=== PATIENT | female | born 1950 | race Caucasian/White ===

== ENCOUNTER → 2021-04-26 05:27 | Outpatient (REF) | payer MEDICARE, MEDICAID, SELFPAY ==
[2021-04-26 09:07] LABS: Cholesterol 142 mg/dL (200); High Density Lipoprotein 42 mg/dL; Triglycerides 281 mg/dL; Very Low Density Lipoprotein 56 mg/dL (5-40)
== END ==
LOC: OLS.SANC 05:27
PROVIDERS: Visit Provider Internal Medicine
DX: J44.9 Chronic obstructive pulmonary disease, unspecified (principal); E78.5 Hyperlipidemia, unspecified; E03.9 Hypothyroidism, unspecified
CPT/HCPCS: 36415; 80061

== ENCOUNTER → 2021-09-24 | Outpatient (REF) | payer MEDICARE, MEDICAID, SELFPAY ==
[2021-09-24 13:53] LABS: Hematocrit 35.6 % (37-47); Hemoglobin 11.6 g/dL (12.0-15.0); Mean Corp Hgb Conc 32.6 g/dL (32-36); Mean Corpuscular Hgb 29.3 pg (27.0-32.0); Mean Corpuscular Volume 89.9 fL (81-99); Mean Platelet Vol. 10.2 fl (6.2-12.0); Platelet Count 268 K/mm3 (150-450); RBC Distribution Width CV 14.6 % (11.6-14.6); RBC Distribution Width SD 48.8 fl (35.1-43.9); Red Blood Count 3.96 M/mm3 (4.2-5.4); White Blood Count 5.9 K/mm3 (4.4-11.0)
[2021-09-24 14:27] LABS: Carbamazepine (Tegretol) 9.7 ug/mL (4.0-12.0)
[2021-09-24 14:28] LABS: AST(SGOT) 20 U/L (15-37); Alanine Aminotransfer ALT/SGPT 15 U/L (13-56); Albumin, Serum 2.9 g/dL (3.2-5.0); Alkaline Phosphatase 132 U/L (45-117); Globulin 3.9 g/dL (2.2-4.2); Protein, Total 6.8 g/dL (6.4-8.2)
== END | disposition home or self-care (01) ==
LOC: OLS.SANC 13:00
PROVIDERS: Visit Provider Internal Medicine
DX: Z79.899 Other long term (current) drug therapy (principal)
CPT/HCPCS: 36415; 80076; 80156; 85027

== ENCOUNTER → 2021-11-05 | Outpatient (REF) | payer MEDICARE, MEDICAID, SELFPAY ==
[2021-11-05 06:48] LABS: Hematocrit 37.4 % (37-47); Hemoglobin 12.3 g/dL (12.0-15.0); Mean Corp Hgb Conc 32.9 g/dL (32-36); Mean Corpuscular Hgb 29.6 pg (27.0-32.0); Mean Corpuscular Volume 89.9 fL (81-99); Mean Platelet Vol. 10.2 fl (6.2-12.0); Platelet Count 294 K/mm3 (150-450); RBC Distribution Width CV 12.8 % (11.6-14.6); RBC Distribution Width SD 42.3 fl (35.1-43.9); Red Blood Count 4.16 M/mm3 (4.2-5.4); White Blood Count 6.9 K/mm3 (4.4-11.0)
[2021-11-05 07:11] LABS: Anion Gap 3 (5-15); BUN 6 mg/dL (7-18); BUN/Creat Ratio 7.3 RATIO (10-20); Calcium,Total 8.6 mg/dL (8.5-10.1); Chloride 106 mmol/L (98-107); Creatinine, Serum 0.83 mg/dL (0.55-1.02); EST Glomerular Filtration Rate 72 mL/min (>60); Est Glom Filt Rate - Afr Amer 87 mL/min (>60); Glucose 89 mg/dL (74-106); Potassium 3.7 mmol/L (3.5-5.1); Sodium Level 141 mmol/L (136-145)
== END | disposition home or self-care (01) ==
LOC: OLS.SANC 04:00
PROVIDERS: Visit Provider Internal Medicine
DX: E78.5 Hyperlipidemia, unspecified (principal); E03.9 Hypothyroidism, unspecified
CPT/HCPCS: 36415; 80048; 85027

== ENCOUNTER → 2021-11-29 | Outpatient (REF) | payer MEDICARE, MEDICAID, SELFPAY ==
[2021-11-29 08:43] LABS: Hematocrit 34.4 % (37-47); Mean Corpuscular Hgb 28.4 pg (27.0-32.0); Mean Corpuscular Volume 88.7 fL (81-99); Mean Platelet Vol. 10.3 fl (6.2-12.0); Platelet Count 277 K/mm3 (150-450); RBC Distribution Width CV 13.1 % (11.6-14.6); RBC Distribution Width SD 42.3 fl (35.1-43.9); Red Blood Count 3.88 M/mm3 (4.2-5.4); White Blood Count 7.3 K/mm3 (4.4-11.0)
[2021-11-29 09:02] LABS: Carbamazepine (Tegretol) 9.6 ug/mL (4.0-12.0)
[2021-11-29 09:06] LABS: ALB/GLOB Ratio 0.7 RATIO (0.9-2.4); AST(SGOT) 13 U/L (15-37); Alanine Aminotransfer ALT/SGPT 14 U/L (13-56); Albumin, Serum 2.7 g/dL (3.2-5.0); Alkaline Phosphatase 128 U/L (45-117); Anion Gap 5 (5-15); BUN 8 mg/dL (7-18); BUN/Creat Ratio 10.8 RATIO (10-20); Bilirubin, Direct 0.09 mg/dL (0.00-0.30); Calcium,Total 8.2 mg/dL (8.5-10.1); Chloride 106 mmol/L (98-107); Creatinine, Serum 0.74 mg/dL (0.55-1.02); EST Glomerular Filtration Rate 81 mL/min (>60); Est Glom Filt Rate - Afr Amer 99 mL/min (>60); Globulin 3.7 g/dL (2.2-4.2); Glucose 115 mg/dL (74-106); Potassium 3.1 mmol/L (3.5-5.1); Protein, Total 6.4 g/dL (6.4-8.2); Sodium Level 142 mmol/L (136-145)
== END | disposition home or self-care (01) ==
LOC: OLS.SANC 05:00
PROVIDERS: Visit Provider Internal Medicine
DX: J96.00 Acute respiratory failure, unspecified whether with hypoxia or hypercapnia (principal); E87.6 Hypokalemia
CPT/HCPCS: 36415; 80053; 80156; 82248; 85027

== ENCOUNTER → 2021-12-13 | Outpatient (REF) | payer MEDICARE, MEDICAID, SELFPAY ==
[2021-12-13 10:44] LABS: Absolute Lymphocyte Count 2.07 X10^3/uL (0.83-4.51); Absolute Neutrophil Count 4.1 X10^3/uL (2.0-7.7); Basophil# 0.09 X10^3/uL; Basophil% 1.3 % (0-1); Eosinophil# 0.38 X10^3/uL; Eosinophils% 5.3 % (0-5); Lymphocyte # 2.07 X10^3/ul (0.83-4.51); Lymphocyte % 28.9 % (19-41); Mean Corpuscular Hgb 28.4 pg (27.0-32.0); Mean Corpuscular Volume 94.6 fL (81-99); Mean Platelet Vol. 10.2 fl (6.2-12.0); Monocyte# 0.51 X10^3/uL; Monocyte% 7.1 % (0-10); NRBC Flagged by Analyzer 0 % (0-5); Neutrophil # 4.09 X10^3/uL (2.7-7.7); Neutrophil % 57.1 % (47-70); Platelet Count 258 K/mm3 (150-450); RBC Distribution Width CV 13.5 % (11.6-14.6); RBC Distribution Width SD 46.8 fl (35.1-43.9); Red Blood Count 4.23 M/mm3 (4.2-5.4); White Blood Count 7.2 K/mm3 (4.4-11.0)
[2021-12-13 11:39] LABS: Anion Gap 6 (5-15); BUN 14 mg/dL (7-18); BUN/Creat Ratio 18.7 RATIO (10-20); Calcium,Total 8.8 mg/dL (8.5-10.1); Chloride 107 mmol/L (98-107); Creatinine, Serum 0.75 mg/dL (0.55-1.02); EST Glomerular Filtration Rate 81 mL/min (>60); Est Glom Filt Rate - Afr Amer 98 mL/min (>60); Glucose 96 mg/dL (74-106); Sodium Level 137 mmol/L (136-145)
== END | disposition home or self-care (01) ==
LOC: OLS.SANC 05:00
PROVIDERS: Visit Provider Internal Medicine
DX: E03.9 Hypothyroidism, unspecified (principal); N17.9 Acute kidney failure, unspecified
CPT/HCPCS: 36415; 80048; 85025

== ENCOUNTER → 2021-12-20 | Outpatient (REF) | payer MEDICARE, MEDICAID, SELFPAY ==
[2021-12-20 09:48] LABS: Cholesterol 124 mg/dL (200); High Density Lipoprotein 33 mg/dL; Triglycerides 154 mg/dL; Very Low Density Lipoprotein 31 mg/dL (5-40)
== END | disposition home or self-care (01) ==
LOC: OLS.SANC 05:00
PROVIDERS: Visit Provider Internal Medicine
DX: E78.5 Hyperlipidemia, unspecified (principal); J44.9 Chronic obstructive pulmonary disease, unspecified; E03.9 Hypothyroidism, unspecified
CPT/HCPCS: 36415; 80061

== ENCOUNTER → 2022-01-17 11:40 | Outpatient (REF) | payer MEDICARE, MEDICAID, SELFPAY ==
[2022-01-17 12:41] LABS: Hematocrit 35.1 % (37-47); Hemoglobin 11.2 g/dL (12.0-15.0); Mean Corp Hgb Conc 31.9 g/dL (32-36); Mean Corpuscular Hgb 28.6 pg (27.0-32.0); Mean Corpuscular Volume 89.5 fL (81-99); Mean Platelet Vol. 9.9 fl (6.2-12.0); Platelet Count 263 K/mm3 (150-450); RBC Distribution Width CV 14.1 % (11.6-14.6); RBC Distribution Width SD 45.7 fl (35.1-43.9); Red Blood Count 3.92 M/mm3 (4.2-5.4); White Blood Count 6.5 K/mm3 (4.4-11.0)
[2022-01-17 12:51] LABS: Anion Gap 5 (5-15); BUN 8 mg/dL (7-18); BUN/Creat Ratio 11.8 RATIO (10-20); Calcium,Total 8.5 mg/dL (8.5-10.1); Chloride 106 mmol/L (98-107); Creatinine, Serum 0.68 mg/dL (0.55-1.02); EST Glomerular Filtration Rate 91 mL/min (>60); Est Glom Filt Rate - Afr Amer 110 mL/min (>60); Glucose 62 mg/dL (74-106); Potassium 3.6 mmol/L (3.5-5.1); Sodium Level 140 mmol/L (136-145)
[2022-01-17 12:56] LABS: Prothrombin Time (Protime)PT. 12.7 SECONDS (11.7-14.9)
== END ==
LOC: OLS.SANC 11:40
PROVIDERS: Visit Provider Internal Medicine
DX: J44.9 Chronic obstructive pulmonary disease, unspecified (principal); E78.5 Hyperlipidemia, unspecified; E03.9 Hypothyroidism, unspecified; Z79.01 Long term (current) use of anticoagulants
CPT/HCPCS: 36415; 80048; 85027; 85610

== ENCOUNTER → 2022-03-14 | Outpatient (REF) | payer MEDICARE, MEDICAID, SELFPAY ==
[2022-03-14 10:25] LABS: Absolute Lymphocyte Count 1.95 X10^3/uL (0.83-4.51); Absolute Neutrophil Count 3.4 X10^3/uL (2.0-7.7); Basophil# 0.07 X10^3/uL; Basophil% 1.1 % (0-1); Eosinophil# 0.29 X10^3/uL; Eosinophils% 4.7 % (0-5); Hematocrit 36.6 % (37-47); Hemoglobin 11.7 g/dL (12.0-15.0); Lymphocyte # 1.95 X10^3/ul (0.83-4.51); Lymphocyte % 31.6 % (19-41); Mean Corpuscular Hgb 28.9 pg (27.0-32.0); Mean Corpuscular Volume 90.4 fL (81-99); Mean Platelet Vol. 10.1 fl (6.2-12.0); Monocyte# 0.43 X10^3/uL; NRBC Flagged by Analyzer 0 % (0-5); Neutrophil # 3.42 X10^3/uL (2.7-7.7); Neutrophil % 55.3 % (47-70); Platelet Count 292 K/mm3 (150-450); RBC Distribution Width CV 13.3 % (11.6-14.6); RBC Distribution Width SD 44.3 fl (35.1-43.9); Red Blood Count 4.05 M/mm3 (4.2-5.4); White Blood Count 6.2 K/mm3 (4.4-11.0)
== END ==
LOC: OLS.SANC 04:00
PROVIDERS: Referring Provider Internal Medicine; Visit Provider Internal Medicine
DX: D69.6 Thrombocytopenia, unspecified (principal)
CPT/HCPCS: 36415; 85025

== ENCOUNTER → 2022-03-25 | Outpatient (REF) | payer MEDICARE, MEDICAID, SELFPAY ==
[2022-03-25 09:52] LABS: Hemoglobin A1c 5.4 % (3.8-5.6)
[2022-03-25 09:53] LABS: Thyroid Stim Hormone (TSH) 0.01 uIU/mL (0.358-3.74)
== END ==
LOC: OLS.SANC 05:00
PROVIDERS: Visit Provider Internal Medicine
DX: E78.5 Hyperlipidemia, unspecified (principal); E03.9 Hypothyroidism, unspecified; Z79.899 Other long term (current) drug therapy
CPT/HCPCS: 36415; 83036; 84443

== ENCOUNTER → 2022-04-25 | Outpatient (REF) | payer MEDICAID, SELFPAY ==
[2022-04-25 08:20] LABS: Hematocrit 33.8 % (37-47); Hemoglobin 10.8 g/dL (12.0-15.0); Mean Corpuscular Hgb 28.4 pg (27.0-32.0); Mean Corpuscular Volume 88.9 fL (81-99); Mean Platelet Vol. 10.2 fl (6.2-12.0); Platelet Count 260 K/mm3 (150-450); RBC Distribution Width SD 45.5 fl (35.1-43.9); White Blood Count 5.5 K/mm3 (4.4-11.0)
[2022-04-25 08:31] LABS: Anion Gap 6 (5-15); BUN 7 mg/dL (7-18); BUN/Creat Ratio 10.6 RATIO (10-20); Calcium,Total 8.7 mg/dL (8.5-10.1); Chloride 105 mmol/L (98-107); Creatinine, Serum 0.66 mg/dL (0.55-1.02); EST Glomerular Filtration Rate 94 mL/min (>60); Est Glom Filt Rate - Afr Amer 113 mL/min (>60); Glucose 110 mg/dL (74-106); Potassium 3.1 mmol/L (3.5-5.1); Sodium Level 143 mmol/L (136-145)
== END | disposition home or self-care (01) ==
LOC: OLS.SANC 05:40
PROVIDERS: Visit Provider Internal Medicine
DX: J44.9 Chronic obstructive pulmonary disease, unspecified (principal); E78.5 Hyperlipidemia, unspecified; E03.9 Hypothyroidism, unspecified
CPT/HCPCS: 36415; 80048; 85027

== ENCOUNTER → 2022-06-09 | Outpatient (REF) | payer MEDICARE, MEDICAID, SELFPAY ==
[2022-06-09 08:46] LABS: Hematocrit 29.6 % (37-47); Hemoglobin 9.2 g/dL (12.0-15.0); Mean Corp Hgb Conc 31.1 g/dL (32-36); Mean Corpuscular Hgb 27.9 pg (27.0-32.0); Mean Corpuscular Volume 89.7 fL (81-99); Mean Platelet Vol. 9.9 fl (6.2-12.0); Platelet Count 502 K/mm3 (150-450); RBC Distribution Width CV 15.5 % (11.6-14.6); RBC Distribution Width SD 50.8 fl (35.1-43.9); White Blood Count 11.4 K/mm3 (4.4-11.0)
[2022-06-09 08:56] LABS: Anion Gap 5 (5-15); BUN 7 mg/dL (7-18); Calcium,Total 8.2 mg/dL (8.5-10.1); Chloride 101 mmol/L (98-107); Creatinine, Serum 0.58 mg/dL (0.55-1.02); EST Glomerular Filtration Rate 108 mL/min (>60); Est Glom Filt Rate - Afr Amer 130 mL/min (>60); Glucose 111 mg/dL (74-106); Potassium 3.1 mmol/L (3.5-5.1); Sodium Level 139 mmol/L (136-145)
== END ==
LOC: OLS.SANC 05:00
PROVIDERS: Visit Provider Internal Medicine
DX: J44.9 Chronic obstructive pulmonary disease, unspecified (principal); E78.5 Hyperlipidemia, unspecified; E03.9 Hypothyroidism, unspecified
CPT/HCPCS: 36415; 80048; 85027

== ENCOUNTER → 2022-06-13 | Outpatient (REF) | payer MEDICARE, MEDICAID, SELFPAY ==
[2022-06-13 08:53] LABS: Hematocrit 30.4 % (37-47); Hemoglobin 9.3 g/dL (12.0-15.0); Mean Corp Hgb Conc 30.6 g/dL (32-36); Mean Corpuscular Hgb 27.8 pg (27.0-32.0); Mean Corpuscular Volume 90.7 fL (81-99); Mean Platelet Vol. 9.5 fl (6.2-12.0); Platelet Count 624 K/mm3 (150-450); RBC Distribution Width CV 15.6 % (11.6-14.6); RBC Distribution Width SD 51.8 fl (35.1-43.9); Red Blood Count 3.35 M/mm3 (4.2-5.4); White Blood Count 10.4 K/mm3 (4.4-11.0)
[2022-06-13 08:59] LABS: Anion Gap 6 (5-15); BUN 6 mg/dL (7-18); BUN/Creat Ratio 9.7 RATIO (10-20); Calcium,Total 8.7 mg/dL (8.5-10.1); Chloride 102 mmol/L (98-107); Creatinine, Serum 0.62 mg/dL (0.55-1.02); EST Glomerular Filtration Rate 100 mL/min (>60); Est Glom Filt Rate - Afr Amer 121 mL/min (>60); Glucose 102 mg/dL (74-106); Potassium 3.7 mmol/L (3.5-5.1); Sodium Level 140 mmol/L (136-145)
== END ==
LOC: OLS.SANC 06:25
PROVIDERS: Visit Provider Internal Medicine
DX: J44.9 Chronic obstructive pulmonary disease, unspecified (principal); E03.9 Hypothyroidism, unspecified
CPT/HCPCS: 36415; 80048; 85027

== ENCOUNTER → 2022-08-03 | Outpatient (REF) | payer MEDICARE, MEDICAID, SELFPAY ==
[2022-08-03 09:14] LABS: Vitamin D,25 Hydroxy 41.8 ng/mL
== END ==
LOC: OLS.SANC 05:00
PROVIDERS: Visit Provider Internal Medicine
DX: E55.9 Vitamin D deficiency, unspecified (principal)
CPT/HCPCS: 36415; 82306

== ENCOUNTER → 2022-08-16 | Outpatient (REF) | payer MEDICARE, MEDICAID, SELFPAY ==
[2022-08-16 09:49] LABS: Hematocrit 33.3 % (37-47); Hemoglobin 10.1 g/dL (12.0-15.0); Mean Corp Hgb Conc 30.3 g/dL (32-36); Mean Corpuscular Hgb 25.6 pg (27.0-32.0); Mean Corpuscular Volume 84.5 fL (81-99); Platelet Count 303 K/mm3 (150-450); RBC Distribution Width CV 15.6 % (11.6-14.6); RBC Distribution Width SD 47.9 fl (35.1-43.9); Red Blood Count 3.94 M/mm3 (4.2-5.4); White Blood Count 6.7 K/mm3 (4.4-11.0)
[2022-08-16 10:07] LABS: Anion Gap 8 (5-15); BUN 8 mg/dL (7-18); BUN/Creat Ratio 13.5 RATIO (10-20); Calcium,Total 8.5 mg/dL (8.5-10.1); Chloride 105 mmol/L (98-107); Creatinine, Serum 0.59 mg/dL (0.55-1.02); EST Glomerular Filtration Rate 105 mL/min (>60); Est Glom Filt Rate - Afr Amer 127 mL/min (>60); Glucose 99 mg/dL (74-106); Potassium 3.1 mmol/L (3.5-5.1); Sodium Level 143 mmol/L (136-145)
== END ==
LOC: OLS.SANC 05:00
PROVIDERS: Visit Provider Internal Medicine
DX: J44.9 Chronic obstructive pulmonary disease, unspecified (principal); D64.9 Anemia, unspecified
CPT/HCPCS: 36415; 80048; 85027

== ENCOUNTER → 2022-08-18 | Outpatient (REF) | payer MEDICARE, MEDICAID, SELFPAY ==
[2022-08-18 09:58] LABS: Hematocrit 34.8 % (37-47); Hemoglobin 10.1 g/dL (12.0-15.0); Mean Corpuscular Hgb 25.4 pg (27.0-32.0); Mean Corpuscular Volume 87.4 fL (81-99); Mean Platelet Vol. 10.1 fl (6.2-12.0); Platelet Count 317 K/mm3 (150-450); RBC Distribution Width CV 15.9 % (11.6-14.6); RBC Distribution Width SD 50.2 fl (35.1-43.9); Red Blood Count 3.98 M/mm3 (4.2-5.4); White Blood Count 6.8 K/mm3 (4.4-11.0)
[2022-08-18 10:06] LABS: Anion Gap 4 (5-15); BUN 7 mg/dL (7-18); Calcium,Total 8.7 mg/dL (8.5-10.1); Chloride 108 mmol/L (98-107); Creatinine, Serum 0.58 mg/dL (0.55-1.02); EST Glomerular Filtration Rate 108 mL/min (>60); Est Glom Filt Rate - Afr Amer 131 mL/min (>60); Glucose 88 mg/dL (74-106); Potassium 3.8 mmol/L (3.5-5.1); Sodium Level 143 mmol/L (136-145)
== END ==
LOC: OLS.SANC 05:00
PROVIDERS: Visit Provider Internal Medicine
DX: J44.9 Chronic obstructive pulmonary disease, unspecified (principal); E78.5 Hyperlipidemia, unspecified; E03.9 Hypothyroidism, unspecified
CPT/HCPCS: 36415; 80048; 85027

== ENCOUNTER → 2022-09-19 | Outpatient (REF) | payer MEDICARE, MEDICAID, SELFPAY ==
[2022-09-19 09:16] LABS: Hematocrit 33.6 % (37-47); Hemoglobin 10.6 g/dL (12.0-15.0); Mean Corp Hgb Conc 31.5 g/dL (32-36); Mean Corpuscular Hgb 26.4 pg (27.0-32.0); Mean Corpuscular Volume 83.8 fL (81-99); Mean Platelet Vol. 10.3 fl (6.2-12.0); Platelet Count 261 K/mm3 (150-450); RBC Distribution Width CV 16.9 % (11.6-14.6); RBC Distribution Width SD 51.5 fl (35.1-43.9); Red Blood Count 4.01 M/mm3 (4.2-5.4); White Blood Count 7.5 K/mm3 (4.4-11.0)
[2022-09-19 10:02] LABS: Anion Gap 7 (5-15); BUN 8 mg/dL (7-18); BUN/Creat Ratio 12.5 RATIO (10-20); Calcium,Total 8.9 mg/dL (8.5-10.1); Chloride 107 mmol/L (98-107); Creatinine, Serum 0.64 mg/dL (0.55-1.02); EST Glomerular Filtration Rate 97 mL/min (>60); Est Glom Filt Rate - Afr Amer 117 mL/min (>60); Glucose 100 mg/dL (74-106); Potassium 3.4 mmol/L (3.5-5.1); Sodium Level 145 mmol/L (136-145)
== END ==
LOC: OLS.SANC 05:00
PROVIDERS: Visit Provider Internal Medicine
DX: J44.9 Chronic obstructive pulmonary disease, unspecified (principal); E78.5 Hyperlipidemia, unspecified; E03.9 Hypothyroidism, unspecified; K58.9 Irritable bowel syndrome, unspecified
CPT/HCPCS: 36415; 80048; 82274; 85027; 87493

== ENCOUNTER → 2022-09-26 | Outpatient (REF) | payer MEDICARE, MEDICAID, SELFPAY ==
[2022-09-26 08:34] LABS: Anion Gap 6 (5-15); BUN 9 mg/dL (7-18); BUN/Creat Ratio 12.5 RATIO (10-20); Calcium,Total 8.5 mg/dL (8.5-10.1); Chloride 106 mmol/L (98-107); Creatinine, Serum 0.72 mg/dL (0.55-1.02); EST Glomerular Filtration Rate 85 mL/min (>60); Est Glom Filt Rate - Afr Amer 102 mL/min (>60); Glucose 92 mg/dL (74-106); Potassium 3.7 mmol/L (3.5-5.1); Sodium Level 141 mmol/L (136-145)
== END ==
LOC: OLS.SANC 05:00
PROVIDERS: Visit Provider Internal Medicine
DX: J44.9 Chronic obstructive pulmonary disease, unspecified (principal); E78.5 Hyperlipidemia, unspecified
CPT/HCPCS: 36415; 80048

== ENCOUNTER → 2022-10-17 | Outpatient (REF) | payer MEDICARE, MEDICAID, SELFPAY ==
[2022-10-17 08:47] LABS: Hematocrit 34.6 % (37-47); Hemoglobin 10.4 g/dL (12.0-15.0); Mean Corp Hgb Conc 30.1 g/dL (32-36); Mean Corpuscular Hgb 26.7 pg (27.0-32.0); Mean Corpuscular Volume 88.7 fL (81-99); Mean Platelet Vol. 10.4 fl (6.2-12.0); Platelet Count 251 K/mm3 (150-450); RBC Distribution Width CV 16.2 % (11.6-14.6); RBC Distribution Width SD 52.4 fl (35.1-43.9); White Blood Count 6.5 K/mm3 (4.4-11.0)
[2022-10-17 09:09] LABS: Anion Gap 7 (5-15); BUN 6 mg/dL (7-18); Calcium,Total 8.5 mg/dL (8.5-10.1); Chloride 105 mmol/L (98-107); EST Glomerular Filtration Rate 105 mL/min (>60); Est Glom Filt Rate - Afr Amer 126 mL/min (>60); Glucose 121 mg/dL (74-106); Sodium Level 143 mmol/L (136-145)
== END ==
LOC: OLS.SANC 05:00
PROVIDERS: Visit Provider Internal Medicine
DX: J44.9 Chronic obstructive pulmonary disease, unspecified (principal); E87.6 Hypokalemia; E87.0 Hyperosmolality and hypernatremia
CPT/HCPCS: 36415; 80048; 85027

== ENCOUNTER → 2022-10-19 | Outpatient (REF) | payer MEDICARE, MEDICAID, SELFPAY ==
[2022-10-19 10:22] LABS: Anion Gap 7 (5-15); BUN 13 mg/dL (7-18); Calcium,Total 8.4 mg/dL (8.5-10.1); Chloride 108 mmol/L (98-107); Creatinine, Serum 0.77 mg/dL (0.55-1.02); EST Glomerular Filtration Rate 79 mL/min (>60); Est Glom Filt Rate - Afr Amer 95 mL/min (>60); Glucose 116 mg/dL (74-106); Potassium 3.9 mmol/L (3.5-5.1); Sodium Level 144 mmol/L (136-145); Thyroid Stim Hormone (TSH) < 0.01 uIU/mL (0.358-3.74)
== END ==
LOC: OLS.SANC 05:00
PROVIDERS: Visit Provider Internal Medicine
DX: J44.9 Chronic obstructive pulmonary disease, unspecified (principal); E03.9 Hypothyroidism, unspecified
CPT/HCPCS: 36415; 80048; 84443

== ENCOUNTER → 2022-11-17 | Outpatient (REF) | payer MEDICARE, MEDICAID, SELFPAY ==
[2022-11-17 10:09] LABS: Hematocrit 33.9 % (37-47); Hemoglobin 10.5 g/dL (12.0-15.0); Mean Corpuscular Hgb 27.9 pg (27.0-32.0); Mean Corpuscular Volume 90.2 fL (81-99); Mean Platelet Vol. 10.2 fl (6.2-12.0); Platelet Count 249 K/mm3 (150-450); RBC Distribution Width CV 15.5 % (11.6-14.6); RBC Distribution Width SD 51.2 fl (35.1-43.9); Red Blood Count 3.76 M/mm3 (4.2-5.4)
[2022-11-17 10:17] LABS: Anion Gap 3 (5-15); BUN 8 mg/dL (7-18); BUN/Creat Ratio 12.2 RATIO (10-20); Calcium,Total 8.6 mg/dL (8.5-10.1); Chloride 103 mmol/L (98-107); Creatinine, Serum 0.66 mg/dL (0.55-1.02); EST Glomerular Filtration Rate 94 mL/min (>60); Est Glom Filt Rate - Afr Amer 113 mL/min (>60); Glucose 127 mg/dL (74-106); Potassium 3.4 mmol/L (3.5-5.1); Sodium Level 141 mmol/L (136-145)
== END ==
LOC: OLS.SANC 06:34
PROVIDERS: Visit Provider Internal Medicine
DX: R55 Syncope and collapse (principal); J44.9 Chronic obstructive pulmonary disease, unspecified; M79.7 Fibromyalgia
CPT/HCPCS: 36415; 80048; 85027

== ENCOUNTER → 2022-11-24 | Outpatient (REF) | payer MEDICARE, MEDICAID, SELFPAY ==
[2022-11-24 08:20] LABS: Hematocrit 33.2 % (37-47); Hemoglobin 10.5 g/dL (12.0-15.0); Mean Corp Hgb Conc 31.6 g/dL (32-36); Mean Corpuscular Hgb 28.2 pg (27.0-32.0); Mean Platelet Vol. 10.1 fl (6.2-12.0); Platelet Count 259 K/mm3 (150-450); RBC Distribution Width CV 15.5 % (11.6-14.6); RBC Distribution Width SD 50.9 fl (35.1-43.9); Red Blood Count 3.73 M/mm3 (4.2-5.4)
[2022-11-24 08:30] LABS: Anion Gap 5 (5-15); BUN 8 mg/dL (7-18); BUN/Creat Ratio 12.9 RATIO (10-20); Calcium,Total 8.8 mg/dL (8.5-10.1); Chloride 105 mmol/L (98-107); Creatinine, Serum 0.62 mg/dL (0.55-1.02); EST Glomerular Filtration Rate 100 mL/min (>60); Est Glom Filt Rate - Afr Amer 121 mL/min (>60); Glucose 82 mg/dL (74-106); Potassium 3.3 mmol/L (3.5-5.1); Sodium Level 143 mmol/L (136-145)
== END ==
LOC: OLS.SANC 05:00
PROVIDERS: Visit Provider Internal Medicine
DX: J44.9 Chronic obstructive pulmonary disease, unspecified (principal); E78.5 Hyperlipidemia, unspecified; E03.9 Hypothyroidism, unspecified
CPT/HCPCS: 36415; 80048; 85027

== ENCOUNTER → 2022-12-01 | Outpatient (REF) | payer MEDICARE, MEDICAID, SELFPAY ==
[2022-12-01 08:37] LABS: Anion Gap 1 (5-15); BUN 13 mg/dL (7-18); Calcium,Total 8.8 mg/dL (8.5-10.1); Chloride 105 mmol/L (98-107); Creatinine, Serum 0.82 mg/dL (0.55-1.02); EST Glomerular Filtration Rate 73 mL/min (>60); Est Glom Filt Rate - Afr Amer 88 mL/min (>60); Glucose 89 mg/dL (74-106); Potassium 3.8 mmol/L (3.5-5.1); Sodium Level 140 mmol/L (136-145)
== END ==
LOC: OLS.SANC 05:00
PROVIDERS: Visit Provider Internal Medicine
DX: J44.9 Chronic obstructive pulmonary disease, unspecified (principal); E78.5 Hyperlipidemia, unspecified; E03.9 Hypothyroidism, unspecified
CPT/HCPCS: 36415; 80048

== ENCOUNTER → 2022-12-19 | Outpatient (REF) | payer MEDICARE, MEDICAID, SELFPAY ==
[2022-12-19 09:34] LABS: Hematocrit 35.1 % (37-47); Mean Corp Hgb Conc 31.3 g/dL (32-36); Mean Corpuscular Hgb 28.9 pg (27.0-32.0); Mean Corpuscular Volume 92.1 fL (81-99); Mean Platelet Vol. 10.8 fl (6.2-12.0); Platelet Count 261 K/mm3 (150-450); RBC Distribution Width CV 14.6 % (11.6-14.6); RBC Distribution Width SD 49.1 fl (35.1-43.9); Red Blood Count 3.81 M/mm3 (4.2-5.4); White Blood Count 6.9 K/mm3 (4.4-11.0)
[2022-12-19 09:55] LABS: Anion Gap 6 (5-15); BUN 11 mg/dL (7-18); BUN/Creat Ratio 14.1 RATIO (10-20); Calcium,Total 8.8 mg/dL (8.5-10.1); Chloride 106 mmol/L (98-107); Creatinine, Serum 0.78 mg/dL (0.55-1.02); EST Glomerular Filtration Rate 77 mL/min (>60); Est Glom Filt Rate - Afr Amer 93 mL/min (>60); Glucose 83 mg/dL (74-106); Sodium Level 145 mmol/L (136-145)
== END ==
LOC: OLS.SANC 05:00
PROVIDERS: Visit Provider Internal Medicine
DX: J44.9 Chronic obstructive pulmonary disease, unspecified (principal); E78.5 Hyperlipidemia, unspecified; E03.9 Hypothyroidism, unspecified
CPT/HCPCS: 36415; 80048; 85027

== ENCOUNTER → 2022-12-26 | Outpatient (REF) | payer MEDICARE, MEDICAID, SELFPAY ==
[2022-12-26 08:59] LABS: Hematocrit 36.1 % (37-47); Hemoglobin 11.2 g/dL (12.0-15.0); Mean Corpuscular Hgb 28.3 pg (27.0-32.0); Mean Corpuscular Volume 91.2 fL (81-99); Mean Platelet Vol. 10.2 fl (6.2-12.0); Platelet Count 241 K/mm3 (150-450); RBC Distribution Width CV 14.2 % (11.6-14.6); Red Blood Count 3.96 M/mm3 (4.2-5.4); White Blood Count 7.2 K/mm3 (4.4-11.0)
[2022-12-26 09:16] LABS: BUN 11 mg/dL (7-18); Creatinine, Serum 0.69 mg/dL (0.55-1.02); EST Glomerular Filtration Rate 88 mL/min (>60); Glucose 93 mg/dL (74-106)
[2022-12-26 09:17] LABS: ALB/GLOB Ratio 0.8 RATIO (0.9-2.4); AST(SGOT) 17 U/L (15-37); Alanine Aminotransfer ALT/SGPT 18 U/L (13-56); Albumin, Serum 2.9 g/dL (3.2-5.0); Alkaline Phosphatase 124 U/L (45-117); Anion Gap 6 (5-15); BUN/Creat Ratio 15.9 RATIO (10-20); Calcium,Total 8.3 mg/dL (8.5-10.1); Chloride 105 mmol/L (98-107); Est Glom Filt Rate - Afr Amer 106 mL/min (>60); Globulin 3.6 g/dL (2.2-4.2); Potassium 3.5 mmol/L (3.5-5.1); Protein, Total 6.5 g/dL (6.4-8.2); Sodium Level 143 mmol/L (136-145)
== END ==
LOC: OLS.SANC 04:00
PROVIDERS: Referring Provider Internal Medicine; Visit Provider Internal Medicine
DX: J44.9 Chronic obstructive pulmonary disease, unspecified (principal); E78.5 Hyperlipidemia, unspecified
CPT/HCPCS: 36415; 80053; 85027

== ENCOUNTER → 2023-01-04 | Outpatient (REF) | payer MEDICARE, MEDICAID, SELFPAY ==
[2023-01-04 09:30] LABS: Anion Gap 7 (5-15); BUN 11 mg/dL (7-18); BUN/Creat Ratio 15.7 RATIO (10-20); Calcium,Total 8.8 mg/dL (8.5-10.1); Chloride 105 mmol/L (98-107); EST Glomerular Filtration Rate 87 mL/min (>60); Est Glom Filt Rate - Afr Amer 106 mL/min (>60); Glucose 93 mg/dL (74-106); Potassium 3.6 mmol/L (3.5-5.1); Sodium Level 143 mmol/L (136-145)
== END ==
LOC: OLS.SANC 05:00
PROVIDERS: Visit Provider Internal Medicine
DX: J44.9 Chronic obstructive pulmonary disease, unspecified (principal); E78.5 Hyperlipidemia, unspecified
CPT/HCPCS: 36415; 80048

== ENCOUNTER → 2023-01-31 05:00 | Outpatient (REF) | payer MEDICARE, MEDICAID, SELFPAY | LOC: PR 05:00 | PROVIDERS: Visit Provider Internal Medicine | DX: F03.90 Unspecified dementia, unspecified severity, without behavioral disturbance, psychotic disturbance, mood disturbance, and anxiety (principal) | CPT/HCPCS: 36415 ==

== ENCOUNTER → 2023-02-06 | Outpatient (REF) | payer MEDICARE, MEDICAID, SELFPAY | LOC: OLS.SANC 04:00 | PROVIDERS: Referring Provider Internal Medicine; Visit Provider Internal Medicine | DX: Z79.899 Other long term (current) drug therapy (principal) | CPT/HCPCS: 36415 ==

== ENCOUNTER → 2023-04-25 | Outpatient (REF) | payer MEDICARE, MEDICAID, SELFPAY ==
[2023-04-25 09:59] LABS: Cholesterol 141 mg/dL (200); High Density Lipoprotein 44 mg/dL; Triglycerides 84 mg/dL; Very Low Density Lipoprotein 17 mg/dL (5-40)
== END ==
LOC: OLS.SANC 05:00
PROVIDERS: Visit Provider Internal Medicine
DX: J44.9 Chronic obstructive pulmonary disease, unspecified (principal); E78.5 Hyperlipidemia, unspecified; E03.9 Hypothyroidism, unspecified
CPT/HCPCS: 36415; 80061

== ENCOUNTER → 2023-06-01 | Outpatient (REF) | payer MEDICARE, MEDICAID, SELFPAY ==
[2023-06-01 09:42] LABS: Erythrocyte Sedimentation Rate 8 mm/hr (0-30)
== END ==
LOC: OLS.SANC 05:00
PROVIDERS: Visit Provider Internal Medicine
DX: M17.11 Unilateral primary osteoarthritis, right knee (principal)
CPT/HCPCS: 36415; 85652; 86140

== ENCOUNTER → 2023-06-20 | Outpatient (REF) | payer MEDICARE, MEDICAID, SELFPAY ==
[2023-06-20 10:40] LABS: Color, Urine Yellow (Yellow); Glucose, Dipstick Normal (Normal); Ketone-Dipstick Negative (Negative); Leukocyte Esterase-Dipstick 500 /ul (Negative); Nitrite-Dipstick Negative (Negative); Occult Blood-Urine Negative /ul (Negative); Protein-Dipstick 15 mg/dl (Negative); Specific Gravity, Urine 1.015 (1.002-1.030); Urine Bilirubin Dipstick Negative (Negative); Urine Clarity Clear (Clear); Urine Urobilinogen Normal (Normal)
== END ==
LOC: OLS.SANC 14:00
PROVIDERS: Visit Provider Internal Medicine
DX: N39.0 Urinary tract infection, site not specified (principal)
CPT/HCPCS: 81002; 87077; 87086; 87088; 87186

== ENCOUNTER → 2023-06-26 | Outpatient (REF) | payer MEDICARE, MEDICAID, SELFPAY ==
[2023-06-26 09:15] LABS: Mucous, Urine 0 SEEN /hpf (<or=2+); Red Blood Cells-Urine 0 SEEN /hpf (0-5); Squamous Epithelial Cells - UA 0 SEEN /hpf (5-10)
[2023-06-26 09:23] LABS: Color, Urine Yellow (Yellow); Glucose, Dipstick Normal (Normal); Ketone-Dipstick Negative (Negative); Leukocyte Esterase-Dipstick 100 /ul (Negative); Nitrite-Dipstick Negative (Negative); Occult Blood-Urine Negative /ul (Negative); Protein-Dipstick 15 mg/dl (Negative); Specific Gravity, Urine 1.015 (1.002-1.030); Urine Bilirubin Dipstick Negative (Negative); Urine Clarity Sl. Cloudy (Clear); Urine Urobilinogen Normal (Normal)
[2023-06-26 09:36] LABS: Bacteria 2+ /hpf (None Seen); White Blood Cells 10-25 SEEN /hpf (0-5)
== END ==
LOC: OLS.SANC 05:00
PROVIDERS: Visit Provider Internal Medicine
DX: N39.0 Urinary tract infection, site not specified (principal)
CPT/HCPCS: 81001; 87077; 87086; 87088; 87186

== ENCOUNTER → 2023-07-31 | Outpatient (REF) | payer MEDICARE, MEDICAID, SELFPAY ==
[2023-07-31 09:07] LABS: Vitamin D,25 Hydroxy 52.8 ng/mL
== END ==
LOC: OLS.SANC 05:00
PROVIDERS: Visit Provider Internal Medicine
DX: E55.9 Vitamin D deficiency, unspecified (principal); J44.9 Chronic obstructive pulmonary disease, unspecified; E78.5 Hyperlipidemia, unspecified; E03.9 Hypothyroidism, unspecified
CPT/HCPCS: 36415; 82306

== ENCOUNTER → 2023-08-10 | Outpatient (REF) | payer MEDICARE, MEDICAID, SELFPAY ==
[2023-08-10 10:11] LABS: Carbamazepine (Tegretol) 11.1 ug/mL (4.0-12.0)
== END ==
LOC: OLS.SANC 05:00
PROVIDERS: Visit Provider Internal Medicine
DX: J44.9 Chronic obstructive pulmonary disease, unspecified (principal); E78.5 Hyperlipidemia, unspecified; E03.9 Hypothyroidism, unspecified; Z79.899 Other long term (current) drug therapy
CPT/HCPCS: 36415; 80156

== ENCOUNTER → 2023-10-24 | Outpatient (REF) | payer MEDICARE, MEDICAID, SELFPAY ==
[2023-10-24 09:17] LABS: Hematocrit 40.2 % (37-47); Hemoglobin 12.8 g/dL (12.0-15.0); Mean Corp Hgb Conc 31.8 g/dL (32-36); Mean Corpuscular Hgb 29.6 pg (27.0-32.0); Mean Corpuscular Volume 93.1 fL (81-99); Mean Platelet Vol. 10.2 fl (6.2-12.0); Platelet Count 269 K/mm3 (150-450); RBC Distribution Width CV 12.9 % (11.6-14.6); RBC Distribution Width SD 44.2 fl (35.1-43.9); Red Blood Count 4.32 M/mm3 (4.2-5.4); White Blood Count 8.2 K/mm3 (4.4-11.0)
[2023-10-24 09:39] LABS: ALB/GLOB Ratio 0.8 RATIO (0.9-2.4); AST(SGOT) 23 U/L (15-37); Alanine Aminotransfer ALT/SGPT 19 U/L (13-56); Albumin, Serum 3.1 g/dL (3.2-5.0); Alkaline Phosphatase 142 U/L (45-117); Anion Gap 1 (5-15); BUN 10 mg/dL (7-18); BUN/Creat Ratio 12.7 RATIO (10-20); Calcium,Total 9.1 mg/dL (8.5-10.1); Chloride 106 mmol/L (98-107); Cholesterol 174 mg/dL (200); Creatinine, Serum 0.79 mg/dL (0.55-1.02); EST Glomerular Filtration Rate 76 mL/min (>60); Est Glom Filt Rate - Afr Amer 92 mL/min (>60); Globulin 4.1 g/dL (2.2-4.2); Glucose 89 mg/dL (74-106); High Density Lipoprotein 38 mg/dL; Potassium 4.5 mmol/L (3.5-5.1); Protein, Total 7.2 g/dL (6.4-8.2); Sodium Level 140 mmol/L (136-145); Triglycerides 348 mg/dL; Very Low Density Lipoprotein 70 mg/dL (5-40)
== END ==
LOC: OLS.SANC 05:00
PROVIDERS: Visit Provider Internal Medicine
DX: E78.5 Hyperlipidemia, unspecified (principal); E03.9 Hypothyroidism, unspecified
CPT/HCPCS: 36415; 80053; 80061; 85027

== ENCOUNTER → 2023-11-28 05:00 | Outpatient (REF) | payer MEDICARE, MEDICAID, SELFPAY ==
[2023-11-28 09:47] LABS: Thyroid Stim Hormone (TSH) < 0.01 uIU/mL (0.358-3.74)
== END ==
LOC: OLS.SANC 05:00
PROVIDERS: Visit Provider Internal Medicine
DX: E03.9 Hypothyroidism, unspecified (principal); Z79.899 Other long term (current) drug therapy
CPT/HCPCS: 36415; 84443

== ENCOUNTER → 2023-12-29 | Outpatient (REF) | payer MEDICARE, MEDICAID, SELFPAY ==
[2023-12-29 09:16] LABS: Thyroid Stim Hormone (TSH) < 0.01 uIU/mL (0.358-3.74)
== END ==
LOC: OLS.SANC 05:00
PROVIDERS: Visit Provider Internal Medicine
DX: E03.9 Hypothyroidism, unspecified (principal)
CPT/HCPCS: 36415; 84443

== ENCOUNTER → 2024-01-10 06:15 | Outpatient (REF) | payer MEDICARE, MEDICAID, SELFPAY ==
[2024-01-10 08:23] LABS: Thyroid Stim Hormone (TSH) 0.01 uIU/mL (0.358-3.74)
== END ==
LOC: OLS.SANC 06:15
PROVIDERS: Visit Provider Internal Medicine
DX: J44.9 Chronic obstructive pulmonary disease, unspecified (principal); E78.5 Hyperlipidemia, unspecified; E03.9 Hypothyroidism, unspecified
CPT/HCPCS: 36415; 84443

== ENCOUNTER → 2024-01-15 04:00 | Outpatient (REF) | payer MEDICARE, MEDICAID, SELFPAY ==
[2024-01-15 09:37] LABS: Thyroid Stim Hormone (TSH) 0.01 uIU/mL (0.358-3.74)
== END ==
LOC: OLS.SANC 04:00
PROVIDERS: Referring Provider Internal Medicine; Visit Provider Internal Medicine
DX: J44.9 Chronic obstructive pulmonary disease, unspecified (principal); E78.5 Hyperlipidemia, unspecified; E03.9 Hypothyroidism, unspecified
CPT/HCPCS: 36415; 84443

== ENCOUNTER → 2024-02-09 05:00 | Outpatient (REF) | payer MEDICARE, MEDICAID, SELFPAY | LOC: OLS.SANC 05:00 | PROVIDERS: Visit Provider Internal Medicine | DX: Z79.899 Other long term (current) drug therapy (principal) | CPT/HCPCS: 36415; 80156 ==

== ENCOUNTER → 2024-02-26 | Outpatient (REF) | payer MEDICARE, MEDICAID, SELFPAY | LOC: OLS.SANC 05:00 | PROVIDERS: Visit Provider Internal Medicine | DX: E03.9 Hypothyroidism, unspecified (principal) | CPT/HCPCS: 36415; 84443 ==

== ENCOUNTER → 2024-03-05 | Outpatient (REF) | payer MEDICARE, MEDICAID, SELFPAY ==
[2024-03-05 09:49] LABS: Hematocrit 38.1 % (37-47); Hemoglobin 12.3 g/dL (12.0-15.0); Mean Corp Hgb Conc 32.3 g/dL (32-36); Mean Corpuscular Hgb 30.1 pg (27.0-32.0); Mean Corpuscular Volume 93.2 fL (81-99); Mean Platelet Vol. 10.1 fl (6.2-12.0); Platelet Count 214 K/mm3 (150-450); RBC Distribution Width SD 47.2 fl (35.1-43.9); Red Blood Count 4.09 M/mm3 (4.2-5.4); White Blood Count 7.3 K/mm3 (4.4-11.0)
[2024-03-05 10:08] LABS: Anion Gap 4 (5-15); BUN 15 mg/dL (7-18); BUN/Creat Ratio 15.6 RATIO (10-20); Calcium,Total 8.7 mg/dL (8.5-10.1); Chloride 105 mmol/L (98-107); Creatinine, Serum 0.96 mg/dL (0.55-1.02); EST Glomerular Filtration Rate 60 mL/min (>60); Est Glom Filt Rate - Afr Amer 73 mL/min (>60); Glucose 91 mg/dL (74-106); Magnesium 1.9 mg/dL (1.6-2.6); Potassium 4.1 mmol/L (3.5-5.1); Sodium Level 138 mmol/L (136-145)
== END ==
LOC: OLS.SANC 05:00
PROVIDERS: Referring Provider Internal Medicine; Visit Provider Internal Medicine
DX: J44.9 Chronic obstructive pulmonary disease, unspecified (principal); E78.5 Hyperlipidemia, unspecified; E03.9 Hypothyroidism, unspecified
CPT/HCPCS: 36415; 80048; 83735; 85027

== ENCOUNTER → 2024-04-04 | Outpatient (REF) | payer MEDICARE, MEDICAID, SELFPAY ==
[2024-04-04 08:16] LABS: Cholesterol 146 mg/dL (200); High Density Lipoprotein 34 mg/dL; Triglycerides 244 mg/dL; Very Low Density Lipoprotein 49 mg/dL (5-40)
== END ==
LOC: OLS.SANC 05:00
PROVIDERS: Visit Provider Internal Medicine
DX: J44.9 Chronic obstructive pulmonary disease, unspecified (principal); E78.5 Hyperlipidemia, unspecified; E03.9 Hypothyroidism, unspecified
CPT/HCPCS: 36415; 80061

== ENCOUNTER → 2024-04-08 04:00 | Outpatient (REF) | payer MEDICARE, MEDICAID, SELFPAY ==
[2024-04-08 09:46] LABS: Thyroid Stim Hormone (TSH) 0.262 uIU/mL (0.358-3.740)
== END ==
LOC: OLS.SANC 04:00
DX: E11.9 Type 2 diabetes mellitus without complications (principal); E03.9 Hypothyroidism, unspecified; J44.9 Chronic obstructive pulmonary disease, unspecified
CPT/HCPCS: 36415; 84443

== ENCOUNTER → 2024-04-22 | Outpatient (REF) | payer MEDICARE, MEDICAID, SELFPAY ==
[2024-04-22 10:53] LABS: Hematocrit 41.8 % (37-47); Hemoglobin 12.7 g/dL (12.0-15.0); Mean Corp Hgb Conc 30.4 g/dL (32-36); Mean Corpuscular Hgb 28.3 pg (27.0-32.0); Mean Corpuscular Volume 93.1 fL (81-99); Mean Platelet Vol. 9.8 fl (6.2-12.0); Platelet Count 238 K/mm3 (150-450); RBC Distribution Width CV 15.5 % (11.6-14.6); RBC Distribution Width SD 53.1 fl (35.1-43.9); Red Blood Count 4.49 M/mm3 (4.2-5.4); White Blood Count 11.4 K/mm3 (4.4-11.0)
[2024-04-22 11:09] LABS: ALB/GLOB Ratio 0.7 RATIO (0.9-2.4); AST(SGOT) 27 U/L (15-37); Alanine Aminotransfer ALT/SGPT 16 U/L (13-56); Albumin, Serum 2.7 g/dL (3.2-5.0); Alkaline Phosphatase 104 U/L (45-117); Anion Gap 5 (5-15); BUN 15 mg/dL (7-18); BUN/Creat Ratio 18.3 RATIO (10-20); Calcium,Total 8.8 mg/dL (8.5-10.1); Chloride 108 mmol/L (98-107); Cholesterol 158 mg/dL (200); Creatinine, Serum 0.82 mg/dL (0.55-1.02); EST Glomerular Filtration Rate 72 mL/min (>60); Est Glom Filt Rate - Afr Amer 87 mL/min (>60); Globulin 3.9 g/dL (2.2-4.2); Glucose 93 mg/dL (74-106); High Density Lipoprotein 48 mg/dL; Potassium 4.7 mmol/L (3.5-5.1); Protein, Total 6.6 g/dL (6.4-8.2); Sodium Level 139 mmol/L (136-145); Triglycerides 130 mg/dL; Very Low Density Lipoprotein 26 mg/dL (5-40)
== END ==
LOC: OLS.SANC 05:00
PROVIDERS: Visit Provider Internal Medicine
DX: J44.9 Chronic obstructive pulmonary disease, unspecified (principal); E78.5 Hyperlipidemia, unspecified; E03.9 Hypothyroidism, unspecified
CPT/HCPCS: 36415; 80053; 80061; 85027

== ENCOUNTER → 2024-05-20 | Outpatient (REF) | payer MEDICARE, MEDICAID, SELFPAY | LOC: OLS.SANC 05:00 | PROVIDERS: Visit Provider Internal Medicine | DX: J44.9 Chronic obstructive pulmonary disease, unspecified (principal); E78.5 Hyperlipidemia, unspecified; E03.9 Hypothyroidism, unspecified | CPT/HCPCS: 36415; 84443 ==

== ENCOUNTER → 2024-06-10 | Outpatient (REF) | payer MEDICARE, MEDICAID, SELFPAY ==
[2024-06-10 10:04] LABS: Carbamazepine (Tegretol) 10.4 ug/mL (4.0-12.0)
== END ==
LOC: OLS.SANC 05:00
DX: Z79.899 Other long term (current) drug therapy (principal)
CPT/HCPCS: 36415; 80156

== ENCOUNTER → 2024-07-08 | Outpatient (REF) | payer MEDICARE, MEDICAID, SELFPAY ==
[2024-07-08 08:52] LABS: Hematocrit 41.4 % (37-47); Hemoglobin 13.6 g/dL (12.0-15.0); Mean Corp Hgb Conc 32.9 g/dL (32-36); Mean Corpuscular Hgb 31.2 pg (27.0-32.0); Mean Platelet Vol. 10.3 fl (6.2-12.0); Platelet Count 196 K/mm3 (150-450); RBC Distribution Width CV 13.2 % (11.6-14.6); RBC Distribution Width SD 46.4 fl (35.1-43.9); Red Blood Count 4.36 M/mm3 (4.2-5.4); White Blood Count 9.1 K/mm3 (4.4-11.0)
[2024-07-08 08:57] LABS: Anion Gap 3 (5-15); BUN 11 mg/dL (7-18); Calcium,Total 8.6 mg/dL (8.5-10.1); Chloride 108 mmol/L (98-107); Creatinine, Serum 0.79 mg/dL (0.55-1.02); EST Glomerular Filtration Rate 76 mL/min (>60); Est Glom Filt Rate - Afr Amer 92 mL/min (>60); Glucose 92 mg/dL (74-106); Potassium 4.1 mmol/L (3.5-5.1); Sodium Level 139 mmol/L (136-145)
== END ==
LOC: OLS.SANC 05:00
PROVIDERS: Visit Provider Internal Medicine
DX: Z79.899 Other long term (current) drug therapy (principal); J44.9 Chronic obstructive pulmonary disease, unspecified; E78.5 Hyperlipidemia, unspecified; E03.9 Hypothyroidism, unspecified
CPT/HCPCS: 36415; 80048; 85027

== ENCOUNTER → 2024-07-29 05:00 | Outpatient (REF) | payer MEDICARE, MEDICAID, SELFPAY ==
[2024-07-29 15:54] LABS: Vitamin D,25 Hydroxy 34.2 ng/mL
== END ==
LOC: OLS.SANC 05:00
PROVIDERS: Visit Provider Internal Medicine
DX: Z00.00 Encounter for general adult medical examination without abnormal findings (principal)
CPT/HCPCS: 36415; 82306

== ENCOUNTER → 2024-09-30 | Outpatient (REF) | payer MEDICARE, MEDICAID, SELFPAY ==
[2024-09-30 09:30] LABS: Hematocrit 36.4 % (37-47); Hemoglobin 11.3 g/dL (12.0-15.0); Mean Corpuscular Volume 96.6 fL (81-99); Mean Platelet Vol. 9.6 fl (6.2-12.0); Platelet Count 381 K/mm3 (150-450); RBC Distribution Width CV 12.9 % (11.6-14.6); RBC Distribution Width SD 46.2 fl (35.1-43.9); Red Blood Count 3.77 M/mm3 (4.2-5.4); White Blood Count 8.1 K/mm3 (4.4-11.0)
[2024-09-30 10:08] LABS: Anion Gap 6 (5-15); BUN 7 mg/dL (7-18); BUN/Creat Ratio 11.1 RATIO (10-20); Calcium,Total 9.1 mg/dL (8.5-10.1); Chloride 100 mmol/L (98-107); Creatinine, Serum 0.63 mg/dL (0.55-1.02); EST Glomerular Filtration Rate 98 mL/min (>60); Est Glom Filt Rate - Afr Amer 118 mL/min (>60); Glucose 111 mg/dL (74-106); Sodium Level 139 mmol/L (136-145)
== END ==
LOC: OLS.SANC 05:00
PROVIDERS: Visit Provider Internal Medicine
DX: J44.9 Chronic obstructive pulmonary disease, unspecified (principal); E78.5 Hyperlipidemia, unspecified
CPT/HCPCS: 36415; 80048; 85027

== ENCOUNTER → 2025-04-24 21:30 | Outpatient (REF) | payer MEDICARE, MEDICAID, SELFPAY ==
[2025-04-25 07:39] LABS: Mucous, Urine 0 SEEN /hpf (<or=2+); Squamous Epithelial Cells - UA 0 SEEN /hpf (5-10)
[2025-04-25 07:55] LABS: Color, Urine Yellow (Yellow); Glucose, Dipstick Normal (Normal); Ketone-Dipstick Negative (Negative); Leukocyte Esterase-Dipstick 500 /ul (Negative); Nitrite-Dipstick Negative (Negative); Occult Blood-Urine 10 /ul (Negative); Protein-Dipstick 30 mg/dl (Negative); Specific Gravity, Urine 1.025 (1.002-1.030); Urine Bilirubin Dipstick Negative (Negative)
[2025-04-25 08:09] LABS: Red Blood Cells-Urine 0-5 SEEN /hpf (0-5)
== END ==
LOC: OLS.SANC 21:30
DX: N39.0 Urinary tract infection, site not specified (principal)
CPT/HCPCS: 81001; 87077; 87086; 87088; 87186

== ENCOUNTER → 2025-05-09 | Outpatient (REF) | payer MEDICARE, MEDICAID, SELFPAY ==
[2025-05-09 08:29] LABS: Carbamazepine (Tegretol) 5.1 ug/mL (4.0-12.0)
== END ==
LOC: OLS.SANC 05:00
PROVIDERS: Visit Provider Internal Medicine
DX: E03.9 Hypothyroidism, unspecified (principal); Z79.899 Other long term (current) drug therapy
CPT/HCPCS: 36415; 80156; 84443

== ENCOUNTER → 2025-06-25 05:00 | Outpatient (REF) | payer MEDICARE, MEDICAID, SELFPAY ==
--- OUTSIDE RECORDS SUMMARY | 2025-06-25 04:14 | XMS RPT_ITS | CCD ---
Author Organization [facility] Care Team Providers Care Slagger Name Role Phone Kianna Izquierdo Primary Care Provider Unavaila ble Kianna Izquierdo Primary Care Unavailable BackerOsmin Attending Unavailable PROVIDER, UNKNOWN Referring Unavailable Kianna Izquierdo Primary Care Unavailable Backer, Osmin Attending Unavailable PROVIDER, UNKNOWN Referring Unavailable Marcus Connolly Attending Unavailable Kianna Izquierdo Primary Care Unavailable PROVIDER, UNKNOWN Referring Unavailable Kim Muhammad Attending Unavailable PROVIDER, UNKNOWN Referring Unavailable Kianna Izquierdo Primary Care Unavailable Kim Muhammad Attending Unavailable PROVIDER, UNKNOWN Referring Unavailable Kianna Izquierdo Primary Care Unavailable Kim Muhammad Attending Unavailable PROVIDER, UNKNOWN Referring Unavailable Kianna Izquierdo Primary Care Unavailable PROVIDER, UNKNOWN Referring Unavailable Kianna Izquierdo Primary Care Unavailable Nurys Leong Attending Unavailable Kianna Izquierdo MD Primary Care Provider Cayla Madrigal Attending Unavailable Kianna Izquierdo Referring Unavailable Kianna Izquierdo Primary Care Unavailable PROVIDER, UNKNOWN Primary Care Unavailable PROVIDER, UNKNOWN Referring Unavailable Kim Muhammad Attending Unavailable PROVIDER, UNKNOWN Primary Care Unavailable PROVIDER, UNKNOWN Referring Unavailable Jessika Collins Attending Unavailable AJAY FRY Attending Unavailable PROVIDER, UNKNOWN Primary Care Unavailable PROVIDER, UNKNOWN Referring Unavailable Kianna Izquierdo Primary Care Provider Kianna Izquierdo Unavailable Marky DALTON, Aaron Unavailable Diane Laureano MD, Almas Unavailable Kianna Izquierdo Primary Care Provider Kianna Izquierdo Unavailable Ria Longoria MD Primary Care Provider [phone] RIA LONGORIA Primary Care Unavailable LASHON SULLIVAN Admitting Unavailable DENNIS DAVIES Attending Unavailable Kianna Miranda Attending Provider Unavailab Kianna Garvin Unavailable OPAL ESPINOZA Attending Unavailable RIA LONGORIA Primary Care Unavailable OPAL ESPINOZA Attending Unavailable OPAL ESPINOZA Referring Unavailable RIA LONGORIA Primary Care Unavailable ALMAS LAUREANO Attending Unavailable ALMAS LAUREANO Referring Unavailable KIANNA IZQUIERDO Primary Care Unavailable Amaury Hou Attending Unavail able Ramon SALVADOR, Kianna Attending Unavailable Ramon SALVADOR, Kianna Attending Unavailable Kianna Miranda Attending Unavailable Ramon SALVADOR, Kianna Attending Unavailable Ramon SALVADOR, Kianna Attending Unavailable Ramon SALVADOR, Kianna Attending Unavailable Allergies Allergy Classification Reported Allergen(s) Allergy Type Date of Onset Reaction(s) Facility Acetaminophen (2 sources) Acetaminophen Drug Allergy 10-06-19 21 [facility] Aluminum aspirin (2 sources) Aluminum aspirin Drug Allergy 10-06-19 21 [facility] Butorphanol (2 sources) Butorphanol Drug Allergy 10-06-19 21 [facility] Opioid Agonists (6 sources) HYDROcodone Drug Allergy 10-06-19 21 [facility] Prochlorperazine (2 sources) Prochlorperazine Drug Allergy 10-06-19 21 [facility] Serotonin-1b and Serotonin-1d Receptor Agonists (2 sources) SUMAtriptan Drug Allergy 10-06-19 21 [facility] Sulfonamides (antibiotic) (2 sources) Sulfonamides (Antibiotic) Drug Allergy 10-06-19 21 [facility] (1 source) Acetaminophen Drug Allergy 10-06-19 21 [facility] Work Phone: (20 sources) Aluminum aspirin Drug Allergy 10-06-19 21 [facility] Work Phone: (19 sources) Butorphanol Drug Allergy 10-06-19 21 [facility] Work Phone: (17 sources) HYDROcodone Drug Allergy 10-06-19 21 [facility] Work Phone: (19 sources) HYDROmorphone Drug Allergy 10-06-19 21 Nausea [facility] Vom[facility] Work Phone: (12 sources) oxyCODONE Drug Allergy 10-06-19 21 N[facility]a [facility] Vom[facility] Work Phone: (19 sources) Prochlorperazine Drug Allergy 10-06-19 21 Nausea And Vomiting [facility] Work Phone: [phone] (7 sources) Sulfonamides (Antibiotic) Propensity to adverse reactions to drug 10-06-19 21 Nausea And Vomiting [facility] Work Phone: (20 sources) SUMAtriptan Drug Allergy 10-06-19 21 Nausea And Vomiting [facility] Work Phone: [phone] (3 sources) Other Propensity to adverse reactions 10-06-19 [employer] Work Phone: (20 sources) Ibuprofen Drug Allergy 09-11-18 99 Nausea And Vomiting [facility] (20 sources) Sulfamethoxazole / Trimethoprim Drug Allergy 12-01-19 21 Other (See Comments) [facility] (1 source) salicylamide Drug Allergy 05-30-20 22 Nausea And Vomiting [facility] Work Phone: (12 sources) salicylamide Drug Allergy 07-23-20 23 [facility] (5 sources) Sulfonamides (Antibiotic) Propensity to adverse reactions 09-23-19 25 [facility] NEGATED: Highlighted row has been ruled out! (5 sources) Other Propensity to adverse reactions 10-06-19 [employer] Work Phone: [phone] Medications Current Medications Medication Drug Class(es) Dates Sig (Normalized) Sig (Original) acetaminophen 325 mg / HYDROcodone bitartrate 5 mg oral tablet (1 source) Opioid Agonist Start: 01-18-2022 End: 01-25-2022 HYDROcodone-acetamin ophen (NORCO) 5-325 MG per tablet Indications: Status post reverse total replacement of left shoulder Take 1 tablet by mouth every 6 hours as needed for Pain for up to 7 days. Intended supply: 7 days. Take lowest dose possible to manage pain 28 tablet 0 01/18/2022 01/25/2022 Active acetaminophen 325 mg / oxyCODONE hydrochloride 5 mg oral tablet (4 sources) Opioid Agonist Start: 01-12-2023 End: 01-18-2023 take 1 tablet by mouth every six hours as needed for pain oxyCODONE-acetaminop hen (Percocet) 5-325 MG tablet Indications: Primary osteoarthritis of right knee Take 1 tablet by mouth every 6 hours as needed for severe pain (7-10) for up to 5 days. 15 tablet 0 01/13/2023 01/18/2023 Active albuterol 0.83 mg/ml inhalation solution (18 sources) beta2-Adrenergic Agonist Start: 05-31-2022 albuterol (PROVENTIL) nebulizer solution 1.25 mg Start: 01-18-2022 take 2 puff(s) by in halation four times daily 2 puff, Inhalation, 4 TIMES DAILY, First dose on Mon01/18/22 at 1700, Until Discontinued Initiate RT Bronchodilator Protocol: Yes End: 01-12-2023 take 2 puff(s) by inhalation every six hours as needed albuterol 108 (90 Base) MCG/ACT inhaler Inhale 2 puffs every 6 hours as needed. 0 01/12/2023 Discontinued (Therapy completed) albuterol sulfat e HFA (PROVENTIL;VENTOLIN;PROAIR) 108 (90 Base) MCG/ACT inhaler Inhale 2 puffs into the lungs in the morning and 2 puffs at noon and 2 puffs in the evening and 2 puffs before bedtime. 0 Active take 2 puff(s) by in halation every four hours as needed for wheezing albuterol sulfate HFA (VENTOLIN HFA) 108 (90 Base) MCG/ACT inhaler Inhale 2 puffs into the lungs every 4 hours as needed for Wheezing 0 Active take 2 puff(s) by in halation every four hours as needed for wheezing albuterol sulfate HFA (VENTOLIN HFA) 108 (90 Base) MCG/ACT inhaler Inhale 2 puffs into the lungs every 4 hours as needed for Wheezing 0 Active albuterol sulfate HFA 108 (90 Base) MCG/ACT inhaler 4 puff (1 source) Start: 11-17-2020 albuterol sulfate HFA 108 (90 Base) MCG/ACT inhaler 4 puff amitriptyline hydrochloride 100 mg oral tablet (3 sources) Tricyclic Antidepressant amitriptyline (ELAVIL) 100 MG tablet Take 25 mg by mouth nightly 0 Active bisacodyl (Dulcolax) 5 mg split suppository (10 sources) take 10 mg rectal route every twenty-four hours as needed bisacodyl (Dulcolax) 5 mg split suppository Insert 10 mg into the rectum Daily as needed. 0 Active take 10 mg rectal ro bhavik every twenty-four hours as needed bisacodyl (Dulcolax) 5 mg split suppository Insert 10 mg into the rectum Daily as needed. 0 Suspended 60 actuat budesonide 0.16 mg/actuat / formoterol fumarate 0.0045 mg/actuat metered dose inhaler (3 sources) Corticosteroid, beta2-Adrenergic Agonist take 1 puff(s) by inhalation twice daily budesonide-formoterol (SYMBICORT) 160-4.5 MCG/ACT AERO Inhale 1 puff into the lungs 2 times daily 0 Active cefadroxil 500 mg oral capsule (2 sources) Cephalosporin Antibacterial Start : 01-13 End: 01-20 take 1 capsule by mouth twice daily cefadroxil (Duricef) 500 MG capsule Take 1 capsule (500 mg) by mouth 2 times daily for 7 days. 14 capsule 0 01/13/2023 01/20/2023 Active cetirizine hydrochloride 10 mg oral tablet (5 sources) Histamine-1 Receptor Antagonist take 1 tablet by mouth once daily cetirizine (ZyrTEC) 10 MG tablet Take 10 mg by mouth daily. Active cholecalciferol 1.25 mg oral capsule (20 sources) Vitamin D take 1 capsule by mouth once cholecalciferol (Vitamin D-3) 1.25 MG (99461 UT) capsule Indications: Vitamin D Deficiency Take by mouth. Active take 1 tablet by mouth every we k cholecalciferol (Vitamin D3) 1.25 MG (27957 UT) tablet Take 50,000 Units by mouth 1 (one) time per week. Active cholecalciferol (Vitamin D-3) 1.25 MG (55321 UT) capsule Indications: Vitamin D Deficiency Take by mouth. 0 Active cholecalciferol (Vitamin D-3) 1.25 MG (53396 UT) capsule Take by mouth. 0 Active Cholecalciferol (VITAMIN D3) 1.25 MG (43056 UT) CAPS Take by mouth once a week 0 Active clopidogrel 75 mg oral tablet (20 sources) [id number] Platelet Inhibitor Start: 06-13-2021 End: 09-27-2024 take 1 tablet by mouth in the morning clopidogrel (Plavix) 75 MG tablet Indications: Cerebrovascular Accident Take 75 mg by mouth in the morning. 06/13/2021 Active dicyclomine hydrochloride 10 mg oral capsule (12 sources) Anticholinergic Start: 06-09-2021 End: 06-05-2022 dicyclomine (Bentyl) 10 MG capsule Take 10 mg by mouth. 0 06/09/2021 Active docusate sodium 100 mg oral capsule (7 sources) Start: 01-13-2023 End: 02-12-2023 take 1 capsule by mouth twice daily docusate sodium (Colace) 100 MG capsule Take 1 capsule (100 mg) by mouth 2 times daily. 60 capsule 0 01/13/2023 02/12/2023 Active doxycycline hyclate 100 mg oral tablet (1 source) Tetracycline-class Drug Start: 01-18-2022 End: 01-23-2022 take 1 tablet by mouth twice daily doxycycline hyclate (VIBRA-TABS) 100 MG tablet Take 1 tablet by mouth 2 times daily for 5 days 10 tablet 0 01/18/2022 01/23/2022 Active ergocalciferol 1.25 mg oral capsule (20 sources) Provitamin D2 Compound Start: 06-10-2022 take 1 capsule by mouth every week ergocalciferol (Vitamin D-2) 1.25 MG (64693 UT) capsule Take 50,000 Units by mouth 1 (one) time per week. 0 06/10/2022 Active Start: 06-10-2022 take 1 capsule by mo uth every week Ergocalciferol (VITAMIN D) 99246 units CAPS Take 50,000 Units by mouth once a week 5 capsule 0 06/10/2022 Active Start: 06-03-2022 vitamin D (ERG OCALCIFEROL) capsule 50,000 Units Start: 01-21-2022 take 29478 [IU] by m outh every week 50,000 Units, Oral, WEEKLY, First dose on Mon01/21/22 at 0900, Until Discontinued FLUoxetine 20 mg oral capsule (8 sources) Serotonin Reuptake Inhibitor Start: 06-07-2021 FLUoxetine (PROzac) 20 MG capsule take 1 capsule by mouth once gio ly FLUoxetine (PROZAC) 20 MG capsule Take 20 mg by mouth daily 0 Active 60 actuat fluticasone propionate 0.5 mg/actuat / salmeterol 0.05 mg/actuat dry powder inhaler (5 sources) Corticosteroid, beta2-Adrenergic Agonist Start: 03-31-2021 Fluticasone-Salmeterol 500-50 MCG/ACT aerosol powder 60 actuat formoterol fumarate 0.005 mg/actuat / mometasone furoate 0.2 mg/actuat metered dose inhaler (11 sources) Corticosteroid, beta2-Adrenergic Agonist Start: 01-07-2022 take 2 puff(s) by inhalation in the morning mometasone-formoterol (Dulera 200) 200-5 MCG/ACT inhaler Inhale 2 puffs in the morning and 2 puffs before bedtime. 0 01/07/2022 Active Start: 01-07-2022 take 2 puff(s) by in halation twice daily mometasone-formoterol (DULERA) 200-5 MCG/ACT inhaler Inhale 2 puffs into the lungs 2 times daily 0 01/07/2022 Active 1 ml hydrALAZINE hydrochloride 20 mg/ml injection (1 source) Arteriolar Vasodilator Start: 01-18-2022 hydrALAZINE (APRESOLINE) injection 5 mg lansoprazole (5 sources) Proton Pump Inhibitor Lansoprazole (PREVACID PO) Take by mouth 0 Active lidocaine 0.04 mg/mg medicated patch (2 sources) Antiarrhythmic, Amide Local Anesthetic Start: 01-07-2022 apply 1 dose transdermal route once daily lidocaine 4 % external patch Place 1 patch onto the skin daily 0 01/07/2022 Active apply 1 dose transde rmal route once daily as needed for pain Lidocaine HCl 4 % PTCH Apply 1 patch topically daily as needed (pain) 0 Active loperamide hydrochloride 2 mg oral capsule (20 sources) Opioid Agonist Start: 09-26-2024 End: 10-06-2024 take 1 capsule by mouth four times daily as needed for diarrhea loperamide (Imodium) 2 MG capsule Take 1 capsule (2 mg) by mouth 4 times daily as needed for diarrhea for up to 10 days. 09/26/2024 10/06/2024 Active Start: 01-18-2022 End: 06-05-2022 take 2 mg by mouth every four hours as needed 2 mg, Oral, EVERY 4 HOURS PRN, Starting on Mon01/18/22 at 1544, Until Discontinued, Diarrhea After each loose stool. magnesium hydroxide 80 mg/ml oral suspension (14 sources) magnesium hydrox mir (Milk of Magnesia) 400 MG/5ML suspension Take by mouth Daily as needed for constipation. 0 Active methocarbamol 500 mg oral tablet (2 sources) Muscle Relaxant Start: 2 End: 2 methocarbamol (ROBAXIN) tablet 500 mg 1 ml morphine sulfate 4 mg/ml injection (1 source) Opioid Agonist Start: 2 take 2 mg by mouth every two hours as needed 2 mg, IntraVENous, EVERY 2 HOURS PRN, Starting on Mon01/19/22 at 0002, Until Discontinued, Pain Severe (7-10) If oral and IV narcotics ordered, use oral first and only use IV if oral is ineffective or cannot take oral. Do Not give oral and IV within 1 hour of each other unless specifically ordered. Multiple Vitamin (multivitamin) tablet (20 sources) take 1 tablet by mouth once daily Multiple Vitamin (multivitamin) tablet Indications: Vitamin Deficiency Take 1 tablet by mouth daily. Active take 1 tablet by mouth once nicolas y Multiple Vitamin (multivitamin) tablet Indications: Vitamin Deficiency Take 1 tablet by mouth daily. 0 Active take 1 tablet by mouth once nicolas y Multiple Vitamin (multivitamin) tablet Take 1 tablet by mouth daily. 0 Active take 1 tablet by mouth once nicolas y Multiple Vitamin (multivitamin) tablet Take 1 tablet by mouth daily. 0 Suspended 1 ml naloxone hydrochloride 0.4 mg/ml injection (1 source) Opioid Antagonist Start: 05-31-2022 naloxone (NA RCAN) injection 0.4 mg ondansetron (ZOFRAN-ODT) disintegrating tablet 4 mg (2 sources) Start: 05-30-2022 ondansetron (ZOFRAN-ODT) disintegrating tablet 4 mg Start: 01-18-2022 ondansetron (Z OFRAN-ODT) disintegrating tablet 4 mg orphenadrine citrate 100 mg oral tablet (10 sources) Muscle Relaxant take 100 mg by mouth three times daily ORPHENADRINE CITRATE PO Take 100 mg by mouth 3 times daily. 0 Active oxyCODONE hydrochloride 5 mg oral tablet (7 sources) Opioid Agonist Start: 02-08-2023 End: 02-15-2023 take 1 tablet by mouth every six hours as needed for pain oxyCODONE (Roxicodone) 5 MG immediate release tablet Indications: S/P total knee arthroplasty, right Take 1 tablet (5 mg) by mouth every 6 hours as needed for severe pain (7-10) or moderate pain (4-6) for up to 7 days. Take as needed every 6 hours as needed for pain. Continue to wean off as pain becomes more tolerable. 28 tablet 0 02/08/2023 02/15/2023 Active Start: 01-12-2023 End: 01-13-2023 take 1 tablet by mouth every four hours as needed for pain oxyCODONE (Roxicodone) immediate release tablet 5 mg Start: 06-05-2022 End: 06-12-2022 take 1 tablet by mouth every six hours as needed for pain oxyCODONE (ROXICODONE) 5 MG immediate release tablet Indications: Acute traumatic pain Take 1 tablet by mouth every 6 hours as needed for Pain for up to 7 days. 28 tablet 0 06/05/2022 06/12/2022 Active Start: 05-31-2022 oxyCODONE (TALYA ICODONE) immediate release tablet 2.5 mg pantoprazole 40 mg delayed release oral tablet (20 sources) Proton Pump Inhibitor Start: 06-07-2021 End: 09-27-2024 take 1 tablet by mouth in the morning pantoprazole (ProtoNix) 40 MG EC tablet Indications: Dyspepsia Take 40 mg by mouth in the morning and 40 mg in the evening. 06/07/2021 Active take 2 tablets by mouth twice da britany pantoprazole (ProtoNix) 20 MG EC tablet Take 40 mg by mouth 2 times daily. Do not crush, chew, or split. Active pravastatin sodium 40 mg oral tablet (20 sources) HMG-CoA Reductase Inhibitor Start: 05-19-2021 End: 09-27-2024 take 1 tablet by mouth in the morning pravastatin (Pravachol) 40 MG tablet Indications: Atherosclerotic Disease Take 40 mg by mouth in the morning. 05/19/2021 Active predniSONE 20 mg oral tablet (5 sources) Start: 12-14-2020 predniSONE (Deltasone) 20 MG tablet pregabalin 150 mg oral capsule (20 sources) Start: 09-24-2024 End: 09-27-2024 take 150 mg by mouth twice daily 150 mg, Oral, 2 times daily, First dose on Mon09/24/24 at 2100 Start: 01-12-2023 End: 01-13-2023 take 150 mg by mouth twice daily 150 mg, Oral, 2 times daily, First dose on Fariha 01/12/23 at 2100 Start: 05-30-2022 take 150 mg by mouth twice daily 150 mg, Oral, 2 TIMES DAILY, First dose on Mon05/30/22 at 1345, Until Discontinued Start: 01-18-2022 take 150 mg by mouth twice daily 150 mg, Oral, 2 TIMES DAILY, First dose on Mon01/18/22 at 2100, Until Discontinued Start: 06-18-2021 End: 10-04-2024 take 1 capsule by mouth in the morning pregabalin (Lyrica) 150 MG capsule Indications: Fibromyalgia Syndrome Take 150 mg by mouth in the morning and 150 mg before bedtime. 06/18/2021 Active QUEtiapine 25 mg oral tablet (4 sources) Atypical Antipsychotic Start: 07-25-2023 End: 09-27-2024 take 1 tablet by mouth twice daily as needed for anxiety QUEtiapine (SEROquel) 25 MG tablet Indications: Agitation Take 1 tablet (25 mg) by mouth 2 times daily as needed (anxiety). 0 07/25/2023 Active sennosides, alf 8.6 mg oral tablet (1 source) Start: 05-30-2022 senna (SENOKOT ) tablet 8.6 mg tiZANidine 2 mg oral tablet (17 sources) Central alpha-2 Adrenergic Agonist Start: 07-25-2023 take 1 tablet by mouth twice daily tiZANidine (Zanaflex) 2 MG tablet Indications: Muscle Spasticity Take 1 tablet (2 mg) by mouth 2 times daily. 07/25/2023 Active Start: 06-12-2021 tiZANidine (Za naflex) 2 MG tablet End: 09-27-2024 take 1 capsule by mouth twice daily tiZANidine (Zanaflex) 2 MG capsule Take 2 mg by mouth 2 times daily. 09/27/2024 Discontinued (Stop taking at discharge) traMADol hydrochloride 50 mg oral tablet (20 sources) Opioid Agonist Start: 07-25-2023 take 2 tablets by mouth every eight hours as needed for pain traMADol (Ultram) 50 MG tablet Indications: Pain Take 2 tablets (100 mg) by mouth every 8 hours as needed for severe pain (7-10). 07/25/2023 Active Start: 02-08-2023 End: 02-15-2023 take 1 tablet by mouth every six hours as needed for pain traMADol (Ultram) 50 MG tablet Indications: S/P total knee arthroplasty, right Take 1 tablet (50 mg) by mouth every 6 hours as needed for severe pain (7-10) for up to 7 days. 28 tablet 0 02/08/2023 02/15/2023 Active Start: 03-03-2022 End: 03-10-2022 take 1 tablet by mouth every eight hours as needed for pain traMADol (ULTRAM) 50 MG tablet Indications: Glenohumeral arthritis, left , S/P reverse total shoulder arthroplasty, left Take 1 tablet by mouth every 8 hours as needed for Pain for up to 7 days. 21 tablet 0 03/03/2022 03/10/2022 Active Start: 05-28-2021 End: 01-13-2023 take 1 tablet by mouth every six hours 50 mg, Oral, Every 6 hours, First dose on Fariha 01/12/23 at 1530, Phase II/On Unit Patient may refuse medication if they feel they do not need it. End: 09-27-2024 take 2 tablets by mouth every eight hours as needed traMADol (Ultram) 50 MG tablet Take 100 mg by mouth every 8 hours as needed (pain 3-10 out of 10). 09/27/2024 Discontinued (Stop taking at discharge) take 1 tablet by [facility] every eight hours as needed for pain traMADol (ULTRAM) 50 MG tablet Take 50 mg by mouth every 8 hours as needed for Pain. 0 Active traZODone hydrochloride 50 mg oral tablet (20 sources) Serotonin Reuptake Inhibitor Start: 07-25-2023 take 2 tablets by mouth once daily traZODone (Desyrel) 50 MG tablet Indications: Insomnia Take 2 tablets (100 mg) by mouth Nightly. 07/25/2023 Active Start: 06-18-2021 End: 01-13-2023 take 1 tablet by mouth once daily traZODone (Desyrel) 50 MG tablet Take 50 mg by mouth Nightly. 0 06/18/2021 Active End: 09-27-2024 take 1 tablet by mouth once daily traZODone (Desyrel) 150 MG tablet Take 150 mg by mouth Nightly. 09/27/2024 Discontinued (Stop taking at discharge) ubrogepant 50 mg oral tablet (1 source) Start: 01-18-2022 take 1 capsule by mouth once daily as needed for headache 1 capsule, Oral, DAILY PRN, headache, Starting on Mon01/18/22 at 1545 Ubrogepant (UBRELVY PO) (5 sources) Ubrogepant (UBRELVY PO) Take by mouth 0 Active 24 hr venlafaxine 75 mg extended release oral tablet (20 sources) Serotonin and Norepinephrine Reuptake Inhibitor Start: 07-25-2023 take 1 tablet by mouth once daily venlafaxine XR (Effexor XR) 75 MG 24 hr tablet Indications: Major Depressive Disorder Take 1 tablet (75 mg) by mouth daily. 07/25/2023 Active Start: 01-12-2023 End: 01-13-2023 take 75 mg by mouth once daily 75 mg, Oral, Daily, Fir st dose on Fariha 01/12/23 at 1700 Do not crush or chew. Start: 06-01-2022 venlafaxine (E FFEXOR XR) extended release capsule 37.5 mg Start: 05-30-2022 End: 05-31-2022 take 75 mg by mouth once daily 75 mg, Oral, DAILY, Fir st dose on 05/30/22 at 1330, Until Discontinued Do not crush or break. Start: 01-08-2022 take 1 capsule by mo uth once daily venlafaxine (EFFEXOR XR) 37.5 MG extended release capsule Take 1 capsule by mouth daily 30 capsule 3 01/08/2022 Active End: 09-27-2024 venlafaxine (Effexor) 75 MG tablet Take 37.5 mg by mouth daily. 09/27/2024 Discontinued (Stop taking at discharge) take 1 tablet by jayla th every twenty-four hours in the morning venlafaxine XR (Effexor XR) 75 MG 24 hr tablet Take 37.5 mg by mouth in the morning. 0 Active venlafaxine 75 M G extended release tablet Take 37.5 mg by mouth daily 0 Active Completed/Discontinued Medications Medication Drug Class(es) Dates Sig (Normalized) Sig (Original) Acetaminophen (20 sources) Start: 09-23-2024 End: 09-27-2024 take 1 tablet by mouth every six hours as needed for pain and fever acetaminophen (Tylenol) tablet 650 mg Start: 01-12-2023 End: 01-12-2023 acetaminophen (Tylenol) tabl et 1,000 mg Start: 05-30-2022 acetaminophen (TYLENOL) tablet 1,000 mg Start: 01-18-2022 take 650 mg by mouth every six hours as needed, then take 4000 mg by mouth every twenty-four hours as needed 650 mg, Oral, EVERY 6 HOURS PRN, Starting on Mon01/18/22 at 1543, Until Discontinued, Pain Mild (1-3), Fever Maximum dose of acetaminophen is 4000 mg from all sources in 24 hours. Start: 01-18-2022 End: 01-18-2022 acetaminophen (TYLENOL) tabl et 1,000 mg End: 01-13-2023 acetaminophen (Tylenol) 325 MG tablet Take 650 mg by mouth. 0 01/13/2023 Discontinued (Stop taking at discharge) albuterol 0.833 mg/ml / ipratropium bromide 0.167 mg/ml inhalation solution (2 sources) Anticholinergic, beta2-Adrenergic Agonist Start: 09-23-2024 End: 09-27-2024 3 mL, Nebulization, 3 times daily, First dose on Mon09/23/24 at 2000 ALPRAZolam 0.25 mg disintegrating oral tablet (2 sources) Benzodiazepine Start: 01-12-2023 End: 01-12-2023 ALPRAZolam (Xanax) disintegrating tablet 0.25 mg amoxicillin 875 mg / clavulanate 125 mg oral tablet (6 sources) Penicillin-class Antibacterial Start: 09-26-2024 End: 09-29-2024 take 1 tablet by mouth every twelve hours amoxicillin-clavul anate (Augmentin) 875-125 MG tablet Take 1 tablet by mouth every 12 hours for 1 day. 09/27/2024 09/27/2024 Discontinued azithromycin 250 mg oral tablet (2 sources) Macrolide Antimicrobial Start: 09-24-2024 End: 02-11-2025 take 1 capsule by mouth once daily 500 mg, Oral, Daily, First dose on Mon09/24/24 at 0900, Suspected Indication (Select all that apply): Pneumonia (CAP) azithromycin (Zithromax) 500 mg in sodium chloride 0.9 % 250 mL IVPB ([facility]) (2 sources) Start: 09-23-2024 End: 09-23-2024 500 mg, IntraVENous, Administer over 60 Minutes, Once, On Mon09/23/24 at 1135, For 1 dose, [facility] bag, Suspected Indication (Select all that apply): Pneumonia (CAP) biotin 10 mg oral tablet (20 sources) End: 09-27-2024 take 1 tablet by mouth once daily biotin 10 MG tablet Take 10 mg by mouth daily. 09/27/2024 Discontinued (Stop taking at discharge) biotin 1000 MCG tablet Take 10 mg by mouth. 0 Active take 1 tablet by mouth in the mo rning biotin 1000 MCG tablet Take 1,000 mcg by mouth in the morning. 0 Active bisacodyl 5 mg delayed release oral tablet (20 sources) Stimulant Laxative Start: 01-18-2022 End: 01-13-2023 take 1 tablet by mouth every twenty-four hours as needed for constipation 5 mg, Oral, Daily PRN, constipation, Starting on Mon01/12/23 at 1529, Phase II/On Unit 1st line for treatment of constipation - give scheduled if no bowel movement in past 24 hours. Do not crush, chew, or split. End: 05-31-2022 take 10 mg rectal route once daily as needed for constipation bisacodyl (DULCOLAX) [address] 10 mg rectally daily as needed for Constipation 0 Active busPIRone hydrochloride 10 mg oral tablet (20 sources) Start: 09-24-2024 End: 09-27-2024 take 10 mg by mouth three times daily 10 mg, Oral, 3 times daily, First dose on Mon09/24/24 at 1400 Start: 01-18-2022 End: 01-13-2023 take 10 mg by mouth three times daily 10 mg, Oral, 3 times daily, First dose on Mon01/12/23 at 1700 calcium chloride 0.0014 meq/ ml / potassium chloride 0.004 meq/ml / sodium chloride 0.103 meq/ml / sodium lactate 0.028 meq/ml injectable solution (8 sources) Start: 01-12-2023 End: 01-13-2023 lactated Ringer's infusion Start: 05-31-2022 End: 06-02-2022 lactated ringers infusion Start: 01-18-2022 End: 01-18-2022 lactated ringers infusion carBAMazepine 200 mg oral tablet (20 sources) Mood Stabilizer Start: 05-30-2022 End: 05-31-2022 take 200 mg by mouth twice daily 200 mg, Oral, 2 TIMES DAILY, First dose on Mon05/30/22 at 1330, Until Discontinued Do not crush or break. Start: 06-02-2021 End: 09-27-2024 carBAMazepine (TEGretol) 200 MG tablet Indications: Depressive Phase Bipolar Mood Disorder Take 1 tablet by mouth in the morning and 1 tablet at noon and 1 tablet before bedtime. 06/02/2021 Active End: 05-31-2022 take 1 capsule by mouth three times daily at mealtime carBAMazepine (CARBATROL) 200 MG extended release capsule Take 200 mg by mouth 3 times daily (with meals) 0 05/31/2022 Discontinued (ERROR) take 1 tablet by jayla th three times daily at mealtime carBAMazepine (TEGRETOL XR) 200 MG extended release tablet Take 200 mg by mouth 3 times daily (with meals) 0 Active ceFAZolin 2000 mg injection (5 sources) Cephalosporin Antibacterial Start: 01-12-2023 End: 01-12-2023 ceFAZolin in dextrose 4% (Ancef) IVPB 2,000 mg Start: 06-01-2022 End: 06-02-2022 2,000 mg, IntraVENous, EVERY 8 HOURS, 2 doses, First dose (after last modification) on Mon06/01/22 at 1830, Last dose on Mon06/02/22 at 0230 Antimicrobial Indications: Surgical Prophylaxis Start: 01-18-2022 End: 01-18-2022 2,000 mg, IntraVENous, EVERY 8 HOURS, 2 doses, First dose on Mon01/18/22 at 1345, Last dose on Mon01/18/22 at 1600 Antimicrobial Indications: Surgical Prophylaxis Post-op Start: 01-18-2022 End: 01-18-2022 ceFAZolin (ANCEF) 2000 mg in dextrose 4 % 100 mL IVPB (premix) ceFAZolin Sodium 2,000 mg in sodium chloride 0.9 % 100 mL IVPB (2 sources) Start: 01-12-2023 End: 01-13-2023 take 2000 mg intravenously every eight hours 2,000 mg, IntraVENous, at 200 mL/hr, Administer over 30 Minutes, Every 8 hours, First dose on Mon01/12/23 at 1900, For 2 doses, Phase II/On Unit Mini-Bag Plus bag Suspected Indication (Select all that apply): Surgical Prophylaxis cefdinir 300 mg oral capsule (2 sources) Cephalosporin Antibacterial Start: 09-25-2024 End: 09-26-2024 take 1 capsule by mouth twice daily cefdinir (Omnicef) 300 MG capsule Take 1 capsule (300 mg) by mouth 2 times daily for 3 days. 09/25/2024 09/26/2024 Discontinued (Stop taking at discharge) cefTRIAXone (Rocephin) 1,000 mg in sodium chloride 0.9 % 50 mL IVPB Mini-Bag Plus (4 sources) Start: 09-24-2024 End: 09-26-2024 1,000 mg, IntraVENous, at 100 mL/hr, Administer over 30 Minutes, Every 24 hours, First dose on Mon09/24/24 at 1200, Mini-Bag Plus bag, Suspected Indication (Select all that apply): Pneumonia (CAP) Start: 09-23-2024 End: 09-23-2024 1,000 mg, IntraVENous, at 10 0 mL/hr, Administer over 30 Minutes, Once, On Mon09/23/24 at 1135, For 1 dose, Mini-Bag Plus bag, Suspected Indication (Select all that apply): Pneumonia (CAP) dexamethasone 4 mg oral tablet (3 sources) Corticosteroid Start: 01-12-2023 End: 01-13-2023 take 1 dose by mouth four times daily 8 mg, Oral, Every 6 hours scheduled (4 times per day), First dose on Mon01/12/23 at 1700, For 2 doses, Phase II/On Unit Start: 01-12-2023 End: 01-12-2023 dexAMETHasone (Decadron) inj ection [id number]-qabaynafhsv-rd inephrine (TAP) syringe (1 source) Start: 01-12-2023 End: 01-12-2023 bixGRKOLflwcr-uojxpyrhive-jc inephrine (TAP) syringe diphenhydrAMINE (BENADryl) tablet/capsule 25 mg (2 sources) Start: 01-12-2023 End: 01-13-2023 t a k e 1 t a b l e t b y m o u t h e v e r y s i x h o u r s a s n e e d e d diphenhydrAMINE (BENADryl) tablet/capsule 25 mg docusate sodium 50 mg / elizabeth osides, alf 8.6 mg oral tablet (2 sources) Start: 09-23-2024 End: 09-27-2024 t a k e 2 t a b l e t s b y m o u t h o n c e d a i l y 2 tablet, Oral, Daily, First dose on Mon09/23/24 at 1600 0.4 ml enoxaparin sodium 100 mg/ml prefilled syringe (13 sources) L o w M o l e c u l a r W e i g h t H e p a r i n Start: 09-23-2024 End: 09-27-2024 i n j e c t 4 0 m g b y s u b c u t a n e o u s i n j e c t i o n e v e r y t w e n t y - f o u r h o u r s 40 mg, SubCUTAneous, Every 24 hours, First dose on Mon09/23/24 at 1600, Indication of Use: Prophylaxis-DVT/PE Start: 01-13-2023 End: 01-13-2023 inject 40 mg by subcutaneous injection once daily 40 mg, SubCUTAneous, Daily, First dose on Mon01/13/23 at 0900, For 15 days, Phase II/On Unit Begin morning of POD 1 Indication of Use: Prophylaxis-DVT/PE Indications: Prophylaxis of Venous Thromboembolism Start: 01-12-2023 End: 01-28-2023 inject 0.4 mL by subcutaneous injection once daily enoxaparin (Lovenox) 40 MG/0.4ML solution prefilled syringe Inject 0.4 mL (40 mg) under the skin daily for 15 days. 15 each 0 01/13/2023 01/28/2023 Active Start: 06-05-2022 enoxaparin Sod ium (LOVENOX) 30 MG/0.3ML injection Inject 0.3 mLs into the skin 2 times daily 0 06/05/2022 Active Start: 06-01-2022 enoxaparin Sod ium (LOVENOX) injection 30 mg famotidine 20 mg oral tablet (5 sources) Histamine-2 Receptor Antagonist Start: 01-12-2023 End: 01-13-2023 take 20 mg by mouth twice daily 20 mg, Oral, 2 times daily, First dose on Mon01/12/23 at 2100, Phase II/On Unit Start: 01-18-2022 End: 01-18-2022 famotidine (PEPCID) tablet 2 0 mg fludrocortisone acetate 0.1 mg oral tablet (20 sources) Start: 09-23-2024 End: 09-27-2024 take 0.1 mg by mouth once daily 0.1 mg, Oral, Daily, First dose on Mon09/23/24 at 1700 Start: 01-12-2023 End: 01-13-2023 take 0.1 mg by mouth once daily 0.1 mg, Oral, Daily, First dose on Mon01/12/23 at 1700 Start: 05-30-2022 take 0.1 mg by mouth once daily 0.1 mg, Oral, DAILY, First dose on Mon05/30/22 at 1330, Until Discontinued Start: 01-07-2022 End: 02-06-2022 take 0.1 mg by mouth once daily 0.1 mg, Oral, DAILY, First dose on Mon01/18/22 at 1615, Until Discontinued folic acid 1 mg oral tablet (7 sources) Start: 09-23-2024 End: 09-27-2024 take 1 mg by mouth once daily 1 mg, Oral, Daily, First dose on Mon09/23/24 at 1700 12 hr guaiFENesin 600 mg extended release oral tablet (7 sources) Start: 09-23-2024 End: 09-27-2024 take 600 mg by mouth twice daily 600 mg, Oral, 2 times daily, First dose on Mon09/23/24 at 2100, Administer with plenty of fluids to ensure proper action. Do not crush, chew, or split. 1 ml HYDROmorphone hydrochloride 1 mg/ml cartridge (4 sources) Opioid Agonist Start: 01-12-2023 End: 01-12-2023 HYDROmorphone (Dilaudid) injection 0.5 mg Start: 05-31-2022 End: 05-31-2022 HYDROmorphone (DILAUDID) inj ection 0.5 mg Start: 01-18-2022 End: 01-18-2022 HYDROmorphone (DILAUDID) inj ection 0.5 mg HYDROmorphone (Dilaudid) injection 0.25 mg (2 sources) Start: 01-12-2023 End: 01-13-2023 HYDROmorphone (Dilaudid) injection 0.25 mg hydrOXYzine pamoate 25 mg oral capsule (12 sources) Antihistamine End: 09-27-2024 take 1 capsule by mouth twice daily hydrOXYzine pamoate (Vistaril) 25 MG capsule Indications: Anxiety Take 25 mg by mouth 2 times daily. 09/27/2024 Discontinued (Stop taking at discharge) take 1 tablet by jayla every eight hours as needed hydrOXYzine HCl (Atarax) 25 MG tablet Ta ke 25 mg by mouth every 8 hours as needed for itching. 0 Active ibuprofen 200 mg oral tablet (2 sources) Nonsteroidal Anti-inflammatory Drug Start: 09-24-2024 End: 09-24-2024 take 400 mg by mouth once 400 mg, Oral, Once, On Mon09/24/24 at 0700, For 1 dose isopropyl alcohol 0.7 ml/ml medicated pad (2 sources) Start: 01-12-2023 End: 01-12-2023 Nozin Nasal Gi Asst Popswab 2 Swab levothyroxine sodium 0.075 mg oral tablet (20 sources) l-Thyroxine Start: 09-24-2024 End: 09-27-2024 take 75 ug by mouth once daily before breakfast 75 mcg, Oral, Daily before breakfast, First dose on Mon09/24/24 at 0600 Start: 05-30-2022 take 150 ug by mouth once nicolas y 150 mcg, Oral, DAILY, First dose on Mon05/30/22 at 1330, Until Discontinued Tube feeding (TF) interaction, obtain physician order to manage, recommend holding TF for 30 minutes before and after dose. Start: 01-18-2022 take 175 ug by mouth once nicolas y 175 mcg, Oral, DAILY, First dose on Mon01/18/22 at 1615, Until Discontinued Tube feeding (TF) interaction, obtain physician order to manage, recommend holding TF for 30 minutes before and after dose. Start: 01-13-2022 take 1 tablet by jayla th once daily levothyroxine (SYNTHROID) 175 MCG tablet Take 1 tablet by mouth Daily Consider holding Biotin for 1 week and rechecking level 30 tablet 3 01/13/2022 Active Start: 03-31-2021 End: 01-13-2023 take 1 tablet by mouth in the morning levothyroxine (Synthroid, Levoxyl) 150 MCG tablet Indications: Hypothyroidism Take 150 mcg by mouth in the morning. 03/31/2021 Active take 1 tablet by jayla th once daily before breakfast levothyroxine (Synthroid, Levoxyl) 88 MCG tablet Take 88 mcg by mouth every morning (before breakfast). Active levothyroxine (S YNTHROID) 125 MCG tablet Take 175 mcg by mouth Daily 0 Active 50 ml magnesium sulfate 40 mg/ml injection (2 sources) Start: 09-25-2024 End: 09-25-2024 2,000 mg, IntraVENous, at 25 mL/hr, Administer over 2 Hours, Once, On Mon09/25/24 at 0930, For 1 dose, Recommended infusion rate not to exceed 1,000 mg (milligrams) per hour. meclizine hydrochloride 25 mg oral tablet (2 sources) Antiemetic End: 09-27-2024 meclizine (Antivert) 25 MG tablet Take 12.5 mg by mouth every 8 hours as needed for dizziness. 09/27/2024 Discontinued (Stop taking at discharge) melatonin 10 mg oral capsule (20 sources) Start: 01-12-2023 End: 01-13-2023 take 10 mg by mouth once daily 10 mg, Oral, Nightly, First dose on Mon01/12/23 at 2100 Start: 05-30-2022 take 5 mg by mouth once daily 5 mg, Oral, DAILY, First dose on 05/30/22 at 1330, Until Discontinued take 1 tablet by jayla th once daily melatonin 10 MG tablet Indications: insomnia Take 10 mg by mouth Nightly. Active take 10 mg by mouth at bedtime G EDUCATION ADVISER MELATONIN PO Take 10 mg by mouth at bedtime 0 Active take 2 tablets by mo uth once daily melatonin 3 MG TABS tablet Take 3 mg by mouth daily 2 tabs daily 0 Active 20 ml mepivacaine hydrochloride 20 mg/ml injection (1 source) Amide Local Anesthetic Start: 01-12-2023 End: 01-12-2023 mepivacaine PF (Carbocaine) 2 % injection 2 ml metoclopramide 5 mg/ml prefilled syringe (16 sources) Dopamine-2 Receptor Antagonist Start: 05-31-2022 End: 06-03-2022 metoclopramide (REGLAN) injection 5 mg Start: 05-30-2022 End: 05-31-2022 metoclopramide (REGLAN) inje ction 10 mg Start: 05-30-2022 End: 05-31-2022 take 5 mg by mouth twice daily 5 mg, Oral, 2 times daily, First dose on Mon05/30/22 at 1345, Until Discontinued Start: 01-18-2022 metoclopramide (REGLAN) injection 10 mg Start: 06-14-2021 End: 06-05-2022 metoclopramide (Reglan) 5 MG tablet Take 5 mg by mouth. 0 06/14/2021 Active 2 ml midazolam 1 mg/ml injection (1 source) Benzodiazepine Start: 01-12-2023 End: 01-12-2023 midazolam (Versed) injection midodrine hydrochloride 5 mg oral tablet (20 sources) alpha-Adrenergic Agonist Start: 01-12-2023 End: 09-27-2024 take 5 mg by mouth three times daily 5 mg, Oral, 3 times daily, First dose on Mon01/12/23 at 1700 Start: 05-30-2022 5 mg, Oral, 3 TIMES DAILY, First dose on Mon05/30/22 at 1400, Until Discontinued Do not give after 1800 or within 4 hrs of bedtime. Start: 01-18-2022 5 mg, Oral, 3 TIMES DAILY, First dose on Mon01/18/22 at 1800, Until Discontinued Do not give after 1800 or within 4 hrs of bedtime. mirtazapine 15 mg oral tablet (14 sources) Start: 01-12-2023 End: 01-13-2023 take 15 mg by mouth once daily 15 mg, Oral, Daily, First dose on Mon01/12/23 at 1700 ondansetron 4 mg oral tablet (20 sources) Serotonin-3 Receptor Antagonist Start: 01-18-2022 take 4 mg by mouth every six hours as needed 4 mg, Oral, EVERY 6 HOURS PRN, Starting on Mon01/18/22 at 1544, Until Discontinued, Nausea, Vomiting take 1 tablet by jayla th every six hours as needed for nausea ondansetron (ZOFRAN-ODT) 4 MG disintegra ting tablet Take 4 mg by mouth every 6 hours as needed for Nausea or Vomiting 0 Active take 1 tablet by jayla th every twelve hours as needed for nausea ondansetron (ZOFRAN) 4 MG tablet Take 4 mg by mouth every 12 hours as needed for Nausea or Vomiting 0 Active ondansetron ODT (Zofran-ODT) disintegrating tablet 4 mg (4 sources) Start: 09-23-2024 End: 09-27-2024 take 1 tablet by mouth every eight hours as needed for nausea and vomiting ondansetron ODT (Zofran-ODT) disintegrating tablet 4 mg Start: 01-12-2023 End: 01-13-2023 take 1 tablet by mouth every eight hours as needed for nausea and vomiting ondansetron ODT (Zofran-ODT) disintegrating tablet 4 mg Phenylephrine HCl (Pressors) 1 MG/10ML injection (1 source) Start: 01-12-2023 End: 01-12-2023 Phenylephrine HCl (Pressors) 1 MG/10ML injection polyethylene glycol [id number] mg powder for oral solution (3 sources) Osmotic Laxative Start: 09-23-2024 End: 09-27-2024 take 17 g by mouth every twenty-four hours as needed for constipation Start: 05-30-2022 polyethylene g lycol (GLYCOLAX) packet 17 g microencapsulated potassium chloride 10 meq extended release oral tablet (6 sources) Start: 09-24-2024 End: 09-25-2024 40 mEq, Oral, Once, On Mon09/25/24 at 1300, For 1 dose, Best given with food and plenty of water to minimize gastric irritation. Do not crush or chew. End: 09-27-2024 potassium chloride ER (Micro -K) 10 MEQ ER capsule Take 40 mEq by mouth 2 times daily. Do not crush or chew. 09/27/2024 Discontinued (Stop taking at discharge) 100 ml propofol 10 mg/ml injection (1 source) General Anesthetic Start: 01-12-2023 End: 01-12-2023 propofol (Diprivan) infusion risperiDONE 0.5 mg oral tablet (20 sources) Atypical Antipsychotic Start: 09-24-2024 End: 09-27-2024 0.5 mg, Oral, 2 times daily, First dose on Mon09/24/24 at 2100, Indications: bipolar one disorder Start: 05-30-2022 take 0.5 mg by mouth twice daily 0.5 mg, Oral, 2 TIMES DAILY, First dose on Mon05/30/22 at 1330, Until Discontinued Start: 07-17-2021 End: 01-13-2023 take 0.5 mg by mouth twice daily 0.5 mg, Oral, 2 times daily, First dose on Fariha 01/12/23 at 2100 Start: 07-17-2021 risperiDONE (R isperDAL) 0.5 MG tablet Take 0.5 mg by mouth. 0 07/17/2021 Active take 1 tablet by jayla th twice daily risperiDONE (RISPERDAL) 2 MG tablet Take 2 mg by mouth 2 times daily 0 Active 200 ml ropivacaine hydrochloride 2 mg/ml injection (2 sources) Amide Local Anesthetic Start: 01-12-2023 End: 01-13-2023 ropivacaine (Naropin) 0.2 % elastomeric infusion 500 mL ropivacaine (Naropin) 5 MG/ML 15 mL, EPINEPHrine (Adrenalin) 30 MG/30ML 0.125 mL in sodium chloride (PF) 0.9 % 15 mL syringe (4 sources) Start: 01-12-2023 End: 01-12-2023 ropivacaine (Naropin) 5 MG/ML 15 mL, EPINEPHrine (Adrenalin) 30 MG/30ML 0.125 mL in sodium chloride (PF) 0.9 % 15 mL syringe 1000 ml sodium chloride 9 mg/ml injection (20 sources) Start: 09-23-2024 End: 09-23-2024 Starting on Mon09/23/24 at 1151, For 1 dose, Naomi Gil: cabinet override Start: 09-23-2024 End: 09-23-2024 1,000 mL, IntraVENous, at 1, 000 mL/hr, Administer over 1 Hours, Once, On Mon09/23/24 at 1150, For 1 dose Start: 09-23-2024 End: 09-23-2024 IntraVENous, Administer over 1 Hours, Code/trauma/sedation continuous med, Starting on Mon09/23/24 at 1049 Start: 01-12-2023 End: 01-13-2023 10 mL, IntraVENous, Every 12 hours scheduled (2 times per day), First dose on Mon01/12/23 at 2100, Phase II/On Unit Start: 01-12-2023 End: 01-13-2023 take 125 mL intravenously every hour 125 mL/hr, IntraVENous, Continuous, Starting on Mon01/12/23 at 1530, Phase II/On Unit Start: 01-12-2023 End: 01-13-2023 5-250 mL/hr, IntraVENous, NC N, if patient receiving piggyback infusions and maintenance fluids are not ordered OR KVO fluids to protect IV site / prevent frequent line interruptions/ long duration, Starting on Mon01/12/23 at 1529, Phase II/On Unit For piggyback infusion, administer at same rate as piggyback for a total of 25 mL. Enter 25 mL into dose field and piggyback rate into rate field of order. If piggyback is infusing at a rate less than 100 mL/hr, enter 25 mL into dose field and 100 mL/hr into rate field of order. For KVO fluids, enter rate of 20 mL/hr or less into rate field of order. Start: 01-12-2023 End: 01-13-2023 take 10 mL intravenously once 10 mL, IntraVENous, PRN, line care, Starting on Mon01/12/23 at 1529, Phase II/On Unit After every IV line use Start: 05-30-2022 0.9 % sodium c hloride infusion Start: 05-30-2022 sodium chlorid e flush 0.9 % injection 5-40 mL Start: 01-19-2022 End: 01-19-2022 0.9 % sodium chloride bolus Start: 01-18-2022 take 1 dose intraven ously twice daily 5-40 mL, IntraVENous, EVERY 12 HOURS SCHEDULED (2 times per day), First dose on Mon01/18/22 at 2100, Until Discontinued For Line Patency: Peripheral IV = 5 mL; Midline or Central Line = 10 mL/lumen. If following IV push medication, administer flush at same rate as the IV push. Flush volume is determined by type of infusion therapy being given. For non-viscous solutions use: Peripheral IV = 5 mL Midline or Central Line = 10 mL/lumen For viscous solutions (i.e. blood components, parenteral nutrition, contrast media, or after obtaining blood sample) use: Peripheral IV = 10 mL Midline or Central Line = 20 mL/lumen Post-op Start: 01-18-2022 IntraVENous, a t 5-250 mL/hr, PRN, if patient receiving piggyback infusions and maintenance fluids are not ordered OR KVO fluids to protect IV site / prevent frequent line interruptions/ long duration, Starting on Mon01/18/22 at 1318 For piggyback infusion, administer at same rate as piggyback for a total of 25 mL. Enter 25 mL into dose field and piggyback rate into rate field of order. If piggyback is infusing at a rate less than 100 mL/hr, enter 25 mL into dose field and 100 mL/hr into rate field of order. For KVO fluids, enter rate of 20 mL/hr or less into rate field of order. Post-op Start: 01-18-2022 take 5-40 mL intrave nously once as needed 5-40 mL, IntraVENous, PRN, Starting on Mon01/18/22 at 1318, Until Discontinued, Line Care, After every IV line use For Line Patency: Peripheral IV = 5 mL; Midline or Central Line = 10 mL/lumen. If following IV push medication, administer flush at same rate as the IV push. Flush volume is determined by type of infusion therapy being given. For non-viscous solutions use: Peripheral IV = 5 mL Midline or Central Line = 10 mL/lumen For viscous solutions (i.e. blood components, parenteral nutrition, contrast media, or after obtaining blood sample) use: Peripheral IV = 10 mL Midline or Central Line = 20 mL/lumen Post-op stomahesive in petrolatum (ET Mix) (2 sources) Start: 09-26-2024 End: 09-27-2024 Topical, PRN, dry skin, Starting on [facility] 09/26/24 at 0913 therapeutic multivitamin-mine rals (Theragran-M) tablet (2 sources) End: 09-27-2024 take 1 tablet by mouth once daily therapeutic multivitamin-drift miner als (Theragran-M) tablet Take 1 tablet by mouth daily. 09/27/2024 Discontinued (Stop taking at discharge) 10 ml tranexamic acid 100 mg/ml injection (1 source) Antifibrinolytic Agent Start: 01-12-2023 End: 01-12-2023 tranexamic acid (Cyklokapron) injection Problems Active Problems Problem Classification Problem Date Documented Da te Episodic/Chronic Administrative/social admission (4 sources) Patient encounter status; Translations: [Other specified counseling] Onset: 05-31-2022 Episodic Chronic obstructive pulmonary disease and bronchiectasis (20 sources) Chronic obstructive lung disease; Translations: [Chronic obstructive pulmonary disease, unspecified] Onset: 10-04-2021 10-04-2021 Chronic Disorders of lipid metabolism (6 sources) Hyperlipidemia, unspecified; Translations: [Hyperlipidemia, unspecified] Onset: 01-18-2022 Chronic Epilepsy; convulsions (2 sources) Epilepsy, unspecified, not intractable, without status epilepticus; Translations: [Epilepsy, unsp, not intractable, without status epilepticus] Onset: 01-06-2022 Chronic Esophageal disorders (2 sources) Gastro-esophageal reflux disease without esophagitis; Translations: [Gastro-esophageal reflux disease without esophagitis] Onset: 05-30-2022 Chronic Fracture of lower limb (2 sources) Unspecified fracture of left toe(s), initial encounter for closed fracture; Translations: [Unsp fracture of left toe(s), init for clos fx] Onset: 05-30-2022 Episodic Fracture of neck of femur (hip) (6 sources) Closed fracture of neck of femur; Translations: [Fracture of unspecified part of neck of left femur, initial encounter for closed fracture] Onset: 05-30-2022 Episodic Fracture of upper limb (4 sources) Closed fracture of olecranon process of left ulna; Translations: [Displaced fracture of olecranon process without intraarticular extension of left ulna, initial encounter for closed fracture] Onset: 05-30-2022 Episodic Genitourinary symptoms and ill-defined conditions (4 sources) Hesitancy of micturition; Translations: [Dysuria] Onset: 01-18-2022 Episodic Headache; including migraine (2 sources) Chronic migraine without aura, not intractable, without status migrainosus; Translations: [Chronic migraine w/o aura, not intractable, w/o stat migr] Onset: 01-18-2022 Chronic Mood disorders (20 sources) Bipolar I disorder; Translations: [Bipolar disorder, unspecified] Onset: 09-26-2020 09-26-2020 Chronic Mood disorders (4 sources) Mood disorders; Translations: [Depression, unspecified] Onset: 01-18-2022 Nutritional deficiencies (4 sources) Vitamin D deficiency; Translations: [Vitamin D deficiency, unspecified] Onset: 05-30-2022 Chronic Osteoarthritis (20 sources) Osteoarthritis; Translations: [Unspecified osteoarthritis, unspecified site] Onset: 12-27-2021 01-05-2022 Chronic Other acquired deformities (3 sources) Spondylolysis, lumbosacral region; Translations: [Acquired spondylolisthesis] Onset: 02-25-2025 02-25-2025 Episodic Other aftercare (4 sources) exterminator helper termite (current) use of 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/anti platelets; Translations: [FPC (current) use of 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/anti platelets] Onset: 01-18-2022 Episodic Other aftercare (2 sources) Encounter for palliative care; Translations: [Encounter for palliative care] Onset: 05-30-2022 Episodic Other aftercare (2 sources) FPC (current) use of inhaled steroids; Translations: [FPC (current) use of inhaled steroids] Onset: 05-30-2022 Episodic Other aftercare (2 sources) exterminator helper termite (current) use of systemic steroids; Translations: [exterminator helper termite (current) use of systemic steroids] Onset: 05-30-2022 Episodic Other aftercare (2 sources) FPC (current) use of opiate analgesic; Translations: [exterminator helper termite (current) use of opiate analgesic] Onset: 05-30-2022 Episodic Other aftercare (4 sources) Other [facility] (current) drug therapy; Translations: [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] Onset: 01-06-2022 Episodic Other bone disease and musculoskeletal deformities (4 sources) Avascular necrosis of bone of hip; Translations: [Idiopathic aseptic necrosis of right femur] 06-18-2024 Chronic Other bone disease and musculoskeletal deformities (2 sources) Idiopathic aseptic necrosis of right femur; Translations: [Idiopathic aseptic necrosis of right femur (HCC)] Onset: 06-18-2024 Chronic Other bone disease and musculoskeletal deformities (2 sources) Other specified disorders of bone density and structure, left shoulder; Translations: [Oth disrd of bone density and structure, left shoulder] Onset: 05-05-2022 Episodic Other circulatory disease (4 sources) Personal history of transient ischemic attack (TIA), and cerebral infarction without residual deficits; Translations: [Prsnl hx of TIA (TIA), and cereb infrc w/o resid deficits] Onset: 01-18-2022 Episodic Other circulatory disease (2 sources) Orthostatic hypotension; Translations: [Orthostatic hypotension] Onset: 05-30-2022 Episodic Other connective tissue disease (2 sources) History of reverse prosthetic total arthroplasty of left shoulder; Translations: [Presence of left artificial shoulder joint] Chronic Other connective tissue disease (4 sources) Presence of left artificial shoulder joint; Translations: [Presence of left artificial shoulder joint] Onset: 05-05-2022 Chronic Other connective tissue disease (8 sources) History of total knee arthroplasty; Translations: [Presence of right artificial knee joint] 02-01-2023 Chronic Other connective tissue disease (2 sources) Fibromyalgia; Translations: [Fibromyalgia] Onset: 05-30-2022 Episodic Other gastrointestinal disorders (2 sources) Irritable bowel syndrome without diarrhea; Translations: [Irritable bowel syndrome without diarrhea] Onset: 05-30-2022 Chronic Other injuries and conditions due to external causes (2 sources) History of falling; Translations: [History of falling] Onset: 05-30-2022 Episodic Other lower respiratory disease (2 sources) Hypoxia; Translations: [Hypoxemia] Onset: 06-05-2022 Episodic Other lower respiratory disease (2 sources) Hypoxemia; Translations: [Hypoxemia] Onset: 05-30-2022 Episodic Other nervous system disorders (2 sources) Disorder of brain; Translations: [Encephalopathy, unspecified] Onset: 06-01-2022 Chronic Other nervous system disorders (2 sources) Aphasia; Translations: [Aphasia] Onset: 05-30-2022 Chronic Other nervous system disorders (2 sources) Neuropathy; Translations: [Polyneuropathy, unspecified] 09-27-2024 Chronic Other nervous system disorders (4 sources) Polyneuropathy, unspecified; Translations: [Polyneuropathy, unspecified] Onset: 09-23-2024 Chronic Other nervous system disorders (2 sources) Acute pain due to injury; Translations: [Acute pain due to trauma] Onset: 05-30-2022 Episodic Other nervous system disorders (2 sources) Slurred speech; Translations: [Slurred speech] Onset: 05-30-2022 Episodic Other non-traumatic joint disorders (1 source) Chronic pain; Translations: [Pain in left shoulder] Episodic Other non-traumatic joint disorders (2 sources) Shoulder pain; Translations: [Pain in left shoulder] Episodic Other non-traumatic joint disorders (2 sources) Pain in left shoulder; Translations: [Pain in left shoulder] Onset: 05-05-2022 Episodic Other non-traumatic joint disorders (5 sources) Hip pain; Translations: [Pain in left hip] Episodic Other non-traumatic joint disorders (3 sources) Pain in right knee; Translations: [Pain in joint, lower leg] Episodic Other non-traumatic joint disorders (3 sources) Pain in right hip joint; Translations: [Pain in right hip] 09-11-2023 Episodic Other non-traumatic joint disorders (2 sources) Sacroiliac disorder; Translations: [Sacrococcygeal disorders, not elsewhere classified] 02-25-2025 Episodic Other nutritional; endocrine; and metabolic disorders (20 sources) Body mass index 30+ - obesity; Translations: [Obesity, unspecified] Onset: 01-27-2022 01-27-2022 Chronic Other nutritional; endocrine; and metabolic disorders (4 sources) Obesity, unspecified; Translations: [Obesity, unspecified] Onset: 01-18-2022 Chronic Other nutritional; endocrine; and metabolic disorders (2 sources) Body mass index (BMI) 33.0-33.9, adult; Translations: [Body mass index [BMI] 33.0-33.9, adult] Onset: 01-18-2022 Chronic Other nutritional; endocrine; and metabolic disorders (2 sources) Body mass index (BMI) 30.0-30.9, adult; Translations: [Body mass index [BMI] 30.0-30.9, adult] Onset: 05-30-2022 Chronic Other nutritional; endocrine; and metabolic disorders (2 sources) Body mass index (BMI) 32.0-32.9, adult; Translations: [Body mass index [BMI] 32.0-32.9, adult] Onset: 01-06-2022 Chronic Phlebitis; thrombophlebitis and thromboembolism (2 sources) Personal history of other venous thrombosis and embolism; Translations: [Personal history of other venous thrombosis and embolism] Onset: 05-30-2022 Episodic Residual codes; unclassified (4 sources) Obstructive sleep apnea (adult) (pediatric); Translations: [Obstructive sleep apnea (adult) (pediatric)] Onset: 01-06-2022 Chronic Residual codes; unclassified (2 sources) Disorientation, unspecified; Translations: [Disorientation, unspecified] Onset: 05-30-2022 Episodic Spondylosis; intervertebral disc disorders; other back problems (6 sources) Low back pain; Translations: [Lumbar pain] Onset: 02-25-2025 02-25-2025 Episodic Thyroid disorders (20 sources) Hypothyroidism; Translations: [Hypothyroidism, unspecified] Onset: 01-05-2022 01-05-2022 Chronic Unclassified (1 source) Contact with and (suspected) exposure to COVID-19; Translations: [Contact with and (suspected) exposure to COVID-19] Onset: 05-30-2022 Unclassified (1 source) Low back pain, unspecified; Translations: [Low back pain, unspecified] Onset: 02-25-2025 Urinary tract infections (1 source) Urinary tract infection, site not specified; Translations: [Urinary tract infection, site not specified] Onset: 05-12-2025 Episodic Past or Other Problems Problem Classification Problem Date Documented Date Episodic/Chronic Allergic reactions (8 sources) Allergy status to analgesic agent status; Translations: [Allergy status to narcotic agent status] Onset: 01-18-2022 Episodic Coma; stupor; and brain damage (2 sources) [place] coma scale score 13-15, at arrival to emergency department; Translations: [[place] coma scale score 13-15, EMR] Onset: 01-06-2022 Episodic Conditions associated with dizziness or vertigo (20 sources) Dizziness; Translations: [Dizziness and giddiness] Onset: 01-06-2022 01-06-2022 Episodic E Codes: Fall (20 sources) Fall on same level; Translations: [Fall on same level, unspecified, initial encounter] Onset: 01-04-2022 01-04-2022 Episodic Epilepsy; convulsions (2 sources) Unspecified convulsions; Translations: [Unspecified convulsions] Onset: 01-18-2022 Episodic Intracranial injury (20 sources) Concussion with less than 1 hour loss of consciousness; Translations: [Concussion with loss of consciousness of 30 minutes or less, initial encounter] Onset: 01-06-2022 01-06-2022 Episodic Malaise and fatigue (20 sources) Asthenia; Translations: [Other malaise] Onset: 01-05-2022 01-05-2022 Episodic Other aftercare (20 sources) Polypharmacy ; Translations: [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] Onset: 01-05-2022 01-05-2022 Episodic Other circulatory disease (20 sources) History of cerebrovascular disease; Translations: [Personal history of transient ischemic attack (TIA), and cerebral infarction without residual deficits] Onset: 10-04-2021 10-04-2021 Episodic Other connective tissue disease (20 sources) Rotator cuff arthropathy of left shoulder; Translations: [Unspecified rotator cuff tear or rupture of left shoulder, not specified as traumatic] Onset: 01-18-2022 Episodic Other connective tissue disease (2 sources) Impingement syndrome of left shoulder; Translations: [Impingement syndrome of left shoulder] Onset: 12-27-2021 Episodic Other injuries and conditions due to external causes (20 sources) Injury of head; Translations: [Unspecified injury of head, initial encounter] Onset: 01-05-2022 01-05-2022 Episodic Other nervous system disorders (2 sources) Other abnormalities of gait and mobility; Translations: [Other abnormalities of gait and mobility] Onset: 01-06-2022 Episodic Other non-traumatic joint disorders (2 sources) Pain in right elbow; Translations: [Pain in right elbow] Onset: 01-06-2022 Episodic Other non-traumatic joint disorders (4 sources) Pain in right hip; Translations: [Pain in right hip] Onset: 01-06-2022 Episodic Other non-traumatic joint disorders (20 sources) Pain in elbow; Translations: [Pain in left elbow] Onset: 07-07-2022 07-07-2022 Episodic Other screening for suspected conditions (not mental disorders or infectious disease) (20 sources) Electrocardiogram abnormal; Translations: [Abnormal electrocardiogram [ECG] [EKG]] Onset: 10-04-2021 10-04-2021 Episodic Pneumonia (except that caused by tuberculosis or sexually transmitted disease) (20 sources) Pneumonia; Translations: [Pneumonia, unspecified organism] Onset: 09-23-2024 09-27-2024 Episodic Poisoning by other medications and drugs (2 sources) Poisoning by unspecified drugs, medicaments and biological substances, accidental (unintentional), initial encounter; Translations: [Poisoning by unsp drug/meds/biol subst, accidental, init] Onset: 01-06-2022 Episodic Residual codes; unclassified (20 sources) At risk of delirium; Translations: [Other specified personal risk factors, not elsewhere classified] Onset: 01-05-2022 01-05-2022 Episodic Residual codes; unclassified (2 sources) Acquired absence of other specified parts of digestive tract; Translations: [Acquired absence of other specified parts of digestive tract] Onset: 01-18-2022 Episodic Residual codes; unclassified (2 sources) Acquired absence of both cervix and uterus; Translations: [Acquired absence of both cervix and uterus] Onset: 01-18-2022 Episodic Screening and history of mental health and substance abuse codes (4 sources) Personal history of nicotine dependence; Translations: [Personal history of nicotine dependence] Onset: 01-06-2022 Episodic Suicide and intentional self-inflicted injury (10 sources) Suicide attempt by inadequate means; Translations: [Intentional self-harm by other specified means, initial encounter] Onset: 07-23-2023 07-23-2023 Episodic Superficial injury; contusion (2 sources) Contusion of scalp, initial encounter; Translations: [Contusion of scalp, initial encounter] Onset: 01-06-2022 Episodic Syncope (20 sources) Near syncope; Translations: [Syncope and collapse] Onset: 10-04-2021 10-04-2021 Episodic Unclassified (1 source) Contact with and (suspected) exposure to COVID-19; Translations: [Contact with and (suspected) exposure to COVID-19] Onset: 05-30-2022 Unclassified (1 source) Spondylolysis, lumbosacral 02-25-2025 Unclassified (1 source) Low back pain, unspecified; Translations: [Low back pain, unspecified] Onset: 02-25-2025 Results Test Name Value Interpretation Reference Range Facility Carbamazepine (Tegretol)on 1 CARBAMAZEPINE 6.1 ug/mL Normal 4.0-12.0 [facility] Comment on above: Order Comment: 104-2 Performed By: #### L 501.7900, L501.9520 #### [facility] [address] [place], [address] Thyroid Stim Hormone (TSH)on 05-14-2025 TSH 6.900 uIU/mL High 0.300-4.200 [facility] Comment on above: Order Comment: 104-2 Performed By: #### L 501.7900, [id number] #### [facility] [address] [place], [address] Carbamazepine (Tegretol)on 0 05-09-2025 CARBAMAZEPINE 5.1 ug/mL Normal 4.0-12.0 [facility] Comment on above: Order Comment: 104-2 Performed By: #### L 501.9520, L501.7900 #### [facility] [address] [place], [address] Thyroid Stim Hormone (TSH)on 05-09-2025 TSH 4.720 uIU/mL High 0.300-4.200 [facility] Comment on above: Order Comment: 104-2 Performed By: #### L 501.7900, [id number] #### [facility] [address] [place], [address] Urine Cultureon 04-27-2025 URC #2 Below infection level. Urine Culture Proteus mirabilis Armour Count 25,000-50,000 Mixed Gram Positive Organisms Mixed Gram Positive Organisms MIXC Mixed contaminants. Submit a new specimen if indicated. Proteus mirabilis: REACTION Ampicillin Islt LELA <=2 Ampicillin+Sulbac Islt LELA <=2 S Cefepime Islt LELA <=0.12 cefTRIAXone Islt LELA <=0.25 S Ciprofloxacin Islt LELA <=0.06 S Gentamicin Islt LELA <=1 S levoFLOXacin Islt LELA <=0.12 S Meropenem Islt LELA <=0.25 S Nitrofurantoin Islt LELA 128 R Pip+Tazo Islt LELA <=4 S TMP SMX Islt LELA <=20 S Normal [facility] Comment on above: Performed By: #### M 100.2200, [id number] #### [facility] [address] [place], [address] Urinalysis, Completeon 04-25 AMORPHOUS 4+ URATE Normal [facility] Comment on above: Order Comment: CLEAN CATCH Performed By: #### M 100.2200, [id number] #### [facility] [address] [place], [address] RBC 0-5 SEEN Normal 0-5 [facility] Comment on above: Order Comment: CLEAN CATCH Performed By: #### M 100.2200, [id number] #### [facility] [address] [place], [address] WBC 50-100 SEEN Normal 0-5 [facility] Comment on above: Order Comment: CLEAN CATCH Performed By: #### M 100.2200, [id number] #### [facility] [address] [place], [address] BACTERIA 0 SEEN Normal None Seen [facility] Comment on above: Order Comment: CLEAN CATCH Performed By: #### M 100.2200, [id number] #### [facility] [address] [place], [address] EPI,SQUAMOUS 0 SEEN Normal 5-10 [facility] Comment on above: Order Comment: CLEAN CATCH Performed By: #### M 100.2200, [id number] #### [facility] [address] [place], [address] Mucus Ql (Urine sed) 0 SEEN Normal [facility] Comment on above: Order Comment: CLEAN CATCH Performed By: #### M 100.2200, [id number] #### [facility] [address] [place], [address] Office Visiton 02-25-2025 Follow-up visit [id number] Andre Blanca 1950 F Date Provider Department Center 02/25/2025 [id number] [facility]INO[facility] None Family History Problem Relation Age of Onset Emphysema Father Alcohol abuse Mother Family Status - Relation Status Age at Father Mother Level of Service:12950 NC OFFICE/OUTPATIENT NEW LOW MDM 30 MINUTES Reason for Visit and Comments: Follow-up [952202] - Low Back Pain Normal [facility] Progress Noteon 02-25-2025 Progress Note [facility] - [id number] [place] [address] Dept: [phone] Dept Chief Complaint Patient presents with Follow-up Low Back Pain Subjective History of Present Illness: Andre Blanca is a 74 y.o. female who presents today for evaluation of back pain. Says she was diagnosed with scoliosis as a teenager and also mentions she has open wound on the end of her tailbone that drains every 2 months. Her back pain is located above the pelvis at the hip junction and bilateral. States it moves around to the front of her hips and does not radiate. It is a sharp pain and she difficulty getting up and down from a seated position. Says she has to lay on her right side because she broke her left hip and does have hardware. She is a resident at a assisted living facilty. 08/21/20 Location: midline and bilateral Onset: 10 years year, chronic Injury: no Quality: aching and sharp Radiation of symptoms: no Severity: 0/10 at rest and 7/10 at worst Exacerbating factor(s): flexion, extension, side bending, rotation, walking, prolonged standing, prolonged sitting, rising from a seated position, and climbing/descending stairs Relieving factor(s): rest and activity modification Timing: all day Low back red flags: Metastatic cancer: No Recent trauma: No Bowel or bladder incontinence: No Urinary retention: No Progressive lower extremity weakness or sensory loss: No Saddle anesthesia: No Spinal surgery in the last year: No IV drug abuse: No Unexplained weight loss: No Immunosuppression: No Chronic steroid use: No Fevers, chills, nights sweats: No Unremitting/rest pain: No Imaging to date: X-Ray Performed Today's Visit 02/25/25 Treatment to date: PT/OT/HEP: no Ice: yes, not helpful Heat: no Medications: Tylenol: NSAIDs: yes, Aleve/Naproxen, helpful Oral steroids: no Muscle relaxants: yes, Methocarbamol/Robaxin, not helpful Nerve medications: no Targeted injections: none Assistive devices: roll-aider Prior surgery: yes - left hip fracture Occupation: Retired, various jobs Fall risk assessment: Completed today. Have you had 2 or more falls in the last year? No Have you had a fall with injury in the last year? No Do you feel unsteady or worried about falling? No Objective Visit Vitals BP 118/79 Pulse 70 Physical Exam: General: Alert, well appearing, no acute distress. Respiratory: Breathing comfortably on room air. No respiratory distress. Skin: Warm, dry, intact. No visible rashes or erythema overlying area of focused exam. Physical Exam Musculoskeletal: Lumbar back: Tenderness present. No swelling, deformity, spasms or bony tenderness. Decreased range of motion. Negative right straight leg raise test and negative left straight leg raise test. Back: Comments: Strength Testing Hip Flexors (T12-L3) normal strength bilateral, no weakness Quad (L2-L4) normal strength bilateral, no weakness Tibialis Anterior (L4) normal strength bilateral, no weakness Extensor Hallusis Longus (L5) normal strength bilateral, no weakness Peroneus Longus (S1) normal strength bilateral, no weakness Gastroc (S1) normal strength bilateral, no weakness Sensation Testing Lateral Thigh (L1-L2) intact to light touch bilateral, no paresthesia Medial Knee (L3) intact to light touch bilateral, no paresthesia Medial Calf, Medial Foot (L4) intact to light touch bilateral, no paresthesia Lateral Calf, 1st web space (L5) intact to light touch bilateral, no paresthesia Lateral Foot (S1) intact to light touch bilateral, no paresthesia Reflexes Patella (L4) 2+ equal bilaterally Achilles (S1) 2+ equal bilaterally External Notes No pertinent interval updates Labs Lab Results Component Value Date HGBA1C 5.2 07/25/2023 Lab Results Component Value Date CREATININE 0.68 09/26/2024 Imaging Images reviewed with patient today I have personally reviewed the images pertinent to the appointment today EMG/NCT No interval studies Procedure No procedures completed today Assessment Diagnosis Plan 1. Spondylolysis, lumbosacral Ambulatory referral to Physical Therapy 2. Sacroiliac dysfunction Ambulatory referral to Physical Therapy 3. Lumbar pain XR lumbar spine 4-5 view Ambulatory referral to Physical Therapy Plan -Discussed with the patient the nature of lumbar radiculitis/ radiculopathy. -Discussed x-ray imaging results with patient. -Discussed options for activity modification, maintaining a normal level of activity as tolerated, avoiding bed rest. -Discussed possible treatment modalities including PT, muscle relaxants, corticosteroids, OTC analgesics including acetaminophen &/or NSAIDs. -Questions answered. -Will prescribe PT at home on their own with exercises given. and an outside facility - correction. -Written patient information provided in the AVS. -Reasons to call or return discussed (more content not included)... Normal [facility] Basic Metabolic Profile (BMP )on 09-30-2024 BUN/CRE 11.1 RATIO Normal 10-20 [facility] Comment on above: Order Comment: 104-2 Performed By: #### L 500.2500, L100.0500 #### [facility] [address] [place], [address] CA,Total 9.1 mg/dL Normal 8.5-10.1 [facility] Comment on above: Order Comment: 104-2 Performed By: #### L 500.2500, L100.0500 #### [facility] [address] [place], [address] Chloride [Moles/Vol] 100 mmol/L Normal 98-107 [facility] Comment on above: Order Comment: 104-2 Performed By: #### L 500.2500, L100.0500 #### [facility] [address] [place], [address] CO2 [Moles/Vol] 33.0 mmol/L High 21.0-32.0 [facility] Comment on above: Order Comment: 104-2 Performed By: #### L 500.2500, L100.0500 #### [facility] [address] [place], [address] Creatinine [Mass/Vol] 0.63 mg/dL Normal 0.55-1.02 [facility] Comment on above: Order Comment: 104-2 Result Comment: The validity of the calculated GFR GFRAA in patients over 70 years has not been determined. Clinical correlation is essential. Performed By: #### L 500.2500, L100.0500 #### [facility] [address] [place], [address] EST GFR - AA 118 mL/min Normal >60 [facility] Comment on above: Order Comment: 104-2 Result Comment: Afri can Hungarian GFR Calc Performed By: #### L 500.2500, L100.0500 #### [facility] [address] [place], [address] GAP 6 Normal 5-15 [facility] Comment on above: Order Comment: 104-2 Performed By: #### L 500.2500, L100.0500 #### [facility] [address] [place], [address] GFR/1.73 sq M.predicted among non-blacks MDRD (S/P/Bld) [Vol rate/Area] 98 mL/min/{1.73_m2} Normal >60 [facility] Comment on above: Order Comment: 104-2 Result Comment: Non- GFR Calc Performed By: #### L 500.2500, L100.0500 #### [facility] [address] [place], [address] Glucose [Mass/Vol] 111 mg/dL High 74-106 [facility] Comment on above: Order Comment: 104-2 Result Comment: Fast ing Glucose result from 100 to 125 mg/dL suggests IMPAIRED HOMEOSTASIS per A.D.A. criteria. Performed By: #### L 500.2500, L100.0500 #### [facility] [address] [place], [address] Potassium [Moles/Vol] 3.0 mmol/L Low 3.5-5.1 [facility] Comment on above: Order Comment: 104-2 Result Comment: Slig ht Hemolysis, Result may be falsely increased. Performed By: #### L 500.2500, L100.0500 #### [facility] [address] [place], [address] Sodium [Moles/Vol] 139 mmol/L Normal 136-145 [facility] Comment on above: Order Comment: 104-2 Performed By: #### L 500.2500, L100.0500 #### [facility] [address] [place], [address] Urea nitrogen [Mass/Vol] 7 mg/dL Normal 7-18 [facility] Comment on above: Order Comment: 104-2 Performed By: #### L 500.2500, L100.0500 #### [facility] [address] [place], [address] Blood urea nitrogen (BUN)/cr eatinine ratioOrdered By: Kianna Izquierdo on 09-30-2024 Urea nitrogen/Creatinine [Mass ratio] 11.1 mg/mg 10-20 [facility] CBC-Complete Blood Cnt No Di ffon 09-30-2024 Erythrocyte distribution width (RBC) [Ratio] 12.9 % Normal 11.6-14.6 [facility] Comment on above: Order Comment: 104-2 Performed By: #### L 500.2500, L100.0500 #### [facility] [address] [place], [address] Hematocrit (Bld) [Volume fraction] 36.4 % Low 37-47 [facility] Comment on above: Order Comment: 104-2 Performed By: #### L 500.2500, L100.0500 #### [facility] [address] [place], [address] Hemoglobin (Bld) [Mass/Vol] 11.3 g/dL Low 12.0-15.0 [facility] Comment on above: Order Comment: 104-2 Performed By: #### L 500.2500, L100.0500 #### [facility] [address] [place], [address] MCH (RBC) [Entitic mass] 30.0 pg Normal 27.0-32.0 [facility] [place] Comment on above: Order Comment: 104-2 Performed By: #### L 500.2500, L100.0500 #### [facility] [place] [facility] [address] [place], [address] MCHC (RBC) [Mass/Vol] 31.0 g/dL Low 32-36 [facility] Comment on above: Order Comment: 104-2 Performed By: #### L 500.2500, L100.0500 #### [facility] [place] [facility] [address] [place], [address] MCV (RBC) [Entitic vol] 96.6 fL Normal 81-99 [facility] Comment on above: Order Comment: 104-2 Performed By: #### L 500.2500, L100.0500 #### [facility] [place] [facility] [address] [place], [address] Platelet mean volume (Bld) [Entitic vol] 9.6 fL Normal 6.2-12.0 [facility] [place] Comment on above: Order Comment: 104-2 Performed By: #### L 500.2500, L100.0500 #### [facility] [place] [facility] [address] [place], [address] Platelets (Bld) [#/Vol] 381 10*3/uL Normal 150-450 [facility] [place] Comment on above: Order Comment: 104-2 Performed By: #### L 500.2500, L100.0500 #### [facility] [place] [facility] [address] [place], [address] RBC (Bld) [#/Vol] 3.77 10*6/uL Low 4.2-5.4 [facility] Comment on above: Order Comment: 104-2 Performed By: #### L 500.2500, L100.0500 #### [facility] [place] [facility] [address] [place], [address] RDW SD 46.2 fl High 35.1-43.9 [facility] [place] Comment on above: Order Comment: 104-2 Performed By: #### L 500.2500, L100.0500 #### [facility] [place] [facility] [address] [place], [address] WBC (Bld) [#/Vol] 8.1 10*3/uL Normal 4.4-11.0 [facility] Comment on above: Order Comment: 104-2 Performed By: #### L 500.2500, L100.0500 #### [facility] [place] [facility] [address] [place], [address] Carbon dioxide measurementOr dered By: Kianna Izquierdo on 09-30-2024 CO2 [Moles/Vol] 33.0 mmol/L High 21.0-32.0 [facility] [place] Chloride measurementOrdered By: Kianna Izquierdo on 09-30-2024 Chloride [Moles/Vol] 100 mmol/L 98-107 [facility] Erythrocyte distribution wid th ratioOrdered By: Kianna Izquierdo on 09-30-2024 Erythrocyte distribution width (RBC) [Ratio] 12.9 % 11.6-14.6 [facility] [place] Erythrocyte distribution wid th standard deviationOrdered By: Kianna Izquierdo on 09-30-2024 Erythrocyte distribution width (RBC) [Entitic vol] 46.2 fL High 35.1-43.9 [facility] [place] Estimated glomerular filtrat ion rate (GFR) AmericanOrdered By: Kianna Izquierdo on 09-30-2024 Estimated GFR (MDRD) Amer 118 mL/min >60 [facility] [place] Comment on above: GFR Calc Glomerular filtration rate ( GFR) estimationOrdered By: Kianna Izquierdo on 09-30-2024 Estimated GFR (MDRD) Non-Af Amer 98 mL/min >60 [facility] [place] Comment on above: Non- GFR Calc Glucose measurementOrdered B y: Kianna Izquierdo on 09-30-2024 Glucose [Mass/Vol] 111 mg/dL High 74-106 [facility] Comment on above: Fasting Glucose resu lt from 100 to 125 mg/dL suggests IMPAIRED HOMEOSTASIS per A.D.A. criteria. Hematocrit Auto (Bld) [Volum e fraction]Ordered By: Kianna Izquierdo on 09-30-2024 Hematocrit (Bld) [Volume fraction] 36.4 % Low 37-47 [facility] [place] Hemoglobin measurementOrdere d By: Kianna Izquierdo on 09-30-2024 Hemoglobin (Bld) [Mass/Vol] 11.3 g/dL Low 12.0-15.0 [facility] [place] MCV (mean corpuscular volume ) determinationOrdered By: Kianna Izquierdo on 09-30-2024 MCV (RBC) [Entitic vol] 96.6 fL 81-99 [facility] Mean corpuscular hemoglobin (MCH) determinationOrdered By: Kianna Izquierdo on 09-30-2024 MCH (RBC) [Entitic mass] 30.0 pg 27.0-32.0 [facility] [place] Mean corpuscular hemoglobin concentration (MCHC) determinationOrdered By: Kianna Izquierdo on 09-30-2024 MCHC (RBC) [Mass/Vol] 31.0 g/dL Low 32-36 [facility] Mean platelet volume determi nationOrdered By: Kianna Izquierdo on 09-30-2024 Platelet mean volume (Bld) [Entitic vol] 9.6 fL 6.2-12.0 [facility] [place] Platelet countOrdered By: Doc Deras on 09-30-2024 Platelets (Bld) [#/Vol] 381 10*3/uL 150-450 [facility] [place] Potassium measurementOrdered By: Kianna Izquierdo on 09-30-2024 Potassium [Moles/Vol] 3.0 mmol/L Low 3.5-5.1 [facility] Comment on above: Slight Hemolysis, Re sult may be falsely increased. RBC Auto (Bld) [#/Vol]Ordere d By: Kianna Izquierdo on 09-30-2024 RBC (Bld) [#/Vol] 3.77 10*6/uL Low 4.2-5.4 [facility] Serum anion gap measurementO rdered By: Kianna Izquierdo on 09-30-2024 Anion gap [Moles/Vol] 6 mmol/L - [facility] Serum or plasma calcium carlie urement (mass/volume)Ordered By: Kianna Izquierdo on 09-30-2024 Calcium [Mass/Vol] 9.1 mg/dL 8.5-10.1 [facility] Serum or plasma creatinine m easurement (mass/volume)Ordered By: Kianna Izquierdo on 09-30-2024 Creatinine [Mass/Vol] 0.63 mg/dL 0.55-1.02 [facility] Comment on above: The validity of the calculated GFR & GFRAA in patients over 70 years has not been determined. Clinical correlation is essential. Serum or plasma urea nitroge n measurement (mass/volume)Ordered By: Kianna Izquierdo on 09-30-2024 Urea nitrogen [Mass/Vol] 7 mg/dL 02-28 [facility] [place] Sodium levelOrdered By: Manpreet Izquierdo on 09-30-2024 Sodium [Moles/Vol] 139 mmol/L 136-145 [facility] White blood cell (WBC) count Ordered By: Kianna Izquierdo on 09-30-2024 WBC (Bld) [#/Vol] 8.1 10*3/uL 4.4-11.0 [facility] 30on 09-27-2024 30 Problem: Pain - Adul t Goal: Verbalizes/displays adequate comfort level or baseline comfort level Outcome: Progressing Problem: Safety - Adult Goal: Free from fall injury Outcome: Progressing Problem: Knowledge Deficit Goal: Patient/family/caregiv er demonstrates understanding of disease process, treatment plan, medications, and discharge instructions Outcome: Progressing Problem: Potential for Compromised Skin Integrity Goal: Skin Integrity is Maintained or Improved Outcome: Progressing Goal: Nutritional status is improving Outcome: Progressing Problem: Urinary Incontinence Goal: Perineal skin integrity is maintained or improved Outcome: Progressing Problem: Problem Interventions Goal: Assess Nutritional Intake Outcome: Progressing [facility] [id number] 09-27-2024 [id number] Auth approved. TCC messaged attending to place orders, RN and SW to make aware of DC today. Discharge order placed. ROSALIO completed. TC tasked HOT SAW OPERATOR to set up transport. Transport set up for 3:00 pm. TCC notified RN and social secretary of time. TCC updated pt at bedside of DC and time and possible cost of transport. Pt verbalized understanding. TCC spoke to son via phone call to update and time. HOT SAW OPERATOR notified facility. TCC tasked [facility] to transmit discharge ordrers to SNF. Pt does not need PASR as she is a return to same facility. Discharge date updated and milestones completed. Pt will be transported to [facility] via ambulance transport today at 3:00 pm. [facility] [phone] Confirmed pickup chip e of 3 pm by transport ChaoWIFI at phone number . Location of facility drop off is [facility]. Facility notified via [facility], [facility] Betzaida Andrade notified on secure chat. [facility] [phone] MAR & Discharge med list [facility] request. [facility] [phone] Transport requested in [facility]. Awaiting time confirmation. [facility] Nursing Noteon 09-27-2024 Nursing Note Patient IV taken out . Patient discharged off unit in stable condition via private vehicle. [facility] 30on 09-26-2024 30 Problem: Pain - Adul t Goal: Verbalizes/displays adequate comfort level or baseline comfort level Outcome: Progressing Flowsheets (Taken 09/26/2024454) Verbalizes/displays adequate comfort level or baseline comfort level: Encourage patient to monitor pain and request assistance Assess pain using appropriate pain scale Problem: Safety - Adult Goal: Free from fall injury Outcome: Progressing Problem: Knowledge Deficit Goal: Patient/family/caregiv er demonstrates understanding of disease process, treatment plan, medications, and discharge instructions Outcome: Progressing Flowsheets (Taken 09/26/2024454) Patient/family/caregiv er demonstrates understanding of disease process, treatment plan, medications, and discharge instructions: Provide teaching at level of understanding Problem: Potential for Compromised Skin Integrity Goal: Skin Integrity is Maintained or Improved Outcome: Progressing Flowsheets (Taken 09/26/2024454) Skin integrity is maintained or improved: Assess and monitor skin integrity Keep skin clean and dry Identify patients at risk for skin breakdown on admission and per policy Avoid shearing Normal [facility] [id number] 09-26-2024 [id number] TCC updated SNF that plan to start auth today. TCC tasked Rosanna to start auth for [place] [facility] erma. Auth pending. TCC will follow for auth. [facility] BASIC METABOLIC PANELon 09-14 Anion gap [Moles/Vol] 9 mmol/L Normal -13 [facility] Comment on above: Performed By: #### L AB15, [id number] ####New Accounts Clerk: STAR DE LA ROSA ([id number])[address] Calcium [Mass/Vol] 8.8 mg/dL Normal 8.8-10.0 [facility] Comment on above: Performed By: #### L AB15, [id number] ####New Accounts Clerk: STAR DE LA ROSA ([id number])[facility] ([facility])[address] [place] [address] Chloride [Moles/Vol] 103 mmol/L Normal 98-107 [facility] Comment on above: Performed By: #### L AB15, [id number] ####New Accounts Clerk: STAR DE LA ROSA ([id number])[facility])[address] [place] [address] CO2 [Moles/Vol] 29 mmol/L Normal 23-31 [facility] Comment on above: Performed By: #### L AB15, [id number] ####New Accounts Clerk: STAR DE LA ROSA ([phone])[facility])[address] [place] [address] Creatinine [Mass/Vol] 0.68 mg/dL Normal 0.57-1.11 [facility] Comment on above: Performed By: #### L AB15, [id number] ####New Accounts Clerk: STAR DE LA ROSA ([id number])[facility])[address] [place] [address] GLOMERULAR FILTRATION RATE ML/MIN/1.73 SQ M.PREDICTED >90.0 Normal >60.0 [facility] Comment on above: Result Comment: Calc ulation based on the Chronic Kidney Disease Epidemiology Collaboration (CKD-EPI) equation refit without adjustment for race Performed By: #### L AB15, [id number] ####New Accounts Clerk: STAR DE LA ROSA ([id number])[facility])[address] [place] [address] Glucose [Mass/Vol] 116 mg/dL High 82-115 [facility] Comment on above: Performed By: #### L AB15, [id number] ####New Accounts Clerk: STAR DE LA ROSA ([phone])[facility])[address] [place] [address] Potassium [Moles/Vol] 3.5 mmol/L Normal 3.5-5.1 [facility] Comment on above: Result Comment: [facility] potassium values may be up to 0.5 mmol/L lower than serum values. Performed By: #### L AB15, [id number] ####New Accounts Clerk: STAR DE LA ROSA ([id number])[facility])[address] [place] [address] [place] Sodium [Moles/Vol] 141 mmol/L Normal 136-145 [facility] Comment on above: Performed By: #### L AB15, [id number] ####New Accounts Clerk: STAR DE LA ROSA ([id number])[facility] ([facility])[address] [place] [address] Urea nitrogen [Mass/Vol] 6 mg/dL Low 9-23 [facility] Comment on above: Performed By: #### L AB15, [id number] ####New Accounts Clerk: STAR DE LA ROSA ([id number])[facility] ([facility])[address] [place] [address] Bacteria identified Aer cx N om (Lower resp)Ordered By: Marjorie Whittington on 09-26-2024 Gram Stain Result Rare Epithelial cell s per low power field [facility] Gram Stain Result Many Polymorphonucle ar leukocytes per low power field [facility] Gram Stain Result No organisms seen [facility] Bacteria identified Cx Nom ( Bld)Ordered By: Mukund Fox on 09-26-2024 Interpretation and review of laboratory results Abnormal [facility] Blood Collection Sit e: Right Wrist [facility] Basic metabolic 1998 panelon 09-26-2024 Anion gap [Moles/Vol] 9 mmol/L 3 - 13 mmol/L [facility] Calcium [Mass/Vol] 8.8 mg/dL 8.8 - 10. 0 mg/dL [facility] Chloride [Moles/Vol] 103 mmol/L 98 - 10 7 mmol/L [facility] CO2 [Moles/Vol] 29 mmol/L 23 - 31 mmol/L [facility] Creatinine [Mass/Vol] 0.68 mg/dL 0.57 - 1.11 mg/dL [facility] GFR/1.73 sq M.predicted (S/P/Bld) [Vol rate/Area] - PINF [facility] Comment on above: Calculation based on the Chronic Kidney Disease Epidemiology Collaboration (CKD-EPI) equation refit without adjustment for race Glucose [Mass/Vol] 116 mg/dL High 82 - 115 mg/dL [facility] Interpretation and review of laboratory results Abnormal [facility] Potassium [Moles/Vol] 3.5 mmol/L 3.5 - 5.1 mmol/L [facility] Comment on above: Plasma potassium [place] ues may be up to 0.5 mmol/L lower than serum values. Sodium [Moles/Vol] 141 mmol/L 136 - 145 mmol/L [facility] [employer] Urea nitrogen [Mass/Vol] 6 mg/dL Low 9 - 23 mg/dL [facility] CBC W Auto Differential pane l (Bld)on 09-26-2024 Basophils (Bld) [#/Vol] 0.1 10*3/uL 0.0 - 0.2 10*3/uL [facility] Basophils/100 WBC (Bld) 1.1 % 0.0 - 2.0 % [facility] Eosinophils (Bld) [#/Vol] 0.3 10*3/uL 0.0 - 0.5 10*3/uL [facility] Eosinophils/100 WBC (Bld) 3 % 0.0 - 6.0 % [facility] Erythrocyte distribution width (RBC) [Ratio] 13.2 % 11.5 - 15.0 % [facility] Hematocrit (Bld) [Volume fraction] 33 % Low 35.0 - 47.0 % [facility] Hemoglobin (Bld) [Mass/Vol] 11.1 g/dL Low 11.7 - 16.0 g/dL [facility] Immature granulocytes (Bld) [#/Vol] 0.2 10*3/uL High NINF - 0.1 10*3/uL [facility] [employer] Immature granulocytes/100 WBC (Bld) 1.7 % 0.0 - 2.0 % [facility] Interpretation and review of laboratory results Abnormal [facility] Lymphocytes (Bld) [#/Vol] 1.4 10*3/uL 1.0 - 4.3 10*3/uL [facility] Lymphocytes/100 WBC (Bld) 13.8 % Low 15.0 - 45.0 % [facility] MCH (RBC) [Entitic mass] 30.9 pg 26.0 - 34.0 pg [facility] MCHC (RBC) [Mass/Vol] 33.6 % 30.5 - 36.0 % [facility] MCV (RBC) [Entitic vol] 91.9 fL 77.0 - 99.0 fL [facility] Monocytes (Bld) [#/Vol] 1.2 10*3/uL High 0.0 - 0.9 10*3/uL [facility] [employer] Monocytes/100 WBC (Bld) 11 % 5.0 - 13.0 % [facility] Neutrophils (Bld) [#/Vol] 7.3 10*3/uL 1.8 - 7.5 10*3/uL [facility] Neutrophils/100 WBC (Bld) 69.4 % 38.0 - 82.0 % [facility] Nucleated RBC/100 WBC (Bld) [Ratio] 0 % [facility] Platelet mean volume (Bld) [Entitic vol] 10.1 fL 9.0 - 12.7 fL [facility] Platelets (Bld) [#/Vol] 294 10*3/uL 140 - 440 10*3/uL [facility] RBC (Bld) [#/Vol] 3.59 10*6/uL Low 3.80 - 5.2 0 10*6/uL [facility] WBC (Bld) [#/Vol] 10.5 10*3/uL 3.6 - 10.7 10*3/uL [facility] CBC WITH AUTO DIFFERENTIALon 09-26-2024 Basophils (Bld) [#/Vol] 0.1 10*3/uL Normal 0.0-0.2 [facility] Comment on above: Performed By: #### L [id number] ####New Accounts Clerk: STAR DE LA ROSA ([id number])[facility])[address] [place] [address] Basophils/100 WBC (Bld) 1.1 % Normal 0.0-2.0 [facility] Comment on above: Performed By: #### L [id number] ####New Accounts Clerk: STAR DE LA ROSA ([id number])[facility] ([facility])[address] [place] [address] Eosinophils (Bld) [#/Vol] 0.3 10*3/uL Normal 0.0-0.5 [facility] Comment on above: Performed By: #### L [id number] ####New Accounts Clerk: STAR DE LA ROSA ([id number])[facility])[address] [place] [address] [place] Eosinophils/100 WBC (Bld) 3.0 % Normal 0.0-6.0 [facility] Comment on above: Performed By: #### L [id number] ####New Accounts Clerk: STAR DE LA ROSA ([id number])[facility])[address] [place] [address] Erythrocyte distribution width (RBC) [Ratio] 13.2 % Normal 11.5-15.0 [facility] Comment on above: Performed By: #### L [id number] ####New Accounts Clerk: STAR DE LA ROSA ([id number])[facility])[address] [place] [address] Hematocrit (Bld) [Volume fraction] 33.0 % Low 35.0-47.0 [facility] Comment on above: Performed By: #### L [id number] ####New Accounts Clerk: STAR DE LA ROSA ([id number])[address] Hemoglobin (Bld) [Mass/Vol] 11.1 g/dL Low 11.7-16.0 [facility] Comment on above: Performed By: #### L [id number] ####New Accounts Clerk: STAR DE LA ROSA ([id number])[facility])[address] [place] [address] IMMATURE GRANS % 1.7 % Normal 0.0-2.0 [facility] Comment on above: Performed By: #### L [id number] ####New Accounts Clerk: STAR DE LA ROSA ([id number])[address] IMMATURE GRANS ABSOLUTE 0.2 10*3/uL High <0.1 [facility] Comment on above: Performed By: #### L [id number] ####New Accounts Clerk: STAR DE LA ROSA ([id number])[address] Lymphocytes (Bld) [#/Vol] 1.4 10*3/uL Normal 1.0-4.3 [facility] Comment on above: Performed By: #### L [id number] ####New Accounts Clerk: STAR DE LA ROSA ([id number])[facility] ([facility])[address] [place] [address] Lymphocytes/100 WBC (Bld) 13.8 % Low 15.0-45.0 [facility] Comment on above: Performed By: #### L [id number] ####New Accounts Clerk: STAR DE LA ROSA ([id number])[facility])[address] [place] [address] MCH (RBC) [Entitic mass] 30.9 pg Normal 26.0-34.0 [facility] Comment on above: Performed By: #### L [id number] ####New Accounts Clerk: STAR DE LA ROSA ([id number])[facility])[address] [place] [address] MCHC 33.6 % Normal 30.5-36.0 [facility] Comment on above: Performed By: #### L [id number] ####New Accounts Clerk: STAR DE LA ROSA ([id number])[facility])[address] [place] [address] MCV (RBC) [Entitic vol] 91.9 fL Normal 77.0-99.0 [facility] Comment on above: Performed By: #### L [id number] ####New Accounts Clerk: STAR DE LA ROSA ([id number])[facility])[address] [place] [address] Monocytes (Bld) [#/Vol] 1.2 10*3/uL High 0.0-0.9 [facility] Comment on above: Performed By: #### L [id number] ####New Accounts Clerk: STAR DE LA ROSA ([id number])[facility])[address] [place] [address] Monocytes/100 WBC (Bld) 11.0 % Normal 5.0-13.0 [facility] Comment on above: Performed By: #### L [id number] ####New Accounts Clerk: STAR DE LA ROSA ([id number])[facility])[address] [place] [address] NEUTROPHILS ABSOLUTE 7.3 10*3/uL Normal 1.8-7.5 [facility] Comment on above: Performed By: #### L [id number] ####New Accounts Clerk: STAR DE LA ROSA ([id number])[facility])[address] [place] [address] Neutrophils/100 WBC (Bld) 69.4 % Normal 38.0-82.0 [facility] Comment on above: Performed By: #### L [id number] ####New Accounts Clerk: STAR DE LA ROSA ([id number])[facility] ([facility])[address] [place] [address] NRBC 0.0 /100 WBCs Normal 0.0-2.0 [facility] Comment on above: Performed By: #### L [id number] ####New Accounts Clerk: STAR DE LA ROSA ([id number])[facility])[address] [place] [address] Platelet mean volume (Bld) [Entitic vol] 10.1 fL Normal 9.0-12.7 [facility] Comment on above: Performed By: #### L [id number] ####New Accounts Clerk: STAR DE LA ROSA ([id number])[facility])[address] [place] [address] Platelets (Bld) [#/Vol] 294 10*3/uL Normal 140-440 [facility] Comment on above: Performed By: #### L [id number] ####New Accounts Clerk: STAR DE LA ROSA ([id number])[facility])[address] [place] [address] RBC (Bld) [#/Vol] 3.59 10*6/uL Low 3.80-5.20 [facility] Comment on above: Performed By: #### L [id number] ####New Accounts Clerk: STAR DE LA ROSA ([id number])[facility])[address] [place] [address] WBC (Bld) [#/Vol] 10.5 10*3/uL Normal 3.6-10.7 [facility] Comment on above: Performed By: #### L [id number] ####New Accounts Clerk: STAR DE LA ROSA ([id number])[facility])[address] [place] [address] Laboratory - Chemistry and C hemistry - challengeon 09-26-2024 Magnesium [Mass/Vol] 1.6 mg/dL 1.6 - 2 .6 mg/dL [facility] Laboratory - Microbiology an d Antimicrobial susceptibilityOrdered By: Mukund Fox on 09-26-2024 Bacteria identified Cx Nom (Bld) Staphylococcus epidermidis Critically abnormal [facility] Comment on above: Contamination likely unless additional blood culture sets are found to be positive with the same organism. This is an edited result. Previous organism was Gram-positive cocci on 09/24/2024 at 0802 EST. Laboratory - Microbiology an d Antimicrobial susceptibilityOrdered By: Marjorie Whittington on 09-26-2024 Bacteria identified Aer cx Nom (Lower resp) Few respiratory sena present. [facility] MAGNESIUMon 09-26-2024 Magnesium [Mass/Vol] 1.6 mg/dL Normal 1.6-2.6 [facility] Comment on above: Result Comment: KAMILLA Gill COMMENTS: Higher values can be expected in females during menses. Performed By: #### L AB15, [id number] ####New Accounts Clerk: STAR DE LA ROSA ([id number])[facility])[address] [place] [address] Magnesium [Mass/Vol]on 09-26 Interpretation and review of laboratory results Normal [facility] Higher values can be expected in females during menses. [facility] No Panel Informationon 09-26 [facility] Nursing Noteon 09-26-2024 Nursing Note Wound Care consulted for Pressure Injury Prevention. Pt's Rakan score= 18 on 09/25/2024 Pt's pressure points assessed. Pt's Heels, Buttocks/coccyx, Back, Elbows, Occiput and ears are all blanching and intact. No pressure injuries noted. Noted on assessment MASD wound to groin. Pericare provided and Zinc/Moisture Barrier ointment obtained and applied to pt. Instructed pt on pressure injury prevention and importance of turning/postioning every 2 hrs while in bed and every 15 min while sitting in chair. Pt verbalized understanding. Prevention Measures in place, including: [place] sheet with pillows in place, Bilateral) foam heel protectors obtained and applied to pt, Heels elevated off bed on pillows, Sacral foam obtained and applied to pt, Waffle chair cushion obtained for pt when up to chair. Skin Care precaution order set in place. Dietitian consult in place. PT/OT consult in place. D/W nursing staff skin assessment, preventions, and interventions implemented. Will continue to follow pt. Please Voicera for any questions or concerns. Kimmy Alexandre RN, BSN [facility] Progress Noteon 09-26-2024 Progress Note [facility] Geriatric Medicine Inpatient Consult Service Admission Date:09/23/2024 Assessment Principal Problem: Pneumonia due to organism Active Problems: Pneumonia due to infectious agent Plan Fall - mechanical fall - risk factors include: acute illness, significant polypharmacy (see recs below) - Vitamin D level within normal limits at 40 - Carbamazepine level within normal limits - check orthostatic vital signs - PT/OT as able - PT currently recommending SNF- per review of chart, plan to return to [facility] Bipolar disorder - per facility is followed by in house psych team at [facility] - see medication recommendations as below, significant polypharmacy- on several psych medications, would benefit from psychiatry input for ability to limit her pill burden Polypharmacy - Per nurse Carli at [facility] on 09/24- patient is reported to be taking the following medications: - Buspar 10mg TID- restarted - Tegretol 200mg TID- ordered here, continue - Levothyroxine 88mcg daily- change dosage to reflect home dose if appropriate - Tramadol 100mg q8hrs PRN Pain- per nursing staff consistently takes 100mg nightly at facility- can continue off for now, monitor for pain- agree with not starting at discharge as this may increase risk for seizure - Trazodone 150mg nightly- assess for need for restarting while here - Seroquel 25mg BID- recommend restarting while inpatient in setting of Bipolar disorder as above - Risperdal 0.5mg BID- recommend restarting while inpatient in setting of Bipolar disorder as above- would benefit from psychiatry input for appropriateness of continuation of both Seroquel and Risperdal mcfp - Tizanidine 2mg BID- unclear indication for this, would recommend attempts at gradual dose reduction vs changing to PRN - Pregabalin 150mg BID- restarted - Vistaril 25mg BID- OK to continue to hold at this time, 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 alternative exterminator helper termite- due to anticholinergic effects may further contribute to her fall risk - Omeprazole 40mg BID- currently on pantoprazole here - Pravastatin, Plavix 75mg daily, Folic Acid 1mg daily- have all been restarted here - Venlafaxine 37,5mg daily- assess for appropriateness of restarting, would benefit from psychiatry guidance on need for continuation at current dosing - Melatonin 10mg nightly- consider adding melatonin PRN for sleep At risk for delirium - increased risk for delirium in setting of acute illness (pna), polypharmacy, hospital environment - continue to treat underlying conditions- currently receiving IV Ceftriaxone - C.Diff and GI PCR negative - recommend delirium protocol - continue to assess and treat for pain - monitor for urinary retention/constipation - last BM today 09/26 -Avoid sedating/anticholinerg ic medications, encourage sleep hygiene, encourage family visits, optimize sensory input and access to assistive devices where indicated, encourage time up in chair as able and D/c [facility], restraints, IV lines, as able Follow-up: PRN, please page for questions Subjective: Chief Complaint: Fall Geriatrics consulted for Fall HPI- patient is known to me 74 y.o. year-old female that presented from facility for fall. Per review of H&P- patient had a witnessed mechanical fall. patient has reportedly been on oxygen for the past few days with cough and sputum production. In the ED, CXR was concerning for PNA. Started on Ceftriaxone. Creat 1.14 on admission, sodium 133. Lactic acid normal, CBC with slight leukocytosis at 11.6 Interval history: remains on 5E GI PCR and C. Diff negative WBC improved today at 10.5, Magnesium improved today 1.6, currently receiving IV Rocephin for pneumonia Patient reports she is doing ok today, appetite is good, still having some diarrhea, denies pain at this time, still coughing, she knows that she is currently at [facility] Therapy recommendations Seen by PT/OT today- both recommending SNF Review of Systems Constitutional: Positive for activity change and fatigue. Respiratory: Positive for cough. Gastrointestinal: Positive for diarrhea. Negative for constipation and nausea. Musculoskeletal: Negative for arthralgias and gait problem. Psychiatric/Behavioral : Negative for confusion. The patient is not nervous/anxious. Objective: BP 137/80 (BP Location: Right arm, Patient Position: Sitting) Pulse 86 Temp 36.3 ?C (97.4 ?F) (Temporal) Resp 16 Ht 5' 6.5" (1.689 m) Wt 182 lb 1.6 oz (82.6 kg) SpO2 95% BMI 28.95 kg/m? No intake or output data in the 24 hours ending 09/26/24 1456 Wt Readings from Last 4 Encounters: 09/25/24 182 lb 1.6 oz (82.6 kg) Current Facility-Administered Medications: acetaminophen (Tylenol) tablet 650 mg, 650 mg, Oral, q6h PRN, 650 mg at 09/26/24 1337 OR acetaminophen (Tylenol) suppository 650 mg, 650 mg, Rectal, q6h PRN, Lashon Sullivan MD busPIRone (Buspar) tablet (more content not included)... [facility] [id number] 09-25-2024 [id number] Attending wanting pt to return SNF LOC if possible, PT recommending SNF. [facility] [place] will take pt back SNF LOC. Pt is agreeable to this. Per attending, okay to star auth. No PASR needed as pt is a return to same facility. TCC tasked PT and OT to see for updated notes. TCC will follow for notes to start auth. [facility] BASIC METABOLIC PANELon 09-14 Anion gap [Moles/Vol] 8 mmol/L Normal -13 [facility] Comment on above: Performed By: #### L [id number] ####New Accounts Clerk: SOFIE BARAJAS ([id number])[facility] (SBHLAB)[address] [place] [address]#### LAB15, LAB69, [id number], [id number] ####New Accounts Clerk: STAR DE LA ROSA ([id number])[facility] (SACLAB)[address] [place] [address] Calcium [Mass/Vol] 8.9 mg/dL Normal 8.8-10.0 [facility] Comment on above: Performed By: #### L [id number] ####New Accounts Clerk: SOFIE BARAJAS ([id number])[facility] LAUR[facility] (SBHLAB)[address]#### LAB15, LAB69, [id number], [id number] ####New Accounts Clerk: STAR DE LA ROSA ([id number])[facility] (SAC[facility])[address] [place] [address] Chloride [Moles/Vol] 103 mmol/L Normal 98-107 [facility] Comment on above: Performed By: #### L [id number] ####New Accounts Clerk: SOFIE BARAJAS ([id number])[place] (SBHLAB)[address] [place] [address]#### LAB15, LAB69, [id number], [id number] ####New Accounts Clerk: STAR DE LA ROSA ([id number])[facility] (S[facility])[address] [place] [address] CO2 [Moles/Vol] 27 mmol/L Normal 23-31 [facility] Comment on above: Performed By: #### L [id number] ####New Accounts Clerk: SOFIE BARAJAS ([id number])[facility] (SBHLAB)[address] [place] [address]#### LAB15, LAB69, [id number], [id number] ####New Accounts Clerk: STAR DE LA ROSA ([id number])[facility] (SAC[facility])[address] [place] [address] Creatinine [Mass/Vol] 0.65 mg/dL Normal 0.57-1.11 [facility] Comment on above: Performed By: #### L [id number] ####New Accounts Clerk: SOFIE BARAJAS ([id number])[place] (SBHLAB)[address] [place] [address]#### LAB15, LAB69, [id number], [id number] ####New Accounts Clerk: STAR DE LA ROSA ([phone])[facility] ([facility])[address] [place] [address] GLOMERULAR FILTRATION RATE ML/MIN/1.73 SQ M.PREDICTED >90.0 Normal >60.0 [facility] Comment on above: Result Comment: Calc ulation based on the Chronic Kidney Disease Epidemiology Collaboration (CKD-EPI) equation refit without adjustment for race Performed By: #### L [id number] ####New Accounts Clerk: SOFIE BARAJAS ([id number])[place] (SBHLAB)[address] [place] [address]#### LAB15, LAB69, [id number], [id number] ####New Accounts Clerk: STAR DE LA ROSA ([phone])[facility] ([facility])[address] [place] [address] Glucose [Mass/Vol] 99 mg/dL Normal 82-115 [facility] Comment on above: Performed By: #### L [id number] ####New Accounts Clerk: SOFIE BARAJAS ([id number])[place] (SBHLAB)[address] [place] [address]#### LAB15, LAB69, [id number], [id number] ####New Accounts Clerk: STAR DE LA ROSA ([id number])[facility] ([facility])[address] [place] [address] Potassium [Moles/Vol] 3.5 mmol/L Normal 3.5-5.1 [facility] Comment on above: Result Comment: [facility] potassium values may be up to 0.5 mmol/L lower than serum values. Performed By: #### L [id number] ####New Accounts Clerk: SOFIE BARAJAS ([phone])[place] (HLAB)[address] [place] [address]#### LAB15, LAB69, [id number], [id number] ####New Accounts Clerk: STAR DE LA ROSA ([phone])[facility] ([facility])[address] [place] [address] Sodium [Moles/Vol] 138 mmol/L Normal 136-145 [facility] Comment on above: Performed By: #### L [id number] ####New Accounts Clerk: SOFIE BARAJAS ([id number])[place] (SBHLAB)[address] [place] [address]#### LAB15, LAB69, [id number], [id number] ####New Accounts Clerk: STAR DE LA ROSA ([id number])[facility] ([facility])[address] [place] [address] Urea nitrogen [Mass/Vol] 9 mg/dL Normal 9-23 [facility] Comment on above: Performed By: #### L [id number] ####New Accounts Clerk: SOFEI BARAJAS ([id number])[place] (SBHLAB)[address] [place] [address]#### LAB15, LAB69, [id number], [id number] ####New Accounts Clerk: STAR DE LA ROSA ([id number])[facility] ([facility])[address] [place] [address] Basic metabolic 1998 panelon 09-25-2024 Anion gap [Moles/Vol] 8 mmol/L 3 - 13 mmol/L [facility] Calcium [Mass/Vol] 8.9 mg/dL 8.8 - 10. 0 mg/dL [facility] Chloride [Moles/Vol] 103 mmol/L 98 - 10 7 mmol/L [facility] CO2 [Moles/Vol] 27 mmol/L 23 - 31 mmol/L [facility] Creatinine [Mass/Vol] 0.65 mg/dL 0.57 - 1.11 mg/dL [facility] GFR/1.73 sq M.predicted (S/P/Bld) [Vol rate/Area] - PINF [facility] Comment on above: Calculation based on the Chronic Kidney Disease Epidemiology Collaboration (CKD-EPI) equation refit without adjustment for race Glucose [Mass/Vol] 99 mg/dL 82 - 115 mg/dL [facility] Interpretation and review of laboratory results Normal [facility] Potassium [Moles/Vol] 3.5 mmol/L 3.5 - 5.1 mmol/L [facility] Comment on above: Plasma potassium holland ues may be up to 0.5 mmol/L lower than serum values. Sodium [Moles/Vol] 138 mmol/L 136 - 145 mmol/L [facility] Urea nitrogen [Mass/Vol] 9 mg/dL 9 - 23 mg/dL [facility] C. DIFFICILE BY PCR WITH REF NICK TO EIAon 09-25-2024 C. DIFFICILE BY PCR WITH REFLEX TO EIA C. DIFFICILE TOXIN PCR Reference Not Detected Not Detected ORDER COMMENTS: C. difficile infection is unlikely to be present. Methodology: Real-time PCR [facility] Comment on above: Performed By: #### L [id number], [id number] ####New Accounts Clerk: STAR DE LA ROSA ([id number])[facility] ([address] C. difficile toxin genes KAMLA +probe Ql (Stl)on 09-25-2024 C. difficile toxin B tcdB gene KAMLA+probe Ql (Stl) Not detected Not Detected [facility] Interpretation and review of laboratory results Normal [facility] C. difficile infecti on is unlikely to be present. Methodology: Real-time PCR [facility] CBC W Auto Differential pane l (Bld)on 09-25-2024 Basophils (Bld) [#/Vol] 0.1 10*3/uL 0.0 - 0.2 10*3/uL [facility] Basophils/100 WBC (Bld) 0.5 % 0.0 - 2.0 % [facility] Eosinophils (Bld) [#/Vol] 0.2 10*3/uL 0.0 - 0.5 10*3/uL [facility] Eosinophils/100 WBC (Bld) 1.7 % 0.0 - 6.0 % [facility] Erythrocyte distribution width (RBC) [Ratio] 12.8 % 11.5 - 15.0 % [facility] Hematocrit (Bld) [Volume fraction] 34.6 % Low 35.0 - 47.0 % [facility] Hemoglobin (Bld) [Mass/Vol] 11 g/dL Low 11.7 - 16.0 g/dL [facility] Immature granulocytes (Bld) [#/Vol] 0.1 10*3/uL High NINF - 0.1 10*3/uL [facility] Immature granulocytes/100 WBC (Bld) 0.7 % 0.0 - 2.0 % [facility] [employer] Interpretation and review of laboratory results Abnormal [facility] [employer] Lymphocytes (Bld) [#/Vol] 1.3 10*3/uL 1.0 - 4.3 10*3/uL [facility] [employer] Lymphocytes/100 WBC (Bld) 11.1 % Low 15.0 - 45.0 % [facility] [employer] MCH (RBC) [Entitic mass] 30.2 pg 26.0 - 34.0 pg [facility] [employer] MCHC (RBC) [Mass/Vol] 31.8 % 30.5 - 36.0 % [facility] [employer] MCV (RBC) [Entitic vol] 95.1 fL 77.0 - 99.0 fL [facility] [employer] Monocytes (Bld) [#/Vol] 1.2 10*3/uL High 0.0 - 0.9 10*3/uL [facility] Monocytes/100 WBC (Bld) 9.7 % 5.0 - 13.0 % [facility] [employer] Neutrophils (Bld) [#/Vol] 9.2 10*3/uL High 1.8 - 7.5 10*3/uL [facility] [employer] Neutrophils/100 WBC (Bld) 76.3 % 38.0 - 82.0 % [facility] [employer] Nucleated RBC/100 WBC (Bld) [Ratio] 0 % [facility] [employer] Platelet mean volume (Bld) [Entitic vol] 10.3 fL 9.0 - 12.7 fL [facility] [employer] Platelets (Bld) [#/Vol] 246 10*3/uL 140 - 440 10*3/uL [facility] RBC (Bld) [#/Vol] 3.64 10*6/uL Low 3.80 - 5.2 0 10*6/uL [facility] WBC (Bld) [#/Vol] 12 10*3/uL High 3.6 - 10.7 10*3/uL [facility] CBC WITH AUTO DIFFERENTIALon 09-25-2024 Basophils (Bld) [#/Vol] 0.1 10*3/uL Normal 0.0-0.2 [facility] Comment on above: Performed By: #### L [id number] ####New Accounts Clerk: STAR DE LA ROSA ([id number])[facility] ([address] Basophils/100 WBC (Bld) 0.5 % Normal 0.0-2.0 [facility] Comment on above: Performed By: #### L [id number] ####New Accounts Clerk: STAR DE LA ROSA ([id number])[facility])[address] [place] [address] Eosinophils (Bld) [#/Vol] 0.2 10*3/uL Normal 0.0-0.5 [facility] Comment on above: Performed By: #### L [id number] ####New Accounts Clerk: STAR DE LA ROSA ([id number])[facility])[address] [place] [address] Eosinophils/100 WBC (Bld) 1.7 % Normal 0.0-6.0 [facility] Comment on above: Performed By: #### L [id number] ####New Accounts Clerk: STAR DE LA ROSA ([id number])[facility])[address] [place] [address] Erythrocyte distribution width (RBC) [Ratio] 12.8 % Normal 11.5-15.0 [facility] Comment on above: Performed By: #### L [id number] ####New Accounts Clerk: STAR DE LA ROSA ([id number])[facility])[address] [place] [address] Hematocrit (Bld) [Volume fraction] 34.6 % Low 35.0-47.0 [facility] Comment on above: Performed By: #### L [id number] ####New Accounts Clerk: STAR DE LA ROSA ([id number])[facility])[address] [place] [address] Hemoglobin (Bld) [Mass/Vol] 11.0 g/dL Low 11.7-16.0 [facility] Comment on above: Performed By: #### L [id number] ####New Accounts Clerk: STAR DE LA ROSA ([phone])[facility])[address] [place] [address] IMMATURE GRANS % 0.7 % Normal 0.0-2.0 [facility] Comment on above: Performed By: #### L [id number] ####New Accounts Clerk: STAR DE LA ROSA ([phone])[facility])[address] [place] [address] IMMATURE GRANS ABSOLUTE 0.1 10*3/uL High <0.1 [facility] Comment on above: Performed By: #### L [id number] ####New Accounts Clerk: STAR DE LA ROSA ([id number])[facility])[address] [place] [address] Lymphocytes (Bld) [#/Vol] 1.3 10*3/uL Normal 1.0-4.3 [facility] Comment on above: Performed By: #### L [id number] ####New Accounts Clerk: STAR DEL A ROSA ([id number])[address] Lymphocytes/100 WBC (Bld) 11.1 % Low 15.0-45.0 [facility] Comment on above: Performed By: #### L [id number] ####New Accounts Clerk: STAR DE LA ROSA ([phone])[facility])[address] [place] [address] MCH (RBC) [Entitic mass] 30.2 pg Normal 26.0-34.0 [facility] Comment on above: Performed By: #### L [id number] ####New Accounts Clerk: STAR DE LA ROSA ([id number])[address] MCHC 31.8 % Normal 30.5-36.0 [facility] Comment on above: Performed By: #### L [id number] ####New Accounts Clerk: STAR DE LA ROSA ([id number])[address] MCV (RBC) [Entitic vol] 95.1 fL Normal 77.0-99.0 [facility] Comment on above: Performed By: #### L [id number] ####New Accounts Clerk: STAR [id number])[facility] ([facility])[address] [place] [address] [place] Monocytes (Bld) [#/Vol] 1.2 10*3/uL High 0.0-0.9 [facility] Comment on above: Performed By: #### L [id number] ####New Accounts Clerk: STAR DE LA ROSA ([id number])[facility] ([facility])[address] [place] [address] Monocytes/100 WBC (Bld) 9.7 % Normal 5.0-13.0 [facility] Comment on above: Performed By: #### L [id number] ####New Accounts Clerk: STAR DE LA ROSA ([phone])[facility])[address] [place] [address] NEUTROPHILS ABSOLUTE 9.2 10*3/uL High 1.8-7.5 [facility] Comment on above: Performed By: #### L [id number] ####New Accounts Clerk: STAR DE LA ROSA ([id number])[facility] ([facility])[address] [place] [address] Neutrophils/100 WBC (Bld) 76.3 % Normal 38.0-82.0 [facility] Comment on above: Performed By: #### L [id number] ####New Accounts Clerk: STAR DE LA ROSA ([id number])[facility] ([facility])[address] [place] [address] NRBC 0.0 /100 WBCs Normal 0.0-2.0 [facility] Comment on above: Performed By: #### L [id number] ####New Accounts Clerk: STAR DE LA ROSA ([id number])[facility] ([facility])[address] [place] [address] Platelet mean volume (Bld) [Entitic vol] 10.3 fL Normal 9.0-12.7 [facility] Comment on above: Performed By: #### L [id number] ####New Accounts Clerk: STAR DE LA ROSA ([id number])[facility] ([facility])[address] [place] [address] [place] Platelets (Bld) [#/Vol] 246 10*3/uL Normal 140-440 [facility] Comment on above: Performed By: #### L [id number] ####New Accounts Clerk: STAR DE LA ROSA ([id number])[facility] ([facility])[address] [place] [address] RBC (Bld) [#/Vol] 3.64 10*6/uL Low 3.80-5.20 [facility] Comment on above: Performed By: #### L [id number] ####New Accounts Clerk: STAR DE LA ROSA ([phone])[facility] ([facility])[address] [place] [address] WBC (Bld) [#/Vol] 12.0 10*3/uL High 3.6-10.7 [facility] Comment on above: Performed By: #### L [id number] ####New Accounts Clerk: STAR DE LA ROSA ([id number])[facility] ([facility])[address] [place] [address] Cobalamin (Vitamin B12) [Mas s/Vol]on 09-25-2024 Interpretation and review of laboratory results Normal [facility] FOLATEon 09-25-2024 FOLATE RESULT 16.3 ng/mL Normal 7.0-31.4 [facility] Comment on above: Performed By: #### L [id number] ####New Accounts Clerk: SOFIE BARAJAS ([id number])[facility] ([facility])[address] [place] [address]#### LAB15, LAB69, [id number], [id number] ####New Accounts Clerk: STAR DE LA ROSA ([phone])[facility] ([facility] [place] [address] Folate [Mass/Vol]on 09-25-19 Interpretation and review of laboratory results Normal [facility] GASTROINTESTINAL PCR PANELon 09-25-2024 GASTROINTESTINAL PCR PANEL CAMPYLOBACTER Reference Not Detected Not Detected PLESIOMONAS SHIGELLOIDES Reference Not Detected Not Detected SALMONELLA Reference Not Detected Not Detected VIBRIO SPECIES Reference Not Detected Not Detected VIBRIO CHOLERAE Reference Not Detected Not Detected YERSINIA ENTEROCOLITICA Reference Not Detected Not Detected ENTEROTOXIGENIC E COLI (ETEC) Reference Not Detected Not Detected SHIGA TOXIN-PRODUCING E COLI (STEC) Reference Not Detected Not Detected SHIGELLA/ENTEROINVASIV E E COLI (EIEC) Reference Not Detected Not Detected CRYPTOSPORIDIUM Reference Not Detected Not Detected CYCLOSPORA CAYETANENSIS Reference Not Detected Not Detected ENTAMOEBA HISTOLYTICA Reference Not Detected Not Detected GIARDIA LAMBLIA Reference Not Detected Not Detected ADENOVIRUS F 40/41 Reference Not Detected Not Detected ASTROVIRUS Reference Not Detected Not Detected NOROVIRUS GI/GII Reference Not Detected Not Detected ROTAVIRUS A Reference Not Detected Not Detected SAPOVIRUS Reference Not Detected Not Detected ORDER COMMENTS: A positive Norovirus result on the Film Array GI panel should be interpreted in the context of the patient's history and clinical picture. If results are not consistent, result should be confirmed with a Norovirus specific assay. Methodology: Multiplex PCR Normal [facility] Comment on above: Performed By: #### L [id number], [id number] ####New Accounts Clerk: STAR DE LA ROSA ([id number])[facility] ([address] Gastrointestinal pathogens p perry KAMLA+probe (Stl)Ordered By: Delia Diez on 09-25-2024 Adenovirus F 40/41 Not detected Not Detected [facility] Astrovirus Not detected Not Detected [facility] Campylobacter Not detected Not Detected [facility] Cryptosporidium Not detected Not Detected [facility] Cyclospora cayetanensis Not detected Not Detect ed [facility] Entamoeba histolytica Not detected Not Detected [facility] Enterotoxigenic E coli (ETEC) Not detected Not Detected [facility] Giardia lamblia Not detected Not Detected [facility] Interpretation and review of laboratory results Normal [facility] Norovirus GI/GII Not detected Not Detected [facility] Plesiomonas shigelloides Not detected Not Detected [facility] Rotavirus A Not detected Not Detected [facility] Salmonella Not detected Not Detected [facility] Sapovirus Not detected Not Detected [facility] Shiga toxin-producing E coli (STEC) Not detected Not Detected [facility] Shigella/Enteroinvasive E coli (EIEC) Not detected Not Detected [facility] Vibrio cholerae Not detected Not Detected [facility] Vibrio species Not detected Not Detected [facility] Yersinia enterocolitica Not detected Not Detect ed [facility] A positive Norovirus result on the Film Array GI panel should be interpreted in the context of the patient's history and clinical picture. If results are not consistent, result should be confirmed with a Norovirus specific assay. Methodology: Multiplex PCR [facility] Laboratory - Chemistry and C hemistry - challengeon 09-25-2024 Cobalamin (Vitamin B12) [Mass/Vol] 602 pg/mL 213 - 816 pg/mL [facility] Folate [Mass/Vol] 16.3 ng/mL 7.0 - 31.4 ng/mL [facility] TSH Qn 0.57 m[IU]/L [facility] Magnesium [Mass/Vol] 1.5 mg/dL Low 1.6 - 2 .6 mg/dL [facility] - Drug toxicology on 09-25-2024 carBAMazepine [Mass/Vol] 11.6 ug/mL 4.0 - 12.0 ug/mL [facility] - Microbiology an d Antimicrobial susceptibilityon 09-25-2024 M. pneumoniae IgM IA Qn (S) 0.29 U/L NINF - 0.76 U/L [facility] Comment on above: INTERPRETIVE INFORMA TION: Mycoplasma pneumoniae Ab, IgM 0.76 U/L or less .......... Negative: No clinically significant amount of M. pneumoniae IgM antibody detected. 0.77 - 0.95 U/L ........... Low Positive: M. pneumoniae- specific IgM presumptively detected. Collection of a follow-up sample in 1-2 weeks is recommended to assure reactivity. 0.96 U/L or greater ....... Positive: Highly significant amount of M. pneumoniae- specific IgM antibody detected. However, low levels of IgM antibodies may occasionally persist for more than 12 months post-infection. Performed By: [employer] [address] [place] [id number] New Car Salesperson: Troy Bateman MD, PhD CLIA Number: [id number] MAGNESIUMon 09-25-2024 Magnesium [Mass/Vol] 1.5 mg/dL Low 1.6-2.6 [facility] Comment on above: Result Comment: KAMILLA R COMMENTS: Higher values can be expected in females during menses. Performed By: #### L [id number] ####New Accounts Clerk: SOFIE BARAJAS ([id number])[facility] ([facility])[address] [place] [address] [place]#### LAB15, LAB69, [id number], [id number] ####New Accounts Clerk: STAR DE LA ROSA ([id number])[facility] ([facility])[address] Magnesium [Mass/Vol]on 09-25 Interpretation and review of laboratory results Abnormal [facility] Higher values can be expected in females during menses. [facility] No Panel Informationon 09-25 [facility] Interpretation and review of laboratory results Normal [facility] Carbamazepine concentrations above 15 ug/mL are often associated with toxicity [facility] Progress Noteon 09-25-2024 Progress Note [facility] Geriatric Medicine Inpatient Consult Service Admission Date:09/23/2024 Assessment Principal Problem: Pneumonia due to organism Active Problems: Pneumonia due to infectious agent Plan Fall - mechanical fall - risk factors include: acute illness, significant polypharmacy (see recs below) - Vitamin D level within normal limits at 40 - Carbamazepine level within normal limits - check orthostatic vital signs - PT/OT as able - PT currently recommending SNF Bipolar disorder - per facility is followed by in house psych team at [facility] - see medication recommendations as below, significant polypharmacy- on several psych medications, would benefit from psychiatry input for ability to limit her pill burden Hypothyroidism - TSH within normal limits - per facility her TENTER dose of Levothyroxine is 88mcg, currently ordered 75mcg, please adjust dose if appropriate- defer management to primary team Polypharmacy - I personally called and spoke with nurse Boyce at [facility] on 09/24 to review medications- reported to be taking the following medications: - Buspar 10mg TID- restarted - Tegretol 200mg TID- ordered here, continue- carbamazepine level within normal range as above - Levothyroxine 88mcg daily- change dosage if appropriate as above - Tramadol 100mg q8hrs PRN Pain- per nursing staff consistently takes 100mg nightly at facility- can continue off for now, monitor for pain- agree with not starting at discharge as this may increase risk for seizure - Trazodone 150mg nightly- assess for need for restarting while here - Seroquel 25mg BID- recommend restarting while inpatient in setting of Bipolar disorder as above - Risperdal 0.5mg BID- recommend restarting while inpatient in setting of Bipolar disorder as above- would benefit from psychiatry input for appropriateness of continuation of both Seroquel and Risperdal mcfp - Tizanidine 2mg BID- unclear indication for this, would recommend attempts at gradual dose reduction vs changing to PRN - Pregabalin 150mg BID- restarted - Vistaril 25mg BID- OK to continue to hold at this time, 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 alternative mcfp- due to anticholinergic effects may further contribute to her fall risk - Omeprazole 40mg BID- currently on pantoprazole here - Pravastatin- has been restarted here - Plavix 75mg daily- has been restarted here - Folic Acid 1mg daily- has been restarted here - takes potassium supplementation at facility- assess for need for restarting/continuatio n while here - Venlafaxine 37,5mg daily- assess for appropriateness of restarting, would benefit from psychiatry guidance on need for continuation at current dosing - Melatonin 10mg nightly- consider adding melatonin PRN for sleep At risk for delirium - increased risk for delirium in setting of acute illness (pna), polypharmacy, hospital environment - continue to treat underlying conditions- currently receiving IV Ceftriaxone - C.Diff and GI PCR pending - recommend delirium protocol - continue to assess and treat for pain - monitor for urinary retention/constipation -Avoid sedating/anticholinerg ic medications, encourage sleep hygiene, encourage family visits, optimize sensory input and access to assistive devices where indicated, encourage time up in chair as able and D/c [facility], restraints, IV lines, as able Follow-up: 1-2 days as needed Subjective: Chief Complaint: Fall Geriatrics consulted for Fall HPI- patient is known to me 74 y.o. year-old female that presented from facility for fall. Per review of H&P- patient had a witnessed mechanical fall. patient has reportedly been on oxygen for the past few days with cough and sputum production. In the ED, CXR was concerning for PNA. Started on Ceftriaxone. Creat 1.14 on admission, sodium 133. Lactic acid normal, CBC with slight leukocytosis at 11.6 Interval history: remains on 5E GI PCR and C. Diff pending, currently receiving IV Rocephin for pneumonia Patient resting at time of visit, limited participation with exam, wants to rest- reports having coughing, slept well overnight, no reported pain Therapy recommendations Seen by PT/OT today- both recommending SNF Review of Systems Constitutional: Positive for activity change and fatigue. Respiratory: Positive for cough. Musculoskeletal: Negative for arthralgias and gait problem. Psychiatric/Behavioral : Negative for confusion. The patient is not nervous/anxious. Objective: BP 136/64 (BP Location: Right arm, Patient Position: Sitting) Pulse 80 Temp 36.7 ?C (98 ?F) (Temporal) Resp 18 Ht 5' 7" (1.702 m) Wt 180 lb (81.6 kg) SpO2 95% BMI 28.19 kg/m? Intake/Output Summary (Last 24 hours) at 09/25/2024 1537 Last data filed at 09/25/2024 1259 Gross per 24 hour Intake 150 ml Output -- Net 150 ml Wt Readings from Last 4 Encounters: 09/23/24 180 lb (81.6 kg) Current Facil (more content not included)... Normal [facility] Progress Note PHYSICAL THERAPY [facility] Treatment Note Name/MRN: Andre Blanca ([id number]) Date of : 1950 Age: 74 y.o. Room/Bed: E5-515/E5-515 A Discharge Recommendation: Custodial Facility Equipment Needed: No Prior Level of Function Prior Level of ADL Function: Independent Prior Level of Mobility: Independent; Device: Rollator Prior Level of Transfers: Independent Assessment Pt demo some improved mobility but still below baseline. She demo bed mobility SBA, transfers to FWW CGA-min A, ambulation with FWW and CGA-min A. She is limited by endurance but SpO2 WFL. She would benefit from SNF to promote mobility and endurance Subjective Per RN pt okay for therapy, is pleasant and agree to PT, wanting to get cleaned up Pain: Pt denies any current pain. Medical Precautions: Enhanced Contact, Droplet Proper PPE donned/doffed in accordance with facility standards. Fall Risk: Marinelli Fall Risk Score: 100 (High Risk) Precautions/Restrictio ns: Lines/Drains/Airways: 4L O2 Overall Cognitive Status: WFL Overall Orientation Status: Oriented x4 Family/Caregiver Present: none Objective Bed Mobility Supine to sit: SBA, Pt denies dizziness. She demo bed mobility SBA with bed rails and increased time. Increased SOB Sit to supine: SBA Transfers/Mobility Sit to stand: Contact Guard, Min Assist, Pt transfer to FWW from bed x3 trials, from toilet x1 with min A progress to CGA. Therapist assist with kanwal care at bed and again at toilet. She stands ~2 min each time with SBA. She demo decreased eccentric control to sit require Ruby Stand to sit: Min Assist Device(s) used: Front wheeled walker Ambulation Ambulation 1 Assistive device(s) used: Front wheeled walker Assist level: Contact Guard, Min Assist, Pt ambulate with FWW and CGA with 1 instance min A at LOB at sink. She demo short shuffling gait. Therapist cues for upright trunk/head, walker management and energy conservation, cues for pursed lip breathing and paced breathing. 1 LOB at sink, cues for walker management in tight spaces and provide min A at belt to correct. Pt limited by SOB, endurance. SPO2 94%-97% and HR 100-120 with mobility. Post ambulation instructed pt on pursed lip breathing with sniffing cue for diaphragmatic activation. She complete ~2 min while seated EOB and reports improved SOB Distance (ft): ~20ft x2 Quality of gait: No LOB, reciprocal stepping, shuffling, slow eugenia Plan Continue acute PT per plan of care. Safety/Education Safety Safety Devices in place: All fall risk precautions in place, call light within reach, left in bed, bed alarm in place, gait belt, patient at risk for falls, and nurse notified Restraints: No Education Education Given To: patient Education Provided: PT Role, PT Goals, Gait Training, Plan of Care, Precautions, Transfer Training, Energy Conservation, Equipment, Fall Prevention Education, Discharge Recommendations, Benefits of Increasing Activity, and Breathing Techniques Education Method: Verbal and Demonstration Barriers to Learning: None Education Outcome: Verbalized Understanding, Demonstrated Understanding, and Continued Education Needed Outcome Measures AM-PAC AM-PAC Inpatient Mobility Raw Score (No Stairs) : 15 JH-HLM Goals Patient Stated Goal: to return to ECF; decreased dyspnea with mobility Encounter Problems Encounter Problems (Active) Balance Patient will maintain dynamic standing balance for 5 minutes with modified independence in order to demonstrate decreased risk of falling. (Progressing) Start: 09/24/24 Expected End: 10/08/24 Mobility Patient will ambulate 100 feet with modified independence and rolling walker in order to improve safety and independence with mobility. (Progressing) Start: 09/24/24 Expected End: 10/08/24 Pain - Adult Transfers Patient will perform bed mobility with modified independence in order to improve independence and prepare for out of bed mobility. (Progressing) Start: 09/24/24 Expected End: 10/08/24 Patient will complete functional transfer with rolling walker with modified independence in order to prepare for ambulation. (Progressing) Start: 09/24/24 Expected End: 10/08/24 Therapy Time Individual Co-treatment Time In 1323 Time Out 1347 Minutes 24 Timed Code Treatment Minutes: 23 Minutes (ther act x1, gait x1) Walter Bermeo, VIN Normal [facility] Progress Note .Nutrition rescreen completed. Patient referred to the Dietitian. Poor po intake.TESSIE Sanchez Normal [facility] THYROID STIMULATING HORMONEo n 09-25-2024 THYROID STIMULATING HORMONE 0.57 uIU/mL Normal 0.35-4.94 [facility] Comment on above: Performed By: #### L [id number] ####New Accounts Clerk: SOFIE BARAJAS ([id number])[place] ([facility])[address] [place] [address]#### LAB15, LAB69, [id number], [id number] ####New Accounts Clerk: STAR DE LA ROSA ([id number])[facility] ([facility])[address] [place] [address] TSH Qnon 09-25-2024 Interpretation and review of laboratory results Normal [facility] VITAMIN B12on 09-25-2024 Cobalamin (Vitamin B12) [Mass/Vol] 602 pg/mL Normal 213-816 [facility] Comment on above: Performed By: #### L [id number] ####New Accounts Clerk: SOFIE BARAJAS ([id number])[place] ([facility])[address] [place] [address]#### LAB15, LAB69, [id number], [id number] ####New Accounts Clerk: STAR DE LA ROSA ([id number])[facility] ([facility])[address] [place] [address] 25-hydroxyvitamin D3 [Mass/V ol]on 09-24-2024 Interpretation and review of laboratory results Normal [facility] Target concentration : 30 - 40 ng/mL; toxicity seen at concentrations >100 ng/mL Therapy is based on measurement of Total 25-OHD with the following classification levels: Less than 20 ng/mL: Indicative of Vit D deficiency 20-30 ng/mL: Suggests Vit D insufficiency Optimal: Greater than or equal to 30 ng/mL Test performed by [employer] Competitive Immunoassay, measuring Total Vitamin D, not individual fractions. [facility] 30on 09-24-2024 30 Problem: Pain - Adul t Goal: Verbalizes/displays adequate comfort level or baseline comfort level Outcome: Progressing Problem: Safety - Adult Goal: Free from fall injury Outcome: Progressing Problem: Knowledge Deficit Goal: Patient/family/caregiv er demonstrates understanding of disease process, treatment plan, medications, and discharge instructions Outcome: Progressing Problem: Potential for Compromised Skin Integrity Goal: Skin Integrity is Maintained or Improved Outcome: Progressing Goal: Nutritional status is improving Outcome: Progressing Problem: Urinary Incontinence Goal: Perineal skin integrity is maintained or improved Outcome: Progressing Normal [facility] 30 Problem: Pain - Adul t Goal: Verbalizes/displays adequate comfort level or baseline comfort level Outcome: Progressing Problem: Safety - Adult Goal: Free from fall injury Outcome: Progressing Problem: Knowledge Deficit Goal: Patient/family/caregiv er demonstrates understanding of disease process, treatment plan, medications, and discharge instructions Outcome: Progressing Normal [facility] [id number] 09-24-2024 [id number] TCC completed chart review. 1 blood culture positive and 1 in process, will follow. PO azithromycin and IV rocephin. 3 L of O2-baseline from facility. Wound care consulted. Geriatrics consulted. PT and OT evals pending. Stool studies ordered, GI and c-diff rule out now. Pt is from [place] [facility]. TCC spoke to pt at bedside, she is agreeable to return. TCC spoke to son Giana via phone call to update of DC plan. TCC tasked HOT SAW OPERATOR to make a [facility] return referral. TCC will follow for facility response. Normal [facility] BLOOD TYPE AND SCREEN GELon 09-24-2024 ABO GROUPING O Normal [facility] Comment on above: Order Comment: Don't collect this lab until patient identity is updated. Performed By: #### L [id number] ####New Accounts Clerk: STAR DE LA ROSA ([id number])[facility] ([facility])[address] [place] [address] RH TYPE IN BLOOD Positive Normal [facility] Comment on above: Order Comment: Don't collect this lab until patient identity is updated. Performed By: #### L [id number] ####New Accounts Clerk: STAR DE LA ROSA ([id number])[facility] ([facility])[address] [place] [address] Blood type and Crossmatch pa bita (Bld)on 09-24-2024 ABO group Nom (Bld) O [facility] Blood group antibody screen GEL Ql Negative [facility] D Ag Ql (RBC) Positive [facility] CARBAMAZEPINEon 09-24-2024 CARBAMAZEPINE 11.6 ug/mL Normal 4.0-12.0 [facility] Comment on above: Result Comment: KAMILLA R COMMENTS: Use existing specimen Carbamazepine concentrations above 15 ug/mL are often associated with toxicity Performed By: #### L [id number], [id number] ####New Accounts Clerk: STAR DE LA ROSA ([id number])[facility] ([facility])[address] [place] [address] CBC W Auto Differential pane l (Bld)on 09-24-2024 Basophils (Bld) [#/Vol] 0 10*3/uL 0.0 - 0.2 10*3/uL [facility] Basophils/100 WBC (Bld) 0.3 % 0.0 - 2.0 % [facility] Eosinophils (Bld) [#/Vol] 0.1 10*3/uL 0.0 - 0.5 10*3/uL [facility] Eosinophils/100 WBC (Bld) 0.4 % 0.0 - 6.0 % [facility] Erythrocyte distribution width (RBC) [Ratio] 12.9 % 11.5 - 15.0 % [facility] Hematocrit (Bld) [Volume fraction] 33.3 % Low 35.0 - 47.0 % [facility] [employer] Hemoglobin (Bld) [Mass/Vol] 11 g/dL Low 11.7 - 16.0 g/dL [facility] [employer] Immature granulocytes (Bld) [#/Vol] 0.1 10*3/uL High NINF - 0.1 10*3/uL [facility] Immature granulocytes/100 WBC (Bld) 0.5 % 0.0 - 2.0 % [facility] Interpretation and review of laboratory results Abnormal [facility] [employer] Lymphocytes (Bld) [#/Vol] 0.9 10*3/uL Low 1.0 - 4.3 10*3/uL [facility] Lymphocytes/100 WBC (Bld) 7.7 % Low 15.0 - 45.0 % [facility] MCH (RBC) [Entitic mass] 30.5 pg 26.0 - 34.0 pg [facility] [employer] MCHC (RBC) [Mass/Vol] 33 % 30.5 - 36.0 % [facility] MCV (RBC) [Entitic vol] 92.2 fL 77.0 - 99.0 fL [facility] [employer] Monocytes (Bld) [#/Vol] 0.9 10*3/uL 0.0 - 0.9 10*3/uL [facility] [employer] Monocytes/100 WBC (Bld) 7.9 % 5.0 - 13.0 % [facility] [employer] Neutrophils (Bld) [#/Vol] 9.8 10*3/uL High 1.8 - 7.5 10*3/uL [facility] Neutrophils/100 WBC (Bld) 83.2 % High 38.0 - 82.0 % [facility] [employer] Nucleated RBC/100 WBC (Bld) [Ratio] 0 % [facility] [employer] Platelet mean volume (Bld) [Entitic vol] 10.3 fL 9.0 - 12.7 fL [facility] [employer] Platelets (Bld) [#/Vol] 220 10*3/uL 140 - 440 10*3/uL [facility] RBC (Bld) [#/Vol] 3.61 10*6/uL Low 3.80 - 5.2 0 10*6/uL [facility] WBC (Bld) [#/Vol] 11.8 10*3/uL High 3.6 - 10.7 10*3/uL [facility] CBC WITH AUTO DIFFERENTIALon 09-24-2024 Basophils (Bld) [#/Vol] 0.0 10*3/uL Normal 0.0-0.2 [facility] Comment on above: Performed By: #### L [id number] ####New Accounts Clerk: STAR DE LA ROSA ([phone])[facility] ([facility])[address] [place] [address] Basophils/100 WBC (Bld) 0.3 % Normal 0.0-2.0 [facility] Comment on above: Performed By: #### L [id number] ####New Accounts Clerk: STAR DE LA ROSA ([id number])[facility] ([facility])[address] [place] [address] Eosinophils (Bld) [#/Vol] 0.1 10*3/uL Normal 0.0-0.5 [facility] Comment on above: Performed By: #### L [id number] ####New Accounts Clerk: STAR DE LA ROSA ([phone])[facility] ([facility])[address] [place] [address] [place] Eosinophils/100 WBC (Bld) 0.4 % Normal 0.0-6.0 [facility] Comment on above: Performed By: #### L [id number] ####New Accounts Clerk: STAR DE LA ROSA ([phone])[facility])[address] [place] [address] Erythrocyte distribution width (RBC) [Ratio] 12.9 % Normal 11.5-15.0 [facility] Comment on above: Performed By: #### L [id number] ####New Accounts Clerk: STAR DE LA ROSA ([id number])[facility] ([facility])[address] [place] [address] Hematocrit (Bld) [Volume fraction] 33.3 % Low 35.0-47.0 [facility] Comment on above: Performed By: #### L [id number] ####New Accounts Clerk: STAR DE LA ROSA ([id number])[facility])[address] [place] [address] [place] Hemoglobin (Bld) [Mass/Vol] 11.0 g/dL Low 11.7-16.0 [facility] Comment on above: Performed By: #### L [id number] ####New Accounts Clerk: STAR DE LA ROSA ([id number])[facility])[address] [place] [address] IMMATURE GRANS % 0.5 % Normal 0.0-2.0 [facility] Comment on above: Performed By: #### L [id number] ####New Accounts Clerk: STAR DE LA ROSA ([id number])[facility])[address] [place] [address] IMMATURE GRANS ABSOLUTE 0.1 10*3/uL High <0.1 [facility] Comment on above: Performed By: #### L [id number] ####New Accounts Clerk: STAR DE LA ROSA ([id number])[address] Lymphocytes (Bld) [#/Vol] 0.9 10*3/uL Low 1.0-4.3 [facility] Comment on above: Performed By: #### L [id number] ####New Accounts Clerk: STAR DE LA ROSA ([id number])[address] Lymphocytes/100 WBC (Bld) 7.7 % Low 15.0-45.0 [facility] Comment on above: Performed By: #### L [id number] ####New Accounts Clerk: STAR DE LA ROSA ([id number])[address] MCH (RBC) [Entitic mass] 30.5 pg Normal 26.0-34.0 [facility] Comment on above: Performed By: #### L [id number] ####New Accounts Clerk: STAR DE LA ROSA ([id number])[facility])[address] [place] [address] MCHC 33.0 % Normal 30.5-36.0 [facility] Comment on above: Performed By: #### L [id number] ####New Accounts Clerk: STAR DE LA ROSA ([id number])[facility] ([facility])[address] [place] [address] MCV (RBC) [Entitic vol] 92.2 fL Normal 77.0-99.0 [facility] Comment on above: Performed By: #### L [id number] ####New Accounts Clerk: STAR DE LA ROSA ([id number])[facility] ([facility])[address] [place] [address] Monocytes (Bld) [#/Vol] 0.9 10*3/uL Normal 0.0-0.9 [facility] Comment on above: Performed By: #### L [id number] ####New Accounts Clerk: STAR DE LA ROSA ([id number])[facility] ([facility])[address] [place] [address] Monocytes/100 WBC (Bld) 7.9 % Normal 5.0-13.0 [facility] Comment on above: Performed By: #### L [id number] ####New Accounts Clerk: STAR DEL A ROSA ([id number])[facility] ([facility])[address] [place] [address] NEUTROPHILS ABSOLUTE 9.8 10*3/uL High 1.8-7.5 [facility] Comment on above: Performed By: #### L [id number] ####New Accounts Clerk: STAR DE LA ROSA ([id number])[facility] ([facility])[address] [place] [address] Neutrophils/100 WBC (Bld) 83.2 % High 38.0-82.0 [facility] Comment on above: Performed By: #### L [id number] ####New Accounts Clerk: STAR DE LA ROSA ([id number])[facility])[address] [place] [address] [place] NRBC 0.0 /100 WBCs Normal 0.0-2.0 [facility] Comment on above: Performed By: #### L [id number] ####New Accounts Clerk: STAR DE LA ROSA ([id number])[facility] ([facility])[address] [place] [address] Platelet mean volume (Bld) [Entitic vol] 10.3 fL Normal 9.0-12.7 [facility] Comment on above: Performed By: #### L [id number] ####New Accounts Clerk: STAR DE LA ROSA ([id number])[facility])[address] [place] [address] Platelets (Bld) [#/Vol] 220 10*3/uL Normal 140-440 [facility] Comment on above: Performed By: #### L [id number] ####New Accounts Clerk: STAR DE LA ROSA ([id number])[facility])[address] [place] [address] RBC (Bld) [#/Vol] 3.61 10*6/uL Low 3.80-5.20 [facility] Comment on above: Performed By: #### L [id number] ####New Accounts Clerk: STAR DE LA ROSA ([id number])[facility] ([facility])[address] [place] [address] WBC (Bld) [#/Vol] 11.8 10*3/uL High 3.6-10.7 [facility] Comment on above: Performed By: #### L [id number] ####New Accounts Clerk: STAR DE LA ROSA ([id number])[facility])[address] [place] [address] COMPREHENSIVE METABOLIC PANE Jay 09-24-2024 Albumin [Mass/Vol] 2.4 g/dL Low 3.4-4.8 [facility] Comment on above: Performed By: #### L [id number], [id number] ####New Accounts Clerk: STAR DE LA ROSA ([id number])[facility])[address] [place] [address] ALP [Catalytic activity/Vol] 104 U/L Normal 40-150 [facility] Comment on above: Performed By: #### L [id number], [id number] ####New Accounts Clerk: STAR DE LA ROSA ([id number])[facility])[address] [place] [address] [place] ALT [Catalytic activity/Vol] 10 U/L Normal <30 [facility] [facility] Comment on above: Performed By: #### L AB17, [id number] ####New Accounts Clerk: STAR DE LA ROSA ([phone])[facility] ([facility])[address] [place] [address] Anion gap [Moles/Vol] 11 mmol/L Normal 3-13 [facility] Comment on above: Performed By: #### L AB17, [id number] ####New Accounts Clerk: STAR DE LA ROSA ([phone])[facility] ([facility])[address] [place] [address] AST [Catalytic activity/Vol] 31 U/L Normal <34 [facility] Comment on above: Performed By: #### L AB17, [id number] ####New Accounts Clerk: STAR DE LA ROSA ([phone])[facility] ([facility])[address] [place] [address] Bilirubin [Mass/Vol] 0.5 mg/dL Normal <1.2 [facility] Comment on above: Performed By: #### L AB17, [id number] ####New Accounts Clerk: STAR DE LA ROSA ([phone])[facility])[address] [place] [address] Calcium [Mass/Vol] 8.8 mg/dL Normal 8.8-10.0 [facility] Comment on above: Performed By: #### L AB17, [id number] ####New Accounts Clerk: STAR DE LA ROSA ([phone])[facility])[address] [place] [address] [place] Chloride [Moles/Vol] 102 mmol/L Normal 98-107 [facility] Comment on above: Performed By: #### L AB17, [id number] ####New Accounts Clerk: STAR DE LA ROSA ([phone])[facility])[address] [place] [address] [place] CO2 [Moles/Vol] 25 mmol/L Normal 23-31 [facility] Comment on above: Performed By: #### L AB17, [id number] ####New Accounts Clerk: STAR DE LA ROSA ([phone])[facility] ([facility])[address] [place] [address] Creatinine [Mass/Vol] 0.76 mg/dL Normal 0.57-1.11 [facility] Comment on above: Performed By: #### L AB17, [id number] ####New Accounts Clerk: STAR DE LA ROSA ([phone])[facility])[address] [place] [address] [place] GLOMERULAR FILTRATION RATE ML/MIN/1.73 SQ M.PREDICTED 81.8 mL/min/1.73m*2 Normal >60.0 [facility] Comment on above: Result Comment: Calc ulation based on the Chronic Kidney Disease Epidemiology Collaboration (CKD-EPI) equation refit without adjustment for race Performed By: #### L AB17, [id number] ####New Accounts Clerk: STAR DE LA ROSA ([phone])[facility])[address] [place] [address] Glucose [Mass/Vol] 127 mg/dL High 82-115 [facility] Comment on above: Performed By: #### L AB17, [id number] ####New Accounts Clerk: STAR DE LA ROSA ([phone])[address] Potassium [Moles/Vol] 3.3 mmol/L Low 3.5-5.1 [facility] Comment on above: Result Comment: [facility] potassium values may be up to 0.5 mmol/L lower than serum values. Performed By: #### L AB17, [id number] ####New Accounts Clerk: STAR DE LA ROSA ([phone])[facility] ([facility])[address] [place] [address] [place] Protein [Mass/Vol] 6.8 g/dL Normal 6.4-8.3 [facility] Comment on above: Performed By: #### L AB17, [id number] ####New Accounts Clerk: STAR DE LA ROSA ([phone])[facility])[address] [place] [address] [place] Sodium [Moles/Vol] 138 mmol/L Normal 136-145 [facility] Comment on above: Performed By: #### L AB17, [id number] ####New Accounts Clerk: STAR DE LA ROSA ([phone])[facility])[address] [place] [address] Urea nitrogen [Mass/Vol] 11 mg/dL Normal 9-23 [facility] Comment on above: Performed By: #### L AB17, [id number] ####New Accounts Clerk: STAR DE LA ROSA ([id number])[facility] ([facility])[address] [place] [address] Comprehensive metabolic 1998 panelon 09-24-2024 Albumin [Mass/Vol] 2.4 g/dL Low 3.4 - 4.8 g/dL [facility] ALP [Catalytic activity/Vol] 104 U/L 40 - 150 U/L [facility] ALT [Catalytic activity/Vol] 10 U/L NINF - 30 U/L [facility] Anion gap [Moles/Vol] 11 mmol/L 3 - 13 mmol/L [facility] AST [Catalytic activity/Vol] 31 U/L NINF - 34 U/L [facility] Bilirubin [Mass/Vol] 0.5 mg/dL NINF - 1.2 mg/dL [facility] Calcium [Mass/Vol] 8.8 mg/dL 8.8 - 10. 0 mg/dL [facility] Chloride [Moles/Vol] 102 mmol/L 98 - 10 7 mmol/L [facility] CO2 [Moles/Vol] 25 mmol/L 23 - 31 mmol/L [facility] Creatinine [Mass/Vol] 0.76 mg/dL 0.57 - 1.11 mg/dL [facility] GFR/1.73 sq M.predicted (S/P/Bld) [Vol rate/Area] 81.8 mL/min - PINF [facility] Comment on above: Calculation based on the Chronic Kidney Disease Epidemiology Collaboration (CKD-EPI) equation refit without adjustment for race Glucose [Mass/Vol] 127 mg/dL High 82 - 115 mg/dL [facility] Interpretation and review of laboratory results Abnormal [facility] Potassium [Moles/Vol] 3.3 mmol/L Low 3.5 - 5.1 mmol/L [facility] Comment on above: Plasma potassium holland ues may be up to 0.5 mmol/L lower than serum values. Protein [Mass/Vol] 6.8 g/dL 6.4 - 8.3 g/dL [facility] Sodium [Moles/Vol] 138 mmol/L 136 - 145 mmol/L [facility] Urea nitrogen [Mass/Vol] 11 mg/dL 9 - 23 mg/dL [facility] Consulton 09-24-2024 Consult [facility] Medical [facility] Geriatric Medicine Inpatient Consult Service Admission Date:09/23/2024 Admission Status: INPATIENT Chief Complaint: Fall Reason for Appointment Geriatrics consulted for Fall Assessment Principal Problem: Pneumonia due to organism Active Problems: Pneumonia due to infectious agent Plan Fall - mechanical fall - risk factors include: acute illness, significant polypharmacy (see recs below) - Vitamin D level pending - Check Carbamazepine level as below - check orthostatic vital signs - PT/OT as able - PT currently recommending SNF Bipolar disorder - per facility is followed by in house psych team at [facility] - see medication recommendations as below, significant polypharmacy- on several psych medications - recommend consultation to psychiatry for further recommendations to reduce current medication burden as able Hypothyroidism - agree with check of TSH - per facility her TENTER dose of Levothyroxine is 88mcg, currently ordered 75mcg, please adjust dose if appropriate- defer management to primary team Polypharmacy - I personally called and spoke with nurse Boyce at [facility] to review medications- reported to be taking the following medications: - Buspar 10mg TID- order placed to restart this medication - Tegretol 200mg TID- ordered here, continue- consider tegretol level in setting of fall - Levothyroxine 88mcg daily- change dosage if appropriate as above - Tramadol 100mg q8hrs PRN Pain- per nursing staff consistently takes 100mg nightly at facility- can continue off for now, monitor for pain - Seroquel 25mg BID- recommend restarting while inpatient in setting of Bipolar disorder as above, defer to Psych - Risperdal 0.5mg BID- recommend restarting while inpatient in setting of Bipolar disorder as above, defer to Psych - Tizanidine 2mg BID- unclear indication for this, would recommend attempts at gradual dose reduction vs changing to PRN - Pregabalin 150mg BID- will restart while here to prevent possible withdrawal - Vistaril 25mg BID- OK to continue to hold at this time, 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 alternative mcfp- due to anticholinergic effects may further contribute to her fall risk - Omeprazole 40mg BID- currently on pantoprazole here - Pravastatin- has been restarted here - Plavix 75mg daily- has been restarted here - Folic Acid 1mg daily- has been restarted here - takes potassium supplementation at facility- assess for need for restarting/continuatio n while here - Venlafaxine 37,5mg daily- assess for appropriateness of restarting her, defer to psych - Melatonin 10mg nightly- consider adding melatonin PRN for sleep - Will ask our geriatric pharmacist to further review medications for recommendations, as above would also recommend the involvement of psychiatry for further recommendations. Follow-up: 1-2 days as needed Subjective: HPI 74 y.o. year-old female with past medical history of Bipolar disorder, hypothyroidism presented from facility for fall. Per review of H&P- patient had a witnessed mechanical fall. patient has reportedly been on oxygen for the past few days with cough and sputum production. In the ED, CXR was concerning for PNA. Started on Ceftriaxone, Resp culture pending, negative for influenza, RSV. Creat 1.14 on admission, sodium 133. Lactic acid normal, CBC with slight leukocytosis at 11.6 Patient refusing blood tests this morning per review of nursing notes. Patient reports that she is feeling more anxious at this time, she reports that she knows that she is here for a fall- states she was sitting next to a friend on the couch and fell forward, reports she knows she is being treated for pneumonia- reports coughing, no pain at this time, having some nausea that is impacting appetite- reports she did not eat much breakfast Sp[facility] patient with anxiety, medication review as above, patient follows with an in house psychiatric orderly Allergies Allergen Reactions Aspirin Butorphanol Hydromorphone Ibuprofen Oxycodone Prochlorperazine Salicylamide Sulfa Antibiotics Sumatriptan Current Facility-Administered Medications: acetaminophen (Tylenol) tablet 650 mg, 650 mg, Oral, q6h PRN, 650 mg at 09/24/24 0555 OR acetaminophen (Tylenol) suppository 650 mg, 650 mg, Rectal, q6h PRN, Lashon Sullivan MD busPIRone (Buspar) tablet 10 mg, 10 mg, Oral, TID, Shweta Carson APRN - JOSÉ carBAMazepine (TEGretol) tablet 200 mg, 200 mg, Oral, TID, Lashon Sullivan MD, 200 mg at 09/24/24 0826 cefTRIAXone (Rocephin) 1,000 mg in sodium chloride 0.9 % 50 mL IVPB Mini-Bag Plus, 1,000 mg, IntraVENous, q24h, Lashon Sullivan MD, Stopped at 09/24/24 1149 clopidogrel (Plavix) tablet 75 mg, 75 mg, Oral, Daily, Lashon Sullivan MD, 75 mg at 09/24/24 0825 enoxaparin (Lovenox) syringe 40 mg, 40 mg, SubCUTAneous, q24h, Lashon Sullivan MD, 40 mg at (more content not included)... Normal [facility] - Chemistry and C hemistry - challengeon 09-24-2024 25-hydroxyvitamin D3 [Mass/Vol] 40 ng/mL 20 - PINF ng/mL [facility] Magnesium [Mass/Vol] 1.5 mg/dL Low 1.6 - 2 .6 mg/dL [facility] MAGNESIUMon 09-24-2024 Magnesium [Mass/Vol] 1.5 mg/dL Low 1.6-2.6 [facility] Comment on above: Result Comment: KAMILLA R COMMENTS: Higher values can be expected in females during menses. Performed By: #### L AB17, [id number] ####New Accounts Clerk: STAR DE LA ROSA ([id number])[facility] ([address] MYCOPLASMA PNEUMONIAE ANTIBO DY, IGMon 09-24-2024 MYCOPLASMA PNEUMO, IGM AB 0.29 U/L Normal <=0.76 [facility] Comment on above: Result Comment: INTE RPRETIVE INFORMATION: Mycoplasma pneumoniae Ab, IgM 0.76 U/L or less .......... Negative: No clinically significant amount of M. pneumoniae IgM antibody detected. 0.77 - 0.95 U/L ........... Low Positive: M. pneumoniae- specific IgM presumptively detected. Collection of a follow-up sample in 1-2 weeks is recommended to assure reactivity. 0.96 U/L or greater ....... Positive: Highly significant amount of M. pneumoniae- specific IgM antibody detected. However, low levels of IgM antibodies may occasionally persist for more than 12 months post-infection. Performed By: [employer] [address] [place] [address] New Car Salesperson: Troy Bateman MD, PhD CLIA Number: [id number] Performed By: #### L [id number] ####[facility] ([facility])[address] [place] [address] [place] Magnesium [Mass/Vol]on 09-24 Interpretation and review of laboratory results Abnormal [facility] [employer] Higher values can be expected in females during menses. [facility] No Panel InformationOrdered By: Madelyn Augustin on 09-24-2024 Interpretation and review of laboratory results Abnormal [facility] [employer] mecA/C (MRSE/MRSL) Detected Abnormal Not Detected [facility] [employer] Staphylococcus epidermidis Detected Abnormal Not Detected [facility] Methodology: Multipl ex PCR The [employer] BCID panel can detect the following organisms: E. faecalis, E. faecium, Staphylococcus spp., S. aureus, S. epidermidis, S. lugdunensis, Streptococcus spp., S. pyogenes (Group A), S. agalactiae (Group B), S. pneumoniae, A. baumannii complex, B. fragilis, H. influenzae, N. meningitidis, P. aeruginosa, S. maltophilia, Enterobacterales, E. cloacae complex, E. coli, K. aerogenes, K. oxytoca, K. pneumoniae, Proteus spp., Salmonella spp., S. marcescens, C. albicans, C. auris, C. glabrata, C. krusei, C. parapsilosis, C. tropicalis, and C. neoformans/gattii. The following antimicrobial resistance genes are reported if appropriate organisms are detected: mecA/C and Zoey/B. The following antimicrobial resistance genes are reported if detected and the appropriate organisms are detected: CTX-M, IMP, KPC, NDM, OXA-48-like, VIM, and mcr-1. [facility] Nursing Noteon 09-24-2024 Nursing Note Wound Care consulted for Pressure Injury Prevention. Pt's Rakan score= 18 on 09/24 Pt's pressure points assessed. Pt's Heels, Buttocks/coccyx, Back, Elbows, Occiput and ears all intact. MASD noted to gluteal cleft. Prevention Measures in place, including: [place] sheet with pillows/wedges, Foam heel protectors (obtained and applied), Heels elevated off bed on pillows, Zinc/Moisture Barrier ointment, Waffle chair cushion (obtained for pt). Skin Care precaution order set in place. Dietitian consult N/A, nutrition subscore of 3. PT/OT consult in place. Will continue to follow pt. Please [employer] for any questions or concerns. Damari Wharton RN Normal [facility] Nursing Note Pt's blood work attempted x2 this morning. Pt refusing anymore attempts at this time. Normal [facility] RESPIRATORY CULTURE AND STAI Non 09-24-2024 RESPIRATORY CULTURE AND STAIN RESPIRATORY CULTURE Reference Few respiratory sena present. GRAM STAIN RESULT Reference Rare Epithelial cells per low power field Many Polymorphonuclear leukocytes per low power field No organisms seen [ S = SUSCEPTIBLE R = RESISTANT I = INTERMEDIATE S-DD = Susceptible-dose dependent NS = Non-susceptible NO = No Interpretation ] Normal [facility] Comment on above: Performed By: #### L [id number] ####New Accounts Clerk: STAR DE L AROSA ([id number])[facility] ([address] Respiratory pathogens DNA an d RNA panel KAMLA+non-probe (Nph)on 09-24-2024 Adenovirus Not detected Not Detected [facility] B. pertussis DNA KAMLA+probe Ql (Unsp spec) Not detected Not Detected [facility] Bordetella parapertussis Not detected Not Detected [facility] Chlamydia pneumoniae Not detected Not Detected [facility] Coronavirus 229E Not detected Not Detected [facility] Coronavirus HKU1 Not detected Not Detected [facility] Coronavirus NL63 Detected Abnormal Not Detected [facility] Coronavirus OC43 Not detected Not Detected [facility] FLUAV RNA KAMLA+non-probe Ql (Nph) Not detected Not Detected [facility] FLUBV RNA KAMLA+non-probe Ql (Nph) Not detected Not Detected [facility] Human Metapneumovirus Not detected Not Detected [facility] Human Rhinovirus/Enterovirus Not detected Not Detected [facility] Interpretation and review of laboratory results Abnormal [facility] Mycoplasma pneumoniae Not detected Not Detected [facility] Parainfluenza 1 Not detected Not Detected [facility] Parainfluenza 2 Not detected Not Detected [facility] Parainfluenza 3 Not detected Not Detected [facility] Parainfluenza 4 Not detected Not Detected [facility] Respiratory Syncytial Virus Not detected Not Detected [facility] SARS-CoV-2 (COVID-19) RNA KAMLA+non-probe Ql (Nph) Not detected Not Detected [facility] Methodology: Multipl ex PCR [facility] VITAMIN D DEFICIENCY SCREENI NG (VIT D 25)on 09-24-2024 VIT D 25-OH, TOTAL 40 ng/mL Normal >20 [facility] Comment on above: Result Comment: KAMILLA Gill COMMENTS: Target concentration: 30 - 40 ng/mL; toxicity seen at concentrations >100 ng/mL Therapy is based on measurement of Total 25-OHD with the following classification levels: Less than 20 ng/mL: Indicative of Vit D deficiency 20-30 ng/mL: Suggests Vit D insufficiency Optimal: Greater than or equal to 30 ng/mL Test performed by [employer]oft Competitive Immunoassay, measuring Total Vitamin D, not individual fractions. Performed By: #### L AB21, [id number] ####New Accounts Clerk: STAR DE LA ROSA ([phone])[facility] ([facility])[address] [place] [address] ABO and Rh group Confirm Nom (Bld)on 09-23-2024 ABO group Nom (Bld) O [facility] D Ag Ql (RBC) Positive [facility] BASIC METABOLIC PANELon 09-14 Anion gap [Moles/Vol] 7 mmol/L Normal 3-13 [facility] Comment on above: Performed By: #### L AB113, LAB46, LAB15, [id number], [id number] ####New Accounts Clerk: STAR DE LA ROSA ([id number])[facility] ([facility])[address] [place] [address] Calcium [Mass/Vol] 8.6 mg/dL Low 8.8-10.0 [facility] Comment on above: Performed By: #### L AB113, LAB46, LAB15, [id number], [id number] ####New Accounts Clerk: STAR DE LA ROSA ([id number])[facility] ([facility])[address] [place] [address] Chloride [Moles/Vol] 98 mmol/L Normal 98-107 [facility] Comment on above: Performed By: #### L AB113, LAB46, LAB15, [id number], [id number] ####New Accounts Clerk: STAR DE LA ROSA ([phone])[facility])[address] [place] [address] CO2 [Moles/Vol] 28 mmol/L Normal 23-31 [facility] Comment on above: Performed By: #### L AB113, LAB46, LAB15, [id number], [id number] ####New Accounts Clerk: STAR DE LA ROSA ([phone])[facility])[address] [place] [address] Creatinine [Mass/Vol] 1.14 mg/dL High 0.57-1.11 [facility] Comment on above: Performed By: #### L AB113, LAB46, LAB15, [id number], [id number] ####New Accounts Clerk: STAR DE LA ROSA ([id number])[facility])[address] [place] [address] GLOMERULAR FILTRATION RATE ML/MIN/1.73 SQ M.PREDICTED 50.3 mL/min/1.73m*2 Low >60.0 [facility] Comment on above: Result Comment: Calc ulation based on the Chronic Kidney Disease Epidemiology Collaboration (CKD-EPI) equation refit without adjustment for race Performed By: #### L AB113, LAB46, LAB15, [id number], [id number] ####New Accounts Clerk: STAR DE LA ROSA ([phone])[facility])[address] [place] [address] Glucose [Mass/Vol] 148 mg/dL High 82-115 [facility] Comment on above: Performed By: #### L AB113, LAB46, LAB15, [id number], [id number] ####New Accounts Clerk: STAR DE LA ROSA ([id number])[address] Potassium [Moles/Vol] 3.9 mmol/L Normal 3.5-5.1 [facility] Comment on above: Result Comment: [facility] potassium values may be up to 0.5 mmol/L lower than serum values. Performed By: #### L AB113, LAB46, LAB15, [id number], [id number] ####New Accounts Clerk: STAR DE LA ROSA ([id number])[address] Sodium [Moles/Vol] 133 mmol/L Low 136-145 [facility] Comment on above: Performed By: #### L AB113, LAB46, LAB15, [id number], [id number] ####New Accounts Clerk: STAR DE LA ROSA ([id number])[address] Urea nitrogen [Mass/Vol] 23 mg/dL Normal 9-23 [facility] Comment on above: Performed By: #### L AB113, LAB46, LAB15, [id number], [id number] ####New Accounts Clerk: STAR DE LA ROSA ([id number])[address] BLOOD CULTUREon 09-23-2024 Bacteria identified Cx Nom (Bld) BLOOD CULTURE (AA) Reference STAPHYLOCOCCUS EPIDERMIDIS Staphylococcus epidermidis (AA) Contamination likely unless additional blood culture sets are found to be positive with the same organism. This is an edited result. Previous organism was Gram-positive cocci on 09/24/2024 at 0802 EST. ORDER COMMENTS: Blood Collection Site: Right Wrist [ S = SUSCEPTIBLE R = RESISTANT I = INTERMEDIATE S-DD = Susceptible-dose dependent NS = Non-susceptible NO = No Interpretation ] Normal [facility] Comment on above: Performed By: #### L [id number], [id number] #### New Accounts Clerk: STAR DE LA ROSA ([id number]) [place] [id number] [place] Performed By: #### L [id number], [id number] ####New Accounts Clerk: STAR DE LA ROSA ([id number])[address] Bacteria identified Cx Nom (Bld) BLOOD CULTURE Reference No growth at 5 days ORDER COMMENTS: Blood Collection Site: Right Forearm [ S = SUSCEPTIBLE R = RESISTANT I = INTERMEDIATE S-DD = Susceptible-dose dependent NS = Non-susceptible NO = No Interpretation ] [facility] Comment on above: Performed By: #### L AB462 ####New Accounts Clerk: STAR DE LA ROSA ([id number])[address] BLOOD CULTURE IDENTIFICATION - AEROBICon 09-23-2024 BLOOD CULTURE IDENTIFICATION - AEROBIC STAPHYLOCOCCUS EPIDERMIDIS, BLOOD (A) Reference Detected Not Detected MECA/C METHICILLIN RESISTANCE, BLOOD (A) Reference Detected Not Detected ORDER COMMENTS: (A) Methodology: Multiplex PCR The [employer] BCID panel can detect the following organisms: E. faecalis, E. faecium, Staphylococcus spp., S. aureus, S. epidermidis, S. lugdunensis, Streptococcus spp., S. pyogenes (Group A), S. agalactiae (Group B), S. pneumoniae, A. baumannii complex, B. fragilis, H. influenzae, N. meningitidis, P. aeruginosa, S. maltophilia, Enterobacterales, E. cloacae complex, E. coli, K. aerogenes, K. oxytoca, K. pneumoniae, Proteus spp., Salmonella spp., S. marcescens, C. albicans, C. auris, C. glabrata, C. krusei, C. parapsilosis, C. tropicalis, and C. neoformans/gattii. The following antimicrobial resistance genes are reported if appropriate organisms are detected: mecA/C and Zoey/B. The following antimicrobial resistance genes are reported if detected and the appropriate organisms are detected: CTX-M, IMP, KPC, NDM, OXA-48-like, VIM, and mcr-1. [facility] Comment on above: Performed By: #### L [id number], [id number] #### New Accounts Clerk: STAR [id number]) [facility] ([facility]) [address] [place] [address] Performed By: #### L YQ1983, [id number] ####New Accounts Clerk: STAR DE LA ROSA ([id number])[facility] ([facility])[address] [place] [address] BLOOD TYPE AND SCREEN GELon 09-23-2024 ABO GROUPING O Normal [facility] Comment on above: Performed By: #### L AB276 ####New Accounts Clerk: STAR DE LA ROSA ([id number])[facility] ([facility])[address] [place] [address] RH TYPE IN BLOOD Positive Normal [facility] Comment on above: Performed By: #### L AB276 ####New Accounts Clerk: STAR DE LA ROSA ([phone])[facility] ([facility])[address] [place] [address] Basic Metabolic Profile (BMP )on 09-23-2024 BUN Normal 7-18 [facility] Comment on above: Order Comment: 104-2 Result Comment: UTO X2 Performed By: #### L 501.7900, [id number] #### [facility] [address] [place], [address] BUN/CRE Normal 10-20 [facility] Comment on above: Order Comment: 104-2 Result Comment: UTO X2 Performed By: #### L 501.7900, [id number] #### [facility] [facility] [address] [place], [address] CA,Total Normal 8.5-10.1 [facility] Comment on above: Order Comment: 104-2 Result Comment: UTO X2 Performed By: #### L 501.7900, [id number] #### [facility] [address] [place], [address] CL Normal 98-107 [facility] Comment on above: Order Comment: 104-2 Result Comment: UTO X2 Performed By: #### L [id number], [id number] #### [facility] [address] [place], [address] CO2 Normal 21.0-32.0 [facility] Comment on above: Order Comment: -2 Result Comment: UTO X2 Performed By: #### L [id number], [id number] #### [facility] [address] [place], [address] CREAT,SERUM Normal 0.55-1.02 [facility] Comment on above: Order Comment: -2 Result Comment: UTO X2 Performed By: #### L [id number], [id number] #### [facility] [address] [place], [address] EST GFR Normal >60 [facility] Comment on above: Order Comment: -2 Result Comment: UTO X2 Performed By: #### L [id number], [id number] #### [facility] [address] [place], [address] EST GFR - AA Normal >60 [facility] Comment on above: Order Comment: -2 Result Comment: UTO X2 Performed By: #### L [id number], [id number] #### [facility] [address] [place], [address] GAP Normal 5-15 [facility] Comment on above: Order Comment: -2 Result Comment: UTO X2 Performed By: #### L [id number], [id number] #### [facility] [address] [place], [address] GLU Normal 74-106 [facility] Comment on above: Order Comment: -2 Result Comment: UTO X2 Performed By: #### L [id number], [id number] #### [facility] [address] [place], [address] Potassium Normal 3.5-5.1 [facility] Comment on above: Order Comment: 104-2 Result Comment: UTO X2 Performed By: #### L [id number], [id number] #### [facility] [address] [place], [address] Basic Metabolic Profile (BMP) Normal 136-145 [facility] Comment on above: Order Comment: 104-2 Result Comment: UTO X2 Performed By: #### L [id number], [id number] #### [facility] [address] [place], [place], [address] Basic metabolic 1998 panelon 09-23-2024 Anion gap [Moles/Vol] 7 mmol/L 3 - 13 mmol/L [facility] Calcium [Mass/Vol] 8.6 mg/dL Low 8.8 - 10. 0 mg/dL [facility] Chloride [Moles/Vol] 98 mmol/L 98 - 10 7 mmol/L [facility] CO2 [Moles/Vol] 28 mmol/L 23 - 31 mmol/L [facility] Creatinine [Mass/Vol] 1.14 mg/dL High 0.57 - 1.11 mg/dL [facility] GFR/1.73 sq M.predicted (S/P/Bld) [Vol rate/Area] 50.3 mL/min Low - PINF [facility] Comment on above: Calculation based on the Chronic Kidney Disease Epidemiology Collaboration (CKD-EPI) equation refit without adjustment for race Glucose [Mass/Vol] 148 mg/dL High 82 - 115 mg/dL [facility] Potassium [Moles/Vol] 3.9 mmol/L 3.5 - 5.1 mmol/L [facility] Comment on above: Plasma potassium holland ues may be up to 0.5 mmol/L lower than serum values. Sodium [Moles/Vol] 133 mmol/L Low 136 - 145 mmol/L [facility] Urea nitrogen [Mass/Vol] 23 mg/dL 9 - 23 mg/dL [facility] Blood type and Crossmatch carlos olmedol (Bld)on 09-23-2024 ABO group Nom (Bld) O [facility] Blood group antibody screen GEL Ql Negative [facility] [employer] D Ag Ql (RBC) Positive [facility] CBC W Auto Differential pane l (Bld)on 09-23-2024 Basophils (Bld) [#/Vol] 0.1 10*3/uL 0.0 - 0.2 10*3/uL [facility] Basophils/100 WBC (Bld) 0.4 % 0.0 - 2.0 % [facility] Eosinophils (Bld) [#/Vol] 0.1 10*3/uL 0.0 - 0.5 10*3/uL [facility] Eosinophils/100 WBC (Bld) 0.6 % 0.0 - 6.0 % [facility] Erythrocyte distribution width (RBC) [Ratio] 12.9 % 11.5 - 15.0 % [facility] Hematocrit (Bld) [Volume fraction] 35.5 % 35.0 - 47.0 % [facility] Hemoglobin (Bld) [Mass/Vol] 11.7 g/dL 11.7 - 16.0 g/dL [facility] Immature granulocytes (Bld) [#/Vol] 0.1 10*3/uL High NINF - 0.1 10*3/uL [facility] Immature granulocytes/100 WBC (Bld) 0.5 % 0.0 - 2.0 % [facility] Interpretation and review of laboratory results Abnormal [facility] Lymphocytes (Bld) [#/Vol] 0.7 10*3/uL Low 1.0 - 4.3 10*3/uL [facility] Lymphocytes/100 WBC (Bld) 6 % Low 15.0 - 45.0 % [facility] MCH (RBC) [Entitic mass] 30.8 pg 26.0 - 34.0 pg [facility] MCHC (RBC) [Mass/Vol] 33 % 30.5 - 36.0 % [facility] MCV (RBC) [Entitic vol] 93.4 fL 77.0 - 99.0 fL [facility] Monocytes (Bld) [#/Vol] 1.2 10*3/uL High 0.0 - 0.9 10*3/uL [facility] Monocytes/100 WBC (Bld) 10.3 % 5.0 - 13.0 % [facility] Neutrophils (Bld) [#/Vol] 9.5 10*3/uL High 1.8 - 7.5 10*3/uL [facility] Neutrophils/100 WBC (Bld) 82.2 % High 38.0 - 82.0 % [facility] Nucleated RBC/100 WBC (Bld) [Ratio] 0 % [facility] Platelet mean volume (Bld) [Entitic vol] 10.6 fL 9.0 - 12.7 fL [facility] Platelets (Bld) [#/Vol] 209 10*3/uL 140 - 440 10*3/uL [facility] RBC (Bld) [#/Vol] 3.8 10*6/uL 3.80 - 5.2 0 10*6/uL [facility] WBC (Bld) [#/Vol] 11.6 10*3/uL High 3.6 - 10.7 10*3/uL [facility] CBC WITH AUTO DIFFERENTIALon 09-23-2024 Basophils (Bld) [#/Vol] 0.1 10*3/uL Normal 0.0-0.2 [facility] Comment on above: Performed By: #### L [id number] ####New Accounts Clerk: STAR DE LA ROSA ([phone])[facility])[address] [place] [address] Basophils/100 WBC (Bld) 0.4 % Normal 0.0-2.0 [facility] Comment on above: Performed By: #### L [id number] ####New Accounts Clerk: STAR DE LA ROSA ([phone])[facility])[address] [place] [address] Eosinophils (Bld) [#/Vol] 0.1 10*3/uL Normal 0.0-0.5 [facility] Comment on above: Performed By: #### L [id number] ####New Accounts Clerk: STAR DE LA ROSA ([phone])[facility])[address] [place] [address] Eosinophils/100 WBC (Bld) 0.6 % Normal 0.0-6.0 [facility] Comment on above: Performed By: #### L [id number] ####New Accounts Clerk: STAR DE LA ROSA ([phone])[facility])[address] [place] [address] Erythrocyte distribution width (RBC) [Ratio] 12.9 % Normal 11.5-15.0 [facility] Comment on above: Performed By: #### L [id number] ####New Accounts Clerk: STAR DE LA ROSA ([phone])[facility])[address] [place] [address] Hematocrit (Bld) [Volume fraction] 35.5 % Normal 35.0-47.0 [facility] Comment on above: Performed By: #### L [id number] ####New Accounts Clerk: STAR DE LA ROSA ([phone])[facility])[address] [place] [address] Hemoglobin (Bld) [Mass/Vol] 11.7 g/dL Normal 11.7-16.0 [facility] Comment on above: Performed By: #### L [id number] ####New Accounts Clerk: STAR DE LA ROSA ([phone])[facility])[address] [place] [address] IMMATURE GRANS % 0.5 % Normal 0.0-2.0 [facility] Comment on above: Performed By: #### L [id number] ####New Accounts Clerk: STAR DE LA ROSA ([phone])[facility])[address] [place] [address] IMMATURE GRANS ABSOLUTE 0.1 10*3/uL High <0.1 [facility] Comment on above: Performed By: #### L [id number] ####New Accounts Clerk: STAR DE LA ROSA ([phone])[facility])[address] [place] [address] Lymphocytes (Bld) [#/Vol] 0.7 10*3/uL Low 1.0-4.3 [facility] Comment on above: Performed By: #### L [id number] ####New Accounts Clerk: STAR DE LA ROSA ([phone])[facility])[address] [place] [address] Lymphocytes/100 WBC (Bld) 6.0 % Low 15.0-45.0 [facility] Comment on above: Performed By: #### L [id number] ####New Accounts Clerk: STAR DE LA ROSA ([phone])[facility])[address] [place] [address] MCH (RBC) [Entitic mass] 30.8 pg Normal 26.0-34.0 [facility] Comment on above: Performed By: #### L [id number] ####New Accounts Clerk: STAR DE LA ROSA ([phone])[facility])[address] [place] [address] MCHC 33.0 % Normal 30.5-36.0 [facility] Comment on above: Performed By: #### L [id number] ####New Accounts Clerk: STAR DE LA ROSA ([phone])[facility])[address] [place] [address] MCV (RBC) [Entitic vol] 93.4 fL Normal 77.0-99.0 [facility] Comment on above: Performed By: #### L [id number] ####New Accounts Clerk: STAR DE LA ROSA ([phone])[facility])[address] [place] [address] Monocytes (Bld) [#/Vol] 1.2 10*3/uL High 0.0-0.9 [facility] Comment on above: Performed By: #### L [id number] ####New Accounts Clerk: STAR DE LA ROSA ([phone])[facility])[address] [place] [address] Monocytes/100 WBC (Bld) 10.3 % Normal 5.0-13.0 [facility] Comment on above: Performed By: #### L [id number] ####New Accounts Clerk: STAR DE LA ROSA ([phone])[facility])[address] [place] [address] NEUTROPHILS ABSOLUTE 9.5 10*3/uL High 1.8-7.5 [facility] Comment on above: Performed By: #### L [id number] ####New Accounts Clerk: STAR DE LA ROSA ([phone])[facility] ([facility])[address] [place] [address] Neutrophils/100 WBC (Bld) 82.2 % High 38.0-82.0 [facility] Comment on above: Performed By: #### L [id number] ####New Accounts Clerk: STAR DE LA ROSA ([phone])[facility] ([facility])[address] [place] [address] NRBC 0.0 /100 WBCs Normal 0.0-2.0 [facility] Comment on above: Performed By: #### L [id number] ####New Accounts Clerk: STAR DE LA ROSA ([phone])[facility] ([facility])[address] [place] [address] Platelet mean volume (Bld) [Entitic vol] 10.6 fL Normal 9.0-12.7 [facility] Comment on above: Performed By: #### L [id number] ####New Accounts Clerk: STAR DE LA ROSA ([id number])[facility] ([facility])[address] [place] [address] Platelets (Bld) [#/Vol] 209 10*3/uL Normal 140-440 [facility] Comment on above: Performed By: #### L [id number] ####New Accounts Clerk: STAR DE LA ROSA ([phone])[facility] ([facility])[address] [place] [address] RBC (Bld) [#/Vol] 3.80 10*6/uL Normal 3.80-5.20 [facility] Comment on above: Performed By: #### L [id number] ####New Accounts Clerk: STAR DE LA ROSA ([phone])[facility] ([facility])[address] [place] [address] WBC (Bld) [#/Vol] 11.6 10*3/uL High 3.6-10.7 [facility] Comment on above: Performed By: #### L [id number] ####New Accounts Clerk: STAR DE LA ROSA ([phone])[facility] ([facility])[address] [place] [address] CBC-Complete Blood Cnt No Licha haynes 09-23-2024 HCT Normal 37-47 [facility] Comment on above: Order Comment: 104-2 Result Comment: UTO X2 Performed By: #### L [id number], [id number] #### [facility] [address] [place], [address] HGB Normal 12.0-15.0 [facility] Comment on above: Order Comment: 104-2 Result Comment: UTO X2 Performed By: #### L [id number], [id number] #### [facility] [address] [place], [address] MCH Normal 27.0-32.0 [facility] Comment on above: Order Comment: 104-2 Result Comment: UTO X2 Performed By: #### L [id number], [id number] #### [facility] [address] [place], [address] MCHC Normal 32-36 [facility] Comment on above: Order Comment: 104-2 Result Comment: UTO X2 Performed By: #### L [id number], [id number] #### [facility] [address] [place], [address] MCV Normal 81-99 [facility] Comment on above: Order Comment: 104-2 Result Comment: UTO X2 Performed By: #### L [id number], [id number] #### [facility] [address] [place], [address] PLT Normal 150-450 [facility] Comment on above: Order Comment: 104-2 Result Comment: UTO X2 Performed By: #### L [id number], [id number] #### [facility] [address] [place], [address] RBC Normal 4.2-5.4 [facility] Comment on above: Order Comment: 104-2 Result Comment: UTO X2 Performed By: #### L [id number], [id number] #### [facility] [address] [place], [address] RDW CV Normal 11.6-14.6 [facility] Comment on above: Order Comment: 104-2 Result Comment: UTO X2 Performed By: #### L [id number], [id number] #### [facility] [address] [place], [address] RDW SD Normal 35.1-43.9 [facility] Comment on above: Order Comment: 104-2 Result Comment: UTO X2 Performed By: #### L [id number], [id number] #### [facility] [address] [place], [address] WBC Normal 4.4-11.0 [facility] Comment on above: Order Comment: 104-2 Result Comment: UTO X2 Performed By: #### L [id number], [id number] #### [facility] [address] [place], [address] CT [facility] CERVICAL SPINE WO IV CONTRAST [facility] 1950 [id number] Exam Date/Time: 09/23/2024 11:10 Procedure: CT CERVICAL SPINE WO IV CONTRAST Ordering Provider: VILLATORO RYLEE Reason For Exam: fall Examination: CT head Technique: Axial CT images of the head were obtained without IV contrast at 5 mm intervals. Dose reduction was employed with automatic exposure control. Coronal and sagittal reconstructions were also provided Indication: fall Findings: Minimal diffuse parenchymal volume loss is noted, evidence by prominence of the ventricles and sulci. Moderate decreased attenuation is noted within the periventricular white matter, likely secondary to chronic small vessel ischemia. The albarran-white differentiation is grossly intact. There are no extra-axial fluid collections or acute intracranial hemorrhage appreciated. There is no midline shift identified. Moderate mucoperiosteal thickening of the right maxillary sinus present. There is moderate mucoperiosteal thickening and partial opacification of the ethmoid air cells. Mild mucoperiosteal thickening of the sphenoid sinuses is noted. The mastoid air cells are grossly unremarkable.. The bones are grossly unremarkable. Atherosclerotic calcification of the carotid siphons and distal vertebral arteries is noted. IMPRESSION: Impression: Likely chronic small vessel ischemic changes in the periventricular white matter. No acute intracranial abnormality. Examination: CT cervical spine Indication: fall Technique: Axial CT images of the cervical spine were obtained at 1 mm intervals. Dose reduction was employed with automatic exposure control. Sagittal and coronal reconstructions were provided as well. Findings: The cervical vertebral bodies are in gross anatomic alignment. There is no acute fracture. Moderate disc space loss present at C6/C7 with posterior disc bulging and small osteophytes. Moderate disc space loss present posteriorly at C5/C6. There is fusion of the right C2/C3 facet joint. There is no prevertebral soft tissue swelling. No cervical adenopathy is demonstrated. Multiple subcentimeter cervical lymph nodes are present, bilaterally. Impression: No acute osseous abnormality Examination: CT chest without contrast Indication: fall Technique: Axial CT images of the chest were obtained from the thoracic inlet through the lung bases at 1 mm intervals without IV contrast. Dose reduction was employed with automatic exposure control. Coronal and sagittal reconstructions were also provided for review. Findings: The aorta and pulmonary artery are grossly of normal caliber. No significant coronary artery calcification is present. The heart is not enlarged. Borderline slightly enlarged mediastinal lymph nodes present with alvin disease to the right of the speedy measuring 1.3 x 1.5 cm. Right basilar airspace disease present, greatest in the right lung base with consolidation. Patchy infiltrates of the right midlung as well. Small patchy left basilar infiltrate. Cholecystectomy changes present. There is a reverse left-sided shoulder arthroplasty. Mild to moderate degenerative changes of the thoracic spine are noted. Impression Diffuse infiltrate of the right mid and lower lung, greatest in the right lower lobe with consolidation. Mild left basilar infiltrate as well. Follow-up recommended to document resolution. Mediastinal adenopathy. Report Dictated on Electronically Signed By: Olya Kang MD Electronically Signed Date/Time: 09/23/2024 11:[address] [facility] CT CHEST WO IV CONTRASTon CT CHEST WO IV CONTRAST Patient Name: IVAN WHEAT : 1950 [facility]#: [id number] Exam Date/Time: 09/23/2024 11:10 Procedure: CT CHEST WO IV CONTRAST Ordering Provider: VILLATORO RYLEE Reason For Exam: fall Examination: CT head Technique: Axial CT images of the head were obtained without IV contrast at 5 mm intervals. Dose reduction was employed with automatic exposure control. Coronal and sagittal reconstructions were also provided Indication: fall Findings: Minimal diffuse parenchymal volume loss is noted, evidence by prominence of the ventricles and sulci. Moderate decreased attenuation is noted within the periventricular white matter, likely secondary to chronic small vessel ischemia. The albarran-white differentiation is grossly intact. There are no extra-axial fluid collections or acute intracranial hemorrhage appreciated. There is no midline shift identified. Moderate mucoperiosteal thickening of the right maxillary sinus present. There is moderate mucoperiosteal thickening and partial opacification of the ethmoid air cells. Mild mucoperiosteal thickening of the sphenoid sinuses is noted. The mastoid air cells are grossly unremarkable.. The bones are grossly unremarkable. Atherosclerotic calcification of the carotid siphons and distal vertebral arteries is noted. IMPRESSION: Impression: Likely chronic small vessel ischemic changes in the periventricular white matter. No acute intracranial abnormality. Examination: CT cervical spine Indication: fall Technique: Axial CT images of the cervical spine were obtained at 1 mm intervals. Dose reduction was employed with automatic exposure control. Sagittal and coronal reconstructions were provided as well. Findings: The cervical vertebral bodies are in gross anatomic alignment. There is no acute fracture. Moderate disc space loss present at C6/C7 with posterior disc bulging and small osteophytes. Moderate disc space loss present posteriorly at C5/C6. There is fusion of the right C2/C3 facet joint. There is no prevertebral soft tissue swelling. No cervical adenopathy is demonstrated. Multiple subcentimeter cervical lymph nodes are present, bilaterally. Impression: No acute osseous abnormality Examination: CT chest without contrast Indication: fall Technique: Axial CT images of the chest were obtained from the thoracic inlet through the lung bases at 1 mm intervals without IV contrast. Dose reduction was employed with automatic exposure control. Coronal and sagittal reconstructions were also provided for review. Findings: The aorta and pulmonary artery are grossly of normal caliber. No significant coronary artery calcification is present. The heart is not enlarged. Borderline slightly enlarged mediastinal lymph nodes present with alvin disease to the right of the speedy measuring 1.3 x 1.5 cm. Right basilar airspace disease present, greatest in the right lung base with consolidation. Patchy infiltrates of the right midlung as well. Small patchy left basilar infiltrate. Cholecystectomy changes present. There is a reverse left-sided shoulder arthroplasty. Mild to moderate degenerative changes of the thoracic spine are noted. Impression Diffuse infiltrate of the right mid and lower lung, greatest in the right lower lobe with consolidation. Mild left basilar infiltrate as well. Follow-up recommended to document resolution. Mediastinal adenopathy. Report Dictated on Electronically Signed By: Olya Kang MD Electronically Signed Date/Time: 09/23/2024 11:31 AM EST [facility] CT Cervical spine WO contras ton 09-23-2024 [facility] 1950 [id number] Exam Date/Time: 09/23/2024 11:10 Procedure: CT CERVICAL SPINE WO IV CONTRAST Ordering Provider: VILLATORO RYLEE Reason For Exam: fall Examination: CT head Technique: Axial CT images of the head were obtained without IV contrast at 5 mm intervals. Dose reduction was employed with automatic exposure control. Coronal and sagittal reconstructions were also provided Indication: fall Findings: Minimal diffuse parenchymal volume loss is noted, evidence by prominence of the ventricles and sulci. Moderate decreased attenuation is noted within the periventricular white matter, likely secondary to chronic small vessel ischemia. The albarran-white differentiation is grossly intact. There are no extra-axial fluid collections or acute intracranial hemorrhage appreciated. There is no midline shift identified. Moderate mucoperiosteal thickening of the right maxillary sinus present. There is moderate mucoperiosteal thickening and partial opacification of the ethmoid air cells. Mild mucoperiosteal thickening of the sphenoid sinuses is noted. The mastoid air cells are grossly unremarkable.. The bones are grossly unremarkable. Atherosclerotic calcification of the carotid siphons and distal vertebral arteries is noted. [facility] Olya Kang MD - 09/23/2024 Patient Name: IVAN WHEAT : 1950 [facility]#: [id number] Exam Date/Time: 09/23/2024 11:10 Procedure: CT CERVICAL SPINE WO IV CONTRAST Ordering Provider: VILLATORO RYLEE Reason For Exam: fall Examination: CT head Technique: Axial CT images of the head were obtained without IV contrast at 5 mm intervals. Dose reduction was employed with automatic exposure control. Coronal and sagittal reconstructions were also provided Indication: fall Findings: Minimal diffuse parenchymal volume loss is noted, evidence by prominence of the ventricles and sulci. Moderate decreased attenuation is noted within the periventricular white matter, likely secondary to chronic small vessel ischemia. The albarran-white differentiation is grossly intact. There are no extra-axial fluid collections or acute intracranial hemorrhage appreciated. There is no midline shift identified. Moderate mucoperiosteal thickening of the right maxillary sinus present. There is moderate mucoperiosteal thickening and partial opacification of the ethmoid air cells. Mild mucoperiosteal thickening of the sphenoid sinuses is noted. The mastoid air cells are grossly unremarkable.. The bones are grossly unremarkable. Atherosclerotic calcification of the carotid siphons and distal vertebral arteries is noted. IMPRESSION: Impression: Likely chronic small vessel ischemic changes in the periventricular white matter. No acute intracranial abnormality. Examination: CT cervical spine Indication: fall Technique: Axial CT images of the cervical spine were obtained at 1 mm intervals. Dose reduction was employed with automatic exposure control. Sagittal and coronal reconstructions were provided as well. Findings: The cervical vertebral bodies are in gross anatomic alignment. There is no acute fracture. Moderate disc space loss present at C6/C7 with posterior disc bulging and small osteophytes. Moderate disc space loss present posteriorly at C5/C6. There is fusion of the right C2/C3 facet joint. There is no prevertebral soft tissue swelling. No cervical adenopathy is demonstrated. Multiple subcentimeter cervical lymph nodes are present, bilaterally. Impression: No acute osseous abnormality Examination: CT chest without contrast Indication: fall Technique: Axial CT images of the chest were obtained from the thoracic inlet through the lung bases at 1 mm intervals without IV contrast. Dose reduction was employed with automatic exposure control. Coronal and sagittal reconstructions were also provided for review. Findings: The aorta and pulmonary artery are grossly of normal caliber. No significant coronary artery calcification is present. The heart is not enlarged. Borderline slightly enlarged mediastinal lymph nodes present with alvin disease to the right of the speedy measuring 1.3 x 1.5 cm. Right basilar airspace disease present, greatest in the right lung base with consolidation. Patchy infiltrates of the right midlung as well. Small patchy left basilar infiltrate. Cholecystectomy changes present. There is a reverse left-sided shoulder arthroplasty. Mild to moderate degenerative changes of the thoracic spine are noted. Impression Diffuse infiltrate of the right mid and lower lung, greatest in the right lower lobe with consolidation. Mild left basilar infiltrate as well. Follow-up recommended to document resolution. Mediastinal adenopathy. Report Dictated on Electronically Signed By: Olya Kang MD Electronically Signed Date/Time: 09/23/2024 11:31 AM EST [place] [facility] Chest WO contraston 09-23 [facility] 1950 [id number] Exam Date/Time: 09/23/2024 11:10 Procedure: CT CHEST WO IV CONTRAST Ordering Provider: VILLATORO RYLEE Reason For Exam: fall Examination: CT head Technique: Axial CT images of the head were obtained without IV contrast at 5 mm intervals. Dose reduction was employed with automatic exposure control. Coronal and sagittal reconstructions were also provided Indication: fall Findings: Minimal diffuse parenchymal volume loss is noted, evidence by prominence of the ventricles and sulci. Moderate decreased attenuation is noted within the periventricular white matter, likely secondary to chronic small vessel ischemia. The albarran-white differentiation is grossly intact. There are no extra-axial fluid collections or acute intracranial hemorrhage appreciated. There is no midline shift identified. Moderate mucoperiosteal thickening of the right maxillary sinus present. There is moderate mucoperiosteal thickening and partial opacification of the ethmoid air cells. Mild mucoperiosteal thickening of the sphenoid sinuses is noted. The mastoid air cells are grossly unremarkable.. The bones are grossly unremarkable. Atherosclerotic calcification of the carotid siphons and distal vertebral arteries is noted. [facility] Olya Kang MD - 09/23/2024 Patient Name: IVAN WHEAT : 1950 [facility]#: [id number] Exam Date/Time: 09/23/2024 11:10 Procedure: CT CHEST WO IV CONTRAST Ordering Provider: VILLATORO RYLEE Reason For Exam: fall Examination: CT head Technique: Axial CT images of the head were obtained without IV contrast at 5 mm intervals. Dose reduction was employed with automatic exposure control. Coronal and sagittal reconstructions were also provided Indication: fall Findings: Minimal diffuse parenchymal volume loss is noted, evidence by prominence of the ventricles and sulci. Moderate decreased attenuation is noted within the periventricular white matter, likely secondary to chronic small vessel ischemia. The albarran-white differentiation is grossly intact. There are no extra-axial fluid collections or acute intracranial hemorrhage appreciated. There is no midline shift identified. Moderate mucoperiosteal thickening of the right maxillary sinus present. There is moderate mucoperiosteal thickening and partial opacification of the ethmoid air cells. Mild mucoperiosteal thickening of the sphenoid sinuses is noted. The mastoid air cells are grossly unremarkable.. The bones are grossly unremarkable. Atherosclerotic calcification of the carotid siphons and distal vertebral arteries is noted. IMPRESSION: Impression: Likely chronic small vessel ischemic changes in the periventricular white matter. No acute intracranial abnormality. Examination: CT cervical spine Indication: fall Technique: Axial CT images of the cervical spine were obtained at 1 mm intervals. Dose reduction was employed with automatic exposure control. Sagittal and coronal reconstructions were provided as well. Findings: The cervical vertebral bodies are in gross anatomic alignment. There is no acute fracture. Moderate disc space loss present at C6/C7 with posterior disc bulging and small osteophytes. Moderate disc space loss present posteriorly at C5/C6. There is fusion of the right C2/C3 facet joint. There is no prevertebral soft tissue swelling. No cervical adenopathy is demonstrated. Multiple subcentimeter cervical lymph nodes are present, bilaterally. Impression: No acute osseous abnormality Examination: CT chest without contrast Indication: fall Technique: Axial CT images of the chest were obtained from the thoracic inlet through the lung bases at 1 mm intervals without IV contrast. Dose reduction was employed with automatic exposure control. Coronal and sagittal reconstructions were also provided for review. Findings: The aorta and pulmonary artery are grossly of normal caliber. No significant coronary artery calcification is present. The heart is not enlarged. Borderline slightly enlarged mediastinal lymph nodes present with alvin disease to the right of the speedy measuring 1.3 x 1.5 cm. Right basilar airspace disease present, greatest in the right lung base with consolidation. Patchy infiltrates of the right midlung as well. Small patchy left basilar infiltrate. Cholecystectomy changes present. There is a reverse left-sided shoulder arthroplasty. Mild to moderate degenerative changes of the thoracic spine are noted. Impression Diffuse infiltrate of the right mid and lower lung, greatest in the right lower lobe with consolidation. Mild left basilar infiltrate as well. Follow-up recommended to document resolution. Mediastinal adenopathy. Report Dictated on Electronically Signed By: Olya Kang MD Electronically Signed Date/Time: 09/23/2024 11:31 AM [facility] [place] [facility] HEAD WO IV CONTRASTon CT HEAD WO IV CONTRAST [facility] 1950 [id number] Exam Date/Time: 09/23/2024 11:10 Procedure: CT HEAD WO IV CONTRAST Ordering Provider: VILLATORO RYLEE Reason For Exam: fall Examination: CT head Technique: Axial CT images of the head were obtained without IV contrast at 5 mm intervals. Dose reduction was employed with automatic exposure control. Coronal and sagittal reconstructions were also provided Indication: fall Findings: Minimal diffuse parenchymal volume loss is noted, evidence by prominence of the ventricles and sulci. Moderate decreased attenuation is noted within the periventricular white matter, likely secondary to chronic small vessel ischemia. The albarran-white differentiation is grossly intact. There are no extra-axial fluid collections or acute intracranial hemorrhage appreciated. There is no midline shift identified. Moderate mucoperiosteal thickening of the right maxillary sinus present. There is moderate mucoperiosteal thickening and partial opacification of the ethmoid air cells. Mild mucoperiosteal thickening of the sphenoid sinuses is noted. The mastoid air cells are grossly unremarkable.. The bones are grossly unremarkable. Atherosclerotic calcification of the carotid siphons and distal vertebral arteries is noted. IMPRESSION: Impression: Likely chronic small vessel ischemic changes in the periventricular white matter. No acute intracranial abnormality. Examination: CT cervical spine Indication: fall Technique: Axial CT images of the cervical spine were obtained at 1 mm intervals. Dose reduction was employed with automatic exposure control. Sagittal and coronal reconstructions were provided as well. Findings: The cervical vertebral bodies are in gross anatomic alignment. There is no acute fracture. Moderate disc space loss present at C6/C7 with posterior disc bulging and small osteophytes. Moderate disc space loss present posteriorly at C5/C6. There is fusion of the right C2/C3 facet joint. There is no prevertebral soft tissue swelling. No cervical adenopathy is demonstrated. Multiple subcentimeter cervical lymph nodes are present, bilaterally. Impression: No acute osseous abnormality Examination: CT chest without contrast Indication: fall Technique: Axial CT images of the chest were obtained from the thoracic inlet through the lung bases at 1 mm intervals without IV contrast. Dose reduction was employed with automatic exposure control. Coronal and sagittal reconstructions were also provided for review. Findings: The aorta and pulmonary artery are grossly of normal caliber. No significant coronary artery calcification is present. The heart is not enlarged. Borderline slightly enlarged mediastinal lymph nodes present with alvin disease to the right of the speedy measuring 1.3 x 1.5 cm. Right basilar airspace disease present, greatest in the right lung base with consolidation. Patchy infiltrates of the right midlung as well. Small patchy left basilar infiltrate. Cholecystectomy changes present. There is a reverse left-sided shoulder arthroplasty. Mild to moderate degenerative changes of the thoracic spine are noted. Impression Diffuse infiltrate of the right mid and lower lung, greatest in the right lower lobe with consolidation. Mild left basilar infiltrate as well. Follow-up recommended to document resolution. Mediastinal adenopathy. Report Dictated on Electronically Signed By: Olya Kang MD Electronically Signed Date/Time: 09/23/2024 11:[address] [facility] CT Head WO contraston 2024 [facility] 1950 [id number] Exam Date/Time: 09/23/2024 11:10 Procedure: CT HEAD WO IV CONTRAST Ordering Provider: VILLATORO RYLEE Reason For Exam: fall Examination: CT head Technique: Axial CT images of the head were obtained without IV contrast at 5 mm intervals. Dose reduction was employed with automatic exposure control. Coronal and sagittal reconstructions were also provided Indication: fall Findings: Minimal diffuse parenchymal volume loss is noted, evidence by prominence of the ventricles and sulci. Moderate decreased attenuation is noted within the periventricular white matter, likely secondary to chronic small vessel ischemia. The albarran-white differentiation is grossly intact. There are no extra-axial fluid collections or acute intracranial hemorrhage appreciated. There is no midline shift identified. Moderate mucoperiosteal thickening of the right maxillary sinus present. There is moderate mucoperiosteal thickening and partial opacification of the ethmoid air cells. Mild mucoperiosteal thickening of the sphenoid sinuses is noted. The mastoid air cells are grossly unremarkable.. The bones are grossly unremarkable. Atherosclerotic calcification of the carotid siphons and distal vertebral arteries is noted. [facility] Olya Kang MD - 09/23/2024 [facility] 1950 [id number] Exam Date/Time: 09/23/2024 11:10 Procedure: CT HEAD WO IV CONTRAST Ordering Provider: VILLATORO RYLEE Reason For Exam: fall Examination: CT head Technique: Axial CT images of the head were obtained without IV contrast at 5 mm intervals. Dose reduction was employed with automatic exposure control. Coronal and sagittal reconstructions were also provided Indication: fall Findings: Minimal diffuse parenchymal volume loss is noted, evidence by prominence of the ventricles and sulci. Moderate decreased attenuation is noted within the periventricular white matter, likely secondary to chronic small vessel ischemia. The albarran-white differentiation is grossly intact. There are no extra-axial fluid collections or acute intracranial hemorrhage appreciated. There is no midline shift identified. Moderate mucoperiosteal thickening of the right maxillary sinus present. There is moderate mucoperiosteal thickening and partial opacification of the ethmoid air cells. Mild mucoperiosteal thickening of the sphenoid sinuses is noted. The mastoid air cells are grossly unremarkable.. The bones are grossly unremarkable. Atherosclerotic calcification of the carotid siphons and distal vertebral arteries is noted. IMPRESSION: Impression: Likely chronic small vessel ischemic changes in the periventricular white matter. No acute intracranial abnormality. Examination: CT cervical spine Indication: fall Technique: Axial CT images of the cervical spine were obtained at 1 mm intervals. Dose reduction was employed with automatic exposure control. Sagittal and coronal reconstructions were provided as well. Findings: The cervical vertebral bodies are in gross anatomic alignment. There is no acute fracture. Moderate disc space loss present at C6/C7 with posterior disc bulging and small osteophytes. Moderate disc space loss present posteriorly at C5/C6. There is fusion of the right C2/C3 facet joint. There is no prevertebral soft tissue swelling. No cervical adenopathy is demonstrated. Multiple subcentimeter cervical lymph nodes are present, bilaterally. Impression: No acute osseous abnormality Examination: CT chest without contrast Indication: fall Technique: Axial CT images of the chest were obtained from the thoracic inlet through the lung bases at 1 mm intervals without IV contrast. Dose reduction was employed with automatic exposure control. Coronal and sagittal reconstructions were also provided for review. Findings: The aorta and pulmonary artery are grossly of normal caliber. No significant coronary artery calcification is present. The heart is not enlarged. Borderline slightly enlarged mediastinal lymph nodes present with alvin disease to the right of the speedy measuring 1.3 x 1.5 cm. Right basilar airspace disease present, greatest in the right lung base with consolidation. Patchy infiltrates of the right midlung as well. Small patchy left basilar infiltrate. Cholecystectomy changes present. There is a reverse left-sided shoulder arthroplasty. Mild to moderate degenerative changes of the thoracic spine are noted. Impression Diffuse infiltrate of the right mid and lower lung, greatest in the right lower lobe with consolidation. Mild left basilar infiltrate as well. Follow-up recommended to document resolution. Mediastinal adenopathy. Report Dictated on Electronically Signed By: Olya Kang MD Electronically Signed Date/Time: 09/23/2024 11:31 AM [facility] ED Nursing Noteon 09-23-2024 ED Nursing Note Gave report to [facility] ED Provider Noteon ED Provider Note Emergency Department Encounter [facility] Patient: Andre Blanca : 1950 Date of Evaluation: 09/23/2024 ED Supervising Physician: Muna Edmonds MD I personally evaluated IVAN Wheat and made/approved the management plan and take responsibility for the patient management. This will serve as my Supervisory note and shared attestation. I did perform a substantive portion of the visit including all aspects of the Medical Decision Making. I wore appropriate PPE for the entirety of this encounter. In brief, Andre Blanca is a 74 y.o. that presents to the emergency department as a level 3 trauma activation after a fall. Reportedly fell at her nursing facility today with a witnessed fall and was found to be altered. She does take Plavix. Patient states that she has been feeling ill for the last couple of days. Endorses some shortness of breath and a cough. Complaining of some pain to her left hip and has a history of a hip replacement. Focused exam: Chronically appearing female in no acute distress. Vital signs reviewed and notable for hypotension and hypoxia requiring supplemental oxygen. Lungs are rhonchorous bilaterally worse on the right compared to the left. Some mild increased work of breathing with speaking full sentences. Abdomen soft and nontender to palpation. She has full range of motion of her left lower extremity and right lower extremity. No obvious signs of trauma to the extremities. Brief ED course/MDM: 74-year-old female present emergency department today as a level 3 trauma activation after a fall. She is hypotensive upon arrival and tachypneic and hypoxic. She had a witnessed fall at her nursing facility but has been sick over the last few days. I think is more likely infectious causing her confusion and her hypoxia rather than from the traumatic injury however we will send for scans. Labs are also done here in the emergency department. She was fluid resuscitated in the trauma bay. CT scan of her head does not show any acute findings. Chest x-ray that was done in the trauma bay does not show a right-sided pneumonia. X-ray of her pelvis does not show any acute findings per my interpretation. CT scan of her head and C-spine is unremarkable. Hide CT scan of her chest does show this right sided mid and lower lung pneumonia. Started on antibiotics for this and plan will be to admit the patient for hypoxia and confusion secondary to pneumonia. Her blood pressures continues to be soft. We will give her a second liter of fluids to see if she is fluid responsive versus requiring pressors. Her pressures did finally settle down and did not require pressors. Patient will be admitted for her pneumonia. Admitted in stable but guarded condition. CRITICAL CARE TIME Total Critical Care time was 45 minutes, excluding separately reportable procedures. There was a high probability of clinically significant/life threatening deterioration in the patient's condition which required my urgent intervention. Diagnostics interpreted by me: chest x-ray, pelvis x-ray I personally discussed the patient's management with other clinicians: All diagnostic, treatment, and disposition decisions were made by myself in conjunction with the Resident. I also supervised beck portions of any procedures performed by the Resident. For all further details of the patient's emergency department visit, please see their documentation. (Comment: Please note this report has been produced using speech recognition software and may contain errors related to that system including errors in grammar, punctuation, and spelling, as well as words and phrases that may be inappropriate. If there are any questions or concerns please feel free to contact the dictating provider for clarification.) Muna Edmonds MD Acute Care [facility] Muna Edmonds MD 09/23/24 1507 Muna Edmonds MD 09/23/24 1507 [facility] ED Provider Note EMERGENCY DEPARTMENT ENCOUNTER Pt Name: Andre Blanca Birthdate 1950 Date of evaluation: 09/23/2024 ED Provider: Anitra Villatoro MD CHIEF COMPLAINT Chief Complaint Patient presents with Fall Fall and hit head on floor. c/o R hip pain. Baseline Aox3, per EMS Aox1-2. Takes plavix and has been feeling ill lately. HISTORY OF PRESENT ILLNESS (Location/Symptom, Timing/Onset, Context/Setting, Quality, Duration, Modifying Factors, Severity) Note limiting factors. I wore appropriate PPE for the entirety of this encounter. HPI Andre Blanca is a 74 y.o. female who presents to the emergency department for fall. Presenting from SNF. Fall was witnessed. There was no loss of consciousness and fall was mechanical in nature. Patient is not complaining of new pain since the fall but was noted to have an abrasion to her forehead and is on Plavix. Has been feeling ill for 3 to 4 days. Has been on 3 L of oxygen for the past 3 days at her facility which is a new requirement. Complains of subjective fever and chills and productive cough. Denies chest pain, abdominal pain. Complains of chronic left hip pain which she states is unchanged from her baseline. Nursing Notes were reviewed. Limitations to history: Outside historians: REVIEW OF SYSTEMS Review of Systems Pertinent positives and negatives as per HPI. PAST MEDICAL HISTORY No past medical history on file. SURGICAL HISTORY No past surgical history on file. CURRENT MEDICATIONS Current Discharge Medication List CONTINUE these medications which have NOT CHANGED Details busPIRone (Buspar) 10 MG tablet Take 10 mg by mouth 3 times daily. carBAMazepine (TEGretol) 200 MG tablet Take 200 mg by mouth 3 times daily. clopidogrel (Plavix) 75 MG tablet Take 75 mg by mouth daily. fludrocortisone (Florinef) 0.1 MG tablet Take 0.1 mg/day by mouth daily. folic acid (Folvite) 1 MG tablet Take 1 mg by mouth daily. guaiFENesin (Mucinex) 600 MG 12 hr tablet Take 600 mg by mouth 2 times daily. Do not crush, chew, or split. hydrOXYzine pamoate (Vistaril) 25 MG capsule Take 25 mg by mouth 2 times daily. levothyroxine (Tirosint) 88 MCG capsule Take 88 mcg by mouth every morning (before breakfast). meclizine (Antivert) 25 MG tablet Take 12.5 mg by mouth every 8 hours as needed for dizziness. Melatonin 10 MG capsule Take 10 mg by mouth Nightly. pantoprazole (ProtoNix) 20 MG EC tablet Take 40 mg by mouth 2 times daily. Do not crush, chew, or split. potassium chloride ER (Micro-K) 10 MEQ ER capsule Take 20 mEq by mouth 2 times daily. Do not crush or chew. pravastatin (Pravachol) 40 MG tablet Take 40 mg by mouth Nightly. pregabalin (Lyrica) 150 MG capsule Take 150 mg by mouth 2 times daily. QUEtiapine (SEROquel) 25 MG tablet Take 25 mg by mouth 2 times daily. risperiDONE (RisperDAL) 0.5 MG tablet Take 0.5 mg by mouth 2 times daily. therapeutic multivitamin-minerals (Theragran-M) tablet Take 1 tablet by mouth daily. tiZANidine (Zanaflex) 2 MG capsule Take 2 mg by mouth 2 times daily. traZODone (Desyrel) 150 MG tablet Take 150 mg by mouth Nightly. venlafaxine (Effexor) 75 MG tablet Take 75 mg by mouth daily. ALLERGIES Aspirin, Butorphanol, Hydromorphone, Ibuprofen, Oxycodone, Prochlorperazine, Salicylamide, Sulfa antibiotics, and Sumatriptan FAMILY HISTORY No family history on file. SOCIAL HISTORY Social History Socioeconomic History Marital status: [employer] Intimate Partner Violence: Not At Risk (09/23/2024) Humiliation, Afraid, Rape, and Kick questionnaire Fear of Current or Ex-Partner: No Emotionally Abused: No Physically Abused: No Sexually Abused: No SCREENINGS [place] Coma Scale Best Eye Response: Spontaneous Best Verbal Response: Confused Best Motor Response: Follows commands [place] Coma Scale Score: 14 PHYSICAL EXAM ED Triage Vitals Temp Heart Rate Resp BP 09/23/24 1046 09/23/24 1045 09/23/24 1053 09/23/24 1047 37 ?C (98.6 ?F) 68 25 (!) 85/46 SpO2 Temp src Heart Rate Source Patient Position 09/23/24 1045 -- -- -- (!) 88 % BP Location FiO2 (%) -- -- Physical Exam Vitals and nursing note reviewed. Constitutional: General: She is not in acute distress. Appearance: She is well-developed. HENT: Head: Normocephalic and atraumatic. Eyes: Conjunctiva/sclera: Conjunctivae normal. Neck: Comments: Hard cervical collar in place Cardiovascular: Rate and Rhythm: Normal rate and regular rhythm. Pulmonary: Breath sounds: Rales present. No wheezing or rhonchi. Comments: Mild accessory mm use; good air movement throughout Abdominal: General: There is no distension. Palpations: Abdomen is soft. Tenderness: There is no abdominal tenderness. There is no guarding or rebound. Musculoskeletal: Comments: Able to AP and lateral compression. Left hip appears internally rotated, the patient does have full active range of motion. No CT or (more content not included)... 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 NOTE: This result is for medical treatment only. Analysis performed using non-forensic procedures. Performed By: #### L [id number], LAB46, LAB15, [id number], [id number] ####New Accounts Clerk: STAR DE LA ROSA ([phone])[facility] ([facility])[address] [place] [address] Ethanol (Bld) [Mass/Vol]on 0 09-23-2024 Ethanol [Mass/Vol] mg/dL NINF - 10 mg/dL [facility] MAINTENANCE GROUNDSKEEPER depression is se en >100 mg/dL. NOTE: This result is for medical treatment only. Analysis performed using non-forensic procedures. [facility] LACTIC ACID WITH REFLEXon Lactate [Moles/Vol] 1.3 mmol/L Normal 0.5-2.2 [facility] Comment on above: Performed By: #### L [id number] ####New Accounts Clerk: STAR DE LA ROSA ([phone])[facility] ([facility])[address] [place] [address] LEGIONELLA AND STREPTOCOCCUS URINE ANTIGENon 09-23-2024 LEGIONELLA AND STREPTOCOCCUS URINE ANTIGEN LEGIONELLA PNEUMOPHILA URINE ANTIGEN Reference Not Detected Not Detected STREPTOCOCCUS PNEUMONIAE URINE ANTIGEN Reference Not Detected Not Detected ORDER COMMENTS: Methodology: Lateral flow enzyme immunoassay This assay is approved for detection of antigens to Streptococcus pneumoniae and Legionella pneumophila serogroup 1; however, other L. pneumophila serogroups may also be detected. Normal [facility] Comment on above: Performed By: #### L [id number] ####New Accounts Clerk: STAR DE LA ROSA ([phone])[facility] ([facility])[address] [place] [address] Laboratory - Chemistry and C hemistry - challengeon 09-23-2024 Procalcitonin [Mass/Vol] 0.18 ng/mL High NINF - 0.07 ng/mL [facility] Lactate [Moles/Vol] 1.3 mmol/L 0.5 - 2. 2 mmol/L [facility] Magnesium [Mass/Vol] 1.5 mg/dL Low 1.6 - 2 .6 mg/dL [facility] Laboratory - Coagulationon 0 09-23-2024 aPTT Coag (PPP) [Time] 29.8 s 20.0 - 30.5 s [facility] INR Coag (PPP) [Relative time] 1.2 {INR} High 0.9 - 1.1 [facility] Comment on above: Recommended Anticoag ulant Therapy: SEE BELOW ----- INR of 2.0 - 3.0 : - Prophylaxis of Venous Thrombosis (high-risk surgery) - Treatment of Venous Thrombosis - Treatment of Pulmonary Embolism (Includes tissue heart valves, Acute Myocardial Infarction to prevent systemic embolism, Valvular Heart Disease, and Atrial Fibrillation) ----- INR of 2.5 - 3.5 : - Mechanical Prosthetic Valves (high risk) - If oral anticoagulant therapy is used to prevent Myocardial Infarction PT Coag (Bld) [Time] 12.9 s High 9.0 - 12.0 s [facility] Laboratory - Microbiology an d Antimicrobial susceptibilityon 09-23-2024 FLUAV RNA KAMLA+probe Ql (Resp) Not detected Not Detected [facility] FLUBV RNA KAMLA+probe Ql (Resp) Not detected Not Detected [facility] RSV RNA KAMLA+probe Ql (Resp) Not detected Not Detected [facility] SARS-CoV-2 (COVID-19) RNA KAMLA+probe Ql (Resp) Not detected Not Detected [facility] MAGNESIUMon 09-23-2024 Magnesium [Mass/Vol] 1.5 mg/dL Low 1.6-2.6 [facility] Comment on above: Result Comment: KAMILLA Gill COMMENTS: Higher values can be expected in females during menses. Performed By: #### L [id number], LAB46, LAB15, [id number], [id number] ####New Accounts Clerk: STAR DE LA ROSA ([phone])[facility] ([facility] Magnesium [Mass/Vol]on 09-23 Higher values can be expected in females during menses. [facility] No Panel InformationOrdered By: Nidia Peters on 09-23-2024 Interpretation and review of laboratory results Normal [facility] Legionella pneumophila Ag Not detected Not Detected [facility] Streptococcus pneumoniae Ag Not detected Not Detected [facility] Methodology: Lateral flow enzyme immunoassay This assay is approved for detection of antigens to Streptococcus pneumoniae and Legionella pneumophila serogroup 1; however, other L. pneumophila serogroups may also be detected. [facility] No Panel Informationon 09-23 Impression: Likely chronic small vessel ischemic changes in the periventricular white matter. No acute intracranial abnormality. Examination: CT cervical spine Indication: fall Technique: Axial CT images of the cervical spine were obtained at 1 mm intervals. Dose reduction was employed with automatic exposure control. Sagittal and coronal reconstructions were provided as well. Findings: The cervical vertebral bodies are in gross anatomic alignment. There is no acute fracture. Moderate disc space loss present at C6/C7 with posterior disc bulging and small osteophytes. Moderate disc space loss present posteriorly at C5/C6. There is fusion of the right C2/C3 facet joint. There is no prevertebral soft tissue swelling. No cervical adenopathy is demonstrated. Multiple subcentimeter cervical lymph nodes are present, bilaterally. Impression: No acute osseous abnormality Examination: CT chest without contrast Indication: fall Technique: Axial CT images of the chest were obtained from the thoracic inlet through the lung bases at 1 mm intervals without IV contrast. Dose reduction was employed with automatic exposure control. Coronal and sagittal reconstructions were also provided for review. Findings: The aorta and pulmonary artery are grossly of normal caliber. No significant coronary artery calcification is present. The heart is not enlarged. Borderline slightly enlarged mediastinal lymph nodes present with alvin disease to the right of the speedy measuring 1.3 x 1.5 cm. Right basilar airspace disease present, greatest in the right lung base with consolidation. Patchy infiltrates of the right midlung as well. Small patchy left basilar infiltrate. Cholecystectomy changes present. There is a reverse left-sided shoulder arthroplasty. Mild to moderate degenerative changes of the thoracic spine are noted. Impression Diffuse infiltrate of the right mid and lower lung, greatest in the right lower lobe with consolidation. Mild left basilar infiltrate as well. Follow-up recommended to document resolution. Mediastinal adenopathy. Report Dictated on Electronically Signed By: Olya Kang MD Electronically Signed Date/Time: 09/23/2024 11:31 AM [facility] Interpretation and review of laboratory results Normal [facility] Interpretation and review of laboratory results Abnormal [facility] Interpretation and review of laboratory results Abnormal [facility] Radiology Study observation (narrative) [facility] No Panel InformationOrdered By: Olya Kang on 09-23-2024 [facility] Work Phone: Nursing Noteon 09-23-2024 Nursing Note Pt took 3 yellow colored rings off. This RN found them on the floor next to her bed. Placed in specimen cup with pt label on pt's bedside table. Normal [facility] PHOSPHORUSon 09-23-2024 Phosphate [Mass/Vol] 2.5 mg/dL Normal 2.3-4.7 [facility] Comment on above: Performed By: #### L AB113, LAB46, LAB15, [id number], [id number] ####New Accounts Clerk: STAR DE LA ROSA ([phone])[facility])[address] [place] [address] PROCALCITONIN TESTon 025 PROCALCITONIN 0.18 ng/mL High <0.07 [facility] Comment on above: Result Comment: KAMILLA Gill COMMENTS: PCT <0.50 = Low risk of severe sepsis and/or septic shock. PCT >2.00 = High risk of severe sepsis and/or septic shock. Performed By: #### L AB113, LAB46, LAB15, [id number], [id number] ####New Accounts Clerk: STAR DE LA ROSA ([phone])[facility])[address] [place] [address] PROTIME AND APTTon aPTT Coag (Bld) [Time] 29.8 s Normal 20.0-30.5 [facility] Comment on above: Performed By: #### L [id number] ####New Accounts Clerk: STAR DE LA ROSA ([phone])[facility])[address] [place] [address] INR Coag (PPP) [Relative time] 1.2 {INR} High 0.9-1.1 [facility] Comment on above: Result Comment: Que mmended Anticoagulant Therapy: SEE BELOW ----- INR of 2.0 - 3.0 : - Prophylaxis of Venous Thrombosis (high-risk surgery) - Treatment of Venous Thrombosis - Treatment of Pulmonary Embolism (Includes tissue heart valves, Acute Myocardial Infarction to prevent systemic embolism, Valvular Heart Disease, and Atrial Fibrillation) ----- INR of 2.5 - 3.5 : - Mechanical Prosthetic Valves (high risk) - If oral anticoagulant therapy is used to prevent Myocardial Infarction Performed By: #### L [id number] ####New Accounts Clerk: STAR DE LA ROSA ([phone])[facility] ([facility])[address] [place] [id number] [place] [address] PT Coag (PPP) [Time] 12.9 s High 9.0-12.0 [facility] Comment on above: Performed By: #### L [id number] ####New Accounts Clerk: STAR DE LA ROSA ([phone])[facility] [place] [address] [place] Phosphate [Moles/Vol]on 09-14 Phosphate [Mass/Vol] 2.5 mg/dL 2.3 - 4 .7 mg/dL [facility] Procalcitonin [Mass/Vol]on 09-23-2024 Interpretation and review of laboratory results Abnormal [facility] PCT <0.50 = Low risk of severe sepsis and/or septic shock. PCT >2.00 = High risk of severe sepsis and/or septic shock. [facility] RESPIRATORY PATHOGENS PANEL BY PCRon 09-23-2024 RESPIRATORY PATHOGENS PANEL BY PCR SARS-COV-2 Reference Not Detected Not Detected ADENOVIRUS Reference Not Detected Not Detected CORONAVIRUS HKU1 Reference Not Detected Not Detected CORONAVIRUS NL63 (A) Reference Detected Not Detected CORONAVIRUS 229E Reference Not Detected Not Detected CORONAVIRUS OC43 Reference Not Detected Not Detected HUMAN METAPNEUMOVIRUS Reference Not Detected Not Detected HUMAN RHINOVIRUS/ENTEROVIRUS Reference Not Detected Not Detected INFLUENZA A Reference Not Detected Not Detected INFLUENZA B Reference Not Detected Not Detected PARAINFLUENZA 1 Reference Not Detected Not Detected PARAINFLUENZA 2 Reference Not Detected Not Detected PARAINFLUENZA 3 Reference Not Detected Not Detected PARAINFLUENZA 4 Reference Not Detected Not Detected RESPIRATORY SYNCYTIAL VIRUS Reference Not Detected Not Detected BORDETELLA PERTUSSIS Reference Not Detected Not Detected BORDETELLA PARAPERTUSSIS Reference Not Detected Not Detected CHLAMYDIA PNEUMONIAE Reference Not Detected Not Detected MYCOPLASMA PNEUMONIAE Reference Not Detected Not Detected ORDER COMMENTS: Methodology: Multiplex PCR Normal [facility] Comment on above: Performed By: #### L [id number], [id number] ####New Accounts Clerk: STAR DE LA ROSA ([phone])[facility])[address] [place] [address] SARS-COV-2, FLU A/B, AND RSV COMBOon 09-23-2024 SARS-CoV-2 (COVID-19) RNA KAMLA+probe Ql (Unsp spec) SARS-COV-2 Reference Not Detected Not Detected RESPIRATORY SYNCYTIAL VIRUS Reference Not Detected Not Detected INFLUENZA A (CEPHEID) Reference Not Detected Not Detected INFLUENZA B (CEPHEID) Reference Not Detected Not Detected ORDER COMMENTS: Methodology: real-time, RT-PCR Normal [facility] Comment on above: Performed By: #### L [id number], [id number] ####New Accounts Clerk: STAR DE LA ROSA ([phone])[facility] ([facility])[address] [place] [address] SARS-CoV-2, Flu A/B, and RSV Comboon 09-23-2024 Interpretation and review of laboratory results Normal [facility] Methodology: real-time, RT-PCR [facility] XR Chest Single viewon 09-23 Coarsening of the interstitial lung markings is likely chronic. Blunting of the right costophrenic angle may represent atelectasis, infiltrate, and/or pleural effusion. [facility]. Report Dictated on Electronically Signed By: Troy Rubin MD Electronically Signed Date/Time: 09/23/2024 11:11 AM [facility] Patient Name: IVAN WHEAT : 1950 Exam Date/Time: 09/23/2024 10:59 Procedure: XR CHEST 1 VIEW Ordering Provider: VILLATORO RYLEE Reason For Exam: TRAUMA PORTABLE CHEST X-RAY CLINICAL INDICATION: Pain after trauma A portable frontal view of the chest was obtained. COMPARISON: None FINDINGS: The cardiac silhouette is within normal limits. Coarsening of the interstitial lung markings is noted, likely chronic. Blunting of the right costophrenic angle may represent right basilar atelectasis, infiltrate, and/or small effusion. The left lung appears grossly clear. There are degenerative changes of the thoracic spine. Left shoulder arthroplasty is incompletely visualized. [facility] Troy Rubin MD - 09/23/2024 Patient Name: IVAN WHEAT : 1950 Exam Date/Time: 09/23/2024 10:59 Procedure: XR CHEST 1 VIEW Ordering Provider: VILLATORO RYLEE Reason For Exam: TRAUMA PORTABLE CHEST X-RAY CLINICAL INDICATION: Pain after trauma A portable frontal view of the chest was obtained. COMPARISON: None FINDINGS: The cardiac silhouette is within normal limits. Coarsening of the interstitial lung markings is noted, likely chronic. Blunting of the right costophrenic angle may represent right basilar atelectasis, infiltrate, and/or small effusion. The left lung appears grossly clear. There are degenerative changes of the thoracic spine. Left shoulder arthroplasty is incompletely visualized. IMPRESSION: Coarsening of the interstitial lung markings is likely chronic. Blunting of the right costophrenic angle may represent atelectasis, infiltrate, and/or pleural effusion. Follow-up to [facility] is recommended. Report Dictated on Electronically Signed By: Troy Rubin MD Electronically Signed Date/Time: 09/23/2024 11:11 AM EST [facility] Radiology Study observation (narrative) [facility] XR Chest Single viewOrdered By: Troy Rubin on 09-23-2024 [facility] [employer] XR Pelvis 1 or 2 Viewson 1. No acute fracture or dislocation. 2. Osteitis pubis. Report Dictated on Electronically Signed By: Praneeth Roberts MD Electronically Signed Date/Time: 09/23/2024 11:24 AM EST [facility] Patient Name: IVAN WHEAT : 1950 Exam Date/Time: 09/23/2024 10:59 Procedure: XR PELVIS 1-2 VIEWS Ordering Provider: VILLATORO RYLEE Reason For Exam: TRAUMA EXAM: XR Pelvis, 1 or 2 Views CLINICAL INDICATION: TRAUMA Status post trauma with pelvic pain. TECHNIQUE: Frontal view of the pelvis. COMPARISON: None available. FINDINGS: Limitations: Patient positioning/field-of-v iew. Overlying bowel gas and stool. Bones/joints: No acute fracture or dislocation. Left hip hemiarthroplasty prosthesis in place. 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 Osteitis pubis. Degenerative changes in the sacroiliac joints. Degenerative spondylosis in the visualized spine. Soft tissues: Within normal limits. No significant soft tissue abnormality. [facility] Nikolas Roberts MD - 09/23/2024 [facility] Name: [facility] 1950 [id number] Exam Date/Time: 09/23/2024 10:59 Procedure: XR PELVIS 1-2 VIEWS Ordering Provider: VILLATORO RYLEE Reason For Exam: TRAUMA EXAM: XR Pelvis, 1 or 2 Views CLINICAL INDICATION: TRAUMA Status post trauma with pelvic pain. TECHNIQUE: Frontal view of the pelvis. COMPARISON: None available. FINDINGS: Limitations: Patient positioning/field-of-v iew. Overlying bowel gas and stool. Bones/joints: No acute fracture or dislocation. Left hip hemiarthroplasty prosthesis in place. 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 Osteitis pubis. Degenerative changes in the sacroiliac joints. Degenerative spondylosis in the visualized spine. Soft tissues: Within normal limits. No significant soft tissue abnormality. IMPRESSION: 1. No acute fracture or dislocation. 2. Osteitis pubis. Report Dictated on Electronically Signed By: Praneeth Roberts MD Electronically Signed Date/Time: 09/23/2024 11:24 AM EST [employer] Radiology Study observation (narrative) [employer] XR Pelvis 1 or 2 ViewsOrdere d By: Nikolas Roberts on 09-23-2024 [employer] Work Phone: [phone] DOrdered By: Jarod Izquierdo on 07-29-2024 Vitamin D 25-Hydroxy 34.2 ng/mL [facility] Comment on above: Vitamin D 25(OH) Sta tus Range Deficiency <20 ng/mL (50nmol/L) Insufficiency 20 - 30 ng/mL (50 - 75 nmol/L) Sufficiency 30 - 100 ng/mL (75 - 250 nmol/L) Toxicity >100 ng/mL (>250 nmol/L) Vitamin D,25 Hydroxyon 07-29 Vitamin D 25-OH 34.2 ng/mL Normal [facility] Comment on above: Order Comment: Result Comment: Elise min D 25(OH) Status Range Deficiency <20 ng/mL (50nmol/L) Insufficiency 20 - 30 ng/mL (50 - 75 nmol/L) Sufficiency 30 - 100 ng/mL (75 - 250 nmol/L) Toxicity >100 ng/mL (>250 nmol/L) Performed By: #### L 506.1000 #### [facility] [address] [place], [address] Automated blood erythrocyte countOrdered By: Kianna Izquierdo on 07-08-2024 RBC (Bld) [#/Vol] 4.36 10*6/uL Normal 4.2-5.4 [facility] Comment on above: Order Comment: Performed By: #### L 100.0500, L500.2500 #### [facility] [address] [place], [address] Automated blood hematocrit ( percentage)Ordered By: Kianna Izquierdo on 07-08-2024 Hematocrit (Bld) [Volume fraction] 41.4 % Normal 37-47 [facility] Comment on above: Order Comment: Performed By: #### L 100.0500, L500.2500 #### [facility] [address] [place], [address] Basic Metabolic Profile (BMP )on 07-08-2024 BUN/CRE 14.0 RATIO Normal 10-20 [facility] Comment on above: Order Comment: - Performed By: #### L 100.0500, L500.2500 #### [facility] [address] [place], [address] CA,Total 8.6 mg/dL Normal 8.5-10.1 [facility] Comment on above: Order Comment: - Performed By: #### L 100.0500, L500.2500 #### [facility] [address] [place], [address] EST GFR - AA 92 mL/min Normal >60 [facility] Comment on above: Order Comment: 408 Result Comment: Afri can Hungarian GFR Calc Performed By: #### L 100.0500, L500.2500 #### [facility] [address] [place], [address] GAP 3 Low 5-15 [facility] Comment on above: Order Comment: Performed By: #### L 100.0500, L500.2500 #### [facility] [address] [place], [address] GFR/1.73 sq M.predicted among non-blacks MDRD (S/P/Bld) [Vol rate/Area] 76 mL/min/{1.73_m2} Normal >60 [facility] Comment on above: Order Comment: Result Comment: Non- GFR Calc Performed By: #### L 100.0500, L500.2500 #### [facility] [address] [place], [address] Blood urea nitrogen (BUN)/cr eatinine ratioOrdered By: Kianna Izquierdo on 07-08-2024 Urea nitrogen/Creatinine [Mass ratio] 14.0 mg/mg 10-20 [facility] CBC-Complete Blood Cnt No Di ffon 07-08-2024 RDW SD 46.4 fl High 35.1-43.9 [facility] Comment on above: Order Comment: Performed By: #### L 100.0500, L500.2500 #### [facility] [address] [place], [address] Carbon dioxide measurementOr dered By: Kianna Izquierdo on 07-08-2024 CO2 [Moles/Vol] 28.0 mmol/L Normal 21.0-32.0 [facility] Comment on above: Order Comment: 408-1 Performed By: #### L 100.0500, L500.2500 #### [facility] [address] [place], [place], [address] Chloride measurementOrdered By: Kianna Izquierdo on 07-08-2024 Chloride [Moles/Vol] 108 mmol/L High 98-107 [facility] Comment on above: Order Comment: 408-1 Performed By: #### L 100.0500, L500.2500 #### [facility] [address] [place], [address] Erythrocyte distribution wid th ratioOrdered By: Kianna Izquierdo on 07-08-2024 Erythrocyte distribution width (RBC) [Ratio] 13.2 % Normal 11.6-14.6 [facility] Comment on above: Order Comment: 408-1 Performed By: #### L 100.0500, L500.2500 #### [facility] [address] [place], [place], [id number] Erythrocyte distribution wid th standard deviationOrdered By: Kianna Izquierdo on 07-08-2024 Erythrocyte distribution width (RBC) [Entitic vol] 46.4 fL High 35.1-43.9 [facility] Estimated glomerular filtrat ion rate (GFR) AmericanOrdered By: Kianna Izquierdo on 07-08-2024 Estimated GFR (MDRD) Amer 92 mL/min >60 [facility] Comment on above: GFR Calc Glomerular filtration rate ( GFR) estimationOrdered By: Kianna Izquierdo on 07-08-2024 Estimated GFR (MDRD) Non-Af Amer 76 mL/min >60 [facility] Comment on above: Non- GFR Calc Glucose measurementOrdered B y: Kianna Izquierdo on 07-08-2024 Glucose [Mass/Vol] 92 mg/dL Normal 74-106 [facility] Comment on above: Order Comment: 408-1 Performed By: #### L 100.0500, L500.2500 #### [facility] [address] [place], [address] Hemoglobin measurementOrdere d By: Kianna Izquierdo on 07-08-2024 Hemoglobin (Bld) [Mass/Vol] 13.6 g/dL Normal 12.0-15.0 [facility] Comment on above: Order Comment: 408- Performed By: #### L 100.0500, L500.2500 #### [facility] [address] [place], [address] MCV (mean corpuscular volume ) determinationOrdered By: Kianna Izquierdo on 07-08-2024 MCV (RBC) [Entitic vol] 95.0 fL Normal 81-99 [facility] Comment on above: Order Comment: - Performed By: #### L 100.0500, L500.2500 #### [facility] [address] [place], [address] Mean corpuscular hemoglobin (MCH) determinationOrdered By: Kianna Izquierdo on 07-08-2024 MCH (RBC) [Entitic mass] 31.2 pg Normal 27.0-32.0 [facility] Comment on above: Order Comment: Performed By: #### L 100.0500, L500.2500 #### [facility] [address] [place], [address] Mean corpuscular hemoglobin concentration (MCHC) determinationOrdered By: Kianna Izquierdo on 07-08-2024 MCHC (RBC) [Mass/Vol] 32.9 g/dL Normal 32-36 [facility] Comment on above: Order Comment: - Performed By: #### L 100.0500, L500.2500 #### [facility] [address] [place], [address] Mean platelet volume determi nationOrdered By: Kianna Izquierdo on 07-08-2024 Platelet mean volume (Bld) [Entitic vol] 10.3 fL Normal 6.2-12.0 [facility] Comment on above: Order Comment: 408- Performed By: #### L 100.0500, L500.2500 #### [facility] Laboratory [address] [place], [address] Platelet countOrdered By: Doc Deras on 07-08-2024 Platelets (Bld) [#/Vol] 196 10*3/uL Normal 150-450 [facility] Comment on above: Order Comment: 408- Performed By: #### L 100.0500, L500.2500 #### [facility] [address] [place], [address] Potassium measurementOrdered By: Kianna Izquierdo on 07-08-2024 Potassium [Moles/Vol] 4.1 mmol/L Normal 3.5-5.1 [facility] Comment on above: Slight Hemolysis, Re sult may be falsely increased. Order Comment: Result Comment: Slig ht Hemolysis, Result may be falsely increased. Performed By: #### L 100.0500, L500.2500 #### [facility] [address] [facility] [place], [address] Serum anion gap measurementO rdered By: Kianna Izquierdo on 07-08-2024 Anion gap [Moles/Vol] 3 mmol/L Low 5-15 [facility] Serum or plasma calcium carlie urement (mass/volume)Ordered By: Kianna Izquierdo on 07-08-2024 Calcium [Mass/Vol] 8.6 mg/dL 8.5-10.1 [facility] Serum or plasma creatinine m easurement (mass/volume)Ordered By: Kianna Izquierdo on 07-08-2024 Creatinine [Mass/Vol] 0.79 mg/dL Normal 0.55-1.02 [facility] Comment on above: The validity of the calculated GFR & GFRAA in patients over 70 years has not been determined. Clinical correlation is essential. Order Comment: Result Comment: The validity of the calculated GFR GFRAA in patients over 70 years has not been determined. Clinical correlation is essential. Performed By: #### L 100.0500, L500.2500 #### [facility] [address] [place], [address] Serum or plasma urea nitroge n measurement (mass/volume)Ordered By: Kianna Izquierdo on 07-08-2024 Urea nitrogen [Mass/Vol] 11 mg/dL Normal 7-18 [facility] Comment on above: Order Comment: 408-1 Performed By: #### L 100.0500, L500.2500 #### [facility] [address] [place], [address] Sodium levelOrdered By: Manpreet Izquierdo on 07-08-2024 Sodium [Moles/Vol] 139 mmol/L Normal 136-145 [facility] Comment on above: Order Comment: 408-1 Performed By: #### L 100.0500, L500.2500 #### [facility] [address] [place], [address] White blood cell (WBC) count Ordered By: Kianna Izquierdo on 07-08-2024 WBC (Bld) [#/Vol] 9.1 10*3/uL Normal 4.4-11.0 [facility] Comment on above: Order Comment: 408-1 Performed By: #### L 100.0500, L500.2500 #### [facility] [address] [place], [address] MR Chest WO contraston 06-18 Moderate right hip osteoarthritis. The anterior superior labrum of the right hip also appears torn. No avascular necrosis. Left hip hemiarthroplasty with associated susceptibility artifact. Report Dictated on Electronically Signed By: Olya Kang MD Electronically Signed Date/Time: 06/18/2024 3:25 PM [facility] RADIOLOGY SYSTEM Patient Name: ANDRE BLANCA : 1950 Exam Date/Time: 06/18/2024 11:01 Procedure: MR HIP RIGHT WO IV CONTRAST Ordering Provider: LAUREANO RYAN Reason For Exam: AVN EXAMINATION: MRI right hip INDICATION: AVN TECHNIQUE: Multiplanar multi-sequence MRI images of the right hip were obtained. Coronal and axial imaging views the bilateral hips and pelvis. FINDINGS: Comparison: Radiographs from August 2023 Moderate degenerative changes of the right hip present with articular cartilage thinning and small osteophytes about the femoral head. Small joint effusion of the right hip noted. The anterior superior labrum of the right hip appears torn on the oblique axial images as well as sagittal image 16. Left hip hemiarthroplasty is present with associated susceptibility artifact. The SI joints are grossly unremarkable. The bony pelvis is otherwise unremarkable. There is at least moderate degenerative disc disease of the lower lumbar spine. The gluteal tendon insertions appear grossly intact on the greater trochanters. The hamstring origins appear grossly intact.The musculature about the pelvis is unremarkable. The pelvic contents are grossly unremarkable. [facility] Olya Kang MD - 06/18/2024 Patient Name: ANDRE BLANCA : 1950 Exam Date/Time: 06/18/2024 11:01 Procedure: MR HIP RIGHT WO IV CONTRAST Ordering Provider: LAUREANO RYAN Reason For Exam: AVN EXAMINATION: MRI right hip INDICATION: AVN TECHNIQUE: Multiplanar multi-sequence MRI images of the right hip were obtained. Coronal and axial imaging views the bilateral hips and pelvis. FINDINGS: Comparison: Radiographs from August 2023 Moderate degenerative changes of the right hip present with articular cartilage thinning and small osteophytes about the femoral head. Small joint effusion of the right hip noted. The anterior superior labrum of the right hip appears torn on the oblique axial images as well as sagittal image 16. Left hip hemiarthroplasty is present with associated susceptibility artifact. The SI joints are grossly unremarkable. The bony pelvis is otherwise unremarkable. There is at least moderate degenerative disc disease of the lower lumbar spine. The gluteal tendon insertions appear grossly intact on the greater trochanters. The hamstring origins appear grossly intact.The musculature about the pelvis is unremarkable. The pelvic contents are grossly unremarkable. IMPRESSION: Moderate right hip osteoarthritis. The anterior superior labrum of the right hip also appears torn. No avascular necrosis. Left hip hemiarthroplasty with associated susceptibility artifact. Report Dictated on Electronically Signed By: Olya Kang MD Electronically Signed Date/Time: 06/18/2024 3:25 PM EST [facility] [employer] Radiology Study observation (narrative) [facility] MR Chest WO contrastOrdered By: Olya Kang on 06-18-2024 [facility] Work Phone: Progress Noteon 06-18-2024 Progress Note Ok to have Andre come back to discuss next steps with right hip, will discuss MRI. [facility] Basophil percentageOrdered B y: Kianna Frankalexa on 10-24-2023 Bilirubin [Mass/Vol] 0.20 mg/dL 0.20-1.00 [facility] Comment on above: For patients on eltr ombopag therapy, use of [employer] [place] TBIL is not recommended. Chloride [Moles/Vol] 106 mmol/L 98-107 [facility] Cholesterol [Mass/Vol] 174 mg/dL <200 [facility] Comment on above: <200 mg/dL Desirable 200-240 mg/dL Borderline >240 mg/dL High Risk Glucose [Mass/Vol] 89 mg/dL 74-106 [facility] Hemoglobin (Bld) [Mass/Vol] 12.8 g/dL 12.0-15.0 [facility] Potassium [Moles/Vol] 4.5 mmol/L 3.5-5.1 [facility] Protein [Mass/Vol] 7.2 g/dL 6.4-8.2 [facility] Sodium [Moles/Vol] 140 mmol/L 136-145 [facility] Triglyceride [Mass/Vol] 348 mg/dL <199 [facility] Comment on above: The drugs N-Acetylcy steine and Metamizole may falsely depress this assay.Serum Triglycerides Reference Interval Normal <150 mg/dL Borderline high 150 - 199 mg/dL High 200 - 499 mg/dL Very High > or = 500 mg/dL WBC (Bld) [#/Vol] 8.2 10*3/uL 4.4-11.0 [facility] Determination of erythrocyte mean corpuscular volume (MCV)Ordered By: Kianna Izquierdo on 10-24-2023 MCV (RBC) [Entitic vol] 93.1 fL 81-99 [facility] Erythrocyte distribution wid th ratioOrdered By: Kianna Izquierdo on 10-24-2023 Erythrocyte distribution width (RBC) [Ratio] 12.9 % 11.6-14.6 [facility] Erythrocyte distribution wid th standard deviationOrdered By: Kianna Izquierdo on 10-24-2023 Erythrocyte distribution width (RBC) [Entitic vol] 44.2 fL 35.1-43.9 [facility] Hematocrit Auto (Bld) [Volum e fraction]Ordered By: Kianna Izquierdo on 10-24-2023 Hematocrit (Bld) [Volume fraction] 40.2 % 37-47 [facility] Laboratory - Chemistry and C hemistry - challengeOrdered By: Kianna Izquierdo on 10-24-2023 Albumin/Globulin [Mass ratio] 0.8 {ratio} 0.9-2.4 [facility] ALP [Catalytic activity/Vol] 142 U/L 45-117 [facility] ALT [Catalytic activity/Vol] 19 U/L 13-56 [facility] Cholesterol in HDL [Mass/Vol] 38 mg/dL >40 [facility] Comment on above: The drugs N-Acetylcy steine and Metamizole may falsely depress this assay. Reference Range HDL <40 mg/dL Low HDL Cholesterol HDL >or= 60 mg/dL High HDL Cholesterol Cholesterol in LDL [Mass/Vol] 66 mg/dL 0-130 [facility] CO2 [Moles/Vol] 33.0 mmol/L 21.0-32.0 [facility] Globulin (S) [Mass/Vol] 4.1 g/dL 2.2-4.2 [facility] Urea nitrogen/Creatinine [Mass ratio] 12.7 mg/mg 10-20 [facility] Laboratory - Hematology and Cell countsOrdered By: Kianna Izquierdo on 10-24-2023 MCH (RBC) [Entitic mass] 29.6 pg 27.0-32.0 [facility] MCHC (RBC) [Mass/Vol] 31.8 g/dL 32-36 [facility] Platelet mean volume (Bld) [Entitic vol] 10.2 fL 6.2-12.0 [facility] Platelets (Bld) [#/Vol] 269 10*3/uL 150-450 [facility] No Panel InformationOrdered By: Kianna Izquierdo on 10-24-2023 Estimated GFR (MDRD) Amer 92 mL/min >60 [facility] Comment on above: GFR Calc Estimated GFR (MDRD) Non-Af Amer 76 mL/min >60 [facility] Comment on above: Non- GFR Calc VLDL Cholesterol 70 mg/dL 5-40 [facility] RBC Auto (Bld) [#/Vol]Ordere d By: Kianna Izquierdo on 10-24-2023 RBC (Bld) [#/Vol] 4.32 10*6/uL 4.2-5.4 [facility] Serum or plasma calcium carlie urement (mass/volume)Ordered By: Kianna Izquierdo on 10-24-2023 Calcium [Mass/Vol] 9.1 mg/dL 8.5-10.1 [facility] Serum or plasma creatinine m easurement (mass/volume)Ordered By: Kianna Izquierdo on 10-24-2023 Creatinine [Mass/Vol] 0.79 mg/dL 0.55-1.02 [facility] Comment on above: The validity of the calculated GFR & GFRAA in patients over 70 years has not been determined. Clinical correlation is essential. Serum or plasma urea nitroge n measurement (mass/volume)Ordered By: Kianna Izquierdo on 10-24-2023 Urea nitrogen [Mass/Vol] 10 mg/dL 7-18 [facility] Thin prep Papanicolaou smear with manual screeningOrdered By: Kianna Izquierdo on 10-24-2023 Thin prep Papanicolaou smear with manual screening 3.1 g/dL 3.2-5.0 [facility] Thin prep Papanicolaou smear with manual screening 23 U/L 15-37 [facility] Thin prep Papanicolaou smear with manual screening 1 5-15 [facility] No Panel InformationOrdered By: Kianna Izquierdo on 08-10-2023 Carbamazepine (Tegretol) Level 11.1 ug/mL 4.0-12.0 [facility] No Panel InformationOrdered By: Kianna Izquierdo on 07-31-2023 Vitamin D 25-Hydroxy 52.8 ng/mL [facility] Comment on above: Vitamin D 25(OH) Sta tus Range Deficiency <20 ng/mL (50nmol/L) Insufficiency 20 - 30 ng/mL (50 - 75 nmol/L) Sufficiency 30 - 100 ng/mL (75 - 250 nmol/L) Toxicity >100 ng/mL (>250 nmol/L) Basophil percentageOrdered B y: Kianna Izquierdo on 06-26-2023 Basophil percentage 10-25 SEEN /hpf 0-5 [facility] Bilirubin Test strip Ql (U)O rdered By: Kianna Izquierdo on 06-26-2023 Bilirubin Ql (U) Negative Negative [facility] Culture, urineOrdered By: Doc Deras on 06-26-2023 Bacteria identified Cx Nom (U) Escherichia coli [facility] Ketones Test strip Ql (U)Ord ered By: Kianna Izquierdo on 06-26-2023 Ketones Ql (U) Negative Negative [facility] Mucus LM Ql (Urine sed)Order ed By: Kianna Izquierdo on 06-26-2023 Mucus Ql (Urine sed) 0 SEEN /hpf [facility] Nitrite Test strip Ql (U)Ord ered By: Kianna Izquierdo on 06-26-2023 Nitrite Ql (U) Negative Negative [facility] Protein Test strip Ql (U)Ord ered By: Kianna Izquierdo on 06-26-2023 Protein Ql (U) 15 mg/dl Negative [facility] Squamous epithelial cells de tection in urine sediment by light microscopyOrdered By: Kianna Izquierdo on 06-26-2023 Epithelial cells.squamous LM Ql (Urine sed) 0 SEEN /hpf 5-10 [facility] Urine blood detectionOrdered By: Kianna Izquierdo on 06-26-2023 RBC Ql (U) Negative Negative [facility] RBC Ql (U) 0 SEEN /hpf 0-5 [facility] Urine clarityOrdered By: Apple Izquierdo on 06-26-2023 Clarity (U) Sl. Cloudy Clear [facility] Urine color determinationOrd ered By: Kianna Izquierdo on 06-26-2023 Color (U) Yellow Yellow [facility] Urine glucose detectionOrder ed By: Kianna Izquierdo on 06-26-2023 Glucose Ql (U) Normal mg/dl Normal [facility] Urine leukocyte esterase det ection by dipstickOrdered By: Kianna Izquierdo on 06-26-2023 Leukocyte esterase Test strip Ql (U) 100 /ul Negative [facility] Urine pHOrdered By: Kianna reynolds on 06-26-2023 pH (U) 5.0 [pH] 5.0 - 8.0 [facility] Urine sediment bacteria coun t by microscopy (number/high power field)Ordered By: Kianna Izquierdo on 06-26-2023 Bacteria LM.HPF (Urine sed) [#/Area] 2 /[HPF] None Seen [facility] Urine specific gravity measu rementOrdered By: Kianna Izquierdo on 06-26-2023 Specific gravity (U) [Rel density] 1.015 1.002-1.030 [facility] Urobilinogen Auto test strip Ql (U)Ordered By: Kianna Izquierdo on 06-26-2023 Urobilinogen Ql (U) Normal mg/dl Normal [facility] Bilirubin Test strip Ql (U)O rdered By: Kianna Izquierdo on 06-20-2023 Bilirubin Ql (U) Negative Negative [facility] Culture, urineOrdered By: Doc Deras on 06-20-2023 Bacteria identified Cx Nom (U) Escherichia coli [facility] Ketones Test strip Ql (U)Ord ered By: Kianna Izquierdo on 06-20-2023 Ketones Ql (U) Negative Negative [facility] Nitrite Test strip Ql (U)Ord ered By: Kianna Izquierdo on 06-20-2023 Nitrite Ql (U) Negative Negative [facility] Protein Test strip Ql (U)Ord ered By: Kianna Izquierdo on 06-20-2023 Protein Ql (U) 15 mg/dl Negative [facility] Urine blood detectionOrdered By: Kianna Izquierdo on 06-20-2023 RBC Ql (U) Negative Negative [facility] Urine clarityOrdered By: Apple Izquierdo on 06-20-2023 Clarity (U) Clear Clear [facility] Urine color determinationOrd ered By: Kianna Izquierdo on 06-20-2023 Color (U) Yellow Yellow [facility] Urine glucose detectionOrder ed By: Kianna Izquierdo on 06-20-2023 Glucose Ql (U) Normal mg/dl Normal [facility] Urine leukocyte esterase det ection by dipstickOrdered By: Kianna Izquierdo on 06-20-2023 Leukocyte esterase Test strip Ql (U) 500 /ul Negative [facility] Urine pHOrdered By: Kianna reynolds on 06-20-2023 pH (U) 6.0 [pH] 5.0 - 8.0 [facility] Urine specific gravity measu rementOrdered By: Kianna Izquierdo on 06-20-2023 Specific gravity (U) [Rel density] 1.015 1.002-1.030 [facility] Urobilinogen Auto test strip Ql (U)Ordered By: Kianna Izquierdo on 06-20-2023 Urobilinogen Ql (U) Normal mg/dl Normal [facility] Erythrocyte sedimentation ra teOrdered By: Kianna Izquierdo on 06-01-2023 ESR (Bld) [Velocity] 8 mm/h 0-30 [facility] No Panel Informationon 06-01 Normal appearance of the patient's right total knee arthroplasty. Moderate osteoarthritis of the medial compartment of the left knee. Report Dictated on Electronically Signed By: Troy Rubin MD Electronically Signed Date/Time: 06/01/2023 8:30 AM [facility] RAD[facility] 1950 [id number] Exam Date/Time: 05/31/2023 15:15 Procedure: XR KNEES ANTEROPOSTERIOR STANDING BILATERAL Ordering Provider: CONNOLLY JACK Reason For Exam: s/p R TKA STANDING AP VIEW BILATERAL KNEES RIGHT KNEE SERIES CLINICAL INDICATION: Status post right knee arthroplasty. A single, standing AP view of the bilateral knees was performed. Lateral and sunrise plain film views of the right knee were also obtained. COMPARISON: 02/08/2023 FINDINGS: The standing AP view of the bilateral knees demonstrates a right total knee arthroplasty. Moderate joint space loss and degenerative spurring is noted within the medial compartment of the left knee. No fracture, dislocation, or loosening of the patient's right knee arthroplasty is identified. No joint effusion is seen on the lateral view of the right knee. Soft tissues are unremarkable. [facility] Troy Rubin MD - 06/01/2023 [facility] Name: [facility] 1950 [id number] Exam Date/Time: 05/31/2023 15:15 Procedure: XR KNEES ANTEROPOSTERIOR STANDING BILATERAL Ordering Provider: CONNOLLY JACK Reason For Exam: s/p R TKA STANDING AP VIEW BILATERAL KNEES RIGHT KNEE SERIES CLINICAL INDICATION: Status post right knee arthroplasty. A single, standing AP view of the bilateral knees was performed. Lateral and sunrise plain film views of the right knee were also obtained. COMPARISON: 02/08/2023 FINDINGS: The standing AP view of the bilateral knees demonstrates a right total knee arthroplasty. Moderate joint space loss and degenerative spurring is noted within the medial compartment of the left knee. No fracture, dislocation, or loosening of the patient's right knee arthroplasty is identified. No joint effusion is seen on the lateral view of the right knee. Soft tissues are unremarkable. IMPRESSION: Normal appearance of the patient's right total knee arthroplasty. Moderate osteoarthritis of the medial compartment of the left knee. Report Dictated on Electronically Signed By: Troy Rubin MD Electronically Signed Date/Time: 06/01/2023 8:30 AM EDT [facility] No Panel InformationOrdered By: Troy Rubin on 06-01-2023 [employer] Work Phone: Serum or plasma C reactive p rotein measurement (mass/volume)Ordered By: Kianna Izquierdo on 06-01-2023 CRP [Mass/Vol] 10.20 mg/L 0.0-3.0 [facility] Comment on above: C-Reactive Protein ( CRP) provides useful information for thediagnosis, therapy and monitoring of inflammatory processesand associated diseases. For the evaluation of Relative Riskfor Cardiovascular Disease, a High Sensitivity CRP (HSCRP)should be ordered. XR Knee - right 1 or 2 Views on 06-01-2023 Patient Name: ANDER BLANCA : 1950 Exam Date/Time: 05/31/2023 15:15 Procedure: XR KNEE 1-2 VIEWS RIGHT Ordering Provider: CONNOLLY JACK Reason For Exam: s/p R TKA STANDING AP VIEW BILATERAL KNEES RIGHT KNEE SERIES CLINICAL INDICATION: Status post right knee arthroplasty. A single, standing AP view of the bilateral knees was performed. Lateral and sunrise plain film views of the right knee were also obtained. COMPARISON: 02/08/2023 FINDINGS: The standing AP view of the bilateral knees demonstrates a right total knee arthroplasty. Moderate joint space loss and degenerative spurring is noted within the medial compartment of the left knee. No fracture, dislocation, or loosening of the patient's right knee arthroplasty is identified. No joint effusion is seen on the lateral view of the right knee. Soft tissues are unremarkable. [facility] Troy Rubin MD - 06/01/2023 Patient Name: ANDRE BLANCA : 1950 Exam Date/Time: 05/31/2023 15:15 Procedure: XR KNEE 1-2 VIEWS RIGHT Ordering Provider: CONNOLLY JACK Reason For Exam: s/p R TKA STANDING AP VIEW BILATERAL KNEES RIGHT KNEE SERIES CLINICAL INDICATION: Status post right knee arthroplasty. A single, standing AP view of the bilateral knees was performed. Lateral and sunrise plain film views of the right knee were also obtained. COMPARISON: 02/08/2023 FINDINGS: The standing AP view of the bilateral knees demonstrates a right total knee arthroplasty. Moderate joint space loss and degenerative spurring is noted within the medial compartment of the left knee. No fracture, dislocation, or loosening of the patient's right knee arthroplasty is identified. No joint effusion is seen on the lateral view of the right knee. Soft tissues are unremarkable. IMPRESSION: Normal appearance of the patient's right total knee arthroplasty. Moderate osteoarthritis of the medial compartment of the left knee. Report Dictated on Electronically Signed By: Troy Rubin MD Electronically Signed Date/Time: 06/01/2023 8:30 AM EDT [facility] No Panel Informationon 10-18 -2023 Radiology Study observation (narrative) [facility] Basophil percentageOrdered B y: Kianna Izquierdo on 04-25-2023 Cholesterol [Mass/Vol] 141 mg/dL <200 [facility] Comment on above: <200 mg/dL Desirable 200-240 mg/dL Borderline >240 mg/dL High Risk Triglyceride [Mass/Vol] 84 mg/dL <199 [facility] Comment on above: The drugs N-Acetylcy steine and Metamizole may falsely depress this assay.Serum Triglycerides Reference Interval Normal <150 mg/dL Borderline high 150 - 199 mg/dL High 200 - 499 mg/dL Very High > or = 500 mg/dL Serum or plasma cholesterol in HDL measurement (mass/volume)Ordered By: Kianna Izquierdo on 04-25-2023 Cholesterol in HDL [Mass/Vol] 44 mg/dL >40 [facility] Comment on above: The drugs N-Acetylcy steine and Metamizole may falsely depress this assay. Reference Range HDL <40 mg/dL Low HDL Cholesterol HDL >or= 60 mg/dL High HDL Cholesterol Serum or plasma cholesterol in VLDL measurement (mass/volume)Ordered By: Kianna Izquierdo on 04-25-2023 Cholesterol in VLDL [Mass/Vol] 17 mg/dL 5-40 [facility] Serum or plasma low density lipoprotein (LDL) cholesterol measurement (mass/volume)Ordered By: Kianna Izquierdo on 04-25-2023 Cholesterol in LDL [Mass/Vol] 80 mg/dL 0-130 [facility] No Panel Informationon 02-08 1. Right knee edema. 2. 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 3. Sizable right knee joint effusion. Report Dictated on Electronically Signed By: Ajay Oden Electronically Signed Date/Time: 02/08/2023 3:12 PM T [facility] Name: [facility]AN[facility] 1950 [id number] Exam Date/Time: 02/08/2023 13:06 Procedure: XR KNEES ANTEROPOSTERIOR STANDING BILATERAL Ordering Provider: CONNOLLY JACK Reason For Exam: s/p R TKA CLINICAL INFORMATION: Right knee pain and swelling. Arthroplasty. AP, tunnel, lateral, and sunrise views of the right knee are provided. The examination is compared to a previous study dated 12/14/2022. FINDINGS: The right knee is edematous. The patient is now status post total right knee arthroplasty. There is no evidence of kanwal-implant fracture, dislocation, or loosening. There is a large joint effusion. The bone mineralization is within normal limits. [facility] Ajay Oden MD - 02/08/2023 Patient Name: ANDRE BLANCA DOB: 1950 Exam Date/Time: 02/08/2023 13:06 Procedure: XR KNEES ANTEROPOSTERIOR STANDING BILATERAL Ordering Provider: CONNOLLY JACK Reason For Exam: s/p R TKA CLINICAL INFORMATION: Right knee pain and swelling. Arthroplasty. AP, tunnel, lateral, and sunrise views of the right knee are provided. The examination is compared to a previous study dated 12/14/2022. FINDINGS: The right knee is edematous. The patient is now status post total right knee arthroplasty. There is no evidence of kanwal-implant fracture, dislocation, or loosening. There is a large joint effusion. The bone mineralization is within normal limits. IMPRESSION: 1. Right knee edema. 2. 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 3. Sizable right knee joint effusion. Report Dictated on Electronically Signed By: Ajay Oden Electronically Signed Date/Time: 02/08/2023 3:12 PM EDT [facility] [employer] Radiology Study observation (narrative) [facility] Panel InformationOrdered By: Ajay Oden on 02-08-2023 [employer] Work Phone: XR Knee - right 1 or 2 Views on 02-08-2023 Patient Name: ANDRE BLANCA DOB: 1950 Exam Date/Time: 02/08/2023 13:06 Procedure: XR KNEE 1-2 VIEWS RIGHT Ordering Provider: CONNOLLY JACK Reason For Exam: s/p R TKA CLINICAL INFORMATION: Right knee pain and swelling. Arthroplasty. AP, tunnel, lateral, and sunrise views of the right knee are provided. The examination is compared to a previous study dated 12/14/2022. FINDINGS: The right knee is edematous. The patient is now status post total right knee arthroplasty. There is no evidence of kanwal-implant fracture, dislocation, or loosening. There is a large joint effusion. The bone mineralization is within normal limits. [facility] Ajay Oden MD - 02/08/2023 [facility] Name[facility] 1950 [id number] Exam Date/Time: 02/08/2023 13:06 Procedure: XR KNEE 1-2 VIEWS RIGHT Ordering Provider: CONNOLLY JACK Reason For Exam: s/p R TKA CLINICAL INFORMATION: Right knee pain and swelling. Arthroplasty. AP, tunnel, lateral, and sunrise views of the right knee are provided. The examination is compared to a previous study dated 12/14/2022. FINDINGS: The right knee is edematous. The patient is now status post total right knee arthroplasty. There is no evidence of kanwal-implant fracture, dislocation, or loosening. There is a large joint effusion. The bone mineralization is within normal limits. IMPRESSION: 1. Right knee edema. 2. 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 3. Sizable right knee joint effusion. Report Dictated on Electronically Signed By: Ajay Oden Electronically Signed Date/Time: 02/08/2023 3:12 PM EDT [employer] No Panel InformationOrdered By: Kianna Izquierdo on 02-06-2023 Miscellaneous Test See comment [facility] Comment on above: TEST RESULTS LIMITSC arbamazepine(Tegretol), S 7.9 ug/mL 4.0-12.0 In conjunction with other antiepileptic drugs Therapeutic 4.0 - 8.0 Toxicity 9.0 - 12.0 Carbamazepine alone Therapeutic 8.0 - 12.0 Detection Limit = 2.0 <2.0 indicates None Detected TESTING PERFORMED AT [facility]. ORIGINAL REPORT ON FILE IN LAB CONTAINS ADDITIONAL TEST SITE INFORMATION. No Panel InformationOrdered By: Kianna Izquierdo on 01-31-2023 Miscellaneous Test [facility] on above: TEST RESULT LIMITSCa rbamazepine(Tegretol), S 7.8 ug/mL 4.0-12.0 In conjunction with other antiepileptic drugs Therapeutic 4.0 - 8.0 Toxicity 9.0 - 12.0 Carbamazepine alone Therapeutic 8.0 - 12.0 Detection Limit = 2.0 <2.0 indicates None Detected ___ TESTING PERFORMED AT [facility]. ORIGINAL REPORT ON FILE IN LAB CONTAINS ADDITIONAL TEST SITE INFORMATION. Basic metabolic 1998 panelon 01-13-2023 Anion gap [Moles/Vol] 6 mmol/L 3 - 13 mmol/L [facility] Calcium [Mass/Vol] 8.5 mg/dL 8.4 - 10. 4 mg/dL [facility] Chloride [Moles/Vol] 101 mmol/L 98 - 10 7 mmol/L [facility] CO2 [Moles/Vol] 29 mmol/L 22 - 30 mmol/L [facility] Creatinine [Mass/Vol] 0.62 mg/dL 0.52 - 1.04 mg/dL [facility] GFR/1.73 sq M.predicted MDRD (S/P/Bld) [Vol rate/Area] - PINF [facility] Comment on above: Calculation based on the Chronic Kidney Disease Epidemiology Collaboration (CKD-EPI) equation refit without adjustment for race Glucose [Mass/Vol] 150 mg/dL High 70 - 100 mg/dL [facility] Interpretation and review of laboratory results Abnormal [facility] [employer] Potassium [Moles/Vol] 3.9 mmol/L 3.5 - 5.1 mmol/L [facility] Sodium [Moles/Vol] 136 mmol/L 135 - 145 mmol/L [facility] Urea nitrogen [Mass/Vol] 11 mg/dL 7 - 17 mg/dL [facility] Hemoglobin (Bld) [Mass/Vol]O rdered By: Mukund Buchanan on 01-13-2023 Hematocrit (Bld) [Volume fraction] 33.6 % Low 35.0 - 47.0 % [facility] Interpretation and review of laboratory results Abnormal [facility] Laboratory - Hematology and Cell countsOrdered By: Mukund Buchanna on 01-13-2023 Hemoglobin (Bld) [Mass/Vol] 10.9 g/dL Low 11.7 - 16.0 g/dL [facility] [employer] No Panel InformationOrdered By: Jose Reynoso on 01-13-2023 P [place] 64 degrees [employer] Work Phone: NC Interval 212 ms [employer] Work Phone: QRS [place] 78 degrees [employer] Phone: QRSD Interval 136 ms [employer] Phone: QT Interval 436 ms [employer] Work Phone: QTC Interval 471 ms [employer] Work Phone: T Wave [place] 14 degrees [employer] Work Phone: [employer] Work Phone: No Panel Informationon 01-13 SINUS RHYTHM RIGHT BUNDLE BRANCH BLOCK Electronically Signed On 01-13-2023 11:09:43 EDT by Jose Reynoso Jose Mcgowan MD - 01/13/2023 IMPRESSION: SINUS RHYTHM RIGHT BUNDLE BRANCH BLOCK Electronically Signed On 01-13-2023 11:09:43 EDT by Jose [employer] [facility] [employer] Vital signsOrdered By: Erica clarke [employer] on 01-13-2023 Heart rate 70 /min bpm [employer] Work Phone: Peripheral Blockon 3 FREDERICK Copeland CRNA 01/12/2023 1:26 PM Peripheral Block Time Out: 01/12/2023 1:09 PM Patient location during procedure: post-op Start time: 01/12/2023 1:09 PM End time: 01/12/2023 1:22 PM Reason for block: at surgeon's request and post-op pain management Staffing Performed: BREAKER MACHINE TENDER Resident/BREAKER MACHINE TENDER: FREDERICK Copeland CRNA Preanesthetic Checklist Completed: patient identified, IV checked, site marked, risks and benefits discussed, surgical consent, monitors and equipment checked, pre-op evaluation and timeout performed Region: Lower Extremities Primary: Adductor Canal Peripheral Block Patient position: supine Prep: ChloraPrep Patient monitoring: heart rate, satellite project site monitor, continuous pulse ox and continuous capnometry O2: Nasal cannula Laterality: right Injection technique: catheter Guidance: ultrasound guided -image retained in chart, tip of the needle identified by ultraound during injection. Needle Catheter: 4 in Catheter over Needle Additional Notes 01/12/2023 1:09 PM Assessment Injection assessment: negative aspiration for heme, no paresthesia on injection, incremental injection and local visualized surrounding nerve on ultrasound Paresthesia pain: none Heart rate change: no Slow fractionated injection: yes Required Documentation: Relevant anatomy identified (Nerves, Vessels, Muscles), Local anesthetic spread visualized around nerves or plane., Local anesthetic injected without difficulty, Negative for blood on aspiration, No EKG changes noted, No symptoms of toxicity, Local anesthetic injected incrementally with intermittent aspiration every 5 mL, No paresthesias reported by patient during injection and Normal resistance with injectionMedications dexAMETHasone-bupivaca ine-epinephrine (TAP) syringe - Injection 30 mL - 01/12/2023 1:09:00 PM [facility] [employer] [facility] Spinal Blockon 01-12-2023 FREDERICK Courtney CRNA 01/12/2023 11:02 AM Spinal Block Time Out: 01/12/2023 10:54 AM Patient location during procedure: OR Start time: 01/12/2023 10:55 AM End time: 01/12/2023 11:02 AM Reason for block: primary anesthetic Staffing Performed: BREAKER MACHINE TENDER Resident/BREAKER MACHINE TENDER: FREDERICK Courtney CRNA Preanesthetic Checklist Completed: patient identified, IV checked, site marked, risks and benefits discussed, surgical consent, monitors and equipment checked, pre-op evaluation and timeout performed Spinal Block Patient position: sitting Prep: ChloraPrep Sterility prep: gloves, hand hygiene and mask Sedation level: light sedation Patient monitoring: continuous pulse oximetry and heart rate Approach: midline Location: L3-4 Injection technique: single-shot Needle Needle type: pencil-tip Needle gauge: 24 G Needle length: 10 cm Medications Administered mepivacaine PF (Carbocaine) 2 % injection - Intrathecal 60 mg - 01/12/2023 11:01:00 AM Assessment Sensory level: T4 Block outcome: block to be assessed in the OR Number of attempts: 1 Procedure assessment: patient tolerated procedure well with no immediate complications Additional Notes Free flow CSF. No Heme. No Parathesia [facility] Basophil percentageOrdered B y: Kianna Izquierdo on 01-04-2023 Chloride [Moles/Vol] 105 mmol/L 98-107 [facility] Glucose [Mass/Vol] 93 mg/dL 74-106 [facility] Potassium [Moles/Vol] 3.6 mmol/L 3.5-5.1 [facility] Sodium [Moles/Vol] 143 mmol/L 136-145 [facility] - Chemistry and C hemistry - challengeOrdered By: Kianna Izquierdo on 01-04-2023 CO2 [Moles/Vol] 31.0 mmol/L 21.0-32.0 [facility] Urea nitrogen/Creatinine [Mass ratio] 15.7 mg/mg 10-20 [facility] No Panel InformationOrdered By: Kianna Izquierdo on 01-04-2023 Estimated GFR (MDRD) Amer 106 mL/min >60 [facility] Comment on above: GFR Calc Estimated GFR (MDRD) Non-Af Amer 87 mL/min >60 [facility] Comment on above: Non- GFR Calc Serum or plasma calcium carlie urement (mass/volume)Ordered By: Kianna Izquierdo on 01-04-2023 Calcium [Mass/Vol] 8.8 mg/dL 8.5-10.1 [facility] Serum or plasma creatinine m easurement (mass/volume)Ordered By: Kianna Izquierdo on 01-04-2023 Creatinine [Mass/Vol] 0.70 mg/dL 0.55-1.02 [facility] Comment on above: The validity of the calculated GFR & GFRAA in patients over 70 years has not been determined. Clinical correlation is essential. Serum or plasma urea nitroge n measurement (mass/volume)Ordered By: Kianna Izquierdo on 01-04-2023 Urea nitrogen [Mass/Vol] 11 mg/dL 7-18 [facility] Thin prep Papanicolaou smear with manual screeningOrdered By: Kianna Izquierdo on 01-04-2023 Thin prep Papanicolaou smear with manual screening 7 - [facility] Basophil percentageOrdered B y: Kianna Izquierdo on 12-26-2022 Bilirubin [Mass/Vol] 0.20 mg/dL 0.20-1.00 [facility] Comment on above: For patients on eltr ombopag therapy, use of [employer] [place] TBIL is not recommended. Chloride [Moles/Vol] 105 mmol/L 98-107 [facility] Glucose [Mass/Vol] 93 mg/dL 74-106 [facility] Potassium [Moles/Vol] 3.5 mmol/L 3.5-5.1 [facility] Protein [Mass/Vol] 6.5 g/dL 6.4-8.2 [facility] Sodium [Moles/Vol] 143 mmol/L 136-145 [facility] WBC (Bld) [#/Vol] 7.2 10*3/uL 4.4-11.0 [facility] Blood erythrocytes count (nu mber/volume)Ordered By: Kianna Izquierdo on 12-26-2022 RBC (Bld) [#/Vol] 3.96 10*6/uL 4.2-5.4 [facility] Blood hemoglobin measurement (mass/volume)Ordered By: Kianna Izquierdo on 12-26-2022 Hemoglobin (Bld) [Mass/Vol] 11.2 g/dL 12.0-15.0 [facility] Blood platelet mean volumeOr dered By: Kianna Izquierdo on 12-26-2022 Platelet mean volume (Bld) [Entitic vol] 10.2 fL 6.2-12.0 [facility] Determination of erythrocyte mean corpuscular volume (MCV)Ordered By: Kianna Izquierdo on 12-26-2022 MCV (RBC) [Entitic vol] 91.2 fL 81-99 [facility] Hematocrit Auto (Bld) [Volum e fraction]Ordered By: Kianna Izquierdo on 12-26-2022 Hematocrit (Bld) [Volume fraction] 36.1 % 37-47 [facility] Laboratory - Chemistry and C hemistry - challengeOrdered By: Kianna Izquierdo on 12-26-2022 ALP [Catalytic activity/Vol] 124 U/L 45-117 [facility] ALT [Catalytic activity/Vol] 18 U/L 13-56 [facility] CO2 [Moles/Vol] 32.0 mmol/L 21.0-32.0 [facility] Globulin (S) [Mass/Vol] 3.6 g/dL 2.2-4.2 [facility] Urea nitrogen/Creatinine [Mass ratio] 15.9 mg/mg 10-20 [facility] Laboratory - Hematology and Cell countsOrdered By: Kianna Izquierdo on 12-26-2022 Erythrocyte distribution width (RBC) [Entitic vol] 48.0 fL 35.1-43.9 [facility] Erythrocyte distribution width (RBC) [Ratio] 14.2 % 11.6-14.6 [facility] MCH (RBC) [Entitic mass] 28.3 pg 27.0-32.0 [facility] MCHC Auto (RBC) [Mass/Vol]Or dered By: Kianna Izquierdo on 12-26-2022 MCHC (RBC) [Mass/Vol] 31.0 g/dL 32-36 [facility] No Panel InformationOrdered By: Kianna Izquierdo on 12-26-2022 Estimated GFR (MDRD) Amer 106 mL/min >60 [facility] Comment on above: GFR Calc Estimated GFR (MDRD) Non-Af Amer 88 mL/min >60 [facility] Comment on above: Non- GFR Calc Platelets bldOrdered By: Apple Izquierdo on 12-26-2022 Platelets (Bld) [#/Vol] 241 10*3/uL 150-450 [facility] Serum or plasma albumin carlie urement (mass/volume)Ordered By: Kianna Izquierdo on 12-26-2022 Albumin [Mass/Vol] 2.9 g/dL 3.2-5.0 [facility] Serum or plasma albumin/glob ulin mass ratioOrdered By: Kianna Izquierdo on 12-26-2022 Albumin/Globulin [Mass ratio] 0.8 {ratio} 0.9-2.4 [facility] Serum or plasma calcium carlie urement (mass/volume)Ordered By: Kianna Izquierdo on 12-26-2022 Calcium [Mass/Vol] 8.3 mg/dL 8.5-10.1 [facility] Serum or plasma creatinine m easurement (mass/volume)Ordered By: Kianna Izquierdo on 12-26-2022 Creatinine [Mass/Vol] 0.69 mg/dL 0.55-1.02 [facility] Comment on above: The validity of the calculated GFR & GFRAA in patients over 70 years has not been determined. Clinical correlation is essential. Serum or plasma urea nitroge n measurement (mass/volume)Ordered By: Kianna Izquierdo on 12-26-2022 Urea nitrogen [Mass/Vol] 11 mg/dL 7-18 [facility] Thin prep Papanicolaou smear with manual screeningOrdered By: Kianna Izquierdo on 12-26-2022 Thin prep Papanicolaou smear with manual screening 17 U/L 15-37 [facility] Thin prep Papanicolaou smear with manual screening 6 5-15 [facility] Basophil percentageOrdered B y: Kianna Izquierdo on 12-19-2022 Chloride [Moles/Vol] 106 mmol/L 98-107 [facility] Glucose [Mass/Vol] 83 mg/dL 74-106 [facility] Potassium [Moles/Vol] 4.0 mmol/L 3.5-5.1 [facility] Sodium [Moles/Vol] 145 mmol/L 136-145 [facility] WBC (Bld) [#/Vol] 6.9 10*3/uL 4.4-11.0 [facility] Blood erythrocytes count (nu mber/volume)Ordered By: Kianna Izquierdo on 12-19-2022 RBC (Bld) [#/Vol] 3.81 10*6/uL 4.2-5.4 [facility] Blood hemoglobin measurement (mass/volume)Ordered By: Kianna Izquierdo on 12-19-2022 Hemoglobin (Bld) [Mass/Vol] 11.0 g/dL 12.0-15.0 [facility] Blood platelet mean volumeOr dered By: Kianna Izquierdo on 12-19-2022 Platelet mean volume (Bld) [Entitic vol] 10.8 fL 6.2-12.0 [facility] Determination of erythrocyte mean corpuscular volume (MCV)Ordered By: Kianna Izquierdo on 12-19-2022 MCV (RBC) [Entitic vol] 92.1 fL 81-99 [facility] Hematocrit Auto (Bld) [Volum e fraction]Ordered By: Kianna Izquierdo on 12-19-2022 Hematocrit (Bld) [Volume fraction] 35.1 % 37-47 [facility] Laboratory - Chemistry and C hemistry - challengeOrdered By: Kianna Izquierdo on 12-19-2022 CO2 [Moles/Vol] 33.0 mmol/L 21.0-32.0 [facility] Urea nitrogen/Creatinine [Mass ratio] 14.1 mg/mg 10-20 [facility] Laboratory - Hematology and Cell countsOrdered By: Kianna Izquierdo on 12-19-2022 Erythrocyte distribution width (RBC) [Entitic vol] 49.1 fL 35.1-43.9 [facility] Erythrocyte distribution width (RBC) [Ratio] 14.6 % 11.6-14.6 [facility] MCH (RBC) [Entitic mass] 28.9 pg 27.0-32.0 [facility] MCHC Auto (RBC) [Mass/Vol]Or dered By: Kianna Izquierdo on 12-19-2022 MCHC (RBC) [Mass/Vol] 31.3 g/dL 32-36 [facility] No Panel InformationOrdered By: Kianna Izquierdo on 12-19-2022 Estimated GFR (MDRD) Amer 93 mL/min >60 [facility] Comment on above: GFR Calc Estimated GFR (MDRD) Non-Af Amer 77 mL/min >60 [facility] Comment on above: Non- GFR Calc Platelets bldOrdered By: Apple Izqiuerdo on 12-19-2022 Platelets (Bld) [#/Vol] 261 10*3/uL 150-450 [facility] Serum or plasma calcium carlie urement (mass/volume)Ordered By: Kianna Izquierdo on 12-19-2022 Calcium [Mass/Vol] 8.8 mg/dL 8.5-10.1 [facility] Serum or plasma creatinine m easurement (mass/volume)Ordered By: Kianna Izquierdo on 12-19-2022 Creatinine [Mass/Vol] 0.78 mg/dL 0.55-1.02 [facility] Comment on above: The validity of the calculated GFR & GFRAA in patients over 70 years has not been determined. Clinical correlation is essential. Serum or plasma urea nitroge n measurement (mass/volume)Ordered By: Kianna Izquierdo on 12-19-2022 Urea nitrogen [Mass/Vol] 11 mg/dL 7-18 [facility] Thin prep Papanicolaou smear with manual screeningOrdered By: Kianna Izquierdo on 12-19-2022 Thin prep Papanicolaou smear with manual screening 6 5-15 [facility] Basophil percentageOrdered B y: Kianna Izquierdo on 12-01-2022 Chloride [Moles/Vol] 105 mmol/L 98-107 [facility] Glucose [Mass/Vol] 89 mg/dL 74-106 [facility] Potassium [Moles/Vol] 3.8 mmol/L 3.5-5.1 [facility] Sodium [Moles/Vol] 140 mmol/L 136-145 [facility] - Chemistry and C hemistry - challengeOrdered By: Kianna Izquierdo on 12-01-2022 CO2 [Moles/Vol] 34.0 mmol/L 21.0-32.0 [facility] Urea nitrogen/Creatinine [Mass ratio] 16.0 mg/mg 10- [facility] No Panel InformationOrdered By: Kianna Izquierdo on 12-01-2022 Estimated GFR (MDRD) Amer 88 mL/min >60 [facility] Comment on above: GFR Calc Estimated GFR (MDRD) Non-Af Amer 73 mL/min >60 [facility] Comment on above: Non- GFR Calc Serum or plasma calcium carlie urement (mass/volume)Ordered By: Kianna Izquierdo on 12-01-2022 Calcium [Mass/Vol] 8.8 mg/dL 8.5-10.1 [facility] Serum or plasma creatinine m easurement (mass/volume)Ordered By: Kianna Izquierdo on 12-01-2022 Creatinine [Mass/Vol] 0.82 mg/dL 0.55-1.02 [facility] Comment on above: The validity of the calculated GFR & GFRAA in patients over 70 years has not been determined. Clinical correlation is essential. Serum or plasma urea nitroge n measurement (mass/volume)Ordered By: Kianna Izquierdo on 12-01-2022 Urea nitrogen [Mass/Vol] 13 mg/dL 7-18 [facility] Thin prep Papanicolaou smear with manual screeningOrdered By: Kianna Izquierdo on 12-01-2022 Thin prep Papanicolaou smear with manual screening 1 5-15 [facility] Basophil percentageOrdered B y: Kianna Izquierdo on 11-24-2022 Chloride [Moles/Vol] 105 mmol/L 98-107 [facility] Glucose [Mass/Vol] 82 mg/dL 74-106 [facility] Potassium [Moles/Vol] 3.3 mmol/L 3.5-5.1 [facility] Sodium [Moles/Vol] 143 mmol/L 136-145 [facility] WBC (Bld) [#/Vol] 7.0 10*3/uL 4.4-11.0 [facility] Blood erythrocytes count (nu mber/volume)Ordered By: Kianna Izquierdo on 11-24-2022 RBC (Bld) [#/Vol] 3.73 10*6/uL 4.2-5.4 [facility] Blood hemoglobin measurement (mass/volume)Ordered By: Kianna Izquierdo on 11-24-2022 Hemoglobin (Bld) [Mass/Vol] 10.5 g/dL 12.0-15.0 [facility] Blood platelet mean volumeOr dered By: Kianna Izquierdo on 11-24-2022 Platelet mean volume (Bld) [Entitic vol] 10.1 fL 6.2-12.0 [facility] Determination of erythrocyte mean corpuscular volume (MCV)Ordered By: Kianna Izquierdo on 11-24-2022 MCV (RBC) [Entitic vol] 89.0 fL 81-99 [facility] Hematocrit Auto (Bld) [Volum e fraction]Ordered By: Kianna Izqiuerdo on 11-24-2022 Hematocrit (Bld) [Volume fraction] 33.2 % 37-47 [facility] Laboratory - Chemistry and C hemistry - challengeOrdered By: Kianna Izquierdo on 11-24-2022 CO2 [Moles/Vol] 33.0 mmol/L 21.0-32.0 [facility] Urea nitrogen/Creatinine [Mass ratio] 12.9 mg/mg 10-20 [facility] Laboratory - Hematology and Cell countsOrdered By: Kianna Izquierdo on 11-24-2022 Erythrocyte distribution width (RBC) [Entitic vol] 50.9 fL 35.1-43.9 [facility] Erythrocyte distribution width (RBC) [Ratio] 15.5 % 11.6-14.6 [facility] MCH (RBC) [Entitic mass] 28.2 pg 27.0-32.0 [facility] MCHC Auto (RBC) [Mass/Vol]Or dered By: Kianna Izquierdo on 11-24-2022 MCHC (RBC) [Mass/Vol] 31.6 g/dL 32-36 [facility] No Panel InformationOrdered By: Kianna Izquierdo on 11-24-2022 Estimated GFR (MDRD) Amer 121 mL/min >60 [facility] Comment on above: GFR Calc Estimated GFR (MDRD) Non-Af Amer 100 mL/min >60 [facility] Comment on above: Non- GFR Calc Platelets bldOrdered By: Apple Izquierdo on 11-24-2022 Platelets (Bld) [#/Vol] 259 10*3/uL 150-450 [facility] Serum or plasma calcium carlie urement (mass/volume)Ordered By: Kianna Izquierdo on 11-24-2022 Calcium [Mass/Vol] 8.8 mg/dL 8.5-10.1 [facility] Serum or plasma creatinine m easurement (mass/volume)Ordered By: Kianna Izquierdo on 11-24-2022 Creatinine [Mass/Vol] 0.62 mg/dL 0.55-1.02 [facility] Comment on above: The validity of the calculated GFR & GFRAA in patients over 70 years has not been determined. Clinical correlation is essential. Serum or plasma urea nitroge n measurement (mass/volume)Ordered By: Kianna Izquierdo on 11-24-2022 Urea nitrogen [Mass/Vol] 8 mg/dL 7-18 [facility] Thin prep Papanicolaou smear with manual screeningOrdered By: Kianna Izquierdo on 11-24-2022 Thin prep Papanicolaou smear with manual screening 5 5-15 [facility] Basophil percentageOrdered B y: Kianna Izquierdo on 11-17-2022 Chloride [Moles/Vol] 103 mmol/L 98-107 [facility] Glucose [Mass/Vol] 127 mg/dL 74-106 [facility] Comment on above: Fasting Glucose resu lt greater than or equal to 126 mg/dL suggests DIABETES MELLITUS per A.D.A. criteria. Potassium [Moles/Vol] 3.4 mmol/L 3.5-5.1 [facility] Sodium [Moles/Vol] 141 mmol/L 136-145 [facility] WBC (Bld) [#/Vol] 6.0 10*3/uL 4.4-11.0 [facility] Blood erythrocytes count (nu mber/volume)Ordered By: Kianna Izquierdo on 11-17-2022 RBC (Bld) [#/Vol] 3.76 10*6/uL 4.2-5.4 [facility] Blood hemoglobin measurement (mass/volume)Ordered By: Kianna Izquierdo on 11-17-2022 Hemoglobin (Bld) [Mass/Vol] 10.5 g/dL 12.0-15.0 [facility] Blood platelet mean volumeOr dered By: Kianna Izquierdo on 11-17-2022 Platelet mean volume (Bld) [Entitic vol] 10.2 fL 6.2-12.0 [facility] Determination of erythrocyte mean corpuscular volume (MCV)Ordered By: Kianna Izquierdo on 11-17-2022 MCV (RBC) [Entitic vol] 90.2 fL 81-99 [facility] Hematocrit Auto (Bld) [Volum e fraction]Ordered By: Kianna Izquierdo on 11-17-2022 Hematocrit (Bld) [Volume fraction] 33.9 % 37-47 [facility] Laboratory - Chemistry and C hemistry - challengeOrdered By: Kianna Izquierdo on 11-17-2022 CO2 [Moles/Vol] 35.0 mmol/L 21.0-32.0 [facility] Urea nitrogen/Creatinine [Mass ratio] 12.2 mg/mg 10-20 [facility] Laboratory - Hematology and Cell countsOrdered By: Kianna Izquierdo on 11-17-2022 Erythrocyte distribution width (RBC) [Entitic vol] 51.2 fL 35.1-43.9 [facility] Erythrocyte distribution width (RBC) [Ratio] 15.5 % 11.6-14.6 [facility] MCH (RBC) [Entitic mass] 27.9 pg 27.0-32.0 [facility] MCHC Auto (RBC) [Mass/Vol]Or dered By: Kianna Izquierdo on 11-17-2022 MCHC (RBC) [Mass/Vol] 31.0 g/dL 32-36 [facility] No Panel InformationOrdered By: Kianna Izquierdo on 11-17-2022 Estimated GFR (MDRD) Amer 113 mL/min >60 [facility] Comment on above: GFR Calc Estimated GFR (MDRD) Non-Af Amer 94 mL/min >60 [facility] Comment on above: Non- GFR Calc Platelets bldOrdered By: Pet viviana Izquierdo on 11-17-2022 Platelets (Bld) [#/Vol] 249 10*3/uL 150-450 [facility] Serum or plasma calcium carlie urement (mass/volume)Ordered By: Kianna Izquierdo on 11-17-2022 Calcium [Mass/Vol] 8.6 mg/dL 8.5-10.1 [facility] Serum or plasma creatinine m easurement (mass/volume)Ordered By: Kianna Izquierdo on 11-17-2022 Creatinine [Mass/Vol] 0.66 mg/dL 0.55-1.02 [facility] Comment on above: The validity of the calculated GFR & GFRAA in patients over 70 years has not been determined. Clinical correlation is essential. Serum or plasma urea nitroge n measurement (mass/volume)Ordered By: Kianna Izquierdo on 11-17-2022 Urea nitrogen [Mass/Vol] 8 mg/dL 7-18 [facility] Thin prep Papanicolaou smear with manual screeningOrdered By: Kianna Izquierdo on 11-17-2022 Thin prep Papanicolaou smear with manual screening 3 5-15 [facility] Basophil percentageOrdered B y: Kianna Izquierdo on 10-19-2022 Chloride [Moles/Vol] 108 mmol/L 98-107 [facility] Glucose [Mass/Vol] 116 mg/dL 74-106 [facility] Comment on above: Fasting Glucose resu lt from 100 to 125 mg/dL suggests IMPAIRED HOMEOSTASIS per A.D.A. criteria. Potassium [Moles/Vol] 3.9 mmol/L 3.5-5.1 [facility] Sodium [Moles/Vol] 144 mmol/L 136-145 [facility] Laboratory - Chemistry and C hemistry - challengeOrdered By: Kianna Izquierdo on 10-19-2022 CO2 [Moles/Vol] 29.0 mmol/L 21.0-32.0 [facility] Urea nitrogen/Creatinine [Mass ratio] 17.0 mg/mg 10-20 [facility] No Panel InformationOrdered By: Kianna Izquierdo on 10-19-2022 Estimated GFR (MDRD) Amer 95 mL/min >60 [facility] Comment on above: GFR Calc Estimated GFR (MDRD) Non-Af Amer 79 mL/min >60 [facility] Comment on above: Non- GFR Calc Thyroid Stimulating Hormone (TSH) < 0.01 uIU/mL 0.358-3.74 [facility] Serum or plasma calcium carlie urement (mass/volume)Ordered By: Kianna Izquierdo on 10-19-2022 Calcium [Mass/Vol] 8.4 mg/dL 8.5-10.1 [facility] Serum or plasma creatinine m easurement (mass/volume)Ordered By: Kianna Izquierdo on 10-19-2022 Creatinine [Mass/Vol] 0.77 mg/dL 0.55-1.02 [facility] Comment on above: The validity of the calculated GFR & GFRAA in patients over 70 years has not been determined. Clinical correlation is essential. Serum or plasma urea nitroge n measurement (mass/volume)Ordered By: Kianna Izquierdo on 10-19-2022 Urea nitrogen [Mass/Vol] 13 mg/dL 7-18 [facility] Thin prep Papanicolaou smear with manual screeningOrdered By: Kianna Izquierdo on 10-19-2022 Thin prep Papanicolaou smear with manual screening 7 5-15 [facility] Basophil percentageOrdered B y: Kianna Izquierdo on 10-17-2022 Chloride [Moles/Vol] 105 mmol/L 98-107 [facility] Glucose [Mass/Vol] 121 mg/dL 74-106 [facility] Comment on above: Fasting Glucose resu lt from 100 to 125 mg/dL suggests IMPAIRED HOMEOSTASIS per A.D.A. criteria. Potassium [Moles/Vol] 3.0 mmol/L 3.5-5.1 [facility] Sodium [Moles/Vol] 143 mmol/L 136-145 [facility] WBC (Bld) [#/Vol] 6.5 10*3/uL 4.4-11.0 [facility] Blood erythrocytes count (nu mber/volume)Ordered By: Kianna Izquierdo on 10-17-2022 RBC (Bld) [#/Vol] 3.90 10*6/uL 4.2-5.4 [facility] Blood hemoglobin measurement (mass/volume)Ordered By: Kianna Izquierdo on 10-17-2022 Hemoglobin (Bld) [Mass/Vol] 10.4 g/dL 12.0-15.0 [facility] Blood platelet mean volumeOr dered By: Kianna Izquierdo on 10-17-2022 Platelet mean volume (Bld) [Entitic vol] 10.4 fL 6.2-12.0 [facility] Determination of erythrocyte mean corpuscular volume (MCV)Ordered By: Kianna Izquierdo on 10-17-2022 MCV (RBC) [Entitic vol] 88.7 fL 81-99 [facility] Hematocrit Auto (Bld) [Volum e fraction]Ordered By: Kianna Izquierdo on 10-17-2022 Hematocrit (Bld) [Volume fraction] 34.6 % 37-47 [facility] Laboratory - Chemistry and C hemistry - challengeOrdered By: Kianna Izquierdo on 10-17-2022 CO2 [Moles/Vol] 31.0 mmol/L 21.0-32.0 [facility] Urea nitrogen/Creatinine [Mass ratio] 10.0 mg/mg 10-20 [facility] Laboratory - Hematology and Cell countsOrdered By: Kianna Izquierdo on 10-17-2022 Erythrocyte distribution width (RBC) [Entitic vol] 52.4 fL 35.1-43.9 [facility] Erythrocyte distribution width (RBC) [Ratio] 16.2 % 11.6-14.6 [facility] MCH (RBC) [Entitic mass] 26.7 pg 27.0-32.0 [facility] MCHC Auto (RBC) [Mass/Vol]Or dered By: Kianna Izquierdo on 10-17-2022 MCHC (RBC) [Mass/Vol] 30.1 g/dL 32-36 [facility] No Panel InformationOrdered By: Kianna Izquierdo on 10-17-2022 Estimated GFR (MDRD) Amer 126 mL/min >60 [facility] Comment on above: GFR Calc Estimated GFR (MDRD) Non-Af Amer 105 mL/min >60 [facility] Comment on above: Non- GFR Calc Platelets bldOrdered By: Apple Izquierdo on 10-17-2022 Platelets (Bld) [#/Vol] 251 10*3/uL 150-450 [facility] Serum or plasma calcium carlie urement (mass/volume)Ordered By: Kianna Izquierdo on 10-17-2022 Calcium [Mass/Vol] 8.5 mg/dL 8.5-10.1 [facility] Serum or plasma creatinine m easurement (mass/volume)Ordered By: Kianna Izquierdo on 10-17-2022 Creatinine [Mass/Vol] 0.60 mg/dL 0.55-1.02 [facility] Comment on above: The validity of the calculated GFR & GFRAA in patients over 70 years has not been determined. Clinical correlation is essential. Serum or plasma urea nitroge n measurement (mass/volume)Ordered By: Kianna Izquierdo on 10-17-2022 Urea nitrogen [Mass/Vol] 6 mg/dL 7-18 [facility] Thin prep Papanicolaou smear with manual screeningOrdered By: Kianna Izquierdo on 10-17-2022 Thin prep Papanicolaou smear with manual screening 7 5-15 [facility] Basophil percentageOrdered B y: Kianna Izquierdo on 09-26-2022 Chloride [Moles/Vol] 106 mmol/L 98-107 [facility] Glucose [Mass/Vol] 92 mg/dL 74-106 [facility] Potassium [Moles/Vol] 3.7 mmol/L 3.5-5.1 [facility] Sodium [Moles/Vol] 141 mmol/L 136-145 [facility] Laboratory - Chemistry and C hemistry - challengeOrdered By: Kianna Izquierdo on 09-26-2022 CO2 [Moles/Vol] 29.0 mmol/L 21.0-32.0 [facility] Urea nitrogen/Creatinine [Mass ratio] 12.5 mg/mg 10-20 [facility] No Panel InformationOrdered By: Kianna Izquierdo on 09-26-2022 Estimated GFR (MDRD) Amer 102 mL/min >60 [facility] Comment on above: GFR Calc Estimated GFR (MDRD) Non-Af Amer 85 mL/min >60 [facility] Comment on above: Non- GFR Calc Serum or plasma calcium carlie urement (mass/volume)Ordered By: Kianna Izquierdo on 09-26-2022 Calcium [Mass/Vol] 8.5 mg/dL 8.5-10.1 [facility] Serum or plasma creatinine m easurement (mass/volume)Ordered By: Kianna Izquierdo on 09-26-2022 Creatinine [Mass/Vol] 0.72 mg/dL 0.55-1.02 [facility] Comment on above: The validity of the calculated GFR & GFRAA in patients over 70 years has not been determined. Clinical correlation is essential. Serum or plasma urea nitroge n measurement (mass/volume)Ordered By: Kianna Izquierdo on 09-26-2022 Urea nitrogen [Mass/Vol] 9 mg/dL 7-18 [facility] Thin prep Papanicolaou smear with manual screeningOrdered By: Kianna Izquierdo on 09-26-2022 Thin prep Papanicolaou smear with manual screening 6 5-15 [facility] Clostridium difficile detect ion by polymerase chain reactionOrdered By: Kianna Izquierdo on 09-20-2022 C. difficile DNA KAMLA+probe Ql (Unsp spec) [facility] Basophil percentageOrdered B y: Kianna Izquierdo on 09-19-2022 Chloride [Moles/Vol] 107 mmol/L 98-107 [facility] Glucose [Mass/Vol] 100 mg/dL 74-106 [facility] Comment on above: Fasting Glucose resu lt from 100 to 125 mg/dL suggests IMPAIRED HOMEOSTASIS per A.D.A. criteria. Potassium [Moles/Vol] 3.4 mmol/L 3.5-5.1 [facility] Sodium [Moles/Vol] 145 mmol/L 136-145 [facility] WBC (Bld) [#/Vol] 7.5 10*3/uL 4.4-11.0 [facility] Blood erythrocytes count (nu mber/volume)Ordered By: Kianna Izquierdo on 09-19-2022 RBC (Bld) [#/Vol] 4.01 10*6/uL 4.2-5.4 [facility] Blood hemoglobin measurement (mass/volume)Ordered By: Kianna Izquierdo on 09-19-2022 Hemoglobin (Bld) [Mass/Vol] 10.6 g/dL 12.0-15.0 [facility] Blood platelet mean volumeOr dered By: Kianna Izquierdo on 09-19-2022 Platelet mean volume (Bld) [Entitic vol] 10.3 fL 6.2-12.0 [facility] Determination of erythrocyte mean corpuscular volume (MCV)Ordered By: Kianna Izquierdo on 09-19-2022 MCV (RBC) [Entitic vol] 83.8 fL 81-99 [facility] Hematocrit Auto (Bld) [Volum e fraction]Ordered By: Kianna Izquierdo on 09-19-2022 Hematocrit (Bld) [Volume fraction] 33.6 % 37-47 [facility] Laboratory - Chemistry and C hemistry - challengeOrdered By: Kianna Izquierdo on 09-19-2022 CO2 [Moles/Vol] 31.0 mmol/L 21.0-32.0 [facility] Urea nitrogen/Creatinine [Mass ratio] 12.5 mg/mg 10-20 [facility] Laboratory - Hematology and Cell countsOrdered By: Kianna Izquierdo on 09-19-2022 Erythrocyte distribution width (RBC) [Entitic vol] 51.5 fL 35.1-43.9 [facility] Erythrocyte distribution width (RBC) [Ratio] 16.9 % 11.6-14.6 [facility] MCH (RBC) [Entitic mass] 26.4 pg 27.0-32.0 [facility] MCHC Auto (RBC) [Mass/Vol]Or dered By: Kianna Izquierdo on 09-19-2022 MCHC (RBC) [Mass/Vol] 31.5 g/dL 32-36 [facility] No Panel InformationOrdered By: Kianna Izquierdo on 09-19-2022 Estimated GFR (MDRD) Amer 117 mL/min >60 [facility] Comment on above: GFR Calc Estimated GFR (MDRD) Non-Af Amer 97 mL/min >60 [facility] Comment on above: Non- GFR Calc Platelets bldOrdered By: Apple Izquierdo on 09-19-2022 Platelets (Bld) [#/Vol] 261 10*3/uL 150-450 [facility] Serum or plasma calcium carlie urement (mass/volume)Ordered By: Kianna Izquierdo on 09-19-2022 Calcium [Mass/Vol] 8.9 mg/dL 8.5-10.1 [facility] Serum or plasma creatinine m easurement (mass/volume)Ordered By: Kianna Izquierdo on 09-19-2022 Creatinine [Mass/Vol] 0.64 mg/dL 0.55-1.02 [facility] Comment on above: The validity of the calculated GFR & GFRAA in patients over 70 years has not been determined. Clinical correlation is essential. Serum or plasma urea nitroge n measurement (mass/volume)Ordered By: Kianna Izquierdo on 09-19-2022 Urea nitrogen [Mass/Vol] 8 mg/dL 7-18 [facility] Thin prep Papanicolaou smear with manual screeningOrdered By: Kianna Izquierdo on 09-19-2022 Thin prep Papanicolaou smear with manual screening 7 5-15 [facility] Basophil percentageOrdered B y: Kianna Izquierdo on 08-18-2022 Chloride [Moles/Vol] 108 mmol/L 98-107 [facility] Glucose [Mass/Vol] 88 mg/dL 74-106 [facility] Potassium [Moles/Vol] 3.8 mmol/L 3.5-5.1 [facility] Sodium [Moles/Vol] 143 mmol/L 136-145 [facility] WBC (Bld) [#/Vol] 6.8 10*3/uL 4.4-11.0 [facility] Blood erythrocytes count (nu mber/volume)Ordered By: Kianna Izquierdo on 08-18-2022 RBC (Bld) [#/Vol] 3.98 10*6/uL 4.2-5.4 [facility] Blood hemoglobin measurement (mass/volume)Ordered By: Kianna Izquierdo on 08-18-2022 Hemoglobin (Bld) [Mass/Vol] 10.1 g/dL 12.0-15.0 [facility] Blood platelet mean volumeOr dered By: Kianna Izquierdo on 08-18-2022 Platelet mean volume (Bld) [Entitic vol] 10.1 fL 6.2-12.0 [facility] Determination of erythrocyte mean corpuscular volume (MCV)Ordered By: Kianna Izquierdo on 08-18-2022 MCV (RBC) [Entitic vol] 87.4 fL 81-99 [facility] Hematocrit Auto (Bld) [Volum e fraction]Ordered By: Kianna Izquierdo on 08-18-2022 Hematocrit (Bld) [Volume fraction] 34.8 % 37-47 [facility] Laboratory - Chemistry and C hemistry - challengeOrdered By: Kianna Izquierdo on 08-18-2022 CO2 [Moles/Vol] 31.0 mmol/L 21.0-32.0 [facility] Urea nitrogen/Creatinine [Mass ratio] 12.0 mg/mg 10-20 [facility] Laboratory - Hematology and Cell countsOrdered By: Kianna Izquierdo on 08-18-2022 Erythrocyte distribution width (RBC) [Entitic vol] 50.2 fL 35.1-43.9 [facility] Erythrocyte distribution width (RBC) [Ratio] 15.9 % 11.6-14.6 [facility] MCH (RBC) [Entitic mass] 25.4 pg 27.0-32.0 [facility] MCHC Auto (RBC) [Mass/Vol]Or dered By: Kianna Izquierdo on 08-18-2022 MCHC (RBC) [Mass/Vol] 29.0 g/dL 32-36 [facility] No Panel InformationOrdered By: Kianna Izquierdo on 08-18-2022 Estimated GFR (MDRD) Amer 131 mL/min >60 [facility] Comment on above: GFR Calc Estimated GFR (MDRD) Non-Af Amer 108 mL/min >60 [facility] Comment on above: Non- GFR Calc Platelets bldOrdered By: Apple Izquierdo on 08-18-2022 Platelets (Bld) [#/Vol] 317 10*3/uL 150-450 [facility] Serum or plasma calcium carlie urement (mass/volume)Ordered By: Kianna Izquierdo on 08-18-2022 Calcium [Mass/Vol] 8.7 mg/dL 8.5-10.1 [facility] Serum or plasma creatinine m easurement (mass/volume)Ordered By: Kianna Izquierdo on 08-18-2022 Creatinine [Mass/Vol] 0.58 mg/dL 0.55-1.02 [facility] Comment on above: The validity of the calculated GFR & GFRAA in patients over 70 years has not been determined. Clinical correlation is essential. Serum or plasma urea nitroge n measurement (mass/volume)Ordered By: Kianna Izquierdo on 08-18-2022 Urea nitrogen [Mass/Vol] 7 mg/dL 7-18 [facility] Thin prep Papanicolaou smear with manual screeningOrdered By: Kianna Izquierdo on 08-18-2022 Thin prep Papanicolaou smear with manual screening 4 5-15 [facility] Basophil percentageOrdered B y: Kianna Izquierdo on 08-16-2022 Chloride [Moles/Vol] 105 mmol/L 98-107 [facility] Glucose [Mass/Vol] 99 mg/dL 74-106 [facility] Potassium [Moles/Vol] 3.1 mmol/L 3.5-5.1 [facility] Sodium [Moles/Vol] 143 mmol/L 136-145 [facility] WBC (Bld) [#/Vol] 6.7 10*3/uL 4.4-11.0 [facility] Blood erythrocytes count (nu mber/volume)Ordered By: Kianna Izquierdo on 08-16-2022 RBC (Bld) [#/Vol] 3.94 10*6/uL 4.2-5.4 [facility] Blood hemoglobin measurement (mass/volume)Ordered By: Kianna Izquierdo on 08-16-2022 Hemoglobin (Bld) [Mass/Vol] 10.1 g/dL 12.0-15.0 [facility] Blood platelet mean volumeOr dered By: Kianna Izquierdo on 08-16-2022 Platelet mean volume (Bld) [Entitic vol] 10.0 fL 6.2-12.0 [facility] Determination of erythrocyte mean corpuscular volume (MCV)Ordered By: Kianna Izuqierdo on 08-16-2022 MCV (RBC) [Entitic vol] 84.5 fL 81-99 [facility] Hematocrit Auto (Bld) [Volum e fraction]Ordered By: Kianna Izquierdo on 08-16-2022 Hematocrit (Bld) [Volume fraction] 33.3 % 37-47 [facility] Laboratory - Chemistry and C hemistry - challengeOrdered By: Kianna Izquierdo on 08-16-2022 CO2 [Moles/Vol] 30.0 mmol/L 21.0-32.0 [facility] Urea nitrogen/Creatinine [Mass ratio] 13.5 mg/mg 10-20 [facility] Laboratory - Hematology and Cell countsOrdered By: Kianna Izquierdo on 08-16-2022 Erythrocyte distribution width (RBC) [Entitic vol] 47.9 fL 35.1-43.9 [facility] Erythrocyte distribution width (RBC) [Ratio] 15.6 % 11.6-14.6 [facility] MCH (RBC) [Entitic mass] 25.6 pg 27.0-32.0 [facility] MCHC Auto (RBC) [Mass/Vol]Or dered By: Kianna Izquierdo on 08-16-2022 MCHC (RBC) [Mass/Vol] 30.3 g/dL 32-36 [facility] No Panel InformationOrdered By: Kianna Izquierdo on 08-16-2022 Estimated GFR (MDRD) Amer 127 mL/min >60 [facility] Comment on above: GFR Calc Estimated GFR (MDRD) Non-Af Amer 105 mL/min >60 [facility] Comment on above: Non- GFR Calc Platelets bldOrdered By: Apple Izquierdo on 08-16-2022 Platelets (Bld) [#/Vol] 303 10*3/uL 150-450 [facility] Serum or plasma calcium carlie urement (mass/volume)Ordered By: Kianna Izquierdo on 08-16-2022 Calcium [Mass/Vol] 8.5 mg/dL 8.5-10.1 [facility] Serum or plasma creatinine m easurement (mass/volume)Ordered By: Kianna Izquierdo on 08-16-2022 Creatinine [Mass/Vol] 0.59 mg/dL 0.55-1.02 [facility] Comment on above: The validity of the calculated GFR & GFRAA in patients over 70 years has not been determined. Clinical correlation is essential. Serum or plasma urea nitroge n measurement (mass/volume)Ordered By: Kianna Izquierdo on 08-16-2022 Urea nitrogen [Mass/Vol] 8 mg/dL 7-18 [facility] Thin prep Papanicolaou smear with manual screeningOrdered By: Kianna Izquierdo on 08-16-2022 Thin prep Papanicolaou smear with manual screening 8 5-15 [facility] No Panel InformationOrdered By: Kianna Izquierdo on 08-03-2022 Vitamin D 25-Hydroxy 41.8 ng/mL [facility] Comment on above: Vitamin D 25(OH) Sta tus Range Deficiency <20 ng/mL (50nmol/L) Insufficiency 20 - 30 ng/mL (50 - 75 nmol/L) Sufficiency 30 - 100 ng/mL (75 - 250 nmol/L) Toxicity >100 ng/mL (>250 nmol/L) Basophil percentageOrdered B y: Kianna Izquierdo on 07-04-2022 Chloride [Moles/Vol] 104 mmol/L 98-107 [facility] Glucose [Mass/Vol] 98 mg/dL 74-106 [facility] Potassium [Moles/Vol] 4.0 mmol/L 3.5-5.1 [facility] Sodium [Moles/Vol] 140 mmol/L 136-145 [facility] WBC (Bld) [#/Vol] 6.5 10*3/uL 4.4-11.0 [facility] Blood erythrocytes count (nu mber/volume)Ordered By: Kianna Izquierdo on 07-04-2022 RBC (Bld) [#/Vol] 3.87 10*6/uL 4.2-5.4 [facility] Blood hemoglobin measurement (mass/volume)Ordered By: Kianna Izquierdo on 07-04-2022 Hemoglobin (Bld) [Mass/Vol] 10.4 g/dL 12.0-15.0 [facility] Blood platelet mean volumeOr dered By: Kianna Izquierdo on 07-04-2022 Platelet mean volume (Bld) [Entitic vol] 10.1 fL 6.2-12.0 [facility] Determination of erythrocyte mean corpuscular volume (MCV)Ordered By: Kianna Izquierdo on 07-04-2022 MCV (RBC) [Entitic vol] 88.9 fL 81-99 [facility] Hematocrit Auto (Bld) [Volum e fraction]Ordered By: Kianna Izquierdo on 07-04-2022 Hematocrit (Bld) [Volume fraction] 34.4 % 37-47 [facility] Laboratory - Chemistry and C hemistry - challengeOrdered By: Kianna Izquierdo on 07-04-2022 CO2 [Moles/Vol] 32.0 mmol/L 21.0-32.0 [facility] Urea nitrogen/Creatinine [Mass ratio] 11.0 mg/mg 10-20 [facility] Laboratory - Hematology and Cell countsOrdered By: Kianna Izquierdo on 07-04-2022 Erythrocyte distribution width (RBC) [Entitic vol] 47.1 fL 35.1-43.9 [facility] Erythrocyte distribution width (RBC) [Ratio] 14.6 % 11.6-14.6 [facility] MCH (RBC) [Entitic mass] 26.9 pg 27.0-32.0 [facility] Auto (RBC) [Mass/Vol]Or dered By: Kianna Izquierdo on 07-04-2022 MCHC (RBC) [Mass/Vol] 30.2 g/dL 32-36 [facility] No Panel InformationOrdered By: Kianna Izquierdo on 07-04-2022 Estimated GFR (MDRD) Amer 118 mL/min >60 [facility] Comment on above: GFR Calc Estimated GFR (MDRD) Non-Af Amer 98 mL/min >60 [facility] Comment on above: Non- GFR Calc Platelets bldOrdered By: Pet er Ramon on 07-04-2022 Platelets (Bld) [#/Vol] 365 10*3/uL 150-450 [facility] Serum or plasma calcium carlie urement (mass/volume)Ordered By: Kianna Izquierdo on 07-04-2022 Calcium [Mass/Vol] 8.9 mg/dL 8.5-10.1 [facility] Serum or plasma creatinine m easurement (mass/volume)Ordered By: Kianna Izquierdo on 07-04-2022 Creatinine [Mass/Vol] 0.63 mg/dL 0.55-1.02 [facility] Comment on above: The validity of the calculated GFR & GFRAA in patients over 70 years has not been determined. Clinical correlation is essential. Serum or plasma urea nitroge n measurement (mass/volume)Ordered By: Kianna Izquierdo on 07-04-2022 Urea nitrogen [Mass/Vol] 7 mg/dL 7-18 [facility] Thin prep Papanicolaou smear with manual screeningOrdered By: Kianna Izquierdo on 07-04-2022 Thin prep Papanicolaou smear with manual screening 4 5-15 [facility] Basophil percentageOrdered B y: Kianna Izquierdo on 06-27-2022 Chloride [Moles/Vol] 101 mmol/L 98-107 [facility] Cholesterol [Mass/Vol] 140 mg/dL <200 [facility] Comment on above: <200 mg/dL Desirable 200-240 mg/dL Borderline >240 mg/dL High Risk Glucose [Mass/Vol] 100 mg/dL 74-106 [facility] Comment on above: Fasting Glucose resu lt from 100 to 125 mg/dL suggests IMPAIRED HOMEOSTASIS per A.D.A. criteria. Potassium [Moles/Vol] 3.3 mmol/L 3.5-5.1 [facility] Sodium [Moles/Vol] 140 mmol/L 136-145 [facility] Triglyceride [Mass/Vol] 117 mg/dL <199 [facility] Comment on above: The drugs N-Acetylcy steine and Metamizole may falsely depress this assay.Serum Triglycerides Reference Interval Normal <150 mg/dL Borderline high 150 - 199 mg/dL High 200 - 499 mg/dL Very High > or = 500 mg/dL WBC (Bld) [#/Vol] 7.5 10*3/uL 4.4-11.0 [facility] Blood erythrocytes count (nu mber/volume)Ordered By: Kianna Izquierdo on 06-27-2022 RBC (Bld) [#/Vol] 3.81 10*6/uL 4.2-5.4 [facility] Blood hemoglobin measurement (mass/volume)Ordered By: Kianna Izquierdo on 06-27-2022 Hemoglobin (Bld) [Mass/Vol] 10.1 g/dL 12.0-15.0 [facility] Blood platelet mean volumeOr dered By: Kianna Izquierdo on 06-27-2022 Platelet mean volume (Bld) [Entitic vol] 10.1 fL 6.2-12.0 [facility] Determination of erythrocyte mean corpuscular volume (MCV)Ordered By: Kianna Izquierdo on 06-27-2022 MCV (RBC) [Entitic vol] 89.2 fL 81-99 [facility] Hematocrit Auto (Bld) [Volum e fraction]Ordered By: Kianna Izquierdo on 06-27-2022 Hematocrit (Bld) [Volume fraction] 34.0 % 37-47 [facility] Laboratory - Chemistry and C hemistry - challengeOrdered By: Kianna Izquierdo on 06-27-2022 CO2 [Moles/Vol] 31.0 mmol/L 21.0-32.0 [facility] Urea nitrogen/Creatinine [Mass ratio] 10.7 mg/mg 10-20 [facility] Laboratory - Hematology and Cell countsOrdered By: Kianna Izquierdo on 06-27-2022 Erythrocyte distribution width (RBC) [Entitic vol] 47.3 fL 35.1-43.9 [facility] Erythrocyte distribution width (RBC) [Ratio] 14.7 % 11.6-14.6 [facility] MCH (RBC) [Entitic mass] 26.5 pg 27.0-32.0 [facility] MCHC Auto (RBC) [Mass/Vol]Or dered By: Kianna Izquierdo on 06-27-2022 MCHC (RBC) [Mass/Vol] 29.7 g/dL 32-36 [facility] No Panel InformationOrdered By: Kianna Izquierdo on 06-27-2022 Estimated GFR (MDRD) Amer 98 mL/min >60 [facility] Comment on above: GFR Calc Estimated GFR (MDRD) Non-Af Amer 81 mL/min >60 [facility] Comment on above: Non- GFR Calc Platelets bldOrdered By: Apple Izquierdo on 06-27-2022 Platelets (Bld) [#/Vol] 354 10*3/uL 150-450 [facility] Serum or plasma calcium carlie urement (mass/volume)Ordered By: Kianna Izquierdo on 06-27-2022 Calcium [Mass/Vol] 8.6 mg/dL 8.5-10.1 [facility] Serum or plasma cholesterol in HDL measurement (mass/volume)Ordered By: Kianna Izquierdo on 06-27-2022 Cholesterol in HDL [Mass/Vol] 34 mg/dL >40 [facility] Comment on above: The drugs N-Acetylcy steine and Metamizole may falsely depress this assay. Reference Range HDL <40 mg/dL Low HDL Cholesterol HDL >or= 60 mg/dL High HDL Cholesterol Serum or plasma cholesterol in VLDL measurement (mass/volume)Ordered By: Kianna Izquierdo on 06-27-2022 Cholesterol in VLDL [Mass/Vol] 23 mg/dL 5-40 [facility] Serum or plasma creatinine m easurement (mass/volume)Ordered By: Kianna Izquierdo on 06-27-2022 Creatinine [Mass/Vol] 0.75 mg/dL 0.55-1.02 [facility] Comment on above: The validity of the calculated GFR & GFRAA in patients over 70 years has not been determined. Clinical correlation is essential. Serum or plasma low density lipoprotein (LDL) cholesterol measurement (mass/volume)Ordered By: Kianna Izquierdo on 06-27-2022 Cholesterol in LDL [Mass/Vol] 83 mg/dL 0-130 [facility] Serum or plasma urea nitroge n measurement (mass/volume)Ordered By: Kianna Izquierdo on 06-27-2022 Urea nitrogen [Mass/Vol] 8 mg/dL 7-18 [facility] Thin prep Papanicolaou smear with manual screeningOrdered By: Kianna Izquierdo on 06-27-2022 Thin prep Papanicolaou smear with manual screening 8 5-15 [facility] 36on 06-21-2022 36 Kellee from the [facility] [place] called back to check on status of getting pt scheduled for visit if needed. Advised that XR were ordered to be done by 06/15/22 at facility and sent to use for review. She is checking to see if XR were done and sent over to provider for review and will call back on , 06/23/22 with an update. Normal [facility] Basophil percentageOrdered B y: Kianna Izquierdo on 06-13-2022 Chloride [Moles/Vol] 102 mmol/L 98-107 [facility] Glucose [Mass/Vol] 102 mg/dL 74-106 [facility] Comment on above: Fasting Glucose resu lt from 100 to 125 mg/dL suggests IMPAIRED HOMEOSTASIS per A.D.A. criteria. Potassium [Moles/Vol] 3.7 mmol/L 3.5-5.1 [facility] Sodium [Moles/Vol] 140 mmol/L 136-145 [facility] WBC (Bld) [#/Vol] 10.4 10*3/uL 4.4-11.0 [facility] Blood erythrocytes count (nu mber/volume)Ordered By: Kianna Izquierdo on 06-13-2022 RBC (Bld) [#/Vol] 3.35 10*6/uL 4.2-5.4 [facility] Blood hemoglobin measurement (mass/volume)Ordered By: Kianna Izquierdo on 06-13-2022 Hemoglobin (Bld) [Mass/Vol] 9.3 g/dL 12.0-15.0 [facility] Blood platelet mean volumeOr dered By: Kianna Izquierdo on 06-13-2022 Platelet mean volume (Bld) [Entitic vol] 9.5 fL 6.2-12.0 [facility] Determination of erythrocyte mean corpuscular volume (MCV)Ordered By: Kianna Izquierdo on 06-13-2022 MCV (RBC) [Entitic vol] 90.7 fL 81-99 [facility] Hematocrit Auto (Bld) [Volum e fraction]Ordered By: Kianna Izquierdo on 06-13-2022 Hematocrit (Bld) [Volume fraction] 30.4 % 37-47 [facility] Laboratory - Chemistry and C hemistry - challengeOrdered By: Kianna Izquierdo on 06-13-2022 CO2 [Moles/Vol] 32.0 mmol/L 21.0-32.0 [facility] Urea nitrogen/Creatinine [Mass ratio] 9.7 mg/mg 10-20 [facility] Laboratory - Hematology and Cell countsOrdered By: Kianna Izquierdo on 06-13-2022 Erythrocyte distribution width (RBC) [Entitic vol] 51.8 fL 35.1-43.9 [facility] Erythrocyte distribution width (RBC) [Ratio] 15.6 % 11.6-14.6 [facility] MCH (RBC) [Entitic mass] 27.8 pg 27.0-32.0 [facility] MCHC Auto (RBC) [Mass/Vol]Or dered By: Kianna Izquierdo on 06-13-2022 MCHC (RBC) [Mass/Vol] 30.6 g/dL 32-36 [facility] No Panel InformationOrdered By: Kianna Izquierdo on 06-13-2022 Estimated GFR (MDRD) Amer 121 mL/min >60 [facility] Comment on above: GFR Calc Estimated GFR (MDRD) Non-Af Amer 100 mL/min >60 [facility] Comment on above: Non- GFR Calc Platelets bldOrdered By: Apple Izquierdo on 06-13-2022 Platelets (Bld) [#/Vol] 624 10*3/uL 150-450 [facility] Serum or plasma calcium carlie urement (mass/volume)Ordered By: Kianna Izquierdo on 06-13-2022 Calcium [Mass/Vol] 8.7 mg/dL 8.5-10.1 [facility] Serum or plasma creatinine m easurement (mass/volume)Ordered By: Kianna Izquierdo on 06-13-2022 Creatinine [Mass/Vol] 0.62 mg/dL 0.55-1.02 [facility] Comment on above: The validity of the calculated GFR & GFRAA in patients over 70 years has not been determined. Clinical correlation is essential. Serum or plasma urea nitroge n measurement (mass/volume)Ordered By: Kianna Izquierdo on 06-13-2022 Urea nitrogen [Mass/Vol] 6 mg/dL 7-18 [facility] Thin prep Papanicolaou smear with manual screeningOrdered By: Kianna Izquierdo on 06-13-2022 Thin prep Papanicolaou smear with manual screening 6 5-15 [facility] Basophil percentageOrdered B y: Kianna Izquierdo on 06-09-2022 Chloride [Moles/Vol] 101 mmol/L 98-107 [facility] Glucose [Mass/Vol] 111 mg/dL 74-106 [facility] Comment on above: Fasting Glucose resu lt from 100 to 125 mg/dL suggests IMPAIRED HOMEOSTASIS per A.D.A. criteria. Potassium [Moles/Vol] 3.1 mmol/L 3.5-5.1 [facility] Sodium [Moles/Vol] 139 mmol/L 136-145 [facility] WBC (Bld) [#/Vol] 11.4 10*3/uL 4.4-11.0 [facility] Blood erythrocytes count (nu mber/volume)Ordered By: Kianna Izquierdo on 06-09-2022 RBC (Bld) [#/Vol] 3.30 10*6/uL 4.2-5.4 [facility] Blood hemoglobin measurement (mass/volume)Ordered By: Kianna Izquierdo on 06-09-2022 Hemoglobin (Bld) [Mass/Vol] 9.2 g/dL 12.0-15.0 [facility] Blood platelet mean volumeOr dered By: Kianna Izquierdo on 06-09-2022 Platelet mean volume (Bld) [Entitic vol] 9.9 fL 6.2-12.0 [facility] Determination of erythrocyte mean corpuscular volume (MCV)Ordered By: Kianna Izquierdo on 06-09-2022 MCV (RBC) [Entitic vol] 89.7 fL 81-99 [facility] Hematocrit Auto (Bld) [Volum e fraction]Ordered By: Kianna Izquierdo on 06-09-2022 Hematocrit (Bld) [Volume fraction] 29.6 % 37-47 [facility] Laboratory - Chemistry and C hemistry - challengeOrdered By: Kianna Izquierdo on 06-09-2022 CO2 [Moles/Vol] 33.0 mmol/L 21.0-32.0 [facility] Urea nitrogen/Creatinine [Mass ratio] 12.0 mg/mg 10-20 [facility] Laboratory - Hematology and Cell countsOrdered By: Kianna Izquierdo on 06-09-2022 Erythrocyte distribution width (RBC) [Entitic vol] 50.8 fL 35.1-43.9 [facility] Erythrocyte distribution width (RBC) [Ratio] 15.5 % 11.6-14.6 [facility] MCH (RBC) [Entitic mass] 27.9 pg 27.0-32.0 [facility] MCHC Auto (RBC) [Mass/Vol]Or dered By: Kianna Izquierdo on 06-09-2022 MCHC (RBC) [Mass/Vol] 31.1 g/dL 32-36 [facility] No Panel InformationOrdered By: Kianna Izquierdo on 06-09-2022 Estimated GFR (MDRD) Amer 130 mL/min >60 [facility] Comment on above: GFR Calc Estimated GFR (MDRD) Non-Af Amer 108 mL/min >60 [facility] Comment on above: Non- GFR Calc Platelets bldOrdered By: Apple Izquierdo on 06-09-2022 Platelets (Bld) [#/Vol] 502 10*3/uL 150-450 [facility] Serum or plasma calcium carlie urement (mass/volume)Ordered By: Kianna Izquierdo on 06-09-2022 Calcium [Mass/Vol] 8.2 mg/dL 8.5-10.1 [facility] Serum or plasma creatinine m easurement (mass/volume)Ordered By: Kianna Izquierdo on 06-09-2022 Creatinine [Mass/Vol] 0.58 mg/dL 0.55-1.02 [facility] Comment on above: The validity of the calculated GFR & GFRAA in patients over 70 years has not been determined. Clinical correlation is essential. Serum or plasma urea nitroge n measurement (mass/volume)Ordered By: Kianna Izquierdo on 06-09-2022 Urea nitrogen [Mass/Vol] 7 mg/dL 7-18 [facility] Thin prep Papanicolaou smear with manual screeningOrdered By: Kianna Izquierdo on 06-09-2022 Thin prep Papanicolaou smear with manual screening 5 5-15 [facility] COVID-19on 06-05-2022 SARS-CoV-2 (COVID-19) RNA KAMLA+probe Ql (Unsp spec) Not detected Not Detected [facility] Comment on above: Not Detected. Expected result: Not Detected _ Method: Real-time, RT-PCR Negative results do not preclude SARS-CoV-2 infection and should not be used as the sole basis for treatment or other patient management decisions. This assay was developed by [employer] and distributed under an Emergency Use Authorization (EUA) granted by the FDA for the qualitative detection of SARS-CoV-2 nucleic acid. Provider and patient fact sheets can be found at https://www.fda.gov/media/080241/download and https://www.fda.gov/media/138943/download. [facility], [address] [place] [id number] [facility] [id number] 06-05-2022 SARS-CoV-2 (COVID-19) RNA KAMLA+probe Ql (Unsp spec) SARS-CoV-2 --> Status: F Not Detected. Expected result: Not Detected _ Method: Real-time, RT-PCR Negative results do not preclude SARS-CoV-2 infection and should not be used as the sole basis for treatment or other patient management decisions. This assay was developed by [employer] and distributed under an Emergency Use Authorization (EUA) granted by the FDA for the qualitative detection of SARS-CoV-2 nucleic acid. Provider and patient fact sheets can be found at https://www.fda.gov/me pio/313380/download and https://www.[employer].gov/me pio/140633/download. Expected result: Not Detected _ Method: Real-time, RT-PCR Negative results do not preclude SARS-CoV-2 infection and should not be used as the sole basis for treatment or other patient management decisions. This assay was developed by [employer] and distributed under an Emergency Use Authorization (EUA) granted by the FDA for the qualitative detection of SARS-CoV-2 nucleic acid. Provider and patient fact sheets can be found at https://www.fda.gov/me pio/211368/download and https://www.fda.gov/pr ipo/197230/download. Normal [facility] Comment on above: Performed By: #### B MP3, PT/AP, HEMOG, TROPN, LACT3, ETOH4 #### [facility] [address], [place] Basic Metabolic Panelon 10-2 Anion gap [Moles/Vol] 1 mmol/L Low 3-13 [facility] Comment on above: Performed By: #### B MP3, PT/AP, HEMOG, TROPN, LACT3, ETOH4 #### [place] [address] [address], [place] Calcium [Mass/Vol] 8.2 mg/dL Low 8.4-10.4 [facility] Comment on above: Performed By: #### B MP3, PT/AP, HEMOG, TROPN, LACT3, ETOH4 #### [facility] [address], [place] CO2 [Moles/Vol] 35 mmol/L High 22-30 [facility] Comment on above: Performed By: #### B MP3, PT/AP, HEMOG, TROPN, LACT3, ETOH4 #### [facility] [address], [place] Glucose [Mass/Vol] 145 mg/dL High 70-100 [facility] Comment on above: Performed By: #### B MP3, PT/AP, HEMOG, TROPN, LACT3, ETOH4 #### [place] [address] [address], [place] Urea nitrogen [Mass/Vol] 14 mg/dL Normal 9-20 [facility] Comment on above: Performed By: #### B MP3, PT/AP, HEMOG, TROPN, LACT3, ETOH4 #### [address] Creatinine [Mass/Vol] 0.66 mg/dL Normal 0.52-1.25 [facility] Comment on above: Performed By: #### B MP3, PT/AP, HEMOG, TROPN, LACT3, ETOH4 #### [address] GFR/1.73 sq M.predicted among blacks MDRD (S/P/Bld) [Vol rate/Area] mL/min/{1.73_m2} Normal >60 [facility] Comment on above: Performed By: #### B MP3, PT/AP, HEMOG, TROPN, LACT3, ETOH4 #### [place] [address] [place], [place] GFR/1.73 sq M.predicted among non-blacks MDRD (S/P/Bld) [Vol rate/Area] 87.7 mL/min/{1.73_m2} Normal >60 [facility] Comment on above: Result Comment: KDIG O guidelines provide the following GFR categories: Stage GFR(ml/min/1.73 m2) Terms G1 >=90 Normal or high G2 60-89 Mildly decreased* G3a 45-59 Mildly to moderately decreased G3b 30-44 Moderately to severely decreased G4 15-29 Severely decreased G5 <15 Kidney failure *Relative to young adult level. In the absence of evidence of kidney damage, neither GFR category G1 nor G2 fulfill the criteria for CKD. The CKD-EPI equation is validated in individuals 18 years of age and older. Currently the best equation for estimating glomerular filtration rate (GFR) from serum creatinine in children is the Bedside Fuchs equation. It is less accurate in patients with extremes of muscle mass, restriction of dietary protein, ingestion of creatine, extra-renal metabolism of creatinine, or treatment with medications that affect renal tubular creatinine secretion. Performed By: #### B MP3, PT/AP, HEMOG, TROPN, LACT3, ETOH4 #### [address] Chloride [Moles/Vol] 101 mmol/L Normal 98-107 [facility] Comment on above: Performed By: #### B MP3, PT/AP, HEMOG, TROPN, LACT3, ETOH4 #### [address] Potassium [Moles/Vol] 3.5 mmol/L Normal 3.5-5.1 [facility] Comment on above: Performed By: #### B MP3, PT/AP, HEMOG, TROPN, LACT3, ETOH4 #### [place] [address] [place], [place] Sodium [Moles/Vol] 138 mmol/L Normal 135-145 [facility] Comment on above: Performed By: #### B MP3, PT/AP, HEMOG, TROPN, LACT3, ETOH4 #### [address] Anion gap [Moles/Vol] 1 mmol/L Low 3 - 13 mmol/L [facility] Calcium [Mass/Vol] 8.2 mg/dL Low 8.4 - 10. 4 mg/dL [facility] Chloride [Moles/Vol] 101 mmol/L 98 - 10 7 mmol/L [facility] CO2 [Moles/Vol] 35 mmol/L High 22 - 30 mmol/L [facility] Creatinine [Mass/Vol] 0.66 mg/dL 0.52 - 1.25 mg/dL [facility] eGFR mL/min 60 - P INF mL/min [facility] EGFR IF NonAfrican Hungarian 87.7 mL/min 60 - PINF mL/min [facility] Comment on above: KDIGO guidelines pro vide the following GFR categories: Stage GFR(ml/min/1.73 m2) Terms G1 >=90 Normal or high G2 60-89 Mildly decreased* G3a 45-59 Mildly to moderately decreased G3b 30-44 Moderately to severely decreased G4 15-29 Severely decreased G5 <15 Kidney failure *Relative to young adult level. In the absence of evidence of kidney damage, neither GFR category G1 nor G2 fulfill the criteria for CKD. The CKD-EPI equation is validated in individuals 18 years of age and older. Currently the best equation for estimating glomerular filtration rate (GFR) from serum creatinine in children is the Bedside Fuchs equation. It is less accurate in patients with extremes of muscle mass, restriction of dietary protein, ingestion of creatine, extra-renal metabolism of creatinine, or treatment with medications that affect renal tubular creatinine secretion. Glucose [Mass/Vol] 145 mg/dL High 70 - 100 mg/dL [facility] Interpretation and review of laboratory results Abnormal [facility] Potassium [Moles/Vol] 3.5 mmol/L 3.5 - 5.1 mmol/L [facility] Sodium [Moles/Vol] 138 mmol/L 135 - 145 mmol/L [facility] Urea nitrogen (BldV) [Mass/Vol] 14 mg/dL 9 - 20 mg/dL [facility] Test Performed by [address] LAB [facility] CBC with Auto Differentialon 06-03-2022 Absolute Baso # 0.1 10*3/uL 0.0 - 0.2 10*3/uL [facility] Absolute Neut # 7.8 10*3/uL High 1.8 - 7.0 10*3/uL [facility] Basophils/100 WBC (Bld) 0.8 % 0.0 - 2.0 % [facility] Eosinophils (Bld) [#/Vol] 0.5 10*3/uL 0.0 - 0.5 10*3/uL [facility] Eosinophils/100 WBC (Bld) 4.5 % 1.0 - 6.0 % [facility] Granulocytes/100 WBC (Bld) 75.6 % 40.0 - 80.0 % [facility] Hematocrit (Bld) [Volume fraction] 25.4 % Low 35.0 - 47.0 % [facility] Hemoglobin (Bld) [Mass/Vol] 8.3 g/dL Low 11.7 - 16.0 g/dL [facility] Interpretation and review of laboratory results Abnormal [facility] Lymphocytes (Bld) [#/Vol] 1.3 10*3/uL 1.0 - 4.3 10*3/uL [facility] Lymphocytes/100 WBC (Bld) 12.3 % Low 20.0 - 40.0 % [facility] MCH (RBC) [Entitic mass] 28.1 pg 26.0 - 34.0 pg [facility] MCHC (RBC) [Mass/Vol] 32.6 % 32.0 - 36.0 % [facility] MCV (RBC) [Entitic vol] 86.3 fL 79.0 - 98.0 fL [facility] Monocytes (Bld) [#/Vol] 0.7 10*3/uL 0.0 - 0.8 10*3/uL [facility] Monocytes/100 WBC (Bld) 6.8 % 2.0 - 10.0 % [facility] Platelet distribution width (Bld) [Ratio] 15.8 % High 11.5 - 14.5 % [facility] Platelet mean volume (Bld) [Entitic vol] 8.1 fL 7.4 - 12.4 fL [facility] Comment on above: MPV is a calculated measurement using platelet volume ratio. Platelets (Bld) [#/Vol] 249 10*3/uL 140 - 440 10*3/uL [facility] RBC (Bld) [#/Vol] 2.95 10*6/uL Low 3.80 - 5.2 0 10*6/uL [facility] WBC (Bld) [#/Vol] 10.3 10*3/uL 3.6 - 10.7 10*3/uL [facility] Test Performed by [id number] [place] [address] LAB [facility] Hem[facility] w/ Autodiffon 06-03 Abs Baso Cnt 0.1 10*3/uL Normal 0.0-0.2 [facility] Comment on above: Performed By: #### B MP3, HEMDF #### [address] [id number] Abs Neutrophile Cnt 7.8 10*3/uL High 1.8-7.0 [facility] Comment on above: Performed By: #### B MP3, HEMDF #### [place] [address] [place] [address] Basophils/100 WBC (Bld) 0.8 % Normal 0.0-2.0 [facility] Comment on above: Performed By: #### B MP3, HEMDF #### [place] [address] [place] [address] Eosinophils (Bld) [#/Vol] 0.5 10*3/uL Normal 0.0-0.5 [facility] Comment on above: Performed By: #### B MP3, HEMDF #### [facility] [address], [place] Eosinophils/100 WBC (Bld) 4.5 % Normal 1.0-6.0 [facility] Comment on above: Performed By: #### B MP3, HEMDF #### [facility] [address], [place] Erythrocyte distribution width (RBC) [Ratio] 15.8 % High 11.5-14.5 [facility] Comment on above: Performed By: #### B MP3, HEMDF #### [facility] [address], [place] Granulocytes/100 WBC (Bld) 75.6 % Normal 40.0-80.0 [facility] Comment on above: Performed By: #### B MP3, HEMDF #### [place] [address] [address], [place] Hematocrit (Bld) [Volume fraction] 25.4 % Low 35.0-47.0 [facility] Comment on above: Performed By: #### B MP3, HEMDF #### [place] [address] [address], [place] Hemoglobin (Bld) [Mass/Vol] 8.3 g/dL Low 11.7-16.0 [facility] Comment on above: Performed By: #### B MP3, HEMDF #### [facility] [address], [place] Lymphocytes (Bld) [#/Vol] 1.3 10*3/uL Normal 1.0-4.3 [facility] Comment on above: Performed By: #### B MP3, HEMDF #### [facility] [address], [place] Lymphocytes/100 WBC (Bld) 12.3 % Low 20.0-40.0 [facility] Comment on above: Performed By: #### B MP3, HEMDF #### [place] [address] [address], [place] MCH (RBC) [Entitic mass] 28.1 pg Normal 26.0-34.0 [facility] Comment on above: Performed By: #### B MP3, HEMDF #### [address] MCHC 32.6 % Normal 32.0-36.0 [facility] Comment on above: Performed By: #### B MP3, HEMDF #### [place] [address] [place], [place] MCV (RBC) [Entitic vol] 86.3 fL Normal 79.0-98.0 [facility] Comment on above: Performed By: #### B MP3, HEMDF #### [address] Monocytes (Bld) [#/Vol] 0.7 10*3/uL Normal 0.0-0.8 [facility] Comment on above: Performed By: #### B MP3, HEMDF #### [address] Monocytes/100 WBC (Bld) 6.8 % Normal 2.0-10.0 [facility] Comment on above: Performed By: #### B MP3, HEMDF #### [address] Platelet mean volume (Bld) [Entitic vol] 8.1 fL Normal 7.4-12.4 [facility] Comment on above: Result Comment: MPV is a calculated measurement using platelet volume ratio. Performed By: #### B MP3, HEMDF #### [place] [address] [address], [place] Platelets (Bld) [#/Vol] 249 10*3/uL Normal 140-440 [facility] Comment on above: Performed By: #### B MP3, HEMDF #### [address] RBC (Bld) [#/Vol] 2.95 10*6/uL Low 3.80-5.20 [facility] Comment on above: Performed By: #### B MP3, HEMDF #### [employer] [address] [place] [address] WBC (Bld) [#/Vol] 10.3 10*3/uL Normal 3.6-10.7 [facility] [employer] Comment on above: Performed By: #### B MP3, HEMDF #### [employer] [address] [place] [address] VL DUP LOWER EXTREMITY VENOU S BILATERALon 06-02-2022 [facility] ----- Lower Extremity Venous Duplex Report Patient [place], : 1950 Study 06/02/2022 Name: Andre (71yrs) Date: Age: 71 Account: [id number] Gender: F Loc: 6118 BP: Ordering Physician: Radha Moon Boiler/Chiller Technician: Liliana Mejia RVT Interpreting Physician: Kwesi Gooden MD ----- Location: [facility] ----- Indications: Lower extremity pain and swelling status post left hip and leg trauma on prolonged bedrest. ----- Conclusions 1. There is no evidence of acute deep or superficial venous thrombosis noted in the right lower extremity. 2. There is no evidence of acute deep or superficial venous thrombosis noted in the left lower extremity. ----- History: Risk factors: Obese. Immobility. Age over 65 years. ----- Study data: Complete lower extremity venous duplex evaluation. Grayscale 2D imaging, color Doppler imaging, and spectral Doppler analysis. Location: Vascular laboratory. Procedure: A vascular evaluation was performed with the patient in the supine position. Images were obtained using a [employer] vascular ultrasound machine. ----- Venous flow and imaging: + +- ------+ ------+ ----+ +Location +Overall+Properties +Comments + + +- ------+ ------+ ----+ +R CFV +Patent +Normal phasicity; + + + + +spontaneous; normal + + + + +augmentation; + + + + +compressible + + + +- ------+ ------+ ----+ +R saphenofemoral +Patent +Compressible + + +junction + + + + + +- ------+ ------+ ----+ +R profunda femoral +Patent + + + + +- ------+ ------+ ----+ +R FV - prox. +Patent +Compressible + + + +- ------+ ------+ ----+ +R FV - mid +Patent +Normal phasicity; + + + + +spontaneous; normal + + + + +augmentation; + + + + +compressible + + + +- ------+ ------+ ----+ +R FV - distal +Patent +Compressible + + + +- ------+ ------+ ----+ +R popliteal +Patent +Normal phasicity; + + + + +spontaneous; normal + + + + +augmentation; + + + + +compressible + + + +- ------+ ------+ ----+ +R gastrocnemius +Patent +Compressible + + + +- ------+ ------+ ----+ +R PTV +Patent +Compressible + + + +- ------+ ------+ ----+ +R peroneal +Patent +Compressible + + + +- ------+ ------+ ----+ +R soleal +Patent +Compressible + + + +- ------+ ------+ ----+ +R GSV +Patent +Compressible + + + +- ------+ ------+ ----+ +L CFV +Patent +Normal phasicity; + + + + +spontaneous; normal + + + + +augmentation; + + + + +compressible + + + +- ------+ ------+ ----+ +L saphenofemoral +Patent +Comp (more content not included)... [facility] Kwesi Gooden MD - 06/02/2022 [facility] ----- Lower Extremity Venous Duplex Report Patient Linwood : 1950 Study 06/02/2022 Name: Andre (71yrs) Date: Age: 71 Account: [id number] Gender: F Loc: 6118 BP: Ordering Physician: Radha Moon Boiler/Chiller Technician: Liliana Mejia RVT Interpreting Physician: Kwesi Gooden MD ----- Location: [facility] ----- Indications: Lower extremity pain and swelling status post left hip and leg trauma on prolonged bedrest. ----- Conclusions 1. There is no evidence of acute deep or superficial venous thrombosis noted in the right lower extremity. 2. There is no evidence of acute deep or superficial venous thrombosis noted in the left lower extremity. ----- History: Risk factors: Obese. Immobility. Age over 65 years. ----- Study data: Complete lower extremity venous duplex evaluation. Grayscale 2D imaging, color Doppler imaging, and spectral Doppler analysis. Location: Vascular laboratory. Procedure: A vascular evaluation was performed with the patient in the supine position. Images were obtained using a [employer] vascular ultrasound machine. ----- Venous flow and imaging: + +- ------+ ------+ ----+ +Location +Overall+Properties +Comments + + +- ------+ ------+ ----+ +R CFV +Patent +Normal phasicity; + + + + +spontaneous; normal + + + + +augmentation; + + + + +compressible + + + +- ------+ ------+ ----+ +R saphenofemoral +Patent +Compressible + + +junction + + + + + +- ------+ ------+ ----+ +R profunda femoral +Patent + + + + +- ------+ ------+ ----+ +R FV - prox. +Patent +Compressible + + + +- ------+ ------+ ----+ +R FV - mid +Patent +Normal phasicity; + + + + +spontaneous; normal + + + + +augmentation; + + + + +compressible + + + +- ------+ ------+ ----+ +R FV - distal +Patent +Compressible + + + +- ------+ ------+ ----+ +R popliteal +Patent +Normal phasicity; + + + + +spontaneous; normal + + + + +augmentation; + + + + +compressible + + + +- ------+ ------+ ----+ +R gastrocnemius +Patent +Compressible + + + +- ------+ ------+ ----+ +R PTV +Patent +Compressible + + + +- ------+ ------+ ----+ +R peroneal +Patent +Compressible + + + +- ------+ ------+ ----+ +R soleal +Patent +Compressible + + + +- ------+ ------+ ----+ +R GSV +Patent +Compressible + + + +- ------+ ------+ ----+ +L CFV +Patent +Normal phasicity; + + + + +spontaneous; normal + + + + +augmentation; + + + + +compressible + + + +- ------+ ------+ ----+ +L saphenofemoral +Patent +Compressible + + +junction + + + + + +- ------+ ------+ ----+ +L profunda femoral +Patent + + + + +- ------+ ------+ ----+ +L FV - prox. +Patent +Compressible + + + +- ------+ ------+ ----+ +L FV - mid +Patent +Normal phasicity; + + + + +spontaneous; normal + + + + +augmentation; + + + + +compressible + + + +- ------+ ------+ ----+ +L FV - distal +Patent +Compressible + + + +- ------+ ------+ ----+ +L popliteal +Patent +Normal phasicity; + + + + +spontaneous; normal + + + + + (more content not included)... [employer] Phone: Radiology Study observation (narrative) [employer] Phone: VL DUP LOWER EXTREMITY VENOU S BILATERALOrdered By: Kwesi Gooden on 06-02-2022 [facility] Work Phone: VL Venous Duplex US Lower Ex t Bilateralon 06-02-2022 VL Venous Duplex US Lower Ext Bilateral Patient Name: ANDRE BLANCA Ultrasound ACCESSION EXAM DATE/TIME PROCEDURE ORDERING PROVIDER [id number] 06/02/2022 10:59 EDT VL Venous Duplex [place] [id number] -RADHA MOON Lower Ext Bilateral CPT code 05549 Reason For Exam (VL Venous Duplex US Lower Ext Bilateral) edema Report [facility] ----- Lower Extremity Venous Duplex Report Patient DO LinwoodB: 1950 Study 06/02/2022 Name: Andre (71yrs) Date: Age: 71 Account: [id number] Gender: F Loc: 6118 BP: Ordering Physician: Radha Moon Boiler/Chiller Technician: Liliana Mejia RVT Interpreting Physician: Kwesi Gooden MD ----- Location: [facility] ----- Indications: Lower extremity pain and swelling status post left hip and leg trauma on prolonged bedrest. ----- Conclusions 1. There is no evidence of acute deep or superficial venous thrombosis noted in the right lower extremity. 2. There is no evidence of acute deep or superficial venous thrombosis noted in the left lower extremity. ----- History: Risk factors: Obese. Immobility. Age over 65 years. ----- Study data: Complete lower extremity venous duplex evaluation. Grayscale 2D imaging, color Doppler imaging, and spectral Doppler analysis. Location: Vascular laboratory. Procedure: A vascular evaluation was performed with the patient in the supine position. Images were obtained using a [employer] vascular ultrasound machine. ----- Ultrasound Report Venous flow and imaging: + +- ------+ ------+ ----+ +Location +Overall+Properties +Comments + + +- ------+ ------+ ----+ +R CFV +Patent +Normal phasicity; + + + + +spontaneous; normal + + + + +augmentation; + + + + +compressible + + + +- ------+ ------+ ----+ +R saphenofemoral +Patent +Compressible + + +junction + + + + + +- ------+ ------+ ----+ +R profunda femoral +Patent + + + + +- ------+ ------+ ----+ +R FV - prox. +Patent +Compressible + + + +- ------+ ------+ ----+ +R FV - mid +Patent +Normal phasicity; + + + + +spontaneous; normal + + + + +augmentation; + + + + +compressible + + + +- ------+ ------+ ----+ +R FV - distal +Patent +Compressible + + + +- ------+ ------+ ----+ +R popliteal +Patent +Normal phasicity; + + + + +spontaneous; normal + + + + +augmentation; + + + + +compressible + + + +- ------+ ------+ ----+ +R gastrocnemius +Patent +Compressible + + + +- ------+ ------+ ----+ +R PTV +Patent +Compressible + + + +- ------+ ------+ ----+ +R peroneal +Patent +Compressible + + + +- ------+ ------+ ----+ +R soleal +Patent +Compressible + + + +- ------+ ------+ ----+ +R GSV +Patent +Compressible + + + +- ------+ ------+ ----+ +L CFV +Patent +Normal phasicity; + + + + +spontaneous; normal + + + + +augmentation; + + + + +compressible + + + +- ------+ ------+ ----+ +L saphenofemoral +Patent +Compressible + + +junction + + + + + +- ------+ ------+ ----+ +L profunda femoral +Patent + + + + +- ------+ ------+ ----+ +L FV - prox. +Patent +Compressible + + + +- ------+ ------+ ----+ +L FV - mid +Patent +Normal phasicity; + + + + +spontaneous; normal + + + + +augmentation; + + + + +compressible + + + +- ------+ ------+ (more content not included)... Normal [employer] Basic Metabolic Panelon 10- Calcium [Mass/Vol] 8.7 mg/dL Normal 8.4-10.4 [employer] Comment on above: Performed By: #### H EMOG, BMP3M, LACT3 #### [employer] [address] [place] [id number] Anion gap [Moles/Vol] 4 mmol/L Normal 3-13 [facility] Comment on above: Performed By: #### H EMOG, BMP3M, LACT3 #### [address] CO2 [Moles/Vol] 31 mmol/L High 22-30 [facility] Comment on above: Performed By: #### H EMOG, BMP3M, LACT3 #### [address] Creatinine [Mass/Vol] 0.78 mg/dL Normal 0.52-1.25 [facility] Comment on above: Performed By: #### H EMOG, BMP3M, LACT3 #### [address] GFR/1.73 sq M.predicted among blacks MDRD (S/P/Bld) [Vol rate/Area] 87.5 mL/min/{1.73_m2} Normal >60 [facility] Comment on above: Performed By: #### H EMOG, BMP3M, LACT3 #### [address] GFR/1.73 sq M.predicted among non-blacks MDRD (S/P/Bld) [Vol rate/Area] 75.5 mL/min/{1.73_m2} Normal >60 [facility] Comment on above: Result Comment: KDIG O guidelines provide the following GFR categories: Stage GFR(ml/min/1.73 m2) Terms G1 >=90 Normal or high G2 60-89 Mildly decreased* G3a 45-59 Mildly to moderately decreased G3b 30-44 Moderately to severely decreased G4 15-29 Severely decreased G5 <15 Kidney failure *Relative to young adult level. In the absence of evidence of kidney damage, neither GFR category G1 nor G2 fulfill the criteria for CKD. The CKD-EPI equation is validated in individuals 18 years of age and older. Currently the best equation for estimating glomerular filtration rate (GFR) from serum creatinine in children is the Bedside Fuchs equation. It is less accurate in patients with extremes of muscle mass, restriction of dietary protein, ingestion of creatine, extra-renal metabolism of creatinine, or treatment with medications that affect renal tubular creatinine secretion. Performed By: #### H EMOG, BMP3M, LACT3 #### [facility] [address], [place] Glucose [Mass/Vol] 155 mg/dL High 70-100 [facility] Comment on above: Performed By: #### H EMOG, BMP3M, LACT3 #### [facility] [address], [place] Urea nitrogen [Mass/Vol] 14 mg/dL Normal 9-20 [facility] Comment on above: Performed By: #### H EMOG, BMP3M, LACT3 #### [place] [facility] [address], [place] Chloride [Moles/Vol] 102 mmol/L Normal 98-107 [facility] Comment on above: Performed By: #### H EMOG, BMP3M, LACT3 #### [place] [address] [address], [place] Potassium [Moles/Vol] 4.1 mmol/L Normal 3.5-5.1 [facility] Comment on above: Performed By: #### H EMOG, BMP3M, LACT3 #### [place] [address] [address], [place] Sodium [Moles/Vol] 137 mmol/L Normal 135-145 [facility] Comment on above: Performed By: #### H EMOG, BMP3M, LACT3 #### [place] [address] [address], [place] Basic Metabolic Panel w/ Ref nick to MGon 06-01-2022 Anion gap [Moles/Vol] 4 mmol/L 3 - 13 mmol/L [facility] Work Phone: Calcium [Mass/Vol] 8.7 mg/dL 8.4 - 10. 4 mg/dL [facility] Work Phone: Chloride [Moles/Vol] 102 mmol/L 98 - 10 7 mmol/L [facility] Work Phone: CO2 [Moles/Vol] 31 mmol/L High 22 - 30 mmol/L [facility] Work Phone: Creatinine [Mass/Vol] 0.78 mg/dL 0.52 - 1.25 mg/dL [employer] Work Phone: EGFR IF NonAfrican Hungarian 75.5 mL/min 60 - PINF mL/min [employer] Work Phone: Comment on above: KDIGO guidelines pro vide the following GFR categories: Stage GFR(ml/min/1.73 m2) Terms G1 >=90 Normal or high G2 60-89 Mildly decreased* G3a 45-59 Mildly to moderately decreased G3b 30-44 Moderately to severely decreased G4 15-29 Severely decreased G5 <15 Kidney failure *Relative to young adult level. In the absence of evidence of kidney damage, neither GFR category G1 nor G2 fulfill the criteria for CKD. The CKD-EPI equation is validated in individuals 18 years of age and older. Currently the best equation for estimating glomerular filtration rate (GFR) from serum creatinine in children is the Bedside Fuchs equation. It is less accurate in patients with extremes of muscle mass, restriction of dietary protein, ingestion of creatine, extra-renal metabolism of creatinine, or treatment with medications that affect renal tubular creatinine secretion. GFR/1.73 sq M.predicted among blacks MDRD (S/P/Bld) [Vol rate/Area] 87.5 mL/min/{1.73_m2} 60 - PINF mL/min [employer] Work Phone: Glucose [Mass/Vol] 155 mg/dL High 70 - 100 mg/dL [employer] Work Phone: Interpretation and review of laboratory results Abnormal [employer] Work Phone: Potassium [Moles/Vol] 4.1 mmol/L 3.5 - 5.1 mmol/L [employer] Work Phone: Sodium [Moles/Vol] 137 mmol/L 135 - 145 mmol/L [employer] Work Phone: Urea nitrogen (BldV) [Mass/Vol] 14 mg/dL 9 - 20 mg/dL [facility] Work Phone: Test Performed by [employer] [address] [employer] [facility] [employer] Work Phone: [phone] 06-01-2022 Hematocrit (Bld) [Volume fraction] 30.0 % Low 35.0 - 47.0 % [facility] Work Phone: Hemoglobin (Bld) [Mass/Vol] 9.6 g/dL Low 11.7 - 16.0 g/dL [facility] Work Phone: Interpretation and review of laboratory results Abnormal [facility] Work Phone: MCH (RBC) [Entitic mass] 27.0 pg 26.0 - 34.0 pg [facility] Work Phone: MCHC (RBC) [Mass/Vol] 32.0 % 32.0 - 36.0 % [facility] Work Phone: MCV (RBC) [Entitic vol] 84.4 fL 79.0 - 98.0 fL [facility] Work Phone: Platelet distribution width (Bld) [Ratio] 15.4 % High 11.5 - 14.5 % [facility] Work Phone: Platelet mean volume (Bld) [Entitic vol] 8.1 fL 7.4 - 12.4 fL [facility] Work Phone: Comment on above: MPV is a calculated measurement using platelet volume ratio. Platelets (Bld) [#/Vol] 256 10*3/uL 140 - 440 10*3/uL [employer] Work Phone: RBC (Bld) [#/Vol] 3.55 10*6/uL Low 3.80 - 5.2 0 10*6/uL [facility] Work Phone: WBC (Bld) [#/Vol] 12.2 10*3/uL High 3.6 - 10.7 10*3/uL [employer] Work Phone: -7 Test Performed by [employer] [address] [employer] [facility] Work Phone: [phone] CR Foot Complete 3+ Views Le fton 06-01-2022 CR Foot Complete 3+ Views Left Patient Name: ANDRE BLANCA Diagnostic Radiology ACCESSION EXAM DATE/TIME PROCEDURE ORDERING PROVIDER [id number] 05/31/2022 23:52 EDT CR Foot Complete 3+ [id number] -BROSCHINSKY, Views Left GILLIAN CPT code 52730 Reason For Exam (CR Foot Complete 3+ Views Left) toe bruising Report LEFT FOOT 3 VIEWS CLINICAL INDICATION: toe bruising TECHNIQUE: 3 views of the left foot. COMPARISON: None. FINDINGS: Diffuse osteopenia. Slight cortical irregularity in the distal lateral aspect of little toe proximal phalanx. Probable old fracture deformity in great toe metatarsal. No dislocation. Degenerative change in the great toe MTP joint and less severe degenerative change scattered in the other IP joints. Soft tissues grossly unremarkable. IMPRESSION: 1. Findings suspicious for small and nondisplaced fracture in the distal aspect of little toe proximal phalanx. Correlate clinically. 2. Degenerative change. Report Dictated on Final Dictated: 05/31/2022 11:51 pm Dictating Physician: MD OCHOA WENDELL Signed Date and Time: 05/31/2022 11:54 pm Signed by: MD OCHOA WENDELL Transcribed Date and Time: 05/31/2022 11:51 Normal [facility] Hemogramon 06-01-2022 Erythrocyte distribution width (RBC) [Ratio] 15.4 % High 11.5-14.5 [facility] Comment on above: Performed By: #### H EMOG, BMP3M, LACT3 #### [address] Hematocrit (Bld) [Volume fraction] 30.0 % Low 35.0-47.0 [facility] Comment on above: Performed By: #### H EMOG, BMP3M, LACT3 #### [facility] [address], [place] Hemoglobin (Bld) [Mass/Vol] 9.6 g/dL Low 11.7-16.0 [facility] Comment on above: Performed By: #### H EMOG, BMP3M, LACT3 #### [facility] [address], [place] MCH (RBC) [Entitic mass] 27.0 pg Normal 26.0-34.0 [facility] Comment on above: Performed By: #### H EMOG, BMP3M, LACT3 #### [facility] [address], [place] MCHC 32.0 % Normal 32.0-36.0 [facility] Comment on above: Performed By: #### H EMOG, BMP3M, LACT3 #### [facility] [address], [place] MCV (RBC) [Entitic vol] 84.4 fL Normal 79.0-98.0 [facility] Comment on above: Performed By: #### H EMOG, BMP3M, LACT3 #### [address] Platelet mean volume (Bld) [Entitic vol] 8.1 fL Normal 7.4-12.4 [facility] Comment on above: Result Comment: MPV is a calculated measurement using platelet volume ratio. Performed By: #### H EMOG, BMP3M, LACT3 #### [place] [address] [place], [place] Platelets (Bld) [#/Vol] 256 10*3/uL Normal 140-440 [facility] Comment on above: Performed By: #### H EMOG, BMP3M, LACT3 #### [place] [address] [address], [place] RBC (Bld) [#/Vol] 3.55 10*6/uL Low 3.80-5.20 [facility] Comment on above: Performed By: #### H EMOG, BMP3M, LACT3 #### [place] [address] [address], [place] WBC (Bld) [#/Vol] 12.2 10*3/uL High 3.6-10.7 [facility] Comment on above: Performed By: #### H EMOG, BMP3M, LACT3 #### [place] [address] [address], [place] Lactic Acidon 10-19-2022 Lactate [Moles/Vol] 1.6 mmol/L Normal 0.7-2.0 [facility] [employer] Comment on above: Performed By: #### H EMOG, BMP3M, LACT3 #### [facility] [employer] [address] [address] Lactate [Moles/Vol] 1.6 mmol/L 0.7 - 2. 0 mmol/L [employer] Work Phone: Test Performed by [employer], [address] [place] [address] [facility] Work Phone: OPERATIVE REPORTon 2 Ordered by an unspecified provider. [facility] Op Noteon 06-01-2022 Op Note [facility] [address] [facility] [address] Dept: [phone] Loc: [phone] Operative Report Patient Name: Andre Blanca Date of : 1950 Date of Surgery: 06/01/22 Pre-operative diagnosis: Left olecranon fracture Post-operative diagnosis: Same Procedure(s): Open reduction internal fixation of left olecranon fracture (CPT 46497) Surgeon: Neto Jacobsen M.D. Countersinker Balance Screw Hole(s): Derek Love M.D. and Geronimo Rodriguez M.D. Anesthesia: General EBL: Minimal IVF: Crystalloid Medications: Two grams of Cefazolin were given. Implants: [employer] olecranon locking plate Clinical History/Indication for Surgery The patient is a 71 y.o. year old female who was presents for operative fixation of a displaced left olecranon fracture. Typical indications for surgery were reviewed and operative fixation was recommended. Risks of fracture surgery in general were reviewed including, but not limited to, infection, non-union, need for additional procedures, painful or prominent hardware which could require removal, failure of fixation which would require revision, damage to normal structures as well as medical complications such as LA, stroke, PE, DVT, and even . Pt was given opportunity to ask questions and consider her options. She ultimately elected to proceed with surgery. No guarantees were given or implied. Operative Narration The patient was identified in the pre-operative holding area. The surgical site was identified and marked. Informed consent was obtained. The patient was then brought to the operating room and placed supine on the operating table. Anesthesia was administered and care of the head, neck, and airway was maintained by the anesthesia staff throughout the entire procedure. The patient was turned lateral with an axillary roll placed. All bony prominences were identified and padded and the shafer bag inflated. A tourniquet was applied to the arm of the operative extremity. The arm was prepped and draped in the usual sterile fashion. A surgical timeout was performed. Antibiotics were confirmed to have been given. After exsanguination the tourniquet was inflated. A subcutaneous approach to the proximal ulna was utilized. The fracture site was exposed, cleaned, and irrigated. The free articular fragment was reduced the main olecranon piece and held with w 2mm screws. The fracture was reduced and held provisionally with clamps and k-wires. The appropriate length [employer] olecranon plate was applied and fixed distally using cortical screws and proximally using locking screws with care taken to compress the fracture maximally. Cancellous chips were packed into the void to help support the articular depression. A transverse drill hole was made in the ulna and a #5 Fiberwire was placed through this and then through the distal triceps tendon to help reinforce the tenuous bony fixation. Range of motion of the elbow showed no crepitus or evidence of intra-articular hardware. Fluoroscopic imaging confirmed an excellent overall reduction and appropriate placement of all hardware. Wounds were copiously irrigated with sterile saline and closed in a layered fashion. A sterile compressive dressing was applied followed by a well-padded long arm splint. Once the patient was awakened from anesthesia, they were transported to the PACU in stable condition, having tolerated surgery well with no obvious complications. Postoperative Plan NWB through arm Finger ROM This operative report was prepared and signed by Neto Jacobsen MD at 06/01/22, 11:35 AM Normal [facility] Vit D 25-OH, Totalon 022 Vit D 25-OH, Total 18 ng/mL Low 30-100 [facility] Comment on above: Result Comment: Ther apy is based on measurement of Total 25-OHD with the following classification levels: Less than 20 ng/mL: Indicative of Vit D deficiency 20-30 ng/mL: Suggests Vit D insufficiency Optimal: Greater than or equal to 30 ng/mL Test performed by [employer], measuring Total Vitamin D, not individual fractions. Performed By: #### B MP3, PT/AP, HEMOG, TROPN, LACT3, ETOH4 #### [facility] [address] [place] [address] Vitamin D 25 Hydroxyon 06-01 Interpretation and review of laboratory results Abnormal [facility] Vit D, 25-Hydroxy 18 ng/mL Low 30 - 100 ng/mL [facility] Comment on above: Therapy is based on measurement of Total 25-OHD with the following classification levels: Less than 20 ng/mL: Indicative of Vit D deficiency 20-30 ng/mL: Suggests Vit D insufficiency Optimal: Greater than or equal to 30 ng/mL Test performed by [employer], measuring Total Vitamin D, not individual fractions. Test Performed by [facility], [address] [place] [address] Basic Metabolic Panelon 05-14 Anion gap [Moles/Vol] 7 mmol/L Normal 3-13 [facility] Comment on above: Performed By: #### B MP3, PT/AP, HEMOG, TROPN, LACT3, ETOH4 #### [address] [address] Calcium [Mass/Vol] 8.7 mg/dL Normal 8.4-10.4 [facility] Comment on above: Performed By: #### B MP3, PT/AP, HEMOG, TROPN, LACT3, ETOH4 #### [facility] [address] [place] [address] CO2 [Moles/Vol] 29 mmol/L Normal 22-30 [facility] Comment on above: Performed By: #### B MP3, PT/AP, HEMOG, TROPN, LACT3, ETOH4 #### [facility] [address] [place] [address] Creatinine [Mass/Vol] 0.63 mg/dL Normal 0.52-1.25 [facility] Comment on above: Performed By: #### B MP3, PT/AP, HEMOG, TROPN, LACT3, ETOH4 #### [facility] [address] [place] [address] GFR/1.73 sq M.predicted among blacks MDRD (S/P/Bld) [Vol rate/Area] mL/min/{1.73_m2} Normal >60 [facility] Comment on above: Performed By: #### B MP3, PT/AP, HEMOG, TROPN, LACT3, ETOH4 #### [facility] [address] [place] [address] GFR/1.73 sq M.predicted among non-blacks MDRD (S/P/Bld) [Vol rate/Area] 89.0 mL/min/{1.73_m2} Normal >60 [facility] Comment on above: Result Comment: KDIG O guidelines provide the following GFR categories: Stage GFR(ml/min/1.73 m2) Terms G1 >=90 Normal or high G2 60-89 Mildly decreased* G3a 45-59 Mildly to moderately decreased G3b 30-44 Moderately to severely decreased G4 15-29 Severely decreased G5 <15 Kidney failure *Relative to young adult level. In the absence of evidence of kidney damage, neither GFR category G1 nor G2 fulfill the criteria for CKD. The CKD-EPI equation is validated in individuals 18 years of age and older. Currently the best equation for estimating glomerular filtration rate (GFR) from serum creatinine in children is the Bedside Fuchs equation. It is less accurate in patients with extremes of muscle mass, restriction of dietary protein, ingestion of creatine, extra-renal metabolism of creatinine, or treatment with medications that affect renal tubular creatinine secretion. Performed By: #### B MP3, PT/AP, HEMOG, TROPN, LACT3, ETOH4 #### [facility] [address] [place] [address] Glucose [Mass/Vol] 112 mg/dL High 70-100 [facility] Comment on above: Performed By: #### B MP3, PT/AP, HEMOG, TROPN, LACT3, ETOH4 #### [facility] [address] [place] [address] Urea nitrogen [Mass/Vol] 11 mg/dL Normal 9-20 [facility] Comment on above: Performed By: #### B MP3, PT/AP, HEMOG, TROPN, LACT3, ETOH4 #### [address] [place] [address] Potassium [Moles/Vol] 3.8 mmol/L Normal 3.5-5.1 [facility] Comment on above: Performed By: #### B MP3, PT/AP, HEMOG, TROPN, LACT3, ETOH4 #### [address] [place], [place] Sodium [Moles/Vol] 139 mmol/L Normal 135-145 [facility] Comment on above: Performed By: #### B MP3, PT/AP, HEMOG, TROPN, LACT3, ETOH4 #### [address] [place] [address] Chloride [Moles/Vol] 102 mmol/L Normal 98-107 [facility] Comment on above: Performed By: #### B MP3, PT/AP, HEMOG, TROPN, LACT3, ETOH4 #### [address] [place] [address] Basic Metabolic Panel w/ Ref nick to MGon 05-31-2022 Anion gap [Moles/Vol] 7 mmol/L 3 - 13 mmol/L [facility] Calcium [Mass/Vol] 8.7 mg/dL 8.4 - 10. 4 mg/dL [facility] Chloride [Moles/Vol] 102 mmol/L 98 - 10 7 mmol/L [facility] CO2 [Moles/Vol] 29 mmol/L 22 - 30 mmol/L [facility] Creatinine [Mass/Vol] 0.63 mg/dL 0.52 - 1.25 mg/dL [facility] eGFR mL/min 60 - P INF mL/min [facility] EGFR IF NonAfrican Hungarian 89.0 mL/min 60 - PINF mL/min [facility] Comment on above: KDIGO guidelines pro vide the following GFR categories: Stage GFR(ml/min/1.73 m2) Terms G1 >=90 Normal or high G2 60-89 Mildly decreased* G3a 45-59 Mildly to moderately decreased G3b 30-44 Moderately to severely decreased G4 15-29 Severely decreased G5 <15 Kidney failure *Relative to young adult level. In the absence of evidence of kidney damage, neither GFR category G1 nor G2 fulfill the criteria for CKD. The CKD-EPI equation is validated in individuals 18 years of age and older. Currently the best equation for estimating glomerular filtration rate (GFR) from serum creatinine in children is the Bedside Fuchs equation. It is less accurate in patients with extremes of muscle mass, restriction of dietary protein, ingestion of creatine, extra-renal metabolism of creatinine, or treatment with medications that affect renal tubular creatinine secretion. Glucose [Mass/Vol] 112 mg/dL High 70 - 100 mg/dL [facility] Interpretation and review of laboratory results Abnormal [facility] Potassium [Moles/Vol] 3.8 mmol/L 3.5 - 5.1 mmol/L [facility] Sodium [Moles/Vol] 139 mmol/L 135 - 145 mmol/L [facility] Urea nitrogen (BldV) [Mass/Vol] 11 mg/dL 9 - 20 mg/dL [facility] Test Performed by [id number] [place] [address] LAB [facility] CBC with Auto Differentialon 05-31-2022 Absolute Baso # 0.0 10*3/uL 0.0 - 0.2 10*3/uL [facility] Absolute Neut # 9.3 10*3/uL High 1.8 - 7.0 10*3/uL [facility] Basophils/100 WBC (Bld) 0.4 % 0.0 - 2.0 % [facility] Eosinophils (Bld) [#/Vol] 0.3 10*3/uL 0.0 - 0.5 10*3/uL [facility] Eosinophils/100 WBC (Bld) 2.3 % 1.0 - 6.0 % [facility] Granulocytes/100 WBC (Bld) 79.6 % 40.0 - 80.0 % [facility] Hematocrit (Bld) [Volume fraction] 33.6 % Low 35.0 - 47.0 % [facility] Hemoglobin (Bld) [Mass/Vol] 10.9 g/dL Low 11.7 - 16.0 g/dL [facility] Interpretation and review of laboratory results Abnormal [facility] Lymphocytes (Bld) [#/Vol] 1.3 10*3/uL 1.0 - 4.3 10*3/uL [facility] Lymphocytes/100 WBC (Bld) 11.2 % Low 20.0 - 40.0 % [facility] MCH (RBC) [Entitic mass] 27.8 pg 26.0 - 34.0 pg [facility] MCHC (RBC) [Mass/Vol] 32.4 % 32.0 - 36.0 % [facility] MCV (RBC) [Entitic vol] 85.7 fL 79.0 - 98.0 fL [facility] Monocytes (Bld) [#/Vol] 0.8 10*3/uL 0.0 - 0.8 10*3/uL [facility] Monocytes/100 WBC (Bld) 6.5 % 2.0 - 10.0 % [facility] Platelet distribution width (Bld) [Ratio] 15.4 % High 11.5 - 14.5 % [facility] Platelet mean volume (Bld) [Entitic vol] 7.9 fL 7.4 - 12.4 fL [facility] Comment on above: MPV is a calculated measurement using platelet volume ratio. Platelets (Bld) [#/Vol] 253 10*3/uL 140 - 440 10*3/uL [facility] RBC (Bld) [#/Vol] 3.93 10*6/uL 3.80 - 5.2 0 10*6/uL [facility] WBC (Bld) [#/Vol] 11.7 10*3/uL High 3.6 - 10.7 10*3/uL [facility] Test Performed by [facility], [address] [place] [id number] [place] [address] CR Pelvis 1 or 2 Viewson CR Pelvis 1 or 2 Views [facility]: [id number]iology ACCESSION EXAM DATE/TIME PROCEDURE ORDERING PROVIDER [id number] 05/31/2022 20:59 EDT CR Pelvis 1 or 2 Views [id number] -GILLIAN SYKES CPT code 16482 Reason For Exam (CR Pelvis 1 or 2 Views) Low AP pelvis s/p L hip blanca, please include entire implant Report AP PELVIS CLINICAL INDICATION: Status post left hip arthroplasty A single AP view of the pelvis was obtained. COMPARISON: 05/30/2022. FINDINGS: There has been placement of a left hip hemiarthroplasty. No fracture, dislocation, or loosening of the arthroplasty is identified. Scattered gas within soft tissues lateral to the left hip is consistent with recent surgery. No fracture of the visualized portion of the bony pelvis is seen. There are mild degenerative changes of the right hip. IMPRESSION: Normal appearance of the patient's newly placed left hip hemiarthroplasty. Report Dictated on Final Dictated: 05/31/2022 8:53 pm Dictating Physician: MD RUBIN JONATHAN R Signed Date and Time: 05/31/2022 8:54 pm Signed by: MD RUBIN JONATHAN R Transcribed Date and Time: 05/31/2022 8:53 Normal [facility] Hemogram w/ Autodiffon 05-31 Abs Baso Cnt 0.0 10*3/uL Normal 0.0-0.2 [facility] Comment on above: Performed By: #### B MP3, PT/AP, HEMOG, TROPN, LACT3, ETOH4 #### [address] [address] Abs Neutrophile Cnt 9.3 10*3/uL High 1.8-7.0 [facility] Comment on above: Performed By: #### B MP3, PT/AP, HEMOG, TROPN, LACT3, ETOH4 #### [address] [address] Basophils/100 WBC (Bld) 0.4 % Normal 0.0-2.0 [facility] Comment on above: Performed By: #### B MP3, PT/AP, HEMOG, TROPN, LACT3, ETOH4 #### [address] [address] Eosinophils (Bld) [#/Vol] 0.3 10*3/uL Normal 0.0-0.5 [facility] Comment on above: Performed By: #### B MP3, PT/AP, HEMOG, TROPN, LACT3, ETOH4 #### [address] [address] Eosinophils/100 WBC (Bld) 2.3 % Normal 1.0-6.0 [facility] Comment on above: Performed By: #### B MP3, PT/AP, HEMOG, TROPN, LACT3, ETOH4 #### [address] [address] [place], [place] Erythrocyte distribution width (RBC) [Ratio] 15.4 % High 11.5-14.5 [facility] Comment on above: Performed By: #### B MP3, PT/AP, HEMOG, TROPN, LACT3, ETOH4 #### [address] [address] [place], [place] Granulocytes/100 WBC (Bld) 79.6 % Normal 40.0-80.0 [facility] Comment on above: Performed By: #### B MP3, PT/AP, HEMOG, TROPN, LACT3, ETOH4 #### [address] Hematocrit (Bld) [Volume fraction] 33.6 % Low 35.0-47.0 [facility] Comment on above: Performed By: #### B MP3, PT/AP, HEMOG, TROPN, LACT3, ETOH4 #### [address] [address] [place], [place] Hemoglobin (Bld) [Mass/Vol] 10.9 g/dL Low 11.7-16.0 [facility] Comment on above: Performed By: #### B MP3, PT/AP, HEMOG, TROPN, LACT3, ETOH4 #### [address] Lymphocytes (Bld) [#/Vol] 1.3 10*3/uL Normal 1.0-4.3 [facility] Comment on above: Performed By: #### B MP3, PT/AP, HEMOG, TROPN, LACT3, ETOH4 #### [address] Lymphocytes/100 WBC (Bld) 11.2 % Low 20.0-40.0 [facility] Comment on above: Performed By: #### B MP3, PT/AP, HEMOG, TROPN, LACT3, ETOH4 #### [facility] [address] [place], [place] MCH (RBC) [Entitic mass] 27.8 pg Normal 26.0-34.0 [facility] Comment on above: Performed By: #### B MP3, PT/AP, HEMOG, TROPN, LACT3, ETOH4 #### [address] [place], [place] MCHC 32.4 % Normal 32.0-36.0 [facility] Comment on above: Performed By: #### B MP3, PT/AP, HEMOG, TROPN, LACT3, ETOH4 #### [address] MCV (RBC) [Entitic vol] 85.7 fL Normal 79.0-98.0 [facility] Comment on above: Performed By: #### B MP3, PT/AP, HEMOG, TROPN, LACT3, ETOH4 #### [address] [place], [place] Monocytes (Bld) [#/Vol] 0.8 10*3/uL Normal 0.0-0.8 [facility] Comment on above: Performed By: #### B MP3, PT/AP, HEMOG, TROPN, LACT3, ETOH4 #### [address] [address] [place], [place] Monocytes/100 WBC (Bld) 6.5 % Normal 2.0-10.0 [facility] Comment on above: Performed By: #### B MP3, PT/AP, HEMOG, TROPN, LACT3, ETOH4 #### [address] Platelet mean volume (Bld) [Entitic vol] 7.9 fL Normal 7.4-12.4 [facility] Comment on above: Result Comment: MPV is a calculated measurement using platelet volume ratio. Performed By: #### B MP3, PT/AP, HEMOG, TROPN, LACT3, ETOH4 #### [address] Platelets (Bld) [#/Vol] 253 10*3/uL Normal 140-440 [facility] Comment on above: Performed By: #### B MP3, PT/AP, HEMOG, TROPN, LACT3, ETOH4 #### [address] RBC (Bld) [#/Vol] 3.93 10*6/uL Normal 3.80-5.20 [facility] Comment on above: Performed By: #### B MP3, PT/AP, HEMOG, TROPN, LACT3, ETOH4 #### [facility] [address] [place], [place] WBC (Bld) [#/Vol] 11.7 10*3/uL High 3.6-10.7 [facility] Comment on above: Performed By: #### B MP3, PT/AP, HEMOG, TROPN, LACT3, ETOH4 #### [address] Op Noteon 05-31-2022 Op Note Operative Note Patient: Andre Blanca Date of : 1950 Pre-operative Diagnosis: Left femoral neck fracture Post-operative Diagnosis: Same Procedure: Left femoral endoprosthetic replacement Approach: Posterior Components used: [employer] Synergy femoral stem Anesthesia: General Surgeon: Saloni Assistants: Burton Sykes Estimated Blood Loss: Less than 100 ml Complications: None Specimens: No Medications: Ancef 2 g IV preoperatively, TXA 1 g IV prior to incision Operative findings: A subcapital femoral neck fracture was found. A posterior approach to the hip was used. The posterior hip capsule and the short external rotators were repaired after placement of the above mentioned implant. The hip was stable during intra-operative testing. History of present illness: Andre is a 71 y.o. female who was admitted after injuring the Left hip in a fall from standing and was unable to bear weight on the Left lower extremity. she was found to have a displaced femoral neck fracture. Andre was then cleared medically for the above mentioned procedure. Operative report: I met with Andre in the preoperative area prior to the procedure and discussed the surgical plan once again and answered all of her questions related to the procedure and the expected post-operative course. The risks of surgery were discussed including but not limited to the risks of medications given for surgery, the risk of blood loss during and after surgery that can lead to the need for blood products in certain situations, infection, damage to normal structures that can lead to mcfp problems of pain or dysfunction, wound healing complications, the possibility of implant loosening or failure, the possibility of hip joint instability, and the possible need for revision surgery. In addition potentially life threatening complications at the time of surgery and after surgery were discussed including but not limited to deep vein thrombosis, pulmonary embolism, myocardial infarction, stroke and . I then marked the Left lower extremity to confirm the correct surgical side. Andre was then taken to the operating room. Once in the operating room a general anesthetic was given by the anesthesia staff and a endotracheal tube was placed. At all times during the operative procedure the patient's head neck and airway were protected by the anesthesia staff. Andre was then transferred to the operating room table in the supine position. Once centered on the operating room table on the beanbag she was then lifted into a lateral decubitus position with the Left being up. An axillary roll was placed under the contralateral axilla. Care was taken to identify and pad all bony prominences. A well padded Jefferson stand was utilized to pad the Left upper extremity. The Left hip was then prepped and draped in the usual sterile orthopedic fashion. A surgical timeout was then performed with the patient's identification, the procedure to be performed being reviewed with the consent form, verification that the patient had received preoperative antibiotics, and verification of the correct surgical side. Everyone in the operating room stopped what they were doing in order to participate in the timeout. This timeout was performed by myself, the circulating room nurse and the anesthesia staff. The patient's ASA was verified by the nurse enrichment specialist and the anesthesia staff. Fire risk was assessed. A curvilinear incision was then made starting just over the greater trochanter and extending in a posterior direction with a smooth curve towards the posterior superior iliac spine. The skin and subcutaneous tissues were divided with care taken to cauterize any crossing vessels. The incision was deepened down the level of the tensor fascia. The tensor fascia and a short portion of the iliotibial band were split longitudinally. Palpation was performed at this point to identify the sciatic nerve posteriorly and a Charnley retractor was placed with care taken to avoid catching the nerve underneath the retractor. The nerve was palpated after retractor placement and found to be free of any impingement. The trochanteric bursa was identified and excised. The posterior edge of the gluteus medius was visualized and a [place] retractor was placed underneath this muscle belly. Retraction of the gluteus medius allowed for direct visualization of the gluteus minimus and the piriformis tendon. The Bovie was then utilized to create a plane between the piriformis and the gluteus minimus entering the joint capsule but avoiding injury to the labrum. This split was carried down to the level of the piriformis fossa and the piriformis tendon and the short external rotators were removed from their insertion site on the piriformis fossa with internal rotation of the hip being performed during this dissection. A tag stitch was placed within (more content not included)... Normal [facility] XR FOOT LEFT (MIN 3 VIEWS)on 05-31-2022 Patient Name: ANDRE BLANCA Diagnostic Radiology ACCESSION EXAM DATE/TIME PROCEDURE ORDERING PROVIDER [id number] 05/31/2022 23:52 EDT CR Foot Complete 3+ [id number] -RUBÉNKY, Views Left JCE CPT code 76329 Reason For Exam (CR Foot Complete 3+ Views Left) toe bruising Report LEFT FOOT 3 VIEWS CLINICAL INDICATION: toe bruising TECHNIQUE: 3 views of the left foot. COMPARISON: None. FINDINGS: Diffuse osteopenia. Slight cortical irregularity in the distal lateral aspect of little toe proximal phalanx. Probable old fracture deformity in great toe metatarsal. No dislocation. Degenerative change in the great toe MTP joint and less severe degenerative change scattered in the other IP joints. Soft tissues grossly unremarkable. IMPRESSION: 1. Findings suspicious for small and nondisplaced fracture in the distal aspect of little toe proximal phalanx. Correlate clinically. 2. Degenerative change. Report Dictated on --- Final --- Dictated: 05/31/2022 11:51 pm Dictating Physician: MD OCHOA WENDELL Signed Date and Time: 05/31/2022 11:54 pm Signed by: MD OCHOA WENDELL Transcribed Date and Time: 05/31/2022 11:51 [facility] Luis Ochoa MD - 05/31/2022 Patient Name: ANDRE BLANCA Diagnostic Radiology ACCESSION EXAM DATE/TIME PROCEDURE ORDERING PROVIDER [id number] 05/31/2022 23:52 EDT CR Foot Complete 3+ [id number] -BROSCHINSKY, Views Left KORAnn MarieNIBetty CPT code 58785 Reason For Exam (CR Foot Complete 3+ Views Left) toe bruising Report LEFT FOOT 3 VIEWS CLINICAL INDICATION: toe bruising TECHNIQUE: 3 views of the left foot. COMPARISON: None. FINDINGS: Diffuse osteopenia. Slight cortical irregularity in the distal lateral aspect of little toe proximal phalanx. Probable old fracture deformity in great toe metatarsal. No dislocation. Degenerative change in the great toe MTP joint and less severe degenerative change scattered in the other IP joints. Soft tissues grossly unremarkable. IMPRESSION: 1. Findings suspicious for small and nondisplaced fracture in the distal aspect of little toe proximal phalanx. Correlate clinically. 2. Degenerative change. Report Dictated on --- Final --- Dictated: 05/31/2022 11:51 pm Dictating Physician: MD OCHOA WENDELL Signed Date and Time: 05/31/2022 11:54 pm Signed by: MD OCHOA WENDELL Transcribed Date and Time: 05/31/2022 11:51 [facility] Work Phone: [facility] Work Phone: Radiology Study observation (narrative) [facility] Work Phone: XR PELVIS (1-2 VW)on Patient Name: ANDRE BLANCA Diagnostic Radiology ACCESSION EXAM DATE/TIME PROCEDURE ORDERING PROVIDER [id number] 05/31/2022 20:59 EDT CR Pelvis 1 or 2 Views [id number] -GILLIAN SYKES CPT code 45188 Reason For Exam (CR Pelvis 1 or 2 Views) Low AP pelvis s/p L hip blanca, please include entire implant Report AP PELVIS CLINICAL INDICATION: Status post left hip arthroplasty A single AP view of the pelvis was obtained. COMPARISON: 05/30/2022. FINDINGS: There has been placement of a left hip hemiarthroplasty. No fracture, dislocation, or loosening of the arthroplasty is identified. Scattered gas within soft tissues lateral to the left hip is consistent with recent surgery. No fracture of the visualized portion of the bony pelvis is seen. There are mild degenerative changes of the right hip. IMPRESSION: Normal appearance of the patient's newly placed left hip hemiarthroplasty. Report Dictated on --- Final --- Dictated: 05/31/2022 8:53 pm Dictating Physician: MD RUBIN JONATHAN R Signed Date and Time: 05/31/2022 8:54 pm Signed by: MD RUBIN JONATHAN R Transcribed Date and Time: 05/31/2022 8:53 [facility] Troy Rubin MD - 05/31/2022 Patient Name: ANDRE BLANCA Diagnostic Radiology ACCESSION EXAM DATE/TIME PROCEDURE ORDERING PROVIDER [id number] 05/31/2022 20:59 EDT CR Pelvis 1 or 2 Views [id number] -GILLIAN SYKES CPT code 86281 Reason For Exam (CR Pelvis 1 or 2 Views) Low AP pelvis s/p L hip blanca, please include entire implant Report AP PELVIS CLINICAL INDICATION: Status post left hip arthroplasty A single AP view of the pelvis was obtained. COMPARISON: 05/30/2022. FINDINGS: There has been placement of a left hip hemiarthroplasty. No fracture, dislocation, or loosening of the arthroplasty is identified. Scattered gas within soft tissues lateral to the left hip is consistent with recent surgery. No fracture of the visualized portion of the bony pelvis is seen. There are mild degenerative changes of the right hip. IMPRESSION: Normal appearance of the patient's newly placed left hip hemiarthroplasty. Report Dictated on --- Final --- Dictated: 05/31/2022 8:53 pm Dictating Physician: MD RUBIN JONATHAN R Signed Date and Time: 05/31/2022 8:54 pm Signed by: MD RUBIN JONATHAN R Transcribed Date and Time: 05/31/2022 8:53 [facility] Work Phone: Radiology Study observation (narrative) [facility] Work Phone: XR PELVIS (1-2 VW)Ordered By : Troy Rubin on 05-31-2022 [facility] Work Phone: Basic Metabolic Panelon 05-14 Anion gap [Moles/Vol] 5 mmol/L Normal 3-13 [facility] Comment on above: Performed By: #### B MP3, PT/AP, HEMOG, TROPN, LACT3, ETOH4 #### [address] [address] [place], [place] Calcium [Mass/Vol] 8.8 mg/dL Normal 8.4-10.4 [facility] Comment on above: Performed By: #### B MP3, PT/AP, HEMOG, TROPN, LACT3, ETOH4 #### [address] [address] [place], [place] CO2 [Moles/Vol] 33 mmol/L High 22-30 [facility] Comment on above: Performed By: #### B MP3, PT/AP, HEMOG, TROPN, LACT3, ETOH4 #### [address] [address] [place], [place] Glucose [Mass/Vol] 149 mg/dL High 70-100 [facility] Comment on above: Performed By: #### B MP3, PT/AP, HEMOG, TROPN, LACT3, ETOH4 #### [address] [address] [place], [place] Urea nitrogen [Mass/Vol] 9 mg/dL Normal 9-20 [facility] Comment on above: Performed By: #### B MP3, PT/AP, HEMOG, TROPN, LACT3, ETOH4 #### [address] Creatinine [Mass/Vol] 0.76 mg/dL Normal 0.52-1.25 [facility] Comment on above: Performed By: #### B MP3, PT/AP, HEMOG, TROPN, LACT3, ETOH4 #### [facility] [address] [place] [address] GFR/1.73 sq M.predicted among blacks MDRD (S/P/Bld) [Vol rate/Area] mL/min/{1.73_m2} Normal >60 [facility] Comment on above: Performed By: #### B MP3, PT/AP, HEMOG, TROPN, LACT3, ETOH4 #### [facility] [address] [place] [address] GFR/1.73 sq M.predicted among non-blacks MDRD (S/P/Bld) [Vol rate/Area] 77.9 mL/min/{1.73_m2} Normal >60 [facility] Comment on above: Result Comment: KDIG O guidelines provide the following GFR categories: Stage GFR(ml/min/1.73 m2) Terms G1 >=90 Normal or high G2 60-89 Mildly decreased* G3a 45-59 Mildly to moderately decreased G3b 30-44 Moderately to severely decreased G4 15-29 Severely decreased G5 <15 Kidney failure *Relative to young adult level. In the absence of evidence of kidney damage, neither GFR category G1 nor G2 fulfill the criteria for CKD. The CKD-EPI equation is validated in individuals 18 years of age and older. Currently the best equation for estimating glomerular filtration rate (GFR) from serum creatinine in children is the Bedside Fuchs equation. It is less accurate in patients with extremes of muscle mass, restriction of dietary protein, ingestion of creatine, extra-renal metabolism of creatinine, or treatment with medications that affect renal tubular creatinine secretion. Performed By: #### B MP3, PT/AP, HEMOG, TROPN, LACT3, ETOH4 #### [facility] [address] [place] [address] Potassium [Moles/Vol] 3.6 mmol/L Normal 3.5-5.1 [facility] Comment on above: Performed By: #### B MP3, PT/AP, HEMOG, TROPN, LACT3, ETOH4 #### [facility] [address] [place] [address] Sodium [Moles/Vol] 141 mmol/L Normal 135-145 [facility] Comment on above: Performed By: #### B MP3, PT/AP, HEMOG, TROPN, LACT3, ETOH4 #### [facility] [address] [place] [address] Chloride [Moles/Vol] 103 mmol/L Normal 98-107 [facility] Comment on above: Performed By: #### B MP3, PT/AP, HEMOG, TROPN, LACT3, ETOH4 #### [facility] [address] [place] [address] Anion gap [Moles/Vol] 5 mmol/L 3 - 13 mmol/L [facility] Calcium [Mass/Vol] 8.8 mg/dL 8.4 - 10. 4 mg/dL [facility] Chloride [Moles/Vol] 103 mmol/L 98 - 10 7 mmol/L [facility] CO2 [Moles/Vol] 33 mmol/L High 22 - 30 mmol/L [facility] Creatinine [Mass/Vol] 0.76 mg/dL 0.52 - 1.25 mg/dL [facility] eGFR mL/min 60 - P INF mL/min [facility] EGFR IF NonAfrican Hungarian 77.9 mL/min 60 - PINF mL/min [facility] Comment on above: KDIGO guidelines pro vide the following GFR categories: Stage GFR(ml/min/1.73 m2) Terms G1 >=90 Normal or high G2 60-89 Mildly decreased* G3a 45-59 Mildly to moderately decreased G3b 30-44 Moderately to severely decreased G4 15-29 Severely decreased G5 <15 Kidney failure *Relative to young adult level. In the absence of evidence of kidney damage, neither GFR category G1 nor G2 fulfill the criteria for CKD. The CKD-EPI equation is validated in individuals 18 years of age and older. Currently the best equation for estimating glomerular filtration rate (GFR) from serum creatinine in children is the Bedside Fuchs equation. It is less accurate in patients with extremes of muscle mass, restriction of dietary protein, ingestion of creatine, extra-renal metabolism of creatinine, or treatment with medications that affect renal tubular creatinine secretion. Glucose [Mass/Vol] 149 mg/dL High 70 - 100 mg/dL [facility] Interpretation and review of laboratory results Abnormal [facility] Potassium [Moles/Vol] 3.6 mmol/L 3.5 - 5.1 mmol/L [facility] Sodium [Moles/Vol] 141 mmol/L 135 - 145 mmol/L [facility] Urea nitrogen (BldV) [Mass/Vol] 9 mg/dL 9 - 20 mg/dL [facility] Hematocrit (Bld) [Volume fraction] 36.3 % 35.0 - 47.0 % [facility] Hemoglobin (Bld) [Mass/Vol] 11.6 g/dL Low 11.7 - 16.0 g/dL [facility] Interpretation and review of laboratory results Abnormal [facility] MCH (RBC) [Entitic mass] 27.1 pg 26.0 - 34.0 pg [facility] MCHC (RBC) [Mass/Vol] 31.8 % Low 32.0 - 36.0 % [facility] MCV (RBC) [Entitic vol] 85.2 fL 79.0 - 98.0 fL [facility] Platelet distribution width (Bld) [Ratio] 15.8 % High 11.5 - 14.5 % [facility] Platelet mean volume (Bld) [Entitic vol] 7.4 fL 7.4 - 12.4 fL [facility] Comment on above: MPV is a calculated measurement using platelet volume ratio. Platelets (Bld) [#/Vol] 246 10*3/uL 140 - 440 10*3/uL [facility] RBC (Bld) [#/Vol] 4.27 10*6/uL 3.80 - 5.2 0 10*6/uL [facility] WBC (Bld) [#/Vol] 8.2 10*3/uL 3.6 - 10.7 10*3/uL [facility] Test Performed by [id number] [place] [address] LAB [facility] Portableon 05-30-20 CR Chest Portable Patient Name: ANDRE BLANCA Diagnostic Radiology ACCESSION EXAM DATE/TIME PROCEDURE ORDERING PROVIDER [id number] 05/30/2022 10:36 EDT CR Chest Portable [id number] -LALIT PICHARDO CPT code 40780 Reason For Exam (CR Chest Portable) fall, left shoulder pain Report AP CHEST X-RAY CLINICAL INDICATION: fall, left shoulder pain TECHNIQUE: AP portable x-ray of the chest. COMPARISON: None FINDINGS: Heart/Mediastinum: Prominence of the superior mediastinum is most likely from rightward patient rotation. Heart size is within normal limits. Lungs: Low lung volumes. No definite airspace consolidation or pleural effusion. Bones: No displaced fractures. Degenerative endplate spurring is present throughout the mid and lower aspects of the thoracic spine. IMPRESSION: No evidence of an acute cardiopulmonary abnormality. Report Dictated on Final Dictated: 05/30/2022 10:29 am Dictating Physician: MD IGLESIAS THOMAS Signed Date and Time: 05/30/2022 10:31 am Signed by: MD IGLESIAS THOMAS Transcribed Date and Time: 05/30/2022 10:29 Normal [facility] CR Elbow 3+ Views Lefton CR Elbow 3+ Views Left Patient Name: ANDRE BLANCA Diagnostic Radiology ACCESSION EXAM DATE/TIME PROCEDURE ORDERING PROVIDER [id number] 05/30/2022 10:17 EDT CR Elbow 3+ Views Left [id number] -MARGARET CUEVAS CPT code 63754 Reason For Exam (CR Elbow 3+ Views Left) left elbow pain s/p fall Report LEFT ELBOW CLINICAL INDICATION: Pain after trauma left elbow pain s/p fall AP, lateral, and oblique plain film views of the left elbow were obtained. COMPARISON: None FINDINGS: There is an acute, mildly comminuted olecranon fracture of the humerus with mild proximal retraction of the major olecranon fracture fragment. Radiocapitellar alignment is maintained. Soft tissue swelling is present overlying the fracture. No fracture of the distal humerus or proximal radius is identified. IMPRESSION: Mildly displaced and mildly comminuted acute olecranon fracture. Report Dictated on Final Dictated: 05/30/2022 10:22 am Dictating Physician: MD IGLESIAS THOMAS Signed Date and Time: 05/30/2022 10:24 am Signed by: MD IGLESIAS THOMAS Transcribed Date and Time: 05/30/2022 10:22 [facility] CR Femur 2+ Views Lefton CR Femur 2+ Views Left Patient Name: ANDRE BLANCA Diagnostic Radiology ACCESSION EXAM DATE/TIME PROCEDURE ORDERING PROVIDER [id number] 05/30/2022 10:17 EDT CR Femur 2+ Views Left n [id number] -MARGARET CUEVAS CPT code 84780 Reason For Exam (CR Femur 2+ Views Left n) left leg pain s/p fall Report LEFT FEMUR PELVIS CLINICAL INDICATION: Pain left leg pain s/p fall AP and lateral plain film views of the left femur were obtained. AP radiograph the pelvis. COMPARISON: None FINDINGS: There is an acute transcervical fracture of the left femoral neck with mild anterior angulation of the fracture apex. No other acute fractures of the left femur or pelvis are identified. IMPRESSION: Acute left femoral neck fracture. Report Dictated on Final Dictated: 05/30/2022 10:24 am Dictating Physician: MD IGLESIAS THOMAS Signed Date and Time: 05/30/2022 10:28 am Signed by: MD IGLESIAS THOMAS Transcribed Date and Time: 05/30/2022 10:24 [facility] CR Pelvis 1 or 2 Viewson CR Pelvis 1 or 2 Views Patient Name: ANDRE BLANCA Diagnostic Radiology ACCESSION EXAM DATE/TIME PROCEDURE ORDERING PROVIDER [id number] 05/30/2022 10:36 EDT CR Pelvis 1 or 2 Views [id number] -LALIT PICHARDO CPT code 08260 Reason For Exam (CR Pelvis 1 or 2 Views) fall, left hip pain Report LEFT FEMUR PELVIS CLINICAL INDICATION: Pain left leg pain s/p fall AP and lateral plain film views of the left femur were obtained. AP radiograph the pelvis. COMPARISON: None FINDINGS: There is an acute transcervical fracture of the left femoral neck with mild anterior angulation of the fracture apex. No other acute fractures of the left femur or pelvis are identified. IMPRESSION: Acute left femoral neck fracture. Report Dictated on Final Dictated: 05/30/2022 10:24 am Dictating Physician: MD IGLESIAS THOMAS Signed Date and Time: 05/30/2022 10:28 am Signed by: MD IGLESIAS THOMAS Transcribed Date and Time: 05/30/2022 10:24 [facility] CR Shoulder 2+ Views Lefton 05-30-2022 CR Shoulder 2+ Views Left Patient Name: ANDRE BLANCA Diagnostic Radiology ACCESSION EXAM DATE/TIME PROCEDURE ORDERING PROVIDER [id number] 05/30/2022 10:17 EDT CR Shoulder 2+ Views [id number] -MARGARET CUEVAS Left CPT code 13425 Reason For Exam (CR Shoulder 2+ Views Left) fall, left shoulder pain Report EXAMINATION: CR Shoulder 2+ Views Left CLINICAL HISTORY: fall, left shoulder pain COMPARISON: None TECHNIQUE: Grashey, axillary, and transscapular views of the left shoulder FINDINGS: The patient is status post 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 There is mild heterotopic ossification adjacent to the glenoid prosthesis. The acromioclavicular joint is intact. No left rib fractures are identified. No osseous lesions are seen. IMPRESSION: 1. No periprosthetic fracture of the left shoulder. Report Dictated on Final Dictated: 05/30/2022 10:28 am Dictating Physician: MD IGLESIAS THOMAS Signed Date and Time: 05/30/2022 10:29 am Signed by: MD IGLESIAS THOMAS Transcribed Date and Time: 05/30/2022 10:28 [facility] CR Tibia/Fibula 2 Views Bileliana santa 05-30-2022 CR Tibia/Fibula 2 Views Bilateral Patient Name: ANDRE BLANCA Diagnostic Radiology ACCESSION EXAM DATE/TIME PROCEDURE ORDERING PROVIDER [id number] 05/30/2022 19:27 EDT CR Tibia/Fibula 2 Views MD RUTH BLAKE Bilateral CPT code 01976 Reason For Exam (CR Tibia/Fibula 2 Views Bilateral) Bilateral leg pain Report EXAMINATION: Bilateral tibia and fibula CLINICAL INDICATION: Bilateral leg pain TECHNIQUE: AP and lateral radiographs of the bilateral tibia/fibula COMPARISON: None FINDINGS: No fracture or dislocation. Degenerative changes are present in the bilateral knees, greater on the right. No soft tissue swelling. Report Dictated on Final Dictated: 05/30/2022 7:12 pm Dictating Physician: MD HICKS NICHOLAS Signed Date and Time: 05/30/2022 7:15 pm Signed by: MD HICKS NICHOLAS Transcribed Date and Time: 05/30/2022 7:12 [facility] CT CERVICAL SPINE WO CONTRAS Ton 05-30-2022 Patient Name: ANDRE BLANCA Computed Tomography ACCESSION EXAM DATE/TIME PROCEDURE ORDERING PROVIDER [id number] 05/30/2022 09:[address] Spine Cervical w/o [id number] -CRANKSHAW, CAYLA Contrast CPT code 13291 Reason For Exam (CT Spine Cervical w/o Contrast) trauma Report CT CERVICAL SPINE WITHOUT CONTRAST: INDICATION: Neck pain after trauma COMPARISON: None. Axial scans of the cervical spine performed from the skull base to the thoracic inlet, with sagittal and coronal reconstructions. On the sagittal reconstruction images, the anatomic alignment of the vertebral bodies is normal. There is no evidence of fracture or subluxation in the cervical spine. Disc space narrowing and marginal spurring is noted at C6-C7 with mild bilateral foraminal encroachment. The prevertebral soft-tissues are normal. The craniocervical junction and C1-2 junction appear normal. The odontoid is intact. IMPRESSION: Arthritic changes. No acute process. Report Dictated on --- Final --- Dictated: 05/30/2022 10:58 am Dictating Physician: DO MCGUIRE ALFRED Signed Date and Time: 05/30/2022 11:00 am Signed by: DO MCGUIRE ALFRED Transcribed Date and Time: 05/30/2022 10:58 [facility] Aidan Mcguire DO - 05/30/2022 Patient Name: ANDRE BLANCA Computed Tomography ACCESSION EXAM DATE/TIME PROCEDURE ORDERING PROVIDER [id number] 05/30/2022 09:[address] Spine Cervical w/o [id number] -CRANKSHAW, CAYLA Contrast CPT code 93251 Reason For Exam (CT Spine Cervical w/o Contrast) trauma Report CT CERVICAL SPINE WITHOUT CONTRAST: INDICATION: Neck pain after trauma COMPARISON: None. Axial scans of the cervical spine performed from the skull base to the thoracic inlet, with sagittal and coronal reconstructions. On the sagittal reconstruction images, the anatomic alignment of the vertebral bodies is normal. There is no evidence of fracture or subluxation in the cervical spine. Disc space narrowing and marginal spurring is noted at C6-C7 with mild bilateral foraminal encroachment. The prevertebral soft-tissues are normal. The craniocervical junction and C1-2 junction appear normal. The odontoid is intact. IMPRESSION: Arthritic changes. No acute process. Report Dictated on --- Final --- Dictated: 05/30/2022 10:58 am Dictating Physician: DO MCGUIRE ALFRED Signed Date and Time: 05/30/2022 11:00 am Signed by: DO MCGUIRE ALFRED Transcribed Date and Time: 05/30/2022 10:58 [facility] Work Phone: [facility] Work Phone: CT HEAD WO CONTRASTon 2021 [id number] ACCESSION EXAM DATE/TIME PROCEDURE ORDERING PROVIDER [id number] 05/30/2022 09:[address] Head or Brain w/o [id number] -CAYLA MADRIGAL Contrast CPT code 22227 Reason For Exam (CT Head or Brain w/o Contrast) trauma Report CT HEAD WITHOUT CONTRAST: INDICATION: Cough COMPARISON: None. Unenhanced CT images of the head from skull base to vertex were obtained. The images are reviewed in the axial, sagittal and coronal planes. The ventricles and sulci are enlarged, consistent with atrophy. Focal and confluent areas of low-attenuation are noted within the subcortical and periventricular white matter suggesting chronic ischemia. There is no evidence of hemorrhage, mass or large acute infarct. A remote lacunar infarct is seen on the left near the caudate nucleus head. Additional focal areas of low-attenuation are seen involving the dionisio. There is no mass or significant shift of the midline structures. There are no extraaxial or posterior fossa masses or fluid collections. The hypothalamic and parasellar regions are unremarkable. There is mild mucosal thickening of the right maxillary sinus. IMPRESSION: No acute intracranial process. Multifocal remote infarcts.. Report Dictated on --- Final --- Dictated: 05/30/2022 10:49 am Dictating Physician: DO MCGUIRE ALFRED Signed Date and Time: 05/30/2022 10:56 am Signed by: DO MCGUIRE ALFRED Transcribed Date and Time: 05/30/2022 10:49 [facility] - 05/30/2022 [id number] Computed Tomography ACCESSION EXAM DATE/TIME PROCEDURE ORDERING PROVIDER [id number] 05/30/2022 09:[address] Head or Brain w/o [id number] -CAYLA MADRIGAL Contrast CPT code 58475 Reason For Exam (CT Head or Brain w/o Contrast) trauma Report CT HEAD WITHOUT CONTRAST: INDICATION: Cough COMPARISON: None. Unenhanced CT images of the head from skull base to vertex were obtained. The images are reviewed in the axial, sagittal and coronal planes. The ventricles and sulci are enlarged, consistent with atrophy. Focal and confluent areas of low-attenuation are noted within the subcortical and periventricular white matter suggesting chronic ischemia. There is no evidence of hemorrhage, mass or large acute infarct. A remote lacunar infarct is seen on the left near the caudate nucleus head. Additional focal areas of low-attenuation are seen involving the dionisio. There is no mass or significant shift of the midline structures. There are no extraaxial or posterior fossa masses or fluid collections. The hypothalamic and parasellar regions are unremarkable. There is mild mucosal thickening of the right maxillary sinus. IMPRESSION: No acute intracranial process. Multifocal remote infarcts.. Report Dictated on --- Final --- Dictated: 05/30/2022 10:49 am Dictating Physician: DO MCGUIRE ALFRED Signed Date and Time: 05/30/2022 10:56 am Signed by: DO MCGUIRE ALFRED Transcribed Date and Time: 05/30/2022 10:49 [facility] Work Phone: CT HEAD WO CONTRASTOrdered B y: Aidan Mcguire on 05-30-2022 [facility] Work Phone: CT Head or Brain w/o Contras ton 05-30-2022 CT Head or Brain w/o Contrast Patient Name: ANDRE BLANCA Computed Tomography ACCESSION EXAM DATE/TIME PROCEDURE ORDERING PROVIDER [id number] 05/30/2022 16:[address] Head or Brain w/o [id number] -RADHA MOON Contrast CPT code 95203 Reason For Exam (CT Head or Brain w/o Contrast) fall on plavix Report CT BRAIN WITHOUT CONTRAST CLINICAL INDICATION: fall on plavix TECHNIQUE: CT scan of the brain without IV contrast. Multiplanar reformations. COMPARISON: Earlier on same date at 0945 hours. FINDINGS: No apparent mass or mass effect, hemorrhage, midline shift or hydrocephalus. No evidence of acute cortical infarct. No abnormal, extra-axial fluid or air collection. Patchy low density in the periventricular and subcortical white matter is nonspecific, but may relate to chronic small vessel ischemic change. Probable old lacunar infarct changes again noted in and left caudate nucleus head. Mild, diffuse volume loss. Osseous calvarium grossly intact. IMPRESSION: 1. No acute intracranial findings. 2. Probable chronic ischemic and atrophic changes. Report Dictated on Final Dictated: 05/30/2022 5:06 pm Dictating Physician: MD OCHOA WENDELL Signed Date and Time: 05/30/2022 5:10 pm Signed by: MD OCHOA WENDELL Transcribed Date and Time: 05/30/2022 5:06 [facility] CT Head or Brain w/o Contrast Patient Name: ANDRE BLANCA Computed Tomography ACCESSION EXAM DATE/TIME PROCEDURE ORDERING PROVIDER [id number] 05/30/2022 09:[address] Head or Brain w/o [id number] -ELICEO CAYLA Contrast CPT code 01548 Reason For Exam (CT Head or Brain w/o Contrast) trauma Report CT HEAD WITHOUT CONTRAST: INDICATION: Cough COMPARISON: None. Unenhanced CT images of the head from skull base to vertex were obtained. The images are reviewed in the axial, sagittal and coronal planes. The ventricles and sulci are enlarged, consistent with atrophy. Focal and confluent areas of low-attenuation are noted within the subcortical and periventricular white matter suggesting chronic ischemia. There is no evidence of hemorrhage, mass or large acute infarct. A remote lacunar infarct is seen on the left near the caudate nucleus head. Additional focal areas of low-attenuation are seen involving the dionisio. There is no mass or significant shift of the midline structures. There are no extraaxial or posterior fossa masses or fluid collections. The hypothalamic and parasellar regions are unremarkable. There is mild mucosal thickening of the right maxillary sinus. IMPRESSION: No acute intracranial process. Multifocal remote infarcts.. Report Dictated on Final Dictated: 05/30/2022 10:49 am Dictating Physician: DO MCGUIRE ALFRED Signed Date and Time: 05/30/2022 10:56 am Signed by: DO MCGUIRE ALFRED Transcribed Date and Time: 05/30/2022 10:[address] [facility] [address] Spine Cervical w/o Contra desi 05-30-2022 CT Spine Cervical w/o Contrast [facility]: [id number] Computed Tomography ACCESSION EXAM DATE/TIME PROCEDURE ORDERING PROVIDER [id number] 05/30/2022 09:[address] Spine Cervical w/o [id number] -CAYLA MADRIGAL Contrast CPT code 28442 Reason For Exam (CT Spine Cervical w/o Contrast) trauma Report CT CERVICAL SPINE WITHOUT CONTRAST: INDICATION: Neck pain after trauma COMPARISON: None. Axial scans of the cervical spine performed from the skull base to the thoracic inlet, with sagittal and coronal reconstructions. On the sagittal reconstruction images, the anatomic alignment of the vertebral bodies is normal. There is no evidence of fracture or subluxation in the cervical spine. Disc space narrowing and marginal spurring is noted at C6-C7 with mild bilateral foraminal encroachment. The prevertebral soft-tissues are normal. The craniocervical junction and C1-2 junction appear normal. The odontoid is intact. IMPRESSION: Arthritic changes. No acute process. Report Dictated on Final Dictated: 05/30/2022 10:58 am Dictating Physician: DO MCGUIRE ALFRED Signed Date and Time: 05/30/2022 11:00 am Signed by: DO MCGUIRE ALFRED Transcribed Date and Time: 05/30/2022 10:58 [facility] CT head without contraston 1 Patient Name: ANDRE BLANCA Computed Tomography ACCESSION EXAM DATE/TIME PROCEDURE ORDERING PROVIDER [id number] 05/30/2022 16:[address] Head or Brain w/o [id number] -RED, RADHA Contrast CPT code 64060 Reason For Exam (CT Head or Brain w/o Contrast) fall on plavix Report CT BRAIN WITHOUT CONTRAST CLINICAL INDICATION: fall on plavix TECHNIQUE: CT scan of the brain without IV contrast. Multiplanar reformations. COMPARISON: Earlier on same date at 0945 hours. FINDINGS: No apparent mass or mass effect, hemorrhage, midline shift or hydrocephalus. No evidence of acute cortical infarct. No abnormal, extra-axial fluid or air collection. Patchy low density in the periventricular and subcortical white matter is nonspecific, but may relate to chronic small vessel ischemic change. Probable old lacunar infarct changes again noted in and left caudate nucleus head. Mild, diffuse volume loss. Osseous calvarium grossly intact. IMPRESSION: 1. No acute intracranial findings. 2. Probable chronic ischemic and atrophic changes. Report Dictated on --- Final --- Dictated: 05/30/2022 5:06 pm Dictating Physician: MD OCHOA WENDELL Signed Date and Time: 05/30/2022 5:10 pm Signed by: MD OCHOA WENDELL Transcribed Date and Time: 05/30/2022 5:06 [facility] Luis Ochoa MD - 05/30/2022 Patient Name: ANDRE BLANCA Computed Tomography ACCESSION EXAM DATE/TIME PROCEDURE ORDERING PROVIDER [id number] 05/30/2022 16:[address] Head or Brain w/o [id number] -RED, RADHA Contrast CPT code 19751 Reason For Exam (CT Head or Brain w/o Contrast) fall on plavix Report CT BRAIN WITHOUT CONTRAST CLINICAL INDICATION: fall on plavix TECHNIQUE: CT scan of the brain without IV contrast. Multiplanar reformations. COMPARISON: Earlier on same date at 0945 hours. FINDINGS: No apparent mass or mass effect, hemorrhage, midline shift or hydrocephalus. No evidence of acute cortical infarct. No abnormal, extra-axial fluid or air collection. Patchy low density in the periventricular and subcortical white matter is nonspecific, but may relate to chronic small vessel ischemic change. Probable old lacunar infarct changes again noted in and left caudate nucleus head. Mild, diffuse volume loss. Osseous calvarium grossly intact. IMPRESSION: 1. No acute intracranial findings. 2. Probable chronic ischemic and atrophic changes. Report Dictated on --- Final --- Dictated: 05/30/2022 5:06 pm Dictating Physician: MD OCHOA WENDELL Signed Date and Time: 05/30/2022 5:10 pm Signed by: MD OCHAO WENDELL Transcribed Date and Time: 05/30/2022 5:06 [facility] Work Phone: CT head without contrastOrde red By: Luis Ochoa on 05-30-2022 [facility] Work Phone: ED Provider Noteon ED Provider Note [facility] DEPT EMERGENCY DEPARTMENT ENCOUNTER Pt Name: Andre Blanca Birthdate 1950 Date of evaluation: 05/30/2022 Provider: Lalit Pichardo DO CHIEF COMPLAINT Chief Complaint Patient presents with Fall Pt found down this am in facility brought in by EMS.. Team HISTORY OF PRESENT ILLNESS (Location/Symptom, Timing/Onset, Context/Setting, Quality, Duration, Modifying Factors, Severity) Note limiting factors. I wore a kn95 mask for the entirety of this encounter. HPI Andre Blanca is a 71 y.o. female who presents to the emergency department with a chief complaint of a syncopal fall. Patient presents from a nursing facility. She states that this morning she got up and shortly after ambulating "everything went black" she landed on her left side and is complaining of shoulder pain and hip pain. She is unsure if she struck her head. She takes Plavix. She does have a history of COPD and is on 3 L nasal cannula chronically. She states she has had episodes of syncope in the past. Nursing Notes were reviewed. REVIEW OF SYSTEMS (2+ for level 4; 10+ for level 5) Review of Systems Unable to perform ROS: Acuity of condition PAST MEDICAL HISTORY Past Medical History: Diagnosis Date Bipolar 1 disorder (HCC) Cerebral artery occlusion COPD (chronic obstructive pulmonary disease) (HCC) Depression DVT (deep venous thrombosis) (HCC) Fibromyalgia Hyperlipidemia Hypothyroid IBS (irritable bowel syndrome) MDD (major depressive disorder) RAULITO (obstructive sleep apnea) Syncope TIA (transient ischemic attack) SURGICAL HISTORY Past Surgical History: Procedure Laterality Date ARM SURGERY N/A CHOLECYSTECTOMY HYSTERECTOMY (CERVIX STATUS UNKNOWN) CURRENT MEDICATIONS Previous Medications No medications on file ALLERGIES Aspirin, Butorphanol, Hydrocodone, Hydromorphone, Ibuprofen, Oxycodone, Prochlorperazine, Salicylamide, Sulfa antibiotics, and Sumatriptan FAMILY HISTORY Family History Problem Relation Age of Onset Alcohol Abuse Mother Emphysema Father SOCIAL HISTORY Social History Socioeconomic History Marital status: Spouse name: None Number of children: None Years of education: None Highest education level: None SCREENINGS Kelley Coma Scale Eye Opening: Spontaneous Best Verbal Response: Oriented Best Motor Response: Obeys commands Kelley Coma Scale Score: 15 PHYSICAL EXAM (up to 7 for level 4, 8 or more for level 5) ED Triage Vitals BP Temp Temp src Pulse Resp SpO2 Height Weight -- -- -- -- -- -- -- -- Physical Exam Vitals reviewed. Constitutional: General: She is not in acute distress. Appearance: Normal appearance. She is well-developed. She is not diaphoretic. HENT: Head: Normocephalic and atraumatic. Right Ear: External ear normal. Left Ear: External ear normal. Nose: Nose normal. No rhinorrhea. Comments: No nasal septal hematoma Mouth/Throat: Comments: No signs of trauma to the oropharynx Midface stable No malocclusion Eyes: General: No scleral icterus. Right eye: No discharge. Left eye: No discharge. Pupils: Pupils are equal, round, and reactive to light. Neck: Thyroid: No thyromegaly. Vascular: No JVD. Trachea: No tracheal deviation. Comments: C-Collar in place C-spine non-tender, no palpable step-offs Cardiovascular: Rate and Rhythm: Normal rate and regular rhythm. Pulses: Normal pulses. Pulmonary: Effort: Pulmonary effort is normal. No respiratory distress. Breath sounds: No stridor. Chest: Chest wall: No tenderness. Abdominal: General: There is no distension. Palpations: Abdomen is soft. Tenderness: There is no abdominal tenderness. There is no guarding or rebound. Hernia: No hernia is present. Musculoskeletal: General: No tenderness or deformity. Normal range of motion. Cervical back: No rigidity. No muscular tenderness. Comments: T-Spine non-tender, no palpable step offs L-Spine non-tender, no palpable step offs Surgical scar to the left shoulder Tenderness to the left arm/shoulder with the left upper extremity held in abduction and flexion. Positive logroll to the left lower extremity with tenderness at the left hip. Skin: General: Skin is warm and dry. Neurological: General: No focal deficit present. Mental Status: She is alert and oriented to person, place, and time. Sensory: No sensory deficit. Motor: No weakness. Psychiatric: Mood and Affect: Mood normal. Behavior: Behavior normal. DIAGNOSTIC RESULTS EKG (Per Emergency Physician): Sinus rhythm with right bundle branch block RADIOLOGY (Per Emergency Physician): Initiated in conjunction with the trauma service. Interpretation per the Radiologist below, if available at the time of this note: XR ELBOW LEFT (MIN 3 VIEWS) Result Date: 05/30/2022 Patient Name: ANDRE BLANCA Diagnostic Radiology ACCESSION EXAM DATE/ (more content not included)... Normal [facility] ED Provider Note Emergency Department Encounter [facility] EMERGENCY DEPT Patient: Andre Blanca : 1950 Date of Evaluation: 05/30/2022 ED Supervising Physician: Kwesi Decker DO I independently examined and evaluated Andre Blanca. Focused exam: Appears well, in no acute distress, no scalp hematoma, no midline C-spine, T-spine, L-spine tenderness, tenderness present to the left shoulder, left upper extremity is neurovascularly intact. Brief ED course/MDM: I, Dr. Decker, am the chinchilla machine operator of record. I personally saw the patient and performed a substantive portion of the visit including all aspects of the medical decision making. Patient is a 71 y.o. female presenting to the emergency department with syncopal episode.The chart was reviewed for pertinent history relating to the chief complaint. The patient was evaluated at bedside. The patient appears well, no acute distress, vitals are stable, history consistent with true syncope. Appropriate evaluation adjuncts were ordered. All diagnostic, treatment, and disposition decisions were made by myself in conjunction with the Resident. I also supervised beck portions of any procedures performed by the Resident. For all further details of the patient's emergency department visit, please see their documentation. (Please note that portions of this note may have been completed with a voice recognition program. 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 : 1950 Requested By: KWESI DECKER Order Number: [id number] Reading MD: Kwesi Decker Measurements Intervals [place] Rate: 76 P: 70 NC: 202 QRS: 90 QRSD: 133 T: 34 QT: 405 QTc: 455 Interpretive Statements Sinus rhythm Right bundle branch block No previous EKG for comparison Electronically Signed On 05-30-2022 14:34:14 EDT by Kwesi Decker [facility] Result, Unknown Provider - 05/30/2022 [facility] Test Date: 2022-05-30 Pat Name: ANDRE BLANCA Department: 1AER Room: 6118 Gender: F 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: 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 : 1950 Requested By: KWESI DECKER Order Number: [id number] Reading : Kwesi Decker Measurements Intervals [place] Rate: 76 P: 70 NC: 202 QRS: 90 QRSD: 133 T: 34 QT: 405 QTc: 455 Interpretive Statements Sinus rhythm Right bundle branch block No previous EKG for comparison Electronically Signed On 05-30-2022 14:34:14 EDT by Kwesi Decker [facility] Work Phone: EKG 12 Lead - Chest PainOrde red By: Unknown Result on 05-30-2022 [facility] Ethanolon 05-30-2022 Ethanol Lvl <0.010 0.000 - 0.010 g/dL [facility] Comment on above: NOTE: This result is for medical treatment only. Analysis performed using non-forensic procedures. Ethanol Serum/Plasmaon 05-30 Ethanol-Serum/Plasma < 0.010 Normal 0.000-0.010 [facility] Comment on above: Result Comment: NOTE : This result is for medical treatment only. Analysis performed using non-forensic procedures. Performed By: #### B MP3, PT/AP, HEMOG, TROPN, LACT3, ETOH4 #### [address] Hemogramon 05-30-2022 Erythrocyte distribution width (RBC) [Ratio] 15.8 % High 11.5-14.5 [facility] Comment on above: Performed By: #### B MP3, PT/AP, HEMOG, TROPN, LACT3, ETOH4 #### [address] [address] [place], [place] Hematocrit (Bld) [Volume fraction] 36.3 % Normal 35.0-47.0 [facility] Comment on above: Performed By: #### B MP3, PT/AP, HEMOG, TROPN, LACT3, ETOH4 #### [address] Hemoglobin (Bld) [Mass/Vol] 11.6 g/dL Low 11.7-16.0 [facility] Comment on above: Performed By: #### B MP3, PT/AP, HEMOG, TROPN, LACT3, ETOH4 #### [address] MCH (RBC) [Entitic mass] 27.1 pg Normal 26.0-34.0 [facility] Comment on above: Performed By: #### B MP3, PT/AP, HEMOG, TROPN, LACT3, ETOH4 #### [address] MCHC 31.8 % Low 32.0-36.0 [facility] Comment on above: Performed By: #### B MP3, PT/AP, HEMOG, TROPN, LACT3, ETOH4 #### [address] [address] [place], [place] MCV (RBC) [Entitic vol] 85.2 fL Normal 79.0-98.0 [facility] Comment on above: Performed By: #### B MP3, PT/AP, HEMOG, TROPN, LACT3, ETOH4 #### [address] [address] [place], [place] Platelet mean volume (Bld) [Entitic vol] 7.4 fL Normal 7.4-12.4 [facility] Comment on above: Result Comment: MPV is a calculated measurement using platelet volume ratio. Performed By: #### B MP3, PT/AP, HEMOG, TROPN, LACT3, ETOH4 #### [address] [address] [place], [place] Platelets (Bld) [#/Vol] 246 10*3/uL Normal 140-440 [facility] Comment on above: Performed By: #### B MP3, PT/AP, HEMOG, TROPN, LACT3, ETOH4 #### [address] [address] [place], [place] RBC (Bld) [#/Vol] 4.27 10*6/uL Normal 3.80-5.20 [facility] Comment on above: Performed By: #### B MP3, PT/AP, HEMOG, TROPN, LACT3, ETOH4 #### [address] WBC (Bld) [#/Vol] 8.2 10*3/uL Normal 3.6-10.7 [facility] Comment on above: Performed By: #### B MP3, PT/AP, HEMOG, TROPN, LACT3, ETOH4 #### [address] [address] [place], [place] Lactic Acidon 05-30-2022 Lactate [Moles/Vol] 1.3 mmol/L Normal 0.7-2.0 [facility] Comment on above: Performed By: #### B MP3, PT/AP, HEMOG, TROPN, LACT3, ETOH4 #### [address] Lactate [Moles/Vol] 1.3 mmol/L 0.7 - 2. 0 mmol/L [facility] Test Performed by [id number] [place] [address] [facility] No Panel Informationon 05-30 Radiology Study observation (narrative) [facility] Work Phone: Test Performed by [address] Radiology Study observation (narrative) [facility] Work Phone: Protime AND APTTon aPTT Coag (Bld) [Time] 27.1 s Normal 20.0-30.5 [facility] Comment on above: Result Comment: NOTE : The therapeutic time for Heparin anticoagulation, based on Xa activity inhibition, is an APTT of 46-80 seconds. Performed By: #### B MP3, PT/AP, HEMOG, TROPN, LACT3, ETOH4 #### [address] INR 1.0 Normal 0.9-1.1 [facility] Comment on above: Result Comment: Que mmended Anticoagulant Therapy: SEE BELOW ----- INR of 2.0 - 3.0 : - Prophylaxis of Venous Thrombosis (high-risk surgery) - Treatment of Venous Thrombosis - Treatment of Pulmonary Embolism (Includes tissue heart valves, Acute Myocardial Infarction to prevent systemic embolism, Valvular Heart Disease, and Atrial Fibrillation) ----- INR of 2.5 - 3.5 : - Mechanical Prosthetic Valves (high risk) - If oral anticoagulant therapy is used to prevent Myocardial Infarction Performed By: #### B MP3, PT/AP, HEMOG, TROPN, LACT3, ETOH4 #### [address] PT Coag (PPP) [Time] 10.7 s Normal 9.0-12.0 [facility] Comment on above: Result Comment: . Performed By: #### B MP3, PT/AP, HEMOG, TROPN, LACT3, ETOH4 #### [address] [id number] Protime/INR & PTTon 05-30-20 aPTT Coag (Bld) [Time] 27.1 s 20.0 - 30.5 s [facility] Comment on above: NOTE: The therapeuti c time for Heparin anticoagulation, based on Xa activity inhibition, is an APTT of 46-80 seconds. INR Coag (Bld) [Relative time] 1.0 {INR} [facility] Comment on above: Recommended Anticoag ulant Therapy: SEE BELOW ----- INR of 2.0 - 3.0 : - Prophylaxis of Venous Thrombosis (high-risk surgery) - Treatment of Venous Thrombosis - Treatment of Pulmonary Embolism (Includes tissue heart valves, Acute Myocardial Infarction to prevent systemic embolism, Valvular Heart Disease, and Atrial Fibrillation) ----- INR of 2.5 - 3.5 : - Mechanical Prosthetic Valves (high risk) - If oral anticoagulant therapy is used to prevent Myocardial Infarction PT Coag (PPP) [Time] 10.7 s 9.0 - 12.0 s [facility] Comment on above: . Test Performed [address] TS GELon 05-30-2022 TS GEL ABO Group: O Rh, Gel: POS Antibody Screen Gel: NEG Normal [facility] Comment on above: Performed By: #### B MP3, PT/AP, HEMOG, TROPN, LACT3, ETOH4 #### [address] [id number] TYPE AND SCREENon 05-30-2022 ABO Grouping O [facility] Rh Type Positive [facility] Test Performed by [address] [address] [facility] Troponinon 05-30-2022 Troponin I.cardiac [Mass/Vol] ng/mL 0.000 - 0.034 ng/mL [facility] Comment on above: . Test Performed by [address] [place] [address] [facility] Troponin Ion 05-30-2022 Troponin I.cardiac [Mass/Vol] ng/mL Normal 0.000-0.034 [facility] Comment on above: Result Comment: . Performed By: #### B MP3, PT/AP, HEMOG, TROPN, LACT3, ETOH4 #### [address] [address] [place] [address] XR CHEST PORTABLEon 05-30-20 Patient Name: ANDRE BLANCA Diagnostic Radiology ACCESSION EXAM DATE/TIME PROCEDURE ORDERING PROVIDER [id number] 05/30/2022 10:36 EDT CR Chest Portable [id number] LYLE CPT code 81419 Reason For Exam (CR Chest Portable) fall, left shoulder pain Report AP CHEST X-RAY CLINICAL INDICATION: fall, left shoulder pain TECHNIQUE: AP portable x-ray of the chest. COMPARISON: None FINDINGS: Heart/Mediastinum: Prominence of the superior mediastinum is most likely from rightward patient rotation. Heart size is within normal limits. Lungs: Low lung volumes. No definite airspace consolidation or pleural effusion. Bones: No displaced fractures. Degenerative endplate spurring is present throughout the mid and lower aspects of the thoracic spine. IMPRESSION: No evidence of an acute cardiopulmonary abnormality. Report Dictated on --- Final --- Dictated: 05/30/2022 10:29 am Dictating Physician: MD IGLESIAS THOMAS Signed Date and Time: 05/30/2022 10:31 am Signed by: MD IGLESIAS THOMAS Transcribed Date and Time: 05/30/2022 10:29 [facility] Michel Iglesias M D - 05/30/2022 Patient Name: ANDRE BLANCA Diagnostic Radiology ACCESSION EXAM DATE/TIME PROCEDURE ORDERING PROVIDER [id number] 05/30/2022 10:36 EDT CR Chest Portable [id number] LYLE CPT code 90659 Reason For Exam (CR Chest Portable) fall, left shoulder pain Report AP CHEST X-RAY CLINICAL INDICATION: fall, left shoulder pain TECHNIQUE: AP portable x-ray of the chest. COMPARISON: None FINDINGS: Heart/Mediastinum: Prominence of the superior mediastinum is most likely from rightward patient rotation. Heart size is within normal limits. Lungs: Low lung volumes. No definite airspace consolidation or pleural effusion. Bones: No displaced fractures. Degenerative endplate spurring is present throughout the mid and lower aspects of the thoracic spine. IMPRESSION: No evidence of an acute cardiopulmonary abnormality. Report Dictated on --- Final --- Dictated: 05/30/2022 10:29 am Dictating Physician: MD IGLESIAS THOMAS Signed Date and Time: 05/30/2022 10:31 am Signed by: MD IGLESIAS THOMAS Transcribed Date and Time: 05/30/2022 10:29 [facility] Work Phone: [facility] Work Phone: XR ELBOW LEFT (MIN 3 VIEWS)o n 05-30-2022 Patient Name: ANDRE BLANCA Diagnostic Radiology ACCESSION EXAM DATE/TIME PROCEDURE ORDERING PROVIDER [id number] 05/30/2022 10:17 EDT CR Elbow 3+ Views Left [id number] -MARGARET CUEVAS CPT code 77320 Reason For Exam (CR Elbow 3+ Views Left) left elbow pain s/p fall Report LEFT ELBOW CLINICAL INDICATION: Pain after trauma left elbow pain s/p fall AP, lateral, and oblique plain film views of the left elbow were obtained. COMPARISON: None FINDINGS: There is an acute, mildly comminuted olecranon fracture of the humerus with mild proximal retraction of the major olecranon fracture fragment. Radiocapitellar alignment is maintained. Soft tissue swelling is present overlying the fracture. No fracture of the distal humerus or proximal radius is identified. IMPRESSION: Mildly displaced and mildly comminuted acute olecranon fracture. Report Dictated on --- Final --- Dictated: 05/30/2022 10:22 am Dictating Physician: MD IGLESIAS THOMAS Signed Date and Time: 05/30/2022 10:24 am Signed by: MD IGLESIAS THOMAS Transcribed Date and Time: 05/30/2022 10:22 [facility] Michel Iglesias M D - 05/30/2022 Patient Name: ANDRE BLANCA Diagnostic Radiology ACCESSION EXAM DATE/TIME PROCEDURE ORDERING PROVIDER [id number] 05/30/2022 10:17 EDT CR Elbow 3+ Views Left [id number] GOMEZ CPT code 82888 Reason For Exam (CR Elbow 3+ Views Left) left elbow pain s/p fall Report LEFT ELBOW CLINICAL INDICATION: Pain after trauma left elbow pain s/p fall AP, lateral, and oblique plain film views of the left elbow were obtained. COMPARISON: None FINDINGS: There is an acute, mildly comminuted olecranon fracture of the humerus with mild proximal retraction of the major olecranon fracture fragment. Radiocapitellar alignment is maintained. Soft tissue swelling is present overlying the fracture. No fracture of the distal humerus or proximal radius is identified. IMPRESSION: Mildly displaced and mildly comminuted acute olecranon fracture. Report Dictated on --- Final --- Dictated: 05/30/2022 10:22 am Dictating Physician: MD IGLESIAS THOMAS Signed Date and Time: 05/30/2022 10:24 am Signed by: MD IGLESIAS THOMAS Transcribed Date and Time: 05/30/2022 10:22 [facility] Work Phone: [facility] Work Phone: XR FEMUR LEFT (MIN 2 VIEWS)o n 05-30-2022 Patient Name: ANDRE BLANCA Diagnostic Radiology ACCESSION EXAM DATE/TIME PROCEDURE ORDERING PROVIDER [id number] 05/30/2022 10:17 EDT CR Femur 2+ Views Left n [id number] CAMARA CPT code 59754 Reason For Exam (CR Femur 2+ Views Left n) left leg pain s/p fall Report LEFT FEMUR PELVIS CLINICAL INDICATION: Pain left leg pain s/p fall AP and lateral plain film views of the left femur were obtained. AP radiograph the pelvis. COMPARISON: None FINDINGS: There is an acute transcervical fracture of the left femoral neck with mild anterior angulation of the fracture apex. No other acute fractures of the left femur or pelvis are identified. IMPRESSION: Acute left femoral neck fracture. Report Dictated on --- Final --- Dictated: 05/30/2022 10:24 am Dictating Physician: MD IGLESIAS THOMAS Signed Date and Time: 05/30/2022 10:28 am Signed by: MD IGLESIAS THOMAS Transcribed Date and Time: 05/30/2022 10:24 [facility] Michel Iglesias M D - 05/30/2022 Patient Name: ANDRE BLANCA Diagnostic Radiology ACCESSION EXAM DATE/TIME PROCEDURE ORDERING PROVIDER [id number] 05/30/2022 10:17 EDT CR Femur 2+ Views Left n [id number] -MARGARET CUEVAS CPT code 88634 Reason For Exam (CR Femur 2+ Views Left n) left leg pain s/p fall Report LEFT FEMUR PELVIS CLINICAL INDICATION: Pain left leg pain s/p fall AP and lateral plain film views of the left femur were obtained. AP radiograph the pelvis. COMPARISON: None FINDINGS: There is an acute transcervical fracture of the left femoral neck with mild anterior angulation of the fracture apex. No other acute fractures of the left femur or pelvis are identified. IMPRESSION: Acute left femoral neck fracture. Report Dictated on --- Final --- Dictated: 05/30/2022 10:24 am Dictating Physician: MD IGLESIAS THOMAS Signed Date and Time: 05/30/2022 10:28 am Signed by: MD IGLESIAS THOMAS Transcribed Date and Time: 05/30/2022 10:24 [facility] Work Phone: [facility] Work Phone: XR PELVIS (1-2 VW)on Patient Name: ANDRE BLANCA Diagnostic Radiology ACCESSION EXAM DATE/TIME PROCEDURE ORDERING PROVIDER [id number] 05/30/2022 10:36 EDT CR Pelvis 1 or 2 Views [id number] LYLE CPT code 84226 Reason For Exam (CR Pelvis 1 or 2 Views) fall, left hip pain Report LEFT FEMUR PELVIS CLINICAL INDICATION: Pain left leg pain s/p fall AP and lateral plain film views of the left femur were obtained. AP radiograph the pelvis. COMPARISON: None FINDINGS: There is an acute transcervical fracture of the left femoral neck with mild anterior angulation of the fracture apex. No other acute fractures of the left femur or pelvis are identified. IMPRESSION: Acute left femoral neck fracture. Report Dictated on --- Final --- Dictated: 05/30/2022 10:24 am Dictating Physician: MD IGLESIAS THOMAS Signed Date and Time: 05/30/2022 10:28 am Signed by: MD IGLESIAS THOMAS Transcribed Date and Time: 05/30/2022 10:24 [facility] Michel Iglesias M D - 05/30/2022 Patient Name: ANDRE BLANCA Diagnostic Radiology ACCESSION EXAM DATE/TIME PROCEDURE ORDERING PROVIDER [id number] 05/30/2022 10:36 EDT CR Pelvis 1 or 2 Views LALIT RECIO CPT code 86393 Reason For Exam (CR Pelvis 1 or 2 Views) fall, left hip pain Report LEFT FEMUR PELVIS CLINICAL INDICATION: Pain left leg pain s/p fall AP and lateral plain film views of the left femur were obtained. AP radiograph the pelvis. COMPARISON: None FINDINGS: There is an acute transcervical fracture of the left femoral neck with mild anterior angulation of the fracture apex. No other acute fractures of the left femur or pelvis are identified. IMPRESSION: Acute left femoral neck fracture. Report Dictated on --- Final --- Dictated: 05/30/2022 10:24 am Dictating Physician: MD IGLESIAS THOMAS Signed Date and Time: 05/30/2022 10:28 am Signed by: MD IGLESIAS THOMAS Transcribed Date and Time: 05/30/2022 10:24 [facility] Work Phone: [facility] Work Phone: XR Shoulder Left 2 VWon 10 Patient Name: ANDRE BLANCA 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 There is mild heterotopic ossification adjacent to the glenoid prosthesis. The acromioclavicular joint is intact. No left rib fractures are identified. No osseous lesions are seen. IMPRESSION: 1. No periprosthetic fracture of the left shoulder. Report Dictated on --- Final --- Dictated: 05/30/2022 10:28 am Dictating Physician: MD IGLESIAS THOMAS Signed Date and Time: 05/30/2022 10:29 am Signed by: MD IGLESIAS THOMAS Transcribed Date and Time: 05/30/2022 10:28 [facility] Michel Iglesias, M D - 05/30/2022 Patient Name: ANDRE BLANCA 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 There is mild heterotopic ossification adjacent to the glenoid prosthesis. The acromioclavicular joint is intact. No left rib fractures are identified. No osseous lesions are seen. IMPRESSION: 1. No periprosthetic fracture of the left shoulder. Report Dictated on --- Final --- Dictated: 05/30/2022 10:28 am Dictating Physician: MD IGLESIAS THOMAS Signed Date and Time: 05/30/2022 10:29 am Signed by: MD IGLESIAS THOMAS Transcribed Date and Time: 05/30/2022 10:28 [facility] Work Phone: XR Shoulder Left 2 VWOrdered By: Michel Iglesias on 05-30-2022 [facility] Work Phone: XR Tibia Fibula Bilateralon 05-30-2022 Patient Name: ANDRE BLANCA Diagnostic Radiology ACCESSION EXAM DATE/TIME PROCEDURE ORDERING PROVIDER [id number] 05/30/2022 19:27 EDT CR Tibia/Fibula 2 Views MD FARAZ, ERLINDA Bilateral CPT code 57937 Reason For Exam (CR Tibia/Fibula 2 Views Bilateral) Bilateral leg pain Report EXAMINATION: Bilateral tibia and fibula CLINICAL INDICATION: Bilateral leg pain TECHNIQUE: AP and lateral radiographs of the bilateral tibia/fibula COMPARISON: None FINDINGS: No fracture or dislocation. Degenerative changes are present in the bilateral knees, greater on the right. No soft tissue swelling. Report Dictated on --- Final --- Dictated: 05/30/2022 7:12 pm Dictating Physician: MD HICKS NICHOLAS Signed Date and Time: 05/30/2022 7:15 pm Signed by: MD HICKS NICHOLAS Transcribed Date and Time: 05/30/2022 7:12 [facility] Estevan Hicks MD - 05/30/2022 Patient Name: ANDRE BLANCA Diagnostic Radiology ACCESSION EXAM DATE/TIME PROCEDURE ORDERING PROVIDER [id number] 05/30/2022 19:27 EDT CR Tibia/Fibula 2 Views MD FARAZ, ERLINDA Bilateral CPT code 57830 Reason For Exam (CR Tibia/Fibula 2 Views Bilateral) Bilateral leg pain Report EXAMINATION: Bilateral tibia and fibula CLINICAL INDICATION: Bilateral leg pain TECHNIQUE: AP and lateral radiographs of the bilateral tibia/fibula COMPARISON: None FINDINGS: No fracture or dislocation. Degenerative changes are present in the bilateral knees, greater on the right. No soft tissue swelling. Report Dictated on --- Final --- Dictated: 05/30/2022 7:12 pm Dictating Physician: MD HICKS NICHOLAS Signed Date and Time: 05/30/2022 7:15 pm Signed by: MD HICKS NICHOLAS Transcribed Date and Time: 05/30/2022 7:12 [facility] Work Phone: Radiology Study observation (narrative) [facility] Work Phone: XR Tibia Fibula BilateralOrd ered By: Estevan Hicks on 05-30-2022 [facility] Work Phone: CR Knee 1 or 2 Views Righton 05-18-2022 CR Knee 1 or 2 Views Right Patient Name: ANDRE BLANCA Diagnostic Radiology ACCESSION EXAM DATE/TIME PROCEDURE ORDERING PROVIDER [id number] 05/18/2022 10:40 EDT CR Knee 1 or 2 Views [id number] -ABIOLA CONNOLLY Right CPT code 20487 Reason For Exam (CR Knee 1 or 2 Views Right) knee pain Report STANDING AP VIEW BILATERAL KNEES RIGHT KNEE SERIES CLINICAL INDICATION: Pain Standing AP and PA flexed views of the bilateral knees were performed. Lateral and sunrise plain film views of the right knee were also obtained. COMPARISON: None FINDINGS: The standing AP and PA flexed views of the bilateral knees demonstrate moderate loss of joint space and degenerative spurring within the medial lateral compartments of the right knee. There is mild to moderate degenerative spurring of the medial lateral compartments of the left knee with mild loss of joint space within the medial compartment. No fracture or dislocation of the right knee is identified. Moderate joint space loss and degenerative spurring of the patellofemoral compartment is noted. There is a small suprapatellar effusion. Soft tissues are unremarkable. IMPRESSION: No fracture or dislocation of the right knee is identified. Moderate tricompartmental osteoarthritis of the right knee. Mild to moderate osteoarthritis of the left knee on the frontal views provided. Report Dictated on Final Dictating Physician: MD RUBIN JONATHAN R Signed Date and Time: 05/18/2022 4:31 pm Signed by: MD RUBIN JONATHAN R Transcribed Date and Time: 05/18/2022 4:32 Normal [facility] CR Knee Standing Bilateralon 05-18-2022 CR Knee Standing Bilateral Patient Name: ANDRE BLANCA Diagnostic Radiology ACCESSION EXAM DATE/TIME PROCEDURE ORDERING PROVIDER [id number] 05/18/2022 10:45 EDT CR Knee Standing AP [id number] -ABIOLA CONNOLLY Bilateral CPT code 37382 Reason For Exam (CR Knee Standing AP Bilateral) knee pain Report STANDING AP VIEW BILATERAL KNEES RIGHT KNEE SERIES CLINICAL INDICATION: Pain Standing AP and PA flexed views of the bilateral knees were performed. Lateral and sunrise plain film views of the right knee were also obtained. COMPARISON: None FINDINGS: The standing AP and PA flexed views of the bilateral knees demonstrate moderate loss of joint space and degenerative spurring within the medial lateral compartments of the right knee. There is mild to moderate degenerative spurring of the medial lateral compartments of the left knee with mild loss of joint space within the medial compartment. No fracture or dislocation of the right knee is identified. Moderate joint space loss and degenerative spurring of the patellofemoral compartment is noted. There is a small suprapatellar effusion. Soft tissues are unremarkable. IMPRESSION: No fracture or dislocation of the right knee is identified. Moderate tricompartmental osteoarthritis of the right knee. Mild to moderate osteoarthritis of the left knee on the frontal views provided. Report Dictated on Final Dictating Physician: MD RUBIN JONATHAN R Signed Date and Time: 05/18/2022 4:31 pm Signed by: MD RUBIN JONATHAN R Transcribed Date and Time: 05/18/2022 4:32 Normal [facility] No Panel Informationon 05-18 Radiology Study observation (narrative) [facility] Work Phone: XR KNEE BILATERAL STANDINGon 05-18-2022 Patient Name: ANDRE BLANCA Diagnostic Radiology ACCESSION EXAM DATE/TIME PROCEDURE ORDERING PROVIDER [id number] 05/18/2022 10:45 EDT CR Knee Standing AP ABIOLA HARMAN Bilateral CPT code 00356 Reason For Exam (CR Knee Standing AP Bilateral) knee pain Report STANDING AP VIEW BILATERAL KNEES RIGHT KNEE SERIES CLINICAL INDICATION: Pain Standing AP and PA flexed views of the bilateral knees were performed. Lateral and sunrise plain film views of the right knee were also obtained. COMPARISON: None FINDINGS: The standing AP and PA flexed views of the bilateral knees demonstrate moderate loss of joint space and degenerative spurring within the medial lateral compartments of the right knee. There is mild to moderate degenerative spurring of the medial lateral compartments of the left knee with mild loss of joint space within the medial compartment. No fracture or dislocation of the right knee is identified. Moderate joint space loss and degenerative spurring of the patellofemoral compartment is noted. There is a small suprapatellar effusion. Soft tissues are unremarkable. IMPRESSION: No fracture or dislocation of the right knee is identified. Moderate tricompartmental osteoarthritis of the right knee. Mild to moderate osteoarthritis of the left knee on the frontal views provided. Report Dictated on --- Final --- Dictating Physician: MD RUBIN JONATHAN R Signed Date and Time: 05/18/2022 4:31 pm Signed by: MD RUBIN JONATHAN R Transcribed Date and Time: 05/18/2022 4:32 [facility] [place] Rubin MD - 05/18/2022 Patient Name: ANDRE BLANCA Diagnostic Radiology ACCESSION EXAM DATE/TIME PROCEDURE ORDERING PROVIDER [id number] 05/18/2022 10:45 EDT CR Knee Standing AP [id number] SIMON Bilateral CPT code 71165 Reason For Exam (CR Knee Standing AP Bilateral) knee pain Report STANDING AP VIEW BILATERAL KNEES RIGHT KNEE SERIES CLINICAL INDICATION: Pain Standing AP and PA flexed views of the bilateral knees were performed. Lateral and sunrise plain film views of the right knee were also obtained. COMPARISON: None FINDINGS: The standing AP and PA flexed views of the bilateral knees demonstrate moderate loss of joint space and degenerative spurring within the medial lateral compartments of the right knee. There is mild to moderate degenerative spurring of the medial lateral compartments of the left knee with mild loss of joint space within the medial compartment. No fracture or dislocation of the right knee is identified. Moderate joint space loss and degenerative spurring of the patellofemoral compartment is noted. There is a small suprapatellar effusion. Soft tissues are unremarkable. IMPRESSION: No fracture or dislocation of the right knee is identified. Moderate tricompartmental osteoarthritis of the right knee. Mild to moderate osteoarthritis of the left knee on the frontal views provided. Report Dictated on --- Final --- Dictating Physician: MD RUBIN JONATHAN R Signed Date and Time: 05/18/2022 4:31 pm Signed by: MD RUBIN JONATHAN R Transcribed Date and Time: 05/18/2022 4:32 [facility] Work Phone: [facility] Work Phone: XR KNEE RIGHT (1-2 VIEWS)on 05-18-2022 [facility]: [id number] ACCESSION EXAM DATE/TIME PROCEDURE ORDERING PROVIDER [id number] 05/18/2022 10:40 EDT CR Knee 1 or 2 Views [id number] -ABIOLA CONNOLLY Right CPT code 84766 Reason For Exam (CR Knee 1 or 2 Views Right) knee pain Report STANDING AP VIEW BILATERAL KNEES RIGHT KNEE SERIES CLINICAL INDICATION: Pain Standing AP and PA flexed views of the bilateral knees were performed. Lateral and sunrise plain film views of the right knee were also obtained. COMPARISON: None FINDINGS: The standing AP and PA flexed views of the bilateral knees demonstrate moderate loss of joint space and degenerative spurring within the medial lateral compartments of the right knee. There is mild to moderate degenerative spurring of the medial lateral compartments of the left knee with mild loss of joint space within the medial compartment. No fracture or dislocation of the right knee is identified. Moderate joint space loss and degenerative spurring of the patellofemoral compartment is noted. There is a small suprapatellar effusion. Soft tissues are unremarkable. IMPRESSION: No fracture or dislocation of the right knee is identified. Moderate tricompartmental osteoarthritis of the right knee. Mild to moderate osteoarthritis of the left knee on the frontal views provided. Report Dictated on --- Final --- Dictating Physician: MD RUBIN JONATHAN R Signed Date and Time: 05/18/2022 4:31 pm Signed by: MD RUBIN JONATHAN R Transcribed Date and Time: 05/18/2022 4:32 [facility] Troy Rubin MD - 05/18/2022 [id number]iology ACCESSION EXAM DATE/TIME PROCEDURE ORDERING PROVIDER [id number] 05/18/2022 10:40 EDT CR Knee 1 or 2 Views [id number] -MIOMANOJABIOLA Right CPT code 01006 Reason For Exam (CR Knee 1 or 2 Views Right) knee pain Report STANDING AP VIEW BILATERAL KNEES RIGHT KNEE SERIES CLINICAL INDICATION: Pain Standing AP and PA flexed views of the bilateral knees were performed. Lateral and sunrise plain film views of the right knee were also obtained. COMPARISON: None FINDINGS: The standing AP and PA flexed views of the bilateral knees demonstrate moderate loss of joint space and degenerative spurring within the medial lateral compartments of the right knee. There is mild to moderate degenerative spurring of the medial lateral compartments of the left knee with mild loss of joint space within the medial compartment. No fracture or dislocation of the right knee is identified. Moderate joint space loss and degenerative spurring of the patellofemoral compartment is noted. There is a small suprapatellar effusion. Soft tissues are unremarkable. IMPRESSION: No fracture or dislocation of the right knee is identified. Moderate tricompartmental osteoarthritis of the right knee. Mild to moderate osteoarthritis of the left knee on the frontal views provided. Report Dictated on --- Final --- Dictating Physician: MD RUBIN JONATHAN R Signed Date and Time: 05/18/2022 4:31 pm Signed by: MD RUBIN JONATHAN R Transcribed Date and Time: 05/18/2022 4:32 [facility] Work Phone: XR KNEE RIGHT (1-2 VIEWS)Ord ered By: Troy Rubin on 05-18-2022 [facility] Work Phone: CR Shoulder 2+ Views Lefton 05-05-2022 CR Shoulder 2+ Views Left Patient Name: ANDRE BLANCA Diagnostic Radiology ACCESSION EXAM DATE/TIME PROCEDURE ORDERING PROVIDER [id number] 05/05/2022 10:01 EDT CR Shoulder 2+ Views [id number] -BACKER, Left [place]GREG[place] CPT code 53562 Reason For Exam (CR Shoulder 2+ Views Left) PAIN Report LEFT SHOULDER: CLINICAL INDICATION: Left shoulder pain. Follow-up. TECHNIQUE: Three views of the left shoulder. COMPARISON: 03/03/2022. FINDINGS: Left shoulder reverse arthroplasty is intact and aligned. No interval change in position of hardware is evident. No hardware loosening is seen. There is periarticular soft tissue calcification inferior to the left acromion and lateral to the hardware, unchanged in appearance. There is no fracture or dislocation. Osseous structures are demineralized. The glenohumeral and acromioclavicular joints are unremarkable. Thoracic degenerative spondylosis. No bone lesion or soft tissue abnormality is identified. IMPRESSION: Left shoulder arthroplasty without loosening. Osteopenia. Alignment is anatomic. No acute fracture. Report Dictated on Final Dictating Physician: GIANA MEJIA DO, I Signed Date and Time: 05/06/2022 4:29 pm Signed by: GIANA MEJIA DO, I Transcribed Date and Time: 05/06/2022 4:30 Normal [facility] Basophil percentageon 2021 Chloride [Moles/Vol] 105 mmol/L 98-107 [facility] Work Phone: Glucose [Mass/Vol] 110 mg/dL 74-106 [facility] Work Phone: Comment on above: Fasting Glucose resu lt from 100 to 125 mg/dL suggests IMPAIRED HOMEOSTASIS per A.D.A. criteria. Potassium [Moles/Vol] 3.1 mmol/L 3.5-5.1 [facility] Work Phone: Sodium [Moles/Vol] 143 mmol/L 136-145 [facility] Work Phone: WBC (Bld) [#/Vol] 5.5 10*3/uL 4.4-11.0 [facility] Work Phone: Blood erythrocytes count (nu mber/volume)on 04-25-2022 RBC (Bld) [#/Vol] 3.80 10*6/uL 4.2-5.4 [facility]: Blood hemoglobin measurement (mass/volume)on 04-25-2022 Hemoglobin (Bld) [Mass/Vol] 10.8 g/dL 12.0-15.0 [facility] Work Phone: Blood platelet mean volumeon 04-25-2022 Platelet mean volume (Bld) [Entitic vol] 10.2 fL 6.2-12.0 [facility] Work Phone: Determination of erythrocyte mean corpuscular volume (MCV)on 04-25-2022 MCV (RBC) [Entitic vol] 88.9 fL 81-99 [facility] Work Phone: Hematocrit Auto (Bld) [Volum e fraction]on 04-25-2022 Hematocrit (Bld) [Volume fraction] 33.8 % 37-47 [facility] Work Phone: Laboratory - Chemistry and C hemistry - challengeon 04-25-2022 CO2 [Moles/Vol] 32.0 mmol/L 21.0-32.0 [facility] Work Phone: Urea nitrogen/Creatinine [Mass ratio] 10.6 mg/mg 10-20 [facility] Work Phone: Laboratory - Hematology and Cell countson 04-25-2022 Erythrocyte distribution width (RBC) [Entitic vol] 45.5 fL 35.1-43.9 [facility] Work Phone: Erythrocyte distribution width (RBC) [Ratio] 14.0 % 11.6-14.6 [facility] Work Phone: MCH (RBC) [Entitic mass] 28.4 pg 27.0-32.0 [facility] Work Phone: MCHC Auto (RBC) [Mass/Vol]on 04-25-2022 MCHC (RBC) [Mass/Vol] 32.0 g/dL 32-36 [facility] Work Phone: No Panel Informationon 04-25 Estimated GFR (MDRD) Amer 113 mL/min >60 [facility] Work Phone: Comment on above: GFR Calc Estimated GFR (MDRD) Non-Af Amer 94 mL/min >60 [facility] Work Phone: Comment on above: Non- GFR Calc Platelets bldon 04-25-2022 Platelets (Bld) [#/Vol] 260 10*3/uL 150-450 [facility] Work Phone: Serum or plasma calcium carlie urement (mass/volume)on 04-25-2022 Calcium [Mass/Vol] 8.7 mg/dL 8.5-10.1 [facility] Work Phone: Serum or plasma creatinine m easurement (mass/volume)on 04-25-2022 Creatinine [Mass/Vol] 0.66 mg/dL 0.55-1.02 [facility] Work Phone: Comment on above: The validity of the calculated GFR & GFRAA in patients over 70 years has not been determined. Clinical correlation is essential. Serum or plasma urea nitroge n measurement (mass/volume)on 04-25-2022 Urea nitrogen [Mass/Vol] 7 mg/dL 7-18 [facility] Work Phone: Thin prep Papanicolaou smear with manual screeningon 04-25-2022 Thin prep Papanicolaou smear with manual screening 6 5-15 [facility] Work Phone: No Panel Informationon 03-25 Thyroid Stimulating Hormone (TSH) 0.01 uIU/mL 0.358-3.74 [facility] Work Phone: Whole blood hemoglobin A1c/t otal hemoglobin ratio (mass fraction)on 03-25-2022 HbA1c (Bld) [Mass fraction] 5.4 % 3.8-5.6 [facility] Work Phone: Comment on above: Normal < 5.7 % Predi abetic 5.7 - 6.4 % Diabetic >or= 6.5 % Please note range changes. Absolute lymphocyte counton 03-14-2022 Lymphocytes Auto (Unsp spec) [#/Vol] 1.95 10*3/uL 0.83-4.51 [facility] Work Phone: Basophil percentageon 2021 Basophils/100 WBC (Bld) 1.1 % 0-1 [facility] Work Phone: Eosinophils/100 WBC (Bld) 4.7 % 0-5 [facility] Work Phone: Neutrophils (Bld) [#/Vol] 3.4 10*3/uL 2.0-7.7 [facility] Work Phone: Neutrophils/100 WBC (Bld) 55.3 % 47-70 [facility] Work Phone: WBC (Bld) [#/Vol] 6.2 10*3/uL 4.4-11.0 [facility] Work Phone: Blood erythrocytes count (nu mber/volume)on 03-14-2022 RBC (Bld) [#/Vol] 4.05 10*6/uL 4.2-5.4 [facility] Work Phone: Blood hemoglobin measurement (mass/volume)on 03-14-2022 Hemoglobin (Bld) [Mass/Vol] 11.7 g/dL 12.0-15.0 [facility] Work Phone: Blood lymphocytes/100 leukoc yteson 03-14-2022 Lymphocytes/100 WBC (Bld) 31.6 % 19-41 [facility] Work Phone: Blood monocytes/100 leukocyt eson 03-14-2022 Monocytes/100 WBC (Bld) 7.0 % 0-10 [facility] Work Phone: Blood platelet mean volumeon 03-14-2022 Platelet mean volume (Bld) [Entitic vol] 10.1 fL 6.2-12.0 [facility] Work Phone: Determination of erythrocyte mean corpuscular volume (MCV)on 03-14-2022 MCV (RBC) [Entitic vol] 90.4 fL 81-99 [facility] Work Phone: Hematocrit Auto (Bld) [Volum e fraction]on 03-14-2022 Hematocrit (Bld) [Volume fraction] 36.6 % 37-47 [facility] Work Phone: Laboratory - Hematology and Cell countson 03-14-2022 Erythrocyte distribution width (RBC) [Entitic vol] 44.3 fL 35.1-43.9 [facility] Work Phone: Erythrocyte distribution width (RBC) [Ratio] 13.3 % 11.6-14.6 [facility] Work Phone: Immature granulocytes/100 WBC (Bld) 0.300 % 0.0-0.9 [facility] Work Phone: Comment on above: IG% - Immature Granu locytes (promyelocytes, myelocytes and metamyelocytes) > 1% indicates that a LEFT SHIFT is Present. MCH (RBC) [Entitic mass] 28.9 pg 27.0-32.0 [facility] Work Phone: Nucleated RBC/100 WBC (Bld) [Ratio] 0 % 0-5 [facility] Work Phone: MCHC Auto (RBC) [Mass/Vol]on 03-14-2022 MCHC (RBC) [Mass/Vol] 32.0 g/dL 32-36 [facility] Work Phone: Platelets bldon 03-14-2022 Platelets (Bld) [#/Vol] 292 10*3/uL 150-450 [facility] Work Phone: CR Shoulder 2+ Views Lefton 03-03-2022 CR Shoulder 2+ Views Left [facility]: [id number] ACCESSION EXAM DATE/TIME PROCEDURE ORDERING PROVIDER [id number] 03/03/2022 09:30 EDT CR Shoulder 2+ Views ANALISA LEONG, NURYS Rubio Left CPT code 41840 Reason For Exam (CR Shoulder 2+ Views Left) PAIN Report EXAMINATION: XR left shoulder. EXAM DATE and TIME: 03/03/2022 9:30 AM EDT INDICATION: PAIN ADDITIONAL INFORMATION: 71-year-old female with left shoulder pain presents for evaluation COMPARISON: Left shoulder radiographs dated 01/25/2022 TECHNIQUE: Grashey, axillolateral and scapular Y views of the left shoulder were obtained. FINDINGS: No acute fracture or traumatic dislocation is identified. The patient is status post reverse left total shoulder arthroplasty. The orthopedic hardware is intact without evidence of failure. There is mild diffuse osteopenia. No focal soft tissue abnormality is evident. IMPRESSION: Status post reverse left total shoulder arthroplasty without an acute osseous abnormality identified. Report Dictated on Final Dictating Physician: MD STUART CHRISTOPHER Signed Date and Time: 03/04/2022 12:29 pm Signed by: MD STUART CHRISTOPHER Transcribed Date and Time: 03/04/2022 12:30 Normal [facility] CBCOrdered By: Marjorie Carrillo on 01-19-2022 Hematocrit (Bld) [Volume fraction] 32.9 % Low 35.0 - 47.0 % [facility] Hemoglobin (Bld) [Mass/Vol] 10.6 g/dL Low 11.7 - 16.0 g/dL [facility] Interpretation and review of laboratory results Abnormal [facility] MCH (RBC) [Entitic mass] 28.2 pg 26.0 - 34.0 pg [facility] M[facility]C (RBC) [Mass/Vol] 32.2 % 32.0 - 36.0 % [facility] MCV (RBC) [Entitic vol] 87.5 fL 79.0 - 98.0 fL [facility] Platelet distribution width (Bld) [Ratio] 15.5 % High 11.5 - 14.5 % [facility] Platelet mean volume (Bld) [Entitic vol] 8.1 fL 7.4 - 12.4 fL [facility] Comment on above: MPV is a calculated measurement using platelet volume ratio. Platelets (Bld) [#/Vol] 244 10*3/uL 140 - 440 10*3/uL [facility] RBC (Bld) [#/Vol] 3.75 10*6/uL Low 3.80 - 5.2 0 10*6/uL [facility] WBC (Bld) [#/Vol] 11.3 10*3/uL High 3.6 - 10.7 10*3/uL [facility] CBCon 01-19-2022 Test Performed by [facility], [address] [place], [place] [address] [facility] Comp Metabolic Panelon 01-19 Calcium [Mass/Vol] 8.4 mg/dL Normal 8.4-10.4 [facility] Comment on above: Performed By: #### H JEWEL JIM3 #### [facility] [address] [place] [address] ALP [Catalytic activity/Vol] 114 U/L Normal 38-126 [facility] Comment on above: Performed By: #### H JEWEL JIM3 #### [facility] [address] [place] [address] ALT [Catalytic activity/Vol] 9 U/L Normal 0-34 [facility] Comment on above: Result Comment: The ALT test is performed by an updated assay method. Please note that the reference intervals have been changed and are now sex specific. Performed By: #### H JEWEL JIM3 #### [facility] [address] [place] [address] Anion gap [Moles/Vol] 6 mmol/L Normal 3-13 [facility] Comment on above: Performed By: #### H EMOG, CMP3 #### [facility] [address] [place] [address] AST [Catalytic activity/Vol] 27 U/L Normal 15-46 [facility] Comment on above: Performed By: #### H HERNÁN, CMP3 #### [facility] [address] [place] [address] Bilirubin [Mass/Vol] 0.5 mg/dL Normal 0.2-1.3 [facility] Comment on above: Performed By: #### H HERNÁN CMP3 #### [facility] [address] [place] [address] CO2 [Moles/Vol] 27 mmol/L Normal 22-30 [facility] Comment on above: Performed By: #### H HERNÁN CMP3 #### [facility] [address] [place] [address] Creatinine [Mass/Vol] 0.76 mg/dL Normal 0.52-1.25 [facility] Comment on above: Performed By: #### Ana Rosa JIM CMP3 #### [facility] [address] [place] [address] GFR/1.73 sq M.predicted among blacks MDRD (S/P/Bld) [Vol rate/Area] mL/min/{1.73_m2} Normal >60 [facility] Comment on above: Performed By: #### H HERNÁN CMP3 #### [facility] [address] [place] [address] GFR/1.73 sq M.predicted among non-blacks MDRD (S/P/Bld) [Vol rate/Area] 78.1 mL/min/{1.73_m2} Normal >60 [facility] Comment on above: Result Comment: KDIG O guidelines provide the following GFR categories: Stage GFR(ml/min/1.73 m2) Terms G1 >=90 Normal or high G2 60-89 Mildly decreased* G3a 45-59 Mildly to moderately decreased G3b 30-44 Moderately to severely decreased G4 15-29 Severely decreased G5 <15 Kidney failure *Relative to young adult level. In the absence of evidence of kidney damage, neither GFR category G1 nor G2 fulfill the criteria for CKD. The CKD-EPI equation is validated in individuals 18 years of age and older. Currently the best equation for estimating glomerular filtration rate (GFR) from serum creatinine in children is the Bedside Fuchs equation. It is less accurate in patients with extremes of muscle mass, restriction of dietary protein, ingestion of creatine, extra-renal metabolism of creatinine, or treatment with medications that affect renal tubular creatinine secretion. Performed By: #### H HERNÁN CMP3 #### [facility] [address] [place] [address] Glucose [Mass/Vol] 116 mg/dL High 70-100 [facility] Comment on above: Performed By: #### H HERNÁN CMP3 #### [facility] [address] [place] [address] Protein [Mass/Vol] 6.5 g/dL Normal 6.3-8.2 [facility] Comment on above: Performed By: #### H HERNÁN CMP3 #### [facility] [address] [place] [address] Urea nitrogen [Mass/Vol] 11 mg/dL Normal 9-20 [facility] Comment on above: Performed By: #### H HERNÁN CMP3 #### [facility] [address] [place] [address] Potassium [Moles/Vol] 3.7 mmol/L Normal 3.5-5.1 [facility] Comment on above: Performed By: #### Ana Rosa JIM CMP3 #### [facility] [address] [place] [address] Albumin [Mass/Vol] 3.4 g/dL Low 3.5-5.0 [facility] Comment on above: Performed By: #### H HERNÁN CMP3 #### [facility] [address] [place] [address] Chloride [Moles/Vol] 102 mmol/L Normal 98-107 [facility] Comment on above: Performed By: #### H HERNÁN CMP3 #### [facility] [address] [place] [address] Sodium [Moles/Vol] 136 mmol/L Normal 135-145 [facility] Comment on above: Performed By: #### H HERNÁN CMP3 #### [facility] [address] [place] [address] Complete Urinalysison 2021 Appearance (U) Clear Normal Clear [facility] Comment on above: Result Comment: . Performed By: #### C UA2 #### [facility] [address] [place] [address] Bacteria Few Abnormal Negative [facility] Comment on above: Result Comment: . Performed By: #### C UA2 #### [facility] [address] [place] [address] Bilirubin,Urine Negative Normal Negative [facility] Comment on above: Result Comment: . Performed By: #### C UA2 #### [facility] [address] [place] [address] Cast, Hyaline 6 - 10 Abnormal Negative [facility] Comment on above: Result Comment: . Performed By: #### C UA2 #### [facility] [address] [place] [address] Color (U) Yellow Normal Lt. Yellow [facility] Comment on above: Result Comment: . Performed By: #### C UA2 #### [facility] [address] [place] [address] Glucose Ql (U) Normal Normal Normal (<70) [facility] Comment on above: Result Comment: . Performed By: #### C UA2 #### [facility] [address] [place] [address] Ketone,Urine Negative Normal Negative [facility] Comment on above: Result Comment: . Performed By: #### C UA2 #### [facility] [address] [place] [address] Leukocytes,Urine Negative Normal Negative [facility] Comment on above: Result Comment: . Performed By: #### C UA2 #### [facility] [address] [place] [address] Mucous Threads Few Normal Negative [facility] Comment on above: Result Comment: . Performed By: #### C UA2 #### [facility] [address] [place] [address] Nitrites,Urine Negative Normal Negative [facility] Comment on above: Result Comment: . Performed By: #### C UA2 #### [facility] [address] [place] [address] Occult Blood,Urine Negative Normal Negative [facility] Comment on above: Result Comment: . Performed By: #### C UA2 #### [facility] [address] [place] [address] pH,Urine 5.5 Normal 5.0-8.0 [facility] Comment on above: Result Comment: . Performed By: #### C UA2 #### [facility] [address] [place] [address] Protein (U) [Mass/Vol] 10 mg/dL Abnormal Negative [facility] Comment on above: Result Comment: . Performed By: #### C UA2 #### [facility] [address] [place] [address] RBC, Urine 0 - 2 Normal 0-2 [facility] Comment on above: Result Comment: . Performed By: #### C UA2 #### [place] [address] [place] [address] Specific [place],Urine 1.023 Normal 1.005 - 1.030 [facility] Comment on above: Result Comment: . Performed By: #### C UA2 #### [facility] [address] [place] [address] Squamous Epithelial 3 - 5 Normal 3-5 [facility] Comment on above: Result Comment: . Performed By: #### C UA2 #### [facility] [address] [place] [address] Urobilinogen,Urine Normal Normal Normal (0-1) [facility] Comment on above: Result Comment: . Performed By: #### C UA2 #### [facility] [address] [place] [address] WBC, Urine 3 - 5 Normal 0-5 [facility] Comment on above: Result Comment: . Performed By: #### C UA2 #### [facility] [address] [place] [address] Comprehensive Metabolic Pane jay 01-19-2022 Albumin [Mass/Vol] 3.4 g/dL Low 3.5 - 5.0 g/dL [facility] Work Phone: ALP (Bld) [Catalytic activity/Vol] 114 U/L 38 - 126 U/L [facility] Work Phone: ALT [Catalytic activity/Vol] 9 U/L 0 - 34 U/L [facility] Work Phone: Comment on above: The ALT test is perf ormed by an updated assay method. Please note that the reference intervals have been changed and are now sex specific. Anion gap [Moles/Vol] 6 mmol/L 3 - 13 mmol/L [facility] Work Phone: AST [Catalytic activity/Vol] 27 U/L 15 - 46 U/L [facility] Work Phone: Bilirubin [Mass/Vol] 0.5 mg/dL 0.2 - 1 .3 mg/dL [facility] Work Phone: Calcium [Mass/Vol] 8.4 mg/dL 8.4 - 10. 4 mg/dL [facility] Work Phone: [phone] Chloride [Moles/Vol] 102 mmol/L 98 - 10 7 mmol/L [facility] Work Phone: CO2 [Moles/Vol] 27 mmol/L 22 - 30 mmol/L [facility] Work Phone: [phone] Creatinine [Mass/Vol] 0.76 mg/dL 0.52 - 1.25 mg/dL [facility] Work Phone: EGFR IF NonAfrican Hungarian 78.1 mL/min >60 [facility] Work Phone: Comment on above: KDIGO guidelines pro vide the following GFR categories: Stage GFR(ml/min/1.73 m2) Terms G1 >=90 Normal or high G2 60-89 Mildly decreased* G3a 45-59 Mildly to moderately decreased G3b 30-44 Moderately to severely decreased G4 15-29 Severely decreased G5 <15 Kidney failure *Relative to young adult level. In the absence of evidence of kidney damage, neither GFR category G1 nor G2 fulfill the criteria for CKD. The CKD-EPI equation is validated in individuals 18 years of age and older. Currently the best equation for estimating glomerular filtration rate (GFR) from serum creatinine in children is the Bedside Fuchs equation. It is less accurate in patients with extremes of muscle mass, restriction of dietary protein, ingestion of creatine, extra-renal metabolism of creatinine, or treatment with medications that affect renal tubular creatinine secretion. Free PSA/Total PSA [Mass fraction] 6.5 g/dL 6.3 - 8.2 g/dL [facility] Work Phone: GFR/1.73 sq M.predicted among blacks MDRD (S/P/Bld) [Vol rate/Area] mL/min/{1.73_m2} >60 mL/min [facility] Work Phone: Glucose [Mass/Vol] 116 mg/dL High 70 - 100 mg/dL [facility] Work Phone: Interpretation and review of laboratory results Abnormal [facility] Work Phone: Potassium [Moles/Vol] 3.7 mmol/L 3.5 - 5.1 mmol/L [facility] Work Phone: Sodium [Moles/Vol] 136 mmol/L 135 - 145 mmol/L [facility] Work Phone: Urea nitrogen (BldV) [Mass/Vol] 11 mg/dL 9 - 20 mg/dL [facility] Work Phone: Test Performed by [facility], [address] [place], [place] [address] [facility] Work Phone: Hemogramon 01-19-2022 Erythrocyte distribution width (RBC) [Ratio] 15.5 % High 11.5-14.5 [facility] Comment on above: Performed By: #### H JEWEL JIM3 #### [facility] [address] [place] [address] Hematocrit (Bld) [Volume fraction] 32.9 % Low 35.0-47.0 [facility] Comment on above: Performed By: #### H JEWEL JIM3 #### [facility] [address] [place] [address] Hemoglobin (Bld) [Mass/Vol] 10.6 g/dL Low 11.7-16.0 [facility] Comment on above: Performed By: #### H JEWEL JIM3 #### [facility] [address] [place] [address] MCH (RBC) [Entitic mass] 28.2 pg Normal 26.0-34.0 [facility] Comment on above: Performed By: #### Ana Rosa JIM CMP3 #### [facility] [address] [place] [address] MCHC 32.2 % Normal 32.0-36.0 [facility] Comment on above: Performed By: #### Ana Rosa JIM CMP3 #### [facility] [address] [place] [address] MCV (RBC) [Entitic vol] 87.5 fL Normal 79.0-98.0 [facility] Comment on above: Performed By: #### Ana Rosa JIM CMP3 #### [facility] [address] [place] [address] Platelet mean volume (Bld) [Entitic vol] 8.1 fL Normal 7.4-12.4 [facility] Comment on above: Result Comment: MPV is a calculated measurement using platelet volume ratio. Performed By: #### Ana Rosa JIM CMP3 #### [facility] [address] [place] [address] Platelets (Bld) [#/Vol] 244 10*3/uL Normal 140-440 [facility] Comment on above: Performed By: #### Ana Rosa JIM CMP3 #### [facility] [address] [place] [address] RBC (Bld) [#/Vol] 3.75 10*6/uL Low 3.80-5.20 [facility] Comment on above: Performed By: #### Ana Rosa JIM CMP3 #### [facility] [address] [place] [address] WBC (Bld) [#/Vol] 11.3 10*3/uL High 3.6-10.7 [facility] Comment on above: Performed By: #### Ana Rosa JIM CMP3 #### [facility] [address] [place] [address] Urinalysison 01-19-2022 Appearance (U) Clear Clear NA [facility] Comment on above: . Bacteria, UA Few Abnormal Negative /[HPF] [facility] Comment on above: . Bilirubin Urine Negative Negative mg/dL [facility] Comment on above: . Color (U) Yellow Lt. Yellow NA [facility] Comment on above: . Glucose, Ur Normal Normal (<70) mg/dL [facility] Comment on above: . Hyaline Casts, UA 6-10 Abnormal Negative /[LPF] [facility] Comment on above: . Interpretation and review of laboratory results Abnormal [facility] Ketones Ql (U) Negative Negative mg/dL [facility] Comment on above: . LEUKOCYTES, UA Negative Negative Dino/uL [facility] Comment on above: . Mucous Threads Few Negative /[LPF] [facility] Comment on above: . Nitrite, Urine Negative Negative NA [facility] Comment on above: . Occult Blood,Urine Negative Negative mg/dL [facility] Comment on above: . pH (U) 5.5 [pH] [facility] Comment on above: . Protein (U) [Mass/Vol] 10 mg/dL Abnormal Negative [facility] Comment on above: . RBC, UA 0-2 0 - 2 /[HPF] [facility] Comment on above: . Specific [place], Urine 1.023 S [facility] Comment on above: . Squam Epithel, UA 3-5 3 - 5 /[HPF] [facility] Comment on above: . Urobilinogen, Urine Normal Normal ( 0-1) mg/dL [facility] Comment on above: . WBC, UA 3-5 0 - 5 /[HPF] [facility] Comment on above: . Test Performed by [facility], [address] [place], [place] [id number] [place] [address] LAB [facility] CR Shoulder 2+ Views Lefton 01-18-2022 CR Shoulder 2+ Views Left [facility]: [id number]iology ACCESSION EXAM DATE/TIME PROCEDURE ORDERING PROVIDER [id number] 01/18/2022 12:12 EDT CR Shoulder 2+ Views MIL[place], FAMILIA Left CPT code 20325 Reason For Exam (CR Shoulder 2+ Views Left) PACU post-op rTSA Report Left shoulder three views HISTORY: Postoperative Left shoulder prosthesis. The alignment is anatomic. No evidence of a fracture. Report Dictated on Final Dictating Physician: MD JAMA, DARREL Signed Date and Time: 01/18/2022 1:58 pm Signed by: MD JAMA, DARREL Transcribed Date and Time: 01/18/2022 1:59 Normal [facility] OPERATIVE REPORTon 2 Ordered by an unspecified provider. [facility] Op Noteon 01-18-2022 Op Note [facility] [address] [address] Dept: [phone] Loc: [phone] Operative Report Patient Name: Andre Blanca Date of : 1950 Date of Surgery: 01/18/22 Location: [facility] Preoperative Diagnosis: LEFT shoulder rotator cuff tear arthropathy Postoperative Diagnosis: Same Procedure: LEFT REVERSE TOTAL SHOULDER ARTHROPLASTY Surgeon: Kim Muhammad MD 1st Assist: Familia Esparza MD 2nd Assist: Nurys Leong PA-C Implants: Arthrex Univers Reverse Modular Glenoid System Baseplate: 24mm 20? full wedge +2mm lateralized with 30mm central post Glenosphere: 36mm +4 lateralized Humeral Stem: Size 6 press fit Humeral Liner: 36+6 standard Specimens Removed: none Anesthesia: General + Regional Estimated Blood Loss: 100cc Pre Operative Antibiotics: Yes + 1g Vancomycin powder deep within wound at time of closure Indications: Ms. Andre Blanca is a 71 y.o. year-old female with cuff tear arthropathy who failed conservative management and elected to proceed with operative intervention. I have discussed with her, preoperatively, the complications, limitations, expectations, alternatives, and risks of surgical care which she has understood. No guarantees were given or implied. Ms. Andre Blanca has provided written informed consent to proceed. Please see office note for full discussion of risks/benefits. Procedure: Andre Blanca was identified in the preoperative waiting area. her operative site was initialed and consent was reviewed. Final questions were answered. Ms. Andre Blanca was brought to the operating room and placed in the beach chair position. All bony prominences were well padded. The aforementioned anesthesia was administered. The operative extremity was prepped and draped in the usual sterile fashion followed by Ioban antimicrobial dressing to cover the exposed skin of the shoulder and axilla. A surgical timeout was then performed with the patient's identification, the procedure to be performed being reviewed, verification that the patient had received preoperative antibiotics as indicated and verification of the correct surgical side. The patient's ASA was verified by the nurse enrichment specialist and the anesthesia staff. Fire risk was assessed. 1 gram of TXA was given IV before incision I utilized a standard deltopectoral approach. Sharp dissection was carried down through the skin and the scalpel was removed from the surgical field. Electrocautery was then utilized through the subcutaneous tissues to maintain meticulous hemostasis. The deltopectoral interval was identified and deep retractors placed. The biceps tendon was identified and tenotomized. The anterior circumflex vessels were identified and coagulated. The subscapularis tendon was subperiosteally elevated and tagged for later repair. The rotator interval was released up to the level of the glenoid. The axillary nerve was identified and protected while the inferior capsule was released from the humeral neck. The shoulder was dislocated and osteophytes removed from the humeral head. The supraspinatus and infraspinatus tendons were chronically torn and retracted. The humeral head was cut in about 20 to 30 degrees of retroversion. A plate protector was placed and attention turned to the glenoid. Deep retractors were placed around the glenoid and any remaining labrum and soft tissue excised. The Arthrex VIP guide was then appropriately positioned for guidewire insertion in the preplanned position. The glenoid was then reamed and drilled followed by impaction of the MGS baseplate. Cortical screws were placed superiorly and inferiorly with locking screws placed anteriorly and posteriorly. The glenosphere was then secured with a set screw and attention turned back to the proximal humerus. The humeral canal was prepared in a standard fashion. Two drill holes were placed in the bicipital groove with 1 drill hole just medial to the lesser tuberosity. Two #5 FiberWire sutures were passed through the bicipital tuberosity and around the humeral stem prior to impaction. The humeral components were trialed and the final polyethylene impacted. Shoulder was again reduced and found to have excellent soft tissue tension with passive forward elevation to 160 degrees, external rotation of 45 degrees, internal rotation to the hip. The components were irrigated with normal saline. Betadine was placed around the components and again irrigated. 1 g of vancomycin was placed deep within the shoulder and the subscapularis repaired with a #5 FiberWire sutures. The deltopectoral interval was closed with Nurolon sutures and the skin closed in layers followed by an impervious bandage and a bolstered sling. Ms. Andre Blanca was then placed in an abduction sling and awakened from anesthesia having tolerated the procedure w (more content not included)... Normal [facility] XR Shoulder Left 2 VWon Patient Name: ANDRE BLANCA Diagnostic Radiology ACCESSION EXAM DATE/TIME PROCEDURE ORDERING PROVIDER [id number] 01/18/2022 12:12 EDT CR Shoulder 2+ Views MILTON, FAMILIA Left CPT code 28541 Reason For Exam (CR Shoulder 2+ Views Left) PACU post-op rTSA Report Left shoulder three views HISTORY: Postoperative Left shoulder prosthesis. The alignment is anatomic. No evidence of a fracture. Report Dictated on --- Final --- Dictating Physician: MD YUN MALAY Signed Date and Time: 01/18/2022 1:58 pm Signed by: MD YUN MALAY Transcribed Date and Time: 01/18/2022 1:59 [facility] Darrel Yun MD - 01/18/2022 Patient Name: ANDRE BLANCA Diagnostic Radiology ACCESSION EXAM DATE/TIME PROCEDURE ORDERING PROVIDER [id number] 01/18/2022 12:12 EDT CR Shoulder 2+ Views MILTON, FAMILIA Left CPT code 56380 Reason For Exam (CR Shoulder 2+ Views Left) PACU post-op rTSA Report Left shoulder three views HISTORY: Postoperative Left shoulder prosthesis. The alignment is anatomic. No evidence of a fracture. Report Dictated on --- Final --- Dictating Physician: MD YUN MALAY Signed Date and Time: 01/18/2022 1:58 pm Signed by: MD YUN MALAY Transcribed Date and Time: 01/18/2022 1:59 [facility] Work Phone: Radiology Study observation (narrative) [facility] Work Phone: XR Shoulder Left 2 VWOrdered By: Darrel Yun on 01-18-2022 [facility] Work Phone: Basophil percentageon 2021 Chloride [Moles/Vol] 106 mmol/L 98-[address] [facility] Work Phone: Glucose [Mass/Vol] 62 mg/dL 74-106 [facility] Work Phone: Potassium [Moles/Vol] 3.6 mmol/L 3.5-5.[address] [facility] Work Phone: Sodium [Moles/Vol] 140 mmol/L 136-145 [facility] Work Phone: WBC (Bld) [#/Vol] 6.5 10*3/uL 4.4-11.0 [facility] Work Phone: Blood erythrocytes count (nu mber/volume)on 01-17-2022 RBC (Bld) [#/Vol] 3.92 10*6/uL 4.2-5.4 [facility] Work Phone: Blood hemoglobin measurement (mass/volume)on 01-17-2022 Hemoglobin (Bld) [Mass/Vol] 11.2 g/dL 12.0-15.0 [facility] Work Phone: Blood platelet mean volumeon 01-17-2022 Platelet mean volume (Bld) [Entitic vol] 9.9 fL 6.2-12.0 [facility] Work Phone: Determination of erythrocyte mean corpuscular volume (MCV)on 01-17-2022 MCV (RBC) [Entitic vol] 89.5 fL 81-99 [facility] Work Phone: Hematocrit Auto (Bld) [Volum e fraction]on 01-17-2022 Hematocrit (Bld) [Volume fraction] 35.1 % 37-47 [facility] Work Phone: INR in Blood by Coagulation assayon 01-17-2022 INR Coag (Bld) [Relative time] 1.0 {INR} [facility] Work Phone: Laboratory - Chemistry and C hemistry - challengeon 01-17-2022 CO2 [Moles/Vol] 29.0 mmol/L 21.0-32.0 [facility] Work Phone: Urea nitrogen/Creatinine [Mass ratio] 11.8 mg/mg 10-20 [facility] Work Phone: Laboratory - Coagulationon 0 01-17-2022 PT Coag (PPP) [Time] 12.7 s 11.7-14.9 [facility] Work Phone: Laboratory - Hematology and Cell countson 01-17-2022 Erythrocyte distribution width (RBC) [Entitic vol] 45.7 fL 35.1-43.9 [facility] Work Phone: Erythrocyte distribution width (RBC) [Ratio] 14.1 % 11.6-14.6 [facility] Work Phone: MCH (RBC) [Entitic mass] 28.6 pg 27.0-32.0 [facility] Work Phone: MCHC Auto (RBC) [Mass/Vol]on 01-17-2022 MCHC (RBC) [Mass/Vol] 31.9 g/dL 32-36 [facility] Work Phone: No Panel Informationon 01-17 Estimated GFR (MDRD) Amer 110 mL/min >60 [facility] Work Phone: Comment on above: GFR Calc Estimated GFR (MDRD) Non-Af Amer 91 mL/min >60 [facility] Work Phone: Comment on above: Non- GFR Calc Platelets bldon 01-17-2022 Platelets (Bld) [#/Vol] 263 10*3/uL 150-450 [facility] Work Phone: Serum or plasma calcium carlie urement (mass/volume)on 01-17-2022 Calcium [Mass/Vol] 8.5 mg/dL 8.5-10.1 [facility] Work Phone: Serum or plasma creatinine m easurement (mass/volume)on 01-17-2022 Creatinine [Mass/Vol] 0.68 mg/dL 0.55-1.02 [facility] Work Phone: Comment on above: The validity of the calculated GFR & GFRAA in patients over 70 years has not been determined. Clinical correlation is essential. Serum or plasma urea nitroge n measurement (mass/volume)on 01-17-2022 Urea nitrogen [Mass/Vol] 8 mg/dL 7-18 [facility] Work Phone: Thin prep Papanicolaou smear with manual screeningon 01-17-2022 Thin prep Papanicolaou smear with manual screening 5 5-15 [facility] Work Phone: Vit D 25-OH, Totalon 022 Vit D 25-OH, Total 27 ng/mL Low 30-100 [facility] Comment on above: Result Comment: Ther apy is based on measurement of Total 25-OHD with the following classification levels: Less than 20 ng/mL: Indicative of Vit D deficiency 20-30 ng/mL: Suggests Vit D insufficiency Optimal: Greater than or equal to 30 ng/mL Test performed by [employer]omas[employer] Competitive Immunoassay, measuring Total Vitamin D, not individual fractions. Performed By: #### B 12 #### [facility] [employer] [facility] [address] [place], [place] #### [id number] #### [facility] [address] [place] [address] Vitamin B12on 01-06-2022 Cobalamin (Vitamin B12) [Mass/Vol] 355 pg/mL Normal 239-931 [facility] Comment on above: Performed By: #### B 12 #### [facility] [address] [place] [address] #### [id number] #### [facility] [address] [place] [address] Add on test from HISon 01-05 Add on test from HIS Rejected Normal [facility] Comment on above: Result Comment: No s pecimen available for addon. need ylt specimen for vit d. b12 has already been ordered. 01/05/2022 12:31 Performed By: #### A DDON #### [facility] [address] [place] [address] Add on test from HIS Rejected Normal [facility] Comment on above: Result Comment: need s a yellow top for vitamin D Performed By: #### A DDON #### [facility] [address] [place] [address] [address] Head or Brain w/o Contras ton 01-05-2022 CT Head or Brain w/o Contrast Patient Name: ANDRE BLANCA Computed Tomography ACCESSION EXAM DATE/TIME PROCEDURE ORDERING PROVIDER [id number] 01/04/2022 23:[address] Head or Brain w/o BRANDON YEAGER PETER J Contrast CPT code 07334 Reason For Exam (CT Head or Brain w/o Contrast) fall on thinner Report CLINICAL INFORMATION: Head pain after trauma. Fall. Patient on blood thinners. 3 mm axial cuts through the head are obtained without IV contrast. The examination is compared to a previous study dated 01/04/2022. FINDINGS: The ventricles are within normal limits in respect to their size and configuration. There is no evidence of mass or mass-effect. There are no abnormal intra- or extra-axial fluid collections. No hemorrhage is identified. Patchy low-attenuation is noted within the periventricular, deep, and subcortical white matter. There is no CT evidence of an acute infarct. Bone windows demonstrate no evidence of fracture and the visualized paranasal sinuses and mastoid air cells are clear. IMPRESSION: 1. Small-vessel ischemic changes, not unusual for patient age. 2. No intracranial hemorrhage. 3. No CT evidence of an acute intracranial process. Report Dictated on Final Dictated: 01/05/2022 5:34 am Dictating Physician: MD ODEN JEFFREY Signed Date and Time: 01/05/2022 5:35 am Signed by: MD ODEN JEFFREY Transcribed Date and Time: 01/05/2022 5:34 Normal [facility] Comp Panel with Mg Reflexon 01-05-2022 ALP [Catalytic activity/Vol] 143 U/L High 38-126 [facility] Comment on above: Performed By: #### C MP3M, TSH5, HEMDF, B12 #### [place] [address] [address] [place], [place] ALT [Catalytic activity/Vol] 12 U/L Normal 0-34 [facility] Comment on above: Result Comment: The ALT test is performed by an updated assay method. Please note that the reference intervals have been changed and are now sex specific. Performed By: #### C MP3M, TSH5, HEMDF, B12 #### [place] [address] [address] [place], [place] AST [Catalytic activity/Vol] 28 U/L Normal 15-46 [facility] Comment on above: Performed By: #### C MP3M, TSH5, HEMDF, B12 #### [place] [address] [address] [place], [place] Bilirubin [Mass/Vol] 0.2 mg/dL Normal 0.2-1.3 [facility] Comment on above: Performed By: #### C MP3M, TSH5, HEMDF, B12 #### [place] [address] [address] [place], [place] Calcium [Mass/Vol] 8.7 mg/dL Normal 8.4-10.4 [facility] Comment on above: Performed By: #### C MP3M, TSH5, HEMDF, B12 #### [place] [address] [address] [place], [place] Creatinine [Mass/Vol] 1.23 mg/dL Normal 0.52-1.25 [facility] Comment on above: Performed By: #### C MP3M, TSH5, HEMDF, B12 #### [place] [address] [address] [place], [place] GFR/1.73 sq M.predicted among blacks MDRD (S/P/Bld) [Vol rate/Area] 50.6 mL/min/{1.73_m2} Abnormal >60 [facility] Comment on above: Performed By: #### C MP3M, TSH5, HEMDF, B12 #### [place] [address] [address] [place], [place] GFR/1.73 sq M.predicted among non-blacks MDRD (S/P/Bld) [Vol rate/Area] 43.6 mL/min/{1.73_m2} Abnormal >60 [facility] Comment on above: Result Comment: KDIG O guidelines provide the following GFR categories: Stage GFR(ml/min/1.73 m2) Terms G1 >=90 Normal or high G2 60-89 Mildly decreased* G3a 45-59 Mildly to moderately decreased G3b 30-44 Moderately to severely decreased G4 15-29 Severely decreased G5 <15 Kidney failure *Relative to young adult level. In the absence of evidence of kidney damage, neither GFR category G1 nor G2 fulfill the criteria for CKD. The CKD-EPI equation is validated in individuals 18 years of age and older. Currently the best equation for estimating glomerular filtration rate (GFR) from serum creatinine in children is the Bedside Fuchs equation. It is less accurate in patients with extremes of muscle mass, restriction of dietary protein, ingestion of creatine, extra-renal metabolism of creatinine, or treatment with medications that affect renal tubular creatinine secretion. Performed By: #### C MP3M, TSH5, HEMDF, B12 #### [address] [address] Glucose [Mass/Vol] 116 mg/dL High 70-100 [facility] Comment on above: Performed By: #### C MP3M, TSH5, HEMDF, B12 #### [address] [address] Protein [Mass/Vol] 7.1 g/dL Normal 6.3-8.2 [facility] Comment on above: Performed By: #### C MP3M, TSH5, HEMDF, B12 #### [facility] [address] [place] [address] Urea nitrogen [Mass/Vol] 13 mg/dL Normal 9-20 [facility] Comment on above: Performed By: #### C MP3M, TSH5, HEMDF, B12 #### [address] [address] Anion gap [Moles/Vol] 11 mmol/L Normal 3-13 [facility] Comment on above: Performed By: #### C MP3M, TSH5, HEMDF, B12 #### [facility] [address] [place] [address] CO2 [Moles/Vol] 24 mmol/L Normal 22-30 [facility] Comment on above: Performed By: #### C MP3M, TSH5, HEMDF, B12 #### [facility] [address] [place] [address] Albumin [Mass/Vol] 3.9 g/dL Normal 3.5-5.0 [facility] Comment on above: Performed By: #### C MP3M, TSH5, HEMDF, B12 #### [place] [address] [place] [address] Potassium [Moles/Vol] 3.8 mmol/L Normal 3.5-5.1 [facility] Comment on above: Performed By: #### C MP3M, TSH5, HEMDF, B12 #### [address] [place] [address] Chloride [Moles/Vol] 103 mmol/L Normal 98-107 [facility] Comment on above: Performed By: #### C MP3M, TSH5, HEMDF, B12 #### [facility] [address] [place] [address] Sodium [Moles/Vol] 138 mmol/L Normal 135-145 [facility] Comment on above: Performed By: #### C MP3M, TSH5, HEMDF, B12 #### [facility] [address], [place] Echo Complete w/wo Contrasto n 01-05-2022 Echo Complete w/wo Contrast Patient Name: ANDRE BLANCA Ultrasound ACCESSION EXAM DATE/TIME PROCEDURE ORDERING PROVIDER [id number] 01/05/2022 11:40 EDT Echo Complete w/wo BEN COCHRAN Contrast Reason For Exam (Echo Complete w/wo Contrast) Recurrent syncope; labile BP Addendum TRANSTHORACIC ECHOCARDIOGRAM (AMENDED REPORT ) PATIENT: Andre Blanca STUDY DATE: 01/05/2022 Lila : 1950 AGE: 71 HT/WT: 170.2 cm (67 93 kg (204.6 in) lb) GENDER: F BP: 158 / 74 LOCATION: [facility] PATIENT Inpatient main STATUS: *ORDERING PHYSICIAN: * Ben Cochran MD *READING PHYSICIAN: * Aj, *BENDING ROLL HAND: * JaniceAllyhossein Daiana RUST ----- INDICATIONS: Recurrent syncope; labile bp. ----- CONCLUSIONS SUMMARY: 1. Left ventricle: Systolic function is normal by the biplane method of disks. The estimated ejection fraction is 65%. There are no regional wall motion abnormalities. Left ventricular diastolic function parameters are normal. 2. Mitral valve: There is mild-moderate, 1-2+ regurgitation. 3. Tricuspid valve: There is mild-moderate, 1-2+ regurgitation. 4. Pulmonary arteries: Systolic pressure is mildly increased, estimated to be 46 mm Hg. ----- STUDY DATA: Complete transthoracic echocardiogram. Procedure: Image quality was fair. The study was technically limited due to poor acoustic window availability, body habitus, respiratory interference, small rib spaces, and off axis. M-mode, complete 2D, complete spectral Doppler, and color flow Doppler images were acquired and archived for permanent storage and are available for subsequent review. Study status: Routine. Patient status: Inpatient. ----- FINDINGS Ultrasound Addendum LEFT VENTRICLE: The cavity size is normal. Wall thickness is normal. Systolic function is normal by the biplane method of disks. The estimated ejection fraction is 65%. There are no regional wall motion abnormalities. Left ventricular diastolic function parameters are normal. RIGHT VENTRICLE: The cavity size is normal. Systolic function is normal. VENTRICULAR SEPTUM: There is no evidence of a ventricular septal defect. LEFT ATRIUM: The atrium is normal in size. RIGHT ATRIUM: The atrium is normal in size. ATRIAL SEPTUM: Color Doppler shows no shunt. MITRAL VALVE: Structurally normal valve. Doppler: There is mild-moderate, 1-2+ regurgitation. AORTIC VALVE: Structurally normal valve. Trileaflet. Doppler: There is no significant regurgitation. The peak systolic gradient is 11 mm Hg. The peak systolic velocity is 1.6 m/sec. TRICUSPID VALVE: Structurally normal valve. Doppler: There is mild-moderate, 1-2+ regurgitation. PULMONIC VALVE: Structurally normal valve. Doppler: There is trivial, less than 1+ regurgitation. AORTA: The aorta is mildly dilated. PULMONARY ARTERY: Systolic pressure is mildly increased, estimated to be 46 mm Hg. Main pulmonary artery: Normal. PERICARDIUM: There is no pericardial effusion. SYSTEMIC VEINS: Inferior vena cava: The vessel is normal. The IVC collapses by greater than 50% with inspiration. ----- Measurements Value Reference Aortic root ID 3.0 cm <4.2 Aortic root ID, STJ, ED 2.3 cm 2.0 - 3.2 Aortic root ID/bsa, STJ, ED 1.1 cm/m^2 1.1 - 1.9 Value Reference Ascending aorta ID, A-P, S 3.4 cm Ascending aorta ID/bsa, A-P, S 1.7 cm/m^2 Left ventricle Value Reference LV ID, ED 4.8 cm 3.8 - 5.2 LV ID, ES 3.3 cm 2.2 - 3.5 LV ID/bsa, ED 2.4 cm/m^2 2.3 - 3.1 LV ID/bsa, ES 1.6 cm/m^2 1.3 - 2.1 LV PW thickness, ED 0.9 cm 0.6 - 0.9 LV PW/LV ID ratio, ED 0.19 LV wall mass 148 g 66 - 150 LV wall mass/bsa 72 g/m^2 44 - 88 Stroke volume/bsa, 1-p A2C 22.8 ml/m^2 LV end-diastolic volume, 1-p A4C 64 ml 48 - 140 LV end-systolic volume, 1-p A4C 23 ml 12 - 60 LV end-diastolic volume, 2-p 68 ml 46 - 106 LV end-systolic volume, 2-p 24 ml 14 - 42 LV ejection fraction, 2-p 65 % 54 - 74 LV E/e', lateral 6.3 LV E/e', medial 7.4 LV E/e', average 6.8 Ventricular septum Value Reference Ultrasound Addendum IVS thickness, ED 0.9 cm 0.6 - 0.9 LVOT Value Reference LVOT ID, A-P 1.7 cm LVOT mean velocity, S 1 m/sec LVOT peak gradient, S 9 mm Hg Stroke volume (SV), LVOT DP 67 ml Stroke index (SV/bsa), LVOT DP 33 ml/m^2 Aortic valve Value Reference Aortic valve peak velocity, S 1.6 m/sec Aortic peak gradient, S 11 mm Hg (more content not included)... Normal [facility] Hemogram w/ Autodiffon 01-05 Abs Baso Cnt 0.1 10*3/uL Normal 0.0-0.2 [facility] Comment on above: Performed By: #### C MP3M, TSH5, HEMDF, B12 #### [facility] [address], [place] Abs Neutrophile Cnt 6.4 10*3/uL Normal 1.8-7.0 [facility] Comment on above: Performed By: #### C MP3M, TSH5, HEMDF, B12 #### [address], [place] Basophils/100 WBC (Bld) 1.1 % Normal 0.0-2.0 [facility] Comment on above: Performed By: #### C MP3M, TSH5, HEMDF, B12 #### [address] [address] [place], [place] Eosinophils (Bld) [#/Vol] 0.5 10*3/uL Normal 0.0-0.5 [facility] Comment on above: Performed By: #### C MP3M, TSH5, HEMDF, B12 #### [place] [place], [place] Eosinophils/100 WBC (Bld) 4.9 % Normal 1.0-6.0 [facility] Comment on above: Performed By: #### C MP3M, TSH5, HEMDF, B12 #### [address] [place], [place] Erythrocyte distribution width (RBC) [Ratio] 15.1 % High 11.5-14.5 [facility] Comment on above: Performed By: #### C MP3M, TSH5, HEMDF, B12 #### [address] [address] [place], [place] Granulocytes/100 WBC (Bld) 62.5 % Normal 40.0-80.0 [facility] Comment on above: Performed By: #### C MP3M, TSH5, HEMDF, B12 #### [address] [address] [place], [place] Hematocrit (Bld) [Volume fraction] 38.6 % Normal 35.0-47.0 [facility] Comment on above: Performed By: #### C MP3M, TSH5, HEMDF, B12 #### [address] [address] [place], [place] Hemoglobin (Bld) [Mass/Vol] 12.5 g/dL Normal 11.7-16.0 [facility] Comment on above: Performed By: #### C MP3M, TSH5, HEMDF, B12 #### [address] [address] [place], [place] Lymphocytes (Bld) [#/Vol] 2.5 10*3/uL Normal 1.0-4.3 [facility] Comment on above: Performed By: #### C MP3M, TSH5, HEMDF, B12 #### [address] Lymphocytes/100 WBC (Bld) 24.5 % Normal 20.0-40.0 [facility] Comment on above: Performed By: #### C MP3M, TSH5, HEMDF, B12 #### [address] MCH (RBC) [Entitic mass] 28.1 pg Normal 26.0-34.0 [facility] Comment on above: Performed By: #### C MP3M, TSH5, HEMDF, B12 #### [address] MCHC 32.3 % Normal 32.0-36.0 [facility] Comment on above: Performed By: #### C MP3M, TSH5, HEMDF, B12 #### [address] MCV (RBC) [Entitic vol] 87.1 fL Normal 79.0-98.0 [facility] Comment on above: Performed By: #### C MP3M, TSH5, HEMDF, B12 #### [address] Monocytes (Bld) [#/Vol] 0.7 10*3/uL Normal 0.0-0.8 [facility] Comment on above: Performed By: #### C MP3M, TSH5, HEMDF, B12 #### [facility] [address], [place] Monocytes/100 WBC (Bld) 7.0 % Normal 2.0-10.0 [facility] Comment on above: Performed By: #### C MP3M, TSH5, HEMDF, B12 #### [place], [place] Platelet mean volume (Bld) [Entitic vol] 8.2 fL Normal 7.4-12.4 [facility] Comment on above: Result Comment: MPV is a calculated measurement using platelet volume ratio. Performed By: #### C MP3M, TSH5, HEMDF, B12 #### [place], [place] Platelets (Bld) [#/Vol] 292 10*3/uL Normal 140-440 [facility] Comment on above: Performed By: #### C MP3M, TSH5, HEMDF, B12 #### [place] [place], [place] RBC (Bld) [#/Vol] 4.43 10*6/uL Normal 3.80-5.20 [facility] Comment on above: Performed By: #### C MP3M, TSH5, HEMDF, B12 #### [place] [place], [place] WBC (Bld) [#/Vol] 10.3 10*3/uL Normal 3.6-10.7 [facility] Comment on above: Performed By: #### C MP3M, TSH5, HEMDF, B12 #### [place], [place] SARS-CoV-2 Antigenon 022 SARS-CoV-2 Antigen Negative Normal Negative [facility] Comment on above: Result Comment: A negative result does not rule out the possibility of SARS-CoV-2 infection. NAAT-based methods should be considered for symptomatic patients presenting greater than seven days after onset of symptoms. Method: Lateral flow immunoassay. Fact sheets for healthcare providers and patients can be found at the following sites: https://www.[facility].gov/media/071384/download https://www.[employer].gov/media/990159/download Performed By: #### C OVAG #### [facility] [employer] [facility] [address], [place] Thyroid Stim. Hormoneon 12-13 Thyroid Stim. Hormone < 0.015 Low 0.465-4.680 [facility] Comment on above: Performed By: #### C MP3M, TSH5, HEMDF, B12 #### [facility] [employer] [facility] [address], [place] Vit D 25-OH, Totalon 022 Vit D 25-OH, Total 42 ng/mL Normal 30-100 [facility] Comment on above: Result Comment: Ther apy is based on measurement of Total 25-OHD with the following classification levels: Less than 20 ng/mL: Indicative of Vit D deficiency 20-30 ng/mL: Suggests Vit D insufficiency Optimal: Greater than or equal to 30 ng/mL Test performed by [employer] Competitive Immunoassay, measuring Total Vitamin D, not individual fractions. Performed By: #### V D25H ####[facility] [employer] [id number] [place] [address] Vitamin B12on 01-05-2022 Cobalamin (Vitamin B12) [Mass/Vol] 400 pg/mL Normal 239-931 [facility] Comment on above: Performed By: #### C MP3M, TSH5, HEMDF, B12 ####[facility] [employer] [id number] [place], [place] Basic Metabolic Panelon 12-13 Anion gap [Moles/Vol] 7 mmol/L Normal 3-13 [facility] Comment on above: Performed By: #### T ROPN, LACT3, PT/AP, ETOH4, BMP3, HEMOG ####[facility] [employer] [id number] [place], [place] Calcium [Mass/Vol] 8.6 mg/dL Normal 8.4-10.4 [facility] Comment on above: Performed By: #### T ROPN, LACT3, PT/AP, ETOH4, BMP3, HEMOG ####[id number] [place], [place] CO2 [Moles/Vol] 26 mmol/L Normal 22-30 [facility] Comment on above: Performed By: #### T ROPN, LACT3, PT/AP, ETOH4, BMP3, HEMOG ####[id number] [place], [place] Glucose [Mass/Vol] 104 mg/dL High 70-100 [facility] Comment on above: Performed By: #### T ROPN, LACT3, PT/AP, ETOH4, BMP3, HEMOG ####[id number] [place], [place] Urea nitrogen [Mass/Vol] 11 mg/dL Normal 9-20 [facility] Comment on above: Performed By: #### T ROPN, LACT3, PT/AP, ETOH4, BMP3, HEMOG ####[id number] [place], [place] Creatinine [Mass/Vol] 1.12 mg/dL Normal 0.52-1.25 [facility] Comment on above: Performed By: #### T ROPN, LACT3, PT/AP, ETOH4, BMP3, HEMOG ####[id number] [place], [place] GFR/1.73 sq M.predicted among blacks MDRD (S/P/Bld) [Vol rate/Area] 56.6 mL/min/{1.73_m2} Abnormal >60 [facility] Comment on above: Performed By: #### T ROPN, LACT3, PT/AP, ETOH4, BMP3, HEMOG ####[id number] [place], [place] GFR/1.73 sq M.predicted among non-blacks MDRD (S/P/Bld) [Vol rate/Area] 48.9 mL/min/{1.73_m2} Abnormal >60 [facility] Comment on above: Result Comment: KDIG O guidelines provide the following GFR categories: Stage GFR(ml/min/1.73 m2) Terms G1 >=90 Normal or high G2 60-89 Mildly decreased* G3a 45-59 Mildly to moderately decreased G3b 30-44 Moderately to severely decreased G4 15-29 Severely decreased G5 <15 Kidney failure *Relative to young adult level. In the absence of evidence of kidney damage, neither GFR category G1 nor G2 fulfill the criteria for CKD. The CKD-EPI equation is validated in individuals 18 years of age and older. Currently the best equation for estimating glomerular filtration rate (GFR) from serum creatinine in children is the Bedside Fuchs equation. It is less accurate in patients with extremes of muscle mass, restriction of dietary protein, ingestion of creatine, extra-renal metabolism of creatinine, or treatment with medications that affect renal tubular creatinine secretion. Performed By: #### T ROPN, LACT3, PT/AP, ETOH4, BMP3, HEMOG ####[facility] [employer] [id number] [place], [place] Chloride [Moles/Vol] 104 mmol/L Normal 98-107 [facility] Comment on above: Performed By: #### T ROPN, LACT3, PT/AP, ETOH4, BMP3, HEMOG ####[id number] [place], [place] Potassium [Moles/Vol] 3.7 mmol/L Normal 3.5-5.1 [facility] Comment on above: Result Comment: Slig htly hemolysed, interpret with caution. Performed By: #### T ROPN, LACT3, PT/AP, ETOH4, BMP3, HEMOG ####[facility] [employer] [id number] [place], [place] Sodium [Moles/Vol] 137 mmol/L Normal 135-145 [facility] Comment on above: Performed By: #### T ROPN, LACT3, PT/AP, ETOH4, BMP3, HEMOG ####[id number] [place], [place] CR Chest Portableon 01-05-20 22 CR Chest Portable Patient Name: ANDRE BLANCA Diagnostic Radiology ACCESSION EXAM DATE/TIME PROCEDURE ORDERING PROVIDER [id number] 01/04/2022 11:28 EDT CR Chest Portable JESSIKA COLLINS CPT code 11419 Reason For Exam (CR Chest Portable) chest pain s/p fall on thinners Report Examination: AP portable chest Clinical Indication: chest pain s/p fall on thinners Comparison: None Findings: Lungs appear normally inflated. There is moderate elevation the right hemidiaphragm. There is mild diffuse interstitial disease which can be seen with pulmonary edema, interstitial pneumonia or other acute or chronic interstitial process. No focal consolidation or effusion. There is no focal consolidation, effusion, or pulmonary edema identified. Heart size at the upper limits of normal. Degenerative changes shoulders and spine. Impression: 1. Moderate elevation the right hemidiaphragm. 2. Diffuse interstitial disease, nonspecific. Findings can be seen with pulmonary edema, interstitial pneumonia or other acute or chronic interstitial process. No focal consolidation or effusion. Report Dictated on Final Dictated: 01/04/2022 11:35 am Dictating Physician: MD ALONSO ANTHONY J Signed Date and Time: 01/04/2022 11:36 am Signed by: MD ALONSO ANTHONY J Transcribed Date and Time: 01/04/2022 11:35 [facility] CR Elbow 3+ Views Righton CR Elbow 3+ Views Right Patient Name: ANDRE BLANCA Diagnostic Radiology ACCESSION EXAM DATE/TIME PROCEDURE ORDERING PROVIDER [id number] 01/04/2022 11:52 EDT CR Elbow 3+ Views Right [id number] GERONIMO ESPINOSA CPT code 97128 Reason For Exam (CR Elbow 3+ Views Right) Fall, pain Report Examination: Right elbow Clinical Indication: Fall, pain Comparison: None Findings: AP, lateral, and oblique views of the right elbow demonstrate no cortical or trabecular irregularity to suggest fracture. Osteopenia. Bones are in normal anatomic alignment. There is no evidence for radiopaque foreign body or productive/erosive arthropathy. No joint effusion is identified. The visualized soft tissues are within normal limits. IV tubing overlies the antecubital fossa. Impression: No evidence of fracture, dislocation, or other acute abnormality of the right elbow. Report Dictated on Final Dictated: 01/04/2022 12:06 pm Dictating Physician: MD ALONSO ANTHONY J Signed Date and Time: 01/04/2022 12:06 pm Signed by: MD ALONSO ANTHONY J Transcribed Date and Time: 01/04/2022 12:06 Normal [facility] CR Femur 2+ Views Righton CR Femur 2+ Views Right Patient Name: ANDRE BLANCA Diagnostic Radiology ACCESSION EXAM DATE/TIME PROCEDURE ORDERING PROVIDER [id number] 01/04/2022 11:52 EDT CR Femur 2+ Views Right [id number] GERONIMO ESPINOSA CPT code 04136 Reason For Exam (CR Femur 2+ Views Right n) r hip pain s/p fall Report Examination: Right femur Clinical Indication: Pain after fall Comparison: None Findings: Four views of the right femur demonstrate no gross evidence of fracture. Mild osteopenia. There is no evidence of periostitis. Visualized soft tissues are within normal limits. There is mild right hip and moderate to advanced right knee osteoarthropathy. Small cam seen along the femoral head neck junction proximally. Small suprapatellar knee joint effusion. Impression: Osteopenia. No evidence of fracture or other acute abnormality of the right femur. Advanced osteoarthropathy right knee. Report Dictated on Final Dictated: 01/04/2022 12:05 pm Dictating Physician: MD ALONSO ANTHONY J Signed Date and Time: 01/04/2022 12:06 pm Signed by: MD ALONSO ANTHONY J Transcribed Date and Time: 01/04/2022 12:05 Normal [facility] CR Pelvis 1 or 2 Viewson CR Pelvis 1 or 2 Views Patient Name: ANDRE BLANCA Diagnostic Radiology ACCESSION EXAM DATE/TIME PROCEDURE ORDERING PROVIDER [id number] 01/04/2022 11:28 EDT CR Pelvis 1 or 2 Views JESSIKA COLLINS CPT code 53139 Reason For Exam (CR Pelvis 1 or 2 Views) pelvic pain s/p fall on thinners Report Examination: Pelvis Clinical Indication: pelvic pain s/p fall on thinners Comparison: None Findings: Single AP view of the pelvis demonstrates no cortical or trabecular irregularity to suggest a fracture. Patient is slightly rotated. Normal bone mineralization. Bones appear grossly normal anatomic alignment. There is mild hip joint space narrowing and osteoarthropathy. Mild degenerative sclerosis SI joints and pubis. There is at least moderate spondylosis in the lower lumbar spine. Impression: No evidence of fracture or subluxation of the pelvis. Report Dictated on Final Dictated: 01/04/2022 11:34 am Dictating Physician: MD ALONSO ANTHONY J Signed Date and Time: 01/04/2022 11:35 am Signed by: MD ALONSO ANTHONY J Transcribed Date and Time: 01/04/2022 11:34 Normal [facility] CR Spine Cervical 2 or 3 Vie wson 01-04-2022 CR Spine Cervical 2 or 3 Views Patient Name: ANDRE BLANCA Diagnostic Radiology ACCESSION EXAM DATE/TIME PROCEDURE ORDERING PROVIDER [id number] 01/04/2022 13:47 EDT CR Spine Cervical 2 or 3 [id number] -GERONIMO RODRIGUEZ Views CPT code 28525 Reason For Exam (CR Spine Cervical 2 or 3 Views) persistent midline c-spine pain with negative CT Report CERVICAL SPINE WITH FLEXION AND EXTENSION: Indication: Midline neck pain. Views: Lateral neutral, flexion and extension views of cervical spine were obtained. Comparison: None Findings: Evaluation of the cervicothoracic region is limited by overlying soft tissues. Alignment and positioning of the cervical vertebra is anatomic on lateral projection. Atlantodens interval is maintained. There is disc space narrowing and anterior endplate osteophytes at C5-C6 and C6-C7. There is no fracture or malalignment of the cervical vertebrae. There is no subluxation. The retropharyngeal and retrotracheal soft tissues are unremarkable. IMPRESSION: Inferior cervical degenerative spondylosis. No vertebral subluxation. Report Dictated on Final Dictated: 01/04/2022 2:05 pm Dictating Physician: GIANA MEJIA DO, I Signed Date and Time: 01/04/2022 2:07 pm Signed by: GIANA MEJIA DO, I Transcribed Date and Time: 01/04/2022 2:[address] [facility] [address] Head or Brain w/o Contras ton 01-04-2022 CT Head or Brain w/o Contrast Patient Name: ANDRE BLANCA Computed Tomography ACCESSION EXAM DATE/TIME PROCEDURE ORDERING PROVIDER [id number] 01/04/2022 11:[address] Head or Brain w/o JESSIKA COLLINS Contrast CPT code 66384 Reason For Exam (CT Head or Brain w/o Contrast) fall on thinners Report Examination: CT Head Clinical Information: fall on thinners Comparison: None Findings: Serial axial [address] images were obtained through the skull without intravenous contrast. Coronal, sagittal, and axial images were reconstructed. The ventricular system and cortical sulci are somewhat prominent in size consistent with mild diffuse cerebral volume loss. There is moderate subcortical and periventricular white matter hypodensity which is nonspecific and may represent chronic small vessel ischemic disease in a patient of this age. Zazueta white differentiation is well preserved. There is no evidence of gross mass, hemorrhage or edema. No areas of mass-effect or infarct are seen. Sinuses appear well pneumatized. Impression: Mild diffuse cerebral volume loss and moderate nonspecific white matter changes likely representing chronic small vessel ischemic disease in a patient of this age. No evidence of acute intracranial process. Report Dictated on Final Dictated: 01/04/2022 11:54 am Dictating Physician: MD ALONSO ANTHONY J Signed Date and Time: 01/04/2022 11:56 am Signed by: MD ALONSO ANTHONY J Transcribed Date and Time: 01/04/2022 11:[address] [facility] [address] Spine Cervical w/o Contra ston 01-04-2022 CT Spine Cervical w/o Contrast Patient Name: ANDRE BLANCA Computed Tomography ACCESSION EXAM DATE/TIME PROCEDURE ORDERING PROVIDER [id number] 01/04/2022 11:[address] Spine Cervical w/o JESSIKA COLLINS Contrast CPT code 25365 Reason For Exam (CT Spine Cervical w/o Contrast) fall on thinners Report Examination: CT cervical spine Clinical Indication: fall on thinners Comparison: None Findings: Serial axial [address] images were obtained from the skull base through the cervical spine without intravenous contrast. Sagittal, axial, and coronal images were then reconstructed. Osteopenia. No gross evidence of acute fracture. Minimal 2 mm anterolisthesis C4-C5. Mild cervical thoracic curvature which could be positional or could represent a mild scoliosis. Prevertebral soft tissues are normal. Degenerative sclerosis craniocervical and atlantoaxial articulations. Small C1-C2 osteophytes. Mild loss of vertebral height C6 and C7. There is moderate loss of disc height C5-C6 and C6-C7 with endplate degenerative sclerosis and small endplate osteophytes. Mild facet degenerative sclerosis and hypertrophy. No significant spinal canal stenosis. Mild neuroforaminal narrowing most pronounced on the right at C6-C7. Small subcentimeter lymph nodes within the upper mediastinum, largest measures 1.1 x 0.7 cm. No evidence of apical pneumothorax. There is some centrilobular pulmonary cystic changes. Impression: 1. Osteopenia. 2. Moderate cervical spondylosis most pronounced at C5-C6 and C6-C7. 3. Mild vertebral height loss C6 and C7 but no gross evidence of fracture line. This could be congenital or age-indeterminate mild compression. Computed Tomography Report Report Dictated on Final Dictated: 01/04/2022 11:56 am Dictating Physician: MD ALONSO ANTHONY J Signed Date and Time: 01/04/2022 12:03 pm Signed by: MD ALONSO ANTHONY J Transcribed Date and Time: 01/04/2022 11:56 Normal [facility] ED Provider Noteon ED Provider Note [facility] EMERGENCY DEPARTMENT ENCOUNTER Pt Name: Andre Blanca Birthdate 1950 Date of evaluation: 01/04/2022 Provider: DELIA ORNELAS MD CHIEF COMPLAINT No chief complaint on file. HISTORY OF PRESENT ILLNESS (Location/Symptom, Timing/Onset, Context/Setting, Quality, Duration, Modifying Factors, Severity) Note limiting factors. I wore a KN95 and surgical mask for the entirety of this encounter. HPI Andre Blanca is a 71 y.o. female who presents to the emergency department complaining of a fall. The patient was brought by EMS. A surgical team was called once the patient presented to the emergency department. I was physically present prior to the patient being transferred from the EMS gurney to the emergency department cart. She had not had a cervical collar placed. The patient herself complains of pain to the back of her head, right elbow, right hip. She states that she went to stand up and got dizzy. She fell backwards striking her head. When asked her past history she states that she has a history of fibromyalgia, COPD. She notes that she also had a stroke in 2013 and is on Plavix for that. Nursing Notes were reviewed. REVIEW OF SYSTEMS (2+ for level 4; 10+ for level 5) Review of Systems Constitutional: Negative for activity change, chills and fever. HENT: Negative for congestion, ear pain and sore throat. Eyes: Negative for pain and redness. Respiratory: Negative for cough, chest tightness and shortness of breath. Cardiovascular: Negative for chest pain and palpitations. Gastrointestinal: Negative for abdominal pain, nausea and vomiting. Genitourinary: Negative for dysuria, flank pain and urgency. Musculoskeletal: Positive for arthralgias and joint swelling. Negative for myalgias. Skin: Negative for rash. Neurological: Positive for headaches. Negative for dizziness. Psychiatric/Behavioral : Negative for confusion. The patient is not nervous/anxious. PAST MEDICAL HISTORY Past Medical History: Diagnosis Date ? Bipolar 1 disorder (HCC) ? Cerebral artery occlusion with cerebral infarction (HCC) ? COPD (chronic obstructive pulmonary disease) (HCC) ? Depression ? DVT (deep venous thrombosis) (HCC) ? Fibromyalgia ? Hyperlipidemia ? Hypothyroid ? IBS (irritable bowel syndrome) ? MDD (major depressive disorder) ? RAULITO (obstructive sleep apnea) ? Syncope ? TIA (transient ischemic attack) SURGICAL HISTORY Past Surgical History: Procedure Laterality Date ? ARM SURGERY Right ? CHOLECYSTECTOMY ? HYSTERECTOMY CURRENT MEDICATIONS Previous Medications ADVAIR DISKUS 500-50 MCG/DOSE DISKUS INHALER ALBUTEROL SULFATE HFA (VENTOLIN HFA) 108 (90 BASE) MCG/ACT INHALER Inhale 2 puffs into the lungs every 4 hours as needed for Wheezing AMITRIPTYLINE (ELAVIL) 100 MG TABLET Take 25 mg by mouth nightly BUDESONIDE-FORMOTEROL (SYMBICORT) 160-4.5 MCG/ACT AERO Inhale 1 puff into the lungs 2 times daily BUSPIRONE (BUSPAR) 10 MG TABLET Take 10 mg by mouth 3 times daily CARBAMAZEPINE (TEGRETOL) 200 MG TABLET CHOLECALCIFEROL (VITAMIN D3) 1.25 MG (95848 UT) CAPS Take by mouth once a week CLOPIDOGREL (PLAVIX) 75 MG TABLET Take 75 mg by mouth daily DICYCLOMINE (BENTYL) 10 MG CAPSULE FLUOXETINE (PROZAC) 20 MG CAPSULE Take 20 mg by mouth daily LEVOTHYROXINE (SYNTHROID) 125 MCG TABLET Take 175 mcg by mouth Daily LEVOTHYROXINE (SYNTHROID) 200 MCG TABLET MELATONIN 3 MG TABS TABLET Take 3 mg by mouth daily 2 tabs daily METOCLOPRAMIDE (REGLAN) 5 MG TABLET MIDODRINE (PROAMATINE) 5 MG TABLET Take 5 mg by mouth 3 times daily ONDANSETRON (ZOFRAN) 4 MG TABLET Take 4 mg by mouth every 12 hours as needed for Nausea or Vomiting PANTOPRAZOLE (PROTONIX) 40 MG TABLET Take 40 mg by mouth 2 times daily PRAVASTATIN (PRAVACHOL) 40 MG TABLET Take 40 mg by mouth daily PREGABALIN (LYRICA) 150 MG CAPSULE Take 150 mg by mouth 2 times daily. RISPERIDONE (RISPERDAL) 0.5 MG TABLET TIZANIDINE (ZANAFLEX) 2 MG TABLET TRAMADOL (ULTRAM) 50 MG TABLET Take 50 mg by mouth every 8 hours as needed for Pain. TRAZODONE (DESYREL) 50 MG TABLET VENLAFAXINE (EFFEXOR XR) 37.5 MG EXTENDED RELEASE CAPSULE ALLERGIES Asa [aspirin], Butorphanol, Hydrocodone, Hydromorphone, Ibuprofen, Other, Oxycodone, Prochlorperazine, Sulfa antibiotics, Sulfamethoxazole-trime thoprim, and Sumatriptan FAMILY HISTORY Family History Problem Relation Age of Onset ? Alcohol Abuse Mother ? Emphysema Father SOCIAL HISTORY Social History Socioeconomic History ? Marital status: Spouse name: Not on file ? Number of children: Not on file ? Years of education: Not on file ? Highest education level: Not on file Occupational History ? Not on file Tobacco Use ? Smoking status: Former Smoker Quit date: 2011 Years since quittin.4 ? Smokeless tobacco: Never Used Vaping Use ? Vaping Use: Never used Substance and Sexual Activity ? Alcohol use: (more content not included)... Normal [facility] Ethanol Serum/Plasmaon 01-04 Ethanol-Serum/Plasma < 0.010 Normal 0.000-0.010 [facility] Comment on above: Result Comment: NOTE : This result is for medical treatment only. Analysis performed using non-forensic procedures. Performed By: #### T ROPN, LACT3, PT/AP, ETOH4, BMP3, HEMOG ####[address] Hemogramon 01-04-2022 Erythrocyte distribution width (RBC) [Ratio] 15.1 % High 11.5-14.5 [facility] Comment on above: Performed By: #### T ROPN, LACT3, PT/AP, ETOH4, BMP3, HEMOG ####[address] Hematocrit (Bld) [Volume fraction] 36.8 % Normal 35.0-47.0 [facility] Comment on above: Performed By: #### T ROPN, LACT3, PT/AP, ETOH4, BMP3, HEMOG ####[address] Hemoglobin (Bld) [Mass/Vol] 12.0 g/dL Normal 11.7-16.0 [facility] Comment on above: Performed By: #### T ROPN, LACT3, PT/AP, ETOH4, BMP3, HEMOG ####[address] MCH (RBC) [Entitic mass] 28.3 pg Normal 26.0-34.0 [facility] Comment on above: Performed By: #### T ROPN, LACT3, PT/AP, ETOH4, BMP3, HEMOG ####[address] MCHC 32.5 % Normal 32.0-36.0 [facility] Comment on above: Performed By: #### T ROPN, LACT3, PT/AP, ETOH4, BMP3, HEMOG ####[id number] [place], [place] MCV (RBC) [Entitic vol] 87.0 fL Normal 79.0-98.0 [facility] Comment on above: Performed By: #### T ROPN, LACT3, PT/AP, ETOH4, BMP3, HEMOG ####[id number] [place], [place] Platelet mean volume (Bld) [Entitic vol] 8.0 fL Normal 7.4-12.4 [facility] Comment on above: Result Comment: MPV is a calculated measurement using platelet volume ratio. Performed By: #### T ROPN, LACT3, PT/AP, ETOH4, BMP3, HEMOG ####[address] Platelets (Bld) [#/Vol] 303 10*3/uL Normal 140-440 [facility] Comment on above: Performed By: #### T ROPN, LACT3, PT/AP, ETOH4, BMP3, HEMOG ####[id number] [place], [place] RBC (Bld) [#/Vol] 4.23 10*6/uL Normal 3.80-5.20 [facility] Comment on above: Performed By: #### T ROPN, LACT3, PT/AP, ETOH4, BMP3, HEMOG ####[id number] [place], [place] WBC (Bld) [#/Vol] 6.4 10*3/uL Normal 3.6-10.7 [facility] Comment on above: Performed By: #### T ROPN, LACT3, PT/AP, ETOH4, BMP3, HEMOG ####[id number] [place], [place] Lactic Acidon 01-04-2022 Lactate [Moles/Vol] 1.9 mmol/L Normal 0.7-2.0 [facility] Comment on above: Performed By: #### T ROPN, LACT3, PT/AP, ETOH4, BMP3, HEMOG ####[id number] [place], [place] Protime AND APTTon aPTT Coag (Bld) [Time] 28.5 s Normal 20.0-30.5 [facility] Comment on above: Result Comment: NOTE : The therapeutic time for Heparin anticoagulation, based on Xa activity inhibition, is an APTT of 46-80 seconds. Performed By: #### T ROPN, LACT3, PT/AP, ETOH4, BMP3, HEMOG ####[id number] [place], [place] INR 1.1 Normal 0.9-1.1 [facility] Comment on above: Result Comment: Que mmended Anticoagulant Therapy: SEE BELOW ----- INR of 2.0 - 3.0 : - Prophylaxis of Venous Thrombosis (high-risk surgery) - Treatment of Venous Thrombosis - Treatment of Pulmonary Embolism (Includes tissue heart valves, Acute Myocardial Infarction to prevent systemic embolism, Valvular Heart Disease, and Atrial Fibrillation) ----- INR of 2.5 - 3.5 : - Mechanical Prosthetic Valves (high risk) - If oral anticoagulant therapy is used to prevent Myocardial Infarction Performed By: #### T ROPN, LACT3, PT/AP, ETOH4, BMP3, HEMOG ####[id number] [place], [place] PT Coag (PPP) [Time] 11.4 s Normal 9.0-12.0 [facility] Comment on above: Result Comment: . Performed By: #### T ROPN, LACT3, PT/AP, ETOH4, BMP3, HEMOG ####[id number] [place], [place] TS GELon 01-04-2022 TS GEL ABO Group: O Rh, Gel: POS Antibody Screen Gel: NEG Normal [facility] Comment on above: Performed By: #### T SGL ####[facility] Troponin Ion 01-04-2022 Troponin I.cardiac [Mass/Vol] ng/mL Normal 0.000-0.034 [facility] [employer] [facility] Comment on above: Result Comment: . Performed By: #### T ROPN, LACT3, PT/AP, ETOH4, BMP3, HEMOG ####[facility] [employer] [id number] [place] [address] [address] Up Ext w/o Contrast Lefto n 12-27-2021 CT Up Ext w/o Contrast Left Patient Name: ANDRE BLANCA Computed Tomography ACCESSION EXAM DATE/TIME PROCEDURE ORDERING PROVIDER [id number] 12/27/2021 14:[address] Up Ext w/o Contrast MD LELIA, KIM Hager Left CPT code 74927 Reason For Exam (CT Up Ext w/o Contrast Left) Primary osteoarthritis, unspecified shoulder Report Examination CT Up Ext w/o Contrast Left Clinical: Primary osteoarthritis, unspecified shoulder Comparison: None Findings: Serial axial [address] images obtained through the left upper extremity, shoulder and scapula without contrast. Coronal, axial and axial images reconstructed. Age-appropriate bone mineralization. No evidence of fracture or dislocation. There is thoracic scoliosis apex leftward with moderate spondylosis in the lower cervical spine. Acromioclavicular joint demonstrates mild osteoarthropathy. Small osteophytes. Small subchondral cyst distal clavicle. Type III acromion with anterior hook causes moderate impingement. Gross preservation of the acromiohumeral and coracohumeral interval. Normal deltoid volume. Tiny shoulder joint effusion. Advanced glenohumeral cartilage thinning posteriorly. Mild humeral subluxation posteriorly. Degenerative sclerosis with bulky osteophytes. Subchondral cysts, likely enthesopathy at the supraspinatus insertion anteriorly. Several nonspecific lymph nodes in the left axilla. The largest measures 2.6 x 0.7 cm. Impression: 1. Advanced glenohumeral and mild to moderate acromial clavicular osteoarthropathy. Moderate acromial impingement. Computed Tomography Report Report Dictated on Final Dictating Physician: MD ALONSO ANTHONY J Signed Date and Time: 12/27/2021 3:31 pm Signed by: MD ALONSO ANTHONY J Transcribed Date and Time: 12/27/2021 3:32 Normal [facility] Basophil percentageon 2021 Cholesterol [Mass/Vol] 124 mg/dL <200 [facility] Work Phone: Comment on above: <200 mg/dL Desirable 200-240 mg/dL Borderline >240 mg/dL High Risk Triglyceride [Mass/Vol] 154 mg/dL <199 [facility] Work Phone: Comment on above: The drugs N-Acetylcy steine and Metamizole may falsely depress this assay.Serum Triglycerides Reference Interval Normal <150 mg/dL Borderline high 150 - 199 mg/dL High 200 - 499 mg/dL Very High > or = 500 mg/dL Serum or plasma cholesterol in HDL measurement (mass/volume)on 12-20-2021 Cholesterol in HDL [Mass/Vol] 33 mg/dL >40 [facility] Work Phone: Comment on above: The drugs N-Acetylcy steine and Metamizole may falsely depress this assay. Reference Range HDL <40 mg/dL Low HDL Cholesterol HDL >or= 60 mg/dL High HDL Cholesterol Serum or plasma cholesterol in VLDL measurement (mass/volume)on 12-20-2021 Cholesterol in VLDL [Mass/Vol] 31 mg/dL 5-40 [facility] Work Phone: Serum or plasma low density lipoprotein (LDL) cholesterol measurement (mass/volume)on 12-20-2021 Cholesterol in LDL [Mass/Vol] 60 mg/dL 0-130 [facility] Work Phone: Absolute lymphocyte counton 12-13-2021 Lymphocytes Auto (Unsp spec) [#/Vol] 2.07 10*3/uL 0.83-4.51 [facility] Work Phone: Basophil percentageon 2021 Basophils/100 WBC (Bld) 1.3 % 0-1 [facility] Work Phone: Chloride [Moles/Vol] 107 mmol/L 98-107 [facility]: Eosinophils/100 WBC (Bld) 5.3 % 0-5 [facility] Work Phone: Glucose [Mass/Vol] 96 mg/dL 74-106 [facility] Work Phone: Neutrophils (Bld) [#/Vol] 4.1 10*3/uL 2.0-7.7 [facility] Work Phone: Neutrophils/100 WBC (Bld) 57.1 % 47-70 [facility] Work Phone: Potassium [Moles/Vol] 4.0 mmol/L 3.5-5.1 [facility] [place] Work Phone: Comment on above: Moderate Hemolysis, Result may be falsely increased. Sodium [Moles/Vol] 137 mmol/L 136-145 [facility] Work Phone: WBC (Bld) [#/Vol] 7.2 10*3/uL 4.4-11.0 [facility] Work Phone: Blood erythrocytes count (nu mber/volume)on 12-13-2021 RBC (Bld) [#/Vol] 4.23 10*6/uL 4.2-5.4 [facility] Work Phone: Blood hemoglobin measurement (mass/volume)on 12-13-2021 Hemoglobin (Bld) [Mass/Vol] 12.0 g/dL 12.0-15.0 [facility] Work Phone: Blood lymphocytes/100 leukoc yteson 12-13-2021 Lymphocytes/100 WBC (Bld) 28.9 % 19-41 [facility] Work Phone: Blood monocytes/100 leukocyt eson 12-13-2021 Monocytes/100 WBC (Bld) 7.1 % 0-10 [facility] Work Phone: Blood platelet mean volumeon 12-13-2021 Platelet mean volume (Bld) [Entitic vol] 10.2 fL 6.2-12.0 [facility] Work Phone: Determination of erythrocyte mean corpuscular volume (MCV)on 12-13-2021 MCV (RBC) [Entitic vol] 94.6 fL 81-99 [facility] Work Phone: Hematocrit Auto (Bld) [Volum e fraction]on 12-13-2021 Hematocrit (Bld) [Volume fraction] 40.0 % 37-47 [facility] Work Phone: Laboratory - Chemistry and C hemistry - challengeon 12-13-2021 CO2 [Moles/Vol] 24.0 mmol/L 21.0-32.0 [facility] Work Phone: Urea nitrogen/Creatinine [Mass ratio] 18.7 mg/mg 10-20 [facility] Work Phone: Laboratory - Hematology and Cell countson 12-13-2021 Erythrocyte distribution width (RBC) [Entitic vol] 46.8 fL 35.1-43.9 [facility] Work Phone: Erythrocyte distribution width (RBC) [Ratio] 13.5 % 11.6-14.6 [facility] Work Phone: Immature granulocytes/100 WBC (Bld) 0.300 % 0.0-0.9 [facility] Work Phone: Comment on above: IG% - Immature Granu locytes (promyelocytes, myelocytes and metamyelocytes) > 1% indicates that a LEFT SHIFT is Present. MCH (RBC) [Entitic mass] 28.4 pg 27.0-32.0 [facility] Work Phone: Nucleated RBC/100 WBC (Bld) [Ratio] 0 % 0-5 [facility] Work Phone: MCHC Auto (RBC) [Mass/Vol]on 12-13-2021 MCHC (RBC) [Mass/Vol] 30.0 g/dL 32-36 [facility] Work Phone: No Panel Informationon 12-13 Estimated GFR (MDRD) Amer 98 mL/min >60 [facility] Work Phone: Comment on above: GFR Calc Estimated GFR (MDRD) Non-Af Amer 81 mL/min >60 [facility] Work Phone: Comment on above: Non- GFR Calc Platelets bldon 12-13-2021 Platelets (Bld) [#/Vol] 258 10*3/uL 150-450 [facility] Work Phone: Serum or plasma calcium carlie urement (mass/volume)on 12-13-2021 Calcium [Mass/Vol] 8.8 mg/dL 8.5-10.1 [facility] Work Phone: Serum or plasma creatinine m easurement (mass/volume)on 12-13-2021 Creatinine [Mass/Vol] 0.75 mg/dL 0.55-1.02 [facility] Work Phone: Comment on above: The validity of the calculated GFR & GFRAA in patients over 70 years has not been determined. Clinical correlation is essential. Serum or plasma urea nitroge n measurement (mass/volume)on 12-13-2021 Urea nitrogen [Mass/Vol] 14 mg/dL 7-18 [facility] Work Phone: Thin prep Papanicolaou smear with manual screeningon 12-13-2021 Thin prep Papanicolaou smear with manual screening 6 5-15 [facility] Work Phone: Basophil percentageon 2021 Bilirubin [Mass/Vol] 0.20 mg/dL 0.20-1.00 [facility] Work Phone: Comment on above: For patients on eltr ombopag therapy, use of [employer] [place] TBIL is not recommended. Chloride [Moles/Vol] 106 mmol/L 98-107 [facility] Work Phone: Glucose [Mass/Vol] 115 mg/dL 74-106 [facility] Work Phone: Comment on above: Fasting Glucose resu lt from 100 to 125 mg/dL suggests IMPAIRED HOMEOSTASIS per A.D.A. criteria. Potassium [Moles/Vol] 3.1 mmol/L 3.5-5.1 [facility] Work Phone: Protein [Mass/Vol] 6.4 g/dL 6.4-8.2 [facility] Work Phone: Sodium [Moles/Vol] 142 mmol/L 136-145 [facility] Work Phone: WBC (Bld) [#/Vol] 7.3 10*3/uL 4.4-11.0 [facility] Work Phone: Blood erythrocytes count (nu mber/volume)on 11-29-2021 RBC (Bld) [#/Vol] 3.88 10*6/uL 4.2-5.4 [facility] Work [facility]: Blood hemoglobin measurement (mass/volume)on 11-29-2021 Hemoglobin (Bld) [Mass/Vol] 11.0 g/dL 12.0-15.0 [facility] Work Phone: Blood platelet mean volumeon 11-29-2021 Platelet mean volume (Bld) [Entitic vol] 10.3 fL 6.2-12.0 [facility] Work Phone: Determination of erythrocyte mean corpuscular volume (MCV)on 11-29-2021 MCV (RBC) [Entitic vol] 88.7 fL 81-99 [facility] Work Phone: Direct bilirubinon 2 Bilirubin.direct [Mass/Vol] 0.09 mg/dL 0.00-0.30 [facility] Work Phone: Hematocrit Auto (Bld) [Volum e fraction]on 11-29-2021 Hematocrit (Bld) [Volume fraction] 34.4 % 37-47 [facility] Work Phone: Laboratory - Chemistry and C hemistry - challengeon 11-29-2021 ALP [Catalytic activity/Vol] 128 U/L 45-117 [facility] Work Phone: ALT [Catalytic activity/Vol] 14 U/L 13-56 [facility] Work Phone: CO2 [Moles/Vol] 31.0 mmol/L 21.0-32.0 [facility] Work Phone: Globulin (S) [Mass/Vol] 3.7 g/dL 2.2-4.2 [facility] Work Phone: Urea nitrogen/Creatinine [Mass ratio] 10.8 mg/mg 10-20 [facility] Work Phone: Laboratory - Hematology and Cell countson 11-29-2021 Erythrocyte distribution width (RBC) [Entitic vol] 42.3 fL 35.1-43.9 [facility] Work Phone: Erythrocyte distribution width (RBC) [Ratio] 13.1 % 11.6-14.6 [facility] Work Phone: MCH (RBC) [Entitic mass] 28.4 pg 27.0-32.0 [facility] Work Phone: MCHC Auto (RBC) [Mass/Vol]on 11-29-2021 MCHC (RBC) [Mass/Vol] 32.0 g/dL 32-36 [facility] Work Phone: No Panel Informationon 11-29 Carbamazepine (Tegretol) Level 9.6 ug/mL 4.0-12.0 [facility] Work Phone: Estimated GFR (MDRD) Amer 99 mL/min >60 [facility] Work Phone: Comment on above: GFR Calc Estimated GFR (MDRD) Non-Af Amer 81 mL/min >60 [facility] Work Phone: Comment on above: Non- GFR Calc Platelets bldon 11-29-2021 Platelets (Bld) [#/Vol] 277 10*3/uL 150-450 [facility] Work Phone: Serum or plasma albumin carlie urement (mass/volume)on 11-29-2021 Albumin [Mass/Vol] 2.7 g/dL 3.2-5.0 [facility] Work Phone: Serum or plasma albumin/glob ulin mass ratioon 11-29-2021 Albumin/Globulin [Mass ratio] 0.7 {ratio} 0.9-2.4 [facility] Work Phone: Serum or plasma calcium carlie urement (mass/volume)on 11-29-2021 Calcium [Mass/Vol] 8.2 mg/dL 8.5-10.1 [facility] Work Phone: Serum or plasma creatinine m easurement (mass/volume)on 11-29-2021 Creatinine [Mass/Vol] 0.74 mg/dL 0.55-1.02 [facility] Work Phone: Comment on above: The validity of the calculated GFR & GFRAA in patients over 70 years has not been determined. Clinical correlation is essential. Serum or plasma urea nitroge n measurement (mass/volume)on 11-29-2021 Urea nitrogen [Mass/Vol] 8 mg/dL 7-18 [facility] Work Phone: Thin prep Papanicolaou smear with manual screeningon 11-29-2021 Thin prep Papanicolaou smear with manual screening 13 U/L 15-37 [facility] Work Phone: Thin prep Papanicolaou smear with manual screening 5 5-15 [facility] Work Phone: Basophil percentageon 2021 Chloride [Moles/Vol] 106 mmol/L 98-107 [facility] Work Phone: Glucose [Mass/Vol] 89 mg/dL 74-106 [facility] Work Phone: Potassium [Moles/Vol] 3.7 mmol/L 3.5-5.1 [facility] Work Phone: Sodium [Moles/Vol] 141 mmol/L 136-145 [facility] Work Phone: WBC (Bld) [#/Vol] 6.9 10*3/uL 4.4-11.0 [facility] Work Phone: Blood erythrocytes count (nu mber/volume)on 11-05-2021 RBC (Bld) [#/Vol] 4.16 10*6/uL 4.2-5.4 [facility] Work Phone: Blood hemoglobin measurement (mass/volume)on 11-05-2021 Hemoglobin (Bld) [Mass/Vol] 12.3 g/dL 12.0-15.0 [facility] Work Phone: Blood platelet mean volumeon 11-05-2021 Platelet mean volume (Bld) [Entitic vol] 10.2 fL 6.2-12.0 [facility] Work Phone: Determination of erythrocyte mean corpuscular volume (MCV)on 11-05-2021 MCV (RBC) [Entitic vol] 89.9 fL 81-99 [facility] Work Phone: Hematocrit Auto (Bld) [Volum e fraction]on 11-05-2021 Hematocrit (Bld) [Volume fraction] 37.4 % 37-47 [facility] Work Phone: Laboratory - Chemistry and C hemistry - challengeon 11-05-2021 CO2 [Moles/Vol] 32.0 mmol/L 21.0-32.0 [facility] Work Phone: Urea nitrogen/Creatinine [Mass ratio] 7.3 mg/mg 10-20 [facility] Work Phone: Laboratory - Hematology and Cell countson 11-05-2021 Erythrocyte distribution width (RBC) [Entitic vol] 42.3 fL 35.1-43.9 [facility] Work Phone: Erythrocyte distribution width (RBC) [Ratio] 12.8 % 11.6-14.6 [facility] Work Phone: MCH (RBC) [Entitic mass] 29.6 pg 27.0-32.0 [facility] Work Phone: MCHC Auto (RBC) [Mass/Vol]on 11-05-2021 MCHC (RBC) [Mass/Vol] 32.9 g/dL 32-36 [facility] Work Phone: No Panel Informationon 11-05 Estimated GFR (MDRD) Amer 87 mL/min >60 [facility] Work Phone: Comment on above: GFR Calc Estimated GFR (MDRD) Non-Af Amer 72 mL/min >60 [facility] Work Phone: Comment on above: Non- GFR Calc Platelets bldon 11-05-2021 Platelets (Bld) [#/Vol] 294 10*3/uL 150-450 [facility] Work Phone: Serum or plasma calcium carlie urement (mass/volume)on 11-05-2021 Calcium [Mass/Vol] 8.6 mg/dL 8.5-10.1 [facility] Work Phone: Serum or plasma creatinine m easurement (mass/volume)on 11-05-2021 Creatinine [Mass/Vol] 0.83 mg/dL 0.55-1.02 [facility] Work Phone: Comment on above: The validity of the calculated GFR & GFRAA in patients over 70 years has not been determined. Clinical correlation is essential. Serum or plasma urea nitroge n measurement (mass/volume)on 11-05-2021 Urea nitrogen [Mass/Vol] 6 mg/dL 7-18 [facility] Work Phone: Thin prep Papanicolaou smear with manual screeningon 11-05-2021 Thin prep Papanicolaou smear with manual screening 3 5-15 [facility] Work Phone: Basophil percentageon 2021 Bilirubin [Mass/Vol] 0.20 mg/dL 0.20-1.00 [facility] Work Phone: Comment on above: For patients on eltr ombopag therapy, use of [employer] [place] TBIL is not recommended. Protein [Mass/Vol] 6.8 g/dL 6.4-8.2 [facility] Work Phone: WBC (Bld) [#/Vol] 5.9 10*3/uL 4.4-11.0 [facility] Work Phone: Blood erythrocytes count (nu mber/volume)on 09-24-2021 RBC (Bld) [#/Vol] 3.96 10*6/uL 4.2-5.4 [facility] Work Phone: Blood hemoglobin measurement (mass/volume)on 09-24-2021 Hemoglobin (Bld) [Mass/Vol] 11.6 g/dL 12.0-15.0 [facility] Work Phone: Blood platelet mean volumeon 09-24-2021 Platelet mean volume (Bld) [Entitic vol] 10.2 fL 6.2-12.0 [facility] Work Phone: Determination of erythrocyte mean corpuscular volume (MCV)on 09-24-2021 MCV (RBC) [Entitic vol] 89.9 fL 81-99 [facility] Work Phone: Direct bilirubinon 2 Bilirubin.direct [Mass/Vol] 0.10 mg/dL 0.00-0.30 [facility] Work Phone: Hematocrit Auto (Bld) [Volum e fraction]on 09-24-2021 Hematocrit (Bld) [Volume fraction] 35.6 % 37-47 [facility] [facility] Work Phone: Laboratory - Chemistry and C hemistry - challengeon 09-24-2021 ALP [Catalytic activity/Vol] 132 U/L 45-117 [facility] Work Phone: ALT [Catalytic activity/Vol] 15 U/L 13-56 [facility] Work Phone: Globulin (S) [Mass/Vol] 3.9 g/dL 2.2-4.2 [facility] Work Phone: Laboratory - Hematology and Cell countson 09-24-2021 Erythrocyte distribution width (RBC) [Entitic vol] 48.8 fL 35.1-43.9 [facility] Work Phone: Erythrocyte distribution width (RBC) [Ratio] 14.6 % 11.6-14.6 [facility] Work Phone: MCH (RBC) [Entitic mass] 29.3 pg 27.0-32.0 [facility] Work Phone: MCHC Auto (RBC) [Mass/Vol]on 09-24-2021 MCHC (RBC) [Mass/Vol] 32.6 g/dL 32-36 [facility] Work Phone: No Panel Informationon 09-24 Carbamazepine (Tegretol) Level 9.7 ug/mL 4.0-12.0 [facility] Work Phone: Platelets bldon 09-24-2021 Platelets (Bld) [#/Vol] 268 10*3/uL 150-450 [facility] Work Phone: Serum or plasma albumin carlie urement (mass/volume)on 09-24-2021 Albumin [Mass/Vol] 2.9 g/dL 3.2-5.0 [facility] Work Phone: Thin prep Papanicolaou smear with manual screeningon 09-24-2021 Thin prep Papanicolaou smear with manual screening 20 U/L 15-37 [facility] Work Phone: XR Shoulder Left 2 VWOrdered By: Opal Espinoza on 12-07-2020 Patient Name: ANDRE BLANCA Diagnostic Radiology ACCESSION EXAM DATE/TIME PROCEDURE ORDERING PROVIDER [id number] 12/07/2020 09:55 EDT CR Shoulder 2+ Views OLGAOPAL Left CPT code 53918 Reason For Exam (CR Shoulder 2+ Views Left) Pain in left shoulder Report Indication: Pain. Four views of the left shoulder show no evidence of an acute fracture or dislocation. There is no bone destruction, erosion or periosteal reaction. There is narrowing of the glenohumeral joint with osteophytosis along the inferior aspect of the glenoid and humeral head compatible with osteoarthritic degenerative change. The left acromioclavicular joint is intact. There are no radiopaque foreign bodies. IMPRESSION: 1. No evidence of an acute bone process. 2. Osteoarthritic degenerative changes of the left glenohumeral joint. Report Dictated on --- Final --- Dictating Physician: DO GARZA ANTHONY Signed Date and Time: 12/07/2020 10:15 am Signed by: DO GARZA ANTHONY Transcribed Date and Time: 12/07/2020 10:16 [facility] Work Phone: [facility], [facility]coming [facility] - 12/07/2020 10:16 AM EDT Patient Name: ANDRE BLANCA Diagnostic Radiology ACCESSION EXAM DATE/TIME PROCEDURE ORDERING PROVIDER [id number] 12/07/2020 09:55 EDT CR Shoulder 2+ Views OPAL ESPINOZA Left CPT code 18053 Reason For Exam (CR Shoulder 2+ Views Left) Pain in left shoulder Report Indication: Pain. Four views of the left shoulder show no evidence of an acute fracture or dislocation. There is no bone destruction, erosion or periosteal reaction. There is narrowing of the glenohumeral joint with osteophytosis along the inferior aspect of the glenoid and humeral head compatible with osteoarthritic degenerative change. The left acromioclavicular joint is intact. There are no radiopaque foreign bodies. IMPRESSION: 1. No evidence of an acute bone process. 2. Osteoarthritic degenerative changes of the left glenohumeral joint. Report Dictated on --- Final --- Dictating Physician: DO GARZA ANTHONY Signed Date and Time: 12/07/2020 10:15 am Signed by: DO GARZA ANTHONY Transcribed Date and Time: 12/07/2020 10:16 [facility] Work Phone: Complete PFT Study Pre and P ost Bronchodilatoron 11-17-2020 Name: ANDRE BLANCA PatientID: [id number] Gender: Female Birthdate: 1950 Study Date: 11/17/2020 11:01:34 A Age: 70 Race: White or Height: 67.0 in, 170.2 cm Weight: 214.0 lbs, 97.3 kg Smoke Status: Quit Pack Years: 62.Tbco Prod: Cigarettes Ordering Physician: [id number] Interpreting Physician: [id number] 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: DIRK Testing Location: [facility] Diagnosis: COPD Spirometry Units Pred PreDrug Pre%Pred Post Post%Pred %Change FVC L,btps 3.34 1.97 59. 1.82 55. -7. FEV1 L,btps 2.53 1.40 55. 1.30 52. -7. FEV1/FVC (%) % 76. 71. 94. 72. 94. 1. KOQ28-30% L/s 2.03 0.89 44. 0.85 42. -5. FEFmax L/s 6.04 4.63 77. 4.24 70. -8. MVV in,btps 89.77 50.07 56. Lung Volumes (Body Box) Units Pred PreDrug Pre%Pred TLC L,btps 5.55 VC L,btps 3.34 IC L,btps 2.67 FRC L,btps 2.88 ERV L,btps 0.67 RV L,btps 2.22 RV/TLC (%) % 40. VTG L,btps RAW H2O/L/s 1.32 SGaw cmH2O/L 0.26 Diffusion (DLCO) Units Pred PreDrug Pre%Pred DLCO ml/min/mmHg,stpd 24.11 10.89 45. DLCOHb ml/min/mmHg,stpd 24.11 10.89 45. VAsb L,btps 5.42 2.74 51. D/VAsb ml/min/mmHg/L,stpd 4.45 3.98 89. D/VAsbHb ml/min/mmHg/L,stpd 4.45 3.98 89. VInsp L 1.66 Hgb g/dl 13.40 COHb % Nitrogen Washout Units Pred PreDrug Pre%Pred TLC L,btps 5.55 4.86 88. VC L,btps 3.34 2.23 67. FRC L,btps 2.88 2.68 93. IC L,btps 2.67 2.18 82. ERV L,btps 0.67 0.05 8. RV L,btps 2.22 2.63 119. RV/TLC (%) % 40. 54. 136. Lung Mechanics Units Pred PreDrug Pre%Pred PImax /MIP cmH2O -77.83 PEmax /MEP cmH2O 97.10 CORE PILER NOTES Good Patient effort. Consistent results. Best results reported.Calibration check passed with acceptable system performance. The patient performed all pre-test requirements. Not all DLCO quality indicators met for acceptability. Effort with highest Vinsp & Dsb selected. Pt has sob with exertion. Pt denies having a cough. Pt was given an Albuterol MDI x4 puffs via a spacer that was instructed and dispensed. Tests to perform: [id number] - FULL PFT STUDY WITH BRONCHODILATOR PHYSICIAN INTERPRETATION Forced expiratory spirogram reveals no large airway obstruction. Spirograms are of good quality and plateau early suggesting a restrictive ventilatory defect. Lung volumes are necessary to confirm restriction. Respiratory flow volume loop reveals a restrictive pattern. Objective evidence of bronchodilator response is not noted. The Maximal Voluntary Ventilation (MVV) is moderately reduced suggesting that the patient is unable to sustain high levels of ventilation as seen during exercise. This may be under estimated due to poor effort or cooperation. Lung volumes were measured by determining the Functional Residual Capacity (FRC) and determining the lung divisions by a Vital Capacity (VC) maneuver. The Total Lung Capacity (TLC) is normal. The Residual Volume (RV) and RV/TLC ratio are elevated suggesting early airway closure and gas trapping. Diffusion capacity for singel breath carbon monoxide is moderately reduced. This suggests a decrease in the alveolar capillary surface area for gas exchange and may be under estimated due to inadequate inspired volume. IMPRESSION: 1. Moderate to Severe restriction noted on spirometry. 2. Bronchodilator response is not significant. 3. MVV is moderately reduced. 4. Lung volumes are consistent with mild air trapping. 5. Diffusion capacity is moderately reduced. [employer] Work Phone: Scott, [employer] Incoming Cardiology Results From [facility] - 11/17/2020 12:08 PM EDT Name: ANDRE BLANCA PatientID: [id number] Gender: Female Birthdate: 1950 Study Date: 11/17/2020 11:01:34 A Age: 70 Race: White or Height: 67.0 in, 170.2 cm Weight: 214.0 lbs, 97.3 kg Smoke Status: Quit Pack Years: 62.Tbco Prod: Cigarettes Ordering Physician: [id number] Interpreting Physician: [id number] 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: DIRK Yarbrough Location: [facility] Diagnosis: COPD Spirometry Units Pred PreDrug Pre%Pred Post Post%Pred %Change FVC L,btps 3.34 1.97 59. 1.82 55. -7. FEV1 L,btps 2.53 1.40 55. 1.30 52. -7. FEV1/FVC (%) % 76. 71. 94. 72. 94. 1. DJS19-73% L/s 2.03 0.89 44. 0.85 42. -5. FEFmax L/s 6.04 4.63 77. 4.24 70. -8. MVV in,btps 89.77 50.07 56. Lung Volumes (Body Box) Units Pred PreDrug Pre%Pred TLC L,btps 5.55 VC L,btps 3.34 IC L,btps 2.67 FRC L,btps 2.88 ERV L,btps 0.67 RV L,btps 2.22 RV/TLC (%) % 40. VTG L,btps RAW H2O/L/s 1.32 SGaw cmH2O/L 0.26 Diffusion (DLCO) Units Pred PreDrug Pre%Pred DLCO ml/min/mmHg,stpd 24.11 10.89 45. DLCOHb ml/min/mmHg,stpd 24.11 10.89 45. VAsb L,btps 5.42 2.74 51. D/VAsb ml/min/mmHg/L,stpd 4.45 3.98 89. D/VAsbHb ml/min/mmHg/L,stpd 4.45 3.98 89. VInsp L 1.66 Hgb g/dl 13.40 COHb % Nitrogen Washout Units Pred PreDrug Pre%Pred TLC L,btps 5.55 4.86 88. VC L,btps 3.34 2.23 67. FRC L,btps 2.88 2.68 93. IC L,btps 2.67 2.18 82. ERV L,btps 0.67 0.05 8. RV L,btps 2.22 2.63 119. RV/TLC (%) % 40. 54. 136. Lung Mechanics Units Pred PreDrug Pre%Pred PImax /MIP cmH2O -77.83 PEmax /MEP cmH2O 97.10 CORE PILER NOTES Good Patient effort. Consistent results. Best results reported.Calibration check passed with acceptable system performance. The patient performed all pre-test requirements. Not all DLCO quality indicators met for acceptability. Effort with highest Vinsp & Dsb selected. Pt has sob with exertion. Pt denies having a cough. Pt was given an Albuterol MDI x4 puffs via a spacer that was instructed and dispensed. Tests to perform: [id number] - FULL PFT STUDY WITH BRONCHODILATOR PHYSICIAN INTERPRETATION Forced expiratory spirogram reveals no large airway obstruction. Spirograms are of good quality and plateau early suggesting a restrictive ventilatory defect. Lung volumes are necessary to confirm restriction. Respiratory flow volume loop reveals a restrictive pattern. Objective evidence of bronchodilator response is not noted. The Maximal Voluntary Ventilation (MVV) is moderately reduced suggesting that the patient is unable to sustain high levels of ventilation as seen during exercise. This may be under estimated due to poor effort or cooperation. Lung volumes were measured by determining the Functional Residual Capacity (FRC) and determining the lung divisions by a Vital Capacity (VC) maneuver. The Total Lung Capacity (TLC) is normal. The Residual Volume (RV) and RV/TLC ratio are elevated suggesting early airway closure and gas trapping. Diffusion capacity for singel breath carbon monoxide is moderately reduced. This suggests a decrease in the alveolar capillary surface area for gas exchange and may be under estimated due to inadequate inspired volume. IMPRESSION: 1. Moderate to Severe restriction noted on spirometry. 2. Bronchodilator response is not significant. 3. MVV is moderately reduced. 4. Lung volumes are consistent with mild air trapping. 5. Diffusion capacity is moderately reduced. [employer] Work Phone: [email or web address] 08-21-2020 [facility] Patient Name: ANDRE BLANCA [address] Date of : [address] [place] [address] Unit Number: [id number] Discharge Summary Patient Status: DIS IN Attending Doctor: Estevan Bauer DO Service Date: 08/21/20 181 Discharge Summary Admit Date Admission Date Time: 07/27/201736 Anticipated Discharge Date 08/03/20 Final Dx/Problem List 1. Acute respiratory failure with hypoxia On Fariha 2:27p Aug 20, 2020 ESTEVAN BAUER wrote Secondary to COPD exacerbation and aspiration pneumonia. 2. Bipolar 1 disorder, mixed, moderate On Mon:Aug 19, 2020 ESTEVAN BAUER wrote Continue Tegretol 200 mg 3 times daily, Prozac 20 mg daily, Seroquel 100 mg at night, Risperdal 3 mg twice daily, and IV Haldol as needed. Psychiatry is consulted. 3. TASHI (acute kidney injury) On Mon:Aug 19, 2020 ESTEVAN BAUER wrote Resolved. Creatinine is back at baseline. 4. Syncope 5. Obesity On Mon:Aug 19, 2020 ESTEVAN BAUER wrote BMI 41.9 6. COPD exacerbation On Mon:Aug 19, 2020 ESTEVAN BAUER wrote Continue breathing treatments in the hospital. Will need to be discharged with LABA/ICS. She will need PFTs performed outpatient. Follow-up with pulmonology in 4 to 6 weeks. 7. Acute delirium On Mon:Aug 19, 2020 ESTEVAN BAUER wrote Continue reorienting patient. Minimize usage of Haldol. 8. Hypothyroidism On Mon:Aug 19, 2020 ESTEVAN BAUER wrote Continue levothyroxine. 9. HLD (hyperlipidemia) On Mon:Aug 19, 2020 ESTEVAN BAUER wrote Continue statin. 10. History of ischemic stroke On Mon:Aug 19, 2020 ESTEVAN BAUER wrote Continue statin. Patient should be on aspirin for secondary stroke prevention. We will review medications. Patient Problems Reviewed: Yes Chief Complaint/HPI syncope Reason for Admission acute hypoxia, COPD exacerbation Hospital Course 70 yo female with a PMH of CVA, hypothyroidism, COPD, recurrent syncopal episodes presented to hospital after being sent from her physicians office because of low blood pressure. She was sent to the ED immediately. She was found to have had viral symptoms of diarrhea, shortness of breath, decreased appetitie, headache, sore throat, and myalgias for the last 5-6 days. She was worked up in the ED and BP was 127/66, HR 91, Temp 98.1F, RR 22, and SpO2 95%. Chest Xray showed no acute cardiopulmonary process. Her oxygen level would decrease to 85% while in the ED. She would be admitted to the hospital for COPD exacerbation and started on steroids and breathing treatments. During hospital stay, patient's breathing status worsened due to aspiration and would be transferred to the ICU requiring High flow nasal cannula. She would finish a course of unasyn to treat aspiration pneumonia and her breathing status would improve. She would also be evaluated by psychiatry due to issues with her Bipolar disorder. Medications would be adjusted and she will continue tegretol 200mg TID, prozac 20 mg dailys, seroquel 100 mg QHS, and risperdal 3mg BID. Her oxygen would be weaned down to 3L NC on discharge. She would be continued on Symbicort on discharge. She will follow up with pulmonology in 4-6 weeks. She will follow up with PCP in one week. Vitals were stable on discharge. Vital Signs Vital Signs (Last) Result Date Time Pulse Ox 94 08/21 0846 O2 Delivery NASAL CANNULA 08/21 0846 B/P 117/62 08/21 699 Pulse 79 08/21 699 Resp 16 08/21 699 O2 Flow Rate 3 08/21 0030 Temp 97.7 08/21 0030 B/P Mean 79 08/18 0607 Pertinent Physical Findings Vital Signs Temperature 98.1, heart rate 98, respiratory rate 20, blood pressure 115/68, SPO2 94% 2 L Appearance - PE Awake, Alert, No distress Neck - PE Normal inspection, Supple, Full range of motion HEENT - PE Head atraumatic, Eyes normal inspection, PERRLA, Hearing grossly normal, No signs of dehydration, Mucosa moist Respiratory - PE Lungs sound clear, Respirations non-labored, Symmetrical expansion Cardiovascular - PE Rate WNL, Rhythm regular, Normal heart sounds Neurological - PE Alert, Oriented x 3, No motor deficit, No sensory deficit Abdomen - PE Bowel sounds present, Abdomen soft, Non-tender, No distension Extremity - PE Normal appearance, No pedal edema, Symmetrical Skin - PE Color normal, Skin warm, dry Consults Critical Care, Psychiatry, Pulmonology Prescriptions Stop taking the following medications: Meclizine HCl (Antivert Tab) 25 MG UDTAB 25 MILLIGRAM ORAL 3 TIMES DAILY NEEDED as needed for VERTIGO Ergocalciferol (Vitamin D2) (Vitamin D 50,000 Unit Cap) 50,000 UNIT CAPSULE 50,000 UNIT ORAL EVERY 14 DAYS Polyethylene Glycol 3350* (Miralax Packet*) 17 GM POWD.PACK 17 GRAM ORAL EVERY DAY Cyclobenzaprine HCl* (Flexeril 10MG Tab*) 10 MG TABLET 10 MILLIGRAM ORAL 2 TIMES DAILY Biotin (Biotin) 1 MG TABLET 0.5 MILLIGRAM ORAL EVERY DAY Cyanocobalamin (Vitamin B12 (1,000MCG) Tab) 1,000 MCG TABLET 500 MICROGRAM ORAL EVERY DAY Beta-Carotene (Beta Carotene) 25,000 UNIT CAPSULE 25,000 UNIT ORAL EVERY DAY Folic Acid (Folic Acid) 0.4 MG TABLET 0.4 MILLIGRAM ORAL EVERY DAY calcium CARB/VIT D3 (Caltrate 600 W-D Tab) 1 EACH TABLET 1 TABLET ORAL EVERY DAY Vitamin B Complex (B Complex) 1 EACH CAPSULE 1 EACH ORAL EVERY DAY Lysine (Lysine) 500 MG TABLET 500 MILLIGRAM ORAL EVERY DAY Ascorbic Acid* (Vitamin C 500MG Tab*) 500 MG CAPSULE.ER 500 MILLIGRAM ORAL EVERY DAY Ferrous Sulfate* (Dash-Time*) 325 MG TABLET 325 MILLIGRAM ORAL 3 TIMES DAILY BEFORE MEALS Continue taking these medications: Methyl Salicylate/Menthol* (Bengay Greaseless Cream*) 57 GM CREAM..G. 1 APPLICATION TOPICAL 2 TIMES DAILY NEEDED as needed for PAIN Instructions: APPLY TO NECK Budesonide/Formoterol Fum (Symbicort 160/4.5 Mcg INH) 1 PUFF HFA.AER.AD 1 PUFFS INHALATION* 2 TIMES DAILY carBAMazepine* (Tegretol 200MG Tab*) 200 MG TABLET 200 MILLIGRAM ORAL 3 TIMES DAILY WITH MEALS Fluoxetine HCl* (Prozac 20MG Cap*) 20 MG CAPSULE 20 MILLIGRAM ORAL EVERY DAY Albuterol Sulfate (Proair Hfa Inhaler) 8.5 GM HFA.AER.AD 1-2 PUFFS INHALATION* FOUR TIMES DAILY NEEDED as needed for SHORTNESS OF BREATH Pantoprazole* (Protonix 40MG Tab*) 40 MG TABLET.DR 40 MILLIGRAM ORAL TWICE A DAY BEFORE MEALS Clopidogrel Bisulfate* (Plavix 75MG Tab*) 75 MG TABLET 75 MILLIGRAM ORAL EVERY DAY busPIRone HCL* (Buspar 10MG Tab*) 10 MG TABLET 10 MILLIGRAM ORAL 3 TIMES DAILY WITH MEALS Acetaminophen* (Tylenol 500MG Tab*) 500 MG TABLET 500 MILLIGRAM ORAL EVERY 6 HOURS NEEDED as needed for PAIN Ondansetron HCl* (Zofran 4MG Tab*) 4 MG TABLET 4 MILLIGRAM ORAL 2 TIMES DAILY NEEDED as needed for NAUSEA Levothyroxine Sodium* (Synthroid 0.125MG Tab*) 125 MCG TABLET 0.125 MILLIGRAM ORAL ONCE DAILY BEFORE MEALS Melatonin* (Melatonin Tab*) 3 MG TABLET 3 MILLIGRAM ORAL AT BEDTIME Pravastatin Sodium* (Pravachol 40MG Tab*) 40 MG TABLET 40 MILLIGRAM ORAL AT BEDTIME Risperidone* (Risperdal 3MG Tab*) 3 MG TABLET 3 MILLIGRAM ORAL 2 TIMES DAILY Pregabalin* (Lyrica Cap*) 150 MG CAPSULE 150 MILLIGRAM ORAL 2 TIMES DAILY Amitriptyline HCl (Elavil) (Amitriptyline HCl 100MG Tab) 100 MG TAB 100 MILLIGRAM ORAL AT BEDTIME Qty = 30 Ipratropium/Albuterol Sulfate* (Duoneb 0.5-3(2.5)MG/3ML Neb*) 3 ML AMPUL.NEB 3 MILLILITER INHALATION* EVERY 6 HOURS NEEDED as needed for dyspnea Referrals Ordered Referrals Primary Care Provide Call for an ... For Providers: Tori Walters [address] [place], [place] [id number] Pulmonary In Four-Six ... For Providers: Yamileth Corbin GENERAL LABOR FORKLIFT OPERATOR [address] [facility] [address] [place] [address] Condition: Improved Disposition Custodial Facility Phys Discharge Time Incur(Min) 31 CC: Tori Walters Disclaimer This dictation was created using voice recognition software. Phonetic and/or minor grammatical errors may exist. eSign Date and Time Estevan Bauer DO Verified/Reviewed by 09/02/20 0730 Normal [facility] GLUCOSE METERon 08-21-2020 Glucose [Mass/Vol] 134 mg/dL High 85-125 [facility] Glucose [Mass/Vol] 137 mg/dL High 85-125 [facility] OTPNon 08-21-2020 OT Progress Note Normal [facility] OT Occupational Therapy Inpatient Treatment Note Medical Diagnosis: Acute hypoxemic respiratory failure, Syncope, pneumonia, hypothyroidism OCCUPATIONAL PROFILE AND HISTORY Demographics: Age: 70Y Gender: Female Primary Language: Estonian Preferred Language: Estonian Referring Service/Team: Medicine Rehabilitation Precautions/Restrictio ns: 4L via NC, puree / nectar diet Patient Report: "IM OK, HUNGRY" Patient/Caregiver Goals: None stated Pain: Patient currently without complaints of pain. OBJECTIVE / OCCUPATIONAL PERFORMANCE General Observation: SEEN FOR ADLS AM THIS DATE. PATIENT IN BED, JUST FINISHED BREAKFAST, MODERATE CONFUSION AT TIMES, BUT OTHER TIMES PATIENT VERY APPROPRIATE TO SITUATION Activities of Daily Living: Current Status Previous Status ADLs Feeding Independent Supervision Grooming Minimal assistance Minimal assistance Bathing-UE Minimal assistance Minimal assistance Bathing-LE Moderate assistance Maximal assistance Dressing-UE Minimal assistance Minimal assistance Dressing-LE Moderate assistance Maximal assistance Toileting Moderate assistance Maximal assistance AM-PAC Daily Activities: Putting On/Taking Off Lower Body Clothing: A lot of help needed Bathing:: A lot of help needed Toileting: A lot of help needed Putting On/Taking Off Upper Body Clothing: A little help needed Grooming: A little help needed Eating a Meal: No help needed Raw Score = 16 , AM-PAC t-Scale Score = 35.96 and G-Code Modifier = CK Functional Mobility: Bed Mobility: All bed mobility including supine to sit, rolling, [facility] PATIENT NAME: ANDRE BLANCA [facility] Dr. Andrea MEDICAL REC #: [id number] [place] [address] ADMIT DATE: 07/27/20 SERVICE DATE: 08/21/20 Occupational Therapy Progress Note ATTENDING PHY: Marta Horvath. requiring supervision. CUES FOR SAFETY Transfers: Patient transferred to/from the toilet requiring minimal assistance of 1 person. Patient used the following equipment: Rolling walker. CUES FOR SAFETY, DIRECTION TURNS, Patient transferred bed to/from chair requiring minimal assistance of 1 person. Patient used the following equipment: Rolling walker. ABOVE Locomotion/Gait/Ambula tion: Patient was minimal assist with gait/ambulation of 1 person for 20' TO AND FROM THE BATHROOM . Patient requires the following assistive device(s): Rolling walker. ABOVE Interventions: Self Care/Home Management: BED MOBILITY, TRANSFERS BATHING, ADAPTIVE DRESSING IN PULL UP DEPENDS, TOILETING Therapeutic Activities: UNSUPPORTED SITTING BALANCE, FOLLOWING COMMANDS, MAKING NEEDS KNOWN, ORIENTATION WW SAFETY GAIT Pain Reassessment: No significant change in pain during session. Education: Education Provided: Precautions. Plan of care. Safety issues and interventions. Fall protocol. Altered mental status. Repeated re-orientation. Supervision requirements. Use of adaptive devices. Activities of daily living. Bed mobility. Functional transfers. Home exercise/activity plan. Audience: Patient. Mode: Explanation. Demonstration. Response: Needs practice. Needs reinforcement. Applied knowledge. ASSESSMENT Response to Visit: IMPROVED TOLERANCE TO ADLS AND MOBILITY , DECREASED STRENGTH, ENDURANCE, CONFUSION LIMITING PATIENT IS AT A HIGH RISK FOR FALLS . Activity/Participation Problem List and Goals: No updates at this time. Progress Toward Goals: TREATMENT GOAL REVIEW: 1. MOD I SELF CARE - Not Met: ONGOING 2. MOD I FUNCTIONAL TRANSFERS - Not Met ONGOING 3. MOD I FUNCTIONAL MOBILITY FOR GETTING AROUND THE HOUSE - Not Met ONGOING 4. IMPROVED STRENGTH/PULMONARY ENDURANCE TO DO ADL PROJECTED WHILE MAINTAINING O2 SATS ABOVE 92 - Not Met ONGOING 5. MOD I MIN CHALLENGE STANDING TASKS STANDING FOR UP TO 10 MIN AT A TIME W/ MINIMAL TO NO C/O DIZZINESS - Not Met ONGOING 6. PT/FAMILY WILL BE INSTRUCTED IN D/C RECOMMENDATIONS,HOME SAFETY,ADAPTIVE TECHNIQUES/EQUIPMENT AND DEMO UNDERSTANDING FOR FOLLOW THROUGH - Not Met: ONGOING Time frame to achieve treatment goal(s): 5x a wk until d/c [facility] PATIENT NAME: ANDRE BLANCA Dr. Andrea MEDICAL REC #: [id number] [place] [address] ADMIT DATE: 07/27/20 SERVICE DATE: 08/21/20 Occupational Therapy Progress Note ATTENDING PHY: Marta Horvath Treatment Frequency, Duration and Interventions: Occupational Therapy is recommended for 5X A WK UNTIL D/C Occupational Therapy treatment is to include: ]ADL TRAINING, TRANSFER TRAINING, STANDING BALANCE/ENDURANCE TRAINING, FUNCTIONAL MOBILITY TRAINING, STRENGTHENING,GRADED THERAPEUTIC EXERCISES/ACTIVITIES,P T/FAMILY EDUCATION Recommended Occupational Therapy Follow Up: Upon acute care discharge, the following is currently recommended: Inpatient Occupational Therapy, LESS THAN 60 minutes per day. Equipment Recommended: TBD Recommended Consults: None currently. Development of Plan of Care: Patient participated in plan of care development today. If there are any questions regarding this service, please contact the Acute Therapy Department at extension [phone] Communication to Nursing: No updates at this time. Location of Patient at End of Therapy Session: In chair, chair alarm in place, call light within reach Services: Total Billed: 38 minutes (Timed: 38, Untimed: 0) 23.00 Timed: [61878] ADL-HOME MANAGEMENT EA 15 MIN 15.00 Timed: [17307] THER ACTIVITIES / 15 MIN 0.00 Untimed: [] OT Treatment General ORDER Signed by: ROSEANNA LLAMAS 08/21/2020 08:35:38 - CoSigned By: KASEY MEZA 08/21/2020 12:19:[address] [facility] PATIENT NAME: ANDRE BLANCA Dr. Andrea MEDICAL REC #: [id number] [place] [address] ADMIT DATE: 07/27/20 SERVICE DATE: 08/21/20 Occupational Therapy Progress Note ATTENDING PHY: Marta Horvath DO Normal [facility] Prabhjot PROG.PSYCHon 08-21-2020 PROG.PSYCH [facility] Patient Name: ANDRE BLANCA [address] Date of : [address] [place] [address] Unit Number: [id number] Progress Note-Psych Patient Status: DIS IN Attending Doctor: Marta Horvath DO Service Date: 08/21/20 0835 Progress Note - PSYCH Subjective: (2 ROS minimum) She says she feels better and is more alert. She slept well. She has been feeling hungry. Objective: General appearance is alert. Speech is less garbled. She is oriented x3. Concentration is improved. Thinking is less confused. Mood is calm. She says they are working on where she will be going. Occupational therapist feels she is doing better. She has not needed PRN medications. Current Medications: Medications Current Sig/Antonella Start time Last Medication Dose Route Stop Time Status Admin Acetaminophen 500 MG Q6HPRN PRN 08/04 1930 AC 08/21 (TYLENOL ORAL LIQ) TUBE 0644 Albuterol Sulfate 2.5 MG Q6HPRN PRN 07/28 0030 AC (VENTOLIN/PROVENTIL INH 2.5MG/3ML INH.NEB) Albuterol/Ipratropium 3 ML QIDRT 08/18 1230 AC 08/20 (DUONEB 0.5-3 MG/3 INH 2049 ML INH.NEB) Albuterol/Ipratropium 3 ML Q2HPRN PRN 07/28 0100 AC (DUONEB 0.5-3 MG/3 INH ML INH.NEB) Budesonide 0.5 MG BID 08/04 2100 AC 08/20 (PULMOCORT 0.5MG/2ML INH 2049 INH.NEB) Buspirone HCl 10 MG TIDWM 08/12 1200 AC 08/20 (BUSPAR TAB) TUBE 1615 Carbamazepine 200 MG TIDWM 08/17 1330 AC 08/20 (TEGRETOL TAB.CHEW) PO 1743 Clopidogrel Bisulfate 75 MG QDAY 08/18 0900 AC 08/20 (PLAVIX TAB) PO 09 Enoxaparin Sodium 40 MG QDAY 12/15 0900 AC 08/20 (LOVENOX D.SYR) SC 0914 Esomeprazole 20 MG BIDAC 08/17 1908 AC 08/21 Magnesium PO 0641 (NEXIUM CAP (TXI)) Fluoxetine HCl 20 MG QDAY 08/18 0900 AC 08/20 (PROZAC CAP) PO 0913 Guaifenesin 10 ML TID 08/11 1400 AC 08/20 (ROBITUSSIN 200MG/10 TUBE 1426 ML ORAL LIQ) Haloperidol Lactate 2 MG Q4HPRN PRN 08/07 0900 AC 08/18 (HALDOL AMP) IV 0615 Heparin Sodium See Dose Q24H 08/06 0900 AC 08/20 (Porcine) Insts (1) IV 1039 (HEP-LOCK *10*UNITS/ ML IV D.SYR.PF) Heparin Sodium See Dose PRN PRN 08/05 1500 AC 08/17 (Porcine) Insts (2) IV 0048 (HEP-LOCK *10*UNITS/ ML IV D.SYR.PF) Insulin Human Lispro See Dose WMHS 08/19 0800 AC 08/20 (humaLOG/novoLOG PEN) Insts (3) SC 1237 Levothyroxine Sodium 0.125 MG QDAYAC 08/09 0700 AC 08/21 (SYNTHROID TAB) PO 0641 Loperamide HCl 2 MG PRN PRN 08/04 1930 AC 08/20 (IMODIUM AD ORAL TUBE 0922 LIQUID UDC) Menthol/Methyl 1 APPL BIDPRN PRN 07/28 0030 AC 08/15 Salicylate TP 2049 (MIHIR ALVAREZ T.CREAM) Ondansetron HCl 4 MG BIDPRN PRN 08/17 1600 AC (ZOFRAN TAB) PO Ondansetron HCl 4 MG Q6HPRN PRN 07/27 2100 AC 08/04 (ZOFRAN VIAL) IV 212 Pravastatin Sodium 40 MG QHS 08/17 2199 AC 08/20 (PRAVACHOL TAB) PO 212 Pregabalin 150 MG BID 08/17 2099 AC 08/20 (LYRICA CAP) PO 212 Quetiapine Fumarate 100 MG QHS 08/08 2200 AC 08/20 (SEROQUEL TAB) TUBE 2128 Risperidone 3 MG BID 08/17 2099 AC 08/20 (RISPERDAL TAB) PO 212 Sodium Chloride See Dose Q24H 08/06 0900 AC 08/20 (Sodium Chloride Insts (4) IV 1039 0.9% FLUSH D.SYR) Sodium Chloride See Dose PRN PRN 08/05 1500 AC 08/16 (Sodium Chloride Insts (5) IV 1239 0.9% FLUSH D.SYR) Dose Instructions: (1)Heparin Sodium (Porcine) (HEP-LOCK *10*UNITS/ML IV D.SYR.PF): 50-200 UNITS (2)Heparin Sodium (Porcine) (HEP-LOCK *10*UNITS/ML IV D.SYR.PF): 50-200 UNITS (3)Insulin Human Lispro (humaLOG/novoLOG PEN): 1-8 Units (4)Sodium Chloride (Sodium Chloride 0.9% FLUSH D.SYR): 10-40 ML (5)Sodium Chloride (Sodium Chloride 0.9% FLUSH D.SYR): 10-40 ML Assessment/Plan Conclusion 1. Bipolar 1 disorder, mixed, moderate She has been improving on her medications. She should continue BuSpar 10 mg 3 times daily , Tegretol 200 mg 3 times daily, Prozac 20 mg a day, Seroquel 100 mg at night, Risperdal 3 mg twice daily, and Haldol 2 mg IV as needed. She has not needed PRN Haldol recently. She will need further reassurance and support. Improved Stable Problems Problems not specifically addressed in the above plan are stable and do not warrant adjustment of the current method of therapy. Disclaimer This dictation was created using voice recognition software. Phonetic and/or minor grammatical errors may exist. eSign Date and Time Milind Gates MD Verified/Reviewed by 08/24/20 0743 [facility] Progress Note-Psych [facility] PTPNon 08-21-2020 PT Progress Note [facility] PTPN Physical Therapy Inpatient Treatment Note Medical Diagnosis: 1. Acute hypoxemia respiratory failure 2. Syncope 3. Hypothyroidism multiple rib fxs Demographics: Age: 70Y Gender: Female Primary Language: Estonian Preferred Language: Estonian Rehabilitation Precautions/Restrictio ns: 4L via NC, puree / nectar diet SUBJECTIVE Patient Report: "When am I going home?" Patient/Caregiver Goals: None stated Pain: Patient currently without complaints of pain. OBJECTIVE General Observation: Pt seated in recliner upon arrival. Agreeable to session. Pt able to state in hospital. Denies pain. To SNF soon. Pt w/ observable SOB w/ good SpO2. Functional Activities After Today's Session: Transfers: TX:Sit<->stand w/ MOD A w/ vc for proper hand placement. MOD A for turning and backing to sit. Locomotion/Ambulation: Patient was moderate assist with gait/ambulation of 1 person for 15'x2 . Patient requires the following assistive device(s): Rolling walker. narrow LUIS w decreased step length (B). No LE buckling. Pt very fatigued. Thex:seated (B) LE x 15 reps. ea. including AP, LAQ, Marching, hip add using pillow. Rest breaks as needed. AM-PAC Basic Mobility: Turning Over in Bed: A little difficulty Sitting/Standing Chair with Arms: A lot of difficulty Lying on Back to Sitting on Side of Bed: A little difficulty Moving To/From Bed to Chair: A little help needed Walking in Hospital Room: A lot of help needed Climbing 3-5 Steps with Railing: A lot of help needed Raw Score = 15 , AM-PAC t-Scale Score = 39.45 and G-Code Modifier = CK [facility] PATIENT NAME: ANDRE BLANCA [facility] Dr. Andrea MEDICAL REC #: [id number] [place] [address] ADMIT DATE: 07/27/20 SERVICE DATE: 08/21/20 Physical Therapy Progress Note ATTENDING DAMIAN: Marta Horvath DO Vital Signs: SpO2 94% Interventions: Gait Training: functional transfer training,, standing balance w/ (B) UE support, gait training w/ ww, LE thex and monitoring of SpO2. Pain Reassessment: No pain at onset or during treatment, which does not warrant reassessment. Education: No updates required at this time. ASSESSMENT Response to Visit: P tolerated session better w/ improved alertness for most of session. Pt able to increase amb distance w/o LE's buckling. Activity/Participation Problem List and Goals: No updates at this time. Progress Toward Goals: TREATMENT GOAL REVIEW: 1. Pt transfer MOD I - Not Met: ongoing 2. Pt ambulate at least 50 feet WW MOD I - Not Met ongoing 3. Demo independence with LE thex for endurance and strengthening - Not Met ongoing Time frame to achieve treatment goal(s): 2 weeks PLAN Treatment Frequency, Duration and Interventions: Continue Physical Therapy to achieve goals per previously established Plan of Care. gait, transfers, endurance, balance, safety Recommended Physical Therapy Follow Up: Upon acute care discharge, the following is currently recommended: Inpatient Physical Therapy, LESS THAN 60 minutes per day. Recommended Equipment: None issued this visit. Recommended Consults: None currently. Development of Plan of Care: There was no change to plan of care today. If there are any questions regarding this service, please contact the Acute Therapy Department at extension [phone] Location of Patient at End of Therapy Session: In chair, chair alarm in place, call light within reach Services: Total Billed: 24 minutes (Timed: 24, Untimed: 0) 24.00 Timed: [47160] GAIT TRAIN EA 15 MIN 0.00 Untimed: [] PT Treatment- General ORDER Signed by: RENALDO BENAVIDES PTA 08/21/2020 13:44:52 [facility] PATIENT NAME: ANDRE BLANCA [facility] Dr. Andrea MEDICAL REC #: [id number] [place] [address] ADMIT DATE: 07/27/20 SERVICE DATE: 08/21/20 Physical Therapy Progress Note ATTENDING DAMIAN: Marta Horvath DO - CoSigned By: Alivia Patel, PT 08/21/2020 3:20:[address] [facility] PATIENT NAME: ANDRE BLANCA [facility] Dr. Andrea MEDICAL REC #: [id number] [place] [address] ADMIT DATE: 07/27/20 SERVICE DATE: 08/21/20 Physical Therapy Progress Note ATTENDING PHY: Matra Horvath DO Normal [facility] GLUCOSE METERon 08-20-2020 Glucose [Mass/Vol] 119 mg/dL Normal 85-125 [facility] Glucose [Mass/Vol] 103 mg/dL Normal 85-125 [facility] Glucose [Mass/Vol] 154 mg/dL High 85-125 [facility] Glucose [Mass/Vol] 150 mg/dL [facility] 85-[facility]2020 OT Progress Note Normal [facility] OTPN Occupational Therapy Inpatient Treatment Note Medical Diagnosis: Acute hypoxemic respiratory failure, Syncope, pneumonia, hypothyroidism OCCUPATIONAL PROFILE AND HISTORY Demographics: Age: 70Y Gender: Female Primary Language: Estonian Preferred Language: Estonian Referring Service/Team: Medicine Rehabilitation Precautions/Restrictio ns: 4L via NC, puree / nectar diet Patient Report: "IM SORRY, I WENT IN MY PANTS" Patient/Caregiver Goals: None stated Pain: Patient currently without complaints of pain. OBJECTIVE / OCCUPATIONAL PERFORMANCE General Observation: SEEN AM THIS DATE.. PATIENT IN BED. PERIORS OF BEING NON SENSICAL BUT WHEN ASKED A DIRECT QUESTION WAS ABLE TO ANSWER. NOTED ACTIVITY INCREASED PATIENT WAS ABLE TO HAVE APPROPRIATE CONVERSATION AT TIMES. THEAPIST ANSWERED CALL LIGHT, PATIENT UPSET SHE WAS INCONTINENT Activities of Daily Living: Current Status Previous Status ADLs Feeding Supervision Minimal assistance Grooming - Minimal assistance Bathing-UE - Minimal assistance Bathing-LE Maximal assistance Maximal assistance Dressing-UE - Minimal assistance Dressing-LE Maximal assistance Maximal assistance Toileting Maximal assistance Maximal assistance AM-PAC Daily Activities: Putting On/Taking Off Lower Body Clothing: A lot of help needed Bathing:: A lot of help needed Toileting: A lot of help needed Putting On/Taking Off Upper Body Clothing: A little help needed Grooming: A little help needed Eating a Meal: No help needed Raw Score = 16 , AM-PAC t-Scale Score = 35.96 and G-Code Modifier = CK Functional Mobility: [facility] PATIENT NAME: ANDRE BLANCA [facility] Dr. Andrea MEDICAL REC #: [id number] [place] [address] ADMIT DATE: 07/27/20 SERVICE DATE: 08/20/20 Occupational Therapy Progress Note ATTENDING DAMIAN: Marta Horvath DO Bed Mobility: All bed mobility including supine to sit, rolling, scooting. requiring supervision. CUES FOR SAFETY, PATIENT TRYING TO HURRY AND SHE IS STATING SHE NEEDS TO MVE HER BOWELS AGAIN, EDUCATION PROVIDED FOR SAFETY Transfers: Patient transferred to/from the toilet requiring moderate assistance of 1 person. Rolling walker. Patient transferred bed to/from chair requiring moderate assistance of 1 person. Patient used the following equipment: Rolling walker. ABOVE Locomotion/Gait/Ambula tion: Patient was moderate assist with gait/ambulation of 1 person for 15' TO AND FROM THE BATHROOM . Patient requires the following assistive device(s): Rolling walker. ABOVE Interventions: Self Care/Home Management: BED MOBILITY, TRANSFERS BATHING, ADAPTIVE DRESSING IN PULL UP DEPENDS, TOILETING Therapeutic Activities: UNSUPPORTED SITTING BALANCE, FOLLOWING COMMANDS, MAKING NEEDS KNOWN, ORIENTATION WW SAFETY GAIT Pain Reassessment: No significant change in pain during session. Education: Education Provided: Precautions. Plan of care. Safety issues and interventions. Fall protocol. Altered mental status. Impulsivity. Repeated re-orientation. Supervision requirements. Use of adaptive devices. Activities of daily living. Bed mobility. Functional transfers. Home exercise/activity plan. Audience: Patient. Mode: Explanation. Demonstration. Response: Needs practice. Needs reinforcement. No evidence of learning. ASSESSMENT Response to Visit: IMPROVED TOLERANCE TO ADLS AND MOBILITY , DECREASED STRENGTH, ENDURANCE, CONFUSION LIMITING PATIENT IS AT A HIGH RISK FOR FALLS Activity/Participation Problem List and Goals: No updates at this time. Progress Toward Goals: TREATMENT GOAL REVIEW: 1. MOD I SELF CARE - Not Met: ONGOING 2. MOD I FUNCTIONAL TRANSFERS - Not Met ONGOING 3. MOD I FUNCTIONAL MOBILITY FOR GETTING AROUND THE HOUSE - Not Met ONGOING 4. IMPROVED STRENGTH/PULMONARY ENDURANCE TO DO ADL PROJECTED WHILE MAINTAINING O2 SATS ABOVE 92 - Not Met ONGOING 5. MOD I MIN CHALLENGE STANDING TASKS STANDING FOR UP TO 10 MIN AT A TIME W/ MINIMAL TO NO C/O DIZZINESS - Not Met ONGOING 6. PT/FAMILY WILL BE INSTRUCTED IN D/C RECOMMENDATIONS,HOME SAFETY,ADAPTIVE TECHNIQUES/EQUIPMENT AND DEMO UNDERSTANDING FOR FOLLOW THROUGH - Not Met: ONGOING Time frame to achieve treatment goal(s): 5x a wk until d/c [facility] PATIENT NAME: ANDRE BLANCA [facility] Dr. Andrea MEDICAL REC #: [id number] [place] [address] ADMIT DATE: 07/27/20 SERVICE DATE: 08/20/20 Occupational Therapy Progress Note ATTENDING PHY: Marta Horvath DO PLAN Treatment Frequency, Duration and Interventions: Occupational Therapy is recommended for 5X A WK UNTIL D/C Occupational Therapy treatment is to include: ]ADL TRAINING, TRANSFER TRAINING, STANDING BALANCE/ENDURANCE TRAINING, FUNCTIONAL MOBILITY TRAINING, STRENGTHENING,GRADED THERAPEUTIC EXERCISES/ACTIVITIES,P T/FAMILY EDUCATION Recommended Occupational Therapy Follow Up: Upon acute care discharge, the following is currently recommended: Inpatient Occupational Therapy, LESS THAN 60 minutes per day. Equipment Recommended: TBD Recommended Consults: None currently. Development of Plan of Care: Patient participated in plan of care development today. If there are any questions regarding this service, please contact the Acute Therapy Department at extension [phone] Communication to Nursing: No updates at this time. Location of Patient at End of Therapy Session: In chair, chair alarm in place, call light within reach Services: Total Billed: 39 minutes (Timed: 39, Untimed: 0) 24.00 Timed: [65515] ADL-HOME MANAGEMENT EA 15 MIN 15.00 Timed: [98526] THER ACTIVITIES / 15 MIN 0.00 Untimed: [] OT Treatment General ORDER Signed by: SIMONA LLAMAS/Asuncion 08/20/2020 11:31:01 - CoSigned By: ANNIE MEZA/Asuncion 08/20/2020 12:57:[address] [facility] Andrea MEDICAL REC #: [id number] [place] [address] ADMIT DATE: 07/27/20 SERVICE DATE: 08/20/20 Occupational Therapy Progress Note ATTENDING PHY: Marta Horvath DO Normal [facility] PBNP TESTon 08-20-2020 Natriuretic peptide B (Bld) [Mass/Vol] 134 pg/mL Normal 0-450 [facility] Comment on above: Order Comment: Maciel s: M Performed By: #### L [id number] #### [facility] [address] [place] [address]# [phone] PROG IMSon 08-20-2020 PROG [facility]: [facility] [address] Date of : 48 [place], [place] [address] Unit Number: [id number] Progress Note-Hospitalist Patient Status: ADM IN Attending Doctor: Marta Horvath DO Service Date: 08/20/20 1421 Chief Complaint Chief Complaint Syncope Subjective S: (2 ROS minimum) Patient seen and examined at bedside. She states she was having chest pains earlier, but did clarify that her breasts were hurting he was having some nausea after breakfast. She claims that she was having 7-8 watery bowel movements a day. I had spoken personally to the nursing staff they had stated that she had 1 small bowel movement yesterday. Objective (ROS) Nursing Vitals Vital Signs (Last) Result Date Time Pulse Ox 91 08/20 799 O2 Delivery NASAL CANNULA 08/20 799 B/P 118/58 08/20 699 O2 Flow Rate 3 08/20 699 Temp 97.6 08/20 699 Pulse 76 08/20 699 Resp 18 08/20 699 B/P Mean 79 08/18 606 Physical Exam Physical Examination Notes General: Patient is alert and oriented x3 and is in no acute respiratory distress HEENT: Normal cephalic, atraumatic, PERRLA, TM's normal, Nose clear, Mouth normal Neck: Negative hepatojugular reflux or jugular venous distention, negative carotid bruit. Lungs: Clear to auscultation bilaterally Cardiac: Regular rhythm and rate, S1-S2 within normal limits, no murmurs, gallops were appreciated, no rubs. Abdomen: Soft, nontender, nondistended, no HSM detected, bowel sounds are active. Extremities: No edema, cyanosis, or clubbing. Skin: No rashes or breakdown. Musculoskeletal: Normal MS exam, moves all extremities, DTR's normal Lymphatic: Negative cervical, supra-clavicular, groin lymphadenopathy. Neurologic: Cranial nerves from II-XII intact grossly, no focal deficits. Psychiatry: Normal affect. Diagnostic Data: Lab 24hr [facility] 08/20/20 1157: SARS-CoV-2 (PCR) Pending 08/20/20 1153: Whole Bld Glucose 154 H 08/20/20 0810: Whole Bld Glucose 150 H 08/19/20 2101: Whole Bld Glucose 149 H 08/19/20 1707: Whole Bld Glucose 121 Assessment and Plan Conclusion 1. Acute respiratory failure with hypoxia Secondary to COPD exacerbation and aspiration pneumonia. 2. Bipolar 1 disorder, mixed, moderate On Mon:09p Aug 19, 2020 ESTEVAN BAUER wrote Continue Tegretol 200 mg 3 times daily, Prozac 20 mg daily, Seroquel 100 mg at night, Risperdal 3 mg twice daily, and IV Haldol as needed. Psychiatry is consulted. 3. TASHI (acute kidney injury) On Mon:Aug 19, 2020 ESTEVAN BAUER wrote Resolved. Creatinine is back at baseline. 4. Syncope 5. Obesity On Mon:Aug 19, 2020 ESTEVAN BAUER wrote BMI 41.9 6. COPD exacerbation On Mon:Aug 19, 2020 ESTEVAN BAUER wrote Continue breathing treatments in the hospital. Will need to be discharged with LABA/ICS. She will need PFTs performed outpatient. Follow-up with pulmonology in 4 to 6 weeks. 7. Acute delirium On Mon:Aug 19, 2020 ESTEVAN BAUER wrote Continue reorienting patient. Minimize usage of Haldol. 8. Hypothyroidism On Mon:Aug 19, 2020 ESTEVAN BAUER wrote Continue levothyroxine. 9. HLD (hyperlipidemia) On Mon:Aug 19, 2020 ESTEVAN BAUER wrote Continue statin. 10. History of ischemic stroke On Mon:Aug 19, 2020 ESTEVAN BAUER wrote Continue statin. Patient should be on aspirin for secondary stroke prevention. We will review medications. Statement of Attestation Continue weaning oxygen as tolerated. Patient is currently on 3 L nasal cannula. Awaiting approval to be discharged to longterm facility for rehab. I confirm that I have evaluated the patient, reviewed the history and physical, medications, diagnostic results, physical exam, assessment and plan of care of the patient. Disclaimer This dictation was created using voice recognition software. Phonetic and/or minor grammatical errors may exist. eSign Date and Time Estevan Bauer DO Verified/Reviewed by 08/20/20 1427 [facility] Progress Note-Hospitalist [facility]: ANDRE BLANCA [address] [employer] [address] Date of : [address] [place] [address] Unit Number: [id number] Progress Note-Pulmonology Patient Status: ADM IN Attending Doctor: Marta Horvath DO Service Date: 08/20/20 1301 Progress Note-Pulmonology Subjective Subjective: Sitting up in chair, eating lunch, continues to get stronger every day Objective Vital Signs: Vital Signs (Last) Result Date Time Pulse Ox 91 08/20 799 O2 Delivery NASAL CANNULA 08/20 799 B/P 118/58 08/20 699 O2 Flow Rate 3 08/20 699 Temp 97.6 08/20 699 Pulse 76 08/20 699 Resp 18 08/20 699 B/P Mean 79 08/18 606 IandO 24 Hour Summary 08/20 0000 Intake Total 470 Output Total 955 Balance -485 Intake, Oral 470 Number 3 Unmeasured Voids Output, Stool 5 Output, Urine 950 Patient 215 lb Weight Exam: Gen: Alert and Oriented x 3, NAD HEENT:NC, AT, BHARGAV, EOMI, mmm Neck: Supple, no rigidity, Trachea is midline, no LAD Lungs: Coarse Rhonchi bilaterally Heart: RRR, S1/S2, no m/r/g Abd: Soft, NT/ND, +BS X 4 Ext: +1 Edema, + pulses Neuro: CN II - XII Grossly intact, no sensory/motor deficits noted Medications: Medications Current Sig/Antonella Start time Last Medication Dose Route Stop Time Status Admin Acetaminophen 500 MG Q6HPRN PRN 08/04 193 AC 08/20 (TYLENOL ORAL LIQ) TUBE 0531 Albuterol Sulfate 2.5 MG Q6HPRN PRN 07/28 0030 AC (VENTOLIN/PROVENTIL INH 2.5MG/3ML INH.NEB) Albuterol/Ipratropium 3 ML QIDRT 08/18 1230 AC 08/20 (DUONEB 0.5-3 MG/3 INH 1238 ML INH.NEB) Albuterol/Ipratropium 3 ML Q2HPRN PRN 07/28 0100 AC (DUONEB 0.5-3 MG/3 INH ML INH.NEB) Budesonide 0.5 MG BID 08/04 2100 AC 08/20 (PULMOCORT 0.5MG/2ML INH 0859 INH.NEB) Buspirone HCl 10 MG TIDWM 08/12 1200 AC 08/20 (BUSPAR TAB) TUBE 1236 Carbamazepine 200 MG TIDWM 08/17 1330 AC 08/20 (TEGRETOL TAB.CHEW) PO 1236 Clopidogrel Bisulfate 75 MG QDAY 08/18 0900 AC 08/20 (PLAVIX TAB) PO 09 Enoxaparin Sodium 40 MG QDAY 07/28 0900 AC 08/20 (LOVENOX D.SYR) SC 0914 Esomeprazole 20 MG BIDAC 08/17 1908 AC 08/20 Magnesium PO 0611 (NEXIUM CAP (TXI)) Fluoxetine HCl 20 MG QDAY 08/18 0900 AC 08/20 (PROZAC CAP) PO 0913 Guaifenesin 10 ML TID 08/11 1400 AC 08/20 (ROBITUSSIN 200MG/10 TUBE 0913 ML ORAL LIQ) Haloperidol Lactate 2 MG Q4HPRN PRN 08/07 0900 AC 08/18 (HALDOL AMP) IV 0615 Heparin Sodium See Dose Q24H 08/06 0900 AC 08/20 (Porcine) Insts (1) IV 1039 (HEP-LOCK *10*UNITS/ ML IV D.SYR.PF) Heparin Sodium See Dose PRN PRN 08/05 1500 AC 08/17 (Porcine) Insts (2) IV 0048 (HEP-LOCK *10*UNITS/ ML IV D.SYR.PF) Insulin Human Lispro See Dose WMHS 08/19 0800 AC 08/20 (humaLOG/novoLOG PEN) Insts (3) SC 1237 Levothyroxine Sodium 0.125 MG QDAYAC 08/09 0700 AC 08/20 (SYNTHROID TAB) PO 0610 Loperamide HCl 2 MG PRN PRN 08/04 1930 AC 08/20 (IMODIUM AD ORAL TUBE 0922 LIQUID UDC) Menthol/Methyl 1 APPL BIDPRN PRN 07/28 0030 AC 08/15 Salicylate TP 204 (MIHIR ALVAREZ T.CREAM) Ondansetron HCl 4 MG BIDPRN PRN 08/17 1600 AC (ZOFRAN TAB) PO Ondansetron HCl 4 MG Q6HPRN PRN 07/27 2100 AC 08/04 (ZOFRAN VIAL) IV 212 Pravastatin Sodium 40 MG QHS 08/17 2200 AC 08/19 (PRAVACHOL TAB) PO 213 Pregabalin 150 MG BID 08/17 2100 AC 08/20 (LYRICA CAP) PO 09 Quetiapine Fumarate 100 MG QHS 08/08 2200 AC 08/19 (SEROQUEL TAB) TUBE 2138 Risperidone 3 MG BID 08/17 2100 AC 08/20 (RISPERDAL TAB) PO 1038 Sodium Chloride See Dose Q24H 08/06 0900 AC 08/20 (Sodium Chloride Insts (4) IV 1039 0.9% FLUSH D.SYR) Sodium Chloride See Dose PRN PRN 08/05 1500 AC 08/16 (Sodium Chloride Insts (5) IV 1239 0.9% FLUSH D.SYR) Dose Instructions: (1)Heparin Sodium (Porcine) (HEP-LOCK *10*UNITS/ML IV D.SYR.PF): 50-200 UNITS (2)Heparin Sodium (Porcine) (HEP-LOCK *10*UNITS/ML IV D.SYR.PF): 50-200 UNITS (3)Insulin Human Lispro (humaLOG/novoLOG PEN): 1-8 Units (4)Sodium Chloride (Sodium Chloride 0.9% FLUSH D.SYR): 10-40 ML (5)Sodium Chloride (Sodium Chloride 0.9% FLUSH D.SYR): 10-40 ML ABG: ABG-Last Test Result Date Time Blood Gas Specimen Type ARTERIAL 08/19 34 Sample Site L RADIAL 08/19 34 Patient Temperature (C) 37.0 08/19 34 pH (7.35 - 7.45) 7.40 08/19 34 pCO2 (35 - 45 MMHG) 61.9 *H 08/19 34 pO2 (80 - 100 MMHG) 78 L 08/19 34 HCO3 (22 - 26 MMOL/L) 37.1 H 08/19 34 Base Excess (-2.0 - 2.0 MML/L) 10.6 H 08/19 34 ABG O2 Sat (Measured) (90 - 100 %) 93.8 08/19 34 ABG Oximetry (%) 95 08/19 34 ABG O2 Content (15.7 - 21.6 mL/dL) 12.0 L 08/19 34 ABG Hemoglobin (10 - 16 GM/DL) 9.0 L 08/19 34 ABG Reduced Hgb (0 - 5 %) 5.6 H 08/19 34 ABG Carboxyhemoglobin (0 - 10 %) 0.3 08/19 34 ABG Methemoglobin (0.4 - 1.5 %) 0.3 L 08/19 34 ABG O2 Capacity (mL/dL) 12.4 08/19 34 Doug Test POSITIVE 08/19 34 Sodium (136 - 148 mmol/L) 147 08/11 538 Potassium (3.5 - 5.0 MMOL/L) 3.2 L 08/11 538 Glucose (60 - 80 MG/DL) 174 H 08/11 538 Lactate Cancelled 08/16 0500 Patient Equipment NASAL CANNULA 08/19 34 Liter Flow (L/M) 5.00 08/19 34 FiO2 % (%) 52 08/11 0538 Lab Results: Lab 24hr (CBC/BMP Fishbone) 08/20/20 1157: SARS-CoV-2 (PCR) Pending 08/20/20 1153: Whole Bld Glucose 154 H 08/20/20 0810: Whole Bld Glucose 150 H 08/19/20 2101: Whole Bld Glucose 149 H 08/19/20 1707: Whole Bld Glucose 121 Assessment/Plan Assessment/Problem List: 1. Acute hypoxemic respiratory failure 70 y/o with PMHx of COPD, HFpEF, Ischemic Stroke who initially was admitted with Syncope to Med Surg on 07/27, followed by a transfer to ICU on 08/04 for worsening hypoxemia and transfer to [facility] on 08/18. ASSESSMENT: - Acute Hypoxemic and Hypercarbic Respiratory Failure - LLL Aspiration Pneumonia - Decompensated HFpEF (Stage I in 07/2020) - Dysphagia - Hx of COPD w/t Centrilobular Emphysema (No PFTs on file) - Tobacco Abuse in Remission - Morbid Obesity PLAN: - Currently oxygenating adequately on 2 L of NC ; Continue to wean with Goal SpO2 > 90% ; will likely need Home O2 evaluation upon discharge. - Continue BiPAP 14/8 qHS, with naps and PRN during the day ; Recommend PSG as outpatient - Finished 7 days of Unasyn on 08/11 ; Urine Ag/SARS-CoV-2 all negative ; NGTD on sputum cultures - Autodiuresing well with I/O of -250 ml from yesterday - Continue Duonebs and Budesonide while in the hospital; Resume Home Symbicort upon discharge ; Strongly recommend complete PFT's as outpatient - Will need aggressive PT/OT and Speech therapy to help improve her functional decline. - Recommend follow up with myself or Yamileth Corbin CNP in 4-6 weeks as outpatient. - Code Status: DNR- CCA ( OK for intubation) - Discussed by Dr. Loera with patient's son on 08/11. - [facility] will sign off. Please reconsult if needed. Disclaimer This dictation was created using voice recognition software. Phonetic and/or minor grammatical errors may exist. eSign Date and Time Marge Beckman DO Verified/Reviewed by 08/20/20 1303 [facility] Progress Note-Pulmonology [facility] PTPNon 08-20-2020 PT Progress Note [facility] PTPN Physical Therapy Inpatient Treatment Note Medical Diagnosis: 1. Acute hypoxemia respiratory failure 2. Syncope 3. Hypothyroidism multiple rib fxs Demographics: Age: 70Y Gender: Female Primary Language: Estonian Preferred Language: Estonian Rehabilitation Precautions/Restrictio ns: 4L via NC, puree / nectar diet SUBJECTIVE Patient Report: "I'm sitting here". Everything (when asked if in any pain and what hurts)" Patient/Caregiver Goals: None stated Pain: Patient unable to communicate level of pain. Clinical indicators of pain include: Grimacing. Interventions: Repositioned patient. OBJECTIVE General Observation: Pt seated in recliner upon arrival. Agreeable to session. Speech difficult to understand at times Functional Activities After Today's Session: Transfers: TX:sit<->stand w/ MOD A from low bedside recliner to ww. Static standing x 3 trials w/ LE's shaky and buckling w/ prolonged stand and weight shifting. Locomotion/Ambulation: Patient was moderate assist with gait/ambulation of 1 person for 2 steps forward . Patient requires the following assistive device(s): Rolling walker. LE's buckling. Pt initially distracted letting go of walker handle w/ one hand. Thex:seated (B) LE x 15 reps. ea. including AP, LAQ, Marching, hip add using towel roll w/ pt able to count reps out loud w/ therapist. Rest breaks as needed. AM-PAC Basic Mobility: Turning Over in Bed: A little difficulty Sitting/Standing Chair with Arms: A lot of difficulty Lying on Back to Sitting on Side of Bed: A little difficulty Moving To/From Bed to Chair: A little help needed [facility] PATIENT NAME: ANDRE BLANCA [facility] Dr. Andrea MEDICAL REC #: [id number] [place] [address] ADMIT DATE: 07/27/20 SERVICE DATE: 08/20/20 Physical Therapy Progress Note ATTENDING DAMIAN: Marta Horvath DO Walking in Hospital Room: A lot of help needed Climbing 3-5 Steps with Railing: A lot of help needed Raw Score = 15 , AM-PAC t-Scale Score = 39.45 and G-Code Modifier = CK Vital Signs: SpO2 94-95%. SOB observed w/ activity. Interventions: Therapeutic Activities: functional transfer training,, standing balance w/ (B) UE support, LE thex and monitoring of SpO2. Pain Reassessment: No significant change in pain during session. Education: Education Provided: Plan of care. Functional transfers. Safety. Gait. Home exercise/activity plan. Audience: Patient. Mode: Explanation. Demonstration. Response: Needs practice. ASSESSMENT Response to Visit: Tolerated fairly w/o SOB w/ exertion. Pt w/ decreased strength, balance, mobility and endurance all making pt a fall risk needing hands on assist when up. Pt will require continued inpt skilled therapies to improve overall function and safety. Activity/Participation Problem List and Goals: No updates at this time. Progress Toward Goals: TREATMENT GOAL REVIEW: 1. Pt transfer MOD I - Not Met: ongoing 2. Pt ambulate at least 50 feet WW MOD I - Not Met ongoing 3. Demo independence with LE thex for endurance and strengthening - Not Met ongoing Time frame to achieve treatment goal(s): 2 weeks PLAN Treatment Frequency, Duration and Interventions: Continue Physical Therapy to achieve goals per previously established Plan of Care. gait, transfers, endurance, balance, safety Recommended Physical Therapy Follow Up: Upon acute care discharge, the following is currently recommended: Inpatient Physical Therapy, LESS THAN 60 minutes per day. Recommended Equipment: None issued this visit. Recommended Consults: None currently. Development of Plan of Care: There was no change to plan of care today. If there are any questions regarding this service, please contact the Acute Therapy Department at extension [phone] [facility] PATIENT NAME: ANDRE BLANCA Dr. Andrea MEDICAL REC #: [id number] [place] [address] ADMIT DATE: 07/27/20 SERVICE DATE: 08/20/20 Physical Therapy Progress Note ATTENDING PHY: Marta Horvath DO Location of Patient at End of Therapy Session: In chair, chair alarm in place, call light within reach Services: Total Billed: 24 minutes (Timed: 24, Untimed: 0) 24.00 Timed: [45746] THER ACTIVITIES / 15 MIN 0.00 Untimed: [] PT Treatment- General ORDER Signed by: RENALDO BENAVIDES PTA 08/20/2020 13:52:13 - CoSigned By: SINDHU MONTANEZ PT 08/20/2020 4:07:[address] [facility] PATIENT NAME: ANDRE BLANCA Traci Andrea MEDICAL REC #: [id number] [place] [address] ADMIT DATE: 07/27/20 SERVICE DATE: 08/20/20 Physical Therapy Progress Note ATTENDING PHY: Marta Horvath DO Normal [facility] [id number] 08-20-2020 SARS-CoV-2 Negative Normal Negative [facility] Comment on above: Order Comment: Campu s: M What is the source? URINE Result Comment: Nega tive results do not preclude SARS-CoV-2 infection and should not be used as the sole basis for patient management decisions. Negative results must be combined with clinical observations, patient history, and epidemiological information. RESULTS CALLED TO Hollie VERDUGO AT 1921 08/20/20 BY KEYON HENNESSY Performed By: #### M 150.72148, M150.77707 #### [facility] [address] [place] [address] ABGPon 08-19-2020 ABG BE 10.6 MML/L High -2.0-2.0 [facility] Comment on above: Order Comment: Campu s: M Performed By: #### L 200.17349 #### [facility] [address] [place] [address] ABG COHBA 0.3 % Normal 0-10 [facility] Comment on above: Order Comment: Campu s: M Performed By: #### L 200.03540 #### [facility] [address] [place] [address] ABG HCO3 37.1 MMOL/L High 22-26 [facility] Comment on above: Order Comment: Campu s: M Performed By: #### L 200.97521 #### [facility] [address] [place] [address] 25794 ABG MET 0.3 % Low 0.4-1.5 [facility] Comment on above: Order Comment: Campu s: M Performed By: #### L 200.64680 #### [facility] [address] [place] [address]113 ABG O2 CAPACITY 12.4 mL/dL Normal [facility] Comment on above: Order Comment: Campu s: M Performed By: #### L 200.61747 #### [facility] [address] [place] [address] [place] [address] ABG O2 CONTENT 12.0 mL/dL Low 15.7-21.6 [facility] Comment on above: Order Comment: Abundiou s: M Performed By: #### L 200.39658 #### [facility] [address] [place] [address] ABG O2HB SAT 93.8 % Normal 90-100 [facility] Comment on above: Order Comment: Campu s: M Performed By: #### L 200.24785 #### [facility] [address] [place] [address] ABG PCO2 61.9 MMHG Critically high 35-45 [facility] Comment on above: Order Comment: Abundiou s: M Result Comment: CRIT ICAL VALUE(S) VERIFIED AND HAND DELIVERED TO AND READ BACK BY GEE DALTON AT 0047 08/19/20 BY LORENA CRABTREE Performed By: #### L 200.34261 #### [facility] [place] [address] ABG PH 7.40 Normal 7.35-7.45 [facility] Comment on above: Order Comment: Campu s: M Performed By: #### L 200.15082 #### [facility] [address] [place] [address] ABG PO2 78 MMHG Low 80-100 [facility] Comment on above: Order Comment: Campu s: M Performed By: #### L 200.71220 #### [facility] [address] [place] [address] DOUG TEST Positive Normal [facility] Comment on above: Order Comment: Campu s: M Performed By: #### L 200.83879 #### [facility] [address] [place] [address] aPTT Coag (Bld) [Time] 37.0 C Normal [facility] Comment on above: Order Comment: Campu s: M Performed By: #### L 200.39240 #### [facility] [address] [place] [address] EQUIPMENT NASAL CANNULA Normal [facility] Comment on above: Order Comment: Campu s: M Performed By: #### L 200.40355 #### [facility] [address] [place] [address] Hemoglobin (Bld) [Mass/Vol] 9.0 g/dL Low 10-16 [facility] Comment on above: Order Comment: Campu s: M Performed By: #### L 200.90968 #### [facility] [address] [place] [address]653 Hemoglobin (Bld) [Mass/Vol] 5.6 % High 0-5 [facility] Comment on above: Order Comment: Campu s: M Performed By: #### L 200.66717 #### [facility] [address] [place] [address]48[address] LITERFLOW 5.00 L/M [facility] Comment on above: Order Comment: Campu s: M Performed By: #### L 200.55899 #### [facility] [address] [place] [address]1978 Oxygen saturation in Blood 95 % [facility] Comment on above: Order Comment: Campu s: M Performed By: #### L 200.02270 #### [facility] [address] [place] [address] 17920 SAMPLE SITE L RADIAL Normal [facility] Comment on above: Order Comment: Campu s: M Performed By: #### L 200.02167 #### [facility] [address] [place] [address] SAMPLE TYPE ARTERIAL Normal [facility] Comment on above: Order Comment: Campu s: M Performed By: #### L 200.67963 #### [facility] [address] [place] [address] BMPon 08-19-2020 Anion gap [Moles/Vol] 3 mmol/L Low 5-16 [facility] Comment on above: Order Comment: Campu s: M Performed By: #### L 500.54766, L500.64802, L500.81922, L500.06180 ####[facility] [id number] [place], [place] [address]Dw# [phone] Calcium [Mass/Vol] 8.5 mg/dL Normal 8.5-10.5 [facility] Comment on above: Order Comment: Campu s: M Result Comment: NOTE NEW NORMAL RANGE DUE TO REAGENT CHANGE Performed By: #### L 500.51795, L500.39143, L500.53827, L500.49623 ####[facility] [id number] [place], [place] [address]Yy# [phone] Chloride [Moles/Vol] 100 mmol/L Normal 98-107 [facility] Comment on above: Order Comment: Campu s: M Performed By: #### L 500.14722, L500.07567, L500.66241, L500.90275 ####[facility] [id number] [place], [place] [address]Vp# [phone] CO2 [Moles/Vol] 37.0 mmol/L High 21-32 [facility] Comment on above: Order Comment: Campu s: M Performed By: #### L 500.99790, L500.08075, L500.78041, L500.04289 ####[facility] [id number] [place], [place] [address]Yi# [phone] Creatinine [Mass/Vol] 0.66 mg/dL Normal 0.510-0.950 [facility] Comment on above: Order Comment: Campu s: M Result Comment: Geraldine ents receiving either N-Acetylcysteine (NAC) or Metamizole prior to venipuncture, may have falsely depressed results. Performed By: #### L 500.49469, L500.82222, L500.59995, L500.10463 ####[facility] [id number] [place], [place] [address]Ej# [phone] Glucose [Mass/Vol] 148 mg/dL High 70-100 [facility] Comment on above: Order Comment: Campu s: M Result Comment: 70-1 00- Normal Fasting; 100-125 Impaired Fasting; greater than 126 on more than one result- Diabetes. ADA guidelines. Results may be falsely elevated after the administration of Sulfapyridine. Results may be falsely depressed after the administration of Sulfasalazine. Performed By: #### L 500.35028, L500.01991, L500.10484, L500.13717 ####[facility] [id number] [place], [place] [address]Ez# [phone] Potassium [Moles/Vol] 4.0 mmol/L Normal 3.5-5.1 [facility] Comment on above: Order Comment: Campu s: M Result Comment: Slig ht Hemolysis, Result may be affected. Performed By: #### L 500.75029, L500.84460, L500.70747, L500.44988 ####[facility] [id number] [place], [place] [address]Wb# [phone] Sodium [Moles/Vol] 140 mmol/L Normal 136-145 [facility] Comment on above: Order Comment: Campu s: M Performed By: #### L 500.37810, L500.87238, L500.89824, L500.58845 ####[facility] [id number] [place], [place] [address]Tr# [phone] Urea nitrogen [Mass/Vol] 8 mg/dL Normal 7-26 [facility] Comment on above: Order Comment: Campu s: M Performed By: #### L 500.41406, L500.36716, L500.17045, L500.05695 ####[facility] [id number] [place], [place] [address]Go# [phone] Urea nitrogen/Creatinine [Mass ratio] 12 mg/mg Low 15-24 [facility] Comment on above: Order Comment: Campu s: M Performed By: #### L 500.42977, L500.04761, L500.89913, L500.47937 ####[facility] [id number] [place], [place] [address]Lj# [phone] CBC W/DIFFon 08-19-2020 BASO ABS 0.10 K/CU MM Normal 0-0.2 [facility] Comment on above: Order Comment: Campu s: M Performed By: #### L 200.29205 ####[facility] [id number] [place], [place] [address]Ca# [phone] Basophils/100 WBC (Bld) 1.2 % Normal 0-2 [facility] Comment on above: Order Comment: Campu s: M Performed By: #### L 200.84137 ####[facility] [id number] [place] [address]Ek# [phone] EOS ABS 0.30 K/CU MM Normal 0-0.5 [facility] Comment on above: Order Comment: Campu s: M Performed By: #### L 200.16430 ####[facility] [id number] [place], [place] [address]Zy# [phone] Eosinophils/100 WBC (Bld) 4.4 % Normal 0-5 [facility] Comment on above: Order Comment: Campu s: M Performed By: #### L 200.17127 ####[facility] [id number] [place] [address]Iv# [phone] Erythrocyte distribution width (RBC) [Ratio] 15.9 % High 11-14.5 [facility] Comment on above: Order Comment: Campu s: M Performed By: #### L 200.48200 ####[facility] [id number] [place] [address]Hq# [phone] Hematocrit (Bld) [Volume fraction] 26.9 % Low 35.0-47.0 [facility] Comment on above: Order Comment: Campu s: M Performed By: #### L 200.99634 ####[facility] [id number] [place] [address]Fu# [phone] Hemoglobin (Bld) [Mass/Vol] 8.0 g/dL Low 11.5-15.5 [facility] Comment on above: Order Comment: Campu s: M Performed By: #### L 200.09337 ####[place] [address]Ph# [phone] IMMATR GRAN ABS 0.10 K/CU MM Normal Less than 2 [facility] Comment on above: Order Comment: Campu s: M Performed By: #### L 200.84259 ####[place] [address]Ph# [phone] IMMATURE GRAN % 0.8 % Normal Less than 2 [facility] Comment on above: Order Comment: Campu s: M Performed By: #### L 200.69089 ####[place] [address]Ph# [phone] Lymphocytes (Bld) [#/Vol] 1.50 K/CU MM Normal 0.9-4.4 [facility] Comment on above: Order Comment: Campu s: M Performed By: #### L 200.90595 ####[facility] [id number] [place], [place] [address]Ph# [phone] Lymphocytes/100 WBC (Bld) 23.1 % Normal 20-40 [facility] Comment on above: Order Comment: Campu s: M Performed By: #### L 200.48850 ####[facility] [id number] [place] [address]Xk# [phone] MCHC (RBC) [Mass/Vol] 29.7 g/dL Low 32.0-36.0 [facility] Comment on above: Order Comment: Campu s: M Performed By: #### L 200.53704 ####[facility] [id number] [place], [place] [address]Xq# [phone] MCV (RBC) [Entitic vol] 98.2 fL Normal 80.0-99.0 M [facility] Comment on above: Order Comment: Campu s: M Performed By: #### L 200.33243 ####[facility] [id number] [place] [address]Iy# [phone] MONO ABS 0.50 K/CU MM Normal 0.1-1.1 [facility] Comment on above: Order Comment: Campu s: M Performed By: #### L 200.63117 ####[address] [address]Bl# [phone] Monocytes/100 WBC (Bld) 7.8 % Normal 2-10 M [facility] Comment on above: Order Comment: Campu s: M Performed By: #### L 200.04446 ####[facility] [id number] [place] [address]Uy# [phone] NEUTROPHIL ABS 4.10 K/CU MM Normal 2.0-8.3 [facility] Comment on above: Order Comment: Campu s: M Performed By: #### L 200.87611 ####[facility] [id number] [place] [address]Gp# [phone] Neutrophils/100 WBC (Bld) 62.7 % Normal 45-75 [facility] Comment on above: Order Comment: Campu s: M Performed By: #### L 200.00880 ####[facility] [id number] [place] [address]Kp# [phone] Nucleated RBC/100 WBC (Bld) [Ratio] 0.0 % Normal Less than 1 [facility] Comment on above: Order Comment: Campu s: M Performed By: #### L 200.64512 ####[facility] [id number] [place], [place] [address]Ph# [phone] Platelet mean volume (Bld) [Entitic vol] 10.2 fL Normal 9.4-12.4 [facility] Comment on above: Order Comment: Campu s: M Performed By: #### L 200.38192 ####[facility] [id number] [place], [place] [address]Yx# [phone] Platelets (Bld) [#/Vol] 425 K/CU MM Normal 150-450 [facility] Comment on above: Order Comment: Campu s: M Performed By: #### L 200.95725 ####[facility] [id number] [place], [place] [address]Jm# [phone] RBC (Bld) [#/Vol] 2.74 M/CU MM Low 3.90-5.30 [facility] Comment on above: Order Comment: Campu s: M Performed By: #### L 200.53923 ####[facility] [id number] [place] [address]Hb# [phone] WBC (Bld) [#/Vol] 6.6 K/CUMM Normal 4.5-11.0 [facility] Comment on above: Order Comment: Campu s: M Performed By: #### L 200.11275 ####[facility] [id number] [place] [address]Gt# [phone] GFR ESTon 08-19-2020 IF AMER Greater than 60 Normal [facility] Comment on above: Order Comment: Campu s: M Performed By: #### L 500.46505, L500.35635, L500.33911, L500.62496 ####[facility] [id number] [place], [place] [address]Wi# [phone] IF non-AFR AMER Greater than 60 Normal [facility] Comment on above: Order Comment: Campu s: M Performed By: #### L 500.73078, L500.89834, L500.67085, L500.63491 ####[facility] [id number] [place], [place] [address]Hm# [phone] GLUCOSE METERon 08-19-2020 Glucose [Mass/Vol] 149 mg/dL High 85-125 [facility] Glucose [Mass/Vol] 121 mg/dL Normal 85-125 [facility] Glucose [Mass/Vol] 118 mg/dL Normal 85-125 [facility] Glucose [Mass/Vol] 155 mg/dL High 85-125 [facility] Glucose [Mass/Vol] 115 mg/dL Normal 85-125 [facility] Glucose [Mass/Vol] 149 mg/dL High 85-125 [facility] MAGNESIUMon 08-19-2020 Magnesium [Mass/Vol] 1.9 MG/CL Normal 1.6-2.6 [facility] Comment on above: Order Comment: Maciel joe: Ramiro Performed By: #### L 500.12338, L500.51255, L500.77227, L500.91386 ####[facility] [id number] [place], [place] [address]Tb# [phone] OTPNon 08-19-2020 OT Progress Note Normal [facility] OTPN Occupational Therapy Inpatient Treatment Note Medical Diagnosis: Acute hypoxemic respiratory failure, Syncope, pneumonia, hypothyroidism OCCUPATIONAL PROFILE AND HISTORY Demographics: Age: 70Y Gender: Female Primary Language: Estonian Preferred Language: Estonian Referring Service/Team: Medicine Rehabilitation Precautions/Restrictio ns: 4L via NC, puree / nectar diet Patient Report: " IM HUNGRY." Patient/Caregiver Goals: "Can I have some ice?" Pain: Patient currently without complaints of pain. OBJECTIVE / OCCUPATIONAL PERFORMANCE General Observation: SEEN AM THIS DATE.. PATIENT IN BED NON SENSICAL BUT WHEN ASKED A DIRECT QUESTION WAS ABLE TO ANSWER. NOTED ACTIVITY INCREASED PATIENT WAS ABLE TO HAVE APPROPRIATE CONVERSATION AT TIMES WAS AGREEABLE TO GET TO CHAIR FOR BREAFAST Activities of Daily Living: Current Status Previous Status ADLs Feeding - Minimal assistance Grooming - Minimal assistance Bathing-UE - Minimal assistance Bathing-LE - Maximal assistance Dressing-UE - Minimal assistance Dressing-LE - Maximal assistance Toileting - Maximal assistance AM-PAC Daily Activities: Putting On/Taking Off Lower Body Clothing: A lot of help needed Bathing:: A lot of help needed Toileting: A lot of help needed Putting On/Taking Off Upper Body Clothing: A little help needed Grooming: A little help needed Eating a Meal: A little help needed Raw Score = 15 , AM-PAC t-Scale Score = 34.69 and G-Code Modifier = CK Functional Mobility: [facility] PATIENT NAME: ANDRE BLANCA [address] [address] Andrea MEDICAL REC #: [id number] [place] [address] ADMIT DATE: 07/27/20 SERVICE DATE: 08/19/20 Occupational Therapy Progress Note ATTENDING DAMIAN: Marta Horvath DO Bed Mobility: All bed mobility including supine to sit, rolling, scooting. requiring moderate assistance. LOG ROLLING TO RIGHT AND SUPINE TO SIT Transfers: Patient transferred bed to/from chair requiring moderate assistance of 1 person. Patient used the following equipment: Rolling walker. CUES FOR HAND PLACEMENT / WW SAFETY Locomotion/Gait/Ambula tion: Not assessed/applicable Interventions: Self Care/Home Management: BED MOBILITY, TRANSFERS, WWSAFETY, FOLLOWING COMMANDS, ORIENTTION, MAKING NEEDS KNOWN Pain Reassessment: No significant change in pain during session. Education: Education Provided: Precautions. Plan of care. Safety issues and interventions. Fall protocol. Supervision requirements. Use of adaptive devices. Repeated re-orientation. Impulsivity. Activities of daily living. Bed mobility. Functional transfers. Audience: Patient. Mode: Explanation. Demonstration. Response: Needs practice. Needs reinforcement. No evidence of learning. ASSESSMENT Response to Visit: IMPROVED TOLERANCE TO ADLS AND MOBILITY , DECREASED STRENGTH, ENDURANE, CONFUSION LIMITING PATIENT IS AT A HIGH RISK FOR FALLS Activity/Participation Problem List and Goals: No updates at this time. Progress Toward Goals: TREATMENT GOAL REVIEW: 1. MOD I SELF CARE - Not Met: ongoing 2. MOD I FUNCTIONAL TRANSFERS - Not Met ongoing 3. MOD I FUNCTIONAL MOBILITY FOR GETTING AROUND THE HOUSE - Not Met ongoing 4. IMPROVED STRENGTH/PULMONARY ENDURANCE TO DO ADL PROJECTED WHILE MAINTAINING O2 SATS ABOVE 92 - Not Met ongoing 5. MOD I MIN CHALLENGE STANDING TASKS STANDING FOR UP TO 10 MIN AT A TIME W/ MINIMAL TO NO C/O DIZZINESS - Not Met ongoing Time frame to achieve treatment goal(s): 5x a wk until d/c PLAN Treatment Frequency, Duration and Interventions: Occupational Therapy is recommended for 5X A WK UNTIL D/C Occupational Therapy treatment is to include: ]ADL TRAINING, TRANSFER TRAINING, STANDING BALANCE/ENDURANCE TRAINING, FUNCTIONAL MOBILITY TRAINING, STRENGTHENING,GRADED THERAPEUTIC EXERCISES/ACTIVITIES,P T/FAMILY EDUCATION Recommended Occupational Therapy Follow Up: Upon acute care discharge, the following is currently recommended: [facility] PATIENT NAME: ANDRE BLANCA [facility] Dr. Andrea MEDICAL REC #: [id number] [place] [address] ADMIT DATE: 07/27/20 SERVICE DATE: 08/19/20 Occupational Therapy Progress Note ATTENDING PHY: Marta Horvath DO Inpatient Occupational Therapy, LESS THAN 60 minutes per day. Equipment Recommended: TBD Recommended Consults: None currently. Development of Plan of Care: Patient participated in plan of care development today. If there are any questions regarding this service, please contact the Acute Therapy Department at extension [phone] Communication to Nursing: No updates at this time. Location of Patient at End of Therapy Session: In chair, call light within reach telesitter Services: Total Billed: 23 minutes (Timed: 23, Untimed: 0) 23.00 Timed: [19800] ADL-HOME MANAGEMENT EA 15 MIN 0.00 Untimed: [] OT Treatment General ORDER Signed by: ROSEANNA LLAMAS 08/19/2020 11:57:19 - CoSigned By: Cayla Rios OT 08/19/2020 3:53:[address] [facility] PATIENT NAME: ANDRE BLANCA [facility] Dr. Andrea MEDICAL REC #: [id number] [place] [address] ADMIT DATE: 07/27/20 SERVICE DATE: 08/19/20 Occupational Therapy Progress Note ATTENDING PHY: Marta Horvath DO Normal [facility] PBNPon 08-19-2020 Natriuretic peptide B (Bld) [Mass/Vol] 134 pg/mL Normal 0-900 [facility] ([place] Comment on above: Result Comment: NT-p roBNP results of less than 300 pg/mL effectively rules out acute congestive heart failure with 99% negative predictive value. Performed By: #### P BNP #### [facility] [address] [place] [id number] PHOSon 08-19-2020 Phosphate [Mass/Vol] 4.40 mg/dL Normal 2.5-4.9 [facility] Comment on above: Order Comment: Maciel s: M Result Comment: Elev ated m-protein (paraprotein) levels in the serum may be exhibited in patients with monoclonal gammopathies, causing falsely elevated inorganic phosphorus results. Performed By: #### L [id number], L500.16324, L500.18281, L500.47538 ####[facility] [id number] [place], [place] [address]Sn# [phone] PROG [facility] 08-19-2020 PROG [facility] Patient Name: ANDRE BLANCA [facility] Date of : [address], [place] [address] Unit Number: [id number] Progress Note-Hospitalist Patient Status: ADM IN Attending Doctor: Marta Horvath DO Service Date: 08/19/20 1354 Chief Complaint Chief Complaint Syncope Subjective S: (2 ROS minimum) Patient seen and examined at bedside. No acute events overnight. She was transferred from the ICU yesterday. She is currently on 3 L nasal cannula. She has some difficulty with speaking but was able to answer more direct questions correctly. Objective (ROS) Nursing Vitals Vital Signs (Last) Result Date Time Pulse Ox 94 08/19 1115 B/P 116/64 08/19 1115 O2 Delivery NASAL CANNULA 08/19 1114 O2 Flow Rate 4 08/19 1114 Temp 98.0 08/19 111 Pulse 78 08/19 1115 Resp 24 08/19 1115 B/P Mean 79 08/18 0607 Physical Exam Physical Examination Notes General: Patient is alert and oriented x3 and is in no acute respiratory distress HEENT: Normal cephalic, atraumatic, PERRLA, TM's normal, Nose clear, Mouth normal Neck: Negative hepatojugular reflux or jugular venous distention, negative carotid bruit. Lungs: Bilateral rhonchi, worse in upper lung avery. Cardiac: Regular rhythm and rate, S1-S2 within normal limits, no murmurs, gallops were appreciated, no rubs. Abdomen: Soft, nontender, nondistended, no HSM detected, bowel sounds are active. Extremities: No edema, cyanosis, or clubbing. Skin: No rashes or breakdown. Musculoskeletal: Normal MS exam, moves all extremities, DTR's normal Lymphatic: Negative cervical, supra-clavicular, groin lymphadenopathy. Neurologic: Cranial nerves from II-XII intact grossly, no focal deficits. Psychiatry: Normal affect. Diagnostic Data: Lab 24hr (CBC/BMP [facility]) 08/19/20 1158: Whole Bld Glucose 118 08/19/20 0755: Whole Bld Glucose 155 H 08/19/20 0516: Ktp-[id number] Pept Pending 08/19/20 0516: [Embedded Image Not Available] Anion Gap LESS THAN 3 L, Est GFR ( Amer) Greater than 60, Est GFR (Non-Af Amer) Greater than 60, BUN/Creatinine Ratio 12 L, Glucose 148 H, Total Calcium 8.5, Phosphorus 4.40, Magnesium 1.9, RBC 2.74 L, MCV 98.2, MCHC 29.7 L, RDW 15.9 H, MPV 10.2, Immature Gran % (Auto) 0.8, Abs Immat Gran (auto) 0.10, Seg Neutrophils % 62.7, Lymphocytes % 23.1, Monocytes % 7.8, Eosinophils % 4.4, Basophils % 1.2, Neutrophils # 4.10, Lymphocytes # 1.50, Monocytes # 0.50, Eosinophils # 0.30, Basophils # 0.10, Nucleated RBCs 0.0 08/19/20 0100: Whole Bld Glucose 115 08/19/20 0035: Specimen Type ARTERIAL, Sample Site L RADIAL, Patient Temperature 37.0, pH 7.40, pCO2 61.9 *H, pO2 78 L, HCO3 37.1 H, Base Excess 10.6 H, ABG O2 Sat (Measured) 93.8, ABG Oximetry 95 , ABG O2 Content 12.0 L, ABG Hemoglobin 9.0 L, ABG Reduced Hgb 5.6 H, ABG Carboxyhemoglobin 0.3, ABG Methemoglobin 0.3 L, ABG O2 Capacity 12.4, Doug Test POSITIVE, Patient Equipment NASAL CANNULA, Liter Flow 5.00 08/18/20 2150: Whole Bld Glucose 149 H 08/18/20 1738: Whole Bld Glucose 93 08/18/20 1700: Whole Bld Glucose 98 Assessment and Plan Conclusion 1. Acute respiratory failure with hypoxia and hypercapnia Secondary to aspiration pneumonia with a component of COPD and RAULITO. This has improved. She will continue using BiPAP 14/8 at nighttime and with naps. She will need a sleep study done outpatient. Patient is currently on 3 L nasal cannula. Wean as tolerated. Patient likely will need oxygen at discharge 2. Bipolar 1 disorder, mixed, moderate Continue Tegretol 200 mg 3 times daily, Prozac 20 mg daily, Seroquel 100 mg at night, Risperdal 3 mg twice daily, and IV Haldol as needed. Psychiatry is consulted. 3. TASHI (acute kidney injury) Resolved. Creatinine is back at baseline. 4. Syncope 5. Obesity BMI 41.9 6. COPD exacerbation Continue breathing treatments in the hospital. Will need to be discharged with LABA/ICS. She will need PFTs performed outpatient. Follow-up with pulmonology in 4 to 6 weeks. 7. Acute delirium Continue reorienting patient. Minimize usage of Haldol. 8. Hypothyroidism Continue levothyroxine. 9. HLD (hyperlipidemia) Continue statin. 10. History of ischemic stroke Continue statin. Patient should be on aspirin for secondary stroke prevention. We will review medications. 11. RAULITO (obstructive sleep apnea) Continue BiPAP 14/8 at nighttime 12. Aspiration pneumonia Patient has finished 7-day treatment of aspiration pneumonia. Statement of Attestation Continue wean oxygen as tolerated. DC telesitter when able. She is not in restraints at this time. Disposition according to case management is [facility]. I confirm that I have evaluated the patient, reviewed the history and physical, medications, diagnostic results, physical exam, assessment and plan of care of the patient. Disclaimer This dictation was created using voice recognition software. Phonetic and/or minor grammatical errors may exist. eSign Date and Time Estevan Bauer DO Verified/Reviewed by 08/19/20 1409 [facility] Progress Note-Hospitalist [facility] PROG [facility] Patient Name: ANDRE BLANCA [employer] Date of : [address] [address] Unit Number: [id number] Progress Note-Hospitalist Patient Status: ADM IN Attending Doctor: Marta Horvath DO Service Date: 08/19/20 0834 Chief Complaint Chief Complaint Syncope Assessment and Plan Conclusion 1. Bipolar 1 disorder, mixed, moderate 2. Acute respiratory failure with hypoxia 3. TASHI (acute kidney injury) 4. Syncope 5. Obesity 6. COPD exacerbation 7. Acute delirium 8. Hypothyroidism 9. HLD (hyperlipidemia) 10. History of ischemic stroke Disclaimer This dictation was created using voice recognition software. Phonetic and/or minor grammatical errors may exist. eSign Date and Time Estevan Bauer DO [facility] Progress Note-Hospitalist [facility] PROG.PSYCHon 08-19-2020 PROG.PSYCH [facility] Patient Name: ANDRE BLANCA [employer] Date of : [address] [address] Unit Number: [id number] Progress Note-Psych Patient Status: DIS IN Attending Doctor: Marta Horvath DO Service Date: 08/19/20 0813 Progress Note - PSYCH Subjective: (2 ROS minimum) He says she slept well. She denies any problems. Objective: General appearance is alert. She is oriented to person, the month, and being at a [facility]. Speech is spontaneous and somewhat garbled. Thinking is confused. Concentration is fair. Mood is anxious. She has needed some as needed Haldol. Sometimes she has not been arousable. At other times she has been alert and very talkative. Current Medications: Medications Current Sig/Antonella Start time Last Medication Dose Route Stop Time Status Admin Acetaminophen 500 MG Q6HPRN PRN 08/04 1930 AC 08/13 (TYLENOL ORAL LIQ) TUBE 1247 Albuterol Sulfate 2.5 MG Q6HPRN PRN 07/28 0030 AC (VENTOLIN/PROVENTIL INH 2.5MG/3ML INH.NEB) Albuterol/Ipratropium 3 ML QIDRT 08/18 1230 AC 08/18 (DUONEB 0.5-3 MG/3 INH 1931 ML INH.NEB) Albuterol/Ipratropium 3 ML Q2HPRN PRN 07/28 0100 AC (DUONEB 0.5-3 MG/3 INH ML INH.NEB) Budesonide 0.5 MG BID 08/04 2100 AC 08/18 (PULMOCORT 0.5MG/2ML INH 1931 INH.NEB) Buspirone HCl 10 MG TIDWM 08/12 1200 AC 08/18 (BUSPAR TAB) TUBE 1811 Carbamazepine 200 MG TIDWM 08/17 1330 AC 08/18 (TEGRETOL TAB.CHEW) PO 1812 Clopidogrel Bisulfate 75 MG QDAY 08/18 0900 AC 08/18 (PLAVIX TAB) PO 0939 Enoxaparin Sodium 40 MG QDAY 07/28 0900 AC 08/18 (LOVENOX D.SYR) SC 0939 Esomeprazole 20 MG BIDAC 08/17 1908 AC 08/19 Magnesium PO 0638 (NEXIUM CAP (TXI)) Fluoxetine HCl 20 MG QDAY 08/18 09 AC 08/18 (PROZAC CAP) PO 0939 Guaifenesin 10 ML TID 08/11 1400 AC 08/18 (ROBITUSSIN 200MG/10 TUBE 2154 ML ORAL LIQ) Haloperidol Lactate 2 MG Q4HPRN PRN 08/07 09 AC 08/18 (HALDOL AMP) IV 0615 Heparin Sodium See Dose Q24H 08/06 0900 AC 08/17 (Porcine) Insts (1) IV 0534 (HEP-LOCK *10*UNITS/ ML IV D.SYR.PF) Heparin Sodium See Dose PRN PRN 08/05 1500 AC 08/17 (Porcine) Insts (2) IV 0048 (HEP-LOCK *10*UNITS/ ML IV D.SYR.PF) Insulin Human Lispro See Dose WMHS 08/19 0800 AC (humaLOG/novoLOG PEN) Insts (3) SC Levothyroxine Sodium 0.125 MG QDAYAC 08/09 0700 AC 08/19 (SYNTHROID TAB) PO 0640 Loperamide HCl 2 MG PRN PRN 08/04 1930 AC 08/17 (IMODIUM AD ORAL TUBE 0851 LIQUID UDC) Menthol/Methyl 1 APPL BIDPRN PRN 07/28 0030 AC 08/15 Salicylate TP 2049 (MIHIR ALVAREZ T.CREAM) Ondansetron HCl 4 MG BIDPRN PRN 08/17 1600 AC (ZOFRAN TAB) PO Ondansetron HCl 4 MG Q6HPRN PRN 07/27 2100 AC 08/04 (ZOFRAN VIAL) IV 2127 Pravastatin Sodium 40 MG QHS 08/17 2200 AC 08/18 (PRAVACHOL TAB) PO 2154 Pregabalin 150 MG BID 08/17 2100 AC 08/18 (LYRICA CAP) PO 2153 Quetiapine Fumarate 100 MG QHS 08/08 2200 AC 08/18 (SEROQUEL TAB) TUBE 2154 Risperidone 3 MG BID 08/17 2100 AC 08/18 (RISPERDAL TAB) PO 2155 Sodium Chloride 1,000 ML CONT 08/19 0030 AC 08/19 (Sodium Chloride IV 0137 0.9%) Sodium Chloride See Dose Q24H 08/06 0900 AC 08/18 (Sodium Chloride Insts (4) IV 0940 0.9% FLUSH D.SYR) Sodium Chloride See Dose PRN PRN 08/05 1500 AC 08/16 (Sodium Chloride Insts (5) IV 1239 0.9% FLUSH D.SYR) Dose Instructions: (1)Heparin Sodium (Porcine) (HEP-LOCK *10*UNITS/ML IV D.SYR.PF): 50-200 UNITS (2)Heparin Sodium (Porcine) (HEP-LOCK *10*UNITS/ML IV D.SYR.PF): 50-200 UNITS (3)Insulin Human Lispro (humaLOG/novoLOG PEN): 1-8 Units (4)Sodium Chloride (Sodium Chloride 0.9% FLUSH D.SYR): 10-40 ML (5)Sodium Chloride (Sodium Chloride 0.9% FLUSH D.SYR): 10-40 ML Assessment/Plan Conclusion 1. Bipolar 1 disorder, mixed, moderate She has been anxious and sometimes very talkative. She should continue BuSpar 10 mg 3 times daily, Tegretol 200 mg 3 times daily, Prozac 20 mg a day, Seroquel 100 mg at night, Risperdal 3 mg twice daily, and Haldol 2 mg IV as needed. She has needed some of the as needed Haldol. Melatonin has been discontinued. She will need further reorientation and support. Ongoing Stable Problems Problems not specifically addressed in the above plan are stable and do not warrant adjustment of the current method of therapy. Disclaimer This dictation was created using voice recognition software. Phonetic and/or minor grammatical errors may exist. eSign Date and Time Milind Gates MD Verified/Reviewed by 08/24/20 0743 [facility] Progress Note-Psych [facility] Name[facility] ANDRE BLANCA [address] [employer] Date of : [address], [place] [address] Unit Number: [id number] Progress Note-Pulmonology Patient Status: ADM IN Attending Doctor: Marta Horvath DO Service Date: 08/19/20 1144 Progress Note-Pulmonology Subjective Subjective: Sitting up in chair, no distress. Denies shortness of breath or any respiratory complaints. Converses appropriately, but answers incorrectly when asked orientation questions. SpO2 is 93% on 4L NC Objective Vital Signs: Vital Signs (Last) Result Date Time Pulse Ox 94 08/19 1115 B/P 116/64 08/19 1115 O2 Delivery NASAL CANNULA 08/19 111 O2 Flow Rate 4 08/19 111 Temp 98.0 08/19 1115 Pulse 78 08/19 1115 Resp 24 08/19 1115 B/P Mean 79 08/18 0607 IandO 24 Hour Summary 08/19 0000 Intake Total 300 Output Total 703 Balance -403 Intake, Oral 300 Number 3 Unmeasured Voids Output, Stool 3 Output, Urine 700 Patient 230 lb Weight Exam: Gen: Awake, alert, oriented to person and place, following commands appropriately HEENT: NC, AT, EOMI, MMM Neck: Supple, no rigidity, Trachea is midline, no LAD Lungs: Coarse Rhonchi bilaterally Heart: RRR, S1/S2, no m/r/g Abd: Soft, NT/ND, +BS X 4 Ext: Trace BLE edema, PPP Skin: Warm, dry Neuro: No focal motor/sensory deficits Medications: Medications Current Sig/Antonella Start time Last Medication Dose Route Stop Time Status Admin Acetaminophen 500 MG Q6HPRN PRN 08/04 1930 AC 08/13 (TYLENOL ORAL LIQ) TUBE 1247 Albuterol Sulfate 2.5 MG Q6HPRN PRN 07/28 0030 AC (VENTOLIN/PROVENTIL INH 2.5MG/3ML INH.NEB) Albuterol/Ipratropium 3 ML QIDRT 08/18 1230 AC 08/19 (DUONEB 0.5-3 MG/3 INH 0830 ML INH.NEB) Albuterol/Ipratropium 3 ML Q2HPRN PRN 07/28 0100 AC (DUONEB 0.5-3 MG/3 INH ML INH.NEB) Budesonide 0.5 MG BID 08/04 2100 AC 08/19 (PULMOCORT 0.5MG/2ML INH 0830 INH.NEB) Buspirone HCl 10 MG TIDWM 08/12 1200 AC 08/19 (BUSPAR TAB) TUBE 0933 Carbamazepine 200 MG TIDWM 08/17 1330 AC 08/19 (TEGRETOL TAB.CHEW) PO 0934 Clopidogrel Bisulfate 75 MG QDAY 08/18 09 AC 08/19 (PLAVIX TAB) PO 0934 Enoxaparin Sodium 40 MG QDAY 07/28 09 AC 08/19 (LOVENOX D.SYR) SC 0934 Esomeprazole 20 MG BIDAC 08/17 1908 AC 08/19 Magnesium PO 0638 (NEXIUM CAP (TXI)) Fluoxetine HCl 20 MG QDAY 08/18 09 AC 08/19 (PROZAC CAP) PO 0934 Guaifenesin 10 ML TID 08/11 1400 AC 08/19 (ROBITUSSIN 200MG/10 TUBE 0935 ML ORAL LIQ) Haloperidol Lactate 2 MG Q4HPRN PRN 08/07 0900 AC 08/18 (HALDOL AMP) IV 0615 Heparin Sodium See Dose Q24H 08/06 0900 AC 08/19 (Porcine) Insts (1) IV 0937 (HEP-LOCK *10*UNITS/ ML IV D.SYR.PF) Heparin Sodium See Dose PRN PRN 08/05 1500 AC 08/17 (Porcine) Insts (2) IV 0048 (HEP-LOCK *10*UNITS/ ML IV D.SYR.PF) Insulin Human Lispro See Dose WMHS 08/19 0800 AC 08/19 (humaLOG/novoLOG PEN) Insts (3) SC 0933 Levothyroxine Sodium 0.125 MG QDAYAC 08/09 0700 AC 08/19 (SYNTHROID TAB) PO 0640 Loperamide HCl 2 MG PRN PRN 08/04 1930 AC 08/17 (IMODIUM AD ORAL TUBE 0851 LIQUID UDC) Menthol/Methyl 1 APPL BIDPRN PRN 07/28 0030 AC 08/15 Salicylate TP 204 (MIHIR ALVAREZ T.CREAM) Ondansetron HCl 4 MG BIDPRN PRN 08/17 1600 AC (ZOFRAN TAB) PO Ondansetron HCl 4 MG Q6HPRN PRN 07/27 2100 AC 08/04 (ZOFRAN VIAL) IV 212 Pravastatin Sodium 40 MG QHS 08/17 220 AC 08/18 (PRAVACHOL TAB) PO 215 Pregabalin 150 MG BID 08/17 2100 AC 08/18 (LYRICA CAP) PO 215 Quetiapine Fumarate 100 MG QHS 08/08 2200 AC 08/18 (SEROQUEL TAB) TUBE 2154 Risperidone 3 MG BID 08/17 2100 AC 08/19 (RISPERDAL TAB) PO 0935 Sodium Chloride 1,000 ML CONT 08/19 0030 AC 08/19 (Sodium Chloride IV 0137 0.9%) Sodium Chloride See Dose Q24H 08/06 0900 AC 08/19 (Sodium Chloride Insts (4) IV 0936 0.9% FLUSH D.SYR) Sodium Chloride See Dose PRN PRN 08/05 1500 AC 08/16 (Sodium Chloride Insts (5) IV 1239 0.9% FLUSH D.SYR) Dose Instructions: (1)Heparin Sodium (Porcine) (HEP-LOCK *10*UNITS/ML IV D.SYR.PF): 50-200 UNITS (2)Heparin Sodium (Porcine) (HEP-LOCK *10*UNITS/ML IV D.SYR.PF): 50-200 UNITS (3)Insulin Human Lispro (humaLOG/novoLOG PEN): 1-8 Units (4)Sodium Chloride (Sodium Chloride 0.9% FLUSH D.SYR): 10-40 ML (5)Sodium Chloride (Sodium Chloride 0.9% FLUSH D.SYR): 10-40 ML ABG: ABG-Last Test Result Date Time Blood Gas Specimen Type ARTERIAL 08/19 34 Sample Site L RADIAL 08/19 34 Patient Temperature (C) 37.0 08/19 34 pH (7.35 - 7.45) 7.40 08/19 34 pCO2 (35 - 45 MMHG) 61.9 *H 08/19 34 pO2 (80 - 100 MMHG) 78 L 08/19 34 HCO3 (22 - 26 MMOL/L) 37.1 H 08/19 34 Base Excess (-2.0 - 2.0 MML/L) 10.6 H 08/19 34 ABG O2 Sat (Measured) (90 - 100 %) 93.8 08/19 34 ABG Oximetry (%) 95 08/19 34 ABG O2 Content (15.7 - 21.6 mL/dL) 12.0 L 08/19 34 ABG Hemoglobin (10 - 16 GM/DL) 9.0 L 08/19 34 ABG Reduced Hgb (0 - 5 %) 5.6 H 08/19 34 ABG Carboxyhemoglobin (0 - 10 %) 0.3 08/19 34 ABG Methemoglobin (0.4 - 1.5 %) 0.3 L 08/19 34 ABG O2 Capacity (mL/dL) 12.4 08/19 34 Doug Test POSITIVE 08/19 34 Sodium (136 - 148 mmol/L) 147 08/11 05 Potassium (3.5 - 5.0 MMOL/L) 3.2 L 08/11 05 Glucose (60 - 80 MG/DL) 174 H 08/11 538 Lactate Cancelled 08/16 0500 Patient Equipment NASAL CANNULA 08/19 003 Liter Flow (L/M) 5.00 08/19 0035 FiO2 % (%) 52 08/11 538 Lab Results: Lab 24hr (CBC/BMP [facility]) 08/19/20 0755: Whole Bld Glucose 155 H 08/19/20 0516: Cel-N-Rwgyjyanmqh Pept Pending 08/19/20 0516: [Embedded Image Not Available] Anion Gap LESS THAN 3 L, Est GFR ( Amer) Greater than 60, Est GFR (Non-Af Amer) Greater than 60, BUN/Creatinine Ratio 12 L, Glucose 148 H, Total Calcium 8.5, Phosphorus 4.40, Magnesium 1.9, RBC 2.74 L, MCV 98.2, MCHC 29.7 L, RDW 15.9 H, MPV 10.2, Immature Gran % (Auto) 0.8, Abs Immat Gran (auto) 0.10, Seg Neutrophils % 62.7, Lymphocytes % 23.1, Monocytes % 7.8, Eosinophils % 4.4, Basophils % 1.2, Neutrophils # 4.10, Lymphocytes # 1.50, Monocytes # 0.50, Eosinophils # 0.30, Basophils # 0.10, Nucleated RBCs 0.0 08/19/20 0100: Whole Bld Glucose 115 08/19/20 0035: Specimen Type ARTERIAL, Sample Site L RADIAL, Patient Temperature 37.0, pH 7.40, pCO2 61.9 *H, pO2 78 L, HCO3 37.1 H, Base Excess 10.6 H, ABG O2 Sat (Measured) 93.8, ABG Oximetry 95 , ABG O2 Content 12.0 L, ABG Hemoglobin 9.0 L, ABG Reduced Hgb 5.6 H, ABG Carboxyhemoglobin 0.3, ABG Methemoglobin 0.3 L, ABG O2 Capacity 12.4, Doug Test POSITIVE, Patient Equipment NASAL CANNULA, Liter Flow 5.00 08/18/20 2150: Whole Bld Glucose 149 H 08/18/20 1738: Whole Bld Glucose 93 08/18/20 1700: Whole Bld Glucose 98 Assessment/Plan Assessment/Problem List: 1. Acute hypoxemic respiratory failure 70 y/o with PMHx of COPD, HFpEF, Ischemic Stroke who initially was admitted with Syncope to Med Surg on 07/27, followed by a transfer to ICU on 08/04 for worsening hypoxemia and transfer to [facility] on 08/18. ASSESSMENT: - Acute Hypoxemic and Hypercarbic Respiratory Failure - LLL Aspiration Pneumonia - Decompensated HFpEF (Stage I in 07/2020) - Dysphagia - Hx of COPD w/t Centrilobular Emphysema (No PFTs on file) - Tobacco Abuse in Remission - Morbid Obesity PLAN: - Currently oxygenating adequately on 3 L of NC ; Continue to wean with Goal SpO2 > 90% ; will likely need Home O2 evaluation upon discharge. - Continue BiPAP / qHS, with naps and PRN during the day ; Recommend PSG as outpatient - Finished 7 days of Unasyn on 08/11 ; Urine Ag/SARS-CoV-2 all negative ; NGTD on sputum cultures - Autodiuresing well with I/O of -800 ml from yesterday - Continue Duonebs and Budesonide while in the hospital; Resume Home Symbicort upon discharge ; Strongly recommend complete PFT's as outpatient - Will need aggressive PT/OT and Speech therapy to help improve her functional decline. - Recommend follow up with myself or Yamileth Corbin CNP in 4-6 weeks as outpatient. - Code Status: DNR- CCA ( OK for intubation) - Discussed by Dr. Loera with patient's son on 08/11. ATTENDING ATTESTATION: Patient individually seen/examined. Agree with the EDUCATION ADVISER's notes, assessment and plan. My evaluation and treatment plan is reflected by the addendum in the above note. Collaborating Physician: Marge Beckman DO Disclaimer This dictation was created using voice recognition software. Phonetic and/or minor grammatical errors may exist. eSign Date and Time Marge Beckman DO Verified/Reviewed by 08/19/20 1343 Yamileth Corbin CNP [facility] Progress Note-Pulmonology [facility] 08-19-2020 PT Progress Note [facility] PTPN Physical Therapy Inpatient Treatment Note Medical Diagnosis: 1. Acute hypoxemia respiratory failure 2. Syncope 3. Hypothyroidism multiple rib fx Demographics: Age: 70Y Gender: Female Primary Language: Estonian Preferred Language: Estonian [facility] Precautions/Restrictio ns: 4L via NC, puree / nectar diet SUBJECTIVE Patient Report: Speech garbled, non sensual. Patient/Caregiver Goals: None stated Pain: Patient unable to communicate level of pain. Clinical indicators of pain include: Grimacing. Interventions: Repositioned patient. OBJECTIVE General Observation: Pt seated in recliner upon arrival. Agreeable to session. Telesitter on. Pt able to state pain all over. Denies SOB. Speech garbled, unable to understand at times. Non sensical speaking during session, talking to herself as well. Functional Activities After Today's Session: Transfers: TX:sit<->stand w/ MOD A form low bedside recliner to ww. Static standing x 3 trilas w/ LE's shaky and buckling w/ prolonged stand and weight shifting. Locomotion/Ambulation: Not assessed/applicable Thex:seated (B) LE x 15 reps. ea. including AP, LAQ, Marching, hip add using pillow w/ pt able to count reps out loud w/ therapist. Rest breaks as needed. AM-PAC Basic Mobility: Turning Over in Bed: A little difficulty Sitting/Standing Chair with Arms: A lot of difficulty Lying on Back to Sitting on Side of Bed: A little difficulty Moving To/From Bed to Chair: A little help needed Walking in Hospital Room: A lot of help needed Climbing 3-5 Steps with Railing: A lot of help needed Raw Score = 15 , AM-PAC t-Scale Score = 39.45 and G-Code Modifier = CK [facility] PATIENT NAME: ANDRE BLANCA [facility] Dr. Andrea MEDICAL REC #: [id number] [place] [address] ADMIT DATE: 07/27/20 SERVICE DATE: 08/19/20 Physical Therapy Progress Note ATTENDING DAMIAN: Marta Horvath DO Vital Signs: SPO2 w/ O2 on at 4L 94-96% Interventions: Therapeutic Activities: functional transfer training,, standing balance w/ (B) UE support, LE thex and monitoring of SpO2. Pain Reassessment: No significant change in pain during session. Education: Education Provided: Plan of care. Functional transfers. Safety. Home exercise/activity plan. Audience: Patient. Mode: Explanation. Demonstration. Response: Verbalized understanding. Needs practice. ASSESSMENT Response to Visit: Tolerated fairly w/o SOB w/ exertion. Pt w/ decreased strength, balance, mobility and endurance all making pt a fall risk needing hands on assist when up. Pt will reuire continued inpt skilled therapies to improve overall function and safety. Activity/Participation Problem List and Goals: No updates at this time. Progress Toward Goals: TREATMENT GOAL REVIEW: 1. Pt transfer MOD I - Not Met: ongoing 2. Pt ambulate at least 50 feet WW MOD I - Not Met ongoing 3. Demo independence with LE thex for endurance and strengthening - Not Met ongoing Time frame to achieve treatment goal(s): 2 weeks PLAN Treatment Frequency, Duration and Interventions: Continue Physical Therapy to achieve goals per previously established Plan of Care. gait, transfes, endurance, balance, safety Recommended Physical Therapy Follow Up: Upon acute care discharge, the following is currently recommended: Inpatient Physical Therapy, LESS THAN 60 minutes per day. Recommended Equipment: None issued this visit. Recommended Consults: None currently. Development of Plan of Care: There was no change to plan of care today. If there are any questions regarding this service, please contact the Acute Therapy Department at extension [phone] Location of Patient at End of Therapy Session: In chair, chair alarm in place, call light within reach Tele sitter on [facility] PATIENT [facility] REC #: [id number] [place] [address] ADMIT DATE: 07/27/20 SERVICE DATE: 08/19/20 Physical Therapy Progress Note ATTENDING PHY: Kian,Marta M DO Services: Total Billed: 24 minutes (Timed: 24, Untimed: 0) 24.00 Timed: [47764] THER ACTIVITIES / 15 MIN 0.00 Untimed: [] PT Treatment- General ORDER Signed by: RENALDO BENAVIDES, TENTER 08/19/2020 15:25:26 - CoSigned By: Kiki Cheung, PT 08/19/2020 3:39:[address] [facility] PATIENT NAME: ANDRE BLANCA [facility] Dr. Andrea MEDICAL REC #: [id number] [place] [address] ADMIT DATE: 07/27/20 SERVICE DATE: 08/19/20 Physical Therapy Progress Note ATTENDING PHY: Marta Horvath DO Normal [facility] BMPon 08-18-2020 Anion gap [Moles/Vol] 3 mmol/L Low 5-16 [facility] Comment on above: Order Comment: Campu s: M Performed By: #### L 500.17233, L500.37582, L500.58227, L500.30834 ####[facility] [id number] [place], [place] [address]Go# [phone] Calcium [Mass/Vol] 8.7 mg/dL Normal 8.5-10.5 [facility] Comment on above: Order Comment: Campu s: M Result Comment: NOTE NEW NORMAL RANGE DUE TO REAGENT CHANGE Performed By: #### L 500.54236, L500.57011, L500.83407, L500.31784 ####[facility] [id number] [place], [place] [address]Vu# [phone] Chloride [Moles/Vol] 98 mmol/L Normal 98-107 [facility] Comment on above: Order Comment: Campu s: M Performed By: #### L 500.09843, L500.12881, L500.32433, L500.99319 ####[facility] [id number] [place], [place] [address]Ev# [phone] CO2 [Moles/Vol] 40.0 mmol/L High 21-32 [facility] Comment on above: Order Comment: Abundiou s: M Performed By: #### L 500.24697, L500.74479, L500.04880, L500.71195 ####[facility] [id number] [place], [place] [address]Hc# [phone] Creatinine [Mass/Vol] 0.58 mg/dL Normal 0.510-0.950 [facility] Comment on above: Order Comment: Abundiou s: M Result Comment: Geraldine ents receiving either N-Acetylcysteine (NAC) or Metamizole prior to venipuncture, may have falsely depressed results. Performed By: #### L 500.57006, L500.12213, L500.57551, L500.87119 ####[facility] [id number] [place], [place] [address]Mm# [phone] Glucose [Mass/Vol] 146 mg/dL High 70-100 [facility] Comment on above: Order Comment: Abundiou s: M Result Comment: 70-1 00- Normal Fasting; 100-125 Impaired Fasting; greater than 126 on more than one result- Diabetes. ADA guidelines. Results may be falsely elevated after the administration of Sulfapyridine. Results may be falsely depressed after the administration of Sulfasalazine. Performed By: #### L 500.46425, L500.18141, L500.05151, L500.74691 ####[facility] [id number] [place], [place] [address]Ia# [phone] Potassium [Moles/Vol] 3.9 mmol/L Normal 3.5-5.1 [facility] Comment on above: Order Comment: Abundiou s: M Performed By: #### L 500.76831, L500.14094, L500.29770, L500.97021 ####[facility] [id number] [place], [place] [address]We# [phone] Sodium [Moles/Vol] 139 mmol/L Normal 136-145 [facility] Comment on above: Order Comment: Campu s: M Performed By: #### L 500.26961, L500.91395, L500.72897, L500.13235 ####[facility] [id number] [place] [address]Yj# [phone] Urea nitrogen [Mass/Vol] 9 mg/dL Normal 7-26 [facility] Comment on above: Order Comment: Campu s: M Performed By: #### L 500.42689, L500.18373, L500.13611, L500.24932 ####[facility] [id number] [place], [place] [address]Yw# [phone] Urea nitrogen/Creatinine [Mass ratio] 15 mg/mg Normal 15-24 [facility] Comment on above: Order Comment: Campu s: M Performed By: #### L 500.27775, L500.05792, L500.04601, L500.50454 ####[facility] [id number] [place] [address]Wo# [phone] CBC W/DIFFon 08-18-2020 BASO ABS 0.10 K/CU MM Normal 0-0.2 [facility] Comment on above: Order Comment: Campu s: M Performed By: #### L 200.89971 ####[facility] [id number] [place] [address]Pk# [phone] Basophils/100 WBC (Bld) 0.8 % Normal 0-2 M [facility] Comment on above: Order Comment: Campu s: M Performed By: #### L 200.28219 ####[facility] [id number] [place] [address]Lc# [phone] EOS ABS 0.30 K/CU MM Normal 0-0.5 [facility] Comment on above: Order Comment: Campu s: M Performed By: #### L 200.61607 ####[facility] [id number] [place] [address]Cn# [phone] Eosinophils/100 WBC (Bld) 3.7 % Normal 0-5 [facility] Comment on above: Order Comment: Campu s: M Performed By: #### L 200.38363 ####[place] [address]Ph# [phone] Erythrocyte distribution width (RBC) [Ratio] 15.7 % High 11-14.5 [facility] Comment on above: Order Comment: Campu s: M Performed By: #### L 200.81771 ####[place] [address]Ph# [phone] Hematocrit (Bld) [Volume fraction] 25.6 % Low 35.0-47.0 [facility] Comment on above: Order Comment: Campu s: M Performed By: #### L 200.89124 ####[place] [address]Ph# [phone] Hemoglobin (Bld) [Mass/Vol] 7.8 g/dL Low 11.5-15.5 [facility] Comment on above: Order Comment: Campu s: M Performed By: #### L 200.57790 ####[facility] [id number] [place], [place] [address]Ph# [phone] IMMATR GRAN ABS 0.10 K/CU MM Normal Less than 2 [facility] Comment on above: Order Comment: Campu s: M Performed By: #### L 200.23474 ####[facility] [id number] [place], [place] [address]Ph# [phone] IMMATURE GRAN % 1.0 % Normal Less than 2 [facility] Comment on above: Order Comment: Campu s: M Performed By: #### L 200.88326 ####[facility] [id number] [place], [place] [address]Ph# [phone] Lymphocytes (Bld) [#/Vol] 1.30 K/CU MM Normal 0.9-4.4 [facility] Comment on above: Order Comment: Campu s: M Performed By: #### L 200.19728 ####[facility] [id number] [place], [place] [address]Ee# [phone] Lymphocytes/100 WBC (Bld) 16.8 % Low 20-40 [facility] Comment on above: Order Comment: Campu s: M Performed By: #### L 200.03449 ####[facility] [id number] [place] [address]Dw# [phone] MCHC (RBC) [Mass/Vol] 30.5 g/dL Low 32.0-36.0 [facility] Comment on above: Order Comment: Campu s: M Performed By: #### L 200.59990 ####[facility] [id number] [place] [address]Fi# [phone] MCV (RBC) [Entitic vol] 95.9 fL Normal 80.0-99.0 M [facility] Comment on above: Order Comment: Campu s: M Performed By: #### L 200.14114 ####[facility] [id number] [place], [place] [address]Dw# [phone] MONO ABS 0.60 K/CU MM Normal 0.1-1.1 [facility] Comment on above: Order Comment: Campu s: M Performed By: #### L 200.61531 ####[facility] [id number] [place], [place] [address]Np# [phone] Monocytes/100 WBC (Bld) 7.5 % Normal 2-10 M [facility] Comment on above: Order Comment: Campu s: M Performed By: #### L 200.97226 ####[facility] [id number] [place], [place] [address]Hr# [phone] NEUTROPHIL ABS 5.50 K/CU MM Normal 2.0-8.3 [facility] Comment on above: Order Comment: Campu s: M Performed By: #### L 200.23673 ####[facility] [id number] [place], [place] [address]Jq# [phone] Neutrophils/100 WBC (Bld) 70.2 % Normal 45-75 [facility] Comment on above: Order Comment: Campu s: M Performed By: #### L 200.76513 ####[facility] [id number] [place] [address]Jf# [phone] Nucleated RBC/100 WBC (Bld) [Ratio] 0.0 % Normal Less than 1 [facility] Comment on above: Order Comment: Campu s: M Performed By: #### L 200.03237 ####[facility] [id number] [place], [place] [address]Xh# [phone] Platelet mean volume (Bld) [Entitic vol] 10.5 fL Normal 9.4-12.4 [facility] Comment on above: Order Comment: Campu s: M Performed By: #### L 200.73280 ####[facility] [id number] [place] [address]Eh# [phone] Platelets (Bld) [#/Vol] 394 K/CU MM Normal 150-450 [facility] Comment on above: Order Comment: Campu s: M Performed By: #### L 200.41950 ####[facility] [id number] [place], [place] [address]Ph# [phone] RBC (Bld) [#/Vol] 2.67 M/CU MM Low 3.90-5.30 [facility] Comment on above: Order Comment: Campu s: M Performed By: #### L 200.35535 ####[facility] [id number] [place] [address]Hk# [phone] WBC (Bld) [#/Vol] 7.9 K/CUMM Normal 4.5-11.0 [facility] Comment on above: Order Comment: Campu s: M Performed By: #### L 200.59833 ####[facility] [id number] [place], [place] [address]Ew# [phone] DIET.[facility] 08-18-2020 DIET.[facility] Patient Name: ANDRE BLANCA [address] [facility] Date of : [address] [place] [address] Unit Number: [id number] Nutrition Assessments Patient Status: ADM IN Attending Doctor: Marta Horvath DO Service Date: 08/18/20 1229 MNT - Assessment Diagnosis/Intervention MNT Assessment due to: Reassessment Malnutrition Recommended Malnutrition Diagnosis: Does not meet criteria for malnutrition Nutrition Diagnosis: Inadequate Oral Intake Related to: food preferences/dislike of modified diet texture e.b. food recall Intervention and Plan Food and Nutrient Delivery: Current Estimated Energy Needs 1802 calories per day, 17 calories/kg current weight determined using [place] x 1.1. Current Estimated Protein Needs 104 gm daily, 1 gm/kg CBW. Current estimated fluid needs 1802 mL per day. Current needs based on Current weight of 229 pounds/104.1 kg for energy needs Intervention: 1. Supplement pureed, nectar thick liquids with Magic Cup BID at lunch and dinner 2. Food preferences sent to diet office. 3. Recommend daily MVIT until PO intake improves. Coordination of Nutrition Care: Discussed in SCU rounds. Monitoring and Evaluation Goal: Pt will meet >85% est energy and protein needs x 7 days. Will monitor TF tolerance, weight, and pertinent labs. Client History Admitted for acute hypoxemic respiratory failure, syncope. PMH: Chronic knee pain, h/o CVA , COPD, hypothyroidism, IBS, migraines, fibromyalgia, hypotension. Pt was transferred to D-ICU on 08/04/20 d/t worsening hypoxemia requiring HFNC. Pt noted to have LLL aspiration pneumonia and TASHI d/t dehydration. Plan is to start TF today. Biochemical Data CO2 40, Glu 146 Medical Tests and Procedures 08/04/20 ST evaluation: Recommended Regular diet, thin liquids. ST unable to re-evaluate pt since this date d/t pt delirious and not following commands. 08/08/20 Chest x-ray: Worsening apperance of the lungs. Abdominal x-ray negative for ileus/obstruction. 08/15/20: ST evaluation - NPO 08/17/20: ST evaluation - pureed, nectar thick liquids meds in puree, small bits/sips, 100% assistance during meals; good rehab potential Meds Likely to Interact w/Nutr carbamazepine, insulin lispro SSI, levothyroxine Diet History 08/08/20: Pt was following a regular diet TENTER and was not using any oral nutrition supplements. Pt had previously denied chewing/swallowing problems per RD note from . Pt was receiving a Regular diet from 07/28-08/04/20. Pt was then changed to NPO except ice chips and meds. On 08/06/20, diet order was changed to NPO. TF was ordered this date. 08/18/20: TF discontinued 08/17/[address] evaluation. She received adequate calories and protein over the past week at >90% of prescribed TF volume. The NG tube was removed. Pt eating minimal. She reports eating a few bites of dinner 08/17/20 and pudding and pears for breakfast 08/18/20. She dislikes coffee and milk,eggs and cream of wheat. Likes grape and orange juice. Would prefer more gravy with food. Current Nutrition Prescription Pureed, nectar thick liquids 1:1 supervision at all meals. Anthropometric Measurements Anthropometric Measurements: Height:5 Feet, 0 Inches, 152.40 cm, Weight: 229 lbs, 104.100 kg BMI: 44.80. Admission Weight: 235.7# Weight this admission ranged: 226.6-235.7# Per [facility] Weight History: 02/2019: 223.6-234.5# BMI Criteria: >/= 40 Morbidly Obese Weight Changes: 1-2% in 1 week (1.7% loss x 1 week ) Minutes of Medical Nutrition Therapy: 30 Minutes Disclaimer This dictation was created using voice recognition software. Phonetic and/or minor grammatical errors may exist. eSign Date and Time Stefanie Lopez RDLD Verified/Reviewed by 08/18/20 1300 Normal [facility] Nutrition Assessments Normal [facility] GFR ESTon 08-18-2020 IF AMER Greater than 60 Normal [facility] Comment on above: Order Comment: Maciel joe: M Minimal Draw: Y Performed By: #### L 500.79410, L500.47477 #### [facility] [address] [place] [id number] IF non-AFR AMER Greater than 60 Normal [facility] Comment on above: Order Comment: Maciel s: M Minimal Draw: Y Performed By: #### L 500.55226, L500.56316 #### [facility] [address] [place] [address] GLUCOSE METERon 08-18-2020 Glucose [Mass/Vol] 93 mg/dL Normal 85-125 [facility] Glucose [Mass/Vol] 98 mg/dL Normal 85-125 [facility] Glucose [Mass/Vol] 131 mg/dL High 85-125 [facility] Glucose [Mass/Vol] 120 mg/dL Normal 85-125 [facility] MAGNESIUMon 08-18-2020 Magnesium [Mass/Vol] 2.0 MG/CL Normal 1.6-2.6 [facility] Comment on above: Order Comment: Maciel joe: M Minimal Draw: Y Performed By: #### L 500.17237, L500.28852 #### [facility] [address] [place], [place] [address] OTPNon 08-18-2020 OT Progress Note Normal [facility] OTPN Occupational Therapy Inpatient Treatment Note Medical Diagnosis: Acute hypoxemic respiratory failure, Syncope, pneumonia, hypothyroidism OCCUPATIONAL PROFILE AND HISTORY Demographics: Age: 70Y Gender: Female Primary Language: Estonian Preferred Language: Estonian Referring Service/Team: Cardiology Rehabilitation Precautions/Restrictio ns: , 2L via NC puree / nectar diet Patient Report: "IM OK" Patient/Caregiver Goals: "I want something to eat". Pain: Patient currently without complaints of pain. OBJECTIVE / OCCUPATIONAL PERFORMANCE General Observation: SEEN AM THIS DATE.. PATIENT IN BED NON SENSICAL BUT WHEN ASKED A DIRECT QUESTION WAS ABLE TO ANSWER. NOTED ACTIVITY INCREASED PATIENT WAS ABLE TO HAVE APPROPRIATE CONVERSATION AT TIMES Activities of Daily Living: Current Status Previous Status ADLs Feeding Minimal assistance Total assistance Grooming Minimal assistance Total assistance Bathing-UE Minimal assistance Total assistance Bathing-LE Maximal assistance Total assistance Dressing-UE Minimal assistance Total assistance Dressing-LE Maximal assistance Total assistance Toileting Maximal assistance Total assistance AM-PAC Daily Activities: Putting On/Taking Off Lower Body Clothing: A lot of help needed Bathing:: A lot of help needed Toileting: A lot of help needed Putting On/Taking Off Upper Body Clothing: A little help needed Grooming: A little help needed Eating a Meal: No help needed Raw Score = 16 , AM-PAC t-Scale Score = 35.96 and G-Code Modifier = CK Functional Mobility: Bed Mobility: All bed mobility including supine to sit, rolling, [facility] PATIENT NAME: ANDRE BLANCA [facility] Dr. Andrea MEDICAL REC #: [id number] [place] [address] ADMIT DATE: 07/27/20 SERVICE DATE: 08/18/20 Occupational Therapy Progress Note ATTENDING DAMIAN: Marta Horvath DO scooting. requiring minimal assistance. LOG ROLLING AND SUPINE TO SIT, SBA UNSUPPORTED SITTING BLANACE EOB Transfers: Patient transferred bed to/from chair requiring minimal assistance of 1 person. Patient used the following equipment: Rolling walker. CUES FOR REACHING BACK, SAFETY W/ TURNS Locomotion/Gait/Ambula tion: Not assessed/applicable Interventions: Self Care/Home Management: BED MOBILITY, TRANSFERS, BATHING, ADAPTIVE DRESSING Therapeutic Activities: UNSUPPORTED SITTING BALANCE, FOLLOWING COMMANDS, MAKING NEEDS KNOWN, ORIENTATION Pain Reassessment: No significant change in pain during session. Education: Education Provided: Precautions. Plan of care. Safety issues and interventions. Altered mental status. Fall protocol. Impulsivity. Repeated re-orientation. Supervision requirements. Use of adaptive devices. Activities of daily living. Bed mobility. Functional transfers. Home exercise/activity plan. Audience: Patient. Mode: Explanation. Demonstration. Response: Needs practice. Needs reinforcement. No evidence of learning. ASSESSMENT Response to Visit: IMPROVED TOLERANCE TO ADLS AND MOBILITY , DECREASED STRENGTH, ENDURANE, CONFUSION LIMITING PATIENT IS AT A HIGH RISK FOR FALLS Activity/Participation Problem List and Goals: No updates at this time. Progress Toward Goals: TREATMENT GOAL REVIEW: 1. MOD I SELF CARE - Not Met: ONGOING 2. MOD I FUNCTIONAL TRANSFERS - Not Met ONGOING 3. MOD I FUNCTIONAL MOBILITY FOR GETTING AROUND THE HOUSE - Not Met ONGOING 4. IMPROVED STRENGTH/PULMONARY ENDURANCE TO DO ADL PROJECTED WHILE MAINTAINING O2 SATS ABOVE 92 - Not Met ONGOING 5. MOD I MIN CHALLENGE STANDING TASKS STANDING FOR UP TO 10 MIN AT A TIME W/ MINIMAL TO NO C/O DIZZINESS - Not Met ONGOING 6. PT/FAMILY WILL BE INSTRUCTED IN D/C RECOMMENDATIONS,HOME SAFETY,ADAPTIVE TECHNIQUES/EQUIPMENT AND DEMO UNDERSTANDING FOR FOLLOW THROUGH - Not Met: ONGOING Time frame to achieve treatment goal(s): 5x a wk until d/c PLAN Treatment Frequency, Duration and Interventions: Occupational Therapy is recommended for 5X A WK UNTIL D/C Occupational Therapy treatment is to include: [facility] PATIENT NAME: ANDRE BLANCA [facility] Dr. Andrea MEDICAL REC #: [id number] [place] [address] ADMIT DATE: 07/27/20 SERVICE DATE: 08/18/20 Occupational Therapy Progress Note ATTENDING PHY: Marta Horvath DO ]ADL TRAINING, TRANSFER TRAINING, STANDING BALANCE/ENDURANCE TRAINING, FUNCTIONAL MOBILITY TRAINING, STRENGTHENING,GRADED THERAPEUTIC EXERCISES/ACTIVITIES,P T/FAMILY EDUCATION Recommended Occupational Therapy Follow Up: Upon acute care discharge, the following is currently recommended: Inpatient Occupational Therapy, LESS THAN 60 minutes per day. Equipment Recommended: TBD Recommended Consults: None currently. Development of Plan of Care: Patient participated in plan of care development today. If there are any questions regarding this service, please contact the Acute Therapy Department at extension [phone] Communication to Nursing: No updates at this time. Location of Patient at End of Therapy Session: In chair, chair alarm in place, call light within reach Services: Total Billed: 39 minutes (Timed: 39, Untimed: 0) 24.00 Timed: [11642] ADL-HOME MANAGEMENT EA 15 MIN 15.00 Timed: [94974] THER ACTIVITIES / 15 MIN 0.00 Untimed: [] OT Treatment General ORDER Signed by: SIMONA LLAMAS/Asuncion 08/18/2020 11:13:06 - CoSigned By: ANNIE MINAYA/Asuncion 08/18/2020 1:22:[address] [facility] PATIENT NAME: ANDRE BLANCA [facility] Dr. Andrea MEDICAL REC #: [id number] [place] [address] ADMIT DATE: 07/27/20 SERVICE DATE: 08/18/20 Occupational Therapy Progress Note ATTENDING PHY: Marta Horvath DO Normal [facility] PHOSon 08-18-2020 Phosphate [Mass/Vol] 4.50 mg/dL Normal 2.5-4.9 [facility] Comment on above: Order Comment: Campu s: M Minimal Draw: Y Result Comment: Elev ated m-protein (paraprotein) levels in the serum may be exhibited in patients with monoclonal gammopathies, causing falsely elevated inorganic phosphorus results. Performed By: #### L 500.87451, L500.60103 #### [facility] [address] [place] [address] PROG [facility] 08-18-2020 PROG [facility] Patient Name: ANDRE BLANCA [facility] Date of : [address] [place] [address] Unit Number: [id number] Progress Note-Hospitalist Patient Status: ADM IN Attending Doctor: Marta Horvath DO Service Date: 08/18/20 190 Chief Complaint Chief Complaint Syncope Subjective S: (2 ROS minimum) Patient sitting up in bed alert and oriented. Answering questions appropriately but does have some what appears to be baseline speech problems. She specifically denies any chest pain, shortness of breath but does have a productive cough of greenish sputum. No hemoptysis. Abdomen gets tender at times especially with her diarrhea. No difficulty urinating. Appetite and p.o. intake are good. Patient continues to have a PICC line in the right upper extremity. Kaiser catheter was removed today, but the patient had frequent incontinent spells that caused her to be agitated so a Kaiser catheter was reinserted. Objective (ROS) Nursing Vitals Vital Signs (Last) Result Date Time Pulse Ox 95 08/18 1600 O2 Delivery NASAL CANNULA 08/18 1600 B/P 113/59 08/18 1527 O2 Flow Rate 4 08/18 1527 Temp 99.3 08/18 1527 Pulse 81 08/18 1527 Resp 16 08/18 1527 B/P Mean 79 08/18 0607 Physical Exam Neurological / Psychiatric Alert, Orientation X3 Respiratory Faint Scattered rhonchi that partially clear when patient coughs Cardiovascular Heart RRR, No M / R / G Gastrointestinal Normal Bowel Sounds, Non Tender Skin Warm / Dry (+1 piting edema bilateral legs) Diagnostic Data: Lab 24hr (CBC/BMP [facility]) 08/18/20 1738: Whole Bld Glucose 93 08/18/20 1700: Whole Bld Glucose 98 08/18/20 0455: Whole Bld Glucose 131 H 08/18/20 0429: [Embedded Image Not Available] Anion Gap LESS THAN 3 L, Est GFR ( Amer) Greater than 60, Est GFR (Non-Af Amer) Greater than 60, BUN/Creatinine Ratio 15, Glucose 146 H, Total Calcium 8.7, Phosphorus 4.50, Magnesium 2.0, RBC 2.67 L, MCV 95.9, MCHC 30.5 L, RDW 15.7 H, MPV 10.5, Immature Gran % (Auto) 1.0, Abs Immat Gran (auto) 0.10, Seg Neutrophils % 70.2, Lymphocytes % 16.8 L, Monocytes % 7.5, Eosinophils % 3.7, Basophils % 0.8, Neutrophils # 5.50, Lymphocytes # 1.30, Monocytes # 0.60, Eosinophils # 0.30, Basophils # 0.10, Nucleated RBCs 0.0 08/17/20 2239: Whole Bld Glucose 120 Assessment and Plan Conclusion 1. Acute respiratory failure with hypoxia Patient with a history of underlying COPD not on oxygen, presented to the ER on 07/27/2020 after having a syncopal spell at home. During her evaluation she became hypoxic to where her O2 sat dropped to 85% on room air. A chest x-ray at that time showed a possible left lower lobe infiltrate. SARS Cov 2 test negative as well as strep pneumonia and Legionella urine antigens.. She was admitted to the hospital and placed on IV Rocephin with duo nebs and supplemental oxygen. Her oxygen requirements continued to increase to where on day #8 of the hospital stay she was requiring HFNC so was transferred to the DICU with a critical care consult. At that time she had NG tube placed as well. At that time it was felt the patient had a left lower lobe aspiration pneumonia and saturating around 95%. SHe subsequently became more confused with symptoms of encephalopathy. She continued to require high flow oxygen for the following 2 weeks. During her critical care stay her blood sugars became elevated to where she required a sliding scale of insulin. She developed TASHI that improved to 9/0.58 by the time she was transferred to a regular medical floor. Her hemoglobin slowly trended down from the day of admission to as low as 7.6. There was no signs or symptoms of any active bleeding. She did not require any blood transfusions. She has a long history of psychiatric problems so psychiatric consult was obtained. She was continued on BuSpar 20 mg 3 times daily, Prozac 20 mg daily, Tegretol 200 mg 3 times daily and Risperdal 3 mg twice daily. She did require 1 dose of Haldol p.o. on 08/16/2020. She did at times developed hypokalemia that required replacement. She developed diarrhea and had a stool culture obtained on 08/11. This was negative. During her stay she had ST, OT and PT consults. She is now medically stable enough to be transferred to medical floor to continue with her therapies. planner intern is consulted in the event that patient needs to go to a rehab or skilled facility at the time of discharge. 2. Bipolar disorder Continue all of her current psychiatric medications per psychiatry. 3. History of CVA (cerebrovascular accident) Continue home medication of Plavix and pravastatin. 4. DVT prophylaxis will staart heparin SQ bid until more mobile Disclaimer This dictation was created using voice recognition software. Phonetic and/or minor grammatical errors may exist. eSign Date and Time Tila Guan MD Verified/Reviewed by 08/18/201937 [facility] Progress Note-Hospitalist [facility] PROG.Rocael 08-18-2020 PROG.ASHKAN [facility] Patient Name: ANDRE BLANCA [address] Date of : [address] [place], [place] [address] Unit Number: [id number] Progress Note-Adjuster And Inspector Patient Status: ADM IN Attending Doctor: Marta Horvath DO Service Date: 08/18/2046 Progress Note-Adjuster And Inspector Subjective Subjective: Some confusion this morning, but goes in and out of her mentation with good lucid moments . Pulling on her kaiser and would like to get that removed. Objective Vital Signs: Vital Signs (Last) Result Date Time Pulse Ox 89 08/18 606 B/P 115/56 08/18 606 B/P Mean 79 08/18 06 O2 Delivery NASAL CANNULA 08/18 606 O2 Flow Rate 4 08/18 606 Temp 97.8 08/18 606 Pulse 81 08/18 06 Resp 20 08/18 06 IandO 24 Hour Summary 08/18 0000 Intake Total 1510 Output Total 2673 Balance -1163 Intake, Oral 640 Intake, Tube 870 Feeding Output, Stool 3 Output, Urine 2670 Patient 229 lb Weight Exam: Gen: Alert and Oriented x 3, Mild agitation and confusion HEENT:NC, AT, BHARGAV, EOMI, mmm Neck: Supple, no rigidity, Trachea is midline, no LAD Lungs: Coarse Rhonchi bilaterally Heart: RRR, S1/S2, no m/r/g Abd: Soft, NT/ND, +BS X 4 Ext: +1 Edema, + pulses Neuro: CN II - XII Grossly intact, no sensory/motor deficits noted Medications: Medications Current Sig/Antonella Start time Last Medication Dose Route Stop Time Status Admin Acetaminophen 500 MG Q6HPRN PRN 08/04 1930 AC 08/13 (TYLENOL ORAL LIQ) TUBE 1247 Albuterol Sulfate 2.5 MG Q6HPRN PRN 07/28 0030 AC (VENTOLIN/PROVENTIL INH 2.5MG/3ML INH.NEB) Albuterol/Ipratropium 3 ML Q4HRT 08/04 2030 AC 08/18 (DUONEB 0.5-3 MG/3 INH 0727 ML INH.NEB) Albuterol/Ipratropium 3 ML Q2HPRN PRN 07/28 0100 AC (DUONEB 0.5-3 MG/3 INH ML INH.NEB) Budesonide 0.5 MG BID 08/04 2100 AC 08/18 (PULMOCORT 0.5MG/2ML INH 0727 INH.NEB) Buspirone HCl 10 MG TIDWM 08/12 1200 AC 08/17 (BUSPAR TAB) TUBE 1630 Carbamazepine 200 MG TIDWM 08/17 1330 AC 08/17 (TEGRETOL TAB.CHEW) PO 1630 Clopidogrel Bisulfate 75 MG QDAY 08/18 0900 AC (PLAVIX TAB) PO Dexmedetomidine HCl 400 MCG TITRATE(SEE SHAUNA VFS) 08/07 1330 AC 08/12 (PRECEDEX VIAL) IV 0614 Sodium Chloride 96 ML (Sodium Chloride 0.9%) Enoxaparin Sodium 40 MG QDAY 07/28 0900 AC 08/17 (LOVENOX D.SYR) SC 0819 Esomeprazole 20 MG BIDAC 08/17 1908 AC 08/18 Magnesium PO 0613 (NEXIUM CAP (TXI)) Fluoxetine HCl 20 MG QDAY 08/18 0900 AC (PROZAC CAP) PO Guaifenesin 10 ML TID 08/11 1400 AC 08/17 (ROBITUSSIN 200MG/10 TUBE 1335 ML ORAL LIQ) Haloperidol Lactate 2 MG Q4HPRN PRN 08/07 0900 AC 08/18 (HALDOL AMP) IV 0615 Heparin Sodium See Dose Q24H 08/06 0900 AC 08/17 (Porcine) Insts (1) IV 0534 (HEP-LOCK *10*UNITS/ ML IV D.SYR.PF) Heparin Sodium See Dose PRN PRN 08/05 1500 AC 08/17 (Porcine) Insts (2) IV 0048 (HEP-LOCK *10*UNITS/ ML IV D.SYR.PF) Insulin Human Lispro See Dose Q6H 08/16 1100 AC 08/18 (humaLOG/novoLOG PEN) Insts (3) SC 0501 Levothyroxine Sodium 0.125 MG QDAYAC 08/09 0700 AC 08/18 (SYNTHROID TAB) PO 0615 Loperamide HCl 2 MG PRN PRN 08/04 1930 AC 08/17 (IMODIUM AD ORAL TUBE 0851 LIQUID UDC) Melatonin 10 MG QHS 08/17 2199 AC 08/17 (MELATONIN TAB) PO 1958 Menthol/Methyl 1 APPL BIDPRN PRN 07/28 0030 AC 08/15 Salicylate TP 2048 (MIHIR ALVAREZ T.CREAM) Ondansetron HCl 4 MG BIDPRN PRN 08/17 1600 AC (ZOFRAN TAB) PO Ondansetron HCl 4 MG Q6HPRN PRN 07/27 2100 AC 08/04 (ZOFRAN VIAL) IV 212 Pravastatin Sodium 40 MG QHS 08/17 2199 AC 08/17 (PRAVACHOL TAB) PO 1958 Pregabalin 150 MG BID 08/17 2100 AC 08/17 (LYRICA CAP) PO 1957 Quetiapine Fumarate 100 MG QHS 08/08 2200 AC 08/17 (SEROQUEL TAB) TUBE 2000 Risperidone 3 MG BID 08/17 2100 AC 08/17 (RISPERDAL TAB) PO 1957 Sodium Chloride See Dose Q24H 08/06 0900 AC 08/17 (Sodium Chloride Insts (4) IV 0822 0.9% FLUSH D.SYR) Sodium Chloride See Dose PRN PRN 08/05 1500 AC 08/16 (Sodium Chloride Insts (5) IV 1239 0.9% FLUSH D.SYR) Dose Instructions: (1)Heparin Sodium (Porcine) (HEP-LOCK *10*UNITS/ML IV D.SYR.PF): 50-200 UNITS (2)Heparin Sodium (Porcine) (HEP-LOCK *10*UNITS/ML IV D.SYR.PF): 50-200 UNITS (3)Insulin Human Lispro (humaLOG/novoLOG PEN): 1-8 Units (4)Sodium Chloride (Sodium Chloride 0.9% FLUSH D.SYR): 10-40 ML (5)Sodium Chloride (Sodium Chloride 0.9% FLUSH D.SYR): 10-40 ML ABG: ABG-Last Test Result Date Time Blood Gas Specimen Type Cancelled 08/16 499 Sample Site Cancelled 08/16 499 Patient Temperature Cancelled 08/16 499 pH Cancelled 08/16 499 pCO2 (35 - 45 MMHG) 52.4 H 08/11 538 pO2 Cancelled 08/16 499 HCO3 (22 - 26 MMOL/L) 32.5 H 08/11 538 Base Excess (-2.0 - 2.0 MML/L) 7.0 H 08/11 538 ABG O2 Sat (Measured) (90 - 100 %) 92.7 08/11 538 ABG Oximetry (%) 94 08/11 538 ABG O2 Content (15.7 - 21.6 mL/dL) 11.9 L 08/11 538 ABG Hemoglobin (10 - 16 GM/DL) 9.1 L 08/11 538 ABG Reduced Hgb (0 - 5 %) 6.8 H 08/11 538 ABG Carboxyhemoglobin (0 - 10 %) 0.2 08/11 538 ABG Methemoglobin (0.4 - 1.5 %) 0.3 L 08/11 538 ABG O2 Capacity (mL/dL) 12.6 08/11 538 Doug Test Cancelled 08/16 499 Sodium (136 - 148 mmol/L) 147 08/11 538 Potassium (3.5 - 5.0 MMOL/L) 3.2 L 08/11 538 Glucose (60 - 80 MG/DL) 174 H 08/11 538 Lactate Cancelled 08/16 499 Patient Equipment Cancelled 08/16 499 Liter Flow (L/M) 45.00 08/11 538 FiO2 % (%) 52 08/11 538 Lab Results: Lab 24hr (CBC/BMP Fishbone) 08/18/20 0455: Whole Bld Glucose 131 H 08/18/20 0429: [Embedded Image Not Available] Anion Gap LESS THAN 3 L, Est GFR ( Amer) Greater than 60, Est GFR (Non-Af Amer) Greater than 60, BUN/Creatinine Ratio 15, Glucose 146 H, Total Calcium 8.7, Phosphorus 4.50, Magnesium 2.0, RBC 2.67 L, MCV 95.9, MCHC 30.5 L, RDW 15.7 H, MPV 10.5, Immature Gran % (Auto) 1.0, Abs Immat Gran (auto) 0.10, Seg Neutrophils % 70.2, Lymphocytes % 16.8 L, Monocytes % 7.5, Eosinophils % 3.7, Basophils % 0.8, Neutrophils # 5.50, Lymphocytes # 1.30, Monocytes # 0.60, Eosinophils # 0.30, Basophils # 0.10, Nucleated RBCs 0.0 08/17/20 2239: Whole Bld Glucose 120 08/17/20 1624: Whole Bld Glucose 121 08/17/20 1039: Whole Bld Glucose 169 H Assessment/Plan Assessment/Problem List: 1. Acute hypoxemic respiratory failure 70 y/o with PMHx of COPD, HFpEF, Ischemic Stroke who initially was admitted with Syncope to Med Surg on 07/27, followed by a transfer to ICU on 08/04 for worsening hypoxemia. ASSESSMENT: - Acute Hypoxemic Respiratory Failure - LLL Aspiration Pneumonia - Decompensated HFpEF (Stage I in 07/2020) - TASHI (Baseline Cr 0.5) > Resolved - Acute Delirium - Dysphagia - Hx of COPD w/t Centrilobular Emphysema (No PFTs on file) - Hx of Multiple Falls - Hx of Ischemic Stroke - Hx of Hyperlipidemia - Hx of Depression/Anxiety - Hx of Peripheral Neuropathy - Hx of Hypothyrodism - Tobacco Abuse in Remission - Morbid Obesity PLAN: - Currently oxygenating adequately on 4 L of NC ; Continue to wean with Goal SpO2 > 92%. - Continue Duonebs and Budesonide while in the hospital; Resume Home Symbicort upon discharge ; Strongly recommend complete PFT's as outpatient. - Finished 7 days of Unasyn on 08/11 ; Urine Ag/SARS-CoV-2 all negative ; NGTD on sputum cultures - Autodiuresing well with I/O of -1.6 L from yesterday - Continue Home Prozac, Risperdal, Buspar - Continue Tegretol - Continue Home Plavix - Continue Pravastatin - Continue SSI - Continue Levothyroxine - Will need aggressive PT/OT and Speech therapy to help improve her functional decline. - Discontinue Kaiser Catheter today and discontinue restraints - GI/DVT Prophylaxis: Nexium / Lovenox - F/E/N : kvo / None / Pureed Diet - Code Status: DNR- CCA ( OK for intubation) - Discussed by Dr. Loera with patient's son on 08/11. Dispo: Ok to transfer to Med Surg Floor today where [facility] will continue to follow. CCT 32 mins Disclaimer This dictation was created using voice recognition software. Phonetic and/or minor grammatical errors may exist. eSign Date and Time Marge Beckman DO Verified/Reviewed by 08/18/20 0902 [facility] Progress Note-Adjuster And Inspector [facility] PTPNon 08-18-2020 PT Progress Note [facility] PTPN Physical Therapy Inpatient Treatment Note Medical Diagnosis: 1. Acute hypoxemic respiratory failure 2. Syncope 3. Hypothyroidism multiple rib fxs Demographics: Age: 70Y Gender: Female Primary Language: Estonian Preferred Language: Estonian Rehabilitation Precautions/Restrictio ns: 4L via NC, puree / nectar diet SUBJECTIVE Patient Report: " I need a drink." Patient/Caregiver Goals: "Can I have some ice?" Pain: Patient currently without complaints of pain. OBJECTIVE General Observation: Pt seated in recliner upon arrival. Agreeable to session. Nursing ok'd visit. Functional Activities After Today's Session: Transfers: bed mobility sit-> supine and scooting: Pt required SBA and increased time. Patient transferred sit to/from stand requiring minimal assistance of 1 person. Patient used the following equipment: Arms of chair. Slow to rise. Pt denies dizziness upon standing. Locomotion/Ambulation: Patient was moderate assist with gait/ambulation of 1 person for 6' . Patient requires the following assistive device(s): Rolling walker. Pt able to take small steps from recliner to edge of bed including side stepping and retro. Pt experienced minor LOB during and required increased hands on assist to recover. Stairs: Not assessed. Curb Negotiation: Not assessed. AM-PAC Basic Mobility: Turning Over in Bed: A little difficulty Sitting/Standing Chair with Arms: A little difficulty Lying on Back to Sitting on Side of Bed: A little difficulty Moving To/From Bed to Chair: A little help needed Walking in Hospital Room: A little help needed Climbing 3-5 Steps with Railing: A lot of help needed [facility] PATIENT NAME: ANDRE BLANCA [facility] Dr. Andrea MEDICAL REC #: [id number] [place] [address] ADMIT DATE: 07/27/20 SERVICE DATE: 08/18/20 Physical Therapy Progress Note ATTENDING PHY: Marta Horvath DO Raw Score = 17 , AM-PAC t-Scale Score = 42.13 and G-Code Modifier = CK Vital Signs: Not applicable. Interventions: Therapeutic Activities: functional transfer training, sitting balance edge of bed, standing balance w/ (B) UE support, gaiyt training w/ AD. Educated energy conservation, safety, pursed lip breathing. Monitored vitals. Therapeutic Exercise: Bilateral LE sitting: LAQ, marching, ankle pumps, hip abd/add (1 x 15) Pain Reassessment: No significant change in pain during session. Education: Education Provided: Precautions. Pain management. Pain scale. Plan of care. Bed mobility. Functional transfers. Safety. Equipment. Gait. Home exercise/activity plan. Audience: Patient. Mode: Explanation. Demonstration. Response: Applied knowledge. Verbalized understanding. Demonstrated skill. ASSESSMENT Response to Visit: Fair response to session. Pt declined futher ambulation this date d/t fear of falling. Cont to be confused but is oriented x 4. Pt demonstrates impaired balance and decreased activity tolerance. Spo2 dropped 82% on 4L w/ standing. ABle to increase w/ vc for pursed lip breathing and seated rest break. Recommending < 60 min/day therapy upon acute d/c to improve mobility and activity tolerance. Activity/Participation Problem List and Goals: No updates at this time. Progress Toward Goals: TREATMENT GOAL REVIEW: 1. Pt transfer MOD I - Not Met: ongoing 2. Pt ambulate at least 50 feet WW MOD I - Not Met ongoing 3. Demo independence with LE thex for endurance and strengthening - Not Met ongoing Time frame to achieve treatment goal(s): 2 weeks PLAN Treatment Frequency, Duration and Interventions: Continue Physical Therapy to achieve goals per previously established Plan of Care. gait, transfes, endurance, balance, safety Recommended Physical Therapy Follow Up: Upon acute care discharge, the following is currently recommended: Inpatient Physical Therapy, LESS THAN 60 minutes per day. Recommended Equipment: None issued this visit. [facility] PATIENT NAME: ANDRE BLANCA Dr. Andrea MEDICAL REC #: [id number] [place] [address] ADMIT DATE: 07/27/20 SERVICE DATE: 08/18/20 Physical Therapy Progress Note ATTENDING PHY: Marta Horvath DO Recommended Consults: None currently. Development of Plan of Care: There was no change to plan of care today. If there are any questions regarding this service, please contact the Acute Therapy Department at extension [phone] Location of Patient at End of Therapy Session: In bed, bed alarm in place, call light within reach Services: Total Billed: 44 minutes (Timed: 44, Untimed: 0) 34.00 Timed: [61927] THER ACTIVITIES / 15 MIN 10.00 Timed: [21143] THERAPEUTIC EXERCISE EA 15 MIN 0.00 Untimed: [] PT Treatment- General ORDER Signed by: Alivia Cifuentes PTA 08/18/2020 15:00:21 - CoSigned By: Alivia Patel PT 08/18/2020 4:03:[address] [facility] PATIENT NAME: ANDRE BLANCA Dr. Andrea MEDICAL REC #: [id number] [place] [address] ADMIT DATE: 07/27/20 SERVICE DATE: 08/18/20 Physical Therapy Progress Note ATTENDING PHY: Marta Horvath DO [facility] CHIROPRACTIC ASSISTANT Progress Note Normal [facility] Speech/Language Pathology Inpatient Treatment Note Medical Diagnosis: Acute hypoxemic respiratory failure Demographics: Age: 70Y Gender: Female Primary Language: Estonian Preferred Language: Estonian Referring Service/Team: Medicine Rehabilitation Precautions/Restrictio ns: 2L via NC, puree / nectar diet SUBJECTIVE Patient Report: "I'm ok" Patient/Caregiver Goals: "Can I have some ice?" Pain: Patient currently without complaints of pain. OBJECTIVE General Observation: Pt was alert and cooperative. Pt sitting up in recliner eating pureed/nectar lunch. Pt's speech was garbled with several intelligible phrases. Swallowing: Pureed diet with nectar thick liquids Cognition: Not assessed Communication: Patient displays the following communication impairments: Most of speech was unintelligible with several intelligible phrases Functional Status: Pureed/[place] Interventions: Swallowing: Pt was consuming pureed/nectar thick liquid lunch when CHIROPRACTIC ASSISTANT entered room. Pt had mildly increased oral transit with mild lingual pumping. Pt was provided trials of thin liquids via cup and had an immediate cough with 100% of trials. Pt had no coughing with pureed and nectar. Hyolayrngeal excursion was adequate to palpation. Pt did frequently swallow 2x. Recommend continue pureed/nectar thick liquid diet. Pain Reassessment: No pain at onset or during treatment, which does not warrant reassessment. Education: No updates required at this time. ASSESSMENT Response to Visit: Fair; continue to recommend pureed/nectar thick liquid diet Progress Toward Goals: TREATMENT GOAL REVIEW: 1. Patient will tolerate mechanical soft diet with thin liquids without [facility] PATIENT NAME: ANDRE BLANCA [facility] Dr. Andrea MEDICAL REC #: [id number] [place] [address] ADMIT DATE: 07/27/20 SERVICE DATE: 08/18/20 Speech-Language Progress Note ATTENDING PHY: Marta Horvtah DO overt s/s aspiration during a meal without signs of aspiration. - Not Met: Ongoing Time frame to achieve treatment goal(s): 2 weeks PLAN Treatment Frequency, Duration and Interventions: Speech/Language Pathology services recommended for 3 times per week for 2 weeks Speech/Language Pathology treatment is to include: Feeding training, advance diet as as tolerated; oral-pharyngeal program, thermal stim; pt education Recommended Speech/Language Pathology Therapy Follow Up: Upon acute care discharge, the following is currently recommended: Inpatient Speech Language Pathology LESS THAN 60 minutes/day Current Diet Recommendation: Puree diet, nectar liquids, meds crushed in puree, small bites/sips Recommended Consults: None currently. Development of Plan of Care: There was no change to plan of care today. If there are any questions regarding this service, please contact the Acute Therapy Department at extension [phone] Communication to Nursing: No updates at this time. Services: Total Billed: 45 minutes (Timed: 0, Untimed: 45) 0.00 Untimed: [] Speech Treatment ORDER 45.00 Untimed: [[id number]] SWALLOWING DYSFUNCT TX Signed by: LIZABETH RITCHIE 08/18/2020 13:02:16 [facility] PATIENT NAME: ANDRE BLANCA [facility] Dr. Andrea MEDICAL REC #: [id number] [place] [address] ADMIT DATE: 07/27/20 SERVICE DATE: 08/18/20 Speech-Language Progress Note ATTENDING PHY: Marta Horvath DO Normal [facility] CBC W/DIFFon 08-17-2020 BASO ABS 0.10 K/CU MM Normal 0-0.2 [facility] Comment on above: Order Comment: Maciel s: M Minimal Draw: Y Performed By: #### L 500.53240, L500.30091 #### [facility] [address] [place] [address] Basophils/100 WBC (Bld) 0.7 % Normal 0-2 M [facility] Comment on above: Order Comment: Campu s: M Minimal Draw: Y Performed By: #### L 500.17594, L500.98115 #### [facility] [address] [place] [address] EOS ABS 0.30 K/CU MM Normal 0-0.5 [facility] Comment on above: Order Comment: Campu s: M Minimal Draw: Y Performed By: #### L 500.03151, L500.11501 #### [facility] [address] [place] [address] Eosinophils/100 WBC (Bld) 3.7 % Normal 0-5 [facility] Comment on above: Order Comment: Campu s: M Minimal Draw: Y Performed By: #### L 500.00573, L500.71836 #### [facility] [address] [place] [address] Erythrocyte distribution width (RBC) [Ratio] 15.5 % High 11-14.5 [facility] Comment on above: Order Comment: Campu s: M Minimal Draw: Y Performed By: #### L 500.87088, L500.20873 #### [facility] [address] [place] [address] Hematocrit (Bld) [Volume fraction] 24.4 % Low 35.0-47.0 [facility] Comment on above: Order Comment: Campu s: M Minimal Draw: Y Performed By: #### L 500.05317, L500.72113 #### [facility] [address] [place] [address] Hemoglobin (Bld) [Mass/Vol] 7.6 g/dL Low 11.5-15.5 [facility] Comment on above: Order Comment: Campu s: M Minimal Draw: Y Performed By: #### L 500.04059, L500.21497 #### [facility] [address] [place] [address] IMMATR GRAN ABS 0.10 K/CU MM Normal Less than 2 [facility] Comment on above: Order Comment: Abundiou s: M Minimal Draw: Y Performed By: #### L 500.40528, L500.17550 #### [facility] [address] [place] [address] IMMATURE GRAN % 1.0 % Normal Less than 2 [facility] Comment on above: Order Comment: Abundiou s: M Minimal Draw: Y Performed By: #### L 500.37099, L500.15950 #### [facility] [address] [place] [address] Lymphocytes (Bld) [#/Vol] 1.20 K/CU MM Normal 0.9-4.4 [facility] Comment on above: Order Comment: Abundiou s: M Minimal Draw: Y Performed By: #### L 500.55950, L500.68382 #### [facility] [address] [place] [address] Lymphocytes/100 WBC (Bld) 13.5 % Low 20-40 [facility] Comment on above: Order Comment: Abundiou s: M Minimal Draw: Y Performed By: #### L 500.90918, L500.46657 #### [facility] [address] [place] [address] MCHC (RBC) [Mass/Vol] 31.1 g/dL Low 32.0-36.0 [facility] Comment on above: Order Comment: Abundiou s: M Minimal Draw: Y Performed By: #### L 500.61519, L500.17288 #### [facility] [address] [place] [address] MCV (RBC) [Entitic vol] 94.2 fL Normal 80.0-99.0 M [facility] Comment on above: Order Comment: Campu s: M Minimal Draw: Y Performed By: #### L 500.74615, L500.68401 #### [facility] [address] [place] [address] MONO ABS 0.70 K/CU MM Normal 0.1-1.1 [facility] Comment on above: Order Comment: Campu s: M Minimal Draw: Y Performed By: #### L 500.84569, L500.71684 #### [facility] [address] [place] [address] Monocytes/100 WBC (Bld) 7.5 % Normal 2-10 M [facility] Comment on above: Order Comment: Campu s: M Minimal Draw: Y Performed By: #### L 500.53248, L500.63278 #### [facility] [address] [place] [address] NEUTROPHIL ABS 6.60 K/CU MM Normal 2.0-8.3 [facility] Comment on above: Order Comment: Campu s: M Minimal Draw: Y Performed By: #### L 500.40467, [id number] #### [facility] [address] [place], [place] [address] Neutrophils/100 WBC (Bld) 73.6 % Normal 45-75 [facility] Comment on above: Order Comment: Campu s: M Minimal Draw: Y Performed By: #### L 500.23254, L500.43834 #### [facility] [address] [place], [place] [id number] Nucleated RBC/100 WBC (Bld) [Ratio] 0.0 % Normal Less than 1 [facility] Comment on above: Order Comment: Campu s: M Minimal Draw: Y Performed By: #### L 500.82486, L500.07524 #### [facility] [address] [place] [address] Platelet mean volume (Bld) [Entitic vol] 11.0 fL Normal 9.4-12.4 [facility] Comment on above: Order Comment: Campu s: M Minimal Draw: Y Performed By: #### L 500.40650, L500.14053 #### [facility] [address] [place] [address] Platelets (Bld) [#/Vol] 350 K/CU MM Normal 150-450 [facility] Comment on above: Order Comment: Campu s: M Minimal Draw: Y Performed By: #### L 500.71323, L500.35521 #### [facility] [address] [place] [address] RBC (Bld) [#/Vol] 2.59 M/CU MM Low 3.90-5.30 [facility] Comment on above: Order Comment: Campu s: M Minimal Draw: Y Performed By: #### L 500.48801, L500.42126 #### [facility] [address] [place] [address] WBC (Bld) [#/Vol] 9.0 K/CUMM Normal 4.5-11.0 [facility] Comment on above: Order Comment: Campu s: M Minimal Draw: Y Performed By: #### L 500.73474, L500.19690 #### [facility] [address] [place] [address] CMPon 08-17-2020 Albumin [Mass/Vol] 1.9 g/dL Low 3.2-5.0 [facility] Comment on above: Order Comment: Campu s: M Minimal Draw: Y Performed By: #### L 500.99272, L500.10086 #### [facility] [address] [place] [address] Albumin/Globulin [Mass ratio] 0.5 {ratio} Low 0.8-2.0 [facility] Comment on above: Order Comment: Campu s: M Minimal Draw: Y Performed By: #### L 500.43616, L500.26985 #### [facility] [address] [place] [id number] ALK PHOS 112 U/L Normal 45-117 [facility] Comment on above: Order Comment: Campu s: M Minimal Draw: Y Performed By: #### L 500.87445, L500.70856 #### [facility] [address] [place] [address] ALT [Catalytic activity/Vol] 19 U/L Normal 13-61 [facility] Comment on above: Order Comment: Campu s: M Minimal Draw: Y Result Comment: RESU LTS MAY BE FALSELY DEPRESSED AFTER THE ADMINISTRATION OF SULFASALAZINE AND/OR SULFAPYRIDINE. Performed By: #### L 500.91477, L500.29825 #### [facility] [address] [place] [address] Anion gap [Moles/Vol] 3 mmol/L Low 5-16 [facility] Comment on above: Order Comment: Campu s: M Minimal Draw: Y Performed By: #### L 500.18805, L500.55247 #### [facility] [address] [place], [place] [id number] BILI TOTAL 0.20 MG/DL Normal 0.2-1.0 [facility] Comment on above: Order Comment: Campu s: M Minimal Draw: Y Performed By: #### L 500.45729, L500.02876 #### [facility] [address] [place] [id number] Calcium [Mass/Vol] 8.6 mg/dL Normal 8.5-10.5 [facility] Comment on above: Order Comment: Campu s: M Minimal Draw: Y Result Comment: NOTE NEW NORMAL RANGE DUE TO REAGENT CHANGE Performed By: #### L 500.74987, L500.94423 #### [facility] [address] [place] [address] Chloride [Moles/Vol] 98 mmol/L Normal 98-107 [facility] Comment on above: Order Comment: Campu s: M Minimal Draw: Y Performed By: #### L 500.15907, L500.21865 #### [facility] [address] [place] [address] CO2 [Moles/Vol] 39.0 mmol/L High 21-32 [facility] Comment on above: Order Comment: Campu s: M Minimal Draw: Y Performed By: #### L 500.51029, L500.59209 #### [facility] [address] [place] [address] Creatinine [Mass/Vol] 0.57 mg/dL Normal 0.510-0.950 [facility] Comment on above: Order Comment: Campu s: M Minimal Draw: Y Result Comment: Geraldine ents receiving either N-Acetylcysteine (NAC) or Metamizole prior to venipuncture, may have falsely depressed results. Performed By: #### L 500.67925, L500.82573 #### [facility] [address] [place] [address] Globulin (S) [Mass/Vol] 4.0 g/dL Normal 2.2-4.2 [facility] Comment on above: Order Comment: Campu s: M Minimal Draw: Y Performed By: #### L 500.08544, L500.37264 #### [facility] [address] [place], [place] [id number] Glucose [Mass/Vol] 131 mg/dL High 70-100 [facility] Comment on above: Order Comment: Campu s: M Minimal Draw: Y Result Comment: 70-1 00- Normal Fasting; 100-125 Impaired Fasting; greater than 126 on more than one result- Diabetes. ADA guidelines. Results may be falsely elevated after the administration of Sulfapyridine. Results may be falsely depressed after the administration of Sulfasalazine. Performed By: #### L 500.80020, L500.49434 #### [facility] [address] [place] [address] Potassium [Moles/Vol] 3.9 mmol/L Normal 3.5-5.1 [facility] Comment on above: Order Comment: Campu s: M Minimal Draw: Y Performed By: #### L 500.17293, L500.38281 #### [facility] [address] [place] [address] Protein [Mass/Vol] 5.9 g/dL Low 6.0-8.5 [facility] Comment on above: Order Comment: Campu s: M Minimal Draw: Y Performed By: #### L 500.04750, L500.32179 #### [facility] [address] [place] [address] SGOT (AST) 21 U/L Normal 8-34 [facility] Comment on above: Order Comment: Campu s: M Minimal Draw: Y Result Comment: RESU LTS MAY BE FALSELY DEPRESSED AFTER THE ADMINISTRATION OF SULFASALAZINE AND/OR SULFAPYRIDINE. Performed By: #### L 500.63850, L500.64048 #### [facility] [address] [place] [address] Sodium [Moles/Vol] 138 mmol/L Normal 136-145 [facility] Comment on above: Order Comment: Campu s: M Minimal Draw: Y Performed By: #### L 500.67584, L500.42907 #### [facility] [address] [place] [address] Urea nitrogen [Mass/Vol] 10 mg/dL Normal 7-26 [facility] Comment on above: Order Comment: Campu s: M Minimal Draw: Y Performed By: #### L 500.12994, L500.42828 #### [facility] [address] [place] [address] Urea nitrogen/Creatinine [Mass ratio] 18 mg/mg Normal 15-24 [facility] Comment on above: Order Comment: Abundiou s: M Minimal Draw: Y Performed By: #### L 500.45653, L500.26846 #### [facility] [address] [place] [id number] GFR ESTon 08-17-2020 IF AMER Greater than 60 Normal [facility] Comment on above: Order Comment: Abundiou s: M Minimal Draw: Y Performed By: #### L 500.31690, L500.33453 #### [facility] [address] [place] [address] IF non-AFR AMER Greater than 60 Normal [facility] Comment on above: Order Comment: Abundiou s: M Minimal Draw: Y Performed By: #### L 500.86045, L500.97803 #### [facility] [address] [place] [address] GLUCOSE METERon 08-17-2020 Glucose [Mass/Vol] 121 mg/dL Normal 85-125 [facility] Glucose [Mass/Vol] 169 mg/dL High 85-125 [facility] MAGNESIUMon 08-17-2020 Magnesium [Mass/Vol] 2.1 MG/CL Normal 1.6-2.6 [facility] Comment on above: Order Comment: Maciel s: M What is the source? URINE Performed By: #### M 150.55734, M150.96755 #### [facility] [address] [place] [id number] PROG.INTENon 08-17-2020 PROG.INTEN [facility] Patient Name: ANDRE BLANCA [facility] [place] Date of : [address] [address] Unit Number: [id number] Progress Note-Adjuster And Inspector Patient Status: ADM IN Attending Doctor: Marta Horvath DO Service Date: 08/17/20 1505 Progress Note-Adjuster And Inspector Subjective Subjective: Patient examined chart reviewed. Patient up in chair off HFNC, on 6 L nasal cannula. States her breathing feels the same. Shortness of breath with transfers, slight productive cough with clear sputum. States he is having multiple liquid bowel movements. Denies chest pain, lightheaded, dizziness, dysuria. Objective Vital Signs: Vital Signs (Last) Result Date Time Pulse Ox 90 08/17 1343 Pulse 89 08/17 1343 B/P 105/54 08/17 1149 O2 Delivery HIGH FLOW NC 08/17 1149 O2 Flow Rate 10L 08/17 1149 Temp 98.0 08/17 1149 Resp 16 08/17 1149 B/P Mean 93 08/17 0600 IandO 24 Hour Summary 08/17 0000 Intake Total 1617 Output Total 3653 Balance -203 Intake, Oral 210 Intake, Tube 1407 Feeding Output, Stool 3 Output, Urine 3650 Patient 246 lb Weight Exam: General: Arousable answering questions about self. Heart: RRR,nl s1/s2 HEENT: NG in place. Lungs: Course BS bilaterally R > L; Abdomen: Soft, nt, nd, + BS, obese Extremities: No LE edema Neurologic: Answering questions about self, moving extremities x4, psychiatric agitation seems better Medications: Medications Current Sig/Antonella Start time Last Medication Dose Route Stop Time Status Admin Acetaminophen 500 MG Q6HPRN PRN 08/04 193 AC 08/13 (TYLENOL ORAL LIQ) TUBE 1247 Albuterol Sulfate 2.5 MG Q6HPRN PRN 07/28 0030 AC (VENTOLIN/PROVENTIL INH 2.5MG/3ML INH.NEB) Albuterol/Ipratropium 3 ML Q4HRT 08/04 2030 AC 08/17 (DUONEB 0.5-3 MG/3 INH 1156 ML INH.NEB) Albuterol/Ipratropium 3 ML Q2HPRN PRN 07/28 0100 AC (DUONEB 0.5-3 MG/3 INH ML INH.NEB) Budesonide 0.5 MG BID 08/04 2100 AC 08/17 (PULMOCORT 0.5MG/2ML INH 0755 INH.NEB) Buspirone HCl 10 MG TIDWM 08/12 1200 AC 08/17 (BUSPAR TAB) TUBE 1131 Carbamazepine 200 MG TIDWM 08/17 1330 AC 08/17 (TEGRETOL TAB.CHEW) PO 1335 Clopidogrel Bisulfate 75 MG QDAY 08/05 0900 AC 08/17 (PLAVIX TAB) TUBE 0819 Dexmedetomidine HCl 400 MCG TITRATE(SEE SHAUNA VFS) 08/07 1330 AC 08/12 (PRECEDEX VIAL) IV 0614 Sodium Chloride 96 ML (Sodium Chloride 0.9%) Enoxaparin Sodium 40 MG QDAY 07/28 0900 AC 08/17 (LOVENOX D.SYR) SC 0819 Esomeprazole 40 MG BIDAC 08/05 0700 AC 08/17 Magnesium TUBE 0525 (NEXIUM CAP (TXI)) Fluoxetine HCl 20 MG QDAY 08/05 0900 AC 08/17 (PROZAC CAP) TUBE 0819 Guaifenesin 10 ML TID 08/11 1400 AC 08/17 (ROBITUSSIN 200MG/10 TUBE 1335 ML ORAL LIQ) Haloperidol Lactate 2 MG Q4HPRN PRN 08/07 0900 AC 08/17 (HALDOL AMP) IV 0538 Heparin Sodium See Dose Q24H 08/06 0900 AC 08/17 (Porcine) Insts (1) IV 0534 (HEP-LOCK *10*UNITS/ ML IV D.SYR.PF) Heparin Sodium See Dose PRN PRN 08/05 1500 AC 08/17 (Porcine) Insts (2) IV 0048 (HEP-LOCK *10*UNITS/ ML IV D.SYR.PF) Insulin Human Lispro See Dose Q6H 08/16 1100 AC 08/17 (humaLOG/novoLOG PEN) Insts (3) SC 1046 Levothyroxine Sodium 0.125 MG QDAYAC 08/09 0700 AC 08/17 (SYNTHROID TAB) PO 0525 Loperamide HCl 2 MG PRN PRN 08/04 1930 AC 08/17 (IMODIUM AD ORAL TUBE 0851 LIQUID UDC) Melatonin 10 MG QHS 08/09 2200 AC 08/16 (MELATONIN TAB) TUBE 2015 Menthol/Methyl 1 APPL BIDPRN PRN 07/28 0030 AC 08/15 Salicylate TP 2048 (MIHIR ALVAREZ T.CREAM) Ondansetron HCl 4 MG BIDPRN PRN 12/22 1930 AC (ZOFRAN TAB) TUBE Ondansetron HCl 4 MG Q6HPRN PRN 07/27 2100 AC 08/04 (ZOFRAN VIAL) IV 212 Pravastatin Sodium 40 MG QHS 08/04 2200 AC 08/16 (PRAVACHOL TAB) TUBE 2015 Pregabalin 150 MG BID 08/04 2100 AC 08/17 (LYRICA CAP) TUBE 0823 Quetiapine Fumarate 100 MG QHS 08/08 2200 AC 08/16 (SEROQUEL TAB) TUBE 2015 Risperidone 3 MG BID 08/09 2100 AC 08/17 (RISPERDAL TAB) TUBE 0819 Sodium Chloride 4 ML QIDRT 08/14 1630 AC 08/17 (Sodium Chloride 3% INH 1155 INH.neb) Sodium Chloride See Dose Q24H 08/06 0900 AC 08/17 (Sodium Chloride Insts (4) IV 0822 0.9% FLUSH D.SYR) Sodium Chloride See Dose PRN PRN 08/05 1500 AC 08/16 (Sodium Chloride Insts (5) IV 1239 0.9% FLUSH D.SYR) Dose Instructions: (1)Heparin Sodium (Porcine) (HEP-LOCK *10*UNITS/ML IV D.SYR.PF): 50-200 UNITS (2)Heparin Sodium (Porcine) (HEP-LOCK *10*UNITS/ML IV D.SYR.PF): 50-200 UNITS (3)Insulin Human Lispro (humaLOG/novoLOG PEN): 1-8 Units (4)Sodium Chloride (Sodium Chloride 0.9% FLUSH D.SYR): 10-40 ML (5)Sodium Chloride (Sodium Chloride 0.9% FLUSH D.SYR): 10-40 ML ABG: ABG-Last Test Result Date Time Blood Gas Specimen Type Cancelled 08/16 050 Sample Site Cancelled 08/16 050 Patient Temperature Cancelled 08/16 050 pH Cancelled 08/16 050 pCO2 (35 - 45 MMHG) 52.4 H 08/11 05 pO2 Cancelled 08/16 050 HCO3 (22 - 26 MMOL/L) 32.5 H 08/11 538 Base Excess (-2.0 - 2.0 MML/L) 7.0 H 08/11 538 ABG O2 Sat (Measured) (90 - 100 %) 92.7 08/11 538 ABG Oximetry (%) 94 08/11 538 ABG O2 Content (15.7 - 21.6 mL/dL) 11.9 L 08/11 538 ABG Hemoglobin (10 - 16 GM/DL) 9.1 L 08/11 538 ABG Reduced Hgb (0 - 5 %) 6.8 H 08/11 538 ABG Carboxyhemoglobin (0 - 10 %) 0.2 08/11 538 ABG Methemoglobin (0.4 - 1.5 %) 0.3 L 08/11 538 ABG O2 Capacity (mL/dL) 12.6 08/11 538 Doug Test Cancelled 08/16 499 Sodium (136 - 148 mmol/L) 147 08/11 538 Potassium (3.5 - 5.0 MMOL/L) 3.2 L 08/11 538 Glucose (60 - 80 MG/DL) 174 H 08/11 538 Lactate Cancelled 08/16 050 Patient Equipment Cancelled 08/16 499 Liter Flow (L/M) 45.00 08/11 538 FiO2 % (%) 52 08/11 538 Lab Results: Lab 24hr (CBC/BMP [facility]) 08/17/20 1039: Whole Bld Glucose 169 H 08/17/20 0307: Magnesium 2.1 08/17/20 0307: [Embedded Image Not Available] Anion Gap LESS THAN 3 L, Est GFR ( Amer) Greater than 60, Est GFR (Non-Af Amer) Greater than 60, BUN/Creatinine Ratio 18, Glucose 131 H, Total Calcium 8.6, Total Bilirubin 0.20, AST 21, ALT 19, Alkaline Phosphatase 112, Serum Total Protein 5.9 L, Albumin 1.9 L, Globulin 4.0, Albumin/Globulin Ratio 0.5 L, RBC 2.59 L, MCV 94.2, MCHC 31.1 L, RDW 15.5 H, MPV 11.0, Immature Gran % (Auto) 1.0, Abs Immat Gran (auto) 0.10, Seg Neutrophils % 73.6, Lymphocytes % 13.5 L, Monocytes % 7.5, Eosinophils % 3.7, Basophils % 0.7, Neutrophils # 6.60, Lymphocytes # 1.20, Monocytes # 0.70, Eosinophils # 0.30, Basophils # 0.10, Nucleated RBCs 0.0 08/16/202020: Whole Bld Glucose 128 H 08/16/20 1724: Whole Bld Glucose 129 H Assessment/Plan Assessment/Problem List: 1. Acute hypoxemic respiratory failure 70 y/o with PMHx of COPD, HFpEF, CVA, and Former Tobacco Abuse presented to [facility] emergency department on 07/27 secondary to Syncope and was admitted to telemetry. Our service was consulted on 08/04 secondary to Worsening Hypoxemia requiring HFNC. She is being transferred to the D-ICU. ASSESSMENT: - LLL Aspiration Pneumonia - Acute Hypoxemic Respiratory Failure 2/2 above - Nausea and Vomitting - Encephalopathy - TASHI 2/2 Dehydration - HFpEF (EF 60-65% per Echo 07/2020) - Tobacco Abuse, in Remission - Obesity - Hx of COPD (no PFTs on file) - Hx of CVA -History of multiple falls -History of psychiatric illness PLAN: * Currently oxygenating 6 L nasal cannula, titration as tolerated. Continue to wean with goal > SpO2 88% * CXR 08/14 improved from 08/11. Bilateral interstitial and alveolar infiltrates/edema * Weaned off of Precedex. Patient with long history of psychiatric illness. Psychiatry help appreciated. * No documented fevers. Mild leukocytosis. Urine Ag/SARS-CoV-2 negative. * Finished IV Unasyn (Day #02/17) for aspiration pneumonia, watch off antibiotics. Watch symptoms. * Abdominal X-ray ==> neg for ileus/obstruction, NG tube in for feeds. Will need speech evaluation * Speech evaluation okay for pur ed/nectar thick. NG has been DC'd * Continue scheduled and PRN Duonebs. Add Budesonide. Resume home Symbicort upon discharge * Continue Incentive Spirometry. Add Acapella Flutter Valve and Hypertonic Saline Nebs for proper pulmonary toilet; add guaifenesin * improved renal function w fluids, normalized by most recent testing. * Replace electrolytes. 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 Patient spent time at the [facility] according to son, that is the facility that she met her . * History of multiple falls in the past. * From critical care standpoint patient is okay for transfer to floors * F/E/N: HL fluids/replete lytes as needed /c/w TFs * GI/DVT Prophylaxis: PO nexium/Lovenox * CODE STATUS: DNR Comfort Care arrest, discussed with son Giana Blanca, area code . Did also discuss if patient is functionally declining, consider changing CODE STATUS to comfort only. Patient son was updated on 08/11/2020. ATTENDING ATTESTATION: Patient individually seen/examined. Agree with the EDUCATION ADVISER's notes, assessment and plan. Continue diuresis, currently down to 4 L of NC. Able to tolerate modified diet as well. CCT 35 mins Collaborating Physician: Marge Beckman DO Disclaimer This dictation was created using voice recognition software. Phonetic and/or minor grammatical errors may exist. eSign Date and Time Marge Beckman DO Verified/Reviewed by 08/17/20 1542 Jamaal Thompson CNP [facility] Progress Note-Adjuster And Inspector [facility] PROG.PSYCHon 08-17-2020 PROG.PSYCH [facility] Patient Name: ANDRE BLANCA [address] [employer] [address] Date of : [address] [place], [place] [address] Unit Number: [id number] Progress Note-Psych Patient Status: DIS IN Attending Doctor: Marta Horvath DO Service Date: 08/17/20 0849 Progress Note - PSYCH Subjective: (2 ROS minimum) She says she slept well. She also says that she is hungry, sleepy and has had diarrhea. Objective: General appearance is alert. She is oriented to person says that she is in [facility] and the year is 2011. Concentration is fair. Speech is spontaneous and somewhat garbled. Mood is anxious. Thinking is confused. At times she has been constantly talking and telling nurses to call Ana. She has needed as needed Haldol. Current Medications: Medications Current Sig/Antonella Start time Last Medication Dose Route Stop Time Status Admin Acetaminophen 500 MG Q6HPRN PRN 08/04 1930 AC 08/13 (TYLENOL ORAL LIQ) TUBE 1247 Albuterol Sulfate 2.5 MG Q6HPRN PRN 07/28 0030 AC (VENTOLIN/PROVENTIL INH 2.5MG/3ML INH.NEB) Albuterol/Ipratropium 3 ML Q4HRT 08/04 2030 AC 08/17 (DUONEB 0.5-3 MG/3 INH 0755 ML INH.NEB) Albuterol/Ipratropium 3 ML Q2HPRN PRN 07/28 0100 AC (DUONEB 0.5-3 MG/3 INH ML INH.NEB) Budesonide 0.5 MG BID 08/04 2100 AC 08/17 (PULMOCORT 0.5MG/2ML INH 0755 INH.NEB) Buspirone HCl 10 MG TIDWM 08/12 1200 AC 08/17 (BUSPAR TAB) TUBE 0819 Carbamazepine 200 MG TIDWM 08/17 0930 AC (TEGRETOL 200MG/10ML TUBE SUSP) Clopidogrel Bisulfate 75 MG QDAY 08/05 0900 AC 08/17 (PLAVIX TAB) TUBE 0819 Dexmedetomidine HCl 400 MCG TITRATE(SEE SHAUNA VFS) 08/07 1330 AC 08/12 (PRECEDEX VIAL) IV 0614 Sodium Chloride 96 ML (Sodium Chloride 0.9%) Enoxaparin Sodium 40 MG QDAY 07/28 0900 AC 08/17 (LOVENOX D.SYR) SC 0819 Esomeprazole 40 MG BIDAC 08/05 0700 AC 08/17 Magnesium TUBE 0525 (NEXIUM CAP (TXI)) Fluoxetine HCl 20 MG QDAY 08/05 0900 AC 08/17 (PROZAC CAP) TUBE 0819 Guaifenesin 10 ML TID 08/11 1400 AC 08/17 (ROBITUSSIN 200MG/10 TUBE 0819 ML ORAL LIQ) Haloperidol Lactate 2 MG Q4HPRN PRN 08/07 0900 AC 08/17 (HALDOL AMP) IV 0538 Heparin Sodium See Dose Q24H 08/06 0900 AC 08/17 (Porcine) Insts (1) IV 0534 (HEP-LOCK *10*UNITS/ ML IV D.SYR.PF) Heparin Sodium See Dose PRN PRN 08/05 1500 AC 08/17 (Porcine) Insts (2) IV 0048 (HEP-LOCK *10*UNITS/ ML IV D.SYR.PF) Insulin Human Lispro See Dose Q6H 08/16 1100 AC 08/16 (humaLOG/novoLOG PEN) Insts (3) SC 1044 Levothyroxine Sodium 0.125 MG QDAYAC 08/09 0700 AC 08/17 (SYNTHROID TAB) PO 0525 Loperamide HCl 2 MG PRN PRN 08/04 1930 AC 08/14 (IMODIUM AD ORAL TUBE 0849 LIQUID UDC) Melatonin 10 MG QHS 08/09 2200 AC 08/16 (MELATONIN TAB) TUBE 2014 Menthol/Methyl 1 APPL BIDPRN PRN 07/28 0030 AC 08/15 Salicylate TP 2048 (MIHIR ALVAREZ T.CREAM) Ondansetron HCl 4 MG BIDPRN PRN 08/04 1930 AC (ZOFRAN TAB) TUBE Ondansetron HCl 4 MG Q6HPRN PRN 07/27 2100 AC 08/04 (ZOFRAN VIAL) IV 212 Pravastatin Sodium 40 MG QHS 08/04 2200 AC 08/16 (PRAVACHOL TAB) TUBE 2015 Pregabalin 150 MG BID 08/04 2100 AC 08/17 (LYRICA CAP) TUBE 0823 Quetiapine Fumarate 100 MG QHS 08/08 2200 AC 08/16 (SEROQUEL TAB) TUBE 2015 Risperidone 3 MG BID 08/09 2100 AC 08/17 (RISPERDAL TAB) TUBE 0819 Sodium Chloride 4 ML QIDRT 08/14 1630 AC 08/17 (Sodium Chloride 3% INH 0817 INH.neb) Sodium Chloride See Dose Q24H 08/06 0900 AC 08/17 (Sodium Chloride Insts (4) IV 0822 0.9% FLUSH D.SYR) Sodium Chloride See Dose PRN PRN 08/05 1500 AC 08/16 (Sodium Chloride Insts (5) IV 1239 0.9% FLUSH D.SYR) Dose Instructions: (1)Heparin Sodium (Porcine) (HEP-LOCK *10*UNITS/ML IV D.SYR.PF): 50-200 UNITS (2)Heparin Sodium (Porcine) (HEP-LOCK *10*UNITS/ML IV D.SYR.PF): 50-200 UNITS (3)Insulin Human Lispro (humaLOG/novoLOG PEN): 1-8 Units (4)Sodium Chloride (Sodium Chloride 0.9% FLUSH D.SYR): 10-40 ML (5)Sodium Chloride (Sodium Chloride 0.9% FLUSH D.SYR): 10-40 ML Assessment/Plan Conclusion 1. Bipolar 1 disorder, mixed, moderate She has continued to have anxiety. She should continue BuSpar 10 mg 3 times daily, Tegretol 200 mg 3 times daily, Prozac 20 mg a day, Seroquel 100 mg at night, Risperdal 3 mg twice daily, melatonin 10 mg nightly, and Haldol 2 mg IV as needed. She will need further reorientation and support. Ongoing Stable Problems Problems not specifically addressed in the above plan are stable and do not warrant adjustment of the current method of therapy. Disclaimer This dictation was created using voice recognition software. Phonetic and/or minor grammatical errors may exist. eSign Date and Time Milind Gates MD Verified/Reviewed by 08/24/20 0743 [facility] Progress Note-Psych [facility] PTPN 08-17-2020 PT Progress Note [facility] PTPN Physical Therapy Inpatient Treatment Note Medical Diagnosis: 1. Acute hypoxemic respiratory failure 2. Syncope 3. Hypothyroidism multiple rib fxs Demographics: Age: 70Y Gender: Female Primary Language: Estonian Preferred Language: Estonian Rehabilitation Precautions/Restrictio ns: restraints, 6L via NC SUBJECTIVE Patient Report: Pt. pleasant easily agreeable to therapy, pleasantly confused; oriented to person, place, time but rambling at times with no significant conversation but will respond appropriately 50% of the time when redirected Patient/Caregiver Goals: "I want something to eat". Pain: Patient currently without complaints of pain. OBJECTIVE General Observation: Pt in chair, agreeable. 2-point restraints in place, removed for treatment but reapplied at end of session; 6L with O2 at 90% Functional Activities After Today's Session: Transfers: Patient transferred sit to/from stand requiring minimal assistance of 1 person. Patient used the following equipment: Arms of chair. patient stood at BS chair; pt. with bilateral knee buckling and sycope-like episode without full loss of consciousness; immediately assisted patient back to sitting and patient consciousness unchanged and patient responding appropriately and the same Locomotion/Ambulation: Not assessed/applicable d/t above; not safe to attempt Stairs: Not assessed. Curb Negotiation: Not assessed. AM-PAC Basic Mobility: Turning Over in Bed: A little difficulty Sitting/Standing Chair with Arms: A little difficulty Lying on Back to Sitting on Side of Bed: A little difficulty Moving To/From Bed to Chair: A little help needed Walking in Hospital Room: A lot of help needed Climbing 3-5 Steps with Railing: A lot of help needed [facility] PATIENT NAME: ANDRE BLANCA [facility] Dr. Andrea MEDICAL REC #: [id number] [place] [address] ADMIT DATE: 07/27/20 SERVICE DATE: 08/17/20 Physical Therapy Progress Note ATTENDING PHY: Marta Horvath DO Raw Score = 16 , AM-PAC t-Scale Score = 40.78 and G-Code Modifier = CK Vital Signs: Vitals: BP initially 118/65 mmHg, immediately following sit<>stand 110/65 mmHg, HR 86-87bpm, O2 at 90% Interventions: Therapeutic Activities: Functional transfers and education on safety, fall risk management, BP parameters Therapeutic Exercise: Bilateral LE TE sitting: LAQ, s/l marching, ankle pumps, hip abd/add (1 x 15) Pain Reassessment: No pain at onset or during treatment, which does not warrant reassessment. Education: Education Provided: Plan of care. Functional transfers. Safety. Audience: Patient. Mode: Explanation. Demonstration. Response: Verbalized understanding. Needs reinforcement. ASSESSMENT Response to Visit: Pt. tolerated session fair. She was unable to ambulate and perform more standing task as patient buckled with standing and reported "I just feel like the lights went out", notified Azucena DALTON, vital sigsn monitored continuously with no changes on monitor. Will continue to progress as able. Given her current function will continue to recommend <60 mins therapy/day Activity/Participation Problem List and Goals: No updates at this time. Progress Toward Goals: TREATMENT GOAL REVIEW: 1. Pt transfer MOD I - Not Met: ongoing 2. Pt ambulate at least 50 feet WW MOD I - Not Met ongoing 3. Demo independence with LE thex for endurance and strengthening - Not Met ongoing Time frame to achieve treatment goal(s): 2 weeks PLAN Treatment Frequency, Duration and Interventions: Continue Physical Therapy to achieve goals per previously established Plan of Care. gait, transfes, endurance, balance, safety Recommended Physical Therapy Follow Up: Upon acute care discharge, the following is currently recommended: Inpatient Physical Therapy, LESS THAN 60 minutes per day. Recommended Equipment: Rolling walker. Recommended Consults: Development of Plan of Care: There was no change to plan of care today. [facility] PATIENT NAME: ANDRE BLANCA Traci Andrea MEDICAL REC #: [id number] [place] [address] ADMIT DATE: 07/27/20 SERVICE DATE: 08/17/20 Physical Therapy Progress Note ATTENDING PHY: Marta Horvath DO If there are any questions regarding this service, please contact the Acute Therapy Department at extension [phone] Location of Patient at End of Therapy Session: In chair, chair alarm in place, call light within reach 2 point wrist restraints reapplied Services: Total Billed: 25 minutes (Timed: 25, Untimed: 0) 10.00 Timed: [14779] THER ACTIVITIES / 15 MIN 15.00 Timed: [97820] THERAPEUTIC EXERCISE EA 15 MIN 0.00 Untimed: [] PT Treatment- General ORDER Signed by: Ioana Holden, 08/17/2020 15:19:34 [facility] PATIENT NAME: ANDRE BLANCA Traci Andrea MEDICAL REC #: [id number] [place] [address] ADMIT DATE: 07/27/20 SERVICE DATE: 08/17/20 Physical Therapy Progress Note ATTENDING PHY: Marta [facility]ath DO [facility] CHIROPRACTIC ASSISTANT Progress Note [facility] Speech/Language Pathology Inpatient Treatment Note Medical Diagnosis: Acute hypoxemic respiratory failure Demographics: Age: 70Y Gender: Female Primary Language: Estonian Preferred Language: Estonian Referring Service/Team: Cardiology Rehabilitation Precautions/Restrictio ns: NG tube, restraints, high flow NC, SUBJECTIVE Patient Report: Pt was very pleasant, eager to eat. "I'd like to take a nap after I get something to eat". Patient/Caregiver Goals: "I want something to eat". Pain: Patient currently without complaints of pain. OBJECTIVE General Observation: Pt was awake and alert, very pleasant and cooperative. Pt told CHIROPRACTIC ASSISTANT that she had dysphagia prior to admit from her previous stroke. She said she would sometimes choke on solid foods. [facility] as he hoped the NGT could be removed today. Swallowin/2- NPO recommended 1/- Puree, nectar liquids Cognition: Pt is able to follow simple commands, and answer questions appropriately. Communication: Patient displays the following communication impairments: Dysarthria. Functional Status: NPO/NGT Interventions: Swallowing: Swallow re-assessment completed this session. Pt has adequate lingual rom, adequate protrusion and lateral strength, however, tongue base strength was mild-mod reduced. Vocal quality was clear, no wetness was noted. Breath support was mildy reduced. Volitional cough was good. Pt has a top denture plate, but no lower teeth. . Pt was presented with nectar liquids, thin liquid (x1 via spoon), and pudding, fed by CHIROPRACTIC ASSISTANT. Pt had mildly increased a-p movement with all consistencies. Mild lingual pumping noted. Pt appeared to have rapid loss of oral control and pharyngeal discoordination with thin liquids as an immediate reflexive cough response occured after the swallow. With the initial sip of nectar liquid via spoon, pt coughed x1. However, multiple subsequent trials of nectar liquid via [facility] PATIENT NAME: ANDRE BLANCA [facility] Dr. Andrea MEDICAL REC #: [id number] [place] [address] ADMIT DATE: 07/27/20 SERVICE DATE: 08/17/20 Speech-Language Progress Note ATTENDING PHY: Marta Horvath DO spoon and cup were presented without any signs of aspiration. Swallow response was 3 seconds delayed, with improved laryngeal elevation. Pt tolerated puree consistencies with no signs of aspiration, and adequate laryngeal elevation. Pt often re-swallowed x2, but then denied pharyngeal residues after the second swallow. Improvement was noted with swallow function since the initial evaluation. Recommend a puree diet with nectar liquids. This was d/w pt and nursing. Pain Reassessment: No pain at onset or during treatment, which does not warrant reassessment. Education: Learning Preference: Explanation Barriers to Learning: Cognitive limitations Learning Needs: Swallowing Education Provided: Diet texture recommendations. Swallow precautions. Audience: Patient., Nurse Mode: Explanation. Response: Verbalized understanding. Needs practice. Demonstrated skill. ASSESSMENT Response to Visit: Patient tolerated well, improved swallow function noted. Pt had an immediate reflexive cough with thin liquids, but was able to tolerate puree and nectar liquids in small bites and sips without difficulty. Pt would benefit from 100% assistance with meals to ensure safety and effective use of swallow strategies to reduce risk of aspiration. Next session: Feeding training, dysphagia tx, advance diet as tolerated Progress Toward Goals: TREATMENT GOAL REVIEW: 1. Patient will tolerate pureed diet with nectar thick liquids without overt s/s aspiration. - Not Met: ongoing, just advanced to puree/nectar this session New Goal: Patient will tolerate mechanical soft diet with thin liquids without overt s/s aspiration during a meal without signs of aspiration. 2. Pt will improve swallow response time to 1-2 seconds via thermal tactile stimulation to improve swallow safety - Not Met: ongoing New Goal 3. Improve oral motor strength needed for improved bolus formation and speech intelligiblity via oral motor program Time frame to achieve treatment goal(s): 2 weeks PLAN Treatment Frequency, Duration and Interventions: Speech/Language Pathology services recommended for 5 times per week for 2 weeks Speech/Language Pathology treatment is to include: Feeding training, advance diet as atolerated; oral-pharyngeal program, thermal stim, possible MBS pending patient progress; pt education [facility] REC #: [id number] [place] [address] ADMIT DATE: 07/27/20 SERVICE DATE: 08/17/20 Speech-Language Progress Note ATTENDING PHY: Marta oHrvath DO Recommended Speech/Language Pathology Therapy Follow Up: Upon acute care discharge, the following is currently recommended: Inpatient Speech Language Pathology LESS THAN 60 minutes/day Current Diet Recommendation: Puree diet, nectar liquids, meds crushed in puree, small bites/sips, 100% assistance during meals Recommended Consults: None currently. Development of Plan of Care: Patient participated in plan of care development today. If there are any questions regarding this service, please contact the Acute Therapy Department at extension [phone] Communication to Nursing: Puree, nectar liquids, meds crushed in puree, 100% assistance Location of Patient at End of Therapy Session: In bed, bed alarm in place, call light within reach Services: Total Billed: 45 minutes (Timed: 0, Untimed: 45) 0.00 Untimed: [] Speech Treatment ORDER 45.00 Untimed: [89846] SWALLOWING DYSFUNCT TX Signed by: MÓNICA BERMUDEZ, LIZABETH 08/17/2020 10:36:22 [facility] PATIENT [facility] MEDICAL REC #: [id number] [place] [address] ADMIT DATE: 07/27/20 SERVICE DATE: 08/17/20 Speech-Language Progress Note ATTENDING PHY: Marta Horvath DO Normal [facility] CBC W/DIFFon 08-16-2020 BASO ABS 0.10 K/CU MM Normal 0-0.2 [facility] Comment on above: Order Comment: Campu s: M What is the source? URINE Performed By: #### M 150.29800, M150.07043 #### [facility] [address] [place] [address] Basophils/100 WBC (Bld) 0.7 % Normal 0-2 M [facility] Comment on above: Order Comment: Campu s: M What is the source? URINE Performed By: #### M 150.82586, M150.80295 #### [facility] [address] [place] [address] EOS ABS 0.40 K/CU MM Normal 0-0.5 [facility] Comment on above: Order Comment: Campu s: M What is the source? URINE Performed By: #### M 150.10939, M150.91756 #### [facility] [address] [place] [address] Eosinophils/100 WBC (Bld) 4.1 % Normal 0-5 [facility] Comment on above: Order Comment: Campu s: M What is the source? URINE Performed By: #### M 150.66171, M150.41886 #### [facility] [address] [place] [address] Erythrocyte distribution width (RBC) [Ratio] 15.8 % High 11-14.5 [facility] Comment on above: Order Comment: Campu s: M What is the source? URINE Performed By: #### M 150.59231, M150.08516 #### [facility] [address] [place] [address]796 Hematocrit (Bld) [Volume fraction] 26.5 % Low 35.0-47.0 [facility] Comment on above: Order Comment: Campu s: M What is the source? URINE Performed By: #### M 150.50041, M150.19047 #### [facility] [address] [place] [address]3382 Hemoglobin (Bld) [Mass/Vol] 8.0 g/dL Low 11.5-15.5 [facility] Comment on above: Order Comment: Campu s: M What is the source? URINE Performed By: #### M 150.44293, M150.58460 #### [facility] [address] [place] [address] 51845 IMMATR GRAN ABS 0.10 K/CU MM Normal Less than 2 [facility] Comment on above: Order Comment: Campu s: M What is the source? URINE Performed By: #### M 150.41868, M150.84698 #### [facility] [address] [place] [address]287 IMMATURE GRAN % 1.0 % Normal Less than 2 [facility] Comment on above: Order Comment: Campu s: M What is the source? URINE Performed By: #### M 150.58142, M150.72853 #### [facility] [address] [place] [address]7827 Lymphocytes (Bld) [#/Vol] 1.30 K/CU MM Normal 0.9-4.4 [facility] Comment on above: Order Comment: Campu s: M What is the source? URINE Performed By: #### M 150.10250, M150.61174 #### [facility] [address] [place] [address] 82969 Lymphocytes/100 WBC (Bld) 13.6 % Low 20-40 [facility] Comment on above: Order Comment: Campu s: M What is the source? URINE Performed By: #### M 150.23910, M150.66038 #### [facility] [address] [place] [address]990 MCHC (RBC) [Mass/Vol] 30.2 g/dL Low 32.0-36.0 [facility] Comment on above: Order Comment: Campu s: M What is the source? URINE Performed By: #### M 150.43376, M150.59717 #### [facility] [address] [place] [address] 63569 MCV (RBC) [Entitic vol] 97.1 fL Normal 80.0-99.0 [facility] Comment on above: Order Comment: Campu s: M What is the source? URINE Performed By: #### M 150.92635, M150.76697 #### [facility] [address] [place], [place] [id number] MONO ABS 0.70 K/CU MM Normal 0.1-1.1 [facility] Comment on above: Order Comment: Campu s: M What is the source? URINE Performed By: #### M 150.92945, M150.80799 #### [facility] [address] [place] [address] 97863 Monocytes/100 WBC (Bld) 7.4 % Normal 2-10 M [facility] Comment on above: Order Comment: Campu s: M What is the source? URINE Performed By: #### M 150.04909, M150.71089 #### [facility] [address] [place] [address] 49782 NEUTROPHIL ABS 6.70 K/CU MM Normal 2.0-8.3 [facility] Comment on above: Order Comment: Campu s: M What is the source? URINE Performed By: #### M 150.28950, M150.59918 #### [facility] [address] [place] [address] Neutrophils/100 WBC (Bld) 73.2 % Normal 45-75 [facility] Comment on above: Order Comment: Campu s: M What is the source? URINE Performed By: #### M 150.04960, M150.89909 #### [facility] [address] [place] [address] Nucleated RBC/100 WBC (Bld) [Ratio] 0.0 % Normal Less than 1 [facility] Comment on above: Order Comment: Campu s: M What is the source? URINE Performed By: #### M 150.25028, M150.60375 #### [facility] [address] [place] [address] 36369 Platelet mean volume (Bld) [Entitic vol] 10.9 fL Normal 9.4-12.4 [facility] Comment on above: Order Comment: Campu s: M What is the source? URINE Performed By: #### M 150.40429, M150.31598 #### [facility] [address] [place] [address] 48144 Platelets (Bld) [#/Vol] 301 K/CU MM Normal 150-450 [facility] Comment on above: Order Comment: Campu s: M What is the source? URINE Performed By: #### M 150.66048, M150.08873 #### [facility] [address] [place] [address] 30551 RBC (Bld) [#/Vol] 2.73 M/CU MM Low 3.90-5.30 [facility] Comment on above: Order Comment: Campu s: M What is the source? URINE Performed By: #### M 150.94173, M150.41257 #### [facility] [place] [address] WBC (Bld) [#/Vol] 9.2 K/CUMM Normal 4.5-11.0 [facility] Comment on above: Order Comment: Campu s: M What is the source? URINE Performed By: #### M 150.52205, M150.41148 #### [facility] [address] [place] [address] CMPon 08-16-2020 Albumin [Mass/Vol] 1.9 g/dL Low 3.2-5.0 [facility] Comment on above: Order Comment: Campu s: M Performed By: #### L 200.86439 #### [facility] [address] [place] [address] Albumin/Globulin [Mass ratio] 0.5 {ratio} Low 0.8-2.0 [facility] Comment on above: Order Comment: Campu s: M Performed By: #### L 200.86298 #### [facility] [address] [place] [address] 78653 ALK PHOS 129 U/L High 45-117 [facility] Comment on above: Order Comment: Campu s: M Performed By: #### L 200.83983 #### [facility] [address] [place] [address] ALT [Catalytic activity/Vol] 22 U/L Normal 13-61 [facility] Comment on above: Order Comment: Campu s: M Result Comment: RESU LTS MAY BE FALSELY DEPRESSED AFTER THE ADMINISTRATION OF SULFASALAZINE AND/OR SULFAPYRIDINE. Performed By: #### L 200.74833 #### [facility] [address] [place] [address] Anion gap [Moles/Vol] 4 mmol/L Low 5-16 [facility] Comment on above: Order Comment: Campu s: M Performed By: #### L 200.98366 #### [facility] [address] [place] [address] BILI TOTAL 0.20 MG/DL Normal 0.2-1.0 [facility] Comment on above: Order Comment: Campu s: M Performed By: #### L 200.35317 #### [facility] [address] [place] [address] Calcium [Mass/Vol] 8.6 mg/dL Normal 8.5-10.5 [facility] Comment on above: Order Comment: Campu s: M Result Comment: NOTE NEW NORMAL RANGE DUE TO REAGENT CHANGE Performed By: #### L 200.49530 #### [facility] [address] [place] [address] Chloride [Moles/Vol] 98 mmol/L Normal 98-107 [facility] Comment on above: Order Comment: Campu s: M Performed By: #### L 200.56970 #### [facility] [place] [address] CO2 [Moles/Vol] 38.0 mmol/L High 21-32 [facility] Comment on above: Order Comment: Campu s: M Performed By: #### L 200.62638 #### [facility] [address] [place] [address] Creatinine [Mass/Vol] 0.61 mg/dL Normal 0.510-0.950 [facility] Comment on above: Order Comment: Campu s: M Result Comment: Geraldine ents receiving either N-Acetylcysteine (NAC) or Metamizole prior to venipuncture, may have falsely depressed results. Performed By: #### L 200.06966 #### [facility] [address] [place] [address] Globulin (S) [Mass/Vol] 3.8 g/dL Normal 2.2-4.2 [facility] Comment on above: Order Comment: Campu s: M Performed By: #### L 200.93942 #### [facility] [address] [place] [address] Glucose [Mass/Vol] 158 mg/dL High 70-100 [facility] Comment on above: Order Comment: Campu s: M Result Comment: 70-1 00- Normal Fasting; 100-125 Impaired Fasting; greater than 126 on more than one result- Diabetes. ADA guidelines. Results may be falsely elevated after the administration of Sulfapyridine. Results may be falsely depressed after the administration of Sulfasalazine. Performed By: #### L 200.27710 #### [facility] [place] [address] Potassium [Moles/Vol] 4.0 mmol/L Normal 3.5-5.1 [facility] Comment on above: Order Comment: Campu s: M Performed By: #### L 200.64800 #### [facility] [address] [place] [address] Protein [Mass/Vol] 5.7 g/dL Low 6.0-8.5 [facility] Comment on above: Order Comment: Campu s: M Performed By: #### L 200.51034 #### [facility] [address] [place] [address] SGOT (AST) 25 U/L Normal 8-34 [facility] Comment on above: Order Comment: Campu s: M Result Comment: RESU LTS MAY BE FALSELY DEPRESSED AFTER THE ADMINISTRATION OF SULFASALAZINE AND/OR SULFAPYRIDINE. Performed By: #### L 200.64379 #### [facility] [address] [place] [address] Sodium [Moles/Vol] 139 mmol/L Normal 136-145 [facility] Comment on above: Order Comment: Campu s: M Performed By: #### L 200.66830 #### [facility] [address] [place] [address] Urea nitrogen [Mass/Vol] 11 mg/dL Normal 7-26 [facility] Comment on above: Order Comment: Campu s: M Performed By: #### L 200.01926 #### [facility] [address] [place] [address] Urea nitrogen/Creatinine [Mass ratio] 18 mg/mg Normal 15-24 [facility] Comment on above: Order Comment: Campu s: M Performed By: #### L 200.87586 #### [facility] [address] [place] [address] GFR ESTon 08-16-2020 IF AMER Greater than 60 Normal [facility] Comment on above: Order Comment: Campu s: M Performed By: #### L 200.41015 #### [facility] [address] [place] [address] IF non-AFR AMER Greater than 60 Normal [facility] Comment on above: Order Comment: Campu s: M Performed By: #### L 200.83918 #### [facility] [address] [place] [address] GLUCOSE METERon 08-16-2020 Glucose [Mass/Vol] 128 mg/dL High 85-125 [facility] Glucose [Mass/Vol] 129 mg/dL High 85-125 [facility] Glucose [Mass/Vol] 168 mg/dL High 85-125 [facility] PR[facility] Patient Name: ANDRE BLANCA [address] [facility] [address] Date of : [address] [place] [address] Unit Number: [id number] Progress Note-Hospitalist Patient Status: ADM IN Attending Doctor: Marta Horvath DO Service Date: 08/16/20 0916 Chief Complaint Chief Complaint Syncope Subjective S: (2 ROS minimum) Not seen, chart reviewed. Objective (ROS) Nursing Vitals Vital Signs (Last) Result Date Time Pulse Ox 90 08/16 0818 O2 Delivery NASAL CANNULA 08/16 0818 O2 Flow Rate 6L 08/16 0818 B/P 124/58 08/16 0810 B/P Mean 84 08/16 0810 Temp 98.6 08/16 0810 Pulse 86 08/16 0810 Resp 24 08/16 0810 Diagnostic Data: Lab 24hr (CBC/BMP Luz) 08/16/20 0536: [Embedded Image Not Available] Anion Gap 4 L, Est GFR ( Amer) Greater than 60, Est GFR (Non-Af Amer) Greater than 60, BUN/Creatinine Ratio 18, Glucose 158 H, Total Calcium 8.6, Total Bilirubin 0.20, AST 25, ALT 22, Alkaline Phosphatase 129 H, Serum Total Protein 5.7 L, Albumin 1.9 L, Globulin 3.8, Albumin/Globulin Ratio 0.5 L, RBC 2.73 L, MCV 97.1, MCHC 30.2 L, RDW 15.8 H, MPV 10.9 , Immature Gran % (Auto) 1.0, Abs Immat Gran (auto) 0.10, Seg Neutrophils % 73.2, Lymphocytes % 13.6 L, Monocytes % 7.4, Eosinophils % 4.1, Basophils % 0.7, Neutrophils # 6.70, Lymphocytes # 1.30, Monocytes # 0.70, Eosinophils # 0.40, Basophils # 0.10, Nucleated RBCs 0.0 08/16/20 0500: Specimen Type Cancelled, Sample Site Cancelled, Patient Temperature Cancelled, pH Cancelled, pO2 Cancelled, Doug Test Cancelled, Lactate Cancelled, Patient Equipment Cancelled, Ionized Calcium Cancelled Assessment and Plan Conclusion 1. Acute respiratory failure with hypoxia Ongoing care per critical care team. Accu-Cheks every 6 hours while on continuous tube feeds with SSI coverage. On Sat 6:59p Aug 15, 2020 TILA GUAN wrote Patient still requiring high flow oxygen. Receiving tube feeds and an NG tube. Has IV access right upper extremity hemoglobin has been slowly trending down (7.6). Renal function normal Blood sugars 170-180's. Patient denies a history of diabetes mellitus. Will place on a sliding scale of insulin. ST, PT and OT involved. Will need SNF at discharge. Disclaimer This dictation was created using voice recognition software. Phonetic and/or minor grammatical errors may exist. eSign Date and Time Tila Guan MD Verified/Reviewed by 08/16/[address] [facility] Progress Note-Hospitalist Normal [facility] [place] PROGKATARINAStacey 08-16-2020 PROG.[facility] Patient Name: ANDRE BLANCA [address] Date of : [address] [place] [address] Unit Number: [id number] Progress Note-Adjuster And Inspector Patient Status: ADM IN Attending Doctor: Marta Horvath DO Service Date: 08/16/20 0816 Progress Note-Adjuster And Inspector Subjective Subjective: Attempts to to wean high flow oxygen. Patient currently on 6 L 8788%. Patient is up in chair. Patient having loose stools, currently on stool softener. Patient answering some questions about self. Objective Vital Signs: Vital Signs (Last) Result Date Time Pulse Ox 88 08/16 0810 B/P 124/58 08/16 0810 B/P Mean 84 08/16 0810 O2 Delivery NASAL CANNULA 08/16 0810 O2 Flow Rate 6L 08/16 0810 Temp 98.6 08/16 0810 Pulse 86 08/16 0810 Resp 24 08/16 0810 IandO 24 Hour Summary 08/16 0000 Intake Total 516 Output Total 3701 Balance -3185 Intake, Tube 516 Feeding Output, Stool 1 Output, Urine 3700 Patient 245 lb Weight Exam: General: Arousable answering questions about self. Heart: RRR,nl s1/s2 HEENT: NG in place. Lungs: Course BS bilaterally R > L; Abdomen: Soft, nt, nd, + BS, obese Extremities: No LE edema Neurologic: Answering questions about self, moving extremities x4, psychiatric agitation seems better Medications: Medications Current Sig/Antonella Start time Last Medication Dose Route Stop Time Status Admin Acetaminophen 500 MG Q6HPRN PRN 08/04 1930 AC 08/13 (TYLENOL ORAL LIQ) TUBE 1247 Albuterol Sulfate 2.5 MG Q6HPRN PRN 07/28 0030 AC (VENTOLIN/PROVENTIL INH 2.5MG/3ML INH.NEB) Albuterol/Ipratropium 3 ML Q4HRT 08/04 2030 AC 08/16 (DUONEB 0.5-3 MG/3 INH 0749 ML INH.NEB) Albuterol/Ipratropium 3 ML Q2HPRN PRN 07/28 0100 AC (DUONEB 0.5-3 MG/3 INH ML INH.NEB) Alteplase, 0.5 MG ONCALL PRN 08/16 0530 AC Recombinant IVF (ACTIVASE CATH CLEARANCE D.SYR) Sterile Water 2 ML (Sterile water for INJECTION) Alteplase, 0.5 MG ONCALL PRN 08/16 0530 AC Recombinant IVF (ACTIVASE CATH CLEARANCE D.SYR) Sterile Water 2 ML (Sterile water for INJECTION) Budesonide 0.5 MG BID 08/04 2100 AC 08/16 (PULMOCORT 0.5MG/2ML INH 0749 INH.NEB) Buspirone HCl 10 MG TIDWM 08/12 1200 AC 08/15 (BUSPAR TAB) TUBE 1753 Carbamazepine 200 MG TIDWM 08/05 0800 AC 08/15 (TEGRETOL TAB) TUBE 1753 Clopidogrel Bisulfate 75 MG QDAY 08/05 0900 AC 08/15 (PLAVIX TAB) TUBE 0925 Dexmedetomidine HCl 400 MCG TITRATE(SEE SHAUNA VFS) 08/07 1330 AC 08/12 (PRECEDEX VIAL) IV 0614 Sodium Chloride 96 ML (Sodium Chloride 0.9%) Enoxaparin Sodium 40 MG QDAY 07/28 0900 AC 08/15 (LOVENOX D.SYR) SC 0926 Esomeprazole 40 MG BIDAC 08/05 0700 AC 08/16 Magnesium TUBE 0531 (NEXIUM CAP (TXI)) Fluoxetine HCl 20 MG QDAY 08/05 0900 AC 08/15 (PROZAC CAP) TUBE 0925 Guaifenesin 10 ML TID 08/11 1400 AC 08/15 (ROBITUSSIN 200MG/10 TUBE 2050 ML ORAL LIQ) Haloperidol Lactate 2 MG Q4HPRN PRN 08/07 0900 AC 08/15 (HALDOL AMP) IV 205 Heparin Sodium See Dose Q24H 08/06 0900 AC 08/15 (Porcine) Insts (1) IV 1805 (HEP-LOCK *10*UNITS/ ML IV D.SYR.PF) Heparin Sodium See Dose PRN PRN 08/05 1500 AC (Porcine) Insts (2) IV (HEP-LOCK *10*UNITS/ ML IV D.SYR.PF) Levothyroxine Sodium 0.125 MG QDAYAC 08/09 0700 AC 08/16 (SYNTHROID TAB) PO 0531 Loperamide HCl 2 MG PRN PRN 08/04 1930 AC 08/14 (IMODIUM AD ORAL TUBE 0849 LIQUID UDC) Melatonin 10 MG QHS 08/09 2200 AC 08/15 (MELATONIN TAB) TUBE 2112 Menthol/Methyl 1 APPL BIDPRN PRN 07/28 0030 AC 08/15 Salicylate TP 2048 (MIHIR ALVAREZ T.CREAM) Ondansetron HCl 4 MG BIDPRN PRN 08/04 1930 AC (ZOFRAN TAB) TUBE Ondansetron HCl 4 MG Q6HPRN PRN 07/27 2100 AC 08/04 (ZOFRAN VIAL) IV 2126 Pravastatin Sodium 40 MG QHS 08/04 2200 AC 08/15 (PRAVACHOL TAB) TUBE 2049 Pregabalin 150 MG BID 08/04 2100 AC 08/15 (LYRICA CAP) TUBE 2112 Quetiapine Fumarate 100 MG QHS 08/08 2200 AC 08/15 (SEROQUEL TAB) TUBE 2115 Risperidone 3 MG BID 08/09 2100 AC 08/15 (RISPERDAL TAB) TUBE 2049 Sodium Chloride 4 ML QIDRT 08/14 1630 AC 08/16 (Sodium Chloride 3% INH 0749 INH.neb) Sodium Chloride See Dose Q24H 08/06 0900 AC 08/15 (Sodium Chloride Insts (3) IV 0927 0.9% FLUSH D.SYR) Sodium Chloride See Dose PRN PRN 08/05 1500 AC (Sodium Chloride Insts (4) IV 0.9% FLUSH D.SYR) Dose Instructions: (1)Heparin Sodium (Porcine) (HEP-LOCK *10*UNITS/ML IV D.SYR.PF): 50-200 UNITS (2)Heparin Sodium (Porcine) (HEP-LOCK *10*UNITS/ML IV D.SYR.PF): 50-200 UNITS (3)Sodium Chloride (Sodium Chloride 0.9% FLUSH D.SYR): 10-40 ML (4)Sodium Chloride (Sodium Chloride 0.9% FLUSH D.SYR): 10-40 ML Radiology Impressions: Recent Impressions (48H) RADIOLOGY - ABDOMEN OR KUB 08/14 1731 Report Impression - Status: SIGNED Entered: 08/14/2020 0114 IMPRESSION: The tip of the OG tube is in the mid to distal stomach. Impression By: JASON PATIÑO M.D. Lab Results: Lab 24hr (CBC/BMP Luz) 08/16/20 0536: [Embedded Image Not Available] Anion Gap 4 L, Est GFR ( Amer) Greater than 60, Est GFR (Non-Af Amer) Greater than 60, BUN/Creatinine Ratio 18, Glucose 158 H, Total Calcium 8.6, Total Bilirubin 0.20, AST 25, ALT 22, Alkaline Phosphatase 129 H, Serum Total Protein 5.7 L, Albumin 1.9 L, Globulin 3.8, Albumin/Globulin Ratio 0.5 L, RBC 2.73 L, MCV 97.1, MCHC 30.2 L, RDW 15.8 H, MPV 10.9 , Immature Gran % (Auto) 1.0, Abs Immat Gran (auto) 0.10, Seg Neutrophils % 73.2, Lymphocytes % 13.6 L, Monocytes % 7.4, Eosinophils % 4.1, Basophils % 0.7, Neutrophils # 6.70, Lymphocytes # 1.30, Monocytes # 0.70, Eosinophils # 0.40, Basophils # 0.10, Nucleated RBCs 0.0 08/16/20 0500: Specimen Type Cancelled, Sample Site Cancelled, Patient Temperature Cancelled, pH Cancelled, pO2 Cancelled, Doug Test Cancelled, Lactate Cancelled, Patient Equipment Cancelled, Ionized Calcium Cancelled Assessment/Plan Assessment/Problem List: 1. Acute hypoxemic respiratory failure 70 y/o with PMHx of COPD, HFpEF, CVA, and Former Tobacco Abuse presented to [facility] emergency department on 07/27 secondary to Syncope and was admitted to telemetry. Our service was consulted on 08/04 secondary to Worsening Hypoxemia requiring HFNC. She is being transferred to the D-ICU. ASSESSMENT: - LLL Aspiration Pneumonia - Acute Hypoxemic Respiratory Failure 2/2 above - Nausea and Vomitting - Encephalopathy - TASHI 2/2 Dehydration - HFpEF (EF 60-65% per Echo 07/2020) - Tobacco Abuse, in Remission - Obesity - Hx of COPD (no PFTs on file) - Hx of CVA -History of multiple falls -History of psychiatric illness PLAN: * Currently oxygenating 6 L nasal cannula, titration as tolerated. Continue to wean with goal > SpO2 88% * CXR showed bilateral airspace disease left greater than right. Chest x-ray this morning 08/14/2020 is improving. * Weaned off of Precedex. Patient with long history of psychiatric illness. Psychiatry help appreciated. * No documented fevers. Mild leukocytosis. Urine Ag/SARS-CoV-2 negative. * Finished IV Unasyn (Day #7) for aspiration pneumonia, watch off antibiotics. Watch symptoms. * Abdominal X-ray ==> neg for ileus/obstruction, NG tube in for feeds. Will need speech evaluation * c/w TFs , started on free water for (hypernatremia) increase to 250cc q4H, hyponatremia improving. Speech evaluation so NG can be removed. * Continue scheduled and PRN Duonebs. Add Budesonide. Resume home Symbicort upon discharge * Continue Incentive Spirometry. Add Acapella Flutter Valve and Hypertonic Saline Nebs for proper pulmonary toilet; add guaifenesin * improved renal function w fluids, normalized by most recent testing. * Replace electrolytes. 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 Patient spent time at the [facility] according to son, that is the facility that she met her . * History of multiple falls in the past. * F/E/N: HL fluids/replete lytes as needed /c/w TFs * GI/DVT Prophylaxis: PO nexium/Lovenox * CODE STATUS: DNR Comfort Care arrest, discussed with son Giana Blanca, area code [phone]. Did also discuss if patient is functionally declining, consider changing CODE STATUS to comfort only. Patient is requiring higher oxygen than yesterday. Will watch carefully with full medical therapy. Patient son was updated on 08/11/2020. Please see orders. Total care time 37 minutes Patient continues to do well, possible transfer to floor tomorrow. Disclaimer This dictation was created using voice recognition software. Phonetic and/or minor grammatical errors may exist. eSign Date and Time Jayesh Loera MD Verified/Reviewed by 08/16/20 0819 [facility] Progress Note-Adjuster And Inspector [facility] BMPon 08-15-2020 Anion gap [Moles/Vol] 3 mmol/L Low 5-16 [facility] Comment on above: Order Comment: Campu s: M Performed By: #### L 500.71069, L500.92667, L500.95309 ####[facility] [id number] [place], [place] [address]Xe# [phone] Calcium [Mass/Vol] 8.1 mg/dL Low 8.5-10.5 [facility] Comment on above: Order Comment: Campu s: M Result Comment: NOTE NEW NORMAL RANGE DUE TO REAGENT CHANGE Performed By: #### L 500.20563, L500.01679, L500.62681 ####[facility] [id number] [place], [place] [address]Av# [phone] Chloride [Moles/Vol] 99 mmol/L Normal 98-107 [facility] Comment on above: Order Comment: Campu s: M Performed By: #### L 500.52244, L500.47914, L500.31764 ####[facility] [id number] [place], [place] [address]Vv# [phone] CO2 [Moles/Vol] 40.0 mmol/L High 21-32 [facility] Comment on above: Order Comment: Campu s: M Performed By: #### L 500.34615, L500.44294, L500.77989 ####[facility] [id number] [place], [place] [address]Az# [phone] Creatinine [Mass/Vol] 0.62 mg/dL Normal 0.510-0.950 [facility] Comment on above: Order Comment: Campu s: M Result Comment: Geraldine ents receiving either N-Acetylcysteine (NAC) or Metamizole prior to venipuncture, may have falsely depressed results. Performed By: #### L 500.48255, L500.61884, L500.07736 ####[facility] [id number] [place], [place] [address]Op# [phone] Glucose [Mass/Vol] 177 mg/dL High 70-100 [facility] Comment on above: Order Comment: Campu s: M Result Comment: 70-1 00- Normal Fasting; 100-125 Impaired Fasting; greater than 126 on more than one result- Diabetes. ADA guidelines. Results may be falsely elevated after the administration of Sulfapyridine. Results may be falsely depressed after the administration of Sulfasalazine. Performed By: #### L 500.41938, L500.71908, L500.88740 ####[facility] [id number] [place], [place] [address]Pw# [phone] Potassium [Moles/Vol] 4.0 mmol/L Normal 3.5-5.1 [facility] Comment on above: Order Comment: Campu s: M Performed By: #### L 500.47906, L500.02704, L500.63772 ####[facility] [id number] [place], [place] [address]Ks# [phone] Sodium [Moles/Vol] 139 mmol/L Normal 136-145 [facility] Comment on above: Order Comment: Campu s: M Performed By: #### L 500.40976, L500.51763, L500.89804 ####[facility] [id number] [place], [place] [address]Pv# [phone] Urea nitrogen [Mass/Vol] 12 mg/dL Normal 7-26 [facility] Comment on above: Order Comment: Campu s: M Performed By: #### L 500.34032, L500.82474, L500.47954 ####[facility] [id number] [place], [place] [address]Ff# [phone] Urea nitrogen/Creatinine [Mass ratio] 19 mg/mg Normal 15-24 [facility] Comment on above: Order Comment: Campu s: M Performed By: #### L 500.36782, L500.79996, L500.04439 ####[facility] [id number] [place], [place] [address]Ct# [phone] CBC W/DIFFon 08-15-2020 BASO ABS 0.00 K/CU MM Normal 0-0.2 [facility] Comment on above: Order Comment: Campu s: M What is the source? URINE Performed By: #### M 150.12152, M150.38637 #### [facility]ORY [address] [place] [address] Basophils/100 WBC (Bld) 0.4 % Normal 0-2 M [facility] Comment on above: Order Comment: Campu s: M What is the source? URINE Performed By: #### M 150.43193, M150.76811 #### [facility] [address] [place] [address] EOS ABS 0.30 K/CU MM Normal 0-0.5 [facility] Comment on above: Order Comment: Campu s: M What is the source? URINE Performed By: #### M 150.43345, M150.07106 #### [facility] [address] [place] [address] Eosinophils/100 WBC (Bld) 3.0 % Normal 0-5 [facility] Comment on above: Order Comment: Campu s: M What is the source? URINE Performed By: #### M 150.60979, M150.71828 #### [facility] [address] [place] [address] Erythrocyte distribution width (RBC) [Ratio] 15.6 % High 11-14.5 [facility] Comment on above: Order Comment: Campu s: M What is the source? URINE Performed By: #### M 150.74196, M150.89939 #### [facility] [address] [place] [address] Hematocrit (Bld) [Volume fraction] 25.2 % Low 35.0-47.0 [facility] Comment on above: Order Comment: Campu s: M What is the source? URINE Performed By: #### M 150.44734, M150.87296 #### [facility] [address] [place] [address] 289[address] Hemoglobin (Bld) [Mass/Vol] 7.6 g/dL Low 11.5-15.5 [facility] Comment on above: Order Comment: Campu s: M What is the source? URINE Performed By: #### M 150.78435, M150.43279 #### [facility] [address] [place] [address] IMMATR GRAN ABS 0.10 K/CU MM Normal Less than 2 [facility] Comment on above: Order Comment: Campu s: M What is the source? URINE Performed By: #### M 150.52724, M150.60669 #### [facility] [address] [place] [address] IMMATURE GRAN % 1.3 % Normal Less than 2 [facility] Comment on above: Order Comment: Campu s: M What is the source? URINE Performed By: #### M 150.66623, M150.40552 #### [facility] [address] [place] [address] Lymphocytes (Bld) [#/Vol] 0.90 K/CU MM Normal 0.9-4.4 [facility] Comment on above: Order Comment: Campu s: M What is the source? URINE Performed By: #### M 150.17264, M150.40403 #### [facility] [address] [place] [address] Lymphocytes/100 WBC (Bld) 9.0 % Low 20-40 [facility] Comment on above: Order Comment: Campu s: M What is the source? URINE Performed By: #### M 150.93858, M150.45891 #### [facility] [address] [place] [address] MCHC (RBC) [Mass/Vol] 30.2 g/dL Low 32.0-36.0 [facility] Comment on above: Order Comment: Campu s: M What is the source? URINE Performed By: #### M 150.42795, M150.69442 #### [facility] [address] [place] [address] MCV (RBC) [Entitic vol] 97.3 fL Normal 80.0-99.0 M [facility] Comment on above: Order Comment: Campu s: M What is the source? URINE Performed By: #### M 150.69736, M150.44650 #### [facility] [address] [place] [address] MONO ABS 0.60 K/CU MM Normal 0.1-1.1 [facility] Comment on above: Order Comment: Campu s: M What is the source? URINE Performed By: #### M 150.46995, M150.36775 #### [facility] [place] [address] Monocytes/100 WBC (Bld) 5.7 % Normal 2-10 M [facility] Comment on above: Order Comment: Campu s: M What is the source? URINE Performed By: #### M 150.58080, M150.63925 #### [facility] [address] [place] [address] 65[address] NEUTROPHIL ABS 8.30 K/CU MM Normal 2.0-8.3 [facility] Comment on above: Order Comment: Campu s: M What is the source? URINE Performed By: #### M 150.65665, M150.22880 #### [facility] [address] [place] [address] 16842 Neutrophils/100 WBC (Bld) 80.6 % High 45-75 [facility] Comment on above: Order Comment: Campu s: M What is the source? URINE Performed By: #### M 150.69310, M150.98147 #### [facility] [address] [place] [address] Nucleated RBC/100 WBC (Bld) [Ratio] 0.0 % Normal Less than 1 [facility] Comment on above: Order Comment: Campu s: M What is the source? URINE Performed By: #### M 150.49204, M150.75334 #### [facility] [place] [address] Platelet mean volume (Bld) [Entitic vol] 11.1 fL Normal 9.4-12.4 [facility] Comment on above: Order Comment: Campu s: M What is the source? URINE Performed By: #### M 150.43610, M150.38143 #### [facility] [address] [place] [address] Platelets (Bld) [#/Vol] 245 K/CU MM Normal 150-450 [facility] Comment on above: Order Comment: Campu s: M What is the source? URINE Performed By: #### M 150.23582, M150.74634 #### [facility] [address] [place] [address] RBC (Bld) [#/Vol] 2.59 M/CU MM Low 3.90-5.30 [facility] Comment on above: Order Comment: Campu s: M What is the source? URINE Performed By: #### M 150.54330, M150.21354 #### [facility] [address] [place] [address] WBC (Bld) [#/Vol] 10.2 K/CUMM Normal 4.5-11.0 [facility] Comment on above: Order Comment: Campu s: M What is the source? URINE Performed By: #### M 150.67018, M150.29147 #### [facility] [address] [place] [address] GFR ESTon 08-15-2020 IF AMER Greater than 60 Normal [facility] Comment on above: Order Comment: Campu s: M Performed By: #### L 500.17999, L500.54587, L500.23553 ####[facility] [id number] [place], [place] [address]Ef# [phone] IF non-AFR AMER Greater than 60 Normal [facility] Comment on above: Order Comment: Campu s: M Performed By: #### L 500.55642, L500.93021, L500.03929 ####[facility] [id number] [place], [place] [address]Xh# [phone] MAGNESIUMon 08-15-2020 Magnesium [Mass/Vol] 1.7 MG/CL Normal 1.6-2.6 [facility] Comment on above: Order Comment: Campu s: M Performed By: #### L 500.60408, L500.33886, L500.72061 ####[facility] [id number] [place], [place] [address]Dr# [phone] PROG IMSon 08-15-2020 PROG [facility] Patient Name: ANDRE BLANCA [address] [facility] [address] Date of : [address] [place] [address] Unit Number: [id number] Progress Note-Hospitalist Patient Status: ADM IN Attending Doctor: Marta Horvath DO Service Date: 08/15/201852 Chief Complaint Chief Complaint Syncope Subjective S: (2 ROS minimum) Patient awake sitting in bed tries to answer questions. Seems to answer some correctly but then calls me her mom and thinks her children are in the corner of the room. Objective (ROS) Nursing Vitals Vital Signs (Last) Result Date Time Pulse Ox 94 08/15 1800 B/P 116/56 08/15 1800 B/P Mean 80 08/15 1800 O2 Delivery HIGH FLOW NC 08/15 1800 O2 Flow Rate 50 08/15 1800 Pulse 90 08/15 1800 Resp 20 08/15 1800 Temp 97.9 08/15 1600 Physical Exam Neurological / Psychiatric Alert, Orientation X1 Respiratory Clear Lungs Cardiovascular Heart RRR, No M / R / G Gastrointestinal Normal Bowel Sounds Skin Warm / Dry Assessment and Plan Conclusion 1. Acute respiratory failure with hypoxia Patient still requiring high flow oxygen. Receiving tube feeds and an NG tube. Has IV access right upper extremity hemoglobin has been slowly trending down (7.6). Renal function normal Blood sugars 170-180's. Patient denies a history of diabetes mellitus. Will place on a sliding scale of insulin. ST, PT and OT involved. Will need SNF at discharge. Disclaimer This dictation was created using voice recognition software. Phonetic and/or minor grammatical errors may exist. eSign Date and Time Tila Guan MD Verified/Reviewed by 08/15/20 5619 [facility] Progress Note-Hospitalist [facility] PR[facility]INTENon [facility]-15-[facility] Name: ANDRE BLANCA [address] [employer] [address] Date of : [address] [address] Unit Number: [id number] Progress Note-Adjuster And Inspector Patient Status: ADM IN Attending Doctor: Marta Horvath DO Service Date: 08/15/20 0756 Progress Note-Adjuster And Inspector Subjective Subjective: Still requiring high flow oxygen at this time. Patient seems more oriented, answering questions about self. Per nursing staff patient got 8 hours of sleep last night. Objective Vital Signs: Vital Signs (Last) Result Date Time Pulse Ox 95 08/15 0742 O2 Delivery HIGH FLOW NC 08/15 0742 O2 Flow Rate 50 / 0742 B/P 132/61 / 0600 B/P Mean 88 / 0600 Temp 98.7 08/15 0600 Pulse 93 / 0600 Resp 22 08/15 0600 IandO 24 Hour Summary 08/15 0000 Intake Total 1056 Output Total 2503 Balance -1447 Intake, Tube 1056 Feeding Output, Stool 3 Output, Urine 2500 Patient 242 lb Weight Exam: General: Arousable answering questions about self. Heart: RRR,nl s1/s2 HEENT: NG in place. Lungs: Course BS bilaterally R > L; Abdomen: Soft, nt, nd, + BS, obese Extremities: No LE edema Neurologic: Answering questions about self, moving extremities x4, psychiatric agitation seems better Medications: Medications Current Sig/Antonella Start time Last Medication Dose Route Stop Time Status Admin Acetaminophen 500 MG Q6HPRN PRN 08/04 1930 AC 08/13 (TYLENOL ORAL LIQ) TUBE 1247 Albuterol Sulfate 2.5 MG Q6HPRN PRN 07/28 0030 AC (VENTOLIN/PROVENTIL INH 2.5MG/3ML INH.NEB) Albuterol/Ipratropium 3 ML Q4HRT 08/04 2030 AC 08/15 (DUONEB 0.5-3 MG/3 INH 0735 ML INH.NEB) Albuterol/Ipratropium 3 ML Q2HPRN PRN 07/28 0100 AC (DUONEB 0.5-3 MG/3 INH ML INH.NEB) Budesonide 0.5 MG BID 08/04 2100 AC 08/15 (PULMOCORT 0.5MG/2ML INH 0736 INH.NEB) Buspirone HCl 10 MG TIDWM 08/12 1200 AC 08/14 (BUSPAR TAB) TUBE 1608 Carbamazepine 200 MG TIDWM 08/05 0800 AC 08/14 (TEGRETOL TAB) TUBE 1608 Clopidogrel Bisulfate 75 MG QDAY 08/05 09 AC 08/14 (PLAVIX TAB) TUBE 0850 Dexmedetomidine HCl 400 MCG TITRATE(SEE SHAUNA VFS) 08/07 1330 AC 08/12 (PRECEDEX VIAL) IV 0614 Sodium Chloride 96 ML (Sodium Chloride 0.9%) Docusate Sodium 100 MG BID 08/11 1230 AC 08/12 (COLACE ORAL LIQ) TUBE 0851 Enoxaparin Sodium 40 MG QDAY 07/28 0900 AC 08/14 (LOVENOX D.SYR) SC 0848 Esomeprazole 40 MG BIDAC 08/05 0700 AC 08/15 Magnesium TUBE 0533 (NEXIUM CAP (TXI)) Fluoxetine HCl 20 MG QDAY 08/05 09 AC 08/14 (PROZAC CAP) TUBE 0849 Guaifenesin 10 ML TID 08/11 1400 AC 08/14 (ROBITUSSIN 200MG/10 TUBE 2029 ML ORAL LIQ) Haloperidol Lactate 2 MG Q4HPRN PRN 08/07 0900 AC 08/15 (HALDOL AMP) IV 0531 Heparin Sodium See Dose Q24H 08/06 0900 AC 08/14 (Porcine) Insts (1) IV 0848 (HEP-LOCK *10*UNITS/ ML IV D.SYR.PF) Heparin Sodium See Dose PRN PRN 08/05 1500 AC (Porcine) Insts (2) IV (HEP-LOCK *10*UNITS/ ML IV D.SYR.PF) Levothyroxine Sodium 0.125 MG QDAYAC 08/09 0700 AC 08/15 (SYNTHROID TAB) PO 0533 Loperamide HCl 2 MG PRN PRN 08/04 1930 AC 08/14 (IMODIUM AD ORAL TUBE 0849 LIQUID UDC) Melatonin 10 MG QHS 08/09 2200 AC 08/14 (MELATONIN TAB) TUBE 2027 Menthol/Methyl 1 APPL BIDPRN PRN 07/28 0030 AC 08/11 Salicylate TP 1126 (MIHIR ALVAREZ T.CREAM) Ondansetron HCl 4 MG BIDPRN PRN 08/04 193 AC (ZOFRAN TAB) TUBE Ondansetron HCl 4 MG Q6HPRN PRN 07/27 2100 AC 08/04 (ZOFRAN VIAL) IV 212 Polyethylene Glycol 17 GM QDAY 08/11 1200 AC 08/12 (MIRALAX PACKT) TUBE 0851 Pravastatin Sodium 40 MG QHS 08/04 220 AC 08/14 (PRAVACHOL TAB) TUBE 202 Pregabalin 150 MG BID 08/04 2100 AC 08/14 (LYRICA CAP) TUBE 202 Quetiapine Fumarate 100 MG QHS 08/08 2200 AC 08/14 (SEROQUEL TAB) TUBE 211 Risperidone 3 MG BID 08/09 2100 AC 08/14 (RISPERDAL TAB) TUBE 202 Sodium Chloride 4 ML QIDRT 08/14 1630 AC 08/15 (Sodium Chloride 3% INH 0736 INH.neb) Sodium Chloride See Dose Q24H 08/06 0900 AC 08/14 (Sodium Chloride Insts (3) IV 0849 0.9% FLUSH D.SYR) Sodium Chloride See Dose PRN PRN 08/05 1500 AC (Sodium Chloride Insts (4) IV 0.9% FLUSH D.SYR) Dose Instructions: (1)Heparin Sodium (Porcine) (HEP-LOCK *10*UNITS/ML IV D.SYR.PF): 50-200 UNITS (2)Heparin Sodium (Porcine) (HEP-LOCK *10*UNITS/ML IV D.SYR.PF): 50-200 UNITS (3)Sodium Chloride (Sodium Chloride 0.9% FLUSH D.SYR): 10-40 ML (4)Sodium Chloride (Sodium Chloride 0.9% FLUSH D.SYR): 10-40 ML Radiology Impressions: Recent Impressions (48H) RADIOLOGY - PORTABLE CHEST 08/14 0356 Report Impression - Status: SIGNED Entered: 08/14/2020 0742 IMPRESSION: Bilateral interstitial and alveolar infiltrates/edema similar to the previous study. Impression By: JASON PATIÑO M.D. RADIOLOGY - ABDOMEN OR KUB 08/14 1731 Report Impression - Status: SIGNED Entered: 08/14/2020 1747 IMPRESSION: The tip of the OG tube is in the mid to distal stomach. Impression By: JASON PATIÑO M.D. Assessment/Plan Assessment/Problem List: 1. Acute hypoxemic respiratory failure 70 y/o with PMHx of COPD, HFpEF, CVA, and Former Tobacco Abuse presented to [facility] emergency department on 07/27 secondary to Syncope and was admitted to telemetry. Our service was consulted on 08/04 secondary to Worsening Hypoxemia requiring HFNC. She is being transferred to the D-ICU. ASSESSMENT: - LLL Aspiration Pneumonia - Acute Hypoxemic Respiratory Failure 2/2 above - Nausea and Vomitting - Encephalopathy - TASHI 2/2 Dehydration - HFpEF (EF 60-65% per Echo 07/2020) - Tobacco Abuse, in Remission - Obesity - Hx of COPD (no PFTs on file) - Hx of CVA -History of multiple falls -History of psychiatric illness PLAN: * Currently oxygenating adequately on 50L/45% FiO2 via HFNC. Continue to wean with goal > SpO2 88% * CXR showed bilateral airspace disease left greater than right. Chest x-ray this morning 08/14/2020 is improving. * Weaned off of Precedex. Patient with long history of psychiatric illness. Psychiatry help appreciated. * No documented fevers. Mild leukocytosis. Urine Ag/SARS-CoV-2 negative. * Finished IV Unasyn (Day #7) for aspiration pneumonia, watch off antibiotics. Watch symptoms. * Abdominal X-ray ==> neg for ileus/obstruction, NG tube in for feeds. Will need speech evaluation * c/w TFs , started on free water for (hypernatremia) increase to 250cc q4H, hyponatremia improving. Speech evaluation so NG can be removed. * Continue scheduled and PRN Duonebs. Add Budesonide. Resume home Symbicort upon discharge * Continue Incentive Spirometry. Add Acapella Flutter Valve and Hypertonic Saline Nebs for proper pulmonary toilet; add guaifenesin * improved renal function w fluids, normalized by most recent testing. * Replace electrolytes. 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 Patient spent time at the [facility] according to son, that is the facility that she met her . * History of multiple falls in the past. * F/E/N: HL fluids/replete lytes as needed /c/w TFs * GI/DVT Prophylaxis: PO nexium/Lovenox * CODE STATUS: DNR Comfort Care arrest, discussed with son Giana Blanca, area code . Did also discuss if patient is functionally declining, consider changing CODE STATUS to comfort only. Patient is requiring higher oxygen than yesterday. Will watch carefully with full medical therapy. Patient son was updated on 08/11/2020. Please see orders. Total care time 34 minutes Disclaimer This dictation was created using voice recognition software. Phonetic and/or minor grammatical errors may exist. eSign Date and Time Jayesh Loera MD Verified/Reviewed by 08/15/20 0800 [facility] Progress Note-Adjuster And Inspector [facility] 08-15-2020 CHIROPRACTIC ASSISTANT Assessment Report Normal [facility] Speech/Language Pathology Inpatient Clinical Swallow Evaluation Medical Diagnosis: Acute hypoxemic respiratory failure Therapy Diagnosis: Rank Code Description 1 R13.10 Dysphagia, unspecified Demographics: Age: 70Y Gender: Female Primary Language: Estonian Preferred Language: Estonian Referring Service/Team: Medicine Past Medical History: PMHx: Chronic COPD, Hx CVA prior without deficits but prior had L sided weakness, Hypothyroidism, Hx Migraines, Bipolar Disorder, IBS, Obesity. Past Surgical History Hysterectomy, appendectomy, right upper extremity surgery, cholecystectomy. (per medical charting) History of Present Illness: Date of Onset: 08/04/2020 Additional Information: HandP on date of admission: Chief Complaint/Present Illness: Syncope History of Present Illness 70-year-old female, primary care through [facility], past medical history CVA, hypothyroidism, COPD not on home oxygen, recurrent syncopal episodes in the past that she states have been worked up by her physicians at the [facility], testing done at the [facility] and here at [facility], concluding that she has "low blood pressure". She does not feel like her syncopal episode correlate to any activity. Today she had a syncopal episode when she was standing up to go use the restroom. Over the last 5 to 6 days she has developed viral symptoms of diarrhea, shortness of breath, decreased appetite, headache, sore throat, myalgias. ED vitals temperature 98.1, heart rate 91, respiratory rate 22, blood pressure 127/66, SPO2 95% room air. However she did become hypoxic in the emergency department with SPO2 of 85% on room air. When I see the patient she is on 2 L of oxygen with SPO2 94%. ED work-up EKG which I personally reviewed shows normal sinus rhythm with right bundle branch block which is pre-existing. Chest x-ray shows a left lower lobe infiltrate. I personally reviewed the chest x-ray, there is no obvious lobular infiltrate. I saw the patient in ER room 37, she sitting up in bed, she is the historian and [facility] PATIENT NAME: ANDRE BLANCA [facility] Dr. Andrea MEDICAL REC #: [id number] [place] [address] ADMIT DATE: 07/27/20 SERVICE DATE: 08/15/20 Speech-Language Assessment Report ATTENDING DAMIAN: Marta Horvath DO seems to be reliable historian. 08/04/2020: recent chest xray indicates aspiration left lower lung (per medical charting) *New order for swallow evaluation 08-15-20 Date of Admission: 07/27/2020 5:37:00 PM Medications and Allergies: Significant rehabilitation considerations: .Allergies: ACETAMINOPHEN, ASPIRIN, BUTORPHANOL, butorphanol tartrate, hydrocodone bit, hydromorphone HCl, IBUPROFEN, OXYCODONE, oxycodone HCl, prochlorperazine edisylate, prochlorperazine maleate, SALICYLAMIDE, SULFA (SULFONAMIDE ANTIBIOTICS), SUMATRIPTAN, XANTHINES Please see pt's chart for list of current medications Rehabilitation Precautions/Restrictio ns: NG tube, restraints, high flow NC, SUBJECTIVE Premorbid Swallowing Function/Diet Textures: Patient with confusion, but did report history of dysphagia. Current Diet Textures: NPO, NG Patient/Caregiver Goals: Patient's functional goals: crackers Pain: Patient currently without complaints of pain. Home Environment:Unknown Social History:Unknown OBJECTIVE General Observations: Patient sitting up in chair. Patient awake and alert. Patient verbal and confused and talkative, but pleasant. Dentition: Top dentition present. Patient reported does not have bottom dentition. Condition of Oral Mucosa:WF Cognitive Status: Impaired; confusion noted. Able to follow simple directions Respiratory Support: High flow O2 Oral Motor Exam: Laryngeal elevation was inconsistent (mildly decreased at times). Patient with fair-good lingual strength. Consistencies Tested: Nursing attempting to fix oxygen tubing upon my arrival, then respiratory arrived to fix tubing. Patient with SPO2 readings variable throughout session. Nursing reported patient typically does not get above 91 for readings. Patient with mildly wet vocal quality noted x1 on secretions. When cued to clear and swallow, patient with cough noted after swallowing secretions. Patient assessed with nectar thick liquids and puree. Patient with delayed cough noted x1 with nectar thick. Patient with mild wetness noted x1 with nectar thick and puree. Patient with multiple swallows and inconsistent laryngeal movement. Suspect pharyngeal residue. Patient at risk for aspiration/laryngeal penetration at this time. [facility] PATIENT NAME: ANDRE BLANCA [facility] Dr. Andrea MEDICAL REC #: [id number] [place] [address] ADMIT DATE: 07/27/20 SERVICE DATE: 08/15/20 Speech-Language Assessment Report ATTENDING PHY: Marta Horvath DO Compensatory Strategies:- Interventions: None provided today. Pain Reassessment: No pain at onset or during treatment, which does not warrant reassessment. Education: The patient's preferred learning method is: Explanation Barriers to Learning: Cognitive limitations Learning Needs: Swallowing. Education Provided: Diet texture recommendations. Audience: Patient. Mode: Explanation. Response: Needs reinforcement. ASSESSMENT Problem List: High flow O2, confusion, inconsitent laryngeal elevation, s/s aspiration. Strengths: Patient cooperative Rehabilitation Potential: Good Motivation/Commitment to Therapy: Good. Recommended Diet: NPO. Swallow Precautions/Recommenda tions:- Response to Evaluation: Patient tolerated session fair Equipment Needed: None. Treatment Goals: Time frame to achieve treatment goal(s): 2 weeks 1. Patient will tolerate pureed diet with nectar thick liquids without overt s/s aspiration. PLAN Treatment Frequency, Duration and Interventions: Speech/Language Pathology services recommended for 5 times per week for 2 weeks Speech/Language Pathology treatment is to include: Reassessment of swallowing function; oral-pharyngeal program as appropriate, possible MBS pending patient progress; pt education Recommended Speech/Language Pathology Therapy Follow Up: Upon acute care discharge, the following is currently recommended: Inpatient Speech Language Pathology LESS THAN 60 minutes/day Recommended Consults: None currently. Development of Plan of Care: Patient participated in plan of care development today. (as able) If there are any questions regarding this service, please contact the Acute Therapy Department at extension [phone] Communication to Nursing: Explained results/recommendation s to nursing after [facility] PATIENT NAME: ANDRE BLANCA [facility] Dr. Andrea MEDICAL REC #: [id number] [place] [address] ADMIT DATE: 07/27/20 SERVICE DATE: 08/15/20 Speech-Language Assessment Report ATTENDING PHY: Kian,Marta M DO session. Location of Patient at End of Therapy Session: In chair, call light within reach restraints in place Services: Total Billed: 45 minutes (Timed: 0, Untimed: 45) 45.00 Untimed: [11879] BDSIDE SWALLOW EVAL 0.00 Untimed: [] Speech Treatment ORDER 0.00 Untimed: [] SPEECH THERAPY CONSULT Signed by: LIZABETH Taylor 08/15/2020 13:35:38 [facility] PATIENT NAME: ANDRE BLANCA [facility] Dr. Andrea MEDICAL REC #: [id number] [place] [address] ADMIT DATE: 07/27/20 SERVICE DATE: 08/15/20 Speech-Language Assessment Report ATTENDING PHY: Marta Horvath DO Normal [facility] BMPon 08-14-2020 Anion gap [Moles/Vol] 3 mmol/L Low 5-16 [facility] Comment on above: Order Comment: Campu s: M Performed By: #### L 500.26458, L500.98644, L500.83228 ####[facility] [id number] [place], [place] [address]Xl# [phone] Calcium [Mass/Vol] 8.3 mg/dL Low 8.5-10.5 [facility] Comment on above: Order Comment: Campu s: M Result Comment: NOTE NEW NORMAL RANGE DUE TO REAGENT CHANGE Performed By: #### L 500.75054, L500.36767, L500.53578 ####[facility] [id number] [place], [place] [address]Fn# [phone] Chloride [Moles/Vol] 99 mmol/L Normal 98-107 [facility] Comment on above: Order Comment: Campu s: M Performed By: #### L 500.60207, L500.17781, L500.06995 ####[facility] [id number] [place], [place] [address]Bc# [phone] CO2 [Moles/Vol] 38.0 mmol/L High 21-32 [facility] Comment on above: Order Comment: Maciel s: M Performed By: #### L 500.96710, L500.69537, L500.83087 ####[facility] [id number] [place], [place] [address]Eu# [phone] Creatinine [Mass/Vol] 0.61 mg/dL Normal 0.510-0.950 [facility] Comment on above: Order Comment: Maciel s: M Result Comment: Geraldine ents receiving either N-Acetylcysteine (NAC) or Metamizole prior to venipuncture, may have falsely depressed results. Performed By: #### L 500.53992, L500.63436, L500.50555 ####[facility] [id number] [place], [place] [address]Tc# [phone] Glucose [Mass/Vol] 171 mg/dL High 70-100 [facility] Comment on above: Order Comment: Maciel s: M Result Comment: 70-1 00- Normal Fasting; 100-125 Impaired Fasting; greater than 126 on more than one result- Diabetes. ADA guidelines. Results may be falsely elevated after the administration of Sulfapyridine. Results may be falsely depressed after the administration of Sulfasalazine. Performed By: #### L 500.45467, L500.31661, L500.43800 ####[facility] [id number] [place], [place] [address]Tc# [phone] Potassium [Moles/Vol] 4.2 mmol/L Normal 3.5-5.1 [facility] Comment on above: Order Comment: Maciel s: M Performed By: #### L 500.76909, L500.31406, L500.60564 ####[facility] [id number] [place], [place] [address]Yz# [phone] Sodium [Moles/Vol] 139 mmol/L Normal 136-145 [facility] Comment on above: Order Comment: Campu s: M Performed By: #### L 500.39097, L500.08029, L500.19418 ####[facility] [id number] [place], [place] [address]Xu# [phone] Urea nitrogen [Mass/Vol] 11 mg/dL Normal 7-26 [facility] Comment on above: Order Comment: Campu s: M Performed By: #### L 500.55259, L500.70919, L500.03668 ####[facility] [id number] [place], [place] [address]Qo# [phone] Urea nitrogen/Creatinine [Mass ratio] 18 mg/mg Normal 15-24 [facility] Comment on above: Order Comment: Campu s: M Performed By: #### L 500.85172, L500.87959, L500.16986 ####[facility] [id number] [place] [address]Wf# [phone] CBC W/DIFFon 08-14-2020 BASO ABS 0.10 K/CU MM Normal 0-0.2 [facility] Comment on above: Order Comment: Campu s: M Performed By: #### L 200.99822 ####[facility] [id number] [place] [address]Wn# [phone] Basophils/100 WBC (Bld) 0.4 % Normal 0-2 M [facility] Comment on above: Order Comment: Campu s: M Performed By: #### L 200.98169 ####[facility] [id number] [place] [address]Tg# [phone] EOS ABS 0.40 K/CU MM Normal 0-0.5 [facility] Comment on above: Order Comment: Campu s: M Performed By: #### L 200.72132 ####[facility] [id number] [place] [address]Zn# [phone] Eosinophils/100 WBC (Bld) 3.7 % Normal 0-5 [facility] Comment on above: Order Comment: Campu s: M Performed By: #### L 200.82858 ####[facility] [id number] [place], [place] [address]Uc# [phone] Erythrocyte distribution width (RBC) [Ratio] 15.9 % High 11-14.5 [facility] Comment on above: Order Comment: Campu s: M Performed By: #### L 200.09276 ####[facility] [id number] [place] [address]Ac# [phone] Hematocrit (Bld) [Volume fraction] 27.9 % Low 35.0-47.0 [facility] Comment on above: Order Comment: Campu s: M Performed By: #### L 200.39971 ####[address] [address]Uo# [phone] Hemoglobin (Bld) [Mass/Vol] 8.4 g/dL Low 11.5-15.5 [facility] Comment on above: Order Comment: Campu s: M Performed By: #### L 200.03750 ####[facility] [id number] [place], [place] [address]Ph# [phone] IMMATR GRAN ABS 0.20 K/CU MM Normal Less than 2 [facility] Comment on above: Order Comment: Campu s: M Performed By: #### L 200.66013 ####[facility] [id number] [place], [place] [address]Ph# [phone] IMMATURE GRAN % 2.1 % Normal Less than 2 [facility] Comment on above: Order Comment: Campu s: M Performed By: #### L 200.85197 ####[facility] [id number] [place] [address]Sr# [phone] Lymphocytes (Bld) [#/Vol] 1.20 K/CU MM Normal 0.9-4.4 [facility] Comment on above: Order Comment: Campu s: M Performed By: #### L 200.22311 ####[facility] [id number] [place], [place] [address]Cg# [phone] Lymphocytes/100 WBC (Bld) 10.7 % Low 20-40 [facility] Comment on above: Order Comment: Campu s: M Performed By: #### L 200.26849 ####[address] [address]Qg# [phone] MCHC (RBC) [Mass/Vol] 30.1 g/dL Low 32.0-36.0 [facility] Comment on above: Order Comment: Campu s: M Performed By: #### L 200.31594 ####[address] [address]Xj# [phone] MCV (RBC) [Entitic vol] 97.9 fL Normal 80.0-99.0 M [facility] Comment on above: Order Comment: Campu s: M Performed By: #### L 200.03337 ####[address] [address]Kg# [phone] MONO ABS 0.70 K/CU MM Normal 0.1-1.1 [facility] Comment on above: Order Comment: Campu s: M Performed By: #### L 200.03345 ####[address] [address]Hu# [phone] Monocytes/100 WBC (Bld) 5.9 % Normal 2-10 M [facility] Comment on above: Order Comment: Campu s: M Performed By: #### L 200.99143 ####[facility] [id number] [place] [address]Nh# [phone] NEUTROPHIL ABS 8.70 K/CU MM High 2.0-8.3 [facility] Comment on above: Order Comment: Campu s: M Performed By: #### L 200.91986 ####[facility] [id number] [place], [place] [address]Ph# [phone] Neutrophils/100 WBC (Bld) 77.2 % High 45-75 [facility] Comment on above: Order Comment: Campu s: M Performed By: #### L 200.87411 ####[facility] [id number] [place], [place] [address]Xg# [phone] Nucleated RBC/100 WBC (Bld) [Ratio] 0.0 % Normal Less than 1 [facility] Comment on above: Order Comment: Campu s: M Performed By: #### L 200.97650 ####[facility] [id number] [place] [address]Dj# [phone] Platelet mean volume (Bld) [Entitic vol] 11.0 fL Normal 9.4-12.4 [facility] Comment on above: Order Comment: Campu s: M Performed By: #### L 200.36646 ####[facility] [id number] [place] [address]Aa# [phone] Platelets (Bld) [#/Vol] 259 K/CU MM Normal 150-450 [facility] Comment on above: Order Comment: Campu s: M Performed By: #### L 200.62939 ####[facility] [id number] [place] [address]Mz# [phone] RBC (Bld) [#/Vol] 2.85 M/CU MM Low 3.90-5.30 [facility] Comment on above: Order Comment: Campu s: M Performed By: #### L 200.75349 ####[facility] [id number] [place] [address]Vb# [phone] WBC (Bld) [#/Vol] 11.2 K/CUMM High 4.5-11.0 [facility] Comment on above: Order Comment: Campu s: M Performed By: #### L 200.68648 ####[facility] [id number] [place] [address]Ji# [phone] GFR ESTon 08-14-2020 IF AMER Greater than 60 Normal [facility] Comment on above: Order Comment: Campu s: M Performed By: #### L 500.00827, L500.51782, L500.97360 ####[facility] [id number] [place], [place] [address]Ar# [phone] IF non-AFR AMER Greater than 60 Normal [facility] Comment on above: Order Comment: Campu s: M Performed By: #### L 500.66903, L500.38134, L500.77241 ####[facility] [id number] [place], [place] [address]Zi# [phone] MAGNESIUMon 08-14-2020 Magnesium [Mass/Vol] 1.6 MG/CL Normal 1.6-2.6 [facility] Comment on above: Order Comment: Campu s: M Performed By: #### L 500.13048, L500.48156, L500.73413 ####[facility] [id number] [place], [place] [address]Um# [phone] OTPNon 08-14-2020 OT Progress Note Normal [facility] OTPN Occupational Therapy Inpatient Treatment Note Medical Diagnosis: Acute hypoxemic respiratory failure, Syncope, pneumonia, hypothyroidism OCCUPATIONAL PROFILE AND HISTORY Demographics: Age: 70Y Gender: Female Primary Language: Estonian Preferred Language: Estonian Referring Service/Team: Cardiology Rehabilitation Precautions/Restrictio ns: NG tube, SOFT WRIST restraints, 50L high flow NC, Patient Report: REALLY, I WAS PLAYING BALL" Patient/Caregiver Goals: None stated Pain: Patient unable to communicate level of pain. Clinical indicators of pain include: No Clinical Indicators of Pain. OBJECTIVE / OCCUPATIONAL PERFORMANCE General Observation: SEEN AM THIS DATE.. PATIENT IN BED NON SEKSICAL BUT WHEN ASKED A DIRECT QUESTION WAS ABLE TO ANSWER. THEN BECAME NONSENSICAL AGAIN NURSE CASTRO ASSISTED W/ TRANSFER TO CHAIR Activities of Daily Living: Current Status Previous Status ADLs Feeding - Total assistance Grooming - Total assistance Bathing-UE - Total assistance Bathing-LE - Total assistance Dressing-UE - Total assistance Dressing-LE - Total assistance Toileting - Total assistance AM-PAC Daily Activities: Putting On/Taking Off Lower Body Clothing: Total assistance needed Bathing:: Total assistance needed Toileting: Total assistance needed Putting On/Taking Off Upper Body Clothing: Total assistance needed Grooming: Total assistance needed Eating a Meal: Total assistance needed Raw Score = 6 , AM-PAC t-Scale Score = 17.07 and G-Code Modifier = CN Functional Mobility: [facility] PATIENT NAME: ANDRE BLANCA [facility] Dr. Andrea MEDICAL REC #: [id number] [place] [address] ADMIT DATE: 07/27/20 SERVICE DATE: 08/14/20 Occupational Therapy Progress Note ATTENDING PHY: Marta Horvath DO Bed Mobility: All bed mobility including supine to sit, rolling, scooting. requiring moderate assistance. 2 persons, mod v/cs for inkos mojica pushing on eob w/ sitting SBA UNSUPPORTED SITITNG BALNACE FOR APPROX 10 MINS, NOTED PATIENT COUGHING UP SECRETIONS ONCE SITTING Transfers: Patient transferred bed to/from chair requiring moderate assistance of 2 persons. No equipment was used. bilateral graphics intern Locomotion/Gait/Ambula tion: Not assessed/applicable Interventions: Self Care/Home Management: BED MOBILITY, TRANSFERS, UNSUPPORTED SITTING BALANCE, FOLLOWING COMMANDS, MAKING NEEDS KNOWN, ORIENTATION Therapeutic Exercise: BUE ACTIVE ASSIST CARDIAC EXS RECLINED IN CHAIR X 10 REPS W/ REST BREAKS Pain Reassessment: No significant change in pain during session. Education: Education Provided: Precautions. Plan of care. Safety issues and interventions. Fall protocol. Altered mental status. Repeated re-orientation. Impulsivity. Use of adaptive devices. Supervision requirements. Activities of daily living. Bed mobility. Functional transfers. Home exercise/activity plan. Audience: Patient. Mode: Explanation. Demonstration. Response: Needs practice. Needs reinforcement. No evidence of learning. ASSESSMENT Response to Visit: FAIR TOLERANCE TO EXS AND MOBILITY , DECREASED STRENGTH, ENDURANE, CONFUSION LIMITING PATIENT IS AT A HIGH RISK FOR FALLS Activity/Participation Problem List and Goals: No updates at this time. Progress Toward Goals: TREATMENT GOAL REVIEW: 1. MOD I SELF CARE - Not Met: ONGOING 2. MOD I FUNCTIONAL TRANSFERS - Not Met ONGOING 3. MOD I FUNCTIONAL MOBILITY FOR GETTING AROUND THE HOUSE - Not Met ONGOING 4. IMPROVED STRENGTH/PULMONARY ENDURANCE TO DO ADL PROJECTED WHILE MAINTAINING O2 SATS ABOVE 92 - Not Met ONGOING 5. MOD I MIN CHALLENGE STANDING TASKS STANDING FOR UP TO 10 MIN AT A TIME W/ MINIMAL TO NO C/O DIZZINESS - Not Met ONGOING Time frame to achieve treatment goal(s): 5x a wk until d/c PLAN Treatment Frequency, Duration and Interventions: Occupational Therapy is recommended for 5X A WK UNTIL D/C Occupational Therapy treatment is to include: ]ADL TRAINING, TRANSFER TRAINING, STANDING BALANCE/ENDURANCE TRAINING, [facility] PATIENT NAME: ANDRE BLANCA [facility] Dr. Andrea MEDICAL REC #: [id number] [place] [address] ADMIT DATE: 07/27/20 SERVICE DATE: 08/14/20 Occupational Therapy Progress Note ATTENDING PHY: Marta Horvath DO FUNCTIONAL MOBILITY TRAINING, STRENGTHENING,GRADED THERAPEUTIC EXERCISES/ACTIVITIES,P T/FAMILY EDUCATION Recommended Occupational Therapy Follow Up: Upon acute care discharge, the following is currently recommended: Inpatient Occupational Therapy, LESS THAN 60 minutes per day. Equipment Recommended: TBD Recommended Consults: None currently. Development of Plan of Care: Patient participated in plan of care development today. If there are any questions regarding this service, please contact the Acute Therapy Department at extension [phone] Communication to Nursing: No updates at this time. Location of Patient at End of Therapy Session: In chair, call light within reach Services: Total Billed: 38 minutes (Timed: 38, Untimed: 0) 23.00 Timed: [64974] ADL-HOME MANAGEMENT EA 15 MIN 15.00 Timed: [93857] THERAPEUTIC EXERCISE EA 15 MIN 0.00 Untimed: [] OT Treatment General ORDER Signed by: SIMONA LLAMAS/Asuncion 08/14/2020 14:51:22 - CoSigned By: RAJI HOYOS OTR/L 08/14/2020 3:42:[address] [facility] PATIENT NAME: ANDRE BLANCA [facility] Dr. Andrea MEDICAL REC #: [id number] [place] [address] ADMIT DATE: 07/27/20 SERVICE DATE: 08/14/20 Occupational Therapy Progress Note ATTENDING PHY: Marta Horvath DO Normal [facility] Patient Name: ANDRE BLANCA [facility] [address] Date of : [address] [place], [place] [address] Unit Number: [id number] Progress Note-Hospitalist Patient Status: ADM IN Attending Doctor: Marta Horvath DO Service Date: 08/14/20 1550 Chief Complaint Chief Complaint Syncope Subjective S: (2 ROS minimum) Patient answering questions slightly better today. Currently ANOx 2-3 although repeats herself frequently. Denied fevers chills. Claims some shortness of breath and has a slight cough. Signoff note: Patient is a 70-year-old female past medical history of COPD hypothyroidism CVA current syncopal events presented to emergency after a reported syncopal event. At that time she was found to be hypoxic chest x-ray was read as a left lower hazy opacity. Patient was on antibiotics. Patient later thought to have had an aspiration event and has been confused. Pulmonology/critical care has been following. Patient has been requiring high flow nasal cannula. Has been slow to improve. Mental status has been a little better the last couple of days she is currently ANO x2-3 Objective (ROS) Nursing Vitals Vital Signs (Last) Result Date Time Pulse Ox 94 08/14 1150 O2 Delivery HIGH FLOW NC 08/14 1150 O2 Flow Rate 50L 08/14 1150 B/P 132/55 08/14 1000 B/P Mean 79 08/14 1000 Pulse 101 08/14 1000 Resp 20 08/14 1000 Temp 98.6 08/14 0800 Physical Exam Physical Examination Notes General: Elderly female, patient is alert and oriented x2-3 and is in no acute respiratory distress HEENT: Normal cephalic, atraumatic, PERRLA Lungs: Some coarse breath sounds bilaterally, some transmitted upper airway sounds. No wheezing noted Cardiac: Borderline tachycardic, regular rhythm, no murmurs, no rubs. Abdomen: Soft, nontender, nondistended, bowel sounds are active. Extremities: No edema, cyanosis, or clubbing. Skin: No rashes or breakdown. Musculoskeletal: Normal MS exam, moves all extremities Lymphatic: Negative cervical, supra-clavicular, groin lymphadenopathy. Neurologic: Cranial nerves from II-XII intact grossly, no focal deficits. Psychiatry: Some confusion noted Diagnostic Data: Lab 24hr (CBC/BMP [facility]) 08/14/20 0451: [Embedded Image Not Available] Anion Gap LESS THAN 3 L, Est GFR ( Amer) Greater than 60, Est GFR (Non-Af Amer) Greater than 60, BUN/Creatinine Ratio 18, Glucose 171 H, Total Calcium 8.3 L, Magnesium 1.6, RBC 2.85 L, MCV 97.9, MCHC 30.1 L, RDW 15.9 H, MPV 11.0, Immature Gran % (Auto) 2.1, Abs Immat Gran (auto) 0.20, Seg Neutrophils % 77.2 H, Lymphocytes % 10.7 L, Monocytes % 5.9, Eosinophils % 3.7, Basophils % 0.4, Neutrophils # 8.70 H, Lymphocytes # 1.20, Monocytes # 0.70, Eosinophils # 0.40, Basophils # 0.10, Nucleated RBCs 0.0 Assessment and Plan Conclusion 1. Pneumonia Patient completed course of antibiotic treatment On Fariha 11:30a Aug 13, 2020 DELIA ADAM wrote Patient currently off antibiotic therapy completed course of treatment. Pulmonology/ critical care has been following. She remains afebrile white blood cell count down to 11 today On Wed 2:21p Aug 12, 2020 DELIA ADAM wrote Patient completed course of antibiotics with Unasyn for treatment of aspiration pneumonia. White blood cell count was down to 13.8 today. She is afebrile. Pulmonology is following On Tue 1:30p Aug 11, 2020 DELIA ADAM wrote Patient was under treatment for aspiration. Has been on Unasyn for antibiotic coverage. White blood cell count down to 15.7 today. Chest x-ray was repeated this morning and interstitial and alveolar opacities remain bilaterally without significant change per the radiologist read. On Mon 12:30p Aug 10, 2020 DELIA ADAM wrote Pulmonology/critical care has been following. Patient was under treatment for aspiration. Patient has been on Unasyn for antibiotic coverage. White blood cell count remains elevated at 18.7. Chest x-ray today was read as no significant interval change in noted diffuse interstitial and alveolar opacities present bilaterally On Sun 1:21p Aug 09, 2020 DELIA ADAM wrote Some concern that this may be secondary to aspiration. Patient has been on Unasyn. Strep and Legionella antigens were previously checked and were negative. White blood cell count at 19.1 today. Pulmonology/critical care has been following. Chest x-ray today was read as worsening bilateral hazy interstitial pulmonary opacities left greater than right. Patient remains on high flow On Sat 3:42p Aug 08, 2020 DELIA ADAM wrote Some concern this may been secondary to aspiration. Patient continues with Unasyn. White blood cell count on last check was 18.7. Patient was previously checked for strep and Legionella antigens and was negative. Pulmonology has been following. Chest x-ray today was read as worsening appearance of the lungs. Bilateral pulmonary infiltrates were noted. Patient was on high flow 2. Acute respiratory failure with hypoxia Pulmonary critical care has been following. Patient has remained on high flow nasal cannula. Chest x-ray today was read as bilateral interstitial and alveolar infiltrates/ edema similar to the prior previous study. On Fariha 11:30a Aug 13, 2020 DELIA ADAM wrote Patient continues to have high oxygen needs. Most recent chest x-ray from 1229 was read as no significant interval change. Plan to repeat chest x-ray in a.m. On Mon:Aug 12, 2020 DELIA ADAM wrote Patient continues to have high oxygen needs. Most recent chest x-ray was read as no significant interval change. Interstitial and alveolar opacities remain bilaterally On MonAug 11, 2020 DELIA ADAM wrote Likely secondary to recent pneumonia. Patient still requiring high flow nasal cannula, wean O2 as tolerated, pulmonary critical care has been following and managing On MonAug 10, 2020 DELIA ADAM wrote Patient enoc on high flow nasal cannula, wean O2 as tolerated. Chest x-ray showing findings concerning for pneumonia for which patient has been receiving treatment with Unasyn. Pulmonary critical care following On MonAug 09, 2020 DELIA ADAM wrote Patient remains on high flow, chest x-ray showing findings concerning for pneumonia On Sat 3:Aug 08, 2020 DELIA ADAM wrote Possibly secondary to recent pneumonia. Chest x-ray showing bilateral pulmonary infiltrates 3. TASHI (acute kidney injury) Creatinine 0.61 on last check TASHI thought to be resolved On Fariha 11:30a Aug 13, 2020 DELIA ADAM wrote Creatinine 0.56 on last check. TASHI currently thought to be resolved On MonAug 12, 2020 DELIA ADAM wrote TASHI thought to be resolved creatinine 0.59 on last check On Mon:Aug 11, 2020 DELIA ADAM wrote Patient with previous TASHI with creatinine up to 4.24, creatinine now 0.67 on last check. TASHI thought to be resolved On Mon:Aug 10, 2020 DELIA ADAM wrote TASHI thought to be improved, creatinine 0.72 on last check On Mon:Aug 09, 2020 DELIA ADAM wrote TASHI thought to be improved creatinine 0.76 on last check On Sat 3:42p Aug 08, 2020 DELIA ADAM wrote TASHI thought to be improved. Creatinine was previously as high as 4.24, was 0.76 on check this morning 4. Syncope Patient not a great historian. Had previous positive orthostatic vitals which may have been a contributing cause to her syncope. Echocardiogram was also performed which showed an EF of 60 to 65%. Would recommend good oral intake hydration patient currently on tube feeds On Fariha Aug 13, 2020 DELIA ADAM wrote Patient not thought to be reliable historian. She had previously had positive orthostatic vitals. Echocardiogram was previously performed showed an EF of 6065%. Maintain good oral hydration/intake On MonAug 12, 2020 DELIA ADAM wrote Patient not thought to be reliable historian. Patient previously had some positive orthostatic vitals. Attempt to maintain good hydration. Echocardiogram was performed which showed an EF of 60 to 65% On e Aug 11, 2020 DELIA ADAM wrote Patient not thought to be reliable historian difficult to assess. No known loss of consciousness. Patient previously had some orthostatic vitals. Echocardiogram was performed which showed an EF of 60 to 65%. Patient had received fluids On Mon 12:Aug 10, 2020 DELIA ADAM wrote No current complaints of lightheadedness or dizziness. However patient is a very poor historian as she is only ANO x1. Previously had positive orthostatic vitals. Echo was performed showed an EF of 60 to 65%. Patient was given fluids On Mon:Aug 09, 2020 DELIA ADAM wrote No current complaints of lightheadedness or dizziness a little patient is not thought to be a great historian currently. She previously had previous positive orthostatic vitals. Echo had been performed which showed an EF of 60 to 65% On Sat 3:42p Aug 08, 2020 DELIA ADAM wrote No current complaints of lightheadedness or dizziness. Patient had positive orthostats noted. Echocardiogram showed an EF of 60 to 65% 5. Hypokalemia Potassium level 4.2 on last check, improvement in potassium level from 3.4 yesterday On Fariha 11:30a Aug 13, 2020 DELIA ADAM wrote Potassium level 3.4, patient was ordered replacement. On Mon:Aug 12, 2020 DELIA ADAM wrote Potassium level low today at 3.3. Patient was ordered replacement, magnesium level was checked and was 1.6 today and was also supplemented On MonAug 11, 2020 DELIA ADAM wrote Potassium level low today at 3.4 patient was ordered replacement, recheck in a.m., check magnesium level in a.m. On MonAug 10, 2020 DELIA ADAM wrote Potassium level somewhat better overall currently 3.5. Replace as needed On MonAug 09, 2020 DELIA ADAM wrote Improvement in potassium level overall to 3.8 On Sat 3:42p Aug 08, 2020 DELIA ADAM wrote Potassium level low at 3.4 today. Patient was ordered IV potassium replaced, check magnesium level in the a.m. 6. Hypernatremia Sodium level continues to improve and is down to 139 on increased free water flushes On Fariha 11:30a Aug 13, 2020 DELIA ADAM wrote Some continued improvement sodium level down to 144 today, continue with free water flushes On Mon:Aug 12, 2020 DELIA ADAM wrote Some improvement in sodium level today down to 149 on increased free water flushes down, continue with free water flushes and continue to monitor sodium level On MonAug 11, 2020 DELIA ADAM wrote Sodium level 153 again today. Patient's free water flushes are being increased, follow sodium level in a.m. On MonAug 10, 2020 DELIA ADAM wrote Sodium level slightly worse today at 153. Patient on free water flushes with tube feeds. Will increase free water flushes On MonAug 09, 2020 DELIA ADAM wrote Sodium level 151 on last check and was increasing. Adding free water with tube feeds Disclaimer This dictation was created using voice recognition software. Phonetic and/or minor grammatical errors may exist. eSign Date and Time Delia Adam MD Verified/Reviewed by 08/14/[address] [place] [address] Progress Note-Hospitalist [facility] PROG[facility] 08-14-2020 PROG.ASHKAN [facility] Patient Name: ANDRE BLANCA [address] Date of : [address] [place] [address] Unit Number: [id number] Progress Note-Adjuster And Inspector Patient Status: ADM IN Attending Doctor: Marta Horvath DO Service Date: 08/14/20 07 Progress Note-Adjuster And Inspector Subjective Subjective: Patient in bed. Patient seems agitated but directable at times. Answering questions about self. Per nursing patient does repeat herself frequently Objective Vital Signs: Vital Signs (Last) Result Date Time Pulse Ox 93 08/14 0500 B/P 108/56 08/14 0500 B/P Mean 75 08/14 0500 O2 Delivery HIGH FLOW NC 08/14 0500 O2 Flow Rate 55% 08/14 0500 Temp 99.1 08/14 0500 Pulse 99 08/14 0500 Resp 24 08/14 0500 IandO 24 Hour Summary 08/14 0000 Intake Total 1334 Output Total 3206 Balance -1872 Intake, IV 250 Intake, Tube 1084 Feeding Output, Stool 6 Output, Urine 3200 Patient 243 lb Weight Exam: General: Arousable answering questions about self. Heart: RRR,nl s1/s2 Lungs: Course BS bilaterally R > L; Abdomen: Soft, nt, nd, + BS, obese Extremities: No LE edema Neurologic: Answering questions about self, moving extremities x4, psychiatric agitation seems better Medications: Medications Current Sig/Antonella Start time Last Medication Dose Route Stop Time Status Admin Acetaminophen 500 MG Q6HPRN PRN 08/04 193 AC 08/13 (TYLENOL ORAL LIQ) TUBE 1247 Albuterol Sulfate 2.5 MG Q6HPRN PRN 07/28 0030 AC (VENTOLIN/PROVENTIL INH 2.5MG/3ML INH.NEB) Albuterol/Ipratropium 3 ML Q4HRT 08/04 2030 AC 08/14 (DUONEB 0.5-3 MG/3 INH 0329 ML INH.NEB) Albuterol/Ipratropium 3 ML Q2HPRN PRN 07/28 010 AC (DUONEB 0.5-3 MG/3 INH ML INH.NEB) Budesonide 0.5 MG BID 08/04 2100 AC 08/13 (PULMOCORT 0.5MG/2ML INH 1941 INH.NEB) Buspirone HCl 10 MG TIDWM 08/12 1200 AC 08/13 (BUSPAR TAB) TUBE 1620 Carbamazepine 200 MG TIDWM 08/05 0800 AC 08/13 (TEGRETOL TAB) TUBE 1620 Clopidogrel Bisulfate 75 MG QDAY 08/05 0900 AC 08/13 (PLAVIX TAB) TUBE 0917 Dexmedetomidine HCl 400 MCG TITRATE(SEE SHAUNA VFS) 08/07 1330 AC 08/12 (PRECEDEX VIAL) IV 0614 Sodium Chloride 96 ML (Sodium Chloride 0.9%) Docusate Sodium 100 MG BID 08/11 1230 AC 08/12 (COLACE ORAL LIQ) TUBE 0851 Enoxaparin Sodium 40 MG QDAY 07/28 0900 AC 08/13 (LOVENOX D.SYR) SC 0918 Esomeprazole 40 MG BIDAC 08/05 0700 AC 08/14 Magnesium TUBE 0603 (NEXIUM CAP (TXI)) Fluoxetine HCl 20 MG QDAY 08/05 0900 AC 08/13 (PROZAC CAP) TUBE 0917 Guaifenesin 10 ML TID 08/11 1400 AC 08/13 (ROBITUSSIN 200MG/10 TUBE 2156 ML ORAL LIQ) Haloperidol Lactate 2 MG Q4HPRN PRN 08/07 0900 AC 08/12 (HALDOL AMP) IV 0351 Heparin Sodium See Dose Q24H 08/06 0900 AC 08/13 (Porcine) Insts (1) IV 0918 (HEP-LOCK *10*UNITS/ ML IV D.SYR.PF) Heparin Sodium See Dose PRN PRN 08/05 1500 AC (Porcine) Insts (2) IV (HEP-LOCK *10*UNITS/ ML IV D.SYR.PF) Levothyroxine Sodium 0.125 MG QDAYAC 08/09 0700 AC 08/14 (SYNTHROID TAB) PO 0603 Loperamide HCl 2 MG PRN PRN 08/04 1930 AC 08/13 (IMODIUM AD ORAL TUBE 1414 LIQUID UDC) Melatonin 10 MG QHS 08/09 2200 AC 08/13 (MELATONIN TAB) TUBE 2155 Menthol/Methyl 1 APPL BIDPRN PRN 07/28 0030 AC 08/11 Salicylate TP 1126 (MIHIR ALVAREZ T.CREAM) Ondansetron HCl 4 MG BIDPRN PRN 08/04 1930 AC (ZOFRAN TAB) TUBE Ondansetron HCl 4 MG Q6HPRN PRN 07/27 2100 AC 08/04 (ZOFRAN VIAL) IV 2127 Polyethylene Glycol 17 GM QDAY 08/11 1200 AC 08/12 (MIRALAX PACKT) TUBE 0851 Pravastatin Sodium 40 MG QHS 08/04 2200 AC 08/13 (PRAVACHOL TAB) TUBE 2154 Pregabalin 150 MG BID 08/04 2100 AC 08/13 (LYRICA CAP) TUBE 215 Quetiapine Fumarate 100 MG QHS 08/08 2200 AC 08/13 (SEROQUEL TAB) TUBE 2154 Risperidone 3 MG BID 08/09 2100 AC 08/13 (RISPERDAL TAB) TUBE 215 Sodium Chloride 4 ML QIDRT 08/10 1230 AC 08/13 (Sodium Chloride 3% INH 1941 INH.neb) Sodium Chloride See Dose Q24H 08/06 0900 AC 08/13 (Sodium Chloride Insts (3) IV 0918 0.9% FLUSH D.SYR) Sodium Chloride See Dose PRN PRN 08/05 1500 AC (Sodium Chloride Insts (4) IV 0.9% FLUSH D.SYR) Dose Instructions: (1)Heparin Sodium (Porcine) (HEP-LOCK *10*UNITS/ML IV D.SYR.PF): 50-200 UNITS (2)Heparin Sodium (Porcine) (HEP-LOCK *10*UNITS/ML IV D.SYR.PF): 50-200 UNITS (3)Sodium Chloride (Sodium Chloride 0.9% FLUSH D.SYR): 10-40 ML (4)Sodium Chloride (Sodium Chloride 0.9% FLUSH D.SYR): 10-40 ML ABG: ABG-Last Test Result Date Time Blood Gas Specimen Type ARTERIAL 08/11 538 Sample Site L RADIAL 08/11 538 Patient Temperature (C) 37.2 08/11 538 pH (7.35 - 7.45) 7.41 08/11 538 pCO2 (35 - 45 MMHG) 52.4 H 08/11 538 pO2 (80 - 100 MMHG) 71 L 08/11 538 HCO3 (22 - 26 MMOL/L) 32.5 H 08/11 538 Base Excess (-2.0 - 2.0 MML/L) 7.0 H 08/11 538 ABG O2 Sat (Measured) (90 - 100 %) 92.7 08/11 538 ABG Oximetry (%) 94 08/11 538 ABG O2 Content (15.7 - 21.6 mL/dL) 11.9 L 08/11 538 ABG Hemoglobin (10 - 16 GM/DL) 9.1 L 08/11 538 ABG Reduced Hgb (0 - 5 %) 6.8 H 08/11 538 ABG Carboxyhemoglobin (0 - 10 %) 0.2 08/11 538 ABG Methemoglobin (0.4 - 1.5 %) 0.3 L 08/11 538 ABG O2 Capacity (mL/dL) 12.6 08/11 538 Doug Test POSITIVE 08/11 538 Sodium (136 - 148 mmol/L) 147 08/11 538 Potassium (3.5 - 5.0 MMOL/L) 3.2 L 08/11 538 Glucose (60 - 80 MG/DL) 174 H 08/11 538 Lactate (0.40 - 2.00 MMOL/L) 0.94 08/11 538 Patient Equipment HIGH FLOW CANNULA 08/11 538 Liter Flow (L/M) 45.00 08/11 538 FiO2 % (%) 52 08/11 538 Lab Results: Lab 24hr (CBC/BMP Fishbone) 08/14/20 0451: [Embedded Image Not Available] Anion Gap LESS THAN 3 L, Est GFR ( Amer) Greater than 60, Est GFR (Non-Af Amer) Greater than 60, BUN/Creatinine Ratio 18, Glucose 171 H, Total Calcium 8.3 L, Magnesium 1.6, RBC 2.85 L, MCV 97.9, MCHC 30.1 L, RDW 15.9 H, MPV 11.0, Immature Gran % (Auto) 2.1, Abs Immat Gran (auto) 0.20, Seg Neutrophils % 77.2 H, Lymphocytes % 10.7 L, Monocytes % 5.9, Eosinophils % 3.7, Basophils % 0.4, Neutrophils # 8.70 H, Lymphocytes # 1.20, Monocytes # 0.70, Eosinophils # 0.40, Basophils # 0.10, Nucleated RBCs 0.0 Assessment/Plan Assessment/Problem List: 1. Acute hypoxemic respiratory failure 70 y/o with PMHx of COPD, HFpEF, CVA, and Former Tobacco Abuse presented to [facility] emergency department on 07/27 secondary to Syncope and was admitted to telemetry. Our service was consulted on 08/04 secondary to Worsening Hypoxemia requiring HFNC. She is being transferred to the D-ICU. ASSESSMENT: - LLL Aspiration Pneumonia - Acute Hypoxemic Respiratory Failure 2/2 above - Nausea and Vomitting - Encephalopathy - TASHI 2/2 Dehydration - HFpEF (EF 60-65% per Echo 07/2020) - Tobacco Abuse, in Remission - Obesity - Hx of COPD (no PFTs on file) - Hx of CVA -History of multiple falls -History of psychiatric illness PLAN: * Currently oxygenating adequately on 45L/50% FiO2 via HFNC. Continue to wean with goal > SpO2 88% * CXR showed bilateral airspace disease left greater than right. Chest x-ray this morning 08/14/2020 is improving. * Weaned off of Precedex. Patient with long history of psychiatric illness. Psychiatry help appreciated. * No documented fevers. Mild leukocytosis. Urine Ag/SARS-CoV-2 negative. * Finished IV Unasyn (Day #02/17) for aspiration pneumonia, watch off antibiotics. Watch symptoms. * Abdominal X-ray ==> neg for ileus/obstruction, NG tube in for feeds. Will need speech evaluation * c/w TFs , started on free water for (hypernatremia) increase to 250cc q4H, hyponatremia improving. * Continue scheduled and PRN Duonebs. Add Budesonide. Resume home Symbicort upon discharge * Continue Incentive Spirometry. Add Acapella Flutter Valve and Hypertonic Saline Nebs for proper pulmonary toilet; add guaifenesin * improved renal function w fluids, normalized by most recent testing. * Replace electrolytes. 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 Patient spent time at the [facility] according to son, that is the facility that she met her . * History of multiple falls in the past. * F/E/N: HL fluids/replete lytes as needed /c/w TFs * GI/DVT Prophylaxis: PO nexium/Lovenox * CODE STATUS: DNR Comfort Care arrest, discussed with son Giana Blanca, area code [phone]. Did also discuss if patient is functionally declining, consider changing CODE STATUS to comfort only. Patient is requiring higher oxygen than yesterday. Will watch carefully with full medical therapy. Patient son was updated on 08/11/2020. Please see orders. Total care time 33minutes Disclaimer This dictation was created using voice recognition software. Phonetic and/or minor grammatical errors may exist. eSign Date and Time Jayesh Loera MD Verified/Reviewed by 08/14/20 [id number] [facility] Progress Note-Adjuster And Inspector [facility] PTPNon 08-14-2020 PT Progress Note [facility] PTPN Physical Therapy Inpatient Treatment Note Medical Diagnosis: 1. Acute hypoxemic respiratory failure 2. Syncope 3. Hypothyroidism multiple rib fxs Demographics: Age: 70Y Gender: Female Primary Language: Estonian Preferred Language: Estonian Rehabilitation Precautions/Restrictio ns: NG tube, 4-point restraints, high flow NC, SUBJECTIVE Patient Report: "I have to go to the bathroom." Pt continues w/ confusion, repeating herself. Oriented to self and "medical building". Patient/Caregiver Goals: None stated Pain: Patient currently without complaints of pain. OBJECTIVE General Observation: Pt in chair, agreeable. Assisted w/ transfer to/from BSC, nursing providing pericare. Functional Activities After Today's Session: Transfers: Patient transferred sit to/from stand requiring minimal assistance of 1 person. Patient used the following equipment: Arms of chair. WW Max cues for technique, slow to rise. Assist for balance at WW, flexed posture. Min A x1 for standing transfer chair <-> BSC, assist for WW management, cues for safe approach to BSC/chair Locomotion/Ambulation: Not assessed/applicable Stairs: Not assessed. Curb Negotiation: Not assessed. AM-PAC Basic Mobility: Turning Over in Bed: A lot of difficulty Sitting/Standing Chair with Arms: A little difficulty Lying on Back to Sitting on Side of Bed: A lot of difficulty Moving To/From Bed to Chair: A little help needed Walking in Hospital Room: A little help needed Climbing 3-5 Steps with Railing: A lot of help needed Raw Score = 15 , AM-PAC t-Scale Score = 39.45 and G-Code Modifier = CK Vital Signs: Vitals: [facility] PATIENT NAME: ANDRE BLANCA [facility] Dr. Andrea MEDICAL REC #: [id number] [place] [address] ADMIT DATE: 07/27/20 SERVICE DATE: 08/14/20 Physical Therapy Progress Note ATTENDING PHY: Marta Horvath DO Oxygen Saturation: 88 % Interventions: Therapeutic Activities: Functional transfers and standing balance for BSC use as noted. Seated HEP x10 w/ cues for completion: AP, LAQ, esteban, GS. Pain Reassessment: No significant change in pain during session. Education: Education Provided: Precautions. Plan of care. Functional transfers. Safety. Equipment. Gait. Home exercise/activity plan. Audience: Patient. Mode: Explanation. Demonstration. Response: Verbalized understanding. Needs practice. Needs reinforcement. ASSESSMENT Response to Visit: Fair, pt continues to exhibit confusion and poor safety awareness, high fall risk. Recommending SNF for slower paced therapies. Activity/Participation Problem List and Goals: No updates at this time. Progress Toward Goals: TREATMENT GOAL REVIEW: 1. Pt transfer MOD I - Not Met: ONgoing 2. Pt ambulate at least 50 feet WW MOD I - Not Met Ongoing 3. Demo independence with LE thex for endurance and strengthening - Not Met Ongoing Time frame to achieve treatment goal(s): 2 weeks PLAN Treatment Frequency, Duration and Interventions: Physical Therapy is recommended for 5x/week x2 weeks Physical Therapy treatment is to include: gait, transfes, endurance, balance, safety Recommended Physical Therapy Follow Up: Upon acute care discharge, the following is currently recommended: Inpatient Physical Therapy, LESS THAN 60 minutes per day. Recommended Equipment: Recommended Consults: Development of Plan of Care: There was no change to plan of care today. If there are any questions regarding this service, please contact the Acute Therapy Department at extension [phone] Location of Patient at End of Therapy Session: In chair, chair alarm in place, call light within reach [facility] PATIENT NAME: ANDRE BLANCA [facility] Dr. Andrea MEDICAL REC #: [id number] [place] [address] ADMIT DATE: 07/27/20 SERVICE DATE: 08/14/20 Physical Therapy Progress Note ATTENDING PHY: Matra Horvath DO Services: Total Billed: 25 minutes (Timed: 25, Untimed: 0) 25.00 Timed: [55820] THER ACTIVITIES / 15 MIN 0.00 Untimed: [] PT Treatment- General ORDER Signed by: Michel Cooper, TENTER 08/14/2020 16:20:50 - CoSigned By: SINDHU MONTANEZ, PT 08/14/2020 5:28:[address] [facility] REC #: [id number] [place] [address] ADMIT DATE: 07/27/20 SERVICE DATE: 08/14/20 Physical Therapy Progress Note ATTENDING PHY: Marta Horvath DO Normal [facility] CBC W/DIFFon 08-13-2020 EOS ABS 0.55 K/CU MM High 0-0.5 [facility] Comment on above: Order Comment: Maciel s: M Performed By: #### L 200.72788 #### [facility] [address] [place] [address] Eosinophils/100 WBC (Bld) 5.0 % Normal 0-5 [facility] Comment on above: Order Comment: Campu s: M Performed By: #### L 200.71295 #### [facility] [address] [place] [address] HYPO 2+ Normal [facility] Comment on above: Order Comment: Campu s: M Performed By: #### L 200.71000 #### [facility] [address] [place] [address] Lymphocytes (Bld) [#/Vol] 0.99 K/CU MM Normal 0.9-4.4 [facility] Comment on above: Order Comment: Campu s: M Performed By: #### L 200.36768 #### [facility] [address] [place] [address] Lymphocytes/100 WBC (Bld) 9.0 % Low 20-40 [facility] Comment on above: Order Comment: Campu s: M Performed By: #### L 200.90294 #### [facility] [address] [place] [address] MONO ABS 0.22 K/CU MM Normal 0.1-1.1 [facility] Comment on above: Order Comment: Campu s: M Performed By: #### L 200.08401 #### [facility] [address] [place] [address] Monocytes/100 WBC (Bld) 2.0 % Normal 2-10 M [facility] Comment on above: Order Comment: Campu s: M Performed By: #### L 200.53502 #### [facility] [address] [place] [address] NEUTROPHIL ABS 9.24 K/CU MM High 2.0-8.3 [facility] Comment on above: Order Comment: Campu s: M Performed By: #### L 200.96071 #### [facility] [address] [place] [address] Neutrophils/100 WBC (Bld) 84.0 % High 45-75 [facility] Comment on above: Order Comment: Campu s: M Performed By: #### L 200.42471 #### [facility] [address] [place], [place] [id number] Platelets (Bld) [#/Vol] ADEQUATE Normal [facility] Comment on above: Order Comment: Campu s: M Performed By: #### L 200.80753 #### [facility] [address] [place] [address] PLT MORPH LARGE FORMS NOTED Normal [facility] Comment on above: Order Comment: Campu s: M Performed By: #### L 200.95015 #### [facility] [address] [place] [address] POLY 1+ Normal [facility] Comment on above: Order Comment: Campu s: M Performed By: #### L 200.93272 #### [facility] [address] [place] [address] Erythrocyte distribution width (RBC) [Ratio] 15.9 % High 11-14.5 [facility] Comment on above: Order Comment: Campu s: M Performed By: #### L 200.50441 #### [facility] [address] [place] [address] Hematocrit (Bld) [Volume fraction] 27.0 % Low 35.0-47.0 [facility] Comment on above: Order Comment: Campu s: M Performed By: #### L 200.30708 #### [facility] [address] [place], [place] [address] Hemoglobin (Bld) [Mass/Vol] 8.2 g/dL Low 11.5-15.5 [facility] Comment on above: Order Comment: Campu s: M Performed By: #### L 200.00794 #### [facility] [address] [place] [address] MCHC (RBC) [Mass/Vol] 30.4 g/dL Low 32.0-36.0 [facility] Comment on above: Order Comment: Campu s: M Performed By: #### L 200.23701 #### [facility] [address] [place] [address] MCV (RBC) [Entitic vol] 98.9 fL Normal 80.0-99.0 M [facility] Comment on above: Order Comment: Campu s: M Performed By: #### L 200.68104 #### [facility] [address] [place] [address] Nucleated RBC/100 WBC (Bld) [Ratio] 0.0 % Normal Less than 1 [facility] Comment on above: Order Comment: Campu s: M Performed By: #### L 200.75176 #### [facility] [address] [place] [address] Platelet mean volume (Bld) [Entitic vol] 11.5 fL Normal 9.4-12.4 [facility] Comment on above: Order Comment: Campu s: M Performed By: #### L 200.70744 #### [facility] [address] [place] [address] Platelets (Bld) [#/Vol] 195 K/CU MM Normal 150-450 [facility] Comment on above: Order Comment: Campu s: M Performed By: #### L 200.08052 #### [facility] [address] [place] [address] RBC (Bld) [#/Vol] 2.73 M/CU MM Low 3.90-5.30 [facility] Comment on above: Order Comment: Campu s: M Performed By: #### L 200.46414 #### [facility] [address] [place] [address] WBC (Bld) [#/Vol] 11.0 K/CUMM Normal 4.5-11.0 [facility] Comment on above: Order Comment: Campu s: M Performed By: #### L 200.90028 #### [facility] [address] [place] [address] CMPon 08-13-2020 Albumin [Mass/Vol] 1.8 g/dL Low 3.2-5.0 [facility] Comment on above: Order Comment: Campu s: M Performed By: #### L 500.52256, L500.13772 ####[facility] [id number] [place], [place] [address]Db# [phone] Albumin/Globulin [Mass ratio] 0.5 {ratio} Low 0.8-2.0 [facility] Comment on above: Order Comment: Campu s: M Performed By: #### L 500.35805, L500.10952 ####[facility] [id number] [place], [place] [address]Vd# [phone] ALK PHOS 170 U/L High 45-117 [facility] Comment on above: Order Comment: Campu s: M Performed By: #### L 500.88826, L500.97536 ####[facility] [id number] [place], [place] [address]Bl# [phone] ALT [Catalytic activity/Vol] 29 U/L Normal 13-61 [facility] Comment on above: Order Comment: Campu s: M Result Comment: RESU LTS MAY BE FALSELY DEPRESSED AFTER THE ADMINISTRATION OF SULFASALAZINE AND/OR SULFAPYRIDINE. Performed By: #### L 500.24514, L500.89486 ####[facility] [id number] [place], [place] [address]Ke# [phone] Anion gap [Moles/Vol] 3 mmol/L Low 5-16 [facility] Comment on above: Order Comment: Campu s: M Performed By: #### L 500.91745, L500.74006 ####[facility] [id number] [place], [place] [address]Ry# [phone] BILI TOTAL 0.30 MG/DL Normal 0.2-1.0 [facility] Comment on above: Order Comment: Campu s: M Performed By: #### L 500.90487, L500.29879 ####[facility] [id number] [place], [place] [address]No# [phone] Calcium [Mass/Vol] 8.0 mg/dL Low 8.5-10.5 [facility] Comment on above: Order Comment: Campu s: M Result Comment: NOTE NEW NORMAL RANGE DUE TO REAGENT CHANGE Performed By: #### L 500.10877, L500.92085 ####[facility] [id number] [place], [place] [address]Nv# [phone] Chloride [Moles/Vol] 102 mmol/L Normal 98-107 [facility] Comment on above: Order Comment: Campu s: M Performed By: #### L 500.55948, L500.41542 ####[facility] [id number] [place], [place] [address]Ob# [phone] CO2 [Moles/Vol] 40.0 mmol/L High 21-32 [facility] Comment on above: Order Comment: Campu s: M Performed By: #### L 500.00310, L500.31312 ####[facility] [id number] [place], [place] [address]Ww# [phone] Creatinine [Mass/Vol] 0.56 mg/dL Normal 0.510-0.950 [facility] Comment on above: Order Comment: Campu s: M Result Comment: Geraldine ents receiving either N-Acetylcysteine (NAC) or Metamizole prior to venipuncture, may have falsely depressed results. Performed By: #### L 500.40187, L500.82420 ####[facility] [id number] [place], [place] [address]Nf# [phone] Globulin (S) [Mass/Vol] 3.4 g/dL Normal 2.2-4.2 M [facility] Comment on above: Order Comment: Campu s: M Performed By: #### L 500.02365, L500.35961 ####[facility] [id number] [place], [place] [address]Uj# [phone] Glucose [Mass/Vol] 185 mg/dL High 70-100 [facility] Comment on above: Order Comment: Campu s: M Result Comment: 70-1 00- Normal Fasting; 100-125 Impaired Fasting; greater than 126 on more than one result- Diabetes. ADA guidelines. Results may be falsely elevated after the administration of Sulfapyridine. Results may be falsely depressed after the administration of Sulfasalazine. Performed By: #### L 500.73314, L500.85920 ####[facility] [id number] [place], [place] [address]Pc# [phone] Potassium [Moles/Vol] 3.4 mmol/L Low 3.5-5.1 [facility] Comment on above: Order Comment: Campu s: M Performed By: #### L 500.87353, L500.91533 ####[facility] [id number] [place], [place] [address]Ij# [phone] Protein [Mass/Vol] 5.2 g/dL Low 6.0-8.5 [facility] Comment on above: Order Comment: Campu s: M Performed By: #### L 500.17864, L500.52385 ####[facility] [id number] [place], [place] [address]Jf# [phone] SGOT (AST) 43 U/L High 8-34 [facility] Comment on above: Order Comment: Campu s: M Result Comment: RESU LTS MAY BE FALSELY DEPRESSED AFTER THE ADMINISTRATION OF SULFASALAZINE AND/OR SULFAPYRIDINE. Performed By: #### L 500.76874, L500.72132 ####[facility] [id number] [place], [place] [address]Jb# [phone] Sodium [Moles/Vol] 144 mmol/L Normal 136-145 [facility] Comment on above: Order Comment: Campu s: M Performed By: #### L 500.81654, L500.80667 ####[facility] [id number] [place], [place] [address]Fd# [phone] Urea nitrogen [Mass/Vol] 11 mg/dL Normal 7-26 [facility] Comment on above: Order Comment: Campu s: M Performed By: #### L 500.24410, L500.00182 ####[facility] [id number] [place], [place] [address]Us# [phone] Urea nitrogen/Creatinine [Mass ratio] 20 mg/mg Normal 15-24 [facility] Comment on above: Order Comment: Campu s: M Performed By: #### L 500.59842, L500.68695 ####[facility] [id number] [place], [place] [address]Px# [phone] GFR ESTon 08-13-2020 IF AMER Greater than 60 Normal [facility] Comment on above: Order Comment: Campu s: M Performed By: #### L 500.58780, L500.61120 ####[facility] [id number] [place], [place] [address]Ru# [phone] IF non-AFR AMER Greater than 60 Normal [facility] Comment on above: Order Comment: Campu s: M Performed By: #### L 500.50895, L500.75642 ####[facility] [id number] [place], [place] [address]Qe# [phone] OTPNon 08-13-2020 OT Progress Note Normal [facility] OTPN Occupational Therapy Inpatient Treatment Note Medical Diagnosis: Acute hypoxemic respiratory failure, Syncope, pneumonia, hypothyroidism OCCUPATIONAL PROFILE AND HISTORY Demographics: Age: 70Y Gender: Female Primary Language: Estonian Preferred Language: Estonian Referring Service/Team: Cardiology Rehabilitation Precautions/Restrictio ns: NG tube, 4-point restraints, high flow NC, Patient Report: "IM LEAVING, IM GOING, IM GOING" PATIENT NON SENSICAL TALKING TO HERSELF Patient/Caregiver Goals: None stated Pain: Patient currently without complaints of pain. OBJECTIVE / OCCUPATIONAL PERFORMANCE General Observation: SEEN PM THIS DATE.. PATIENT IN CHAIR NON SEKSICAL BUT WHEN ASKED A DIRECT QUESTION WAS ABLE TO ANSWER. THEN BECAME NONSENSICAL AGAIN Activities of Daily Living: Current Status Previous Status ADLs Feeding - Total assistance Grooming - Total assistance Bathing-UE - Total assistance Bathing-LE - Total assistance Dressing-UE - Total assistance Dressing-LE - Total assistance Toileting - Total assistance AM-PAC Daily Activities: Putting On/Taking Off Lower Body Clothing: Total assistance needed Bathing:: Total assistance needed Toileting: Total assistance needed Putting On/Taking Off Upper Body Clothing: Total assistance needed Grooming: Total assistance needed Eating a Meal: Total assistance needed Raw Score = 6 , AM-PAC t-Scale Score = 17.07 and G-Code Modifier = CN Functional Mobility: Bed Mobility: Not assessed. [facility] PATIENT NAME: ANDRE BLANCA [facility] Dr. Andrea MEDICAL REC #: [id number] [place] [address] ADMIT DATE: 07/27/20 SERVICE DATE: 08/13/20 Occupational Therapy Progress Note ATTENDING PHY: Marta Horvath DO Transfers: Transfers not assessed. Locomotion/Gait/Ambula tion: Not assessed/applicable Interventions: Therapeutic Exercise: BUE ACTIVE ASSIST CARDIAC EXS RECLINED IN CHAIR X 10 REPS W/ REST BREAKS Pain Reassessment: No significant change in pain during session. Education: Education Provided: Precautions. Home exercise/activity plan. Audience: Patient. Mode: Explanation. Demonstration. Response: Needs practice. Needs reinforcement. No evidence of learning. ASSESSMENT Response to Visit: POOR TOLERANCE TO EXS, CONFUSION LIMITING PATIENT IS TOTAL CARE Activity/Participation Problem List and Goals: No updates at this time. Progress Toward Goals: TREATMENT GOAL REVIEW: 1. MOD I SELF CARE - Not Met: ONGOING 2. MOD I FUNCTIONAL TRANSFERS - Not Met ONGOING 3. MOD I FUNCTIONAL MOBILITY FOR GETTING AROUND THE HOUSE - Not Met ONGOING 4. IMPROVED STRENGTH/PULMONARY ENDURANCE TO DO ADL PROJECTED WHILE MAINTAINING O2 SATS ABOVE 92 - Not Met ONGOING 5. MOD I MIN CHALLENGE STANDING TASKS STANDING FOR UP TO 10 MIN AT A TIME W/ MINIMAL TO NO C/O DIZZINESS - Not Met ONGOING Time frame to achieve treatment goal(s): 5x a wk until d/c PLAN Treatment Frequency, Duration and Interventions: Occupational Therapy is recommended for 5X A WK UNTIL D/C Occupational Therapy treatment is to include: ]ADL TRAINING, TRANSFER TRAINING, STANDING BALANCE/ENDURANCE TRAINING, FUNCTIONAL MOBILITY TRAINING, STRENGTHENING,GRADED THERAPEUTIC EXERCISES/ACTIVITIES,P T/FAMILY EDUCATION Recommended Occupational Therapy Follow Up: Upon acute care discharge, the following is currently recommended: Inpatient Occupational Therapy, LESS THAN 60 minutes per day. Equipment Recommended: TBD Recommended Consults: None currently. Development of Plan of Care: Patient participated in plan of care development today. If there are any questions regarding this service, please contact the Acute [facility] PATIENT NAME: ANDRE BLANCA [facility] Dr. Andrea MEDICAL REC #: [id number] [place] [address] ADMIT DATE: 07/27/20 SERVICE DATE: 08/13/20 Occupational Therapy Progress Note ATTENDING PHY: Marta Horvath DO Therapy Department at extension [phone] Communication to Nursing: No updates at this time. Location of Patient at End of Therapy Session: In chair, call light within reach Services: Total Billed: 13 minutes (Timed: 13, Untimed: 0) 13.00 Timed: [34281] THERAPEUTIC EXERCISE EA 15 MIN 0.00 Untimed: [] OT Treatment General ORDER Signed by: ROSEANNA LLAMAS 08/13/2020 13:57:25 - CoSigned By: Cayla Rios OT 08/13/2020 4:08:[address] [facility] PATIENT NAME: ANDRE BLANCA Dr. Andrea MEDICAL REC #: [id number] [place] [address] ADMIT DATE: 07/27/20 SERVICE DATE: 08/13/20 Occupational Therapy Progress Note ATTENDING PHY: Marta Horvath DO Normal [facility]: ANDRE BLAN[address] Date of : [address] [address] Unit Number: [id number] Progress Note-Hospitalist Patient Status: ADM IN Attending Doctor: Marta Horvath DO Service Date: 08/13/20 1123 Chief Complaint Chief Complaint Syncope Subjective S: (2 ROS minimum) Patient continues to be a poor historian ANO x1-2. New she was at a medical facility but could not tell us which one and was oriented to herself. Patient denies any fever chills Objective (ROS) Nursing Vitals Vital Signs (Last) Result Date Time Pulse Ox 93 08/13 1000 B/P 135/63 08/13 1000 B/P Mean 80 08/13 1000 O2 Delivery HIGH FLOW NC 08/13 1000 O2 Flow Rate 45/50 08/13 1000 Pulse 96 08/13 1000 Resp 18 08/13 1000 Temp 99.7 08/13 0800 Physical Exam Physical Examination Notes General: Elderly female, patient is alert and oriented x1-2 and is in no acute respiratory distress HEENT: Normal cephalic, atraumatic, PERRLA Lungs: Some coarse breath sounds bilaterally, some transmitted upper airway sounds. No wheezing noted Cardiac: Regular rhythm and rate, no murmurs, no rubs. Abdomen: Soft, nontender, nondistended, bowel sounds are active. Extremities: No edema, cyanosis, or clubbing. Skin: No rashes or breakdown. Musculoskeletal: Normal MS exam, moves all extremities Lymphatic: Negative cervical, supra-clavicular, groin lymphadenopathy. Neurologic: Cranial nerves from II-XII intact grossly, no focal deficits. Psychiatry: Some confusion noted Diagnostic Data: Lab 24hr (CBC/BMP [facility]) 08/13/20 0500: [Embedded Image Not Available] Anion Gap LESS THAN 3 L, Est GFR ( Amer) Greater than 60, Est GFR (Non-Af Amer) Greater than 60, BUN/Creatinine Ratio 20, Glucose 185 H, Total Calcium 8.0 L, Total Bilirubin 0.30, AST 43 H, ALT 29, Alkaline Phosphatase 170 H, Serum Total Protein 5.2 L, Albumin 1.8 L, Globulin 3.4, Albumin/Globulin Ratio 0.5 L, RBC 2.73 L, MCV 98.9, MCHC 30.4 L, RDW 15.9 H, MPV 11.5, Seg Neutrophils % 84.0 H, Lymphocytes % 9.0 L, Monocytes % 2.0, Eosinophils % 5.0, Neutrophils # 9.24 H, Lymphocytes # 0.99, Monocytes # 0.22, Eosinophils # 0.55 H, Nucleated RBCs 0.0, Platelet Estimate ADEQUATE, Platelet Morphology LARGE FORMS NOTED, Polychromasia 1+, Hypochromasia 2+ Assessment and Plan Conclusion 1. Pneumonia Patient currently off antibiotic therapy completed course of treatment. Pulmonology/ critical care has been following. She remains afebrile white blood cell count down to 11 today On Mon 2:21p Aug 12, 2020 DELIA ADAM wrote Patient completed course of antibiotics with Unasyn for treatment of aspiration pneumonia. White blood cell count was down to 13.8 today. She is afebrile. Pulmonology is following On Mon 1:30p Aug 11, 2020 DELIA ADAM wrote Patient was under treatment for aspiration. Has been on Unasyn for antibiotic coverage. White blood cell count down to 15.7 today. Chest x-ray was repeated this morning and interstitial and alveolar opacities remain bilaterally without significant change per the radiologist read. On Mon 12:30p Aug 10, 2020 DELIA ADAM wrote Pulmonology/critical care has been following. Patient was under treatment for aspiration. Patient has been on Unasyn for antibiotic coverage. White blood cell count remains elevated at 18.7. Chest x-ray today was read as no significant interval change in noted diffuse interstitial and alveolar opacities present bilaterally On Sun :p Aug 09, 2020 DELIA ADAM wrote Some concern that this may be secondary to aspiration. Patient has been on Unasyn. Strep and Legionella antigens were previously checked and were negative. White blood cell count at 19.1 today. Pulmonology/critical care has been following. Chest x-ray today was read as worsening bilateral hazy interstitial pulmonary opacities left greater than right. Patient remains on high flow On Sat 3:42p Aug 08, 2020 DELIA ADAM wrote Some concern this may been secondary to aspiration. Patient continues with Unasyn. White blood cell count on last check was 18.7. Patient was previously checked for strep and Legionella antigens and was negative. Pulmonology has been following. Chest x-ray today was read as worsening appearance of the lungs. Bilateral pulmonary infiltrates were noted. Patient was on high flow 2. Acute respiratory failure with hypoxia Patient continues to have high oxygen needs. Most recent chest x-ray from 1229 was read as no significant interval change. Plan to repeat chest x-ray in a.m. On Mon 2:Aug 12, 2020 DELIA ADAM wrote Patient continues to have high oxygen needs. Most recent chest x-ray was read as no significant interval change. Interstitial and alveolar opacities remain bilaterally On Tue :Aug 11, 2020 DELIA ADAM wrote Likely secondary to recent pneumonia. Patient still requiring high flow nasal cannula, wean O2 as tolerated, pulmonary critical care has been following and managing On Mon 12:30Aug 10, 2020 DELIA ADAM wrote Patient enoc on high flow nasal cannula, wean O2 as tolerated. Chest x-ray showing findings concerning for pneumonia for which patient has been receiving treatment with Unasyn. Pulmonary critical care following On Sun :p Aug 09, 2020 DELIA ADAM wrote Patient remains on high flow, chest x-ray showing findings concerning for pneumonia On Sat 3:42p Aug 08, 2020 DELIA ADAM wrote Possibly secondary to recent pneumonia. Chest x-ray showing bilateral pulmonary infiltrates 3. TASHI (acute kidney injury) Creatinine 0.56 on last check. TASHI currently thought to be resolved On MonAug 12, 2020 DELIA ADAM wrote TASHI thought to be resolved creatinine 0.59 on last check On MonAug 11, 2020 DELIA ADAM wrote Patient with previous TASHI with creatinine up to 4.24, creatinine now 0.67 on last check. TASHI thought to be resolved On MonAug 10, 2020 DELIA ADAM wrote TASHI thought to be improved, creatinine 0.72 on last check On MonAug 09, 2020 DELIA ADAM wrote TASHI thought to be improved creatinine 0.76 on last check On Sat 3:Aug 08, 2020 DELIA ADAM wrote TASHI thought to be improved. Creatinine was previously as high as 4.24, was 0.76 on check this morning 4. Syncope Patient not thought to be reliable historian. She had previously had positive orthostatic vitals. Echocardiogram was previously performed showed an EF of 6065%. Maintain good oral hydration/intake On MonAug 12, 2020 DELIA AADM wrote Patient not thought to be reliable historian. Patient previously had some positive orthostatic vitals. Attempt to maintain good hydration. Echocardiogram was performed which showed an EF of 60 to 65% On MonAug 11, 2020 DELIA ADAM wrote Patient not thought to be reliable historian difficult to assess. No known loss of consciousness. Patient previously had some orthostatic vitals. Echocardiogram was performed which showed an EF of 60 to 65%. Patient had received fluids On MonAug 10, 2020 DELIA ADAM wrote No current complaints of lightheadedness or dizziness. However patient is a very poor historian as she is only ANO x1. Previously had positive orthostatic vitals. Echo was performed showed an EF of 60 to 65%. Patient was given fluids On MonAug 09, 2020 DELIA ADAM wrote No current complaints of lightheadedness or dizziness a little patient is not thought to be a great historian currently. She previously had previous positive orthostatic vitals. Echo had been performed which showed an EF of 60 to 65% On Sat Aug 08, 2020 DELIA ADAM wrote No current complaints of lightheadedness or dizziness. Patient had positive orthostats noted. Echocardiogram showed an EF of 60 to 65% 5. Hypokalemia Potassium level 3.4, patient was ordered replacement. On MonAug 12, 2020 DELIA ADAM wrote Potassium level low today at 3.3. Patient was ordered replacement, magnesium level was checked and was 1.6 today and was also supplemented On MonAug 11, 2020 DELIA ADAM wrote Potassium level low today at 3.4 patient was ordered replacement, recheck in a.m., check magnesium level in a.m. On MonAug 10, 2020 DELIA ADAM wrote Potassium level somewhat better overall currently 3.5. Replace as needed On MonAug 09, 2020 DELIA ADAM wrote Improvement in potassium level overall to 3.8 On MonAug 08, 2020 DELIA ADAM wrote Potassium level low at 3.4 today. Patient was ordered IV potassium replaced, check magnesium level in the a.m. 6. Hypernatremia Some continued improvement sodium level down to 144 today, continue with free water flushes On MonAug 12, 2020 DELIA ADAM wrote Some improvement in sodium level today down to 149 on increased free water flushes down, continue with free water flushes and continue to monitor sodium level On MonAug 11, 2020 DELIA ADAM wrote Sodium level 153 again today. Patient's free water flushes are being increased, follow sodium level in a.m. On MonAug 10, 2020 DELIA ADAM wrote Sodium level slightly worse today at 153. Patient on free water flushes with tube feeds. Will increase free water flushes On Sun 1:21p Aug 09, 2020 DELIA ADAM wrote Sodium level 151 on last check and was increasing. Adding free water with tube feeds Disclaimer This dictation was created using voice recognition software. Phonetic and/or minor grammatical errors may exist. eSign Date and Time Delia Adam MD Verified/Reviewed by 08/13/20 1130 [facility] Progress Note-Hospitalist [facility] PROG.INTEStacey 08-13-2020 PROG.INTEN [facility] Patient Name: ANDRE BLANCA [address] Date of : [address] [address] Unit Number: [id number] Progress Note-Adjuster And Inspector Patient Status: ADM IN Attending Doctor: Marta Horvath DO Service Date: 08/13/20 0748 Progress Note-Adjuster And Inspector Subjective Subjective: Patient answering questions about self. Patient weaned off Precedex yesterday. Patient remains on high flow oxygen. Objective Vital Signs: Vital Signs (Last) Result Date Time Pulse Ox 92 08/13 0600 B/P 148/68 08/13 0600 B/P Mean 98 08/13 0600 O2 Delivery HIGH FLOW NC 08/13 0600 O2 Flow Rate 45/50 08/13 0600 Pulse 96 08/13 0600 Temp 98.4 08/13 0200 Resp 14 08/13 0100 IandO 24 Hour Summary 08/13 0000 Intake Total 2886 Output Total 1709 Balance 1177 Intake, IV 1073 Intake, Tube 1093 Feeding Intake, Tube 720 Irrigant Output, Stool 9 Output, Urine 1700 Exam: General: Arousable answering questions about self. Heart: RRR,nl s1/s2 Lungs: Course BS bilaterally R > L; Abdomen: Soft, nt, nd, + BS, obese Extremities: No LE edema Neurologic: Answering questions about self, moving extremities x4, seems more calm and oriented today. Medications: Medications Current Sig/Antonella Start time Last Medication Dose Route Stop Time Status Admin Acetaminophen 500 MG Q6HPRN PRN 08/04 1930 AC 08/13 (TYLENOL ORAL LIQ) TUBE 0332 Albuterol Sulfate 2.5 MG Q6HPRN PRN 07/28 0030 AC (VENTOLIN/PROVENTIL INH 2.5MG/3ML INH.NEB) Albuterol/Ipratropium 3 ML Q4HRT 08/04 2030 AC 08/13 (DUONEB 0.5-3 MG/3 INH 0729 ML INH.NEB) Albuterol/Ipratropium 3 ML Q2HPRN PRN 07/28 0100 AC (DUONEB 0.5-3 MG/3 INH ML INH.NEB) Budesonide 0.5 MG BID 08/04 2100 AC 08/13 (PULMOCORT 0.5MG/2ML INH 0729 INH.NEB) Buspirone HCl 10 MG TIDWM 08/12 1200 AC 08/12 (BUSPAR TAB) TUBE 1648 Carbamazepine 200 MG TIDWM 08/05 0800 AC 08/12 (TEGRETOL TAB) TUBE 1648 Clopidogrel Bisulfate 75 MG QDAY 08/05 0900 AC 08/12 (PLAVIX TAB) TUBE 0851 Dexmedetomidine HCl 400 MCG TITRATE(SEE SHAUNA VFS) 08/07 1330 AC 08/12 (PRECEDEX VIAL) IV 0614 Sodium Chloride 96 ML (Sodium Chloride 0.9%) Docusate Sodium 100 MG BID 08/11 1230 AC 08/12 (COLACE ORAL LIQ) TUBE 0851 Enoxaparin Sodium 40 MG QDAY 07/28 0900 AC 08/12 (LOVENOX D.SYR) SC 0852 Esomeprazole 40 MG BIDAC 08/05 0700 AC 08/13 Magnesium TUBE 0616 (NEXIUM CAP (TXI)) Fluoxetine HCl 20 MG QDAY 08/05 0900 AC 08/12 (PROZAC CAP) TUBE 0851 Guaifenesin 10 ML TID 08/11 1400 AC 08/12 (ROBITUSSIN 200MG/10 TUBE 2103 ML ORAL LIQ) Haloperidol Lactate 2 MG Q4HPRN PRN 08/07 0900 AC 08/12 (HALDOL AMP) IV 0351 Heparin Sodium See Dose Q24H 08/06 0900 AC 08/06 (Porcine) Insts (1) IV 0807 (HEP-LOCK *10*UNITS/ ML IV D.SYR.PF) Heparin Sodium See Dose PRN PRN 08/05 1500 AC (Porcine) Insts (2) IV (HEP-LOCK *10*UNITS/ ML IV D.SYR.PF) Levothyroxine Sodium 0.125 MG QDAYAC 08/09 0700 AC 08/13 (SYNTHROID TAB) PO 0616 Loperamide HCl 2 MG PRN PRN 08/04 1930 AC 08/12 (IMODIUM AD ORAL TUBE 210 LIQUID UDC) Melatonin 10 MG QHS 08/09 2200 AC 08/12 (MELATONIN TAB) TUBE 2100 Menthol/Methyl 1 APPL BIDPRN PRN 07/28 0030 AC 08/11 Salicylate TP 1126 (MIHIR ALVAREZ T.CREAM) Ondansetron HCl 4 MG BIDPRN PRN 08/04 1930 AC (ZOFRAN TAB) TUBE Ondansetron HCl 4 MG Q6HPRN PRN 07/27 2100 AC 08/04 (ZOFRAN VIAL) IV 2126 Polyethylene Glycol 17 GM QDAY 08/11 1200 AC 08/12 (MIRALAX PACKT) TUBE 0851 Pravastatin Sodium 40 MG QHS 08/04 2200 AC 08/12 (PRAVACHOL TAB) TUBE 210 Pregabalin 150 MG BID 08/04 2100 AC 08/12 (LYRICA CAP) TUBE 210 Quetiapine Fumarate 100 MG QHS 08/08 2200 AC 08/12 (SEROQUEL TAB) TUBE 210 Risperidone 3 MG BID 08/09 2100 AC 08/12 (RISPERDAL TAB) TUBE 210 Sodium Chloride 4 ML QIDRT 08/10 1230 AC 08/13 (Sodium Chloride 3% INH 0729 INH.neb) Sodium Chloride See Dose Q24H 08/06 0900 AC 08/12 (Sodium Chloride Insts (3) IV 0852 0.9% FLUSH D.SYR) Sodium Chloride See Dose PRN PRN 08/05 1500 AC (Sodium Chloride Insts (4) IV 0.9% FLUSH D.SYR) Dose Instructions: (1)Heparin Sodium (Porcine) (HEP-LOCK *10*UNITS/ML IV D.SYR.PF): 50-200 UNITS (2)Heparin Sodium (Porcine) (HEP-LOCK *10*UNITS/ML IV D.SYR.PF): 50-200 UNITS (3)Sodium Chloride (Sodium Chloride 0.9% FLUSH D.SYR): 10-40 ML (4)Sodium Chloride (Sodium Chloride 0.9% FLUSH D.SYR): 10-40 ML ABG: ABG-Last Test Result Date Time Blood Gas Specimen Type ARTERIAL 08/11 538 Sample Site L RADIAL 08/11 538 Patient Temperature (C) 37.2 08/11 538 pH (7.35 - 7.45) 7.41 08/11 538 pCO2 (35 - 45 MMHG) 52.4 H 08/11 538 pO2 (80 - 100 MMHG) 71 L 08/11 538 HCO3 (22 - 26 MMOL/L) 32.5 H 08/11 538 Base Excess (-2.0 - 2.0 MML/L) 7.0 H 08/11 538 ABG O2 Sat (Measured) (90 - 100 %) 92.7 08/11 538 ABG Oximetry (%) 94 08/11 538 ABG O2 Content (15.7 - 21.6 mL/dL) 11.9 L 08/11 538 ABG Hemoglobin (10 - 16 GM/DL) 9.1 L 08/11 538 ABG Reduced Hgb (0 - 5 %) 6.8 H 08/11 538 ABG Carboxyhemoglobin (0 - 10 %) 0.2 08/11 538 ABG Methemoglobin (0.4 - 1.5 %) 0.3 L 08/11 538 ABG O2 Capacity (mL/dL) 12.6 08/11 538 Doug Test POSITIVE 08/11 538 Sodium (136 - 148 mmol/L) 147 08/11 538 Potassium (3.5 - 5.0 MMOL/L) 3.2 L 08/11 538 Glucose (60 - 80 MG/DL) 174 H 08/11 538 Lactate (0.40 - 2.00 MMOL/L) 0.94 08/11 538 Patient Equipment HIGH FLOW CANNULA 08/11 538 Liter Flow (L/M) 45.00 08/11 538 FiO2 % (%) 52 08/11 538 Lab Results: Lab 24hr (CBC/BMP Fishbone) 08/13/20 0500: [Embedded Image Not Available] Anion Gap LESS THAN 3 L, Est GFR ( Amer) Greater than 60, Est GFR (Non-Af Amer) Greater than 60, BUN/Creatinine Ratio 20, Glucose 185 H, Total Calcium 8.0 L, Total Bilirubin 0.30, AST 43 H, ALT 29, Alkaline Phosphatase 170 H, Serum Total Protein 5.2 L, Albumin 1.8 L, Globulin 3.4, Albumin/Globulin Ratio 0.5 L, RBC 2.73 L, MCV 98.9, MCHC 30.4 L, RDW 15.9 H, MPV 11.5, Seg Neutrophils % 84.0 H, Lymphocytes % 9.0 L, Monocytes % 2.0, Eosinophils % 5.0, Neutrophils # 9.24 H, Lymphocytes # 0.99, Monocytes # 0.22, Eosinophils # 0.55 H, Nucleated RBCs 0.0, Platelet Estimate ADEQUATE, Platelet Morphology LARGE FORMS NOTED, Polychromasia 1+, Hypochromasia 2+ Assessment/Plan Assessment/Problem List: 1. Acute hypoxemic respiratory failure 70 y/o with PMHx of COPD, HFpEF, CVA, and Former Tobacco Abuse presented to [facility] emergency department on 07/27 secondary to Syncope and was admitted to telemetry. Our service was consulted on 08/04 secondary to Worsening Hypoxemia requiring HFNC. She is being transferred to the D-ICU. ASSESSMENT: - LLL Aspiration Pneumonia - Acute Hypoxemic Respiratory Failure 2/2 above - Nausea and Vomitting - Encephalopathy - TASHI 2/2 Dehydration - HFpEF (EF 60-65% per Echo 07/2020) - Tobacco Abuse, in Remission - Obesity - Hx of COPD (no PFTs on file) - Hx of CVA -History of multiple falls -History of psychiatric illness PLAN: * Currently oxygenating adequately on 45L/50% FiO2 via HFNC. Continue to wean with goal > SpO2 88% * CXR showed bilateral airspace disease left greater than right. * Weaned off of Precedex. Patient with long history of psychiatric illness. Psychiatry help appreciated. * No documented fevers. Mild leukocytosis. Urine Ag/SARS-CoV-2 negative. * Finished IV Unasyn (Day #02/17) for aspiration pneumonia, watch off antibiotics. White count normalized today. * Abdominal X-ray ==> neg for ileus/obstruction, NG tube in for feeds. * c/w TFs , started on free water for (hypernatremia) increase to 250cc q4H, hyponatremia improving. * Continue scheduled and PRN Duonebs. Add Budesonide. Resume home Symbicort upon discharge * Continue Incentive Spirometry. Add Acapella Flutter Valve and Hypertonic Saline Nebs for proper pulmonary toilet; add guaifenesin * improved renal function w fluids, normalized by most recent testing. * Replace electrolytes. 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 Patient spent time at the [facility] according to son, that is the facility that she met her . * History of multiple falls in the past. * F/E/N: HL fluids/replete lytes as needed /c/w TFs * GI/DVT Prophylaxis: PO nexium/Lovenox * CODE STATUS: DNR Comfort Care arrest, discussed with son Giana Blanca, area code . Did also discuss if patient is functionally declining, consider changing CODE STATUS to comfort only. Patient is requiring higher oxygen than yesterday. Will watch carefully with full medical therapy. Patient son was updated on 08/11/2020. Please see orders. Total care time 35 minutes Disclaimer This dictation was created using voice recognition software. Phonetic and/or minor grammatical errors may exist. eSign Date and Time Jayesh Loera MD Verified/Reviewed by 08/13/20 0750 [facility] Progress Note-Adjuster And Inspector [facility] PROG.PSYCHon 08-13-2020 PROG.PSYCH [facility] Patient Name: ANDRE BLANCA [address] Date of : [address] [place], [place] [address] Unit Number: [id number] Progress Note-Psych Patient Status: DIS IN Attending Doctor: Marta Horvath DO Service Date: 08/13/20 0812 Progress Note - PSYCH Subjective: (2 ROS minimum) She says she is happy and anxious and worried. She says she slept through most of the night. Objective: General appearance is alert. She is oriented to person, 2020, and says she is in [place] in a medical facility. She feels happy, anxious, and worried. Nursing report is she slept during the day and did not sleep well at night. She has been able to stand up with the help of staff. Concentration is fair. Thinking is still confused. Memory is a little better. She remembers that her father had loneliness and anxiety and her mother had major depression. Today she remembers that she is a . Current Medications: Medications Current Sig/Antonella Start time Last Medication Dose Route Stop Time Status Admin Acetaminophen 500 MG Q6HPRN PRN 08/04 1930 AC 08/13 (TYLENOL ORAL LIQ) TUBE 0332 Albuterol Sulfate 2.5 MG Q6HPRN PRN 07/28 0030 AC (VENTOLIN/PROVENTIL INH 2.5MG/3ML INH.NEB) Albuterol/Ipratropium 3 ML Q4HRT 08/04 2030 AC 08/13 (DUONEB 0.5-3 MG/3 INH 0729 ML INH.NEB) Albuterol/Ipratropium 3 ML Q2HPRN PRN 07/28 0100 AC (DUONEB 0.5-3 MG/3 INH ML INH.NEB) Budesonide 0.5 MG BID 08/04 2100 AC 08/13 (PULMOCORT 0.5MG/2ML INH 0729 INH.NEB) Buspirone HCl 10 MG TIDWM 08/12 1200 AC 08/12 (BUSPAR TAB) TUBE 1648 Carbamazepine 200 MG TIDWM 08/05 0800 AC 08/12 (TEGRETOL TAB) TUBE 1648 Clopidogrel Bisulfate 75 MG QDAY 08/05 0900 AC 08/12 (PLAVIX TAB) TUBE 0851 Dexmedetomidine HCl 400 MCG TITRATE(SEE SHAUNA VFS) 08/07 1330 AC 08/12 (PRECEDEX VIAL) IV 0614 Sodium Chloride 96 ML (Sodium Chloride 0.9%) Docusate Sodium 100 MG BID 08/11 1230 AC 08/12 (COLACE ORAL LIQ) TUBE 0851 Enoxaparin Sodium 40 MG QDAY 07/28 0900 AC 08/12 (LOVENOX D.SYR) SC 0852 Esomeprazole 40 MG BIDAC 08/05 0700 AC 08/13 Magnesium TUBE 0616 (NEXIUM CAP (TXI)) Fluoxetine HCl 20 MG QDAY 08/05 0900 AC 08/12 (PROZAC CAP) TUBE 0851 Guaifenesin 10 ML TID 08/11 1400 AC 08/12 (ROBITUSSIN 200MG/10 TUBE 2103 ML ORAL LIQ) Haloperidol Lactate 2 MG Q4HPRN PRN 08/07 0900 AC 08/12 (HALDOL AMP) IV 0351 Heparin Sodium See Dose Q24H 08/06 0900 AC 08/06 (Porcine) Insts (1) IV 0807 (HEP-LOCK *10*UNITS/ ML IV D.SYR.PF) Heparin Sodium See Dose PRN PRN 08/05 1500 AC (Porcine) Insts (2) IV (HEP-LOCK *10*UNITS/ ML IV D.SYR.PF) Levothyroxine Sodium 0.125 MG QDAYAC 08/09 0700 AC 08/13 (SYNTHROID TAB) PO 0616 Loperamide HCl 2 MG PRN PRN 08/04 1930 AC 08/12 (IMODIUM AD ORAL TUBE 2100 LIQUID UDC) Melatonin 10 MG QHS 08/09 2200 AC 08/12 (MELATONIN TAB) TUBE 2100 Menthol/Methyl 1 APPL BIDPRN PRN 07/28 0030 AC 08/11 Salicylate TP 1126 (MIHIR ALVAREZ T.CREAM) Ondansetron HCl 4 MG BIDPRN PRN 08/04 1930 AC (ZOFRAN TAB) TUBE Ondansetron HCl 4 MG Q6HPRN PRN 07/27 2100 AC 08/04 (ZOFRAN VIAL) IV 2126 Polyethylene Glycol 17 GM QDAY 08/11 1200 AC 08/12 (MIRALAX PACKT) TUBE 0851 Potassium 50 MEQ ONCE ONE 08/13 0845 AC Bicarbonate/Citric TUBE 08/13 0846 Acid (Klor-con-Ef 25MEQ TAB.EF (ORANGE)) Potassium Chloride 40 MEQ ONCE ONE 08/13 0845 AC (potassium (KCL) IV 08/13 1244 CHLORIDE VIAL) Sodium Chloride 250 ML (Sodium Chloride 0.9%) Pravastatin Sodium 40 MG QHS 08/040 AC 08/12 (PRAVACHOL TAB) TUBE 210 Pregabalin 150 MG BID 08/04 2100 AC 08/12 (LYRICA CAP) TUBE 210 Quetiapine Fumarate 100 MG QHS 08/080 AC 08/12 (SEROQUEL TAB) TUBE 210 Risperidone 3 MG BID 08/09 2100 AC 08/12 (RISPERDAL TAB) TUBE 210 Sodium Chloride 4 ML QIDRT 08/10 1230 AC 08/13 (Sodium Chloride 3% INH 0729 INH.neb) Sodium Chloride See Dose Q24H 08/06 0900 AC 08/12 (Sodium Chloride Insts (3) IV 0852 0.9% FLUSH D.SYR) Sodium Chloride See Dose PRN PRN 08/05 1500 AC (Sodium Chloride Insts (4) IV 0.9% FLUSH D.SYR) Dose Instructions: (1)Heparin Sodium (Porcine) (HEP-LOCK *10*UNITS/ML IV D.SYR.PF): 50-200 UNITS (2)Heparin Sodium (Porcine) (HEP-LOCK *10*UNITS/ML IV D.SYR.PF): 50-200 UNITS (3)Sodium Chloride (Sodium Chloride 0.9% FLUSH D.SYR): 10-40 ML (4)Sodium Chloride (Sodium Chloride 0.9% FLUSH D.SYR): 10-40 ML Assessment/Plan Conclusion 1. Bipolar 1 disorder, mixed, moderate She appears less confused on the lower dose of BuSpar 10 mg 3 times daily. We should keep her off the Elavil at night. Because of her episodes of agitation in the hospital we should continue Tegretol 200 mg 3 times daily, Prozac 20 mg a day, Seroquel 100 mg at night, Risperdal 3 mg twice daily, melatonin 10 mg nightly, and Haldol 2 mg IV as needed. She has been taken off the Precedex. She will need further reorientation and support. Ongoing Stable Problems Problems not specifically addressed in the above plan are stable and do not warrant adjustment of the current method of therapy. Disclaimer This dictation was created using voice recognition software. Phonetic and/or minor grammatical errors may exist. eSign Date and Time Milind Gates MD Verified/Reviewed by 08/24/20 0743 [facility] Progress Note-Psych [facility] 08-13-2020 PT Progress Note [facility] PTPN Physical Therapy Inpatient Treatment Note Medical Diagnosis: 1. Acute hypoxemic respiratory failure 2. Syncope 3. Hypothyroidism multiple rib fxs Demographics: Age: 70Y Gender: Female Primary Language: Estonian Preferred Language: Estonian Rehabilitation Precautions/Restrictio ns: NG tube, 4-point restraints, high flow NC, SUBJECTIVE Patient Report: "I remember you, you're doctor Jerry." Pt exhibiting confusion, but able to follow commands better this date. Patient/Caregiver Goals: None stated Pain: Patient currently without complaints of pain. OBJECTIVE General Observation: Pt in bed, agreeable. Nursing present for session to assist w/ pericare d/t incontinent episode. Functional Activities After Today's Session: Transfers: Mod A x1-2 for supine > sit. Fair sitting balance. Patient transferred sit to/from stand requiring moderate assistance of 1 person. Patient used the following equipment: Bed rails. Arms of chair. WW Transfers from EOB and chair this date. WW for support, fatigues w/ longer duration standing bouts. Locomotion/Ambulation: Patient was minimal assist with gait/ambulation of 1 person for 3 feet for bed > chair . Patient requires the following assistive device(s): Rolling walker. Mix of fwd and side stepping to ambulate bed > chair, nursing assist w/ line management, cues and assist for WW management and safety. Fatigued quickly. Stairs: Not assessed. Curb Negotiation: Not assessed. AM-PAC Basic Mobility: Turning Over in Bed: A lot of difficulty Sitting/Standing Chair with Arms: A lot of difficulty Lying on Back to Sitting on Side of Bed: A lot of difficulty Moving To/From Bed to Chair: A lot of help needed Walking in Hospital Room: A lot of help needed [facility] PATIENT NAME: ANDRE BLANCA [facility] Dr. Andrea MEDICAL REC #: [id number] [place] [address] ADMIT DATE: 07/27/20 SERVICE DATE: 08/13/20 Physical Therapy Progress Note ATTENDING PHY: Marta Horvath DO Climbing 3-5 Steps with Railing: Total assistance needed Raw Score = 11 , AM-PAC t-Scale Score = 33.86 and G-Code Modifier = CL Vital Signs: Vitals: Oxygen Saturation: 89 % Interventions: Gait Training: Bed mobility, EOB sitting balance, multiple transfers w/ standing bouts at EOB/chair, short ambulation bout for bed > chair. Pain Reassessment: No significant change in pain during session. Education: Education Provided: Precautions. Plan of care. Bed mobility. Functional transfers. Safety. Equipment. Gait. Home exercise/activity plan. Audience: Patient. Mode: Explanation. Demonstration. Response: Needs practice. Needs reinforcement. ASSESSMENT Response to Visit: Fair, pt better able to follow commands, requires hands on assist, high fall risk. Recommending SNF for slower paced therapies. Activity/Participation Problem List and Goals: No updates at this time. Progress Toward Goals: TREATMENT GOAL REVIEW: 1. Pt transfer MOD I - Not Met: ONgoing 2. Pt ambulate at least 50 feet WW MOD I - Not Met Ongoing 3. Demo independence with LE thex for endurance and strengthening - Not Met ONgoing Time frame to achieve treatment goal(s): 2 weeks PLAN Treatment Frequency, Duration and Interventions: Physical Therapy is recommended for 5x/week x2 weeks Physical Therapy treatment is to include: gait, transfes, endurance, balance, safety Recommended Physical Therapy Follow Up: Upon acute care discharge, the following is currently recommended: Inpatient Physical Therapy, LESS THAN 60 minutes per day. Recommended Equipment: Recommended Consults: Development of Plan of Care: There was no change to plan of care today. If there are any questions regarding this service, please contact the Acute Therapy Department at extension [phone] [facility] PATIENT NAME: ANDRE BLANCA [facility] Dr. Andrea MEDICAL REC #: [id number] [place] [address] ADMIT DATE: 07/27/20 SERVICE DATE: 08/13/20 Physical Therapy Progress Note ATTENDING DAMIAN: Marta Horvath DO Location of Patient at End of Therapy Session: In chair, chair alarm in place, call light within reach Services: Total Billed: 30 minutes (Timed: 30, Untimed: 0) 30.00 Timed: [14995] GAIT TRAIN EA 15 MIN 0.00 Untimed: [] PT Treatment- General ORDER Signed by: Michel Cooper PTA 08/13/2020 13:26:12 - CoSigned By: Ioana Holden, 08/13/2020 3:49:[address] [facility] PATIENT NAME: ANDRE BLANCA [facility] Dr. Andrea MEDICAL REC #: [id number] [place] [address] ADMIT DATE: 07/27/20 SERVICE DATE: 08/13/20 Physical Therapy Progress Note ATTENDING PHY: Marta Horvath DO Normal [facility] BMPon 08-12-2020 Anion gap [Moles/Vol] 3 mmol/L Low 5-16 [facility] Comment on above: Order Comment: Campu s: M Performed By: #### L 500.57026, L500.50620, L500.68910, L500.99528 ####[facility] [id number] [place], [place] [address]Wq# [phone] Calcium [Mass/Vol] 7.9 mg/dL Low 8.5-10.5 [facility] Comment on above: Order Comment: Campu s: M Result Comment: NOTE NEW NORMAL RANGE DUE TO REAGENT CHANGE Performed By: #### L 500.39410, L500.03635, L500.65898, L500.16808 ####[facility] [id number] [place], [place] [address]Tg# [phone] Chloride [Moles/Vol] 110 mmol/L High 98-107 [facility] Comment on above: Order Comment: Campu s: M Performed By: #### L 500.68838, L500.37753, L500.44314, L500.43726 ####[facility] [id number] [place], [place] [address]Ps# [phone] CO2 [Moles/Vol] 36.0 mmol/L High 21-32 [facility] Comment on above: Order Comment: Campu s: M Performed By: #### L 500.71966, L500.30610, L500.37051, L500.01904 ####[facility] [id number] [place], [place] [address]Ao# [phone] Creatinine [Mass/Vol] 0.59 mg/dL Normal 0.510-0.950 [facility] Comment on above: Order Comment: Campu s: M Result Comment: Geraldine ents receiving either N-Acetylcysteine (NAC) or Metamizole prior to venipuncture, may have falsely depressed results. Performed By: #### L 500.70934, L500.37433, L500.08897, L500.49056 ####[facility] [id number] [place], [place] [address]Sk# [phone] Glucose [Mass/Vol] 163 mg/dL High 70-100 [facility] Comment on above: Order Comment: Campu s: M Result Comment: 70-1 00- Normal Fasting; 100-125 Impaired Fasting; greater than 126 on more than one result- Diabetes. ADA guidelines. Results may be falsely elevated after the administration of Sulfapyridine. Results may be falsely depressed after the administration of Sulfasalazine. Performed By: #### L 500.46160, L500.85083, L500.31538, L500.55142 ####[facility] [id number] [place], [place] [address]So# [phone] Potassium [Moles/Vol] 3.3 mmol/L Low 3.5-5.1 [facility] Comment on above: Order Comment: Campu s: M Performed By: #### L 500.23982, L500.15570, L500.21506, L500.77707 ####[facility] [id number] [place], [place] [address]Tr# [phone] Sodium [Moles/Vol] 149 mmol/L High 136-145 [facility] Comment on above: Order Comment: Campu s: M Performed By: #### L 500.61916, L500.49340, L500.28304, L500.49635 ####[facility] [id number] [place], [place] [address]Zz# [phone] Urea nitrogen [Mass/Vol] 13 mg/dL Normal 7- [facility] Comment on above: Order Comment: Campu s: M Performed By: #### L 500.62888, L500.34771, L500.87778, L500.22191 ####[id number] [place], [place] [address]Xu# [phone] Urea nitrogen/Creatinine [Mass ratio] 22 mg/mg Normal 15- [facility] Comment on above: Order Comment: Campu s: M Performed By: #### L 500.50975, L500.12683, L500.25364, L500.52028 ####[address] [address]Ab# [phone] CBC W/DIFFon 08-12-2020 BAND ABS 0.14 K/CU MM Normal [facility] Comment on above: Order Comment: Campu s: M Performed By: #### L 200.89613 ####[address] [address]Qn# [phone] Band form neutrophils/100 WBC (Bld) 1.0 % Normal 0-7 [facility] Comment on above: Order Comment: Campu s: M Performed By: #### L 200.60575 ####[facility] [id number] [place] [address]Ov# [phone] EOS ABS 0.97 K/CU MM High 0-0.5 [facility] Comment on above: Order Comment: Campu s: M Performed By: #### L 200.22979 ####[facility] [id number] [place] [address]Mf# [phone] Eosinophils/100 WBC (Bld) 7.0 % High 0-5 [facility] Comment on above: Order Comment: Campu s: M Performed By: #### L 200.21365 ####[facility] [id number] [place] [id number]# [phone] HYPO 2+ Normal [facility] Comment on above: Order Comment: Campu s: M Performed By: #### L 200.23789 ####[facility] [id number] [place], [place] [id number]# [phone] Lymphocytes (Bld) [#/Vol] 0.83 K/CU MM Low 0.9-4.4 [facility] Comment on above: Order Comment: Campu s: M Performed By: #### L 200.61064 ####[place] [address]Ph# [phone] Lymphocytes/100 WBC (Bld) 6.0 % Low 20-40 [facility] Comment on above: Order Comment: Campu s: M Performed By: #### L 200.67473 ####[facility] [id number] [place], [place] [id number]# [phone] META % 1.0 % Normal [facility] Comment on above: Order Comment: Campu s: M Performed By: #### L 200.40850 ####[facility] [id number] [place], [place] [address]Ph# [phone] META ABS 0.14 K/CU MM Normal [facility] Comment on above: Order Comment: Campu s: M Performed By: #### L 200.96994 ####[facility] [id number] [place], [place] [address]Ph# [phone] MONO ABS 0.28 K/CU MM Normal 0.1-1.1 [facility] Comment on above: Order Comment: Campu s: M Performed By: #### L .54155 ####[facility] [id number] [place], [place] [address]Ph# [phone] Monocytes/100 WBC (Bld) 2.0 % Normal 2-10 M [facility] Comment on above: Order Comment: Campu s: M Performed By: #### L 200.76403 ####[facility] [id number] [place], [place] [address]Hk# [phone] MYELO ABS 0.28 K/CU MM Normal [facility] Comment on above: Order Comment: Campu s: M Performed By: #### L 200.63206 ####[facility] [id number] [place] [address]Pb# [phone] MYELOCYTE % 2.0 % Normal [facility] Comment on above: Order Comment: Campu s: M Performed By: #### L 200.55780 ####[facility] [id number] [place] [address]Rb# [phone] NEUTROPHIL ABS 11.18 K/CU MM High 2.0-8.3 [facility] Comment on above: Order Comment: Campu s: M Performed By: #### L 200.11279 ####[facility] [id number] [place] [address] 83[address]Mb# [phone] Neutrophils/100 WBC (Bld) 81.0 % High 45-75 [facility] Comment on above: Order Comment: Campu s: M Performed By: #### L 200.78910 ####[facility] [id number] [place] [address]Wk# [phone] Platelets (Bld) [#/Vol] ADEQUATE Normal [facility] Comment on above: Order Comment: Campu s: M Performed By: #### L 200.79141 ####[facility] [id number] [place] [address] 199[address]By# [phone] PLT MORPH LARGE FORMS NOTED Normal [facility] Comment on above: Order Comment: Campu s: M Performed By: #### L 200.72597 ####[facility] [id number] [place] [address] 248[address]Rl# [phone] POLY 1+ Normal [facility] Comment on above: Order Comment: Campu s: M Performed By: #### L 200.88509 ####[facility] [id number] [place], [place] [address]Wl# [phone] TOXIC GRAN PRESENT Normal [facility] Comment on above: Order Comment: Campu s: M Performed By: #### L 200.90496 ####[facility] [id number] [place], [place] [address]Xf# [phone] Erythrocyte distribution width (RBC) [Ratio] 15.9 % High 11-14.5 [facility] Comment on above: Order Comment: Campu s: M Performed By: #### L 200.37938 ####[address] [address]Vs# [phone] Hematocrit (Bld) [Volume fraction] 27.2 % Low 35.0-47.0 [facility] Comment on above: Order Comment: Campu s: M Performed By: #### L 200.10551 ####[address] [address]Ha# [phone] Hemoglobin (Bld) [Mass/Vol] 8.3 g/dL Low 11.5-15.5 [facility] Comment on above: Order Comment: Campu s: M Performed By: #### L 200.17636 ####[address] [address]Ie# [phone] MCHC (RBC) [Mass/Vol] 30.5 g/dL Low 32.0-36.0 [facility] Comment on above: Order Comment: Campu s: M Performed By: #### L 200.39294 ####[facility] [id number] [place] [address] 87[address]Vk# [phone] MCV (RBC) [Entitic vol] 97.5 fL Normal 80.0-99.0 [facility] Comment on above: Order Comment: Campu s: M Performed By: #### L 200.55488 ####[facility] [id number] [place] [address]Iy# [phone] Nucleated RBC/100 WBC (Bld) [Ratio] 0.1 % Normal Less than 1 [facility] Comment on above: Order Comment: Campu s: M Performed By: #### L 200.87202 ####[facility] [id number] [place], [place] [address]Yi# [phone] Platelet mean volume (Bld) [Entitic vol] 11.9 fL Normal 9.4-12.4 [facility] Comment on above: Order Comment: Campu s: M Performed By: #### L 200.20828 ####[facility] [id number] [place], [place] [address]Ky# [phone] Platelets (Bld) [#/Vol] 174 K/CU MM Normal 150-450 [facility] Comment on above: Order Comment: Campu s: M Performed By: #### L 200.17270 ####[facility] [id number] [place] [address]Uw# [phone] RBC (Bld) [#/Vol] 2.79 M/CU MM Low 3.90-5.30 [facility] Comment on above: Order Comment: Campu s: M Performed By: #### L 200.75936 ####[facility] [id number] [place], [place] [address]Ws# [phone] WBC (Bld) [#/Vol] 13.8 K/CUMM High 4.5-11.0 [facility] Comment on above: Order Comment: Campu s: M Performed By: #### L 200.04827 ####[facility] [id number] [place] [address]Ts# [phone] CONS.PSYCHon 08-12-2020 CONS.PSYCH [facility] Patient Name: ANDRE BLANCA [address] [facility] [address] Date of : [address] [address] Unit Number: [id number] CONSULTATION-PSYCH Patient Status: DIS IN Attending Doctor: Marta Horvath DO Service Date: 08/12/20 0842 CONSULTATION-PSYCH Referring Physician Jayesh Loera MD Consulted Provider Milind Gates MD Source of Information Patient Reason for Consult Patient with extensive psychiatric history needs medication regulation. Living Situation Home - Independent History of Present Illness This is a 70-year-old woman who I am being asked to see because of needing medication regulation for her extensive psychiatric history. She was admitted to the hospital on July 27 after she was brought to the emergency room because of syncope at home. She was diagnosed with acute hypoxemic respiratory failure. She also had aspiration pneumonia, nausea and vomiting, encephalopathy, and acute kidney injury. She has a history of stroke. She has COPD. Recently in the hospital she has become agitated yelling out, kicking her feet, trying to pull at lines. Because of this she has been on Precedex. The story she gives me is different. She says that she is here because she hurt her ankle from falling down. She says she fell because she was running on a wet floor and slipped. She denies losing consciousness. She says she falls down once or twice a month. At home she was on multiple medications including Elavil 100 mg at night, BuSpar 20 mg 3 times daily, Tegretol 200 mg 3 times daily, Prozac 20 mg a day, Risperdal 3 mg twice daily. She says that she was taking all of these medications to elevate her mood. She has not seen a psychiatrist recently but she says she has been getting her medications from Dr. Jacobsen. She apparently has been going to the [place] [facility]. She has been sleeping poorly at night, and her appetite has also been poor. She denies feeling depressed, but says that she has anxiety which can get bad. I saw her in the hospital in 2012, and at that time she had bipolar disorder mixed type moderate. CT scan of the brain showed atrophy and remote ischemic changes with no acute abnormalities. Review of Systems She has pain in her ankle and toes. She has been sleeping poorly and her appetite has been poor. Vital Signs Vital Signs (Last) Result Date Time Pulse Ox 99 08/12 700 B/P 127/69 08/12 700 B/P Mean 83 08/12 700 O2 Delivery HIGH FLOW NC 08/12 700 O2 Flow Rate 40L75% 08/12 700 Pulse 97 12/30 0700 Resp 18 12/30 0700 Temp 99.0 08/12 0530 Mental Status Exam This is a tired looking woman who is pleasant and cooperative and answers questions as well as she can. Physical strength has been decreased. She is oriented to person but says it is September 1927 and she is in [place]. At times in the hospital she has been oriented to year and being in the hospital. Memory is impaired. She denies any thoughts of suicide. She denies auditory or visual hallucinations. Her affect is flat. Her mood is anxious. Speech is slow. Thought processes are confused. Associations are limited. Concentration is low. Language is normal. Fund of knowledge is poor but she can tell me the name of the president. Insight and judgment appear to be limited. Past Medical History Chronic knee pain History of CVA, some difficulty swallowing some foods however otherwise no residual deficits COPD, not on home O2 Hypothyroidism Irritable bowel syndrome Migraines Fibromyalgia Hypotension, as a cause of recurrent syncope Past Surgical History Hysterectomy Right arm surgery Ingrown toenail Cholecystectomy Family History She denies any family history of psychiatric problems. FATHER, , Age 60+. FH: emphysema Gangrene MOTHER, , Age 60+. FH: alcoholism Allergies Coded Allergies: BUTORPHANOL (01/17/13) IBUPROFEN (06/03/13) OXYCODONE (01/17/13) SALICYLAMIDE (UNSURE IF THIS IS AN ALLERGY 01/17/13) SULFA (SULFONAMIDE ANTIBIOTICS) (01/17/13) SUMATRIPTAN (01/17/13) XANTHINES (01/17/13) butorphanol tartrate (From STADOL) (06/03/13) hydrocodone bit (From VICODIN) (06/03/13) hydromorphone HCl (From DILAUDID) (06/03/13) ACETAMINOPHEN (From PERCOCET) (NAUSEA/VOMITING 06/21/13) ASPIRIN (HEART RACES/EARS RING 06/21/13) oxycodone HCl (From PERCOCET) (NAUSEA/VOMITING 06/21/13) prochlorperazine edisylate (From COMPAZINE) (SEVER HEAD PAIN, VOMITING 06/21/13) prochlorperazine maleate (From COMPAZINE) (SEVER HEAD PAIN, VOMITING 06/21/13) Home Medications Acetaminophen* (Tylenol 500MG Tab*) 500 MG TABLET 500 MG PO Q6HPRN PRN PAIN, Ref 0 ( Reported) Entered as Reported by GASTON URIBE on 04/16/171952 Last Action: Reviewed on 08/04/201617 by GLORIA SAXENA Albuterol Sulfate (Proair Hfa Inhaler) 8.5 GM HFA.AER.AD 1-2 PUFF INH QIDPRN PRN SHORTNESS OF BREATH, Ref 0 (Reported) Entered as Reported by GASTON URIBE on 04/16/171950 Last Action: Reviewed on 08/04/201617 by GLORIA SAXENA Amitriptyline HCl (Elavil) (Amitriptyline HCl 100MG Tab) 100 MG TAB 100 MG PO QHS #30 TAB, Ref 0 Prescribed by FEROZ LUNA on 02/26/19 Last Action: Reviewed on 08/04/201617 by GLORIA SAXENA Budesonide/Formoterol Fum (Symbicort 160/4.5 Mcg INH) 1 PUFF HFA.AER.AD 1 PUFF INH BID, Ref 0 (Reported) Entered as Reported by GASTON URIBE on 04/16/171949 Last Action: Reviewed on 08/04/201617 by GLORIA SAXENA busPIRone HCL* (Buspar 10MG Tab*) 10 MG TABLET 20 MG PO TIDWM, Ref 0 (Reported) Entered as Reported by GASTON URIBE on 04/16/171951 Last Action: Reviewed on 08/04/201617 by GLORIA SAXENA carBAMazepine* (Tegretol 200MG Tab*) 200 MG TABLET 200 MG PO TIDWM, Ref 0 (Reported) Entered as Reported by GASTON URIBE on 04/16/171949 Last Action: Reviewed on 08/04/201617 by GLORIA SAXENA Clopidogrel Bisulfate* (Plavix 75MG Tab*) 75 MG TABLET 75 MG PO QDAY, Ref 0 (Reported) Entered as Reported by GASTON URIBE on 04/16/171951 Last Action: Reviewed on 08/04/201617 by GLORIA SAXENA Fluoxetine HCl* (Prozac 20MG Cap*) 20 MG CAPSULE 20 MG PO QDAY, Ref 0 (Reported) Entered as Reported by GASTON URIBE on 04/16/171950 Last Action: Reviewed on 08/04/201617 by GLORIA SAXENA Levothyroxine Sodium* (Synthroid 0.125MG Tab*) 125 MCG TABLET 0.125 MG PO QDAYAC, Ref 0 (Reported) Entered as Reported by GASTON URIBE on 10/24/18 1319 Last Action: Reviewed on 08/04/201617 by GLORIA SAXENA Melatonin* (Melatonin Tab*) 3 MG TABLET 3 MG PO QHS, Ref 0 (Reported) Entered as Reported by GASTON URIBE on 10/24/18 1322 Last Action: Reviewed on 08/04/201617 by GLORIA SAXENA Methyl Salicylate/Menthol* (Bengay Greaseless Cream*) 57 GM CREAM..G. 1 APPL TP BIDPRN PRN PAIN, Ref 0 (Reported) APPLY TO NECK Entered as Reported by GASTON URIBE on 04/16/171949 Last Action: Reviewed on 08/04/201617 by GLORIA SAXENA Ondansetron HCl* (Zofran 4MG Tab*) 4 MG TABLET 4 MG PO BIDPRN PRN NAUSEA, Ref 0 ( Reported) Entered as Reported by GASTON URIBE on 10/24/18 131 Last Action: Reviewed on 08/04/201617 by GLORIA SAXENA Pantoprazole* (Protonix 40MG Tab*) 40 MG TABLET.DR 40 MG PO BIDAC, Ref 0 (Reported) Entered as Reported by GASTON URIBE on 04/16/171950 Last Action: Reviewed on 08/04/201617 by GLORIA SAXENA Pravastatin Sodium* (Pravachol 40MG Tab*) 40 MG TABLET 40 MG PO QHS, Ref 0 (Reported) Entered as Reported by COSME GARCIA on 02/22/19 161 Last Action: Reviewed on 08/04/201617 by GLORIA SAXENA Pregabalin* (Lyrica Cap*) 150 MG CAPSULE 150 MG PO BID, Ref 0 (Reported) Entered as Reported by COSME GARCIA on 02/22/19 161 Last Action: Reviewed on 08/04/201617 by GLORIA SAXENA Risperidone* (Risperdal 3MG Tab*) 3 MG TABLET 3 MG PO BID, Ref 0 (Reported) Entered as Reported by COSME GARCIA on 02/22/19 161 Last Action: Reviewed on 08/04/201617 by GLORIA SAXENA Inpatient Medications Medications Current Sig/Antonella Start time Last Medication Dose Route Stop Time Status Admin Acetaminophen 500 MG Q6HPRN PRN 08/04 1930 AC 08/12 (TYLENOL ORAL LIQ) TUBE 0437 Albuterol Sulfate 2.5 MG Q6HPRN PRN 07/28 0030 AC (VENTOLIN/PROVENTIL INH 2.5MG/3ML INH.NEB) Albuterol/Ipratropium 3 ML Q4HRT 08/04 2030 AC 08/12 (DUONEB 0.5-3 MG/3 INH 0754 ML INH.NEB) Albuterol/Ipratropium 3 ML Q2HPRN PRN 07/28 0100 AC (DUONEB 0.5-3 MG/3 INH ML INH.NEB) Budesonide 0.5 MG BID 08/04 2100 AC 08/12 (PULMOCORT 0.5MG/2ML INH 0754 INH.NEB) Buspirone HCl 20 MG TIDWM 08/05 0800 AC 08/12 (BUSPAR TAB) TUBE 0851 Calcium Gluconate 10 ML ONCE ONE 08/12 0800 AC (Calcium GLUConate IV 08/12 0905 10% VIAL) Sodium Chloride 100 ML (Sodium Chloride 0.9%) Carbamazepine 200 MG TIDWM 08/05 0800 AC 08/12 (TEGRETOL TAB) TUBE 0852 Clopidogrel Bisulfate 75 MG QDAY 08/05 0900 AC 08/12 (PLAVIX TAB) TUBE 0851 Dexmedetomidine HCl 400 MCG TITRATE(SEE SHAUNA VFS) 08/07 1330 AC 08/12 (PRECEDEX VIAL) IV 0614 Sodium Chloride 96 ML (Sodium Chloride 0.9%) Docusate Sodium 100 MG BID 08/11 1230 AC 08/12 (COLACE ORAL LIQ) TUBE 0851 Enoxaparin Sodium 40 MG QDAY 07/28 0900 AC 08/12 (LOVENOX D.SYR) SC 0852 Esomeprazole 40 MG BIDAC 08/05 0700 AC 08/12 Magnesium TUBE 0614 (NEXIUM CAP (TXI)) Fluoxetine HCl 20 MG QDAY 08/05 0900 AC 08/12 (PROZAC CAP) TUBE 0851 Guaifenesin 10 ML TID 08/11 1400 AC 08/12 (ROBITUSSIN 200MG/10 TUBE 0851 ML ORAL LIQ) Haloperidol Lactate 2 MG Q4HPRN PRN 08/07 0900 AC 08/12 (HALDOL AMP) IV 0351 Heparin Sodium See Dose Q24H 08/06 0900 AC 08/06 (Porcine) Insts (1) IV 0807 (HEP-LOCK *10*UNITS/ ML IV D.SYR.PF) Heparin Sodium See Dose PRN PRN 08/05 1500 AC (Porcine) Insts (2) IV (HEP-LOCK *10*UNITS/ ML IV D.SYR.PF) Levothyroxine Sodium 0.125 MG QDAYAC 08/09 07 AC 08/12 (SYNTHROID TAB) PO 0614 Loperamide HCl 2 MG PRN PRN 08/04 193 AC (IMODIUM AD ORAL TUBE LIQUID UDC) Melatonin 10 MG QHS 08/09 2200 AC 08/11 (MELATONIN TAB) TUBE 210 Menthol/Methyl 1 APPL BIDPRN PRN 07/28 0030 AC 08/11 Salicylate TP 1126 (MIHIR ALVAREZ T.CREAM) Ondansetron HCl 4 MG BIDPRN PRN 08/040 AC (ZOFRAN TAB) TUBE Ondansetron HCl 4 MG Q6HPRN PRN 07/27 2100 AC 08/04 (ZOFRAN VIAL) IV 2126 Polyethylene Glycol 17 GM QDAY 08/11 1200 AC 08/12 (MIRALAX PACKT) TUBE 0851 Potassium Chloride 40 MEQ ONCE ONE 08/12 0830 AC (potassium (KCL) IV 08/12 1229 CHLORIDE VIAL) Sodium Chloride 250 ML (Sodium Chloride 0.9%) Pravastatin Sodium 40 MG QHS 08/04 2200 AC 08/11 (PRAVACHOL TAB) TUBE 210 Pregabalin 150 MG BID 08/04 2100 AC 08/12 (LYRICA CAP) TUBE 0852 Quetiapine Fumarate 100 MG QHS 08/08 2200 AC 08/11 (SEROQUEL TAB) TUBE 210 Risperidone 3 MG BID 08/09 2100 AC 08/11 (RISPERDAL TAB) TUBE 210 Sodium Chloride 4 ML QIDRT 08/10 1230 AC 08/12 (Sodium Chloride 3% INH 0754 INH.neb) Sodium Chloride See Dose Q24H 08/06 0900 AC 08/12 (Sodium Chloride Insts (3) IV 0852 0.9% FLUSH D.SYR) Sodium Chloride See Dose PRN PRN 08/05 1500 AC (Sodium Chloride Insts (4) IV 0.9% FLUSH D.SYR) Dose Instructions: (1)Heparin Sodium (Porcine) (HEP-LOCK *10*UNITS/ML IV D.SYR.PF): 50-200 UNITS (2)Heparin Sodium (Porcine) (HEP-LOCK *10*UNITS/ML IV D.SYR.PF): 50-200 UNITS (3)Sodium Chloride (Sodium Chloride 0.9% FLUSH D.SYR): 10-40 ML (4)Sodium Chloride (Sodium Chloride 0.9% FLUSH D.SYR): 10-40 ML Substances Denies use of: Alcohol, Tobacco, Recreational Drugs. Social History She lives alone. According to her records she is , but she tells me that her lives in town and is on the road a lot and generally does not live with her. She has a son up in [place] who visits once a month. She denies smoking drinking or using drugs. She does not drive a car and never has. A neighbor gets her groceries. She does some cooking. All day long she watches television. She does some crocheting and knitting. Conclusion 1. Bipolar 1 disorder, mixed, moderate She is on numerous psychotropic medications. Since admission to the hospital she has been taken off Elavil, which should lower her overall sedation. With her recent episodes of agitation yelling and restlessness, I am hesitant to decrease her medications a great deal. However her BuSpar of 20 mg 3 times daily may be causing sedation without providing much benefit, and I feel we can decrease that to 10 mg 3 times daily. She should continue Tegretol 200 mg 3 times daily, Prozac 20 mg a day, Seroquel 100 mg at night, Risperdal 3 mg twice daily melatonin 10 mg nightly, and Haldol 2 mg IV as needed. She is also on Precedex, which may be decreased soon. She will need further reorientation and support. Thank you for asking me to see Mrs. Blanca. 2. History of CVA (cerebrovascular accident) 3. Acute hypoxemic respiratory failure 4. COPD (chronic obstructive pulmonary disease) 5. Pneumonia 6. TASHI (acute kidney injury) 7. Multiple falls Disclaimer This dictation was created using voice recognition software. Phonetic and/or minor grammatical errors may exist. eSign Date and Time Milind Gates MD Verified/Reviewed by 08/24/20 0743 Normal [facility] CONSULTATION-PSYCH Normal [facility] GFR ESTon 08-12-2020 IF AMER Greater than 60 Normal [facility] Comment on above: Order Comment: Campu s: M Performed By: #### L 500.19397, L500.43130, L500.03813, L500.04153 ####[facility] [id number] [place], [place] [address]Pd# [phone] IF non-AFR AMER Greater than 60 [facility] Comment on above: Order Comment: Campu s: M Performed By: #### L 500.36660, L500.92172, L500.67343, L500.40729 ####[facility] [id number] [place], [place] [address]Dv# [phone] IONIZED CAon 08-12-2020 IONIZED CA 1.03 MMOL/L Low 1.16-1.32 [facility] Comment on above: Order Comment: Campu s: M Performed By: #### L 200.97525 #### [facility] [address] [place] [address] MAGNESIUMon 08-12-2020 Magnesium [Mass/Vol] 1.6 MG/CL Normal 1.6-2.6 [facility] Comment on above: Order Comment: Campu s: M Performed By: #### L 500.42667, L500.45534, L500.49741, L500.96221 ####[facility] [id number] [place], [place] [address]Na# [phone] OTPNon 08-12-2020 OT Progress Note Normal [facility] OTPN Occupational Therapy Inpatient Missed Visit Note Location: Bedside. Attempted to visit patient for therapy, but was unable for the following reasons: Patient is unable to arouse. Clinical Reason sleeping in chair Return Plan: Will return as soon as possible for another attempt. If there are any questions regarding this service, please contact the Acute Therapy Department at extension [phone] Services: Total Billed: 0 minutes (Timed: 0, Untimed: 0) 0.00 Untimed: [] OT Treatment General ORDER Signed by: SIMONA LLAMAS/Asuncion 08/12/2020 14:07:10 - CoSigned By: VASHTI Montejo OTR/L 08/12/2020 3:55:[address] [facility] MEDICAL REC #: [id number] [place] [address] ADMIT DATE: 07/27/20 SERVICE DATE: 08/12/20 Occupational Therapy Progress Note ATTENDING PHY: Marta Horvath DO Normal [facility] PHOSon 08-12-2020 Phosphate [Mass/Vol] 2.50 mg/dL Normal 2.5-4.9 [facility] Comment on above: Order Comment: Maciel s: Ramiro Result Comment: Elev ated m-protein (paraprotein) levels in the serum may be exhibited in patients with monoclonal gammopathies, causing falsely elevated inorganic phosphorus results. Performed By: #### L 500.84549, L500.29702, L500.31465, L500.86963 ####[facility] [id number] [place], [place] [address]Lf# [phone] PROG [facility] 08-12-2020 PROG [facility] Patient Name: ANDRE BLANCA [facility] Date of : [address] [address] Unit Number: [id number] Progress Note-Hospitalist Patient Status: ADM IN Attending Doctor: Marta Horvath DO Service Date: 08/12/201416 See Addendum Chief Complaint Chief Complaint Syncope Subjective S: (2 ROS minimum) Patient still not thought to be reliable historian. ANO x1-2 today. Knew she was at a medical facility and her name but cannot tell me the name of the hospital or the year. Patient continues to have high oxygen needs per my discussion with nursing Objective (ROS) Nursing Vitals Vital Signs (Last) Result Date Time Pulse Ox 98 08/12 1400 B/P 110/53 08/12 1400 B/P Mean 79 08/12 1400 O2 Delivery HIGH FLOW NC 08/12 1400 O2 Flow Rate 75% 08/12 1400 Pulse 92 08/12 1400 Resp 20 08/12 1400 Temp 98.3 08/12 1200 Physical Exam Physical Examination Notes General: Elderly female, patient is alert and oriented x1-2 and is in no acute respiratory distress HEENT: Normal cephalic, atraumatic, PERRLA Lungs: Some coarse breath sounds bilaterally, some transmitted upper airway sounds. No wheezing noted Cardiac: Regular rhythm and rate, no murmurs, no rubs. Abdomen: Soft, nontender, nondistended, bowel sounds are active. Extremities: No edema, cyanosis, or clubbing. Skin: No rashes or breakdown. Musculoskeletal: Normal MS exam, moves all extremities Lymphatic: Negative cervical, supra-clavicular, groin lymphadenopathy. Neurologic: Cranial nerves from II-XII intact grossly, no focal deficits. Psychiatry: Some confusion noted Diagnostic Data: Lab 24hr (CBC/BMP [facility]) 08/12/20 0409: Ionized Calcium 1.03 L 08/12/20 0409: [Embedded Image Not Available] Anion Gap LESS THAN 3 L, Est GFR ( Amer) Greater than 60, Est GFR (Non-Af Amer) Greater than 60, BUN/Creatinine Ratio 22, Glucose 163 H, Total Calcium 7.9 L, Phosphorus 2.50, Magnesium 1.6, RBC 2.79 L, MCV 97.5, MCHC 30.5 L, RDW 15.9 H, MPV 11.9, Seg Neutrophils % 81.0 H, Band Neutrophils % 1.0, Lymphocytes % 6.0 L, Monocytes % 2.0, Eosinophils % 7.0 H, Metamyelocytes % 1.0, Myelocytes % 2.0, Neutrophils # 11.18 H, Band Neutrophils # 0.14, Lymphocytes # 0.83 L, Monocytes # 0.28, Eosinophils # 0.97 H, Metamyelocytes # 0.14, Myelocytes # 0.28, Nucleated RBCs 0.1, Toxic Granulation PRESENT, Platelet Estimate ADEQUATE, Platelet Morphology LARGE FORMS NOTED, Polychromasia 1+, Hypochromasia 2+ 08/11/20 2133: Stl Cyclospora species NOT DETECTED, Stool Rotavirus A PCR NOT DETECTED, Stool Adenovirus (PCR) NOT DETECTED, Stool Astrovirus (PCR) NOT DETECTED, Stool Campylobacter PCR NOT DETECTED, Stool Cryptosporidium PCR NOT DETECTED, Stl E.coli Shiga Toxins NOT DETECTED, Stl Enterotoxigenic E PCR NOT DETECTED, Stool EPEC (PCR) NOT DETECTED, Stool EAEC (PCR) NOT DETECTED, Stool Entamoeba (PCR) NOT DETECTED, Stool Giardia Lamblia PCR NOT DETECTED, Stool Salmonella PCR NOT DETECTED, Stool Sapovirus (PCR) NOT DETECTED, Stl P. shigelloides PCR NOT DETECTED, Stl Shigella/EIEC PCR NOT DETECTED, St Y.enterocolitica PCR NOT DETECTED , Stool Vibrio (PCR) NOT DETECTED, Stl Vibrio cholera PCR NOT DETECTED, Stl Norovirus GI/ GII PCR NOT DETECTED, Escherichia coli 0157 NOT DETECTED Assessment and Plan Conclusion 1. Pneumonia Patient completed course of antibiotics with Unasyn for treatment of aspiration pneumonia. White blood cell count was down to 13.8 today. She is afebrile. Pulmonology is following On Mon 1:30p Aug 11, 2020 DELIA ADAM wrote Patient was under treatment for aspiration. Has been on Unasyn for antibiotic coverage. White blood cell count down to 15.7 today. Chest x-ray was repeated this morning and interstitial and alveolar opacities remain bilaterally without significant change per the radiologist read. On Mon 12:30p Aug 10, 2020 DELIA ADAM wrote Pulmonology/critical care has been following. Patient was under treatment for aspiration. Patient has been on Unasyn for antibiotic coverage. White blood cell count remains elevated at 18.7. Chest x-ray today was read as no significant interval change in noted diffuse interstitial and alveolar opacities present bilaterally On Mon:Aug 09, 2020 DELIA ADAM wrote Some concern that this may be secondary to aspiration. Patient has been on Unasyn. Strep and Legionella antigens were previously checked and were negative. White blood cell count at 19.1 today. Pulmonology/critical care has been following. Chest x-ray today was read as worsening bilateral hazy interstitial pulmonary opacities left greater than right. Patient remains on high flow On Sat 3:42p Aug 08, 2020 DELIA ADAM wrote Some concern this may been secondary to aspiration. Patient continues with Unasyn. White blood cell count on last check was 18.7. Patient was previously checked for strep and Legionella antigens and was negative. Pulmonology has been following. Chest x-ray today was read as worsening appearance of the lungs. Bilateral pulmonary infiltrates were noted. Patient was on high flow 2. Acute respiratory failure with hypoxia Patient continues to have high oxygen needs. Most recent chest x-ray was read as no significant interval change. Interstitial and alveolar opacities remain bilaterally On MonAug 11, 2020 DELIA ADAM wrote Likely secondary to recent pneumonia. Patient still requiring high flow nasal cannula, wean O2 as tolerated, pulmonary critical care has been following and managing On Mon 12:Aug 10, 2020 DELIA ADAM wrote Patient enoc on high flow nasal cannula, wean O2 as tolerated. Chest x-ray showing findings concerning for pneumonia for which patient has been receiving treatment with Unasyn. Pulmonary critical care following On Mon:Aug 09, 2020 DELIA ADAM wrote Patient remains on high flow, chest x-ray showing findings concerning for pneumonia On Sat :p Aug 08, 2020 DELIA ADAM wrote Possibly secondary to recent pneumonia. Chest x-ray showing bilateral pulmonary infiltrates 3. TASHI (acute kidney injury) TASHI thought to be resolved creatinine 0.59 on last check On Mon:Aug 11, 2020 DELIA ADAM wrote Patient with previous TASHI with creatinine up to 4.24, creatinine now 0.67 on last check. TASHI thought to be resolved On MonAug 10, 2020 DELIA ADAM wrote TASHI thought to be improved, creatinine 0.72 on last check On Mon:Aug 09, 2020 DELIA ADAM wrote TASHI thought to be improved creatinine 0.76 on last check On Sat 3:42p Aug 08, 2020 DELIA ADAM wrote TASHI thought to be improved. Creatinine was previously as high as 4.24, was 0.76 on check this morning 4. Syncope Patient not thought to be reliable historian. Patient previously had some positive orthostatic vitals. Attempt to maintain good hydration. Echocardiogram was performed which showed an EF of 60 to 65% On MonAug 11, 2020 DELIA ADAM wrote Patient not thought to be reliable historian difficult to assess. No known loss of consciousness. Patient previously had some orthostatic vitals. Echocardiogram was performed which showed an EF of 60 to 65%. Patient had received fluids On MonAug 10, 2020 DELIA ADAM wrote No current complaints of lightheadedness or dizziness. However patient is a very poor historian as she is only ANO x1. Previously had positive orthostatic vitals. Echo was performed showed an EF of 60 to 65%. Patient was given fluids On MonAug 09, 2020 DELIA ADAM wrote No current complaints of lightheadedness or dizziness a little patient is not thought to be a great historian currently. She previously had previous positive orthostatic vitals. Echo had been performed which showed an EF of 60 to 65% On Sat :42p Aug 08, 2020 DELIA ADAM wrote No current complaints of lightheadedness or dizziness. Patient had positive orthostats noted. Echocardiogram showed an EF of 60 to 65% 5. Hypokalemia Potassium level low today at 3.3. Patient was ordered replacement, magnesium level was checked and was 1.6 today and was also supplemented On MonAug 11, 2020 DELIA ADAM wrote Potassium level low today at 3.4 patient was ordered replacement, recheck in a.m., check magnesium level in a.m. On Mon:Aug 10, 2020 DELIA ADAM wrote Potassium level somewhat better overall currently 3.5. Replace as needed On Mon:Aug 09, 2020 DELIA ADAM wrote Improvement in potassium level overall to 3.8 On Sat 3:42p Aug 08, 2020 DELIA ADAM wrote Potassium level low at 3.4 today. Patient was ordered IV potassium replaced, check magnesium level in the a.m. 6. Hypernatremia Some improvement in sodium level today down to 149 on increased free water flushes down, continue with free water flushes and continue to monitor sodium level On Tue :30Aug 11, 2020 DELIA ADAM wrote Sodium level 153 again today. Patient's free water flushes are being increased, follow sodium level in a.m. On Mon:Aug 10, 2020 DELIA ADAM wrote Sodium level slightly worse today at 153. Patient on free water flushes with tube feeds. Will increase free water flushes On Mon:Aug 09, 2020 DELIA ADAM wrote Sodium level 151 on last check and was increasing. Adding free water with tube feeds ADDENDUM: DELIA ADAM on 08/12/20 at 1421 7. Encephalopathy possibly metabolic encephalopathy. Psychiatry is currently following, some medication changes were made. Patient's patient poor respiratory status and possible infection could be a contributing factor Disclaimer This dictation was created using voice recognition software. Phonetic and/or minor grammatical errors may exist. eSign Date and Time Delia Adam MD Verified/Reviewed by 08/12/20 1422 [facility] Progress Note-Hospitalist [facility] GZoran 08-12-2020 G.[facility] Patient Name: ANDRE BLANCA [address] Date of : [address] [address] Unit Number: [id number] Progress Note-Adjuster And Inspector Patient Status: ADM IN Attending Doctor: Marta Horvath DO Service Date: 08/12/20 0751 Progress Note-Adjuster And Inspector Subjective Subjective: Patient still on high flow oxygen at this time. Patient is delirious, but seems a little more oriented today. Objective Vital Signs: Vital Signs (Last) Result Date Time Pulse Ox 99 08/12 07 B/P 127/69 08/12 700 B/P Mean 83 08/12 700 O2 Delivery HIGH FLOW NC 08/12 700 O2 Flow Rate 40L75% 08/12 700 Pulse 97 08/12 07 Resp 18 08/12 700 Temp 99.0 08/12 530 IandO 24 Hour Summary 08/12 0000 Intake Total 2791 Output Total 1452 Balance 1339 Intake, IV 1541 Intake, Oral 60 Intake, Tube 1190 Feeding Output, Stool 2 Output, Urine 1450 Exam: General: More arousable, still on Precedex drip, able answer some questions about self Heart: RRR,nl s1/s2 Lungs: Course BS bilaterally R > L; Abdomen: Soft, nt, nd, + BS, obese Extremities: No LE edema Neurologic: Answering questions about self, moving extremities x4 Medications: Medications Current Sig/Antonella Start time Last Medication Dose Route Stop Time Status Admin Acetaminophen 500 MG Q6HPRN PRN 08/04 1930 AC 08/12 (TYLENOL ORAL LIQ) TUBE 0437 Albuterol Sulfate 2.5 MG Q6HPRN PRN 07/28 0030 AC (VENTOLIN/PROVENTIL INH 2.5MG/3ML INH.NEB) Albuterol/Ipratropium 3 ML Q4HRT 08/04 2030 AC 08/12 (DUONEB 0.5-3 MG/3 INH 0413 ML INH.NEB) Albuterol/Ipratropium 3 ML Q2HPRN PRN 07/28 0100 AC (DUONEB 0.5-3 MG/3 INH ML INH.NEB) Budesonide 0.5 MG BID 08/04 2100 AC 08/11 (PULMOCORT 0.5MG/2ML INH 1950 INH.NEB) Buspirone HCl 20 MG TIDWM 08/05 08 AC 08/11 (BUSPAR TAB) TUBE 1522 Carbamazepine 200 MG TIDWM 08/05 08 AC 08/11 (TEGRETOL TAB) TUBE 1523 Clopidogrel Bisulfate 75 MG QDAY 08/05 0900 AC 08/11 (PLAVIX TAB) TUBE 0831 Dexmedetomidine HCl 400 MCG TITRATE(SEE SHAUNA VFS) 08/07 1330 AC 08/12 (PRECEDEX VIAL) IV 0614 Sodium Chloride 96 ML (Sodium Chloride 0.9%) Docusate Sodium 100 MG BID 08/11 1230 AC 08/11 (COLACE ORAL LIQ) TUBE 2107 Enoxaparin Sodium 40 MG QDAY 07/28 0900 AC 08/11 (LOVENOX D.SYR) SC 0830 Esomeprazole 40 MG BIDAC 08/05 0700 AC 08/12 Magnesium TUBE 0614 (NEXIUM CAP (TXI)) Fluoxetine HCl 20 MG QDAY 08/05 0900 AC 08/11 (PROZAC CAP) TUBE 0831 Guaifenesin 10 ML TID 08/11 1400 AC 08/11 (ROBITUSSIN 200MG/10 TUBE 2200 ML ORAL LIQ) Haloperidol Lactate 2 MG Q4HPRN PRN 08/07 0900 AC 08/12 (HALDOL AMP) IV 0351 Heparin Sodium See Dose Q24H 08/06 0900 AC 08/06 (Porcine) Insts (1) IV 0807 (HEP-LOCK *10*UNITS/ ML IV D.SYR.PF) Heparin Sodium See Dose PRN PRN 08/05 1500 AC (Porcine) Insts (2) IV (HEP-LOCK *10*UNITS/ ML IV D.SYR.PF) Levothyroxine Sodium 0.125 MG QDAYAC 08/09 0700 AC 08/12 (SYNTHROID TAB) PO 0614 Loperamide HCl 2 MG PRN PRN 08/04 193 AC (IMODIUM AD ORAL TUBE LIQUID UDC) Melatonin 10 MG QHS 08/09 2200 AC 08/11 (MELATONIN TAB) TUBE 210 Menthol/Methyl 1 APPL BIDPRN PRN 07/28 0030 AC 08/11 Salicylate TP 1126 (MIHIR ALVAREZ T.CREAM) Ondansetron HCl 4 MG BIDPRN PRN 08/040 AC (ZOFRAN TAB) TUBE Ondansetron HCl 4 MG Q6HPRN PRN 07/27 2100 AC 08/04 (ZOFRAN VIAL) IV 212 Polyethylene Glycol 17 GM QDAY 08/11 1200 AC 08/11 (MIRALAX PACKT) TUBE 1216 Pravastatin Sodium 40 MG QHS 08/04 2200 AC 08/11 (PRAVACHOL TAB) TUBE 210 Pregabalin 150 MG BID 08/04 2100 AC 08/11 (LYRICA CAP) TUBE 2106 Quetiapine Fumarate 100 MG QHS 08/08 2200 AC 08/11 (SEROQUEL TAB) TUBE 210 Risperidone 3 MG BID 08/09 2100 AC 08/11 (RISPERDAL TAB) TUBE 2106 Sodium Chloride 4 ML QIDRT 08/10 1230 AC 08/11 (Sodium Chloride 3% INH 1950 INH.neb) Sodium Chloride See Dose Q24H 08/06 0900 AC 08/10 (Sodium Chloride Insts (3) IV 0825 0.9% FLUSH D.SYR) Sodium Chloride See Dose PRN PRN 08/05 1500 AC (Sodium Chloride Insts (4) IV 0.9% FLUSH D.SYR) Dose Instructions: (1)Heparin Sodium (Porcine) (HEP-LOCK *10*UNITS/ML IV D.SYR.PF): 50-200 UNITS (2)Heparin Sodium (Porcine) (HEP-LOCK *10*UNITS/ML IV D.SYR.PF): 50-200 UNITS (3)Sodium Chloride (Sodium Chloride 0.9% FLUSH D.SYR): 10-40 ML (4)Sodium Chloride (Sodium Chloride 0.9% FLUSH D.SYR): 10-40 ML Radiology Impressions: Recent Impressions (48H) RADIOLOGY - PORTABLE CHEST 08/11 0350 Report Impression - Status: SIGNED Entered: 08/11/2020 0736 IMPRESSION: No significant interval change. Impression By: SILVIO BURKETT M.D. ABG: ABG-Last Test Result Date Time Blood Gas Specimen Type ARTERIAL 08/11 538 Sample Site L RADIAL 08/11 538 Patient Temperature (C) 37.2 08/11 538 pH (7.35 - 7.45) 7.41 08/11 538 pCO2 (35 - 45 MMHG) 52.4 H 08/11 538 pO2 (80 - 100 MMHG) 71 L 08/11 538 HCO3 (22 - 26 MMOL/L) 32.5 H 08/11 538 Base Excess (-2.0 - 2.0 MML/L) 7.0 H 08/11 538 ABG O2 Sat (Measured) (90 - 100 %) 92.7 08/11 538 ABG Oximetry (%) 94 08/11 538 ABG O2 Content (15.7 - 21.6 mL/dL) 11.9 L 08/11 538 ABG Hemoglobin (10 - 16 GM/DL) 9.1 L 08/11 538 ABG Reduced Hgb (0 - 5 %) 6.8 H 08/11 538 ABG Carboxyhemoglobin (0 - 10 %) 0.2 08/11 538 ABG Methemoglobin (0.4 - 1.5 %) 0.3 L 08/11 538 ABG O2 Capacity (mL/dL) 12.6 08/11 538 Doug Test POSITIVE 08/11 538 Sodium (136 - 148 mmol/L) 147 08/11 538 Potassium (3.5 - 5.0 MMOL/L) 3.2 L 08/11 538 Glucose (60 - 80 MG/DL) 174 H 08/11 538 Lactate (0.40 - 2.00 MMOL/L) 0.94 08/11 538 Patient Equipment HIGH FLOW CANNULA 08/11 538 Liter Flow (L/M) 45.00 08/11 538 FiO2 % (%) 52 08/11 538 Lab Results: Lab 24hr (CBC/BMP Fishbone) 08/12/20 0409: Ionized Calcium 1.03 L 08/12/20 0409: [Embedded Image Not Available] Anion Gap LESS THAN 3 L, Est GFR ( Amer) Greater than 60, Est GFR (Non-Af Amer) Greater than 60, BUN/Creatinine Ratio 22, Glucose 163 H, Total Calcium 7.9 L, Phosphorus 2.50, Magnesium 1.6, RBC 2.79 L, MCV 97.5, MCHC 30.5 L, RDW 15.9 H, MPV 11.9, Seg Neutrophils % 81.0 H, Band Neutrophils % 1.0, Lymphocytes % 6.0 L, Monocytes % 2.0, Eosinophils % 7.0 H, Metamyelocytes % 1.0, Myelocytes % 2.0, Neutrophils # 11.18 H, Band Neutrophils # 0.14, Lymphocytes # 0.83 L, Monocytes # 0.28, Eosinophils # 0.97 H, Metamyelocytes # 0.14, Myelocytes # 0.28, Nucleated RBCs 0.1, Toxic Granulation PRESENT, Platelet Estimate ADEQUATE, Platelet Morphology LARGE FORMS NOTED, Polychromasia 1+, Hypochromasia 2+ 08/11/202132: Stl Cyclospora species NOT DETECTED, Stool Rotavirus A PCR NOT DETECTED, Stool Adenovirus (PCR) NOT DETECTED, Stool Astrovirus (PCR) NOT DETECTED, Stool Campylobacter PCR NOT DETECTED, Stool Cryptosporidium PCR NOT DETECTED, Stl E.coli Shiga Toxins NOT DETECTED, Stl Enterotoxigenic E PCR NOT DETECTED, Stool EPEC (PCR) NOT DETECTED, Stool EAEC (PCR) NOT DETECTED, Stool Entamoeba (PCR) NOT DETECTED, Stool Giardia Lamblia PCR NOT DETECTED, Stool Salmonella PCR NOT DETECTED, Stool Sapovirus (PCR) NOT DETECTED, Stl P. shigelloides PCR NOT DETECTED, Stl Shigella/EIEC PCR NOT DETECTED, St Y.enterocolitica PCR NOT DETECTED , Stool Vibrio (PCR) NOT DETECTED, Stl Vibrio cholera PCR NOT DETECTED, Stl Norovirus GI/ GII PCR NOT DETECTED, Escherichia coli 0157 NOT DETECTED Assessment/Plan Assessment/Problem List: 1. Acute hypoxemic respiratory failure 70 y/o with PMHx of COPD, HFpEF, CVA, and Former Tobacco Abuse presented to [facility] emergency department on 07/27 secondary to Syncope and was admitted to telemetry. Our service was consulted on 08/04 secondary to Worsening Hypoxemia requiring HFNC. She is being transferred to the D-ICU. ASSESSMENT: - LLL Aspiration Pneumonia - Acute Hypoxemic Respiratory Failure 2/2 above - Nausea and Vomitting - Encephalopathy - TASHI 2/2 Dehydration - HFpEF (EF 60-65% per Echo 07/2020) - Tobacco Abuse, in Remission - Obesity - Hx of COPD (no PFTs on file) - Hx of CVA -History of multiple falls -History of psychiatric illness PLAN: * Currently oxygenating adequately on 40L/65% FiO2 via HFNC. Continue to wean with goal > SpO2 88% * CXR showed bilateral airspace disease left greater than right. * judicious precedex gtt, wean as tolerated. Patient with long history of psychiatric illness. Psychiatry consulted for help with delirium and adjustment of medications. * No documented fevers. Mild leukocytosis. Urine Ag/SARS-CoV-2 negative. * Finished IV Unasyn (Day #7/7) for aspiration pneumonia, watch off antibiotics. White count has been decreasing. * Abdominal X-ray ==> neg for ileus/obstruction, NG tube in for feeds. * c/w TFs , started on free water for (hypernatremia) increase to 250cc q4H, hyponatremia improving. * Continue scheduled and PRN Duonebs. Add Budesonide. Resume home Symbicort upon discharge * Continue Incentive Spirometry. Add Acapella Flutter Valve and Hypertonic Saline Nebs for proper pulmonary toilet; add guaifenesin * improved renal function w fluids, normalized by most recent testing. * Replace electrolytes. 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 Patient spent time at the [facility] according to son, that is the facility that she met her . * History of multiple falls in the past. * F/E/N: HL fluids/replete lytes as needed /c/w TFs * GI/DVT Prophylaxis: PO nexium/Lovenox * CODE STATUS: DNR Comfort Care arrest, discussed with son Giana Blanca, area code . Did also discuss if patient is functionally declining, consider changing CODE STATUS to comfort only. Patient is requiring higher oxygen than yesterday. Will watch carefully with full medical therapy. Patient son was updated on 08/11/2020. Please see orders. Total care time 37 minutes Disclaimer This dictation was created using voice recognition software. Phonetic and/or minor grammatical errors may exist. eSign Date and Time Jayesh Loera MD Verified/Reviewed by 08/12/20 0755 [facility] Progress Note-Adjuster And Inspector [facility] PTPNon 08-12-2020 PT Progress Note [facility] PTPN Physical Therapy Inpatient Treatment Note Medical Diagnosis: 1. Acute hypoxemic respiratory failure 2. Syncope 3. Hypothyroidism multiple rib fxs Demographics: Age: 70Y Gender: Female Primary Language: Estonian Preferred Language: Estonian Rehabilitation Precautions/Restrictio ns: NG tube, 4-point restraints, high flow NC, SUBJECTIVE Patient Report: "I'm okay" Confusion noted. Repeating words and talking to herself in room. Patient/Caregiver Goals: None stated Pain: Patient currently without complaints of pain. OBJECTIVE General Observation: Nursing okayed session. Pt in bed, lethargic and mumbling unintelligibly to herself. Oriented to self and "hospital". Difficulty following commands. Functional Activities After Today's Session: Transfers: Mod A x2 for supine > sit, assist for LEs/trunk and scooting to EOB, pt required max cuing to sequence movements to assist w/ transfers. Fair sitting balance on EOB, CGA. Patient transferred sit to/from stand requiring moderate assistance of 1 person. 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 Nursing provided pericare while standing. Bed > chair on R w/ Mod A x1 and nursing managing lines, pt able to take small steps to complete transfer w/ WW for support, side stepping and turning w/ assist for balance and WW management. No LE buckling noted. Cues and assist for safe descent into chair. Locomotion/Ambulation: Not assessed/applicable Stairs: Not assessed. Curb Negotiation: Not assessed. [facility] PATIENT NAME: ANDRE BLANCA [facility] Dr. Andrea MEDICAL REC #: [id number] [place] [address] ADMIT DATE: 07/27/20 SERVICE DATE: 08/12/20 Physical Therapy Progress Note ATTENDING PHY: Marta Horvath DO AM-PAC Basic Mobility: Turning Over in Bed: A lot of difficulty Sitting/Standing Chair with Arms: A lot of difficulty Lying on Back to Sitting on Side of Bed: A lot of difficulty Moving To/From Bed to Chair: A lot of help needed Walking in Hospital Room: A lot of help needed Climbing 3-5 Steps with Railing: Total assistance needed Raw Score = 11 , AM-PAC t-Scale Score = 33.86 and G-Code Modifier = CL Vital Signs: Vitals: Oxygen Saturation: 92 % Oxygen Saturation: 86 % Interventions: Therapeutic Activities: Bed mobility, EOB sitting balance, functional transfer training and bed > chair as noted. Education on activity progression, safety, HEP. Redirection needed. Extra time for room setup/line management Pain Reassessment: No significant change in pain during session. Education: Education Provided: Precautions. Plan of care. Bed mobility. Functional transfers. Safety. Equipment. Gait. Home exercise/activity plan. Audience: Patient. Mode: Explanation. Demonstration. Response: Needs practice. Needs reinforcement. No evidence of learning. ASSESSMENT Response to Visit: Fair/poor, pt more alert and able to follow commands, continues to require heavy assist for mobility. Recommending slower paced therapies at discharge. Activity/Participation Problem List and Goals: No updates at this time. Progress Toward Goals: TREATMENT GOAL REVIEW: 1. Pt transfer MOD I - Not Met: ONgoing 2. Pt ambulate at least 50 feet WW MOD I - Not Met Ongoing 3. Demo independence with LE thex for endurance and strengthening - Not Met ONgoing Time frame to achieve treatment goal(s): 2 weeks PLAN Treatment Frequency, Duration and Interventions: Physical Therapy is recommended for 5x/week x2 weeks Physical Therapy treatment is to include: gait, transfes, endurance, balance, safety [facility] PATIENT NAME: ANDRE BLANCA [facility] Dr. Andrea MEDICAL REC #: [id number] [place] [address] ADMIT DATE: 07/27/20 SERVICE DATE: 08/12/20 Physical Therapy Progress Note ATTENDING GIRISHY: Marta Horvath DO Recommended Physical Therapy Follow Up: Upon acute care discharge, the following is currently recommended: Inpatient Physical Therapy, LESS THAN 60 minutes per day. Recommended Equipment: Recommended Consults: Development of Plan of Care: There was no change to plan of care today. If there are any questions regarding this service, please contact the Acute Therapy Department at extension [phone] Location of Patient at End of Therapy Session: In chair, chair alarm in place, call light within reach Services: Total Billed: 38 minutes (Timed: 38, Untimed: 0) 38.00 Timed: [15162] THER ACTIVITIES / 15 MIN 0.00 Untimed: [] PT Treatment- General ORDER Signed by: Michel Cooper, TENTER 08/12/2020 13:20:17 - CoSigned By: Ioana Holden, 08/12/2020 2:00:[address] [facility] PATIENT NAME: ANDRE BLANCA [facility] Dr. Andrea MEDICAL REC #: [id number] [place] [address] ADMIT DATE: 07/27/20 SERVICE DATE: 08/12/20 Physical Therapy Progress Note ATTENDING PHY: Marta Horvath DO Normal [facility] STOOL PANEL GIon 08-12-2020 ADENOVIRUS PCR NOT DETECTED [facility] on above: Order Comment: Campu s: MSPECIMEN SOURCE: STOOL Performed By: #### L [id number] ####[facility] [id number] [place], [place] [address]Ml# [phone] ASTROVIRUS PCR NOT DETECTED Normal [facility] Comment on above: Order Comment: Campu s: MSPECIMEN SOURCE: STOOL Result Comment: Viru s, bacteria, and parasite nucleic acid may persist in vivo independently of organism viability. Additionally, some organisms may be carried asymptomatically. Detection of organism targets does not imply that the corresponding organisms are infections or are the causative agents for clinical symptoms. Performed By: #### L [id number] ####[facility] [id number] [place], [place] [address]Ib# [phone] CAMPY NOT DETECTED [facility] Comment on above: Order Comment: Campu s: MSPECIMEN SOURCE: STOOL Performed By: #### L [id number] ####[facility] [id number] [place], [place] [address]Db# [phone] CRYPTOSPORIDIUM NOT DETECTED Normal NOTDETECTED [facility] Comment on above: Order Comment: Campu s: MSPECIMEN SOURCE: STOOL Performed By: #### L [id number] ####[facility] [id number] [place], [place] [address]Vr# [phone] CYCLOSPORA PCR NOT DETECTED Normal NOTDETECTED [facility] Comment on above: Order Comment: Campu s: MSPECIMEN SOURCE: STOOL Performed By: #### L [id number] ####[facility] [id number] [place], [place] [address]Nf# [phone] E.COLI O157 PCR NOT DETECTED Normal NOTDETECTED [facility] Comment on above: Order Comment: Campu s: MSPECIMEN SOURCE: STOOL Performed By: #### L [id number] ####[facility] [id number] [place] [address]Xa# [phone] E.HISTOLYTICA NOT DETECTED Normal NOTDETECTED [facility] Comment on above: Order Comment: Campu s: MSPECIMEN SOURCE: STOOL Performed By: #### L [id number] ####[facility] [id number] [place], [place] [address]As# [phone] EAEC E COLI PCR NOT DETECTED Normal NOTDETECTED [facility] Comment on above: Order Comment: Campu s: MSPECIMEN SOURCE: STOOL Performed By: #### L [id number] ####[facility] [id number] [place], [place] [address]Mi# [phone] EPEC E COLI PCR NOT DETECTED Normal NOTDETECTED [facility] Comment on above: Order Comment: Campu s: MSPECIMEN SOURCE: STOOL Performed By: #### L 780.74657 ####[facility] [id number] [place], [place] [address]Na# [phone] ETEC E.COLI PCR NOT DETECTED Normal NOTDETECTED [facility] Comment on above: Order Comment: Campu s: MSPECIMEN SOURCE: STOOL Performed By: #### L 780.61094 ####[facility] [id number] [place], [place] [address]Ji# [phone] GIARDIA CARTER PCR NOT DETECTED Normal NOTDETECTED [facility] Comment on above: Order Comment: Campu s: MSPECIMEN SOURCE: STOOL Performed By: #### L 780.27064 ####[facility] [id number] [place] [address]Kj# [phone] NOROVIRUS PCR NOT DETECTED Normal NOTDETECTED [facility] Comment on above: Order Comment: Campu s: MSPECIMEN SOURCE: STOOL Performed By: #### L 780.04717 ####[facility] [id number] [place] [address]Zw# [phone] PLESIOMONAS PCR NOT DETECTED Normal NOTDETECTED [facility] Comment on above: Order Comment: Campu s: MSPECIMEN SOURCE: STOOL Performed By: #### L 780.94992 ####[facility] [id number] [place], [place] [address]Ww# [phone] ROTAVIRUS A PCR NOT DETECTED Normal NOTDETECTED [facility] Comment on above: Order Comment: Campu s: MSPECIMEN SOURCE: STOOL Performed By: #### L 780.47636 ####[facility] [id number] [place], [place] [address]Tg# [phone] SALMONELLA PCR NOT DETECTED Normal NOTDETECTED [facility] Comment on above: Order Comment: Campu s: MSPECIMEN SOURCE: STOOL Performed By: #### L 780.22883 ####[facility] [id number] [place], [place] [address]Ec# [phone] SAPOVIRUS PCR NOT DETECTED Normal NOTDETECTED [facility] Comment on above: Order Comment: Campu s: MSPECIMEN SOURCE: STOOL Performed By: #### L 780.02632 ####[facility] [id number] [place] [address]Hs# [phone] SHIGATOXIN ECOL NOT DETECTED Normal NOTDETECTED [facility] Comment on above: Order Comment: Campu s: MSPECIMEN SOURCE: STOOL Performed By: #### L 780.11188 ####[facility] [id number] [place], [place] [address]Ac# [phone] SHIGELLA/EIEC NOT DETECTED Normal NOTDETECTED [facility] Comment on above: Order Comment: Campu s: MSPECIMEN SOURCE: STOOL Performed By: #### L 780.40897 ####[facility] [id number] [place] [address]Cz# [phone] V CHOLERAE PCR NOT DETECTED Normal NOTDETECTED [facility] Comment on above: Order Comment: Campu s: MSPECIMEN SOURCE: STOOL Performed By: #### L 780.38356 ####[facility] [id number] [place] [address]Vn# [phone] VIBRIO PCR NOT DETECTED Normal NOTDETECTED [facility] Comment on above: Order Comment: Campu s: MSPECIMEN SOURCE: STOOL Performed By: #### L 780.16626 ####[facility] [id number] [place] [address]Ai# [phone] YERSINIA PCR NOT DETECTED Normal NOTDETECTED [facility] Comment on above: Order Comment: Campu s: MSPECIMEN SOURCE: STOOL Performed By: #### L 780.69564 ####[facility] [id number] [place] [address]Po# [phone] ABGPEGLAon 08-11-2020 ABG BE 7.0 MML/L High -2.0-2.0 [facility] Comment [facility]: Order Comment: Campu s: MCKENNA BLOOD GAS? YPatient's Anticoagulant? UNKNOWN Performed By: #### L 100.62768 ####[facility] [id number] [place], [place] [address]Ji# [phone] ABG COHBA 0.2 % Normal 0-10 [facility] Comment on above: Order Comment: Campu s: MCKENNA BLOOD GAS? YPatient's Anticoagulant? UNKNOWN Performed By: #### L 100.71387 ####[facility] [id number] [place], [place] [address]Al# [phone] ABG GLU 174 MG/DL High 60-80 [facility] Comment on above: Order Comment: Campu s: MCKENNA BLOOD GAS? YPatient's Anticoagulant? UNKNOWN Performed By: #### L 100.43785 ####[facility] [id number] [place], [place] [address]Gr# [phone] ABG HCO3 32.5 MMOL/L High 22-26 [facility] Comment on above: Order Comment: Campu s: MCKENNA BLOOD GAS? YPatient's Anticoagulant? UNKNOWN Performed By: #### L 100.87024 ####[facility] [id number] [place], [place] [address]Tz# [phone] ABG MET 0.3 % Low 0.4-1.5 [facility] Comment on above: Order Comment: Campu s: MCKENNA BLOOD GAS? YPatient's Anticoagulant? UNKNOWN Performed By: #### L 100.68814 ####[facility] [id number] [place], [place] [address]Og# [phone] ABG O2 CAPACITY 12.6 mL/dL Normal [facility] Comment on above: Order Comment: Campu s: MCKENNA BLOOD GAS? YPatient's Anticoagulant? UNKNOWN Performed By: #### L 100.45467 ####[facility] [id number] [place], [place] [address]Og# [phone] ABG O2 CONTENT 11.9 mL/dL Low 15.7-21.6 [facility] Comment on above: Order Comment: Campu s: MCKENNA BLOOD GAS? YPatient's Anticoagulant? UNKNOWN Performed By: #### L 100.70720 ####[facility] [id number] [place], [place] [address]Vm# [phone] ABG O2HB SAT 92.7 % Normal 90-100 [facility] Comment on above: Order Comment: Campu s: MCKENNA BLOOD GAS? YPatient's Anticoagulant? UNKNOWN Performed By: #### L 100.54893 ####[facility] [id number] [place], [place] [address]Bh# [phone] ABG PCO2 52.4 MMHG High 35-45 [facility] Comment on above: Order Comment: Campu s: MCKENNA BLOOD GAS? YPatient's Anticoagulant? UNKNOWN Performed By: #### L 100.41957 ####[facility] [id number] [place], [place] [address]Qf# [phone] ABG PH 7.41 Normal 7.35-7.45 [facility] Comment on above: Order Comment: Campu s: MCKENNA BLOOD GAS? YPatient's Anticoagulant? UNKNOWN Performed By: #### L 100.79095 ####[facility] [id number] [place] [address] 87[address]Xq# [phone] ABG PO2 71 MMHG Low 80-100 [facility] Comment on above: Order Comment: Campu s: MCKENNA BLOOD GAS? YPatient's Anticoagulant? UNKNOWN Performed By: #### L 100.41335 ####[facility] [id number] [place] [address]Gv# [phone] DOUG TEST Positive Normal [facility] Comment on above: Order Comment: Campu s: MCKENNA BLOOD GAS? YPatient's Anticoagulant? UNKNOWN Performed By: #### L 100.35044 ####[facility] [id number] [place] [address]Lj# [phone] aPTT Coag (Bld) [Time] 37.2 C Normal [facility] Comment on above: Order Comment: Campu s: MCKENNA BLOOD GAS? YPatient's Anticoagulant? UNKNOWN Performed By: #### L 100.24229 ####[facility] [id number] [place], [place] [address]Fl# [phone] EQUIPMENT HIGH FLOW CANNULA Normal [facility] Comment on above: Order Comment: Campu s: MCKENNA BLOOD GAS? YPatient's Anticoagulant? UNKNOWN Performed By: #### L 100.48168 ####[facility] [id number] [place], [place] [address]Td# [phone] FIO2 52 % Normal [facility] Comment on above: Order Comment: Campu s: MCKENNA BLOOD GAS? YPatient's Anticoagulant? UNKNOWN Performed By: #### L 100.77075 ####[facility] [id number] [place] [address]86[address]Ph# [phone] Hemoglobin (Bld) [Mass/Vol] 6.8 % High 0-5 [facility] Comment on above: Order Comment: Campu s: MCKENNA BLOOD GAS? YPatient's Anticoagulant? UNKNOWN Performed By: #### L 100.50276 ####[facility] [id number] [place], [place] [address]Kv# [phone] Hemoglobin (Bld) [Mass/Vol] 9.1 g/dL Low 10-16 [facility] Comment on above: Order Comment: Campu s: MCKENNA BLOOD GAS? YPatient's Anticoagulant? UNKNOWN Performed By: #### L 100.57609 ####[facility] [id number] [place], [place] [address]Ph# [phone] IONIZED CA 1.10 MMOL/L Low 1.13-1.32 [facility] Comment on above: Order Comment: Campu s: MCKENNA BLOOD GAS? YPatient's Anticoagulant? UNKNOWN Performed By: #### L 100.93308 ####[facility] [id number] [place], [place] [address]Ph# [phone] LACTATE BLOOD 0.94 MMOL/L Normal 0.40-2.00 [facility] Comment on above: Order Comment: Campu s: MCKENNA BLOOD GAS? YPatient's Anticoagulant? UNKNOWN Performed By: #### L 100.04192 ####[facility] [id number] [place], [place] [address]By# [phone] LITERFLOW 45.00 L/M Normal [facility] Comment on above: Order Comment: Campu s: MCKENNA BLOOD GAS? YPatient's Anticoagulant? UNKNOWN Performed By: #### L 100.45289 ####[facility] [id number] [place], [place] [address]Ph# [phone] Oxygen saturation in Blood 94 % Normal [facility] Comment on above: Order Comment: Campu s: MCKENNA BLOOD GAS? YPatient's Anticoagulant? UNKNOWN Performed By: #### L 100.42588 ####[facility] [id number] [place] [address]# [phone] Potassium [Moles/Vol] 3.2 mmol/L Low 3.5-5.0 [facility] Comment on above: Order Comment: Campu s: MCKENNA BLOOD GAS? YPatient's Anticoagulant? UNKNOWN Performed By: #### L 100.55080 ####[facility] [id number] [place], [place] [address]Ph# [phone] SAMPLE SITE L RADIAL Normal [facility] Comment on above: Order Comment: Campu s: MCKENNA BLOOD GAS? YPatient's Anticoagulant? UNKNOWN Performed By: #### L 100.69143 ####[facility] [id number] [place] [address]# [phone] SAMPLE TYPE ARTERIAL Normal [facility] Comment on above: Order Comment: Campu s: MCKENNA BLOOD GAS? YPatient's Anticoagulant? UNKNOWN Performed By: #### L 100.73498 ####[facility] [id number] [place], [place] [address]Ph# [phone] Sodium [Moles/Vol] 147 mmol/L Normal 136-148 [facility] Comment on above: Order Comment: Campu s: MCKENNA BLOOD GAS? YPatient's Anticoagulant? UNKNOWN Performed By: #### L 100.68626 ####[facility] [id number] [place], [place] [address]Ph# [phone] CBC W/DIFFon 08-11-2020 BAND ABS 0.94 K/CU MM Normal [facility] Comment on above: Order Comment: Campu s: M Performed By: #### L 200.45722 ####[facility] [id number] [place], [place] [address]Jj# [phone] Band form neutrophils/100 WBC (Bld) 6.0 % Normal 0-7 [facility] Comment on above: Order Comment: Campu s: M Performed By: #### L 200.38531 ####[facility] [id number] [place], [place] [address]Ph# [phone] EOS ABS 0.94 K/CU MM High 0-0.5 [facility] Comment on above: Order Comment: Campu s: M Performed By: #### L 200.98818 ####[place] [address]Ph# [phone] Eosinophils/100 WBC (Bld) 6.0 % High 0-5 [facility] Comment on above: Order Comment: Campu s: M Performed By: #### L 200.79193 ####[facility] [id number] [place], [place] [address]Ph# [phone] HYPO 1+ Normal [facility] Comment on above: Order Comment: Campu s: M Performed By: #### L 200.16465 ####[facility] [id number] [place], [place] [address]Ph# [phone] Lymphocytes (Bld) [#/Vol] 0.31 K/CU MM Low 0.9-4.4 [facility] Comment on above: Order Comment: Campu s: M Performed By: #### L 200.17594 ####[facility] [id number] [place] [address]Tl# [phone] Lymphocytes/100 WBC (Bld) 2.0 % Low 20-40 [facility] Comment on above: Order Comment: Campu s: M Performed By: #### L 200.56216 ####[facility] [id number] [place], [place] [address]Ph# [phone] META % 1.0 % Normal [facility] Comment on above: Order Comment: Campu s: M Performed By: #### L 200.28669 ####[facility] [id number] [place], [place] [address]Ut# [phone] META ABS 0.16 K/CU MM Normal [facility] Comment on above: Order Comment: Campu s: M Performed By: #### L 200.19932 ####[facility] [id number] [place], [place] [address]Be# [phone] MONO ABS 0.63 K/CU MM Normal 0.1-1.1 [facility] Comment on above: Order Comment: Campu s: M Performed By: #### L 200.47073 ####[address] [address]Ef# [phone] Monocytes/100 WBC (Bld) 4.0 % Normal 2-10 [facility] Comment on above: Order Comment: Campu s: M Performed By: #### L 200.03862 ####[facility] [id number] [place] [address]Og# [phone] MYELO ABS 0.16 K/CU MM Normal [facility] Comment on above: Order Comment: Campu s: M Performed By: #### L 200.83762 ####[facility] [id number] [place], [place] [address]Lh# [phone] MYELOCYTE % 1.0 % Normal [facility] Comment on above: Order Comment: Campu s: M Performed By: #### L 200.51297 ####[facility] [id number] [place], [place] [address]Ea# [phone] NEUTROPHIL ABS 12.56 K/CU MM High 2.0-8.3 [facility] Comment on above: Order Comment: Campu s: M Performed By: #### L 200.80524 ####[facility] [id number] [place], [place] [address]Gi# [phone] Neutrophils/100 WBC (Bld) 80.0 % High 45-75 [facility] Comment on above: Order Comment: Campu s: M Performed By: #### L 200.13454 ####[facility] [id number] [place], [place] [address]Cx# [phone] Platelets (Bld) [#/Vol] ADEQUATE Normal [facility] Comment on above: Order Comment: Campu s: M Performed By: #### L 200.58212 ####[facility] [id number] [place] [address]Fu# [phone] PLT MORPH LARGE FORMS NOTED Normal [facility] Comment on above: Order Comment: Campu s: M Performed By: #### L 200.58491 ####[facility] [id number] [place] [address]Cl# [phone] POLY 1+ Normal [facility] Comment on above: Order Comment: Campu s: M Performed By: #### L 200.89108 ####[facility] [id number] [place], [place] [address]Ph# [phone] TOXIC GRAN PRESENT Normal [facility] Comment on above: Order Comment: Campu s: M Performed By: #### L 200.51320 ####[facility] [id number] [place], [place] [address]Te# [phone] Erythrocyte distribution width (RBC) [Ratio] 16.0 % High 11-14.5 [facility] Comment on above: Order Comment: Campu s: M Performed By: #### L 200.44540 ####[facility] [id number] [place] [address]Os# [phone] Hematocrit (Bld) [Volume fraction] 26.1 % Low 35.0-47.0 [facility] Comment on above: Order Comment: Campu s: M Performed By: #### L 200.38393 ####[facility] [id number] [place] [address] 20[address]Ok# [phone] Hemoglobin (Bld) [Mass/Vol] 8.0 g/dL Low 11.5-15.5 [facility] Comment on above: Order Comment: Campu s: M Performed By: #### L 200.45938 ####[facility] [id number] [place] [address]Ut# [phone] MCHC (RBC) [Mass/Vol] 30.7 g/dL Low 32.0-36.0 [facility] Comment on above: Order Comment: Campu s: M Performed By: #### L 200.46744 ####[facility] [id number] [place] [address] 18[address]Bz# [phone] MCV (RBC) [Entitic vol] 96.3 fL Normal 80.0-99.0 M [facility] Comment on above: Order Comment: Campu s: M Performed By: #### L 200.37281 ####[address] [address]Cq# [phone] Nucleated RBC/100 WBC (Bld) [Ratio] 0.0 % Normal Less than 1 [facility] Comment on above: Order Comment: Campu s: M Performed By: #### L 200.75269 ####[facility] [id number] [place] [address]Kt# [phone] Platelet mean volume (Bld) [Entitic vol] 12.0 fL Normal 9.4-12.4 [facility] Comment on above: Order Comment: Campu s: M Performed By: #### L 200.11730 ####[facility] [id number] [place] [address]Rv# [phone] Platelets (Bld) [#/Vol] 174 K/CU MM Normal 150-450 [facility] Comment on above: Order Comment: Campu s: M Performed By: #### L 200.48920 ####[facility] [id number] [place], [place] [address]Yx# [phone] RBC (Bld) [#/Vol] 2.71 M/CU MM Low 3.90-5.30 [facility] Comment on above: Order Comment: Campu s: M Performed By: #### L 200.53399 ####[facility] [id number] [place], [place] [address]Gq# [phone] WBC (Bld) [#/Vol] 15.7 K/CUMM High 4.5-11.0 [facility] Comment on above: Order Comment: Campu s: M Performed By: #### L 200.73980 ####[facility] [id number] [place], [place] [address]Mb# [phone] CMPon 08-11-2020 Albumin [Mass/Vol] 1.9 g/dL Low 3.2-5.0 [facility] Comment on above: Order Comment: Abundiou s: M Minimal Draw: Y Performed By: #### L 500.85981, L500.11714 #### [facility] [address] [place] [address] Albumin/Globulin [Mass ratio] 0.6 {ratio} Low 0.8-2.0 [facility] Comment on above: Order Comment: Abundiou s: M Minimal Draw: Y Performed By: #### L 500.09414, L500.36078 #### [facility] [address] [place] [address] ALK PHOS 123 U/L High 45-117 [facility] Comment on above: Order Comment: Abundiou s: M Minimal Draw: Y Performed By: #### L 500.72447, L500.13480 #### [facility] [place] [address] ALT [Catalytic activity/Vol] 19 U/L Normal 13-61 [facility] Comment on above: Order Comment: Abundiou s: M Minimal Draw: Y Result Comment: RESU LTS MAY BE FALSELY DEPRESSED AFTER THE ADMINISTRATION OF SULFASALAZINE AND/OR SULFAPYRIDINE. Performed By: #### L 500.19837, L500.47866 #### [facility] [address] [place] [id number] Anion gap [Moles/Vol] 5 mmol/L Normal 5-16 [facility] Comment on above: Order Comment: Abundiou s: M Minimal Draw: Y Performed By: #### L 500.30457, L500.56007 #### [facility] [address] [place] [address] BILI TOTAL 0.30 MG/DL Normal 0.2-1.0 [facility] Comment on above: Order Comment: Abundiou s: M Minimal Draw: Y Performed By: #### L 500.58702, L500.92282 #### [facility] [address] [place] [address] Calcium [Mass/Vol] 8.0 mg/dL Low 8.5-10.5 [facility] Comment on above: Order Comment: Maciel s: M Minimal Draw: Y Result Comment: NOTE NEW NORMAL RANGE DUE TO REAGENT CHANGE Performed By: #### L 500.36514, L500.18357 #### [facility] [address] [place] [address] Chloride [Moles/Vol] 114 mmol/L High 98-107 [facility] Comment on above: Order Comment: Maciel s: M Minimal Draw: Y Performed By: #### L 500.76104, L500.76792 #### [facility] [address] [place] [address] CO2 [Moles/Vol] 34.0 mmol/L High 21-32 [facility] Comment on above: Order Comment: Abundiou s: M Minimal Draw: Y Performed By: #### L 500.76813, L500.44667 #### [facility] [place] [address] Creatinine [Mass/Vol] 0.67 mg/dL Normal 0.510-0.950 [facility] Comment on above: Order Comment: Maciel s: M Minimal Draw: Y Result Comment: Geraldine ents receiving either N-Acetylcysteine (NAC) or Metamizole prior to venipuncture, may have falsely depressed results. Performed By: #### L 500.99226, L500.11085 #### [facility] [address] [place] [address] Globulin (S) [Mass/Vol] 3.2 g/dL Normal 2.2-4.2 M [facility] Comment on above: Order Comment: Abundiou s: M Minimal Draw: Y Performed By: #### L 500.37003, L500.85420 #### [facility] [address] [place] [address] Glucose [Mass/Vol] 173 mg/dL High 70-100 [facility] Comment on above: Order Comment: Maciel s: M Minimal Draw: Y Result Comment: 70-1 00- Normal Fasting; 100-125 Impaired Fasting; greater than 126 on more than one result- Diabetes. ADA guidelines. Results may be falsely elevated after the administration of Sulfapyridine. Results may be falsely depressed after the administration of Sulfasalazine. Performed By: #### L 500.44466, L500.95768 #### [facility] [address] [place] [address] Potassium [Moles/Vol] 3.4 mmol/L Low 3.5-5.1 [facility] Comment on above: Order Comment: Maciel s: M Minimal Draw: Y Performed By: #### L 500.60054, L500.55381 #### [facility] [address] [place] [address] Protein [Mass/Vol] 5.1 g/dL Low 6.0-8.5 [facility] Comment on above: Order Comment: Abundiou s: M Minimal Draw: Y Performed By: #### L 500.76570, L500.64814 #### [facility] [place] [address] SGOT (AST) 26 U/L Normal 8-34 [facility] Comment on above: Order Comment: Campu s: M Minimal Draw: Y Result Comment: RESU LTS MAY BE FALSELY DEPRESSED AFTER THE ADMINISTRATION OF SULFASALAZINE AND/OR SULFAPYRIDINE. Performed By: #### L 500.22905, L500.06040 #### [facility] [address] [place] [address] Sodium [Moles/Vol] 153 mmol/L High 136-145 [facility] Comment on above: Order Comment: Campu s: M Minimal Draw: Y Performed By: #### L 500.68661, L500.58501 #### [facility] [address] [place] [address] Urea nitrogen [Mass/Vol] 18 mg/dL Normal 7-26 [facility] Comment on above: Order Comment: Campu s: M Minimal Draw: Y Performed By: #### L 500.18707, L500.80813 #### [facility] [address] [place], [place] [id number] Urea nitrogen/Creatinine [Mass ratio] 27 mg/mg High 15-24 [facility] Comment on above: Order Comment: Campu s: M Minimal Draw: Y Performed By: #### L 500.50233, L500.26969 #### [facility] [address] [place], [place] [id number] GFR ESTon 08-11-2020 IF AMER Greater than 60 Normal [facility] Comment on above: Order Comment: Campu s: M Minimal Draw: Y Performed By: #### L 500.46100, L500.73427 #### [facility] [address] [place] [id number] IF non-AFR AMER Greater than 60 Normal [facility] Comment on above: Order Comment: Campu s: M Minimal Draw: Y Performed By: #### L 500.53667, L500.89063 #### [facility] [address] [place], [place] [id number] # [phone] [facility] 08-11-2020 PROG [facility] Patient Name: ANDRE BLANCA [id number] Date of : 48 [place], [place] [address] Unit Number: [id number] Progress Note-Hospitalist Patient Status: ADM IN Attending Doctor: Marta Horvath DO Service Date: 08/11/20 1315 Chief Complaint Chief Complaint Syncope Subjective S: (2 ROS minimum) Patient confused and not thought to be reliable historian. ANO x1 to self. Patient denied answer my review of systems questions appropriately kept repeating her name. Objective (ROS) Nursing Vitals Vital Signs (Last) Result Date Time Pulse Ox 93 08/11 1300 B/P 113/44 08/11 1300 B/P Mean 56 08/11 1300 O2 Delivery HIGH FLOW NC 08/11 1300 O2 Flow Rate 59 08/11 1300 Temp 99.4 08/11 1300 Pulse 101 08/11 1300 Resp 22 08/11 1300 Physical Exam Physical Examination Notes General: Elderly female, patient is alert and oriented x1 and is in no acute respiratory distress HEENT: Normal cephalic, atraumatic, PERRLA Lungs: Some coarse breath sounds bilaterally, some transmitted upper airway sounds. No wheezing noted Cardiac: Regular rhythm and rate, no murmurs, no rubs. Abdomen: Soft, nontender, nondistended, bowel sounds are active. Extremities: No edema, cyanosis, or clubbing. Skin: No rashes or breakdown. Musculoskeletal: Normal MS exam, moves all extremities Lymphatic: Negative cervical, supra-clavicular, groin lymphadenopathy. Neurologic: Cranial nerves from II-XII intact grossly, no focal deficits. Psychiatry: Some confusion noted Diagnostic Data: Lab 24hr (CBC/BMP Fishbone) 08/11/20 0538: Specimen Type ARTERIAL, Sample Site L RADIAL, Patient Temperature 37.2, pH 7.41, pCO2 52.4 H, pO2 71 L, HCO3 32.5 H, Base Excess 7.0 H, ABG O2 Sat (Measured) 92.7, ABG Oximetry 94, ABG O2 Content 11.9 L, ABG Hemoglobin 9.1 L, ABG Reduced Hgb 6.8 H, ABG Carboxyhemoglobin 0.2, ABG Methemoglobin 0.3 L, ABG O2 Capacity 12.6, Doug Test POSITIVE, Sodium 147, Potassium 3.2 L, Glucose 174 H, Lactate 0.94, Patient Equipment HIGH FLOW CANNULA, Liter Flow 45.00, FiO2 % 52, Ionized Calcium 1.10 L 08/11/20 0500: [Embedded Image Not Available] Anion Gap 5, Est GFR ( Amer) Greater than 60, Est GFR (Non-Af Amer) Greater than 60 , BUN/Creatinine Ratio 27 H, Glucose 173 H, Total Calcium 8.0 L, Total Bilirubin 0.30, AST 26, ALT 19, Alkaline Phosphatase 123 H, Serum Total Protein 5.1 L, Albumin 1.9 L, Globulin 3.2, Albumin/Globulin Ratio 0.6 L, RBC 2.71 L, MCV 96.3, MCHC 30.7 L, RDW 16.0 H, MPV 12.0 , Seg Neutrophils % 80.0 H, Band Neutrophils % 6.0, Lymphocytes % 2.0 L, Monocytes % 4.0, Eosinophils % 6.0 H, Metamyelocytes % 1.0, Myelocytes % 1.0, Neutrophils # 12.56 H, Band Neutrophils # 0.94, Lymphocytes # 0.31 L, Monocytes # 0.63, Eosinophils # 0.94 H, Metamyelocytes # 0.16, Myelocytes # 0.16, Nucleated RBCs 0.0, Toxic Granulation PRESENT, Platelet Estimate ADEQUATE, Platelet Morphology LARGE FORMS NOTED, Polychromasia 1+, Hypochromasia 1+ Assessment and Plan Conclusion 1. Pneumonia Patient was under treatment for aspiration. Has been on Unasyn for antibiotic coverage. White blood cell count down to 15.7 today. Chest x-ray was repeated this morning and interstitial and alveolar opacities remain bilaterally without significant change per the radiologist read. On Mon 12:30p Aug 10, 2020 DELIA ADAM wrote Pulmonology/critical care has been following. Patient was under treatment for aspiration. Patient has been on Unasyn for antibiotic coverage. White blood cell count remains elevated at 18.7. Chest x-ray today was read as no significant interval change in noted diffuse interstitial and alveolar opacities present bilaterally On Sun 1:21p Aug 09, 2020 DELIA ADAM wrote Some concern that this may be secondary to aspiration. Patient has been on Unasyn. Strep and Legionella antigens were previously checked and were negative. White blood cell count at 19.1 today. Pulmonology/critical care has been following. Chest x-ray today was read as worsening bilateral hazy interstitial pulmonary opacities left greater than right. Patient remains on high flow On Sat 3:Aug 08, 2020 DELIA ADAM wrote Some concern this may been secondary to aspiration. Patient continues with Unasyn. White blood cell count on last check was 18.7. Patient was previously checked for strep and Legionella antigens and was negative. Pulmonology has been following. Chest x-ray today was read as worsening appearance of the lungs. Bilateral pulmonary infiltrates were noted. Patient was on high flow 2. Acute respiratory failure with hypoxia Likely secondary to recent pneumonia. Patient still requiring high flow nasal cannula, wean O2 as tolerated, pulmonary critical care has been following and managing On MonAug 10, 2020 DELIA ADAM wrote Patient enoc on high flow nasal cannula, wean O2 as tolerated. Chest x-ray showing findings concerning for pneumonia for which patient has been receiving treatment with Unasyn. Pulmonary critical care following On Sun :Aug 09, 2020 DELIA ADAM wrote Patient remains on high flow, chest x-ray showing findings concerning for pneumonia On Sat :Aug 08, 2020 DELIA ADAM wrote Possibly secondary to recent pneumonia. Chest x-ray showing bilateral pulmonary infiltrates 3. TASHI (acute kidney injury) Patient with previous TASHI with creatinine up to 4.24, creatinine now 0.67 on last check. TASHI thought to be resolved On Mon:Aug 10, 2020 DELIA ADAM wrote TASHI thought to be improved, creatinine 0.72 on last check On Sun :Aug 09, 2020 DELIA ADAM wrote TASHI thought to be improved creatinine 0.76 on last check On Sat :Aug 08, 2020 DELIA ADAM wrote TASHI thought to be improved. Creatinine was previously as high as 4.24, was 0.76 on check this morning 4. Syncope Patient not thought to be reliable historian difficult to assess. No known loss of consciousness. Patient previously had some orthostatic vitals. Echocardiogram was performed which showed an EF of 60 to 65%. Patient had received fluids On MonAug 10, 2020 DELIA ADAM wrote No current complaints of lightheadedness or dizziness. However patient is a very poor historian as she is only ANO x1. Previously had positive orthostatic vitals. Echo was performed showed an EF of 60 to 65%. Patient was given fluids On MonAug 09, 2020 DELIA ADAM wrote No current complaints of lightheadedness or dizziness a little patient is not thought to be a great historian currently. She previously had previous positive orthostatic vitals. Echo had been performed which showed an EF of 60 to 65% On Sat :Aug 08, 2020 DELIA ADAM wrote No current complaints of lightheadedness or dizziness. Patient had positive orthostats noted. Echocardiogram showed an EF of 60 to 65% 5. Hypokalemia Potassium level low today at 3.4 patient was ordered replacement, recheck in a.m., check magnesium level in a.m. On MonAug 10, 2020 DELIA ADAM wrote Potassium level somewhat better overall currently 3.5. Replace as needed On MonAug 09, 2020 DELIA ADAM wrote Improvement in potassium level overall to 3.8 On Sat :Aug 08, 2020 DELIA ADAM wrote Potassium level low at 3.4 today. Patient was ordered IV potassium replaced, check magnesium level in the a.m. 6. Hypernatremia Sodium level 153 again today. Patient's free water flushes are being increased, follow sodium level in a.m. On MonAug 10, 2020 DELIA ADAM wrote Sodium level slightly worse today at 153. Patient on free water flushes with tube feeds. Will increase free water flushes On MonAug 09, 2020 DELIA ADAM wrote Sodium level 151 on last check and was increasing. Adding free water with tube feeds Disclaimer This dictation was created using voice recognition software. Phonetic and/or minor grammatical errors may exist. eSign Date and Time Delia Adam MD Verified/Reviewed by 08/11/20 1330 Normal [facility] Progress Note-Hospitalist [facility] PROG.Rocael 08-11-2020 PROG.[facility] Patient Name: ANDRE BLANCA [address] Date of : [address] [place] [address] Unit Number: [id number] Progress Note-Adjuster And Inspector Patient Status: ADM IN Attending Doctor: Marta Horvath DO Service Date: 08/11/20 1248 Progress Note-Adjuster And Inspector Subjective Subjective: Pleasantly confuse, alert and oriented to self only, on HFNC 40L FIO2 60% currently on precedex gtt pt c/o sob, denies of chest pain Tolerating tube feeds Objective Vital Signs: Vital Signs (Last) Result Date Time Pulse Ox 93 08/11 1300 B/P 113/44 08/11 1300 B/P Mean 56 08/11 1300 O2 Delivery HIGH FLOW NC 08/11 1300 O2 Flow Rate 59 08/11 1300 Temp 99.4 08/11 1300 Pulse 101 08/11 1300 Resp 22 08/11 1300 IandO 24 Hour Summary 08/11 0000 Intake Total 2953 Output Total 1090 Balance 1863 Intake, IV 1855 Intake, Oral 0 Intake, Tube 978 Feeding Intake, Tube 120 Irrigant Number 0 Unmeasured Voids Output, Stool 0 Output, Urine 1090 Patient 237 lb Weight Exam: General: Somnolent on precedex, able answer questions about self Heart: RRR,nl s1/s2 Lungs: Course BS bilaterally R > L; expiratory wheezing noted, Abdomen: Soft, nt, nd, + BS, obese Extremities: No LE edema Neurologic: Answering questions about self Medications: Medications Current Sig/Antonella Start time Last Medication Dose Route Stop Time Status Admin Acetaminophen 500 MG Q6HPRN PRN 08/04 1930 AC 08/11 (TYLENOL ORAL LIQ) TUBE 09 Albuterol Sulfate 2.5 MG Q6HPRN PRN 07/28 0030 AC (VENTOLIN/PROVENTIL INH 2.5MG/3ML INH.NEB) Albuterol/Ipratropium 3 ML Q4HRT 08/04 2030 AC 08/11 (DUONEB 0.5-3 MG/3 INH 1210 ML INH.NEB) Albuterol/Ipratropium 3 ML Q2HPRN PRN 07/28 0100 AC (DUONEB 0.5-3 MG/3 INH ML INH.NEB) Ampicillin Sodium/ 3 GM Q12H@18 08/04 1800 AC 08/11 Sulbactam Sodium IV 08/11 1759 0536 (UNASYN VIAL) Sodium Chloride 100 ML (Sodium Chloride 0.9%) Budesonide 0.5 MG BID 08/04 2100 AC 08/11 (PULMOCORT 0.5MG/2ML INH 0814 INH.NEB) Buspirone HCl 20 MG TIDWM 08/05 0800 AC 08/11 (BUSPAR TAB) TUBE 1126 Carbamazepine 200 MG TIDWM 08/05 0800 AC 08/11 (TEGRETOL TAB) TUBE 1126 Clopidogrel Bisulfate 75 MG QDAY 08/05 0900 AC 08/11 (PLAVIX TAB) TUBE 0831 Dexmedetomidine HCl 400 MCG TITRATE(SEE SHAUNA VFS) 08/07 1330 AC 08/11 (PRECEDEX VIAL) IV 1239 Sodium Chloride 96 ML (Sodium Chloride 0.9%) Docusate Sodium 100 MG BID 08/11 1230 AC 08/11 (COLACE ORAL LIQ) TUBE 1216 Enoxaparin Sodium 40 MG QDAY 07/28 0900 AC 08/11 (LOVENOX D.SYR) SC 0830 Esomeprazole 40 MG BIDAC 08/05 0700 AC 08/11 Magnesium TUBE 0538 (NEXIUM CAP (TXI)) Fluoxetine HCl 20 MG QDAY 08/05 0900 AC 08/11 (PROZAC CAP) TUBE 0831 Guaifenesin 10 ML TID 08/11 1400 AC (ROBITUSSIN 200MG/10 TUBE ML ORAL LIQ) Haloperidol Lactate 2 MG Q4HPRN PRN 08/07 0900 AC 08/11 (HALDOL AMP) IV 1057 Heparin Sodium See Dose Q24H 08/06 0900 AC 08/06 (Porcine) Insts (1) IV 0807 (HEP-LOCK *10*UNITS/ ML IV D.SYR.PF) Heparin Sodium See Dose PRN PRN 08/05 1500 AC (Porcine) Insts (2) IV (HEP-LOCK *10*UNITS/ ML IV D.SYR.PF) Levothyroxine Sodium 0.125 MG QDAYAC 08/09 0700 AC 08/11 (SYNTHROID TAB) PO 0537 Loperamide HCl 2 MG PRN PRN 08/04 193 AC (IMODIUM AD ORAL TUBE LIQUID UDC) Melatonin 10 MG QHS 08/09 2200 AC 08/10 (MELATONIN TAB) TUBE 2142 Menthol/Methyl 1 APPL BIDPRN PRN 07/28 0030 AC 08/11 Salicylate TP 1126 (MIHIR ALVAREZ T.CREAM) Ondansetron HCl 4 MG BIDPRN PRN 08/04 193 AC (ZOFRAN TAB) TUBE Ondansetron HCl 4 MG Q6HPRN PRN 07/27 2100 AC 08/04 (ZOFRAN VIAL) IV 212 Polyethylene Glycol 17 GM QDAY 08/11 1200 AC 08/11 (MIRALAX PACKT) TUBE 1216 Pravastatin Sodium 40 MG QHS 08/04 2200 AC 08/10 (PRAVACHOL TAB) TUBE 2143 Pregabalin 150 MG BID 08/04 2100 AC 08/11 (LYRICA CAP) TUBE 0837 Quetiapine Fumarate 100 MG QHS 08/08 2200 AC 08/10 (SEROQUEL TAB) TUBE 2142 Risperidone 3 MG BID 08/09 2100 AC 08/11 (RISPERDAL TAB) TUBE 0831 Sodium Chloride 4 ML QIDRT 08/10 1230 AC 08/11 (Sodium Chloride 3% INH 1210 INH.neb) Sodium Chloride See Dose Q24H 08/06 0900 AC 08/10 (Sodium Chloride Insts (3) IV 0825 0.9% FLUSH D.SYR) Sodium Chloride See Dose PRN PRN 08/05 1500 AC (Sodium Chloride Insts (4) IV 0.9% FLUSH D.SYR) Dose Instructions: (1)Heparin Sodium (Porcine) (HEP-LOCK *10*UNITS/ML IV D.SYR.PF): 50-200 UNITS (2)Heparin Sodium (Porcine) (HEP-LOCK *10*UNITS/ML IV D.SYR.PF): 50-200 UNITS (3)Sodium Chloride (Sodium Chloride 0.9% FLUSH D.SYR): 10-40 ML (4)Sodium Chloride (Sodium Chloride 0.9% FLUSH D.SYR): 10-40 ML Radiology Impressions: Recent Impressions (48H) COMPUTERIZED TOMOGRAPHY - CT HEAD/BRAIN W/O CON 08/095 Report Impression - Status: SIGNED Entered: 08/10/2020 0752 IMPRESSION: Atrophy and remote ischemic change. No acute abnormalities. Impression By: JASON PATIÑO M.D. RADIOLOGY - PORTABLE CHEST 08/10 0430 Report Impression - Status: SIGNED Entered: 08/10/2020 0714 IMPRESSION: No significant interval change. Impression By: SILVIO BURKETT M.D. RADIOLOGY - PORTABLE CHEST 08/11 0350 Report Impression - Status: SIGNED Entered: 08/11/2020 0736 IMPRESSION: No significant interval change. Impression By: SILVIO BURKETT M.D. ABG: ABG-Last Test Result Date Time Blood Gas Specimen Type ARTERIAL 08/11 538 Sample Site L RADIAL 08/11 538 Patient Temperature (C) 37.2 08/11 538 pH (7.35 - 7.45) 7.41 08/11 538 pCO2 (35 - 45 MMHG) 52.4 H 08/11 538 pO2 (80 - 100 MMHG) 71 L 08/11 538 HCO3 (22 - 26 MMOL/L) 32.5 H 08/11 538 Base Excess (-2.0 - 2.0 MML/L) 7.0 H 08/11 538 ABG O2 Sat (Measured) (90 - 100 %) 92.7 08/11 538 ABG Oximetry (%) 94 08/11 538 ABG O2 Content (15.7 - 21.6 mL/dL) 11.9 L 08/11 538 ABG Hemoglobin (10 - 16 GM/DL) 9.1 L 08/11 538 ABG Reduced Hgb (0 - 5 %) 6.8 H 08/11 538 ABG Carboxyhemoglobin (0 - 10 %) 0.2 08/11 538 ABG Methemoglobin (0.4 - 1.5 %) 0.3 L 08/11 538 ABG O2 Capacity (mL/dL) 12.6 08/11 538 Doug Test POSITIVE 08/11 538 Sodium (136 - 148 mmol/L) 147 08/11 538 Potassium (3.5 - 5.0 MMOL/L) 3.2 L 08/11 538 Glucose (60 - 80 MG/DL) 174 H 08/11 538 Lactate (0.40 - 2.00 MMOL/L) 0.94 08/11 538 Patient Equipment HIGH FLOW CANNULA 08/11 538 Liter Flow (L/M) 45.00 08/11 538 FiO2 % (%) 52 08/11 538 Lab Results: Lab 24hr (CBC/BMP Fishbone) 08/11/20 05: Specimen Type ARTERIAL, Sample Site L RADIAL, Patient Temperature 37.2, pH 7.41, pCO2 52.4 H, pO2 71 L, HCO3 32.5 H, Base Excess 7.0 H, ABG O2 Sat (Measured) 92.7, ABG Oximetry 94, ABG O2 Content 11.9 L, ABG Hemoglobin 9.1 L, ABG Reduced Hgb 6.8 H, ABG Carboxyhemoglobin 0.2, ABG Methemoglobin 0.3 L, ABG O2 Capacity 12.6, Doug Test POSITIVE, Sodium 147, Potassium 3.2 L, Glucose 174 H, Lactate 0.94, Patient Equipment HIGH FLOW CANNULA, Liter Flow 45.00, FiO2 % 52, Ionized Calcium 1.10 L 08/11/20 0500: [Embedded Image Not Available] Anion Gap 5, Est GFR ( Amer) Greater than 60, Est GFR (Non-Af Amer) Greater than 60 , BUN/Creatinine Ratio 27 H, Glucose 173 H, Total Calcium 8.0 L, Total Bilirubin 0.30, AST 26, ALT 19, Alkaline Phosphatase 123 H, Serum Total Protein 5.1 L, Albumin 1.9 L, Globulin 3.2, Albumin/Globulin Ratio 0.6 L, RBC 2.71 L, MCV 96.3, MCHC 30.7 L, RDW 16.0 H, MPV 12.0 , Seg Neutrophils % 80.0 H, Band Neutrophils % 6.0, Lymphocytes % 2.0 L, Monocytes % 4.0, Eosinophils % 6.0 H, Metamyelocytes % 1.0, Myelocytes % 1.0, Neutrophils # 12.56 H, Band Neutrophils # 0.94, Lymphocytes # 0.31 L, Monocytes # 0.63, Eosinophils # 0.94 H, Metamyelocytes # 0.16, Myelocytes # 0.16, Nucleated RBCs 0.0, Toxic Granulation PRESENT, Platelet Estimate ADEQUATE, Platelet Morphology LARGE FORMS NOTED, Polychromasia 1+, Hypochromasia 1+ DVT Prophylaxis: scd Gastrointestinal Prophylaxis: Proton Pump Inhibitor-PPI Assessment/Plan Assessment/Problem List: 1. Acute hypoxemic respiratory failure 70 y/o with PMHx of COPD, HFpEF, CVA, and Former Tobacco Abuse presented to [facility] emergency department on 07/27 secondary to Syncope and was admitted to telemetry. Our service was consulted on 08/04 secondary to Worsening Hypoxemia requiring HFNC. She is being transferred to the D-ICU. ASSESSMENT: - LLL Aspiration Pneumonia - Acute Hypoxemic Respiratory Failure 2/2 above - Nausea and Vomitting - Encephalopathy - TASHI 2/2 Dehydration - HFpEF (EF 60-65% per Echo 07/2020) - Tobacco Abuse, in Remission - Obesity - Hx of COPD (no PFTs on file) - Hx of CVA -History of multiple falls -History of psychiatric illness PLAN: * Currently oxygenating adequately on 40L/60% FiO2 via HFNC. Continue to wean with goal > SpO2 88% * CXR 08/09 shows worsening bilateral airspace disease. * judicious precedex gtt, wean as tolerated. Patient with long history of psychiatric illness. * No documented fevers. Mild leukocytosis. Urine Ag/SARS-CoV-2 negative. * c/w IV Unasyn (Day #02/17) for aspiration pneumonia * Abdominal X-ray ==> neg for ileus/obstruction, NG tube in for feeds. * c/w TFs , add free water *(hypernatremia) increase to 250cc q4H, no improvement in hypernatremia * Continue scheduled and PRN Duonebs. Add Budesonide. Resume home Symbicort upon discharge * Continue Incentive Spirometry. 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 Patient spent time at the [facility] according to son, that is the facility that she met her . * History of multiple falls in the past. * F/E/N: HL fluids/replete lytes as needed /c/w TFs * GI/DVT Prophylaxis: PO nexium/Lovenox * CODE STATUS: DNR Comfort Care arrest, discussed with son Giana Blanca, area code [phone]. Did also discuss if patient is functionally declining, consider changing CODE STATUS to comfort only. Patient is requiring higher oxygen than yesterday. Will watch carefully with full medical therapy. Collaborating Physician: Jayesh Loera MD Physician Attestation Statement of Attestation I confirm that I have evaluated the patient, reviewed the history and physical, medications, diagnostic results, physical exam, assessment and plan of care of the patient. Agree with nurse practitioners note. Patient seen and evaluated dependently. Patient seems more verbal, will diffuse and difficult to read direct on answering any type of questions. Patient does have history again of significant psych history in the past. Will consult psychiatric liaison. Patient's son was updated, he states patient has been depressed. Please see orders. Total care care time 35 minutes Disclaimer This dictation was created using voice recognition software. Phonetic and/or minor grammatical errors may exist. eSign Date and Time Jayesh Loera MD Verified/Reviewed by 08/11/20 9251 Trina Johnson GENERAL LABOR [employer] OPERATOR [facility] Progress Note-Adjuster And Inspector [facility] 08-11-2020 PT Progress Note [facility] PTPN Physical Therapy Inpatient Missed Visit Note Attempted to visit patient for therapy, but was unable for the following reasons: Clinical Reason Pt. remains in 4-point restraints, per RN received Haldol this a.m.; unable to participate in therapy this date. Will continue to follow. Return Plan: Will return as soon as possible for another attempt. If there are any questions regarding this service, please contact the Acute Therapy Department at extension [phone] Services: Total Billed: 0 minutes (Timed: 0, Untimed: 0) 0.00 Untimed: [] PT Treatment- General ORDER Signed by: Ioana Holden, 08/11/2020 12:15:09 [facility] PATIENT NAME: ANDRE BLANCA [facility] Dr. Andrea MEDICAL REC #: [id number] [place] [address] ADMIT DATE: 07/27/20 SERVICE DATE: 08/11/20 Physical Therapy Progress Note ATTENDING PHY: Marta Horvath DO Normal [facility] BMPon 08-10-2020 Anion gap [Moles/Vol] 5 mmol/L Normal 5-16 [facility] Comment on above: Order Comment: Campu s: M Performed By: #### L 500.72385, L500.78881, L500.28212, L500.91985 ####[id number] [place], [place] [address]Jc# [phone] Calcium [Mass/Vol] 7.7 mg/dL Low 8.5-10.5 [facility] Comment on above: Order Comment: Campu s: M Result Comment: NOTE NEW NORMAL RANGE DUE TO REAGENT CHANGE Performed By: #### L 500.07056, L500.44705, L500.08092, L500.58485 ####[facility] [id number] [place], [place] [address]Ea# [phone] Chloride [Moles/Vol] 116 mmol/L High 98-107 [facility] Comment on above: Order Comment: Campu s: M Performed By: #### L 500.48342, L500.66149, L500.39168, L500.59427 ####[facility] [id number] [place], [place] [address]Pw# [phone] CO2 [Moles/Vol] 32.0 mmol/L Normal 21-32 [facility] Comment on above: Order Comment: Campu s: M Performed By: #### L 500.42753, L500.83138, L500.94932, L500.24984 ####[facility] [id number] [place], [place] [address]Jd# [phone] Creatinine [Mass/Vol] 0.72 mg/dL Normal 0.510-0.950 [facility] Comment on above: Order Comment: Abundiou s: M Result Comment: Geraldine ents receiving either N-Acetylcysteine (NAC) or Metamizole prior to venipuncture, may have falsely depressed results. Performed By: #### L 500.36898, L500.70004, L500.36035, L500.16114 ####[facility] [id number] [place], [place] [address]Qj# [phone] Glucose [Mass/Vol] 186 mg/dL High 70-100 [facility] Comment on above: Order Comment: Abundiou s: M Result Comment: 70-1 00- Normal Fasting; 100-125 Impaired Fasting; greater than 126 on more than one result- Diabetes. ADA guidelines. Results may be falsely elevated after the administration of Sulfapyridine. Results may be falsely depressed after the administration of Sulfasalazine. Performed By: #### L 500.21131, L500.88359, L500.26940, L500.64022 ####[facility] [id number] [place], [place] [address]Lr# [phone] Potassium [Moles/Vol] 3.5 mmol/L Normal 3.5-5.1 [facility] Comment on above: Order Comment: Campu s: M Performed By: #### L 500.01056, L500.84472, L500.41303, L500.90408 ####[facility] [id number] [place], [place] [address]Ll# [phone] Sodium [Moles/Vol] 153 mmol/L High 136-145 [facility] Comment on above: Order Comment: Campu s: M Performed By: #### L 500.09003, L500.93886, L500.91140, L500.59865 ####[facility] [id number] [place], [place] [address]Bb# [phone] Urea nitrogen [Mass/Vol] 19 mg/dL Normal 7-26 [facility] Comment on above: Order Comment: Campu s: M Performed By: #### L 500.52713, L500.76823, L500.91273, L500.68078 ####[facility] [id number] [place], [place] [address]Fl# [phone] Urea nitrogen/Creatinine [Mass ratio] 26 mg/mg High 15-24 [facility] Comment on above: Order Comment: Campu s: M Performed By: #### L 500.80154, L500.11711, L500.70740, L500.43754 ####[facility] [id number] [place] [id number]# [phone] CBC W/DIFFon 08-10-2020 EOS ABS 0.56 K/CU MM High 0-0.5 [facility] Comment on above: Order Comment: Campu s: M Performed By: #### L 200.51953 #### [facility] [address] [place] [address] Eosinophils/100 WBC (Bld) 3.0 % Normal 0-5 [facility] Comment on above: Order Comment: Campu s: M Performed By: #### L 200.93789 #### [facility] [address] [place] [address] HYPO 1+ Normal [facility] Comment on above: Order Comment: Campu s: M Performed By: #### L 200.81684 #### [facility] [address] [place] [address] Lymphocytes (Bld) [#/Vol] 1.50 K/CU MM Normal 0.9-4.4 [facility] Comment on above: Order Comment: Campu s: M Performed By: #### L 200.02531 #### [facility] [address] [place], [place] [id number] Lymphocytes/100 WBC (Bld) 8.0 % Low 20-40 [facility] Comment on above: Order Comment: Campu s: M Performed By: #### L 200.69680 #### [facility] [place] [address] META % 2.0 % Normal [facility] Comment on above: Order Comment: Campu s: M Performed By: #### L 200.40862 #### [facility] [address] [place] [address] META ABS 0.37 K/CU MM Normal [facility] Comment on above: Order Comment: Campu s: M Performed By: #### L 200.52538 #### [facility] LABORATORY [address] [place] [address] MONO ABS 0.19 K/CU MM Normal 0.1-1.1 [facility] Comment on above: Order Comment: Campu s: M Performed By: #### L [id number] #### [facility] LABORATORY [address] [place] [address] Monocytes/100 WBC (Bld) 1.0 % Low 2-10 M [facility] Comment on above: Order Comment: Campu s: M Performed By: #### L [id number] #### [facility] LABORATORY [address] [place] [address] MYELO ABS 0.19 K/CU MM Normal [facility] Comment on above: Order Comment: Campu s: M Performed By: #### L [id number] #### [facility] LABORATORY [address] [place] [address] MYELOCYTE % 1.0 % Normal [facility] Comment on above: Order Comment: Campu s: M Performed By: #### L [id number] #### [facility] LABORATORY [address] [place] [address] NEUTROPHIL ABS 15.90 K/CU MM High 2.0-8.3 [facility] Comment on above: Order Comment: Campu s: M Performed By: #### L [id number] #### [facility] LABORATORY [address] [place] [address] Neutrophils/100 WBC (Bld) 85.0 % High 45-75 [facility] Comment on above: Order Comment: Campu s: M Performed By: #### L [id number] #### [facility] LABORATORY [address] [place], [place] [id number] Platelets (Bld) [#/Vol] ADEQUATE Normal [facility] Comment on above: Order Comment: Campu s: M Performed By: #### L [id number] #### [facility] LABORATORY [address] [place] [address] POLY 1+ Normal [facility] Comment on above: Order Comment: Campu s: M Performed By: #### L [id number] #### [facility] LABORATORY [address] [place] [address] Erythrocyte distribution width (RBC) [Ratio] 15.6 % High 11-14.5 [facility] Comment on above: Order Comment: Campu s: M Performed By: #### L 200.16387 #### [facility] LABORATORY [address] [place] [address] Hematocrit (Bld) [Volume fraction] 28.2 % Low 35.0-47.0 [facility] Comment on above: Order Comment: Campu s: M Performed By: #### L 200.29981 #### [facility] LAB[facility]ORY [address] [place], [place] [address] Hemoglobin (Bld) [Mass/Vol] 8.8 g/dL Low 11.5-15.5 [facility] Comment on above: Order Comment: Campu s: M Performed By: #### L [id number] #### [facility] LABORATORY [address] [place], [place] [address] MCHC (RBC) [Mass/Vol] 31.2 g/dL Low 32.0-36.0 [facility] Comment on above: Order Comment: Campu s: M Performed By: #### L [id number] #### [facility] LABORATORY [address] [place], [place] [address] MCV (RBC) [Entitic vol] 94.9 fL Normal 80.0-99.0 M [facility] Comment on above: Order Comment: Campu s: M Performed By: #### L [id number] #### [facility] LABORATORY [address] [place] [address] Nucleated RBC/100 WBC (Bld) [Ratio] 0.0 % Normal Less than 1 [facility] Comment on above: Order Comment: Campu s: M Performed By: #### L [id number] #### [facility] LABORATORY [address] [place] [address] Platelet mean volume (Bld) [Entitic vol] 11.6 fL Normal 9.4-12.4 [facility] Comment on above: Order Comment: Campu s: M Performed By: #### L [id number] #### [facility] LABORATORY [address] [place] [address] Platelets (Bld) [#/Vol] 183 K/CU MM Normal 150-450 [facility] Comment on above: Order Comment: Campu s: M Performed By: #### L [id number] #### [facility] LABORATORY [address] [place] [address] RBC (Bld) [#/Vol] 2.97 M/CU MM Low 3.90-5.30 [facility] Comment on above: Order Comment: Campu s: M Performed By: #### L [id number] #### [facility] LAB[facility]ATORY [address] [place] [address] WBC (Bld) [#/Vol] 18.7 K/CUMM High 4.5-11.0 [facility] Comment on above: Order Comment: Campu s: M Performed By: #### L 200.54543 #### [facility] LABORATORY [facility] [place] [address] GFR ESTon 08-10-2020 IF AMER Greater than 60 Normal [facility] Comment on above: Order Comment: Campu s: M Performed By: #### L 500.28613, L500.59811, L500.95472, L500.32895 ####[facility] [id number] [place], [place] [address]Oq# [phone] IF non-AFR AMER Greater than 60 Normal [facility] Comment on above: Order Comment: Campu s: M Performed By: #### L 500.44268, L500.48983, L500.45524, L500.94702 ####[facility] [id number] [place] [address] 46358Qm# [phone] IONIZED CAon 08-10-2020 IONIZED CA 1.08 MMOL/L Low 1.16-1.32 [facility] Comment on above: Order Comment: Campu s: M Performed By: #### L 200.92210 #### [facility] LABORATORY [facility] [place] [address] MAGNESIUMon 08-10-2020 Magnesium [Mass/Vol] 2.3 MG/CL Normal 1.6-2.6 [facility] Comment on above: Order Comment: Campu s: M Performed By: #### L 500.22412, L500.10012, L500.57467, L500.22734 ####[facility] [id number] [place] [address] 30560Hb# [phone] OTPNon 08-10-2020 OT Progress Note Normal [facility] OTPN Occupational Therapy Inpatient Treatment Note Medical Diagnosis: Acute hypoxemic respiratory failure, Syncope, pneumonia, hypothyroidism OCCUPATIONAL PROFILE AND HISTORY Demographics: Age: 70Y Gender: Female Primary Language: Estonian Preferred Language: Estonian Referring Service/Team: Medicine Rehabilitation Precautions/Restrictio ns: fall risk NG tube, 4-point restraints, high flow NC, bed/chair alarm Patient Report: Pt initially agreeable to therapy stating "yes" when asked if she wanted to participate. Patient/Caregiver Goals: None stated Pain: Patient currently without complaints of pain. OBJECTIVE / OCCUPATIONAL PERFORMANCE General Observation: Nursing okay'd therapy but state pt's Precedex was increased this morning and pt was lethargic. Activities of Daily Living: Current Status Previous Status ADLs Feeding Total assistance Independent Grooming Total assistance Supervision Bathing-UE Total assistance Supervision Bathing-LE Total assistance Minimal assistance Dressing-UE Total assistance Supervision Dressing-LE Total assistance Moderate assistance Toileting Total assistance Moderate assistance AM-PAC Daily Activities: Putting On/Taking Off Lower Body Clothing: Total assistance needed Bathing:: Total assistance needed Toileting: Total assistance needed Putting On/Taking Off Upper Body Clothing: Total assistance needed Grooming: Total assistance needed Eating a Meal: Total assistance needed Raw Score = 6 , AM-PAC t-Scale Score = 17.07 and G-Code Modifier = CN Functional Mobility: Bed Mobility: All bed mobility including supine to sit, rolling, [facility] PATIENT NAME: ANDRE BLANCA [facility] Dr. Andrea MEDICAL REC #: [id number] [place] [address] ADMIT DATE: 07/27/20 SERVICE DATE: 08/10/20 Occupational Therapy Progress Note ATTENDING PHY: Marta Horvathoowatson. requiring total assistance. Total A x2 Transfers: Transfers not assessed. Locomotion/Gait/Ambula tion: Not assessed/applicable Interventions: Therapeutic Activities: Pt oriented to self only; required constant and redirection to tasks throughout session to help assist with increased alertness and awareness to task; Pt demod ability to sit EOB with Mod A for 3 minutes with max verbal cueing to maintain position Pain Reassessment: No significant change in pain during session. Education: Education Provided: Precautions. Plan of care. Bed mobility. Safety. Cognitive functioning. Audience: Patient. Mode: Explanation. Demonstration. Response: Needs practice. Needs reinforcement. ASSESSMENT Response to Visit: Pt tolerated OT session poorly this date secondary to increased lethargy secondary to increased Precedex this date. Pt was total A for mobility and is total A for ADLs at this time. Pt intitally was able to minimally speak and agree to therapy session, however, once seated EOB increased alertness did not increase alertness, so pt was positioned back to supine positioned on Left side for pressure relief. Continue to recommend less intense skilled OT following acute stay, Activity/Participation Problem List and Goals: No updates at this time. Progress Toward Goals: TREATMENT GOAL REVIEW: 1. MOD I SELF CARE - Not Met: ongoing New Goal: Min A SELF CARE 2. MOD I FUNCTIONAL TRANSFERS - Not Met ongoing New Goal: Min A FUNCTIONAL TRANSFERS 3. MOD I FUNCTIONAL MOBILITY FOR GETTING AROUND THE HOUSE - Not Met ongoing New Goal: Min A FUNCTIONAL MOBILITY FOR GETTING AROUND THE HOUSE 4. IMPROVED STRENGTH/PULMONARY ENDURANCE TO DO ADL PROJECTED WHILE MAINTAINING O2 SATS ABOVE 92 - Not Met ongoing 5. MOD I MIN CHALLENGE STANDING TASKS STANDING FOR UP TO 10 MIN AT A TIME W/ MINIMAL TO NO C/O DIZZINESS - Not Met ongoing New Goal: Min A MIN CHALLENGE STANDING TASKS STANDING FOR UP TO 5 MIN AT A TIME W/ MINIMAL TO NO C/O DIZZINESS 6. PT/FAMILY WILL BE INSTRUCTED IN D/C RECOMMENDATIONS,HOME SAFETY,ADAPTIVE TECHNIQUES/EQUIPMENT AND DEMO UNDERSTANDING FOR FOLLOW THROUGH - Not Met: ongoing [facility] PATIENT NAME: ANDRE BLANCA [facility] Dr. Andrea MEDICAL REC #: [id number] [place] [address] ADMIT DATE: 07/27/20 SERVICE DATE: 08/10/20 Occupational Therapy Progress Note ATTENDING DAMIAN: Marta Horvath DO Time frame to achieve treatment goal(s): 5x a wk until d/c PLAN Treatment Frequency, Duration and Interventions: Occupational Therapy is recommended for 5X A WK UNTIL D/C Occupational Therapy treatment is to include: ]ADL TRAINING, TRANSFER TRAINING, STANDING BALANCE/ENDURANCE TRAINING, FUNCTIONAL MOBILITY TRAINING, STRENGTHENING,GRADED THERAPEUTIC EXERCISES/ACTIVITIES,P T/FAMILY EDUCATION Recommended Occupational Therapy Follow Up: Upon acute care discharge, the following is currently recommended: Inpatient Occupational Therapy, LESS THAN 60 minutes per day. Equipment Recommended: TBD Recommended Consults: None currently. Development of Plan of Care: Patient participated in plan of care development today. If there are any questions regarding this service, please contact the Acute Therapy Department at extension [phone] Communication to Nursing: No updates at this time. Location of Patient at End of Therapy Session: In bed, bed alarm in place, call light within reach Services: Total Billed: 15 minutes (Timed: 15, Untimed: 0) 15.00 Timed: [19304] THER ACTIVITIES / 15 MIN 0.00 Untimed: [] OT Treatment General ORDER Signed by: KASEY Bryant 08/10/2020 12:29:24 [facility] PATIENT NAME: ANDRE BLANCA [facility] Dr. Andrea MEDICAL REC #: [id number] [place] [address] ADMIT DATE: 07/27/20 SERVICE DATE: 08/10/20 Occupational Therapy Progress Note ATTENDING PHY: Marta Horvath DO Normal [facility] PHOYury 08-10-2020 Phosphate [Mass/Vol] 3.00 mg/dL Normal 2.5-4.9 [facility] Comment on above: Order Comment: Maciel Rubio Result Comment: Elev ated m-protein (paraprotein) levels in the serum may be exhibited in patients with monoclonal gammopathies, causing falsely elevated inorganic phosphorus results. Performed By: #### L 500.07171, L500.72262, L500.54396, L500.61159 ####[facility] [id number] [place], [place] [address]No# [phone] PROG [facility] 08-10-2020 PROG [facility] Patient Name: ANDRE BLANCA [address] Date of : [address] [address] Unit Number: [id number] Progress Note-Hospitalist Patient Status: ADM IN Attending Doctor: Marta Horvath DO Service Date: 08/10/20 1225 Chief Complaint Chief Complaint Syncope Subjective S: (2 ROS minimum) Patient is not thought to be good historian currently ANO x1 to self. Patient denies fever and chills Objective (ROS) Nursing Vitals Vital Signs (Last) Result Date Time Pulse Ox 96 08/10 1100 B/P 107/65 08/10 1100 B/P Mean 79 08/10 1100 O2 Delivery HIGH FLOW NC 08/10 1100 O2 Flow Rate 50 08/10 1100 Pulse 91 08/10 1100 Resp 20 08/10 1100 Temp 99.4 08/10 1000 Physical Exam Physical Examination Notes General: Elderly female, patient is alert and oriented x1 and is in no acute respiratory distress HEENT: Normal cephalic, atraumatic, PERRLA Lungs: Some coarse breath sounds bilaterally, some transmitted upper airway sounds. No wheezing noted Cardiac: Regular rhythm and rate, no murmurs, no rubs. Abdomen: Soft, nontender, nondistended, bowel sounds are active. Extremities: No edema, cyanosis, or clubbing. Skin: No rashes or breakdown. Musculoskeletal: Normal MS exam, moves all extremities Lymphatic: Negative cervical, supra-clavicular, groin lymphadenopathy. Neurologic: Cranial nerves from II-XII intact grossly, no focal deficits. Psychiatry: Some confusion noted Diagnostic Data: Lab 24hr (CBC/BMP Fishbone) 08/10/20 0355: Ionized Calcium 1.08 L 08/10/20 0355: [Embedded Image Not Available] Anion Gap 5, Est GFR ( Amer) Greater than 60, Est GFR (Non-Af Amer) Greater than 60 , BUN/Creatinine Ratio 26 H, Glucose 186 H, Total Calcium 7.7 L, Phosphorus 3.00, Magnesium 2.3, RBC 2.97 L, MCV 94.9, MCHC 31.2 L, RDW 15.6 H, MPV 11.6, Seg Neutrophils % 85.0 H, Lymphocytes % 8.0 L, Monocytes % 1.0 L, Eosinophils % 3.0, Metamyelocytes % 2.0, Myelocytes % 1.0, Neutrophils # 15.90 H, Lymphocytes # 1.50, Monocytes # 0.19, Eosinophils # 0.56 H, Metamyelocytes # 0.37, Myelocytes # 0.19, Nucleated RBCs 0.0, Platelet Estimate ADEQUATE, Polychromasia 1+, Hypochromasia 1+ 08/09/202: Specimen Type ARTERIAL, Sample Site R RADIAL, Patient Temperature 38.4, pH 7.45, pCO2 37.7 , pO2 68 L, HCO3 25.3, Base Excess 1.8, ABG O2 Sat (Measured) 91.7, ABG Oximetry 89, ABG O2 Content 13.3 L, ABG Hemoglobin 10.3, ABG Reduced Hgb 7.7 H, ABG Carboxyhemoglobin 0.3, ABG Methemoglobin 0.3 L, ABG O2 Capacity 14.2, Doug Test POSITIVE, Sodium 151 H, Potassium 3.3 L, Glucose 178 H, Lactate 1.58, Patient Equipment HIGH FLOW CANNULA, Liter Flow 40.00, FiO2 % 45, Ionized Calcium 1.07 L Assessment and Plan Conclusion 1. Pneumonia Pulmonology/critical care has been following. Patient was under treatment for aspiration. Patient has been on Unasyn for antibiotic coverage. White blood cell count remains elevated at 18.7. Chest x-ray today was read as no significant interval change in noted diffuse interstitial and alveolar opacities present bilaterally On Sun 1:21p Aug 09, 2020 DELIA ADAM wrote Some concern that this may be secondary to aspiration. Patient has been on Unasyn. Strep and Legionella antigens were previously checked and were negative. White blood cell count at 19.1 today. Pulmonology/critical care has been following. Chest x-ray today was read as worsening bilateral hazy interstitial pulmonary opacities left greater than right. Patient remains on high flow On Sat 3:42p Aug 08, 2020 DELIA ADAM wrote Some concern this may been secondary to aspiration. Patient continues with Unasyn. White blood cell count on last check was 18.7. Patient was previously checked for strep and Legionella antigens and was negative. Pulmonology has been following. Chest x-ray today was read as worsening appearance of the lungs. Bilateral pulmonary infiltrates were noted. Patient was on high flow 2. Acute respiratory failure with hypoxia Patient enoc on high flow nasal cannula, wean O2 as tolerated. Chest x-ray showing findings concerning for pneumonia for which patient has been receiving treatment with Unasyn. Pulmonary critical care following On Sun :Aug 09, 2020 DELIA ADAM wrote Patient remains on high flow, chest x-ray showing findings concerning for pneumonia On Sat 3:Aug 08, 2020 DELIA ADAM wrote Possibly secondary to recent pneumonia. Chest x-ray showing bilateral pulmonary infiltrates 3. TASHI (acute kidney injury) TASHI thought to be improved, creatinine 0.72 on last check On Sun :Aug 09, 2020 DELIA ADAM wrote TASHI thought to be improved creatinine 0.76 on last check On Sat 3:Aug 08, 2020 DELIA ADAM wrote TASHI thought to be improved. Creatinine was previously as high as 4.24, was 0.76 on check this morning 4. Syncope No current complaints of lightheadedness or dizziness. However patient is a very poor historian as she is only ANO x1. Previously had positive orthostatic vitals. Echo was performed showed an EF of 60 to 65%. Patient was given fluids On Sun :Aug 09, 2020 DELIA ADAM wrote No current complaints of lightheadedness or dizziness a little patient is not thought to be a great historian currently. She previously had previous positive orthostatic vitals. Echo had been performed which showed an EF of 60 to 65% On Sat 3:Aug 08, 2020 DELIA ADAM wrote No current complaints of lightheadedness or dizziness. Patient had positive orthostats noted. Echocardiogram showed an EF of 60 to 65% 5. Hypokalemia Potassium level somewhat better overall currently 3.5. Replace as needed On Sun :Aug 09, 2020 DELIA ADAM wrote Improvement in potassium level overall to 3.8 On Sat 3:Aug 08, 2020 DELIA ADAM wrote Potassium level low at 3.4 today. Patient was ordered IV potassium replaced, check magnesium level in the a.m. 6. Hypernatremia Sodium level slightly worse today at 153. Patient on free water flushes with tube feeds. Will increase free water flushes On Sun 1:21p Aug 09, 2020 DELIA ADAM wrote Sodium level 151 on last check and was increasing. Adding free water with tube feeds Disclaimer This dictation was created using voice recognition software. Phonetic and/or minor grammatical errors may exist. eSign Date and Time Delia Adam MD Verified/Reviewed by 08/10/20 1230 [facility] Progress Note-Hospitalist [facility] PROG.Rocael 08-10-2020 PROG.[facility] Patient Name: ANDRE BLANCA [address] Date of : [address] [place] [address] Unit Number: [id number] Progress Note-Adjuster And Inspector Patient Status: ADM IN Attending Doctor: Marta Horvath DO Service Date: 08/10/20 1012 Progress Note-Adjuster And Inspector Subjective Subjective: Patient states having nausea, shortness of breath. No significant pain. Chart was reviewed Objective Vital Signs: Vital Signs (Last) Result Date Time Temp 99.2 08/10 927 Pulse Ox 91 08/10 900 B/P 133/63 08/10 900 B/P Mean 100 08/10 900 O2 Delivery HIGH FLOW NC 08/10 900 O2 Flow Rate 66 08/10 900 Pulse 97 08/10 09 Resp 19 08/10 09 IandO 24 Hour Summary 08/10 0000 Intake Total 2440 Output Total 941 Balance 1499 Intake, IV 1493 Intake, Oral 0 Intake, Tube 827 Feeding Intake, Tube 120 Irrigant Number 0 Unmeasured Voids Output, Stool 0 Output, Urine 941 Patient 232 lb Weight Exam: General: Somnolent on precedex, able answer questions about self Heart: RRR,nl s1/s2 Lungs: Course BS bilaterally R > L Abdomen: Soft, nt, nd, + BS, obese Extremities: No LE edema Neurologic: Answering questions about self Medications: Medications Current Sig/Antonella Start time Last Medication Dose Route Stop Time Status Admin Acetaminophen 500 MG Q6HPRN PRN 08/04 1930 AC 08/10 (TYLENOL ORAL LIQ) TUBE 0824 Albuterol Sulfate 2.5 MG Q6HPRN PRN 07/28 0030 AC (VENTOLIN/PROVENTIL INH 2.5MG/3ML INH.NEB) Albuterol/Ipratropium 3 ML Q4HRT 08/04 2030 AC 08/10 (DUONEB 0.5-3 MG/3 INH 0747 ML INH.NEB) Albuterol/Ipratropium 3 ML Q2HPRN PRN 07/28 0100 AC (DUONEB 0.5-3 MG/3 INH ML INH.NEB) Ampicillin Sodium/ 3 GM Q12H@18 08/04 1800 AC 08/10 Sulbactam Sodium IV 08/11 1759 0531 (UNASYN VIAL) Sodium Chloride 100 ML (Sodium Chloride 0.9%) Budesonide 0.5 MG BID 08/04 2100 AC 08/10 (PULMOCORT 0.5MG/2ML INH 0747 INH.NEB) Buspirone HCl 20 MG TIDWM 08/05 0800 AC 08/10 (BUSPAR TAB) TUBE 0819 Carbamazepine 200 MG TIDWM 08/05 0800 AC 08/10 (TEGRETOL TAB) TUBE 0822 Clopidogrel Bisulfate 75 MG QDAY 08/05 0900 AC 08/10 (PLAVIX TAB) TUBE 0819 Dexmedetomidine HCl 400 MCG TITRATE(SEE SHAUNA VFS) 08/07 1330 AC 08/10 (PRECEDEX VIAL) IV 0926 Sodium Chloride 96 ML (Sodium Chloride 0.9%) Enoxaparin Sodium 40 MG QDAY 07/28 0900 AC 08/10 (LOVENOX D.SYR) SC 0819 Esomeprazole 40 MG BIDAC 08/05 0700 AC 08/10 Magnesium TUBE 0522 (NEXIUM CAP (TXI)) Fluoxetine HCl 20 MG QDAY 08/05 0900 AC 08/10 (PROZAC CAP) TUBE 0819 Haloperidol Lactate 2 MG Q4HPRN PRN 08/07 0900 AC 08/09 (HALDOL AMP) IV 1730 Heparin Sodium See Dose Q24H 08/06 0900 AC 08/06 (Porcine) Insts (1) IV 0807 (HEP-LOCK *10*UNITS/ ML IV D.SYR.PF) Heparin Sodium See Dose PRN PRN 08/05 1500 AC (Porcine) Insts (2) IV (HEP-LOCK *10*UNITS/ ML IV D.SYR.PF) Levothyroxine Sodium 0.125 MG QDAYAC 08/09 0700 AC 08/10 (SYNTHROID TAB) PO 0522 Loperamide HCl 2 MG PRN PRN 08/04 193 AC (IMODIUM AD ORAL TUBE LIQUID UDC) Melatonin 10 MG QHS 08/09 2200 AC 08/09 (MELATONIN TAB) TUBE 2259 Menthol/Methyl 1 APPL BIDPRN PRN 07/28 0030 AC 07/29 Salicylate TP 2217 (MIHIR ALVAREZ T.CREAM) Ondansetron HCl 4 MG BIDPRN PRN 08/04 193 AC (ZOFRAN TAB) TUBE Ondansetron HCl 4 MG Q6HPRN PRN 07/27 2100 AC 08/04 (ZOFRAN VIAL) IV 212 Pravastatin Sodium 40 MG QHS 08/04 2200 AC 08/09 (PRAVACHOL TAB) TUBE 2141 Pregabalin 150 MG BID 08/04 2100 AC 08/10 (LYRICA CAP) TUBE 0929 Quetiapine Fumarate 100 MG QHS 08/08 2200 AC 08/09 (SEROQUEL TAB) TUBE 2141 Risperidone 3 MG BID 08/09 2100 AC 08/10 (RISPERDAL TAB) TUBE 0824 Sodium Chloride See Dose Q24H 08/06 0900 AC 08/10 (Sodium Chloride Insts (3) IV 0825 0.9% FLUSH D.SYR) Sodium Chloride See Dose PRN PRN 08/05 1500 AC (Sodium Chloride Insts (4) IV 0.9% FLUSH D.SYR) Dose Instructions: (1)Heparin Sodium (Porcine) (HEP-LOCK *10*UNITS/ML IV D.SYR.PF): 50-200 UNITS (2)Heparin Sodium (Porcine) (HEP-LOCK *10*UNITS/ML IV D.SYR.PF): 50-200 UNITS (3)Sodium Chloride (Sodium Chloride 0.9% FLUSH D.SYR): 10-40 ML (4)Sodium Chloride (Sodium Chloride 0.9% FLUSH D.SYR): 10-40 ML Radiology Impressions: Recent Impressions (48H) RADIOLOGY - PORTABLE CHEST 12/27 0436 Report Impression - Status: SIGNED Entered: 08/09/2020 0721 IMPRESSION: Worsening bilateral hazy interstitial pulmonary opacities left greater than right Impression By: CIRO HOUSTON M.D. COMPUTERIZED TOMOGRAPHY - CT HEAD/BRAIN W/O CON 08/09 2215 Report Impression - Status: SIGNED Entered: 08/10/2020 0752 IMPRESSION: Atrophy and remote ischemic change. No acute abnormalities. Impression By: JASON PATIÑO M.D. RADIOLOGY - PORTABLE CHEST 08/10 0430 Report Impression - Status: SIGNED Entered: 08/10/2020 0714 IMPRESSION: No significant interval change. Impression By: SILVIO BURKETT M.D. ABG: ABG-Last Test Result Date Time Blood Gas Specimen Type ARTERIAL 08/09 1812 Sample Site R RADIAL 08/09 1812 Patient Temperature (C) 38.4 08/09 1812 pH (7.35 - 7.45) 7.45 08/09 1812 pCO2 (35 - 45 MMHG) 37.7 08/09 1812 pO2 (80 - 100 MMHG) 68 L 08/09 1812 HCO3 (22 - 26 MMOL/L) 25.3 08/09 1812 Base Excess (-2.0 - 2.0 MML/L) 1.8 08/09 1812 ABG O2 Sat (Measured) (90 - 100 %) 91.7 08/09 1812 ABG Oximetry (%) 89 08/09 1812 ABG O2 Content (15.7 - 21.6 mL/dL) 13.3 L 08/09 181 ABG Hemoglobin (10 - 16 GM/DL) 10.3 08/09 1812 ABG Reduced Hgb (0 - 5 %) 7.7 H 08/09 1812 ABG Carboxyhemoglobin (0 - 10 %) 0.3 08/09 1812 ABG Methemoglobin (0.4 - 1.5 %) 0.3 L 08/09 1812 ABG O2 Capacity (mL/dL) 14.2 08/09 1812 Doug Test POSITIVE 08/09 1812 Sodium (136 - 148 mmol/L) 151 H 08/09 1812 Potassium (3.5 - 5.0 MMOL/L) 3.3 L 08/09 1812 Glucose (60 - 80 MG/DL) 178 H 08/09 1812 Lactate (0.40 - 2.00 MMOL/L) 1.58 08/09 1812 Patient Equipment HIGH FLOW CANNULA 08/09 1812 Liter Flow (L/M) 40.00 08/09 1812 FiO2 % (%) 45 08/09 1812 Lab Results: Lab 24hr (CBC/BMP Fishbone) 08/10/20354: Ionized Calcium 1.08 L 08/10/20354: [Embedded Image Not Available] Anion Gap 5, Est GFR ( Amer) Greater than 60, Est GFR (Non-Af Amer) Greater than 60 , BUN/Creatinine Ratio 26 H, Glucose 186 H, Total Calcium 7.7 L, Phosphorus 3.00, Magnesium 2.3, RBC 2.97 L, MCV 94.9, MCHC 31.2 L, RDW 15.6 H, MPV 11.6, Seg Neutrophils % 85.0 H, Lymphocytes % 8.0 L, Monocytes % 1.0 L, Eosinophils % 3.0, Metamyelocytes % 2.0, Myelocytes % 1.0, Neutrophils # 15.90 H, Lymphocytes # 1.50, Monocytes # 0.19, Eosinophils # 0.56 H, Metamyelocytes # 0.37, Myelocytes # 0.19, Nucleated RBCs 0.0, Platelet Estimate ADEQUATE, Polychromasia 1+, Hypochromasia 1+ 08/09/201811: Specimen Type ARTERIAL, Sample Site R RADIAL, Patient Temperature 38.4, pH 7.45, pCO2 37.7 , pO2 68 L, HCO3 25.3, Base Excess 1.8, ABG O2 Sat (Measured) 91.7, ABG Oximetry 89, ABG O2 Content 13.3 L, ABG Hemoglobin 10.3, ABG Reduced Hgb 7.7 H, ABG Carboxyhemoglobin 0.3, ABG Methemoglobin 0.3 L, ABG O2 Capacity 14.2, Doug Test POSITIVE, Sodium 151 H, Potassium 3.3 L, Glucose 178 H, Lactate 1.58, Patient Equipment HIGH FLOW CANNULA, Liter Flow 40.00, FiO2 % 45, Ionized Calcium 1.07 L Assessment/Plan Assessment/Problem List: 1. Acute hypoxemic respiratory failure 70 y/o with PMHx of COPD, HFpEF, CVA, and Former Tobacco Abuse presented to [facility] emergency department on 07/27 secondary to Syncope and was admitted to telemetry. Our service was consulted on 08/04 secondary to Worsening Hypoxemia requiring HFNC. She is being transferred to the D-ICU. ASSESSMENT: - LLL Aspiration Pneumonia - Acute Hypoxemic Respiratory Failure 2/2 above - Nausea and Vomitting - Encephalopathy - TASHI 2/2 Dehydration - HFpEF (EF 60-65% per Echo 07/2020) - Tobacco Abuse, in Remission - Obesity - Hx of COPD (no PFTs on file) - Hx of CVA -History of multiple falls -History of psychiatric illness PLAN: * Currently oxygenating adequately on 50L/65% FiO2 via HFNC. Continue to wean with goal > SpO2 88% * CXR 08/09 shows worsening bilateral airspace disease. * judicious precedex gtt, wean as tolerated. Patient with long history of psychiatric illness. * No documented fevers. Mild leukocytosis. Urine Ag/SARS-CoV-2 negative. * c/w IV Unasyn (Day #7) for aspiration pneumonia * Abdominal X-ray ==> neg for ileus/obstruction, NG tube in for feeds. * c/w TFs , add free water *(hypernatremia) * Continue scheduled and PRN Duonebs. Add Budesonide. Resume home Symbicort upon discharge. * Continue Incentive Spirometry. 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 Patient spent time at the [facility] according to son, that is the facility that she met her . * History of multiple falls in the past. * F/E/N: HL fluids/replete lytes as needed /c/w TFs * GI/DVT Prophylaxis: PO Pantoprazole/Lovenox * CODE STATUS: DNR Comfort Care arrest, discussed with son Giana Blanca, area code [phone]. Did also discuss if patient is functionally declining, consider changing CODE STATUS to comfort only. Patient is requiring higher oxygen than yesterday. Will watch carefully with full medical therapy. Please see orders. Total critical care time 35 minutes Disclaimer This dictation was created using voice recognition software. Phonetic and/or minor grammatical errors may exist. eSign Date and Time Jayesh Loera MD Verified/Reviewed by 08/10/20 1017 [facility] Progress Note-Adjuster And Inspector [facility] PTPNon 08-10-2020 PT Progress Note Normal [facility] PTPN Physical Therapy Inpatient Treatment Note Medical Diagnosis: 1. Acute hypoxemic respiratory failure 2. Syncope 3. Hypothyroidism multiple rib fxs Demographics: Age: 70Y Gender: Female Primary Language: Estonian Preferred Language: Estonian Rehabilitation Precautions/Restrictio ns: NG tube, 4-point restraints, high flow NC, SUBJECTIVE Patient Report: initially agreeable to therapy Patient/Caregiver Goals: None stated Pain: Patient currently without complaints of pain. OBJECTIVE General Observation: Pt in bed,. pt on high flow O2 now. Pt drowsy d/t increased Precedex this a.m. ; able to state no pain, agreeable to therapy Functional Activities After Today's Session: Bed Mobility: sup<>sit Total A, sitting EOB with Mod A Transfers: Transfers not assessed. ; d/t drowsiness Locomotion/Ambulation: Not assessed/applicable Stairs: Not assessed. Curb Negotiation: Not assessed. AM-PAC Basic Mobility: Turning Over in Bed: A lot of difficulty Sitting/Standing Chair with Arms: A lot of difficulty Lying on Back to Sitting on Side of Bed: A lot of difficulty Moving To/From Bed to Chair: Total assistance needed Walking in Hospital Room: Total assistance needed Climbing 3-5 Steps with Railing: Total assistance needed Raw Score = 9 , AM-PAC t-Scale Score = 30.55 and G-Code Modifier = CM Vital Signs: Vitals: Oxygen Saturation: 95 % Heart Rate: 90 bpm Respiratory Rate: [address] [facility] PATIENT NAME: ANDRE BLANCA [facility] [address] MEDICAL REC #: [id number] [place] [address] ADMIT DATE: 07/27/20 SERVICE DATE: 08/10/20 Physical Therapy Progress Note ATTENDING PHY: Marta Horvath DO Interventions: Therapeutic Activities: sup<>sit with Total A, max v/c for sequencing/alertness; Sitting EOB x 3 mins with Mod A; max v/c for attention to task, posture Pain Reassessment: No pain at onset or during treatment, which does not warrant reassessment. Education: Education Provided: Bed mobility. Plan of care. Audience: Patient. Mode: Explanation. Demonstration. Response: Verbalized understanding. Needs reinforcement. ASSESSMENT Response to Visit: Pt. tolerated tx poorly this date d/t sedation meds. Pt. initially able to converse with therapists, but unable to follow directions for participation and no improved alertness with sitting EOB. Pt. repositioned in bed for comfort and pressure relief at end of session. 4 point restraints reapplied. Continue to recommend <60 mins therapy/day Activity/Participation Problem List and Goals: No updates at this time. Progress Toward Goals: TREATMENT GOAL REVIEW: 1. Pt transfer MOD I - Not Met: ongoing 2. Pt ambulate at least 50 feet WW MOD I - Not Met ongoing 3. Demo independence with LE thex for endurance and strengthening - Not Met ongoing Time frame to achieve treatment goal(s): 2 weeks PLAN Treatment Frequency, Duration and Interventions: Continue Physical Therapy to achieve goals per previously established Plan of Care. gait, transfes, endurance, balance, safety Recommended Physical Therapy Follow Up: Upon acute care discharge, the following is currently recommended: Inpatient Physical Therapy, LESS THAN 60 minutes per day. Recommended Equipment: Rolling walker. Recommended Consults: Development of Plan of Care: There was no change to plan of care today. If there are any questions regarding this service, please contact the Acute Therapy Department at extension [phone] [facility] PATIENT NAME: ANDRE BLANCA [address] MEDICAL REC #: [id number] [place] [address] ADMIT DATE: 07/27/20 SERVICE DATE: 08/10/20 Physical Therapy Progress Note ATTENDING PHY: Marta Horvath DO Location of Patient at End of Therapy Session: In bed, bed alarm in place, call light within reach Services: Total Billed: 15 minutes (Timed: 15, Untimed: 0) 15.00 Timed: [55979] THER ACTIVITIES / 15 MIN 0.00 Untimed: [] PT Treatment- General ORDER Signed by: Ioana Holden, 08/10/2020 11:40:28 [facility] PAT[facility] REC #: [id number] [place] [address] ADMIT DATE: 07/27/20 SERVICE DATE: 08/10/20 Physical Therapy Progress Note ATTENDING PHY: Marta Horvath DO Normal [facility] ABGPEGLAon 08-09-2020 ABG BE 1.8 MML/L Normal -2.0-2.0 [facility] Comment on above: Order Comment: Maciel Rubio Minimal Draw: Y Performed By: #### L 500.95279, L500.22862 #### [facility] [address] [place] [address] ABG COHBA 0.3 % Normal 0-10 [facility] Comment on above: Order Comment: Maciel Rubio Minimal Draw: Y Performed By: #### L 500.55758, L500.15518 #### [facility] [address] [place] [address] ABG GLU 178 MG/DL High 60-80 [facility] Comment on above: Order Comment: Abundiou s: M Minimal Draw: Y Performed By: #### L 500.61768, L500.50977 #### [facility] [address] [place] [address] ABG HCO3 25.3 MMOL/L Normal 22-26 [facility] Comment on above: Order Comment: Abundiou s: M Minimal Draw: Y Performed By: #### L 500.76128, L500.56037 #### [facility] [place] [id number] ABG MET 0.3 % Low 0.4-1.5 [facility] Comment on above: Order Comment: Abundiou s: M Minimal Draw: Y Performed By: #### L 500.76150, L500.95593 #### [facility] [address] [place] [address] ABG O2 CAPACITY 14.2 mL/dL Normal [facility] Comment on above: Order Comment: Abundiou s: M Minimal Draw: Y Performed By: #### L 500.65416, L500.77190 #### [facility] [address] [place] [address] ABG O2 CONTENT 13.3 mL/dL Low 15.7-21.6 [facility] Comment on above: Order Comment: Abundiou s: M Minimal Draw: Y Performed By: #### L 500.81425, L500.11078 #### [facility] [place] [address] ABG O2HB SAT 91.7 % Normal 90-100 [facility] Comment on above: Order Comment: Abundiou s: M Minimal Draw: Y Performed By: #### L 500.32675, L500.89047 #### [facility] [place] [address] ABG PCO2 37.7 MMHG Normal 35-45 [facility] Comment on above: Order Comment: Campu s: M Minimal Draw: Y Performed By: #### L 500.43402, L500.42828 #### [facility] [address] [place] [address] ABG PH 7.45 Normal 7.35-7.45 [facility] Comment on above: Order Comment: Campu s: M Minimal Draw: Y Performed By: #### L 500.33896, L500.83631 #### [facility] [address] [place], [place] [id number] ABG PO2 68 MMHG Low 80-100 [facility] Comment on above: Order Comment: Campu s: M Minimal Draw: Y Performed By: #### L 500.38841, L500.99581 #### [facility] [address] [place] [address] DOUG TEST Positive Normal [facility] Comment on above: Order Comment: Campu s: M Minimal Draw: Y Performed By: #### L 500.82313, L500.91173 #### [facility] [address] [place] [address] aPTT Coag (Bld) [Time] 38.4 C Normal [facility] Comment on above: Order Comment: Campu s: M Minimal Draw: Y Performed By: #### L 500.27189, L500.52189 #### [facility] [address] [place], [place] [address] EQUIPMENT HIGH FLOW CANNULA Normal [facility] Comment on above: Order Comment: Campu s: M Minimal Draw: Y Performed By: #### L 500.28756, L500.58827 #### [facility] [address] [place], [place] [address] FIO2 45 % Normal [facility] Comment on above: Order Comment: Campu s: M Minimal Draw: Y Performed By: #### L 500.67684, L500.15246 #### [facility] [address] [place] [address] Hemoglobin (Bld) [Mass/Vol] 7.7 % High 0-5 [facility] Comment on above: Order Comment: Abundiou s: M Minimal Draw: Y Performed By: #### L 500.40671, L500.94152 #### [facility] [address] [place], [place] [address] Hemoglobin (Bld) [Mass/Vol] 10.3 g/dL Normal 10-16 [facility] Comment on above: Order Comment: Abundiou s: M Minimal Draw: Y Performed By: #### L 500.26183, L500.00448 #### [facility] [address] [place] [address] IONIZED CA 1.07 MMOL/L Low 1.13-1.32 [facility] Comment on above: Order Comment: Abundiou s: M Minimal Draw: Y Performed By: #### L 500.67357, L500.89816 #### [facility] [address] [place] [address] LACTATE BLOOD 1.58 MMOL/L Normal 0.40-2.00 [facility] Comment on above: Order Comment: Abundiou s: M Minimal Draw: Y Performed By: #### L 500.98040, L500.93346 #### [facility] [address] [place], [place] [address] LITERFLOW 40.00 L/M Normal [facility] Comment on above: Order Comment: Abundiou s: M Minimal Draw: Y Performed By: #### L 500.96261, L500.20480 #### [facility] [address] [place] [address] Oxygen saturation in Blood 89 % Normal [facility] Comment on above: Order Comment: Abundiou s: M Minimal Draw: Y Performed By: #### L 500.77762, L500.41633 #### [facility] [address] [place] [address] Potassium [Moles/Vol] 3.3 mmol/L Low 3.5-5.0 [facility] Comment on above: Order Comment: Campu s: M Minimal Draw: Y Performed By: #### L 500.08654, L500.97388 #### [facility] [address] [place] [address] SAMPLE SITE R RADIAL Normal [facility] Comment on above: Order Comment: Campu s: M Minimal Draw: Y Performed By: #### L 500.45867, L500.77057 #### [facility] [address] [place] [address] SAMPLE TYPE ARTERIAL Normal [facility] Comment on above: Order Comment: Campu s: M Minimal Draw: Y Performed By: #### L 500.60046, L500.60680 #### [facility] [address] [place] [address] Sodium [Moles/Vol] 151 mmol/L High 136-148 [facility] Comment on above: Order Comment: Campu s: M Minimal Draw: Y Performed By: #### L 500.85603, L500.58719 #### [facility] [address] [place] [address] BMPon 08-09-2020 Anion gap [Moles/Vol] 8 mmol/L Normal 5-16 [facility] Comment on above: Order Comment: Campu s: M Performed By: #### L 500.93897, L500.70841, L500.02297, L500.76511 ####[facility] [id number] [place], [place] [address]Ab# [phone] Calcium [Mass/Vol] 8.1 mg/dL Low 8.5-10.5 [facility] Comment on above: Order Comment: Campu s: M Result Comment: NOTE NEW NORMAL RANGE DUE TO REAGENT CHANGE Performed By: #### L 500.49593, L500.47061, L500.17265, L500.48183 ####[facility] [id number] [place], [place] [address]Xt# [phone] Chloride [Moles/Vol] 116 mmol/L High 98-107 [facility] Comment on above: Order Comment: Campu s: M Performed By: #### L 500.88631, L500.64880, L500.78016, L500.75081 ####[facility] [id number] [place], [place] [address]Te# [phone] CO2 [Moles/Vol] 27.0 mmol/L Normal 21-32 [facility] Comment on above: Order Comment: Campu s: M Performed By: #### L 500.43471, L500.66755, L500.84499, L500.65488 ####[facility] [id number] [place], [place] [address]Wn# [phone] Creatinine [Mass/Vol] 0.76 mg/dL Normal 0.510-0.950 [facility] Comment on above: Order Comment: Campu s: M Result Comment: Geraldine ents receiving either N-Acetylcysteine (NAC) or Metamizole prior to venipuncture, may have falsely depressed results. Performed By: #### L 500.53960, L500.62046, L500.24932, L500.18690 ####[facility] [id number] [place], [place] [address]Yi# [phone] Glucose [Mass/Vol] 150 mg/dL High 70-100 [facility] Comment on above: Order Comment: Campu s: M Result Comment: 70-1 00- Normal Fasting; 100-125 Impaired Fasting; greater than 126 on more than one result- Diabetes. ADA guidelines. Results may be falsely elevated after the administration of Sulfapyridine. Results may be falsely depressed after the administration of Sulfasalazine. Performed By: #### L 500.05095, L500.45393, L500.13763, L500.97795 ####[facility] [id number] [place], [place] [address]Tu# [phone] Potassium [Moles/Vol] 3.8 mmol/L Normal 3.5-5.1 [facility] Comment on above: Order Comment: Campu s: M Performed By: #### L 500.11943, L500.24741, L500.09229, L500.39691 ####[facility] [id number] [place], [place] [address]Pv# [phone] Sodium [Moles/Vol] 151 mmol/L High 136-145 [facility] Comment on above: Order Comment: Campu s: M Performed By: #### L 500.36430, L500.90764, L500.70143, L500.71028 ####[facility] [id number] [place], [place] [address]Pu# [phone] Urea nitrogen [Mass/Vol] 21 mg/dL Normal 7-26 [facility] Comment on above: Order Comment: Campu s: M Performed By: #### L 500.95149, L500.36816, L500.71194, L500.72846 ####[facility] [id number] [place], [place] [address]Cw# [phone] Urea nitrogen/Creatinine [Mass ratio] 27 mg/mg High 15-24 [facility] Comment on above: Order Comment: Campu s: M Performed By: #### L 500.51293, L500.57284, L500.87369, L500.27273 ####[facility] [id number] [place], [place] [address]Zh# [phone] CBC W/DIFFon 08-09-2020 BAND ABS 2.87 K/CU MM Normal [facility] Comment on above: Order Comment: Campu s: M What is the source? URINE Performed By: #### M 150.60375, M150.28922 #### [facility] [address] [place] [address] Band form neutrophils/100 WBC (Bld) 15.0 % High 0-7 [facility] Comment on above: Order Comment: Campu s: M What is the source? URINE Performed By: #### M 150.94680, M150.60779 #### [facility] [address] [place] [address] BASO ABS 0.19 K/CU MM Normal 0-0.2 [facility] Comment on above: Order Comment: Campu s: M What is the source? URINE Performed By: #### M 150.06657, M150.35337 #### [facility] [place] [id number] Basophils/100 WBC (Bld) 1.0 % Normal 0-2 M [facility] Comment on above: Order Comment: Campu s: M What is the source? URINE Performed By: #### M 150.36672, M150.27207 #### [facility] [address] [place], [place] [address] EOS ABS 0.38 K/CU MM Normal 0-0.5 [facility] Comment on above: Order Comment: Campu s: M What is the source? URINE Performed By: #### M 150.82043, M150.46491 #### [facility] [place] [address] Eosinophils/100 WBC (Bld) 2.0 % Normal 0-5 [facility] Comment on above: Order Comment: Campu s: M What is the source? URINE Performed By: #### M 150.91509, M150.55501 #### [facility] [place] [address] HYPO 1+ Normal [facility] Comment on above: Order Comment: Campu s: M What is the source? URINE Performed By: #### M 150.84877, M150.59592 #### [facility] [address] [place] [address] Lymphocytes (Bld) [#/Vol] 0.57 K/CU MM Low 0.9-4.4 [facility] Comment on above: Order Comment: Campu s: M What is the source? URINE Performed By: #### M 150.12835, M150.62984 #### [facility] [place] [id number] Lymphocytes/100 WBC (Bld) 3.0 % Low 20-40 [facility] Comment on above: Order Comment: Campu s: M What is the source? URINE Performed By: #### M 150.27599, M150.78498 #### [facility] [address] [place] [address] META % 1.0 % Normal [facility] Comment on above: Order Comment: Campu s: M What is the source? URINE Performed By: #### M 150.77751, M150.47321 #### [facility] [address] [place] [address] META ABS 0.19 K/CU MM Normal [facility] Comment on above: Order Comment: Campu s: M What is the source? URINE Performed By: #### M 150.04973, M150.53092 #### [facility] [place] [address] MONO ABS 2.48 K/CU MM High 0.1-1.1 [facility] Comment on above: Order Comment: Campu s: M What is the source? URINE Performed By: #### M 150.34887, M150.62194 #### [facility] [place] [address] Monocytes/100 WBC (Bld) 13.0 % High 2-10 M [facility] Comment on above: Order Comment: Campu s: M What is the source? URINE Performed By: #### M 150.29354, M150.16122 #### [facility] [address] [place] [address] MYELO ABS 0.19 K/CU MM Normal [facility] Comment on above: Order Comment: Campu s: M What is the source? URINE Performed By: #### M 150.39532, M150.03899 #### [facility] [address] [place] [address] MYELOCYTE % 1.0 % Normal [facility] Comment on above: Order Comment: Campu s: M What is the source? URINE Performed By: #### M 150.07566, M150.66583 #### [facility] [address] [place] [address] NEUTROPHIL ABS 12.22 K/CU MM High 2.0-8.3 [facility] Comment on above: Order Comment: Campu s: M What is the source? URINE Performed By: #### M 150.89041, M150.77231 #### [facility] [address] [place] [address] Neutrophils/100 WBC (Bld) 64.0 % Normal 45-75 [facility] Comment on above: Order Comment: Campu s: M What is the source? URINE Performed By: #### M 150.89702, M150.16732 #### [facility] [address] [place], [place] [address] Platelets (Bld) [#/Vol] ADEQUATE Normal [facility] Comment on above: Order Comment: Campu s: M What is the source? URINE Performed By: #### M 150.19305, M150.70368 #### [facility] [address] [place] [address] POLY 1+ Normal [facility] Comment on above: Order Comment: Campu s: M What is the source? URINE Performed By: #### M 150.78402, M150.20911 #### [facility] [address] [place] [address] Erythrocyte distribution width (RBC) [Ratio] 15.3 % High 11-14.5 [facility] Comment on above: Order Comment: Campu s: M What is the source? URINE Performed By: #### M 150.51481, M150.41672 #### [facility] [address] [place] [address] Hematocrit (Bld) [Volume fraction] 27.9 % Low 35.0-47.0 [facility] Comment on above: Order Comment: Abundiou s: M What is the source? URINE Performed By: #### M 150.98740, M150.53850 #### [facility] [place] [address] Hemoglobin (Bld) [Mass/Vol] 8.8 g/dL Low 11.5-15.5 [facility] Comment on above: Order Comment: Campu s: M What is the source? URINE Performed By: #### M 150.17801, M150.41203 #### [facility] [place] [address] MCHC (RBC) [Mass/Vol] 31.5 g/dL Low 32.0-36.0 [facility] Comment on above: Order Comment: Campu s: M What is the source? URINE Performed By: #### M 150.30753, M150.58433 #### [facility] [address] [place] [address] MCV (RBC) [Entitic vol] 93.6 fL Normal 80.0-99.0 [facility] Comment on above: Order Comment: Abundiou s: M What is the source? URINE Performed By: #### M 150.51557, M150.03713 #### [facility] [address] [place] [address] Nucleated RBC/100 WBC (Bld) [Ratio] 0.0 % Normal Less than 1 [facility] Comment on above: Order Comment: Campu s: M What is the source? URINE Performed By: #### M 150.15083, M150.59900 #### [facility] [place], [place] [address] Platelet mean volume (Bld) [Entitic vol] 11.6 fL Normal 9.4-12.4 [facility] Comment on above: Order Comment: Campu s: M What is the source? URINE Performed By: #### M 150.08471, M150.83201 #### [facility] [address] [place] [address] 18286 Platelets (Bld) [#/Vol] 189 K/CU MM Normal 150-450 [facility] Comment on above: Order Comment: Campu s: M What is the source? URINE Performed By: #### M 150.43403, M150.89348 #### [facility] [address] [place] [address]64 RBC (Bld) [#/Vol] 2.98 M/CU MM Low 3.90-5.30 [facility] Comment on above: Order Comment: Campu s: M What is the source? URINE Performed By: #### M 150.05255, M150.23844 #### [facility] [address] [place] [address] 44236 WBC (Bld) [#/Vol] 19.1 K/CUMM High 4.5-11.0 [facility] Comment on above: Order Comment: Campu s: M What is the source? URINE Performed By: #### M 150.01271, M150.48513 #### [facility] [address] [place] [address] 10091 GFR ESTon 08-09-2020 IF AMER Greater than 60 Normal [facility] Comment on above: Order Comment: Campu s: M Performed By: #### L 500.93338, L500.41953, L500.24325, L500.71341 ####[facility] [id number] [place], [place] [address]Vr# [phone] IF non-AFR AMER Greater than 60 Normal [facility] Comment on above: Order Comment: Campu s: M Performed By: #### L 500.40280, L500.11584, L500.68210, L500.19660 ####[facility] [id number] [place] [address]Vv# [phone] IONIZED CAon 08-09-2020 IONIZED CA 1.12 MMOL/L Low 1.16-1.32 [facility] Comment on above: Order Comment: Campu s: M Performed By: #### L 550.40277 ####[address] [address]Ot# [phone] MAGNESIUMon 08-09-2020 Magnesium [Mass/Vol] 1.6 MG/CL Normal 1.6-2.6 [facility] Comment on above: Order Comment: Campu s: M Performed By: #### L 500.97082, L500.49623, L500.06000, L500.27331 ####[facility] [id number] [place] [address]Tn# [phone] PHOSon 08-09-2020 Phosphate [Mass/Vol] 1.70 mg/dL Low 2.5-4.9 [facility] Comment on above: Order Comment: Campu s: M Result Comment: Elev ated m-protein (paraprotein) levels in the serum may be exhibited in patients with monoclonal gammopathies, causing falsely elevated inorganic phosphorus results. Performed By: #### L 500.61724, L500.81930, L500.44261, L500.70019 ####[facility] [id number] [place], [place] [address]Nx# [phone] PROG IMSon 08-09-2020 PROG [facility] Patient Name: ANDRE BLANCA [address] [facility] Date of : [address] [id number] Unit Number: [id number] Progress Note-Hospitalist Patient Status: ADM IN Attending Doctor: Marta Horvath DO Service Date: 08/09/20 1308 Chief Complaint Chief Complaint Syncope Subjective S: (2 ROS minimum) Patient is currently a poor historian. ANO x1 to self. Patient denies fever and chills Objective (ROS) Nursing Vitals Vital Signs (Last) Result Date Time Pulse Ox 90 08/09 1200 B/P 144/90 08/09 1200 B/P Mean 111 08/09 1200 O2 Delivery HIGH FLOW NC 08/09 1200 O2 Flow Rate 45% 08/09 1200 Temp 100.4 08/09 1200 Pulse 115 08/09 1200 Resp 26 08/09 1200 Physical Exam Physical Examination Notes General: Elderly female, patient is alert and oriented x1 and is in no acute respiratory distress HEENT: Normal cephalic, atraumatic, PERRLA Lungs: Some coarse breath sounds bilaterally, some transmitted upper airway sounds. No wheezing noted Cardiac: Regular rhythm and rate, no murmurs, no rubs. Abdomen: Soft, nontender, nondistended, bowel sounds are active. Extremities: No edema, cyanosis, or clubbing. Skin: No rashes or breakdown. Musculoskeletal: Normal MS exam, moves all extremities Lymphatic: Negative cervical, supra-clavicular, groin lymphadenopathy. Neurologic: Cranial nerves from II-XII intact grossly, no focal deficits. Psychiatry: Some confusion noted Diagnostic Data: Lab 24hr (CBC/BMP [facility]) 08/09/20 0445: Ionized Calcium 1.12 L 08/09/20 0445: [Embedded Image Not Available] Anion Gap 8, Est GFR ( Amer) Greater than 60, Est GFR (Non-Af Amer) Greater than 60 , BUN/Creatinine Ratio 27 H, Glucose 150 H, Total Calcium 8.1 L, Phosphorus 1.70 L, Magnesium 1.6, RBC 2.98 L, MCV 93.6, MCHC 31.5 L, RDW 15.3 H, MPV 11.6, Seg Neutrophils % 64.0, Band Neutrophils % 15.0 H, Lymphocytes % 3.0 L, Monocytes % 13.0 H, Eosinophils % 2.0, Basophils % 1.0, Metamyelocytes % 1.0, Myelocytes % 1.0, Neutrophils # 12.22 H, Band Neutrophils # 2.87, Lymphocytes # 0.57 L, Monocytes # 2.48 H, Eosinophils # 0.38, Basophils # 0.19, Metamyelocytes # 0.19, Myelocytes # 0.19, Nucleated RBCs 0.0, Platelet Estimate ADEQUATE, Polychromasia 1+, Hypochromasia 1+ Assessment and Plan Conclusion 1. Pneumonia Some concern that this may be secondary to aspiration. Patient has been on Unasyn. Strep and Legionella antigens were previously checked and were negative. White blood cell count at 19.1 today. Pulmonology/critical care has been following. Chest x-ray today was read as worsening bilateral hazy interstitial pulmonary opacities left greater than right. Patient remains on high flow On Sat 3:42p Aug 08, 2020 DELIA ADAM wrote Some concern this may been secondary to aspiration. Patient continues with Unasyn. White blood cell count on last check was 18.7. Patient was previously checked for strep and Legionella antigens and was negative. Pulmonology has been following. Chest x-ray today was read as worsening appearance of the lungs. Bilateral pulmonary infiltrates were noted. Patient was on high flow 2. Acute respiratory failure with hypoxia Patient remains on high flow, chest x-ray showing findings concerning for pneumonia On Sat 3:42p Aug 08, 2020 DELIA ADAM wrote Possibly secondary to recent pneumonia. Chest x-ray showing bilateral pulmonary infiltrates 3. TASHI (acute kidney injury) TASHI thought to be improved creatinine 0.76 on last check On Sat 3:42p Aug 08, 2020 DELIA ADAM wrote TASHI thought to be improved. Creatinine was previously as high as 4.24, was 0.76 on check this morning 4. Syncope No current complaints of lightheadedness or dizziness a little patient is not thought to be a great historian currently. She previously had previous positive orthostatic vitals. Echo had been performed which showed an EF of 60 to 65% On Sat 3:42p Aug 08, 2020 DELIA ADAM wrote No current complaints of lightheadedness or dizziness. Patient had positive orthostats noted. Echocardiogram showed an EF of 60 to 65% 5. Hypokalemia Improvement in potassium level overall to 3.8 On Sat 3:42p Aug 08, 2020 DELIA ADAM wrote Potassium level low at 3.4 today. Patient was ordered IV potassium replaced, check magnesium level in the a.m. 6. Hypernatremia Sodium level 151 on last check and was increasing. Adding free water with tube feeds Disclaimer This dictation was created using voice recognition software. Phonetic and/or minor grammatical errors may exist. eSign Date and Time Delia Adam MD Verified/Reviewed by 08/09/20 1321 [facility] Progress Note-Hospitalist [facility] PROG.Rocael 08-09-2020 PROG.[facility] Patient Name: ANDRE BLANCA [address] [employer] [address] Date of : [address] [place] [address] Unit Number: [id number] Progress Note-Adjuster And Inspector Patient Status: ADM IN Attending Doctor: Marta Horvath DO Service Date: 08/09/20 1042 Progress Note-Adjuster And Inspector Subjective Subjective: still confused , breathing appears better, but still on high flow O2 Objective Vital Signs: Vital Signs (Last) Result Date Time Pulse Ox 93 08/09 0600 B/P 121/56 08/09 0600 B/P Mean 80 08/09 0600 O2 Delivery HIGH FLOW NC 08/09 0600 O2 Flow Rate 50L60% 08/09 06 Pulse 89 08/09 0600 Resp 19 08/09 0600 Temp 100.6 08/09 0325 IandO 24 Hour Summary 08/09 0000 Intake Total 3377 Output Total 1477 Balance 1900 Intake, IV 3051 Intake, Tube 26 Feeding Intake, Tube 300 Irrigant Number 0 Unmeasured Voids Output, 350 Gastric Drainage Output, Stool 0 Output, Urine 1127 Patient 233 lb Weight Exam: somnolent on precedex, still w confusion RRR,nl s1/s2 course BS bilaterally R > L soft, nt, nd, + BS no LE edema Medications: Medications Current Sig/Antonella Start time Last Medication Dose Route Stop Time Status Admin Acetaminophen 500 MG Q6HPRN PRN 08/04 1930 AC 08/08 (TYLENOL ORAL LIQ) TUBE 0548 Albuterol Sulfate 2.5 MG Q6HPRN PRN 07/28 0030 AC (VENTOLIN/PROVENTIL INH 2.5MG/3ML INH.NEB) Albuterol/Ipratropium 3 ML Q4HRT 08/04 2030 AC 08/09 (DUONEB 0.5-3 MG/3 INH 0842 ML INH.NEB) Albuterol/Ipratropium 3 ML Q2HPRN PRN 07/28 0100 AC (DUONEB 0.5-3 MG/3 INH ML INH.NEB) Ampicillin Sodium/ 3 GM Q12H@18 08/04 1800 AC 08/09 Sulbactam Sodium IV 08/11 1759 0614 (UNASYN VIAL) Sodium Chloride 100 ML (Sodium Chloride 0.9%) Budesonide 0.5 MG BID 08/04 2100 AC 08/09 (PULMOCORT 0.5MG/2ML INH 0842 INH.NEB) Buspirone HCl 20 MG TIDWM 08/05 0800 AC 08/09 (BUSPAR TAB) TUBE 0850 Carbamazepine 200 MG TIDWM 08/05 0800 AC 08/09 (TEGRETOL TAB) TUBE 0849 Clopidogrel Bisulfate 75 MG QDAY 08/05 0900 AC 08/09 (PLAVIX TAB) TUBE 0851 Dexmedetomidine HCl 400 MCG TITRATE(SEE SHAUNA VFS) 08/07 1330 AC 08/09 (PRECEDEX VIAL) IV 0955 Sodium Chloride 96 ML (Sodium Chloride 0.9%) Enoxaparin Sodium 40 MG QDAY 07/28 0900 AC 08/09 (LOVENOX D.SYR) SC 0850 Esomeprazole 40 MG BIDAC 08/05 0700 AC 08/09 Magnesium TUBE 0615 (NEXIUM CAP (TXI)) Fluoxetine HCl 20 MG QDAY 08/05 0900 AC 08/09 (PROZAC CAP) TUBE 0851 Haloperidol Lactate 2 MG Q4HPRN PRN 08/07 0900 AC 08/09 (HALDOL AMP) IV 1024 Heparin Sodium See Dose Q24H 08/06 0900 AC 08/06 (Porcine) Insts (1) IV 0807 (HEP-LOCK *10*UNITS/ ML IV D.SYR.PF) Heparin Sodium See Dose PRN PRN 08/05 1500 AC (Porcine) Insts (2) IV (HEP-LOCK *10*UNITS/ ML IV D.SYR.PF) Levothyroxine Sodium 0.125 MG QDAYAC 08/09 0700 AC 08/09 (SYNTHROID TAB) PO 0615 Loperamide HCl 2 MG PRN PRN 08/04 193 AC (IMODIUM AD ORAL TUBE LIQUID UDC) Melatonin 5 MG QHS 08/08 2200 AC 08/08 (MELATONIN TAB) TUBE 2127 Menthol/Methyl 1 APPL BIDPRN PRN 07/28 0030 AC 07/29 Salicylate TP 221 (MIHIR ALVAREZ T.CREAM) Ondansetron HCl 4 MG BIDPRN PRN 08/04 1930 AC (ZOFRAN TAB) TUBE Ondansetron HCl 4 MG Q6HPRN PRN 07/27 2100 AC 08/04 (ZOFRAN VIAL) IV 212 Phenobarbital Sodium 100 MG TIDPRN PRN 08/09 0100 AC 08/09 (PHENOBARBITAL VIAL) IV 0051 Pravastatin Sodium 40 MG QHS 08/04 2200 AC 08/08 (PRAVACHOL TAB) TUBE 2044 Pregabalin 150 MG BID 08/04 2100 AC 08/09 (LYRICA CAP) TUBE 0955 Promethazine HCl 6.25 MG Q6HPRN PRN 08/02 1830 AC 08/03 (PHENERGAN VIAL IV 1003 (TXI)) Sodium Chloride 50 ML (Sodium Chloride 0.9%) Quetiapine Fumarate 100 MG QHS 08/08 2200 AC 08/08 (SEROQUEL TAB) TUBE 2127 Sodium Chloride See Dose Q24H 08/06 0900 AC 08/06 (Sodium Chloride Insts (3) IV 0807 0.9% FLUSH D.SYR) Sodium Chloride See Dose PRN PRN 08/05 1500 AC (Sodium Chloride Insts (4) IV 0.9% FLUSH D.SYR) Dose Instructions: (1)Heparin Sodium (Porcine) (HEP-LOCK *10*UNITS/ML IV D.SYR.PF): 50-200 UNITS (2)Heparin Sodium (Porcine) (HEP-LOCK *10*UNITS/ML IV D.SYR.PF): 50-200 UNITS (3)Sodium Chloride (Sodium Chloride 0.9% FLUSH D.SYR): 10-40 ML (4)Sodium Chloride (Sodium Chloride 0.9% FLUSH D.SYR): 10-40 ML Radiology Impressions: Recent Impressions (48H) RADIOLOGY - PORTABLE CHEST 08/08 0528 Report Impression - Status: SIGNED Entered: 08/08/2020 0752 IMPRESSION: Worsening appearance of the lungs. Impression By: KOSTA CABRERA M.D. RADIOLOGY - PORTABLE CHEST 08/09 0436 Report Impression - Status: SIGNED Entered: 08/09/2020 0721 IMPRESSION: Worsening bilateral hazy interstitial pulmonary opacities left greater than right Impression By: CIRO HOUSTON M.D. Lab Results: Lab 24hr (CBC/BMP Fishbone) 08/09/20 0445: Ionized Calcium 1.12 L 08/09/20 0445: [Embedded Image Not Available] Anion Gap 8, Est GFR ( Amer) Greater than 60, Est GFR (Non-Af Amer) Greater than 60 , BUN/Creatinine Ratio 27 H, Glucose 150 H, Total Calcium 8.1 L, Phosphorus 1.70 L, Magnesium 1.6, RBC 2.98 L, MCV 93.6, MCHC 31.5 L, RDW 15.3 H, MPV 11.6, Seg Neutrophils % 64.0, Band Neutrophils % 15.0 H, Lymphocytes % 3.0 L, Monocytes % 13.0 H, Eosinophils % 2.0, Basophils % 1.0, Metamyelocytes % 1.0, Myelocytes % 1.0, Neutrophils # 12.22 H, Band Neutrophils # 2.87, Lymphocytes # 0.57 L, Monocytes # 2.48 H, Eosinophils # 0.38, Basophils # 0.19, Metamyelocytes # 0.19, Myelocytes # 0.19, Nucleated RBCs 0.0, Platelet Estimate ADEQUATE, Polychromasia 1+, Hypochromasia 1+ Microbiology: Microbiology (72hr) Date/Time Procedure - Status Source Growth 08/08 900 Sputum Culture - CAN SPUTUM Cancelled: Cancelled via OE: Unable to Obtain Test 08/08 900 Gram Stain - CAN SPUTUM Cancelled: Cancelled via OE: Unable to Obtain Test Assessment/Plan Assessment/Problem List: 1. Acute hypoxemic respiratory failure 70 y/o with PMHx of COPD, HFpEF, CVA, and Former Tobacco Abuse presented to [facility] emergency department on 07/27 secondary to Syncope and was admitted to telemetry. Our service was consulted on 08/04 secondary to Worsening Hypoxemia requiring HFNC. She is being transferred to the D-ICU. ASSESSMENT: - LLL Aspiration Pneumonia - Acute Hypoxemic Respiratory Failure 2/2 above - Nausea and Vomitting - Encephalopathy - TASHI 2/2 Dehydration - HFpEF (EF 60-65% per Echo 07/2020) - Tobacco Abuse, in Remission - Obesity - Hx of COPD (no PFTs on file) - Hx of CVA PLAN: - Currently oxygenating adequately on 40L/50% FiO2 via HFNC. Continue to wean with goal > SpO2 88% - CXR 08/09 shows worsening bilateral airspace disease - judicious precedex gtt - No documented fevers. Mild leukocytosis. Urine Ag/SARS-CoV-2 negative. - c/w IV Unasyn (Day #6/7) for aspiration pneumonia - Abdominal X-ray ==> neg for ileus/obstruction - c/w TFs , add free water *(hypernatremia) - Continue scheduled and PRN Duonebs. Add Budesonide. Resume home Symbicort upon discharge. - Continue Incentive Spirometry. Add Acapella Flutter Valve and Hypertonic Saline Nebs for proper pulmonary toilet - improved renal function w fluids - start lasix 40 IV daily - F/E/N: HL fluids/replete lytes as needed /c/w TFs - GI/DVT Prophylaxis: PO Pantoprazole/Lovenox - CODE STATUS: Full Code cc time 32 min Disclaimer This dictation was created using voice recognition software. Phonetic and/or minor grammatical errors may exist. eSign Date and Time Morris Alonso MD Verified/Reviewed by 08/09/20 1046 [facility]Adjuster And [facility] CHIROPRACTIC ASSISTANT Progress Note [facility] Speech/Language Pathology Inpatient Missed Visit Note Location: Bedside. Attempted to visit patient for therapy, but was unable for the following reasons: Clinical Reason Pt continues to be encephalopatic/delirio us; not appropriate for p.o. trials. RN present and in agreement. Return Plan: Will sign off; please re-consult ST when pt's condition improves and is appropriate for p.o. trials. If there are any questions regarding this service, please contact the Acute Therapy Department at extension [phone] Signed by: LIZABETH VENEGAS 08/09/2020 10:55:37 [facility] PATIENT NAME: ANDRE BLANCA [facility] Dr. Andrea MEDICAL REC #: [id number] [place] [address] ADMIT DATE: 07/27/20 SERVICE DATE: 08/09/20 Speech-Language Progress Note ATTENDING PHY: Marta Horvath DO Normal [facility] BMPon 08-08-2020 Anion gap [Moles/Vol] 11 mmol/L Normal 5-16 [facility] Comment on above: Order Comment: Maciel s: M Minimal Draw: Y Performed By: #### L 500.32514, L500.53075 #### [facility] [place] [address] Calcium [Mass/Vol] 8.0 mg/dL Low 8.5-10.5 [facility] Comment on above: Order Comment: Maciel s: M Minimal Draw: Y Result Comment: NOTE NEW NORMAL RANGE DUE TO REAGENT CHANGE Performed By: #### L 500.13000, L500.08264 #### [facility] [address] [place] [address] Chloride [Moles/Vol] 114 mmol/L High 98-107 [facility] Comment on above: Order Comment: Maciel s: M Minimal Draw: Y Performed By: #### L 500.13628, L500.81355 #### [facility] [address] [place] [address] CO2 [Moles/Vol] 24.0 mmol/L Normal 21-32 [facility] Comment on above: Order Comment: Abundiou s: M Minimal Draw: Y Performed By: #### L 500.68143, L500.53252 #### [facility] [address] [place] [address] Creatinine [Mass/Vol] 0.76 mg/dL Normal 0.510-0.950 [facility] Comment on above: Order Comment: Abundiou s: M Minimal Draw: Y Result Comment: Geraldine ents receiving either N-Acetylcysteine (NAC) or Metamizole prior to venipuncture, may have falsely depressed results. Performed By: #### L 500.70196, L500.32081 #### [facility] [address] [place] [address] Glucose [Mass/Vol] 136 mg/dL High 70-100 [facility] Comment on above: Order Comment: Abundiou s: M Minimal Draw: Y Result Comment: 70-1 00- Normal Fasting; 100-125 Impaired Fasting; greater than 126 on more than one result- Diabetes. ADA guidelines. Results may be falsely elevated after the administration of Sulfapyridine. Results may be falsely depressed after the administration of Sulfasalazine. Performed By: #### L 500.15046, L500.90004 #### [facility] [address] [place] [address] Potassium [Moles/Vol] 3.4 mmol/L Low 3.5-5.1 [facility] Comment on above: Order Comment: Campu s: M Minimal Draw: Y Performed By: #### L 500.40088, L500.72129 #### [facility] [address] [place] [address] Sodium [Moles/Vol] 149 mmol/L High 136-145 [facility] Comment on above: Order Comment: Campu s: M Minimal Draw: Y Performed By: #### L 500.18925, L500.49400 #### [facility] [address] [place], [place] [address] Urea nitrogen [Mass/Vol] 20 mg/dL Normal 7-26 [facility] Comment on above: Order Comment: Campu s: M Minimal Draw: Y Performed By: #### L 500.61623, L500.76288 #### [facility] [address] [place], [place] [address] Urea nitrogen/Creatinine [Mass ratio] 26 mg/mg High 15-24 [facility] Comment on above: Order Comment: Campu s: M Minimal Draw: Y Performed By: #### L 500.77142, L500.51792 #### [facility] [address] [place] [address] CBC W/DIFFon 08-08-2020 BASO ABS 0.10 K/CU MM Normal 0-0.2 [facility] Comment on above: Order Comment: Campu s: M Performed By: #### L 200.30002 #### [facility] [address] [place] [address] Basophils/100 WBC (Bld) 0.4 % Normal 0-2 [facility] Comment on above: Order Comment: Campu s: M Performed By: #### L 200.64069 #### [facility] [address] [place] [address] EOS ABS 0.10 K/CU MM Normal 0-0.5 [facility] Comment on above: Order Comment: Campu s: M Performed By: #### L 200.42128 #### [facility] [address] [place], [place] [address] Eosinophils/100 WBC (Bld) 0.5 % Normal 0-5 [facility] Comment on above: Order Comment: Campu s: M Performed By: #### L 200.25381 #### [facility] [address] [place] [address] Erythrocyte distribution width (RBC) [Ratio] 14.9 % High 11-14.5 [facility] Comment on above: Order Comment: Campu s: M Performed By: #### L 200.03446 #### [facility] [address] [place] [address] Hematocrit (Bld) [Volume fraction] 27.8 % Low 35.0-47.0 [facility] Comment on above: Order Comment: Campu s: M Performed By: #### L 200.86955 #### [facility] [address] [place] [address] Hemoglobin (Bld) [Mass/Vol] 8.7 g/dL Low 11.5-15.5 [facility] Comment on above: Order Comment: Campu s: M Result Comment: Repe ated and verified. Performed By: #### L 200.36997 #### [facility] [address] [place] [address] IMMATR GRAN ABS 0.90 K/CU MM Normal Less than 2 [facility] Comment on above: Order Comment: Campu s: M Performed By: #### L 200.80200 #### [facility] [address] [place] [address] IMMATURE GRAN % 4.6 % Normal Less than 2 [facility] Comment on above: Order Comment: Campu s: M Performed By: #### L 200.99369 #### [facility] [address] [place] [address] Lymphocytes (Bld) [#/Vol] 1.20 K/CU MM Normal 0.9-4.4 [facility] Comment on above: Order Comment: Campu s: M Performed By: #### L 200.54549 #### [facility] [address] [place] [address] Lymphocytes/100 WBC (Bld) 6.2 % Low 20-40 [facility] Comment on above: Order Comment: Campu s: M Performed By: #### L 200.85902 #### [facility] [address] [place] [address] MCHC (RBC) [Mass/Vol] 31.3 g/dL Low 32.0-36.0 [facility] Comment on above: Order Comment: Campu s: M Performed By: #### L 200.63901 #### [facility] [address] [place] [address] MCV (RBC) [Entitic vol] 94.6 fL Normal 80.0-99.0 M [facility] Comment on above: Order Comment: Campu s: M Performed By: #### L 200.87471 #### [facility] [address] [place] [address] MONO ABS 1.50 K/CU MM High 0.1-1.1 [facility] Comment on above: Order Comment: Campu s: M Performed By: #### L 200.37157 #### [facility] [address] [place] [address] Monocytes/100 WBC (Bld) 7.9 % Normal 2-10 M [facility] Comment on above: Order Comment: Campu s: M Performed By: #### L 200.07700 #### [facility] [address] [place] [address] NEUTROPHIL ABS 15.00 K/CU MM High 2.0-8.3 [facility] Comment on above: Order Comment: Campu s: M Performed By: #### L 200.11472 #### [facility] [address] [place] [address] Neutrophils/100 WBC (Bld) 80.4 % High 45-75 [facility] Comment on above: Order Comment: Campu s: M Performed By: #### L 200.51285 #### [facility] [address] [place] [address] Nucleated RBC/100 WBC (Bld) [Ratio] 0.0 % Normal Less than 1 [facility] Comment on above: Order Comment: Campu s: M Performed By: #### L 200.23134 #### [facility] [address] [place] [address] Platelet mean volume (Bld) [Entitic vol] 11.4 fL Normal 9.4-12.4 [facility] Comment on above: Order Comment: Campu s: M Performed By: #### L 200.49780 #### [facility] [address] [place] [address] Platelets (Bld) [#/Vol] 198 K/CU MM Normal 150-450 [facility] Comment on above: Order Comment: Campu s: M Performed By: #### L 200.19285 #### [facility] [address] [place] [address] RBC (Bld) [#/Vol] 2.94 M/CU MM Low 3.90-5.30 [facility] Comment on above: Order Comment: Campu s: M Performed By: #### L 200.22478 #### [facility] [address] [place] [address] WBC (Bld) [#/Vol] 18.7 K/CUMM High 4.5-11.0 [facility] Comment on above: Order Comment: Campu s: M Performed By: #### L 200.37743 #### [facility] [address] [place] [address] DIET.[facility] 08-08-2020 DIET.[facility] Patient Name: ANDRE BLANCA [address] [place] [address] Date of : [address] [address] Unit Number: [id number] Nutrition Assessments Patient Status: ADM IN Attending Doctor: Marta Horvath DO Service Date: 08/08/20 1226 MNT - Assessment Diagnosis/Intervention MNT Assessment due to: Receivng Nutrition Supprt (TF) Malnutrition Recommended Malnutrition Diagnosis: Does not meet criteria for malnutrition. Nutrition Diagnosis: Inadequate Oral Intake Related to: inability to consume sufficient energy d/t nausea/vomiting and significant encephalopathy aeb 0-10% intakes since 08/02/20 and current NPO status. Intervention and Plan Food and Nutrient Delivery: Current Estimated Energy Needs 1480 calories per day, 14 calories/kg current weight determined using [employer] Obesity Guidelines. Current Estimated Protein Needs 92 gm daily, 1.5 gm/kg ideal weight. Current estimated fluid needs 2288 mL per day. Current needs based on Current weight of 233 pounds/105.7 kg for energy needs, IBW of 135#/61.4 kg for protein needs and adjusted weight of 159.5#/72.5 kg for fluid needs. Intervention: Recommend continuous TF of Vital AF 1.2 @50 mL/hr to provide 1200 mL, 1440 calories, 90 gm protein, and 973 mL free water/day. (Meets 97% est energy and 98% est protein needs. Coordination of Nutrition Care: Discussed above TF recommendations with pt's RN. Monitoring and Evaluation Goal: Pt will meet >85% est energy and protein needs x 7 days. Will monitor TF tolerance, weight, and pertinent labs. Client History Admitted for acute hypoxemic respiratory failure, syncope. PMH: Chronic knee pain, h/o CVA , COPD, hypothyroidism, IBS, migraines, fibromyalgia, hypotension. Pt was transferred to D-ICU on 08/04/20 d/t worsening hypoxemia requiring HFNC. Pt noted to have LLL aspiration pneumonia and TASHI d/t dehydration. Plan is to start TF today. Biochemical Data Labs: WBC 18.7 H, Na+ 149 H, K+ 3.4 L, Glucose 136 H, Total Calcium 8.0 L Medical Tests and Procedures 08/04/20 ST evaluation: Recommended Regular diet, thin liquids. ST unable to re-evaluate pt since this date d/t pt delirious and not following commands. 08/08/20 Chest x-ray: Worsening apperance of the lungs. Abdominal x-ray negative for ileus/obstruction. Meds Likely to Interact w/Nutr NaCl, Heparin, Plavix, Synthroid, Pravastatin, Lovenox Diet History Pt was following a regular diet TENTER and was not using any oral nutrition supplements. Pt had previously denied chewing/swallowing problems per RD note from 08/03/20. Pt was receiving a Regular diet from 07/28-08/04/20. Pt was then changed to NPO except ice chips and meds. On 08/06/20, diet order was changed to NPO. TF was ordered this date. Current Nutrition Prescription NPO. Current TF order is Vital AF 1.2 @20 mL/hr. Current Intake Intake of meals from 08/02-08/04/20 was 0-10%. Pt has been NPO since 08/04/20. Anthropometric Measurements Anthropometric Measurements: Height:5 Feet, 7 Inches, 170.18 cm, Weight: 233 lbs, 105.700 kg BMI: 36.50. Admission Weight: 235.7# Weight this admission ranged: 226.6-235.7# Per [facility] Weight History: 02/2019: 223.6-234.5# BMI Criteria: 30-39.9 Obese Weight Changes: Some weight fluctuation since admission. CBW is stable compared to admission weight. Nutrition Focused PhysicalExam Orbital: No fat loss Triceps: No fat loss Temporalis: No muscle loss Pectoralis: No muscle loss Deltoids: No muscle loss Interosseous: No muscle loss Quadriceps: No muscle loss Gastrocnemius: No muscle loss Edema: 1+ mild generalized Minutes of Medical Nutrition Therapy: 30 Minutes Disclaimer This dictation was created using voice recognition software. Phonetic and/or minor grammatical errors may exist. eSign Date and Time Tila Pritchett RD LD Verified/Reviewed by 08/08/20 1256 Normal [facility] Nutrition Assessments Normal [facility] GFR ESTon 08-08-2020 IF AMER Greater than 60 [facility] Comment on above: Order Comment: Maciel s: Ramiro Minimal Draw: Y Performed By: #### L 500.02871, L500.26514 #### [facility] [place] [address] IF non-AFR AMER Greater than 60 [facility] Comment on above: Order Comment: Maciel joe: Ramiro Minimal Draw: Y Performed By: #### L 500.71474, L500.07042 #### [facility] [address] [place] [address] # [phone] [facility] 08-08-2020 PROG [facility]: [facility] Date of : [address] [place], [place] [address] Unit Number: [id number] Progress Note-Hospitalist Patient Status: ADM IN Attending Doctor: Marta Horvath DO Service Date: 08/08/20 1528 Chief Complaint Chief Complaint Syncope Subjective S: (2 ROS minimum) Patient was thought to be a poor historian. Knew her name and that she was in [place] but could not tell me that she was at a hospital or what year it was. Some slight complaints of some shortness of breath. Denied any other acute problems. Denied fever and chills Objective (ROS) Nursing Vitals Vital Signs (Last) Result Date Time Pulse Ox 92% 08/08 1525 O2 Delivery HIGH FLOW NC 08/08 1525 O2 Flow Rate 55% 08/08 1525 B/P 96/54 08/08 1200 B/P Mean 71 08/08 1200 Temp 99.3 08/08 1200 Pulse 63 08/08 1200 Resp 15 08/08 1200 Physical Exam Physical Examination Notes General: Elderly female, patient is alert and oriented x1-2 and is in no acute respiratory distress HEENT: Normal cephalic, atraumatic, PERRLA Lungs: Some coarse breath sounds bilaterally, some transmitted upper airway sounds. No wheezing noted Cardiac: Regular rhythm and rate, no murmurs, no rubs. Abdomen: Soft, nontender, nondistended, bowel sounds are active. Extremities: No edema, cyanosis, or clubbing. Skin: No rashes or breakdown. Musculoskeletal: Normal MS exam, moves all extremities Lymphatic: Negative cervical, supra-clavicular, groin lymphadenopathy. Neurologic: Cranial nerves from II-XII intact grossly, no focal deficits. Psychiatry: Some confusion noted Diagnostic Data: Lab 24hr (CBC/BMP Fishbone) 08/08/20 0840: Urine Color Yellow, Urine Appearance Clear, Urine pH 5.0, Ur Specific [place] 1.026, Urine Protein 100, Urine Glucose (UA) 50, Urine Ketones 80, Urine Blood LARGE, Urine Nitrite NEGATIVE, Urine Bilirubin NEGATIVE, Urine Urobilinogen NEG, Ur Leukocyte Esterase 25, Urine RBC 432 H, Urine WBC 36 H, Ur Squamous Epith Cells 0, Urine Bacteria NONE, Hyaline Casts 1, Urine Mucus TRACE 08/08/20 0431: [Embedded Image Not Available] Anion Gap 11, Est GFR ( Amer) Greater than 60, Est GFR (Non-Af Amer) Greater than 60, BUN/Creatinine Ratio 26 H, Glucose 136 H, Total Calcium 8.0 L, RBC 2.94 L, MCV 94.6, MCHC 31.3 L, RDW 14.9 H, MPV 11.4, Immature Gran % (Auto) 4.6, Abs Immat Gran (auto) 0.90, Seg Neutrophils % 80.4 H, Lymphocytes % 6.2 L, Monocytes % 7.9, Eosinophils % 0.5, Basophils % 0.4, Neutrophils # 15.00 H, Lymphocytes # 1.20, Monocytes # 1.50 H, Eosinophils # 0.10, Basophils # 0.10, Nucleated RBCs 0.0 08/08/20 0000: Urine Color Cancelled, Urine Appearance Cancelled, Urine pH Cancelled, Ur Specific [place] Cancelled, Urine Protein Cancelled, Urine Glucose (UA) Cancelled, Urine Ketones Cancelled, Urine Blood Cancelled, Urine Nitrite Cancelled, Urine Bilirubin Cancelled, Urine Urobilinogen Cancelled, Ur Leukocyte Esterase Cancelled Assessment and Plan Conclusion 1. Pneumonia Some concern this may been secondary to aspiration. Patient continues with Unasyn. White blood cell count on last check was 18.7. Patient was previously checked for strep and Legionella antigens and was negative. Pulmonology has been following. Chest x-ray today was read as worsening appearance of the lungs. Bilateral pulmonary infiltrates were noted. Patient was on high flow 2. Acute respiratory failure with hypoxia Possibly secondary to recent pneumonia. Chest x-ray showing bilateral pulmonary infiltrates 3. TASHI (acute kidney injury) TASHI thought to be improved. Creatinine was previously as high as 4.24, was 0.76 on check this morning 4. Syncope No current complaints of lightheadedness or dizziness. Patient had positive orthostats noted. Echocardiogram showed an EF of 60 to 65% 5. Hypokalemia Potassium level low at 3.4 today. Patient was ordered IV potassium replaced, check magnesium level in the a.m. Disclaimer This dictation was created using voice recognition software. Phonetic and/or minor grammatical errors may exist. eSign Date and Time Delia Adam MD Verified/Reviewed by 08/08/20 1542 [facility] Progress Note-Hospitalist [facility] PROG.[facility] 08-08-2020 PROG.[facility] Patient Name: ANDRE BLANCA [address] [employer] Date of : [address] [address] Unit Number: [id number] Progress Note-Adjuster And Inspector Patient Status: ADM IN Attending Doctor: Marta Horvath DO Service Date: 08/08/20 0949 Progress Note-Adjuster And Inspector Subjective Subjective: still w sig encephalopathy requiring precedex still requiring high flow O2 Objective Vital Signs: Vital Signs (Last) Result Date Time Pulse Ox 92 08/08 0730 O2 Delivery HIGH FLOW NC 08/08 07 O2 Flow Rate 55% 08/08 07 Temp 100.1 08/08 0648 B/P 140/69 08/08 0600 B/P Mean 99 08/08 0600 Pulse 112 08/08 0600 Resp 43 08/08 06 IandO 24 Hour Summary 08/08 0000 Intake Total 3786 Output Total 1880 Balance 1906 Intake, IV 3786 Output, 450 Gastric Drainage Output, Urine 1430 Exam: somnolent on precedex, still w confusion RRR,nl s1/s2 course BS bilaterally R > L soft, nt, nd, + BS no LE edema Medications: Medications Current Sig/Antonella Start time Last Medication Dose Route Stop Time Status Admin Acetaminophen 500 MG Q6HPRN PRN 08/04 193 AC 08/08 (TYLENOL ORAL LIQ) TUBE 0548 Albuterol Sulfate 2.5 MG Q6HPRN PRN 07/28 0030 AC (VENTOLIN/PROVENTIL INH 2.5MG/3ML INH.NEB) Albuterol/Ipratropium 3 ML Q4HRT 08/04 2030 AC 08/08 (DUONEB 0.5-3 MG/3 INH 0746 ML INH.NEB) Albuterol/Ipratropium 3 ML Q2HPRN PRN 07/28 0100 AC (DUONEB 0.5-3 MG/3 INH ML INH.NEB) Ampicillin Sodium/ 3 GM Q12H@18 12/22 1800 AC 08/08 Sulbactam Sodium IV 08/11 1759 0530 (UNASYN VIAL) Sodium Chloride 100 ML (Sodium Chloride 0.9%) Budesonide 0.5 MG BID 08/04 2100 AC 08/08 (PULMOCORT 0.5MG/2ML INH 0746 INH.NEB) Buspirone HCl 20 MG TIDWM 08/05 0800 AC 08/08 (BUSPAR TAB) TUBE 0834 Carbamazepine 200 MG TIDWM 08/05 0800 AC 08/08 (TEGRETOL TAB) TUBE 0838 Clopidogrel Bisulfate 75 MG QDAY 08/05 0900 AC 08/08 (PLAVIX TAB) TUBE 0834 Dexmedetomidine HCl 400 MCG TITRATE(SEE SHAUNA VFS) 08/07 1330 AC 08/08 (PRECEDEX VIAL) IV 0913 Sodium Chloride 96 ML (Sodium Chloride 0.9%) Enoxaparin Sodium 40 MG QDAY 07/28 0900 AC 08/08 (LOVENOX D.SYR) SC 0834 Esomeprazole 40 MG BIDAC 08/05 0700 AC 08/08 Magnesium TUBE 0529 (NEXIUM CAP (TXI)) Fluoxetine HCl 20 MG QDAY 08/05 0900 AC 08/08 (PROZAC CAP) TUBE 0834 Haloperidol Lactate 2 MG Q4HPRN PRN 08/07 0900 AC 08/08 (HALDOL AMP) IV 0610 Heparin Sodium See Dose Q24H 08/06 0900 AC 08/06 (Porcine) Insts (1) IV 0807 (HEP-LOCK *10*UNITS/ ML IV D.SYR.PF) Heparin Sodium See Dose PRN PRN 08/05 1500 AC (Porcine) Insts (2) IV (HEP-LOCK *10*UNITS/ ML IV D.SYR.PF) Levothyroxine Sodium 0.125 MG QDAYAC 08/05 0700 AC 08/08 (SYNTHROID TAB) TUBE 0530 Loperamide HCl 2 MG PRN PRN 08/04 1930 AC (IMODIUM AD ORAL TUBE LIQUID UDC) Melatonin 3 MG QHS 08/040 AC 08/07 (MELATONIN TAB) TUBE 2137 Menthol/Methyl 1 APPL BIDPRN PRN 07/28 0030 AC 07/29 Salicylate TP 2217 (MIHIR ALVAREZ T.CREAM) Ondansetron HCl 4 MG BIDPRN PRN 08/04 1930 AC (ZOFRAN TAB) TUBE Ondansetron HCl 4 MG Q6HPRN PRN 07/27 2100 AC 08/04 (ZOFRAN VIAL) IV 2126 Pravastatin Sodium 40 MG QHS 08/04 2200 AC 08/07 (PRAVACHOL TAB) TUBE 2136 Pregabalin 150 MG BID 08/04 2100 AC 08/08 (LYRICA CAP) TUBE 0833 Promethazine HCl 6.25 MG Q6HPRN PRN 08/02 1830 AC 08/03 (PHENERGAN VIAL IV 1003 (TXI)) Sodium Chloride 50 ML (Sodium Chloride 0.9%) Quetiapine Fumarate 50 MG QHS 08/07 2200 AC 08/07 (SEROQUEL TAB) TUBE 2136 Sodium Chloride See Dose Q24H 08/06 0900 AC 08/06 (Sodium Chloride Insts (3) IV 0807 0.9% FLUSH D.SYR) Sodium Chloride See Dose PRN PRN 08/05 1500 AC (Sodium Chloride Insts (4) IV 0.9% FLUSH D.SYR) Radiology Impressions: Recent Impressions (48H) RADIOLOGY - ABDOMEN OR KUB 08/06 1215 Report Impression - Status: SIGNED Entered: 08/06/2020 1303 IMPRESSION: The enteric tube is in the proximal stomach with the tip extending superiorly. Impression By: JASON PATIÑO M.D. RADIOLOGY - PORTABLE CHEST 08/08 0528 Report Impression - Status: SIGNED Entered: 08/08/2020 0752 IMPRESSION: Worsening appearance of the lungs. Impression By: KOSTA CABRERA M.D. Lab Results: Lab 24hr (CBC/BMP Fishbone) 08/08/20 0840: Urine Color Yellow, Urine Appearance Clear, Urine pH 5.0, Ur Specific [place] 1.026, Urine Protein 100, Urine Glucose (UA) 50, Urine Ketones 80, Urine Blood LARGE, Urine Nitrite NEGATIVE, Urine Bilirubin NEGATIVE, Urine Urobilinogen NEG, Ur Leukocyte Esterase 25, Urine RBC 432 H, Urine WBC 36 H, Ur Squamous Epith Cells 0, Urine Bacteria NONE, Hyaline Casts 1, Urine Mucus TRACE 08/08/20 0431: [Embedded Image Not Available] Anion Gap 11, Est GFR ( Amer) Greater than 60, Est GFR (Non-Af Amer) Greater than 60, BUN/Creatinine Ratio 26 H, Glucose 136 H, Total Calcium 8.0 L, RBC 2.94 L, MCV 94.6, MCHC 31.3 L, RDW 14.9 H, MPV 11.4, Immature Gran % (Auto) 4.6, Abs Immat Gran (auto) 0.90, Seg Neutrophils % 80.4 H, Lymphocytes % 6.2 L, Monocytes % 7.9, Eosinophils % 0.5, Basophils % 0.4, Neutrophils # 15.00 H, Lymphocytes # 1.20, Monocytes # 1.50 H, Eosinophils # 0.10, Basophils # 0.10, Nucleated RBCs 0.0 Assessment/Plan Assessment/Problem List: 1. Acute hypoxemic respiratory failure 70 y/o with PMHx of COPD, HFpEF, CVA, and Former Tobacco Abuse presented to [facility] emergency department on 07/27 secondary to Syncope and was admitted to telemetry. Our service was consulted on 08/04 secondary to Worsening Hypoxemia requiring HFNC. She is being transferred to the D-ICU. ASSESSMENT: - LLL Aspiration Pneumonia - Acute Hypoxemic Respiratory Failure 2/2 above - Nausea and Vomitting - Encephalopathy - TASHI 2/2 Dehydration - HFpEF (EF 60-65% per Echo 07/2020) - Tobacco Abuse, in Remission - Obesity - Hx of COPD (no PFTs on file) - Hx of CVA PLAN: - Currently oxygenating adequately on 40L/50% FiO2 via HFNC. Continue to wean with goal > SpO2 88% - CXR 08/08 shows worsening bilateral airspace disease - judicious precedex gtt - No documented fevers. Mild leukocytosis. Urine Ag/SARS-CoV-2 negative. - c/w IV Unasyn (Day #5) for aspiration pneumonia - Abdominal X-ray ==> neg for ileus/obstruction - start TFs - Continue scheduled and PRN Duonebs. Add Budesonide. Resume home Symbicort upon discharge. Recommend Complete PFTs as outpatient - Continue Incentive Spirometry. Add Acapella Flutter Valve and Hypertonic Saline Nebs for proper pulmonary toilet - improved renal function w fluids, d/c maintenance fluids - F/E/N: HL fluids/replete lytes as needed /start TFs - GI/DVT Prophylaxis: PO Pantoprazole/Lovenox - CODE STATUS: Full Code cc time 32 min Disclaimer This dictation was created using voice recognition software. Phonetic and/or minor grammatical errors may exist. eSign Date and Time Morris Alonso MD Verified/Reviewed by 08/08/20 0954 [facility] Progress Note-Adjuster And Inspector Normal [facility] RESP/SPUT CULTon 08-08-2020 RESP/SPUT CULT This report has been cancelled [facility] Comment on above: Order Comment: Cance lled via OE: Unable to Obtain Test UA COMPLETEon 08-08-2020 UA LK ESTERASE 25 Normal NEGATIVE [facility] Comment on above: Order Comment: Campu s: M What is the source? URINE Performed By: #### M 150.84830, M150.38737 #### [facility] [address] [place] [address] UA WBC 36 WBC/HPF High 0-5 [facility] Comment on above: Order Comment: Campu s: M What is the source? URINE Performed By: #### M 150.69000, M150.09302 #### [facility] [address] [place] [id number] Color (U) Yellow Normal [facility] Comment on above: Order Comment: Campu s: M What is the source? URINE Performed By: #### M 150.80873, M150.85651 #### [facility] [address] [place] [address] Glucose (U) [Mass/Vol] 50 mg/dL Normal NORMAL [facility] Comment on above: Order Comment: Campu s: M What is the source? URINE Performed By: #### M 150.75165, M150.41813 #### [facility] [place] [address] HYALINE CAST 1 /LPF Normal 0-1 [facility] Comment on above: Order Comment: Campu s: M What is the source? URINE Performed By: #### M 150.66705, M150.55441 #### [facility] [address] [place] [address] Mucus Ql (Urine sed) TRACE Normal NEGATIVE [facility] Comment on above: Order Comment: Campu s: M What is the source? URINE Performed By: #### M 150.10578, M150.08902 #### [facility] [address] [id number] SQUAMOUS EPIS 0 EPI/HPF Normal 0-5 [facility] Comment on above: Order Comment: Campu s: M What is the source? URINE Performed By: #### M 150.84695, M150.91276 #### [facility] [place] [address] UA APPEARANCE Clear Normal CLEAR [facility] Comment on above: Order Comment: Campu s: M What is the source? URINE Performed By: #### M 150.51907, M150.32836 #### [facility] [place] [address] UA BACTERIA NONE Normal NONE [facility] Comment on above: Order Comment: Campu s: M What is the source? URINE Performed By: #### M 150.14139, M150.34389 #### [facility] [place] [address] UA BILIRUBIN Negative Normal NEGATIVE [facility] Comment on above: Order Comment: Campu s: M What is the source? URINE Performed By: #### M 150.65078, M150.33141 #### [facility] [place] [address] UA BLOOD LARGE Normal NEGATIVE [facility] Comment on above: Order Comment: Campu s: M What is the source? URINE Performed By: #### M 150.40300, M150.48727 #### [facility] [address] [place] [address] UA KETONE 80 Normal NEGATIVE [facility] Comment on above: Order Comment: Campu s: M What is the source? URINE Performed By: #### M 150.28282, M150.88117 #### [facility] [address] [place] [address] UA NITRITE Negative Normal NEGATIVE [facility] Comment on above: Order Comment: Campu s: M What is the source? URINE Performed By: #### M 150.55074, M150.04663 #### [facility] [address] [place] [address] UA PH 5.0 Normal 5-6 [facility] Comment on above: Order Comment: Campu s: M What is the source? URINE Performed By: #### M 150.59764, M150.98990 #### [facility] [address] [place] [address] UA PROTEIN 100 Normal NEGATIVE [facility] Comment on above: Order Comment: Campu s: M What is the source? URINE Performed By: #### M 150.23477, M150.53474 #### [facility] [address] [place] [address] UA RBC 432 RBC/HPF High 0-3 [facility] Comment on above: Order Comment: Campu s: M What is the source? URINE Performed By: #### M 150.04236, M150.94886 #### [facility] [address] [place] [address] UA SPEC GRAV 1.026 Normal 1.005-1.030 [facility] Comment on above: Order Comment: Abundiou s: M What is the source? URINE Performed By: #### M 150.88325, M150.63950 #### [facility] [address] [place] [address] UA UROBILINOGEN Negative Normal NORMAL [facility] Comment on above: Order Comment: Campu s: M What is the source? URINE Performed By: #### M 150.24341, M150.90469 #### [facility] [address] [place] [address] BMPon 08-07-2020 Anion gap [Moles/Vol] 9 mmol/L Normal 5-16 [facility] Comment on above: Order Comment: Campu s: MMinimal Draw: Y Performed By: #### L 500.68480, L500.82570 ####[facility] [id number] [place], [place] [address]Ga# [phone] Calcium [Mass/Vol] 7.6 mg/dL Low 8.5-10.5 [facility] Comment on above: Order Comment: Campu s: MMinimal Draw: Y Result Comment: NOTE NEW NORMAL RANGE DUE TO REAGENT CHANGE Performed By: #### L 500.44989, L500.12508 ####[facility] [id number] [place], [place] [address]Mh# [phone] Chloride [Moles/Vol] 110 mmol/L High 98-107 [facility] Comment on above: Order Comment: Campu s: MMinimal Draw: Y Performed By: #### L 500.97748, L500.17567 ####[facility] [id number] [place], [place] [address]Od# [phone] CO2 [Moles/Vol] 26.0 mmol/L Normal 21-32 [facility] Comment on above: Order Comment: Campu s: MMinimal Draw: Y Performed By: #### L 500.31622, L500.25682 ####[facility] [id number] [place], [place] [address]Bn# [phone] Creatinine [Mass/Vol] 0.81 mg/dL Normal 0.510-0.950 [facility] Comment on above: Order Comment: Campu s: MMinimal Draw: Y Result Comment: Geraldine ents receiving either N-Acetylcysteine (NAC) or Metamizole prior to venipuncture, may have falsely depressed results. Performed By: #### L 500.07058, L500.13226 ####[facility] [id number] [place], [place] [address]Df# [phone] Glucose [Mass/Vol] 148 mg/dL High 70-100 [facility] Comment on above: Order Comment: Campu s: MMinimal Draw: Y Result Comment: 70-1 00- Normal Fasting; 100-125 Impaired Fasting; greater than 126 on more than one result- Diabetes. ADA guidelines. Results may be falsely elevated after the administration of Sulfapyridine. Results may be falsely depressed after the administration of Sulfasalazine. Performed By: #### L 500.70116, L500.33012 ####[facility] [id number] [place], [place] [address]Bm# [phone] Potassium [Moles/Vol] 3.4 mmol/L Low 3.5-5.1 [facility] Comment on above: Order Comment: Campu s: MMinimal Draw: Y Performed By: #### L 500.58515, L500.40479 ####[facility] [id number] [place] [address]Pr# [phone] Sodium [Moles/Vol] 145 mmol/L Normal 136-145 [facility] Comment on above: Order Comment: Campu s: MMinimal Draw: Y Performed By: #### L 500.54577, L500.33619 ####[facility] [id number] [place] [address]Ra# [phone] Urea nitrogen [Mass/Vol] 21 mg/dL Normal 7-26 [facility] Comment on above: Order Comment: Campu s: MMinimal Draw: Y Performed By: #### L 500.21454, L500.32460 ####[facility] [id number] [place], [place] [address]Do# [phone] Urea nitrogen/Creatinine [Mass ratio] 26 mg/mg High 15-24 [facility] Comment on above: Order Comment: Campu s: MMinimal Draw: Y Performed By: #### L 500.64616, L500.44938 ####[facility] [id number] [place], [place] [address]Vi# [phone] GFR ESTon 08-07-2020 IF AMER Greater than 60 Normal [facility] Comment on above: Order Comment: Campu s: MMinimal Draw: Y Performed By: #### L 500.73825, L500.74764 ####[facility] [id number] [place], [place] [address]Pn# [phone] IF non-AFR AMER Greater than 60 Normal [facility] Comment on above: Order Comment: Campu s: MMinimal Draw: Y Performed By: #### L 500.33961, L500.91769 ####[facility] [id number] [place], [place] [address]Wo# [phone] PROG [facility] 08-07-2020 PROG [facility] Patient Name: ANDRE BLANCA [address] [facility] [address] Date of : [address] [place] [address] Unit Number: [id number] Progress Note-Hospitalist Patient Status: ADM IN Attending Doctor: Marta Horvath DO Service Date: 08/07/20 1534 Chief Complaint Chief Complaint Syncope Patient is a 70-year-old female with past medical history significant for CVA, hypothyroidism, COPD not on home oxygen, recurrent syncopal episodes presented to [facility] after a syncopal episode. Patient also reported viral symptoms of diarrhea, shortness of breath, decreased appetite, headache, sore throat and myalgias. In ER, patient was found to be hypoxic with SPO2 of 85% on room air, placed on 2 L nasal cannula with SPO2: 94%. Chest x-ray revealed left lower lobe hazy opacity but when I reviewed it personally it does not show any obvious infiltrate. Patient was started on Rocephin, breathing treatments with DuoNeb. Orthostatics were positive and ordered compression hose. PT/OT recommended inpatient therapy, case management on board for discharge planning. Unfortunately on 08/03 patient had aspirated, became hypoxic and started on high flow nasal cannula. On 08/05, patient appeared confused. BMP revealed elevated creatinine of 4. Pulmonology was consulted and patient was transferred to ICU level of care for further management. Subjective S: (2 ROS minimum) Patient seen and examined today. Patient is confused, hallucinating. As per nursing, patient was on Precedex drip for short time and currently she is getting Haldol as needed for agitation/delirium. Objective (ROS) Nursing Vitals Vital Signs (Last) Result Date Time Pulse Ox 94 08/07 1513 O2 Delivery HIGH FLOW NC 08/07 151 O2 Flow Rate 60% 08/07 1513 B/P 123/66 08/07 1400 B/P Mean 88 08/07 1400 Pulse 96 08/07 1400 Resp 35 08/07 1400 Temp 98.6 08/07 1200 Physical Exam Physical Examination Notes General: Pt is not in any acute distress HEENT: PERRL, no rhinorrhea, oral hygiene is good Neck: Supple, no lymphnode swelling or thyromegaly noticed Chest: S1, S2 present, regualr rate and rhythm, no murmurs, rub or gallop noticed Lungs: Clear to auscultation bilaterally, no wheeze or crackles noticed Abdomen: Soft, non distended, non tender, bowel sounds present Neurological: No deficits noticed Vascular: Peripheral pulses palpable and equal bilaterally Psychiatry: Normal mood Skin: No new skin lesions or rash noticed. Diagnostic Data: Lab 24hr (CBC/BMP [facility]) 08/07/20 0450: [Embedded Image Not Available] Anion Gap 9, Est GFR ( Amer) Greater than 60, Est GFR (Non-Af Amer) Greater than 60 , BUN/Creatinine Ratio 26 H, Glucose 148 H, Total Calcium 7.6 L Assessment and Plan Conclusion 1. Acute hypoxemic respiratory failure 2. Pneumonia 3. Syncope 4. Hypothyroidism Assessment: Acute hypoxic respiratory failure secondary to pneumonia Left lower lobe pneumonia Aspiration pneumonia TASHI Syncope Hypothyroidism History of CVA Depression Bipolar disorder History of COPD Plan: -Patient is still on high flow nasal cannula. -Pulmonology on board. Started on budesonide, recommended complete PFTs as outpatient. Added acapella flutter valve and hypertonic saline nebs for proper pulmonary toilet. -Still has NG tube with low intermittent suction. -Creatinine has improved with IV fluids. -Continue IV Unasyn, day 4. -As patient has poor IV access, PICC line was placed on 08/06. -In addition to above, patient finished 5-day course of antibiotics with Rocephin for pneumonia. -Patient has positive orthostats noticed, it seems that patient is not eating well enough and that might be the reason why she is having syncope in addition to medication adverse effects. -Echocardiogram revealed diastolic dysfunction with EF of 60 to 65%. -We will continue home medications appropriately -PT recommended inpatient therapy, case management on board for discharge planning. Disclaimer This dictation was created using voice recognition software. Phonetic and/or minor grammatical errors may exist. eSign Date and Time Gloria Saxena MD Verified/Reviewed by 08/07/20 1537 [facility] Progress Note-Hospitalist [facility] PROG.Rocael 08-07-2020 PROG.[facility] Patient Name: ANDRE BLANCA [address] [employer] [address] Date of : [address] [place] [address] Unit Number: [id number] Progress Note-Adjuster And Inspector Patient Status: ADM IN Attending Doctor: Marta Horvath DO Service Date: 08/07/20 0857 Progress Note-Adjuster And Inspector Subjective Subjective: still confused, pulling out NGs still on high flow O2 Objective Vital Signs: Vital Signs (Last) Result Date Time Pulse Ox 97 08/07 06 B/P 127/56 08/07 652 B/P Mean 81 08/07 652 O2 Delivery HIGH FLOW NC 08/07 652 O2 Flow Rate 60% 08/07 652 Pulse 71 08/07 06 Resp 18 08/07 06 Temp 98.6 08/07 0602 IandO 24 Hour Summary 08/07 0000 Intake Total 2650 Output Total 2710 Balance -60 Intake, IV 2650 Intake, Oral 0 Output, 900 Gastric Drainage Output, Stool 0 Output, Urine 1810 Exam: more awake, still w some confusion RRR,nl s1/s2 course BS bilaterally R > L soft, nt, nd, + BS no LE edema Medications: Medications Current Sig/Antonella Start time Last Medication Dose Route Stop Time Status Admin Acetaminophen 500 MG Q6HPRN PRN 08/04 1930 AC 08/07 (TYLENOL ORAL LIQ) TUBE 0440 Albuterol Sulfate 2.5 MG Q6HPRN PRN 07/28 0030 AC (VENTOLIN/PROVENTIL INH 2.5MG/3ML INH.NEB) Albuterol/Ipratropium 3 ML Q4HRT 08/04 2030 AC 08/07 (DUONEB 0.5-3 MG/3 INH 0718 ML INH.NEB) Albuterol/Ipratropium 3 ML Q2HPRN PRN 07/28 0100 AC (DUONEB 0.5-3 MG/3 INH ML INH.NEB) Ampicillin Sodium/ 3 GM Q12H@18 08/04 1800 AC 08/07 Sulbactam Sodium IV 08/11 1759 0558 (UNASYN VIAL) Sodium Chloride 100 ML (Sodium Chloride 0.9%) Budesonide 0.5 MG BID 08/04 2100 AC 08/07 (PULMOCORT 0.5MG/2ML INH 0717 INH.NEB) Buspirone HCl 20 MG TIDWM 08/05 08 AC 08/07 (BUSPAR TAB) TUBE 0844 Carbamazepine 200 MG TIDWM 08/05 0800 AC 08/07 (TEGRETOL TAB) TUBE 0843 Clopidogrel Bisulfate 75 MG QDAY 08/05 09 AC 08/07 (PLAVIX TAB) TUBE 0844 Dexmedetomidine HCl 400 MCG TITRATE(SEE SHAUNA VFS) 08/06 2100 AC 08/07 (PRECEDEX VIAL) IV 0558 Sodium Chloride 96 ML (Sodium Chloride 0.9%) Enoxaparin Sodium 40 MG QDAY 07/28 09 AC 08/07 (LOVENOX D.SYR) SC 0845 Esomeprazole 40 MG BIDAC 08/05 0700 AC 08/07 Magnesium TUBE 0440 (NEXIUM CAP (TXI)) Fluoxetine HCl 20 MG QDAY 08/05 0900 AC 08/07 (PROZAC CAP) TUBE 0849 Heparin Sodium See Dose Q24H 08/06 0900 AC 08/06 (Porcine) Insts (1) IV 0807 (HEP-LOCK *10*UNITS/ ML IV D.SYR.PF) Heparin Sodium See Dose PRN PRN 08/05 1500 AC (Porcine) Insts (2) IV (HEP-LOCK *10*UNITS/ ML IV D.SYR.PF) Levothyroxine Sodium 0.125 MG QDAYAC 08/05 0700 AC 08/07 (SYNTHROID TAB) TUBE 0440 Loperamide HCl 2 MG PRN PRN 08/04 1930 AC (IMODIUM AD ORAL TUBE LIQUID UDC) Melatonin 3 MG QHS 08/04 2200 AC 08/06 (MELATONIN TAB) TUBE 2321 Menthol/Methyl 1 APPL BIDPRN PRN 07/28 0030 AC 07/29 Salicylate TP 2217 (MIHIR ALVAREZ T.CREAM) Ondansetron HCl 4 MG BIDPRN PRN 08/04 1930 AC (ZOFRAN TAB) TUBE Ondansetron HCl 4 MG Q6HPRN PRN 07/27 2100 AC 08/04 (ZOFRAN VIAL) IV 212 Pravastatin Sodium 40 MG QHS 08/04 2200 AC 08/06 (PRAVACHOL TAB) TUBE 2321 Pregabalin 150 MG BID 08/04 2100 AC 08/06 (LYRICA CAP) TUBE 2321 Promethazine HCl 6.25 MG Q6HPRN PRN 08/02 1830 AC 08/03 (PHENERGAN VIAL IV 1003 (TXI)) Sodium Chloride 50 ML (Sodium Chloride 0.9%) Quetiapine Fumarate 50 MG QHS 08/07 2200 AC (SEROQUEL TAB) TUBE Sodium Chloride See Dose Q24H 08/06 0900 AC 08/06 (Sodium Chloride Insts (3) IV 0807 0.9% FLUSH D.SYR) Sodium Chloride See Dose PRN PRN 08/05 1500 AC (Sodium Chloride Insts (4) IV 0.9% FLUSH D.SYR) Sodium Chloride 4 ML QIDRT 08/04 1630 AC 08/07 (Sodium Chloride 3% INH 0717 INH.neb) Sodium Chloride 1,000 ML CONT 08/04 1600 AC 08/07 (Sodium Chloride IV 0842 0.9%) Dose Instructions: (1)Heparin Sodium (Porcine) (HEP-LOCK *10*UNITS/ML IV D.SYR.PF): 50-200 UNITS (2)Heparin Sodium (Porcine) (HEP-LOCK *10*UNITS/ML IV D.SYR.PF): 50-200 UNITS (3)Sodium Chloride (Sodium Chloride 0.9% FLUSH D.SYR): 10-40 ML (4)Sodium Chloride (Sodium Chloride 0.9% FLUSH D.SYR): 10-40 ML Radiology Impressions: Recent Impressions (48H) RADIOLOGY - ABDOMEN OR KUB 08/05 1010 Report Impression - Status: SIGNED Entered: 08/05/2020 1048 IMPRESSION: Appropriate position of the enteric tube. Impression By: KOSTA CABRERA M.D. RADIOLOGY - ABDOMEN OR KUB 08/06 1215 Report Impression - Status: SIGNED Entered: 08/06/2020 1303 IMPRESSION: The enteric tube is in the proximal stomach with the tip extending superiorly. Impression By: JASON PATIÑO M.D. Lab Results: Lab 24hr (CBC/BMP Fishbone) 08/07/20 0450: [Embedded Image Not Available] Anion Gap 9, Est GFR ( Amer) Greater than 60, Est GFR (Non-Af Amer) Greater than 60 , BUN/Creatinine Ratio 26 H, Glucose 148 H, Total Calcium 7.6 L Assessment/Plan Assessment/Problem List: 1. Acute hypoxemic respiratory failure 70 y/o with PMHx of COPD, HFpEF, CVA, and Former Tobacco Abuse presented to [facility] emergency department on 07/27 secondary to Syncope and was admitted to telemetry. Our service was consulted on 08/04 secondary to Worsening Hypoxemia requiring HFNC. She is being transferred to the D-ICU. ASSESSMENT: - LLL Aspiration Pneumonia - Acute Hypoxemic Respiratory Failure 2/2 above - Nausea and Vomitting - TASHI 2/2 Dehydration - HFpEF (EF 60-65% per Echo 07/2020) - Tobacco Abuse, in Remission - Obesity - Hx of COPD (no PFTs on file) - Hx of CVA PLAN: - Currently oxygenating adequately on 40L/50% FiO2 via HFNC. Continue to wean with goal SpO2 88% and above - CXR 08/04 shows LLL aspiration pneumonia - d/c precedex gtt - No documented fevers. Mild leukocytosis. Urine Ag/SARS-CoV-2 negative. - c/w IV Unasyn (Day #4) for aspiration pneumonia - Abdominal X-ray ==> neg for ileus/obstruction - cont w NG today, likely transition to clears tomorrow - Continue scheduled and PRN Duonebs. Add Budesonide. Resume home Symbicort upon discharge. Recommend Complete PFTs as outpatient - Continue Incentive Spirometry. Add Acapella Flutter Valve and Hypertonic Saline Nebs for proper pulmonary toilet - improved renal function w fluids, cont w maintenance fluids - F/E/N: NS @ 125/replete lytes as needed /NPO - GI/DVT Prophylaxis: PO Pantoprazole/Lovenox - CODE STATUS: Full Code cc time 32 min Disclaimer This dictation was created using voice recognition software. Phonetic and/or minor grammatical errors may exist. eSign Date and Time Morris Alonso MD Verified/Reviewed by 08/07/20 0900 [facility] Progress Note-Adjuster And Inspector [facility] 08-07-2020 CHIROPRACTIC ASSISTANT Progress Note [facility] Speech/Language Pathology Inpatient Missed Visit Note Location: Bedside. Attempted to visit patient for therapy, but was unable for the following reasons: Attempted to see patient this date. Nursing reported patient delirious and not following commands. Not appropriate this date. Return Plan: Will return as soon as possible for another attempt. If there are any questions regarding this service, please contact the Acute Therapy Department at extension [phone] Signed by: LIZABETH Taylor 08/07/2020 09:09:47 [facility] PATIENT NAME: ANDRE BLANCA [facility] Dr. Andrea MEDICAL REC #: [id number] [place] [address] ADMIT DATE: 07/27/20 SERVICE DATE: 08/07/20 Speech-Language Progress Note ATTENDING PHY: Marta Horvath DO [facility] 08-06-2020 Anion gap [Moles/Vol] 5 mmol/L Normal 5-16 [facility] Comment on above: Order Comment: Maciel joe: Ramiro What is the source? URINE Performed By: #### M 150.97525, [id number] #### [facility] [address] [place] [address] Calcium [Mass/Vol] 8.3 mg/dL Low 8.5-10.5 [facility] Comment on above: Order Comment: Campu s: M What is the source? URINE Result Comment: NOTE NEW NORMAL RANGE DUE TO REAGENT CHANGE Performed By: #### M 150.24438, M150.95091 #### [facility] [address] [place] [address] Chloride [Moles/Vol] 108 mmol/L High 98-107 [facility] Comment on above: Order Comment: Campu s: M What is the source? URINE Performed By: #### M 150.76636, [id number] #### [facility] [address] [place] [address] CO2 [Moles/Vol] 28.0 mmol/L Normal 21-32 [facility] Comment on above: Order Comment: Campu s: M What is the source? URINE Performed By: #### M 150.31781, M150.76204 #### [facility] [address] [place] [address] Creatinine [Mass/Vol] 1.06 mg/dL High 0.510-0.950 [facility] Comment on above: Order Comment: Campu s: M What is the source? URINE Result Comment: Geraldine ents receiving either N-Acetylcysteine (NAC) or Metamizole prior to venipuncture, may have falsely depressed results. Performed By: #### M 150.93108, M150.78473 #### [facility] [address] [place] [address] Glucose [Mass/Vol] 109 mg/dL High 70-100 [facility] Comment on above: Order Comment: Campu s: M What is the source? URINE Result Comment: 70-1 00- Normal Fasting; 100-125 Impaired Fasting; greater than 126 on more than one result- Diabetes. ADA guidelines. Results may be falsely elevated after the administration of Sulfapyridine. Results may be falsely depressed after the administration of Sulfasalazine. Performed By: #### M 150.13014, M150.16897 #### [facility] [address] [place] [address] Potassium [Moles/Vol] 3.2 mmol/L Low 3.5-5.1 [facility] Comment on above: Order Comment: Campu s: M What is the source? URINE Performed By: #### M 150.49198, M150.40481 #### [facility] [address] [place] [address] Sodium [Moles/Vol] 141 mmol/L Normal 136-145 [facility] Comment on above: Order Comment: Campu s: M What is the source? URINE Performed By: #### M 150.57204, M150.37567 #### [facility] [address] [place] [address] Urea nitrogen [Mass/Vol] 36 mg/dL High - [facility] Comment on above: Order Comment: Campu s: M What is the source? URINE Performed By: #### M 150.60369, M150.20780 #### [facility] [place] [address] Urea nitrogen/Creatinine [Mass ratio] 34 mg/mg High 15-24 [facility] Comment on above: Order Comment: Campu s: M What is the source? URINE Performed By: #### M 150.18794, M150.02476 #### [facility] [address] [place] [address] GFR ESTon 08-06-2020 IF AMER Greater than 60 Normal [facility] Comment on above: Order Comment: Campu s: M What is the source? URINE Performed By: #### M 150.83793, M150.32915 #### [facility] [address] [place] [address] IF non-AFR AMER 51 Normal [facility] Comment on above: Order Comment: Maciel joe: Ramiro What is the source? URINE Performed By: #### M 150.56728, M150.11263 #### [facility] [address] [place] [address] PROG [facility] 08-06-2020 PROG [facility] Patient Name: ANDRE BLANCA [address] [facility] [address] Date of : [address] [place], [place] [address] Unit Number: [id number] Progress Note-Hospitalist Patient Status: ADM IN Attending Doctor: Marta Horvath DO Service Date: 08/06/201722 Chief Complaint Chief Complaint Syncope Patient is a 70-year-old female with past medical history significant for CVA, hypothyroidism, COPD not on home oxygen, recurrent syncopal episodes presented to [facility] after a syncopal episode. Patient also reported viral symptoms of diarrhea, shortness of breath, decreased appetite, headache, sore throat and myalgias. In ER, patient was found to be hypoxic with SPO2 of 85% on room air, placed on 2 L nasal cannula with SPO2: 94%. Chest x-ray revealed left lower lobe hazy opacity but when I reviewed it personally it does not show any obvious infiltrate. Patient was started on Rocephin, breathing treatments with DuoNeb. Orthostatics were positive and ordered compression hose. PT/OT recommended inpatient therapy, case management on board for discharge planning. Unfortunately on 08/03 patient had aspirated, became hypoxic and started on high flow nasal cannula. On 08/05, patient appeared confused. BMP revealed elevated creatinine of 4. Pulmonology was consulted and patient was transferred to ICU level of care for further management. Subjective S: (2 ROS minimum) Patient seen and examined today. Patient is more alert and appears comfortable today. Patient is sitting in a chair and still has NG tube with low intermittent suction. Objective (ROS) Nursing Vitals Vital Signs (Last) Result Date Time Pulse Ox 93 08/06 1600 B/P 145/86 08/06 1600 B/P Mean 112 08/06 1600 O2 Delivery HIGH FLOW NC 08/06 1600 O2 Flow Rate 40% 08/06 1600 Pulse 101 08/06 1600 Resp 35 08/06 1600 Temp 99.2 08/06 1300 Physical Exam Physical Examination Notes General: Pt is not in any acute distress HEENT: PERRL, no rhinorrhea, oral hygiene is good Neck: Supple, no lymphnode swelling or thyromegaly noticed Chest: S1, S2 present, regualr rate and rhythm, no murmurs, rub or gallop noticed Lungs: Clear to auscultation bilaterally, no wheeze or crackles noticed Abdomen: Soft, non distended, non tender, bowel sounds present Neurological: No deficits noticed Vascular: Peripheral pulses palpable and equal bilaterally Psychiatry: Normal mood Skin: No new skin lesions or rash noticed. Diagnostic Data: Lab 24hr (CBC/BMP Fishbone) 08/06/20 0749: [Embedded Image Not Available] Anion Gap 5, Est GFR ( Amer) Greater than 60, Est GFR (Non-Af Amer) 51, BUN/ Creatinine Ratio 34 H, Glucose 109 H, Total Calcium 8.3 L Assessment and Plan Conclusion 1. Acute hypoxemic respiratory failure 2. Pneumonia 3. Syncope 4. Hypothyroidism Assessment: Acute hypoxic respiratory failure secondary to pneumonia Left lower lobe pneumonia Aspiration pneumonia TASHI Syncope Hypothyroidism History of CVA Depression Bipolar disorder History of COPD Plan: -Patient is still on high flow nasal cannula. -Pulmonology on board. Started on budesonide, recommended complete PFTs as outpatient. Added acapella flutter valve and hypertonic saline nebs for proper pulmonary toilet. -Still has NG tube with low intermittent suction. -Creatinine has improved with IV fluids. -Continue IV Unasyn, day 3. -As patient has poor IV access, PICC line was placed on 08/06. -In addition to above, patient finished 5-day course of antibiotics with Rocephin for pneumonia. -Patient has positive orthostats noticed, it seems that patient is not eating well enough and that might be the reason why she is having syncope in addition to medication adverse effects. -Echocardiogram revealed diastolic dysfunction with EF of 60 to 65%. -We will continue home medications appropriately -PT recommended inpatient therapy, case management on board for discharge planning. Disclaimer This dictation was created using voice recognition software. Phonetic and/or minor grammatical errors may exist. eSign Date and Time Gloria Saxena MD Verified/Reviewed by 08/06/20 1727 Normal [facility] Progress Note-Hospitalist [facility] PROG.Rocael 08-06-2020 PROG.[facility] Patient Name: ANDRE BLANCA [address] Date of : [address] [place] [id number] Unit Number: [id number] Progress Note-Adjuster And Inspector Patient Status: ADM IN Attending Doctor: Marta Horvath DO Service Date: 08/06/20 1015 Progress Note-Adjuster And Inspector Subjective Subjective: MS better, but still confused breathing is better Objective Vital Signs: Vital Signs (Last) Result Date Time Pulse Ox 92 08/06 0700 B/P 117/57 08/06 0700 B/P Mean 82 08/06 0700 O2 Delivery HIGH FLOW NC 08/06 0700 O2 Flow Rate 35L 08/06 0700 Pulse 101 08/06 0700 Resp 28 08/06 0700 Temp 99.2 08/06 0000 IandO 24 Hour Summary 08/06 0000 Intake Total 6797 Output Total 2512 Balance 4285 Intake, IV 6797 Output, 1250 Gastric Drainage Output, Stool 0 Output, Urine 1262 Exam: more awake, still w some confusion RRR,nl s1/s2 course BS bilaterally R > L soft, nt, nd, + BS no LE edema Medications: Medications Current Sig/Antonella Start time Last Medication Dose Route Stop Time Status Admin Acetaminophen 500 MG Q6HPRN PRN 08/04 1930 AC 08/05 (TYLENOL ORAL LIQ) TUBE 9 Albuterol Sulfate 2.5 MG Q6HPRN PRN 07/28 0030 AC (VENTOLIN/PROVENTIL INH 2.5MG/3ML INH.NEB) Albuterol/Ipratropium 3 ML Q4HRT 08/04 2030 AC 08/06 (DUONEB 0.5-3 MG/3 INH 0819 ML INH.NEB) Albuterol/Ipratropium 3 ML Q2HPRN PRN 07/28 0100 AC (DUONEB 0.5-3 MG/3 INH ML INH.NEB) Ampicillin Sodium/ 3 GM Q12H@18 08/04 1800 AC 08/06 Sulbactam Sodium IV 08/11 1759 0638 (UNASYN VIAL) Sodium Chloride 100 ML (Sodium Chloride 0.9%) Budesonide 0.5 MG BID 08/04 2100 AC 08/06 (PULMOCORT 0.5MG/2ML INH 0819 INH.NEB) Buspirone HCl 20 MG TIDWM 08/05 0800 AC 08/06 (BUSPAR TAB) TUBE 0806 Carbamazepine 200 MG TIDWM 08/05 0800 AC 08/06 (TEGRETOL TAB) TUBE 0806 Clopidogrel Bisulfate 75 MG QDAY 08/05 0900 AC 08/06 (PLAVIX TAB) TUBE 0806 Enoxaparin Sodium 40 MG QDAY 07/28 0900 AC 08/06 (LOVENOX D.SYR) SC 0806 Esomeprazole 40 MG BIDAC 08/05 0700 AC 08/06 Magnesium TUBE 0639 (NEXIUM CAP (TXI)) Fluoxetine HCl 20 MG QDAY 08/05 0900 AC 08/06 (PROZAC CAP) TUBE 0806 Heparin Sodium See Dose Q24H 08/06 0900 AC 08/06 (Porcine) Insts (1) IV 0807 (HEP-LOCK *10*UNITS/ ML IV D.SYR.PF) Heparin Sodium See Dose PRN PRN 08/05 1500 AC (Porcine) Insts (2) IV (HEP-LOCK *10*UNITS/ ML IV D.SYR.PF) Levothyroxine Sodium 0.125 MG QDAYAC 08/05 0700 AC 08/06 (SYNTHROID TAB) TUBE 0641 Loperamide HCl 2 MG PRN PRN 08/04 1930 AC (IMODIUM AD ORAL TUBE LIQUID UDC) Melatonin 3 MG QHS 08/04 2200 AC 08/05 (MELATONIN TAB) TUBE 220 Menthol/Methyl 1 APPL BIDPRN PRN 07/28 0030 AC 07/29 Salicylate TP 221 (MIHIR ALVAREZ T.CREAM) Ondansetron HCl 4 MG BIDPRN PRN 08/04 1930 AC (ZOFRAN TAB) TUBE Ondansetron HCl 4 MG Q6HPRN PRN 07/27 2100 AC 08/04 (ZOFRAN VIAL) IV 2126 Pravastatin Sodium 40 MG QHS 08/04 2200 AC 08/05 (PRAVACHOL TAB) TUBE 2204 Pregabalin 150 MG BID 08/04 2100 AC 08/06 (LYRICA CAP) TUBE 0828 Promethazine HCl 6.25 MG Q6HPRN PRN 08/02 1830 AC 08/03 (PHENERGAN VIAL IV 1003 (TXI)) Sodium Chloride 50 ML (Sodium Chloride 0.9%) Sodium Chloride See Dose Q24H 08/06 0900 AC 08/06 (Sodium Chloride Insts (3) IV 0807 0.9% FLUSH D.SYR) Sodium Chloride See Dose PRN PRN 08/05 1500 AC (Sodium Chloride Insts (4) IV 0.9% FLUSH D.SYR) Sodium Chloride 4 ML QIDRT 08/04 1630 AC 08/06 (Sodium Chloride 3% INH 0819 INH.neb) Sodium Chloride 1,000 ML CONT 08/04 1600 AC 08/06 (Sodium Chloride IV 0642 0.9%) Dose Instructions: (1)Heparin Sodium (Porcine) (HEP-LOCK *10*UNITS/ML IV D.SYR.PF): 50-200 UNITS (2)Heparin Sodium (Porcine) (HEP-LOCK *10*UNITS/ML IV D.SYR.PF): 50-200 UNITS (3)Sodium Chloride (Sodium Chloride 0.9% FLUSH D.SYR): 10-40 ML (4)Sodium Chloride (Sodium Chloride 0.9% FLUSH D.SYR): 10-40 ML Radiology Impressions: Recent Impressions (48H) RADIOLOGY - ABDOMEN OR KUB 08/04 1702 Report Impression - Status: SIGNED Entered: 08/04/2020 1728 IMPRESSION: Limited study. The small amount of air is demonstrated in the colon. There is otherwise a paucity of bowel gas. Impression By: KOSTA CABRERA M.D. RADIOLOGY - ABDOMEN OR KUB 08/05 1010 Report Impression - Status: SIGNED Entered: 08/05/2020 1048 IMPRESSION: Appropriate position of the enteric tube. Impression By: KOSTA CABRERA M.D. Lab Results: Lab 24hr (CBC/BMP Fishbone) 08/06/20 0749: [Embedded Image Not Available] Anion Gap 5, Est GFR ( Amer) Greater than 60, Est GFR (Non-Af Amer) 51, BUN/ Creatinine Ratio 34 H, Glucose 109 H, Total Calcium 8.3 L 08/05/20 1535: [Embedded Image Not Available] Anion Gap 6, Est GFR ( Amer) 30, Est GFR (Non-Af Amer) 24, BUN/Creatinine Ratio 27 H, Glucose 132 H, Total Calcium 8.6, Phosphorus 3.50, Magnesium 1.8 Assessment/Plan Assessment/Problem List: 1. Acute hypoxemic respiratory failure 70 y/o with PMHx of COPD, HFpEF, CVA, and Former Tobacco Abuse presented to [facility] emergency department on 07/27 secondary to Syncope and was admitted to telemetry. Our service was consulted on 08/04 secondary to Worsening Hypoxemia requiring HFNC. She is being transferred to the D-ICU. ASSESSMENT: - LLL Aspiration Pneumonia - Acute Hypoxemic Respiratory Failure 2/2 above - Nausea and Vomitting - TASHI 2/2 Dehydration - HFpEF (EF 60-65% per Echo 07/2020) - Tobacco Abuse, in Remission - Obesity - Hx of COPD (no PFTs on file) - Hx of CVA PLAN: - Currently oxygenating adequately on 40L/50% FiO2 via HFNC. Continue to wean with goal SpO2 88% and above - CXR 08/04 shows LLL aspiration pneumonia - No documented fevers. Mild leukocytosis. Urine Ag/SARS-CoV-2 negative. - c/w IV Unasyn (Day #3) for aspiration pneumonia - Abdominal X-ray ==> neg for ileus/obstruction - cont w NG today - stool studies - Continue scheduled and PRN Duonebs. Add Budesonide. Resume home Symbicort upon discharge. Recommend Complete PFTs as outpatient - Continue Incentive Spirometry. Add Acapella Flutter Valve and Hypertonic Saline Nebs for proper pulmonary toilet - improved renal function w fluids, cont w maintenance fluids - F/E/N: NS @ 125/replete lytes as needed /NPO - GI/DVT Prophylaxis: PO Pantoprazole/Lovenox - CODE STATUS: Full Code cc time 32 min Disclaimer This dictation was created using voice recognition software. Phonetic and/or minor grammatical errors may exist. eSign Date and Time Morris Alonso MD Verified/Reviewed by 08/06/20 1017 Normal [facility] Progress Note-Adjuster And Inspector Normal [facility] BMPon 08-05-2020 Anion gap [Moles/Vol] 6 mmol/L Normal 5-16 [facility] Comment on above: Order Comment: Abundiou s: M Minimal Draw: Y Performed By: #### L 500.39031, L500.66838 #### [facility] [place] [address] Calcium [Mass/Vol] 8.6 mg/dL Normal 8.5-10.5 [facility] Comment on above: Order Comment: Campu s: M Minimal Draw: Y Result Comment: NOTE NEW NORMAL RANGE DUE TO REAGENT CHANGE Performed By: #### L 500.15696, L500.91028 #### [facility] [address] [place] [address] Chloride [Moles/Vol] 104 mmol/L Normal 98-107 [facility] Comment on above: Order Comment: Campu s: M Minimal Draw: Y Performed By: #### L 500.52857, L500.59820 #### [facility] [address] [place] [address] CO2 [Moles/Vol] 28.0 mmol/L Normal 21-32 [facility] Comment on above: Order Comment: Campu s: M Minimal Draw: Y Performed By: #### L 500.68780, L500.47040 #### [facility] [address] [place], [place] [address] Creatinine [Mass/Vol] 2.01 mg/dL High 0.510-0.950 [facility] Comment on above: Order Comment: Abundiou s: M Minimal Draw: Y Result Comment: Geraldine ents receiving either N-Acetylcysteine (NAC) or Metamizole prior to venipuncture, may have falsely depressed results. Performed By: #### L 500.48759, L500.11811 #### [facility] [address] [place] [address] Glucose [Mass/Vol] 132 mg/dL High 70-100 [facility] Comment on above: Order Comment: Maciel joe: Ramiro Minimal Draw: Y Result Comment: 70-1 00- Normal Fasting; 100-125 Impaired Fasting; greater than 126 on more than one result- Diabetes. ADA guidelines. Results may be falsely elevated after the administration of Sulfapyridine. Results may be falsely depressed after the administration of Sulfasalazine. Performed By: #### L 500.75262, L500.00071 #### [facility] [address] [place] [address] Potassium [Moles/Vol] 3.6 mmol/L Normal 3.5-5.1 [facility] Comment on above: Order Comment: Maciel joe: Ramiro Minimal Draw: Y Performed By: #### L 500.53161, L500.58313 #### [facility] [address] [place] [address] Sodium [Moles/Vol] 138 mmol/L Normal 136-145 [facility] Comment on above: Order Comment: Maciel s: M Minimal Draw: Y Performed By: #### L 500.68498, L500.55832 #### [facility] [address] [place] [address] Urea nitrogen [Mass/Vol] 54 mg/dL High 7-26 [facility] Comment on above: Order Comment: Maciel s: M Minimal Draw: Y Performed By: #### L 500.74409, L500.15734 #### [facility] [address] [place] [address] Urea nitrogen/Creatinine [Mass ratio] 27 mg/mg High 15-24 [facility] Comment on above: Order Comment: Maciel s: M Minimal Draw: Y Performed By: #### L 500.50840, L500.54088 #### [facility] [address] [place] [address] Anion gap [Moles/Vol] 8 mmol/L Normal 5-16 [facility] Comment on above: Order Comment: Campu s: M Performed By: #### L 200.00433 #### [facility] [address] [place] [address] Calcium [Mass/Vol] 9.1 mg/dL Normal 8.5-10.5 [facility] Comment on above: Order Comment: Campu s: M Result Comment: NOTE NEW NORMAL RANGE DUE TO REAGENT CHANGE Performed By: #### L 200.69561 #### [facility] [address] [place] [address] Chloride [Moles/Vol] 98 mmol/L Normal 98-107 [facility] Comment on above: Order Comment: Campu s: M Performed By: #### L 200.33257 #### [facility] [place] [address] CO2 [Moles/Vol] 28.0 mmol/L Normal 21-32 [facility] Comment on above: Order Comment: Campu s: M Performed By: #### L 200.48455 #### [facility] [place] [address] Creatinine [Mass/Vol] 3.19 mg/dL High 0.510-0.950 [facility] Comment on above: Order Comment: Campu s: M Result Comment: Geraldine ents receiving either N-Acetylcysteine (NAC) or Metamizole prior to venipuncture, may have falsely depressed results. Performed By: #### L 200.36857 #### [facility] [address] [place] [address] Glucose [Mass/Vol] 138 mg/dL High 70-100 [facility] Comment on above: Order Comment: Campu s: M Result Comment: 70-1 00- Normal Fasting; 100-125 Impaired Fasting; greater than 126 on more than one result- Diabetes. ADA guidelines. Results may be falsely elevated after the administration of Sulfapyridine. Results may be falsely depressed after the administration of Sulfasalazine. Performed By: #### L 200.27066 #### [facility] [address] [place] [address] Potassium [Moles/Vol] 3.9 mmol/L Normal 3.5-5.1 [facility] Comment on above: Order Comment: Campu s: M Result Comment: Slig ht Hemolysis, Result may be affected. Performed By: #### L 200.63315 #### [facility] [place] [address] Sodium [Moles/Vol] 134 mmol/L Low 136-145 [facility] Comment on above: Order Comment: Campu s: M Performed By: #### L 200.94038 #### [facility] [address] [place] [address] Urea nitrogen [Mass/Vol] 60 mg/dL High 7-26 [facility] Comment on above: Order Comment: Campu s: M Performed By: #### L 200.63484 #### [facility] [address] [place] [address] Urea nitrogen/Creatinine [Mass ratio] 19 mg/mg Normal 15-24 [facility] Comment on above: Order Comment: Campu s: M Performed By: #### L 200.54731 #### [facility] [address] [place], [place] [address] CBC W/DIFFon 08-05-2020 BASO ABS 0.10 K/CU MM Normal 0-0.2 [facility] Comment on above: Order Comment: Campu s: M What is the source? URINE Performed By: #### M 150.49566, M150.11595 #### [facility] [place] [address] Basophils/100 WBC (Bld) 0.4 % Normal 0-2 M [facility] Comment on above: Order Comment: Campu s: M What is the source? URINE Performed By: #### M 150.39011, M150.00280 #### [facility] [address] [place] [address] EOS ABS 0.10 K/CU MM Normal 0-0.5 [facility] Comment on above: Order Comment: Abundiou s: M What is the source? URINE Performed By: #### M 150.32954, M150.26451 #### [facility] [address] [place] [address] Eosinophils/100 WBC (Bld) 0.6 % Normal 0-5 [facility] Comment on above: Order Comment: Abundiou s: M What is the source? URINE Performed By: #### M 150.63890, M150.41742 #### [facility] [address] [place] [address] Erythrocyte distribution width (RBC) [Ratio] 14.2 % Normal 11-14.5 [facility] Comment on above: Order Comment: Abundiou s: M What is the source? URINE Performed By: #### M 150.54694, M150.88398 #### [facility] [address] [place] [address] Hematocrit (Bld) [Volume fraction] 35.6 % Normal 35.0-47.0 [facility] Comment on above: Order Comment: Abundiou s: M What is the source? URINE Performed By: #### M 150.95952, M150.21980 #### [facility] [address] [place] [address] Hemoglobin (Bld) [Mass/Vol] 11.6 g/dL Normal 11.5-15.5 [facility] Comment on above: Order Comment: Abundiou s: M What is the source? URINE Performed By: #### M 150.53163, M150.13040 #### [facility] [address] [place] [address] IMMATR GRAN ABS 0.10 K/CU MM Normal Less than 2 [facility] Comment on above: Order Comment: Campu s: M What is the source? URINE Performed By: #### M 150.31470, M150.28859 #### [facility] [address] [place] [address] IMMATURE GRAN % 0.4 % Normal Less than 2 [facility] Comment on above: Order Comment: Campu s: M What is the source? URINE Performed By: #### M 150.32712, M150.08936 #### [facility] [address] [place], [place] [address] Lymphocytes (Bld) [#/Vol] 1.20 K/CU MM Normal 0.9-4.4 [facility] Comment on above: Order Comment: Campu s: M What is the source? URINE Performed By: #### M 150.26057, M150.74038 #### [facility] [address] [place], [place] [address] Lymphocytes/100 WBC (Bld) 9.9 % Low 20-40 [facility] Comment on above: Order Comment: Campu s: M What is the source? URINE Performed By: #### M 150.38561, M150.40750 #### [facility] [address] [place] [address] MCHC (RBC) [Mass/Vol] 32.6 g/dL Normal 32.0-36.0 [facility] Comment on above: Order Comment: Campu s: M What is the source? URINE Performed By: #### M 150.47843, M150.69254 #### [facility] [address] [place] [address] MCV (RBC) [Entitic vol] 90.1 fL Normal 80.0-99.0 [facility] Comment on above: Order Comment: Campu s: M What is the source? URINE Performed By: #### M 150.94045, M150.50853 #### [facility] [address] [place] [address] MONO ABS 1.00 K/CU MM Normal 0.1-1.1 [facility] Comment on above: Order Comment: Campu s: M What is the source? URINE Performed By: #### M 150.73315, M150.38705 #### [facility] [address] [place], [place] [address] Monocytes/100 WBC (Bld) 8.2 % Normal 2-10 M [facility] Comment on above: Order Comment: Campu s: M What is the source? URINE Performed By: #### M 150.26614, M150.29313 #### [facility] [address] [place] [address] NEUTROPHIL ABS 9.40 K/CU MM High 2.0-8.3 [facility] Comment on above: Order Comment: Campu s: M What is the source? URINE Performed By: #### M 150.81150, M150.10427 #### [facility] [address] [place] [address] Neutrophils/100 WBC (Bld) 80.5 % High 45-75 [facility] Comment on above: Order Comment: Campu s: M What is the source? URINE Performed By: #### M 150.92290, M150.90482 #### [facility] [address] [place] [address] Nucleated RBC/100 WBC (Bld) [Ratio] 0.0 % Normal Less than 1 [facility] Comment on above: Order Comment: Campu s: M What is the source? URINE Performed By: #### M 150.92796, M150.04011 #### [facility] [place] [address] Platelet mean volume (Bld) [Entitic vol] 11.0 fL Normal 9.4-12.4 [facility] Comment on above: Order Comment: Campu s: M What is the source? URINE Performed By: #### M 150.37166, M150.54588 #### [facility] [address] [place] [address] Platelets (Bld) [#/Vol] 264 K/CU MM Normal 150-450 [facility] Comment on above: Order Comment: Campu s: M What is the source? URINE Performed By: #### M 150.28818, M150.13308 #### [facility] [place] [address] RBC (Bld) [#/Vol] 3.95 M/CU MM Normal 3.90-5.30 [facility] Comment on above: Order Comment: Campu s: M What is the source? URINE Performed By: #### M 150.97527, M150.42344 #### [facility] [address] [place] [address] WBC (Bld) [#/Vol] 11.7 K/CUMM High 4.5-11.0 [facility] Comment on above: Order Comment: Campu s: M What is the source? URINE Performed By: #### M 150.96692, M150.28977 #### [facility] [address] [place] [address] GFR ESTon 08-05-2020 IF AMER 30 [facility] Comment on above: Order Comment: Campu s: M Minimal Draw: Y Performed By: #### L 500.13440, L500.94589 #### [facility] [address] [place] [address] IF non-AFR AMER 24 [facility] Comment on above: Order Comment: Campu s: M Minimal Draw: Y Performed By: #### L 500.72657, L500.41229 #### [facility] [address] [place] [address] IF AMER 17 Normal [facility] Comment on above: Order Comment: Campu s: M Performed By: #### L 200.86826 #### [facility] [address] [place] [address] IF non-AFR AMER 14 Normal [facility] Comment on above: Order Comment: Campu s: M Performed By: #### L 200.47135 #### [facility] [address] [place] [address] MAGNESIUMon 08-05-2020 Magnesium [Mass/Vol] 1.8 MG/CL Normal 1.6-2.6 [facility] Comment on above: Order Comment: Campu s: M Performed By: #### L 200.56828 #### [facility] [address] [place] [address] OTPNon 08-05-2020 OT Progress Note Normal [facility] OTPN Occupational Therapy Inpatient Treatment Note Medical Diagnosis: Acute hypoxemic respiratory failure, Syncope, pneumonia, hypothyroidism OCCUPATIONAL PROFILE AND HISTORY Demographics: Age: 70Y Gender: Female Primary Language: Estonian Preferred Language: Estonian Referring Service/Team: Medicine Rehabilitation Precautions/Restrictio ns: monitor BP fall risk HFNC Bilateral wrist restraints NPO, NG tube bed/chair alarm Patient Report: "I want to take thsese off" in reference to wrist restraints. Pt oriented to person and place only. Patient/Caregiver Goals: None stated Pain: Patient currently without complaints of pain. OBJECTIVE / OCCUPATIONAL PERFORMANCE General Observation: Pt agreeable and nursing okay'd therapy. Pt Sp02 maintained > 94% during session. Activities of Daily Living: Current Status Previous Status ADLs Feeding - Independent Grooming - Supervision Bathing-UE - Supervision Bathing-LE - Minimal assistance Dressing-UE - Supervision Dressing-LE - Moderate assistance Toileting - Moderate assistance AM-PAC Daily Activities: Putting On/Taking Off Lower Body Clothing: A lot of help needed Bathing:: A lot of help needed Toileting: A lot of help needed Putting On/Taking Off Upper Body Clothing: A little help needed [facility] PATIENT NAME: ANDRE BLANCA [facility] Dr. Andrea MEDICAL REC #: [id number] [place] [address] ADMIT DATE: 07/27/20 SERVICE DATE: 08/05/20 Occupational Therapy Progress Note ATTENDING PHY: Marta Horvath DO Grooming: A little help needed Eating a Meal: Total assistance needed Raw Score = 13 , AM-PAC t-Scale Score = 32.03 and G-Code Modifier = CL Functional Mobility: Bed Mobility: All bed mobility including supine to sit, rolling, scooting. requiring minimal assistance. Pt reports min dizziness upon initial seated position Transfers: Patient transferred sit to/from stand requiring minimal assistance of 1 person. cueing for hand placement Locomotion/Gait/Ambula tion: Not assessed/applicable Interventions: Self Care/Home Management: Safety training during bed mobility and sit to stand transfers as described above; pt required constant cueing for safe hand placement during each ascent/descent and static and dynamic standing balance training to increase activity tolerance and safety during standing self care tasks. Pt able to stand each attempt x 3 for 1-2 minutes before report of fatigue. Pt also complete EOB grooming tasks with Min A to facilitate upright positioning and breathing during self care tasks. Pain Reassessment: No significant change in pain during session. Education: Education Provided: Precautions. Plan of care. Rehab techniques and procedures. purpose of OT eval Activities of daily living. Bed mobility. Functional transfers. Safety. Home exercise/activity plan. Audience: Patient. Mode: Explanation. Demonstration. Response: Verbalized understanding. Demonstrated skill. Needs practice. ASSESSMENT Response to Visit: Pt tolerated OT session fair. She is limited by decreased cognitive functioning, balance, activity tolerance and overall safety awareness at this time. Continue to recommend less intense skilled OT following acute stay. Activity/Participation Problem List and Goals: No updates at this time. Progress Toward Goals: TREATMENT GOAL REVIEW: 1. MOD I SELF CARE - Not Met: ongoing 2. MOD I FUNCTIONAL TRANSFERS - Not Met ongoing 3. MOD I FUNCTIONAL MOBILITY FOR GETTING AROUND THE HOUSE - Not Met ongoing 4. IMPROVED STRENGTH/PULMONARY ENDURANCE TO DO ADL PROJECTED WHILE MAINTAINING O2 SATS ABOVE 92 - Not Met ongoing 5. MOD I MIN CHALLENGE STANDING TASKS STANDING FOR UP TO [address] [facility] PATIENT NAME: ANDRE BLANCA [address] [facility] [address] Andrea MEDICAL REC #: [id number] [place] [address] ADMIT DATE: 07/27/20 SERVICE DATE: 08/05/20 Occupational Therapy Progress Note ATTENDING PHY: Marta Horvath DO W/ MINIMAL TO NO C/O DIZZINESS - Not Met ongoing 6. PT/FAMILY WILL BE INSTRUCTED IN D/C RECOMMENDATIONS,HOME SAFETY,ADAPTIVE TECHNIQUES/EQUIPMENT AND DEMO UNDERSTANDING FOR FOLLOW THROUGH - Not Met: ongoing Time frame to achieve treatment goal(s): 5x a wk until d/c PLAN Treatment Frequency, Duration and Interventions: Occupational Therapy is recommended for 5X A WK UNTIL D/C Occupational Therapy treatment is to include: ]ADL TRAINING, TRANSFER TRAINING, STANDING BALANCE/ENDURANCE TRAINING, FUNCTIONAL MOBILITY TRAINING, STRENGTHENING,GRADED THERAPEUTIC EXERCISES/ACTIVITIES,P T/FAMILY EDUCATION Recommended Occupational Therapy Follow Up: Upon acute care discharge, the following is currently recommended: Inpatient Occupational Therapy, LESS THAN 60 minutes per day. Equipment Recommended: TBD Recommended Consults: None currently. Development of Plan of Care: Patient participated in plan of care development today. If there are any questions regarding this service, please contact the Acute Therapy Department at extension [phone] Communication to Nursing: No updates at this time. Location of Patient at End of Therapy Session: In bed, bed alarm in place, call light within reach Services: Total Billed: 25 minutes (Timed: 25, Untimed: 0) 25.00 Timed: [74359] ADL-HOME MANAGEMENT EA 15 MIN 0.00 Untimed: [] OT Treatment General ORDER Signed by: ANNIE Bryant/Asuncion 08/05/2020 16:53:57 [facility] PATIENT NAME: ANDRE BLANCA [facility] Dr. Andrea MEDICAL REC #: [id number] [place] [address] ADMIT DATE: 07/27/20 SERVICE DATE: 08/05/20 Occupational Therapy Progress Note ATTENDING PHY: Marta Horvath DO Normal [facility] PHOSon 08-05-2020 Phosphate [Mass/Vol] 3.50 mg/dL Normal 2.5-4.9 [facility] Comment on above: Order Comment: Campu s: M Minimal Draw: Y Result Comment: Elev ated m-protein (paraprotein) levels in the serum may be exhibited in patients with monoclonal gammopathies, causing falsely elevated inorganic phosphorus results. Performed By: #### L 500.24958, L500.28530 #### [facility] [address] [place] [address]# [phone] PROG [facility] 08-05-2020 PROG [facility] Patient Name: ANDRE BLANCA [facility] Date of : [address] [address] Unit Number: [id number] Progress Note-Hospitalist Patient Status: ADM IN Attending Doctor: Marta Horvath DO Service Date: 08/05/20 1601 Chief Complaint Chief Complaint Syncope Patient is a 70-year-old female with past medical history significant for CVA, hypothyroidism, COPD not on home oxygen, recurrent syncopal episodes presented to [facility] after a syncopal episode. Patient also reported viral symptoms of diarrhea, shortness of breath, decreased appetite, headache, sore throat and myalgias. In ER, patient was found to be hypoxic with SPO2 of 85% on room air, placed on 2 L nasal cannula with SPO2: 94%. Chest x-ray revealed left lower lobe hazy opacity but when I reviewed it personally it does not show any obvious infiltrate. Patient was started on Rocephin, breathing treatments with DuoNeb. Orthostatics were positive and ordered compression hose. PT/OT recommended inpatient therapy, case management on board for discharge planning. Unfortunately on 08/03 patient had aspirated, became hypoxic and started on high flow nasal cannula. On 08/05, patient appeared confused. BMP revealed elevated creatinine of 4. Pulmonology was consulted and patient was transferred to ICU level of care for further care. Subjective S: (2 ROS minimum) Patient seen and examined today. Patient is confused and thinks that we are poisoning her with IV medications. Not able to comprehend about her medical status. Objective (ROS) Nursing Vitals Vital Signs (Last) Result Date Time Pulse Ox 98 08/05 1141 O2 Delivery HIGH FLOW NC 08/05 1141 O2 Flow Rate 35L 08/05 1141 B/P 105/60 08/05 0700 B/P Mean 77 08/05 0700 Pulse 92 08/05 0700 Resp 13 08/05 0700 Temp 98.6 08/05 0400 Physical Exam Physical Examination Notes General: Pt is confused HEENT: NG tube in place, on high flow nasal cannula Neck: Supple, no lymphnode swelling or thyromegaly noticed Chest: S1, S2 present, regualr rate and rhythm, no murmurs, rub or gallop noticed Lungs: Decreased breath sounds bilaterally, no wheeze or crackles noticed Abdomen: Soft, non distended, non tender, bowel sounds hypoactive Neurological: No deficits noticed Vascular: Peripheral pulses palpable and equal bilaterally Psychiatry: Normal mood Skin: No new skin lesions or rash noticed. Diagnostic Data: Lab 24hr (CBC/BMP [facility]) 08/05/20 1535: Sodium Pending, Potassium Pending, Chloride Pending, Carbon Dioxide Pending, Anion Gap Pending, BUN Pending, Creatinine Pending, BUN/Creatinine Ratio Pending, Glucose Pending, Total Calcium Pending, Phosphorus Pending, Magnesium Pending 08/05/20 0454: [Embedded Image Not Available] Anion Gap 8, Est GFR ( Amer) 17, Est GFR (Non-Af Amer) 14, BUN/Creatinine Ratio 19, Glucose 138 H, Total Calcium 9.1, RBC 3.95, MCV 90.1, MCHC 32.6, RDW 14.2, MPV 11.0, Immature Gran % (Auto) 0.4, Abs Immat Gran (auto) 0.10, Seg Neutrophils % 80.5 H, Lymphocytes % 9.9 L, Monocytes % 8.2, Eosinophils % 0.6, Basophils % 0.4, Neutrophils # 9.40 H, Lymphocytes # 1.20, Monocytes # 1.00, Eosinophils # 0.10, Basophils # 0.10, Nucleated RBCs 0.0 08/04/20 1719: Lactic Acid 1.14 08/04/20 1719: Amylase 56, Lipase 24 08/04/20 1622: Phosphorus 6.90 H, Magnesium 1.8 08/04/20 1622: Ionized Calcium 0.97 L Assessment and Plan Conclusion 1. Acute hypoxemic respiratory failure 2. Pneumonia 3. Syncope 4. Hypothyroidism Assessment: Acute hypoxic respiratory failure secondary to pneumonia Left lower lobe pneumonia Aspiration pneumonia TASHI Syncope Hypothyroidism History of CVA Depression Bipolar disorder History of COPD Plan: -Patient had aspirated last night and became hypoxic. Patient was started on high flow nasal cannula. -Pulmonology was consulted for further evaluation. Patient was transferred to ICU for further evaluation. -NG tube was placed. -BMP revealed elevated creatinine of >3, most likely secondary to dehydration. -Continue IV fluids. -Continue IV Unasyn, day 2. -As patient has poor IV access, PICC line was placed today. -In addition to above, patient finished 5-day course of antibiotics with Rocephin for pneumonia. -Patient has positive orthostats noticed, it seems that patient is not eating well enough and that might be the reason why she is having syncope in addition to medication adverse effects. -Echocardiogram revealed diastolic dysfunction with EF of 60 to 65%. -We will continue home medications appropriately -PT recommended inpatient therapy, case management on board for discharge planning. Disclaimer This dictation was created using voice recognition software. Phonetic and/or minor grammatical errors may exist. eSign Date and Time Gloria Saxena MD Verified/Reviewed by 08/05/[address] [facility] Progress Note-Hospitalist [facility] PROGZoran 08-05-2020 [facility] Patient Name: ANDRE BLANCA [address] [employer] Date of : [address] [id number] Unit Number: [id number] Progress Note-Adjuster And Inspector Patient Status: ADM IN Attending Doctor: Marta Horvath DO Service Date: 08/05/20946 Progress Note-Adjuster And Inspector Subjective Subjective: NG placed last evening, > 2 liters output still on high flow MS still compromised Objective Vital Signs: Vital Signs (Last) Result Date Time Pulse Ox 97 08/05 07 B/P 105/60 08/05 700 B/P Mean 77 08/05 700 O2 Delivery HIGH FLOW NC 08/05 700 O2 Flow Rate 35L 08/05 07 Pulse 92 08/05 0700 Resp 13 08/05 07 Temp 98.6 08/05 0400 IandO 24 Hour Summary 08/05 0000 Intake Total 300 Output Total 1610 Balance -1310 Intake, Oral 300 Number 1 Unmeasured Voids Output, 250 Emesis Output, 1100 Gastric Drainage Output, Stool 0 Output, Urine 260 Patient 234 lb Weight Exam: somnolent, confused, answers simple questions RRR,nl s1/s2 course BS bilaterally soft, nt, nd, + BS no LE edema Medications: Medications Current Sig/Antonella Start time Last Medication Dose Route Stop Time Status Admin Acetaminophen 500 MG Q6HPRN PRN 08/04 193 AC (TYLENOL ORAL LIQ) TUBE Albuterol Sulfate 2.5 MG Q6HPRN PRN 07/28 0030 AC (VENTOLIN/PROVENTIL INH 2.5MG/3ML INH.NEB) Albuterol/Ipratropium 3 ML Q4HRT 08/04 2030 AC 08/05 (DUONEB 0.5-3 MG/3 INH 0920 ML INH.NEB) Albuterol/Ipratropium 3 ML Q2HPRN PRN 07/28 0100 AC (DUONEB 0.5-3 MG/3 INH ML INH.NEB) Ampicillin Sodium/ 3 GM Q12H@18 08/04 1800 AC 08/05 Sulbactam Sodium IV 08/11 [id number] (UNASYN VIAL) Sodium Chloride 100 ML (Sodium Chloride 0.9%) Budesonide 0.5 MG BID 08/04 2100 AC 08/05 (PULMOCORT 0.5MG/2ML INH 0920 INH.NEB) Buspirone HCl 20 MG TIDWM 08/05 0800 AC (BUSPAR TAB) TUBE Carbamazepine 200 MG TIDWM 08/05 0800 AC (TEGRETOL TAB) TUBE Clopidogrel Bisulfate 75 MG QDAY 08/05 0900 AC (PLAVIX TAB) TUBE Enoxaparin Sodium 40 MG QDAY 07/28 0900 AC 08/04 (LOVENOX D.SYR) SC 0939 Esomeprazole 40 MG BIDAC 08/05 0700 AC Magnesium TUBE (NEXIUM CAP (TXI)) Fluoxetine HCl 20 MG QDAY 08/05 0900 AC (PROZAC CAP) TUBE Levothyroxine Sodium 0.125 MG QDAYAC 08/05 07 AC (SYNTHROID TAB) TUBE Loperamide HCl 2 MG PRN PRN 08/04 1930 AC (IMODIUM AD ORAL TUBE LIQUID UDC) Melatonin 3 MG QHS 08/04 2200 AC (MELATONIN TAB) TUBE Menthol/Methyl 1 APPL BIDPRN PRN 07/28 0030 AC 07/29 Salicylate TP 2217 (MIHIR ALVAREZ T.CREAM) Ondansetron HCl 4 MG BIDPRN PRN 08/04 1930 AC (ZOFRAN TAB) TUBE Ondansetron HCl 4 MG Q6HPRN PRN 07/27 2100 AC 08/04 (ZOFRAN VIAL) IV 2127 Pravastatin Sodium 40 MG QHS 08/04 2200 AC (PRAVACHOL TAB) TUBE Pregabalin 150 MG BID 08/04 2100 AC (LYRICA CAP) TUBE Promethazine HCl 6.25 MG Q6HPRN PRN 08/02 1830 AC 08/03 (PHENERGAN VIAL IV 1003 (TXI)) Sodium Chloride 50 ML (Sodium Chloride 0.9%) Sodium Chloride 1,000 ML ONCE ONE 08/05 0900 AC (Sodium Chloride IV 08/05 0959 0.9%) Sodium Chloride 4 ML QIDRT 08/04 1630 AC 08/05 (Sodium Chloride 3% INH 0921 INH.neb) Sodium Chloride 1,000 ML CONT 08/04 1600 AC 08/05 (Sodium Chloride IV 0357 0.9%) Radiology Impressions: Recent Impressions (48H) RADIOLOGY - ABDOMEN OR KUB 08/04 1702 Report Impression - Status: SIGNED Entered: 08/04/2020 1728 IMPRESSION: Limited study. The small amount of air is demonstrated in the colon. There is otherwise a paucity of bowel gas. Impression By: KOSTA CABRERA M.D. Lab Results: Lab 24hr (CBC/BMP Fishbone) 08/05/20 0454: [Embedded Image Not Available] Anion Gap 8, Est GFR ( Amer) 17, Est GFR (Non-Af Amer) 14, BUN/Creatinine Ratio 19, Glucose 138 H, Total Calcium 9.1, RBC 3.95, MCV 90.1, MCHC 32.6, RDW 14.2, MPV 11.0, Immature Gran % (Auto) 0.4, Abs Immat Gran (auto) 0.10, Seg Neutrophils % 80.5 H, Lymphocytes % 9.9 L, Monocytes % 8.2, Eosinophils % 0.6, Basophils % 0.4, Neutrophils # 9.40 H, Lymphocytes # 1.20, Monocytes # 1.00, Eosinophils # 0.10, Basophils # 0.10, Nucleated RBCs 0.0 08/04/20 1719: Lactic Acid 1.14 08/04/20 1719: Amylase 56, Lipase 24 08/04/20 1622: Phosphorus 6.90 H, Magnesium 1.8 08/04/20 1622: Ionized Calcium 0.97 L 08/04/20 1520: [Embedded Image Not Available] Anion Gap 11, Est GFR ( Amer) 12, Est GFR (Non-Af Amer) 10, BUN/Creatinine Ratio 13 L, Glucose 178 H, Total Calcium 8.8 08/04/20 1158: [Embedded Image Not Available] RBC 4.79, MCV 91.2, MCHC 32.0, RDW 14.1, MPV 11.0, Immature Gran % (Auto) 0.3, Abs Immat Gran (auto) 0.00, Seg Neutrophils % 85.0 H, Lymphocytes % 6.5 L, Monocytes % 6.9, Eosinophils % 0.9, Basophils % 0.4, Neutrophils # 10.90 H, Lymphocytes # 0.80 L, Monocytes # 0.90, Eosinophils # 0.10, Basophils # 0.10, Nucleated RBCs 0.0 Assessment/Plan Assessment/Problem List: 1. Acute hypoxemic respiratory failure 70 y/o with PMHx of COPD, HFpEF, CVA, and Former Tobacco Abuse presented to [facility] emergency department on 07/27 secondary to Syncope and was admitted to telemetry. Our service was consulted on 08/04 secondary to Worsening Hypoxemia requiring HFNC. She is being transferred to the D-ICU. ASSESSMENT: - LLL Aspiration Pneumonia - Acute Hypoxemic Respiratory Failure 2/2 above - Nausea and Vomitting - TASHI 2/2 Dehydration - HFpEF (EF 60-65% per Echo 07/2020) - Tobacco Abuse, in Remission - Obesity - Hx of COPD (no PFTs on file) - Hx of CVA PLAN: - Currently oxygenating adequately on 40L/50% FiO2 via HFNC. Continue to wean with goal SpO2 88% and above - CXR 08/04 shows LLL aspiration pneumonia - No documented fevers. Mild leukocytosis. Urine Ag/SARS-CoV-2 negative. - c/w IV Unasyn (Day #2) for aspiration pneumonia - Abdominal X-ray ==> neg for ileus/obstruction - cont w NG - stool studies pending - Continue scheduled and PRN Duonebs. Add Budesonide. Resume home Symbicort upon discharge. Recommend Complete PFTs as outpatient - Continue Incentive Spirometry. Add Acapella Flutter Valve and Hypertonic Saline Nebs for proper pulmonary toilet - improved renal function w fluids, another bolus today and cont w maintenance fluids - F/E/N: NS @ 125/Check Mag, Phos, Ionized Ca+/NPO - GI/DVT Prophylaxis: PO Pantoprazole/Lovenox - CODE STATUS: Full Code cc time 32 min Disclaimer This dictation was created using voice recognition software. Phonetic and/or minor grammatical errors may exist. eSign Date and Time Morris Alonso MD Verified/Reviewed by 08/05/20 0951 [facility] Progress Note-Adjuster And Inspector [facility] PTPNon 08-05-2020 PT Progress Note Normal [facility] PTPN Physical Therapy Inpatient Treatment Note Medical Diagnosis: 1. Acute hypoxemic respiratory failure 2. Syncope 3. Hypothyroidism Demographics: Age: 70Y Gender: Female Primary Language: Estonian Preferred Language: Estonian Rehabilitation Precautions/Restrictio ns: NG tube, wrist restraints, high flow O2 SUBJECTIVE Patient Report: ""I don't know" (when asked how she was feeling) Patient/Caregiver Goals: None stated Pain: Patient currently without complaints of pain. OBJECTIVE General Observation: Pt in bed,. pt on high flow O2 now. Pt w/ increased confusion from previous session. Functional Activities After Today's Session: Transfers: Patient transferred sit to/from stand requiring minimal assistance of 1 person. Cues for hand placement. Locomotion/Ambulation: Not assessed/applicable Stairs: Not assessed. Curb Negotiation: Not assessed. AM-PAC Basic Mobility: Turning Over in Bed: A little difficulty Sitting/Standing Chair with Arms: A little difficulty Lying on Back to Sitting on Side of Bed: A little difficulty Moving To/From Bed to Chair: A little help needed Walking in Hospital Room: A little help needed Climbing 3-5 Steps with Railing: A little help needed Raw Score = 18 , AM-PAC t-Scale Score = 43.63 and G-Code Modifier = CK Vital Signs: Not assessed. Interventions: Therapeutic Activities: Pt completed supine to sit with min A for trunk management. Pt completed sit to stand transfers x3 with min A. Pt required cues for hand placement each stand. Pt able to tolerate standing 1x2 minutes and 2x1 minutes with min A. Pt completed 10 reps of standing marches, heel raises, and [facility] PATIENT NAME: ANDRE BLANCA [facility] Dr. Andrea MEDICAL REC #: [id number] [place] [address] ADMIT DATE: 07/27/20 SERVICE DATE: 08/05/20 Physical Therapy Progress Note ATTENDING GIRISHY: Marta Horvath. Cues for technique. Pt required prolonged rest breaks between exercises due to fatigue. Pain Reassessment: No pain at onset or during treatment, which does not warrant reassessment. Education: Education Provided: Rehab techniques and procedures. transfers, exercises Audience: Patient. Mode: Explanation. Response: Needs reinforcement. ASSESSMENT Response to Visit: Pt with fair tolerance to PT session. Pt is limited by confusion. Pt continues to require hands on assist for all mobility. Continue to rec d/c <60 min/day for continued therapy. Activity/Participation Problem List and Goals: No updates at this time. Progress Toward Goals: TREATMENT GOAL REVIEW: 1. Pt transfer MOD I - Not Met: ongoing 2. Pt ambulate at least 50 feet WW MOD I - Not Met ongoing 3. Demo independence with LE thex for endurance and strengthening - Not Met ongoing Time frame to achieve treatment goal(s): 2 weeks PLAN Treatment Frequency, Duration and Interventions: Continue Physical Therapy to achieve goals per previously established Plan of Care. gait, transfes, endurance, balance, safety Recommended Physical Therapy Follow Up: Upon acute care discharge, the following is currently recommended: Inpatient Physical Therapy, LESS THAN 60 minutes per day. Recommended Equipment: None issued this visit. Recommended Consults: None currently. Development of Plan of Care: Patient participated in plan of care development today. If there are any questions regarding this service, please contact the Acute Therapy Department at extension [phone] Location of Patient at End of Therapy Session: In bed, bed alarm in place, call light within reach Services: Total Billed: 25 minutes (Timed: 25, Untimed: 0) [facility] PATIENT NAME: ANDRE BLANCA [facility] Dr. Andrea MEDICAL REC #: [id number] [place] [address] ADMIT DATE: 07/27/20 SERVICE DATE: 08/05/20 Physical Therapy Progress Note ATTENDING GIRISHY: Marta Horvath DO 25.00 Timed: [26443] THER ACTIVITIES / 15 MIN 0.00 Untimed: [] PT Treatment- General ORDER Signed by: Brianna Guy PT 08/05/2020 16:47:01 [facility] PATIENT NAME: ANDRE BLANCA Dr. Andrea MEDICAL REC #: [id number] [place] [address] ADMIT DATE: 07/27/20 SERVICE DATE: 08/05/20 Physical Therapy Progress Note ATTENDING PHY: Marta Horvath DO [facility] STPNon 08-05-2020 CHIROPRACTIC ASSISTANT Progress Note Normal [facility] Speech/Language Pathology Inpatient Missed Visit Note Location: Bedside. Attempted to visit patient for therapy, but was unable for the following reasons:Attempted to see patient this p.m. Patient getting PIC line placed. Spoke with nursing who reported ? aspiration. Patient currently with NG and documentation reported thick green bile draining. Return Plan: Will return as soon as possible for another attempt. If there are any questions regarding this service, please contact the Acute Therapy Department at extension [phone] Signed by: LIZABETH Taylor 08/05/2020 15:38:32 [facility] MEDICAL REC #: [id number] [place] [address] ADMIT DATE: 07/27/20 SERVICE DATE: 08/05/20 Speech-Language Progress Note ATTENDING PHY: Marta Horvath DO [facility] UR EOS SMEARon 08-05-2020 UR EOS SMEAR Normal NONE SEEN [facility] Comment on above: Order Comment: Campu s: MMinimal Draw: Y Result Comment: 0 EO SINOPHILS PER 25 WBCs Performed By: #### L 600.49996 ####[facility] [id number] [place], [place] [address]Gw# [phone] ABGPon 08-04-2020 ABG BE 4.8 MML/L High -2.0-2.0 [facility] Comment on above: Order Comment: Campu s: MPatient's Anticoagulant? UNKNOWN Performed By: #### L 100.48330 ####[facility] [id number] [place], [place] [address]Qy# [phone] ABG COHBA 1.0 % Normal 0-10 [facility] above: Order Comment: Campu s: MPatient's Anticoagulant? UNKNOWN Performed By: #### L 100.15120 ####[facility] [id number] [place], [place] [address]Ny# [phone] ABG HCO3 30.2 MMOL/L High 22- [facility] Comment on above: Order Comment: Campu s: MPatient's Anticoagulant? UNKNOWN Performed By: #### L 100.36004 ####[facility] [id number] [place], [place] [address]Pu# [phone] ABG MET 0.0 % Low 0.4-1.5 [facility] Comment on above: Order Comment: Campu s: MPatient's Anticoagulant? UNKNOWN Performed By: #### L 100.48178 ####[facility] [id number] [place], [place] [address]Sx# [phone] ABG O2 CAPACITY 20.1 mL/dL Normal [facility] Comment on above: Order Comment: Campu s: MPatient's Anticoagulant? UNKNOWN Performed By: #### L 100.20315 ####[facility] [id number] [place], [place] [address]Qi# [phone] ABG O2 CONTENT 17.0 mL/dL Normal 15.7-21.6 [facility] Comment on above: Order Comment: Campu s: MPatient's Anticoagulant? UNKNOWN Performed By: #### L 100.94630 ####[facility] [id number] [place], [place] [address]Eb# [phone] ABG O2HB SAT 83.0 % Critically low 90-100 [facility] Comment on above: Order Comment: Campu s: MPatient's Anticoagulant? UNKNOWN Result Comment: CRIT ICAL VALUE(S) VERIFIED AND CALLED TO [place] [address]/04/20 BY BEVERLEY FLORES Performed By: #### L 100.23885 ####[facility] [id number] [place], [place] [address]Lh# [phone] ABG PCO2 47.5 MMHG High 35-45 [facility] Comment on above: Order Comment: Campu s: MPatient's Anticoagulant? UNKNOWN Performed By: #### L 100.51122 ####[facility] [id number] [place], [place] [address]Cg# [phone] ABG PH 7.42 Normal 7.35-7.45 [facility] Comment on above: Order Comment: Campu s: MPatient's Anticoagulant? UNKNOWN Performed By: #### L 100.45509 ####[facility] [id number] [place], [place] [address]Ja# [phone] ABG PO2 49 MMHG Critically low 80-100 [facility] Comment on above: Order Comment: Campu s: MPatient's Anticoagulant? UNKNOWN Result Comment: CRIT ICAL VALUE(S) VERIFIED AND CALLED TO [place] [address]/04/20 BY BEVERLEY FLORES Performed By: #### L 100.41520 ####[facility] [id number] [place], [place] [address]Is# [phone] DOUG TEST Positive Normal [facility] Comment on above: Order Comment: Campu s: MPatient's Anticoagulant? UNKNOWN Performed By: #### L 100.73595 ####[facility] [id number] [place], [place] [address]Hd# [phone] aPTT Coag (Bld) [Time] 37.0 C Normal [facility] Comment on above: Order Comment: Campu s: MPatient's Anticoagulant? UNKNOWN Performed By: #### L 100.55561 ####[facility] [id number] [place], [place] [address]An# [phone] EQUIPMENT HIGH FLOW CANNULA Normal [facility] Comment on above: Order Comment: Campu s: MPatient's Anticoagulant? UNKNOWN Performed By: #### L 100.97927 ####[facility] [id number] [place] [address]Ky# [phone] Hemoglobin (Bld) [Mass/Vol] 16.0 % Critically high 0-5 [facility] Comment on above: Order Comment: Campu s: MPatient's Anticoagulant? UNKNOWN Performed By: #### L 100.93768 ####[facility] [id number] [place], [place] [address]Ii# [phone] Hemoglobin (Bld) [Mass/Vol] 14.6 g/dL Normal 10-16 [facility] Comment on above: Order Comment: Campu s: MPatient's Anticoagulant? UNKNOWN Performed By: #### L 100.28947 ####[facility] [id number] [place] [address]Eb# [phone] LITERFLOW 15.00 L/M Normal [facility] Comment on above: Order Comment: Campu s: MPatient's Anticoagulant? UNKNOWN Performed By: #### L 100.66997 ####[facility] [id number] [place] [address]Er# [phone] Oxygen saturation in Blood 84 % Normal [facility] Comment on above: Order Comment: Campu s: MPatient's Anticoagulant? UNKNOWN Performed By: #### L 100.35828 ####[facility] [id number] [place] [address]Ga# [phone] SAMPLE SITE L RADIAL Normal [facility] Comment on above: Order Comment: Campu s: MPatient's Anticoagulant? UNKNOWN Performed By: #### L 100.09725 ####[facility] [id number] [place], [place] [address]Um# [phone] SAMPLE TYPE ARTERIAL Normal [facility] Comment on above: Order Comment: Campu s: MPatient's Anticoagulant? UNKNOWN Performed By: #### L 100.54391 ####[facility] [id number] [place], [place] [address]Ar# [phone] AMYon 08-04-2020 STAR 56 U/L Normal 25-115 [facility] Comment on above: Order Comment: Campu s: M Performed By: #### L 500.13524, L500.42136 ####[facility] [id number] [place] [address]Ai# [phone] BMPon 08-04-2020 Anion gap [Moles/Vol] 11 mmol/L Normal 5-16 [facility] Comment on above: Order Comment: Campu s: MMinimal Draw: Y Performed By: #### L 500.16675, L500.17294 ####[facility] [id number] [place] [address]Lr# [phone] Calcium [Mass/Vol] 8.8 mg/dL Normal 8.5-10.5 [facility] Comment on above: Order Comment: Campu s: MMinimal Draw: Y Result Comment: NOTE NEW NORMAL RANGE DUE TO REAGENT CHANGE Performed By: #### L 500.14975, L500.85889 ####[facility] [id number] [place] [address]Or# [phone] Chloride [Moles/Vol] 90 mmol/L Low 98-107 [facility] Comment on above: Order Comment: Campu s: MMinimal Draw: Y Performed By: #### L 500.50661, L500.77613 ####[facility] [id number] [place] [address]Oj# [phone] CO2 [Moles/Vol] 29.0 mmol/L Normal 21-32 [facility] Comment on above: Order Comment: Campu s: MMinimal Draw: Y Performed By: #### L 500.91085, L500.79908 ####[facility] [id number] [place], [place] [address]Ex# [phone] Creatinine [Mass/Vol] 4.24 mg/dL High 0.510-0.950 [facility] Comment on above: Order Comment: Campu s: MMinimal Draw: Y Result Comment: Geraldine ents receiving either N-Acetylcysteine (NAC) or Metamizole prior to venipuncture, may have falsely depressed results. Performed By: #### L 500.96022, L500.23922 ####[facility] [id number] [place], [place] [address]Hv# [phone] Glucose [Mass/Vol] 178 mg/dL High 70-100 [facility] Comment on above: Order Comment: Campu s: MMinimal Draw: Y Result Comment: 70-1 00- Normal Fasting; 100-125 Impaired Fasting; greater than 126 on more than one result- Diabetes. ADA guidelines. Results may be falsely elevated after the administration of Sulfapyridine. Results may be falsely depressed after the administration of Sulfasalazine. Performed By: #### L 500.10648, L500.31316 ####[facility] [id number] [place], [place] [address]On# [phone] Potassium [Moles/Vol] 3.9 mmol/L Normal 3.5-5.1 [facility] Comment on above: Order Comment: Campu s: MMinimal Draw: Y Performed By: #### L 500.77606, L500.70515 ####[facility] [id number] [place], [place] [address]Mp# [phone] Sodium [Moles/Vol] 130 mmol/L Low 136-145 [facility] Comment on above: Order Comment: Campu s: MMinimal Draw: Y Performed By: #### L 500.81376, L500.06360 ####[facility] [id number] [place], [place] [address]Yy# [phone] Urea nitrogen [Mass/Vol] 54 mg/dL High 7-26 [facility] Comment on above: Order Comment: Campu s: MMinimal Draw: Y Performed By: #### L 500.01585, L500.54149 ####[facility] [id number] [place], [place] [address]Ds# [phone] Urea nitrogen/Creatinine [Mass ratio] 13 mg/mg Low 15-24 [facility] Comment on above: Order Comment: Campu s: MMinimal Draw: Y Performed By: #### L 500.79124, L500.83328 ####[facility] [id number] [place] [address]Yc# [phone] CBC W/DIFFon 08-04-2020 BASO ABS 0.10 K/CU MM Normal 0-0.2 [facility] Comment on above: Order Comment: Campu s: MMinimal Draw: Y Performed By: #### L 200.58534 ####[facility] [id number] [place] [address]Sf# [phone] Basophils/100 WBC (Bld) 0.4 % Normal 0-2 [facility] Comment [facility] above: Order Comment: Campu s: MMinimal Draw: Y Performed By: #### L 200.12655 ####[facility] [id number] [place] [address]Ch# [phone] EOS ABS 0.10 K/CU MM Normal 0-0.5 [facility] Comment on above: Order Comment: Campu s: MMinimal Draw: Y Performed By: #### L 200.45751 ####[facility] [id number] [place] [address]Rc# [phone] Eosinophils/100 WBC (Bld) 0.9 % Normal 0-5 [facility] Comment on above: Order Comment: Campu s: MMinimal Draw: Y Performed By: #### L 200.89737 ####[facility] [id number] [place] [address]Ri# [phone] Erythrocyte distribution width (RBC) [Ratio] 14.1 % Normal 11-14.5 [facility] Comment on above: Order Comment: Campu s: MMinimal Draw: Y Performed By: #### L 200.21361 ####[facility] [id number] [place], [place] [id number]# [phone] Hematocrit (Bld) [Volume fraction] 43.7 % Normal 35.0-47.0 [facility] Comment [facility] above: Order Comment: Campu s: MMinimal Draw: Y Performed By: #### L 200.03306 ####[place] [address]Ph# [phone] Hemoglobin (Bld) [Mass/Vol] 14.0 g/dL Normal 11.5-15.5 [facility] Comment on above: Order Comment: Campu s: MMinimal Draw: Y Performed By: #### L 200.61812 ####[place] [address]Ph# [phone] IMMATR GRAN ABS 0.00 K/CU MM Normal Less than 2 [facility] Comment on above: Order Comment: Campu s: MMinimal Draw: Y Performed By: #### L 200.44746 ####[place] [address]Ph# [phone] IMMATURE GRAN % 0.3 % Normal Less than 2 [facility] Comment on above: Order Comment: Campu s: MMinimal Draw: Y Performed By: #### L 200.58948 ####[facility] [id number] [place], [place] [id number]# [phone] Lymphocytes (Bld) [#/Vol] 0.80 K/CU MM Low 0.9-4.4 [facility] Comment on above: Order Comment: Campu s: MMinimal Draw: Y Performed By: #### L 200.49817 ####[facility] [id number] [place], [place] [id number]# [phone] Lymphocytes/100 WBC (Bld) 6.5 % Low 20-40 [facility] Comment on above: Order Comment: Campu s: MMinimal Draw: Y Performed By: #### L 200.57270 ####[facility] [id number] [place], [place] [address]Cl# [phone] MCHC (RBC) [Mass/Vol] 32.0 g/dL Normal 32.0-36.0 [facility] Comment on above: Order Comment: Campu s: MMinimal Draw: Y Performed By: #### L 200.00547 ####[facility] [id number] [place] [address]Qz# [phone] MCV (RBC) [Entitic vol] 91.2 fL Normal 80.0-99.0 [facility] Comment on above: Order Comment: Campu s: MMinimal Draw: Y Performed By: #### L 200.25272 ####[address] [address]Gv# [phone] MONO ABS 0.90 K/CU MM Normal 0.1-1.1 [facility] Comment on above: Order Comment: Campu s: MMinimal Draw: Y Performed By: #### L 200.54229 ####[facility] [id number] [place] [address]Kr# [phone] Monocytes/100 WBC (Bld) 6.9 % Normal 2-10 M [facility] Comment on above: Order Comment: Campu s: MMinimal Draw: Y Performed By: #### L 200.42296 ####[facility] [id number] [place] [address]Wv# [phone] NEUTROPHIL ABS 10.90 K/CU MM High 2.0-8.3 [facility] Comment on above: Order Comment: Campu s: MMinimal Draw: Y Performed By: #### L 200.81903 ####[facility] [id number] [place], [place] [address]Lq# [phone] Neutrophils/100 WBC (Bld) 85.0 % High 45-75 [facility] Comment on above: Order Comment: Campu s: MMinimal Draw: Y Performed By: #### L 200.18470 ####[facility] [id number] [place], [place] [address]Rh# [phone] Nucleated RBC/100 WBC (Bld) [Ratio] 0.0 % Normal Less than 1 [facility] Comment on above: Order Comment: Campu s: MMinimal Draw: Y Performed By: #### L 200.11709 ####[facility] [id number] [place] [address]Wc# [phone] Platelet mean volume (Bld) [Entitic vol] 11.0 fL Normal 9.4-12.4 [facility] Comment on above: Order Comment: Campu s: MMinimal Draw: Y Performed By: #### L 200.00184 ####[address] [address]Ak# [phone] Platelets (Bld) [#/Vol] 377 K/CU MM Normal 150-450 [facility] Comment on above: Order Comment: Campu s: MMinimal Draw: Y Performed By: #### L 200.38738 ####[address] [address]Ee# [phone] RBC (Bld) [#/Vol] 4.79 M/CU MM Normal 3.90-5.30 [facility] Comment on above: Order Comment: Campu s: MMinimal Draw: Y Performed By: #### L 200.28031 ####[facility] [id number] [place] [address]Sb# [phone] WBC (Bld) [#/Vol] 12.9 K/CUMM High 4.5-11.0 [facility] Comment on above: Order Comment: Campu s: MMinimal Draw: Y Performed By: #### L 200.73936 ####[facility] [id number] [place] [address]Jo# [phone] CONS.INTENon 08-04-2020 CONS.INTEN [facility] Patient Name: ANDRE BLANCA [address] [employer] [address] Date of : [address] [place] [address] Unit Number: [id number] Consultation-Intensivi Patient Status: ADM IN Attending Doctor: Marta Horvath DO Service Date: 08/04/20 5251 History of Present Illness Referring Physician Gloria Saxena MD Consulted Provider Morris Alonso MD Source of Information Patient Reason for Consult Acute Hypoxic Respiratory Failure History of Present Illness 70 y/o with PMHx of COPD, HFpEF, CVA, and Former Tobacco Abuse presented to [facility] emergency department on 07/27 secondary to Syncope and was admitted to telemetry. Our service was consulted on 08/04 secondary to worsening hypoxemia requiring HFNC. Per the HandP, the patient had a syncopal episode when she was standing up to use the restroom. She has been experiencing nausea, vomitting, and diarrhea as well. Apparently it was thought that she aspirated on her vomit in the last 24 hours. CXR 08/04 shows a LLL aspiration pneumonia. During my conversation with the patient, she is alert and oriented to person, place, and time. She tells me she came to the hospital yesterday because her breathing got worse. She states she has underlying COPD but does not use O2 at home. She uses Proventil and Symbicort at home. ABG 08/03 on 15L showed hypoxemia and chronic hypercapnia: 7.42/47.5/49/30.2. She does not wear a CPAP/BiPAP at home. She states she has never had a sleep study. She is a former smoker and quit 10-15 years ago. Past Medical/Surgical Hx Past Medical History Summary COPD (no PFTs on file) HFpEF (EF 60-65% per Echo 07/2020) CVA Hypothyroidism Chronic Knee Pain Fibromyalgia Irritable Bowel Syndrome Migraines Past Surgical History Summary Hysterectomy Right Arm Surgery Cholecystectomy Family/Social History Family History FATHER, , Age 60+. FH: emphysema Gangrene MOTHER, , Age 60+. FH: alcoholism Social Hx Lives home alone. Former smoker. Quit 10-15 years ago. Advance Directives Advance Directives Full Code Allergies/Home Medications Allergies Coded Allergies: BUTORPHANOL (01/17/13) IBUPROFEN (06/03/13) OXYCODONE (01/17/13) SALICYLAMIDE (UNSURE IF THIS IS AN ALLERGY 01/17/13) SULFA (SULFONAMIDE ANTIBIOTICS) (01/17/13) SUMATRIPTAN (01/17/13) XANTHINES (01/17/13) butorphanol tartrate (From STADOL) (06/03/13) hydrocodone bit (From VICODIN) (06/03/13) hydromorphone HCl (From DILAUDID) (06/03/13) ACETAMINOPHEN (From PERCOCET) (NAUSEA/VOMITING 06/21/13) ASPIRIN (HEART RACES/EARS RING 06/21/13) oxycodone HCl (From PERCOCET) (NAUSEA/VOMITING 06/21/13) prochlorperazine edisylate (From COMPAZINE) (SEVER HEAD PAIN, VOMITING 06/21/13) prochlorperazine maleate (From COMPAZINE) (SEVER HEAD PAIN, VOMITING 06/21/13) Home Medications Acetaminophen* (Tylenol 500MG Tab*) 500 MG TABLET 500 MG PO Q6HPRN PRN PAIN, Ref 0 ( Reported) Entered as Reported by GASTON URIBE on 04/16/171952 Last Action: Reviewed on 08/04/201617 by GLORIA SAXENA Albuterol Sulfate (Proair Hfa Inhaler) 8.5 GM HFA.AER.AD 1-2 PUFF INH QIDPRN PRN SHORTNESS OF BREATH, Ref 0 (Reported) Entered as Reported by GASTON URIBE on 04/16/171950 Last Action: Reviewed on 08/04/201617 by GLORIA SAXENA Amitriptyline HCl (Elavil) (Amitriptyline HCl 100MG Tab) 100 MG TAB 100 MG PO QHS #30 TAB, Ref 0 Prescribed by FEROZ LUNA on 02/26/19 Last Action: Reviewed on 08/04/201617 by GLORIA SAXENA Budesonide/Formoterol Fum (Symbicort 160/4.5 Mcg INH) 1 PUFF HFA.AER.AD 1 PUFF INH BID, Ref 0 (Reported) Entered as Reported by GASTON URIBE on 04/16/171949 Last Action: Reviewed on 08/04/201617 by GLORIA SAXENA busPIRone HCL* (Buspar 10MG Tab*) 10 MG TABLET 20 MG PO TIDWM, Ref 0 (Reported) Entered as Reported by GASTON URIBE on 04/16/171951 Last Action: Reviewed on 08/04/201617 by GLORIA SAXENA carBAMazepine* (Tegretol 200MG Tab*) 200 MG TABLET 200 MG PO TIDWM, Ref 0 (Reported) Entered as Reported by GASTON URIBE on 04/16/171949 Last Action: Reviewed on 08/04/201617 by GLORIA SAXENA Clopidogrel Bisulfate* (Plavix 75MG Tab*) 75 MG TABLET 75 MG PO QDAY, Ref 0 (Reported) Entered as Reported by GASTON URIBE on 04/16/171951 Last Action: Reviewed on 08/04/201617 by GLORIA SAXENA Fluoxetine HCl* (Prozac 20MG Cap*) 20 MG CAPSULE 20 MG PO QDAY, Ref 0 (Reported) Entered as Reported by GASTON URIBE on 04/16/171950 Last Action: Reviewed on 08/04/201617 by GLORIA SAXENA Levothyroxine Sodium* (Synthroid 0.125MG Tab*) 125 MCG TABLET 0.125 MG PO QDAYAC, Ref 0 (Reported) Entered as Reported by GASTON URIBE on 10/24/18 1319 Last Action: Reviewed on 08/04/201617 by GLORIA SAXENA Melatonin* (Melatonin Tab*) 3 MG TABLET 3 MG PO QHS, Ref 0 (Reported) Entered as Reported by GASTON URIBE on 10/24/18 1322 Last Action: Reviewed on 08/04/201617 by GLORIA SAXENA Methyl Salicylate/Menthol* (Bengay Greaseless Cream*) 57 GM CREAM..G. 1 APPL TP BIDPRN PRN PAIN, Ref 0 (Reported) APPLY TO NECK Entered as Reported by GASTON URIBE on 04/16/171949 Last Action: Reviewed on 08/04/201617 by GLORIA SAXENA Ondansetron HCl* (Zofran 4MG Tab*) 4 MG TABLET 4 MG PO BIDPRN PRN NAUSEA, Ref 0 ( Reported) Entered as Reported by GASTON URIBE on 10/24/181314 Last Action: Reviewed on 08/04/201617 by GLORIA SAXENA Pantoprazole* (Protonix 40MG Tab*) 40 MG TABLET.DR 40 MG PO BIDAC, Ref 0 (Reported) Entered as Reported by GASTON URIBE on 04/16/171950 Last Action: Reviewed on 08/04/201617 by GLORIA SAXENA Pravastatin Sodium* (Pravachol 40MG Tab*) 40 MG TABLET 40 MG PO QHS, Ref 0 (Reported) Entered as Reported by COSME GARCIA on 02/22/19 161 Last Action: Reviewed on 08/04/201617 by GLORIA SAXENA Pregabalin* (Lyrica Cap*) 150 MG CAPSULE 150 MG PO BID, Ref 0 (Reported) Entered as Reported by COSME GARCIA on 02/22/19 161 Last Action: Reviewed on 08/04/201617 by GLORIA SAXENA Risperidone* (Risperdal 3MG Tab*) 3 MG TABLET 3 MG PO BID, Ref 0 (Reported) Entered as Reported by COSME GARCIA on 02/22/19 161 Last Action: Reviewed on 08/04/201617 by GLORIA SAXENA Inpatient Medications Medications Current Sig/Antonella Start time Last Medication Dose Route Stop Time Status Admin Acetaminophen 500 MG Q6HPRN PRN 07/28 0030 AC 08/03 (TYLENOL TAB) PO 0847 Albuterol Sulfate 2.5 MG Q6HPRN PRN 07/28 0030 AC (VENTOLIN/PROVENTIL INH 2.5MG/3ML INH.NEB) Albuterol/Ipratropium 3 ML Q2HPRN PRN 07/28 0100 AC (DUONEB 0.5-3 MG/3 INH ML INH.NEB) Buspirone HCl 20 MG TIDWM 07/28 08 AC 08/04 (BUSPAR TAB) PO 1144 Carbamazepine 200 MG TIDWM 07/28 08 AC 08/04 (TEGRETOL TAB) PO 1144 Clopidogrel Bisulfate 75 MG QDAY 07/28 0900 AC 08/04 (PLAVIX TAB) PO 0938 Enoxaparin Sodium 40 MG QDAY 07/28 0900 AC 08/04 (LOVENOX D.SYR) SC 0939 Fluoxetine HCl 20 MG QDAY 07/28 0900 AC 08/04 (PROZAC CAP) PO 0939 Levothyroxine Sodium 0.125 MG QDAYAC 07/28 0700 AC 08/04 (SYNTHROID TAB) PO 0602 Loperamide HCl 2 MG PRN PRN 07/28 1200 AC 07/29 (IMODIUM CAP) PO 202 Melatonin 3 MG QHS 07/28 0100 AC 08/03 (MELATONIN TAB) PO 2004 Menthol/Methyl 1 APPL BIDPRN PRN 07/28 0030 AC 07/29 Salicylate TP 2217 (MIHIR ALVAREZ T.CREAM) Ondansetron HCl 4 MG BIDPRN PRN 07/28 0030 AC 08/03 (ZOFRAN TAB) PO 1616 Ondansetron HCl 4 MG Q6HPRN PRN 07/27 2100 AC 08/04 (ZOFRAN VIAL) IV 1505 Pantoprazole Sodium 40 MG BIDAC 07/28 0700 AC 08/04 (PROTONIX TAB) PO 1506 Pravastatin Sodium 40 MG QHS 07/28 0100 AC 08/03 (PRAVACHOL TAB) PO 2005 Pregabalin 150 MG BID 07/28 0900 AC 08/04 (LYRICA CAP) PO 0938 Promethazine HCl 6.25 MG Q6HPRN PRN 08/02 1830 AC 08/03 (PHENERGAN VIAL IV 1003 (TXI)) Sodium Chloride 50 ML (Sodium Chloride 0.9%) Review of Systems Constitutional Denies: Fever, Chills. EENT Reports: Dysphagia. Denies: Sore Throat. Cardiovascular Reports: Dyspnea on Exertion. Denies: Chest Pain, Palpitations, Leg Swelling. Pulmonary Reports: Cough, Sputum. Denies: Pleuritic Chest Pain, Dyspnea, Hemoptysis, Wheezing. Gastrointestinal Reports: Nausea, Vomiting, Diarrhea. Denies: Abdominal Pain. Genitourinary Denies: Dysuria, Hematuria. Musculoskeletal Denies: Joint Pain, Joint Swelling. Skin Denies: Calf Pain, Leg Pain. Lymphatic Denies: Ankle Swelling, Leg Swelling. Neuro Reports: Syncope. Denies: Headache. Psychiatric Denies: Depression, Anxiety. Physical Exam Vital Signs Vital Signs (Last) Result Date Time Pulse Ox 84 08/04 1136 B/P 121/75 08/04 1136 Temp 98.5 08/04 1136 Pulse 104 08/04 1136 Resp 15 08/04 1136 O2 Delivery HIGH FLOW NC 08/04 0915 O2 Flow Rate 60 08/04 0915 Vital Signs (24hr) Date Temp Pulse Resp B/P B/P Mean Pulse Ox FiO2 08/03-08/04 97.5-98.5 93-109 15-20 121-126/59-87 84-95 Physical Examination Summary General: AandO x3. Mildly tachypneic at rest HEENT: NCAT, PERRLA, mmm Neck: Supple, no rigidity. Trachea is midline Heart: HR regular, S1/S2, tachycardia. No murmur, gallop, or rub Lungs: Few scattered coarse breath sounds bilaterally Abdomen: Soft, ND/NT. BS present Extremities: No edema. +2 peripheral pulses bilaterally Neuro: Moves all extremities x4. No focal deficits Lab: Laboratory Tests (48hr) 08/04 08/04 1520 1158 Chemistry Sodium (136 - 145 MMOL/L) 130 L Potassium (3.5 - 5.1 MMOL/L) 3.9 Chloride (98 - 107 MMOL/L) 90 L Carbon Dioxide (21 - 32 MMOL/L) 29.0 Anion Gap (5 - 16 MMOL/L) 11 BUN (7 - 26 MG/DL) 54 H Creatinine (0.510 - 0.950 MG/DL) 4.24 H Est GFR ( Amer) 12 Est GFR (Non-Af Amer) 10 BUN/Creatinine Ratio (15 - 24) 13 L Glucose (70 - 100 MG/DL) 178 H Total Calcium (8.5 - 10.5 MG/DL) 8.8 Hematology WBC (4.5 - 11.0 K/CUMM) 12.9 H RBC (3.90 - 5.30 M/CU MM) 4.79 Hgb (11.5 - 15.5 G/DL) 14.0 Hct (35.0 - 47.0 %) 43.7 MCV (80.0 - 99.0 fl) 91.2 MCHC (32.0 - 36.0 GM/DL) 32.0 RDW (11 - 14.5) 14.1 Plt Count (150 - 450 K/CU MM) 377 MPV (9.4 - 12.4) 11.0 Immature Gran % (Auto) (Less than 2 %) 0.3 Abs Immat Gran (auto) (Less than 2 K/CU MM) 0.00 Seg Neutrophils % (45 - 75 %) 85.0 H Lymphocytes % (20 - 40 %) 6.5 L Monocytes % (2 - 10 %) 6.9 Eosinophils % (0 - 5 %) 0.9 Basophils % (0 - 2 %) 0.4 Neutrophils # (2.0 - 8.3 K/CU MM) 10.90 H Lymphocytes # (0.9 - 4.4 K/CU MM) 0.80 L Monocytes # (0.1 - 1.1 K/CU MM) 0.90 Eosinophils # (0 - 0.5 K/CU MM) 0.10 Basophils # (0 - 0.2 K/CU MM) 0.10 Nucleated RBCs (Less than 1 %) 0.0 08/03 0000 Blood Gas Specimen Type ARTERIAL Sample Site L RADIAL Patient Temperature (C) 37.0 pH (7.35 - 7.45) 7.42 pCO2 (35 - 45 MMHG) 47.5 H pO2 (80 - 100 MMHG) 49 *L HCO3 (22 - 26 MMOL/L) 30.2 H Base Excess (-2.0 - 2.0 MML/L) 4.8 H ABG O2 Sat (Measured) (90 - 100 %) 83.0 *L ABG Oximetry (%) 84 ABG O2 Content (15.7 - 21.6 mL/dL) 17.0 ABG Hemoglobin (10 - 16 GM/DL) 14.6 ABG Reduced Hgb (0 - 5 %) 16.0 *H ABG Carboxyhemoglobin (0 - 10 %) 1.0 ABG Methemoglobin (0.4 - 1.5 %) 0.0 L ABG O2 Capacity (mL/dL) 20.1 Doug Test POSITIVE Patient Equipment HIGH FLOW CANNULA Liter Flow (L/M) 15.00 Conclusion / Plan Conclusion/Plan 1. Acute hypoxemic respiratory failure 70 y/o with PMHx of COPD, HFpEF, CVA, and Former Tobacco Abuse presented to [facility] emergency department on 07/27 secondary to Syncope and was admitted to telemetry. Our service was consulted on 08/04 secondary to Worsening Hypoxemia requiring HFNC. She is being transferred to the D-ICU. ASSESSMENT: - LLL Aspiration Pneumonia - Acute Hypoxemic Respiratory Failure 2/2 above - Nausea and Vomitting - TASHI 2/2 Dehydration - HFpEF (EF 60-65% per Echo 07/2020) - Tobacco Abuse, in Remission - Obesity - Hx of COPD (no PFTs on file) - Hx of CVA PLAN: - Currently oxygenating adequately on 40L/50% FiO2 via HFNC. Continue to wean with goal SpO2 90% and above - CXR 08/04 shows LLL aspiration pneumonia - ABG 08/03 on 15L showed hypoxemia and chronic hypercapnia: 7.42/47.5/49/30.2. Will hold off on AVAPS for now given nausea and vomitting - No documented fevers. Mild leukocytosis. Urine Ag/SARS-CoV-2 negative. Start IV Unasyn ( Day #1) for suspected aspiration pneumonia - Check Abdominal X-ray and Stool PCR - Continue scheduled and PRN Duonebs. Add Budesonide. Resume home Symbicort upon discharge. Recommend Complete PFTs as outpatient - Continue Incentive Spirometry. Add Acapella Flutter Valve and Hypertonic Saline Nebs for proper pulmonary toilet - 2L NS bolus then start NS @ 125cc/hr given significantly worsening kidney function and hyponatremia - F/E/N: NS @ 125/Check Mag, Phos, Ionized Ca+/NPO - GI/DVT Prophylaxis: PO Pantoprazole/Lovenox - CODE STATUS: Full Code Seen and examined with Morris Alonso MD Disclaimer This dictation was created using voice recognition software. Phonetic and/or minor grammatical errors may exist. eSign Date and Time Sabrina Saha [employer] OPERATOR Verified/Reviewed by 08/05/20 0716 Morris Alonso MD [facility] Consultation-Intensivis t [facility] GFR ESTon 08-04-2020 IF AMER 12 [facility] Comment on above: Order Comment: Campu s: MMinimal Draw: Y Performed By: #### L 500.16488, L500.61766 ####[facility] [id number] [place], [place] [address]Xp# [phone] IF non-AFR AMER 10 Normal [facility] Comment on above: Order Comment: Abundiou s: MMinimal Draw: Y Performed By: #### L 500.07529, L500.14836 ####[facility] [id number] [place], [place] [address]Xy# [phone] IONIZED CAon 08-04-2020 IONIZED CA 0.97 MMOL/L Low 1.16-1.32 [facility] Comment on above: Order Comment: Campu s: M Performed By: #### L 550.69642 #### [facility] [address] [place] [address] LACTIC ACIDon 08-04-2020 Lactate [Moles/Vol] 1.14 mmol/L Normal 0.40-2.00 [facility] Comment on above: Order Comment: Campu s: M Performed By: #### L 200.32920 #### [facility] [address] [place] [address] LIPASEon 08-04-2020 Lipase [Catalytic activity/Vol] 24 U/L Normal 12-60 [facility] Comment on above: Order Comment: Campu s: M Result Comment: Slig ht Hemolysis, Result may be affected. NOTE NEW NORMAL RANGE DUE TO REAGENT CHANGE Performed By: #### L 500.19617, L500.95293 ####[facility] [id number] [place] [address]Vc# [phone] MAGNESIUMon 08-04-2020 Magnesium [Mass/Vol] 1.8 MG/CL Normal 1.6-2.6 [facility] Comment on above: Order Comment: Campu s: M Performed By: #### L 500.77359, L500.07059 ####[facility] [id number] [place], [place] [address]Qg# [phone] PHOSon 08-04-2020 Phosphate [Mass/Vol] 6.90 mg/dL High 2.5-4.9 [facility] Comment on above: Order Comment: Maciel s: M What is the source? URINE Result Comment: Elev ated m-protein (paraprotein) levels in the serum may be exhibited in patients with monoclonal gammopathies, causing falsely elevated inorganic phosphorus results. Performed By: #### M 150.97458, M150.51377 #### [facility] [address] [place] [address] PROG [facility] 08-04-2020 PROG [facility] Patient Name: ANDRE BLANCA [address] [facility] [address] Date of : [address] [address] Unit Number: [id number] Progress Note-Hospitalist Patient Status: ADM IN Attending Doctor: Marta Horvath DO Service Date: 08/04/201716 Chief Complaint Chief Complaint Syncope Patient is a 70-year-old female with past medical history significant for CVA, hypothyroidism, COPD not on home oxygen, recurrent syncopal episodes presented to [facility] after a syncopal episode. Patient also reported viral symptoms of diarrhea, shortness of breath, decreased appetite, headache, sore throat and myalgias. In ER, patient was found to be hypoxic with SPO2 of 85% on room air, placed on 2 L nasal cannula with SPO2: 94%. Chest x-ray revealed left lower lobe hazy opacity but when I reviewed it personally it does not show any obvious infiltrate. Patient was started on Rocephin, breathing treatments with DuoNeb. Orthostatics were positive and ordered compression hose. PT/OT recommended inpatient therapy, case management on board for discharge planning. Unfortunately on 08/03 patient had aspirated, became hypoxic and started on high flow nasal cannula. This morning, patient appeared mildly confused. BMP revealed elevated creatinine of 4. Pulmonology was consulted and patient was transferred to ICU level of care for further care. Subjective S: (2 ROS minimum) Patient seen and examined today. Patient appears mildly confused but aware of her surroundings and mention her name appropriately. In addition to above, patient is choking with fluids. Speech therapy was consulted and patient was made NPO. Objective (ROS) Nursing Vitals Vital Signs (Last) Result Date Time Pulse Ox 93 08/04 1501 B/P 121/82 08/04 1501 O2 Delivery HIGH FLOW NC 08/04 1501 Temp 98.2 08/04 1501 Pulse 97 08/04 1501 Resp 15 08/04 1501 O2 Flow Rate 60 08/04 0915 Physical Exam Physical Examination Notes General: Pt is not in any acute distress HEENT: PERRL, no rhinorrhea, oral hygiene is good Neck: Supple, no lymphnode swelling or thyromegaly noticed Chest: S1, S2 present, regualr rate and rhythm, no murmurs, rub or gallop noticed Lungs: Decreased breath sounds bilaterally, no wheeze or crackles noticed Abdomen: Soft, non distended, non tender, bowel sounds present Neurological: No deficits noticed Vascular: Peripheral pulses palpable and equal bilaterally Psychiatry: Normal mood Skin: No new skin lesions or rash noticed. Diagnostic Data: Lab 24hr (CBC/BMP [facility]) 08/04/20 1622: Phosphorus 6.90 H, Magnesium 1.8 08/04/20 1622: Ionized Calcium 0.97 L 08/04/20 1520: [Embedded Image Not Available] Anion Gap 11, Est GFR ( Amer) 12, Est GFR (Non-Af Amer) 10, BUN/Creatinine Ratio 13 L, Glucose 178 H, Total Calcium 8.8 08/04/20 1158: [Embedded Image Not Available] RBC 4.79, MCV 91.2, MCHC 32.0, RDW 14.1, MPV 11.0, Immature Gran % (Auto) 0.3, Abs Immat Gran (auto) 0.00, Seg Neutrophils % 85.0 H, Lymphocytes % 6.5 L, Monocytes % 6.9, Eosinophils % 0.9, Basophils % 0.4, Neutrophils # 10.90 H, Lymphocytes # 0.80 L, Monocytes # 0.90, Eosinophils # 0.10, Basophils # 0.10, Nucleated RBCs 0.0 Assessment and Plan Conclusion 1. Acute hypoxemic respiratory failure 2. Pneumonia 3. Syncope 4. Hypothyroidism Assessment: Acute hypoxic respiratory failure secondary to pneumonia Left lower lobe pneumonia Aspiration pneumonia TASHI Syncope Hypothyroidism History of CVA Depression Bipolar disorder History of COPD Plan: -Patient had aspirated last night and became hypoxic. Patient was started on high flow nasal cannula. -Pulmonology was consulted for further evaluation. They started the patient on IV Unasyn. Patient was transferred to ICU level of care for further evaluation. -BMP revealed elevated creatinine of 4, most likely secondary to dehydration. -We will start the patient on IV fluids NS at 75 cc/h and ordered urine eosinophils to rule out AIN. -In addition to above, patient finished 5-day course of antibiotics with Rocephin for pneumonia. -Patient has positive orthostats noticed, it seems that patient is not eating well enough and that might be the reason why she is having syncope in addition to medication adverse effects. -Echocardiogram revealed diastolic dysfunction with EF of 60 to 65%. -We will continue home medications Synthyroid, risperidone, amitriptyline, pregabalin, buspirone, pravastatin, Plavix, Tegretol -PT recommended inpatient therapy, case management on board for discharge planning. Disclaimer This dictation was created using voice recognition software. Phonetic and/or minor grammatical errors may exist. eSign Date and Time Gloria Saxena MD Verified/Reviewed by 08/04/20 1722 [facility] Progress Note-Hospitalist [facility] PTPNon 08-04-2020 PT Progress Note [facility] PTPN Physical Therapy Inpatient Treatment Note Medical Diagnosis: 1. Acute hypoxemia respiratory failure 2. Syncope 3. Hypothyroidism Demographics: Age: 70Y Gender: Female Primary Language: Estonian Preferred Language: Estonian Rehabilitation Precautions/Restrictio ns: monitor BP fall risk 02 to maintain stats SUBJECTIVE Patient Report: ""I don;t know" (when asked how she was feeling) Patient/Caregiver Goals: None stated Pain: Patient currently without complaints of pain. OBJECTIVE General Observation: Pt in bed,. pt on high flow O2 now. Pt w/ increased confusion from previous session. Functional Activities After Today's Session: Thex:semi reclined in bed x10-12 reps ea including AP, SAQ, HS, Hip abd/add. All AAROM w/ rest breaks. No SOB w/ thex. AM-PAC Basic Mobility: Turning Over in Bed: A little difficulty Sitting/Standing Chair with Arms: A lot of difficulty Lying on Back to Sitting on Side of Bed: A little difficulty Moving To/From Bed to Chair: A lot of help needed Walking in Hospital Room: A lot of help needed Climbing 3-5 Steps with Railing: A lot of help needed Raw Score = 14 , AM-PAC t-Scale Score = 38.10 and G-Code Modifier = CL Interventions: Therapeutic Exercise: (B) LE thex as outlined above. Limited by pt fatigue and confusion this pm. Pain Reassessment: No pain at onset or during treatment, which does not warrant reassessment. Education: No updates required at this time. ASSESSMENT [facility] PATIENT NAME: ANDRE BLANCA [address] [facility] [address] Andrea MEDICAL REC #: [id number] [place] [address] ADMIT DATE: 07/27/20 SERVICE DATE: 08/04/20 Physical Therapy Progress Note ATTENDING PHY: Marta Horvath DO Response to Visit: Limited by confusion and fatigue. Pt w/ increase in O2 demand. Remain unsafe for home. Activity/Participation Problem List and Goals: No updates at this time. Progress Toward Goals: TREATMENT GOAL REVIEW: 1. Pt transfer MOD I - Not Met: ONGOING 2. Pt ambulate at least 50 feet WW MOD I - Not Met ONGOING 3. Demo independence with LE thex for endurance and strengthening - Not Met ONGOING Time frame to achieve treatment goal(s): 2 weeks PLAN Treatment Frequency, Duration and Interventions: Continue Physical Therapy to achieve goals per previously established Plan of Care. gait, transfers, endurance, balance, safety Recommended Physical Therapy Follow Up: Upon acute care discharge, the following is currently recommended: Inpatient Physical Therapy, LESS THAN 60 minutes per day. Recommended Equipment: None issued this visit. Recommended Consults: None currently. Development of Plan of Care: There was no change to plan of care today. If there are any questions regarding this service, please contact the Acute Therapy Department at extension [phone] Location of Patient at End of Therapy Session: In bed, bed alarm in place, call light within reach Services: Total Billed: 17 minutes (Timed: 17, Untimed: 0) 17.00 Timed: [80852] THERAPEUTIC EXERCISE EA 15 MIN 0.00 Untimed: [] PT Treatment- General ORDER Signed by: RENALDO BENAVIDES PTA 08/04/2020 16:33:33 - CoSigned By: Brianna Guy, PT 08/04/2020 5:19:[address] [facility] PATIENT NAME: ANDRE BLANCA [facility] [address] Andrea MEDICAL REC #: [id number] [place] [address] ADMIT DATE: 07/27/20 SERVICE DATE: 08/04/20 Physical Therapy Progress Note ATTENDING GIRISHY: Marta Horvath [facility] 08-04-2020 CHIROPRACTIC ASSISTANT Assessment Report Normal [facility] Speech/Language Pathology Inpatient Clinical Swallow Evaluation Medical Diagnosis: Acute hypoxemic respiratory failure Therapy Diagnosis: Rank Code Description 1 R13.10 Dysphagia, unspecified Demographics: Age: 70Y Gender: Female Primary Language: Estonian Preferred Language: Estonian Referring Service/Team: Medicine Past Medical History: PMHx: Chronic COPD, Hx CVA prior without deficits but prior had L sided weakness, Hypothyroidism, Hx Migraines, Bipolar Disorder, IBS, Obesity. Past Surgical History Hysterectomy, appendectomy, right upper extremity surgery, cholecystectomy. History of Present Illness: Date of Onset: 08/04/2020 Additional Information: HandP on date of admission: Chief Complaint/Present Illness: Syncope History of Present Illness 70-year-old female, primary care through [facility], past medical history CVA, hypothyroidism, COPD not on home oxygen, recurrent syncopal episodes in the past that she states have been worked up by her physicians at the [facility], testing done at the [facility] and here at [facility], concluding that she has "low blood pressure". She does not feel like her syncopal episode correlate to any activity. Today she had a syncopal episode when she was standing up to go use the restroom. Over the last 5 to 6 days she has developed viral symptoms of diarrhea, shortness of breath, decreased appetite, headache, sore throat, myalgias. ED vitals temperature 98.1, heart rate 91, respiratory rate 22, blood pressure 127/66, SPO2 95% room air. However she did become hypoxic in the emergency department with SPO2 of 85% on room air. When I see the patient she is on 2 L of oxygen with SPO2 94%. ED work-up EKG which I personally reviewed shows normal sinus rhythm with right bundle branch block which is pre-existing. Chest x-ray shows a left lower lobe infiltrate. I personally reviewed the chest x-ray, there is no obvious lobular infiltrate. I saw the patient in ER room 37, she sitting up in bed, she is the historian and seems to be reliable historian. [facility] PATIENT NAME: ANDRE BLANCA [facility] Dr. Andrea MEDICAL REC #: [id number] [place] [address] ADMIT DATE: 07/27/20 SERVICE DATE: 08/04/20 Speech-Language Assessment Report ATTENDING DAMIAN: Marta Horvath DO 08/04/2020: recent chest xray indicates aspiration left lower lung Date of Admission: 07/27/2020 5:37:00 PM Medications and Allergies: Significant rehabilitation considerations: .Allergies: ACETAMINOPHEN, ASPIRIN, BUTORPHANOL, butorphanol tartrate, hydrocodone bit, hydromorphone HCl, IBUPROFEN, OXYCODONE, oxycodone HCl, prochlorperazine edisylate, prochlorperazine maleate, SALICYLAMIDE, SULFA (SULFONAMIDE ANTIBIOTICS), SUMATRIPTAN, XANTHINES Please see pt's chart for list of current medications Rehabilitation Precautions/Restrictio ns: monitor BP fall risk 02 to maintain sats SUBJECTIVE Premorbid Swallowing Function/Diet Textures: Regular diet consistency with thin liquids; question the pt's reporting due to confusion/poor historian. Current Diet Textures: Regular diet consistency with thin liquids Patient/Caregiver Goals: Patient's functional goals: Go home (from prior charting) Pain: Patient currently without complaints of pain. OBJECTIVE General Observations: Pt was awake and alert upon arrival to the room; sitting up in bed with a basin on her lap; pt reporting being nauseated. Information passed to nursing who reported that the pt reports this frequently; has not been eating much. This assessment was limited due to the refusing PO food Dentition:endentuous Condition of Oral Mucosa:DRY; pt asked to take several small sips of water to moisten the oral cavity prior to further PO trials. Cognitive Status: Impaired; confusion noted. Able to follow simple directions Respiratory Support: HIGH FLOW WITH 50 L @60% Oral Motor Exam: Labial and lingual ROM and strength were judged to be WFL Consistencies Tested: Thin Liquid. 4 trials presented. Presented via cup. Pharyngeal Phase Deficits: Pt demonstrated clinical s/s of aspiration after the swallow possibly due to the pt taking too large of a drink. On the other 3 trials, no clinical s/s of aspiration noted. . Pt refusing further PO trials due to not being hungry/nauseated [facility] PATIENT NAME: ANDRE BLANCA [facility] [address]. Andrea MEDICAL REC #: [id number] [place] [address] ADMIT DATE: 07/27/20 SERVICE DATE: 08/04/20 Speech-Language Assessment Report ATTENDING PHY: Marta Horvath DO Compensatory Strategies: Not tested. Interventions: None provided today. Pain Reassessment: No pain at onset or during treatment, which does not warrant reassessment. Education: Education not assessed/provided this session. ASSESSMENT Problem List: CURRENT RESPIRATORY STATUS - MAY LEND TO THE PATIENT HAVING DIFFICULTY COORDINATING BREATHING AND SWALLOWING. REDUCED COGNITIVE STATUS. LIMITED ASSESSMENT DUE TO THE PATIENT REFUSING PO. Strengths: Suspect normal swallowing function prior to hospitalization; one episode of aspiration with thin liquids - suspect due to taking too large of a sip Rehabilitation Potential: Good Motivation/Commitment to Therapy: Good. Recommended Diet: Regular diet. Thin liquids. Continue to recommend this diet consistency until the pt can be fully assessed Swallow Precautions/Recommenda tions: Upright position, Small bite/sip, Alert Response to Evaluation: FAIR response: limited assessment due to the pt refusing PO food trials due to not being hungry/nauseated. 1 clinical episode of aspiration after the swallow possibly due to the pt drinking too much NEXT THERAPY SESSION: fully assess swallowing function with PO trials of food Equipment Needed: None. Treatment Goals: Time frame to achieve treatment goal(s): 2 weeks 1. Pt will safely consume a regular diet with thin liquids 90-100% of the time without clinical s/s of aspiration or further decline in respiratory status during a meal or snack with CHIROPRACTIC ASSISTANT. PLAN Treatment Frequency, Duration and Interventions: Speech/Language Pathology services recommended for 5 times per week for 1 week Speech/Language Pathology treatment is to include: Reassessment of swallowing function; feeding training; pt education Recommended Speech/Language Pathology Therapy Follow Up: Upon acute care discharge, the following is currently recommended: Inpatient Speech Language Pathology LESS THAN 60 minutes/day Recommended Consults: None currently. Development of Plan of Care: Patient participated in plan of care development today. Unclear if the pt comprehended this POC [facility] PATIENT NAME: ANRDE BLANCA [facility] [address] Andrea MEDICAL REC #: [id number] [place] [address] ADMIT DATE: 07/27/20 SERVICE DATE: 08/04/20 Speech-Language Assessment Report ATTENDING PHY: Marta Horvath DO If there are any questions regarding this service, please contact the Acute Therapy Department at extension [phone] Communication to Nursing: No updates at this time. Location of Patient at End of Therapy Session: In bed, bed alarm in place, call light within reach Services: Total Billed: 45 minutes (Timed: 0, Untimed: 45) 45.00 Untimed: [71094] BDSIDE SWALLOW EVAL 0.00 Untimed: [] Speech Treatment ORDER Signed by: LIZABETH Jack 08/04/2020 11:27:19 [facility] PATIENT NAME: ANDRE BLANCA [address] [facility] [address] Andrea MEDICAL REC #: [id number] [place] [address] ADMIT DATE: 07/27/20 SERVICE DATE: 08/04/20 Speech-Language Assessment Report ATTENDING PHY: Marta Horvath DO Normal [facility] UA COMPLETEon 08-04-2020 Color (U) [place] Normal [facility] Comment on above: Order Comment: Abundiou s: M What is the source? URINE Performed By: #### M 150.27176, M150.81854 #### [facility] [place] [address] Glucose (U) [Mass/Vol] Negative Normal NORMAL [facility] Comment on above: Order Comment: Campu s: M What is the source? URINE Performed By: #### M 150.31427, M150.93651 #### [facility] [address] [place] [address] HYALINE CAST 38 /LPF High 0-1 [facility] Comment on above: Order Comment: Campu s: M What is the source? URINE Performed By: #### M 150.61274, M150.47479 #### [facility] [address] [place] [address] Mucus Ql (Urine sed) TRACE Normal NEGATIVE [facility] Comment on above: Order Comment: Campu s: M What is the source? URINE Performed By: #### M 150.75822, M150.98802 #### [facility] [address] [place] [address] SQUAMOUS EPIS 0 EPI/HPF Normal 0-5 [facility] Comment on above: Order Comment: Campu s: M What is the source? URINE Performed By: #### M 150.68623, M150.43599 #### [facility] [address] [place] [address] UA APPEARANCE Hazy Normal CLEAR [facility] Comment on above: Order Comment: Campu s: M What is the source? URINE Performed By: #### M 150.12267, M150.03229 #### [facility] [address] [place] [address] UA BACTERIA TRACE Normal NONE [facility] Comment on above: Order Comment: Campu s: M What is the source? URINE Performed By: #### M 150.55010, M150.90199 #### [facility] [address] [place] [address] UA BILIRUBIN Negative Normal NEGATIVE [facility] Comment on above: Order Comment: Campu s: M What is the source? URINE Performed By: #### M 150.51019, M150.61119 #### [facility] [address] [place] [address] UA BLOOD Negative Normal NEGATIVE [facility] Comment on above: Order Comment: Campu s: M What is the source? URINE Performed By: #### M 150.09534, M150.41745 #### [facility] [address] [place] [address] UA KETONE Negative Normal NEGATIVE [facility] Comment on above: Order Comment: Campu s: M What is the source? URINE Performed By: #### M 150.14539, M150.22154 #### [facility] [address] [place] [address] UA LK ESTERASE Negative Normal NEGATIVE [facility] Comment on above: Order Comment: Campu s: M What is the source? URINE Performed By: #### M 150.74130, M150.78636 #### [facility] [address] [place] [address] UA NITRITE Negative Normal NEGATIVE [facility] Comment on above: Order Comment: Campu s: M What is the source? URINE Performed By: #### M 150.13513, M150.53294 #### [facility] [address] [place] [address] UA PH 5.0 Normal 5-6 [facility] Comment on above: Order Comment: Campu s: M What is the source? URINE Performed By: #### M 150.98903, M150.84616 #### [facility] [address] [place] [address] UA PROTEIN 30 Normal NEGATIVE [facility] Comment on above: Order Comment: Campu s: M What is the source? URINE Performed By: #### M 150.05585, M150.77650 #### [facility] [place] [address] UA RBC 1 RBC/HPF Normal 0-3 [facility] Comment on above: Order Comment: Campu s: M What is the source? URINE Performed By: #### M 150.39398, M150.28016 #### [facility] [place] [address] UA SPEC GRAV 1.028 Normal 1.005-1.030 [facility] Comment on above: Order Comment: Campu s: M What is the source? URINE Performed By: #### M 150.07061, M150.57781 #### [facility] [address] [place] [address] UA UROBILINOGEN Negative Normal NORMAL [facility] Comment on above: Order Comment: Abundiou s: M What is the source? URINE Performed By: #### M 150.80878, M150.40439 #### [facility] [address] [place] [address] UA WBC 1 WBC/HPF Normal 0-5 [facility] Comment on above: Order Comment: Maciel s: M What is the source? URINE Performed By: #### M 150.86238, M150.12262 #### [facility] [address] [place] [address] OTPNon 08-03-2020 OT Progress Note Normal [facility] OTPN Occupational Therapy Inpatient Treatment Note Medical Diagnosis: Acute hypoxemic respiratory failure, Syncope, pneumonia, hypothyroidism OCCUPATIONAL PROFILE AND HISTORY Demographics: Age: 70Y Gender: Female Primary Language: Estonian Preferred Language: Estonian Referring Service/Team: Medicine Rehabilitation Precautions/Restrictio ns: monitor BP, fall risk, bed chair alarm Patient Report: Pt confused at times." I feel really nauseated Pt agreeable to work with therapy. Patient/Caregiver Goals: Go home Pain: Patient currently without complaints of pain. OBJECTIVE / OCCUPATIONAL PERFORMANCE General Observation: Pt lying in bed. Agreeable to get up to the chair with therapy. Increased fatifgue and shortness of breath with minimal activity. Activities of Daily Living: Current Status Previous Status ADLs Feeding - Independent Grooming Supervision Supervision Bathing-UE - Supervision Bathing-LE - Minimal assistance Dressing-UE - Supervision Dressing-LE - Moderate assistance Toileting - Moderate assistance AM-[facility] Daily Activities: Putting On/Taking Off Lower Body Clothing: A lot of help needed Bathing:: A little help needed Toileting: A lot of help needed Putting On/Taking Off Upper Body Clothing: A little help needed Grooming: A little help needed Eating a Meal: No help needed Raw Score = 17 , AM-PAC t-Scale Score = 37.26 and G-Code Modifier = CK Functional Mobility: Bed Mobility: All bed mobility including supine to sit, rolling, [facility] PATIENT NAME: ANDRE BLANCA [facility] [address] Andrea MEDICAL REC #: [id number] [place] [id number] ADMIT DATE: 07/27/20 SERVICE DATE: 08/03/20 Occupational Therapy Progress Note ATTENDING PHY: Marta Horvath DO scooting. requiring minimal assistance. Requires extra time. Verbal cues for safety. Assist with trunk. Min A at times for maintaining sitting balance. Pt losing sitting balance backwards and to R side. Verbal and physical cues for correcting sitting balance. Transfers: Patient transferred sit to/from stand requiring minimal assistance of 2 persons. No equipment was used. Verbal and physcial cues for hand placement and safety with FWW. Slow to rise Locomotion/Gait/Ambula tion: Patient was moderate assist with gait/ambulation of 2 persons for 4 steps to recliner. . Patient requires the following assistive device(s): Rolling walker. Pt with unsteady gait with cues for safety. Pt with increased fatigue. and shortness of breath. Interventions: Self Care/Home Management: bed mobility, dynamic/static sitting, Static/dynamic standing balance, functional transfers. Grooming task. Education on pursed lip breathing and energy conservation techniques. Pain Reassessment: No significant change in pain during session. Education: Education Provided: Precautions. Plan of care. Activities of daily living. Functional transfers. Bed mobility. Equipment. Safety. Audience: Patient. Mode: Explanation. Response: Verbalized understanding. Education Provided: Precautions. Plan of care. Activities of daily living. Functional transfers. Bed mobility. Equipment. Safety. Audience: Patient. Mode: Explanation. Response: Verbalized understanding. ASSESSMENT Response to Visit: Pt tolerated OT session at fair level. Pt continues to be limited at this time due to fatigue, weakness and SOB. Pt tolerated sitting EOB for 10 mintues with fair- balance, requiring min to mod assist for maintaining sitting balance for dynamic and static. Pt completed grooming task with supv set up . Cues for safety throughout. Pt would continue to benefit from OT at this time. Recommend LESS THAN 60 MIN Activity/Participation Problem List and Goals: No updates at this time. Progress Toward Goals: TREATMENT GOAL REVIEW: 1. MOD I SELF CARE - Not Met: ongoing 2. MOD I FUNCTIONAL TRANSFERS - Not Met ongoing 3. MOD I FUNCTIONAL MOBILITY FOR GETTING AROUND THE HOUSE - Not Met ongoing [facility] PATIENT NAME: ANDRE BLANCA [facility] [address] Andrea MEDICAL REC #: [id number] [place] [address] ADMIT DATE: 07/27/20 SERVICE DATE: 08/03/20 Occupational Therapy Progress Note ATTENDING PHY: Marta Horvath DO 4. IMPROVED STRENGTH/PULMONARY ENDURANCE TO DO ADL PROJECTED WHILE MAINTAINING O2 SATS ABOVE 92 - Not Met ongoing 5. MOD I MIN CHALLENGE STANDING TASKS STANDING FOR UP TO 10 MIN AT A TIME W/ MINIMAL TO NO C/O DIZZINESS - Not Met ongoing 6. PT/FAMILY WILL BE INSTRUCTED IN D/C RECOMMENDATIONS,HOME SAFETY,ADAPTIVE TECHNIQUES/EQUIPMENT AND DEMO UNDERSTANDING FOR FOLLOW THROUGH - Not Met: ongoing Time frame to achieve treatment goal(s): 5x a wk until d/c PLAN Treatment Frequency, Duration and Interventions: Continue Occupational Therapy to achieve goals per previously established Plan of Care. ]ADL TRAINING, TRANSFER TRAINING, STANDING BALANCE/ENDURANCE TRAINING, FUNCTIONAL MOBILITY TRAINING, STRENGTHENING,GRADED THERAPEUTIC EXERCISES/ACTIVITIES,P T/FAMILY EDUCATION Recommended Occupational Therapy Follow Up: Upon acute care discharge, the following is currently recommended: Inpatient Occupational Therapy, LESS THAN 60 minutes per day. Equipment Recommended: TBD- requesting w/c to be safer and not fall at home when having dizzy episodes Recommended Consults: None currently. Development of Plan of Care: There was no change to plan of care today. If there are any questions regarding this service, please contact the Acute Therapy Department at extension [phone] Communication to Nursing: No updates at this time. Location of Patient at End of Therapy Session: In chair, chair alarm in place, call light within reach Services: Total Billed: 25 minutes (Timed: 25, Untimed: 0) 25.00 Timed: [22120] ADL-HOME MANAGEMENT EA 15 MIN 0.00 Untimed: [] OT Treatment General ORDER Signed by: VASHTI Montejo, OTR/L 08/03/2020 14:41:25 [facility] MEDICAL REC #: [id number] [place] [address] ADMIT DATE: 07/27/20 SERVICE DATE: 08/03/20 Occupational Therapy Progress Note ATTENDING PHY: Marta Horvath DO Normal [facility]: ANDRE BLAN[facility] [address] Date of : [address] [place] [address] Unit Number: [id number] Progress Note-Hospitalist Patient Status: ADM IN Attending Doctor: Marta Horvath DO Service Date: 08/03/20 1728 Chief Complaint Chief Complaint Syncope Patient is a 70-year-old female with past medical history significant for CVA, hypothyroidism, COPD not on home oxygen, recurrent syncopal episodes presented to [facility] after a syncopal episode. Patient also reported viral symptoms of diarrhea, shortness of breath, decreased appetite, headache, sore throat and myalgias. In ER, patient was found to be hypoxic with SPO2 of 85% on room air, placed on 2 L nasal cannula with SPO2: 94%. Chest x-ray revealed left lower lobe hazy opacity but when I reviewed it personally it does not show any obvious infiltrate. Patient was started on Rocephin, breathing treatments with DuoNeb. Orthostatics were positive and ordered compression hose. PT/OT recommended inpatient therapy, case management on board for discharge planning. Subjective S: (2 ROS minimum) Patient seen and examined today. As per nursing, patient still has nausea but did not have any emesis today. Objective (ROS) Nursing Vitals Vital Signs (Last) Result Date Time Pulse Ox 91 08/03 1540 B/P 119/69 08/03 154 O2 Delivery NASAL CANNULA 08/03 1540 O2 Flow Rate 2 08/03 1540 Temp 97.6 08/03 1540 Pulse 100 08/03 1540 Resp 18 08/03 1540 Physical Exam Physical Examination Notes General: Pt is not in any acute distress HEENT: PERRL, no rhinorrhea, oral hygiene is good Neck: Supple, no lymphnode swelling or thyromegaly noticed Chest: S1, S2 present, regualr rate and rhythm, no murmurs, rub or gallop noticed Lungs: Clear to auscultation bilaterally, no wheeze or crackles noticed Abdomen: Soft, non distended, non tender, bowel sounds present Neurological: No deficits noticed Vascular: Peripheral pulses palpable and equal bilaterally Psychiatry: Normal mood Skin: No new skin lesions or rash noticed. Assessment and Plan Conclusion 1. Acute hypoxemic respiratory failure 2. Pneumonia 3. Syncope 4. Hypothyroidism Assessment: Acute hypoxic respiratory failure secondary to pneumonia Left lower lobe pneumonia Syncope Hypothyroidism History of CVA Depression Bipolar disorder History of COPD Plan: -Patient finished 5-day course of antibiotics with Rocephin for pneumonia. -Patient still on 3 L nasal cannula. Wean oxygen as able. -Patient has positive orthostats noticed, it seems that patient is not eating well enough and that might be the reason why she is having syncope in addition to medication adverse effects. -Echocardiogram revealed diastolic dysfunction with EF of 60 to 65%. -Recommend compression hose -We will continue home medications Synthyroid, risperidone, amitriptyline, pregabalin, buspirone, pravastatin, Plavix, Tegretol -PT recommended inpatient therapy, case management on board for discharge planning. Disposition: Most likely in 24 to 48 hours, to SNF. Disclaimer This dictation was created using voice recognition software. Phonetic and/or minor grammatical errors may exist. eSign Date and Time Gloira Saxena MD Verified/Reviewed by 08/03/20 1738 [facility] Progress Note-Hospitalist [facility] 08-03-2020 PT Progress Note [facility] PTPN Physical Therapy Inpatient Treatment Note Medical Diagnosis: 1. Acute hypoxemia respiratory failure 2. Syncope 3. Hypothyroidism Demographics: Age: 70Y Gender: Female Primary Language: Estonian Preferred Language: Estonian Rehabilitation Precautions/Restrictio ns: monitor BP fall risk SUBJECTIVE Patient Report: "I can't eat makes me want to throw up". Pt c/o nausea and dizziness. Patient/Caregiver Goals: Go home Pain: Patient currently without complaints of pain. OBJECTIVE General Observation: Pt in bed,. agreed to session, speech difficult to understand. Pt c/o dizziness and nausea. Pt willing to participate. Functional Activities After Today's Session: Transfers: Supine to sit w/ MIN A. Sitting balance at EOB for 10 minutes w/ occasional assist due to posterior LOB. Several trials sit<->stand w/ MIN A x 2 w/ repeated vc for hand placement. Static standing at ww x several trials w/ MIN A w/ LE"s buckling slightly and pt wanting to sit back into bed. Stand pivot. bed to bedside chair w/ MOD A and ww. Locomotion/Ambulation: Not assessed/applicable Thex:seated at EOB x 10-15 reps. ea. including AP, LAQ and marching all AROM w/ vc to slow pace and rest breaks as needed. AM-PAC Basic Mobility: Turning Over in Bed: A little difficulty Sitting/Standing Chair with Arms: A lot of difficulty Lying on Back to Sitting on Side of Bed: A little difficulty Moving To/From Bed to Chair: A lot of help needed Walking in Hospital Room: A lot of help needed Climbing 3-5 Steps with Railing: A lot of help needed Raw Score = 14 , AM-PAC t-Scale Score = 38.10 and G-Code Modifier = CL Vital Signs: SpO2 w/ O2 on. 92-93% Interventions: Therapeutic Activities: Bed mobility, sitting and standing balance, [facility] PATIENT NAME: ANDRE BLANCA [facility] Dr. Andrea MEDICAL REC #: [id number] [place] [address] ADMIT DATE: 07/27/20 SERVICE DATE: 08/03/20 Physical Therapy Progress Note ATTENDING PHY: Marta Horvath DO monitoring of SpO2. me thex. Pt education: discharge planning. pursed lip breathing and need to increase OOB activity. Pain Reassessment: No pain at onset or during treatment, which does not warrant reassessment. Education: Education Provided: Plan of care. Bed mobility. Functional transfers. Home exercise/activity plan. Audience: Patient. Mode: Explanation. Demonstration. Response: Needs practice. Needs reinforcement. ASSESSMENT Response to Visit: Pt tolerated session fairly w/ pt demonstrating decreased strength, balance, mobility and Endurance. Pt is a high fall risk and is unsafe for home. Pt educated on safety concerns w/ homegoing and recommendation for SNF. Activity/Participation Problem List and Goals: No updates at this time. Progress Toward Goals: TREATMENT GOAL REVIEW: 1. Pt transfer MOD I - Not Met: ONGOING 2. Pt ambulate at least 50 feet WW MOD I - Not Met ONGOING 3. Demo independence with LE thex for endurance and strengthening - Not Met ONGOING Time frame to achieve treatment goal(s): 2 weeks PLAN Treatment Frequency, Duration and Interventions: Continue Physical Therapy to achieve goals per previously established Plan of Care. gait, transfers, endurance, balance, safety Recommended Physical Therapy Follow Up: Upon acute care discharge, the following is currently recommended: Inpatient Physical Therapy, LESS THAN 60 minutes per day. Recommended Equipment: None issued this visit. Recommended Consults: None currently. Development of Plan of Care: There was no change to plan of care today. If there are any questions regarding this service, please contact the Acute Therapy Department at extension [phone] Location of Patient at End of Therapy Session: In chair, chair alarm in place, call light within reach Services: Total Billed: 28 minutes (Timed: 28, Untimed: 0) [facility] REC #: [id number] [place] [address] ADMIT DATE: 07/27/20 SERVICE DATE: 08/03/20 Physical Therapy Progress Note ATTENDING PHY: Marta Horvath DO 28.00 Timed: [54324] THER ACTIVITIES / 15 MIN 0.00 Untimed: [] PT Treatment- General ORDER Signed by: RENALDO BENAVIDES, TENTER 08/03/2020 14:47:11 - CoSigned By: Jason Toth PT, DPT 08/03/2020 2:48:[address] [facility] PATIENT NAME: ANDRE BLANCA [facility] Dr. Andrea MEDICAL REC #: [id number] [place] [address] ADMIT DATE: 07/27/20 SERVICE DATE: 08/03/20 Physical Therapy Progress Note ATTENDING PHY: Marta Horvath DO [facility] 08-02-2020 [facility] Patient Name: ANDRE BLANCA [facility] Date of : [address] [address] Unit Number: [id number] Progress Note-Hospitalist Patient Status: ADM IN Attending Doctor: Marta Horvath DO Service Date: 08/02/20 1517 Chief Complaint Chief Complaint Syncope Patient is a 70-year-old female with past medical history significant for CVA, hypothyroidism, COPD not on home oxygen, recurrent syncopal episodes presented to [facility] after a syncopal episode. Patient also reported viral symptoms of diarrhea, shortness of breath, decreased appetite, headache, sore throat and myalgias. In ER, patient was found to be hypoxic with SPO2 of 85% on room air, placed on 2 L nasal cannula with SPO2: 94%. Chest x-ray revealed left lower lobe hazy opacity but when I reviewed it personally it does not show any obvious infiltrate. Patient was started on Rocephin, breathing treatments with DuoNeb. Orthostatics were positive and ordered compression hose. PT/OT recommended inpatient therapy, case management on board for discharge planning. Subjective S: (2 ROS minimum) Patient seen and examined today. Patient denied nausea, vomiting. She is aware that she is going to correction, pending placement at this time. Objective (ROS) Nursing Vitals Vital Signs (Last) Result Date Time Pulse Ox 93 08/02 1145 B/P 107/70 08/02 1145 O2 Delivery NASAL CANNULA 08/02 1145 O2 Flow Rate 2 08/02 1145 Temp 97.6 08/02 1145 Pulse 95 08/02 1145 Resp 20 08/02 1145 Physical Exam Physical Examination Notes General: Pt is not in any acute distress HEENT: PERRL, no rhinorrhea, oral hygiene is good Neck: Supple, no lymphnode swelling or thyromegaly noticed Chest: S1, S2 present, regualr rate and rhythm, no murmurs, rub or gallop noticed Lungs: Clear to auscultation bilaterally, no wheeze or crackles noticed Abdomen: Soft, non distended, non tender, bowel sounds present Neurological: No deficits noticed Vascular: Peripheral pulses palpable and equal bilaterally Psychiatry: Normal mood Skin: No new skin lesions or rash noticed. Assessment and Plan Conclusion 1. Acute hypoxemic respiratory failure 2. Pneumonia 3. Syncope 4. Hypothyroidism Assessment: Acute hypoxic respiratory failure secondary to pneumonia Left lower lobe pneumonia Syncope Hypothyroidism History of CVA Depression Bipolar disorder History of COPD Plan: -Patient finished 5-day course of antibiotics with Rocephin for pneumonia. -Patient still on 3 L nasal cannula. Wean oxygen as able. -Patient has positive orthostats noticed, will adjust her medications at the time of discharge. -Echocardiogram revealed diastolic dysfunction with EF of 60 to 65%. -Recommend compression hose -We will continue home medications Synthyroid, risperidone, amitriptyline, pregabalin, buspirone, pravastatin, Plavix, Tegretol -PT recommended inpatient therapy, case management on board for discharge planning. Disposition: Most likely in 24 to 48 hours, to SNF. Disclaimer This dictation was created using voice recognition software. Phonetic and/or minor grammatical errors may exist. eSign Date and Time Gloria Saxena MD Verified/Reviewed by 08/02/20 1518 [facility] Progress Note-Hospitalist [facility] Patient Name: ANDRE BLANCA [address] Date of : [address] Unit Number: [id number] Progress Note-Hospitalist Patient Status: ADM IN Attending Doctor: Marta Horvath DO Service Date: 08/01/201756 Chief Complaint Chief Complaint Syncope Patient is a 70-year-old female with past medical history significant for CVA, hypothyroidism, COPD not on home oxygen, recurrent syncopal episodes presented to [facility] after a syncopal episode. Patient also reported viral symptoms of diarrhea, shortness of breath, decreased appetite, headache, sore throat and myalgias. In ER, patient was found to be hypoxic with SPO2 of 85% on room air, placed on 2 L nasal cannula with SPO2: 94%. Chest x-ray revealed left lower lobe hazy opacity but when I reviewed it personally it does not show any obvious infiltrate. Patient was started on Rocephin, breathing treatments with DuoNeb. Orthostatics were positive and ordered compression hose. PT/OT recommended inpatient therapy, case management on board for discharge planning. Subjective S: (2 ROS minimum) Patient seen and examined today. Patient had nausea and vomiting this morning. As per nursing, patient is not eating much. Objective (ROS) Nursing Vitals Vital Signs (Last) Result Date Time Pulse Ox 93 08/01 1551 B/P 117/55 08/01 1551 O2 Delivery NASAL CANNULA 08/01 155 O2 Flow Rate 3L 08/01 155 Temp 98.2 08/01 1551 Pulse 87 08/01 1551 Resp 20 08/01 1551 Physical Exam Physical Examination Notes General: Pt is not in any acute distress HEENT: PERRL, no rhinorrhea, oral hygiene is good Neck: Supple, no lymphnode swelling or thyromegaly noticed Chest: S1, S2 present, regualr rate and rhythm, no murmurs, rub or gallop noticed Lungs: Clear to auscultation bilaterally, no wheeze or crackles noticed Abdomen: Soft, non distended, non tender, bowel sounds present Neurological: No deficits noticed Vascular: Peripheral pulses palpable and equal bilaterally Psychiatry: Normal mood Skin: No new skin lesions or rash noticed. Assessment and Plan Conclusion 1. Acute hypoxemic respiratory failure 2. Pneumonia 3. Syncope 4. Hypothyroidism Assessment: Acute hypoxic respiratory failure secondary to pneumonia Left lower lobe pneumonia Syncope Hypothyroidism History of CVA Depression Bipolar disorder History of COPD Plan: -Continue Rocephin, day 5 and breathing treatments as scheduled and as needed -Patient still has cough with yellow-colored sputum production and on 3 L nasal cannula. Wean oxygen as able. -Patient has positive orthostats noticed, will adjust her medications at the time of discharge. -Echocardiogram revealed diastolic dysfunction with EF of 60 to 65%. -Recommend compression hose -We will continue home medications Synthyroid, risperidone, amitriptyline, pregabalin, buspirone, pravastatin, Plavix, Tegretol -PT recommended inpatient therapy, case management on board for discharge planning. Disposition: Most likely in 24 to 48 hours, to SNF. Disclaimer This dictation was created using voice recognition software. Phonetic and/or minor grammatical errors may exist. eSign Date and Time Gloria Saxena MD Verified/Reviewed by 08/01/20 1800 [facility] Progress Note-Hospitalist [facility] OTPNon 07-31-2020 OT Progress Note [facility] OTPN Occupational Therapy Inpatient Treatment Note Medical Diagnosis: 1. Acute hypoxemic respiratory failure 2. Syncope OCCUPATIONAL PROFILE AND HISTORY Demographics: Age: 70Y Gender: Female Primary Language: Estonian Preferred Language: Estonian Referring Service/Team: Medicine Rehabilitation Precautions/Restrictio ns: monitor BP fall risk Patient Report: Pt was pleasant and agreeable to therapy, some moderate confusion noted at times but pt was Ox 4. Pt attempting to wrap her call light in BP cuff upon arrival stating " this goes in here somehow but I dont know how" When asked if she knew what either of those items were used for she stated that she did not know. Patient/Caregiver Goals: Go home Pain: Patient currently without complaints of pain. OBJECTIVE / OCCUPATIONAL PERFORMANCE General Observation: Pt in chair upon arrival, pt was incontinent of bladder Activities of Daily Living: Current Status Previous Status ADLs Feeding - Independent Grooming - Supervision Bathing-UE - Supervision Bathing-LE - Minimal assistance Dressing-UE - Supervision Dressing-LE Moderate assistance Minimal assistance Toileting Moderate assistance Minimal assistance AM-PAC Daily Activities: Putting On/Taking Off Lower Body Clothing: A lot of help needed Bathing:: A lot of help needed Toileting: A lot of help needed [facility] PATIENT NAME: ANDRE BLANCA [facility] Dr. Andrea MEDICAL REC #: [id number] [place] [address] ADMIT DATE: 07/27/20 SERVICE DATE: 07/31/20 Occupational Therapy Progress Note ATTENDING PHY: Marta Horvath DO Putting On/Taking Off Upper Body Clothing: A little help needed Grooming: A little help needed Eating a Meal: No help needed Raw Score = 16 , AM-PAC t-Scale Score = 35.96 and G-Code Modifier = CK Functional Mobility: Bed Mobility: Not assessed. Transfers: Patient transferred sit to/from stand requiring moderate assistance of 1 person. Locomotion/Gait/Ambula tion: Not assessed/applicable Interventions: Self Care/Home Management: Pt WW safety and pursed lip breathing ed. Pt sit to stand to WW x 3 for kanwal care and LE dressing. Pt initially static standing x 1 minute at Max A level w/ multiple B LE buckling episodes noted, 1 uncontrolled LoB to chair. Pt completed 2 more stands for kanwal care and to manage clothing over hips. Pt standing better 2nd and 3rd stands w/ less buckling noted but still required mod/max A for standing balance. Pt standing x 2-3 minutes x 2 w/ multiple LoB. Pt was bale to assist w/ kanwal care and clothing management using unilateral support on WW w/ heavy assist for balance and pt required max VC's for sequencing and safety, Pt O2 was WNL. PoC ed Pain Reassessment: No significant change in pain during session. Education: Education Provided: Plan of care. Safety issues and interventions. Use of adaptive devices. Activities of daily living. Functional transfers. Breathing exercises. Audience: Patient. Mode: Explanation. Demonstration. Response: Needs reinforcement. Needs practice. No evidence of learning. ASSESSMENT Response to Visit: Pt tolerated fair to poor, pt demos fair overall strength. Poor standing balance and standing tolerance. pt is extremely unsteady in standing w/ multiple LoB d/t B LE buckling. Pt is a heavy hands on assist during standing and for all LE self care. Pt demos some decreased cognition and safety awareness and is a high fall risk, pt is not safe for home and does not have 24 hr supv. Pt is recommended for less than 60. Activity/Participation Problem List and Goals: No updates at this time. Progress Toward Goals: TREATMENT GOAL REVIEW: 1. MOD I SELF CARE - Not Met: Ongoing 2. MOD I FUNCTIONAL TRANSFERS - Not Met Ongoing 3. MOD I FUNCTIONAL MOBILITY FOR GETTING AROUND THE HOUSE - Not Met Ongoing 4. IMPROVED STRENGTH/PULMONARY ENDURANCE TO DO ADL PROJECTED WHILE [facility] PATIENT NAME: ANDRE BLANCA [address] [facility] [address] Andrea MEDICAL REC #: [id number] [place] [address] ADMIT DATE: 07/27/20 SERVICE DATE: 07/31/20 Occupational Therapy Progress Note ATTENDING PHY: Marta Horvath DO MAINTAINING O2 SATS ABOVE 92 - Not Met Ongoing 5. MOD I MIN CHALLENGE STANDING TASKS STANDING FOR UP TO 10 MIN AT A TIME W/ MINIMAL TO NO C/O DIZZINESS - Not Met Ongoing 6. PT/FAMILY WILL BE INSTRUCTED IN D/C RECOMMENDATIONS,HOME SAFETY,ADAPTIVE TECHNIQUES/EQUIPMENT AND DEMO UNDERSTANDING FOR FOLLOW THROUGH - Not Met: Ongoing Time frame to achieve treatment goal(s): 5x a wk until d/c PLAN Treatment Frequency, Duration and Interventions: Continue Occupational Therapy to achieve goals per previously established Plan of Care. ADL TRAINING, TRANSFER TRAINING, STANDING BALANCE/ENDURANCE TRAINING, FUNCTIONAL MOBILITY TRAINING, STRENGTHENING,GRADED THERAPEUTIC EXERCISES/ACTIVITIES,P T/FAMILY EDUCATION Recommended Occupational Therapy Follow Up: Upon acute care discharge, the following is currently recommended: Inpatient Occupational Therapy, LESS THAN 60 minutes per day. Equipment Recommended: TBD- requesting w/c to be safer and not fall at home when having dizzy episodes Recommended Consults: None currently. Development of Plan of Care: There was no change to plan of care today. If there are any questions regarding this service, please contact the Acute Therapy Department at extension [phone] Communication to Nursing: No updates at this time. Location of Patient at End of Therapy Session: In chair, call light within reach Services: Total Billed: 25 minutes (Timed: 25, Untimed: 0) 25.00 Timed: [33702] ADL-HOME MANAGEMENT EA 15 MIN 0.00 Untimed: [] OT Treatment General ORDER Signed by: SIMONA Olmstead 07/31/2020 15:41:11 - CoSigned By: VASHTI Montejo, OTR/L 07/31/2020 3:51:[address] [facility] PATIENT NAME: ANDRE BLANCA [facility] Dr. Andrea MEDICAL REC #: [id number] [place] [address] ADMIT DATE: 07/27/20 SERVICE DATE: 07/31/20 Occupational Therapy Progress Note ATTENDING PHY: Marta Horvath DO [facility] 07-31-2020 [facility] Patient Name: ANDRE BLANCA [facility] Date of : [address] [address] Unit Number: [id number] Progress Note-Hospitalist Patient Status: ADM IN Attending Doctor: Marta Horvath DO Service Date: 07/31/20 1550 Chief Complaint Chief Complaint Syncope Patient is a 70-year-old female with past medical history significant for CVA, hypothyroidism, COPD not on home oxygen, recurrent syncopal episodes presented to [facility] after a syncopal episode. Patient also reported viral symptoms of diarrhea, shortness of breath, decreased appetite, headache, sore throat and myalgias. In ER, patient was found to be hypoxic with SPO2 of 85% on room air, placed on 2 L nasal cannula with SPO2: 94%. Chest x-ray revealed left lower lobe hazy opacity but when I reviewed it personally it does not show any obvious infiltrate. Patient was started on Rocephin, breathing treatments with DuoNeb. Orthostatics were positive and ordered compression hose. PT/OT recommended inpatient therapy, case management on board for discharge planning. Subjective S: (2 ROS minimum) Patient seen and examined today. Patient reported her breathing is much better but she feels short of breath if she does not wear oxygen. Patient was never on oxygen at home. Objective (ROS) Nursing Vitals Vital Signs (Last) Result Date Time Pulse Ox 98 07/31 1220 B/P 105/54 07/31 1220 Temp 97.7 07/31 1220 Pulse 85 07/31 1220 Resp 20 07/31 1220 O2 Delivery NASAL CANNULA 07/31 1017 O2 Flow Rate 2 07/31 1017 Physical Exam Physical Examination Notes General: Pt is not in any acute distress HEENT: PERRL, no rhinorrhea, oral hygiene is good Neck: Supple, no lymphnode swelling or thyromegaly noticed Chest: S1, S2 present, regualr rate and rhythm, no murmurs, rub or gallop noticed Lungs: Clear to auscultation bilaterally, no wheeze or crackles noticed Abdomen: Soft, non distended, non tender, bowel sounds present Neurological: No deficits noticed Vascular: Peripheral pulses palpable and equal bilaterally Psychiatry: Normal mood Skin: No new skin lesions or rash noticed. Assessment and Plan Conclusion 1. Acute hypoxemic respiratory failure 2. Pneumonia 3. Syncope 4. Hypothyroidism Assessment: Acute hypoxic respiratory failure secondary to pneumonia Left lower lobe pneumonia Syncope Hypothyroidism History of CVA Depression Bipolar disorder History of COPD Plan: -Continue Rocephin, day 4 and breathing treatments as scheduled and as needed -Patient still has cough with yellow-colored sputum production and on 3 L nasal cannula. Wean oxygen as able. -Patient has positive orthostats noticed, will adjust her medications at the time of discharge. -Echocardiogram revealed diastolic dysfunction with EF of 60 to 65%. -Recommend compression hose -We will continue home medications Synthyroid, risperidone, amitriptyline, pregabalin, buspirone, pravastatin, Plavix, Tegretol -PT recommended inpatient therapy, case management on board for discharge planning. Disposition: Most likely in 24 to 48 hours, to SNF. Disclaimer This dictation was created using voice recognition software. Phonetic and/or minor grammatical errors may exist. eSign Date and Time Gloria Saxena MD Verified/Reviewed by 07/31/20 1552 [facility] Progress Note-Hospitalist [facility] PTPNon 07-31-2020 PT Progress Note [facility] PTPN Physical Therapy Inpatient Treatment Note Medical Diagnosis: 1. Acute hypoxemic respiratory failure 2. Syncope 3. Hypothyroidism Demographics: Age: 70Y Gender: Female Primary Language: Estonian Preferred Language: Estonian Rehabilitation Precautions/Restrictio ns: monitor BP fall risk SUBJECTIVE Patient Report: PATIENT SITTING UP IN BED UPON ARRIVAL. PATIENT AGREEABLE TO GETTING UP IN RECLINER AND PERFORMING SEATED THER EX. PATIENT REPORTING A 6/10 PAIN LEVEL OF RIGHT SHOULDER AND LEG. Patient/Caregiver Goals: Go home Pain: Patient currently has pain. Patient reports a pain level of 6 out of 10. Interventions: Repositioned patient. OBJECTIVE General Observation: PATIENT RESTING IN BED ON 4L OXYGEN VIA NC. Functional Activities After Today's Session: Transfers: Patient transferred sit to/from stand requiring moderate assistance of 1 person. Patient used the following equipment: Transfer belt. Patient transferred bed to chair to the left requiring moderate assistance of 1 person. Patient used the following equipment: Transfer belt. Rolling walker. Locomotion/Ambulation: Not assessed/applicable Stairs: Not assessed. Curb Negotiation: Not assessed. AM-PAC Basic Mobility: Turning Over in Bed: No difficulty Sitting/Standing Chair with Arms: A little difficulty Lying on Back to Sitting on Side of Bed: A little difficulty Moving To/From Bed to Chair: A little help needed Walking in Hospital Room: A lot of help needed Climbing 3-5 Steps with Railing: Total assistance needed Raw Score = 16 , AM-PAC t-Scale Score = 40.78 and G-Code Modifier = CK Vital Signs: Not assessed. [facility] PATIENT NAME: ANDRE BLANCA [facility] Dr. Andrea MEDICAL REC #: [id number] [place] [address] ADMIT DATE: 07/27/20 SERVICE DATE: 07/31/20 Physical Therapy Progress Note ATTENDING GIRISHY: Marta Horvath DO Interventions: Therapeutic Activities: SUPINE TO SIT W/ HOB ELEVATED AND USE OF BED RAIL, SBA SIT<->STAND, MOD (A) STAND PIVOT TRANSFER, HEAVY MOD (A) SECONDARY TO PATIENT W/ INCREASING DIZZINESS RESULTING IN LOB ON WAY TO CHAIR EDUCATION ON IMPORTANCE OF SITTING UP IN RECLINER AND PERFORMING LE THER EX FREQUENTLY THROUGHOUT THE DAY FOR IMPROVED LUNG FUNCTION AND DECREASED RISK OF COMPLICATIONS SUCH PRESSURE SORES AND DVT'S Therapeutic Exercise: YESENIA LE THER EX (PATIENT PROVIDED HANDOUT): AP'S, LAQ, MARCHES, HIP ADDUCTION WITH ROLLED TOWEL, HEEL SLIDES W/ TOWEL UNDER FOOT, HIP ABDUCTION -- 2 X 10 EACH Pain Reassessment: No significant change in pain during session. Education: Education Provided: Rehab techniques and procedures. PURPOSE OF PT TREATMENT Bed mobility. Functional transfers. Home exercise/activity plan. Audience: Patient. Mode: Explanation. Demonstration. Printed material provided. Response: Verbalized understanding. Needs practice. Needs reinforcement. ASSESSMENT Response to Visit: PATIENT TOLERATED SESSION FAIR. PATIENT REQUIRING HANDS ON ASSIST FOR FUNCTIONAL TRANSFERS SECONDARY TO DIZZINESS UPON STANDING RESULTING IN LOB. PATIENT DECLINED ATTEMPTING TO AMBULATE THIS SESSION SECONDARY TO FEAR OF FALLING DUE TO DIZZINESS. PATIENT IS AT A SIGNIFICANT RISK OF FALLING AT THIS TIME AND IS NOT SAFE TO RETURN HOME WITHOUT 24/7 CARE. RECOMMENDING SKILLED PT <60 MINUTES PER DAY UPON D/C FROM ACUTE CARE. Activity/Participation Problem List and Goals: No updates at this time. Progress Toward Goals: TREATMENT GOAL REVIEW: 1. Pt transfer MOD I - Not Met: ONGOING 2. Pt ambulate at least 50 feet WW MOD I - Not Met ONGOING 3. Demo independence with LE thex for endurance and strengthening - Not Met ONGOING Time frame to achieve treatment goal(s): 2 weeks PLAN Treatment Frequency, Duration and Interventions: Continue Physical Therapy to achieve goals per previously established Plan of Care. gait, transfes, endurance, balance, safety Recommended Physical Therapy Follow Up: Upon acute care discharge, the following is currently recommended: Inpatient Physical Therapy, LESS THAN [address] [facility] PATIENT NAME: ANDRE BLANCA Dr. Andrea MEDICAL REC #: [id number] [place] [address] ADMIT DATE: 07/27/20 SERVICE DATE: 07/31/20 Physical Therapy Progress Note ATTENDING PHY: Marta Horvath DO day. Recommended Equipment: None issued this visit. Recommended Consults: None currently. Development of Plan of Care: There was no change to plan of care today. If there are any questions regarding this service, please contact the Acute Therapy Department at extension [phone] Location of Patient at End of Therapy Session: In chair, call light within reach Services: Total Billed: 30 minutes (Timed: 30, Untimed: 0) 10.00 Timed: [00826] THER ACTIVITIES / 15 MIN 20.00 Timed: [25016] THERAPEUTIC EXERCISE EA 15 MIN 0.00 Untimed: [] PT Treatment- General ORDER Signed by: Kiki Cheung PT 07/31/2020 15:34:50 [facility] PATIENT NAME: ANDRE BLANCA [address] Andrea MEDICAL REC #: [id number] [place] [address] ADMIT DATE: 07/27/20 SERVICE DATE: 07/31/20 Physical Therapy Progress Note ATTENDING PHY: Marta Horvath DO Normal [facility] 07-30-2020 Anion gap [Moles/Vol] 5 mmol/L Normal 5-16 [facility] Comment on above: Order Comment: Abundiou s: M Minimal Draw: Y Performed By: #### L 500.34906, L500.63835 #### [facility] [address] [place] [address] Calcium [Mass/Vol] 9.2 mg/dL Normal 8.5-10.5 [facility] Comment on above: Order Comment: Campu s: M Minimal Draw: Y Result Comment: NOTE NEW NORMAL RANGE DUE TO REAGENT CHANGE Performed By: #### L 500.66898, L500.19736 #### [facility] [address] [place] [address] Chloride [Moles/Vol] 105 mmol/L Normal 98-107 [facility] Comment on above: Order Comment: Abundiou s: M Minimal Draw: Y Performed By: #### L 500.35654, L500.22945 #### [facility] [address] [place] [address] CO2 [Moles/Vol] 30.0 mmol/L Normal 21-32 [facility] Comment on above: Order Comment: Abundiou s: M Minimal Draw: Y Performed By: #### L 500.25375, L500.85565 #### [facility] [address] [place] [address] Creatinine [Mass/Vol] 0.94 mg/dL Normal 0.510-0.950 [facility] Comment on above: Order Comment: Abundiou s: M Minimal Draw: Y Result Comment: Geraldine ents receiving either N-Acetylcysteine (NAC) or Metamizole prior to venipuncture, may have falsely depressed results. Performed By: #### L 500.02844, L500.72646 #### [facility] [address] [place], [place] [id number] Glucose [Mass/Vol] 136 mg/dL High 70-100 [facility] Comment on above: Order Comment: Abundiou s: M Minimal Draw: Y Result Comment: 70-1 00- Normal Fasting; 100-125 Impaired Fasting; greater than 126 on more than one result- Diabetes. ADA guidelines. Results may be falsely elevated after the administration of Sulfapyridine. Results may be falsely depressed after the administration of Sulfasalazine. Performed By: #### L 500.49152, L500.40072 #### [facility] [address] [place] [address] Potassium [Moles/Vol] 3.8 mmol/L Normal 3.5-5.1 [facility] Comment on above: Order Comment: Campu s: M Minimal Draw: Y Result Comment: Slig ht Hemolysis, Result may be affected. Performed By: #### L 500.59640, L500.12714 #### [facility] [address] [place] [address] Sodium [Moles/Vol] 140 mmol/L Normal 136-145 [facility] Comment on above: Order Comment: Campu s: M Minimal Draw: Y Performed By: #### L 500.87370, L500.94697 #### [facility] [address] [place] [address] Urea nitrogen [Mass/Vol] 10 mg/dL Normal 7-26 [facility] Comment on above: Order Comment: Campu s: M Minimal Draw: Y Performed By: #### L 500.81261, L500.05245 #### [facility] [address] [place] [address] Urea nitrogen/Creatinine [Mass ratio] 11 mg/mg Low 15-24 [facility] Comment on above: Order Comment: Campu s: M Minimal Draw: Y Performed By: #### L 500.32941, L500.01313 #### [facility] [address] [place] [address] GFR ESTon 07-30-2020 IF AMER Greater than 60 Normal [facility] Comment on above: Order Comment: Campu s: M Minimal Draw: Y Performed By: #### L 500.06893, L500.07888 #### [facility] [address] [place] [address] IF non-AFR AMER 59 Normal [facility] Comment on above: Order Comment: Maciel s: M Minimal Draw: Y Performed By: #### L 500.45343, L500.83544 #### [facility] [address] [place] [address] OTPNon 07-30-2020 OT Progress Note Normal [facility] OTPN Occupational Therapy Inpatient Treatment Note Medical Diagnosis: 1. Acute hypoxemic respiratory failure 2. Syncope OCCUPATIONAL PROFILE AND HISTORY Demographics: Age: 70Y Gender: Female Primary Language: Estonian Preferred Language: Estonian Referring Service/Team: Medicine Rehabilitation Precautions/Restrictio ns: monitor BP fall risk Patient Report: Pt was pleasant and agreeable to therapy My knees are bad, i cant stand or walk very good" Patient/Caregiver Goals: Go home Pain: Patient currently without complaints of pain. OBJECTIVE / OCCUPATIONAL PERFORMANCE General Observation: Pt in chair upon arrival, pt left w/ transport at session end, pt going to x-ray Activities of Daily Living: Current Status Previous Status ADLs Feeding - Independent Grooming - Supervision Bathing-UE - Supervision Bathing-LE - Minimal assistance Dressing-UE - Supervision Dressing-LE - Minimal assistance Toileting - Minimal assistance AM-PAC Daily Activities: Putting On/Taking Off Lower Body Clothing: A lot of help needed Bathing:: A lot of help needed Toileting: A lot of help needed Putting On/Taking Off Upper Body Clothing: A little help needed Grooming: A little help needed Eating a Meal: No help needed [facility] PATIENT NAME: ANDRE BLANCA [address] [facility] [address] [facility] [address] Andrea MEDICAL REC #: [id number] [place] [address] ADMIT DATE: 07/27/20 SERVICE DATE: 07/30/20 Occupational Therapy Progress Note ATTENDING PHY: Marta Horvath DO Raw Score = 16 , AM-PAC t-Scale Score = 35.96 and G-Code Modifier = CK No ADL completed today, the above AM-PAC score reflects pt's current functional levels Functional Mobility: Bed Mobility: All bed mobility including supine to sit, rolling, scooting. requiring moderate assistance. Transfers: Patient transferred sit to/from stand requiring moderate assistance of 1 person. Locomotion/Gait/Ambula tion: Patient was moderate assist with gait/ambulation of 1 person for 6-8 ft . Patient requires the following assistive device(s): Rolling walker. slow, decreased step length. Interventions: Therapeutic Exercise: Pt completed sitting B UE light resistance ther ex to increase B UE strength and activity tolerance for improved transfers and ADL's, shoulder flex/ext, abd/add, internal/ext rotation, elbow flex/ext, 10 sets x 10-12. Self Care/Home Management: Pt WW safety and pursed lip breathing ed. Pt sit to stand to WW x 3, static standing tolerance x 1-2 minutes, pt demos multiple LoB w/ B LE buckling noted, pt required mod A to maintain standing balance. pt completed sitting core strengthening tasks pulling into extension against light resistance and returning to upright sitting, pt fatigued quickly requiring multiple rest breaks but O2 was WNL. Pt stand pivot transfer to transport bed, PoC ed. Pain Reassessment: No pain at onset or during treatment, which does not warrant reassessment. Education: Education Provided: Plan of care. Safety issues and interventions. Use of adaptive devices. Bed mobility. Functional transfers. Breathing exercises. Audience: Patient. Mode: Explanation. Demonstration. Response: Needs practice. Needs reinforcement. ASSESSMENT Response to Visit: Pt tolerated fair, pt demos poor overall activity tolerance, strength and standing balance. pt required heavy hands on assist during standing tasks w/ multiple LoB and demos B LE buckling in standing. Pt is a heavy assist for LE self care and a high fall risk, pt is recommended for less than 60. Activity/Participation Problem List and Goals: No updates at this time. Progress Toward Goals: TREATMENT GOAL REVIEW: 1. MOD I SELF CARE - Not Met: Ongoing [facility] PATIENT NAME: ANDRE BLANCA [facility] Dr. Andrea MEDICAL REC #: [id number] [place] [address] ADMIT DATE: 07/27/20 SERVICE DATE: 07/30/20 Occupational Therapy Progress Note ATTENDING PHY: Marta Horvath DO 2. MOD I FUNCTIONAL TRANSFERS - Not Met Ongoing 3. MOD I FUNCTIONAL MOBILITY FOR GETTING AROUND THE HOUSE - Not Met Ongoing 4. IMPROVED STRENGTH/PULMONARY ENDURANCE TO DO ADL PROJECTED WHILE MAINTAINING O2 SATS ABOVE 92 - Not Met Ongoing 5. MOD I MIN CHALLENGE STANDING TASKS STANDING FOR UP TO 10 MIN AT A TIME W/ MINIMAL TO NO C/O DIZZINESS - Not Met Ongoing 6. PT/FAMILY WILL BE INSTRUCTED IN D/C RECOMMENDATIONS,HOME SAFETY,ADAPTIVE TECHNIQUES/EQUIPMENT AND DEMO UNDERSTANDING FOR FOLLOW THROUGH - Not Met: Ongoing Time frame to achieve treatment goal(s): 5x a wk until d/c PLAN Treatment Frequency, Duration and Interventions: Continue Occupational Therapy to achieve goals per previously established Plan of Care. ADL TRAINING, TRANSFER TRAINING, STANDING BALANCE/ENDURANCE TRAINING, FUNCTIONAL MOBILITY TRAINING, STRENGTHENING,GRADED THERAPEUTIC EXERCISES/ACTIVITIES,P T/FAMILY EDUCATION Recommended Occupational Therapy Follow Up: Upon acute care discharge, the following is currently recommended: Inpatient Occupational Therapy, LESS THAN 60 minutes per day. Equipment Recommended: TBD- requesting w/c to be safer and not fall at home when having dizzy episodes Recommended Consults: None currently. Development of Plan of Care: There was no change to plan of care today. If there are any questions regarding this service, please contact the Acute Therapy Department at extension [phone] Communication to Nursing: No updates at this time. Location of Patient at End of Therapy Session: Left in care of transport team Services: Total Billed: 24 minutes (Timed: 24, Untimed: 0) 14.00 Timed: [97820] ADL-HOME MANAGEMENT EA 15 MIN 10.00 Timed: [83741] THERAPEUTIC EXERCISE EA 15 MIN 0.00 Untimed: [] OT Treatment General ORDER Signed by: SIMONA Olmstead 07/30/2020 13:43:37 - CoSigned By: ANNIE MINAYA/Asuncion 07/30/2020 2:26:[address] [facility] PATIENT NAME: ANDRE BLANCA [facility] Dr. Andrea MEDICAL REC #: [id number] [place] [address] ADMIT DATE: 07/27/20 SERVICE DATE: 07/30/20 Occupational Therapy Progress Note ATTENDING PHY: Marta Horvath DO [facility] 07-30-2020 [facility] Patient Name: ANDRE BLANCA Drive [address] Date of : [address] [place] [address] Unit Number: [id number] Progress Note-Hospitalist Patient Status: ADM IN Attending Doctor: Marta Horvath DO Service Date: 07/30/20 1501 Chief Complaint Chief Complaint Syncope Patient is a 70-year-old female with past medical history significant for CVA, hypothyroidism, COPD not on home oxygen, recurrent syncopal episodes presented to [facility] after a syncopal episode. Patient also reported viral symptoms of diarrhea, shortness of breath, decreased appetite, headache, sore throat and myalgias. In ER, patient was found to be hypoxic with SPO2 of 85% on room air, placed on 2 L nasal cannula with SPO2: 94%. Chest x-ray revealed left lower lobe hazy opacity but when I reviewed it personally it does not show any obvious infiltrate. Patient was started on Rocephin, breathing treatments with DuoNeb. Orthostatics were positive and ordered compression hose. Subjective S: (2 ROS minimum) Patient seen and examined. Discussed with therapy. Patient not safe to be discharged home. Discussed with the patient initially she was insisting on being discharged home but later she is agreeable. She denies any nausea vomiting. Discussed with the staff. Orthostatic vital still positive. Patient also been complaining of right shoulder pain since recent fall. Objective (ROS) Nursing Vitals Vital Signs (Last) Result Date Time Pulse Ox 94 07/30 1415 B/P 124/67 07/30 141 O2 Delivery NASAL CANNULA 07/30 141 O2 Flow Rate 2L 07/30 141 Temp 98.2 07/30 141 Pulse 86 07/30 1415 Resp 20 07/30 141 Physical Exam Physical Examination Notes Awake and alert oriented x4 anxious HEENT atraumatic normocephalic Neck supple no JVP thyromegaly Lungs clear to auscultation bilateral no wheezes rhonchi Cardiovascular normal S1-S2 regular rate and rhythm Abdomen soft nontender nondistended positive bowel sounds Extremities no cyanosis clubbing edema MAINTE[employer]NCE GROUNDSK[employer] no focal deficit Musculoskeletal mild limitation of range of motion right upper extremity Diagnostic Data: Lab 24hr (CBC/BMP Fishbone) 07/30/20 0522: [Embedded Image Not Available] Anion Gap 5, Est GFR ( Amer) Greater than 60, Est GFR (Non-Af Amer) 59, BUN/ Creatinine Ratio 11 L, Glucose 136 H, Total Calcium 9.2 Assessment and Plan Conclusion 1. Acute hypoxemic respiratory failure Acute hypoxic respiratory failure secondary to pneumonia Left lower lobe pneumonia continue Rocephin Syncope secondary to orthostatic hypotension, continue IV fluids echo showed EF 60 to 65% Right shoulder pain secondary to recent fall syncope, will obtain x-ray History of CVA Hypothyroidism continue Synthroid Depression Bipolar disorder Debility deconditioning patient is okay with the placement Stay Reason/Anticipated Disch Awaiting Placement Disclaimer This dictation was created using voice recognition software. Phonetic and/or minor grammatical errors may exist. eSign Date and Time Edilma Wolf MD Verified/Reviewed by 07/30/20 1503 [facility] Progress Note-Hospitalist [facility] 07-30-2020 PT Progress Note [facility] PTPN Physical Therapy Inpatient Treatment Note Medical Diagnosis: 1. Acute hypoxemic respiratory failure 2. Syncope 3. Hypothyroidism Demographics: Age: 70Y Gender: Female Primary Language: Estonian Preferred Language: Estonian Rehabilitation Precautions/Restrictio ns: monitor BP fall risk SUBJECTIVE Patient Report: "I can barely move I am so weak. Good luck getting me up to the chair". "Dandy is gone so I can leave Monday". Patient/Caregiver Goals: Go home Pain: Patient currently without complaints of pain. OBJECTIVE General Observation: Pt slow to move, feels weak,. Lengthy discussion re:discharge planning. Pt voiced understanding for need to go to a rehab facility prior to homegoing. Pt in agreement then at end of session pt asked if she was leaving Monday. Physician in to see pt and she was made aware of pt not safe for home. Functional Activities After Today's Session: Transfers: Bed mobility:supine to sit w/ MIN A. Pt needed to sit at EOB for lengthy time due to c/o mild dizziness. Good sitting balance at EOB. TX:several trials sit<-.stand w/ MIN to MOD A w/ vc for hand placement. Static standing at ww several trials w/ mild dizziness and LE's buckling w/ prolonged standing needing MOD A for eccentric control to sit. Locomotion/Ambulation: Patient was moderate assist with gait/ambulation of 1 person for 5' . Patient requires the following assistive device(s): Rolling walker. decreased step length (B). Gait unsteady, LE's buckling due to fatigue Thex:Seated x 10 reps. ea. heel/toe ups, LAQ, Marching, hip abd/add all AROM w/ rest breaks needed. AM-PAC Basic Mobility: Turning Over in Bed: A little difficulty Sitting/Standing Chair with Arms: A lot of difficulty Lying on Back to Sitting on Side of Bed: A little difficulty Moving To/From Bed to Chair: A lot of help needed [facility] PATIENT NAME: ANDRE BLANCA [facility] Dr. Andrea MEDICAL REC #: [id number] [place] [address] ADMIT DATE: 07/27/20 SERVICE DATE: 07/30/20 Physical Therapy Progress Note ATTENDING PHY: Marta Horvath DO Walking in Hospital Room: A lot of help needed Climbing 3-5 Steps with Railing: A lot of help needed Raw Score = 14 , AM-PAC t-Scale Score = 38.10 and G-Code Modifier = CL Vital Signs: SPO2 w/ activity w/ O2 on 88-89% w/ good return to mid 90's w/ rest and pursed lip breathing. RN Silvia made aware Interventions: Gait Training: Bed mobility, sitting and standing balance, transfer training, monitoring of SpO2, LE thex, Pt education: proper tx technique, pursed lip breathing. extensive education on discharge planning. Pain Reassessment: No pain at onset or during treatment, which does not warrant reassessment. Education: Education Provided: Bed mobility. Functional transfers. Safety. Gait. Home exercise/activity plan. Audience: Patient. Mode: Explanation. Demonstration. Response: Needs practice. Needs reinforcement. ASSESSMENT Response to Visit: Tolerated session fairly w/ pt demonstrating decreased strength, balance, mobility and Endurance. Pt is a high fall risk and is unsafe for home. Pt educate don safety concerns w/ homegoing and recommendation for SNF. Pt in agreement but question her full understanding of the recommendation despite lengthy discussion. Pt's RN and Sound physician aware of pt's not safe for home. Activity/Participation Problem List and Goals: No updates at this time. Progress Toward Goals: Time frame to achieve treatment goal(s): 2 weeks 1. Pt transfer MOD I Ongoing 2. Pt ambulate at least 50 feet WW MOD I Ongoing 3. Demo independence with LE thex for endurance and strengthening Ongoing PLAN Treatment Frequency, Duration and Interventions: Continue Physical Therapy to achieve goals per previously established Plan of Care. gait, transfers, endurance, balance, safety Recommended Physical Therapy Follow Up: Upon acute care discharge, the following is currently recommended: Inpatient Physical Therapy, LESS THAN 60 minutes per day. Recommended Equipment: None issued this visit. Recommended Consults: None currently. Development of Plan of Care: There was no change to plan of care today. [facility] PATIENT NAME: ANDRE BLANCA Dr. Andrea MEDICAL REC #: [id number] [place] [address] ADMIT DATE: 07/27/20 SERVICE DATE: 07/30/20 Physical Therapy Progress Note ATTENDING PHY: Marta Horvath DO If there are any questions regarding this service, please contact the Acute Therapy Department at extension [phone] Location of Patient at End of Therapy Session: In chair, call light within reach Services: Total Billed: 29 minutes (Timed: 29, Untimed: 0) 29.00 Timed: [18034] GAIT TRAIN EA 15 MIN 0.00 Untimed: [] PT Treatment- General ORDER Signed by: RENALDO BENAVIDES, TENTER 07/30/2020 12:21:52 - CoSigned By: Alivia Patel, PT 07/30/2020 3:10:[address] [facility] PATIENT NAME: ANDRE BLANCA Dr. Andrea MEDICAL REC #: [id number] [place] [address] ADMIT DATE: 07/27/20 SERVICE DATE: 07/30/20 Physical Therapy Progress Note ATTENDING PHY: Marta Horvath DO Normal [facility] 07-29-2020 Anion gap [Moles/Vol] 4 mmol/L Low - [facility] Comment on above: Order Comment: Maciel Rubio What is the source? URINE Performed By: #### M 150.18742, M150.93219 #### [facility] [address] [place] [address] Calcium [Mass/Vol] 8.9 mg/dL Normal 8.5-10.5 [facility] Comment on above: Order Comment: Campu s: M What is the source? URINE Result Comment: NOTE NEW NORMAL RANGE DUE TO REAGENT CHANGE Performed By: #### M 150.05522, M150.84578 #### [facility] [address] [place] [address] Chloride [Moles/Vol] 106 mmol/L Normal 98-107 [facility] Comment on above: Order Comment: Campu s: M What is the source? URINE Performed By: #### M 150.06598, M150.66682 #### [facility] [address] [place] [address] CO2 [Moles/Vol] 30.0 mmol/L Normal 21-32 [facility] Comment on above: Order Comment: Campu s: M What is the source? URINE Performed By: #### M 150.24014, M150.12970 #### [facility] [address] [place], [place] [address] Creatinine [Mass/Vol] 1.07 mg/dL High 0.510-0.950 [facility] Comment on above: Order Comment: Campu s: M What is the source? URINE Result Comment: Geraldine ents receiving either N-Acetylcysteine (NAC) or Metamizole prior to venipuncture, may have falsely depressed results. Performed By: #### M 150.76883, M150.44899 #### [facility] [address] [place], [place] [id number] Glucose [Mass/Vol] 110 mg/dL High 70-100 [facility] Comment on above: Order Comment: Campu s: M What is the source? URINE Result Comment: 70-1 00- Normal Fasting; 100-125 Impaired Fasting; greater than 126 on more than one result- Diabetes. ADA guidelines. Results may be falsely elevated after the administration of Sulfapyridine. Results may be falsely depressed after the administration of Sulfasalazine. Performed By: #### M 150.14563, M150.76668 #### [facility] [address] [place] [address] Potassium [Moles/Vol] 3.5 mmol/L Normal 3.5-5.1 [facility] Comment on above: Order Comment: Campu s: M What is the source? URINE Performed By: #### M 150.12263, M150.39373 #### [facility] [address] [place] [id number] Sodium [Moles/Vol] 140 mmol/L Normal 136-145 [facility] Comment on above: Order Comment: Campu s: M What is the source? URINE Performed By: #### M 150.25802, M150.94923 #### [facility] [address] [place] [address] Urea nitrogen [Mass/Vol] 12 mg/dL Normal 7-26 [facility] Comment on above: Order Comment: Campu s: M What is the source? URINE Performed By: #### M 150.16436, M150.29373 #### [facility] [address] [place] [address] Urea nitrogen/Creatinine [Mass ratio] 11 mg/mg Low 15-24 [facility] Comment on above: Order Comment: Campu s: M What is the source? URINE Performed By: #### M 150.45805, M150.00169 #### [facility] [address] [place] [address] 12742 CBC W/DIFFon 07-29-2020 BASO ABS 0.10 K/CU MM Normal 0-0.2 [facility] Comment on above: Order Comment: Campu s: M Minimal Draw: Y Performed By: #### L 500.57579, L500.78292 #### [facility] [address] [place] [address] 96128 Basophils/100 WBC (Bld) 1.0 % Normal 0-2 M [facility] Comment on above: Order Comment: Campu s: M Minimal Draw: Y Performed By: #### L 500.44878, L500.54077 #### [facility] [address] [place] [address] EOS ABS 0.30 K/CU MM Normal 0-0.5 [facility] Comment on above: Order Comment: Maciel s: M Minimal Draw: Y Performed By: #### L 500.00173, L500.79558 #### [facility] [address] [place] [address] Eosinophils/100 WBC (Bld) 3.3 % Normal 0-5 [facility] Comment on above: Order Comment: Maciel s: M Minimal Draw: Y Performed By: #### L 500.96752, L500.34186 #### [facility] [address] [place] [address] Erythrocyte distribution width (RBC) [Ratio] 14.3 % Normal 11-14.5 [facility] Comment on above: Order Comment: Maciel s: M Minimal Draw: Y Performed By: #### L 500.57257, L500.38810 #### [facility] [address] [place] [address] Hematocrit (Bld) [Volume fraction] 33.4 % Low 35.0-47.0 [facility] Comment on above: Order Comment: Maciel s: M Minimal Draw: Y Performed By: #### L 500.74853, L500.11181 #### [facility] [address] [place] [address] Hemoglobin (Bld) [Mass/Vol] 10.7 g/dL Low 11.5-15.5 [facility] Comment on above: Order Comment: Maciel s: M Minimal Draw: Y Result Comment: Repe ated and verified. Performed By: #### L 500.19267, L500.71726 #### [facility] [address] [place] [address] IMMATR GRAN ABS 0.00 K/CU MM Normal Less than 2 [facility] Comment on above: Order Comment: Campu s: M Minimal Draw: Y Performed By: #### L 500.65274, L500.42100 #### [facility] [address] [place] [address] IMMATURE GRAN % 0.3 % Normal Less than 2 [facility] Comment on above: Order Comment: Campu s: M Minimal Draw: Y Performed By: #### L 500.17664, L500.11635 #### [facility] [address] [place] [address] Lymphocytes (Bld) [#/Vol] 1.70 K/CU MM Normal 0.9-4.4 [facility] Comment on above: Order Comment: Campu s: M Minimal Draw: Y Performed By: #### L 500.37277, L500.75848 #### [facility] [address] [place] [address] Lymphocytes/100 WBC (Bld) 21.9 % Normal 20-40 [facility] Comment on above: Order Comment: Campu s: M Minimal Draw: Y Performed By: #### L 500.97025, L500.70564 #### [facility] [address] [place] [address] MCHC (RBC) [Mass/Vol] 32.0 g/dL Normal 32.0-36.0 [facility] Comment on above: Order Comment: Campu s: M Minimal Draw: Y Performed By: #### L 500.47443, L500.39100 #### [facility] [address] [place] [address] MCV (RBC) [Entitic vol] 93.8 fL Normal 80.0-99.0 [facility] Comment on above: Order Comment: Campu s: M Minimal Draw: Y Performed By: #### L 500.57139, L500.08448 #### [facility] [address] [place] [address] MONO ABS 0.50 K/CU MM Normal 0.1-1.1 [facility] Comment on above: Order Comment: Campu s: M Minimal Draw: Y Performed By: #### L 500.57827, L500.40819 #### [facility] [address] [place] [address] Monocytes/100 WBC (Bld) 6.4 % Normal 2-10 M [facility] Comment on above: Order Comment: Campu s: M Minimal Draw: Y Performed By: #### L 500.47521, L500.08180 #### [facility] [address] [place] [address] NEUTROPHIL ABS 5.30 K/CU MM Normal 2.0-8.3 [facility] Comment on above: Order Comment: Campu s: M Minimal Draw: Y Performed By: #### L 500.57694, L500.00414 #### [facility] [address] [place] [address] Neutrophils/100 WBC (Bld) 67.1 % Normal 45-75 [facility] Comment on above: Order Comment: Campu s: M Minimal Draw: Y Performed By: #### L 500.68827, L500.59996 #### [facility] [address] [place] [address] Nucleated RBC/100 WBC (Bld) [Ratio] 0.0 % Normal Less than 1 [facility] Comment on above: Order Comment: Campu s: M Minimal Draw: Y Performed By: #### L 500.79673, L500.22670 #### [facility] [address] [place], [place] [id number] Platelet mean volume (Bld) [Entitic vol] 10.4 fL Normal 9.4-12.4 [facility] Comment on above: Order Comment: Campu s: M Minimal Draw: Y Performed By: #### L 500.32111, L500.50154 #### [facility] [address] [place] [address] 51216 Platelets (Bld) [#/Vol] 200 K/CU MM Normal 150-450 [facility] Comment on above: Order Comment: Campu s: M Minimal Draw: Y Performed By: #### L 500.95835, L500.77465 #### [facility] [address] [place], [place] [address] RBC (Bld) [#/Vol] 3.56 M/CU MM Low 3.90-5.30 [facility] Comment on above: Order Comment: Campu s: M Minimal Draw: Y Performed By: #### L 500.29510, L500.51285 #### [facility] [address] [place], [place] [address] WBC (Bld) [#/Vol] 7.9 K/CUMM Normal 4.5-11.0 [facility] Comment on above: Order Comment: Campu s: M Minimal Draw: Y Performed By: #### L 500.03156, L500.07055 #### [facility] [address] [place] [address] 44833 GFR ESTon 07-29-2020 IF AMER Greater than 60 Normal [facility] Comment on above: Order Comment: Maciel s: M What is the source? URINE Performed By: #### M 150.58009, M150.41227 #### [facility] [address] [place] [address] 77231 IF non-AFR AMER 51 Normal [facility] Comment on above: Order Comment: Maciel s: M What is the source? URINE Performed By: #### M 150.17085, M150.47899 #### [facility] [address] [place] [address] 58234 LEGIONELLA ANTIon 07-29-2020 LEGIONELLA ANTI LEGIONELLA ANTIGEN NEGATIVE FOR LEGIONELLA PNEUMOPHILA SEROGROUP 1 ANTIGEN Normal [facility] Comment on above: Order Comment: Maciel s: M What is the source? URINE Performed By: #### M 150.73077, M150.57588 #### [facility] [address]# [phone] LEGIONELLA ANTI This report has been cancelled [facility] Comment on above: Order Comment: Maciel s: M What is the source? URINE OTPNon 07-29-2020 OT Progress Note Normal [facility] OTPN Occupational Therapy Inpatient Missed Visit Note Location: Bedside. Attempted to visit patient for therapy, but was unable for the following reasons: Patient refused treatment. Pt stated that she is exhausted and is not up to do anything today. She just did a lot of moving around w/ staff changing the bed and is not up to doing anything else. Continued to refuse despite encouragement. Return Plan: Will return as soon as possible for another attempt. If there are any questions regarding this service, please contact the Acute Therapy Department at extension [phone] Services: Total Billed: 0 minutes (Timed: 0, Untimed: 0) 0.00 Untimed: [] OT Treatment General ORDER Signed by: KASEY MINAYA 07/29/2020 14:52:33 [facility] PATIENT NAME: ANDRE BLANCA [facility] Dr. Andrea MEDICAL REC #: [id number] [place] [address] ADMIT DATE: 07/27/20 SERVICE DATE: 07/29/20 Occupational Therapy Progress Note ATTENDING PHY: Marta Horvath DO Normal [facility] PNEUMO ANTIGENon 07-29-2020 PNEUMO ANTIGEN S PNEUMONIAE ANTIGEN PRESUMPTIVE NEGATIVE FOR STREP PNEUMONIAE ANTIGEN Normal [facility] Comment on above: Order Comment: Maciel s: M What is the source? URINE Performed By: #### M 150.51010, M150.97272 #### [facility] [address] [place] [address] PNEUMO ANTIGEN This report has been cancelled Normal [facility] Comment on above: Order Comment: Maciel s: M What is the source? URINE PROG [facility] 07-29-2020 PROG [facility] Patient Name: ANDRE BLANCA [address] [facility] [address] Date of : [address] [address] Unit Number: [id number] Progress Note-Hospitalist Patient Status: ADM IN Attending Doctor: Marta Horvath DO Service Date: 07/29/20958 Chief Complaint Chief Complaint Syncope Patient is a 70-year-old female with past medical history significant for CVA, hypothyroidism, COPD not on home oxygen, recurrent syncopal episodes presented to [facility] after a syncopal episode. Patient also reported viral symptoms of diarrhea, shortness of breath, decreased appetite, headache, sore throat and myalgias. In ER, patient was found to be hypoxic with SPO2 of 85% on room air, placed on 2 L nasal cannula with SPO2: 94%. Chest x-ray revealed left lower lobe hazy opacity but when I reviewed it personally it does not show any obvious infiltrate. Patient was started on Rocephin, breathing treatments with DuoNeb. Orthostatics were positive and ordered compression hose. Subjective S: (2 ROS minimum) Patient seen and examined today. Patient reported that she has cough with yellow-colored sputum production. Reported that she feels better compared to the day of admission. Still on 2 L nasal cannula saturating at 94%. We will try to wean oxygen as able today. Discussed about discharge plan with the patient and she prefers to go home with home therapy, she requested wheelchair at the time of discharge. Discussed with the nursing report about the plan. Objective (ROS) Nursing Vitals Vital Signs (Last) Result Date Time Pulse Ox 87 07/29 0750 B/P 113/53 07/29 0750 Temp 97.6 07/29 0750 Pulse 82 07/29 0750 Resp 16 07/29 075 O2 Delivery NASAL CANNULA 07/29 28 O2 Flow Rate 2 07/29 28 Physical Exam Physical Examination Notes General: Pt is not in any acute distress HEENT: PERRL, no rhinorrhea, oral hygiene is good Neck: Supple, no lymphnode swelling or thyromegaly noticed Chest: S1, S2 present, regualr rate and rhythm, no murmurs, rub or gallop noticed Lungs: Shallow breathing noticed, clear to auscultation bilaterally, no wheeze or crackles noticed Abdomen: Soft, non distended, non tender, bowel sounds present Neurological: No deficits noticed Vascular: Peripheral pulses palpable and equal bilaterally Psychiatry: Normal mood Skin: No new skin lesions or rash noticed. Diagnostic Data: Lab 24hr (CBC/BMP [facility]) 07/29/20 0526: [Embedded Image Not Available] Anion Gap 4 L, Est GFR ( Amer) Greater than 60, Est GFR (Non-Af Amer) 51, BUN/ Creatinine Ratio 11 L, Glucose 110 H, Total Calcium 8.9, RBC 3.56 L, MCV 93.8, MCHC 32.0, RDW 14.3, MPV 10.4, Immature Gran % (Auto) 0.3, Abs Immat Gran (auto) 0.00, Seg Neutrophils % 67.1, Lymphocytes % 21.9, Monocytes % 6.4, Eosinophils % 3.3, Basophils % 1.0, Neutrophils # 5.30, Lymphocytes # 1.70, Monocytes # 0.50, Eosinophils # 0.30, Basophils # 0.10, Nucleated RBCs 0.0 Assessment and Plan Conclusion 1. Acute hypoxemic respiratory failure 2. Pneumonia 3. Syncope 4. Hypothyroidism Assessment: Acute hypoxic respiratory failure secondary to pneumonia Left lower lobe pneumonia Syncope Hypothyroidism History of CVA Depression Bipolar disorder History of COPD Plan: -Continue Rocephin and breathing treatments as scheduled and as needed -Patient still has cough with yellow-colored sputum production and on 3 L nasal cannula. Wean oxygen as able. -Patient has positive orthostats noticed, will adjust her medications at the time of discharge. -Echocardiogram revealed diastolic dysfunction with EF of 60 to 65%. -Recommend compression hose -We will continue home medications Synthyroid, risperidone, amitriptyline, pregabalin, buspirone, pravastatin, Plavix, Tegretol -PT recommended inpatient therapy, OT recommended home therapy. Patient preferred to go home with home therapy. Requested wheelchair at the time of discharge. Disposition: Most likely in 24 to 48 hours, home with home health care. Disclaimer This dictation was created using voice recognition software. Phonetic and/or minor grammatical errors may exist. eSign Date and Time Gloria Saxena MD Verified/Reviewed by 07/29/[address] [place] [address] Progress Note-Hospitalist [facility] PTPNon 07-29-2020 PT Progress Note [facility] PTPN Physical Therapy Inpatient Missed Visit Note Attempted to visit patient for therapy, but was unable for the following reasons: Patient refused treatment. Fatigued. "I am worn out, I can't do anything else right now". Encouraged AP hourly for DVT prevention and up to chair later w;/ staff assistance. Return Plan: Will return as soon as possible for another attempt. If there are any questions regarding this service, please contact the Acute Therapy Department at extension [phone] Services: Total Billed: 0 minutes (Timed: 0, Untimed: 0) 0.00 Untimed: [] PT Treatment- General ORDER Signed by: RENALDO BENAVIDES, TENTER 07/29/2020 16:28:14 - CoSigned By: JARAD SMALLS, PT 07/29/2020 4:32:[address] [facility] PATIENT NAME: ANDRE BLANCA [facility] Dr. Andrea MEDICAL REC #: [id number] [place] [address] ADMIT DATE: 07/27/20 SERVICE DATE: 07/29/20 Physical Therapy Progress Note ATTENDING PHY: Marta Horvath DO [facility] RESP/SPUT CULTon 07-29-2020 RESP/SPUT CULT This report has been cancelled [facility] Comment on above: Order Comment: Maciel joe: Ramiro What is the source? URINE D-DIMERon 07-28-2020 D-DIMER 660.0 ng/mlFEU High 0-590 [facility] Comment on above: Order Comment: Maciel s: M Minimal Draw: Y Result Comment: This test has been validated for the exclusion of Deep Vein Thrombosis and Pulmonary Embolism, with a cut-off of 450 ng/ml/FEU. Results should be interpreted in conjunction with the patient's medical history, clinical presentation and other findings. D-Dimer is elevated in DVT, PE and DIC. However, an increased D-Dimer can be seen in other clinical conditions and should not be used as a confirmatory diagnostic marker. Performed By: #### L 500.93565, L500.34777 #### [facility] [address]# [phone] Jolanta 07-28-2020 EMERGENCY PHYSICIAN REPORT This is a preliminary report only, as the practitioner review and authentication has not occurred. Normal [facility] ER PHYSICIAN ASSESSMENT RECORDS : FlexChartData Event Time: 07/27/2020 18:30 Status: Signed [facility] Andre Blanca [[id number]] Attending Physician 70 / F / 1950 Chart (V2b) Chart created at 07/27/2020 17:51 by Juan Manuel Skelton Chart closed at 07/27/2020 17:55 Entry in Emergency Department at 07/27/2020 13:46 Patient Name: Andre Blanca Record Number: [id number] Date: 07/27/2020 17:51 Entered Department at: 07/27/2020 13:46 Patient Seen at: 07/27/2020 14:32 Decision to Admit at: 07/27/2020 17:55 Historian: EMS and Patient PCP: [facility] Chief Complaint:SYCOPE. trauma stand by. ambulatory. Triage Note reviewed and Initial Vital Signs reviewed. Temperature: 98.1 F (36.7 C).. History of Present Illness: Patient comes in by EMS, she has a history of syncope, this has been evaluated as an outpatient she says no one knows why she passes out. She passed out today, she does not have any complaints, states she hit her head but really does not have headache does have slight neck pain. Denies chest pain, dyspnea or palpitations. Does have history of COPD. HPI Elements: Onset: Hours ago; Timing: Sudden Onset; Quality: Aching and Dull; Severity: maximum [facility] PATIENT NAME: ANDRE BLANCA [facility] Dr. Andrea MEDICAL REC #: [id number] [place] [address] EMERGENCY DEPARTMENT REPORT EMERGENCY DEPARTMENT PHYSICIAN Moderate, now Moderate; Context: At Rest; Exacerbated by: Nothing; Alleviated by: Nothing Review of Systems. Constitutional: negative for Fever Eyes: negative for Eye Pain Ear/Nose/Throat: negative for Sore Throat Cardio-Vascular: positive for Syncope, negative for Chest Pain Respiratory: positive for Dyspnea, negative for Hemoptysis GI: negative for Abd. Pain : negative for Hematuria Musculo-Skeletal: negative for Back Pain Neurological: negative for Headache Hem/Endo: negative for Bleeding Immunology: negative for Joint Pain Past History, Medications, Allergies, Social History and Family History reviewed in nurses note. Medications: Reviewed RN Note. Allergies: Reviewed RN Note IMITREX(Difficulty Breathing), STADOL(Dizziness), Ibuprofen(Rapid heart rate, ringing ears), Dilaudid(Vomiting), PERCOCET(Nausea and Vomiting), Vicodin(Nausea and Vomiting), ASA(HEART RACING AND EARS RINGING), PERCOCET(Nausea and Vomiting), Vicodin(Nausea and Vomiting), ASA(HEART RACING AND EARS RINGING), IMITREX(Difficulty Breathing), STADOL(Dizziness), Ibuprofen(Rapid heart rate, ringing ears), Dilaudid(Vomiting), PERCOCET(Nausea and Vomiting), Vicodin(Nausea and Vomiting), ASA(HEART RACING AND EARS RINGING), IMITREX(Difficulty Breathing), STADOL(Dizziness), Ibuprofen(Rapid heart rate, ringing ears), Dilaudid(Vomiting) Social History: Reviewed RN Note. Family History: Reviewed RN Note Physical Examination: General: Alert and Well Developed; Resting comfortably, no acute distress HEENT: Normal ENT inspection. Head: Atraumatic. Eyes: PERRL; EOMI. Neck: Paraspinal Tender and Supple; negative for Pain w ROM Respiratory: No Resp Distress and Decreased Breath Sounds Bilateral Cardio-Vascular: RRR Abdomen: Non-tender and Soft Back: Non-tender Neurological: No [facility] PATIENT NAME: ANDRE BLANCA [facility] Dr. Andrea MEDICAL REC #: [id number] [place] [address] EMERGENCY DEPARTMENT REPORT EMERGENCY DEPARTMENT PHYSICIAN Gross Weakness Skin: Warm and Dry Psychological: Mood/Affect Normal CBC W/DIFF, information as of 07/27/2020, 3:11 pm 89.0 / 13.9 / 10.0 andgt;------andlt; 265 / 42.1 / N:76.3* BASO ABS: 0.10 K/Cu Mm; BASOPHIL %: 0.8 %; EOS ABS: 0.20 K/Cu Mm; EOSINOPHIL %: 2.3 %; IMMATR GRAN ABS: 0.00 K/Cu Mm; IMMATURE GRAN %: 0.3 %; LYMPH %: 14.1 %; LYMPH ABS: 1.40 K/Cu Mm; MCHC: 33.0 Gm/Dl; MONO ABS: 0.60 K/Cu Mm; MONOCYTE %: 6.2 %; MPV: 10.2; NEUTROPHIL ABS: 7.60 K/Cu Mm; NRBC: 0.0 %; RBC: 4.73 M/Cu Mm; RDW: 14.2 BMP, information as of 07/27/2020, 2:11 pm 140 --------+--------+---- ----andlt; 136* Anion Gap = 9 3.9 BUN/CREA: 10; CALCIUM TOTAL: 9.7 Mg/Dl Cardiogram: Interpreted by me. Read Time: 07/27/2020 17:53 Rate NormalRhythm Sinus RhythmAxis NormalIntervals NormalQRS RBBBST/T Normal Comparison: Unchanged from 2019. Monitor / Rhythm Strip: NSR Imaging Study Obtained: CT (CERVICAL SP) W/O CON Imaging Study Obtained: CT (HEAD/BRAIN) WO CONT Imaging Study Obtained: CHEST (PORTABLE) Imaging Study Obtained: CT CERVICAL SP. W/O CON, Status:Signed Report Available CT CERVICAL SP. W/O CON Ordering Physician: Juan Manuel Skelton MD 07/27/2020 2:[address] [facility] PATIENT NAME: ANDRE BLANCA [facility] Dr. Andrea MEDICAL REC #: [id number] [place] [address] EMERGENCY DEPARTMENT REPORT EMERGENCY DEPARTMENT PHYSICIAN CT CERVICAL SPINE WITHOUT IV CONTRAST: Clinical Statement: Syncope, fall Comparison: CT cervical spine 11/19/2016 TECHNIQUE: 2.5 mm serial axial images of the cervical spine were obtained. Coronal and sagittal reconstructions were generated. Three-dimensional reconstruction images were also performed by a radiologist on an independent workstation to aid in interpretation. FINDINGS: The visualized posterior fossa is within normal limits. There is normal cervical alignment. Occipitoatlantal and atlantoaxial relationships are maintained. The dens is intact. The vertebral body heights are maintained. The facets articulate normally the posterior elements are intact. No prevertebral soft tissue swelling. No acute fractures are identified. Degenerative disk disease has mildly progressed in comparison to prior. The findings are most severe at C5-C6 and C6-C7. The soft tissues of the neck are within normal limits. There are some normal-sized lymph nodes scattered along the jugular chains. There is [facility] PATIENT NAME: ANDRE BLANCA Dr. Andrea MEDICAL REC #: [id number] [place] [address] EMERGENCY DEPARTMENT REPORT EMERGENCY DEPARTMENT PHYSICIAN no neck mass or fluid collection.. IMPRESSION: No acute osseous abnormality. Multilevel degenerative disk disease and facet arthropathy Dictated by Repair Department Manager: Jennifer Cobb DO Reviewed and Signed by: Kwesi Houston MD ---- Electronic Signature on File ---- Signed By: Kwesi Houston MD [email or web address] Dictated: 07/27/2020 3:00 PM Signed: 07/27/2020 3:22 PM Reported By: KWESI HOUSTON M.D. Imaging Study Obtained: CT HEAD/BRAIN W/O CON, Status:Signed Report Available CT HEAD/BRAIN W/O CON Ordering Physician: Juan Manuel Skelton MD 07/27/2020 2:[address] HEAD/BRAIN WITHOUT IV CONTRAST: Clinical Statement: Syncope Comparison: Head CT 02/22/2019, MRI brain 02/23/2019 TECHNIQUE: 2.5 mm thick axial images were obtained the posterior fossa with [address] [facility] PATIENT NAME: ANDRE BLANCA Dr. Andrea MEDICAL REC #: [id number] [place] [address] EMERGENCY DEPARTMENT REPORT EMERGENCY DEPARTMENT PHYSICIAN thick axial images obtained of the remaining brain. FINDINGS: No acute infarct, intracranial hemorrhage, abnormal fluid collection, hydrocephalus, or mass. There is mild age related cortical involution. Scattered nonspecific periventricular and subcortical hypodensities likely represent chronic microvascular angiopathy. There is a remote lacunar infarct in the left caudate nucleus.There are calcifications of the internal carotid arteries. Density of the large dural venous sinuses is appropriate. The visualized paranasal sinuses and mastoid air cells are predominantly clear. No acute fracture or soft tissue swelling. The visualized orbits and globes are intact. IMPRESSION: No acute intracranial abnormality. Stable age-related and chronic ischemic changes. Dictated by Repair Department Manager: Jennifer Cobb DO Reviewed and Signed by: Kwesi Houston MD ---- Electronic Signature on File ---- Signed By: Kwesi Houston MD [facility] PATIENT NAME: ANDRE BLANCA [facility] Dr. Andrea MEDICAL REC #: [id number] [place] [address] EMERGENCY DEPARTMENT REPORT EMERGENCY DEPARTMENT PHYSICIAN [email or web address] Dictated: 07/27/2020 2:55 PM Signed: 07/27/2020 3:18 PM Reported By: KWESI HOUSTON M.D. Imaging Study Obtained: PORTABLE CHEST, Status:Signed Report Available PORTABLE CHEST Ordering Physician: Juan Manuel Skelton MD 07/27/2020 4:27 PM PORTABLE UPRIGHT CHEST (1645): Clinical Statement: Hypoxia Comparison: Chest radiograph 02/22/2019 FINDINGS: The cardiomediastinal silhouette is normal. Patient is slightly rotated toward the right. There is hazy opacity at the left lung base. No vascular congestion, pleural effusion, or pneumothorax. Osseous structures are unremarkable. IMPRESSION: Hazy opacity at the left lung base, possible atelectasis versus early pneumonia. [facility] PATIENT NAME: ANDRE BLANCA Dr. Andrea MEDICAL REC #: [id number] [place] [address] EMERGENCY DEPARTMENT REPORT EMERGENCY DEPARTMENT PHYSICIAN Dictated by Repair Department Manager: Jennifer Cobb DO Reviewed and Signed by: Laz Funk MD ---- Electronic Signature on File ---- Signed By: Laz Funk MD [email or web address] Dictated: 07/27/2020 4:58 PM Signed: 07/27/2020 5:07 PM Reported By: LAZ FUNK M.D. Radiology: Image Reviewed and Interpreted by Radiologist. Medical Decision Making During the patients ER stay she has developed some hypoxia, pulse ox is 85% on room air and she does not wear oxygen at home. X-ray shows she is developing some pneumonia left lower lung. This is very likely COVID-19 I suspect. She is given aerosols, supplemental O2. Due to her syncope and hypoxia she will need admission to the hospital for further inpatient care and assessment. Re-Evaluation: 17:53: Symptoms Worsened. Examination Worsened. Vital Signs: Oxygen Saturation: 85% room air. Consults: 17:54: Hospitalist; Additional Information: Discussed Results, Diagnosis and Follow-Up with Patient. Clinical Impression: 1. Acute exacerbation of COPD with hypoxia [facility] PATIENT NAME: ANDRE BLANCA Dr. Andrea MEDICAL REC #: [id number] [place] [address] EMERGENCY DEPARTMENT REPORT EMERGENCY DEPARTMENT PHYSICIAN 2. Acute left lobe pneumonia with suspected COVID-19 pneumonitis 3. Acute syncopal episode 4. Acute cervical strain Critical Care Time: 40 minutes, excluding billable procedures. The high probability of sudden, clinically significant, or life-threatening deterioration required my full and direct attention, intervention and personal management while the patient was critical. I provided critical care services including: Interpreting diagnostic studies; Medication orders and management; Vital sign assessment monitoring and review; Re-evaluation; Documentation time; Old chart review; Youth Officer collaboration on finding and tx options; Chart data review. The aggregate critical time was 40 minutes in direct care for this patient either at the bedside or elsewhere in the Emergency Department. This time is in addition to time spent performing other reported procedures. Diagnosis for Admit: Syncope/hypoxia/COPD.. Disposition: Admitted at 27 Jul 2020, 17:55. EMS run report reviewed (not applicable for EMT squads).. MSE completed. I was the primary ED attending.. Patient transported to ED by EMS with medical direction by SCEP physician (not applicable for EMT squads) .. ===DISCHARGE REPORT=== : FlexChartData Event Time: 07/27/2020 18:30 DEMOGRAPHICS [employer] Patient: ANDRE BLANCA Sex: F [facility] PATIENT NAME: ANDRE BLANCA [address] [facility] [address] Andrea MEDICAL REC #: [id number] [place] [address] EMERGENCY DEPARTMENT REPORT EMERGENCY DEPARTMENT PHYSICIAN : 1950 Age: 70 yr Account No: [id number] Registration Date: 13:46 07/27/2020 Address: [address] [place] [address] [address] Address: [place] [address] REGISTRATION ED Number: [id number] Marital Status: W Financial Class: FEDP TRIAGE Priority: 2 - Emergent Complaint: Syncope Stated Complaint: SYCOPE. trauma stand by. ambulatory. Arrival Date: 07/27/2020 13:46 Triage Date: 07/27/2020 13:47 Mode of Arrival: Ambulance WC: N Language: Estonian Transport: [facility] BED E37 In: 07/27/2020 13:49:13 07/27/2020 13:49:13 JLTA E37 (Removed From) Out: 07/27/2020 22:50:14 07/27/2020 22:50:14 KTDA PROVIDERS Emergency Medical Service Provider Contact: 07/27/2020 13:47:31 EMS End: [facility] PATIENT NAME: ANDRE BLANCA [facility] Dr. Andrea MEDICAL REC #: [id number] [place] [address] EMERGENCY DEPARTMENT REPORT EMERGENCY DEPARTMENT PHYSICIAN SHA CHUNG Provider Contact: 07/27/2020 14:01:38 LMSB End: MD Juan Manuel Skelton Provider Contact: 07/27/2020 14:32:08 ELOISA End: SHA BALLESTEROS Provider Contact: 07/27/2020 15:40:20 KTDA End: TRIAGE HISTORY ALLERGIES Allergic To: PERCOCET - Nausea and Vomiting 07/27/2020 13:49 JLTA Allergic To: Vicodin - Nausea and Vomiting 07/27/2020 13:49 JLTA Allergic To: ASA - HEART RACING AND EARS RINGING 07/27/2020 13:49 JLTA Allergic To: IMITREX - Difficulty Breathing 07/27/2020 13:49 JLTA Allergic To: STADOL - Dizziness 07/27/2020 13:49 JLTA Allergic To: Ibuprofen - Rapid heart rate, ringing ears 07/27/2020 13:49 JLTA Allergic To: Dilaudid - Vomiting 07/27/2020 13:49 JLTA ILLNESS Illness: Chronic Pains KNEES 07/27/2020 13:49 JLTA Illness: CVA 07/27/2020 13:49 JLTA Illness: Thyroid Disease 07/27/2020 13:49 JLTA Illness: Irritable Bowel Syndrome 07/27/2020 13:[address] [facility] PATIENT NAME: ANDRE BLANCA [facility] Dr. Andrea MEDICAL REC #: [id number] [place] [address] EMERGENCY DEPARTMENT REPORT EMERGENCY DEPARTMENT PHYSICIAN Illness: Migraines 07/27/2020 13:49 JLTA Illness: *Family History of CA 07/27/2020 13:49 JLTA Illness: *Family History of CAD 07/27/2020 13:49 JLTA Illness: *Family History of CVA 07/27/2020 13:49 JLTA Illness: *Family History of HTN 07/27/2020 13:49 JLTA PAST SURGERY HIST Surgery: Hysterectomy-1990 07/27/2020 13:49 JLTA Surgery: R ARM SURGERY 07/27/2020 13:49 JLTA Surgery: Ingrown toenail 07/27/2020 13:49 JLTA Surgery: Cholecystectomy 07/27/2020 13:49 JLTA PAST SOCIAL HIST Social History: Communicates without difficulty 07/27/2020 13:49 JLTA Social History: Lives alone 07/27/2020 13:49 JLTA Social History: Alcohol - None 07/27/2020 13:49 JLTA Social History: Smoker-None 07/27/2020 13:49 JLTA Social History: Denies Domestic Violence 07/27/2020 13:49 JLTA Social History: Have you traveled in the past month? Where NO 07/27/2020 13:49 JLTA IMMUNIZATIONS Immunization: Flu Vaccine-yes 07/27/2020 13:49 JLTA Immunization: Pneumonia Vaccine-yes 07/27/2020 13:[address] [facility] PATIENT NAME: ANDRE BLANCA [facility] Dr. Andrea MEDICAL REC #: [id number] [place] [address] EMERGENCY DEPARTMENT REPORT EMERGENCY DEPARTMENT PHYSICIAN Respiratory Treatment : Respiratory Therapy Treatment Event Time: 07/27/2020 17:14 MDCB Therapy:Aerosol: Albuterol 2.5mg Atrovent 0.5mg Pre Treatment Auscultation:clear: Pre Treatment Vital Signs:heart rate pre treatment: 20respiratory rate pre treatment: 83 Small Volume Nebulizer Treatment:SVN given with mouthpiece Post Treatment Auscultation:clear: Post Treatment Vital Signs:heart rate post treatment: 83respiratory rate post treatment: 20 Respiratory Treatment : Respiratory Therapy Treatment Event Time: 07/27/2020 17:24 MDCB Therapy:Aerosol: Albuterol 2.5mg Respiratory Treatment : Respiratory Therapy Treatment Event Time: 07/27/2020 17:34 MDCB Therapy:Aerosol: Albuterol 2.5mg Pre Treatment Auscultation:clear: Pre Treatment Vital Signs:heart rate pre treatment: 83respiratory rate pre treatment: 20 Small Volume Nebulizer Treatment:SVN given with mouthpiece Post Treatment Auscultation:clear: Post Treatment Vital Signs:heart rate post treatment: 83respiratory rate post treatment: 20 ASSESSMENT NOTES 07/27/2020 14:29 pt assisted to bedside commode 07/27/2020 14:29 JOSELIN 07/27/2020 15:24 please see trauma paperwork for charting 07/27/2020 15:24 LMSB 07/27/2020 15:37 report given to Hollie Ballesteros RN 07/27/2020 15:37 LMSB TREATMENT 07/27/2020 13:39 Trauma Time Activation - 2. Trauma Standby Called @ 1339 07/27/2020 15:24 LMSB 07/27/2020 17:47 Physician Call - Dr. IGLESIAS called at 171507/27/2020 17:[address] [facility] PATIENT NAME: ANDRE BLANCA [facility] Dr. Andrea MEDICAL REC #: [id number] [place] [address] EMERGENCY DEPARTMENT REPORT EMERGENCY DEPARTMENT PHYSICIAN 07/27/2020 17:47 Physician Call - Dr. HORVATH answered at 172507/27/2020 17:48 VLB MEDICATIONS IV I AND O VITALS VS-ROUTINE Time: 07/27/2020 13:58 B/P: 127/66 - Left Upper Arm - Sitting - Machine Pulse: 91 - Monitor Resp: 22 Sa02: 95 Room Air 07/27/2020 16:43 KTDA VS-Pain Time: 07/27/2020 13:58 07/27/2020 16:43 KTDA VS-GCS Time: 07/27/2020 13:58 07/27/2020 16:43 KTDA VS-HT/WT Time: 07/27/2020 13:58 07/27/2020 16:43 KTDA VS-Visual Time: 07/27/2020 13:58 07/27/2020 16:43 KTDA VS-FHT Time: 07/27/2020 13:58 07/27/2020 16:43 KTDA VS-Notes Time: 07/27/2020 13:58 07/27/2020 16:43 KTDA VS-ROUTINE Time: 07/27/2020 16:04 Temp: 98.10 F - Oral 07/27/2020 16:43 KTDA VS-Pain Time: 07/27/2020 16:04 07/27/2020 16:43 KTDA VS-GCS Time: 07/27/2020 16:04 07/27/2020 16:43 KTDA VS-HT/WT Time: 07/27/2020 16:04 07/27/2020 16:43 KTDA VS-Visual Time: 07/27/2020 16:04 07/27/2020 16:43 KTDA VS-FHT Time: 07/27/2020 16:04 07/27/2020 16:43 KTDA VS-Notes Time: 07/27/2020 16:04 07/27/2020 16:43 KTDA ORDERS Admit patient 07/27/2020 18:08 N/A [facility] PATIENT NAME: ANDRE BLANCA [facility] Dr. Andrea MEDICAL REC #: [id number] [place] [address] EMERGENCY DEPARTMENT REPORT EMERGENCY DEPARTMENT PHYSICIAN Ordered: 07/27/2020 17:55 By . Other Reviewed: 07/27/2020 18:08 By . Other COVID-19 07/27/2020 20:18 N/A Ordered: 07/27/2020 17:16 By Juan Manuel Skelton Completed Time: 07/27/2020 20:18 By Juan Manuel Skelton Noted Time: 07/27/2020 17:26 KTDA Results Time: 07/27/2020 20:18 Albuterol-Ipratropium (DUONEB) aerosol 2.5-0.5mg x 1 then Albuterol aerosol 2.5 mg continuous x 2 07/27/2020 17:22 N/A Ordered: 07/27/2020 16:27 By Juan Manuel Skelton Completed Time: 07/27/2020 17:22 By Juan Manuel Skelton CXR portable 07/27/2020 17:15 N/A Ordered: 07/27/2020 16:27 By Juan Manuel Skelton Completed Time: 07/27/2020 17:15 By Juan Manuel Skelton Indication: Hypoxia Noted Time: 07/27/2020 17:02 Zofran (IV)*(2mg/ml) DOSE: 4 mg IV 07/27/2020 16:31 N/A Ordered: 07/27/2020 16:00 By Juan Manuel Skelton Completed Time: 07/27/2020 16:18 By Juan Manuel Skelton Noted Time: 07/27/2020 16:13 KTDA CLINICAL ADMINISTRATOR ORDER: GFRP 07/27/2020 15:32 None Ordered: 07/27/2020 15:32 Completed Time: 07/27/2020 15:32 Results Time: 07/27/2020 15:32 Zofran (IV)*(2mg/ml) DOSE: 4 mg IV 07/27/2020 15:13 N/A Ordered: 07/27/2020 14:57 By Juan Manuel Skelton Completed Time: 07/27/2020 15:12 By Juan Manuel Skelton IV NS bolus 1L over 60 min 07/27/2020 18:37 N/A Ordered: 07/27/2020 14:10 By Juan Manuel Skelton Completed Time: 07/27/2020 18:[address] [facility] PATIENT NAME: ANDRE BLANCA [facility] Dr. Andrea MEDICAL REC #: [id number] [place] [address] EMERGENCY DEPARTMENT REPORT EMERGENCY DEPARTMENT PHYSICIAN Noted Time: 07/27/2020 15:13 LMSB CBC with diff 07/27/2020 15:19 N/A Ordered: 07/27/2020 14:10 By Juan Manuel Skelton Completed Time: 07/27/2020 15:19 By Juan Manuel Skelton Noted Time: 07/27/2020 15:13 LMSB Results Time: 07/27/2020 15:19 BMP 07/27/2020 15:32 N/A Ordered: 07/27/2020 14:10 By Juan Manuel Skelton Completed Time: 07/27/2020 15:32 By Juan Manuel Skelton Noted Time: 07/27/2020 15:13 LMSB Results Time: 07/27/2020 15:32 CT C-spine w/o con 07/27/2020 15:31 N/A Ordered: 07/27/2020 14:10 By Juan Manuel Skelton Completed Time: 07/27/2020 15:31 By Juan Manuel Skelton Indication: Syncope Noted Time: 07/27/2020 14:51 CT head/brain w/o con 07/27/2020 15:27 N/A Ordered: 07/27/2020 14:10 By Juan Manuel Skelton Completed Time: 07/27/2020 15:27 By Juan Manuel Skelton Indication: Syncope Noted Time: 07/27/2020 14:51 EKG and most recent EKG 07/27/2020 14:29 N/A Ordered: 07/27/2020 14:10 By Juan Manuel Skelton Completed Time: 07/27/2020 14:29 By Juan Manuel Skelton Noted Time: 07/27/2020 14:23 JOSELIN Sitter not required (no current suicidal intent/plan) 07/27/2020 15:17 N/A Ordered: 07/27/2020 15:15 By Juan Manuel Skelton Cancelled: 07/27/2020 15:17 [facility] Cancelled Reason: Wrong patient Consult Psych Triage 07/27/2020 15:17 N/A Ordered: 07/27/2020 15:[address] [facility] PATIENT NAME: ANDRE BLANCA [address] [facility] [address] Andrea MEDICAL REC #: [id number] [place] [address] EMERGENCY DEPARTMENT REPORT EMERGENCY DEPARTMENT PHYSICIAN Cancelled: 07/27/2020 15:17 [facility] Cancelled Reason: Wrong patient DISCHARGE Diagnosis: Acute exacerbation of COPD with hypoxia, Acute left lobe pneumonia with suspected COVID-19 pneumonitis, Acute syncopal episode, Acute cervical strain 07/27/2020 17:55 Disposition: Time: 07/27/2020 17:55 Discharge Time: 07/27/2020 22:50 Type: Admission Condition: Stable for admission/discharge/tr ansfer after emergency evaluation/treatment Category: *NOT APPLICABLE Referral: 07/27/2020 17:55 Admit To: *Bed Type - Telemetry Admit Physician: Carmela Terrazasists PRESCRIPTIONS CHARGES SIGNATURE Juan Manuel Skelton MD [facility] LOURDES AGGARWAL RN LUIS [facility] MEDIC JOSELIN [employer] VL BHARAT BALLESTEROS RN KTEDGARDO CHUNG RN LMSB JAMAAL HAWKINS [facility] PATIENT NAME: ANDRE BLANCA [facility] Dr. Andrea MEDICAL REC #: [id number] [place] [address] EMERGENCY DEPARTMENT REPORT EMERGENCY DEPARTMENT PHYSICIAN Normal [facility] 07-28-2020 Albumin [Mass/Vol] 3.7 g/dL Normal 3.2-5.0 [facility] Comment on above: Order Comment: Campu s: M Performed By: #### L [id number] ####[facility] [id number] [place], [place] [address]Nj# [phone] Albumin/Globulin [Mass ratio] 1.2 {ratio} Normal 0.8-2.0 [facility] Comment on above: Order Comment: Campu s: M Performed By: #### L 500.25001 ####[facility] [id number] [place], [place] [address]Nf# [phone] ALK PHOS 132 U/L High 45-117 [facility] Comment on above: Order Comment: Campu s: M Performed By: #### L [id number] ####[facility] [id number] [place], [place] [address]Yi# [phone] ALT [Catalytic activity/Vol] 9 U/L Low 13-61 [facility] Comment on above: Order Comment: Campu s: M Result Comment: RESU LTS MAY BE FALSELY DEPRESSED AFTER THE ADMINISTRATION OF SULFASALAZINE AND/OR SULFAPYRIDINE. Performed By: #### L 500.79139 ####[facility] [id number] [place] [address]Vd# [phone] BILI DIRECT 0.2 MG/DL Normal 0.00-0.36 [facility] Comment on above: Order Comment: Campu s: M Result Comment: NOTE NEW NORMAL RANGE DUE TO REAGENT CHANGE Performed By: #### L 500.81111 ####[address] [address]My# [phone] BILI TOTAL 0.50 MG/DL Normal 0.2-1.0 [facility] Comment on above: Order Comment: Campu s: M Performed By: #### L 500.01935 ####[facility] [id number] [place] [address]Yr# [phone] Globulin (S) [Mass/Vol] 3.1 g/dL Normal 2.2-4.2 [facility] Comment on above: Order Comment: Campu s: M Performed By: #### L 500.93029 ####[facility] [id number] [place] [address]Dm# [phone] Protein [Mass/Vol] 6.8 g/dL Normal 6.0-8.5 [facility] Comment on above: Order Comment: Campu s: M Performed By: #### L 500.63941 ####[facility] [id number] [place] [address]Ys# [phone] SGOT (AST) 19 U/L Normal 8-34 [facility] Comment on above: Order Comment: Campu s: M Result Comment: RESU LTS MAY BE FALSELY DEPRESSED AFTER THE ADMINISTRATION OF SULFASALAZINE AND/OR SULFAPYRIDINE. Performed By: #### L 500.44559 ####[facility] [id number] [place], [place] [address]Yw# [phone] Katina 07-28-2020 OT Assessment Report Normal [facility] [place] HINDS Occupational Therapy Inpatient Evaluation Medical Diagnosis: 1. Acute hypoxemic respiratory failure 2. Syncope OCCUPATIONAL PROFILE AND HISTORY Therapy Diagnosis: Rank Code Description 1 Z74.1 Need for assistance with personal care 2 R06.02 Shortness of breath 3 R26.81 Unsteadiness on feet 4 R55 Syncope and collapse Demographics: Age: 70Y Gender: Female Primary Language: Estonian Preferred Language: Estonian Referring Service/Team: Medicine Past Medical History: PMHx: Chronic COPD, Hx CVA prior without deficits but prior had L sided weakness, Hypothyroidism, Hx Migraines, Bipolar Disorder, IBS, Obesity. Past Surgical History Hysterectomy, appendectomy, right upper extremity surgery, cholecystectomy. History of Present Illness: 07/27/20 Additional Information: Chief Complaint/Present Illness: Syncope History of Present Illness 70-year-old female, primary care through [facility], past medical history CVA, hypothyroidism, COPD not on home oxygen, recurrent syncopal episodes in the past that she states have been worked up by her physicians at the [facility], testing done at the [facility] and here at [facility], concluding that she has "low blood pressure". She does not feel like her syncopal episode correlate to any activity. Today she had a syncopal episode when she was standing up to go use the restroom. Over the last 5 to 6 days she has developed viral symptoms of diarrhea, shortness of breath, decreased appetite, headache, sore throat, myalgias. ED vitals temperature 98.1, heart rate 91, respiratory rate 22, blood pressure 127/66, SPO2 95% room air. However she did become hypoxic in the emergency department with SPO2 of 85% on room air. When I see the patient she is on 2 L of oxygen with SPO2 94%. ED work-up EKG which I personally reviewed shows normal sinus rhythm with right bundle [facility] PATIENT NAME: ANDRE BLANCA [facility] Dr. Andrea MEDICAL REC #: [id number] [place] [address] ADMIT DATE: 07/27/20 SERVICE DATE: 07/28/20 Occupational Therapy Assessment ATTENDING PHY: Marta Horvath DO branch block which is pre-existing. Chest x-ray shows a left lower lobe infiltrate. I personally reviewed the chest x-ray, there is no obvious lobular infiltrate. I saw the patient in ER room 37, she sitting up in bed, she is the historian and seems to be reliable historian. Date of Admission: 07/27/2020 5:37:00 PM Rehabilitation Precautions/Restrictio ns: monitor BP fall risk Imaging/Testing Results from Chart: Recent Impressions COMPUTERIZED TOMOGRAPHY - CT HEAD/BRAIN W/O CON 07/27 1440 Report Impression - Status: SIGNED Entered: 07/27/2020 1524 IMPRESSION: No acute intracranial abnormality. Stable age-related and chronic ischemic changes. Impression By: CIRO HOUSTON M.D. COMPUTERIZED TOMOGRAPHY - CT CERVICAL SP. W/O CON 07/27 1440 Report Impression - Status: SIGNED Entered: 07/27/2020 1528 IMPRESSION: No acute osseous abnormality. Multilevel degenerative disk disease and facet arthropathy Impression By: CIRO HOUSTON M.D. RADIOLOGY - PORTABLE CHEST 07/27 1637 Report Impression - Status: SIGNED Entered: 07/27/2020 1713 IMPRESSION: Hazy opacity at the left lung base, possible atelectasis versus early Prior Level of Functioning: Self Care: Patient completed the activities by him/herself, with or without an assistive device, with no assistance from a helper. Functional Cognition: Patient needed partial assistance from another person to complete activities. TENTER WAS INDEPENDENT W/ SELF CARE USING ROLLATOR FOR MOBILITY. SHE WAS HAVING AIDE COME 5 DAYS A WK FOR 2 HOURS A DAY TO ASSIST W/ HOUSEWORK BUT AIDE GOT ANOTHER JOB AND THEY HAVE NOT REPLACED HER WITH ANYONE ELSE. Patient/Caregiver Goals: Patient's functional goals: BE ABLE TO MANAGE AT HOME W/O FALLING [facility] PATIENT NAME: ANDRE BLANCA [facility] Dr. Andrea MEDICAL REC #: [id number] [place] [address] ADMIT DATE: 07/27/20 SERVICE DATE: 07/28/20 Occupational Therapy Assessment ATTENDING DAMIAN: Marta Horvath DO Pain: Patient currently has pain. Location: R ARM SORE FROM FLU SHOT Type: Acute Quality: Tender. Pain Scale: Visual Analog (VAS). Patient reports a pain level of 4 out of 10. Patient's acceptable level of pain 0 out of 10. Interferes with physical activity. Pain is alleviated by: RESTING THE ARM Pain is exacerbated by: USING IT Interventions: Repositioned patient. Home Environment: Patient lives alone. Patient lives in an apartment. Home is single level. Patient is not required to manage stairs within the home. First floor full bathroom setup available. BATH IS TUB/SHOWER No stairs to enter the home. There is no ramp available to enter home. Equipment Owned:GROUND FLOOR APT W/ ELEVATOR ACCESS TO LAUNDRY ON 2ND FLOOR. 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, SOCK SIDE, HOSPITAL BED Marital Status: W Social History: Children: 2 Reside: 1 local, 1 Employment Status: not employed Recreational Activities/Hobbies: Crocheting, knitting, watching TV, board games OBJECTIVE/OCCUPATIONAL PERFORMANCE Activities of Daily Living Current Status Previous Status ADLs Feeding Independent - Grooming Supervision - Bathing-UE Supervision - Bathing-LE Minimal assistance - Dressing-UE Supervision - Dressing-LE Minimal assistance - Toileting Minimal assistance - AM-PAC Daily Activities: Putting On/Taking Off Lower Body Clothing: A little help needed Bathing:: A little help needed Toileting: A little help needed Putting On/Taking Off Upper Body Clothing: A little help needed Grooming: A little help needed Eating a Meal: No help needed Raw Score = 19 , AM-PAC t-Scale Score = 40.22 and G-Code Modifier = CK [facility] PATIENT NAME: ANDRE BLANCA [facility] Dr. Andrea MEDICAL REC #: [id number] [place] [address] ADMIT DATE: 07/27/20 SERVICE DATE: 07/28/20 Occupational Therapy Assessment ATTENDING GIRISHY: Marta Horvath DO Functional Mobility: Bed Mobility: SBA Transfers: Patient transferred sit to/from stand requiring minimal assistance of 1 person. Patient used the following equipment: Bed rails. MIN TO SBA BUT C/O SIGNIFICANT DIZZINESS AND ORTHOSTATICS JUST TAKEN BY AIDE AND FOUND TO BE LOW ESPECIALLY IN STANDING Locomotion/Gait/Ambula tion: Patient was contact guard with gait/ambulation of 1 person for SHORT DISTANCE FUNCTIONAL MOBILITY . Patient requires the following assistive device(s): Rolling walker. DISTANCE LIMITED D/T DIZZINESS Range of Motion Upper Extremity: LACKS FULL SHOULDER ROM D/T SORENESS. DISTAL ARM AROM IS WFL Strength Upper Extremity: SHOULDER FAIR- R MORE THAN L. DISTAL ARM STRENGTH GOOD- Balance: Static balance in a standing position is fair. Dynamic balance in a standing position is poor. D/T DIZZINESS Tone/Spasticity: No relevant impairments. Sensation: Grossly intact. Fine Motor Coordination: Fine motor coordination was not assessed. Gross Motor Coordination: Upper extremity gross motor coordination is intact. Edema: No edema is present. Lower Extremity Function: mild LE weakness Vision: Within functional limits. Cognition: Within functional limits. Perceptual Skills: Within functional limits. Psychosocial: Within normal limits Interventions: Evaluation LOW Complexity No treatment provided today. Pain Reassessment: Increase in pain during session. w/ raising arms Education: The patient's preferred learning method is: Explanation, Demonstration Barriers to Learning: Acuity of illness, Mobility Learning Needs: Precautions. Plan of care. Safety. Respiratory function. Functional activities/mobility. Equipment. [facility] PATIENT NAME: ANDRE BLANCA [facility] Dr. Andrea MEDICAL REC #: [id number] [place] [address] ADMIT DATE: 07/27/20 SERVICE DATE: 07/28/20 Occupational Therapy Assessment ATTENDING PHY: Marta Horvath DO Education Provided: Plan of care. Activities of daily living. Bed mobility. Functional transfers. Audience: Patient. Mode: Explanation. Demonstration. Response: Verbalized understanding. Needs reinforcement. ASSESSMENT Clinical Performance Deficits: Impaired ADLs, Impaired instrumental ADLs, Impaired functional mobility, Decreased strength, Limited activity tolerance, Impaired balance, Pain, Impaired transfers Equipment Recommended: TBD- requesting w/c to be safer and not fall at home when having dizzy episodes Rehabilitation Potential: Good Motivation/Commitment to Therapy: Good. Response to Evaluation: Tolerated OT eval fair. Pt short of breath and dizzy when up. She requires min assist self care, transfers and short distance functional mobility. Anticipate pt should be able to return home w/ [facility] OT if dizziness and low BP can be better controlled. Will continue to see as planned. Treatment Goals: Time frame to achieve treatment goal(s): 5x a wk until d/c 1. MOD I SELF CARE 2. MOD I FUNCTIONAL TRANSFERS 3. MOD I FUNCTIONAL MOBILITY FOR GETTING AROUND THE HOUSE 4. IMPROVED STRENGTH/PULMONARY ENDURANCE TO DO ADL PROJECTED WHILE MAINTAINING O2 SATS ABOVE 92 5. MOD I MIN CHALLENGE STANDING TASKS STANDING FOR UP TO 10 MIN AT A TIME W/ MINIMAL TO NO C/O DIZZINESS 6. PT/FAMILY WILL BE INSTRUCTED IN D/C RECOMMENDATIONS,HOME SAFETY,ADAPTIVE TECHNIQUES/EQUIPMENT AND DEMO UNDERSTANDING FOR FOLLOW THROUGH PLAN Treatment Frequency, Duration and Interventions: Occupational Therapy is recommended for 5X A WK UNTIL D/C Occupational Therapy treatment is to include: ADL TRAINING, TRANSFER TRAINING, STANDING BALANCE/ENDURANCE TRAINING, FUNCTIONAL MOBILITY TRAINING, STRENGTHENING,GRADED THERAPEUTIC EXERCISES/ACTIVITIES,P T/FAMILY EDUCATION Recommended Occupational Therapy Follow Up: Upon acute care discharge, the following is currently recommended: Home health care Occupational Therapy. Recommended Consults: None currently. Development of Plan of Care: Patient participated in plan of care development [facility] PATIENT NAME: ANDRE BLANCA Dr. Andrea MEDICAL REC #: [id number] [place] [address] ADMIT DATE: 07/27/20 SERVICE DATE: 07/28/20 Occupational Therapy Assessment ATTENDING PHY: Marta Horvath DO today. If there are any questions regarding this service, please contact the Acute Therapy Department at extension [phone] CARE WILL BE TRANSFERRED TO THE (CHOICE OF ACUTE OR REHAB) OCCUPATIONAL THERAPIST" Communication to Nursing: No updates at this time. Location of Patient at End of Therapy Session: In bed, without bed alarm, call light within reach Services: Total Billed: 0 minutes (Timed: 0, Untimed: 0) 0.00 Untimed: [39368] OT-EVALUATION LOW COMPLEXITY 0.00 Untimed: [] OT Evaluation ORDER 0.00 Untimed: [] OT Treatment General ORDER Signed by: KASEY MINAYA 07/28/2020 15:43:51 [facility] PATIENT NAME: ANDRE BLANCA Dr. Andrea MEDICAL REC #: [id number] [place] [address] ADMIT DATE: 07/27/20 SERVICE DATE: 07/28/20 Occupational Therapy Assessment ATTENDING PHY: Marta Horvath DO Normal [facility] OTPNon 07-28-2020 OT Progress Note Normal [facility] OTPN Occupational Therapy Inpatient Missed Visit Note Location: Bedside. Attempted to visit patient for therapy, but was unable for the following reasons: Testing: off the unit at cardiac diagnostics Return Plan: Will return as soon as possible for another attempt. If there are any questions regarding this service, please contact the Acute Therapy Department at extension [phone] Signed by: PATRICIA ARANA OTR/Asuncion 07/28/2020 13:48:54 [facility] PATIENT NAME: ANDRE BLANCA [facility] Dr. Andrea MEDICAL REC #: [id number] [place] [address] ADMIT DATE: 07/27/20 SERVICE DATE: 07/28/20 Occupational Therapy Progress Note ATTENDING PHY: Marta Horvath DO [facility] Patient Name: ANDRE BLANCA [address] Date of : [address] [place], [place] [address] Unit Number: [id number] Progress Note-Hospitalist Patient Status: ADM IN Attending Doctor: Marta Horvath DO Service Date: 07/28/20 1433 Chief Complaint Chief Complaint Syncope Subjective S: (2 ROS minimum) Patient seen and examined at bedside, states she is feeling better, is eating meals, states in the past her work-up for syncope she thinks she was told to wear CRUZ hose, denies any chest pain or pressure, is feeling a little short of breath, does have a cough productive of green sputum Objective (ROS) Nursing Vitals Vital Signs (Last) Result Date Time Pulse Ox 89 07/28 1058 B/P 91/38 07/28 1058 O2 Delivery NASAL CANNULA 07/28 1058 O2 Flow Rate 2 07/28 1058 Temp 98.1 07/28 1058 Pulse 83 07/28 1058 Resp 14 07/28 1058 General Appearance elderly, obese Physical Exam Neurological / Psychiatric Alert, Orientation X1, Orientation X2, Orientation X3, Affect Normal Respiratory Normal Breathing Effort, Clear Lungs Cardiovascular Heart RRR, No M / R / G Gastrointestinal Normal Bowel Sounds, Non Tender Skin Warm / Dry Diagnostic Data: Lab 24hr (CBC/BMP Fishbone) 07/28/20 0542: TSH, Ultra Sensitive 68.605 H 07/28/20 0032: Troponin I Less than 2.5 07/28/20 0032: Thyroxine (T4) 4.8, T3 Uptake 33.4 07/28/20 0032: Total Bilirubin 0.50, Direct Bilirubin 0.2, AST 19, ALT 9 L, Alkaline Phosphatase 132 H, Serum Total Protein 6.8, Albumin 3.7, Globulin 3.1, Albumin/Globulin Ratio 1.2, D-Dimer 660.0 H 07/27/20 1716: SARS-CoV-2 (PCR) NOT DETECTED 07/27/20 1511: [Embedded Image Not Available] Anion Gap 9, Est GFR ( Amer) Greater than 60, Est GFR (Non-Af Amer) 51, BUN/ Creatinine Ratio 10 L, Glucose 136 H, Total Calcium 9.7, RBC 4.73, MCV 89.0, MCHC 33.0, RDW 14.2, MPV 10.2, Immature Gran % (Auto) 0.3, Abs Immat Gran (auto) 0.00, Seg Neutrophils % 76.3 H, Lymphocytes % 14.1 L, Monocytes % 6.2, Eosinophils % 2.3, Basophils % 0.8, Neutrophils # 7.60, Lymphocytes # 1.40, Monocytes # 0.60, Eosinophils # 0.20, Basophils # 0.10, Nucleated RBCs 0.0 Assessment and Plan Conclusion 1. Acute hypoxemic respiratory failure 2. Pneumonia 3. COPD (chronic obstructive pulmonary disease) 4. Syncope 5. Bipolar disorder 6. Multiple falls 7. Hypothyroidism Acute hypoxic respiratory failure 2/2 pneumonia --continue supplemental O2, maintain spO2 >92%, wean as able --cont empiric rocephin --check urinary antigens, sputum culture --duonebs scheduled and as needed Syncope; Orthostatic hypotension --Echo reviewed, diastolic dysfunction noted --Patient did receive 1 L lactated Ringer's --We will repeat orthostatics --Compression hose Hypothyroidism; depression; bipolar disorder --Continue home medications h/o CVA --Continue secondary prevention GI/DVT ppx: Protonix, Lovenox Disclaimer This dictation was created using voice recognition software. Phonetic and/or minor grammatical errors may exist. eSign Date and Time Sindhu Briscoe DO Verified/Reviewed by 07/28/20 1441 [facility] Progress Note-Hospitalist [facility] PTARon 07-28-2020 PT Assessment Report Normal [facility] PTAR Physical Therapy Inpatient Evaluation Medical Diagnosis: 1. Acute hypoxemic respiratory failure 2. Syncope 3. Hypothyroidism Therapy Diagnosis: Rank Code Description 1 R26 Abnormalities of gait and mobility 2 R53.1 Weakness Demographics: Age: 70Y Gender: Female Primary Language: Estonian Preferred Language: Estonian Referring Service/Team: Medicine Past Medical History: Chronic knee pain History of CVA, some difficulty swallowing some foods however otherwise no residual deficits COPD, not on home O2 Hypothyroidism Irritable bowel syndrome Migraines Fibromyalgia Hypotension, as a cause of recurrent syncope Past Surgical History Hysterectomy Right arm surgery Ingrown toenail Cholecystectomy History of Present Illness: Date of Onset: 07/27/20 Additional Information: 70-year-old female, [facility] care through [facility], past medical history CVA, hypothyroidism, COPD not on home oxygen, recurrent syncopal episodes in the past that she states have been worked up by her physicians at the [facility], testing done at the [facility] and here at [facility], concluding that she has "low blood pressure". She does not feel like her syncopal episode correlate to any activity. Today she had a syncopal episode when she was standing up to go use the restroom. Over the last 5 to 6 days she has developed viral symptoms of diarrhea, shortness of breath, decreased appetite, headache, sore throat, myalgias. ED vitals temperature 98.1, heart rate 91, respiratory rate 22, blood pressure [facility] PATIENT NAME: ANDRE BLANCA [facility] Dr. Andrea MEDICAL REC #: [id number] [place] [address] ADMIT DATE: 07/27/20 SERVICE DATE: 07/28/20 Physical Therapy Assessment Report ATTENDING GIRISHY: Marta Horvath DO 127/66, SPO2 95% room air. However she did become hypoxic in the emergency department with SPO2 of 85% on room air. When I see the patient she is on 2 L of oxygen with SPO2 94%. ED work-up EKG which I personally reviewed shows normal sinus rhythm with right bundle branch block which is pre-existing. Chest x-ray shows a left lower lobe infiltrate. I personally reviewed the chest x-ray, there is no obvious lobular infiltrate. *per medical charting Date of Admission: 07/27/2020 5:37:00 PM Rehabilitation Precautions/Restrictio ns: Fall Risk Safety Imaging/Testing Results from Chart: SUBJECTIVE Prior Level of Functioning: Indoor Mobility: Patient completed the activities by him/herself, with or without an assistive device, with no assistance from a helper. Stairs: Not applicable (activity was not applicable to the patient prior to the current illness, exacerbation, or injury). Pt requires assist from friend for transportation and provides grocery Prior Device Use: Performance GG110. Prior Device Walker Yes Patient/Caregiver Goals: Patient's functional goals: go home Pain: Patient currently has pain. Location: left shoulder and neck Type: Acute Quality: Aching. Pain Scale: Visual Analog (VAS). Patient reports a pain level of 8 out of 10. Patient's acceptable level of pain 0 out of 10. Pain does not interfere with any activity at this time. Pain is alleviated by: rest, meds Pain is exacerbated by: movement Interventions: Repositioned patient. Home Environment: Patient lives alone. Patient lives in an apartment. Home is single level. Patient is not required to manage stairs within the home. First floor full bathroom setup available. No stairs to enter the home. There is no ramp available to enter home. Equipment Owned: tub/shower with shower chair and grab bars, toilet grab bar, canes, rollator Social History: Marital Status: W [facility] PATIENT NAME: ANDRE BLANCA [facility] Dr. Andrea MEDICAL REC #: [id number] [place] [address] ADMIT DATE: 07/27/20 SERVICE DATE: 07/28/20 Physical Therapy Assessment Report ATTENDING PHY: Marta Horvath DO Children: 2 Reside: 1 local, 1 Employment Status: not employed Recreational Activities/Hobbies: watching TV OBJECTIVE Cognitive Screen Responsiveness: Alert. Orientation: Oriented to person, place, time, and situation. Following Commands: Patient is able to follow 1-step commands. Range of Motion Lower Extremity: Grossly within functional limits Strength Lower Extremity: Not within functional limits good grossly with transfers Tone/Spasticity: No relevant impairments. Sensation: Grossly intact. Balance: Dynamic balance in a seated position is good. Dynamic balance in a standing position is good. Therapeutic/Functional Activities: Bed Mobility: Patient moves from supine to/from sit requiring supervision. Transfers: Patient transferred sit to/from stand requiring minimal assistance of 1 person. reports some dizziness with initial sitting and standing. Patient transferred bed to chair to the left requiring minimal assistance of 1 person. Patient used the following equipment: Rolling walker. slow pace; flexed posture; fatigue Locomotion/Gait/Ambula tion: Patient was minimal assist with gait/ambulation of 1 person for 3 feet . Patient requires the following assistive device(s): Rolling walker. small steps; requires cues for safety with WW management Gait Deviations: Stairs: Not assessed. AM-PAC Basic Mobility: Turning Over in Bed: A little difficulty Sitting/Standing Chair with Arms: A little difficulty Lying on Back to Sitting on Side of Bed: A little difficulty Moving To/From Bed to Chair: A little help needed Walking in Hospital Room: A little help needed Climbing 3-5 Steps with Railing: A lot of help needed Raw Score = 17 , AM-PAC t-Scale Score = 42.13 and G-Code Modifier = CK Vital Signs: [facility] PATIENT NAME: ANDRE BLANCA [facility] Dr. Andrea MEDICAL REC #: [id number] [place] [address] ADMIT DATE: 07/27/20 SERVICE DATE: 07/28/20 Physical Therapy Assessment Report ATTENDING PHY: Marta Horvath DO Not assessed. Interventions: Evaluation MOD Complexity No treatment provided today. Pain Reassessment: No significant change in pain during session. Education: The patient's preferred learning method is: Explanation, Demonstration Barriers to Learning: Acuity of illness Learning Needs: Plan of care. Rehabilitation techniques and procedures. Education Provided: Plan of care. Rehab techniques and procedures. Audience: Patient. Mode: Explanation. Demonstration. Response: Verbalized understanding. Needs practice. ASSESSMENT Problem List: Decreased endurance, Difficulty with prolonged standing, Impaired activities of daily living, Impaired ambulation, Impaired balance, Impaired bed mobility, Impaired stair/curb negotiation, Impaired transfers Strengths: Independent premorbid function, Social/family support, Motivated to improve function Rehabilitation Potential: Good Motivation/Commitment to Therapy: Good. Response to Evaluation: Pt tolerated therapy session fair; demo's decreased endurance and balance. Pt demo's shortness of breath when O2 removed; normally does not wear O2 at home. Pt will benefit from continued PT services to imrpove functional mobility and independence. recommend inpatient PT <60 min/day at hospital discharge Activity/Participation Problem List and Goals: No activity/participation limitations. Treatment Goals: Time frame to achieve treatment goal(s): 2 weeks 1. Pt transfer MOD I 2. Pt ambulate at least 50 feet WW MOD I 3. Demo independence with LE thex for endurance and strengthening PLAN Treatment Frequency, Duration and Interventions: Physical Therapy is recommended for 5x/week x2 weeks Physical Therapy treatment is to include: gait, transfes, endurance, balance, safety Recommended Physical Therapy Follow Up: Upon acute care discharge, the following is currently recommended: Inpatient Physical Therapy, LESS THAN 60 minutes per day. Recommended Equipment: Rolling walker. . Recommended Consults: None currently. [facility] MEDICAL REC #: [id number] [place] [address] ADMIT DATE: 07/27/20 SERVICE DATE: 07/28/20 Physical Therapy Assessment Report ATTENDING PHY: Marta Horvath DO Development of Plan of Care: Patient participated in plan of care development today. If there are any questions regarding this service, please contact the Acute Therapy Department at extension [phone] Location of Patient at End of Therapy Session: In chair, call light within reach Services: Total Billed: 0 minutes (Timed: 0, Untimed: 0) 0.00 Untimed: [34932] PT-EVALUATION MOD COMPLEX 0.00 Untimed: [] PT Evaluation ORDER 0.00 Untimed: [] PT Treatment- General ORDER Signed by: SINDHU MONTANEZ PT 07/28/2020 16:23:52 [facility] PAT[facility] MEDICAL REC #: [id number] [place] [address] ADMIT DATE: 07/27/20 SERVICE DATE: 07/28/20 Physical Therapy Assessment Report ATTENDING PHY: Marta Horvath DO Normal [facility] THY FUNC TESTSon 07-28-2020 T3 UP 33.4 % Normal 30-39 [facility] Comment on above: Order Comment: Maciel s: M Minimal Draw: Y Performed By: #### L 500.60216, L500.18758 #### [facility] [address] [place] [address] T4 [Mass/Vol] 4.8 ug/dL Normal 4.8-13.9 [facility] Comment on above: Order Comment: Maciel joe: Ramiro Minimal Draw: Y Result Comment: RESU LTS MAY BE FALSELY ELEVATED AFTER THE ADMINISTRATION OF SULFASALAZINE. Performed By: #### L 500.12241, L500.48477 #### [facility] [place] [address] TROPONIN Ion 07-28-2020 Troponin I.cardiac [Mass/Vol] 2.5 ng/mL Normal 0-34 [facility] Comment on above: Order Comment: Maciel s: M Result Comment: NOTE NEW NORMAL RANGE DUE TO REAGENT CHANGE This assay uses different antibodies than our current assay, and assays, even by the same authorization coordinator may recognize different regions of the antibody and cannot be used interchangeably. Expect results of this assay to run higher than the previous assay. Performed By: #### L 200.89324 #### [facility] [address] [place] [id number] TSHon 07-28-2020 TSH Qn 68.605 UIU/ML High 0.358-3.740 [facility] Comment on above: Order Comment: Maciel joe: Ramiro What is the source? URINE Result Comment: 3rd generation ultra sensitive TSH Performed By: #### M 150.57083, M150.22781 #### [facility] [address] [place] [id number] ABDOMEN OR KUBon 07-27-2020 ABDOMEN OR KUB ABDOMEN OR KUB Ordering Physician: Jerry Terrell 08/05/2020 10:04 AM ABDOMEN Clinical Statement: Enteric tube placement Comparison: August 04, 2020 FINDINGS: There is an enteric tube in place with its tip in the expected location of the stomach. This is unchanged from the previous day. Examination is otherwise nondiagnostic. IMPRESSION: Appropriate position of the enteric tube. ---- Electronic Signature on File ---- Signed By: Dimitrios Cabrera MD [email or web address] Dictated: 08/05/2020 10:41 AM Signed: 08/05/2020 10:42 AM Reported By: DIMITRIOS CABRERA M.D. Signed By: DIMITRIOS CABRERA M.D. [facility] ABDOMEN OR KUB History: Enteric tub e placement Result/ Impression: The tip of the enteric tube is below the diaphragm, over the location of the gastric antrum. The stomach and some of the central small bowel bowel segments appear distended; evaluation is limited on this portable radiograph; bowel obstruction is not excluded. Please correlate clinically. Surgical clips are seen in the right upper quadrant. This report was electronically signed by Deuce Alonzo 08/04/2020 9:49 PM Reported By: DEUCE ALONZO MD Signed By: DEUCE ALONZO MD [facility] ABDOMEN OR KUB ABDOMEN OR KUB Ordering Physician: Jerry Terrell 08/14/2020 5:22 PM SUPINE ABDOMEN: Clinical Statement: Enteric tube placement Comparison: 08/06/2020 FINDINGS: The tip of the OG tube extends into the mid to distal stomach. There is no abnormal gaseous distention. IMPRESSION: The tip of the OG tube is in the mid to distal stomach. Dictated by Repair Department Manager: Almas Jimenez DO Reviewed and Signed by: Dipesh Patiño MD FACR ---- Electronic Signature on File ---- Signed By: Dipesh Patiño MD FACR [email or web address] Dictated: 08/14/2020 5:38 PM Signed: 08/14/2020 5:41 PM Reported By: DIPESH PATIÑO M.D. Signed By: DIPESH PATIÑO M.D. [facility] ABDOM[facility] OR KUB Ordering Physician: Morris Alonso MD 08/06/2020 12:35 PM ABDOMEN Clinical Statement: NG tube placement FINDINGS: A portable abdominal image was obtained and compared to a previous study dated 08/05/2020. There is an enteric tube in the proximal stomach with the tip extending superiorly to the region of the gastric cardia. There is no abnormal gaseous distention. There is atelectasis in the left midlung. IMPRESSION: The enteric tube is in the proximal stomach with the tip extending superiorly. ---- Electronic Signature on File ---- Signed By: Dipesh Patiño MD FACR [email or web address] Dictated: 08/06/2020 12:56 PM Signed: 08/06/2020 12:57 PM Reported By: DIPESH PATIÑO M.D. Signed By: DIPESH PATIÑO M.D. [facility] ABDOMEN OR KUB ABDOMEN OR KUB Ordering Physician: Sabrina Saha 08/04/2020 4:43 PM ABDOMEN Clinical Statement: Nausea and vomiting Comparison: January 24, 2018 FINDINGS: The examination is limited by large body habitus. Some gas is demonstrated in the colon and likely at the rectum. No definite free air or fluid is demonstrated. IMPRESSION: Limited study. The small amount of air is demonstrated in the colon. There is otherwise a paucity of bowel gas. ---- Electronic Signature on File ---- Signed By: Dimitrios Cabrera MD [email or web address] Dictated: 08/04/2020 5:19 PM Signed: 08/04/2020 5:22 PM Reported By: DIMITRIOS CABRERA M.D. Signed By: DIMITRIOS CABRERA M.D. [facility] 07-27-2020 Anion gap [Moles/Vol] 9 mmol/L Normal 5-16 [facility] Comment on above: Order Comment: Campu s: M Performed By: #### L 200.35282 #### [facility] [place] [address] Calcium [Mass/Vol] 9.7 mg/dL Normal 8.5-10.5 [facility] Comment on above: Order Comment: Campu s: M Result Comment: NOTE NEW NORMAL RANGE DUE TO REAGENT CHANGE Performed By: #### L 200.89478 #### [facility] [address] [place] [address] Chloride [Moles/Vol] 105 mmol/L Normal 98-107 [facility] Comment on above: Order Comment: Campu s: M Performed By: #### L 200.77940 #### [facility] [address] [place] [address] CO2 [Moles/Vol] 26.0 mmol/L Normal 21-32 [facility] Comment on above: Order Comment: Campu s: M Performed By: #### L 200.88807 #### [facility] [address] [place] [address] Creatinine [Mass/Vol] 1.06 mg/dL High 0.510-0.950 [facility] Comment on above: Order Comment: Campu s: M Result Comment: Geraldine ents receiving either N-Acetylcysteine (NAC) or Metamizole prior to venipuncture, may have falsely depressed results. Performed By: #### L 200.31327 #### [facility] [address] [place], [place] [id number] Glucose [Mass/Vol] 136 mg/dL High 70-100 [facility] Comment on above: Order Comment: Campu s: M Result Comment: 70-1 00- Normal Fasting; 100-125 Impaired Fasting; greater than 126 on more than one result- Diabetes. ADA guidelines. Results may be falsely elevated after the administration of Sulfapyridine. Results may be falsely depressed after the administration of Sulfasalazine. Performed By: #### L 200.71739 #### [facility] [place] [id number] Potassium [Moles/Vol] 3.9 mmol/L Normal 3.5-5.1 [facility] Comment on above: Order Comment: Campu s: M Result Comment: Slig ht Hemolysis, Result may be affected. Performed By: #### L 200.84538 #### [facility] [address] [place] [address] Sodium [Moles/Vol] 140 mmol/L Normal 136-145 [facility] Comment on above: Order Comment: Campu s: M Performed By: #### L 200.57344 #### [facility] [address] [place] [address] Urea nitrogen [Mass/Vol] 11 mg/dL Normal 7- [facility] Comment on above: Order Comment: Campu s: M Performed By: #### L .95761 #### [facility] [address] [place] [address] Urea nitrogen/Creatinine [Mass ratio] 10 mg/mg Low 15- [facility] Comment on above: Order Comment: Campu s: M Performed By: #### L .52733 #### [facility] [address] [place] [address] CBC W/DIFFon 07-27-2020 BASO ABS 0.10 K/CU MM Normal 0-0.2 [facility] Comment on above: Order Comment: Campu s: M Performed By: #### L 200.74069 #### [facility] [address] [place] [address] Basophils/100 WBC (Bld) 0.8 % Normal 0-2 [facility] Comment on above: Order Comment: Campu s: M Performed By: #### L 200.77452 #### [facility] LABORATORY [address] [place] [address] EOS ABS 0.20 K/CU MM Normal 0-0.5 [facility] Comment on above: Order Comment: Campu s: M Performed By: #### L [id number] #### [facility] LABORATORY [address] [place], [place] [id number] Eosinophils/100 WBC (Bld) 2.3 % Normal 0-5 [facility] Comment on above: Order Comment: Campu s: M Performed By: #### L [id number] #### [facility] LABORATORY [address] [place] [address] Erythrocyte distribution width (RBC) [Ratio] 14.2 % Normal 11-14.5 [facility] Comment on above: Order Comment: Campu s: M Performed By: #### L [id number] #### [facility] LABORATORY [address] [place] [address] Hematocrit (Bld) [Volume fraction] 42.1 % Normal 35.0-47.0 [facility] Comment on above: Order Comment: Campu s: M Performed By: #### L [id number] #### [facility] LABORATORY [address] [place] [address] Hemoglobin (Bld) [Mass/Vol] 13.9 g/dL Normal 11.5-15.5 [facility] Comment on above: Order Comment: Campu s: M Performed By: #### L [id number] #### [facility] LABORATORY [address] [place] [address] IMMATR GRAN ABS 0.00 K/CU MM Normal Less than 2 [facility] Comment on above: Order Comment: Campu s: M Performed By: #### L [id number] #### [facility] LAB[facility]ATORY [address] [place] [address] IMMATURE GRAN % 0.3 % Normal Less than 2 [facility] Comment on above: Order Comment: Campu s: M Performed By: #### L [id number] #### [facility] LAB[facility]ATORY [address] [place] [address] Lymphocytes (Bld) [#/Vol] 1.40 K/CU MM Normal 0.9-4.4 [facility] Comment on above: Order Comment: Campu s: M Performed By: #### L [id number] #### [facility] LAB[facility]ATORY [address] [place] [address] Lymphocytes/100 WBC (Bld) 14.1 % Low 20-40 [facility] Comment on above: Order Comment: Campu s: M Performed By: #### L [id number] #### [facility]ORY [address] [place] [address] MCHC (RBC) [Mass/Vol] 33.0 g/dL Normal 32.0-36.0 [facility] Comment on above: Order Comment: Campu s: M Performed By: #### L [id number] #### [facility]ATORY [address] [place] [address] MCV (RBC) [Entitic vol] 89.0 fL Normal 80.0-99.0 [facility] Comment on above: Order Comment: Campu s: M Performed By: #### L [id number] #### [facility]ORY [address] [place] [address] MONO ABS 0.60 K/CU MM Normal 0.1-1.1 [facility] Comment on above: Order Comment: Campu s: M Performed By: #### L [id number] #### [facility] LABORATORY [address] [place] [address] Monocytes/100 WBC (Bld) 6.2 % Normal 2-10 [facility] Comment on above: Order Comment: Campu s: M Performed By: #### L [id number] #### [facility] LABORATORY [address] [place] [address] NEUTROPHIL ABS 7.60 K/CU MM Normal 2.0-8.3 [facility] Comment on above: Order Comment: Campu s: M Performed By: #### L [id number] #### [facility] LABORATORY [address] [place] [address] Neutrophils/100 WBC (Bld) 76.3 % High 45-75 [facility] Comment on above: Order Comment: Campu s: M Performed By: #### L [id number] #### [facility] LABORATORY [address] [place] [address] Nucleated RBC/100 WBC (Bld) [Ratio] 0.0 % Normal Less than 1 [facility] Comment on above: Order Comment: Campu s: M Performed By: #### L [id number] #### [facility] LABORATORY [address] [place] [address] Platelet mean volume (Bld) [Entitic vol] 10.2 fL Normal 9.4-12.4 [facility] Comment on above: Order Comment: Campu s: M Performed By: #### L [id number] #### [facility]ORY [address] [place] [address] Platelets (Bld) [#/Vol] 265 K/CU MM Normal 150-450 [facility] Comment on above: Order Comment: Campu s: M Performed By: #### L [id number] #### [facility]ORATORY [address] [place] [address] RBC (Bld) [#/Vol] 4.73 M/CU MM Normal 3.90-5.30 [facility] Comment on above: Order Comment: Campu s: M Performed By: #### L [id number] #### [facility]ATORY [address] [place] [address] WBC (Bld) [#/Vol] 10.0 K/CUMM Normal 4.5-11.0 [facility] Comment on above: Order Comment: Campu s: M Performed By: #### L [id number] #### [facility] LABORATORY [address] [place] [address] CDLECHOon 07-27-2020 LEC [id number] IN ECHOCARD ECHOCARDIOGRAM [place] [address] [facility] Michael.Candy [place], [place] [address] Noninvasive Cardiac Diagnostics Adult Echocardiogram Report Name: ANDRE BLANCA Study Date: 07/28/2020 01:53 PM BP: 123/74 mmHg Patient Location: [id number]: 77 : 1950 Gender: Female Height: 67 in Age: 70 yrs Ethnicity: [place] Weight: 235 lb Accession No. [id number] No. [id number] Reason For Study: SYNCOPE BSA: 2.2 m2 History: CVA or TIA,Lung Disease,Syncope,HYPOTE NSION Interpretation Summary sub optimal study Ejection Fraction = 60-65%. A full diastolic examination was done with clinical findings of Class I diastolic dysfunction. There is mild mitral regurgitation. There is mild tricuspid regurgitation. Procedure Details: sub optimal study. Left Ventricle: The left ventricular size, thickness and function are normal. Ejection Fraction = 60-65%. A full diastolic examination was done with clinical findings of Class I diastolic dysfunction. Left Atrium/Atrial Septum: The left atrial size is normal. Right Atrium: [facility]: [facility] [address] [facility]: [id number] [place] [address] ADMIT DATE: 07/27/20 DISCHARGE DATE: ATTENDING PHY: Marta Horvath DO ECHOCARDIOGRAM REPORT Right atrial size is normal. Right Ventricle: The right ventricle is normal in size and function. Aortic Valve: Structurally normal aortic valve. Mitral Valve: The mitral valve is normal in structure and function. There is mild mitral regurgitation. Tricuspid Valve: The tricuspid valve is normal in structure and function. There is mild tricuspid regurgitation. Pulmonic Valve: Structurally normal pulmonic valve. Arteries: The aortic root is normal size. Pericardium/Pleura: There is no pericardial effusion. MMode/2D Measurements and Calculations IVSd: 0.88 cm LVIDd: IVS/LVPW: EDV(cubed): IVSs: 0.97 cm 4.7 cm 1.1 107.1 ml LVIDs: FS: 30.0 % ESV(cubed): 3.3 cm EF(Teich): 36.7 ml LVPWd: 57.2 % EF(cubed): 0.79 cm 65.7 % LVPWs: % IVS thick: 1.1 cm 9.5 % % LVPW thick: 41.5 % LV mass(C)d: SV(Teich): MV Ao root diam: 131.5 grams 60.0 ml excursion: 2.9 cm LV mass(C)dI: SI(Teich): 1.4 cm Ao root area: 60.7 grams/m2 27.7 ml/m2 MV E-F 6.7 cm2 LV mass(C)s: SV(cubed): slope: ACS: 2.0 cm 101.4 grams 70.4 ml 5.9 cm/sec LA dimension: LV mass(C)sI: SI(cubed): 3.5 cm 46.8 grams/m2 32.5 ml/m2 LA/Ao: 1.2 EF(MOD-sp4):SI(MOD-sp4 ): LA ESV Index [facility] PATIENT NAME: ANDRE BLANCA [facility] Dr. Andrea MEDICAL REC #: [id number] [place] [address] ADMIT DATE: 07/27/20 DISCHARGE DATE: ATTENDING PHY: Marta Horvath DO ECHOCARDIOGRAM REPORT LVOT diam: 50.8 % (A4C): 2.0 cm 14.3 ml/m2 15.2 ml/m2 Time Measurements Aortic R-R: 0.82 sec Aortic HR: 72.8 BPM Doppler Measurements and Calculations MV E max kesha: MV max PG: MV P1/2t: Ao V2 max: 56.2 cm/sec 2.8 mmHg 97.0 msec 158.1 cm/sec MV A max kesha: MV mean PG: MVA(P1/2t):Ao max P.3 cm/sec 1.4 mmHg 2.3 cm2 10.0 mmHg MV E/A: 0.67 MVA(VTI): MV dec Ao max PG 2.7 cm2 time: (full): 0.18 sec 4.2 mmHg Ao mean P.3 mmHg Ao mean PG (full): 3.0 mmHg Ao V2 VTI: 26.9 cm YVON(I,A): 2.3 cm2 YVON(I,D): 2.3 cm2 YVON(V,A): 2.5 cm2 YVON(V,D): 2.5 cm2 LV V1 max: CO(Ao): PA max PG: PI end-d kesha: 120.7 cm/sec 13.1 l/min 4.7 mmHg 71.9 cm/sec LV V1 mean: CI(Ao): 83.8 cm/sec 6.0 l/min/m2 LV V1 VTI: SV(Ao): 18.6 cm 179.5 ml SI(Ao): 82.9 ml/m2 CO(LVOT): 4.5 l/min CI(LVOT): 2.1 l/min/m2 SI(LVOT): 28.3 ml/m2 [facility] PATIENT NAME: ANDRE BLANCA [facility] Dr. Andrea MEDICAL REC #: [id number] [place] [address] ADMIT DATE: 07/27/20 DISCHARGE DATE: ATTENDING PHY: Marta Horvath DO ECHOCARDIOGRAM REPORT TR max kesha: MV P1/2t- Lateral Medial E/E': 211.7 cm/sec pr_phl: E/E': 5.7 10.7 TR max P.0 msec 17.9 mmHg Pediatric Measurements and Calculations Lat Peak E' Kesha: 9.9 cm/sec Med Peak E' Kesha: 5.3 cm/sec Reviewed/Verified By: Dimitrios Casas MD 07/28/2020 02:33 PM Ordering Physician: Marta Horvath Referring Physician: TORI WALTERS Performed By: 18 CC: Marta Horvath [facility] PATIENT NAME: ANDRE BLANCA [facility] Dr. Andrea MEDICAL REC #: [id number] [place] [address] ADMIT DATE: 07/27/20 DISCHARGE DATE: ATTENDING PHY: Marta Horvath DO ECHOCARDIOGRAM REPORT Normal [facility] ECHOCARDIOGRAM REPORT Normal [facility] CT CERVICAL SP. W/O CONon CT CERVICAL SP. W/O CON CT CERVICAL SP. W/O CON Ordering Physician: Juan Manuel Skelton MD 07/27/2020 2:[address] CERVICAL SPINE WITHOUT IV CONTRAST: Clinical Statement: Syncope, fall Comparison: CT cervical spine 11/19/2016 TECHNIQUE: 2.5 mm serial axial images of the cervical spine were obtained. Coronal and sagittal reconstructions were generated. Three-dimensional reconstruction images were also performed by a radiologist on an independent workstation to aid in interpretation. FINDINGS: The visualized posterior fossa is within normal limits. There is normal cervical alignment. Occipitoatlantal and atlantoaxial relationships are maintained. The dens is intact. The vertebral body heights are maintained. The facets articulate normally the posterior elements are intact. No prevertebral soft tissue swelling. No acute fractures are identified. Degenerative disk disease has mildly progressed in comparison to prior. The findings are most severe at C5-C6 and C6-C7. The soft tissues of the neck are within normal limits. There are some normal-sized lymph nodes scattered along the jugular chains. There is no neck mass or fluid collection.. IMPRESSION: No acute osseous abnormality. Multilevel degenerative disk disease and facet arthropathy Dictated by Repair Department Manager: Jennifer Cobb DO Reviewed and Signed by: Kwesi Houston MD ---- Electronic Signature on File ---- Signed By: Kwesi Houston MD [email or web address] Dictated: 07/27/2020 3:00 PM Signed: 07/27/2020 3:22 PM Reported By: KWESI HOUSTON M.D. Signed By: KWESI HOUSTON M.D. [facility] CT HEAD/BRAIN W/O CONon 07-14 CT HEAD/BRAIN W/O CON CT HEAD/BRAIN W/O CON Ordering Physician: Eric Jacobsen 08/09/2020 9:24 PM CRANIAL COMPUTED TOMOGRAPHY Clinical Statement: Altered mental status, encephalopathy TECHNIQUE: 2.5 mm thick axial images were obtained through the posterior fossa with 5 mm thick axial images obtained of the remaining brain. The study was compared to a previous examination dated 07/27/2020. FINDINGS: Some of the images are degraded due to motion artifact. Repeat imaging was performed. There is age-related atrophy. There is remote ischemic change in the periventricular and subcortical white matter. There are remote ischemic changes in the basal ganglia. No shift or mass effect is seen. No hemorrhage or hematoma formation is identified. No acute infarctions are evident. There are no abnormal extra-axial fluid collections. The paranasal sinuses and mastoid air cells show no acute abnormalities. There are areas of mild mucosal thickening. IMPRESSION: Atrophy and remote ischemic change. No acute abnormalities. ---- Electronic Signature on File ---- Signed By: Dipesh Patiño MD FACR [email or web address] Dictated: 08/10/2020 7:43 AM Signed: 08/10/2020 7:46 AM Reported By: DIPESH PATIÑO M.D. Signed By: DIPESH PATIÑO M.D. [facility] CT HEAD/BRAIN W/O CON CT HEAD/BRAIN W/O CON Ordering Physician: Juan Manuel Skelton MD 07/27/2020 2:[address] HEAD/BRAIN WITHOUT IV CONTRAST: Clinical Statement: Syncope Comparison: Head CT 02/22/2019, MRI brain 02/23/2019 TECHNIQUE: 2.5 mm thick axial images were obtained the posterior fossa with 5 mm thick axial images obtained of the remaining brain. FINDINGS: No acute infarct, intracranial hemorrhage, abnormal fluid collection, hydrocephalus, or mass. There is mild age related cortical involution. Scattered nonspecific periventricular and subcortical hypodensities likely represent chronic microvascular angiopathy. There is a remote lacunar infarct in the left caudate nucleus.There are calcifications of the internal carotid arteries. Density of the large dural venous sinuses is appropriate. The visualized paranasal sinuses and mastoid air cells are predominantly clear. No acute fracture or soft tissue swelling. The visualized orbits and globes are intact. IMPRESSION: No acute intracranial abnormality. Stable age-related and chronic ischemic changes. Dictated by Repair Department Manager: Jennifer Cobb DO Reviewed and Signed by: Kwesi Houston MD ---- Electronic Signature on File ---- Signed By: Kwesi Houston MD [email or web address] Dictated: 07/27/2020 2:55 PM Signed: 07/27/2020 3:18 PM Reported By: KWESI HOUSTON M.D. Signed By: KWESI HOUSTON M.D. [facility] GFR ESTon 07-27-2020 IF AMER Greater than 60 [facility] Comment on above: Order Comment: Campu s: M Performed By: #### L [id number] #### [facility] LABORATORY [address] [place] [address] IF non-AFR AMER 51 [facility] Comment on above: Order Comment: Campu s: M Performed By: #### L [id number] #### [facility] LABORATORY [address] [place] [address] HP.[facility].ADMon 07-27-2020 Admission-H&P [facility] HP.IMS.ADM [facility] Patient Name: ANDRE BLANCA [address] [facility] Date of : [address] [place], [place] [address] Unit Number: [id number] Admission-HandP Patient Status: ADM IN Attending Doctor: Marta Horvath DO Service Date: 07/27/201820 History of Present Illness Chief Complaint/Present Illness: Syncope History of Present Illness 70-year-old female, primary care through [facility], past medical history CVA, hypothyroidism, COPD not on home oxygen, recurrent syncopal episodes in the past that she states have been worked up by her physicians at the [facility], testing done at the [facility] and here at [facility], concluding that she has "low blood pressure". She does not feel like her syncopal episode correlate to any activity. Today she had a syncopal episode when she was standing up to go use the restroom. Over the last 5 to 6 days she has developed viral symptoms of diarrhea, shortness of breath, decreased appetite, headache, sore throat, myalgias. ED vitals temperature 98.1, heart rate 91, respiratory rate 22, blood pressure 127/66, SPO2 95% room air. However she did become hypoxic in the emergency department with SPO2 of 85% on room air. When I see the patient she is on 2 L of oxygen with SPO2 94%. ED work-up EKG which I personally reviewed shows normal sinus rhythm with right bundle branch block which is pre-existing. Chest x-ray shows a left lower lobe infiltrate. I personally reviewed the chest x-ray, there is no obvious lobular infiltrate. I saw the patient in ER room 37, she sitting up in bed, she is the historian and seems to be reliable historian. Past Medical/Surgical Hx Past Medical History Chronic knee pain History of CVA, some difficulty swallowing some foods however otherwise no residual deficits COPD, not on home O2 Hypothyroidism Irritable bowel syndrome Migraines Fibromyalgia Hypotension, as a cause of recurrent syncope Past Surgical History Hysterectomy Right arm surgery Ingrown toenail Cholecystectomy Family/Social History Family History FATHER, , Age 60+. FH: emphysema Gangrene MOTHER, , Age 60+. FH: alcoholism Substances Denies use of: Alcohol, Tobacco (Quit 10 to 15 years ago), Recreational Drugs. Social Hx Patient lives alone. She uses a Rollator at home. Advance Directives Advance Directives Full Code Allergies/Home Medications Allergies Coded Allergies: BUTORPHANOL (01/17/13) IBUPROFEN (06/03/13) OXYCODONE (01/17/13) SALICYLAMIDE (UNSURE IF THIS IS AN ALLERGY 01/17/13) SULFA (SULFONAMIDE ANTIBIOTICS) (01/17/13) SUMATRIPTAN (01/17/13) XANTHINES (01/17/13) butorphanol tartrate (From STADOL) (06/03/13) hydrocodone bit (From VICODIN) (06/03/13) hydromorphone HCl (From DILAUDID) (06/03/13) ACETAMINOPHEN (From PERCOCET) (NAUSEA/VOMITING 06/21/13) ASPIRIN (HEART RACES/EARS RING 06/21/13) oxycodone HCl (From PERCOCET) (NAUSEA/VOMITING 06/21/13) prochlorperazine edisylate (From COMPAZINE) (SEVER HEAD PAIN, VOMITING 06/21/13) prochlorperazine maleate (From COMPAZINE) (SEVER HEAD PAIN, VOMITING 06/21/13) Home Medications Acetaminophen* (Tylenol 500MG Tab*) 500 MG TABLET 500 MG PO Q6HPRN PRN PAIN, Ref 0 ( Reported) Entered as Reported by GASTON URIBE on 04/16/171952 Last Action: Continued on 07/28/2011 by MARTA HORVATH Albuterol Sulfate (Proair Hfa Inhaler) 8.5 GM HFA.AER.AD 1-2 PUFF INH QIDPRN PRN SHORTNESS OF BREATH, Ref 0 (Reported) Entered as Reported by GASTON URIBE on 04/16/171950 Last Action: Continued on 07/28/2011 by MARTA HORVATH Amitriptyline HCl (Elavil) (Amitriptyline HCl 100MG Tab) 100 MG TAB 100 MG PO QHS #30 TAB, Ref 0 Prescribed by FEROZ LUNA on 02/26/19 Last Action: Continued on 07/28/2011 by MARTA HORVATH Budesonide/Formoterol Fum (Symbicort 160/4.5 Mcg INH) 1 PUFF HFA.AER.AD 1 PUFF INH BID, Ref 0 (Reported) Entered as Reported by GSATON URIBE on 04/16/171949 Last Action: Held on 07/28/2011 by MARTA HORVATH busPIRone HCL* (Buspar 10MG Tab*) 10 MG TABLET 20 MG PO TIDWM, Ref 0 (Reported) Entered as Reported by GASTON URIBE on 04/16/171951 Last Action: Continued on 07/28/2011 by MARTA HORVATH carBAMazepine* (Tegretol 200MG Tab*) 200 MG TABLET 200 MG PO TIDWM, Ref 0 (Reported) Entered as Reported by GASTON URIBE on 04/16/171949 Last Action: Continued on 07/28/2011 by MARTA HORVATH Clopidogrel Bisulfate* (Plavix 75MG Tab*) 75 MG TABLET 75 MG PO QDAY, Ref 0 (Reported) Entered as Reported by GASTON URIBE on 04/16/171951 Last Action: Continued on 07/28/2011 by MARTA HORVATH Fluoxetine HCl* (Prozac 20MG Cap*) 20 MG CAPSULE 20 MG PO QDAY, Ref 0 (Reported) Entered as Reported by GASTON URIBE on 04/16/171950 Last Action: Continued on 07/28/2011 by MARTA HORVATH Levothyroxine Sodium* (Synthroid 0.125MG Tab*) 125 MCG TABLET 0.125 MG PO QDAYAC, Ref 0 (Reported) Entered as Reported by GASTON URIBE on 10/24/18 1319 Last Action: Continued on 07/28/2011 by MARTA HORVATH Melatonin* (Melatonin Tab*) 3 MG TABLET 3 MG PO QHS, Ref 0 (Reported) Entered as Reported by GASTON URIBE on 10/24/18 1322 Last Action: Continued on 07/28/2011 by MARTA HORVATH Methyl Salicylate/Menthol* (Bengay Greaseless Cream*) 57 GM CREAM..G. 1 APPL TP BIDPRN PRN PAIN, Ref 0 (Reported) APPLY TO NECK Entered as Reported by GASTON URIBE on 04/16/171949 Last Action: Continued on 07/28/2011 by MARTA HORVATH Ondansetron HCl* (Zofran 4MG Tab*) 4 MG TABLET 4 MG PO BIDPRN PRN NAUSEA, Ref 0 ( Reported) Entered as Reported by GASTON URIBE on 10/24/18 1315 Last Action: Continued on 07/28/2011 by MARTA HORVATH Pantoprazole* (Protonix 40MG Tab*) 40 MG TABLET.DR 40 MG PO BIDAC, Ref 0 (Reported) Entered as Reported by GASTON URIBE on 04/16/17 195 Last Action: Continued on 07/28/2011 by MARTA HORVATH Pravastatin Sodium* (Pravachol 40MG Tab*) 40 MG TABLET 40 MG PO QHS, Ref 0 (Reported) Entered as Reported by COSME GARCIA on 02/22/19 1611 Last Action: Continued on 07/28/2011 by MARTA HORVATH Pregabalin* (Lyrica Cap*) 150 MG CAPSULE 150 MG PO BID, Ref 0 (Reported) Entered as Reported by COSME GARCIA on 02/22/19 1613 Last Action: Continued on 07/28/2011 by MARTA HORVATH Risperidone* (Risperdal 3MG Tab*) 3 MG TABLET 3 MG PO BID, Ref 0 (Reported) Entered as Reported by COSME GARCIA on 02/22/19 161 Last Action: Continued on 07/28/2011 by MARTA HORVATH Discontinued Medications Ascorbic Acid* (Vitamin C 500MG Tab*) 500 MG CAPSULE.ER 500 MG PO QDAY, Ref 0 (Reported ) Discontinued reason: DC By Physician Last Action: Discontinued on 07/27/202307 by CHRISTIANO FRAUSTO Beta-Carotene (Beta Carotene) 25,000 UNIT CAPSULE 25,000 UNIT PO QDAY, Ref 0 (Reported) Discontinued reason: DC By Physician Last Action: Discontinued on 07/27/202307 by CHRISTIANO FRAUSTO Biotin 1 MG TABLET 0.5 MG PO QDAY, Ref 0 (Reported) Discontinued reason: DC By Physician Last Action: Discontinued on 07/27/202307 by CHRISTINAO FRAUSTO calcium CARB/VIT D3 (Caltrate 600 W-D Tab) 1 EACH TABLET 1 TAB PO QDAY, Ref 0 ( Reported) Discontinued reason: DC By Physician Last Action: Discontinued on 07/27/202306 by CHRISTIANO FRAUSTO Cyanocobalamin (Vitamin B12 (1,000MCG) Tab) 1,000 MCG TABLET 500 MCG PO QDAY, Ref 0 ( Reported) Discontinued reason: DC By Physician Last Action: Discontinued on 07/27/202308 by CHRISTIANO FRAUSTO Cyclobenzaprine HCl* (Flexeril 10MG Tab*) 10 MG TABLET 10 MG PO BID, Ref 0 (Reported) Discontinued reason: DC By Physician Last Action: Discontinued on 07/27/202305 by CHRISTIANO FRAUSTO Ergocalciferol (Vitamin D2) (Vitamin D 50,000 Unit Cap) 50,000 UNIT CAPSULE 50,000 UNIT PO Q14DAY, Ref 0 (Reported) Discontinued reason: DC By Physician Last Action: Discontinued on 07/27/202308 by CHRISTIANO FRAUSTO Ferrous Sulfate* (Dash-Time*) 325 MG TABLET 325 MG PO TIDAC, Ref 0 (Reported) Discontinued reason: DC By Physician Last Action: Discontinued on 07/27/202306 by CHRISTIANO FRAUSTO Folic Acid 0.4 MG TABLET 0.4 MG PO QDAY, Ref 0 (Reported) Discontinued reason: DC By Physician Last Action: Discontinued on 07/27/202308 by CHRISTIANO FRAUSTO Lysine 500 MG TABLET 500 MG PO QDAY, Ref 0 (Reported) Discontinued reason: DC By Physician Last Action: Discontinued on 07/27/202307 by CHRISTIANO FRAUSTO Meclizine HCl (Antivert Tab) 25 MG UDTAB 25 MG PO TIDPRN PRN VERTIGO, Ref 0 (Reported) Discontinued reason: DC By Physician Last Action: Discontinued on 07/27/202307 by CHRISTIANO FRAUSTO Polyethylene Glycol 3350* (Miralax Packet*) 17 GM POWD.PACK 17 GM PO QDAY, Ref 0 ( Reported) In at least 8 oz water or juice. Discontinued reason: DC By Physician Last Action: Discontinued on 07/27/202307 by CHRISTIANO FRAUSTO Vitamin B Complex (B Complex) 1 EACH CAPSULE 1 EACH PO QDAY, Ref 0 (Reported) Discontinued reason: DC By Physician Last Action: Discontinued on 07/27/202308 by CHRISTIANO FRAUSTO Review of Systems Constitutional Denies: Fever, Chills. EENT Denies: Vision Change, Odynophagia. Cardiovascular Reports: Syncope. Denies: Chest Pain, Palpitations, Leg Swelling. Pulmonary Reports: Dyspnea. Denies: Cough, Sputum. Gastrointestinal Reports: Nausea, Vomiting, Diarrhea, Loss of Appetite. Denies: Abdominal Pain. Genitourinary Denies: Dysuria. Musculoskeletal Reports: Joint Pain. Denies: Back Pain. Skin Denies: Rash. Lymphatic Denies: Enlarged Lymph Nodes. Neuro Reports: Syncope, Weakness. Denies: Numbness, Tingling. Psychiatric Denies: Depression, Anxiety. Physical Exam Vital Signs Temperature 98.1, heart rate 98, respiratory rate 20, blood pressure 115/68, SPO2 94% 2 L Appearance - PE Awake, Alert, No distress Neck - PE Normal inspection, Supple, Full range of motion HEENT - PE Head atraumatic, Eyes normal inspection, PERRLA, Hearing grossly normal, No signs of dehydration, Mucosa moist Respiratory - PE Lungs sound clear, Respirations non-labored, Symmetrical expansion Cardiovascular - PE Rate WNL, Rhythm regular, Normal heart sounds Neurological - PE Alert, Oriented x 3, No motor deficit, No sensory deficit Abdomen - PE Bowel sounds present, Abdomen soft, Non-tender, No distension Extremity - PE Normal appearance, No pedal edema, Symmetrical Skin - PE Color normal, Skin warm, dry Additional Laboratory Tests 07/27 1511 Chemistry Sodium (136 - 145 MMOL/L) 140 Potassium (3.5 - 5.1 MMOL/L) 3.9 Chloride (98 - 107 MMOL/L) 105 Carbon Dioxide (21 - 32 MMOL/L) 26.0 Anion Gap (5 - 16 MMOL/L) 9 BUN (7 - 26 MG/DL) 11 Creatinine (0.510 - 0.950 MG/DL) 1.06 H Est GFR ( Amer) Greater than 60 Est GFR (Non-Af Amer) 51 BUN/Creatinine Ratio (15 - 24) 10 L Glucose (70 - 100 MG/DL) 136 H Total Calcium (8.5 - 10.5 MG/DL) 9.7 Hematology WBC (4.5 - 11.0 K/CUMM) 10.0 RBC (3.90 - 5.30 M/CU MM) 4.73 Hgb (11.5 - 15.5 G/DL) 13.9 Hct (35.0 - 47.0 %) 42.1 MCV (80.0 - 99.0 fl) 89.0 MCHC (32.0 - 36.0 GM/DL) 33.0 RDW (11 - 14.5) 14.2 Plt Count (150 - 450 K/CU MM) 265 MPV (9.4 - 12.4) 10.2 Immature Gran % (Auto) (Less than 2 %) 0.3 Abs Immat Gran (auto) (Less than 2 K/CU MM) 0.00 Seg Neutrophils % (45 - 75 %) 76.3 H Lymphocytes % (20 - 40 %) 14.1 L Monocytes % (2 - 10 %) 6.2 Eosinophils % (0 - 5 %) 2.3 Basophils % (0 - 2 %) 0.8 Neutrophils # (2.0 - 8.3 K/CU MM) 7.60 Lymphocytes # (0.9 - 4.4 K/CU MM) 1.40 Monocytes # (0.1 - 1.1 K/CU MM) 0.60 Eosinophils # (0 - 0.5 K/CU MM) 0.20 Basophils # (0 - 0.2 K/CU MM) 0.10 Nucleated RBCs (Less than 1 %) 0.0 Recent Impressions COMPUTERIZED TOMOGRAPHY - CT HEAD/BRAIN W/O CON 07/27 1440 Report Impression - Status: SIGNED Entered: 07/27/2020 1524 IMPRESSION: No acute intracranial abnormality. Stable age-related and chronic ischemic changes. Impression By: CIRO HOUSTON M.D. COMPUTERIZED TOMOGRAPHY - CT CERVICAL SP. W/O CON 07/27 1440 Report Impression - Status: SIGNED Entered: 07/27/2020 1528 IMPRESSION: No acute osseous abnormality. Multilevel degenerative disk disease and facet arthropathy Impression By: CIRO HOUSTON M.D. RADIOLOGY - PORTABLE CHEST 07/27 1637 Report Impression - Status: SIGNED Entered: 07/27/2020 1713 IMPRESSION: Hazy opacity at the left lung base, possible atelectasis versus early pneumonia. Impression By: CHRIS FUNK M.D. Conclusion / Plan Conclusion 1. Acute hypoxemic respiratory failure 2. Syncope 3. Hypothyroidism 4. COPD (chronic obstructive pulmonary disease) 5. Depression 6. Fibromyalgia 70-year-old female came to the emergency department because of a syncopal episode. She states that she has had syncope in the past, worked up in the past and concluded that she has syncopal episodes to a "low blood pressure". Her last echocardiogram in [facility] for review is from February 2019 demonstrating LVEF 50 to 55%, mild to moderate mitral and tricuspid regurgitation. October 2018 she had carotid duplex scans negative, MRI and MRA of the head negative. She is also found to be hypoxic in the emergency department with SPO2 of 85% on room air. Chest x-ray demonstrated a left lower lobe infiltrate; the personal review I do not appreciate an obvious lobular infiltrate. Acute hypoxemic respiratory failure, COVID-19 negative. Chest x-ray read as a left lower lobe infiltrate which I do not appreciate is personally reviewed. She actually does have a lot of symptoms that could be consistent with a viral illness and she does admit to shortness of breath. She does have underlying COPD and does not wear oxygen. Upon exam I do not appreciate any bronchospasm to indicate acute COPD exacerbation. She will be on supplemental oxygen, I will order incentive spirometry. I will order Rocephin, DuoNeb's. Syncope, patient states she has had syncopal episodes before attributable to low blood pressure. I have asked the nurse to have orthostatic vital signs taken at this point they have been done. -Orthostatics, supine blood pressure 125/60, heart rate 79 -Sitting blood pressure 120/69, heart rate 87 -She was dizzy standing and orthostatics were not able to be obtained Positive orthostatics, will give IV fluids just x1 dose at this time. Echocardiogram will be ordered. Consider carotid imaging. With review of her outpatient medications there are a few that could be contributing to hypotension including risperidone, buspirone, pregabalin and amitriptyline. These may need to be tapered down prior to discharge. Hypothyroidism, TSH and thyroid functions ordered for morning. Continue current dose of Synthroid. COPD, no acute exacerbation Depression, fibromyalgia. Continue current meds including risperidone, buspirone, amitriptyline, however that some these may need to be changed because of her syncopal episodes. Disclaimer This dictation was created using voice recognition software. Phonetic and/or minor grammatical errors may exist. eSign Date and Time Marta Horvath Verified/Reviewed by 07/28/20 0044 [facility] PORTABLE CHEST EXAMINATION: CHEST RADIOGRAPH (PORTABLE SINGLE VIEW AP) Exam Date/Time: 08/04/2020 12:00 AM CLINICAL HISTORY: Possible aspiration MQ: XCPR_5 Comparison: 07/27/2020 RESULT: Lines, tubes, and devices: None. Lungs and pleura: Increased patchy consolidation in the left lung base, new from prior. No pneumothorax or measurable pleural effusion. Cardiomediastinal silhouette: Normal cardiomediastinal silhouette. Other: . IMPRESSION: Left lower lung pneumonia/aspiration in the appropriate setting. Recommend follow-up after appropriate therapy to ensure resolution. This report was electronically signed by Kwesi Garcia MD 08/04/2020 1:02 AM Reported By: KWESI GARCIA MD Signed By: KWESI GARCIA MD [facility] PORTABLE CHEST PORTABLE CHEST Ordering Physician: Jayesh Loera MD 08/11/2020 5:00 AM PORTABLE UPRIGHT CHEST RADIOGRAPH AT 0352 HOURS Clinical Statement: Dyspnea Comparison: 08/10/2020 FINDINGS: Right PICC line is unchanged in position. The nasogastric tube is stable. The cardiomediastinal silhouette is unchanged. Interstitial and alveolar opacities remain bilaterally out significant change. No definite pleural fluid. No pneumothorax. IMPRESSION: No significant interval change. ---- Electronic Signature on File ---- Signed By: Aaron Burkett MD [email or web address] Dictated: 08/11/2020 7:29 AM Signed: 08/11/2020 7:30 AM Reported By: AARON BURKETT M.D. Signed By: AARON BURKETT M.D. [facility] PORTABLE CHEST PORTABLE CHEST Ordering Physician: Morris Alonso MD 08/08/2020 5:00 AM PORTABLE AP CHEST AUGUST 08, 2020 5:30 AM Clinical Statement: Dyspnea Comparison: August 04, 2020 FINDINGS: There is a right arm PICC line in place with its tip at the junction of the superior vena cava and right atrium. There is an enteric tube in place with its tip below the level of diaphragm. The cardiomediastinal silhouette is within normal limits. Bilateral pulmonary infiltrates more severe. No pleural effusion or pneumothorax. IMPRESSION: Worsening appearance of the lungs. ---- Electronic Signature on File ---- Signed By: Dimitrios Cabrera MD [email or web address] Dictated: 08/08/2020 7:44 AM Signed: 08/08/2020 7:46 AM Reported By: DIMITRIOS CABRERA M.D. Signed By: DIMITRIOS CABRERA M.D. [facility] PORTABLE CHEST PORTABLE CHEST Ordering Physician: Morris Alonso MD 08/09/2020 5:00 AM PORTABLE CHEST: Clinical Statement: Dyspnea Comparison: Portable chest 08/08/2020 FINDINGS: There is volume loss in the right with elevation the right hemidiaphragm. Hazy interstitial pulmonary opacities are again seen throughout the lungs bilaterally. These appear slightly worse. No pleural effusion or pneumothorax. The gastric tube and right sided PICC line are in satisfactory position. The cardiac silhouette is within normal limits. No pleural effusion or pneumothorax. IMPRESSION: Worsening bilateral hazy interstitial pulmonary opacities left greater than right ---- Electronic Signature on File ---- Signed By: Kwesi Houston MD [email or web address] Dictated: 08/09/2020 7:14 AM Signed: 08/09/2020 7:14 AM Reported By: KWESI HOUSTON M.D. Signed By: KWESI HOUSTON M.D. [facility] PORTABLE CHEST PORTABLE CHEST Ordering Physician: Delia Adam MD 08/14/2020 6:00 AM CHEST Clinical Statement: Shortness of breath FINDINGS: A portable chest image was obtained and compared to a previous study dated 08/11/2020. The heart is normal in size. The aorta is tortuous. There are bilateral interstitial and alveolar infiltrates, greater on the left showing no change. An enteric tube is extending into the stomach. There is a PICC line in the distal superior vena cava. IMPRESSION: Bilateral interstitial and alveolar infiltrates/edema similar to the previous study. ---- Electronic Signature on File ---- Signed By: Dipesh Patiño MD FACR [email or web address] Dictated: 08/14/2020 7:35 AM Signed: 08/14/2020 7:36 AM Reported By: DIPESH APTIÑO M.D. Signed By: DIPESH PATIÑO M.D. [facility] PORTABLE CHEST PORTABLE CHEST Ordering Physician: Morris Alonso MD 08/10/2020 5:00 AM PORTABLE UPRIGHT CHEST RADIOGRAPH AT 0434 HOURS Clinical Statement: Dyspnea Comparison: 08/09/2020 FINDINGS: The the patient is tilted and rotated to the right. This limits evaluation of the heart border. The nasogastric tube terminates within the proximal stomach. Right PICC line terminates in the right atrium. Diffuse interstitial and alveolar opacities are present bilaterally without significant change. No significant pleural fluid. No pneumothorax. IMPRESSION: No significant interval change. ---- Electronic Signature on File ---- Signed By: Aaron Burkett MD [email or web address] Dictated: 08/10/2020 7:07 AM Signed: 08/10/2020 7:08 AM Reported By: AARON BURKETT M.D. Signed By: AARON BURKETT M.D. [facility] PORTABLE CHEST PORTABLE CHEST Ordering Physician: Juan Manuel Skelton MD 07/27/2020 4:27 PM PORTABLE UPRIGHT CHEST (1645): Clinical Statement: Hypoxia Comparison: Chest radiograph 02/22/2019 FINDINGS: The cardiomediastinal silhouette is normal. Patient is slightly rotated toward the right. There is hazy opacity at the left lung base. No vascular congestion, pleural effusion, or pneumothorax. Osseous structures are unremarkable. IMPRESSION: Hazy opacity at the left lung base, possible atelectasis versus early pneumonia. Dictated by Repair Department Manager: Jennifer Cobb DO Reviewed and Signed by: Laz Funk MD ---- Electronic Signature on File ---- Signed By: Laz Funk MD [email or web address] Dictated: 07/27/2020 4:58 PM Signed: 07/27/2020 5:07 PM Reported By: LAZ FUNK M.D. Signed By: LAZ FUNK M.D. [facility] SARS-COV-2 PCRon 07-27-2020 SARS-COV-2 PCR NOT DETECTED Normal NOT DETECTD [facility] Comment on above: Order Comment: Maciel joe: Ramiro Result Comment: RESU LTS CALLED [place] BRENDA AT 201507/27/20 BY LAKESHA RENEE Negative results do not preclude SARS-CoV-2 infection and should not be used as the sole basis for treatment or other patient management decisions. Negative results must be combined with clinical observation, patient history, and epidemiological information. This test has been authorized by the FDA under the Emergency Use Authorization (EUA) for use by authorized laboratories. This test was performed by PCR. Performed By: #### L [phone] ####[facility] [id number] [place], [place] [address]Ld# [phone] SHOULDER MIN 2 VWS RTon 07-14 SHOULDER MIN 2 VWS RT SHOULDER MIN 2 VWS RT Ordering Physician: Edilma Wolf MD 07/30/2020 12:38 PM FOUR VIEWS RIGHT SHOULDER: Clinical Statement: Status post fall with pain Comparison: Four views right shoulder 01/24/2019 FINDINGS: Is no fracture or dislocation. Normal articulation is maintained at the glenohumeral joint with internal and external rotation. There are degenerative changes at the glenohumeral joint and the acromioclavicular joint. The surrounding osseous structures and soft tissues are within normal limits. IMPRESSION: No acute osseous abnormality ---- Electronic Signature on File ---- Signed By: Kwesi Houston MD [email or web address] Dictated: 07/30/2020 1:56 PM Signed: 07/30/2020 1:58 PM Reported By: KWESI HOUSTON M.D. Signed By: KWESI HOUSTON M.D. [facility] Vital Signs Date Time Vital Sign Value Performing Clinician Muriel michaels 02-25-2025 15:07-0400 Body height 168.9 cm Opal Espinoza MD Work Phone: [facility] [employer] 02-25-2025 15:07-0400 Body mass index (BMI) [Ratio] 28.94 kg/m2 Opal Espinoza MD Work Phone: [facility] [employer] 02-25-2025 15:07-0400 Body weight 82.56 kg Opal Espinoza MD Work Phone: [facility] [employer] 02-25-2025 15:07-0400 Diastolic blood pressure 79 mm[Hg] Opal Espinoza MD Work Phone: [facility] [employer] 02-25-2025 15:07-0400 Heart rate 70 /min Opal Espinoza MD Work Phone: [facility] [employer] 02-25-2025 15:07-0400 Systolic blood pressure 118 mm[Hg] Opal Espinoza MD Work Phone: [facility] [employer] 09-27-2024 13:15-0500 Heart rate 84 /min Muna Edmonds MD Work Phone: [facility] [employer] 09-27-2024 13:15-0500 Respiratory rate 18 /min Muna Edmonds MD Work Phone: [facility] [employer] 09-27-2024 13:15-0500 SaO2% (BldA) [Mass fraction] 95 % Muna Edmonds MD Work Phone: [facility] [employer] 09-27-2024 09:22-0500 Diastolic blood pressure 83 mm[Hg] Muna Edmonds MD Work Phone: [facility] [employer] 09-27-2024 09:22-0500 Systolic blood pressure 126 mm[Hg] Muna Edmonds MD Work Phone: [facility] [employer] 09-27-2024 08:36-0500 Body temperature 97.39 [degF] Muna Edmonds MD Work Phone: [facility] [employer] 09-26-2024 10:48-0500 Body height 168.9 cm Muna Edmonds MD Work Phone: [facility] [employer] 09-25-2024 21:30-0500 Body mass index (BMI) [Ratio] 28.95 kg/m2 Muna Edmonds MD Work Phone: [facility] [employer] 09-25-2024 21:30-0500 Body weight 82.6 kg Muna Edmonds MD Work Phone: [facility] [employer] 09-13-2023 08:32-0500 Body height 170.2 cm Almas Laureano MD Work Phone: [facility] [employer] 09-13-2023 08:32-0500 Body mass index (BMI) [Ratio] 28.19 kg/m2 Almas Laureano MD Work Phone: [facility] [employer] 09-13-2023 08:32-0500 Body weight 81.65 kg Almas Laureano MD Work Phone: [facility] [employer] 05-31-2023 13:21-0400 Body height 170.2 cm Almas Laureano MD Work Phone: [facility] [employer] 05-31-2023 13:21-0400 Body mass index (BMI) [Ratio] 28.19 kg/m2 Almas Laurenao MD Work Phone: [facility] [employer] 05-31-2023 13:21-0400 Body weight 81.65 kg Almas Laureano MD Work Phone: [facility] [employer] 02-08-2023 13:12-0400 Body height 170.2 cm Abiola Escobarfigcarolyno PA-C Work Phone: [facility] [employer] 02-08-2023 13:12-0400 Body mass index (BMI) [Ratio] 28.19 kg/m2 Abiola Escobarfiglio PA-C Work Phone: [facility] [employer] 02-08-2023 13:12-0400 Body weight 81.65 kg Abiola Escobarfigcarolyno PA-C Work Phone: [facility] [employer] 01-13-2023 11:34-0400 Body temperature 98.4 [degF] Almas Laureano MD Work Phone: [facility] [employer] 01-13-2023 11:34-0400 Diastolic blood pressure 47 mm[Hg] Almas Laureano MD Work Phone: [facility] [employer] 01-13-2023 11:34-0400 Heart rate 97 /min Almas Laureano MD Work Phone: [facility] [employer] 01-13-2023 11:34-0400 Respiratory rate 18 /min Almas Laureano MD Work Phone: [facility] [employer] 01-13-2023 11:34-0400 SaO2% (BldA) [Mass fraction] 92 % Almas Laureano MD Work Phone: [facility] [employer] 01-13-2023 11:34-0400 Systolic blood pressure 96 mm[Hg] Almas Laureano MD Work Phone: [facility] [employer] 06-05-2022 04:29-0400 Body temperature 98.01 [degF] Kwesi Decker DO Work Phone: [employer] 06-05-2022 04:29-0400 Diastolic blood pressure 82 mm[Hg] Kwesi Decker DO Work Phone: [employer] 06-05-2022 04:29-0400 Heart rate 84 /min Kwesi Hooverbour DO Work Phone: [employer] 06-05-2022 04:29-0400 Respiratory rate 16 /min Kwesi Decker DO Work Phone: [employer] 06-05-2022 04:29-0400 SaO2% (BldA) [Mass fraction] 92 % Kwesi Decker DO Work Phone: [employer] 06-05-2022 04:29-0400 Systolic blood pressure 114 mm[Hg] Kwesi Hooverbour DO Work Phone: [employer] 05-30-2022 10:22-0400 Body height 170.2 cm Kwesi Decker DO Work Phone: [employer] 05-30-2022 10:22-0400 Body mass index (BMI) [Ratio] 30.54 kg/m2 Kwesi Decker DO Work Phone: [employer] 05-30-2022 10:22-0400 Body weight 88.45 kg Kwesi Decker DO Work Phone: [employer] 01-19-2022 15:10-0400 Diastolic blood pressure 69 mm[Hg] Kim Muhammad MD Work Phone: [employer] 01-19-2022 15:10-0400 Heart rate 110 /min Kim Muhammad MD Work Phone: [employer] 01-19-2022 15:10-0400 SaO2% (BldA) [Mass fraction] 95 % Kim Muhammad MD Work Phone: [employer] 01-19-2022 15:10-0400 Systolic blood pressure 129 mm[Hg] Kim Muhammad MD Work Phone: [facility] 01-19-2022 15:06-0400 Body temperature 98.4 [degF] Kim Muhammad MD Work Phone: [employer] 01-19-2022 15:06-0400 Respiratory rate 16 /min Kim Muhammad MD Work Phone: [employer] 01-18-2022 06:53-0400 Body height 170.2 cm Kim Muhammad MD Work Phone: [facility] 01-18-2022 06:53-0400 Body mass index (BMI) [Ratio] 33.67 kg/m2 Kim Muhammad MD Work Phone: [employer] 01-18-2022 06:53-0400 Body weight 97.52 kg Kim Muhammad MD Work Phone: [facility] 11-17-2020 11:01-0400 Pulse (Heart Rate) 54 /min Jayesh BARAJAS Work Phone: 11-17-2020 11:01-0400 Pulse Oximetry 96 % Jayesh Luz [facility] [employer] Work Phone: 11-17-2020 11:010400 Respiratory Rate 18 /min Jayesh Loera [facility] Work Phone: Encounters Encounter Date Encounter Type Care Provider Facility Start: 05-19-2025 ambulatory Kianna Monikaalexa [place] Faci lity:[facility] Start: 05-14-2025 ambulatory Kianna [place]ADOR Faci lity:[facility] Start: 05-09-2025 End: 05-09-2025 ambulatory Kianna Ramon [place] Facility:[facility] Start: 04-24-2025 ambulatory Amaury [place] Facility:[facility] Start: 02-25-2025 End: 02-25-2025 ambulatory OPAL ESPINOZA [facility] Start: 02-25-2025 End: 02-25-2025 Office outpatient new 30 minutes Opal Espinoza MD Work Phone: [facility] Comment on above: Spondylolysis, lumbo sacral (Primary Dx); Sacroiliac dysfunction; Lumbar pain Start: 02-25-2025 End: 02-25-2025 Subsequent hospital visit by physician Opal [facility]za [facility] Comment on above: Lumbar pain Start: 09-30-2024 End: 09-30-2024 ambulatory Kianna Ramon [place] [facility] Work Phone: Start: 09-30-2024 End: 09-30-2024 Departed Referred Kianna Izquierdo -[facility] Start: 09-30-2024 End: 09-30-2024 ambulatory Kianna Monikaalexa [place] Facility:[facility] Start: 09-23-2024 End: 09-27-2024 ambulatory RIA [facility] Start: 09-23-2024 End: 09-27-2024 Emergency department patient visit Muna Edmonds MD Work Phone: [facility] Comment on above: Pneumonia due to org anism (Primary Dx); Fall, initial encounter; Neuropathy Start: 07-29-2024 ambulatory Kianna [place] Faci lity:[facility] Start: 07-29-2024 Registered Referred Kianna Izquierdo [facility] Start: 07-08-2024 End: 07-08-2024 Departed Referred Kianna Izquierdo [place] [facility] Start: 07-08-2024 End: 07-08-2024 ambulatory Kianna Izquierdo OLS Facility:[facility] Start: 06-18-2024 End: 06-18-2024 Subsequent hospital visit by physician Almas Laureano MD Work Phone: [facility] Comment on above: Right hip pain; Avascular necrosis of bone of hip, right (HCC) Start: 06-18-2024 End: 06-18-2024 ambulatory [facility] Start: 11-24-2023 End: 11-24-2023 Subsequent hospital visit by physician Almas Laureano MD Work Phone: [facility] Comment on above: Canceled (Patient: S chedule Conflict) Start: 10-24-2023 End: 10-24-2023 [facility] Work Phone: Start: 10-24-2023 End: 10-24-2023 Departed Referred [facility] Start: 09-13-2023 End: 09-13-2023 Office outpatient visit 15 minutes Almas Laureano MD Work Phone: [facility] Comment on above: Right hip pain Start: 09-13-2023 End: 09-13-2023 Subsequent hospital visit by physician Jaimee Ramírez PA-C [facility] Comment on above: Right hip pain Start: 09-11-2023 Orders Only Jaimee Louis Work Phone: [facility] Comment on above: Right hip pain (Prim adi Dx) Start: 08-10-2023 End: 08-10-2023 [facility] Work Phone: Start: 08-10-2023 End: 08-10-2023 Departed Referred [facility] Start: 08-10-2023 Registered Referred [facility] Start: 07-31-2023 End: 07-31-2023 ambulatory [facility] Work Phone: Start: 07-31-2023 End: 07-31-2023 Departed Referred [facility] Start: 06-26-2023 End: 06-26-2023 ambulatory [facility] Work Phone: Start: 06-26-2023 End: 06-26-2023 Departed Referred [facility] Start: 06-26-2023 Registered Referred [facility] Start: 06-20-2023 End: 06-20-2023 [facility] Work Phone: Start: 06-20-2023 End: 06-20-2023 Departed Referred [facility] Start: 06-02-2023 Orders Only Abiola Connolly PA-C Work Phone: [facility] Comment on above: Status post total ri ght knee replacement (Primary Dx); Primary osteoarthritis of right knee Start: 06-01-2023 End: 06-01-2023 [facility] Work Phone: Start: 06-01-2023 End: 06-01-2023 Departed Referred [facility] Start: 05-31-2023 End: 05-31-2023 Office outpatient visit 15 minutes Almas Laureano MD Work Phone: [facility] Comment on above: Status post total ri ght knee replacement; Primary osteoarthritis of right knee Start: 05-31-2023 End: 05-31-2023 Subsequent hospital visit by physician Abiola Connolly PA-C Work Phone: [facility] Comment on above: S/P total knee arthr oplasty, right Start: 04-25-2023 End: 04-25-2023 ambulatory [facility] Work Phone: Start: 04-25-2023 End: 04-25-2023 Departed Referred [facility] Start: 02-08-2023 End: 02-08-2023 Postop follow up visit related to original px Abiola Connolly PA-C Work Phone: [facility] Comment on above: Primary osteoarthrit is of right knee; S/P total knee arthroplasty, right Start: 02-08-2023 End: 02-08-2023 Subsequent hospital visit by physician Abiola Connolly PA-C Work Phone: [facility] X-ray Comment on above: S/P total knee arthr oplasty, right Start: 02-06-2023 End: 02-06-2023 [facility] Work Phone: Start: 02-06-2023 End: 02-06-2023 Departed Referred [facility] Start: 02-01-2023 Orders Only Abiola Connolly PA-C Work Phone: [facility] Comment on above: S/P total knee arthr oplasty, right (Primary Dx) Start: 01-31-2023 Registered Referred [facility] Work Phone: Start: 01-16-2023 Telephone encounter Almas Laureano MD Work Phone: [facility] Comment on above: Advice Only Start: 01-12-2023 End: 01-12-2023 Anesthesia consultation Michel Zambrano MD Work Phone: [facility] Start: 01-12-2023 End: 01-13-2023 Subsequent hospital visit by physician Almas Laureano MD Work Phone: [address] Comment on above: Primary osteoarthrit is of right knee (Primary Dx) Start: 01-04-2023 End: 01-04-2023 ambulatory [facility] Work Phone: Start: 01-04-2023 End: 01-04-2023 Departed Referred [facility] Start: 01-04-2023 Registered Referred [facility] Start: 12-26-2022 End: 12-26-2022 ambulatory [facility] Work Phone: Start: 12-26-2022 End: 12-26-2022 Departed Referred [facility] Start: 12-22-2022 ambulatory Abiola Connolly PA-C Work Phone: [facility] Start: 12-19-2022 End: 12-19-2022 Departed [facility]erred [facility] Start: 12-19-2022 [facility] Start: 12-14-2022 End: 12-14-2022 Subsequent hospital visit by physician Enriqueta Xr Exam Room 1 [facility] Comment on above: Right knee pain, uns pecified chronicity Start: 12-12-2022 Orders Only Abiola Connolly PA-C Work Phone: [facility] Medicine Comment on above: Right knee pain, uns pecified chronicity (Primary Dx) Start: 12-01-2022 End: 12-01-2022 ambulatory [facility] Work Phone: Start: 12-01-2022 End: 12-01-2022 Departed Referred [facility] Start: 12-01-2022 Registered Referred [facility] Start: 11-24-2022 End: 11-24-2022 Departed Referred [facility] Start: 11-24-2022 Registered Referred [facility] Start: 11-17-2022 End: 11-17-2022 ambulatory [facility] Work Phone: Start: 11-17-2022 End: 11-17-2022 Departed Referred [facility] Start: 11-17-2022 Registered Referred [facility] Start: 10-19-2022 End: 10-19-2022 ambulatory [facility] Work Phone: Start: 10-19-2022 End: 10-19-2022 Departed Referred [facility] Start: 10-19-2022 Registered Referred [facility] Start: 10-17-2022 End: 10-17-2022 ambulatory [facility] Work Phone: Start: 10-17-2022 End: 10-17-2022 [facility] Start: 10-17-2022 [facility] Start: 09-26-2022 End: 09-26-2022 ambulatory [facility] Work Phone: Start: 09-26-2022 End: 09-26-2022 Departed Referred [facility] Start: 09-19-2022 End: 09-19-2022 Departed Referred [facility] Start: 08-18-2022 End: 08-18-2022 ambulatory [facility] Work Phone: Start: 08-18-2022 End: 08-18-2022 Departed Referred [facility] Start: 08-18-2022 Registered Referred [facility] Start: 08-16-2022 End: 08-16-2022 ambulatory [facility] Work Phone: Start: 08-16-2022 End: 08-16-2022 Departed Referred [facility] Start: 08-16-2022 Registered Referred [facility] Start: 08-03-2022 End: 08-03-2022 ambulatory [facility] Work Phone: Start: 08-03-2022 End: 08-03-2022 Departed Referred [facility] Start: 07-12-2022 Telephone encounter Neto duque MD Work Phone: [facility] Medical [facility]opedics [facility] Sports Medicine [place] Comment on above: OTHER Start: 07-04-2022 Registered Referred [facility] Start: 06-27-2022 Registered Referred [facility] Start: 06-13-2022 End: 06-13-2022 ambulatory [facility] Work Phone: Start: 06-13-2022 End: 06-13-2022 Departed Referred [facility] Start: 06-13-2022 Registered Referred [facility] Start: 06-09-2022 End: 06-09-2022 ambulatory [facility] Work Phone: Start: 06-09-2022 End: 06-09-2022 Departed Referred [facility] Start: 05-30-2022 End: 06-05-2022 Evaluation and management of inpatient Kwesi Decker DO Work Phone: [facility] Comment on above: Closed displaced fra cture of left femoral neck (HCC) (Primary Dx); Syncope and collapse; Acute pain of left shoulder; Left hip pain; Acute traumatic pain; Fall at home, initial encounter Start: 05-18-2022 [facility] Start: 05-18-2022 End: 05-18-2022 Subsequent hospital visit by physician Abiola Connolly PA-C Work Phone: [facility] Comment on above: Arthritis of knee, r ight Start: 05-05-2022 ambulatory Kianna Izquierdo [facility] Start: 05-05-2022 End: 05-05-2022 Subsequent hospital visit by physician Osmin Segovia PA-C Work Phone: [facility] [employer] [facility] Comment on above: Left shoulder pain, unspecified chronicity Start: 04-28-2022 ambulatory Kianna Monikaalexa [facility] Start: 04-28-2022 End: 04-28-2022 Subsequent hospital visit by physician Osmin Segovia PA-C Work Phone: [facility] [employer] [facility] Start: 04-25-2022 End: 04-25-2022 ambulatory [facility] Work Phone: Start: 04-25-2022 End: 04-25-2022 Departed Referred [facility] Start: 03-25-2022 End: 03-25-2022 ambulatory [facility] Work Phone: Start: 03-25-2022 End: 03-25-2022 Departed Referred [facility] [employer] [facility] Start: 03-25-2022 Registered Referred [facility] [employer] [facility] Start: 03-14-2022 End: 03-14-2022 ambulatory [facility] Work Phone: Start: 03-14-2022 End: 03-14-2022 Departed Referred [facility] [employer] [facility] Start: 03-03-[address] [facility] Start: 03-03-2022 End: 03-03-2022 Subsequent hospital visit by physician Nurys GONZALEZ [facility] Comment on above: Glenohumeral arthrit is, left; S/P reverse total shoulder arthroplasty, left Start: 01-18-2022 End: 01-19-2022 ambulatory Kim Muhammad [facility] Start: 01-18-2022 End: 01-19-2022 Subsequent hospital visit by physician Kim Muhammad MD Work Phone: 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) Start: 01-17-2022 Registered Referred [facility] Start: 01-13-2022 ambulatory UNKNOWN PROVIDER [facility] Start: 01-11-2022 ambulatory Kim Muhammad [facility] Start: 01-06-2022 End: 01-07-2022 Evaluation and management of inpatient UNKNOWN PROVIDER [facility] Start: 12-27-2021 ambulatory Kim Muhammad [facility] Start: 12-20-2021 End: 12-20-2021 Departed Referred [facility] Start: 12-20-2021 Registered Referred [facility] Start: 12-13-2021 End: 12-13-2021 Departed Referred [facility] Start: 12-13-2021 Registered Referred [facility] Start: 11-29-2021 End: 11-29-2021 Departed Referred [facility] Start: 11-05-2021 End: 11-05-2021 Departed Referred [facility] Start: 11-05-2021 Registered Referred [facility] Start: 09-24-2021 Registered Referred [facility] Start: 12-25-2020 End: 12-25-2020 Subsequent hospital visit by physician Jayesh Loera MD Work Phone: [facility] Card Pulm Rehab Comment on above: Arrived Start: 12-07-2020 End: 12-07-2020 Subsequent hospital visit by physician Opal Espinoza MD Work Phone: [facility] [place] [employer] [facility] Comment on above: Chronic left shoulde r pain Start: 11-17-2020 End: 11-17-2020 Subsequent hospital visit by physician Jayesh Loera Work Phone: [facility] [place] [facility] Comment on above: Arrived Procedures Date Procedure Procedure Detail Performing Clinician Start: 09-26-2024 Basic metabolic pane l calcium total Dennis Ilodi DO Work Phone: Start: 09-25-2024 Iadna-dna/rna gi pth gn multiplex probe tq 08-07 Dennis Davies DO Work Phone: Start: 09-25-2024 Inf agent det nuclei c acid clostridium amp probe Dennis Davies DO Work Phone: Start: 09-25-2024 Thyrotropin [Units/v olume] in Serum or Plasma Muna Edmonds MD Work Phone: Start: 09-25-2024 Basic metabolic pane l calcium total Dennis Davies DO Work Phone: Start: 09-24-2024 Smr prim src gram/gi emsa stain bct fungi/cell Dennis Dvaies DO Work Phone: Start: 09-24-2024 Antibody screen RONIT LONGORIA Comment on above: Order Comment: Don't collect this lab until patient identity is updated. Performed By: #### L [id number] ####New Accounts Clerk: STAR DE LA ROSA ([phone])[facility] ([facility])[address] [place] [address] Start: 09-24-2024 Comprehensive metabo lic panel Lashon Sullivan MD Work Phone: Start: 09-24-2024 End: 09-24-2024 Drug assay carbamazepine total Shweta Carson MANAGER PROJECT - GENERAL LABOR FORKLIFT OPERATOR Work Phone: Start: 09-23-2024 Iaadiadoo not otherw ise specified Lashon Sullivan MD Work Phone: Start: 09-23-2024 BLOOD CULTURE IDENTIFICATION - AEROBIC Anitra Villatoro MD Work Phone: Start: 09-23-2024 Ct cervical spine w/ o contrast material Anitra Villatoro MD Work Phone: Start: 09-23-2024 Ct head/brain w/o co ntrast material Anitra Villatoro MD Work Phone: Start: 09-23-2024 Ct thorax w/o contra st material Anitra Villatoro MD Work Phone: Start: 09-23-2024 End: 09-23-2024 Bacteria identified in Blood by Culture Anitra Villatoro MD Work Phone: Start: 09-23-2024 Radiologic examinati on pelvis 1/2 views Anitra Villatoro MD Work Phone: Start: 09-23-2024 Radiologic exam ches t single view Anitra Villatoro MD Work Phone: Start: 09-23-2024 Respiratory pathogen s DNA and RNA panel - Nasopharynx by KAMLA with non-probe detection Dennis Davies DO Work Phone: Start: 09-23-2024 SARS-COV-2, FLU A/B, AND RSV COMBO Anitra Villatoro MD Work Phone: Start: 09-23-2024 Antibody screen RONIT LONGORIA Comment on above: Performed By: #### L [id number] ####New Accounts Clerk: STAR DE LA ROSA ([id number])[facility] ([facility])[address] [place] [address] Start: 09-23-2024 ABO and Rh group [Ty pe] in Blood by Confirmatory method Anitra Villatoro MD Work Phone: Start: 09-23-2024 Basic metabolic pane l calcium total Anitra Villatoro MD Work Phone: Start: 09-23-2024 Drug test def 1-7 classes Anitra Villatoro MD Work Phone: Start: 06-18-2024 Mri any jt lower ext rem w/o contrast matrl Almas Laureano MD Work Phone: Start: 07-25-2023 Lipid 1996 panel - S erika or Plasma Jaimee Ramírez PA-C Work Phone: Start: 07-23-2023 Thyrotropin [Units/v olume] in Serum or Plasma Jaimee Ramírez PA-C Work Phone: Start: 06-26-2023 Urine culture Start: 06-20-2023 Urine culture Start: 05-31-2023 Radiologic examinati on knee 1/2 views Abiola Connolly PA-C Work Phone: Start: 02-08-2023 Radiologic examinati on knee 1/2 views Abiola Danielleo PA-C Work Phone: Start: 01-13-2023 Basic metabolic pane l calcium total Abiola Connolly PA-C Work Phone: Start: 01-12-2023 Peripheral block anesthesia Delia Uribe MANAGER PROJECT - BREAKER MACHINE TENDER Work Phone: Start: 01-12-2023 Spinal anesthesia Binh Howe MANAGER PROJECT - BREAKER MACHINE TENDER Start: 01-12-2023 End: 01-12-2023 Arthrp kne condyle&platu medial&lat compartments Almas Laureano MD Work Phone: Start: 01-12-2023 Ecg routine ecg w/le ast 12 lds trcg only w/o i&r Abiola Castelanlio PA-C Work Phone: Start: 06-05-2022 COVID-19 Radha batista MANAGER PROJECT - EDUCATION ADVISER Work Phone: Start: 06-03-2022 Basic metabolic pane l calcium total Jeannine Balderasnadia PA-C Work Phone: Start: 06-02-2022 Dup-scan xtr veins c omplete bilateral study Earl Richardson PA-C Work Phone: Start: 06-01-2022 OPERATIVE REPORT Physic [facility] Start: 06-01-2022 Assay of lactate Jordan Lugo MD Work Phone: Start: 06-01-2022 BASIC METABOLIC PANE L W/ REFLEX TO MG FOR LOW K Cecy Lugo MD Work Phone: Start: 05-31-2022 Radex foot complete minimum 3 views Gillian Sykes MD Work Phone: Start: 05-31-2022 Radiologic examinati on pelvis 1/2 views Gillian Sykes MD Work Phone: Start: 05-31-2022 BASIC METABOLIC PANE L W/ REFLEX TO MG FOR LOW K Radha Moon MANAGER PROJECT - EDUCATION ADVISER Work Phone: Start: 05-31-2022 Blood count complete auto&auto difrntl wbc Radha Moon MANAGER PROJECT - EDUCATION ADVISER Work Phone: Start: 05-30-2022 Radiologic examinati on tibia & fibula 2 views Erlinda Ruth MD Work Phone: Start: 05-30-2022 Ct head/brain w/o co ntrast material Radha Moon MANAGER PROJECT - EDUCATION ADVISER Work Phone: Start: 05-30-2022 Radiologic exam ches t single view Lalit Monroy Griffin DO Work Phone: Start: 05-30-2022 Antibody screen Kwesi Decker DO Work Phone: Start: 05-30-2022 End: 05-30-2022 Radex elbow complete minimum 3 views Margaret Cuevas MANAGER PROJECT - GENERAL LABOR FORKLIFT OPERATOR Work Phone: Start: 05-30-2022 Ecg routine ecg w/le ast 12 lds w/i&r Kwesi Decker DO Work Phone: Start: 05-30-2022 Ct cervical spine w/ o contrast material Cayla Madrigal MD Work Phone: Start: 05-30-2022 Ct head/brain w/o co ntrast material Cayla Madrigal MD Work Phone: Start: 05-30-2022 Blood typing serologic abo Maurizio Toro MD Work Phone: Start: 05-30-2022 Assay of ethanol Maurizio Toro MD Work Phone: Start: 05-30-2022 Basic metabolic pane l calcium total Maurizio Toro MD Work Phone: Start: 05-30-2022 PROTIME/INR & PTT Sheron Toro MD Work Phone: Start: 05-18-2022 End: 05-18-2022 Radiologic examination knee 1/2 views Abiola Connolly PA-C Work Phone: Start: 01-19-2022 Urnls dip stick/tabl et rgnt auto w/o microscopy Nola Morrison MANAGER PROJECT - GENERAL LABOR FORKLIFT OPERATOR Work Phone: Start: 01-19-2022 Comprehensive metabo lic panel Amaury Moreira MD Work Phone: Start: 01-18-2022 OPERATIVE REPORT Physic [facility] Generic Start: 01-18-2022 Radex shoulder compl ete minimum 2 views Familia Esparza MD Work Phone: Start: 12-07-2020 Radex shoulder compl ete minimum 2 views Opal Espinoza MD Work Phone: Start: 11-17-2020 Brncdilat rspse spmt ry pre&post-brncdilat admn Jayesh Loera Work Phone: Start: 07-27-2020 Ecg routine ecg w/le ast 12 lds i&r only Clostridium difficil e detection Plan of Treatment Date Care Activity Detail Author Start: 07-23-2033 DTaP/Tdap/Td Vaccine s (2 - Td or Tdap) DTaP/Tdap/Td Vaccines (2 - Td or Tdap) [facility] Start: 07-25-2028 Lipid panel Lipid Panel [facility] Start: 09-25-2025 Thyroid stimulating hormone measurement TSH Level [facility] Start: 04-14-2025 Influenza vaccination Influenza Vacc ine (#1) [facility] Start: 03-12-2025 End: 03-12-2025 Patient encounter procedure 03/12/2025 3:15 PM EDT Office Visit [facility] [address] [place] [address] [place] [address] Almas Laureano MD [address] [place] [address] [facility] Start: 02-24-2025 End: 02-24-2026 XR Lumbar spine Views W flexion and W extension XR lumbar spine 4-5 view Imaging Routine Lumbar pain Expected: 02/24/2025, Expires: 02/24/2026 [facility] [employer] Work Phone: Comment on above: Expected: 02/24/2025 , Expires: 02/24/2026 Start: 08-14-2024 Medicare Advantage Annual Wellness Visit Medicare Advantage Annual Wellness Visit [facility] Start: 07-25-2024 Diabetes mellitus screening Diabetes Screening [facility] Start: 07-23-2024 Thyroid stimulating hormone measurement TSH Level [facility] Start: 2024 RSV Immunization for Adults (1 - 1-dose 75+ series) RSV Immunization for Adults (1 - 1-dose 75+ series) [facility] Start: 04-14-2024 COVID-19 Vaccine ( season) COVID-19 Vaccine ( season) [facility] Start: 04-14-2024 COVID-19 Vaccine ( season) COVID-19 Vaccine () [facility] Start: 04-14-2024 Influenza vaccination [facility] Start: 12-22-2023 End: 12-22-2023 Patient encounter procedure 12/22/2023 11:00 AM EDT Appointment [facility] [address] [place] [address] Almas Laureano MD [address] [facility] [address] [place] [id number] [facility] [address] Start: 09-13-2023 End: 09-13-2024 MR Chest WO contrast MR hip right wo Imaging Routine Right hip pain Expected: 09/13/2023, Expires: 09/13/2024 [facility] [employer] Work Phone: Comment on above: Expected: 09/13/2023 , Expires: 09/13/2024 Start: 09-13-2023 End: 09-13-2023 Patient encounter procedure 09/13/2023 9:00 AM EST Office Visit [facility] Sports Medicine [facility]note 3] [place] [address] Almas Laureano MD [address] [facility] [address] [place] [address] [facility] Start: 09-11-2023 End: 09-11-2024 XR Hip - right 3 Views XR hip right 2 or 3 views Imaging Routine Right hip pain Expected: 09/11/2023, Expires: 09/11/2024 [facility] Work Phone: Comment on above: Expected: 09/11/2023 , Expires: 09/11/2024 Start: 08-30-2023 End: 08-30-2023 Patient encounter procedure 08/30/2023 1:45 PM EST Office Visit [facility] [address] [place] [address] [place] [phone] Almas Laureano MD [address] [place] [address] [address] [place] [address] [facility] Start: 08-14-2023 Medicare Advantage Annual Wellness Visit Medicare Advantage Annual Wellness Visit [facility] Start: 05-31-2023 End: 05-31-2024 C reactive protein [Mass/volume] in Serum or Plasma C-reactive protein Lab Routine Status post total right knee replacement Primary osteoarthritis of right knee Expected: 05/31/2023 (Approximate), Expires: 05/31/2024 [facility] Comment on above: Expected: 05/31/2023 (Approximate), Expires: 05/31/2024 Start: 05-31-2023 End: 05-31-2024 Erythrocyte sedimentation rate Sedimentation rate, automated Lab Routine Status post total right knee replacement Primary osteoarthritis of right knee Expected: 05/31/2023 (Approximate), Expires: 05/31/2024 [facility] [employer] Work Phone: Comment on above: Expected: 05/31/2023 (Approximate), Expires: 05/31/2024 Start: 05-17-2023 End: 05-17-2023 Patient encounter procedure 05/17/2023 9:00 AM EDT Office Visit [facility] [address] [place] [address] [place] [id number] Almas Laureano MD [address] [facility] [address] [place], [place] [phone] [facility] Start: 04-14-2023 COVID-19 Vaccine ( season) COVID-19 Vaccine () [facility] Start: 04-14-2023 Influenza vaccination S [facility] Start: 02-08-2023 End: 02-08-2023 Patient encounter procedure 02/08/2023 1:00 PM EDT Office Visit [facility] Orth[facility] and Sports Medicine [address] [place] [address] Abiola Connolly PA-C [address] [facility] [address] [place], [place] [phone] [facility] Start: 02-01-2023 End: 02-02-2024 XR Knee - right 1 or 2 Views XR knee 1 or 2 views right Imaging Routine S/P total knee arthroplasty, right Expected: 02/01/2023, Expires: 02/02/2024 [facility] Comment on above: Expected: 02/01/2023 , Expires: 02/02/2024 Start: 02-01-2023 End: 02-02-2024 XR knees anteroposterior standing bilateral XR knees anteroposterior standing bilateral Imaging Routine S/P total knee arthroplasty, right Expected: 02/01/2023, Expires: 02/02/2024 [facility] Work Phone: Comment on above: Expected: 02/01/2023 , Expires: 02/02/2024 Start: 01-12-2023 End: 01-12-2023 Admission to same day surgery center 01/12/2023 Surgery Procedural Almas Laureano MD [address] [facility] [address] [place], [place] [id number] Right Total Knee Arthroplasty [84019 (CPT )] [facility] Comment on above: Right Total Knee Art hroplasty [10221 (CPT )] Start: 01-12-2023 End: 01-12-2023 Arthrp kne condyle&platu medial&lat compartments [facility] Operating Room Start: 01-12-2023 Subsequent hospital visit by physician 01/12/2023 Hospital Encounter Procedural Almas Laureano MD [address] [facility] [address] [place] [address] [facility] Start: 01-05-2023 End: 01-05-2023 Admission to establishment 01/05/2023 Pre-Admission Testing Pre-Admission Testing [facility] Pre-Admit Testing Start: 12-14-2022 End: 12-14-2022 Patient encounter procedure 12/14/2022 Office Visit Orthopedic Surgery Almas Laureano MD [address] [facility] [address] [place], [place] [phone] [facility] Start: 12-12-2022 End: 12-13-2023 XR Knee - right 1 or 2 Views XR knee 1 or 2 views right Imaging Routine Right knee pain, unspecified chronicity Expected: 12/12/2022, Expires: 12/13/2023 [facility] Comment on above: Expected: 12/12/2022 , Expires: 12/13/2023 Start: 12-12-2022 End: 12-13-2023 XR knees anteroposterior standing bilateral XR knees anteroposterior standing bilateral Imaging Routine Right knee pain, unspecified chronicity Expected: 12/12/2022, Expires: 12/13/2023 [facility] [employer] [facility] Work Phone: Comment on above: Expected: 12/12/2022 , Expires: 12/13/2023 Start: 08-17-2022 End: 08-17-2022 Patient encounter procedure 08/17/2022 Office Visit Orthopedic Surgery Almas Laureano MD [address] [facility] [address] [place], [place] [phone] [facility] Start: 06-01-2022 Annual Wellness Visi t (AWV) Annual Wellness Visit (AWV) [facility] Start: 05-18-2022 End: 05-18-2022 Patient encounter procedure 05/18/2022 Office Visit Orthopedic Surgery Almas Laureano MD [address] [facility] [address] [place] [address] [facility] [place] Start: 05-18-2022 End: 05-18-2022 Nursing evaluation of patient and report 05/18/2022 Nurse Only Orthopedic Surgery [facility] [place] Start: 05-05-2022 End: 05-05-2022 Patient encounter procedure 05/05/2022 Office Visit Orthopedic Surgery Kim Muhammad MD [address] [facility] [address] [place] [address] [facility] [place] Start: 05-05-2022 End: 05-05-2022 Nursing evaluation of patient and report 05/05/2022 Nurse Only Orthopedic Surgery [facility] [place] Start: 04-28-2022 End: 04-28-2022 Patient encounter procedure 04/28/2022 Office Visit Orthopedic Surgery Kim Muhammad MD [address] [facility] [address] [place] [address] [facility] [place] Start: 04-28-2022 End: 04-28-2022 Nursing evaluation of patient and report 04/28/2022 Nurse Only Orthopedic Surgery [facility] [place] Start: 04-14-2022 Influenza vaccination [facility] Start: 03-14-2022 Influenza vaccination Flu vaccine (# 1) [facility] Start: 01-27-2022 COVID-19 Vaccine (4 - Booster for Pfizer series) COVID-19 Vaccine (4 - Booster for Pfizer series) [facility] Start: 01-27-2022 COVID-19 Vaccine (4 - Pfizer series) COVID-19 Vaccine (4 - Pfizer series) [facility] Start: 01-24-2022 End: 01-24-2022 Patient encounter procedure 01/24/2022 Office Visit Orthopedic Surgery Nurys Leong PA [address] [facility] [address] [place] [address] [facility] [place] Start: 01-24-2022 End: 01-24-2022 Nursing evaluation of patient and report 01/24/2022 Nurse Only Orthopedic Surgery [facility] [place] Start: 11-27-2021 DTaP/Tdap/Td vaccine (2 - Tdap) DTaP/Tdap/Td vaccine (2 - Tdap) [facility] Start: 04-14-2021 Influenza vaccination Flu vacc ine (Season Ended) [facility] Work Phone: Start: 01-24-2021 Annual Wellness Visi t (AWV) Annual Wellness Visit (AWV) [facility] Start: 01-18-2021 End: 01-18-2021 Patient encounter procedure 01/18/2021 Office Visit Sports Medicine [facility] [place] Start: 12-03-2020 End: 12-03-2020 Office Visit 12/03/2020 Office Visit Sports Medicine Sid Camarena MD [address] [facility] [address] [place], [place] [id number] [facility] [place] Start: 10-04-2020 Annual Wellness Visi t (AWV) Annual Wellness Visit (AWV) [facility] Work Phone: Start: 09-30-2020 COVID-19 Vaccine (2 - Pfizer 2-dose series) COVID-19 Vaccine (2 - Pfizer 2-dose series) [facility] Work Phone: Start: 2014 Pneumococcal 65+ yea rs Vaccine (1 - PCV) Pneumococcal 65+ years Vaccine (1 - PCV) [facility] Start: 2014 Pneumococcal 65+ yea rs Vaccine (1 of 1 - PPSV23) Pneumococcal 65+ years Vaccine (1 of 1 - PPSV23) [facility] Work Phone: Start: 2009 RSV Immunization age d 60 or older (1 - 1-dose 60+ series) RSV Immunization aged 60 or older (1 - 1-dose 60+ series) [facility] Start: 2009 RSV Immunization for Adults (1 - Risk 60-74 years 1-dose series) RSV Immunization for Adults (1 - Risk 60-74 years 1-dose series) [facility] Start: 2004 Screening for osteoporosis DEXA (modify frequency per FRAX score) [facility] Start: 1999 Pneumococcal Vaccine : 50+ Years (1 of 1 - PCV) Pneumococcal Vaccine: 50+ Years (1 of 1 - PCV) [facility] Start: 1999 Screening for malign ant neoplasm of breast Breast cancer screen [facility] Start: 1999 Screening for malign ant neoplasm of colon Colon cancer screen colonoscopy [facility] Work Phone: Start: 1999 Shingles Vaccine (1 of 2) Shingles Vaccine (1 of 2) [facility] Start: 1999 Zoster Vaccines (1 of 2) Zoster Vacc kesha (1 of 2) [facility] Start: 1994 Screening for malign ant neoplasm of colon [facility] Start: 1989 Screening for malign ant neoplasm of breast Mammogram [facility] Start: 1968 DTaP/Tdap/Td vaccine (1 - Tdap) DTaP/Tdap/Td vaccine (1 - Tdap) [facility] Start: 1968 DTaP/Tdap/Td Vaccine s (1 - Tdap) DTaP/Tdap/Td Vaccines (1 - Tdap) [facility] Start: 1968 Pneumococcal Vaccine : 50+ Years (1 of 2 - PCV) Pneumococcal Vaccine: 50+ Years (1 of 2 - PCV) [facility] Start: 1967 Diabetes mellitus screening Diabetes Screening [facility] Start: 1967 Hepatitis C screening S [facility] Start: 1961 Depression Monitoring Depression Mon itoring [facility] Start: 1961 Depression Screen Depression Screen [facility] Start: 1961 Depression Screening Depression Scre ening [facility] Start: 1961 Depresssion Monitoring Depresssion M onitoring [facility] Start: 1959 Lipid panel [facility] Start: 1955 Pneumococcal Vaccine : 65+ Years (1 - PCV) Pneumococcal Vaccine: 65+ Years (1 - PCV) [facility] Start: 1955 Pneumococcal Vaccine : 65+ Years (1 of 2 - PCV) Pneumococcal Vaccine: 65+ Years (1 of 2 - PCV) [facility] Start: 1949 COVID-19 Vaccine (#1) COVID-19 Vacci ne (#1) [facility] Start: 1949 Annual Wellness Visi t (AWV) Annual Wellness Visit (AWV) [facility] Start: 1949 Hepatitis B Vaccines (1 of 3 - 3-dose series) Hepatitis B Vaccines (1 of 3 - 3-dose series) [facility] Start: 1949 Hepatitis C screening Hepatitis C sc reen [facility] Work Phone: Start: 1949 Lipid panel Lipid Panel [facility] Start: 1949 Medicare Advantage Annual Wellness Visit (AWV) Medicare Advantage Annual Wellness Visit (AWV) [facility] Start: 1949 Screening for malign ant neoplasm of colon [facility] Start: 1949 Screening for osteoporosis Bone Density Scan [facility] Start: 1949 Thyroid stimulating hormone measurement TSH Level [facility] Bacteria identified in Blood by Culture Blood culture Site #1 - Suspected Infection Microbiology STAT 09/23/2024 11:06 AM EST [facility] End: 06-01-2022 Basic metabolic 2000 panel - Serum or Plasma Basic Metabolic Panel Lab Routine Tomorrow AM for 1 Occurrences starting 06/01/2022 until 06/01/2022 [facility] Work Phone: Comment on above: Tomorrow AM for 1 Oc currences starting 06/01/2022 until 06/01/2022 Basic metabolic 2000 panel - Serum or Plasma Basic Metabolic Panel Lab Routine 06/01/2022 1:41 AM EDT [facility] Work Phone: End: 01-19-2022 CBC panel - Blood by Automated count CBC Lab Routine Tomorrow AM for 1 Occurrences starting 01/19/2022 until 01/19/2022 [facility] Work Phone: Comment on above: Tomorrow AM for 1 Oc currences starting 01/19/2022 until 01/19/2022 CBC panel - Blood by Automated count CBC Lab Routine 01/19/2022 4:15 AM EDT [employer] Work Phone: End: 06-01-2022 CBC panel - Blood by Automated count CBC Lab Timed Tomorrow AM for 1 Occurrences starting 06/01/2022 until 06/01/2022 [employer] Work Phone: Comment on above: Tomorrow AM for 1 Oc currences starting 06/01/2022 until 06/01/2022 CBC panel - Blood by Automated count CBC Lab Timed 06/01/2022 1:41 AM EDT [employer] Work Phone: End: 06-01-2022 FL Greater Than 1 Hour [employer] Work Phone: Comment on above: Once for 1 Occurrenc es starting 06/01/2022 until 06/01/2022 End: 06-01-2022 Intermittent pulse oximetry Pulse Oximetry Spot Check Respiratory Care Routine One Time for 1 Occurrences starting 06/01/2022 until 06/01/2022 [employer] Work Phone: Comment on above: One Time for 1 Occur rences starting 06/01/2022 until 06/01/2022 End: 09-23-2024 Legionella and Streptococcus Urine Antigen [employer] Work Phone: Comment on above: Once (Lab) for 1 Occ urrences starting 09/23/2024 until 09/23/2024 OUTSIDE PROCEDURE SCAN OUTSIDE P ROCEDURE SCAN Procedures Ordered: 11/23/2023 [employer] Comment on above: Ordered: 11/23/2023 Oxygen therapy [Mini mum Data Set] Initiate Oxygen Therapy Protocol Respiratory Care Routine As Needed until discontinued starting 01/18/2022 [employer] Work Phone: Comment on above: As Needed until disc ontinued starting 01/18/2022 Oxygen therapy [Mini mum Data Set] Initiate Oxygen Therapy Protocol Respiratory Care Routine As Needed until discontinued starting 05/30/2022 [employer] Work Phone: Comment on above: As Needed until disc ontinued starting 05/30/2022 End: 05-30-2022 Troponin I.cardiac [Mass/volume] in Serum or Plasma Troponin Lab Timed One Time for 1 Occurrences starting 05/30/2022 until 05/30/2022 [employer] Work Phone: Comment on above: One Time for 1 Occur rences starting 05/30/2022 until 05/30/2022 End: 05-30-2022 Urinalysis Urinalysis Lab STAT Once for 1 Occurrences starting 05/30/2022 until 05/30/2022 [employer] Work Phone: Comment on above: Once for 1 Occurrenc es starting 05/30/2022 until 05/30/2022 End: 05-30-2022 Urine Drug Screen Urine Drug Screen Lab STAT Once for 1 Occurrences starting 05/30/2022 until 05/30/2022 [facility] Work Phone: Comment on above: Once for 1 Occurrenc es starting 05/30/2022 until 05/30/2022 End: 09-23-2024 Urine Hold Cup Urine Hold Cup Lab Timed Once for 1 Occurrences starting 09/23/2024 until 09/23/2024 [employer] Comment on above: Once for 1 Occurrenc es starting 09/23/2024 until 09/23/2024 End: 09-23-2024 US TRAUMA FAST POCUS [facility] [employer] Work Phone: Comment on above: Once for 1 Occurrenc es starting 09/23/2024 until 09/23/2024 VL DUP LOWER EXTREMI TY VENOUS BILATERAL VL DUP LOWER EXTREMITY VENOUS BILATERAL Imaging Routine Every Mo,Th until discontinued starting 06/02/2022, 1 completed [employer] Work Phone: Comment on above: Every Mo,Th until di scontinued starting 06/02/2022, 1 completed End: 09-13-2023 XR Hip - right 3 Views [employer] Work Phone: Comment on above: Once for 1 Occurrenc es starting 09/13/2023 until 09/13/2023 End: 12-14-2022 XR Knee - right 1 or 2 Views [employer] Comment on above: Once for 1 Occurrenc es starting 12/14/2022 until 12/14/2022 End: 01-12-2023 XR Knee - right 1 or 2 Views [employer] Work Phone: Comment on above: Once for 1 Occurrenc es starting 01/12/2023 until 01/12/2023 End: 12-14-2022 XR knees anteroposterior standing bilateral [employer] Work Phone: Comment on above: Once for 1 Occurrenc es starting 12/14/2022 until 12/14/2022 End: 02-25-2025 XR Lumbar spine Views W flexion and W extension [employer] Comment on above: Once for 1 Occurrenc es starting 02/25/2025 until 02/25/2025 End: 03-03-2022 XR Shoulder Left 2 VW [employer] Work Phone: Comment on above: 1 Occurrences starti ng 03/03/2022 until 03/03/2022 End: 05-05-2022 XR Shoulder Left 2 VW [employer] Work Phone: Comment on above: 1 Occurrences starti ng 05/05/2022 until 05/05/2022 Immunizations Immunization Date Immunization Notes Care Provider Fa [facility] 07-23-2023 tetanus toxoid, redu dina diphtheria toxoid, and acellular pertussis vaccine, adsorbed Jaimee Ramírez PA-C Work Phone: [employer] 12-02-2021 Covid-19, Pfizer Gra y Top, Do Not Dilute, (Age 12 Y+), Im, L Abiola Connolly PA-C Work Phone: [employer] 06-03-2021 Pfizer SARS-CoV-2 Vaccination Abiola Connolly PA-C Work Phone: [employer] 09-09-2020 Pfizer SARS-CoV-2 Vaccination Abiola Connolly PA-C Work Phone: [employer] 06-02-2016 influenza virus vacc ine, unspecified formulation Abiola Connolly PA-C Work Phone: [facility] [employer] Payers Date Payer Category Payer Self-pay [id number] 2024 Unknown [id number] 2023 Medicare HMO [id number] 2023 Unknown [id number] 2022 Medicare 2020 Medicaid [id number] 2020 Medicaid [id number] [id number] 2016 Medicare MEDICARE MEDICAR E PART A AND B [id number] 2016-[facility] [phone] [place] [address] [id number] 1949 Unknown [id number] [id number] 1949 Unknown [id number] 2.840.1.157418.3.579.2. 1949 Unknown [id number] 2.16840.1.247549.3.579.2. 1949 Unknown [id number] 2.16840.1.025310.3.579.2. 1949 Unknown [id number] 2.16840.1.913452.3.579.2. 1949 Unknown [id number] 2.16840.1.979864.3.579.2 1949 Unknown [id number] 2.16.840.1.090261.3.579.2.668 1949 Unknown [id number] 2.16.840.1.659301.3.579.2.8 1949 Unknown [id number] 2.16.840.1.201047.3.579.2.8 1949 Unknown [id number] 2.16.840.1.256443.3.579.2.668 1949 Unknown [id number] 2.16.840.1.317710.3.579.2.668 Unknown Unknown [id number] 2.16.840.1.986464.3.579.2.462 Unknown [id number] 2.16.840.1.247301.3.579.2.462 Unknown [id number] 2.16.840.1.582903.3.579.2.462 Unknown [id number] 2.16.840.1.092393.3.579.2.462 Unknown [id number] 2.16.840.1.616536.3.579.2.462 Unknown [id number] [id number]2 Unknown [id number] Social History Date Type Detail Facility Start: 10-06-2020 End: 03-03-2022 Tobacco smoking status [facility] Former smoker [employer] Phone: Start: 10-06-2020 End: 07-19-2022 Tobacco use and exposure Never used [employer] Phone: Start: 10-06-2020 End: 02-25-2025 Alcohol intake Ex-drinker (finding) [employer] Phone: Start: 1950 Sex Assigned At Not on file [facility] [employer] Work Phone: Start: 1950 Sex Assigned At Female W [facility] End: 08-14-2011 History of tobacco use Current smoker [employer] Work Phone: Start: 01-08-2022 End: 02-08-2023 Exposure to SARS-CoV-2 (event) Not sure [employer] Work Phone: End: 08-14-2011 History of tobacco use Cigarette Smoker [employer] Work Phone: Tobacco smoking stat [facility] Tobacco smoking consumption unknown [facility] Start: 07-19-2022 Tobacco smoking stat [facility] Never smoked tobacco [facility] [employer] Start: 07-06-2022 History SDOH Alcohol Frequency 1 [facility] [employer] Start: 07-06-2022 History SDOH Alcohol Std Drinks 0 [employer] Start: 07-06-2022 End: 07-24-2023 History of Social function [employer] Start: 07-06-2022 End: 07-24-2023 Alcohol Use Disorder Identification Test - Consumption [AUDIT-C] [facility] [employer] How often to you hav e a drink containing alcohol? Never [facility] How many standard dr inks containing alcohol do you have on a typical day? Patient does not drink [facility] Do you belong to any clubs or organizations such as shinto groups, unions, fraternal or athletic groups, or school groups? No [facility] Do you feel stress - tense, restless, nervous, or anxious, or unable to sleep at night because your mind is troubled all the time - these days [OSQ] Very much [facility] (I/We) worried wheth er (my/our) food would run out before (I/we) got money to buy more. Never true [facility] Start: 03-14-2022 End: 10-18-2024 Sex Female (finding) [facility] NEGATED: Highlighted rowStart: NINF History of tobacco use Passive smoker [facility] [employer] Medical Equipment Procedure Code Equipment Code Equipment Origin al Text Equipment Identifier Dates Cement Bone Simp nick P Full - [id number] ()[id number], [id number] FDA Start: 01-12-2023 Attune Knee Syst em Tibial Insert Fixed Bearing Medial Stabilized Size 5 Right [id number] FDA Start: 01-12-2023 Patella Dome Med Attune 35mm - [id number] ()[id number] FDA Start: 01-12-2023 Attune Femoral Cruciate Retaining Size 5 Right Cemented ()[id number] FDA Start: 01-12-2023 Base Tib Cement Attune Fb Sz7 - [id number] ()[id number], [id number] FDA Start: 01-12-2023 Clinical Notes 01-07-2022 to 02-25-2025 Opal Espinoza MD - 02/25/2025 2:45 PM EDTPatient Elizabeth Nieves, RN - 09/27/2024 3:48 PM Pritesh Nieves, RN - 09/27/2024 3:48 PM Diogo Alexandre RN - 09/26/2024 10:00 AM EST Note Date & Type Note Facility 02-25-2025 History of Presen t illness Narrative Images from the original note were not included. [facility] [address] [place] [address] [place] [address] Dept: [phone] Dept Chief Complaint Patient presents with Follow-up Low Back Pain Subjective History of Present Illness: Andre Blanca is a 74 y.o. female who presents today for evaluation of back pain. Says she was diagnosed with scoliosis as a teenager and also mentions she has open wound on the end of her tailbone that drains every 2 months. Her back pain is located above the pelvis at the hip junction and bilateral. States it moves around to the front of her hips and does not radiate. It is a sharp pain and she difficulty getting up and down from a seated position. Says she has to lay on her right side because she broke her left hip and does have hardware. She is a resident at a assisted living facilty. 08/21/20 Location: midline and bilateral Onset: 10 years year, chronic Injury: no Quality: aching and sharp Radiation of symptoms: no Severity: 0/10 at rest and 7/10 at worst Exacerbating factor(s): flexion, extension, side bending, rotation, walking, prolonged standing, prolonged sitting, rising from a seated position, and climbing/descending stairs Relieving factor(s): rest and activity modification Timing: all day Low back red flags: Metastatic cancer: No Recent trauma: No Bowel or bladder incontinence: No Urinary retention: No Progressive lower extremity weakness or sensory loss: No Saddle anesthesia: No Spinal surgery in the last year: No IV drug abuse: No Unexplained weight loss: No Immunosuppression: No Chronic steroid use: No Fevers, chills, nights sweats: No Unremitting/rest pain: No Imaging to date: X-Ray Performed Today's Visit 02/25/25 Treatment to date: PT/OT/HEP: no Ice: yes, not helpful Heat: no Medications: Tylenol: NSAIDs: yes, Aleve/Naproxen, helpful Oral steroids: no Muscle relaxants: yes, Methocarbamol/Robaxin, not helpful Nerve medications: no Targeted injections: none Assistive devices: roll-aider Prior surgery: yes - left hip fracture Occupation: Retired, various jobs Fall risk assessment: Completed today. Have you had 2 or more falls in the last year? No Have you had a fall with injury in the last year? No Do you feel unsteady or worried about falling? No Objective Visit Vitals BP 118/79 Pulse 70 Physical Exam: General: Alert, well appearing, no acute distress. Respiratory: Breathing comfortably on room air. No respiratory distress. Skin: Warm, dry, intact. No visible rashes or erythema overlying area of focused exam. Physical Exam Musculoskeletal: Lumbar back: Tenderness present. No swelling, deformity, spasms or bony tenderness. Decreased range of motion. Negative right straight leg raise test and negative left straight leg raise test. Back: Comments: Strength Testing Hip Flexors (T12-L3) normal strength bilateral, no weakness Quad (L2-L4) normal strength bilateral, no weakness Tibialis Anterior (L4) normal strength bilateral, no weakness Extensor Hallusis Longus (L5) normal strength bilateral, no weakness Peroneus Longus (S1) normal strength bilateral, no weakness Gastroc (S1) normal strength bilateral, no weakness Sensation Testing Lateral Thigh (L1-L2) intact to light touch bilateral, no paresthesia Medial Knee (L3) intact to light touch bilateral, no paresthesia Medial Calf, Medial Foot (L4) intact to light touch bilateral, no paresthesia Lateral Calf, 1st web space (L5) intact to light touch bilateral, no paresthesia Lateral Foot (S1) intact to light touch bilateral, no paresthesia Reflexes Patella (L4) 2+ equal bilaterally Achilles (S1) 2+ equal bilaterally External Notes No pertinent interval updates Labs Lab Results Component Value Date HGBA1C 5.2 07/25/2023 Lab Results Component Value Date CREATININE 0.68 09/26/2024 Imaging Images reviewed with patient today I have personally reviewed the images pertinent to the appointment today EMG/NCT No interval studies Procedure No procedures completed today Assessment Diagnosis Plan 1. Spondylolysis, lumbosacral Ambulatory referral to Physical Therapy 2. Sacroiliac dysfunction Ambulatory referral to Physical Therapy 3. Lumbar pain XR lumbar spine 4-5 view Ambulatory referral to Physical Therapy Plan -Discussed with the patient the nature of lumbar radiculitis/ radiculopathy. -Discussed x-ray imaging results with patient. -Discussed options for activity modification, maintaining a normal level of activity as tolerated, avoiding bed rest. -Discussed possible treatment modalities including PT, muscle relaxants, corticosteroids, OTC analgesics including acetaminophen &/or NSAIDs. -Questions answered. -Will prescribe PT at home on their own with exercises given. and an outside facility - correction. -Written patient information provided in the AVS. -Reasons to call or return discussed with patient, including signs of worsening nerve dysfunction. -Will see back in ~6 weeks. No follow-ups on file. Opal Espinoza MD 02/25/2025 3:06 PM Please note that portions of this note may have been completed with voice recognition software. Documentation reviewed prior to signing but minor errors in wooden barrel mechanic may have occurred. documented in this encounter [employer] 02-25-2025 Instructions Opal Espinoza MD - 02/25/2025 2:45 PM EDT Images from the original note were not included. documented in this encounter [facility] 09-27-2024 Nurse Note Patient IV taken out. Patient discharged off unit in stable condition via private vehicle. [facility] 09-27-2024 Nurse Note Patient IV taken out. Patient discharged off unit in stable condition via private vehicle. Wound Care consulted for Pressure Injury Prevention. Pt's Rakan score= 18 on 09/25/2024 Pt's pressure points assessed. Pt's Heels, Buttocks/coccyx, Back, Elbows, Occiput and ears are all blanching and intact. No pressure injuries noted. Noted on assessment MASD wound to groin. Pericare provided and Zinc/Moisture Barrier ointment obtained and applied to pt. Instructed pt on pressure injury prevention and importance of turning/postioning every 2 hrs while in bed and every 15 min while sitting in chair. Pt verbalized understanding. Prevention Measures in place, including: [place] sheet with pillows in place, Bilateral) foam heel protectors obtained and applied to pt, Heels elevated off bed on pillows, Sacral foam obtained and applied to pt, Waffle chair cushion obtained for pt when up to chair. Skin Care precaution order set in place. Dietitian consult in place. PT/OT consult in place. D/W nursing staff skin assessment, preventions, and interventions implemented. Will continue to follow pt. Please [employer] for any questions or concerns. Kimmy Alexandre RN, BSN Wound Care consulted for Pressure Injury Prevention. Pt's Rakan score= 18 on 09/24 Pt's pressure points assessed. Pt's Heels, Buttocks/coccyx, Back, Elbows, Occiput and ears all intact. MASD noted to gluteal cleft. Prevention Measures in place, including: [place] sheet with pillows/wedges, Foam heel protectors (obtained and applied), Heels elevated off bed on pillows, Zinc/Moisture Barrier ointment, Waffle chair cushion (obtained for pt). Skin Care precaution order set in place. Dietitian consult N/A, nutrition subscore of 3. PT/OT consult in place. Will continue to follow pt. Please Voicera for any questions or concerns. Damari Wharton RN Pt's blood work attempted x2 this morning. Pt refusing anymore attempts at this time. Pt took 3 yellow colored rings off. This RN found them on the floor next to her bed. Placed in specimen cup with pt label on pt's bedside table. documented in this encounter [facility] 09-27-2024 Note Formatting of this n ote might be different from the original. Auth approved. TCC messaged attending to place orders, RN and SW to make aware of DC today. Discharge order placed. ROSALIO completed. TC tasked [facility] to set up transport. Transport set up for 3:00 pm. TCC notified RN and social secretary of time. TCC updated pt at bedside of DC and time and possible cost of transport. Pt verbalized understanding. TCC spoke to son via phone call to update and time. HOT SAW OPERATOR notified facility. TCC tasked [facility] to transmit discharge ordrers to SNF. Pt does not need PASR as she is a return to same facility. Discharge date updated and milestones completed. Pt will be transported to [facility] via ambulance transport today at 3:00 pm. [facility] 09-27-2024 Note Formatting of this n ote might be different from the original. Auth approved. TCC messaged attending to place orders, RN and SW to make aware of DC today. Discharge order placed. ROSALIO completed. TC tasked [facility] OPER[employer] to set up transport. Transport set up for 3:00 pm. TCC notified RN and social secretary of time. TCC updated pt at bedside of DC and time and possible cost of transport. Pt verbalized understanding. TCC spoke to son via phone call to update and time. HOT SAW OPERATOR notified facility. TCC tasked HOT SAW OPERATOR to transmit discharge ordrers to SNF. Pt does not need PASR as she is a return to same facility. Discharge date updated and milestones completed. Pt will be transported to [facility] via ambulance transport today at 3:00 pm. [facility] 09-27-2024 Miscellaneous Notes Auth approved. TCC messaged attending to place orders, RN and SW to make aware of DC today. Discharge order placed. ROSALIO completed. TC tasked HOT SAW OPERATOR to set up transport. Transport set up for 3:00 pm. TCC notified RN and social secretary of time. TCC updated pt at bedside of DC and time and possible cost of transport. Pt verbalized understanding. TCC spoke to son via phone call to update and time. HOT SAW OPERATOR notified facility. TCC tasked HOT SAW OPERATOR to transmit discharge ordrers to SNF. Pt does not need PASR as she is a return to same facility. Discharge date updated and milestones completed. Pt will be transported to [facility] via ambulance transport today at 3:00 pm. Confirmed pickup time of 3 pm by transport ChaoWIFI at phone number . Location of facility drop off is [facility]. Facility notified via KAYE Price notified on secure chat. MAR & Discharge med list transmitted to [facility] via [facility] per TCC request. Transport requested in [facility]. Awaiting time confirmation. Problem: Pain - Adult Goal: Verbalizes/displays adequate comfort level or baseline comfort level Outcome: Progressing Problem: Safety - Adult Goal: Free from fall injury Outcome: Progressing Problem: Knowledge Deficit Goal: Patient/family/caregiver demonstrates understanding of disease process, treatment plan, medications, and discharge instructions Outcome: Progressing Problem: Potential for Compromised Skin Integrity Goal: Skin Integrity is Maintained or Improved Outcome: Progressing Goal: Nutritional status is improving Outcome: Progressing Problem: Urinary Incontinence Goal: Perineal skin integrity is maintained or improved Outcome: Progressing Problem: Problem Interventions Goal: Assess Nutritional Intake Outcome: Progressing TCC updated SNF that plan to start auth today. TCC tasked Rosanna to start auth for [facility]. Auth pending. TCC will follow for auth. Problem: Pain - Adult Goal: Verbalizes/displays adequate comfort level or baseline comfort level Outcome: Progressing Flowsheets (Taken 09/26/2024 0455) Verbalizes/displays adequate comfort level or baseline comfort level: Encourage patient to monitor pain and request assistance Assess pain using appropriate pain scale Problem: Safety - Adult Goal: Free from fall injury Outcome: Progressing Problem: Knowledge Deficit Goal: Patient/family/caregiver demonstrates understanding of disease process, treatment plan, medications, and discharge instructions Outcome: Progressing Flowsheets (Taken 09/26/2024 0455) Patient/family/caregiver demonstrates understanding of disease process, treatment plan, medications, and discharge instructions: Provide teaching at level of understanding Problem: Potential for Compromised Skin Integrity Goal: Skin Integrity is Maintained or Improved Outcome: Progressing Flowsheets (Taken 09/26/2024 0455) Skin integrity is maintained or improved: Assess and monitor skin integrity Keep skin clean and dry Identify patients at risk for skin breakdown on admission and per policy Avoid shearing Attending wanting pt to return SNF LOC if possible, PT recommending SNF. [facility] will take pt back SNF LOC. Pt is agreeable to this. Per attending, okay to star auth. No PASR needed as pt is a return to same facility. TCC tasked PT and OT to see for updated notes. TCC will follow for notes to start auth. Problem: Pain - Adult Goal: Verbalizes/displays adequate comfort level or baseline comfort level Outcome: Progressing Problem: Safety - Adult Goal: Free from fall injury Outcome: Progressing Problem: Knowledge Deficit Goal: Patient/family/caregiver demonstrates understanding of disease process, treatment plan, medications, and discharge instructions Outcome: Progressing Problem: Potential for Compromised Skin Integrity Goal: Skin Integrity is Maintained or Improved Outcome: Progressing Goal: Nutritional status is improving Outcome: Progressing Problem: Urinary Incontinence Goal: Perineal skin integrity is maintained or improved Outcome: Progressing Referral placed to [facility] per TCC request. Await review and response regarding ability to accept. TCC notified. TCC completed chart review. 1 blood culture positive and 1 in process, will follow. PO azithromycin and IV rocephin. 3 L of O2-baseline from facility. Wound care consulted. Geriatrics consulted. PT and OT evals pending. Stool studies ordered, GI and c-diff rule out now. Pt is from [facility]. TCC spoke to pt at bedside, she is agreeable to return. TCC spoke to son Giana via phone call to update of DC plan. TCC tasked HOT SAW OPERATOR to make a LTC return referral. TCC will follow for facility response. Problem: Pain - Adult Goal: Verbalizes/displays adequate comfort level or baseline comfort level Outcome: Progressing Problem: Safety - Adult Goal: Free from fall injury Outcome: Progressing Problem: Knowledge Deficit Goal: Patient/family/caregiver demonstrates understanding of disease process, treatment plan, medications, and discharge instructions Outcome: Progressing documented in this encounter [facility] 09-27-2024 Note Formatting of this n ote might be different from the original. Confirmed pickup time of 3 pm by transport ChaoWIFI at phone number . Location of facility drop off is [facility]. Facility notified via KAYE Price notified on secure chat. [facility] 09-27-2024 Note Formatting of this n ote might be different from the original. Confirmed pickup time of 3 pm by transport ChaoWIFI at phone number . Location of facility drop off is [facility]. Facility notified via KAYE Price notified on secure chat. [facility] [employer] 09-27-2024 Note Formatting of this n ote might be different from the original. MAR & Discharge med list transmitted to [facility] via [facility] per TCC request. [facility] [employer] 09-27-2024 Note Formatting of this n ote might be different from the original. MAR & Discharge med list transmitted to [facility] via [facility] per TCC request. [facility] [employer] 09-27-2024 Note Formatting of this n ote might be different from the original. Transport requested in [facility]. Awaiting time confirmation. [facility] [employer] 09-27-2024 Note Formatting of this n ote might be different from the original. Transport requested in [facility]. Awaiting time confirmation. [facility] [employer] 09-27-2024 Note Hospitalist Discharg e Summary Andre Blanca : 1950 Admit date: 09/23/2024 Discharge date: 09/27/2024 Admitting Physician: Lashon Sullivan MD Primary Care Physician: Ria Longoria MD Visit Status: Inpatient Code Status: Full Code Acute, acute on chronic, unstable/uncontrolled chronic problems/diagnoses: Pneumonia Mechanical fall Polypharmacy Hypokalemia-replaced Diarrhea Blood 1/2 with CoNS (likely contaminate) Stable chronic problems affecting care, new non-acute diagnoses: H/o hypothyrodism H/o dvt H/o copd- not in exac HLD Bipolar disorder Seizure disorder Procedures: labs Hospital Course: Presented after a fall. Pt had a witnessed mechanical fall at snf, has a bruise on forehead. Pt reports she has been on oxygen for the past few days with mild cough and sputum production. In ER cxr concerning for pna. Started on IV abx and admitted for further evaluation. Placed on IV abx and clinically improved. Changed to PO abx to finish course at facility. Given patient seizure disorder, would not give patient Ultram. Ultram has been removed from patient med rec. Also, recommend outpatient psych follow up for treatment of bipolar 1 to avoid acute aissatou as seroquel and venlafaxine were not continued this hospitalization. See discharge diagnoses list above and medication adjustments below in med rec.The patient is discharged in improved and stable condition. Consults: IP CONSULT TO GERIATRICS IP WOUND CARE NURSE CONSULT TO EVAL Discharge Instructions: Diet: Dietary Orders (From admission, onward) Start Ordered 09/23/24 1457 Adult diet Regular Diet effective now Question: Diet type Answer: Regular 09/23/24 1456 Activity: as tolerated Recommended Outpatient Tests: CBC and BMP in 3 days Disposition: Patient discharged in stable condition to SNF . Greater than 31 minutes spent discharging the patient and coming up with patient discharge plan. Vitals: BP 126/83 Pulse 86 Temp 36.3 ?C (97.4 ?F) (Temporal) Resp 18 Ht 5' 6.5" (1.689 m) Wt 182 lb 1.6 oz (82.6 kg) SpO2 95% BMI 28.95 kg/m? Pulse Ox: SpO2 Av.2 % Min: 95 % Max: 96 % Supplemental O2: O2 Flow Rate (L/min): 3 L/min Physical Exam Cardiovascular: Rate and Rhythm: Normal rate and regular rhythm. Pulses: Normal pulses. Heart sounds: Normal heart sounds. Pulmonary: Effort: Pulmonary effort is normal. Breath sounds: Normal breath sounds. Abdominal: General: Bowel sounds are normal. Palpations: Abdomen is soft. LABS: Recent Labs 09/24/24 1352 09/25/24 0049 09/26/24 0502 NA 138 138 141 K 3.3* 3.5 3.5 CL 102 103 103 CO2 25 27 29 BUN 11 9 6* CREATININE 0.76 0.65 0.68 GLUCOSE 127* 99 116* CALCIUM 8.8 8.9 8.8 Recent Labs 09/24/24 1352 09/25/24 0049 09/26/24 0502 WBC 11.8* 12.0* 10.5 RBC 3.61* 3.64* 3.59* HGB 11.0* 11.0* 11.1* HCT 33.3* 34.6* 33.0* MCV 92.2 95.1 91.9 MCH 30.5 30.2 30.9 MCHC 33.0 31.8 33.6 RDW 12.9 12.8 13.2 PLT 220 246 294 MPV 10.3 10.3 10.1 Discharge Medications: Medication List START taking these medications amoxicillin-clavulanate 875-125 MG tablet Commonly known as: Augmentin Take 1 tablet by mouth every 12 hours for 2 days. loperamide 2 MG capsule Commonly known as: Imodium Take 1 capsule (2 mg) by mouth 4 times daily as needed for diarrhea for up to 10 days. CONTINUE taking these medications busPIRone 10 MG tablet Commonly known as: Buspar carBAMazepine 200 MG tablet Commonly known as: TEGretol cetirizine 10 MG tablet Commonly known as: ZyrTEC cholecalciferol 1.25 MG (77461 UT) tablet Commonly known as: Vitamin D3 clopidogrel 75 MG tablet Commonly known as: Plavix fludrocortisone 0.1 MG tablet Commonly known as: Florinef folic acid 1 MG tablet Commonly known as: Folvite guaiFENesin 600 MG 12 hr tablet Commonly known as: Mucinex levothyroxine 88 MCG tablet Commonly known as: Synthroid, Levoxyl Melatonin 10 MG capsule pantoprazole 20 MG EC tablet Commonly known as: ProtoNix pravastatin 40 MG tablet Commonly known as: Pravachol pregabalin 150 MG capsule Commonly known as: Lyrica risperiDONE 0.5 MG tablet Commonly known as: RisperDAL STOP taking these medications biotin 10 MG tablet hydrOXYzine pamoate 25 MG capsule Commonly known as: Vistaril meclizine 25 MG tablet Commonly known as: Antivert midodrine 5 MG tablet Commonly known as: Proamatine potassium chloride ER 10 MEQ ER capsule Commonly known as: Micro-K QUEtiapine 25 MG tablet Commonly known as: SEROquel therapeutic multivitamin-minerals tablet tiZANidine 2 MG capsule Commonly known as: Zanaflex traMADol 50 MG tablet Commonly known as: Ultram traZODone 150 MG tablet Commonly known as: Desyrel venlafaxine 75 MG tablet Commonly known as: Effexor Where to Get Your Medications Information about where to get these medications is not yet available Ask your nurse o (more content not included)... [facility] 09-27-2024 Hospital course Narrative Hospitalist Discharge Summary Andre Blanca : 1950 Admit date: 09/23/2024 Discharge date: 09/27/2024 Admitting Physician: Lashon Sullivan MD Primary Care Physician: Ria Longoria MD Visit Status: Inpatient Code Status: Full Code Acute, acute on chronic, unstable/uncontrolled chronic problems/diagnoses: Pneumonia Mechanical fall Polypharmacy Hypokalemia-replaced Diarrhea Blood 1/2 with CoNS (likely contaminate) Stable chronic problems affecting care, new non-acute diagnoses: H/o hypothyrodism H/o dvt H/o copd- not in [facility] HLD Bipolar disorder Seizure disorder Procedures: labs Hospital Course: Presented after a fall. Pt had a witnessed mechanical fall at snf, has a bruise on forehead. Pt reports she has been on oxygen for the past few days with mild cough and sputum production. In ER cxr concerning for pna. Started on IV abx and admitted for further evaluation. Placed on IV abx and clinically improved. Changed to PO abx to finish course at facility. Given patient seizure disorder, would not give patient Ultram. Ultram has been removed from patient med rec. Also, recommend outpatient psych follow up for treatment of bipolar 1 to avoid acute aissatou as seroquel and venlafaxine were not continued this hospitalization. See discharge diagnoses list above and medication adjustments below in med rec.The patient is discharged in improved and stable condition. Consults: IP CONSULT TO GERIATRICS IP WOUND CARE NURSE CONSULT TO EVAL Discharge Instructions: Diet: Dietary Orders (From admission, onward) Start Ordered 09/23/24 1457 Adult diet Regular Diet effective now Question: Diet type Answer: Regular 09/23/24 7601 Activity: as tolerated Recommended Outpatient Tests: CBC and BMP in 3 days Disposition: Patient discharged in stable condition to SNF . Greater than 31 minutes spent discharging the patient and coming up with patient discharge plan. Vitals: BP 126/83 Pulse 86 Temp 36.3 C (97.4 F) (Temporal) Resp 18 Ht 5' 6.5" (1.689 m) Wt 182 lb 1.6 oz (82.6 kg) SpO2 95% BMI 28.95 kg/m Pulse Ox: SpO2 Av.2 % Min: 95 % Max: 96 % Supplemental O2: O2 Flow Rate (L/min): 3 L/min Physical Exam Cardiovascular: Rate and Rhythm: Normal rate and regular rhythm. Pulses: Normal pulses. Heart sounds: Normal heart sounds. Pulmonary: Effort: Pulmonary effort is normal. Breath sounds: Normal breath sounds. Abdominal: General: Bowel sounds are normal. Palpations: Abdomen is soft. LABS: Recent Labs 09/24/24 1352 09/25/24 0049 09/26/24 0502 NA 138 138 141 K 3.3* 3.5 3.5 CL 102 103 103 CO2 25 27 29 BUN 11 9 6* CREATININE 0.76 0.65 0.68 GLUCOSE 127* 99 116* CALCIUM 8.8 8.9 8.8 Recent Labs 09/24/24 1352 09/25/24 0049 09/26/24 0502 WBC 11.8* 12.0* 10.5 RBC 3.61* 3.64* 3.59* HGB 11.0* 11.0* 11.1* HCT 33.3* 34.6* 33.0* MCV 92.2 95.1 91.9 MCH 30.5 30.2 30.9 MCHC 33.0 31.8 33.6 RDW 12.9 12.8 13.2 PLT 220 246 294 MPV 10.3 10.3 10.1 Discharge Medications: Medication List START taking these medications amoxicillin-clavulanate 875-125 MG tablet Commonly known as: Augmentin Take 1 tablet by mouth every 12 hours for 2 days. loperamide 2 MG capsule Commonly known as: Imodium Take 1 capsule (2 mg) by mouth 4 times daily as needed for diarrhea for up to 10 days. CONTINUE taking these medications busPIRone 10 MG tablet Commonly known as: Buspar carBAMazepine 200 MG tablet Commonly known as: TEGretol cetirizine 10 MG tablet Commonly known as: ZyrTEC cholecalciferol 1.25 MG (85408 UT) tablet Commonly known as: Vitamin D3 clopidogrel 75 MG tablet Commonly known as: Plavix fludrocortisone 0.1 MG tablet Commonly known as: Florinef folic acid 1 MG tablet Commonly known as: Folvite guaiFENesin 600 MG 12 hr tablet Commonly known as: Mucinex levothyroxine 88 MCG tablet Commonly known as: Synthroid, Levoxyl Melatonin 10 MG capsule pantoprazole 20 MG EC tablet Commonly known as: ProtoNix pravastatin 40 MG tablet Commonly known as: Pravachol pregabalin 150 MG capsule Commonly known as: Lyrica risperiDONE 0.5 MG tablet Commonly known as: RisperDAL STOP taking these medications biotin 10 MG tablet hydrOXYzine pamoate 25 MG capsule Commonly known as: Vistaril meclizine 25 MG tablet Commonly known as: Antivert midodrine 5 MG tablet Commonly known as: Proamatine potassium chloride ER 10 MEQ ER capsule Commonly known as: Micro-K QUEtiapine 25 MG tablet Commonly known as: SEROquel therapeutic multivitamin-minerals tablet tiZANidine 2 MG capsule Commonly known as: Zanaflex traMADol 50 MG tablet Commonly known as: Ultram traZODone 150 MG tablet Commonly known as: Desyrel venlafaxine 75 MG tablet Commonly known as: Effexor Where to Get Your Medications Information about where to get these medications is not yet available Ask your nurse or doctor about these medications amoxicillin-clavulanate 875-125 MG tablet loperamide 2 MG capsule Recommended Follow-up: Ria Longoria MD [address] [facility] [id number] Follow up in 1 week(s) Complexity of Follow up: [] Moderate Complexity: follow up within 7-14 calendar days (21383) [x] Severe Complexity: follow up within 7 calendar days (31816) Follow up Testing, Pending results or Referrals at Transitional Care Visit: [x] yes [] no Instructions to MA: Please call patient on day after discharge (must document patient contacted within 2 business days of discharge). Follow up questions for MA: 1. Did you get medications filled and taking them as instructed from discharge? 2. Are you following your discharge instructions from your hospital stay? 3. Please confirm patient is scheduled for a follow up appointment within the above time frame. Signed: Dennis Davies DO Division of Hospital Medicine Inpatient Medical Services[place] [place]24, 10:07 AM documented in this encounter [facility] 09-27-2024 Note Hospitalist Progress Note Subjective: Admit Date: 09/23/2024 PCP: Ria Longoria MD Room#: E5-515/E5-515 A Chief Complaint Patient presents with Fall Fall and hit head on floor. c/o R hip pain. Baseline Aox3, per EMS Aox1-2. Takes plavix and has been feeling ill lately. Brief Hospital course: Presented after a fall. Pt had a witnessed mechanical fall at [facility], has a bruise on forehead. Pt reports she has been on oxygen for the past few days with mild cough and sputum production. In ER cxr concerning for pna. Started on IV abx and admitted for further evaluation. Interval History: 09/27/2024-No acute issues or complaints. My does complain of some mild nausea this am. Case and plan discussed with patient and case management. All questions answered. Adult diet Regular 24HR INTAKE/OUTPUT: Intake/Output Summary (Last 24 hours) at 09/27/2024 1006 Last data filed at 09/26/2024 1400 Gross per 24 hour Intake 230 ml Output -- Net 230 ml LABS: CBC: Recent Labs 09/24/24 1352 09/25/24 0049 09/26/24 0502 WBC 11.8* 12.0* 10.5 RBC 3.61* 3.64* 3.59* HGB 11.0* 11.0* 11.1* HCT 33.3* 34.6* 33.0* MCV 92.2 95.1 91.9 RDW 12.9 12.8 13.2 PLT 220 246 294 BMP: Recent Labs 09/24/24 1352 09/25/24 0049 09/26/24 0502 NA 138 138 141 K 3.3* 3.5 3.5 CL 102 103 103 CO2 25 27 29 BUN 11 9 6* CREATININE 0.76 0.65 0.68 GLUCOSE 127* 99 116* CALCIUM 8.8 8.9 8.8 ANIONGAP 11 8 9 LIVER PROFILE: Recent Labs 09/24/24 1352 AST 31 ALT 10 BILITOT 0.5 ALKPHOS 104 PROT 6.8 PT/INR: No results for input(s): "PROTIME", "INR" in the last 72 hours. CARDIAC ENZYMES: No results for input(s): "TROPONINI" in the last 72 hours. Procalcitonin: No results found for: "PROCAL" COVID-19 PCR: No results for input(s): "COVID19" in the last 72 hours. Objective: Vitals: BP 126/83 Pulse 86 Temp 36.3 ?C (97.4 ?F) (Temporal) Resp 18 Ht 5' 6.5" (1.689 m) Wt 182 lb 1.6 oz (82.6 kg) SpO2 95% BMI 28.95 kg/m? Pulse Ox: SpO2 Av.2 % Min: 95 % Max: 96 % Supplemental O2: O2 Flow Rate (L/min): 3 L/min Physical Exam Cardiovascular: Rate and Rhythm: Normal rate and regular rhythm. Pulses: Normal pulses. Heart sounds: Normal heart sounds. Pulmonary: Effort: Pulmonary effort is normal. Breath sounds: Normal breath sounds. Abdominal: General: Bowel sounds are normal. Palpations: Abdomen is soft. Medications: Scheduled PRN amoxicillin-clavulanate, 875 mg, Oral, 2 times per day busPIRone, 10 mg, Oral, TID carBAMazepine, 200 mg, Oral, TID clopidogrel, 75 mg, Oral, Daily enoxaparin, 40 mg, SubCUTAneous, q24h fludrocortisone, 0.1 mg, Oral, Daily folic acid, 1 mg, Oral, Daily guaiFENesin, 600 mg, Oral, BID ipratropium-albuterol, 3 mL, Nebulization, TID levothyroxine, 75 mcg, Oral, qAM AC pantoprazole, 40 mg, Oral, BID pravastatin, 40 mg, Oral, Nightly pregabalin, 150 mg, Oral, BID risperiDONE, 0.5 mg, Oral, BID senna-docusate sodium, 2 tablet, Oral, Daily PRN medications: acetaminophen OR acetaminophen, loperamide, ondansetron ODT OR ondansetron, polyethylene glycol (PEG) 3350, stomahesive in petrolatum Continuous Assessment Data: (CAT1) Reviewed 3 or more notes from different specialty or health system (each=1). (LOW: 2x CAT1 or independent historian MOD: 3x CAT1 or 1x CAT3 EXTENSIVE: 3x CAT1 and 1x CAT3) Acute, acute on chronic, unstable/uncontrolled chronic problems/diagnoses: Pneumonia Mechanical fall Polypharmacy Hypokalemia Diarrhea Blood 1/2 with CoNS (likely contaminate) Stable chronic problems affecting care, new non-acute diagnoses: H/o hypothyrodism H/o dvt H/o copd- not in [facility] HLD Bipolar disorder Seizure disorder Plan As a result of the above findings & factors, the following mgmt was pursued: - change to PO Augmentin today - geriatrics consulted and following, medication recs noted and appreciated - prn Imodium - am labs, replace lytes prn - PT/OT/CM/SW - delirium precautions: increase activity - DVT prophylaxis: enoxaparin and encourage ambulation Complexity: Acute illness or injury posing a threat to life or body function (HIGH). Risk: Prescription drug/IVF/colloid was initiated, discontinued, adjusted; or reviewed with decision to maintain current orders (MOD). Advance Directive: Full Code Anticipated Discharge - Date - 09/27/24 - Location - Skilled Facility - Pending the following - transportation Total time spent (which include face to face and non face to face encounters) : 27 minutes Extended Emergency Contact Information Primary Emergency Contact: Giana Blanca Mobile Relation: Son Income Tax Preparer needed? No Dennis Davies DO Division of Hospital Medicine Inpatient Medical Services/[facility] 09-27-2024 Note Hospitalist Progress Note Subjective: Admit Date: 09/23/2024 PCP: Ria Longoria MD Room#: [id number] A Chief Complaint Patient presents with Fall Fall and hit head on floor. c/o R hip pain. Baseline Aox3, per EMS Aox1-2. Takes plavix and has been feeling ill lately. Brief Hospital course: Presented after a fall. Pt had a witnessed mechanical fall at snf, has a bruise on forehead. Pt reports she has been on oxygen for the past few days with mild cough and sputum production. In ER cxr concerning for pna. Started on IV abx and admitted for further evaluation. Interval History: 09/27/2024-No acute issues or complaints. My does complain of some mild nausea this am. Case and plan discussed with patient and case management. All questions answered. Adult diet Regular 24HR INTAKE/OUTPUT: Intake/Output Summary (Last 24 hours) at 09/27/2024 1006 Last data filed at 09/26/2024 1400 Gross per 24 hour Intake 230 ml Output -- Net 230 ml LABS: CBC: Recent Labs 09/24/24 1352 09/25/24 0049 09/26/24 0502 WBC 11.8* 12.0* 10.5 RBC 3.61* 3.64* 3.59* HGB 11.0* 11.0* 11.1* HCT 33.3* 34.6* 33.0* MCV 92.2 95.1 91.9 RDW 12.9 12.8 13.2 PLT 220 246 294 BMP: Recent Labs 09/24/24 1352 09/25/24 0049 09/26/24 0502 NA 138 138 141 K 3.3* 3.5 3.5 CL 102 103 103 CO2 25 27 29 BUN 11 9 6* CREATININE 0.76 0.65 0.68 GLUCOSE 127* 99 116* CALCIUM 8.8 8.9 8.8 ANIONGAP 11 8 9 LIVER PROFILE: Recent Labs 09/24/24 1352 AST 31 ALT 10 BILITOT 0.5 ALKPHOS 104 PROT 6.8 PT/INR: No results for input(s): "PROTIME", "INR" in the last 72 hours. CARDIAC ENZYMES: No results for input(s): "TROPONINI" in the last 72 hours. Procalcitonin: No results found for: "PROCAL" COVID-19 PCR: No results for input(s): "COVID19" in the last 72 hours. Objective: Vitals: BP 126/83 Pulse 86 Temp 36.3 ?C (97.4 ?F) (Temporal) Resp 18 Ht 5' 6.5" (1.689 m) Wt 182 lb 1.6 oz (82.6 kg) SpO2 95% BMI 28.95 kg/m? Pulse Ox: SpO2 Av.2 % Min: 95 % Max: 96 % Supplemental O2: O2 Flow Rate (L/min): 3 L/min Physical Exam Cardiovascular: Rate and Rhythm: Normal rate and regular rhythm. Pulses: Normal pulses. Heart sounds: Normal heart sounds. Pulmonary: Effort: Pulmonary effort is normal. Breath sounds: Normal breath sounds. Abdominal: General: Bowel sounds are normal. Palpations: Abdomen is soft. Medications: Scheduled PRN amoxicillin-clavulanate, 875 mg, Oral, 2 times per day busPIRone, 10 mg, Oral, TID carBAMazepine, 200 mg, Oral, TID clopidogrel, 75 mg, Oral, Daily enoxaparin, 40 mg, SubCUTAneous, q24h fludrocortisone, 0.1 mg, Oral, Daily folic acid, 1 mg, Oral, Daily guaiFENesin, 600 mg, Oral, BID ipratropium-albuterol, 3 mL, Nebulization, TID levothyroxine, 75 mcg, Oral, qAM AC pantoprazole, 40 mg, Oral, BID pravastatin, 40 mg, Oral, Nightly pregabalin, 150 mg, Oral, BID risperiDONE, 0.5 mg, Oral, BID senna-docusate sodium, 2 tablet, Oral, Daily PRN medications: acetaminophen OR acetaminophen, loperamide, ondansetron ODT OR ondansetron, polyethylene glycol (PEG) 3350, stomahesive in petrolatum Continuous Assessment Data: (CAT1) Reviewed 3 or more notes from different specialty or health system (each=1). (LOW: 2x CAT1 or independent historian MOD: 3x CAT1 or 1x CAT3 EXTENSIVE: 3x CAT1 and 1x CAT3) Acute, acute on chronic, unstable/uncontrolled chronic problems/diagnoses: Pneumonia Mechanical fall Polypharmacy Hypokalemia Diarrhea Blood 1/2 with CoNS (likely contaminate) Stable chronic problems affecting care, new non-acute diagnoses: H/o hypothyrodism H/o dvt H/o copd- not in exac HLD Bipolar disorder Seizure disorder Plan As a result of the above findings & factors, the following mgmt was pursued: - change to PO Augmentin today - geriatrics consulted and following, medication recs noted and appreciated - prn Imodium - am labs, replace lytes prn - PT/OT/CM/SW - delirium precautions: increase activity - DVT prophylaxis: enoxaparin and encourage ambulation Complexity: Acute illness or injury posing a threat to life or body function (HIGH). Risk: Prescription drug/IVF/colloid was initiated, discontinued, adjusted; or reviewed with decision to maintain current orders (MOD). Advance Directive: Full Code Anticipated Discharge - Date - 09/27/24 - Location - Skilled Facility - Pending the following - transportation Total time spent (which include face to face and non face to face encounters) : 27 minutes Extended Emergency Contact Information Primary Emergency Contact: Giana Blanca Mobile Relation: Son Income Tax Preparer needed? No Dennis Davies DO Division of [facility] Medicine Inpatient Medical Services/[facility] 09-27-2024 History of Presen t illness Narrative Hospitalist Progress Note Subjective: Admit Date: 09/23/2024 PCP: Ria Longoria MD Room#: [id number] A Chief Complaint Patient presents with Fall Fall and hit head on floor. c/o R hip pain. Baseline Aox3, per EMS Aox1-2. Takes plavix and has been feeling ill lately. Brief Hospital course: Presented after a fall. Pt had a witnessed mechanical fall at snf, has a bruise on forehead. Pt reports she has been on oxygen for the past few days with mild cough and sputum production. In ER cxr concerning for pna. Started on IV abx and admitted for further evaluation. Interval History: 09/27/2024-No acute issues or complaints. My does complain of some mild nausea this am. Case and plan discussed with patient and case management. All questions answered. Adult diet Regular 24HR INTAKE/OUTPUT: Intake/Output Summary (Last 24 hours) at 09/27/2024 1006 Last data filed at 09/26/2024 1400 Gross per 24 hour Intake 230 ml Output -- Net 230 ml LABS: CBC: Recent Labs 09/24/24 1352 09/25/24 0049 09/26/24 0502 WBC 11.8* 12.0* 10.5 RBC 3.61* 3.64* 3.59* HGB 11.0* 11.0* 11.1* HCT 33.3* 34.6* 33.0* MCV 92.2 95.1 91.9 RDW 12.9 12.8 13.2 PLT 220 246 294 BMP: Recent Labs 09/24/24 1352 09/25/24 0049 09/26/24 0502 NA 138 138 141 K 3.3* 3.5 3.5 CL 102 103 103 CO2 25 27 29 BUN 11 9 6* CREATININE 0.76 0.65 0.68 GLUCOSE 127* 99 116* CALCIUM 8.8 8.9 8.8 ANIONGAP 11 8 9 LIVER PROFILE: Recent Labs 09/24/24 1352 AST 31 ALT 10 BILITOT 0.5 ALKPHOS 104 PROT 6.8 PT/INR: No results for input(s): "PROTIME", "INR" in the last 72 hours. CARDIAC ENZYMES: No results for input(s): "TROPONINI" in the last 72 hours. Procalcitonin: No results found for: "PROCAL" COVID-19 PCR: No results for input(s): "COVID19" in the last 72 hours. Objective: Vitals: BP 126/83 Pulse 86 Temp 36.3 C (97.4 F) (Temporal) Resp 18 Ht 5' 6.5" (1.689 m) Wt 182 lb 1.6 oz (82.6 kg) SpO2 95% BMI 28.95 kg/m Pulse Ox: SpO2 Av.2 % Min: 95 % Max: 96 % Supplemental O2: O2 Flow Rate (L/min): 3 L/min Physical Exam Cardiovascular: Rate and Rhythm: Normal rate and regular rhythm. Pulses: Normal pulses. Heart sounds: Normal heart sounds. Pulmonary: Effort: Pulmonary effort is normal. Breath sounds: Normal breath sounds. Abdominal: General: Bowel sounds are normal. Palpations: Abdomen is soft. Medications: Scheduled PRN amoxicillin-clavulanate, 875 mg, Oral, 2 times per day busPIRone, 10 mg, Oral, TID carBAMazepine, 200 mg, Oral, TID clopidogrel, 75 mg, Oral, Daily enoxaparin, 40 mg, SubCUTAneous, q24h fludrocortisone, 0.1 mg, Oral, Daily folic acid, 1 mg, Oral, Daily guaiFENesin, 600 mg, Oral, BID ipratropium-albuterol, 3 mL, Nebulization, TID levothyroxine, 75 mcg, Oral, qAM AC pantoprazole, 40 mg, Oral, BID pravastatin, 40 mg, Oral, Nightly pregabalin, 150 mg, Oral, BID risperiDONE, 0.5 mg, Oral, BID senna-docusate sodium, 2 tablet, Oral, Daily PRN medications: acetaminophen OR acetaminophen, loperamide, ondansetron ODT OR ondansetron, polyethylene glycol (PEG) 3350, stomahesive in petrolatum Continuous Assessment Data: (CAT1) Reviewed 3 or more notes from different specialty or health system (each=1). (LOW: 2x CAT1 or independent historian MOD: 3x CAT1 or 1x CAT3 EXTENSIVE: 3x CAT1 and 1x CAT3) Acute, acute on chronic, unstable/uncontrolled chronic problems/diagnoses: Pneumonia Mechanical fall Polypharmacy Hypokalemia Diarrhea Blood 1/2 with CoNS (likely contaminate) Stable chronic problems affecting care, new non-acute diagnoses: H/o hypothyrodism H/o dvt H/o copd- not in exac HLD Bipolar disorder Seizure disorder Plan As a result of the above findings & factors, the following mgmt was pursued: - change to PO Augmentin today - geriatrics consulted and following, medication recs noted and appreciated - prn Imodium - am labs, replace lytes prn - PT/OT/CM/SW - delirium precautions: increase activity - DVT prophylaxis: enoxaparin and encourage ambulation Complexity: Acute illness or injury posing a threat to life or body function (HIGH). Risk: Prescription drug/IVF/colloid was initiated, discontinued, adjusted; or reviewed with decision to maintain current orders (MOD). Advance Directive: Full Code Anticipated Discharge - Date - 09/27/24 - Location - Skilled Facility - Pending the following - transportation Total time spent (which include face to face and non face to face encounters) : 27 minutes Extended Emergency Contact Information Primary Emergency Contact: Giana Blanca Mobile Relation: Son Income Tax Preparer needed? No Dennis Davies DO Division of Hospital Medicine [place] [place] [facility] Geriatric Medicine Inpatient Consult Service Admission Date:09/23/2024 Assessment Principal Problem: Pneumonia due to organism Active Problems: Pneumonia due to infectious agent Plan Fall - mechanical fall - risk factors include: acute illness, significant polypharmacy (see recs below) - Vitamin D level within normal limits at 40 - Carbamazepine level within normal limits - check orthostatic vital signs - PT/OT as able - PT currently recommending SNF- per review of chart, plan to return to [facility] Bipolar disorder - per facility is followed by in house psych team at [facility] - see medication recommendations as below, significant polypharmacy- on several psych medications, would benefit from psychiatry input for ability to limit her pill burden Polypharmacy - Per nurse Carli at [facility] on 09/24- patient is reported to be taking the following medications: - Buspar 10mg TID- restarted - Tegretol 200mg TID- ordered here, continue - Levothyroxine 88mcg daily- change dosage to reflect home dose if appropriate - Tramadol 100mg q8hrs PRN Pain- per nursing staff consistently takes 100mg nightly at facility- can continue off for now, monitor for pain- agree with not starting at discharge as this may increase risk for seizure - Trazodone 150mg nightly- assess for need for restarting while here - Seroquel 25mg BID- recommend restarting while inpatient in setting of Bipolar disorder as above - Risperdal 0.5mg BID- recommend restarting while inpatient in setting of Bipolar disorder as above- would benefit from psychiatry input for appropriateness of continuation of both Seroquel and Risperdal mcfp - Tizanidine 2mg BID- unclear indication for this, would recommend attempts at gradual dose reduction vs changing to PRN - Pregabalin 150mg BID- restarted - Vistaril 25mg BID- OK to continue to hold at this time, 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 alternative mcfp- due to anticholinergic effects may further contribute to her fall risk - Omeprazole 40mg BID- currently on pantoprazole here - Pravastatin, Plavix 75mg daily, Folic Acid 1mg daily- have all been restarted here - Venlafaxine 37,5mg daily- assess for appropriateness of restarting, would benefit from psychiatry guidance on need for continuation at current dosing - Melatonin 10mg nightly- consider adding melatonin PRN for sleep At risk for delirium - increased risk for delirium in setting of acute illness (pna), polypharmacy, hospital environment - continue to treat underlying conditions- currently receiving IV Ceftriaxone - C.Diff and GI PCR negative - recommend delirium protocol - continue to assess and treat for pain - monitor for urinary retention/constipation - last BM today 09/26 -Avoid sedating/anticholinergic medications, encourage sleep hygiene, encourage family visits, optimize sensory input and access to assistive devices where indicated, encourage time up in chair as able and D/c [facility], restraints, IV lines, as able Follow-up: PRN, please page for questions Subjective: Chief Complaint: Fall Geriatrics consulted for Fall HPI- patient is known to me 74 y.o. year-old female that presented from facility for fall. Per review of H&P- patient had a witnessed mechanical fall. patient has reportedly been on oxygen for the past few days with cough and sputum production. In the ED, CXR was concerning for PNA. Started on Ceftriaxone. Creat 1.14 on admission, sodium 133. Lactic acid normal, CBC with slight leukocytosis at 11.6 Interval history: remains on 5E GI PCR and C. Diff negative WBC improved today at 10.5, Magnesium improved today 1.6, currently receiving IV Rocephin for pneumonia Patient reports she is doing ok today, appetite is good, still having some diarrhea, denies pain at this time, still coughing, she knows that she is currently at [facility] Therapy recommendations Seen by PT/OT today- both recommending SNF Review of Systems Constitutional: Positive for activity change and fatigue. Respiratory: Positive for cough. Gastrointestinal: Positive for diarrhea. Negative for constipation and nausea. Musculoskeletal: Negative for arthralgias and gait problem. Psychiatric/Behavioral: Negative for confusion. The patient is not nervous/anxious. Objective: BP 137/80 (BP Location: Right arm, Patient Position: Sitting) Pulse 86 Temp 36.3 C (97.4 F) (Temporal) Resp 16 Ht 5' 6.5" (1.689 m) Wt 182 lb 1.6 oz (82.6 kg) SpO2 95% BMI 28.95 kg/m No intake or output data in the 24 hours ending 09/26/24 1456 Wt Readings from Last 4 Encounters: 09/25/24 182 lb 1.6 oz (82.6 kg) Current Facility-Administered Medications: acetaminophen (Tylenol) tablet 650 mg, 650 mg, Oral, q6h PRN, 650 mg at 09/26/24 1337 OR acetaminophen (Tylenol) suppository 650 mg, 650 mg, Rectal, q6h PRN, Lashon Sullivan MD busPIRone (Buspar) tablet 10 mg, 10 mg, Oral, TID, Shweta Carson, MANAGER PROJECT - GENERAL LABOR FORKLIFT OPERATOR, 10 mg at 09/26/24 1337 carBAMazepine (TEGretol) tablet 200 mg, 200 mg, Oral, TID, Lashon Sullivan MD, 200 mg at 09/26/24 1316 cefTRIAXone (Rocephin) 1,000 mg in sodium chloride 0.9 % 50 mL IVPB Mini-Bag Plus, 1,000 mg, IntraVENous, q24h, Lashon Sullivan MD, Stopped at 09/26/24 1259 clopidogrel (Plavix) tablet 75 mg, 75 mg, Oral, Daily, Lashon Sullivan MD, 75 mg at 09/26/24 0837 enoxaparin (Lovenox) syringe 40 mg, 40 mg, SubCUTAneous, q24h, Lashon Sullivan MD, 40 mg at 09/25/24 1539 fludrocortisone (Florinef) tablet 0.1 mg, 0.1 mg, Oral, Daily, Lashon Sullivan MD, 0.1 mg at 09/26/24 0839 folic acid (Folvite) tablet 1 mg, 1 mg, Oral, Daily, Lashon Sullivan MD, 1 mg at 09/26/24 0837 guaiFENesin (Mucinex) 12 hr tablet 600 mg, 600 mg, Oral, BID, Lashon Sullivan MD, 600 mg at 09/26/24 0837 ipratropium-albuterol (Duo-Neb) 0.5-2.5 mg/3 mL nebulizer solution 3 mL, 3 mL, Nebulization, TID, Lashon Sullivan MD, 3 mL at 09/26/24 1320 levothyroxine (Synthroid, Levoxyl) tablet 75 mcg, 75 mcg, Oral, qAM AC, Lashon Sullivan MD, 75 mcg at 09/26/24 0502 loperamide (Imodium) capsule 2 mg, 2 mg, Oral, 4x daily PRN, Dennis Davies DO, 2 mg at 09/26/24 1337 ondansetron ODT (Zofran-ODT) disintegrating tablet 4 mg, 4 mg, Oral, q8h PRN, 4 mg at 09/24/24 1517 OR ondansetron (Zofran) injection 4 mg, 4 mg, IntraVENous, q6h PRN, Lashon Sullivan MD pantoprazole (ProtoNix) EC tablet 40 mg, 40 mg, Oral, BID, Lashon Sullivan MD, 40 mg at 09/26/24 0502 polyethylene glycol (PEG) 3350 (Miralax) packet 17 g, 17 g, Oral, Daily PRN, Lashon Sullivan MD pravastatin (Pravachol) tablet 40 mg, 40 mg, Oral, Nightly, Lashon Sullivan MD, 40 mg at 09/25/24 2124 pregabalin (Lyrica) capsule 150 mg, 150 mg, Oral, BID, FREDERICK Eisenberg CNP, 150 mg at 09/26/24 0837 risperiDONE (RisperDAL) tablet 0.5 mg, 0.5 mg, Oral, BID, FREDERICK Eisenberg CNP, 0.5 mg at 09/26/24 0839 senna-docusate sodium (Senokot-S) 8.6-50 MG tablet 2 tablet, 2 tablet, Oral, Daily, Lashon Sullivan MD, 2 tablet at 09/25/24 0858 stomahesive in petrolatum (ET Mix), , Topical, PRN, Dennis Davies DO, Given at 09/26/24 1231 Physical Exam Constitutional: General: She is not in acute distress. Comments: Sitting up in bed, alert and cooperative with exam HENT: Mouth/Throat: Mouth: Mucous membranes are moist. Pharynx: Oropharynx is clear. Eyes: General: Right eye: No discharge. Left eye: No discharge. Conjunctiva/sclera: Conjunctivae normal. Cardiovascular: Rate and Rhythm: Normal rate. Pulmonary: Effort: Pulmonary effort is normal. No respiratory distress. Comments: O2 in place via NC Musculoskeletal: Right lower leg: No edema. Left lower leg: No edema. Neurological: Mental Status: She is alert and oriented to person, place, and time. Comments: Alert and oriented to self, place and date, follows commands Psychiatric: Attention and Perception: Attention normal. Mood and Affect: Mood normal. Behavior: Behavior normal. Behavior is not agitated or aggressive. Behavior is cooperative. Labs and Imaging: Recent Results (from the past 24 hours) Magnesium Collection Time: 09/26/24 5:02 AM Result Value Ref Range MAGNESIUM 1.6 1.6 - 2.6 mg/dL CBC auto differential Collection Time: 09/26/24 5:02 AM Result Value Ref Range Auto WBC 10.5 3.6 - 10.7 10*3/uL RBC 3.59 (L) 3.80 - 5.20 10*6/uL Hemoglobin 11.1 (L) 11.7 - 16.0 g/dL Hematocrit 33.0 (L) 35.0 - 47.0 % MCV 91.9 77.0 - 99.0 fL MCH 30.9 26.0 - 34.0 pg MCHC 33.6 30.5 - 36.0 % RDW 13.2 11.5 - 15.0 % Platelets 294 140 - 440 10*3/uL MPV 10.1 9.0 - 12.7 fL nRBC 0.0 0.0 - 2.0 /100 WBCs Neutrophils Relative 69.4 38.0 - 82.0 % Lymphocytes Relative 13.8 (L) 15.0 - 45.0 % Monocytes Relative 11.0 5.0 - 13.0 % Eosinophils Relative 3.0 0.0 - 6.0 % Basophils Relative 1.1 0.0 - 2.0 % Immature Grans % 1.7 0.0 - 2.0 % Neutrophils Absolute 7.3 1.8 - 7.5 10*3/uL Lymphocytes Absolute 1.4 1.0 - 4.3 10*3/uL Monocytes Absolute 1.2 (H) 0.0 - 0.9 10*3/uL Eosinophils Absolute 0.3 0.0 - 0.5 10*3/uL Basophils Absolute 0.1 0.0 - 0.2 10*3/uL Immature Grans Absolute 0.2 (H) <0.1 10*3/uL Basic metabolic panel Collection Time: 09/26/24 5:02 AM Result Value Ref Range SODIUM 141 136 - 145 mmol/L POTASSIUM 3.5 3.5 - 5.1 mmol/L CHLORIDE 103 98 - 107 mmol/L CARBON DIOXIDE 29 23 - 31 mmol/L UREA NITROGEN 6 (L) 9 - 23 mg/dL CREATININE 0.68 0.57 - 1.11 mg/dL GLUCOSE 116 (H) 82 - 115 mg/dL CALCIUM 8.8 8.8 - 10.0 mg/dL ANION GAP 9 3 - 13 mmol/L eGFR >90.0 >60.0 mL/min/1.73m*2 Lab Results Component Value Date TSH 0.57 09/25/2024 No components found for: "B12" Lab Results Component Value Date VITD25 40 09/24/2024 Reviewed: active problem list, medication list, allergies, notes from last encounter, lab results Hospitalist Progress Note Subjective: Admit Date: 09/23/2024 PCP: Ria Longoria MD Room#: [id number] A Chief Complaint Patient presents with Fall Fall and hit head on floor. c/o R hip pain. Baseline Aox3, per EMS Aox1-2. Takes plavix and has been feeling ill lately. Brief Hospital course: Presented after a fall. Pt had a witnessed mechanical fall at [facility], has a bruise on forehead. Pt reports she has been on oxygen for the past few days with mild cough and sputum production. In ER cxr concerning for pna. Started on IV abx and admitted for further evaluation. Interval History: 09/26/2024-No acute issues or complaints. Case and plan discussed with patient and case management. All questions answered. Adult diet Regular 24HR INTAKE/OUTPUT: Intake/Output Summary (Last 24 hours) at 09/26/2024 1219 Last data filed at 09/25/2024 1259 Gross per 24 hour Intake 86.67 ml Output -- Net 86.67 ml LABS: CBC: Recent Labs 09/24/24 1352 09/25/24 0049 09/26/24 0502 WBC 11.8* 12.0* 10.5 RBC 3.61* 3.64* 3.59* HGB 11.0* 11.0* 11.1* HCT 33.3* 34.6* 33.0* MCV 92.2 95.1 91.9 RDW 12.9 12.8 13.2 PLT 220 246 294 BMP: Recent Labs 09/24/24 1352 09/25/24 0049 09/26/24 0502 NA 138 138 141 K 3.3* 3.5 3.5 CL 102 103 103 CO2 25 27 29 BUN 11 9 6* CREATININE 0.76 0.65 0.68 GLUCOSE 127* 99 116* CALCIUM 8.8 8.9 8.8 ANIONGAP 11 8 9 LIVER PROFILE: Recent Labs 09/24/24 1352 AST 31 ALT 10 BILITOT 0.5 ALKPHOS 104 PROT 6.8 PT/INR: No results for input(s): "PROTIME", "INR" in the last 72 hours. CARDIAC ENZYMES: No results for input(s): "TROPONINI" in the last 72 hours. Procalcitonin: No results found for: "PROCAL" COVID-19 PCR: No results for input(s): "COVID19" in the last 72 hours. Objective: Vitals: BP 137/80 (BP Location: Right arm, Patient Position: Sitting) Pulse 95 Temp 36.3 C (97.4 F) (Temporal) Resp 20 Ht 5' 6.5" (1.689 m) Wt 182 lb 1.6 oz (82.6 kg) SpO2 96% BMI 28.95 kg/m Pulse Ox: SpO2 Av.5 % Min: 93 % Max: 96 % Supplemental O2: O2 Flow Rate (L/min): 4 L/min Physical Exam Cardiovascular: Rate and Rhythm: Normal rate and regular rhythm. Pulses: Normal pulses. Heart sounds: Normal heart sounds. Pulmonary: Effort: Pulmonary effort is normal. Breath sounds: Normal breath sounds. Abdominal: General: Bowel sounds are normal. Palpations: Abdomen is soft. Medications: Scheduled PRN busPIRone, 10 mg, Oral, TID carBAMazepine, 200 mg, Oral, TID cefTRIAXone, 1,000 mg, IntraVENous, q24h clopidogrel, 75 mg, Oral, Daily enoxaparin, 40 mg, SubCUTAneous, q24h fludrocortisone, 0.1 mg, Oral, Daily folic acid, 1 mg, Oral, Daily guaiFENesin, 600 mg, Oral, BID ipratropium-albuterol, 3 mL, Nebulization, TID levothyroxine, 75 mcg, Oral, qAM AC pantoprazole, 40 mg, Oral, BID pravastatin, 40 mg, Oral, Nightly pregabalin, 150 mg, Oral, BID risperiDONE, 0.5 mg, Oral, BID senna-docusate sodium, 2 tablet, Oral, Daily PRN medications: acetaminophen OR acetaminophen, loperamide, ondansetron ODT OR ondansetron, polyethylene glycol (PEG) 3350, stomahesive in petrolatum Continuous Assessment Data: (CAT1) Reviewed 3 or more notes from different specialty or health system (each=1). (LOW: 2x CAT1 or independent historian MOD: 3x CAT1 or 1x CAT3 EXTENSIVE: 3x CAT1 and 1x CAT3) Acute, acute on chronic, unstable/uncontrolled chronic problems/diagnoses: Pneumonia Mechanical fall Polypharmacy Hypokalemia Diarrhea Blood 1/2 with CoNS (likely contaminate) Stable chronic problems affecting care, new non-acute diagnoses: H/o hypothyrodism H/o dvt H/o copd- not in exac HLD Bipolar disorder Seizure disorder Plan As a result of the above findings & factors, the following mgmt was pursued: - change to PO Augmentin today - geriatrics consulted and following, medication recs noted and appreciated - prn Imodium - am labs, replace lytes prn - PT/OT/CM/SW - delirium precautions: increase activity - DVT prophylaxis: enoxaparin and encourage ambulation Complexity: Acute illness or injury posing a threat to life or body function (HIGH). Risk: Prescription drug/IVF/colloid was initiated, discontinued, adjusted; or reviewed with decision to maintain current orders (MOD). Advance Directive: Full Code Anticipated Discharge - Date - 09/26/24? - Location - Skilled Facility - Pending the following - insurance auth/precert Total time spent (which include face to face and non face to face encounters) : 32 minutes Extended Emergency Contact Information Primary Emergency Contact: Giana Blanca Mobile Relation: Son Income Tax Preparer needed? No Dennis Davies DO Division of [facility] Medicine [place] [place] Assessment Type and Reason for Visit: Initial (diet kitchen cook referral for poor PO intake) Nutrition Recommendations/Plan: 1. Pt is currently ordered a Regular Diet --> recommend continuation of liberal diet to promote increased PO intake 2. Will continue to monitor PO intake for adequacy 3. Pt with 0-25% intake at meals thus far- RD offered ONS to which pt replies 'they tried to make me drink those before and they are terrible', RD offered Ensure Clear and Magic Cup instead and pt continues to refuse ONS initiation despite encouragement. 4. Will continue to monitor weight changes, labs and overall nutrition status 5. RD will continue to follow up weekly Malnutrition Assessment: Malnutrition Status: At risk for malnutrition (Comment) (will continue to monitor criteria for changes throughout admit) Context: Acute Illness Findings of the 6 clinical characteristics of malnutrition: Energy Intake: Mild decrease in energy intake (Comment) Weight Loss: No significant weight loss (denies that she has had any weight loss TENTER but unable to state UBW, pt CBW 182# bedscale on 09/25, was 180# no method on 09/23 presentation, per EPIC review --> very limited history/nothing recent, noted 05/30/22: 195#) Body Fat Loss: No significant body fat loss Muscle Mass Loss: No significant muscle mass loss Fluid Accumulation: No significant fluid accumulation Viscosity Tester Strength: Not Performed Nutrition Assessment: pt with PMH significant for bipolar disorder, DVT, hypothyroidism, TIA, COPD, COVID-19, depression, dysphagia, fibromyalgia, HLD, IBS, obesity and RAULITO (per merge chart) who presented to [facility] ED on 09/23/24 from facility s/p fall, pt reportedly had a witnessed mechanical fall, also has reportedly been on oxygen for the past few days with cough and increased sputum production, in the ED CXR was concerning for PNA- pt was started on Ceftriaxone, RVP negative, labs notable for creat 1.14, sodium 133, lactic acid normal, CBC with slight leukocytosis at 11.6, pt was refusing blood tests morning of 09/24 nursing notes, Geriatrics was consulted due to fall- pt stated she was sitting next to a friend on the couch and fell forward, pt also reported having some nausea that is impacting appetite, pt RN from facility ([facility]) reported pt with baseline anxiety and follows with in house psychiatric orderly, Geriatrics noted significant polypharmacy- on several psych medications and recommended psychiatry input for ability to limit her pill burden (consult has not been placed), noted 09/24 pt with complaints of loose stools- CDiff and GI panel sent and negative, pt seen by PT/OT with d/c to SNF recs. In terms of nutrition pt has been receiving a Regular Diet since 09/23, PO intakes in flowsheets reviewed --> 09/23: 1-25% D, 09/24: 1-25% B and refused L/D, RD received diet kitchen cook referral for poor intake, at time of assessment pt with breakfast tray in front of her, she states that she tried to eat some but it was cold, RD offered to heat it up but pt requesting a new Estonian muffin and rico- RD called room service to provide, pt states that her appetite is poor because her food was cold, pt denies food allergies, denies chewing/swallowing issues, per review of paper chart at [facility] pt was ordered a regular diet, regular textures/thin liquids, RD offered ONS to which pt replies 'they tried to make me drink those before and they are terrible', RD offered Ensure Clear and Magic Cup instead and pt continues to refuse ONS initiation despite encouragement, pt denies that she has had any weight loss TENTER but unable to 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 Estimated Daily Nutrient Needs: Energy Requirements Based On: Kcal/kg Weight Used for Energy Requirements: [place] Weight for Energy Calculation (kg): 60.2 kg Total Energy Requirements (kcals/day): 1505-1806kcals/day Weight Used for Protein Requirements: [place] Weight in Kg Used for Protein Requirements: 60.2 kg Estimated Total Protein (g/day): 60-72gm pro/day Estimated Daily Total Fluid (ml/day): per MD recommendations Nutrition Related Findings: Lives with: Other (Comment) ([facility] care facility) Orientation Level: Oriented to person, Oriented to time, Oriented to place, Best Verbal Response: Oriented, Teeth: Dentures upper Feeding: Independent Room Service Room Service: Selective Rakan Scale Score: 19. Wound Type: (abrasion to face and chest s/p fall, per wound care: MASD noted to gluteal cleft) Net IO Since Admission: 1,100 mL [09/26/24 1126] Gastrointestinal (WDL): Exceptions to WDL Bowel Sounds (All Quadrants): Active Abdomen Inspection: Soft, Nondistended Last BM Date: 09/25/24, Stool Appearance: Loose, Stool Color: Brown Edema: none Oxygen Therapy: O2 Delivery Method: Nasal cannula, O2 Flow Rate (L/min): 4 L/min Labs and meds reviewed: Scheduled: busPIRone, 10 mg, Oral, TID carBAMazepine, 200 mg, Oral, TID cefTRIAXone, 1,000 mg, IntraVENous, q24h clopidogrel, 75 mg, Oral, Daily enoxaparin, 40 mg, SubCUTAneous, q24h fludrocortisone, 0.1 mg, Oral, Daily folic acid, 1 mg, Oral, Daily guaiFENesin, 600 mg, Oral, BID ipratropium-albuterol, 3 mL, Nebulization, TID levothyroxine, 75 mcg, Oral, qAM AC pantoprazole, 40 mg, Oral, BID pravastatin, 40 mg, Oral, Nightly pregabalin, 150 mg, Oral, BID risperiDONE, 0.5 mg, Oral, BID senna-docusate sodium, 2 tablet, Oral, Daily Continuous: none Current Nutrition Therapies: Adult diet Regular Current Oral Intake Average Meal Intake: 0%, 1-25% Average Supplements Intake: None Ordered Anthropometric Measures: Height: 168.9 cm (5' 6.5") Current Body Weight: 82.6 kg (182 lb) (bedscale 09/25) Weight Source: Bed Scale Admission Body Weight: 81.6 kg (180 lb) (no method 09/23) Usual Body Weight: (per EPIC review --> very limited history/nothing recent, noted 05/30/22: 195#, pt unsure of UBW but denies weight loss TENTER) [place] Body Weight (lbs) (Calculated): 133 lbs [place] Body Weight (Kg) (Calculated): 60 kg % [place] Body Weight (Calculated): 136.8 % BMI (kg/m2) (Calculated): 28.9 Weight Adjustment For: No Adjustment BMI Categories: Overweight (BMI 25.0-29.9) Nutrition Diagnosis: Inadequate oral intake related to (hospitalization, decreased appetite) as evidenced by intake 0-25% Nutrition Interventions: Nutrition Education/Counseling: No recommendation at this time Coordination of Nutrition Care: Continue to monitor while inpatient Plan of Care discussed with: pt Goals: Goals: PO intake 50% or greater, by next RD assessment Nutrition Monitoring and Evaluation: Behavioral-Environmental Outcomes: None Identified Food/Nutrient Intake Outcomes: Food and Nutrient Intake Physical Signs/Symptoms Outcomes: Biochemical Data, GI Status, Fluid Status or Edema, Meal Time Behavior, Weight, Skin, Nutrition Focused Physical Findings Discharge Planning: Too soon to determine Guerda Ventura RD Contact: available via [employer] or *[id number] [facility] Geriatric Medicine Inpatient Consult Service Admission Date:09/23/2024 Assessment Principal Problem: Pneumonia due to organism Active Problems: Pneumonia due to infectious agent Plan Fall - mechanical fall - risk factors include: acute illness, significant polypharmacy (see recs below) - Vitamin D level within normal limits at 40 - Carbamazepine level within normal limits - check orthostatic vital signs - PT/OT as able - PT currently recommending SNF Bipolar disorder - per facility is followed by in house psych team at [facility] - see medication recommendations as below, significant polypharmacy- on several psych medications, would benefit from psychiatry input for ability to limit her pill burden Hypothyroidism - TSH within normal limits - per facility her TENTER dose of Levothyroxine is 88mcg, currently ordered 75mcg, please adjust dose if appropriate- defer management to primary team Polypharmacy - I personally called and spoke with nurse Boyce at [facility] on 09/24 to review medications- reported to be taking the following medications: - Buspar 10mg TID- restarted - Tegretol 200mg TID- ordered here, continue- carbamazepine level within normal range as above - Levothyroxine 88mcg daily- change dosage if appropriate as above - Tramadol 100mg q8hrs PRN Pain- per nursing staff consistently takes 100mg nightly at facility- can continue off for now, monitor for pain- agree with not starting at discharge as this may increase risk for seizure - Trazodone 150mg nightly- assess for need for restarting while here - Seroquel 25mg BID- recommend restarting while inpatient in setting of Bipolar disorder as above - Risperdal 0.5mg BID- recommend restarting while inpatient in setting of Bipolar disorder as above- would benefit from psychiatry input for appropriateness of continuation of both Seroquel and Risperdal exterminator helper termite - Tizanidine 2mg BID- unclear indication for this, would recommend attempts at gradual dose reduction vs changing to PRN - Pregabalin 150mg BID- restarted - Vistaril 25mg BID- OK to continue to hold at this time, 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 alternative exterminator helper termite- due to anticholinergic effects may further contribute to her fall risk - Omeprazole 40mg BID- currently on pantoprazole here - Pravastatin- has been restarted here - Plavix 75mg daily- has been restarted here - Folic Acid 1mg daily- has been restarted here - takes potassium supplementation at facility- assess for need for restarting/continuation while here - Venlafaxine 37,5mg daily- assess for appropriateness of restarting, would benefit from psychiatry guidance on need for continuation at current dosing - Melatonin 10mg nightly- consider adding melatonin PRN for sleep At risk for delirium - increased risk for delirium in setting of acute illness (pna), polypharmacy, hospital environment - continue to treat underlying conditions- currently receiving IV Ceftriaxone - C.Diff and GI PCR pending - recommend delirium protocol - continue to assess and treat for pain - monitor for urinary retention/constipation -Avoid sedating/anticholinergic medications, encourage sleep hygiene, encourage family visits, optimize sensory input and access to assistive devices where indicated, encourage time up in chair as able and D/c [facility], restraints, IV lines, as able Follow-up: 1-2 days as needed Subjective: Chief Complaint: Fall Geriatrics consulted for Fall HPI- patient is known to me 74 y.o. year-old female that presented from facility for fall. Per review of H&P- patient had a witnessed mechanical fall. patient has reportedly been on oxygen for the past few days with cough and sputum production. In the ED, CXR was concerning for PNA. Started on Ceftriaxone. Creat 1.14 on admission, sodium 133. Lactic acid normal, CBC with slight leukocytosis at 11.6 Interval history: remains on 5E GI PCR and C. Diff pending, currently receiving IV Rocephin for pneumonia Patient resting at time of visit, limited participation with exam, wants to rest- reports having coughing, slept well overnight, no reported pain Therapy recommendations Seen by PT/OT today- both recommending SNF Review of Systems Constitutional: Positive for activity change and fatigue. Respiratory: Positive for cough. Musculoskeletal: Negative for arthralgias and gait problem. Psychiatric/Behavioral: Negative for confusion. The patient is not nervous/anxious. Objective: BP 136/64 (BP Location: Right arm, Patient Position: Sitting) Pulse 80 Temp 36.7 C (98 F) (Temporal) Resp 18 Ht 5' 7" (1.702 m) Wt 180 lb (81.6 kg) SpO2 95% BMI 28.19 kg/m Intake/Output Summary (Last 24 hours) at 09/25/2024 1537 Last data filed at 09/25/2024 1259 Gross per 24 hour Intake 150 ml Output -- Net 150 ml Wt Readings from Last 4 Encounters: 09/23/24 180 lb (81.6 kg) Current Facility-Administered Medications: acetaminophen (Tylenol) tablet 650 mg, 650 mg, Oral, q6h PRN, 650 mg at 09/24/24 0555 OR acetaminophen (Tylenol) suppository 650 mg, 650 mg, Rectal, q6h PRN, Lashon Sullivan MD busPIRone (Buspar) tablet 10 mg, 10 mg, Oral, TID, Shweta Carson APRN - GENERAL LABOR FORKLIFT OPERATOR, 10 mg at 09/25/24 1401 carBAMazepine (TEGretol) tablet 200 mg, 200 mg, Oral, TID, Lasohn Sulilvan MD, 200 mg at 09/25/24 0952 cefTRIAXone (Rocephin) 1,000 mg in sodium chloride 0.9 % 50 mL IVPB Mini-Bag Plus, 1,000 mg, IntraVENous, q24h, Lashon Sullivan MD, Stopped at 09/25/24 1235 clopidogrel (Plavix) tablet 75 mg, 75 mg, Oral, Daily, Lashon Sullivan MD, 75 mg at 09/25/24 0858 enoxaparin (Lovenox) syringe 40 mg, 40 mg, SubCUTAneous, q24h, Lashon Sullivan MD, 40 mg at 09/25/24 1539 fludrocortisone (Florinef) tablet 0.1 mg, 0.1 mg, Oral, Daily, Lashon Sullivan MD, 0.1 mg at 09/25/24 0952 folic acid (Folvite) tablet 1 mg, 1 mg, Oral, Daily, Lashon Sullivan MD, 1 mg at 09/25/24 0858 guaiFENesin (Mucinex) 12 hr tablet 600 mg, 600 mg, Oral, BID, Lashon Sullivan MD, 600 mg at 09/25/24 0858 ipratropium-albuterol (Duo-Neb) 0.5-2.5 mg/3 mL nebulizer solution 3 mL, 3 mL, Nebulization, TID, Lashon Sullivan MD, 3 mL at 09/25/24 0757 levothyroxine (Synthroid, Levoxyl) tablet 75 mcg, 75 mcg, Oral, qAM AC, Lashon Sullivan MD, 75 mcg at 09/25/24 0952 ondansetron ODT (Zofran-ODT) disintegrating tablet 4 mg, 4 mg, Oral, q8h PRN, 4 mg at 09/24/24 1517 OR ondansetron (Zofran) injection 4 mg, 4 mg, IntraVENous, q6h PRN, Lashon Sullivan MD pantoprazole (ProtoNix) EC tablet 40 mg, 40 mg, Oral, BID, Lashon Sullivan MD, 40 mg at 09/25/24 153 polyethylene glycol (PEG) 3350 (Miralax) packet 17 g, 17 g, Oral, Daily PRN, Lashon Sullivan MD pravastatin (Pravachol) tablet 40 mg, 40 mg, Oral, Nightly, Lashon Sullivan MD, 40 mg at 09/24/24 2127 pregabalin (Lyrica) capsule 150 mg, 150 mg, Oral, BID, FREDERICK Eisenberg CNP, 150 mg at 09/25/24 0858 risperiDONE (RisperDAL) tablet 0.5 mg, 0.5 mg, Oral, BID, FREDERICK Eisenberg CNP, 0.5 mg at 09/25/24 0859 senna-docusate sodium (Senokot-S) 8.6-50 MG tablet 2 tablet, 2 tablet, Oral, Daily, Lashon Sullivan MD, 2 tablet at 09/25/24 0858 Physical Exam Constitutional: General: She is not in acute distress. Comments: Lying in bed sleeping, easily awakens to verbal stimuli HENT: Mouth/Throat: Mouth: Mucous membranes are moist. Pharynx: Oropharynx is clear. Eyes: General: Right eye: No discharge. Left eye: No discharge. Conjunctiva/sclera: Conjunctivae normal. Cardiovascular: Rate and Rhythm: Normal rate. Pulmonary: Effort: Pulmonary effort is normal. No respiratory distress. Comments: O2 in place via NC Abdominal: General: There is no distension. Palpations: Abdomen is soft. Tenderness: There is no abdominal tenderness. Musculoskeletal: Right lower leg: No edema. Left lower leg: No edema. Neurological: Mental Status: She is alert. Psychiatric: Attention and Perception: Attention normal. Mood and Affect: Mood normal. Behavior: Behavior is not agitated or aggressive. Behavior is cooperative. Labs and Imaging: Recent Results (from the past 24 hours) Vitamin B12 Collection Time: 09/25/24 12:49 AM Result Value Ref Range VITAMIN B12 602 213 - 816 pg/mL Folate Collection Time: 09/25/24 12:49 AM Result Value Ref Range FOLATE RESULT 16.3 7.0 - 31.4 ng/mL TSH Collection Time: 09/25/24 12:49 AM Result Value Ref Range THYROID STIMULATING HORMONE 0.57 0.35 - 4.94 uIU/mL Magnesium Collection Time: 09/25/24 12:49 AM Result Value Ref Range MAGNESIUM 1.5 (L) 1.6 - 2.6 mg/dL CBC auto differential Collection Time: 09/25/24 12:49 AM Result Value Ref Range Auto WBC 12.0 (H) 3.6 - 10.7 10*3/uL RBC 3.64 (L) 3.80 - 5.20 10*6/uL Hemoglobin 11.0 (L) 11.7 - 16.0 g/dL Hematocrit 34.6 (L) 35.0 - 47.0 % MCV 95.1 77.0 - 99.0 fL MCH 30.2 26.0 - 34.0 pg MCHC 31.8 30.5 - 36.0 % RDW 12.8 11.5 - 15.0 % Platelets 246 140 - 440 10*3/uL MPV 10.3 9.0 - 12.7 fL nRBC 0.0 0.0 - 2.0 /100 WBCs Neutrophils Relative 76.3 38.0 - 82.0 % Lymphocytes Relative 11.1 (L) 15.0 - 45.0 % Monocytes Relative 9.7 5.0 - 13.0 % Eosinophils Relative 1.7 0.0 - 6.0 % Basophils Relative 0.5 0.0 - 2.0 % Immature Grans % 0.7 0.0 - 2.0 % Neutrophils Absolute 9.2 (H) 1.8 - 7.5 10*3/uL Lymphocytes Absolute 1.3 1.0 - 4.3 10*3/uL Monocytes Absolute 1.2 (H) 0.0 - 0.9 10*3/uL Eosinophils Absolute 0.2 0.0 - 0.5 10*3/uL Basophils Absolute 0.1 0.0 - 0.2 10*3/uL Immature Grans Absolute 0.1 (H) <0.1 10*3/uL Basic metabolic panel Collection Time: 09/25/24 12:49 AM Result Value Ref Range SODIUM 138 136 - 145 mmol/L POTASSIUM 3.5 3.5 - 5.1 mmol/L CHLORIDE 103 98 - 107 mmol/L CARBON DIOXIDE 27 23 - 31 mmol/L UREA NITROGEN 9 9 - 23 mg/dL CREATININE 0.65 0.57 - 1.11 mg/dL GLUCOSE 99 82 - 115 mg/dL CALCIUM 8.9 8.8 - 10.0 mg/dL ANION GAP 8 3 - 13 mmol/L eGFR >90.0 >60.0 mL/min/1.73m*2 Lab Results Component Value Date TSH 0.57 09/25/2024 No components found for: "B12" Lab Results Component Value Date VITD25 40 09/24/2024 Reviewed: active problem list, medication list, allergies, notes from last encounter, lab results, imaging Images from the original note were not included. PHYSICAL THERAPY [facility] Treatment Note Name/MRN: Andre Blanca ([id number]) Date of : 1950 Age: 74 y.o. Room/Bed: E5-515/E5-515 A Discharge Recommendation: Custodial Facility Equipment Needed: No Prior Level of Function Prior Level of ADL Function: Independent Prior Level of Mobility: Independent; Device: Rollator Prior Level of Transfers: Independent Assessment Pt demo some improved mobility but still below baseline. She demo bed mobility SBA, transfers to FWW CGA-min A, ambulation with FWW and CGA-min A. She is limited by endurance but SpO2 WFL. She would benefit from SNF to promote mobility and endurance Subjective Per RN pt okay for therapy, is pleasant and agree to PT, wanting to get cleaned up Pain: Pt denies any current pain. Medical Precautions: Enhanced Contact, Droplet Proper PPE donned/doffed in accordance with facility standards. Fall Risk: Marinelli Fall Risk Score: 100 (High Risk) Precautions/Restrictions: Lines/Drains/Airways: 4L O2 Overall Cognitive Status: WFL Overall Orientation Status: Oriented x4 Family/Caregiver Present: none Objective Bed Mobility Supine to sit: SBA, Pt denies dizziness. She demo bed mobility SBA with bed rails and increased time. Increased SOB Sit to supine: SBA Transfers/Mobility Sit to stand: Contact Guard, Min Assist, Pt transfer to FWW from bed x3 trials, from toilet x1 with min A progress to CGA. Therapist assist with kanwal care at bed and again at toilet. She stands ~2 min each time with SBA. She demo decreased eccentric control to sit require Ruby Stand to sit: Min Assist Device(s) used: Front wheeled walker Ambulation Ambulation 1 Assistive device(s) used: Front wheeled walker Assist level: Contact Guard, Min Assist, Pt ambulate with FWW and CGA with 1 instance min A at LOB at sink. She demo short shuffling gait. Therapist cues for upright trunk/head, walker management and energy conservation, cues for pursed lip breathing and paced breathing. 1 LOB at sink, cues for walker management in tight spaces and provide min A at belt to correct. Pt limited by SOB, endurance. SPO2 94%-97% and HR 100-120 with mobility. Post ambulation instructed pt on pursed lip breathing with sniffing cue for diaphragmatic activation. She complete ~2 min while seated EOB and reports improved SOB Distance (ft): ~20ft x2 Quality of gait: No LOB, reciprocal stepping, shuffling, slow eugenia Plan Continue acute PT per plan of care. Safety/Education Safety Safety Devices in place: All fall risk precautions in place, call light within reach, left in bed, bed alarm in place, gait belt, patient at risk for falls, and nurse notified Restraints: No Education Education Given To: patient Education Provided: PT Role, PT Goals, Gait Training, Plan of Care, Precautions, Transfer Training, Energy Conservation, Equipment, Fall Prevention Education, Discharge Recommendations, Benefits of Increasing Activity, and Breathing Techniques Education Method: Verbal and Demonstration Barriers to Learning: None Education Outcome: Verbalized Understanding, Demonstrated Understanding, and Continued Education Needed Outcome Measures AM-PAC AM-PAC Inpatient Mobility Raw Score (No Stairs) : 15 [id number] Goals Patient Stated Goal: to return to ECF; decreased dyspnea with mobility Encounter Problems Encounter Problems (Active) Balance Patient will maintain dynamic standing balance for 5 minutes with modified independence in order to demonstrate decreased risk of falling. (Progressing) Start: 09/24/24 Expected End: 10/08/24 Mobility Patient will ambulate 100 feet with modified independence and rolling walker in order to improve safety and independence with mobility. (Progressing) Start: 09/24/24 Expected End: 10/08/24 Pain - Adult Transfers Patient will perform bed mobility with modified independence in order to improve independence and prepare for out of bed mobility. (Progressing) Start: 09/24/24 Expected End: 10/08/24 Patient will complete functional transfer with rolling walker with modified independence in order to prepare for ambulation. (Progressing) Start: 09/24/24 Expected End: 10/08/24 Therapy Time Individual Co-treatment Time In 1323 Time Out 1347 Minutes 24 Timed Code Treatment Minutes: 23 Minutes (ther act x1, gait x1) Walter Bermeo PT Images from the original note were not included. OCCUPATIONAL THERAPY [facility] Initial Evaluation Name/MRN: Andre Blanca ([id number]) Evaluation Date: 09/25/2024 Date of : 1950 Admission Date: 09/23/2024 10:34 AM Age: 74 y.o. Room/Bed: E5-515/E5-515 A Discharge Recommendation: Custodial Facility Assessment IMPRESSION: Pt would benefit from continued therapies to maximize potential and increase indep with ADLs and transfers. Pt is below her baseline. Recommend SNF level therapies at discharge. Admitting Diagnosis: Pneumonia Performance Deficits /Impairments: Decreased Functional Mobility, Decreased ADL status, Decreased Safety Awareness, Decreased Endurance, Decreased Balance, Decreased Cognition, and Decreased Posture Prognosis: Fair Decision Making: Medium Complexity Subjective Pt in bed. (+)Bed alarm Pt agreeable to OT. Pain: Pt denies any current pain. Past Medical History: No past medical history on file. Past Surgical History: No past surgical history on file. Admission Diagnosis: Patient Active Problem List Diagnosis Date Noted Pneumonia due to organism 09/23/2024 Pneumonia due to infectious agent 09/23/2024 Medical Precautions: Enhanced Contact, Droplet Proper PPE donned/doffed in accordance with facility standards. Fall Risk: Marinelli Fall Risk Score: 100 (High Risk) Precautions/Restrictions: N/A Family/Caregiver Present: none Overall Cognitive Status: Exceptions - Arousal/alertness: appropriate responses to stimuli - Following commands: follows one step commands consistently - Memory: decreased recall of biographical information and decreased recall of recent events - Safety judgement: decreased awareness of need for assistance and decreased awareness of need for safety Overall Orientation Status: Ox1 (Did not know place or month or year. Social/Functional History Patient admitted from SNF. - [facility] Assistive Equipment: rollator Prior Level of Function Prior Level of ADL Function: Independent Prior Level of Mobility: Independent; Device: Rollator Prior Level of Transfers: Independent Objective ADLs LE Dressing: Max Assist, Max assist to don bilateral socks seated EOB. Dependent for hygiene Upper Extremity Assessment AROM: WFL Strength: WFL Bed Mobility Supine to sit: SBA Sit to supine: SBA Scooting: SBA Transfers/Mobility Sit to stand: Min Assist Stand to sit: Min Assist Toilet: Min Assist Sitting balance: SBA Standing balance: Min Assist, Static standing balance with min assist with unilateral UE support during task with min assist. Functional mobility: Min Assist, Pt able to take several steps to/from BSC with min assist and mod verbal cues. . Coordination: Normal Coordination Tone: Normal Tone Sensation: Normal Sensation Vision: No Visual Deficits Hearing: normal AM-PAC AM-PAC Inpatient Daily Activity Raw Score: 13 ADL Inpatient CMS G-Code Modifier: CL Plan Pt would benefit from skilled acute OT services to address Strengthening, Balance Training, Self-Care/ADL Training, Functional Mobility Training, Endurance Training, Safety Education and Training, Cognitive Reorientation, Patient/Caregiver Training, and Cognitive/Perceptual Training. Frequency: 3x/week for 4 weeks Barriers: Impaired balance, Lower extremity weakness, Upper extremity weakness, Decreased endurance, Limited safety awareness, Confusion, and Cognitive deficit Safety/Education Safety Safety Devices in place: All fall risk precautions in place, call light within reach, left in bed, bed alarm in place, patient at risk for falls, and nurse notified Restraints: No Education Education Given To: patient Education Provided: OT Role, Plan of Care, ADL Adaptive Strategies, and Transfer Training Education Method: Verbal Barriers to Learning: Cognition Education Outcome: Continued Education Needed Goals Patient Stated Goal: To get stronger. Encounter Problems Encounter Problems (Active) Balance Static standing balance during unilateral UE task x 2 mins with supervision. Start: 09/25/24 Expected End: 10/23/24 Dressings Lower Extremities LE dressing with supervision. Start: 09/25/24 Expected End: 10/23/24 Transfers Toilet transfer with supervision. Start: 09/25/24 Expected End: 10/23/24 Therapy Time Individual Co-Treatment Co-Evaluation Time In 1145 Time Out 1208 Minutes 23 Timed Code Treatment Minutes: 10 Minutes (funct act - 1) Patient's Occupational Therapy Plan of Care supervision is transferred to a [facility] Occupational Therapist. Goals and/or treatment plan was established in collaboration with patient/family/other representatives. Yu Spear MS, OTR/L Hospitalist Progress Note Subjective: Admit Date: 09/23/2024 PCP: Ria Longoria MD Room#: [id number] A Chief Complaint Patient presents with Fall Fall and hit head on floor. c/o R hip pain. Baseline Aox3, per EMS Aox1-2. Takes plavix and has been feeling ill lately. Brief Hospital course: Presented after a fall. Pt had a witnessed mechanical fall at [facility], has a bruise on forehead. Pt reports she has been on oxygen for the past few days with mild cough and sputum production. In ER cxr concerning for pna. Started on IV abx and admitted for further evaluation. Interval History: 09/25/2024-No acute issues or complaints. Case and plan discussed with patient and case management. All questions answered. Adult diet Regular 24HR INTAKE/OUTPUT: Intake/Output Summary (Last 24 hours) at 09/25/2024 1224 Last data filed at 09/25/2024 1034 Gross per 24 hour Intake 63.33 ml Output -- Net 63.33 ml LABS: CBC: Recent Labs 09/23/24 1048 09/24/24 1352 09/25/24 0049 WBC 11.6* 11.8* 12.0* RBC 3.80 3.61* 3.64* HGB 11.7 11.0* 11.0* HCT 35.5 33.3* 34.6* MCV 93.4 92.2 95.1 RDW 12.9 12.9 12.8 PLT 209 220 246 BMP: Recent Labs 09/23/24 1048 09/24/24 1352 09/25/24 0049 NA 133* 138 138 K 3.9 3.3* 3.5 CL 98 102 103 CO2 28 25 27 BUN 23 11 9 CREATININE 1.14* 0.76 0.65 GLUCOSE 148* 127* 99 CALCIUM 8.6* 8.8 8.9 ANIONGAP 7 11 8 LIVER PROFILE: Recent Labs 09/24/24 1352 AST 31 ALT 10 BILITOT 0.5 ALKPHOS 104 PROT 6.8 PT/INR: Recent Labs 09/23/24 1048 PROTIME 12.9* INR 1.2* CARDIAC ENZYMES: No results for input(s): "TROPONINI" in the last 72 hours. Procalcitonin: Lab Results Component Value Date PROCAL 0.18 (H) 09/23/2024 COVID-19 PCR: No results for input(s): "COVID19" in the last 72 hours. Objective: Vitals: BP 136/64 (BP Location: Right arm, Patient Position: Sitting) Pulse 80 Temp 36.7 C (98 F) (Temporal) Resp 18 Ht 5' 7" (1.702 m) Wt 180 lb (81.6 kg) SpO2 95% BMI 28.19 kg/m Pulse Ox: SpO2 Av.5 % Min: 93 % Max: 96 % Supplemental O2: O2 Flow Rate (L/min): 4 L/min Physical Exam Cardiovascular: Rate and Rhythm: Normal rate and regular rhythm. Pulses: Normal pulses. Heart sounds: Normal heart sounds. Pulmonary: Effort: Pulmonary effort is normal. Breath sounds: Normal breath sounds. Abdominal: General: Bowel sounds are normal. Palpations: Abdomen is soft. Medications: Scheduled PRN busPIRone, 10 mg, Oral, TID carBAMazepine, 200 mg, Oral, TID cefTRIAXone, 1,000 mg, IntraVENous, q24h clopidogrel, 75 mg, Oral, Daily enoxaparin, 40 mg, SubCUTAneous, q24h fludrocortisone, 0.1 mg, Oral, Daily folic acid, 1 mg, Oral, Daily guaiFENesin, 600 mg, Oral, BID ipratropium-albuterol, 3 mL, Nebulization, TID levothyroxine, 75 mcg, Oral, qAM AC pantoprazole, 40 mg, Oral, BID pravastatin, 40 mg, Oral, Nightly pregabalin, 150 mg, Oral, BID risperiDONE, 0.5 mg, Oral, BID senna-docusate sodium, 2 tablet, Oral, Daily PRN medications: acetaminophen OR acetaminophen, ondansetron ODT OR ondansetron, polyethylene glycol (PEG) 3350 Continuous Assessment Data: (CAT1) Reviewed 3 or more notes from different specialty or health system (each=1). (LOW: 2x CAT1 or independent historian MOD: 3x CAT1 or 1x CAT3 EXTENSIVE: 3x CAT1 and 1x CAT3) Acute, acute on chronic, unstable/uncontrolled chronic problems/diagnoses: Pneumonia Mechanical fall Polypharmacy Hypokalemia Diarrhea Blood 1/2 with CoNS (likely contaminate) Stable chronic problems affecting care, new non-acute diagnoses: H/o hypothyrodism H/o dvt H/o copd- not in exac HLD Bipolar disorder Seizure disorder Plan As a result of the above findings & factors, the following mgmt was pursued: - continue IV Ceftriaxone for now, change to PO Omnicef upon discharge to complete course at SNF - geriatrics consulted and following, medication recs noted and appreciated - check c.diff and stool PCR - am labs, replace lytes prn - PT/OT/CM/SW - delirium precautions: increase activity - DVT prophylaxis: enoxaparin and encourage ambulation Complexity: Acute illness or injury posing a threat to life or body function (HIGH). Risk: Prescription drug/IVF/colloid was initiated, discontinued, adjusted; or reviewed with decision to maintain current orders (MOD). Advance Directive: Full Code Anticipated Discharge - Date - 09/25/24? - Location - Skilled Facility - Pending the following - insurance auth/precert Total time spent (which include face to face and non face to face encounters) : 35 minutes Extended Emergency Contact Information Primary Emergency Contact: LinwoodGiana Mobile Relation: Son Income Tax Preparer needed? No Dennis Davies DO Division of [facility] Medicine [place] Medical [place] [place]Nutrition rescreen completed. Patient referred to the Dietitian. Poor po intake.TESSIE Sanchez Hospitalist Progress Note Subjective: Admit Date: 09/23/2024 PCP: Ria Longoria MD Room#: [id number] A Chief Complaint Patient presents with Fall Fall and hit head on floor. c/o R hip pain. Baseline Aox3, per EMS Aox1-2. Takes plavix and has been feeling ill lately. Brief Hospital course: Presented after a fall. Pt had a witnessed mechanical fall at [facility], has a bruise on forehead. Pt reports she has been on oxygen for the past few days with mild cough and sputum production. In ER cxr concerning for pna. Started on IV abx and admitted for further evaluation. Interval History: 09/24/2024-Patient states that she is feeling better. Patient is having loose stools. Case and plan discussed with patient and case management. All questions answered. Adult diet Regular 24HR INTAKE/OUTPUT: Intake/Output Summary (Last 24 hours) at 09/24/2024 1307 Last data filed at 09/23/2024 1842 Gross per 24 hour Intake 550 ml Output -- Net 550 ml LABS: CBC: Recent Labs 09/23/24 1048 WBC 11.6* RBC 3.80 HGB 11.7 HCT 35.5 MCV 93.4 RDW 12.9 PLT 209 BMP: Recent Labs 09/23/24 1048 NA 133* K 3.9 CL 98 CO2 28 BUN 23 CREATININE 1.14* GLUCOSE 148* CALCIUM 8.6* ANIONGAP 7 LIVER PROFILE:No results for input(s): "AST", "ALT", "BILITOT", "ALKPHOS", "PROT" in the last 72 hours. No lab exists for component: LABALBU PT/INR: Recent Labs 09/23/24 1048 PROTIME 12.9* INR 1.2* CARDIAC ENZYMES: No results for input(s): "TROPONINI" in the last 72 hours. Procalcitonin: Lab Results Component Value Date PROCAL 0.18 (H) 09/23/2024 COVID-19 PCR: No results for input(s): "COVID19" in the last 72 hours. Objective: Vitals: BP 117/66 (BP Location: Right arm, Patient Position: Lying) Pulse 82 Temp 36.6 C (97.9 F) (Temporal) Resp 16 Ht 5' 7" (1.702 m) Wt 180 lb (81.6 kg) SpO2 97% BMI 28.19 kg/m Pulse Ox: SpO2 Av.9 % Min: 91 % Max: 97 % Supplemental O2: O2 Flow Rate (L/min): 5 L/min Physical Exam Cardiovascular: Rate and Rhythm: Normal rate and regular rhythm. Pulses: Normal pulses. Heart sounds: Normal heart sounds. Pulmonary: Effort: Pulmonary effort is normal. Breath sounds: Normal breath sounds. Abdominal: General: Bowel sounds are normal. Palpations: Abdomen is soft. Medications: Scheduled PRN carBAMazepine, 200 mg, Oral, TID cefTRIAXone, 1,000 mg, IntraVENous, q24h clopidogrel, 75 mg, Oral, Daily enoxaparin, 40 mg, SubCUTAneous, q24h fludrocortisone, 0.1 mg, Oral, Daily folic acid, 1 mg, Oral, Daily guaiFENesin, 600 mg, Oral, BID ipratropium-albuterol, 3 mL, Nebulization, TID levothyroxine, 75 mcg, Oral, qAM AC pantoprazole, 40 mg, Oral, BID pravastatin, 40 mg, Oral, Nightly senna-docusate sodium, 2 tablet, Oral, Daily PRN medications: acetaminophen OR acetaminophen, ondansetron ODT OR ondansetron, polyethylene glycol (PEG) 3350 Continuous Assessment Data: (CAT1) Reviewed 3 or more notes from different specialty or health system (each=1). (LOW: 2x CAT1 or independent historian MOD: 3x CAT1 or 1x CAT3 EXTENSIVE: 3x CAT1 and 1x CAT3) Acute, acute on chronic, unstable/uncontrolled chronic problems/diagnoses: Pneumonia Mechanical fall Polypharmacy Hypokalemia Diarrhea Blood 1/2 with CoNS (likely contaminate) Stable chronic problems affecting care, new non-acute diagnoses: H/o hypothyrodism H/o dvt H/o copd- not in exac HLD Bipolar disorder Plan As a result of the above findings & factors, the following mgmt was pursued: - resp pathogens panel, will DC azithromycin, check sputum for culture, continue IV Ceftriaxone for now - geriatrics consulted and following - check c.diff and stool PCR - am labs, replace lytes prn - PT/OT/CM/SW - delirium precautions: increase activity - DVT prophylaxis: enoxaparin and encourage ambulation Complexity: Acute illness or injury posing a threat to life or body function (HIGH). Risk: Prescription drug/IVF/colloid was initiated, discontinued, adjusted; or reviewed with decision to maintain current orders (MOD). Advance Directive: Full Code Anticipated Discharge - Date - 09/25/24? - Location - Skilled Facility - Pending the following - clinical course Total time spent (which include face to face and non face to face encounters) : 40 minutes Extended Emergency Contact Information Primary Emergency Contact: Giana Blanca Mobile Relation: Son Income Tax Preparer needed? No Dennis Davies DO Division of Hospital Medicine [place]patient Medical [place] [place] Images from the original note were not included. PHYSICAL THERAPY [facility] Initial Evaluation Name/MRN: Andre Blanca ([id number]) Evaluation Date: 09/24/2024 Date of : 1950 Admission Date: 09/23/2024 10:34 AM Age: 74 y.o. Room/Bed: E5508/E5508 A Discharge Recommendation: Custodial Facility Equipment Needed: No Assessment IMPRESSION: 74 y/o female admitted to [facility] 09/23/2024 s/p fall at ECF. Pt reports she typically ambulates with rollator without assist at ECF. Required SBA for bed mobility, min assist for transfers, and min assist for ambulation 25ft with FWW this date. Demo dyspnea with all mobility, however O2 sat 97% on 4L O2. Pt reports dyspnea has been present for a few days. Rec SNF level therapies upon return to ECF due to significatn decline from baseline level of function. Admitting Diagnosis: pneumonia due to organsim Prognosis: good Performance Deficits /Impairments: Decreased Functional Mobility, Decreased Strength, Decreased Safety Awareness, Decreased Endurance, and Decreased Balance Decision Making: Low Complexity Subjective Pt resting in bed and agreeable to PT; pleasant and cooperative. RN okayed pt participation with therapy. Pain: [place] Pain Ratin = Hurts little more Pain Location: R side of back and R hip with mobility Past Medical History: No past medical history on file. Past Surgical History: No past surgical history on file. Admission Diagnosis: Patient Active Problem List Diagnosis Date Noted Pneumonia due to organism 09/23/2024 Pneumonia due to infectious agent 09/23/2024 Medical Precautions: Enhanced Contact Proper PPE donned/doffed in accordance with facility standards. Fall Risk: Marinelli Fall Risk Score: 100 (High Risk) Precautions/Restrictions: Lines/Drains/Airways: 4L O2 via NC Fall Precautions Family/Caregiver Present: none Overall Cognitive Status: Exceptions - Safety judgement: decreased awareness of need for safety - Insights: decreased awareness of deficits Overall Orientation Status: Oriented to Place and Oriented to Person Vision: Not Assessed Hearing: normal Social/Functional History Patient admitted from SNF. Assistive Equipment: rollator Prior Level of Function Prior Level of ADL Function: Independent Prior Level of Mobility: Independent; Device: Rollator Prior Level of Transfers: Independent Objective Lower Extremity Assessment AROM: WFL PROM: WFL Strength: Exceptions: hip flex 3+/5 bilat, knee ext 4-/5 bilat Sensation: Not assessed this session Balance: Balance During Session: Posture: fair Sitting - Static: Independent Sitting - Dynamic: Supervision Standing - Static: Contact Guard Standing - Dynamic: Min Assist Bed Mobility: Supine to sit: SBA; increased time to complete and use of bed rail Transfers Sit to stand: Min Assist Stand to sit: Min Assist Stand pivot: Min Assist Cues for hand placement, assist to elevate and to gain balance upon initial stance Ambulation Ambulation 1 Assistive device(s) used: Front wheeled walker Assist level: Min Assist Distance (ft): 25 x2 Quality of gait: slow eugenia, decreased step amplitude bilat, decreased upright posture; 2-3 minor LOB requiring assist to correct Exercises Exercises Gluteal Sets: x10 BLEs Hip Flexion: seated alternating marches x10 BLEs Knee Long Arc Quad: x10 BLEs Ankle Pumps: x15 BLEs Comments: cues for proper form; increased time to complete due to dyspnea Outcome Measures AM-[facility] How much HELP from another person do you currently need Turning from your back to your side while in a flat bed without using bedrails?: A Little Moving from lying on your back to sitting on the side of a flat bed without using bedrails?: A Little Moving to and from a bed to a chair (including a wheelchair)?: A Little Standing up from a chair using your arms (wheelchair or bedside chair)?: A Little Walking in a hospital room?: A Little Stair climbing assessed?: No (no stairs at ECF) AM-PAC Inpatient Mobility Raw Score (No Stairs) : 15 [facility] Score: Walked 25 ft or more (i.e. walked outside of room) Plan Pt would benefit from skilled acute PT services to address Strengthening, Gait Training, Balance Training, Functional Mobility Training, Endurance Training, and Safety Education and Training. Frequency: 3x/week for 2 weeks Barriers: Impaired balance, Lower extremity weakness, Decreased endurance, and Limited safety awareness Safety/Education Safety Safety Devices in place: call light within reach, left in chair, chair alarm in place, gait belt, and nurse notified Restraints: No Education Education Given To: patient Education Provided: PT Role, PT Goals, Gait Training, Plan of Care, Transfer Training, Fall Prevention Education, and Benefits of Increasing Activity Education Method: Verbal Barriers to Learning: None Education Outcome: Verbalized Understanding Goals Patient Stated Goal: to return to ECF; decreased dyspnea with mobility Encounter Problems Encounter Problems (Active) Balance Patient will maintain dynamic standing balance for 5 minutes with modified independence in order to demonstrate decreased risk of falling. Start: 09/24/24 Expected End: 10/08/24 Mobility Patient will ambulate 100 feet with modified independence and rolling walker in order to improve safety and independence with mobility. Start: 09/24/24 Expected End: 10/08/24 Pain - Adult Transfers Patient will perform bed mobility with modified independence in order to improve independence and prepare for out of bed mobility. Start: 09/24/24 Expected End: 10/08/24 Patient will complete functional transfer with rolling walker with modified independence in order to prepare for ambulation. Start: 09/24/24 Expected End: 10/08/24 Therapy Time Individual Co-Treatment Co-Evaluation Time In 1026 Time Out 1056 Minutes 30 Timed Code Treatment Minutes: 8 Minutes (1 unit TP) Plan to be activated only if patient is admitted or for assessing discharge needs. Tammie Ayers PT Patient's Physical Therapy Plan of Care supervision is transferred to a [facility] Physical Therapist. Goals and/or treatment plan was established in collaboration with patient/family/other representatives. documented in this encounter [facility] 09-27-2024 Plan of care note Problem: Pain - Adult Goal: Verbalizes/displays adequate comfort level or baseline comfort level Outcome: Progressing Problem: Safety - Adult Goal: Free from fall injury Outcome: Progressing Problem: Knowledge Deficit Goal: Patient/family/caregiver demonstrates understanding of disease process, treatment plan, medications, and discharge instructions Outcome: Progressing Problem: Potential for Compromised Skin Integrity Goal: Skin Integrity is Maintained or Improved Outcome: Progressing Goal: Nutritional status is improving Outcome: Progressing Problem: Urinary Incontinence Goal: Perineal skin integrity is maintained or improved Outcome: Progressing Problem: Problem Interventions Goal: Assess Nutritional Intake Outcome: Progressing [facility] 09-26-2024 Note Formatting of this n ote might be different from the original. TCC updated SNF that plan to start auth today. TCC tasked Rosanna to start auth for [facility]. Auth pending. [facility] will follow for auth. [facility] 09-26-2024 Note Formatting of this n ote might be different from the original. TCC updated SNF that plan to start auth today. TCC tasked Rosanna to start auth for [facility] [place]. Auth pending. [facility] will follow for auth. [facility] 09-26-2024 Note Hospitalist Progress Note Subjective: Admit Date: 09/23/2024 PCP: Ria Longoria MD Room#: [id number] A Chief Complaint Patient presents with Fall Fall and hit head on floor. c/o R hip pain. Baseline Aox3, per EMS Aox1-2. Takes plavix and has been feeling ill lately. Brief Hospital course: Presented after a fall. Pt had a witnessed mechanical fall at [facility], has a bruise on forehead. Pt reports she has been on oxygen for the past few days with mild cough and sputum production. In ER cxr concerning for pna. Started on IV abx and admitted for further evaluation. Interval History: 09/26/2024-No acute issues or complaints. Case and plan discussed with patient and case management. All questions answered. Adult diet Regular 24HR INTAKE/OUTPUT: Intake/Output Summary (Last 24 hours) at 09/26/2024 1219 Last data filed at 09/25/2024 1259 Gross per 24 hour Intake 86.67 ml Output -- Net 86.67 ml LABS: CBC: Recent Labs 09/24/24 1352 09/25/24 0049 09/26/24 0502 WBC 11.8* 12.0* 10.5 RBC 3.61* 3.64* 3.59* HGB 11.0* 11.0* 11.1* HCT 33.3* 34.6* 33.0* MCV 92.2 95.1 91.9 RDW 12.9 12.8 13.2 PLT 220 246 294 BMP: Recent Labs 09/24/24 1352 09/25/24 0049 09/26/24 0502 NA 138 138 141 K 3.3* 3.5 3.5 CL 102 103 103 CO2 25 27 29 BUN 11 9 6* CREATININE 0.76 0.65 0.68 GLUCOSE 127* 99 116* CALCIUM 8.8 8.9 8.8 ANIONGAP 11 8 9 LIVER PROFILE: Recent Labs 09/24/24 1352 AST 31 ALT 10 BILITOT 0.5 ALKPHOS 104 PROT 6.8 PT/INR: No results for input(s): "PROTIME", "INR" in the last 72 hours. CARDIAC ENZYMES: No results for input(s): "TROPONINI" in the last 72 hours. Procalcitonin: No results found for: "PROCAL" COVID-19 PCR: No results for input(s): "COVID19" in the last 72 hours. Objective: Vitals: BP 137/80 (BP Location: Right arm, Patient Position: Sitting) Pulse 95 Temp 36.3 ?C (97.4 ?F) (Temporal) Resp 20 Ht 5' 6.5" (1.689 m) Wt 182 lb 1.6 oz (82.6 kg) SpO2 96% BMI 28.95 kg/m? Pulse Ox: SpO2 Av.5 % Min: 93 % Max: 96 % Supplemental O2: O2 Flow Rate (L/min): 4 L/min Physical Exam Cardiovascular: Rate and Rhythm: Normal rate and regular rhythm. Pulses: Normal pulses. Heart sounds: Normal heart sounds. Pulmonary: Effort: Pulmonary effort is normal. Breath sounds: Normal breath sounds. Abdominal: General: Bowel sounds are normal. Palpations: Abdomen is soft. Medications: Scheduled PRN busPIRone, 10 mg, Oral, TID carBAMazepine, 200 mg, Oral, TID cefTRIAXone, 1,000 mg, IntraVENous, q24h clopidogrel, 75 mg, Oral, Daily enoxaparin, 40 mg, SubCUTAneous, q24h fludrocortisone, 0.1 mg, Oral, Daily folic acid, 1 mg, Oral, Daily guaiFENesin, 600 mg, Oral, BID ipratropium-albuterol, 3 mL, Nebulization, TID levothyroxine, 75 mcg, Oral, qAM AC pantoprazole, 40 mg, Oral, BID pravastatin, 40 mg, Oral, Nightly pregabalin, 150 mg, Oral, BID risperiDONE, 0.5 mg, Oral, BID senna-docusate sodium, 2 tablet, Oral, Daily PRN medications: acetaminophen OR acetaminophen, loperamide, ondansetron ODT OR ondansetron, polyethylene glycol (PEG) 3350, stomahesive in petrolatum Continuous Assessment Data: (CAT1) Reviewed 3 or more notes from different specialty or health system (each=1). (LOW: 2x CAT1 or independent historian MOD: 3x CAT1 or 1x CAT3 EXTENSIVE: 3x CAT1 and 1x CAT3) Acute, acute on chronic, unstable/uncontrolled chronic problems/diagnoses: Pneumonia Mechanical fall Polypharmacy Hypokalemia Diarrhea Blood 1/2 with CoNS (likely contaminate) Stable chronic problems affecting care, new non-acute diagnoses: H/o hypothyrodism H/o dvt H/o copd- not in exac HLD Bipolar disorder Seizure disorder Plan As a result of the above findings & factors, the following mgmt was pursued: - change to PO Augmentin today - geriatrics consulted and following, medication recs noted and appreciated - prn Imodium - am labs, replace lytes prn - PT/OT/CM/SW - delirium precautions: increase activity - DVT prophylaxis: enoxaparin and encourage ambulation Complexity: Acute illness or injury posing a threat to life or body function (HIGH). Risk: Prescription drug/IVF/colloid was initiated, discontinued, adjusted; or reviewed with decision to maintain current orders (MOD). Advance Directive: Full Code Anticipated Discharge - Date - 09/26/24? - Location - Skilled Facility - Pending the following - insurance auth/precert Total time spent (which include face to face and non face to face encounters) : 32 minutes Extended Emergency Contact Information Primary Emergency Contact: Giana Blanca Mobile Relation: Son Income Tax Preparer needed? No Dennis Davies DO Division of [facility] Medicine Inpatient Medical Services/[facility] 09-26-2024 Note Hospitalist Progress Note Subjective: Admit Date: 09/23/2024 PCP: Ria Longoria MD Room#: [id number] A Chief Complaint Patient presents with Fall Fall and hit head on floor. c/o R hip pain. Baseline Aox3, per EMS Aox1-2. Takes plavix and has been feeling ill lately. Brief Hospital course: Presented after a fall. Pt had a witnessed mechanical fall at [facility], has a bruise on forehead. Pt reports she has been on oxygen for the past few days with mild cough and sputum production. In ER cxr concerning for pna. Started on IV abx and admitted for further evaluation. Interval History: 09/26/2024-No acute issues or complaints. Case and plan discussed with patient and case management. All questions answered. Adult diet Regular 24HR INTAKE/OUTPUT: Intake/Output Summary (Last 24 hours) at 09/26/2024 1219 Last data filed at 09/25/2024 1259 Gross per 24 hour Intake 86.67 ml Output -- Net 86.67 ml LABS: CBC: Recent Labs 09/24/24 1352 09/25/24 0049 09/26/24 0502 WBC 11.8* 12.0* 10.5 RBC 3.61* 3.64* 3.59* HGB 11.0* 11.0* 11.1* HCT 33.3* 34.6* 33.0* MCV 92.2 95.1 91.9 RDW 12.9 12.8 13.2 PLT 220 246 294 BMP: Recent Labs 09/24/24 1352 09/25/24 0049 09/26/24 0502 NA 138 138 141 K 3.3* 3.5 3.5 CL 102 103 103 CO2 25 27 29 BUN 11 9 6* CREATININE 0.76 0.65 0.68 GLUCOSE 127* 99 116* CALCIUM 8.8 8.9 8.8 ANIONGAP 11 8 9 LIVER PROFILE: Recent Labs 09/24/24 1352 AST 31 ALT 10 BILITOT 0.5 ALKPHOS 104 PROT 6.8 PT/INR: No results for input(s): "PROTIME", "INR" in the last 72 hours. CARDIAC ENZYMES: No results for input(s): "TROPONINI" in the last 72 hours. Procalcitonin: No results found for: "PROCAL" COVID-19 PCR: No results for input(s): "COVID19" in the last 72 hours. Objective: Vitals: BP 137/80 (BP Location: Right arm, Patient Position: Sitting) Pulse 95 Temp 36.3 ?C (97.4 ?F) (Temporal) Resp 20 Ht 5' 6.5" (1.689 m) Wt 182 lb 1.6 oz (82.6 kg) SpO2 96% BMI 28.95 kg/m? Pulse Ox: SpO2 Av.5 % Min: 93 % Max: 96 % Supplemental O2: O2 Flow Rate (L/min): 4 L/min Physical Exam Cardiovascular: Rate and Rhythm: Normal rate and regular rhythm. Pulses: Normal pulses. Heart sounds: Normal heart sounds. Pulmonary: Effort: Pulmonary effort is normal. Breath sounds: Normal breath sounds. Abdominal: General: Bowel sounds are normal. Palpations: Abdomen is soft. Medications: Scheduled PRN busPIRone, 10 mg, Oral, TID carBAMazepine, 200 mg, Oral, TID cefTRIAXone, 1,000 mg, IntraVENous, q24h clopidogrel, 75 mg, Oral, Daily enoxaparin, 40 mg, SubCUTAneous, q24h fludrocortisone, 0.1 mg, Oral, Daily folic acid, 1 mg, Oral, Daily guaiFENesin, 600 mg, Oral, BID ipratropium-albuterol, 3 mL, Nebulization, TID levothyroxine, 75 mcg, Oral, qAM AC pantoprazole, 40 mg, Oral, BID pravastatin, 40 mg, Oral, Nightly pregabalin, 150 mg, Oral, BID risperiDONE, 0.5 mg, Oral, BID senna-docusate sodium, 2 tablet, Oral, Daily PRN medications: acetaminophen OR acetaminophen, loperamide, ondansetron ODT OR ondansetron, polyethylene glycol (PEG) 3350, stomahesive in petrolatum Continuous Assessment Data: (CAT1) Reviewed 3 or more notes from different specialty or health system (each=1). (LOW: 2x CAT1 or independent historian MOD: 3x CAT1 or 1x CAT3 EXTENSIVE: 3x CAT1 and 1x CAT3) Acute, acute on chronic, unstable/uncontrolled chronic problems/diagnoses: Pneumonia Mechanical fall Polypharmacy Hypokalemia Diarrhea Blood 1/2 with CoNS (likely contaminate) Stable chronic problems affecting care, new non-acute diagnoses: H/o hypothyrodism H/o dvt H/o copd- not in exac HLD Bipolar disorder Seizure disorder Plan As a result of the above findings & factors, the following mgmt was pursued: - change to PO Augmentin today - geriatrics consulted and following, medication recs noted and appreciated - prn Imodium - am labs, replace lytes prn - PT/OT/CM/SW - delirium precautions: increase activity - DVT prophylaxis: enoxaparin and encourage ambulation Complexity: Acute illness or injury posing a threat to life or body function (HIGH). Risk: Prescription drug/IVF/colloid was initiated, discontinued, adjusted; or reviewed with decision to maintain current orders (MOD). Advance Directive: Full Code Anticipated Discharge - Date - 09/26/24? - Location - Skilled Facility - Pending the following - insurance auth/precert Total time spent (which include face to face and non face to face encounters) : 32 minutes Extended Emergency Contact Information Primary Emergency Contact: Giana Blanca Mobile Relation: Son Income Tax Preparer needed? No Dennis Davies DO Division of Hospital Medicine Inpatient Medical Services/[facility] 09-26-2024 Note Nutrition Assessment Type and Reason for Visit: Initial (diet kitchen cook referral for poor PO intake) Nutrition Recommendations/Plan: 1. Pt is currently ordered a Regular Diet --> recommend continuation of liberal diet to promote increased PO intake 2. Will continue to monitor PO intake for adequacy 3. Pt with 0-25% intake at meals thus far- RD offered ONS to which pt replies 'they tried to make me drink those before and they are terrible', RD offered Ensure Clear and Magic Cup instead and pt continues to refuse ONS initiation despite encouragement. 4. Will continue to monitor weight changes, labs and overall nutrition status 5. RD will continue to follow up weekly Malnutrition Assessment: Malnutrition Status: At risk for malnutrition (Comment) (will continue to monitor criteria for changes throughout admit) Context: Acute Illness Findings of the 6 clinical characteristics of malnutrition: Energy Intake: Mild decrease in energy intake (Comment) Weight Loss: No significant weight loss (denies that she has had any weight loss TENTER but unable to state UBW, pt CBW 182# bedscale on 09/25, was 180# no method on 09/23 presentation, per EPIC review --> very limited history/nothing recent, noted 05/30/22: 195#) Body Fat Loss: No significant body fat loss Muscle Mass Loss: No significant muscle mass loss Fluid Accumulation: No significant fluid accumulation Viscosity Tester Strength: Not Performed Nutrition Assessment: pt with PMH significant for bipolar disorder, DVT, hypothyroidism, TIA, COPD, COVID-19, depression, dysphagia, fibromyalgia, HLD, IBS, obesity and RAULITO (per merge chart) who presented to [facility] ED on 09/23/24 from facility s/p fall, pt reportedly had a witnessed mechanical fall, also has reportedly been on oxygen for the past few days with cough and increased sputum production, in the ED CXR was concerning for PNA- pt was started on Ceftriaxone, RVP negative, labs notable for creat 1.14, sodium 133, lactic acid normal, CBC with slight leukocytosis at 11.6, pt was refusing blood tests morning of 09/24 nursing notes, Geriatrics was consulted due to fall- pt stated she was sitting next to a friend on the couch and fell forward, pt also reported having some nausea that is impacting appetite, pt RN from facility ([facility]) reported pt with baseline anxiety and follows with in house psychiatric orderly, Geriatrics noted significant polypharmacy- on several psych medications and recommended psychiatry input for ability to limit her pill burden (consult has not been placed), noted 09/24 pt with complaints of loose stools- CDiff and GI panel sent and negative, pt seen by PT/OT with d/c to [facility] recs. In terms of nutrition pt has been receiving a Regular Diet since 09/23, PO intakes in flowsheets reviewed --> 09/23: 1-25% D, 09/24: 1-25% B and refused L/D, RD received diet kitchen cook referral for poor intake, at time of assessment pt with breakfast tray in front of her, she states that she tried to eat some but it was cold, RD offered to heat it up but pt requesting a new Estonian muffin and rico- RD called room service to provide, pt states that her appetite is poor because her food was cold, pt denies food allergies, denies chewing/swallowing issues, per review of paper chart at [facility] pt was ordered a regular diet, regular textures/thin liquids, RD offered ONS to which pt replies 'they tried to make me drink those before and they are terrible', RD offered Ensure Clear and Magic Cupinstead and pt continues to refuse ONS initiation despite encouragement, pt denies that she has had any weight loss TENTER but unable to 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 Estimated Daily Nutrient Needs: Energy Requirements Based On: Kcal/kg Weight Used for Energy Requirements: [place] Weight for Energy Calculation (kg): 60.2 kg Total Energy Requirements (kcals/day): 1505-1806kcals/day Weight Used for Protein Requirements: [place] Weight in Kg Used for Protein Requirements: 60.2 kg Estimated Total Protein (g/day): 60-72gm pro/day Estimated Daily Total Fluid (ml/day): per MD recommendations Nutrition Related Findings: Lives with: Other (Comment) ([facility] care facility) Orientation Level: Oriented to person, Oriented to time, Oriented to place, Best Verbal Response: Oriented, Teeth: Dentures upper Feeding: Independent Room Service Room Service: Selective Rakan Scale Score: 19. Wound Type: (abrasion to face and chest s/p fall, per wound care: MASD noted to gluteal cleft) Net IO Since Admission: 1,100 mL [09/26/24 1126] Gastrointestinal (WDL): Exceptions to WDL Bowel Sounds (All Quadrants): Active Abdomen Inspection: Soft, Nondistended Last BM Date: 09/25/24, Stool Appearance: Loose, Stool Color: Brown Edema: none Oxygen Therapy: O2 Delivery Method: N (more content not included)... [facility] 09-26-2024 Note Nutrition Assessment Type and Reason for Visit: Initial (diet kitchen cook referral for poor PO intake) Nutrition Recommendations/Plan: 1. Pt is currently ordered a Regular Diet --> recommend continuation of liberal diet to promote increased PO intake 2. Will continue to monitor PO intake for adequacy 3. Pt with 0-25% intake at meals thus far- RD offered ONS to which pt replies 'they tried to make me drink those before and they are terrible', RD offered Ensure Clear and Magic Cup instead and pt continues to refuse ONS initiation despite encouragement. 4. Will continue to monitor weight changes, labs and overall nutrition status 5. RD will continue to follow up weekly Malnutrition Assessment: Malnutrition Status: At risk for malnutrition (Comment) (will continue to monitor criteria for changes throughout admit) Context: Acute Illness Findings of the 6 clinical characteristics of malnutrition: Energy Intake: Mild decrease in energy intake (Comment) Weight Loss: No significant weight loss (denies that she has had any weight loss TENTER but unable to state UBW, pt CBW 182# bedscale on 09/25, was 180# no method on 09/23 presentation, per EPIC review --> very limited history/nothing recent, noted 05/30/22: 195#) Body Fat Loss: No significant body fat loss Muscle Mass Loss: No significant muscle mass loss Fluid Accumulation: No significant fluid accumulation Viscosity Tester Strength: Not Performed Nutrition Assessment: pt with PMH significant for bipolar disorder, DVT, hypothyroidism, TIA, COPD, COVID-19, depression, dysphagia, fibromyalgia, HLD, IBS, obesity and RAULITO (per merge chart) who presented to [facility] ED on 09/23/24 from facility s/p fall, pt reportedly had a witnessed mechanical fall, also has reportedly been on oxygen for the past few days with cough and increased sputum production, in the ED CXR was concerning for PNA- pt was started on Ceftriaxone, RVP negative, labs notable for creat 1.14, sodium 133, lactic acid normal, CBC with slight leukocytosis at 11.6, pt was refusing blood tests morning of 09/24 nursing notes, Geriatrics was consulted due to fall- pt stated she was sitting next to a friend on the couch and fell forward, pt also reported having some nausea that is impacting appetite, pt RN from facility ([facility]) reported pt with baseline anxiety and follows with in house psychiatric orderly, Geriatrics noted significant polypharmacy- on several psych medications and recommended psychiatry input for ability to limit her pill burden (consult has not been placed), noted 09/24 pt with complaints of loose stools- CDiff and GI panel sent and negative, pt seen by PT/OT with d/c to SNF recs. In terms of nutrition pt has been receiving a Regular Diet since 09/23, PO intakes in flowsheets reviewed --> 09/23: 1-25% D, 09/24: 1-25% B and refused L/D, RD received diet kitchen cook referral for poor intake, at time of assessment pt with breakfast tray in front of her, she states that she tried to eat some but it was cold, RD offered to heat it up but pt requesting a new Estonian muffin and rico- RD called room service to provide, pt states that her appetite is poor because her food was cold, pt denies food allergies, denies chewing/swallowing issues, per review of paper chart at [facility] pt was ordered a regular diet, regular textures/thin liquids, RD offered ONS to which pt replies 'they tried to make me drink those before and they are terrible', RD offered Ensure Clear and Magic Cupinstead and pt continues to refuse ONS initiation despite encouragement, pt denies that she has had any weight loss TENTER but unable to 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 Estimated Daily Nutrient Needs: Energy Requirements Based On: Kcal/kg Weight Used for Energy Requirements: [place] Weight for Energy Calculation (kg): 60.2 kg Total Energy Requirements (kcals/day): 1505-1806kcals/day Weight Used for Protein Requirements: [place] Weight in Kg Used for Protein Requirements: 60.2 kg Estimated Total Protein (g/day): 60-72gm pro/day Estimated Daily Total Fluid (ml/day): per MD recommendations Nutrition Related Findings: Lives with: Other (Comment) (ex[facility] helper term[facility] care facility) Orientation Level: Oriented to person, Oriented to time, Oriented to place, Best Verbal Response: Oriented, Teeth: Dentures upper Feeding: Independent Room Service Room Service: Selective Rakan Scale Score: 19. Wound Type: (abrasion to face and chest s/p fall, per wound care: MASD noted to gluteal cleft) Net IO Since Admission: 1,100 mL [09/26/24 1126] Gastrointestinal (WDL): Exceptions to WDL Bowel Sounds (All Quadrants): Active Abdomen Inspection: Soft, Nondistended Last BM Date: 09/25/24, Stool Appearance: Loose, Stool Color: Brown Edema: none Oxygen Therapy: O2 Delivery Method: N (more content not included)... [facility] 09-26-2024 Nurse Note Wound Care consulted for Pressure Injury Prevention. Pt's Rakan score= 18 on 09/25/2024 Pt's pressure points assessed. Pt's Heels, Buttocks/coccyx, Back, Elbows, Occiput and ears are all blanching and intact. No pressure injuries noted. Noted on assessment MASD wound to groin. Pericare provided and Zinc/Moisture Barrier ointment obtained and applied to pt. Instructed pt on pressure injury prevention and importance of turning/postioning every 2 hrs while in bed and every 15 min while sitting in chair. Pt verbalized understanding. Prevention Measures in place, including: [place] sheet with pillows in place, Bilateral) foam heel protectors obtained and applied to pt, Heels elevated off bed on pillows, Sacral foam obtained and applied to pt, Waffle chair cushion obtained for pt when up to chair. Skin Care precaution order set in place. Dietitian consult in place. PT/OT consult in place. D/W nursing staff skin assessment, preventions, and interventions implemented. Will continue to follow pt. Please Voicera for any questions or concerns. Kimmy Alexandre RN, BSN [facility] 09-26-2024 Plan of care note Problem: Pain - Adult Goal: Verbalizes/displays adequate comfort level or baseline comfort level Outcome: Progressing Flowsheets (Taken 09/26/2024454) Verbalizes/displays adequate comfort level or baseline comfort level: Encourage patient to monitor pain and request assistance Assess pain using appropriate pain scale Problem: Safety - Adult Goal: Free from fall injury Outcome: Progressing Problem: Knowledge Deficit Goal: Patient/family/caregiver demonstrates understanding of disease process, treatment plan, medications, and discharge instructions Outcome: Progressing Flowsheets (Taken 09/26/2024454) Patient/family/caregiver demonstrates understanding of disease process, treatment plan, medications, and discharge instructions: Provide teaching at level of understanding Problem: Potential for Compromised Skin Integrity Goal: Skin Integrity is Maintained or Improved Outcome: Progressing Flowsheets (Taken 09/26/2024454) Skin integrity is maintained or improved: Assess and monitor skin integrity Keep skin clean and dry Identify patients at risk for skin breakdown on admission and per policy Avoid shearing [facility] 09-25-2024 Hospital Discharg e instructions Dennis Davies DO - 09/25/2024 12:48 PM EST As tolerated NA Nieves RN - 09/25/2024 12:48 PM EST Images from the original note were not included. Continuity of Care Form Patient Name: Andre Blanca : 1950 Admit date: 09/23/2024 Discharge date: 09/27/2024 Code Status Order: Full Code Advance Directives: N Admitting Physician: Lashon Sullivan MD PCP: Ria Longoria MD Discharging Nurse: Gal[facility] Unit/Room#: E5-515/E5-515 A Discharging Unit Emergency Contact: Extended Emergency Contact Information Primary Emergency Contact: BlancaGiana Mobile Relation: Son Income Tax Preparer needed? No Past Surgical History: No past surgical history on file. Immunization History: There is no immunization history on file for this patient. Active Problems: Medical Problems Problem List * (Principal) Pneumonia due to organism Pneumonia due to infectious agent Isolation/Infection: Enhanced Contact, Droplet C. difficile Rule-Out, Gastrointestinal Rule-Out, Respiratory Infectious Disease Nurse Assessment: Last Vital Signs: BP 136/64 (BP Location: Right arm, Patient Position: Sitting) Pulse 80 Temp 36.7 C (98 F) (Temporal) Resp 18 Ht 5' 7" (1.702 m) Wt 180 lb (81.6 kg) SpO2 95% BMI 28.19 kg/m Last documented pain score (0-10 scale): Last Weight: Wt Readings from Last 1 Encounters: 09/23/24 180 lb (81.6 kg) Mental Status: ROSALIO Patient Mental Status: oriented and alert IV Access: ROSALIO IV Access: None Nursing Mobility/ADLs: Walking Minimal assistance Transfer Minimal assistance Bathing Minimal assistance Dressing Minimal assistance Toileting Minimal assistance Feeding Independent Junction Maker Independent Med Delivery no Wound Care Documentation and Therapy: Elimination: Continence: Bowel: no Bladder: yes Urinary Catheter: None Colostomy/Ileostomy/Ileal Conduit: None Date of Last BM: 09/27/2024 Intake/Output Summary (Last 24 hours) at 09/25/2024 1248 Last data filed at 09/25/2024 1034 Gross per 24 hour Intake 63.33 ml Output -- Net 63.33 ml I/O last 3 completed shifts: In: 400 (4.9 mL/kg) [P.O.:400] Out: - (0 mL/kg) Weight: 81.6 kg Safety Concerns: at risk for falls Impairments/Disabilities: hearing Nutrition Therapy: Current Nutrition Therapy: Oral diet: general Routes of Feeding: oral Liquids: no restrictions Daily Fluid Restriction: no Last Modified Barium Swallow with Video (Video Swallowing Test): not done Treatments at the Time of Hospital Discharge: Respiratory Treatments: Oxygen Therapy: is on oxygen at 3 L/min per nasal cannula. Ventilator: No ventilator support Rehab Therapies: physical therapy, occupational therapy, nursing, and aide Weight Bearing Status/Restrictions: no restriction Other Medical Equipment (for information only, NOT a DME order): bedside commode and walker Other Treatments: Patient's personal belongings (please select all that are sent with patient): none RN SIGNATURE: MANAGEMENT/SOCIAL WORK SECTION Inpatient Status Date: 09/23/2024 Discharging to Facility/ Agency Name: [facility] Address:[address] [place] [address] Global Account Director/Bean Snapper signature: ICIAN SECTION Name: Andre Sharp Linwood Prognosis: excellent Condition at Discharge: stable Rehab Potential (if transferring to Rehab): excellent Recommended Labs or Other Treatments After Discharge: CBC and BMP in 3 days The individual is being admitted to a nursing facility directly from an [facility] or a unit of a [facility] care surgical hospital that is not operated by or licensed by [facility] under section 5119.14 or 5160-3-15.1 5 The individual requires the level of services provided by a nursing facility for the condition for which he or she was treated in the hospital and, Physician Certification: I certify the above information and transfer of Andre Blanca is necessary for the continuing treatment of the diagnosis listed and that she requires longterm facility for less than 30 days. Update Admission H&P: No change in H&P PHYSICIAN SIGNATURE: documented in this encounter [facility] 09-25-2024 Note OCCUPATIONAL THERAPY [facility] Initial Evaluation Name/MRN: Andre Blanca ([id number]) Evaluation Date: 09/25/2024 Date of : 1950 Admission Date: 09/23/2024 10:34 AM Age: 74 y.o. Room/Bed: E5-515/E5-515 A Discharge Recommendation: Custodial Facility Assessment IMPRESSION: Pt would benefit from continued therapies to maximize potential and increase indep with ADLs and transfers. Pt is below her baseline. Recommend SNF level therapies at discharge. Admitting Diagnosis: Pneumonia Performance Deficits /Impairments: Decreased Functional Mobility, Decreased ADL status, Decreased Safety Awareness, Decreased Endurance, Decreased Balance, Decreased Cognition, and Decreased Posture Prognosis: Fair Decision Making: Medium Complexity Subjective Pt in bed. (+)Bed alarm Pt agreeable to OT. Pain: Pt denies any current pain. Past Medical History: No past medical history on file. Past Surgical History: No past surgical history on file. Admission Diagnosis: Patient Active Problem List Diagnosis Date Noted Pneumonia due to organism 09/23/2024 Pneumonia due to infectious agent 09/23/2024 Medical Precautions: Enhanced Contact, Droplet Proper PPE donned/doffed in accordance with facility standards. Fall Risk: Marinelli Fall Risk Score: 100 (High Risk) Precautions/Restrictions: N/A Family/Caregiver Present: none Overall Cognitive Status: Exceptions - Arousal/alertness: appropriate responses to stimuli - Following commands: follows one step commands consistently - Memory: decreased recall of biographical information and decreased recall of recent events - Safety judgement: decreased awareness of need for assistance and decreased awareness of need for safety Overall Orientation Status: Ox1 (Did not know place or month or year. Social/Functional History Patient admitted from SNF. - [facility] Assistive Equipment: rollator Prior Level of Function Prior Level of ADL Function: Independent Prior Level of Mobility: Independent; Device: Rollator Prior Level of Transfers: Independent Objective ADLs LE Dressing: Max Assist, Max assist to don bilateral socks seated EOB. Dependent for hygiene Upper Extremity Assessment AROM: WFL Strength: WFL Bed Mobility Supine to sit: SBA Sit to supine: SBA Scooting: SBA Transfers/Mobility Sit to stand: Min Assist Stand to sit: Min Assist Toilet: Min Assist Sitting balance: SBA Standing balance: Min Assist, Static standing balance with min assist with unilateral UE support during task with min assist. Functional mobility: Min Assist, Pt able to take several steps to/from BSC with min assist and mod verbal cues. . Coordination: Normal Coordination Tone: Normal Tone Sensation: Normal Sensation Vision: No Visual Deficits Hearing: normal AM-PAC AM-PAC Inpatient Daily Activity Raw Score: 13 ADL Inpatient CMS G-Code Modifier: CL Plan Pt would benefit from skilled acute OT services to address Strengthening, Balance Training, Self-Care/ADL Training, Functional Mobility Training, Endurance Training, Safety Education and Training, Cognitive Reorientation, Patient/Caregiver Training, and Cognitive/Perceptual Training. Frequency: 3x/week for 4 weeks Barriers: Impaired balance, Lower extremity weakness, Upper extremity weakness, Decreased endurance, Limited safety awareness, Confusion, and Cognitive deficit Safety/Education Safety Safety Devices in place: All fall risk precautions in place, call light within reach, left in bed, bed alarm in place, patient at risk for falls, and nurse notified Restraints: No Education Education Given To: patient Education Provided: OT Role, Plan of Care, ADL Adaptive Strategies, and Transfer Training Education Method: Verbal Barriers to Learning: Cognition Education Outcome: Continued Education Needed Goals Patient Stated Goal: To get stronger. Encounter Problems Encounter Problems (Active) Balance Static standing balance during unilateral UE task x 2 mins with supervision. Start: 09/25/24 Expected End: 10/23/24 Dressings Lower Extremities LE dressing with supervision. Start: 09/25/24 Expected End: 10/23/24 Transfers Toilet transfer with supervision. Start: 09/25/24 Expected End: 10/23/24 Therapy Time Individual Co-Treatment Co-Evaluation Time In 1145 Time Out 1208 Minutes 23 Timed Code Treatment Minutes: 10 Minutes (funct act - 1) Patient's Occupational Therapy Plan of Care supervision is transferred to a [facility] Services Occupational Therapist. Goals and/or treatment plan was established in collaboration with patient/family/other representatives. Yu Spear MS, OTR/L [facility] 09-25-2024 Note OCCUPATIONAL THERAPY [facility] Initial Evaluation Name/MRN: Andre Blanca ([id number]) Evaluation Date: 09/25/2024 Date of : 1950 Admission Date: 09/23/2024 10:34 AM Age: 74 y.o. Room/Bed: E5[facility] A Discharge Recommendation: Custodial Facility Assessment IMPRESSION: Pt would benefit from continued therapies to maximize potential and increase indep with ADLs and transfers. Pt is below her baseline. Recommend SNF level therapies at discharge. Admitting Diagnosis: Pneumonia Performance Deficits /Impairments: Decreased Functional Mobility, Decreased ADL status, Decreased Safety Awareness, Decreased Endurance, Decreased Balance, Decreased Cognition, and Decreased Posture Prognosis: Fair Decision Making: Medium Complexity Subjective Pt in bed. (+)Bed alarm Pt agreeable to OT. Pain: Pt denies any current pain. Past Medical History: No past medical history on file. Past Surgical History: No past surgical history on file. Admission Diagnosis: Patient Active Problem List Diagnosis Date Noted Pneumonia due to organism 09/23/2024 Pneumonia due to infectious agent 09/23/2024 Medical Precautions: Enhanced Contact, Droplet Proper PPE donned/doffed in accordance with facility standards. Fall Risk: Marinelli Fall Risk Score: 100 (High Risk) Precautions/Restrictions: N/A Family/Caregiver Present: none Overall Cognitive Status: Exceptions - Arousal/alertness: appropriate responses to stimuli - Following commands: follows one step commands consistently - Memory: decreased recall of biographical information and decreased recall of recent events - Safety judgement: decreased awareness of need for assistance and decreased awareness of need for safety Overall Orientation Status: Ox1 (Did not know place or month or year. Social/Functional History Patient admitted from SNF. - [facility] Assistive Equipment: rollator Prior Level of Function Prior Level of ADL Function: Independent Prior Level of Mobility: Independent; Device: Rollator Prior Level of Transfers: Independent Objective ADLs LE Dressing: Max Assist, Max assist to don bilateral socks seated EOB. Dependent for hygiene Upper Extremity Assessment AROM: WFL Strength: WFL Bed Mobility Supine to sit: SBA Sit to supine: SBA Scooting: SBA Transfers/Mobility Sit to stand: Min Assist Stand to sit: Min Assist Toilet: Min Assist Sitting balance: SBA Standing balance: Min Assist, Static standing balance with min assist with unilateral UE support during task with min assist. Functional mobility: Min Assist, Pt able to take several steps to/from BSC with min assist and mod verbal cues. . Coordination: Normal Coordination Tone: Normal Tone Sensation: Normal Sensation Vision: No Visual Deficits Hearing: normal AM-PAC AM-PAC Inpatient Daily Activity Raw Score: 13 ADL Inpatient CMS G-Code Modifier: CL Plan Pt would benefit from skilled acute OT services to address Strengthening, Balance Training, Self-Care/ADL Training, Functional Mobility Training, Endurance Training, Safety Education and Training, Cognitive Reorientation, Patient/Caregiver Training, and Cognitive/Perceptual Training. Frequency: 3x/week for 4 weeks Barriers: Impaired balance, Lower extremity weakness, Upper extremity weakness, Decreased endurance, Limited safety awareness, Confusion, and Cognitive deficit Safety/Education Safety Safety Devices in place: All fall risk precautions in place, call light within reach, left in bed, bed alarm in place, patient at risk for falls, and nurse notified Restraints: No Education Education Given To: patient Education Provided: OT Role, Plan of Care, ADL Adaptive Strategies, and Transfer Training Education Method: Verbal Barriers to Learning: Cognition Education Outcome: Continued Education Needed Goals Patient Stated Goal: To get stronger. Encounter Problems Encounter Problems (Active) Balance Static standing balance during unilateral UE task x 2 mins with supervision. Start: 09/25/24 Expected End: 10/23/24 Dressings Lower Extremities LE dressing with supervision. Start: 09/25/24 Expected End: 10/23/24 Transfers Toilet transfer with supervision. Start: 09/25/24 Expected End: 10/23/24 Therapy Time Individual Co-Treatment Co-Evaluation Time In 1145 Time Out 1208 Minutes 23 Timed Code Treatment Minutes: 10 Minutes (funct act - 1) Patient's Occupational Therapy Plan of Care supervision is transferred to a [facility] Occupational Therapist. Goals and/or treatment plan was established in collaboration with patient/family/other representatives. Yu Spear MS, OTR/L [facility] 09-25-2024 Note Hospitalist Progress Note Subjective: Admit Date: 09/23/2024 PCP: Ria Longoria MD Room#: E5-515/[id number] A Chief Complaint Patient presents with Fall Fall and hit head on floor. c/o R hip pain. Baseline Aox3, per EMS Aox1-2. Takes plavix and has been feeling ill lately. Brief Hospital course: Presented after a fall. Pt had a witnessed mechanical fall at [facility], has a bruise on forehead. Pt reports she has been on oxygen for the past few days with mild cough and sputum production. In ER cxr concerning for pna. Started on IV abx and admitted for further evaluation. Interval History: 09/25/2024-No acute issues or complaints. Case and plan discussed with patient and case management. All questions answered. Adult diet Regular 24HR INTAKE/OUTPUT: Intake/Output Summary (Last 24 hours) at 09/25/2024 1224 Last data filed at 09/25/2024 1034 Gross per 24 hour Intake 63.33 ml Output -- Net 63.33 ml LABS: CBC: Recent Labs 09/23/24 1048 09/24/24 1352 09/25/24 0049 WBC 11.6* 11.8* 12.0* RBC 3.80 3.61* 3.64* HGB 11.7 11.0* 11.0* HCT 35.5 33.3* 34.6* MCV 93.4 92.2 95.1 RDW 12.9 12.9 12.8 PLT 209 220 246 BMP: Recent Labs 09/23/24 1048 09/24/24 1352 09/25/24 0049 NA 133* 138 138 K 3.9 3.3* 3.5 CL 98 102 103 CO2 28 25 27 BUN 23 11 9 CREATININE 1.14* 0.76 0.65 GLUCOSE 148* 127* 99 CALCIUM 8.6* 8.8 8.9 ANIONGAP 7 11 8 LIVER PROFILE: Recent Labs 09/24/24 1352 AST 31 ALT 10 BILITOT 0.5 ALKPHOS 104 PROT 6.8 PT/INR: Recent Labs 09/23/24 1048 PROTIME 12.9* INR 1.2* CARDIAC ENZYMES: No results for input(s): "TROPONINI" in the last 72 hours. Procalcitonin: Lab Results Component Value Date PROCAL 0.18 (H) 09/23/2024 COVID-19 PCR: No results for input(s): "COVID19" in the last 72 hours. Objective: Vitals: BP 136/64 (BP Location: Right arm, Patient Position: Sitting) Pulse 80 Temp 36.7 ?C (98 ?F) (Temporal) Resp 18 Ht 5' 7" (1.702 m) Wt 180 lb (81.6 kg) SpO2 95% BMI 28.19 kg/m? Pulse Ox: SpO2 Av.5 % Min: 93 % Max: 96 % Supplemental O2: O2 Flow Rate (L/min): 4 L/min Physical Exam Cardiovascular: Rate and Rhythm: Normal rate and regular rhythm. Pulses: Normal pulses. Heart sounds: Normal heart sounds. Pulmonary: Effort: Pulmonary effort is normal. Breath sounds: Normal breath sounds. Abdominal: General: Bowel sounds are normal. Palpations: Abdomen is soft. Medications: Scheduled PRN busPIRone, 10 mg, Oral, TID carBAMazepine, 200 mg, Oral, TID cefTRIAXone, 1,000 mg, IntraVENous, q24h clopidogrel, 75 mg, Oral, Daily enoxaparin, 40 mg, SubCUTAneous, q24h fludrocortisone, 0.1 mg, Oral, Daily folic acid, 1 mg, Oral, Daily guaiFENesin, 600 mg, Oral, BID ipratropium-albuterol, 3 mL, Nebulization, TID levothyroxine, 75 mcg, Oral, qAM AC pantoprazole, 40 mg, Oral, BID pravastatin, 40 mg, Oral, Nightly pregabalin, 150 mg, Oral, BID risperiDONE, 0.5 mg, Oral, BID senna-docusate sodium, 2 tablet, Oral, Daily PRN medications: acetaminophen OR acetaminophen, ondansetron ODT OR ondansetron, polyethylene glycol (PEG) 3350 Continuous Assessment Data: (CAT1) Reviewed 3 or more notes from different specialty or health system (each=1). (LOW: 2x CAT1 or independent historian MOD: 3x CAT1 or 1x CAT3 EXTENSIVE: 3x CAT1 and 1x CAT3) Acute, acute on chronic, unstable/uncontrolled chronic problems/diagnoses: Pneumonia Mechanical fall Polypharmacy Hypokalemia Diarrhea Blood 1/2 with CoNS (likely contaminate) Stable chronic problems affecting care, new non-acute diagnoses: H/o hypothyrodism H/o dvt H/o copd- not in exac HLD Bipolar disorder Seizure disorder Plan As a result of the above findings & factors, the following mgmt was pursued: - continue IV Ceftriaxone for now, change to PO Omnicef upon discharge to complete course at [facility] - geriatrics consulted and following, medication recs noted and appreciated - check c.diff and stool PCR - am labs, replace lytes prn - PT/OT/CM/SW - delirium precautions: increase activity - DVT prophylaxis: enoxaparin and encourage ambulation Complexity: Acute illness or injury posing a threat to life or body function (HIGH). Risk: Prescription drug/IVF/colloid was initiated, discontinued, adjusted; or reviewed with decision to maintain current orders (MOD). Advance Directive: Full Code Anticipated Discharge - Date - 09/25/24? - Location - Skilled Facility - Pending the following - insurance auth/precert Total time spent (which include face to face and non face to face encounters) : 35 minutes Extended Emergency Contact Information Primary Emergency Contact: Giana Blanca Mobile Relation: Son Income Tax Preparer needed? No Dennis Davies DO Division of Hospital Medicine Inpatient Medical Services/[facility] 09-25-2024 Note Hospitalist Progress Note Subjective: Admit Date: 09/23/2024 PCP: Ria Longoria MD Room#: [id number] A Chief Complaint Patient presents with Fall Fall and hit head on floor. c/o R hip pain. Baseline Aox3, per EMS Aox1-2. Takes plavix and has been feeling ill lately. Brief Hospital course: Presented after a fall. Pt had a witnessed mechanical fall at [facility], has a bruise on forehead. Pt reports she has been on oxygen for the past few days with mild cough and sputum production. In ER cxr concerning for pna. Started on IV abx and admitted for further evaluation. Interval History: 09/25/2024-No acute issues or complaints. Case and plan discussed with patient and case management. All questions answered. Adult diet Regular 24HR INTAKE/OUTPUT: Intake/Output Summary (Last 24 hours) at 09/25/2024 1224 Last data filed at 09/25/2024 1034 Gross per 24 hour Intake 63.33 ml Output -- Net 63.33 ml LABS: CBC: Recent Labs 09/23/24 1048 09/24/24 1352 09/25/24 0049 WBC 11.6* 11.8* 12.0* RBC 3.80 3.61* 3.64* HGB 11.7 11.0* 11.0* HCT 35.5 33.3* 34.6* MCV 93.4 92.2 95.1 RDW 12.9 12.9 12.8 PLT 209 220 246 BMP: Recent Labs 09/23/24 1048 09/24/24 1352 09/25/24 0049 NA 133* 138 138 K 3.9 3.3* 3.5 CL 98 102 103 CO2 28 25 27 BUN 23 11 9 CREATININE 1.14* 0.76 0.65 GLUCOSE 148* 127* 99 CALCIUM 8.6* 8.8 8.9 ANIONGAP 7 11 8 LIVER PROFILE: Recent Labs 09/24/24 1352 AST 31 ALT 10 BILITOT 0.5 ALKPHOS 104 PROT 6.8 PT/INR: Recent Labs 09/23/24 1048 PROTIME 12.9* INR 1.2* CARDIAC ENZYMES: No results for input(s): "TROPONINI" in the last 72 hours. Procalcitonin: Lab Results Component Value Date PROCAL 0.18 (H) 09/23/2024 COVID-19 PCR: No results for input(s): "COVID19" in the last 72 hours. Objective: Vitals: BP 136/64 (BP Location: Right arm, Patient Position: Sitting) Pulse 80 Temp 36.7 ?C (98 ?F) (Temporal) Resp 18 Ht 5' 7" (1.702 m) Wt 180 lb (81.6 kg) SpO2 95% BMI 28.19 kg/m? Pulse Ox: SpO2 Av.5 % Min: 93 % Max: 96 % Supplemental O2: O2 Flow Rate (L/min): 4 L/min Physical Exam Cardiovascular: Rate and Rhythm: Normal rate and regular rhythm. Pulses: Normal pulses. Heart sounds: Normal heart sounds. Pulmonary: Effort: Pulmonary effort is normal. Breath sounds: Normal breath sounds. Abdominal: General: Bowel sounds are normal. Palpations: Abdomen is soft. Medications: Scheduled PRN busPIRone, 10 mg, Oral, TID carBAMazepine, 200 mg, Oral, TID cefTRIAXone, 1,000 mg, IntraVENous, q24h clopidogrel, 75 mg, Oral, Daily enoxaparin, 40 mg, SubCUTAneous, q24h fludrocortisone, 0.1 mg, Oral, Daily folic acid, 1 mg, Oral, Daily guaiFENesin, 600 mg, Oral, BID ipratropium-albuterol, 3 mL, Nebulization, TID levothyroxine, 75 mcg, Oral, qAM AC pantoprazole, 40 mg, Oral, BID pravastatin, 40 mg, Oral, Nightly pregabalin, 150 mg, Oral, BID risperiDONE, 0.5 mg, Oral, BID senna-docusate sodium, 2 tablet, Oral, Daily PRN medications: acetaminophen OR acetaminophen, ondansetron ODT OR ondansetron, polyethylene glycol (PEG) 3350 Continuous Assessment Data: (CAT1) Reviewed 3 or more notes from different specialty or health system (each=1). (LOW: 2x CAT1 or independent historian MOD: 3x CAT1 or 1x CAT3 EXTENSIVE: 3x CAT1 and 1x CAT3) Acute, acute on chronic, unstable/uncontrolled chronic problems/diagnoses: Pneumonia Mechanical fall Polypharmacy Hypokalemia Diarrhea Blood 1/2 with CoNS (likely contaminate) Stable chronic problems affecting care, new non-acute diagnoses: H/o hypothyrodism H/o dvt H/o copd- not in exac HLD Bipolar disorder Seizure disorder Plan As a result of the above findings & factors, the following mgmt was pursued: - continue IV Ceftriaxone for now, change to PO Omnicef upon discharge to complete course at SNF - geriatrics consulted and following, medication recs noted and appreciated - check c.diff and stool PCR - am labs, replace lytes prn - PT/OT/CM/SW - delirium precautions: increase activity - DVT prophylaxis: enoxaparin and encourage ambulation Complexity: Acute illness or injury posing a threat to life or body function (HIGH). Risk: Prescription drug/IVF/colloid was initiated, discontinued, adjusted; or reviewed with decision to maintain current orders (MOD). Advance Directive: Full Code Anticipated Discharge - Date - 09/25/24? - Location - Skilled Facility - Pending the following - insurance auth/precert Total time spent (which include face to face and non face to face encounters) : 35 minutes Extended Emergency Contact Information Primary Emergency Contact: Giana Blanca Mobile Relation: Son Income Tax Preparer needed? No Dennis Davies DO Division of [facility] Medicine Inpatient Medical Services/[facility] 09-25-2024 Note Formatting of this n ote might be different from the original. Attending wanting pt to return SNF LOC if possible, PT recommending SNF. [facility] SN[facility]. Pt is agreeable to this. Per attending, okay to star auth. No PASR needed as pt is a return to same facility. TCC tasked PT and OT to see for updated notes. TCC will follow for notes to start auth. [facility] 09-25-2024 Note Formatting of this n ote might be different from the original. Attending wanting pt to return SNF LOC if possible, PT recommending SNF. [facility] will take pt back SNF LOC. Pt is agreeable to this. Per attending, okay to star auth. No PASR needed as pt is a return to same facility. TCC tasked PT and OT to see for updated notes. TCC will follow for notes to start auth. [facility] 09-24-2024 Plan of care note Problem: Pain - Adult Goal: Verbalizes/displays adequate comfort level or baseline comfort level Outcome: Progressing Problem: Safety - Adult Goal: Free from fall injury Outcome: Progressing Problem: Knowledge Deficit Goal: Patient/family/caregiver demonstrates understanding of disease process, treatment plan, medications, and discharge instructions Outcome: Progressing Problem: Potential for Compromised Skin Integrity Goal: Skin Integrity is Maintained or Improved Outcome: Progressing Goal: Nutritional status is improving Outcome: Progressing Problem: Urinary Incontinence Goal: Perineal skin integrity is maintained or improved Outcome: Progressing [facility] 09-24-2024 Note Hospitalist Progress Note Subjective: Admit Date: 09/23/2024 PCP: Ria Longoria MD Room#: [id number] A Chief Complaint Patient presents with Fall Fall and hit head on floor. c/o R hip pain. Baseline Aox3, per EMS Aox1-2. Takes plavix and has been feeling ill lately. Brief Hospital course: Presented after a fall. Pt had a witnessed mechanical fall at [facility], has a bruise on forehead. Pt reports she has been on oxygen for the past few days with mild cough and sputum production. In ER cxr concerning for pna. Started on IV abx and admitted for further evaluation. Interval History: 09/24/2024-Patient states that she is feeling better. Patient is having loose stools. Case and plan discussed with patient and case management. All questions answered. Adult diet Regular 24HR INTAKE/OUTPUT: Intake/Output Summary (Last 24 hours) at 09/24/2024 1307 Last data filed at 09/23/2024 1842 Gross per 24 hour Intake 550 ml Output -- Net 550 ml LABS: CBC: Recent Labs 09/23/24 1048 WBC 11.6* RBC 3.80 HGB 11.7 HCT 35.5 MCV 93.4 RDW 12.9 PLT 209 BMP: Recent Labs 09/23/24 1048 NA 133* K 3.9 CL 98 CO2 28 BUN 23 CREATININE 1.14* GLUCOSE 148* CALCIUM 8.6* ANIONGAP 7 LIVER PROFILE:No results for input(s): "AST", "ALT", "BILITOT", "ALKPHOS", "PROT" in the last 72 hours. No lab exists for component: LABALBU PT/INR: Recent Labs 09/23/24 1048 PROTIME 12.9* INR 1.2* CARDIAC ENZYMES: No results for input(s): "TROPONINI" in the last 72 hours. Procalcitonin: Lab Results Component Value Date PROCAL 0.18 (H) 09/23/2024 COVID-19 PCR: No results for input(s): "COVID19" in the last 72 hours. Objective: Vitals: BP 117/66 (BP Location: Right arm, Patient Position: Lying) Pulse 82 Temp 36.6 ?C (97.9 ?F) (Temporal) Resp 16 Ht 5' 7" (1.702 m) Wt 180 lb (81.6 kg) SpO2 97% BMI 28.19 kg/m? Pulse Ox: SpO2 Av.9 % Min: 91 % Max: 97 % Supplemental O2: O2 Flow Rate (L/min): 5 L/min Physical Exam Cardiovascular: Rate and Rhythm: Normal rate and regular rhythm. Pulses: Normal pulses. Heart sounds: Normal heart sounds. Pulmonary: Effort: Pulmonary effort is normal. Breath sounds: Normal breath sounds. Abdominal: General: Bowel sounds are normal. Palpations: Abdomen is soft. Medications: Scheduled PRN carBAMazepine, 200 mg, Oral, TID cefTRIAXone, 1,000 mg, IntraVENous, q24h clopidogrel, 75 mg, Oral, Daily enoxaparin, 40 mg, SubCUTAneous, q24h fludrocortisone, 0.1 mg, Oral, Daily folic acid, 1 mg, Oral, Daily guaiFENesin, 600 mg, Oral, BID ipratropium-albuterol, 3 mL, Nebulization, TID levothyroxine, 75 mcg, Oral, qAM AC pantoprazole, 40 mg, Oral, BID pravastatin, 40 mg, Oral, Nightly senna-docusate sodium, 2 tablet, Oral, Daily PRN medications: acetaminophen OR acetaminophen, ondansetron ODT OR ondansetron, polyethylene glycol (PEG) 3350 Continuous Assessment Data: (CAT1) Reviewed 3 or more notes from different specialty or health system (each=1). (LOW: 2x CAT1 or independent historian MOD: 3x CAT1 or 1x CAT3 EXTENSIVE: 3x CAT1 and 1x CAT3) Acute, acute on chronic, unstable/uncontrolled chronic problems/diagnoses: Pneumonia Mechanical fall Polypharmacy Hypokalemia Diarrhea Blood 1/2 with CoNS (likely contaminate) Stable chronic problems affecting care, new non-acute diagnoses: H/o hypothyrodism H/o dvt H/o copd- not in exac HLD Bipolar disorder Plan As a result of the above findings & factors, the following mgmt was pursued: - resp pathogens panel, will DC azithromycin, check sputum for culture, continue IV Ceftriaxone for now - geriatrics consulted and following - check c.diff and stool PCR - am labs, replace lytes prn - PT/OT/CM/SW - delirium precautions: increase activity - DVT prophylaxis: enoxaparin and encourage ambulation Complexity: Acute illness or injury posing a threat to life or body function (HIGH). Risk: Prescription drug/IVF/colloid was initiated, discontinued, adjusted; or reviewed with decision to maintain current orders (MOD). Advance Directive: Full Code Anticipated Discharge - Date - 09/25/24? - Location - Skilled Facility - Pending the following - clinical course Total time spent (which include face to face and non face to face encounters) : 40 minutes Extended Emergency Contact Information Primary Emergency Contact: Giana Blanca Mobile Relation: Son Income Tax Preparer needed? No Dennis Davies DO Division of [facility] Medicine Inpatient Medical Services/[facility] 09-24-2024 Note Hospitalist Progress Note Subjective: Admit Date: 09/23/2024 PCP: Ria Longoria MD Room#: [id number]/[id number] A Chief Complaint Patient presents with Fall Fall and hit head on floor. c/o R hip pain. Baseline Aox3, per EMS Aox1-2. Takes plavix and has been feeling ill lately. Brief Hospital course: Presented after a fall. Pt had a witnessed mechanical fall at [facility], has a bruise on forehead. Pt reports she has been on oxygen for the past few days with mild cough and sputum production. In ER cxr concerning for pna. Started on IV abx and admitted for further evaluation. Interval History: 09/24/2024-Patient states that she is feeling better. Patient is having loose stools. Case and plan discussed with patient and case management. All questions answered. Adult diet Regular 24HR INTAKE/OUTPUT: Intake/Output Summary (Last 24 hours) at 09/24/2024 1307 Last data filed at 09/23/2024 1842 Gross per 24 hour Intake 550 ml Output -- Net 550 ml LABS: CBC: Recent Labs 09/23/24 1048 WBC 11.6* RBC 3.80 HGB 11.7 HCT 35.5 MCV 93.4 RDW 12.9 PLT 209 BMP: Recent Labs 09/23/24 1048 NA 133* K 3.9 CL 98 CO2 28 BUN 23 CREATININE 1.14* GLUCOSE 148* CALCIUM 8.6* ANIONGAP 7 LIVER PROFILE:No results for input(s): "AST", "ALT", "BILITOT", "ALKPHOS", "PROT" in the last 72 hours. No lab exists for component: LABALBU PT/INR: Recent Labs 09/23/24 1048 PROTIME 12.9* INR 1.2* CARDIAC ENZYMES: No results for input(s): "TROPONINI" in the last 72 hours. Procalcitonin: Lab Results Component Value Date PROCAL 0.18 (H) 09/23/2024 COVID-19 PCR: No results for input(s): "COVID19" in the last 72 hours. Objective: Vitals: BP 117/66 (BP Location: Right arm, Patient Position: Lying) Pulse 82 Temp 36.6 ?C (97.9 ?F) (Temporal) Resp 16 Ht 5' 7" (1.702 m) Wt 180 lb (81.6 kg) SpO2 97% BMI 28.19 kg/m? Pulse Ox: SpO2 Av.9 % Min: 91 % Max: 97 % Supplemental O2: O2 Flow Rate (L/min): 5 L/min Physical Exam Cardiovascular: Rate and Rhythm: Normal rate and regular rhythm. Pulses: Normal pulses. Heart sounds: Normal heart sounds. Pulmonary: Effort: Pulmonary effort is normal. Breath sounds: Normal breath sounds. Abdominal: General: Bowel sounds are normal. Palpations: Abdomen is soft. Medications: Scheduled PRN carBAMazepine, 200 mg, Oral, TID cefTRIAXone, 1,000 mg, IntraVENous, q24h clopidogrel, 75 mg, Oral, Daily enoxaparin, 40 mg, SubCUTAneous, q24h fludrocortisone, 0.1 mg, Oral, Daily folic acid, 1 mg, Oral, Daily guaiFENesin, 600 mg, Oral, BID ipratropium-albuterol, 3 mL, Nebulization, TID levothyroxine, 75 mcg, Oral, qAM AC pantoprazole, 40 mg, Oral, BID pravastatin, 40 mg, Oral, Nightly senna-docusate sodium, 2 tablet, Oral, Daily PRN medications: acetaminophen OR acetaminophen, ondansetron ODT OR ondansetron, polyethylene glycol (PEG) 3350 Continuous Assessment Data: (CAT1) Reviewed 3 or more notes from different specialty or health system (each=1). (LOW: 2x CAT1 or independent historian MOD: 3x CAT1 or 1x CAT3 EXTENSIVE: 3x CAT1 and 1x CAT3) Acute, acute on chronic, unstable/uncontrolled chronic problems/diagnoses: Pneumonia Mechanical fall Polypharmacy Hypokalemia Diarrhea Blood 1/2 with CoNS (likely contaminate) Stable chronic problems affecting care, new non-acute diagnoses: H/o hypothyrodism H/o dvt H/o copd- not in exac HLD Bipolar disorder Plan As a result of the above findings & factors, the following mgmt was pursued: - resp pathogens panel, will DC azithromycin, check sputum for culture, continue IV Ceftriaxone for now - geriatrics consulted and following - check c.diff and stool PCR - am labs, replace lytes prn - PT/OT/CM/SW - delirium precautions: increase activity - DVT prophylaxis: enoxaparin and encourage ambulation Complexity: Acute illness or injury posing a threat to life or body function (HIGH). Risk: Prescription drug/IVF/colloid was initiated, discontinued, adjusted; or reviewed with decision to maintain current orders (MOD). Advance Directive: Full Code Anticipated Discharge - Date - 09/25/24? - Location - Skilled Facility - Pending the following - clinical course Total time spent (which include face to face and non face to face encounters) : 40 minutes Extended Emergency Contact Information Primary Emergency Contact: Giana Blanca Mobile Relation: Son Income Tax Preparer needed? No Dennis Davies DO Division of Hospital Medicine Inpatient Medical Services/[facility] 09-24-2024 Note Formatting of this n ote might be different from the original. Referral placed to [facility] per [facility] request. Await review and response regarding ability to accept. TCC notified. [facility] 09-24-2024 Note Formatting of this n ote might be different from the original. Referral placed to [facility] per TCC request. Await review and response regarding ability to accept. TCC notified. Healthcare System 09-24-2024 Note Referral placed to [facility] via [facility] per TCC request. Await review and response regarding ability to accept. TCC notified. [facility] 09-24-2024 Note Referral placed to [facility] via [facility] per TCC request. Await review and response regarding ability to accept. TCC notified. [facility] 09-24-2024 Note Formatting of this n ote might be different from the original. TCC completed chart review. 1 blood culture positive and 1 in process, will follow. PO azithromycin and IV rocephin. 3 L of O2-baseline from facility. Wound care consulted. Geriatrics consulted. PT and OT evals pending. Stool studies ordered, GI and c-diff rule out now. Pt is from [facility]. TCC spoke to pt at bedside, she is agreeable to return. TCC spoke to son Giana via phone call to update of DC plan. TCC tasked HOT SAW OPERATOR to make a LTC return referral. TCC will follow for facility response. Healthcare System 09-24-2024 Note Formatting of this n ote might be different from the original. TCC completed chart review. 1 blood culture positive and 1 in process, will follow. PO azithromycin and IV rocephin. 3 L of O2-baseline from facility. Wound care consulted. Geriatrics consulted. PT and OT evals pending. Stool studies ordered, GI and c-diff rule out now. Pt is from [facility]. TCC spoke to pt at bedside, she is agreeable to return. TCC spoke to son Giana via phone call to update of DC plan. TCC tasked HOT SAW OPERATOR to make a LT return referral. TCC will follow for facility response. Healthcare System 09-24-2024 Note PHYSICAL THERAPY [facility] Initial Evaluation Name/MRN: Andre Blanca ([id number]) Evaluation Date: 09/24/2024 Date of : 1950 Admission Date: 09/23/2024 10:34 AM Age: 74 y.o. Room/Bed: [facility]508/[facility]8 A Discharge Recommendation: Custodial Facility Equipment Needed: No Assessment IMPRESSION: 74 y/o female admitted to [facility] 09/23/2024 s/p fall at ECF. Pt reports she typically ambulates with rollator without assist at [facility]. Required SBA for bed mobility, min assist for transfers, and min assist for ambulation 25ft with FWW this date. Demo dyspnea with all mobility, however O2 sat 97% on 4L O2. Pt reports dyspnea has been present for a few days. Rec SNF level therapies upon return to ECF due to significatn decline from baseline level of function. Admitting Diagnosis: pneumonia due to organsim Prognosis: good Performance Deficits /Impairments: Decreased Functional Mobility, Decreased Strength, Decreased Safety Awareness, Decreased Endurance, and Decreased Balance Decision Making: Low Complexity Subjective Pt resting in bed and agreeable to PT; pleasant and cooperative. RN okayed pt participation with therapy. Pain: Trinidad-Merritt Pain Ratin = Hurts little more Pain Location: R side of back and R hip with mobility Past Medical History: No past medical history on file. Past Surgical History: No past surgical history on file. Admission Diagnosis: Patient Active Problem List Diagnosis Date Noted Pneumonia due to organism 09/23/2024 Pneumonia due to infectious agent 09/23/2024 Medical Precautions: Enhanced Contact Proper PPE donned/doffed in accordance with facility standards. Fall Risk: Marinelli Fall Risk Score: 100 (High Risk) Precautions/Restrictions: Lines/Drains/Airways: 4L O2 via [place] Fall Precautions Family/Caregiver Present: none Overall Cognitive Status: Exceptions - Safety judgement: decreased awareness of need for safety - Insights: decreased awareness of deficits Overall Orientation Status: Oriented to Place and Oriented to Person Vision: Not Assessed Hearing: normal Social/Functional History Patient admitted from SNF. Assistive Equipment: rollator Prior Level of Function Prior Level of ADL Function: Independent Prior Level of Mobility: Independent; Device: Rollator Prior Level of Transfers: Independent Objective Lower Extremity Assessment AROM: WFL PROM: WFL Strength: Exceptions: hip flex 3+/5 bilat, knee ext 4-/5 bilat Sensation: Not assessed this session Balance: Balance During Session: Posture: fair Sitting - Static: Independent Sitting - Dynamic: Supervision Standing - Static: Contact Guard Standing - Dynamic: Min Assist Bed Mobility: Supine to sit: SBA; increased time to complete and use of bed rail Transfers Sit to stand: Min Assist Stand to sit: Min Assist Stand pivot: Min Assist Cues for hand placement, assist to elevate and to gain balance upon initial stance Ambulation Ambulation 1 Assistive device(s) used: Front wheeled walker Assist level: Min Assist Distance (ft): 25 x2 Quality of gait: slow eugenia, decreased step amplitude bilat, decreased upright posture; 2-3 minor LOB requiring assist to correct Exercises Exercises Gluteal Sets: x10 BLEs Hip Flexion: seated alternating marches x10 BLEs Knee Long Arc Quad: x10 BLEs Ankle Pumps: x15 BLEs Comments: cues for proper form; increased time to complete due to dyspnea Outcome Measures AM-PAC How much HELP from another person do you currently need Turning from your back to your side while in a flat bed without using bedrails?: A Little Moving from lying on your back to sitting on the side of a flat bed without using bedrails?: A Little Moving to and from a bed to a chair (including a wheelchair)?: A Little Standing up from a chair using your arms (wheelchair or bedside chair)?: A Little Walking in a hospital room?: A Little Stair climbing assessed?: No (no stairs at ECF) AM-PAC Inpatient Mobility Raw Score (No Stairs) : 15 -[facility] Score: Walked 25 ft or more (i.e. walked outside of room) Plan Pt would benefit from skilled acute PT services to address Strengthening, Gait Training, Balance Training, Functional Mobility Training, Endurance Training, and Safety Education and Training. Frequency: 3x/week for 2 weeks Barriers: Impaired balance, Lower extremity weakness, Decreased endurance, and Limited safety awareness Safety/Education Safety Safety Devices in place: call light within reach, left in chair, chair alarm in place, gait belt, and nurse notified Restraints: No Education Education Given To: patient Education Provided: PT Role, PT Goals, Gait Training, Plan of Care, Transfer Training, Fall Prevention Education, and Benefits of Increasing Activity Education Method: Verbal Barriers to Learning: None Education Outcome: Verbalized Understanding Goals Patient Stated Goal: to return to (more content not included)... [facility] 09-24-2024 Note PHYSICAL THERAPY [facility] Initial Evaluation Name/MRN: Linwood Andre JULIUSChristianne ([id number]) Evaluation Date: 09/24/2024 Date of : 1950 Admission Date: 09/23/2024 10:34 AM Age: 74 y.o. Room/Bed: [facility]508/[facility] A Discharge Recommendation: Custodial Facility Equipment Needed: No Assessment IMPRESSION: 74 y/o female admitted to [facility] 09/23/2024 s/p fall at ECF. Pt reports she typically ambulates with rollator without assist at ECF. Required SBA for bed mobility, min assist for transfers, and min assist for ambulation 25ft with FWW this date. Demo dyspnea with all mobility, however O2 sat 97% on 4L O2. Pt reports dyspnea has been present for a few days. Rec SNF level therapies upon return to ECF due to significatn decline from baseline level of function. Admitting Diagnosis: pneumonia due to organsim Prognosis: good Performance Deficits /Impairments: Decreased Functional Mobility, Decreased Strength, Decreased Safety Awareness, Decreased Endurance, and Decreased Balance Decision Making: Low Complexity Subjective Pt resting in bed and agreeable to PT; pleasant and cooperative. RN okayed pt participation with therapy. Pain: Trinidad-Merritt Pain Ratin = Hurts little more Pain Location: R side of back and R hip with mobility Past Medical History: No past medical history on file. Past Surgical History: No past surgical history on file. Admission Diagnosis: Patient Active Problem List Diagnosis Date Noted Pneumonia due to organism 09/23/2024 Pneumonia due to infectious agent 09/23/2024 Medical Precautions: Enhanced Contact Proper PPE donned/doffed in accordance with facility standards. Fall Risk: Marinelli Fall Risk Score: 100 (High Risk) Precautions/Restrictions: Lines/Drains/Airways: 4L O2 via NC Fall Precautions Family/Caregiver Present: none Overall Cognitive Status: Exceptions - Safety judgement: decreased awareness of need for safety - Insights: decreased awareness of deficits Overall Orientation Status: Oriented to Place and Oriented to Person Vision: Not Assessed Hearing: normal Social/Functional History Patient admitted from SNF. Assistive Equipment: rollator Prior Level of Function Prior Level of ADL Function: Independent Prior Level of Mobility: Independent; Device: Rollator Prior Level of Transfers: Independent Objective Lower Extremity Assessment AROM: WFL PROM: WFL Strength: Exceptions: hip flex 3+/5 bilat, knee ext 4-/5 bilat Sensation: Not assessed this session Balance: Balance During Session: Posture: fair Sitting - Static: Independent Sitting - Dynamic: Supervision Standing - Static: Contact Guard Standing - Dynamic: Min Assist Bed Mobility: Supine to sit: SBA; increased time to complete and use of bed rail Transfers Sit to stand: Min Assist Stand to sit: Min Assist Stand pivot: Min Assist Cues for hand placement, assist to elevate and to gain balance upon initial stance Ambulation Ambulation 1 Assistive device(s) used: Front wheeled walker Assist level: Min Assist Distance (ft): 25 x2 Quality of gait: slow eugenia, decreased step amplitude bilat, decreased upright posture; 2-3 minor LOB requiring assist to correct Exercises Exercises Gluteal Sets: x10 BLEs Hip Flexion: seated alternating marches x10 BLEs Knee Long Arc Quad: x10 BLEs Ankle Pumps: x15 BLEs Comments: cues for proper form; increased time to complete due to dyspnea Outcome Measures AM-PAC How much HELP from another person do you currently need Turning from your back to your side while in a flat bed without using bedrails?: A Little Moving from lying on your back to sitting on the side of a flat bed without using bedrails?: A Little Moving to and from a bed to a chair (including a wheelchair)?: A Little Standing up from a chair using your arms (wheelchair or bedside chair)?: A Little Walking in a hospital room?: A Little Stair climbing assessed?: No (no stairs at ECF) AM-PAC Inpatient Mobility Raw Score (No Stairs) : 15 [facility] Score: Walked 25 ft or more (i.e. walked outside of room) Plan Pt would benefit from skilled acute PT services to address Strengthening, Gait Training, Balance Training, Functional Mobility Training, Endurance Training, and Safety Education and Training. Frequency: 3x/week for 2 weeks Barriers: Impaired balance, Lower extremity weakness, Decreased endurance, and Limited safety awareness Safety/Education Safety Safety Devices in place: call light within reach, left in chair, chair alarm in place, gait belt, and nurse notified Restraints: No Education Education Given To: patient Education Provided: PT Role, PT Goals, Gait Training, Plan of Care, Transfer Training, Fall Prevention Education, and Benefits of Increasing Activity Education Method: Verbal Barriers to Learning: None Education Outcome: Verbalized Understanding Goals Patient Stated Goal: to return to (more content not included)... [facility] 09-24-2024 Consult note Associated Order (s): IP CONSULT TO GERIATRICS [facility] Geriatric Medicine Inpatient Consult Service Admission Date:09/23/2024 Admission Status: INPATIENT Chief Complaint: Fall Reason for Appointment Geriatrics consulted for Fall Assessment Principal Problem: Pneumonia due to organism Active Problems: Pneumonia due to infectious agent Plan Fall - mechanical fall - risk factors include: acute illness, significant polypharmacy (see recs below) - Vitamin D level pending - Check Carbamazepine level as below - check orthostatic vital signs - PT/OT as able - PT currently recommending SNF Bipolar disorder - per facility is followed by in house psych team at [facility] - see medication recommendations as below, significant polypharmacy- on several psych medications - recommend consultation to psychiatry for further recommendations to reduce current medication burden as able Hypothyroidism - agree with check of TSH - per facility her TENTER dose of Levothyroxine is 88mcg, currently ordered 75mcg, please adjust dose if appropriate- defer management to primary team Polypharmacy - I personally called and spoke with nurse Boyce at [facility] to review medications- reported to be taking the following medications: - Buspar 10mg TID- order placed to restart this medication - Tegretol 200mg TID- ordered here, continue- consider tegretol level in setting of fall - Levothyroxine 88mcg daily- change dosage if appropriate as above - Tramadol 100mg q8hrs PRN Pain- per nursing staff consistently takes 100mg nightly at facility- can continue off for now, monitor for pain - Seroquel 25mg BID- recommend restarting while inpatient in setting of Bipolar disorder as above, defer to Psych - Risperdal 0.5mg BID- recommend restarting while inpatient in setting of Bipolar disorder as above, defer to Psych - Tizanidine 2mg BID- unclear indication for this, would recommend attempts at gradual dose reduction vs changing to PRN - Pregabalin 150mg BID- will restart while here to prevent possible withdrawal - Vistaril 25mg BID- OK to continue to hold at this time, 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 alternative exterminator helper termite- due to anticholinergic effects may further contribute to her fall risk - Omeprazole 40mg BID- currently on pantoprazole here - Pravastatin- has been restarted here - Plavix 75mg daily- has been restarted here - Folic Acid 1mg daily- has been restarted here - takes potassium supplementation at facility- assess for need for restarting/continuation while here - Venlafaxine 37,5mg daily- assess for appropriateness of restarting her, defer to psych - Melatonin 10mg nightly- consider adding melatonin PRN for sleep - Will ask our geriatric pharmacist to further review medications for recommendations, as above would also recommend the involvement of psychiatry for further recommendations. Follow-up: 1-2 days as needed Subjective: HPI 74 y.o. year-old female with past medical history of Bipolar disorder, hypothyroidism presented from facility for fall. Per review of H&P- patient had a witnessed mechanical fall. patient has reportedly been on oxygen for the past few days with cough and sputum production. In the ED, CXR was concerning for PNA. Started on Ceftriaxone, Resp culture pending, negative for influenza, RSV. Creat 1.14 on admission, sodium 133. Lactic acid normal, CBC with slight leukocytosis at 11.6 Patient refusing blood tests this morning per review of nursing notes. Patient reports that she is feeling more anxious at this time, she reports that she knows that she is here for a fall- states she was sitting next to a friend on the couch and fell forward, reports she knows she is being treated for pneumonia- reports coughing, no pain at this time, having some nausea that is impacting appetite- reports she did not eat much breakfast [facility] patient with anxiety, medication review as above, patient follows with an in house psychiatric orderly Allergies Allergen Reactions Aspirin Butorphanol Hydromorphone Ibuprofen Oxycodone Prochlorperazine Salicylamide Sulfa Antibiotics Sumatriptan Current Facility-Administered Medications: acetaminophen (Tylenol) tablet 650 mg, 650 mg, Oral, q6h PRN, 650 mg at 09/24/24 0555 OR acetaminophen (Tylenol) suppository 650 mg, 650 mg, Rectal, q6h PRN, Lashon Sullivan MD busPIRone (Buspar) tablet 10 mg, 10 mg, Oral, TID, Shweta Carson, MANAGER PROJECT - GENERAL LABOR FORKLIFT OPERATOR carBAMazepine (TEGretol) tablet 200 mg, 200 mg, Oral, TID, Lashon Sullivan MD, 200 mg at 09/24/24 08 cefTRIAXone (Rocephin) 1,000 mg in sodium chloride 0.9 % 50 mL IVPB Mini-Bag Plus, 1,000 mg, IntraVENous, q24h, Lashon Sullivan MD, Stopped at 09/24/24 1149 clopidogrel (Plavix) tablet 75 mg, 75 mg, Oral, Daily, Lashon Sullivan MD, 75 mg at 09/24/24 0825 enoxaparin (Lovenox) syringe 40 mg, 40 mg, SubCUTAneous, q24h, Lashon Sullivan MD, 40 mg at 09/23/24 1737 fludrocortisone (Florinef) tablet 0.1 mg, 0.1 mg, Oral, Daily, Lashon Sullivan MD, 0.1 mg at 09/24/24 08 folic acid (Folvite) tablet 1 mg, 1 mg, Oral, Daily, Lashon Sullivan MD, 1 mg at 09/24/24 08 guaiFENesin (Mucinex) 12 hr tablet 600 mg, 600 mg, Oral, BID, Lashon Sullivan MD, 600 mg at 09/24/24 0825 ipratropium-albuterol (Duo-Neb) 0.5-2.5 mg/3 mL nebulizer solution 3 mL, 3 mL, Nebulization, TID, Lashon Sullivan MD, 3 mL at 09/24/24 1222 levothyroxine (Synthroid, Levoxyl) tablet 75 mcg, 75 mcg, Oral, qAM AC, Lashon Sullivan MD, 75 mcg at 09/24/24 0555 ondansetron ODT (Zofran-ODT) disintegrating tablet 4 mg, 4 mg, Oral, q8h PRN OR ondansetron (Zofran) injection 4 mg, 4 mg, IntraVENous, q6h PRN, Lashon Sullivan MD pantoprazole (ProtoNix) EC tablet 40 mg, 40 mg, Oral, BID, Lashon Sullivan MD, 40 mg at 09/24/24 0555 polyethylene glycol (PEG) 3350 (Miralax) packet 17 g, 17 g, Oral, Daily PRN, Lashon Sullivan MD pravastatin (Pravachol) tablet 40 mg, 40 mg, Oral, Nightly, Lashon Sullivan MD, 40 mg at 09/23/240 pregabalin (Lyrica) capsule 150 mg, 150 mg, Oral, BID, Shweta Carson, MANAGER PROJECT - GENERAL LABOR FORKLIFT OPERATOR senna-docusate sodium (Senokot-S) 8.6-50 MG tablet 2 tablet, 2 tablet, Oral, Daily, Lashon Sullivan MD No past medical history on file. No past surgical history on file. Social History Social History Tobacco Use Smoking status: Not on file Smokeless tobacco: Not on file Substance Use Topics Alcohol use: Not on file Social History Social History Narrative Not on file Patient Currently Lives: at [facility] Level of Family Support: son Community Resources: from facility Family History No family history on file. No family status information on file. Unable to obtain family history, due to: as above Review of Systems Constitutional: Positive for appetite change. Negative for activity change. Respiratory: Positive for cough. Cardiovascular: Negative for chest pain. Gastrointestinal: Positive for nausea. Negative for constipation. Musculoskeletal: Negative for arthralgias and gait problem. Neurological: Negative for dizziness and headaches. Psychiatric/Behavioral: Negative for confusion. The patient is nervous/anxious. Objective: BP 117/66 (BP Location: Right arm, Patient Position: Lying) Pulse 82 Temp 36.6 C (97.9 F) (Temporal) Resp 16 Ht 5' 7" (1.702 m) Wt 180 lb (81.6 kg) SpO2 91% BMI 28.19 kg/m Intake/Output Summary (Last 24 hours) at 09/24/2024 1008 Last data filed at 09/23/2024 1842 Gross per 24 hour Intake 550 ml Output -- Net 550 ml Wt Readings from Last 4 Encounters: 09/23/24 180 lb (81.6 kg) Physical Exam Constitutional: General: She is not in acute distress. Comments: Sitting up in bedside chair, cooperative with exam HENT: Right Ear: External ear normal. Left Ear: External ear normal. Mouth/Throat: Mouth: Mucous membranes are moist. Pharynx: Oropharynx is clear. Eyes: General: Right eye: No discharge. Left eye: No discharge. Conjunctiva/sclera: Conjunctivae normal. Cardiovascular: Rate and Rhythm: Normal rate. Pulmonary: Effort: Pulmonary effort is normal. No respiratory distress. Comments: O2 in place via NC Abdominal: General: Bowel sounds are normal. There is no distension. Palpations: Abdomen is soft. Tenderness: There is no abdominal tenderness. There is no guarding. Musculoskeletal: Right lower leg: No edema. Left lower leg: No edema. Skin: General: Skin is warm. Neurological: Mental Status: She is alert. She is disoriented. Comments: Alert and oriented to self and place, not date Follows commands Psychiatric: Attention and Perception: Attention normal. Mood and Affect: Mood is anxious. Behavior: Behavior is not agitated or aggressive. Behavior is cooperative. Mini-Mental Status Exam: not performed in setting of acute illness Labs and Imaging: Recent Results (from the past 24 hours) Type and Screen Collection Time: 09/23/24 10:48 AM Result Value Ref Range ABO Grouping O Antibody Screen NEG Rh Type POS CBC auto differential Collection Time: 09/23/24 10:48 AM Result Value Ref Range Auto WBC 11.6 (H) 3.6 - 10.7 10*3/uL RBC 3.80 3.80 - 5.20 10*6/uL Hemoglobin 11.7 11.7 - 16.0 g/dL Hematocrit 35.5 35.0 - 47.0 % MCV 93.4 77.0 - 99.0 fL MCH 30.8 26.0 - 34.0 pg MCHC 33.0 30.5 - 36.0 % RDW 12.9 11.5 - 15.0 % Platelets 209 140 - 440 10*3/uL MPV 10.6 9.0 - 12.7 fL nRBC 0.0 0.0 - 2.0 /100 WBCs Neutrophils Relative 82.2 (H) 38.0 - 82.0 % Lymphocytes Relative 6.0 (L) 15.0 - 45.0 % Monocytes Relative 10.3 5.0 - 13.0 % Eosinophils Relative 0.6 0.0 - 6.0 % Basophils Relative 0.4 0.0 - 2.0 % Immature Grans % 0.5 0.0 - 2.0 % Neutrophils Absolute 9.5 (H) 1.8 - 7.5 10*3/uL Lymphocytes Absolute 0.7 (L) 1.0 - 4.3 10*3/uL Monocytes Absolute 1.2 (H) 0.0 - 0.9 10*3/uL Eosinophils Absolute 0.1 0.0 - 0.5 10*3/uL Basophils Absolute 0.1 0.0 - 0.2 10*3/uL Immature Grans Absolute 0.1 (H) <0.1 10*3/uL Lactic acid with reflex Collection Time: 09/23/24 10:48 AM Result Value Ref Range LACTIC ACID 1.3 0.5 - 2.2 mmol/L Magnesium Collection Time: 09/23/24 10:48 AM Result Value Ref Range MAGNESIUM 1.5 (L) 1.6 - 2.6 mg/dL Phosphorus Collection Time: 09/23/24 10:48 AM Result Value Ref Range PHOSPHORUS 2.5 2.3 - 4.7 mg/dL PROTIME/INR & PTT Collection Time: 09/23/24 10:48 AM Result Value Ref Range PROTHROMBIN TIME 12.9 (H) 9.0 - 12.0 s INR 1.2 (H) 0.9 - 1.1 APTT 29.8 20.0 - 30.5 s Ethanol Collection Time: 09/23/24 10:48 AM Result Value Ref Range ETHANOL IN SER/PLAS <10 <10 mg/dL Basic metabolic panel Collection Time: 09/23/24 10:48 AM Result Value Ref Range SODIUM 133 (L) 136 - 145 mmol/L POTASSIUM 3.9 3.5 - 5.1 mmol/L CHLORIDE 98 98 - 107 mmol/L CARBON DIOXIDE 28 23 - 31 mmol/L UREA NITROGEN 23 9 - 23 mg/dL CREATININE 1.14 (H) 0.57 - 1.11 mg/dL GLUCOSE 148 (H) 82 - 115 mg/dL CALCIUM 8.6 (L) 8.8 - 10.0 mg/dL ANION GAP 7 3 - 13 mmol/L eGFR 50.3 (L) >60.0 mL/min/1.73m*2 Confirmatory ABO/Rh Collection Time: 09/23/24 10:48 AM Result Value Ref Range ABO Grouping O Rh Type POS Procalcitonin Test Collection Time: 09/23/24 10:48 AM Result Value Ref Range PROCALCITONIN 0.18 (H) <0.07 ng/mL SARS-CoV-2, Flu A/B, and RSV Combo Collection Time: 09/23/24 10:51 AM Specimen: Nasopharynx; Swab Result Value Ref Range SARS-CoV-2 Not Detected Not Detected Respiratory Syncytial Virus Not Detected Not Detected Influenza A Not Detected Not Detected Influenza B Not Detected Not Detected Blood culture Site #1 - Suspected Infection Collection Time: 09/23/24 11:06 AM Specimen: Blood, Venous Result Value Ref Range Blood Culture Blood culture incubation started Blood culture Site #2 - Suspected Infection Collection Time: 09/23/24 12:01 PM Specimen: Blood, Venous Result Value Ref Range Blood Culture Gram-positive cocci (AA) Blood Culture Identification - Aerobic Collection Time: 09/23/24 12:01 PM Specimen: Blood, Venous Result Value Ref Range Staphylococcus epidermidis Detected (A) Not Detected mecA/C (MRSE/MRSL) Detected (A) Not Detected Legionella and Streptococcus Urine Antigen Collection Time: 09/23/24 5:45 PM Specimen: Urine, Clean Catch Result Value Ref Range Legionella pneumophila Ag Not Detected Not Detected Streptococcus pneumoniae Ag Not Detected Not Detected No results found for: "TSH" No components found for: "B12" No results found for: "VITD25" Reviewed: active problem list, medication list, allergies, notes from last encounter, lab results, imaging [facility] 09-24-2024 Consult note Associated Order (s): IP CONSULT TO GERIATRICS [facility] Geriatric Medicine Inpatient Consult Service Admission Date:09/23/2024 Admission Status: INPATIENT Chief Complaint: Fall Reason for Appointment Geriatrics consulted for Fall Assessment Principal Problem: Pneumonia due to organism Active Problems: Pneumonia due to infectious agent Plan Fall - mechanical fall - risk factors include: acute illness, significant polypharmacy (see recs below) - Vitamin D level pending - Check Carbamazepine level as below - check orthostatic vital signs - PT/OT as able - PT currently recommending SNF Bipolar disorder - per facility is followed by in house psych team at [facility] - see medication recommendations as below, significant polypharmacy- on several psych medications - recommend consultation to psychiatry for further recommendations to reduce current medication burden as able Hypothyroidism - agree with check of TSH - per facility her TENTER dose of Levothyroxine is 88mcg, currently ordered 75mcg, please adjust dose if appropriate- defer management to primary team Polypharmacy - I personally called and spoke with nurse Boyce at [facility] to review medications- reported to be taking the following medications: - Buspar 10mg TID- order placed to restart this medication - Tegretol 200mg TID- ordered here, continue- consider tegretol level in setting of fall - Levothyroxine 88mcg daily- change dosage if appropriate as above - Tramadol 100mg q8hrs PRN Pain- per nursing staff consistently takes 100mg nightly at facility- can continue off for now, monitor for pain - Seroquel 25mg BID- recommend restarting while inpatient in setting of Bipolar disorder as above, defer to Psych - Risperdal 0.5mg BID- recommend restarting while inpatient in setting of Bipolar disorder as above, defer to Psych - Tizanidine 2mg BID- unclear indication for this, would recommend attempts at gradual dose reduction vs changing to PRN - Pregabalin 150mg BID- will restart while here to prevent possible withdrawal - Vistaril 25mg BID- OK to continue to hold at this time, 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 alternative mcfp- due to anticholinergic effects may further contribute to her fall risk - Omeprazole 40mg BID- currently on pantoprazole here - Pravastatin- has been restarted here - Plavix 75mg daily- has been restarted here - Folic Acid 1mg daily- has been restarted here - takes potassium supplementation at facility- assess for need for restarting/continuation while here - Venlafaxine 37,5mg daily- assess for appropriateness of restarting her, defer to psych - Melatonin 10mg nightly- consider adding melatonin PRN for sleep - Will ask our geriatric pharmacist to further review medications for recommendations, as above would also recommend the involvement of psychiatry for further recommendations. Follow-up: 1-2 days as needed Subjective: HPI 74 y.o. year-old female with past medical history of Bipolar disorder, hypothyroidism presented from facility for fall. Per review of H&P- patient had a witnessed mechanical fall. patient has reportedly been on oxygen for the past few days with cough and sputum production. In the ED, CXR was concerning for PNA. Started on Ceftriaxone, Resp culture pending, negative for influenza, RSV. Creat 1.14 on admission, sodium 133. Lactic acid normal, CBC with slight leukocytosis at 11.6 Patient refusing blood tests this morning per review of nursing notes. Patient reports that she is feeling more anxious at this time, she reports that she knows that she is here for a fall- states she was sitting next to a friend on the couch and fell forward, reports she knows she is being treated for pneumonia- reports coughing, no pain at this time, having some nausea that is impacting appetite- reports she did not eat much breakfast Spoke with nurseCarli at [facility], [facility] patient with anxiety, medication review as above, patient follows with an in house psychiatric orderly Allergies Allergen Reactions Aspirin Butorphanol Hydromorphone Ibuprofen Oxycodone Prochlorperazine Salicylamide Sulfa Antibiotics Sumatriptan Current Facility-Administered Medications: acetaminophen (Tylenol) tablet 650 mg, 650 mg, Oral, q6h PRN, 650 mg at 09/24/24 0555 OR acetaminophen (Tylenol) suppository 650 mg, 650 mg, Rectal, q6h PRN, Lashon Sullivan, MD busPIRone (Buspar) tablet 10 mg, 10 mg, Oral, TID, Shweta Carson APRN - JOSÉ carBAMazepine (TEGretol) tablet 200 mg, 200 mg, Oral, TID, Lashon Sullivan MD, 200 mg at 09/24/24 0826 cefTRIAXone (Rocephin) 1,000 mg in sodium chloride 0.9 % 50 mL IVPB Mini-Bag Plus, 1,000 mg, IntraVENous, q24h, Lashon Sullivan MD, Stopped at 09/24/24 1149 clopidogrel (Plavix) tablet 75 mg, 75 mg, Oral, Daily, Lashon Sullivan MD, 75 mg at 09/24/24 0825 enoxaparin (Lovenox) syringe 40 mg, 40 mg, SubCUTAneous, q24h, Lashon Sullivan MD, 40 mg at 09/23/24 1737 fludrocortisone (Florinef) tablet 0.1 mg, 0.1 mg, Oral, Daily, Lashon Sullivan MD, 0.1 mg at 09/24/24 0826 folic acid (Folvite) tablet 1 mg, 1 mg, Oral, Daily, Lashon Sullivan MD, 1 mg at 09/24/24 0825 guaiFENesin (Mucinex) 12 hr tablet 600 mg, 600 mg, Oral, BID, Lashon Sullivan MD, 600 mg at 09/24/24 0825 ipratropium-albuterol (Duo-Neb) 0.5-2.5 mg/3 mL nebulizer solution 3 mL, 3 mL, Nebulization, TID, Lashon Sullivan MD, 3 mL at 09/24/24 1222 levothyroxine (Synthroid, Levoxyl) tablet 75 mcg, 75 mcg, Oral, qAM AC, Lashon Sullivan MD, 75 mcg at 09/24/24 0555 ondansetron ODT (Zofran-ODT) disintegrating tablet 4 mg, 4 mg, Oral, q8h PRN OR ondansetron (Zofran) injection 4 mg, 4 mg, IntraVENous, q6h PRN, Lashon Sullivan MD pantoprazole (ProtoNix) EC tablet 40 mg, 40 mg, Oral, BID, Lashon Sullivan MD, 40 mg at 09/24/24 0555 polyethylene glycol (PEG) 3350 (Miralax) packet 17 g, 17 g, Oral, Daily PRN, Lashon Sullivan MD pravastatin (Pravachol) tablet 40 mg, 40 mg, Oral, Nightly, Lashon Sullivan MD, 40 mg at 09/23/242039 pregabalin (Lyrica) capsule 150 mg, 150 mg, Oral, BID, Shweta Carson, MANAGER PROJECT - GENERAL [employer]OR [employer]KL[employer] OPERATOR senna-docusate sodium (Senokot-S) 8.6-50 MG tablet 2 tablet, 2 tablet, Oral, Daily, Lashon Sullivan MD No past medical history on file. No past surgical history on file. Social History Social History Tobacco Use Smoking status: Not on file Smokeless tobacco: Not on file Substance Use Topics Alcohol use: Not on file Social History Social History Narrative Not on file Patient Currently Lives: at [facility] Level of Family Support: son Community Resources: from facility Family History No family history on file. No family status information on file. Unable to obtain family history, due to: as above Review of Systems Constitutional: Positive for appetite change. Negative for activity change. Respiratory: Positive for cough. Cardiovascular: Negative for chest pain. Gastrointestinal: Positive for nausea. Negative for constipation. Musculoskeletal: Negative for arthralgias and gait problem. Neurological: Negative for dizziness and headaches. Psychiatric/Behavioral: Negative for confusion. The patient is nervous/anxious. Objective: BP 117/66 (BP Location: Right arm, Patient Position: Lying) Pulse 82 Temp 36.6 C (97.9 F) (Temporal) Resp 16 Ht 5' 7" (1.702 m) Wt 180 lb (81.6 kg) SpO2 91% BMI 28.19 kg/m Intake/Output Summary (Last 24 hours) at 09/24/2024 1008 Last data filed at 09/23/2024 1842 Gross per 24 hour Intake 550 ml Output -- Net 550 ml Wt Readings from Last 4 Encounters: 09/23/24 180 lb (81.6 kg) Physical Exam Constitutional: General: She is not in acute distress. Comments: Sitting up in bedside chair, cooperative with exam HENT: Right Ear: External ear normal. Left Ear: External ear normal. Mouth/Throat: Mouth: Mucous membranes are moist. Pharynx: Oropharynx is clear. Eyes: General: Right eye: No discharge. Left eye: No discharge. Conjunctiva/sclera: Conjunctivae normal. Cardiovascular: Rate and Rhythm: Normal rate. Pulmonary: Effort: Pulmonary effort is normal. No respiratory distress. Comments: O2 in place via NC Abdominal: General: Bowel sounds are normal. There is no distension. Palpations: Abdomen is soft. Tenderness: There is no abdominal tenderness. There is no guarding. Musculoskeletal: Right lower leg: No edema. Left lower leg: No edema. Skin: General: Skin is warm. Neurological: Mental Status: She is alert. She is disoriented. Comments: Alert and oriented to self and place, not date Follows commands Psychiatric: Attention and Perception: Attention normal. Mood and Affect: Mood is anxious. Behavior: Behavior is not agitated or aggressive. Behavior is cooperative. Mini-Mental Status Exam: not performed in setting of acute illness Labs and Imaging: Recent Results (from the past 24 hours) Type and Screen Collection Time: 09/23/24 10:48 AM Result Value Ref Range ABO Grouping O Antibody Screen NEG Rh Type POS CBC auto differential Collection Time: 09/23/24 10:48 AM Result Value Ref Range Auto WBC 11.6 (H) 3.6 - 10.7 10*3/uL RBC 3.80 3.80 - 5.20 10*6/uL Hemoglobin 11.7 11.7 - 16.0 g/dL Hematocrit 35.5 35.0 - 47.0 % MCV 93.4 77.0 - 99.0 fL MCH 30.8 26.0 - 34.0 pg MCHC 33.0 30.5 - 36.0 % RDW 12.9 11.5 - 15.0 % Platelets 209 140 - 440 10*3/uL MPV 10.6 9.0 - 12.7 fL nRBC 0.0 0.0 - 2.0 /100 WBCs Neutrophils Relative 82.2 (H) 38.0 - 82.0 % Lymphocytes Relative 6.0 (L) 15.0 - 45.0 % Monocytes Relative 10.3 5.0 - 13.0 % Eosinophils Relative 0.6 0.0 - 6.0 % Basophils Relative 0.4 0.0 - 2.0 % Immature Grans % 0.5 0.0 - 2.0 % Neutrophils Absolute 9.5 (H) 1.8 - 7.5 10*3/uL Lymphocytes Absolute 0.7 (L) 1.0 - 4.3 10*3/uL Monocytes Absolute 1.2 (H) 0.0 - 0.9 10*3/uL Eosinophils Absolute 0.1 0.0 - 0.5 10*3/uL Basophils Absolute 0.1 0.0 - 0.2 10*3/uL Immature Grans Absolute 0.1 (H) <0.1 10*3/uL Lactic acid with reflex Collection Time: 09/23/24 10:48 AM Result Value Ref Range LACTIC ACID 1.3 0.5 - 2.2 mmol/L Magnesium Collection Time: 09/23/24 10:48 AM Result Value Ref Range MAGNESIUM 1.5 (L) 1.6 - 2.6 mg/dL Phosphorus Collection Time: 09/23/24 10:48 AM Result Value Ref Range PHOSPHORUS 2.5 2.3 - 4.7 mg/dL PROTIME/INR & PTT Collection Time: 09/23/24 10:48 AM Result Value Ref Range PROTHROMBIN TIME 12.9 (H) 9.0 - 12.0 s INR 1.2 (H) 0.9 - 1.1 APTT 29.8 20.0 - 30.5 s Ethanol Collection Time: 09/23/24 10:48 AM Result Value Ref Range ETHANOL IN SER/PLAS <10 <10 mg/dL Basic metabolic panel Collection Time: 09/23/24 10:48 AM Result Value Ref Range SODIUM 133 (L) 136 - 145 mmol/L POTASSIUM 3.9 3.5 - 5.1 mmol/L CHLORIDE 98 98 - 107 mmol/L CARBON DIOXIDE 28 23 - 31 mmol/L UREA NITROGEN 23 9 - 23 mg/dL CREATININE 1.14 (H) 0.57 - 1.11 mg/dL GLUCOSE 148 (H) 82 - 115 mg/dL CALCIUM 8.6 (L) 8.8 - 10.0 mg/dL ANION GAP 7 3 - 13 mmol/L eGFR 50.3 (L) >60.0 mL/min/1.73m*2 Confirmatory ABO/Rh Collection Time: 09/23/24 10:48 AM Result Value Ref Range ABO Grouping O Rh Type POS Procalcitonin Test Collection Time: 09/23/24 10:48 AM Result Value Ref Range PROCALCITONIN 0.18 (H) <0.07 ng/mL SARS-CoV-2, Flu A/B, and RSV Combo Collection Time: 09/23/24 10:51 AM Specimen: Nasopharynx; Swab Result Value Ref Range SARS-CoV-2 Not Detected Not Detected Respiratory Syncytial Virus Not Detected Not Detected Influenza A Not Detected Not Detected Influenza B Not Detected Not Detected Blood culture Site #1 - Suspected Infection Collection Time: 09/23/24 11:06 AM Specimen: Blood, Venous Result Value Ref Range Blood Culture Blood culture incubation started Blood culture Site #2 - Suspected Infection Collection Time: 09/23/24 12:01 PM Specimen: Blood, Venous Result Value Ref Range Blood Culture Gram-positive cocci (AA) Blood Culture Identification - Aerobic Collection Time: 09/23/24 12:01 PM Specimen: Blood, Venous Result Value Ref Range Staphylococcus epidermidis Detected (A) Not Detected mecA/C (MRSE/MRSL) Detected (A) Not Detected Legionella and Streptococcus Urine Antigen Collection Time: 09/23/24 5:45 PM Specimen: Urine, Clean Catch Result Value Ref Range Legionella pneumophila Ag Not Detected Not Detected Streptococcus pneumoniae Ag Not Detected Not Detected No results found for: "TSH" No components found for: "B12" No results found for: "VITD25" Reviewed: active problem list, medication list, allergies, notes from last encounter, lab results, imaging documented in this encounter [facility] 09-24-2024 Nurse Note Wound Care consulted for Pressure Injury Prevention. Pt's Rakan score= 18 on 09/24 Pt's pressure points assessed. Pt's Heels, Buttocks/coccyx, Back, Elbows, Occiput and ears all intact. MASD noted to gluteal cleft. Prevention Measures in place, including: [place] sheet with pillows/wedges, Foam heel protectors (obtained and applied), Heels elevated off bed on pillows, Zinc/Moisture Barrier ointment, Waffle chair cushion (obtained for pt). Skin Care precaution order set in place. Dietitian consult N/A, nutrition subscore of 3. PT/OT consult in place. Will continue to follow pt. Please Voicera for any questions or concerns. Damari Wharotn RN [facility] [employer] 09-24-2024 Plan of care note Problem: Pain - Adult Goal: Verbalizes/displays adequate comfort level or baseline comfort level Outcome: Progressing Problem: Safety - Adult Goal: Free from fall injury Outcome: Progressing Problem: Knowledge Deficit Goal: Patient/family/caregiver demonstrates understanding of disease process, treatment plan, medications, and discharge instructions Outcome: Progressing [facility] [employer] 09-24-2024 Nurse Note Pt's blood work attempted x2 this morning. Pt refusing anymore attempts at this time. [facility] [employer] 09-23-2024 Nurse Note Pt took 3 yellow colored rings off. This RN found them on the floor next to her bed. Placed in specimen cup with pt label on pt's bedside table. [facility] [employer] 09-23-2024 History and physical note Attending History and Physical Admit Date: 09/23/2024 PCP: Ria Longoria MD CHIEF COMPLAINT: FALL Reason for Admission: History Obtained From: pt and ER physician HISTORY OF PRESENT ILLNESS: IVAN is a 74 y.o. female with past medical history below who presents with chief complaint listed above. Pt had a witnessed mechanical fall at [facility], has a bruise on forehead. Pt reports she has been on oxygen for the past few days with mild cough and sputum production. In ER cxr concerning for pna. Will admit for further evaluation and management. Past Medical History: No past medical history on file. Past Surgical History: No past surgical history on file. Social History: Social History Socioeconomic History Marital status: Spouse name: Not on file Number of children: Not on file Years of education: Not on file Highest education level: Not on file Occupational History Not on file Tobacco Use Smoking status: Not on file Smokeless tobacco: Not on file Substance and Sexual Activity Alcohol use: Not on file Drug use: Not on file Sexual activity: Not on file Other Topics Concern Not on file Social History Narrative Not on file Social Drivers of Health Financial Resource Strain: Not on file Food Insecurity: Not on file Transportation Needs: Not on file Physical Activity: Not on file Stress: Not on file Social Connections: Not on file Intimate Partner Violence: Not on file Housing Stability: Not on file Family History: No family history on file. Medications Prior to Admission: (Not in a hospital admission) Allergies: Allergies Allergen Reactions Aspirin Butorphanol Hydromorphone Ibuprofen Oxycodone Prochlorperazine Salicylamide Sulfa Antibiotics Sumatriptan REVIEW OF SYSTEMS: 10 point review of systems done and all are neg except above Vitals: BP 105/62 Pulse 64 Temp 37 C (98.6 F) Resp 18 Ht 5' 7" (1.702 m) Wt 180 lb (81.6 kg) SpO2 95% BMI 28.19 kg/m BMI Classification: Pulse Ox: SpO2 Av.9 % Min: 88 % Max: 98 % Supplemental O2: O2 Flow Rate (L/min): 3 L/min PHYSICAL EXAM: General appearance: No apparent distress, appears stated age and cooperative with exam. HEENT: Normal cephalic, atraumatic without obvious deformity. Pupils equal, round, and reactive to light. Extra ocular muscles intact. Conjunctivae/corneas clear. Neck: Supple, with full range of motion. No jugular venous distention. Trachea midline. No lymphadenopathy. Respiratory: mild wheezing pos bilaterally Cardiovascular: Regular rate and rhythm with normal S1/S2 without murmurs, rubs or gallops. Abdomen: Soft, non-tender, non-distended with normal bowel sounds. No rebound or guarding. Musculoskeletal: No clubbing, cyanosis or edema bilaterally. Full range of motion without deformity, +2 peripheral pulses in all extremities. Skin: Skin color, texture, turgor normal. No rashes or lesions. Neurologic: Neurovascularly intact without any focal sensory/motor deficits. Cranial nerves: II-XII intact, grossly non-focal. DATA: CBC: Recent Labs 09/23/24 1048 WBC 11.6* RBC 3.80 HGB 11.7 HCT 35.5 MCV 93.4 RDW 12.9 PLT 209 BMP: Recent Labs 09/23/24 1048 NA 133* K 3.9 CL 98 CO2 28 BUN 23 CREATININE 1.14* GLUCOSE 148* CALCIUM 8.6* ANIONGAP 7 LIVER PROFILE:No results for input(s): "AST", "ALT", "BILITOT", "ALKPHOS", "PROT" in the last 72 hours. No lab exists for component: LABALBU PT/INR: Recent Labs 09/23/24 1048 PROTIME 12.9* INR 1.2* CARDIAC ENZYMES: No results for input(s): "TROPONINI" in the last 72 hours. Procalcitonin: Lab Results Component Value Date PROCAL 0.18 (H) 09/23/2024 Urine Culture: No results found for this or any previous visit. COVID-19 PCR: No results for input(s): "COVID19" in the last 72 hours. I reviewed: [x] laboratory results [x] radiographic results At the time of today's encounter. Pt was advised of the results. IMPRESSION: Pneumonia Mechanical fall Leukocytosis H/o hypothyrodism H/o dvt, on eliquis H/o copd- not in exac PLAN: - discussed with ED physician and agree with admission - resp cultures, pcr panel, blood cultrues, atypicals, rocephin, zpak - procal - consult geriatrics - continue synthroid -PT/OT eval/increase activity -am labs, replace lytes prn -vitals per routine -home meds as ordered -DVT prophylaxis: [] Lovenox [] Heparin [] SCDs [x] Encourage ambulation [] Already on Anticoagulation -see below for additional orders, further recommendations to follow Orders Placed This Encounter Procedures SARS-CoV-2, Flu A/B, and RSV Combo Blood culture Site #1 - Suspected Infection Blood culture Site #2 - Suspected Infection XR chest 1 view XR pelvis 1 or 2 views US TRAUMA FAST POCUS CT head wo IV contrast CT cervical spine wo IV contrast CT chest wo IV contrast Type and Screen CBC auto differential Lactic acid with reflex Basic Metabolic Panel w/ Mg Reflex Magnesium Phosphorus PROTIME/INR & PTT Drug Screen Panel, Emergency (Drugs of Abuse) Ethanol Basic metabolic panel Confirmatory ABO/Rh Procalcitonin Test CBC auto differential Comprehensive Metabolic Panel w/ Mg Reflex Adult diet Regular Vital Signs Notify patient's primary care provider of admission Activity No Restrictions Full code Inpatient consult to Geriatric Medicine--[facility]; fall OT eval and treat PT eval and treat Initiate Oxygen Therapy Protocol Admit to inpatient Initiate observation status Code status: Full Code Please forward a copy of this H&P to the patient's PCP. Thank you. Electronically signed by Lashon Sullivan MD 09/23/2024 2:57 PM [employer] 09-23-2024 Note Attending History an d Physical Admit Date: 09/23/2024 PCP: Ria Longoria MD CHIEF COMPLAINT: FALL Reason for Admission: History Obtained From: pt and ER physician HISTORY OF PRESENT ILLNESS: IVAN is a 74 y.o. female with past medical history below who presents with chief complaint listed above. Pt had a witnessed mechanical fall at [facility], has a bruise on forehead. Pt reports she has been on oxygen for the past few days with mild cough and sputum production. In ER cxr concerning for pna. Will admit for further evaluation and management. Past Medical History: No past medical history on file. Past Surgical History: No past surgical history on file. Social History: Social History Socioeconomic History Marital status: Spouse name: Not on file Number of children: Not on file Years of education: Not on file Highest education level: Not on file Occupational History Not on file Tobacco Use Smoking status: Not on file Smokeless tobacco: Not on file Substance and Sexual Activity Alcohol use: Not on file Drug use: Not on file Sexual activity: Not on file Other Topics Concern Not on file Social History Narrative Not on file Social Drivers of Health Financial Resource Strain: Not on file Food Insecurity: Not on file Transportation Needs: Not on file Physical Activity: Not on file Stress: Not on file Social Connections: Not on file Intimate Partner Violence: Not on file Housing Stability: Not on file Family History: No family history on file. Medications Prior to Admission: (Not in a hospital admission) Allergies: Allergies Allergen Reactions Aspirin Butorphanol Hydromorphone Ibuprofen Oxycodone Prochlorperazine Salicylamide Sulfa Antibiotics Sumatriptan REVIEW OF SYSTEMS: 10 point review of systems done and all are neg except above Vitals: BP 105/62 Pulse 64 Temp 37 ?C (98.6 ?F) Resp 18 Ht 5' 7" (1.702 m) Wt 180 lb (81.6 kg) SpO2 95% BMI 28.19 kg/m? BMI Classification: Pulse Ox: SpO2 Av.9 % Min: 88 % Max: 98 % Supplemental O2: O2 Flow Rate (L/min): 3 L/min PHYSICAL EXAM: General appearance: No apparent distress, appears stated age and cooperative with exam. HEENT: Normal cephalic, atraumatic without obvious deformity. Pupils equal, round, and reactive to light. Extra ocular muscles intact. Conjunctivae/corneas clear. Neck: Supple, with full range of motion. No jugular venous distention. Trachea midline. No lymphadenopathy. Respiratory: mild wheezing pos bilaterally Cardiovascular: Regular rate and rhythm with normal S1/S2 without murmurs, rubs or gallops. Abdomen: Soft, non-tender, non-distended with normal bowel sounds. No rebound or guarding. Musculoskeletal: No clubbing, cyanosis or edema bilaterally. Full range of motion without deformity, +2 peripheral pulses in all extremities. Skin: Skin color, texture, turgor normal. No rashes or lesions. Neurologic: Neurovascularly intact without any focal sensory/motor deficits. Cranial nerves: II-XII intact, grossly non-focal. DATA: CBC: Recent Labs 09/23/24 1048 WBC 11.6* RBC 3.80 HGB 11.7 HCT 35.5 MCV 93.4 RDW 12.9 PLT 209 BMP: Recent Labs 09/23/24 1048 NA 133* K 3.9 CL 98 CO2 28 BUN 23 CREATININE 1.14* GLUCOSE 148* CALCIUM 8.6* ANIONGAP 7 LIVER PROFILE:No results for input(s): "AST", "ALT", "BILITOT", "ALKPHOS", "PROT" in the last 72 hours. No lab exists for component: LABALBU PT/INR: Recent Labs 09/23/24 1048 PROTIME 12.9* INR 1.2* CARDIAC ENZYMES: No results for input(s): "TROPONINI" in the last 72 hours. Procalcitonin: Lab Results Component Value Date PROCAL 0.18 (H) 09/23/2024 Urine Culture: No results found for this or any previous visit. COVID-19 PCR: No results for input(s): "COVID19" in the last 72 hours. I reviewed: [x] laboratory results [x] radiographic results At the time of today's encounter. Pt was advised of the results. IMPRESSION: Pneumonia Mechanical fall Leukocytosis H/o hypothyrodism H/o dvt, on eliquis H/o copd- not in [facility] PLAN: - discussed with ED physician and agree with admission - resp cultures, pcr panel, blood cultrues, atypicals, rocephin, zpak - procal - consult geriatrics - continue synthroid -PT/OT eval/increase activity -am labs, replace lytes prn -vitals per routine -home meds as ordered -DVT prophylaxis: [] Lovenox [] Heparin [] SCDs [x] Encourage ambulation [] Already on Anticoagulation -see below for additional orders, further recommendations to follow Orders Placed This Encounter Procedures SARS-CoV-2, Flu A/B, and RSV Combo Blood culture Site #1 - Suspected Infection Blood culture Site #2 - Suspected Infection XR chest 1 view XR pelvis 1 or 2 views US TRAUMA FAST POCUS CT head wo IV contrast CT cervical spine wo IV contrast CT chest wo IV contrast Type and Screen CBC auto differ (more content not included)... [facility] 09-23-2024 Note Attending History an d Physical Admit Date: 09/23/2024 PCP: Ria Longoria MD CHIEF COMPLAINT: FALL Reason for Admission: History Obtained From: pt and ER physician HISTORY OF PRESENT ILLNESS: IVAN is a 74 y.o. female with past medical history below who presents with chief complaint listed above. Pt had a witnessed mechanical fall at [facility], has a bruise on forehead. Pt reports she has been on oxygen for the past few days with mild cough and sputum production. In ER cxr concerning for pna. Will admit for further evaluation and management. Past Medical History: No past medical history on file. Past Surgical History: No past surgical history on file. Social History: Social History Socioeconomic History Marital status: Spouse name: Not on file Number of children: Not on file Years of education: Not on file Highest education level: Not on file Occupational History Not on file Tobacco Use Smoking status: Not on file Smokeless tobacco: Not on file Substance and Sexual Activity Alcohol use: Not on file Drug use: Not on file Sexual activity: Not on file Other Topics Concern Not on file Social History Narrative Not on file Social Drivers of Health Financial Resource Strain: Not on file Food Insecurity: Not on file Transportation Needs: Not on file Physical Activity: Not on file Stress: Not on file Social Connections: Not on file Intimate Partner Violence: Not on file Housing Stability: Not on file Family History: No family history on file. Medications Prior to Admission: (Not in a hospital admission) Allergies: Allergies Allergen Reactions Aspirin Butorphanol Hydromorphone Ibuprofen Oxycodone Prochlorperazine Salicylamide Sulfa Antibiotics Sumatriptan REVIEW OF SYSTEMS: 10 point review of systems done and all are neg except above Vitals: BP 105/62 Pulse 64 Temp 37 ?C (98.6 ?F) Resp 18 Ht 5' 7" (1.702 m) Wt 180 lb (81.6 kg) SpO2 95% BMI 28.19 kg/m? BMI Classification: Pulse Ox: SpO2 Av.9 % Min: 88 % Max: 98 % Supplemental O2: O2 Flow Rate (L/min): 3 L/min PHYSICAL EXAM: General appearance: No apparent distress, appears stated age and cooperative with exam. HEENT: Normal cephalic, atraumatic without obvious deformity. Pupils equal, round, and reactive to light. Extra ocular muscles intact. Conjunctivae/corneas clear. Neck: Supple, with full range of motion. No jugular venous distention. Trachea midline. No lymphadenopathy. Respiratory: mild wheezing pos bilaterally Cardiovascular: Regular rate and rhythm with normal S1/S2 without murmurs, rubs or gallops. Abdomen: Soft, non-tender, non-distended with normal bowel sounds. No rebound or guarding. Musculoskeletal: No clubbing, cyanosis or edema bilaterally. Full range of motion without deformity, +2 peripheral pulses in all extremities. Skin: Skin color, texture, turgor normal. No rashes or lesions. Neurologic: Neurovascularly intact without any focal sensory/motor deficits. Cranial nerves: II-XII intact, grossly non-focal. DATA: CBC: Recent Labs 09/23/24 1048 WBC 11.6* RBC 3.80 HGB 11.7 HCT 35.5 MCV 93.4 RDW 12.9 PLT 209 BMP: Recent Labs 09/23/24 1048 NA 133* K 3.9 CL 98 CO2 28 BUN 23 CREATININE 1.14* GLUCOSE 148* CALCIUM 8.6* ANIONGAP 7 LIVER PROFILE:No results for input(s): "AST", "ALT", "BILITOT", "ALKPHOS", "PROT" in the last 72 hours. No lab exists for component: LABALBU PT/INR: Recent Labs 09/23/24 1048 PROTIME 12.9* INR 1.2* CARDIAC ENZYMES: No results for input(s): "TROPONINI" in the last 72 hours. Procalcitonin: Lab Results Component Value Date PROCAL 0.18 (H) 09/23/2024 Urine Culture: No results found for this or any previous visit. COVID-19 PCR: No results for input(s): "COVID19" in the last 72 hours. I reviewed: [x] laboratory results [x] radiographic results At the time of today's encounter. Pt was advised of the results. IMPRESSION: Pneumonia Mechanical fall Leukocytosis H/o hypothyrodism H/o dvt, on eliquis H/o copd- not in exac PLAN: - discussed with ED physician and agree with admission - resp cultures, pcr panel, blood cultrues, atypicals, rocephin, zpak - procal - consult geriatrics - continue synthroid -PT/OT eval/increase activity -am labs, replace lytes prn -vitals per routine -home meds as ordered -DVT prophylaxis: [] Lovenox [] Heparin [] SCDs [x] Encourage ambulation [] Already on Anticoagulation -see below for additional orders, further recommendations to follow Orders Placed This Encounter Procedures SARS-CoV-2, Flu A/B, and RSV Combo Blood culture Site #1 - Suspected Infection Blood culture Site #2 - Suspected Infection XR chest 1 view XR pelvis 1 or 2 views US TRAUMA FAST POCUS CT head wo IV contrast CT cervical spine wo IV contrast CT chest wo IV contrast Type and Screen CBC auto differ (more content not included)... [facility] 09-23-2024 History and physical note Attending History and Physical Admit Date: 09/23/2024 PCP: Ria Longoria MD CHIEF COMPLAINT: FALL Reason for Admission: History Obtained From: pt and ER physician HISTORY OF PRESENT ILLNESS: IVAN is a 74 y.o. female with past medical history below who presents with chief complaint listed above. Pt had a witnessed mechanical fall at [facility], has a bruise on forehead. Pt reports she has been on oxygen for the past few days with mild cough and sputum production. In ER cxr concerning for pna. Will admit for further evaluation and management. Past Medical History: No past medical history on file. Past Surgical History: No past surgical history on file. Social History: Social History Socioeconomic History Marital status: Spouse name: Not on file Number of children: Not on file Years of education: Not on file Highest education level: Not on file Occupational History Not on file Tobacco Use Smoking status: Not on file Smokeless tobacco: Not on file Substance and Sexual Activity Alcohol use: Not on file Drug use: Not on file Sexual activity: Not on file Other Topics Concern Not on file Social History Narrative Not on file Social Drivers of Health Financial Resource Strain: Not on file Food Insecurity: Not on file Transportation Needs: Not on file Physical Activity: Not on file Stress: Not on file Social Connections: Not on file Intimate Partner Violence: Not on file Housing Stability: Not on file Family History: No family history on file. Medications Prior to Admission: (Not in a hospital admission) Allergies: Allergies Allergen Reactions Aspirin Butorphanol Hydromorphone Ibuprofen Oxycodone Prochlorperazine Salicylamide Sulfa Antibiotics Sumatriptan REVIEW OF SYSTEMS: 10 point review of systems done and all are neg except above Vitals: BP 105/62 Pulse 64 Temp 37 C (98.6 F) Resp 18 Ht 5' 7" (1.702 m) Wt 180 lb (81.6 kg) SpO2 95% BMI 28.19 kg/m BMI Classification: Pulse Ox: SpO2 Av.9 % Min: 88 % Max: 98 % Supplemental O2: O2 Flow Rate (L/min): 3 L/min PHYSICAL EXAM: General appearance: No apparent distress, appears stated age and cooperative with exam. HEENT: Normal cephalic, atraumatic without obvious deformity. Pupils equal, round, and reactive to light. Extra ocular muscles intact. Conjunctivae/corneas clear. Neck: Supple, with full range of motion. No jugular venous distention. Trachea midline. No lymphadenopathy. Respiratory: mild wheezing pos bilaterally Cardiovascular: Regular rate and rhythm with normal S1/S2 without murmurs, rubs or gallops. Abdomen: Soft, non-tender, non-distended with normal bowel sounds. No rebound or guarding. Musculoskeletal: No clubbing, cyanosis or edema bilaterally. Full range of motion without deformity, +2 peripheral pulses in all extremities. Skin: Skin color, texture, turgor normal. No rashes or lesions. Neurologic: Neurovascularly intact without any focal sensory/motor deficits. Cranial nerves: II-XII intact, grossly non-focal. DATA: CBC: Recent Labs 09/23/24 1048 WBC 11.6* RBC 3.80 HGB 11.7 HCT 35.5 MCV 93.4 RDW 12.9 PLT 209 BMP: Recent Labs 09/23/24 1048 NA 133* K 3.9 CL 98 CO2 28 BUN 23 CREATININE 1.14* GLUCOSE 148* CALCIUM 8.6* ANIONGAP 7 LIVER PROFILE:No results for input(s): "AST", "ALT", "BILITOT", "ALKPHOS", "PROT" in the last 72 hours. No lab exists for component: LABALBU PT/INR: Recent Labs 09/23/24 1048 PROTIME 12.9* INR 1.2* CARDIAC ENZYMES: No results for input(s): "TROPONINI" in the last 72 hours. Procalcitonin: Lab Results Component Value Date PROCAL 0.18 (H) 09/23/2024 Urine Culture: No results found for this or any previous visit. COVID-19 PCR: No results for input(s): "COVID19" in the last 72 hours. I reviewed: [x] laboratory results [x] radiographic results At the time of today's encounter. Pt was advised of the results. IMPRESSION: Pneumonia Mechanical fall Leukocytosis H/o hypothyrodism H/o dvt, on eliquis H/o copd- not in [facility] PLAN: - discussed with ED physician and agree with admission - resp cultures, pcr panel, blood cultrues, atypicals, rocephin, zpak - procal - consult geriatrics - continue synthroid -PT/OT eval/increase activity -am labs, replace lytes prn -vitals per routine -home meds as ordered -DVT prophylaxis: [] Lovenox [] Heparin [] SCDs [x] Encourage ambulation [] Already on Anticoagulation -see below for additional orders, further recommendations to follow Orders Placed This Encounter Procedures SARS-CoV-2, Flu A/B, and RSV Combo Blood culture Site #1 - Suspected Infection Blood culture Site #2 - Suspected Infection XR chest 1 view XR pelvis 1 or 2 views US TRAUMA FAST POCUS CT head wo IV contrast CT cervical spine wo IV contrast CT chest wo IV contrast Type and Screen CBC auto differential Lactic acid with reflex Basic Metabolic Panel w/ Mg Reflex Magnesium Phosphorus PROTIME/INR & PTT Drug Screen Panel, Emergency (Drugs of Abuse) Ethanol Basic metabolic panel Confirmatory ABO/Rh Procalcitonin Test CBC auto differential Comprehensive Metabolic Panel w/ Mg Reflex Adult diet Regular Vital Signs Notify patient's primary care provider of admission Activity No Restrictions Full code Inpatient consult to Geriatric Medicine--[facility]; fall OT eval and treat PT eval and treat Initiate Oxygen Therapy Protocol Admit to inpatient Initiate observation status Code status: Full Code Please forward a copy of this H&P to the patient's PCP. Thank you. Electronically signed by Lashon Sullivan MD 09/23/2024 2:57 PM documented in this encounter [facility] 09-23-2024 Emergency department Note Gave report to SHA Butcher [facility] 09-23-2024 Emergency department Note Gave report to SHA Butcher EMERGENCY DEPARTMENT ENCOUNTER Pt Name: Andre Blanca Birthdate 1950 Date of evaluation: 09/23/2024 ED Provider: Anitra Villatoro MD CHIEF COMPLAINT Chief Complaint Patient presents with Fall Fall and hit head on floor. c/o R hip pain. Baseline Aox3, per EMS Aox1-2. Takes plavix and has been feeling ill lately. HISTORY OF PRESENT ILLNESS (Location/Symptom, Timing/Onset, Context/Setting, Quality, Duration, Modifying Factors, Severity) Note limiting factors. I wore appropriate PPE for the entirety of this encounter. HPI Andre Blanca is a 74 y.o. female who presents to the emergency department for fall. Presenting from SNF. Fall was witnessed. There was no loss of consciousness and fall was mechanical in nature. Patient is not complaining of new pain since the fall but was noted to have an abrasion to her forehead and is on Plavix. Has been feeling ill for 3 to 4 days. Has been on 3 L of oxygen for the past 3 days at her facility which is a new requirement. Complains of subjective fever and chills and productive cough. Denies chest pain, abdominal pain. Complains of chronic left hip pain which she states is unchanged from her baseline. Nursing Notes were reviewed. Limitations to history: Outside historians: REVIEW OF SYSTEMS Review of Systems Pertinent positives and negatives as per HPI. PAST MEDICAL HISTORY No past medical history on file. SURGICAL HISTORY No past surgical history on file. CURRENT MEDICATIONS Current Discharge Medication List CONTINUE these medications which have NOT CHANGED Details busPIRone (Buspar) 10 MG tablet Take 10 mg by mouth 3 times daily. carBAMazepine (TEGretol) 200 MG tablet Take 200 mg by mouth 3 times daily. clopidogrel (Plavix) 75 MG tablet Take 75 mg by mouth daily. fludrocortisone (Florinef) 0.1 MG tablet Take 0.1 mg/day by mouth daily. folic acid (Folvite) 1 MG tablet Take 1 mg by mouth daily. guaiFENesin (Mucinex) 600 MG 12 hr tablet Take 600 mg by mouth 2 times daily. Do not crush, chew, or split. hydrOXYzine pamoate (Vistaril) 25 MG capsule Take 25 mg by mouth 2 times daily. levothyroxine (Tirosint) 88 MCG capsule Take 88 mcg by mouth every morning (before breakfast). meclizine (Antivert) 25 MG tablet Take 12.5 mg by mouth every 8 hours as needed for dizziness. Melatonin 10 MG capsule Take 10 mg by mouth Nightly. pantoprazole (ProtoNix) 20 MG EC tablet Take 40 mg by mouth 2 times daily. Do not crush, chew, or split. potassium chloride ER (Micro-K) 10 MEQ ER capsule Take 20 mEq by mouth 2 times daily. Do not crush or chew. pravastatin (Pravachol) 40 MG tablet Take 40 mg by mouth Nightly. pregabalin (Lyrica) 150 MG capsule Take 150 mg by mouth 2 times daily. QUEtiapine (SEROquel) 25 MG tablet Take 25 mg by mouth 2 times daily. risperiDONE (RisperDAL) 0.5 MG tablet Take 0.5 mg by mouth 2 times daily. therapeutic multivitamin-minerals (Theragran-M) tablet Take 1 tablet by mouth daily. tiZANidine (Zanaflex) 2 MG capsule Take 2 mg by mouth 2 times daily. traZODone (Desyrel) 150 MG tablet Take 150 mg by mouth Nightly. venlafaxine (Effexor) 75 MG tablet Take 75 mg by mouth daily. ALLERGIES Aspirin, Butorphanol, Hydromorphone, Ibuprofen, Oxycodone, Prochlorperazine, Salicylamide, Sulfa antibiotics, and Sumatriptan FAMILY HISTORY No family history on file. SOCIAL HISTORY Social History Socioeconomic History Marital status: Social Drivers of Health Intimate Partner Violence: Not At Risk (09/23/2024) Humiliation, Afraid, Rape, and Kick questionnaire Fear of Current or Ex-Partner: No Emotionally Abused: No Physically Abused: No Sexually Abused: No SCREENINGS Kelley Coma Scale Best Eye Response: Spontaneous Best Verbal Response: Confused Best Motor Response: Follows commands [place] Coma Scale Score: 14 PHYSICAL EXAM ED Triage Vitals Temp Heart Rate Resp BP 09/23/24 1046 09/23/24 1045 09/23/24 1053 09/23/24 1047 37 C (98.6 F) 68 25 (!) 85/46 SpO2 Temp src Heart Rate Source Patient Position 09/23/24 1045 -- -- -- (!) 88 % BP Location FiO2 (%) -- -- Physical Exam Vitals and nursing note reviewed. Constitutional: General: She is not in acute distress. Appearance: She is well-developed. HENT: Head: Normocephalic and atraumatic. Eyes: Conjunctiva/sclera: Conjunctivae normal. Neck: Comments: Hard cervical collar in place Cardiovascular: Rate and Rhythm: Normal rate and regular rhythm. Pulmonary: Breath sounds: Rales present. No wheezing or rhonchi. Comments: Mild accessory mm use; good air movement throughout Abdominal: General: There is no distension. Palpations: Abdomen is soft. Tenderness: There is no abdominal tenderness. There is no guarding or rebound. Musculoskeletal: Comments: Able to AP and lateral compression. Left hip appears internally rotated, the patient does have full active range of motion. No CT or L-spine tenderness to palpation. No step-offs or deformities. Skin: General: Skin is warm and dry. Capillary Refill: Capillary refill takes less than 2 seconds. Neurological: Mental Status: She is alert. DIAGNOSTIC RESULTS RADIOLOGY (Per Emergency Physician): Interpretation per the Radiologist below, if available at the time of this note: CT head wo IV contrast Final Result Impression: Likely chronic small vessel ischemic changes in the periventricular white matter. No acute intracranial abnormality. Examination: CT cervical spine Indication: fall Technique: Axial CT images of the cervical spine were obtained at 1 mm intervals. Dose reduction was employed with automatic exposure control. Sagittal and coronal reconstructions were provided as well. Findings: The cervical vertebral bodies are in gross anatomic alignment. There is no acute fracture. Moderate disc space loss present at C6/C7 with posterior disc bulging and small osteophytes. Moderate disc space loss present posteriorly at C5/C6. There is fusion of the right C2/C3 facet joint. There is no prevertebral soft tissue swelling. No cervical adenopathy is demonstrated. Multiple subcentimeter cervical lymph nodes are present, bilaterally. Impression: No acute osseous abnormality Examination: CT chest without contrast Indication: fall Technique: Axial CT images of the chest were obtained from the thoracic inlet through the lung bases at 1 mm intervals without IV contrast. Dose reduction was employed with automatic exposure control. Coronal and sagittal reconstructions were also provided for review. Findings: The aorta and pulmonary artery are grossly of normal caliber. No significant coronary artery calcification is present. The heart is not enlarged. Borderline slightly enlarged mediastinal lymph nodes present with alvin disease to the right of the speedy measuring 1.3 x 1.5 cm. Right basilar airspace disease present, greatest in the right lung base with consolidation. Patchy infiltrates of the right midlung as well. Small patchy left basilar infiltrate. Cholecystectomy changes present. There is a reverse left-sided shoulder arthroplasty. Mild to moderate degenerative changes of the thoracic spine are noted. Impression Diffuse infiltrate of the right mid and lower lung, greatest in the right lower lobe with consolidation. Mild left basilar infiltrate as well. Follow-up recommended to document resolution. Mediastinal adenopathy. Report Dictated on Electronically Signed By: Olya Kang MD Electronically Signed Date/Time: 09/23/2024 11:[address] cervical spine wo IV contrast Final Result Impression: Likely chronic small vessel ischemic changes in the periventricular white matter. No acute intracranial abnormality. Examination: CT cervical spine Indication: fall Technique: Axial CT images of the cervical spine were obtained at 1 mm intervals. Dose reduction was employed with automatic exposure control. Sagittal and coronal reconstructions were provided as well. Findings: The cervical vertebral bodies are in gross anatomic alignment. There is no acute fracture. Moderate disc space loss present at C6/C7 with posterior disc bulging and small osteophytes. Moderate disc space loss present posteriorly at C5/C6. There is fusion of the right C2/C3 facet joint. There is no prevertebral soft tissue swelling. No cervical adenopathy is demonstrated. Multiple subcentimeter cervical lymph nodes are present, bilaterally. Impression: No acute osseous abnormality Examination: CT chest without contrast Indication: fall Technique: Axial CT images of the chest were obtained from the thoracic inlet through the lung bases at 1 mm intervals without IV contrast. Dose reduction was employed with automatic exposure control. Coronal and sagittal reconstructions were also provided for review. Findings: The aorta and pulmonary artery are grossly of normal caliber. No significant coronary artery calcification is present. The heart is not enlarged. Borderline slightly enlarged mediastinal lymph nodes present with alvin disease to the right of the speedy measuring 1.3 x 1.5 cm. Right basilar airspace disease present, greatest in the right lung base with consolidation. Patchy infiltrates of the right midlung as well. Small patchy left basilar infiltrate. Cholecystectomy changes present. There is a reverse left-sided shoulder arthroplasty. Mild to moderate degenerative changes of the thoracic spine are noted. Impression Diffuse infiltrate of the right mid and lower lung, greatest in the right lower lobe with consolidation. Mild left basilar infiltrate as well. Follow-up recommended to document resolution. Mediastinal adenopathy. Report Dictated on Electronically Signed By: Olya Kang MD Electronically Signed Date/Time: 09/23/2024 11:[address] chest wo IV contrast Final Result Impression: Likely chronic small vessel ischemic changes in the periventricular white matter. No acute intracranial abnormality. Examination: CT cervical spine Indication: fall Technique: Axial CT images of the cervical spine were obtained at 1 mm intervals. Dose reduction was employed with automatic exposure control. Sagittal and coronal reconstructions were provided as well. Findings: The cervical vertebral bodies are in gross anatomic alignment. There is no acute fracture. Moderate disc space loss present at C6/C7 with posterior disc bulging and small osteophytes. Moderate disc space loss present posteriorly at C5/C6. There is fusion of the right C2/C3 facet joint. There is no prevertebral soft tissue swelling. No cervical adenopathy is demonstrated. Multiple subcentimeter cervical lymph nodes are present, bilaterally. Impression: No acute osseous abnormality Examination: CT chest without contrast Indication: fall Technique: Axial CT images of the chest were obtained from the thoracic inlet through the lung bases at 1 mm intervals without IV contrast. Dose reduction was employed with automatic exposure control. Coronal and sagittal reconstructions were also provided for review. Findings: The aorta and pulmonary artery are grossly of normal caliber. No significant coronary artery calcification is present. The heart is not enlarged. Borderline slightly enlarged mediastinal lymph nodes present with alvin disease to the right of the speedy measuring 1.3 x 1.5 cm. Right basilar airspace disease present, greatest in the right lung base with consolidation. Patchy infiltrates of the right midlung as well. Small patchy left basilar infiltrate. Cholecystectomy changes present. There is a reverse left-sided shoulder arthroplasty. Mild to moderate degenerative changes of the thoracic spine are noted. Impression Diffuse infiltrate of the right mid and lower lung, greatest in the right lower lobe with consolidation. Mild left basilar infiltrate as well. Follow-up recommended to document resolution. Mediastinal adenopathy. Report Dictated on Electronically Signed By: Olya Kang MD Electronically Signed Date/Time: 09/23/2024 11:31 AM EST XR pelvis 1 or 2 views Final Result 1. No acute fracture or dislocation. 2. Osteitis pubis. Report Dictated on Electronically Signed By: Praneeth Roberts MD Electronically Signed Date/Time: 09/23/2024 11:24 AM EST XR chest 1 view Final Result Coarsening of the interstitial lung markings is likely chronic. Blunting of the right costophrenic angle may represent atelectasis, infiltrate, and/or pleural effusion. Follow-up to clearing is recommended. Report Dictated on Electronically Signed By: Troy Rubin MD Electronically Signed Date/Time: 09/23/2024 11:11 AM EST US TRAUMA FAST POCUS (Results Pending) LABS: Labs Reviewed BLOOD CULTURE - Abnormal Result Value Blood Culture Gram-positive cocci (*) Narrative: Blood Collection Site: Right Wrist BLOOD CULTURE IDENTIFICATION - AEROBIC - Abnormal Staphylococcus epidermidis Detected (*) mecA/C (MRSE/MRSL) Detected (*) Narrative: Methodology: Multiplex PCR The [employer] BCID panel can detect the following organisms: E. faecalis, E. faecium, Staphylococcus spp., S. aureus, S. epidermidis, S. lugdunensis, Streptococcus spp., S. pyogenes (Group A), S. agalactiae (Group B), S. pneumoniae, A. baumannii complex, B. fragilis, H. influenzae, N. meningitidis, P. aeruginosa, S. maltophilia, Enterobacterales, E. cloacae complex, E. coli, K. aerogenes, K. oxytoca, K. pneumoniae, Proteus spp., Salmonella spp., S. marcescens, C. albicans, C. auris, C. glabrata, C. krusei, C. parapsilosis, C. tropicalis, and C. neoformans/gattii. The following antimicrobial resistance genes are reported if appropriate organisms are detected: mecA/C and Zoey/B. The following antimicrobial resistance genes are reported if detected and the appropriate organisms are detected: CTX-M, IMP, KPC, NDM, OXA-48-like, VIM, and mcr-1. RESPIRATORY PATHOGENS PANEL BY PCR - Abnormal SARS-CoV-2 Not Detected Adenovirus Not Detected Coronavirus HKU1 Not Detected Coronavirus NL63 Detected (*) Coronavirus 229E Not Detected Coronavirus OC43 Not Detected Human Metapneumovirus Not Detected Human Rhinovirus/Enterovirus Not Detected Influenza A Not Detected Influenza B Not Detected Parainfluenza 1 Not Detected Parainfluenza 2 Not Detected Parainfluenza 3 Not Detected Parainfluenza 4 Not Detected Respiratory Syncytial Virus Not Detected Bordetella pertussis Not Detected Bordetella parapertussis Not Detected Chlamydia pneumoniae Not Detected Mycoplasma pneumoniae Not Detected Narrative: Methodology: Multiplex PCR CBC WITH AUTO DIFFERENTIAL - Abnormal Auto WBC 11.6 (*) RBC 3.80 Hemoglobin 11.7 Hematocrit 35.5 MCV 93.4 MCH 30.8 MCHC 33.0 RDW 12.9 Platelets 209 MPV 10.6 nRBC 0.0 Neutrophils Relative 82.2 (*) Lymphocytes Relative 6.0 (*) Monocytes Relative 10.3 Eosinophils Relative 0.6 Basophils Relative 0.4 Immature Grans % 0.5 Neutrophils Absolute 9.5 (*) Lymphocytes Absolute 0.7 (*) Monocytes Absolute 1.2 (*) Eosinophils Absolute 0.1 Basophils Absolute 0.1 Immature Grans Absolute 0.1 (*) MAGNESIUM - Abnormal MAGNESIUM 1.5 (*) Narrative: Higher values can be expected in females during menses. PROTIME & APTT - Abnormal PROTHROMBIN TIME 12.9 (*) INR 1.2 (*) APTT 29.8 BASIC METABOLIC PANEL - Abnormal SODIUM 133 (*) POTASSIUM 3.9 CHLORIDE 98 CARBON DIOXIDE 28 UREA NITROGEN 23 CREATININE 1.14 (*) GLUCOSE 148 (*) CALCIUM 8.6 (*) ANION GAP 7 eGFR 50.3 (*) PROCALCITONIN TEST - Abnormal PROCALCITONIN 0.18 (*) Narrative: PCT <0.50 = Low risk of severe sepsis and/or septic shock. PCT >2.00 = High risk of severe sepsis and/or septic shock. CBC WITH AUTO DIFFERENTIAL - Abnormal Auto WBC 11.8 (*) RBC 3.61 (*) Hemoglobin 11.0 (*) Hematocrit 33.3 (*) MCV 92.2 MCH 30.5 MCHC 33.0 RDW 12.9 Platelets 220 MPV 10.3 nRBC 0.0 Neutrophils Relative 83.2 (*) Lymphocytes Relative 7.7 (*) Monocytes Relative 7.9 Eosinophils Relative 0.4 Basophils Relative 0.3 Immature Grans % 0.5 Neutrophils Absolute 9.8 (*) Lymphocytes Absolute 0.9 (*) Monocytes Absolute 0.9 Eosinophils Absolute 0.1 Basophils Absolute 0.0 Immature Grans Absolute 0.1 (*) COMPREHENSIVE METABOLIC PANEL - Abnormal SODIUM 138 POTASSIUM 3.3 (*) CHLORIDE 102 CARBON DIOXIDE 25 ANION GAP 11 UREA NITROGEN 11 CREATININE 0.76 GLUCOSE 127 (*) CALCIUM 8.8 AST (SGOT) 31 ALT 10 ALKALINE PHOSPHATASE 104 ALBUMIN 2.4 (*) BILIRUBIN, TOTAL 0.5 TOTAL PROTEIN 6.8 eGFR 81.8 MAGNESIUM - Abnormal MAGNESIUM 1.5 (*) Narrative: Higher values can be expected in females during menses. MAGNESIUM - Abnormal MAGNESIUM 1.5 (*) Narrative: Higher values can be expected in females during menses. CBC WITH AUTO DIFFERENTIAL - Abnormal Auto WBC 12.0 (*) RBC 3.64 (*) Hemoglobin 11.0 (*) Hematocrit 34.6 (*) MCV 95.1 MCH 30.2 MCHC 31.8 RDW 12.8 Platelets 246 MPV 10.3 nRBC 0.0 Neutrophils Relative 76.3 Lymphocytes Relative 11.1 (*) Monocytes Relative 9.7 Eosinophils Relative 1.7 Basophils Relative 0.5 Immature Grans % 0.7 Neutrophils Absolute 9.2 (*) Lymphocytes Absolute 1.3 Monocytes Absolute 1.2 (*) Eosinophils Absolute 0.2 Basophils Absolute 0.1 Immature Grans Absolute 0.1 (*) SARS-COV-2, FLU A/B, AND RSV COMBO - Normal SARS-CoV-2 Not Detected Respiratory Syncytial Virus Not Detected Influenza A Not Detected Influenza B Not Detected Narrative: Methodology: real-time, RT-PCR BLOOD CULTURE - Normal Blood Culture No growth at 24 hours Narrative: Blood Collection Site: Right Forearm LEGIONELLA AND STREPTOCOCCUS URINE ANTIGEN - Normal Legionella pneumophila Ag Not Detected Streptococcus pneumoniae Ag Not Detected Narrative: Methodology: Lateral flow enzyme immunoassay This assay is approved for detection of antigens to Streptococcus pneumoniae and Legionella pneumophila serogroup 1; however, other L. pneumophila serogroups may also be detected. LACTIC ACID WITH REFLEX - Normal LACTIC ACID 1.3 PHOSPHORUS - Normal PHOSPHORUS 2.5 ETHANOL - Normal ETHANOL IN SER/PLAS <10 Narrative: [employer] depression is seen >100 mg/dL. NOTE: This result is for medical treatment only. Analysis performed using non-forensic procedures. VITAMIN D DEFICIENCY SCREENING (VIT D 25) - Normal VIT D 25-OH, TOTAL 40 Narrative: Target concentration: 30 - 40 ng/mL; toxicity seen at concentrations >100 ng/mL Therapy is based on measurement of Total 25-OHD with the following classification levels: Less than 20 ng/mL: Indicative of Vit D deficiency 20-30 ng/mL: Suggests Vit D insufficiency Optimal: Greater than or equal to 30 ng/mL Test performed by [employer] Competitive Immunoassay, measuring Total Vitamin D, not individual fractions. CARBAMAZEPINE - Normal CARBAMAZEPINE 11.6 Narrative: Carbamazepine concentrations above 15 ug/mL are often associated with toxicity VITAMIN B12 - Normal VITAMIN B12 602 FOLATE - Normal FOLATE RESULT 16.3 THYROID STIMULATING HORMONE - Normal THYROID STIMULATING HORMONE 0.57 BASIC METABOLIC PANEL - Normal SODIUM 138 POTASSIUM 3.5 CHLORIDE 103 CARBON DIOXIDE 27 UREA NITROGEN 9 CREATININE 0.65 GLUCOSE 99 CALCIUM 8.9 ANION GAP 8 eGFR >90.0 RESPIRATORY CULTURE AND STAIN Respiratory culture Culture in progress Gram Stain Result Rare Epithelial cells per low power field Gram Stain Result Value: Many Polymorphonuclear leukocytes per low power field Gram Stain Result No organisms seen LEGIONELLA AND STREPTOCOCCUS URINE ANTIGEN, ORDERABLE Narrative: The following orders were created for panel order Legionella and Streptococcus Urine Antigen. Procedure Abnormality Status --------- ------ Legionella and Streptoco...[[id number]] Normal Final result Urine Hold Cup[[id number]] Please view results for these tests on the individual orders. C. DIFFICILE BY PCR WITH REFLEX TO EIA GASTROINTESTINAL PCR PANEL BLOOD TYPE AND SCREEN GEL ABO Grouping O Antibody Screen NEG Rh Type POS BASIC METABOLIC PANEL WITH MG REFLEX Narrative: The following orders were created for panel order Basic Metabolic Panel w/ Mg Reflex. Procedure Abnormality Status --------- ------ Basic metabolic panel[[id number]] Abnormal Final result Please view results for these tests on the individual orders. CONFIRMATORY ABO/RH ABO Grouping O Rh Type POS COMPREHENSIVE METABOLIC PANEL WITH MG REFLEX Narrative: The following orders were created for panel order Comprehensive Metabolic Panel w/ Mg Reflex. Procedure Abnormality Status --------- ------ Comprehensive metabolic ...[[id number]] Abnormal Final result Please view results for these tests on the individual orders. BLOOD TYPE AND SCREEN GEL ABO Grouping O Antibody Screen NEG Rh Type POS DRUGS OF ABUSE URINE HOLD CUP MYCOPLASMA PNEUMONIAE ANTIBODY, IGM All other labs were within normal range or not returned as of this dictation. EMERGENCY DEPARTMENT COURSE and DIFFERENTIAL DIAGNOSIS/MDM: Vitals: Vitals: 09/24/24 1931 09/24/24200709/25/24 0735 09/25/24 0757 BP: 136/70 136/64 BP Location: Right arm Right arm Patient Position: Sitting Pulse: 83 78 87 80 Resp: 21 18 15 18 Temp: (!) 35.9 C (96.7 F) 36.7 C (98 F) TempSrc: Temporal Temporal SpO2: 96% 94% 93% 95% Weight: Height: The patient presented with a chief complaint of witnessed fall from SNF. Was also noted to have 3-4 days of ill symptoms and new oxygen requirement. Trauma evaluation was remarkable only for small facial abrasion and chronic left hip pain. Imaging was negative for acute injuries. Patient required 3 L NC which is a new requirement from her baseline. CT chest without contrast shows dense right-sided infiltrate per my interpretation. Suspect bacterial pneumonia. Patient was empirically given Rocephin and azithromycin. Did not meet SIRS criteria. Patient did have hypotensive BP readings on the automatic machine; however, this appeared unresponsive to fluid. Lactic acid was within normal limits so I have low suspicion for hypoperfusion. Manual blood pressure was obtained and was normal. Suspect false readings. Given this, patient is stable for floor. Discussed with hospitalist who accepted for admission. Diagnoses as of 09/25/24 1014 Pneumonia due to organism Fall, initial encounter ED Medications managed: Medications cefTRIAXone (Rocephin) 1 g vial - Pyxis ADS Override Pull ( Not Given 09/23/24 1155) acetaminophen (Tylenol) tablet 650 mg (650 mg Oral Given 09/24/24 0555) Or acetaminophen (Tylenol) suppository 650 mg ( Rectal See Alternative 09/24/24 0555) ondansetron ODT (Zofran-ODT) disintegrating tablet 4 mg (4 mg Oral Given 09/24/24 1517) Or ondansetron (Zofran) injection 4 mg ( IntraVENous See Alternative 09/24/24 1517) polyethylene glycol (PEG) 3350 (Miralax) packet 17 g (has no administration in time range) cefTRIAXone (Rocephin) 1,000 mg in sodium chloride 0.9 % 50 mL IVPB Mini-Bag Plus (0 mg IntraVENous Stopped 09/24/24 1149) enoxaparin (Lovenox) syringe 40 mg (40 mg SubCUTAneous Given 09/24/24 1511) senna-docusate sodium (Senokot-S) 8.6-50 MG tablet 2 tablet (2 tablets Oral Given 09/25/24857) carBAMazepine (TEGretol) tablet 200 mg (200 mg Oral Given 09/25/24951) clopidogrel (Plavix) tablet 75 mg (75 mg Oral Given 09/25/24857) fludrocortisone (Florinef) tablet 0.1 mg (0.1 mg Oral Given 09/25/24951) folic acid (Folvite) tablet 1 mg (1 mg Oral Given 09/25/24857) guaiFENesin (Mucinex) 12 hr tablet 600 mg (600 mg Oral Given 09/25/24857) levothyroxine (Synthroid, Levoxyl) tablet 75 mcg (75 mcg Oral Given 09/25/24951) pravastatin (Pravachol) tablet 40 mg (40 mg Oral Given 09/24/242126) pantoprazole (ProtoNix) EC tablet 40 mg (40 mg Oral Given 09/25/24858) ipratropium-albuterol (Duo-Neb) 0.5-2.5 mg/3 mL nebulizer solution 3 mL (3 mL Nebulization Given 09/25/24 0757) busPIRone (Buspar) tablet 10 mg (10 mg Oral Given 09/25/24857) pregabalin (Lyrica) capsule 150 mg (150 mg Oral Given 09/25/24857) risperiDONE (RisperDAL) tablet 0.5 mg (0.5 mg Oral Given 09/25/24858) magnesium sulfate IVPB premix 2,000 mg (2,000 mg IntraVENous New Bag 09/25/24 1002) sodium chloride 0.9 % bolus (0 mL IntraVENous Stopped 09/23/24 1227) cefTRIAXone (Rocephin) 1,000 mg in sodium chloride 0.9 % 50 mL IVPB Mini-Bag Plus (0 mg IntraVENous Stopped 09/23/24 1233) azithromycin (Zithromax) 500 mg in sodium chloride 0.9 % 250 mL IVPB (ADD-[place]) (0 mg IntraVENous Stopped 09/23/24 1356) sodium chloride 0.9 % bolus 1,000 mL (0 mL IntraVENous Stopped 09/23/24 1254) ibuprofen tablet 400 mg (400 mg Oral Given 09/24/24 0825) potassium chloride CR (Klor-Con M10) ER tablet 40 mEq (40 mEq Oral Given 09/24/24 1755) PROCEDURES: Unless otherwise noted below, none Procedures FINAL IMPRESSION 1. Pneumonia due to organism 2. Fall, initial encounter DISPOSITION Observation 09/23/2024 02:45:10 PM PATIENT REFERRED TO: No follow-up provider specified. DISCHARGE MEDICATIONS: Current Discharge Medication List (Comment: Please note this report has been produced using speech recognition software and may contain errors related to that system including errors in grammar, punctuation, and spelling, as well as words and phrases that may be inappropriate. If there are any questions or concerns please feel free to contact the dictating provider for clarification.) Anitra Villatoro MD (electronically signed) Emergency Medicine Provider Anitra Villatoro MD Resident 09/25/24 1015 Cosigned by Muna Edmonds MD at 09/25/2024 5:57 PM EST Emergency Department Encounter [facility] EMERGENCY DEPT Patient: Andre Blanca : 1950 Date of Evaluation: 09/23/2024 ED Supervising Physician: Muna Edmonds MD I personally evaluated IVAN Wheat and made/approved the management plan and take responsibility for the patient management. This will serve as my Supervisory note and shared attestation. I did perform a substantive portion of the visit including all aspects of the Medical Decision Making. I wore appropriate PPE for the entirety of this encounter. In brief, Andre Blanca is a 74 y.o. that presents to the emergency department as a level 3 trauma activation after a fall. Reportedly fell at her nursing facility today with a witnessed fall and was found to be altered. She does take Plavix. Patient states that she has been feeling ill for the last couple of days. Endorses some shortness of breath and a cough. Complaining of some pain to her left hip and has a history of a hip replacement. Focused exam: Chronically appearing female in no acute distress. Vital signs reviewed and notable for hypotension and hypoxia requiring supplemental oxygen. Lungs are rhonchorous bilaterally worse on the right compared to the left. Some mild increased work of breathing with speaking full sentences. Abdomen soft and nontender to palpation. She has full range of motion of her left lower extremity and right lower extremity. No obvious signs of trauma to the extremities. Brief ED course/MDM: 74-year-old female present emergency department today as a level 3 trauma activation after a fall. She is hypotensive upon arrival and tachypneic and hypoxic. She had a witnessed fall at her nursing facility but has been sick over the last few days. I think is more likely infectious causing her confusion and her hypoxia rather than from the traumatic injury however we will send for scans. Labs are also done here in the emergency department. She was fluid resuscitated in the trauma bay. CT scan of her head does not show any acute findings. Chest x-ray that was done in the trauma bay does not show a right-sided pneumonia. X-ray of her pelvis does not show any acute findings per my interpretation. CT scan of her head and C-spine is unremarkable. Hide CT scan of her chest does show this right sided mid and lower lung pneumonia. Started on antibiotics for this and plan will be to admit the patient for hypoxia and confusion secondary to pneumonia. Her blood pressures continues to be soft. We will give her a second liter of fluids to see if she is fluid responsive versus requiring pressors. Her pressures did finally settle down and did not require pressors. Patient will be admitted for her pneumonia. Admitted in stable but guarded condition. CRITICAL CARE TIME Total Critical Care time was 45 minutes, excluding separately reportable procedures. There was a high probability of clinically significant/life threatening deterioration in the patient's condition which required my urgent intervention. Diagnostics interpreted by me: chest x-ray, pelvis x-ray I personally discussed the patient's management with other clinicians: All diagnostic, treatment, and disposition decisions were made by myself in conjunction with the Resident. I also supervised beck portions of any procedures performed by the Resident. For all further details of the patient's emergency department visit, please see their documentation. (Comment: Please note this report has been produced using speech recognition software and may contain errors related to that system including errors in grammar, punctuation, and spelling, as well as words and phrases that may be inappropriate. If there are any questions or concerns please feel free to contact the dictating provider for clarification.) Muna Edmonds MD Acute Care [facility] Muna Edmonds MD 09/23/24 1507 Muna Edmonds MD 09/23/24 1507 documented in this encounter [facility] 09-23-2024 Physician Emergency department Note EMERGENCY DEPARTMENT ENCOUNTER Pt Name: Andre Blanca Birthdate 1950 Date of evaluation: 09/23/2024 ED Provider: Anitra Villatoro MD CHIEF COMPLAINT Chief Complaint Patient presents with Fall Fall and hit head on floor. c/o R hip pain. Baseline Aox3, per EMS Aox1-2. Takes plavix and has been feeling ill lately. HISTORY OF PRESENT ILLNESS (Location/Symptom, Timing/Onset, Context/Setting, Quality, Duration, Modifying Factors, Severity) Note limiting factors. I wore appropriate PPE for the entirety of this encounter. HPI Andre Blanca is a 74 y.o. female who presents to the emergency department for fall. Presenting from SNF. Fall was witnessed. There was no loss of consciousness and fall was mechanical in nature. Patient is not complaining of new pain since the fall but was noted to have an abrasion to her forehead and is on Plavix. Has been feeling ill for 3 to 4 days. Has been on 3 L of oxygen for the past 3 days at her facility which is a new requirement. Complains of subjective fever and chills and productive cough. Denies chest pain, abdominal pain. Complains of chronic left hip pain which she states is unchanged from her baseline. Nursing Notes were reviewed. Limitations to history: Outside historians: REVIEW OF SYSTEMS Review of Systems Pertinent positives and negatives as per HPI. PAST MEDICAL HISTORY No past medical history on file. SURGICAL HISTORY No past surgical history on file. CURRENT MEDICATIONS Current Discharge Medication List CONTINUE these medications which have NOT CHANGED Details busPIRone (Buspar) 10 MG tablet Take 10 mg by mouth 3 times daily. carBAMazepine (TEGretol) 200 MG tablet Take 200 mg by mouth 3 times daily. clopidogrel (Plavix) 75 MG tablet Take 75 mg by mouth daily. fludrocortisone (Florinef) 0.1 MG tablet Take 0.1 mg/day by mouth daily. folic acid (Folvite) 1 MG tablet Take 1 mg by mouth daily. guaiFENesin (Mucinex) 600 MG 12 hr tablet Take 600 mg by mouth 2 times daily. Do not crush, chew, or split. hydrOXYzine pamoate (Vistaril) 25 MG capsule Take 25 mg by mouth 2 times daily. levothyroxine (Tirosint) 88 MCG capsule Take 88 mcg by mouth every morning (before breakfast). meclizine (Antivert) 25 MG tablet Take 12.5 mg by mouth every 8 hours as needed for dizziness. Melatonin 10 MG capsule Take 10 mg by mouth Nightly. pantoprazole (ProtoNix) 20 MG EC tablet Take 40 mg by mouth 2 times daily. Do not crush, chew, or split. potassium chloride ER (Micro-K) 10 MEQ ER capsule Take 20 mEq by mouth 2 times daily. Do not crush or chew. pravastatin (Pravachol) 40 MG tablet Take 40 mg by mouth Nightly. pregabalin (Lyrica) 150 MG capsule Take 150 mg by mouth 2 times daily. QUEtiapine (SEROquel) 25 MG tablet Take 25 mg by mouth 2 times daily. risperiDONE (RisperDAL) 0.5 MG tablet Take 0.5 mg by mouth 2 times daily. therapeutic multivitamin-minerals (Theragran-M) tablet Take 1 tablet by mouth daily. tiZANidine (Zanaflex) 2 MG capsule Take 2 mg by mouth 2 times daily. traZODone (Desyrel) 150 MG tablet Take 150 mg by mouth Nightly. venlafaxine (Effexor) 75 MG tablet Take 75 mg by mouth daily. ALLERGIES Aspirin, Butorphanol, Hydromorphone, Ibuprofen, Oxycodone, Prochlorperazine, Salicylamide, Sulfa antibiotics, and Sumatriptan FAMILY HISTORY No family history on file. SOCIAL HISTORY Social History Socioeconomic History Marital status: Social [employer] Intimate Partner Violence: Not At Risk (09/23/2024) Humiliation, Afraid, Rape, and Kick questionnaire Fear of Current or Ex-Partner: No Emotionally Abused: No Physically Abused: No Sexually Abused: No SCREENINGS [place] Coma Scale Best Eye Response: Spontaneous Best Verbal Response: Confused Best Motor Response: Follows commands [place] Coma Scale Score: 14 PHYSICAL EXAM ED Triage Vitals Temp Heart Rate Resp BP 09/23/24 1046 09/23/24 1045 09/23/24 1053 09/23/24 1047 37 C (98.6 F) 68 25 (!) 85/46 SpO2 Temp src Heart Rate Source Patient Position 09/23/24 1045 -- -- -- (!) 88 % BP Location FiO2 (%) -- -- Physical Exam Vitals and nursing note reviewed. Constitutional: General: She is not in acute distress. Appearance: She is well-developed. HENT: Head: Normocephalic and atraumatic. Eyes: Conjunctiva/sclera: Conjunctivae normal. Neck: Comments: Hard cervical collar in place Cardiovascular: Rate and Rhythm: Normal rate and regular rhythm. Pulmonary: Breath sounds: Rales present. No wheezing or rhonchi. Comments: Mild accessory mm use; good air movement throughout Abdominal: General: There is no distension. Palpations: Abdomen is soft. Tenderness: There is no abdominal tenderness. There is no guarding or rebound. Musculoskeletal: Comments: Able to AP and lateral compression. Left hip appears internally rotated, the patient does have full active range of motion. No CT or L-spine tenderness to palpation. No step-offs or deformities. Skin: General: Skin is warm and dry. Capillary Refill: Capillary refill takes less than 2 seconds. Neurological: Mental Status: She is alert. DIAGNOSTIC RESULTS RADIOLOGY (Per Emergency Physician): Interpretation per the Radiologist below, if available at the time of this note: CT head wo IV contrast Final Result Impression: Likely chronic small vessel ischemic changes in the periventricular white matter. No acute intracranial abnormality. Examination: CT cervical spine Indication: fall Technique: Axial CT images of the cervical spine were obtained at 1 mm intervals. Dose reduction was employed with automatic exposure control. Sagittal and coronal reconstructions were provided as well. Findings: The cervical vertebral bodies are in gross anatomic alignment. There is no acute fracture. Moderate disc space loss present at C6/C7 with posterior disc bulging and small osteophytes. Moderate disc space loss present posteriorly at C5/C6. There is fusion of the right C2/C3 facet joint. There is no prevertebral soft tissue swelling. No cervical adenopathy is demonstrated. Multiple subcentimeter cervical lymph nodes are present, bilaterally. Impression: No acute osseous abnormality Examination: CT chest without contrast Indication: fall Technique: Axial CT images of the chest were obtained from the thoracic inlet through the lung bases at 1 mm intervals without IV contrast. Dose reduction was employed with automatic exposure control. Coronal and sagittal reconstructions were also provided for review. Findings: The aorta and pulmonary artery are grossly of normal caliber. No significant coronary artery calcification is present. The heart is not enlarged. Borderline slightly enlarged mediastinal lymph nodes present with alvin disease to the right of the speedy measuring 1.3 x 1.5 cm. Right basilar airspace disease present, greatest in the right lung base with consolidation. Patchy infiltrates of the right midlung as well. Small patchy left basilar infiltrate. Cholecystectomy changes present. There is a reverse left-sided shoulder arthroplasty. Mild to moderate degenerative changes of the thoracic spine are noted. Impression Diffuse infiltrate of the right mid and lower lung, greatest in the right lower lobe with consolidation. Mild left basilar infiltrate as well. Follow-up recommended to document resolution. Mediastinal adenopathy. Report Dictated on Electronically Signed By: Olya Kang MD Electronically Signed Date/Time: 09/23/2024 11:[address] cervical spine wo IV contrast Final Result Impression: Likely chronic small vessel ischemic changes in the periventricular white matter. No acute intracranial abnormality. Examination: CT cervical spine Indication: fall Technique: Axial CT images of the cervical spine were obtained at 1 mm intervals. Dose reduction was employed with automatic exposure control. Sagittal and coronal reconstructions were provided as well. Findings: The cervical vertebral bodies are in gross anatomic alignment. There is no acute fracture. Moderate disc space loss present at C6/C7 with posterior disc bulging and small osteophytes. Moderate disc space loss present posteriorly at C5/C6. There is fusion of the right C2/C3 facet joint. There is no prevertebral soft tissue swelling. No cervical adenopathy is demonstrated. Multiple subcentimeter cervical lymph nodes are present, bilaterally. Impression: No acute osseous abnormality Examination: CT chest without contrast Indication: fall Technique: Axial CT images of the chest were obtained from the thoracic inlet through the lung bases at 1 mm intervals without IV contrast. Dose reduction was employed with automatic exposure control. Coronal and sagittal reconstructions were also provided for review. Findings: The aorta and pulmonary artery are grossly of normal caliber. No significant coronary artery calcification is present. The heart is not enlarged. Borderline slightly enlarged mediastinal lymph nodes present with alvin disease to the right of the speedy measuring 1.3 x 1.5 cm. Right basilar airspace disease present, greatest in the right lung base with consolidation. Patchy infiltrates of the right midlung as well. Small patchy left basilar infiltrate. Cholecystectomy changes present. There is a reverse left-sided shoulder arthroplasty. Mild to moderate degenerative changes of the thoracic spine are noted. Impression Diffuse infiltrate of the right mid and lower lung, greatest in the right lower lobe with consolidation. Mild left basilar infiltrate as well. Follow-up recommended to document resolution. Mediastinal adenopathy. Report Dictated on Electronically Signed By: Olya Kang MD Electronically Signed Date/Time: 09/23/2024 11:[address] chest wo IV contrast Final Result Impression: Likely chronic small vessel ischemic changes in the periventricular white matter. No acute intracranial abnormality. Examination: CT cervical spine Indication: fall Technique: Axial CT images of the cervical spine were obtained at 1 mm intervals. Dose reduction was employed with automatic exposure control. Sagittal and coronal reconstructions were provided as well. Findings: The cervical vertebral bodies are in gross anatomic alignment. There is no acute fracture. Moderate disc space loss present at C6/C7 with posterior disc bulging and small osteophytes. Moderate disc space loss present posteriorly at C5/C6. There is fusion of the right C2/C3 facet joint. There is no prevertebral soft tissue swelling. No cervical adenopathy is demonstrated. Multiple subcentimeter cervical lymph nodes are present, bilaterally. Impression: No acute osseous abnormality Examination: CT chest without contrast Indication: fall Technique: Axial CT images of the chest were obtained from the thoracic inlet through the lung bases at 1 mm intervals without IV contrast. Dose reduction was employed with automatic exposure control. Coronal and sagittal reconstructions were also provided for review. Findings: The aorta and pulmonary artery are grossly of normal caliber. No significant coronary artery calcification is present. The heart is not enlarged. Borderline slightly enlarged mediastinal lymph nodes present with alvin disease to the right of the speedy measuring 1.3 x 1.5 cm. Right basilar airspace disease present, greatest in the right lung base with consolidation. Patchy infiltrates of the right midlung as well. Small patchy left basilar infiltrate. Cholecystectomy changes present. There is a reverse left-sided shoulder arthroplasty. Mild to moderate degenerative changes of the thoracic spine are noted. Impression Diffuse infiltrate of the right mid and lower lung, greatest in the right lower lobe with consolidation. Mild left basilar infiltrate as well. Follow-up recommended to document resolution. Mediastinal adenopathy. Report Dictated on Electronically Signed By: Olya Kang MD Electronically Signed Date/Time: 09/23/2024 11:31 AM EST XR pelvis 1 or 2 views Final Result 1. No acute fracture or dislocation. 2. Osteitis pubis. Report Dictated on Electronically Signed By: Praneeth Roberts MD Electronically Signed Date/Time: 09/23/2024 11:24 AM EST XR chest 1 view Final Result Coarsening of the interstitial lung markings is likely chronic. Blunting of the right costophrenic angle may represent atelectasis, infiltrate, and/or pleural effusion. Follow-up to clearing is recommended. Report Dictated on Electronically Signed By: Troy Rubin MD Electronically Signed Date/Time: 09/23/2024 11:11 AM EST US TRAUMA FAST POCUS (Results Pending) LABS: Labs Reviewed BLOOD CULTURE - Abnormal Result Value Blood Culture Gram-positive cocci (*) Narrative: Blood Collection Site: Right Wrist BLOOD CULTURE IDENTIFICATION - AEROBIC - Abnormal Staphylococcus epidermidis Detected (*) mecA/C (MRSE/MRSL) Detected (*) Narrative: Methodology: Multiplex PCR The [employer] BCID panel can detect the following organisms: E. faecalis, E. faecium, Staphylococcus spp., S. aureus, S. epidermidis, S. lugdunensis, Streptococcus spp., S. pyogenes (Group A), S. agalactiae (Group B), S. pneumoniae, A. baumannii complex, B. fragilis, H. influenzae, N. meningitidis, P. aeruginosa, S. maltophilia, Enterobacterales, E. cloacae complex, E. coli, K. aerogenes, K. oxytoca, K. pneumoniae, Proteus spp., Salmonella spp., S. marcescens, C. albicans, C. auris, C. glabrata, C. krusei, C. parapsilosis, C. tropicalis, and C. neoformans/gattii. The following antimicrobial resistance genes are reported if appropriate organisms are detected: mecA/C and Zoey/B. The following antimicrobial resistance genes are reported if detected and the appropriate organisms are detected: CTX-M, IMP, KPC, NDM, OXA-48-like, VIM, and mcr-1. RESPIRATORY PATHOGENS PANEL BY PCR - Abnormal SARS-CoV-2 Not Detected Adenovirus Not Detected Coronavirus HKU1 Not Detected Coronavirus NL63 Detected (*) Coronavirus 229E Not Detected Coronavirus OC43 Not Detected Human Metapneumovirus Not Detected Human Rhinovirus/Enterovirus Not Detected Influenza A Not Detected Influenza B Not Detected Parainfluenza 1 Not Detected Parainfluenza 2 Not Detected Parainfluenza 3 Not Detected Parainfluenza 4 Not Detected Respiratory Syncytial Virus Not Detected Bordetella pertussis Not Detected Bordetella parapertussis Not Detected Chlamydia pneumoniae Not Detected Mycoplasma pneumoniae Not Detected Narrative: Methodology: Multiplex PCR CBC WITH AUTO DIFFERENTIAL - Abnormal Auto WBC 11.6 (*) RBC 3.80 Hemoglobin 11.7 Hematocrit 35.5 MCV 93.4 MCH 30.8 MCHC 33.0 RDW 12.9 Platelets 209 MPV 10.6 nRBC 0.0 Neutrophils Relative 82.2 (*) Lymphocytes Relative 6.0 (*) Monocytes Relative 10.3 Eosinophils Relative 0.6 Basophils Relative 0.4 Immature Grans % 0.5 Neutrophils Absolute 9.5 (*) Lymphocytes Absolute 0.7 (*) Monocytes Absolute 1.2 (*) Eosinophils Absolute 0.1 Basophils Absolute 0.1 Immature Grans Absolute 0.1 (*) MAGNESIUM - Abnormal MAGNESIUM 1.5 (*) Narrative: Higher values can be expected in females during menses. PROTIME & APTT - Abnormal PROTHROMBIN TIME 12.9 (*) INR 1.2 (*) APTT 29.8 BASIC METABOLIC PANEL - Abnormal SODIUM 133 (*) POTASSIUM 3.9 CHLORIDE 98 CARBON DIOXIDE 28 UREA NITROGEN 23 CREATININE 1.14 (*) GLUCOSE 148 (*) CALCIUM 8.6 (*) ANION GAP 7 eGFR 50.3 (*) PROCALCITONIN TEST - Abnormal PROCALCITONIN 0.18 (*) Narrative: PCT <0.50 = Low risk of severe sepsis and/or septic shock. PCT >2.00 = High risk of severe sepsis and/or septic shock. CBC WITH AUTO DIFFERENTIAL - Abnormal Auto WBC 11.8 (*) RBC 3.61 (*) Hemoglobin 11.0 (*) Hematocrit 33.3 (*) MCV 92.2 MCH 30.5 MCHC 33.0 RDW 12.9 Platelets 220 MPV 10.3 nRBC 0.0 Neutrophils Relative 83.2 (*) Lymphocytes Relative 7.7 (*) Monocytes Relative 7.9 Eosinophils Relative 0.4 Basophils Relative 0.3 Immature Grans % 0.5 Neutrophils Absolute 9.8 (*) Lymphocytes Absolute 0.9 (*) Monocytes Absolute 0.9 Eosinophils Absolute 0.1 Basophils Absolute 0.0 Immature Grans Absolute 0.1 (*) COMPREHENSIVE METABOLIC PANEL - Abnormal SODIUM 138 POTASSIUM 3.3 (*) CHLORIDE 102 CARBON DIOXIDE 25 ANION GAP 11 UREA NITROGEN 11 CREATININE 0.76 GLUCOSE 127 (*) CALCIUM 8.8 AST (SGOT) 31 ALT 10 ALKALINE PHOSPHATASE 104 ALBUMIN 2.4 (*) BILIRUBIN, TOTAL 0.5 TOTAL PROTEIN 6.8 eGFR 81.8 MAGNESIUM - Abnormal MAGNESIUM 1.5 (*) Narrative: Higher values can be expected in females during menses. MAGNESIUM - Abnormal MAGNESIUM 1.5 (*) Narrative: Higher values can be expected in females during menses. CBC WITH AUTO DIFFERENTIAL - Abnormal Auto WBC 12.0 (*) RBC 3.64 (*) Hemoglobin 11.0 (*) Hematocrit 34.6 (*) MCV 95.1 MCH 30.2 MCHC 31.8 RDW 12.8 Platelets 246 MPV 10.3 nRBC 0.0 Neutrophils Relative 76.3 Lymphocytes Relative 11.1 (*) Monocytes Relative 9.7 Eosinophils Relative 1.7 Basophils Relative 0.5 Immature Grans % 0.7 Neutrophils Absolute 9.2 (*) Lymphocytes Absolute 1.3 Monocytes Absolute 1.2 (*) Eosinophils Absolute 0.2 Basophils Absolute 0.1 Immature Grans Absolute 0.1 (*) SARS-COV-2, FLU A/B, AND RSV COMBO - Normal SARS-CoV-2 Not Detected Respiratory Syncytial Virus Not Detected Influenza A Not Detected Influenza B Not Detected Narrative: Methodology: real-time, RT-PCR BLOOD CULTURE - Normal Blood Culture No growth at 24 hours Narrative: Blood Collection Site: Right Forearm LEGIONELLA AND STREPTOCOCCUS URINE ANTIGEN - Normal Legionella pneumophila Ag Not Detected Streptococcus pneumoniae Ag Not Detected Narrative: Methodology: Lateral flow enzyme immunoassay This assay is approved for detection of antigens to Streptococcus pneumoniae and Legionella pneumophila serogroup 1; however, other L. pneumophila serogroups may also be detected. LACTIC ACID WITH REFLEX - Normal LACTIC ACID 1.3 PHOSPHORUS - Normal PHOSPHORUS 2.5 ETHANOL - Normal ETHANOL IN SER/PLAS <10 Narrative: [employer] depression is seen >100 mg/dL. NOTE: This result is for medical treatment only. Analysis performed using non-forensic procedures. VITAMIN D DEFICIENCY SCREENING (VIT D 25) - Normal VIT D 25-OH, TOTAL 40 Narrative: Target concentration: 30 - 40 ng/mL; toxicity seen at concentrations >100 ng/mL Therapy is based on measurement of Total 25-OHD with the following classification levels: Less than 20 ng/mL: Indicative of Vit D deficiency 20-30 ng/mL: Suggests Vit D insufficiency Optimal: Greater than or equal to 30 ng/mL Test performed by [employer] Competitive Immunoassay, measuring Total Vitamin D, not individual fractions. CARBAMAZEPINE - Normal CARBAMAZEPINE 11.6 Narrative: Carbamazepine concentrations above 15 ug/mL are often associated with toxicity VITAMIN B12 - Normal VITAMIN B12 602 FOLATE - Normal FOLATE RESULT 16.3 THYROID STIMULATING HORMONE - Normal THYROID STIMULATING HORMONE 0.57 BASIC METABOLIC PANEL - Normal SODIUM 138 POTASSIUM 3.5 CHLORIDE 103 CARBON DIOXIDE 27 UREA NITROGEN 9 CREATININE 0.65 GLUCOSE 99 CALCIUM 8.9 ANION GAP 8 eGFR >90.0 RESPIRATORY CULTURE AND STAIN Respiratory culture Culture in progress Gram Stain Result Rare Epithelial cells per low power field Gram Stain Result Value: Many Polymorphonuclear leukocytes per low power field Gram Stain Result No organisms seen LEGIONELLA AND STREPTOCOCCUS URINE ANTIGEN, ORDERABLE Narrative: The following orders were created for panel order Legionella and Streptococcus Urine Antigen. Procedure Abnormality Status --------- ------ Legionella and Streptoco...[[id number]] Normal Final result Urine Hold Cup[[id number]] Please view results for these tests on the individual orders. C. DIFFICILE BY PCR WITH REFLEX TO EIA GASTROINTESTINAL PCR PANEL BLOOD TYPE AND SCREEN GEL ABO Grouping O Antibody Screen NEG Rh Type POS BASIC METABOLIC PANEL WITH MG REFLEX Narrative: The following orders were created for panel order Basic Metabolic Panel w/ Mg Reflex. Procedure Abnormality Status --------- ------ Basic metabolic panel[[id number]] Abnormal Final result Please view results for these tests on the individual orders. CONFIRMATORY ABO/RH ABO Grouping O Rh Type POS COMPREHENSIVE METABOLIC PANEL WITH MG REFLEX Narrative: The following orders were created for panel order Comprehensive Metabolic Panel w/ Mg Reflex. Procedure Abnormality Status --------- ------ Comprehensive metabolic ...[[id number]] Abnormal Final result Please view results for these tests on the individual orders. BLOOD TYPE AND SCREEN GEL ABO Grouping O Antibody Screen NEG Rh Type POS DRUGS OF ABUSE URINE HOLD CUP MYCOPLASMA PNEUMONIAE ANTIBODY, IGM All other labs were within normal range or not returned as of this dictation. EMERGENCY DEPARTMENT COURSE and DIFFERENTIAL DIAGNOSIS/MDM: Vitals: Vitals: 09/24/24 1931 09/24/24200709/25/24 0735 09/25/24 0757 BP: 136/70 136/64 BP Location: Right arm Right arm Patient Position: Sitting Pulse: 83 78 87 80 Resp: 21 18 15 18 Temp: (!) 35.9 C (96.7 F) 36.7 C (98 F) TempSrc: Temporal Temporal SpO2: 96% 94% 93% 95% Weight: Height: The patient presented with a chief complaint of witnessed fall from SNF. Was also noted to have 3-4 days of ill symptoms and new oxygen requirement. Trauma evaluation was remarkable only for small facial abrasion and chronic left hip pain. Imaging was negative for acute injuries. Patient required 3 L NC which is a new requirement from her baseline. CT chest without contrast shows dense right-sided infiltrate per my interpretation. Suspect bacterial pneumonia. Patient was empirically given Rocephin and azithromycin. Did not meet SIRS criteria. Patient did have hypotensive BP readings on the automatic machine; however, this appeared unresponsive to fluid. Lactic acid was within normal limits so I have low suspicion for hypoperfusion. Manual blood pressure was obtained and was normal. Suspect false readings. Given this, patient is stable for floor. Discussed with hospitalist who accepted for admission. Diagnoses as of 09/25/24 1014 Pneumonia due to organism Fall, initial encounter ED Medications managed: Medications cefTRIAXone (Rocephin) 1 g vial - Pyxis ADS Override Pull ( Not Given 09/23/24 1155) acetaminophen (Tylenol) tablet 650 mg (650 mg Oral Given 09/24/24554) Or acetaminophen (Tylenol) suppository 650 mg ( Rectal See Alternative 09/24/24554) ondansetron ODT (Zofran-ODT) disintegrating tablet 4 mg (4 mg Oral Given 09/24/241516) Or ondansetron (Zofran) injection 4 mg ( IntraVENous See Alternative 09/24/241516) polyethylene glycol (PEG) 3350 (Miralax) packet 17 g (has no administration in time range) cefTRIAXone (Rocephin) 1,000 mg in sodium chloride 0.9 % 50 mL IVPB Mini-Bag Plus (0 mg IntraVENous Stopped 09/24/24 1149) enoxaparin (Lovenox) syringe 40 mg (40 mg SubCUTAneous Given 09/24/241510) senna-docusate sodium (Senokot-S) 8.6-50 MG tablet 2 tablet (2 tablets Oral Given 09/25/24857) carBAMazepine (TEGretol) tablet 200 mg (200 mg Oral Given 09/25/24951) clopidogrel (Plavix) tablet 75 mg (75 mg Oral Given 09/25/24857) fludrocortisone (Florinef) tablet 0.1 mg (0.1 mg Oral Given 09/25/24951) folic acid (Folvite) tablet 1 mg (1 mg Oral Given 09/25/24857) guaiFENesin (Mucinex) 12 hr tablet 600 mg (600 mg Oral Given 09/25/24857) levothyroxine (Synthroid, Levoxyl) tablet 75 mcg (75 mcg Oral Given 09/25/24951) pravastatin (Pravachol) tablet 40 mg (40 mg Oral Given 2/11/25 2127) pantoprazole (ProtoNix) EC tablet 40 mg (40 mg Oral Given 09/25/24 0859) ipratropium-albuterol (Duo-Neb) 0.5-2.5 mg/3 mL nebulizer solution 3 mL (3 mL Nebulization Given 09/25/24 0757) busPIRone (Buspar) tablet 10 mg (10 mg Oral Given 09/25/24 0858) pregabalin (Lyrica) capsule 150 mg (150 mg Oral Given 09/25/24 0858) risperiDONE (RisperDAL) tablet 0.5 mg (0.5 mg Oral Given 09/25/24 0859) magnesium sulfate IVPB premix 2,000 mg (2,000 mg IntraVENous New Bag 09/25/24 1002) sodium chloride 0.9 % bolus (0 mL IntraVENous Stopped 09/23/24 1227) cefTRIAXone (Rocephin) 1,000 mg in sodium chloride 0.9 % 50 mL IVPB Mini-Bag Plus (0 mg IntraVENous Stopped 09/23/24 1233) azithromycin (Zithromax) 500 mg in sodium chloride 0.9 % 250 mL IVPB (ADD-[place]) (0 mg IntraVENous Stopped 09/23/24 1356) sodium chloride 0.9 % bolus 1,000 mL (0 mL IntraVENous Stopped 09/23/24 1254) ibuprofen tablet 400 mg (400 mg Oral Given 09/24/24 0825) potassium chloride CR (Klor-Con M10) ER tablet 40 mEq (40 mEq Oral Given 09/24/24 1755) PROCEDURES: Unless otherwise noted below, none Procedures FINAL IMPRESSION 1. Pneumonia due to organism 2. Fall, initial encounter DISPOSITION Observation 09/23/2024 02:45:10 PM PATIENT REFERRED TO: No follow-up provider specified. DISCHARGE MEDICATIONS: Current Discharge Medication List (Comment: Please note this report has been produced using speech recognition software and may contain errors related to that system including errors in grammar, punctuation, and spelling, as well as words and phrases that may be inappropriate. If there are any questions or concerns please feel free to contact the dictating provider for clarification.) Anitra Villatoro MD (electronically signed) Emergency Medicine Provider Anitra Villatoro MD Resident 09/25/24 1015 Cosigned by Muna Edmonds MD at 09/25/2024 5:57 PM EST [facility] 09-23-2024 Physician Emergency department Note Emergency Department Encounter [facility] EMERGENCY DEPT Patient: Andre Blanca : 1950 Date of Evaluation: 09/23/2024 ED Supervising Physician: Muna Edmonds MD I personally evaluated IVAN Wheat and made/approved the management plan and take responsibility for the patient management. This will serve as my Supervisory note and shared attestation. I did perform a substantive portion of the visit including all aspects of the Medical Decision Making. I wore appropriate PPE for the entirety of this encounter. In brief, Andre Blanca is a 74 y.o. that presents to the emergency department as a level 3 trauma activation after a fall. Reportedly fell at her nursing facility today with a witnessed fall and was found to be altered. She does take Plavix. Patient states that she has been feeling ill for the last couple of days. Endorses some shortness of breath and a cough. Complaining of some pain to her left hip and has a history of a hip replacement. Focused exam: Chronically appearing female in no acute distress. Vital signs reviewed and notable for hypotension and hypoxia requiring supplemental oxygen. Lungs are rhonchorous bilaterally worse on the right compared to the left. Some mild increased work of breathing with speaking full sentences. Abdomen soft and nontender to palpation. She has full range of motion of her left lower extremity and right lower extremity. No obvious signs of trauma to the extremities. Brief ED course/MDM: 74-year-old female present emergency department today as a level 3 trauma activation after a fall. She is hypotensive upon arrival and tachypneic and hypoxic. She had a witnessed fall at her nursing facility but has been sick over the last few days. I think is more likely infectious causing her confusion and her hypoxia rather than from the traumatic injury however we will send for scans. Labs are also done here in the emergency department. She was fluid resuscitated in the trauma bay. CT scan of her head does not show any acute findings. Chest x-ray that was done in the trauma bay does not show a right-sided pneumonia. X-ray of her pelvis does not show any acute findings per my interpretation. CT scan of her head and C-spine is unremarkable. Hide CT scan of her chest does show this right sided mid and lower lung pneumonia. Started on antibiotics for this and plan will be to admit the patient for hypoxia and confusion secondary to pneumonia. Her blood pressures continues to be soft. We will give her a second liter of fluids to see if she is fluid responsive versus requiring pressors. Her pressures did finally settle down and did not require pressors. Patient will be admitted for her pneumonia. Admitted in stable but guarded condition. CRITICAL CARE TIME Total Critical Care time was 45 minutes, excluding separately reportable procedures. There was a high probability of clinically significant/life threatening deterioration in the patient's condition which required my urgent intervention. Diagnostics interpreted by me: chest x-ray, pelvis x-ray I personally discussed the patient's management with other clinicians: All diagnostic, treatment, and disposition decisions were made by myself in conjunction with the Resident. I also supervised beck portions of any procedures performed by the Resident. For all further details of the patient's emergency department visit, please see their documentation. (Comment: Please note this report has been produced using speech recognition software and may contain errors related to that system including errors in grammar, punctuation, and spelling, as well as words and phrases that may be inappropriate. If there are any questions or concerns please feel free to contact the dictating provider for clarification.) Muna Edmonds MD [employer] Muna Edmonds MD 09/23/24 1507 Muna Edmonds MD 09/23/24 1507 [employer] Phone: 06-18-2024 Miscellaneous Notes Ok to have Andre come back to discuss next steps with right hip, will discuss MRI. documented in this encounter [facility] 06-18-2024 Progress note Formatting of t his note might be different from the original. Ok to have Andre come back to discuss next steps with right hip, will discuss MRI. [facility] 09-13-2023 History of Presen t illness Narrative Images from the original note were not included. [facility] [address] [place] [address] Dept: [phone] Dept 09/13/2023 Chief Complaint Patient presents with Follow-up FU right hip Subjective: Andre is a 73 y.o. female who presents for repeat evaluation of the right hip. At the last visit we initiated non-operative treatment consisting of... ~ Activity modification ~ Tylenol ~ Will obtain ESR/CRP ~ HEP, possible formal PT after New Year The patient reports the treatment has not provided significant prolonged relief. Hard time ambulating and severe pain in groin. Review of Systems Constitutional: Negative for activity change. HENT: Negative for congestion. Cardiovascular: Negative for leg swelling. Musculoskeletal: Positive for arthralgias, gait problem and joint swelling. Skin: Negative for wound. Neurological: Negative for weakness. Past Medical History: Diagnosis Date Acute kidney failure ([facility]) Acute respiratory failure ([facility]) Acute venous embolism and thrombosis of deep vessels of distal lower extremity, unspecified laterality ([facility]) Aftercare following other joint replacement surgery Bipolar 1 disorder ([facility]) Cerebral artery occlusion Cerebral artery occlusion with cerebral infarction ([facility]) Chest pain COPD (chronic obstructive pulmonary disease) ([facility]) COVID-19 Depression Difficulty walking Displaced fracture of acromial process right shoulder squela DVT (deep venous thrombosis) ([facility]) Dysarthria and anarthria Dysphagia, oropharyngeal phase Fibromyalgia History of left shoulder replacement Hyperlipidemia Hyperlipidemia Hyperosmolality and hypernatremia Hypokalemia Hypothyroid Hypothyroid Hypoxia IBS (irritable bowel syndrome) IBS (irritable bowel syndrome) Knee pain, right Lack of coordination Left humeral fracture Left shoulder pain MDD (major depressive disorder) Migraine Need for assistance with personal care Obesity RAULITO (obstructive sleep apnea) RAULITO (obstructive sleep apnea) Other symbolic dysfunctions Personal history of transient ischemic attack (TIA), and cerebral infarction without residual deficits Pneumonitis Reduced mobility Repeated falls Syncope Syncope and collapse TIA (transient ischemic attack) Weakness Past Surgical History: Procedure Laterality Date ARM SURGERY (HISTORICAL) Right ARM SURGERY (HISTORICAL) N/A CHOLECYSTECTOMY HYSTERECTOMY OTHER SURGICAL HISTORY 05/31/2022 Left femoral endoprosthetic replacement OTHER SURGICAL HISTORY Left 06/01/2022 ORIF left olecranon TOTAL KNEE ARTHROPLASTY Right 01/12/2023 Social History Socioeconomic History Marital status: Spouse name: Not on file Number of children: Not on file Years of education: Not on file Highest education level: Not on file Occupational History Not on file Tobacco Use Smoking status: Never Passive exposure: Never Smokeless tobacco: Never Vaping Use Vaping Use: Never used Substance and Sexual Activity Alcohol use: Not Currently Drug use: Never Sexual activity: Not Currently Other Topics Concern Not on file Social History Narrative Merged History Encounter Social Determinants of Health Financial Resource Strain: Not on file Food Insecurity: No Food Insecurity (07/24/2023) Hunger Vital Sign Worried About Running Out of Food in the Last Year: Never true Ran Out of Food in the Last Year: Never true Transportation Needs: Patient Declined (07/24/2023) PRAPARE - Transportation Lack of Transportation (Medical): Patient declined Lack of Transportation (Non-Medical): Patient declined Physical Activity: Inactive (07/24/2023) Exercise Vital Sign Days of Exercise per Week: 0 days Minutes of Exercise per Session: 0 min Stress: Stress Concern Present (07/24/2023) [place] [employer] - Occupational Stress Questionnaire Feeling of Stress : Very much Social Connections: Unknown (07/24/2023) Social Connection and Isolation Panel [NHANES] Frequency of Communication with Friends and Family: Patient declined Frequency of Social Gatherings with Friends and Family: Patient declined Attends Yarsanism Services: Never Active Member of Clubs or Organizations: No Attends Club or Organization Meetings: Never Marital Status: Patient declined Intimate Partner Violence: Not on file Housing Stability: Unknown (07/24/2023) Housing Stability Vital Sign Unable to Pay for Housing in the Last Year: No Number of Places Lived in the Last Year: Not on file Unstable Housing in the Last Year: No Family History Problem Relation Name Age of Onset Emphysema Father Alcohol abuse Mother Allergies Allergen Reactions Butorphanol Compazine [Prochlorperazine] Hydrocodone Hydromorphone Salicylamide Sulfamethoxazole-Trimethoprim Other reaction(s): Other (See Comments) Aspirin Nausea And Vomiting Ibuprofen Nausea And Vomiting Other reaction(s): NAUSEA,VOMITING, tinnitus, NAUSEA,VOMITING, tinnitus Sumatriptan Nausea And Vomiting Objective: Ht 5' 7" (1.702 m) Wt 180 lb (81.6 kg) BMI 28.19 kg/m Pt is a WD/WN female in no acute distress. She appears her stated age. Mood and affect are normal. She is A&O x 3. Gait: antalgic. RIGHT HIP: Skin is warm, dry and intact. There are no rashes, lesions, or obvious scars. No tenderness to palpation. Greater trochanter is not tender. ROM shows flexion 90, IR 30, ER 40, with pain. [facility] exam: positive. +PF/DF/EHL. SILT distally. DP/PT palpable. Straight leg raise negative for inciting radicular symptoms. The patient does have a leg length discrepancy and measures 1cm long on the right. Radiology Findings: 09/13/23 images obtained by outside radiology department independently reviewed by myself today in office. XRAYS: Indication: Right hip pain Exam Ordered: Radiographs include an anteroposterior pelvis, an anteroposterior, and lateral view of the proximal femur including the hip joint. Details of Examination: Exam shows no evidence of joint space narrowing or degenerative changes. No fractures or dislocation identified. No obvious osseous abnormalities. No other significant findings are noted. Impression: Normal exam, right hip Assessment 1. Right hip pain Plan The above findings were discussed with patient length. We discussed the options of conservative versus possible surgical management of their hip. At this point considering the patient's level of activity, pain, and radiographic findings, I recommended continued conservative management. This treatment will consist of... ~ Activity modification ~ Tylenol ~ Physical therapy (home exercise program provided) ~ MRI without arthrogram will be obtained due to failure of non-op treatment at this point. Will discuss next steps after test is completed. This involves evaluating for possible AVN or more advanced arthritis changes not seen on X-ray. Will be helpful to determine next steps in treatment. Will continue to evaluate low back symptoms with possible radicular pain. However, she does have pain in the hip with exam testing. The risks, benefits, and alternatives to all of the treatment options were thoroughly explained. Patient will call us with any questions or concerns regarding this plan or if any significant issues arise. Follow-up after MRI, if normal, will consider sending to spine team for eval. Electronically signed by Almas Laureano M.D. 09/13/2023 at 8:35 AM. documented in this encounter [facility] 05-31-2023 History of Presen t illness Narrative [facility] [address] [place] [address] Dept: [phone] Dept 05/31/2023 Chief Complaint Patient presents with Follow-up Rt TKA 6. Subjective: Andre is approximately 4 month(s) out from a right total knee arthroplasty. Pain is moderate. Patient has noted issues with: nothing out of the ordinary. Assistive device for ambulation: wheelchair. Pre-operative symptoms are improved. The patient is able to walk 1 block and is not able to use stairs. Patient denies calf pain or unusual swelling. ED visit since surgery: No Hospital re-admit since surgery: No Complication since surgery: No Review of Systems Constitutional: Negative for activity change. HENT: Negative for congestion. Cardiovascular: Negative for leg swelling. Musculoskeletal: Positive for arthralgias, gait problem and joint swelling. Skin: Negative for wound. Neurological: Negative for weakness. Objective: Ht 5' 7" (1.702 m) Wt 180 lb (81.6 kg) BMI 28.19 kg/m Andre overall looks well and comfortable. Gait: patient in a wheelchair for this visit . Knee incision(s): healing well. Swelling is mild. Knee ROM shows flexion 120, extension 0. The knee is stable to varus/valgus stress <6 degrees. No evidence of DVT seen on physical exam. RIGHT HIP: Skin is warm, dry and intact. There are no rashes, lesions, or obvious scars. No tenderness to palpation. Greater trochanter is not tender. ROM shows flexion 90, IR 30, ER 40, with pain. [facility] exam: positive. +PF/DF/EHL. SILT distally. DP/PT palpable. Straight leg raise negative for inciting radicular symptoms. The patient does have a leg length discrepancy and measures 1cm short on the right. Ortho Exam XRAYS: 05/31/23 images obtained by outside radiology department independently reviewed by myself today in office. Indication: Status post right total knee arthroplasty. Exam Ordered: Radiographs taken today include an AP standing, lateral, and sunrise view of the right knee. Details of Examination: Exam shows a well fixed, well positioned total knee arthroplasty with no evidence of wear, osteolysis, fracture, or loosening. Patella appears to be tracking well within the trochlear groove of the prosthesis. Impression: Status post right total knee arthroplasty, implant in good position with no abnormality. Assessment 1. Status post total right knee replacement 2. Primary osteoarthritis of right knee Plan Andre will continue with WBAT and therapy. I would like to check the patient back in 8 month(s) with new knee X-rays. We reviewed signs and symptoms of common post-operative issues including infection. We reviewed the need for prophylaxis with dental or other procedures. Andre unfortunately stopped therapy and has regressed. She doesn't have any overt signs of infection. Knee is not very symptomatic on exam. Will need to monitor for possible issues related on this right side to the back potentially causing radicular pain. Discussed full recovery can take a full year, plan below... This treatment will consist of... ~ Activity modification ~ Tylenol ~ Will obtain ESR/CRP ~ HEP, possible formal PT after New Year The risks, benefits, and alternatives to all of the treatment options were thoroughly explained. Patient will call us with any questions or concerns regarding this plan or if any significant issues arise. Electronically signed by Almas Laureano M.D. 05/31/2023 at 1:22 PM. documented in this encounter [facility] 02-08-2023 History of Presen t illness Narrative [facility] [address] [facility] [address] Dept: [phone] Dept 02/08/2023 Chief Complaint Patient presents with Post-op IPO: Rt TKA 01.12.2023 Subjective: Andre is approximately 4 week(s) out from a right total knee arthroplasty. Pain is severe. Patient has noted issues with: nothing out of the ordinary. Assistive device for ambulation: wheelchair. Pre-operative symptoms are improved. The patient is able to walk 0 blocks and is not able to use stairs. Patient denies calf pain or unusual swelling. ED visit since surgery: No Hospital re-admit since surgery: No Complication since surgery: No Review of Systems Constitutional: Negative for activity change. HENT: Negative for congestion. Cardiovascular: Negative for leg swelling. Musculoskeletal: Positive for arthralgias, gait problem and joint swelling. Skin: Negative for wound. Neurological: Negative for weakness. Objective: Ht 5' 7" (1.702 m) Wt 180 lb (81.6 kg) BMI 28.19 kg/m Andre overall looks well and comfortable. Gait: unable to walk. Knee incision(s): healing well, no drainage, no erythema. Swelling is moderate. Knee ROM shows flexion 105-110, extension 8-10 active, 4-5 passive. Effusion present. The knee is stable to varus/valgus stress <6 degrees. No evidence of DVT seen on physical exam. Negative Blaise's sign. No cords or calf tenderness.. Ortho Exam XRAYS: 02/08/2023 images obtained by outside radiology department independently reviewed by myself today in office. Indication: Status post right total knee arthroplasty. Exam Ordered: Radiographs taken today include an AP standing, lateral, and sunrise view of the right knee. Details of Examination: Exam shows a well fixed, well positioned total knee arthroplasty with no evidence of wear, osteolysis, fracture, or loosening. Patella appears to be tracking well within the trochlear groove of the prosthesis. Impression: Status post right total knee arthroplasty, implant in good position with no abnormality. Assessment 1. Primary osteoarthritis of right knee 2. S/P total knee arthroplasty, right Plan Right knee aspiration in office today for effusion, likely limiting some of her range of motion. Ice and compressive wrap encouraged. Andre will continue with WBAT and therapy. I would like to check the patient back in 3 month(s) with new knee X-rays. We reviewed signs and symptoms of common post-operative issues including infection. We reviewed the need for prophylaxis with dental or other procedures. She will call and return sooner for questions, issues, or concerns. Procedure Note: After risks and benefits of intra-articular aspiration of the knee were reviewed with the patient, she elected to proceed. After sterile alcohol prep, an 18g needle was used to aspirate, 0mL, dry tap from superolateral portal of the right knee. The patient tolerated the aspiration well. A band-aid was placed. Post-aspiration instructions were reviewed. Electronically signed by Abiola Connolly PA-C to Almas Laureano M.D. Hip and Knee Reconstruction [facility] 02/08/2023 at 1:20 PM. documented in this encounter [facility] 01-16-2023 Telephone encounter Note Spoke with Evelyn with Home care and gave advice per Abiola GÓMEZ response. [facility] 01-16-2023 Miscellaneous Notes Spoke with Evelyn with Home care and gave advice per Abiola GÓMEZ response. On and off throughout the entire and as needed for pain and swelling. Can go 20-30 minutes on, then off, every couple hours. Name of Caller: Glenis Contact Phone Number: [phone] Reason for call: Nurse Glenis asking for directives for Pt's Pyle Polar Ice Cube wrap for Pt's knee. Asking how many times per day it needs to be applied, how long, etc. Please call Glenis to advise. Office Name: Dr Laureano documented in this encounter [facility] 01-16-2023 Telephone encounter Note On and off throughout the entire and as needed for pain and swelling. Can go 20-30 minutes on, then off, every couple hours. [facility] 01-16-2023 Telephone encounter Note Name of Caller: Glenis Contact Phone Number: [phone] Reason for call: Nurse Glenis asking for directives for Pt's Pyle Polar Ice Cube wrap for Pt's knee. Asking how many times per day it needs to be applied, how long, etc. Please call Glenis to advise. Office Name: Dr Laureano T [facility] 01-13-2023 History of Presen t illness Narrative Acute Pain Service Follow up with In-Patient Name: Andre Blanca : 1950 (Age-72 y.o.) Date: 01/13/2023 Diagnosis: Acute Post-Op Pain Post Op Day - 1 Information provided by:Patient Symptoms of toxicity Following Symptoms are Absent- Increase in Pain - redness, Swelling, Pain, Discharge at the catheter site, Dizziness, Light headedness, Blurred vision, Ringing, Buzzing in your ears, Metal taste in your mouth, Numbness and or tingling around the mouth, fingers or toes, Drowsiness, Confusion, nausea, vomiting, paresthesia, and weakness Pain Score -8 Pain Rating: Not Tolerable Block Location:Adductor Canal Catheter Type: OnQ Quickbloc Catheter over Needle. Current Infusion Rate: 4 cc/hr The above indicated infusion rate has been set either by the patient/provider. Are you taking supplemental pain relievers Yes Overall satisfaction with pain control: Not Satisfied Plan: Discontinue catheter and reblock using exparel. Plan discussed with patient and Dr Laureano. All agree with plan. Catheter Discontinued: Yes Catheter removed by Jared Clark CRNA Electronically signed by: AJAY CLARK APRN - CRNA Date: 01/13/2023 at 12:24 PM Images from the original note were not included. Hospitalist Progress Note 01/13/[id number]: Please page me ([phone]) for patient care issues. [phone]: Please page [facility] [place] any issues. Subjective: Admit Date: 01/12/2023 PCP: Kianna Izquierdo Room#: B1-163/B1-163 A Interval History: No overnight issues. Denies chest pain, sob, abdominal pain, nausea, vomiting, diarrhea, constipation, fevers, or chills. Adult diet Regular @[id number]@ 24HR INTAKE/OUTPUT: Intake/Output Summary (Last 24 hours) at 01/13/2023 1120 Last data filed at 01/12/2023 1306 Gross per 24 hour Intake 500 ml Output 125 ml Net 375 ml Past Medical History: Past Medical History: Diagnosis Date Acute kidney failure (HCC) Acute respiratory failure (HCC) Acute venous embolism and thrombosis of deep vessels of distal lower extremity, unspecified laterality (HCC) Aftercare following other joint replacement surgery Bipolar 1 disorder (HCC) Cerebral artery occlusion Cerebral artery occlusion with cerebral infarction (HCC) Chest pain COPD (chronic obstructive pulmonary disease) (HCC) COVID-19 Depression Difficulty walking Displaced fracture of acromial process right shoulder squela DVT (deep venous thrombosis) (HCC) Dysarthria and anarthria Dysphagia, oropharyngeal phase Fibromyalgia History of left shoulder replacement Hyperlipidemia Hyperlipidemia Hyperosmolality and hypernatremia Hypokalemia Hypothyroid Hypothyroid Hypoxia IBS (irritable bowel syndrome) IBS (irritable bowel syndrome) Knee pain, right Lack of coordination Left humeral fracture Left shoulder pain MDD (major depressive disorder) Migraine Need for assistance with personal care Obesity RAULITO (obstructive sleep apnea) RAULITO (obstructive sleep apnea) Other symbolic dysfunctions Personal history of transient ischemic attack (TIA), and cerebral infarction without residual deficits Pneumonitis Reduced mobility Repeated falls Syncope Syncope and collapse TIA (transient ischemic attack) Weakness LABS: CBC: Recent Labs 01/13/23 0451 HGB 10.9* HCT 33.6* BMP: Recent Labs 01/13/23 0451 NA 136 K 3.9 CL 101 CO2 29 BUN 11 CREATININE 0.62 GLUCOSE 150* CALCIUM 8.5 ANIONGAP 6 LIVER PROFILE:No results for input(s): AST, ALT, BILITOT, ALKPHOS, PROT in the last 72 hours. No lab exists for component: LABALBU PT/INR: No results for input(s): PROTIME, INR in the last 72 hours. CARDIAC ENZYMES: No results for input(s): TROPONINI in the last 72 hours. Procalcitonin: No results found for: PROCAL COVID-19 PCR: No results for input(s): COVID19 in the last 72 hours. Objective: Vitals: BP 131/69 Pulse 78 Temp 37.1 C (98.7 F) (Temporal) Resp 18 SpO2 96% Pulse Ox: SpO2 Av.6 % Min: 93 % Max: 100 % Supplemental O2: O2 Flow Rate (L/min): 2 L/min General appearance: No apparent distress, appears stated age, HEENT: Eyes: No scleral icterus Oral: Tongue is semi-moist Cardiovascular: S1/S2 heard, RRR Respiratory: Clear to auscultation bilaterally Abdomen: Soft, non-tender, non-distended bowel sounds positive Musculoskeletal: No obvious deformities seen Skin: No visible rashes or lesions. Medications: lactated Ringer's, 50 mL/hr, Last Rate: Stopped (01/12/23 1306) ropivacaine, 500 mL, Last Rate: 500 mL (01/12/23 1315) sodium chloride, 125 mL/hr, Last Rate: 125 mL/hr (01/12/23 1608) busPIRone, 10 mg, Oral, TID carBAMazepine, 200 mg, Oral, TID enoxaparin, 40 mg, SubCUTAneous, Daily famotidine, 20 mg, Oral, BID fludrocortisone, 0.1 mg, Oral, Daily levothyroxine, 150 mcg, Oral, Daily Melatonin, 10 mg, Oral, Nightly midodrine, 5 mg, Oral, TID mirtazapine, 15 mg, Oral, Daily pravastatin, 40 mg, Oral, Daily pregabalin, 150 mg, Oral, BID risperiDONE, 0.5 mg, Oral, BID sodium chloride 0.9%, 10 mL, IntraVENous, 2 times per day traMADol, 50 mg, Oral, q6h traZODone, 50 mg, Oral, Nightly venlafaxine XR, 75 mg, Oral, Daily Assessment # Right knee degenerative arthritis - S/P Right Total Knee Arthroplasty, Kinematic Alignment on 01/[address] Laureano. Ortho managing # Hx of DVT (also stated had PE as well) -started on lovenox subcutaneous per Ortho # Hx of depression/Bipolar 1 disorder # COPD - stable # Hx of CVA # Hx of Fibromyalgia # Hx of IBS # HLD # Chronic hypothyroidism # Hx of RAULITO # Hx of Migraines Plan Vitals this am looks good and also labs look fine. Patient okay for discharge back to ECF from medicine standpoint. Started on lovenox subcutaneous for DVT proph per Ortho. Will continue to follow if still here. Total time spent (which include face to face and non face to face encounters) : 26 minutes Toxic drug monitoring/narrow therapeutic index drug monitoring if any: # Drug name : # Route administered : # Method of monitoring : Extended Emergency Contact Information Primary Emergency Contact: Giana Blanca Relation: Child CRISTINA ZALDIVAR MD Division of Hospitalist Medicine Inpatient Medical Services[place] [place] [place]AG[place]: OY LX Therapies chat Physical Therapy Facility/Department: [facility] Physical Therapy Daily Treatment Note NAME: Andre Blanca : 1950 Date of Service: 01/13/2023 Discharge Recommendations: ECF with PT PT Equipment Recommendations Equipment Needed: Yes Mobility Devices: Walker Walker: Rolling Assessment Requires PT Follow-Up: Yes Assessment: Pt presents with decreased functional mobility. Pt requires min A x 1 for all aspectds of bed mobility, mod a x 1 for multiple transfers due to only being able to stand for 5 seconds at a time. Pt unable to initiate any side steps this session. Pt very limited by pain and requires extended time to complete. Pt is expected to benefit from continued therapy in order to increase overall independence. Patient Diagnosis(es): The encounter diagnosis was Primary osteoarthritis of right knee. has a past medical history of Acute kidney failure (HCC), Acute respiratory failure (HCC), Acute venous embolism and thrombosis of deep vessels of distal lower extremity, unspecified laterality (HCC), Aftercare following other joint replacement surgery, Bipolar 1 disorder (HCC), Cerebral artery occlusion, Cerebral artery occlusion with cerebral infarction ([facility]), Chest pain, COPD (chronic obstructive pulmonary disease) ([facility]), COVID-19, Depression, Difficulty walking, Displaced fracture of acromial process, DVT (deep venous thrombosis) ([facility]), Dysarthria and anarthria, Dysphagia, oropharyngeal phase, Fibromyalgia, History of left shoulder replacement, Hyperlipidemia, Hyperlipidemia, Hyperosmolality and hypernatremia, Hypokalemia, Hypothyroid, Hypothyroid, Hypoxia, IBS (irritable bowel syndrome), IBS (irritable bowel syndrome), Knee pain, right, Lack of coordination, Left humeral fracture, Left shoulder pain, MDD (major depressive disorder), Migraine, Need for assistance with personal care, Obesity, RAULITO (obstructive sleep apnea), RAULITO (obstructive sleep apnea), Other symbolic dysfunctions, Personal history of transient ischemic attack (TIA), and cerebral infarction without residual deficits, Pneumonitis, Reduced mobility, Repeated falls, Syncope, Syncope and collapse, TIA (transient ischemic attack), and Weakness. has a past surgical history that includes Cholecystectomy; Other surgical history (05/31/2022); Hysterectomy; Other surgical history (Left, 06/01/2022); Arm Surgery (Right); Arm Surgery (N/A); and Total knee arthroplasty (Right, 01/12/2023). Restrictions Restrictions/Precautions Restrictions/Precautions: Weight Bearing, General Precautions, Surgical Protocols, ROM Restrictions, Fall Risk Required Braces or Orthoses?: No Lower Extremity Weight Bearing Restrictions Right Lower Extremity Weight Bearing: Weight Bearing As Tolerated Position Activity Restriction Other position/activity restrictions: s/p R TKA with Dr. Laureano. Pt is now WBAT with no forced knee flexion. Subjective General Chart Reviewed: Yes Patient Assessed for Rehabilitation Services: Yes Family / Caregiver Present: No Follows Commands: Within Functional Limits General Comment Comments: Per RN okay to see. Subjective Subjective: pt is agreeable to therapy but very painful Patient Stated Goal: To walk better Pain Assessment Pain Assessment: (c/o of increased pain with mobility, yelling out but didnt rate) Objective Bed mobility Rolling to Left: Minimal assistance (x 2 for use of bed nugent) Supine to Sit: Minimal assistance Sit to Supine: Minimal assistance Scooting: Minimal assistance (to EOB with use of draw pads) Comment: Denied dizziness. Pt verbalizing pain throughout entire mobility. Pt requires min A x 1 for R LE in and OOB. Extended time to complete. Once EOB, pt able to maintain at SBA. Pt completed rolling in order to get on and off bed nugent. Transfers Sit to Stand: Moderate Assistance (to FWW) Stand to sit: Moderate Assistance Comment: Denied dizziness. Pt completed x 6 STS from EOB, each requiring mod A x 1 for trunk elevation. Pt unable to stand for more than 5 seconds at a time due to increased pain with minimal movements. Pt with pain ant/post of knee. Unable to initiate any side steps at this time and requires extended time to complete with seated rest breaks. Balance Posture: Fair Sitting - Static: Good Sitting - Dynamic: Good Standing - Static: Poor Standing - Dynamic: Poor, - Plan # of visits: 3 visits Safety Safety Devices Safety Devices in Place: Yes Type of Devices: Call light within reach, All fall risk precautions in place, Gait belt, Patient at risk for falls, Left in bed, Nurse notified, No alarms engaged upon entry into room AM-PAC Score AM-PAC Inpatient Mobility Raw Score (No Stairs) : 9 Goals Encounter Problems Encounter Problems (Active) Exercise Patient will complete lower extremity exercises for 1-2 sets / 5-10 reps in order to improve strength and activity tolerance for mobility. (Not Addressed) Start: 01/12/23 Expected End: 01/16/23 Mobility Patient will ambulate 50 feet with SBA and rolling walker in order to improve safety and independence with mobility. (Not Addressed) Start: 01/12/23 Expected End: 01/16/23 Pain - Adult Transfers Patient will perform bed mobility with SBA in order to improve independence and prepare for out of bed mobility. (Progressing) Start: 01/12/23 Expected End: 01/16/23 Patient will complete functional transfer with rolling walker with SBA in order to prepare for ambulation. (Progressing) Start: 01/12/23 Expected End: 01/16/23 Education Education Given To: Patient Education Provided: Goals, PT Role, Plan of Care, Discharge recommendations, Precautions, Energy Conservation, Transfer Training, General Safety, Home Exercise Program, Equipment, Functional Mobility Training, Weight-bearing Education, Injury Prevention Education Method: Verbal, Demonstration, Teach Back Barriers to Learning: None Education Outcome: Verbalized understanding, Continued education needed, Demonstrated understanding Therapy Time Individual Co-treatment Time In 0857 Time Out 0923 Minutes 26 Timed Code Treatment Minutes: 26 Minutes (1 ther act, 1 gait) Seda Bradford, TENTER Occupational Therapy Facility/Department: [facility] Occupational Therapy Treatment NAME: Andre Blanca : 1950 Date of Service: 01/13/2023 Discharge Recommendations: Custodial Facility Assessment REQUIRES OT FOLLOW-UP: Yes Performance deficits / Impairments: Decreased ADL status, Decreased functional mobility , Decreased endurance, Decreased balance, Decreased strength Assessment: Pt tolerated session poor, limited heavily by pain. Pt completed supine to partial sit at EOB x4 today with Min A. Once pt BLE mental health tech EOB and in partial sitting position, pt would quickly return herself to supine and yell out in pain. Pt not agreeable to continue therapy. Pt required Max Ax2 with draw pads to scoot to HOB, and SBA to roll. Pt would benefit from continued OT to improve activity tolerance, balance, and strength needed for increased indep. Pt is recommended for SNF at D/C Patient Diagnosis(es): The encounter diagnosis was Primary osteoarthritis of right knee. has a past medical history of Acute kidney failure ([facility]), Acute respiratory failure ([facility]), Acute venous embolism and thrombosis of deep vessels of distal lower extremity, unspecified laterality ([facility]), Aftercare following other joint replacement surgery, Bipolar 1 disorder ([facility]), Cerebral artery occlusion, Cerebral artery occlusion with cerebral infarction ([facility]), Chest pain, COPD (chronic obstructive pulmonary disease) ([facility]), COVID-19, Depression, Difficulty walking, Displaced fracture of acromial process, DVT (deep venous thrombosis) ([facility]), Dysarthria and anarthria, Dysphagia, oropharyngeal phase, Fibromyalgia, History of left shoulder replacement, Hyperlipidemia, Hyperlipidemia, Hyperosmolality and hypernatremia, Hypokalemia, Hypothyroid, Hypothyroid, Hypoxia, IBS (irritable bowel syndrome), IBS (irritable bowel syndrome), Knee pain, right, Lack of coordination, Left humeral fracture, Left shoulder pain, MDD (major depressive disorder), Migraine, Need for assistance with personal care, Obesity, RAULITO (obstructive sleep apnea), RAULITO (obstructive sleep apnea), Other symbolic dysfunctions, Personal history of transient ischemic attack (TIA), and cerebral infarction without residual deficits, Pneumonitis, Reduced mobility, Repeated falls, Syncope, Syncope and collapse, TIA (transient ischemic attack), and Weakness. has a past surgical history that includes Cholecystectomy; Other surgical history (05/31/2022); Hysterectomy; Other surgical history (Left, 06/01/2022); Arm Surgery (Right); Arm Surgery (N/A); and Total knee arthroplasty (Right, 01/12/2023). Restrictions Restrictions/Precautions Restrictions/Precautions: Weight Bearing, General Precautions, Surgical Protocols, ROM Restrictions, Fall Risk Required Braces or Orthoses?: No Lower Extremity Weight Bearing Restrictions Right Lower Extremity Weight Bearing: Weight Bearing As Tolerated Position Activity Restriction Other position/activity restrictions: s/p R TKA with Dr. Laureano. Pt is now WBAT with no forced knee flexion. Cognition/Orientation Overall Cognitive Status: WFL Cognition Comment: increased anxiety Overall Orientation Status: Within Functional Limits Subjective Subjective Subjective: Pt supine in bed, agreeable to OT tx General Comments Comments: Per RN, pt OK to see. Patient Stated Goal: to get back home Pain Assessment Pain Assessment: 0-10 Pain Score: 9 (Pt reporting 9/10 pain pre/post session however had been medicated by RN. Pt agreeable to attempt to get to EOB) Vital Signs BP: 131/69 Objective Grooming/Oral Hygiene Skilled Clinical Factors: not agreeable Balance Sitting Balance: Unable to assess(comment) (Pt would come partially to EOB then quickly return herself to supine due to pain) Standing Balance: Unable to assess(comment) Bed mobility Rolling to Right: Stand by assistance Supine to Sit: Minimal assistance Sit to Supine: Unable to assess Scooting: Maximal assistance, 2 Person assistance Comment: Pt ed on WB and ROM. Pt agreeable to attempting to get to EOB. Pt came to partial upright seated position at EOB x4 with BLE off of EOB, then would yell out in pain and quickly return to supine. Pt required assist to move BLE to EOB, and would yell out in pain when moving sx and non sx leg. Pt completed bed mobility x4, then stated she would not attempt further to stay at EOB due to pain. Unable to encourage. Pt required Max Ax2 with draw pad to scoot to EOB. Pt rolled to the R for draw pad placement with SBA Transfers Sit to stand: Unable to assess Stand to sit: Unable to assess Transfer Comments: Pt not agreeable to attempt due to knee pain Plan Times per Week: 2 visits Current Treatment Recommendations: Strengthening, Balance Training, Functional Mobility Training, Endurance Training, Pain Management, Safety Education & Training, Self-Care / ADL, Positioning, Equipment Evaluation, Education, & procurement, Patient/Caregiver Education & Training Plan Comment: Continue OT tx per POC Safety Safety Devices in place: Yes Type of devices: All fall risk precautions in place, Left in bed, Call light within reach, Nurse notified, Patient at risk for falls, No alarms engaged upon entry into room Restraints Initially in place: No AM-PAC Score AM-PAC Inpatient Daily Activity Raw Score: 19 ADL Inpatient CMS G-Code Modifier: CK Goals Encounter Problems Encounter Problems (Active) Balance Patient will maintain dynamic standing balance for 3 minutes with supervision in order to demonstrate decreased risk of falling. (Not Addressed) Start: 01/12/23 Expected End: 01/15/23 Dressings Lower Extremities Patient will dress lower body with supervision (Not Addressed) Start: 01/12/23 Expected End: 01/15/23 Grooming Pt will perform sink level grooming tasks with supervision (Not Addressed) Start: 01/12/23 Expected End: 01/15/23 Mobility Pt will perform functional mobility and transfers with FWW and supervision (Slowly Progressing) Start: 01/12/23 Expected End: 01/15/23 Goal Note Bed mobility to initiate strength for transfers Toileting Patient will complete toileting tasks at standard toilet with supervision. (Not Addressed) Start: 01/12/23 Expected End: 01/15/23 Education Education Given To: Patient Education Provided: OT role, Plan of care, Precautions, Benefits of increasing activity level Education Provided Comments: bed mobility Education Method: Demonstration, Verbal, Teach Back Barriers to Learning: (pain) Education Outcome: Verbalized understanding, Demonstrated understanding, Continued education needed Therapy Time Individual Co-treatment Time In 0754 Time Out 0809 Minutes 15 Timed Code Treatment Minutes: 15 Minutes (1 Ther Act) SIMONA Drake Images from the original note were not included. Adult Hip and Knee Reconstruction Service Patient Name: Andre Blanca Date of : 1950 Date: 01/13/23 Assessment: s/p right TKA on 01/12/2023 doing well Plan: -WBAT -Keep knee straight -Abx x24hrs -PT/OT -DVT prophylaxis - lovenox/SCDs -Medicine c/s for medical management -F/u OP w/ Dr Laureano in 4 weeks, discharge instructions in AVS -Dc planning - home when clears PT and medically cleared Subjective: Pain bothersome this morning, tolerating diet, has been out of bed, voiding Pain has been under fair control. Complaints: Pain: Yes Fever/chills:No Drainage: No Numbness or tingling: No Swelling:Yes Andre has been up with PT: Yes Medications: busPIRone, 10 mg, Oral, TID carBAMazepine, 200 mg, Oral, TID enoxaparin, 40 mg, SubCUTAneous, Daily famotidine, 20 mg, Oral, BID fludrocortisone, 0.1 mg, Oral, Daily levothyroxine, 150 mcg, Oral, Daily Melatonin, 10 mg, Oral, Nightly midodrine, 5 mg, Oral, TID mirtazapine, 15 mg, Oral, Daily pravastatin, 40 mg, Oral, Daily pregabalin, 150 mg, Oral, BID risperiDONE, 0.5 mg, Oral, BID sodium chloride 0.9%, 10 mL, IntraVENous, 2 times per day traMADol, 50 mg, Oral, q6h traZODone, 50 mg, Oral, Nightly venlafaxine XR, 75 mg, Oral, Daily Physical Exam: Vitals: 01/13/23 0554 BP: 128/62 Pulse: 83 Resp: Temp: SpO2: Intake and Output Summary (Last 24 hours) at Date Time Intake/Output Summary (Last 24 hours) at 01/13/2023 0714 Last data filed at 01/12/2023 1306 Gross per 24 hour Intake 500 ml Output 125 ml Net 375 ml General appearance - no acute distress Musculoskeletal - Dressing C/D/I Fires quad/TA/EHL/GSC SILT SP/DP/TN WWP distally Calves soft, nontender bilateral Labs: CBC: Lab Results Component Value Date HGB 10.9 (L) 01/13/2023 BMP: Lab Results Component Value Date NA 136 01/13/2023 K 3.9 01/13/2023 CL 101 01/13/2023 CO2 29 01/13/2023 BUN 11 01/13/2023 CREATININE 0.62 01/13/2023 CALCIUM 8.5 01/13/2023 GLUCOSE 150 (H) 01/13/2023 PT/INR: No results found for: PROTIME, INR Rads: Radiological Procedure reviewed. Signed by: Eleazar Altman MD Physical Therapy Facility/Department: [facility] 1W Physical Therapy Initial Evaluation NAME: Andre Blanca : 1950 Date of Service: 01/12/2023 Discharge Recommendations: ECF with PT PT Equipment Recommendations Equipment Needed: Yes Mobility Devices: Walker Walker: Rolling Assessment Requires PT Follow-Up: Yes Assessment: Pt is s/p R TKA on 01/[address] Laureano and is now WBAT. Pt presents with the below deficits limiting her functional independence. On evaluation patient requires Ruby for bed mobility, transfers and ambulation with FWW. Pt demos decreased safety awareness with new post op precautions and assistive device use. Pt educated on gait mechanics and FWW use with fair carryover. Pt is limited by fatigue, weakness and pain in R knee. Pt expected to continue to benefit from skilled PT to increase functional independence and safety. Rec return to ECF with PT. Performance Deficits/Impairments: Decreased functional mobility , Decreased ADL status, Decreased ROM, Decreased strength, Decreased safe awareness, Decreased endurance, Decreased balance, Increased pain, Decreased posture Decision Making: Medium Complexity History: Pt is s/p R TKA on 01/[address] Laureano and is now WBAT. PMH listed below. Exam: AM-PAC Clinical Presentation: Pt has PMH as indicated below that contributes to her clinical presentation. At baseline kelsie lives at a nursing facility and requires SBA/supervision for mobility with use of rollator. Pt is currently below baseline and would benefit from PT at ECF. Barriers to Learning: none Barriers to Learning: none Activity Tolerance Activity Tolerance: Patient limited by fatigue, Patient limited by pain, Patient limited by endurance Patient Diagnosis(es): The encounter diagnosis was Primary osteoarthritis of right knee. has a past medical history of Acute kidney failure ([facility]), Acute respiratory failure ([facility]), Acute venous embolism and thrombosis of deep vessels of distal lower extremity, unspecified laterality ([facility]), Aftercare following other joint replacement surgery, Bipolar 1 disorder ([facility]), Cerebral artery occlusion, Cerebral artery occlusion with cerebral infarction ([facility]), Chest pain, COPD (chronic obstructive pulmonary disease) ([facility]), COVID-19, Depression, Difficulty walking, Displaced fracture of acromial process, DVT (deep venous thrombosis) ([facility]), Dysarthria and anarthria, Dysphagia, oropharyngeal phase, Fibromyalgia, History of left shoulder replacement, Hyperlipidemia, Hyperlipidemia, Hyperosmolality and hypernatremia, Hypokalemia, Hypothyroid, Hypothyroid, Hypoxia, IBS (irritable bowel syndrome), IBS (irritable bowel syndrome), Knee pain, right, Lack of coordination, Left humeral fracture, Left shoulder pain, MDD (major depressive disorder), Migraine, Need for assistance with personal care, Obesity, RAULITO (obstructive sleep apnea), RAULITO (obstructive sleep apnea), Other symbolic dysfunctions, Personal history of transient ischemic attack (TIA), and cerebral infarction without residual deficits, Pneumonitis, Reduced mobility, Repeated falls, Syncope, Syncope and collapse, TIA (transient ischemic attack), and Weakness. has a past surgical history that includes Cholecystectomy; Other surgical history (05/31/2022); Hysterectomy; Other surgical history (Left, 06/01/2022); Arm Surgery (Right); Arm Surgery (N/A); and Total knee arthroplasty (Right, 01/12/2023). Restrictions Restrictions/Precautions Restrictions/Precautions: Weight Bearing, General Precautions, Surgical Protocols, ROM Restrictions, Fall Risk Required Braces or Orthoses?: No Lower Extremity Weight Bearing Restrictions Right Lower Extremity Weight Bearing: Weight Bearing As Tolerated Position Activity Restriction Other position/activity restrictions: s/p R TKA with Dr. Laureano. Pt is now WBAT with no forced knee flexion. Vision/Hearing Vision: Within Functional Limits Vision Exceptions: Wears glasses at all times Hearing: Functional/adequate for paticipation in therapy Cognition/Orientation Overall Cognitive Status: WFL Overall Orientation Status: Within Functional Limits Subjective General Chart Reviewed: Yes Patient Assessed for Rehabilitation Services: Yes Family / Caregiver Present: No Follows Commands: Within Functional Limits General Comment Comments: Per RN patient okay for therapy Subjective Subjective: Pt lying in bed and agreeable to therapy Patient Stated Goal: To walk better Social/Functional History Social/Functional History Lives With: Other (comment) Type of Home: (SNF) Home Layout: One level Home Access: Level entry Bathroom Shower/Tub: Walk-in shower Bathroom Toilet: Handicap height Bathroom Equipment: Grab bars in shower, Grab bars around toilet Bathroom Accessibility: Walker accessible Home Equipment: Rollator, Wheelchair-manual Receives Help From: Facility staff ADL Assistance: Needs assistance (Pt reports that she is able to shower herself but requires assist for dressing at baseline) Ambulation Assistance: Needs assistance (limited mobility with a rollator. reports supervision-SBA) With device?: Yes Device: rollator Transfer Assistance: Needs assistance Active Entry Level Finance: No Additional Comments: Pt is a [facility] resident at the [facility]. Objective Observation/Palpation Posture: Fair Observation: sx dressing clean, dry, and intact; ambit intact Gross Assessment: Yes AROM: Generally decreased, functional PROM: Generally decreased, functional Strength: Generally decreased, functional Coordination: Generally decreased, functional Tone: Normal Sensation: Intact Bed mobility Supine to Sit: Stand by assistance Sit to Supine: Stand by assistance Scooting: Stand by assistance Comment: Pt educated on WBing and ROM restrictions prior to performing bed mobility. Pt able to perform bed mobility with SBA and slight additional time. HOB elevated ~ 45 degrees. Pt endorsed mild light headedness that did not improve throughout the session. Educated on no use of posterior knee pillow in supine to optimize healing. Transfers Sit to Stand: Minimal Assistance Stand to sit: Minimal Assistance Comment: from EOB to FWW with cues for hand placement and LE positioning. Denies dizziness in standing. No acute buckling in LEs. Ambulation Ambulation: Yes Ambulation 1 Surface 1: Level tile Device 1: Rolling walker Assistance 1: Minimum assistance Quality of Gait 1: slow eugenia, reciprocal stepping, uneven step length Distance (ft) 1: ~25'x2 Comments 1: Pt requires Ruby for steadiness and cues for correct step to sequencing. Pt denies dizziness initially and reports slight dizziness when returning to EOB. No acute buckling noted. Balance Posture: Fair Sitting - Static: Good Sitting - Dynamic: Good Standing - Static: Fair Standing - Dynamic: Fair, - Exercises Quad Sets: 1x5 RLE in supine with 5 sec hold Gluteal Sets: 1x5 with 5 second hold in supine Ankle Pumps: 1x10 R and L in supine Plan # of visits: 4 visits Current Treatment Recommendations: Strengthening, Balance Training, ROM, Functional Mobility Training, Transfer Training, Gait Training, Endurance Training, Pain Management, Home Exercise Program, Patient/Caregiver Education & Training, Safety Education & Training, Equipment Evaluation, Education, & procurement, Positioning Plan Comment: all goals and/or treatment were established in collaboration with patient Safety Safety Devices Safety Devices in Place: Yes Type of Devices: Call light within reach, All fall risk precautions in place, Gait belt, Patient at risk for falls, Left in bed, Nurse notified AM-PAC Score AM-PAC Inpatient Mobility Raw Score (No Stairs) : 15 Goals Encounter Problems Encounter Problems (Active) Exercise Patient will complete lower extremity exercises for 1-2 sets / 5-10 reps in order to improve strength and activity tolerance for mobility. Start: 01/12/23 Expected End: 01/16/23 Mobility Patient will ambulate 50 feet with SBA and rolling walker in order to improve safety and independence with mobility. Start: 01/12/23 Expected End: 01/16/23 Pain - Adult Transfers Patient will perform bed mobility with SBA in order to improve independence and prepare for out of bed mobility. Start: 01/12/23 Expected End: 01/16/23 Patient will complete functional transfer with rolling walker with SBA in order to prepare for ambulation. Start: 01/12/23 Expected End: 01/16/23 Education Education Given To: Patient Education Provided: Goals, PT Role, Plan of Care, Discharge recommendations, Precautions, Energy Conservation, Transfer Training, General Safety, Home Exercise Program, Gait Training, Equipment, Functional Mobility Training, Weight-bearing Education, Injury Prevention Education Method: Verbal, Demonstration, Teach Back Barriers to Learning: None Education Outcome: Verbalized understanding, Continued education needed Therapy Time Individual Co-treatment Time In 1536 Time Out 1552 Minutes 16 Maia Hernandez PT Occupational Therapy Facility/Department: 1W Occupational Therapy Initial Evaluation NAME: Andre Blanca : 1950 Date of Service: 01/12/2023 Discharge Recommendations: Custodial Facility Assessment REQUIRES OT FOLLOW-UP: Yes Performance deficits / Impairments: Decreased ADL status, Decreased functional mobility , Decreased endurance, Decreased balance, Decreased strength Assessment: Pt admitted to [facility] on 01/12 for an elective R TKA with Dr. Laureano. Pt is now WBAT with no forced flexion precautions. 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 Pt reports supervision-SBA for mobility and transfers at baseline. She showers herself but requires assist for dressing. Upon eval, pt required SBA for bed mobility, Min A for transfers and mobility, and SBA-Min A for ADLs. Pt is limited mostly by her pain and is expected to benefit from skilled OT services to return to PLOF. Recommend return to SNF. Prognosis: Good Decision Making: Medium Complexity Exam: AM-PAC Assistance / Modification: Min Activity Tolerance Activity Tolerance: Patient limited by pain, Patient limited by fatigue Patient Diagnosis(es): The encounter diagnosis was Primary osteoarthritis of right knee. has a past medical history of Acute kidney failure ([facility]), Acute respiratory failure ([facility]), Acute venous embolism and thrombosis of deep vessels of distal lower extremity, unspecified laterality ([facility]), Aftercare following other joint replacement surgery, Bipolar 1 disorder ([facility]), Cerebral artery occlusion, Cerebral artery occlusion with cerebral infarction ([facility]), Chest pain, COPD (chronic obstructive pulmonary disease) ([facility]), COVID-19, Depression, Difficulty walking, Displaced fracture of acromial process, DVT (deep venous thrombosis) ([facility]), Dysarthria and anarthria, Dysphagia, oropharyngeal phase, Fibromyalgia, History of left shoulder replacement, Hyperlipidemia, Hyperlipidemia, Hyperosmolality and hypernatremia, Hypokalemia, Hypothyroid, Hypothyroid, Hypoxia, IBS (irritable bowel syndrome), IBS (irritable bowel syndrome), Knee pain, right, Lack of coordination, Left humeral fracture, Left shoulder pain, MDD (major depressive disorder), Migraine, Need for assistance with personal care, Obesity, RAULITO (obstructive sleep apnea), RAULITO (obstructive sleep apnea), Other symbolic dysfunctions, Personal history of transient ischemic attack (TIA), and cerebral infarction without residual deficits, Pneumonitis, Reduced mobility, Repeated falls, Syncope, Syncope and collapse, TIA (transient ischemic attack), and Weakness. has a past surgical history that includes Cholecystectomy; Other surgical history (05/31/2022); Hysterectomy; Other surgical history (Left, 06/01/2022); Arm Surgery (Right); Arm Surgery (N/A); and Total knee arthroplasty (Right, 01/12/2023). Restrictions Restrictions/Precautions Restrictions/Precautions: Weight Bearing, General Precautions, Surgical Protocols, ROM Restrictions, Fall Risk Required Braces or Orthoses?: No Lower Extremity Weight Bearing Restrictions Right Lower Extremity Weight Bearing: Weight Bearing As Tolerated Position Activity Restriction Other position/activity restrictions: s/p R TKA with Dr. Laureano. Pt is now WBAT with no forced knee flexion. Vision/Hearing Vision: Within Functional Limits Vision Exceptions: Wears glasses at all times Hearing: Functional/adequate for paticipation in therapy Cognition/Orientation Overall Cognitive Status: WFL Overall Orientation Status: Within Functional Limits Subjective General Chart Reviewed: Yes Patient Assessed for Rehabilitation Services: Yes Family / Caregiver Present: No Subjective Subjective: Pt pleasant and agreeable for therapy eval. General Comments Comments: Per RN, pt OK to see. Patient Stated Goal: to get back home Pain Assessment Pain Assessment: 0-10 Pain Score: 10 - Worst possible pain Pain Type: Acute pain, Surgical pain Pain Location: Knee Pain Orientation: Right Pain Descriptors: Aching Pain Interventions: Ambulation/increased activity, Cold pack, Cold applied, Repositioned Vital Signs BP: (!) 147/84 Social/Functional History Social/Functional History Lives With: Other (comment) Type of Home: (SNF) Home Layout: One level Home Access: Level entry Bathroom Shower/Tub: Walk-in shower Bathroom Toilet: Handicap height Bathroom Equipment: Grab bars in shower, Grab bars around toilet Bathroom Accessibility: Walker accessible Home Equipment: Rollator, Wheelchair-manual Receives Help From: Facility staff ADL Assistance: Needs assistance (Pt reports that she is able to shower herself but requires assist for dressing at baseline) Ambulation Assistance: Needs assistance (limited mobility with a rollator. reports supervision-SBA) With device?: Yes Device: rollator Transfer Assistance: Needs assistance Active Entry Level Finance: No Additional Comments: Pt is a [facility] resident at the [facility]. Objective Gross Assessment: Yes AROM: Within functional limits PROM: Within functional limits Strength: Within functional limits Coordination: Within functional limits Tone: Normal Sensation: Intact Observation/Palpation Posture: Fair Observation: sx dressing clean, dry, and intact: ambit intact Balance Sitting Balance: Modified independent Standing Balance: Contact guard assistance Standing Balance Time: ~ 20 seconds x3 Activity: static standing Comment: Pt stood at the EOB prior to mobility, stood at the toilet, and stood to wash hands with CGA for standing balance with FWW for steadying support. Functional Mobility Functional - Mobility Device: Rolling Walker Activity: To/from bathroom Assist Level: Minimal assistance Functional Mobility Comments: Pt able to walk to the bathroom with CGA initially but required heavy use of B UEs to offload weight d/t LE pain. On the way back to bed, pt with increased pain and fatigue, regressing to Min A. Cues for turning and proximity to the walker towards the end of mobility. No knee buckling observed. Toilet Transfers Toilet - Technique: Ambulating Equipment Used: Grab bars Toilet Transfer: Minimal assistance Toilet Transfers Comments: Pt required Min A for transfers with use of yesenia grab bars. ADL Feeding: Modified independent Grooming: Stand by assistance UE Bathing: Stand by assistance LE Bathing: Minimal assistance UE Dressing: Stand by assistance LE Dressing: Minimal assistance Toileting: Stand by assistance Additional Comments: Pt able to perform bathroom level toileting, sitting to perform hygiene after urinating. SBA for safety. SBA-Min A for ADLs d/t pain. Bed mobility Supine to Sit: Stand by assistance Sit to Supine: Stand by assistance Scooting: Stand by assistance Comment: Pt educated on WBing and ROM restrictions prior to performing bed mobility. Pt able to perform bed mobility with SBA and slight additional time. HOB elevated ~ 45 degrees. Pt endorsed mild light headedness that did not improve throughout the session. Transfers Sit to stand: Minimal assistance Stand to sit: Minimal assistance Transfer Comments: Pt educated on hand/foot placement for transfers. Able to transfer from EOB to FWW with Min A from therapist. Pt with increased pain, needing to offload weight with her B UEs. Plan Times per Week: 3 visits Current Treatment Recommendations: Strengthening, Balance Training, Functional Mobility Training, Endurance Training, Pain Management, Safety Education & Training, Self-Care / ADL, Positioning, Equipment Evaluation, Education, & procurement, Patient/Caregiver Education & Training Plan Comment: POC and goals established in collaboration with pt. Safety Safety Devices in place: Yes Type of devices: All fall risk precautions in place, Left in bed, Call light within reach, Nurse notified, Gait belt, Patient at risk for falls AM-PAC Score AM-PAC Inpatient Daily Activity Raw Score: 19 ADL Inpatient [facility] G-Code Modifier: CK Goals Encounter Problems Encounter Problems (Active) Balance Patient will maintain dynamic standing balance for 3 minutes with supervision in order to demonstrate decreased risk of falling. Start: 01/12/23 Expected End: 01/15/23 Dressings Lower Extremities Patient will dress lower body with supervision Start: 01/12/23 Expected End: 01/15/23 Grooming Pt will perform sink level grooming tasks with supervision Start: 01/12/23 Expected End: 01/15/23 Mobility Pt will perform functional mobility and transfers with FWW and supervision Start: 01/12/23 Expected End: 01/15/23 Toileting Patient will complete toileting tasks at standard toilet with supervision. Start: 01/12/23 Expected End: 01/15/23 Education Education Given To: Patient Education Provided: OT role, Plan of care, Equipment, Precautions, Transfer training Education Provided Comments: Pt receptive to education and demo'ing good teachback this session. Education Method: Verbal, Teach Back, Demonstration Barriers to Learning: None Education Outcome: Demonstrated understanding, Verbalized understanding Therapy Time Individual Co-treatment Time In 1336 Time Out 1352 Minutes 16 Jennifer Hernandez OT documented in this encounter [facility] 01-13-2023 Note Formatting of this n ote might be different from the original. Discharge med list and MAR information transmitted to return back to [facility] via [facility] per TCC request. [facility] 01-13-2023 Note Formatting of this n ote might be different from the original. Discharge med list and MAR information transmitted to return back to [facility] via [facility] per TCC request. [facility] 01-13-2023 Miscellaneous Notes Discharge med list and MAR information transmitted to return back to [facility] via [facility] per TCC request. Transportation arranged through [facility] by cot set for 1 pm. Notified RN and TCC of this via [employer] secure chat. SW remains available if any other needs or concerns arise. Sent updated notes to [facility] via [facility] per TCC request. Await review and response regarding ability to accept. TCC notified. S/p R TKA PT rec return to ECF with PT and OT rec SNF. 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 [facility] response from [facility] re: Referral [id number] for patient in [id number]: Yes, willing to accept patient LTC , she is currently on a bed hold I will get a Skilled Auth for her to return.... but will not delay her return... Referral placed to return back to [facility] via [facility] per TCC request. Await review and response regarding ability to accept. TCC notified. Operative Report Patient Name: Andre Blanca Date of : 1950 Date of Surgery: 01/12/23 DATE OF SURGERY: 01/12/23 PREOPERATIVE DIAGNOSIS: RIGHT Knee Degenerative Arthritis - M17.11 POSTOPERATIVE DIAGNOSIS: Same. PROCEDURE PERFORMED: Right Total Knee Arthroplasty, Kinematic Alignment SURGEON: Almas Laureano MD ASSISTANTS: Anup PGY-IV and Salo FREEMAN ANESTHESIA: Spinal, MAC, Nerve Block, and Local INTRAVENOUS FLUIDS: 1,500 mL ESTIMATED BLOOD LOSS: 100 mL TOURNIQUET TIME: 0 minutes DRAIN: None COMPLICATIONS: Patient tolerated the procedure well without anesthetic or surgical/operative complications. SPECIMENS: None COMPONENTS: DePuy Attune CR femoral component size 5, tibial component size 7, 5 MS tibial polyethylene insert, 35mm patellar component. INTRAOPERATIVE FINDINGS: Intraoperative findings confirmed the radiographic findings of degenerative arthritis characterized by loss of articular cartilage, subchondral sclerosis and marginal osteophytes in all three compartments of the knee. TISSUE REMOVED OR ALTERED: Periarticular bone removed via standard resection. COMORBIDITIES: Acute kidney failure ([facility]) Acute respiratory failure ([facility]) Acute venous embolism and thrombosis of deep vessels of distal lower extremity, unspecified laterality ([facility]) Aftercare following other joint replacement surgery Bipolar 1 disorder ([facility]) Cerebral artery occlusion Cerebral artery occlusion with cerebral infarction ([facility]) Chest pain COPD (chronic obstructive pulmonary disease) ([facility]) COVID-19 Depression Difficulty walking Displaced fracture of acromial process right shoulder squela DVT (deep venous thrombosis) ([facility]) Dysarthria and anarthria Dysphagia, oropharyngeal phase Fibromyalgia History of left shoulder replacement Hyperlipidemia Hyperlipidemia Hyperosmolality and hypernatremia Hypokalemia Hypothyroid Hypothyroid Hypoxia IBS (irritable bowel syndrome) IBS (irritable bowel syndrome) Knee pain, right Lack of coordination Left humeral fracture Left shoulder pain MDD (major depressive disorder) Migraine Need for assistance with personal care Obesity RAULITO (obstructive sleep apnea) RAULITO (obstructive sleep apnea) Other symbolic dysfunctions Personal history of transient ischemic attack (TIA), and cerebral infarction without residual deficits Pneumonitis Reduced mobility Repeated falls Syncope Syncope and collapse TIA (transient ischemic attack) Weakness OPERATIVE NOTE ADDENDUM: None HISTORY: The patient has progressive and debilitating knee pain secondary to end-stage osteoarthritis. The patient has clinical and radiographic evidence of end-stage degenerative joint disease of the knee and has failed nonoperative management. The patient was deemed appropriate for a total knee arthroplasty. Risks, benefits and alternatives to surgical treatment were discussed in detail with the patient and they wish to proceed with the total knee replacement. The patient was seen and thoroughly evaluated by a perioperative special forces medical sergeant preoperatively and was optimized for surgical intervention. SURGICAL PROCEDURE: The patient was identified in the preoperative holding area and the correct knee was identified and marked. The patient was then brought to the operating room where a satisfactory level of anesthesia was obtained by the anesthesia service. Pre-scrub of the operative extremity was completed with alcohol solution. IV antibiotics and tranexamic acid were administered. The leg was prepped with Chloroprep and draped in standard sterile fashion. A surgical time out was called, identifying the correct patient, correct extremity, correct procedure, and that IV antibiotics had been appropriately given, in addition to identifying that the surgical implants, radiographs, and vendors were available in the operating room. An anterior longitudinal incision was made. Sharp dissection was carried down through the skin and subcutaneous tissue and a median parapatellar arthrotomy was performed, leaving a cuff of tendon adjacent to the VMO to facilitate closure. The anteromedial retinaculum was elevated off the medial tibia and subperiosteal dissection was performed underneath the deep medial collateral ligament. The superficial MCL was protected with a 45-degree bent Hohmann retractor. The retropatellar fat pad was excised to facilitate exposure. The lateral patellofemoral ligament was released and the patella was subluxated into the lateral gutter of the knee. The knee was then brought into flexion and a right angle retractor was placed lateral to the tibia to protect the lateral sided structures and the patella. The anterior cruciate ligament was divided. Any remaining cartilage on the affected compartment was removed with a curette and/or oscillating saw. The other compartment was intact. We then obtained access to the femoral canal with the stepped drill. An intramedullary blanquita was placed. The appropriate valgus angle was replicated accounting for cartilage loss with a 2mm spacer, visualizing the paddles were flush with distal femur. The appropriate resection depth was set based on implant thickness. The distal femoral cut was made with an oscillating saw while the medial and lateral collateral ligaments were protected with retractors. The cuts were verified with a caliper to be an appropriate resection. The anteroposterior femoral sizing guide was then inserted onto the distal femur with the feet along the posterior femoral condyles and the sizing boom impacting the anterior femoral surface. The femoral component that would best reproduce the patient's anteroposterior anatomical dimensions without notching was determined, the rotation dialed in appropriately by visualizing [place]'s line. Alignment holes drilled. The femoral four-in-one block was then placed onto the distal femur, assessed to ensure anadequate mediolateral dimension, and secured with threaded pins. A comma guide was used to confirm adequate anterior clearance to avoid femoral notching. With the medial and lateral collateral ligaments protected with retractors, the femoral finishing cuts were made in the following order with an oscillating saw: anterior, posterior condyles, anterior chamfers, posterior chamfers. The finishing guide was removed and all bony fragments were removed carefully. The notch cut was performed according to protocol. Attention was then turned to the tibia. A double-prong PCL retractor was placed posterior to the tibia, retracting the tibia anteriorly. A medial 45 degree bent Hohmann and a 90 degree bent lateral retractor was maintained to protect the collateral ligaments. Medial and lateral meniscal remnants were excised with Bovie electrocautery. The extramedullary tibial cutting guide was then aligned with the long axis of the tibia and the cutting guide pegged perpendicular to the mechanical axis. The guide was set to a depth to take the appropriate resection off the medial and lateral surfaces based on preoperative templating and intra-operative landmarks. The cut was approximated by referencing the intact cartilage medial and lateral to the tibial eminence, attempting to cut perpendicular at a right angle formed by bisecting the two sides. Guide was pinned. An oscillating saw was used to cut the medial and lateral articular surfaces. An osteotome was used to carefully elevate the articular surface and then removed from the soft tissues with a bovie electrocautery. The trial tibial baseplate was set onto the cut surface, felt to be the appropriate size and the alignment checked with the alignment blanquita. The alignment blanquita was used to verify slope was appropriate and that varus/valgus alignment was appropriate given the patient's anatomy and pre-operative deformity. Residual marginal medial tibial osteophytes were resected to avoid tenting of the medial collateral ligament. Lamina spreaders were used to expose the posterior aspect of the knee. Residual posterior femoral condylar osteophytes were resected with a curved osteotome and removed carefully with a pituitary rongeur. The medial and lateral compartments were then assessed for symmetry with gap roving or yarn color checker blocks, in both flexion and extension, to ensure symmetrical extension gap, and a slight trapezoidal flexion gap. The gaps were able to be fined tuned by re-cutting the tibia if needed in order to ensure a solid extension space. The trial femoral and tibial components were inserted with the articular trial liner insert and the components were observed to fit well. The knee was taken through a full range of motion and found to demonstrate full extension without residual flexion contracture with the trial tibial insert. The PCL was maintained, appropriate flexion gap balancing was appreciated.. Full flexion was obtained without anterior tibial trial liftoff and did not demonstrate any flexion instability. The tibial component was allowed to float and optimize its rotation and anteroposterior translation. Tibiofemoral kinematics was optimized in 90 degrees of flexion and the rotation was then marked with a Bovie and corresponded approximately to the medial portion of the tibial tubercle. Coronal alignment was appropriate and symmetric medial and lateral gap balancing was present with varus and valgus stress at 0 and 30 degrees to 1 mm or less difference. Medial flexion space was tight to about 1-2mm of laxity with slightly more laxity laterally in flexion accepted/preferred. Attention was then turned to the patella. The knee was kept in full extension, the patella was held securely with two towel clips and was measured with calipers. An oscillating saw was used to cut the articular surface with free hand technique to a depth that restored the pre-resection patellar thickness. Calipers were then used to measure and ensure an adequate residual thickness and confirm a symmetrical cut in all four quadrants. Three peg holes were then drilled using the template guide and the trial component was inserted. The knee taken through range of motion and patellofemoral tracking was observed to be satisfactory. All trial components except for the tibial trial were removed. The tibial trial was then pegged securely into place in the correct rotation. The tibia was then prepared with the tibial drill guide and keeled punch impactor. All sclerotic surfaces were prepared with small drill holes to facilitate cement interdigitation. All bony surfaces were cleaned thoroughly with Pulsavac lavage and dried, and then further prepared with compressed sterile carbon dioxide to enhance cement fixation. The actual implants were brought onto the surgical field and assembled. Simplex low viscosity cement with 750mg of cefuroxime per batch was prepared and the components were securely cemented with pressurization. The cement was allowed to cure with the knee held in extension and visual confirmation of secure component fixation was obtained in all components. While the knee was in extension and the cement drying, a kanwal-articular solution was injected into the kanwal-articular tissues including the retinaculum, synovium, quadriceps tendon and VMO, taking care to avoid any neurovascular structures. Upon drying, all extraneous cement was removed from the implant edges, the trial insert was removed and cement removed from all aspects of the knee, including the posterior condyles. The knee was vigorously irrigated with Pulsavac lavage to remove any cement particles and the final polyethylene tibial component was inserted and impacted into a locked position. The knee demonstrated satisfactory coronal alignment, soft tissue balancing, and patellofemoral tracking. Hemostasis was assured to be obtained prior to closure. Attention was then turned to closure. Dilute betadine solution was used to soak in the knee for 3 minutes. Three liters of pulsavac lavage was then used to irrigate out the knee. The medial arthrotomy was closed in full knee flexion with a #1 Vicryl suture for the high tension areas superior to and at the level of the equator of the patella, followed by running #1 Stratafix barbed monofilament suture to close the entire arthrotomy. No deep fatty tissue closure was necessary. The dermal layer was closed with interrupted 2-0 Vicryl sutures and the skin was closed with a running 3-0 monocryl subcuticular closure. Dermabond was used with Prineo. A sterile OpSite dressing was placed, Jerardo wrap, and cryotherapy was applied. All sponge and needle counts were correct at the end of the surgery and I was present during all critical aspects of the surgical procedure. The patient was transferred to the recovery room. documented in this encounter [facility] 01-13-2023 Note Formatting of this n ote might be different from the original. Transportation arranged through [facility] by cot set for 1 pm. Notified RN and TCC of this via [employer] chat. SW remains available if any other needs or concerns arise. [facility] 01-13-2023 Note Formatting of this n ote might be different from the original. Transportation arranged through [facility] by cot set for 1 pm. Notified RN and TCC of this via [email or web address]. SW remains available if any other needs or concerns arise. [facility] 01-13-2023 Nurse Note Ambit pain pump discontinued per Anesthesia. Exparel block placed per anesthesia for better pain control. Pt tolerated procedure well. [facility] 01-13-2023 Nurse Note Ambit pain pump discontinued per Anesthesia. Exparel block placed per anesthesia for better pain control. Pt tolerated procedure well. POD #1 RTKA Patient resting in bed. She states pain has been intense. She is planning on returning to [facility] when able. She normally ambulates with a rollator at facility. Denies any questions at this time. documented in this encounter [facility] 01-13-2023 Nurse Note POD #1 RTKA Patient resting in bed. She states pain has been intense. She is planning on returning to [facility] when able. She normally ambulates with a rollator at facility. Denies any questions at this time. [facility] 01-13-2023 Note Formatting of this n ote might be different from the original. [facility] updated [facility] to [facility] request. Await review and response regarding ability to accept. TCC notified. [facility] 01-13-2023 Note Formatting of this n ote might be different from the original. Sent updated notes to [facility] per [facility]CC request. Await review and response regarding ability to accept. TCC notified. [facility] 01-13-2023 Note Formatting of this n ote might be different from the original. S/p R TKA PT rec return to [facility] with PT and OT rec SNF. 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 T [facility] 01-13-2023 Note Formatting of this n ote might be different from the original. S/p R TKA PT rec return to ECF with PT and OT rec SNF. 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 T [facility] 01-13-2023 Plan of care note Problem: Neurosensory - Adult Goal: Achieves maximal functionality and self care Outcome: Progressing Problem: Musculoskeletal - Adult Goal: Return mobility to safest level of function Outcome: Progressing Goal: Maintain proper alignment of affected body part Outcome: Progressing Goal: Return ADL status to a safe level of function Outcome: Progressing Problem: Pain - Adult Goal: Verbalizes/displays adequate comfort level or baseline comfort level Outcome: Progressing Problem: Safety - Adult Goal: Free from fall injury Outcome: Progressing T [facility] 01-12-2023 Consult note Formatting of th is note is different from the original. Attending Consult Admit Date: 01/12/2023 PCP: Kianna Izquierdo Reason for consult: Medical management History Obtained From: patient HISTORY OF PRESENT ILLNESS: Andre is a 72 y.o. female with history of right knee pain. She has been following with ortho outpatient and has tried conservative measures which has failed. She has elected to proceed with TKA and came in for surgery this am. She is now post op and her PCP is Dr. Izquierdo who does NOT come here. We were consulted to follow for medical management. She is doing well post op and currently denies any chest pain or sob. No NV. No fevers or chills. Past Medical History: Past Medical History: Diagnosis Date Acute kidney failure ([facility]) Acute respiratory failure ([facility]) Acute venous embolism and thrombosis of deep vessels of distal lower extremity, unspecified laterality ([facility]) Aftercare following other joint replacement surgery Bipolar 1 disorder ([facility]) Cerebral artery occlusion Cerebral artery occlusion with cerebral infarction ([facility]) Chest pain COPD (chronic obstructive pulmonary disease) ([facility]) COVID-19 Depression Difficulty walking Displaced fracture of acromial process right shoulder squela DVT (deep venous thrombosis) ([facility]) Dysarthria and anarthria Dysphagia, oropharyngeal phase Fibromyalgia History of left shoulder replacement Hyperlipidemia Hyperlipidemia Hyperosmolality and hypernatremia Hypokalemia Hypothyroid Hypothyroid Hypoxia IBS (irritable bowel syndrome) IBS (irritable bowel syndrome) Knee pain, right Lack of coordination Left humeral fracture Left shoulder pain MDD (major depressive disorder) Migraine Need for assistance with personal care Obesity RAULITO (obstructive sleep apnea) RAULITO (obstructive sleep apnea) Other symbolic dysfunctions Personal history of transient ischemic attack (TIA), and cerebral infarction without residual deficits Pneumonitis Reduced mobility Repeated falls Syncope Syncope and collapse TIA (transient ischemic attack) Weakness Past Surgical History: Past Surgical History: Procedure Laterality Date ARM SURGERY (HISTORICAL) Right ARM SURGERY (HISTORICAL) N/A CHOLECYSTECTOMY HYSTERECTOMY OTHER SURGICAL HISTORY 05/31/2022 Left femoral endoprosthetic replacement OTHER SURGICAL HISTORY Left 06/01/2022 ORIF left olecranon TOTAL KNEE ARTHROPLASTY Right 01/12/2023 Family History: Family History Problem Relation Name Age of Onset Emphysema Father Alcohol abuse Mother Medications Prior to Admission: No current facility-administered medications on file prior to encounter. Current Outpatient Medications on File Prior to Encounter Medication Sig Dispense Refill acetaminophen (Tylenol) 325 MG tablet Take 650 mg by mouth. busPIRone (Buspar) 10 MG tablet Take 10 mg by mouth in the morning and 10 mg at noon and 10 mg before bedtime. carBAMazepine (TEGretol) 200 MG tablet Take 1 tablet by mouth in the morning and 1 tablet at noon and 1 tablet before bedtime. fludrocortisone (Florinef) 0.1 MG tablet Take 0.1 mg by mouth in the morning. levothyroxine (Synthroid, Levoxyl) 150 MCG tablet Take 150 mcg by mouth in the morning. melatonin 10 MG tablet Take 10 mg by mouth Nightly. pantoprazole (ProtoNix) 40 MG EC tablet Take 40 mg by mouth in the morning and 40 mg in the evening. pravastatin (Pravachol) 40 MG tablet Take 40 mg by mouth in the morning. pregabalin (Lyrica) 150 MG capsule Take 150 mg by mouth in the morning and 150 mg before bedtime. traZODone (Desyrel) 50 MG tablet Take 50 mg by mouth Nightly. venlafaxine XR (Effexor XR) 75 MG 24 hr tablet Take 37.5 mg by mouth in the morning. biotin 1000 MCG tablet Take 10 mg by mouth. bisacodyl (Dulcolax) 5 MG EC tablet Take 5 mg by mouth Daily as needed. cholecalciferol (Vitamin D-3) 1.25 MG (23100 UT) capsule Take by mouth. clopidogrel (Plavix) 75 MG tablet Take 75 mg by mouth in the morning. ergocalciferol (Vitamin D-2) 1.25 MG (57401 UT) capsule Take 50,000 Units by mouth 1 (one) time per week. traMADol (Ultram) 50 MG tablet Take 50 mg by mouth every 6 hours as needed. [DISCONTINUED] albuterol 108 (90 Base) MCG/ACT inhaler Inhale 2 puffs every 6 hours as needed. Allergies: Sulfamethoxazole-trimethoprim, Aspirin, Ibuprofen, and Sumatriptan Social History: Social History Socioeconomic History Marital status: Spouse name: Not on file Number of children: Not on file Years of education: Not on file Highest education level: Not on file Occupational History Not on file Tobacco Use Smoking status: Never Passive exposure: Never Smokeless tobacco: Never Substance and Sexual Activity Alcohol use: Not Currently Drug use: Never Sexual activity: Not on file Other Topics Concern Not on file Social History Narrative Merged History Encounter Social Determinants of Health Financial Resource Strain: Not on file Food Insecurity: Not on file Transportation Needs: Not on file Physical Activity: Not on file Stress: Not on file Social Connections: Not on file Intimate Partner Violence: Not on file Housing Stability: Not on file REVIEW OF SYSTEMS: Other than patient's chronic conditions and those complaints in the history above, the rest of the 10 systems review were done and were negative. Vitals: BP (!) 147/84 Pulse 76 Temp 36.2 C (97.2 F) (Temporal) Resp 20 SpO2 94% BMI Classification: Normal Weight (BMI 18.5-24.9) Pulse Ox: SpO2 Av.2 % Min: 94 % Max: 100 % Supplemental O2: O2 Flow Rate (L/min): 2 L/min PHYSICAL EXAM: General appearance: No apparent distress, appears stated age and cooperative with exam. HEENT: Eyes: No scleral icterus Oral: Tongue is semi-moist Cardiovascular: S1/S2 heard, RRR Respiratory: Clear to auscultation bilaterally Abdomen: Soft, non-tender, non-distended bowel sounds positive Musculoskeletal: No obvious deformities seen Skin: No visible rashes or lesions. DATA: CBC: No results for input(s): WBC, RBC, HGB, HCT, MCV, RDW, PLT in the last 72 hours. BMP:No results for input(s): NA, K, CL, CO2, BUN, CREATININE, GLUCOSE, CALCIUM, ANIONGAP in the last 72 hours. LIVER PROFILE:No results for input(s): AST, ALT, BILITOT, ALKPHOS, PROT in the last 72 hours. No lab exists for component: LABALBU PT/INR: No results for input(s): PROTIME, INR in the last 72 hours. CARDIAC ENZYMES: No results for input(s): TROPONINI in the last 72 hours. Procalcitonin: No results found for: PROCAL Urine Culture: No results found for this or any previous visit. COVID-19 PCR: No results for input(s): COVID19 in the last 72 hours. I reviewed: [x] laboratory results [x] radiographic results At the time of today's encounter. Pt was advised of the results. IMPRESSION: # Right knee degenerative arthritis - S/P Right Total Knee Arthroplasty, Kinematic Alignment on 01/[address] Laureano. Ortho managing # Hx of DVT (also stated had PE as well) - SCDs ordered per Ortho (but should consider lovenox or low dose eliquis given hx of DVT in the past (defer to Ortho). # Hx of depression/Bipolar 1 disorder # COPD - stable # Hx of CVA # Hx of Fibromyalgia # Hx of IBS # HLD # Chronic hypothyroidism # Hx of RAULITO # Hx of Migraines PLAN: Labs ordered for am per Ortho. Resumed home meds. DVT proph managed per ortho (SCDs ordered). Should consider lovenox or low dose eliquis given hx of DVT in the past (defer to Ortho). Also resume Plavix when okay with Ortho. Will continue to follow with you for medical management. Thank you for this consult. Time spent including face to face and non-face to face time was: 43 minutes -PT/OT eval/increase activity -am labs, replace lytes prn -vitals per routine -home meds as ordered -DVT prophylaxis: [] Lovenox [] Heparin [] SCDs [x] Encourage ambulation [] Already on Anticoagulation -see below for additional orders, further recommendations to follow Orders Placed This Encounter Procedures XR knee 1 or 2 views right Basic metabolic panel Hemoglobin and hematocrit, blood Adult diet Regular Notify physician per STANDARD parameters Notify Provider - hemoglobin Vital Signs Neurovascular checks Wound care Ice therapy Activity No Restrictions; 1) Ambulate in room progressing to hallway with assistive device four times daily (including PT). 2) Bathroom privileges with assistance. 3) Up in bedside chair at least TID as tolerated. Full weight bearing as tolerated Incentive spirometry nursing Notify patient's primary care provider of admission Advance diet as tolerated Place sequential compression device Straight cath Monitor for signs/symptoms of urinary retention Nursing communication No pillow under the operative knee, place pillow or blankets under the ankle. Full Code Inpatient consult to Internal Medicine Supplement:Breakfast; Fruit Punch Sudhakar (Wound Healing Oral Supplement) OT eval and treat PT eval and treat Initiate Oxygen Therapy Protocol Encourage deep breathing and coughing ECG 12 lead Post Procedure Recovery Admit to inpatient Discharge patient Place in outpatient/hospital ambulatory surgery Code status: Full Code Please forward a copy of this H&P to the patient's PCP. Thank you. Electronically signed by @[email or web address]@ on @TDNR@ at [email or web address]@ [facility] 01-12-2023 Consult note Formatting of th is note is different from the original. Attending Consult Admit Date: 01/12/2023 PCP: Kianna Izquierdo Reason for consult: Medical management History Obtained From: patient HISTORY OF PRESENT ILLNESS: Andre is a 72 y.o. female with history of right knee pain. She has been following with ortho outpatient and has tried conservative measures which has failed. She has elected to proceed with TKA and came in for surgery this am. She is now post op and her PCP is Dr. Izquierdo who does NOT come here. We were consulted to follow for medical management. She is doing well post op and currently denies any chest pain or sob. No NV. No fevers or chills. Past Medical History: Past Medical History: Diagnosis Date Acute kidney failure (HCC) Acute respiratory failure (HCC) Acute venous embolism and thrombosis of deep vessels of distal lower extremity, unspecified laterality ([facility]) Aftercare following other joint replacement surgery Bipolar 1 disorder ([facility]) Cerebral artery occlusion Cerebral artery occlusion with cerebral infarction ([facility]) Chest pain COPD (chronic obstructive pulmonary disease) ([facility]) COVID-19 Depression Difficulty walking Displaced fracture of acromial process right shoulder squela DVT (deep venous thrombosis) ([facility]) Dysarthria and anarthria Dysphagia, oropharyngeal phase Fibromyalgia History of left shoulder replacement Hyperlipidemia Hyperlipidemia Hyperosmolality and hypernatremia Hypokalemia Hypothyroid Hypothyroid Hypoxia IBS (irritable bowel syndrome) IBS (irritable bowel syndrome) Knee pain, right Lack of coordination Left humeral fracture Left shoulder pain MDD (major depressive disorder) Migraine Need for assistance with personal care Obesity RAULITO (obstructive sleep apnea) RAULITO (obstructive sleep apnea) Other symbolic dysfunctions Personal history of transient ischemic attack (TIA), and cerebral infarction without residual deficits Pneumonitis Reduced mobility Repeated falls Syncope Syncope and collapse TIA (transient ischemic attack) Weakness Past Surgical History: Past Surgical History: Procedure Laterality Date ARM SURGERY (HISTORICAL) Right ARM SURGERY (HISTORICAL) N/A CHOLECYSTECTOMY HYSTERECTOMY OTHER SURGICAL HISTORY 05/31/2022 Left femoral endoprosthetic replacement OTHER SURGICAL HISTORY Left 06/01/2022 ORIF left olecranon TOTAL KNEE ARTHROPLASTY Right 01/12/2023 Family History: Family History Problem Relation Name Age of Onset Emphysema Father Alcohol abuse Mother Medications Prior to Admission: No current facility-administered medications on file prior to encounter. Current Outpatient Medications on File Prior to Encounter Medication Sig Dispense Refill acetaminophen (Tylenol) 325 MG tablet Take 650 mg by mouth. busPIRone (Buspar) 10 MG tablet Take 10 mg by mouth in the morning and 10 mg at noon and 10 mg before bedtime. carBAMazepine (TEGretol) 200 MG tablet Take 1 tablet by mouth in the morning and 1 tablet at noon and 1 tablet before bedtime. fludrocortisone (Florinef) 0.1 MG tablet Take 0.1 mg by mouth in the morning. levothyroxine (Synthroid, Levoxyl) 150 MCG tablet Take 150 mcg by mouth in the morning. melatonin 10 MG tablet Take 10 mg by mouth Nightly. pantoprazole (ProtoNix) 40 MG EC tablet Take 40 mg by mouth in the morning and 40 mg in the evening. pravastatin (Pravachol) 40 MG tablet Take 40 mg by mouth in the morning. pregabalin (Lyrica) 150 MG capsule Take 150 mg by mouth in the morning and 150 mg before bedtime. traZODone (Desyrel) 50 MG tablet Take 50 mg by mouth Nightly. venlafaxine XR (Effexor XR) 75 MG 24 hr tablet Take 37.5 mg by mouth in the morning. biotin 1000 MCG tablet Take 10 mg by mouth. bisacodyl (Dulcolax) 5 MG EC tablet Take 5 mg by mouth Daily as needed. cholecalciferol (Vitamin D-3) 1.25 MG (88919 UT) capsule Take by mouth. clopidogrel (Plavix) 75 MG tablet Take 75 mg by mouth in the morning. ergocalciferol (Vitamin D-2) 1.25 MG (12939 UT) capsule Take 50,000 Units by mouth 1 (one) time per week. traMADol (Ultram) 50 MG tablet Take 50 mg by mouth every 6 hours as needed. [DISCONTINUED] albuterol 108 (90 Base) MCG/ACT inhaler Inhale 2 puffs every 6 hours as needed. Allergies: Sulfamethoxazole-trimethoprim, Aspirin, Ibuprofen, and Sumatriptan Social History: Social History Socioeconomic History Marital status: Spouse name: Not on file Number of children: Not on file Years of education: Not on file Highest education level: Not on file Occupational History Not on file Tobacco Use Smoking status: Never Passive exposure: Never Smokeless tobacco: Never Substance and Sexual Activity Alcohol use: Not Currently Drug use: Never Sexual activity: Not on file Other Topics Concern Not on file Social History Narrative Merged History Encounter Social Determinants of Health Financial Resource Strain: Not on file Food Insecurity: Not on file Transportation Needs: Not on file Physical Activity: Not on file Stress: Not on file Social Connections: Not on file Intimate Partner Violence: Not on file Housing Stability: Not on file REVIEW OF SYSTEMS: Other than patient's chronic conditions and those complaints in the history above, the rest of the 10 systems review were done and were negative. Vitals: BP (!) 147/84 Pulse 76 Temp 36.2 C (97.2 F) (Temporal) Resp 20 SpO2 94% BMI Classification: Normal Weight (BMI 18.5-24.9) Pulse Ox: SpO2 Av.2 % Min: 94 % Max: 100 % Supplemental O2: O2 Flow Rate (L/min): 2 L/min PHYSICAL EXAM: General appearance: No apparent distress, appears stated age and cooperative with exam. HEENT: Eyes: No scleral icterus Oral: Tongue is semi-moist Cardiovascular: S1/S2 heard, RRR Respiratory: Clear to auscultation bilaterally Abdomen: Soft, non-tender, non-distended bowel sounds positive Musculoskeletal: No obvious deformities seen Skin: No visible rashes or lesions. DATA: CBC: No results for input(s): WBC, RBC, HGB, HCT, MCV, RDW, PLT in the last 72 hours. BMP:No results for input(s): NA, K, CL, CO2, BUN, CREATININE, GLUCOSE, CALCIUM, ANIONGAP in the last 72 hours. LIVER PROFILE:No results for input(s): AST, ALT, BILITOT, ALKPHOS, PROT in the last 72 hours. No lab exists for component: LABALBU PT/INR: No results for input(s): PROTIME, INR in the last 72 hours. CARDIAC ENZYMES: No results for input(s): TROPONINI in the last 72 hours. Procalcitonin: No results found for: PROCAL Urine Culture: No results found for this or any previous visit. COVID-19 PCR: No results for input(s): COVID19 in the last 72 hours. I reviewed: [x] laboratory results [x] radiographic results At the time of today's encounter. Pt was advised of the results. IMPRESSION: # Right knee degenerative arthritis - S/P Right Total Knee Arthroplasty, Kinematic Alignment on 01/[address] Laureano. Ortho managing # Hx of DVT (also stated had PE as well) - SCDs ordered per Ortho (but should consider lovenox or low dose eliquis given hx of DVT in the past (defer to Ortho). # Hx of depression/Bipolar 1 disorder # COPD - stable # Hx of CVA # Hx of Fibromyalgia # Hx of IBS # HLD # Chronic hypothyroidism # Hx of RAULITO # Hx of Migraines PLAN: Labs ordered for am per Ortho. Resumed home meds. DVT proph managed per ortho (SCDs ordered). Should consider lovenox or low dose eliquis given hx of DVT in the past (defer to Ortho). Also resume Plavix when okay with Ortho. Will continue to follow with you for medical management. Thank you for this consult. Time spent including face to face and non-face to face time was: 43 minutes -PT/OT eval/increase activity -am labs, replace lytes prn -vitals per routine -home meds as ordered -DVT prophylaxis: [] Lovenox [] Heparin [] SCDs [x] Encourage ambulation [] Already on Anticoagulation -see below for additional orders, further recommendations to follow Orders Placed This Encounter Procedures XR knee 1 or 2 views right Basic metabolic panel Hemoglobin and hematocrit, blood Adult diet Regular Notify physician per STANDARD parameters Notify Provider - hemoglobin Vital Signs Neurovascular checks Wound care Ice therapy Activity No Restrictions; 1) Ambulate in room progressing to hallway with assistive device four times daily (including PT). 2) Bathroom privileges with assistance. 3) Up in bedside chair at least TID as tolerated. Full weight bearing as tolerated Incentive spirometry nursing Notify patient's primary care provider of admission Advance diet as tolerated Place sequential compression device Straight cath Monitor for signs/symptoms of urinary retention Nursing communication No pillow under the operative knee, place pillow or blankets under the ankle. Full Code Inpatient consult to Internal Medicine Supplement:Breakfast; Fruit Punch Sudhakar (Wound Healing Oral Supplement) OT eval and treat PT eval and treat Initiate Oxygen Therapy Protocol Encourage deep breathing and coughing ECG 12 lead Post Procedure Recovery Admit to inpatient Discharge patient Place in outpatient/hospital ambulatory surgery Code status: Full Code Please forward a copy of this H&P to the patient's PCP. Thank you. Electronically signed by @[email or web address]@ on @TDNR@ at @NOWNR@ documented in this encounter [facility] 01-12-2023 Note Formatting of this n ote is different from the original. Addendum created 01/12/23 1327 by Delia Uribe APRN - BREAKER MACHINE TENDER Child order released for a procedure order, Clinical Note Signed, Intraprocedure Blocks edited, Orders acknowledged in Narrator, SmartForm saved [facility] 01-12-2023 Miscellaneous Notes Addendum created 01/12/23 1327 by FREDERICK Copeland CRNA Child order released for a procedure order, Clinical Note Signed, Intraprocedure Blocks edited, Orders acknowledged in Narrator, SmartForm saved Patient: Andre Blanca Procedure Summary Date: 01/12/23 Room / Location: [address] Operating Room Anesthesia Start: 1051 Anesthesia Stop: 1307 Procedure: Right Total Knee Arthroplasty (Right: Knee) Diagnosis: Unilateral primary osteoarthritis, right knee (Unilateral primary osteoarthritis, right knee [M17.11]) Surgeons: Almas Laureano MD Responsible Provider: FREDERICK Courtney CRNA Anesthesia Type: spinal ASA Status: 3 Anesthesia Type: spinal Vitals Value Taken Time BP 111/59 01/12/23 1308 Temp 97.2 01/12/23 1308 Pulse 66 01/12/23 1308 Resp 16 01/12/23 1308 SpO2 99 01/12/23 1308 Anesthesia Post Evaluation Patient location during evaluation: PACU Patient participation: complete - patient participated Level of consciousness: awake and alert Pain management: satisfactory to patient Airway patency: patent Dental Injury: no Cardiovascular status: acceptable, blood pressure returned to baseline and hemodynamically stable Respiratory status: acceptable, spontaneous ventilation and face mask Hydration status: euvolemic Nausea/Vomiting: controlled No notable events documented. Patient can be discharged once all PACU criteria has been met. documented in this encounter [facility] 01-12-2023 Anesthesiology procedure note Associated Order(s): Peripheral Block Peripheral Block Time Out: 01/12/2023 1:09 PM Patient location during procedure: post-op Start time: 01/12/2023 1:09 PM End time: 01/12/2023 1:22 PM Reason for block: at surgeon's request and post-op pain management Staffing Performed: GILLIAN Resident/BREAKER MACHINE TENDER: FREDERICK Copeland CRNA Preanesthetic Checklist Completed: patient identified, IV checked, site marked, risks and benefits discussed, surgical consent, monitors and equipment checked, pre-op evaluation and timeout performed Region: Lower Extremities Primary: Adductor Canal Peripheral Block Patient position: supine Prep: ChloraPrep Patient monitoring: heart rate, satellite project site monitor, continuous pulse ox and continuous capnometry O2: Nasal cannula Laterality: right Injection technique: catheter Guidance: ultrasound guided -image retained in chart, tip of the needle identified by ultraound during injection. Needle Catheter: 4 in Catheter over Needle Additional Notes 01/12/2023 1:09 PM Assessment Injection assessment: negative aspiration for heme, no paresthesia on injection, incremental injection and local visualized surrounding nerve on ultrasound Paresthesia pain: none Heart rate change: no Slow fractionated injection: yes Required Documentation: Relevant anatomy identified (Nerves, Vessels, Muscles), Local anesthetic spread visualized around nerves or plane., Local anesthetic injected without difficulty, Negative for blood on aspiration, No EKG changes noted, No symptoms of toxicity, Local anesthetic injected incrementally with intermittent aspiration every 5 mL, No paresthesias reported by patient during injection and Normal resistance with injectionMedications [id number]-[id number]-[id number] ine (TAP) syringe - Injection 30 mL - 01/12/2023 1:09:00 PM kaufDA [employer] Work Phone: 01-12-2023 Surgical operatio n note Associated Order(s): Peripheral Block Peripheral Block Time Out: 01/12/2023 1:09 PM Patient location during procedure: post-op Start time: 01/12/2023 1:09 PM End time: 01/12/2023 1:22 PM Reason for block: at surgeon's request and post-op pain management Staffing Performed: GILLIAN Resident/BREAKER MACHINE TENDER: FREDERICK Copeland CRNA Preanesthetic Checklist Completed: patient identified, IV checked, site marked, risks and benefits discussed, surgical consent, monitors and equipment checked, pre-op evaluation and timeout performed Region: Lower Extremities Primary: Adductor Canal Peripheral Block Patient position: supine Prep: ChloraPrep Patient monitoring: heart rate, satellite project site monitor, continuous pulse ox and continuous capnometry O2: Nasal cannula Laterality: right Injection technique: catheter Guidance: ultrasound guided -image retained in chart, tip of the needle identified by ultraound during injection. Needle Catheter: 4 in Catheter over Needle Additional Notes 01/12/2023 1:09 PM Assessment Injection assessment: negative aspiration for heme, no paresthesia on injection, incremental injection and local visualized surrounding nerve on ultrasound Paresthesia pain: none Heart rate change: no Slow fractionated injection: yes Required Documentation: Relevant anatomy identified (Nerves, Vessels, Muscles), Local anesthetic spread visualized around nerves or plane., Local anesthetic injected without difficulty, Negative for blood on aspiration, No EKG changes noted, No symptoms of toxicity, Local anesthetic injected incrementally with intermittent aspiration every 5 mL, No paresthesias reported by patient during injection and Normal resistance with injectionMedications [id number]-[id number]-[id number] ine (TAP) syringe - Injection 30 mL - 01/12/2023 1:09:00 PM Patient: Andre Blanca Procedure Summary Date: 01/12/23 Room / Location: [address] Operating Room Anesthesia Start: 1051 Anesthesia Stop: 1307 Procedure: Right Total Knee Arthroplasty (Right: Knee) Diagnosis: Unilateral primary osteoarthritis, right knee (Unilateral primary osteoarthritis, right knee [M17.11]) Surgeons: Almas Laureano MD Responsible Provider: FREDERICK Courtney CRNA Anesthesia Type: spinal ASA Status: 3 Anesthesia Type: spinal Vitals Value Taken Time BP 111/59 01/12/23 1307 Temp 97.2 01/12/23 1307 Pulse 66 01/12/23 1307 Resp 16 01/12/23 1307 SpO2 99 01/12/23 1307 Anesthesia Post Evaluation Patient location during evaluation: PACU Patient participation: complete - patient participated Level of consciousness: awake and alert Pain management: satisfactory to patient Multimodal analgesia pain management approach Airway patency: patent Two or more strategies used to mitigate risk of obstructive sleep apnea Cardiovascular status: acceptable and hemodynamically stable Respiratory status: acceptable, spontaneous ventilation and face mask Hydration status: acceptable No notable events documented. MIPS #[id number] PONV Patient did not receive an inhalational anesthetic (XX430) MIPS # 424 Perioperative Temperature Management Anesthesia time was 60 minutes or longer (4255F) Anesthesai administered was General (inhalational or TIVA) or Neuraxial block (X0424) At least one body temperature greater than 95.8F/35.5C achieved within the 30 mins immediately prior to or the 15 minutes immediately following anesthesia end time (G9771) MIPS #477 Multimodal Pain Management Not emergent case Patient was administered multimodal pain management (two or more drugs and/or interventions excluding systemic opioids) in the periopeartive period occurring at some time between 6 hours prior to anesthesia start time until discharged from PACU (G2148) MIPS #404 Anesthesiology Smoking Abstinence The patient is not a current smoker (e.g. cigarette, cigar, pipe, e-cigarette/vaping/marijuana) If no stop here (XX404) I completed my handoff to the receiving clinician during which we: 1. Identified the patient 2. Identified the responsible provider 3. Reviewed the pertinent medical history 4. Discussed the surgical course 5. Reviewed intra-op anesthesia management and issues during anesthesia 6. Set expectations for post-procedure period 7. Allowed opportunity for questions and acknowledgement of understanding. Associated Order(s): Spinal Block Spinal Block Time Out: 01/12/2023 10:54 AM Patient location during procedure: OR Start time: 01/12/2023 10:55 AM End time: 01/12/2023 11:02 AM Reason for block: primary anesthetic Staffing Performed: BREAKER MACHINE TENDER Resident/BREAKER MACHINE TENDER: FREDERICK Courtney CRNA Preanesthetic Checklist Completed: patient identified, IV checked, site marked, risks and benefits discussed, surgical consent, monitors and equipment checked, pre-op evaluation and timeout performed Spinal Block Patient position: sitting Prep: ChloraPrep Sterility prep: gloves, hand hygiene and mask Sedation level: light sedation Patient monitoring: continuous pulse oximetry and heart rate Approach: midline Location: L3-4 Injection technique: single-shot Needle Needle type: pencil-tip Needle gauge: 24 G Needle length: 10 cm Medications Administered mepivacaine PF (Carbocaine) 2 % injection - Intrathecal 60 mg - 01/12/2023 11:01:00 AM Assessment Sensory level: T4 Block outcome: block to be assessed in the OR Number of attempts: 1 Procedure assessment: patient tolerated procedure well with no immediate complications Additional Notes Free flow CSF. No Heme. No Parathesia Patient: Andre Blanca Procedure Information Date/Time: 01/12/231199 Procedure: Right Total Knee Arthroplasty (Right: Knee) Location: [address] Operating Room Surgeons: Almas Laureano MD Relevant Problems Anesthesia (+) H/O TIA (transient ischemic attack) and stroke Endo (+) Hypothyroidism Pulmonary (+) COPD (chronic obstructive pulmonary disease) ([facility]) Past Medical History: Past Medical History: No date: Acute kidney failure ([facility]) No date: Acute respiratory failure ([facility]) No date: Acute venous embolism and thrombosis of deep vessels of distal lower extremity, unspecified laterality ([facility]) No date: Aftercare following other joint replacement surgery No date: Bipolar 1 disorder ([facility]) No date: Cerebral artery occlusion No date: Cerebral artery occlusion with cerebral infarction ([facility]) No date: Chest pain No date: COPD (chronic obstructive pulmonary disease) ([facility]) No date: COVID-19 No date: Depression No date: Difficulty walking No date: Displaced fracture of acromial process Comment: right shoulder squela No date: DVT (deep venous thrombosis) ([facility]) No date: Dysarthria and anarthria No date: Dysphagia, oropharyngeal phase No date: Fibromyalgia No date: History of left shoulder replacement No date: Hyperlipidemia No date: Hyperlipidemia No date: Hyperosmolality and hypernatremia No date: Hypokalemia No date: Hypothyroid No date: Hypothyroid No date: Hypoxia No date: IBS (irritable bowel syndrome) No date: IBS (irritable bowel syndrome) No date: Knee pain, right No date: Lack of coordination No date: Left humeral fracture No date: Left shoulder pain No date: MDD (major depressive disorder) No date: Migraine No date: Need for assistance with personal care No date: Obesity No date: RAULITO (obstructive sleep apnea) No date: RAULITO (obstructive sleep apnea) No date: Other symbolic dysfunctions No date: Personal history of transient ischemic attack (TIA), and cerebral infarction without residual deficits No date: Pneumonitis No date: Reduced mobility No date: Repeated falls No date: Syncope No date: Syncope and collapse No date: TIA (transient ischemic attack) No date: Weakness Past Surgical History: Past Surgical History: No date: ARM SURGERY (HISTORICAL); Right No date: ARM SURGERY (HISTORICAL); N/A No date: CHOLECYSTECTOMY No date: HYSTERECTOMY 05/31/2022: OTHER SURGICAL HISTORY Comment: Left femoral endoprosthetic replacement 06/01/2022: OTHER SURGICAL HISTORY; Left Comment: ORIF left olecranon Social History: TOBACCO: reports that she has never smoked. She has never been exposed to tobacco smoke. She has never used smokeless tobacco. ETOH: reports that she does not currently use alcohol. Social History Substance and Sexual Activity Drug Use Never Family History: Family History Problem Relation Name Age of Onset Emphysema Father Alcohol abuse Mother Screening: unknown Clinical information reviewed: Tobacco Allergies Med Hx Surg Hx Fam Hx Soc Hx Physical Exam Airway Mallampati: III TM distance: >3 FB Neck ROM: full Mouth Open: normal Cardiovascular Dental (+) Upper Dentures Pulmonary Abdominal Anesthesia Plan ASA 3 spinal The patient is not a current smoker. Anesthetic plan and risks discussed with patient. patient is NPO RAULITO Screening Labs: Lab Results Component Value Date WBC 8.2 07/07/2022 HGB 10.5 (L) 07/07/2022 HCT 33.6 (L) 07/07/2022 MCV 84.7 07/07/2022 PLT 425 07/07/2022 Lab Results Component Value Date NA 138 07/07/2022 K 3.9 07/07/2022 CL 104 07/07/2022 CO2 27 07/07/2022 BUN 9 07/07/2022 CREATININE 0.62 07/07/2022 GLUCOSE 113 (H) 07/07/2022 CALCIUM 9.1 07/07/2022 PROT 7.4 07/07/2022 ALKPHOS 184 (H) 07/07/2022 AST 36 07/07/2022 ALT 10 07/07/2022 EGFR >90.0 07/07/2022 No echocardiogram results found for the past 14 days 01/12/23 ECG 12-LEAD (Preliminary) This result has not been signed. Information might be incomplete. Impression SINUS RHYTHM BORDERLINE AV CONDUCTION DELAY RIGHT BUNDLE BRANCH BLOCK Compared to ECG 07/07/2022 00:16:44 No significant changes documented in this encounter [facility] 01-12-2023 Note Formatting of this n ote is different from the original. Patient: Andre Blanca Procedure Summary Date: 01/12/23 Room / Location: [address] Operating Room Anesthesia Start: 105 Anesthesia Stop: 130 Procedure: Right Total Knee Arthroplasty (Right: Knee) Diagnosis: Unilateral primary osteoarthritis, right knee (Unilateral primary osteoarthritis, right knee [M17.11]) Surgeons: Almas Laureano MD Responsible Provider: FREDERICK Courtney CRNA Anesthesia Type: spinal ASA Status: 3 Anesthesia Type: spinal Vitals Value Taken Time BP 111/59 01/12/23 1308 Temp 97.2 01/12/23 1308 Pulse 66 01/12/23 1308 Resp 16 01/12/23 1308 SpO2 99 01/12/23 1308 Anesthesia Post Evaluation Patient location during evaluation: PACU Patient participation: complete - patient participated Level of consciousness: awake and alert Pain management: satisfactory to patient Airway patency: patent Dental Injury: no Cardiovascular status: acceptable, blood pressure returned to baseline and hemodynamically stable Respiratory status: acceptable, spontaneous ventilation and face mask Hydration status: euvolemic Nausea/Vomiting: controlled No notable events documented. Patient can be discharged once all PACU criteria has been met. [facility] 01-12-2023 Anesthesiology Postoperative evaluation and management note Patient: Andre Blanca Procedure Summary Date: 01/12/23 Room / Location: [address] Operating Room Anesthesia Start: 1050 Anesthesia Stop: 130 Procedure: Right Total Knee Arthroplasty (Right: Knee) Diagnosis: Unilateral primary osteoarthritis, right knee (Unilateral primary osteoarthritis, right knee [M17.11]) Surgeons: Almas Laureano MD Responsible Provider: FREDERICK Courtney CRNA Anesthesia Type: spinal ASA Status: 3 Anesthesia Type: spinal Vitals Value Taken Time BP 111/59 01/12/23 1307 Temp 97.2 01/12/23 1307 Pulse 66 01/12/23 1307 Resp 16 01/12/23 1307 SpO2 99 01/12/23 1307 Anesthesia Post Evaluation Patient location during evaluation: PACU Patient participation: complete - patient participated Level of consciousness: awake and alert Pain management: satisfactory to patient Multimodal analgesia pain management approach Airway patency: patent Two or more strategies used to mitigate risk of obstructive sleep apnea Cardiovascular status: acceptable and hemodynamically stable Respiratory status: acceptable, spontaneous ventilation and face mask Hydration status: acceptable No notable events documented. MIPS #430 PONV Patient did not receive an inhalational anesthetic (XX430) MIPS # 424 Perioperative Temperature Management Anesthesia time was 60 minutes or longer (4255F) Anesthesai administered was General (inhalational or TIVA) or Neuraxial block (X0424) At least one body temperature greater than 95.8F/35.5C achieved within the 30 mins immediately prior to or the 15 minutes immediately following anesthesia end time (G9771) MIPS #477 Multimodal Pain Management Not emergent case Patient was administered multimodal pain management (two or more drugs and/or interventions excluding systemic opioids) in the periopeartive period occurring at some time between 6 hours prior to anesthesia start time until discharged from PACU (G2148) MIPS #404 Anesthesiology Smoking Abstinence The patient is not a current smoker (e.g. cigarette, cigar, pipe, e-cigarette/vaping/marijuana) If no stop here (XX404) I completed my handoff to the receiving clinician during which we: 1. Identified the patient 2. Identified the responsible provider 3. Reviewed the pertinent medical history 4. Discussed the surgical course 5. Reviewed intra-op anesthesia management and issues during anesthesia 6. Set expectations for post-procedure period 7. Allowed opportunity for questions and acknowledgement of understanding. [facility] 01-12-2023 Procedure anesthe oly Narrative Procedure Name Responsible Anesthesiologist Anesthesia Start Time Anesthesia Stop Time Right Total Knee Arthroplasty (Right: Knee) Michel Zambrano MD 01/12/23 1051 01/12/23 1307 Events Date Time Event Comment 01/12/2023 1000 1013 AN Preop Started 1050 In Room 1051 An Start 1051 An Start Data 1102 Anesthesia Ready 1129 Proc Start 1247 an stop data 1249 Proc Fin 1249 Out of Room 1307 An Stop Meds Name Total midazolam (Versed) injection 2 mg/2 mL 2 mg phenylephrine syringe 1 mg/ 10 mL syring e (IV Push for HYPOTENSION) 400 mcg tranexamic acid (Cyklokapron) 2,000 mg ceFAZolin in dextrose 4% (Ancef) IVPB 2, 000 mg 2,000 mg dexAMETHasone (Decadron) injection 4 mg/ mL 8 mg propofol (Diprivan) infusion 10 mg/mL 94 2.99 mg mepivacaine PF (Carbocaine) 2 % injectio n 60 mg hdfKIGHRmusvo-eufekzeqevd-cjiscceaoiw (T AP) syringe 30 mL lactated Ringer's infusion 500 mL * Agents No agents on file. * Blood No blood administrations on file. Lines, Drains, and Airways Type Details Placement Removal Wound/Incision 01/12/23; Incision; Knee; Anterior, Right 01/12/23 0000 by Liliana Ceja RN Peripheral IV Placement Date: 09/05; Placement Time: 1030; Catheter Size: 20 G; Orientation: Anterior, Left; Location: Forearm; Site Prep: Alcohol; Local Anesth: Injectable; Technique: Ultrasound guidance; Insertion Attempts: 3 (by 2 RNs); Difficult Venous Access? Yes; Patient Tolerance: Tolerated well 01/12/23 1030 by Paula Armstrong RN documented in this encounter [id number] Note* Care Coordination - Nikole Peralta RN - 01/12/2023 11:41 AM EDT Pt is a [facility] resident at [facility], 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 Response from facility: [facility] Alert: YES response from [facility] re: Referral [id number] for patient in [facility]13: Yes, willing to accept patient LTC , she is currently on a bed hold I will get a Skilled Auth for her to return.... but will not delay her return... [facility] [id number] Note* Care Coordination - Nikole Peralta RN - 01/12/2023 11:41 AM EDT Pt is a [facility] resident at [facility], 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 Response from facility: [facility] Alert: YES response from [facility] re: Referral [id number] [facility] in [facility]13: Yes, willing to accept patient LTC , she is currently on a bed hold I will get a Skilled Auth for her to return.... but will not delay her return... [facility] [id number] Note* Care Coordination - Rivera Vo - 01/12/2023 11:24 AM EDT Referral placed to return back to [facility] via [facility] per TCC request. Await review and response regarding ability to accept. TCC notified. [id number] Note* Care Coordination - Rivera Vo - 01/12/2023 11:24 AM EDT Referral placed to return back to [facility] via [facility] per TCC request. Await review and response regarding ability to accept. TCC notified. [facility] [id number] Anesthesiology procedure note* Anesthesia Procedure Notes - FREDERICK Courtney CRNA - 01/12/2023 10:52 AM EDTAssociated Order(s): Spinal Block Spinal Block Time Out: 01/12/2023 10:54 AM Patient location during procedure: OR Start time: 01/12/2023 10:55 AM End time: 01/12/2023 11:02 AM Reason for block: primary anesthetic Staffing Performed: BREAKER MACHINE TENDER Resident/BREAKER MACHINE TENDER: FREDERICK Courtney CRNA Preanesthetic Checklist Completed: patient identified, IV checked, site marked, risks and benefits discussed, surgical consent, monitors and equipment checked, pre-op evaluation and timeout performed Spinal Block Patient position: sitting Prep: ChloraPrep Sterility prep: gloves, hand hygiene and mask Sedation level: light sedation Patient monitoring: continuous pulse oximetry and heart rate Approach: midline Location: L3-4 Injection technique: single-shot Needle Needle type: pencil-tip Needle gauge: 24 G Needle length: 10 cm Medications Administered mepivacaine PF (Carbocaine) 2 % injection - Intrathecal 60 mg - 01/12/2023 11:01:00 AM Assessment Sensory level: T4 Block outcome: block to be assessed in the OR Number of attempts: 1 Procedure assessment: patient tolerated procedure well with no immediate complications Additional Notes Free flow CSF. No Heme. No Parathesia [facility] [id number] Note* Op Note - Almas Laureano MD - 01/12/2023 10:50 AM EDT Operative Report Patient Name: Andre Blanca Date of : 1950 Date of Surgery: 01/12/23 DATE OF SURGERY: 01/12/23 PREOPERATIVE DIAGNOSIS: RIGHT Knee Degenerative Arthritis - M17.11 POSTOPERATIVE DIAGNOSIS: Same. PROCEDURE PERFORMED: Right Total Knee Arthroplasty, Kinematic Alignment SURGEON: Almas Laureano MD ASSISTANTS: Anup ROMEOY-IV and Salo FREEMAN ANESTHESIA: Spinal, MAC, Nerve Block, and Local INTRAVENOUS FLUIDS: 1,500 mL ESTIMATED BLOOD LOSS: 100 mL TOURNIQUET TIME: 0 minutes DRAIN: None COMPLICATIONS: Patient tolerated the procedure well without anesthetic or surgical/operative complications. SPECIMENS: None COMPONENTS: DePuy Attune CR femoral component size 5, tibial component size 7, 5 MS tibial polyethylene insert, 35mm patellar component. INTRAOPERATIVE FINDINGS: Intraoperative findings confirmed the radiographic findings of degenerative arthritis characterized by loss of articular cartilage, subchondral sclerosis and marginal osteophytes in all three compartments of the knee. TISSUE REMOVED OR ALTERED: Periarticular bone removed via standard resection. COMORBIDITIES: Acute kidney failure ([facility]) Acute respiratory failure ([facility]) Acute venous embolism and thrombosis of deep vessels of distal lower extremity, unspecified laterality ([facility]) Aftercare following other joint replacement surgery Bipolar 1 disorder ([facility]) Cerebral artery occlusion Cerebral artery occlusion with cerebral infarction ([facility]) Chest pain COPD (chronic obstructive pulmonary disease) ([facility]) COVID-19 Depression Difficulty walking Displaced fracture of acromial process right shoulder squela DVT (deep venous thrombosis) ([facility]) Dysarthria and anarthria Dysphagia, oropharyngeal phase Fibromyalgia History of left shoulder replacement Hyperlipidemia Hyperlipidemia Hyperosmolality and hypernatremia Hypokalemia Hypothyroid Hypothyroid Hypoxia IBS (irritable bowel syndrome) IBS (irritable bowel syndrome) Knee pain, right Lack of coordination Left humeral fracture Left shoulder pain MDD (major depressive disorder) Migraine Need for assistance with personal care Obesity RAULITO (obstructive sleep apnea) RAULITO (obstructive sleep apnea) Other symbolic dysfunctions Personal history of transient ischemic attack (TIA), and cerebral infarction without residual deficits Pneumonitis Reduced mobility Repeated falls Syncope Syncope and collapse TIA (transient ischemic attack) Weakness OPERATIVE NOTE ADDENDUM: None HISTORY: The patient has progressive and debilitating knee pain secondary to end-stage osteoarthritis. The patient has clinical and radiographic evidence of end-stage degenerative joint disease of the knee and has failed nonoperative management. The patient was deemed appropriate for a total knee arthroplasty. Risks, benefits and alternatives to surgical treatment were discussed in detail with the patient and they wish to proceed with the total knee replacement. The patient was seen and thoroughly evaluated by a perioperative special forces medical sergeant preoperatively and was optimized for surgical intervention. SURGICAL PROCEDURE: The patient was identified in the preoperative holding area and the correct knee was identified and marked. The patient was then brought to the operating room where a satisfactorylevel of anesthesia was obtained by the anesthesia service. Pre-scrub of the operative extremity was completed with alcohol solution. IV antibiotics and tranexamic acid were administered. The leg wasprepped with Chloroprep and draped in standard sterile fashion. A surgical time out was called, identifying the correct patient, correct extremity, correct procedure, and that IV antibiotics had beenappropriately given, in addition to identifying that the surgical implants, radiographs, and vendors were available in the operating room. An anterior longitudinal incision was made. Sharp dissection was carried down through the skin and subcutaneous tissue and a median parapatellar arthrotomy was performed, leaving a cuff of tendon adjacent to the VMO to facilitate closure. The anteromedial retinaculum was elevated off the medial tibia and subperiosteal dissection was performed underneath the deep medial collateral ligament. The superficial MCL was protected with a 45-degree bent Hohmann retractor. The retropatellar fat pad was excised to facilitate exposure. The lateral patellofemoral ligament was released and the patella was subluxated into the lateral gutter of the knee. The knee was then brought into flexion and a right angle retractor was placed lateral to the tibia to protect the lateral sided structures and the patella. The anterior cruciate ligament was divided. Any remaining cartilage on the affected compartment was removed with a curette and/or oscillating saw. The other compartment was intact. We then obtained access to the femoral canal with the stepped drill. An intramedullary blanquita was placed. The appropriate valgus angle was replicated accounting for cartilage loss with a 2mm spacer, visualizing the paddles were flush with distal femur. The appropriate resection depth was set based on i mplant thickness. The distal femoral cut was made with an oscillating saw while the medial and lateral collateral ligaments were protected with retractors. The cuts were verified with a caliper to shafer appropriate resection. The anteroposterior femoral sizing guide was then inserted onto the distal femur with the feet along the posterior femoral condyles and the sizing boom impacting the anterior femoral surface. The femoral component that would best reproduce the patient's anteroposterior anatomical dimensions without notching was determined, the rotation dialed in appropriately by visualizing [place]'s line. Alignment holes drilled. The femoral four-in-one block was then placed onto the distal femur, assessed to ensure anadequate mediolateral dimension, and secured with threaded pins. A comma guide was used to confirm adequate anterior clearance to avoid femoral notching. With the medial and lateral collateral ligaments protected with retractors, the femoral finishing cuts were made in the following order with an oscillating saw: anterior, posterior condyles, anterior chamfers,posterior chamfers. The finishing guide was removed and all bony fragments were removed carefully. The notch cut was performed according to protocol. Attention was then turned to the tibia. A double-prong PCL retractor was placed posterior to the tibia, retracting the tibia anteriorly. A medial 45 degree bent Hohmann and a 90 degree bent lateral retractor was maintained to protect the collateral ligaments. Medial and lateral meniscal remnants were excised with Bovie electrocautery. The extramedullary tibial cutting guide was then aligned with the long axis of the tibia and the cutting guide pegged perpendicular to the mechanical axis. The guide was set to a depth to take the appropriate resection off the medial and lateral surfaces based on preoperative templating and intra-operative landmarks. The cut was approximated by referencing the intact cartilage medial and lateral to the tibial eminence, attempting to cut perpendicular at a right angle formed by bisecting the two sides. Guide was pinned. An oscillating saw was used to cut the medial and lateral articular surfaces.An osteotome was used to carefully elevate the articular surface and then removed from the soft tissues with a bovie electrocautery. The trial tibial baseplate was set onto the cut surface, felt to be the appropriate size and the alignment checked with the alignment blanquita. The alignment blanquita was used to verify slope was appropriate and that varus/valgus alignment was appropriate given the patient's anatomy and pre- operative deformity. Residual marginal medial tibial osteophytes were resected to avoid tenting of the medial collateral ligament. Lamina spreaders were used to expose the posterior aspect of the knee. Residual posterior femoral condylar osteophytes were resected with a curved osteotome and removed carefully with a pituitary rongeur. The medial and lateral compartments were then assessed for symmetry with gap roving or yarn color checker blocks, in both flexion and extension, to ensure symmetrical extension gap, and a slight trapezoidal flexion gap. The gaps were able to be fined tuned by re-cutting the tibia if needed in order to ensure a solid extension space. The trial femoral and tibial components were inserted with the articular trial liner insert and the components were observed to fit well. The knee was taken through a full range of motion and found to demonstrate full extension without residual flexion contracture with the trial tibial insert. The PCL was maintained, appropriate flexion gap balancing was appreciated.. Full flexion was obtained without anterior tibial trial liftoffand did not demonstrate any flexion instability. The tibial component was allowed to float and optimize its rotation and anteroposterior translation. Tibiofemoral kinematics was optimized in 90 degrees of flexion and the rotation was then marked with a Bovie and corresponded approximately to the medial portion of the tibial tubercle. Coronal alignment was appropriate and symmetric medial and lateral gap balancing was present with varus and valgus stress at 0 and 30 degrees to 1 mm or less difference. Medial flexion space was tight to about 1- 2mm of laxity with slightly more laxity laterally in flexion accepted/preferred. Attention was then turned to the patella. The knee was kept in full extension, the patella was heldsecurely with two towel clips and was measured with calipers. An oscillating saw was used to cut the articular surface with free hand technique to a depth that restored the pre-resection patellar thickness. Calipers were then used to measure and ensure an adequate residual thickness and confirm a symmetrical cut in all four quadrants. Three peg holes were then drilled using the template guide andthe trial component was inserted. The knee taken through range of motion and patellofemoral tracking was observed to be satisfactory. All trial components except for the tibial trial were removed. The tibial trial was then pegged securely into place in the correct rotation. The tibia was then prepared with the tibial drill guide and keeled punch impactor. All sclerotic surfaces were prepared with small drill holes to facilitate cement interdigitation. All bony surfaces were cleaned thoroughly with Pulsavac lavage and dried, and then further prepared with compressed sterile carbon dioxide to enhance cement fixation. The actual implants were brought onto the surgical field and assembled. Simplex low viscosity cement with 750mg of cefuroxime per batch was prepared and the components were securely cemented with pressurization. The cement was allowedto cure with the knee held in extension and visual confirmation of secure component fixation was obtained in all components. While the knee was in extension and the cement drying, a kanwal- articular solution was injected into the kanwal-articular tissues including the retinaculum, synovium, quadriceps tendon and VMO, taking care to avoid any neurovascular structures. Upon drying, all extraneous cement was removed from the implant edges, the trial insert was removed and cement removed from all aspects of the knee, including the posterior condyles. The knee was vigorously irrigated with Pulsavac lavage to remove any cement particles and the final polyethylene tibial component was inserted and impacted into a locked position. The knee demonstrated satisfactory coronal alignment, soft tissue balancing, and patellofemoral tracking. Hemostasis was assured to be obtained prior to closure. Attention was then turned to closure. Dilute betadine solution was used to soak in the knee for 3 minutes. Three liters of pulsavac lavage was then used to irrigate out the knee. The medial arthrotomy was closed in full knee flexion with a #1 Vicryl suture for the high tension areas superior to andat the level of the equator of the patella, followed by running #1 Stratafix barbed monofilament suture to close the entire arthrotomy. No deep fatty tissue closure was necessary. The dermal layer was closed with interrupted 2-0 Vicryl sutures and the skin was closed with a running 3-0 monocryl subcuticular closure. Dermabond was used with Prineo. A sterile OpSite dressing was placed, Jerardo wrap, and cryotherapy was applied. All sponge and needle counts were correct at the end of the surgery and I was present during all critical aspects of the surgical procedure. The patient was transferred to the recovery room. [id number] Note* Op Note - Almas Laureano MD - 01/12/2023 10:50 AM EDT Operative Report Patient Name: Andre Blanca Date of : 1950 Date of Surgery: 01/12/23 DATE OF SURGERY: 01/12/23 PREOPERATIVE DIAGNOSIS: RIGHT Knee Degenerative Arthritis - M17.11 POSTOPERATIVE DIAGNOSIS: Same. PROCEDURE PERFORMED: Right Total Knee Arthroplasty, Kinematic Alignment SURGEON: Almas Laureano MD ASSISTANTS: Anup PGY-IV and Salo FREEMAN ANESTHESIA: Spinal, MAC, Nerve Block, and Local INTRAVENOUS FLUIDS: 1,500 mL ESTIMATED BLOOD LOSS: 100 mL TOURNIQUET TIME: 0 minutes DRAIN: None COMPLICATIONS: Patient tolerated the procedure well without anesthetic or surgical/operative complications. SPECIMENS: None COMPONENTS: DePuy Attune CR femoral component size 5, tibial component size 7, 5 MS tibial polyethylene insert, 35mm patellar component. INTRAOPERATIVE FINDINGS: Intraoperative findings confirmed the radiographic findings of degenerative arthritis characterized by loss of articular cartilage, subchondral sclerosis and marginal osteophytes in all three compartments of the knee. TISSUE REMOVED OR ALTERED: Periarticular bone removed via standard resection. COMORBIDITIES: Acute kidney failure ([facility]) Acute respiratory failure ([facility]) Acute venous embolism and thrombosis of deep vessels of distal lower extremity, unspecified laterality ([facility]) Aftercare following other joint replacement surgery Bipolar 1 disorder ([facility]) Cerebral artery occlusion Cerebral artery occlusion with cerebral infarction ([facility]) Chest pain COPD (chronic obstructive pulmonary disease) ([facility]) COVID-19 Depression Difficulty walking Displaced fracture of acromial process right shoulder squela DVT (deep venous thrombosis) ([facility]) Dysarthria and anarthria Dysphagia, oropharyngeal phase Fibromyalgia History of left shoulder replacement Hyperlipidemia Hyperlipidemia Hyperosmolality and hypernatremia Hypokalemia Hypothyroid Hypothyroid Hypoxia IBS (irritable bowel syndrome) IBS (irritable bowel syndrome) Knee pain, right Lack of coordination Left humeral fracture Left shoulder pain MDD (major depressive disorder) Migraine Need for assistance with personal care Obesity RAULITO (obstructive sleep apnea) RAULITO (obstructive sleep apnea) Other symbolic dysfunctions Personal history of transient ischemic attack (TIA), and cerebral infarction without residual deficits Pneumonitis Reduced mobility Repeated falls Syncope Syncope and collapse TIA (transient ischemic attack) Weakness OPERATIVE NOTE ADDENDUM: None HISTORY: The patient has progressive and debilitating knee pain secondary to end-stage osteoarthritis. The patient has clinical and radiographic evidence of end-stage degenerative joint disease of the knee and has failed nonoperative management. The patient was deemed appropriate for a total knee arthroplasty. Risks, benefits and alternatives to surgical treatment were discussed in detail with the patient and they wish to proceed with the total knee replacement. The patient was seen and thoroughly evaluated by a perioperative special forces medical sergeant preoperatively and was optimized for surgical intervention. SURGICAL PROCEDURE: The patient was identified in the preoperative holding area and the correct knee was identified and marked. The patient was then brought to the operating room where a satisfactorylevel of anesthesia was obtained by the anesthesia service. Pre-scrub of the operative extremity was completed with alcohol solution. IV antibiotics and tranexamic acid were administered. The leg wasprepped with Chloroprep and draped in standard sterile fashion. A surgical time out was called, identifying the correct patient, correct extremity, correct procedure, and that IV antibiotics had beenappropriately given, in addition to identifying that the surgical implants, radiographs, and vendors were available in the operating room. An anterior longitudinal incision was made. Sharp dissection was carried down through the skin and subcutaneous tissue and a median parapatellar arthrotomy was performed, leaving a cuff of tendon adjacent to the VMO to facilitate closure. The anteromedial retinaculum was elevated off the medial tibia and subperiosteal dissection was performed underneath the deep medial collateral ligament. The superficial MCL was protected with a 45-degree bent Hohmann retractor. The retropatellar fat pad was excised to facilitate exposure. The lateral patellofemoral ligament was released and the patella was subluxated into the lateral gutter of the knee. The knee was then brought into flexion and a right angle retractor was placed lateral to the tibia to protect the lateral sided structures and the patella. The anterior cruciate ligament was divided. Any remaining cartilage on the affected compartment was removed with a curette and/or oscillating saw. The other compartment was intact. We then obtained access to the femoral canal with the stepped drill. An intramedullary blanquita was placed. The appropriate valgus angle was replicated accounting for cartilage loss with a 2mm spacer, visualizing the paddles were flush with distal femur. The appropriate resection depth was set based on i mplant thickness. The distal femoral cut was made with an oscillating saw while the medial and lateral collateral ligaments were protected with retractors. The cuts were verified with a caliper to shafer appropriate resection. The anteroposterior femoral sizing guide was then inserted onto the distal femur with the feet along the posterior femoral condyles and the sizing boom impacting the anterior femoral surface. The femoral component that would best reproduce the patient's anteroposterior anatomical dimensions without notching was determined, the rotation dialed in appropriately by visualizing [place]'s line. Alignment holes drilled. The femoral four-in-one block was then placed onto the distal femur, assessed to ensure anadequate mediolateral dimension, and secured with threaded pins. A comma guide was used to confirm adequate anterior clearance to avoid femoral notching. With the medial and lateral collateral ligaments protected with retractors, the femoral finishing cuts were made in the following order with an oscillating saw: anterior, posterior condyles, anterior chamfers,posterior chamfers. The finishing guide was removed and all bony fragments were removed carefully. The notch cut was performed according to protocol. Attention was then turned to the tibia. A double-prong PCL retractor was placed posterior to the tibia, retracting the tibia anteriorly. A medial 45 degree bent Hohmann and a 90 degree bent lateral retractor was maintained to protect the collateral ligaments. Medial and lateral meniscal remnants were excised with Bovie electrocautery. The extramedullary tibial cutting guide was then aligned with the long axis of the tibia and the cutting guide pegged perpendicular to the mechanical axis. The guide was set to a depth to take the appropriate resection off the medial and lateral surfaces based on preoperative templating and intra-operative landmarks. The cut was approximated by referencing the intact cartilage medial and lateral to the tibial eminence, attempting to cut perpendicular at a right angle formed by bisecting the two sides. Guide was pinned. An oscillating saw was used to cut the medial and lateral articular surfaces.An osteotome was used to carefully elevate the articular surface and then removed from the soft tissues with a bovie electrocautery. The trial tibial baseplate was set onto the cut surface, felt to be the appropriate size and the alignment checked with the alignment blanquita. The alignment blanquita was used to verify slope was appropriate and that varus/valgus alignment was appropriate given the patient's anatomy and pre- operative deformity. Residual marginal medial tibial osteophytes were resected to avoid tenting of the medial collateral ligament. Lamina spreaders were used to expose the posterior aspect of the knee. Residual posterior femoral condylar osteophytes were resected with a curved osteotome and removed carefully with a pituitary rongeur. The medial and lateral compartments were then assessed for symmetry with gap roving or yarn color checker blocks, in both flexion and extension, to ensure symmetrical extension gap, and a slight trapezoidal flexion gap. The gaps were able to be fined tuned by re-cutting the tibia if needed in order to ensure a solid extension space. The trial femoral and tibial components were inserted with the articular trial liner insert and the components were observed to fit well. The knee was taken through a full range of motion and found to demonstrate full extension without residual flexion contracture with the trial tibial insert. The PCL was maintained, appropriate flexion gap balancing was appreciated.. Full flexion was obtained without anterior tibial trial liftoffand did not demonstrate any flexion instability. The tibial component was allowed to float and optimize its rotation and anteroposterior translation. Tibiofemoral kinematics was optimized in 90 degrees of flexion and the rotation was then marked with a Bovie and corresponded approximately to the medial portion of the tibial tubercle. Coronal alignment was appropriate and symmetric medial and lateral gap balancing was present with varus and valgus stress at 0 and 30 degrees to 1 mm or less difference. Medial flexion space was tight to about 1- 2mm of laxity with slightly more laxity laterally in flexion accepted/preferred. Attention was then turned to the patella. The knee was kept in full extension, the patella was heldsecurely with two towel clips and was measured with calipers. An oscillating saw was used to cut the articular surface with free hand technique to a depth that restored the pre-resection patellar thickness. Calipers were then used to measure and ensure an adequate residual thickness and confirm a symmetrical cut in all four quadrants. Three peg holes were then drilled using the template guide andthe trial component was inserted. The knee taken through range of motion and patellofemoral tracking was observed to be satisfactory. All trial components except for the tibial trial were removed. The tibial trial was then pegged securely into place in the correct rotation. The tibia was then prepared with the tibial drill guide and keeled punch impactor. All sclerotic surfaces were prepared with small drill holes to facilitate cement interdigitation. All bony surfaces were cleaned thoroughly with Pulsavac lavage and dried, and then further prepared with compressed sterile carbon dioxide to enhance cement fixation. The actual implants were brought onto the surgical field and assembled. Simplex low viscosity cement with 750mg of cefuroxime per batch was prepared and the components were securely cemented with pressurization. The cement was allowedto cure with the knee held in extension and visual confirmation of secure component fixation was obtained in all components. While the knee was in extension and the cement drying, a kanwal- articular solution was injected into the kanwal-articular tissues including the retinaculum, synovium, quadriceps tendon and VMO, taking care to avoid any neurovascular structures. Upon drying, all extraneous cement was removed from the implant edges, the trial insert was removed and cement removed from all aspects of the knee, including the posterior condyles. The knee was vigorously irrigated with Pulsavac lavage to remove any cement particles and the final polyethylene tibial component was inserted and impacted into a locked position. The knee demonstrated satisfactory coronal alignment, soft tissue balancing, and patellofemoral tracking. Hemostasis was assured to be obtained prior to closure. Attention was then turned to closure. Dilute betadine solution was used to soak in the knee for 3 minutes. Three liters of pulsavac lavage was then used to irrigate out the knee. The medial arthrotomy was closed in full knee flexion with a #1 Vicryl suture for the high tension areas superior to andat the level of the equator of the patella, followed by running #1 Stratafix barbed monofilament suture to close the entire arthrotomy. No deep fatty tissue closure was necessary. The dermal layer was closed with interrupted 2-0 Vicryl sutures and the skin was closed with a running 3-0 monocryl subcuticular closure. Dermabond was used with Prineo. A sterile OpSite dressing was placed, Jerardo wrap, and cryotherapy was applied. All sponge and needle counts were correct at the end of the surgery and I was present during all critical aspects of the surgical procedure. The patient was transferred to the recovery room. [facility] [id number] Anesthesiology Preoperative evaluation and management note* Anesthesia Preprocedure Evaluation - Michel Zambrano MD - 01/12/2023 9:58 AM EDT Patient: Andre Blanca Procedure Information Date/Time: 01/12/231199 Procedure: Right Total Knee Arthroplasty (Right: Knee) Location: [address] Operating Room Surgeons: Almas Laureano MD Relevant Problems Anesthesia (+) H/O TIA (transient ischemic attack) and stroke Endo (+) Hypothyroidism Pulmonary (+) COPD (chronic obstructive pulmonary disease) ([facility]) Past Medical History: Past Medical History: No date: Acute kidney failure ([facility]) No date: Acute respiratory failure ([facility]) No date: Acute venous embolism and thrombosis of deep vessels of distal lower extremity, unspecified laterality ([facility]) No date: Aftercare following other joint replacement surgery No date: Bipolar 1 disorder ([facility]) No date: Cerebral artery occlusion No date: Cerebral artery occlusion with cerebral infarction ([facility]) No date: Chest pain No date: COPD (chronic obstructive pulmonary disease) ([facility]) No date: COVID-19 No date: Depression No date: Difficulty walking No date: Displaced fracture of acromial process Comment: right shoulder squela No date: DVT (deep venous thrombosis) ([facility]) No date: Dysarthria and anarthria No date: Dysphagia, oropharyngeal phase No date: Fibromyalgia No date: History of left shoulder replacement No date: Hyperlipidemia No date: Hyperlipidemia No date: Hyperosmolality and hypernatremia No date: Hypokalemia No date: Hypothyroid No date: Hypothyroid No date: Hypoxia No date: IBS (irritable bowel syndrome) No date: IBS (irritable bowel syndrome) No date: Knee pain, right No date: Lack of coordination No date: Left humeral fracture No date: Left shoulder pain No date: MDD (major depressive disorder) No date: Migraine No date: Need for assistance with personal care No date: Obesity No date: RAULITO (obstructive sleep apnea) No date: RAULITO (obstructive sleep apnea) No date: Other symbolic dysfunctions No date: Personal history of transient ischemic attack (TIA), and cerebral infarction without residual deficits No date: Pneumonitis No date: Reduced mobility No date: Repeated falls No date: Syncope No date: Syncope and collapse No date: TIA (transient ischemic attack) No date: Weakness Past Surgical History: Past Surgical History: No date: ARM SURGERY (HISTORICAL); Right No date: ARM SURGERY (HISTORICAL); N/A No date: CHOLECYSTECTOMY No date: HYSTERECTOMY 05/31/2022: OTHER SURGICAL HISTORY Comment: Left femoral endoprosthetic replacement 06/01/2022: OTHER SURGICAL HISTORY; Left Comment: ORIF left olecranon Social History: TOBACCO: reports that she has never smoked. She has never been exposed to tobacco smoke. She has never used smokeless tobacco. ETOH: reports that she does not currently use alcohol. Social History Substance and Sexual Activity Drug Use Never Family History: Family History Problem Relation Name Age of Onset Emphysema Father Alcohol abuse Mother Screening: unknown Clinical information reviewed: Tobacco Allergies Med Hx Surg Hx Fam Hx Soc Hx Physical Exam Airway Mallampati: III TM distance: >3 FB Neck ROM: full Mouth Open: normal Cardiovascular Dental (+) Upper Dentures Pulmonary Abdominal Anesthesia Plan ASA 3 spinal The patient is not a current smoker. Anesthetic plan and risks discussed with patient. patient is NPO RAULITO Screening Labs: Lab Results Component Value Date WBC 8.2 07/07/2022 HGB 10.5 (L) 07/07/2022 HCT 33.6 (L) 07/07/2022 MCV 84.7 07/07/2022 PLT 425 07/07/2022 Lab Results Component Value Date NA 138 07/07/2022 K 3.9 07/07/2022 CL 104 07/07/2022 CO2 27 07/07/2022 BUN 9 07/07/2022 CREATININE 0.62 07/07/2022 GLUCOSE 113 (H) 07/07/2022 CALCIUM 9.1 07/07/2022 PROT 7.4 07/07/2022 ALKPHOS 184 (H) 07/07/2022 AST 36 07/07/2022 ALT 10 07/07/2022 EGFR >90.0 07/07/2022 No echocardiogram results found for the past 14 days 01/12/23 ECG 12-LEAD (Preliminary) This result has not been signed. Information might be incomplete. Impression SINUS RHYTHM BORDERLINE AV CONDUCTION DELAY RIGHT BUNDLE BRANCH BLOCK Compared to ECG 07/07/2022 00:16:44 No significant changes [employer] Work Phone: [phone] 432-845206-01-2023 History and physical note* Almas Laureano MD - 01/12/2023 8:00 AM EDT Andre Blanca is an 72 y.o. female. Reason for Visit Right knee pain, here for TKA History of Present Illness HPI 72 yo F with history of right knee pain. Here for right total knee. See office note for full details. Medical history review: Past Medical History: Diagnosis Date Acute kidney failure ([facility]) Acute respiratory failure ([facility]) Acute venous embolism and thrombosis of deep vessels of distal lower extremity, unspecified laterality ([facility]) Aftercare following other joint replacement surgery Bipolar 1 disorder ([facility]) Cerebral artery occlusion Cerebral artery occlusion with cerebral infarction ([facility]) Chest pain COPD (chronic obstructive pulmonary disease) ([facility]) COVID-19 Depression Difficulty walking Displaced fracture of acromial process right shoulder squela DVT (deep venous thrombosis) ([facility]) Dysarthria and anarthria Dysphagia, oropharyngeal phase Fibromyalgia History of left shoulder replacement Hyperlipidemia Hyperlipidemia Hyperosmolality and hypernatremia Hypokalemia Hypothyroid Hypothyroid Hypoxia IBS (irritable bowel syndrome) IBS (irritable bowel syndrome) Knee pain, right Lack of coordination Left humeral fracture Left shoulder pain MDD (major depressive disorder) Migraine Need for assistance with personal care Obesity RAULITO (obstructive sleep apnea) RAULITO (obstructive sleep apnea) Other symbolic dysfunctions Personal history of transient ischemic attack (TIA), and cerebral infarction without residual deficits Pneumonitis Reduced mobility Repeated falls Syncope Syncope and collapse TIA (transient ischemic attack) Weakness Surgical history review: Past Surgical History: Procedure Laterality Date ARM SURGERY (HISTORICAL) Right ARM SURGERY (HISTORICAL) N/A CHOLECYSTECTOMY HYSTERECTOMY OTHER SURGICAL HISTORY 05/31/2022 Left femoral endoprosthetic replacement OTHER SURGICAL HISTORY Left 06/01/2022 ORIF left olecranon Current medications review: * No intraprocedure medications in log * Allergies review: Sulfamethoxazole-trimethoprim, Aspirin, Ibuprofen, and Sumatriptan Family history review: Family History Problem Relation Name Age of Onset Emphysema Father Alcohol abuse Mother Social history review: Social History Tobacco Use Smoking status: Never Passive exposure: Never Smokeless tobacco: Never Substance Use Topics Alcohol use: Not Currently Drug use: Never Vascular Access: IV for surgery Review of Systems: Review of Systems Constitutional: Negative for activity change, appetite change, chills and fatigue. HENT: Negative for congestion, dental problem, ear pain and sinus pain. Eyes: Negative for pain, discharge and redness. Respiratory: Negative for apnea, cough, choking and shortness of breath. Cardiovascular: Negative for chest pain, palpitations and leg swelling. Gastrointestinal: Negative for abdominal distention, abdominal pain, anal bleeding and blood in stool. Endocrine: Negative for cold intolerance, heat intolerance and polydipsia. Genitourinary: Negative for difficulty urinating, dysuria and flank pain. Musculoskeletal: Positive for arthralgias and gait problem. Negative for joint swelling. Skin: Negative for color change, pallor and rash. Allergic/Immunologic: Negative for environmental allergies, food allergies and immunocompromised state. Neurological: Negative for seizures, syncope and weakness. Hematological: Negative for adenopathy. Does not bruise/bleed easily. Psychiatric/Behavioral: Negative for agitation, behavioral problems and confusion. Physical Exam Physical Exam Constitutional: Appearance: Normal appearance. She is normal weight. HENT: Head: Normocephalic. Right Ear: There is no impacted cerumen. Left Ear: There is no impacted cerumen. Nose: No congestion or rhinorrhea. Mouth/Throat: Pharynx: No oropharyngeal exudate or posterior oropharyngeal erythema. Eyes: General: No scleral icterus. Right eye: No discharge. Left eye: No discharge. Neck: Vascular: No carotid bruit. Cardiovascular: Rate and Rhythm: Normal rate and regular rhythm. Pulses: Normal pulses. Heart sounds: Normal heart sounds. Pulmonary: Effort: No respiratory distress. Breath sounds: No stridor. No wheezing. Abdominal: General: There is no distension. Palpations: There is no mass. Tenderness: There is no abdominal tenderness. There is no guarding. Musculoskeletal: General: Tenderness present. No swelling or signs of injury. Cervical back: No rigidity or tenderness. Lymphadenopathy: Cervical: No cervical adenopathy. Skin: Capillary Refill: Capillary refill takes less than 2 seconds. Coloration: Skin is not jaundiced. Findings: No bruising, erythema or rash. Neurological: Mental Status: She is alert. Cranial Nerves: No cranial nerve deficit. Motor: No weakness. Gait: Gait normal. Psychiatric: Mood and Affect: Mood normal. Behavior: Behavior normal. Thought Content: Thought content normal. Intake/Output this shift: No intake/output data recorded. Intake/Output last 3 shifts: No intake/output data recorded. Lab Results Review: Pre-op EKG done this morning, reviewed by anesthesia. Hb 11.2. Radiology Results Review: Yes Other Results Review: None Assessment/Plan Problem list: Principal Problem: Primary osteoarthritis of right knee Orders Placed This Encounter Procedures Post Procedure Recovery Standing Status: Standing Number of Occurrences: 1 Diagnosis: Right knee osteoarthritis Plan Right TKA [place] Work Phone: [phone] 119-192606-01-2023 History and physical note* Almas Laureano MD - 01/12/2023 8:00 AM EDT Andre Blanca is an 72 y.o. female. Reason for Visit Right knee pain, here for TKA History of Present Illness HPI 72 yo F with history of right knee pain. Here for right total knee. See office note for full details. Medical history review: Past Medical History: Diagnosis Date Acute kidney failure (HCC) Acute respiratory failure (HCC) Acute venous embolism and thrombosis of deep vessels of distal lower extremity, unspecified laterality (HCC) Aftercare following other joint replacement surgery Bipolar 1 disorder (HCC) Cerebral artery occlusion Cerebral artery occlusion with cerebral infarction (HCC) Chest pain COPD (chronic obstructive pulmonary disease) (HCC) COVID-19 Depression Difficulty walking Displaced fracture of acromial process right shoulder squela DVT (deep venous thrombosis) ([facility]) Dysarthria and anarthria Dysphagia, oropharyngeal phase Fibromyalgia History of left shoulder replacement Hyperlipidemia Hyperlipidemia Hyperosmolality and hypernatremia Hypokalemia Hypothyroid Hypothyroid Hypoxia IBS (irritable bowel syndrome) IBS (irritable bowel syndrome) Knee pain, right Lack of coordination Left humeral fracture Left shoulder pain MDD (major depressive disorder) Migraine Need for assistance with personal care Obesity RAULITO (obstructive sleep apnea) RAULITO (obstructive sleep apnea) Other symbolic dysfunctions Personal history of transient ischemic attack (TIA), and cerebral infarction without residual deficits Pneumonitis Reduced mobility Repeated falls Syncope Syncope and collapse TIA (transient ischemic attack) Weakness Surgical history review: Past Surgical History: Procedure Laterality Date ARM SURGERY (HISTORICAL) Right ARM SURGERY (HISTORICAL) N/A CHOLECYSTECTOMY HYSTERECTOMY OTHER SURGICAL HISTORY 05/31/2022 Left femoral endoprosthetic replacement OTHER SURGICAL HISTORY Left 06/01/2022 ORIF left olecranon Current medications review: * No intraprocedure medications in log * Allergies review: Sulfamethoxazole-trimethoprim, Aspirin, Ibuprofen, and Sumatriptan Family history review: Family History Problem Relation Name Age of Onset Emphysema Father Alcohol abuse Mother Social history review: Social History Tobacco Use Smoking status: Never Passive exposure: Never Smokeless tobacco: Never Substance Use Topics Alcohol use: Not Currently Drug use: Never Vascular Access: IV for surgery Review of Systems: Review of Systems Constitutional: Negative for activity change, appetite change, chills and fatigue. HENT: Negative for congestion, dental problem, ear pain and sinus pain. Eyes: Negative for pain, discharge and redness. Respiratory: Negative for apnea, cough, choking and shortness of breath. Cardiovascular: Negative for chest pain, palpitations and leg swelling. Gastrointestinal: Negative for abdominal distention, abdominal pain, anal bleeding and blood in stool. Endocrine: Negative for cold intolerance, heat intolerance and polydipsia. Genitourinary: Negative for difficulty urinating, dysuria and flank pain. Musculoskeletal: Positive for arthralgias and gait problem. Negative for joint swelling. Skin: Negative for color change, pallor and rash. Allergic/Immunologic: Negative for environmental allergies, food allergies and immunocompromised state. Neurological: Negative for seizures, syncope and weakness. Hematological: Negative for adenopathy. Does not bruise/bleed easily. Psychiatric/Behavioral: Negative for agitation, behavioral problems and confusion. Physical Exam Physical Exam Constitutional: Appearance: Normal appearance. She is normal weight. HENT: Head: Normocephalic. Right Ear: There is no impacted cerumen. Left Ear: There is no impacted cerumen. Nose: No congestion or rhinorrhea. Mouth/Throat: Pharynx: No oropharyngeal exudate or posterior oropharyngeal erythema. Eyes: General: No scleral icterus. Right eye: No discharge. Left eye: No discharge. Neck: Vascular: No carotid bruit. Cardiovascular: Rate and Rhythm: Normal rate and regular rhythm. Pulses: Normal pulses. Heart sounds: Normal heart sounds. Pulmonary: Effort: No respiratory distress. Breath sounds: No stridor. No wheezing. Abdominal: General: There is no distension. Palpations: There is no mass. Tenderness: There is no abdominal tenderness. There is no guarding. Musculoskeletal: General: Tenderness present. No swelling or signs of injury. Cervical back: No rigidity or tenderness. Lymphadenopathy: Cervical: No cervical adenopathy. Skin: Capillary Refill: Capillary refill takes less than 2 seconds. Coloration: Skin is not jaundiced. Findings: No bruising, erythema or rash. Neurological: Mental Status: She is alert. Cranial Nerves: No cranial nerve deficit. Motor: No weakness. Gait: Gait normal. Psychiatric: Mood and Affect: Mood normal. Behavior: Behavior normal. Thought Content: Thought content normal. Intake/Output this shift: No intake/output data recorded. Intake/Output last 3 shifts: No intake/output data recorded. Lab Results Review: Pre-op EKG done this morning, reviewed by anesthesia. Hb 11.2. Radiology Results Review: Yes Other Results Review: None Assessment/Plan Problem list: Principal Problem: Primary osteoarthritis of right knee Orders Placed This Encounter Procedures Post Procedure Recovery Standing Status: Standing Number of Occurrences: 1 Diagnosis: Right knee osteoarthritis Plan Right TKA documented in this [facility]05-30-2023 Hospital Discharge instructions* Discharge Instructions* Abiola Connolly PA-C - 01/10/2023 10:33 AM EDT Images from the original note were not included. [facility] OR [address] [place] [id number] Dept: [phone] Dr. Almas Laureano Adult Hip and Knee Reconstruction [phone] Total/Partial Knee Discharge Instruction Physical Therapy Physical Therapy should be arranged for you prior to your discharge. Therapy should begin 1 or 2 days after surgery and continue 3 times a week for a month. Do the exercises at home on the days you do not see a therapist. Dressing Your wound will be covered by a dressing after surgery. It should usually be removed after 10 days.You can shower as long as there is no drainage from the wound. After the dressing is removed it is not recommended to apply any cream, ointment or lotion to the wound unless specifc instructions are given by your surgeon. Caring for your Wound - DERMABOND PRINEO DRESSING DERMABOND PRINEO System is the combination of a mesh and a liquid adhesive that allows the incisionor wound to be held together during the healing process. DERMABOND PRINEO System should remain in place until your healthcare professional has determined that adequate healing has occurred, which is usually anywhere between 7-14 days. In most cases, DERMABOND PRINEO System is easily removed with little or no discomfort. In the event that you notice that DERMABOND PRINEO System is beginning to loosen or may be coming o, contact your healthcare professional. The following information is provided to help you understand how to care for your incision. You should always follow the instructions of your healthcare provider Things to know Bathing or showering If directed by your healthcare professional, you may occasionally and briefly wet your incision or wound that was treated with DERMABOND PRINEO System in the shower or bath. Do not soak or scrub yourincision or wound. Do not swim or soak your incision or wound in water. After showering or bathing,gently blot your incision or wound dry with a soft towel. If a dry protective dressing is being used over DERMABOND PRINEO System, it should be replaced with a fresh, dry protective dressing after showering or bathing as directed by your health care practitioner. Care should also be taken so that any tape that may be part of the dry protective dressing does not come into contact with DERMABOND PRINEO System because when the tape is removed, it may also remove DERMABOND PRINEO System. Wound healing If you experience any redness, swelling, discomfort, warmth or pus, contact your healthcare professional and he or she will determine how your incision or wound is healing and take the necessary steps to address any issues. Exercise Do not engage in strenuous exercise that may cause additional stress on your incision or wound. Follow your healthcare professional s guidance about when you can return to your normal activities. Removing DERMABOND PRINEO System Your healthcare professional will determine when the healing process of your incision or wound has been completed and DERMABOND PRINEO System is ready to be removed, which is usually between 7 to 14 days. You will have an outer bandage that is placed over the prineo mesh. This bandage may come off 7-10 days after surgery. You may shower with this bandage on, but do not bathe or submerge the incision until cleared by provider at initial pos-op visit. After this bandage is removed, the prineo mesh will gradually fall off on its own. If there are parts of the mesh that are peeling off on their own, you ay cut these parts with scissors, but do not peel any mesh off that is not already coming off on its own. This will eventually all fall off with time, or your provider will remove it at your initial post-op visit. You may shower with both the bandage and the prineo mesh, but do not bathe or submerge the incision or rub any lotion, gels or creams over it until cleared by provider at initialpos-op visit. When healing is complete, your healthcare professional will carefully peel off the DERMABOND PRINEOSystem. Prior to removal, do not scratch, rub or pick at the mesh. This may loosen the adhesive and mesh before the skin is healed. In the event that you notice that DERMABOND PRINEO System is beginning to loosen and may be coming off or comes off the skin wound, contact your healthcare professional Ointments or liquids Topical ointments, liquids or any other product (other than dry bandages) should not be applied to the incision while DERMABOND PRINEO System is in place. These may loosen DERMABOND PRINEO System from the skin before it has completely healed. Most of the time, your stitches will be under the skin and will dissolve on their own. If you have cielo or external stitches they can be removed 10 days after surgery as long as there is no drainage. If the wound is draining, the dressing should be changed daily. The wound should be dry and without drainage by about 7 days postoperative. If there is persistent drainage from the wound after this time period, you should call our office immediately. If there is worsening redness around the incision, you should also call the office immediately. These may be signs of a superficial or deep woundinfection and you may have to return to the office for an evaluation by one of our staff. Common concerns after knee replacement surgery include swelling and bruising. These can be quite signifcant in nature and can appear anywhere from the thigh to the toes. These are typically worse at night which can contribute to trouble sleeping comfortably for more than one to two hours at a time. Activity You will be using an assistive device (walker, crutches, or cane). Your physical therapist will help you with this. Most patients are able to get in and out of bed, use the rest room, and go up and down stairs when they go home. We d like you to get up and walk every hour after surgery. For the first 1-2 weeks you will be walking with a walker or two crutches. After that, you can start using a cane. Bathing Your dressing is waterproof. You may take a shower but not a bath. Precautions It is very common to have swelling and bruising in the thigh, lower leg and foot after surgery. Elevating your leg, doing ankle pump exercises, and using ice packs will help. Call us if the swelling does not subside overnight. Call for a temperature over 101. Take the pain medications as needed for pain. Pain pills can cause constipation. Use over the counter stool softeners like Colace to avoid constipation. If Colace is not effective use a gentle over the counter laxative such as Miralx Please refer to your medication sheet for more information regarding any prescriptions you have been given to take after surgery. Follow up office visit The Doctor would like see you in 4 weeks. If the followup appointment is not already made the office will call within 2 weeks. Please avoid any other surgery, procedure or dental procedure until cleared by Dr. Laureano Common Questions About Knee Replacement Question: Why does my knee click? Answer: knee prosthesis is made of hard metal and plastic. [place] [employer] will create a slight separation of the components. When you tighten your muscles or swing your leg, the pieces come in contact and may make a clicking sound. This is normal. It should not cause pain and does not mean that something is loose or wrong. Question: Why does the skin feel funny around my incision? Answer: The nerves in the skin cross the front of the knee in an inside-out direction. When an incision is made down the front of the knee, these tiny nerves are divided and the skin on the outside will feel fuzzy or numb. This sensation will lessen with time and is normal for all patients with knee replacement surgery. Question: Why is my leg discolored? Answer: You may develop some discoloration (like a bruise) in the leg. This discoloration, which may extend to the hip or ankle, will slowly disappear. Question: When can I get my knee wet? Answer: You can take a shower when your wound is dry. If you have a plastic dressing, it is waterproof. You may wash around the incision but do not scrub the incision. Water does not hinder the healing, but a strong soap could irritate the skin. Be sure to gently pat the area dry. Question: What about cocoa butter and vitamin E oil? Answer: Do not use either of these until after your four week postoperative visit. Ask for clearance to use during that visit. Question: A stitch is sticking out. What do I do? Answer: We often suture the skin from underneath to reduce scarring. The knot at the end of the stitch sometimes will protrude from the skin. Redness and a small amount of drainage may appear. Cleanse the skin with peroxide. Please notify your surgeon s of ce. Question: When can I drive my car? Answer: Usually after 4 weeks. A patient s decision to drive sooner is a personal decision related to their mobility and pain control. You cannot drive while you are taking narcotic pain medicine such as [place], Percocet, Hydrocodone, Oxycodone. Question: How long will I have pain? Answer: The surgical pain tends to resolve in the first week or two. You may continue to have some soreness, stiffness and swelling anywhere from six weeks to three months. This should disappear gradually with exercise and increased activity. If you develop pain after exercising with weights or walking without a walker or crutches, you may be overworking the knee. The following should help: usingthe walker or crutches, decreasing the amount of weight used during exercises, and periodically elevating your leg with ice on it. If the pain does not resolve in a day or two, you should contact your surgeon. * Discharge Instr - ROSALIO* Marjorie Carrillo RN - 01/13/2023 6:44 AM EDT Continuity of Care Form Patient Name: Andre Blanca : 1950 Admit date: 01/12/2023 Discharge date: 01/13/2023 Code Status Order: Full Code Advance Directives: Y Admitting Physician: Almas Laureano MD PCP: Kianna Izquierdo Discharging Nurse: Hailey Carrillo RN Discharging Hospital Unit/Room#: B1-163/B1-163 A Discharging Unit Emergency Contact: Extended Emergency Contact Information Primary Emergency Contact: Giana Blanca [place] Relation: Child Past Surgical History: Past Surgical History: Procedure Laterality Date ARM SURGERY (HISTORICAL) Right ARM SURGERY (HISTORICAL) N/A CHOLECYSTECTOMY HYSTERECTOMY OTHER SURGICAL HISTORY 05/31/2022 Left femoral endoprosthetic replacement OTHER SURGICAL HISTORY Left 06/01/2022 ORIF left olecranon TOTAL KNEE ARTHROPLASTY Right 01/12/2023 Immunization History: Immunization History Administered Date(s) Administered Covid-19, Pfizer Albarran Top, Do Not Dilute, (Age 12 Y+), Im, L 12/02/2021 Pfizer SARS-CoV-2 Vaccination 09/09/2020, 06/03/2021 Active Problems: Medical Problems Problem List * (Principal) Primary osteoarthritis of right knee Left rotator cuff tear arthropathy Obesity (BMI 30-39.9) Fall from ground level Head injury Dizziness Concussion with loss of consciousness of 30 minutes or less Accidental fall from bed Syncope and collapse At risk for delirium Debility Polypharmacy Hypothyroidism Osteoarthritis Pain and swelling of elbow, left Bipolar 1 disorder (HCC) Abnormal EKG Near syncope COPD (chronic obstructive pulmonary disease) ([facility]) H/O TIA (transient ischemic attack) and stroke Isolation/Infection: No active isolations No active infections Nurse Assessment: Last Vital Signs: BP 128/62 Pulse 83 Temp 36.6 C (97.8 F) (Temporal) Resp 17 SpO2 94% Last documented pain score (0-10 scale): Last Weight: Wt Readings from Last 1 Encounters: 12/14/22 83.9 kg (185 lb) Mental Status: ROSALIO Patient Mental Status: oriented, alert, coherent, and forgetful IV Access: ROSALIO IV Access: None Nursing Mobility/ADLs: Walking Total assistance Transfer Total assistance Bathing Minimal assistance Dressing Minimal assistance Toileting Minimal assistance Feeding Independent Junction Maker Independent Med Delivery yes Wound Care Documentation and Therapy: Wound/Incision 01/12/23 Incision Knee Anterior;Right (Active) Site Assessment Clean;Dry;Intact;Swelling 01/13/23 0330 Odor None 01/13/23 0015 Drainage Amount None 01/13/23 0330 Treatments Ice applied 01/13/23 033 Primary Dressing Sterile dressing;Transparent film 01/13/23 0330 Dressing Status Clean, dry & intact 01/13/23 0330 Number of days: 1 Elimination: Continence: Bowel: yes Bladder: yes Urinary Catheter: None Colostomy/Ileostomy/Ileal Conduit: None Date of Last BM: Intake/Output Summary (Last 24 hours) at 01/13/2023 0643 Last data filed at 01/12/2023 1306 Gross per 24 hour Intake 500 ml Output 125 ml Net 375 ml I/O last 3 completed shifts: In: 500 [I.V.:500] Out: 125 [Blood:125] Safety Concerns: at risk for falls Impairments/Disabilities: vision Nutrition Therapy: Current Nutrition Therapy: Oral diet: general Routes of Feeding: oral Liquids: no restrictions Daily Fluid Restriction: no Last Modified Barium Swallow with Video (Video Swallowing Test): not done Treatments at the Time of Hospital Discharge: Respiratory Treatments: none Oxygen Therapy: is on oxygen at 2 L/min per nasal cannula. Ventilator: No ventilator support Rehab Therapies: physical therapy and occupational therapy Weight Bearing Status/Restrictions: no restriction Other Medical Equipment (for information only, NOT a DME order): bedside commode Other Treatments: none Patient's personal belongings (please select all that are sent with patient): glasses, dentures upper, and cell phone RN SIGNATURE: MANAGEMENT/SOCIAL WORK SECTION Inpatient Status Date: Readmission Risk Assessment Score: @READMISSIONRISKDETAILS@ Discharging to Facility/ Agency Name: [facility] Address: [address], [place] [address] Hours: Open 24 hours Dialysis Facility (if applicable) Name: Address: Dialysis Schedule: Phone: Fax: Global Account Director/Bean Snapper signature: ICIAN SECTION Prognosis: good Condition at Discharge: stable Rehab Potential (if transferring to Rehab): good Recommended Labs or Other Treatments After Discharge: none Physician Certification: I certify the above information and transfer of Andre Blanca is necessary for the continuing treatment of the diagnosis listed and that she requires longterm facility for less than 30 days. Update Admission H&P: No change in H&P PHYSICIAN SIGNATURE: documented in this [facility]01-03-2023 Telephone encounter Note* Telephone Encounter - Kwesi Sharpe MA - 08/16/2022 3:46 PM EST Contact [id number] Miscellaneous Notes* Telephone Encounter - Kwesi Sharpe MA - 08/16/2022 3:46 PM EST Contact for [facility]: * Telephone Encounter - Agatha Stone MA - 07/14/2022 10:05 AM EST OK per Dr. Jacobsen. Keep t * Telephone Encounter - Agatha Stone MA - 07/12/2022 3:20 PM EST Called and spoke to Giana. He states he will be out of town that week. He is asking if a family friend Terri who is also director of the nursing facility could come with her? He is agreeable to Terri helping to make medical decisions for his mother. * Telephone Encounter - Jigna Lechuga - 07/12/2022 10:59 AM EST Please call patient's son and POA Giana back when you get a moment. He is wondering why he has to be present for upcoming appointment. [phone] * Telephone Encounter - Agatha Stone MA - 07/12/2022 10:03 AM EST Spoke to Puma. Made appt for 07/19 Stressed the importance of needing a family member present at this appointment. Staff member is notsufficient. * Telephone Encounter - Agatha Stone MA - 07/12/2022 9:48 AM EST She needs an appointment with [facility]. A family member has to be present at this appointment * Telephone Encounter - Chioma Flanagan MA - 07/12/2022 9:34 AM EST Puma at the [facility] called in requesting an appointment. I offered her an appointment today or next Monday with Dr. Jacobsen. She was not sure when she could come today as another resident had an appointment today as well. She stated if so, it would need to be later this afternoon. Monica advised by Agatha that she wanted to speak with them. I let Puma know that someone will call back. Please call her at [phone]. Appointment not scheduled as I was unsure where to add her on today documented in this encounterSSouthern [facility] [id number] Telephone encounter Note* Telephone Encounter - Agatha Stone MA - 07/14/2022 10:05 AM EST OK per Dr. Jacobsen. Keep 07/19/ appt [place] [id number] Telephone encounter Note* Telephone Encounter - Agatha Stone MA - 07/12/2022 3:20 PM EST Called and spoke to Giana. He states he will be out of town that week. He is asking if a family friend Terri who is also director of the nursing facility could come with her? He is agreeable to Terri helping to make medical decisions for his mother. [place] [id number] Telephone encounter Note* Telephone Encounter - Jigna Lechuga - 07/12/2022 10:59 AM EST Please call patient's son and POA Giana back when you get a moment. He is wondering why he has to be present for upcoming appointment. [phone] [place] [id number] Telephone encounter Note* Telephone Encounter - Agatha Stone MA - 07/12/2022 10:03 AM EST Spoke to Puma. Made appt for 07/19 Stressed the importance of needing a family member present at this appointment. Staff member is notsufficient. [place] [id number] Telephone encounter Note* Telephone Encounter - Agatha Stone MA - 07/12/2022 9:48 AM EST She needs an appointment with [facility]. A family member has to be present at this appointment [id number] Telephone encounter Note* Telephone Encounter - Chioma Flanagan MA - 07/12/2022 9:34 AM EST Puma at the [facility] called in requesting an appointment. I offered her an appointment today or next Monday with Dr. Jacobsen. She was not sure when she could come today as another resident had an appointment today as well. She stated if so, it would need to be later this afternoon. Iwdomi advised by Agatha that she wanted to speak with them. I let Puma know that someone will call back. Please call her at [phone]. Appointment not scheduled as I was unsure where to add her on today [facility] [id number] History of Present illness Narrative* Gerardo Last RN - 06/05/2022 6:31 PM EDT Pt discharged to facility via ambulance. ROSALIO completed, IV removed. * FREDERICK Meeks NP - 06/05/2022 6:03 AM EDT Images from the original note were not included. Daily Trauma Progress Note JORGE ALBERTO 06/05/2022 6:03 AM Admit Date: 05/30/2022 Post Trauma Day 6 Fall SH HISTORY OF TRAUMATIC EVENT: 71 y.o. female status post unwitnessed fall at her [facility]. The incident happened at an unknown time. When the event happened the patient states she blacked out and woke up onthe floor of her room. She started to scream and cry when she awoke and states another resident called for help. INJURIES: Left femoral neck fx Left olecranon fx PROCEDURES: - left femoral endoprosthetic replacement 05/31 - ORIFof left olecranon fracture 06/01 INCIDENTAL FINDINGS: None CHIEF COMPLAINT: Left arm pain PREVIOUS 24 HOUR EVENTS: - NAEON Consults: IP CONSULT TO ORTHOPEDIC SURGERY IP CONSULT TO GERIATRICS IP CONSULT TO PALLIATIVE CARE MEDICATIONS: Current Facility-Administered Medications Medication Dose Route Frequency Provider Last Rate Last Admin vitamin D (ERGOCALCIFEROL) capsule 50,000 Units 50,000 Units Oral Weekly Shweta Carson APRN - GENERAL [employer]OR [employer] OPERATOR 50,000 Units at 06/03/22 1053 enoxaparin Sodium (LOVENOX) injection 30 mg 30 mg SubCUTAneous BID Earl Richardson PA-C 30 mg at 06/04/222119 [Held by provider] methocarbamol (ROBAXIN) tablet 500 mg 500 mg Oral TID Earl Richardson PA-C 500 mgat 06/02/22 1338 carBAMazepine (TEGRETOL) tablet 200 mg 200 mg Oral TID Earl Richardson PA-C 200 mg at 06/04/222118 venlafaxine (EFFEXOR XR) extended release capsule 37.5 mg 37.5 mg Oral Daily Earl Richardson PA-C 37.5 mg at 06/04/22 1037 albuterol (PROVENTIL) nebulizer solution 1.25 mg 1.25 mg Nebulization Q6H PRN ENEIDA LyleC 1.25 mg at 06/02/222200 naloxone (NARCAN) injection 0.4 mg 0.4 mg IntraVENous PRN Earl Richardson PA-C oxyCODONE (ROXICODONE) immediate release tablet 2.5 mg 2.5 mg Oral Q4H PRN Earl Richardson PA-C Or oxyCODONE (ROXICODONE) immediate release tablet 5 mg 5 mg Oral Q4H PRN Earl Richardson PA-C 5 mg at 06/04/22 1008 sodium chloride flush 0.9 % injection 5-40 mL 5-40 mL IntraVENous 2 times per day Earl Richardson PA-C 10 mL at 06/04/222120 sodium chloride flush 0.9 % injection 5-40 mL 5-40 mL IntraVENous PRN CARLOS Lyle-Missy 0.9 % sodium chloride infusion IntraVENous PRN Earl Richardson PA-C ondansetron (ZOFRAN-ODT) disintegrating tablet 4 mg 4 mg Oral Q8H PRN Earl Richardson PA-C Or ondansetron (ZOFRAN) injection 4 mg 4 mg IntraVENous Q6H PRN Earl Richardson, PA-C 4 mg at 06/03/221811 polyethylene glycol (GLYCOLAX) packet 17 g 17 g Oral Daily Earl Richardson, PA-C 17 g at 06/03/22 0754 acetaminophen (TYLENOL) tablet 1,000 mg 1,000 mg Oral 3 times per day Earl Richardson, PA-C 1,000 mg at 06/05/22 0519 senna (SENOKOT) tablet 8.6 mg 1 tablet Oral Daily PRN Earl Richardson PA-C bisacodyl (DULCOLAX) EC tablet 5 mg 5 mg Oral Daily Earl Richardson, PA-C 5 mg at 06/04/222119 busPIRone (BUSPAR) tablet 10 mg 10 mg Oral TID Earl Richardson, PA-C 10 mg at 06/04/222118 fludrocortisone (FLORINEF) tablet 0.1 mg 0.1 mg Oral Daily Earl Richardson, PA-C 0.1 mg at 06/03/22757 levothyroxine (SYNTHROID) tablet 150 mcg 150 mcg Oral Daily Earl Richardson, PA-C 150 mcg at melatonin tablet 5 mg 5 mg Oral Daily Earl Richardson, PA-C 5 mg at 06/04/222118 midodrine (PROAMATINE) tablet 5 mg 5 mg Oral TID Earl Richardson, PA-C 5 mg at 06/04/222121 pantoprazole (PROTONIX) tablet 40 mg 40 mg Oral BID Earl Richardson, PA-C 40 mg at 06/04/222118 pravastatin (PRAVACHOL) tablet 40 mg 40 mg Oral Daily Earl Richardson, PA-C 40 mg at 06/04/2259 pregabalin (LYRICA) capsule 150 mg 150 mg Oral BID Earl Richardson, PA-C 150 mg at 06/04/222119 risperiDONE (RISPERDAL) tablet 0.5 mg 0.5 mg Oral BID Earl Richardson, PA-C 0.5 mg at 06/04/222120 traZODone (DESYREL) tablet 50 mg 50 mg Oral Nightly Earl Richardson PA-C 50 mg at 06/04/222118 ARE THERE PERTINENT UPDATES TO PAST,FAMILY, OR SOCIAL HISTORY?: No Subjective: Patient feeling well. States her pain is under control. Anxious about discharge Review of Systems Constitutional: Positive for activity change. HENT: Negative. Respiratory: Negative. Cardiovascular: Negative. Gastrointestinal: Negative. Genitourinary: Negative. Musculoskeletal: Positive for arthralgias, gait problem, joint swelling and myalgias. Skin: Negative. Neurological: Positive for syncope. Negative for dizziness. Psychiatric/Behavioral: Negative. All other systems reviewed and are negative. PHQ In the last 2 weeks have you had: Little interest or pleasure in doing things No Been feeling down, depressed, or hopeless No If greater then 0, place CLP consult Date PHQ completed: 05/31/2022 Objective: Patient Vitals for the past 24 hrs: BP Temp Temp src Pulse Resp SpO2 06/05/22 0429 114/82 98 F (36.7 C) Temporal 84 16 92 % 06/04/22 1811 (!) 122/58 97.2 F (36.2 C) Temporal 80 17 97 % 06/04/22 0926 133/69 -- Temporal 92 -- 91 % 06/04/22 0924 119/61 -- Temporal 84 -- 96 % Last BM: 06/04 Diet: regular PHYSICAL: Physical Exam Vitals and nursing note reviewed. Constitutional: General: She is not in acute distress. Appearance: Normal appearance. She is not ill-appearing. HENT: Head: Normocephalic. Nose: Nose normal. Mouth/Throat: Mouth: Mucous membranes are moist. Eyes: Extraocular Movements: Extraocular movements intact. Pupils: Pupils are equal, round, and reactive to light. Cardiovascular: Rate and Rhythm: Normal rate. Pulses: Normal pulses. Pulmonary: Effort: Pulmonary effort is normal. Breath sounds: Normal breath sounds. Abdominal: General: Abdomen is flat. There is no distension. Palpations: Abdomen is soft. Musculoskeletal: General: Swelling, tenderness and signs of injury present. Cervical back: Normal range of motion and neck supple. No rigidity or tenderness. Comments: L hip TTP. Incision c/d/I Foot: Left fifth digit with some swelling and ecchymosis. Minimal TTP. DP intact bilaterally. Left arm splinted, MSPs intact Skin: General: Skin is warm and dry. Capillary Refill: Capillary refill takes less than 2 seconds. Findings: No bruising. Neurological: General: No focal deficit present. Mental Status: She is alert and oriented to person, place, and time. Psychiatric: Mood and Affect: Mood normal. Sutures or cielo? No O2: NC @ 3L mostly for night time use / / / Data Review Data CBC with Differential: Lab Results Component Value Date/Time WBC 10.3 06/03/2022 12:57 PM RBC 2.95 06/03/2022 12:57 PM HGB 8.3 06/03/2022 12:57 PM HCT 25.4 06/03/2022 12:57 PM PLT 249 06/03/2022 12:57 PM CMP: Lab Results Component Value Date/Time NA 138 06/03/2022 12:57 PM K 3.5 06/03/2022 12:57 PM CL 101 06/03/2022 12:57 PM CO2 35 06/03/2022 12:57 PM BUN 14 06/03/2022 12:57 PM CREATININE 0.66 06/03/2022 12:57 PM GLUCOSE 145 06/03/2022 12:57 PM CALCIUM 8.2 06/03/2022 12:57 PM BMP: Hepatic Function Panel:Ionized Calcium: No results found for: IONCA Magnesium: No results found for: MG Phosphorus: No results found for: PHOS PT/INR: Lab Results Component Value Date/Time PROTIME 10.7 05/30/2022 09:38 AM INR 1.0 05/30/2022 09:38 AM PTT: Lab Results Component Value Date/Time APTT 27.1 05/30/2022 09:38 AM [APTT Last 3 Troponin: Lab Results Component Value Date/Time TROPONINI <0.012 05/30/2022 09:38 AM Urine Culture: No components found for: CURINE Blood Culture: No components found for: CBLOOD, CFUNGUSBL Blood Culture from Central Line: No components found for: CBLOODLN Stool Culture: No components found for: CSTOOL Sputum Culture: No components found for: CSPUTUM Sputum Culture for AFB: No components found for: CAFBSM Wound Culture: NA Radiology: XR ELBOW LEFT (MIN 3 VIEWS) Result Date: 05/30/2022 Patient Name: ANDRE BLANCA: [id number] Diagnostic Radiology ACCESSION EXAMDATE/TIME PROCEDURE ORDERING PROVIDER [id number] 05/30/2022 10:17 EDT CR Elbow 3+ Views Left [id number] CAMARA CPT code 74287 Reason For Exam (CR Elbow 3+ Views Left) left elbow pain s/p fall Report LEFT ELBOW CLINICAL INDICATION: Pain after trauma left elbow pain s/p fall AP, lateral, andoblique plain film views of the left elbow were obtained. COMPARISON: None FINDINGS: There is an acute, mildly comminuted olecranon fracture of the humerus with mild proximal retraction of the major olecranon fracture fragment. Radiocapitellar alignment is maintained. Soft tissue swelling is present overlying the fracture. No fracture of the distal humerus or proximal radius is identified. IMPRESSION: Mildly displaced and mildly comminuted acute olecranon fracture. Report Dictated on --- Final --- Dictated: 05/30/2022 10:22 am Dictating Physician: MD IGLESIAS THOMAS Signed Date and Time: 05/30/2022 10:24 am Signed by: MD IGLESIAS THOMAS Transcribed Date and Time: 05/30/2022 10:22 XR FEMUR LEFT (MIN 2 VIEWS) Result Date: 05/30/2022 Patient Name: ANDRE BLANCA Diagnostic Radiology ACCESSION EXAMDATE/TIME PROCEDURE ORDERING PROVIDER [id number] 05/30/2022 10:17 EDT CR Femur 2+ Views Left n [id number] -MARGARET CUEVAS CPT code 92443 Reason For Exam (CR Femur 2+ Views Left n) left leg pain s/p fall Report LEFT FEMUR PELVIS CLINICAL INDICATION: Pain left leg pain s/p fall AP and lateral plain film views of the left femur were obtained. AP radiograph the pelvis. COMPARISON: None FINDINGS: There is an acute transcervical fracture of the left femoral neck with mild anterior angulation of the fracture apex. No other acute fractures of the left femur or pelvis are identified. IMPRESSION: Acuteleft femoral neck fracture. Report Dictated on --- Final --- Dictated: 05/30/2022 10:24 am Dictating Physician: MD IGLESIAS THOMAS Signed Date and Time: 05/30/2022 10:28 am Signed by: MD IGLESIAS THOMAS Transcribed Date and Time: 05/30/2022 10:24 CT head without contrast Result Date: 05/30/2022 Patient Name: ANDRE BLANCA Computed Tomography ACCESSION EXAM DATE/TIME PROCEDURE ORDERING PROVIDER [id number] 05/30/2022 16:[address] Head or Brain w/o [id number], RADHA Contrast CPT code 18068 Reason For Exam (CT Head or Brain w/o Contrast) fall on plavix Report CT BRAIN WITHOUT CONTRAST CLINICAL INDICATION: fall on plavix TECHNIQUE: CT scan of the brain without IV contrast. Multiplanar reformations. COMPARISON: Earlier on same date at 0945 hours. FINDINGS: No apparent mass or mass effect, hemorrhage, midline shift or hydrocephalus. No evidence of acute cortical infarct. No abnormal, extra-axial fluid or air collection. Patchy low density in the periventricular and subcortical white matter is nonspecific, but may relate to chronic small vessel ischemic change. Probable old lacunar infarct changes again noted in and left caudate nucleus head. Mild, diffuse volume loss. Osseous calvarium grossly intact. IMPRESSION: 1. No acute intracranial findings. 2. Probable chronic ischemic and atrophic changes. Report Dictated on --- Final --- Dictated: 05/30/2022 5:06 pm Dictating Physician: MD OCHOA WENDELL SignedDate and Time: 05/30/2022 5:10 pm Signed by: MD OCHOA WENDELL Transcribed Date and Time: 05/30/2022 5:06 CT HEAD WO CONTRAST Result Date: 05/30/2022 Patient Name: ANDRE BLANCA Computed Tomography ACCESSION EXAM DATE/TIME PROCEDURE ORDERING PROVIDER [id number] 05/30/2022 09:[address] Head or Brain w/o [id number] CAYLA Contrast CPT code 65415 Reason For Exam (CT Head or Brain w/o Contrast) trauma Report CT HEAD WITHOUT CONTRAST: INDICATION: Cough COMPARISON: None. Unenhanced CT images of the head from skull base to vertex were obtained. The images are reviewed in the axial, sagittal and coronal planes. The ventricles and sulci are enlarged, consistent with atrophy. Focal and confluent areas oflow-attenuation are noted within the subcortical and periventricular white matter suggesting chronic ischemia. There is no evidence of hemorrhage, mass or large acute infarct. A remote lacunar infarct is seen on the left near the caudate nucleus head. Additional focal areas of low-attenuation are seen involving the dionisio. There is no mass or significant shift of the midline structures. There are no extraaxial or posterior fossa masses or fluid collections. The hypothalamic and parasellar regionsare unremarkable. There is mild mucosal thickening of the right maxillary sinus. IMPRESSION: No acute intracranial process. Multifocal remote infarcts.. Report Dictated on --- Final --- Dictated: 05/30/2022 10:49 am Dictating Physician: DO MCGUIRE ALFRED Signed Dateand Time: 05/30/2022 10:56 am Signed by: DO MCGUIRE ALFRED Transcribed Date and Time: 05/30/2022 10:49 CT CERVICAL SPINE WO CONTRAST Result Date: 05/30/2022 Patient Name: ANDRE BLANCA Computed Tomography ACCESSION EXAM DATE/TIME PROCEDURE ORDERING PROVIDER [id number] 05/30/2022 09:[address] Spine Cervical w/o [id number] -CAYLA MADRIGAL Contrast CPT code 19959 Reason For Exam (CT Spine Cervical w/o Contrast) trauma Report CT CERVICAL SPINE WITHOUT CONTRAST: INDICATION: Neck pain after trauma COMPARISON: None. Axial scans of the cervical spine performed from the skull base to the thoracic inlet, with sagittal andcoronal reconstructions. On the sagittal reconstruction images, the anatomic alignment of the vertebral bodies is normal. There is no evidence of fracture or subluxation in the cervical spine. Disc sp jerardo narrowing and marginal spurring is noted at C6-C7 with mild bilateral foraminal encroachment. The prevertebral soft-tissues are normal. The craniocervical junction and C1-2 junction appear normal. The odontoid is intact. IMPRESSION: Arthritic changes. No acute process. Report Dictated on Worksta tion: [id number] --- Final --- Dictated: 05/30/2022 10:58 am Dictating Physician: DO MCGUIRE ALFRED Signed Date and Time: 05/30/2022 11:00 am Signed by: DO MCGUIRE ALFRED Transcribed Date and Time: 05/30/2022 10:58 XR Tibia Fibula Bilateral Result Date: 05/30/2022 Patient Name: ANDRE BLANCA Diagnostic Radiology ACCESSION EXAMDATE/TIME PROCEDURE ORDERING PROVIDER [id number] 05/30/2022 19:27 EDT CR Tibia/Fibula 2 Views MD FARAZ, ERLINDA Bilateral CPT code 21931 Reason For Exam (CR Tibia/Fibula 2 Views Bilateral) Bilateral leg pain Report EXAMINATION: Bilateral tibia and fibula CLINICAL INDICATION: Bilateral leg pain TECHNIQUE: AP and lateral radiographs of the bilateral tibia/fibula COMPARISON: None FINDINGS: No fracture or dislocation. Degenerative changes are present in the bilateral knees, greater on the right.No soft tissue swelling. Report Dictated on --- Final --- Dictated: 05/30/2022 7:12 pm Dictating Physician: MD HICKS NICHOLAS Signed Date and Time: 05/30/2022 7:15 pm Signed by: MD HICKS NICHOLAS Transcribed Date and Time: 05/30/2022 7:12 XR CHEST PORTABLE Result Date: 05/30/2022 Patient Name: ANDRE BLANCA Diagnostic Radiology ACCESSION EXAMDATE/TIME PROCEDURE ORDERING PROVIDER [id number] 05/30/2022 10:36 EDT CR Chest Portable LALIT RECIO CPT code 92921 Reason For Exam (CR Chest Portable) fall, left shoulder pain Report APCHEST X- RAY CLINICAL INDICATION: fall, left shoulder pain TECHNIQUE: AP portable x-ray of the chest. COMPARISON: None FINDINGS: Heart/Mediastinum: Prominence of the superior mediastinum is most likely from rightward patient rotation. Heart size is within normal limits. Lungs: Low lung volumes. No definite airspace consolidation or pleural effusion. Bones: No displaced fractures. Degenerative endplate spurring is present throughout the mid and lower aspects of the thoracic spine. IMPRESSION: No evidence of an acute cardiopulmonary abnormality. Report Dictated on --- Final --- Dictated: 05/30/2022 10:29 am Dictating Physician: MD IGLESIAS THOMAS Signed Date and Time: 05/30/2022 10:31 am Signed by: MD IGLESIAS THOMAS Transcribed Date and Time: 05/30/2022 10:29 XR Shoulder Left 2 VW Result Date: 05/30/2022 [id number]iology ACCESSION EXAMDATE/TIME PROCEDURE ORDERING PROVIDER [id number] 05/30/2022 10:17 EDT CR Shoulder 2+ Views [id number] -MARGARET CUEVAS Left CPT code 83790 Reason For Exam (CR Shoulder 2+ Views Left) fall, left shoulder pain Report EXAMINATION: CR Shoulder 2+ Views Left CLINICAL HISTORY: fall, left shoulder pain COMPARISON: None TECHNIQUE: Grashey, axillary, and transscapular views of the left shoulder FINDINGS: The patient is status post 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 There is mild heterotopic ossification adjacent to the glenoid prosthesis. The acromioclavicular joint is intact. No left rib fractures are identified. No osseous lesions are seen. IMPRESSION: 1. No periprosthetic fracture of the left shoulder. Report Dictated on --- Final --- Dictated: 05/30/2022 10:28 am Dictating Physician: MD IGLESIAS THOMAS Signed Date and Time: 05/30/2022 10:29 am Signed by: MD IGLESIAS THOMAS Transcribed Date and Time: 05/30/2022 10:28 XR PELVIS (1-2 VW) Result Date: 05/30/2022 Patient Name: ANDRE BLANCA Diagnostic Radiology ACCESSION EXAMDATE/TIME PROCEDURE ORDERING PROVIDER [id number] 05/30/2022 10:36 EDT CR Pelvis 1 or 2 Views [id number] -LALIT PICHARDO CPT code 29134 Reason For Exam (CR Pelvis 1 or 2 Views) fall, left hip pain Report LEFT FEMUR PELVIS CLINICAL INDICATION: Pain left leg pain s/p fall AP and lateral plain film views of the left femur were obtained. AP radiograph the pelvis. COMPARISON: None FINDINGS: There is an acute transcervical fracture of the left femoral neck with mild anterior angulation of the fracture apex. No other acute fractures of the left femur or pelvis are identified. IMPRESSION: Acute left fem oral neck fracture. Report Dictated on --- Final --- Dictated: 05/30/2022 10:24 am Dictating Physician: MD IGLESIAS THOMAS Signed Date and Time: 05/30/2022 10:28 am Signed by: MD IGLESIAS THOMAS Transcribed Date and Time: 05/30/2022 10:24 Patient Active Problem List Diagnosis Fall at home, initial encounter Closed displaced fracture of left femoral neck (HCC) Closed fracture of left olecranon process Syncope Acute traumatic pain At risk for delirium Polypharmacy Palliative care encounter Goals of care, counseling/discussion Acute encephalopathy Vitamin D deficiency ASSESSMENT: 71y F S/P fall with Left femoral neck fx and left olecranon fx PLAN: Neuro/Spine: - Pain: Scheduled tylenol, robaxin held, prn oxy, dilaudid dc. - Hx fibromyalgia: home Lyrica - Hx bipolar/depression - Home meds: buspirone, risperidone, Effexor, trazodone, carbamazepine - Melatonin nightly - Palliative/Geriatrics consult - CT head X 2 negative - Delirium protocol HEENT: - No concerns Cardiovascular: - Hx of syncope/orthostasis - Home meds: florinef, midodrine - Orthostatic vitals pending - ECHO 01/04: EF 65% - Hx HLD: home Pravachol Pulmonary: - IS, cough and deep breathe - O2 NC @ 3L night time use FEN/GI: - Regular diet - Bowel regimen - Nausea: prn zofran - Hx GERD: home protonix : - CrCl: 75 Heme: - Hgb: 9.6, monitor ID: - No concerns Endo: - Home synthroid Lines/Devices: - PIV - [facility] removed 06/03 Prophylaxis: DVT: None DVT: negative Has DVT PPX been started? Lovenox If no, why? GI: protonix Pressure Ulcer: None, turn q 2 hours Musculoskeletal: - Left olecranon fx - left olecranon fx ORIF 06/01 - Left femoral neck fx - left femoral endoprosthetic replacement 05/31 - Left foot 5th digit fracture; post op shoe WB Status: RUE:AT LUE: NWB RLE: AT LLE: WBAT Is the patient in restraints?: no Medications Reconciled- Yes [x] NO [], why Disposition: Continue H6 care, dispo planning, medically ready Associated attestation - Cayla Madrigal MD - 06/05/2022 2:49 PM EDT ATTENDING ADDENDUM Active Diagnoses/Problems this Admission: Hospital Problems Last Modified POA Fall at home, initial encounter 05/30/2022 Yes Closed displaced fracture of left femoral neck (HCC) 05/30/2022 Yes Closed fracture of left olecranon process 05/30/2022 Yes Syncope 05/30/2022 Yes Acute traumatic pain 05/30/2022 Yes At risk for delirium 05/31/2022 Yes Polypharmacy 05/31/2022 Yes Palliative care encounter 05/31/2022 Yes Goals of care, counseling/discussion 05/31/2022 Yes Acute encephalopathy 06/01/2022 Yes Vitamin D deficiency 06/02/2022 Yes Hypoxia 06/05/2022 Yes I personally supervised the MANAGER PROJECT/ANALISA in the evaluation and development of a treatment plan for this patient on the same day of service as above. I personally discussed the review of systems and interviewed the patient along with performing a physical examination. I reviewed the recent events, imaging, labs, vital signs. In addition, I discussed the patient's condition and treatment options with him/her when possible. I have also reviewed and agree with the past medical, family, and social history unless otherwise noted. All of the patient's questions were answered and family updated when appropriate and possible. A complete review of systems was obtained and is negative except as stated in HPI and/or SubjectiveSection. POD#5 s/p ORIF L femur, POD#4 s/p ORIF L olecranon. Doing well. Anticipate discharge back to [facility] today. Greater than 51% of the >= 25 minute total care time throughout the day (including chart review,care coordination, and [id number] encounter) was spent discussing/counseling the patient/family regarding the care plan for Andre Blanca. I examined the patient independently and reviewed relevant data myself and may have done so in the context of team rounds. A full chart review was performed. Cayla Madrigal MD Division of Trauma Department of Surgery [facility] Pager: [phone] * Rand Olivarez, PT - 06/04/2022 12:33 PM EDT Physical Therapy Facility/Department: [facility] TELEMET[facility] Physical Therapy Initial Assessment Name: Andre Blanca : 1950 Date of Service: 06/04/2022 Discharge Recommendations: Subacute/Custodial Facility PT Equipment Recommendations Equipment Needed: (TBD) Patient Diagnosis(es): The primary encounter diagnosis was Closed displaced fracture of left femoral neck (HCC). Diagnoses of Syncope and collapse, Acute pain of left shoulder, and Left hip pain werealso pertinent to this visit. Past Medical History: has a past medical history of Bipolar 1 disorder (HCC), Cerebral artery occlusion, COPD (chronic obstructive pulmonary disease) (HCC), Depression, DVT (deep venous thrombosis) (HCC), Fibromyalgia, Hyperlipidemia, Hypothyroid, IBS (irritable bowel syndrome), MDD (major depressive disorder), RAULITO (obstructive sleep apnea), Syncope, and TIA (transient ischemic attack). Past Surgical History: has a past surgical history that includes Arm Surgery (N/A); Cholecystectomy; Hysterectomy; other surgical history (05/31/2022); and other surgical history (Left, 06/01/2022). Assessment Body Structures, Functions, Activity Limitations Requiring Skilled Therapeutic Intervention: Decreased functional mobility ;Increased pain;Decreased balance;Decreased strength;Decreased safe awareness;Decreased cognition Assessment: 71 y.o. female admitted to [facility] for fall, closed fracture of femur and olecranon, s/p L femoral endoprosthetic replacement on 05/31 and ORIF L olecranon fx 06/01. She was Mod A for bed mobility, Max A for transfers, and Max A for ambulation. Cues for most sequencing. Pt is below functional baseline. Will rec SNF at discharge for pt safety. Therapy Prognosis: Fair Decision Making: Medium Complexity Requires PT Follow-Up: Yes Activity Tolerance Activity Tolerance: Patient limited by fatigue;Patient limited by pain Activity Tolerance Comments: weakness Plan Physcial Therapy Plan General Plan: 5-7 times per week Therapy Duration: 2 Weeks Current Treatment Recommendations: Strengthening, Balance training, Gait training, Functional mobility training, Stair training, Transfer training, Patient/Caregiver education & training, Safety education & training, Home exercise program, Therapeutic activities, Endurance training, Equipment evaluation, education, & procurement Safety Devices Type of Devices: All fall risk precautions in place, Call light within reach, Gait belt, Patient atrisk for falls, Left in chair, Nurse notified Restraints Restraints Initially in Place: No Restrictions Restrictions/Precautions Restrictions/Precautions: Fall Risk, Bed Alarm, Weight Bearing Required Braces or Orthoses?: Yes Lower Extremity Weight Bearing Restrictions Left Lower Extremity Weight Bearing: Weight Bearing As Tolerated Upper Extremity Weight Bearing Restrictions Left Upper Extremity Weight Bearing: Non Weight Bearing Required Braces or Orthoses Left Lower Extremity Brace: (post-op shoe for comfort) Position Activity Restriction Hip Precautions: Posterior hip precautions Other position/activity restrictions: OK finger ROM Subjective General Chart Reviewed: Yes Patient assessed for rehabilitation services?: Yes Response To Previous Treatment: Not applicable Family / Caregiver Present: No Diagnosis: fall, closed fracture of femur and olecranon, s/p L femoral endoprosthetic replacement on 05/31 and ORIF L olecranon fx 06/01 Follows Commands: Within Functional Limits Subjective Subjective: pt supine in bed; pleasant and agreeable to PT session. Stated she is still in pain butit is being managed Social/Functional History Social/Functional History Lives With: Alone Type of Home: Facility Home Layout: One level Bathroom Shower/Tub: Walk-in shower Bathroom Toilet: Handicap height Home Equipment: Rollator Has the patient had two or more falls in the past year or any fall with injury in the past year?: Yes ADL Assistance: Independent Homemaking Assistance: Needs assistance Homemaking Responsibilities: No Ambulation Assistance: Independent Transfer Assistance: Independent Active Entry Level Finance: No Additional Comments: pt questionable historian Vision/Hearing Vision Vision: Within Functional Limits Hearing Hearing: Within functional limits Cognition Orientation Overall Orientation Status: Within Functional Limits Orientation Level: Oriented to person;Oriented to place;Oriented to time Cognition Overall Cognitive Status: WFL Safety Judgement: Decreased awareness of need for assistance;Decreased awareness of need for safety Initiation: Requires cues for some Sequencing: Requires cues for some Objective AROM RLE (degrees) RLE AROM: WFL AROM LLE (degrees) LLE AROM : WFL LLE General AROM: post hip precautions maintainted Strength RLE Comment: 4/5 with mobility Strength LLE Comment: 4/5 with mobility Bed mobility Supine to Sit: Moderate assistance Scooting: Moderate assistance Bed Mobility Comments: BLE and trunk assist, HOB elevated. dizziness sitting EOB, BP measured WFL. Transfers Sit to Stand: Maximum Assistance Stand to Sit: Maximum Assistance Comment: attempted ortho BP measurement, pt was unable to stand for required length of time. EOB x3. Max A with cues for hand placement and NWB LUE Ambulation Surface: Level tile Device: Hand-Held Assist (PT in front of pt) Assistance: Maximum assistance Gait Deviations: Slow Eugenia;Decreased step length;Decreased step height;Increased LUIS Distance: 3 steps bed > chair Comments: retrograde lean, minimal correction with cues. Minimal to no BLE advancement, LLE more difficult than RLE. More Ambulation?: No Stairs/Curb Stairs?: No Balance Posture: Good Sitting - Static: Good Sitting - Dynamic: Good Standing - Static: -;Fair Standing - Dynamic: Fair;- [facility] Score [facility] Inpatient Mobility Raw Score : 8 (06/04/221232) [facility] Inpatient T-Scale Score : 28.52 (06/04/221232) Mobility Inpatient CMS 0-100% Score: 86.62 (06/04/221232) Mobility Inpatient [facility] G-Code Modifier : CM (06/04/221232) Goals Short Term Goals Time Frame for Short Term Goals: 2 wks Short Term Goal 1: indep with bed mobility Short Term Goal 2: CGA transfers Short Term Goal 3: Min A amb 100' with least restrictive device Short Term Goal 4: standing tolerance >3 min with fair+/good balance Patient Goals Patient Goals : to go home Education Patient Education Education Given To: Patient Education Provided: Role of Therapy;Plan of Care;Equipment;Precautions;Fall Prevention Strategies Education Method: Verbal Barriers to Learning: None Education Outcome: Verbalized understanding Therapy Time Individual Concurrent Group Co-treatment Time In 09 Time Out 0933 Minutes 23 Timed Code Treatment Minutes: (Randall sandoval, 1 FA) This therapist was wearing an appropriate mask, goggles, and gloves for entire patient encounter. Rand Olivarez PT * Radha Moon APRN - EDUCATION ADVISER - 06/04/2022 6:27 AM EDT Images from the original note were not included. Daily Trauma Progress Note JORGE ALBERTO 06/04/2022 6:27 AM Admit Date: 05/30/2022 Post Trauma Day 5 Fall SH HISTORY OF TRAUMATIC EVENT: 71 y.o. female status post unwitnessed fall at her [facility]. The incident happened at an unknown time. When the event happened the patient states she blacked out and woke up onthe floor of her room. She started to scream and cry when she awoke and states another resident called for help. P INJURIES: Left femoral neck fx Left olecranon fx PROCEDURES: - left femoral endoprosthetic replacement 05/31 - ORIFof left olecranon fracture 06/01 INCIDENTAL FINDINGS: None CHIEF COMPLAINT: Left arm pain PREVIOUS 24 HOUR EVENTS: - NAEON Consults: IP CONSULT TO ORTHOPEDIC SURGERY IP CONSULT TO GERIATRICS IP CONSULT TO PALLIATIVE CARE MEDICATIONS: Current Facility-Administered Medications Medication Dose Route Frequency Provider Last Rate Last Admin vitamin D (ERGOCALCIFEROL) capsule 50,000 Units 50,000 Units Oral Weekly Shweta Carson APRN - GENERAL LABOR FORKLIFT OPERATOR 50,000 Units at 06/03/22 1053 enoxaparin Sodium (LOVENOX) injection 30 mg 30 mg SubCUTAneous BID Earl Richardson PA-C 30 mg at 06/03/222005 [Held by provider] methocarbamol (ROBAXIN) tablet 500 mg 500 mg Oral TID Earl Richardson PA-C 500 mgat 06/02/22 1338 carBAMazepine (TEGRETOL) tablet 200 mg 200 mg Oral TID Earl Richardson PA-C 200 mg at 06/03/222005 venlafaxine (EFFEXOR XR) extended release capsule 37.5 mg 37.5 mg Oral Daily Earl Richardson PA-C 37.5 mg at 06/03/22 0758 albuterol (PROVENTIL) nebulizer solution 1.25 mg 1.25 mg Nebulization Q6H PRN Earl Richardson PA-C 1.25 mg at 06/02/22 2201 naloxone (NARCAN) injection 0.4 mg 0.4 mg IntraVENous PRN Earl Richardson PA-C oxyCODONE (ROXICODONE) immediate release tablet 2.5 mg 2.5 mg Oral Q4H PRN Earl Richardson PA-C Or oxyCODONE (ROXICODONE) immediate release tablet 5 mg 5 mg Oral Q4H PRN Earl Richardson PA-C 5 mg at 06/04/22 0604 sodium chloride flush 0.9 % injection 5-40 mL 5-40 mL IntraVENous 2 times per day Earl Richardson PA-C 10 mL at 06/03/22 0759 sodium chloride flush 0.9 % injection 5-40 mL 5-40 mL IntraVENous PRN Earl Richardson PA-C 0.9 % sodium chloride infusion IntraVENous PRN Earl Richardson PA-C ondansetron (ZOFRAN-ODT) disintegrating tablet 4 mg 4 mg Oral Q8H PRN Earl Richardson PA-C Or ondansetron (ZOFRAN) injection 4 mg 4 mg IntraVENous Q6H PRN Earl Richardson PA-C 4 mg at 06/03/22 1812 polyethylene glycol (GLYCOLAX) packet 17 g 17 g Oral Daily Earl Richardson PA-C 17 g at 06/03/22 0754 acetaminophen (TYLENOL) tablet 1,000 mg 1,000 mg Oral 3 times per day Earl Richardson PA-C 1,000 mg at 06/04/22 0608 senna (SENOKOT) tablet 8.6 mg 1 tablet Oral Daily PRN Earl Richardson PA-C bisacodyl (DULCOLAX) EC tablet 5 mg 5 mg Oral Daily Earl Richardson PA-C 5 mg at 06/03/222006 busPIRone (BUSPAR) tablet 10 mg 10 mg Oral TID Earl Richardson PA-C 10 mg at 06/03/222005 fludrocortisone (FLORINEF) tablet 0.1 mg 0.1 mg Oral Daily Earl Richardson PA-C 0.1 mg at 06/03/22 0758 levothyroxine (SYNTHROID) tablet 150 mcg 150 mcg Oral Daily Earl Dylan, PA-C 150 mcg at 608 melatonin tablet 5 mg 5 mg Oral Daily Earl Dylan, PA-C 5 mg at 06/03/222005 midodrine (PROAMATINE) tablet 5 mg 5 mg Oral TID Earl Dylan, PA-C 5 mg at 06/03/222006 pantoprazole (PROTONIX) tablet 40 mg 40 mg Oral BID Earl Dylan, PA-C 40 mg at 06/03/222006 pravastatin (PRAVACHOL) tablet 40 mg 40 mg Oral Daily Earl Dylan, PA-C 40 mg at 06/03/22754 pregabalin (LYRICA) capsule 150 mg 150 mg Oral BID Earl Dylan, PA-C 150 mg at 06/03/222006 risperiDONE (RISPERDAL) tablet 0.5 mg 0.5 mg Oral BID Earl Dylan, PA-C 0.5 mg at 06/03/222006 traZODone (DESYREL) tablet 50 mg 50 mg Oral Nightly Earl Dylan, PA-C 50 mg at 06/03/222006 ARE THERE PERTINENT UPDATES TO PAST,FAMILY, OR SOCIAL HISTORY?: No Subjective: Patient feeling well. States her pain is under control. Review of Systems Constitutional: Positive for activity change. HENT: Negative. Respiratory: Negative. Cardiovascular: Negative. Gastrointestinal: Negative. Genitourinary: Negative. Musculoskeletal: Positive for arthralgias, gait problem, joint swelling and myalgias. Skin: Negative. Neurological: Positive for syncope. Negative for dizziness. Psychiatric/Behavioral: Negative. All other systems reviewed and are negative. PHQ In the last 2 weeks have you had: Little interest or pleasure in doing things No Been feeling down, depressed, or hopeless No If greater then 0, place CLP consult Date PHQ completed: 05/31/2022 Objective: Patient Vitals for the past 24 hrs: BP Temp Temp src Pulse Resp SpO2 06/04/22 0148 -- -- -- -- 22 -- 06/03/22 1556 117/60 98 F (36.7 C) Temporal 82 20 95 % Last BM: 06/01 Diet: regular PHYSICAL: Physical Exam Vitals and nursing note reviewed. Constitutional: General: She is not in acute distress. Appearance: Normal appearance. She is not ill-appearing. HENT: Head: Normocephalic. Nose: Nose normal. Mouth/Throat: Mouth: Mucous membranes are dry. Eyes: Extraocular Movements: Extraocular movements intact. Pupils: Pupils are equal, round, and reactive to light. Cardiovascular: Rate and Rhythm: Normal rate. Pulses: Normal pulses. Pulmonary: Effort: Pulmonary effort is normal. Breath sounds: Normal breath sounds. Abdominal: General: Abdomen is flat. There is no distension. Palpations: Abdomen is soft. Musculoskeletal: General: Swelling, tenderness and signs of injury present. Cervical back: Normal range of motion and neck supple. No rigidity or tenderness. Comments: L hip TTP. Incision c/d/I Foot: Left fifth digit with some swelling and ecchymosis. Minimal TTP. DP intact bilaterally. Left arm splinted, MSPs intact Skin: General: Skin is warm and dry. Capillary Refill: Capillary refill takes less than 2 seconds. Findings: No bruising. Neurological: General: No focal deficit present. Mental Status: She is alert and oriented to person, place, and time. Psychiatric: Mood and Affect: Mood normal. Sutures or cielo? No O2: NC @ 3L mostly for night time use / / / Data Review Data CBC with Differential: Lab Results Component Value Date/Time WBC 10.3 06/03/2022 12:57 PM RBC 2.95 06/03/2022 12:57 PM HGB 8.3 06/03/2022 12:57 PM HCT 25.4 06/03/2022 12:57 PM PLT 249 06/03/2022 12:57 PM CMP: Lab Results Component Value Date/Time NA 138 06/03/2022 12:57 PM K 3.5 06/03/2022 12:57 PM CL 101 06/03/2022 12:57 PM CO2 35 06/03/2022 12:57 PM BUN 14 06/03/2022 12:57 PM CREATININE 0.66 06/03/2022 12:57 PM GLUCOSE 145 06/03/2022 12:57 PM CALCIUM 8.2 06/03/2022 12:57 PM BMP: Hepatic Function Panel:Ionized Calcium: No results found for: IONCA Magnesium: No results found for: MG Phosphorus: No results found for: PHOS PT/INR: Lab Results Component Value Date/Time PROTIME 10.7 05/30/2022 09:38 AM INR 1.0 05/30/2022 09:38 AM PTT: Lab Results Component Value Date/Time APTT 27.1 05/30/2022 09:38 AM [APTT Last 3 Troponin: Lab Results Component Value Date/Time TROPONINI <0.012 05/30/2022 09:38 AM Urine Culture: No components found for: CURINE Blood Culture: No components found for: CBLOOD, CFUNGUSBL Blood Culture from Central Line: No components found for: CBLOODLN Stool Culture: No components found for: CSTOOL Sputum Culture: No components found for: CSPUTUM Sputum Culture for AFB: No components found for: CAFBSM Wound Culture: NA Radiology: XR ELBOW LEFT (MIN 3 VIEWS) Result Date: 05/30/2022 Patient Name: ANDRE BLANCA Diagnostic Radiology ACCESSION EXAMDATE/TIME PROCEDURE ORDERING PROVIDER [id number] 05/30/2022 10:17 EDT CR Elbow 3+ Views Left [id number] -MARGARET CUEVAS CPT code 91838 Reason For Exam (CR Elbow 3+ Views Left) left elbow pain s/p fall Report LEFT ELBOW CLINICAL INDICATION: Pain after trauma left elbow pain s/p fall AP, lateral, andoblique plain film views of the left elbow were obtained. COMPARISON: None FINDINGS: There is an acute, mildly comminuted olecranon fracture of the humerus with mild proximal retraction of the major olecranon fracture fragment. Radiocapitellar alignment is maintained. Soft tissue swelling is present overlying the fracture. No fracture of the distal humerus or proximal radius is identified. IMPRESSION: Mildly displaced and mildly comminuted acute olecranon fracture. Report Dictated on --- Final --- Dictated: 05/30/2022 10:22 am Dictating Physician: MD IGLESIAS THOMAS Signed Date and Time: 05/30/2022 10:24 am Signed by: MD IGLESIAS THOMAS Transcribed Date and Time: 05/30/2022 10:22 XR FEMUR LEFT (MIN 2 VIEWS) Result Date: 05/30/2022 Patient Name: ANDRE BLANCA Diagnostic Radiology ACCESSION EXAMDATE/TIME PROCEDURE ORDERING PROVIDER [id number] 05/30/2022 10:17 EDT CR Femur 2+ Views Left n [id number] -MARGARET CUEVAS CPT code 05121 Reason For Exam (CR Femur 2+ Views Left n) left leg pain s/p fall Report LEFT FEMUR PELVIS CLINICAL INDICATION: Pain left leg pain s/p fall AP and lateral plain film views of the left femur were obtained. AP radiograph the pelvis. COMPARISON: None FINDINGS: There is an acute transcervical fracture of the left femoral neck with mild anterior angulation of the fracture apex. No other acute fractures of the left femur or pelvis are identified. IMPRESSION: Acuteleft femoral neck fracture. Report Dictated on --- Final --- Dictated: 05/30/2022 10:24 am Dictating Physician: MD IGLESIAS THOMAS Signed Date and Time: 05/30/2022 10:28 am Signed by: MD IGLESIAS THOMAS Transcribed Date and Time: 05/30/2022 10:24 CT head without contrast Result Date: 05/30/2022 Patient Name: ANDRE BLANCA Computed Tomography ACCESSION EXAM DATE/TIME PROCEDURE ORDERING PROVIDER [id number] 05/30/2022 16:[address] Head or Brain w/o [id number] MOON Contrast CPT code 53554 Reason For Exam (CT Head or Brain w/o Contrast) fall on plavix Report CT BRAIN WITHOUT CONTRAST CLINICAL INDICATION: fall on plavix TECHNIQUE: CT scan of the brain without IV contrast. Multiplanar reformations. COMPARISON: Earlier on same date at 0945 hours. FINDINGS: No apparent mass or mass effect, hemorrhage, midline shift or hydrocephalus. No evidence of acute cortical infarct. No abnormal, extra-axial fluid or air collection. Patchy low density in the periventricular and subcortical white matter is nonspecific, but may relate to chronic small vessel ischemic change. Probable old lacunar infarct changes again noted in and left caudate nucleus head. Mild, diffuse volume loss. Osseous calvarium grossly intact. IMPRESSION: 1. No acute intracranial findings. 2. Probable chronic ischemic and atrophic changes. Report Dictated on --- Final --- Dictated: 05/30/2022 5:06 pm Dictating Physician: MD OCHOA WENDELL SignedDate and Time: 05/30/2022 5:10 pm Signed by: MD OCHOA WENDELL Transcribed Date and Time: 05/30/2022 5:06 CT HEAD WO CONTRAST Result Date: 05/30/2022 [id number] ACCESSION EXAM DATE/TIME PROCEDURE ORDERING PROVIDER [id number] 05/30/2022 09:[address] Head or Brain w/o [id number], LAURA Contrast CPT code 67930 Reason For Exam (CT Head or Brain w/o Contrast) trauma Report CT HEAD WITHOUT CONTRAST: INDICATION: Cough COMPARISON: None. Unenhanced CT images of the head from skull base to vertex were obtained. The images are reviewed in the axial, sagittal and coronal planes. The ventricles and sulci are enlarged, consistent with atrophy. Focal and confluent areas oflow-attenuation are noted within the subcortical and periventricular white matter suggesting chronic ischemia. There is no evidence of hemorrhage, mass or large acute infarct. A remote lacunar infarct is seen on the left near the caudate nucleus head. Additional focal areas of low-attenuation are seen involving the dionisio. There is no mass or significant shift of the midline structures. There are no extraaxial or posterior fossa masses or fluid collections. The hypothalamic and parasellar regionsare unremarkable. There is mild mucosal thickening of the right maxillary sinus. IMPRESSION: No acute intracranial process. Multifocal remote infarcts.. Report Dictated on --- Final --- Dictated: 05/30/2022 10:49 am Dictating Physician: DO MCGUIRE ALFRED Signed Dateand Time: 05/30/2022 10:56 am Signed by: DO MCGUIRE ALFRED Transcribed Date and Time: 05/30/2022 10:49 CT CERVICAL SPINE WO CONTRAST Result Date: 05/30/2022 Patient Name: ANDRE BLANCA Computed Tomography ACCESSION EXAM DATE/TIME PROCEDURE ORDERING PROVIDER [id number] 05/30/2022 09:[address] Spine Cervical w/o [id number] -CAYLA MADRIGAL Contrast CPT code 80532 Reason For Exam (CT Spine Cervical w/o Contrast) trauma Report CT CERVICAL SPINE WITHOUT CONTRAST: INDICATION: Neck pain after trauma COMPARISON: None. Axial scans of the cervical spine performed from the skull base to the thoracic inlet, with sagittal andcoronal reconstructions. On the sagittal reconstruction images, the anatomic alignment of the vertebral bodies is normal. There is no evidence of fracture or subluxation in the cervical spine. Disc sp jerardo narrowing and marginal spurring is noted at C6-C7 with mild bilateral foraminal encroachment. The prevertebral soft-tissues are normal. The craniocervical junction and C1-2 junction appear normal. The odontoid is intact. IMPRESSION: Arthritic changes. No acute process. Report Dictated on Worksta tion: [id number] --- Final --- Dictated: 05/30/2022 10:58 am Dictating Physician: DO MCGUIRE ALFRED Signed Date and Time: 05/30/2022 11:00 am Signed by: DO MCGUIRE ALFRED Transcribed Date and Time: 05/30/2022 10:58 XR Tibia Fibula Bilateral Result Date: 05/30/2022 Patient Name: ANDRE BLANCA [facility]#: [id number] Diagnostic Radiology ACCESSION EXAMDATE/TIME PROCEDURE ORDERING PROVIDER [id number] 05/30/2022 19:27 EDT CR Tibia/Fibula 2 Views MD RUTH BLAKE Bilateral CPT code 41706 Reason For Exam (CR Tibia/Fibula 2 Views Bilateral) Bilateral leg pain Report EXAMINATION: Bilateral tibia and fibula CLINICAL INDICATION: Bilateral leg pain TECHNIQUE: AP and lateral radiographs of the bilateral tibia/fibula COMPARISON: None FINDINGS: No fracture or dislocation. Degenerative changes are present in the bilateral knees, greater on the right.No soft tissue swelling. Report Dictated on --- Final --- Dictated: 05/30/2022 7:12 pm Dictating Physician: MD HICKS NICHOLAS Signed Date and Time: 05/30/2022 7:15 pm Signed by: MD HICKS NICHOLAS Transcribed Date and Time: 05/30/2022 7:12 XR CHEST PORTABLE Result Date: 05/30/2022 [id number]iology ACCESSION EXAMDATE/TIME PROCEDURE ORDERING PROVIDER [id number] 05/30/2022 10:36 EDT CR Chest Portable [id number] -LALIT PICHARDO CPT code 48385 Reason For Exam (CR Chest Portable) fall, left shoulder pain Report APCHEST X- RAY CLINICAL INDICATION: fall, left shoulder pain TECHNIQUE: AP portable x-ray of the chest. COMPARISON: None FINDINGS: Heart/Mediastinum: Prominence of the superior mediastinum is most likely from rightward patient rotation. Heart size is within normal limits. Lungs: Low lung volumes. No definite airspace consolidation or pleural effusion. Bones: No displaced fractures. Degenerative endplate spurring is present throughout the mid and lower aspects of the thoracic spine. IMPRESSION: No evidence of an acute cardiopulmonary abnormality. Report Dictated on --- Final --- Dictated: 05/30/2022 10:29 am Dictating Physician: MD IGLESIAS THOMAS Signed Date and Time: 05/30/2022 10:31 am Signed by: MD IGLESIAS THOMAS Transcribed Date and Time: 05/30/2022 10:29 XR Shoulder Left 2 VW Result Date: 05/30/2022 [id number]iology ACCESSION EXAMDATE/TIME PROCEDURE ORDERING PROVIDER [id number] 05/30/2022 10:17 EDT CR Shoulder 2+ Views [id number] -CUEVAS MARGARET Left CPT code 14909 Reason For Exam (CR Shoulder 2+ Views Left) fall, left shoulder pain Report EXAMINATION: CR Shoulder 2+ Views Left CLINICAL HISTORY: fall, left shoulder pain COMPARISON: None TECHNIQUE: Grashey, axillary, and transscapular views of the left shoulder FINDINGS: The patient is status post 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 There is mild heterotopic ossification adjacent to the glenoid prosthesis. The acromioclavicular joint is intact. No left rib fractures are identified. No osseous lesions are seen. IMPRESSION: 1. No periprosthetic fracture of the left shoulder. Report Dictated on --- Final --- Dictated: 05/30/2022 10:28 am Dictating Physician: MD IGLESIAS THOMAS Signed Date and Time: 05/30/2022 10:29 am Signed by: MD IGLESIAS THOMAS Transcribed Date and Time: 05/30/2022 10:28 XR PELVIS (1-2 VW) Result Date: 05/30/2022 Patient Name: ANDRE BLANCA Diagnostic Radiology ACCESSION EXAMDATE/TIME PROCEDURE ORDERING PROVIDER [id number] 05/30/2022 10:36 EDT CR Pelvis 1 or 2 Views [id number] -DENI PICHARDOIN CPT code 70122 Reason For Exam (CR Pelvis 1 or 2 Views) fall, left hip pain Report LEFT FEMUR PELVIS CLINICAL INDICATION: Pain left leg pain s/p fall AP and lateral plain film views of the left femur were obtained. AP radiograph the pelvis. COMPARISON: None FINDINGS: There is an acute transcervical fracture of the left femoral neck with mild anterior angulation of the fracture apex. No other acute fractures of the left femur or pelvis are identified. IMPRESSION: Acute left fem oral neck fracture. Report Dictated on --- Final --- Dictated: 05/30/2022 10:24 am Dictating Physician: MD IGLESIAS THOMAS Signed Date and Time: 05/30/2022 10:28 am Signed by: MD IGLESIAS THOMAS Transcribed Date and Time: 05/30/2022 10:24 Patient Active Problem List Diagnosis Fall at home, initial encounter Closed displaced fracture of left femoral neck (HCC) Closed fracture of left olecranon process Syncope Acute traumatic pain At risk for delirium Polypharmacy Palliative care encounter Goals of care, counseling/discussion Acute encephalopathy Vitamin D deficiency ASSESSMENT: 71y F S/P fall with Left femoral neck fx and left olecranon fx PLAN: Neuro/Spine: - Pain: Scheduled tylenol, robaxin held, prn oxy, dilaudid dc. - Hx fibromyalgia: home Lyrica - Hx bipolar/depression - Home meds: buspirone, risperidone, Effexor, trazodone, carbamazepine - Melatonin nightly - Palliative/Geriatrics consult - CT head X 2 negative - Delirium protocol HEENT: - No concerns Cardiovascular: - Hx of syncope/orthostasis - Home meds: florinef, midodrine - Orthostatic vitals pending - ECHO 01/04: EF 65% - Hx HLD: home Pravachol Pulmonary: - IS, cough and deep breathe - O2 NC @ 3L night time use FEN/GI: - Regular diet - Bowel regimen - Nausea: prn zofran - Hx GERD: home protonix : - CrCl: 75 Heme: - Hgb: 9.6, monitor ID: - No concerns Endo: - Home synthroid Lines/Devices: - PIV - [facility] removed 06/03 Prophylaxis: DVT: None DVT: negative Has DVT PPX been started? Lovenox If no, why? GI: protonix Pressure Ulcer: None, turn q 2 hours Musculoskeletal: - Left olecranon fx - left olecranon fx ORIF 06/01 - Left femoral neck fx - left femoral endoprosthetic replacement 05/31 - Left foot 5th digit fracture; post op shoe WB Status: RUE:AT LUE: NWB RLE: AT LLE: WBAT Is the patient in restraints?: no Medications Reconciled- Yes [x] NO [], why Disposition: Continue H6 care, dispo planning, medically ready Associated attestation - Cayla Madrigal MD - 06/05/2022 2:40 AM EDT ATTENDING ADDENDUM Active Diagnoses/Problems this Admission: Hospital Problems Last Modified POA Fall at home, initial encounter 05/30/2022 Yes Closed displaced fracture of left femoral neck (HCC) 05/30/2022 Yes Closed fracture of left olecranon process 05/30/2022 Yes Syncope 05/30/2022 Yes Acute traumatic pain 05/30/2022 Yes At risk for delirium 05/31/2022 Yes Polypharmacy 05/31/2022 Yes Palliative care encounter 05/31/2022 Yes Goals of care, counseling/discussion 05/31/2022 Yes Acute encephalopathy 06/01/2022 Yes Vitamin D deficiency 06/02/2022 Yes I personally supervised the FREDERICK/ANALISA in the evaluation and development of a treatment plan for this patient on the same day of service as above. I personally discussed the review of systems and interviewed the patient along with performing a physical examination. I reviewed the recent events, imaging, labs, vital signs. In addition, I discussed the patient's condition and treatment options with him/her when possible. I have also reviewed and agree with the past medical, family, and social history unless otherwise noted. All of the patient's questions were answered and family updated when appropriate and possible. A complete review of systems was obtained and is negative except as stated in HPI and/or SubjectiveSection. POD#4 s/p ORIF L femur, POD#3 s/p ORIF L olecranon. Doing well. PT/OT recommending SNF, anticipate discharge back to [facility] once accepted. Greater than 51% of the >= 25 minute total care time throughout the day (including chart review,care coordination, and [id number] encounter) was spent discussing/counseling the patient/family regarding the care plan for Andre Blanca. I examined the patient independently and reviewed relevant data myself and may have done so in the context of team rounds. A full chart review was performed. Cayla Madrigal MD Division of Trauma Department of Surgery [facility] Pager: [phone] * Earl Richardson PA-C - 06/03/2022 1:25 PM EDT Images from the original note were not included. Department of Orthopedic Surgery Progress Note SUBJECTIVE: Patient is s/p L blanca 05/31 and ORIF left olecranon 06/01. Patient resting in bed. Pain is overall well controlled. Plan is for eventual discharge to rehab facility. OBJECTIVE: General: NAD LLE: Dressing: clean, dry, and intact +motor DF/PF/EHL LUE: Splint to LUE c/d/I SILT median/ulnar/radial n. PLAN: -NWB LUE, splinted, keep c/d/I -WBAT LLE -Posterior hip precautions -PT/OT -Hip Dressing: Okay to remove dressing POD#2, if dry leave open to air, if saturated replace PRN -DVT, medical, and pain management per 1 -F/u with Dr. Jacobsen in 2 weeks -d/c instructions in chart -Please page installation 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 ortho resident with questions/concerns Spoke to patient regarding the post operative plan. Discharge instructions and follow up were explained. We discussed the natural course of injury and expectations moving forward. Patient voiced their understanding and is agreeable with the current plan. All questions were answered. Patient was advised to contact our office with any questions or concerns. Earl Richardson PA-C Orthopedic Surgery * Shweta Carson APRN - GENERAL LABOR FORKLIFT OPERATOR - 06/03/2022 11:31 AM EDT Images from the original note were not included. [facility] Geriatric Medicine Inpatient Consult Service Admission Date: 05/30/2022 Admission Status: INPATIENT Chief Complaint: fall Reason for Appointment Geriatrics consulted for Trauma due to Fall Assessment Active Problems: Fall at home, initial encounter Closed displaced fracture of left femoral neck (HCC) Closed fracture of left olecranon process Syncope Acute traumatic pain At risk for delirium Polypharmacy Palliative care encounter Goals of care, counseling/discussion Acute encephalopathy Vitamin D deficiency Resolved Problems: * No resolved hospital problems. * Plan Acute encephalopathy - waxing/waning vs improving: mental status appears to be improved at time of visit this morning - multifactorial: pain, sedating medications, post operative status - assess and treat for pain first if agitation presents- currently holding robaxin due to concern for oversedation noted yesterday, if additional pain control needed may consider risk vs benefits of restarting an bedtime dose - if treating pain is unsuccessful and patient remains agitated and a harm to self, others or care-may consider use of PRN Seroquel 12.5mg - Qtc 455 - monitor for urinary retention/constipation- last BM 06/01, kaiser removed - promote sleep/wake cycle- continue nightly melatonin - Avoid sedating/anticholinergic medications, encourage sleep hygiene, encourage family visits, optimize sensory input and access to assistive devices where indicated, encourage time up in chair as able and D/c Kaiser, restraints, IV lines, as able Fall Vitamin D deficiency - unwitnessed fall at facility - patient does have history of syncopal falls from her most recent hospitalization from 12/2021- wasstarted on midodrine and florinef at that time - EKG, Echo done during last hospitalization - recommend recheck of orthostatic vital signs as able - Vit D low at 18- in setting of fall, high dose supplementation started, continue once weekly for 8-10 weeks as outpatient - medications with increased risk for fall: carbamazepine, metoclopramide, pregabalin, risperidone - PT/OT as able - Recommend follow up with osteoporosis clinic as outpatient Acute traumatic pain -L femoral neck fracture and L olecranon fracture, s/p L blanca 05/31, s/p L olecranon fx ORIF 06/01 - continue scheduled tylenol, holding robaxin at this time as above, low dose oxycodone and hydromorphone- continue to use lowest possible effective dose and ongoing assessment for adequate pain control vs oversedation -continue oxycodone rather than tramadol for pain as tramadol can lower the seizure threshold - monitor for constipation with opioid use- last BM yesterday- agree with current schedule bowel regimen Polypharmacy - on multiple medications with increased risk for fall/confusion in this older adult - agree with med changes made to reflect prior to admission dosing - recommend changing metoclopramide as PO as able Follow-up: Will plan to see on Monday, for questions over the weekend please page installation 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 provider,Dr. Apodaca Subjective: HPI 71 y.o. year-old female presented from facility ([facility]) for fall. Per review of H&P : unwitnessed fall at [facility], patient reportedly blacked out and woke up on the floor, takes Plavix. CT head was negative for ICH, XR L elbow with "mildy displaced and mildy comminuted acute olecranonfracture" and XR L femur with "acute left femoral neck fracture" Ortho surgery consulted: plan for OR for ORIF L olecranon and L hip blanca arthroplasty today. NPO prior to OR. Patient is known to geriatric inpatient service- recent hospitalization from 01/04-01/07 for syncopalfall. MMSE Score at that time was within normal range with score of 26/30. Recommendations were made for polypharmacy that may have contributed to fall risk. Midodrine and Florinef were added and d/c'ed back to facility. Interval History : remains on H6 No reported overnight events Patient reports that she is doing ok today, she does report pain at time of visit, states some difficulty sleeping overnight, appetite is good, remains slightly confused- thinks she is currently in [place]. PT eval pending, OT recommending SNF Review of Systems Constitutional: Positive for activity change. Negative for appetite change. Respiratory: Negative for cough and shortness of breath. Cardiovascular: Negative for chest pain. Gastrointestinal: Negative for constipation and nausea. Musculoskeletal: Positive for arthralgias and gait problem. Neurological: Negative for headaches. Psychiatric/Behavioral: Positive for confusion and sleep disturbance. Objective: BP (!) 119/49 Pulse 85 Temp 99 F (37.2 C) (Temporal) Resp 18 Ht 5' 7" (1.702 m) Wt 195 lb(88.5 kg) SpO2 95% BMI 30.54 kg/m Intake/Output Summary (Last 24 hours) at 06/03/2022 1132 Last data filed at 06/03/2022 0811 Gross per 24 hour Intake -- Output 2000 ml Net -2000 ml No data found. Physical Exam Constitutional: General: She is not in acute distress. Comments: Lying in bed, pleasant and cooperative HENT: Mouth/Throat: Mouth: Mucous membranes are moist. Pharynx: Oropharynx is clear. Eyes: General: Right eye: No discharge. Left eye: No discharge. Conjunctiva/sclera: Conjunctivae normal. Comments: Glasses Cardiovascular: Rate and Rhythm: Normal rate and regular rhythm. Heart sounds: Normal heart sounds. Pulmonary: Effort: Pulmonary effort is normal. No respiratory distress. Breath sounds: Normal breath sounds. No wheezing, rhonchi or rales. Comments: Anterior only auscultated Abdominal: General: Bowel sounds are normal. There is no distension. Palpations: Abdomen is soft. Tenderness: There is no abdominal tenderness. Musculoskeletal: Comments: LUE splint in place Neurological: Mental Status: She is alert. She is disoriented. Comments: Alert and oriented to self only- states she thinks she is in [place] at time of visit, remains slightly confused Psychiatric: Attention and Perception: Attention normal. Behavior: Behavior is not agitated or aggressive. Labs and Imaging: No results found for this or any previous visit (from the past 24 hour(s)). No results found for: TSH No components found for: B12 Lab Results Component Value Date VITD25 18 (L) 06/01/2022 Reviewed: active problem list, medication list, allergies, family history, notes from last encounter, lab results, imaging at 11:32 AM * Jeannine Card PA-C - 06/03/2022 6:53 AM EDT Images from the original note were not included. Daily Trauma Progress Note JORGE ALBERTO 06/03/2022 6:53 AM Admit Date: 05/30/2022 Post Trauma Day 4 Fall SH HISTORY OF TRAUMATIC EVENT: 71 y.o. female status post unwitnessed fall at her ECF. The incident happened at an unknown time. When the event happened the patient states she blacked out and woke up onthe floor of her room. She started to scream and cry when she awoke and states another resident called for help. P INJURIES: Left femoral neck fx Left olecranon fx PROCEDURES: - left femoral endoprosthetic replacement 05/31 - ORIFof left olecranon fracture 06/01 INCIDENTAL FINDINGS: None CHIEF COMPLAINT: Left arm pain PREVIOUS 24 HOUR EVENTS: - OT: SNF - DVT negative Consults: IP CONSULT TO ORTHOPEDIC SURGERY IP CONSULT TO GERIATRICS IP CONSULT TO PALLIATIVE CARE MEDICATIONS: Current Facility-Administered Medications Medication Dose Route Frequency Provider Last Rate Last Admin vitamin D (ERGOCALCIFEROL) capsule 50,000 Units 50,000 Units Oral Weekly FREDERICK Eisenberg CNP enoxaparin Sodium (LOVENOX) injection 30 mg 30 mg SubCUTAneous BID Earl Richardson PA-C 30 mg at 06/02/222049 [Held by provider] methocarbamol (ROBAXIN) tablet 500 mg 500 mg Oral TID Earl Richardson PA-C 500 mgat 06/02/22 1338 HYDROmorphone (DILAUDID) injection 0.5 mg 0.5 mg IntraVENous Q3H PRN Earl Richardson PA-C Or HYDROmorphone (DILAUDID) injection 1 mg 1 mg IntraVENous Q3H PRN Earl Richardson PA-C 1 mg at 06/02/22 0857 carBAMazepine (TEGRETOL) tablet 200 mg 200 mg Oral TID Earl Richardson PA-C 200 mg at 06/02/220 venlafaxine (EFFEXOR XR) extended release capsule 37.5 mg 37.5 mg Oral Daily Earl Richardson PA-C 37.5 mg at 06/02/22 0846 albuterol (PROVENTIL) nebulizer solution 1.25 mg 1.25 mg Nebulization Q6H PRN Earl Richardson PA-C 1.25 mg at 06/02/22 220 metoclopramide (REGLAN) injection 5 mg 5 mg IntraVENous BID Earl Richardson PA-C 5 mg at 06/02/222049 naloxone (NARCAN) injection 0.4 mg 0.4 mg IntraVENous PRN Earl Richardson PA-C oxyCODONE (ROXICODONE) immediate release tablet 2.5 mg 2.5 mg Oral Q4H PRN Earl Richardson PA-C Or oxyCODONE (ROXICODONE) immediate release tablet 5 mg 5 mg Oral Q4H PRN Earl Richardson PA-C 5 mg at 06/03/22 0446 sodium chloride flush 0.9 % injection 5-40 mL 5-40 mL IntraVENous 2 times per day Earl Richardson PA-C 10 mL at 06/02/222050 sodium chloride flush 0.9 % injection 5-40 mL 5-40 mL IntraVENous PRN CARLOS Lyle-C 0.9 % sodium chloride infusion IntraVENous PRN Earl Richardson PA-C ondansetron (ZOFRAN-ODT) disintegrating tablet 4 mg 4 mg Oral Q8H PRN Earl Richardson PA-C Or ondansetron (ZOFRAN) injection 4 mg 4 mg IntraVENous Q6H PRN Earl Richardson PA-C 4 mg at 05/30/22 1127 polyethylene glycol (GLYCOLAX) packet 17 g 17 g Oral Daily Earl Richardson PA-C 17 g at 10/20/22 0847 acetaminophen (TYLENOL) tablet 1,000 mg 1,000 mg Oral 3 times per day Earl Dylan, PA-C 1,000 mg at 06/03/22 05 senna (SENOKOT) tablet 8.6 mg 1 tablet Oral Daily PRN Earl Dylan, PA-C bisacodyl (DULCOLAX) EC tablet 5 mg 5 mg Oral Daily Earl Dyaln, PA-C 5 mg at 06/02/222050 busPIRone (BUSPAR) tablet 10 mg 10 mg Oral TID Earl Dylan, PA-C 10 mg at 06/02/222050 fludrocortisone (FLORINEF) tablet 0.1 mg 0.1 mg Oral Daily Earl Dylan, PA-C 0.1 mg at 06/02/22846 levothyroxine (SYNTHROID) tablet 150 mcg 150 mcg Oral Daily Earl Dylan, PA-C 150 mcg at melatonin tablet 5 mg 5 mg Oral Daily Earl Dylan, PA-C 5 mg at 06/02/222050 midodrine (PROAMATINE) tablet 5 mg 5 mg Oral TID Earl Dylan, PA-C 5 mg at 06/02/222049 pantoprazole (PROTONIX) tablet 40 mg 40 mg Oral BID Earl Dylan, PA-C 40 mg at 06/02/222050 pravastatin (PRAVACHOL) tablet 40 mg 40 mg Oral Daily Earl Dylan, PA-C 40 mg at 06/02/22846 pregabalin (LYRICA) capsule 150 mg 150 mg Oral BID Earl Dylan, PA-C 150 mg at 06/02/222050 risperiDONE (RISPERDAL) tablet 0.5 mg 0.5 mg Oral BID Earl Dylan, PA-C 0.5 mg at 06/02/222050 traZODone (DESYREL) tablet 50 mg 50 mg Oral Nightly Earl Dylan, PA-C 50 mg at 06/02/222050 ARE THERE PERTINENT UPDATES TO PAST,FAMILY, OR SOCIAL HISTORY?: No Subjective: Patient feeling well. States her pain is under control. No further delirium or hallucinations. Review of Systems Constitutional: Positive for activity change. HENT: Negative. Respiratory: Negative. Cardiovascular: Negative. Gastrointestinal: Negative. Genitourinary: Negative. Musculoskeletal: Positive for arthralgias, gait problem, joint swelling and myalgias. Skin: Negative. Neurological: Positive for syncope. Negative for dizziness. Psychiatric/Behavioral: Negative. All other systems reviewed and are negative. PHQ In the last 2 weeks have you had: Little interest or pleasure in doing things No Been feeling down, depressed, or hopeless No If greater then 0, place CLP consult Date PHQ completed: 05/31/2022 Objective: Patient Vitals for the past 24 hrs: BP Temp Temp src Pulse Resp SpO2 06/03/22 0454 (!) 119/49 99 F (37.2 C) Temporal 85 18 95 % 06/02/22 2202 -- -- -- 95 16 98 % 06/02/22 2140 (!) 119/54 98.3 F (36.8 C) Temporal 97 16 96 % 06/02/22 1619 (!) 126/53 98.3 F (36.8 C) Temporal 98 16 (!) 79 % 06/02/22 1232 138/74 97.7 F (36.5 C) Temporal (!) 105 16 (!) 75 % 06/02/22 0800 (!) 114/47 97.2 F (36.2 C) Temporal 88 16 96 % Last BM: 06/01 Diet: regular PHYSICAL: Physical Exam Vitals and nursing note reviewed. Constitutional: General: She is not in acute distress. Appearance: Normal appearance. She is not ill-appearing. HENT: Head: Normocephalic. Nose: Nose normal. Mouth/Throat: Mouth: Mucous membranes are dry. Eyes: Extraocular Movements: Extraocular movements intact. Pupils: Pupils are equal, round, and reactive to light. Cardiovascular: Rate and Rhythm: Normal rate. Pulses: Normal pulses. Pulmonary: Effort: Pulmonary effort is normal. Breath sounds: Normal breath sounds. Abdominal: General: Abdomen is flat. There is no distension. Palpations: Abdomen is soft. Genitourinary: Comments: Kaiser removed today Musculoskeletal: General: Swelling, tenderness and signs of injury present. Cervical back: Normal range of motion and neck supple. No rigidity or tenderness. Comments: L hip TTP. Incision c/d/I Foot: Left fifth digit with some swelling and ecchymosis. Minimal TTP. DP intact bilaterally. Left arm splinted, MSPs intact Skin: General: Skin is warm and dry. Capillary Refill: Capillary refill takes less than 2 seconds. Findings: No bruising. Neurological: General: No focal deficit present. Mental Status: She is alert and oriented to person, place, and time. Psychiatric: Mood and Affect: Mood normal. Sutures or cielo? No O2: NC @ 3L mostly for night time use / / / Data Review Data CBC with Differential: Lab Results Component Value Date/Time WBC 12.2 06/01/2022 01:41 AM RBC 3.55 06/01/2022 01:41 AM HGB 9.6 06/01/2022 01:41 AM HCT 30.0 06/01/2022 01:41 AM PLT 256 06/01/2022 01:41 AM CMP: Lab Results Component Value Date/Time NA 137 06/01/2022 01:41 AM K 4.1 06/01/2022 01:41 AM CL 102 06/01/2022 01:41 AM CO2 31 06/01/2022 01:41 AM BUN 14 06/01/2022 01:41 AM CREATININE 0.78 06/01/2022 01:41 AM GLUCOSE 155 06/01/2022 01:41 AM CALCIUM 8.7 06/01/2022 01:41 AM BMP: Hepatic Function Panel:Ionized Calcium: No results found for: IONCA Magnesium: No results found for: MG Phosphorus: No results found for: PHOS PT/INR: Lab Results Component Value Date/Time PROTIME 10.7 05/30/2022 09:38 AM INR 1.0 05/30/2022 09:38 AM PTT: Lab Results Component Value Date/Time APTT 27.1 05/30/2022 09:38 AM [APTT Last 3 Troponin: Lab Results Component Value Date/Time TROPONINI <0.012 05/30/2022 09:38 AM Urine Culture: No components found for: CURINE Blood Culture: No components found for: CBLOOD, CFUNGUSBL Blood Culture from Central Line: No components found for: CBLOODLN Stool Culture: No components found for: CSTOOL Sputum Culture: No components found for: CSPUTUM Sputum Culture for AFB: No components found for: CAFBSM Wound Culture: NA Radiology: XR ELBOW LEFT (MIN 3 VIEWS) Result Date: 05/30/2022 Patient Name: ANDRE BLANCA Diagnostic Radiology ACCESSION EXAMDATE/TIME PROCEDURE ORDERING PROVIDER [id number] 05/30/2022 10:17 EDT CR Elbow 3+ Views Left [id number] -MARGARET CUEVAS CPT code 85222 Reason For Exam (CR Elbow 3+ Views Left) left elbow pain s/p fall Report LEFT ELBOW CLINICAL INDICATION: Pain after trauma left elbow pain s/p fall AP, lateral, andoblique plain film views of the left elbow were obtained. COMPARISON: None FINDINGS: There is an acute, mildly comminuted olecranon fracture of the humerus with mild proximal retraction of the major olecranon fracture fragment. Radiocapitellar alignment is maintained. Soft tissue swelling is present overlying the fracture. No fracture of the distal humerus or proximal radius is identified. IMPRESSION: Mildly displaced and mildly comminuted acute olecranon fracture. Report Dictated on --- Final --- Dictated: 05/30/2022 10:22 am Dictating Physician: MD IGLESIAS THOMAS Signed Date and Time: 05/30/2022 10:24 am Signed by: MD IGLESIAS THOMAS Transcribed Date and Time: 05/30/2022 10:22 XR FEMUR LEFT (MIN 2 VIEWS) Result Date: 05/30/2022 Patient Name: ANDRE BLANCA Diagnostic Radiology ACCESSION EXAMDATE/TIME PROCEDURE ORDERING PROVIDER [id number] 05/30/2022 10:17 EDT CR Femur 2+ Views Left n [id number] MARGARET ASHRAF CPT code 06071 Reason For Exam (CR Femur 2+ Views Left n) left leg pain s/p fall Report LEFT FEMUR PELVIS CLINICAL INDICATION: Pain left leg pain s/p fall AP and lateral plain film views of the left femur were obtained. AP radiograph the pelvis. COMPARISON: None FINDINGS: There is an acute transcervical fracture of the left femoral neck with mild anterior angulation of the fracture apex. No other acute fractures of the left femur or pelvis are identified. IMPRESSION: Acuteleft femoral neck fracture. Report Dictated on --- Final --- Dictated: 05/30/2022 10:24 am Dictating Physician: MD IGLESIAS THOMAS Signed Date and Time: 05/30/2022 10:28 am Signed by: MD IGLESIAS THOMAS Transcribed Date and Time: 05/30/2022 10:24 CT head without contrast Result Date: 05/30/2022 Patient Name: ANDRE BLANCA Computed Tomography ACCESSION EXAM DATE/TIME PROCEDURE ORDERING PROVIDER [id number] 05/30/2022 16:[address] Head or Brain w/o [id number], RADHA Contrast CPT code 87127 Reason For Exam (CT Head or Brain w/o Contrast) fall on plavix Report CT BRAIN WITHOUT CONTRAST CLINICAL INDICATION: fall on plavix TECHNIQUE: CT scan of the brain without IV contrast. Multiplanar reformations. COMPARISON: Earlier on same date at 0945 hours. FINDINGS: No apparent mass or mass effect, hemorrhage, midline shift or hydrocephalus. No evidence of acute cortical infarct. No abnormal, extra-axial fluid or air collection. Patchy low density in the periventricular and subcortical white matter is nonspecific, but may relate to chronic small vessel ischemic change. Probable old lacunar infarct changes again noted in and left caudate nucleus head. Mild, diffuse volume loss. Osseous calvarium grossly intact. IMPRESSION: 1. No acute intracranial findings. 2. Probable chronic ischemic and atrophic changes. Report Dictated on --- Final --- Dictated: 05/30/2022 5:06 pm Dictating Physician: MD OCHOA WENDELL SignedDate and Time: 05/30/2022 5:10 pm Signed by: MD OCHOA WENDELL Transcribed Date and Time: 05/30/2022 5:06 CT HEAD WO CONTRAST Result Date: 05/30/2022 Patient Name: ANDRE BLANCA Computed Tomography ACCESSION EXAM DATE/TIME PROCEDURE ORDERING PROVIDER [id number] 05/30/2022 09:[address] Head or Brain w/o [id number], CAYLA Contrast CPT code 25074 Reason For Exam (CT Head or Brain w/o Contrast) trauma Report CT HEAD WITHOUT CONTRAST: INDICATION: Cough COMPARISON: None. Unenhanced CT images of the head from skull base to vertex were obtained. The images are reviewed in the axial, sagittal and coronal planes. The ventricles and sulci are enlarged, consistent with atrophy. Focal and confluent areas oflow-attenuation are noted within the subcortical and periventricular white matter suggesting chronic ischemia. There is no evidence of hemorrhage, mass or large acute infarct. A remote lacunar infarct is seen on the left near the caudate nucleus head. Additional focal areas of low-attenuation are seen involving the dionisio. There is no mass or significant shift of the midline structures. There are no extraaxial or posterior fossa masses or fluid collections. The hypothalamic and parasellar regionsare unremarkable. There is mild mucosal thickening of the right maxillary sinus. IMPRESSION: No acute intracranial process. Multifocal remote infarcts.. Report Dictated on --- Final --- Dictated: 05/30/2022 10:49 am Dictating Physician: DO MCGUIRE ALFRED Signed Dateand Time: 05/30/2022 10:56 am Signed by: DO MCGUIRE ALFRED Transcribed Date and Time: 05/30/2022 10:49 CT CERVICAL SPINE WO CONTRAST Result Date: 05/30/2022 Patient Name: ANDRE BLANCA Computed Tomography ACCESSION EXAM DATE/TIME PROCEDURE ORDERING PROVIDER [id number] 05/30/2022 09:[address] Spine Cervical w/o [id number] -CAYLA MADRIGAL Contrast CPT code 13801 Reason For Exam (CT Spine Cervical w/o Contrast) trauma Report CT CERVICAL SPINE WITHOUT CONTRAST: INDICATION: Neck pain after trauma COMPARISON: None. Axial scans of the cervical spine performed from the skull base to the thoracic inlet, with sagittal andcoronal reconstructions. On the sagittal reconstruction images, the anatomic alignment of the vertebral bodies is normal. There is no evidence of fracture or subluxation in the cervical spine. Disc sp jerardo narrowing and marginal spurring is noted at C6-C7 with mild bilateral foraminal encroachment. The prevertebral soft-tissues are normal. The craniocervical junction and C1-2 junction appear normal. The odontoid is intact. IMPRESSION: Arthritic changes. No acute process. Report Dictated on Worksta tion: [id number] --- Final --- Dictated: 05/30/2022 10:58 am Dictating Physician: DO MCGUIRE ALFRED Signed Date and Time: 05/30/2022 11:00 am Signed by: DO MCGUIRE ALFRED Transcribed Date and Time: 05/30/2022 10:58 XR Tibia Fibula Bilateral Result Date: 05/30/2022 [id number] ACCESSION EXAMDATE/TIME PROCEDURE ORDERING PROVIDER [id number] 05/30/2022 19:27 EDT CR Tibia/Fibula 2 Views MD FAARZ, ERLINDA Bilateral CPT code 74125 Reason For Exam (CR Tibia/Fibula 2 Views Bilateral) Bilateral leg pain Report EXAMINATION: Bilateral tibia and fibula CLINICAL INDICATION: Bilateral leg pain TECHNIQUE: AP and lateral radiographs of the bilateral tibia/fibula COMPARISON: None FINDINGS: No fracture or dislocation. Degenerative changes are present in the bilateral knees, greater on the right.No soft tissue swelling. Report Dictated on --- Final --- Dictated: 05/30/2022 7:12 pm Dictating Physician: MD HICKS NICHOLAS Signed Date and Time: 05/30/2022 7:15 pm Signed by: MD HICKS NICHOLAS Transcribed Date and Time: 05/30/2022 7:12 XR CHEST PORTABLE Result Date: 05/30/2022 [id number] Diagnostic Radiology ACCESSION EXAMDATE/TIME PROCEDURE ORDERING PROVIDER [id number] 05/30/2022 10:36 EDT CR Chest Portable Cynthia HINTONMALATHILALIT LEON CPT code 74554 Reason For Exam (CR Chest Portable) fall, left shoulder pain Report APCHEST X- RAY CLINICAL INDICATION: fall, left shoulder pain TECHNIQUE: AP portable x-ray of the chest. COMPARISON: None FINDINGS: Heart/Mediastinum: Prominence of the superior mediastinum is most likely from rightward patient rotation. Heart size is within normal limits. Lungs: Low lung volumes. No definite airspace consolidation or pleural effusion. Bones: No displaced fractures. Degenerative endplate spurring is present throughout the mid and lower aspects of the thoracic spine. IMPRESSION: No evidence of an acute cardiopulmonary abnormality. Report Dictated on --- Final --- Dictated: 05/30/2022 10:29 am Dictating Physician: MD IGLESIAS THOMAS Signed Date and Time: 05/30/2022 10:31 am Signed by: MD IGLESIAS THOMAS Transcribed Date and Time: 05/30/2022 10:29 XR Shoulder Left 2 VW Result Date: 05/30/2022 Patient Name: ANDRE BLANCA Diagnostic Radiology ACCESSION EXAMDATE/TIME PROCEDURE ORDERING PROVIDER [id number] 05/30/2022 10:17 EDT CR Shoulder 2+ Views [id number] -MARGARET CUEVAS Left CPT code 01001 Reason For Exam (CR Shoulder 2+ Views Left) fall, left shoulder pain Report EXAMINATION: CR Shoulder 2+ Views Left CLINICAL HISTORY: fall, left shoulder pain COMPARISON: None TECHNIQUE: Grashey, axillary, and transscapular views of the left shoulder FINDINGS: The patient is status post 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 There is mild heterotopic ossification adjacent to the glenoid prosthesis. The acromioclavicular joint is intact. No left rib fractures are identified. No osseous lesions are seen. IMPRESSION: 1. No periprosthetic fracture of the left shoulder. Report Dictated on --- Final --- Dictated: 05/30/2022 10:28 am Dictating Physician: MD IGLESIAS THOMAS Signed Date and Time: 05/30/2022 10:29 am Signed by: MD IGLESIAS THOMAS Transcribed Date and Time: 05/30/2022 10:28 XR PELVIS (1-2 VW) Result Date: 05/30/2022 Patient Name: ANDRE BLANCA Diagnostic Radiology ACCESSION EXAMDATE/TIME PROCEDURE ORDERING PROVIDER [id number] 05/30/2022 10:36 EDT CR Pelvis 1 or 2 Views [id number] -LALIT PICHARDO CPT code 40267 Reason For Exam (CR Pelvis 1 or 2 Views) fall, left hip pain Report LEFT FEMUR PELVIS CLINICAL INDICATION: Pain left leg pain s/p fall AP and lateral plain film views of the left femur were obtained. AP radiograph the pelvis. COMPARISON: None FINDINGS: There is an acute transcervical fracture of the left femoral neck with mild anterior angulation of the fracture apex. No other acute fractures of the left femur or pelvis are identified. IMPRESSION: Acute left fem oral neck fracture. Report Dictated on --- Final --- Dictated: 05/30/2022 10:24 am Dictating Physician: MD IGLESIAS THOMAS Signed Date and Time: 05/30/2022 10:28 am Signed by: MD IGLESIAS THOMAS Transcribed Date and Time: 05/30/2022 10:24 Patient Active Problem List Diagnosis Fall at home, initial encounter Closed displaced fracture of left femoral neck (HCC) Closed fracture of left olecranon process Syncope Acute traumatic pain At risk for delirium Polypharmacy Palliative care encounter Goals of care, counseling/discussion Acute encephalopathy Vitamin D deficiency ASSESSMENT: 71y F S/P fall with Left femoral neck fx and left olecranon fx PLAN: Neuro/Spine: - Pain: Scheduled tylenol, robaxin held, prn oxy, dilaudid dc. - Hx fibromyalgia: home Lyrica - Hx bipolar/depression - Home meds: buspirone, risperidone, Effexor, trazodone, carbamazepine - Melatonin nightly - Palliative/Geriatrics consult - CT head X 2 negative - Delirium protocol HEENT: - No concerns Cardiovascular: - Hx of syncope/orthostasis - Home meds: florinef, midodrine - Orthostatic vitals pending - ECHO 01/04: EF 65% - Hx HLD: home Pravachol Pulmonary: - IS, cough and deep breathe - O2 NC @ 3L night time use FEN/GI: - Regular diet - LR@ 75ml/hour dc. - Bowel regimen - Nausea: Reglan dc, prn zofran - Hx GERD: home protonix : - CrCl: 75 Heme: - Hgb: 9.6, monitor ID: - No concerns Endo: - Home synthroid Lines/Devices: - PIV - Kaiser removed 06/03 Prophylaxis: DVT: None DVT: negative Has DVT PPX been started? Lovenox If no, why? GI: protonix Pressure Ulcer: None, turn q 2 hours Musculoskeletal: - Left olecranon fx - left olecranon fx ORIF 06/01 - Left femoral neck fx - left femoral endoprosthetic replacement 05/31 - Left foot 5th digit fracture; post op shoe WB Status: RUE:AT LUE: NWB RLE: AT LLE: WBAT Is the patient in restraints?: no Medications Reconciled- Yes [x] NO [], why Disposition: Continue H6 care, pain control, post op BMP/CBC, kaiser removed today void trial, continue delirium protocol, geriatrics/palliative, PT/OT, dispo planning Associated attestation - Cayla Madrigal MD - 06/03/2022 6:05 PM EDT ATTENDING ADDENDUM Active Diagnoses/Problems this Admission: Hospital Problems Last Modified POA Fall at home, initial encounter 05/30/2022 Yes Closed displaced fracture of left femoral neck (HCC) 05/30/2022 Yes Closed fracture of left olecranon process 05/30/2022 Yes Syncope 05/30/2022 Yes Acute traumatic pain 05/30/2022 Yes At risk for delirium 05/31/2022 Yes Polypharmacy 05/31/2022 Yes Palliative care encounter 05/31/2022 Yes Goals of care, counseling/discussion 05/31/2022 Yes Acute encephalopathy 06/01/2022 Yes Vitamin D deficiency 06/02/2022 Yes I personally supervised the FREDERICK/ANALISA in the evaluation and development of a treatment plan for this patient on the same day of service as above. I personally discussed the review of systems and interviewed the patient along with performing a physical examination. I reviewed the recent events, imaging, labs, vital signs. In addition, I discussed the patient's condition and treatment options with him/her when possible. I have also reviewed and agree with the past medical, family, and social history unless otherwise noted. All of the patient's questions were answered and family updated when appropriate and possible. A complete review of systems was obtained and is negative except as stated in HPI and/or SubjectiveSection. POD#3 s/p ORIF L femur, POD#2 s/p ORIF L olecranon. No further episodes of delirium. Patient is doing well and reports pain in her left hip and arm, however the medications help. Ortho signed off. OTrecommending SNF. Vascular studies today did not demonstrate DVT. Continue PT/OT and discharge planning. Greater than 51% of the >= 25 minute total care time throughout the day (including chart review,care coordination, and [id number] encounter) was spent discussing/counseling the patient/family regarding the care plan for Andre Blanca. I examined the patient independently and reviewed relevant data myself and may have done so in the context of team rounds. A full chart review was performed. Cayla Madrigal MD Division of Trauma Department of Surgery [facility] Pager: [phone] * Familia Esparza MD - 06/03/2022 6:50 AM EDT Department of Orthopedic Surgery Progress Note SUBJECTIVE: Confused this morning but still able to follow commands. In some pain OBJECTIVE: General: in no acute distress VITALS: BP (!) 119/49 Pulse 85 Temp 99 F (37.2 C) (Temporal) Resp 18 Ht 5' 7" (1.702 m) Wt 195 lb (88.5 kg) SpO2 95% BMI 30.54 kg/m MSK exam: LLE: Dressing/Incision: clean, dry, and intact SILT s/s/sp/dp/t n. +motor DF/PF/EHL Palp DP pulse LUE: Splint to LUE c/d/I SILT median/ulnar/radial n. BCR to all digits +motor AIN/PIN/ulnar n. Labs: CBC: Lab Results Component Value Date/Time WBC 12.2 06/01/2022 01:41 AM RBC 3.55 06/01/2022 01:41 AM HGB 9.6 06/01/2022 01:41 AM HCT 30.0 06/01/2022 01:41 AM MCV 84.4 06/01/2022 01:41 AM MCH 27.0 06/01/2022 01:41 AM MCHC 32.0 06/01/2022 01:41 AM RDW 15.4 06/01/2022 01:41 AM PLT 256 06/01/2022 01:41 AM MPV 8.1 06/01/2022 01:41 AM BMP: Lab Results Component Value Date/Time NA 137 06/01/2022 01:41 AM K 4.1 06/01/2022 01:41 AM CL 102 06/01/2022 01:41 AM CO2 31 06/01/2022 01:41 AM BUN 14 06/01/2022 01:41 AM CREATININE 0.78 06/01/2022 01:41 AM CALCIUM 8.7 06/01/2022 01:41 AM GLUCOSE 155 06/01/2022 01:41 AM Type and Screen: Lab Results Component Value Date/Time LABABO O 05/30/2022 09:41 AM RH POS 05/30/2022 09:41 AM LABANTI NEG 05/30/2022 09:41 AM INR: Lab Results Component Value Date/Time INR 1.0 05/30/2022 09:38 AM CRP: No results found for: CRP ESR: No results found for: SEDRATE ASSESSMENT AND PLAN: This is a 71 y.o. female with L FNFx s/p L blanca 05/31, left olecranon fx ORIF 06/01 -NWB LUE, splinted, keep c/d/I -WBAT LLE -PT/OT -Posterior hip precautions -Hip Dressing: Okay to remove dressing POD#2, if dry leave open to air, if saturated replace PRN -DVT, medical, and pain management per 1 -F/u with Dr. Jacobsen in 2 weeks -d/c instructions in chart -Ortho signing off, please call with questions * Shweta Carson APRN - JOSÉ - 06/02/2022 3:49 PM EDT Images from the original note were not included. [facility] Geriatric Medicine Inpatient Consult Service Admission Date: 05/30/2022 Admission Status: INPATIENT Chief Complaint: fall Reason for Appointment Geriatrics consulted for Trauma due to Fall Assessment Active Problems: Fall at home, initial encounter Closed displaced fracture of left femoral neck (HCC) Closed fracture of left olecranon process Syncope Acute traumatic pain At risk for delirium Polypharmacy Palliative care encounter Goals of care, counseling/discussion Acute encephalopathy Resolved Problems: * No resolved hospital problems. * Plan Acute encephalopathy - waxing/waning- noted to be hypoactive at time of my visit- concern for oversedation- had recentlyreceived afternoon dose of methocarbamol before time of my visit- will hold methocarbamol at this time, monitor for improvement of mental status - multifactorial: pain, sedating medications, post operative status \\ - assess and treat for pain first if agitation presents - if treating pain is unsuccessful and patient remains agitated and a harm to self, others or care-may consider use of PRN Seroquel 12.5mg - Qtc 455 - monitor for urinary retention/constipation- last BM 06/01, attempt void trial as able to work towards d/c of kaiser - promote sleep/wake cycle- continue nightly melatonin - Avoid sedating/anticholinergic medications, encourage sleep hygiene, encourage family visits, optimize sensory input and access to assistive devices where indicated, encourage time up in chair as able and D/c Kaiser, restraints, IV lines, as able Fall Vitamin D deficiency - unwitnessed fall at facility - patient does have history of syncopal falls from her most recent hospitalization from 12/2021- wasstarted on midodrine and florinef at that time - may consider increasing florinef to 0.1mg BID- watching for HTN - EKG, Echo done during last hospitalization - recommend recheck of orthostatic vital signs as able - Vit D low at 18- in setting of fall, high dose supplementation started, continue once weekly for 8-10 weeks as outpatient - medications with increased risk for fall: carbamazepine, metoclopramide, pregabalin, risperidone - PT/OT as able - Recommend follow up with osteoporosis clinic as outpatient Acute traumatic pain -L femoral neck fracture and L olecranon fracture, s/p L blanca 05/31, per ortho note plan for returnto OR today for L olecranon fracture - continue scheduled tylenol, holding robaxin at this time as above, low dose oxycodone and hydromorphone- continue to use lowest possible effective dose and ongoing assessment for adequate pain control vs oversedation -continue oxycodone rather than tramadol for pain as tramadol can lower the seizure threshold - monitor for constipation with opioid use- last BM yesterday- agree with current schedule bowel regimen Polypharmacy - on multiple medications with increased risk for fall/confusion in this older adult - agree with med changes made to reflect prior to admission dosing - recommend changing metoclopramide as PO as able Follow-up: 1-2 days as needed Subjective: HPI 71 y.o. year-old female presented from facility ([facility]) for fall. Per review of H&P : unwitnessed fall at [facility], patient reportedly blacked out and woke up on the floor, takes Plavix. CT head was negative for ICH, XR L elbow with "mildy displaced and mildy comminuted acute olecranonfracture" and XR L femur with "acute left femoral neck fracture" Ortho surgery consulted: plan for OR for ORIF L olecranon and L hip blanca arthroplasty today. NPO prior to OR. Patient is known to geriatric inpatient service- recent hospitalization from 01/04-01/07 for syncopalfall. MMSE Score at that time was within normal range with score of 26/30. Recommendations were made for polypharmacy that may have contributed to fall risk. Midodrine and Florinef were added and d/c'ed back to facility. Interval History : remains on H6 Per nursing no reported overnight events Patient noted to be drowsy at time of visit, limited participation with exam PT eval pending, OT recommending SNF Review of Systems Unable to perform ROS: Mental status change Objective: BP 138/74 Pulse (!) 105 Temp 97.7 F (36.5 C) (Temporal) Resp 16 Ht 5' 7" (1.702 m) Wt 195lb (88.5 kg) SpO2 (!) 75% BMI 30.54 kg/m Intake/Output Summary (Last 24 hours) at 06/02/2022 1549 Last data filed at 06/01/2022 1826 Gross per 24 hour Intake 500 ml Output -- Net 500 ml Patient Vitals for the past 96 hrs (Last 3 readings): Weight 05/30/22 1022 195 lb (88.5 kg) Physical Exam Constitutional: General: She is not in acute distress. Comments: Lying in bed sleeping, awakens to verbal stimuli, but easily falls back asleep throughoutvisit HENT: Mouth/Throat: Mouth: Mucous membranes are moist. Pharynx: Oropharynx is clear. Eyes: General: Right eye: No discharge. Left eye: No discharge. Conjunctiva/sclera: Conjunctivae normal. Comments: Glasses Cardiovascular: Rate and Rhythm: Normal rate and regular rhythm. Heart sounds: Normal heart sounds. Pulmonary: Effort: Pulmonary effort is normal. No respiratory distress. Breath sounds: Normal breath sounds. No wheezing, rhonchi or rales. Comments: Anterior only auscultated Abdominal: General: Bowel sounds are normal. Palpations: Abdomen is soft. Musculoskeletal: Comments: LUE splint in place Neurological: Mental Status: She is alert. She is disoriented. Comments: Drowsy, confused Psychiatric: Attention and Perception: She is inattentive. Behavior: Behavior is not agitated or aggressive. Labs and Imaging: No results found for this or any previous visit (from the past 24 hour(s)). No results found for: TSH No components found for: B12 Lab Results Component Value Date VITD25 18 (L) 06/01/2022 Reviewed: active problem list, medication list, allergies, family history, notes from last encounter, lab results, imaging at 3:49 PM * Kim Lozano PT - 06/02/2022 11:52 AM EDT Physical Therapy At 1000, pt working with OT, at 1115 and 1152, pt continues to be out of room (at vascular). Will reattempt as schedule allows in PM * Lourdes Portillo OT - 06/02/2022 10:29 AM EDT Occupational Therapy Facility/Department: [facility] Occupational Therapy Initial Assessment Name: Andre Blanca : 1950 Date of Service: 06/02/2022 Discharge Recommendations: Subacute/Custodial Facility This provider wore a mask and gloves during the treatment session. Patient Diagnosis(es): The primary encounter diagnosis was Closed displaced fracture of left femoral neck (HCC). Diagnoses of Syncope and collapse, Acute pain of left shoulder, and Left hip pain werealso pertinent to this visit. Past Medical History: has a past medical history of Bipolar 1 disorder (HCC), Cerebral artery occlusion, COPD (chronic obstructive pulmonary disease) (HCC), Depression, DVT (deep venous thrombosis) (HCC), Fibromyalgia, Hyperlipidemia, Hypothyroid, IBS (irritable bowel syndrome), MDD (major depressive disorder), RAULITO (obstructive sleep apnea), Syncope, and TIA (transient ischemic attack). Past Surgical History: has a past surgical history that includes Arm Surgery (N/A); Cholecystectomy; Hysterectomy; other surgical history (05/31/2022); and other surgical history (Left, 06/01/2022). Assessment Performance deficits / Impairments: Decreased functional mobility ;Decreased safe awareness;Decreased balance;Decreased ADL status;Decreased cognition;Decreased posture;Decreased ROM;Decreased endurance;Decreased high- level IADLs;Decreased strength Assessment: OT eval completed, pt presents with performance deficits listed above. Pt admitted withleft FNFx s/p L blanca 05/31, left olecranon fx ORIF 06/01; currently below baseline for ADLs and functional mobility. Pt reporting bandage on left hip was itching; cues to keep nasal cannula in place as pt repeatedly trying to remove it during sesssion. Pt requiring increased assistance with ADLs and transfers at this time, required max cues for safety throughout session and for redirection to task. At this time pt would benefit from continued therapy to return to baseline function. Recommend SNF. Prognosis: Fair Decision Making: Medium Complexity REQUIRES OT FOLLOW-UP: Yes Activity Tolerance Activity Tolerance: Patient Tolerated treatment well Plan Occupational Therapy Plan Times Per Week: 3-5 Therapy Duration: 4 Weeks Current Treatment Recommendations: Strengthening, Balance training, Functional mobility training, Endurance training, Safety education & training, Pain management, Patient/Caregiver education & training, Equipment evaluation, education, & procurement, Self-Care / ADL, Cognitive/Perceptual training Restrictions Restrictions/Precautions Restrictions/Precautions: Fall Risk, Bed Alarm, Weight Bearing Required Braces or Orthoses?: (post-op shoe for comfort) Lower Extremity Weight Bearing Restrictions Left Lower Extremity Weight Bearing: Weight Bearing As Tolerated Upper Extremity Weight Bearing Restrictions Left Upper Extremity Weight Bearing: Non Weight Bearing Position Activity Restriction Hip Precautions: Posterior hip precautions Other position/activity restrictions: OK finger ROM Subjective General Chart Reviewed: Yes Patient assessed for rehabilitation services?: Yes Family / Caregiver Present: No Diagnosis: left FNFx s/p L blanca 05/31, left olecranon fx ORIF 06/01 Subjective Subjective: pt supine in bed upon entry, agreeable to therapy Social/Functional History Social/Functional History Lives With: Alone Type of Home: Facility Home Layout: One level Bathroom Shower/Tub: Walk-in shower Bathroom Toilet: Handicap height Home Equipment: Rollator Has the patient had two or more falls in the past year or any fall with injury in the past year?: Yes ADL Assistance: Independent Homemaking Assistance: Needs assistance Homemaking Responsibilities: No Ambulation Assistance: Independent (with rollator) Transfer Assistance: Independent Active Entry Level Finance: No Additional Comments: pt questionable historian Objective Observation/Palpation Posture: Fair Observation: left UE splint, left hip with bandaging Safety Devices Type of Devices: Gait belt;Left in bed (pt leaving with transport at end of session) Restraints Restraints Initially in Place: No AROM: (left UE in splint, digits WFL) Strength: (LUE NWB) Tone: Normal ADL LE Dressing: Dependent/Total Additional Comments: through functional assessment anticipate pt dependent for LE dressing/bathing,mod A for UE dressing/bathing, min A for grooming and set-up for feeding Bed mobility Supine to Sit: Moderate assistance Sit to Supine: Moderate assistance Scooting: Dependent/Total (supine towards HOB) Bed Mobility Comments: max cues for safety Transfers Sit to stand: Dependent/Total Transfer Comments: multiple attempts for sit<>stand, cues for hand placement of RUE and to maintain NWB LUE with therapist infront of pt. dependent assist with pt unable to come into full stand. attempted with bed level slightly elevated however pt continuously scooting towards EOB while sitting and required max cues for safety and to remain sitting EOB. Vision Vision: Within Functional Limits Hearing Hearing: Within functional limits Cognition Overall Cognitive Status: Exceptions Arousal/Alertness: Appropriate responses to stimuli Following Commands: Follows one step commands with repetition Attention Span: Attends with cues to redirect Memory: Decreased recall of recent events;Decreased recall of precautions Safety Judgement: Decreased awareness of need for safety;Decreased awareness of need for assistance Problem Solving: Assistance required to identify errors made;Assistance required to correct errors made;Decreased awareness of errors Insights: Not aware of deficits Initiation: Requires cues for all Sequencing: Requires cues for all Orientation Orientation Level: Oriented to person;Disoriented to situation;Disoriented to time;Disoriented to place Education Given To: Patient Education Provided: Role of Therapy;Plan of Care;Precautions;Orientation;Transfer Training;Fall Prevention Strategies Education Method: Verbal Barriers to Learning: Cognition Education Outcome: Continued education needed LUE AROM (degrees) LUE General AROM: splinted; AROM digits WFL RUE AROM (degrees) RUE AROM : WFL G-Code OutComes Score AM-[facility] Daily Activity Inpatient How much help for putting on and taking off regular lower body clothing?: Total How much help for Bathing?: Total How much help for Toileting?: Total How much help for putting on and taking off regular upper body clothing?: A Lot How much help for taking care of personal grooming?: A Little How much help for eating meals?: None AM-[facility] Inpatient Daily Activity Raw Score: 12 AM-[facility] Inpatient ADL T-Scale Score : 30.6 ADL Inpatient CMS 0-100% Score: 66.57 ADL Inpatient CMS G-Code Modifier : CL Tinneti Score Goals Short Term Goals Time Frame for Short Term Goals: 4 weeks Short Term Goal 1: Answer orientation questions with 100% accuracy using visual cues as needed Short Term Goal 2: Maintain NWB LUE during ADLs and transfers with no more than 1 cue Short Term Goal 3: Toileting, including transfer, mod A Short Term Goal 4: Sequence through simple ADL with supervision for safety Short Term Goal 5: Grooming task sitting EOB, supervision Patient Goals Patient goals : none stated Therapy Time Individual Concurrent Group Co-treatment Time In 1002 Time Out 1029 Minutes 27 Timed Code Treatment Minutes: 8 Minutes (funct act:1) Patient's Occupational Therapy Plan of [facility]. Goals and/or treatment plan was established in collaboration with patient/family/other representatives. Lourdes Portillo OTR/L * Jeannine Card PA-C - 06/02/2022 7:03 AM EDT Images from the original note were not included. Daily Trauma Progress Note JORGE ALBERTO 06/02/2022 7:03 AM Admit Date: 05/30/2022 Post Trauma Day 3 Fall SH HISTORY OF TRAUMATIC EVENT: 71 y.o. female status post unwitnessed fall at her ECF. The incident happened at an unknown time. When the event happened the patient states she blacked out and woke up onthe floor of her room. She started to scream and cry when she awoke and states another resident called for help. P INJURIES: Left femoral neck fx Left olecranon fx PROCEDURES: - left femoral endoprosthetic replacement 05/31 - ORIFof left olecranon fracture 06/01 INCIDENTAL FINDINGS: None CHIEF COMPLAINT: Left arm pain PREVIOUS 24 HOUR EVENTS: - ORIF of left elbow with ortho yesterday Consults: IP CONSULT TO ORTHOPEDIC SURGERY IP CONSULT TO GERIATRICS IP CONSULT TO PALLIATIVE CARE MEDICATIONS: Current Facility-Administered Medications Medication Dose Route Frequency Provider Last Rate Last Admin enoxaparin Sodium (LOVENOX) injection 30 mg 30 mg SubCUTAneous BID Earl Richardson PA-C 30 mg at 06/01/222038 lactated ringers infusion IntraVENous Continuous Nano Champion APRN - JOSÉ methocarbamol (ROBAXIN) tablet 500 mg 500 mg Oral TID Earl Richardson PA-C 500 mg at 06/01/222038 lactated ringers infusion IntraVENous Continuous Earl Richardson PA-C 75 mL/hr at 05/31/22 0641 New Bag at 05/31/22 0641 HYDROmorphone (DILAUDID) injection 0.5 mg 0.5 mg IntraVENous Q3H PRN Earl Richardson PA-C Or HYDROmorphone (DILAUDID) injection 1 mg 1 mg IntraVENous Q3H PRN Earl Richardson PA-C 1 mg at 06/01/22 0505 carBAMazepine (TEGRETOL) tablet 200 mg 200 mg Oral TID Earl Richardson PA-C 200 mg at 06/01/22 2040 venlafaxine (EFFEXOR XR) extended release capsule 37.5 mg 37.5 mg Oral Daily Earl Richardson PA-C 37.5 mg at 06/01/22 1504 albuterol (PROVENTIL) nebulizer solution 1.25 mg 1.25 mg Nebulization Q6H PRN Earl Richardson PA-C metoclopramide (REGLAN) injection 5 mg 5 mg IntraVENous BID Earl Richardson PA-C 5 mg at 06/01/222039 naloxone (NARCAN) injection 0.4 mg 0.4 mg IntraVENous PRN Earl Richardson PA-C oxyCODONE (ROXICODONE) immediate release tablet 2.5 mg 2.5 mg Oral Q4H PRN Earl Richardson PA-C Or oxyCODONE (ROXICODONE) immediate release tablet 5 mg 5 mg Oral Q4H PRN Earl Richardson PA-C 5 mg at 06/02/22 0321 sodium chloride flush 0.9 % injection 5-40 mL 5-40 mL IntraVENous 2 times per day Earl Richardson PA-C 10 mL at 06/01/222055 sodium chloride flush 0.9 % injection 5-40 mL 5-40 mL IntraVENous PRN Earl Richardson PA-C 0.9 % sodium chloride infusion IntraVENous PRN Earl Richardson PA-C ondansetron (ZOFRAN-ODT) disintegrating tablet 4 mg 4 mg Oral Q8H PRN Earl Richardson PA-C Or ondansetron (ZOFRAN) injection 4 mg 4 mg IntraVENous Q6H PRN Earl Richardson PA-C 4 mg at 05/30/22 1127 polyethylene glycol (GLYCOLAX) packet 17 g 17 g Oral Daily Earl Richardson PA-C 17 g at 06/01/22 1500 acetaminophen (TYLENOL) tablet 1,000 mg 1,000 mg Oral 3 times per day Earl Richardson PA-C 1,000 mg at 06/02/22 0624 senna (SENOKOT) tablet 8.6 mg 1 tablet Oral Daily PRN Earl Richardson PA-C bisacodyl (DULCOLAX) EC tablet 5 mg 5 mg Oral Daily Earl Richardson PA-C 5 mg at 05/30/222108 busPIRone (BUSPAR) tablet 10 mg 10 mg Oral TID Earl Richardson PA-C 10 mg at 10/19/22 2039 fludrocortisone (FLORINEF) tablet 0.1 mg 0.1 mg Oral Daily Earl Dylan, PA-C 0.1 mg at 06/01/22 1505 levothyroxine (SYNTHROID) tablet 150 mcg 150 mcg Oral Daily Earl Dylan, PA-C 150 mcg at melatonin tablet 5 mg 5 mg Oral Daily Earl Dylan, PA-C 5 mg at 06/01/222038 midodrine (PROAMATINE) tablet 5 mg 5 mg Oral TID Earl Dylan, PA-C 5 mg at 06/01/222039 pantoprazole (PROTONIX) tablet 40 mg 40 mg Oral BID Earl Dylan, PA-C 40 mg at 06/01/222038 pravastatin (PRAVACHOL) tablet 40 mg 40 mg Oral Daily Earl Dylan, PA-C 40 mg at 06/01/221499 pregabalin (LYRICA) capsule 150 mg 150 mg Oral BID Earl Dylan, PA-C 150 mg at 06/01/222039 risperiDONE (RISPERDAL) tablet 0.5 mg 0.5 mg Oral BID Earl Dylan, PA-C 0.5 mg at 06/01/222039 traZODone (DESYREL) tablet 50 mg 50 mg Oral Nightly Earl Dylan, PA-C 50 mg at 06/01/222038 ARE THERE PERTINENT UPDATES TO PAST,FAMILY, OR SOCIAL HISTORY?: No Subjective: Patient feeling well. States her pain is under control. She is no longer anxious or feeling "loopy"like yesterday. She is a and o x3. Calm and cooperative on exam. No further evidence of delirium orhallucinations. Patient did have some anxiety over night and was only able to get a few hours of sleep. But overall states she is feeling close to baseline. Review of Systems Constitutional: Positive for activity change. HENT: Negative. Respiratory: Negative. Cardiovascular: Negative. Gastrointestinal: Negative. Genitourinary: Negative. Musculoskeletal: Positive for arthralgias, gait problem, joint swelling and myalgias. Skin: Negative. Neurological: Positive for syncope. Negative for dizziness. Psychiatric/Behavioral: Negative. All other systems reviewed and are negative. PHQ In the last 2 weeks have you had: Little interest or pleasure in doing things No Been feeling down, depressed, or hopeless No If greater then 0, place CLP consult Date PHQ completed: 05/31/2022 Objective: Patient Vitals for the past 24 hrs: BP Temp Temp src Pulse Resp SpO2 06/02/22 0539 (!) 130/55 97.2 F (36.2 C) Temporal 82 18 96 % 06/01/22 1259 126/74 96.9 F (36.1 C) Temporal 89 14 92 % 06/01/22 1230 118/74 -- -- 89 19 93 % 06/01/22 1215 118/76 -- -- 90 14 95 % 06/01/22 1200 108/65 -- -- 90 20 95 % 06/01/22 1147 (!) 109/54 97.6 F (36.4 C) Temporal 90 16 95 % 06/01/22 0935 133/66 97.1 F (36.2 C) Temporal 100 16 95 % Last BM: 06/01 Diet: regular PHYSICAL: Physical Exam Vitals and nursing note reviewed. Constitutional: General: She is not in acute distress. Appearance: Normal appearance. She is not ill-appearing. HENT: Head: Normocephalic. Nose: Nose normal. Mouth/Throat: Mouth: Mucous membranes are dry. Eyes: Extraocular Movements: Extraocular movements intact. Pupils: Pupils are equal, round, and reactive to light. Cardiovascular: Rate and Rhythm: Normal rate. Pulses: Normal pulses. Pulmonary: Effort: Pulmonary effort is normal. Breath sounds: Normal breath sounds. Abdominal: General: Abdomen is flat. There is no distension. Palpations: Abdomen is soft. Genitourinary: Comments: Kaiser in place Musculoskeletal: General: Swelling, tenderness and signs of injury present. Cervical back: Normal range of motion and neck supple. No rigidity or tenderness. Comments: L hip TTP. Incision c/d/I Foot: Left fifth digit with some swelling and ecchymosis. Minimal TTP. DP intact bilaterally. Left arm splinted, MSPs intact Skin: General: Skin is warm and dry. Capillary Refill: Capillary refill takes less than 2 seconds. Findings: No bruising. Neurological: General: No focal deficit present. Mental Status: She is alert and oriented to person, place, and time. Psychiatric: Mood and Affect: Mood normal. Sutures or cielo? No O2: None / / / Data Review Data CBC with Differential: Lab Results Component Value Date/Time WBC 12.2 06/01/2022 01:41 AM RBC 3.55 06/01/2022 01:41 AM HGB 9.6 06/01/2022 01:41 AM HCT 30.0 06/01/2022 01:41 AM PLT 256 06/01/2022 01:41 AM CMP: Lab Results Component Value Date/Time NA 137 06/01/2022 01:41 AM K 4.1 06/01/2022 01:41 AM CL 102 06/01/2022 01:41 AM CO2 31 06/01/2022 01:41 AM BUN 14 06/01/2022 01:41 AM CREATININE 0.78 06/01/2022 01:41 AM GLUCOSE 155 06/01/2022 01:41 AM CALCIUM 8.7 06/01/2022 01:41 AM BMP: Hepatic Function Panel:Ionized Calcium: No results found for: IONCA Magnesium: No results found for: MG Phosphorus: No results found for: PHOS PT/INR: Lab Results Component Value Date/Time PROTIME 10.7 05/30/2022 09:38 AM INR 1.0 05/30/2022 09:38 AM PTT: Lab Results Component Value Date/Time APTT 27.1 05/30/2022 09:38 AM [APTT Last 3 Troponin: Lab Results Component Value Date/Time TROPONINI <0.012 05/30/2022 09:38 AM Urine Culture: No components found for: CURINE Blood Culture: No components found for: CBLOOD, CFUNGUSBL Blood Culture from Central Line: No components found for: CBLOODLN Stool Culture: No components found for: CSTOOL Sputum Culture: No components found for: CSPUTUM Sputum Culture for AFB: No components found for: CAFBSM Wound Culture: NA Radiology: XR ELBOW LEFT (MIN 3 VIEWS) Result Date: 05/30/2022 Patient Name: ANDRE BLANCA Diagnostic Radiology ACCESSION EXAMDATE/TIME PROCEDURE ORDERING PROVIDER [id number] 05/30/2022 10:17 EDT CR Elbow 3+ Views Left [id number] -MARGARET CUEVAS CPT code 78337 Reason For Exam (CR Elbow 3+ Views Left) left elbow pain s/p fall Report LEFT ELBOW CLINICAL INDICATION: Pain after trauma left elbow pain s/p fall AP, lateral, andoblique plain film views of the left elbow were obtained. COMPARISON: None FINDINGS: There is an acute, mildly comminuted olecranon fracture of the humerus with mild proximal retraction of the major olecranon fracture fragment. Radiocapitellar alignment is maintained. Soft tissue swelling is present overlying the fracture. No fracture of the distal humerus or proximal radius is identified. IMPRESSION: Mildly displaced and mildly comminuted acute olecranon fracture. Report Dictated on --- Final --- Dictated: 05/30/2022 10:22 am Dictating Physician: MD IGLESIAS THOMAS Signed Date and Time: 05/30/2022 10:24 am Signed by: MD IGLESIAS THOMAS Transcribed Date and Time: 05/30/2022 10:22 XR FEMUR LEFT (MIN 2 VIEWS) Result Date: 05/30/2022 [id number] ACCESSION EXAMDATE/TIME PROCEDURE ORDERING PROVIDER [id number] 05/30/2022 10:17 EDT CR Femur 2+ Views Left n [id number] -MARGARET CUEVAS CPT code 40961 Reason For Exam (CR Femur 2+ Views Left n) left leg pain s/p fall Report LEFT FEMUR PELVIS CLINICAL INDICATION: Pain left leg pain s/p fall AP and lateral plain film views of the left femur were obtained. AP radiograph the pelvis. COMPARISON: None FINDINGS: There is an acute transcervical fracture of the left femoral neck with mild anterior angulation of the fracture apex. No other acute fractures of the left femur or pelvis are identified. IMPRESSION: Acuteleft femoral neck fracture. Report Dictated on --- Final --- Dictated: 05/30/2022 10:24 am Dictating Physician: MD IGLESIAS THOMAS Signed Date and Time: 05/30/2022 10:28 am Signed by: MD IGLESIAS THOMAS Transcribed Date and Time: 05/30/2022 10:24 CT head without contrast Result Date: 05/30/2022 Patient Name: ANDRE BLANCA Computed Tomography ACCESSION EXAM DATE/TIME PROCEDURE ORDERING PROVIDER [id number] 05/30/2022 16:[address] Head or Brain w/o [id number] MOON Contrast CPT code 00604 Reason For Exam (CT Head or Brain w/o Contrast) fall on plavix Report CT BRAIN WITHOUT CONTRAST CLINICAL INDICATION: fall on plavix TECHNIQUE: CT scan of the brain without IV contrast. Multiplanar reformations. COMPARISON: Earlier on same date at 0945 hours. FINDINGS: No apparent mass or mass effect, hemorrhage, midline shift or hydrocephalus. No evidence of acute cortical infarct. No abnormal, extra-axial fluid or air collection. Patchy low density in the periventricular and subcortical white matter is nonspecific, but may relate to chronic small vessel ischemic change. Probable old lacunar infarct changes again noted in and left caudate nucleus head. Mild, diffuse volume loss. Osseous calvarium grossly intact. IMPRESSION: 1. No acute intracranial findings. 2. Probable chronic ischemic and atrophic changes. Report Dictated on --- Final --- Dictated: 05/30/2022 5:06 pm Dictating Physician: MD OCHOA WENDELL SignedDate and Time: 05/30/2022 5:10 pm Signed by: MD OCHOA WENDELL Transcribed Date and Time: 05/30/2022 5:06 CT HEAD WO CONTRAST Result Date: 05/30/2022 Patient Name: ANDRE BLANCA Computed Tomography ACCESSION EXAM DATE/TIME PROCEDURE ORDERING PROVIDER [id number] 05/30/2022 09:[address] Head or Brain w/o [id number]-FSTYEPVKI, CAYLA Contrast CPT code 87352 Reason For Exam (CT Head or Brain w/o Contrast) trauma Report CT HEAD WITHOUT CONTRAST: INDICATION: Cough COMPARISON: None. Unenhanced CT images of the head from skull base to vertex were obtained. The images are reviewed in the axial, sagittal and coronal planes. The ventricles and sulci are enlarged, consistent with atrophy. Focal and confluent areas oflow-attenuation are noted within the subcortical and periventricular white matter suggesting chronic ischemia. There is no evidence of hemorrhage, mass or large acute infarct. A remote lacunar infarct is seen on the left near the caudate nucleus head. Additional focal areas of low-attenuation are seen involving the dionisio. There is no mass or significant shift of the midline structures. There are no extraaxial or posterior fossa masses or fluid collections. The hypothalamic and parasellar regionsare unremarkable. There is mild mucosal thickening of the right maxillary sinus. IMPRESSION: No acute intracranial process. Multifocal remote infarcts.. Report Dictated on --- Final --- Dictated: 05/30/2022 10:49 am Dictating Physician: DO MCGUIRE ALFRED Signed Dateand Time: 05/30/2022 10:56 am Signed by: DO MCGUIRE ALFRED Transcribed Date and Time: 05/30/2022 10:49 CT CERVICAL SPINE WO CONTRAST Result Date: 05/30/2022 Patient Name: ANDRE BLANCA Computed Tomography ACCESSION EXAM DATE/TIME PROCEDURE ORDERING PROVIDER [id number] 05/30/2022 09:[address] Spine Cervical w/o [id number] -CAYLA MADRIGAL Contrast CPT code 17890 Reason For Exam (CT Spine Cervical w/o Contrast) trauma Report CT CERVICAL SPINE WITHOUT CONTRAST: INDICATION: Neck pain after trauma COMPARISON: None. Axial scans of the cervical spine performed from the skull base to the thoracic inlet, with sagittal andcoronal reconstructions. On the sagittal reconstruction images, the anatomic alignment of the vertebral bodies is normal. There is no evidence of fracture or subluxation in the cervical spine. Disc sp jerardo narrowing and marginal spurring is noted at C6-C7 with mild bilateral foraminal encroachment. The prevertebral soft-tissues are normal. The craniocervical junction and C1-2 junction appear normal. The odontoid is intact. IMPRESSION: Arthritic changes. No acute process. Report Dictated on Worksta tion: [id number] --- Final --- Dictated: 05/30/2022 10:58 am Dictating Physician: DO MCGUIRE ALFRED Signed Date and Time: 05/30/2022 11:00 am Signed by: DO MCGUIRE ALFRED Transcribed Date and Time: 05/30/2022 10:58 XR Tibia Fibula Bilateral Result Date: 05/30/2022 Patient Name: ANDRE BLANCA Diagnostic Radiology ACCESSION EXAMDATE/TIME PROCEDURE ORDERING PROVIDER [id number] 05/30/2022 19:27 EDT CR Tibia/Fibula 2 Views MD FARAZ, ERLINDA Bilateral CPT code 43143 Reason For Exam (CR Tibia/Fibula 2 Views Bilateral) Bilateral leg pain Report EXAMINATION: Bilateral tibia and fibula CLINICAL INDICATION: Bilateral leg pain TECHNIQUE: AP and lateral radiographs of the bilateral tibia/fibula COMPARISON: None FINDINGS: No fracture or dislocation. Degenerative changes are present in the bilateral knees, greater on the right.No soft tissue swelling. Report Dictated on --- Final --- Dictated: 05/30/2022 7:12 pm Dictating Physician: MD HICKS NICHOLAS Signed Date and Time: 05/30/2022 7:15 pm Signed by: MD HICKS NICHOLAS Transcribed Date and Time: 05/30/2022 7:12 XR CHEST PORTABLE Result Date: 05/30/2022 Patient Name: ANDRE BLANCA Diagnostic Radiology ACCESSION EXAMDATE/TIME PROCEDURE ORDERING PROVIDER [id number] 05/30/2022 10:36 EDT CR Chest Portable LALIT RECIO CPT code 74714 Reason For Exam (CR Chest Portable) fall, left shoulder pain Report APCHEST X- RAY CLINICAL INDICATION: fall, left shoulder pain TECHNIQUE: AP portable x-ray of the chest. COMPARISON: None FINDINGS: Heart/Mediastinum: Prominence of the superior mediastinum is most likely from rightward patient rotation. Heart size is within normal limits. Lungs: Low lung volumes. No definite airspace consolidation or pleural effusion. Bones: No displaced fractures. Degenerative endplate spurring is present throughout the mid and lower aspects of the thoracic spine. IMPRESSION: No evidence of an acute cardiopulmonary abnormality. Report Dictated on --- Final --- Dictated: 05/30/2022 10:29 am Dictating Physician: MD IGLESIAS THOMAS Signed Date and Time: 05/30/2022 10:31 am Signed by: MD IGLESIAS THOMAS Transcribed Date and Time: 05/30/2022 10:29 XR Shoulder Left 2 VW Result Date: 05/30/2022 [id number]iology ACCESSION EXAMDATE/TIME PROCEDURE ORDERING PROVIDER [id number] 05/30/2022 10:17 EDT CR Shoulder 2+ Views [id number] -MARGARET CUEVAS Left CPT code 19646 Reason For Exam (CR Shoulder 2+ Views Left) fall, left shoulder pain Report EXAMINATION: CR Shoulder 2+ Views Left CLINICAL HISTORY: fall, left shoulder pain COMPARISON: None TECHNIQUE: Grashey, axillary, and transscapular views of the left shoulder FINDINGS: The patient is status post 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 There is mild heterotopic ossification adjacent to the glenoid prosthesis. The acromioclavicular joint is intact. No left rib fractures are identified. No osseous lesions are seen. IMPRESSION: 1. No periprosthetic fracture of the left shoulder. Report Dictated on --- Final --- Dictated: 05/30/2022 10:28 am Dictating Physician: MD IGLESIAS THOMAS Signed Date and Time: 05/30/2022 10:29 am Signed by: MD IGLESIAS THOMAS Transcribed Date and Time: 05/30/2022 10:28 XR PELVIS (1-2 VW) Result Date: 05/30/2022 [id number] Radiology ACCESSION EXAMDATE/TIME PROCEDURE ORDERING PROVIDER [id number] 05/30/2022 10:36 EDT CR Pelvis 1 or 2 Views [id number] -DAXMALATHICAROLYN LALIT CPT code 54936 Reason For Exam (CR Pelvis 1 or 2 Views) fall, left hip pain Report LEFT FEMUR PELVIS CLINICAL INDICATION: Pain left leg pain s/p fall AP and lateral plain film views of the left femur were obtained. AP radiograph the pelvis. COMPARISON: None FINDINGS: There is an acute transcervical fracture of the left femoral neck with mild anterior angulation of the fracture apex. No other acute fractures of the left femur or pelvis are identified. IMPRESSION: Acute left fem oral neck fracture. Report Dictated on --- Final --- Dictated: 05/30/2022 10:24 am Dictating Physician: MD IGLESIAS THOMAS Signed Date and Time: 05/30/2022 10:28 am Signed by: MD IGLESIAS THOMAS Transcribed Date and Time: 05/30/2022 10:24 Patient Active Problem List Diagnosis Fall at home, initial encounter Closed displaced fracture of left femoral neck (HCC) Closed fracture of left olecranon process Syncope Acute traumatic pain At risk for delirium Polypharmacy Palliative care encounter Goals of care, counseling/discussion Acute encephalopathy ASSESSMENT: 71y F S/P fall with Left femoral neck fx and left olecranon fx PLAN: Neuro/Spine: - Pain: Scheduled tylenol, robaxin, prn oxy/dilaudid. - Hx fibromyalgia: home Lyrica - Hx bipolar/depression - Home meds: buspirone, risperidone, Effexor, trazodone, carbamazepine - Melatonin nightly - Palliative/Geriatrics consult - CT head X 2 negative - Delirium protocol HEENT: - No concerns Cardiovascular: - Hx of syncope/orthostasis - Home meds: florinef, midodrine - Orthostatic vitals pending - ECHO 01/04: EF 65% - Hx HLD: home Pravachol Pulmonary: - IS, cough and deep breathe FEN/GI: - Regular diet - LR@ 75ml/hour dc. - Bowel regimen - Nausea: Reglan every 6 hours, prn zofran - Hx GERD: home protonix : - CrCl: 75 Heme: - Hgb: 9.6, monitor ID: - No concerns Endo: - Home synthroid Lines/Devices: - PIV - Kaiser removed 06/02 Prophylaxis: DVT: None DVT: negative Has DVT PPX been started? Lovenox If no, why? GI: protonix Pressure Ulcer: None, turn q 2 hours Musculoskeletal: - Left olecranon fx - left olecranon fx ORIF 06/01 - Left femoral neck fx - left femoral endoprosthetic replacement 05/31 - Left foot 5th digit fracture; post op shoe WB Status: RUE:AT LUE: NWB RLE: AT LLE: WBAT Is the patient in restraints?: no Medications Reconciled- Yes [x] NO [], why Disposition: Continue H6 care, pain control, remove kaiser, void trial, continue delirium protocol, pain control, geriatrics/palliative, PT/OT, dispo planning Associated attestation - Cayla Madrigal MD - 06/02/2022 9:23 PM EDT ATTENDING ADDENDUM Active Diagnoses/Problems this Admission: Hospital Problems Last Modified POA Fall at home, initial encounter 05/30/2022 Yes Closed displaced fracture of left femoral neck (HCC) 05/30/2022 Yes Closed fracture of left olecranon process 05/30/2022 Yes Syncope 05/30/2022 Yes Acute traumatic pain 05/30/2022 Yes At risk for delirium 05/31/2022 Yes Polypharmacy 05/31/2022 Yes Palliative care encounter 05/31/2022 Yes Goals of care, counseling/discussion 05/31/2022 Yes Acute encephalopathy 06/01/2022 Yes Vitamin D deficiency 06/02/2022 Yes I personally supervised the MANAGER PROJECT/ANALISA in the evaluation and development of a treatment plan for this patient on the same day of service as above. I personally discussed the review of systems and interviewed the patient along with performing a physical examination. I reviewed the recent events, imaging, labs, vital signs. In addition, I discussed the patient's condition and treatment options with him/her when possible. I have also reviewed and agree with the past medical, family, and social history unless otherwise noted. All of the patient's questions were answered and family updated when appropriate and possible. A complete review of systems was obtained and is negative except as stated in HPI and/or SubjectiveSection. POD#2 s/p ORIF L femur, POD#1 s/p ORIF L olecranon. Doing very well. Delirium resolved. Done with surgery, f/u PT/OT recs anf encourage OOB. Greater than 51% of the >= 35 minute total care time throughout the day (including chart review,care coordination, and qdul-sy-zntd encounter) was spent discussing/counseling the patient/family regarding the care plan for Andre Blanca. I examined the patient independently and reviewed relevant data myself and may have done so in the context of team rounds. A full chart review was performed. Cayla Madrigal MD Division of Trauma Department of Surgery [facility] Pager: [phone] * Delia Barnett MD - 06/02/2022 6:51 AM EDT Department of Orthopedic Surgery Progress Note SUBJECTIVE: no issues overnight, pain controlled. A little confused this morning but able to converse OBJECTIVE: General: in no acute distress VITALS: BP (!) 130/55 Pulse 82 Temp 97.2 F (36.2 C) (Temporal) Resp 18 Ht 5' 7" (1.702 m) Wt 195 lb (88.5 kg) SpO2 96% BMI 30.54 kg/m MSK exam: LLE: Dressing/Incision: clean, dry, and intact SILT s/s/sp/dp/t n. +motor DF/PF/EHL Palp DP pulse LUE: Splint to LUE c/d/I SILT median/ulnar/radial n. BCR to all digits +motor AIN/PIN/ulnar n. Labs: CBC: Lab Results Component Value Date/Time WBC 12.2 06/01/2022 01:41 AM RBC 3.55 06/01/2022 01:41 AM HGB 9.6 06/01/2022 01:41 AM HCT 30.0 06/01/2022 01:41 AM MCV 84.4 06/01/2022 01:41 AM MCH 27.0 06/01/2022 01:41 AM MCHC 32.0 06/01/2022 01:41 AM RDW 15.4 06/01/2022 01:41 AM PLT 256 06/01/2022 01:41 AM MPV 8.1 06/01/2022 01:41 AM BMP: Lab Results Component Value Date/Time NA 137 06/01/2022 01:41 AM K 4.1 06/01/2022 01:41 AM CL 102 06/01/2022 01:41 AM CO2 31 06/01/2022 01:41 AM BUN 14 06/01/2022 01:41 AM CREATININE 0.78 06/01/2022 01:41 AM CALCIUM 8.7 06/01/2022 01:41 AM GLUCOSE 155 06/01/2022 01:41 AM Type and Screen: Lab Results Component Value Date/Time LABABO O 05/30/2022 09:41 AM RH POS 05/30/2022 09:41 AM LABANTI NEG 05/30/2022 09:41 AM INR: Lab Results Component Value Date/Time INR 1.0 05/30/2022 09:38 AM CRP: No results found for: CRP ESR: No results found for: SEDRATE ASSESSMENT AND PLAN: This is a 71 y.o. female with L FNFx s/p L blanca 05/31, left olecranon fx ORIF 06/01 -NWB LUE, splinted, keep c/d/I -WBAT LLE -Ancef x2 doses -PT/OT -Posterior hip precautions -Hip Dressing: Okay to remove dressing POD#2, if dry leave open to air, if saturated replace PRN -DVT, medical, and pain management per 1 -F/u with Dr. Jacobsen in 2 weeks -d/c instructions in chart -Please page installation 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 ortho resident with questions/concerns Delia Barnett MD Orthopaedic Surgery, PGY3 [facility] [phone] * Terri Felton - 06/01/2022 2:46 PM EDT Nutrition rescreen completed. Chart reviewed. Patient diet advanced. Monitor tolerance to diet. Patient to be monitored and followed by the diet ruling technician. Dietitian available upon request. TESSIE Smith * Bel Champion RN - 06/01/2022 12:05 PM EDT Report received from Nano DALTON * Cecy Rust OT - 06/01/2022 8:56 AM EDT Occupational Therapy Hold OT eval and treat order received. Pt S/P L hemiarthroplasty on 05/31 but pt returning to surgery today for ORIF L olecranon. Will hold OT eval until after surgery. Cecy Rust OTR/L * Shweta Carson, MANAGER PROJECT - GENERAL LABOR FORKLIFT OPERATOR - 06/01/2022 8:50 AM EDT Images from the original note were not included. [facility] Geriatric Medicine Inpatient Consult Service Admission Date: 05/30/2022 Admission Status: INPATIENT Chief Complaint: fall Reason for Appointment Geriatrics consulted for Trauma due to Fall Assessment Active Problems: Fall at home, initial encounter Closed displaced fracture of left femoral neck (HCC) Closed fracture of left olecranon process Syncope Acute traumatic pain At risk for delirium Polypharmacy Palliative care encounter Goals of care, counseling/discussion Resolved Problems: * No resolved hospital problems. * Plan Acute encephalopathy - waxing/waning- likely secondary to her recent post-op state/sedating medications - removed her IV this morning prior to my visit, inattentive during exam - high risk for worsening delirium in setting of plan for return to OR - assess and treat for pain first if agitation presents - if treating pain is unsuccessful and patient remains agitated and a harm to self, others or care-may consider use of PRN Seroquel 12.5mg - Qtc 455 - monitor for urinary retention/constipation- last BM unknown - promote sleep/wake cycle- continue nightly melatonin - Avoid sedating/anticholinergic medications, encourage sleep hygiene, encourage family visits, optimize sensory input and access to assistive devices where indicated, encourage time up in chair as able and D/c [facility], restraints, IV lines, as able Fall - unwitnessed fall at facility - patient does have history of syncopal falls from her most recent hospitalization from 12/2021- wasstarted on midodrine and florinef at that time - may consider increasing florinef to 0.1mg BID- watching for HTN - EKG, Echo done during last hospitalization - recommend recheck of orthostatic vital signs as able - Vit D pending, replace if deficient - medications with increased risk for fall: carbamazepine, metoclopramide, pregabalin, risperidone - PT/OT as able after OR - Recommend follow up with osteoporosis clinic as outpatient Acute traumatic pain -L femoral neck fracture and L olecranon fracture, s/p L blanca 05/31, per ortho note plan for returnto OR today for L olecranon fracture - continue scheduled tylenol, monitor for increased confusion with use of robaxin, low dose oxycodone and hydromorphone- continue to use lowest possible effective dose and ongoing assessment for adequate pain control vs oversedation -continue oxycodone rather than tramadol for pain as tramadol can lower the seizure threshold - monitor for constipation with opioid use- agree with current schedule bowel regimen Polypharmacy - on multiple medications with increased risk for fall/confusion in this older adult - from facility- [facility]- discussed with geriatric pharmacist, Ladan Mejia- MAR from facility requested for further review, but did have med list. Medication recommendations as below: - Agree with holding dicyclomine as it can further contribute to confusion and falls. Metoclopramide opposes activity of dicyclomine- recommend to decrease dose to 5mg BID. - Venlafaxine XR 37.5mg daily TENTER dose restarted - Agree with change to Carbamezapine 200 mg regular release TID for now- awaiting MAR from facilityfor verification of TID dosing. Consider check of carbamazepine level as gait disturbances can occur at high levels Follow-up: 1-2 days Subjective: HPI 71 y.o. year-old [facility]. Per review of H&P : unwitnessed fall at [facility], patient reportedly blacked out and woke up on the floor, takes Plavix. CT head was negative for ICH, XR L elbow with "mildy displaced and mildy comminuted acute olecranonfracture" and XR L femur with "acute left femoral neck fracture" Ortho surgery consulted: plan for OR for ORIF L olecranon and L hip blanca arthroplasty today. NPO prior to OR. Patient is known to geriatric inpatient service- recent hospitalization from 01/04-01/07 for syncopalfall. MMSE Score at that time was within normal range with score of 26/30. Recommendations were made for polypharmacy that may have contributed to fall risk. Midodrine and Florinef were added and d/c'ed back to facility. Interval History : remains on H6 Per review of chart- overnight/ early this morning had some documentation of "aphasia" and seeing spiders on the wall Per nursing, remains confused this morning Patient noted to be holding her IV in hand when I entered room today, she is slightly confused and inattentive, playing with things on the bed during our discussion- she does know that she is at [facility] and here for a fall, she denies any pain at time of my visit. PT/OT evals pending until post op Review of Systems Constitutional: Positive for activity change. Respiratory: Negative for cough and shortness of breath. Cardiovascular: Negative for chest pain. Gastrointestinal: Negative for constipation and nausea. Musculoskeletal: Positive for gait problem. Negative for arthralgias. Psychiatric/Behavioral: Positive for confusion. Negative for sleep disturbance. Objective: BP (!) 94/48 Pulse 96 Temp 96.9 F (36.1 C) (Temporal) Resp 18 Ht 5' 7" (1.702 m) Wt 195 lb (88.5 kg) SpO2 93% BMI 30.54 kg/m Intake/Output Summary (Last 24 hours) at 06/01/2022 0851 Last data filed at 06/01/2022 0604 Gross per 24 hour Intake 900 ml Output 600 ml Net 300 ml Patient Vitals for the past 96 hrs (Last 3 readings): Weight 05/30/22 1022 195 lb (88.5 kg) Physical Exam Constitutional: General: She is not in acute distress. Comments: Lying in bed, fidgeting with lines and other things in bed, slightly confused, but cooperative HENT: Mouth/Throat: Mouth: Mucous membranes are moist. Pharynx: Oropharynx is clear. Eyes: General: Right eye: No discharge. Left eye: No discharge. Conjunctiva/sclera: Conjunctivae normal. Comments: Glasses Cardiovascular: Rate and Rhythm: Normal rate and regular rhythm. Heart sounds: Normal heart sounds. Pulmonary: Effort: Pulmonary effort is normal. No respiratory distress. Breath sounds: Normal breath sounds. No wheezing, rhonchi or rales. Comments: Anterior only auscultated Abdominal: General: Bowel sounds are normal. Palpations: Abdomen is soft. Musculoskeletal: Cervical back: Normal range of motion. Comments: LUE splint in place Neurological: Mental Status: She is alert and oriented to person, place, and time. Sensory: No sensory deficit. Comments: Alert and oriented to self, knows summa, but unable to tell me this is a hospital Slightly confused during conversation Psychiatric: Attention and Perception: She is inattentive. She does not perceive visual hallucinations. Mood and Affect: Mood normal. Behavior: Behavior is not agitated or aggressive. Labs and Imaging: Recent Results (from the past 24 hour(s)) Basic Metabolic Panel w/ Reflex to MG Collection Time: 06/01/22 1:41 AM Result Value Ref Range Sodium 137 135 - 145 mmol/L Potassium 4.1 3.5 - 5.1 mmol/L Chloride 102 98 - 107 mmol/L CO2 31 (H) 22 - 30 mmol/L Anion Gap 4 3 - 13 mmol/L Glucose 155 (H) 70 - 100 mg/dL BUN 14 9 - 20 mg/dL Creatinine 0.78 0.52 - 1.25 mg/dL eGFR 87.5 >60 mL/min EGFR IF NonAfrican Hungarian 75.5 >60 mL/min Calcium 8.7 8.4 - 10.4 mg/dL CBC Collection Time: 06/01/22 1:41 AM Result Value Ref Range WBC 12.2 (H) 3.6 - 10.7 10*3/uL RBC 3.55 (L) 3.80 - 5.20 10*6/uL Hemoglobin 9.6 (L) 11.7 - 16.0 g/dL Hematocrit 30.0 (L) 35.0 - 47.0 % MCV 84.4 79.0 - 98.0 fL MCH 27.0 26.0 - 34.0 pg MCHC 32.0 32.0 - 36.0 % RDW 15.4 (H) 11.5 - 14.5 % Platelets 256 140 - 440 10*3/uL MPV 8.1 7.4 - 12.4 fL Lactic Acid Collection Time: 06/01/22 1:41 AM Result Value Ref Range Lactic Acid 1.6 0.7 - 2.0 mmol/L No results found for: TSH No components found for: B12 No results found for: VITD25 Reviewed: active problem list, medication list, allergies, family history, notes from last encounter, lab results, imaging at 8:51 AM * Rand Olivarez PT - 06/01/2022 7:44 AM EDT Physical Therapy Pt chart reviewed. Per ortho note "OR 06/01 for ORIF left olecranon fracture". Will follow and attempt post-surgery. Rand Olivarez PT * Jeannine Card PA-C - 06/01/2022 6:38 AM EDT Images from the original note were not included. Daily Trauma Progress Note Nurse Practitioner 06/01/2022 6:38 AM Admit Date: 05/30/2022 Post Trauma Day 2 Fall SH HISTORY OF TRAUMATIC EVENT: 71 y.o. female status post unwitnessed fall at her ECF. The incident happened at an unknown time. When the event happened the patient states she blacked out and woke up onthe floor of her room. She started to scream and cry when she awoke and states another resident called for help. P INJURIES: Left femoral neck fx Left olecranon fx PROCEDURES: - left femoral endoprosthetic replacement 05/31 INCIDENTAL FINDINGS: None CHIEF COMPLAINT: Left arm pain PREVIOUS 24 HOUR EVENTS: - OR yesterday for femoral neck fracture - WBAT LLE - episode of slurred speech and visual hallucinations. Neuro exam at the time intact. - ongoing delirium post anesthesia Consults: IP CONSULT TO ORTHOPEDIC SURGERY IP CONSULT TO GERIATRICS IP CONSULT TO PALLIATIVE CARE MEDICATIONS: Current Facility-Administered Medications Medication Dose Route Frequency Provider Last Rate Last Admin ceFAZolin (ANCEF) 2000 mg in dextrose 4 % 100 mL IVPB (premix) 2,000 mg IntraVENous Q8H Gillian Sykes MD Stopped at 06/01/22 0400 methocarbamol (ROBAXIN) tablet 500 mg 500 mg Oral TID Gillian Sykes MD 500 mg at 05/31/22 1445 lactated ringers infusion IntraVENous Continuous Gillian Sykes MD 75 mL/hr at 05/31/22 0641 New Bag at 05/31/22 0641 HYDROmorphone (DILAUDID) injection 0.5 mg 0.5 mg IntraVENous Q3H PRN Gillian Sykes MD Or HYDROmorphone (DILAUDID) injection 1 mg 1 mg IntraVENous Q3H PRN Gillian Sykes MD 1 mg at 06/01/22 0505 carBAMazepine (TEGRETOL) tablet 200 mg 200 mg Oral TID Gillian Sykes MD 200 mg at 445 venlafaxine (EFFEXOR XR) extended release capsule 37.5 mg 37.5 mg Oral Daily Gillian Sykes MD albuterol (PROVENTIL) nebulizer solution 1.25 mg 1.25 mg Nebulization Q6H PRN Gillian Sykes MD metoclopramide (REGLAN) injection 5 mg 5 mg IntraVENous BID Gillian Sykes MD naloxone (NARCAN) injection 0.4 mg 0.4 mg IntraVENous PRN Gillian Sykes MD oxyCODONE (ROXICODONE) immediate release tablet 2.5 mg 2.5 mg Oral Q4H PRN Gillian Sykes MD Or oxyCODONE (ROXICODONE) immediate release tablet 5 mg 5 mg Oral Q4H PRN Gillian Sykes MD 5 mg at 06/01/22 0242 sodium chloride flush 0.9 % injection 5-40 mL 5-40 mL IntraVENous 2 times per day Gillian Sykes MD 5 mL at 05/31/22 0842 sodium chloride flush 0.9 % injection 5-40 mL 5-40 mL IntraVENous PRN Gillian Sykes MD 0.9 % sodium chloride infusion IntraVENous PRN Gillian Sykes MD ondansetron (ZOFRAN-ODT) disintegrating tablet 4 mg 4 mg Oral Q8H PRN Gillian Sykes MD Or ondansetron (ZOFRAN) injection 4 mg 4 mg IntraVENous Q6H PRN Gillian Sykes MD 4 mg at 05/30/22 1127 polyethylene glycol (GLYCOLAX) packet 17 g 17 g Oral Daily Gillian Sykes MD 17 g at 05/30/22 1508 acetaminophen (TYLENOL) tablet 1,000 mg 1,000 mg Oral 3 times per day Gillian Sykes MD 1,000 mg at 06/01/22 0505 senna (SENOKOT) tablet 8.6 mg 1 tablet Oral Daily PRN Gillian Sykes MD bisacodyl (DULCOLAX) EC tablet 5 mg 5 mg Oral Daily Gillian Sykes MD 5 mg at 05/30/22 2109 busPIRone (BUSPAR) tablet 10 mg 10 mg Oral TID Gillian Sykes MD 10 mg at 05/31/22 1445 fludrocortisone (FLORINEF) tablet 0.1 mg 0.1 mg Oral Daily Gillian Sykes MD 0.1 mg at 05/31/22 0848 levothyroxine (SYNTHROID) tablet 150 mcg 150 mcg Oral Daily Gillian Sykes MD 150 mcg at 06/01/22 0505 melatonin tablet 5 mg 5 mg Oral Daily Gillian Sykes MD midodrine (PROAMATINE) tablet 5 mg 5 mg Oral TID Gillian Sykes MD 5 mg at 05/31/22 1445 pantoprazole (PROTONIX) tablet 40 mg 40 mg Oral BID Gillian Sykes MD 40 mg at 05/31/22 0843 pravastatin (PRAVACHOL) tablet 40 mg 40 mg Oral Daily Gillian Sykes MD 40 mg at 05/31/22 0842 pregabalin (LYRICA) capsule 150 mg 150 mg Oral BID Gillian Sykes MD 150 mg at 05/31/22 0843 risperiDONE (RISPERDAL) tablet 0.5 mg 0.5 mg Oral BID Gillian Sykes MD 0.5 mg at 05/31/22 0847 traZODone (DESYREL) tablet 50 mg 50 mg Oral Nightly Gillian Sykes MD 50 mg at 05/30/222108 ARE THERE PERTINENT UPDATES TO PAST,FAMILY, OR SOCIAL HISTORY?: No Subjective: Patient feels like she is "going crazy". States she does not feel like herself. [place] dogs barking in the room next door and earlier was seeing spiders on the wall. Patient with good insight and judgment. Aware of her delirium and wants it to go away. A and o x 3, repetative but able to repeat yesterday and todays OR plans. Note pain is ok. Review of Systems Constitutional: Positive for activity change. HENT: Negative. Respiratory: Negative. Cardiovascular: Negative. Gastrointestinal: Negative. Genitourinary: Negative. Musculoskeletal: Positive for arthralgias, gait problem, joint swelling and myalgias. Skin: Negative. Neurological: Positive for syncope. Negative for dizziness. Psychiatric/Behavioral: Negative. All other systems reviewed and are negative. PHQ In the last 2 weeks have you had: Little interest or pleasure in doing things No Been feeling down, depressed, or hopeless No If greater then 0, place CLP consult Date PHQ completed: 05/31/2022 Objective: Patient Vitals for the past 24 hrs: BP Temp Temp src Pulse Resp SpO2 06/01/22 0620 (!) 94/48 96.9 F (36.1 C) Temporal 96 18 93 % 06/01/22 0103 110/64 -- Temporal (!) 107 -- -- 06/01/22 0056 (!) 91/57 96.9 F (36.1 C) Temporal (!) 105 18 (!) 69 % 05/31/220 104/64 (!) 96.7 F (35.9 C) Temporal 97 18 -- 05/31/222114 120/68 -- -- 90 18 93 % 05/31/22 2100 113/67 97.7 F (36.5 C) Temporal 88 15 92 % 05/31/222044 (!) 140/68 -- -- 96 20 91 % 05/31/222029 119/62 -- -- 88 (!) 8 96 % 05/31/222014 112/68 -- -- 90 15 94 % 05/31/221999 125/62 -- -- 92 15 99 % 05/31/22 1956 127/61 98.3 F (36.8 C) Temporal 93 17 100 % 05/31/22 1726 116/65 97.2 F (36.2 C) Temporal 87 14 95 % 05/31/22 1310 -- -- -- -- 14 -- 05/31/22 1240 (!) 140/52 (!) 96.6 F (35.9 C) Temporal 83 16 93 % 05/31/22 1013 -- -- -- -- 16 -- 05/31/22 0855 121/66 (!) 96.3 F (35.7 C) Temporal 82 16 95 % 05/31/22 0800 -- -- -- -- 16 -- Date 06/01/22 0000 - 06/01/22 2359 Shift 9836-7981 0496-4278 4788-8426 24 Hour Total INTAKE Shift Total(mL/kg) OUTPUT Urine(mL/kg/hr) 500 500 Shift Total(mL/kg) 500(5.7) 500(5.7) Weight (kg) 88.5 88.5 88.5 88.5 Last BM: TENTER Diet: NPO for OR PHYSICAL: Physical Exam Vitals and nursing note reviewed. Constitutional: General: She is not in acute distress. Appearance: Normal appearance. She is not ill-appearing. HENT: Head: Normocephalic. Nose: Nose normal. Mouth/Throat: Mouth: Mucous membranes are dry. Eyes: Extraocular Movements: Extraocular movements intact. Pupils: Pupils are equal, round, and reactive to light. Cardiovascular: Rate and Rhythm: Normal rate. Pulses: Normal pulses. Pulmonary: Effort: Pulmonary effort is normal. Breath sounds: Normal breath sounds. Abdominal: General: Abdomen is flat. There is no distension. Palpations: Abdomen is soft. Genitourinary: Comments: [facility] in place Musculoskeletal: General: Swelling, tenderness and signs of injury present. Cervical back: Normal range of motion and neck supple. No rigidity or tenderness. Comments: L hip TTP. Incision c/d/I Foot: Left fifth digit with some swelling and ecchymosis. Minimal TTP. DP intact bilaterally. Left arm splinted, MSPs intact Skin: General: Skin is warm and dry. Capillary Refill: Capillary refill takes less than 2 seconds. Findings: No bruising. Neurological: General: No focal deficit present. Mental Status: She is alert and oriented to person, place, and time. Psychiatric: Mood and Affect: Mood normal. Sutures or cielo? No O2: None / / / Data Review Data CBC with Differential: Lab Results Component Value Date/Time WBC 12.2 06/01/2022 01:41 AM RBC 3.55 06/01/2022 01:41 AM HGB 9.6 06/01/2022 01:41 AM HCT 30.0 06/01/2022 01:41 AM PLT 256 06/01/2022 01:41 AM CMP: Lab Results Component Value Date/Time NA 137 06/01/2022 01:41 AM K 4.1 06/01/2022 01:41 AM CL 102 06/01/2022 01:41 AM CO2 31 06/01/2022 01:41 AM BUN 14 06/01/2022 01:41 AM CREATININE 0.78 06/01/2022 01:41 AM GLUCOSE 155 06/01/2022 01:41 AM CALCIUM 8.7 06/01/2022 01:41 AM BMP: Hepatic Function Panel:Ionized Calcium: No results found for: IONCA Magnesium: No results found for: MG Phosphorus: No results found for: PHOS PT/INR: Lab Results Component Value Date/Time PROTIME 10.7 05/30/2022 09:38 AM INR 1.0 05/30/2022 09:38 AM PTT: Lab Results Component Value Date/Time APTT 27.1 05/30/2022 09:38 AM [APTT Last 3 Troponin: Lab Results Component Value Date/Time TROPONINI <0.012 05/30/2022 09:38 AM Urine Culture: No components found for: CURINE Blood Culture: No components found for: CBLOOD, CFUNGUSBL Blood Culture from Central Line: No components found for: CBLOODLN Stool Culture: No components found for: CSTOOL Sputum Culture: No components found for: CSPUTUM Sputum Culture for AFB: No components found for: CAFBSM Wound Culture: NA Radiology: XR ELBOW LEFT (MIN 3 VIEWS) Result Date: 05/30/2022 Patient Name: ANDRE BLANCA Diagnostic Radiology ACCESSION EXAMDATE/TIME PROCEDURE ORDERING PROVIDER [id number] 05/30/2022 10:17 EDT CR Elbow 3+ Views Left [id number] MARGARET ASHRAF CPT code 19006 Reason For Exam (CR Elbow 3+ Views Left) left elbow pain s/p fall Report LEFT ELBOW CLINICAL INDICATION: Pain after trauma left elbow pain s/p fall AP, lateral, andoblique plain film views of the left elbow were obtained. COMPARISON: None FINDINGS: There is an acute, mildly comminuted olecranon fracture of the humerus with mild proximal retraction of the major olecranon fracture fragment. Radiocapitellar alignment is maintained. Soft tissue swelling is present overlying the fracture. No fracture of the distal humerus or proximal radius is identified. IMPRESSION: Mildly displaced and mildly comminuted acute olecranon fracture. Report Dictated on --- Final --- Dictated: 05/30/2022 10:22 am Dictating Physician: MD IGLESIAS THOMAS Signed Date and Time: 05/30/2022 10:24 am Signed by: MD IGLESIAS THOMAS Transcribed Date and Time: 05/30/2022 10:22 XR FEMUR LEFT (MIN 2 VIEWS) Result Date: 05/30/2022 Patient Name: ANDRE BLANCA Diagnostic Radiology ACCESSION EXAMDATE/TIME PROCEDURE ORDERING PROVIDER [id number] 05/30/2022 10:17 EDT CR Femur 2+ Views Left n [id number] GOMEZ CPT code 54827 Reason For Exam (CR Femur 2+ Views Left n) left leg pain s/p fall Report LEFT FEMUR PELVIS CLINICAL INDICATION: Pain left leg pain s/p fall AP and lateral plain film views of the left femur were obtained. AP radiograph the pelvis. COMPARISON: None FINDINGS: There is an acute transcervical fracture of the left femoral neck with mild anterior angulation of the fracture apex. No other acute fractures of the left femur or pelvis are identified. IMPRESSION: Acuteleft femoral neck fracture. Report Dictated on --- Final --- Dictated: 05/30/2022 10:24 am Dictating Physician: MD IGLESIAS THOMAS Signed Date and Time: 05/30/2022 10:28 am Signed by: MD IGLESIAS THOMAS Transcribed Date and Time: 05/30/2022 10:24 CT head without contrast Result Date: 05/30/2022 [id number] Tomography ACCESSION EXAM DATE/TIME PROCEDURE ORDERING PROVIDER [id number] 05/30/2022 16:[address] Head or Brain w/o [id number], RADHA Contrast CPT code 56665 Reason For Exam (CT Head or Brain w/o Contrast) fall on plavix Report CT BRAIN WITHOUT CONTRAST CLINICAL INDICATION: fall on plavix TECHNIQUE: CT scan of the brain without IV contrast. Multiplanar reformations. COMPARISON: Earlier on same date at 0945 hours. FINDINGS: No apparent mass or mass effect, hemorrhage, midline shift or hydrocephalus. No evidence of acute cortical infarct. No abnormal, extra-axial fluid or air collection. Patchy low density in the periventricular and subcortical white matter is nonspecific, but may relate to chronic small vessel ischemic change. Probable old lacunar infarct changes again noted in and left caudate nucleus head. Mild, diffuse volume loss. Osseous calvarium grossly intact. IMPRESSION: 1. No acute intracranial findings. 2. Probable chronic ischemic and atrophic changes. Report Dictated on --- Final --- Dictated: 05/30/2022 5:06 pm Dictating Physician: MD OCHOA WENDELL SignedDate and Time: 05/30/2022 5:10 pm Signed by: MD OCHOA WENDELL Transcribed Date and Time: 05/30/2022 5:06 CT HEAD WO CONTRAST Result Date: 05/30/2022 Patient Name: ANDRE BLANCA Computed Tomography ACCESSION EXAM DATE/TIME PROCEDURE ORDERING PROVIDER [id number] 05/30/2022 09:[address] Head or Brain w/o [id number], CAYLA Contrast CPT code 30825 Reason For Exam (CT Head or Brain w/o Contrast) trauma Report CT HEAD WITHOUT CONTRAST: INDICATION: Cough COMPARISON: None. Unenhanced CT images of the head from skull base to vertex were obtained. The images are reviewed in the axial, sagittal and coronal planes. The ventricles and sulci are enlarged, consistent with atrophy. Focal and confluent areas oflow-attenuation are noted within the subcortical and periventricular white matter suggesting chronic ischemia. There is no evidence of hemorrhage, mass or large acute infarct. A remote lacunar infarct is seen on the left near the caudate nucleus head. Additional focal areas of low-attenuation are seen involving the dionisio. There is no mass or significant shift of the midline structures. There are no extraaxial or posterior fossa masses or fluid collections. The hypothalamic and parasellar regionsare unremarkable. There is mild mucosal thickening of the right maxillary sinus. IMPRESSION: No acute intracranial process. Multifocal remote infarcts.. Report Dictated on --- Final --- Dictated: 05/30/2022 10:49 am Dictating Physician: DO MCGUIRE ALFRED Signed Dateand Time: 05/30/2022 10:56 am Signed by: DO MCGUIRE ALFRED Transcribed Date and Time: 05/30/2022 10:49 CT CERVICAL SPINE WO CONTRAST Result Date: 05/30/2022 [id number] Computed Tomography ACCESSION EXAM DATE/TIME PROCEDURE ORDERING PROVIDER [id number] 05/30/2022 09:[address] Spine Cervical w/o [id number] -CAYLA MADRIGAL Contrast CPT code 77036 Reason For Exam (CT Spine Cervical w/o Contrast) trauma Report CT CERVICAL SPINE WITHOUT CONTRAST: INDICATION: Neck pain after trauma COMPARISON: None. Axial scans of the cervical spine performed from the skull base to the thoracic inlet, with sagittal andcoronal reconstructions. On the sagittal reconstruction images, the anatomic alignment of the vertebral bodies is normal. There is no evidence of fracture or subluxation in the cervical spine. Disc sp jerardo narrowing and marginal spurring is noted at C6-C7 with mild bilateral foraminal encroachment. The prevertebral soft-tissues are normal. The craniocervical junction and C1-2 junction appear normal. The odontoid is intact. IMPRESSION: Arthritic changes. No acute process. Report Dictated on Worksta tion: [id number] --- Final --- Dictated: 05/30/2022 10:58 am Dictating Physician: DO MCGUIRE ALFRED Signed Date and Time: 05/30/2022 11:00 am Signed by: DO MCGUIRE ALFRED Transcribed Date and Time: 05/30/2022 10:58 XR Tibia Fibula Bilateral Result Date: 05/30/2022 Patient Name: ANDRE BLANCA Diagnostic Radiology ACCESSION EXAMDATE/TIME PROCEDURE ORDERING PROVIDER [id number] 05/30/2022 19:27 EDT CR Tibia/Fibula 2 Views MD FARAZ, ERLINDA Bilateral CPT code 17572 Reason For Exam (CR Tibia/Fibula 2 Views Bilateral) Bilateral leg pain Report EXAMINATION: Bilateral tibia and fibula CLINICAL INDICATION: Bilateral leg pain TECHNIQUE: AP and lateral radiographs of the bilateral tibia/fibula COMPARISON: None FINDINGS: No fracture or dislocation. Degenerative changes are present in the bilateral knees, greater on the right.No soft tissue swelling. Report Dictated on --- Final --- Dictated: 05/30/2022 7:12 pm Dictating Physician: MD HICKS NICHOLAS Signed Date and Time: 05/30/2022 7:15 pm Signed by: MD HICKS NICHOLAS Transcribed Date and Time: 05/30/2022 7:12 XR CHEST PORTABLE Result Date: 05/30/2022 Patient Name: ANDRE BLANCA Diagnostic Radiology ACCESSION EXAMDATE/TIME PROCEDURE ORDERING PROVIDER [id number] 05/30/2022 10:36 EDT CR Chest Portable LALIT RECIO CPT code 02209 Reason For Exam (CR Chest Portable) fall, left shoulder pain Report APCHEST X- RAY CLINICAL INDICATION: fall, left shoulder pain TECHNIQUE: AP portable x-ray of the chest. COMPARISON: None FINDINGS: Heart/Mediastinum: Prominence of the superior mediastinum is most likely from rightward patient rotation. Heart size is within normal limits. Lungs: Low lung volumes. No definite airspace consolidation or pleural effusion. Bones: No displaced fractures. Degenerative endplate spurring is present throughout the mid and lower aspects of the thoracic spine. IMPRESSION: No evidence of an acute cardiopulmonary abnormality. Report Dictated on --- Final --- Dictated: 05/30/2022 10:29 am Dictating Physician: MD IGLESIAS THOMAS Signed Date and Time: 05/30/2022 10:31 am Signed by: MD IGLESIAS THOMAS Transcribed Date and Time: 05/30/2022 10:29 XR Shoulder Left 2 VW Result Date: 05/30/2022 Patient Name: ANDRE BLANCA Diagnostic Radiology ACCESSION EXAMDATE/TIME PROCEDURE ORDERING PROVIDER [id number] 05/30/2022 10:17 EDT CR Shoulder 2+ Views [id number] -MARGARET CUEVAS Left CPT code 40195 Reason For Exam (CR Shoulder 2+ Views Left) fall, left shoulder pain Report EXAMINATION: CR Shoulder 2+ Views Left CLINICAL HISTORY: fall, left shoulder pain COMPARISON: None TECHNIQUE: Grashey, axillary, and transscapular views of the left shoulder FINDINGS: The patient is status post 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 There is mild heterotopic ossification adjacent to the glenoid prosthesis. The acromioclavicular joint is intact. No left rib fractures are identified. No osseous lesions are seen. IMPRESSION: 1. No periprosthetic fracture of the left shoulder. Report Dictated on --- Final --- Dictated: 05/30/2022 10:28 am Dictating Physician: MD IGLESIAS THOMAS Signed Date and Time: 05/30/2022 10:29 am Signed by: MD IGLESIAS THOMAS Transcribed Date and Time: 05/30/2022 10:28 XR PELVIS (1-2 VW) Result Date: 05/30/2022 Patient Name: ANDRE BLANCA Diagnostic Radiology ACCESSION EXAMDATE/TIME PROCEDURE ORDERING PROVIDER [id number] 05/30/2022 10:36 EDT CR Pelvis 1 or 2 Views [id number] -LALIT PICHARDO CPT code 01793 Reason For Exam (CR Pelvis 1 or 2 Views) fall, left hip pain Report LEFT FEMUR PELVIS CLINICAL INDICATION: Pain left leg pain s/p fall AP and lateral plain film views of the left femur were obtained. AP radiograph the pelvis. COMPARISON: None FINDINGS: There is an acute transcervical fracture of the left femoral neck with mild anterior angulation of the fracture apex. No other acute fractures of the left femur or pelvis are identified. IMPRESSION: Acute left fem oral neck fracture. Report Dictated on --- Final --- Dictated: 05/30/2022 10:24 am Dictating Physician: MD IGLESIAS THOMAS Signed Date and Time: 05/30/2022 10:28 am Signed by: MD IGLESIAS THOMAS Transcribed Date and Time: 05/30/2022 10:24 Patient Active Problem List Diagnosis Fall at home, initial encounter Closed displaced fracture of left femoral neck (HCC) Closed fracture of left olecranon process Syncope Acute traumatic pain At risk for delirium Polypharmacy Palliative care encounter Goals of care, counseling/discussion ASSESSMENT: 71y F S/P fall with Left femoral neck fx and left olecranon fx PLAN: Neuro/Spine: - Pain: Scheduled tylenol, robaxin, prn oxy/dilaudid. - Hx fibromyalgia: home Lyrica - Hx bipolar/depression - Home meds: buspirone, risperidone, Effexor, trazodone, carbamazepine - Melatonin nightly - Palliative/Geriatrics consult - CT head X 2 negative - Delirium protocol HEENT: - No concerns Cardiovascular: - Hx of syncope/orthostasis - Home meds: florinef, midodrine - Orthostatic vitals pending - ECHO 01/04: EF 65% - Hx HLD: home Pravachol Pulmonary: - IS, cough and deep breathe FEN/GI: - Regular diet after OR - NPO, LR@ 75ml/hour - Bowel regimen - Nausea: Reglan every 6 hours, prn zofran - Hx GERD: home protonix : - CrCl: 75 Heme: - Hgb: 9.6, monitor ID: - No concerns Endo: - Home synthroid Lines/Devices: - PIV - [facility] Prophylaxis: DVT: None Has DVT PPX been started? No, Lovenox to start tonight at 2100 If no, why? Plan for OR today GI: protonix Pressure Ulcer: None, turn q 2 hours Musculoskeletal: - Left olecranon fx - Left femoral neck fx - left femoral endoprosthetic replacement 05/31 - Left foot 5th digit fracture; post op shoe WB Status: RUE:AT LUE: NWB RLE: AT LLE: WBAT Is the patient in restraints?: no Medications Reconciled- Yes [x] NO [], why Disposition: Continue H6 care, to OR today with ortho for LUE, delirium protocol, pain control, geriatrics/palliative, PT/OT, dispo planning Associated attestation - Cayla Madrigal MD - 06/02/2022 9:27 PM EDT ATTENDING ADDENDUM Active Diagnoses/Problems this Admission: Hospital Problems Last Modified POA Fall at home, initial encounter 05/30/2022 Yes Closed displaced fracture of left femoral neck (HCC) 05/30/2022 Yes Closed fracture of left olecranon process 05/30/2022 Yes Syncope 05/30/2022 Yes Acute traumatic pain 05/30/2022 Yes At risk for delirium 05/31/2022 Yes Polypharmacy 05/31/2022 Yes Palliative care encounter 05/31/2022 Yes Goals of care, counseling/discussion 05/31/2022 Yes Acute encephalopathy 06/01/2022 Yes Vitamin D deficiency 06/02/2022 Yes I personally supervised the MANAGER PROJECT/ANALISA in the evaluation and development of a treatment plan for this patient on the same day of service as above. I personally discussed the review of systems and interviewed the patient along with performing a physical examination. I reviewed the recent events, imaging, labs, vital signs. In addition, I discussed the patient's condition and treatment options with him/her when possible. I have also reviewed and agree with the past medical, family, and social history unless otherwise noted. All of the patient's questions were answered and family updated when appropriate and possible. A complete review of systems was obtained and is negative except as stated in HPI and/or SubjectiveSection. POD#1 s/p ORIF L femur. Patient is delirious and states that she is having auditory hallucinations.She has good insight and is aware of the fact she is confused. Will re-engage Geriatrics given the medication changes made yesterday. Greater than 51% of the >= 25 minute total care time throughout the day (including chart review,care coordination, and [id number]-nx-sfui encounter) was spent discussing/counseling the patient/family regarding the care plan for Andre Blanca. I examined the patient independently and reviewed relevant data myself and may have done so in the context of team rounds. A full chart review was performed. Cayla Madrigal MD Division of Trauma Department of Surgery [facility] Pager: [phone] * Gillian Sykes MD - 06/01/2022 5:56 AM EDT Department of Orthopedic Surgery Progress Note SUBJECTIVE: Some slurred speech/expressive aphasia noted by nursing staff overnight, patient able to follow simple commands, no slurred speech noted on examination this morning. OBJECTIVE: General: in no acute distress and a&o x1 VITALS: BP 110/64 Pulse (!) 107 Temp 96.9 F (36.1 C) (Temporal) Resp 18 Ht 5' 7" (1.702 m) Wt 195 lb (88.5 kg) SpO2 (!) 69% BMI 30.54 kg/m MSK exam: LLE: Dressing/Incision: clean, dry, and intact SILT s/s/sp/dp/t n. +motor DF/PF/EHL Palp DP pulse LUE: Splint to LUE c/d/I SILT median/ulnar/radial n. BCR to all digits +motor AIN/PIN/ulnar n. Labs: CBC: Lab Results Component Value Date/Time WBC 12.2 06/01/2022 01:41 AM RBC 3.55 06/01/2022 01:41 AM HGB 9.6 06/01/2022 01:41 AM HCT 30.0 06/01/2022 01:41 AM MCV 84.4 06/01/2022 01:41 AM MCH 27.0 06/01/2022 01:41 AM MCHC 32.0 06/01/2022 01:41 AM RDW 15.4 06/01/2022 01:41 AM PLT 256 06/01/2022 01:41 AM MPV 8.1 06/01/2022 01:41 AM BMP: Lab Results Component Value Date/Time NA 137 06/01/2022 01:41 AM K 4.1 06/01/2022 01:41 AM CL 102 06/01/2022 01:41 AM CO2 31 06/01/2022 01:41 AM BUN 14 06/01/2022 01:41 AM CREATININE 0.78 06/01/2022 01:41 AM CALCIUM 8.7 06/01/2022 01:41 AM GLUCOSE 155 06/01/2022 01:41 AM Type and Screen: Lab Results Component Value Date/Time LABABO O 05/30/2022 09:41 AM RH POS 05/30/2022 09:41 AM LABANTI NEG 05/30/2022 09:41 AM INR: Lab Results Component Value Date/Time INR 1.0 05/30/2022 09:38 AM CRP: No results found for: CRP ESR: No results found for: SEDRATE ASSESSMENT AND PLAN: This is a 71 y.o. 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 Expressive aphasia still present * Urvashi Garza RN - 06/01/2022 2:04 AM EDT Pt came up to unit at 2130 from PACU. Pt A&O X 1. Not her baseline, provider notified. Providerevaluated patient at bedside. Says it might be due to anesthesia. Ordered labs, lab drawn at [id number]. Noticed expressive aphasia. Provider notified again . * Rodolfo Morgan MD - 06/01/2022 1:12 AM EDT Orthopedic surgery progress note: Left foot x-rays completed, there is a small and nondisplaced chronic appearing fracture at the head of the 5th toe's proximal phalanx. No other acute fractures or dislocations visualized. Diffuse osteoarthritic changes and osteopenia noted. No specific treatment required, if patient complaints of pain, a post-op shoe can be provided if necessary. Rodolfo Morgan MD PGY-2, Orthopaedic Surgery [id number] * Cecy Lugo MD - 05/31/2022 11:35 PM EDT Notified by RN that patient had some slurred speech in the PACU after her orthopedic surgery this evening. Patient was no longer slurring speech upon arrival to the floor, however was not oriented, repeatedly saying "doctor" and not following commands (11:00pm). Patient was seen and examined at bedside at 11:15pm. Patient was then tired but awake and alert, sipping on water and eating pudding. She was A&Ox4, responding appropriately to commands. No slurred speech, normal strength and neurosensory exam. Labs ordered: CBC, BMP, Lactic acid given ortho surgery this evening - will follow up on results. Cecy Lugo MD General Surgery, PGY-1 05/31/22 11:40 PM * Rodolfo Morgan MD - 05/31/2022 9:18 PM EDT Orthopedic surgery progress note: Post-operative left hip X-rays show a concentric hemiarthroplasty implants with no visible periprosthetic fractures or dislocations. Rodolfo Morgan MD PGY-2, Orthopaedic Surgery [id number] * Aileen Thomas RN - 05/31/2022 8:53 PM EDT Patient arrived on unit. Name and date verified. Attached to monitors. Vital signs stable. Family updated via smart call * Lourdes Portillo OT - 05/31/2022 10:26 AM EDT Occupational Therapy Note Per chart review pt plan for OR today. Will hold OT and continue to follow. Lourdes Portillo OTR/L * Kim Lozano, PT - 05/31/2022 7:51 AM EDT Physical Therapy Pt having surgery today (hip hemiarthroplasty and ORIF olecranon). Will follow post-op * Gillian Sykes MD - 05/31/2022 7:16 AM EDT Department of Orthopedic Surgery Progress Note SUBJECTIVE: No complaints, questions about surgery answered this morning. OBJECTIVE: General: alert and oriented to person, place and time, well-developed and well- nourished, in no acute distress VITALS: BP 117/62 Pulse 80 Temp 96.8 F (36 C) (Temporal) Resp 16 Ht 5' 7" (1.702 m) Wt 195 lb (88.5 kg) SpO2 93% BMI 30.54 kg/m MSK exam: LUE: Splint c/d/I SILT median/ulnar/radial n. +motor AIN/PIN/ulnar n. BCR to all digits LLE: Skin over lateral hip c/d/I SILT s/s/sp/dp/t +motor DF/PF/EHL Palp DP pulse Labs: CBC: Lab Results Component Value Date/Time WBC 11.7 05/31/2022 01:39 AM RBC 3.93 05/31/2022 01:39 AM HGB 10.9 05/31/2022 01:39 AM HCT 33.6 05/31/2022 01:39 AM MCV 85.7 05/31/2022 01:39 AM MCH 27.8 05/31/2022 01:39 AM MCHC 32.4 05/31/2022 01:39 AM RDW 15.4 05/31/2022 01:39 AM PLT 253 05/31/2022 01:39 AM MPV 7.9 05/31/2022 01:39 AM BMP: Lab Results Component Value Date/Time NA 139 05/31/2022 01:39 AM K 3.8 05/31/2022 01:39 AM CL 102 05/31/2022 01:39 AM CO2 29 05/31/2022 01:39 AM BUN 11 05/31/2022 01:39 AM CREATININE 0.63 05/31/2022 01:39 AM CALCIUM 8.7 05/31/2022 01:39 AM GLUCOSE 112 05/31/2022 01:39 AM Type and Screen: Lab Results Component Value Date/Time LABABO O 05/30/2022 09:41 AM RH POS 05/30/2022 09:41 AM LABANTI NEG 05/30/2022 09:41 AM INR: Lab Results Component Value Date/Time INR 1.0 05/30/2022 09:38 AM CRP: No results found for: CRP ESR: No results found for: SEDRATE ASSESSMENT AND PLAN: This is a 71 y.o. 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 Daily Trauma Progress Note Nurse Practitioner 05/31/2022 6:30 AM Admit Date: 05/30/2022 Post Trauma Day 1 Fall SH HISTORY OF TRAUMATIC EVENT: 71 y.o. female status post unwitnessed fall at her [facility]. The incident happened at an unknown time. When the event happened the patient states she blacked out and woke up onthe floor of her room. She started to scream and cry when she awoke and states another resident called for help. P INJURIES: Left femoral neck fx Left olecranon fx PROCEDURES: None INCIDENTAL FINDINGS: None CHIEF COMPLAINT: Left arm pain PREVIOUS 24 HOUR EVENTS: - Presented as surgical team - Admitted to - Ortho eval Consults: IP CONSULT TO ORTHOPEDIC SURGERY IP CONSULT TO GERIATRICS IP CONSULT TO PALLIATIVE CARE MEDICATIONS: Current Facility-Administered Medications Medication Dose Route Frequency Provider Last Rate Last Admin methocarbamol (ROBAXIN) tablet 500 mg 500 mg Oral TID Radha Moon APRN - EDUCATION ADVISER lactated ringers infusion IntraVENous Continuous Radha Moon APRN - ML sodium chloride flush 0.9 % injection 5-40 mL 5-40 mL IntraVENous 2 times per day Radha Moon APRN - EDUCATION ADVISER 10 mL at 05/30/221 sodium chloride flush 0.9 % injection 5-40 mL 5-40 mL IntraVENous PRN Radha Moon APRN - ML 0.9 % sodium chloride infusion IntraVENous PRN Radha Moon MANAGER PROJECT - EDUCATION ADVISER ondansetron (ZOFRAN-ODT) disintegrating tablet 4 mg 4 mg Oral Q8H PRN Radha Moon APRN - ML Or ondansetron (ZOFRAN) injection 4 mg 4 mg IntraVENous Q6H PRN Radha Moon APRN - EDUCATION ADVISER 4 mg at 05/30/22 1127 polyethylene glycol (GLYCOLAX) packet 17 g 17 g Oral Daily Radha Moon MANAGER PROJECT - EDUCATION ADVISER 17 g at 05/30/22 1508 acetaminophen (TYLENOL) tablet 1,000 mg 1,000 mg Oral 3 times per day Radha Moon APRN - EDUCATION ADVISER 1,000 mg at 05/31/22 0537 oxyCODONE (ROXICODONE) immediate release tablet 2.5 mg 2.5 mg Oral Q4H PRN Radha Moon MANAGER PROJECT - EDUCATION ADVISER Or oxyCODONE (ROXICODONE) immediate release tablet 5 mg 5 mg Oral Q4H PRN Radha Moon MANAGER PROJECT - EDUCATION ADVISER 5 mg at 05/31/22 0537 HYDROmorphone (DILAUDID) injection 0.25 mg 0.25 mg IntraVENous Q3H PRN Radha Moon MANAGER PROJECT - EDUCATION ADVISER Or HYDROmorphone (DILAUDID) injection 0.5 mg 0.5 mg IntraVENous Q3H PRN Radha Moon, MANAGER PROJECT - EDUCATION ADVISER 0.5 mg at 05/31/22 0255 senna (SENOKOT) tablet 8.6 mg 1 tablet Oral Daily PRN Radha Moon MANAGER PROJECT - EDUCATION ADVISER bisacodyl (DULCOLAX) EC tablet 5 mg 5 mg Oral Daily Radha Moon APRN - EDUCATION ADVISER 5 mg at 05/30/222108 busPIRone (BUSPAR) tablet 10 mg 10 mg Oral TID Radha Moon MANAGER PROJECT - EDUCATION ADVISER 10 mg at 05/30/222108 carBAMazepine (CARBATROL) extended release capsule 200 mg 200 mg Oral BID Radha Moon, MANAGER PROJECT - EDUCATION ADVISER 200 mg at 05/30/222109 fludrocortisone (FLORINEF) tablet 0.1 mg 0.1 mg Oral Daily Radha Moon APRN - EDUCATION ADVISER 0.1 mg at 05/30/22 1508 levothyroxine (SYNTHROID) tablet 150 mcg 150 mcg Oral Daily Radha Moon, MANAGER PROJECT - EDUCATION ADVISER 150 mcg at 05/30/22 1507 melatonin tablet 5 mg 5 mg Oral Daily Radha Moon MANAGER PROJECT - EDUCATION ADVISER midodrine (PROAMATINE) tablet 5 mg 5 mg Oral TID Radha Moon MANAGER PROJECT - EDUCATION ADVISER 5 mg at 05/30/222108 pantoprazole (PROTONIX) tablet 40 mg 40 mg Oral BID Radha Moon MANAGER PROJECT - EDUCATION ADVISER 40 mg at 05/30/222108 pravastatin (PRAVACHOL) tablet 40 mg 40 mg Oral Daily Radha Moon MANAGER PROJECT - EDUCATION ADVISER 40 mg at 05/30/22 1507 pregabalin (LYRICA) capsule 150 mg 150 mg Oral BID Radha Moon, MANAGER PROJECT - EDUCATION ADVISER 150 mg at 05/30/222108 risperiDONE (RISPERDAL) tablet 0.5 mg 0.5 mg Oral BID Radha Moon, MANAGER PROJECT - EDUCATION ADVISER 0.5 mg at 05/30/222110 traZODone (DESYREL) tablet 50 mg 50 mg Oral Nightly Radha [place], MANAGER PROJECT - EDUCATION ADVISER 50 mg at 05/30/222108 venlafaxine (EFFEXOR XR) extended release capsule 75 mg 75 mg Oral Daily Radha Red, MANAGER PROJECT - EDUCATION ADVISER 75 mg at 05/30/22 151 metoclopramide (REGLAN) injection 10 mg 10 mg IntraVENous Q6H Radha Moon, MANAGER PROJECT - EDUCATION ADVISER 10 mg at 05/31/22 0255 ARE THERE PERTINENT UPDATES TO PAST,FAMILY, OR SOCIAL HISTORY?: No Subjective: States pain is currently well controlled. Aware of plan for OR. Would really like to eat something. Review of Systems Constitutional: Positive for activity change. HENT: Negative. Respiratory: Negative. Cardiovascular: Negative. Gastrointestinal: Negative. Genitourinary: Negative. Musculoskeletal: Positive for arthralgias, gait problem, joint swelling and myalgias. Skin: Negative. Neurological: Positive for syncope. Negative for dizziness. Psychiatric/Behavioral: Negative. All other systems reviewed and are negative. PHQ In the last 2 weeks have you had: Little interest or pleasure in doing things No Been feeling down, depressed, or hopeless No If greater then 0, place CLP consult Date PHQ completed: 05/31/2022 Objective: Patient Vitals for the past 24 hrs: BP Temp Temp src Pulse Resp SpO2 Height Weight 05/31/22 0444 117/62 96.8 F (36 C) Temporal 80 16 93 % -- -- 05/31/22 0121 135/70 96.9 F (36.1 C) Temporal 76 17 96 % -- -- 05/30/22 1954 127/75 97.6 F (36.4 C) Temporal 83 18 97 % -- -- 05/30/22 1833 129/70 97 F (36.1 C) Temporal 79 18 95 % -- -- 05/30/22 1416 108/65 97.8 F (36.6 C) Temporal 80 18 94 % -- -- 05/30/22 1022 (!) 153/63 98.9 F (37.2 C) Oral 72 17 94 % 5' 7" (1.702 m) 195 lb (88.5 kg) Last BM: TENTER Diet: NPO for OR PHYSICAL: Physical Exam Vitals and nursing note reviewed. Constitutional: General: She is not in acute distress. Appearance: Normal appearance. She is not ill-appearing. HENT: Head: Normocephalic. Nose: Nose normal. Mouth/Throat: Mouth: Mucous membranes are dry. Eyes: Extraocular Movements: Extraocular movements intact. Pupils: Pupils are equal, round, and reactive to light. Cardiovascular: Rate and Rhythm: Normal rate. Pulses: Normal pulses. Pulmonary: Effort: Pulmonary effort is normal. Breath sounds: Normal breath sounds. Abdominal: General: Abdomen is flat. There is no distension. Palpations: Abdomen is soft. Musculoskeletal: General: Swelling, tenderness and signs of injury present. Cervical back: Normal range of motion and neck supple. No rigidity or tenderness. Comments: L hip TTP Left arm splinted, MSPs intact Skin: General: Skin is warm and dry. Capillary Refill: Capillary refill takes less than 2 seconds. Findings: No bruising. Neurological: General: No focal deficit present. Mental Status: She is alert and oriented to person, place, and time. Psychiatric: Mood and Affect: Mood normal. Sutures or cielo? No O2: None / / / Data Review Data CBC with Differential: Lab Results Component Value Date/Time WBC 11.7 05/31/2022 01:39 AM RBC 3.93 05/31/2022 01:39 AM HGB 10.9 05/31/2022 01:39 AM HCT 33.6 05/31/2022 01:39 AM PLT 253 05/31/2022 01:39 AM CMP: Lab Results Component Value Date/Time NA 139 05/31/2022 01:39 AM K 3.8 05/31/2022 01:39 AM CL 102 05/31/2022 01:39 AM CO2 29 05/31/2022 01:39 AM BUN 11 05/31/2022 01:39 AM CREATININE 0.63 05/31/2022 01:39 AM GLUCOSE 112 05/31/2022 01:39 AM CALCIUM 8.7 05/31/2022 01:39 AM BMP: Hepatic Function Panel:Ionized Calcium: No results found for: IONCA Magnesium: No results found for: MG Phosphorus: No results found for: PHOS PT/INR: Lab Results Component Value Date/Time PROTIME 10.7 05/30/2022 09:38 AM INR 1.0 05/30/2022 09:38 AM PTT: Lab Results Component Value Date/Time APTT 27.1 05/30/2022 09:38 AM [APTT Last 3 Troponin: Lab Results Component Value Date/Time TROPONINI <0.012 05/30/2022 09:38 AM Urine Culture: No components found for: CURINE Blood Culture: No components found for: CBLOOD, CFUNGUSBL Blood Culture from Central Line: No components found for: CBLOODLN Stool Culture: No components found for: CSTOOL Sputum Culture: No components found for: CSPUTUM Sputum Culture for AFB: No components found for: CAFBSM Wound Culture: NA Radiology: XR ELBOW LEFT (MIN 3 VIEWS) Result Date: 05/30/2022 Patient Name: ANDRE BLANCA Diagnostic Radiology ACCESSION EXAMDATE/TIME PROCEDURE ORDERING PROVIDER [id number] 05/30/2022 10:17 EDT CR Elbow 3+ Views Left [id number] -MARGARET CUEVAS CPT code 68044 Reason For Exam (CR Elbow 3+ Views Left) left elbow pain s/p fall Report LEFT ELBOW CLINICAL INDICATION: Pain after trauma left elbow pain s/p fall AP, lateral, andoblique plain film views of the left elbow were obtained. COMPARISON: None FINDINGS: There is an acute, mildly comminuted olecranon fracture of the humerus with mild proximal retraction of the major olecranon fracture fragment. Radiocapitellar alignment is maintained. Soft tissue swelling is present overlying the fracture. No fracture of the distal humerus or proximal radius is identified. IMPRESSION: Mildly displaced and mildly comminuted acute olecranon fracture. Report Dictated on --- Final --- Dictated: 05/30/2022 10:22 am Dictating Physician: MD IGLESIAS THOMAS Signed Date and Time: 05/30/2022 10:24 am Signed by: MD IGLESIAS THOMAS Transcribed Date and Time: 05/30/2022 10:22 XR FEMUR LEFT (MIN 2 VIEWS) Result Date: 05/30/2022 [id number]iology ACCESSION EXAMDATE/TIME PROCEDURE ORDERING PROVIDER [id number] 05/30/2022 10:17 EDT CR Femur 2+ Views Left n [id number] -MARGARET CUEVAS CPT code 98449 Reason For Exam (CR Femur 2+ Views Left n) left leg pain s/p fall Report LEFT FEMUR PELVIS CLINICAL INDICATION: Pain left leg pain s/p fall AP and lateral plain film views of the left femur were obtained. AP radiograph the pelvis. COMPARISON: None FINDINGS: There is an acute transcervical fracture of the left femoral neck with mild anterior angulation of the fracture apex. No other acute fractures of the left femur or pelvis are identified. IMPRESSION: Acuteleft femoral neck fracture. Report Dictated on --- Final --- Dictated: 05/30/2022 10:24 am Dictating Physician: MD IGLESIAS THOMAS Signed Date and Time: 05/30/2022 10:28 am Signed by: MD IGLESIAS THOMAS Transcribed Date and Time: 05/30/2022 10:24 CT head without contrast Result Date: 05/30/2022 Patient Name: ANDRE BLANCA Computed Tomography ACCESSION EXAM DATE/TIME PROCEDURE ORDERING PROVIDER [id number] 05/30/2022 16:[address] Head or Brain w/o [id number] MOON Contrast CPT code 53421 Reason For Exam (CT Head or Brain w/o Contrast) fall on plavix Report CT BRAIN WITHOUT CONTRAST CLINICAL INDICATION: fall on plavix TECHNIQUE: CT scan of the brain without IV contrast. Multiplanar reformations. COMPARISON: Earlier on same date at 0945 hours. FINDINGS: No apparent mass or mass effect, hemorrhage, midline shift or hydrocephalus. No evidence of acute cortical infarct. No abnormal, extra-axial fluid or air collection. Patchy low density in the periventricular and subcortical white matter is nonspecific, but may relate to chronic small vessel ischemic change. Probable old lacunar infarct changes again noted in and left caudate nucleus head. Mild, diffuse volume loss. Osseous calvarium grossly intact. IMPRESSION: 1. No acute intracranial findings. 2. Probable chronic ischemic and atrophic changes. Report Dictated on --- Final --- Dictated: 05/30/2022 5:06 pm Dictating Physician: MD OCHOA WENDELL SignedDate and Time: 05/30/2022 5:10 pm Signed by: MD OCHOA WENDELL Transcribed Date and Time: 05/30/2022 5:06 CT HEAD WO CONTRAST Result Date: 05/30/2022 Patient Name: ANDRE BLANCA Computed Tomography ACCESSION EXAM DATE/TIME PROCEDURE ORDERING PROVIDER [id number] 05/30/2022 09:[address] Head or Brain w/o [id number], LAURA Contrast CPT code 91482 Reason For Exam (CT Head or Brain w/o Contrast) trauma Report CT HEAD WITHOUT CONTRAST: INDICATION: Cough COMPARISON: None. Unenhanced CT images of the head from skull base to vertex were obtained. The images are reviewed in the axial, sagittal and coronal planes. The ventricles and sulci are enlarged, consistent with atrophy. Focal and confluent areas oflow-attenuation are noted within the subcortical and periventricular white matter suggesting chronic ischemia. There is no evidence of hemorrhage, mass or large acute infarct. A remote lacunar infarct is seen on the left near the caudate nucleus head. Additional focal areas of low-attenuation are seen involving the dionisio. There is no mass or significant shift of the midline structures. There are no extraaxial or posterior fossa masses or fluid collections. The hypothalamic and parasellar regionsare unremarkable. There is mild mucosal thickening of the right maxillary sinus. IMPRESSION: No acute intracranial process. Multifocal remote infarcts.. Report Dictated on --- Final --- Dictated: 05/30/2022 10:49 am Dictating Physician: DO MCGUIRE ALFRED Signed Dateand Time: 05/30/2022 10:56 am Signed by: DO MCGUIRE ALFRED Transcribed Date and Time: 05/30/2022 10:49 CT CERVICAL SPINE WO CONTRAST Result Date: 05/30/2022 Patient Name: ANDRE BLANCA Computed Tomography ACCESSION EXAM DATE/TIME PROCEDURE ORDERING PROVIDER [id number] 05/30/2022 09:[address] Spine Cervical w/o [id number] -CAYLA MADRIGAL Contrast CPT code 31521 Reason For Exam (CT Spine Cervical w/o Contrast) trauma Report CT CERVICAL SPINE WITHOUT CONTRAST: INDICATION: Neck pain after trauma COMPARISON: None. Axial scans of the cervical spine performed from the skull base to the thoracic inlet, with sagittal andcoronal reconstructions. On the sagittal reconstruction images, the anatomic alignment of the vertebral bodies is normal. There is no evidence of fracture or subluxation in the cervical spine. Disc sp jerardo narrowing and marginal spurring is noted at C6-C7 with mild bilateral foraminal encroachment. The prevertebral soft-tissues are normal. The craniocervical junction and C1-2 junction appear normal. The odontoid is intact. IMPRESSION: Arthritic changes. No acute process. Report Dictated on Worksta tion: [id number] --- Final --- Dictated: 05/30/2022 10:58 am Dictating Physician: DO MCGUIRE ALFRED Signed Date and Time: 05/30/2022 11:00 am Signed by: DO MCGUIRE ALFRED Transcribed Date and Time: 05/30/2022 10:58 XR Tibia Fibula Bilateral Result Date: 05/30/2022 Patient Name: ANDRE BLANCA Diagnostic Radiology ACCESSION EXAMDATE/TIME PROCEDURE ORDERING PROVIDER [id number] 05/30/2022 19:27 EDT CR Tibia/Fibula 2 Views MD FARAZ, ERLINDA Bilateral CPT code 94853 Reason For Exam (CR Tibia/Fibula 2 Views Bilateral) Bilateral leg pain Report EXAMINATION: Bilateral tibia and fibula CLINICAL INDICATION: Bilateral leg pain TECHNIQUE: AP and lateral radiographs of the bilateral tibia/fibula COMPARISON: None FINDINGS: No fracture or dislocation. Degenerative changes are present in the bilateral knees, greater on the right.No soft tissue swelling. Report Dictated on --- Final --- Dictated: 05/30/2022 7:12 pm Dictating Physician: MD HICKS NICHOLAS Signed Date and Time: 05/30/2022 7:15 pm Signed by: MD HICKS NICHOLAS Transcribed Date and Time: 05/30/2022 7:12 XR CHEST PORTABLE Result Date: 05/30/2022 [id number] ACCESSION EXAMDATE/TIME PROCEDURE ORDERING PROVIDER [id number] 05/30/2022 10:36 EDT CR Chest Portable [id number] -LALIT PICHARDO CPT code 44387 Reason For Exam (CR Chest Portable) fall, left shoulder pain Report APCHEST X- RAY CLINICAL INDICATION: fall, left shoulder pain TECHNIQUE: AP portable x-ray of the chest. COMPARISON: None FINDINGS: Heart/Mediastinum: Prominence of the superior mediastinum is most likely from rightward patient rotation. Heart size is within normal limits. Lungs: Low lung volumes. No definite airspace consolidation or pleural effusion. Bones: No displaced fractures. Degenerative endplate spurring is present throughout the mid and lower aspects of the thoracic spine. IMPRESSION: No evidence of an acute cardiopulmonary abnormality. Report Dictated on --- Final --- Dictated: 05/30/2022 10:29 am Dictating Physician: MD IGLESIAS THOMAS Signed Date and Time: 05/30/2022 10:31 am Signed by: MD IGLESIAS THOMAS Transcribed Date and Time: 05/30/2022 10:29 XR Shoulder Left 2 VW Result Date: 05/30/2022 [id number] Radiology ACCESSION EXAMDATE/TIME PROCEDURE ORDERING PROVIDER [id number] 05/30/2022 10:17 EDT CR Shoulder 2+ Views [id number] -MARGARET CUEVAS Left CPT code 16764 Reason For Exam (CR Shoulder 2+ Views Left) fall, left shoulder pain Report EXAMINATION: CR Shoulder 2+ Views Left CLINICAL HISTORY: fall, left shoulder pain COMPARISON: None TECHNIQUE: Grashey, axillary, and transscapular views of the left shoulder FINDINGS: The patient is status post 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 There is mild heterotopic ossification adjacent to the glenoid prosthesis. The acromioclavicular joint is intact. No left rib fractures are identified. No osseous lesions are seen. IMPRESSION: 1. No periprosthetic fracture of the left shoulder. Report Dictated on --- Final --- Dictated: 05/30/2022 10:28 am Dictating Physician: MD IGLESIAS THOMAS Signed Date and Time: 05/30/2022 10:29 am Signed by: MD IGLESIAS THOMAS Transcribed Date and Time: 05/30/2022 10:28 XR PELVIS (1-2 VW) Result Date: 05/30/2022 Patient Name: ANDRE BLANCA Diagnostic Radiology ACCESSION EXAMDATE/TIME PROCEDURE ORDERING PROVIDER [id number] 05/30/2022 10:36 EDT CR Pelvis 1 or 2 Views [id number] LALIT AVENDAÑO CPT code 15846 Reason For Exam (CR Pelvis 1 or 2 Views) fall, left hip pain Report LEFT FEMUR PELVIS CLINICAL INDICATION: Pain left leg pain s/p fall AP and lateral plain film views of the left femur were obtained. AP radiograph the pelvis. COMPARISON: None FINDINGS: There is an acute transcervical fracture of the left femoral neck with mild anterior angulation of the fracture apex. No other acute fractures of the left femur or pelvis are identified. IMPRESSION: Acute left fem oral neck fracture. Report Dictated on --- Final --- Dictated: 05/30/2022 10:24 am Dictating Physician: MD IGLESIAS THOMAS Signed Date and Time: 05/30/2022 10:28 am Signed by: MD IGLESIAS THOMAS Transcribed Date and Time: 05/30/2022 10:24 Patient Active Problem List Diagnosis Fall at home, initial encounter Closed displaced fracture of left femoral neck (HCC) Closed fracture of left olecranon process Syncope Acute traumatic pain ASSESSMENT: 71y F S/P fall with Left femoral neck fx and left olecranon fx PLAN: Neuro/Spine: - Pain: Scheduled tylenol, robaxin, prn oxy/dilaudid. - Hx fibromyalgia: home Lyrica - Hx bipolar/depression - Home meds: buspirone, risperidone, Effexor, trazodone, carbamazepine - Melatonin nightly - Palliative/Geriatrics consult - CT head X 2 negative HEENT: - No concerns Cardiovascular: - Hx of syncope/orthostasis - Home meds: florinef, midodrine - Orthostatic vitals pending - ECHO 01/04: EF 65% - Hx HLD: home Pravachol Pulmonary: - IS, cough and deep breathe FEN/GI: - Regular diet after OR - NPO, LR@ 75ml/hour - Bowel regimen - Nausea: Reglan every 6 hours, prn zofran - Hx GERD: home protonix : - CrCl: 92 Heme: - Hgb: 10.9, monitor ID: - No concerns Endo: - Home synthroid Lines/Devices: - PIV - [facility] Prophylaxis: DVT: None Has DVT PPX been started? No If no, why? Plan for OR today GI: protonix Pressure Ulcer: None, turn q 2 hours Musculoskeletal: - Left olecranon fx - Left femoral neck fx - Ortho consulted - OR today WB Status: RUE:AT LUE: NWB RLE: AT LLE: NWB Is the patient in restraints?: no Medications Reconciled- Yes [x] NO [], why Disposition: Continue H6 care, to OR today with ortho, geriatrics/palliative consult Associated attestation - Cayla Madrigal MD - 05/31/2022 12:52 PM EDT ATTENDING ADDENDUM Active Diagnoses/Problems this Admission: Hospital Problems Last Modified POA Fall at home, initial encounter 05/30/2022 Yes Closed displaced fracture of left femoral neck (HCC) 05/30/2022 Yes Closed fracture of left olecranon process 05/30/2022 Yes Syncope 05/30/2022 Yes Acute traumatic pain 05/30/2022 Yes At risk for delirium 05/31/2022 Yes Polypharmacy 05/31/2022 Yes I personally supervised the MANAGER PROJECT/ANALISA in the evaluation and development of a treatment plan for this patient on the same day of service as above. I personally discussed the review of systems and interviewed the patient along with performing a physical examination. I reviewed the recent events, imaging, labs, vital signs. In addition, I discussed the patient's condition and treatment options with him/her when possible. I have also reviewed and agree with the past medical, family, and social history unless otherwise noted. All of the patient's questions were answered and family updated when appropriate and possible. A complete review of systems was obtained and is negative except as stated in HPI and/or SubjectiveSection. 71F with known orthostatic syncope who presented yesterday after a syncopal fall at her nursing facility resulting in L olecranon fracture and L femoral neck fracture. Hemodynamically normal overnight, remains on baseline 3L O2 nasal cannula. AM labs all wnl. EKG on admission appeared unchanged from prior, recent ECHO in December showed EF 65%. Holding Plavix for OR. Medically optimized for OR today with Ortho. Appreciate Geriatrics evaluation. - Will recheck orthostatics and consider increasing fludrocortisone to (0.1mg) BID - regarding polypharmacy: - holding dicyclomine; - changed carbamazepine ER BID to IR TID; will check carbamezapine level Thurs - albuterol nebs q6h PRN added; - venlafaxine dose decreased to 37.5mg daily; - metoclopramide dose decreased to 5mg BID Plan for OR today with Ortho for ORIF of L olecranon and L blanca-arthroplasty Greater than 51% of the >= 30 minute total care time throughout the day (including chart review,care coordination, and [id number] encounter) was spent discussing/counseling the patient/family regarding the care plan for Andre Blanca. I examined the patient independently and reviewed relevant data myself and may have done so in the context of team rounds. A full chart review was performed. Cayla Madrigal MD Division of Trauma Department of Surgery [facility] Pager: [phone] * Radha Moon APRN - ML - 05/30/2022 12:59 PM EDT At patient bedside. No c-spine tenderness upon palpation, no numbness or tingling in extremities, full ROM without pain. C-collar cleared as per [facility] Tra[facility] guidelines. documented in this encounterSUMMA Work Phone: [phone]) 717-535210-23-2022 Note Attestation signed by Cayla Madrigal MD at 06/05/2022 2:47 PM ATTENDING ADDENDUM Active Diagnoses/Problems this Admission: Hospital Problems Last Modified POA Fall at home, initial encounter 05/30/2022 Yes Closed displaced fracture of left femoral neck (HCC) 05/30/2022 Yes Closed fracture of left olecranon process 05/30/2022 Yes Syncope 05/30/2022 Yes Acute traumatic pain 05/30/2022 Yes At risk for delirium 05/31/2022 Yes Polypharmacy 05/31/2022 Yes Palliative care encounter 05/31/2022 Yes Goals of care, counseling/discussion 05/31/2022 Yes Acute encephalopathy 06/01/2022 Yes Vitamin D deficiency 06/02/2022 Yes Hypoxia 06/05/2022 Yes I personally supervised the FREDERICK/ANALISA in the evaluation and development of a treatment plan for this patient on the same day of service as above. I personally discussed the review of systems and interviewed the patient along with performing a physical examination. I reviewed the recent events, imaging, labs, vital signs. In addition, I discussed the patient's condition and treatment options with him/her when possible. I have also reviewed and agree with the past medical, family, and social history unless otherwise noted. All of the patient's questions were answered and family updated when appropriate and possible. Stable for discharge to [facility]. Cayla Madrigal MD Division of Trauma Department of Surgery [facility] Pager: [phone] Department of Trauma / Critical Care Discharge Summary Name: Andre Blanca Date: 06/05/2022 12:06 PM : 1950 Age/Sex: 71 y.o. female Admit Date: 05/30/2022 Discharge Date: 06/05/2022 Attending: Cayla Madrigal MD Discharge Diagnosis: 1. Closed displaced fracture of left femoral neck (HCC) 2. Syncope and collapse 3. Acute pain of left shoulder 4. Left hip pain 5. Acute traumatic pain 6. Fall at home, initial encounter Patient Active Problem List Diagnosis Fall at home, initial encounter Closed displaced fracture of left femoral neck (HCC) Closed fracture of left olecranon process Syncope Acute traumatic pain At risk for delirium Polypharmacy Palliative care encounter Goals of care, counseling/discussion Acute encephalopathy Vitamin D deficiency Hypoxia Body mass index is 30.54 kg/m?. BMI Classification: Obese (BMI 30.0-39.9) Reason for Hospitalization: The patient was admitted for fall. Hospital Course (Care, treatment and services provided): Please see H&P and prior notes for more detailed summary of previous investigations and clinical assessment prior to this admission. Brief HPI 71 y.o. female status post unwitnessed fall at her ECF. The incident happened at an unknown time. When the event happened the patient states she blacked out and woke up on the floor of her room. She started to scream and cry when she awoke and states another resident called for help. INJURIES: Left femoral neck fx Left olecranon fx Hospital course: Ms. Blanca was admitted to the floor following a fall with the above noted injuries. She was taken to OR with ortho on 05/31 for left femoral endoprosthetic replacement and 06/01 for ORIF left olecranon. Postoperatively pain was well controlled. Syncope workup negative. PT recommended SNF. Dispo planning started and she was able to be discharged to [facility] on 06/05 in good condition. Consultations: IP CONSULT TO ORTHOPEDIC SURGERY IP CONSULT TO GERIATRICS IP CONSULT TO PALLIATIVE CARE PCP: Kianna Izquierdo MD Recommended Follow-ups: Schedule an appointment with Dr. Neto Jacobsen MD as soon as possible for a visit in 2 week(s) Specialty: Orthopedic Surgery Post operative follow up [address] [facility] [address] [facility] [address] Schedule an appointment with [facility] as soon as possible for a visit in 2 week(s) Specialty: Trauma Surgery [address] [place] [address] [facility] [address] Treatments and Procedures with outcomes: Labs: Data Review Data CBC with Differential: Lab Results Component Value Date/Time WBC 10.3 06/03/2022 12:57 PM RBC 2.95 06/03/2022 12:57 PM HGB 8.3 06/03/2022 12:57 PM HCT 25.4 06/03/2022 12:57 PM PLT 249 06/03/2022 12:57 PM CMP: Lab Results Component Value Date/Time NA 138 06/03/2022 12:57 PM K 3.5 06/03/2022 12:57 PM CL 101 06/03/2022 12:57 PM CO2 35 06/03/2022 12:57 PM BUN 14 06/03/2022 12:57 PM CREATININE 0.66 06/03/2022 12:57 PM GLUCOSE 145 06/03/2022 12:57 PM CALCIUM 8.2 06/03/2022 12:57 PM BMP: Hepatic Function Panel: Ionized Calcium: No results found for: IONCA Magnesium: No results found for: MG Phosphorus: No results found for: PHOS PT/INR: Lab Results Component Value Date/Time PROTIME 10.7 05/30/2022 09:38 AM INR 1.0 (more content not included)...[facility]10-23-2022 Hospital course Narrative* FREDERICK Meeks NP - 06/05/2022 12:05 PM EDT Images from the original note were not included. Department of Trauma / Critical Care Discharge Summary Name: Andre Blanca Date: 06/05/2022 12:06 PM : 1950 Age/Sex: 71 y.o. female Admit Date: 05/30/2022 Discharge Date: 06/05/2022 Attending: Cayla Madrigal MD Discharge Diagnosis: 1. Closed displaced fracture of left femoral neck (HCC) 2. Syncope and collapse 3. Acute pain of left shoulder 4. Left hip pain 5. Acute traumatic pain 6. Fall at home, initial encounter Patient Active Problem List Diagnosis Fall at home, initial encounter Closed displaced fracture of left femoral neck (HCC) Closed fracture of left olecranon process Syncope Acute traumatic pain At risk for delirium Polypharmacy Palliative care encounter Goals of care, counseling/discussion Acute encephalopathy Vitamin D deficiency Hypoxia Body mass index is 30.54 kg/m . BMI Classification: Obese (BMI 30.0-39.9) Reason for Hospitalization: The patient was admitted for fall. Hospital Course (Care, treatment and services provided): Please see H&P and prior notes for more detailed summary of previous investigations and clinical assessment prior to this admission. Brief HPI 71 y.o. female status post unwitnessed fall at her F. The incident happened at an unknown time. When the event happened the patient states she blacked out and woke up on the floor of her room. She started to scream and cry when she awoke and states another resident called for help. INJURIES: Left femoral neck fx Left olecranon fx Hospital course: Ms. Blanca was admitted to the floor following a fall with the above noted injuries. She was taken to OR with ortho on 05/31 for left femoral endoprosthetic replacement and 06/01 for ORIF left olecranon. Postoperatively pain was well controlled. Syncope workup negative. PT recommended SNF. Dispo planning started and she was able to be discharged to [facility] on 06/05 in good condition. Consultations: IP CONSULT TO ORTHOPEDIC SURGERY IP CONSULT TO GERIATRICS IP CONSULT TO PALLIATIVE CARE PCP: Kianna Izquierdo MD Recommended Follow-ups: Schedule an appointment with Dr. Neto Jacobsen MD as soon as possible for a visit in 2 week(s) Specialty: Orthopedic Surgery Post operative follow up [address] [facility] [address] [facility] [address] [address] [facility] Trauma as soon as possible for a visit in 2 week(s) Specialty: Trauma Surgery [address] [facility] [address] [facility] [id number] Treatments and Procedures with outcomes: Labs: Data Review Data CBC with Differential: Lab Results Component Value Date/Time WBC 10.3 06/03/2022 12:57 PM RBC 2.95 06/03/2022 12:57 PM HGB 8.3 06/03/2022 12:57 PM HCT 25.4 06/03/2022 12:57 PM PLT 249 06/03/2022 12:57 PM CMP: Lab Results Component Value Date/Time NA 138 06/03/2022 12:57 PM K 3.5 06/03/2022 12:57 PM CL 101 06/03/2022 12:57 PM CO2 35 06/03/2022 12:57 PM BUN 14 06/03/2022 12:57 PM CREATININE 0.66 06/03/2022 12:57 PM GLUCOSE 145 06/03/2022 12:57 PM CALCIUM 8.2 06/03/2022 12:57 PM BMP: Hepatic Function Panel: Ionized Calcium: No results found for: IONCA Magnesium: No results found for: MG Phosphorus: No results found for: PHOS PT/INR: Lab Results Component Value Date/Time PROTIME 10.7 05/30/2022 09:38 AM INR 1.0 05/30/2022 09:38 AM PTT: Lab Results Component Value Date/Time APTT 27.1 05/30/2022 09:38 AM [APTT Last 3 Troponin: Lab Results Component Value Date/Time TROPONINI <0.012 05/30/2022 09:38 AM Urine Culture: No components found for: CURINE Blood Culture: No components found for: CBLOOD, CFUNGUSBL Blood Culture from Central Line: No components found for: CBLOODLN Stool Culture: No components found for: CSTOOL Sputum Culture: No components found for: CSPUTUM Sputum Culture for AFB: No components found for: CAFBSM Wound Culture: NA Procedures: - left femoral endoprosthetic replacement 05/31 - ORIFof left olecranon fracture 06/01 Significant Imaging Results: XR ELBOW LEFT (MIN 3 VIEWS) Result Date: 05/30/2022 Patient Name: ANDRE BLANCA Diagnostic Radiology ACCESSION EXAMDATE/TIME PROCEDURE ORDERING PROVIDER [id number] 05/30/2022 10:17 EDT CR Elbow 3+ Views Left [id number] GOMEZLEY CPT code 37371 Reason For Exam (CR Elbow 3+ Views Left) left elbow pain s/p fall Report LEFT ELBOW CLINICAL INDICATION: Pain after trauma left elbow pain s/p fall AP, lateral, andoblique plain film views of the left elbow were obtained. COMPARISON: None FINDINGS: There is an acute, mildly comminuted olecranon fracture of the humerus with mild proximal retraction of the major olecranon fracture fragment. Radiocapitellar alignment is maintained. Soft tissue swelling is present overlying the fracture. No fracture of the distal humerus or proximal radius is identified. IMPRESSION: Mildly displaced and mildly comminuted acute olecranon fracture. Report Dictated on --- Final --- Dictated: 05/30/2022 10:22 am Dictating Physician: MD IGLESIAS THOMAS Signed Date and Time: 05/30/2022 10:24 am Signed by: MD IGLESIAS THOMAS Transcribed Date and Time: 05/30/2022 10:22 XR FEMUR LEFT (MIN 2 VIEWS) Result Date: 05/30/2022 Patient Name: ANDRE BLANCA Diagnostic Radiology ACCESSION EXAMDATE/TIME PROCEDURE ORDERING PROVIDER [id number] 05/30/2022 10:17 EDT CR Femur 2+ Views Left n [id number] -CUEVAS MARGARET CPT code 48365 Reason For Exam (CR Femur 2+ Views Left n) left leg pain s/p fall Report LEFT FEMUR PELVIS CLINICAL INDICATION: Pain left leg pain s/p fall AP and lateral plain film views of the left femur were obtained. AP radiograph the pelvis. COMPARISON: None FINDINGS: There is an acute transcervical fracture of the left femoral neck with mild anterior angulation of the fracture apex. No other acute fractures of the left femur or pelvis are identified. IMPRESSION: Acuteleft femoral neck fracture. Report Dictated on --- Final --- Dictated: 05/30/2022 10:24 am Dictating Physician: MD IGLESIAS THOMAS Signed Date and Time: 05/30/2022 10:28 am Signed by: MD IGLESAIS THOMAS Transcribed Date and Time: 05/30/2022 10:24 XR FOOT LEFT (MIN 3 VIEWS) Result Date: 05/31/2022 [id number] ACCESSION EXAMDATE/TIME PROCEDURE ORDERING PROVIDER [id number] 05/31/2022 23:52 EDT CR Foot Complete 3+ [id number], Views Left KORTNIE CPT code 98788 Reason For Exam (CR Foot Complete 3+ Views Left) toe bruising Report LEFT FOOT 3 VIEWS CLINICAL INDICATION: toe bruising TECHNIQUE: 3 views of the leftfoot. COMPARISON: None. FINDINGS: Diffuse osteopenia. Slight cortical irregularity in the distal lateral aspect of little toe proximal phalanx. Probable old fracture deformity in great toe metatarsal. No dislocation. Degenerative change in the great toe MTP joint and less severe degenerative changescattered in the other IP joints. Soft tissues grossly unremarkable. IMPRESSION: 1. Findings suspicious for small and nondisplaced fracture in the distal aspect of little toe proximal phalanx. Correlate clinically. 2. Degenerative change. Report Dictated on --- Final --- Dictated: 05/31/2022 11:51 pm Dictating Physician: MD OCHOA WENDELL Signed Date and Time: 05/31/2022 11:54 pm Signed by: MD OCHOA WENDELL Transcribed Date and Time: 05/31/2022 11:51 CT head without contrast Result Date: 05/30/2022 Patient Name: ANDRE BLANCA Computed Tomography ACCESSION EXAM DATE/TIME PROCEDURE ORDERING PROVIDER [id number] 05/30/2022 16:[address] Head or Brain w/o [id number], RADHA Contrast CPT code 21073 Reason For Exam (CT Head or Brain w/o Contrast) fall on plavix Report CT BRAIN WITHOUT CONTRAST CLINICAL INDICATION: fall on plavix TECHNIQUE: CT scan of the brain without IV contrast. Multiplanar reformations. COMPARISON: Earlier on same date at 0945 hours. FINDINGS: No apparent mass or mass effect, hemorrhage, midline shift or hydrocephalus. No evidence of acute cortical infarct. No abnormal, extra-axial fluid or air collection. Patchy low density in the periventricular and subcortical white matter is nonspecific, but may relate to chronic small vessel ischemic change. Probable old lacunar infarct changes again noted in and left caudate nucleus head. Mild, diffuse volume loss. Osseous calvarium grossly intact. IMPRESSION: 1. No acute intracranial findings. 2. Probable chronic ischemic and atrophic changes. Report Dictated on --- Final --- Dictated: 05/30/2022 5:06 pm Dictating Physician: MD OCHOA WENDELL SignedDate and Time: 05/30/2022 5:10 pm Signed by: MD OCHOA WENDELL Transcribed Date and Time: 05/30/2022 5:06 CT HEAD WO CONTRAST Result Date: 05/30/2022 [id number] ACCESSION EXAM DATE/TIME PROCEDURE ORDERING PROVIDER [id number] 05/30/2022 09:[address] Head or Brain w/o [id number], LAURA Contrast CPT code 42209 Reason For Exam (CT Head or Brain w/o Contrast) trauma Report CT HEAD WITHOUT CONTRAST: INDICATION: Cough COMPARISON: None. Unenhanced CT images of the head from skull base to vertex were obtained. The images are reviewed in the axial, sagittal and coronal planes. The ventricles and sulci are enlarged, consistent with atrophy. Focal and confluent areas oflow-attenuation are noted within the subcortical and periventricular white matter suggesting chronic ischemia. There is no evidence of hemorrhage, mass or large acute infarct. A remote lacunar infarct is seen on the left near the caudate nucleus head. Additional focal areas of low-attenuation are seen involving the dionisio. There is no mass or significant shift of the midline structures. There are no extraaxial or posterior fossa masses or fluid collections. The hypothalamic and parasellar regionsare unremarkable. There is mild mucosal thickening of the right maxillary sinus. IMPRESSION: No acute intracranial process. Multifocal remote infarcts.. Report Dictated on --- Final --- Dictated: 05/30/2022 10:49 am Dictating Physician: DO MCGUIRE ALFRED Signed Dateand Time: 05/30/2022 10:56 am Signed by: DO MCGUIRE ALFRED Transcribed Date and Time: 05/30/2022 10:49 CT CERVICAL SPINE WO CONTRAST Result Date: 05/30/2022 [id number] Comput[facility] Tomography ACCESSION EXAM DATE/TIME PROCEDURE ORDERING PROVIDER [id number] 05/30/2022 09:[address] Spine Cervical w/o [id number] -CAYLA MADRIGAL Contrast CPT code 59601 Reason For Exam (CT Spine Cervical w/o Contrast) trauma Report CT CERVICAL SPINE WITHOUT CONTRAST: INDICATION: Neck pain after trauma COMPARISON: None. Axial scans of the cervical spine performed from the skull base to the thoracic inlet, with sagittal andcoronal reconstructions. On the sagittal reconstruction images, the anatomic alignment of the vertebral bodies is normal. There is no evidence of fracture or subluxation in the cervical spine. Disc sp jerardo narrowing and marginal spurring is noted at C6-C7 with mild bilateral foraminal encroachment. The prevertebral soft-tissues are normal. The craniocervical junction and C1-2 junction appear normal. The odontoid is intact. IMPRESSION: Arthritic changes. No acute process. Report Dictated on Worksta tion: [id number] --- Final --- Dictated: 05/30/2022 10:58 am Dictating Physician: DO MCGUIER ALFRED Signed Date and Time: 05/30/2022 11:00 am Signed by: DO MCGUIRE ALFRED Transcribed Date and Time: 05/30/2022 10:58 XR Tibia Fibula Bilateral Result Date: 05/30/2022 Patient Name: ANDRE BLANCA Diagnostic Radiology ACCESSION EXAMDATE/TIME PROCEDURE ORDERING PROVIDER [id number] 05/30/2022 19:27 EDT CR Tibia/Fibula 2 Views MD RUTH BLAKE Bilateral CPT code 45084 Reason For Exam (CR Tibia/Fibula 2 Views Bilateral) Bilateral leg pain Report EXAMINATION: Bilateral tibia and fibula CLINICAL INDICATION: Bilateral leg pain TECHNIQUE: AP and lateral radiographs of the bilateral tibia/fibula COMPARISON: None FINDINGS: No fracture or dislocation. Degenerative changes are present in the bilateral knees, greater on the right.No soft tissue swelling. Report Dictated on --- Final --- Dictated: 05/30/2022 7:12 pm Dictating Physician: MD HICKS NICHOLAS Signed Date and Time: 05/30/2022 7:15 pm Signed by: MD HICKS NICHOLAS Transcribed Date and Time: 05/30/2022 7:12 XR CHEST PORTABLE Result Date: 05/30/2022 [id number]iology ACCESSION EXAMDATE/TIME PROCEDURE ORDERING PROVIDER [id number] 05/30/2022 10:36 EDT CR Chest Portable [id number] -LALIT PICHARDO CPT code 95893 Reason For Exam (CR Chest Portable) fall, left shoulder pain Report APCHEST X- RAY CLINICAL INDICATION: fall, left shoulder pain TECHNIQUE: AP portable x-ray of the chest. COMPARISON: None FINDINGS: Heart/Mediastinum: Prominence of the superior mediastinum is most likely from rightward patient rotation. Heart size is within normal limits. Lungs: Low lung volumes. No definite airspace consolidation or pleural effusion. Bones: No displaced fractures. Degenerative endplate spurring is present throughout the mid and lower aspects of the thoracic spine. IMPRESSION: No evidence of an acute cardiopulmonary abnormality. Report Dictated on --- Final --- Dictated: 05/30/2022 10:29 am Dictating Physician: MD IGLESIAS THOMAS Signed Date and Time: 05/30/2022 10:31 am Signed by: MD IGLESIAS THOMAS Transcribed Date and Time: 05/30/2022 10:29 VL DUP LOWER EXTREMITY VENOUS BILATERAL Result Date: 06/02/2022 [facility] Lower Extremity Venous Duplex Report Patient [place] : 1950 Study 06/02/20 Name: Andre (71yrs) Date: Age: 71 Account: [id number] Gender: F Loc: 6118 BP: Ordering Physician: Radha Moon Boiler/Chiller Technician: Liliana Mejia RVT Interpreting Physician: Kwesi Gooden MD Location: [facility] Indications: Lower extremity pain and swelling status post left hip and leg trauma on prolonged bedrest. Conclus ions 1. There is no evidence of acute deep or superficial venous thrombosis noted in the right lower extremity. 2. There is no evidence of acute deep or superficial venous thrombosis noted in the left lower extremity. History: Risk factors: Obese. Immobility. Age over 65 years. Study data: Complete lower extremity venous duplex evaluation. Grayscale 2D imaging, color Doppler imaging, and spectral Doppler analysis. Location: Vascular laboratory. Procedure: A vascular evaluation was performed with the patient in the supine position. Images were obtained using a [employer] vascular ultrasound machine. Venous flow and imaging: + +-------+ + + +Location +Overall+Properties +Comments + + +-------+------- + + +R CFV +Patent +Normal phasicity; + + + + +spontaneous; normal + + + + +augmentation; + + + + +compressible + + + +-------+----- + + +R saphenofemoral +Patent +Compressible + ++junction + + + + + +-------+ + + +R profunda femoral +Patent + + + + +-------+ + + +R FV - prox. +Patent +Compressible + + +------- +-------+ + + +R FV - mid +Patent +Normal phasicity; + + + + +spontaneous; normal + + + + +augmentation; + + + + +compressible + + + +-------+ + + +R FV - distal +Patent +Compressible + + + +-------+ + + +R popliteal +Patent +Normal phasicity; + + + + +spontaneous; normal + + + + +augmentation; + + + + +compressible + + + +-------+ + + +R gastrocnemius +Patent +Compressible + + + +-------+ + + +R PTV +Patent +Compressible + + +----- +-------+ + + +R peroneal +Patent +Compressible+ + + +-------+ + + +R diane eal +Patent +Compressible + + + +-------+ + + +R GSV +Patent +Compressible + + + +-------+ + + +L CFV +Patent +Normal phasicity; + + + + +spontaneous; normal + + + + +augmentation; + + + + +compressible + + + +------ -+ + + +L saphenofemoral +Patent +Compressible + + +junction + + + + + +-------+ + + +L profunda femoral +Patent + + + + +-------+ + + +L FV - prox. +Patent +Compressible + + + +-------+ + + +L FV - mid +Patent +Normal phasicity; + + + + +spontaneous; normal + + + + +augmentation; + + + + +compressible + + + +-------+ + + +L FV - distal +Patent +Compressible + + + +-------+ + + +L popliteal +Patent +Normal phasicity; + + + + +spontaneous; normal + ++ + +augmentation; + + + + +compressible + + + +-------+ + + +L gastrocnemius +Patent +Compressible + + + +- ------+ + + +L PTV +-------+ +Unable to ++ + + +adequately + + + + +visualize veins in + + + + +the left calf due + + + + +to swelling and ++ + + +recent injury. + + +-------+ + + +L GSV +Patent +Compressible + + + +-------+ + + Prepared and electronically signed by Kwesi Gooden MD 06/02/2022 13:41 XR Shoulder Left 2 VW Result Date: 05/30/2022 Patient Name: ANDRE BLANCA Diagnostic Radiology ACCESSION EXAMDATE/TIME PROCEDURE ORDERING PROVIDER [id number] 05/30/2022 10:17 EDT CR Shoulder 2+ Views [id number] -CUEVAS MARGARET Left CPT code 86816 Reason For Exam (CR Shoulder 2+ Views Left) fall, left shoulder pain Report EXAMINATION: CR Shoulder 2+ Views Left CLINICAL HISTORY: fall, left shoulder pain COMPARISON: None TECHNIQUE: Grashey, axillary, and transscapular views of the left shoulder FINDINGS: The patient is status post 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 There is mild heterotopic ossification adjacent to the glenoid prosthesis. The acromioclavicular joint is intact. No left rib fractures are identified. No osseous lesions are seen. IMPRESSION: 1. No periprosthetic fracture of the left shoulder. Report Dictated on --- Final --- Dictated: 05/30/2022 10:28 am Dictating Physician: MD IGLESIAS THOMAS Signed Date and Time: 05/30/2022 10:29 am Signed by: MD IGLESIAS THOMAS Transcribed Date and Time: 05/30/2022 10:28 XR PELVIS (1-2 VW) Result Date: 05/31/2022 Patient Name: ANDRE BLANCA Diagnostic Radiology ACCESSION EXAMDATE/TIME PROCEDURE ORDERING PROVIDER [id number] 05/31/2022 20:59 EDT CR Pelvis 1 or 2 Views [id number] -GILLIAN SYKES CPT code 83019 Reason For Exam (CR Pelvis 1 or 2 Views) Low AP pelvis s/p L hip blanca, please include entire implant Report AP PELVIS CLINICAL INDICATION: Status post left hiparthroplasty A single AP view of the pelvis was obtained. COMPARISON: 05/30/2022. FINDINGS: There has been placement of a left hip hemiarthroplasty. No fracture, dislocation, or loosening of the arthroplasty is identified. Scattered gas within soft tissues lateral to the left hip is consistent withrecent surgery. No fracture of the visualized portion of the bony pelvis is seen. There are mild degenerative changes of the right hip. IMPRESSION: Normal appearance of the patient's newly placed left hip hemiarthroplasty. Report Dictated on --- Final --- Dictated: 05/31/2022 8:53 pm Dictating Physician: MD RUBIN JONATHAN R Signed Date and Time: 05/31/2022 8:54 pm Signed by: MD RUBIN JONATHAN R Transcribed Date and Time: 05/31/2022 8:53 XR PELVIS (1-2 VW) Result Date: 05/30/2022 Patient Name: ANDRE BLANCA Diagnostic Radiology ACCESSION EXAMDATE/TIME PROCEDURE ORDERING PROVIDER [id number] 05/30/2022 10:36 EDT CR Pelvis 1 or 2 Views [id number] -LALIT PICHARDO CPT code 55025 Reason For Exam (CR Pelvis 1 or 2 Views) fall, left hip pain Report LEFT FEMUR PELVIS CLINICAL INDICATION: Pain left leg pain s/p fall AP and lateral plain film views of the left femur were obtained. AP radiograph the pelvis. COMPARISON: None FINDINGS: There is an acute transcervical fracture of the left femoral neck with mild anterior angulation of the fracture apex. No other acute fractures of the left femur or pelvis are identified. IMPRESSION: Acute left fem oral neck fracture. Report Dictated on --- Final --- Dictated: 05/30/2022 10:24 am Dictating Physician: MD IGLESIAS THOMAS Signed Date and Time: 05/30/2022 10:28 am Signed by: MD IGLESIAS THOMAS Transcribed Date and Time: 05/30/2022 10:24 Incidental Findings: None Pending Test Results and Tests to Obtain as Outpatient: None Disposition: She was discharged to correction Discharge Medications: She did have significant changes to their home medications (see below) Medication List START taking these medications carBAMazepine 200 MG tablet Commonly known as: TEGRETOL Take 1 tablet by mouth 3 times daily enoxaparin Sodium 30 MG/0.3ML injection Commonly known as: LOVENOX Inject 0.3 mLs into the skin 2 times daily oxyCODONE 5 MG immediate release tablet Commonly known as: ROXICODONE Take 1 tablet by mouth every 6 hours as needed for Pain for up to 7 days. Vitamin D (Ergocalciferol) 02959 units Caps Take 50,000 Units by mouth once a week Start taking on: June 10, 2022 CHANGE how you take these medications * bisacodyl 5 MG EC tablet Commonly known as: DULCOLAX What changed: Another medication with the same name was removed. Continue taking this medication, and follow the directions you see here. * bisacodyl 10 MG suppository Commonly known as: DULCOLAX What changed: Another medication with the same name was removed. Continue taking this medication, and follow the directions you see here. * This list has 2 medication(s) that are the same as other medications prescribed for you. Read thedirections carefully, and ask your doctor or other care provider to review them with you. CONTINUE taking these medications acetaminophen 325 MG tablet Commonly known as: TYLENOL Biotin 1000 MCG Tabs busPIRone 10 MG tablet Commonly known as: BUSPAR clopidogrel 75 MG tablet Commonly known as: PLAVIX fludrocortisone 0.1 MG tablet Commonly known as: FLORINEF levothyroxine 150 MCG tablet Commonly known as: SYNTHROID Lidocaine HCl 4 % Ptch magnesium hydroxide 400 MG/5ML suspension Commonly known as: MILK OF MAGNESIA Melatonin 10 MG Tabs midodrine 5 MG tablet Commonly known as: PROAMATINE ondansetron 4 MG disintegrating tablet Commonly known as: ZOFRAN-ODT pantoprazole 40 MG tablet Commonly known as: PROTONIX pravastatin 40 MG tablet Commonly known as: PRAVACHOL pregabalin 150 MG capsule Commonly known as: LYRICA risperiDONE 0.5 MG tablet Commonly known as: RISPERDAL traZODone 50 MG tablet Commonly known as: DESYREL venlafaxine 75 MG extended release tablet Ventolin HFA 108 (90 Base) MCG/ACT inhaler Generic drug: albuterol sulfate HFA STOP taking these medications dicyclomine 10 MG capsule Commonly known as: BENTYL loperamide 2 MG capsule Commonly known as: IMODIUM metoclopramide 5 MG tablet Commonly known as: REGLAN traMADol 50 MG tablet Commonly known as: ULTRAM Where to Get Your Medications You can get these medications from any pharmacy Bring a paper prescription for each of these medications oxyCODONE 5 MG immediate release tablet Information about where to get these medications is not yet available Ask your nurse or doctor about these medications carBAMazepine 200 MG tablet enoxaparin Sodium 30 MG/0.3ML injection Vitamin D (Ergocalciferol) 96062 units Caps Discharge Condition: Physical Exam at the time of discharge: Please refer to the "Progress note" on day of discharge for a detailed exam. At the time of discharge the patient is good. Discharge Instructions: Activity: NWB to LUE Diet: regular diet Discharge needs: Transport The patient's OARRS report was obtained and reviewed by myself on 06/05/2022. Discharge Instructions Provided: General Orthopedic Discharge Instructions The following instructions have been prepared to help you when you leave the hospital. These guidelines are for the post-surgery period. Activity: Ease into normal activity as tolerated. Weightbearing status: as tolerated with left leg, do not put any weight on your left arm Medications: see medication instructions. Please be sure to read and understand the information provided by your pharmacy. Ask your Pharmacist if any questions. Wound Care and Hygiene: -Wash hands before touching or changing dressings -Do Not touch incision -Leave dressing till post-op day 7 and reapply dressing if wound is leaking. If wound is dry, you may leave dressing off -May shower starting post-op day 3 -Keep left arm splint clean, dry, and intact until follow up Call Your Doctor for: -Excessive bleeding/swelling of incision -Fever with temperature above 101 F Anesthesia Precautions: -Do Not operate any vehicle (automobile, bicycle, motorcycle) or power tools for 24 hours -Do Not drink alcoholic beverages for 24 hours -As precaution to prevent post-operative nausea and vomiting, start your diet with liquids, then progress to light foods. If tolerated, resume normal diet. Additional Instructions: -Weight bearing status: Non weightbearing with left arm. No lifting, pushing, or pulling. Weightbearing as tolerate with left leg. Wear your post op shoe as needed for comfort for your left foot fracture. -Ok for finger range of motion -Posterior hip precautions x 6 weeks: Be careful with position of your left hip when transferring to wheelchair and when in wheelchair - do not put the hip in a position of flexion/adduction (meaninghaving the leg very close to the right leg) and internal rotation (meaning turning the leg so the toes face inward) -Keep arm splint clean, dry, and intact until follow up -Sling as needed for comfort -Ice/elevate extremity -Continue PT -Blood clot prevention: Take as prescribed by primary team. -Pain control: Alternate Tylenol and Ibuprofen every 4 hours. For example, take Tylenol at 7am and Ibuprofen at 11am. Then take Tylenol at 3pm and Ibuprofen at 7pm. Take Oxycodone for breakthrough pain only. Contact your surgeon's office (Dr. Jacobsen), to set up an appointment in 2 weeks, or if you have anyproblems or questions. Attestation: I spent 45 minutes on pt discharge. Associated attestation - Cayla Madrigal MD - 06/05/2022 2:47 PM EDT ATTENDING ADDENDUM Active Diagnoses/Problems this Admission: Hospital Problems Last Modified POA Fall at home, initial encounter 05/30/2022 Yes Closed displaced fracture of left femoral neck (HCC) 05/30/2022 Yes Closed fracture of left olecranon process 05/30/2022 Yes Syncope 05/30/2022 Yes Acute traumatic pain 05/30/2022 Yes At risk for delirium 05/31/2022 Yes Polypharmacy 05/31/2022 Yes Palliative care encounter 05/31/2022 Yes Goals of care, counseling/discussion 05/31/2022 Yes Acute encephalopathy 06/01/2022 Yes Vitamin D deficiency 06/02/2022 Yes Hypoxia 06/05/2022 Yes I personally supervised the MANAGER PROJECT/ANALISA in the evaluation and development of a treatment plan for this patient on the same day of service as above. I personally discussed the review of systems and interviewed the patient along with performing a physical examination. I reviewed the recent events, imaging, labs, vital signs. In addition, I discussed the patient's condition and treatment options with him/her when possible. I have also reviewed and agree with the past medical, family, and social history unless otherwise noted. All of the patient's questions were answered and family updated when appropriate and possible. Stable for discharge to SNF. Cayla Madrigal MD Division of Trauma Department of Surgery [facility] Pager: [phone] documented in this encounterSUMMA Work Phone: [phone] 157-970710-18-2022 Hospital Discharge instructions* Discharge Instructions* Earl Richardson PA-C - 05/31/2022 8:15 PM EDT Images from the original note were not included. General Orthopedic Discharge Instructions The following instructions have been prepared to help you when you leave the hospital. These guidelines are for the post-surgery period. Activity: Ease into normal activity as tolerated. Weightbearing status: as tolerated with left leg, do not put any weight on your left arm Medications: see medication instructions. Please be sure to read and understand the information provided by your pharmacy. Ask your Pharmacist if any questions. Wound Care and Hygiene: -Wash hands before touching or changing dressings -Do Not touch incision -Leave dressing till post-op day 7 and reapply dressing if wound is leaking. If wound is dry, you may leave dressing off -May shower starting post-op day 3 -Keep left arm splint clean, dry, and intact until follow up Call Your Doctor for: -Excessive bleeding/swelling of incision -Fever with temperature above 101 F Anesthesia Precautions: -Do Not operate any vehicle (automobile, bicycle, motorcycle) or power tools for 24 hours -Do Not drink alcoholic beverages for 24 hours -As precaution to prevent post-operative nausea and vomiting, start your diet with liquids, then progress to light foods. If tolerated, resume normal diet. Additional Instructions: -Weight bearing status: Non weightbearing with left arm. No lifting, pushing, or pulling. Weightbearing as tolerate with left leg. Wear your post op shoe as needed for comfort for your left foot fracture. -Ok for finger range of motion -Posterior hip precautions x 6 weeks: Be careful with position of your left hip when transferring to wheelchair and when in wheelchair - do not put the hip in a position of flexion/adduction (meaninghaving the leg very close to the right leg) and internal rotation (meaning turning the leg so the toes face inward) -Keep arm splint clean, dry, and intact until follow up -Sling as needed for comfort -Ice/elevate extremity -Continue PT -Blood clot prevention: Take as prescribed by primary team. -Pain control: Alternate Tylenol and Ibuprofen every 4 hours. For example, take Tylenol at 7am and Ibuprofen at 11am. Then take Tylenol at 3pm and Ibuprofen at 7pm. Take Oxycodone for breakthrough pain only. Contact your surgeon's office (Dr. Jacobsen), to set up an appointment in 2 weeks, or if you have anyproblems or questions. * Discharge Instr - ROSALIO* Gerardo Last RN - 06/03/2022 12:41 PM EDT Continuity of Care Form Patient Name: Andre Blanca : 1950 Admit date: 05/30/2022 Discharge date: Code Status Order: Full Code Advance Directives: Admitting Physician: Cayla Madrigal MD PCP: Kianna Izquierdo MD Discharging Nurse: Discharging Hospital Unit/Room#: 6118/[id number] Discharging Unit Phone Number: Emergency Contact: No emergency contact information on file. Past Surgical History: Past Surgical History: Procedure Laterality Date ARM SURGERY N/A CHOLECYSTECTOMY HYSTERECTOMY (CERVIX STATUS UNKNOWN) OTHER SURGICAL HISTORY 05/31/2022 Left femoral endoprosthetic replacement OTHER SURGICAL HISTORY Left 06/01/2022 ORIF left olecranon Immunization History: There is no immunization history on file for this patient. Active Problems: Patient Active Problem List Diagnosis Code Fall at home, initial encounter W19.XXXA, Y92.009 Closed displaced fracture of left femoral neck (HCC) S72.002A Closed fracture of left olecranon process S52.022A Syncope R55 Acute traumatic pain G89.11 At risk for delirium Z91.89 Polypharmacy Z79.899 Palliative care encounter Z51.5 Goals of care, counseling/discussion Z71.89 Acute encephalopathy G93.40 Vitamin D deficiency E55.9 Isolation/Infection: Isolation No Isolation Patient Infection Status None to display Nurse Assessment: Last Vital Signs: BP (!) 119/49 Pulse 85 Temp 99 F (37.2 C) (Temporal) Resp 18 Ht 5' 7" (1.702 m) Wt 195 lb (88.5 kg) SpO2 95% BMI 30.54 kg/m Last documented pain score (0-10 scale): Pain Level: 8 Last Weight: Wt Readings from Last 1 Encounters: 05/30/22 195 lb (88.5 kg) Mental Status: disoriented, oriented, and forgetfulness IV Access: - None Nursing Mobility/ADLs: Walking Assisted Transfer Assisted Bathing Assisted Dressing Assisted Toileting Dependent Feeding Independent Junction Maker Assisted Med Delivery whole Wound Care Documentation and Therapy: Incision 05/31/22 Hip Anterior;Left (Active) Dressing Status Clean;Dry;Intact 06/03/22 0803 Dressing/Treatment Silver dressing 06/03/22 08 Closure Other (Comment) 05/31/222139 Margins Other (Comment) 05/31/222139 Incision Assessment Other (Comment) 05/31/222139 Drainage Amount None 06/03/22 0803 Odor None 06/03/22 0803 Kanwal-incision Assessment Intact 06/03/22 0803 Number of days: 2 Incision 06/01/22 Elbow Anterior;Left (Active) Dressing Status Clean;Dry;Intact 06/03/22 0803 Dressing/Treatment Jerardo wrap;Splint 06/03/22 08 Drainage Amount None 06/03/22 08 Odor None 06/03/22 08 Kanwal-incision Assessment Intact 06/03/22 08 Number of days: 2 Elimination: Continence: Bowel: Yes Bladder: Yes Urinary Catheter: None Colostomy/Ileostomy/Ileal Conduit: No Date of Last BM: 06/05/22 Intake/Output Summary (Last 24 hours) at 06/03/2022 1240 Last data filed at 06/03/2022 0811 Gross per 24 hour Intake -- Output 2000 ml Net -2000 ml I/O last 3 completed shifts: In: - Out: 1800 [Urine:1800] Safety Concerns: None Impairments/Disabilities: None Nutrition Therapy: Current Nutrition Therapy: - Oral Diet: General Routes of Feeding: Oral Liquids: Thin Liquids Daily Fluid Restriction: no Last Modified Barium Swallow with Video (Video Swallowing Test): not done Treatments at the Time of Hospital Discharge: Respiratory Treatments: None Oxygen Therapy: Uses oxygen 3L at night only Ventilator: - No ventilator support Rehab Therapies: Physical Therapy and Occupational Therapy Weight Bearing Status/Restrictions: Partial weight bearing (30-50%) only on leg left leg Other Medical Equipment (for information only, NOT a DME order): walker and bedside commode Other Treatments: None Patient's personal belongings (please select all that are sent with patient): None RN SIGNATURE: CASE MANAGEMENT/SOCIAL WORK SECTION Inpatient Status Date: Readmission Risk Assessment Score: Readmission Risk Risk of Unplanned Readmission: 18 Discharging to Facility/ Agency Name: [facility] Address: [address] [place] [address] Fax: Dialysis Facility (if applicable) Name: Address: Dialysis Schedule: Phone: Fax: Global Account Director/Bean Snapper signature: PHYSICIAN SECTION Prognosis: Good Condition at Discharge: Stable Rehab Potential (if transferring to Rehab): Good Recommended Labs or Other Treatments After Discharge: None Physician Certification: I certify the above information and transfer of Andre Blanca is necessary for the continuing treatment of the diagnosis listed and that she requires Custodial Facility for less 30 days. Update Admission H&P: No change in H&P PHYSICIAN SIGNATURE: documented in this encounterSUMNY Work Phone: [phone]) 261-991206-08-2022 History of Present illness Narrative* FREDERICK Tilley CNP - 01/19/2022 3:30 PM EDT Reviewed recent orthostatic VS and ortho stasis resolved OK for DC to facility Reviewed UA: no UTI Nola Morrison APRN, [facility] Medicine * Derek Grullon OT - 01/19/2022 9:57 AM EDT Occupational Therapy Facility/Department: [address] Occupational Therapy Initial Assessment Name: Andre Blanca : 1950 Date of Service: 01/19/2022 Having reviewed the treatment plan and goals for this patient, I certify that the plan of care below is medically necessary and appropriate. Discharge Recommendations: Stabilizer Operator Care with OT OT Equipment Recommendations Equipment Needed: No (TBD at next level of care) Patient Diagnosis(es): The encounter diagnosis was Status post reverse total replacement of left shoulder. Past Medical History: has a past medical history of Bipolar 1 disorder ([facility]), Cerebral artery occlusion with cerebral infarction ([facility]), COPD (chronic obstructive pulmonary disease) ([facility]), Depression,DVT (deep venous thrombosis) ([facility]), Fibromyalgia, Hyperlipidemia, Hypothyroid, IBS (irritable bowelsyndrome), MDD (major depressive disorder), RAULITO (obstructive sleep apnea), Syncope, and TIA (transient ischemic attack). Past Surgical History: has a past surgical history that includes Hysterectomy; Arm Surgery (Right);and Cholecystectomy. Assessment Performance deficits / Impairments: Decreased functional mobility ;Decreased ADL status;Decreased ROM;Decreased strength;Decreased endurance;Decreased balance;Decreased high-level IADLs;Decreased posture Assessment: Pt seen 01/19 s/p L reverse total shoulder arthroplasty by Dr. Muhammad on 01/18 with new orders for NWB, sling to be donned at all times, and no shoulder AROM. Pt okay for hand, wrist, elbow AROM. Pt was previously from a facility and was IND with mobility with a rollator with assist for ADLs. She is currently MODA for UB ADLS, MIN A for LB ADLs, and CGA for functioanl transfers / mobiltiy.She requires increased time thisdate to complete functional activities and fatigues quickly. She was educated on proper positioning of sling as well as how to don / doff sling. Increased time required for education d/t LUE shoulder pain. Pt was able to don yesenia socks seated EOB without physical assist with extended time. She was able to complete sit<>stands x2 and completed mobility around the bed with CGA this date. Increased fatigue reported. She would benefit from skilled OT services toaddress the above performance deficits. Recommend planned D/C for return to facility. Prognosis: Good Decision Making: Medium Complexity History: Pt seen 01/19 s/p L reverse total shoulder arthroplasty by Dr. Muhammad on 01/18 with new orders for NWB, sling to be donned at all times, and no shoulder AROM. Pt okay for hand, wrist, elbow AROM. Exam: AM-PAC Assistance / Modification: MOD A - CGA REQUIRES OT FOLLOW-UP: Yes Activity Tolerance Activity Tolerance: Patient limited by fatigue;Patient limited by pain Plan Plan Times per Week: 5 visits Current Treatment Recommendations: Balance training,Functional mobility training,Endurance training,Pain management,Safety education & training,Patient/Caregiver education & training,Equipment evaluation, education, & procurement,Self-Care / ADL,Home management training Plan Comment: POc and goals established in collaboration with pt. Restrictions Restrictions/Precautions Restrictions/Precautions: ROM Restrictions,Surgical Protocols,General Precautions,Fall Risk,Weight Bearing Required Braces or Orthoses?: Yes Upper Extremity Weight Bearing Restrictions Left Upper Extremity Weight Bearing: Non Weight Bearing Required Braces or Orthoses Left Upper Extremity Brace/Splint: Sling Position Activity Restriction Other position/activity restrictions: s/p L rTSA on 01/[address] Muhammad, No shoulder ROM, okay for elbow, wrist and hand ROM, sling at all times Subjective General Chart Reviewed: Yes Patient assessed for rehabilitation services?: Yes Family / Caregiver Present: No Subjective Subjective: pleasant and cooperative General Comment Comments: OK to see per RN Pain: reports increased L shoulder pain this date at 04/23 Social/Functional History Social/Functional History Type of Home: Facility Home Layout: One level Home Access: Level entry Bathroom Accessibility: Accessible Home Equipment: Rollator Has the patient had two or more falls in the past year or any fall with injury in the past year?: Unknown Receives Help From: Other (comment) (facility staff) ADL Assistance: Needs assistance Homemaking Responsibilities: No Ambulation Assistance: Independent (with rollator) Transfer Assistance: Independent Active Entry Level Finance: No Occupation: Retired Additional Comments: Pt from nursing facility and states she recieves assist for showering due to O2 management and balance Objective Heart Rate: 85 Heart Rate Source: Monitor BP: (!) 148/86 BP Location: Right Arm MAP (Calculated): 106.67 Resp: 16 SpO2: 96 % O2 Device: Nasal cannula Vision Exceptions: Wears glasses at all times Hearing: Within functional limits Observation/Palpation Posture: Fair Observation: LUE sling placed and adjusted at this time. O2 n.c intact Safety Devices Type of Devices: All fall risk precautions in place;Call light within reach;Gait belt;Patient at risk for falls;Left in bed;Nurse notified Restraints Restraints Initially in Place: No Balance Sitting: (SUP sitting EOB) Standing: (CGA in standing, with quad cane. Pt tolerates ~ 1 minute of OOB activity this date as she fatigues quickly. No gross LOB noted) Gait Overall Level of Assistance: Contact-guard assistance (at quad cane, no true LOB, increaed time required to complete. No SOB noted at this time, however pt fatigues quickly with minimal OOB activity this date, requiring return to sitting for rest.) Distance (ft): (short functioanl distance around bed) Assistive Device: Cane, quad AROM: Grossly decreased, non-functional (RUE WFL, LUE unable to formally assess d/t no AROM at shoulder precautions s/p surgery.) Strength: Grossly decreased, non-functional (RUE WFL > +3/5 noted, AUNG unable to formally assessd/t NWB) ADL Feeding: Setup Grooming: Stand by assistance;Setup UE Bathing: Moderate assistance LE Bathing: Minimal assistance UE Dressing: Moderate assistance LE Dressing: Minimal assistance Toileting: Minimal assistance Additional Comments: Pt requires increased time this date for completion of ADL tasks this date. She was able to don socks seated EOB without physcial assist, however fatigues quickly in standing, indicating increased assist and time for standing ADL tasks. She required near total assist to don / doff sling at this time. Increased education provided for step by step proces on how to don / doff sling. Pt able to recall process after demonstration with sunshine for sequencing d/t novel task. She requires increased assist this date to don [facility] d/t increased pain at this time. Activity Tolerance Activity Tolerance: Patient limited by pain;Patient limited by fatigue;Patient limited by endurance Activity Tolerance Comments: Dizziness and SOB Bed mobility Supine to Sit: Contact guard assistance Sit to Supine: Contact guard assistance Scooting: Contact guard assistance Bed Mobility Comments: denies dizziness with chnage in position. Increased time required to complete. Increased reliance on bed rails with use of RUE this date. Transfers Sit to stand: Contact guard assistance Stand to sit: Contact guard assistance Transfer Comments: with quad cane, no gross LOB, increased time required to complete. No initial complaints of dizziness this date. Increased use of bed rails to push up from seated surface. Good hand placement of RUE this date. Pt with mild c/o dizziness upon return to sitting following functionalmobilty. Subsides with return to supine and ~ 1 minute rest. No gross LOB with completion Cognition Overall Cognitive Status: WFL Education Given To: Patient Education Provided: Role of Therapy;Plan of Care;Precautions;ADL Adaptive Strategies;Transfer Training Education Method: Verbal;Demonstration Barriers to Learning: (pain) Education Outcome: Continued education needed AM-PAC Score AM-PAC Inpatient Daily Activity Raw Score: 16 (01/19/22958) AM-PAC Inpatient ADL T-Scale Score : 35.96 (01/19/22958) ADL Inpatient CMS 0-100% Score: 53.32 (01/19/22958) ADL Inpatient CMS G-Code Modifier : CK (01/19/22958) Goals Short Term Goals Time Frame for Short term goals: 5 visits Short Term Goal 1: Pt will complete UB ADLs with MIN A Short Term Goal 2: Pt will complete LB ADLs with CGA Short Term Goal 3: pt will complete functional transfers / mobiltiy with quad cane and MOD I Short Term Goal 4: Pt will complete bathroom level toileting with SBA Short Term Goal 5: Pt will tolerate > 3 minutes of functional standing to increase endurance forADls and functional mobiltiy. Patient Goals Patient goals : none stated this date Therapy Time Individual Concurrent Group Co-treatment Time In 840 Time Out 09 Minutes 46 Timed Code Treatment Minutes: 31 Minutes (ADL x2) Derek Grullon OT * Nola Morrison, MANAGER PROJECT - GENERAL LABOR FORKLIFT OPERATOR - 01/19/2022 9:37 AM EDT Images from the original note were not included. Hospitalist Progress Note 01/19/2022 9:37 AM [phone]: Please page me ([phone]) or perfect serve me for patient care issues. [phone]: Please page [facility] night Hospitalist for any issues. Subjective: Admit Date: 01/18/2022 PCP: Kianna Izquierdo MD Room#: 168/1681 Admitting Synopsis: Andre is a 71 y.o. female with past medical history below who presents with left shoulder discomfortfor the last few weeks she was admitted for left shoulder pain and underwent left reverse total shoulder arthroplasty for rotator cuff tear arthropathy. Assessment and Plan: # Rotator cuff tear: S/P rotator cuff arthropathy - POD # 1 - PT/OT - Pain management per primary team # h/o hypotension Symptoms of lightheadedness/dizziness with standing - Check orthostatic VS: if + will give bolus if needed - Continue Midodrine, Florinef # urinary hesitancy - obtain UA to rule out UTI # COPD - Per RT - Steroids X 1 and Inhalers - Continue IS # hypothyroidism - Continue Synthroid # RAULITO - refuses C-PAP # HLD - Continue # H/o Stroke - Continue Plavix # H/O seizures - Continue Tegretol # Depression - Continue Buspar Interval History: States she didn't sleep well last night 2/2 pain in the shoulder. States she feels weak and dizzy when standing. Complains of some SOB with exertion. History of low BP but BP is stable at present. C/o mild right lower quadrant pain. Denies any dysuria. + for hesitancy. Will send UA. Objective: Vitals: BP (!) 148/86 Pulse 97 Temp 98.3 F (36.8 C) (Temporal) Resp 17 Ht 5' 7" (1.702 m) Wt 215 lb (97.5 kg) SpO2 94% BMI 33.67 kg/m Pulse Ox: SpO2 Av.4 % Min: 92 % Max: 95 % Supplemental O2: O2 Flow Rate (L/min): 3 L/min General appearance: in no apparent distress HEENT: Head: Normocephalic, no lesions, without obvious abnormality. Heart: regular rate and rhythm, S1, S2 normal, no murmur, click, rub or gallop Lungs: clear to auscultation bilaterally. decreased in bases Abdomen: mild lower quad pain, likely from DVT propha Extremities: extremities normal, atraumatic, no cyanosis or edema Musculoskeletal: left shoulder in sling, ice Neurologic: no cranial nerve deficit and speech normal Psychiatric: appropriate, oriented to person, place, situation and month of year Skin: Skin color, texture, turgor normal. No rashes or lesions. ADULT DIET; Regular Patient Vitals for the past 96 hrs (Last 3 readings): Weight 01/18/22 0653 215 lb (97.5 kg) 24HR INTAKE/OUTPUT: No intake or output data in the 24 hours ending 01/19/22 0937 Past Medical History: Diagnosis Date Bipolar 1 disorder ([facility]) Cerebral artery occlusion with cerebral infarction ([facility]) COPD (chronic obstructive pulmonary disease) ([facility]) Depression DVT (deep venous thrombosis) ([facility]) Fibromyalgia Hyperlipidemia Hypothyroid IBS (irritable bowel syndrome) MDD (major depressive disorder) RAULITO (obstructive sleep apnea) Syncope TIA (transient ischemic attack) Medications: sodium chloride sodium chloride flush 5-40 mL IntraVENous 2 times per day acetaminophen 650 mg Oral Q6H albuterol sulfate HFA 2 puff Inhalation 4x Daily busPIRone 10 mg Oral TID carBAMazepine 200 mg Oral TID [START ON 01/21/2022] vitamin D 50,000 Units Oral Weekly clopidogrel 75 mg Oral Daily fludrocortisone 0.1 mg Oral Daily levothyroxine 175 mcg Oral Daily midodrine 5 mg Oral TID mometasone-formoterol 2 puff Inhalation BID pravastatin 40 mg Oral Daily pregabalin 150 mg Oral BID risperiDONE 0.5 mg Oral Daily traZODone 50 mg Oral Nightly venlafaxine 37.5 mg Oral Daily pantoprazole 40 mg Oral QAM AC metoclopramide 10 mg IntraVENous Q6H methylPREDNISolone 125 mg IntraVENous Once LABS: CBC: Recent Labs 01/19/22414 WBC 11.3* RBC 3.75* HGB 10.6* HCT 32.9* MCV 87.5 RDW 15.5* PLT 244 BMP: Recent Labs 01/19/225 NA 136 K 3.7 CL 102 CO2 27 BUN 11 CREATININE 0.76 GLUCOSE 116* CALCIUM 8.4 ANIONGAP 6 LIVER PROFILE: Recent Labs 01/19/22414 AST 27 ALT 9 BILITOT 0.5 ALKPHOS 114 LABALBU 3.4* PROT 6.5 PT/INR: No results for input(s): PROTIME, INR in the last 72 hours. CARDIAC ENZYMES: No results for input(s): TROPONINI in the last 72 hours. Procalcitonin: No results found for: PROCAL -am labs, replace lytes prn -increase activity -DVT prophylaxis: [] Lovenox [] Heparin [x] SCDs [x] Encourage ambulation [] On Anticoagulation [] OAC/NOAC held [] ASA 325 per primary service GI Prophylaxis [x] PPI/H2 [] tolerating diet Advance Directive: Prior Discharge planning: Likely DC later today, Check UA and orthostatic VS FREDERICK TILLEY CNP Division of Hospitalist Medicine Inpatient Medical Services PAGER: [phone] * Familia Esparza MD - 01/19/2022 9:03 AM EDT Images from the original note were not included. [facility] [address] [address] Dept: [phone] Loc: [phone] Orthopedic Progress Note Name: Andre Blanca Date:01/19/2022 Attending:Kim Muhammad MD Subjective No events o/n. Pain controlled, though mildly sore. No acute issues Objective Vitals: Vitals: 01/18/22202701/18/22 2340 01/19/22 0406 01/19/22 0728 BP: 130/88 (!) 141/69 127/68 (!) 148/86 Pulse: 90 82 87 97 Resp: 16 18 18 17 Temp: 97.3 F (36.3 C) 97.9 F (36.6 C) 97.9 F (36.6 C) 98.3 F (36.8 C) TempSrc: Temporal Temporal Temporal Temporal SpO2: 94% 94% 95% 94% Weight: Height: Physical Exam: General: NAD LUE Dressing: Clean/Dry/Intact SILT: Radial/Ulnar/Median distributions, mildly diminished due to block Motor: +AIN/PIN/Hand Intrinsic Pulses: Palpable Radial LABS: Recent Labs 01/19/22 0415 WBC 11.3* HGB 10.6* HCT 32.9* PLT 244 Recent Labs 01/19/22 0415 NA 136 K 3.7 CL 102 CO2 27 BUN 11 CREATININE 0.76 CALCIUM 8.4 No results for input(s): INR in the last 72 hours. No results for input(s): SEDRATE, CRP in the last 72 hours. No results for input(s): HCG in the last 72 hours. Assessment Andre is a 71 y.o.female s/p L rTSA 01/18 / Plan -Weight bearing: NWB RUE. Keep in sling at all times. OK for ROM of elbow/wrist. -No return to OR planned -OK for diet -Hemoglobin check till post-op day #1 -Abx x24hrs -PT: ambulation ONLY and instructions for sling removal and Elbow/wrist ROM. NO ROM of shoulder -Social work consult -DVT prophylaxis/pain control: SCDs, pain control. -Medicine consult for post op medical management/home medication -F/u OP w/ Dr Muhammad in 1 weeks, discharge instructions in AVS -Ortho 1 * Seda Bradford, TENTER - 01/19/2022 8:11 AM EDT Physical Therapy Facility/Department: [address] Daily Treatment Note Name: Andre Blanca : 1950 Date of Service: 01/19/2022 Discharge Recommendations: Subacute/Custodial Facility Patient Diagnosis(es): The encounter diagnosis was Status post reverse total replacement of left shoulder. Past Medical History: has a past medical history of Bipolar 1 disorder ([facility]), Cerebral artery occlusion with cerebral infarction ([facility]), COPD (chronic obstructive pulmonary disease) ([facility]), Depression,DVT (deep venous thrombosis) ([facility]), Fibromyalgia, Hyperlipidemia, Hypothyroid, IBS (irritable bowelsyndrome), MDD (major depressive disorder), RAULITO (obstructive sleep apnea), Syncope, and TIA (transient ischemic attack). Past Surgical History: has a past surgical history that includes Hysterectomy; Arm Surgery (Right);and Cholecystectomy. Assessment Assessment: Pt presents with increased functional mobility. Pt is CGA for all aspects of bed mobility, min A x 1 for STS and 12ft x 2 of ambulation. Pt fatigues quickly and gets SOB but WFL. Pt requires extended time to complete along with seated rest breaks. Pt is expected to benefit from continued therapy in order to increase independence. Activity Tolerance Activity Tolerance: Patient limited by pain;Patient limited by fatigue;Patient limited by endurance Activity Tolerance Comments: Dizziness and SOB Plan Plan Plan: (4 visits) Current Treatment Recommendations: Strengthening,ROM,Balance training,Functional mobility training,Transfer training,Endurance training,Gait training,Pain management,Patient/Caregiver education &training,Safety education & training,Equipment evaluation, education, & procurement,Positioning Safety Devices Type of Devices: All fall risk precautions in place,Call light within reach,Gait belt,Patient at risk for falls,Left in bed,Nurse notified Restrictions Restrictions/Precautions Restrictions/Precautions: ROM Restrictions,Surgical Protocols,General Precautions,Fall Risk,Weight Bearing Required Braces or Orthoses?: Yes Upper Extremity Weight Bearing Restrictions Left Upper Extremity Weight Bearing: Non Weight Bearing Required Braces or Orthoses Left Upper Extremity Brace/Splint: Sling Position Activity Restriction Other position/activity restrictions: s/p L rTSA on 01/[address] Muhammad, No shoulder ROM, okay for elbow, wrist and hand ROM, sling at all times Subjective General Chart Reviewed: Yes Family / Caregiver Present: No General Comment Comments: Per RN patient okay for therapy Subjective Subjective: Pt is agreeable to therapy. Pt states pain but didnt rate. Ice applied to front and back Objective Heart Rate: 97 Heart Rate Source: Monitor BP: (!) 148/86 BP Location: Right Arm MAP (Calculated): 106.67 Resp: 17 SpO2: 94 % O2 Device: Nasal cannula Bed mobility Supine to Sit: Contact guard assistance Sit to Supine: Contact guard assistance Scooting: Contact guard assistance Bed Mobility Comments: Denied dizziness. Pt requires extended time to complete along with use if bed rails with R UE. Transfers Sit to Stand: Minimal Assistance (to small base quad cane) Stand to sit: Minimal Assistance Comment: Denied dizziness. Pt educated to complete transfer before grabbing onto SBQC. Pt was fitted for correct height. Pt educated on how to use along with correct sequence and proximity of quad cane placement. Ambulation Surface: level tile Device: Small Base Quad Cane Other Apparatus: O2 (L UE sling and 3L) Assistance: Minimal assistance Quality of Gait: Demonstrates a short step to pattern, decreased step height and length, cues for upright posture, limited by fatigue and SOB but WFL, slight unsteadiness but no LOB Gait Deviations: Slow Eugenia;Increased LUIS;Decreased step length;Decreased step height Distance: 12ft x 2 (seated rest breaks) Comments: Pt able to demonstrate good carryover on how to use small base quad cane. Pt requires light cues for proximity. Extended time to complete Exercises: 1. Ankle pumps: 1 set of 5 reps B LE 2. SLR: 1 set of 2 reps R and L LE 3.Heel slides: 1 set of 2 reps R and L LE 4. Glut sets; 1 set of 2 reps B LE AM-PAC Score AM-PAC Inpatient Mobility Raw Score : 16 (01/19/22755) AM-PAC Inpatient T-Scale Score : 40.78 (01/19/22755) Mobility Inpatient CMS 0-100% Score: 54.16 (01/19/22755) Mobility Inpatient CMS G-Code Modifier : CK (01/19/22755) Goals Short Term Goals Time Frame for Short term goals: 5 visits Short term goal 1: Pt will complete bed mobility with Ruby while maintaining NWB to LUE to increaseindependence. (met) Short term goal 2: Pt will complete functional transfers with LRAD and CGA in preparation for gait.(not met) Short term goal 3: Pt will ambulate 75' with LRAD and SBA to increase endurance and safety. (not met) Patient Goals Patient goals : To increase independence. Therapy Time Individual Concurrent Group Co-treatment Time In 728 Time Out 0752 Minutes 23 Timed Code Treatment Minutes: 23 Minutes (1 ther act, 1 gait) Seda Bradford TENTER * Maia Hernandez PT - 01/18/2022 1:48 PM EDT Physical Therapy Facility/Department: [address] Physical Therapy Initial Assessment Name: Andre Blanca : 1950 Date of Service: 01/18/2022 Having reviewed the treatment plan and goals for this patient, I certify that the plan of care below is medically necessary and appropriate. Discharge Recommendations: Subacute/Custodial Facility PT Equipment Recommendations Equipment Needed: No Other: tbd Patient Diagnosis(es): There were no encounter diagnoses. Past Medical History: has a past medical history of Bipolar 1 disorder (HCC), Cerebral artery occlusion with cerebral infarction (HCC), COPD (chronic obstructive pulmonary disease) (HCC), Depression,DVT (deep venous thrombosis) (HCC), Fibromyalgia, Hyperlipidemia, Hypothyroid, IBS (irritable bowelsyndrome), MDD (major depressive disorder), RAULITO (obstructive sleep apnea), Syncope, and TIA (transient ischemic attack). Past Surgical History: has a past surgical history that includes Hysterectomy; Arm Surgery (Right);and Cholecystectomy. Assessment Body Structures, Functions, Activity Limitations Requiring Skilled Therapeutic Intervention: Decreased functional mobility ;Decreased ROM;Decreased strength;Decreased safe awareness;Decreased endurance;Decreased balance;Decreased posture Assessment: Patient is s/p L rTSA on 01/[address] Muhammad and is now NWB with sling at all times and noshoulder ROM. Pt presents with the above deficits limiting her functional independence. On evaluation patient requires Ruby for bed mobility, Ruby for transfers and Ruby for ambulation with PRESSURE CONTROL SUPERVISOR. Pt demos decreased balance and decreased safety awareness with new post op restrictions. Pt should benefit from skilled PT to increase funcitonal independence and safety with mobility. Rec return to SNF with PT upon acute care discharge. Therapy Prognosis: Good Decision Making: Medium Complexity History: Patient is s/p L rTSA on 01/[address] Muhammad and is now NWB with sling at all times and no shoulder ROM. PMH listed above. Exam: AM-PAC Clinical Presentation: Pt has PMH as indicated above that contributes to her clinical presentation.At baseline patient lives at nursing facility and requires supervision for ADLs and is functioanllyindependent with a rollator. Pt currently requires increased assist and would benefit from SNF withPT upon discharge. Barriers to Learning: none Requires PT Follow-Up: Yes Activity Tolerance Activity Tolerance: Patient limited by fatigue;Patient limited by endurance Plan Plan Plan: (5 visits) Current Treatment Recommendations: Strengthening,ROM,Balance training,Functional mobility training,Transfer training,Endurance training,Gait training,Pain management,Patient/Caregiver education &training,Safety education & training,Equipment evaluation, education, & procurement,Positioning Plan Comment: all goals and/or treatment were established in collaboration with patient Safety Devices Type of Devices: All fall risk precautions in place,Call light within reach,Gait belt,Patient at risk for falls,Left in bed,Nurse notified Restrictions Restrictions/Precautions Restrictions/Precautions: ROM Restrictions,Surgical Protocols,General Precautions,Fall Risk,Weight Bearing Required Braces or Orthoses?: Yes Upper Extremity Weight Bearing Restrictions Left Upper Extremity Weight Bearing: Non Weight Bearing Required Braces or Orthoses Left Upper Extremity Brace/Splint: Sling Position Activity Restriction Other position/activity restrictions: s/p L rTSA on 01/[address] Muhammad, No shoulder ROM, okay for elbow, wrist and hand ROM, sling at all times Subjective Pain: Denies any pain at this time. General Chart Reviewed: Yes Patient assessed for rehabilitation services?: Yes Family / Caregiver Present: No Follows Commands: Within Functional Limits General Comment Comments: Per RN patient okay for therapy Subjective Subjective: Pt seated EOB with RN and agreeable to therapy. Social/Functional History Social/Functional History Type of Home: Facility Home Layout: One level Home Access: Level entry Bathroom Accessibility: Accessible Home Equipment: Rollator Has the patient had two or more falls in the past year or any fall with injury in the past year?: Unknown Receives Help From: Other (comment) (facility staff) ADL Assistance: Needs assistance Homemaking Responsibilities: No Ambulation Assistance: Independent (with rollator) Transfer Assistance: Independent Active Entry Level Finance: No Occupation: Retired Additional Comments: Pt from nursing facility and states she recieves assist for showering due to O2 management and balance Vision/Hearing Vision Vision: Within Functional Limits Vision Exceptions: Wears glasses at all times Hearing Hearing: Within functional limits Cognition Orientation Overall Orientation Status: Within Normal Limits Cognition Overall Cognitive Status: WNL Objective Heart Rate: 79 Heart Rate Source: Monitor BP: (!) 132/94 BP Location: Right Arm Patient Position: Supine MAP (Calculated): 106.67 Resp: 18 SpO2: 94 % O2 Device: Nasal cannula Observation/Palpation Posture: Fair Observation: LUE sling improperly placed with elbow out of back- adjusted correctly with assist of RN; BP 157/94 and 3L O2 intact Gross Assessment AROM: Within functional limits PROM: Within functional limits Strength: Within functional limits Coordination: Within functional limits Tone: Normal Sensation: Impaired (post op numbness in LUE) Bed mobility Supine to Sit: Unable to assess (pt seated EOB with RN) Sit to Supine: Minimal assistance Scooting: Minimal assistance Bed Mobility Comments: HOB slightly elevated. Pt educated on NWB to LUE and demos good understanding. Denies dizziness with positional changes. Ruby to return to supine with CGA to LUE to maintain NWB and Ruby for BLEs. Transfers Sit to Stand: Minimal Assistance Stand to sit: Minimal Assistance Comment: Ruby to stand with RUE support on EOB and PRESSURE CONTROL SUPERVISOR given in static standing. Some unsteadiness in standing with no acute LOB. Use of momentum to stand. Denies dizziness. Ambulation Surface: level tile Device: Hand-Held Assist Assistance: Minimal assistance Quality of Gait: Pt ambulates with short reciprocal steps and wide LUIS. No acute LOB, however general unsteadiness noted. Limited by fatigue and some lightheadedness. Gait Deviations: Slow Eugenia;Increased LUIS;Decreased step length;Decreased step height Distance: ~20'x1 Comments: Pt demos increased unsteadiness and would benefit from assistive device training. Trial quad cane vs SPC next session. More Ambulation?: No Stairs/Curb Stairs?: No Balance Posture: Fair Sitting - Static: Good Sitting - Dynamic: Good Standing - Static: Fair;+ Standing - Dynamic: Fair;- AM-PAC Score AM-PAC Inpatient Mobility Raw Score : 13 (01/18/22 134) [facility] Inpatient T-Scale Score : 36.74 (01/18/22 134) Mobility Inpatient CMS 0-100% Score: 64.91 (01/18/22 134) Mobility Inpatient CMS G-Code Modifier : CL (01/18/221345) Goals Short Term Goals Time Frame for Short term goals: 5 visits Short term goal 1: Pt will complete bed mobility with Ruby while maintaining NWB to LUE to increaseindependence. Short term goal 2: Pt will complete functional transfers with LRAD and CGA in preparation for gait. Short term goal 3: Pt will ambulate 75' with LRAD and SBA to increase endurance and safety. Patient Goals Patient goals : To increase independence. Education Patient Education Education Given To: Patient Education Provided: Role of Therapy;Plan of Care;Transfer Training;Precautions;Fall Prevention Strategies Education Method: Demonstration;Verbal Barriers to Learning: None Education Outcome: Continued education needed Therapy Time Individual Concurrent Group Co-treatment Time In 1300 Time Out 1315 Minutes 15 Maia Hernandez, PT * Lacy Gonsalves RN - 01/18/2022 12:36 PM EDT Report to spencer dalton To pinole via bed Sleeping at intervals easily arouses No family here to update Pt will call from room to update who she desires documented in this [facility] Work Phone: [phone]) 354-747206-08-2022 Hospital Discharge instructions* Discharge Instr - ROSALIO* Spencer Brush LPN - 01/19/2022 9:01 AM EDT Continuity of Care Form Patient Name: Andre Blanca : 1950 Admit date: 01/18/2022 Discharge date: 01/19/22 Code Status Order: Prior Advance Directives: Advance Care Flowsheet Documentation Date/Time Healthcare Directive Type of Healthcare Directive Copy in Chart Healthcare Agent Appointed Healthcare Agent's Name Healthcare Agent's Phone Number 01/18/22 0644 Yes, patient has an advance directive for healthcare treatment Durable power of distribution sales representative for health care;Living will -- Adult Children Giana -- Admitting Physician: Kim Muhammad MD PCP: Kianna Izquierdo MD Discharging Nurse: Spencer Brush Discharging Hospital Unit/Room#: 919/1687 Discharging Unit Emergency Contact: Extended Emergency Contact Information Primary Emergency Contact: Giana Blanca Relation: Child Past Surgical History: Past Surgical History: Procedure Laterality Date ARM SURGERY Right CHOLECYSTECTOMY HYSTERECTOMY (CERVIX STATUS UNKNOWN) Immunization History: Immunization History Administered Date(s) Administered COVID-19, Pfizer Albarran top, DO NOT Dilute, Bridger-Sucrose, 12+ yrs, PF, 30 mcg/0.3 mL dose 12/02/2021 COVID-19, Pfizer Purple top, DILUTE for use, 12+ yrs, 30mcg/0.3mL dose 09/09/2020, 06/03/2021 Active Problems: Patient Active Problem List Diagnosis Code Bipolar 1 disorder ([facility]) F31.9 COPD (chronic obstructive pulmonary disease) ([facility]) J44.9 H/O TIA (transient ischemic attack) and stroke Z86.73 Abnormal EKG R94.31 Near syncope R55 Fall from ground level W18.30XA Accidental fall from bed W06.XXXA Head injury S09.90XA At risk for delirium Z91.89 Debility R53.81 Polypharmacy Z79.899 Hypothyroidism E03.9 Osteoarthritis M19.90 Syncope and collapse R55 Concussion with loss of consciousness of 30 minutes or less S06.0X1A Dizziness R42 Left rotator cuff tear arthropathy M75.102, M12.812 Isolation/Infection: Isolation No Isolation Patient Infection Status None to display Nurse Assessment: Last Vital Signs: BP (!) 148/86 Pulse 97 Temp 98.3 F (36.8 C) (Temporal) Resp 17 Ht 5' 7" (1.702 m) Wt 215 lb (97.5 kg) SpO2 94% BMI 33.67 kg/m Last documented pain score (0-10 scale): Pain Level: 5 Last Weight: Wt Readings from Last 1 Encounters: 01/18/22 215 lb (97.5 kg) Mental Status: oriented and alert IV Access: - None Nursing Mobility/ADLs: Walking Independent Transfer Independent Bathing Assisted Dressing Assisted Toileting Assisted Feeding Independent Junction Maker Independent Med Delivery whole Wound Care Documentation and Therapy: Incision 01/18/22 Shoulder Left (Active) Dressing Status Clean;Dry;Intact 01/19/22 0744 Dressing/Treatment Silver dressing;Other (comment);Ice applied/Cryotherapy 01/19/22 07 Incision Assessment Other (Comment) 01/19/22 0744 Drainage Amount None 01/19/22 0744 Odor None 01/19/22 0744 Number of days: 0 Elimination: Continence: Bowel: Yes Bladder: Yes Urinary Catheter: None Colostomy/Ileostomy/Ileal Conduit: No Date of Last BM: 01/18/22 Safety Concerns: At Risk for Falls Impairments/Disabilities: Left shoulder in sling, no feeling as of yet due to nerve block. Nutrition Therapy: Current Nutrition Therapy: - Oral Diet: General Routes of Feeding: Oral Liquids: Thin Liquids Daily Fluid Restriction: no Last Modified Barium Swallow with Video (Video Swallowing Test): not done Treatments at the Time of Hospital Discharge: Respiratory Treatments: 3L O2, patients baseline Oxygen Therapy: is on oxygen at 3 L/min per nasal cannula. Ventilator: - No ventilator support Rehab Therapies: Physical Therapy and Occupational Therapy Weight Bearing Status/Restrictions: No weight bearing restrictions Other Medical Equipment (for information only, NOT a DME order): cane Other Treatments: Patient's personal belongings (please select all that are sent with patient): Personal belongings sent with patient. Has own walker/rollator RN SIGNATURE: CASE MANAGEMENT/SOCIAL WORK SECTION Inpatient Status Date: Readmission Risk Assessment Score: Readmission Risk Risk of Unplanned Readmission: 0 Discharging to Facility/ Agency Name: Address: Phone: Fax: Dialysis Facility (if applicable) Name: Address: Dialysis Schedule: Phone: Fax: Global Account Director/Bean Snapper signature: {Esignature:[id number]} PHYSICIAN SECTION Prognosis: {Prognosis:7361085037} Condition at Discharge: { Patient Condition:646793934} Rehab Potential (if transferring to Rehab): {Prognosis:1214469535} Recommended Labs or Other Treatments After Discharge: Physician Certification: I certify the above information and transfer of Andre Blanca is necessary for the continuing treatment of the diagnosis listed and that she requires {Admit to Appropriate Level of Care:66991} for {GREATER/LESS:472451106} 30 days. Update Admission H&P: {CHP DME Changes in HandP:450651204} PHYSICIAN SIGNATURE: {Esignature:304806516} * Additional Instructions* Nurys Leong PA - 01/18/2022 Bandage: Keep operative bandage on, clean, and dry until first post operative appointment. This is waterproof and may be worn in the shower but do not soak in bath water, pool, or hot tub. Immobilization: Sling is to be worn at all times and can only be removed for hygiene purposes. You are okay to openthe sling to gently move your elbow, wrist, and hand but do NOT move the shoulder. Swelling control: Ice the shoulder and arm for swelling and pain control. Medications: Take pain medications and antibiotics (if prescribed) as instructed. Weightbearing: Non weight bearing in operative extremity. Nerve block for pain control: If you have any questions regarding your nerve block and catheter, please refer to the information packet provided in your post op folder. You can also call (generic nurse) or [phone] and page Acute Pain Service installation 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 for further questions or concerns. documented in this [facility] Work Phone: 1(531) 879-921005-27-2022 NoteDepartment of Trauma / Critical Care Discharge Summary Name: Andre Blanca Date: 02/02/2022 12:32 PM : 1950 Age/Sex: 71 y.o. female Admit Date: 01/04/2022 Discharge Date: 01/07/2022 Attending: Jessika Collins MD Discharge Diagnosis: 1. Fall from bed, initial encounter 2. Injury of head, initial encounter Patient Active Problem List Diagnosis ? Bipolar 1 disorder (HCC) ? COPD (chronic obstructive pulmonary disease) (HCC) ? H/O TIA (transient ischemic attack) and stroke ? Abnormal EKG ? Near syncope ? Fall from ground level ? Accidental fall from bed ? Head injury ? At risk for delirium ? Debility ? Polypharmacy ? Hypothyroidism ? Osteoarthritis ? Syncope and collapse ? Concussion with loss of consciousness of 30 minutes or less ? Dizziness ? Left rotator cuff tear arthropathy ? Obesity (BMI 30-39.9) Body mass index is 32.11 kg/m?. BMI Classification: Obese (BMI 30.0-39.9) Reason for Hospitalization: The patient was admitted for fall. Hospital Course (Care, treatment and services provided): Please see H&P and prior notes for more detailed summary of previous investigations and clinical assessment prior to this admission. Brief HPI 71 y.o.?female?status post FSH. ?The incident happened around 1000?on 01/04?at her [facility]CF. ?When the event happened the patient was walking, became dizzy and fell to the ground with complaints of right hip pain and righ elbow pain.? ? INJURIES: Syncopal fall Hospital course: Ms. Blanca was admitted after a syncopal fall at her facility. Cardiology consulted for + orthostatic vitals and hx of syncope. Midodrine and florinef were added and she became orthostatic negative. She was able to be discharged back to her facility on PHD3. Consultations: IP CONSULT TO CARDIOLOGY IP CONSULT TO GERIATRICS IP CONSULT TO SPIRITUAL SERVICES PCP: Kianna Izquierdo MD Recommended Follow-ups: Cardiology Spi trauma Treatments and Procedures with outcomes: Labs: Data Review Data CBC with Differential: Lab Results Component Value Date WBC 11.3 01/19/2022 RBC 3.75 01/19/2022 HGB 10.6 01/19/2022 HCT 32.9 01/19/2022 PLT 244 01/19/2022 CMP: Lab Results Component Value Date NA 136 01/19/2022 K 3.7 01/19/2022 CL 102 01/19/2022 CO2 27 01/19/2022 BUN 11 01/19/2022 CREATININE 0.76 01/19/2022 GLUCOSE 116 01/19/2022 PROT 6.5 01/19/2022 LABALBU 3.4 01/19/2022 CALCIUM 8.4 01/19/2022 BILITOT 0.5 01/19/2022 ALKPHOS 114 01/19/2022 AST 27 01/19/2022 ALT 9 01/19/2022 BMP: Hepatic Function Panel: Ionized Calcium: No results found for: IONCA Magnesium: No results found for: MG Phosphorus: No results found for: PHOS PT/INR: Lab Results Component Value Date PROTIME 11.4 01/04/2022 INR 1.1 01/04/2022 PTT: Lab Results Component Value Date APTT 28.5 01/04/2022 [APTT Last 3 Troponin: Lab Results Component Value Date TROPONINI <0.012 01/04/2022 Urine Culture: No components found for: CURINE Blood Culture: No components found for: CBLOOD, CFUNGUSBL Blood Culture from Central Line: No components found for: CBLOODLN Stool Culture: No components found for: CSTOOL Sputum Culture: No components found for: CSPUTUM Sputum Culture for AFB: No components found for: CAFBSM Wound Culture: NA Procedures: none Significant Imaging Results: ECHO Complete 2D W Doppler W Color Result Date: 01/05/2022 TRANSTHORACIC ECHOCARDIOGRAM (AMENDED REPORT ) PATIENT: Andre Blanca STUDY DATE: 01/05/2022 Lila : 1950 AGE: 71 HT/WT: 170.2 cm (67 93 kg (204.6 in) lb) GENDER: F BP: 158 / 74 LOCATION: [facility] PATIENT Inpatient main STATUS: *ORDERING PHYSICIAN: * Ben Cochran MD *READING PHYSICIAN: * Aj, *BENDING ROLL HAND: * Genaro Camacho RUST INDICATIONS: Recurrent syncope; labile bp. CONCLUSIONS SUMMARY: 1. Left ventricle: Systolic function is normal by the biplane method of disks. The estimated ejection fraction is 65%. There are no regional wall motion abnormalities. Left ventricular diastolic function parameters are normal. 2. Mitral valve: There is mild-moderate, 1-2+ regurgitation. 3. Tricuspid valve: There is mild-moderate, 1-2+ regurgitation. 4. Pulmonary arteries: Systolic pressure is mildly increased, estimated to be 46 mm Hg. STUDY DATA: Complete transthoracic echocardiogram. Procedure: Image quality was fair. The study was technically limited due to poor acoustic window availability, body habitus, respiratory interference, small rib spaces, and off axis. M-mode, complete 2D, complete spectral Doppler, and color flow Doppler images were acquired and archived for permanent (more content not included)... Broadersheet SystemEvaluation note* Diagnosis Chronic left shoulder pain Pain in joint, shoulder region documented in this encounter [employer] Phone: Evaluation noteNo assessment information available [facility] Work Phone: Evaluation note* Diagnosis Status post reverse total replacement of left shoulder- Primary Left rotator cuff tear arthropathy documented in this encounter [employer] Phone: Evaluation note* Diagnosis Glenohumeral arthritis, left S/P reverse total shoulder arthroplasty, left documented in this encounter [employer] Phone: Evaluation note* Diagnosis Left shoulder pain, unspecified chronicity documented in this encounter [employer] Phone: Evaluation note* Diagnosis Arthritis of knee, right Unspecified arthropathy, lower leg documented in this encounter [employer] Phone: Evaluation note* Diagnosis Closed displaced fracture of left femoral neck (HCC)- Primary Syncope and collapse Acute pain of left shoulder Left hip pain Pain in joint, pelvic region and thigh Acute traumatic pain Acute pain due to trauma Fall at home, initial encounter Closed fracture of left olecranon process Closed fracture of olecranon process of ulna Syncope Syncope and collapse At risk for delirium Polypharmacy Issue of repeat prescriptions Palliative care encounter Encounter for palliative care Goals of care, counseling/discussion Other specified counseling Acute encephalopathy Encephalopathy, unspecified Vitamin D deficiency Unspecified vitamin D deficiency Hypoxia Hypoxemia documented in this encounter [facility] Work Phone: Evaluation note* Diagnosis Right knee pain, unspecified chronicity- Primary [facility] Right knee pain, unspecified chronicity [facility] Diagnosis Primary osteoarthritis of right knee- Primary Primary osteoarthritis of right knee Arthritis of knee, right [facility] Diagnosis S/P total knee arthroplasty, right- Primary [facility] Diagnosis Primary osteoarthritis of right knee S/P total knee arthroplasty, right [facility] Diagnosis S/P total knee arthroplasty, right [facility] Diagnosis S/P total knee arthroplasty, right [facility] Diagnosis Status post total right knee replacement Primary osteoarthritis of right knee [facility] Diagnosis Status post total right knee replacement- Primary Primary osteoarthritis of right knee [facility] Diagnosis Right hip pain- Primary Pain in joint, pelvic region and thigh documented in this encounter [facility]* Diagnosis Right hip pain Pain in joint, pelvic region and thigh [facility] Diagnosis Right hip pain Pain in joint, pelvic region and thigh [facility] Diagnosis Right hip pain Pain in joint, pelvic region and thigh Avascular necrosis of bone of hip, right (HCC) documented in this encounter [facility]* Diagnosis Pneumonia due to organism- Primary Pneumonia due to other specified organism Pneumonia due to organism Pneumonia due to other specified organism Fall, initial encounter Neuropathy Mononeuritis of unspecified site Pneumonia due to infectious agent Unspecified infectious and parasitic diseases documented in this encounter [facility]* Diagnosis Spondylolysis, lumbosacral- Primary Congenital spondylolysis, lumbosacral region Sacroiliac dysfunction Nonallopathic lesion of sacral region, not elsewhere classified Lumbar pain Lumbago documented in this encounter [facility]* Diagnosis Lumbar pain Lumbago documented in this encounter [facility] HealthInstructions* Attachments The following attachments cannot be sent through Care Everywhere. * Hip Bursitis Exercises (Estonian) [facility]Reason for referral (narrative)No reason for referral information availableWProMedica F[facility] Work Phone: Reason for visit Narrative* Imaging (Routine) - Closed Specialty Diagnoses / Procedures Referred By Contac t Referred To Contact Radiology Diagnoses Right hip pain Avascular necrosis of bone of hip, right (HCC) Procedures MR hip right wo Almas Laureaon MD [address] [facility] [address] [place] [address] Phone: tel: fax: Referral ID Status Reason Start Date Expiration Date Visits Re quested Visits Authorized [id number] Closed 01/12/2024 01/11/2025 1 1 [facility] Summary Purpose Family History No Family History Records FoundNo Family History Records FoundNo Family History Records FoundNo Family History Records FoundNo Family History Records FoundNo Family History Records FoundNo Family History Records FoundNo Family History Records FoundNo Family History Records Found Advance Directives No Advanced Directives Records FoundDocuments on File Type Date Recorded Patient Supervisor Record Press Expl anation ACP-Advance Directive 11/17/2020 12:00 AM Documents on File Type Date Recorded Patient Supervisor Record Press Expl anation ACP-Do Not Resuscitate 01/12/2022 11:50 AM ACP-Advance Directive 12/27/2021 12:00 AM Latest Code Status on File Code Status Date Activated Date Inactivated Comments Full Code 01/18/2022 6:34 AM 01/18/2022 12:42 PM DNR-CCA 01/05/2022 8:19 PM 01/07/2022 2:30 PM Limited 01/04/2022 3:26 PM 01/05/2022 8:19 PM Intubation/Re-intubation at the time of arrest: Yes Defibrillation/Cardioversion: Yes Chest Compressions: Yes Resuscitative Medications: Yes Documents on File Type Date Recorded Patient Supervisor Record Press Expl anation ACP-Advance Directive 01/21/2022 9:23 AM ACP-Do Not Resuscitate 01/12/2022 11:50 AM ACP-Advance Directive 12/27/2021 Documents on File Type Date Recorded Patient Supervisor Record Press Expl anation ACP-Advance Directive 05/30/2022 Latest Code Status on File Code Status Date Activated Date Inactivated Comments Full Code 05/30/2022 11:06 AM Documents on File Type Date Recorded Patient Supervisor Record Press Expl anation Advance Directives and Living Will 01/18/2022 DNR (Do Not Resuscitate) 01/04/2022 Latest Code Status on File Code Status Date Activated Date Inactivated Comments Full Code 07/07/2022 3:47 AM 07/07/2022 6:38 PM Documents on File Type Date Recorded Patient Supervisor Record Press Expl anation Advance Directives and Living Will 01/18/2022 DNR (Do Not Resuscitate) 01/04/2022 Latest Code Status on File Code Status Date Activated Date Inactivated Comments Full Code 01/12/2023 3:29 PM Code Status History Code Status Date Activated Date Inactivated Comments Full Code 01/12/2023 9:45 AM 01/12/2023 3:29 PM Full Code 07/07/2022 3:47 AM 07/07/2022 6:38 PM Latest Code Status on File Code Status Date Activated Date Inactivated Comments Full Code 01/12/2023 3:29 PM 01/13/2023 5:24 PM Latest Code Status on File Code Status Date Activated Date Inactivated Comments Full Code 01/12/2023 3:29 PM 01/13/2023 5:24 PM Code Status History Code Status Date Activated Date Inactivated Comments Full Code 01/12/2023 9:45 AM 01/12/2023 3:29 PM Full Code 07/07/2022 3:47 AM 07/07/2022 6:38 PM Documents on File Type Date Recorded Patient Supervisor Record Press Expl anation Advance Directives and Livin g Will 07/26/2023 11:32 AM Advance Directives and Livin g Will 01/18/2022 DNR (Do Not Resuscitate) 01/04/2022 Latest Code Status on File Code Status Date Activated Date Inactivated Comments Full Code 07/24/2023 4:01 AM 07/25/2023 2:59 PM Code Status History Code Status Date Activated Date Inactivated Comments Full Code 01/12/2023 3:29 PM 01/13/2023 5:24 PM Full Code 01/12/2023 9:45 AM 01/12/2023 3:29 PM Full Code 07/07/2022 3:47 AM 07/07/2022 6:38 PM Documents on File Type Date Recorded Patient Supervisor Record Press Expl anation Advance Directives and Livin g Will 07/26/2023 11:32 AM Advance Directives and Livin g Will 01/18/2022 DNR (Do Not Resuscitate) 01/04/2022 Latest Code Status on File Code Status Date Activated Date Inactivated Comments Full Code 07/24/2023 4:01 AM 07/25/2023 2:59 PM Code Status History Code Status Date Activated Date Inactivated Comments Full Code 01/12/2023 3:29 PM 01/13/2023 5:24 PM Full Code 01/12/2023 9:45 AM 01/12/2023 3:29 PM Full Code 07/07/2022 3:47 AM 07/07/2022 6:38 PM Date Activated Date Inactivated Comments 07/24/2023 4:01 AM 07/25/2023 2:59 PM Date Activated Date Inactivated Comments 01/12/2023 3:29 PM 01/13/2023 5:24 PM Date Activated Date Inactivated Comments 01/12/2023 9:45 AM 01/12/2023 3:29 PM Date Activated Date Inactivated Comments 07/07/2022 3:47 AM 07/07/2022 6:38 PM Documents on File Type Date Recorded Patient Supervisor Record Press Expl anation Advance Directives and Living Will 01/18/2022 Date Activated Date Inactivated Comments 09/23/2024 2:56 PM 09/27/2024 6:48 PM Date Activated Date Inactivated Comments 09/23/2024 2:56 PM 09/27/2024 6:48 PM Date Activated Date Inactivated Comments 07/24/2023 4:01 AM 07/25/2023 2:59 PM Date Activated Date Inactivated Comments 01/12/2023 3:29 PM 01/13/2023 5:24 PM Date Activated Date Inactivated Comments 01/12/2023 9:45 AM 01/12/2023 3:29 PM Date Activated Date Inactivated Comments 07/07/2022 3:47 AM 07/07/2022 6:38 PM Date Activated Date Inactivated Comments 07/24/2023 4:01 AM 07/25/2023 2:59 PM Date Activated Date Inactivated Comments 01/12/2023 3:29 PM 01/13/2023 5:24 PM Date Activated Date Inactivated Comments 01/12/2023 9:45 AM 01/12/2023 3:29 PM Date Activated Date Inactivated Comments 07/07/2022 3:47 AM 07/07/2022 6:38 PM Chief Complaint and Reason for Visit Chief Complaint 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 RETIREMENT 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 WORK Chief Complaint 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 RETIREMENT BLOOD WORK LABWORK LABWORK Chief Complaint RETIREMENT LABWORK RETIREMENT BLOOD WORK LABWORK LABWORK Chief Complaint LABWORK LABWORK LABWORK RETIREMENT LAB WORK Chief Complaint LABWORK LABWORK RETIREMENT LAB WORK RETIREMENT LABWORK Chief Complaint RETIREMENT LAB WOR K RETIREMENT LABWORK LABWORK Chief Complaint RETIREMENT LAB WOR K RETIREMENT LABWORK LABWORK 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 Chief Complaint 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 LABWORK LABWORK LABWORK Chief Complaint 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 LABWORK LABWORK LABWORK RETIREMENT LAB WORK Chief Complaint 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 LABWORK LABWORK LABWORK RETIREMENT LABWORK RETIREMENT LAB WORK Chief Complaint LABWORK LABWORK LABWORK RETIREMENT LABWORK RETIREMENT LAB WORK LABWORK RETIREMENT LABWORK Chief Complaint LABWORK RETIREMENT LABWORK RETIREMENT LAB WORK LABWORK RETIREMENT LABWORK LABWORK Chief Complaint LABWORK RETIREMENT LABWORK RETIREMENT LAB WORK LABWORK RETIREMENT LABWORK LABWORK LABWORK Chief Complaint LABWORK RETIREMENT LABWORK RETIREMENT LAB WORK LABWORK RETIREMENT LABWORK LABWORK LABWORK RETIREMENT LAB WORK Chief Complaint LABWORK RETIREMENT LABWORK LABWORK LABWORK RETIREMENT LAB WORK 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 Chief Complaint LABWORK RETIREMENT LABWORK LABWORK LABWORK RETIREMENT LAB WORK 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 RETIREMENT LAB WORK Chief Complaint LABWORK LABWORK RETIREMENT LAB WORK 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 RETIREMENT LAB WORK LABWORK Chief Complaint 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 RETIREMENT LAB WORK LABWORK RETIREMENT LAB WORK RETIREMENT LAB WORK Chief Complaint LABWORK RETIREMENT LAB WORK RETIREMENT LAB WORK RETIREMENT LAB WORK Chief Complaint RETIREMENT LAB WOR K RETIREMENT LABWORK Chief Complaint RETIREMENT LAB WOR K 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 LABWORK Chief Complaint RETIREMENT LAB WOR K 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 LABWORK LABWORK Chief Complaint RETIREMENT LAB WOR K 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 LABWORK LABWORK RETIREMENT LAB WORK Chief Complaint LABWORK RETIREMENT LAB WORK RETIREMENT LAB WORK Chief Complaint Admit Date LABWORK July 08, 2024 5:00am LABWORK July 29, 2024 5:00am LABWORK September 30, 2024 5:00am Reason for Referral Specialty Diagnoses / Procedures Referred By Contac t Referred To Contact General Surgery: Trauma/ Critical Care / Trauma Surgery Diagnoses Fall at home, initial encounter Radha Moon APRN - EDUCATION ADVISER [address] [facility] [address] [place] [address] [facility] Trauma [address] [facility] [address] [place] [address] Referral ID Status Reason Start Date Expiration Date V isits Requested Visits Authorized [id number] Open Specialty Services Required 06/05/2022 06/05/2023 1 1 Scheduling Instructions [facility] Trauma Surgery- Jessika Collins MD [address] [facility] [address], [address] [place] [address] Comments The patient can be scheduled with any member of the group, including the provider with the first available appointments. Specialty Diagnoses / Procedures Referred By Contac t Referred To Contact Physical Therapy Diagnoses Status post total right knee replacement Primary osteoarthritis of right knee Procedures NC OFFICE/OUTPATIENT NEW HIGH MDM 60-74 MINUTES Abiola Connolly PA-C [address] [facility] [address] [place] [id number] Referral ID Status Reason Start Date Expiration Date Visits Requested Visits Authorized [id number] Pending Review Eval and Treat 3 11/29/2023 99 99 Specialty Diagnoses / Procedures Referred By Contac t Referred To Contact Radiology Diagnoses Right hip pain Procedures MR hip right Almas Avina MD [address] [facility] [address] [place] [address] Referral ID Status Reason Start Date Expiration Date V isits Requested Visits Authorized [id number] Pending Review 09/13/2023 09/12/2024 1 1 Additional Source Comments INFORMATION SOURCE (unrecogn ized section and content) DATE CREATED AUTHOR 08/20/2020 [facility] ([place]) DATE CREATED AUTHOR AUTHOR'S ORGANIZ ATION 11/08/2020 [facility] Ce rita Cariason DATE CREATED AUTHOR AUTHOR'S ORGANIZ ATION 05/25/2022 [facility] DATE CREATED AUTHOR AUTHOR'S ORGANIZ ATION 06/07/2022 [facility] DATE CREATED AUTHOR AUTHOR'S ORGANIZ ATION 06/10/2022 [facility] DATE CREATED AUTHOR AUTHOR'S ORGANIZ ATION 06/22/2022 [facility] DATE CREATED AUTHOR AUTHOR'S ORGANIZ ATION 09/29/2024 [facility] DATE CREATED AUTHOR AUTHOR'S ORGANIZ ATION 03/01/2025 [facility] DATE CREATED AUTHOR AUTHOR'S ORGANIZ ATION 06/14/20[facility] Goals (unrecognized section and content) Goals may be documented in a n alternate sectionGoals may be documented in an alternate sectionGoals may be documented in an alternate sectionGoals may be documented in an alternate sectionGoals may be documented in an alternate sectionGoals may be documented in an alternate sectionGoals may be documented in an alternate sectionGoals may be documented in an alternate sectionGoals may be documented in an alternate sectionGoals may be documented in an alternate sectionGoals may be documented in an alternate sectionGoals may be documented in an alternate sectionGoals may be documented in an alternate sectionGoals may be documented in an alternate sectionGoals may be documented in an alternate sectionGoals may be documented in an alternate sectionGoals may be documented in an alternate sectionGoals may be documented in an alternate sectionGoals may be documented in an alternate sectionGoals may be documented in an alternate sectionGoals may be documented in an alternate sectionGoals may be documented in an alternate sectionGoals may be documented in an alternate sectionGoals may be documented in an alternate sectionGoals may be documented in an alternate sectionGoals may be documented in an alternate sectionGoals may be documented in an alternate sectionGoals may be documented in an alternate sectionGoals may be documented in an alternate section Ordered Prescriptions (unrec ognized section and content) Prescription Sig Dispensed Refills Start Date End Da te HYDROcodone-acetaminophe n (NORCO) 5-325 MG per tabletIndications:Status post reverse total replacement of left shoulder Take 1 tablet by mouth every 6 hours as needed for Pain for up to 7 days. Intended supply: 7 days. Take lowest dose possible to manage pain 28 tablet 0 01/18/2022 01/25/2022 doxycycline hyclate (VIBRA-TABS) 100 MG tablet Take 1 tablet by mouth 2 times daily for 5 days 10 tablet 0 01/18/2022 01/23/2022 Prescription Sig Dispensed Refills Start Date End Da te Ergocalciferol (VITAMIN D) 98616 units CAPS Take 50,000 Units by mouth once a week 5 capsule 0 06/10/2022 carBAMazepine (TEGRETOL) 200 MG tablet Take 1 tablet by mouth 3 times daily 90 tablet 3 06/05/2022 enoxaparin Sodium (LOVENOX) 30 MG/0.3ML injection Inject 0.3 mLs into the skin 2 times daily 0 06/05/2022 oxyCODONE (ROXICODONE) 5 MG immediate release tabletIndications:Acute traumatic pain Take 1 tablet by mouth every 6 hours as needed for Pain for up to 7 days. 28 tablet 0 06/05/2022 06/12/2022 Scheduled Active and Recently Administ ered Medications (unrecognized section and content) Medication Order 01/17/2022 01/18/2022 01/19/2022 0.9 % sodium chloride bolus (COMPLETED) 500 mL (5.13 mL/kg), IntraVENous, at 247.9 mL/hr, Administer over 121 Minutes, ONCE, On Mon01/19/22 at 1300, For 1 dose 1312 (New Bag - Provider: Shelby Vidal RN)1534 (Stopped - Provider: Spencer Brush LPN) acetaminophen (TYLENOL) tablet 1,000 mg (COMPLETED) 1,000 mg, Oral, ONCE, 1 dose, On Mon01/18/22 at 0700, Maximum dose of acetaminophen is 4000 mg from all sources in 24 hours. Do not administer if patient has taken tylenol <4 hours earlier. Do not give if contraindicated ie. patient has active liver disease or cirrhosis., Pre-op (day of surgery) 0705 (Given - Provider: Monique Bang RN) acetaminophen (TYLENOL) tablet 650 mg 650 mg, Oral, EVERY 6 HOURS, First dose on Mon01/18/22 at 1345, Until Discontinued, Maximum dose of acetaminophen is 4000 mg from all sources in 24 hours., Post-op 1505 (Not Given - Provider: Marjorie Carrillo RN - Reason: Patient/family refused)2037 (Given - Provider: Sawyer Beal RN) 0145 (Not Given - Provider: Sawyer Beal RN - Reason: Patient/family refused - Comment: Pt stated previously to please not wake her up if she is sleeping)08 (Given - Provider: Spencer Brush LPN)1314 (Given - Provider: Shelby Vidal, SHA)1944 (Due) albuterol sulfate HFA (PROVENTIL;VENTOLIN;PROAIR) 108 (90 Base) MCG/ACT inhaler 2 puff 2 puff, Inhalation, 4 TIMES DAILY, First dose on Mon01/18/22 at 1700, Until Discontinued, Initiate RT Bronchodilator Protocol: Yes 1655 (Not Given - Provider: Spencer Brush LPN - Reason: Medication not available)2213 (Not Given - Provider: Vicente Mcdowell RCP - Reason: Patient/family refused) 0949 (Given - Provider: Neville Santo RCP)131 (Given - Provider: Neville Santo RCP)1700 (Due)2100 (Due) busPIRone (BUSPAR) tablet 10 mg 10 mg, Oral, 3 TIMES DAILY, First dose on Mon01/18/22 at 1615, Until Discontinued 1655 (Not Given - Provider: Spencer Brush LPN - Reason: Medication not available)2041 (Given - Provider: Sawyer Beal RN) 08 (Given - Provider: Spencer Brush LPN)1314 (Given - Provider: Shelby Vidal RN)2100 (Due) carBAMazepine (TEGRETOL) tablet 200 mg 200 mg, Oral, 3 TIMES DAILY, First dose on Mon01/18/22 at 1615, Until Discontinued 1655 (Not Given - Provider: Spencer Brush LPN - Reason: Medication not available)2041 (Given - Provider: Sawyer Beal RN) 0813 (Given - Provider: Spencer Brush LPN)1314 (Given - Provider: Shelby Vidal RN)2100 (Due) ceFAZolin (ANCEF) 2000 mg in dextrose 4 % 100 mL IVPB (premix) (COMPLETED) 2,000 mg, IntraVENous, CONTINUOUS PICKLING LINE PICKLER TO O.R., 1 dose, On Mon01/18/22 at 0700, Antimicrobial Indications: Surgical Prophylaxis, Administer within 1 hour prior to incision. 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 or) ceFAZolin (ANCEF) 2000 mg in dextrose 4 % 100 mL IVPB (premix) () 2,000 mg, IntraVENous, EVERY 8 HOURS, 2 doses, First dose on Mon01/18/22 at 1345, Last dose on Mon01/18/22 at 1600, Antimicrobial Indications: Surgical Prophylaxis, Post-op 1345 (Canceled Entry - Provider: Marjorie Carrillo RN)1745 (New Bag - Provider: Marjorie Carrillo RN)1820 (Stopped - Provider: Marjorie Carrillo RN) clopidogrel (PLAVIX) tablet 75 mg 75 mg, Oral, DAILY, First dose on Mon01/18/22 at 1615, Until Discontinued 1655 (Not Given - Provider: Spencer Bursh LPN - Reason: Medication not available) 0813 (Given - Provider: Spencer Brush LPN) famotidine (PEPCID) tablet 20 mg (COMPLETED) 20 mg, Oral, ONCE, 1 dose, On Mon01/18/22 at 0700, Pre-op (day of surgery) 0705 (Given - Provider: Monique Bang RN) fludrocortisone (FLORINEF) tablet 0.1 mg 0.1 mg, Oral, DAILY, First dose on Mon01/18/22 at 1615, Until Discontinued 165 (Not Given - Provider: Spencer Brush LPN - Reason: Medication not available) 0813 (Given - Provider: Spencer Brush LPN) levothyroxine (SYNTHROID) tablet 175 mcg 175 mcg, Oral, DAILY, First dose on Mon01/18/22 at 1615, Until Discontinued, Tube feeding (TF) interaction, obtain physician order to manage, recommend holding TF for 30 minutes before and after dose. 0620 (Not Given - Provider: Sawyer Beal RN - Reason: Other - Comment: duplicate order)0628 (Given - Provider: Sawyer Beal RN) methylPREDNISolone sodium (SOLU-MEDROL) injection 125 mg 125 mg, IntraVENous, ONCE, On Mon01/18/22 at 1800, For 1 dose 1800 (Due) metoclopramide (REGLAN) injection 10 mg 10 mg, IntraVENous, EVERY 6 HOURS, First dose on Mon01/18/22 at 1800, Until Discontinued 1800 (Due) 0013 (Given - Provider: Sawyer Beal RN)0628 (Given - Provider: Sawyer Beal RN)1315 (Given - Provider: Shelby Vidal RN)1841 (Not Given - Provider: Shelby Vidal RN - Reason: Loss of IV access) midodrine (PROAMATINE) tablet 5 mg 5 mg, Oral, 3 TIMES DAILY, First dose on Mon01/18/22 at 1800, Until Discontinued, Do not give after 1800 or within 4 hrs of bedtime. 1656 (Not Given - Provider: Spencer Brush LPN - Reason: Medication not available) 0813 (Given - Provider: Spencer Brush LPN)1315 (Given - Provider: Shelby Vidal RN)1733 (Given - Provider: Spencer Brush LPN) mometasone-formoterol (DULERA) 200-5 MCG/ACT inhaler 2 puff 2 puff, Inhalation, 2 TIMES DAILY, First dose on Mon01/18/22 at 2000, Until Discontinued, Rinse mouth out with water (without swallowing) after every dose. 2214 (Not Given - Provider: Vicente Mcdowell RCP - Reason: Patient/family refused) 0949 (Given - Provider: Neville Santo RCP)1999 (Due) pantoprazole (PROTONIX) tablet 40 mg 40 mg, Oral, DAILY BEFORE BREAKFAST, First dose on Mon01/19/22 at 0700, Until Discontinued, Do not crush or break. 0635 (Not Given - Provider: Sawyer Beal RN - Reason: Patient/family refused) pravastatin (PRAVACHOL) tablet 40 mg 40 mg, Oral, DAILY, First dose on Mon01/18/22 at 1615, Until Discontinued 1655 (Not Given - Provider: Spencer Brush LPN - Reason: Medication not available) 0814 (Given - Provider: Spencer Brush LPN) pregabalin (LYRICA) capsule 150 mg 150 mg, Oral, 2 TIMES DAILY, First dose on Mon01/18/22 at 2100, Until Discontinued 2037 (Given - Provider: Sawyer Beal RN) 0813 (Given - Provider: Spencer Brush LPN)2099 (Due) risperiDONE (RISPERDAL) tablet 0.5 mg 0.5 mg, Oral, DAILY, First dose on Mon01/18/22 at 1615, Until Discontinued 1655 (Not Given - Provider: Spencer Brush LPN - Reason: Medication not available) 0814 (Given - Provider: Spencer Brush LPN) sodium chloride flush 0.9 % injection 5-40 mL 5-40 mL, IntraVENous, EVERY 12 HOURS SCHEDULED (2 times per day), First dose on Mon01/18/22 at 2099, Until Discontinued, For Line Patency: Peripheral IV = 5 mL; Midline or Central Line = 10 mL/lumen. If following IV push medication, administer flush at same rate as the IV push. Flush volume is determined by type of infusion therapy being given. For non-viscous solutions use: Peripheral IV = 5 mL Midline or Central Line = 10 mL/lumen For viscous solutions (i.e. blood components, parenteral nutrition, contrast media, or after obtaining blood sample) use: Peripheral IV = 10 mL Midline or Central Line = 20 mL/lumen, Post-op 2037 (Given - Provider: Sawyer Beal RN) 0816 (Given - Provider: Spencer Brush LPN)2099 (Due) traZODone (DESYREL) tablet 50 mg 50 mg, Oral, NIGHTLY, First dose on Mon01/18/22 at 2100, Until Discontinued 2040 (Given - Provider: Sawyer Beal RN) 2100 (Due) venlafaxine (EFFEXOR XR) extended release capsule 37.5 mg 37.5 mg, Oral, DAILY, First dose on Mon01/18/22 at 1615, Until Discontinued, Do not crush or break. 1656 (Not Given - Provider: Spencer Brush LPN - Reason: Medication not available) 0814 (Given - Provider: Spencer Brush LPN) vitamin D (ERGOCALCIFEROL) capsule 50,000 Units 50,000 Units, Oral, WEEKLY, First dose on Mon01/21/22 at 0900, Until Discontinued Continuous Medication Order 01/17/2022 01/18/2022 01/19/2022 lactated ringers infusion (CANCELED) IntraVENous, at 50 mL/hr, CONTINUOUS, Starting on Mon01/18/22 at 0700, Upon admission to sameday - please start iv if patient does not have iv access. Use 500ml NS for patients on dialysis., Pre-op (day of surgery) 721 (New Bag - Provider: Steffanie Bang RN) PRN Medication Order 01/17/2022 01/18/2022 01/19/2022 0.9 % sodium chloride infusion IntraVENous, at 5-250 mL/hr, PRN, if patient receiving piggyback infusions and maintenance fluids are not ordered OR KVO fluids to protect IV site / prevent frequent line interruptions/ long duration, Starting on Mon01/18/22 at 1318, For piggyback infusion, administer at same rate as piggyback for a total of 25 mL. Enter 25 mL into dose field and piggyback rate into rate field of order. If piggyback is infusing at a rate less than 100 mL/hr, enter 25 mL into dose field and 100 mL/hr into rate field of order. For KVO fluids, enter rate of 20 mL/hr or less into rate field of order., Post-op acetaminophen (TYLENOL) tablet 650 mg 650 mg, Oral, EVERY 6 HOURS PRN, Starting on Mon01/18/22 at 1543, Until Discontinued, Pain Mild (1-3), Fever, Maximum dose of acetaminophen is 4000 mg from all sources in 24 hours. 1734 (Given - Provid er: Spencer Brush LPN) bisacodyl (DULCOLAX) EC tablet 5 mg 5 mg, Oral, DAILY PRN, Starting on Mon01/18/22 at 1543, Until Discontinued, Constipation, Do not crush or break. dicyclomine (BENTYL) capsule 10 mg 10 mg, Oral, 4 TIMES DAILY PRN, Starting on Mon01/18/22 at 1543, Until Discontinued, for cramping hydrALAZINE (APRESOLINE) injection 5 mg 5 mg, IntraVENous, EVERY 6 HOURS PRN, Starting on Mon01/18/22 at 1546, Until Discontinued, High Blood Pressure HYDROmorphone (DILAUDID) injection 0.5 mg (CANCELED) HYDROmorphone (DILAUDID) 1.5mg IV is equivalent to morphine 10mg IV, 0.5 mg, IntraVENous, EVERY 5 MIN PRN, 4 doses, Starting on Mon01/18/22 at 1030, Until Mon01/18/22 at 1242, Pain Severe (7-10), Phase I or Phase II- Initial therapy for severe pain (7-10). Restricted to a 90 minute time frame starting when the patient can verbally state their pain score. If oral meds are utilized, do not return to initial therapy medications. SDS and, PACU only 1042 (Given - Provider: Lacy Gonsalves RN) loperamide (IMODIUM) capsule 2 mg 2 mg, Oral, EVERY 4 HOURS PRN, Starting on Mon01/18/22 at 1544, Until Discontinued, Diarrhea, After each loose stool. 2038 (Given - Provider: Sawyer Beal RN) 12 (Given - Provider: Sawyer Beal RN) metoclopramide (REGLAN) tablet 5 mg 5 mg, Oral, 3 TIMES DAILY PRN, Starting on Mon01/18/22 at 1544, Until Discontinued, Nausea 2040 (Given - Provider: Sawyer Beal RN) morphine sulfate (PF) injection 2 mg 2 mg, IntraVENous, EVERY 2 HOURS PRN, Starting on Mon01/19/22 at 0002, Until Discontinued, Pain Severe (7-10), If oral and IV narcotics ordered, use oral first and only use IV if oral is ineffective or cannot take oral. Do Not give oral and IV within 1 hour of each other unless specifically ordered. 0013 (Given - Provid er: Sawyer Beal RN)0406 (Given - Provider: Sawyer Beal RN) ondansetron (ZOFRAN) injection 4 mg(Linked Group 1) 4 mg, IntraVENous, EVERY 6 HOURS PRN, Starting on Mon01/18/22 at 1318, Until Discontinued, Nausea, Vomiting, Administer if oral route cannot be used., Post-op ondansetron (ZOFRAN) tablet 4 mg 4 mg, Oral, EVERY 6 HOURS PRN, Starting on Mon01/18/22 at 1544, Until Discontinued, Nausea, Vomiting 0406 (Given - Provid er: Sawyer Beal RN) ondansetron (ZOFRAN-ODT) disintegrating tablet 4 mg(Linked Group 1) 4 mg, Oral, EVERY 8 HOURS PRN, Starting on Mon01/18/22 at 1318, Until Discontinued, Nausea, Vomiting, Post-op sodium chloride flush 0.9 % injection 5-40 mL 5-40 mL, IntraVENous, PRN, Starting on Mon01/18/22 at 1318, Until Discontinued, Line Care, After every IV line use, For Line Patency: Peripheral IV = 5 mL; Midline or Central Line = 10 mL/lumen. If following IV push medication, administer flush at same rate as the IV push. Flush volume is determined by type of infusion therapy being given. For non-viscous solutions use: Peripheral IV = 5 mL Midline or Central Line = 10 mL/lumen For viscous solutions (i.e. blood components, parenteral nutrition, contrast media, or after obtaining blood sample) use: Peripheral IV = 10 mL Midline or Central Line = 20 mL/lumen, Post-op traMADol (ULTRAM) tablet 50 mg 50 mg, Oral, EVERY 6 HOURS PRN, Starting on Mon01/18/22 at 1544, Until Discontinued, Pain Moderate (4-6), Pain Severe (7-10) 2038 (Given - Provider: Sawyer Beal RN) 1314 (Given - Provider: Shelby Vidal RN) Ubrogepant TABS 1 capsule 1 capsule, Oral, DAILY PRN, headache, Starting on Mon01/18/22 at 1545 Linked Groups Order Group 1: ondansetron (ZOFRAN-ODT) disintegrating tablet 4 mgJump to med 4 mg, Oral, EVERY 8 HOURS PRN, Starting on Mon01/18/22 at 1318, Until Discontinued, Nausea, Vomiting, Post-op Or ondansetron (ZOFRAN) injection 4 mgJump to med 4 mg, IntraVENous, EVERY 6 HOURS PRN, Starting on Mon01/18/22 at 1318, Until Discontinued, Nausea, Vomiting
Administer if oral route cannot be used.
Post-op Scheduled Medication Order 06/03/2022 06/04/2022 06/05/2022 acetaminophen (TYLENOL) tablet 1,000 mg 1,000 mg, Oral, EVERY 8 HOURS SCHEDULED (3 times per day), First dose on Mon05/30/22 at 1400, Until Discontinued, Maximum dose of acetaminophen is 4000 mg from all sources in 24 hours. 0553 (Given - Provider: Walter Mckeon LPN)141 (Given - Provider: Maria D Quinonez RN)2005 (Given - Provider: Susan Weeks RN) 06 (Given - Provider: Urvashi Garza RN)142 (Given - Provider: Gerardo Last, SHA)2118 (Given - Provider: Juan Manuel Santos, SHA) 05 (Given - Provider: Juan Manuel Santos, SHA)1415 (Given - Provider: Gerardo Last RN)2199 (Due) bisacodyl (DULCOLAX) EC tablet 5 mg 5 mg, Oral, DAILY, First dose on Mon05/30/22 at 2200, Until Discontinued, Do not crush or break. 2006 (Given - Provider: Susan Weeks RN) 2119 (Given - Provider: Juan Manuel Santos, SHA) 2199 (Due) busPIRone (BUSPAR) tablet 10 mg 10 mg, Oral, 3 TIMES DAILY, First dose on Mon05/30/22 at 1400, Until Discontinued 0755 (Given - Provider: Lisha Harrington RN)1412 (Given - Provider: Maria D Quinonez RN)2005 (Given - Provider: Susan Weeks, SHA) 0959 (Given - Provider: Gerardo Last RN)142 (Given - Provider: Gerardo Last RN)2118 (Given - Provider: Juan Manuel Santos RN) 08 (Given - Provider: Gerardo Last RN)141 (Given - Provider: Gerardo Last RN)2099 (Due) carBAMazepine (TEGRETOL) tablet 200 mg 200 mg, Oral, 3 TIMES DAILY, First dose on Mon05/31/22 at 1400, Until Discontinued 075 (Given - Provider: Lisha Harrington, SHA)141 (Given - Provider: Maria D Quinonez RN)2005 (Given - Provider: Susan Weeks RN) 09 (Given - Provider: Gerardo Last RN)142 (Given - Provider: Gerardo Last RN)2118 (Given - Provider: Juan Manuel Santos RN) 08 (Given - Provider: Gerardo Last RN)141 (Given - Provider: Gerardo Last RN)2099 (Due) enoxaparin Sodium (LOVENOX) injection 30 mg 30 mg, SubCUTAneous, 2 TIMES DAILY, First dose on Mon06/01/22 at 2100, Until Discontinued, Indication of Use: Prophylaxis-DVT/PE 0754 (Given - Provider: Lisha Harrington RN)2005 (Given - Provider: Susan Weeks, SHA) 0959 (Given - Provider: Gerardo Last RN)2119 (Given - Provider: Juan Manuel Santos, SHA) 08 (Given - Provider: Gerardo Last RN)2099 (Due) fludrocortisone (FLORINEF) tablet 0.1 mg 0.1 mg, Oral, DAILY, First dose on Mon05/30/22 at 1330, Until Discontinued 075 (Given - Provider: Lisha Harrington RN) 0959 (Not Given - Provider: Gerardo Last RN - Reason: Patient/family refused) 08 (Given - Provider: Gerardo Last, SHA) levothyroxine (SYNTHROID) tablet 150 mcg 150 mcg, Oral, DAILY, First dose on Mon05/30/22 at 1330, Until Discontinued, Tube feeding (TF) interaction, obtain physician order to manage, recommend holding TF for 30 minutes before and after dose. 0553 (Given - Provider: Walter Mckeon LPN) 0608 (Given - Provider: Urvashi Garza RN) 0519 (Given - Provider: Juan Manuel Santos RN) melatonin tablet 5 mg 5 mg, Oral, DAILY, First dose on Mon05/30/22 at 1330, Until Discontinued 2005 (Given - Provider: Susan Weeks RN) 2118 (Given - Provider: Juan Manuel Santos RN) 2099 (Due) methocarbamol (ROBAXIN) tablet 500 mg 500 mg, Oral, 3 TIMES DAILY, First dose on Mon05/31/22 at 0900, Until Discontinued 0900 (Automatically Held - Provider: FREDERICK Eisenberg CNP)1400 (Automatically Held - Provider: FREDERICK Eisenberg CNP)2100 (Automatically Held - Provider: FREDERICK Eisenberg CNP) 0900 (Automatically Held - Provider: FREDERICK Eisenberg CNP)1400 (Automatically Held - Provider: FREDERICK Eisenberg CNP)2100 (Automatically Held - Provider: FREDERICK Eisenberg CNP) 0900 (Automatically Held - Provider: FREDERICK Eisenberg CNP)1400 (Automatically Held - Provider: FREDERICK Eisenberg CNP)2100 (Automatically Held - Provider: FREDERICK Eisenberg CNP) metoclopramide (REGLAN) injection 5 mg (CANCELED) 5 mg, IntraVENous, 2 TIMES DAILY, First dose (after last modification) on Mon05/31/22 at 2100, Until Discontinued 075 (Given - Provider: Lisha Harrington RN) midodrine (PROAMATINE) tablet 5 mg 5 mg, Oral, 3 TIMES DAILY, First dose on Mon05/30/22 at 1400, Until Discontinued, Do not give after 1800 or within 4 hrs of bedtime. 0754 (Given - Provider: Lisha Harrington, SHA)141 (Given - Provider: Maria D Quinonez RN)2006 (Given - Provider: Susan Weeks RN) 999 (Given - Provider: Gerardo Last, SHA)142 (Given - Provider: Gerardo Last RN)2121 (Given - Provider: Juan Manuel Santos, RN) 08 (Given - Provider: Gerardo Last, RN)141 (Given - Provider: Gerardo Last RN)2099 (Due) pantoprazole (PROTONIX) tablet 40 mg 40 mg, Oral, 2 times daily, First dose on Mon05/30/22 at 1345, Until Discontinued, Do not crush or break. 0754 (Given - Provider: Lisha Harrington RN)2006 (Given - Provider: Susan Weeks RN) 958 (Given - Provider: Gerardo Last RN)2118 (Given - Provider: Juan Manuel Santos, RN) 08 (Given - Provider: Gerardo Last RN)2100 (Due) polyethylene glycol (GLYCOLAX) packet 17 g 17 g, Oral, DAILY, First dose on Mon05/30/22 at 1115, Until Discontinued, Stir and dissolve one packet of powder (17 g) in any 4 to 8 ounces of beverage (cold, hot or room temperature) then drink 0754 (Given - Provider: Lisha Harrington RN) 09 (Not Given - Provider: Gerardo Last RN - Reason: Patient/family refused) 08 (Not Given - Provider: Gerardo Last RN - Reason: Contraindicated) pravastatin (PRAVACHOL) tablet 40 mg 40 mg, Oral, DAILY, First dose on Mon05/30/22 at 1330, Until Discontinued 0755 (Given - Provider: Lisha Harrington RN) 958 (Given - Provider: Gerardo Last RN) 08 (Given - Provider: Gerardo Last RN) pregabalin (LYRICA) capsule 150 mg 150 mg, Oral, 2 TIMES DAILY, First dose on Mon05/30/22 at 1345, Until Discontinued 0755 (Given - Provider: Lisha Harrington RN)2006 (Given - Provider: Susan Weeks RN) 958 (Given - Provider: Gerardo Last RN)2119 (Given - Provider: Juan Manuel Santos, RN) 08 (Given - Provider: Gerardo Last RN)2100 (Due) risperiDONE (RISPERDAL) tablet 0.5 mg 0.5 mg, Oral, 2 TIMES DAILY, First dose on Mon05/30/22 at 1330, Until Discontinued 0754 (Given - Provider: Lisha Harrington RN)2006 (Given - Provider: Susan Weeks, RN) 999 (Given - Provider: Gerardo Last RN)2120 (Given - Provider: Juan Manuel Santos, RN) 0813 (Given - Provider: Gerardo Last RN)2100 (Due) sodium chloride flush 0.9 % injection 5-40 mL 5-40 mL, IntraVENous, EVERY 12 HOURS SCHEDULED (2 times per day), First dose on Mon05/30/22 at 1115, Until Discontinued, For Line Patency: Peripheral IV = 5 mL; Midline or Central Line = 10 mL/lumen. If following IV push medication, administer flush at same rate as the IV push. Flush volume is determined by type of infusion therapy being given. For non-viscous solutions use: Peripheral IV = 5 mL Midline or Central Line = 10 mL/lumen For viscous solutions (i.e. blood components, parenteral nutrition, contrast media, or after obtaining blood sample) use: Peripheral IV = 10 mL Midline or Central Line = 20 mL/lumen 0759 (Given - Provider: Lisha Harrington RN)2308 (Not Given - Provider: Susan Weeks RN - Reason: IV Fluid Infusing) 1000 (Given - Provider: Gerardo Last RN)212 (Given - Provider: Juan Manuel Santos RN) 08 (Given - Provider: Gerardo Last RN)2100 (Due) traZODone (DESYREL) tablet 50 mg 50 mg, Oral, NIGHTLY, First dose on Mon05/30/22 at 2100, Until Discontinued 2006 (Given - Provider: Susan Weeks RN) 2118 (Given - Provider: Juan Manuel Santos, SHA) 2100 (Due) venlafaxine (EFFEXOR XR) extended release capsule 37.5 mg 37.5 mg, Oral, DAILY, First dose (after last modification) on Mon06/01/22 at 0900, Until Discontinued, Do not crush or break. 0758 (Given - Provider: Lisha Harrington RN) 1037 (Given - Provider: Gerardo Last RN) 0817 (Given - Provider: Gerardo Last RN) vitamin D (ERGOCALCIFEROL) capsule 50,000 Units 50,000 Units, Oral, WEEKLY, First dose on Mon06/03/22 at 0900, Until Discontinued 1053 (Given - Provider: Maria D Quinonez RN) PRN Medication Order 06/03/2022 06/04/2022 06/05/2022 0.9 % sodium chloride infusion IntraVENous, at 5-250 mL/hr, PRN, if patient receiving piggyback infusions and maintenance fluids are not ordered OR KVO fluids to protect IV site / prevent frequent line interruptions/ long duration, Starting on Mon05/30/22 at 1101, For piggyback infusion, administer at same rate as piggyback for a total of 25 mL. Enter 25 mL into dose field and piggyback rate into rate field of order. If piggyback is infusing at a rate less than 100 mL/hr, enter 25 mL into dose field and 100 mL/hr into rate field of order. For KVO fluids, enter rate of 20 mL/hr or less into rate field of order. albuterol (PROVENTIL) nebulizer solution 1.25 mg 1.25 mg, Nebulization, EVERY 6 HOURS PRN, Starting on Mon05/31/22 at 1237, Until Discontinued, Wheezing, Initiate RT Bronchodilator Protocol: Yes - Inpatient Protocol naloxone (NARCAN) injection 0.4 mg 0.4 mg, IntraVENous, PRN, Starting on Mon05/31/22 at 1340, Until Discontinued, Opioid Reversal ondansetron (ZOFRAN) injection 4 mg(Linked Group 1) 4 mg, IntraVENous, EVERY 6 HOURS PRN, Starting on Mon05/30/22 at 1101, Until Discontinued, Nausea, Vomiting, Administer if oral route cannot be used. 181 (Given - Provider: Lisha Harrington, SHA) ondansetron (ZOFRAN-ODT) disintegrating tablet 4 mg(Linked Group 1) 4 mg, Oral, EVERY 8 HOURS PRN, Starting on Mon05/30/22 at 1101, Until Discontinued, Nausea, Vomiting 1811 (See Alternative - Provider: Lisha Harrington, SHA) oxyCODONE (ROXICODONE) immediate release tablet 2.5 mg(Linked Group 2) 2.5 mg, Oral, EVERY 4 HOURS PRN, Starting on Mon05/31/22 at 1424, Until Discontinued, Pain Moderate (4-6) 0446 (See Alternative - Provider: Walter Mckeon LPN)1412 (See Alternative - Provider: Maria D Quinonez, SHA)2007 (See Alternative - Provider: Susan Weeks, SHA) 0148 (See Alternative - Provider: Donell Singh RN)0604 (See Alternative - Provider: Urvashi Garza, RN)1008 (See Alternative - Provider: Gerardo Last, RN) oxyCODONE (ROXICODONE) immediate release tablet 5 mg(Linked Group 2) 5 mg, Oral, EVERY 4 HOURS PRN, Starting on Mon05/31/22 at 1424, Until Discontinued, Pain Severe (7-10) 0446 (Given - Provider: Walter Mckeon LPN)1412 (Given - Provider: Maria D Quinonez, SHA)2006 (Given - Provider: Susan Weeks RN) 0148 (Given - Provider: Donell Singh RN)0604 (Given - Provider: Urvashi Garza, SHA)1008 (Given - Provider: Gerardo Last, SHA) senna (SENOKOT) tablet 8.6 mg 8.6 mg (1 tablet), Oral, DAILY PRN, Starting on Mon05/30/22 at 1105, Until Discontinued, Constipation, First line therapy for constipation sodium chloride flush 0.9 % injection 5-40 mL 5-40 mL, IntraVENous, PRN, Starting on Mon05/30/22 at 1101, Until Discontinued, Line Care, After every IV line use, For Line Patency: Peripheral IV = 5 mL; Midline or Central Line = 10 mL/lumen. If following IV push medication, administer flush at same rate as the IV push. Flush volume is determined by type of infusion therapy being given. For non-viscous solutions use: Peripheral IV = 5 mL Midline or Central Line = 10 mL/lumen For viscous solutions (i.e. blood components, parenteral nutrition, contrast media, or after obtaining blood sample) use: Peripheral IV = 10 mL Midline or Central Line = 20 mL/lumen Linked Groups Order Group 1: ondansetron (ZOFRAN-ODT) disintegrating tablet 4 mgJump to med 4 mg, Oral, EVERY 8 HOURS PRN, Starting on Mon05/30/22 at 1101, Until Discontinued, Nausea, Vomiting Or ondansetron (ZOFRAN) injection 4 mgJump to med 4 mg, IntraVENous, EVERY 6 HOURS PRN, Starting on Mon05/30/22 at 1101, Until Discontinued, Nausea, Vomiting
Administer if oral route cannot be used.
Group 2: oxyCODONE (ROXICODONE) immediate release tablet 2.5 mgJump to med 2.5 mg, Oral, EVERY 4 HOURS PRN, Starting on Mon05/31/22 at 1424, Until Discontinued, Pain Moderate (4-6) Or oxyCODONE (ROXICODONE) immediate release tablet 5 mgJump to med 5 mg, Oral, EVERY 4 HOURS PRN, Starting on Mon05/31/22 at 1424, Until Discontinued, Pain Severe (7-10) Scheduled Medication Order 01/11/2023 01/12/2023 01/13/2023 acetaminophen (Tylenol) tablet 1,000 mg (COMPLETED) 1,000 mg, Oral, Once, On Fariha 01/12/23 at 1000, For 1 dose, Preprocedure, Maximum dose of acetaminophen is 4000 mg from all sources in 24 hours. Do not administer if patient has taken tylenol <4 hours earlier. Do not give if contraindicated ie. patient has active liver disease or cirrhosis. 1030 (Given - Provider: Paula Armstrong RN) busPIRone (Buspar) tablet 10 mg 10 mg, Oral, 3 times daily, First dose on Fariha 01/12/23 at 1700 1700 (Not Given - Provider: Shebly Vidal RN - Reason: Medication not available)2023 (Given - Provider: Andre Mijares RN) 0815 (Given - Provider: Marjorie Carrillo RN)1440 (Given - Provider: Marjorie Carrillo RN) carBAMazepine (TEGretol) tablet 200 mg 200 mg, Oral, 3 times daily, First dose on Fariha 01/12/23 at 1700 1700 (Not Given - Provider: Shelby Vidal RN - Reason: Medication not available)2023 (Given - Provider: Andre Mijares RN) 0815 (Given - Provider: Marjorie Carrillo RN)1440 (Given - Provider: Marjorie Carrillo RN) ceFAZolin in dextrose 4% (Ancef) IVPB 2,000 mg (COMPLETED) 2,000 mg, IntraVENous, Administer over 30 Minutes, Once, On Fariha 01/12/23 at 1000, For 1 dose, Preprocedure, Administer within 1 hour prior to incision. Recommend to repeat in 3-4 hours after initial dose if still intra-op. premix bag, Suspected Indication (Select all that apply): Surgical Prophylaxis 1106 (Given - Provider: Isabel Howe APRN - [employer]) ceFAZolin Sodium 2,000 mg in sodium chloride 0.9 % 100 mL IVPB (COMPLETED) 2,000 mg, IntraVENous, at 200 mL/hr, Administer over 30 Minutes, Every 8 hours, First dose on Fariha 01/12/23 at 1900, For 2 doses, Phase II/On Unit, Mini-Bag Plus bag, Suspected Indication (Select all that apply): Surgical Prophylaxis 2022 (New Bag - Provider: Andre Mijares RN)2052 (Stopped - Provider: Andre Mijares RN) 313 (New Bag - Provider: Andre Mijares RN)343 (Stopped - Provider: Andre Mijares RN) dexAMETHasone (Decadron) tablet 8 mg (COMPLETED) 8 mg, Oral, Every 6 hours scheduled (4 times per day), First dose on Fariha 01/12/23 at 1700, For 2 doses, Phase II/On Unit 1734 (Given - Provider: Shelby Vidal RN) 001 (Given - Provider: Andre Mijares RN) enoxaparin (Lovenox) syringe 40 mg 40 mg, SubCUTAneous, Daily, First dose on Mon01/13/23 at 0900, For 15 days, Phase II/On Unit, Begin morning of POD 1 , Indication of Use: Prophylaxis-DVT/PE, Indications: Prophylaxis of Venous Thromboembolism 0815 (Given - Provider: Marjorie Carrillo, SHA) famotidine (Pepcid) tablet 20 mg 20 mg, Oral, 2 times daily, First dose on Fariha 01/12/23 at 2100, Phase II/On Unit 2025 (Given - Provider: Andre Mijares RN) 0816 (Given - Provider: Marjorie Carrillo, SHA) famotidine (Pepcid) tablet 20 mg (COMPLETED) 20 mg, Oral, Once, On Fariha 01/12/23 at 1000, For 1 dose, Preprocedure 1030 (Given - Provider: Paula Armstrong, SHA) fludrocortisone (Florinef) tablet 0.1 mg 0.1 mg, Oral, Daily, First dose on Fariha 01/12/23 at 1700 1700 (Not Given - Provider: Shelby Vidal RN - Reason: Medication not available) 0816 (Given - Provider: Marjorie Carrillo RN) levothyroxine (Synthroid, Levoxyl) tablet 150 mcg 150 mcg, Oral, Daily, First dose on Fariha 01/12/23 at 1800, Tube feeding (TF) interaction, obtain physician order to manage, recommend holding TF for 30 minutes before and after dose. 1800 (Not Given - Provider: Shelby Vidal RN - Reason: Contraindicated - Comment: pt took at home) 0815 (Given - Provider: Marjorie Carrillo RN) Melatonin capsule 10 mg 10 mg, Oral, Nightly, First dose on Fariha 01/12/23 at 2100 2023 (Given - Provider: Andre Mijares, SHA) midodrine (Proamatine) tablet 5 mg 5 mg, Oral, 3 times daily, First dose on Fariha 01/12/23 at 1700 1700 (Not Given - Provider: Shelby Vidal RN - Reason: Medication not available)2100 (Not Given - Provider: Andre Mijares RN - Reason: Patient/family refused) 0816 (Given - Provider: Marjorie Carrillo RN)1440 (Given - Provider: Marjorie Carrillo RN) mirtazapine (Remeron) tablet 15 mg 15 mg, Oral, Daily, First dose on Fariha 01/12/23 at 1700 2024 (Given - Provider: Andre Mijares, SHA) Nozin Nasal Gi Asst Popswab 2 Swab (COMPLETED) 2 Swab (1 Package), Topical, Once, On Mon01/12/23 at 1000, For 1 dose, Preprocedure, Flip ampule around in paper sleeve to expose swab tip. Shake well. With sleeve on ampule, crush at dot to pop. Squeeze to wet swab tip. Swab around nostril rims 8 times in each direction. Squeeze to rewet swab tip and repeat. Repeat for other nostril. Caution : Do not extend in nose beyond swab tip. Appy to skin only. Discard after use. 1000 (Given - Provider: Paula Armstrong, SHA) pravastatin (Pravachol) tablet 40 mg 40 mg, Oral, Daily, First dose on Fariha 01/12/23 at 1700 202 (Given - Provider: Andre Mijares RN) 0816 (Given - Provider: Marjorie Carrillo, RN) pregabalin (Lyrica) capsule 150 mg 150 mg, Oral, 2 times daily, First dose on Fariha 01/12/23 at 2099 2025 (Given - Provider: Andre Mijares RN) 0816 (Given - Provider: Marjorie Carrillo, RN) risperiDONE (RisperDAL) tablet 0.5 mg 0.5 mg, Oral, 2 times daily, First dose on Fariha 01/12/23 at 2099 2025 (Given - Provider: Andre Mijares RN) 0816 (Given - Provider: Marjorie Carrillo, RN) ropivacaine (Naropin) 5 MG/ML 15 mL, EPINEPHrine (Adrenalin) 30 MG/30ML 0.125 mL in sodium chloride (PF) 0.9 % 15 mL syringe (COMPLETED) 1 Syringe, Intra-artICUlar, Once, On Fariha 01/12/23 at 1230, For 1 dose, Intraprocedure 1132 (Given - Provider: Liliana Ceja RN - Comment: RIGHT KNEE) sodium chloride 0.9% (NS) flush 10 mL 10 mL, IntraVENous, Every 12 hours scheduled (2 times per day), First dose on Fariha 01/12/23 at 2099, Phase II/On Unit 2052 (Given - Provider: Andre Mijares RN) 0816 (Given - Provider: Marjorie Carrillo, RN) traMADol (Ultram) tablet 50 mg 50 mg, Oral, Every 6 hours, First dose on Fariha 01/12/23 at 1530, Phase II/On Unit, Patient may refuse medication if they feel they do not need it. 1603 (Given - Provider: Shelby Vidal RN)2033 (Given - Provider: Andre Mijares RN) 0314 (Given - Provider: Andre Mijares RN)0830 (Given - Provider: Marjorie Carrillo, RN)1449 (Given - Provider: Marjorie Carrillo, RN) traZODone (Desyrel) tablet 50 mg 50 mg, Oral, Nightly, First dose on Fariha 01/12/23 at 2099 2023 (Given - Provider: Andre K. Ollom, RN) venlafaxine XR (Effexor XR) 24 hr capsule 75 mg 75 mg, Oral, Daily, First dose on Fariha 01/12/23 at 1700, Do not crush or chew. 1700 (Not Given - Provider: Shelby Vidal RN - Reason: Medication not available) 0815 (Given - Provider: Marjorie Carrillo RN) Continuous Medication Order 01/11/2023 01/12/2023 01/13/2023 lactated Ringer's infusion 50 mL/hr, IntraVENous, Continuous, Starting on Fariha 01/12/23 at 1000, Upon admission to sameday - please start iv if patient does not have iv access. Use 500ml NS for patients on dialysis. 1030 (New Bag - Provider: Paula Armstrong RN)1051 (Continued by Anesthesia - Provider: FREDERICK Courtney CRNA)1306 (Stopped - Provider: FREDERICK Courtney CRNA) lactated Ringer's infusion (CANCELED) 125 mL/hr, IntraVENous, Continuous, Starting on [place] 01/12/23 at 1315, Recovery (only) 1315 (New Bag - Provider: Bernard Lujan RN)1544 (Stopped - Provider: Shelby Vidal RN) ropivacaine (Naropin) 0.2 % elastomeric infusion 500 mL 500 mL, Infiltration, at 4 mL/hr, Continuous, Starting on Fariha 01/12/23 at 1315, Laterality: Right bolus-4ml. 30min lockout 1315 (New Bag - Provider: Bernard Lujan RN) sodium chloride 0.9 % infusion 125 mL/hr, IntraVENous, Continuous, Starting on Fariha 01/12/23 at 1530, Phase II/On Unit 1608 (New Bag - Provider: Shelby Vidal RN) PRN Medication Order 01/11/2023 01/12/2023 01/13/2023 ALPRAZolam (Xanax) disintegrating tablet 0.25 mg (COMPLETED) 0.25 mg, Oral, PRN, anxiety, Starting on Fariha 01/12/23 at 0945, For 1 dose, Preprocedure, Using dry hands, place tablet on top of tongue and allow to disintegrate. Administration with water is not necessary. 1030 (Given - Provider: Paula Armstrong, SHA) bisacodyl (Dulcolax) EC tablet 5 mg 5 mg, Oral, Daily PRN, constipation, Starting on Fariha 01/12/23 at 1529, Phase II/On Unit, 1st line for treatment of constipation - give scheduled if no bowel movement in past 24 hours. Do not crush, chew, or split. cefuroxime (Ceftin) tablet (CANCELED) As needed, Starting on Fariha 01/12/23 at 1059, Intraprocedure 1059 (Given - Provider: Almas Laureano MD - Comment: 1.5g poweder mixed with cement) diphenhydrAMINE (BENADryl) injection 25 mg(Linked Group 1) 25 mg, IntraVENous, Every 6 hours PRN, itching, Starting on Fariha 01/12/23 at 1529, Phase II/On Unit, Administer if oral route cannot be used. diphenhydrAMINE (BENADryl) tablet/capsule 25 mg(Linked Group 1) 25 mg, Oral, Every 6 hours PRN, itching, Starting on Fariha 01/12/23 at 1529, Phase II/On Unit HYDROmorphone (Dilaudid) injection 0.25 mg(Linked Group 2) 0.25 mg, IntraVENous, Every 3 hours PRN, moderate pain (4-6), Starting on Fariha 01/12/23 at 1529, Phase II/On Unit, If oral and IV narcotics ordered, use oral first and only use IV if oral is ineffective or cannot take oral. Do Not give oral and IV within 1 hour of each other unless specifically ordered. 1734 (See Alternative - Provider: Shelby Vidal RN)2158 (See Alternative - Provider: Andre Mijares RN) HYDROmorphone (Dilaudid) injection 0.5 mg(Linked Group 2) 0.5 mg, IntraVENous, Every 3 hours PRN, severe pain (7-10), Starting on Fariha 01/12/23 at 1529, Phase II/On Unit, If oral and IV narcotics ordered, use oral first and only use IV if oral is ineffective or cannot take oral. Do Not give oral and IV within 1 hour of each other unless specifically ordered. 1734 (Given - Provider: Shelby Vidal RN)2159 (Given - Provider: Andre Mijares RN) HYDROmorphone (Dilaudid) injection 0.5 mg (CANCELED) 0.5 mg, IntraVENous, Every 5 min PRN, severe pain (7-10), Starting on Fariha 01/12/23 at 1308, For 4 doses, Recovery (only), Phase I and Phase II- Initial therapy for severe pain (7-10). Restricted to a 90 minute time frame starting when the patient can verbally state their pain score. If after 2 doses the pain score does not decrease by more than one point, then call the provider. If oral meds are utilized, do not return to initial therapy medications. 1321 (Given - Provider: Chaparro Lujan RN)1353 (Given - Provider: Chaparro Lujan RN) ondansetron (Zofran) injection 4 mg(Linked Group 3) 4 mg, IntraVENous, Every 6 hours PRN, nausea, vomiting, Starting on Fariha 01/12/23 at 1529, Phase II/On Unit, 1st Line. Give IV if patient is unable to take orally. If inadequate response within 60 minutes, proceed to next-line agent or contact provider if no further options ordered. 0828 (See Alternativ e - Provider: Marjorie Carrillo RN) ondansetron ODT (Zofran-ODT) disintegrating tablet 4 mg(Linked Group 3) 4 mg, Oral, Every 8 hours PRN, nausea, vomiting, Starting on Fariha 01/12/23 at 1529, Phase II/On Unit, 1st Line. If inadequate response within 60 minutes, proceed to next-line agent or contact provider if no further options ordered. Patient should allow tablet to dissolve on tongue. Do not remove from blister pack until just before administering. 0828 (Given - Provid er: Marjorie Carrillo RN) oxyCODONE (Roxicodone) immediate release tablet 10 mg(Linked Group 4) 10 mg, Oral, Every 4 hours PRN, severe pain (7-10), Starting on Fariha 01/12/23 at 1529, Phase II/On Unit 1834 (Given - Provider: Shelby Vidal RN) 0014 (Given - Provider: Andre Mijares RN)0558 (Given - Provider: Andre Mijares RN)1258 (See Alternative - Provider: Jamaal Fenton LPN) oxyCODONE (Roxicodone) immediate release tablet 5 mg(Linked Group 4) 5 mg, Oral, Every 4 hours PRN, moderate pain (4-6), Starting on Fariha 01/12/23 at 1529, Phase II/On Unit 1834 (See Alternative - Provider: Shelby Vidal RN) 0014 (See Alternative - Provider: Andre Mijares RN)0558 (See Alternative - Provider: Andre Mijares RN)1258 (Given - Provider: Jamaal Fenton LPN) oxyCODONE (Roxicodone) immediate release tablet 5 mg (COMPLETED) 5 mg, Oral, PRN, moderate pain (4-6), Starting on Fariha 01/12/23 at 1308, For 1 dose, Recovery (only), PHASE II 1442 (Given - Provider: Chaparro Lujan RN) sodium chloride 0.9 % infusion 5-250 mL/hr, IntraVENous, PRN, if patient receiving piggyback infusions and maintenance fluids are not ordered OR KVO fluids to protect IV site / prevent frequent line interruptions/ long duration, Starting on Fariha 01/12/23 at 1529, Phase II/On Unit, For piggyback infusion, administer at same rate as piggyback for a total of 25 mL. Enter 25 mL into dose field and piggyback rate into rate field of order. If piggyback is infusing at a rate less than 100 mL/hr, enter 25 mL into dose field and 100 mL/hr into rate field of order. For KVO fluids, enter rate of 20 mL/hr or less into rate field of order. sodium chloride 0.9 % irrigation solution (CANCELED) As needed, Starting on Fariha 01/12/23 at 1100, Intraprocedure 1059 (Given - Provider: Almas Laureano MD)1100 (Given - Provider: Almas Laureano MD - Comment: tinted with betadine) sodium chloride 0.9% (NS) flush 10 mL 10 mL, IntraVENous, PRN, line care, Starting on Fariha 01/12/23 at 1529, Phase II/On Unit, After every IV line use sterile water irrigation solution (CANCELED) As needed, Starting on Fariha 01/12/23 at 1100, Intraprocedure 1100 (Given - Provider: Almas Laureano MD - Comment: on tech table) Linked Groups Order Group 1: diphenhydrAMINE (BENADryl) tablet/capsule 25 mgJump to med 25 mg, Oral, Every 6 hours PRN, itching, Starting on Fariha 01/12/23 at 1529, Phase II/On Unit Or diphenhydrAMINE (BENADryl) injection 25 mgJump to med 25 mg, IntraVENous, Every 6 hours PRN, itching, Starting on Fariha 01/12/23 at 1529, Phase II/On Unit
Administer if oral route cannot be used.
Group 2: HYDROmorphone (Dilaudid) injection 0.25 mgJump to med 0.25 mg, IntraVENous, Every 3 hours PRN, moderate pain (4-6), Starting on Fariha 01/12/23 at 1529, Phase II/On Unit
If oral and IV narcotics ordered, use oral first and only use IV if oral is ineffective or cannot take oral. Do Not give oral and IV within 1 hour of each other unless specifically ordered.
Or HYDROmorphone (Dilaudid) injection 0.5 mgJump to med 0.5 mg, IntraVENous, Every 3 hours PRN, severe pain (7-10), Starting on Fariha 01/12/23 at 1529, Phase II/On Unit
If oral and IV narcotics ordered, use oral first and only use IV if oral is ineffective or cannot take oral. Do Not give oral and IV within 1 hour of each other unless specifically ordered.
Group 3: ondansetron ODT (Zofran-ODT) disintegrating tablet 4 mgJump to med 4 mg, Oral, Every 8 hours PRN, nausea, vomiting, Starting on Fariha 01/12/23 at 1529, Phase II/On Unit
1st Line. If inadequate response within 60 minutes, proceed to next-line agent or contact provider if no further options ordered. Patient should allow tablet to dissolve on tongue. Do not remove from blister pack until just before administering.
Or ondansetron (Zofran) injection 4 mgJump to med 4 mg, IntraVENous, Every 6 hours PRN, nausea, vomiting, Starting on Fariha 01/12/23 at 1529, Phase II/On Unit
1st Line. Give IV if patient is unable to take orally. If inadequate response within 60 minutes, proceed to next-line agent or contact provider if no further options ordered.
Group 4: oxyCODONE (Roxicodone) immediate release tablet 5 mgJump to med 5 mg, Oral, Every 4 hours PRN, moderate pain (4-6), Starting on Fariha 01/12/23 at 1529, Phase II/On Unit Or oxyCODONE (Roxicodone) immediate release tablet 10 mgJump to med 10 mg, Oral, Every 4 hours PRN, severe pain (7-10), Starting on Fariha 01/12/23 at 1529, Phase II/On Unit Scheduled Medication Order 09/25/2024 09/26/2024 09/27/2024 amoxicillin-clavulanat e (Augmentin) 875-125 MG per tablet 1 tablet 1 tablet (875 mg), Oral, Every 12 hours scheduled (2 times per day), First dose on Mon09/26/24 at 2100, Suspected Indication (Select all that apply): Pneumonia (CAP) 2031 (Given - Provider: Jose Roberto Samaniego RN) 0935 (Given - Provider: Galina Nieves RN) busPIRone (Buspar) tablet 10 mg 10 mg, Oral, 3 times daily, First dose on Mon09/24/24 at 1400 0858 (Given - Provider: Galina Nieves RN)1401 (Given - Provider: Galina Nieves RN)2124 (Given - Provider: Anders Shahid RN) 0900 (Given - Provider: Galina Nieves RN)1337 (Given - Provider: Galina Nieves RN)2031 (Given - Provider: Jose Roberto Samaniego RN) 0930 (Given - Provider: Galina Nieves RN)1329 (Given - Provider: Galina Nieves RN) carBAMazepine (TEGretol) tablet 200 mg 200 mg, Oral, 3 times daily, First dose on Mon09/23/24 at 1700 0952 (Given - Provider: Galina Fear, RN)1805 (Given - Provider: Galina Nieves RN)2124 (Given - Provider: Anders Shahid RN) 0838 (Given - Provider: Galina Nieves RN)1316 (Given - Provider: Galina Nieves, RN)203 (Given - Provider: Jose Roberto Samaniego RN) 0931 (Given - Provider: Galina Nieves, RN)1330 (Given - Provider: Galina Nieves, RN) cefTRIAXone (Rocephin) 1,000 mg in sodium chloride 0.9 % 50 mL IVPB Mini-Bag Plus (CANCELED) 1,000 mg, IntraVENous, at 100 mL/hr, Administer over 30 Minutes, Every 24 hours, First dose on Mon09/24/24 at 1200, Mini-Bag Plus bag, Suspected Indication (Select all that apply): Pneumonia (CAP) 1205 (New Bag - Provider: Galina Nieves, RN)1235 (Stopped - Provider: Galina Nieves RN) 1229 (New Bag - Provider: Galina Nieves RN)1259 (Stopped - Provider: Galina Nieves RN) clopidogrel (Plavix) tablet 75 mg 75 mg, Oral, Daily, First dose on Mon09/23/24 at 1700 0858 (Given - Provider: Galina Nieves RN) 0837 (Given - Provider: Galina Nieves RN) 0930 (Given - Provider: Galina Nieves RN) enoxaparin (Lovenox) syringe 40 mg 40 mg, SubCUTAneous, Every 24 hours, First dose on Mon09/23/24 at 1600, Indication of Use: Prophylaxis-DVT/PE 1539 (Given - Provider: Galina Neives RN) 1500 (Given - Provider: Galina Nieves RN) 1600 (Canceled Entry - Provider: Automatic Discharge Provider - Comment: Automatically canceled at discontinue of medication order) fludrocortisone (Florinef) tablet 0.1 mg 0.1 mg, Oral, Daily, First dose on Mon09/23/24 at 1700 0952 (Given - Provider: Galina Nieves, RN) 0839 (Given - Provider: Galina Nieves, RN) 0932 (Given - Provider: Galina Nieves, RN) folic acid (Folvite) tablet 1 mg 1 mg, Oral, Daily, First dose on Mon09/23/24 at 1700 0858 (Given - Provider: Galina Nieves RN) 0837 (Given - Provider: Galina Nieves RN) 0930 (Given - Provider: Galina Nieves RN) guaiFENesin (Mucinex) 12 hr tablet 600 mg 600 mg, Oral, 2 times daily, First dose on Mon09/23/24 at 2100, Administer with plenty of fluids to ensure proper action. Do not crush, chew, or split. 0858 (Given - Provider: Galina Nieves RN)2124 (Given - Provider: Anders Shahid RN) 0837 (Given - Provider: Galina Nieves RN)203 (Given - Provider: Jose Roberto Samaniego RN) 0930 (Given - Provider: Galina Nieves RN) ipratropium-albuterol (Duo-Neb) 0.5-2.5 mg/3 mL nebulizer solution 3 mL 3 mL, Nebulization, 3 times daily, First dose on Mon09/23/24 at 2000 0757 (Given - Provider: Paula Tomlin)1317 (Given - Provider: Paula Tomlin)2037 (Given - Provider: aYa Matthews RCP) 1003 (Given - Provider: Salome Hodge, RODRIGO)1320 (Given - Provider: Salome Hodge RRT) 0000 (Given - Provider: Miguel Moon RRT)0920 (Given - Provider: Paula Tomlin)1315 (Given - Provider: Paula Tomlin) levothyroxine (Synthroid, Levoxyl) tablet 75 mcg 75 mcg, Oral, Daily before breakfast, First dose on Mon09/24/24 at 0600 0952 (Given - Provider: Galina Nieves RN) 0502 (Given - Provider: Anders Shahid RN) 0554 (Given - Provider: Jose Roberto Samaniego RN) magnesium sulfate IVPB premix 2,000 mg (COMPLETED) 2,000 mg, IntraVENous, at 25 mL/hr, Administer over 2 Hours, Once, On Mon09/25/24 at 0930, For 1 dose, Recommended infusion rate not to exceed 1,000 mg (milligrams) per hour. 1002 (New Bag - Provider: Galina Nieves RN)1034 (Rate/Dose Verify - Provider: Galina Nieves RN)1202 (Stopped - Provider: Galina Nieves RN) pantoprazole (ProtoNix) EC tablet 40 mg 40 mg, Oral, 2 times daily, First dose on Mon09/23/24 at 1700, Do not crush, chew, or split. 0859 (Given - Provider: Galina Nieves RN - Comment: given with morning meds)1539 (Given - Provider: Galina Nieves RN) 0502 (Given - Provider: Anders Shahid RN)1459 (Given - Provider: Galina Nieves RN) 0553 (Given - Provider: Jose Roberto Samaniego RN)1500 (Canceled Entry - Provider: Automatic Discharge Provider - Comment: Automatically canceled at discontinue of medication order) potassium chloride CR (Klor-Con M10) ER tablet 40 mEq (COMPLETED) 40 mEq, Oral, Once, On Mon09/25/24 at 1300, For 1 dose, Best given with food and plenty of water to minimize gastric irritation. Do not crush or chew. 1313 (Given - Provider: Galina Nieves RN) pravastatin (Pravachol) tablet 40 mg 40 mg, Oral, Nightly, First dose on Mon09/23/24 at 2100 2123 (Given - Provider: Anders Shahid RN) 2032 (Given - Provider: Jose Roberto Samaniego RN) pregabalin (Lyrica) capsule 150 mg 150 mg, Oral, 2 times daily, First dose on Mon09/24/24 at 2100 0858 (Given - Provider: Galina Nieves RN)2123 (Given - Provider: Anders Shahid, RN) 0837 (Given - Provider: Galina Nieves RN)2032 (Given - Provider: Jose Roberto Samaniego RN) 0930 (Given - Provider: Galina Nieves, RN) risperiDONE (RisperDAL) tablet 0.5 mg 0.5 mg, Oral, 2 times daily, First dose on Mon09/24/24 at 2100, Indications: bipolar one disorder 0859 (Given - Provider: Galina Nieves RN)2123 (Given - Provider: Anders Shahdi, SHA) 0839 (Given - Provider: Galina Nieves RN)2032 (Given - Provider: Jose Roberto Samaniego, RN) 0931 (Given - Provider: Galina Nieves RN) senna-docusate sodium (Senokot-S) 8.6-50 MG tablet 2 tablet 2 tablet, Oral, Daily, First dose on Mon09/23/24 at 1600 0858 (Given - Provider: Galina Nieves RN) 0900 (Not Given - Provider: Galina Nieves RN - Reason: Other - Comment: patient having loose BM) 0900 (Not Given - Provider: Galina Nieves RN - Reason: Other - Comment: patient having loose BM) PRN Medication Order 09/25/2024 09/26/2024 09/27/2024 acetaminophen (Tylenol) suppository 650 mg(Linked Group 1) 650 mg, Rectal, Every 6 hours PRN, fever, For temp greater than 100.4 F (38 C), Starting on Mon09/23/24 at 1456, Administer if oral route cannot be used. Maximum dose of acetaminophen is 4000 mg from all sources in 24 hours. 1337 (See Alternative - Provider: Galian Nieves RN)2159 (See Alternative - Provider: Jose Roberto Samaniego RN) 0553 (See Alternative - Provider: Jose Roberto Samaniego RN) acetaminophen (Tylenol) tablet 650 mg(Linked Group 1) 650 mg, Oral, Every 6 hours PRN, mild pain (1-3), fever, For temp greater than 100.4 F (38 C), Starting on Mon09/23/24 at 1456, Maximum dose of acetaminophen is 4000 mg from all sources in 24 hours. 1337 (Given - Provider: Galina Nieves RN)2159 (Given - Provider: Jose Roberto Samaniego RN) 0553 (Given - Provider: Jose Roberto Samaniego RN) loperamide (Imodium) capsule 2 mg 2 mg, Oral, 4 times daily PRN, diarrhea, Starting on Fariha 09/26/24 at 0750, After each loose stool 0922 (Given - Provider: Galina Nieves RN)1337 (Given - Provider: Galina Nieves RN)2154 (Given - Provider: Jose Roberto Samaniego RN) 1258 (Given - Provider: Galina Nieves RN) ondansetron (Zofran) injection 4 mg(Linked Group 2) 4 mg, IntraVENous, Every 6 hours PRN, nausea, vomiting, Starting on Mon09/23/24 at 1456, 1st Line. Give IV if patient is unable to take orally. If inadequate response within 60 minutes, proceed to next-line agent or contact provider if no further options ordered. 0441 (Given - Provid er: Keron Lucio RN)1013 (See Alternative - Provider: Galina Nieves RN)1033 (Given - Provider: Galina Nieves RN) ondansetron ODT (Zofran-ODT) disintegrating tablet 4 mg(Linked Group 2) 4 mg, Oral, Every 8 hours PRN, nausea, vomiting, Starting on Mon09/23/24 at 1456, 1st Line. If inadequate response within 60 minutes, proceed to next-line agent or contact provider if no further options ordered. Patient should allow tablet to dissolve on tongue. Do not remove from blister pack until just before administering. 0441 (See Alternativ e - Provider: Keron Lucio RN)1013 (Given - Provider: Galina Nieves RN)1033 (See Alternative - Provider: Galina Nieves RN) polyethylene glycol (PEG) 3350 (Miralax) packet 17 g 17 g, Oral, Daily PRN, constipation, Starting on Mon09/23/24 at 1456, 1st line for treatment of constipation - give scheduled if no bowel movement in past 24 hours. stomahesive in petrolatum (ET Mix) Topical, PRN, dry skin, Starting on Mon09/26/24 at 0913 1231 (Given - Provider: Galina Nieves RN) Linked Groups Order Group 1: acetaminophen (Tylenol) tablet 650 mgJump to med 650 mg, Oral, Every 6 hours PRN, mild pain (1-3), fever, For temp greater than 100.4 F (38 C), Starting on Mon09/23/24 at 1456, Maximum dose of acetaminophen is 4000 mg from all sources in 24 hours. Or acetaminophen (Tylenol) suppository 650 mgJump to med 650 mg, Rectal, Every 6 hours PRN, fever, For temp greater than 100.4 F (38 C), Starting on Mon09/23/24 at 1456, Administer if oral route cannot be used. Maximum dose of acetaminophen is 4000 mg from all sources in 24 hours. Group 2: ondansetron ODT (Zofran-ODT) disintegrating tablet 4 mgJump to med 4 mg, Oral, Every 8 hours PRN, nausea, vomiting, Starting on Mon09/23/24 at 1456, 1st Line. If inadequate response within 60 minutes, proceed to next-line agent or contact provider if no further options ordered. Patient should allow tablet to dissolve on tongue. Do not remove from blister pack until just before administering. Or ondansetron (Zofran) injection 4 mgJump to med 4 mg, IntraVENous, Every 6 hours PRN, nausea, vomiting, Starting on Mon09/23/24 at 1456, 1st Line. Give IV if patient is unable to take orally. If inadequate response within 60 minutes, proceed to next-line agent or contact provider if no further options ordered. Care Teams (unrecognized sec tion and content) Team Status: Inactive Member Role Status Dates Kianna SALVADOR Attending Provider Active Team Status: Active Member Role Status Dates Kianna SALVADOR Attending Provider Active Team Status: Inactive Member Role Status Dates Kianna SALVADOR Attending Provider, Referring Provi marissa Active Team Status: Active Member Role Status Dates Kianna Izquierdo Attending Provider Active Team Status: Inactive Member Role Status Dates Kianna Izquierdo Attending Provider Active Slagger Relationship Specialty Start Date End Date Kianna Izquierdo MD PCP - General Internal Medicine 08/25/20 Slagger Relationship Specialty Start Date End Date Kianna Izquierdo MD PCP - General Internal Medicine 08/25/20 Slagger Relationship Specialty Start Date End Date Kianna Izquierdo MD PCP - General Internal Medicine 08/25/20 Slagger Relationship Specialty Start Date End Date Kianna Izquierdo MD PCP - General Internal Medicine 08/25/20 Slagger Relationship Specialty Start Date End Date Kianna Izquierdo MD PCP - General Internal Medicine 08/25/20 Slagger Relationship Specialty Start Date End Date Kianna Izquierdo MD [address] [facility] [address] [place] [address] PCP - General Internal Medicine 05/30/22 Slagger Relationship Specialty Start Date End Date Kianna Izquierdo [address] [place] [phone] PCP - General 05/30/22 Kianna Izquierdo [address] [place] [address] 05/30/22 Slagger Relationship Specialty Start Date End Date Kianna Izquierdo [address] [place] [address] PCP - General 05/30/22 Kianna Izquierdo [address] [place] [phone] 05/30/22 Slagger Relationship Specialty Start Date End Date Kianna Izquierdo [address] [place] [phone] PCP - General 05/30/22 Kianna Izquierdo [address] [place] [phone] 05/30/22 Aaron Negro RN Nurse Navigator Orthopedic Surgery 12/22/2204/14/23 Slagger Relationship Specialty Start Date End Date Kianna Izquierdo [address] [place] [phone] PCP - General 05/30/22 Kianna Izquierdo [address] [place] [phone] 05/30/22 Aaron Negro RN Nurse Navigator Orthopedic Surgery 12/22/2204/14/23 Slagger Relationship Specialty Start Date End Date Kianna Izquierdo [address] [place] [phone] PCP - General 05/30/22 Kianna Izquierdo [address] [place] [phone] 05/30/22 Aaron Negro RN Nurse Navigator Orthopedic Surgery 12/22/2204/14/23 Almas Laureano MD [address] [facility] [address] [place], [place] [address] Orthopedic Surgery 01/13/23 04/14/23 Slagger Relationship Specialty Start Date End Date Kianna Izquierdo [address] [place] [address] PCP - General 05/30/22 Kianna Izquierdo [address] [place] [phone] 05/30/22 Aaron Negro RN Nurse Navigator Orthopedic Surgery 12/22/2204/14/23 Almas Laureano MD [address] [facility] [address] [place] [address] Orthopedic Surgery 01/13/23 04/14/23 Slagger Relationship Specialty Start Date End Date Kianna Izquierdo [address] [place] [phone] PCP - General 05/30/22 Kianna Izquierdo [address] [place] [phone] 05/30/22 Aaron Negro RN Nurse Navigator Orthopedic Surgery 12/22/2204/14/23 Almas Laureano MD [address] [facility] [address] [place] [address] Orthopedic Surgery 01/13/23 04/14/23 Slagger Relationship Specialty Start Date End Date Kianna Izquierdo [address] [place] [phone] PCP - General 05/30/22 Kianna Izquierdo [address] [place] [address] 05/30/22 Aaron Negro RN Nurse Navigator Orthopedic Surgery 12/22/2204/14/23 Almas Laureano MD [address] [facility] [address] [place] [address] Orthopedic Surgery 01/13/23 04/14/23 Slagger Relationship Specialty Start Date End Date Kianna Izquierdo [address] [place] [address] PCP - General 05/30/22 Kianna Izquierdo [address] [place] [address] 05/30/22 Aaron Negro RN Nurse Navigator Orthopedic Surgery 12/22/2204/14/23 Almas Laureano MD [address] [facility] [address] [place] [address] Orthopedic Surgery 6/2/23 9/1/23 Slagger Relationship Specialty Start Date End Date Kianna Izquierdo [address] [place] [phone] PCP - General 05/30/22 Kianna Izquierdo [address] [place] [phone] 05/30/22 Slagger Relationship Specialty Start Date End Date Kianna Izquierdo [address] [place] [address] PCP - General 05/30/22 Kianna Izquierdo [address] [place] [address] 05/30/22 Slagger Relationship Specialty Start Date End Date Kianna Izquierdo [address] [place] [address] PCP - General 05/30/22 Kianna Izquierdo [address] [place] [phone] 05/30/22 Slagger Relationship Specialty Start Date End Date Kianna Izquierdo [address] [place] [phone] PCP - General 05/30/22 Kianna Izquierdo [address] [place] [phone] 05/30/22 Slagger Relationship Specialty Start Date End Date Kianna Izquierdo [address] [place] [phone] PCP - General 05/30/22 Kianna Izquierdo [address] [place] [phone] 05/30/22 Slagger Relationship Specialty Start Date End Date Kianna Izquierdo [facility] [place] [phone] PCP - General 05/30/22 Kianna Izquierdo [address] [place] [address] Rd [address] [place] [phone] 05/30/22 Slagger Relationship Specialty Start Date End Date Kianna Izquierdo [address] [place] [phone] PCP - General 05/30/22 Kianna Izquierdo [address] [place] [phone] 05/30/22 Slagger Relationship Specialty Start Date End Date Ria Longoria MD [address] [place] [phone] PCP - General Hospitalist 09/23/24 Team Status: Inactive Member Role Status Dates Kianna SALVADOR Attending Provider Active Sta rt: July 08, 2024 End: July 08, 2024 Team Status: Active Member Role Status Dates Kianna SALVADOR Attending Provider Active Sta rt: July 29, 2024 Team Status: Inactive Member Role Status Dates Kianna SALVADOR Attending Provider Active Sta rt: September 30, 2024 End: September 30, 2024 Slagger Relationship Specialty Start Date End Date Ria Longoria MD [address] [place] [phone] PCP - General Hospitalist 09/23/24 Kianna Izquierdo [address] [place] [phone] 09/23/24 Kianna Izquierdo [address] [place] [address] 05/30/22 Slagger Relationship Specialty Start Date End Date Ria Longoria MD [address] [place] [phone] PCP - General Hospitalist 09/23/24 Kianna Izquierdo [address] [place] [phone] 09/23/24 Kianna Izquierdo [address] [place] [phone] 05/30/22 Reason for Visit (unrecogniz ed section and content) Reason Comments Fall Pt found down this a m in facility brought in by EMS.. Team Specialty Diagnoses / Procedures Referred By Contac t Referred To Contact Diagnoses Unilateral primary osteoarthritis, right knee Unilateral primary osteoarthritis, right knee [M17.11] Procedures NC ARTHRP KNE CONDYLE&PLATU MEDIAL&LAT COMPARTMENTS Right Total Knee Arthroplasty Almas Laureano MD [address] [facility] [address] [place] [address] [facility] [address] Or [address] [place] [address] Referral ID Status Reason Start Date Expiration Date Visits Re quested Visits Authorized [id number] 1 Reason Onset Date Comments Advice Only 01/16/2023 Reason Comments Post-op IPO: Rt TKA 3 Reason Comments Follow-up Rt TKA . Reason Comments Follow-up FU right hip Specialty Diagnoses / Procedures Referred By Contac t Referred To Contact Radiology Diagnoses Right hip pain Procedures MR hip right wo Almas Laureano MD [address] [facility] [address] [place] [address] Referral ID Status Reason Start Date Expiration Date V isits Requested Visits Authorized [id number] Authorized 09/13/2023 09/12/2024 1 1 Reason Onset Date Comments OTHER 07/12/2022 Reason Comments Fall Fall and hit head on floor. c/o R hip pain. Baseline Aox3, per EMS Aox1-2. Takes plavix and has been feeling ill lately. Specialty Diagnoses / Procedures Referred By Contac t Referred To Contact Diagnoses Pneumonia due to organism Pneumonia due to infectious agent Procedures j18.9 Lashon Sullivan MD [address] [place] [address] Phone: tel: fax: [facility] [address] [place] [phone] Phone: tel: Referral ID Status Reason Start Date Expiration Date Visits Re quested Visits Authorized [id number] 1 1 Reason Comments Follow-up Low Back Pain FOR RECORDS PERTAINING TO PATIENTS WHO ARE OR HAVE BEEN ENROLLED IN A CHEMICAL DEPENDENCY/SUBSTANCEABUSE PROGRAM, SOME INFORMATION MAY BE OMITTED. This clinical summary was aggregated from multiple sources. Caution should be exercised in using it in the provision of clinical care. This summary normalizes information from multiple sources, and as a consequence, information in this document may materially change the coding, format and clinical context of patient data. In addition, data may be omitted in some cases. CLINICAL DECISIONS SHOULD BE BASED ON THE PRIMARY CLINICAL RECORDS. [employer] provides no warranty or guarantee of the accuracy or completeness of information in this document.
[2025-06-25 08:11] LABS: Hematocrit 34.2 % (37-47); Hemoglobin 11.6 g/dL (12.0-15.0); Mean Corp Hgb Conc 33.9 g/dL (32-36); Mean Corpuscular Volume 92.2 fL (81-99); Mean Platelet Vol. 10.3 fl (6.2-12.0); Platelet Count 200 K/mm3 (150-450); RBC Distribution Width CV 13.1 % (11.6-14.6); RBC Distribution Width SD 44.5 fl (35.1-43.9); Red Blood Count 3.71 M/mm3 (4.2-5.4); White Blood Count 5.0 K/mm3 (4.4-11.0)
[2025-06-25 08:25] LABS: Carbamazepine (Tegretol) 7.6 ug/mL (4.0-12.0)
[2025-06-25 08:49] LABS: Anion Gap 8 (5-15); BUN 9 mg/dL (4-19); BUN/Creat Ratio 12.7 RATIO (10-20); Calcium,Total 9.1 mg/dL (7.6-11.0); Carbon Dioxide 29.7 mmol/L (21.0-32.0); Chloride 104 mmol/L (98-108); Cholesterol 141 mg/dL (<=200); Glucose 85 mg/dL (70-99); Low Density Lipoprotein Calc. 81 mg/dL; Potassium 3.3 mmol/L (3.3-5.1); Triglycerides 82 mg/dL; Very Low Density Lipoprotein 16 mg/dL (5-40); cholesterol:hdl ratio screen 3.18
== END ==
LOC: OLS.SANC 05:00
PROVIDERS: Visit Provider Internal Medicine
DX: I82.409 Acute embolism and thrombosis of unspecified deep veins of unspecified lower extremity (principal); E78.5 Hyperlipidemia, unspecified; Z79.899 Other long term (current) drug therapy
CPT/HCPCS: 36415; 80048; 80061; 80156; 84443; 85027

== ENCOUNTER → 2025-07-07 05:00 | Outpatient (REF) | payer MEDICARE, MEDICAID, SELFPAY ==
--- OUTSIDE RECORDS SUMMARY | 2025-07-07 04:07 | XMS RPT_ITS | CCD ---
Author Organization [facility] Care Team Providers Care Magazine Filler Name Role Phone Kianna Izquierdo Primary Care [...] Care Provider Cayla Madrigal Attending Unavailable Kianna Izqueirdo Referring Unavailable Kianna Izquierdo Primary Care Unavailable [...] Unavailable Ria Longoria MD Primary Care Provider RIA LONGORIA Primary Care Unavailable LASHON SULLIVAN Admitting Unavailable DENNIS DAVIES Attending Unavailable Kianna Miranda Attending Provider UnavailKianna Mcdonald Unavailable OPAL ESPINOZA Attending Unavailable LONGORIARIA OVIEDO Primary Care Unavailable OPAL ESPINOZA Attending Unavailable OPAL ESPINOZA Referring Unavailable RIA LONGORIA Primary Care Unavailable ALMAS LAUREANO Attending Unavailable ALMAS LAUREANO Referring Unavailable KIANNA IZQUIERDO Primary Care Unavailable Ramon SALVADOR, Kianna Attending Unavailable Ramon SALVADOR, Kianna Attending Unavailable Ramon SALVADOR, Kianna Attending Unavailable Amaury Hou Attending Unavail able Katsavictor m OLS, Kianna Attending Unavailable Katsavictor m OLS, Kianna Attending Unavailable Ramon SALVADOR, Kianna Attending [...] 21 Nausea And Vomiting [facility] Work Phone: (7 sources) Sulfonamides (Antibiotic) Propensity to adverse reactions to drug 10-06-19 21 Nausea And Vomiting [facility] Work Phone: [phone] (20 sources) SUMAtriptan Drug Allergy 10-06-19 21 Nausea And Vomiting [facility] Work Phone: (3 sources) Other Propensity to adverse reactions 10-06-19 [facility] Work Phone: (20 sources) Ibuprofen Drug Allergy 09-11-18 99 Nausea And Vomiting [facility] (20 sources) Sulfamethoxazole / Trimethoprim Drug Allergy 12-01-19 21 Other (See Comments) [facility] (1 source) salicylamide Drug Allergy 05-30-20 22 Nausea And Vomiting [facility] Work Phone: (12 sources) salicylamide Drug Allergy 07-23-20 23 [facility] (5 sources) Sulfonamides (Antibiotic) Propensity to adverse reactions 09-23-19 25 [email or web address] NEGATED: Highlighted row has been ruled out! (5 sources) Other Propensity to adverse reactions 10-06-19 [facility] Work Phone: Medications Current Medications Medication Drug Class(es) Dates [...] mouth once cholecalciferol (Vitamin D-3) 1.25 MG (10129 UT) capsule Indications: Vitamin D Deficiency Take by mouth. Active take 1 tablet by mouth every we k cholecalciferol (Vitamin D3) 1.25 MG (60096 UT) tablet Take 50,000 Units by mouth 1 (one) time per week. Active cholecalciferol (Vitamin D-3) 1.25 MG (62239 UT) capsule Indications: Vitamin D Deficiency Take by mouth. 0 Active cholecalciferol (Vitamin D-3) 1.25 MG (14178 UT) capsule Take by mouth. 0 Active Cholecalciferol (VITAMIN D3) 1.25 MG (97912 UT) CAPS Take by mouth once a [...] every week ergocalciferol (Vitamin D-2) 1.25 MG (10788 UT) capsule Take 50,000 Units by mouth 1 (one) time per week. 0 06/10/2022 Active Start: 06-10-2022 take 1 capsule by mo uth every week Ergocalciferol (VITAMIN D) 38847 units CAPS Take 50,000 Units by mouth once a week 5 capsule 0 06/10/2022 Active Start: 06-03-2022 vitamin D (ERG OCALCIFEROL) capsule 50,000 Units Start: 01-21-2022 take 97071 [IU] by m outh every week 50,000 [...] times daily, First dose on Mon01/12/23 at 2100 Start: 05-30-2022 take 150 mg [...] as needed (anxiety). 0 07/25/2023 Active sennosides, group home 8.6 mg oral tablet (1 source) Start: [...] by jayla every eight hours as needed for pain [...] (2 sources) Macrolide Antimicrobial Start: 09-24-2024 End: 09-24-2024 take 1 capsule by mouth once daily 500 mg, Oral, Daily, First dose on Mon09/24/24 at 0900, Suspected Indication (Select all that apply): Pneumonia (CAP) azithromycin (Zithromax) 500 mg in sodium chloride 0.9 % 250 mL IVPB (ADD-Julian) (2 sources) Start: 09-23-2024 End: 09-23-2024 500 mg, IntraVENous, Administer over 60 Minutes, Once, On Mon09/23/24 at 1135, For 1 dose, ADD-Julian bag, Suspected Indication (Select all that apply): [...] Oral, 2 TIMES DAILY, First dose on 05/30/22 at 1330, [...] 05/31/2022 Discontinued (ERROR) take 1 tablet by three times daily at mealtime carBAMazepine (TEGRETOL [...] on Mon06/01/22 at 1830, Last dose on Fariha 06/02/22 at 0230 Antimicrobial Indications: Surgical Prophylaxis Start: [...] 01-12-2023 End: 01-12-2023 dexAMETHasone (Decadron) inj ection tzlTMXHGilcsx-ljjdxjjowfo-pn inephrine (TAP) syringe (1 source) Start: 01-12-2023 End: 01-12-2023 embDJLCKcahgi-stpcjufmmdd-ln inephrine (TAP) syringe diphenhydrAMINE (BENADryl) tablet/capsule 25 [...] docusate sodium 50 mg / elizabeth osides, group home 8.6 mg oral tablet (2 sources) Start: [...] sources) Start: 01-12-2023 End: 01-12-2023 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 Take 10 mg by mouth [...] (Pressors) 1 MG/10ML injection polyethylene glycol 3350 31437 mg powder for oral solution (3 sources) [...] Start: 01-12-2023 End: 01-13-2023 5-250 mL/hr, IntraVENous, IA N, if patient receiving piggyback infusions and [...] 09-27-2024 Topical, PRN, dry skin, Starting on [facility] 09/26/24 at 0913 therapeutic multivitamin-mine rals (Theragran-M) tablet (2 sources) End: 09-27-2024 take 1 tablet by mouth once daily therapeutic multivitamin-litigation examiner als (Theragran-M) tablet Take 1 tablet by [...] 02-25-2025 02-25-2025 Episodic Other aftercare (4 sources) 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; Translations: [prison (current) use of 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/anti platelets] Onset: 01-18-2022 Episodic Other aftercare (2 sources) Encounter for palliative care; Translations: [Encounter for palliative care] Onset: 05-30-2022 Episodic Other aftercare (2 sources) 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; Translations: [prison (current) use of inhaled steroids] Onset: 05-30-2022 Episodic Other aftercare (2 sources) 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 (current) use of systemic steroids; Translations: [prison (current) use of systemic steroids] Onset: 05-30-2022 Episodic Other aftercare (2 sources) prison (current) use of opiate analgesic; Translations: [prison (current) use of opiate analgesic] Onset: 05-30-2022 Episodic Other aftercare (4 sources) Other alf (current) drug therapy; Translations: [Other 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 (current) drug therapy] Onset: 01-06-2022 Episodic Other [...] Coma; stupor; and brain damage (2 sources) Bernice coma scale score 13-15, at arrival to emergency department; Translations: [Kelley coma scale score 13-15, EMR] Onset: 01-06-2022 [...] aftercare (20 sources) Polypharmacy ; Translations: [Other alf (current) drug therapy] Onset: 01-05-2022 01-05-2022 Episodic [...] Test Name Value Interpretation Reference Range Facility Basic Metabolic Profile (BMP )on 06-25-2025 BUN/CRE 12.7 RATIO Normal - [facility] Comment on above: Order Comment: 104-2 Performed By: #### L 501.7900, [id number] #### [facility] [address] [place], [address] Calcium [Mass/Vol] 9.1 mg/dL Normal 7.6-11.0 [facility] Comment on above: Order Comment: 104-2 Performed By: #### L 501.7900, [id number] #### [facility] [address] [place], [address] Chloride [Moles/Vol] 104 mmol/L Normal 98-108 [facility] Comment on above: Order Comment: 104-2 Performed By: #### L 501.7900, [id number] #### [facility] [address] [place], [address] CO2 [Moles/Vol] 29.7 mmol/L Normal 21.0-32.0 [facility] Comment on above: Order Comment: 104-2 Performed By: #### L 501.7900, [id number] #### [facility] [address] [place], [address] Creatinine [Mass/Vol] 0.68 mg/dL Low 0.70-1.20 [facility] Comment on above: Order Comment: 104-2 Performed By: #### L 501.7900, [id number] #### [facility] [address] [place], [address] GAP 8 Normal 5-15 [facility] Comment on above: Order Comment: 104-2 Performed By: #### L 501.7900, [id number] #### [facility] [address] [place], [address] GFR/1.73 sq M.predicted among non-blacks MDRD (S/P/Bld) [Vol rate/Area] 91 mL/min/{1.73_m2} Normal >60 [facility] Comment on above: Order Comment: 104-2 Result Comment: mL/m in/1.73m2 CKD-EPI Creatinine Equation (2020) Performed By: #### L 501.7900, [id number] #### [facility] [address] [place], [address] Glucose [Mass/Vol] 85 mg/dL Normal 70-99 [facility] Comment on above: Order Comment: 104-2 Performed By: #### L 501.7900, [id number] #### [facility] [address] [place], [address] Potassium [Moles/Vol] 3.3 mmol/L Normal 3.3-5.1 [facility] Comment on above: Order Comment: 104-2 Performed By: #### L 501.7900, [id number] #### [facility] [address] [place], [address] Sodium [Moles/Vol] 142 mmol/L Normal 133-145 [facility] Comment on above: Order Comment: 104-2 Performed By: #### L 501.7900, [id number] #### [facility] [address] [place], [address] Urea nitrogen [Mass/Vol] 9 mg/dL Normal 4-19 [facility] Comment on above: Order Comment: 104-2 Performed By: #### L 501.7900, [id number] #### [facility] [address] [place], [address] CBC-Complete Blood Cnt No Di ffon 06-25-2025 Erythrocyte distribution width (RBC) [Ratio] 13.1 % Normal 11.6-14.6 [facility] Comment on above: Order Comment: 104-2 Performed By: #### L 501.7900, [id number] #### [facility] [address] [place], [address] Hematocrit (Bld) [Volume fraction] 34.2 % Low 37-47 [facility] Comment on above: Order Comment: 104-2 Performed By: #### L 501.7900, [id number] #### [facility] [address] [place], [address] Hemoglobin (Bld) [Mass/Vol] 11.6 g/dL Low 12.0-15.0 [facility] Comment on above: Order Comment: 104-2 Performed By: #### L 501.7900, [id number] #### [facility] [address] [place], [address] MCH (RBC) [Entitic mass] 31.3 pg Normal 27.0-32.0 [facility] Comment on above: Order Comment: 104-2 Performed By: #### L 501.7900, [id number] #### [facility] [address] [place], [address] MCHC (RBC) [Mass/Vol] 33.9 g/dL Normal 32-36 [facility] Comment on above: Order Comment: 104-2 Performed By: #### L 501.7900, [id number] #### [facility] [address] [place], [address] MCV (RBC) [Entitic vol] 92.2 fL Normal 81-99 [facility] Comment on above: Order Comment: 104-2 Performed By: #### L 501.7900, [id number] #### [facility] [address] [place], [address] Platelet mean volume (Bld) [Entitic vol] 10.3 fL Normal 6.2-12.0 [facility] Comment on above: Order Comment: 104-2 Performed By: #### L 501.7900, [id number] #### [facility] [address] [place], [address] Platelets (Bld) [#/Vol] 200 10*3/uL Normal 150-450 [facility] Comment on above: Order Comment: 104-2 Performed By: #### L 501.7900, [id number] #### [facility] [address] [place], [address] RBC (Bld) [#/Vol] 3.71 10*6/uL Low 4.2-5.4 [facility] Comment on above: Order Comment: 104-2 Performed By: #### L 501.7900, [id number] #### [facility] [address] [place], [address] RDW SD 44.5 fl High 35.1-43.9 [facility] Comment on above: Order Comment: 104-2 Performed By: #### L 501.7900, [id number] #### [facility] [address] [place], [address] WBC (Bld) [#/Vol] 5.0 10*3/uL Normal 4.4-11.0 [facility] Comment on above: Order Comment: 104-2 Performed By: #### L 501.7900, [id number] #### [facility] [address] [place], [address] Carbamazepine (Tegretol)on 1 08-25-2024 CARBAMAZEPINE 7.6 ug/mL Normal 4.0-12.0 [facility] Comment on above: Order Comment: 104-2 Performed By: #### L 501.7900, [id number] #### [facility] [address] [place], [address] Lipid Profileon 06-25-2025 CHOL:HDL 3.18 Normal [facility] Comment on above: Order Comment: 104-2 Performed By: #### L 501.7900, [id number] #### [facility] [address] [place], [address] Cholesterol [Mass/Vol] 141 mg/dL Normal <=200 [facility] Comment on above: Order Comment: 104-2 Result Comment: Chol esterol level, Desirable <200 mg/dL Borderline high cholesterol 200-239 mg/dL High cholesterol >=240 mg/dL Recommendations of the NCEP Adult Treatment Panel for the following risk-cutoff thresholds for the [place] population. Performed By: #### L 501.7900, [id number] #### [facility] [address] [place], [address] Cholesterol in HDL [Mass/Vol] 44 mg/dL Normal [facility] Comment on above: Order Comment: 104-2 Result Comment: Sandra onal Cholesterol Education Program (NCEP) guidelines: <40 mg/dL: Low HDL-cholesterol (major risk factor for CHD) >= 60 mg/dL: High HDL-cholesterol (negative risk factor for CHD) HDL-cholesterol is affected by a number of factors, e.g. smoking, exercise, hormones, sex and age. Performed By: #### L 501.7900, [id number] #### [facility] [address] [place], [address] Cholesterol in LDL [Mass/Vol] 81 mg/dL Normal [facility] Comment on above: Order Comment: 104-2 Result Comment: Bord zamhqz=775-537 mg/dL Higher Djct=478 mg/dL or greater Fishman Equation 2020 for LDL-C Performed By: #### L 501.7900, [id number] #### [facility] [address] [place], [address] Cholesterol in VLDL [Mass/Vol] 16 mg/dL Normal 5-40 [facility] Comment on above: Order Comment: 104-2 Performed By: #### L 501.7900, [id number] #### [facility] [address] [place], [address] Triglyceride [Mass/Vol] 82 mg/dL Normal [facility] Comment on above: Order Comment: 104-2 Result Comment: The drugs N-Acetylcysteine and Metamizole may falsely depress this assay. Normal range: <150 mg/dL Borderline High: 150-199 mg/dL High: 200-499 mg/dL Very High: >500 mg/dL Performed By: #### L 501.7900, [id number] #### [facility] [address] [place], [address] Thyroid Stim Hormone (TSH)on 06-25-2025 TSH 0.399 uIU/mL Normal 0.300-4.200 [facility] Comment on above: Order Comment: 104-2 Performed By: #### L 501.7900, [id number] #### [facility] [address] [place], [address] Carbamazepine (Tegretol)on 1 CARBAMAZEPINE 6.1 ug/mL Normal 4.0-12.0 [facility] Comment on above: Order Comment: 104-2 Performed By: #### L 501.7900, [id number] #### [facility] [address] [place], [address] Thyroid Stim Hormone (TSH)on 05-14-2025 TSH 6.900 uIU/mL High 0.300-4.200 [facility] Comment on above: Order Comment: 104-2 Performed By: #### L 501.7900, [id number] #### [facility] [address] [place], [address] Carbamazepine (Tegretol)on 0 05-09-2025 CARBAMAZEPINE 5.1 ug/mL Normal 4.0-12.0 [facility] Comment on above: Order Comment: 104-2 Performed By: #### L 501.9520, L501.7900 #### [facility] [address] [place], [address] Thyroid Stim Hormone (TSH)on 05-09-2025 TSH 4.720 uIU/mL High 0.300-4.200 [facility] Comment on above: Order Comment: 104-2 Performed By: #### L 501.9520, L501.7900 #### [facility] [address] [place], [address] Urine Cultureon 04-27-2025 URC #2 Below infection level. Urine Culture Proteus mirabilis [place] Count 25,000-50,000 Mixed Gram Positive Organisms Mixed [...] TMP SMX Islt LELA <=20 S Normal [facility] Comment on above: Performed By: #### L 400.0001, [id number] #### [facility] [address] [place], [address] Urinalysis, Completeon 04-25 AMORPHOUS 4+ URATE Normal [facility] Comment on above: Order Comment: CLEAN CATCH Performed By: #### L 400.0001, [id number] #### [facility] [address] [place], [address] RBC 0-5 SEEN Normal 0-5 [facility] Comment on above: Order Comment: CLEAN CATCH Performed By: #### L 400.0001, [id number] #### [facility] [address] [place], [address] WBC 50-100 SEEN Normal 0-5 [facility] Comment on above: Order Comment: CLEAN CATCH Performed By: #### L 400.0001, [id number] #### [facility] [address] [place], [address] BACTERIA 0 SEEN Normal None Seen [facility] Comment on above: Order Comment: CLEAN CATCH Performed By: #### L 400.0001, [id number] #### [facility] [address] [place], [address] EPI,SQUAMOUS 0 SEEN Normal 5-10 [facility] Comment on above: Order Comment: CLEAN CATCH Performed By: #### L 400.0001, [id number] #### [facility] [address] [place], [address] Mucus Ql (Urine sed) 0 SEEN Normal [facility] Comment on above: Order Comment: CLEAN CATCH Performed By: #### L 400.0001, [id number] #### [facility] [address] [place], [address] Office Visiton 02-25-2025 Follow-up visit [id number] Andre Blanca 1950 F Date Provider Department Center 02/25/2025 [id number] ESPINOZA [facility] SM WAD None Family History Problem Relation Age of Onset Emphysema Father Alcohol abuse Mother Family Status - Relation Status Age at Father Mother Level of Service:13405 [place] OFFICE/OUTPATIENT NEW LOW MDM 30 MINUTES Reason for Visit and Comments: Follow-up [726865] - Low Back Pain Normal [facility] Progress Noteon 02-25-2025 Progress Note [facility] [address] [place] [address] [place] [address] Dept: [phone] Dept Chief Complaint Patient presents with Follow-up [...] exercises given. and an outside facility - care home. -Written patient information provided in the AVS. -Reasons to call or return discussed (more content not included)... Normal [facility] Basic Metabolic Profile (BMP )on 09-30-2024 BUN/CRE 11.1 RATIO Normal 10-20 [facility] Comment on above: Order Comment: 104-2 Performed By: #### L 100.0500, L500.2500 #### [facility] [address] [place], [address] CA,Total 9.1 mg/dL Normal 8.5-10.1 [facility] Comment on above: Order Comment: 104-2 Performed By: #### L 100.0500, [id number] #### [facility] [address] [place], [address] Chloride [Moles/Vol] 100 mmol/L Normal 98-107 [facility] Comment on above: Order Comment: 104-2 Performed By: #### L 100.0500, L500.2500 #### [facility] [address] [place], [address] CO2 [Moles/Vol] 33.0 mmol/L High 21.0-32.0 [facility] Comment on above: Order Comment: 104-2 Performed By: #### L 100.0500, [id number] #### [facility] [address] [place], [address] Creatinine [Mass/Vol] 0.63 mg/dL Normal 0.55-1.02 [facility] Comment on above: Order Comment: 104-2 Result Comment: The validity of the calculated GFR GFRAA in patients over 70 years has not been determined. Clinical correlation is essential. Performed By: #### L 100.0500, L500.2500 #### [facility] [address] [place], [address] EST GFR - AA 118 mL/min Normal >60 [facility] Comment on above: Order Comment: 104-2 Result Comment: Afri can [place] GFR Calc Performed By: #### L 100.0500, L500.2500 #### [facility] [address] [place], [address] GAP 6 Normal 5-15 [facility] Comment on above: Order Comment: 104-2 Performed By: #### L 100.0500, [id number] #### [facility] [address] [place], [address] GFR/1.73 sq M.predicted among non-blacks MDRD (S/P/Bld) [Vol rate/Area] 98 mL/min/{1.73_m2} Normal >60 [facility] Comment on above: Order Comment: 104-2 Result Comment: Non- GFR Calc Performed By: #### L 100.0500, L500.2500 #### [facility] [address] [place], [address] Glucose [Mass/Vol] 111 mg/dL High 74-106 [facility] Comment on above: Order Comment: 104-2 Result Comment: Fast ing Glucose result from 100 to 125 mg/dL suggests IMPAIRED HOMEOSTASIS per A.D.A. criteria. Performed By: #### L 100.0500, L500.2500 #### [facility] [address] [place], [address] Potassium [Moles/Vol] 3.0 mmol/L Low 3.5-5.1 [facility] Comment on above: Order Comment: 104-2 Result Comment: Slig ht Hemolysis, Result may be falsely increased. Performed By: #### L 100.0500, L500.2500 #### [facility] [address] [place], [address] Sodium [Moles/Vol] 139 mmol/L Normal 136-145 [facility] Comment on above: Order Comment: 104-2 Performed By: #### L 100.0500, [id number] #### [facility] [address] [place], [address] Urea nitrogen [Mass/Vol] 7 mg/dL Normal 7-18 [facility] Comment on above: Order Comment: 104-2 Performed By: #### L 100.0500, [id number] #### [facility] [address] [place], [address] Blood urea nitrogen (BUN)/cr eatinine ratioOrdered By: Kianna Izquierdo on 09-30-2024 Urea nitrogen/Creatinine [Mass ratio] 11.1 mg/mg 10-20 [facility] CBC-Complete Blood Cnt No Di ffon 09-30-2024 Erythrocyte distribution width (RBC) [Ratio] 12.9 % Normal 11.6-14.6 [facility] Comment on above: Order Comment: 104-2 Performed By: #### L 100.0500, [id number] #### [facility] [address] [place], [address] Hematocrit (Bld) [Volume fraction] 36.4 % Low 37-47 [facility] Comment on above: Order Comment: 104-2 Performed By: #### L 100.0500, [id number] #### [facility] [address] [place], [address] Hemoglobin (Bld) [Mass/Vol] 11.3 g/dL Low 12.0-15.0 [facility] Comment on above: Order Comment: 104-2 Performed By: #### L 100.0500, [id number] #### [facility] [address] [place], [address] MCH (RBC) [Entitic mass] 30.0 pg Normal 27.0-32.0 [facility] Comment on above: Order Comment: 104-2 Performed By: #### L 100.0500, [id number] #### [facility] [address] [place], [address] MCHC (RBC) [Mass/Vol] 31.0 g/dL Low 32-36 [facility] Comment on above: Order Comment: 104-2 Performed By: #### L 100.0500, [id number] #### [facility] [address] [place], [address] MCV (RBC) [Entitic vol] 96.6 fL Normal 81-99 [facility] Comment on above: Order Comment: 104-2 Performed By: #### L 100.0500, [id number] #### [facility] [address] [place], [address] Platelet mean volume (Bld) [Entitic vol] 9.6 fL Normal 6.2-12.0 [facility] Comment on above: Order Comment: 104-2 Performed By: #### L 100.0500, [id number] #### [facility] [address] [place], [address] Platelets (Bld) [#/Vol] 381 10*3/uL Normal 150-450 [facility] Comment on above: Order Comment: 104-2 Performed By: #### L 100.0500, [id number] #### [facility] [address] [place], [address] RBC (Bld) [#/Vol] 3.77 10*6/uL Low 4.2-5.4 [facility] Comment on above: Order Comment: 104-2 Performed By: #### L 100.0500, L500.2500 #### [facility] [address] [place], [address] RDW SD 46.2 fl High 35.1-43.9 [facility] Comment on above: Order Comment: 104-2 Performed By: #### L 100.0500, L500.2500 #### [facility] [address] [place], [place], [address] WBC (Bld) [#/Vol] 8.1 10*3/uL Normal 4.4-11.0 [facility] Comment on above: Order Comment: 104-2 Performed By: #### L 100.0500, L500.2500 #### [facility] [address] [place], [place], [id number] Carbon dioxide measurementOr dered By: Kianna Izquierdo on 09-30-2024 CO2 [Moles/Vol] 33.0 mmol/L High 21.0-32.0 [facility] Chloride measurementOrdered By: Kianna Izquierdo on 09-30-2024 Chloride [Moles/Vol] 100 mmol/L 98-107 [facility] Erythrocyte distribution wid th ratioOrdered By: Kianna Izquierdo on 09-30-2024 Erythrocyte distribution width (RBC) [Ratio] 12.9 % 11.6-14.6 [facility] Erythrocyte distribution wid th standard deviationOrdered By: Kianna Izquierdo on 09-30-2024 Erythrocyte distribution width (RBC) [Entitic vol] 46.2 fL High 35.1-43.9 [facility] Estimated glomerular filtrat ion rate (GFR) AmericanOrdered By: Kianna Izquierdo on 09-30-2024 Estimated GFR (MDRD) Amer 118 mL/min >60 [facility] Comment on above: GFR Calc Glomerular filtration rate ( GFR) estimationOrdered By: Kianna Izquierdo on 09-30-2024 Estimated GFR (MDRD) Non-Af Amer 98 mL/min >60 [facility] Comment on above: Non- GFR Calc Glucose measurementOrdered B y: Kianna Izquierdo on 09-30-2024 Glucose [Mass/Vol] 111 mg/dL High 74-106 [facility] Comment on above: Fasting Glucose resu lt from 100 to 125 mg/dL suggests IMPAIRED HOMEOSTASIS per A.D.A. criteria. Hematocrit Auto (Bld) [Volum e fraction]Ordered By: Kianna Izquierdo on 09-30-2024 Hematocrit (Bld) [Volume fraction] 36.4 % Low 37-47 [facility] Hemoglobin measurementOrdere d By: Kianna Izquierdo on 09-30-2024 Hemoglobin (Bld) [Mass/Vol] 11.3 g/dL Low 12.0-15.0 [facility] MCV (mean corpuscular volume ) determinationOrdered By: Kianna Izquierdo on 09-30-2024 MCV (RBC) [Entitic vol] 96.6 fL 81-99 [facility] Mean corpuscular hemoglobin (MCH) determinationOrdered By: Kianna Izquierdo on 09-30-2024 MCH (RBC) [Entitic mass] 30.0 pg 27.0-32.0 [facility] Mean corpuscular hemoglobin concentration (MCHC) determinationOrdered By: Kianna Izquierdo on 09-30-2024 MCHC (RBC) [Mass/Vol] 31.0 g/dL Low 32-36 [facility] Mean platelet volume determi nationOrdered By: Kianna Izquierdo on 09-30-2024 Platelet mean volume (Bld) [Entitic vol] 9.6 fL 6.2-12.0 [facility] Platelet countOrdered By: Doc Deras on 09-30-2024 Platelets (Bld) [#/Vol] 381 10*3/uL 150-450 [facility] Potassium measurementOrdered By: Kianna Izquierdo on 09-30-2024 Potassium [Moles/Vol] 3.0 mmol/L Low 3.5-5.1 [facility] Comment on above: Slight Hemolysis, Re sult may be falsely increased. RBC Auto (Bld) [#/Vol]Ordere d By: Kianna Izquierdo on 09-30-2024 RBC (Bld) [#/Vol] 3.77 10*6/uL Low 4.2-5.4 [facility] Serum anion gap measurementO rdered By: Kianna Izquierdo on 09-30-2024 Anion gap [Moles/Vol] 6 mmol/L 5-15 [facility] Serum or plasma calcium carlie urement (mass/volume)Ordered By: Kianna Izquierdo on 09-30-2024 Calcium [Mass/Vol] 9.1 mg/dL 8.5-10.1 [facility] Serum or plasma creatinine m easurement (mass/volume)Ordered By: Kianna Izquierdo on 09-30-2024 Creatinine [Mass/Vol] 0.63 mg/dL 0.55-1.02 [facility] Comment on above: The validity of the calculated GFR & GFRAA in patients over 70 years has not been determined. Clinical correlation is essential. Serum or plasma urea nitroge n measurement (mass/volume)Ordered By: Kianna Izquierdo on 09-30-2024 Urea nitrogen [Mass/Vol] 7 mg/dL 7-18 [facility] Sodium levelOrdered By: Manpreet Izquierdo on 09-30-2024 Sodium [Moles/Vol] 139 mmol/L 136-145 [facility] White blood cell (WBC) count Ordered By: Kianna Izquierdo on 09-30-2024 WBC (Bld) [#/Vol] 8.1 10*3/uL 4.4-11.0 [facility] 30on 09-27-2024 30 Problem: Pain - [...] Interventions Goal: Assess Nutritional Intake Outcome: Progressing Normal [facility] [id number] 09-27-2024 [id number] Auth approved. TCC messaged attending to place orders, RN and SW to make aware of DC today. Discharge order placed. ROSALIO completed. TC tasked [employer] to set up transport. Transport set up for 3:00 pm. TCC notified RN and executive legal secretary of time. TCC updated pt at bedside of DC and time and possible cost of transport. Pt verbalized understanding. TCC spoke to son via phone call to update and time. [employer] notified facility. TCC tasked [employer] to transmit discharge ordrers to SNF. Pt does not need PASR as she is a return to same facility. Discharge date updated and milestones completed. Pt will be transported to [facility] via ambulance transport today at 3:00 pm. [facility] [id number] Confirmed pickup chip e of 3 pm by transport company Miki castellano [employer] at phone number . Location of facility drop off is [facility]. Facility notified via [facility], [facility]CC Betzaida Andrade notified on secure chat. [facility] [id number] MAR & Discharge med list transmitted to [facility] via [employer] per TCC request. [facility] [id number] Transport requested in [employer]. Awaiting time confirmation. [facility] Nursing Noteon 09-27-2024 Nursing Note Patient IV taken out . Patient discharged off unit in stable condition via private vehicle. [facility] 30on 09-26-2024 30 Problem: Pain - Adul [...] on admission and per policy Avoid shearing [facility] [id number] 09-26-2024 [id number] TCC updated SNF that plan to start auth today. TCC tasked Rosanna to start auth for [facility]. Auth pending. TCC will follow for auth. Normal [facility] BASIC METABOLIC PANELon 09-14 Anion gap [Moles/Vol] 9 mmol/L Normal 3-13 [facility] Comment on above: Performed By: #### L AB15, [id number] ####Cardiovascular Radiologic Technologist: STAR DE LA ROSA ([id number])[facility])[address] [place] [address] Calcium [Mass/Vol] 8.8 mg/dL Normal 8.8-10.0 [facility] Comment on above: Performed By: #### L AB15, [id number] ####Cardiovascular Radiologic Technologist: STAR DE LA ROSA ([id number])[facility])[address] [place] [address] Chloride [Moles/Vol] 103 mmol/L Normal 98-107 [facility] Comment on above: Performed By: #### L AB15, [id number] ####Cardiovascular Radiologic Technologist: STAR DE LA ROSA ([id number])[facility])[address] [place] [address] CO2 [Moles/Vol] 29 mmol/L Normal 23-31 [facility] Comment on above: Performed By: #### L AB15, [id number] ####Cardiovascular Radiologic Technologist: STAR DE LA ROSA ([id number])[facility])[address] [place] [address] Creatinine [Mass/Vol] 0.68 mg/dL Normal 0.57-1.11 [facility] Comment on above: Performed By: #### L AB15, [id number] ####Cardiovascular Radiologic Technologist: STAR DE LA ROSA ([id number])[facility])[address] [place] [address] GLOMERULAR FILTRATION RATE ML/MIN/1.73 SQ M.PREDICTED >90.0 Normal >60.0 [facility] Comment on above: Result Comment: Calc ulation based on the Chronic Kidney Disease Epidemiology Collaboration (CKD-EPI) equation refit without adjustment for race Performed By: #### L AB15, [id number] ####Cardiovascular Radiologic Technologist: STAR DE LA ROSA ([id number])[address] Glucose [Mass/Vol] 116 mg/dL High 82-115 [facility] Comment on above: Performed By: #### L AB15, [id number] ####Cardiovascular Radiologic Technologist: STAR DE LA ROSA ([id number])[facility])[address] [place] [address] Potassium [Moles/Vol] 3.5 mmol/L Normal 3.5-5.1 [facility] Comment on above: Result Comment: [facility] potassium values may be up to 0.5 mmol/L lower than serum values. Performed By: #### L AB15, [id number] ####Cardiovascular Radiologic Technologist: STAR DE LA ROSA ([id number])[address] Sodium [Moles/Vol] 141 mmol/L Normal 136-145 [facility] Comment on above: Performed By: #### L AB15, [id number] ####Cardiovascular Radiologic Technologist: STAR DE LA ROSA ([id number])[address] Urea nitrogen [Mass/Vol] 6 mg/dL Low 9-23 [facility] Comment on above: Performed By: #### L AB15, [id number] ####Cardiovascular Radiologic Technologist: STAR DE LA ROSA ([id number])[address] Bacteria identified Aer cx N om (Lower resp)Ordered By: Marjorie Whittington on 09-26-2024 Gram Stain Result Rare Epithelial cell s per low power field [facility] Gram Stain Result Many Polymorphonucle ar leukocytes per low power field [facility] Gram Stain Result No organisms seen [facility] Bacteria identified Cx Nom ( Bld)Ordered By: Mukund Fox on 09-26-2024 Interpretation and review of laboratory results Abnormal [facility] Blood Collection Sit e: Right Wrist [facility] Basic metabolic 1998 panelon 09-26-2024 Anion gap [Moles/Vol] 9 mmol/L 3 - 13 mmol/L [facility] Calcium [Mass/Vol] 8.8 mg/dL 8.8 - 10. 0 mg/dL [facility] Chloride [Moles/Vol] 103 mmol/L 98 - 10 7 mmol/L [facility] CO2 [Moles/Vol] 29 mmol/L 23 - 31 mmol/L [facility] Creatinine [Mass/Vol] 0.68 mg/dL 0.57 - 1.11 mg/dL [facility] GFR/1.73 sq M.predicted (S/P/Bld) [Vol rate/Area] - PINF [facility] Comment on above: Calculation based on the Chronic Kidney Disease Epidemiology Collaboration (CKD-EPI) equation refit without adjustment for race Glucose [Mass/Vol] 116 mg/dL High 82 - 115 mg/dL [facility] Interpretation and review of laboratory results Abnormal [facility] Potassium [Moles/Vol] 3.5 mmol/L 3.5 - 5.1 mmol/L [facility] Comment on above: Plasma potassium holland ues may be up to 0.5 mmol/L lower than serum values. Sodium [Moles/Vol] 141 mmol/L 136 - 145 mmol/L [facility] Urea nitrogen [Mass/Vol] 6 mg/dL Low 9 - 23 mg/dL [facility] CBC W Auto Differential pane l (Bld)on 09-26-2024 Basophils (Bld) [#/Vol] 0.1 10*3/uL 0.0 - 0.2 10*3/uL [facility] Basophils/100 WBC (Bld) 1.1 % 0.0 - 2.0 % [facility] Eosinophils (Bld) [#/Vol] 0.3 10*3/uL 0.0 - 0.5 10*3/uL [facility] Eosinophils/100 WBC (Bld) 3 % 0.0 - 6.0 % [facility] Erythrocyte distribution width (RBC) [Ratio] 13.2 % 11.5 - 15.0 % [facility] Hematocrit (Bld) [Volume fraction] 33 % Low 35.0 - 47.0 % [facility] Hemoglobin (Bld) [Mass/Vol] 11.1 g/dL Low 11.7 - 16.0 g/dL [facility] Immature granulocytes (Bld) [#/Vol] 0.2 10*3/uL High NINF - 0.1 10*3/uL [facility] Immature granulocytes/100 WBC (Bld) 1.7 % 0.0 - 2.0 % [facility] Interpretation and review of laboratory results Abnormal [facility] Lymphocytes (Bld) [#/Vol] 1.4 10*3/uL 1.0 - 4.3 10*3/uL [facility] Lymphocytes/100 WBC (Bld) 13.8 % Low 15.0 - 45.0 % [facility] MCH (RBC) [Entitic mass] 30.9 pg 26.0 - 34.0 pg [facility] MCHC (RBC) [Mass/Vol] 33.6 % 30.5 - 36.0 % [facility] MCV (RBC) [Entitic vol] 91.9 fL 77.0 - 99.0 fL [facility] Monocytes (Bld) [#/Vol] 1.2 10*3/uL High 0.0 - 0.9 10*3/uL [facility] Monocytes/100 WBC (Bld) 11 % 5.0 - 13.0 % [facility] Neutrophils (Bld) [#/Vol] 7.3 10*3/uL 1.8 - 7.5 10*3/uL [facility] Neutrophils/100 WBC (Bld) 69.4 % 38.0 - 82.0 % [facility] Nucleated RBC/100 WBC (Bld) [Ratio] 0 % [facility] Platelet mean volume (Bld) [Entitic vol] 10.1 fL 9.0 - 12.7 fL [facility] Platelets (Bld) [#/Vol] 294 10*3/uL 140 - 440 10*3/uL [facility] RBC (Bld) [#/Vol] 3.59 10*6/uL Low 3.80 - 5.2 0 10*6/uL [facility] WBC (Bld) [#/Vol] 10.5 10*3/uL 3.6 - 10.7 10*3/uL [facility] CBC WITH AUTO DIFFERENTIALon 09-26-2024 Basophils (Bld) [#/Vol] 0.1 10*3/uL Normal 0.0-0.2 [facility] Comment on above: Performed By: #### L [id number] ####Cardiovascular Radiologic Technologist: STAR DE LA ROSA ([id number])[facility])[address] [place] [address] Basophils/100 WBC (Bld) 1.1 % Normal 0.0-2.0 [facility] Comment on above: Performed By: #### L [id number] ####Cardiovascular Radiologic Technologist: STAR DE LA ROSA ([id number])[facility])[address] [place] [address] Eosinophils (Bld) [#/Vol] 0.3 10*3/uL Normal 0.0-0.5 [facility] Comment on above: Performed By: #### L [id number] ####Cardiovascular Radiologic Technologist: STAR DE LA ROSA ([id number])[facility])[address] [place] [address] Eosinophils/100 WBC (Bld) 3.0 % Normal 0.0-6.0 [facility] Comment on above: Performed By: #### L [id number] ####Cardiovascular Radiologic Technologist: STAR DE LA ROSA ([id number])[facility])[address] [place] [address] Erythrocyte distribution width (RBC) [Ratio] 13.2 % Normal 11.5-15.0 [facility] Comment on above: Performed By: #### L [id number] ####Cardiovascular Radiologic Technologist: STAR DE LA ROSA ([id number])[facility])[address] [place] [address] Hematocrit (Bld) [Volume fraction] 33.0 % Low 35.0-47.0 [facility] Comment on above: Performed By: #### L [id number] ####Cardiovascular Radiologic Technologist: STAR DE LA ROSA ([id number])[facility])[address] [place] [address] Hemoglobin (Bld) [Mass/Vol] 11.1 g/dL Low 11.7-16.0 [facility] Comment on above: Performed By: #### L [id number] ####Cardiovascular Radiologic Technologist: STAR [id number])[facility])[address] [place] [address] IMMATURE GRANS % 1.7 % Normal 0.0-2.0 [facility] Comment on above: Performed By: #### L [id number] ####Cardiovascular Radiologic Technologist: STAR DE LA ROSA ([id number])[facility])[address] [place] [address] IMMATURE GRANS ABSOLUTE 0.2 10*3/uL High <0.1 [facility] Comment on above: Performed By: #### L [id number] ####Cardiovascular Radiologic Technologist: STAR DE LA ROSA ([id number])[facility])[address] [place] [address] Lymphocytes (Bld) [#/Vol] 1.4 10*3/uL Normal 1.0-4.3 [facility] Comment on above: Performed By: #### L [id number] ####Cardiovascular Radiologic Technologist: STAR DE LA ROSA ([id number])[facility])[address] [place] [address] Lymphocytes/100 WBC (Bld) 13.8 % Low 15.0-45.0 [facility] Comment on above: Performed By: #### L [id number] ####Cardiovascular Radiologic Technologist: STAR DE LA ROSA ([id number])[facility])[address] [place] [address] MCH (RBC) [Entitic mass] 30.9 pg Normal 26.0-34.0 [facility] Comment on above: Performed By: #### L [id number] ####Cardiovascular Radiologic Technologist: STAR DE LA ROSA ([id number])[facility])[address] [place] [address] MCHC 33.6 % Normal 30.5-36.0 [facility] Comment on above: Performed By: #### L [id number] ####Cardiovascular Radiologic Technologist: STAR DE LA ROSA ([id number])[facility])[address] [place] [address] MCV (RBC) [Entitic vol] 91.9 fL Normal 77.0-99.0 [facility] Comment on above: Performed By: #### L [id number] ####Cardiovascular Radiologic Technologist: STAR DE LA ROSA ([id number])[facility])[address] [place] [address] Monocytes (Bld) [#/Vol] 1.2 10*3/uL High 0.0-0.9 [facility] Comment on above: Performed By: #### L [id number] ####Cardiovascular Radiologic Technologist: STAR DE LA ROSA ([id number])[facility] ([facility])[address] [place] [address] Monocytes/100 WBC (Bld) 11.0 % Normal 5.0-13.0 [facility] Comment on above: Performed By: #### L [id number] ####Cardiovascular Radiologic Technologist: STAR DE LA ROSA ([id number])[facility])[address] [place] [address] NEUTROPHILS ABSOLUTE 7.3 10*3/uL Normal 1.8-7.5 [facility] Comment on above: Performed By: #### L [id number] ####Cardiovascular Radiologic Technologist: STAR DE LA ROSA ([id number])[facility])[address] [place] [address] Neutrophils/100 WBC (Bld) 69.4 % Normal 38.0-82.0 [facility] Comment on above: Performed By: #### L [id number] ####Cardiovascular Radiologic Technologist: STAR DE LA ROSA ([id number])[facility] ([facility])[address] [place] [address] NRBC 0.0 /100 WBCs Normal 0.0-2.0 [facility] Comment on above: Performed By: #### L [id number] ####Cardiovascular Radiologic Technologist: STAR DE LA ROSA ([id number])[facility])[address] [place] [address] Platelet mean volume (Bld) [Entitic vol] 10.1 fL Normal 9.0-12.7 [facility] Comment on above: Performed By: #### L [id number] ####Cardiovascular Radiologic Technologist: STAR DE LA ROSA ([id number])[facility] ([facility])[address] [place] [address] Platelets (Bld) [#/Vol] 294 10*3/uL Normal 140-440 [facility] Comment on above: Performed By: #### L [id number] ####Cardiovascular Radiologic Technologist: STAR DE LA ROSA ([id number])[facility] ([facility])[address] [place] [address] RBC (Bld) [#/Vol] 3.59 10*6/uL Low 3.80-5.20 [facility] Comment on above: Performed By: #### L [id number] ####Cardiovascular Radiologic Technologist: STAR DE LA ROSA ([id number])[facility] ([facility])[address] [place] [address] WBC (Bld) [#/Vol] 10.5 10*3/uL Normal 3.6-10.7 [facility] Comment on above: Performed By: #### L [id number] ####Cardiovascular Radiologic Technologist: STAR DE LA ROSA ([id number])[facility] ([facility])[address] [place] [address] Laboratory - Chemistry and C hemistry - challengeon 09-26-2024 Magnesium [Mass/Vol] 1.6 mg/dL 1.6 - 2 .6 mg/dL [facility] Laboratory - Microbiology an d Antimicrobial susceptibilityOrdered By: Mukund Fox on 09-26-2024 Bacteria identified Cx Nom (Bld) Staphylococcus epidermidis Critically abnormal [facility] Comment on above: Contamination likely unless additional blood culture sets are found to be positive with the same organism. This is an edited result. Previous organism was Gram-positive cocci on 09/24/2024 at 0802 EST. Laboratory - Microbiology an d Antimicrobial susceptibilityOrdered By: Marjorie Whittington on 09-26-2024 Bacteria identified Aer cx Nom (Lower resp) Few respiratory sena present. [facility] MAGNESIUMon 09-26-2024 Magnesium [Mass/Vol] 1.6 mg/dL Normal 1.6-2.6 [facility] Comment on above: Result Comment: KAMILLA Gill COMMENTS: Higher values can be expected in females during menses. Performed By: #### L AB15, [id number] ####Cardiovascular Radiologic Technologist: STAR DE LA ROSA ([id number])[facility] ([place] [address] [place] Magnesium [Mass/Vol]on 09-26 Interpretation and review of laboratory results Normal [facility] Higher values can be expected in females during menses. [facility] No Panel Informationon 09-26 [facility] Nursing Noteon 09-26-2024 Nursing Note Wound Care [...] verbalized understanding. Prevention Measures in place, including: Parks sheet with pillows in place, Bilateral) foam [...] Voicera for any questions or concerns. Kimmy Alexandre, RN, BSN Normal [facility] Progress Noteon 09-26-2024 Progress Note [facility] Medical [facility] Geriatric Medicine Inpatient Consult Service [...] review of chart, plan to return to [facility] Bipolar disorder - per facility is followed by in house psych team at [facility] - see medication recommendations as below, significant polypharmacy- on several psych medications, would benefit from psychiatry input for ability to limit her pill burden Polypharmacy - Per nurse Carli at [facility] on 09/24- patient is reported to be [...] of continuation of both Seroquel and Risperdal alf - Tizanidine 2mg BID- unclear indication for this, would recommend attempts at gradual dose reduction vs changing to PRN - Pregabalin 150mg BID- restarted - Vistaril 25mg BID- OK to continue to hold at this time, 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 alternative alf- due to anticholinergic effects may further contribute [...] she knows that she is currently at [facility] Therapy recommendations Seen by PT/OT today- both [...] (Buspar) tablet (more content not included)... Normal [facility] [id number] 09-25-2024 [id number] Attending wanting pt to return SNF LOC if possible, PT recommending SNF. [facility] will take pt back SNF LOC. Pt is agreeable to this. Per attending, okay to star auth. No PASR needed as pt is a return to same facility. TCC tasked PT and OT to see for updated notes. TCC will follow for notes to start auth. Normal [facility] BASIC METABOLIC PANELon 09-14 Anion gap [Moles/Vol] 8 mmol/L Normal 3-13 [facility] Comment on above: Performed By: #### L [id number] ####Cardiovascular Radiologic Technologist: SOFIE BARAJAS ([id number])[facility])[address] [place] [address]#### LAB15, LAB69, [id number], [id number] ####Cardiovascular Radiologic Technologist: STAR DE LA ROSA ([id number])[facility] ([facility])[address] [place] [address] Calcium [Mass/Vol] 8.9 mg/dL Normal 8.8-10.0 [facility] Comment on above: Performed By: #### L [id number] ####Cardiovascular Radiologic Technologist: SOFIE BARAJAS ([id number])[facility] ([facility])[address] [place] [address]#### LAB15, LAB69, [id number], [id number] ####Cardiovascular Radiologic Technologist: STAR DE LA ROSA ([id number])[facility] [facility] ([facility])[address] [place] [address] Chloride [Moles/Vol] 103 mmol/L Normal 98-107 [facility] Comment on above: Performed By: #### L [id number] ####Cardiovascular Radiologic Technologist: SOFIE BARAJAS ([id number])[facility] [place] [address] [place]#### LAB15, LAB69, [id number], [id number] ####Cardiovascular Radiologic Technologist: STAR DE LA ROSA ([phone])[facility] [place] [address] CO2 [Moles/Vol] 27 mmol/L Normal 23-31 [facility] Comment on above: Performed By: #### L [id number] ####Cardiovascular Radiologic Technologist: SOFIE BARAJAS ([id number])[facility] [place] ([facility])[address]#### LAB15, LAB69, [id number], [id number] ####Cardiovascular Radiologic Technologist: STAR DE LA ROSA ([phone])[facility] ([facility])[address] [place] [address] Creatinine [Mass/Vol] 0.65 mg/dL Normal 0.57-1.11 [facility] Comment on above: Performed By: #### L [id number] ####Cardiovascular Radiologic Technologist: SOFIE BARAJAS ([phone])[facility] ([facility])[address] [place] [address]#### LAB15, LAB69, [id number], [id number] ####Cardiovascular Radiologic Technologist: STAR DE LA ROSA ([id number])[facility] ([facility])[address] [place] [address] GLOMERULAR FILTRATION RATE ML/MIN/1.73 SQ M.PREDICTED >90.0 Normal >60.0 [facility] Comment on above: Result Comment: Calc ulation based on the Chronic Kidney Disease Epidemiology Collaboration (CKD-EPI) equation refit without adjustment for race Performed By: #### L [id number] ####Cardiovascular Radiologic Technologist: SOFIE BARAJAS ([phone])[facility] [place] ([facility])[address]#### LAB15, LAB69, [id number], [id number] ####Cardiovascular Radiologic Technologist: STAR DE LA ROSA ([id number])[facility] ([facility])[address] [place] [address] Glucose [Mass/Vol] 99 mg/dL Normal 82-115 [facility] Comment on above: Performed By: #### L [id number] ####Cardiovascular Radiologic Technologist: SOFIE BARAJAS ([phone])[facility] [place] ([facility])[address] [place] [address]#### LAB15, LAB69, [id number], [id number] ####Cardiovascular Radiologic Technologist: STAR DE LA ROSA ([phone])[facility] ([facility] [place] [address] Potassium [Moles/Vol] 3.5 mmol/L Normal 3.5-5.1 [facility] Comment on above: Result Comment: [facility] potassium values may be up to 0.5 mmol/L lower than serum values. Performed By: #### L [id number] ####Cardiovascular Radiologic Technologist: SOFIE BARAJAS ([phone])[facility] (HLAB)[address] [place] [address]#### LAB15, LAB69, [id number], [id number] ####Cardiovascular Radiologic Technologist: STAR DE LA ROSA ([id number])[facility] [place] [address] Sodium [Moles/Vol] 138 mmol/L Normal 136-145 [facility] Comment on above: Performed By: #### L [id number] ####Cardiovascular Radiologic Technologist: SOFIE BARAJAS ([id number])[facility] (HL[facility])[address] [place] [address]#### LAB15, LAB69, [id number], [id number] ####Cardiovascular Radiologic Technologist: STAR DE LA ROSA ([phone])[facility] [place] [address] Urea nitrogen [Mass/Vol] 9 mg/dL Normal 9-23 [facility] Comment on above: Performed By: #### L [id number] ####Cardiovascular Radiologic Technologist: SOFIE BARAJAS ([id number])[facility] (HL[facility])[address] [place] [address]#### LAB15, LAB69, [id number], [id number] ####Cardiovascular Radiologic Technologist: STAR DE LA ROSA ([phone])[facility] [place] [address] Basic metabolic 1998 panelon 09-25-2024 Anion gap [Moles/Vol] 8 mmol/L 3 - 13 mmol/L [facility] Calcium [Mass/Vol] 8.9 mg/dL 8.8 - 10. 0 mg/dL [facility] Chloride [Moles/Vol] 103 mmol/L 98 - 10 7 mmol/L [facility] CO2 [Moles/Vol] 27 mmol/L 23 - 31 mmol/L [facility] Creatinine [Mass/Vol] 0.65 mg/dL 0.57 - 1.11 mg/dL [facility] GFR/1.73 sq M.predicted (S/P/Bld) [Vol rate/Area] - PINF [facility] Comment on above: Calculation based on the Chronic Kidney Disease Epidemiology Collaboration (CKD-EPI) equation refit without adjustment for race Glucose [Mass/Vol] 99 mg/dL 82 - 115 mg/dL [facility] Interpretation and review of laboratory results Normal [facility] Potassium [Moles/Vol] 3.5 mmol/L 3.5 - 5.1 mmol/L [facility] Comment on above: Plasma potassium holland ues may be up to 0.5 mmol/L lower than serum values. Sodium [Moles/Vol] 138 mmol/L 136 - 145 mmol/L [facility] Urea nitrogen [Mass/Vol] 9 mg/dL 9 - 23 mg/dL [facility] C. DIFFICILE BY PCR WITH REF NICK TO EIAon 09-25-2024 C. DIFFICILE BY PCR WITH REFLEX TO EIA C. DIFFICILE TOXIN PCR Reference Not Detected Not Detected ORDER COMMENTS: C. difficile infection is unlikely to be present. Methodology: Real-time PCR Normal [facility] Comment on above: Performed By: #### L [id number], [id number] ####Cardiovascular Radiologic Technologist: STAR DE LA ROSA ([id number])[facility] ([address] C. difficile toxin genes KAMLA +probe Ql (Stl)on 09-25-2024 C. difficile toxin B tcdB gene KAMLA+probe Ql (Stl) Not detected Not Detected [facility] Interpretation and review of laboratory results Normal [facility] C. difficile infecti on is unlikely to be present. Methodology: Real-time PCR [facility] CBC W Auto Differential pane l (Bld)on 09-25-2024 Basophils (Bld) [#/Vol] 0.1 10*3/uL 0.0 - 0.2 10*3/uL [facility] Basophils/100 WBC (Bld) 0.5 % 0.0 - 2.0 % [facility] Eosinophils (Bld) [#/Vol] 0.2 10*3/uL 0.0 - 0.5 10*3/uL [facility] Eosinophils/100 WBC (Bld) 1.7 % 0.0 - 6.0 % [facility] Erythrocyte distribution width (RBC) [Ratio] 12.8 % 11.5 - 15.0 % [facility] Hematocrit (Bld) [Volume fraction] 34.6 % Low 35.0 - 47.0 % [facility] Hemoglobin (Bld) [Mass/Vol] 11 g/dL Low 11.7 - 16.0 g/dL [facility] Immature granulocytes (Bld) [#/Vol] 0.1 10*3/uL High NINF - 0.1 10*3/uL [facility] Immature granulocytes/100 WBC (Bld) 0.7 % 0.0 - 2.0 % [facility] Interpretation and review of laboratory results Abnormal [facility] Lymphocytes (Bld) [#/Vol] 1.3 10*3/uL 1.0 - 4.3 10*3/uL [facility] Lymphocytes/100 WBC (Bld) 11.1 % Low 15.0 - 45.0 % [facility] MCH (RBC) [Entitic mass] 30.2 pg 26.0 - 34.0 pg [facility] MCHC (RBC) [Mass/Vol] 31.8 % 30.5 - 36.0 % [facility] MCV (RBC) [Entitic vol] 95.1 fL 77.0 - 99.0 fL [facility] Monocytes (Bld) [#/Vol] 1.2 10*3/uL High 0.0 - 0.9 10*3/uL [facility] Monocytes/100 WBC (Bld) 9.7 % 5.0 - 13.0 % [facility] Neutrophils (Bld) [#/Vol] 9.2 10*3/uL High 1.8 - 7.5 10*3/uL [facility] Neutrophils/100 WBC (Bld) 76.3 % 38.0 - 82.0 % [facility] Nucleated RBC/100 WBC (Bld) [Ratio] 0 % [facility] Platelet mean volume (Bld) [Entitic vol] 10.3 fL 9.0 - 12.7 fL [facility] Platelets (Bld) [#/Vol] 246 10*3/uL 140 - 440 10*3/uL [facility] RBC (Bld) [#/Vol] 3.64 10*6/uL Low 3.80 - 5.2 0 10*6/uL [facility] WBC (Bld) [#/Vol] 12 10*3/uL High 3.6 - 10.7 10*3/uL [facility] CBC WITH AUTO DIFFERENTIALon 09-25-2024 Basophils (Bld) [#/Vol] 0.1 10*3/uL Normal 0.0-0.2 [facility] Comment on above: Performed By: #### L [id number] ####Cardiovascular Radiologic Technologist: STAR DE LA ROSA ([id number])[facility])[address] [place] [address] Basophils/100 WBC (Bld) 0.5 % Normal 0.0-2.0 [facility] Comment on above: Performed By: #### L [id number] ####Cardiovascular Radiologic Technologist: STAR DE LA ROSA ([id number])[facility])[address] [place] [address] Eosinophils (Bld) [#/Vol] 0.2 10*3/uL Normal 0.0-0.5 [facility] Comment on above: Performed By: #### L [id number] ####Cardiovascular Radiologic Technologist: STAR DE LA ROSA ([id number])[facility])[address] [place] [address] Eosinophils/100 WBC (Bld) 1.7 % Normal 0.0-6.0 [facility] Comment on above: Performed By: #### L [id number] ####Cardiovascular Radiologic Technologist: STAR DE LA ROSA ([id number])[facility])[address] [place] [address] Erythrocyte distribution width (RBC) [Ratio] 12.8 % Normal 11.5-15.0 [facility] Comment on above: Performed By: #### L [id number] ####Cardiovascular Radiologic Technologist: STAR DE LA ROSA ([id number])[address] Hematocrit (Bld) [Volume fraction] 34.6 % Low 35.0-47.0 [facility] Comment on above: Performed By: #### L [id number] ####Cardiovascular Radiologic Technologist: STAR DE LA ROSA ([id number])[address] Hemoglobin (Bld) [Mass/Vol] 11.0 g/dL Low 11.7-16.0 [facility] Comment on above: Performed By: #### L [id number] ####Cardiovascular Radiologic Technologist: STAR DE LA ROSA ([id number])[address] IMMATURE GRANS % 0.7 % Normal 0.0-2.0 [facility] Comment on above: Performed By: #### L [id number] ####Cardiovascular Radiologic Technologist: STAR DE LA ROSA ([id number])[address] IMMATURE GRANS ABSOLUTE 0.1 10*3/uL High <0.1 [facility] Comment on above: Performed By: #### L [id number] ####Cardiovascular Radiologic Technologist: STAR DE LA ROSA ([id number])[facility])[address] [place] [address] Lymphocytes (Bld) [#/Vol] 1.3 10*3/uL Normal 1.0-4.3 [facility] Comment on above: Performed By: #### L [id number] ####Cardiovascular Radiologic Technologist: STAR DE LA ROSA ([id number])[address] Lymphocytes/100 WBC (Bld) 11.1 % Low 15.0-45.0 [facility] Comment on above: Performed By: #### L [id number] ####Cardiovascular Radiologic Technologist: STAR DE LA ROSA ([id number])[facility])[address] [place] [address] MCH (RBC) [Entitic mass] 30.2 pg Normal 26.0-34.0 [facility] Comment on above: Performed By: #### L [id number] ####Cardiovascular Radiologic Technologist: STAR DE LA ROSA ([id number])[facility])[address] [place] [address] MCHC 31.8 % Normal 30.5-36.0 [facility] Comment on above: Performed By: #### L [id number] ####Cardiovascular Radiologic Technologist: STAR DE LA ROSA ([id number])[facility])[address] [place] [address] MCV (RBC) [Entitic vol] 95.1 fL Normal 77.0-99.0 [facility] Comment on above: Performed By: #### L [id number] ####Cardiovascular Radiologic Technologist: STAR DE LA ROSA ([phone])[facility] ([facility])[address] [place] [address] Monocytes (Bld) [#/Vol] 1.2 10*3/uL High 0.0-0.9 [facility] Comment on above: Performed By: #### L [id number] ####Cardiovascular Radiologic Technologist: STAR DE LA ROSA ([id number])[facility])[address] [place] [address] Monocytes/100 WBC (Bld) 9.7 % Normal 5.0-13.0 [facility] Comment on above: Performed By: #### L [id number] ####Cardiovascular Radiologic Technologist: STAR DE LA ROSA ([id number])[facility])[address] [place] [address] NEUTROPHILS ABSOLUTE 9.2 10*3/uL High 1.8-7.5 [facility] Comment on above: Performed By: #### L [id number] ####Cardiovascular Radiologic Technologist: STAR DE LA ROSA ([id number])[facility])[address] [place] [address] Neutrophils/100 WBC (Bld) 76.3 % Normal 38.0-82.0 [facility] Comment on above: Performed By: #### L [id number] ####Cardiovascular Radiologic Technologist: STAR DE LA ROSA ([id number])[facility])[address] [place] [address] NRBC 0.0 /100 WBCs Normal 0.0-2.0 [facility] Comment on above: Performed By: #### L [id number] ####Cardiovascular Radiologic Technologist: STAR DE LA ROSA ([id number])[facility] ([facility])[address] [place] [address] Platelet mean volume (Bld) [Entitic vol] 10.3 fL Normal 9.0-12.7 [facility] Comment on above: Performed By: #### L [id number] ####Cardiovascular Radiologic Technologist: STAR DE LA ROSA ([id number])[facility] ([facility])[address] [place] [address] Platelets (Bld) [#/Vol] 246 10*3/uL Normal 140-440 [facility] Comment on above: Performed By: #### L [id number] ####Cardiovascular Radiologic Technologist: STAR DE LA ROSA ([id number])[facility])[address] [place] [address] RBC (Bld) [#/Vol] 3.64 10*6/uL Low 3.80-5.20 [facility] Comment on above: Performed By: #### L [id number] ####Cardiovascular Radiologic Technologist: STAR DE LA ROSA ([id number])[facility] ([facility])[address] [place] [address] WBC (Bld) [#/Vol] 12.0 10*3/uL High 3.6-10.7 [facility] Comment on above: Performed By: #### L [id number] ####Cardiovascular Radiologic Technologist: STAR DE LA ROSA ([id number])[facility] ([facility])[address] [place] [address] Cobalamin (Vitamin B12) [Mas s/Vol]on 09-25-2024 Interpretation and review of laboratory results Normal [facility] FOLATEon 09-25-2024 FOLATE RESULT 16.3 ng/mL Normal 7.0-31.4 [facility] Comment on above: Performed By: #### L [id number] ####Cardiovascular Radiologic Technologist: SOFIE BARAJAS ([id number])[facility] ([facility])[address] [place] [address]#### LAB15, LAB69, [id number], [id number] ####Cardiovascular Radiologic Technologist: STAR DE LA ROSA ([id number])[facility] ([facility] [place] [address] Folate [Mass/Vol]on 09-25-19 Interpretation and review of laboratory results Normal [facility] GASTROINTESTINAL PCR PANELon 09-25-2024 GASTROINTESTINAL PCR PANEL [...] Norovirus specific assay. Methodology: Multiplex PCR Normal [facility] Comment on above: Performed By: #### L [id number], [id number] ####Cardiovascular Radiologic Technologist: STAR DE LA ROSA ([phone])[facility] ([facility])[address] [place] [address] Gastrointestinal pathogens p perry KAMLA+probe (Stl)Ordered By: Delia Diez on 09-25-2024 Adenovirus F 40/41 Not detected Not Detected [facility] Astrovirus Not detected Not Detected [facility] Campylobacter Not detected Not Detected [facility] Cryptosporidium Not detected Not Detected [facility] Cyclospora cayetanensis Not detected Not Detect ed [facility] Entamoeba histolytica Not detected Not Detected [facility] Enterotoxigenic E coli (ETEC) Not detected Not Detected [facility] Giardia lamblia Not detected Not Detected [facility] Interpretation and review of laboratory results Normal [facility] Norovirus GI/GII Not detected Not Detected [facility] Plesiomonas shigelloides Not detected Not Detected [facility] Rotavirus A Not detected Not Detected [facility] Salmonella Not detected Not Detected [facility] Sapovirus Not detected Not Detected [facility] Shiga toxin-producing E coli (STEC) Not detected Not Detected [facility] Shigella/Enteroinvasive E coli (EIEC) Not detected Not Detected [facility] Vibrio cholerae Not detected Not Detected [facility] Vibrio species Not detected Not Detected [facility] Yersinia enterocolitica Not detected Not Detect ed [facility] A positive Norovirus result on the Film Array GI panel should be interpreted in the context of the patient's history and clinical picture. If results are not consistent, result should be confirmed with a Norovirus specific assay. Methodology: Multiplex PCR [facility] - Chemistry and C hemistry - challengeon 09-25-2024 Cobalamin (Vitamin B12) [Mass/Vol] 602 pg/mL 213 - 816 pg/mL [facility] Folate [Mass/Vol] 16.3 ng/mL 7.0 - 31.4 ng/mL [facility] TSH Qn 0.57 m[IU]/L [facility] Magnesium [Mass/Vol] 1.5 mg/dL Low 1.6 - 2 .6 mg/dL [facility] - Drug toxicology on 09-25-2024 carBAMazepine [Mass/Vol] 11.6 ug/mL 4.0 - 12.0 ug/mL [facility] - Microbiology an d Antimicrobial susceptibilityon 09-25-2024 M. pneumoniae IgM IA Qn (S) 0.29 U/L NINF - 0.76 U/L [facility] Comment on above: INTERPRETIVE INFORMA TION: Mycoplasma [...] more than 12 months post-infection. Performed By: [address] [place] [address] Cabinet Abrasive Sandblaster: Troy Bateman MD, PhD CLIA Number: [id number] MAGNESIUMon 09-25-2024 Magnesium [Mass/Vol] 1.5 mg/dL Low 1.6-2.6 [facility] Comment on above: Result Comment: KAMILLA Gill COMMENTS: Higher values can be expected in females during menses. Performed By: #### L [id number] ####Cardiovascular Radiologic Technologist: SOFIE BARAJAS ([phone])[facility] ([facility])[address] [place] [address]#### LAB15, LAB69, [id number], [id number] ####Cardiovascular Radiologic Technologist: STAR DE LA ROSA ([id number])[facility] ([facility])[address] [place] [address] Magnesium [Mass/Vol]on 09-25 Interpretation and review of laboratory results Abnormal [facility] Higher values can be expected in females during menses. [facility] No Panel Informationon 09-25 [facility] Interpretation and review of laboratory results Normal [facility] Carbamazepine concentrations above 15 ug/mL are often associated with toxicity [facility] Progress Noteon 09-25-2024 Progress Note [facility] Geriatric Medicine Inpatient Consult Service [...] followed by in house psych team at [facility] - see medication recommendations as below, significant polypharmacy- on several psych medications, would benefit from psychiatry input for ability to limit her pill burden Hypothyroidism - TSH within normal limits - per facility her [employer] dose of Levothyroxine is 88mcg, currently ordered 75mcg, please adjust dose if appropriate- defer management to primary team Polypharmacy - I personally called and spoke with nurse Boyce at [facility] on 09/24 to review medications- reported to [...] of continuation of both Seroquel and Risperdal 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 Normal [facility] Progress Note PHYSICAL THERAPY [facility] Treatment Note Name/MRN: Andre Blanca ([id number]) Date of : 1950 Age: 74 y.o. Room/Bed: E5-515/E5-515 A Discharge Recommendation: Senior Care Facility Equipment Needed: No Prior Level of [...] Mobility Raw Score (No Stairs) : 15 [facility] Goals Patient Stated Goal: to return to [...] (ther act x1, gait x1) Walter Bermeo, PT [facility] Progress Note .Nutrition rescreen completed. Patient referred to the Dietitian. Poor po intake.Madelyn Jacobsen DT Normal [facility] THYROID STIMULATING HORMONEo n 09-25-2024 THYROID STIMULATING HORMONE 0.57 uIU/mL Normal 0.35-4.94 [facility] Comment on above: Performed By: #### L [id number] ####Cardiovascular Radiologic Technologist: SOFIE BARAJAS ([id number])[facility] ([facility])[address]#### LAB15, LAB69, [id number], [id number] ####Cardiovascular Radiologic Technologist: STAR DE LA ROSA ([id number])[facility] ([facility])[address] [place] [address] TSH Qnon 09-25-2024 Interpretation and review of laboratory results Normal [facility] VITAMIN B12on 09-25-2024 Cobalamin (Vitamin B12) [Mass/Vol] 602 pg/mL Normal 213-816 [facility] Comment on above: Performed By: #### L [id number] ####Cardiovascular Radiologic Technologist: SOFIE BARAJAS ([id number])[facility] ([facility])[address] [place] [address]#### LAB15, LAB69, [id number], [id number] ####Cardiovascular Radiologic Technologist: STAR DE LA ROSA ([id number])[facility] ([facility])[address] [place] [address] 25-hydroxyvitamin D3 [Mass/V ol]on 09-24-2024 Interpretation and review of laboratory results Normal [facility] Target concentration : 30 - 40 ng/mL; toxicity seen at concentrations >100 ng/mL Therapy is based on measurement of Total 25-OHD with the following classification levels: Less than 20 ng/mL: Indicative of Vit D deficiency 20-30 ng/mL: Suggests Vit D insufficiency Optimal: Greater than or equal to 30 ng/mL Test performed by [employer] Competitive Immunoassay, measuring Total Vitamin D, not individual fractions. [facility] 30on 09-24-2024 30 Problem: Pain - Adul [...] is maintained or improved Outcome: Progressing Normal [facility] 30 Problem: Pain - Adul t Goal: Verbalizes/displays adequate comfort level or baseline comfort level Outcome: Progressing Problem: Safety - Adult Goal: Free from fall injury Outcome: Progressing Problem: Knowledge Deficit Goal: Patient/family/caregiv er demonstrates understanding of disease process, treatment plan, medications, and discharge instructions Outcome: Progressing Normal [facility] [id number] 09-24-2024 [id number] TCC completed chart review. 1 blood culture positive and 1 in process, will follow. PO azithromycin and IV rocephin. 3 L of O2-baseline from facility. Wound care consulted. Geriatrics consulted. PT and OT evals pending. Stool studies ordered, GI and c-diff rule out now. Pt is from [facility]. TCC spoke to pt at bedside, she is agreeable to return. TCC spoke to son Giana via phone call to update of DC plan. TCC tasked EXCHANGE TROUBLE SHOOTER to make a LT return referral. TCC will follow for facility response. Normal [facility] BLOOD TYPE AND SCREEN GELon 09-24-2024 ABO GROUPING O Normal [facility] Comment on above: Order Comment: Don't collect this lab until patient identity is updated. Performed By: #### L [id number] ####Cardiovascular Radiologic Technologist: STAR DE LA ROSA ([id number])[facility] BLOOD [facility] ([facility])[address] [place] [address] RH TYPE IN BLOOD Positive Normal [facility] Comment on above: Order Comment: Don't collect this lab until patient identity is updated. Performed By: #### L [id number] ####Cardiovascular Radiologic Technologist: STAR DE LA ROSA ([id number])[facility] BLOOD BANK ([facility])[address] [place] [address] Blood type and Crossmatch carlos sunshine (Bld)on 09-24-2024 ABO group Nom (Bld) O [facility] Blood group antibody screen GEL Ql Negative [facility] D Ag Ql (RBC) Positive [facility] CARBAMAZEPINEon 09-24-2024 CARBAMAZEPINE 11.6 ug/mL Normal 4.0-12.0 [facility] Comment on above: Result Comment: KAMILLA Gill COMMENTS: Use existing specimen Carbamazepine concentrations above 15 ug/mL are often associated with toxicity Performed By: #### L AB21, [id number] ####Cardiovascular Radiologic Technologist: STAR DE LA ROSA ([id number])[facility] ([facility] [place] [address] CBC W Auto Differential pane l (Bld)on 09-24-2024 Basophils (Bld) [#/Vol] 0 10*3/uL 0.0 - 0.2 10*3/uL [facility] Basophils/100 WBC (Bld) 0.3 % 0.0 - 2.0 % [facility] Eosinophils (Bld) [#/Vol] 0.1 10*3/uL 0.0 - 0.5 10*3/uL [facility] Eosinophils/100 WBC (Bld) 0.4 % 0.0 - 6.0 % [facility] Erythrocyte distribution width (RBC) [Ratio] 12.9 % 11.5 - 15.0 % [facility] Hematocrit (Bld) [Volume fraction] 33.3 % Low 35.0 - 47.0 % [facility] Hemoglobin (Bld) [Mass/Vol] 11 g/dL Low 11.7 - 16.0 g/dL [facility] Immature granulocytes (Bld) [#/Vol] 0.1 10*3/uL High NINF - 0.1 10*3/uL [facility] Immature granulocytes/100 WBC (Bld) 0.5 % 0.0 - 2.0 % [facility] Interpretation and review of laboratory results Abnormal [facility] Lymphocytes (Bld) [#/Vol] 0.9 10*3/uL Low 1.0 - 4.3 10*3/uL [facility] Lymphocytes/100 WBC (Bld) 7.7 % Low 15.0 - 45.0 % [facility] MCH (RBC) [Entitic mass] 30.5 pg 26.0 - 34.0 pg [facility] MCHC (RBC) [Mass/Vol] 33 % 30.5 - 36.0 % [facility] MCV (RBC) [Entitic vol] 92.2 fL 77.0 - 99.0 fL [facility] Monocytes (Bld) [#/Vol] 0.9 10*3/uL 0.0 - 0.9 10*3/uL [facility] Monocytes/100 WBC (Bld) 7.9 % 5.0 - 13.0 % [facility] Neutrophils (Bld) [#/Vol] 9.8 10*3/uL High 1.8 - 7.5 10*3/uL [facility] Neutrophils/100 WBC (Bld) 83.2 % High 38.0 - 82.0 % [facility] Nucleated RBC/100 WBC (Bld) [Ratio] 0 % [facility] Platelet mean volume (Bld) [Entitic vol] 10.3 fL 9.0 - 12.7 fL [facility] Platelets (Bld) [#/Vol] 220 10*3/uL 140 - 440 10*3/uL [facility] RBC (Bld) [#/Vol] 3.61 10*6/uL Low 3.80 - 5.2 0 10*6/uL [facility] WBC (Bld) [#/Vol] 11.8 10*3/uL High 3.6 - 10.7 10*3/uL [facility] CBC WITH AUTO DIFFERENTIALon 09-24-2024 Basophils (Bld) [#/Vol] 0.0 10*3/uL Normal 0.0-0.2 [facility] Comment on above: Performed By: #### L [id number] ####Cardiovascular Radiologic Technologist: STAR DE LA ROSA ([id number])[facility])[address] [place] [address] Basophils/100 WBC (Bld) 0.3 % Normal 0.0-2.0 [facility] Comment on above: Performed By: #### L [id number] ####Cardiovascular Radiologic Technologist: STAR DE LA ROSA ([id number])[facility] ([facility])[address] [place] [address] Eosinophils (Bld) [#/Vol] 0.1 10*3/uL Normal 0.0-0.5 [facility] Comment on above: Performed By: #### L [id number] ####Cardiovascular Radiologic Technologist: STAR DE LA ROSA ([id number])[facility] ([facility])[address] [place] [address] Eosinophils/100 WBC (Bld) 0.4 % Normal 0.0-6.0 [facility] Comment on above: Performed By: #### L [id number] ####Cardiovascular Radiologic Technologist: STAR DE LA ROSA ([id number])[facility])[address] [place] [address] Erythrocyte distribution width (RBC) [Ratio] 12.9 % Normal 11.5-15.0 [facility] Comment on above: Performed By: #### L [id number] ####Cardiovascular Radiologic Technologist: STAR DE LA ROSA ([id number])[address] Hematocrit (Bld) [Volume fraction] 33.3 % Low 35.0-47.0 [facility] Comment on above: Performed By: #### L [id number] ####Cardiovascular Radiologic Technologist: STAR DE LA ROSA ([id number])[address] Hemoglobin (Bld) [Mass/Vol] 11.0 g/dL Low 11.7-16.0 [facility] Comment on above: Performed By: #### L [id number] ####Cardiovascular Radiologic Technologist: STAR DE LA ROSA ([id number])[address] IMMATURE GRANS % 0.5 % Normal 0.0-2.0 [facility] Comment on above: Performed By: #### L [id number] ####Cardiovascular Radiologic Technologist: STAR DE LA ROSA ([id number])[address] IMMATURE GRANS ABSOLUTE 0.1 10*3/uL High <0.1 [facility] Comment on above: Performed By: #### L [id number] ####Cardiovascular Radiologic Technologist: STAR DE LA ROSA ([id number])[address] Lymphocytes (Bld) [#/Vol] 0.9 10*3/uL Low 1.0-4.3 [facility] Comment on above: Performed By: #### L [id number] ####Cardiovascular Radiologic Technologist: STAR DE LA ROSA ([id number])[facility])[address] [place] [address] Lymphocytes/100 WBC (Bld) 7.7 % Low 15.0-45.0 [facility] Comment on above: Performed By: #### L [id number] ####Cardiovascular Radiologic Technologist: STAR DE LA ROSA ([id number])[facility])[address] [place] [address] MCH (RBC) [Entitic mass] 30.5 pg Normal 26.0-34.0 [facility] Comment on above: Performed By: #### L [id number] ####Cardiovascular Radiologic Technologist: STAR DE LA ROSA ([id number])[facility])[address] [place] [address] MCHC 33.0 % Normal 30.5-36.0 [facility] Comment on above: Performed By: #### L [id number] ####Cardiovascular Radiologic Technologist: STAR DE LA ROSA ([id number])[facility])[address] [place] [address] MCV (RBC) [Entitic vol] 92.2 fL Normal 77.0-99.0 [facility] Comment on above: Performed By: #### L [id number] ####Cardiovascular Radiologic Technologist: STAR DE LA ROSA ([id number])[facility])[address] [place] [address] Monocytes (Bld) [#/Vol] 0.9 10*3/uL Normal 0.0-0.9 [facility] Comment on above: Performed By: #### L [id number] ####Cardiovascular Radiologic Technologist: STAR DE LA ROSA ([id number])[facility])[address] [place] [address] Monocytes/100 WBC (Bld) 7.9 % Normal 5.0-13.0 [facility] Comment on above: Performed By: #### L [id number] ####Cardiovascular Radiologic Technologist: STAR DE LA ROSA ([id number])[facility] ([facility] [place] [address] NEUTROPHILS ABSOLUTE 9.8 10*3/uL High 1.8-7.5 [facility] Comment on above: Performed By: #### L [id number] ####Cardiovascular Radiologic Technologist: STAR DE LA ROSA ([id number])[facility] ([facility])[address] [place] [address] Neutrophils/100 WBC (Bld) 83.2 % High 38.0-82.0 [facility] Comment on above: Performed By: #### L [id number] ####Cardiovascular Radiologic Technologist: STAR DE LA ROSA ([id number])[facility] ([facility])[address] [place] [address] NRBC 0.0 /100 WBCs Normal 0.0-2.0 [facility] Comment on above: Performed By: #### L [id number] ####Cardiovascular Radiologic Technologist: STAR DE LA ROSA ([id number])[facility] ([facility])[address] [place] [address] Platelet mean volume (Bld) [Entitic vol] 10.3 fL Normal 9.0-12.7 [facility] Comment on above: Performed By: #### L [id number] ####Cardiovascular Radiologic Technologist: STAR DE LA ROSA ([id number])[facility] ([facility])[address] [place] [address] Platelets (Bld) [#/Vol] 220 10*3/uL Normal 140-440 [facility] Comment on above: Performed By: #### L [id number] ####Cardiovascular Radiologic Technologist: STAR DE LA ROSA ([id number])[facility] ([facility])[address] [place] [address] RBC (Bld) [#/Vol] 3.61 10*6/uL Low 3.80-5.20 [facility] Comment on above: Performed By: #### L [id number] ####Cardiovascular Radiologic Technologist: STAR DE LA ROSA ([id number])[facility] ([facility])[address] [place] [address] [place] WBC (Bld) [#/Vol] 11.8 10*3/uL High 3.6-10.7 [facility] Comment on above: Performed By: #### L [id number] ####Cardiovascular Radiologic Technologist: STAR DE LA ROSA ([id number])[facility] ([facility])[address] [place] [address] COMPREHENSIVE METABOLIC PANE Jay 09-24-2024 Albumin [Mass/Vol] 2.4 g/dL Low 3.4-4.8 [facility] Comment on above: Performed By: #### L [id number], [id number] ####Cardiovascular Radiologic Technologist: STAR DE LA ROSA ([id number])[facility] ([facility])[address] [place] [address] ALP [Catalytic activity/Vol] 104 U/L Normal 40-150 [facility] Comment on above: Performed By: #### L [id number], [id number] ####Cardiovascular Radiologic Technologist: STAR DE LA ROSA ([id number])[facility] ([facility])[address] [place] [address] ALT [Catalytic activity/Vol] 10 U/L Normal <30 [facility] Comment on above: Performed By: #### L [id number], [id number] ####Cardiovascular Radiologic Technologist: STAR DE LA ROSA ([id number])[facility] ([facility])[address] [place] [address] Anion gap [Moles/Vol] 11 mmol/L Normal 3-13 [facility] Comment on above: Performed By: #### L [id number], [id number] ####Cardiovascular Radiologic Technologist: STAR DE LA ROSA ([id number])[facility] ([facility])[address] [place] [address] AST [Catalytic activity/Vol] 31 U/L Normal <34 [facility] Comment on above: Performed By: #### L [id number], [id number] ####Cardiovascular Radiologic Technologist: STAR DE LA ROSA ([id number])[facility] ([facility])[address] [place] [address] Bilirubin [Mass/Vol] 0.5 mg/dL Normal <1.2 [facility] Comment on above: Performed By: #### L [id number], [id number] ####Cardiovascular Radiologic Technologist: STAR DE LA ROSA ([id number])[facility] ([facility])[address] [place] [address] Calcium [Mass/Vol] 8.8 mg/dL Normal 8.8-10.0 [facility] Comment on above: Performed By: #### L [id number], [id number] ####Cardiovascular Radiologic Technologist: STAR DE LA ROSA ([id number])[facility] ([facility])[address] [place] [address] Chloride [Moles/Vol] 102 mmol/L Normal 98-107 [facility] Comment on above: Performed By: #### L [id number], [id number] ####Cardiovascular Radiologic Technologist: STAR DE LA ROSA ([id number])[facility] ([facility])[address] [place] [address] CO2 [Moles/Vol] 25 mmol/L Normal 23-31 [facility] Comment on above: Performed By: #### L [id number], [id number] ####Cardiovascular Radiologic Technologist: STAR DE LA ROSA ([id number])[facility] ([facility])[address] [place] [address] Creatinine [Mass/Vol] 0.76 mg/dL Normal 0.57-1.11 [facility] Comment on above: Performed By: #### L [id number], [id number] ####Cardiovascular Radiologic Technologist: STAR DE LA ROSA ([id number])[facility] ([facility])[address] [place] [address] [place] GLOMERULAR FILTRATION RATE ML/MIN/1.73 SQ M.PREDICTED 81.8 mL/min/1.73m*2 Normal >60.0 [facility] Comment on above: Result Comment: Calc ulation based on the Chronic Kidney Disease Epidemiology Collaboration (CKD-EPI) equation refit without adjustment for race Performed By: #### L [id number], [id number] ####Cardiovascular Radiologic Technologist: STAR DE LA ROSA ([id number])[facility] ([facility])[address] [place] [address] [place] Glucose [Mass/Vol] 127 mg/dL High 82-115 [facility] Comment on above: Performed By: #### L [id number], [id number] ####Cardiovascular Radiologic Technologist: STAR DE LA ROSA ([id number])[facility])[address] [place] [address] Potassium [Moles/Vol] 3.3 mmol/L Low 3.5-5.1 [facility] Comment on above: Result Comment: [facility] potassium values may be up to 0.5 mmol/L lower than serum values. Performed By: #### L AB17, [id number] ####Cardiovascular Radiologic Technologist: STAR DE LA ROSA ([id number])[facility] ([facility])[address] [place] [address] Protein [Mass/Vol] 6.8 g/dL Normal 6.4-8.3 [facility] Comment on above: Performed By: #### L [id number], [id number] ####Cardiovascular Radiologic Technologist: STAR DE LA ROSA ([id number])[facility] ([facility])[address] [place] [address] Sodium [Moles/Vol] 138 mmol/L Normal 136-145 [facility] Comment on above: Performed By: #### L AB17, [id number] ####Cardiovascular Radiologic Technologist: STAR DE LA ROSA ([id number])[facility])[address] [place] [address] Urea nitrogen [Mass/Vol] 11 mg/dL Normal 9-23 [facility] Comment on above: Performed By: #### L AB17, [id number] ####Cardiovascular Radiologic Technologist: STAR DE LA ROSA ([id number])[facility])[address] [place] [address] Comprehensive metabolic 1998 panelon 09-24-2024 Albumin [Mass/Vol] 2.4 g/dL Low 3.4 - 4.8 g/dL [facility] ALP [Catalytic activity/Vol] 104 U/L 40 - 150 U/L [facility] ALT [Catalytic activity/Vol] 10 U/L NINF - 30 U/L [facility] Anion gap [Moles/Vol] 11 mmol/L 3 - 13 mmol/L [facility] AST [Catalytic activity/Vol] 31 U/L NINF - 34 U/L [facility] Bilirubin [Mass/Vol] 0.5 mg/dL NINF - 1.2 mg/dL [facility] Calcium [Mass/Vol] 8.8 mg/dL 8.8 - 10. 0 mg/dL [facility] Chloride [Moles/Vol] 102 mmol/L 98 - 10 7 mmol/L [facility] CO2 [Moles/Vol] 25 mmol/L 23 - 31 mmol/L [facility] Creatinine [Mass/Vol] 0.76 mg/dL 0.57 - 1.11 mg/dL [facility] GFR/1.73 sq M.predicted (S/P/Bld) [Vol rate/Area] 81.8 mL/min - PINF [facility] Comment on above: Calculation based on the Chronic Kidney Disease Epidemiology Collaboration (CKD-EPI) equation refit without adjustment for race Glucose [Mass/Vol] 127 mg/dL High 82 - 115 mg/dL [facility] Interpretation and review of laboratory results Abnormal [facility] Potassium [Moles/Vol] 3.3 mmol/L Low 3.5 - 5.1 mmol/L [facility] Comment on above: Plasma potassium holland ues may be up to 0.5 mmol/L lower than serum values. Protein [Mass/Vol] 6.8 g/dL 6.4 - 8.3 g/dL [facility] Sodium [Moles/Vol] 138 mmol/L 136 - 145 mmol/L [facility] Urea nitrogen [Mass/Vol] 11 mg/dL 9 - 23 mg/dL [facility] Consulton 09-24-2024 Consult [facility] Geriatric Medicine Inpatient Consult Service [...] followed by in house psych team at [facility] - see medication recommendations as below, significant polypharmacy- on several psych medications - recommend consultation to psychiatry for further recommendations to reduce current medication burden as able Hypothyroidism - agree with check of TSH - per facility her [employer] dose of Levothyroxine is 88mcg, currently ordered 75mcg, please adjust dose if appropriate- defer management to primary team Polypharmacy - I personally called and spoke with nurse Boyce at [facility] to review medications- reported to be taking [...] hold at this time, 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 alternative alf- due to anticholinergic effects may further contribute [...] eat much breakfast [facility] patient with anxiety, medication review as above, patient follows with an in house psych rn Allergies Allergen Reactions Aspirin Butorphanol Hydromorphone Ibuprofen Oxycodone Prochlorperazine Salicylamide Sulfa Antibiotics Sumatriptan Current Facility-Administered Medications: acetaminophen (Tylenol) tablet 650 mg, 650 mg, Oral, q6h PRN, 650 mg at 09/24/24 0555 OR acetaminophen (Tylenol) suppository 650 mg, 650 mg, Rectal, q6h PRN, Lashon Sullivan MD busPIRone (Buspar) tablet 10 mg, 10 mg, Oral, TID, Shweta Carson APRN - MAIL HANDLER carBAMazepine (TEGretol) tablet 200 mg, 200 mg, [...] mg at (more content not included)... Normal [facility] Laboratory - Chemistry and C hemistry - challengeon 09-24-2024 25-hydroxyvitamin D3 [Mass/Vol] 40 ng/mL 20 - PINF ng/mL [facility] Magnesium [Mass/Vol] 1.5 mg/dL Low 1.6 - 2 .6 mg/dL [facility] MAGNESIUMon 09-24-2024 Magnesium [Mass/Vol] 1.5 mg/dL Low 1.6-2.6 [facility] Comment on above: Result Comment: ORDE R COMMENTS: Higher values can be expected in females during menses. Performed By: #### L AB17, [id number] ####Cardiovascular Radiologic Technologist: STAR DE LA ROSA ([id number])[facility] ([address] MYCOPLASMA PNEUMONIAE ANTIBO DY, IGMon 09-24-2024 MYCOPLASMA PNEUMO, IGM AB 0.29 U/L Normal <=0.76 [facility] Comment on above: Result Comment: INTE RPRETIVE [...] more than 12 months post-infection. Performed By: [facility] [address] [place] [address] Cabinet Abrasive Sandblaster: Troy Bateman MD, PhD CLIA Number: [id number] Performed By: #### L [id number] ####[facility] ([facility])[address] [place] [address] [facility] Magnesium [Mass/Vol]on 09-24 Interpretation and review of laboratory results Abnormal [facility] Higher values can be expected in females during menses. [facility] No Panel InformationOrdered By: Madelyn Augustin on 09-24-2024 Interpretation and review of laboratory results Abnormal [facility] mecA/C (MRSE/MRSL) Detected Abnormal Not Detected [facility] Staphylococcus epidermidis Detected Abnormal Not Detected [facility] Methodology: Multipl ex PCR The [employer] BCID panel can detect the following organisms: [...] NDM, OXA-48-like, VIM, and mcr-1. [facility] Nursing Noteon 09-24-2024 Nursing Note Wound Care consulted for Pressure Injury Prevention. Pt's Rakan score= 18 on 09/24 Pt's pressure points assessed. Pt's Heels, Buttocks/coccyx, Back, Elbows, Occiput and ears all intact. MASD noted to gluteal cleft. Prevention Measures in place, including: Parks sheet with pillows/wedges, Foam heel protectors (obtained and applied), Heels elevated off bed on pillows, Zinc/Moisture Barrier ointment, Waffle chair cushion (obtained for pt). Skin Care precaution order set in place. Dietitian consult N/A, nutrition subscore of 3. PT/OT consult in place. Will continue to follow pt. Please Voicera for any questions or concerns. Damari Wharton RN Normal [facility] Nursing Note Pt's blood work attempted x2 this morning. Pt refusing anymore attempts at this time. Normal [facility] RESPIRATORY CULTURE AND STAI Non 09-24-2024 RESPIRATORY CULTURE AND STAIN RESPIRATORY CULTURE Reference Few respiratory sena present. GRAM STAIN RESULT Reference Rare Epithelial cells per low power field Many Polymorphonuclear leukocytes per low power field No organisms seen [ S = SUSCEPTIBLE R = RESISTANT I = INTERMEDIATE S-DD = Susceptible-dose dependent NS = Non-susceptible NO = No Interpretation ] Normal [facility] Comment on above: Performed By: #### L [id number] ####Cardiovascular Radiologic Technologist: STAR DE LA ROSA ([id number])[facility] ([address] Respiratory pathogens DNA an d RNA panel KAMLA+non-probe (Nph)on 09-24-2024 Adenovirus Not detected Not Detected [facility] B. pertussis DNA KAMLA+probe Ql (Unsp spec) Not detected Not Detected [facility] Bordetella parapertussis Not detected Not Detected [facility] Chlamydia pneumoniae Not detected Not Detected [facility] Coronavirus 229E Not detected Not Detected [facility] Coronavirus HKU1 Not detected Not Detected [facility] Coronavirus NL63 Detected Abnormal Not Detected [facility] Coronavirus OC43 Not detected Not Detected [facility] FLUAV RNA KAMLA+non-probe Ql (Nph) Not detected Not Detected [facility] FLUBV RNA KAMLA+non-probe Ql (Nph) Not detected Not Detected [facility] Human Metapneumovirus Not detected Not Detected [facility] Human Rhinovirus/Enterovirus Not detected Not Detected [facility] Interpretation and review of laboratory results Abnormal [facility] Mycoplasma pneumoniae Not detected Not Detected [facility] Parainfluenza 1 Not detected Not Detected [facility] Parainfluenza 2 Not detected Not Detected [facility] Parainfluenza 3 Not detected Not Detected [facility] Parainfluenza 4 Not detected Not Detected [facility] Respiratory Syncytial Virus Not detected Not Detected [facility] SARS-CoV-2 (COVID-19) RNA KAMLA+non-probe Ql (Nph) Not detected Not Detected [facility] [facility] Methodology: Multipl ex PCR [facility] VITAMIN D DEFICIENCY SCREENI NG (VIT D 25)on 09-24-2024 VIT D 25-OH, TOTAL 40 ng/mL Normal >20 [facility] Comment on above: Result Comment: ORDE R COMMENTS: Target concentration: 30 - 40 ng/mL; toxicity seen at concentrations >100 ng/mL Therapy is based on measurement of Total 25-OHD with the following classification levels: Less than 20 ng/mL: Indicative of Vit D deficiency 20-30 ng/mL: Suggests Vit D insufficiency Optimal: Greater than or equal to 30 ng/mL Test performed by [employer] Competitive Immunoassay, measuring Total Vitamin D, not individual fractions. Performed By: #### L AB21, [id number] ####Cardiovascular Radiologic Technologist: STAR DE LA ROSA ([phone])[facility] ([facility])[address] [place] [address] ABO and Rh group Confirm Nom (Bld)on 09-23-2024 ABO group Nom (Bld) O [facility] D Ag Ql (RBC) Positive [facility] BASIC METABOLIC PANELon 09-14 Anion gap [Moles/Vol] 7 mmol/L Normal 3-13 [facility] Comment on above: Performed By: #### L AB113, LAB46, LAB15, [id number], [id number] ####Cardiovascular Radiologic Technologist: STAR DE LA ROSA ([phone])[facility] ([facility])[address] [place] [address] Calcium [Mass/Vol] 8.6 mg/dL Low 8.8-10.0 [facility] Comment on above: Performed By: #### L AB113, LAB46, LAB15, [id number], [id number] ####Cardiovascular Radiologic Technologist: STAR DE LA ROSA ([phone])[facility] ([facility])[address] [place] [address] [place] Chloride [Moles/Vol] 98 mmol/L Normal 98-107 [facility] Comment on above: Performed By: #### L AB113, LAB46, LAB15, RSP179, [id number] ####Cardiovascular Radiologic Technologist: STAR DE LA ROSA ([phone])[facility] ([facility])[address] [place] [address] [place] CO2 [Moles/Vol] 28 mmol/L Normal 23-31 [facility] Comment on above: Performed By: #### L AB113, LAB46, LAB15, [id number], [id number] ####Cardiovascular Radiologic Technologist: STAR DE LA ROSA ([id number])[facility])[address] [place] [address] [place] Creatinine [Mass/Vol] 1.14 mg/dL High 0.57-1.11 [facility] Comment on above: Performed By: #### L AB113, LAB46, LAB15, WIS263, [id number] ####Cardiovascular Radiologic Technologist: STAR DE LA ROSA ([phone])[facility])[address] [place] [address] [place] GLOMERULAR FILTRATION RATE ML/MIN/1.73 SQ M.PREDICTED 50.3 mL/min/1.73m*2 Low >60.0 [facility] Comment on above: Result Comment: Calc ulation based on the Chronic Kidney Disease Epidemiology Collaboration (CKD-EPI) equation refit without adjustment for race Performed By: #### L AB113, LAB46, LAB15, [id number], [id number] ####Cardiovascular Radiologic Technologist: STAR DE LA ROSA ([phone])[facility])[address] [place] [address] Glucose [Mass/Vol] 148 mg/dL High 82-115 [facility] Comment on above: Performed By: #### L AB113, LAB46, LAB15, ICF038, [id number] ####Cardiovascular Radiologic Technologist: STAR DE LA ROSA ([id number])[facility])[address] [place] [address] Potassium [Moles/Vol] 3.9 mmol/L Normal 3.5-5.1 [facility] Comment on above: Result Comment: [facility] potassium values may be up to 0.5 mmol/L lower than serum values. Performed By: #### L AB113, LAB46, LAB15, [id number], [id number] ####Cardiovascular Radiologic Technologist: STAR DE LA ROSA ([phone])[facility] ([facility])[address] [place] [address] [place] Sodium [Moles/Vol] 133 mmol/L Low 136-145 [facility] Comment on above: Performed By: #### L AB113, LAB46, LAB15, ZGE413, [id number] ####Cardiovascular Radiologic Technologist: STAR DE LA ROSA ([phone])[facility])[address] [place] [address] [place] Urea nitrogen [Mass/Vol] 23 mg/dL Normal 9-23 [facility] Comment on above: Performed By: #### L AB113, LAB46, LAB15, QFO523, [id number] ####Cardiovascular Radiologic Technologist: STAR DE LA ROSA ([id number])[facility])[address] [place] [address] BLOOD CULTUREon 09-23-2024 Bacteria identified Cx Nom [...] Non-susceptible NO = No Interpretation ] Normal [facility] Comment on above: Performed By: #### L [id number], [id number] #### Cardiovascular Radiologic Technologist: STAR DE LA ROSA ([id number]) [facility]) [address] [place] [address] Performed By: #### L [id number], [id number] ####Cardiovascular Radiologic Technologist: STAR DE LA ROSA ([phone])[address] Bacteria identified Cx Nom (Bld) BLOOD CULTURE Reference No growth at 5 days ORDER COMMENTS: Blood Collection Site: Right Forearm [ S = SUSCEPTIBLE R = RESISTANT I = INTERMEDIATE S-DD = Susceptible-dose dependent NS = Non-susceptible NO = No Interpretation ] [facility] Comment on above: Performed By: #### L AB462 ####Cardiovascular Radiologic Technologist: STAR DE LA ROSA ([id number])[address] BLOOD CULTURE IDENTIFICATION - AEROBICon 09-23-2024 BLOOD CULTURE IDENTIFICATION - AEROBIC STAPHYLOCOCCUS EPIDERMIDIS, BLOOD (A) Reference Detected Not Detected MECA/C METHICILLIN RESISTANCE, BLOOD (A) Reference Detected Not Detected ORDER COMMENTS: (A) Methodology: Multiplex PCR The [employer] BCID panel can detect the following organisms: [...] IMP, KPC, NDM, OXA-48-like, VIM, and mcr-1. [facility] Comment on above: Performed By: #### L [id number], DHC576 #### Cardiovascular Radiologic Technologist: STAR DE LA ROSA ([id number]) [facility] ([facility]) [address] [place] [address] Performed By: #### L [id number], [id number] ####Cardiovascular Radiologic Technologist: STAR DE LA ROSA ([id number])[facility] ([facility])[address] [place] [address] BLOOD TYPE AND SCREEN GELon 09-23-2024 ABO GROUPING O [facility] Comment on above: Performed By: #### L AB276 ####Cardiovascular Radiologic Technologist: STAR DE LA ROSA ([phone])[facility] ([facility])[address] [place] [address] RH TYPE IN BLOOD Positive [facility] Comment on above: Performed By: #### L AB276 ####Cardiovascular Radiologic Technologist: STAR DE LA ROSA ([phone])[facility] ([facility])[address] [place] [address] Basic Metabolic Profile (BMP )on 09-23-2024 BUN Normal 7-18 [facility] Comment on above: Order Comment: 104-2 Result Comment: UTO X2 Performed By: #### L 501.7900, [id number] #### [facility] [address] [place], [address] BUN/CRE Normal 10-20 [facility] Comment on above: Order Comment: 104-2 Result Comment: UTO X2 Performed By: #### L 501.7900, [id number] #### [facility] [address] [place], [address] CA,Total Normal 8.5-10.1 [facility] Comment on above: Order Comment: -2 Result Comment: UTO X2 Performed By: #### L [id number], [id number] #### [facility] [address] [place], [address] CL Normal 98-107 [facility] Comment on above: Order Comment: -2 Result Comment: UTO X2 Performed By: #### L [id number], [id number] #### [facility] [address] [place], [address] CO2 Normal 21.0-32.0 [facility] Comment on above: Order Comment: -2 Result Comment: UTO X2 Performed By: #### L [id number], [id number] #### [facility] [address] [place], [address] CREAT,SERUM Normal 0.55-1.02 [facility] Comment on above: Order Comment: 104-2 Result Comment: UTO X2 Performed By: #### L 501.7900, [id number] #### [facility] [address] [place], [address] EST GFR Normal >60 [facility] Comment on above: Order Comment: -2 Result Comment: UTO X2 Performed By: #### L [id number], [id number] #### [facility] [address] [place], [address] EST GFR - AA Normal >60 [facility] Comment on above: Order Comment: 104-2 Result Comment: UTO X2 Performed By: #### L 501.7900, [id number] #### [facility] [address] [place], [address] GAP Normal 5-15 [facility] Comment on above: Order Comment: 104-2 Result Comment: UTO X2 Performed By: #### L 501.7900, [id number] #### [facility] [address] [place], [address] GLU Normal 74-106 [facility] Comment on above: Order Comment: 104-2 Result Comment: UTO X2 Performed By: #### L 501.7900, [id number] #### [facility] [address] [place], [address] Potassium Normal 3.5-5.1 [facility] Comment on above: Order Comment: 104-2 Result Comment: UTO X2 Performed By: #### L 501.7900, [id number] #### [facility] [address] [place], [address] Basic Metabolic Profile (BMP) Normal 136-145 [facility] Comment on above: Order Comment: 104-2 Result Comment: UTO X2 Performed By: #### L 501.7900, [id number] #### [facility] [address] [place], [address] Basic metabolic 1998 panelon 09-23-2024 Anion gap [Moles/Vol] 7 mmol/L 3 - 13 mmol/L [facility] Calcium [Mass/Vol] 8.6 mg/dL Low 8.8 - 10. 0 mg/dL [facility] [facility] Chloride [Moles/Vol] 98 mmol/L 98 - 10 7 mmol/L [facility] [facility] CO2 [Moles/Vol] 28 mmol/L 23 - 31 mmol/L [facility] Creatinine [Mass/Vol] 1.14 mg/dL High 0.57 - 1.11 mg/dL [facility] GFR/1.73 sq M.predicted (S/P/Bld) [Vol rate/Area] 50.3 mL/min Low - PINF [facility] Comment on above: Calculation based on the Chronic Kidney Disease Epidemiology Collaboration (CKD-EPI) equation refit without adjustment for race Glucose [Mass/Vol] 148 mg/dL High 82 - 115 mg/dL [facility] Potassium [Moles/Vol] 3.9 mmol/L 3.5 - 5.1 mmol/L [facility] Comment on above: Plasma potassium holland ues may be up to 0.5 mmol/L lower than serum values. Sodium [Moles/Vol] 133 mmol/L Low 136 - 145 mmol/L [facility] Urea nitrogen [Mass/Vol] 23 mg/dL 9 - 23 mg/dL [facility] Blood type and Crossmatch pa bita (Bld)on 09-23-2024 ABO group Nom (Bld) O [facility] Blood group antibody screen GEL Ql Negative [facility] D Ag Ql (RBC) Positive [facility] CBC W Auto Differential pane l (Bld)on 09-23-2024 Basophils (Bld) [#/Vol] 0.1 10*3/uL 0.0 - 0.2 10*3/uL [facility] Basophils/100 WBC (Bld) 0.4 % 0.0 - 2.0 % [facility] Eosinophils (Bld) [#/Vol] 0.1 10*3/uL 0.0 - 0.5 10*3/uL [facility] Eosinophils/100 WBC (Bld) 0.6 % 0.0 - 6.0 % [facility] Erythrocyte distribution width (RBC) [Ratio] 12.9 % 11.5 - 15.0 % [facility] Hematocrit (Bld) [Volume fraction] 35.5 % 35.0 - 47.0 % [facility] Hemoglobin (Bld) [Mass/Vol] 11.7 g/dL 11.7 - 16.0 g/dL [facility] Immature granulocytes (Bld) [#/Vol] 0.1 10*3/uL High NINF - 0.1 10*3/uL [facility] Immature granulocytes/100 WBC (Bld) 0.5 % 0.0 - 2.0 % [facility] Interpretation and review of laboratory results Abnormal [facility] Lymphocytes (Bld) [#/Vol] 0.7 10*3/uL Low 1.0 - 4.3 10*3/uL [facility] Lymphocytes/100 WBC (Bld) 6 % Low 15.0 - 45.0 % [facility] MCH (RBC) [Entitic mass] 30.8 pg 26.0 - 34.0 pg [facility] MCHC (RBC) [Mass/Vol] 33 % 30.5 - 36.0 % [facility] MCV (RBC) [Entitic vol] 93.4 fL 77.0 - 99.0 fL [facility] Monocytes (Bld) [#/Vol] 1.2 10*3/uL High 0.0 - 0.9 10*3/uL [facility] Monocytes/100 WBC (Bld) 10.3 % 5.0 - 13.0 % [facility] Neutrophils (Bld) [#/Vol] 9.5 10*3/uL High 1.8 - 7.5 10*3/uL [facility] Neutrophils/100 WBC (Bld) 82.2 % High 38.0 - 82.0 % [facility] Nucleated RBC/100 WBC (Bld) [Ratio] 0 % [facility] Platelet mean volume (Bld) [Entitic vol] 10.6 fL 9.0 - 12.7 fL [facility] Platelets (Bld) [#/Vol] 209 10*3/uL 140 - 440 10*3/uL [facility] RBC (Bld) [#/Vol] 3.8 10*6/uL 3.80 - 5.2 0 10*6/uL [facility] WBC (Bld) [#/Vol] 11.6 10*3/uL High 3.6 - 10.7 10*3/uL [facility] CBC WITH AUTO DIFFERENTIALon 09-23-2024 Basophils (Bld) [#/Vol] 0.1 10*3/uL Normal 0.0-0.2 [facility] Comment on above: Performed By: #### L [id number] ####Cardiovascular Radiologic Technologist: STAR DE LA ROSA ([phone])[facility] ([address] Basophils/100 WBC (Bld) 0.4 % Normal 0.0-2.0 [facility] Comment on above: Performed By: #### L [id number] ####Cardiovascular Radiologic Technologist: STAR DE LA ROSA ([id number])[facility])[address] [place] [address] Eosinophils (Bld) [#/Vol] 0.1 10*3/uL Normal 0.0-0.5 [facility] Comment on above: Performed By: #### L [id number] ####Cardiovascular Radiologic Technologist: STAR DE LA ROSA ([id number])[facility])[address] [place] [address] Eosinophils/100 WBC (Bld) 0.6 % Normal 0.0-6.0 [facility] Comment on above: Performed By: #### L [id number] ####Cardiovascular Radiologic Technologist: STAR DE LA ROSA ([id number])[facility])[address] [place] [address] Erythrocyte distribution width (RBC) [Ratio] 12.9 % Normal 11.5-15.0 [facility] Comment on above: Performed By: #### L [id number] ####Cardiovascular Radiologic Technologist: STAR DE LA ROSA ([id number])[facility])[address] [place] [address] Hematocrit (Bld) [Volume fraction] 35.5 % Normal 35.0-47.0 [facility] Comment on above: Performed By: #### L [id number] ####Cardiovascular Radiologic Technologist: STAR DE LA ROSA ([phone])[facility])[address] [place] [address] Hemoglobin (Bld) [Mass/Vol] 11.7 g/dL Normal 11.7-16.0 [facility] Comment on above: Performed By: #### L [id number] ####Cardiovascular Radiologic Technologist: STAR DE LA ROSA ([id number])[facility])[address] [place] [address] IMMATURE GRANS % 0.5 % Normal 0.0-2.0 [facility] Comment on above: Performed By: #### L [id number] ####Cardiovascular Radiologic Technologist: STAR DE LA ROSA ([phone])[address] IMMATURE GRANS ABSOLUTE 0.1 10*3/uL High <0.1 [facility] Comment on above: Performed By: #### L [id number] ####Cardiovascular Radiologic Technologist: STAR DE LA ROSA ([id number])[facility])[address] [place] [address] Lymphocytes (Bld) [#/Vol] 0.7 10*3/uL Low 1.0-4.3 [facility] Comment on above: Performed By: #### L [id number] ####Cardiovascular Radiologic Technologist: STAR DE LA ROSA ([id number])[address] Lymphocytes/100 WBC (Bld) 6.0 % Low 15.0-45.0 [facility] Comment on above: Performed By: #### L [id number] ####Cardiovascular Radiologic Technologist: STAR DE LA ROSA ([id number])[address] MCH (RBC) [Entitic mass] 30.8 pg Normal 26.0-34.0 [facility] Comment on above: Performed By: #### L [id number] ####Cardiovascular Radiologic Technologist: STAR DE LA ROSA ([id number])[address] MCHC 33.0 % Normal 30.5-36.0 [facility] Comment on above: Performed By: #### L [id number] ####Cardiovascular Radiologic Technologist: STAR DE LA ROSA ([id number])[address] MCV (RBC) [Entitic vol] 93.4 fL Normal 77.0-99.0 [facility] Comment on above: Performed By: #### L [id number] ####Cardiovascular Radiologic Technologist: STAR DE LA ROSA ([phone])[facility] [place] [address] Monocytes (Bld) [#/Vol] 1.2 10*3/uL High 0.0-0.9 [facility] Comment on above: Performed By: #### L [id number] ####Cardiovascular Radiologic Technologist: STAR DE LA ROSA ([id number])[facility] ([facility])[address] [place] [address] [place] Monocytes/100 WBC (Bld) 10.3 % Normal 5.0-13.0 [facility] Comment on above: Performed By: #### L [id number] ####Cardiovascular Radiologic Technologist: STAR DE LA ROSA ([phone])[facility] ([facility])[address] [place] [address] NEUTROPHILS ABSOLUTE 9.5 10*3/uL High 1.8-7.5 [facility] Comment on above: Performed By: #### L [id number] ####Cardiovascular Radiologic Technologist: STAR DE LA ROSA ([phone])[facility] ([facility])[address] [place] [address] Neutrophils/100 WBC (Bld) 82.2 % High 38.0-82.0 [facility] Comment on above: Performed By: #### L [id number] ####Cardiovascular Radiologic Technologist: STAR DE LA ROSA ([id number])[facility] ([facility])[address] [place] [address] NRBC 0.0 /100 WBCs Normal 0.0-2.0 [facility] Comment on above: Performed By: #### L [id number] ####Cardiovascular Radiologic Technologist: STAR DE LA ROSA ([id number])[facility] ([facility])[address] [place] [address] Platelet mean volume (Bld) [Entitic vol] 10.6 fL Normal 9.0-12.7 [facility] Comment on above: Performed By: #### L [id number] ####Cardiovascular Radiologic Technologist: STAR DE LA ROSA ([id number])[facility] ([facility])[address] [place] [address] [place] Platelets (Bld) [#/Vol] 209 10*3/uL Normal 140-440 [facility] Comment on above: Performed By: #### L [id number] ####Cardiovascular Radiologic Technologist: STAR DE LA ROSA ([id number])[facility] ([facility])[address] [place] [address] RBC (Bld) [#/Vol] 3.80 10*6/uL Normal 3.80-5.20 [facility] Comment on above: Performed By: #### L [id number] ####Cardiovascular Radiologic Technologist: STAR DE LA ROSA ([id number])[facility] ([facility])[address] [place] [address] WBC (Bld) [#/Vol] 11.6 10*3/uL High 3.6-10.7 [facility] Comment on above: Performed By: #### L [id number] ####Cardiovascular Radiologic Technologist: STAR DE LA ROSA ([id number])[facility] ([facility])[address] [place] [address] CBC-Complete Blood Cnt No Di ffon 09-23-2024 HCT Normal 37-47 [facility] Comment on above: Order Comment: 104-2 Result Comment: UTO X2 Performed By: #### L 501.7900, L501.9520 #### [facility] [address] [place], [address] HGB Normal 12.0-15.0 [facility] Comment on above: Order Comment: 104-2 Result Comment: UTO X2 Performed By: #### L 501.7900, [id number] #### [facility] [address] [place], [address] MCH Normal 27.0-32.0 [facility] Comment on above: Order Comment: 104-2 Result Comment: UTO X2 Performed By: #### L 501.7900, [id number] #### [facility] [address] [place], [address] MCHC Normal 32-36 [facility] Comment on above: Order Comment: 104-2 Result Comment: UTO X2 Performed By: #### L 501.7900, L501.20 #### [facility] [address] [place], [address] MCV Normal 81-99 [facility] Comment on above: Order Comment: 104-2 Result Comment: UTO X2 Performed By: #### L 501.7900, [id number] #### [facility] [address] [place], [address] PLT Normal 150-450 [facility] Comment on above: Order Comment: 104-2 Result Comment: UTO X2 Performed By: #### L 501.7900, [id number] #### [facility] [address] [place], [address] RBC Normal 4.2-5.4 [facility] Comment on above: Order Comment: 104-2 Result Comment: UTO X2 Performed By: #### L 501.7900, L501.20 #### [facility] [address] [place], [address] RDW CV Normal 11.6-14.6 [facility] Comment on above: Order Comment: 104-2 Result Comment: UTO X2 Performed By: #### L 501.7900, L501.20 #### [facility] [address] [place], [address] RDW SD Normal 35.1-43.9 [facility] Comment on above: Order Comment: 104-2 Result Comment: UTO X2 Performed By: #### L 501.7900, [id number] #### [facility] [address] [place], [address] WBC Normal 4.4-11.0 [facility] Comment on above: Order Comment: 104-2 Result Comment: UTO X2 Performed By: #### L 501.7900, [id number] #### [facility] [place], [address] CT CERVICAL SPINE WO IV CONT Wilmer 09-23-2024 CT CERVICAL SPINE WO IV CONTRAST [facility] 1950 [id number] Exam Date/Time: 09/23/2024 11:10 Procedure: CT CERVICAL [...] MD Electronically Signed Date/Time: 09/23/2024 11:31 AM [facility] CT CHEST WO IV CONTRASTon CT CHEST WO IV CONTRAST Patient Name: IVAN WHEAT : 1950 [facility]#: [id number] Exam Date/Time: 09/23/2024 11:10 Procedure: CT CHEST [...] Electronically Signed Date/Time: 09/23/2024 11:31 AM EST Normal [facility] CT Cervical spine WO rhiannon batista 09-23-2024 Patient Name: IVAN WHEAT : 1950 Exam Date/Time: 09/23/2024 11:10 Procedure: CT CERVICAL [...] siphons and distal vertebral arteries is noted. [facility] Olya Kang MD - 09/23/2024 [facility]: [facility] 1950 [id number] Exam Date/Time: 09/23/2024 11:10 Procedure: CT CERVICAL [...] Electronically Signed Date/Time: 09/23/2024 11:31 AM [address] [facility] [address] Chest WO contraston 09-23 Patient Name: IVAN WHEAT : 1950 Exam Date/Time: 09/23/2024 11:10 Procedure: CT CHEST [...] siphons and distal vertebral arteries is noted. [facility] Olya Kang MD - 09/23/2024 Patient [facility]: [facility] : 1950 [id number] Exam Date/Time: 09/23/2024 11:10 Procedure: CT CHEST [...] Electronically Signed Date/Time: 09/23/2024 11:[address] [facility] [address] HEAD WO IV CONTRASTon CT HEAD WO IV CONTRAST Patient Name: IVAN WHEAT : 1950 [facility]#: [id number] Exam Date/Time: 09/23/2024 11:10 Procedure: CT HEAD [...] Electronically Signed Date/Time: 09/23/2024 11:31 AM EST Normal [facility] CT Head WO contraston 2024 Patient Name: IVAN WHEAT : 1950 Exam Date/Time: 09/23/2024 11:10 Procedure: CT HEAD [...] siphons and distal vertebral arteries is noted. [facility] Olya Kang MD - 09/23/2024 Patient Name: IVAN WHEAT : 1950 [facility]#: [id number] Exam Date/Time: 09/23/2024 11:10 Procedure: CT HEAD [...] MD Electronically Signed Date/Time: 09/23/2024 11:31 AM [facility] System ED Nursing Noteon 09-23-2024 ED Nursing Note Gave report to SHA Chan [facility] ED Provider Noteon ED Provider Note Emergency Department Encounter [facility] EMERGENCY DEPT Patient: Andre Blanca : 1950 [...] for clarification.) Muna Edmonds MD Acute Care [facility] Muna Edmonds MD 09/23/24 1507 Muna Edmonds MD 09/23/24 1507 [facility] ED Provider Note EMERGENCY DEPARTMENT ENCOUNTER Pt [...] Response: Confused Best Motor Response: Follows commands Bernice Coma Scale Score: 14 PHYSICAL EXAM ED Triage Vitals Temp Heart Rate Resp BP 09/23/24 1046 09/23/24 1045 09/23/24 1053 09/23/24 1047 37 ?C (98.6 ?F) 68 25 (!) 85/46 SpO2 Temp [facility] Heart Rate Source Patient Position 09/23/24 1045 [...] CT or (more content not included)... Normal [facility] ETHANOLon 09-23-2024 ETHANOL IN SER/PLAS <10 Normal <10 [facility] Comment on above: Result Comment: KAMILLA Gill COMMENTS: HEALTH AND SAFETY CONSULTANT depression is seen >100 mg/dL. NOTE: This result is for medical treatment only. Analysis performed using non-forensic procedures. Performed By: #### L [id number], LAB46, LAB15, [id number], [id number] ####Cardiovascular Radiologic Technologist: STAR DE LA ROSA ([id number])[address] Ethanol (Bld) [Mass/Vol]on 0 09-23-2024 Ethanol [Mass/Vol] mg/dL NINF - 10 mg/dL [facility] HEALTH AND SAFETY CONSULTANT depression is se en >100 mg/dL. NOTE: This result is for medical treatment only. Analysis performed using non-forensic procedures. [facility] LACTIC ACID WITH REFLEXon Lactate [Moles/Vol] 1.3 mmol/L Normal 0.5-2.2 [facility] Comment on above: Performed By: #### L [id number] ####Cardiovascular Radiologic Technologist: STAR DE LA ROSA ([id number])[facility] ([facility])[address] [place] [address] LEGIONELLA AND STREPTOCOCCUS URINE ANTIGENon 09-23-2024 LEGIONELLA AND STREPTOCOCCUS URINE ANTIGEN LEGIONELLA PNEUMOPHILA URINE ANTIGEN Reference Not Detected Not Detected STREPTOCOCCUS PNEUMONIAE URINE ANTIGEN Reference Not Detected Not Detected ORDER COMMENTS: Methodology: Lateral flow enzyme immunoassay This assay is approved for detection of antigens to Streptococcus pneumoniae and Legionella pneumophila serogroup 1; however, other L. pneumophila serogroups may also be detected. Normal [facility] System [facility] Comment on above: Performed By: #### L [id number] ####Cardiovascular Radiologic Technologist: STAR DE LA ROSA ([id number])[facility] ([facility])[address] [place] [address] Laboratory - Chemistry and C hemistry - challengeon 09-23-2024 Procalcitonin [Mass/Vol] 0.18 ng/mL High NINF - 0.07 ng/mL [facility] Lactate [Moles/Vol] 1.3 mmol/L 0.5 - 2. 2 mmol/L [facility] Magnesium [Mass/Vol] 1.5 mg/dL Low 1.6 - 2 .6 mg/dL [facility] Laboratory - Coagulationon 0 09-23-2024 aPTT Coag (PPP) [Time] 29.8 s 20.0 - 30.5 s [facility] INR Coag (PPP) [Relative time] 1.2 {INR} High 0.9 - 1.1 [facility] Comment on above: Recommended Anticoag ulant Therapy: [...] 12.9 s High 9.0 - 12.[address] [facility] Laboratory - Microbiology an d Antimicrobial susceptibilityon 09-23-2024 FLUAV RNA KAMLA+probe Ql (Resp) Not detected Not Detected [facility] FLUBV RNA KAMLA+probe Ql (Resp) Not detected Not Detected [facility] RSV RNA KAMLA+probe Ql (Resp) Not detected Not Detected [facility] SARS-CoV-2 (COVID-19) RNA KAMLA+probe Ql (Resp) Not detected Not Detected [facility] [employer] MAGNESIUMon 09-23-2024 Magnesium [Mass/Vol] 1.5 mg/dL Low 1.6-2.6 [facility] Comment on above: Result Comment: MARTHAE R COMMENTS: Higher values can be expected in females during menses. Performed By: #### L AB113, LAB46, LAB15, [id number], [id number] ####Cardiovascular Radiologic Technologist: STAR DE LA ROSA ([id number])[facility] ([facility])[address] [place] [address] Magnesium [Mass/Vol]on 09-23 Higher values can be expected in females during menses. [facility] No Panel InformationOrdered By: Nidia Peters on 09-23-2024 Interpretation and review of laboratory results Normal [facility] Legionella pneumophila Ag Not detected Not Detected [facility] Streptococcus pneumoniae Ag Not detected Not Detected [facility] Methodology: Lateral flow enzyme immunoassay This assay is approved for detection of antigens to Streptococcus pneumoniae and Legionella pneumophila serogroup 1; however, other L. pneumophila serogroups may also be detected. [facility] No Panel Informationon 09-23 Impression: Likely chronic [...] MD Electronically Signed Date/Time: 09/23/2024 11:31 AM [facility] Interpretation and review of laboratory results Normal [facility] Interpretation and review of laboratory results Abnormal [facility] Interpretation and review of laboratory results Abnormal [facility] Radiology Study observation (narrative) [facility] No Panel InformationOrdered By: Olya Kang on 09-23-2024 [facility] Work Phone: Nursing Noteon 09-23-2024 Nursing Note Pt took 3 yellow colored rings off. This RN found them on the floor next to her bed. Placed in specimen cup with pt label on pt's bedside table. Normal [facility] PHOSPHORUSon 09-23-2024 Phosphate [Mass/Vol] 2.5 mg/dL Normal 2.3-4.7 [facility] Comment on above: Performed By: #### L AB113, LAB46, LAB15, [id number], [id number] ####Cardiovascular Radiologic Technologist: STAR DE LA ROSA ([id number])[address] PROCALCITONIN TESTon 025 PROCALCITONIN 0.18 ng/mL High <0.07 [facility] Comment on above: Result Comment: ORDE R COMMENTS: PCT <0.50 = Low risk of severe sepsis and/or septic shock. PCT >2.00 = High risk of severe sepsis and/or septic shock. Performed By: #### L AB113, LAB46, LAB15, [id number], [id number] ####Cardiovascular Radiologic Technologist: STAR DE LA ROSA ([id number])[facility])[address] [place] [address] PROTIME AND APTTon aPTT Coag (Bld) [Time] 29.8 s Normal 20.0-30.5 [facility] Comment on above: Performed By: #### L [id number] ####Cardiovascular Radiologic Technologist: STAR DE LA ROSA ([id number])[facility] ([facility])[address] [place] [address] INR Coag (PPP) [Relative time] 1.2 {INR} High 0.9-1.1 [facility] Comment on above: Result Comment: Que [...] prevent Myocardial Infarction Performed By: #### L [id number] ####Cardiovascular Radiologic Technologist: STAR DE LA ROSA ([id number])[facility] ([facility])[address] [place] [address] PT Coag (PPP) [Time] 12.9 s High 9.0-12.0 [facility] Comment on above: Performed By: #### L [id number] ####Cardiovascular Radiologic Technologist: STAR DE LA ROSA ([id number])[facility] ([facility])[address] [place] [address] Phosphate [Moles/Vol]on 09-14 Phosphate [Mass/Vol] 2.5 mg/dL 2.3 - 4 .7 mg/dL [facility] Procalcitonin [Mass/Vol]on 09-23-2024 Interpretation and review of laboratory results Abnormal [facility] PCT <0.50 = Low risk of severe sepsis and/or septic shock. PCT >2.00 = High risk of severe sepsis and/or septic shock. [facility] RESPIRATORY PATHOGENS PANEL BY PCRon 09-23-2024 RESPIRATORY [...] Detected ORDER COMMENTS: Methodology: Multiplex PCR Normal [facility] Comment on above: Performed By: #### L [id number], [id number] ####Cardiovascular Radiologic Technologist: STAR DE LA ROSA ([id number])[address] SARS-COV-2, FLU A/B, AND RSV COMBOon 09-23-2024 SARS-CoV-2 (COVID-19) RNA KAMLA+probe Ql (Unsp spec) SARS-COV-2 Reference Not Detected Not Detected RESPIRATORY SYNCYTIAL VIRUS Reference Not Detected Not Detected INFLUENZA A (CEPHEID) Reference Not Detected Not Detected INFLUENZA B (CEPHEID) Reference Not Detected Not Detected ORDER COMMENTS: Methodology: real-time, RT-PCR [facility] Comment on above: Performed By: #### L [id number], [id number] ####Cardiovascular Radiologic Technologist: STAR DE LA ROSA ([id number])[address] SARS-CoV-2, Flu A/B, and RSV Comboon 09-23-2024 Interpretation and review of laboratory results Normal [facility] Methodology: real-time, RT-PCR [facility] XR Chest Single viewon 09-23 Coarsening of the interstitial lung markings is likely chronic. Blunting of the right costophrenic angle may represent atelectasis, infiltrate, and/or pleural effusion. Follow-up to clearing is recommended. Report Dictated on Electronically Signed By: Troy Rubin MD Electronically Signed Date/Time: 09/23/2024 11:11 AM EST [facility] Patient Name: IVAN WHEAT : 1950 [...] spine. Left shoulder arthroplasty is incompletely visualized. [facility] Troy Rubin MD - 09/23/2024 Patient Name: [...] MD Electronically Signed Date/Time: 09/23/2024 11:11 AM [facility] Radiology Study observation (narrative) [facility] XR Chest Single viewOrdered By: Troy Rubin on 09-23-2024 [facility] XR Pelvis 1 or 2 Viewson 1. No acute fracture or dislocation. 2. Osteitis pubis. Report Dictated on Electronically Signed By: Praneeth Roberts MD Electronically Signed Date/Time: 09/23/2024 11:24 AM [facility] [employer] SYSTEM Patient Name: IVAN WHEAT : 1950 [...] normal limits. No significant soft tissue abnormality. [facility] Nikolas Roberts MD - 09/23/2024 Patient [...] Electronically Signed Date/Time: 09/23/2024 11:24 AM EST [facility] Radiology Study observation (narrative) [facility] XR Pelvis 1 or 2 ViewsOrdere d By: Nikolas Roberts on 09-23-2024 [employer] Work Phone: [phone] DOrdered By: Jarod Izquierdo on 07-29-2024 Vitamin D 25-Hydroxy 34.2 ng/mL [facility] Comment on above: Vitamin D 25(OH) Sta tus Range Deficiency <20 ng/mL (50nmol/L) Insufficiency 20 - 30 ng/mL (50 - 75 nmol/L) Sufficiency 30 - 100 ng/mL (75 - 250 nmol/L) Toxicity >100 ng/mL (>250 nmol/L) Vitamin D,25 Hydroxyon 07-29 Vitamin D 25-OH 34.2 ng/mL Normal [facility] Comment on above: Order Comment: 104-2 Result Comment: Elise min D 25(OH) Status Range Deficiency <20 ng/mL (50nmol/L) Insufficiency 20 - 30 ng/mL (50 - 75 nmol/L) Sufficiency 30 - 100 ng/mL (75 - 250 nmol/L) Toxicity >100 ng/mL (>250 nmol/L) Performed By: #### L 501.7900, [id number] #### [facility] [address] [place], [address] Automated blood erythrocyte countOrdered By: Kianna Izquierdo on 07-08-2024 RBC (Bld) [#/Vol] 4.36 10*6/uL Normal 4.2-5.4 [facility] Comment on above: Order Comment: 408-1 Performed By: #### L 500.2500, L100.0500 #### [facility] [address] [place], [address] Automated blood hematocrit ( percentage)Ordered By: Kianna Izquierdo on 07-08-2024 Hematocrit (Bld) [Volume fraction] 41.4 % Normal 37-47 [facility] Comment on above: Order Comment: 408-1 Performed By: #### L 500.2500, L100.0500 #### [facility] [address] [place], [address] Basic Metabolic Profile (BMP )on 07-08-2024 BUN/CRE 14.0 RATIO Normal 10-20 [facility] Comment on above: Order Comment: 408-1 Performed By: #### L 500.2500, L100.0500 #### [facility] [address] [place], [address] CA,Total 8.6 mg/dL Normal 8.5-10.1 [facility] Comment on above: Order Comment: 408-1 Performed By: #### L 500.2500, L100.0500 #### [facility] [address] [place], [address] EST GFR - AA 92 mL/min Normal >60 [facility] Comment on above: Order Comment: 408-1 Result Comment: Afri can Uruguayan GFR Calc Performed By: #### L 500.2500, L100.0500 #### [facility] [address] [place], [address] GAP 3 Low 5-15 [facility] Comment on above: Order Comment: 408-1 Performed By: #### L 500.2500, L100.0500 #### [facility] [address] [place], [address] GFR/1.73 sq M.predicted among non-blacks MDRD (S/P/Bld) [Vol rate/Area] 76 mL/min/{1.73_m2} Normal >60 [facility] Comment on above: Order Comment: Result Comment: Non- GFR Calc Performed By: #### L 500.2500, L100.0500 #### [facility] [address] [place], [address] Blood urea nitrogen (BUN)/cr eatinine ratioOrdered By: Kianna Izquierdo on 07-08-2024 Urea nitrogen/Creatinine [Mass ratio] 14.0 mg/mg 10- [facility] CBC-Complete Blood Cnt No Di ffon 07-08-2024 RDW SD 46.4 fl High 35.1-43.9 [facility] Comment on above: Order Comment: Performed By: #### L 500.2500, L100.0500 #### [facility] [address] [place], [address] Carbon dioxide measurementOr dered By: Kianna Izquierdo on 07-08-2024 CO2 [Moles/Vol] 28.0 mmol/L Normal 21.0-32.0 [facility] Comment on above: Order Comment: Performed By: #### L 500.2500, L100.0500 #### [facility] [address] [place], [address] Chloride measurementOrdered By: Kianna Izquierdo on 07-08-2024 Chloride [Moles/Vol] 108 mmol/L High 98-107 [facility] Comment on above: Order Comment: Performed By: #### L 500.2500, L100.0500 #### [facility] [address] [place], [address] Erythrocyte distribution wid th ratioOrdered By: Kianna Izquierdo on 07-08-2024 Erythrocyte distribution width (RBC) [Ratio] 13.2 % Normal 11.6-14.6 [facility] Comment on above: Order Comment: 408-1 Performed By: #### L 500.2500, L100.0500 #### [facility] [address] [place], [address] Erythrocyte distribution wid th standard deviationOrdered By: Kianna Izquierdo on 07-08-2024 Erythrocyte distribution width (RBC) [Entitic vol] 46.4 fL High 35.1-43.9 [facility] Estimated glomerular filtrat ion rate (GFR) AmericanOrdered By: Kianna Izquierdo on 07-08-2024 Estimated GFR (MDRD) Amer 92 mL/min >60 [facility] Comment on above: GFR Calc Glomerular filtration rate ( GFR) estimationOrdered By: Kianna Izquierdo on 07-08-2024 Estimated GFR (MDRD) Non-Af Amer 76 mL/min >60 [facility] Comment on above: Non- GFR Calc Glucose measurementOrdered B y: Kianna Izquierdo on 07-08-2024 Glucose [Mass/Vol] 92 mg/dL Normal 74-106 [facility] Comment on above: Order Comment: - Performed By: #### L 500.2500, L100.0500 #### [facility] [address] [place], [address] Hemoglobin measurementOrdere d By: Kianna Izquierdo on 07-08-2024 Hemoglobin (Bld) [Mass/Vol] 13.6 g/dL Normal 12.0-15.0 [facility] Comment on above: Order Comment: 408- Performed By: #### L 500.2500, L100.0500 #### [facility] [address] [place], [address] MCV (mean corpuscular volume ) determinationOrdered By: Kianna Izquierdo on 07-08-2024 MCV (RBC) [Entitic vol] 95.0 fL Normal 81-99 [facility] Comment on above: Order Comment: 408-1 Performed By: #### L 500.2500, L100.0500 #### [facility] [address] [place], [address] Mean corpuscular hemoglobin (MCH) determinationOrdered By: Kianna Izquierdo on 07-08-2024 MCH (RBC) [Entitic mass] 31.2 pg Normal 27.0-32.0 [facility] Comment on above: Order Comment: Performed By: #### L 500.2500, L100.0500 #### [facility] [address] [place], [address] Mean corpuscular hemoglobin concentration (MCHC) determinationOrdered By: Kianna Izquierdo on 07-08-2024 MCHC (RBC) [Mass/Vol] 32.9 g/dL Normal 32-36 [facility] Comment on above: Order Comment: Performed By: #### L 500.2500, L100.0500 #### [facility] [address] [place], [address] Mean platelet volume determi nationOrdered By: Kianna Izquierdo on 07-08-2024 Platelet mean volume (Bld) [Entitic vol] 10.3 fL Normal 6.2-12.0 [facility] Comment on above: Order Comment: Performed By: #### L 500.2500, L100.0500 #### [facility] [address] [place], [address] Platelet countOrdered By: Doc Deras on 07-08-2024 Platelets (Bld) [#/Vol] 196 10*3/uL Normal 150-450 [facility] Comment on above: Order Comment: Performed By: #### L 500.2500, L100.0500 #### [facility] [address] [place], [address] Potassium measurementOrdered By: Kianna Izquierdo on 07-08-2024 Potassium [Moles/Vol] 4.1 mmol/L Normal 3.5-5.1 [facility] Comment on above: Slight Hemolysis, Re sult may be falsely increased. Order Comment: Result Comment: Slig ht Hemolysis, Result may be falsely increased. Performed By: #### L 500.2500, L100.0500 #### [facility] [address] [place], [address] Serum anion gap measurementO rdered By: Kianna Izquierdo on 07-08-2024 Anion gap [Moles/Vol] 3 mmol/L Low 5-15 [facility] Serum or plasma calcium carlie urement (mass/volume)Ordered By: Kianna Izquierdo on 07-08-2024 Calcium [Mass/Vol] 8.6 mg/dL 8.5-10.1 [facility] Serum or plasma creatinine m easurement (mass/volume)Ordered By: Kianna Izquierdo on 07-08-2024 Creatinine [Mass/Vol] 0.79 mg/dL Normal 0.55-1.02 [facility] Comment on above: The validity of the calculated GFR & GFRAA in patients over 70 years has not been determined. Clinical correlation is essential. Order Comment: 408- Result Comment: The validity of the calculated GFR GFRAA in patients over 70 years has not been determined. Clinical correlation is essential. Performed By: #### L 500.2500, L100.0500 #### [facility] [address] [place], [address] Serum or plasma urea nitroge n measurement (mass/volume)Ordered By: Kianna Izquierdo on 07-08-2024 Urea nitrogen [Mass/Vol] 11 mg/dL Normal 7-18 [facility] Comment on above: Order Comment: 408- Performed By: #### L 500.2500, L100.0500 #### [facility] [address] [place], [address] Sodium levelOrdered By: Manpreet Izquierdo on 07-08-2024 Sodium [Moles/Vol] 139 mmol/L Normal 136-145 [facility] Comment on above: Order Comment: 408- Performed By: #### L 500.2500, L100.0500 #### [facility] [address] [place], [place], [address] White blood cell (WBC) count Ordered By: Kianna Izquierdo on 07-08-2024 WBC (Bld) [#/Vol] 9.1 10*3/uL Normal 4.4-11.0 [facility] Comment on above: Order Comment: 408-1 Performed By: #### L 500.2500, L100.0500 #### [facility] [address] [place], [place], [address] MR Chest WO contraston 06-18 Moderate right hip osteoarthritis. The anterior superior labrum of the right hip also appears torn. No avascular necrosis. Left hip hemiarthroplasty with associated susceptibility artifact. Report Dictated on Electronically Signed By: Olya Kang MD Electronically Signed Date/Time: 06/18/2024 3:25 PM [facility] [employer] SYSTEM Patient Name: ANDRE BLANCA : 1950 [...] unremarkable. The pelvic contents are grossly unremarkable. [facility] Issue Olya Kang MD - 06/18/2024 [facility] Name: [facility] 1950 [id number] Exam Date/Time: 06/18/2024 11:01 Procedure: MR HIP [...] Electronically Signed Date/Time: 06/18/2024 3:25 PM EST [facility] Radiology Study observation (narrative) [facility] [employer] MR Chest WO contrastOrdered By: Olya Kang on 06-18-2024 [facility] [employer] Work Phone: Progress Noteon 06-18-2024 Progress Note Ok to have Andre come back to discuss next steps with right hip, will discuss MRI. Normal [facility] Basophil percentageOrdered B y: Kianna Izquierdo on 10-24-2023 Bilirubin [Mass/Vol] 0.20 mg/dL 0.20-1.00 [facility] Comment on above: For patients on eltr ombopag therapy, use of Dimension [place] TBIL is not recommended. Chloride [Moles/Vol] 106 mmol/L 98-107 [facility] Cholesterol [Mass/Vol] 174 mg/dL <200 [facility] Comment on above: <200 mg/dL Desirable 200-240 mg/dL Borderline >240 mg/dL High Risk Glucose [Mass/Vol] 89 mg/dL 74-106 [facility] Hemoglobin (Bld) [Mass/Vol] 12.8 g/dL 12.0-15.0 [facility] Potassium [Moles/Vol] 4.5 mmol/L 3.5-5.1 [facility] Protein [Mass/Vol] 7.2 g/dL 6.4-8.2 [facility] Sodium [Moles/Vol] 140 mmol/L 136-145 [facility] Triglyceride [Mass/Vol] 348 mg/dL <199 [facility] Comment on above: The drugs N-Acetylcy steine and Metamizole may falsely depress this assay.Serum Triglycerides Reference Interval Normal <150 mg/dL Borderline high 150 - 199 mg/dL High 200 - 499 mg/dL Very High > or = 500 mg/dL WBC (Bld) [#/Vol] 8.2 10*3/uL 4.4-11.0 [facility] Determination of erythrocyte mean corpuscular volume (MCV)Ordered By: Kianna Izquierdo on 10-24-2023 MCV (RBC) [Entitic vol] 93.1 fL 81-99 [facility] Erythrocyte distribution wid th ratioOrdered By: Kianna Izquierdo on 10-24-2023 Erythrocyte distribution width (RBC) [Ratio] 12.9 % 11.6-14.6 [facility] Erythrocyte distribution wid th standard deviationOrdered By: Kianna Izquierdo on 10-24-2023 Erythrocyte distribution width (RBC) [Entitic vol] 44.2 fL 35.1-43.9 [facility] Hematocrit Auto (Bld) [Volum e fraction]Ordered By: Kianna Izquierdo on 10-24-2023 Hematocrit (Bld) [Volume fraction] 40.2 % 37-47 [facility] - Chemistry and C hemistry - challengeOrdered By: Kianna Izquierdo on 10-24-2023 Albumin/Globulin [Mass ratio] 0.8 {ratio} 0.9-2.4 [facility] ALP [Catalytic activity/Vol] 142 U/L 45-117 [facility] ALT [Catalytic activity/Vol] 19 U/L 13-56 [facility] Cholesterol in HDL [Mass/Vol] 38 mg/dL >40 [facility] Comment on above: The drugs N-Acetylcy steine and Metamizole may falsely depress this assay. Reference Range HDL <40 mg/dL Low HDL Cholesterol HDL >or= 60 mg/dL High HDL Cholesterol Cholesterol in LDL [Mass/Vol] 66 mg/dL 0-130 [facility] CO2 [Moles/Vol] 33.0 mmol/L 21.0-32.0 [facility] Globulin (S) [Mass/Vol] 4.1 g/dL 2.2-4.2 [facility] Urea nitrogen/Creatinine [Mass ratio] 12.7 mg/mg 10-20 [facility] - Hematology and Cell countsOrdered By: Kianna Izquierdo on 10-24-2023 MCH (RBC) [Entitic mass] 29.6 pg 27.0-32.0 [facility] MCHC (RBC) [Mass/Vol] 31.8 g/dL 32-36 [facility] Platelet mean volume (Bld) [Entitic vol] 10.2 fL 6.2-12.0 [facility] Platelets (Bld) [#/Vol] 269 10*3/uL 150-450 [facility] No Panel InformationOrdered By: Kianna Izquierdo on 10-24-2023 Estimated GFR (MDRD) Amer 92 mL/min >60 [facility] Comment on above: GFR Calc Estimated GFR (MDRD) Non-Af Amer 76 mL/min >60 [facility] Comment on above: Non- GFR Calc VLDL Cholesterol 70 mg/dL 5-40 [facility] RBC Auto (Bld) [#/Vol]Ordere d By: Kianna Izquierdo on 10-24-2023 RBC (Bld) [#/Vol] 4.32 10*6/uL 4.2-5.4 [facility] [facility] Serum or plasma calcium carlie urement (mass/volume)Ordered By: Kianna Izquierdo on 10-24-2023 Calcium [Mass/Vol] 9.1 mg/dL 8.5-10.1 [facility] Serum or plasma creatinine m easurement (mass/volume)Ordered By: Kianna Izquierdo on 10-24-2023 Creatinine [Mass/Vol] 0.79 mg/dL 0.55-1.02 [facility] Comment on above: The validity of the calculated GFR & GFRAA in patients over 70 years has not been determined. Clinical correlation is essential. Serum or plasma urea nitroge n measurement (mass/volume)Ordered By: Kianna Izquierdo on 10-24-2023 Urea nitrogen [Mass/Vol] 10 mg/dL 7-18 [facility] Thin prep Papanicolaou smear with manual screeningOrdered By: Kianna Izquierdo on 10-24-2023 Thin prep Papanicolaou smear with manual screening 3.1 g/dL 3.2-5.0 [facility] Thin prep Papanicolaou smear with manual screening 23 U/L 15-37 [facility] Thin prep Papanicolaou smear with manual screening 1 5-15 [facility] No Panel InformationOrdered By: Kianna Izquierdo on 08-10-2023 Carbamazepine (Tegretol) Level 11.1 ug/mL 4.0-12.0 [facility] No Panel InformationOrdered By: Kianna Izquierdo on 07-31-2023 Vitamin D 25-Hydroxy 52.8 ng/mL [facility] Comment on above: Vitamin D 25(OH) Sta tus Range Deficiency <20 ng/mL (50nmol/L) Insufficiency 20 - 30 ng/mL (50 - 75 nmol/L) Sufficiency 30 - 100 ng/mL (75 - 250 nmol/L) Toxicity >100 ng/mL (>250 nmol/L) Basophil percentageOrdered B y: Kianna Izquierdo on 06-26-2023 Basophil percentage 10-25 SEEN /hpf 0-5 [facility] Bilirubin Test strip Ql (U)O rdered By: Kianna Izquierdo on 06-26-2023 Bilirubin Ql (U) Negative Negative [facility] Culture, urineOrdered By: Doc Deras on 06-26-2023 Bacteria identified Cx Nom (U) Escherichia coli [facility] Ketones Test strip Ql (U)Ord ered By: Kianna Izquierdo on 06-26-2023 Ketones Ql (U) Negative Negative [facility] Mucus LM Ql (Urine sed)Order ed By: Kianna Izquierdo on 06-26-2023 Mucus Ql (Urine sed) 0 SEEN /hpf [facility] Nitrite Test strip Ql (U)Ord ered By: Kianna Izquierdo on 06-26-2023 Nitrite Ql (U) Negative Negative [facility] Protein Test strip Ql (U)Ord ered By: Kianna Izquierdo on 06-26-2023 Protein Ql (U) 15 mg/dl Negative [facility] Squamous epithelial cells de tection in urine sediment by light microscopyOrdered By: Kianna Izquierdo on 06-26-2023 Epithelial cells.squamous LM Ql (Urine sed) 0 SEEN /hpf 5-10 [facility] Urine blood detectionOrdered By: Kianna Izquierdo on 06-26-2023 RBC Ql (U) Negative Negative [facility] RBC Ql (U) 0 SEEN /hpf 0-5 [facility] Urine clarityOrdered By: Apple Izquierdo on 06-26-2023 Clarity (U) Sl. Cloudy Clear [facility] Urine color determinationOrd ered By: Kianna Izquierdo on 06-26-2023 Color (U) Yellow Yellow [facility] Urine glucose detectionOrder ed By: Kianna Izquierdo on 06-26-2023 Glucose Ql (U) Normal mg/dl Normal [facility] Urine leukocyte esterase det ection by dipstickOrdered By: Kianna Izquierdo on 06-26-2023 Leukocyte esterase Test strip Ql (U) 100 /ul Negative [facility] Urine pHOrdered By: Kianna reynolds on 06-26-2023 pH (U) 5.0 [pH] 5.0 - 8.0 [facility] Urine sediment bacteria coun t by microscopy (number/high power field)Ordered By: Kianna Izquierdo on 06-26-2023 Bacteria LM.HPF (Urine sed) [#/Area] 2 /[HPF] None Seen [facility] Urine specific gravity measu rementOrdered By: Kianna Izquierdo on 06-26-2023 Specific gravity (U) [Rel density] 1.015 1.002-1.030 [facility] Urobilinogen Auto test strip Ql (U)Ordered By: Kianna Izquierdo on 06-26-2023 Urobilinogen Ql (U) Normal mg/dl Normal [facility] Bilirubin Test strip Ql (U)O rdered By: Kianna Izquierdo on 06-20-2023 Bilirubin Ql (U) Negative Negative [facility] Culture, urineOrdered By: Doc Deras on 06-20-2023 Bacteria identified Cx Nom (U) Escherichia coli [facility] Ketones Test strip Ql (U)Ord ered By: Kianna Izquierdo on 06-20-2023 Ketones Ql (U) Negative Negative [facility] Nitrite Test strip Ql (U)Ord ered By: Kianna Izquierdo on 06-20-2023 Nitrite Ql (U) Negative Negative [facility] Protein Test strip Ql (U)Ord ered By: Kianna Izquierdo on 06-20-2023 Protein Ql (U) 15 mg/dl Negative [facility] Urine blood detectionOrdered By: Kianna Izquierdo on 06-20-2023 RBC Ql (U) Negative Negative [facility] Urine clarityOrdered By: Apple Izquierdo on 06-20-2023 Clarity (U) Clear Clear [facility] Urine color determinationOrd ered By: Kianna Izquierdo on 06-20-2023 Color (U) Yellow Yellow [facility] Urine glucose detectionOrder ed By: Kianna Izquierdo on 06-20-2023 Glucose Ql (U) Normal mg/dl Normal [facility] Urine leukocyte esterase det ection by dipstickOrdered By: Kianna Izquierdo on 06-20-2023 Leukocyte esterase Test strip Ql (U) 500 /ul Negative [facility] Urine pHOrdered By: Kianna reynolds on 06-20-2023 pH (U) 6.0 [pH] 5.0 - 8.0 [facility] Urine specific gravity measu rementOrdered By: Kianna Izquierdo on 06-20-2023 Specific gravity (U) [Rel density] 1.015 1.002-1.030 [facility] Urobilinogen Auto test strip Ql (U)Ordered By: Kianna Izquierdo on 06-20-2023 Urobilinogen Ql (U) Normal mg/dl Normal [facility] Erythrocyte sedimentation ra teOrdered By: Kianna Izquierdo on 06-01-2023 ESR (Bld) [Velocity] 8 mm/h 0-30 [facility] No Panel Informationon 06-01 Normal appearance of the patient's right total knee arthroplasty. Moderate osteoarthritis of the medial compartment of the left knee. Report Dictated on Electronically Signed By: Troy Rubin MD Electronically Signed Date/Time: 06/01/2023 8:30 AM EDT [facility] Patient Name: ANDRE BLANCA : 1950 Exam Date/Time: 05/31/2023 15:15 Procedure: XR KNEES [...] the right knee. Soft tissues are unremarkable. [facility] Troy Rubin MD - 06/01/2023 Patient Name: ANDRE BLANCA : 1950 Exam Date/Time: 05/31/2023 15:15 Procedure: XR KNEES [...] Electronically Signed Date/Time: 06/01/2023 8:30 AM EDT [facility] No Panel InformationOrdered By: Troy Rubin on 06-01-2023 [facility] Work Phone: Serum or plasma C reactive p rotein measurement (mass/volume)Ordered By: Kianna Izquierdo on 06-01-2023 CRP [Mass/Vol] 10.20 mg/L 0.0-3.0 [facility] Comment on above: C-Reactive Protein ( CRP) provides useful information for thediagnosis, therapy and monitoring of inflammatory processesand associated diseases. For the evaluation of Relative Riskfor Cardiovascular Disease, a High Sensitivity CRP (HSCRP)should be ordered. XR Knee - right 1 or 2 Views on 06-01-2023 Patient Name: ANDRE BLANCA DOB: 1950 Exam Date/Time: 05/31/2023 15:15 Procedure: XR [...] the right knee. Soft tissues are unremarkable. [facility] Troy Rubin MD - 06/01/2023 [...] Electronically Signed Date/Time: 06/01/2023 8:30 AM EDT [facility] No Panel Informationon 05-31 [facility]narrative[facility] Basophil percentageOrdered B y: Kianna Izquierdo on 04-25-2023 Cholesterol [Mass/Vol] 141 mg/dL <200 [facility] Comment on above: <200 mg/dL Desirable 200-240 mg/dL Borderline >240 mg/dL High Risk Triglyceride [Mass/Vol] 84 mg/dL <199 [facility] Comment on above: The drugs N-Acetylcy steine and Metamizole may falsely depress this assay.Serum Triglycerides Reference Interval Normal <150 mg/dL Borderline high 150 - 199 mg/dL High 200 - 499 mg/dL Very High > or = 500 mg/dL Serum or plasma cholesterol in HDL measurement (mass/volume)Ordered By: Kianna Izquierdo on 04-25-2023 Cholesterol in HDL [Mass/Vol] 44 mg/dL >40 [facility] Comment on above: The drugs N-Acetylcy steine and Metamizole may falsely depress this assay. Reference Range HDL <40 mg/dL Low HDL Cholesterol HDL >or= 60 mg/dL High HDL Cholesterol Serum or plasma cholesterol in VLDL measurement (mass/volume)Ordered By: Kianna Izquierdo on 04-25-2023 Cholesterol in VLDL [Mass/Vol] 17 mg/dL 5-40 [facility] Serum or plasma low density lipoprotein (LDL) cholesterol measurement (mass/volume)Ordered By: Kianna Izquierdo on 04-25-2023 Cholesterol in LDL [Mass/Vol] 80 mg/dL 0-130 [facility] No Panel Informationon 02-08 1. Right knee edema. 2. 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 3. Sizable right knee joint effusion. Report Dictated on Electronically Signed By: Ajay Oden Electronically Signed Date/Time: 02/08/2023 3:12 PM EDT [facility] Patient Name: ANDRE BLANCA : 1950 Exam Date/Time: 02/08/2023 13:06 Procedure: XR [...] The bone mineralization is within normal limits. [facility] Ajay Oden MD - 02/08/2023 Patient Name: ANDRE BLANCA : 1950 Exam Date/Time: 02/08/2023 13:06 Procedure: XR [...] Electronically Signed Date/Time: 02/08/2023 3:12 PM EDT [facility] Radiology Study observation (narrative) [facility] No Panel InformationOrdered By: Ajay Oden on 02-08-2023 [facility] Work Phone: XR Knee - right 1 [...] The bone mineralization is within normal limits. [facility] Ajay Oden MD - 02/08/2023 Patient Name: ANDRE BLANCA : 1950 Exam Date/Time: 02/08/2023 13:06 Procedure: XR [...] Electronically Signed Date/Time: 02/08/2023 3:12 PM EDT [facility] No Panel InformationOrdered By: Kianna Izquierdo on 02-06-2023 Miscellaneous Test See comment [facility] Comment on above: TEST RESULTS LIMITSC arbamazepine(Tegretol), S 7.9 ug/mL 4.0-12.0 In conjunction with other antiepileptic drugs Therapeutic 4.0 - 8.0 Toxicity 9.0 - 12.0 Carbamazepine alone Therapeutic 8.0 - 12.0 Detection Limit = 2.0 <2.0 indicates None Detected TESTING PERFORMED AT [facility]. ORIGINAL REPORT ON FILE IN LAB CONTAINS ADDITIONAL TEST SITE INFORMATION. No Panel InformationOrdered By: Kianna Izquierdo on 01-31-2023 Miscellaneous Test See comment [facility] Comment on above: TEST RESULT LIMITSCa rbamazepine(Tegretol), S 7.8 ug/mL 4.0-12.0 In conjunction with other antiepileptic drugs Therapeutic 4.0 - 8.0 Toxicity 9.0 - 12.0 Carbamazepine alone Therapeutic 8.0 - 12.0 Detection Limit = 2.0 <2.0 indicates None Detected ___ TESTING PERFORMED AT [facility]. ORIGINAL REPORT ON FILE IN LAB CONTAINS ADDITIONAL TEST SITE INFORMATION. Basic metabolic 1998 panelon 01-13-2023 Anion gap [Moles/Vol] 6 mmol/L 3 - 13 mmol/L [facility] Calcium [Mass/Vol] 8.5 mg/dL 8.4 - 10. 4 mg/dL [facility] Chloride [Moles/Vol] 101 mmol/L 98 - 10 7 mmol/L [facility] CO2 [Moles/Vol] 29 mmol/L 22 - 30 mmol/L [facility] Creatinine [Mass/Vol] 0.62 mg/dL 0.52 - 1.04 mg/dL [facility] GFR/1.73 sq M.predicted MDRD (S/P/Bld) [Vol rate/Area] - PINF [facility] Comment on above: Calculation based on the Chronic Kidney Disease Epidemiology Collaboration (CKD-EPI) equation refit without adjustment for race Glucose [Mass/Vol] 150 mg/dL High 70 - 100 mg/dL [facility] Interpretation and review of laboratory results Abnormal [facility] Potassium [Moles/Vol] 3.9 mmol/L 3.5 - 5.1 mmol/L [facility] Sodium [Moles/Vol] 136 mmol/L 135 - 145 mmol/L [facility] Urea nitrogen [Mass/Vol] 11 mg/dL 7 - 17 mg/dL [facility] Hemoglobin (Bld) [Mass/Vol]O rdered By: Mukund Buchanan on 01-13-2023 Hematocrit (Bld) [Volume fraction] 33.6 % Low 35.0 - 47.0 % [facility] Interpretation and review of laboratory results Abnormal [facility] Laboratory - Hematology and Cell countsOrdered By: Mukund Buchanan on 01-13-2023 Hemoglobin (Bld) [Mass/Vol] 10.9 g/dL Low 11.7 - 16.0 g/dL [facility] No Panel InformationOrdered By: Jose Reynoso on 01-13-2023 P [place] 64 degrees teextee Phone: IA Interval 212 ms [employer]extee Phone: QRS [place] 78 degrees teextee Phone: QRSD Interval 136 ms [employer]extee Phone: QT Interval 436 ms [employer]extee Phone: QTC Interval 471 ms [employer]extee Phone: T Wave [place] 14 degrees teextee Phone: teextee Phone: No Panel Informationon 01-13 SINUS RHYTHM RIGHT BUNDLE BRANCH BLOCK Electronically Signed On 01-13-2023 11:09:43 EDT by Jose [employer] Jose Mcgowan MD - 01/13/2023 IMPRESSION: SINUS RHYTHM RIGHT BUNDLE BRANCH BLOCK Electronically Signed On 01-13-2023 11:09:43 EDT by Jose [employer] Vital signsOrdered By: Erica [employer] on 01-13-2023 Heart rate 70 /min bpm [employer] Phone: Peripheral Blockon 3 FREDERICK Copeland CRNA 01/12/2023 1:26 PM Peripheral Block Time Out: 01/12/2023 1:09 PM Patient location during procedure: post-op Start time: 01/12/2023 1:09 PM End time: 01/12/2023 1:22 PM Reason for block: at surgeon's request and post-op pain management Staffing Performed: ASSISTANT MANAGER PT Resident/ASSISTANT MANAGER PT: FREDERICK Copeland CRNA Preanesthetic Checklist Completed: patient identified, IV checked, site marked, risks and benefits discussed, surgical consent, monitors and equipment checked, pre-op evaluation and timeout performed Region: Lower Extremities Primary: Adductor Canal Peripheral Block Patient position: supine Prep: ChloraPrep Patient monitoring: heart rate, engine monitor, continuous pulse ox and continuous capnometry [...] Injection 30 mL - 01/12/2023 1:09:00 PM [facility] Spinal Blockon 01-12-2023 FREDERICK Courtney CRNA 01/12/2023 11:02 AM Spinal Block Time Out: 01/12/2023 10:54 AM Patient location during procedure: OR Start time: 01/12/2023 10:55 AM End time: 01/12/2023 11:02 AM Reason for block: primary anesthetic Staffing Performed: ASSISTANT MANAGER PT Resident/ASSISTANT MANAGER PT: FREDERICK Courtney CRNA Preanesthetic Checklist Completed: patient [...] CSF. No Heme. No Parathesia [facility] Basophil percentageOrdered B y: Kianna Izquierdo on 01-04-2023 Chloride [Moles/Vol] 105 mmol/L 98-107 [facility] Glucose [Mass/Vol] 93 mg/dL 74-106 [facility] Potassium [Moles/Vol] 3.6 mmol/L 3.5-5.1 [facility] Sodium [Moles/Vol] 143 mmol/L 136-145 [facility] Laboratory - Chemistry and C hemistry - challengeOrdered By: Kianna Izquierdo on 01-04-2023 CO2 [Moles/Vol] 31.0 mmol/L 21.0-32.0 [facility] Urea nitrogen/Creatinine [Mass ratio] 15.7 mg/mg 10-20 [facility] No Panel InformationOrdered By: Kianna Izquierdo on 01-04-2023 Estimated GFR (MDRD) Amer 106 mL/min >60 [facility] Comment on above: GFR Calc Estimated GFR (MDRD) Non-Af Amer 87 mL/min >60 [facility] Comment on above: Non- GFR Calc Serum or plasma calcium carlie urement (mass/volume)Ordered By: Kianna Izquierdo on 01-04-2023 Calcium [Mass/Vol] 8.8 mg/dL 8.5-10.1 [facility] Serum or plasma creatinine m easurement (mass/volume)Ordered By: Kianna Izquierdo on 01-04-2023 Creatinine [Mass/Vol] 0.70 mg/dL 0.55-1.02 [facility] Comment on above: The validity of the calculated GFR & GFRAA in patients over 70 years has not been determined. Clinical correlation is essential. Serum or plasma urea nitroge n measurement (mass/volume)Ordered By: Kianna Izquierdo on 01-04-2023 Urea nitrogen [Mass/Vol] 11 mg/dL -18 [facility] Thin prep Papanicolaou smear with manual screeningOrdered By: Kianna Izquierdo on 01-04-2023 Thin prep Papanicolaou smear with manual screening 7 - [facility] Basophil percentageOrdered B y: Kianna Izquierdo on 12-26-2022 Bilirubin [Mass/Vol] 0.20 mg/dL 0.20-1.00 [facility] Comment on above: For patients on eltr ombopag therapy, use of Dim[employer] [place] TBIL is not recommended. Chloride [Moles/Vol] 105 mmol/L 98-107 [facility] Glucose [Mass/Vol] 93 mg/dL 74-106 [facility] Potassium [Moles/Vol] 3.5 mmol/L 3.5-5.1 [facility] Protein [Mass/Vol] 6.5 g/dL 6.4-8.2 [facility] Sodium [Moles/Vol] 143 mmol/L 136-145 [facility] WBC (Bld) [#/Vol] 7.2 10*3/uL 4.4-11.0 [facility] Blood erythrocytes count (nu mber/volume)Ordered By: Kianna Izquierdo on 12-26-2022 RBC (Bld) [#/Vol] 3.96 10*6/uL 4.2-5.4 [facility] Blood hemoglobin measurement (mass/volume)Ordered By: Kianna Izquierdo on 12-26-2022 Hemoglobin (Bld) [Mass/Vol] 11.2 g/dL 12.0-15.0 [facility] Blood platelet mean volumeOr dered By: Kianna Izquierdo on 12-26-2022 Platelet mean volume (Bld) [Entitic vol] 10.2 fL 6.2-12.0 [facility] Determination of erythrocyte mean corpuscular volume (MCV)Ordered By: Kianna Izquierdo on 12-26-2022 MCV (RBC) [Entitic vol] 91.2 fL 81-99 [facility] Hematocrit Auto (Bld) [Volum e fraction]Ordered By: Kianna Izquierdo on 12-26-2022 Hematocrit (Bld) [Volume fraction] 36.1 % 37-47 [facility] Laboratory - Chemistry and C hemistry - challengeOrdered By: Kianna Izquierdo on 12-26-2022 ALP [Catalytic activity/Vol] 124 U/L 45-117 [facility] ALT [Catalytic activity/Vol] 18 U/L 13-56 [facility] CO2 [Moles/Vol] 32.0 mmol/L 21.0-32.0 [facility] Globulin (S) [Mass/Vol] 3.6 g/dL 2.2-4.2 [facility] Urea nitrogen/Creatinine [Mass ratio] 15.9 mg/mg 10-20 [facility] Laboratory - Hematology and Cell countsOrdered By: Kianna Izquierdo on 12-26-2022 Erythrocyte distribution width (RBC) [Entitic vol] 48.0 fL 35.1-43.9 [facility] Erythrocyte distribution width (RBC) [Ratio] 14.2 % 11.6-14.6 [facility] MCH (RBC) [Entitic mass] 28.3 pg 27.0-32.0 [facility] MCHC Auto (RBC) [Mass/Vol]Or dered By: Kianna Izquierdo on 12-26-2022 MCHC (RBC) [Mass/Vol] 31.0 g/dL 32-36 [facility] No Panel InformationOrdered By: Kianna Izquierdo on 12-26-2022 Estimated GFR (MDRD) Amer 106 mL/min >60 [facility] Comment on above: GFR Calc Estimated GFR (MDRD) Non-Af Amer 88 mL/min >60 [facility] Comment on above: Non- GFR Calc Platelets bldOrdered By: Apple Izquierdo on 12-26-2022 Platelets (Bld) [#/Vol] 241 10*3/uL 150-450 [facility] Serum or plasma albumin carlie urement (mass/volume)Ordered By: Kianna Izquierdo on 12-26-2022 Albumin [Mass/Vol] 2.9 g/dL 3.2-5.0 [facility] Serum or plasma albumin/glob ulin mass ratioOrdered By: Kianna Izquierdo on 12-26-2022 Albumin/Globulin [Mass ratio] 0.8 {ratio} 0.9-2.4 [facility] Serum or plasma calcium carlie urement (mass/volume)Ordered By: Kianna Izquierdo on 12-26-2022 Calcium [Mass/Vol] 8.3 mg/dL 8.5-10.1 [facility] Serum or plasma creatinine m easurement (mass/volume)Ordered By: Kianna Izquierdo on 12-26-2022 Creatinine [Mass/Vol] 0.69 mg/dL 0.55-1.02 [facility] Comment on above: The validity of the calculated GFR & GFRAA in patients over 70 years has not been determined. Clinical correlation is essential. Serum or plasma urea nitroge n measurement (mass/volume)Ordered By: Kianna Izquierdo on 12-26-2022 Urea nitrogen [Mass/Vol] 11 mg/dL 7-18 [facility] Thin prep Papanicolaou smear with manual screeningOrdered By: Kianna Izquierdo on 12-26-2022 Thin prep Papanicolaou smear with manual screening 17 U/L 15-37 [facility] Thin prep Papanicolaou smear with manual screening 6 5-15 [facility] Basophil percentageOrdered B y: Kianna Izquierdo on 12-19-2022 Chloride [Moles/Vol] 106 mmol/L 98-107 [facility] Glucose [Mass/Vol] 83 mg/dL 74-106 [facility] Potassium [Moles/Vol] 4.0 mmol/L 3.5-5.1 [facility] Sodium [Moles/Vol] 145 mmol/L 136-145 [facility] WBC (Bld) [#/Vol] 6.9 10*3/uL 4.4-11.0 [facility] Blood erythrocytes count (nu mber/volume)Ordered By: Kianna Izquierdo on 12-19-2022 RBC (Bld) [#/Vol] 3.81 10*6/uL 4.2-5.4 [facility] Blood hemoglobin measurement (mass/volume)Ordered By: Kianna Izquierdo on 12-19-2022 Hemoglobin (Bld) [Mass/Vol] 11.0 g/dL 12.0-15.0 [facility] Blood platelet mean volumeOr dered By: Kianna Izquierdo on 12-19-2022 Platelet mean volume (Bld) [Entitic vol] 10.8 fL 6.2-12.0 [facility] Determination of erythrocyte mean corpuscular volume (MCV)Ordered By: Kianna Izquierdo on 12-19-2022 MCV (RBC) [Entitic vol] 92.1 fL 81-99 [facility] Hematocrit Auto (Bld) [Volum e fraction]Ordered By: Kianna Izquierdo on 12-19-2022 Hematocrit (Bld) [Volume fraction] 35.1 % 37-47 [facility] Laboratory - Chemistry and C hemistry - challengeOrdered By: Kianna Izquierdo on 12-19-2022 CO2 [Moles/Vol] 33.0 mmol/L 21.0-32.0 [facility] Urea nitrogen/Creatinine [Mass ratio] 14.1 mg/mg 10-20 [facility] Laboratory - Hematology and Cell countsOrdered By: Kianna Izquierdo on 12-19-2022 Erythrocyte distribution width (RBC) [Entitic vol] 49.1 fL 35.1-43.9 [facility] Erythrocyte distribution width (RBC) [Ratio] 14.6 % 11.6-14.6 [facility] MCH (RBC) [Entitic mass] 28.9 pg 27.0-32.0 [facility] MCHC Auto (RBC) [Mass/Vol]Or dered By: Kianna Izquierdo on 12-19-2022 MCHC (RBC) [Mass/Vol] 31.3 g/dL 32-36 [facility] No Panel InformationOrdered By: Kianna Izquierdo on 12-19-2022 Estimated GFR (MDRD) Amer 93 mL/min >60 [facility] Comment on above: GFR Calc Estimated GFR (MDRD) Non-Af Amer 77 mL/min >60 [facility] Comment on above: Non- GFR Calc Platelets bldOrdered By: Apple Izquierdo on 12-19-2022 Platelets (Bld) [#/Vol] 261 10*3/uL 150-450 [facility] Serum or plasma calcium carlie urement (mass/volume)Ordered By: Kianna Izquierdo on 12-19-2022 Calcium [Mass/Vol] 8.8 mg/dL 8.5-10.1 [facility] Serum or plasma creatinine m easurement (mass/volume)Ordered By: Kianna Izquierdo on 12-19-2022 Creatinine [Mass/Vol] 0.78 mg/dL 0.55-1.02 [facility] Comment on above: The validity of the calculated GFR & GFRAA in patients over 70 years has not been determined. Clinical correlation is essential. Serum or plasma urea nitroge n measurement (mass/volume)Ordered By: Kianna Izquierdo on 12-19-2022 Urea nitrogen [Mass/Vol] 11 mg/dL 7-18 [facility] Thin prep Papanicolaou smear with manual screeningOrdered By: Kianna Izquierdo on 12-19-2022 Thin prep Papanicolaou smear with manual screening 6 5-15 [facility] Basophil percentageOrdered B y: Kianna Izquierdo on 12-01-2022 Chloride [Moles/Vol] 105 mmol/L 98-107 [facility] Glucose [Mass/Vol] 89 mg/dL 74-106 [facility] Potassium [Moles/Vol] 3.8 mmol/L 3.5-5.1 [facility] Sodium [Moles/Vol] 140 mmol/L 136-145 [facility] - Chemistry and C hemistry - challengeOrdered By: Kianna Izquierdo on 12-01-2022 CO2 [Moles/Vol] 34.0 mmol/L 21.0-32.0 [facility] Urea nitrogen/Creatinine [Mass ratio] 16.0 mg/mg 10- [facility] No Panel InformationOrdered By: Kianna Izquierdo on 12-01-2022 Estimated GFR (MDRD) Amer 88 mL/min >60 [facility] Comment on above: GFR Calc Estimated GFR (MDRD) Non-Af Amer 73 mL/min >60 [facility] Comment on above: Non- GFR Calc Serum or plasma calcium carlie urement (mass/volume)Ordered By: Kianna Izquierdo on 12-01-2022 Calcium [Mass/Vol] 8.8 mg/dL 8.5-10.1 [facility] Serum or plasma creatinine m easurement (mass/volume)Ordered By: Kianna Izquierdo on 12-01-2022 Creatinine [Mass/Vol] 0.82 mg/dL 0.55-1.02 [facility] Comment on above: The validity of the calculated GFR & GFRAA in patients over 70 years has not been determined. Clinical correlation is essential. Serum or plasma urea nitroge n measurement (mass/volume)Ordered By: Kianna Izquierdo on 12-01-2022 Urea nitrogen [Mass/Vol] 13 mg/dL 7-18 [facility] Thin prep Papanicolaou smear with manual screeningOrdered By: Kianna Izquierdo on 12-01-2022 Thin prep Papanicolaou smear with manual screening 1 5-15 [facility] Basophil percentageOrdered B y: Kianna Izquierdo on 11-24-2022 Chloride [Moles/Vol] 105 mmol/L 98-107 [facility] Glucose [Mass/Vol] 82 mg/dL 74-106 [facility] Potassium [Moles/Vol] 3.3 mmol/L 3.5-5.1 [facility] Sodium [Moles/Vol] 143 mmol/L 136-145 [facility] WBC (Bld) [#/Vol] 7.0 10*3/uL 4.4-11.0 [facility] Blood erythrocytes count (nu mber/volume)Ordered By: Kianna Izquierdo on 11-24-2022 RBC (Bld) [#/Vol] 3.73 10*6/uL 4.2-5.4 [facility] Blood hemoglobin measurement (mass/volume)Ordered By: Kianna Izquierdo on 11-24-2022 Hemoglobin (Bld) [Mass/Vol] 10.5 g/dL 12.0-15.0 [facility] Blood platelet mean volumeOr dered By: Kianna Izquierdo on 11-24-2022 Platelet mean volume (Bld) [Entitic vol] 10.1 fL 6.2-12.0 [facility] Determination of erythrocyte mean corpuscular volume (MCV)Ordered By: Kianna Izquierdo on 11-24-2022 MCV (RBC) [Entitic vol] 89.0 fL 81-99 [facility] Hematocrit Auto (Bld) [Volum e fraction]Ordered By: Kianna Izquierdo on 11-24-2022 Hematocrit (Bld) [Volume fraction] 33.2 % 37-47 [facility] Laboratory - Chemistry and C hemistry - challengeOrdered By: Kianna Izquierdo on 11-24-2022 CO2 [Moles/Vol] 33.0 mmol/L 21.0-32.0 [facility] Urea nitrogen/Creatinine [Mass ratio] 12.9 mg/mg 10-20 [facility] Laboratory - Hematology and Cell countsOrdered By: Kianna Izquierdo on 11-24-2022 Erythrocyte distribution width (RBC) [Entitic vol] 50.9 fL 35.1-43.9 [facility] Erythrocyte distribution width (RBC) [Ratio] 15.5 % 11.6-14.6 [facility] MCH (RBC) [Entitic mass] 28.2 pg 27.0-32.0 [facility] MCHC Auto (RBC) [Mass/Vol]Or dered By: Kianna Izquierdo on 11-24-2022 MCHC (RBC) [Mass/Vol] 31.6 g/dL 32-36 [facility] No Panel InformationOrdered By: Kianna Izquierdo on 11-24-2022 Estimated GFR (MDRD) Amer 121 mL/min >60 [facility] Comment on above: GFR Calc Estimated GFR (MDRD) Non-Af Amer 100 mL/min >60 [facility] Comment on above: Non- GFR Calc Platelets bldOrdered By: Apple Izquierdo on 11-24-2022 Platelets (Bld) [#/Vol] 259 10*3/uL 150-450 [facility] Serum or plasma calcium carlie urement (mass/volume)Ordered By: Kianna Izquierdo on 11-24-2022 Calcium [Mass/Vol] 8.8 mg/dL 8.5-10.1 [facility] Serum or plasma creatinine m easurement (mass/volume)Ordered By: Kianna Izquierdo on 11-24-2022 Creatinine [Mass/Vol] 0.62 mg/dL 0.55-1.02 [facility] Comment on above: The validity of the calculated GFR & GFRAA in patients over 70 years has not been determined. Clinical correlation is essential. Serum or plasma urea nitroge n measurement (mass/volume)Ordered By: Kianna Izquierdo on 11-24-2022 Urea nitrogen [Mass/Vol] 8 mg/dL 7-18 [facility] Thin prep Papanicolaou smear with manual screeningOrdered By: Kianna Izquierdo on 11-24-2022 Thin prep Papanicolaou smear with manual screening 5 5-15 [facility] Basophil percentageOrdered B y: Kianna Izquierdo on 11-17-2022 Chloride [Moles/Vol] 103 mmol/L 98-107 [facility] Glucose [Mass/Vol] 127 mg/dL 74-106 [facility] Comment on above: Fasting Glucose resu lt greater than or equal to 126 mg/dL suggests DIABETES MELLITUS per A.D.A. criteria. Potassium [Moles/Vol] 3.4 mmol/L 3.5-5.1 [facility] Sodium [Moles/Vol] 141 mmol/L 136-145 [facility] WBC (Bld) [#/Vol] 6.0 10*3/uL 4.4-11.0 [facility] Blood erythrocytes count (nu mber/volume)Ordered By: Kianna Izquierdo on 11-17-2022 RBC (Bld) [#/Vol] 3.76 10*6/uL 4.2-5.4 [facility] Blood hemoglobin measurement (mass/volume)Ordered By: Kianna Izquierdo on 11-17-2022 Hemoglobin (Bld) [Mass/Vol] 10.5 g/dL 12.0-15.0 [facility] Blood platelet mean volumeOr dered By: Kianna Izquierdo on 11-17-2022 Platelet mean volume (Bld) [Entitic vol] 10.2 fL 6.2-12.0 [facility] Determination of erythrocyte mean corpuscular volume (MCV)Ordered By: Kianna Izquierdo on 11-17-2022 MCV (RBC) [Entitic vol] 90.2 fL 81-99 [facility] Hematocrit Auto (Bld) [Volum e fraction]Ordered By: Kianna Izquierdo on 11-17-2022 Hematocrit (Bld) [Volume fraction] 33.9 % 37-47 [facility] Laboratory - Chemistry and C hemistry - challengeOrdered By: Kianna Izquierdo on 11-17-2022 CO2 [Moles/Vol] 35.0 mmol/L 21.0-32.0 [facility] Urea nitrogen/Creatinine [Mass ratio] 12.2 mg/mg 10-20 [facility] Laboratory - Hematology and Cell countsOrdered By: Kianna Izquierdo on 11-17-2022 Erythrocyte distribution width (RBC) [Entitic vol] 51.2 fL 35.1-43.9 [facility] Erythrocyte distribution width (RBC) [Ratio] 15.5 % 11.6-14.6 [facility] MCH (RBC) [Entitic mass] 27.9 pg 27.0-32.0 [facility] MCHC Auto (RBC) [Mass/Vol]Or dered By: Kianna Izquierdo on 11-17-2022 MCHC (RBC) [Mass/Vol] 31.0 g/dL 32-36 [facility] No Panel InformationOrdered By: Kianna Izquierdo on 11-17-2022 Estimated GFR (MDRD) Amer 113 mL/min >60 [facility] Comment on above: GFR Calc Estimated GFR (MDRD) Non-Af Amer 94 mL/min >60 [facility] Comment on above: Non- GFR Calc Platelets bldOrdered By: Apple Izquierdo on 11-17-2022 Platelets (Bld) [#/Vol] 249 10*3/uL 150-450 [facility] Serum or plasma calcium carlie urement (mass/volume)Ordered By: Kianna Izquierdo on 11-17-2022 Calcium [Mass/Vol] 8.6 mg/dL 8.5-10.1 [facility] Serum or plasma creatinine m easurement (mass/volume)Ordered By: Kianna Izquierdo on 11-17-2022 Creatinine [Mass/Vol] 0.66 mg/dL 0.55-1.02 [facility] Comment on above: The validity of the calculated GFR & GFRAA in patients over 70 years has not been determined. Clinical correlation is essential. Serum or plasma urea nitroge n measurement (mass/volume)Ordered By: Kianna Izquierdo on 11-17-2022 Urea nitrogen [Mass/Vol] 8 mg/dL 7-18 [facility] Thin prep Papanicolaou smear with manual screeningOrdered By: Kianna Izquierdo on 11-17-2022 Thin prep Papanicolaou smear with manual screening 3 5-15 [facility] Basophil percentageOrdered B y: Kianna Izquierdo on 10-19-2022 Chloride [Moles/Vol] 108 mmol/L 98-107 [facility] Glucose [Mass/Vol] 116 mg/dL 74-106 [facility] Comment on above: Fasting Glucose resu lt from 100 to 125 mg/dL suggests IMPAIRED HOMEOSTASIS per A.D.A. criteria. Potassium [Moles/Vol] 3.9 mmol/L 3.5-5.1 [facility] Sodium [Moles/Vol] 144 mmol/L 136-145 [facility] Laboratory - Chemistry and C hemistry - challengeOrdered By: Kianna Izquierdo on 10-19-2022 CO2 [Moles/Vol] 29.0 mmol/L 21.0-32.0 [facility] Urea nitrogen/Creatinine [Mass ratio] 17.0 mg/mg 10-20 [facility] No Panel InformationOrdered By: Kianna Izquierdo on 10-19-2022 Estimated GFR (MDRD) Amer 95 mL/min >60 [facility] Comment on above: GFR Calc Estimated GFR (MDRD) Non-Af Amer 79 mL/min >60 [facility] Comment on above: Non- GFR Calc Thyroid Stimulating Hormone (TSH) < 0.01 uIU/mL 0.358-3.74 [facility] Serum or plasma calcium carlie urement (mass/volume)Ordered By: Kianna Izquierdo on 10-19-2022 Calcium [Mass/Vol] 8.4 mg/dL 8.5-10.1 [facility] Serum or plasma creatinine m easurement (mass/volume)Ordered By: Kianna Izquierdo on 10-19-2022 Creatinine [Mass/Vol] 0.77 mg/dL 0.55-1.02 [facility] Comment on above: The validity of the calculated GFR & GFRAA in patients over 70 years has not been determined. Clinical correlation is essential. Serum or plasma urea nitroge n measurement (mass/volume)Ordered By: Kianna Izquierdo on 10-19-2022 Urea nitrogen [Mass/Vol] 13 mg/dL 7-18 [facility] Thin prep Papanicolaou smear with manual screeningOrdered By: Kianna Izquierdo on 10-19-2022 Thin prep Papanicolaou smear with manual screening 7 5-15 [facility] Basophil percentageOrdered B y: Kianna Izquierdo on 10-17-2022 Chloride [Moles/Vol] 105 mmol/L 98-107 [facility] Glucose [Mass/Vol] 121 mg/dL 74-106 [facility] Comment on above: Fasting Glucose resu lt from 100 to 125 mg/dL suggests IMPAIRED HOMEOSTASIS per A.D.A. criteria. Potassium [Moles/Vol] 3.0 mmol/L 3.5-5.1 [facility] Sodium [Moles/Vol] 143 mmol/L 136-145 [facility] WBC (Bld) [#/Vol] 6.5 10*3/uL 4.4-11.0 [facility] Blood erythrocytes count (nu mber/volume)Ordered By: Kianna Izquierdo on 10-17-2022 RBC (Bld) [#/Vol] 3.90 10*6/uL 4.2-5.4 [facility] Blood hemoglobin measurement (mass/volume)Ordered By: Kianna Izquierdo on 10-17-2022 Hemoglobin (Bld) [Mass/Vol] 10.4 g/dL 12.0-15.0 [facility] Blood platelet mean volumeOr dered By: Kianna Izquierdo on 10-17-2022 Platelet mean volume (Bld) [Entitic vol] 10.4 fL 6.2-12.0 [facility] Determination of erythrocyte mean corpuscular volume (MCV)Ordered By: Kianna Izquierdo on 10-17-2022 MCV (RBC) [Entitic vol] 88.7 fL 81-99 [facility] Hematocrit Auto (Bld) [Volum e fraction]Ordered By: Kianna Izquierdo on 10-17-2022 Hematocrit (Bld) [Volume fraction] 34.6 % 37-47 [facility] Laboratory - Chemistry and C hemistry - challengeOrdered By: Kianna Izquierdo on 10-17-2022 CO2 [Moles/Vol] 31.0 mmol/L 21.0-32.0 [facility] Urea nitrogen/Creatinine [Mass ratio] 10.0 mg/mg 10-20 [facility] Laboratory - Hematology and Cell countsOrdered By: Kianna Izquierdo on 10-17-2022 Erythrocyte distribution width (RBC) [Entitic vol] 52.4 fL 35.1-43.9 [facility] Erythrocyte distribution width (RBC) [Ratio] 16.2 % 11.6-14.6 [facility] MCH (RBC) [Entitic mass] 26.7 pg 27.0-32.0 [facility] MCHC Auto (RBC) [Mass/Vol]Or dered By: Kianna Izquierdo on 10-17-2022 MCHC (RBC) [Mass/Vol] 30.1 g/dL 32-36 [facility] No Panel InformationOrdered By: Kianna Izquierdo on 10-17-2022 Estimated GFR (MDRD) Amer 126 mL/min >60 [facility] Comment on above: GFR Calc Estimated GFR (MDRD) Non-Af Amer 105 mL/min >60 [facility] Comment on above: Non- GFR Calc Platelets bldOrdered By: Apple Izquierdo on 10-17-2022 Platelets (Bld) [#/Vol] 251 10*3/uL 150-450 [facility] Serum or plasma calcium carlie urement (mass/volume)Ordered By: Kianna Izquierdo on 10-17-2022 Calcium [Mass/Vol] 8.5 mg/dL 8.5-10.1 [facility] Serum or plasma creatinine m easurement (mass/volume)Ordered By: Kianna Izquierdo on 10-17-2022 Creatinine [Mass/Vol] 0.60 mg/dL 0.55-1.02 [facility] Comment on above: The validity of the calculated GFR & GFRAA in patients over 70 years has not been determined. Clinical correlation is essential. Serum or plasma urea nitroge n measurement (mass/volume)Ordered By: Kianna Izquierdo on 10-17-2022 Urea nitrogen [Mass/Vol] 6 mg/dL 7-18 [facility] Thin prep Papanicolaou smear with manual screeningOrdered By: Kianna Izquierdo on 10-17-2022 Thin prep Papanicolaou smear with manual screening 7 5-15 [facility] Basophil percentageOrdered B y: Kianna Izquierdo on 09-26-2022 Chloride [Moles/Vol] 106 mmol/L 98-107 [facility] Glucose [Mass/Vol] 92 mg/dL 74-106 [facility] Potassium [Moles/Vol] 3.7 mmol/L 3.5-5.1 [facility] Sodium [Moles/Vol] 141 mmol/L 136-145 [facility] Laboratory - Chemistry and C hemistry - challengeOrdered By: Kianna Izquierdo on 09-26-2022 CO2 [Moles/Vol] 29.0 mmol/L 21.0-32.0 [facility] Urea nitrogen/Creatinine [Mass ratio] 12.5 mg/mg 10-20 [facility] No Panel InformationOrdered By: Kianna Izquierdo on 09-26-2022 Estimated GFR (MDRD) Amer 102 mL/min >60 [facility] Comment on above: GFR Calc Estimated GFR (MDRD) Non-Af Amer 85 mL/min >60 [facility] Comment on above: Non- GFR Calc Serum or plasma calcium carlie urement (mass/volume)Ordered By: Kianna Izquierdo on 09-26-2022 Calcium [Mass/Vol] 8.5 mg/dL 8.5-10.1 [facility] Serum or plasma creatinine m easurement (mass/volume)Ordered By: Kianna Izquierdo on 09-26-2022 Creatinine [Mass/Vol] 0.72 mg/dL 0.55-1.02 [facility] Comment on above: The validity of the calculated GFR & GFRAA in patients over 70 years has not been determined. Clinical correlation is essential. Serum or plasma urea nitroge n measurement (mass/volume)Ordered By: Kianna Izquierdo on 09-26-2022 Urea nitrogen [Mass/Vol] 9 mg/dL 7-18 [facility] Thin prep Papanicolaou smear with manual screeningOrdered By: Kianna Izquierdo on 09-26-2022 Thin prep Papanicolaou smear with manual screening 6 5-15 [facility] Clostridium difficile detect ion by polymerase chain reactionOrdered By: Kianna Izquierdo on 09-20-2022 C. difficile DNA KAMLA+probe Ql (Unsp spec) [facility] Basophil percentageOrdered B y: Kianna Izquierdo on 09-19-2022 Chloride [Moles/Vol] 107 mmol/L 98-107 [facility] Glucose [Mass/Vol] 100 mg/dL 74-106 [facility] Comment on above: Fasting Glucose resu lt from 100 to 125 mg/dL suggests IMPAIRED HOMEOSTASIS per A.D.A. criteria. Potassium [Moles/Vol] 3.4 mmol/L 3.5-5.1 [facility] Sodium [Moles/Vol] 145 mmol/L 136-145 [facility] WBC (Bld) [#/Vol] 7.5 10*3/uL 4.4-11.0 [facility] Blood erythrocytes count (nu mber/volume)Ordered By: Kianna Izquierdo on 09-19-2022 RBC (Bld) [#/Vol] 4.01 10*6/uL 4.2-5.4 [facility] Blood hemoglobin measurement (mass/volume)Ordered By: Kianna Izquierdo on 09-19-2022 Hemoglobin (Bld) [Mass/Vol] 10.6 g/dL 12.0-15.0 [facility] Blood platelet mean volumeOr dered By: Kianna Izquierdo on 09-19-2022 Platelet mean volume (Bld) [Entitic vol] 10.3 fL 6.2-12.0 [facility] Determination of erythrocyte mean corpuscular volume (MCV)Ordered By: Kianna Izquierdo on 09-19-2022 MCV (RBC) [Entitic vol] 83.8 fL 81-99 [facility] Hematocrit Auto (Bld) [Volum e fraction]Ordered By: Kianna Izquierdo on 09-19-2022 Hematocrit (Bld) [Volume fraction] 33.6 % 37-47 [facility] Laboratory - Chemistry and C hemistry - challengeOrdered By: Kianna Izquierdo on 09-19-2022 CO2 [Moles/Vol] 31.0 mmol/L 21.0-32.0 [facility] Urea nitrogen/Creatinine [Mass ratio] 12.5 mg/mg 10-20 [facility] Laboratory - Hematology and Cell countsOrdered By: Kianna Izquierdo on 09-19-2022 Erythrocyte distribution width (RBC) [Entitic vol] 51.5 fL 35.1-43.9 [facility] Erythrocyte distribution width (RBC) [Ratio] 16.9 % 11.6-14.6 [facility] MCH (RBC) [Entitic mass] 26.4 pg 27.0-32.0 [facility] MCHC Auto (RBC) [Mass/Vol]Or dered By: Kianna Izquierdo on 09-19-2022 MCHC (RBC) [Mass/Vol] 31.5 g/dL 32-36 [facility] No Panel InformationOrdered By: Kianna Izquierdo on 09-19-2022 Estimated GFR (MDRD) Amer 117 mL/min >60 [facility] Comment on above: GFR Calc Estimated GFR (MDRD) Non-Af Amer 97 mL/min >60 [facility] Comment on above: Non- GFR Calc Platelets bldOrdered By: Apple Izquierdo on 09-19-2022 Platelets (Bld) [#/Vol] 261 10*3/uL 150-450 [facility] Serum or plasma calcium carlie urement (mass/volume)Ordered By: Kianna Izquierdo on 09-19-2022 Calcium [Mass/Vol] 8.9 mg/dL 8.5-10.1 [facility] Serum or plasma creatinine m easurement (mass/volume)Ordered By: Kianna Izquierdo on 09-19-2022 Creatinine [Mass/Vol] 0.64 mg/dL 0.55-1.02 [facility] Comment on above: The validity of the calculated GFR & GFRAA in patients over 70 years has not been determined. Clinical correlation is essential. Serum or plasma urea nitroge n measurement (mass/volume)Ordered By: Kianna Izquierdo on 09-19-2022 Urea nitrogen [Mass/Vol] 8 mg/dL 7-18 [facility] Thin prep Papanicolaou smear with manual screeningOrdered By: Kianna Izquierdo on 09-19-2022 Thin prep Papanicolaou smear with manual screening 7 5-15 [facility] Basophil percentageOrdered B y: Kianna Izquierdo on 08-18-2022 Chloride [Moles/Vol] 108 mmol/L 98-107 [facility] Glucose [Mass/Vol] 88 mg/dL 74-106 [facility] Potassium [Moles/Vol] 3.8 mmol/L 3.5-5.1 [facility] Sodium [Moles/Vol] 143 mmol/L 136-145 [facility] WBC (Bld) [#/Vol] 6.8 10*3/uL 4.4-11.0 [facility] Blood erythrocytes count (nu mber/volume)Ordered By: Kianna Izquierdo on 08-18-2022 RBC (Bld) [#/Vol] 3.98 10*6/uL 4.2-5.4 [facility] Blood hemoglobin measurement (mass/volume)Ordered By: Kianna Izquierdo on 08-18-2022 Hemoglobin (Bld) [Mass/Vol] 10.1 g/dL 12.0-15.0 [facility] Blood platelet mean volumeOr dered By: Kianna Izquierdo on 08-18-2022 Platelet mean volume (Bld) [Entitic vol] 10.1 fL 6.2-12.0 [facility] Determination of erythrocyte mean corpuscular volume (MCV)Ordered By: Kianna Izquierdo on 08-18-2022 MCV (RBC) [Entitic vol] 87.4 fL 81-99 [facility] Hematocrit Auto (Bld) [Volum e fraction]Ordered By: Kianna Izquierdo on 08-18-2022 Hematocrit (Bld) [Volume fraction] 34.8 % 37-47 [facility] Laboratory - Chemistry and C hemistry - challengeOrdered By: Kianna Izquierdo on 08-18-2022 CO2 [Moles/Vol] 31.0 mmol/L 21.0-32.0 [facility] Urea nitrogen/Creatinine [Mass ratio] 12.0 mg/mg 10-20 [facility] Laboratory - Hematology and Cell countsOrdered By: Kianna Izquierdo on 08-18-2022 Erythrocyte distribution width (RBC) [Entitic vol] 50.2 fL 35.1-43.9 [facility] Erythrocyte distribution width (RBC) [Ratio] 15.9 % 11.6-14.6 [facility] MCH (RBC) [Entitic mass] 25.4 pg 27.0-32.0 [facility] MCHC Auto (RBC) [Mass/Vol]Or dered By: Kianna Izquierdo on 08-18-2022 MCHC (RBC) [Mass/Vol] 29.0 g/dL 32-36 [facility] No Panel InformationOrdered By: Kianna Izquierdo on 08-18-2022 Estimated GFR (MDRD) Amer 131 mL/min >60 [facility] Comment on above: GFR Calc Estimated GFR (MDRD) Non-Af Amer 108 mL/min >60 [facility] Comment on above: Non- GFR Calc Platelets bldOrdered By: Apple Izquierdo on 08-18-2022 Platelets (Bld) [#/Vol] 317 10*3/uL 150-450 [facility] Serum or plasma calcium carlie urement (mass/volume)Ordered By: Kianna Izquierdo on 08-18-2022 Calcium [Mass/Vol] 8.7 mg/dL 8.5-10.1 [facility] Serum or plasma creatinine m easurement (mass/volume)Ordered By: Kianna Izquierdo on 08-18-2022 Creatinine [Mass/Vol] 0.58 mg/dL 0.55-1.02 [facility] Comment on above: The validity of the calculated GFR & GFRAA in patients over 70 years has not been determined. Clinical correlation is essential. Serum or plasma urea nitroge n measurement (mass/volume)Ordered By: Kianna Izquierdo on 08-18-2022 Urea nitrogen [Mass/Vol] 7 mg/dL 7-18 [facility] Thin prep Papanicolaou smear with manual screeningOrdered By: Kianna Izquierdo on 08-18-2022 Thin prep Papanicolaou smear with manual screening 4 5-15 [facility] Basophil percentageOrdered B y: Kianna Izquierdo on 08-16-2022 Chloride [Moles/Vol] 105 mmol/L 98-107 [facility] Glucose [Mass/Vol] 99 mg/dL 74-106 [facility] Potassium [Moles/Vol] 3.1 mmol/L 3.5-5.1 [facility] Sodium [Moles/Vol] 143 mmol/L 136-145 [facility] WBC (Bld) [#/Vol] 6.7 10*3/uL 4.4-11.0 [facility] Blood erythrocytes count (nu mber/volume)Ordered By: Kianna Izquierdo on 08-16-2022 RBC (Bld) [#/Vol] 3.94 10*6/uL 4.2-5.4 [facility] Blood hemoglobin measurement (mass/volume)Ordered By: Kianna Izquierdo on 08-16-2022 Hemoglobin (Bld) [Mass/Vol] 10.1 g/dL 12.0-15.0 [facility] Blood platelet mean volumeOr dered By: Kianna Izquierdo on 08-16-2022 Platelet mean volume (Bld) [Entitic vol] 10.0 fL 6.2-12.0 [facility] Determination of erythrocyte mean corpuscular volume (MCV)Ordered By: Kianna Izquierdo on 08-16-2022 MCV (RBC) [Entitic vol] 84.5 fL 81-99 [facility] Hematocrit Auto (Bld) [Volum e fraction]Ordered By: Kianna Izquierdo on 08-16-2022 Hematocrit (Bld) [Volume fraction] 33.3 % 37-47 [facility] Laboratory - Chemistry and C hemistry - challengeOrdered By: Kianna Izquierdo on 08-16-2022 CO2 [Moles/Vol] 30.0 mmol/L 21.0-32.0 [facility] Urea nitrogen/Creatinine [Mass ratio] 13.5 mg/mg 10-20 [facility] Laboratory - Hematology and Cell countsOrdered By: Kianna Izquierdo on 08-16-2022 Erythrocyte distribution width (RBC) [Entitic vol] 47.9 fL 35.1-43.9 [facility] Erythrocyte distribution width (RBC) [Ratio] 15.6 % 11.6-14.6 [facility] MCH (RBC) [Entitic mass] 25.6 pg 27.0-32.0 [facility] MCHC Auto (RBC) [Mass/Vol]Or dered By: Kianna Izquierdo on 08-16-2022 MCHC (RBC) [Mass/Vol] 30.3 g/dL 32-36 [facility] No Panel InformationOrdered By: Kianna Izquierdo on 08-16-2022 Estimated GFR (MDRD) Amer 127 mL/min >60 [facility] Comment on above: GFR Calc Estimated GFR (MDRD) Non-Af Amer 105 mL/min >60 [facility] Comment on above: Non- GFR Calc Platelets bldOrdered By: Apple Izquierdo on 08-16-2022 Platelets (Bld) [#/Vol] 303 10*3/uL 150-450 [facility] Serum or plasma calcium carlie urement (mass/volume)Ordered By: Kianna Izquierdo on 08-16-2022 Calcium [Mass/Vol] 8.5 mg/dL 8.5-10.1 [facility] Serum or plasma creatinine m easurement (mass/volume)Ordered By: Kianna Izquierdo on 08-16-2022 Creatinine [Mass/Vol] 0.59 mg/dL 0.55-1.02 [facility] Comment on above: The validity of the calculated GFR & GFRAA in patients over 70 years has not been determined. Clinical correlation is essential. Serum or plasma urea nitroge n measurement (mass/volume)Ordered By: Kianna Izquierdo on 08-16-2022 Urea nitrogen [Mass/Vol] 8 mg/dL 7-18 [facility] Thin prep Papanicolaou smear with manual screeningOrdered By: Kianna Izquierdo on 08-16-2022 Thin prep Papanicolaou smear with manual screening 8 5-15 [facility] No Panel InformationOrdered By: Kianna Izquierdo on 08-03-2022 Vitamin D 25-Hydroxy 41.8 ng/mL [facility] Comment on above: Vitamin D 25(OH) Sta tus Range Deficiency <20 ng/mL (50nmol/L) Insufficiency 20 - 30 ng/mL (50 - 75 nmol/L) Sufficiency 30 - 100 ng/mL (75 - 250 nmol/L) Toxicity >100 ng/mL (>250 nmol/L) Basophil percentageOrdered B y: Kianna Izquierdo on 07-04-2022 Chloride [Moles/Vol] 104 mmol/L 98-107 [facility] Glucose [Mass/Vol] 98 mg/dL 74-106 [facility] Potassium [Moles/Vol] 4.0 mmol/L 3.5-5.1 [facility] Sodium [Moles/Vol] 140 mmol/L 136-145 [facility] WBC (Bld) [#/Vol] 6.5 10*3/uL 4.4-11.0 [facility] Blood erythrocytes count (nu mber/volume)Ordered By: Kianna Izquierdo on 07-04-2022 RBC (Bld) [#/Vol] 3.87 10*6/uL 4.2-5.4 [facility] Blood hemoglobin measurement (mass/volume)Ordered By: Kianna Izquierdo on 07-04-2022 Hemoglobin (Bld) [Mass/Vol] 10.4 g/dL 12.0-15.0 [facility] Blood platelet mean volumeOr dered By: Kianna Izquierdo on 07-04-2022 Platelet mean volume (Bld) [Entitic vol] 10.1 fL 6.2-12.0 [facility] Determination of erythrocyte mean corpuscular volume (MCV)Ordered By: Kianna Izquierdo on 07-04-2022 MCV (RBC) [Entitic vol] 88.9 fL 81-99 [facility] Hematocrit Auto (Bld) [Volum e fraction]Ordered By: Kianna Izquierdo on 07-04-2022 Hematocrit (Bld) [Volume fraction] 34.4 % 37-47 [facility] Laboratory - Chemistry and C hemistry - challengeOrdered By: Kianna Izquierdo on 07-04-2022 CO2 [Moles/Vol] 32.0 mmol/L 21.0-32.0 [facility] Urea nitrogen/Creatinine [Mass ratio] 11.0 mg/mg 10-20 [facility] Laboratory - Hematology and Cell countsOrdered By: Kianna Izquierdo on 07-04-2022 Erythrocyte distribution width (RBC) [Entitic vol] 47.1 fL 35.1-43.9 [facility] Erythrocyte distribution width (RBC) [Ratio] 14.6 % 11.6-14.6 [facility] MCH (RBC) [Entitic mass] 26.9 pg 27.0-32.0 [facility] MCHC Auto (RBC) [Mass/Vol]Or dered By: Kianna Izquierdo on 07-04-2022 MCHC (RBC) [Mass/Vol] 30.2 g/dL 32-36 [facility] No Panel InformationOrdered By: Kianna Izquierdo on 07-04-2022 Estimated GFR (MDRD) Amer 118 mL/min >60 [facility] Comment on above: GFR Calc Estimated GFR (MDRD) Non-Af Amer 98 mL/min >60 [facility] Comment on above: Non- GFR Calc Platelets bldOrdered By: Apple Izquierdo on 07-04-2022 Platelets (Bld) [#/Vol] 365 10*3/uL 150-450 [facility] Serum or plasma calcium carlie urement (mass/volume)Ordered By: Kianna Izquierdo on 07-04-2022 Calcium [Mass/Vol] 8.9 mg/dL 8.5-10.1 [facility] Serum or plasma creatinine m easurement (mass/volume)Ordered By: Kianna Izquierdo on 07-04-2022 Creatinine [Mass/Vol] 0.63 mg/dL 0.55-1.02 [facility] Comment on above: The validity of the calculated GFR & GFRAA in patients over 70 years has not been determined. Clinical correlation is essential. Serum or plasma urea nitroge n measurement (mass/volume)Ordered By: Kianna Izquierdo on 07-04-2022 Urea nitrogen [Mass/Vol] 7 mg/dL 7-18 [facility] Thin prep Papanicolaou smear with manual screeningOrdered By: Kianna Izquierdo on 07-04-2022 Thin prep Papanicolaou smear with manual screening 4 5-15 [facility] Basophil percentageOrdered B y: Kianna Izquierdo on 06-27-2022 Chloride [Moles/Vol] 101 mmol/L 98-107 [facility] Cholesterol [Mass/Vol] 140 mg/dL <200 [facility] Comment on above: <200 mg/dL Desirable 200-240 mg/dL Borderline >240 mg/dL High Risk Glucose [Mass/Vol] 100 mg/dL 74-106 [facility] Comment on above: Fasting Glucose resu lt from 100 to 125 mg/dL suggests IMPAIRED HOMEOSTASIS per A.D.A. criteria. Potassium [Moles/Vol] 3.3 mmol/L 3.5-5.1 [facility] Sodium [Moles/Vol] 140 mmol/L 136-145 [facility] Triglyceride [Mass/Vol] 117 mg/dL <199 [facility] Comment on above: The drugs N-Acetylcy steine and Metamizole may falsely depress this assay.Serum Triglycerides Reference Interval Normal <150 mg/dL Borderline high 150 - 199 mg/dL High 200 - 499 mg/dL Very High > or = 500 mg/dL WBC (Bld) [#/Vol] 7.5 10*3/uL 4.4-11.0 [facility] Blood erythrocytes count (nu mber/volume)Ordered By: Kianna Izquierdo on 06-27-2022 RBC (Bld) [#/Vol] 3.81 10*6/uL 4.2-5.4 [facility] Blood hemoglobin measurement (mass/volume)Ordered By: Kianna Izquierdo on 06-27-2022 Hemoglobin (Bld) [Mass/Vol] 10.1 g/dL 12.0-15.0 [facility] Blood platelet mean volumeOr dered By: Kianna Izquierdo on 06-27-2022 Platelet mean volume (Bld) [Entitic vol] 10.1 fL 6.2-12.0 [facility] Determination of erythrocyte mean corpuscular volume (MCV)Ordered By: Kianna Izquierdo on 06-27-2022 MCV (RBC) [Entitic vol] 89.2 fL 81-99 [facility] Hematocrit Auto (Bld) [Volum e fraction]Ordered By: Kianna Izquierdo on 06-27-2022 Hematocrit (Bld) [Volume fraction] 34.0 % 37-47 [facility] Laboratory - Chemistry and C hemistry - challengeOrdered By: Kianna Izquierdo on 06-27-2022 CO2 [Moles/Vol] 31.0 mmol/L 21.0-32.0 [facility] Urea nitrogen/Creatinine [Mass ratio] 10.7 mg/mg 10-20 [facility] Laboratory - Hematology and Cell countsOrdered By: Kianna Izquierdo on 06-27-2022 Erythrocyte distribution width (RBC) [Entitic vol] 47.3 fL 35.1-43.9 [facility] Erythrocyte distribution width (RBC) [Ratio] 14.7 % 11.6-14.6 [facility] MCH (RBC) [Entitic mass] 26.5 pg 27.0-32.0 [facility] MCHC Auto (RBC) [Mass/Vol]Or dered By: Kianna Izquierdo on 06-27-2022 MCHC (RBC) [Mass/Vol] 29.7 g/dL 32-36 [facility] No Panel InformationOrdered By: Kianna Izquierdo on 06-27-2022 Estimated GFR (MDRD) Amer 98 mL/min >60 [facility] Comment on above: GFR Calc Estimated GFR (MDRD) Non-Af Amer 81 mL/min >60 [facility] Comment on above: Non- GFR Calc Platelets bldOrdered By: Apple Izquierdo on 06-27-2022 Platelets (Bld) [#/Vol] 354 10*3/uL 150-450 [facility] Serum or plasma calcium carlie urement (mass/volume)Ordered By: Kianna Izquierdo on 06-27-2022 Calcium [Mass/Vol] 8.6 mg/dL 8.5-10.1 [facility] Serum or plasma cholesterol in HDL measurement (mass/volume)Ordered By: Kianna Izquierdo on 06-27-2022 Cholesterol in HDL [Mass/Vol] 34 mg/dL >40 [facility] Comment on above: The drugs N-Acetylcy steine and Metamizole may falsely depress this assay. Reference Range HDL <40 mg/dL Low HDL Cholesterol HDL >or= 60 mg/dL High HDL Cholesterol Serum or plasma cholesterol in VLDL measurement (mass/volume)Ordered By: Kianna Izquierdo on 06-27-2022 Cholesterol in VLDL [Mass/Vol] 23 mg/dL 5-40 [facility] Serum or plasma creatinine m easurement (mass/volume)Ordered By: Kianna Izquierdo on 06-27-2022 Creatinine [Mass/Vol] 0.75 mg/dL 0.55-1.02 [facility] Comment on above: The validity of the calculated GFR & GFRAA in patients over 70 years has not been determined. Clinical correlation is essential. Serum or plasma low density lipoprotein (LDL) cholesterol measurement (mass/volume)Ordered By: Kianna Izquierdo on 06-27-2022 Cholesterol in LDL [Mass/Vol] 83 mg/dL 0-130 [facility] Serum or plasma urea nitroge n measurement (mass/volume)Ordered By: Kianna Izquierdo on 06-27-2022 Urea nitrogen [Mass/Vol] 8 mg/dL 7-18 [facility] Thin prep Papanicolaou smear with manual screeningOrdered By: Kianna Izquierdo on 06-27-2022 Thin prep Papanicolaou smear with manual screening 8 5-15 [facility] 36on 06-21-2022 36 Kellee from the [place] [facility] [place] called back to check on status of getting pt scheduled for visit if needed. Advised that XR were ordered to be done by 06/15/22 at facility and sent to use for review. She is checking to see if XR were done and sent over to provider for review and will call back on , 06/23/22 with an update. Normal [facility] Basophil percentageOrdered B y: Kianna Izquierdo on 06-13-2022 Chloride [Moles/Vol] 102 mmol/L 98-107 [facility] Glucose [Mass/Vol] 102 mg/dL 74-106 [facility] Comment on above: Fasting Glucose resu lt from 100 to 125 mg/dL suggests IMPAIRED HOMEOSTASIS per A.D.A. criteria. Potassium [Moles/Vol] 3.7 mmol/L 3.5-5.1 [facility] Sodium [Moles/Vol] 140 mmol/L 136-145 [facility] WBC (Bld) [#/Vol] 10.4 10*3/uL 4.4-11.0 [facility] Blood erythrocytes count (nu mber/volume)Ordered By: Kianna Izquierdo on 06-13-2022 RBC (Bld) [#/Vol] 3.35 10*6/uL 4.2-5.4 [facility] Blood hemoglobin measurement (mass/volume)Ordered By: Kianna Izquierdo on 06-13-2022 Hemoglobin (Bld) [Mass/Vol] 9.3 g/dL 12.0-15.0 [facility] Blood platelet mean volumeOr dered By: Kianna Izquierdo on 06-13-2022 Platelet mean volume (Bld) [Entitic vol] 9.5 fL 6.2-12.0 [facility] Determination of erythrocyte mean corpuscular volume (MCV)Ordered By: Kianna Izquierdo on 06-13-2022 MCV (RBC) [Entitic vol] 90.7 fL 81-99 [facility] Hematocrit Auto (Bld) [Volum e fraction]Ordered By: Kianna Izquierdo on 06-13-2022 Hematocrit (Bld) [Volume fraction] 30.4 % 37-47 [facility] Laboratory - Chemistry and C hemistry - challengeOrdered By: Kianna Izquierdo on 06-13-2022 CO2 [Moles/Vol] 32.0 mmol/L 21.0-32.0 [facility] Urea nitrogen/Creatinine [Mass ratio] 9.7 mg/mg 10-20 [facility] Laboratory - Hematology and Cell countsOrdered By: Kianna Izquierdo on 06-13-2022 Erythrocyte distribution width (RBC) [Entitic vol] 51.8 fL 35.1-43.9 [facility] Erythrocyte distribution width (RBC) [Ratio] 15.6 % 11.6-14.6 [facility] MCH (RBC) [Entitic mass] 27.8 pg 27.0-32.0 [facility] MCHC Auto (RBC) [Mass/Vol]Or dered By: Kianna Izquierdo on 06-13-2022 MCHC (RBC) [Mass/Vol] 30.6 g/dL 32-36 [facility] No Panel InformationOrdered By: Kianna Izquierdo on 06-13-2022 Estimated GFR (MDRD) Amer 121 mL/min >60 [facility] Comment on above: GFR Calc Estimated GFR (MDRD) Non-Af Amer 100 mL/min >60 [facility] Comment on above: Non- GFR Calc Platelets bldOrdered By: Apple Izquierdo on 06-13-2022 Platelets (Bld) [#/Vol] 624 10*3/uL 150-450 [facility] Serum or plasma calcium carlie urement (mass/volume)Ordered By: Kianna Izquierdo on 06-13-2022 Calcium [Mass/Vol] 8.7 mg/dL 8.5-10.1 [facility] Serum or plasma creatinine m easurement (mass/volume)Ordered By: Kianna Izquierdo on 06-13-2022 Creatinine [Mass/Vol] 0.62 mg/dL 0.55-1.02 [facility] Comment on above: The validity of the calculated GFR & GFRAA in patients over 70 years has not been determined. Clinical correlation is essential. Serum or plasma urea nitroge n measurement (mass/volume)Ordered By: Kianna Izquierdo on 06-13-2022 Urea nitrogen [Mass/Vol] 6 mg/dL 7-18 [facility] Thin prep Papanicolaou smear with manual screeningOrdered By: Kianna Izquierdo on 06-13-2022 Thin prep Papanicolaou smear with manual screening 6 5-15 [facility] Basophil percentageOrdered B y: Kianna Izquierdo on 06-09-2022 Chloride [Moles/Vol] 101 mmol/L 98-107 [facility] Glucose [Mass/Vol] 111 mg/dL 74-106 [facility] Comment on above: Fasting Glucose resu lt from 100 to 125 mg/dL suggests IMPAIRED HOMEOSTASIS per A.D.A. criteria. Potassium [Moles/Vol] 3.1 mmol/L 3.5-5.1 [facility] Sodium [Moles/Vol] 139 mmol/L 136-145 [facility] WBC (Bld) [#/Vol] 11.4 10*3/uL 4.4-11.0 [facility] Blood erythrocytes count (nu mber/volume)Ordered By: Kianna Izquierdo on 06-09-2022 RBC (Bld) [#/Vol] 3.30 10*6/uL 4.2-5.4 [facility] Blood hemoglobin measurement (mass/volume)Ordered By: Kianna Izquierdo on 06-09-2022 Hemoglobin (Bld) [Mass/Vol] 9.2 g/dL 12.0-15.0 [facility] Blood platelet mean volumeOr dered By: Kianna Izquierdo on 06-09-2022 Platelet mean volume (Bld) [Entitic vol] 9.9 fL 6.2-12.0 [facility] Determination of erythrocyte mean corpuscular volume (MCV)Ordered By: Kianna Izquierdo on 06-09-2022 MCV (RBC) [Entitic vol] 89.7 fL 81-99 [facility] Hematocrit Auto (Bld) [Volum e fraction]Ordered By: Kianna Izquierdo on 06-09-2022 Hematocrit (Bld) [Volume fraction] 29.6 % 37-47 [facility] Laboratory - Chemistry and C hemistry - challengeOrdered By: Kianna Izquierdo on 06-09-2022 CO2 [Moles/Vol] 33.0 mmol/L 21.0-32.0 [facility] Urea nitrogen/Creatinine [Mass ratio] 12.0 mg/mg 10-20 [facility] Laboratory - Hematology and Cell countsOrdered By: Kianna Izquierdo on 06-09-2022 Erythrocyte distribution width (RBC) [Entitic vol] 50.8 fL 35.1-43.9 [facility] Erythrocyte distribution width (RBC) [Ratio] 15.5 % 11.6-14.6 [facility] MCH (RBC) [Entitic mass] 27.9 pg 27.0-32.0 [facility] Auto (RBC) [Mass/Vol]Or dered By: Kianna Izquierdo on 06-09-2022 MCHC (RBC) [Mass/Vol] 31.1 g/dL 32-36 [facility] No Panel InformationOrdered By: Kianna Izquierdo on 06-09-2022 Estimated GFR (MDRD) Amer 130 mL/min >60 [facility] Comment on above: GFR Calc Estimated GFR (MDRD) Non-Af Amer 108 mL/min >60 [facility] Comment on above: Non- GFR Calc Platelets bldOrdered By: Pet er Ramon on 06-09-2022 Platelets (Bld) [#/Vol] 502 10*3/uL 150-450 [facility] Serum or plasma calcium carlie urement (mass/volume)Ordered By: Kianna Izquierdo on 06-09-2022 Calcium [Mass/Vol] 8.2 mg/dL 8.5-10.1 [facility] Serum or plasma creatinine m easurement (mass/volume)Ordered By: Kianna Izquierdo on 06-09-2022 Creatinine [Mass/Vol] 0.58 mg/dL 0.55-1.02 [facility] Comment on above: The validity of the calculated GFR & GFRAA in patients over 70 years has not been determined. Clinical correlation is essential. Serum or plasma urea nitroge n measurement (mass/volume)Ordered By: Kianna Izquierdo on 06-09-2022 Urea nitrogen [Mass/Vol] 7 mg/dL 7-18 [facility] Thin prep Papanicolaou smear with manual screeningOrdered By: Kianna Izquierdo on 06-09-2022 Thin prep Papanicolaou smear with manual screening 5 5-15 [facility] COVID-19on 06-05-2022 SARS-CoV-2 (COVID-19) RNA KAMLA+probe Ql (Unsp spec) Not detected Not Detected [facility] Comment on above: Not Detected. Expected result: Not Detected _ Method: Real-time, RT-PCR Negative results do not preclude SARS-CoV-2 infection and should not be used as the sole basis for treatment or other patient management decisions. This assay was developed by [employer] and distributed under an Emergency Use Authorization (EUA) granted by the FDA for the qualitative detection of SARS-CoV-2 nucleic acid. Provider and patient fact sheets can be found at https://www.[facility].gov/media/975390/download and https://www.[employer].gov/media/248219/download. Test Performed by [facility] [employer] [facility], [address] [place] [id number] [place] [address] [id number] 06-05-2022 SARS-CoV-2 (COVID-19) RNA KAMLA+probe Ql (Unsp spec) SARS-CoV-2 --> Status: F Not Detected. Expected result: Not Detected _ Method: Real-time, RT-PCR Negative results do not preclude SARS-CoV-2 infection and should not be used as the sole basis for treatment or other patient management decisions. This assay was developed by [employer] and distributed under an Emergency Use Authorization (EUA) granted by the FDA for the qualitative detection of SARS-CoV-2 nucleic acid. Provider and patient fact sheets can be found at https://www.[facility].gov/de pio/446351/download and https://www.[employer].gov/de pio/226215/download. Expected result: Not Detected _ Method: Real-time, RT-PCR Negative results do not preclude SARS-CoV-2 infection and should not be used as the sole basis for treatment or other patient management decisions. This assay was developed by [employer] and distributed under an Emergency Use Authorization (EUA) granted by the FDA for the qualitative detection of SARS-CoV-2 nucleic acid. Provider and patient fact sheets can be found at https://www.[facility].gov/de pio/834469/download and https://www.[employer].gov/de pio/987932/download. Normal [facility] Comment on above: Performed By: #### B MP3, PT/AP, HEMOG, TROPN, LACT3, ETOH4 #### [address] [address] Basic Metabolic Panelon 05-15 Anion gap [Moles/Vol] 1 mmol/L Low 3-13 [facility] Comment on above: Performed By: #### B MP3, PT/AP, HEMOG, TROPN, LACT3, ETOH4 #### [place] [address], [place] Calcium [Mass/Vol] 8.2 mg/dL Low 8.4-10.4 [facility] Comment on above: Performed By: #### B MP3, PT/AP, HEMOG, TROPN, LACT3, ETOH4 #### [place] [address], [place] CO2 [Moles/Vol] 35 mmol/L High 22-30 [facility] Comment on above: Performed By: #### B MP3, PT/AP, HEMOG, TROPN, LACT3, ETOH4 #### [place] [address], [place] Glucose [Mass/Vol] 145 mg/dL High 70-100 [facility] Comment on above: Performed By: #### B MP3, PT/AP, HEMOG, TROPN, LACT3, ETOH4 #### [place] [address] [place], [place] Urea nitrogen [Mass/Vol] 14 mg/dL Normal 9-20 [facility] Comment on above: Performed By: #### B MP3, PT/AP, HEMOG, TROPN, LACT3, ETOH4 #### [place] [address], [place] Creatinine [Mass/Vol] 0.66 mg/dL Normal 0.52-1.25 [facility] Comment on above: Performed By: #### B MP3, PT/AP, HEMOG, TROPN, LACT3, ETOH4 #### [place] [address], [place] GFR/1.73 sq M.predicted among blacks MDRD (S/P/Bld) [Vol rate/Area] mL/min/{1.73_m2} Normal >60 [facility] Comment on above: Performed By: #### B MP3, PT/AP, HEMOG, TROPN, LACT3, ETOH4 #### [place] [address], [place] GFR/1.73 sq M.predicted among non-blacks MDRD (S/P/Bld) [Vol rate/Area] 87.7 mL/min/{1.73_m2} Normal >60 [facility] Comment on above: Result Comment: KDIG O [...] MP3, PT/AP, HEMOG, TROPN, LACT3, ETOH4 #### [address] Chloride [Moles/Vol] 101 mmol/L Normal 98-107 [facility] Comment on above: Performed By: #### B MP3, PT/AP, HEMOG, TROPN, LACT3, ETOH4 #### [address] Potassium [Moles/Vol] 3.5 mmol/L Normal 3.5-5.1 [facility] Comment on above: Performed By: #### B MP3, PT/AP, HEMOG, TROPN, LACT3, ETOH4 #### [address] Sodium [Moles/Vol] 138 mmol/L Normal 135-145 [facility] Comment on above: Performed By: #### B MP3, PT/AP, HEMOG, TROPN, LACT3, ETOH4 #### [address] Anion gap [Moles/Vol] 1 mmol/L Low 3 - 13 mmol/L [facility] Calcium [Mass/Vol] 8.2 mg/dL Low 8.4 - 10. 4 mg/dL [facility] Chloride [Moles/Vol] 101 mmol/L 98 - 10 7 mmol/L [facility] CO2 [Moles/Vol] 35 mmol/L High 22 - 30 mmol/L [facility] Creatinine [Mass/Vol] 0.66 mg/dL 0.52 - 1.25 mg/dL [facility] eGFR mL/min 60 - P INF mL/min [facility] EGFR IF NonAfrican [place] 87.7 mL/min 60 - PINF mL/min [facility] Comment on above: KDIGO guidelines pro vide [...] 145 mg/dL High 70 - 100 mg/dL [facility] Interpretation and review of laboratory results Abnormal [facility] Potassium [Moles/Vol] 3.5 mmol/L 3.5 - 5.1 mmol/L [facility] Sodium [Moles/Vol] 138 mmol/L 135 - 145 mmol/L [facility] Urea nitrogen (BldV) [Mass/Vol] 14 mg/dL 9 - 20 mg/dL [facility] [address] [facility] CBC with Auto Differentialon 06-03-2022 Absolute [...] vol] 8.1 fL 7.4 - 12.4 fL [facility] Comment on above: MPV is a calculated measurement using platelet volume ratio. Platelets (Bld) [#/Vol] 249 10*3/uL 140 - 440 10*3/uL [facility] RBC (Bld) [#/Vol] 2.95 10*6/uL Low 3.80 - 5.2 0 10*6/uL [facility] WBC (Bld) [#/Vol] 10.3 10*3/uL 3.6 - 10.7 10*3/uL [facility] Test Performed by [facility] [id number] [place] [address] - [facility] Hemogram w/ Autodiffon 06-03 Abs Baso Cnt 0.1 10*3/uL Normal 0.0-0.2 [facility] Comment on above: Performed By: #### B MP3, HEMDF #### [facility] [address] [place] [address] Abs Neutrophile Cnt 7.8 10*3/uL High 1.8-7.0 [facility] Comment on above: Performed By: #### B MP3, HEMDF #### [place] [address] [place] [address] Basophils/100 WBC (Bld) 0.8 % Normal 0.0-2.0 [facility] Comment on above: Performed By: #### B MP3, HEMDF #### [facility] [address] [place] [address] Eosinophils (Bld) [#/Vol] 0.5 10*3/uL Normal 0.0-0.5 [facility] Comment on above: Performed By: #### B MP3, HEMDF #### [facility] [address] [place] [address] Eosinophils/100 WBC (Bld) 4.5 % Normal 1.0-6.0 [facility] Comment on above: Performed By: #### B MP3, HEMDF #### [facility] [address] [place] [address] Erythrocyte distribution width (RBC) [Ratio] 15.8 % High 11.5-14.5 [facility] Comment on above: Performed By: #### B MP3, HEMDF #### [facility] [address] [place] [address] Granulocytes/100 WBC (Bld) 75.6 % Normal 40.0-80.0 [facility] Comment on above: Performed By: #### B MP3, HEMDF #### [facility] [address] [place] [address] Hematocrit (Bld) [Volume fraction] 25.4 % Low 35.0-47.0 [facility] Comment on above: Performed By: #### B MP3, HEMDF #### [facility] [address], [place] Hemoglobin (Bld) [Mass/Vol] 8.3 g/dL Low 11.7-16.0 [facility] Comment on above: Performed By: #### B MP3, HEMDF #### [place] [address] [place], [place] Lymphocytes (Bld) [#/Vol] 1.3 10*3/uL Normal 1.0-4.3 [facility] Comment on above: Performed By: #### B MP3, HEMDF #### [place] [address], [place] Lymphocytes/100 WBC (Bld) 12.3 % Low 20.0-40.0 [facility] Comment on above: Performed By: #### B MP3, HEMDF #### [place] [address] [place], [place] MCH (RBC) [Entitic mass] 28.1 pg Normal 26.0-34.0 [facility] Comment on above: Performed By: #### B MP3, HEMDF #### [place] [address], [place] MCHC 32.6 % Normal 32.0-36.0 [facility] Comment on above: Performed By: #### B MP3, HEMDF #### [place] [address] [place], [place] MCV (RBC) [Entitic vol] 86.3 fL Normal 79.0-98.0 [facility] Comment on above: Performed By: #### B MP3, HEMDF #### [place] [address] [place], [place] Monocytes (Bld) [#/Vol] 0.7 10*3/uL Normal 0.0-0.8 [facility] Comment on above: Performed By: #### B MP3, HEMDF #### [place] [address] [place], [place] Monocytes/100 WBC (Bld) 6.8 % Normal 2.0-10.0 [facility] Comment on above: Performed By: #### B MP3, HEMDF #### [facility] [address], [place] Platelet mean volume (Bld) [Entitic vol] 8.1 fL Normal 7.4-12.4 [facility] Comment on above: Result Comment: MPV is a calculated measurement using platelet volume ratio. Performed By: #### B MP3, HEMDF #### [facility] [address], [place] Platelets (Bld) [#/Vol] 249 10*3/uL Normal 140-440 [facility] Comment on above: Performed By: #### B MP3, HEMDF #### [facility] [address], [place] RBC (Bld) [#/Vol] 2.95 10*6/uL Low 3.80-5.20 [facility] Comment on above: Performed By: #### B MP3, HEMDF #### [facility] [address], [place] WBC (Bld) [#/Vol] 10.3 10*3/uL Normal 3.6-10.7 [facility] Comment on above: Performed By: #### B MP3, HEMDF #### [facility] [address], [place] VL DUP LOWER EXTREMITY VENOU S BILATERALon 06-02-2022 [facility] ----- Lower Extremity Venous Duplex Report Patient [place], : 1950 Study 06/02/2022 Name: Andre (71yrs) Date: Age: 71 Account: [id number] Gender: F Loc: 6118 BP: Ordering Physician: Radha Moon [employer]: Liliana Mejia RVT Interpreting Physician: Kwesi Gooden MD ----- Location: [facility] ----- Indications: Lower extremity pain and [...] supine position. Images were obtained using a [employer] vascular ultrasound machine. ----- Venous flow and [...] [facility] Kwesi Gooden MD - 06/02/2022 [facility] ----- Lower Extremity Venous Duplex Report Patient [place] : 1950 Study 06/02/2022 Name: Andre (71yrs) Date: Age: 71 Account: [id number] Gender: F Loc: 6118 BP: Ordering Physician: Radha Moon [employer]: MARISSA JohnsT Interpreting Physician: Kwesi Gooden MD ----- Location: [facility] ----- Indications: Lower extremity pain and [...] supine position. Images were obtained using a [employer] vascular ultrasound machine. ----- Venous flow and [...] + + + (more content not included)... [employer] Work Phone: Radiology Study observation (narrative) [employer] Phone: VL DUP LOWER EXTREMITY VENOU S BILATERALOrdered By: Kwesi Gooden on 06-02-2022 [employer] Phone: VL Venous Duplex US Lower Ex t Bilateralon 06-02-2022 VL Venous Duplex US Lower Ext Bilateral Patient Name: ANDRE BLANCA Ultrasound ACCESSION EXAM DATE/TIME PROCEDURE ORDERING PROVIDER [id number] 06/02/2022 10:59 EDT VL Venous Duplex US [id number] -RADHA MOON Lower Ext Bilateral CPT code 81698 Reason For Exam (VL Venous Duplex US Lower Ext Bilateral) edema Report [facility] ----- Lower Extremity Venous Duplex Report Patient LinwoodDOB: 1950 Study 06/02/2022 Name: Andre (71yrs) Date: Age: 71 Account: [id number] Gender: F Loc: 6118 BP: Ordering Physician: Radha Moon [employer]: MARISSA JohnsT Interpreting Physician: Kwesi Gooden MD ----- Location: [facility] ----- Indications: Lower extremity pain and [...] supine position. Images were obtained using a [employer] vascular ultrasound machine. ----- Ultrasound Report Venous [...] ------+ ------+ (more content not included)... Normal [facility] Basic Metabolic Panelon 10- Calcium [Mass/Vol] 8.7 mg/dL Normal 8.4-10.4 [facility] Comment on above: Performed By: #### H HERNÁN, BMP3M, LACT3 #### [facility] [employer] [address], [place] Anion gap [Moles/Vol] 4 mmol/L Normal 3-13 [facility] Comment on above: Performed By: #### Ana Rosa JIM, BMP3M, LACT3 #### [facility] [employer] [facility] [address], [place] CO2 [Moles/Vol] 31 mmol/L High 22-30 [facility] Comment on above: Performed By: #### Ana Rosa EMOG, BMP3M, LACT3 #### [facility] [employer] [facility] [address], [place] Creatinine [Mass/Vol] 0.78 mg/dL Normal 0.52-1.25 [facility] Comment on above: Performed By: #### Ana Rosa JIM, BMP3M, LACT3 #### [facility] [employer] [facility] [address], [place] GFR/1.73 sq M.predicted among blacks MDRD (S/P/Bld) [Vol rate/Area] 87.5 mL/min/{1.73_m2} Normal >60 [facility] Comment on above: Performed By: #### H EMOG, BMP3M, LACT3 #### [facility] [address] [place] [address] GFR/1.73 sq M.predicted among non-blacks MDRD (S/P/Bld) [Vol rate/Area] 75.5 mL/min/{1.73_m2} Normal >60 [facility] Comment on above: Result Comment: KDIG O [...] By: #### H EMOG, BMP3M, LACT3 #### [facility] [address] [place] [address] Glucose [Mass/Vol] 155 mg/dL High 70-100 [facility] Comment on above: Performed By: #### H EMOG, BMP3M, LACT3 #### [facility] [address] [place] [address] Urea nitrogen [Mass/Vol] 14 mg/dL Normal 9-20 [facility] Comment on above: Performed By: #### H EMOG, BMP3M, LACT3 #### [facility] [address] [place] [address] Chloride [Moles/Vol] 102 mmol/L Normal 98-107 [facility] Comment on above: Performed By: #### H EMOG, BMP3M, LACT3 #### [facility] [address] [place] [address] Potassium [Moles/Vol] 4.1 mmol/L Normal 3.5-5.1 [facility] Comment on above: Performed By: #### H EMOG, BMP3M, LACT3 #### [facility] [employer] [facility] [address] [place] [address] Sodium [Moles/Vol] 137 mmol/L Normal 135-145 [facility] Comment on above: Performed By: #### H EMOG, BMP3M, LACT3 #### [facility] [employer] [facility] [address] [place] [address] Basic Metabolic Panel w/ Ref nick to MGon 06-01-2022 Anion gap [Moles/Vol] 4 mmol/L 3 - 13 mmol/L [facility] Work Phone: Calcium [Mass/Vol] 8.7 mg/dL 8.4 - 10. 4 mg/dL [facility] Work Phone: Chloride [Moles/Vol] 102 mmol/L 98 - 10 7 mmol/L [facility] Work Phone: CO2 [Moles/Vol] 31 mmol/L High 22 - 30 mmol/L [facility] Work Phone: Creatinine [Mass/Vol] 0.78 mg/dL 0.52 - 1.25 mg/dL [facility] Work Phone: EGFR IF NonAfrican Uruguayan 75.5 mL/min 60 - PINF mL/min [facility] Work Phone: Comment on above: KDIGO guidelines [...] rate/Area] 87.5 mL/min/{1.73_m2} 60 - PINF mL/min [employer] Work Phone: Glucose [Mass/Vol] 155 mg/dL High 70 - 100 mg/dL [employer] Work Phone: Interpretation and review of laboratory results Abnormal [employer] Work Phone: [phone] Potassium [Moles/Vol] 4.1 mmol/L 3.5 - 5.1 mmol/L [employer] Work Phone: Sodium [Moles/Vol] 137 mmol/L 135 - 145 mmol/L [employer] Work Phone: Urea nitrogen (BldV) [Mass/Vol] 14 mg/dL 9 - 20 mg/dL [facility] Phone: Test Performed by [id number] [place], [place] [address]I-[employer] [facility] LAB [facility] Work Phone: CBCon 06-01-2022 Hematocrit (Bld) [Volume fraction] 30.0 % Low 35.0 - 47.0 % [facility] Phone: Hemoglobin (Bld) [Mass/Vol] 9.6 g/dL Low 11.7 - 16.0 g/dL [facility] Phone: Interpretation and review of laboratory results Abnormal [employer] Phone: MCH (RBC) [Entitic mass] 27.0 pg 26.0 - 34.0 pg [facility] Phone: 222 MCHC (RBC) [Mass/Vol] 32.0 % 32.0 - 36.0 % [facility] Phone: MCV (RBC) [Entitic vol] 84.4 fL 79.0 - 98.0 fL [employer] Phone: Platelet distribution width (Bld) [Ratio] 15.4 % High 11.5 - 14.5 % [facility] Phone: [phone] Platelet mean volume (Bld) [Entitic vol] 8.1 fL 7.4 - 12.4 fL [employer] Work Phone: Comment on above: MPV is a calculated measurement using platelet volume ratio. Platelets (Bld) [#/Vol] 256 10*3/uL 140 - 440 10*3/uL [employer] Work Phone: RBC (Bld) [#/Vol] 3.55 10*6/uL Low 3.80 - 5.2 0 10*6/uL [employer] Work Phone: WBC (Bld) [#/Vol] 12.2 10*3/uL High 3.6 - 10.7 10*3/uL [employer] Work Phone: Test Performed by [facility], [address] [place] [id number] [facility] [employer] Work Phone: CR Foot Complete 3+ Views Le fton 06-01-2022 CR Foot Complete 3+ Views Left Patient Name: ANDRE BLANCA Diagnostic Radiology ACCESSION EXAM DATE/TIME PROCEDURE ORDERING PROVIDER [id number] 05/31/2022 23:52 EDT CR Foot Complete 3+ [id number] -LUIS, Views Left KORTNIE CPT code 10107 Reason For Exam (CR Foot Complete 3+ [...] Transcribed Date and Time: 05/31/2022 11:51 Normal [facility] Hemogramon 06-01-2022 Erythrocyte distribution width (RBC) [Ratio] 15.4 % High 11.5-14.5 [facility] Comment on above: Performed By: #### H EMOG, BMP3M, LACT3 #### [address] Hematocrit (Bld) [Volume fraction] 30.0 % Low 35.0-47.0 [facility] Comment on above: Performed By: #### H EMOG, BMP3M, LACT3 #### [address] Hemoglobin (Bld) [Mass/Vol] 9.6 g/dL Low 11.7-16.0 [facility] Comment on above: Performed By: #### H EMOG, BMP3M, LACT3 #### [address] MCH (RBC) [Entitic mass] 27.0 pg Normal 26.0-34.0 [facility] Comment on above: Performed By: #### H EMOG, BMP3M, LACT3 #### [address] MCHC 32.0 % Normal 32.0-36.0 [facility] Comment on above: Performed By: #### H EMOG, BMP3M, LACT3 #### [address] MCV (RBC) [Entitic vol] 84.4 fL Normal 79.0-98.0 [facility] Comment on above: Performed By: #### H EMOG, BMP3M, LACT3 #### [address] Platelet mean volume (Bld) [Entitic vol] 8.1 fL Normal 7.4-12.4 [facility] Comment on above: Result Comment: MPV is a calculated measurement using platelet volume ratio. Performed By: #### H EMOG, BMP3M, LACT3 #### [place] [address] [place] [address] Platelets (Bld) [#/Vol] 256 10*3/uL Normal 140-440 [facility] Comment on above: Performed By: #### H EMOG, BMP3M, LACT3 #### [address] [place] [place], [place] RBC (Bld) [#/Vol] 3.55 10*6/uL Low 3.80-5.20 [facility] Comment on above: Performed By: #### H EMOG, BMP3M, LACT3 #### [address] WBC (Bld) [#/Vol] 12.2 10*3/uL High 3.6-10.7 [facility] Comment on above: Performed By: #### H EMOG, BMP3M, LACT3 #### [address], [place] Lactic Acidon 06-01-2022 Lactate [Moles/Vol] 1.6 mmol/L Normal 0.7-2.0 [facility] Comment on above: Performed By: #### H EMOG, BMP3M, LACT3 #### [address] Lactate [Moles/Vol] 1.6 mmol/L 0.7 - 2. 0 mmol/L [facility] Work Phone: Test Performed by [id number] [place] [address] LAB [facility] Work Phone: OPERATIVE REPORTon 2 Ordered by an unspecified provider. [facility] Op Noteon 06-01-2022 Op Note [facility] GENER[facility] SURGERY [address] [facility] [address] Dept: [phone] Loc: [phone] Operative Report Patient Name: Andre Blanca Date of : 1950 Date of Surgery: 06/01/22 Pre-operative diagnosis: Left olecranon fracture Post-operative diagnosis: Same Procedure(s): Open reduction internal fixation of left olecranon fracture (CPT 20837) Surgeon: Neto Jacobsen M.D. 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 and Geronimo Rodriguez M.D. [...] as well as medical complications such as VT, stroke, PE, DVT, and even . Pt [...] Jacobsen MD at 06/01/22, 11:35 AM Normal [facility] Vit D 25-OH, Totalon 022 Vit D 25-OH, Total 18 ng/mL Low 30-100 [facility] Comment on above: Result Comment: Ther apy is based on measurement of Total 25-OHD with the following classification levels: Less than 20 ng/mL: Indicative of Vit D deficiency 20-30 ng/mL: Suggests Vit D insufficiency Optimal: Greater than or equal to 30 ng/mL Test performed by [employer] Competitive Immunoassay, measuring Total Vitamin D, not individual fractions. Performed By: #### B MP3, PT/AP, HEMOG, TROPN, LACT3, ETOH4 #### [address] [address] Vitamin D 25 Hydroxyon 06-01 Interpretation and review of laboratory results Abnormal [facility] Vit D, 25-Hydroxy 18 ng/mL Low 30 - 100 ng/mL [facility] Comment on above: Therapy is based on measurement of Total 25-OHD with the following classification levels: Less than 20 ng/mL: Indicative of Vit D deficiency 20-30 ng/mL: Suggests Vit D insufficiency Optimal: Greater than or equal to 30 ng/mL Test performed by [employer] Competitive Immunoassay, measuring Total Vitamin D, not individual fractions. Test Performed by [facility] [employer] [facility], [address], [address] LAB [facility] Basic Metabolic Panelon 10- Anion gap [Moles/Vol] 7 mmol/L Normal 3-13 [facility] Comment on above: Performed By: #### B MP3, PT/AP, HEMOG, TROPN, LACT3, ETOH4 #### [address] [place], [place] Calcium [Mass/Vol] 8.7 mg/dL Normal 8.4-10.4 [facility] Comment on above: Performed By: #### B MP3, PT/AP, HEMOG, TROPN, LACT3, ETOH4 #### [address] [place], [place] CO2 [Moles/Vol] 29 mmol/L Normal 22-30 [facility] Comment on above: Performed By: #### B MP3, PT/AP, HEMOG, TROPN, LACT3, ETOH4 #### [address] [place], [place] Creatinine [Mass/Vol] 0.63 mg/dL Normal 0.52-1.25 [facility] Comment on above: Performed By: #### B MP3, PT/AP, HEMOG, TROPN, LACT3, ETOH4 #### [address] [place] [place], [place] GFR/1.73 sq M.predicted among blacks MDRD (S/P/Bld) [Vol rate/Area] mL/min/{1.73_m2} Normal >60 [facility] Comment on above: Performed By: #### B MP3, PT/AP, HEMOG, TROPN, LACT3, ETOH4 #### [place] [address], [place] GFR/1.73 sq M.predicted among non-blacks MDRD (S/P/Bld) [Vol rate/Area] 89.0 mL/min/{1.73_m2} Normal >60 [facility] Comment on above: Result Comment: KDIG O [...] MP3, PT/AP, HEMOG, TROPN, LACT3, ETOH4 #### [address] Glucose [Mass/Vol] 112 mg/dL High 70-100 [facility] Comment on above: Performed By: #### B MP3, PT/AP, HEMOG, TROPN, LACT3, ETOH4 #### [address] Urea nitrogen [Mass/Vol] 11 mg/dL Normal 9-20 [facility] Comment on above: Performed By: #### B MP3, PT/AP, HEMOG, TROPN, LACT3, ETOH4 #### [address] Potassium [Moles/Vol] 3.8 mmol/L Normal 3.5-5.1 [facility] Comment on above: Performed By: #### B MP3, PT/AP, HEMOG, TROPN, LACT3, ETOH4 #### [address] Sodium [Moles/Vol] 139 mmol/L Normal 135-145 [facility] Comment on above: Performed By: #### B MP3, PT/AP, HEMOG, TROPN, LACT3, ETOH4 #### [address] Chloride [Moles/Vol] 102 mmol/L Normal 98-107 [facility] Comment on above: Performed By: #### B MP3, PT/AP, HEMOG, TROPN, LACT3, ETOH4 #### [address] [address] Basic Metabolic Panel w/ Ref nick to [...] P INF mL/min [facility] EGFR IF NonAfrican Uruguayan 89.0 mL/min 60 - PINF mL/min [facility] Comment on above: KDIGO guidelines pro vide [...] - 20 mg/dL [facility] Test Performed by [facility] [employer] [facility], [address] [place] [address] [facility] CBC with Auto Differentialon 05-31-2022 [...] 3.93 10*6/uL 3.80 - 5.2 0 10*6/uL [facility] WBC (Bld) [#/Vol] 11.7 10*3/uL High 3.6 - 10.7 10*3/uL [facility] Test Performed by [facility], [address] [place] [address] [facility] 1 or 2 Viewson CR Pelvis 1 or 2 Views Patient Name: ANDRE BLANCA Diagnostic Radiology ACCESSION EXAM DATE/TIME PROCEDURE ORDERING PROVIDER [id number] 05/31/2022 20:59 EDT CR Pelvis 1 or 2 Views [id number] -GILLIAN SYKES CPT code 36418 Reason For Exam (CR Pelvis 1 or [...] Transcribed Date and Time: 05/31/2022 8:53 Normal [facility] Hemogram w/ Autodiffon 05-31 Abs Baso Cnt 0.0 10*3/uL Normal 0.0-0.2 [facility] Comment on above: Performed By: #### B MP3, PT/AP, HEMOG, TROPN, LACT3, ETOH4 #### [address] [address] Abs Neutrophile Cnt 9.3 10*3/uL High 1.8-7.0 [facility] Comment on above: Performed By: #### B MP3, PT/AP, HEMOG, TROPN, LACT3, ETOH4 #### [address] [place] [place], [place] Basophils/100 WBC (Bld) 0.4 % Normal 0.0-2.0 [facility] Comment on above: Performed By: #### B MP3, PT/AP, HEMOG, TROPN, LACT3, ETOH4 #### [address] [place] [place], [place] Eosinophils (Bld) [#/Vol] 0.3 10*3/uL Normal 0.0-0.5 [facility] Comment on above: Performed By: #### B MP3, PT/AP, HEMOG, TROPN, LACT3, ETOH4 #### [address] [place], [place] Eosinophils/100 WBC (Bld) 2.3 % Normal 1.0-6.0 [facility] Comment on above: Performed By: #### B MP3, PT/AP, HEMOG, TROPN, LACT3, ETOH4 #### [address] Erythrocyte distribution width (RBC) [Ratio] 15.4 % High 11.5-14.5 [facility] Comment on above: Performed By: #### B MP3, PT/AP, HEMOG, TROPN, LACT3, ETOH4 #### [address] Granulocytes/100 WBC (Bld) 79.6 % Normal 40.0-80.0 [facility] Comment on above: Performed By: #### B MP3, PT/AP, HEMOG, TROPN, LACT3, ETOH4 #### [address] Hematocrit (Bld) [Volume fraction] 33.6 % Low 35.0-47.0 [facility] Comment on above: Performed By: #### B MP3, PT/AP, HEMOG, TROPN, LACT3, ETOH4 #### [place], [place] Hemoglobin (Bld) [Mass/Vol] 10.9 g/dL Low 11.7-16.0 [facility] Comment on above: Performed By: #### B MP3, PT/AP, HEMOG, TROPN, LACT3, ETOH4 #### [place] [address], [place] Lymphocytes (Bld) [#/Vol] 1.3 10*3/uL Normal 1.0-4.3 [facility] Comment on above: Performed By: #### B MP3, PT/AP, HEMOG, TROPN, LACT3, ETOH4 #### [address] Lymphocytes/100 WBC (Bld) 11.2 % Low 20.0-40.0 [facility] Comment on above: Performed By: #### B MP3, PT/AP, HEMOG, TROPN, LACT3, ETOH4 #### [place], [place] MCH (RBC) [Entitic mass] 27.8 pg Normal 26.0-34.0 [facility] Comment on above: Performed By: #### B MP3, PT/AP, HEMOG, TROPN, LACT3, ETOH4 #### [place] [place] MCHC 32.4 % Normal 32.0-36.0 [facility] Comment on above: Performed By: #### B MP3, PT/AP, HEMOG, TROPN, LACT3, ETOH4 #### [address] MCV (RBC) [Entitic vol] 85.7 fL Normal 79.0-98.0 [facility] Comment on above: Performed By: #### B MP3, PT/AP, HEMOG, TROPN, LACT3, ETOH4 #### [place] [place], [place] Monocytes (Bld) [#/Vol] 0.8 10*3/uL Normal 0.0-0.8 [facility] Comment on above: Performed By: #### B MP3, PT/AP, HEMOG, TROPN, LACT3, ETOH4 #### [facility] [address], [place] Monocytes/100 WBC (Bld) 6.5 % Normal 2.0-10.0 [facility] Comment on above: Performed By: #### B MP3, PT/AP, HEMOG, TROPN, LACT3, ETOH4 #### [place], [place] Platelet mean volume (Bld) [Entitic vol] 7.9 fL Normal 7.4-12.4 [facility] Comment on above: Result Comment: MPV is a calculated measurement using platelet volume ratio. Performed By: #### B MP3, PT/AP, HEMOG, TROPN, LACT3, ETOH4 #### [place], [place] Platelets (Bld) [#/Vol] 253 10*3/uL Normal 140-440 [facility] Comment on above: Performed By: #### B MP3, PT/AP, HEMOG, TROPN, LACT3, ETOH4 #### [place], [place] RBC (Bld) [#/Vol] 3.93 10*6/uL Normal 3.80-5.20 [facility] Comment on above: Performed By: #### B MP3, PT/AP, HEMOG, TROPN, LACT3, ETOH4 #### [place] [place], [place] WBC (Bld) [#/Vol] 11.7 10*3/uL High 3.6-10.7 [facility] Comment on above: Performed By: #### B MP3, PT/AP, HEMOG, TROPN, LACT3, ETOH4 #### [place], [place] Op Noteon 05-31-2022 Op Note Operative Note [...] to normal structures that can lead to alf problems of pain or dysfunction, wound healing [...] patient's ASA was verified by the nurse global sales manager and the anesthesia staff. Fire risk was [...] the gluteus medius was visualized and a Anu retractor was placed underneath this muscle belly. [...] placed within (more content not included)... Normal [facility] XR FOOT LEFT (MIN 3 VIEWS)on 05-31-2022 Patient Name: ANDRE BLANCA Diagnostic Radiology ACCESSION EXAM DATE/TIME PROCEDURE ORDERING PROVIDER [id number] 05/31/2022 23:52 EDT CR Foot Complete 3+ [id number] -BROSCHINSKY, Views Left KORTNIE CPT code 23061 Reason For Exam (CR Foot Complete 3+ [...] WENDELL Transcribed Date and Time: 05/31/2022 11:51 [facility] Luis Ochoa MD - 05/31/2022 [id number] Diagnostic Radiology ACCESSION EXAM DATE/TIME PROCEDURE ORDERING PROVIDER [id number] 05/31/2022 23:52 EDT CR Foot Complete 3+ [id number] -BROSCHINSKY, Views Left KORTNIE CPT code 83961 Reason For Exam (CR Foot Complete 3+ [...] WENDELL Transcribed Date and Time: 05/31/2022 11:51 [facility] Work Phone: [facility] Work Phone: Radiology Study observation (narrative) [facility] Work Phone: XR PELVIS (1-2 VW)on Patient Name: ANDRE BLANCA Diagnostic Radiology ACCESSION EXAM DATE/TIME PROCEDURE ORDERING PROVIDER [id number] 05/31/2022 20:59 EDT CR Pelvis 1 or 2 Views [id number] -GILLIAN SYKES CPT code 69532 Reason For Exam (CR Pelvis 1 or [...] R Transcribed Date and Time: 05/31/2022 8:53 [facility] Troy Rubin MD - 05/31/2022 Patient Name: ANDRE BLANCA Diagnostic Radiology ACCESSION EXAM DATE/TIME PROCEDURE ORDERING PROVIDER [id number] 05/31/2022 20:59 EDT CR Pelvis 1 or 2 Views [id number] -GILLIAN SYKES CPT code 80277 Reason For Exam (CR Pelvis 1 or [...] R Transcribed Date and Time: 05/31/2022 8:53 [facility] Work Phone: Radiology Study observation (narrative) [facility] Work Phone: XR PELVIS (1-2 VW)Ordered By : Troy Rubin on 05-31-2022 [facility] Work Phone: Basic Metabolic Panelon 05-14 Anion gap [Moles/Vol] 5 mmol/L Normal 3-13 [facility] Comment on above: Performed By: #### B MP3, PT/AP, HEMOG, TROPN, LACT3, ETOH4 #### [facility] [address] [place] [address] Calcium [Mass/Vol] 8.8 mg/dL Normal 8.4-10.4 [facility] Comment on above: Performed By: #### B MP3, PT/AP, HEMOG, TROPN, LACT3, ETOH4 #### [facility] [address] [place] [address] CO2 [Moles/Vol] 33 mmol/L High 22-30 [facility] Comment on above: Performed By: #### B MP3, PT/AP, HEMOG, TROPN, LACT3, ETOH4 #### [place], [place] Glucose [Mass/Vol] 149 mg/dL High 70-100 [facility] Comment on above: Performed By: #### B MP3, PT/AP, HEMOG, TROPN, LACT3, ETOH4 #### [place] [place], [place] Urea nitrogen [Mass/Vol] 9 mg/dL Normal 9-20 [facility] Comment on above: Performed By: #### B MP3, PT/AP, HEMOG, TROPN, LACT3, ETOH4 #### [place] [place], [place] Creatinine [Mass/Vol] 0.76 mg/dL Normal 0.52-1.25 [facility] Comment on above: Performed By: #### B MP3, PT/AP, HEMOG, TROPN, LACT3, ETOH4 #### [place] [place], [place] GFR/1.73 sq M.predicted among blacks MDRD (S/P/Bld) [Vol rate/Area] mL/min/{1.73_m2} Normal >60 [facility] Comment on above: Performed By: #### B MP3, PT/AP, HEMOG, TROPN, LACT3, ETOH4 #### [place], [place] GFR/1.73 sq M.predicted among non-blacks MDRD (S/P/Bld) [Vol rate/Area] 77.9 mL/min/{1.73_m2} Normal >60 [facility] Comment on above: Result Comment: KDIG O [...] MP3, PT/AP, HEMOG, TROPN, LACT3, ETOH4 #### [address] Potassium [Moles/Vol] 3.6 mmol/L Normal 3.5-5.1 [facility] Comment on above: Performed By: #### B MP3, PT/AP, HEMOG, TROPN, LACT3, ETOH4 #### [address] Sodium [Moles/Vol] 141 mmol/L Normal 135-145 [facility] Comment on above: Performed By: #### B MP3, PT/AP, HEMOG, TROPN, LACT3, ETOH4 #### [address] Chloride [Moles/Vol] 103 mmol/L Normal 98-107 [facility] Comment on above: Performed By: #### B MP3, PT/AP, HEMOG, TROPN, LACT3, ETOH4 #### [address] Anion gap [Moles/Vol] 5 mmol/L 3 - 13 mmol/L [facility] Calcium [Mass/Vol] 8.8 mg/dL 8.4 - 10. 4 mg/dL [facility] Chloride [Moles/Vol] 103 mmol/L 98 - 10 7 mmol/L [facility] CO2 [Moles/Vol] 33 mmol/L High 22 - 30 mmol/L [facility] Creatinine [Mass/Vol] 0.76 mg/dL 0.52 - 1.25 mg/dL [facility] eGFR mL/min 60 - P INF mL/min [facility] EGFR IF NonAfrican U[place]ayan 77.9 mL/min 60 - PINF mL/min [facility] Comment on above: KDIGO guidelines pro vide [...] [Mass/Vol] 9 mg/dL 9 - 20 mg/dL [facility] CBCon 05-30-2022 Hematocrit (Bld) [Volume fraction] 36.3 % 35.0 - 47.0 % [facility] Hemoglobin (Bld) [Mass/Vol] 11.6 g/dL Low 11.7 - 16.0 g/dL [facility] [...] - 10.7 10*3/uL [facility] Test Performed by [id number] [place] [address] [facility] Chest Portableon 05-30-20 CR Chest Portable Patient Name: ANDRE BLANCA Diagnostic Radiology ACCESSION EXAM DATE/TIME PROCEDURE ORDERING PROVIDER [id number] 05/30/2022 10:36 EDT CR Chest Portable [id number] LALIT AVENDAÑO CPT code 01065 Reason For Exam (CR Chest Portable) fall, [...] Transcribed Date and Time: 05/30/2022 10:29 Normal [facility] CR Elbow 3+ Views Lefton CR Elbow 3+ Views Left Patient Name: ANDRE BLANCA Diagnostic Radiology ACCESSION EXAM DATE/TIME PROCEDURE ORDERING PROVIDER [id number] 05/30/2022 10:17 EDT CR Elbow 3+ Views Left [id number] -MARGARET CUEVAS CPT code 74482 Reason For Exam (CR Elbow 3+ Views [...] Transcribed Date and Time: 05/30/2022 10:22 Normal [facility] CR Femur 2+ Views Lefton CR Femur 2+ Views Left Patient Name: ANDRE BLANCA Diagnostic Radiology ACCESSION EXAM DATE/TIME PROCEDURE ORDERING PROVIDER [id number] 05/30/2022 10:17 EDT CR Femur 2+ Views Left n [id number] -MARGARET CUEVAS CPT code 35056 Reason For Exam (CR Femur 2+ Views [...] Transcribed Date and Time: 05/30/2022 10:24 Normal [facility] CR Pelvis 1 or 2 Viewson CR Pelvis 1 or 2 Views Patient Name: ANDRE BLANCA Diagnostic Radiology ACCESSION EXAM DATE/TIME PROCEDURE ORDERING PROVIDER [id number] 05/30/2022 10:36 EDT CR Pelvis 1 or 2 Views [id number] -LALIT PICHARDO CPT code 03594 Reason For Exam (CR Pelvis 1 or [...] THOMAS Transcribed Date and Time: 05/30/2022 10:24 [facility] CR Shoulder 2+ Views Lefton 05-30-2022 CR Shoulder 2+ Views Left Patient Name: ANDRE BLANCA Diagnostic Radiology ACCESSION EXAM DATE/TIME PROCEDURE ORDERING PROVIDER [id number] 05/30/2022 10:17 EDT CR Shoulder 2+ Views [id number] -CUEVASMARGARET FONG Left CPT code 18957 Reason For Exam (CR Shoulder 2+ Views [...] Transcribed Date and Time: 05/30/2022 10:28 Normal [facility] CR Tibia/Fibula 2 Views Abundio santa 05-30-2022 CR Tibia/Fibula 2 Views Bilateral Patient Name: ANDRE BLANCA Diagnostic Radiology ACCESSION EXAM DATE/TIME PROCEDURE ORDERING PROVIDER [id number] 05/30/2022 19:27 EDT CR Tibia/Fibula 2 Views MD FARAZ, ERLINDA Bilateral CPT code 92872 Reason For Exam (CR Tibia/Fibula 2 Views [...] NICHOLAS Transcribed Date and Time: 05/30/2022 7:12 Normal [facility] CT CERVICAL SPINE WO CONTRAS Ton 05-30-2022 Patient Name: ANDRE BLANCA Computed Tomography ACCESSION EXAM DATE/TIME PROCEDURE ORDERING PROVIDER [id number] 05/30/2022 09:[address] Spine Cervical w/o [id number] -CAYLA MADRIGAL Contrast CPT code 49472 Reason For Exam (CT Spine Cervical w/o [...] ALFRED Transcribed Date and Time: 05/30/2022 10:58 [facility] Aidan Andrade DO - 05/30/2022 Patient Name: ANDRE BLANCA Computed Tomography ACCESSION EXAM DATE/TIME PROCEDURE ORDERING PROVIDER [id number] 05/30/2022 09:[address] Spine Cervical w/o 236328 -CAYLA MADRIGAL Contrast CPT code 98980 Reason For Exam (CT Spine Cervical w/o [...] and Time: 05/30/2022 10:58 [facility] Work Phone: [facility] Work Phone: CT HEAD WO CONTRASTon 2021 [facility]: [id number] Computed Tomography ACCESSION EXAM DATE/TIME PROCEDURE ORDERING PROVIDER [id number] 05/30/2022 09:[address] Head or Brain w/o 546514 -CRANKSHAW, CAYLA Contrast CPT code 12311 Reason For Exam (CT Head or Brain [...] ALFRED Transcribed Date and Time: 05/30/2022 10:49 [facility] Aidan Mcguire DO - 05/30/2022 [facility]: [id number] Computed Tomography ACCESSION EXAM DATE/TIME PROCEDURE ORDERING PROVIDER [id number] 05/30/2022 09:[address] Head or Brain w/o 252996 -CRANKSHAW, CAYLA Contrast CPT code 86764 Reason For Exam (CT Head or Brain [...] CONTRASTOrdered B y: Aidan Mcguire on 05-30-2022 [facility] Work Phone: CT Head or Brain w/o Contras ton 05-30-2022 CT Head or Brain w/o Contrast [facility]: [id number] Computed Tomography ACCESSION EXAM DATE/TIME PROCEDURE ORDERING PROVIDER [id number] 05/30/2022 16:[address] Head or Brain w/o 814603 -RADHA MOON Contrast CPT code 89049 Reason For Exam (CT Head or Brain [...] Transcribed Date and Time: 05/30/2022 5:06 Normal [facility] CT Head or Brain w/o Contrast Patient Name: ANDRE BLANCA Computed Tomography ACCESSION EXAM DATE/TIME PROCEDURE ORDERING PROVIDER [id number] 05/30/2022 09:[address] Head or Brain w/o 614515 -CAYLA MADRIGAL Contrast CPT code 66617 Reason For Exam (CT Head or Brain [...] Transcribed Date and Time: 05/30/2022 10:49 Normal [facility] CT Spine Cervical w/o Katie weeks 05-30-2022 CT Spine Cervical w/o Contrast Patient Name: ANDRE BLANCA Computed Tomography ACCESSION EXAM DATE/TIME PROCEDURE ORDERING PROVIDER [id number] 05/30/2022 09:[address] Spine Cervical w/o 372440 -CAYLA MADRIGAL Contrast CPT code 92738 Reason For Exam (CT Spine Cervical w/o [...] ALFRED Transcribed Date and Time: 05/30/2022 10:58 Normal [facility] CT head without contraston 1 Patient Name: ANDRE BLANCA Computed Tomography ACCESSION EXAM DATE/TIME PROCEDURE ORDERING PROVIDER [id number] 05/30/2022 16:[address] Head or Brain w/o 964367 -RADHA MOON Contrast CPT code 23919 Reason For Exam (CT Head or Brain [...] WENDELL Transcribed Date and Time: 05/30/2022 5:06 [facility] Luis Medeiros MD - 05/30/2022 Patient Name: ANDRE BLANCA Computed Tomography ACCESSION EXAM DATE/TIME PROCEDURE ORDERING PROVIDER [id number] 05/30/2022 16:[address] Head or Brain w/o 080739 -RED RADHA Contrast CPT code 86049 Reason For Exam (CT Head or Brain [...] WENDELL Transcribed Date and Time: 05/30/2022 5:06 [employer] Work Phone: CT head without contrastOrde red By: Luis Ochoa on 05-30-2022 [employer] Work Phone: ED Provider Noteon 2 ED Provider Note [facility] EMERGENCY DEPT EMERGENCY [...] education: None Highest education level: None SCREENINGS Bernice Coma Scale Eye Opening: Spontaneous Best Verbal Response: Oriented Best Motor Response: Obeys commands Bernice Coma Scale Score: 15 PHYSICAL EXAM (up [...] EXAM DATE/ (more content not included)... Normal [facility] ED Provider Note Emergency Department Encounter [facility] [...] ED course/MDM: I, Dr. Decker, am the executive director global brand marketing of record. I personally saw the patient [...] [employer] Kwesi Decker DO 05/30/22 0949 Normal [facility] EKG 12 Lead - Chest Painon 1 [facility] Test Date: 2022-05-30 Pat Name: ANDRE BLANCA Department: 1AER Room: 6118 Gender: F Roustabout Hand: 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 : 1950 Requested By: KWESI DECKER Order Number: [id number] Reading MD: Kwesi Decker Measurements Intervals [place] Rate: 76 P: 70 IA: 202 QRS: 90 QRSD: 133 T: 34 QT: 405 QTc: 455 Interpretive Statements Sinus rhythm Right bundle branch block No previous EKG for comparison Electronically Signed On 05-30-2022 14:34:14 EDT by Kwesi Decker [facility] CARDIOLOGY Result, Unknown Provider - 05/30/2022 [facility] Test Date: 2022-05-30 Pat Name: ANDRE BLANCA Department: [facility] Room: [facility] Gender: F Roustabout Hand: 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 : 1950 Requested By: KWESI DECKER Order Number: [id number] Reading MD: Kwesi Decker Measurements Intervals [place] Rate: 76 P: 70 IA: 202 QRS: 90 QRSD: 133 T: 34 QT: 405 QTc: 455 Interpretive Statements Sinus rhythm Right bundle branch block No previous EKG for comparison Electronically Signed On 05-30-2022 14:34:14 EDT by Kwesi BARAJAS Work Phone: EKG 12 Lead - Chest PainOrde red By: Unknown Result on 05-30-2022 [facility] Ethanolon 05-30-2022 Ethanol Lvl <0.010 0.000 - 0.010 g/dL [facility] Comment on above: NOTE: This result is for medical treatment only. Analysis performed using non-forensic procedures. Ethanol Serum/Plasmaon 05-30 Ethanol-Serum/Plasma < 0.010 Normal 0.000-0.010 [facility] Comment on above: Result Comment: NOTE : This result is for medical treatment only. Analysis performed using non-forensic procedures. Performed By: #### B MP3, PT/AP, HEMOG, TROPN, LACT3, ETOH4 #### [facility] [employer] [address] [address] Hemogramon 05-30-2022 Erythrocyte distribution width (RBC) [Ratio] 15.8 % High 11.5-14.5 [facility] Comment on above: Performed By: #### B MP3, PT/AP, HEMOG, TROPN, LACT3, ETOH4 #### [place] [address] [place], [place] Hematocrit (Bld) [Volume fraction] 36.3 % Normal 35.0-47.0 [facility] Comment on above: Performed By: #### B MP3, PT/AP, HEMOG, TROPN, LACT3, ETOH4 #### [place] [address] [place], [place] Hemoglobin (Bld) [Mass/Vol] 11.6 g/dL Low 11.7-16.0 [facility] Comment on above: Performed By: #### B MP3, PT/AP, HEMOG, TROPN, LACT3, ETOH4 #### [place] [address] [place], [place] MCH (RBC) [Entitic mass] 27.1 pg Normal 26.0-34.0 [facility] Comment on above: Performed By: #### B MP3, PT/AP, HEMOG, TROPN, LACT3, ETOH4 #### [place] [address] [place], [place] MCHC 31.8 % Low 32.0-36.0 [facility] Comment on above: Performed By: #### B MP3, PT/AP, HEMOG, TROPN, LACT3, ETOH4 #### [address] MCV (RBC) [Entitic vol] 85.2 fL Normal 79.0-98.0 [facility] Comment on above: Performed By: #### B MP3, PT/AP, HEMOG, TROPN, LACT3, ETOH4 #### [address] Platelet mean volume (Bld) [Entitic vol] 7.4 fL Normal 7.4-12.4 [facility] Comment on above: Result Comment: MPV is a calculated measurement using platelet volume ratio. Performed By: #### B MP3, PT/AP, HEMOG, TROPN, LACT3, ETOH4 #### [place] [address] [place], [place] Platelets (Bld) [#/Vol] 246 10*3/uL Normal 140-440 [facility] Comment on above: Performed By: #### B MP3, PT/AP, HEMOG, TROPN, LACT3, ETOH4 #### [place] [address] [place], [place] RBC (Bld) [#/Vol] 4.27 10*6/uL Normal 3.80-5.20 [facility] Comment on above: Performed By: #### B MP3, PT/AP, HEMOG, TROPN, LACT3, ETOH4 #### [facility] [address] [place], [place] WBC (Bld) [#/Vol] 8.2 10*3/uL Normal 3.6-10.7 [facility] Comment on above: Performed By: #### B MP3, PT/AP, HEMOG, TROPN, LACT3, ETOH4 #### [place] [address] [place], [place] Lactic Acidon 05-30-2022 Lactate [Moles/Vol] 1.3 mmol/L Normal 0.7-2.0 [facility] Comment on above: Performed By: #### B MP3, PT/AP, HEMOG, TROPN, LACT3, ETOH4 #### [place] [address] [place], [place] Lactate [Moles/Vol] 1.3 mmol/L 0.7 - 2. 0 mmol/L [facility] Test Performed by [id number] [place] [address] LAB [facility] No Panel Informationon 05-30 Radiology Study observation (narrative) [facility] Work Phone: Test Performed by [id number] [place] [address] Radiology Study observation (narrative) [facility] Work Phone: Protime AND APTTon 2 aPTT Coag (Bld) [Time] 27.1 s Normal 20.0-30.5 [facility] Comment on above: Result Comment: NOTE : The therapeutic time for Heparin anticoagulation, based on Xa activity inhibition, is an APTT of 46-80 seconds. Performed By: #### B MP3, PT/AP, HEMOG, TROPN, LACT3, ETOH4 #### [address] INR 1.0 Normal 0.9-1.1 [facility] Comment on above: Result Comment: Que [...] MP3, PT/AP, HEMOG, TROPN, LACT3, ETOH4 #### [place] [address] [place], [place] PT Coag (PPP) [Time] 10.7 s Normal 9.0-12.0 [facility] Comment on above: Result Comment: . Performed By: #### B MP3, PT/AP, HEMOG, TROPN, LACT3, ETOH4 #### [address] Protime/INR & PTTon 10-17-20 22 aPTT Coag (Bld) [Time] 27.1 s 20.0 - 30.5 s [facility] Comment on above: NOTE: The therapeuti c time for Heparin anticoagulation, based on Xa activity inhibition, is an APTT of 46-80 seconds. INR Coag (Bld) [Relative time] 1.0 {INR} [facility] Comment on above: Recommended Anticoag ulant [...] [Time] 10.7 s 9.0 - 12.0 s [facility] Comment on above: . Test Performed by [id number] [place] [address] LAB [facility] TS GELon 05-30-2022 TS GEL ABO Group: O Rh, Gel: POS Antibody Screen Gel: NEG Normal [facility] Comment on above: Performed By: #### B MP3, PT/AP, HEMOG, TROPN, LACT3, ETOH4 #### [address] [id number] TYPE AND SCREENon 05-30-2022 [facility] Group[facility] Rh Type Positive [facility] Test Performed by [id number] [place] [address] LAB [facility] Troponinon 05-30-2022 Troponin I.cardiac [Mass/Vol] ng/mL 0.000 - 0.034 ng/mL [facility] Comment on above: . Test Performed by [facility], [address] [place] [id number] [place] [address] [facility] Troponin Ion 05-30-2022 Troponin I.cardiac [Mass/Vol] ng/mL Normal 0.000-0.034 [facility] Comment on above: Result Comment: . Performed By: #### B MP3, PT/AP, HEMOG, TROPN, LACT3, ETOH4 #### [address] [address] XR CHEST PORTABLEon 05-30-20 Patient Name: ANDRE BLANCA Diagnostic Radiology ACCESSION EXAM DATE/TIME PROCEDURE ORDERING PROVIDER [id number] 05/30/2022 10:36 EDT CR Chest Portable [id number] -LALIT PICHARDO CPT code 30074 Reason For Exam (CR Chest Portable) fall, [...] THOMAS Transcribed Date and Time: 05/30/2022 10:29 [facility] Michel Iglesias M D - 05/30/2022 Patient Name: ANDRE BLANCA Diagnostic Radiology ACCESSION EXAM DATE/TIME PROCEDURE ORDERING PROVIDER [id number] 05/30/2022 10:36 EDT CR Chest Portable [id number] -LALIT PICHARDO CPT code 26551 Reason For Exam (CR Chest Portable) fall, [...] THOMAS Transcribed Date and Time: 05/30/2022 10:29 [facility] Work Phone: [facility] Work Phone: XR ELBOW LEFT (MIN 3 VIEWS)o n 05-30-2022 Patient Name: ANDRE BLANCA Diagnostic Radiology ACCESSION EXAM DATE/TIME PROCEDURE ORDERING PROVIDER [id number] 05/30/2022 10:17 EDT CR Elbow 3+ Views Left [id number] -CUEVAS MARGARET CPT code 24926 Reason For Exam (CR Elbow 3+ Views [...] THOMAS Transcribed Date and Time: 05/30/2022 10:22 [facility] Michel Iglesias M D - 05/30/2022 Patient Name: ANDRE BLANCA Diagnostic Radiology ACCESSION EXAM DATE/TIME PROCEDURE ORDERING PROVIDER [id number] 05/30/2022 10:17 EDT CR Elbow 3+ Views Left [id number] -MARGARET CUEVAS CPT code 25702 Reason For Exam (CR Elbow 3+ Views [...] THOMAS Transcribed Date and Time: 05/30/2022 10:22 [facility] Work Phone: [facility] Work Phone: XR FEMUR LEFT (MIN 2 VIEWS)o n 05-30-2022 Patient Name: ANDRE BLANCA Diagnostic Radiology ACCESSION EXAM DATE/TIME PROCEDURE ORDERING PROVIDER [id number] 05/30/2022 10:17 EDT CR Femur 2+ Views Left n [id number] CAMARA CPT code 12791 Reason For Exam (CR Femur 2+ Views [...] THOMAS Transcribed Date and Time: 05/30/2022 10:24 [facility] Michel Iglesias M D - 05/30/2022 Patient Name: ANDRE BLANCA Diagnostic Radiology ACCESSION EXAM DATE/TIME PROCEDURE ORDERING PROVIDER [id number] 05/30/2022 10:17 EDT CR Femur 2+ Views Left n [id number] CAMARA CPT code 87262 Reason For Exam (CR Femur 2+ Views [...] Radiology ACCESSION EXAM DATE/TIME PROCEDURE ORDERING PROVIDER [id number] 05/30/2022 10:36 EDT CR Pelvis 1 or 2 Views [id number] LYLE CPT code 62443 Reason For Exam (CR Pelvis 1 or [...] THOMAS Transcribed Date and Time: 05/30/2022 10:24 [facility] Michel Iglesias M D - 05/30/2022 [facility]: [id number] Diagnostic Radiology ACCESSION EXAM DATE/TIME PROCEDURE ORDERING PROVIDER [id number] 05/30/2022 10:36 EDT CR Pelvis 1 or 2 Views [id number] -LALIT PICHARDO CPT code 02238 Reason For Exam (CR Pelvis 1 or [...] [facility] Work Phone: [facility] Work Phone: XR Shoulder Left 2 VWon 05-14 [facility]: [id number] Diagnostic Radiology ACCESSION EXAM DATE/TIME PROCEDURE ORDERING PROVIDER [id number] 05/30/2022 10:17 EDT CR Shoulder 2+ Views [id number] -MARGARET CUEVAS Left CPT code 09203 Reason For Exam (CR Shoulder 2+ Views [...] THOMAS Transcribed Date and Time: 05/30/2022 10:28 [facility] Michel Iglesias M D - 05/30/2022 Patient Name: ANDRE BLANCA Diagnostic Radiology ACCESSION EXAM DATE/TIME PROCEDURE ORDERING PROVIDER [id number] 05/30/2022 10:17 EDT CR Shoulder 2+ Views [id number] -MARGARET CUEVAS Left CPT code 22525 Reason For Exam (CR Shoulder 2+ Views [...] THOMAS Transcribed Date and Time: 05/30/2022 10:28 [facility] Work Phone: XR Shoulder Left 2 VWOrdered By: Michel Iglesias on 05-30-2022 [facility] Work Phone: XR Tibia Fibula Bilateralon 05-30-2022 Patient Name: ANDRE BLANCA Diagnostic Radiology ACCESSION EXAM DATE/TIME PROCEDURE ORDERING PROVIDER [id number] 05/30/2022 19:27 EDT CR Tibia/Fibula 2 Views MD RUTH BLAKE Bilateral CPT code 11785 Reason For Exam (CR Tibia/Fibula 2 Views [...] NICHOLAS Transcribed Date and Time: 05/30/2022 7:12 [facility] Estevan Hicks MD - 05/30/2022 Patient Name: ANDRE BLANCA Diagnostic Radiology ACCESSION EXAM DATE/TIME PROCEDURE ORDERING PROVIDER [id number] 05/30/2022 19:27 EDT CR Tibia/Fibula 2 Views MD RUTH BLAKE Bilateral CPT code 95516 Reason For Exam (CR Tibia/Fibula 2 Views [...] BilateralOrd ered By: Estevan Hicks on 05-30-2022 [facility] Work Phone: CR Knee 1 or 2 Views Righton 05-18-2022 CR Knee 1 or 2 Views Right Patient Name: ANDRE BLANCA Diagnostic Radiology ACCESSION EXAM DATE/TIME PROCEDURE ORDERING PROVIDER [id number] 05/18/2022 10:40 EDT CR Knee 1 or 2 Views [id number] -ABIOLA CONNOLLY Right CPT code 25644 Reason For Exam (CR Knee 1 or [...] Transcribed Date and Time: 05/18/2022 4:32 Normal [facility] CR Knee Standing Bilateralon 05-18-2022 CR Knee Standing Bilateral Patient Name: ANDRE BLANCA Diagnostic Radiology ACCESSION EXAM DATE/TIME PROCEDURE ORDERING PROVIDER [id number] 05/18/2022 10:45 EDT CR Knee Standing AP [id number] -ABIOLA CONNOLLY Bilateral CPT code 18537 Reason For Exam (CR Knee Standing AP [...] Transcribed Date and Time: 05/18/2022 4:32 Normal [facility] No Panel Informationon 05-18 Radiology Study observation (narrative) [facility] Work Phone: XR KNEE BILATERAL STANDINGon 05-18-2022 Patient Name: ANDRE BLANCA Diagnostic Radiology ACCESSION EXAM DATE/TIME PROCEDURE ORDERING PROVIDER [id number] 05/18/2022 10:45 EDT CR Knee Standing AP [id number] -ABIOLA CONNOLLY Bilateral CPT code 75571 Reason For Exam (CR Knee Standing AP [...] R Transcribed Date and Time: 05/18/2022 4:32 [facility] Troy Rubin MD - 05/18/2022 Patient Name: ANDRE BLANAC Diagnostic Radiology ACCESSION EXAM DATE/TIME PROCEDURE ORDERING PROVIDER [id number] 05/18/2022 10:45 EDT CR Knee Standing AP [id number] -ABIOLA CONNOLLY Bilateral CPT code 82816 Reason For Exam (CR Knee Standing AP [...] R Transcribed Date and Time: 05/18/2022 4:32 [facility] Work Phone: XR KNEE RIGHT (1-2 VIEWS)on 05-18-2022 Patient Name: ANDRE BLANCA Diagnostic Radiology ACCESSION EXAM DATE/TIME PROCEDURE ORDERING PROVIDER [id number] 05/18/2022 10:40 EDT CR Knee 1 or 2 Views [id number] -ABIOLA CONNOLLY Right CPT code 48539 Reason For Exam (CR Knee 1 or [...] R Transcribed Date and Time: 05/18/2022 4:32 [facility] Troy Rubin MD - 05/18/2022 Patient Name: ANDRE BLANCA Diagnostic Radiology ACCESSION EXAM DATE/TIME PROCEDURE ORDERING PROVIDER [id number] 05/18/2022 10:40 EDT CR Knee 1 or 2 Views [id number] -ABIOLA CONNOLLY Right CPT code 98839 Reason For Exam (CR Knee 1 or [...] R Transcribed Date and Time: 05/18/2022 4:32 [facility] Work Phone: XR KNEE RIGHT (1-2 VIEWS)Ord ered By: Troy Rubin on 05-18-2022 [facility] Work Phone: CR Shoulder 2+ Views Lefton 05-05-2022 CR Shoulder 2+ Views Left [facility]: [id number] Diagnostic Radiology ACCESSION EXAM DATE/TIME PROCEDURE ORDERING PROVIDER [id number] 05/05/2022 10:01 EDT CR Shoulder 2+ Views [id number] -BACKER, Left ALEVISM CPT code 30214 Reason For Exam (CR Shoulder 2+ Views [...] Transcribed Date and Time: 05/06/2022 4:30 Normal [facility] Basophil percentageon 2021 Chloride [Moles/Vol] 105 mmol/L 98-107 [facility] Work Phone: Glucose [Mass/Vol] 110 mg/dL 74-106 [facility] Work Phone: Comment on above: Fasting Glucose resu lt from 100 to 125 mg/dL suggests IMPAIRED HOMEOSTASIS per A.D.A. criteria. Potassium [Moles/Vol] 3.1 mmol/L 3.5-5.1 [facility] Work Phone: Sodium [Moles/Vol] 143 mmol/L 136-145 [facility] Work Phone: WBC (Bld) [#/Vol] 5.5 10*3/uL 4.4-11.0 [facility] Work Phone: Blood erythrocytes count (nu mber/volume)on 04-25-2022 RBC (Bld) [#/Vol] 3.80 10*6/uL 4.2-5.4 [facility] Work Phone: Blood hemoglobin measurement (mass/volume)on 04-25-2022 Hemoglobin (Bld) [Mass/Vol] 10.8 g/dL 12.0-15.0 [facility] Work Phone: Blood platelet mean volumeon 04-25-2022 Platelet mean volume (Bld) [Entitic vol] 10.2 fL 6.2-12.0 [facility] Work Phone: Determination of erythrocyte mean corpuscular volume (MCV)on 04-25-2022 MCV (RBC) [Entitic vol] 88.9 fL 81-99 [facility] Work Phone: Hematocrit Auto (Bld) [Volum e fraction]on 04-25-2022 Hematocrit (Bld) [Volume fraction] 33.8 % 37-47 [facility] Work Phone: Laboratory - Chemistry and C hemistry - challengeon 04-25-2022 CO2 [Moles/Vol] 32.0 mmol/L 21.0-32.0 [facility] Work Phone: Urea nitrogen/Creatinine [Mass ratio] 10.6 mg/mg 10-20 [facility] Work Phone: Laboratory - Hematology and Cell countson 04-25-2022 Erythrocyte distribution width (RBC) [Entitic vol] 45.5 fL 35.1-43.9 [facility] Work Phone: Erythrocyte distribution width (RBC) [Ratio] 14.0 % 11.6-14.6 [facility] Work Phone: MCH (RBC) [Entitic mass] 28.4 pg 27.0-32.0 [facility] Work Phone: MCHC Auto (RBC) [Mass/Vol]on 04-25-2022 MCHC (RBC) [Mass/Vol] 32.0 g/dL 32-36 [facility] Work Phone: No Panel Informationon 04-25 Estimated GFR (MDRD) Amer 113 mL/min >60 [facility] Work Phone: Comment on above: GFR Calc Estimated GFR (MDRD) Non-Af Amer 94 mL/min >60 [facility] Work Phone: Comment on above: Non- GFR Calc Platelets bldon 04-25-2022 Platelets (Bld) [#/Vol] 260 10*3/uL 150-450 [facility] Work Phone: Serum or plasma calcium carlie urement (mass/volume)on 04-25-2022 Calcium [Mass/Vol] 8.7 mg/dL 8.5-10.1 oste r [facility] Work Phone: Serum or plasma creatinine m easurement (mass/volume)on 04-25-2022 Creatinine [Mass/Vol] 0.66 mg/dL 0.55-1.[address] [facility] Work Phone: Comment on above: The validity of the calculated GFR & GFRAA in patients over 70 years has not been determined. Clinical correlation is essential. Serum or plasma urea nitroge n measurement (mass/volume)on 04-25-2022 Urea nitrogen [Mass/Vol] 7 mg/dL 7-18 [facility] Work Phone: Thin prep Papanicolaou smear with manual screeningon 04-25-2022 Thin prep Papanicolaou smear with manual screening 6 5-15 [facility] Work Phone: No Panel Informationon 03-25 Thyroid Stimulating Hormone (TSH) 0.01 uIU/mL 0.358-3.74 [facility] Work Phone: Whole blood hemoglobin A1c/t otal hemoglobin ratio (mass fraction)on 03-25-2022 HbA1c (Bld) [Mass fraction] 5.4 % 3.8-5.6 [facility] Work Phone: Comment on above: Normal < 5.7 % Predi abetic 5.7 - 6.4 % Diabetic >or= 6.5 % Please note range changes. Absolute lymphocyte counton 03-14-2022 Lymphocytes Auto (Unsp spec) [#/Vol] 1.95 10*3/uL 0.83-4.51 [facility] Work Phone: Basophil percentageon 08-01- 2022 Basophils/100 WBC (Bld) 1.1 % 0-1 [facility] Work Phone: Eosinophils/100 WBC (Bld) 4.7 % 0-5 [facility] Work Phone: Neutrophils (Bld) [#/Vol] 3.4 10*3/uL 2.0-7.7 [facility] Work Phone: Neutrophils/100 WBC (Bld) 55.3 % 47-70 [facility] Work Phone: WBC (Bld) [#/Vol] 6.2 10*3/uL 4.4-11.0 [facility] Work Phone: Blood erythrocytes count (nu mber/volume)on 03-14-2022 RBC (Bld) [#/Vol] 4.05 10*6/uL 4.2-5.4 [facility] Work Phone: [phone] Blood hemoglobin measurement (mass/volume)on 03-14-2022 Hemoglobin (Bld) [Mass/Vol] 11.7 g/dL 12.0-15.0 [facility] Work Phone: [phone] Blood lymphocytes/100 leukoc yteson 03-14-2022 Lymphocytes/100 WBC (Bld) 31.6 % 19-41 [facility] Work Phone: [phone] Blood monocytes/100 leukocyt eson 03-14-2022 Monocytes/100 WBC (Bld) 7.0 % 0-10 [facility] Work Phone: Blood platelet mean volumeon 03-14-2022 Platelet mean volume (Bld) [Entitic vol] 10.1 fL 6.2-12.0 [facility] Work Phone: Determination of erythrocyte mean corpuscular volume (MCV)on 03-14-2022 MCV (RBC) [Entitic vol] 90.4 fL 81-99 [facility] Work Phone: Hematocrit Auto (Bld) [Volum e fraction]on 03-14-2022 Hematocrit (Bld) [Volume fraction] 36.6 % 37-47 [facility] Work Phone: Laboratory - Hematology and Cell countson 03-14-2022 Erythrocyte distribution width (RBC) [Entitic vol] 44.3 fL 35.1-43.9 [facility] Work Phone: [phone] Erythrocyte distribution width (RBC) [Ratio] 13.3 % 11.6-14.6 [facility] Work Phone: Immature granulocytes/100 WBC (Bld) 0.300 % 0.0-0.9 [facility] Work Phone: Comment on above: IG% - Immature Granu locytes (promyelocytes, myelocytes and metamyelocytes) > 1% indicates that a LEFT SHIFT is Present. MCH (RBC) [Entitic mass] 28.9 pg 27.0-32.0 [facility] Work Phone: Nucleated RBC/100 WBC (Bld) [Ratio] 0 % 0-5 [facility] Work Phone: MCHC Auto (RBC) [Mass/Vol]on 03-14-2022 MCHC (RBC) [Mass/Vol] 32.0 g/dL 32-36 [facility] Work Phone: Platelets bldon 03-14-2022 Platelets (Bld) [#/Vol] 292 10*3/uL 150-450 [facility] Work Phone: CR Shoulder 2+ Views Lefton 03-03-2022 CR Shoulder 2+ Views Left [facility]: [id number] Radiology ACCESSION EXAM DATE/TIME PROCEDURE ORDERING PROVIDER [id number] 03/03/2022 09:30 EDT CR Shoulder 2+ Views ANALISA LEONG, NURYS Rubio Left CPT code 93416 Reason For Exam (CR Shoulder 2+ Views [...] Transcribed Date and Time: 03/04/2022 12:30 Normal [facility] CBCOrdered By: Marjorie Carrillo on 01-19-2022 Hematocrit (Bld) [Volume fraction] 32.9 % Low 35.0 - 47.0 % [facility] Hemoglobin (Bld) [Mass/Vol] 10.6 g/dL Low 11.7 - 16.0 g/dL [facility] Interpretation and review of laboratory results Abnormal [facility] MCH (RBC) [Entitic mass] 28.2 pg 26.0 - 34.0 pg [facility] MCHC (RBC) [Mass/Vol] 32.2 % 32.0 - 36.0 % [facility] MCV (RBC) [Entitic vol] 87.5 fL 79.0 - 98.0 fL [facility] Platelet distribution width (Bld) [Ratio] 15.5 % High 11.5 - 14.5 % [facility] Platelet mean volume (Bld) [Entitic vol] 8.1 fL 7.4 - 12.4 fL [facility] Comment on above: MPV is a calculated measurement using platelet volume ratio. Platelets (Bld) [#/Vol] 244 10*3/uL 140 - 440 10*3/uL [facility] RBC (Bld) [#/Vol] 3.75 10*6/uL Low 3.80 - 5.2 0 10*6/uL [facility] WBC (Bld) [#/Vol] 11.3 10*3/uL High 3.6 - 10.7 10*3/uL [facility] CBCon 01-19-2022 Test Performed by [facility], [address] LAB Comp Metabolic Panelon 01-19 Calcium [Mass/Vol] 8.4 mg/dL Normal 8.4-10.4 [facility] Comment on above: Performed By: #### Ana Rosa JIM CMP3 #### [facility] [address] [place] [address] ALP [Catalytic activity/Vol] 114 U/L Normal 38-126 [facility] Comment on above: Performed By: #### Ana Rosa JIM CMP3 #### [facility] [address] [place] [address] ALT [Catalytic activity/Vol] 9 U/L Normal 0-34 [facility] Comment on above: Result Comment: The ALT test is performed by an updated assay method. Please note that the reference intervals have been changed and are now sex specific. Performed By: #### Ana Rosa JIM CMP3 #### [facility] [address] [place] [address] Anion gap [Moles/Vol] 6 mmol/L Normal 3-13 [facility] Comment on above: Performed By: #### Ana Rosa JIM CMP3 #### [facility] [address] [place] [address] AST [Catalytic activity/Vol] 27 U/L Normal 15-46 [facility] Comment on above: Performed By: #### Ana Rosa JIM CMP3 #### [facility] [address] [place] [address] Bilirubin [Mass/Vol] 0.5 mg/dL Normal 0.2-1.3 [facility] Comment on above: Performed By: #### Ana Rosa JIM CMP3 #### [facility] [address] [place] [address] CO2 [Moles/Vol] 27 mmol/L Normal 22-30 [facility] Comment on above: Performed By: #### Ana Rosa JIM CMP3 #### [facility] [address] [place] [address] Creatinine [Mass/Vol] 0.76 mg/dL Normal 0.52-1.25 [facility] Comment on above: Performed By: #### Ana Rosa JIM CMP3 #### [facility] [address] [place] [address] GFR/1.73 sq M.predicted among blacks MDRD (S/P/Bld) [Vol rate/Area] mL/min/{1.73_m2} Normal >60 [facility] Comment on above: Performed By: #### H JEWEL JIM3 #### [facility] [address] [place] [address] GFR/1.73 sq M.predicted among non-blacks MDRD (S/P/Bld) [Vol rate/Area] 78.1 mL/min/{1.73_m2} Normal >60 [facility] Comment on above: Result Comment: KDIG O [...] tubular creatinine secretion. Performed By: #### H JEWEL JIM3 #### [facility] [address] [place] [address] Glucose [Mass/Vol] 116 mg/dL High 70-100 [facility] Comment on above: Performed By: #### H JEWEL JIM3 #### [facility] [address] [place] [address] Protein [Mass/Vol] 6.5 g/dL Normal 6.3-8.2 [facility] Comment on above: Performed By: #### H JEWEL JIM3 #### [facility] [address] [place] [address] Urea nitrogen [Mass/Vol] 11 mg/dL Normal 9-20 [facility] Comment on above: Performed By: #### H EMOG, CMP3 #### [facility] [address] [place] [address] Potassium [Moles/Vol] 3.7 mmol/L Normal 3.5-5.1 [facility] Comment on above: Performed By: #### H HERNÁN, CMP3 #### [facility] [address] [place] [address] Albumin [Mass/Vol] 3.4 g/dL Low 3.5-5.0 [facility] Comment on above: Performed By: #### H EMOPraveen, CMP3 #### [facility] [address] [place] [address] Chloride [Moles/Vol] 102 mmol/L Normal 98-107 [facility] Comment on above: Performed By: #### H HERNÁN CMP3 #### [facility] [address] [place] [address] Sodium [Moles/Vol] 136 mmol/L Normal 135-145 [facility] Comment on above: Performed By: #### H HERNÁN CMP3 #### [facility] [address] [place] [address] Complete Urinalysison 2021 Appearance (U) Clear Normal Clear [facility] Comment on above: Result Comment: . Performed By: #### C UA2 #### [facility] [address] [place] [address] Bacteria Few Abnormal Negative [facility] Comment on above: Result Comment: . Performed By: #### C UA2 #### [facility] [address] [place] [address] Bilirubin,Urine Negative Normal Negative [facility] Comment on above: Result Comment: . Performed By: #### C UA2 #### [facility] [address] [place] [address] Cast, Hyaline 6 - 10 Abnormal Negative [facility] Comment on above: Result Comment: . Performed By: #### C UA2 #### [facility] [address] [place] [address] Color (U) Yellow Normal Lt. Yellow [facility] Comment on above: Result Comment: . Performed By: #### C UA2 #### [facility] [address] [place] [address] Glucose Ql (U) Normal Normal Normal (<70) [facility] Comment on above: Result Comment: . Performed By: #### C UA2 #### [facility] [address] [place] [address] Ketone,Urine Negative Normal Negative [facility] Comment on above: Result Comment: . Performed By: #### C UA2 #### [facility] [address] [place] [address] Leukocytes,Urine Negative Normal Negative [facility] Comment on above: Result Comment: . Performed By: #### C UA2 #### [facility] [address] [place] [address] Mucous Threads Few Normal Negative [facility] Comment on above: Result Comment: . Performed By: #### C UA2 #### [facility] [address] [place] [address] Nitrites,Urine Negative Normal Negative [facility] Comment on above: Result Comment: . Performed By: #### C UA2 #### [facility] [address] [place] [address] Occult Blood,Urine Negative Normal Negative [facility] Comment on above: Result Comment: . Performed By: #### C UA2 #### [facility] [address] [place] [address] pH,Urine 5.5 Normal 5.0-8.0 [facility] Comment on above: Result Comment: . Performed By: #### C UA2 #### [facility] [address] [place] [address] Protein (U) [Mass/Vol] 10 mg/dL Abnormal Negative [facility] Comment on above: Result Comment: . Performed By: #### C UA2 #### [facility] [address] [place] [address] RBC, Urine 0 - 2 Normal 0-2 [facility] Comment on above: Result Comment: . Performed By: #### C UA2 #### [facility] [address] [place] [address] Specific [place],Urine 1.023 Normal 1.005 - 1.030 [facility] Comment on above: Result Comment: . Performed By: #### C UA2 #### [facility] [address] [place] [address] Squamous Epithelial 3 - 5 Normal 3-5 [facility] Comment on above: Result Comment: . Performed By: #### C UA2 #### [facility] [address] [place] [address] Urobilinogen,Urine Normal Normal Normal (0-1) [facility] Comment on above: Result Comment: . Performed By: #### C UA2 #### [facility] [address] [place] [address] WBC, Urine 3 - 5 Normal 0-5 [facility] Comment on above: Result Comment: . Performed By: #### C UA2 #### [facility] [address] [place] [address] Comprehensive Metabolic Pane jay 01-19-2022 Albumin [Mass/Vol] 3.4 g/dL Low 3.5 - 5.0 g/dL [employer] Work Phone: [phone] ALP (Bld) [Catalytic activity/Vol] 114 U/L 38 - 126 U/L [employer] Work Phone: [phone] ALT [Catalytic activity/Vol] 9 U/L 0 - 34 U/L [employer] Work Phone: [phone] Comment on above: The ALT test is perf ormed by an updated assay method. Please note that the reference intervals have been changed and are now sex specific. Anion gap [Moles/Vol] 6 mmol/L 3 - 13 mmol/L [employer] Work Phone: [phone] AST [Catalytic activity/Vol] 27 U/L 15 - 46 U/L [facility] Work Phone: [phone] Bilirubin [Mass/Vol] 0.5 mg/dL 0.2 - 1 .3 mg/dL [employer] Work Phone: [phone] Calcium [Mass/Vol] 8.4 mg/dL 8.4 - 10. 4 mg/dL [employer] Work Phone: [phone] Chloride [Moles/Vol] 102 mmol/L 98 - 10 7 mmol/L [employer] Work Phone: [phone] CO2 [Moles/Vol] 27 mmol/L 22 - 30 mmol/L [employer] Work Phone: Creatinine [Mass/Vol] 0.76 mg/dL 0.52 - 1.25 mg/dL [facility] Work Phone: [phone] EGFR IF NonAfrican [place] 78.1 mL/min >60 [facility] Work Phone: [phone] Comment on above: KDIGO guidelines pro vide [...] fraction] 6.5 g/dL 6.3 - 8.2 g/dL [facility] Work Phone: GFR/1.73 sq M.predicted among blacks MDRD (S/P/Bld) [Vol rate/Area] mL/min/{1.73_m2} >60 mL/min [facility] Work Phone: [phone] Glucose [Mass/Vol] 116 mg/dL High 70 - 100 mg/dL [facility] Work Phone: [phone] Interpretation and review of laboratory results Abnormal [facility] Work Phone: Potassium [Moles/Vol] 3.7 mmol/L 3.5 - 5.1 mmol/L [facility] Work Phone: [phone] Sodium [Moles/Vol] 136 mmol/L 135 - 145 mmol/L [facility] Work Phone: Urea nitrogen (BldV) [Mass/Vol] 11 mg/dL 9 - 20 mg/dL [facility] Work Phone: Test Performed by [facility], [address] [place] [address] [facility] Work Phone: Hemogramon 01-19-2022 Erythrocyte distribution width (RBC) [Ratio] 15.5 % High 11.5-14.5 [facility] Comment on above: Performed By: #### Ana Rosa JIM CMP3 #### [facility] [address] [place] [address] Hematocrit (Bld) [Volume fraction] 32.9 % Low 35.0-47.0 [facility] Comment on above: Performed By: #### Ana Rosa JIM CMP3 #### [facility] [address] [place] [address] Hemoglobin (Bld) [Mass/Vol] 10.6 g/dL Low 11.7-16.0 [facility] Comment on above: Performed By: #### Ana Rosa JIM CMP3 #### [facility] [address] [place] [address] MCH (RBC) [Entitic mass] 28.2 pg Normal 26.0-34.0 [facility] Comment on above: Performed By: #### Ana Rosa JIM CMP3 #### [facility] [address] [place] [address] MCHC 32.2 % Normal 32.0-36.0 [facility] Comment on above: Performed By: #### Ana Rosa JIM CMP3 #### [facility] [address] [place] [address] MCV (RBC) [Entitic vol] 87.5 fL Normal 79.0-98.0 [facility] Comment on above: Performed By: #### Ana Rosa JIM CMP3 #### [facility] [address] [place] [address] Platelet mean volume (Bld) [Entitic vol] 8.1 fL Normal 7.4-12.4 [facility] Comment on above: Result Comment: MPV is a calculated measurement using platelet volume ratio. Performed By: #### Ana Rosa JIM CMP3 #### [facility] [address] [place] [address] Platelets (Bld) [#/Vol] 244 10*3/uL Normal 140-440 [facility] Comment on above: Performed By: #### H JEWEL JIM3 #### [facility] [address] [place] [address] RBC (Bld) [#/Vol] 3.75 10*6/uL Low 3.80-5.20 [facility] Comment on above: Performed By: #### H JEWEL JIM3 #### [facility] [address] [place] [address] WBC (Bld) [#/Vol] 11.3 10*3/uL High 3.6-10.7 [facility] Comment on above: Performed By: #### H JEWEL JIM3 #### [facility] [address] [place] [address] Urinalysison 01-19-2022 Appearance (U) Clear Clear NA [facility] Comment on above: . Bacteria, UA Few Abnormal Negative /[HPF] [facility] Comment on above: . Bilirubin Urine Negative [...] /[HPF] [facility] Comment on above: . Specific [place], Urine 1.023 S [facility] Comment on above: . Squam Epithel, UA 3-5 3 - 5 /[HPF] [facility] Comment on above: . Urobilinogen, Urine Normal Normal ( 0-1) mg/dL [facility] Comment on above: . WBC, UA 3-5 0 - 5 /[HPF] [facility] Comment on above: . Test Performed by [facility], [facility] [address] LAB [facility] Shoulder 2+ Views Lefton 01-18-2022 CR Shoulder 2+ Views Left Patient Name: ANDRE BLANCA Diagnostic Radiology ACCESSION EXAM DATE/TIME PROCEDURE ORDERING PROVIDER [id number] 01/18/2022 12:12 EDT CR Shoulder 2+ Views MILTON FAMILIA Butts CPT code 33989 Reason For Exam (CR Shoulder 2+ Views Left) PACU post-op rTSA Report Left shoulder three views HISTORY: Postoperative Left shoulder prosthesis. The alignment is anatomic. No evidence of a fracture. Report Dictated on Final Dictating Physician: MD YUN MALAY Signed Date and Time: 01/18/2022 1:58 pm Signed by: MD YUN MALAY Transcribed Date and Time: 01/18/2022 1:59 Normal [facility] OPERATIVE REPORTon Ordered by an unspecified provider. [facility] Op Noteon 01-18-2022 Op Note [facility] [address] [facility] [address] [place] [address] Dept: [phone] Loc: [phone] Operative Report Patient Name: Andre Blanca Date of : 1950 Date of Surgery: 01/18/22 Location: [facility] Preoperative Diagnosis: LEFT shoulder rotator cuff [...] patient's ASA was verified by the nurse global sales manager and the anesthesia staff. Fire risk was [...] procedure w (more content not included)... Normal [facility] XR Shoulder Left 2 VWon 06-0 Patient Name: ANDRE BLANCA Diagnostic Radiology ACCESSION EXAM DATE/TIME PROCEDURE ORDERING PROVIDER [id number] 01/18/2022 12:12 EDT CR Shoulder 2+ Views MILTONVITALIYE Left CPT code 02618 Reason For Exam (CR Shoulder 2+ Views Left) PACU post-op rTSA Report Left shoulder three views HISTORY: Postoperative Left shoulder prosthesis. The alignment is anatomic. No evidence of a fracture. 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 The alignment is anatomic. No evidence of a fracture. Report Dictated on --- Final --- Dictating Physician: MD YUN MALAY Signed Date and Time: 01/18/2022 1:58 pm Signed by: MD YUN MALAY Transcribed Date and Time: 01/18/2022 1:59 [facility] Work Phone: Radiology Study observation (narrative) [facility] Work Phone: XR Shoulder Left 2 VWOrdered By: Darrel Yun on 01-18-2022 [facility] Work Phone: Basophil percentageon 2021 Chloride [Moles/Vol] 106 mmol/L 98-107 [facility] Work Phone: Glucose [Mass/Vol] 62 mg/dL 74-106 [facility] Work Phone: Potassium [Moles/Vol] 3.6 mmol/L 3.5-5.1 [facility] Work Phone: Sodium [Moles/Vol] 140 mmol/L 136-145 [facility] Work Phone: WBC (Bld) [#/Vol] 6.5 10*3/uL 4.4-11.0 [facility] Work Phone: Blood erythrocytes count (nu mber/volume)on 01-17-2022 RBC (Bld) [#/Vol] 3.92 10*6/uL 4.2-5.4 [facility] Work Phone: Blood hemoglobin measurement (mass/volume)on 01-17-2022 Hemoglobin (Bld) [Mass/Vol] 11.2 g/dL 12.0-15.0 [facility] Work Phone: Blood platelet mean volumeon 01-17-2022 Platelet mean volume (Bld) [Entitic vol] 9.9 fL 6.2-12.0 [facility] Work Phone: Determination of erythrocyte mean corpuscular volume (MCV)on 01-17-2022 MCV (RBC) [Entitic vol] 89.5 fL 81-99 [facility] Work Phone: Hematocrit Auto (Bld) [Volum e fraction]on 01-17-2022 Hematocrit (Bld) [Volume fraction] 35.1 % 37-47 [facility] Work Phone: INR in Blood by Coagulation assayon 01-17-2022 INR Coag (Bld) [Relative time] 1.0 {INR} [facility] Work Phone: Laboratory - Chemistry and C hemistry - challengeon 01-17-2022 CO2 [Moles/Vol] 29.0 mmol/L 21.0-32.0 [facility] Work Phone: Urea nitrogen/Creatinine [Mass ratio] 11.8 mg/mg 10-20 [facility] Work Phone: Laboratory - Coagulationon 0 01-17-2022 PT Coag (PPP) [Time] 12.7 s 11.7-14.9 [facility] Work Phone: Laboratory - Hematology and Cell countson 01-17-2022 Erythrocyte distribution width (RBC) [Entitic vol] 45.7 fL 35.1-43.9 [facility] Work Phone: Erythrocyte distribution width (RBC) [Ratio] 14.1 % 11.6-14.6 [facility] Work Phone: MCH (RBC) [Entitic mass] 28.6 pg 27.0-32.0 [facility] Work Phone: MCHC Auto (RBC) [Mass/Vol]on 01-17-2022 MCHC (RBC) [Mass/Vol] 31.9 g/dL 32-36 [facility] Work Phone: No Panel Informationon 01-17 Estimated GFR (MDRD) Amer 110 mL/min >60 [facility] Work Phone: Comment on above: GFR Calc Estimated GFR (MDRD) Non-Af Amer 91 mL/min >60 [facility] Work Phone: Comment on above: Non- GFR Calc Platelets bldon 01-17-2022 Platelets (Bld) [#/Vol] 263 10*3/uL 150-450 [facility] Work Phone: Serum or plasma calcium carlie urement (mass/volume)on 01-17-2022 Calcium [Mass/Vol] 8.5 mg/dL 8.5-10.1 [facility] Work Phone: Serum or plasma creatinine m easurement (mass/volume)on 01-17-2022 Creatinine [Mass/Vol] 0.68 mg/dL 0.55-1.02 [facility] Work Phone: Comment on above: The validity of the calculated GFR & GFRAA in patients over 70 years has not been determined. Clinical correlation is essential. Serum or plasma urea nitroge n measurement (mass/volume)on 01-17-2022 Urea nitrogen [Mass/Vol] 8 mg/dL 7-18 [facility] Work Phone: Thin prep Papanicolaou smear with manual screeningon 01-17-2022 Thin prep Papanicolaou smear with manual screening 5 5-15 [facility] Work Phone: Vit D 25-OH, Totalon 01-06- 022 Vit D 25-OH, Total 27 ng/mL Low 30-100 [facility] Comment on above: Result Comment: Ther apy is based on measurement of Total 25-OHD with the following classification levels: Less than 20 ng/mL: Indicative of Vit D deficiency 20-30 ng/mL: Suggests Vit D insufficiency Optimal: Greater than or equal to 30 ng/mL Test performed by [employer] Competitive Immunoassay, measuring Total Vitamin D, not individual fractions. Performed By: #### B 12 #### [facility] [address], [place] #### [id number] #### [facility] [address] [place] [address] Vitamin B12on 01-06-2022 Cobalamin (Vitamin B12) [Mass/Vol] 355 pg/mL Normal 239-931 [facility] Comment on above: Performed By: #### B 12 #### [facility] [address], [place] #### [id number] #### [facility] [address] [place] [address] Add on test from HISon 01-05 Add on test from HIS Rejected Normal [facility] Comment on above: Result Comment: No s pecimen available for addon. need ylt specimen for vit d. b12 has already been ordered. 01/05/2022 12:31 Performed By: #### A DDON #### [facility] [address], [place] Add on test from HIS Rejected Normal [facility] Comment on above: Result Comment: need s a yellow top for vitamin D Performed By: #### A DDON #### [facility] [address], [place] CT Head or Brain w/o Contras ton 01-05-2022 CT Head or Brain w/o Contrast Patient Name: ANDRE BLANCA Computed Tomography ACCESSION EXAM DATE/TIME PROCEDURE ORDERING PROVIDER [id number] 01/04/2022 23:[address] Head or Brain w/o BRANDON YEAGER PETER J Contrast CPT code 18771 Reason For Exam (CT Head or Brain [...] Transcribed Date and Time: 01/05/2022 5:34 Normal [facility] Comp Panel with Mg Reflexon 01-05-2022 ALP [Catalytic activity/Vol] 143 U/L High 38-126 [facility] Comment on above: Performed By: #### C MP3M, TSH5, HEMDF, B12 #### [facility] [address] [place], [place] ALT [Catalytic activity/Vol] 12 U/L Normal 0-34 [facility] Comment on above: Result Comment: The ALT test is performed by an updated assay method. Please note that the reference intervals have been changed and are now sex specific. Performed By: #### C MP3M, TSH5, HEMDF, B12 #### [facility] [address], [place] AST [Catalytic activity/Vol] 28 U/L Normal 15-46 [facility] Comment on above: Performed By: #### C MP3M, TSH5, HEMDF, B12 #### [facility] [address], [place] Bilirubin [Mass/Vol] 0.2 mg/dL Normal 0.2-1.3 [facility] Comment on above: Performed By: #### C MP3M, TSH5, HEMDF, B12 #### [facility] [address] [place] [address] Calcium [Mass/Vol] 8.7 mg/dL Normal 8.4-10.4 [facility] Comment on above: Performed By: #### C MP3M, TSH5, HEMDF, B12 #### [address] [address] Creatinine [Mass/Vol] 1.23 mg/dL Normal 0.52-1.25 [facility] Comment on above: Performed By: #### C MP3M, TSH5, HEMDF, B12 #### [address] [address] GFR/1.73 sq M.predicted among blacks MDRD (S/P/Bld) [Vol rate/Area] 50.6 mL/min/{1.73_m2} Abnormal >60 [facility] Comment on above: Performed By: #### C MP3M, TSH5, HEMDF, B12 #### [address] [place] [address] GFR/1.73 sq M.predicted among non-blacks MDRD (S/P/Bld) [Vol rate/Area] 43.6 mL/min/{1.73_m2} Abnormal >60 [facility] Comment on above: Result Comment: KDIG O [...] #### C MP3M, TSH5, HEMDF, B12 #### [address] [place] [address] Glucose [Mass/Vol] 116 mg/dL High 70-100 [facility] Comment on above: Performed By: #### C MP3M, TSH5, HEMDF, B12 #### [facility] [address] [place] [address] Protein [Mass/Vol] 7.1 g/dL Normal 6.3-8.2 [facility] Comment on above: Performed By: #### C MP3M, TSH5, HEMDF, B12 #### [facility] [address] [place] [address] Urea nitrogen [Mass/Vol] 13 mg/dL Normal 9-20 [facility] Comment on above: Performed By: #### C MP3M, TSH5, HEMDF, B12 #### [facility] [address] [place] [address] Anion gap [Moles/Vol] 11 mmol/L Normal 3-13 [facility] Comment on above: Performed By: #### C MP3M, TSH5, HEMDF, B12 #### [facility] [address] [place] [address] CO2 [Moles/Vol] 24 mmol/L Normal 22-30 [facility] Comment on above: Performed By: #### C MP3M, TSH5, HEMDF, B12 #### [facility] [address] [place] [address] Albumin [Mass/Vol] 3.9 g/dL Normal 3.5-5.0 [facility] Comment on above: Performed By: #### C MP3M, TSH5, HEMDF, B12 #### [facility] [address] [place] [address] Potassium [Moles/Vol] 3.8 mmol/L Normal 3.5-5.1 [facility] Comment on above: Performed By: #### C MP3M, TSH5, HEMDF, B12 #### [facility] [address] [place] [address] Chloride [Moles/Vol] 103 mmol/L Normal 98-107 [facility] Comment on above: Performed By: #### C MP3M, TSH5, HEMDF, B12 #### [facility] [address] [place] [address] Sodium [Moles/Vol] 138 mmol/L Normal 135-145 [facility] Comment on above: Performed By: #### C MP3M, TSH5, HEMDF, B12 #### [facility] [address] [place] [address] Echo Complete w/wo Contrasto n 01-05-2022 Echo Complete w/wo Contrast Patient Name: ANDRE BLANCA Ultrasound ACCESSION EXAM DATE/TIME PROCEDURE ORDERING PROVIDER [id number] 01/05/2022 11:40 EDT Echo Complete w/wo BEN COCHRAN Reason For Exam (Echo Complete w/wo Contrast) Recurrent syncope; labile BP Addendum TRANSTHORACIC ECHOCARDIOGRAM (AMENDED REPORT ) PATIENT: Andre Blanca STUDY DATE: 01/05/2022 Lila : 1950 AGE: 71 HT/WT: 170.2 cm (67 93 kg (204.6 in) lb) GENDER: F BP: 158 / 74 LOCATION: [facility] PATIENT Inpatient main STATUS: *ORDERING PHYSICIAN: * Ben Cochran MD *READING PHYSICIAN: * Aj, *HISTOLOGY SPECIALIST: * eGnaro Camacho [facility] ----- INDICATIONS: Recurrent syncope; labile bp. ----- [...] mm Hg (more content not included)... Normal [facility] Hemogram w/ Autodiffon 01-05 Abs Baso Cnt 0.1 10*3/uL Normal 0.0-0.2 [facility] Comment on above: Performed By: #### C MP3M, TSH5, HEMDF, B12 #### [facility] [employer] [facility] [address] [place] [address] Abs Neutrophile Cnt 6.4 10*3/uL Normal 1.8-7.0 [facility] Comment on above: Performed By: #### C MP3M, TSH5, HEMDF, B12 #### [facility] [employer] [address] [place] [address] Basophils/100 WBC (Bld) 1.1 % Normal 0.0-2.0 [facility] Comment on above: Performed By: #### C MP3M, TSH5, HEMDF, B12 #### [facility] [employer] [address] [place] [address] Eosinophils (Bld) [#/Vol] 0.5 10*3/uL Normal 0.0-0.5 [facility] Comment on above: Performed By: #### C MP3M, TSH5, HEMDF, B12 #### [address], [place] Eosinophils/100 WBC (Bld) 4.9 % Normal 1.0-6.0 [facility] Comment on above: Performed By: #### C MP3M, TSH5, HEMDF, B12 #### [address], [place] Erythrocyte distribution width (RBC) [Ratio] 15.1 % High 11.5-14.5 [facility] Comment on above: Performed By: #### C MP3M, TSH5, HEMDF, B12 #### [address], [place] Granulocytes/100 WBC (Bld) 62.5 % Normal 40.0-80.0 [facility] Comment on above: Performed By: #### C MP3M, TSH5, HEMDF, B12 #### [address], [place] Hematocrit (Bld) [Volume fraction] 38.6 % Normal 35.0-47.0 [facility] Comment on above: Performed By: #### C MP3M, TSH5, HEMDF, B12 #### [address], [place] Hemoglobin (Bld) [Mass/Vol] 12.5 g/dL Normal 11.7-16.0 [facility] Comment on above: Performed By: #### C MP3M, TSH5, HEMDF, B12 #### [address], [place] Lymphocytes (Bld) [#/Vol] 2.5 10*3/uL Normal 1.0-4.3 [facility] Comment on above: Performed By: #### C MP3M, TSH5, HEMDF, B12 #### [address], [place] Lymphocytes/100 WBC (Bld) 24.5 % Normal 20.0-40.0 [facility] Comment on above: Performed By: #### C MP3M, TSH5, HEMDF, B12 #### [address], [place] MCH (RBC) [Entitic mass] 28.1 pg Normal 26.0-34.0 [facility] Comment on above: Performed By: #### C MP3M, TSH5, HEMDF, B12 #### [address], [place] MCHC 32.3 % Normal 32.0-36.0 [facility] Comment on above: Performed By: #### C MP3M, TSH5, HEMDF, B12 #### [address] [place], [place] MCV (RBC) [Entitic vol] 87.1 fL Normal 79.0-98.0 [facility] Comment on above: Performed By: #### C MP3M, TSH5, HEMDF, B12 #### [address], [place] Monocytes (Bld) [#/Vol] 0.7 10*3/uL Normal 0.0-0.8 [facility] Comment on above: Performed By: #### C MP3M, TSH5, HEMDF, B12 #### [address] [place], [place] Monocytes/100 WBC (Bld) 7.0 % Normal 2.0-10.0 [facility] Comment on above: Performed By: #### C MP3M, TSH5, HEMDF, B12 #### [address], [place] Platelet mean volume (Bld) [Entitic vol] 8.2 fL Normal 7.4-12.4 [facility] Comment on above: Result Comment: MPV is a calculated measurement using platelet volume ratio. Performed By: #### C MP3M, TSH5, HEMDF, B12 #### [address] [place], [place] Platelets (Bld) [#/Vol] 292 10*3/uL Normal 140-440 [facility] Comment on above: Performed By: #### C MP3M, TSH5, HEMDF, B12 #### [facility] [address], [place] RBC (Bld) [#/Vol] 4.43 10*6/uL Normal 3.80-5.20 [facility] Comment on above: Performed By: #### C MP3M, TSH5, HEMDF, B12 #### [facility] [address], [place] WBC (Bld) [#/Vol] 10.3 10*3/uL Normal 3.6-10.7 [facility] Comment on above: Performed By: #### C MP3M, TSH5, HEMDF, B12 #### [address], [place] SARS-CoV-2 Antigenon 022 SARS-CoV-2 Antigen Negative Normal Negative [facility] Comment on above: Result Comment: A negative result does not rule out the possibility of SARS-CoV-2 infection. NAAT-based methods should be considered for symptomatic patients presenting greater than seven days after onset of symptoms. Method: Lateral flow immunoassay. Fact sheets for healthcare providers and patients can be found at the following sites: https://www.fda.gov/media/940359/download https://www.fda.gov/media/847338/download Performed By: #### C OVAG #### [address], [place] Thyroid Stim. Hormoneon -2 Thyroid Stim. Hormone < 0.015 Low 0.465-4.680 [facility] Comment on above: Performed By: #### C MP3M, TSH5, HEMDF, B12 #### [address], [place] Vit D 25-OH, Totalon 022 Vit D 25-OH, Total 42 ng/mL Normal 30-100 [facility] Comment on above: Result Comment: Ther apy is based on measurement of Total 25-OHD with the following classification levels: Less than 20 ng/mL: Indicative of Vit D deficiency 20-30 ng/mL: Suggests Vit D insufficiency Optimal: Greater than or equal to 30 ng/mL Test performed by [employer] Competitive Immunoassay, measuring Total Vitamin D, not individual fractions. Performed By: #### V D25H ####[facility] [place] [address] Vitamin B12on 01-05-2022 Cobalamin (Vitamin B12) [Mass/Vol] 400 pg/mL Normal 239-931 [facility] Comment on above: Performed By: #### C MP3M, TSH5, HEMDF, B12 ####[facility] [place] [address] Basic Metabolic Panelon 12-13 Anion gap [Moles/Vol] 7 mmol/L Normal 3-13 [facility] Comment on above: Performed By: #### T ROPN, LACT3, PT/AP, ETOH4, BMP3, HEMOG ####[facility] [place] [address] Calcium [Mass/Vol] 8.6 mg/dL Normal 8.4-10.4 [facility] Comment on above: Performed By: #### T ROPN, LACT3, PT/AP, ETOH4, BMP3, HEMOG ####[facility] [place] [address] CO2 [Moles/Vol] 26 mmol/L Normal 22-30 [facility] Comment on above: Performed By: #### T ROPN, LACT3, PT/AP, ETOH4, BMP3, HEMOG ####[facility] [place] [address] Glucose [Mass/Vol] 104 mg/dL High 70-100 [facility] Comment on above: Performed By: #### T ROPN, LACT3, PT/AP, ETOH4, BMP3, HEMOG ####[facility] [place] [address] Urea nitrogen [Mass/Vol] 11 mg/dL Normal 9-20 [facility] Comment on above: Performed By: #### T ROPN, LACT3, PT/AP, ETOH4, BMP3, HEMOG ####[address] [place], [place] Creatinine [Mass/Vol] 1.12 mg/dL Normal 0.52-1.25 [facility] Comment on above: Performed By: #### T ROPN, LACT3, PT/AP, ETOH4, BMP3, HEMOG ####[facility] [place], [place] GFR/1.73 sq M.predicted among blacks MDRD (S/P/Bld) [Vol rate/Area] 56.6 mL/min/{1.73_m2} Abnormal >60 [facility] Comment on above: Performed By: #### T ROPN, LACT3, PT/AP, ETOH4, BMP3, HEMOG ####[address] [place], [place] GFR/1.73 sq M.predicted among non-blacks MDRD (S/P/Bld) [Vol rate/Area] 48.9 mL/min/{1.73_m2} Abnormal >60 [facility] Comment on above: Result Comment: KDIG O [...] T ROPN, LACT3, PT/AP, ETOH4, BMP3, HEMOG ####[facility] [employer] [id number] [place], [place] Chloride [Moles/Vol] 104 mmol/L Normal 98-107 [facility] Comment on above: Performed By: #### T ROPN, LACT3, PT/AP, ETOH4, BMP3, HEMOG ####[facility] [place] [address] Potassium [Moles/Vol] 3.7 mmol/L Normal 3.5-5.1 [facility] Comment on above: Result Comment: Slig htly hemolysed, interpret with caution. Performed By: #### T ROPN, LACT3, PT/AP, ETOH4, BMP3, HEMOG ####[facility] [place], [place] Sodium [Moles/Vol] 137 mmol/L Normal 135-145 [facility] Comment on above: Performed By: #### T ROPN, LACT3, PT/AP, ETOH4, BMP3, HEMOG ####[address] [place], [place] CR Chest Portableon 01-05-20 22 CR Chest Portable Patient Name: ANDRE BLANCA Diagnostic Radiology ACCESSION EXAM DATE/TIME PROCEDURE ORDERING PROVIDER [id number] 01/04/2022 11:28 EDT CR Chest Portable JESSIKA COLLINS CPT code 22166 Reason For Exam (CR Chest Portable) chest [...] Dictated: 01/04/2022 11:35 am Dictating Physician: MD LAONSO ANTHONY J Signed Date and Time: 01/04/2022 11:36 am Signed by: MD ALONSO ANTHONY J Transcribed Date and Time: 01/04/2022 11:35 Normal [facility] CR Elbow 3+ Views Righton CR Elbow 3+ Views Right Patient Name: ANDRE BLANCA Diagnostic Radiology ACCESSION EXAM DATE/TIME PROCEDURE ORDERING PROVIDER [id number] 01/04/2022 11:52 EDT CR Elbow 3+ Views Right [id number] GERONIMO ESPINOSA CPT code 13006 Reason For Exam (CR Elbow 3+ Views [...] Transcribed Date and Time: 01/04/2022 12:06 Normal [facility] CR Femur 2+ Views Righton CR Femur 2+ Views Right Patient Name: ANDRE BLANCA Diagnostic Radiology ACCESSION EXAM DATE/TIME PROCEDURE ORDERING PROVIDER [id number] 01/04/2022 11:52 EDT CR Femur 2+ Views Right [id number] GERONIMO ESPNIOSA n CPT code 96386 Reason For Exam (CR Femur 2+ Views [...] Transcribed Date and Time: 01/04/2022 12:05 Normal [facility] CR Pelvis 1 or 2 Viewson CR Pelvis 1 or 2 Views Patient Name: ANDRE BLANCA Diagnostic Radiology ACCESSION EXAM DATE/TIME PROCEDURE ORDERING PROVIDER [id number] 01/04/2022 11:28 EDT CR Pelvis 1 or 2 Views JESSIKA COLLINS CPT code 97192 Reason For Exam (CR Pelvis 1 or [...] Transcribed Date and Time: 01/04/2022 11:34 Normal [facility] CR Spine Cervical 2 or 3 Vie wson 01-04-2022 CR Spine Cervical 2 or 3 Views Patient Name: ANDRE BLANCA Diagnostic Radiology ACCESSION EXAM DATE/TIME PROCEDURE ORDERING PROVIDER [id number] 01/04/2022 13:47 EDT CR Spine Cervical 2 or 3 [id number] -GERONIMO RODRIGUEZ Views CPT code 77679 Reason For Exam (CR Spine Cervical 2 [...] I Transcribed Date and Time: 01/04/2022 2:05 [facility] CT Head or Brain w/o Contras ton 01-04-2022 CT Head or Brain w/o Contrast Patient Name: ANDRE BLANCA Computed Tomography ACCESSION EXAM DATE/TIME PROCEDURE ORDERING PROVIDER [id number] 01/04/2022 11:[address] Head or Brain w/o JESSIKA COLLINS Contrast CPT code 53426 Reason For Exam (CT Head or Brain [...] Transcribed Date and Time: 01/04/2022 11:54 Normal [facility] CT Spine Cervical w/o Contra ston 01-04-2022 CT Spine Cervical w/o Contrast Patient Name: ANDRE BLANCA [facility]#: [id number] Computed Tomography ACCESSION EXAM DATE/TIME PROCEDURE ORDERING PROVIDER [id number] 01/04/2022 11:[address] Spine Cervical w/o JESSKIA COLLINS Contrast CPT code 62012 Reason For Exam (CT Spine Cervical w/o [...] Transcribed Date and Time: 01/04/2022 11:56 Normal [facility] ED Provider Noteon ED Provider Note ACH [...] (HCC) ? COPD (chronic obstructive pulmonary disease) ([facility]) ? Depression ? DVT (deep venous thrombosis) ([facility]) ? Fibromyalgia ? Hyperlipidemia ? Hypothyroid ? [...] MG TABLET CHOLECALCIFEROL (VITAMIN D3) 1.25 MG (17200 UT) CAPS Take by mouth once a [...] Alcohol use: (more content not included)... Normal [facility] Ethanol Serum/Plasmaon 01-04 Ethanol-Serum/Plasma < 0.010 Normal 0.000-0.010 [facility] Comment on above: Result Comment: NOTE : This result is for medical treatment only. Analysis performed using non-forensic procedures. Performed By: #### T ROPN, LACT3, PT/AP, ETOH4, BMP3, HEMOG ####[facility] [employer] [id number] [place] [address] Hemogramon 01-04-2022 Erythrocyte distribution width (RBC) [Ratio] 15.1 % High 11.5-14.5 [facility] Comment on above: Performed By: #### T ROPN, LACT3, PT/AP, ETOH4, BMP3, HEMOG ####[facility] [employer] [id number] [place], [place] Hematocrit (Bld) [Volume fraction] 36.8 % Normal 35.0-47.0 [facility] Comment on above: Performed By: #### T ROPN, LACT3, PT/AP, ETOH4, BMP3, HEMOG ####[address] [place], [place] Hemoglobin (Bld) [Mass/Vol] 12.0 g/dL Normal 11.7-16.0 [facility] Comment on above: Performed By: #### T ROPN, LACT3, PT/AP, ETOH4, BMP3, HEMOG ####[address] MCH (RBC) [Entitic mass] 28.3 pg Normal 26.0-34.0 [facility] Comment on above: Performed By: #### T ROPN, LACT3, PT/AP, ETOH4, BMP3, HEMOG ####[address] MCHC 32.5 % Normal 32.0-36.0 [facility] Comment on above: Performed By: #### T ROPN, LACT3, PT/AP, ETOH4, BMP3, HEMOG ####[address] [place], [place] MCV (RBC) [Entitic vol] 87.0 fL Normal 79.0-98.0 [facility] Comment on above: Performed By: #### T ROPN, LACT3, PT/AP, ETOH4, BMP3, HEMOG ####[address] Platelet mean volume (Bld) [Entitic vol] 8.0 fL Normal 7.4-12.4 [facility] Comment on above: Result Comment: MPV is a calculated measurement using platelet volume ratio. Performed By: #### T ROPN, LACT3, PT/AP, ETOH4, BMP3, HEMOG ####[address] Platelets (Bld) [#/Vol] 303 10*3/uL Normal 140-440 [facility] Comment on above: Performed By: #### T ROPN, LACT3, PT/AP, ETOH4, BMP3, HEMOG ####[address] [place], [place] RBC (Bld) [#/Vol] 4.23 10*6/uL Normal 3.80-5.20 [facility] Comment on above: Performed By: #### T ROPN, LACT3, PT/AP, ETOH4, BMP3, HEMOG ####[address] [place], [place] WBC (Bld) [#/Vol] 6.4 10*3/uL Normal 3.6-10.7 [facility] Comment on above: Performed By: #### T ROPN, LACT3, PT/AP, ETOH4, BMP3, HEMOG ####[address] Lactic Acidon 01-04-2022 Lactate [Moles/Vol] 1.9 mmol/L Normal 0.7-2.0 [facility] Comment on above: Performed By: #### T ROPN, LACT3, PT/AP, ETOH4, BMP3, HEMOG ####[address] Protime AND APTTon aPTT Coag (Bld) [Time] 28.5 s Normal 20.0-30.5 [facility] Comment on above: Result Comment: NOTE : The therapeutic time for Heparin anticoagulation, based on Xa activity inhibition, is an APTT of 46-80 seconds. Performed By: #### T ROPN, LACT3, PT/AP, ETOH4, BMP3, HEMOG ####[address] INR 1.1 Normal 0.9-1.1 [facility] Comment on above: Result Comment: Que [...] T ROPN, LACT3, PT/AP, ETOH4, BMP3, HEMOG ####[address] [place], [place] PT Coag (PPP) [Time] 11.4 s Normal 9.0-12.0 [facility] Comment on above: Result Comment: . Performed By: #### T ROPN, LACT3, PT/AP, ETOH4, BMP3, HEMOG ####[address] [place], [place] TS GELon 01-04-2022 TS GEL ABO Group: O Rh, Gel: POS Antibody Screen Gel: NEG Normal [facility] Comment on above: Performed By: #### T SGL ####[facility] Troponin Ion 01-04-2022 Troponin I.cardiac [Mass/Vol] ng/mL Normal 0.000-0.034 [facility] Comment on above: Result Comment: . Performed By: #### T ROPN, LACT3, PT/AP, ETOH4, BMP3, HEMOG ####[address] [place], [place] CT Up Ext w/o Contrast Lefto n 12-27-2021 CT Up Ext w/o Contrast Left Patient Name: ANDRE BLANCA Computed Tomography ACCESSION EXAM DATE/TIME PROCEDURE ORDERING PROVIDER [id number] 12/27/2021 14:[address] Up Ext w/o Contrast MD JB, KIM Hager Left CPT code 74417 Reason For Exam (CT Up Ext w/o [...] Transcribed Date and Time: 12/27/2021 3:32 Normal [facility] Basophil percentageon 2021 Cholesterol [Mass/Vol] 124 mg/dL <200 [facility] Work Phone: Comment on above: <200 mg/dL Desirable 200-240 mg/dL Borderline >240 mg/dL High Risk Triglyceride [Mass/Vol] 154 mg/dL <199 [facility] Work Phone: Comment on above: The drugs N-Acetylcy steine and Metamizole may falsely depress this assay.Serum Triglycerides Reference Interval Normal <150 mg/dL Borderline high 150 - 199 mg/dL High 200 - 499 mg/dL Very High > or = 500 mg/dL Serum or plasma cholesterol in HDL measurement (mass/volume)on 12-20-2021 Cholesterol in HDL [Mass/Vol] 33 mg/dL >40 [facility] Work Phone: Comment on above: The drugs N-Acetylcy steine and Metamizole may falsely depress this assay. Reference Range HDL <40 mg/dL Low HDL Cholesterol HDL >or= 60 mg/dL High HDL Cholesterol Serum or plasma cholesterol in VLDL measurement (mass/volume)on 12-20-2021 Cholesterol in VLDL [Mass/Vol] 31 mg/dL 5-40 [facility] Work Phone: Serum or plasma low density lipoprotein (LDL) cholesterol measurement (mass/volume)on 12-20-2021 Cholesterol in LDL [Mass/Vol] 60 mg/dL 0-130 [facility] Work Phone: Absolute lymphocyte counton 12-13-2021 Lymphocytes Auto (Unsp spec) [#/Vol] 2.07 10*3/uL 0.83-4.51 [facility] Work Phone: Basophil percentageon 2021 Basophils/100 WBC (Bld) 1.3 % 0-1 [facility] Work Phone: Chloride [Moles/Vol] 107 mmol/L 98-107 [facility]: Eosinophils/100 WBC (Bld) 5.3 % 0-5 [facility] Work Phone: Glucose [Mass/Vol] 96 mg/dL 74-106 [facility] Work Phone: Neutrophils (Bld) [#/Vol] 4.1 10*3/uL 2.0-7.7 [facility] Work Phone: Neutrophils/100 WBC (Bld) 57.1 % 47-70 [facility] Work Phone: Potassium [Moles/Vol] 4.0 mmol/L 3.5-5.1 [facility] Work Phone: Comment on above: Moderate Hemolysis, Result may be falsely increased. Sodium [Moles/Vol] 137 mmol/L 136-145 [facility] Work Phone: WBC (Bld) [#/Vol] 7.2 10*3/uL 4.4-11.0 [facility] Work Phone: Blood erythrocytes count (nu mber/volume)on 12-13-2021 RBC (Bld) [#/Vol] 4.23 10*6/uL 4.2-5.4 [facility] Work Phone: Blood hemoglobin measurement (mass/volume)on 12-13-2021 Hemoglobin (Bld) [Mass/Vol] 12.0 g/dL 12.0-15.0 [facility] Work Phone: Blood lymphocytes/100 leukoc yteson 12-13-2021 Lymphocytes/100 WBC (Bld) 28.9 % 19-41 [facility] Work Phone: Blood monocytes/100 leukocyt eson 12-13-2021 Monocytes/100 WBC (Bld) 7.1 % 0-10 [facility] Work Phone: Blood platelet mean volumeon 12-13-2021 Platelet mean volume (Bld) [Entitic vol] 10.2 fL 6.2-12.0 [facility] Work Phone: Determination of erythrocyte mean corpuscular volume (MCV)on 12-13-2021 MCV (RBC) [Entitic vol] 94.6 fL 81-99 [facility] Work Phone: Hematocrit Auto (Bld) [Volum e fraction]on 12-13-2021 Hematocrit (Bld) [Volume fraction] 40.0 % 37-47 [facility] Work Phone: Laboratory - Chemistry and C hemistry - challengeon 12-13-2021 CO2 [Moles/Vol] 24.0 mmol/L 21.0-32.0 [facility] Work Phone: Urea nitrogen/Creatinine [Mass ratio] 18.7 mg/mg 10-20 [facility] Work Phone: Laboratory - Hematology and Cell countson 12-13-2021 Erythrocyte distribution width (RBC) [Entitic vol] 46.8 fL 35.1-43.9 [facility] Work Phone: Erythrocyte distribution width (RBC) [Ratio] 13.5 % 11.6-14.6 [facility] Work Phone: Immature granulocytes/100 WBC (Bld) 0.300 % 0.0-0.9 [facility] Work Phone: Comment on above: IG% - Immature Granu locytes (promyelocytes, myelocytes and metamyelocytes) > 1% indicates that a LEFT SHIFT is Present. MCH (RBC) [Entitic mass] 28.4 pg 27.0-32.0 [facility] Work Phone: Nucleated RBC/100 WBC (Bld) [Ratio] 0 % 0-5 [facility] Work Phone: MCHC Auto (RBC) [Mass/Vol]on 12-13-2021 MCHC (RBC) [Mass/Vol] 30.0 g/dL 32-36 [facility] Work Phone: No Panel Informationon 12-13 Estimated GFR (MDRD) Amer 98 mL/min >60 [facility] Work Phone: Comment on above: GFR Calc Estimated GFR (MDRD) Non-Af Amer 81 mL/min >60 [facility] Work Phone: Comment on above: Non- GFR Calc Platelets bldon 12-13-2021 Platelets (Bld) [#/Vol] 258 10*3/uL 150-450 [facility] Work Phone: Serum or plasma calcium carlie urement (mass/volume)on 12-13-2021 Calcium [Mass/Vol] 8.8 mg/dL 8.5-10.1 [facility] Work Phone: Serum or plasma creatinine m easurement (mass/volume)on 12-13-2021 Creatinine [Mass/Vol] 0.75 mg/dL 0.55-1.02 [facility] Work Phone: Comment on above: The validity of the calculated GFR & GFRAA in patients over 70 years has not been determined. Clinical correlation is essential. Serum or plasma urea nitroge n measurement (mass/volume)on 12-13-2021 Urea nitrogen [Mass/Vol] 14 mg/dL 7-18 [facility] Work Phone: Thin prep Papanicolaou smear with manual screeningon 12-13-2021 Thin prep Papanicolaou smear with manual screening 6 5-15 [facility] Work Phone: Basophil percentageon 2021 Bilirubin [Mass/Vol] 0.20 mg/dL 0.20-1.00 [facility] Work Phone: Comment on above: For patients on eltr ombopag therapy, use of Dimension [place] TBIL is not recommended. Chloride [Moles/Vol] 106 mmol/L 98-107 [facility] Work Phone: Glucose [Mass/Vol] 115 mg/dL 74-106 [facility] Work Phone: Comment on above: Fasting Glucose resu lt from 100 to 125 mg/dL suggests IMPAIRED HOMEOSTASIS per A.D.A. criteria. Potassium [Moles/Vol] 3.1 mmol/L 3.5-5.1 [facility] Work Phone: Protein [Mass/Vol] 6.4 g/dL 6.4-8.2 [facility] Work Phone: Sodium [Moles/Vol] 142 mmol/L 136-145 [facility] Work Phone: WBC (Bld) [#/Vol] 7.3 10*3/uL 4.4-11.0 [facility] Work Phone: Blood erythrocytes count (nu mber/volume)on 11-29-2021 RBC (Bld) [#/Vol] 3.88 10*6/uL 4.2-5.4 [facility] Work Phone: Blood hemoglobin measurement (mass/volume)on 11-29-2021 Hemoglobin (Bld) [Mass/Vol] 11.0 g/dL 12.0-15.0 [facility] Work Phone: Blood platelet mean volumeon 11-29-2021 Platelet mean volume (Bld) [Entitic vol] 10.3 fL 6.2-12.0 [facility] Work Phone: Determination of erythrocyte mean corpuscular volume (MCV)on 11-29-2021 MCV (RBC) [Entitic vol] 88.7 fL 81-99 [facility] Work Phone: Direct bilirubinon 2 Bilirubin.direct [Mass/Vol] 0.09 mg/dL 0.00-0.30 [facility] Work Phone: Hematocrit Auto (Bld) [Volum e fraction]on 11-29-2021 Hematocrit (Bld) [Volume fraction] 34.4 % 37-47 [facility] Work Phone: Laboratory - Chemistry and C hemistry - challengeon 11-29-2021 ALP [Catalytic activity/Vol] 128 U/L 45-117 [facility] Work Phone: ALT [Catalytic activity/Vol] 14 U/L 13-56 [facility] Work Phone: CO2 [Moles/Vol] 31.0 mmol/L 21.0-32.0 [facility] Work Phone: Globulin (S) [Mass/Vol] 3.7 g/dL 2.2-4.2 [facility] Work Phone: Urea nitrogen/Creatinine [Mass ratio] 10.8 mg/mg 10-20 [facility] Work Phone: Laboratory - Hematology and Cell countson 11-29-2021 Erythrocyte distribution width (RBC) [Entitic vol] 42.3 fL 35.1-43.9 [facility] Work Phone: Erythrocyte distribution width (RBC) [Ratio] 13.1 % 11.6-14.6 [facility] Work Phone: MCH (RBC) [Entitic mass] 28.4 pg 27.0-32.0 [facility] Work Phone: MCHC Auto (RBC) [Mass/Vol]on 11-29-2021 MCHC (RBC) [Mass/Vol] 32.0 g/dL 32-36 [facility] Work Phone: No Panel Informationon 11-29 Carbamazepine (Tegretol) Level 9.6 ug/mL 4.0-12.0 [facility] Work Phone: Estimated GFR (MDRD) Amer 99 mL/min >60 [facility] Work Phone: Comment on above: GFR Calc Estimated GFR (MDRD) Non-Af Amer 81 mL/min >60 [facility] Work Phone: Comment on above: Non- GFR Calc Platelets bldon 11-29-2021 Platelets (Bld) [#/Vol] 277 10*3/uL 150-450 [facility] Work Phone: Serum or plasma albumin carlie urement (mass/volume)on 11-29-2021 Albumin [Mass/Vol] 2.7 g/dL 3.2-5.0 [facility] Work Phone: Serum or plasma albumin/glob ulin mass ratioon 11-29-2021 Albumin/Globulin [Mass ratio] 0.7 {ratio} 0.9-2.4 [facility] Work Phone: Serum or plasma calcium carlie urement (mass/volume)on 11-29-2021 Calcium [Mass/Vol] 8.2 mg/dL 8.5-10.1 [facility] Work Phone: Serum or plasma creatinine m easurement (mass/volume)on 11-29-2021 Creatinine [Mass/Vol] 0.74 mg/dL 0.55-1.02 [facility] Work Phone: Comment on above: The validity of the calculated GFR & GFRAA in patients over 70 years has not been determined. Clinical correlation is essential. Serum or plasma urea nitroge n measurement (mass/volume)on 11-29-2021 Urea nitrogen [Mass/Vol] 8 mg/dL -18 [facility] Work Phone: Thin prep Papanicolaou smear with manual screeningon 11-29-2021 Thin prep Papanicolaou smear with manual screening 13 U/L 15-37 [facility] Work Phone: Thin prep Papanicolaou smear with manual screening 5 5-15 [facility] Work Phone: Basophil percentageon 2021 Chloride [Moles/Vol] 106 mmol/L 98-107 [facility] Work Phone: Glucose [Mass/Vol] 89 mg/dL 74-106 [facility] Work Phone: Potassium [Moles/Vol] 3.7 mmol/L 3.5-5.1 [facility] Work Phone: Sodium [Moles/Vol] 141 mmol/L 136-145 [facility] Work Phone: WBC (Bld) [#/Vol] 6.9 10*3/uL 4.4-11.0 [facility] Work Phone: Blood erythrocytes count (nu mber/volume)on 11-05-2021 RBC (Bld) [#/Vol] 4.16 10*6/uL 4.2-5.4 [facility] Work Phone: Blood hemoglobin measurement (mass/volume)on 11-05-2021 Hemoglobin (Bld) [Mass/Vol] 12.3 g/dL 12.0-15.0 [facility] Work Phone: Blood platelet mean volumeon 11-05-2021 Platelet mean volume (Bld) [Entitic vol] 10.2 fL 6.2-12.0 [facility] Work Phone: Determination of erythrocyte mean corpuscular volume (MCV)on 11-05-2021 MCV (RBC) [Entitic vol] 89.9 fL 81-99 [facility] Work Phone: Hematocrit Auto (Bld) [Volum e fraction]on 11-05-2021 Hematocrit (Bld) [Volume fraction] 37.4 % 37-47 [facility] Work Phone: Laboratory - Chemistry and C hemistry - challengeon 11-05-2021 CO2 [Moles/Vol] 32.0 mmol/L 21.0-32.0 [facility] Work Phone: Urea nitrogen/Creatinine [Mass ratio] 7.3 mg/mg 10-20 [facility] Work Phone: Laboratory - Hematology and Cell countson 11-05-2021 Erythrocyte distribution width (RBC) [Entitic vol] 42.3 fL 35.1-43.9 [facility] Work Phone: Erythrocyte distribution width (RBC) [Ratio] 12.8 % 11.6-14.6 [facility] Work Phone: MCH (RBC) [Entitic mass] 29.6 pg 27.0-32.0 [facility] Work Phone: MCHC Auto (RBC) [Mass/Vol]on 11-05-2021 MCHC (RBC) [Mass/Vol] 32.9 g/dL 32-36 [facility] Work Phone: No Panel Informationon 11-05 Estimated GFR (MDRD) Amer 87 mL/min >60 [facility] Work Phone: Comment on above: GFR Calc Estimated GFR (MDRD) Non-Af Amer 72 mL/min >60 [facility] Work Phone: Comment on above: Non- GFR Calc Platelets bldon 11-05-2021 Platelets (Bld) [#/Vol] 294 10*3/uL 150-450 [facility] Work Phone: Serum or plasma calcium carlie urement (mass/volume)on 11-05-2021 Calcium [Mass/Vol] 8.6 mg/dL 8.5-10.1 [facility] Work Phone: Serum or plasma creatinine m easurement (mass/volume)on 11-05-2021 Creatinine [Mass/Vol] 0.83 mg/dL 0.55-1.02 [facility] Work Phone: Comment on above: The validity of the calculated GFR & GFRAA in patients over 70 years has not been determined. Clinical correlation is essential. Serum or plasma urea nitroge n measurement (mass/volume)on 11-05-2021 Urea nitrogen [Mass/Vol] 6 mg/dL 7-18 [facility] Work Phone: Thin prep Papanicolaou smear with manual screeningon 11-05-2021 Thin prep Papanicolaou smear with manual screening 3 5-15 [facility] Work Phone: Basophil percentageon 2021 Bilirubin [Mass/Vol] 0.20 mg/dL 0.20-1.00 [facility] Work Phone: Comment on above: For patients on eltr ombopag therapy, use of Dimension [place] TBIL is not recommended. Protein [Mass/Vol] 6.8 g/dL 6.4-8.2 [facility] Work Phone: WBC (Bld) [#/Vol] 5.9 10*3/uL 4.4-11.0 [facility] Work Phone: Blood erythrocytes count (nu mber/volume)on 09-24-2021 RBC (Bld) [#/Vol] 3.96 10*6/uL 4.2-5.4 [facility] Work Phone: Blood hemoglobin measurement (mass/volume)on 09-24-2021 Hemoglobin (Bld) [Mass/Vol] 11.6 g/dL 12.0-15.0 [facility] Work Phone: Blood platelet mean volumeon 09-24-2021 Platelet mean volume (Bld) [Entitic vol] 10.2 fL 6.2-12.0 [facility] Work Phone: Determination of erythrocyte mean corpuscular volume (MCV)on 09-24-2021 MCV (RBC) [Entitic vol] 89.9 fL 81-99 [facility] Work Phone: Direct bilirubinon 2 Bilirubin.direct [Mass/Vol] 0.10 mg/dL 0.00-0.30 [facility] Work Phone: Hematocrit Auto (Bld) [Volum e fraction]on 09-24-2021 Hematocrit (Bld) [Volume fraction] 35.6 % 37-47 [facility] Work Phone: Laboratory - Chemistry and C hemistry - challengeon 09-24-2021 ALP [Catalytic activity/Vol] 132 U/L 45-117 [facility] Work Phone: ALT [Catalytic activity/Vol] 15 U/L 13-56 [facility] Work Phone: Globulin (S) [Mass/Vol] 3.9 g/dL 2.2-4.2 [facility] Work Phone: Laboratory - Hematology and Cell countson 09-24-2021 Erythrocyte distribution width (RBC) [Entitic vol] 48.8 fL 35.1-43.9 [facility] Work Phone: Erythrocyte distribution width (RBC) [Ratio] 14.6 % 11.6-14.6 [facility] Work Phone: MCH (RBC) [Entitic mass] 29.3 pg 27.0-32.0 [facility] Work Phone: MCHC Auto (RBC) [Mass/Vol]on 09-24-2021 MCHC (RBC) [Mass/Vol] 32.6 g/dL 32-36 [facility] Work Phone: No Panel Informationon 09-24 Carbamazepine (Tegretol) Level 9.7 ug/mL 4.0-12.0 [facility] Work Phone: Platelets bldon 09-24-2021 Platelets (Bld) [#/Vol] 268 10*3/uL 150-450 [facility] Work Phone: Serum or plasma albumin carlie urement (mass/volume)on 09-24-2021 Albumin [Mass/Vol] 2.9 g/dL 3.2-5.0 [facility] Work Phone: Thin prep Papanicolaou smear with manual screeningon 09-24-2021 Thin prep Papanicolaou smear with manual screening 20 U/L 15-37 [facility] Work Phone: XR Shoulder Left 2 VWOrdered By: Opal Espinoza on 12-07-2020 Patient Name: ANDRE BLANCA Diagnostic Radiology ACCESSION EXAM DATE/TIME PROCEDURE ORDERING PROVIDER [id number] 12/07/2020 09:55 EDT CR Shoulder 2+ Views OPAL ESPINOZA Left CPT code 59580 Reason For Exam (CR Shoulder 2+ Views [...] Time: 12/07/2020 10:16 [facility] Work Phone: [place], [facility] Incoming [facility] - 12/07/2020 10:16 AM EDT Patient Name: ANDRE BLANCA Diagnostic Radiology ACCESSION EXAM DATE/TIME PROCEDURE ORDERING PROVIDER [id number] 12/07/2020 09:55 EDT CR Shoulder 2+ Views OPAL ESPINOZA Left CPT code 26668 Reason For Exam (CR Shoulder 2+ Views [...] ANTHONY Transcribed Date and Time: 12/07/2020 10:16 [facility] Work Phone: Complete PFT Study Pre and P ost Bronchodilatoron 11-17-2020 Name: ANDRE BLANCA PatientID: [id number] Gender: Female Birthdate: 1950 Study Date: 11/17/2020 11:01:34 A Age: 70 Race: White or Height: 67.0 in, 170.2 cm Weight: 214.0 lbs, 97.3 kg Smoke Status: Quit Pack Years: 62.Tbco Prod: Cigarettes Ordering Physician: [id number] Interpreting Physician: [id number] Roustabout Hand: DIRK Testing Location: [facility] [place], [facility] Diagnosis: COPD Spirometry Units Pred PreDrug Pre%Pred Post Post%Pred %Change FVC L,btps 3.34 1.97 59. 1.82 55. -7. FEV1 L,btps 2.53 1.40 55. 1.30 52. -7. FEV1/FVC (%) % 76. 71. 94. 72. 94. 1. UDM28-56% L/s 2.03 0.89 44. 0.85 42. -5. [...] /MIP cmH2O -77.83 PEmax /MEP cmH2O 97.10 TUBE DRAWER NOTES Good Patient effort. Consistent results. Best [...] was instructed and dispensed. Tests to perform: [id number] - FULL PFT STUDY WITH BRONCHODILATOR PHYSICIAN [...] trapping. 5. Diffusion capacity is moderately reduced. [facility] Work Phone: [place], [facility] Incoming Cardiology Results From [facility] - 11/17/2020 12:08 PM EDT Name: ANDRE BLANCA PatientID: [id number] Gender: Female Birthdate: 1950 Study Date: 11/17/2020 11:01:34 A Age: 70 Race: White or Height: 67.0 in, 170.2 cm Weight: 214.0 lbs, 97.3 kg Smoke Status: Quit Pack Years: 62.Tbco Prod: Cigarettes Ordering Physician: [id number] Interpreting Physician: [id number] Roustabout Hand: [facility]IRK Testing Location: [facility], [place], [facility] Diagnosis: COPD Spirometry Units Pred PreDrug Pre%Pred Post Post%Pred %Change FVC L,btps 3.34 1.97 59. 1.82 55. -7. FEV1 L,btps 2.53 1.40 55. 1.30 52. -7. FEV1/FVC (%) % 76. 71. 94. 72. 94. 1. DKL85-62% L/s 2.03 0.89 44. 0.85 42. -5. [...] /MIP cmH2O -77.83 PEmax /MEP cmH2O 97.10 TUBE DRAWER NOTES Good Patient effort. Consistent results. Best [...] was instructed and dispensed. Tests to perform: [id number] - FULL PFT STUDY WITH BRONCHODILATOR PHYSICIAN [...] trapping. 5. Diffusion capacity is moderately reduced. [employer] Work Phone: DISCH.SUMon 08-21-[address] Patient Name: ANDRE BLANCA [address] Date of : [address] [place] [address] Unit Number: [id number] Discharge Summary Patient Status: DIS IN Attending Doctor: Estevan Bauer DO Service Date: 08/21/20 1813 Discharge Summary Admit Date Admission Date Time: [...] Result Date Time Pulse Ox 94 08/21 945 O2 Delivery NASAL CANNULA 08/21 945 B/P 117/62 08/21 699 Pulse 79 08/21 699 Resp 16 08/21 699 O2 Flow Rate 3 08/21 29 Temp 97.7 08/21 29 B/P Mean 79 08/18 0607 Pertinent Physical [...] an ... For Providers: Tori Walters [address] [place] [address] Pulmonary In Four-Six ... For Providers: Yamileth Corbin MAIL HANDLER [address] [place] [address] Condition: Improved Disposition Senior Care Facility Phys Discharge Time Incur(Min) 31 CC: Tori Walters Disclaimer This dictation was created using voice recognition software. Phonetic and/or minor grammatical errors may exist. eSign Date and Time Estevan Bauer DO Verified/Reviewed by 09/02/[address] [facility] GLUCOSE METERon 08-21-2020 Glucose [Mass/Vol] 134 mg/dL High 85-[address] [facility] Glucose [Mass/Vol] 137 mg/dL High 85-[address] [facility] OTPNon 08-21-2020 OT Progress Note Normal [facility] OTPN Occupational Therapy Inpatient Treatment Note Medical Diagnosis: Acute hypoxemic respiratory failure, Syncope, pneumonia, hypothyroidism OCCUPATIONAL PROFILE AND HISTORY Demographics: Age: 70Y Gender: Female Primary Language: [place] Preferred Language: [place] Referring Service/Team: Medicine Rehabilitation Precautions/Restrictio ns: 4L [...] bed mobility including supine to sit, rolling, [facility] PATIENT NAME: ANDRE BLANCA [facility] Dr. Andrea MEDICAL REC #: [id number] [place] [address] ADMIT DATE: 07/27/20 SERVICE DATE: 08/21/20 Occupational Therapy Progress Note ATTENDING GIRISHY: Marta Horvath. requiring supervision. CUES FOR SAFETY [...] treatment goal(s): 5x a wk until d/c [facility] PATIENT NAME: ANDRE BLANCA [facility] Dr[address] Andrea MEDICAL REC #: [id number] [place] [address] ADMIT DATE: 07/27/20 SERVICE DATE: 08/21/20 Occupational [...] contact the Acute Therapy Department at extension [phone] Communication to Nursing: No updates at this time. Location of Patient at End of Therapy Session: In chair, chair alarm in place, call light within reach Services: Total Billed: 38 minutes (Timed: 38, Untimed: 0) 23.00 Timed: [83162] ADL-HOME MANAGEMENT EA 15 MIN 15.00 Timed: [39707] THER ACTIVITIES / 15 MIN 0.00 Untimed: [] OT Treatment General ORDER Signed by: SIMONA LLAMAS/Asuncion 08/21/2020 08:35:38 - CoSigned By: ANNIE MEZA/Asuncion 08/21/2020 12:19:11 PM [facility] PAT[facility] MEDICAL REC #: [id number] [place] [address] ADMIT DATE: 07/27/20 SERVICE DATE: 08/21/20 Occupational Therapy Progress Note ATTENDING PHY: Marta Horvath DO Normal [facility] PROG.PSYCHon 08-21-2020 PROG.PSYCH [facility] Patient Name: ANDRE BLANCA [address] Date of : [address] [place], [place] [address] Unit Number: [id number] Progress Note-Psych Patient Status: DIS IN Attending [...] 08/18 0900 AC 08/20 (PLAVIX TAB) PO 0913 Enoxaparin Sodium 40 MG QDAY 07/28 0900 [...] IV 2126 Pravastatin Sodium 40 MG QHS 08/17 2199 AC 08/20 (PRAVACHOL TAB) PO 2127 Pregabalin 150 MG BID 08/17 2099 AC 08/20 (LYRICA CAP) PO 2128 Quetiapine Fumarate 100 MG QHS 08/08 2200 AC 08/20 (SEROQUEL TAB) TUBE 2127 Risperidone 3 MG BID 08/17 2099 AC 08/20 (RISPERDAL TAB) PO 2127 Sodium Chloride See Dose Q24H 08/06 [...] Milind Gates MD Verified/Reviewed by 08/24/20 0743 [facility] Progress Note-Psych [facility] PTPNon 08-21-2020 PT Progress Note [facility] PTPN Physical Therapy Inpatient Treatment Note Medical Diagnosis: 1. Acute hypoxemia respiratory failure 2. Syncope 3. Hypothyroidism multiple rib fxs Demographics: Age: 70Y Gender: Female Primary Language: [place] Preferred Language: [place] Rehabilitation Precautions/Restrictio ns: 4L via NC, puree [...] = 39.45 and G-Code Modifier = CK [facility] PATIENT NAME: ANDRE BLANCA [facility] Dr[address] Andrea MEDICAL REC #: [id number] [place] [address] ADMIT DATE: 07/27/20 SERVICE DATE: 08/21/20 Physical Therapy Progress Note ATTENDING GIRISHY: Marta Horvath DO Vital Signs: SpO2 94% [...] contact the Acute Therapy Department at extension [phone] Location of Patient at End of Therapy Session: In chair, chair alarm in place, call light within reach Services: Total Billed: 24 minutes (Timed: 24, Untimed: 0) 24.00 Timed: [15276] GAIT TRAIN EA 15 MIN 0.00 Untimed: [] PT Treatment- General ORDER Signed by: RENALDO COLLINSMAN, CURATOR [employer] 08/21/2020 13:44:52 [facility] PATIENT NAME: ANDRE BLANCA [facility] Dr[address] Andrea MEDICAL REC #: [id number] [place] [address] ADMIT DATE: 07/27/20 SERVICE DATE: 08/21/20 Physical Therapy Progress Note ATTENDING PHY: Marta Horvath DO - CoSigned By: Alivia Patel, PT 08/21/2020 3:20:20 PM [facility] PATIENT NAME: ANDRE BLANCA [facility] Dr[address] Andrea MEDICAL REC #: [id number] [place] [address] ADMIT DATE: 07/27/20 SERVICE DATE: 08/21/20 Physical Therapy Progress Note ATTENDING PHY: Marta Horvath DO Normal [facility] [place] GLUCOSE METERon 08-20-2020 Glucose [Mass/Vol] 119 mg/dL Normal 85-125 [facility] [place] Glucose [Mass/Vol] 103 mg/dL Normal 85-125 [facility] [place] Glucose [Mass/Vol] 154 mg/dL High 85-[facility] Gl[facility] [Mass/Vol] 150 mg/dL High 85-125 [facility] [place] OTPNon 08-20-2020 OT Progress Note Normal [facility] OTPN Occupational Therapy Inpatient Treatment Note Medical Diagnosis: Acute hypoxemic respiratory failure, Syncope, pneumonia, hypothyroidism OCCUPATIONAL PROFILE AND HISTORY Demographics: Age: 70Y Gender: Female Primary Language: [place] Preferred Language: [place] Referring Service/Team: Medicine Rehabilitation Precautions/Restrictio ns: 4L [...] and G-Code Modifier = CK Functional Mobility: [facility] PATIENT NAME: ANDRE BLANCA [facility] Dr[address] Andrea MEDICAL REC #: [id number] [place] [address] ADMIT DATE: 07/27/20 SERVICE DATE: 08/20/20 Occupational [...] treatment goal(s): 5x a wk until d/c [facility] PAT[facility] MEDICAL REC #: [id number] [place] [address] ADMIT DATE: 07/27/20 SERVICE DATE: 08/20/20 Occupational [...] contact the Acute Therapy Department at extension [phone] Communication to Nursing: No updates at this time. Location of Patient at End of Therapy Session: In chair, chair alarm in place, call light within reach Services: Total Billed: 39 minutes (Timed: 39, Untimed: 0) 24.00 Timed: [28631] ADL-HOME MANAGEMENT EA 15 MIN 15.00 Timed: [60366] THER ACTIVITIES / 15 MIN 0.00 Untimed: [] OT Treatment General ORDER Signed by: ROSEANNA LLAMAS 08/20/2020 11:31:01 - CoSigned By: KASEY MEZA 08/20/2020 12:57:10 PM [facility] PATIENT NAME: ANDRE BLANCA [facility] Dr[address] Andrea MEDICAL REC #: [id number] [place] [address] ADMIT DATE: 07/27/20 SERVICE DATE: 08/20/20 Occupational Therapy Progress Note ATTENDING PHY: Marta Horvath DO Normal [facility] PBNP TESTon 08-20-2020 Natriuretic peptide B (Bld) [Mass/Vol] 134 pg/mL Normal 0-[address] [facility] Comment on above: Order Comment: Maciel joe: Ramiro Performed By: #### L [id number] #### [facility] [address] [place] [address] PROG IMSon 08-20-2020 PROG [facility] Patient Name: ANDRE BLANCA [address] [facility] Date of : [address] [place], [place] [address] Unit Number: [id number] Progress Note-Hospitalist Patient Status: ADM IN Attending [...] 18 08/20 699 B/P Mean 79 08/18 0607 Physical Exam [...] Normal affect. Diagnostic Data: [facility] 08/20/20 1157: SARS-CoV-2 (PCR) Pending 08/20/20 1153: Whole Bld Glucose 154 H 08/20/20 0810: Whole Bld Glucose 150 H 08/19/20 2101: Whole Bld Glucose 149 H 08/19/20 1707: Whole Bld Glucose 121 Assessment and Plan Conclusion 1. Acute respiratory failure with hypoxia Secondary to COPD exacerbation and aspiration pneumonia. 2. Bipolar 1 disorder, mixed, moderate On MonAug 19, 2020 ESTEVAN BAUER wrote Continue Tegretol 200 mg 3 times daily, Prozac 20 mg daily, Seroquel 100 mg at night, Risperdal 3 mg twice daily, and IV Haldol as needed. Psychiatry is consulted. 3. TASHI (acute kidney injury) On MonAug 19, 2020 ESTEVAN BAUER wrote Resolved. Creatinine is back at baseline. 4. Syncope 5. Obesity On MonAug 19, 2020 ESTEVAN BAUER wrote BMI 41.9 6. COPD exacerbation On MonAug 19, 2020 ESTEVAN BAUER wrote Continue breathing treatments in the hospital. Will need to be discharged with LABA/ICS. She will need PFTs performed outpatient. Follow-up with pulmonology in 4 to 6 weeks. 7. Acute delirium On MonAug 19, 2020 ESTEVAN BAUER wrote Continue reorienting patient. Minimize usage of Haldol. 8. Hypothyroidism On MonAug 19, 2020 ESTEVAN BAUER wrote Continue levothyroxine. 9. HLD (hyperlipidemia) On MonAug 19, 2020 ESTEVAN BAUER wrote Continue statin. 10. History of ischemic stroke On Mon Aug 19, 2020 ESTEVAN BAUER wrote Continue statin. Patient should be on aspirin for secondary stroke prevention. We will review medications. Statement of Attestation Continue weaning oxygen as tolerated. Patient is currently on 3 L nasal cannula. Awaiting approval [facility]. I confirm that I have evaluated the patient, reviewed the history and physical, medications, diagnostic results, physical exam, assessment and plan of care of the patient. Disclaimer This dictation was created using voice recognition software. Phonetic and/or minor grammatical errors may exist. eSign Date and Time Estevan Bauer DO Verified/Reviewed by 08/20/20 1427 [facility] Progress Note-Hospitalist [facility] ANDRE [facility]AN[facility] [address] Date of : [address] [place] [address] Unit Number: [id number] Progress Note-Pulmonology Patient Status: ADM IN Attending [...] Temp 97.6 08/20 699 Pulse 76 08/20 0600 Resp 18 08/20 699 B/P Mean 79 05 0607 IandO 24 Hour Summary 08/20 0000 Intake [...] 500 MG Q6HPRN PRN 08/04 1930 AC 08/20 (TYLENOL ORAL LIQ) TUBE 0531 [...] 1236 Clopidogrel Bisulfate 75 MG QDAY 08/18 09 AC 08/20 (PLAVIX TAB) PO 09 Enoxaparin [...] 08/17 2100 AC 08/20 (LYRICA CAP) PO 0917 Quetiapine Fumarate 100 MG QHS 08/08 2200 [...] 08/04 for worsening hypoxemia and transfer to [facility] on 08/18. ASSESSMENT: - Acute Hypoxemic [...] Loera with patient's son on 08/11. - [place] [facility] will sign off. Please reconsult if needed. Disclaimer This dictation was created using voice recognition software. Phonetic and/or minor grammatical errors may exist. eSign Date and Time Marge Beckman DO Verified/Reviewed by 08/20/20 1303 [facility] Progress Note-Pulmonology [facility] PTPNon 08-20-2020 PT Progress Note [facility] PTPN Physical Therapy Inpatient Treatment Note Medical Diagnosis: 1. Acute hypoxemia respiratory failure 2. Syncope 3. Hypothyroidism multiple rib fxs Demographics: Age: 70Y Gender: Female Primary Language: [place] Preferred Language: [place] Rehabilitation Precautions/Restrictio ns: 4L via NC, puree [...] Bed to Chair: A little help needed [facility] PATIENT NAME: ANDRE BLANCA [facility] Dr. Andrea MEDICAL REC #: [id number] [place] [address] ADMIT DATE: 07/27/20 SERVICE DATE: 08/20/20 Physical [...] contact the Acute Therapy Department at extension [phone] [facility] PATIENT NAME: ANDRE BLANCA [facility] Dr. Andrea MEDICAL REC #: [id number] [place] [address] ADMIT DATE: 07/27/20 SERVICE DATE: 08/20/20 Physical Therapy Progress Note ATTENDING DAMIAN: Marta Horvath DO Location of Patient at End of Therapy Session: In chair, chair alarm in place, call light within reach Services: Total Billed: 24 minutes (Timed: 24, Untimed: 0) 24.00 Timed: [40577] THER ACTIVITIES / 15 MIN 0.00 Untimed: [] PT Treatment- General ORDER Signed by: RENALDO BENAVIDES, CURATOR [employer] 08/20/2020 13:52:13 - CoSigned By: SINDHU MONTANEZ, PT 08/20/2020 4:07:52 PM [facility] PATIENT NAME: ANDRE BLANCA [address] [place] [address] Dr. Andrea MEDICAL REC #: [id number] [place] [address] ADMIT DATE: 07/27/20 SERVICE DATE: 08/20/20 Physical Therapy Progress Note ATTENDING PHY: Marta Horvath DO Normal [facility] [id number] 08-20-2020 SARS-CoV-2 Negative Normal Negative [facility] Comment on above: Order Comment: Maciel joe: Ramiro What is the source? URINE Result Comment: Nega tive results do not preclude SARS-CoV-2 infection and should not be used as the sole basis for patient management decisions. Negative results must be combined with clinical observations, patient history, and epidemiological information. [place] [address]/20/20 BY KEYON HENNESSY Performed By: #### M 150.32544, M150.82644 #### [facility] [address] [place] [address] ABGPon 08-19-2020 ABG BE 10.6 MML/L High -2.0-2.[address] [facility] Comment on above: Order Comment: Maciel Rubio Performed By: #### L 200.86328 #### [facility] [address] [place] [address] 924[address] ABG COHBA 0.3 % Normal 0-[address] [facility] Comment on above: Order Comment: Campu s: M Performed By: #### L 200.23159 #### [facility] [address] [place] [address] ABG HCO3 37.1 MMOL/L High 22-[address] [facility] Comment on above: Order Comment: Campu s: M Performed By: #### L 200.27509 #### [facility] [address] [place] [address] ABG MET 0.3 % Low 0.4-1.[address] [facility] Comment on above: Order Comment: Campu s: M Performed By: #### L 200.91432 #### [facility] [address] [place] [address] ABG O2 CAPACITY 12.4 mL/dL Normal [facility] Comment on above: Order Comment: Campu s: M Performed By: #### L 200.11112 #### [facility] [address] [place] [address] ABG O2 CONTENT 12.0 mL/dL Low 15.7-21.[address] [facility] Comment on above: Order Comment: Campu s: M Performed By: #### L 200.13229 #### [facility] [address] [place] [address] ABG O2HB SAT 93.8 % Normal 90-[address] [facility] Comment on above: Order Comment: Campu s: M Performed By: #### L 200.32632 #### [facility] [address] [place] [address] ABG PCO2 61.9 MMHG Critically high 35-[address] [facility] Comment on above: Order Comment: Campu s: M Result Comment: CRIT ICAL VALUE(S) VERIFIED AND HAND DELIVERED TO AND READ BACK BY GEE DALTON AT 0047 08/19/20 BY LORENA CRABTREE Performed By: #### L 200.64863 #### [facility] [address] [place] [address] ABG PH 7.40 Normal 7.35-7.[address] [facility] Comment on above: Order Comment: Campu s: M Performed By: #### L 200.35767 #### [facility] [address] [place] [address] ABG PO2 78 MMHG Low 80-[address] [facility] Comment on above: Order Comment: Campu s: M Performed By: #### L 200.11320 #### [facility] [address] [place] [address] DOUG TEST Positive Normal [facility] Comment on above: Order Comment: Campu s: M Performed By: #### L 200.62194 #### [facility] [address] [place] [address]267 aPTT Coag (Bld) [Time] 37.0 C Normal [facility] Comment on above: Order Comment: Campu s: M Performed By: #### L 200.11429 #### [facility] [address] [place] [address] 85084 EQUIPMENT NASAL CANNULA Normal [facility] Comment on above: Order Comment: Campu s: M Performed By: #### L 200.64370 #### [facility] [address] [place] [address]71 Hemoglobin (Bld) [Mass/Vol] 9.0 g/dL Low 10-[address] [facility] Comment on above: Order Comment: Campu s: M Performed By: #### L 200.32670 #### [facility] [address] [place] [address] Hemoglobin (Bld) [Mass/Vol] 5.6 % High 0-[address] [facility] Comment on above: Order Comment: Campu s: M Performed By: #### L 200.46975 #### [facility] [address] [place] [address] LITERFLOW 5.00 L/M Normal [facility] Comment on above: Order Comment: Campu s: M Performed By: #### L .68143 #### [facility] [address] [place] [address] Oxygen saturation in Blood 95 % Normal [facility] Comment on above: Order Comment: Campu s: M Performed By: #### L .43747 #### [facility] [address] [place] [address] SAMPLE SITE L RADIAL Normal [facility] Comment on above: Order Comment: Campu s: M Performed By: #### L .15675 #### [facility] [address] [place] [address] SAMPLE TYPE ARTERIAL Normal [facility] Comment on above: Order Comment: Campu s: M Performed By: #### L .75571 #### [facility] [address] [place] [address] BMPon 08-19-2020 Anion gap [Moles/Vol] 3 mmol/L Low 5-16 [facility] Comment on above: Order Comment: Campu s: M Performed By: #### L 500.89901, L500.77785, L500.21291, L500.71906 ####[facility] [id number] [place], [place] [address]Jk# [phone] Calcium [Mass/Vol] 8.5 mg/dL Normal 8.5-10.[address] [facility] Comment on above: Order Comment: Campu s: M Result Comment: NOTE NEW NORMAL RANGE DUE TO REAGENT CHANGE Performed By: #### L 500.48987, L500.04217, L500.63735, L500.03514 ####[facility] [id number] [place], [place] [address]Vr# [phone] Chloride [Moles/Vol] 100 mmol/L Normal 98-107 [facility] Comment on above: Order Comment: Abundiou s: M Performed By: #### L 500.87715, L500.03936, L500.46053, L500.72162 ####[facility] [id number] [place], [place] [address]Fb# [phone] CO2 [Moles/Vol] 37.0 mmol/L High 21-[address] [facility] Comment on above: Order Comment: Campu s: M Performed By: #### L 500.28698, L500.25594, L500.46664, L500.17049 ####[facility] [id number] [place], [place] [address]Cz# [phone] Creatinine [Mass/Vol] 0.66 mg/dL Normal 0.510-0.950 [facility] Comment on above: Order Comment: Abundiou s: M Result Comment: Geraldine ents receiving either N-Acetylcysteine (NAC) or Metamizole prior to venipuncture, may have falsely depressed results. Performed By: #### L 500.76158, L500.23298, L500.07913, L500.19332 ####[facility] [id number] [place], [place] [address]Gl# [phone] Glucose [Mass/Vol] 148 mg/dL High 70-[address] [facility] Comment on above: Order Comment: Abundiou s: M Result Comment: 70-1 00- Normal Fasting; 100-125 Impaired Fasting; greater than 126 on more than one result- Diabetes. ADA guidelines. Results may be falsely elevated after the administration of Sulfapyridine. Results may be falsely depressed after the administration of Sulfasalazine. Performed By: #### L 500.33080, L500.23805, L500.25076, L500.23286 ####[facility] JNZJYOPMMS2428 [place], [place] [address]Fi# [phone] Potassium [Moles/Vol] 4.0 mmol/L Normal 3.5-5.1 [facility] Comment on above: Order Comment: Campu s: M Result Comment: Slig ht Hemolysis, Result may be affected. Performed By: #### L 500.33190, L500.25110, L500.15412, L500.90060 ####[facility] [id number] [place], [place] [address]Ho# [phone] Sodium [Moles/Vol] 140 mmol/L Normal 136-145 [facility] Comment on above: Order Comment: Campu s: M Performed By: #### L 500.63890, L500.51519, L500.03631, L500.01157 ####[facility] [id number] [place], [place] [address]Jw# [phone] Urea nitrogen [Mass/Vol] 8 mg/dL Normal 7-26 [facility] Comment on above: Order Comment: Campu s: M Performed By: #### L 500.23184, L500.56965, L500.66287, L500.77507 ####[facility] [id number] [place], [place] [address]Ms# [phone] Urea nitrogen/Creatinine [Mass ratio] 12 mg/mg Low 15-24 [facility] Comment on above: Order Comment: Campu s: M Performed By: #### L 500.41196, L500.89336, L500.38303, L500.14586 ####[facility] FDYCXLIJQK8754 [place], [place] [address]Xv# [phone] CBC W/DIFFon 08-19-2020 BASO ABS 0.10 K/CU MM Normal 0-0.2 [facility] Comment on above: Order Comment: Campu s: M Performed By: #### L 200.38466 ####[facility] [id number] [place] [address]Rd# [phone] Basophils/100 WBC (Bld) 1.2 % Normal 0-2 M [facility] [place] Comment on above: Order Comment: Campu s: M Performed By: #### L 200.23702 ####[facility] [id number] [place] [address], [place] [address]Zi# [phone] EOS ABS 0.30 K/CU MM Normal 0-0.5 [facility] [place] Comment on above: Order Comment: Campu s: M Performed By: #### L 200.60691 ####[facility] [id number] [place] [address]Gg# [phone] Eosinophils/100 WBC (Bld) 4.4 % Normal 0-5 [facility] [place] Comment on above: Order Comment: Campu s: M Performed By: #### L 200.26890 ####[place] [address]Ph# [phone] Erythrocyte distribution width (RBC) [Ratio] 15.9 % High 11-14.5 [facility] [place] Comment on above: Order Comment: Campu s: M Performed By: #### L 200.78885 ####[place] [address]Ph# [phone] Hematocrit (Bld) [Volume fraction] 26.9 % Low 35.0-47.0 [facility] [place] Comment on above: Order Comment: Campu s: M Performed By: #### L 200.76688 ####[facility] [id number] [place], [place] [address]Ph# [phone] Hemoglobin (Bld) [Mass/Vol] 8.0 g/dL Low 11.5-15.5 [facility] [place] Comment on above: Order Comment: Campu s: M Performed By: #### L 200.69541 ####[facility] [id number] [place], [place] [address]Ph# [phone] IMMATR GRAN ABS 0.10 K/CU MM Normal Less than 2 [facility] [place] Comment on above: Order Comment: Campu s: M Performed By: #### L 200.94888 ####[facility] [id number] [place], [place] [address]Ph# [phone] IMMATURE GRAN % 0.8 % Normal Less than 2 [facility] [place] Comment on above: Order Comment: Campu s: M Performed By: #### L 200.73280 ####[facility] BZYMRRMKAT3071 [place], [place] [address]Vv# [phone] Lymphocytes (Bld) [#/Vol] 1.50 K/CU MM Normal 0.9-4.[address] [facility] Comment on above: Order Comment: Campu s: M Performed By: #### L 200.58884 ####[address] [address]Jq# [phone] Lymphocytes/100 WBC (Bld) 23.1 % Normal 20-[address] [facility] Comment on above: Order Comment: Campu s: M Performed By: #### L 200.65067 ####[address] [address]Ie# [phone] MCHC (RBC) [Mass/Vol] 29.7 g/dL Low 32.0-36.0 [facility] Comment on above: Order Comment: Campu s: M Performed By: #### L 200.78630 ####[address] [address]Fg# [phone] MCV (RBC) [Entitic vol] 98.2 fL Normal 80.0-99.0 M [facility] Comment on above: Order Comment: Campu s: M Performed By: #### L 200.87175 ####[facility] [id number] [place] [address]Ar# [phone] MONO ABS 0.50 K/CU MM Normal 0.1-1.[address] [facility] Comment on above: Order Comment: Campu s: M Performed By: #### L 200.47983 ####[facility] [id number] [place] [address]Xe# [phone] Monocytes/100 WBC (Bld) 7.8 % Normal 2-10 M [facility] Comment on above: Order Comment: Campu s: M Performed By: #### L 200.34280 ####[facility] [id number] [place], [place] [address]Or# [phone] NEUTROPHIL ABS 4.10 K/CU MM Normal 2.0-8.3 [facility] Comment on above: Order Comment: Campu s: M Performed By: #### L 200.16115 ####[facility] [id number] [place], [place] [address]Oz# [phone] Neutrophils/100 WBC (Bld) 62.7 % Normal 45-75 [facility] Comment on above: Order Comment: Campu s: M Performed By: #### L 200.02513 ####[place] [address]Ph# [phone] Nucleated RBC/100 WBC (Bld) [Ratio] 0.0 % Normal Less than [address] [facility] Comment on above: Order Comment: Campu s: M Performed By: #### L 200.41963 ####[facility] LIBE[address] [place] [address]Xg# [phone] Platelet mean volume (Bld) [Entitic vol] 10.2 fL Normal 9.4-12.[address] [facility] Comment on above: Order Comment: Campu s: M Performed By: #### L 200.14349 ####[address] [address]Do# [phone] Platelets (Bld) [#/Vol] 425 K/CU MM Normal 150-450 [facility] Comment on above: Order Comment: Campu s: M Performed By: #### L 200.65125 ####[facility] [id number] [place] [address]Ib# [phone] RBC (Bld) [#/Vol] 2.74 M/CU MM Low 3.90-5.[address] [facility] Comment on above: Order Comment: Campu s: M Performed By: #### L 200.00659 ####[facility] [id number] [place], [place] [address]Ph# [phone] WBC (Bld) [#/Vol] 6.6 K/CUMM Normal 4.5-11.0 [facility] Comment on above: Order Comment: Campu s: M Performed By: #### L 200.80033 ####[facility] [id number] [place], [place] [address]Of# [phone] GFR ESTon 08-19-2020 IF AMER Greater than 60 [facility] Comment [facility]: Order Comment: Campu s: M Performed By: #### L 500.59950, L500.55973, L500.91584, L500.16157 ####[facility] [id number] [place], [place] [address]Oh# [phone] IF non-AFR AMER Greater than 60 Normal [facility] Comment on above: Order Comment: Campu s: M Performed By: #### L 500.52219, L500.91021, L500.69453, L500.35003 ####[facility] ZSGBXRVHPC4185 [place], [place] [address]Qq# [phone] GLUCOSE METERon 08-19-2020 Glucose [Mass/Vol] 149 mg/dL High 85-125 [facility] [place] Glucose [Mass/Vol] 121 mg/dL Normal 85-125 [facility] [place] Glucose [Mass/Vol] 118 mg/dL Normal 85-125 [facility] [place] Glucose [Mass/Vol] 155 mg/dL High 85-125 [facility] [place] Glucose [Mass/Vol] 115 mg/dL Normal 85-125 [facility] [place] Glucose [Mass/Vol] 149 mg/dL High 85-125 [facility] [place] MAGNESIUMon 08-19-2020 Magnesium [Mass/Vol] 1.9 MG/CL Normal 1.6-2.6 [facility] Comment on above: Order Comment: Campu s: M Performed By: #### L 500.70059, L500.66916, L500.96346, L500.70360 ####[facility] JDUYBOCEJA4024 [place], [place] [address]Fn# [phone] OTPNon 08-19-2020 OT Progress Note Normal [facility] [place] OTPN Occupational Therapy Inpatient Treatment Note Medical Diagnosis: Acute hypoxemic respiratory failure, Syncope, pneumonia, hypothyroidism OCCUPATIONAL PROFILE AND HISTORY Demographics: Age: 70Y Gender: Female Primary Language: [place] Preferred Language: [place] Referring Service/Team: Medicine Rehabilitation Precautions/Restrictio ns: 4L [...] and G-Code Modifier = CK Functional Mobility: [facility] PATIENT NAME: ANDRE BLANCA [facility] Dr. Andrea MEDICAL REC #: [id number] [place] [address] ADMIT DATE: 07/27/20 SERVICE DATE: 08/19/20 Occupational [...] care discharge, the following is currently recommended: [facility] PATIENT NAME: ANDRE BLANCA [facility] Dr. Andrea MEDICAL REC #: [id number] [place] [address] ADMIT DATE: 07/27/20 SERVICE DATE: 08/19/20 Occupational Therapy Progress Note ATTENDING PHY: Marta Horvath DO Inpatient Occupational Therapy, LESS THAN 60 minutes per day. Equipment Recommended: TBD Recommended Consults: None currently. Development of Plan of Care: Patient participated in plan of care development today. If there are any questions regarding this service, please contact the Acute Therapy Department at extension [phone] Communication to Nursing: No updates at this time. Location of Patient at End of Therapy Session: In chair, call light within reach telesitter Services: Total Billed: 23 minutes (Timed: 23, Untimed: 0) 23.00 Timed: [47522] ADL-HOME MANAGEMENT EA 15 MIN 0.00 Untimed: [] OT Treatment General ORDER Signed by: ROSEANNA LLAMAS 08/19/2020 11:57:19 - CoSigned By: Cayla Rios OT 08/19/2020 3:53:45 PM [facility] PATIENT NAME: ANDRE BLANCA [facility] Dr. Andrea MEDICAL REC #: [id number] [place] [address] ADMIT DATE: 07/27/20 SERVICE DATE: 08/19/20 Occupational Therapy Progress Note ATTENDING PHY: Marta Horvath DO Normal [facility] PBNPon 08-19-2020 Natriuretic peptide B (Bld) [Mass/Vol] 134 pg/mL Normal 0-900 [facility] Comment on above: Result Comment: NT-p roBNP results of less than 300 pg/mL effectively rules out acute congestive heart failure with 99% negative predictive value. Performed By: #### P BNP #### [facility] [address] [place], [place] [address] PHOSon 08-19-2020 Phosphate [Mass/Vol] 4.40 mg/dL Normal 2.5-4.9 [facility] Comment on above: Order Comment: Maciel s: M Result Comment: Elev ated m-protein (paraprotein) levels in the serum may be exhibited in patients with monoclonal gammopathies, causing falsely elevated inorganic phosphorus results. Performed By: #### L 500.94582, L500.92241, L500.96348, L500.92302 ####[facility] [id number] [place], [place] [address]Pn# [phone] PROG [facility] 08-19-2020 PROG [facility] Patient Name: ANDRE BLANCA [address] [facility] Date of : [address] [place] [address] Unit Number: [id number] Progress Note-Hospitalist Patient Status: ADM IN Attending [...] 08/19 1115 O2 Delivery NASAL CANNULA 08/19 1115 O2 Flow Rate 4 08/19 1115 Temp 98.0 08/19 1115 Pulse 78 08/19 1115 Resp 24 08/19 1115 B/P Mean 79 /05 0607 Physical Exam Physical Examination Notes General: [...] Normal affect. Diagnostic Data: Lab 24hr (CBC/BMP Luz) 08/19/20 1158: Whole Bld Glucose 118 08/19/20 0755: Whole Bld Glucose 155 H 08/19/20 0516: Lic-B-Tyrkibhipnq Pept Pending 08/19/20 0516: [Embedded Image Not [...] time. Disposition according to case management is [facility]. I confirm that I have evaluated the patient, reviewed the history and physical, medications, diagnostic results, physical exam, assessment and plan of care of the patient. Disclaimer This dictation was created using voice recognition software. Phonetic and/or minor grammatical errors may exist. eSign Date and Time Estevan Bauer DO Verified/Reviewed by 08/19/20 1409 [facility] Progress Note-Hospitalist [facility] TAMIA [facility] Patient Name: ANDRE BLANCA [address] Date of : [address] [place] [address] Unit Number: [id number] Progress Note-Hospitalist Patient Status: ADM IN Attending Doctor: Marta Horvath DO Service Date: 08/19/20833 Chief Complaint Chief Complaint Syncope Assessment and [...] eSign Date and Time Estevan Bauer DO [facility] Progress Note-Hospitalist [facility] PROG.PSYCHon 08-19-2020 PROG.PSYCH [facility] Patient Name: ANDRE BLANCA [address] Date of : [address] [place] [address] Unit Number: [id number] Progress Note-Psych Patient Status: DIS IN Attending Doctor: Marta Horvath DO Service Date: 08/19/2013 Progress Note - PSYCH Subjective: (2 ROS [...] HCl 20 MG QDAY 08/18 0900 AC 08/18 (PROZAC CAP) PO 0939 Guaifenesin [...] 4 MG Q6HPRN PRN 07/27 2100 AC 12/22 (ZOFRAN VIAL) IV 2126 Pravastatin Sodium 40 MG QHS 08/17 2199 AC 08/18 (PRAVACHOL TAB) PO 2153 Pregabalin 150 MG BID 08/17 2099 AC 08/18 (LYRICA CAP) PO 2152 Quetiapine Fumarate 100 MG QHS 08/08 2200 AC 08/18 (SEROQUEL TAB) TUBE 215 Risperidone 3 MG BID 08/17 2099 AC 08/18 (RISPERDAL TAB) PO 2154 Sodium Chloride 1,000 ML CONT 08/19 0030 [...] Milind Gates MD Verified/Reviewed by 08/24/20 0743 [facility] Progress Note-Psych Normal [facility] PROG.PULMon 08-19-2020 PROG.PULM [facility] Patient Name: ANDRE BLANCA [address] Date of : [address] [place] [address] Unit Number: [id number] Progress Note-Pulmonology Patient Status: ADM IN Attending [...] 08/19 1115 O2 Delivery NASAL CANNULA 08/19 1115 O2 Flow Rate 4 08/19 1115 Temp 98.0 08/19 1115 Pulse 78 08/19 [...] 0934 Clopidogrel Bisulfate 75 MG QDAY 08/18 0900 AC 08/19 (PLAVIX TAB) PO 0934 Enoxaparin Sodium 40 MG QDAY 07/28 0900 AC 08/19 (LOVENOX D.SYR) SC 0934 Esomeprazole 20 MG BIDAC 08/17 1908 AC 08/19 Magnesium PO 0638 (NEXIUM CAP (TXI)) Fluoxetine HCl 20 MG QDAY 08/18 0900 AC 08/19 (PROZAC CAP) PO 0934 Guaifenesin [...] IV 2126 Pravastatin Sodium 40 MG QHS 08/17 2199 AC 08/18 (PRAVACHOL TAB) PO 2153 Pregabalin 150 MG BID 08/17 2099 AC 08/18 (LYRICA CAP) PO 2152 Quetiapine Fumarate 100 MG QHS 08/08 2200 AC 08/18 (SEROQUEL TAB) TUBE 215 Risperidone 3 MG BID 08/17 2099 AC 08/19 (RISPERDAL TAB) PO 09 Sodium Chloride 1,000 ML CONT 08/19 0030 [...] 08/19 34 FiO2 % (%) 52 08/11 538 Lab Results: Lab 24hr (CBC[facility]) 08/19/20 0755: Whole Bld Glucose 155 H 08/19/20 0516: Omm-J-Lhfakfsvnrs Pept Pending 08/19/20 0516: [Embedded Image Not [...] 08/04 for worsening hypoxemia and transfer to [facility] on 08/18. ASSESSMENT: - Acute Hypoxemic [...] ATTESTATION: Patient individually seen/examined. Agree with the ELECTRICIAN TECHNICIAN's notes, assessment and plan. My evaluation and treatment plan is reflected by the addendum in the above note. Collaborating Physician: Marge Beckman DO Disclaimer This dictation was created using voice recognition software. Phonetic and/or minor grammatical errors may exist. eSign Date and Time Marge Beckman DO Verified/Reviewed by 08/19/20 1343 Yamileth Corbin CNP [facility] Progress Note-Pulmonology [facility] 08-19-2020 PT Progress Note [facility] PTPN Physical Therapy Inpatient Treatment Note Medical Diagnosis: 1. Acute hypoxemia respiratory failure 2. Syncope 3. Hypothyroidism multiple rib fx Demographics: Age: 70Y Gender: Female Primary Language: [place] Preferred Language: [place] Rehabilitation Precautions/Restrictio ns: 4L via NC, puree [...] = 39.45 and G-Code Modifier = CK [facility] PATIENT NAME: ANDRE BLANCA [facility] Dr. Andrea MEDICAL REC #: [id number] [place] [address] ADMIT DATE: 07/27/20 SERVICE DATE: 08/19/20 Physical Therapy Progress Note ATTENDING PHY: Marta Horvath DO Vital Signs: SPO2 w/ [...] contact the Acute Therapy Department at extension [phone] Location of Patient at End of Therapy Session: In chair, chair alarm in place, call light within reach Tele sitter on [facility] PAT[facility] REC #: [id number] [place] [address] ADMIT DATE: 07/27/20 SERVICE DATE: 08/19/20 Physical Therapy Progress Note ATTENDING PHY: Marta Horvath DO Services: Total Billed: 24 minutes (Timed: 24, Untimed: 0) 24.00 Timed: [47390] THER ACTIVITIES / 15 MIN 0.00 Untimed: [] PT Treatment- General ORDER Signed by: RENALDO BENAVIDES, [employer] 08/19/2020 15:25:26 - CoSigned By: Kiki Cheung, PT 08/19/2020 3:39:16 PM [facility] PATIENT NAME: ANDRE BLANCA Traci Andrea MEDICAL REC #: [id number] [place] [address] ADMIT DATE: 07/27/20 SERVICE DATE: 08/19/20 Physical Therapy Progress Note ATTENDING PHY: Marta Horvath DO Normal [facility] [place] BMPon 08-18-2020 Anion gap [Moles/Vol] 3 mmol/L Low 5-16 [facility] Comment on above: Order Comment: Campu s: M Performed By: #### L 500.25791, L500.26484, L500.72115, L500.52990 ####[facility] [id number] [place], [place] [address]Fv# [phone] Calcium [Mass/Vol] 8.7 mg/dL Normal 8.5-10.[address] [facility] Comment on above: Order Comment: Campu s: M Result Comment: NOTE NEW NORMAL RANGE DUE TO REAGENT CHANGE Performed By: #### L 500.13128, L500.67783, L500.93610, L500.41997 ####[facility] [id number] [place], [place] [address]Fu# [phone] Chloride [Moles/Vol] 98 mmol/L Normal 98-107 [facility] Comment on above: Order Comment: Campu s: M Performed By: #### L 500.91915, L500.12251, L500.71941, L500.32401 ####[facility] [id number] [place], [place] [address]Vu# [phone] CO2 [Moles/Vol] 40.0 mmol/L High 21-[address] [facility] Comment on above: Order Comment: Campu s: M Performed By: #### L 500.10771, L500.29462, L500.23787, L500.80801 ####[facility] FOEGCNUKBJ2118 [place], [place] [address]Br# [phone] Creatinine [Mass/Vol] 0.58 mg/dL Normal 0.510-0.950 [facility] Comment on above: Order Comment: Campu s: M Result Comment: Geraldine ents receiving either N-Acetylcysteine (NAC) or Metamizole prior to venipuncture, may have falsely depressed results. Performed By: #### L 500.97309, L500.48732, L500.96905, L500.27988 ####[facility] ONQPYGIOEL1963 [place], [place] [address]Ty# [phone] Glucose [Mass/Vol] 146 mg/dL High 70-[address] [facility] Comment on above: Order Comment: Campu s: M Result Comment: 70-1 00- Normal Fasting; 100-125 Impaired Fasting; greater than 126 on more than one result- Diabetes. ADA guidelines. Results may be falsely elevated after the administration of Sulfapyridine. Results may be falsely depressed after the administration of Sulfasalazine. Performed By: #### L 500.25507, L500.02612, L500.17335, L500.79878 ####[facility] [id number] [place], [place] [address]Nd# [phone] Potassium [Moles/Vol] 3.9 mmol/L Normal 3.5-5.1 [facility] Comment on above: Order Comment: Campu s: M Performed By: #### L 500.00784, L500.63314, L500.78760, L500.26996 ####[facility] NFZSARQTBQ9656 [place], [place] [address]Wx# [phone] Sodium [Moles/Vol] 139 mmol/L Normal 136-[address] [facility] Comment on above: Order Comment: Campu s: M Performed By: #### L 500.83932, L500.05876, L500.04425, L500.34790 ####[facility] KPGFQBWEQI9289 [place], [place] [address]Do# [phone] Urea nitrogen [Mass/Vol] 9 mg/dL Normal 7-[address] [facility] Comment on above: Order Comment: Campu s: M Performed By: #### L 500.57081, L500.50673, L500.75245, L500.90267 ####[facility] TIUCFIRSUJ2427 [place], [place] [address]Mp# [phone] Urea nitrogen/Creatinine [Mass ratio] 15 mg/mg Normal 15-[address] [facility] Comment on above: Order Comment: Campu s: M Performed By: #### L 500.96323, L500.14365, L500.93621, L500.87502 ####[facility] WFZZPUEYCY6548 [place], [place] [address]Ds# [phone] CBC W/DIFFon 08-18-2020 BASO ABS 0.10 K/CU MM Normal 0[facility]0.2 [facility] Comment on above: Order Comment: Campu s: M Performed By: #### L 200.57017 ####[facility] [id number] [place] [address]Gk# [phone] Basophils/100 WBC (Bld) 0.8 % Normal 0-2 [facility] Comment on above: Order Comment: Campu s: M Performed By: #### L 200.80412 ####[address] [address]Pj# [phone] EOS ABS 0.30 K/CU MM Normal 0-0.5 [facility] Comment on above: Order Comment: Campu s: M Performed By: #### L 200.58307 ####[facility] [id number] [place] [address]Wu# [phone] Eosinophils/100 WBC (Bld) 3.7 % Normal 0-5 [facility] Comment on above: Order Comment: Campu s: M Performed By: #### L 200.89291 ####[facility] [id number] [place] [address]Nn# [phone] Erythrocyte distribution width (RBC) [Ratio] 15.7 % High 11-14.5 [facility] Comment on above: Order Comment: Campu s: M Performed By: #### L 200.14479 ####[facility] [id number] [place] [address]Yo# [phone] Hematocrit (Bld) [Volume fraction] 25.6 % Low 35.0-47.[address] [facility] Comment on above: Order Comment: Campu s: M Performed By: #### L 200.81895 ####[facility] OUBPWGCXGX8291 [place], [place] [address]Fq# [phone] Hemoglobin (Bld) [Mass/Vol] 7.8 g/dL Low 11.5-15.5 [facility] [place] Comment on above: Order Comment: Campu s: M Performed By: #### L 200.91603 ####[facility] CHDRLOIJSC[address] [place] [address]Qf# [phone] IMMATR GRAN ABS 0.10 K/CU MM Normal Less than 2 [facility] [place] Comment on above: Order Comment: Campu s: M Performed By: #### L 200.08496 ####[facility] [id number] [place], [place] [address]Ph# [phone] IMMATURE GRAN % 1.0 % Normal Less than 2 [facility] [place] Comment on above: Order Comment: Campu s: M Performed By: #### L 200.85742 ####[facility] [id number] [place], [place] [address]Ph# [phone] Lymphocytes (Bld) [#/Vol] 1.30 K/CU MM Normal 0.9-4.[address] [facility] Comment on above: Order Comment: Campu s: M Performed By: #### L 200.46095 ####[address] [address]Ba# [phone] Lymphocytes/100 WBC (Bld) 16.8 % Low 20-40 [facility] Comment on above: Order Comment: Campu s: M Performed By: #### L 200.95344 ####[facility] [id number] [place] [address]Sg# [phone] MCHC (RBC) [Mass/Vol] 30.5 g/dL Low 32.0-36.0 [facility] [place] Comment on above: Order Comment: Campu s: M Performed By: #### L 200.66702 ####[facility] [id number] [place], [place] [address]Ph# [phone] MCV (RBC) [Entitic vol] 95.9 fL Normal 80.0-99.0 [facility] Comment on above: Order Comment: Campu s: M Performed By: #### L 200.02159 ####[facility] NZMSKNFUAY7975 [place], [place] [address]Jn# [phone] MONO ABS 0.60 K/CU MM Normal 0.1-1.[address] [facility] Comment on above: Order Comment: Campu s: M Performed By: #### L 200.84565 ####[facility] QFRJHSESYK[address] [place] [address]Gs# [phone] Monocytes/100 WBC (Bld) 7.5 % Normal 2-10 [facility] Comment on above: Order Comment: Campu s: M Performed By: #### L 200.85951 ####[facility] [id number] [place], [place] [address]Ph# [phone] NEUTROPHIL ABS 5.50 K/CU MM Normal 2.0-8.[address] [facility] Comment on above: Order Comment: Campu s: M Performed By: #### L 200.02159 ####[facility] HVJWQESLMO[address] [place] [address]Hy# [phone] Neutrophils/100 WBC (Bld) 70.2 % Normal 45-[address] [facility] Comment on above: Order Comment: Campu s: M Performed By: #### L 200.75491 ####[facility] UTIYXMKJLS[address] [place] [address]Ln# [phone] Nucleated RBC/100 WBC (Bld) [Ratio] 0.0 % Normal Less than [address] [facility] Comment on above: Order Comment: Campu s: M Performed By: #### L 200.43418 ####[facility] [id number] [place] [address]Dw# [phone] Platelet mean volume (Bld) [Entitic vol] 10.5 fL Normal 9.4-12.[address] [facility] Comment on above: Order Comment: Campu s: M Performed By: #### L 200.12019 ####[facility] ZFFZJEDMJV6543 [place], [place] [address]Ee# [phone] Platelets (Bld) [#/Vol] 394 K/CU MM Normal 150-[address] [facility] Comment on above: Order Comment: Campu s: M Performed By: #### L 200.42070 ####[facility] [id number] [place], [place] [address]Ft# [phone] RBC (Bld) [#/Vol] 2.67 M/CU MM Low 3.90-5.[address] [facility] Comment on above: Order Comment: Campu s: M Performed By: #### L 200.71095 ####[facility] JSOOOLXKSA7797 [place], [place] [address]Rf# [phone] WBC (Bld) [#/Vol] 7.9 K/CUMM Normal 4.5-11.[address] [facility] Comment on above: Order Comment: Campu s: M Performed By: #### L 200.24869 ####[facility] [id number] [place], [place] [address]Fy# [phone] DIET.[facility] 08-18-2020 DIET.[facility] Patient Name: ANDRE BLANCA [address] [facility] Date of : [address] [address] Unit Number: [id number] Nutrition Assessments Patient Status: ADM IN Attending [...] day, 17 calories/kg current weight determined using Merrick x 1.1. Current Estimated Protein Needs 104 [...] 08/08/20: Pt was following a regular diet [employer] and was not using any oral nutrition [...] 235.7# Weight this admission ranged: 226.6-235.7# Per [facility] Weight History: 02/2019: 223.6-234.5# BMI Criteria: >/= 40 Morbidly Obese Weight Changes: 1-2% in 1 week (1.7% loss x 1 week ) Minutes of Medical Nutrition Therapy: 30 Minutes Disclaimer This dictation was created using voice recognition software. Phonetic and/or minor grammatical errors may exist. eSign Date and Time Stefanie Lopez Verified/Reviewed by 08/18/[address] [facility] Nutrition Assessments Normal [facility] GFR ESTon 08-18-2020 IF AMER Greater than 60 [facility] Comment on above: Order Comment: Maciel s: M Minimal Draw: Y Performed By: #### L 500.44205, L500.97807 #### [facility] [address] [place] [address] IF non-AFR AMER Greater than 60 [facility] Comment on above: Order Comment: Maciel s: M Minimal Draw: Y Performed By: #### L 500.81278, L500.89209 #### [facility] [address] [place] [address] GLUCOSE METERon 08-18-2020 Glucose [Mass/Vol] 93 mg/dL Normal 85-[address] [facility] Glucose [Mass/Vol] 98 mg/dL Normal 85-[address] [facility] Glucose [Mass/Vol] 131 mg/dL High 85-[address] [facility] Glucose [Mass/Vol] 120 mg/dL Normal 85-[address] [facility] MAGNESIUMon 08-18-2020 Magnesium [Mass/Vol] 2.0 MG/CL Normal 1.6-2.6 [facility] Comment on above: Order Comment: Maciel s: M Minimal Draw: Y Performed By: #### L 500.77923, L500.06424 #### [facility] [address] [place] [address] OTPNon 08-18-2020 OT Progress Note Normal [facility] OTPN Occupational Therapy Inpatient Treatment Note Medical Diagnosis: Acute hypoxemic respiratory failure, Syncope, pneumonia, hypothyroidism OCCUPATIONAL PROFILE AND HISTORY Demographics: Age: 70Y Gender: Female Primary Language: [place] Preferred Language: [place] Referring Service/Team: Cardiology Rehabilitation Precautions/Restrictio ns: , [...] bed mobility including supine to sit, rolling, [facility] PATIENT NAME: ANDRE BLANCA [facility] Dr. Andrea MEDICAL REC #: [id number] [place] [address] ADMIT DATE: 07/27/20 SERVICE DATE: 08/18/20 Occupational [...] D/C Occupational Therapy treatment is to include: [facility] PATIENT NAME: ANDRE BLANCA Dr. Andrea MEDICAL REC #: [id number] [place] [address] ADMIT DATE: 07/27/20 SERVICE DATE: 08/18/20 Occupational [...] contact the Acute Therapy Department at extension [phone] Communication to Nursing: No updates at this time. Location of Patient at End of Therapy Session: In chair, chair alarm in place, call light within reach Services: Total Billed: 39 minutes (Timed: 39, Untimed: 0) 24.00 Timed: [70093] ADL-HOME MANAGEMENT EA 15 MIN 15.00 Timed: [44838] THER ACTIVITIES / 15 MIN 0.00 Untimed: [] OT Treatment General ORDER Signed by: ROSEANNA LLAMAS 08/18/2020 11:13:06 - CoSigned By: KASEY MINAYA 08/18/2020 1:22:30 PM [facility] PATIENT NAME: ANDRE BLANCA Traci Andrea MEDICAL REC #: [id number] [place] [address] ADMIT DATE: 07/27/20 SERVICE DATE: 08/18/20 Occupational Therapy Progress Note ATTENDING PHY: Marta Horvath DO Normal [facility] [place] PHOSon 08-18-2020 Phosphate [Mass/Vol] 4.50 mg/dL Normal 2.5-4.9 [facility] Comment on above: Order Comment: Abundiou s: M Minimal Draw: Y Result Comment: Elev ated m-protein (paraprotein) levels in the serum may be exhibited in patients with monoclonal gammopathies, causing falsely elevated inorganic phosphorus results. Performed By: #### L 500.69348, L500.00709 #### [facility] [address] [place] [address] PROG [facility] 08-18-2020 PROG [facility] Patient Name: ANDRE BLANCA [address] [facility] Date of : [address] [address] Unit Number: [id number] Progress Note-Hospitalist Patient Status: ADM IN Attending Doctor: Marta Hovrath DO Service Date: 08/18/201905 Chief Complaint Chief Complaint Syncope Subjective S: [...] bilateral legs) Diagnostic Data: Lab 24hr (CBC/BMP Luz) 08/18/20 1738: Whole Bld Glucose 93 08/18/20 [...] 0.30, Basophils # 0.10, Nucleated RBCs 0.0 08/17/209: Whole Bld Glucose 120 Assessment and Plan [...] medical floor to continue with her therapies. material planner is consulted in the event that patient [...] Time Tila Guan MD Verified/Reviewed by 08/18/201937 [facility] Progress Note-Hospitalist [facility] PROG.[facility]oc[facility] 08-18-2020 [facility]: ANDRE BLANCA [address] Date of : [address] [address] Unit Number: [id number] Progress Note-Jive Developer Patient Status: ADM IN Attending Doctor: Marta Horvath DO Service Date: 08/18/2046 Progress Note-Jive Developer Subjective Subjective: Some confusion this morning, but goes in and out of her mentation with good lucid moments . Pulling on her kaiser and would like to get that removed. Objective Vital Signs: Vital Signs (Last) Result Date Time Pulse Ox 89 08/18 0607 B/P 115/56 08/18 606 B/P Mean 79 08/18 606 O2 Delivery NASAL CANNULA 08/18 606 O2 Flow Rate 4 08/18 606 Temp 97.8 08/18 606 Pulse 81 08/18 606 Resp 20 08/18 06 IandO 24 Hour [...] HCl 20 MG QDAY 08/18 09 AC (PROZAC CAP) PO Guaifenesin 10 ML [...] IV 2126 Pravastatin Sodium 40 MG QHS 08/17 2200 AC 08/17 (PRAVACHOL TAB) PO 1958 Pregabalin [...] Cancelled 08/16 050 Sample Site Cancelled 08/16 0500 Patient Temperature Cancelled 08/16 050 pH Cancelled 08/16 050 pCO2 (35 - 45 MMHG) 52.4 H 08/11 538 pO2 Cancelled 08/16 050 HCO3 (22 - [...] 12.6 08/11 538 Doug Test Cancelled 08/16 050 Sodium (136 - 148 mmol/L) 147 08/11 538 Potassium (3.5 - 5.0 MMOL/L) 3.2 L 08/11 538 Glucose (60 - 80 MG/DL) 174 H 08/11 538 Lactate Cancelled 08/16 050 Patient Equipment Cancelled 08/16 050 Liter Flow (L/M) 45.00 08/11 538 FiO2 [...] transfer to Med Surg Floor today where [facility] will continue to follow. CCT 32 mins Disclaimer This dictation was created using voice recognition software. Phonetic and/or minor grammatical errors may exist. eSign Date and Time Marge Beckman DO Verified/Reviewed by 08/18/20 0902 [facility] Progress Note-Jive Developer [facility] PTPNon 08-18-2020 PT Progress Note [facility] PTPN Physical Therapy Inpatient Treatment Note Medical Diagnosis: 1. Acute hypoxemic respiratory failure 2. Syncope 3. Hypothyroidism multiple rib fxs Demographics: Age: 70Y Gender: Female Primary Language: [place] Preferred Language: [place] Rehabilitation Precautions/Restrictio ns: 4L via NC, puree [...] with Railing: A lot of help needed [facility] PATIENT NAME: ANDRE BLANCA [facility] Dr. Andrea MEDICAL REC #: [id number] [place] [address] ADMIT DATE: 07/27/20 SERVICE DATE: 08/18/20 Physical [...] day. Recommended Equipment: None issued this visit. [facility] PATIENT NAME: ANDRE BLANCA [facility] Dr. Andrea MEDICAL REC #: [id number] [place] [address] ADMIT DATE: 07/27/20 SERVICE DATE: 08/18/20 Physical Therapy Progress Note ATTENDING DAMIAN: Marta Horvath DO Recommended Consults: None currently. Development of Plan of Care: There was no change to plan of care today. If there are any questions regarding this service, please contact the Acute Therapy Department at extension [phone] Location of Patient at End of Therapy Session: In bed, bed alarm in place, call light within reach Services: Total Billed: 44 minutes (Timed: 44, Untimed: 0) 34.00 Timed: [57048] THER ACTIVITIES / 15 MIN 10.00 Timed: [67876] THERAPEUTIC EXERCISE EA 15 MIN 0.00 Untimed: [] PT Treatment- General ORDER Signed by: Alivia Cifuentes PTA 08/18/2020 15:00:21 - CoSigned By: Alivia Patel PT 08/18/2020 4:03:23 PM [facility] PATIENT NAME: ANDRE BLANCA [facility] Dr. Andrea MEDICAL REC #: [id number] [place] [address] ADMIT DATE: 07/27/20 SERVICE DATE: 08/18/20 Physical Therapy Progress Note ATTENDING PHY: Marta Horvath DO [facility] [employer] Progress Note [facility] Speech/Language Pathology Inpatient Treatment Note Medical Diagnosis: Acute hypoxemic respiratory failure Demographics: Age: 70Y Gender: Female Primary Language: [place] Preferred Language: [place] Referring Service/Team: Medicine Rehabilitation Precautions/Restrictio ns: 2L [...] unintelligible with several intelligible phrases Functional Status: Pureed/[place] Interventions: Swallowing: Pt was consuming pureed/nectar thick liquid lunch when [employer] ASSEM[employer]ER entered room. Pt had mildly increased oral [...] mechanical soft diet with thin liquids without [facility] PATIENT NAME: ANDRE BLANCA [facility] Dr. Andrea MEDICAL REC #: [id number] [place] [address] ADMIT DATE: 07/27/20 SERVICE DATE: 08/18/20 Speech-Language Progress Note ATTENDING PHY: Marta Horvath DO overt s/s aspiration during a meal [...] contact the Acute Therapy Department at extension [phone] Communication to Nursing: No updates at this time. Services: Total Billed: 45 minutes (Timed: 0, Untimed: 45) 0.00 Untimed: [] Speech Treatment ORDER 45.00 Untimed: [73403] SWALLOWING DYSFUNCT [place] Signed by: LIZABETH RITCHIE 08/18/2020 13:02:16 [facility] PATIENT NAME: ANDRE BLANCA [address] [facility] [address] Andrea MEDICAL REC #: [id number] [place] [address] ADMIT DATE: 07/27/20 SERVICE DATE: 08/18/20 Speech-Language Progress Note ATTENDING PHY: Marta Horvath DO Normal [facility] CBC W/DIFFon 08-17-2020 BASO ABS 0.10 K/CU MM Normal 0-0.[address] [facility] Comment on above: Order Comment: Abundiou s: M Minimal Draw: Y Performed By: #### L 500.61534, L500.57052 #### [facility] [address] [place] [address] Basophils/100 WBC (Bld) 0.7 % Normal 0-2 [facility] Comment on above: Order Comment: Abundiou s: M Minimal Draw: Y Performed By: #### L 500.06455, L500.38617 #### [facility] [address] [place] [address] EOS ABS 0.30 K/CU MM Normal 0-0.[address] [facility] Comment on above: Order Comment: Abundiou s: M Minimal Draw: Y Performed By: #### L 500.19173, L500.33836 #### [facility] [address] [place] [address] Eosinophils/100 WBC (Bld) 3.7 % Normal 0-[address] [facility] Comment on above: Order Comment: Abundiou s: M Minimal Draw: Y Performed By: #### L 500.04491, L500.31299 #### [facility] [address] [place] [address] Erythrocyte distribution width (RBC) [Ratio] 15.5 % High 11-14.[address] [facility] Comment on above: Order Comment: Maciel s: M Minimal Draw: Y Performed By: #### L 500.96844, L500.05103 #### [facility] [address] [place] [address] Hematocrit (Bld) [Volume fraction] 24.4 % Low 35.0-47.[address] [facility] Comment on above: Order Comment: Maciel s: M Minimal Draw: Y Performed By: #### L 500.00889, L500.33920 #### [facility] [address] [place] [address] Hemoglobin (Bld) [Mass/Vol] 7.6 g/dL Low 11.5-15.[address] [facility] Comment on above: Order Comment: Maciel s: M Minimal Draw: Y Performed By: #### L 500.82248, L500.91423 #### [facility] [address] [place] [address] IMMATR GRAN ABS 0.10 K/CU MM Normal Less than [address] [facility] Comment on above: Order Comment: Maciel s: M Minimal Draw: Y Performed By: #### L 500.52033, L500.87814 #### [facility] [address] [place] [address] IMMATURE GRAN % 1.0 % Normal Less than [address] [facility] Comment on above: Order Comment: Maciel s: M Minimal Draw: Y Performed By: #### L 500.08481, L500.27216 #### [facility] [address] [place] [address] Lymphocytes (Bld) [#/Vol] 1.20 K/CU MM Normal 0.9-4.[address] [facility] Comment on above: Order Comment: Campu s: M Minimal Draw: Y Performed By: #### L 500.88232, L500.94791 #### [facility] [address] [place] [address] Lymphocytes/100 WBC (Bld) 13.5 % Low 20-[address] [facility] Comment on above: Order Comment: Campu s: M Minimal Draw: Y Performed By: #### L 500.06228, L500.99684 #### [facility] [address] [place] [address] MCHC (RBC) [Mass/Vol] 31.1 g/dL Low 32.0-36.0 [facility] Comment on above: Order Comment: Campu s: M Minimal Draw: Y Performed By: #### L 500.95022, L500.13904 #### [facility] [address] [place] [address] MCV (RBC) [Entitic vol] 94.2 fL Normal 80.0-99.0 [facility] Comment on above: Order Comment: Campu s: M Minimal Draw: Y Performed By: #### L 500.94143, L500.33062 #### [facility] [address] [place] [address] MONO ABS 0.70 K/CU MM Normal 0.1-1.[address] [facility] Comment on above: Order Comment: Campu s: M Minimal Draw: Y Performed By: #### L 500.70150, L500.77791 #### [facility] [address] [place] [address] Monocytes/100 WBC (Bld) 7.5 % Normal 2-10 [facility] Comment on above: Order Comment: Campu s: M Minimal Draw: Y Performed By: #### L 500.63421, L500.37006 #### [facility] [address] [place] [address] NEUTROPHIL ABS 6.60 K/CU MM Normal 2.0-8.[address] [facility] Comment on above: Order Comment: Campu s: M Minimal Draw: Y Performed By: #### L 500.28695, L500.64301 #### [facility] [address] [place] [address] Neutrophils/100 WBC (Bld) 73.6 % Normal 45-[address] [facility] Comment on above: Order Comment: Campu s: M Minimal Draw: Y Performed By: #### L 500.95079, L500.56976 #### [facility] [address] [place] [address] Nucleated RBC/100 WBC (Bld) [Ratio] 0.0 % Normal Less than [address] [facility] Comment on above: Order Comment: Campu s: M Minimal Draw: Y Performed By: #### L 500.92740, L500.32925 #### [facility] [address] [place] [address] Platelet mean volume (Bld) [Entitic vol] 11.0 fL Normal 9.4-12.[address] [facility] Comment on above: Order Comment: Campu s: M Minimal Draw: Y Performed By: #### L 500.84739, L500.11203 #### [facility] [address] [place] [address] Platelets (Bld) [#/Vol] 350 K/CU MM Normal 150-[address] [facility] Comment on above: Order Comment: Campu s: M Minimal Draw: Y Performed By: #### L 500.67721, L500.57346 #### [facility] [address] [place] [address] RBC (Bld) [#/Vol] 2.59 M/CU MM Low 3.90-5.[address] [facility] Comment on above: Order Comment: Campu s: M Minimal Draw: Y Performed By: #### L 500.75702, L500.01480 #### [facility] [address] [place], [place] [address] WBC (Bld) [#/Vol] 9.0 K/CUMM Normal 4.5-11.[address] [facility] Comment on above: Order Comment: Campu s: M Minimal Draw: Y Performed By: #### L 500.36090, L500.49747 #### [facility] [address] [place] [address] CMPon 08-17-2020 Albumin [Mass/Vol] 1.9 g/dL Low 3.2-5.[address] [facility] Comment on above: Order Comment: Campu s: M Minimal Draw: Y Performed By: #### L 500.43271, L500.55797 #### [facility] [address] [place] [address] Albumin/Globulin [Mass ratio] 0.5 {ratio} Low 0.8-2.[address] [facility] Comment on above: Order Comment: Campu s: M Minimal Draw: Y Performed By: #### L 500.08411, L500.39498 #### [facility] [address] [place] [address] ALK PHOS 112 U/L Normal 45-[address] [facility] Comment on above: Order Comment: Campu s: M Minimal Draw: Y Performed By: #### L 500.13232, L500.17533 #### [facility] [address] [place], [place] [address] ALT [Catalytic activity/Vol] 19 U/L Normal 13-[address] [facility] Comment on above: Order Comment: Campu s: M Minimal Draw: Y Result Comment: RESU LTS MAY BE FALSELY DEPRESSED AFTER THE ADMINISTRATION OF SULFASALAZINE AND/OR SULFAPYRIDINE. Performed By: #### L 500.06442, L500.27124 #### [facility] [address] [place] [address] Anion gap [Moles/Vol] 3 mmol/L Low 5-16 [facility] Comment on above: Order Comment: Abundiou s: M Minimal Draw: Y Performed By: #### L 500.79571, L500.55988 #### [facility] [address] [place] [address] BILI TOTAL 0.20 MG/DL Normal 0.2-1.[address] [facility] Comment on above: Order Comment: Abundiou s: M Minimal Draw: Y Performed By: #### L 500.68218, L500.04867 #### [facility] [address] [place] [address] Calcium [Mass/Vol] 8.6 mg/dL Normal 8.5-10.[address] [facility] Comment on above: Order Comment: Maciel s: M Minimal Draw: Y Result Comment: NOTE NEW NORMAL RANGE DUE TO REAGENT CHANGE Performed By: #### L 500.95042, L500.71794 #### [facility] [address] [place] [address] Chloride [Moles/Vol] 98 mmol/L Normal 98-107 [facility] Comment on above: Order Comment: Abundiou s: M Minimal Draw: Y Performed By: #### L 500.08593, L500.04443 #### [facility] [address] [place] [address] CO2 [Moles/Vol] 39.0 mmol/L High 21-[address] [facility] Comment on above: Order Comment: Abundiou s: M Minimal Draw: Y Performed By: #### L 500.80158, L500.76521 #### [facility] [address] [place] [address] Creatinine [Mass/Vol] 0.57 mg/dL Normal 0.510-0.950 [facility] Comment on above: Order Comment: Abundiou s: M Minimal Draw: Y Result Comment: Geraldine ents receiving either N-Acetylcysteine (NAC) or Metamizole prior to venipuncture, may have falsely depressed results. Performed By: #### L 500.56991, L500.19731 #### [facility] [address] [place] [address] Globulin (S) [Mass/Vol] 4.0 g/dL Normal 2.2-4.2 [facility] Comment on above: Order Comment: Campu s: M Minimal Draw: Y Performed By: #### L 500.77521, L500.34546 #### [facility] [address] [place] [address] Glucose [Mass/Vol] 131 mg/dL High 70-[address] [facility] Comment on above: Order Comment: Campu s: M Minimal Draw: Y Result Comment: 70-1 00- Normal Fasting; 100-125 Impaired Fasting; greater than 126 on more than one result- Diabetes. ADA guidelines. Results may be falsely elevated after the administration of Sulfapyridine. Results may be falsely depressed after the administration of Sulfasalazine. Performed By: #### L 500.21798, L500.73128 #### [facility] [address] [place] [address] Potassium [Moles/Vol] 3.9 mmol/L Normal 3.5-5.1 [facility] Comment on above: Order Comment: Abundiou s: M Minimal Draw: Y Performed By: #### L 500.32610, L500.18113 #### [facility] [address] [place] [address] Protein [Mass/Vol] 5.9 g/dL Low 6.0-8.[address] [facility] Comment on above: Order Comment: Campu s: M Minimal Draw: Y Performed By: #### L 500.76249, L500.96947 #### [facility] [address] [place], [place] [address] SGOT (AST) 21 U/L Normal 8-[address] [facility] Comment on above: Order Comment: Campu s: M Minimal Draw: Y Result Comment: RESU LTS MAY BE FALSELY DEPRESSED AFTER THE ADMINISTRATION OF SULFASALAZINE AND/OR SULFAPYRIDINE. Performed By: #### L 500.57816, L500.61777 #### [facility] [place] [address] Sodium [Moles/Vol] 138 mmol/L Normal 136-[address] [facility] Comment on above: Order Comment: Campu s: M Minimal Draw: Y Performed By: #### L 500.48630, L500.81017 #### [facility] [address] [place] [address] Urea nitrogen [Mass/Vol] 10 mg/dL Normal 7-[address] [facility] Comment on above: Order Comment: Campu s: M Minimal Draw: Y Performed By: #### L 500.75418, L500.17070 #### [facility] [address] [place], [place] [address] Urea nitrogen/Creatinine [Mass ratio] 18 mg/mg Normal 15-[address] [facility] Comment on above: Order Comment: Campu s: M Minimal Draw: Y Performed By: #### L 500.60422, L500.62276 #### [facility] [address] [place], [place] [address] GFR ESTon 08-17-2020 IF AMER Greater than 60 Normal [facility] Comment on above: Order Comment: Campu s: M Minimal Draw: Y Performed By: #### L 500.69276, L500.79902 #### [facility] [address] [place], [place] [address] IF non-AFR AMER Greater than 60 Normal [facility] Comment on above: Order Comment: Campu s: M Minimal Draw: Y Performed By: #### L 500.37650, L500.57627 #### [facility] [address] [place] [address] GLUCOSE METERon 08-17-2020 Glucose [Mass/Vol] 121 mg/dL Normal 85-[address] [facility] Glucose [Mass/Vol] 169 mg/dL High 85-[address] [facility] MAGNESIUMon 08-17-2020 Magnesium [Mass/Vol] 2.1 MG/CL Normal 1.6-2.6 [facility] Comment on above: Order Comment: Maciel s: M What is the source? URINE Performed By: #### M 150.81501, M150.57725 #### [facility] [address] [place] [address] PROG.INTENon 08-17-2020 PROG.INTEN [facility] Patient Name: ANDRE BLANCA [address] [facility] Date of : [address] [address] Unit Number: [id number] Progress Note-Jive Developer Patient Status: ADM IN Attending Doctor: Marta Horvath DO Service Date: 08/17/20 1505 Progress Note-Jive Developer Subjective Subjective: Patient examined chart reviewed. Patient [...] Intake Total 1617 Output Total 3653 Balance -2036 Intake, Oral 210 Intake, Tube 1407 Feeding [...] Sodium 40 MG QDAY 07/28 09 AC 08/17 (LOVENOX D.SYR) SC 0819 Esomeprazole 40 MG BIDAC 08/05 0700 AC 08/17 Magnesium TUBE 0525 (NEXIUM CAP (TXI)) Fluoxetine HCl 20 MG QDAY 08/05 09 AC 08/17 (PROZAC CAP) TUBE 0819 Guaifenesin 10 ML TID 08/11 1400 AC 08/17 (ROBITUSSIN 200MG/10 TUBE 1335 ML ORAL LIQ) Haloperidol Lactate 2 MG Q4HPRN PRN 08/07 0900 AC 01/04 (HALDOL AMP) IV 0538 Heparin Sodium See [...] 0851 LIQUID UDC) Melatonin 10 MG QHS 08/090 AC 08/16 (MELATONIN TAB) TUBE 2015 Menthol/Methyl [...] 45.00 08/11 538 FiO2 % (%) 52 12/29 0538 Lab Results: Lab 24hr (CBC/BMP Luz) 08/17/20 1039: Whole Bld Glucose 169 H [...] CVA, and Former Tobacco Abuse presented to [facility] emergency department on 07/27 secondary to Syncope [...] Ag/SARS-CoV-2 negative. * Finished IV Unasyn (Day #7/) for aspiration pneumonia, watch off antibiotics. 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 Patient spent time at the [facility] according to son, that is the facility that she met her . * History of multiple falls in the past. * From critical care standpoint patient is okay for transfer to floors * F/E/N: HL fluids/replete lytes as needed /c/w TFs * GI/DVT Prophylaxis: PO nexium/Lovenox * CODE STATUS: DNR Comfort Care arrest, discussed with son Giana Blanca, area code [phone]. Did also discuss if patient is functionally declining, consider changing CODE STATUS to comfort only. Patient son was updated on 08/11/2020. ATTENDING ATTESTATION: Patient individually seen/examined. Agree with the ELECTRICIAN TECHNICIAN's notes, assessment and plan. Continue diuresis, currently down to 4 L of NC. Able to tolerate modified diet as well. CCT 35 mins Collaborating Physician: Marge Beckman DO Disclaimer This dictation was created using voice recognition software. Phonetic and/or minor grammatical errors may exist. eSign Date and Time Marge Beckman DO Verified/Reviewed by 08/17/20 Ana M2 Jamaal Thompson CNP [facility] Progress Note-Jive Developer [facility] PROG.PSYCHon 08-17-2020 PROG.PSYCH [facility] Patient Name: ANDRE BLANCA [address] Date of : [address] [id number] Unit Number: [id number] Progress Note-Psych Patient Status: DIS IN Attending Doctor: Marta Horvath DO Service Date: 08/17/20 0849 Progress Note - PSYCH Subjective: (2 ROS minimum) She says she slept well. She also says that she is hungry, sleepy and has had diarrhea. Objective: General appearance is alert. She is oriented to person says that she is in [facility] and the year is 2011. Concentration [...] SUSP) Clopidogrel Bisulfate 75 MG QDAY 08/05 09 AC 08/17 (PLAVIX TAB) TUBE 0819 Dexmedetomidine [...] Milind Gates MD Verified/Reviewed by 08/24/20 0743 [facility] Progress Note-Psych [facility] PTPNon 08-17-2020 PT Progress Note [facility] PTPN Physical Therapy Inpatient Treatment Note Medical Diagnosis: 1. Acute hypoxemic respiratory failure 2. Syncope 3. Hypothyroidism multiple rib fxs Demographics: Age: 70Y Gender: Female Primary Language: [place] Preferred Language: [place] Rehabilitation Precautions/Restrictio ns: restraints, 6L via NC [...] with Railing: A lot of help needed [facility] PATIENT NAME: ANDRE BLANCA [facility] Dr. Andrea MEDICAL REC #: [id number] [place] [address] ADMIT DATE: 07/27/20 SERVICE DATE: 08/17/20 Physical [...] no change to plan of care today. [facility] REC #: [id number] [place] [address] ADMIT DATE: 07/27/20 SERVICE DATE: 08/17/20 Physical Therapy Progress Note ATTENDING PHY: Marta Horvath DO If there are any questions regarding this service, please contact the Acute Therapy Department at extension [phone] Location of Patient at End of Therapy Session: In chair, chair alarm in place, call light within reach 2 point wrist restraints reapplied Services: Total Billed: 25 minutes (Timed: 25, Untimed: 0) 10.00 Timed: [22170] THER ACTIVITIES / 15 MIN 15.00 Timed: [28015] THERAPEUTIC EXERCISE EA 15 MIN 0.00 Untimed: [] PT Treatment- General ORDER Signed by: Ioana Holden, 08/17/2020 15:19:34 [facility] PATIENT NAME: ANDRE BLANCA [facility] Dr. Andrea MEDICAL REC #: [id number] [place] [address] ADMIT DATE: 07/27/20 SERVICE DATE: 08/17/20 Physical Therapy Progress Note ATTENDING PHY: Marta Horvath DO [facility] [employer] Progress Note Normal [facility] Speech/Language Pathology Inpatient Treatment Note Medical Diagnosis: Acute hypoxemic respiratory failure Demographics: Age: 70Y Gender: Female Primary Language: [place] Preferred Language: [place] Referring Service/Team: Cardiology Rehabilitation Precautions/Restrictio ns: NG tube, restraints, high flow NC, SUBJECTIVE Patient Report: Pt was very pleasant, eager to eat. "I'd like to take a nap after I get something to eat". Patient/Caregiver Goals: "I want something to eat". Pain: Patient currently without complaints of pain. OBJECTIVE General Observation: Pt was awake and alert, very pleasant and cooperative. Pt told DESK PENS ASSEMBLER that she had dysphagia prior to admit from her previous stroke. She said she would sometimes choke on solid foods. [facility]-ass[facility] as he hoped the NGT could be removed today. Swallowin/2- NPO recommended 1/4- Puree, nectar liquids Cognition: Pt is able [...] (x1 via spoon), and pudding, fed by DESK PENS ASSEMBLER. Pt had mildly increased a-p movement with all consistencies. Mild lingual pumping noted. Pt appeared to have rapid loss of oral control and pharyngeal discoordination with thin liquids as an immediate reflexive cough response occured after the swallow. With the initial sip of nectar liquid via spoon, pt coughed x1. However, multiple subsequent trials of nectar liquid via [facility] PATIENT NAME: ANDRE BLANCA [facility] Dr. Andrea MEDICAL REC #: [id number] [place] [address] ADMIT DATE: 07/27/20 SERVICE DATE: 08/17/20 Speech-Language [...] possible MBS pending patient progress; pt education [facility] PATIENT NAME: ANDRE BLANCA [facility] Dr. Andrea MEDICAL REC #: [id number] [place] [address] ADMIT DATE: 07/27/20 SERVICE DATE: 08/17/20 Speech-Language Progress Note ATTENDING PHY: Marta Horvath DO Recommended Speech/Language Pathology Therapy Follow Up: [...] contact the Acute Therapy Department at extension [phone] Communication to Nursing: Puree, nectar liquids, meds crushed in puree, 100% assistance Location of Patient at End of Therapy Session: In bed, bed alarm in place, call light within reach Services: Total Billed: 45 minutes (Timed: 0, Untimed: 45) 0.00 Untimed: [] Speech Treatment ORDER 45.00 Untimed: [14166] SWALLOWING DYSFUNCT TX Signed by: LIZABETH GOMES 08/17/2020 10:36:22 [facility] PATIENT NAME: ANDRE BLANCA [address] [facility] [address] Andrea MEDICAL REC #: [id number] [place] [address] ADMIT DATE: 07/27/20 SERVICE DATE: 08/17/20 Speech-Language Progress Note ATTENDING PHY: Marta Horvath DO Normal [facility] CBC W/DIFFon 08-16-2020 BASO ABS 0.10 K/CU MM Normal 0-0.[address] [facility] Comment on above: Order Comment: Abundiou s: M What is the source? URINE Performed By: #### M 150.77613, M150.14504 #### [facility] [address] [place] [address] Basophils/100 WBC (Bld) 0.7 % Normal 0-2 [facility] Comment on above: Order Comment: Maciel s: M What is the source? URINE Performed By: #### M 150.71606, M150.06682 #### [facility] [address] [place], [place] [address] EOS ABS 0.40 K/CU MM Normal 0-0.[address] [facility] Comment on above: Order Comment: Abundiou s: M What is the source? URINE Performed By: #### M 150.89287, M150.60973 #### [facility] [address] [place] [address] Eosinophils/100 WBC (Bld) 4.1 % Normal 0-[address] [facility] Comment on above: Order Comment: Campu s: M What is the source? URINE Performed By: #### M 150.50989, M150.00115 #### [facility] [address] [place] [address] Erythrocyte distribution width (RBC) [Ratio] 15.8 % High 11-14.[address] [facility] Comment on above: Order Comment: Abundiou s: M What is the source? URINE Performed By: #### M 150.72371, M150.18477 #### [facility] [address] [place] [address] Hematocrit (Bld) [Volume fraction] 26.5 % Low 35.0-47.[address] [facility] Comment on above: Order Comment: Abundiou s: M What is the source? URINE Performed By: #### M 150.92226, M150.67396 #### [facility] [address] [place] [address] Hemoglobin (Bld) [Mass/Vol] 8.0 g/dL Low 11.5-15.[address] [facility] Comment on above: Order Comment: Abundiou s: M What is the source? URINE Performed By: #### M 150.13400, M150.02391 #### [facility] [place] [address] IMMATR GRAN ABS 0.10 K/CU MM Normal Less than [address] [facility] Comment on above: Order Comment: Abundiou s: M What is the source? URINE Performed By: #### M 150.27090, M150.67832 #### [facility] [address] [place] [address] IMMATURE GRAN % 1.0 % Normal Less than [address] [facility] Comment on above: Order Comment: Abundiou s: M What is the source? URINE Performed By: #### M 150.61234, M150.20519 #### [facility] [place] [address] Lymphocytes (Bld) [#/Vol] 1.30 K/CU MM Normal 0.9-4.[address] [facility] Comment on above: Order Comment: Abundiou s: M What is the source? URINE Performed By: #### M 150.27777, M150.36651 #### [facility] [place] [address] Lymphocytes/100 WBC (Bld) 13.6 % Low 20-[address] [facility] Comment on above: Order Comment: Campu s: M What is the source? URINE Performed By: #### M 150.62798, M150.88917 #### [facility] [place] [address] MCHC (RBC) [Mass/Vol] 30.2 g/dL Low 32.0-36.0 [facility] Comment on above: Order Comment: Campu s: M What is the source? URINE Performed By: #### M 150.65831, M150.06360 #### [facility] [address] [place] [address] MCV (RBC) [Entitic vol] 97.1 fL Normal 80.0-99.0 [facility] Comment on above: Order Comment: Abundiou s: M What is the source? URINE Performed By: #### M 150.97507, M150.06344 #### [facility] [address] [place] [address] MONO ABS 0.70 K/CU MM Normal 0.1-1.[address] [facility] Comment on above: Order Comment: Campu s: M What is the source? URINE Performed By: #### M 150.95087, M150.70841 #### [facility] [place] [address] Monocytes/100 WBC (Bld) 7.4 % Normal 2-10 [facility] Comment on above: Order Comment: Campu s: M What is the source? URINE Performed By: #### M 150.76843, M150.23382 #### [facility] [address] [place], [place] [address] NEUTROPHIL ABS 6.70 K/CU MM Normal 2.0-8.[address] [facility] Comment on above: Order Comment: Campu s: M What is the source? URINE Performed By: #### M 150.55802, M150.00621 #### [facility] [address] [place], [place] [address] Neutrophils/100 WBC (Bld) 73.2 % Normal 45-[address] [facility] Comment on above: Order Comment: Campu s: M What is the source? URINE Performed By: #### M 150.61397, M150.37177 #### [facility] [address] [place] [address] Nucleated RBC/100 WBC (Bld) [Ratio] 0.0 % Normal Less than [address] [facility] Comment on above: Order Comment: Campu s: M What is the source? URINE Performed By: #### M 150.50459, M150.31875 #### [facility] [address] [place] [address] Platelet mean volume (Bld) [Entitic vol] 10.9 fL Normal 9.4-12.[address] [facility] Comment on above: Order Comment: Campu s: M What is the source? URINE Performed By: #### M 150.31893, M150.93375 #### [facility] [address] [place] [address] Platelets (Bld) [#/Vol] 301 K/CU MM Normal 150-[address] [facility] Comment on above: Order Comment: Campu s: M What is the source? URINE Performed By: #### M 150.88508, M150.00004 #### [facility] [address] [place] [address] RBC (Bld) [#/Vol] 2.73 M/CU MM Low 3.90-5.[address] [facility] Comment on above: Order Comment: Campu s: M What is the source? URINE Performed By: #### M 150.79616, M150.69359 #### [facility] [place] [address] WBC (Bld) [#/Vol] 9.2 K/CUMM Normal 4.5-11.[address] [facility] Comment on above: Order Comment: Campu s: M What is the source? URINE Performed By: #### M 150.77471, M150.54469 #### [facility] [address] [place] [address] CMPon 08-16-2020 Albumin [Mass/Vol] 1.9 g/dL Low 3.2-5.[address] [facility] Comment on above: Order Comment: Campu s: M Performed By: #### L 200.11796 #### [facility] [place] [address] Albumin/Globulin [Mass ratio] 0.5 {ratio} Low 0.8-2.[address] [facility] Comment on above: Order Comment: Campu s: M Performed By: #### L 200.02071 #### [facility] [facility] [address] [place] [address] ALK PHOS 129 U/L High 45-[address] [facility] Comment on above: Order Comment: Campu s: M Performed By: #### L 200.47283 #### [facility] [address] [place] [address] ALT [Catalytic activity/Vol] 22 U/L Normal 13-[address] [facility] Comment on above: Order Comment: Campu s: M Result Comment: RESU LTS MAY BE FALSELY DEPRESSED AFTER THE ADMINISTRATION OF SULFASALAZINE AND/OR SULFAPYRIDINE. Performed By: #### L 200.38994 #### [facility] [address] [place] [address] Anion gap [Moles/Vol] 4 mmol/L Low 5-16 [facility] Comment on above: Order Comment: Campu s: M Performed By: #### L 200.58186 #### [facility] [address] [place] [address] BILI TOTAL 0.20 MG/DL Normal 0.2-1.[address] [facility] Comment on above: Order Comment: Campu s: M Performed By: #### L 200.17763 #### [facility] [address] [place] [address] Calcium [Mass/Vol] 8.6 mg/dL Normal 8.5-10.[address] [facility] Comment on above: Order Comment: Campu s: M Result Comment: NOTE NEW NORMAL RANGE DUE TO REAGENT CHANGE Performed By: #### L 200.49503 #### [facility] [address] [place] [address] Chloride [Moles/Vol] 98 mmol/L Normal 98-107 [facility] Comment on above: Order Comment: Campu s: M Performed By: #### L 200.53581 #### [facility] [address] [place] [address] CO2 [Moles/Vol] 38.0 mmol/L High 21-[address] [facility] Comment on above: Order Comment: Campu s: M Performed By: #### L 200.08145 #### [facility] [address] [place] [address] Creatinine [Mass/Vol] 0.61 mg/dL Normal 0.510-0.950 [facility] Comment on above: Order Comment: Campu s: M Result Comment: Geraldine ents receiving either N-Acetylcysteine (NAC) or Metamizole prior to venipuncture, may have falsely depressed results. Performed By: #### L 200.54964 #### [facility] [address] [place] [address] Globulin (S) [Mass/Vol] 3.8 g/dL Normal 2.2-4.2 [facility] Comment on above: Order Comment: Campu s: M Performed By: #### L 200.97301 #### [facility] [address] [place] [address] Glucose [Mass/Vol] 158 mg/dL High 70-[address] [facility] Comment on above: Order Comment: Campu s: M Result Comment: 70-1 00- Normal Fasting; 100-125 Impaired Fasting; greater than 126 on more than one result- Diabetes. ADA guidelines. Results may be falsely elevated after the administration of Sulfapyridine. Results may be falsely depressed after the administration of Sulfasalazine. Performed By: #### L 200.32920 #### [facility] [address] [place] [address] Potassium [Moles/Vol] 4.0 mmol/L Normal 3.5-5.1 [facility] Comment on above: Order Comment: Campu s: M Performed By: #### L 200.92596 #### [facility] [address] [place] [address] Protein [Mass/Vol] 5.7 g/dL Low 6.0-8.[address] [facility] Comment on above: Order Comment: Campu s: M Performed By: #### L 200.03428 #### [facility] [address] [place] [address] SGOT (AST) 25 U/L Normal 8-[address] [facility] Comment on above: Order Comment: Campu s: M Result Comment: RESU LTS MAY BE FALSELY DEPRESSED AFTER THE ADMINISTRATION OF SULFASALAZINE AND/OR SULFAPYRIDINE. Performed By: #### L 200.17031 #### [facility] [address] [place] [address] Sodium [Moles/Vol] 139 mmol/L Normal 136-[address] [facility] Comment on above: Order Comment: Campu s: M Performed By: #### L 200.92766 #### [facility] [address] [place] [address] Urea nitrogen [Mass/Vol] 11 mg/dL Normal 7-[address] [facility] Comment on above: Order Comment: Campu s: M Performed By: #### L 200.75276 #### [facility] [address] [place], [place] [address] Urea nitrogen/Creatinine [Mass ratio] 18 mg/mg Normal 15-[address] [facility] Comment on above: Order Comment: Campu s: M Performed By: #### L 200.40124 #### [facility] [address] [place], [place] [address] GFR ESTon 08-16-2020 IF AMER Greater than 60 Normal [facility] Comment on above: Order Comment: Campu s: M Performed By: #### L 200.18053 #### [facility] [address] [place] [address] IF non-AFR AMER Greater than 60 Normal [facility] Comment on above: Order Comment: Campu s: M Performed By: #### L 200.68304 #### [facility] [place] [address] GLUCOSE METERon 08-16-2020 Glucose [Mass/Vol] 128 mg/dL High 85-[address] [facility] Glucose [Mass/Vol] 129 mg/dL High 85-[address] [facility] Glucose [Mass/Vol] 168 mg/dL High 85-125 [facility] [place] PROG IMSon 08-16-2020 PROG [facility] Patient Name: ANDRE BLANCA [address] Date of : 48 [place] [address] Unit Number: [id number] Progress Note-Hospitalist Patient Status: ADM IN Attending Doctor: Marta Horvath DO Service Date: 08/16/20 09 Chief Complaint Chief Complaint Syncope Subjective S: (2 ROS minimum) Not seen, chart reviewed. Objective (ROS) Nursing Vitals Vital Signs (Last) Result Date Time Pulse Ox 90 08/16 0818 O2 Delivery NASAL CANNULA 08/16 0718 O2 Flow Rate 6L 08/16 0818 B/P 124/58 08/16 0810 B/P Mean 84 08/16 0810 Temp 98.6 08/16 0810 Pulse 86 08/16 0810 Resp 24 08/16 0810 Diagnostic Data: Lab 24hr ([facility]) 08/16/20 0536: [Embedded Image Not Available] Anion [...] and Time Tila Guan MD Verified/Reviewed by 08/16/20917 [facility] Progress Note-Hospitalist [facility] PROG.Rocael 08-16-2020 PROG.[facility] Patient Name: ANDRE BLANCA [address] Date of : [address] [place], [place] [address] Unit Number: [id number] Progress Note-Jive Developer Patient Status: ADM IN Attending Doctor: Marta Horvath DO Service Date: 08/16/20815 Progress Note-Jive Developer Subjective Subjective: Attempts to to wean high flow oxygen. Patient currently on 6 L 8788%. Patient is up in chair. Patient having loose stools, currently on stool softener. Patient answering some questions about self. Objective Vital Signs: Vital Signs (Last) Result Date Time Pulse Ox 88 08/16 0810 B/P 124/58 08/16 0810 B/P Mean 84 08/16 0810 O2 Delivery NASAL CANNULA 08/16 809 O2 Flow Rate 6L 08/16 0810 Temp [...] Sodium 40 MG QDAY 07/28 09 AC 08/15 (LOVENOX D.SYR) SC 0926 Esomeprazole 40 MG BIDAC 08/05 0700 AC 08/16 Magnesium TUBE 0531 (NEXIUM CAP (TXI)) Fluoxetine HCl 20 MG QDAY 08/05 09 AC 08/15 (PROZAC CAP) TUBE 0925 Guaifenesin 10 ML TID 08/11 1400 AC 08/15 (ROBITUSSIN 200MG/10 TUBE 205 ML ORAL LIQ) Haloperidol Lactate 2 MG Q4HPRN PRN 08/07 09 AC 08/15 (HALDOL AMP) IV 205 Heparin Sodium See Dose Q24H 08/06 09 AC 08/15 (Porcine) Insts (1) IV 1805 (HEP-LOCK *10*UNITS/ ML IV D.SYR.PF) Heparin Sodium See Dose PRN PRN 08/05 1500 AC (Porcine) Insts (2) IV (HEP-LOCK *10*UNITS/ ML IV D.SYR.PF) Levothyroxine Sodium 0.125 MG QDAYAC 08/09 07 AC 08/16 (SYNTHROID TAB) PO 0531 Loperamide HCl 2 MG PRN PRN 08/04 1930 AC 08/14 (IMODIUM AD ORAL TUBE 0849 LIQUID UDC) Melatonin 10 MG QHS 08/09 2200 AC 08/15 (MELATONIN TAB) TUBE 211 Menthol/Methyl 1 APPL BIDPRN PRN 07/28 0030 [...] 08/08 2200 AC 08/15 (SEROQUEL TAB) TUBE 211 Risperidone 3 MG BID 08/09 2100 AC 08/15 (RISPERDAL TAB) TUBE 205 Sodium Chloride 4 ML QIDRT 08/14 1630 [...] Report Impression - Status: SIGNED Entered: 08/14/2020 1634 IMPRESSION: The tip of the OG tube is in the mid to distal stomach. Impression By: JASON PATIÑO M.D. 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 Patient spent time at the [facility] [address] according to son, that is the facility [...] and Time Jayesh Loera MD Verified/Reviewed by 08/16/[address] [facility] Progress Note-Jive Developer Normal [facility] BMPon 08-15-2020 Anion gap [Moles/Vol] 3 mmol/L Low 5-16 [facility] Comment on above: Order Comment: Campu s: M Performed By: #### L 500.20478, L500.02169, L500.50695 ####[facility] [id number] [place], [place] [address]Kq# [phone] Calcium [Mass/Vol] 8.1 mg/dL Low 8.5-10.[address] [facility] Comment on above: Order Comment: Campu s: M Result Comment: NOTE NEW NORMAL RANGE DUE TO REAGENT CHANGE Performed By: #### L 500.31383, L500.65316, L500.28149 ####[facility] [id number] [place], [place] [address]Ru# [phone] Chloride [Moles/Vol] 99 mmol/L Normal 98-107 [facility] Comment on above: Order Comment: Campu s: M Performed By: #### L 500.95563, L500.73253, L500.19491 ####[facility] [id number] [place], [place] [address]Qg# [phone] CO2 [Moles/Vol] 40.0 mmol/L High 21-32 [facility] [place] Comment on above: Order Comment: Campu s: M Performed By: #### L 500.27424, L500.87809, L500.24569 ####[facility] [id number] [place], [place] [address]Ng# [phone] Creatinine [Mass/Vol] 0.62 mg/dL Normal 0.510-0.950 [facility] [place] Comment on above: Order Comment: Campu s: M Result Comment: Geraldine ents receiving either N-Acetylcysteine (NAC) or Metamizole prior to venipuncture, may have falsely depressed results. Performed By: #### L 500.22885, L500.88917, L500.37288 ####[facility] [id number] [place], [place] [address]Yq# [phone] Glucose [Mass/Vol] 177 mg/dL High 70-[address] [facility] Comment on above: Order Comment: Campu s: M Result Comment: 70-1 00- Normal Fasting; 100-125 Impaired Fasting; greater than 126 on more than one result- Diabetes. ADA guidelines. Results may be falsely elevated after the administration of Sulfapyridine. Results may be falsely depressed after the administration of Sulfasalazine. Performed By: #### L 500.00705, L500.25787, L500.52032 ####[facility] [id number] [place], [place] [address]Aq# [phone] Potassium [Moles/Vol] 4.0 mmol/L Normal 3.5-5.1 [facility] Comment on above: Order Comment: Campu s: M Performed By: #### L 500.26289, L500.90192, L500.60662 ####[facility] [id number] [place], [place] [address]Ij# [phone] Sodium [Moles/Vol] 139 mmol/L Normal 136-[address] [facility] Comment on above: Order Comment: Campu s: M Performed By: #### L 500.23922, L500.46435, L500.83740 ####[facility] [id number] [place], [place] [address]Fc# [phone] Urea nitrogen [Mass/Vol] 12 mg/dL Normal 7-[address] [facility] Comment on above: Order Comment: Campu s: M Performed By: #### L 500.43176, L500.52975, L500.97285 ####[facility] [id number] [place], [place] [address]Ev# [phone] Urea nitrogen/Creatinine [Mass ratio] 19 mg/mg Normal 15-[address] [facility] Comment on above: Order Comment: Campu s: M Performed By: #### L 500.77010, L500.63226, L500.61256 ####[facility] [id number] [place], [place] [address]Rv# [phone] CBC W/DIFFon 08-15-2020 BASO ABS 0.00 K/CU MM Normal 0-0.[address] [facility] Comment on above: Order Comment: Campu s: M What is the source? URINE Performed By: #### M 150.64437, M150.98249 #### [facility] [address] [place] [address] Basophils/100 WBC (Bld) 0.4 % Normal 0-2 [facility] Comment on above: Order Comment: Campu s: M What is the source? URINE Performed By: #### M 150.83300, M150.49118 #### [facility] [address] [place] [address] EOS ABS 0.30 K/CU MM Normal 0-0.[address] [facility] Comment on above: Order Comment: Campu s: M What is the source? URINE Performed By: #### M 150.77279, M150.18172 #### [facility] [address] [place] [address] Eosinophils/100 WBC (Bld) 3.0 % Normal 0-[address] [facility] Comment on above: Order Comment: Campu s: M What is the source? URINE Performed By: #### M 150.23147, M150.19342 #### [facility] [address] [place] [address] Erythrocyte distribution width (RBC) [Ratio] 15.6 % High 11-14.[address] [facility] Comment on above: Order Comment: Campu s: M What is the source? URINE Performed By: #### M 150.99770, M150.92536 #### [facility] [address] [place] [address] Hematocrit (Bld) [Volume fraction] 25.2 % Low 35.0-47.[address] [facility] Comment on above: Order Comment: Campu s: M What is the source? URINE Performed By: #### M 150.85466, M150.48775 #### [facility] [address] [place] [address] Hemoglobin (Bld) [Mass/Vol] 7.6 g/dL Low 11.5-15.[address] [facility] Comment on above: Order Comment: Campu s: M What is the source? URINE Performed By: #### M 150.78335, M150.36567 #### [facility] [address] [place] [address] IMMATR GRAN ABS 0.10 K/CU MM Normal Less than [address] [facility] Comment on above: Order Comment: Campu s: M What is the source? URINE Performed By: #### M 150.35636, M150.25850 #### [facility] [address] [place] [address] IMMATURE GRAN % 1.3 % Normal Less than [address] [facility] Comment on above: Order Comment: Campu s: M What is the source? URINE Performed By: #### M 150.12773, M150.00725 #### [facility] [address] [place] [address] Lymphocytes (Bld) [#/Vol] 0.90 K/CU MM Normal 0.9-4.[address] [facility] Comment on above: Order Comment: Campu s: M What is the source? URINE Performed By: #### M 150.65527, M150.07517 #### [facility] [address] [place] [address] Lymphocytes/100 WBC (Bld) 9.0 % Low 20-[address] [facility] Comment on above: Order Comment: Campu s: M What is the source? URINE Performed By: #### M 150.01216, M150.49979 #### [facility] [address] [place] [address] MCHC (RBC) [Mass/Vol] 30.2 g/dL Low 32.0-36.0 [facility] Comment on above: Order Comment: Campu s: M What is the source? URINE Performed By: #### M 150.14231, M150.65575 #### [facility] [address] [place] [address] MCV (RBC) [Entitic vol] 97.3 fL Normal 80.0-99.0 [facility] Comment on above: Order Comment: Campu s: M What is the source? URINE Performed By: #### M 150.62817, M150.79343 #### [facility] [address] [place] [address] MONO ABS 0.60 K/CU MM Normal 0.1-1.[address] [facility] Comment on above: Order Comment: Campu s: M What is the source? URINE Performed By: #### M 150.63951, M150.81112 #### [facility] [place] [address] Monocytes/100 WBC (Bld) 5.7 % Normal 2-10 [facility] Comment on above: Order Comment: Campu s: M What is the source? URINE Performed By: #### M 150.28935, M150.69134 #### [facility] [address] [place] [address] NEUTROPHIL ABS 8.30 K/CU MM Normal 2.0-8.[address] [facility] Comment on above: Order Comment: Campu s: M What is the source? URINE Performed By: #### M 150.12608, M150.99154 #### [facility] [address] [place], [place] [address] Neutrophils/100 WBC (Bld) 80.6 % High 45-[address] [facility] Comment on above: Order Comment: Campu s: M What is the source? URINE Performed By: #### M 150.27879, M150.49474 #### [facility] [address] [place], [place] [address] Nucleated RBC/100 WBC (Bld) [Ratio] 0.0 % Normal Less than [address] [facility] Comment on above: Order Comment: Campu s: M What is the source? URINE Performed By: #### M 150.87292, M150.31551 #### [facility] [address] [place] [address] Platelet mean volume (Bld) [Entitic vol] 11.1 fL Normal 9.4-12.[address] [facility] Comment on above: Order Comment: Campu s: M What is the source? URINE Performed By: #### M 150.28829, M150.49233 #### [facility] [address] [place] [address] Platelets (Bld) [#/Vol] 245 K/CU MM Normal 150-[address] [facility] Comment on above: Order Comment: Campu s: M What is the source? URINE Performed By: #### M 150.95792, M150.90889 #### [facility] [address] [place] [address] RBC (Bld) [#/Vol] 2.59 M/CU MM Low 3.90-5.[address] [facility] Comment on above: Order Comment: Campu s: M What is the source? URINE Performed By: #### M 150.76966, M150.42082 #### [facility] [place] [address] WBC (Bld) [#/Vol] 10.2 K/CUMM Normal 4.5-11.[address] [facility] Comment on above: Order Comment: Campu s: M What is the source? URINE Performed By: #### M 150.32630, M150.84104 #### [facility] [place] [address] GFR ESTon 08-15-2020 IF AMER Greater than 60 Normal [facility] Comment on above: Order Comment: Campu s: M Performed By: #### L 500.78996, L500.73217, L500.89519 ####[facility] [id number] [place], [place] [address]Iq# [phone] IF non-AFR AMER Greater than 60 Normal [facility] Comment on above: Order Comment: Campu s: M Performed By: #### L 500.67945, L500.84434, L500.39678 ####[facility] [id number] [place], [place] [address]Ol# [phone] MAGNESIUMon 08-15-2020 Magnesium [Mass/Vol] 1.7 MG/CL Normal 1.6-2.6 [facility] Comment on above: Order Comment: Campu s: M Performed By: #### L 500.58667, L500.43845, L500.94434 ####[facility] [id number] [place], [place] [address]Bp# [phone] PROG IMSon 08-15-2020 PROG [facility] Patient Name: ANDRE BLANCA [address] Date of : [address] [place], [place] [address] Unit Number: [id number] Progress Note-Hospitalist Patient Status: ADM IN Attending [...] and Time Tila Guan MD Verified/Reviewed by 08/15/201858 [facility] Progress Note-Hospitalist [facility] PROG.INTEStacey 08-15-2020 [facility] Name: ANDRE BLANCA [address] Date of : [address] [place], [place] [address] Unit Number: [id number] Progress Note-Jive Developer Patient Status: ADM IN Attending Doctor: Marta Horvath DO Service Date: 08/15/20 5176 Progress Note-Jive Developer Subjective Subjective: Still requiring high flow oxygen at this time. Patient seems more oriented, answering questions about self. Per nursing staff patient got 8 hours of sleep last night. Objective Vital Signs: Vital Signs (Last) Result Date Time Pulse Ox 95 08/15 0742 O2 Delivery HIGH FLOW NC 08/15 0742 O2 Flow Rate 50 08/15 0742 B/P 132/61 08/15 0600 B/P Mean 88 08/15 0600 Temp 98.7 08/15 0600 Pulse 93 08/15 0600 Resp 22 08/15 0600 IandO 24 [...] 1608 Clopidogrel Bisulfate 75 MG QDAY 08/05 0900 AC 08/14 (PLAVIX TAB) TUBE 0850 Dexmedetomidine [...] HCl 20 MG QDAY 08/05 0900 AC 08/14 (PROZAC CAP) TUBE 0849 Guaifenesin 10 ML TID 08/11 1400 AC 08/14 (ROBITUSSIN 200MG/10 TUBE 2028 ML ORAL LIQ) Haloperidol Lactate 2 MG [...] 2 MG PRN PRN 08/04 193 AC 08/14 (IMODIUM AD ORAL TUBE 0849 [...] Sodium 40 MG QHS 08/04 2200 AC 08/14 (PRAVACHOL TAB) TUBE 2028 Pregabalin 150 MG BID 08/04 2100 AC 08/14 (LYRICA CAP) TUBE 2027 Quetiapine Fumarate 100 MG QHS 08/080 AC 08/14 (SEROQUEL TAB) TUBE 2118 Risperidone 3 MG BID 08/09 2100 AC 08/14 (RISPERDAL TAB) TUBE 2028 Sodium Chloride 4 ML QIDRT 08/14 1630 [...] M.D. RADIOLOGY - ABDOMEN OR KUB 08/14 173 Report Impression - Status: SIGNED Entered: 08/14/2020 1747 IMPRESSION: The tip of the OG tube is in the mid to distal stomach. Impression By: JASON PATIÑO M.D. Assessment/Plan Assessment/Problem List: 1. 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 Patient spent time at the [facility] [address] according to son, that is the facility [...] Jayesh Loera MD Verified/Reviewed by 08/15/20 0800 [facility] [place] Progress Note-Jive Developer Normal [facility] [employer] 08-15-2020 [employer] Assessment Report Normal [facility] Speech/Language Pathology Inpatient Clinical Swallow Evaluation Medical Diagnosis: Acute hypoxemic respiratory failure Therapy Diagnosis: Rank Code Description 1 R13.10 Dysphagia, unspecified Demographics: Age: 70Y Gender: Female Primary Language: [place] Preferred Language: [place] Referring Service/Team: Medicine Past Medical History: PMHx: [...] Illness 70-year-old female, primary care through the [facility], past medical history CVA, hypothyroidism, COPD not on home oxygen, recurrent syncopal episodes in the past that she states have been worked up by her physicians at the [facility], testing done at the [facility] and here at [facility], concluding that she has "low blood [...] in bed, 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 Andrea MEDICAL REC #: [id number] [place] [address] ADMIT DATE: 07/27/20 SERVICE DATE: 08/15/20 Speech-Language Assessment Report ATTENDING GIRISHY: Marta Horvath DO seems to be reliable [...] not have bottom dentition. Condition of Oral Mucosa:WFL Cognitive Status: Impaired; confusion noted. Able to [...] risk for aspiration/laryngeal penetration at this time. [facility] PATIENT NAME: ANDRE BLANCA [facility] Dr. Andrea MEDICAL REC #: [id number] [place] [address] ADMIT DATE: 07/27/20 SERVICE DATE: 08/15/20 Speech-Language Assessment Report ATTENDING DAMIAN: Marta Horvath DO Compensatory Strategies:- Interventions: None [...] contact the Acute Therapy Department at extension [phone] Communication to Nursing: Explained results/recommendation s to nursing after [facility] PATIENT NAME: ANDRE BLANCA [facility] Dr. Andrea MEDICAL REC #: [id number] [place] [address] ADMIT DATE: 07/27/20 SERVICE DATE: 08/15/20 Speech-Language Assessment Report ATTENDING PHY: Marta Horvath DO session. Location of Patient at End of Therapy Session: In chair, call light within reach restraints in place Services: Total Billed: 45 minutes (Timed: 0, Untimed: 45) 45.00 Untimed: [[id number]] BDSIDE SWALLOW EVAL 0.00 Untimed: [] Speech Treatment ORDER 0.00 Untimed: [] SPEECH THERAPY CONSULT Signed by: LIZABETH Taylor 08/15/2020 13:35:38 [facility] MEDICAL REC #: [id number] [place] [address] ADMIT DATE: 07/27/20 SERVICE DATE: 08/15/20 Speech-Language Assessment Report ATTENDING PHY: Marta Horvath DO Normal [facility] [place] BMPon 08-14-2020 Anion gap [Moles/Vol] 3 mmol/L Low 5-16 [facility] Comment on above: Order Comment: Campu s: M Performed By: #### L 500.42744, L500.74108, L500.48823 ####[facility] [id number] [place], [place] [address]An# [phone] Calcium [Mass/Vol] 8.3 mg/dL Low 8.5-10.[address] [facility] Comment on above: Order Comment: Campu s: M Result Comment: NOTE NEW NORMAL RANGE DUE TO REAGENT CHANGE Performed By: #### L 500.38597, L500.15273, L500.32548 ####[facility] [id number] [place], [place] [address]Ii# [phone] Chloride [Moles/Vol] 99 mmol/L Normal 98-107 [facility] Comment on above: Order Comment: Campu s: M Performed By: #### L 500.93208, L500.40808, L500.71995 ####[facility] [id number] [place], [place] [address]Jv# [phone] CO2 [Moles/Vol] 38.0 mmol/L High 21-[address] [facility] Comment on above: Order Comment: Campu s: M Performed By: #### L 500.72408, L500.31806, L500.47954 ####[facility] [id number] [place], [place] [address]Ae# [phone] Creatinine [Mass/Vol] 0.61 mg/dL Normal 0.510-0.950 [facility] Comment on above: Order Comment: Campu s: M Result Comment: Geraldine ents receiving either N-Acetylcysteine (NAC) or Metamizole prior to venipuncture, may have falsely depressed results. Performed By: #### L 500.59642, L500.56939, L500.29345 ####[facility] [id number] [place], [place] [address]Tz# [phone] Glucose [Mass/Vol] 171 mg/dL High 70-[address] [facility] Comment on above: Order Comment: Campu s: M Result Comment: 70-1 00- Normal Fasting; 100-125 Impaired Fasting; greater than 126 on more than one result- Diabetes. ADA guidelines. Results may be falsely elevated after the administration of Sulfapyridine. Results may be falsely depressed after the administration of Sulfasalazine. Performed By: #### L 500.11432, L500.00844, L500.26818 ####[facility] [id number] [place], [place] [address]Wr# [phone] Potassium [Moles/Vol] 4.2 mmol/L Normal 3.5-5.1 [facility] Comment on above: Order Comment: Campu s: M Performed By: #### L 500.80998, L500.43751, L500.79724 ####[facility] [id number] [place], [place] [address]Tj# [phone] Sodium [Moles/Vol] 139 mmol/L Normal 136-[address] [facility] Comment on above: Order Comment: Campu s: M Performed By: #### L 500.33923, L500.02967, L500.19612 ####[facility] [id number] [place], [place] [address]Dy# [phone] Urea nitrogen [Mass/Vol] 11 mg/dL Normal 7-[address] [facility] Comment on above: Order Comment: Campu s: M Performed By: #### L 500.46041, L500.62179, L500.28930 ####[facility] [id number] [place], [place] [address]Pi# [phone] Urea nitrogen/Creatinine [Mass ratio] 18 mg/mg Normal 15-[address] [facility] Comment on above: Order Comment: Campu s: M Performed By: #### L 500.14998, L500.96673, L500.75353 ####[facility] [id number] [place], [place] [address]Gx# [phone] CBC W/DIFFon 08-14-2020 BASO ABS 0.10 K/CU MM Normal [facility]0.2 [facility] Comment on above: Order Comment: Campu s: M Performed By: #### L 200.74305 ####[facility] [id number] [place], [place] [address]Xu# [phone] Basophils/100 WBC (Bld) 0.4 % Normal 0-2 [facility] Comment [facility]: Order Comment: Campu s: M Performed By: #### L 200.13476 ####[address] [address]Td# [phone] EOS ABS 0.40 K/CU MM Normal 0-0.5 [facility] Comment on above: Order Comment: Campu s: M Performed By: #### L 200.53746 ####[place] [address]Ph# [phone] Eosinophils/100 WBC (Bld) 3.7 % Normal 0-5 [facility] Comment on above: Order Comment: Campu s: M Performed By: #### L 200.39530 ####[address] [address]Zo# [phone] Erythrocyte distribution width (RBC) [Ratio] 15.9 % High 11-14.[address] [facility] Comment on above: Order Comment: Campu s: M Performed By: #### L 200.78114 ####[address] [address]Ym# [phone] Hematocrit (Bld) [Volume fraction] 27.9 % Low 35.0-47.[address] [facility] Comment on above: Order Comment: Campu s: M Performed By: #### L 200.41842 ####[facility] [id number] [place] [address]Xp# [phone] Hemoglobin (Bld) [Mass/Vol] 8.4 g/dL Low 11.5-15.[address] [facility] Comment on above: Order Comment: Campu s: M Performed By: #### L 200.86631 ####[facility] [id number] [place] [address]Ph# [phone] IMMATR GRAN ABS 0.20 K/CU MM Normal Less than 2 [facility] [place] Comment on above: Order Comment: Campu s: M Performed By: #### L 200.68936 ####[place] [address]Ph# [phone] IMMATURE GRAN % 2.1 % Normal Less than [address] [facility] Comment on above: Order Comment: Campu s: M Performed By: #### L 200.21637 ####[place] [address]Ph# [phone] Lymphocytes (Bld) [#/Vol] 1.20 K/CU MM Normal 0.9-4.[address] [facility] Comment on above: Order Comment: Campu s: M Performed By: #### L 200.25708 ####[place] [address]Ph# [phone] Lymphocytes/100 WBC (Bld) 10.7 % Low 20-[address] [facility] Comment on above: Order Comment: Campu s: M Performed By: #### L 200.23753 ####[facility] [id number] [place], [place] [address]Ph# [phone] MCHC (RBC) [Mass/Vol] 30.1 g/dL Low 32.0-36.0 [facility] [place] Comment on above: Order Comment: Campu s: M Performed By: #### L 200.58965 ####[facility] [id number] [place], [place] [address]Ph# [phone] MCV (RBC) [Entitic vol] 97.9 fL Normal 80.0-99.0 [facility] Comment on above: Order Comment: Campu s: M Performed By: #### L 200.89948 ####[facility] [id number] [place], [place] [address]Rq# [phone] MONO ABS 0.70 K/CU MM Normal 0.1-1.[address] [facility] Comment on above: Order Comment: Campu s: M Performed By: #### L 200.68430 ####[facility] [id number] [place], [place] [address]Hf# [phone] Monocytes/100 WBC (Bld) 5.9 % Normal 2-10 [facility] Comment on above: Order Comment: Campu s: M Performed By: #### L 200.62396 ####[place] [address]Ph# [phone] NEUTROPHIL ABS 8.70 K/CU MM High 2.0-8.[address] [facility] Comment on above: Order Comment: Campu s: M Performed By: #### L 200.49306 ####[facility] [id number] [place], [place] [address]Ph# [phone] Neutrophils/100 WBC (Bld) 77.2 % High 45-75 [facility] Comment on above: Order Comment: Campu s: M Performed By: #### L 200.86556 ####[facility] [id number] [place], [place] [address]Ph# [phone] Nucleated RBC/100 WBC (Bld) [Ratio] 0.0 % Normal Less than [address] [facility] Comment on above: Order Comment: Campu s: M Performed By: #### L 200.47096 ####[facility] [id number] [place] [address]Sy# [phone] Platelet mean volume (Bld) [Entitic vol] 11.0 fL Normal 9.4-12.[address] [facility] Comment on above: Order Comment: Campu s: M Performed By: #### L 200.64296 ####[facility] [id number] [place], [place] [address]Ph# [phone] Platelets (Bld) [#/Vol] 259 K/CU MM Normal 150-450 [facility] [place] Comment on above: Order Comment: Campu s: M Performed By: #### L 200.47093 ####[facility] [id number] [place], [place] [address]Jt# [phone] RBC (Bld) [#/Vol] 2.85 M/CU MM Low 3.90-5.30 [facility] [place] Comment on above: Order Comment: Campu s: M Performed By: #### L 200.10013 ####[facility] [id number] [place], [place] [address]Lf# [phone] WBC (Bld) [#/Vol] 11.2 K/CUMM High 4.5-11.0 [facility] Comment on above: Order Comment: Campu s: M Performed By: #### L 200.34353 ####[facility] [id number] [place] [address]Jw# [phone] GFR ESTon 08-14-2020 IF AMER Greater than [address] [facility] [place] Comment on above: Order Comment: Campu s: M Performed By: #### L 500.41691, L500.85670, L500.00498 ####[facility] [id number] [place], [place] [address]Rj# [phone] IF non-AFR AMER Greater than [address] [facility] [place] Comment on above: Order Comment: Campu s: M Performed By: #### L 500.81655, L500.41906, L500.15088 ####[facility] [id number] [place], [place] [address]Fc# [phone] MAGNESIUMon 08-14-2020 Magnesium [Mass/Vol] 1.6 MG/CL Normal 1.6-2.6 [facility] Comment [facility]: Order Comment: Campu s: M Performed By: #### L 500.25137, L500.34188, L500.97920 ####[facility] [id number] [place] [address]Dl# [phone] OTPNon 08-14-2020 OT Progress Note Normal [facility] OTPN Occupational Therapy Inpatient Treatment Note Medical Diagnosis: Acute hypoxemic respiratory failure, Syncope, pneumonia, hypothyroidism OCCUPATIONAL PROFILE AND HISTORY Demographics: Age: 70Y Gender: Female Primary Language: [place] Preferred Language: [place] Referring Service/Team: Cardiology Rehabilitation Precautions/Restrictio ns: NG [...] TO ANSWER. THEN BECAME NONSENSICAL AGAIN NURSE GLORIA ASSISTED W/ TRANSFER TO CHAIR Activities of [...] and G-Code Modifier = CN Functional Mobility: [facility] PATIENT NAME: ANDRE BLANCA [facility] Dr. Andrea MEDICAL REC #: [id number] [place] [address] ADMIT DATE: 07/27/20 SERVICE DATE: 08/14/20 Occupational Therapy Progress Note ATTENDING DAMIAN: Marta Horvath DO Bed Mobility: All bed mobility including supine to sit, rolling, scooting. requiring moderate assistance. 2 persons, mod v/cs for nikos mojica pushing on eob w/ sitting SBA UNSUPPORTED SITITLINDSAY NELSONE FOR APPROX 10 MINS, NOTED PATIENT COUGHING UP SECRETIONS ONCE SITTING Transfers: Patient transferred bed to/from chair requiring moderate assistance of 2 persons. No equipment was used. 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 Andrea MEDICAL REC #: [id number] [place] [address] ADMIT DATE: 07/27/20 SERVICE DATE: 08/14/20 Occupational [...] contact the Acute Therapy Department at extension [phone] Communication to Nursing: No updates at this time. Location of Patient at End of Therapy Session: In chair, call light within reach Services: Total Billed: 38 minutes (Timed: 38, Untimed: 0) 23.00 Timed: [92332] ADL-HOME MANAGEMENT EA 15 MIN 15.00 Timed: [46985] THERAPEUTIC EXERCISE EA 15 MIN 0.00 Untimed: [] OT Treatment General ORDER Signed by: ROSEANNA LLAMAS 08/14/2020 14:51:22 - CoSigned By: KASEY MEZA 08/14/2020 3:42:39 PM [facility] PATIENT NAME: ANDRE BLANCA Dr. Andrea MEDICAL REC #: [id number] [place] [address] ADMIT DATE: 07/27/20 SERVICE DATE: 08/14/20 Occupational Therapy Progress Note ATTENDING PHY: Marta Horvath DO Normal [facility] 08-14-2020 [facility] Patient Name: ANDRE BLANCA [place] [address] Date of : [address] [place], [place] [address] Unit Number: [id number] Progress Note-Hospitalist Patient Status: ADM IN Attending [...] noted Diagnostic Data: Lab 24hr (CBC/BMP Fishbone) 08/14/20 0451: [Embedded [...] is afebrile. Pulmonology is following On Tue :30p Aug 11, 2020 DELIA ADAM wrote Patient [...] interstitial and alveolar opacities present bilaterally On Mon 1:21p Aug 09, 2020 DELIA ADAM wrote [...] to repeat chest x-ray in a.m. On Wed 2:21p Aug 12, 2020 DELIA ADAM wrote Patient continues to have high oxygen needs. Most recent chest x-ray was read as no significant interval change. Interstitial and alveolar opacities remain bilaterally On Tue 1:30p Aug 11, 2020 DELIA ADAM wrote Likely secondary to recent pneumonia. Patient still requiring high flow nasal cannula, wean O2 as tolerated, pulmonary critical care has been following and managing On Mon 12:30p Aug 10, 2020 DELIA ADAM wrote Patient enoc on high flow nasal cannula, wean O2 as tolerated. Chest x-ray showing findings concerning for pneumonia for which patient has been receiving treatment with Unasyn. Pulmonary critical care following On Sun 1:21p Aug 09, 2020 DELIA ADAM wrote Patient remains on high flow, chest x-ray showing findings concerning for pneumonia On Sat 3:42p Aug 08, 2020 DELIA ADAM wrote Possibly secondary to recent pneumonia. Chest x-ray showing bilateral pulmonary infiltrates 3. TASHI (acute kidney injury) Creatinine 0.61 on last check TASHI thought to be resolved On Fariha Aug 13, 2020 DELIA ADAM wrote Creatinine [...] 65%. Patient was given fluids On Sun Aug 09, 2020 DELIA ADAM wrote No current [...] potassium level from 3.4 yesterday On Fariha Aug 13, 2020 DELIA ADAM wrote Potassium level 3.4, patient was ordered replacement. On Mon:Aug 12, 2020 DELIA ADAM wrote Potassium level low today at 3.3. Patient was ordered replacement, magnesium level was checked and was 1.6 today and was also supplemented On e :Aug 11, 2020 DELIA ADAM wrote Potassium level low today at 3.4 patient was ordered replacement, recheck in a.m., check magnesium level in a.m. On Mon 12:Aug 10, 2020 DLEIA ADAM wrote Potassium level somewhat better overall currently 3.5. Replace as needed On Sun :Aug 09, 2020 DELIA ADAM wrote Improvement in potassium level overall to 3.8 On Sat :p Aug 08, 2020 DELIA ADAM wrote Potassium level low at 3.4 today. Patient was ordered IV potassium replaced, check magnesium level in the a.m. 6. Hypernatremia Sodium level continues to improve and is down to 139 on increased free water flushes On Fariha Aug 13, 2020 DELIA ADAM wrote Some continued improvement sodium level down to 144 today, continue with free water flushes On Wed 2:21p Aug 12, 2020 DELIA ADAM wrote Some improvement in sodium level today down to 149 on increased free water flushes down, continue with free water flushes and continue to monitor sodium level On Tue 1:30p Aug 11, 2020 DELIA ADAM wrote Sodium level 153 again today. Patient's free water flushes are being increased, follow sodium level in a.m. On Mon 12:30p Aug 10, 2020 DELIA ADAM wrote Sodium level [...] Time Delia Adam MD Verified/Reviewed by 08/14/20 1600 [facility] Progress Note-Hospitalist [facility] PROG.Rocael 08-14-2020 PROG.[facility] Patient Name: ANDRE BLANCA [address] Date of : [address] [place] [id number] Unit Number: [id number] Progress Note-Jive Developer Patient Status: ADM IN Attending Doctor: Marta Horvath DO Service Date: 08/14/20 0725 Progress Note-Jive Developer Subjective Subjective: Patient in bed. Patient seems [...] 08/04 2100 AC 08/13 (LYRICA CAP) TUBE 2156 Quetiapine Fumarate 100 MG QHS 08/08 2200 AC 08/13 (SEROQUEL TAB) TUBE 2154 Risperidone 3 MG BID 08/09 2100 AC 08/13 (RISPERDAL TAB) TUBE 2156 Sodium Chloride 4 ML QIDRT 08/10 1230 [...] (60 - 80 MG/DL) 174 H 08/11 05 Lactate (0.40 - 2.00 MMOL/L) 0.94 08/11 05 Patient Equipment HIGH FLOW CANNULA 08/11 05 Liter Flow (L/M) 45.00 08/11 05 FiO2 % (%) 52 08/11 05 Lab Results: Lab 24hr (CBC/BMP Luz) 08/14/20 0451: [Embedded Image Not Available] Anion [...] CVA, and Former Tobacco Abuse presented to [facility] emergency department on 07/27 secondary to Syncope [...] 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 Patient spent time at the [facility] according to son, that is the facility that she met her . * History of multiple falls in the past. * F/E/N: HL fluids/replete lytes as needed /c/w TFs * GI/DVT Prophylaxis: PO nexium/Lovenox * CODE STATUS: DNR [employer] arrest, discussed with son Giana Blanca, area code [phone]. Did also discuss if patient is functionally [...] Time Jayesh Loera MD Verified/Reviewed by 08/14/20 6635 [facility] Progress Note-Jive Developer [facility] PTPNon 08-14-2020 PT Progress Note [facility] PTPN Physical Therapy Inpatient Treatment Note Medical Diagnosis: 1. Acute hypoxemic respiratory failure 2. Syncope 3. Hypothyroidism multiple rib fxs Demographics: Age: 70Y Gender: Female Primary Language: [place] Preferred Language: [place] Rehabilitation Precautions/Restrictio ns: NG tube, 4-point restraints, [...] G-Code Modifier = CK Vital Signs: Vitals: [facility] PATIENT NAME: ANDRE BLANCA [facility] Dr. Andrea MEDICAL REC #: [id number] [place] [address] ADMIT DATE: 07/27/20 SERVICE DATE: 08/14/20 Physical Therapy Progress Note ATTENDING GIRISHY: Marta Horvath DO Oxygen Saturation: 88 % Interventions: Therapeutic Activities: Functional transfers and standing balance for BSC use as noted. Seated HEP x10 w/ cues for completion: AP, LAQ, lynning, GS. Pain Reassessment: No significant change in [...] contact the Acute Therapy Department at extension [phone] Location of Patient at End of Therapy Session: In chair, chair alarm in place, call light within reach [facility] PATIENT NAME: ANDRE BLANCA [facility] Dr. Andrea MEDICAL REC #: [id number] [place] [address] ADMIT DATE: 07/27/20 SERVICE DATE: 08/14/20 Physical Therapy Progress Note ATTENDING DAMIAN: Marta Horvath DO Services: Total Billed: 25 minutes (Timed: 25, Untimed: 0) 25.00 Timed: [74965] THER ACTIVITIES / 15 MIN 0.00 Untimed: [] PT Treatment- General ORDER Signed by: Michel Cooper PTA 08/14/2020 16:20:50 - CoSigned By: SINDHU MONTANEZ PT 08/14/2020 5:28:16 PM [facility] PATIENT NAME: ANDRE BLANCA [facility] Dr. Andrea MEDICAL REC #: [id number] [place] [address] ADMIT DATE: 07/27/20 SERVICE DATE: 08/14/20 Physical Therapy Progress Note ATTENDING PHY: Marta Horvath DO Normal [facility] CBC W/DIFFon 08-13-2020 EOS ABS 0.55 K/CU MM High 0-0.[address] [facility] Comment on above: Order Comment: Campu s: M Performed By: #### L 200.27141 #### [facility] [address] [place] [address] Eosinophils/100 WBC (Bld) 5.0 % Normal 0-[address] [facility] Comment on above: Order Comment: Campu s: M Performed By: #### L 200.30959 #### [facility] [address] [place] [address] HYPO 2+ Normal [facility] Comment on above: Order Comment: Campu s: M Performed By: #### L 200.46640 #### [facility] [address] [place], [place] [address] Lymphocytes (Bld) [#/Vol] 0.99 K/CU MM Normal 0.9-4.[address] [facility] Comment on above: Order Comment: Campu s: M Performed By: #### L 200.61079 #### [facility] [address] [place], [place] [address] Lymphocytes/100 WBC (Bld) 9.0 % Low 20-[address] [facility] Comment on above: Order Comment: Campu s: M Performed By: #### L 200.99485 #### [facility] [place] [address] MONO ABS 0.22 K/CU MM Normal 0.1-1.[address] [facility] Comment on above: Order Comment: Campu s: M Performed By: #### L 200.19000 #### [facility] [address] [place] [address] Monocytes/100 WBC (Bld) 2.0 % Normal 2-10 [facility] Comment on above: Order Comment: Campu s: M Performed By: #### L 200.66849 #### [facility] [address] [place] [address] NEUTROPHIL ABS 9.24 K/CU MM High 2.0-8.[address] [facility] Comment on above: Order Comment: Campu s: M Performed By: #### L 200.57823 #### [facility] [address] [place] [address] Neutrophils/100 WBC (Bld) 84.0 % High 45-[address] [facility] Comment on above: Order Comment: Campu s: M Performed By: #### L 200.98636 #### [facility] [address] [place] [address] Platelets (Bld) [#/Vol] ADEQUATE Normal M [facility] Comment on above: Order Comment: Campu s: M Performed By: #### L 200.42644 #### [facility] [address] [place] [address] PLT MORPH LARGE FORMS NOTED Normal [facility] Comment on above: Order Comment: Campu s: M Performed By: #### L 200.04580 #### [facility] [address] [place] [address] POLY 1+ Normal [facility] Comment on above: Order Comment: Campu s: M Performed By: #### L 200.05123 #### [facility] [address] [place] [address] Erythrocyte distribution width (RBC) [Ratio] 15.9 % High 11-14.[address] [facility] Comment on above: Order Comment: Campu s: M Performed By: #### L 200.28145 #### [facility] [address] [place] [address] Hematocrit (Bld) [Volume fraction] 27.0 % Low 35.0-47.[address] [facility] Comment on above: Order Comment: Campu s: M Performed By: #### L 200.35036 #### [facility] [address] [place] [address] Hemoglobin (Bld) [Mass/Vol] 8.2 g/dL Low 11.5-15.[address] [facility] Comment on above: Order Comment: Campu s: M Performed By: #### L 200.78943 #### [facility] [address] [place] [address] MCHC (RBC) [Mass/Vol] 30.4 g/dL Low 32.0-36.0 [facility] Comment on above: Order Comment: Campu s: M Performed By: #### L 200.63503 #### [facility] [address] [place] [address] MCV (RBC) [Entitic vol] 98.9 fL Normal 80.0-99.0 [facility] Comment on above: Order Comment: Campu s: M Performed By: #### L 200.98268 #### [facility] [address] [place] [address] Nucleated RBC/100 WBC (Bld) [Ratio] 0.0 % Normal Less than [address] [facility] Comment on above: Order Comment: Campu s: M Performed By: #### L 200.10316 #### [facility] [address] [place] [address] Platelet mean volume (Bld) [Entitic vol] 11.5 fL Normal 9.4-12.[address] [facility] Comment on above: Order Comment: Campu s: M Performed By: #### L 200.82153 #### [facility] [address] [place] [address] Platelets (Bld) [#/Vol] 195 K/CU MM Normal 150-[address] [facility] Comment on above: Order Comment: Campu s: M Performed By: #### L 200.52329 #### [facility] [address] [place] [address] RBC (Bld) [#/Vol] 2.73 M/CU MM Low 3.90-5.[address] [facility] Comment on above: Order Comment: Campu s: M Performed By: #### L 200.17876 #### [facility] [address] [place] [address] WBC (Bld) [#/Vol] 11.0 K/CUMM Normal 4.5-11.[address] [facility] Comment on above: Order Comment: Campu s: M Performed By: #### L 200.22389 #### [facility] [address] [place] [address] CMPon 08-13-2020 Albumin [Mass/Vol] 1.8 g/dL Low 3.2-5.[address] [facility] Comment on above: Order Comment: Campu s: M Performed By: #### L 500.71366, L500.04451 ####[facility] [id number] [place], [place] [address]He# [phone] Albumin/Globulin [Mass ratio] 0.5 {ratio} Low 0.8-2.[address] [facility] Comment on above: Order Comment: Campu s: M Performed By: #### L 500.60257, L500.04238 ####[facility] [id number] [place], [place] [address]Qv# [phone] ALK PHOS 170 U/L High 45-[address] [facility] Comment on above: Order Comment: Campu s: M Performed By: #### L 500.97577, L500.10531 ####[facility] [id number] [place], [place] [address]Kb# [phone] ALT [Catalytic activity/Vol] 29 U/L Normal 13-[address] [facility] Comment on above: Order Comment: Campu s: M Result Comment: RESU LTS MAY BE FALSELY DEPRESSED AFTER THE ADMINISTRATION OF SULFASALAZINE AND/OR SULFAPYRIDINE. Performed By: #### L 500.93186, L500.92066 ####[facility] [id number] [place], [place] [address]Hn# [phone] Anion gap [Moles/Vol] 3 mmol/L Low 5-16 [facility] Comment on above: Order Comment: Campu s: M Performed By: #### L 500.65467, L500.55199 ####[facility] NCPJQXOQBJ6068 [place], [place] [address]Pi# [phone] BILI TOTAL 0.30 MG/DL Normal 0.2-1.[address] [facility] Comment on above: Order Comment: Campu s: M Performed By: #### L 500.04103, L500.06308 ####[facility] UFLPWPOPXG9702 [place], [place] [address]Vl# [phone] Calcium [Mass/Vol] 8.0 mg/dL Low 8.5-10.[address] [facility] Comment on above: Order Comment: Campu s: M Result Comment: NOTE NEW NORMAL RANGE DUE TO REAGENT CHANGE Performed By: #### L 500.89834, L500.41436 ####[facility] OKLEHJZRDI4216 [place], [place] [address]Ra# [phone] Chloride [Moles/Vol] 102 mmol/L Normal 98-107 [facility] Comment on above: Order Comment: Campu s: M Performed By: #### L 500.19605, L500.31040 ####[facility] GDNLYHOKQU8732 [place], [place] [address]Wf# [phone] CO2 [Moles/Vol] 40.0 mmol/L High 21-[address] [facility] Comment on above: Order Comment: Campu s: M Performed By: #### L 500.77001, L500.51521 ####[facility] ZIYETYZZVW5044 [place], [place] [address]El# [phone] Creatinine [Mass/Vol] 0.56 mg/dL Normal 0.510-0.950 [facility] Comment on above: Order Comment: Campu s: M Result Comment: Geraldine ents receiving either N-Acetylcysteine (NAC) or Metamizole prior to venipuncture, may have falsely depressed results. Performed By: #### L 500.15034, L500.56230 ####[facility] FCCHSGLUKN4517 [place], [place] [address]Go# [phone] Globulin (S) [Mass/Vol] 3.4 g/dL Normal 2.2-4.2 [facility] Comment on above: Order Comment: Campu s: M Performed By: #### L 500.82440, L500.73215 ####[facility] ZFTEAMTFAR3659 [place], [place] [address]Eq# [phone] Glucose [Mass/Vol] 185 mg/dL High 70-[address] [facility] Comment on above: Order Comment: Campu s: M Result Comment: 70-1 00- Normal Fasting; 100-125 Impaired Fasting; greater than 126 on more than one result- Diabetes. ADA guidelines. Results may be falsely elevated after the administration of Sulfapyridine. Results may be falsely depressed after the administration of Sulfasalazine. Performed By: #### L 500.66432, L500.97251 ####[facility] IJAJZOIXQI2551 [place], [place] [address]Td# [phone] Potassium [Moles/Vol] 3.4 mmol/L Low 3.5-5.1 [facility] [place] Comment on above: Order Comment: Campu s: M Performed By: #### L 500.99653, L500.74834 ####[facility] TTXNKKOSNE3013 [place], [place] [address]So# [phone] Protein [Mass/Vol] 5.2 g/dL Low 6.0-8.[address] [facility] Comment on above: Order Comment: Campu s: M Performed By: #### L 500.06786, L500.27690 ####[facility] UIPSYSAPLH6263 [place], [place] [address]Xb# [phone] SGOT (AST) 43 U/L High 8-[address] [facility] Comment on above: Order Comment: Campu s: M Result Comment: RESU LTS MAY BE FALSELY DEPRESSED AFTER THE ADMINISTRATION OF SULFASALAZINE AND/OR SULFAPYRIDINE. Performed By: #### L 500.34999, L500.59339 ####[facility] LBIPSJQXKX6605 [place], [place] [address]Gi# [phone] Sodium [Moles/Vol] 144 mmol/L Normal 136-[address] [facility] Comment on above: Order Comment: Campu s: M Performed By: #### L 500.97784, L500.03064 ####[facility] GQARRSHKVB1392 [place], [place] [address]Cj# [phone] Urea nitrogen [Mass/Vol] 11 mg/dL Normal 7-[address] [facility] Comment on above: Order Comment: Campu s: M Performed By: #### L 500.41631, L500.20404 ####[facility] [id number] [place] [address]Ok# [phone] Urea nitrogen/Creatinine [Mass ratio] 20 mg/mg Normal 15-[address] [facility] Comment on above: Order Comment: Campu s: M Performed By: #### L 500.85283, L500.44237 ####[facility] GSARVJTPNC2281 [place], [place] [address]Qb# [phone] GFR ESTon 08-13-2020 IF AMER Greater than 60 Normal [facility] Comment on above: Order Comment: Campu s: M Performed By: #### L 500.48889, L500.65762 ####[facility] AEHKOGZVSS6373 [place], [place] [address]Zi# [phone] IF non-AFR AMER Greater than 60 Normal [facility] Comment on above: Order Comment: Campu s: M Performed By: #### L 500.85424, L500.76747 ####[facility] [id number] [place] [address]Pg# [phone] OTPNon 08-13-2020 OT Progress Note Normal [facility] OTPN Occupational Therapy Inpatient Treatment Note Medical Diagnosis: Acute hypoxemic respiratory failure, Syncope, pneumonia, hypothyroidism OCCUPATIONAL PROFILE AND HISTORY Demographics: Age: 70Y Gender: Female Primary Language: [place] Preferred Language: [place] Referring Service/Team: Cardiology Rehabilitation Precautions/Restrictio ns: NG [...] CN Functional Mobility: Bed Mobility: Not assessed. [facility] PATIENT NAME: ANDRE BLANCA [facility] Dr. Andrea MEDICAL REC #: [id number] [place] [address] ADMIT DATE: 07/27/20 SERVICE DATE: 08/13/20 Occupational [...] regarding this service, please contact the Acute [facility] PATIENT NAME: ANDRE BLANCA Dr. Andrea MEDICAL REC #: [id number] [place] [address] ADMIT DATE: 07/27/20 SERVICE DATE: 08/13/20 Occupational Therapy Progress Note ATTENDING PHY: Marta Horvath DO Therapy Department at extension [phone] Communication to Nursing: No updates at this time. Location of Patient at End of Therapy Session: In chair, call light within reach Services: Total Billed: 13 minutes (Timed: 13, Untimed: 0) 13.00 Timed: [22045] THERAPEUTIC EXERCISE EA 15 MIN 0.00 Untimed: [] OT Treatment General ORDER Signed by: ROSEANNA LLAMAS 08/13/2020 13:57:25 - CoSigned By: Cayla Rios OT 08/13/2020 4:08:33 PM [facility] PATIENT NAME: ANDRE BLANCA Dr. Andrea MEDICAL REC #: [id number] [place] [address] ADMIT DATE: 07/27/20 SERVICE DATE: 08/13/20 Occupational Therapy Progress Note ATTENDING PHY: Marta Horvath DO Normal [facility]2020 [facility] Patient Name: ANDRE BLANCA [place] [address] Date of : [address] [place], [place] [address] Unit Number: [id number] Progress Note-Hospitalist Patient Status: ADM IN Attending [...] confusion noted Diagnostic Data: Lab 24hr (CBC[facility] 08/13/20 0500: [Embedded Image Not Available] Anion [...] to repeat chest x-ray in a.m. On MonAug 12, 2020 DELIA ADAM wrote Patient continues [...] currently 3.5. Replace as needed On Sun 1:21p Aug 09, 2020 DELIA ADAM wrote Improvement in potassium level overall to 3.8 On Sat 3:42p Aug 08, 2020 DELIA ADAM wrote Potassium level low at 3.4 today. Patient was ordered IV potassium replaced, check magnesium level in the a.m. 6. Hypernatremia Some continued improvement sodium level down to 144 today, continue with free water flushes On Wed 2:21Aug 12, 2020 DELIA ADAM wrote Some improvement in sodium level today down to 149 on increased free water flushes down, continue with free water flushes and continue to monitor sodium level On Tue 1:30Aug 11, 2020 DELIA ADAM wrote Sodium level 153 again today. Patient's free water flushes are being increased, follow sodium level in a.m. On Mon 12:30Aug 10, 2020 DELIA ADAM wrote Sodium level slightly worse today at 153. Patient on free water flushes with tube feeds. Will increase free water flushes On Sun 1:Aug 09, 2020 DELIA ADAM wrote Sodium level 151 on last check and was increasing. Adding free water with tube feeds Disclaimer This dictation was created using voice recognition software. Phonetic and/or minor grammatical errors may exist. eSign Date and Time Delia Adam MD Verified/Reviewed by 08/13/20 1130 [facility] Progress Note-Hospitalist [facility] PROG.Rocael 08-13-2020 PROG.ASHKAN [facility] Patient Name: ANDRE BLANCA [address] Date of : [address] [place] [address] Unit Number: [id number] Progress Note-Jive Developer Patient Status: ADM IN Attending Doctor: Marta Horvath DO Service Date: 08/13/20 0748 Progress Note-Jive Developer Subjective Subjective: Patient answering questions about self. Patient weaned off Precedex yesterday. Patient remains on high flow oxygen. Objective Vital Signs: Vital Signs (Last) Result Date Time Pulse Ox 92 08/13 06 B/P 148/68 08/13 06 B/P Mean 98 08/13 600 O2 Delivery HIGH FLOW NC 08/13 600 O2 Flow Rate 45/50 08/13 600 Pulse 96 08/13 06 Temp 98.4 08/13 0200 Resp 14 08/13 [...] 08/11 1400 AC 08/12 (ROBITUSSIN 200MG/10 TUBE 210 ML ORAL LIQ) Haloperidol Lactate 2 MG [...] 210 LIQUID UDC) Melatonin 10 MG QHS 08/090 AC 08/12 (MELATONIN TAB) TUBE 210 Menthol/Methyl 1 APPL BIDPRN PRN 07/28 0030 AC 08/11 Salicylate TP 1126 (MIHIR ALVAREZ T.CREAM) Ondansetron HCl 4 MG BIDPRN PRN 08/04 193 AC (ZOFRAN TAB) TUBE Ondansetron HCl 4 MG Q6HPRN PRN 07/27 2100 AC 08/04 (ZOFRAN VIAL) IV 212 Polyethylene Glycol 17 GM QDAY 08/11 1200 AC 08/12 (MIRALAX PACKT) TUBE 0851 Pravastatin Sodium 40 MG QHS 08/040 AC 08/12 (PRAVACHOL TAB) TUBE 210 Pregabalin 150 MG BID 08/04 2100 AC 08/12 (LYRICA CAP) TUBE 210 Quetiapine Fumarate 100 MG QHS 08/08 2200 AC 08/12 (SEROQUEL TAB) TUBE 210 Risperidone 3 MG BID 08/09 2100 AC 08/12 (RISPERDAL TAB) TUBE 2102 Sodium Chloride 4 ML QIDRT 08/10 1230 [...] CVA, and Former Tobacco Abuse presented to [facility] emergency department on 07/27 secondary to Syncope [...] 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 Patient spent time at the [facility] according to son, that is the facility [...] Jayesh Loera MD Verified/Reviewed by 08/13/20 0750 [facility] Progress Note-Jive Developer [facility] PROG.PSYCHon 08-13-2020 PROG.PSYCH [facility] Patient Name: ANDRE BLANCA [address] Date of : [address] [place], [place] [address] Unit Number: [id number] Progress Note-Psych Patient Status: DIS IN Attending Doctor: Marta Horvath DO Service Date: 08/13/20 0812 Progress Note - PSYCH Subjective: (2 ROS minimum) She says she is happy and anxious and worried. She says she slept through most of the night. Objective: General appearance is alert. She is oriented to person, 2020, and says she is in [place] in a medical facility. She feels happy, [...] 193 AC 08/13 (TYLENOL ORAL LIQ) TUBE 0332 [...] 210 LIQUID UDC) Melatonin 10 MG QHS 08/090 AC 08/12 (MELATONIN TAB) TUBE 210 Menthol/Methyl 1 APPL [...] 08/04 2200 AC 08/12 (PRAVACHOL TAB) TUBE 2103 Pregabalin 150 MG BID 08/04 2100 AC 08/12 (LYRICA CAP) TUBE 2102 Quetiapine Fumarate 100 MG QHS 08/080 AC 08/12 (SEROQUEL TAB) TUBE 210 Risperidone 3 MG BID 08/09 2100 AC 08/12 (RISPERDAL TAB) TUBE 2102 Sodium Chloride 4 ML QIDRT 08/10 1230 [...] Milind Gates MD Verified/Reviewed by 08/24/20 0743 [facility] Progress Note-Psych [facility] PTPNon 08-13-2020 PT Progress Note [facility] PTPN Physical Therapy Inpatient Treatment Note Medical Diagnosis: 1. Acute hypoxemic respiratory failure 2. Syncope 3. Hypothyroidism multiple rib fxs Demographics: Age: 70Y Gender: Female Primary Language: [place] Preferred Language: [place] Rehabilitation Precautions/Restrictio ns: NG tube, 4-point restraints, [...] Hospital Room: A lot of help needed [facility] PATIENT NAME: ANDRE BLANCA [facility] Dr. Andrea MEDICAL REC #: [id number] [place] [address] ADMIT DATE: 07/27/20 SERVICE DATE: 08/13/20 Physical [...] contact the Acute Therapy Department at extension [phone] [facility] MEDICAL REC #: [id number] [place] [address] ADMIT DATE: 07/27/20 SERVICE DATE: 08/13/20 Physical Therapy Progress Note ATTENDING PHY: Marta Horvath DO Location of Patient at End of Therapy Session: In chair, chair alarm in place, call light within reach Services: Total Billed: 30 minutes (Timed: 30, Untimed: 0) 30.00 Timed: [35596] GAIT TRAIN EA 15 MIN 0.00 Untimed: [] PT Treatment- General ORDER Signed by: Michel Cooper PTA 08/13/2020 13:26:12 - CoSigned By: Ioana Holden 08/13/2020 3:49:29 PM [facility] PATIENT NAME: ANDRE BLANCA [facility] Dr. Andrea MEDICAL REC #: [id number] [place] [address] ADMIT DATE: 07/27/20 SERVICE DATE: 08/13/20 Physical Therapy Progress Note ATTENDING PHY: Marta Horvath DO Normal [facility] 08-12-2020 Anion gap [Moles/Vol] 3 mmol/L Low 5-16 [facility] Comment on above: Order Comment: Maciel Rubio Performed By: #### L 500.34788, L500.07342, L500.22593, L500.11860 ####[facility] UBOAQMIVWY7455 [place], [place] [address]Ag# [phone] Calcium [Mass/Vol] 7.9 mg/dL Low 8.5-10.[address] [facility] Comment on above: Order Comment: Campu s: M Result Comment: NOTE NEW NORMAL RANGE DUE TO REAGENT CHANGE Performed By: #### L 500.86970, L500.17329, L500.36771, L500.46207 ####[facility] [id number] [place], [place] [address]Kw# [phone] Chloride [Moles/Vol] 110 mmol/L High 98-107 [facility] Comment on above: Order Comment: Campu s: M Performed By: #### L 500.46027, L500.78195, L500.49024, L500.92134 ####[facility] MWAYKOOWHY1258 [place], [place] [address]Uv# [phone] CO2 [Moles/Vol] 36.0 mmol/L High 21-[address] [facility] Comment on above: Order Comment: Campu s: M Performed By: #### L 500.56850, L500.51741, L500.42489, L500.17232 ####[facility] LWFGSATAME3584 [place], [place] [address]Qi# [phone] Creatinine [Mass/Vol] 0.59 mg/dL Normal 0.510-0.950 [facility] Comment on above: Order Comment: Campu s: M Result Comment: Geraldine ents receiving either N-Acetylcysteine (NAC) or Metamizole prior to venipuncture, may have falsely depressed results. Performed By: #### L 500.41855, L500.01376, L500.61360, L500.41897 ####[facility] TZWWNTAHHR2269 [place], [place] [address]Zz# [phone] Glucose [Mass/Vol] 163 mg/dL High 70-[address] [facility] Comment on above: Order Comment: Campu s: M Result Comment: 70-1 00- Normal Fasting; 100-125 Impaired Fasting; greater than 126 on more than one result- Diabetes. ADA guidelines. Results may be falsely elevated after the administration of Sulfapyridine. Results may be falsely depressed after the administration of Sulfasalazine. Performed By: #### L 500.26272, L500.32298, L500.84014, L500.17010 ####[facility] HWOPIWOKPY9134 [place], [place] [address]Vm# [phone] Potassium [Moles/Vol] 3.3 mmol/L Low 3.5-5.1 [facility] Comment on above: Order Comment: Campu s: M Performed By: #### L 500.23053, L500.94760, L500.84712, L500.68944 ####[facility] RWOZSFQSWG6542 [place], [place] [address]Yk# [phone] Sodium [Moles/Vol] 149 mmol/L High 136-[address] [facility] Comment on above: Order Comment: Campu s: M Performed By: #### L 500.60004, L500.70660, L500.26234, L500.26938 ####[facility] DUPMWUDGPB3803 [place], [place] [address]Uh# [phone] Urea nitrogen [Mass/Vol] 13 mg/dL Normal 7-[address] [facility] Comment on above: Order Comment: Campu s: M Performed By: #### L 500.98181, L500.98706, L500.58148, L500.56240 ####[facility] CHFHETLRUN9293 [place], [place] [address]Pm# [phone] Urea nitrogen/Creatinine [Mass ratio] 22 mg/mg Normal 15-[address] [facility] Comment on above: Order Comment: Campu s: M Performed By: #### L 500.28930, L500.65524, L500.87590, L500.06550 ####[facility] BWOZXAEVJH9712 [place], [place] [address]Mf# [phone] CBC W/DIFFon 08-12-2020 BAND ABS 0.14 K/CU MM Normal [facility] [place] Comment on above: Order Comment: Campu s: M Performed By: #### L 200.47998 ####[facility] [id number] [place], [place] [address]Ph# [phone] Band form neutrophils/100 WBC (Bld) 1.0 % Normal 0-7 [facility] [place] Comment on above: Order Comment: Campu s: M Performed By: #### L 200.10466 ####[facility] KYRIOIFMCM[address] [place], [place] [address]Ph# [phone] EOS ABS 0.97 K/CU MM High 0-0.5 [facility] [place] Comment on above: Order Comment: Campu s: M Performed By: #### L 200.49987 ####[place] [address]Ph# [phone] Eosinophils/100 WBC (Bld) 7.0 % High 0-5 [facility] [place] Comment on above: Order Comment: Campu s: M Performed By: #### L 200.17648 ####[place] [address]Ph# [phone] HYPO 2+ Normal [facility] [place] Comment on above: Order Comment: Campu s: M Performed By: #### L 200.50666 ####[facility] HCQUIFJWUU[address] [place], [place] [address]Ph# [phone] Lymphocytes (Bld) [#/Vol] 0.83 K/CU MM Low 0.9-4.4 [facility] [place] Comment on above: Order Comment: Campu s: M Performed By: #### L 200.98425 ####[facility] [id number] [place], [place] [address]Ph# [phone] Lymphocytes/100 WBC (Bld) 6.0 % Low 20-40 [facility] [place] Comment on above: Order Comment: Campu s: M Performed By: #### L 200.01233 ####[facility] CSGZGHCRQK[address] [place] [address]Ef# [phone] META % 1.0 % Normal [facility] [place] Comment on above: Order Comment: Campu s: M Performed By: #### L 200.65939 ####[facility] [id number] [place] [address]Wo# [phone] META ABS 0.14 K/CU MM Normal [facility] Comment on above: Order Comment: Campu s: M Performed By: #### L 200.75643 ####[facility] [id number] [place], [place] [address]Ph# [phone] MONO ABS 0.28 K/CU MM Normal 0.1-1.1 [facility] [place] Comment on above: Order Comment: Campu s: M Performed By: #### L 200.49034 ####[place] [address]Ph# [phone] Monocytes/100 WBC (Bld) 2.0 % Normal 2-10 [facility] Comment on above: Order Comment: Campu s: M Performed By: #### L 200.18627 ####[facility] [id number] [place], [place] [address]Ph# [phone] MYELO ABS 0.28 K/CU MM Normal [facility] Comment on above: Order Comment: Campu s: M Performed By: #### L 200.84070 ####[facility] [id number] [place], [place] [address]Ph# [phone] MYELOCYTE % 2.0 % Normal [facility] [place] Comment on above: Order Comment: Campu s: M Performed By: #### L 200.12047 ####[facility] [id number] [place], [place] [address]Ph# [phone] NEUTROPHIL ABS 11.18 K/CU MM High 2.0-8.[address] [facility] Comment on above: Order Comment: Campu s: M Performed By: #### L 200.38890 ####[facility] [id number] [place] [address]Ap# [phone] Neutrophils/100 WBC (Bld) 81.0 % High 45-[address] [facility] Comment on above: Order Comment: Campu s: M Performed By: #### L 200.93866 ####[facility] KVLMJDHVDV3595 [place], [place] [address]Oh# [phone] Platelets (Bld) [#/Vol] ADEQUATE Normal [facility] Comment on above: Order Comment: Campu s: M Performed By: #### L 200.60437 ####[facility] [id number] [place] [address]Hp# [phone] PLT MORPH LARGE FORMS NOTED Normal [facility] Comment on above: Order Comment: Campu s: M Performed By: #### L 200.19280 ####[facility] [id number] [place] [address]Nv# [phone] POLY 1+ Normal [facility] Comment on above: Order Comment: Campu s: M Performed By: #### L 200.82353 ####[facility] [id number] [place] [address]Au# [phone] TOXIC GRAN PRESENT Normal [facility] Comment on above: Order Comment: Campu s: M Performed By: #### L 200.34476 ####[facility] FHCJYXTNWT4413 [place], [place] [address]Sx# [phone] Erythrocyte distribution width (RBC) [Ratio] 15.9 % High 11-14.[address] [facility] Comment on above: Order Comment: Campu s: M Performed By: #### L 200.92117 ####[facility] [id number] [place] [address]Vs# [phone] Hematocrit (Bld) [Volume fraction] 27.2 % Low 35.0-47.[address] [facility] Comment on above: Order Comment: Campu s: M Performed By: #### L 200.79359 ####[facility] SRDXGKSQKA[address] [place] [address]Js# [phone] Hemoglobin (Bld) [Mass/Vol] 8.3 g/dL Low 11.5-15.[address] [facility] Comment on above: Order Comment: Campu s: M Performed By: #### L 200.47230 ####[facility] [id number] [place] [address]Va# [phone] MCHC (RBC) [Mass/Vol] 30.5 g/dL Low 32.0-36.0 [facility] Comment on above: Order Comment: Campu s: M Performed By: #### L 200.17023 ####[facility] [id number] [place], [place] [address]Ph# [phone] MCV (RBC) [Entitic vol] 97.5 fL Normal 80.0-99.0 [facility] Comment on above: Order Comment: Campu s: M Performed By: #### L 200.04856 ####[facility] [id number] [place], [place] [address]Ph# [phone] Nucleated RBC/100 WBC (Bld) [Ratio] 0.1 % Normal Less than [address] [facility] Comment on above: Order Comment: Campu s: M Performed By: #### L 200.18106 ####[facility] [id number] [place] [address]Id# [phone] Platelet mean volume (Bld) [Entitic vol] 11.9 fL Normal 9.4-12.[address] [facility] Comment on above: Order Comment: Campu s: M Performed By: #### L 200.34084 ####[facility] [id number] [place] [address]Nw# [phone] Platelets (Bld) [#/Vol] 174 K/CU MM Normal 150-[address] [facility] Comment on above: Order Comment: Campu s: M Performed By: #### L 200.71739 ####[facility] [id number] [place], [place] [address]Ph# [phone] RBC (Bld) [#/Vol] 2.79 M/CU MM Low 3.90-5.[address] [facility] Comment on above: Order Comment: Abundiou s: M Performed By: #### L 200.01740 ####[facility] [id number] [place], [place] [address]Yr# [phone] WBC (Bld) [#/Vol] 13.8 K/CUMM High 4.5-11.[address] [facility] Comment on above: Order Comment: Campu s: M Performed By: #### L 200.38645 ####[facility] FKOSWHYAHJ6007 [place], [place] [address]Yl# [phone] CONS.PSYCHon 08-12-2020 CONS.PSYCH [facility] Patient Name: ANDRE BLANCA [address] [facility] Date of : [address] [place], [place] [address] Unit Number: [id number] CONSULTATION-PSYCH Patient Status: DIS IN Attending Doctor: Marta Horvath DO Service Date: 08/12/20841 CONSULTATION-PSYCH Referring Physician Jayesh Loera MD Consulted [...] She apparently has been going to the [place]. She has been sleeping poorly at [...] Resp 18 08/12 700 Temp 99.0 08/12 0530 Mental Status Exam This is a tired looking woman who is pleasant and cooperative and answers questions as well as she can. Physical strength has been decreased. She is oriented to person but says it is September 1927 and she is in [place]. At times in the hospital she has [...] GASTON URIBE on 10/24/18 1315 Last Action: Reviewed on 08/04/201617 by GLORIA [...] COSME GARCIA on 02/22/19 1613 Last Action: Reviewed on 08/04/201617 by GLORIA [...] TUBE 0852 Quetiapine Fumarate 100 MG QHS 08/080 AC 08/11 (SEROQUEL TAB) TUBE 210 Risperidone [...] her. She has a son up in [place] who visits once a month. She denies [...] Milind Gates MD Verified/Reviewed by 08/24/20 0743 [facility] CONSULTATION-PSYCH [facility] GFR ESTon 08-12-2020 IF AMER Greater than 60 [facility] Comment on above: Order Comment: Maciel joe: M Performed By: #### L 500.41565, L500.59168, L500.46792, L500.75504 ####[facility] [id number] [place], [place] [address]Hr# [phone] IF non-AFR AMER Greater than 60 [facility] Comment on above: Order Comment: Campu s: M Performed By: #### L 500.81068, L500.65004, L500.12173, L500.30327 ####[facility] [id number] [place], [place] [address]Yx# [phone] IONIZED CAon 08-12-2020 IONIZED CA 1.03 MMOL/L Low 1.16-1.[address] [facility] Comment on above: Order Comment: Campu s: M Performed By: #### L 200.80603 #### [facility] [address] [place] [address] MAGNESIUMon 08-12-2020 Magnesium [Mass/Vol] 1.6 MG/CL Normal 1.6-2.6 [facility] Comment on above: Order Comment: Campu s: M Performed By: #### L 500.43843, L500.90869, L500.12702, L500.17230 ####[facility] [id number] [place], [place] [address]Dm# [phone] OTPNon 08-12-2020 OT Progress Note Normal [facility] OTPN Occupational Therapy Inpatient Missed Visit Note Location: Bedside. Attempted to visit patient for therapy, but was unable for the following reasons: Patient is unable to arouse. Clinical Reason sleeping in chair Return Plan: Will return as soon as possible for another attempt. If there are any questions regarding this service, please contact the Acute Therapy Department at extension [phone] Services: Total Billed: 0 minutes (Timed: 0, Untimed: 0) 0.00 Untimed: [] OT Treatment General ORDER Signed by: SIMONA LLAMAS/Asuncion 08/12/2020 14:07:10 - CoSigned By: VASHTI Montejo OTR/Asuncion 08/12/2020 3:55:22 PM [facility] PATIENT NAME: ANDRE BLANCA [facility] Dr. Andrea MEDICAL REC #: [id number] [place] [address] ADMIT DATE: 07/27/20 SERVICE DATE: 08/12/20 Occupational Therapy Progress Note ATTENDING PHY: Marta Horvath DO Normal [facility] PHOSon 08-12-2020 Phosphate [Mass/Vol] 2.50 mg/dL Normal 2.5-4.9 [facility] Comment on above: Order Comment: Abundiou s: M Result Comment: Elev ated m-protein (paraprotein) levels in the serum may be exhibited in patients with monoclonal gammopathies, causing falsely elevated inorganic phosphorus results. Performed By: #### L 500.48328, L500.98031, L500.05475, L500.94285 ####[facility] [id number] [place], [place] [address]Fh# [phone] PROG [facility] 08-12-2020 PROG [facility] Patient Name: ANDRE BLANCA [facility] Date of : [address] [place], [place] [address] Unit Number: [id number] Progress Note-Hospitalist Patient Status: ADM IN Attending Doctor: Marta Horvath DO Service Date: 08/12/20 1417 See Addendum Chief Complaint Chief Complaint Syncope [...] noted Diagnostic Data: Lab 24hr (CBC/BMP Fishbone) 08/12/20 040: Ionized Calcium 1.03 L 08/12/20 040: [Embedded Image Not Available] Anion Gap LESS [...] potassium level overall to 3.8 On Sat Aug 08, 2020 DELIA ADAM wrote Potassium [...] Delia Adam MD Verified/Reviewed by 08/12/20 1422 [facility] Progress Note-Hospitalist [facility] PROG.Rocael 08-12-2020 PROG.[facility] Patient Name: ANDRE BLANCA [address] Date of : [address] [place] [address] Unit Number: [id number] Progress Note-Jive Developer Patient Status: ADM IN Attending Doctor: Marta Horvath DO Service Date: 08/12/20 0751 Progress Note-Jive Developer Subjective Subjective: Patient still on high flow oxygen at this time. Patient is delirious, but seems a little more oriented today. Objective Vital Signs: Vital Signs (Last) Result Date Time Pulse Ox 99 08/12 0700 B/P 127/69 08/12 0700 B/P Mean 83 08/12 0700 O2 Delivery HIGH FLOW NC 08/12 07 O2 Flow Rate 40L75% 08/12 07 Pulse 97 08/12 0700 Resp 18 08/12 0700 Temp 99.0 08/12 0530 IandO 24 Hour Summary 08/12 0000 Intake [...] TUBE 1522 Carbamazepine 200 MG TIDWM 08/05 0800 AC 08/11 (TEGRETOL TAB) TUBE 1523 Clopidogrel [...] TUBE LIQUID UDC) Melatonin 10 MG QHS 08/090 AC 08/11 (MELATONIN TAB) TUBE 210 Menthol/Methyl [...] TUBE 1216 Pravastatin Sodium 40 MG QHS 08/040 AC 08/11 (PRAVACHOL TAB) TUBE 2107 Pregabalin 150 MG BID 08/04 2100 AC 08/11 (LYRICA CAP) TUBE 210 Quetiapine Fumarate 100 MG QHS 08/08 2200 AC 08/11 (SEROQUEL TAB) TUBE 2107 Risperidone 3 MG BID 08/09 2100 AC [...] 0350 Report Impression - Status: SIGNED Entered: 08/11/202036 IMPRESSION: No significant interval change. Impression By: [...] ABG O2 Capacity (mL/dL) 12.6 08/11 538 Dogu Test POSITIVE 08/11 538 Sodium (136 - [...] Fishbone) 08/12/20 0409: Ionized Calcium 1.03 L 08/12/20408: [Embedded Image Not Available] Anion Gap LESS [...] CVA, and Former Tobacco Abuse presented to [facility] emergency department on 07/27 secondary to Syncope [...] #7) for aspiration pneumonia, watch off antibiotics. 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 Patient spent time at the [facility] according to son, that is the facility [...] Jayesh Loera MD Verified/Reviewed by 08/12/20 0755 [facility] Progress Note-Jive Developer [facility] PTPNon 08-12-2020 PT Progress Note [facility] PTPN Physical Therapy Inpatient Treatment Note Medical Diagnosis: 1. Acute hypoxemic respiratory failure 2. Syncope 3. Hypothyroidism multiple rib fxs Demographics: Age: 70Y Gender: Female Primary Language: [place] Preferred Language: [place] [facility] Precautions/Restrictio ns: NG tube, 4-point restraints, [...] stand requiring moderate assistance of 1 person. 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 Curb Negotiation: Not assessed. [facility] PATIENT NAME: ANDRE BLANCA [facility] Dr. Andrea MEDICAL REC #: [id number] [place] [address] ADMIT DATE: 07/27/20 SERVICE DATE: 08/12/20 Physical [...] to include: gait, transfes, endurance, balance, safety [facility] PATIENT NAME: ANDRE BLANCA Dr. Andrea MEDICAL REC #: [id number] [place] [address] ADMIT DATE: 07/27/20 SERVICE DATE: 08/12/20 Physical Therapy Progress Note ATTENDING PHY: Marta Horvath DO Recommended Physical Therapy Follow Up: Upon acute care discharge, the following is currently recommended: Inpatient Physical Therapy, LESS THAN 60 minutes per day. Recommended Equipment: Recommended Consults: Development of Plan of Care: There was no change to plan of care today. If there are any questions regarding this service, please contact the Acute Therapy Department at extension [phone] Location of Patient at End of Therapy Session: In chair, chair alarm in place, call light within reach Services: Total Billed: 38 minutes (Timed: 38, Untimed: 0) 38.00 Timed: [46680] THER ACTIVITIES / 15 MIN 0.00 Untimed: [] PT Treatment- General ORDER Signed by: Michel Cooper, CURATOR [employer] 08/12/2020 13:20:17 - CoSigned By: Ioana Holden, 08/12/2020 2:00:39 PM [facility] PATIENT NAME: ANDRE BLANCA Dr. Andrea MEDICAL REC #: [id number] [place] [address] ADMIT DATE: 07/27/20 SERVICE DATE: 08/12/20 Physical Therapy Progress Note ATTENDING PHY: Marta Horvath DO Normal [facility] STOOL PANEL GIon 08-12-2020 ADENOVIRUS PCR NOT DETECTED Normal NOTDETECTED [facility] [place] Comment on above: Order Comment: Campu s: MSPECIMEN SOURCE: STOOL Performed By: #### L 780.67653 ####[facility] [id number] [place], [place] [address]Hb# [phone] ASTROVIRUS PCR NOT DETECTED Normal NOTDETECTED [facility] [place] Comment on above: Order Comment: Campu s: MSPECIMEN SOURCE: STOOL Result Comment: Viru s, bacteria, and parasite nucleic acid may persist in vivo independently of organism viability. Additionally, some organisms may be carried asymptomatically. Detection of organism targets does not imply that the corresponding organisms are infections or are the causative agents for clinical symptoms. Performed By: #### L 780.50381 ####[facility] [id number] [place], [place] [address]Xj# [phone] CAMPY NOT DETECTED Normal NOTDETECTED [facility] [place] Comment on above: Order Comment: Campu s: MSPECIMEN SOURCE: STOOL Performed By: #### L 780.90355 ####[facility] [id number] [place], [place] [address]Oc# [phone] CRYPTOSPORIDIUM NOT DETECTED Normal NOTDETECTED [facility] [place] Comment on above: Order Comment: Campu s: MSPECIMEN SOURCE: STOOL Performed By: #### L 780.28322 ####[facility] [id number] [place], [place] [address]Av# [phone] CYCLOSPORA PCR NOT DETECTED Normal NOTDETECTED [facility] [place] Comment on above: Order Comment: Campu s: MSPECIMEN SOURCE: STOOL Performed By: #### L 780.73137 ####[facility] [id number] [place], [place] [address]As# [phone] E.COLI O157 PCR NOT DETECTED Normal NOTDETECTED [facility] [place] Comment on above: Order Comment: Campu s: MSPECIMEN SOURCE: STOOL Performed By: #### L 780.57456 ####[facility] HJNINFTWYW2589 [place], [place] [address]Xr# [phone] E.HISTOLYTICA NOT DETECTED Normal NOTDETECTED [facility] [place] Comment on above: Order Comment: Campu s: MSPECIMEN SOURCE: STOOL Performed By: #### L 780.09250 ####[facility] NSEXEKMLBZ3515 [place], [place] [address]La# [phone] EAEC E COLI PCR NOT DETECTED Normal NOTDETECTED [facility] [place] Comment on above: Order Comment: Campu s: MSPECIMEN SOURCE: STOOL Performed By: #### L 780.54929 ####[facility] [id number] [place] [address]Oj# [phone] EPEC E COLI PCR NOT DETECTED Normal NOTDETECTED [facility] [place] Comment on above: Order Comment: Campu s: MSPECIMEN SOURCE: STOOL Performed By: #### L 780.54170 ####[facility] [id number] [place] [address]Ce# [phone] ETEC E.COLI PCR NOT DETECTED Normal NOTDETECTED [facility] [place] Comment on above: Order Comment: Campu s: MSPECIMEN SOURCE: STOOL Performed By: #### L 780.56500 ####[facility] [id number] [place] [address]Ga# [phone] GIARDIA CARTER PCR NOT DETECTED Normal NOTDETECTED [facility] [place] Comment on above: Order Comment: Campu s: MSPECIMEN SOURCE: STOOL Performed By: #### L 780.84711 ####[facility] [id number] [place] [address]Ct# [phone] NOROVIRUS PCR NOT DETECTED Normal NOTDETECTED [facility] [place] Comment on above: Order Comment: Campu s: MSPECIMEN SOURCE: STOOL Performed By: #### L 780.52884 ####[facility] [id number] [place] [address]Kl# [phone] PLESIOMONAS PCR NOT DETECTED Normal NOTDETECTED [facility] [place] Comment on above: Order Comment: Campu s: MSPECIMEN SOURCE: STOOL Performed By: #### L 780.44650 ####[facility] [id number] [place], [place] [address]Ve# [phone] ROTAVIRUS A PCR NOT DETECTED Normal NOTDETECTED [facility] [place] Comment on above: Order Comment: Campu s: MSPECIMEN SOURCE: STOOL Performed By: #### L 780.75848 ####[facility] [id number] [place], [place] [address]Sk# [phone] SALMONELLA PCR NOT DETECTED Normal NOTDETECTED [facility] [place] Comment on above: Order Comment: Campu s: MSPECIMEN SOURCE: STOOL Performed By: #### L 780.74621 ####[facility] [id number] [place] [address]Jk# [phone] SAPOVIRUS PCR NOT DETECTED Normal [facility]DET[facility]ED [facility] Comment on above: Order Comment: Campu s: MSPECIMEN SOURCE: STOOL Performed By: #### L 780.94722 ####[facility] [id number] [place] [address]Bd# [phone] SHIGATOXIN ECOL NOT DETECTED Normal NOTDETECTED [facility] [place] Comment on above: Order Comment: Campu s: MSPECIMEN SOURCE: STOOL Performed By: #### L 780.73393 ####[facility] [id number] [place] [address]Ff# [phone] SHIGELLA/EIEC NOT DETECTED Normal NOTDETECTED [facility] [place] Comment on above: Order Comment: Campu s: MSPECIMEN SOURCE: STOOL Performed By: #### L 780.02439 ####[facility] [id number] [place] [address]Ec# [phone] V CHOLERAE PCR NOT DETECTED Normal NOTDETECTED [facility] [place] Comment on above: Order Comment: Campu s: MSPECIMEN SOURCE: STOOL Performed By: #### L 780.23557 ####[facility] [id number] [place], [place] [address]Zu# [phone] VIBRIO PCR NOT DETECTED Normal NOTDETECTED [facility] Comment on above: Order Comment: Campu s: MSPECIMEN SOURCE: STOOL Performed By: #### L 780.89856 ####[facility] [id number] [place], [place] [address]Qt# [phone] YERSINIA PCR NOT DETECTED Normal NOTDETECTED [facility] Comment on above: Order Comment: Campu s: MSPECIMEN SOURCE: STOOL Performed By: #### L 780.86893 ####[facility] [id number] [place], [place] [address]Ph# [phone] ABGPEGLAon 08-11-2020 ABG BE 7.0 MML/L High -2.0-2.[address] [facility] Comment on above: Order Comment: Campu s: MCKENNA BLOOD GAS? YPatient's Anticoagulant? UNKNOWN Performed By: #### L 100.22622 ####[facility] [id number] [place], [place] [address]Ph# [phone] ABG COHBA 0.2 % Normal 0-[address] [facility] Comment on above: Order Comment: Campu s: MCKENNA BLOOD GAS? YPatient's Anticoagulant? UNKNOWN Performed By: #### L 100.08234 ####[facility] [id number] [place], [place] [address]Fd# [phone] ABG GLU 174 MG/DL High 60-[address] [facility] Comment on above: Order Comment: Campu s: MCKENNA BLOOD GAS? YPatient's Anticoagulant? UNKNOWN Performed By: #### L 100.07315 ####[facility] [id number] [place] [address]Df# [phone] ABG HCO3 32.5 MMOL/L High 22-[address] [facility] Comment on above: Order Comment: Campu s: MCKENNA BLOOD GAS? YPatient's Anticoagulant? UNKNOWN Performed By: #### L 100.91958 ####[facility] [id number] [place], [place] [address]Fz# [phone] ABG MET 0.3 % Low 0.4-1.[address] [facility] Comment on above: Order Comment: Campu s: MCKENNA BLOOD GAS? YPatient's Anticoagulant? UNKNOWN Performed By: #### L 100.07493 ####[facility] DEFVIGSPXM3590 [place], [place] [address]Td# [phone] ABG O2 CAPACITY 12.6 mL/dL Normal [facility] Comment on above: Order Comment: Campu s: MCKENNA BLOOD GAS? YPatient's Anticoagulant? UNKNOWN Performed By: #### L 100.67153 ####[facility] NECDKHGYMP7234 [place], [place] [address]Cn# [phone] ABG O2 CONTENT 11.9 mL/dL Low 15.7-21.[address] [facility] Comment on above: Order Comment: Campu s: MCKENNA BLOOD GAS? YPatient's Anticoagulant? UNKNOWN Performed By: #### L 100.71085 ####[facility] [id number] [place] [address]Vz# [phone] ABG O2HB SAT 92.7 % Normal 90-[address] [facility] Comment on above: Order Comment: Campu s: MCKENNA BLOOD GAS? YPatient's Anticoagulant? UNKNOWN Performed By: #### L 100.04633 ####[facility] HSDWIUPRBA1860 [place], [place] [address]Pg# [phone] ABG PCO2 52.4 MMHG High 35-[address] [facility] Comment on above: Order Comment: Campu s: MCKENNA BLOOD GAS? YPatient's Anticoagulant? UNKNOWN Performed By: #### L 100.78812 ####[facility] [id number] [place], [place] [address]Ph# [phone] ABG PH 7.41 Normal 7.35-7.[address] [facility] Comment on above: Order Comment: Campu s: MCKENNA BLOOD GAS? YPatient's Anticoagulant? UNKNOWN Performed By: #### L 100.56883 ####[facility] [id number] [place], [place] [address]Ih# [phone] ABG PO2 71 MMHG Low 80-[address] [facility] Comment on above: Order Comment: Campu s: MCKENNA BLOOD GAS? YPatient's Anticoagulant? UNKNOWN Performed By: #### L 100.69810 ####[facility] [id number] [place], [place] [address]Ue# [phone] DOUG TEST Positive Normal [facility] Comment on above: Order Comment: Campu s: MCKENNA BLOOD GAS? YPatient's Anticoagulant? UNKNOWN Performed By: #### L 100.76698 ####[facility] [id number] [place], [place] [address]Ph# [phone] aPTT Coag (Bld) [Time] 37.2 C Normal [facility] Comment on above: Order Comment: Campu s: MCKENNA BLOOD GAS? YPatient's Anticoagulant? UNKNOWN Performed By: #### L 100.62645 ####[facility] AABGMFQKWM7705 [place], [place] [address]Vu# [phone] EQUIPMENT HIGH FLOW CANNULA Normal [facility] Comment on above: Order Comment: Campu s: MCKENNA BLOOD GAS? YPatient's Anticoagulant? UNKNOWN Performed By: #### L 100.29828 ####[facility] [id number] [place] [address]Ct# [phone] FIO2 52 % Normal [facility] Comment on above: Order Comment: Campu s: MCKENNA BLOOD GAS? YPatient's Anticoagulant? UNKNOWN Performed By: #### L 100.45450 ####[facility] [id number] [place] [address]Tm# [phone] Hemoglobin (Bld) [Mass/Vol] 6.8 % High 0-[address] [facility] Comment on above: Order Comment: Campu s: MCKENNA BLOOD GAS? YPatient's Anticoagulant? UNKNOWN Performed By: #### L 100.07082 ####[facility] [id number] [place], [place] [address]Gz# [phone] Hemoglobin (Bld) [Mass/Vol] 9.1 g/dL Low 10-[address] [facility] Comment on above: Order Comment: Campu s: MCKENNA BLOOD GAS? YPatient's Anticoagulant? UNKNOWN Performed By: #### L 100.25901 ####[facility] [id number] [place] [address]Ph# [phone] IONIZED CA 1.10 MMOL/L Low 1.13-1.[address] [facility] Comment on above: Order Comment: Campu s: MCKENNA BLOOD GAS? YPatient's Anticoagulant? UNKNOWN Performed By: #### L 100.49783 ####[facility] W[address]TGUVOHM[address] [place] [address]# [phone] LACTATE BLOOD 0.94 MMOL/L Normal 0.40-2.[address] [facility] Comment on above: Order Comment: Campu s: MCKENNA BLOOD GAS? YPatient's Anticoagulant? UNKNOWN Performed By: #### L 100.74174 ####[facility] [id number] [place], [place] [address]Ph# [phone] LITERFLOW 45.00 L/M Normal [facility] Comment on above: Order Comment: Campu s: MCKENNA BLOOD GAS? YPatient's Anticoagulant? UNKNOWN Performed By: #### L 100.35517 ####[facility] [id number] [place], [place] [address]Ph# [phone] Oxygen saturation in Blood 94 % Normal [facility] Comment on above: Order Comment: Campu s: MCKENNA BLOOD GAS? YPatient's Anticoagulant? UNKNOWN Performed By: #### L 100.63185 ####[facility] [id number] [place], [place] [address]Ph# [phone] Potassium [Moles/Vol] 3.2 mmol/L Low 3.5-5.0 [facility] Comment on above: Order Comment: Campu s: MCKENNA BLOOD GAS? YPatient's Anticoagulant? UNKNOWN Performed By: #### L 100.13975 ####[facility] [id number] [place], [place] [address]Ph# [phone] SAMPLE SITE L RADIAL Normal [facility] Comment on above: Order Comment: Campu s: MCKENNA BLOOD GAS? YPatient's Anticoagulant? UNKNOWN Performed By: #### L 100.58019 ####[facility] WVAHSGFIDW6212 [place], [place] [address]In# [phone] SAMPLE TYPE ARTERIAL Normal [facility] Comment on above: Order Comment: Campu s: MCKENNA BLOOD GAS? YPatient's Anticoagulant? UNKNOWN Performed By: #### L 100.30724 ####[facility] [id number] [place], [place] [address]Ph# [phone] Sodium [Moles/Vol] 147 mmol/L Normal 136-[address] [facility] Comment on above: Order Comment: Campu s: MCKENNA BLOOD GAS? YPatient's Anticoagulant? UNKNOWN Performed By: #### L 100.33765 ####[facility] [id number] [place], [place] [address]Mp# [phone] CBC W/DIFFon 08-11-2020 BAND ABS 0.94 K/CU MM Normal [facility] Comment on above: Order Comment: Campu s: M Performed By: #### L 200.94699 ####[facility] [id number] [place], [place] [address]Ph# [phone] Band form neutrophils/100 WBC (Bld) 6.0 % Normal 0-7 [facility] Comment on above: Order Comment: Campu s: M Performed By: #### L 200.20284 ####[facility] [id number] [place], [place] [address]Ph# [phone] EOS ABS 0.94 K/CU MM High 0-0.[address] [facility] Comment on above: Order Comment: Campu s: M Performed By: #### L 200.18286 ####[facility] [id number] [place], [place] [address]Ph# [phone] Eosinophils/100 WBC (Bld) 6.0 % High 0-5 [facility] Comment on above: Order Comment: Campu s: M Performed By: #### L 200.05628 ####[facility] [id number] [place], [place] [address]Ph# [phone] HYPO 1+ Normal [facility] Comment on above: Order Comment: Campu s: M Performed By: #### L 200.52915 ####[facility] [id number] [place] [address]Ph# [phone] Lymphocytes (Bld) [#/Vol] 0.31 K/CU MM Low 0.9-4.4 [facility] Comment on above: Order Comment: Campu s: M Performed By: #### L 200.64805 ####[place] [address]Ph# [phone] Lymphocytes/100 WBC (Bld) 2.0 % Low 20-40 [facility] Comment on above: Order Comment: Campu s: M Performed By: #### L 200.82760 ####[place] [address]Ph# [phone] META % 1.0 % Normal [facility] Comment on above: Order Comment: Campu s: M Performed By: #### L 200.33340 ####[facility] [id number] [place], [place] [address]Ph# [phone] META ABS 0.16 K/CU MM Normal [facility] Comment on above: Order Comment: Campu s: M Performed By: #### L 200.72342 ####[facility] [id number] [place], [place] [address]Ph# [phone] MONO ABS 0.63 K/CU MM Normal 0.1-1.1 [facility] Comment on above: Order Comment: Campu s: M Performed By: #### L 200.72308 ####[facility] [id number] [place], [place] [address]Ph# [phone] Monocytes/100 WBC (Bld) 4.0 % Normal 2-10 [facility] Comment on above: Order Comment: Campu s: M Performed By: #### L 200.70237 ####[facility] [id number] [place], [place] [address]Yn# [phone] MYELO ABS 0.16 K/CU MM Normal [facility] Comment on above: Order Comment: Campu s: M Performed By: #### L 200.56788 ####[facility] LAKCNITYIX2886 [place], [place] [address]Gz# [phone] MYELOCYTE % 1.0 % Normal [facility] Comment on above: Order Comment: Campu s: M Performed By: #### L 200.70821 ####[address] [address]Sg# [phone] NEUTROPHIL ABS 12.56 K/CU MM High 2.0-8.[address] [facility] Comment on above: Order Comment: Campu s: M Performed By: #### L 200.47219 ####[address] [address]Xw# [phone] Neutrophils/100 WBC (Bld) 80.0 % High 45-75 [facility] Comment on above: Order Comment: Campu s: M Performed By: #### L 200.09655 ####[facility] [id number] [place] [address]Zr# [phone] Platelets (Bld) [#/Vol] ADEQUATE Normal [facility] Comment on above: Order Comment: Campu s: M Performed By: #### L 200.89070 ####[facility] [id number] [place] [address]Oc# [phone] PLT MORPH LARGE FORMS NOTED Normal [facility] Comment on above: Order Comment: Campu s: M Performed By: #### L 200.08634 ####[facility] [id number] [place] [address]Rd# [phone] POLY 1+ Normal [facility] Comment on above: Order Comment: Campu s: M Performed By: #### L 200.52828 ####[facility] [id number] [place], [place] [address]Ph# [phone] TOXIC GRAN PRESENT Normal [facility] Comment on above: Order Comment: Campu s: M Performed By: #### L 200.29487 ####[facility] [id number] [place], [place] [address]Lc# [phone] Erythrocyte distribution width (RBC) [Ratio] 16.0 % High 11-14.[address] [facility] Comment on above: Order Comment: Campu s: M Performed By: #### L 200.73820 ####[facility] [id number] [place] [address]Qa# [phone] Hematocrit (Bld) [Volume fraction] 26.1 % Low 35.0-47.[address] [facility] Comment on above: Order Comment: Campu s: M Performed By: #### L 200.47860 ####[address] [address]Yr# [phone] Hemoglobin (Bld) [Mass/Vol] 8.0 g/dL Low 11.5-15.[address] [facility] Comment on above: Order Comment: Campu s: M Performed By: #### L 200.57443 ####[address] [address]Ps# [phone] MCHC (RBC) [Mass/Vol] 30.7 g/dL Low 32.0-36.0 [facility] Comment on above: Order Comment: Campu s: M Performed By: #### L 200.58081 ####[facility] [id number] [place] [address]Mj# [phone] MCV (RBC) [Entitic vol] 96.3 fL Normal 80.0-99.0 [facility] Comment on above: Order Comment: Campu s: M Performed By: #### L 200.61237 ####[facility] [id number] [place] [address]Uz# [phone] Nucleated RBC/100 WBC (Bld) [Ratio] 0.0 % Normal Less than [address] [facility] Comment on above: Order Comment: Campu s: M Performed By: #### L 200.69822 ####[facility] [id number] [place], [place] [address]Zp# [phone] Platelet mean volume (Bld) [Entitic vol] 12.0 fL Normal 9.4-12.[address] [facility] Comment on above: Order Comment: Campu s: M Performed By: #### L 200.96412 ####[facility] [id number] [place], [place] [address]Wi# [phone] Platelets (Bld) [#/Vol] 174 K/CU MM Normal 150-[address] [facility] Comment on above: Order Comment: Campu s: M Performed By: #### L 200.26822 ####[address] [place], [place] [address]Ve# [phone] RBC (Bld) [#/Vol] 2.71 M/CU MM Low 3.90-5.[address] [facility] Comment on above: Order Comment: Campu s: M Performed By: #### L 200.49908 ####[facility] [id number] [place], [place] [address]Oe# [phone] WBC (Bld) [#/Vol] 15.7 K/CUMM High 4.5-11.[address] [facility] Comment on above: Order Comment: Campu s: M Performed By: #### L 200.08995 ####[facility] [id number] [place], [place] [address]Cc# [phone] CMPon 08-11-2020 Albumin [Mass/Vol] 1.9 g/dL Low 3.2-5.[address] [facility] Comment on above: Order Comment: Campu s: M Minimal Draw: Y Performed By: #### L 500.71212, L500.25077 #### [facility] [address] [place] [address] Albumin/Globulin [Mass ratio] 0.6 {ratio} Low 0.8-2.[address] [facility] Comment on above: Order Comment: Campu s: M Minimal Draw: Y Performed By: #### L 500.28572, L500.18238 #### [facility] [address] [place], [place] [address] ALK PHOS 123 U/L High 45-[address] [facility] Comment on above: Order Comment: Campu s: M Minimal Draw: Y Performed By: #### L 500.34655, L500.69479 #### [facility] [address] [place] [address] ALT [Catalytic activity/Vol] 19 U/L Normal 13-[address] [facility] Comment on above: Order Comment: Campu s: M Minimal Draw: Y Result Comment: RESU LTS MAY BE FALSELY DEPRESSED AFTER THE ADMINISTRATION OF SULFASALAZINE AND/OR SULFAPYRIDINE. Performed By: #### L 500.86786, L500.12761 #### [facility] [address] [place] [address] Anion gap [Moles/Vol] 5 mmol/L Normal 5-16 [facility] Comment on above: Order Comment: Campu s: M Minimal Draw: Y Performed By: #### L 500.20720, L500.78374 #### [facility] [address] [place] [address] BILI TOTAL 0.30 MG/DL Normal 0.2-1.[address] [facility] Comment on above: Order Comment: Campu s: M Minimal Draw: Y Performed By: #### L 500.55101, L500.24574 #### [facility] [address] [place] [address] Calcium [Mass/Vol] 8.0 mg/dL Low 8.5-10.[address] [facility] Comment on above: Order Comment: Campu s: M Minimal Draw: Y Result Comment: NOTE NEW NORMAL RANGE DUE TO REAGENT CHANGE Performed By: #### L 500.45675, L500.50047 #### [facility] [address] [place], [place] [address] Chloride [Moles/Vol] 114 mmol/L High 98-107 [facility] Comment on above: Order Comment: Abundiou s: M Minimal Draw: Y Performed By: #### L 500.45939, L500.32307 #### [facility] [address] [place] [address] CO2 [Moles/Vol] 34.0 mmol/L High 21-[address] [facility] Comment on above: Order Comment: Abundiou s: M Minimal Draw: Y Performed By: #### L 500.15214, L5.12966 #### [facility] [address] [place] [address] Creatinine [Mass/Vol] 0.67 mg/dL Normal 0.510-0.950 [facility] Comment on above: Order Comment: Abundiou s: M Minimal Draw: Y Result Comment: Geraldine ents receiving either N-Acetylcysteine (NAC) or Metamizole prior to venipuncture, may have falsely depressed results. Performed By: #### L 500.37236, L5.89778 #### [facility] [address] [place] [address] Globulin (S) [Mass/Vol] 3.2 g/dL Normal 2.2-4.2 [facility] Comment on above: Order Comment: Abundiou s: M Minimal Draw: Y Performed By: #### L 500.68760, L500.14261 #### [facility] [address] [place] [address] Glucose [Mass/Vol] 173 mg/dL High 70-[address] [facility] Comment on above: Order Comment: Abundiou s: M Minimal Draw: Y Result Comment: 70-1 00- Normal Fasting; 100-125 Impaired Fasting; greater than 126 on more than one result- Diabetes. ADA guidelines. Results may be falsely elevated after the administration of Sulfapyridine. Results may be falsely depressed after the administration of Sulfasalazine. Performed By: #### L 500.51506, L500.23588 #### [facility] [address] [place] [address] Potassium [Moles/Vol] 3.4 mmol/L Low 3.5-5.1 [facility] Comment on above: Order Comment: Campu s: M Minimal Draw: Y Performed By: #### L 500.99791, L500.45101 #### [facility] [address] [place] [address] Protein [Mass/Vol] 5.1 g/dL Low 6.0-8.[address] [facility] Comment on above: Order Comment: Campu s: M Minimal Draw: Y Performed By: #### L 500.10466, L500.30684 #### [facility] [address] [place] [address] SGOT (AST) 26 U/L Normal 8-[address] [facility] Comment on above: Order Comment: Campu s: M Minimal Draw: Y Result Comment: RESU LTS MAY BE FALSELY DEPRESSED AFTER THE ADMINISTRATION OF SULFASALAZINE AND/OR SULFAPYRIDINE. Performed By: #### L 500.50124, L500.65492 #### [facility] [address] [place] [address] Sodium [Moles/Vol] 153 mmol/L High 136-[address] [facility] Comment on above: Order Comment: Campu s: M Minimal Draw: Y Performed By: #### L 500.71475, L500.63836 #### [facility] [address] [place] [address] Urea nitrogen [Mass/Vol] 18 mg/dL Normal 7-[address] [facility] Comment on above: Order Comment: Campu s: M Minimal Draw: Y Performed By: #### L 500.83334, L500.19577 #### [facility] [address] [place] [address] Urea nitrogen/Creatinine [Mass ratio] 27 mg/mg High 15-[address] [facility] Comment on above: Order Comment: Campu s: M Minimal Draw: Y Performed By: #### L 500.95888, L500.95387 #### [facility] [address] [place] [address] GFR ESTon 08-11-2020 IF AMER Greater than 60 Normal [facility] Comment on above: Order Comment: Abundiou s: M Minimal Draw: Y Performed By: #### L 500.18325, L500.58367 #### [facility] [address] [place] [address] IF non-AFR AMER Greater than 60 Normal [facility] Comment on above: Order Comment: Abundiou s: M Minimal Draw: Y Performed By: #### L 500.42704, L500.58215 #### [facility] [address] [place] [address] PROG [facility] 08-11-2020 PROG [facility] Patient Name: ANDRE BLANCA [address] [place] [address] Date of : [address] [address] Unit Number: [id number] Progress Note-Hospitalist Patient Status: ADM IN Attending [...] has been following and managing On Mon 12:30p Aug 10, 2020 DELIA ADAM wrote Patient enoc on high flow nasal cannula, wean O2 as tolerated. Chest x-ray showing findings concerning for pneumonia for which patient has been receiving treatment with Unasyn. Pulmonary critical care following On Sun Aug 09, 2020 DELIA ADAM wrote Patient remains on high flow, chest x-ray showing findings concerning for pneumonia On Sat 3:Aug 08, 2020 DELIA ADAM wrote Possibly secondary to recent pneumonia. Chest x-ray showing bilateral pulmonary infiltrates 3. TASHI (acute kidney injury) Patient with previous TASHI with creatinine up to 4.24, creatinine now 0.67 on last check. TASHI thought to be resolved On Mon Aug 10, 2020 DELIA ADAM wrote TASHI thought to be improved, creatinine 0.72 on last check On Sun Aug 09, 2020 DELIA ADAM wrote TASHI thought [...] 65%. Patient was given fluids On Sun Aug 09, 2020 DELIA ADAM wrote No current [...] a.m., check magnesium level in a.m. On Mon 12:30p Aug 10, 2020 DELIA ADAM wrote Potassium level somewhat better overall currently 3.5. Replace as needed On Sun 1:Aug 09, 2020 DELIA ADAM wrote Improvement in potassium level overall to 3.8 On Sat 3:42p Aug 08, 2020 DELIA ADAM wrote Potassium level low at 3.4 today. Patient was ordered IV potassium replaced, check magnesium level in the a.m. 6. Hypernatremia Sodium level 153 again today. Patient's free water flushes are being increased, follow sodium level in a.m. On Mon 12:30p Aug 10, 2020 DELIA ADAM wrote Sodium level slightly worse today at 153. Patient on free water flushes with tube feeds. Will increase free water flushes On Sun 1:p Aug 09, 2020 DELIA ADAM wrote Sodium level 151 on last check and was increasing. Adding free water with tube feeds Disclaimer This dictation was created using voice recognition software. Phonetic and/or minor grammatical errors may exist. eSign Date and Time Delia Adam MD Verified/Reviewed by 08/11/20 1330 [facility] Progress Note-Hospitalist [facility] PROGZoran 08-11-2020 PROG.[facility] Patient Name: ANDRE BLANCA [address] Date of : [address] [address] Unit Number: [id number] Progress Note-Jive Developer Patient Status: ADM IN Attending Doctor: Marta Horvath DO Service Date: 08/11/20 1248 Progress Note-Jive Developer Subjective Subjective: Pleasantly confuse, alert and oriented [...] 500 MG Q6HPRN PRN 08/04 193 AC 08/11 (TYLENOL ORAL LIQ) TUBE 0923 Albuterol Sulfate 2.5 MG Q6HPRN PRN 07/28 [...] TUBE LIQUID UDC) Melatonin 10 MG QHS 08/090 AC 08/10 (MELATONIN TAB) TUBE 214 Menthol/Methyl 1 APPL BIDPRN PRN 07/28 0030 [...] 538 Lab Results: Lab 24hr (CBC/BMP Fishbone) 08/11/20537: Specimen Type ARTERIAL, Sample Site L RADIAL, [...] CVA, and Former Tobacco Abuse presented to [facility] emergency department on 07/27 secondary to Syncope [...] 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 Patient spent time at the [facility] [address] according to son, that is the facility [...] Time Jayesh Loera MD Verified/Reviewed by 08/11/20 1711 Trina Johnson CNP Normal [facility] Progress Note-Jive Developer [facility] PTPNon 08-11-2020 PT Progress Note Normal [facility] PTPN Physical Therapy Inpatient Missed Visit Note [...] contact the Acute Therapy Department at extension [phone] Services: Total Billed: 0 minutes (Timed: 0, Untimed: 0) 0.00 Untimed: [] PT Treatment- General ORDER Signed by: Ioana Holden, 08/11/2020 12:15:09 [facility] PATIENT NAME: ANDRE BLANCA [facility] Dr. Andrea MEDICAL REC #: [id number] [place] [address] ADMIT DATE: 07/27/20 SERVICE DATE: 08/11/20 Physical Therapy Progress Note ATTENDING PHY: Mart[facility]ath DO [facility] Anion gap [Moles/Vol] 5 mmol/L Normal 5-16 [facility] Comment on above: Order Comment: Campu s: M Performed By: #### L 500.21408, L500.92664, L500.72752, L500.66425 ####[facility] [id number] [place], [place] [address]Pn# [phone] Calcium [Mass/Vol] 7.7 mg/dL Low 8.5-10.[address] [facility] Comment on above: Order Comment: Campu s: M Result Comment: NOTE NEW NORMAL RANGE DUE TO REAGENT CHANGE Performed By: #### L 500.49358, L500.80640, L500.64771, L500.98351 ####[facility] [id number] [place], [place] [address]Fj# [phone] Chloride [Moles/Vol] 116 mmol/L High 98-107 [facility] Comment on above: Order Comment: Campu s: M Performed By: #### L 500.08382, L500.75143, L500.29024, L500.15610 ####[facility] FBRJUJWVDK0132 [place], [place] [address]Yn# [phone] CO2 [Moles/Vol] 32.0 mmol/L Normal 21-[address] [facility] Comment on above: Order Comment: Campu s: M Performed By: #### L 500.43996, L500.82161, L500.72707, L500.15855 ####[facility] [id number] [place], [place] [address]Ck# [phone] Creatinine [Mass/Vol] 0.72 mg/dL Normal 0.510-0.950 [facility] Comment on above: Order Comment: Campu s: M Result Comment: Geraldine ents receiving either N-Acetylcysteine (NAC) or Metamizole prior to venipuncture, may have falsely depressed results. Performed By: #### L 500.68453, L500.29428, L500.09073, L500.15049 ####[facility] [id number] [place], [place] [address]Np# [phone] Glucose [Mass/Vol] 186 mg/dL High 70-[address] [facility] Comment on above: Order Comment: Campu s: M Result Comment: 70-1 00- Normal Fasting; 100-125 Impaired Fasting; greater than 126 on more than one result- Diabetes. ADA guidelines. Results may be falsely elevated after the administration of Sulfapyridine. Results may be falsely depressed after the administration of Sulfasalazine. Performed By: #### L 500.14258, L500.56687, L500.64095, L500.41030 ####[facility] [id number] [place], [place] [address]Wg# [phone] Potassium [Moles/Vol] 3.5 mmol/L Normal 3.5-5.1 [facility] Comment on above: Order Comment: Campu s: M Performed By: #### L 500.86865, L500.88699, L500.41534, L500.86647 ####[facility] [id number] [place], [place] [address]Bd# [phone] Sodium [Moles/Vol] 153 mmol/L High 136-[address] [facility] Comment on above: Order Comment: Campu s: M Performed By: #### L 500.21316, L500.09395, L500.60856, L500.51692 ####[facility] IUNYWRGFRP3331 [place], [place] [address]Vh# [phone] Urea nitrogen [Mass/Vol] 19 mg/dL Normal 7-[address] [facility] Comment on above: Order Comment: Campu s: M Performed By: #### L 500.10358, L500.32036, L500.47526, L500.45017 ####[facility] [id number] [place], [place] [address]Ce# [phone] Urea nitrogen/Creatinine [Mass ratio] 26 mg/mg High 15-[address] [facility] Comment on above: Order Comment: Campu s: M Performed By: #### L 500.28623, L500.09910, L500.91184, L500.51734 ####[facility] BQHMULNVGV0168 [place], [place] [address]Zl# [phone] CBC W/DIFFon 08-10-2020 EOS ABS 0.56 K/CU MM High 0-0.[address] [facility] Comment on above: Order Comment: Campu s: M Performed By: #### L 200.30786 #### [facility] [address] [place] [address] Eosinophils/100 WBC (Bld) 3.0 % Normal 0-[address] [facility] Comment on above: Order Comment: Campu s: M Performed By: #### L 200.39591 #### [facility] [address] [place] [address] HYPO 1+ Normal [facility] Comment on above: Order Comment: Campu s: M Performed By: #### L 200.59772 #### [facility] [address] [place] [address] Lymphocytes (Bld) [#/Vol] 1.50 K/CU MM Normal 0.9-4.[address] [facility] Comment on above: Order Comment: Campu s: M Performed By: #### L 200.88106 #### [facility] [address] [place] [address] Lymphocytes/100 WBC (Bld) 8.0 % Low 20-[address] [facility] Comment on above: Order Comment: Campu s: M Performed By: #### L 200.80408 #### [facility] [address] [place] [address] META % 2.0 % Normal [facility] Comment on above: Order Comment: Campu s: M Performed By: #### L 200.11942 #### [facility] [address] [place] [address] META ABS 0.37 K/CU MM Normal [facility] Comment on above: Order Comment: Campu s: M Performed By: #### L 200.42451 #### [facility] [address] [place] [address] MONO ABS 0.19 K/CU MM Normal 0.1-1.[address] [facility] Comment on above: Order Comment: Campu s: M Performed By: #### L 200.03459 #### [facility] [address] [place] [address] Monocytes/100 WBC (Bld) 1.0 % Low 2-10 [facility] Comment on above: Order Comment: Campu s: M Performed By: #### L 200.11007 #### [facility] [address] [place], [place] [address] MYELO ABS 0.19 K/CU MM Normal [facility] Comment on above: Order Comment: Campu s: M Performed By: #### L 200.35500 #### [facility] [address] [place] [address] MYELOCYTE % 1.0 % Normal [facility] Comment on above: Order Comment: Campu s: M Performed By: #### L 200.29616 #### [facility] [address] [place] [address] NEUTROPHIL ABS 15.90 K/CU MM High 2.0-8.[address] [facility] Comment on above: Order Comment: Campu s: M Performed By: #### L 200.42674 #### [facility] [address] [place] [address] Neutrophils/100 WBC (Bld) 85.0 % High 45-[address] [facility] Comment on above: Order Comment: Campu s: M Performed By: #### L 200.39899 #### [facility] [address] [place] [address] Platelets (Bld) [#/Vol] ADEQUATE Normal [facility] Comment on above: Order Comment: Campu s: M Performed By: #### L 200.73036 #### [facility] [address] [place] [address] POLY 1+ Normal [facility] Comment on above: Order Comment: Campu s: M Performed By: #### L 200.09287 #### [facility] [address] [place] [address] Erythrocyte distribution width (RBC) [Ratio] 15.6 % High 11-14.[address] [facility] Comment on above: Order Comment: Campu s: M Performed By: #### L 200.87825 #### [facility] [address] [place] [address] Hematocrit (Bld) [Volume fraction] 28.2 % Low 35.0-47.[address] [facility] Comment on above: Order Comment: Campu s: M Performed By: #### L 200.53180 #### [facility] [address] [place] [address] Hemoglobin (Bld) [Mass/Vol] 8.8 g/dL Low 11.5-15.[address] [facility] Comment on above: Order Comment: Campu s: M Performed By: #### L 200.55511 #### [facility] [address] [place] [address] MCHC (RBC) [Mass/Vol] 31.2 g/dL Low 32.0-36.0 [facility] Comment on above: Order Comment: Campu s: M Performed By: #### L 200.05577 #### [facility] [address] [place] [address] MCV (RBC) [Entitic vol] 94.9 fL Normal 80.0-99.0 [facility] Comment on above: Order Comment: Campu s: M Performed By: #### L 200.63465 #### [facility] [address] [place] [address] Nucleated RBC/100 WBC (Bld) [Ratio] 0.0 % Normal Less than [address] [facility] Comment on above: Order Comment: Campu s: M Performed By: #### L 200.53500 #### [facility] [address] [place] [address] Platelet mean volume (Bld) [Entitic vol] 11.6 fL Normal 9.4-12.[address] [facility] Comment on above: Order Comment: Campu s: M Performed By: #### L 200.82822 #### [facility] [place] [address] Platelets (Bld) [#/Vol] 183 K/CU MM Normal 150-[address] [facility] Comment on above: Order Comment: Campu s: M Performed By: #### L 200.60842 #### [facility] [address] [place], [place] [address] RBC (Bld) [#/Vol] 2.97 M/CU MM Low 3.90-5.[address] [facility] Comment on above: Order Comment: Campu s: M Performed By: #### L 200.28171 #### [facility] [address] [place], [place] [address] WBC (Bld) [#/Vol] 18.7 K/CUMM High 4.5-11.[address] [facility] Comment on above: Order Comment: Campu s: M Performed By: #### L 200.99496 #### [facility] [address] [place], [place] [address] GFR ESTon 08-10-2020 IF AMER Greater than 60 Normal [facility] Comment on above: Order Comment: Campu s: M Performed By: #### L 500.84060, L500.11049, L500.46782, L500.19194 ####[facility] [id number] [place], [place] [address]Sq# [phone] IF non-AFR AMER Greater than 60 Normal [facility] Comment on above: Order Comment: Campu s: M Performed By: #### L 500.85848, L500.82550, L500.38098, L500.40462 ####[facility] [id number] [place], [place] [address]Rz# [phone] IONIZED CAon 08-10-2020 IONIZED CA 1.08 MMOL/L Low 1.16-1.[address] [facility] Comment on above: Order Comment: Abundiou s: M Performed By: #### L 200.40243 #### [facility] [address] [place] [address] MAGNESIUMon 08-10-2020 Magnesium [Mass/Vol] 2.3 MG/CL Normal 1.6-2.6 [facility] Comment on above: Order Comment: Abundiou s: M Performed By: #### L 500.84691, L500.51000, L500.59910, L500.21723 ####[facility] [id number] [place], [place] [address]Ma# [phone] OTPNon 08-10-2020 OT Progress Note Normal [facility] OTPN Occupational Therapy Inpatient Treatment Note Medical Diagnosis: Acute hypoxemic respiratory failure, Syncope, pneumonia, hypothyroidism OCCUPATIONAL PROFILE AND HISTORY Demographics: Age: 70Y Gender: Female Primary Language: [place] Preferred Language: [place] Referring Service/Team: Medicine Rehabilitation Precautions/Restrictio ns: fall [...] bed mobility including supine to sit, rolling, [facility] PATIENT NAME: ANDRE BLANCA [facility] Dr. Andrea MEDICAL REC #: [id number] [place] [address] ADMIT DATE: 07/27/20 SERVICE DATE: 08/10/20 Occupational Therapy Progress Note ATTENDING PHY: Marta Horvath DO scooting. requiring total assistance. Total A x2 Transfers: [...] FOR FOLLOW THROUGH - Not Met: ongoing [facility] PATIENT NAME: ANDRE BLANCA [facility] Dr. Andrea MEDICAL REC #: [id number] [place] [address] ADMIT DATE: 07/27/20 SERVICE DATE: 08/10/20 Occupational Therapy Progress Note ATTENDING PHY: Marta Horvath DO Time frame to achieve [...] contact the Acute Therapy Department at extension [phone] Communication to Nursing: No updates at this time. Location of Patient at End of Therapy Session: In bed, bed alarm in place, call light within reach Services: Total Billed: 15 minutes (Timed: 15, Untimed: 0) 15.00 Timed: [79231] THER ACTIVITIES / 15 MIN 0.00 Untimed: [] OT Treatment General ORDER Signed by: KASEY Bryant 08/10/2020 12:29:24 [facility] PATIENT NAME: ANDRE BLANCA [facility] Dr. Andrea MEDICAL REC #: [id number] [place] [address] ADMIT DATE: 07/27/20 SERVICE DATE: 08/10/20 Occupational Therapy Progress Note ATTENDING PHY: Marta Horvath DO Normal [facility] PHOSon 08-10-2020 Phosphate [Mass/Vol] 3.00 mg/dL Normal 2.5-4.9 [facility] Comment on above: Order Comment: Maciel s: M Result Comment: Elev ated m-protein (paraprotein) levels in the serum may be exhibited in patients with monoclonal gammopathies, causing falsely elevated inorganic phosphorus results. Performed By: #### L 500.38617, L500.12461, L500.10319, L500.71735 ####[facility] [id number] [place], [place] [address]Gg# [phone] PROG [facility] 08-10-2020 PROG [facility] Patient Name: ANDRE BLANCA [facility] Date of : [address] [place], [place] [address] Unit Number: [id number] Progress Note-Hospitalist Patient Status: ADM IN Attending [...] confusion noted Diagnostic Data: Lab 24hr [facility] 08/10/20 035: Ionized Calcium 1.08 L 08/10/20 035: [Embedded Image Not Available] Anion Gap 5, [...] and alveolar opacities present bilaterally On Sun :Aug 09, 2020 DELIA ADAM wrote Some concern [...] Unasyn. Pulmonary critical care following On Sun Aug 09, 2020 DELIA ADAM wrote Patient [...] 65%. Patient was given fluids On Sun 1:p Aug 09, 2020 DELIA ADAM wrote No current [...] currently 3.5. Replace as needed On Sun :p Aug 09, 2020 DELIA ADAM wrote Improvement in potassium level overall to 3.8 On Sat 3:42p Aug 08, 2020 DELIA ADAM wrote Potassium level low at 3.4 today. Patient was ordered IV potassium replaced, check magnesium level in the a.m. 6. Hypernatremia Sodium level slightly worse today at 153. Patient on free water flushes with tube feeds. Will increase free water flushes On Sun :p Aug 09, 2020 DELIA ADAM wrote Sodium level 151 on last check and was increasing. Adding free water with tube feeds Disclaimer This dictation was created using voice recognition software. Phonetic and/or minor grammatical errors may exist. eSign Date and Time Delia Adam MD Verified/Reviewed by 08/10/20 1230 [facility] Progress Note-Hospitalist [facility] PROGZoran 08-10-2020 PROG.[facility] Patient Name: ANDRE BLANCA [address] Date of : [address] [place] [address] Unit Number: [id number] Progress Note-Jive Developer Patient Status: ADM IN Attending Doctor: Marta Horvath DO Service Date: 08/10/20 1012 Progress Note-Jive Developer Subjective Subjective: Patient states having nausea, shortness of breath. No significant pain. Chart was reviewed Objective Vital Signs: Vital Signs (Last) Result Date Time Temp 99.2 08/10 927 Pulse Ox 91 08/10 900 B/P 133/63 08/10 900 B/P Mean 100 08/10 900 O2 Delivery HIGH FLOW NC 08/10 900 O2 Flow Rate 66 08/10 900 Pulse 97 08/10 09 Resp 19 08/10 900 IandO 24 Hour Summary 08/10 0000 Intake [...] 08/09 2200 AC 08/09 (MELATONIN TAB) TUBE 225 Menthol/Methyl 1 APPL BIDPRN PRN 07/28 0030 AC 07/29 Salicylate TP 2217 (MIHIR ALVAREZ T.CREAM) Ondansetron HCl 4 MG BIDPRN PRN 08/04 1930 AC (ZOFRAN TAB) TUBE Ondansetron HCl 4 MG Q6HPRN PRN 07/27 2100 AC 08/04 (ZOFRAN VIAL) IV 212 Pravastatin Sodium 40 MG QHS 08/04 2200 AC 08/09 (PRAVACHOL TAB) TUBE 214 Pregabalin 150 MG BID 08/04 2100 AC 08/10 (LYRICA CAP) TUBE 0929 Quetiapine Fumarate 100 MG QHS 08/08 2200 AC 08/09 (SEROQUEL TAB) TUBE 214 Risperidone 3 MG BID 08/09 2100 AC [...] Recent Impressions (48H) RADIOLOGY - PORTABLE CHEST 08/09 0436 Report [...] (15.7 - 21.6 mL/dL) 13.3 L 08/09 1812 ABG Hemoglobin (10 - 16 GM/DL) 10.3 [...] 1812 Lab Results: Lab 24hr (CBC/BMP Fish[facility]) 08/10/20 0355: Ionized Calcium 1.08 L 08/10/20 035: [Embedded Image Not Available] Anion Gap 5, [...] CVA, and Former Tobacco Abuse presented to [facility] emergency department on 07/27 secondary to Syncope [...] 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 Patient spent time at the [facility] according to son, that is the facility [...] Jayesh Loera MD Verified/Reviewed by 08/10/20 1017 [facility] Progress Note-Jive Developer [facility] 08-10-2020 PT Progress Note [facility] PTPN Physical Therapy Inpatient Treatment Note Medical Diagnosis: 1. Acute hypoxemic respiratory failure 2. Syncope 3. Hypothyroidism multiple rib fxs Demographics: Age: 70Y Gender: Female Primary Language: [place] Preferred Language: [place] Rehabilitation Precautions/Restrictio ns: NG tube, 4-point restraints, [...] bpm Respiratory Rate: 20 breaths per minute [facility] PATIENT NAME: ANDRE BLANCA [facility] Dr. Andrea MEDICAL REC #: [id number] [place] [address] ADMIT DATE: 07/27/20 SERVICE DATE: 08/10/20 Physical Therapy Progress Note ATTENDING DAMIAN: Marta Horvath DO Interventions: Therapeutic Activities: sup<>sit [...] contact the Acute Therapy Department at extension [phone] [facility] PATIENT NAME: ANDRE BLANCA Traci Andrea MEDICAL REC #: [id number] [place] [address] ADMIT DATE: 07/27/20 SERVICE DATE: 08/10/20 Physical Therapy Progress Note ATTENDING GIRISHY: Marta Horvath DO Location of Patient at End of Therapy Session: In bed, bed alarm in place, call light within reach Services: Total Billed: 15 minutes (Timed: 15, Untimed: 0) 15.00 Timed: [11398] THER ACTIVITIES / 15 MIN 0.00 Untimed: [] PT Treatment- General ORDER Signed by: Ioana Holden, 08/10/2020 11:40:28 [facility] PATIENT NAME: ANDRE BLANCA Traci Andrea MEDICAL REC #: [id number] [place] [address] ADMIT DATE: 07/27/20 SERVICE DATE: 08/10/20 Physical Therapy Progress Note ATTENDING PHY: Marta Horvath DO Normal [facility] ABGPEGLAon 08-09-2020 ABG BE 1.8 MML/L Normal -2.0-2.[address] [facility] Comment on above: Order Comment: Abundiou s: M Minimal Draw: Y Performed By: #### L 500.00091, L500.67766 #### [facility] [address] [place] [address] ABG COHBA 0.3 % Normal 0-[address] [facility] Comment on above: Order Comment: Maciel s: M Minimal Draw: Y Performed By: #### L 500.64397, L500.47782 #### [facility] [address] [place] [address] ABG GLU 178 MG/DL High 60-[address] [facility] Comment on above: Order Comment: Maciel s: M Minimal Draw: Y Performed By: #### L 500.78747, L500.96564 #### [facility] [address] [place] [address] ABG HCO3 25.3 MMOL/L Normal 22-[address] [facility] Comment on above: Order Comment: Maciel s: M Minimal Draw: Y Performed By: #### L 500.28999, L500.67630 #### [facility] [address] [place] [address] ABG MET 0.3 % Low 0.4-1.[address] [facility] Comment on above: Order Comment: Abundiou s: M Minimal Draw: Y Performed By: #### L 500.56978, L500.94345 #### [facility] [address] [place], [place] [address] ABG O2 CAPACITY 14.2 mL/dL Normal [facility] Comment on above: Order Comment: Abundiou s: M Minimal Draw: Y Performed By: #### L 500.69930, L500.79618 #### [facility] [address] [place] [address] ABG O2 CONTENT 13.3 mL/dL Low 15.7-21.[address] [facility] Comment on above: Order Comment: Abundiou s: M Minimal Draw: Y Performed By: #### L 500.97935, L500.88010 #### [facility] [place] [address] ABG O2HB SAT 91.7 % Normal 90-[address] [facility] Comment on above: Order Comment: Abundiou s: M Minimal Draw: Y Performed By: #### L 500.48446, L500.85627 #### [facility] [address] [place] [address], [place] [address] ABG PCO2 37.7 MMHG Normal 35-[address] [facility] Comment on above: Order Comment: Abundiou s: M Minimal Draw: Y Performed By: #### L 500.23046, L500.48153 #### [facility] [address] [place] [address] ABG PH 7.45 Normal 7.35-7.[address] [facility] Comment on above: Order Comment: Abundiou s: M Minimal Draw: Y Performed By: #### L 500.35807, L500.99900 #### [facility] [address] [place] [address], [place] [address] ABG PO2 68 MMHG Low 80-[address] [facility] Comment on above: Order Comment: Abundiou s: M Minimal Draw: Y Performed By: #### L 500.34885, L500.85291 #### [facility] [place] [address] DOUG TEST Positive Normal [facility] Comment on above: Order Comment: Campu s: M Minimal Draw: Y Performed By: #### L 500.37535, L500.87446 #### [facility] [address] [place], [place] [address] aPTT Coag (Bld) [Time] 38.4 C Normal [facility] Comment on above: Order Comment: Campu s: M Minimal Draw: Y Performed By: #### L 500.59408, L500.82919 #### [facility] [address] [place] [address] EQUIPMENT HIGH FLOW CANNULA Normal [facility] Comment on above: Order Comment: Abundiou s: M Minimal Draw: Y Performed By: #### L 500.98850, L500.73504 #### [facility] [address] [place] [address] FIO2 45 % Normal [facility] Comment on above: Order Comment: Abundiou s: M Minimal Draw: Y Performed By: #### L 500.00440, L500.33243 #### [facility] [address] [place] [address] Hemoglobin (Bld) [Mass/Vol] 7.7 % High 0-[address] [facility] Comment on above: Order Comment: Abundiou s: M Minimal Draw: Y Performed By: #### L 500.08943, L500.24097 #### [facility] [address] [place], [place] [address] Hemoglobin (Bld) [Mass/Vol] 10.3 g/dL Normal 10-[address] [facility] Comment on above: Order Comment: Abundiou s: M Minimal Draw: Y Performed By: #### L 500.54281, L500.10705 #### [facility] [address] [place] [address] IONIZED CA 1.07 MMOL/L Low 1.13-1.[address] [facility] Comment on above: Order Comment: Abundiou s: M Minimal Draw: Y Performed By: #### L 500.96359, L500.74974 #### [facility] [address] [place] [address] LACTATE BLOOD 1.58 MMOL/L Normal 0.40-2.[address] [facility] Comment on above: Order Comment: Abundiou s: M Minimal Draw: Y Performed By: #### L 500.30508, L500.44455 #### [facility] [address] [place], [place] [id number] LITERFLOW 40.00 L/M Normal [facility] Comment on above: Order Comment: Maciel s: M Minimal Draw: Y Performed By: #### L 500.04980, L500.58814 #### [facility] [address] [place], [place] [address] Oxygen saturation in Blood 89 % Normal [facility] Comment on above: Order Comment: Maciel s: M Minimal Draw: Y Performed By: #### L 500.67562, L500.03938 #### [facility] [address] [place] [address] Potassium [Moles/Vol] 3.3 mmol/L Low 3.5-5.0 [facility] Comment on above: Order Comment: Maciel s: M Minimal Draw: Y Performed By: #### L 500.23837, L500.77855 #### [facility] [address] [place], [place] [address] SAMPLE SITE R RADIAL Normal [facility] Comment on above: Order Comment: Maciel s: M Minimal Draw: Y Performed By: #### L 500.17734, L500.50167 #### [facility] [address] [place] [address] SAMPLE TYPE ARTERIAL Normal [facility] Comment on above: Order Comment: Maciel s: M Minimal Draw: Y Performed By: #### L 500.33041, L500.08621 #### [facility] [address] [place] [address] Sodium [Moles/Vol] 151 mmol/L High 136-[address] [facility] Comment on above: Order Comment: Campu s: M Minimal Draw: Y Performed By: #### L 500.21498, L500.25252 #### [facility] [address] [place] [address] BMPon 08-09-2020 Anion gap [Moles/Vol] 8 mmol/L Normal 5-16 [facility] Comment on above: Order Comment: Campu s: M Performed By: #### L 500.23421, L500.93073, L500.32847, L500.14700 ####[facility] [id number] [place], [place] [address]Qk# [phone] Calcium [Mass/Vol] 8.1 mg/dL Low 8.5-10.[address] [facility] Comment on above: Order Comment: Campu s: M Result Comment: NOTE NEW NORMAL RANGE DUE TO REAGENT CHANGE Performed By: #### L 500.25823, L500.16887, L500.70383, L500.66604 ####[facility] [id number] [place], [place] [address]Zp# [phone] Chloride [Moles/Vol] 116 mmol/L High 98-107 [facility] Comment on above: Order Comment: Campu s: M Performed By: #### L 500.21600, L500.47975, L500.04560, L500.93276 ####[facility] [id number] [place], [place] [address]Hv# [phone] CO2 [Moles/Vol] 27.0 mmol/L Normal [facility] Comment on above: Order Comment: Campu s: M Performed By: #### L 500.68085, L500.33585, L500.07814, L500.63475 ####[facility] [id number] [place], [place] [address]Cn# [phone] Creatinine [Mass/Vol] 0.76 mg/dL Normal 0.510-0.950 [facility] Comment on above: Order Comment: Maciel s: M Result Comment: Geraldine ents receiving either N-Acetylcysteine (NAC) or Metamizole prior to venipuncture, may have falsely depressed results. Performed By: #### L 500.95129, L500.30493, L500.57241, L500.41694 ####[facility] [id number] [place], [place] [address]Xd# [phone] Glucose [Mass/Vol] 150 mg/dL High 70-[address] [facility] Comment on above: Order Comment: Maciel s: M Result Comment: 70-1 00- Normal Fasting; 100-125 Impaired Fasting; greater than 126 on more than one result- Diabetes. ADA guidelines. Results may be falsely elevated after the administration of Sulfapyridine. Results may be falsely depressed after the administration of Sulfasalazine. Performed By: #### L 500.49507, L500.10811, L500.04488, L500.20069 ####[facility] [id number] [place], [place] [address]Zt# [phone] Potassium [Moles/Vol] 3.8 mmol/L Normal 3.5-5.1 [facility] Comment on above: Order Comment: Maciel s: M Performed By: #### L 500.69190, L500.10945, L500.26392, L500.65173 ####[facility] [id number] [place], [place] [address]Cv# [phone] Sodium [Moles/Vol] 151 mmol/L High 136-[address] [facility] Comment on above: Order Comment: Maciel s: M Performed By: #### L 500.94982, L500.43369, L500.72061, L500.10874 ####[facility] [id number] [place], [place] [address]Gp# [phone] Urea nitrogen [Mass/Vol] 21 mg/dL Normal 7-[address] [facility] Comment on above: Order Comment: Campu s: M Performed By: #### L 500.10953, L500.53745, L500.64255, L500.35306 ####[facility] [id number] [place], [place] [address]Tx# [phone] Urea nitrogen/Creatinine [Mass ratio] 27 mg/mg High 15-[address] [facility] Comment on above: Order Comment: Campu s: M Performed By: #### L 500.33670, L500.18382, L500.33586, L500.76125 ####[facility] [id number] [place], [place] [address]Fi# [phone] CBC W/DIFFon 08-09-2020 BAND ABS 2.87 K/CU MM Normal [facility] Comment on above: Order Comment: Campu s: M What is the source? URINE Performed By: #### M 150.31539, M150.58745 #### [facility] [address] [place] [address] Band form neutrophils/100 WBC (Bld) 15.0 % High 0-[address] [facility] Comment on above: Order Comment: Campu s: M What is the source? URINE Performed By: #### M 150.06085, M150.01528 #### [facility] [address] [place] [address] BASO ABS 0.19 K/CU MM Normal 0-0.[address] [facility] Comment on above: Order Comment: Campu s: M What is the source? URINE Performed By: #### M 150.43071, M150.37676 #### [facility] [place] [address] Basophils/100 WBC (Bld) 1.0 % Normal 0-2 [facility] Comment on above: Order Comment: Campu s: M What is the source? URINE Performed By: #### M 150.56133, M150.80973 #### [facility] [address] [place] [address] 19794 EOS ABS 0.38 K/CU MM Normal 0-0.[address] [facility] Comment on above: Order Comment: Campu s: M What is the source? URINE Performed By: #### M 150.45582, M150.57304 #### [facility] [address] [place] [address] Eosinophils/100 WBC (Bld) 2.0 % Normal 0-[address] [facility] Comment on above: Order Comment: Campu s: M What is the source? URINE Performed By: #### M 150.71191, M150.88654 #### [facility] [address] [place] [address] HYPO 1+ Normal [facility] Comment on above: Order Comment: Campu s: M What is the source? URINE Performed By: #### M 150.37816, M150.97646 #### [facility] [address] [place] [address] Lymphocytes (Bld) [#/Vol] 0.57 K/CU MM Low 0.9-4.[address] [facility] Comment on above: Order Comment: Campu s: M What is the source? URINE Performed By: #### M 150.12463, M150.40739 #### [facility] [address] [place], [place] [address] Lymphocytes/100 WBC (Bld) 3.0 % Low 20-[address] [facility] Comment on above: Order Comment: Campu s: M What is the source? URINE Performed By: #### M 150.87465, M150.12563 #### [facility] [address] [place], [place] [address] META % 1.0 % Normal [facility] Comment on above: Order Comment: Campu s: M What is the source? URINE Performed By: #### M 150.98262, M150.38829 #### [facility] [address] [place] [address] META ABS 0.19 K/CU MM Normal [facility] Comment on above: Order Comment: Campu s: M What is the source? URINE Performed By: #### M 150.54119, M150.49246 #### [facility] [address] [place] [address] MONO ABS 2.48 K/CU MM High 0.1-1.[address] [facility] Comment on above: Order Comment: Campu s: M What is the source? URINE Performed By: #### M 150.26795, M150.49522 #### [facility] [place] [address] Monocytes/100 WBC (Bld) 13.0 % High 2-10 [facility] Comment on above: Order Comment: Campu s: M What is the source? URINE Performed By: #### M 150.08748, M150.36943 #### [facility] [address] [place] [address] MYELO ABS 0.19 K/CU MM Normal [facility] Comment on above: Order Comment: Campu s: M What is the source? URINE Performed By: #### M 150.59536, M150.58645 #### [facility] [place] [address] MYELOCYTE % 1.0 % Normal [facility] Comment on above: Order Comment: Campu s: M What is the source? URINE Performed By: #### M 150.75268, M150.02099 #### [facility] [place] [address] NEUTROPHIL ABS 12.22 K/CU MM High 2.0-8.[address] [facility] Comment on above: Order Comment: Campu s: M What is the source? URINE Performed By: #### M 150.16874, M150.26022 #### [facility] [address] [place] [address] Neutrophils/100 WBC (Bld) 64.0 % Normal 45-[address] [facility] Comment on above: Order Comment: Campu s: M What is the source? URINE Performed By: #### M 150.42287, M150.90362 #### [facility] [place] [address] Platelets (Bld) [#/Vol] ADEQUATE Normal M [facility] Comment on above: Order Comment: Campu s: M What is the source? URINE Performed By: #### M 150.99060, M150.71848 #### [facility] [address] [place] [address] POLY 1+ Normal [facility] Comment on above: Order Comment: Campu s: M What is the source? URINE Performed By: #### M 150.46049, M150.80453 #### [facility] [address] [place] [address] Erythrocyte distribution width (RBC) [Ratio] 15.3 % High 11-14.[address] [facility] Comment on above: Order Comment: Campu s: M What is the source? URINE Performed By: #### M 150.51456, M150.16425 #### [facility] [place] [address] Hematocrit (Bld) [Volume fraction] 27.9 % Low 35.0-47.[address] [facility] Comment on above: Order Comment: Campu s: M What is the source? URINE Performed By: #### M 150.95185, M150.72855 #### [facility] [address] [place] [address] Hemoglobin (Bld) [Mass/Vol] 8.8 g/dL Low 11.5-15.[address] [facility] Comment on above: Order Comment: Campu s: M What is the source? URINE Performed By: #### M 150.78442, M150.46414 #### [facility] [place] [address] MCHC (RBC) [Mass/Vol] 31.5 g/dL Low 32.0-36.0 [facility] Comment on above: Order Comment: Campu s: M What is the source? URINE Performed By: #### M 150.21251, M150.28859 #### [facility] [address] [place], [place] [address] MCV (RBC) [Entitic vol] 93.6 fL Normal 80.0-99.0 [facility] Comment on above: Order Comment: Campu s: M What is the source? URINE Performed By: #### M 150.28669, M150.08872 #### [facility] [address] [place], [place] [address] Nucleated RBC/100 WBC (Bld) [Ratio] 0.0 % Normal Less than [address] [facility] Comment on above: Order Comment: Campu s: M What is the source? URINE Performed By: #### M 150.55536, M150.07841 #### [facility] [address] [place] [address] Platelet mean volume (Bld) [Entitic vol] 11.6 fL Normal 9.4-12.[address] [facility] Comment on above: Order Comment: Campu s: M What is the source? URINE Performed By: #### M 150.14731, M150.00546 #### [facility] [address] [place] [address] Platelets (Bld) [#/Vol] 189 K/CU MM Normal 150-[address] [facility] Comment on above: Order Comment: Campu s: M What is the source? URINE Performed By: #### M 150.57279, M150.61149 #### [facility] [address] [place] [address] 02155 RBC (Bld) [#/Vol] 2.98 M/CU MM Low 3.90-5.[address] [facility] Comment on above: Order Comment: Campu s: M What is the source? URINE Performed By: #### M 150.57633, M150.63746 #### [facility] [place] [address] WBC (Bld) [#/Vol] 19.1 K/CUMM High 4.5-11.[address] [facility] Comment on above: Order Comment: Campu s: M What is the source? URINE Performed By: #### M 150.81306, M150.23151 #### [facility] [address] [place] [address] 52810 GFR ESTon 08-09-2020 IF AMER Greater than 60 Normal [facility] Comment on above: Order Comment: Campu s: M Performed By: #### L 500.11601, L500.44011, L500.88628, L500.41512 ####[facility] [id number] [place] [address] 723[address]De# [phone] IF non-AFR AMER Greater than 60 Normal [facility] Comment on above: Order Comment: Campu s: M Performed By: #### L 500.72252, L500.97262, L500.74305, L500.14301 ####[facility] [id number] [place] [address] 39010Ys# [phone] IONIZED CAon 08-09-2020 IONIZED CA 1.12 MMOL/L Low 1.16-1.[address] [facility] Comment on above: Order Comment: Campu s: M Performed By: #### L 550.99735 ####[facility] [id number] [place] [address] 22564Xe# [phone] MAGNESIUMon 08-09-2020 Magnesium [Mass/Vol] 1.6 MG/CL Normal 1.6-2.6 [facility] Comment on above: Order Comment: Campu s: M Performed By: #### L 500.67928, L500.55403, L500.66343, L500.44554 ####[facility] [id number] [place], [place] [address]Ai# [phone] PHOSon 08-09-2020 Phosphate [Mass/Vol] 1.70 mg/dL Low 2.5-4.9 [facility] Comment on above: Order Comment: Campu s: M Result Comment: Elev ated m-protein (paraprotein) levels in the serum may be exhibited in patients with monoclonal gammopathies, causing falsely elevated inorganic phosphorus results. Performed By: #### L 500.06187, L500.07890, L500.04387, L500.48393 ####[facility] [id number] [place], [place] [address]Ih# [phone] PROG [facility] 08-09-2020 PROG [facility] Patient Name: ANDRE BLANCA [address] [facility] Date of : [address] [address] Unit Number: [id number] Progress Note-Hospitalist Patient Status: ADM IN Attending [...] confusion noted Diagnostic Data: Lab 24hr ([facility] 08/09/20444: Ionized Calcium 1.12 L 08/09/20 0445: [Embedded [...] Time Delia Adam MD Verified/Reviewed by 08/09/[address] [place] [address] Progress Note-Hospitalist [facility] GZoran 08-09-2020 PROG.[facility] Patient Name: ANDRE BLANCA [address] Date of : [address] [place], [place] [address] Unit Number: [id number] Progress Note-Jive Developer Patient Status: ADM IN Attending Doctor: Marta Horvath DO Service Date: 08/09/20 1042 Progress Note-Jive Developer Subjective Subjective: still confused , breathing appears better, but still on high flow O2 Objective Vital Signs: Vital Signs (Last) Result Date Time Pulse Ox 93 08/09 0600 B/P 121/56 08/09 0600 B/P Mean 80 08/09 600 O2 Delivery HIGH FLOW NC 08/09 600 O2 Flow Rate 50L60% 08/09 600 Pulse 89 08/09 0600 Resp 19 08/09 06 Temp 100.6 08/09 0325 IandO 24 Hour [...] TUBE 0850 Carbamazepine 200 MG TIDWM 08/05 08 AC 08/09 (TEGRETOL TAB) TUBE 0849 Clopidogrel [...] TUBE LIQUID UDC) Melatonin 5 MG QHS 08/080 AC 08/08 (MELATONIN TAB) TUBE 212 Menthol/Methyl 1 APPL BIDPRN PRN 07/28 0030 AC 07/29 Salicylate TP 2217 (MIHIR ALVAREZ T.CREAM) Ondansetron HCl 4 MG BIDPRN PRN 08/04 1930 AC (ZOFRAN TAB) TUBE Ondansetron HCl 4 MG Q6HPRN PRN 07/27 2100 AC 08/04 (ZOFRAN VIAL) IV 212 Phenobarbital Sodium 100 MG TIDPRN PRN 08/09 0100 AC 08/09 (PHENOBARBITAL VIAL) IV 0051 Pravastatin Sodium 40 MG QHS 08/040 AC 08/08 (PRAVACHOL TAB) TUBE 204 Pregabalin 150 MG BID 08/04 2100 AC [...] CVA, and Former Tobacco Abuse presented to [facility] emergency department on 07/27 secondary to Syncope [...] Morris Alonso MD Verified/Reviewed by 08/09/20 1046 [facility] Progress Note-Jive Developer [facility] [employer] Progress Note [facility] Speech/Language Pathology Inpatient Missed Visit Note Location: [...] contact the Acute Therapy Department at extension [phone] Signed by: LIZABETH VENEGAS 08/09/2020 10:55:37 [facility] PATIENT NAME: ANDRE BLANCA [facility] Dr. Andrea MEDICAL REC #: [id number] [place] [address] ADMIT DATE: 07/27/20 SERVICE DATE: 08/09/20 Speech-Language Progress Note ATTENDING PHY: Marta Horvath DO [facility] 08-08-2020 Anion gap [Moles/Vol] 11 mmol/L Normal 5-16 [facility] Comment on above: Order Comment: Maciel s: M Minimal Draw: Y Performed By: #### L 500.01012, L500.92671 #### [facility] [address] [place], [place] [address] Calcium [Mass/Vol] 8.0 mg/dL Low 8.5-10.[address] [facility] Comment on above: Order Comment: Maciel s: M Minimal Draw: Y Result Comment: NOTE NEW NORMAL RANGE DUE TO REAGENT CHANGE Performed By: #### L 500.90462, L500.86204 #### [facility] [address] [place] [address] Chloride [Moles/Vol] 114 mmol/L High 98-107 [facility] Comment on above: Order Comment: Maciel s: M Minimal Draw: Y Performed By: #### L 500.75329, L500.54480 #### [facility] [address] [place] [address] CO2 [Moles/Vol] 24.0 mmol/L Normal 21-[address] [facility] Comment on above: Order Comment: Maciel s: M Minimal Draw: Y Performed By: #### L 500.93098, L500.59716 #### [facility] [address] [place], [place] [address] Creatinine [Mass/Vol] 0.76 mg/dL Normal 0.510-0.950 [facility] Comment on above: Order Comment: Maciel s: M Minimal Draw: Y Result Comment: Geraldine ents receiving either N-Acetylcysteine (NAC) or Metamizole prior to venipuncture, may have falsely depressed results. Performed By: #### L 500.18626, L500.72173 #### [facility] [address] [place] [address] Glucose [Mass/Vol] 136 mg/dL High 70-[address] [facility] Comment on above: Order Comment: Maciel s: M Minimal Draw: Y Result Comment: 70-1 00- Normal Fasting; 100-125 Impaired Fasting; greater than 126 on more than one result- Diabetes. ADA guidelines. Results may be falsely elevated after the administration of Sulfapyridine. Results may be falsely depressed after the administration of Sulfasalazine. Performed By: #### L 500.38511, L500.56049 #### [facility] [address] [place] [address] Potassium [Moles/Vol] 3.4 mmol/L Low 3.5-5.1 [facility] Comment on above: Order Comment: Campu s: M Minimal Draw: Y Performed By: #### L 500.33387, L500.76087 #### [facility] [address] [place] [address] Sodium [Moles/Vol] 149 mmol/L High 136-[address] [facility] Comment on above: Order Comment: Campu s: M Minimal Draw: Y Performed By: #### L 500.84156, L500.53946 #### [facility] [address] [place] [address] Urea nitrogen [Mass/Vol] 20 mg/dL Normal 7-[address] [facility] Comment on above: Order Comment: Campu s: M Minimal Draw: Y Performed By: #### L 500.06836, L500.48297 #### [facility] [address] [place] [address] Urea nitrogen/Creatinine [Mass ratio] 26 mg/mg High 15-[address] [facility] Comment on above: Order Comment: Campu s: M Minimal Draw: Y Performed By: #### L 500.62848, L500.59601 #### [facility] [address] [place] [address] CBC W/DIFFon 08-08-2020 BASO ABS 0.10 K/CU MM Normal 0-0.[address] [facility] Comment on above: Order Comment: Campu s: M Performed By: #### L 200.95270 #### [facility] [address] [place] [address] Basophils/100 WBC (Bld) 0.4 % Normal 0-2 [facility] Comment on above: Order Comment: Campu s: M Performed By: #### L 200.44914 #### [facility] [address] [place] [address] EOS ABS 0.10 K/CU MM Normal 0-0.[address] [facility] Comment on above: Order Comment: Campu s: M Performed By: #### L 200.41404 #### [facility] [address] [place] [address] Eosinophils/100 WBC (Bld) 0.5 % Normal 0-[address] [facility] Comment on above: Order Comment: Campu s: M Performed By: #### L 200.26427 #### [facility] [address] [place] [address] Erythrocyte distribution width (RBC) [Ratio] 14.9 % High 11-14.[address] [facility] Comment on above: Order Comment: Campu s: M Performed By: #### L 200.44679 #### [facility] [address] [place] [address] Hematocrit (Bld) [Volume fraction] 27.8 % Low 35.0-47.[address] [facility] Comment on above: Order Comment: Campu s: M Performed By: #### L 200.48142 #### [facility] [address] [place] [address] Hemoglobin (Bld) [Mass/Vol] 8.7 g/dL Low 11.5-15.[address] [facility] Comment on above: Order Comment: Campu s: M Result Comment: Repe ated and verified. Performed By: #### L 200.10668 #### [facility] [address] [place] [address] IMMATR GRAN ABS 0.90 K/CU MM Normal Less than [address] [facility] Comment on above: Order Comment: Campu s: M Performed By: #### L 200.16513 #### [facility] [place] [address] IMMATURE GRAN % 4.6 % Normal Less than [address] [facility] Comment on above: Order Comment: Campu s: M Performed By: #### L 200.84388 #### [facility] [address] [place] [address] Lymphocytes (Bld) [#/Vol] 1.20 K/CU MM Normal 0.9-4.[address] [facility] Comment on above: Order Comment: Campu s: M Performed By: #### L 200.76116 #### [facility] [address] [place] [address] Lymphocytes/100 WBC (Bld) 6.2 % Low 20-[address] [facility] Comment on above: Order Comment: Campu s: M Performed By: #### L 200.22033 #### [facility] [address] [place] [address] MCHC (RBC) [Mass/Vol] 31.3 g/dL Low 32.0-36.0 [facility] Comment on above: Order Comment: Campu s: M Performed By: #### L 200.67321 #### [facility] [address] [place] [address] MCV (RBC) [Entitic vol] 94.6 fL Normal 80.0-99.0 [facility] Comment on above: Order Comment: Campu s: M Performed By: #### L 200.95768 #### [facility] [address] [place] [address] MONO ABS 1.50 K/CU MM High 0.1-1.[address] [facility] Comment on above: Order Comment: Campu s: M Performed By: #### L 200.62445 #### [facility] [place] [address] Monocytes/100 WBC (Bld) 7.9 % Normal 2-10 M [facility] Comment on above: Order Comment: Campu s: M Performed By: #### L 200.99088 #### [facility] [address] [place] [address] NEUTROPHIL ABS 15.00 K/CU MM High 2.0-8.[address] [facility] Comment on above: Order Comment: Campu s: M Performed By: #### L 200.35236 #### [facility] [address] [place] [address] Neutrophils/100 WBC (Bld) 80.4 % High 45-[address] [facility] Comment on above: Order Comment: Campu s: M Performed By: #### L 200.17352 #### [facility] [address] [place] [address] Nucleated RBC/100 WBC (Bld) [Ratio] 0.0 % Normal Less than [address] [facility] Comment on above: Order Comment: Campu s: M Performed By: #### L 200.81235 #### [facility] [address] [place] [address] Platelet mean volume (Bld) [Entitic vol] 11.4 fL Normal 9.4-12.[address] [facility] Comment on above: Order Comment: Campu s: M Performed By: #### L 200.84595 #### [facility] [address] [place] [address] Platelets (Bld) [#/Vol] 198 K/CU MM Normal 150-[address] [facility] Comment on above: Order Comment: Campu s: M Performed By: #### L 200.57193 #### [facility] [address] [place] [address] RBC (Bld) [#/Vol] 2.94 M/CU MM Low 3.90-5.[address] [facility] Comment on above: Order Comment: Abundiou s: M Performed By: #### L 200.96515 #### [facility] [address] [place] [address] WBC (Bld) [#/Vol] 18.7 K/CUMM High 4.5-11.[address] [facility] Comment on above: Order Comment: Abundiou s: M Performed By: #### L .99056 #### [facility] [address] [place] [address] DIET.[facility] 08-08-2020 DIET.[facility] Patient Name: ANDRE BLANCA [address] [place] [address] Date of : [address] [address] Unit Number: [id number] Nutrition Assessments Patient Status: ADM IN Attending [...] History Pt was following a regular diet [employer] and was not using any oral nutrition [...] 235.7# Weight this admission ranged: 226.6-235.7# Per [facility] Weight History: 02/2019: 223.6-234.5# BMI Criteria: 30-39.9 [...] RD LD Verified/Reviewed by 08/08/[address] [facility] Nutrition Assessments Normal [facility] GFR ESTon 08-08-2020 IF AMER Greater than 60 Normal [facility] Comment on above: Order Comment: Maciel s: M Minimal Draw: Y Performed By: #### L 500.22470, L500.73930 #### [facility] [address] [place], [place] [address] IF non-AFR AMER Greater than 60 [facility] Comment on above: Order Comment: aMciel s: Ramiro Minimal Draw: Y Performed By: #### L 500.20391, L500.57562 #### [facility] [address] [place] [address] PROG [facility] 08-08-2020 PROG [facility] Patient Name: ANDRE BLANCA [address] [place] [address] Date of : [address] [address] Unit Number: [id number] Progress Note-Hospitalist Patient Status: ADM IN Attending Doctor: Marta Horvath DO Service Date: 08/08/20 152 Chief Complaint Chief Complaint Syncope Subjective S: (2 ROS minimum) Patient was thought to be a poor historian. Knew her name and that she was in [place] but could not tell me that she was at a hospital or what year it was. Some slight complaints of some shortness of breath. Denied any other acute problems. Denied fever and chills Objective (ROS) Nursing Vitals Vital Signs (Last) Result Date Time Pulse Ox 92% 08/08 152 O2 Delivery HIGH FLOW NC 08/08 152 O2 Flow Rate 55% 08/08 1525 B/P 96/54 08/08 1200 B/P Mean 71 12/26 1200 Temp 99.3 08/08 1200 Pulse 63 [...] confusion noted Diagnostic Data: [facility] 08/08/20 0840: Urine Color Yellow, Urine Appearance Clear, Urine pH 5.0, Ur Specific [place] 1.026, Urine Protein 100, Urine Glucose (UA) [...] Appearance Cancelled, Urine pH Cancelled, Ur Specific [place] Cancelled, Urine Protein Cancelled, Urine Glucose (UA) [...] Delia Adam MD Verified/Reviewed by 08/08/20 1542 [facility] Progress Note-Hospitalist [facility] PROG.Rocael 08-08-2020 PROG.[facility] Patient Name: ANDRE BLANCA [address] Date of : [address] [address] Unit Number: [id number] Progress Note-Jive Developer Patient Status: ADM IN Attending Doctor: Marta Horvath DO Service Date: 08/08/20 0949 Progress Note-Jive Developer Subjective Subjective: still w sig encephalopathy requiring precedex still requiring high flow O2 Objective Vital Signs: Vital Signs (Last) Result Date Time Pulse Ox 92 08/08 730 O2 Delivery HIGH FLOW NC 08/08 730 O2 Flow Rate 55% 08/08 730 Temp 100.1 08/08 0648 B/P 140/69 08/08 0600 B/P Mean 99 08/08 600 Pulse 112 12/26 0600 Resp 43 08/08 06 IandO 24 [...] Sodium/ 3 GM Q12H@18 08/04 1800 AC 08/08 Sulbactam Sodium IV 08/11 1759 0530 (UNASYN VIAL) Sodium Chloride 100 ML (Sodium Chloride 0.9%) Budesonide 0.5 MG BID 08/04 2100 AC 08/08 (PULMOCORT 0.5MG/2ML INH 0746 INH.NEB) Buspirone HCl 20 MG TIDWM 08/05 08 AC 08/08 (BUSPAR TAB) TUBE 0834 Carbamazepine [...] D.SYR.PF) Levothyroxine Sodium 0.125 MG QDAYAC 08/05 07 AC 08/08 (SYNTHROID TAB) TUBE 0530 Loperamide HCl 2 MG PRN PRN 08/04 193 AC (IMODIUM AD ORAL TUBE LIQUID UDC) Melatonin 3 MG QHS 08/04 2200 AC 08/07 (MELATONIN TAB) TUBE 213 Menthol/Methyl 1 APPL BIDPRN PRN 07/28 0030 AC 07/29 Salicylate TP 2217 (MIHIR ALVAREZ T.CREAM) Ondansetron HCl 4 MG BIDPRN PRN 08/04 1930 AC (ZOFRAN TAB) TUBE Ondansetron HCl 4 MG Q6HPRN PRN 07/27 2100 AC 08/04 (ZOFRAN VIAL) IV 212 Pravastatin Sodium 40 MG QHS 08/04 2200 AC 08/07 (PRAVACHOL TAB) TUBE 2137 Pregabalin 150 MG BID 08/04 2100 AC 08/08 (LYRICA CAP) TUBE 0833 Promethazine HCl 6.25 MG Q6HPRN PRN 08/02 1830 AC 08/03 (PHENERGAN VIAL IV 1003 (TXI)) Sodium Chloride 50 ML (Sodium Chloride 0.9%) Quetiapine Fumarate 50 MG QHS 08/07 2200 AC 08/07 (SEROQUEL TAB) TUBE 2137 Sodium Chloride See Dose Q24H 08/06 0900 [...] Appearance Clear, Urine pH 5.0, Ur Specific [place] 1.026, Urine Protein 100, Urine Glucose (UA) [...] CVA, and Former Tobacco Abuse presented to [facility] emergency department on 07/27 secondary to Syncope [...] Morris Alonso MD Verified/Reviewed by 08/08/20 0954 [facility] Progress Note-Jive Developer Normal [facility] RESP/SPUT CULTon 08-08-2020 RESP/SPUT CULT This report has been cancelled [facility] Comment on above: Order Comment: Cance lled via OE: Unable to Obtain Test UA COMPLETEon 08-08-2020 UA LK ESTERASE [address] [facility] Comment on above: Order Comment: Maciel s: M What is the source? URINE Performed By: #### M 150.78745, M150.01013 #### [facility] [address] [place] [address] UA WBC 36 WBC/HPF High 0-[address] [facility] Comment on above: Order Comment: Campu s: M What is the source? URINE Performed By: #### M 150.04744, M150.68199 #### [facility] [address] [place] [address] Color (U) Yellow Normal [facility] Comment on above: Order Comment: Campu s: M What is the source? URINE Performed By: #### M 150.26163, M150.90944 #### [facility] [address] [place] [address] Glucose (U) [Mass/Vol] 50 mg/dL Normal NORMAL [facility] Comment on above: Order Comment: Campu s: M What is the source? URINE Performed By: #### M 150.84413, M150.34234 #### [facility] [place] [address] HYALINE CAST 1 /LPF Normal 0-[address] [facility] Comment on above: Order Comment: Campu s: M What is the source? URINE Performed By: #### M 150.94674, M150.76028 #### [facility] [address] [place] [address] Mucus Ql (Urine sed) TRACE Normal NEGATIVE [facility] Comment on above: Order Comment: Campu s: M What is the source? URINE Performed By: #### M 150.20008, M150.07598 #### [facility] [address] [place] [address] SQUAMOUS EPIS 0 EPI/HPF Normal 0-[address] [facility] Comment on above: Order Comment: Campu s: M What is the source? URINE Performed By: #### M 150.28971, M150.88017 #### [facility] [address] [place] [address] UA APPEARANCE Clear Normal CLEAR [facility] Comment on above: Order Comment: Campu s: M What is the source? URINE Performed By: #### M 150.29621, M150.52421 #### [facility] [address] [place] [address] UA BACTERIA NONE Normal NONE [facility] Comment on above: Order Comment: Campu s: M What is the source? URINE Performed By: #### M 150.25852, M150.60628 #### [facility] [address] [place] [address] UA BILIRUBIN Negative Normal NEGATIVE [facility] Comment on above: Order Comment: Campu s: M What is the source? URINE Performed By: #### M 150.92735, M150.28764 #### [facility] [place] [address] UA BLOOD LARGE Normal NEGATIVE [facility] Comment on above: Order Comment: Campu s: M What is the source? URINE Performed By: #### M 150.57346, M150.62770 #### [facility] [address] [place] [address] UA KETONE [address] [facility] Comment on above: Order Comment: Campu s: M What is the source? URINE Performed By: #### M 150.18936, M150.91603 #### [facility] [address] [place] [address] UA NITRITE Negative Normal NEGATIVE [facility] Comment on above: Order Comment: Campu s: M What is the source? URINE Performed By: #### M 150.60179, M150.03738 #### [facility] [address] [place] [address] UA PH 5.0 Normal 5-[address] [facility] Comment on above: Order Comment: Campu s: M What is the source? URINE Performed By: #### M 150.19827, M150.67773 #### [facility] [place] [address] UA PROTEIN [address] [facility] Comment on above: Order Comment: Campu s: M What is the source? URINE Performed By: #### M 150.96949, M150.10092 #### [facility] [address] [place] [address] UA RBC 432 RBC/HPF High 0-[address] [facility] Comment on above: Order Comment: Campu s: M What is the source? URINE Performed By: #### M 150.70947, M150.25584 #### [facility] [address] [place] [address] UA SPEC GRAV 1.026 Normal 1.005-1.[address] [facility] Comment on above: Order Comment: Campu s: M What is the source? URINE Performed By: #### M 150.30671, M150.50249 #### [facility] [address] [place] [address] UA UROBILINOGEN Negative Normal NORMAL [facility] Comment on above: Order Comment: Campu s: M What is the source? URINE Performed By: #### M 150.86711, M150.94510 #### [facility] [address] [place] [address] BMPon 08-07-2020 Anion gap [Moles/Vol] 9 mmol/L Normal 5-16 [facility] Comment on above: Order Comment: Campu s: MMinimal Draw: Y Performed By: #### L 500.29675, L500.37544 ####[facility] [id number] [place], [place] [address]Ej# [phone] Calcium [Mass/Vol] 7.6 mg/dL Low 8.5-10.[address] [facility] Comment on above: Order Comment: Campu s: MMinimal Draw: Y Result Comment: NOTE NEW NORMAL RANGE DUE TO REAGENT CHANGE Performed By: #### L 500.00478, L500.94615 ####[facility] [id number] [place], [place] [address]Lw# [phone] Chloride [Moles/Vol] 110 mmol/L High 98-107 [facility] [place] Comment on above: Order Comment: Campu s: MMinimal Draw: Y Performed By: #### L 500.15774, L500.16903 ####[facility] [id number] [place], [place] [address]Xx# [phone] CO2 [Moles/Vol] 26.0 mmol/L Normal 21-32 [facility] Comment on above: Order Comment: Campu s: MMinimal Draw: Y Performed By: #### L 500.93142, L5.35300 ####[facility] [facility] [id number] [place], [place] [address]Nk# [phone] Creatinine [Mass/Vol] 0.81 mg/dL Normal 0.510-0.950 [facility] [place] Comment on above: Order Comment: Campu s: MMinimal Draw: Y Result Comment: Geraldine ents receiving either N-Acetylcysteine (NAC) or Metamizole prior to venipuncture, may have falsely depressed results. Performed By: #### L 500.61492, L5.62616 ####[facility] [id number] [place], [place] [address]Gw# [phone] Glucose [Mass/Vol] 148 mg/dL High 70-[address] [facility] Comment on above: Order Comment: Campu s: MMinimal Draw: Y Result Comment: 70-1 00- Normal Fasting; 100-125 Impaired Fasting; greater than 126 on more than one result- Diabetes. ADA guidelines. Results may be falsely elevated after the administration of Sulfapyridine. Results may be falsely depressed after the administration of Sulfasalazine. Performed By: #### L 500.33112, L5.07085 ####[facility] [id number] [place], [place] [address]Dj# [phone] Potassium [Moles/Vol] 3.4 mmol/L Low 3.5-5.1 [facility] [place] Comment on above: Order Comment: Campu s: MMinimal Draw: Y Performed By: #### L 500.00365, L500.74836 ####[facility] [id number] [place], [place] [address]Nn# [phone] Sodium [Moles/Vol] 145 mmol/L Normal 136-145 [facility] Comment on above: Order Comment: Campu s: MMinimal Draw: Y Performed By: #### L 500.14737, L500.43739 ####[facility] [id number] [place] [address]Kj# [phone] Urea nitrogen [Mass/Vol] 21 mg/dL Normal 7-26 [facility] Comment on above: Order Comment: Campu s: MMinimal Draw: Y Performed By: #### L 500.76213, L500.48235 ####[facility] [id number] [place] [address]Yt# [phone] Urea nitrogen/Creatinine [Mass ratio] 26 mg/mg High 15-24 [facility] Comment on above: Order Comment: Campu s: MMinimal Draw: Y Performed By: #### L 500.49373, L500.03534 ####[facility] [id number] [place] [address]Fq# [phone] GFR ESTon 08-07-2020 IF AMER Greater than [address] [facility] [place] Comment on above: Order Comment: Campu s: MMinimal Draw: Y Performed By: #### L 500.84517, L500.80847 ####[facility] [id number] [place] [address]Ey# [phone] IF non-AFR AMER Greater than [address] [facility] [place] Comment on above: Order Comment: Campu s: MMinimal Draw: Y Performed By: #### L 500.97325, L500.63286 ####[facility] [id number] [place], [place] [address]Ms# [phone] PROG IMSon 08-07-2020 PROG [facility] Patient Name: ANDRE BLANCA [address] Date of : [address] [place] [address] Unit Number: [id number] Progress Note-Hospitalist Patient Status: ADM IN Attending Doctor: Marta Horvath DO Service Date: 08/07/20 1534 Chief Complaint Chief Complaint Syncope Patient is a 70-year-old female with past medical history significant for CVA, hypothyroidism, COPD not on home oxygen, recurrent syncopal episodes presented to [facility] after a syncopal episode. Patient also [...] rash noticed. Diagnostic Data: Lab [facility]hr [facility] 08/07/20 0450: [Embedded Image Not Available] Anion [...] Gloria Saxena MD Verified/Reviewed by 08/07/20 1537 [facility] Progress Note-Hospitalist [facility] PROG.Rocael 08-07-2020 PROG.[facility] Patient Name: ANDRE BLANCA [address] Date of : [address] [place] [address] Unit Number: [id number] Progress Note-Jive Developer Patient Status: ADM IN Attending Doctor: Marta Horvath DO Service Date: 08/07/20 0857 Progress Note-Jive Developer Subjective Subjective: still confused, pulling out NGs still on high flow O2 Objective Vital Signs: Vital Signs (Last) Result Date Time Pulse Ox 97 08/07 652 B/P 127/56 08/07 652 B/P Mean 81 08/07 652 O2 Delivery HIGH FLOW NC 08/07 652 O2 Flow Rate 60% 08/07 652 Pulse 71 08/07 652 Resp 18 08/07 652 Temp 98.6 08/07 602 IandO 24 Hour Summary 08/07 0000 Intake [...] AC 08/07 Sulbactam Sodium IV 08/11 1759 9758 (UNASYN VIAL) Sodium Chloride 100 ML (Sodium Chloride 0.9%) Budesonide 0.5 MG BID 08/04 2100 AC 08/07 (PULMOCORT 0.5MG/2ML INH 0717 INH.NEB) Buspirone HCl 20 MG TIDWM 08/05 0800 AC 08/07 (BUSPAR TAB) TUBE 0844 Carbamazepine 200 MG TIDWM 08/05 0800 AC 08/07 (TEGRETOL TAB) TUBE 0843 Clopidogrel Bisulfate 75 MG QDAY 08/05 0900 AC 08/07 (PLAVIX TAB) TUBE 0844 Dexmedetomidine HCl 400 MCG TITRATE(SEE SHAUNA VFS) 08/06 2100 AC 08/07 (PRECEDEX VIAL) IV 0558 Sodium Chloride 96 ML (Sodium Chloride 0.9%) Enoxaparin Sodium 40 MG QDAY 07/28 09 AC 08/07 (LOVENOX D.SYR) SC 0845 Esomeprazole 40 MG BIDAC 08/05 0700 AC 08/07 Magnesium TUBE 0440 (NEXIUM CAP (TXI)) Fluoxetine HCl 20 MG QDAY 08/05 09 AC 08/07 (PROZAC CAP) TUBE 0849 Heparin Sodium See Dose Q24H 08/06 0900 AC 08/06 (Porcine) Insts (1) IV 0807 (HEP-LOCK *10*UNITS/ ML IV D.SYR.PF) Heparin Sodium See Dose PRN PRN 08/05 1500 AC (Porcine) Insts (2) IV (HEP-LOCK *10*UNITS/ ML IV D.SYR.PF) Levothyroxine Sodium 0.125 MG QDAYAC 08/05 07 AC 08/07 (SYNTHROID TAB) TUBE 0440 Loperamide [...] CVA, and Former Tobacco Abuse presented to [facility] emergency department on 07/27 secondary to Syncope [...] Morris Alonso MD Verified/Reviewed by 08/07/[address] [facility] Progress Note-Jive Developer [facility] [employer] Progress Note Normal [facility] Speech/Language Pathology Inpatient Missed Visit Note Location: [...] contact the Acute Therapy Department at extension [phone] Signed by: LIZABETH Taylor 08/07/2020 09:09:47 [facility] PATIENT NAME: ANDRE BLANCA [facility] Dr. Andrea MEDICAL REC #: [id number] [place] [address] ADMIT DATE: 07/27/20 SERVICE DATE: 08/07/20 Speech-Language Progress Note ATTENDING PHY: Marta Horvath DO Normal [facility] BMPon 08-06-2020 Anion gap [Moles/Vol] 5 mmol/L Normal 5-16 [facility] Comment on above: Order Comment: Maciel s: M What is the source? URINE Performed By: #### M 150.72847, M150.80687 #### [facility] [address] [place] [address] Calcium [Mass/Vol] 8.3 mg/dL Low 8.5-10.[address] [facility] Comment on above: Order Comment: Abundiou s: M What is the source? URINE Result Comment: NOTE NEW NORMAL RANGE DUE TO REAGENT CHANGE Performed By: #### M 150.59494, M150.36583 #### [facility] [address] [place] [address] Chloride [Moles/Vol] 108 mmol/L High 98-107 [facility] Comment on above: Order Comment: Abundiou s: M What is the source? URINE Performed By: #### M 150.95132, M150.43304 #### [facility] [address] [place] [address] CO2 [Moles/Vol] 28.0 mmol/L Normal 21-[address] [facility] Comment on above: Order Comment: Campu s: M What is the source? URINE Performed By: #### M 150.07355, M150.64604 #### [facility] [address] [place] [address] Creatinine [Mass/Vol] 1.06 mg/dL High 0.510-0.950 [facility] Comment on above: Order Comment: Campu s: M What is the source? URINE Result Comment: Geraldine ents receiving either N-Acetylcysteine (NAC) or Metamizole prior to venipuncture, may have falsely depressed results. Performed By: #### M 150.14298, M150.31957 #### [facility] [address] [place] [address] Glucose [Mass/Vol] 109 mg/dL High 70-[address] [facility] Comment on above: Order Comment: Campu s: M What is the source? URINE Result Comment: 70-1 00- Normal Fasting; 100-125 Impaired Fasting; greater than 126 on more than one result- Diabetes. ADA guidelines. Results may be falsely elevated after the administration of Sulfapyridine. Results may be falsely depressed after the administration of Sulfasalazine. Performed By: #### M 150.45603, M150.23000 #### [facility] [address] [place] [address] Potassium [Moles/Vol] 3.2 mmol/L Low 3.5-5.1 [facility] Comment on above: Order Comment: Campu s: M What is the source? URINE Performed By: #### M 150.32599, M150.54117 #### [facility] [address] [place] [address] Sodium [Moles/Vol] 141 mmol/L Normal 136-[address] [facility] Comment on above: Order Comment: Campu s: M What is the source? URINE Performed By: #### M 150.76697, M150.06838 #### [facility] [address] [place] [address] Urea nitrogen [Mass/Vol] 36 mg/dL High 7- [facility] Comment on above: Order Comment: Abundiou s: M What is the source? URINE Performed By: #### M 150.15267, M150.60133 #### [facility] [address] [place] [address] Urea nitrogen/Creatinine [Mass ratio] 34 mg/mg High 15-[address] [facility] Comment on above: Order Comment: Abundiou s: M What is the source? URINE Performed By: #### M 150.81323, M150.95760 #### [facility] [address] [place] [address] GFR ESTon 08-06-2020 IF AMER Greater than 60 Normal [facility] Comment on above: Order Comment: Abundiou s: M What is the source? URINE Performed By: #### M 150.42958, M150.91302 #### [facility] [address] [place] [address] IF non-AFR AMER [address] [facility] Comment on above: Order Comment: Abundiou s: M What is the source? URINE Performed By: #### M 150.23916, M150.64811 #### [facility] [address] [place] [address] PROG [facility] 08-06-2020 PROG [facility] Patient Name: ANDRE BLANCA [address] [place] [address] NW Date of : [address] [place] [address] Unit Number: [id number] Progress Note-Hospitalist Patient Status: ADM IN Attending Doctor: Marta Horvath DO Service Date: 08/06/20 1723 Chief Complaint Chief Complaint Syncope Patient is a 70-year-old female with past medical history significant for CVA, hypothyroidism, COPD not on home oxygen, recurrent syncopal episodes presented to [facility] after a syncopal episode. Patient also [...] rash noticed. Diagnostic Data: Lab 24hr (CBC[facility]) 08/06/20 0749: [Embedded Image Not Available] Anion [...] Time Gloria Saxena MD Verified/Reviewed by 08/06/20 0997 [facility] Progress Note-Hospitalist [facility] PROG.Rocael 08-06-2020 PROG.[facility] Patient Name: ANDRE BLANCA [address] Date of : [address] [place] [address] Unit Number: [id number] Progress Note-Jive Developer Patient Status: ADM IN Attending Doctor: Marta Horvath DO Service Date: 08/06/20 1015 Progress Note-Jive Developer Subjective Subjective: MS better, but still confused breathing is better Objective Vital Signs: Vital Signs (Last) Result Date Time Pulse Ox 92 08/06 700 B/P 117/57 08/06 0700 B/P Mean 82 08/06 700 O2 Delivery HIGH FLOW NC 08/06 700 O2 Flow Rate 35L 08/06 700 Pulse 101 08/06 700 Resp 28 08/06 700 Temp 99.2 08/06 0000 IandO 24 Hour Summary 12/24 0000 Intake Total 6797 Output Total 2512 [...] 1930 AC 08/05 (TYLENOL ORAL LIQ) TUBE 2209 Albuterol Sulfate 2.5 MG Q6HPRN PRN 07/28 [...] HCl 20 MG TIDWM 08/05 08 AC 08/06 (BUSPAR TAB) TUBE 0806 Carbamazepine [...] UDC) Melatonin 3 MG QHS 08/040 AC 08/05 (MELATONIN TAB) TUBE 2204 Menthol/Methyl 1 APPL BIDPRN PRN 07/28 0030 AC 07/29 Salicylate TP 2217 (MIHIR ALVAREZ T.CREAM) Ondansetron HCl 4 MG BIDPRN PRN 08/04 193 AC (ZOFRAN TAB) TUBE Ondansetron HCl 4 MG Q6HPRN PRN 07/27 2100 AC 08/04 (ZOFRAN VIAL) IV 212 Pravastatin Sodium 40 MG QHS 08/040 AC 08/05 (PRAVACHOL TAB) TUBE 2204 Pregabalin [...] CVA, and Former Tobacco Abuse presented to [facility] emergency department on 07/27 secondary to Syncope [...] Alonso MD Verified/Reviewed by 08/06/[address] [facility] Progress Note-Jive Developer Normal [facility] BMPon 08-05-2020 Anion gap [Moles/Vol] 6 mmol/L Normal 5-16 [facility] Comment on above: Order Comment: Campu s: M Minimal Draw: Y Performed By: #### L 500.14763, L500.14422 #### [facility] [place] [address] Calcium [Mass/Vol] 8.6 mg/dL Normal 8.5-10.[address] [facility] Comment on above: Order Comment: Campu s: M Minimal Draw: Y Result Comment: NOTE NEW NORMAL RANGE DUE TO REAGENT CHANGE Performed By: #### L 500.05872, L500.63303 #### [facility] [address] [place] [address] Chloride [Moles/Vol] 104 mmol/L Normal 98-107 [facility] Comment on above: Order Comment: Campu s: M Minimal Draw: Y Performed By: #### L 500.99208, L500.65335 #### [facility] [place] [address] CO2 [Moles/Vol] 28.0 mmol/L Normal 21-[address] [facility] Comment on above: Order Comment: Maciel Rubio Minimal Draw: Y Performed By: #### L 500.51730, L500.88128 #### [facility] [address] [place] [address] Creatinine [Mass/Vol] 2.01 mg/dL High 0.510-0.950 [facility] Comment on above: Order Comment: Maciel joe: Ramiro Minimal Draw: Y Result Comment: Geraldine ents receiving either N-Acetylcysteine (NAC) or Metamizole prior to venipuncture, may have falsely depressed results. Performed By: #### L 500.92102, L500.50190 #### [facility] [address] [place] [address] Glucose [Mass/Vol] 132 mg/dL High 70-[address] [facility] Comment on above: Order Comment: Maciel Rubio Minimal Draw: Y Result Comment: 70-1 00- Normal Fasting; 100-125 Impaired Fasting; greater than 126 on more than one result- Diabetes. ADA guidelines. Results may be falsely elevated after the administration of Sulfapyridine. Results may be falsely depressed after the administration of Sulfasalazine. Performed By: #### L 500.03469, L500.12608 #### [facility] [address] [place] [address] Potassium [Moles/Vol] 3.6 mmol/L Normal 3.5-5.1 [facility] Comment on above: Order Comment: Maciel Rubio Minimal Draw: Y Performed By: #### L 500.76127, L500.55053 #### [facility] [address] [place] [address] Sodium [Moles/Vol] 138 mmol/L Normal 136-[address] [facility] Comment on above: Order Comment: Campu s: M Minimal Draw: Y Performed By: #### L 500.07519, L500.28312 #### [facility] [address] [place] [address] Urea nitrogen [Mass/Vol] 54 mg/dL High 7-[address] [facility] Comment on above: Order Comment: Campu s: M Minimal Draw: Y Performed By: #### L 500.42714, L500.67667 #### [facility] [place] [id number] Urea nitrogen/Creatinine [Mass ratio] 27 mg/mg High 15-[address] [facility] Comment on above: Order Comment: Campu s: M Minimal Draw: Y Performed By: #### L 500.27401, L500.02127 #### [facility] [address] [place] [address] Anion gap [Moles/Vol] 8 mmol/L Normal 5-16 [facility] Comment on above: Order Comment: Campu s: M Performed By: #### L 200.30159 #### [facility] [address] [place] [address] Calcium [Mass/Vol] 9.1 mg/dL Normal 8.5-10.[address] [facility] Comment on above: Order Comment: Campu s: M Result Comment: NOTE NEW NORMAL RANGE DUE TO REAGENT CHANGE Performed By: #### L 200.72265 #### [facility] [place] [address] Chloride [Moles/Vol] 98 mmol/L Normal 98-107 [facility] Comment on above: Order Comment: Campu s: M Performed By: #### L 200.18949 #### [facility] [place] [address] CO2 [Moles/Vol] 28.0 mmol/L Normal 21-[address] [facility] Comment on above: Order Comment: Campu s: M Performed By: #### L 200.36573 #### [facility] [address] [place] [address] Creatinine [Mass/Vol] 3.19 mg/dL High 0.510-0.950 [facility] Comment on above: Order Comment: Campu s: M Result Comment: Geraldine ents receiving either N-Acetylcysteine (NAC) or Metamizole prior to venipuncture, may have falsely depressed results. Performed By: #### L 200.29594 #### [facility] [address] [place] [address] Glucose [Mass/Vol] 138 mg/dL High 70-[address] [facility] Comment on above: Order Comment: Campu s: M Result Comment: 70-1 00- Normal Fasting; 100-125 Impaired Fasting; greater than 126 on more than one result- Diabetes. ADA guidelines. Results may be falsely elevated after the administration of Sulfapyridine. Results may be falsely depressed after the administration of Sulfasalazine. Performed By: #### L 200.05538 #### [facility] [address] [place] [address] Potassium [Moles/Vol] 3.9 mmol/L Normal 3.5-5.1 [facility] Comment on above: Order Comment: Campu s: M Result Comment: Slig ht Hemolysis, Result may be affected. Performed By: #### L 200.43283 #### [facility] [address] [place] [address] Sodium [Moles/Vol] 134 mmol/L Low 136-[address] [facility] Comment on above: Order Comment: Campu s: M Performed By: #### L 200.49694 #### [facility] [address] [place] [address] Urea nitrogen [Mass/Vol] 60 mg/dL High 7-[address] [facility] Comment on above: Order Comment: Campu s: M Performed By: #### L 200.47850 #### [facility] [address] [place] [address] Urea nitrogen/Creatinine [Mass ratio] 19 mg/mg Normal 15-[address] [facility] Comment on above: Order Comment: Campu s: M Performed By: #### L 200.77581 #### [facility] [address] [place] [address] 29030 CBC W/DIFFon 08-05-2020 BASO ABS 0.10 K/CU MM Normal 0-0.[address] [facility] Comment on above: Order Comment: Campu s: M What is the source? URINE Performed By: #### M 150.72981, M150.89040 #### [facility] [address] [place] [address]43 Basophils/100 WBC (Bld) 0.4 % Normal 0-2 [facility] Comment on above: Order Comment: Campu s: M What is the source? URINE Performed By: #### M 150.21877, M150.99626 #### [facility] [address] [place] [address] 96834 EOS ABS 0.10 K/CU MM Normal 0-0.[address] [facility] Comment on above: Order Comment: Campu s: M What is the source? URINE Performed By: #### M 150.20518, M150.86375 #### [facility] [address] [place] [address] 23490 Eosinophils/100 WBC (Bld) 0.6 % Normal 0-[address] [facility] Comment on above: Order Comment: Campu s: M What is the source? URINE Performed By: #### M 150.34403, M150.29417 #### [facility] [place] [address] Erythrocyte distribution width (RBC) [Ratio] 14.2 % Normal 11-14.[address] [facility] Comment on above: Order Comment: Campu s: M What is the source? URINE Performed By: #### M 150.67052, M150.28472 #### [facility] [address] [place] [address] Hematocrit (Bld) [Volume fraction] 35.6 % Normal 35.0-47.[address] [facility] Comment on above: Order Comment: Campu s: M What is the source? URINE Performed By: #### M 150.47411, M150.91530 #### [facility] [address] [place] [address] Hemoglobin (Bld) [Mass/Vol] 11.6 g/dL Normal 11.5-15.[address] [facility] Comment on above: Order Comment: Campu s: M What is the source? URINE Performed By: #### M 150.38625, M150.80818 #### [facility] [address] [place] [address] IMMATR GRAN ABS 0.10 K/CU MM Normal Less than [address] [facility] Comment on above: Order Comment: Campu s: M What is the source? URINE Performed By: #### M 150.25604, M150.80306 #### [facility] [address] [place] [address] IMMATURE GRAN % 0.4 % Normal Less than [address] [facility] Comment on above: Order Comment: Campu s: M What is the source? URINE Performed By: #### M 150.69869, M150.80698 #### [facility] [address] [place] [address] Lymphocytes (Bld) [#/Vol] 1.20 K/CU MM Normal 0.9-4.[address] [facility] Comment on above: Order Comment: Campu s: M What is the source? URINE Performed By: #### M 150.29785, M150.21103 #### [facility] [address] [place] [address] Lymphocytes/100 WBC (Bld) 9.9 % Low 20-[address] [facility] Comment on above: Order Comment: Campu s: M What is the source? URINE Performed By: #### M 150.06663, M150.53945 #### [facility] [address] [place], [place] [address] MCHC (RBC) [Mass/Vol] 32.6 g/dL Normal 32.0-36.0 [facility] Comment on above: Order Comment: Campu s: M What is the source? URINE Performed By: #### M 150.06582, M150.87281 #### [facility] [address] [place] [address] MCV (RBC) [Entitic vol] 90.1 fL Normal 80.0-99.0 [facility] Comment on above: Order Comment: Campu s: M What is the source? URINE Performed By: #### M 150.10162, M150.40711 #### [facility] [address] [place] [address]2877 MONO ABS 1.00 K/CU MM Normal 0.1-1.[address] [facility] Comment on above: Order Comment: Campu s: M What is the source? URINE Performed By: #### M 150.32298, M150.38964 #### [facility] [address] [place] [address] Monocytes/100 WBC (Bld) 8.2 % Normal 2-10 [facility] Comment on above: Order Comment: Campu s: M What is the source? URINE Performed By: #### M 150.10811, M150.68111 #### [facility] [address] [place] [address] 45021 NEUTROPHIL ABS 9.40 K/CU MM High 2.0-8.[address] [facility] Comment on above: Order Comment: Campu s: M What is the source? URINE Performed By: #### M 150.36553, M150.32386 #### [facility] [address] [place] [address] Neutrophils/100 WBC (Bld) 80.5 % High 45-[address] [facility] Comment on above: Order Comment: Campu s: M What is the source? URINE Performed By: #### M 150.50139, M150.55261 #### [facility] [address] [place] [address] 50567 Nucleated RBC/100 WBC (Bld) [Ratio] 0.0 % Normal Less than [address] [facility] Comment on above: Order Comment: Campu s: M What is the source? URINE Performed By: #### M 150.00248, M150.85418 #### [facility] [address] [place] [address] 91882 Platelet mean volume (Bld) [Entitic vol] 11.0 fL Normal 9.4-12.[address] [facility] Comment on above: Order Comment: Campu s: M What is the source? URINE Performed By: #### M 150.66289, M150.70351 #### [facility] [address] [place] [address]8920 Platelets (Bld) [#/Vol] 264 K/CU MM Normal 150-[address] [facility] Comment on above: Order Comment: Campu s: M What is the source? URINE Performed By: #### M 150.47840, M150.87504 #### [facility] [place] [address] RBC (Bld) [#/Vol] 3.95 M/CU MM Normal 3.90-5.[address] [facility] Comment on above: Order Comment: Campu s: M What is the source? URINE Performed By: #### M 150.89747, M150.12311 #### [facility] [address] [place] [address] WBC (Bld) [#/Vol] 11.7 K/CUMM High 4.5-11.[address] [facility] Comment on above: Order Comment: Campu s: M What is the source? URINE Performed By: #### M 150.67651, M150.24637 #### [facility] [address] [place] [address] GFR ESTon 08-05-2020 IF AMER 30 [facility] Comment on above: Order Comment: Campu s: M Minimal Draw: Y Performed By: #### L 500.32836, L500.35399 #### [facility] [address] [place] [address] IF non-AFR AMER 24 [facility] Comment on above: Order Comment: Campu s: M Minimal Draw: Y Performed By: #### L 500.40762, L500.75096 #### [facility] [address] [place] [address] IF AMER 17 [facility] Comment on above: Order Comment: Campu s: M Performed By: #### L 200.37966 #### [facility] [address] [place] [address] IF non-AFR AMER 14 [facility] Comment on above: Order Comment: Campu s: M Performed By: #### L 200.48523 #### [facility] [address] [place] [address] MAGNESIUMon 08-05-2020 Magnesium [Mass/Vol] 1.8 MG/CL Normal 1.6-2.6 [facility] Comment on above: Order Comment: Campu s: M Performed By: #### L 200.39151 #### [facility] [address] [place], [place] [address] OTPNon 08-05-2020 OT Progress Note Normal [facility] [place] OTPN Occupational Therapy Inpatient Treatment Note Medical Diagnosis: Acute hypoxemic respiratory failure, Syncope, pneumonia, hypothyroidism OCCUPATIONAL PROFILE AND HISTORY Demographics: Age: 70Y Gender: Female Primary Language: [place] Preferred Language: [place] Referring Service/Team: Medicine Rehabilitation Precautions/Restrictio ns: monitor [...] Upper Body Clothing: A little help needed [facility] PATIENT NAME: ANDRE BLANCA [facility] Dr. Andrea MEDICAL REC #: [id number] [place] [address] ADMIT DATE: 07/27/20 SERVICE DATE: 08/05/20 Occupational [...] UP TO 10 MIN AT A TIME [facility] PATIENT NAME: ANDRE BLANCA [facility] Dr. Andrea MEDICAL REC #: [id number] [place] [address] ADMIT DATE: 07/27/20 SERVICE DATE: 08/05/20 Occupational [...] contact the Acute Therapy Department at extension [phone] Communication to Nursing: No updates at this time. Location of Patient at End of Therapy Session: In bed, bed alarm in place, call light within reach Services: Total Billed: 25 minutes (Timed: 25, Untimed: 0) 25.00 Timed: [11002] ADL-HOME MANAGEMENT EA 15 MIN 0.00 Untimed: [] OT Treatment General ORDER Signed by: KASEY Bryant 08/05/2020 16:53:57 [facility] PATIENT NAME: ANDRE BLANCA [facility] Dr. Andrea MEDICAL REC #: [id number] [place] [address] ADMIT DATE: 07/27/20 SERVICE DATE: 08/05/20 Occupational Therapy Progress Note ATTENDING PHY: Marta Horvath DO Normal [facility] Nicki 08-05-2020 Phosphate [Mass/Vol] 3.50 mg/dL Normal 2.5-4.9 [facility] Comment on above: Order Comment: Campu s: M Minimal Draw: Y Result Comment: Elev ated m-protein (paraprotein) levels in the serum may be exhibited in patients with monoclonal gammopathies, causing falsely elevated inorganic phosphorus results. Performed By: #### L 500.48088, L500.63222 #### [facility] [address] [place] [address] PROG [facility] 08-05-2020 PROG [facility] Patient Name: ANDRE BLANCA [address] [facility] Date of : [address] [id number] Unit Number: [id number] Progress Note-Hospitalist Patient Status: ADM IN Attending Doctor: Marta Horvath DO Service Date: 08/05/20 1601 Chief Complaint Chief Complaint Syncope Patient is a 70-year-old female with past medical history significant for CVA, hypothyroidism, COPD not on home oxygen, recurrent syncopal episodes presented to [facility] after a syncopal episode. Patient also [...] rash noticed. Diagnostic Data: Lab 24hr (CBC[facility]) 08/05/20 1535: Sodium Pending, Potassium Pending, [...] Gloria Saxena MD Verified/Reviewed by 08/05/20 1610 [facility] Progress Note-Hospitalist [facility] PROG.Rocael 08-05-2020 PROG.[facility] Patient Name: ANDRE BLANCA [address] [place] Date of : [address] [address] Unit Number: [id number] Progress Note-Jive Developer Patient Status: ADM IN Attending Doctor: Marta Horvath DO Service Date: 08/05/2047 Progress Note-Jive Developer Subjective Subjective: NG placed last evening, > 2 liters output still on high flow MS still compromised Objective Vital Signs: Vital Signs (Last) Result Date Time Pulse Ox 97 08/05 07 B/P 105/60 08/05 700 B/P Mean 77 08/05 700 O2 Delivery HIGH FLOW NC 08/05 700 O2 Flow Rate 35L 08/05 700 Pulse 92 08/05 0700 Resp 13 08/05 700 Temp 98.6 08/05 0400 IandO 24 Hour [...] 500 MG Q6HPRN PRN 08/04 1930 AC (TYLENOL ORAL LIQ) TUBE Albuterol Sulfate 2.5 MG Q6HPRN PRN 07/28 0030 AC (VENTOLIN/PROVENTIL INH 2.5MG/3ML INH.NEB) Albuterol/Ipratropium 3 ML Q4HRT 08/04 2030 AC 08/05 (DUONEB 0.5-3 MG/3 INH 0920 ML INH.NEB) Albuterol/Ipratropium 3 ML Q2HPRN PRN 07/28 0100 AC (DUONEB 0.5-3 MG/3 INH ML INH.NEB) Ampicillin Sodium/ 3 GM Q12H@18 08/04 1800 AC 08/05 Sulbactam Sodium IV 08/11 1759 0511 (UNASYN VIAL) Sodium Chloride 100 ML (Sodium Chloride 0.9%) Budesonide 0.5 MG BID 08/04 2100 AC 08/05 (PULMOCORT 0.5MG/2ML INH 0920 INH.NEB) Buspirone HCl 20 MG TIDWM 08/05 08 AC (BUSPAR TAB) TUBE Carbamazepine 200 MG TIDWM 08/05 08 AC (TEGRETOL TAB) TUBE Clopidogrel Bisulfate 75 MG QDAY 08/05 0900 AC (PLAVIX TAB) TUBE Enoxaparin Sodium 40 MG QDAY 07/28 09 AC 08/04 (LOVENOX D.SYR) [place] 0939 Esomeprazole 40 MG BIDAC 08/05 0700 AC Magnesium TUBE (NEXIUM CAP (TXI)) Fluoxetine HCl 20 MG QDAY 08/05 09 AC (PROZAC CAP) TUBE Levothyroxine Sodium 0.125 MG QDAYAC 08/05 07 AC (SYNTHROID TAB) TUBE Loperamide HCl 2 MG PRN PRN 08/04 1930 AC (IMODIUM AD ORAL TUBE LIQUID UDC) Melatonin 3 MG QHS 08/04 2200 AC (MELATONIN TAB) TUBE Menthol/Methyl 1 APPL BIDPRN PRN 07/28 30 AC 07/29 Salicylate TP 2217 (MIHIR ALVAREZ [...] CVA, and Former Tobacco Abuse presented to [facility] emergency department on 07/27 secondary to Syncope [...] Morris Alonso MD Verified/Reviewed by 08/05/20 0951 [facility] Progress Note-Jive Developer [facility] 08-05-2020 PT Progress Note [facility] PTPN Physical Therapy Inpatient Treatment Note Medical Diagnosis: 1. Acute hypoxemic respiratory failure 2. Syncope 3. Hypothyroidism Demographics: Age: 70Y Gender: Female Primary Language: [place] Preferred Language: [place] Rehabilitation Precautions/Restrictio ns: NG tube, wrist restraints, [...] reps of standing marches, heel raises, and [facility] PATIENT NAME: ANDRE BLANCA [facility] Dr. Andrea MEDICAL REC #: [id number] [place] [address] ADMIT DATE: 07/27/20 SERVICE DATE: 08/05/20 Physical Therapy Progress Note ATTENDING PHY: Marta Horvath. Cues for technique. Pt required [...] contact the Acute Therapy Department at extension [phone] Location of Patient at End of Therapy Session: In bed, bed alarm in place, call light within reach Services: Total Billed: 25 minutes (Timed: 25, Untimed: 0) [facility] PATIENT NAME: ANDRE BLANCA [facility] Dr. Andrea MEDICAL REC #: [id number] [place] [address] ADMIT DATE: 07/27/20 SERVICE DATE: 08/05/20 Physical Therapy Progress Note ATTENDING PHY: Marta Horvath DO 25.00 Timed: [28622] THER ACTIVITIES / 15 MIN 0.00 Untimed: [] PT Treatment- General ORDER Signed by: Brianna Guy PT 08/05/2020 16:47:01 [facility] MEDICAL REC #: [id number] [place] [address] ADMIT DATE: 07/27/20 SERVICE DATE: 08/05/20 Physical Therapy Progress Note ATTENDING PHY: Marta Horvath DO [facility] [employer] ASSEM[employer]ER Progress Note Normal [facility] Speech/Language Pathology Inpatient Missed Visit Note Location: [...] contact the Acute Therapy Department at extension [phone] Signed by: LIZABETH Taylor 08/05/2020 15:38:32 [facility] PATIENT NAME: ANDRE BLANCA [facility] Dr. Andrea MEDICAL REC #: [id number] [place] [address] ADMIT DATE: 07/27/20 SERVICE DATE: 08/05/20 Speech-Language Progress Note ATTENDING PHY: Marta Horvath DO Normal [facility] UR EOS SMEARon 08-05-2020 UR EOS SMEAR Normal NONE SEEN [facility] Comment on above: Order Comment: Campu s: MMinimal Draw: Y Result Comment: 0 EO SINOPHILS PER 25 WBCs Performed By: #### L 600.41283 ####[facility] [id number] [place], [place] [address]Qm# [phone] ABGPon 08-04-2020 ABG BE 4.8 MML/L High -2.0-2.[address] [facility] Comment on above: Order Comment: Campu s: MPatient's Anticoagulant? UNKNOWN Performed By: #### L 100.99322 ####[facility] [id number] [place], [place] [address]Up# [phone] ABG COHBA 1.0 % Normal 0-[address] [facility] Comment on above: Order Comment: Campu s: MPatient's Anticoagulant? UNKNOWN Performed By: #### L 100.72064 ####[facility] [id number] [place], [place] [address]Zp# [phone] ABG HCO3 30.2 MMOL/L High 22-[address] [facility] Comment on above: Order Comment: Campu s: MPatient's Anticoagulant? UNKNOWN Performed By: #### L 100.27970 ####[facility] [id number] [place], [place] [address]Ri# [phone] ABG MET 0.0 % Low 0.4-1.[address] [facility] Comment on above: Order Comment: Campu s: MPatient's Anticoagulant? UNKNOWN Performed By: #### L 100.26343 ####[facility] [id number] [place], [place] [address]Bc# [phone] ABG O2 CAPACITY 20.1 mL/dL Normal [facility] Comment on above: Order Comment: Campu s: MPatient's Anticoagulant? UNKNOWN Performed By: #### L 100.74033 ####[facility] [id number] [place], [place] [address]Qm# [phone] ABG O2 CONTENT 17.0 mL/dL Normal 15.7-21.[address] [facility] Comment on above: Order Comment: Campu s: MPatient's Anticoagulant? UNKNOWN Performed By: #### L 100.68861 ####[facility] MKSPRWKZZY3708 [place], [place] [address]Zf# [phone] ABG O2HB SAT 83.0 % Critically low 90-[address] [facility] Comment on above: Order Comment: Campu s: MPatient's Anticoagulant? UNKNOWN Result Comment: CRIT ICAL VALUE(S) VERIFIED AND CALLED TO AND READ BACK BY Betty HARPER RN AT 0010 08/04/20 BY BEVERLEY FLORES Performed By: #### L 100.02578 ####[facility] [id number] [place], [place] [address]Ar# [phone] ABG PCO2 47.5 MMHG High 35-[address] [facility] Comment on above: Order Comment: Campu s: MPatient's Anticoagulant? UNKNOWN Performed By: #### L 100.64768 ####[facility] [id number] [place], [place] [address]Gh# [phone] ABG PH 7.42 Normal 7.35-7.[address] [facility] Comment on above: Order Comment: Campu s: MPatient's Anticoagulant? UNKNOWN Performed By: #### L 100.88509 ####[facility] JYVQCKQLCI5558 [place], [place] [address]Sw# [phone] ABG PO2 49 MMHG Critically low 80-[address] [facility] Comment on above: Order Comment: Campu s: MPatient's Anticoagulant? UNKNOWN Result Comment: CRIT ICAL VALUE(S) VERIFIED AND CALLED TO AND READ BACK BY Betty HARPER RN AT 0010 08/04/20 BY BEVERLEY FLORES Performed By: #### L 100.48081 ####[facility] EEVAZZVRTT6403 [place], [place] [address]Ad# [phone] DOUG TEST Positive Normal [facility] Comment on above: Order Comment: Campu s: MPatient's Anticoagulant? UNKNOWN Performed By: #### L 100.00555 ####[facility] [id number] [place], [place] [address]Ue# [phone] aPTT Coag (Bld) [Time] 37.0 C Normal [facility] Comment on above: Order Comment: Campu s: MPatient's Anticoagulant? UNKNOWN Performed By: #### L 100.28755 ####[facility] NSDGSVNTFO1959 [place], [place] [address]Mv# [phone] EQUIPMENT HIGH FLOW CANNULA Normal [facility] Comment on above: Order Comment: Campu s: MPatient's Anticoagulant? UNKNOWN Performed By: #### L 100.92204 ####[facility] HRGNYWOXML4129 [place], [place] [address]Rm# [phone] Hemoglobin (Bld) [Mass/Vol] 16.0 % Critically high 0-[address] [facility] Comment on above: Order Comment: Campu s: MPatient's Anticoagulant? UNKNOWN Performed By: #### L 100.66840 ####[facility] [id number] [place], [place] [address]Kh# [phone] Hemoglobin (Bld) [Mass/Vol] 14.6 g/dL Normal 10-[address] [facility] Comment on above: Order Comment: Campu s: MPatient's Anticoagulant? UNKNOWN Performed By: #### L 100.47277 ####[facility] KPCYCURCDE9208 [place], [place] [address]Vo# [phone] LITERFLOW 15.00 L/M Normal [facility] Comment on above: Order Comment: Campu s: MPatient's Anticoagulant? UNKNOWN Performed By: #### L 100.97169 ####[facility] FQAQPIQPAQ8388 [place], [place] [address]Uq# [phone] Oxygen saturation in Blood 84 % Normal [facility] Comment on above: Order Comment: Campu s: MPatient's Anticoagulant? UNKNOWN Performed By: #### L 100.31481 ####[facility] EZTSIIGPSN9101 [place], [place] [address]Bu# [phone] SAMPLE SITE L RADIAL Normal [facility] Comment on above: Order Comment: Campu s: MPatient's Anticoagulant? UNKNOWN Performed By: #### L 100.34715 ####[facility] VFUIGFWDAV1001 [place], [place] [address]Uf# [phone] SAMPLE TYPE ARTERIAL Normal [facility] Comment on above: Order Comment: Campu s: MPatient's Anticoagulant? UNKNOWN Performed By: #### L 100.38840 ####[facility] [id number] [place], [place] [address]Bz# [phone] AMYon 08-04-2020 STAR 56 U/L Normal 25-[address] [facility] Comment on above: Order Comment: Campu s: M Performed By: #### L 500.58051, L500.14886 ####[facility] VGIALRIXCL3294 [place], [place] [address]Rg# [phone] BMPon 08-04-2020 Anion gap [Moles/Vol] 11 mmol/L Normal 5-16 [facility] Comment on above: Order Comment: Campu s: MMinimal Draw: Y Performed By: #### L 500.57604, L500.17163 ####[facility] IRFKNJWFOY7988 [place], [place] [address]Hi# [phone] Calcium [Mass/Vol] 8.8 mg/dL Normal 8.5-10.[address] [facility] Comment on above: Order Comment: Campu s: MMinimal Draw: Y Result Comment: NOTE NEW NORMAL RANGE DUE TO REAGENT CHANGE Performed By: #### L 500.05585, L500.94750 ####[facility] UOMGFUGFRS6424 [place], [place] [address]Zs# [phone] Chloride [Moles/Vol] 90 mmol/L Low 98-107 [facility] Comment on above: Order Comment: Campu s: MMinimal Draw: Y Performed By: #### L 500.99618, L500.96490 ####[facility] [id number] [place] [address]Mv# [phone] CO2 [Moles/Vol] 29.0 mmol/L Normal 21-[address] [facility] Comment on above: Order Comment: Campu s: MMinimal Draw: Y Performed By: #### L 500.13100, L500.54680 ####[facility] [id number] [place] [address]Da# [phone] Creatinine [Mass/Vol] 4.24 mg/dL High 0.510-0.950 [facility] Comment on above: Order Comment: Campu s: MMinimal Draw: Y Result Comment: Geraldine ents receiving either N-Acetylcysteine (NAC) or Metamizole prior to venipuncture, may have falsely depressed results. Performed By: #### L 500.62758, L500.45226 ####[facility] [id number] [place] [address]Ph# [phone] Glucose [Mass/Vol] 178 mg/dL High 70-[address] [facility] Comment on above: Order Comment: Campu s: MMinimal Draw: Y Result Comment: 70-1 00- Normal Fasting; 100-125 Impaired Fasting; greater than 126 on more than one result- Diabetes. ADA guidelines. Results may be falsely elevated after the administration of Sulfapyridine. Results may be falsely depressed after the administration of Sulfasalazine. Performed By: #### L 500.35208, L500.95015 ####[facility] KHXRNDSKGR5986 [place], [place] [address]Ee# [phone] Potassium [Moles/Vol] 3.9 mmol/L Normal 3.5-5.1 [facility] [place] Comment on above: Order Comment: Campu s: MMinimal Draw: Y Performed By: #### L 500.08051, L500.00301 ####[address] [address]Lo# [phone] Sodium [Moles/Vol] 130 mmol/L Low 136-[address] [facility] Comment on above: Order Comment: Campu s: MMinimal Draw: Y Performed By: #### L 500.49942, L500.11315 ####[address] [address]Xp# [phone] Urea nitrogen [Mass/Vol] 54 mg/dL High 7-[address] [facility] Comment on above: Order Comment: Campu s: MMinimal Draw: Y Performed By: #### L 500.49655, L500.55957 ####[address] [address]Om# [phone] Urea nitrogen/Creatinine [Mass ratio] 13 mg/mg Low 15-[address] [facility] Comment on above: Order Comment: Campu s: MMinimal Draw: Y Performed By: #### L 500.63920, L500.19091 ####[facility] [id number] [place] [address]Nx# [phone] CBC W/DIFFon 08-04-2020 BASO ABS 0.10 K/CU MM Normal 0-0.[address] [facility] Comment on above: Order Comment: Campu s: MMinimal Draw: Y Performed By: #### L 200.13919 ####[facility] [id number] [place] [address]Ax# [phone] Basophils/100 WBC (Bld) 0.4 % Normal 0-2 M [facility] [place] Comment on above: Order Comment: Campu s: MMinimal Draw: Y Performed By: #### L 200.56275 ####[facility] [id number] [place] [address]Ob# [phone] EOS ABS 0.10 K/CU MM Normal [facility]0.5 [facility] Comment on above: Order Comment: Campu s: MMinimal Draw: Y Performed By: #### L 200.62516 ####[facility] [id number] [place] [address]Wp# [phone] Eosinophils/100 WBC (Bld) 0.9 % Normal 0-5 [facility] Comment on above: Order Comment: Campu s: MMinimal Draw: Y Performed By: #### L 200.42231 ####[place] [address]Ph# [phone] Erythrocyte distribution width (RBC) [Ratio] 14.1 % Normal 11-14.5 [facility] Comment on above: Order Comment: Campu s: MMinimal Draw: Y Performed By: #### L 200.92246 ####[place] [address]Ph# [phone] Hematocrit (Bld) [Volume fraction] 43.7 % Normal 35.0-47.[address] [facility] Comment on above: Order Comment: Campu s: MMinimal Draw: Y Performed By: #### L 200.02605 ####[facility] [id number] [place] [address]Vs# [phone] Hemoglobin (Bld) [Mass/Vol] 14.0 g/dL Normal 11.5-15.5 [facility] Comment on above: Order Comment: Campu s: MMinimal Draw: Y Performed By: #### L 200.90959 ####[facility] [id number] [place] [address]Bx# [phone] IMMATR GRAN ABS 0.00 K/CU MM Normal Less than 2 [facility] [place] Comment on above: Order Comment: Campu s: MMinimal Draw: Y Performed By: #### L 200.90048 ####[facility] EHUPPZBAGA5281 [place], [place] [address]Nb# [phone] IMMATURE GRAN % 0.3 % Normal Less than [address] [facility] Comment on above: Order Comment: Campu s: MMinimal Draw: Y Performed By: #### L 200.43500 ####[address] [address]Ig# [phone] Lymphocytes (Bld) [#/Vol] 0.80 K/CU MM Low 0.9-4.[address] [facility] Comment on above: Order Comment: Campu s: MMinimal Draw: Y Performed By: #### L 200.23169 ####[place] [address]Ph# [phone] Lymphocytes/100 WBC (Bld) 6.5 % Low 20-[address] [facility] Comment on above: Order Comment: Campu s: MMinimal Draw: Y Performed By: #### L 200.69634 ####[address] [address]Jt# [phone] MCHC (RBC) [Mass/Vol] 32.0 g/dL Normal 32.0-36.0 [facility] Comment on above: Order Comment: Campu s: MMinimal Draw: Y Performed By: #### L 200.82032 ####[facility] [id number] [place] [address]Qg# [phone] MCV (RBC) [Entitic vol] 91.2 fL Normal 80.0-99.0 [facility] Comment on above: Order Comment: Campu s: MMinimal Draw: Y Performed By: #### L 200.88281 ####[facility] [id number] [place] [address]Rs# [phone] MONO ABS 0.90 K/CU MM Normal 0.1-1.[address] [facility] Comment on above: Order Comment: Campu s: MMinimal Draw: Y Performed By: #### L 200.74984 ####[facility] KCURQFSUHP9081 [place], [place] [address]Nv# [phone] Monocytes/100 WBC (Bld) 6.9 % Normal 2-10 [facility] Comment on above: Order Comment: Campu s: MMinimal Draw: Y Performed By: #### L 200.76667 ####[facility] [id number] [place] [address]Ov# [phone] NEUTROPHIL ABS 10.90 K/CU MM High 2.0-8.[address] [facility] Comment on above: Order Comment: Campu s: MMinimal Draw: Y Performed By: #### L 200.69662 ####[facility] [id number] [place] [address]On# [phone] Neutrophils/100 WBC (Bld) 85.0 % High 45-75 [facility] Comment on above: Order Comment: Campu s: MMinimal Draw: Y Performed By: #### L 200.78800 ####[facility] [id number] [place], [place] [address]Jx# [phone] Nucleated RBC/100 WBC (Bld) [Ratio] 0.0 % Normal Less than [address] [facility] Comment on above: Order Comment: Campu s: MMinimal Draw: Y Performed By: #### L 200.15908 ####[facility] [id number] [place] [address]Bw# [phone] Platelet mean volume (Bld) [Entitic vol] 11.0 fL Normal 9.4-12.[address] [facility] Comment on above: Order Comment: Campu s: MMinimal Draw: Y Performed By: #### L 200.29358 ####[facility] [id number] [place], [place] [address]Nx# [phone] Platelets (Bld) [#/Vol] 377 K/CU MM Normal 150-[address] [facility] Comment on above: Order Comment: Campu s: MMinimal Draw: Y Performed By: #### L 200.87214 ####[facility] [id number] [place], [place] [address]Yh# [phone] RBC (Bld) [#/Vol] 4.79 M/CU MM Normal 3.90-5.[address] [facility] Comment on above: Order Comment: Campu s: MMinimal Draw: Y Performed By: #### L 200.01541 ####[facility] [id number] [place], [place] [address]Mu# [phone] WBC (Bld) [#/Vol] 12.9 K/CUMM High 4.5-11.[address] [facility] Comment on above: Order Comment: Campu s: MMinimal Draw: Y Performed By: #### L 200.58837 ####[facility] [id number] [place], [place] [address]Pc# [phone] CONS.INTENon 08-04-2020 CONS.INTEN [facility] Patient Name: ANDRE BLANCA [address] [facility] Date of : [address] [address] Unit Number: [id number] Consultation-Intensivi st Patient Status: ADM IN Attending Doctor: Marta Horvath DO Service Date: 08/04/20 1545 History of Present Illness Referring Physician Gloria Saxena MD Consulted Provider Morris Alonso MD Source of Information Patient Reason for Consult Acute Hypoxic Respiratory Failure History of Present Illness 70 y/o with PMHx of COPD, HFpEF, CVA, and Former Tobacco Abuse presented to [facility] emergency department on 07/27 secondary to Syncope [...] as Reported by GASTON URIBE on 10/24/18 132 Last Action: Reviewed on 08/04/201617 by GLORIA [...] Entered as Reported by COSME GARCIA on 02/22/191610 Last Action: Reviewed on 08/04/201617 by GLORIA SAXENA Pregabalin* (Lyrica Cap*) 150 MG CAPSULE 150 MG PO BID, Ref 0 (Reported) Entered as Reported by COSME GARCIA on 02/22/19 161 Last Action: Reviewed on 08/04/201617 by GLORIA SAXENA Risperidone* (Risperdal 3MG Tab*) 3 MG TABLET 3 MG PO BID, Ref 0 (Reported) Entered as Reported by COSME GARCIA on 02/22/191611 Last Action: Reviewed on 08/04/201617 by GLORIA [...] INH.NEB) Buspirone HCl 20 MG TIDWM 07/28 0800 AC 08/04 (BUSPAR TAB) PO 1144 Carbamazepine 200 MG TIDWM 07/28 0800 AC 08/04 (TEGRETOL TAB) PO 1144 Clopidogrel [...] PO 202 Melatonin 3 MG QHS 07/28 010 AC 08/03 (MELATONIN TAB) PO 2005 Menthol/Methyl 1 APPL BIDPRN PRN 07/28 003 AC 07/29 Salicylate TP 2217 (MIHIR ALVAREZ T.CREAM) Ondansetron HCl 4 MG BIDPRN PRN 07/28 0030 AC 08/03 (ZOFRAN TAB) PO 1616 Ondansetron HCl 4 MG Q6HPRN PRN 07/27 2100 AC 08/04 (ZOFRAN VIAL) IV 1505 Pantoprazole Sodium 40 MG BIDAC 07/28 0700 AC 08/04 (PROTONIX TAB) PO 1506 Pravastatin Sodium 40 MG QHS 07/28 0100 AC 08/03 (PRAVACHOL TAB) PO 2006 Pregabalin 150 MG BID 07/28 0900 AC [...] Mean Pulse Ox FiO2 08/03-08/04 97.5-98.5 93-109 - 121-126/59-87 84-95 Physical Examination Summary General: AandO [...] CVA, and Former Tobacco Abuse presented to [facility] emergency department on 07/27 secondary to Syncope [...] exist. eSign Date and Time Sabrina Saha MAIL HANDLER Verified/Reviewed by 08/05/20 0716 Morris Alonso MD [facility] Consultation-Intensivis t [facility] GFR ESTon 08-04-2020 IF AMER 12 [facility] Comment on above: Order Comment: Campu s: MMinimal Draw: Y Performed By: #### L 500.15048, L500.80786 ####[facility] [id number] [place] [address]Xs# [phone] IF non-AFR AMER 10 [facility] Comment on above: Order Comment: Campu s: MMinimal Draw: Y Performed By: #### L 500.66001, L500.43662 ####[facility] [id number] [place], [place] [address]Js# [phone] IONIZED CAon 08-04-2020 IONIZED CA 0.97 MMOL/L Low 1.16-1.[address] [facility] Comment on above: Order Comment: Campu s: M Performed By: #### L 550.03474 #### [facility] [address] [place] [address] LACTIC ACIDon 08-04-2020 Lactate [Moles/Vol] 1.14 mmol/L Normal 0.40-2.00 [facility] Comment on above: Order Comment: Campu s: M Performed By: #### L 200.95383 #### [facility] [address] [place] [address] LIPASEon 08-04-2020 Lipase [Catalytic activity/Vol] 24 U/L Normal 12-[address] [facility] Comment on above: Order Comment: Abundiou s: M Result Comment: Slig ht Hemolysis, Result may be affected. NOTE NEW NORMAL RANGE DUE TO REAGENT CHANGE Performed By: #### L 500.31677, L500.10754 ####[facility] [id number] [place], [place] [address]Ib# [phone] MAGNESIUMon 08-04-2020 Magnesium [Mass/Vol] 1.8 MG/CL Normal 1.6-2.6 [facility] Comment on above: Order Comment: Abundiou s: M Performed By: #### L 500.36148, L500.96269 ####[facility] [id number] [place], [place] [address]Kw# [phone] PHOSon 08-04-2020 Phosphate [Mass/Vol] 6.90 mg/dL High 2.5-4.9 [facility] Comment on above: Order Comment: Maciel s: M What is the source? URINE Result Comment: Elev ated m-protein (paraprotein) levels in the serum may be exhibited in patients with monoclonal gammopathies, causing falsely elevated inorganic phosphorus results. Performed By: #### M 150.05978, M150.84189 #### [facility] [address] [place] [address] PROG IMS 08-04-2020 PROG [facility] Patient Name: ANDRE BLANCA [address] [place] [address] NW Date of : [address] [address] Unit Number: [id number] Progress Note-Hospitalist Patient Status: ADM IN Attending Doctor: Marta Horvath DO Service Date: 08/04/201716 Chief Complaint Chief Complaint Syncope Patient is a 70-year-old female with past medical history significant for CVA, hypothyroidism, COPD not on home oxygen, recurrent syncopal episodes presented to [facility] after a syncopal episode. Patient also [...] rash noticed. Diagnostic Data: Lab 24hr ([facility]) 08/04/20 1622: Phosphorus 6.90 H, Magnesium [...] pneumonia Left lower lobe pneumonia Aspiration pneumonia TAHSI Syncope Hypothyroidism History of CVA Depression Bipolar [...] Time Gloria Saxena MD Verified/Reviewed by 08/04/20 0072 [facility] Progress Note-Hospitalist [facility] PTPNon 08-04-2020 PT Progress Note [facility] PTPN Physical Therapy Inpatient Treatment Note Medical Diagnosis: 1. Acute hypoxemia respiratory failure 2. Syncope 3. Hypothyroidism Demographics: Age: 70Y Gender: Female Primary Language: [place] Preferred Language: [place] Rehabilitation Precautions/Restrictio ns: monitor BP fall risk [...] No updates required at this time. ASSESSMENT [facility] PATIENT NAME: ANDRE BLANCA [facility] Dr. Andrea MEDICAL REC #: [id number] [place] [address] ADMIT DATE: 07/27/20 SERVICE DATE: 08/04/20 Physical [...] contact the Acute Therapy Department at extension [phone] Location of Patient at End of Therapy Session: In bed, bed alarm in place, call light within reach Services: Total Billed: 17 minutes (Timed: 17, Untimed: 0) 17.00 Timed: [75771] THERAPEUTIC EXERCISE EA 15 MIN 0.00 Untimed: [] PT Treatment- General ORDER Signed by: RENALDO BENAVIDES, CURATOR [employer] 08/04/2020 16:33:33 - CoSigned By: Brianna Guy, PT 08/04/2020 5:19:11 PM [facility] PATIENT NAME: ANDRE BLANCA [facility] Dr. 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 Assessment Report Normal [facility] Speech/Language Pathology Inpatient Clinical Swallow Evaluation Medical Diagnosis: Acute hypoxemic respiratory failure Therapy Diagnosis: Rank Code Description 1 R13.10 Dysphagia, unspecified Demographics: Age: 70Y Gender: Female Primary Language: [place] Preferred Language: [place] Referring Service/Team: Medicine Past Medical History: PMHx: [...] Illness 70-year-old female, primary care through [facility], past medical history CVA, hypothyroidism, COPD not on home oxygen, recurrent syncopal episodes in the past that she states have been worked up by her physicians at the [facility], testing done at the [facility] and here at [facility], concluding that she has "low blood [...] historian and seems to be reliable historian. [facility] PATIENT NAME: ANDRE BLANCA [facility] Dr. Andrea MEDICAL REC #: [id number] [place] [address] ADMIT DATE: 07/27/20 SERVICE DATE: 08/04/20 Speech-Language [...] PO trials due to not being hungry/nauseated [facility] PATIENT NAME: ANDRE BLANCA [facility] Dr. 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 PLAN Treatment Frequency, Duration and Interventions: Speech/Language [...] Unclear if the pt comprehended this POC [facility] PATIENT NAME: ANDRE BLANCA Dr. Andrea MEDICAL REC #: [id number] [place] [address] ADMIT DATE: 07/27/20 SERVICE DATE: 08/04/20 Speech-Language Assessment Report ATTENDING PHY: Marta Horvath DO If there are any questions regarding this service, please contact the Acute Therapy Department at extension [phone] Communication to Nursing: No updates at this time. Location of Patient at End of Therapy Session: In bed, bed alarm in place, call light within reach Services: Total Billed: 45 minutes (Timed: 0, Untimed: 45) 45.00 Untimed: [56398] BDSIDE SWALLOW EVAL 0.00 Untimed: [] Speech Treatment ORDER Signed by: LIZABETH Jack 08/04/2020 11:27:19 [facility] MEDICAL REC #: [id number] [place] [address] ADMIT DATE: 07/27/20 SERVICE DATE: 08/04/20 Speech-Language Assessment Report ATTENDING PHY: Marta Horvath DO [facility] UA COMPLETEon 08-04-2020 Color (U) [place] [facility] Comment on above: Order Comment: Maciel s: M What is the source? URINE Performed By: #### M 150.37830, M150.62126 #### [facility] [address] [place] [address] Glucose (U) [Mass/Vol] Negative Normal NORMAL Me [facility] Comment on above: Order Comment: Campu s: M What is the source? URINE Performed By: #### M 150.15998, M150.15482 #### [facility] [address] [place] [address] HYALINE CAST 38 /LPF High 0-[address] [facility] Comment on above: Order Comment: Campu s: M What is the source? URINE Performed By: #### M 150.86249, M150.87807 #### [facility] [address] [place] [address] Mucus Ql (Urine sed) TRACE Normal NEGATIVE [facility] Comment on above: Order Comment: Campu s: M What is the source? URINE Performed By: #### M 150.80278, M150.19781 #### [facility] [address] [place] [address] SQUAMOUS EPIS 0 EPI/HPF Normal 0-[address] [facility] Comment on above: Order Comment: Campu s: M What is the source? URINE Performed By: #### M 150.86039, M150.17225 #### [facility] [address] [place] [address] UA APPEARANCE Hazy Normal CLEAR [facility] Comment on above: Order Comment: Campu s: M What is the source? URINE Performed By: #### M 150.91130, M150.59083 #### [facility] [address] [place] [address] UA BACTERIA TRACE Normal NONE [facility] Comment on above: Order Comment: Campu s: M What is the source? URINE Performed By: #### M 150.93567, M150.03351 #### [facility] [address] [place] [address] UA BILIRUBIN Negative Normal NEGATIVE [facility] Comment on above: Order Comment: Campu s: M What is the source? URINE Performed By: #### M 150.04139, M150.99882 #### [facility] [address] [place] [address] UA BLOOD Negative Normal NEGATIVE [facility] Comment on above: Order Comment: Campu s: M What is the source? URINE Performed By: #### M 150.98702, M150.30083 #### [facility] [address] [place] [address] UA KETONE Negative Normal NEGATIVE [facility] Comment on above: Order Comment: Campu s: M What is the source? URINE Performed By: #### M 150.56468, M150.54602 #### [facility] [address] [place] [address] UA LK ESTERASE Negative Normal NEGATIVE [facility] Comment on above: Order Comment: Campu s: M What is the source? URINE Performed By: #### M 150.37406, M150.71863 #### [facility] [place] [address] UA NITRITE Negative Normal NEGATIVE [facility] Comment on above: Order Comment: Campu s: M What is the source? URINE Performed By: #### M 150.96673, M150.78721 #### [facility] [place] [address] UA PH 5.0 Normal 5-[address] [facility] Comment on above: Order Comment: Campu s: M What is the source? URINE Performed By: #### M 150.55159, M150.94277 #### [facility] [place] [address] UA PROTEIN [address] [facility] Comment on above: Order Comment: Campu s: M What is the source? URINE Performed By: #### M 150.49643, M150.32590 #### [facility] [address] [place] [address] UA RBC 1 RBC/HPF Normal 0-[address] [facility] Comment on above: Order Comment: Abundiou s: M What is the source? URINE Performed By: #### M 150.43809, M150.39035 #### [facility] [address] [place] [address] UA SPEC GRAV 1.028 Normal 1.005-1.[address] [facility] Comment on above: Order Comment: Abundiou s: M What is the source? URINE Performed By: #### M 150.30466, M150.28388 #### [facility] [address] [place] [address] UA UROBILINOGEN Negative Normal NORMAL [facility] Comment on above: Order Comment: Abundiou s: M What is the source? URINE Performed By: #### M 150.50435, M150.82973 #### [facility] [address] [place] [address] UA WBC 1 WBC/HPF Normal 0-[address] [facility] Comment on above: Order Comment: Abundiou s: M What is the source? URINE Performed By: #### M 150.65445, M150.17021 #### [facility] [place] [address] OTPNon 08-03-2020 OT Progress Note Normal [facility] OTPN Occupational Therapy Inpatient Treatment Note Medical Diagnosis: Acute hypoxemic respiratory failure, Syncope, pneumonia, hypothyroidism OCCUPATIONAL PROFILE AND HISTORY Demographics: Age: 70Y Gender: Female Primary Language: [place] Preferred Language: [place] Referring Service/Team: Medicine Rehabilitation Precautions/Restrictio ns: monitor [...] bed mobility including supine to sit, rolling, [facility] PATIENT NAME: ANDRE BLANCA [facility] Dr. Andrea MEDICAL REC #: [id number] [place] [address] ADMIT DATE: 07/27/20 SERVICE DATE: 08/03/20 Occupational Therapy Progress Note ATTENDING DAMIAN: Marta Horvath. requiring minimal assistance. Requires extra time. Verbal [...] AROUND THE HOUSE - Not Met ongoing [facility] PATIENT NAME: ANDRE BLANCA [facility] Dr. Andrea MEDICAL REC #: [id number] [place] [address] ADMIT DATE: 07/27/20 SERVICE DATE: 08/03/20 Occupational Therapy Progress Note ATTENDING DAMIAN: Marta Horvath DO 4. IMPROVED STRENGTH/PULMONARY ENDURANCE [...] contact the Acute Therapy Department at extension [phone] Communication to Nursing: No updates at this time. Location of Patient at End of Therapy Session: In chair, chair alarm in place, call light within reach Services: Total Billed: 25 minutes (Timed: 25, Untimed: 0) 25.00 Timed: [19657] ADL-HOME MANAGEMENT EA 15 MIN 0.00 Untimed: [] OT Treatment General ORDER Signed by: VASHTI Montejo OTR/Asuncion 08/03/2020 14:41:25 [facility] PATIENT NAME: ANDRE BLANCA Dr. Andrea MEDICAL REC #: [id number] [place] [address] ADMIT DATE: 07/27/20 SERVICE DATE: 08/03/20 Occupational Therapy Progress Note ATTENDING PHY: Marta Horvath [facility] TAMIA [facility] 08-03-2020 PROG [facility] Patient Name: ANDRE BLANCA [place] Date of : [address] [address] Unit Number: [id number] Progress Note-Hospitalist Patient Status: ADM IN Attending Doctor: Marta Horvath DO Service Date: 08/03/201727 Chief Complaint Chief Complaint Syncope Patient is a 70-year-old female with past medical history significant for CVA, hypothyroidism, COPD not on home oxygen, recurrent syncopal episodes presented to [facility] after a syncopal episode. Patient also [...] Ox 91 08/03 1540 B/P 119/69 08/03 1540 O2 Delivery NASAL CANNULA 08/03 154 O2 Flow Rate 2 08/03 1540 Temp [...] and Time Gloria Saxena MD Verified/Reviewed by 08/03/20 7080 [facility] Progress Note-Hospitalist [facility] PTPNon 08-03-2020 PT Progress Note [facility] PTPN Physical Therapy Inpatient Treatment Note Medical Diagnosis: 1. Acute hypoxemia respiratory failure 2. Syncope 3. Hypothyroidism Demographics: Age: 70Y Gender: Female Primary Language: [place] Preferred Language: [place] Rehabilitation Precautions/Restrictio ns: monitor BP fall risk [...] Activities: Bed mobility, sitting and standing balance, [facility] PATIENT NAME: ANDRE BLANCA [facility] Dr. Andrea MEDICAL REC #: [id number] [place] [address] ADMIT DATE: 07/27/20 SERVICE DATE: 08/03/20 Physical [...] contact the Acute Therapy Department at extension [phone] Location of Patient at End of Therapy Session: In chair, chair alarm in place, call light within reach Services: Total Billed: 28 minutes (Timed: 28, Untimed: 0) [facility] PAT[facility] MEDICAL REC #: [id number] [place] [address] ADMIT DATE: 07/27/20 SERVICE DATE: 08/03/20 Physical Therapy Progress Note ATTENDING PHY: Marta Horvath DO 28.00 Timed: [53335] THER ACTIVITIES / 15 MIN 0.00 Untimed: [] PT Treatment- General ORDER Signed by: RENALDO BENAVIDES PTA 08/03/2020 14:47:11 - CoSigned By: Jason Toth PT, DPT 08/03/2020 2:48:36 PM [facility] PATIENT NAME: ANDRE BLANCA Traci Andrea MEDICAL REC #: [id number] [place] [address] ADMIT DATE: 07/27/20 SERVICE DATE: 08/03/20 Physical Therapy Progress Note ATTENDING PHY: Marta Horvath DO [facility] Name: ANDRE BLANCA [address] Date of : [address] Unit Number: [id number] Progress Note-Hospitalist Patient Status: ADM IN Attending Doctor: Marta Horvath DO Service Date: 08/02/20 1517 Chief Complaint Chief Complaint Syncope Patient is a 70-year-old female with past medical history significant for CVA, hypothyroidism, COPD not on home oxygen, recurrent syncopal episodes presented to [facility] after a syncopal episode. Patient also [...] is aware that she is going to care home, pending placement at this time. Objective (ROS) Nursing Vitals Vital Signs (Last) Result Date Time Pulse Ox 93 08/02 1145 B/P 107/70 08/02 1145 O2 Delivery NASAL CANNULA 08/02 114 O2 Flow Rate 2 08/02 1145 Temp [...] Gloria Saxena MD Verified/Reviewed by 08/02/20 1518 [facility] Progress Note-Hospitalist [facility] 08-01-2020 PROG [facility] Patient Name: ANDRE BLANCA [address] Date of : [address] [place], [place] [address] Unit Number: [id number] Progress Note-Hospitalist Patient Status: ADM IN Attending Doctor: Marta Horvath DO Service Date: 08/01/20 9617 Chief Complaint Chief Complaint Syncope Patient is a 70-year-old female with past medical history significant for CVA, hypothyroidism, COPD not on home oxygen, recurrent syncopal episodes presented to [facility] after a syncopal episode. Patient also [...] 08/01 1551 O2 Delivery NASAL CANNULA 08/01 1551 O2 Flow Rate 3L 08/01 1551 Temp 98.2 08/01 155 Pulse 87 08/01 155 Resp 20 08/01 1551 Physical Exam Physical [...] Time Gloria Saxena MD Verified/Reviewed by 08/01/[address] [place] [address] Progress Note-Hospitalist [facility] OTPNon 07-31-2020 OT Progress Note Normal [facility] OT Occupational Therapy Inpatient Treatment Note Medical Diagnosis: 1. Acute hypoxemic respiratory failure 2. Syncope OCCUPATIONAL PROFILE AND HISTORY Demographics: Age: 70Y Gender: Female Primary Language: [place] Preferred Language: [place] Referring Service/Team: Medicine Rehabilitation Precautions/Restrictio ns: monitor [...] needed Toileting: A lot of help needed [facility] PATIENT NAME: ANDRE BLANCA [facility] Dr. Andrea MEDICAL REC #: [id number] [place] [address] ADMIT DATE: 07/27/20 SERVICE DATE: 07/31/20 Occupational [...] STRENGTH/PULMONARY ENDURANCE TO DO ADL PROJECTED WHILE [facility] PATIENT NAME: ANDRE BLANCAnadia Andrea MEDICAL REC #: [id number] [place] [address] ADMIT DATE: 07/27/20 SERVICE DATE: 07/31/20 Occupational Therapy Progress Note ATTENDING GIRISHY: Marta Horvath DO MAINTAINING O2 SATS ABOVE [...] contact the Acute Therapy Department at extension [phone] Communication to Nursing: No updates at this time. Location of Patient at End of Therapy Session: In chair, call light within reach Services: Total Billed: 25 minutes (Timed: 25, Untimed: 0) 25.00 Timed: [52177] ADL-HOME MANAGEMENT EA 15 MIN 0.00 Untimed: [] OT Treatment General ORDER Signed by: SIMONA Olmstead 07/31/2020 15:41:11 - CoSigned By: VASHTI Montejo OTR/Asuncion 07/31/2020 3:51:03 PM [facility] PATIENT NAME: ANDRE BLANCA [facility] Dr. Andrea MEDICAL REC #: [id number] [place] [address] ADMIT DATE: 07/27/20 SERVICE DATE: 07/31/20 Occupational Therapy Progress Note ATTENDING PHY: Marta Horvath DO Normal [facility] [place] PROG [facility] 07-31-2020 PROG [facility] Patient Name: ANDRE BLANCA [address] Date of : [address] [address] Unit Number: [id number] Progress Note-Hospitalist Patient Status: ADM IN Attending Doctor: Marta Horvath DO Service Date: 07/31/20 1550 Chief Complaint Chief Complaint Syncope Patient is a 70-year-old female with past medical history significant for CVA, hypothyroidism, COPD not on home oxygen, recurrent syncopal episodes presented to [facility] after a syncopal episode. Patient also [...] Gloria Saxena MD Verified/Reviewed by 07/31/20 1552 [facility]ist [facility]-2020 PT Progress Note [facility] PTPN Physical Therapy Inpatient Treatment Note Medical Diagnosis: 1. Acute hypoxemic respiratory failure 2. Syncope 3. Hypothyroidism Demographics: Age: 70Y Gender: Female Primary Language: [place] Preferred Language: [place] Rehabilitation Precautions/Restrictio ns: monitor BP fall risk [...] Modifier = CK Vital Signs: Not assessed. [facility] PATIENT NAME: ANDRE BLANCA [facility] Dr. Andrea MEDICAL REC #: [id number] [place] [address] ADMIT DATE: 07/27/20 SERVICE DATE: 07/31/20 Physical Therapy Progress Note ATTENDING DAMIAN: Marta Horvath DO Interventions: Therapeutic Activities: SUPINE [...] Physical Therapy, LESS THAN 60 minutes per [facility] PATIENT NAME: ANDRE BLANCA [facility] Dr. Andrea MEDICAL REC #: [id number] [place] [address] ADMIT DATE: 07/27/20 SERVICE DATE: 07/31/20 Physical Therapy Progress Note ATTENDING DAMIAN: Marta Horvath. Recommended Equipment: None issued this visit. Recommended Consults: None currently. Development of Plan of Care: There was no change to plan of care today. If there are any questions regarding this service, please contact the Acute Therapy Department at extension [phone] Location of Patient at End of Therapy Session: In chair, call light within reach Services: Total Billed: 30 minutes (Timed: 30, Untimed: 0) 10.00 Timed: [10268] THER ACTIVITIES / 15 MIN 20.00 Timed: [22547] THERAPEUTIC EXERCISE EA 15 MIN 0.00 Untimed: [] PT Treatment- General ORDER Signed by: Kiki Cheugn PT 07/31/2020 15:34:50 [facility] PATIENT NAME: ANDRE BLANCA [address] [place] [address] Dr. Andrea MEDICAL REC #: [id number] [place] [id number] ADMIT DATE: 07/27/20 SERVICE DATE: 07/31/20 Physical Therapy Progress Note ATTENDING PHY: Marta Horvath DO Normal [facility] BMPon 07-30-2020 Anion gap [Moles/Vol] 5 mmol/L Normal 5-16 [facility] Comment on above: Order Comment: Maciel s: M Minimal Draw: Y Performed By: #### L 500.36006, L500.33003 #### [facility] [address] [place] [address] Calcium [Mass/Vol] 9.2 mg/dL Normal 8.5-10.5 [facility] Comment on above: Order Comment: Abundiou s: M Minimal Draw: Y Result Comment: NOTE NEW NORMAL RANGE DUE TO REAGENT CHANGE Performed By: #### L 500.36939, L500.72630 #### [facility] [address] [place] [address] Chloride [Moles/Vol] 105 mmol/L Normal 98-107 [facility] Comment on above: Order Comment: Maciel s: M Minimal Draw: Y Performed By: #### L 500.52947, L500.67142 #### [facility] [address] [place], [place] [address] CO2 [Moles/Vol] 30.0 mmol/L Normal 21-[address] [facility] Comment on above: Order Comment: Maciel s: M Minimal Draw: Y Performed By: #### L 500.06175, L500.30275 #### [facility] [address] [place] [address] Creatinine [Mass/Vol] 0.94 mg/dL Normal 0.510-0.950 [facility] Comment on above: Order Comment: Maciel s: M Minimal Draw: Y Result Comment: Geraldine ents receiving either N-Acetylcysteine (NAC) or Metamizole prior to venipuncture, may have falsely depressed results. Performed By: #### L 500.02906, L500.78502 #### [facility] [address] [place] [address] Glucose [Mass/Vol] 136 mg/dL High 70-[address] [facility] Comment on above: Order Comment: Maciel s: M Minimal Draw: Y Result Comment: 70-1 00- Normal Fasting; 100-125 Impaired Fasting; greater than 126 on more than one result- Diabetes. ADA guidelines. Results may be falsely elevated after the administration of Sulfapyridine. Results may be falsely depressed after the administration of Sulfasalazine. Performed By: #### L 500.16360, L500.55338 #### [facility] [address] [place] [address] Potassium [Moles/Vol] 3.8 mmol/L Normal 3.5-5.1 [facility] Comment on above: Order Comment: Maciel s: M Minimal Draw: Y Result Comment: Slig ht Hemolysis, Result may be affected. Performed By: #### L 500.10229, L500.55080 #### [facility] [address] [place] [address] Sodium [Moles/Vol] 140 mmol/L Normal 136-[address] [facility] Comment on above: Order Comment: Campu s: M Minimal Draw: Y Performed By: #### L 500.13671, L500.06160 #### [facility] [address] [place] [address] Urea nitrogen [Mass/Vol] 10 mg/dL Normal 7- [facility] Comment on above: Order Comment: Campu s: M Minimal Draw: Y Performed By: #### L 500.62777, L500.48911 #### [facility] [address] [place] [address] Urea nitrogen/Creatinine [Mass ratio] 11 mg/mg Low 15-[address] [facility] Comment on above: Order Comment: Abundiou s: M Minimal Draw: Y Performed By: #### L 500.31967, L500.93000 #### [facility] [address] [place] [address] GFR ESTon 07-30-2020 IF AMER Greater than 60 Normal [facility] Comment on above: Order Comment: Abundiou s: M Minimal Draw: Y Performed By: #### L 500.22336, L500.80426 #### [facility] [address] [place] [address] IF non-AFR AMER [address] [facility] Comment on above: Order Comment: Abundiou s: M Minimal Draw: Y Performed By: #### L 500.30239, L500.87397 #### [facility] [address] [place] [address] OTPNon 07-30-2020 OT Progress Note Normal [facility] OTPN Occupational Therapy Inpatient Treatment Note Medical Diagnosis: 1. Acute hypoxemic respiratory failure 2. Syncope OCCUPATIONAL PROFILE AND HISTORY Demographics: Age: 70Y Gender: Female Primary Language: [place] Preferred Language: [place] Referring Service/Team: Medicine Rehabilitation Precautions/Restrictio ns: monitor [...] needed Eating a Meal: No help needed [facility] PATIENT NAME: ANDRE BLANCA [facility] Dr. Andrea MEDICAL REC #: [id number] [place] [address] ADMIT DATE: 07/27/20 SERVICE DATE: 07/30/20 Occupational [...] I SELF CARE - Not Met: Ongoing [facility] PATIENT NAME: ANDRE BLANCA [facility] Dr. Andrea MEDICAL REC #: [id number] [place] [address] ADMIT DATE: 07/27/20 SERVICE DATE: 07/30/20 Occupational Therapy Progress Note ATTENDING GIRISHY: Marta Horvath DO 2. MOD I FUNCTIONAL [...] contact the Acute Therapy Department at extension [phone] Communication to Nursing: No updates at this time. Location of Patient at End of Therapy Session: Left in care of transport team Services: Total Billed: 24 minutes (Timed: 24, Untimed: 0) 14.00 Timed: [24650] ADL-HOME MANAGEMENT EA 15 MIN 10.00 Timed: [18621] THERAPEUTIC EXERCISE EA 15 MIN 0.00 Untimed: [] OT Treatment General ORDER Signed by: SIMONA Olmstead 07/30/2020 13:43:37 - CoSigned By: KASEY MINAYA 07/30/2020 2:26:48 PM [facility] MEDICAL REC #: [id number] [place] [address] ADMIT DATE: 07/27/20 SERVICE DATE: 07/30/20 Occupational Therapy Progress Note ATTENDING DAMIAN: Marta Horvath [facility]: [facility] [place] Date of : [address] [id number] Unit Number: [id number] Progress Note-Hospitalist Patient Status: ADM IN Attending Doctor: Marta Horvath DO Service Date: 07/30/20 1501 Chief Complaint Chief Complaint Syncope Patient is a 70-year-old female with past medical history significant for CVA, hypothyroidism, COPD not on home oxygen, recurrent syncopal episodes presented to [facility] after a syncopal episode. Patient also [...] Ox 94 07/30 1415 B/P 124/67 07/30 1415 O2 Delivery NASAL CANNULA 07/30 141 O2 Flow Rate 2L 07/30 1415 Temp 98.2 07/30 1415 Pulse 86 07/30 1415 Resp 20 07/30 1415 Physical Exam Physical Examination Notes Awake and alert oriented x4 anxious HEENT atraumatic normocephalic Neck supple no JVP thyromegaly Lungs clear to auscultation bilateral no wheezes rhonchi Cardiovascular normal S1-S2 regular rate and rhythm Abdomen soft nontender nondistended positive bowel sounds Extremities no cyanosis clubbing edema [employer] no focal deficit Musculoskeletal mild limitation of [...] Edilma Wolf MD Verified/Reviewed by 07/30/20 1503 [facility] Progress Note-Hospitalist [facility] PTPNon 07-30-2020 PT Progress Note [facility] PTPN Physical Therapy Inpatient Treatment Note Medical Diagnosis: 1. Acute hypoxemic respiratory failure 2. Syncope 3. Hypothyroidism Demographics: Age: 70Y Gender: Female Primary Language: [place] Preferred Language: [place] Rehabilitation Precautions/Restrictio ns: monitor BP fall risk [...] to Chair: A lot of help needed [facility] PATIENT NAME: ANDRE BLANCA [facility] Dr. Andrea MEDICAL REC #: [id number] [place] [address] ADMIT DATE: 07/27/20 SERVICE DATE: 07/30/20 Physical [...] 90's w/ rest and pursed lip breathing. SHA Vega made aware Interventions: Gait Training: Bed mobility, [...] no change to plan of care today. [facility] PATIENT NAME: ANDRE BLANCA [facility] Dr. Andrea MEDICAL REC #: [id number] [place] [address] ADMIT DATE: 07/27/20 SERVICE DATE: 07/30/20 Physical Therapy Progress Note ATTENDING PHY: Marta Horvath DO If there are any questions regarding this service, please contact the Acute Therapy Department at extension [phone] Location of Patient at End of Therapy Session: In chair, call light within reach Services: Total Billed: 29 minutes (Timed: 29, Untimed: 0) 29.00 Timed: [90302] GAIT TRAIN EA 15 MIN 0.00 Untimed: [] PT Treatment- General ORDER Signed by: RENALDO BENAVIDES, [employer] 07/30/2020 12:21:52 - CoSigned By: Alivia Patel PT 07/30/2020 3:10:43 PM [facility] PATIENT NAME: ANDRE BLANCA [address] [facility] [address] Andrea MEDICAL REC #: [id number] [place] [address] ADMIT DATE: 07/27/20 SERVICE DATE: 07/30/20 Physical Therapy Progress Note ATTENDING PHY: Marta Horvath DO Normal [facility] BMPon 07-29-2020 Anion gap [Moles/Vol] 4 mmol/L Low - [facility] Comment on above: Order Comment: Abundiou s: M What is the source? URINE Performed By: #### M 150.55847, M150.01851 #### [facility] [place] [address] Calcium [Mass/Vol] 8.9 mg/dL Normal 8.5-10.[address] [facility] Comment on above: Order Comment: Abundiou s: M What is the source? URINE Result Comment: NOTE NEW NORMAL RANGE DUE TO REAGENT CHANGE Performed By: #### M 150.59271, M150.69189 #### [facility] [address] [place] [address] Chloride [Moles/Vol] 106 mmol/L Normal 98-107 [facility] Comment on above: Order Comment: Campu s: M What is the source? URINE Performed By: #### M 150.74899, M150.34051 #### [facility] [address] [place] [address] CO2 [Moles/Vol] 30.0 mmol/L Normal 21-[address] [facility] Comment on above: Order Comment: Campu s: M What is the source? URINE Performed By: #### M 150.78029, M150.53873 #### [facility] [address] [place] [address] Creatinine [Mass/Vol] 1.07 mg/dL High 0.510-0.950 [facility] Comment on above: Order Comment: Campu s: M What is the source? URINE Result Comment: Geraldine ents receiving either N-Acetylcysteine (NAC) or Metamizole prior to venipuncture, may have falsely depressed results. Performed By: #### M 150.25038, M150.27781 #### [facility] [place] [address] Glucose [Mass/Vol] 110 mg/dL High 70-[address] [facility] Comment on above: Order Comment: Campu s: M What is the source? URINE Result Comment: 70-1 00- Normal Fasting; 100-125 Impaired Fasting; greater than 126 on more than one result- Diabetes. ADA guidelines. Results may be falsely elevated after the administration of Sulfapyridine. Results may be falsely depressed after the administration of Sulfasalazine. Performed By: #### M 150.13322, M150.66951 #### [facility] [address] [place] [address] Potassium [Moles/Vol] 3.5 mmol/L Normal 3.5-5.1 [facility] Comment on above: Order Comment: Campu s: M What is the source? URINE Performed By: #### M 150.29913, M150.92804 #### [facility] [address] [place] [address] Sodium [Moles/Vol] 140 mmol/L Normal 136-[address] [facility] Comment on above: Order Comment: Campu s: M What is the source? URINE Performed By: #### M 150.44953, M150.91790 #### [facility] [place] [address] Urea nitrogen [Mass/Vol] 12 mg/dL Normal 7-[address] [facility] Comment on above: Order Comment: Campu s: M What is the source? URINE Performed By: #### M 150.92287, M150.26396 #### [facility] [address] [place], [place] [address] Urea nitrogen/Creatinine [Mass ratio] 11 mg/mg Low 15-[address] [facility] Comment on above: Order Comment: Campu s: M What is the source? URINE Performed By: #### M 150.07046, M150.54090 #### [facility] [address] [place] [address] CBC W/DIFFon 07-29-2020 BASO ABS 0.10 K/CU MM Normal 0-0.[address] [facility] Comment on above: Order Comment: Campu s: M Minimal Draw: Y Performed By: #### L 500.54570, L500.47749 #### [facility] [address] [place] [address] Basophils/100 WBC (Bld) 1.0 % Normal 0-2 [facility] Comment on above: Order Comment: Campu s: M Minimal Draw: Y Performed By: #### L 500.70546, L500.66737 #### [facility] [address] [place] [address] EOS ABS 0.30 K/CU MM Normal 0-0.[address] [facility] Comment on above: Order Comment: Campu s: M Minimal Draw: Y Performed By: #### L 500.43351, L500.17555 #### [facility] [address] [place] [address] Eosinophils/100 WBC (Bld) 3.3 % Normal 0-[address] [facility] Comment on above: Order Comment: Campu s: M Minimal Draw: Y Performed By: #### L 500.23626, L500.69702 #### [facility] [address] [place], [place] [address] Erythrocyte distribution width (RBC) [Ratio] 14.3 % Normal 11-14.[address] [facility] Comment on above: Order Comment: Campu s: M Minimal Draw: Y Performed By: #### L 500.39989, L500.54812 #### [facility] [address] [place] [address] Hematocrit (Bld) [Volume fraction] 33.4 % Low 35.0-47.[address] [facility] Comment on above: Order Comment: Campu s: M Minimal Draw: Y Performed By: #### L 500.33065, L500.25652 #### [facility] [address] [place] [address] Hemoglobin (Bld) [Mass/Vol] 10.7 g/dL Low 11.5-15.[address] [facility] Comment on above: Order Comment: Campu s: M Minimal Draw: Y Result Comment: Repe ated and verified. Performed By: #### L 500.16609, L500.15337 #### [facility] [address] [place] [address] IMMATR GRAN ABS 0.00 K/CU MM Normal Less than [address] [facility] Comment on above: Order Comment: Campu s: M Minimal Draw: Y Performed By: #### L 500.83024, L500.51933 #### [facility] [address] [place] [address] IMMATURE GRAN % 0.3 % Normal Less than [address] [facility] Comment on above: Order Comment: Campu s: M Minimal Draw: Y Performed By: #### L 500.42084, L500.59416 #### [facility] [address] [place] [address] Lymphocytes (Bld) [#/Vol] 1.70 K/CU MM Normal 0.9-4.[address] [facility] Comment on above: Order Comment: Abundiou s: M Minimal Draw: Y Performed By: #### L 500.44231, L500.50758 #### [facility] [address] [place] [address] Lymphocytes/100 WBC (Bld) 21.9 % Normal 20-[address] [facility] Comment on above: Order Comment: Abundiou s: M Minimal Draw: Y Performed By: #### L 500.91932, L500.63742 #### [facility] [address] [place] [address] MCHC (RBC) [Mass/Vol] 32.0 g/dL Normal 32.0-36.0 [facility] Comment on above: Order Comment: Abundiou s: M Minimal Draw: Y Performed By: #### L 500.82545, L500.36686 #### [facility] [address] [place] [address] MCV (RBC) [Entitic vol] 93.8 fL Normal 80.0-99.0 [facility] Comment on above: Order Comment: Abundiou s: M Minimal Draw: Y Performed By: #### L 500.48344, L500.78385 #### [facility] [address] [place] [address] MONO ABS 0.50 K/CU MM Normal 0.1-1.[address] [facility] Comment on above: Order Comment: Abundiou s: M Minimal Draw: Y Performed By: #### L 500.89420, L500.91937 #### [facility] [address] [place] [address] Monocytes/100 WBC (Bld) 6.4 % Normal 2-10 [facility] Comment on above: Order Comment: Abundiou s: M Minimal Draw: Y Performed By: #### L 500.21489, L500.81907 #### [facility] [address] [place] [address] NEUTROPHIL ABS 5.30 K/CU MM Normal 2.0-8.[address] [facility] Comment on above: Order Comment: Abundiou s: M Minimal Draw: Y Performed By: #### L 500.36966, L500.44537 #### [facility] [address] [place] [address] Neutrophils/100 WBC (Bld) 67.1 % Normal 45-[address] [facility] Comment on above: Order Comment: Campu s: M Minimal Draw: Y Performed By: #### L 500.30634, L500.24677 #### [facility] [address] [place] [address] Nucleated RBC/100 WBC (Bld) [Ratio] 0.0 % Normal Less than [address] [facility] Comment on above: Order Comment: Campu s: M Minimal Draw: Y Performed By: #### L 500.01839, L500.34889 #### [facility] [address] [place] [address] Platelet mean volume (Bld) [Entitic vol] 10.4 fL Normal 9.4-12.[address] [facility] Comment on above: Order Comment: Campu s: M Minimal Draw: Y Performed By: #### L 500.74910, L500.52146 #### [facility] [address] [place] [address] Platelets (Bld) [#/Vol] 200 K/CU MM Normal 150-[address] [facility] Comment on above: Order Comment: Campu s: M Minimal Draw: Y Performed By: #### L 500.95701, L500.78520 #### [facility] [address] [place], [place] [address] RBC (Bld) [#/Vol] 3.56 M/CU MM Low 3.90-5.[address] [facility] Comment on above: Order Comment: Campu s: M Minimal Draw: Y Performed By: #### L 500.29979, L500.70542 #### [facility] [address] [place], [place] [address] WBC (Bld) [#/Vol] 7.9 K/CUMM Normal 4.5-11.[address] [facility] Comment on above: Order Comment: Campu s: M Minimal Draw: Y Performed By: #### L 500.36879, L500.37949 #### [facility] [address] [place] [address] GFR ESTon 07-29-2020 IF AMER Greater than 60 Normal [facility] Comment on above: Order Comment: Campu s: M What is the source? URINE Performed By: #### M 150.94582, M150.08468 #### [facility] [address] [place] [address] IF non-AFR AMER [address] [facility] Comment on above: Order Comment: Campu s: M What is the source? URINE Performed By: #### M 150.93990, M150.57650 #### [facility] [address] [place] [address] LEGIONELLA ANTIon 07-29-2020 LEGIONELLA ANTI LEGIONELLA ANTIGEN NEGATIVE FOR LEGIONELLA PNEUMOPHILA SEROGROUP [address] [facility] Comment on above: Order Comment: Campu s: M What is the source? URINE Performed By: #### M 150.52715, M150.17153 #### [facility] [place] [address] LEGIONELLA ANTI This report has been cancelled [facility] Comment on above: Order Comment: Campu s: M What is the source? URINE OTPNon 07-29-2020 OT Progress Note Normal [facility] OTPN Occupational Therapy Inpatient Missed Visit Note [...] contact the Acute Therapy Department at extension [phone] Services: Total Billed: 0 minutes (Timed: 0, Untimed: 0) 0.00 Untimed: [] OT Treatment General ORDER Signed by: KASEY MINAYA 07/29/2020 14:52:33 [facility] Andrea MEDICAL REC #: [id number] [place] [address] ADMIT DATE: 07/27/20 SERVICE DATE: 07/29/20 Occupational Therapy Progress Note ATTENDING PHY: Marta Horvath DO [facility] PNEUMO ANTIGENon 07-29-2020 PNEUMO ANTIGEN S PNEUMONIAE ANTIGEN PRESUMPTIVE NEGATIVE FOR STREP PNEUMONIAE ANTIGEN [facility] Comment on above: Order Comment: Maciel s: M What is the source? URINE Performed By: #### M 150.69579, M150.73191 #### [facility] [address] [place] [address]# [phone] PNEUMO ANTIGEN This report has been cancelled [facility] Comment on above: Order Comment: Campu s: M What is the source? URINE PROG [facility] 07-29-2020 PROG [facility]: [facility] Date of : [address] [address] Unit Number: [id number] Progress Note-Hospitalist Patient Status: ADM IN Attending Doctor: Marta Horvath DO Service Date: 07/29/20 0959 Chief Complaint Chief Complaint Syncope Patient is a 70-year-old female with past medical history significant for CVA, hypothyroidism, COPD not on home oxygen, recurrent syncopal episodes presented to [facility] after a syncopal episode. Patient also [...] Pulse 82 07/29 0750 Resp 16 07/29 0750 O2 Delivery NASAL CANNULA 07/29 0028 O2 Flow Rate 2 07/29 0028 Physical Exam Physical Examination Notes General: Pt [...] rash noticed. Diagnostic Data: Lab 24hr ([facility]) 07/29/20 0526: [Embedded Image Not Available] [...] Time Gloria Saxena MD Verified/Reviewed by 07/29/[address] [place] [address] Progress Note-Hospitalist [facility] 07[facility]29-[facility] PT Progress Note [facility] PTPN Physical Therapy Inpatient Missed Visit [...] contact the Acute Therapy Department at extension [phone] Services: Total Billed: 0 minutes (Timed: 0, Untimed: 0) 0.00 Untimed: [] PT Treatment- General ORDER Signed by: RENALDO BENAVIDES PTA 07/29/2020 16:28:14 - CoSigned By: JRAAD SMALLS, PT 07/29/2020 4:32:10 PM [facility] PATIENT NAME: ANDRE BLANCA [facility] Dr[facility] Andrea MEDICAL REC #: [id number] [place] [address] ADMIT DATE: 07/27/20 SERVICE DATE: 07/29/20 Physical Therapy Progress Note ATTENDING GIRISHY: Marta Horvath DO Normal [facility] RESP/SPUT CULTon 07-29-2020 RESP/SPUT CULT This report has been cancelled [facility] Comment on above: Order Comment: Maciel joe: Ramiro What is the source? URINE D-DIMERon 07-28-2020 D-DIMER 660.0 ng/mlFEU High 0-[address] [facility] Comment on above: Order Comment: Maciel s: Ramiro Minimal Draw: Y Result Comment: This test [...] confirmatory diagnostic marker. Performed By: #### L 500.92369, L500.26433 #### [facility] [address]# [phone] Jolanta 07-28-2020 EMERGENCY PHYSICIAN REPORT This is a preliminary report only, as the practitioner review and authentication has not occurred. [facility] ER PHYSICIAN ASSESSMENT RECORDS : FlexChartData Event Time: 07/27/2020 18:30 Status: Signed [facility] Andre Blanca [[id number]] Attending Physician 70 / F / 1950 Chart (V2b) Chart created at 07/27/2020 17:51 by Juan Manuel Skelton Chart closed at 07/27/2020 17:55 Entry in Emergency Department at 07/27/2020 13:46 Patient Name: Andre Blanca Record Number: [id number] Date: 07/27/2020 17:51 Entered Department at: 07/27/2020 13:46 Patient Seen at: 07/27/2020 14:32 Decision to Admit at: 07/27/2020 17:55 Historian: EMS and Patient PCP: [facility] Chief Complaint:SYCOPE. trauma stand [...] Onset; Quality: Aching and Dull; Severity: maximum [facility] PATIENT NAME: ANDRE BLANCA [address] [facility] [address] Andrea MEDICAL REC #: [id number] [place] [address] EMERGENCY DEPARTMENT REPORT EMERGENCY DEPARTMENT PHYSICIAN Moderate, [...] Non-tender and Soft Back: Non-tender Neurological: No [facility] PATIENT NAME: ANDRE BLANCA [facility] Dr[facility] Andrea MEDICAL REC #: [id number] [place] [address] EMERGENCY DEPARTMENT REPORT EMERGENCY DEPARTMENT PHYSICIAN Gross [...] Juan Manuel Skelton MD 07/27/2020 2:10 PM [facility] PATIENT NAME: ANDRE BLANCA [place] Andrea MEDICAL REC #: [id number] [place] [address] EMERGENCY DEPARTMENT REPORT EMERGENCY DEPARTMENT PHYSICIAN CT [...] scattered along the jugular chains. There is [facility] PATIENT NAME: ANDRE BLANCA [facility] Dr[facility] Andrea MEDICAL REC #: [id number] [place] [address] EMERGENCY DEPARTMENT REPORT EMERGENCY DEPARTMENT PHYSICIAN no neck mass or fluid collection.. IMPRESSION: No acute osseous abnormality. Multilevel degenerative disk disease and facet arthropathy Dictated by Pig Iron Loader: Jennifer Cobb DO Reviewed and Signed by: Kwesi Houston MD ---- Electronic Signature on File ---- Signed By: Kwesi Houston MD [email or web address] Dictated: 07/27/2020 3:00 PM Signed: 07/27/2020 3:22 [...] obtained the posterior fossa with 5 mm [facility] PATIENT NAME: [facility] REC #: [id number] [place] [address] EMERGENCY DEPARTMENT REPORT EMERGENCY DEPARTMENT PHYSICIAN thick [...] age-related and chronic ischemic changes. Dictated by Pig Iron Loader: Jennifer Cobb DO Reviewed and Signed by: Kwesi Houston MD ---- Electronic Signature on File ---- Signed By: Kwesi Houston MD [facility] PATIENT NAME: ANDRE BLANCA Traci Andrea MEDICAL REC #: [id number] [place] [address] EMERGENCY DEPARTMENT REPORT EMERGENCY DEPARTMENT PHYSICIAN [email or web address] Dictated: 07/27/2020 2:55 PM Signed: 07/27/2020 3:18 [...] lung base, possible atelectasis versus early pneumonia. [facility] PATIENT NAME: ANDRE BLANCA [facility] Dr. Andrea MEDICAL REC #: [id number] [place] [address] EMERGENCY DEPARTMENT REPORT EMERGENCY DEPARTMENT PHYSICIAN Dictated by Pig Iron Loader: Jennifer Cobb DO Reviewed and Signed by: Laz Funk MD ---- Electronic Signature on File ---- Signed By: Laz Funk MD [email or web address] Dictated: 07/27/2020 4:58 PM Signed: 07/27/2020 5:07 [...] 1. Acute exacerbation of COPD with hypoxia [facility] PATIENT NAME: ANDRE BLANCA [facility] Dr. Andrea MEDICAL REC #: [id number] [place] [address] EMERGENCY DEPARTMENT REPORT EMERGENCY DEPARTMENT PHYSICIAN 2. 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 trauma stand by. ambulatory. Arrival Date: 07/27/2020 13:46 Triage Date: 07/27/2020 13:47 Mode of Arrival: Ambulance WC: N Language: [place] Transport: [facility] BED E37 In: 07/27/2020 13:49:13 07/27/2020 13:49:13 JLTA E37 (Removed From) Out: 07/27/2020 22:50:14 07/27/2020 22:50:14 KTDA PROVIDERS Emergency Medical Service Provider Contact: 07/27/2020 13:47:31 EMS End: [facility] PATIENT NAME: ANDRE BLANCA [facility] Dr. Andrea MEDICAL REC #: [id number] [place] [address] EMERGENCY DEPARTMENT REPORT EMERGENCY DEPARTMENT PHYSICIAN SHA CHUNG Provider Contact: 07/27/2020 14:01:38 LMSB End: MD Juan Manuel Skelton Provider Contact: 07/27/2020 14:32:08 MW End: SHA BALLESTEROS Provider Contact: 07/27/2020 15:40:20 [...] Illness: Irritable Bowel Syndrome 07/27/2020 13:49 JLTA [facility] PATIENT NAME: ANDRE BLANCA [facility] Dr. Andrea MEDICAL REC #: [id number] [place] [address] EMERGENCY DEPARTMENT REPORT EMERGENCY DEPARTMENT PHYSICIAN Illness: [...] Pneumonia Vaccine-yes 07/27/2020 13:49 JLTA NURSING ASSESSMENT [facility] PATIENT NAME: [facility] Andrea MEDICAL REC #: [id number] [place] [address] EMERGENCY DEPARTMENT REPORT EMERGENCY DEPARTMENT PHYSICIAN Respiratory [...] Activation - 2. Trauma Standby Called @ [phone] 07/27/2020 15:24 LMSB 07/27/2020 17:47 Physician Call - Dr. IGLESIAS called at [phone] 07/27/2020 17:48 VLB [facility] PATIENT NAME: ANDRE BLANCA [facility] Dr. Adnrea MEDICAL REC #: [id number] [place] [address] EMERGENCY DEPARTMENT REPORT EMERGENCY DEPARTMENT PHYSICIAN 07/27/2020 17:47 Physician Call - Dr. HORVATH answered at 1726 07/27/2020 17:48 VLB MEDICATIONS IV I AND O [...] KTDA ORDERS Admit patient 07/27/2020 18:08 N/A [facility] PATIENT NAME: ANDRE BLANCA [facility] Dr. Andrea MEDICAL REC #: [id number] [place] [address] EMERGENCY DEPARTMENT REPORT EMERGENCY DEPARTMENT PHYSICIAN Ordered: [...] Manuel Skelton Noted Time: 07/27/2020 16:13 KTDA REMOTE SENSING SPECIALIST ORDER: GFRP 07/27/2020 15:32 None Ordered: 07/27/2020 [...] Time: 07/27/2020 18:37 By Juan Manuel Skelton [facility] PATIENT NAME: ANDRE BLANCA [facility] Dr. Andrea MEDICAL REC #: [id number] [place] [address] EMERGENCY DEPARTMENT REPORT EMERGENCY DEPARTMENT PHYSICIAN Noted [...] By Juan Manuel Skelton Cancelled: 07/27/2020 15:17 [facility] Cancelled Reason: Wrong patient Consult Psych Triage 07/27/2020 15:17 N/A Ordered: 07/27/2020 15:15 By Juan Manuel Skelton [facility] PATIENT NAME: ANDRE BLANCA Dr. Andrea MEDICAL REC #: [id number] [place] [address] EMERGENCY DEPARTMENT REPORT EMERGENCY DEPARTMENT PHYSICIAN Cancelled: 07/27/2020 15:17 [facility] Cancelled Reason: Wrong patient DISCHARGE Diagnosis: Acute exacerbation of COPD with hypoxia, Acute left lobe pneumonia with suspected COVID-19 pneumonitis, Acute syncopal episode, Acute cervical strain 07/27/2020 17:55 Disposition: Time: 07/27/2020 17:55 Discharge Time: 07/27/2020 22:50 Type: Admission Condition: Stable for admission/discharge/tr ansfer after emergency evaluation/treatment Category: *NOT APPLICABLE Referral: 07/27/2020 17:55 Admit To: *Bed Type - Telemetry Admit Physician: [facility] PRESCRIPTIONS CHARGES SIGNATURE Juan Manuel Skelton MD [facility] BHARAT CHUNG RN LMSB JAMAAL HAWKINS [facility] PATIENT NAME: ANDRE BLANCA [facility] MEDICAL REC #: [id number] [place] [address] EMERGENCY DEPARTMENT REPORT EMERGENCY DEPARTMENT PHYSICIAN Normal [facility] LIVERon 07-28-2020 Albumin [Mass/Vol] 3.7 g/dL Normal 3.2-5.[address] [facility] Comment on above: Order Comment: Campu s: M Performed By: #### L 500.74325 ####[facility] [id number] [place], [place] [address]Ce# [phone] Albumin/Globulin [Mass ratio] 1.2 {ratio} Normal 0.8-2.[address] [facility] Comment on above: Order Comment: Campu s: M Performed By: #### L 500.05161 ####[facility] [id number] [place], [place] [address]Ch# [phone] ALK PHOS 132 U/L High 45-[address] [facility] Comment on above: Order Comment: Campu s: M Performed By: #### L 500.06536 ####[facility] [id number] [place] [address]Oc# [phone] ALT [Catalytic activity/Vol] 9 U/L Low 13-[address] [facility] Comment on above: Order Comment: Campu s: M Result Comment: RESU LTS MAY BE FALSELY DEPRESSED AFTER THE ADMINISTRATION OF SULFASALAZINE AND/OR SULFAPYRIDINE. Performed By: #### L 500.19526 ####[facility] [id number] [place], [place] [address]Gy# [phone] BILI DIRECT 0.2 MG/DL Normal 0.00-0.[address] [facility] Comment on above: Order Comment: Campu s: M Result Comment: NOTE NEW NORMAL RANGE DUE TO REAGENT CHANGE Performed By: #### L 500.90039 ####[facility] [id number] [place], [place] [address]Jq# [phone] BILI TOTAL 0.50 MG/DL Normal 0.2-1.[address] [facility] Comment on above: Order Comment: Campu s: M Performed By: #### L 500.52688 ####[facility] [id number] [place], [place] [address]Xj# [phone] Globulin (S) [Mass/Vol] 3.1 g/dL Normal 2.2-4.2 [facility] Comment on above: Order Comment: Campu s: M Performed By: #### L 500.90810 ####[facility] [id number] [place], [place] [address]Qx# [phone] Protein [Mass/Vol] 6.8 g/dL Normal 6.0-8.[address] [facility] Comment on above: Order Comment: Campu s: M Performed By: #### L 500.23150 ####[facility] [id number] [place], [place] [address]Oq# [phone] SGOT (AST) 19 U/L Normal 8-[address] [facility] Comment on above: Order Comment: Campu s: M Result Comment: RESU LTS MAY BE FALSELY DEPRESSED AFTER THE ADMINISTRATION OF SULFASALAZINE AND/OR SULFAPYRIDINE. Performed By: #### L 500.45425 ####[facility] [id number] [place], [place] [address]Xb# [phone] [facility] OT Assessment Report Normal [facility] OTAR Occupational Therapy Inpatient Evaluation Medical Diagnosis: 1. Acute hypoxemic respiratory failure 2. Syncope OCCUPATIONAL PROFILE AND HISTORY Therapy Diagnosis: Rank Code Description 1 Z74.1 Need for assistance with personal care 2 R06.02 Shortness of breath 3 R26.81 Unsteadiness on feet 4 R55 Syncope and collapse Demographics: Age: 70Y Gender: Female Primary Language: [place] Preferred Language: [place] Referring Service/Team: Medicine Past Medical History: PMHx: Chronic COPD, Hx CVA prior without deficits but prior had L sided weakness, Hypothyroidism, Hx Migraines, Bipolar Disorder, IBS, Obesity. Past Surgical History Hysterectomy, appendectomy, right upper extremity surgery, cholecystectomy. History of Present Illness: 07/27/20 Additional Information: Chief Complaint/Present Illness: Syncope History of Present Illness 70-year-old female, [facility] [place], past medical history CVA, hypothyroidism, COPD not on home oxygen, recurrent syncopal episodes in the past that she states have been worked up by her physicians [facility] the [facility], testing done at the [facility] and here at [facility], concluding that she has "low blood [...] shows normal sinus rhythm with right bundle [facility] PATIENT NAME: ANDRE BLANCA [facility] Dr. Andrea MEDICAL REC #: [id number] [place] [address] ADMIT DATE: 07/27/20 SERVICE DATE: 07/28/20 Occupational Therapy Assessment ATTENDING DAMIAN: Marta Horvath DO branch block which is [...] assistance from another person to complete activities. 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 SHE WAS HAVING AIDE COME 5 DAYS A WK FOR 2 HOURS A DAY TO ASSIST W/ HOUSEWORK BUT AIDE GOT ANOTHER JOB AND THEY HAVE NOT REPLACED HER WITH ANYONE ELSE. Patient/Caregiver Goals: Patient's functional goals: BE ABLE TO MANAGE AT HOME W/O FALLING [facility] PATIENT NAME: ANDRE BLANCA [facility] Dr. Andrea MEDICAL REC #: [id number] [place] [address] ADMIT DATE: 07/27/20 SERVICE DATE: 07/28/20 Occupational [...] FLOOR. USES ROLLATOR SEAT TO TRANSPORT LAUNDRY, PICKER/PULLER, SOCK SIDE, HOSPITAL BED Marital Status: W [...] = 40.22 and G-Code Modifier = CK [facility] PATIENT NAME: ANDRE BLANCA [facility] Dr. Andrea MEDICAL REC #: [id number] [place] [address] ADMIT DATE: 07/27/20 SERVICE DATE: 07/28/20 Occupational Therapy Assessment ATTENDING DAMIAN: Marta Horvath DO Functional Mobility: Bed Mobility: [...] care. Safety. Respiratory function. Functional activities/mobility. Equipment. [facility] PATIENT NAME: ANDRE BLANCA [facility] Dr. Andrea MEDICAL REC #: [id number] [place] [address] ADMIT DATE: 07/27/20 SERVICE DATE: 07/28/20 Occupational Therapy Assessment ATTENDING GIRISHY: Marta Horvath DO Education Provided: Plan of [...] Patient participated in plan of care development [facility] PATIENT NAME: ANDRE BLANCA [facility] Dr. Andrea MEDICAL REC #: [id number] [place] [address] ADMIT DATE: 07/27/20 SERVICE DATE: 07/28/20 Occupational Therapy Assessment ATTENDING DAMIAN: Marta Horvath DO today. If there are any questions regarding this service, please contact the Acute Therapy Department at extension [phone] CARE WILL BE TRANSFERRED TO THE (CHOICE OF ACUTE OR REHAB) OCCUPATIONAL THERAPIST" Communication to Nursing: No updates at this time. Location of Patient at End of Therapy Session: In bed, without bed alarm, call light within reach Services: Total Billed: 0 minutes (Timed: 0, Untimed: 0) 0.00 Untimed: [69261] OT-EVALUATION LOW COMPLEXITY 0.00 Untimed: [] OT Evaluation ORDER 0.00 Untimed: [] OT Treatment General ORDER Signed by: ANNIE MINAYA/Asuncion 07/28/2020 15:43:51 [facility] MEDICAL REC #: [id number] [place] [address] ADMIT DATE: 07/27/20 SERVICE DATE: 07/28/20 Occupational Therapy Assessment ATTENDING PHY: Marta Horvath DO [facility] Progress Note Normal [facility] Occupational Therapy Inpatient Missed Visit Note Location: Bedside. Attempted to visit patient for therapy, but was unable for the following reasons: Testing: off the unit at cardiac diagnostics Return Plan: Will return as soon as possible for another attempt. If there are any questions regarding this service, please contact the Acute Therapy Department at extension [phone] Signed by: ANNIE MINAYA/Asuncion 07/28/2020 13:48:54 [facility] PATIENT NAME: ANDRE BLANCA Traci Andrea MEDICAL REC #: [id number] [place] [address] ADMIT DATE: 07/27/20 SERVICE DATE: 07/28/20 Occupational Therapy Progress Note ATTENDING PHY: Marta Horvath DO [facility] Neal Narvaez [facility]-28-[facility] Patient Name: ANDRE BLANCA [address] Date of : 48 [place] [address] Unit Number: [id number] Progress Note-Hospitalist Patient Status: ADM IN Attending [...] Time Sindhu Briscoe DO Verified/Reviewed by 07/28/20 0581 [facility] Progress Note-Hospitalist [facility] PTARon 07-28-2020 PT Assessment Report [facility] PTAR Physical Therapy Inpatient Evaluation Medical Diagnosis: 1. Acute hypoxemic respiratory failure 2. Syncope 3. Hypothyroidism Therapy Diagnosis: Rank Code Description 1 R26 Abnormalities of gait and mobility 2 R53.1 Weakness Demographics: Age: 70Y Gender: Female Primary Language: [place] Preferred Language: [place] Referring Service/Team: Medicine Past Medical History: Chronic [...] Information: 70-year-old female, [facility] [place] [facility], past medical history CVA, hypothyroidism, COPD not on home oxygen, recurrent syncopal episodes in the past that she states have been worked up by her physicians [facility], [facility] done at the [facility] and here at [facility], concluding that she has "low blood [...] rate 91, respiratory rate 22, blood pressure [facility] PATIENT NAME: ANDRE BLANCA [facility] Dr. Andrea MEDICAL REC #: [id number] [place] [address] ADMIT DATE: 07/27/20 SERVICE DATE: 07/28/20 Physical Therapy Assessment Report ATTENDING DAMIAN: Marta Horvath DO 127/66, SPO2 95% room [...] canes, rollator Social History: Marital Status: W [facility] PATIENT NAME: ANDRE BLANCA [facility] Dr. Andrea MEDICAL REC #: [id number] [place] [address] ADMIT DATE: 07/27/20 SERVICE DATE: 07/28/20 Physical [...] and G-Code Modifier = CK Vital Signs: [facility] PATIENT NAME: ANDRE BLANCA [facility] Dr. Andrea MEDICAL REC #: [id number] [place] [address] ADMIT DATE: 07/27/20 SERVICE DATE: 07/28/20 Physical [...] Rolling walker. . Recommended Consults: None currently. [facility] PATIENT NAME: ANDRE BLANCA [facility] Dr[facility] Andrea MEDICAL REC #: [id number] [place] [address] ADMIT DATE: 07/27/20 SERVICE DATE: 07/28/20 Physical Therapy Assessment Report ATTENDING PHY: Marta Horvath DO Development of Plan of Care: Patient participated in plan of care development today. If there are any questions regarding this service, please contact the Acute Therapy Department at extension [phone] Location of Patient at End of Therapy Session: In chair, call light within reach Services: Total Billed: 0 minutes (Timed: 0, Untimed: 0) 0.00 Untimed: [94740] PT-EVALUATION MOD COMPLEX 0.00 Untimed: [] PT Evaluation ORDER 0.00 Untimed: [] PT Treatment- General ORDER Signed by: SINDHU MONTANEZ, PT 07/28/2020 16:23:52 [facility] PATIENT NAME: ANDRE BLANCA [facility] Dr. nAdrea MEDICAL REC #: [id number] [place] [address] ADMIT DATE: 07/27/20 SERVICE DATE: 07/28/20 Physical Therapy Assessment Report ATTENDING PHY: Marta Horvath DO Normal [facility] THY FUNC TESTSon 07-28-2020 T3 UP 33.4 % Normal 30-[address] [facility] Comment on above: Order Comment: Maciel Rubio Minimal Draw: Y Performed By: #### L 500.06378, L500.58198 #### [facility] [address] [place] [address] T4 [Mass/Vol] 4.8 ug/dL Normal 4.8-13.[address] [facility] Comment on above: Order Comment: Maciel Rubio Minimal Draw: Y Result Comment: RESU LTS MAY BE FALSELY ELEVATED AFTER THE ADMINISTRATION OF SULFASALAZINE. Performed By: #### L 500.22699, L500.83444 #### [facility] [address] [place] [address] TROPONIN Ion 07-28-2020 Troponin I.cardiac [Mass/Vol] 2.5 ng/mL Normal 0-[address] [facility] Comment on above: Order Comment: Maciel Rubio Result Comment: NOTE NEW NORMAL RANGE DUE TO REAGENT CHANGE This assay uses different antibodies than our current assay, and assays, even by the same algorithm design engineer may recognize different regions of the antibody and cannot be used interchangeably. Expect results of this assay to run higher than the previous assay. Performed By: #### L 200.93511 #### [facility] [address] [place] [address] TSHon 07-28-2020 TSH Qn 68.605 UIU/ML High 0.358-3.[address] [facility] Comment on above: Order Comment: Campu s: M What is the source? URINE Result Comment: 3rd generation ultra sensitive TSH Performed By: #### M 150.00606, M150.08869 #### [facility] [address] [place] [address] ABDOMEN OR KUBon 07-27-2020 ABDOMEN OR KUB [...] File ---- Signed By: Dimitrios Cabrera MD [email or web address] Dictated: 08/05/2020 10:41 AM Signed: 08/05/2020 10:42 AM Reported By: DIMITRIOS CABRERA M.D. Signed By: DIMITRIOS CABRERA M.D. [facility] ABDOMEN OR KUB History: Enteric tub e [...] ALONZO MD Signed By: DEUCE ALONZO [facility] ABDOMEN OR KUB Ordering Physician: Jerry Terrell 08/14/2020 5:22 PM SUPINE ABDOMEN: Clinical Statement: Enteric tube placement Comparison: 08/06/2020 FINDINGS: The tip of the OG tube extends into the mid to distal stomach. There is no abnormal gaseous distention. IMPRESSION: The tip of the OG tube is in the mid to distal stomach. Dictated by Pig Iron Loader: Almas Jimenez DO Reviewed and Signed by: Dipesh Patiño MD FACR ---- Electronic Signature on File ---- Signed By: Dipesh Patiño MD FACR [email or web address] Dictated: 08/14/2020 5:38 PM Signed: 08/14/2020 5:41 PM Reported By: IDPESH PATIÑO M.D. Signed By: DIPESH PATIÑO M.D. [facility] KUB ABDOMEN OR KUB Ordering [...] ---- Signed By: Dipesh Patiño MD FACR [email or web address] Dictated: 08/06/2020 12:56 PM Signed: 08/06/2020 12:57 PM Reported By: DIPESH PATIÑO M.D. Signed By: DIPESH PATIÑO M.D. [facility] KUB ABDOMEN OR KUB Ordering [...] File ---- Signed By: Dimitrios Cabrera MD [email or web address] Dictated: 08/04/2020 5:19 PM Signed: 08/04/2020 5:22 PM Reported By: DIMITRIOS CABRERA M.D. Signed By: DIMITRIOS CABRERA M.D. Normal [facility] BMPon 07-27-2020 Anion gap [Moles/Vol] 9 mmol/L Normal 5-16 [facility] Comment on above: Order Comment: Campu s: M Performed By: #### L 200.02838 #### [facility] [place] [address] Calcium [Mass/Vol] 9.7 mg/dL Normal 8.5-10.[address] [facility] Comment on above: Order Comment: Campu s: M Result Comment: NOTE NEW NORMAL RANGE DUE TO REAGENT CHANGE Performed By: #### L 200.98025 #### [facility] [place] [address] Chloride [Moles/Vol] 105 mmol/L Normal 98-107 [facility] Comment on above: Order Comment: Campu s: M Performed By: #### L 200.25990 #### [facility] [place] [address] CO2 [Moles/Vol] 26.0 mmol/L Normal 21-[address] [facility] Comment on above: Order Comment: Campu s: M Performed By: #### L 200.26866 #### [facility] [place] [address] Creatinine [Mass/Vol] 1.06 mg/dL High 0.510-0.950 [facility] Comment on above: Order Comment: Campu s: M Result Comment: Geraldine ents receiving either N-Acetylcysteine (NAC) or Metamizole prior to venipuncture, may have falsely depressed results. Performed By: #### L 200.85439 #### [facility] [address] [place] [address] Glucose [Mass/Vol] 136 mg/dL High 70-[address] [facility] Comment on above: Order Comment: Campu s: M Result Comment: 70-1 00- Normal Fasting; 100-125 Impaired Fasting; greater than 126 on more than one result- Diabetes. ADA guidelines. Results may be falsely elevated after the administration of Sulfapyridine. Results may be falsely depressed after the administration of Sulfasalazine. Performed By: #### L 200.47078 #### [facility] [address] [place] [address] Potassium [Moles/Vol] 3.9 mmol/L Normal 3.5-5.1 [facility] Comment on above: Order Comment: Campu s: M Result Comment: Slig ht Hemolysis, Result may be affected. Performed By: #### L 200.04780 #### [facility] [address] [place] [address] Sodium [Moles/Vol] 140 mmol/L Normal 136-[address] [facility] Comment on above: Order Comment: Campu s: M Performed By: #### L 200.92693 #### [facility] [address] [place] [address] Urea nitrogen [Mass/Vol] 11 mg/dL Normal 7-[address] [facility] Comment on above: Order Comment: Campu s: M Performed By: #### L 200.29624 #### [facility] [place] [address] Urea nitrogen/Creatinine [Mass ratio] 10 mg/mg Low 15-[address] [facility] Comment on above: Order Comment: Campu s: M Performed By: #### L 200.84704 #### [facility] [address] [place] [address] CBC W/DIFFon 07-27-2020 BASO ABS 0.10 K/CU MM Normal 0-0.[address] [facility] Comment on above: Order Comment: Campu s: M Performed By: #### L 200.03143 #### [facility] [address] [place] [address] Basophils/100 WBC (Bld) 0.8 % Normal 0-2 M [facility] Comment on above: Order Comment: Campu s: M Performed By: #### L 200.83856 #### [facility] [address] [place] [address] EOS ABS 0.20 K/CU MM Normal 0-0.[address] [facility] Comment on above: Order Comment: Campu s: M Performed By: #### L 200.96046 #### [facility] [address] [place] [address] Eosinophils/100 WBC (Bld) 2.3 % Normal 0-[address] [facility] Comment on above: Order Comment: Campu s: M Performed By: #### L 200.33139 #### [facility] [address] [place] [address] Erythrocyte distribution width (RBC) [Ratio] 14.2 % Normal 11-14.[address] [facility] Comment on above: Order Comment: Campu s: M Performed By: #### L 200.38192 #### [facility] [address] [place] [address] Hematocrit (Bld) [Volume fraction] 42.1 % Normal 35.0-47.[address] [facility] Comment on above: Order Comment: Campu s: M Performed By: #### L [id number] #### [facility] [address] [place] [address] Hemoglobin (Bld) [Mass/Vol] 13.9 g/dL Normal 11.5-15.[address] [facility] Comment on above: Order Comment: Campu s: M Performed By: #### L [id number] #### [facility] [address] [place] [address] IMMATR GRAN ABS 0.00 K/CU MM Normal Less than [address] [facility] Comment on above: Order Comment: Campu s: M Performed By: #### L [id number] #### [facility] [address] [place] [address] IMMATURE GRAN % 0.3 % Normal Less than [address] [facility] Comment on above: Order Comment: Campu s: M Performed By: #### L [id number] #### [facility] [address] [place] [address] Lymphocytes (Bld) [#/Vol] 1.40 K/CU MM Normal 0.9-4.[address] [facility] Comment on above: Order Comment: Campu s: M Performed By: #### L [id number] #### [facility] [address] [place] [address] Lymphocytes/100 WBC (Bld) 14.1 % Low 20-[address] [facility] Comment on above: Order Comment: Campu s: M Performed By: #### L [id number] #### [facility] [address] [place] [address] MCHC (RBC) [Mass/Vol] 33.0 g/dL Normal 32.0-36.0 [facility] Comment on above: Order Comment: Campu s: M Performed By: #### L [id number] #### [facility] [address] [place] [address] MCV (RBC) [Entitic vol] 89.0 fL Normal 80.0-99.0 [facility] Comment on above: Order Comment: Campu s: M Performed By: #### L [id number] #### [facility] [address] [place] [address] MONO ABS 0.60 K/CU MM Normal 0.1-1.[address] [facility] Comment on above: Order Comment: Campu s: M Performed By: #### L [id number] #### [facility] [place] [address] Monocytes/100 WBC (Bld) 6.2 % Normal 2-10 [facility] Comment on above: Order Comment: Campu s: M Performed By: #### L [id number] #### [facility] [address] [place] [address] NEUTROPHIL ABS 7.60 K/CU MM Normal 2.0-8.[address] [facility] Comment on above: Order Comment: Campu s: M Performed By: #### L [id number] #### [facility] [address] [place] [address] Neutrophils/100 WBC (Bld) 76.3 % High 45-[address] [facility] Comment on above: Order Comment: Campu s: M Performed By: #### L [id number] #### [facility] [address] [place] [address] Nucleated RBC/100 WBC (Bld) [Ratio] 0.0 % Normal Less than [address] [facility] Comment on above: Order Comment: Campu s: M Performed By: #### L [id number] #### [facility] [address] [place] [address] Platelet mean volume (Bld) [Entitic vol] 10.2 fL Normal 9.4-12.[address] [facility] Comment on above: Order Comment: Campu s: M Performed By: #### L [id number] #### [facility] [address] [place] [address] Platelets (Bld) [#/Vol] 265 K/CU MM Normal 150-[address] [facility] Comment on above: Order Comment: Campu s: M Performed By: #### L [id number] #### [facility] [address] [place] [address] RBC (Bld) [#/Vol] 4.73 M/CU MM Normal 3.90-5.[address] [facility] Comment on above: Order Comment: Campu s: M Performed By: #### L [id number] #### [facility] [address] [place] [address] WBC (Bld) [#/Vol] 10.0 K/CUMM Normal 4.5-11.[address] [facility] Comment on above: Order Comment: Campu s: M Performed By: #### L 200.93484 #### [facility] [address] [place] [address] CDLECHOon 07-27-2020 [facility] [id number] IN ECHOCARD ECHOCARDIOGRAM [address] [address] Noninvasive Cardiac Diagnostics Adult Echocardiogram Report Name: ANDRE BLANCA Study Date: 07/28/2020 01:53 PM BP: 123/74 mmHg Patient Location: [id number]: : 1950 Gender: Female Height: 67 in Age: 70 yrs Ethnicity: [place] Weight: 235 lb Accession No. [id number] No. [id number] Reason For Study: SYNCOPE BSA: 2.2 m2 [...] left atrial size is normal. Right Atrium: [facility] PATIENT NAME: ANDRE BLANCA [facility] Dr. Andrea MEDICAL REC #: [id number] [place] [address] ADMIT DATE: 07/27/20 DISCHARGE DATE: ATTENDING PHY: [...] LA/Ao: 1.2 EF(MOD-sp4):SI(MOD-sp4 ): LA ESV Index [facility] PATIENT NAME: ANDRE BLANCA [facility] Dr. Andrea MEDICAL REC #: [id number] [place] [address] ADMIT DATE: 07/27/20 DISCHARGE DATE: ATTENDING PHY: [...] l/min CI(LVOT): 2.1 l/min/m2 SI(LVOT): 28.3 ml/m2 [facility] PATIENT NAME: ANDRE BLANCA [facility] Dr. Andrea MEDICAL REC #: [id number] [place] [address] ADMIT DATE: 07/27/20 DISCHARGE DATE: ATTENDING PHY: [...] WALTERS Performed By: 18 CC: Marta Horvath [facility] PATIENT NAME: ANDRE BLANCA [facility] Dr. Andrea MEDICAL REC #: [id number] [place] [address] ADMIT DATE: 07/27/20 DISCHARGE DATE: ATTENDING PHY: Marta Horvath DO ECHOCARDIOGRAM REPORT Normal [facility] ECHOCARDIOGRAM REPORT Normal [facility] CT CERVICAL SP. W/O CONon CT CERVICAL [...] disk disease and facet arthropathy Dictated by [employer]: Jennifer Cobb DO Reviewed and Signed by: Kwesi Houston MD ---- Electronic Signature on File ---- Signed By: Kwesi Houston MD [email or web address] Dictated: 07/27/2020 3:00 PM Signed: 07/27/2020 3:22 PM Reported By: KWESI HOUSTON M.D. Signed By: KWESI HOUSTON M.D. [facility] CT HEAD/BRAIN W/O CONon 07-14 CT [...] ---- Signed By: Dipesh Patiño MD FACR [email or web address] Dictated: 08/10/2020 7:43 AM Signed: 08/10/2020 7:46 AM Reported By: DIPESH PATIÑO M.D. Signed By: DIPESH PATIÑO M.D. [facility] CT HEAD/BRAIN W/O CON CT HEAD/BRAIN [...] age-related and chronic ischemic changes. Dictated by [employer]: Jennifer Cobb DO Reviewed and Signed by: Kwesi Houston MD ---- Electronic Signature on File ---- Signed By: Kwesi Houston MD [email or web address] Dictated: 07/27/2020 2:55 PM Signed: 07/27/2020 3:18 PM Reported By: KWESI HOUSTON M.D. Signed By: KWESI HOUSTON M.D. [facility] GFR ESTon 07-27-2020 IF AMER Greater than 60 [facility] Comment on above: Order Comment: Campu s: M Performed By: #### L [id number] #### [facility] [address] [place] [address] IF non-AFR AMER 51 [facility] Comment on above: Order Comment: Campu s: M Performed By: #### L [id number] #### [facility] [address] [place] [address] [email or web address] 07-27-2020 Admission-H&P [facility] HP.IMS.ADM [facility] Patient Name: ANDRE BLANCA [address] [facility] [address] Date of : 48 [place], [place] [address] Unit Number: [id number] Admission-HandP Patient Status: ADM IN Attending Doctor: Marta Horvath DO Service Date: 07/27/20 182 History of Present Illness Chief Complaint/Present Illness: Syncope History of Present Illness 70-year-old female, primary care through the [facility], past medical history CVA, hypothyroidism, COPD not on home oxygen, recurrent syncopal episodes in the past that she states have been worked up by her physicians at the [facility], testing done at the [facility] and here at [facility], concluding that she has "low blood [...] by GASTON URIBE on 04/16/171949 Last Action: Held on [...] as Reported by GASTON URIBE on 10/24/18 132 Last Action: Continued on 07/28/2011 by MARTA [...] by GASTON URIBE on 10/24/181314 Last Action: Continued on 07/28/2011 by MARTA [...] as Reported by COSME GARCIA on 02/22/19 1612 Last Action: Continued on 07/28/2011 by MARTA [...] Action: Discontinued on 07/27/202307 by CHRISTIANO FRAUSTO calcium CARB/VIT D3 (Caltrate [address] [...] "low blood pressure". Her last echocardiogram in [facility] for review is from February 2019 demonstrating [...] errors may exist. eSign Date and Time Kian,Marta Ramiro CAAL Verified/Reviewed by 07/28/20 0044 [facility] PORTABLE CHESTon 07-27-2020 PORTABLE CHEST EXAMINATION: CHEST [...] GARCIA MD Signed By: KWESI GARCIA MD [facility] PORTABLE CHEST PORTABLE CHEST Ordering Physician: [...] File ---- Signed By: Aaron Burkett MD [email or web address] Dictated: 08/11/2020 7:29 AM Signed: 08/11/2020 7:30 AM Reported By: AARON BURKETT M.D. Signed By: AARON BURKETT M.D. [facility] PORTABLE CHEST PORTABLE CHEST Ordering Physician: [...] File ---- Signed By: Dimitrios Cabrera MD [email or web address] Dictated: 08/08/2020 7:44 AM Signed: 08/08/2020 7:46 AM Reported By: DIMITRIOS CABRERA M.D. Signed By: DIMITRIOS CABRERA M.D. [facility] PORTABLE CHEST PORTABLE CHEST Ordering Physician: [...] File ---- Signed By: Kwesi Houston MD [email or web address] Dictated: 08/09/2020 7:14 AM Signed: 08/09/2020 7:14 AM Reported By: KWESI HOUSTON M.D. Signed By: KWESI HOUSTON M.D. [facility] PORTABLE CHEST PORTABLE CHEST Ordering Physician: [...] ---- Signed By: Dipesh Patiño MD FACR [email or web address] Dictated: 08/14/2020 7:35 AM Signed: 08/14/2020 7:36 AM Reported By: DIPESH PATIÑO M.D. Signed By: DIPESH PATIÑO M.D. [facility] PORTABLE CHEST PORTABLE CHEST Ordering Physician: [...] File ---- Signed By: Aaron Burkett MD [email or web address] Dictated: 08/10/2020 7:07 AM Signed: 08/10/2020 7:08 AM Reported By: AARON BURKETT M.D. Signed By: AARON BURKETT M.D. [facility] PORTABLE CHEST PORTABLE CHEST Ordering Physician: [...] possible atelectasis versus early pneumonia. Dictated by Pig Iron Loader: Jennifer Cobb DO Reviewed and Signed by: Laz Funk MD ---- Electronic Signature on File ---- Signed By: Laz Funk MD [email or web address] Dictated: 07/27/2020 4:58 PM Signed: 07/27/2020 5:07 PM Reported By: LAZ FUNK M.D. Signed By: LAZ FUNK M.D. [facility] SARS-COV-2 PCRon 07-27-2020 SARS-COV-2 PCR NOT DETECTED Normal NOT DETECTD [facility] Comment on above: Order Comment: Maciel joe: Ramiro Result Comment: RESU LTS CALLED TO [facility] AT 201507/27/20 BY LAKESHA RENEE Negative results [...] performed by PCR. Performed By: #### L [id number] ####[facility] [id number] [place], [place] [address]Xz# [phone] SHOULDER MIN 2 VWS RTon 07-14 SHOULDER [...] ---- Signed By: Kwesi Houston MD [email or web address] Dictated: 07/30/2020 1:56 PM Signed: 07/30/2020 1:58 PM Reported By: KWESI HOUSTON M.D. Signed By: KWESI HUOSTON M.D. [facility] Vital Signs Date Time Vital Sign Value Performing Clinician Faci lity 02-25-2025 15:07-0400 Body height 168.9 cm Opal Espinoza MD Work Phone: [facility] [employer] 02-25-2025 15:07-0400 Body mass index (BMI) [Ratio] 28.94 kg/m2 Opal Espinoza MD Work Phone: [facility] [employer] 02-25-2025 15:07-0400 Body weight 82.56 kg Opal Espinoza MD Work Phone: [facility] [employer] 02-25-2025 15:07-0400 Diastolic blood pressure 79 mm[Hg] Opal Espinoza MD Work Phone: [facility] [employer] 02-25-2025 15:07-0400 Heart rate 70 /min Opal Espinoza MD Work Phone: [facility] [employer] 02-25-2025 15:07-0400 Systolic blood pressure 118 mm[Hg] Opal Espinoza MD Work Phone: [facility] [employer] 09-27-2024 13:15-0500 Heart rate 84 /min Muna Edmonds MD Work Phone: [email or web address] 09-27-2024 13:15-0500 Respiratory rate 18 /min Muna Edmonds MD Work Phone: [email or web address] 09-27-2024 13:15-0500 SaO2% (BldA) [Mass fraction] 95 % Muna Edmonds MD Work Phone: [facility] [employer] 09-27-2024 09:22-0500 Diastolic blood pressure 83 mm[Hg] Muna Edmonds MD Work Phone: [facility] [employer] 09-27-2024 09:22-0500 Systolic blood pressure 126 mm[Hg] Muna Edmonds MD Work Phone: [facility] [employer] 09-27-2024 08:36-0500 Body temperature 97.39 [degF] Muna Edmonds MD Work Phone: [facility] [employer] 09-26-2024 10:48-0500 Body height 168.9 cm Muna Edmonds MD Work Phone: [facility] [employer] 09-25-2024 21:30-0500 Body mass index (BMI) [Ratio] 28.95 kg/m2 Muna Edmonds MD Work Phone: [email or web address] 09-25-2024 21:30-0500 Body weight 82.6 kg Muna Edmonds MD Work Phone: [email or web address] 09-13-2023 08:32-0500 Body height 170.2 cm Almas Laureano MD Work Phone: [email or web address] 09-13-2023 08:32-0500 Body mass index (BMI) [Ratio] 28.19 kg/m2 Almas Laureano MD Work Phone: [email or web address] 09-13-2023 08:32-0500 Body weight 81.65 kg Almas Laureano MD Work Phone: [employer] 05-31-2023 13:21-0400 Body height 170.2 cm Almas Laureano MD Work Phone: [email or web address] 05-31-2023 13:21-0400 Body mass index (BMI) [Ratio] 28.19 kg/m2 Almas Laureano MD Work Phone: [email or web address] 05-31-2023 13:21-0400 Body weight 81.65 kg Almas Laureano MD Work Phone: [facility] [employer] 02-08-2023 13:12-0400 Body height 170.2 cm Abiola [employer] PA-C Work Phone: [facility] [employer] 02-08-2023 13:12-0400 Body mass index (BMI) [Ratio] 28.19 kg/m2 [employer] PA-C Work Phone: [email or web address] 02-08-2023 13:12-0400 Body weight 81.65 kg [employer] PA-C Work Phone: [email or web address] 01-13-2023 11:34-0400 Body temperature 98.4 [degF] Almas Laureano MD Work Phone: [facility] [employer] 01-13-2023 11:34-0400 Diastolic blood pressure 47 mm[Hg] Almas Laureano MD Work Phone: [facility] [employer] 01-13-2023 11:34-0400 Heart rate 97 /min Almas Laureano MD Work Phone: [email or web address] 01-13-2023 11:34-0400 Respiratory rate 18 /min Almas Laureano MD Work Phone: [email or web address] 01-13-2023 11:34-0400 SaO2% (BldA) [Mass fraction] 92 % Almas Laureano MD Work Phone: [facility] [employer] 01-13-2023 11:34-0400 Systolic blood pressure 96 mm[Hg] Almas Laureano MD Work Phone: [facility] [employer] 06-05-2022 04:29-0400 Body temperature 98.01 [degF] Kwesi [employer] Work Phone: [employer] 06-05-2022 04:29-0400 Diastolic blood pressure 82 mm[Hg] Kwesi Decker [employer] Work Phone: [employer] 06-05-2022 04:29-0400 Heart rate 84 /min Kwesi [employer] Work Phone: [employer] 06-05-2022 04:29-0400 Respiratory rate 16 /min Kwesi [employer] Work Phone: [employer] 06-05-2022 04:29-0400 SaO2% (BldA) [Mass fraction] 92 % Kwesi [employer] Work Phone: [employer] 06-05-2022 04:29-0400 Systolic blood pressure 114 mm[Hg] Kwesi [employer] Work Phone: [employer] 05-30-2022 10:22-0400 Body height 170.2 cm Kwesi [employer] Work Phone: [employer] 05-30-2022 10:22-0400 Body mass index (BMI) [Ratio] 30.54 kg/m2 Kwesi [employer] Phone: [employer] 05-30-2022 10:22-0400 Body weight 88.45 kg Kwesi [employer] Phone: [employer] 01-19-2022 15:10-0400 Diastolic blood pressure 69 mm[Hg] Kim Muhammad MD Work Phone: [employer] 01-19-2022 15:10-0400 Heart rate 110 /min Kim Muhammad MD Work Phone: [employer] 01-19-2022 15:10-0400 SaO2% (BldA) [Mass fraction] 95 % Kim Muhammad MD Work Phone: [employer] 01-19-2022 15:10-0400 Systolic blood pressure 129 mm[Hg] Kim Muhammad MD Work Phone: [employer] 01-19-2022 15:06-0400 Body temperature 98.4 [degF] Kim Muhammad MD Work Phone: [facility] 01-19-2022 15:06-0400 Respiratory rate 16 /min Kim Muhammad MD Work Phone: [facility] 01-18-2022 06:53-0400 Body height 170.2 cm Kim Muhammad MD Work Phone: [facility] 01-18-2022 06:53-0400 Body mass index (BMI) [Ratio] 33.67 kg/m2 Kim Muhammad MD Work Phone: [facility] 01-18-2022 06:53-0400 Body weight 97.52 kg Kim Muhammad MD Work Phone: [facility] 11-17-2020 11:01-0400 Pulse (Heart Rate) 54 /min Jayesh BARAJAS Work Phone: 11-17-2020 11:01-0400 Pulse Oximetry 96 % Jayesh BARAJAS Work Phone: 11-17-2020 11:01-0400 Respiratory Rate 18 /min Jayesh BARAJAS Work Phone: Encounters Encounter Date Encounter Type Care Provider Facility Start: 06-25-2025 ambulatory Kianna SALVADOR Faci lity:[facility] Start: 05-19-2025 ambulatory Kianna SALVADOR Faci lity:[facility] Start: 05-14-2025 ambulatory Kianna SALVADOR Faci lity:[facility] Start: 05-09-2025 End: 05-09-2025 ambulatory Kianna SALVADOR Facility:[facility] Start: 04-24-2025 ambulatory Amaury SALVADOR Facility:[facility] Start: 02-25-2025 End: 02-[facility] Start: 02-25-2025 End: 02-25-2025 Office outpatient new 30 minutes Opal Espinoza MD Work Phone: [facility] Comment on above: Spondylolysis, lumbo sacral (Primary Dx); Sacroiliac dysfunction; Lumbar pain Start: 02-25-2025 End: 02-25-2025 Subsequent hospital visit by physician Opal Espinoza MD Work Phone: [facility] Comment on above: Lumbar pain Start: 09-30-2024 End: 09-30-2024 ambulatory Kianna Monikaalexa SALVADOR [facility] Work Phone: Start: 09-30-2024 End: 09-30-2024 Departed Referred Kianna Ramon [facility] [employer] Start: 09-30-2024 End: 09-30-2024 ambulatory Kianna Monikaalexa MADELEINE Facility:[facility] Start: 09-23-2024 End: 09-27-2024 ambulatory [facility] Start: 09-23-2024 End: 09-27-2024 Emergency department patient visit Muna Edmonds MD Work Phone: [facility] Observation Unit 5E Comment on above: Pneumonia due to org anism (Primary Dx); Fall, initial encounter; Neuropathy Start: 07-29-2024 ambulatory Kianna Monikaalexa MADELEINE Faci lity:[facility] Start: 07-29-2024 Registered Referred Kianna Monikavictor m - [place] [employer] Start: 07-08-2024 End: 07-08-2024 Departed Referred Kianna Izquierdo [facility] [employer] [employer] Start: 07-08-2024 End: 07-08-2024 ambulatory Kianna Monikaalexa SALVADOR Facility:[facility] Start: 06-18-2024 End: 06-18-2024 Subsequent hospital visit by physician Almas Laureano MD Work Phone: [facility] Comment on above: Right hip pain; Avascular necrosis of bone of hip, right (HCC) Start: 06-18-2024 End: 06-18-2024 ambulatory [facility] Start: 11-24-2023 End: 11-24-2023 Subsequent hospital visit by physician Almas Laureano MD Work Phone: [facility] Comment on above: Canceled (Patient: S chedule Conflict) Start: 10-24-2023 End: 10-24-2023 ambulatory [facility] Work Phone: Start: 10-24-2023 End: 10-24-2023 Departed Referred [facility] Start: 09-13-2023 End: 09-13-2023 Office outpatient visit 15 minutes Almas Laureano MD Work Phone: [facility] Medical [facility] Comment on above: Right hip pain Start: 09-13-2023 End: 09-13-2023 Subsequent hospital visit by physician Jaimee Ramírez PA-C Work Phone: [facility] Comment on above: Right hip pain Start: 09-11-2023 Orders Only Jaimee Louis Work Phone: [facility] Comment on above: Right hip pain (Prim adi Dx) Start: 08-10-2023 End: 08-10-2023 ambulatory [facility] Work Phone: Start: 08-10-2023 End: 08-10-2023 Departed Referred [facility] Start: 08-10-[address] [facility] Start: 07-31-2023 End: 07-31-2023 ambulatory [facility] Work Phone: Start: 07-31-2023 End: 07-31-2023 Departed Referred [facility] Start: 06-26-2023 End: 06-26-2023 ambulatory [facility] Work Phone: Start: 06-26-2023 End: 06-26-2023 Departed Referred [facility] Start: 06-26-[address] [facility] Start: 06-20-2023 End: 06-20-2023 ambulatory [facility] Work Phone: Start: 06-20-2023 End: 06-20-2023 Departed Referred [facility] [employer] Start: 06-02-2023 Orders Only Abiola Connolly PA-C Work Phone: [facility] Comment on above: Status post total ri ght knee replacement (Primary Dx); Primary osteoarthritis of right knee Start: 06-01-2023 End: 06-01-2023 ambulatory [facility] Work Phone: Start: 06-01-2023 End: 06-01-2023 Departed Referred [facility] [employer] [facility] Start: 05-31-2023 End: 05-31-2023 Office outpatient visit 15 minutes Almas Laureano MD Work Phone: [facility] Comment on above: Status post total ri ght knee replacement; Primary osteoarthritis of right knee Start: 05-31-2023 End: 05-31-2023 Subsequent hospital visit by physician Abiola Connolly PA-C Work Phone: [facility] Comment on above: S/P total knee arthr oplasty, right Start: 04-25-2023 End: 04-25-2023 [facility] Work Phone: Start: 04-25-2023 End: 04-25-2023 Departed Referred [facility] [employer] [facility] Start: 02-08-2023 End: 02-08-2023 Postop follow up visit related to original px Abiola Connolly PA-C Work Phone: [facility] Comment on above: Primary osteoarthrit is of right knee; S/P total knee arthroplasty, right Start: 02-08-2023 End: 02-08-2023 Subsequent hospital visit by physician Abiola Connolly PA-C Work Phone: [facility] X-[facility] Comment on above: S/P total knee arthr oplasty, right Start: 02-06-2023 End: 02-06-2023 ambulatory [facility] Work Phone: Start: 02-06-2023 End: 02-06-2023 Departed Referred [facility] [employer] Start: 02-01-2023 Orders Only Abiola Connolly PA-C Work Phone: [facility] Comment on above: S/P total knee arthr oplasty, right (Primary Dx) Start: 01-31-2023 Registered Referred [facility] Work Phone: Start: 01-16-2023 Telephone encounter Almas Laureano MD Work Phone: [facility] Comment on above: Advice Only Start: 01-12-2023 End: 01-12-2023 Anesthesia consultation Michel Zambrano MD Work Phone: [facility] Start: 01-12-2023 End: 01-13-2023 Subsequent hospital visit by physician Almas Laureano MD Work Phone: [address] Comment on above: Primary osteoarthrit is of right knee (Primary Dx) Start: 01-04-2023 End: 01-04-2023 ambulatory [facility] Work Phone: Start: 01-04-2023 End: 01-04-2023 Departed Referred [facility] [employer] Start: 01-04-2023 Registered Referred [facility] [employer] Start: 12-26-2022 End: 12-26-2022 ambulatory [facility] Work Phone: Start: 12-26-2022 End: 12-26-2022 Departed Referred [facility] [employer] Start: 12-22-2022 ambulatory Abiola Connolly PA-C Work Phone: [facility] Start: 12-19-2022 End: 12-19-2022 Departed Referred [facility] [employer] Start: 12-19-2022 Registered Referred [facility] [employer] Start: 12-14-2022 End: 12-14-2022 Subsequent hospital visit by physician Enriqueta Xr Exam Room 1 B [facility] Comment on above: Right knee pain, uns pecified chronicity Start: 12-12-2022 Orders Only Abiola Connolly PA-C Work Phone: [facility] Comment on above: Right knee pain, uns pecified chronicity (Primary Dx) Start: 12-01-2022 End: 12-01-2022 ambulatory [facility] Work Phone: Start: 12-01-2022 End: 12-01-2022 Departed Referred [facility] [employer] Start: 12-01-2022 Registered Referred [facility] [employer] Start: 11-24-2022 End: 11-24-2022 Departed Referred [facility] [employer] Start: 11-24-2022 Registered Referred [facility] [employer] Start: 11-17-2022 End: 11-17-2022 ambulatory [facility] Work Phone: Start: 11-17-2022 End: 11-17-2022 [facility]ed [facility] [employer] Start: 11-17-2022 [facility] [employer] Start: 10-19-2022 End: 10-19-2022 ambulatory [facility] Work Phone: Start: 10-19-2022 End: 10-19-2022 [facility]ed [facility] [employer] Start: 10-19-2022 [facility] [employer] Start: 10-17-2022 End: 10-17-2022 ambulatory [facility] Work Phone: Start: 10-17-2022 End: 10-17-2022 [facility]ed [facility] [employer] Start: 10-17-2022 Registered Referred [facility] [employer] Start: 09-26-2022 End: 09-26-2022 ambulatory [facility] Work Phone: Start: 09-26-2022 End: 09-26-2022 [facility]ed [facility] [employer] Start: 09-19-2022 End: 09-19-2022 [facility] [employer] Start: 08-18-2022 End: 08-18-2022 ambulatory [facility] Work Phone: Start: 08-18-2022 End: 08-18-2022 [facility]ed [facility] [employer] Start: 08-18-2022 [facility] [employer] Start: 08-16-2022 End: 08-16-2022 ambulatory [facility] Work Phone: Start: 08-16-2022 End: 08-16-2022 Departed [facility] [employer] Start: 08-16-2022 [facility]istered [facility] [employer] Start: 08-03-2022 End: 08-03-2022 ambulatory [facility] Work Phone: Start: 08-03-2022 End: 08-03-2022 Departed [facility] [employer] Start: 07-12-2022 Telephone encounter Neto duque MD Work Phone: [facility] [employer] Comment on above: OTHER Start: 07-04-2022 [facility] [employer] Start: 06-27-2022 [facility]istered [facility] [employer] Start: 06-13-2022 End: 06-13-2022 ambulatory [facility] Work Phone: Start: 06-13-2022 End: 06-13-2022 Departed [facility] [employer] Start: 06-13-2022 [facility]istered [facility] [employer] Start: 06-09-2022 End: 06-09-2022 ambulatory [facility] Work Phone: Start: 06-09-2022 End: 06-09-2022 Departed Referred [facility] [employer] Start: 05-30-2022 End: 06-05-2022 Evaluation and management of inpatient Kwesi Decker DO Work Phone: [facility] Comment on above: Closed displaced fra cture of left femoral neck (HCC) (Primary Dx); Syncope and collapse; Acute pain of left shoulder; Left hip pain; Acute traumatic pain; Fall at home, initial encounter Start: 05-18-2022 ambulatory [facility] [email or web address] [facility] Start: 05-18-2022 End: 05-18-2022 Subsequent hospital visit by physician Abiola Connolly PA-C Work Phone: [facility] [employer] [facility] Comment on above: Arthritis of knee, r ight Start: 05-05-2022 ambulatory [facility] [employer] [facility] Start: 05-05-2022 End: 05-05-2022 Subsequent hospital visit by physician Osmin Segovia PA-C Work Phone: [facility] [employer] [facility] Comment on above: Left shoulder pain, unspecified chronicity Start: 04-28-2022 ambulatory [facility] [employer] [facility] Start: 04-28-2022 End: 04-28-2022 Subsequent hospital visit by physician Osmin Segovia PA-C Work Phone: [facility] [employer] [facility] Start: 04-25-2022 End: 04-25-2022 ambulatory [facility] Work Phone: Start: 04-25-2022 End: 04-25-2022 Departed Referred [facility] [employer] Start: 03-25-2022 End: 03-25-2022 ambulatory [facility] Work Phone: Start: 03-25-2022 End: 03-25-2022 Departed Referred [facility] [employer] Start: 03-25-2022 Registered Referred [facility] [employer] Start: 03-14-2022 End: 03-14-2022 ambulatory [facility] Work Phone: Start: 03-14-2022 End: 03-14-2022 Departed Referred [facility] [employer] [facility] Start: 03-03-2022 ambulatory [facility] Start: 03-03-2022 End: 03-03-2022 Subsequent hospital visit by physician Nurys GONZALEZ Work Phone: [facility] Comment on above: Glenohumeral arthrit is, left; S/P reverse total shoulder arthroplasty, left Start: 01-18-2022 End: 01-19-2022 ambulatory [facility] Start: 01-18-2022 End: 01-19-2022 Subsequent hospital visit by physician Kim Muhammad MD Work Phone: [address] Comment on above: 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) Start: 01-17-2022 Registered Referred [facility] [employer] Start: 01-13-2022 ambulatory [facility] Start: 01-11-2022 ambulatory Kim [employer] [facility] Start: 01-06-2022 End: 01-07-2022 Evaluation and management of inpatient [facility] Start: 12-27-2021 [facility] Start: 12-20-2021 End: 12-20-2021 Departed Referred [facility] [employer] Start: 12-20-2021 Registered Referred [facility] [employer] Start: 12-13-2021 End: 12-13-2021 Departed Referred [facility] [employer] Start: 12-13-2021 Registered Referred [facility] [employer] Start: 11-29-2021 End: 11-29-2021 Departed Referred [facility] [employer] Start: 11-05-2021 End: 11-05-2021 Departed Referred [facility] [employer] [facility] Start: 11-05-2021 Registered Referred Xavier pryor [facility] [employer] [facility] Start: 09-24-2021 Registered Referred Xavier pryor [facility] [employer] [facility] Start: 12-25-2020 End: 12-25-2020 Subsequent hospital visit by physician Jayesh Loera MD Work Phone: [facility] Comment on above: Arrived Start: 12-07-2020 End: 12-07-2020 Subsequent hospital visit by physician Opal Espinoza MD Work Phone: [facility] Comment on above: Chronic left shoulde r pain Start: 11-17-2020 End: 11-17-2020 Subsequent hospital visit by physician Jayesh Loera Work Phone: [facility] [employer] Comment on above: Arrived Procedures Date Procedure Procedure Detail Performing Clinician Start: 09-26-2024 Basic metabolic pane l calcium total [employer] DO Work Phone: Start: 09-25-2024 Iadna-dna/rna gi pth gn multiplex probe tq 08-07 [employer] DO Work Phone: Start: 09-25-2024 Inf agent det nuclei c acid clostridium amp probe Dennis [email or web address] DO Work Phone: Start: 09-25-2024 Thyrotropin [Units/v olume] in Serum or Plasma Muna Edmonds MD Work Phone: Start: 09-25-2024 Basic metabolic pane l calcium total [employer] DO Work Phone: Start: 09-24-2024 Smr prim src gram/gi emsa stain bct fungi/cell Dennis [email or web address] DO Work Phone: Start: 09-24-2024 Antibody screen RONIT LONGORIA Comment on above: Order Comment: Don't collect this lab until patient identity is updated. Performed By: #### L [id number] ####Cardiovascular Radiologic Technologist: STAR DE LA ROSA ([phone])[facility] ([facility])[address] [place] [address] Start: 09-24-2024 Comprehensive metabo lic panel Lashon Sullivan MD Work Phone: Start: 09-24-2024 End: 09-24-2024 Drug assay carbamazepine total Shweta Carson [employer] CLEANER REPAIRER - MAIL HANDLER Work Phone: Start: 09-23-2024 Iaadiadoo not otherw [...] on above: Performed By: #### L [id number] ####Cardiovascular Radiologic Technologist: STAR DE LA ROSA ([id number])[facility] ([facility])[address] [place] [address] Start: 09-23-2024 ABO and Rh group [Ty [...] panel - S erika or Plasma Jaimee GONZALEZ-C Work Phone: Start: 07-23-2023 Thyrotropin [Units/v olume] in Serum or Plasma Jaimee GONZALEZ-C Work Phone: Start: 06-26-2023 Urine culture Start: 06-20-2023 Urine culture Start: 05-31-2023 Radiologic examinati on knee 1/2 views Abiola Connolly PA-C Work Phone: Start: 02-08-2023 Radiologic examinati on knee 1/2 views Abiola Connolly PA-C Work Phone: Start: 01-13-2023 Basic metabolic pane l calcium total Abiola Connolly PA-C Work Phone: Start: 01-12-2023 Peripheral block anesthesia Delia Uribe [employer] CLEANER REPAIRER - ASSISTANT MANAGER PT Work Phone: Start: 01-12-2023 Spinal anesthesia Binh -Yeison Howe [employer] CLEANER REPAIRER - ASSISTANT MANAGER PT Start: 01-12-2023 End: 01-12-2023 Arthrp kne condyle&platu medial&lat compartments Almas Laureano MD Work Phone: Start: 01-12-2023 Ecg routine ecg w/le ast 12 lds trcg only w/o i&r Abiola GONZALEZ-C Work Phone: Start: 06-05-2022 COVID-19 Radha abtista [employer] CLEANER REPAIRER - ELECTRICIAN TECHNICIAN Work Phone: Start: 06-03-2022 Basic metabolic pane l calcium total Jeannine Card PA-C Work Phone: Start: 06-02-2022 Dup-scan xtr [...] TO MG FOR LOW K Radha Moon [employer] CLEANER REPAIRER - ELECTRICIAN TECHNICIAN Work Phone: Start: 05-31-2022 Blood count complete auto&auto difrntl wbc Radha Red [employer] CLEANER REPAIRER - ELECTRICIAN TECHNICIAN Work Phone: Start: 05-30-2022 Radiologic examinati on tibia & fibula 2 views Erlinda Ruth MD Work Phone: Start: 05-30-2022 Ct head/brain w/o co ntrast material Radha Red [employer] CLEANER REPAIRER - ELECTRICIAN TECHNICIAN Work Phone: Start: 05-30-2022 Radiologic exam ches t single view Lalit Pichardo DO Work Phone: Start: 05-30-2022 Antibody screen Kwesi Decker DO Work Phone: Start: 05-30-2022 End: 05-30-2022 Radex elbow complete minimum 3 views Margaret Cuevas VACUUM CLEANER REPAIRER - MAIL HANDLER Work Phone: Start: 05-30-2022 Ecg routine ecg [...] et rgnt auto w/o microscopy Nola Morrison VACUUM CLEANER REPAIRER - MAIL HANDLER Work Phone: Start: 01-19-2022 Comprehensive metabo lic [...] DTaP/Tdap/Td Vaccines (2 - Td or Tdap) [facility] Start: 07-25-2028 Lipid panel Lipid Panel [facility] Start: 09-25-2025 Thyroid stimulating hormone measurement TSH Level [facility] Start: 04-14-2025 Influenza vaccination Influenza Vacc ine (#1) [facility] Start: 03-12-2025 End: 03-12-2025 Patient encounter procedure 03/12/2025 3:15 PM EDT Office Visit [facility] [address] [place] [address] [place] [address] Almas Laureano MD [address] [facility] [address] [place] [address] [facility] Start: 02-24-2025 End: 02-24-2026 XR Lumbar spine Views W flexion and W extension XR lumbar spine 4-5 view Imaging Routine Lumbar pain Expected: 02/24/2025, Expires: 02/24/2026 [facility] Work Phone: Comment on above: Expected: 02/24/2025 , Expires: 02/24/2026 Start: 08-14-2024 Medicare Advantage Annual Wellness Visit Medicare Advantage Annual Wellness Visit [facility] Start: 07-25-2024 Diabetes mellitus screening Diabetes Screening [facility] Start: 07-23-2024 Thyroid stimulating hormone measurement TSH Level [facility] Start: 2024 RSV Immunization for Adults (1 - 1-dose 75+ series) RSV Immunization for Adults (1 - 1-dose 75+ series) [facility] Start: 04-14-2024 COVID-19 Vaccine ( season) COVID-19 Vaccine ( season) [facility] Start: 04-14-2024 COVID-19 Vaccine ( season) COVID-19 Vaccine ( season) [facility] Start: 04-14-2024 Influenza vaccination [facility] Start: 12-22-2023 End: 12-22-2023 Patient encounter procedure 12/22/2023 11:00 AM EDT Appointment [facility] [address] [place] [id number] Almas Laureano MD [address] [facility] [address] [place], [place] [id number] [facility] [address] Start: 09-13-2023 End: 09-13-2024 MR Chest WO contrast MR hip right wo Imaging Routine Right hip pain Expected: 09/13/2023, Expires: 09/13/2024 [facility] [employer] Work Phone: Comment on above: Expected: 09/13/2023 , Expires: 09/13/2024 Start: 09-13-2023 End: 09-13-2023 Patient encounter procedure 09/13/2023 9:00 AM EST Office Visit [facility] [address] [place] [address] [place] [address] Almas Laureano MD [address] [facility] [address] [place] [address] [facility] Start: 09-11-2023 End: 09-11-2024 XR Hip - right 3 Views XR hip right 2 or 3 views Imaging Routine Right hip pain Expected: 09/11/2023, Expires: 09/11/2024 [facility] [employer] Work Phone: Comment on above: Expected: 09/11/2023 , Expires: 09/11/2024 Start: 08-30-2023 End: 08-30-2023 Patient encounter procedure 08/30/2023 1:45 PM EST Office Visit [facility] [address] [place] [address] [place] [address] Almas Laureano MD [address] [facility] [address] [place], [place] [id number] [facility] Start: 08-14-2023 Medicare Advantage Annual Wellness Visit Medicare Advantage Annual Wellness Visit [facility] Start: 05-31-2023 End: 05-31-2024 C reactive protein [Mass/volume] in Serum or Plasma C-reactive protein Lab Routine Status post total right knee replacement Primary osteoarthritis of right knee Expected: 05/31/2023 (Approximate), Expires: 05/31/2024 [facility] Comment on above: Expected: 05/31/2023 (Approximate), Expires: 05/31/2024 Start: 05-31-2023 End: 05-31-2024 Erythrocyte sedimentation rate Sedimentation rate, automated Lab Routine Status post total right knee replacement Primary osteoarthritis of right knee Expected: 05/31/2023 (Approximate), Expires: 05/31/2024 [facility] Work Phone: Comment on above: Expected: 05/31/2023 (Approximate), Expires: 05/31/2024 Start: 05-17-2023 End: 05-17-2023 Patient encounter procedure 05/17/2023 9:00 AM EDT Office Visit [facility] [address] [place] [address] [place] [phone] Almas Laureano MD [address] [facility] [address] [place], [place] [id number] [facility] Start: 04-14-2023 COVID-19 Vaccine ( season) COVID-19 Vaccine ( season) [facility] Start: 04-14-2023 Influenza vaccination [facility] Start: 02-08-2023 End: 02-08-2023 Patient encounter procedure 02/08/2023 1:00 PM EDT Office Visit [facility] [address] [facility] [address] [place] [address] Abiola Connolly PA-C [address] [facility] [address] [place], [place] [id number] [facility] Start: 02-01-2023 End: 02-02-2024 XR Knee - right 1 or 2 Views XR knee 1 or 2 views right Imaging Routine S/P total knee arthroplasty, right Expected: 02/01/2023, Expires: 02/02/2024 [facility] Comment on above: Expected: 02/01/2023 , Expires: 02/02/2024 Start: 02-01-2023 End: 02-02-2024 XR knees anteroposterior standing bilateral XR knees anteroposterior standing bilateral Imaging Routine S/P total knee arthroplasty, right Expected: 02/01/2023, Expires: 02/02/2024 [facility] Work Phone: Comment on above: Expected: 02/01/2023 , Expires: 02/02/2024 Start: 01-12-2023 End: 01-12-2023 Admission to same day surgery center 01/12/2023 Surgery Procedural Almas Laureano MD [address] [facility] [address] [place] [address] Right Total Knee Arthroplasty [31689 (CPT )] [facility] MAIN OR Comment on above: Right Total Knee Art hroplasty [20981 (CPT )] Start: 01-12-2023 End: 01-12-2023 Arthrp kne condyle&platu medial&lat compartments [facility] Operating Room Start: 01-12-2023 Subsequent hospital visit by physician 01/12/2023 Hospital Encounter Procedural Almas Laureano MD [address] [facility] [address] [place] [address] [facility] MA[facility] OR Start: 01-05-2023 End: 01-05-2023 Admission to establishment 01/05/2023 Pre-Admission Testing Pre-Admission Testing [facility] Pre-Admit Testing Start: 12-14-2022 End: 12-14-2022 Patient encounter procedure 12/14/2022 Office Visit Orthopedic Surgery Almas Laureano MD [address] [facility] [address] [place] [address] [facility] Start: 12-12-2022 End: 12-13-2023 XR Knee - right 1 or 2 Views XR knee 1 or 2 views right Imaging Routine Right knee pain, unspecified chronicity Expected: 12/12/2022, Expires: 12/13/2023 [facility] Comment on above: Expected: 12/12/2022 , Expires: 12/13/2023 Start: 12-12-2022 End: 12-13-2023 XR knees anteroposterior standing bilateral XR knees anteroposterior standing bilateral Imaging Routine Right knee pain, unspecified chronicity Expected: 12/12/2022, Expires: 12/13/2023 [facility] Work Phone: Comment on above: Expected: 12/12/2022 , Expires: 12/13/2023 Start: 08-17-2022 End: 08-17-2022 Patient encounter procedure 08/17/2022 Office Visit Orthopedic Surgery Almas Laureano MD [address] [facility] [address] [place] [address] [facility] Start: 06-01-2022 Annual Wellness Visi t (AWV) Annual Wellness Visit (AWV) [facility] Start: 05-18-2022 End: 05-18-2022 Patient encounter procedure 05/18/2022 Office Visit Orthopedic Surgery Almas Laureano MD [address] [facility] [address] [place] [address] [facility] Start: 05-18-2022 End: 05-18-2022 Nursing evaluation of patient and report 05/18/2022 Nurse Only Orthopedic Surgery [facility] Start: 05-05-2022 End: 05-05-2022 Patient encounter procedure 05/05/2022 Office Visit Orthopedic Surgery Kim Muhammad MD [address] [facility] [address] [place], [place] [phone] [facility] Start: 05-05-2022 End: 05-05-2022 Nursing evaluation of patient and report 05/05/2022 Nurse Only Orthopedic Surgery [facility] Start: 04-28-2022 End: 04-28-2022 Patient encounter procedure 04/28/2022 Office Visit Orthopedic Surgery Kim Muhammad MD [address] [facility] [address] [place], [place] [id number] [facility] Start: 04-28-2022 End: 04-28-2022 Nursing evaluation of patient and report 04/28/2022 Nurse Only Orthopedic Surgery [facility] Start: 04-14-2022 Influenza vaccination [facility] Start: 03-14-2022 Influenza vaccination Flu vaccine (# 1) [facility] Start: 01-27-2022 COVID-19 Vaccine (4 - Booster for Pfizer series) COVID-19 Vaccine (4 - Booster for Pfizer series) [facility] Start: 01-27-2022 COVID-19 Vaccine (4 - Pfizer series) COVID-19 Vaccine (4 - Pfizer series) [facility] Start: 01-24-2022 End: 01-24-2022 Patient encounter procedure 01/24/2022 Office Visit Orthopedic Surgery Nurys Leong PA [address] [facility] [address] [place] [address] [facility] [place] Start: 01-24-2022 End: 01-24-2022 Nursing evaluation of patient and report 01/24/2022 Nurse Only Orthopedic Surgery [facility] [place] Start: 11-27-2021 DTaP/Tdap/Td vaccine (2 - Tdap) DTaP/Tdap/Td vaccine (2 - Tdap) [facility] Start: 04-14-2021 Influenza vaccination Flu vacc ine (Season Ended) [facility] Work Phone: Start: 01-24-2021 Annual Wellness Visi t (AWV) Annual Wellness Visit (AWV) [facility] Start: 01-18-2021 End: 01-18-2021 Patient encounter procedure 01/18/2021 Office Visit Sports Medicine [facility] Start: 12-03-2020 End: 12-03-2020 Office Visit 12/03/2020 Office Visit Sports Medicine Sid Camarena MD [address] [facility] [address] [place] [address] [phone] [facility] [place] Start: 10-04-2020 Annual Wellness Visi t (AWV) Annual Wellness Visit (AWV) [facility] Work Phone: Start: 09-30-2020 COVID-19 Vaccine (2 - Pfizer 2-dose series) COVID-19 Vaccine (2 - Pfizer 2-dose series) [facility] Work Phone: Start: 2014 Pneumococcal 65+ yea rs Vaccine (1 - PCV) Pneumococcal 65+ years Vaccine (1 - PCV) [facility] Start: 2014 Pneumococcal 65+ yea rs Vaccine (1 of 1 - PPSV23) Pneumococcal 65+ years Vaccine (1 of 1 - PPSV23) [facility] Work Phone: Start: 2009 RSV Immunization age d 60 or older (1 - 1-dose 60+ series) RSV Immunization aged 60 or older (1 - 1-dose 60+ series) [facility] Start: 2009 RSV Immunization for Adults (1 - Risk 60-74 years 1-dose series) RSV Immunization for Adults (1 - Risk 60-74 years 1-dose series) [facility] Start: 2004 Screening for osteoporosis DEXA (modify frequency per FRAX score) [facility] Start: 1999 Pneumococcal Vaccine : 50+ Years (1 of 1 - PCV) Pneumococcal Vaccine: 50+ Years (1 of 1 - PCV) [facility] Start: 1999 Screening for malign ant neoplasm of breast Breast cancer screen [facility] Start: 1999 Screening for malign ant neoplasm of colon Colon cancer screen colonoscopy [facility] Work Phone: Start: 1999 Shingles Vaccine (1 of 2) Shingles Vaccine (1 of 2) [facility] Start: 1999 Zoster Vaccines (1 of 2) Zoster Vacc kesha (1 of 2) [facility] Start: 1994 Screening for malign ant neoplasm of colon [facility] Start: 1989 Screening for malign ant neoplasm of breast Mammogram [facility] Start: 1968 DTaP/Tdap/Td vaccine (1 - Tdap) DTaP/Tdap/Td vaccine (1 - Tdap) [facility] Start: 1968 DTaP/Tdap/Td Vaccine s (1 - Tdap) DTaP/Tdap/Td Vaccines (1 - Tdap) [facility] Start: 1968 Pneumococcal Vaccine : 50+ Years (1 of 2 - PCV) Pneumococcal Vaccine: 50+ Years (1 of 2 - PCV) [facility] Start: 1967 Diabetes mellitus screening Diabetes Screening [facility] Start: 1967 Hepatitis C screening S [facility] Start: 1961 Depression Monitoring Depression Mon itoring [facility] Start: 1961 Depression Screen Depression Screen [facility] Start: 1961 Depression Screening Depression Scre ening [facility] Start: 1961 Depresssion Monitoring Depresssion M onitoring [facility] Start: 1959 Lipid panel [facility] Start: 1955 Pneumococcal Vaccine : 65+ Years (1 - PCV) Pneumococcal Vaccine: 65+ Years (1 - PCV) [facility] Start: 1955 Pneumococcal Vaccine : 65+ Years (1 of 2 - PCV) Pneumococcal Vaccine: 65+ Years (1 of 2 - PCV) [facility] Start: 1949 COVID-19 Vaccine (#1) COVID-19 Vacci ne (#1) [facility] Start: 1949 Annual Wellness Visi t (AWV) Annual Wellness Visit (AWV) [facility] Start: 1949 Hepatitis B Vaccines (1 of 3 - 3-dose series) Hepatitis B Vaccines (1 of 3 - 3-dose series) [facility] Start: 1949 Hepatitis C screening Hepatitis C sc reen [facility] Work Phone: Start: 1949 Lipid panel Lipid Panel [facility] Start: 1949 Medicare Advantage Annual Wellness Visit (AWV) Medicare Advantage Annual Wellness Visit (AWV) [facility] Start: 1949 Screening for malign ant neoplasm of colon [facility] Start: 1949 Screening for osteoporosis Bone Density Scan [facility] Start: 1949 Thyroid stimulating hormone measurement TSH Level [facility] Bacteria identified in Blood by Culture Blood culture Site #1 - Suspected Infection Microbiology STAT 09/23/2024 11:06 AM EST [facility] [employer] End: 06-01-2022 Basic metabolic 2000 panel - Serum or Plasma Basic Metabolic Panel Lab Routine Tomorrow AM for 1 Occurrences starting 06/01/2022 until 06/01/2022 [employer] Work Phone: Comment on above: Tomorrow AM for 1 Oc currences starting 06/01/2022 until 06/01/2022 Basic metabolic 2000 panel - Serum or Plasma Basic Metabolic Panel Lab Routine 06/01/2022 1:41 AM EDT [employer] Work Phone: End: 01-19-2022 CBC panel - Blood by Automated count CBC Lab Routine Tomorrow AM for 1 Occurrences starting 01/19/2022 until 01/19/2022 [employer] Work Phone: Comment on above: Tomorrow AM for 1 Oc currences starting 01/19/2022 until 01/19/2022 CBC panel - Blood by Automated count CBC Lab Routine 01/19/2022 4:15 AM EDT [employer] Work Phone: End: 06-01-2022 CBC panel - Blood by Automated count CBC Lab Timed Tomorrow AM for 1 Occurrences starting 06/01/2022 until 06/01/2022 [facility] Work Phone: Comment on above: Tomorrow AM for 1 Oc currences starting 06/01/2022 until 06/01/2022 CBC panel - Blood by Automated count CBC Lab Timed 06/01/2022 1:41 AM EDT [employer] Work Phone: End: 06-01-2022 FL Greater Than 1 Hour [facility] Work Phone: Comment on above: Once for 1 Occurrenc es starting 06/01/2022 until 06/01/2022 End: 06-01-2022 Intermittent pulse oximetry Pulse Oximetry Spot Check Respiratory Care Routine One Time for 1 Occurrences starting 06/01/2022 until 06/01/2022 [employer] [facility] Work Phone: Comment on above: One Time for 1 Occur rences starting 06/01/2022 until 06/01/2022 End: 09-23-2024 Legionella and Streptococcus Urine Antigen [facility] Work Phone: Comment on above: Once (Lab) for 1 Occ urrences starting 09/23/2024 until 09/23/2024 OUTSIDE PROCEDURE SCAN OUTSIDE P ROCEDURE SCAN Procedures Ordered: 11/23/2023 [facility] Comment on above: Ordered: 11/23/2023 Oxygen therapy [Mini mum Data Set] Initiate Oxygen Therapy Protocol Respiratory Care Routine As Needed until discontinued starting 01/18/2022 [employer] Work Phone: Comment on above: As Needed until disc ontinued starting 01/18/2022 Oxygen therapy [Mini mum Data Set] Initiate Oxygen Therapy Protocol Respiratory Care Routine As Needed until discontinued starting 05/30/2022 [employer] Work Phone: Comment on above: As Needed until disc ontinued starting 05/30/2022 End: 05-30-2022 Troponin I.cardiac [Mass/volume] in Serum or Plasma Troponin Lab Timed One Time for 1 Occurrences starting 05/30/2022 until 05/30/2022 [employer] Work Phone: Comment on above: One Time for 1 Occur rences starting 05/30/2022 until 05/30/2022 End: 05-30-2022 Urinalysis Urinalysis Lab STAT Once for 1 Occurrences starting 05/30/2022 until 05/30/2022 [employer] Work Phone: Comment on above: Once for 1 Occurrenc es starting 05/30/2022 until 05/30/2022 End: 05-30-2022 Urine Drug Screen Urine Drug Screen Lab STAT Once for 1 Occurrences starting 05/30/2022 until 05/30/2022 [employer] Work Phone: Comment on above: Once for 1 Occurrenc es starting 05/30/2022 until 05/30/2022 End: 09-23-2024 Urine Hold Cup Urine Hold Cup Lab Timed Once for 1 Occurrences starting 09/23/2024 until 09/23/2024 [facility] Comment on above: Once for 1 Occurrenc es starting 09/23/2024 until 09/23/2024 End: 09-23-2024 US TRAUMA FAST POCUS [facility] Work Phone: Comment on above: Once for 1 Occurrenc es starting 09/23/2024 until 09/23/2024 VL DUP LOWER EXTREMI TY VENOUS BILATERAL VL DUP LOWER EXTREMITY VENOUS BILATERAL Imaging Routine Every Mo,Th until discontinued starting 06/02/2022, 1 completed [facility] Work Phone: Comment on above: Every Mo,Th until di scontinued starting 06/02/2022, 1 completed End: 09-13-2023 XR Hip - right 3 Views [facility] Work Phone: Comment on above: Once for 1 Occurrenc es starting 09/13/2023 until 09/13/2023 End: 12-14-2022 XR Knee - right 1 or 2 Views [facility] Comment on above: Once for 1 Occurrenc es starting 12/14/2022 until 12/14/2022 End: 01-12-2023 XR Knee - right 1 or 2 Views [facility] Work Phone: Comment on above: Once for 1 Occurrenc es starting 01/12/2023 until 01/12/2023 End: 12-14-2022 XR knees anteroposterior standing bilateral [facility] Work Phone: Comment on above: Once for 1 Occurrenc es starting 12/14/2022 until 12/14/2022 End: 02-25-2025 XR Lumbar spine Views W flexion and W extension [facility] Comment on above: Once for 1 Occurrenc es starting 02/25/2025 until 02/25/2025 End: 03-03-2022 XR Shoulder Left 2 VW [employer] Work Phone: Comment on above: 1 Occurrences starti ng 03/03/2022 until 03/03/2022 End: 05-05-2022 XR Shoulder Left 2 VW [facility] Work Phone: Comment on above: 1 Occurrences starti ng 05/05/2022 until 05/05/2022 Immunizations Immunization Date Immunization Notes Care Provider [place] valentin 07-23-2023 tetanus toxoid, redu dina diphtheria toxoid, and acellular pertussis vaccine, adsorbed Jaimee Ramírez PA-C Work Phone: [facility] 12-02-2021 Covid-19, Pfizer Gra y Top, Do Not Dilute, (Age 12 Y+), Im, L [employer] Work Phone: [facility] 06-03-2021 Pfizer SARS-CoV-2 Vaccination [employer] Work Phone: [facility] 09-09-2020 Pfizer SARS-CoV-2 Vaccination [employer] Work Phone: [email or web address] [employer] 06-02-2016 influenza virus vacc ine, unspecified formulation [employer] Work Phone: [facility] Payers Date Payer Category Payer Self-pay [id number] 2024 Unknown [id number] 2023 Medicare HMO [id number] 2023 Unknown [id number] 2022 Medicare 2020 Medicaid [id number] 2020 Medicaid [id number] [id number] 2016 Medicare MEDICARE MEDICAR E PART A AND B [id number] 2016-Present [phone] [place] [address] [id number] [id number] 1949 Unknown [id number] 2.16.840.1.832630.3.579.2. 1949 Unknown [id number] 2.16840.1.451425.3.579.2. 1949 Unknown [id number] 2.16.840.1.345039.3.579.2 1949 Unknown [id number] 2.16.840.1.846618.3.579.2 1949 Unknown [id number] 2.16840.1.330023.3.579.2. 1949 Unknown [id number] 2.16.840.1.446947.3.579.2 1949 Unknown [id number] 2.16.840.1.354495.3.579.2. 1949 Unknown [id number] 2.16.840.1.349150.3.579.2. 1949 Unknown [id number] 2.16.840.1.640908.3.579.2. 1949 Unknown [id number] 2.16.840.1.335645.3.579.2. 1949 Unknown [id number] 2.16.840.1.028183.3.579.2.66 Unknown Unknown [id number] 2.16.840.1.611742.3.579.2.462 Unknown [id number] 2.16.840.1.677188.3.579.2.462 Unknown [id number] 2.16.840.1.547881.3.579.2.462 Unknown [id number] 2.16.840.1.871848.3.579.2.462 Unknown [id number] 2.16.840.1.999882.3.579.2.462 Unknown [id number] 2.16.840.1.554058.3.579.2.462 Unknown [id number] 2.16.840.1.958303.3.579.2.462 Unknown [id number] 2.16.840.1.967744.3.579.2.462 Social History Date Type Detail Facility Start: 10-06-2020 End: 03-03-2022 Tobacco smoking status SDIS Former smoker [facility] Phone: Start: 10-06-2020 End: 07-19-2022 Tobacco use and exposure Never used [facility] Phone: Start: 10-06-2020 End: 02-25-2025 Alcohol intake Ex-drinker (finding) [facility] Phone: Start: 1950 Sex Assigned At Not on file S [employer] Work Phone: Start: 1950 Sex Assigned At Female W [facility] End: 08-14-2011 History of tobacco use Current smoker [facility] Phone: Start: 01-08-2022 End: 02-08-2023 Exposure to SARS-CoV-2 (event) Not sure [facility] Phone: End: 08-14-2011 History of tobacco use Cigarette Smoker [facility] Phone: [facility] Start: 07-19-2022 Tobacco smoking stat [facility] Never smoked tobacco [facility] [employer] Start: 07-06-2022 History SDOH Alcohol Frequency 1 [facility] Start: 07-06-2022 History SDOH Alcohol Std Drinks 0 [facility] [employer] [facility] Start: 07-06-2022 End: 07-24-2023 History of Social function [facility] Start: 07-06-2022 End: 07-24-2023 Alcohol Use Disorder Identification Test - Consumption [AUDIT-C] [facility] How often to you hav e a drink containing alcohol? Never [facility] How many standard dr inks containing alcohol do you have on a typical day? Patient does not drink [facility] Do you belong to any clubs or organizations such as mosque groups, unions, fraternal or athletic groups, or school groups? No [email or web address] Do you feel stress - tense, restless, nervous, or anxious, or unable to sleep at night because your mind is troubled all the time - these days [OSQ] Very much [email or web address] (I/We) worried wheth er (my/our) food would run out before (I/we) got money to buy more. Never true [email or web address] Start: 03-14-2022 End: 10-18-2024 Sex Female (finding) [email or web address] NEGATED: Highlighted rowStart: NINF History of tobacco use Passive smoker [facility] [employer] [facility] Medical Equipment Procedure Code Equipment Code Equipment Origin al Text Equipment Identifier Dates Cement Bone Simp nick P Full - [id number] ()[id number], [id number] FDA Start: 01-12-2023 Attune Knee Syst em Tibial Insert Fixed Bearing Medial Stabilized Size 5 Right ()[id number] [id number] FDA Start: 01-12-2023 Patella Dome Med Attune 35mm - [id number] ()[id number] [id number], [id number] FDA Start: 01-12-2023 Attune Femoral Cruciate Retaining Size 5 Right Cemented ()[id number] [id number], [id number] FDA Start: 01-12-2023 Base Tib Cement Attune Fb Sz7 - [id number] ()[id number] [id number], [id number] FDA Start: 01-12-2023 Clinical Notes 01-07-2022 to 02-25-2025 Opal Espinoza MD - 02/25/2025 2:45 PM EDTPatient Elizabeth Nieves RN - 09/27/2024 3:48 PM Pritesh Nieves, RN - 09/27/2024 3:48 PM Diogo Alexandre, RN - 09/26/2024 10:00 AM EST Note Date & Type Note Facility 02-25-2025 History of Presen t illness Narrative Images from the original note were not included. [facility] [place] [address] Dept: [phone] Dept Chief Complaint Patient presents with Follow-up [...] exercises given. and an outside facility - care home. -Written patient information provided in the AVS. -Reasons to call or return discussed with patient, including signs of worsening nerve dysfunction. -Will see back in ~6 weeks. No follow-ups on file. Opal Espinoza MD 02/25/2025 3:06 PM Please note that portions of this note may have been completed with voice recognition software. Documentation reviewed prior to signing but minor errors in inside account representative may have occurred. documented in this encounter [facility] 02-25-2025 Instructions Opal Espinoza MD - 02/25/2025 2:45 PM EDT Images from the original note were not included. documented in this encounter [facility] 09-27-2024 Nurse Note Patient IV taken out. Patient discharged off unit in stable condition via private vehicle. [facility] 09-27-2024 Nurse Note Patient IV taken out. [...] verbalized understanding. Prevention Measures in place, including: Parks sheet with pillows in place, Bilateral) foam [...] gluteal cleft. Prevention Measures in place, including: Parks sheet with pillows/wedges, Foam heel protectors (obtained [...] pt's bedside table. documented in this encounter [facility] 09-27-2024 Note Formatting of this n ote might be different from the original. Auth approved. TCC messaged attending to place orders, RN and SW to make aware of DC today. Discharge order placed. ROSALIO completed. TC tasked [employer] to set up transport. Transport set up for 3:00 pm. TCC notified RN and executive legal secretary of time. TCC updated pt at bedside of DC and time and possible cost of transport. Pt verbalized understanding. TCC spoke to son via phone call to update and time. [employer] notified facility. TCC tasked [employer] to transmit discharge ordrers to SNF. Pt does not need PASR as she is a return to same facility. Discharge date updated and milestones completed. Pt will be transported to [facility] via ambulance transport today at 3:00 pm. [facility] 09-27-2024 Note Formatting of this n ote might be different from the original. Auth approved. TCC messaged attending to place orders, RN and SW to make aware of DC today. Discharge order placed. ROSALIO completed. TC tasked [employer] to set up transport. Transport set up for 3:00 pm. TCC notified RN and executive legal secretary of time. TCC updated pt at bedside of DC and time and possible cost of transport. Pt verbalized understanding. TCC spoke to son via phone call to update and time. [employer] notified facility. TCC tasked [employer] to transmit discharge ordrers to SNF. Pt does not need PASR as she is a return to same facility. Discharge date updated and milestones completed. Pt will be transported to [facility] via ambulance transport today at 3:00 pm. [facility] 09-27-2024 Miscellaneous Notes Auth approved. TCC messaged attending to place orders, RN and SW to make aware of DC today. Discharge order placed. ROSALIO completed. TC tasked [employer] to set up transport. Transport set up for 3:00 pm. TCC notified RN and executive legal secretary of time. TCC updated pt at bedside of DC and time and possible cost of transport. Pt verbalized understanding. TCC spoke to son via phone call to update and time. [employer] notified facility. TCC tasked [employer] to transmit discharge ordrers to SNF. Pt does not need PASR as she is a return to same facility. Discharge date updated and milestones completed. Pt will be transported to [facility] via ambulance transport today at 3:00 pm. Confirmed pickup time of 3 pm by transport company Miki Reyes at phone number . Location of facility drop off is [facility]. Facility notified via [employer], [facility] Betzaida Andrade notified on secure chat. MAR & Discharge med list transmitted to [facility] via [employer] per TCC request. Transport requested in [facility]. [...] TCC tasked Rosanna to start auth for [facility]. Auth pending. TCC will follow for auth. Problem: Pain - Adult Goal: Verbalizes/displays adequate comfort level or baseline comfort level Outcome: Progressing Flowsheets (Taken 09/26/2024 045) Verbalizes/displays adequate comfort level or baseline comfort level: Encourage patient to monitor pain and request assistance Assess pain using appropriate pain scale Problem: Safety - Adult Goal: Free from fall injury Outcome: Progressing Problem: Knowledge Deficit Goal: Patient/family/caregiver demonstrates understanding of disease process, treatment plan, medications, and discharge instructions Outcome: Progressing Flowsheets (Taken 09/26/2024 045) Patient/family/caregiver demonstrates understanding of disease process, treatment [...] SNF LOC if possible, PT recommending SNF. [facility] will take pt back SNF [...] or improved Outcome: Progressing [facility] TCC request. Await review and response regarding ability to accept. TCC notified. TCC completed chart review. 1 blood culture positive and 1 in process, will follow. PO azithromycin and IV rocephin. 3 L of O2-baseline from facility. Wound care consulted. Geriatrics consulted. PT and OT evals pending. Stool studies ordered, GI and c-diff rule out now. Pt is from [facility]. TCC spoke to pt at bedside, she is agreeable to return. TCC spoke to son Giana via phone call to update of DC plan. TCC tasked [employer] to make a LTC return referral. TCC will follow for facility response. Problem: Pain - Adult Goal: Verbalizes/displays adequate comfort level or baseline comfort level Outcome: Progressing Problem: Safety - Adult Goal: Free from fall injury Outcome: Progressing Problem: Knowledge Deficit Goal: Patient/family/caregiver demonstrates understanding of disease process, treatment plan, medications, and discharge instructions Outcome: Progressing documented in this encounter [facility] 09-27-2024 Note Formatting of this n ote might be different from the original. Confirmed pickup time of 3 pm by transport Melon Power at phone number . Location of facility drop off is [facility]. Facility notified via [employer], [facility] Betzaida Andrade notified on secure chat. [facility] 09-27-2024 Note Formatting of this n ote might be different from the original. Confirmed pickup time of 3 pm by transport [employer] at phone number . Location of facility drop off is [facility]. Facility notified via [employer], [facility] Betzaida Andrade notified on secure chat. [facility] 09-27-2024 Note Formatting of this n ote might be different from the original. MAR & Discharge med list transmitted to [facility] via [employer] per TCC request. [facility] 09-27-2024 Note Formatting of this n ote might be different from the original. MAR & Discharge med list transmitted to [facility] via [employer] per TCC request. [facility] 09-27-2024 Note Formatting of this n ote might be different from the original. Transport requested in [facility]. Awaiting time confirmation. [facility] 09-27-2024 Note Formatting of this n ote might be different from the original. Transport requested in [employer]. Awaiting time confirmation. [facility] 09-27-2024 Note Hospitalist Discharg e Summary Andre [...] Commonly known as: ZyrTEC cholecalciferol 1.25 MG (36878 UT) tablet Commonly known as: Vitamin D3 [...] your nurse o (more content not included)... [facility] 09-27-2024 Hospital course Narrative Hospitalist Discharge Summary [...] Commonly known as: ZyrTEC cholecalciferol 1.25 MG (11123 UT) tablet Commonly known as: Vitamin D3 [...] capsule Recommended Follow-up: Ria Longoria MD [address] [facility] [id number] Follow up in 1 week(s) Complexity of Follow up: [] Moderate Complexity: follow up within 7-14 calendar days (55837) [x] Severe Complexity: follow up within 7 calendar days (12464) Follow up Testing, Pending results or Referrals [...] DO Division of Hospital Medicine Inpatient Medical Services/[facility] 09/27/2024, 10:07 AM documented in this encounter [facility] 09-27-2024 Note Hospitalist Progress Note Subjective: Admit Date: 09/23/2024 PCP: Ria Longoria MD Room#: [id number] A Chief Complaint Patient presents with Fall Fall and hit head on floor. c/o R hip pain. Baseline Aox3, per EMS Aox1-2. Takes plavix and has been feeling ill lately. Brief Hospital course: Presented after a fall. Pt had a witnessed mechanical fall at [facility], has a bruise on forehead. Pt reports [...] Emergency Contact: Giana Blanca Mobile Relation: Son Shoemaking Cutter needed? No Dennis Davies DO Division of Hospital Medicine Inpatient Medical Services/[facility] 09-27-2024 Note Hospitalist Progress Note Subjective: Admit Date: 09/23/2024 PCP: Ria Longoria MD Room#: [id number] A Chief Complaint Patient presents with Fall [...] Emergency Contact: Giana Blanca Mobile Relation: Son Shoemaking Cutter needed? No Dennis Davies DO Division of Hospital Medicine Inpatient Medical Services/[facility] 09-27-2024 History of Presen t illness Narrative Hospitalist Progress Note Subjective: Admit Date: 09/23/2024 PCP: Ria Longoria MD Room#: [id number] A Chief Complaint Patient presents with Fall Fall and hit head on floor. c/o R hip pain. Baseline Aox3, per EMS Aox1-2. Takes plavix and has been feeling ill lately. Brief Hospital course: Presented after a fall. Pt had a witnessed mechanical fall at [facility], has a bruise on forehead. Pt reports [...] Emergency Contact: Giana Blanca Mobile Relation: Son Shoemaking Cutter needed? No Dennis Davies DO Division of Hospital Medicine Inpatient Medical Services/[facility] Geriatric Medicine Inpatient Consult Service Admission Date:09/23/2024 [...] review of chart, plan to return to [facility] Bipolar disorder - per facility is followed by in house psych team at [facility] - see medication recommendations as below, significant polypharmacy- on several psych medications, would benefit from psychiatry input for ability to limit her pill burden Polypharmacy - Per nurse Carli at [facility] on 09/24- patient is reported to be [...] of continuation of both Seroquel and Risperdal alf - Tizanidine 2mg BID- unclear indication for this, would recommend attempts at gradual dose reduction vs changing to PRN - Pregabalin 150mg BID- restarted - Vistaril 25mg BID- OK to continue to hold at this time, 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 alternative alf- due to anticholinergic effects may further contribute [...] she knows that she is currently at [facility] Therapy recommendations Seen by PT/OT today- both [...] mg, 10 mg, Oral, TID, Shweta Carson, [employer] REPA[employer]ER - MAIL HANDLER, 10 mg at 09/26/24 1337 carBAMazepine (TEGretol) [...] Date: 09/23/2024 PCP: Ria Longoria MD Room#: [id number] A Chief Complaint Patient presents with Fall Fall and hit head on floor. c/o R hip pain. Baseline Aox3, per EMS Aox1-2. Takes plavix and has been feeling ill lately. Brief Hospital course: Presented after a fall. Pt had a witnessed mechanical fall at [facility], has a bruise on forehead. Pt reports [...] Primary Emergency Contact: [employer] [employer] Relation: Son Shoemaking Cutter needed? No Dennis Davies DO Division of Hospital Medicine Inpatient Medical Services/[facility] Nutrition Assessment Type and Reason for Visit: Initial (parts technician referral for poor PO intake) Nutrition Recommendations/Plan: [...] that she has had any weight loss [employer] but unable to state UBW, pt CBW 182# bedscale on 09/25, was 180# no method on 09/23 presentation, per EPIC review --> very limited history/nothing recent, noted 05/30/22: 195#) Body Fat Loss: No significant body fat loss Muscle Mass Loss: No significant muscle mass loss Fluid Accumulation: No significant fluid accumulation Staff Developer Strength: Not Performed Nutrition Assessment: pt with PMH significant for bipolar disorder, DVT, hypothyroidism, TIA, COPD, COVID-19, depression, dysphagia, fibromyalgia, HLD, IBS, obesity and RAULITO (per merge chart) who presented to [facility] ED on 09/23/24 from facility s/p fall, [...] is impacting appetite, pt RN from facility ([facility]) reported pt with baseline anxiety and follows with in house psych rn, Geriatrics noted significant polypharmacy- on several psych [...] 1-25% B and refused L/D, RD received parts technician referral for poor intake, at time of assessment pt with breakfast tray in front of her, she states that she tried to eat some but it was cold, RD offered to heat it up but pt requesting a new [place] muffin and rico- RD called room service to provide, pt states that her appetite is poor because her food was cold, pt denies food allergies, denies chewing/swallowing issues, per review of paper chart at [facility] pt was ordered a regular diet, regular textures/thin liquids, RD offered ONS to which pt replies 'they tried to make me drink those before and they are terrible', RD offered Ensure Clear and Magic Cup instead and pt continues to refuse ONS initiation despite encouragement, pt denies that she has had any weight loss [employer] but unable to 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 Estimated Daily Nutrient Needs: Energy Requirements Based On: Kcal/kg Weight Used for Energy Requirements: [place] Weight for Energy Calculation (kg): 60.2 kg Total Energy Requirements (kcals/day): 1505-1806kcals/day Weight Used for Protein Requirements: [place] Weight in Kg Used for Protein Requirements: 60.2 kg Estimated Total Protein (g/day): 60-72gm pro/day Estimated Daily Total Fluid (ml/day): per MD recommendations Nutrition Related Findings: Lives with: Other (Comment) (prison care facility) Orientation Level: Oriented to person, [...] unsure of UBW but denies weight loss [employer]) [place] Body Weight (lbs) (Calculated): 133 lbs [place] Body Weight (Kg) (Calculated): 60 kg % [place] Body Weight (Calculated): 136.8 % BMI (kg/m2) [...] determine Guerda Ventura RD Contact: available via Inktd chat or *[phone] [facility] Geriatric Medicine Inpatient Consult Service Admission Date:09/23/2024 [...] followed by in house psych team at [facility] - see medication recommendations as below, significant polypharmacy- on several psych medications, would benefit from psychiatry input for ability to limit her pill burden Hypothyroidism - TSH within normal limits - per facility her [employer] dose of Levothyroxine is 88mcg, currently ordered 75mcg, please adjust dose if appropriate- defer management to primary team Polypharmacy - I personally called and spoke with nurse Boyce at [facility] on 09/24 to review medications- reported to [...] of continuation of both Seroquel and Risperdal 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 - Tizanidine 2mg BID- unclear indication for this, would recommend attempts at gradual dose reduction vs changing to PRN - Pregabalin 150mg BID- restarted - Vistaril 25mg BID- OK to continue to hold at this time, 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 alternative alf- due to anticholinergic effects may further contribute [...] mg, 10 mg, Oral, TID, Shweta Carson, FREDERICK - MAIL HANDLER, 10 mg at 09/25/24 1401 carBAMazepine (TEGretol) tablet 200 mg, 200 mg, Oral, TID, Lashon Sullivan MD, 200 mg at 09/25/24 0952 cefTRIAXone [...] Sullivan MD, 40 mg at 09/25/24 1539 polyethylene glycol (PEG) 3350 (Miralax) packet 17 [...] original note were not included. PHYSICAL THERAPY [facility] Treatment Note Name/MRN: Andre Blanca ([id number]) Date of : 1950 Age: 74 y.o. Room/Bed: E5-515/E5-515 A Discharge Recommendation: Senior Care Facility Equipment Needed: No Prior Level of [...] Mobility Raw Score (No Stairs) : 15 [facility] Goals Patient Stated Goal: to return to [...] original note were not included. OCCUPATIONAL THERAPY [facility] Initial Evaluation Name/MRN: Andre Blanca ([id number]) Evaluation Date: 09/25/2024 Date of : 1950 Admission Date: 09/23/2024 10:34 AM Age: 74 y.o. Room/Bed: E5-515/E5-515 A Discharge Recommendation: Senior Care Facility Assessment IMPRESSION: Pt would benefit from [...] Social/Functional History Patient admitted from SNF. - [facility] Assistive Equipment: rollator Prior Level of Function [...] of Care supervision is transferred to a [facility] Therapy Services Occupational Therapist. Goals and/or treatment plan was established in collaboration with patient/family/other representatives. Yu Spear MS, OTR/L Hospitalist Progress Note Subjective: Admit Date: 09/23/2024 PCP: Ria Longoria MD Room#: E5515/E5-172 A Chief Complaint Patient presents with Fall [...] Emergency Contact: Giana Blanca Mobile Relation: Son Shoemaking Cutter needed? No Dennis Davies DO Division of Hospital Medicine Inpatient Medical Services/[facility] .Nutrition rescreen completed. Patient referred to the Dietitian. Poor po intake.TESSIE Sanchez Hospitalist Progress Note Subjective: Admit Date: 09/23/2024 PCP: Ria Longoria MD Room#: E5508/E5509 A Chief Complaint Patient presents with Fall Fall and hit head on floor. c/o R hip pain. Baseline Aox3, per EMS Aox1-2. Takes plavix and has been feeling ill lately. Brief Hospital course: Presented after a fall. Pt had a witnessed mechanical fall at [facility], has a bruise on forehead. Pt reports [...] Emergency Contact: Giana Blanca Mobile Relation: Son Shoemaking Cutter needed? No Dennis Davies DO Division of Hospital Medicine Inpatient Medical Services/[facility] Images from the original note were not included. PHYSICAL THERAPY [facility] Initial Evaluation Name/MRN: Andre Blanca-GarfieldZ ([id number]) Evaluation Date: 09/24/2024 Date of : 1950 Admission Date: 09/23/2024 10:34 AM Age: 74 y.o. Room/Bed: E5-508/E5-508 A Discharge Recommendation: Senior Care Facility Equipment Needed: No Assessment IMPRESSION: 74 y/o female admitted to [facility] 09/23/2024 s/p fall at ECF. Pt reports she typically ambulates with rollator without assist at F. Required SBA for bed mobility, min assist [...] Raw Score (No Stairs) : 15 [facility] Score: Walked 25 ft or more [...] of Care supervision is transferred to a [facility] Therapy Services Physical Therapist. Goals and/or treatment plan was established in collaboration with patient/family/other representatives. documented in this encounter [facility] 09-27-2024 Plan of care note Problem: Pain [...] Interventions Goal: Assess Nutritional Intake Outcome: Progressing [facility] 09-26-2024 Note Formatting of this n ote might be different from the original. TCC updated SNF that plan to start auth today. TCC tasked Rosanna to start auth for [facility]. Auth pending. TCC will follow for auth. [facility] 09-26-2024 Note Formatting of this n ote might be different from the original. TCC updated SNF that plan to start auth today. TCC tasked Rosanna to start auth for [facility]. Auth pending. TCC will follow for auth. [facility] 09-26-2024 Note Hospitalist Progress Note Subjective: Admit Date: 09/23/2024 PCP: Ria Longoria MD Room#: E5515/E5515 A Chief Complaint Patient presents with Fall Fall and hit head on floor. c/o R hip pain. Baseline Aox3, per EMS Aox1-2. Takes plavix and has been feeling ill lately. Brief Hospital course: Presented after a fall. Pt had a witnessed mechanical fall at [facility], has a bruise on forehead. Pt reports [...] Emergency Contact: Giana Blanca Mobile Relation: Son Shoemaking Cutter needed? No Dennis Davies DO Division of [facility] Medicine Inpatient Medical Services/[facility] 09-26-2024 Note Hospitalist Progress Note Subjective: Admit Date: 09/23/2024 PCP: Ria Longoria MD Room#: M2-775/E5-092 A Chief Complaint Patient presents with Fall Fall and hit head on floor. c/o R hip pain. Baseline Aox3, per EMS Aox1-2. Takes plavix and has been feeling ill lately. Brief Hospital course: Presented after a fall. Pt had a witnessed mechanical fall at [facility], has a bruise on forehead. Pt reports [...] Emergency Contact: Giana Blanca Mobile Relation: Son Shoemaking Cutter needed? No Dennis Davies DO Division of Hospital Medicine Inpatient Medical Services/[facility] 09-26-2024 Note Nutrition Assessment Type and Reason for Visit: Initial (parts technician referral for poor PO intake) Nutrition Recommendations/Plan: [...] that she has had any weight loss [employer] but unable to state UBW, pt CBW 182# bedscale on 09/25, was 180# no method on 09/23 presentation, per EPIC review --> very limited history/nothing recent, noted 05/30/22: 195#) Body Fat Loss: No significant body fat loss Muscle Mass Loss: No significant muscle mass loss Fluid Accumulation: No significant fluid accumulation Staff Developer Strength: Not Performed Nutrition Assessment: pt with PMH significant for bipolar disorder, DVT, hypothyroidism, TIA, COPD, COVID-19, depression, dysphagia, fibromyalgia, HLD, IBS, obesity and RAULITO (per merge chart) who presented to [facility] ED on 09/23/24 from facility s/p fall, [...] is impacting appetite, pt RN from facility ([facility]) reported pt with baseline anxiety and follows with in house psych rn, Geriatrics noted significant polypharmacy- on several psych [...] 1-25% B and refused L/D, RD received parts technician referral for poor intake, at time of assessment pt with breakfast tray in front of her, she states that she tried to eat some but it was cold, RD offered to heat it up but pt requesting a new [place] muffin and rico- RD called room service to provide, pt states that her appetite is poor because her food was cold, pt denies food allergies, denies chewing/swallowing issues, per review of paper chart at [facility] pt was ordered a regular diet, regular textures/thin liquids, RD offered ONS to which pt replies 'they tried to make me drink those before and they are terrible', RD offered Ensure Clear and Magic Cupinstead and pt continues to refuse ONS initiation despite encouragement, pt denies that she has had any weight loss [employer] but unable to 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 [facility] 09-26-2024 Note Nutrition Assessment Type and Reason for Visit: Initial (parts technician referral for poor PO intake) Nutrition Recommendations/Plan: [...] that she has had any weight loss [employer] but unable to state UBW, pt CBW 182# bedscale on 09/25, was 180# no method on 09/23 presentation, per EPIC review --> very limited history/nothing recent, noted 05/30/22: 195#) Body Fat Loss: No significant body fat loss Muscle Mass Loss: No significant muscle mass loss Fluid Accumulation: No significant fluid accumulation Staff Developer Strength: Not Performed Nutrition Assessment: pt with PMH significant for bipolar disorder, DVT, hypothyroidism, TIA, COPD, COVID-19, depression, dysphagia, fibromyalgia, HLD, IBS, obesity and RAULITO (per merge chart) who presented to [facility] ED on 09/23/24 from facility s/p fall, [...] is impacting appetite, [facility] reported pt with baseline anxiety and follows with in house psych rn, Geriatrics noted significant polypharmacy- on several psych medications and recommended psychiatry input for ability to limit her pill burden (consult has not been placed), noted 09/24 pt with complaints of loose stools- CDiff and GI panel sent and negative, pt seen by PT/OT with d/c to [facility] recs. In terms of nutrition pt has been receiving a Regular Diet since 09/23, PO intakes in flowsheets reviewed --> 09/23: 1-25% D, 09/24: 1-25% B and refused L/D, RD received parts technician referral for poor intake, at time of assessment pt with breakfast tray in front of her, she states that she tried to eat some but it was cold, RD offered to heat it up but pt requesting a new [place] muffin and rico- RD called room service to provide, pt states that her appetite is poor because her food was cold, pt denies food allergies, denies chewing/swallowing issues, per review of paper chart at [facility] pt was ordered a regular diet, regular textures/thin liquids, RD offered ONS to which pt replies 'they tried to make me drink those before and they are terrible', RD offered Ensure Clear and Magic Cupinstead and pt continues to refuse ONS initiation despite encouragement, pt denies that she has had any weight loss [employer] but unable to 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 [facility] 09-26-2024 Nurse Note Wound Care consulted for [...] verbalized understanding. Prevention Measures in place, including: Parks sheet with pillows in place, Bilateral) foam [...] questions or concerns. Kimmy Alexandre RN, BSN [facility] 09-26-2024 Plan of care note Problem: Pain [...] on admission and per policy Avoid shearing [facility] 09-25-2024 Hospital Discharg e instructions Dennis Davies DO - 09/25/2024 12:48 PM EST As tolerated NA Neives RN - 09/25/2024 12:48 PM EST Images [...] Emergency Contact: Giana Blanca Mobile Relation: Son Shoemaking Cutter needed? No Past Surgical History: No past [...] Minimal assistance Toileting Minimal assistance Feeding Independent Dietary Assistant Independent Med Delivery no Wound Care Documentation [...] Date: 09/23/2024 Discharging to Facility/ Agency Name: [facility] Address:[address] [place] [id number] [employer] Professional signature: ICIAN SECTION Name: Andre Blanca Prognosis: excellent Condition at Discharge: stable Rehab Potential (if transferring to Rehab): excellent Recommended Labs or Other Treatments After Discharge: CBC and BMP in 3 days The individual is being admitted to a nursing facility directly from an [facility] or a unit of a [facility] that is not operated by or licensed by [facility] under section 5119.14 or 5160-3-15.1 5 The individual requires the level of services provided by a nursing facility for the condition for which he or she was treated in the hospital and, Physician Certification: I certify the above information and transfer of Andre Blanca is necessary for the continuing treatment of the diagnosis listed and that she requires usp facility for less than 30 days. Update Admission H&P: No change in H&P PHYSICIAN SIGNATURE: documented in this encounter [facility] 09-25-2024 Note OCCUPATIONAL THERAPY [facility] Initial Evaluation Name/MRN: Andre Blanca ([id number]) Evaluation Date: 09/25/2024 Date of : 1950 Admission Date: 09/23/2024 10:34 AM Age: 74 y.o. Room/Bed: E5-515/[facility] A Discharge Recommendation: Senior Care Facility Assessment IMPRESSION: Pt would benefit from [...] Social/Functional History Patient admitted from SNF. - [facility] Assistive Equipment: rollator Prior Level of Function [...] of Care supervision is transferred to a [facility] Therapy Services Occupational Therapist. Goals and/or treatment plan was established in collaboration with patient/family/other representatives. Yu Spear MS, OTR/L [facility] 09-25-2024 Note OCCUPATIONAL THERAPY [facility] Initial Evaluation Name/MRN: Andre Blanca ([id number]) Evaluation Date: 09/25/2024 Date of : 1950 Admission Date: 09/23/2024 10:34 AM Age: 74 y.o. Room/Bed: E5-515/E5-515 A Discharge Recommendation: Senior Care Facility Assessment IMPRESSION: Pt would benefit from [...] Social/Functional History Patient admitted from SNF. - [facility] Assistive Equipment: rollator Prior Level of Function [...] of Care supervision is transferred to a [facility] Therapy Services Occupational Therapist. Goals and/or treatment plan was established in collaboration with patient/family/other representatives. Yu Spear MS, OTR/L [facility] 09-25-2024 Note Hospitalist Progress Note Subjective: Admit Date: 09/23/2024 PCP: Ria Longoria MD Room#: Z3-185/T5-151 A Chief Complaint Patient presents with Fall Fall and hit head on floor. c/o R hip pain. Baseline Aox3, per EMS Aox1-2. Takes plavix and has been feeling ill lately. Brief Hospital course: Presented after a fall. Pt had a witnessed mechanical fall at [facility], has a bruise on forehead. Pt reports [...] Emergency Contact: Giana Blanca Mobile Relation: Son Shoemaking Cutter needed? No Dennis Davies DO Division of [facility] Medicine Inpatient Medical Services/[facility] 09-25-2024 Note Hospitalist Progress Note Subjective: Admit Date: 09/23/2024 PCP: Ria Longoria MD Room#: E5-515/E5[facility] A Chief Complaint Patient presents with Fall [...] Emergency Contact: Giana Blanca Mobile Relation: Son Shoemaking Cutter needed? No Dennis Davies DO Division of Hospital Medicine Inpatient Medical Services/[facility] 09-25-2024 Note Formatting of this n ote might be different from the original. Attending wanting pt to return SNF LOC if possible, PT recommending SNF. [facility] will take pt back SNF LOC. Pt is agreeable to this. Per attending, okay to star auth. No PASR needed as pt is a return to same facility. TCC tasked PT and OT to see for updated notes. TCC will follow for notes to start auth. [facility] 09-25-2024 Note Formatting of this n ote might be different from the original. Attending wanting pt to return SNF LOC if possible, PT recommending SNF. [facility] will take pt back SNF LOC. Pt is agreeable to this. Per attending, okay to star auth. No PASR needed as pt is a return to same facility. TCC tasked PT and OT to see for updated notes. TCC will follow for notes to start auth. [facility] 09-24-2024 Plan of care note Problem: [...] integrity is maintained or improved Outcome: Progressing [facility] 09-24-2024 Note Hospitalist Progress Note Subjective: Admit Date: 09/23/2024 PCP: Ria Longoria MD Room#: U1-299/B1-523 A Chief Complaint Patient presents with Fall Fall and hit head on floor. c/o R hip pain. Baseline Aox3, per EMS Aox1-2. Takes plavix and has been feeling ill lately. Brief Hospital course: Presented after a fall. Pt had a witnessed mechanical fall at [facility], has a bruise on forehead. Pt reports [...] Emergency Contact: Giana Blanca Mobile Relation: Son Shoemaking Cutter needed? No Dennis Davies DO Division of Hospital Medicine Inpatient Medical Services/[facility] 09-24-2024 Note Hospitalist Progress Note Subjective: Admit Date: 09/23/2024 PCP: Ria Longoria MD Room#: E5508/E5509 A Chief Complaint Patient presents with Fall Fall and hit head on floor. c/o R hip pain. Baseline Aox3, per EMS Aox1-2. Takes plavix and has been feeling ill lately. Brief Hospital course: Presented after a fall. Pt had a witnessed mechanical fall at [facility], has a bruise on forehead. Pt reports [...] Emergency Contact: Giana Blanca Mobile Relation: Son Shoemaking Cutter needed? No Dennis Davies DO Division of Hospital Medicine Inpatient Medical Services/[facility] 09-24-2024 Note Formatting of this n ote might be different from the original. Referral placed to [facility] via [facility] per TCC request. Await review and response regarding ability to accept. TCC notified. [facility] 09-24-2024 Note Formatting of this n ote might be different from the original. Referral placed to [facility] via [facility] per TCC request. Await review and response regarding ability to accept. TCC notified. [facility] 09-24-2024 Note Referral placed to [facility] via [facility] per TCC request. Await review and response regarding ability to accept. TCC notified. [facility] 09-24-2024 Note Referral placed to [facility] via [facility] per TCC request. Await review and response regarding ability to accept. TCC notified. [facility] 09-24-2024 Note Formatting of this n ote might be different from the original. TCC completed chart review. 1 blood culture positive and 1 in process, will follow. PO azithromycin and IV rocephin. 3 L of O2-baseline from facility. Wound care consulted. Geriatrics consulted. PT and OT evals pending. Stool studies ordered, GI and c-diff rule out now. Pt is from [facility]. TCC spoke to pt at bedside, she is agreeable to return. TCC spoke to maulik Coats via phone call to update of DC plan. TCC tasked [employer] to make a LTC return referral. TCC will follow for facility response. [facility] 09-24-2024 Note Formatting of this n ote might be different from the original. TCC completed chart review. 1 blood culture positive and 1 in process, will follow. PO azithromycin and IV rocephin. 3 L of O2-baseline from facility. Wound care consulted. Geriatrics consulted. PT and OT evals pending. Stool studies ordered, GI and c-diff rule out now. Pt is from [facility]. TCC spoke to pt at bedside, she is agreeable to return. TCC spoke to maulik Coats via phone call to update of DC plan. TCC tasked EXCHANGE TROUBLE SHOOTER to make a LTC return referral. TCC will follow for facility response. [facility] 09-24-2024 Note PHYSICAL THERAPY [facility] Initial Evaluation Name/MRN: Andre Blanca ([id number]) Evaluation Date: 09/24/2024 Date of : 1950 Admission Date: 09/23/2024 10:34 AM Age: 74 y.o. Room/Bed: E5-508/E5-508 A Discharge Recommendation: Senior Care Facility Equipment Needed: No Assessment IMPRESSION: 74 y/o female admitted to [facility] 09/23/2024 s/p fall at ECF. Pt reports [...] Rec SNF level therapies upon return to [facility] due to significatn decline from baseline level [...] to complete due to dyspnea Outcome Measures -[facility] How much HELP from another person do [...] climbing assessed?: No (no stairs at ECF) AM-[facility] Inpatient Mobility Raw Score (No Stairs) : 15 [facility]-HLM -HL Score: Walked 25 ft or more (i.e. [...] to return to (more content not included)... [facility] 09-24-2024 Note PHYSICAL THERAPY [facility] Initial Evaluation Name/MRN: Andre Blanca ([id number]) Evaluation Date: 09/24/2024 Date of : 1950 Admission Date: 09/23/2024 10:34 AM Age: 74 y.o. Room/Bed: E5508/E5508 A Discharge Recommendation: Senior Care Facility Equipment Needed: No Assessment IMPRESSION: 74 y/o female admitted to [facility] 09/23/2024 s/p fall at ECF. Pt reports [...] to complete due to dyspnea Outcome Measures -[facility] How much HELP from another person do [...] climbing assessed?: No (no stairs at ECF) [facility] Inpatient Mobility Raw Score (No Stairs) : 15 [facility] -[facility] Score: Walked 25 ft or more [...] to return to (more content not included)... [facility] 09-24-2024 Consult note Associated Order (s): IP CONSULT TO GERIATRICS [facility] Geriatric Medicine Inpatient Consult Service Admission Date:09/23/2024 [...] followed by in house psych team at [facility] - see medication recommendations as below, significant polypharmacy- on several psych medications - recommend consultation to psychiatry for further recommendations to reduce current medication burden as able Hypothyroidism - agree with check of TSH - per facility her [employer] dose of Levothyroxine is 88mcg, currently ordered 75mcg, please adjust dose if appropriate- defer management to primary team Polypharmacy - I personally called and spoke with nurse Boyce at [facility] to review medications- reported to be taking [...] hold at this time, 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 alternative alf- due to anticholinergic effects may further contribute [...] eat much breakfast Spoke with nurseCarli at [facility], [facility] patient with anxiety, medication review as above, patient follows with an in house psych rn Allergies Allergen Reactions Aspirin Butorphanol Hydromorphone Ibuprofen [...] Nightly, Lashon Sullivan MD, 40 mg at 09/23/24 204 pregabalin (Lyrica) capsule 150 mg, 150 mg, Oral, BID, Shweta Carson, VACUUM CLEANER REPAIRER - MAIL HANDLER senna-docusate sodium (Senokot-S) 8.6-50 MG tablet 2 tablet, 2 tablet, Oral, Daily, Lashon Sullivan MD No past medical history on file. No past surgical history on file. Social History Social History Tobacco Use Smoking status: Not on file Smokeless tobacco: Not on file Substance Use Topics Alcohol use: Not on file Social History Social History Narrative Not on file Patient Currently Lives: at [facility] Level of Family Support: son Community Resources: [...] notes from last encounter, lab results, imaging [facility] 09-24-2024 Consult note Associated Order (s): IP CONSULT TO GERIATRICS [facility] Geriatric Medicine Inpatient Consult Service [...] followed by in house psych team at [facility] - see medication recommendations as below, significant polypharmacy- on several psych medications - recommend consultation to psychiatry for further recommendations to reduce current medication burden as able Hypothyroidism - agree with check of TSH - per facility her [employer] dose of Levothyroxine is 88mcg, currently ordered 75mcg, please adjust dose if appropriate- defer management to primary team Polypharmacy - I personally called and spoke with nurse Carli at [facility] to review medications- reported to be taking [...] hold at this time, 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 alternative alf- due to anticholinergic effects may further contribute [...] eat much breakfast Spoke with nurseCarli at [facility], [facility] patient with anxiety, medication review as above, patient follows with an in house psych rn Allergies Allergen Reactions Aspirin Butorphanol Hydromorphone Ibuprofen Oxycodone Prochlorperazine Salicylamide Sulfa Antibiotics Sumatriptan Current Facility-Administered Medications: acetaminophen (Tylenol) tablet 650 mg, 650 mg, Oral, q6h PRN, 650 mg at 09/24/24 0555 OR acetaminophen (Tylenol) suppository 650 mg, 650 mg, Rectal, q6h PRN, Lashon Sullivan MD busPIRone (Buspar) tablet 10 mg, 10 mg, Oral, TID, Shweta Carson, VACUUM CLEANER REPAIRER - MAIL HANDLER carBAMazepine (TEGretol) tablet 200 mg, 200 mg, [...] mg, 150 mg, Oral, BID, Shweta Carson, VACUUM CLEANER REPAIRER - MAIL HANDLER senna-docusate sodium (Senokot-S) 8.6-50 MG tablet 2 tablet, 2 tablet, Oral, Daily, Lashon Sullivan MD No past medical history on file. No past surgical history on file. Social History Social History Tobacco Use Smoking status: Not on file Smokeless tobacco: Not on file Substance Use Topics Alcohol use: Not on file Social History Social History Narrative Not on file Patient Currently Lives: at [facility] Level of Family Support: son Community Resources: [...] lab results, imaging documented in this encounter [facility] 09-24-2024 Nurse Note Wound Care consulted for Pressure Injury Prevention. Pt's Rakan score= 18 on 09/24 Pt's pressure points assessed. Pt's Heels, Buttocks/coccyx, Back, Elbows, Occiput and ears all intact. MASD noted to gluteal cleft. Prevention Measures in place, including: Parks sheet with pillows/wedges, Foam heel protectors (obtained and applied), Heels elevated off bed on pillows, Zinc/Moisture Barrier ointment, Waffle chair cushion (obtained for pt). Skin Care precaution order set in place. Dietitian consult N/A, nutrition subscore of 3. PT/OT consult in place. Will continue to follow pt. Please Voicera for any questions or concerns. Damari Wharton RN [facility] 09-24-2024 Plan of care note Problem: Pain - Adult Goal: Verbalizes/displays adequate comfort level or baseline comfort level Outcome: Progressing Problem: Safety - Adult Goal: Free from fall injury Outcome: Progressing Problem: Knowledge Deficit Goal: Patient/family/caregiver demonstrates understanding of disease process, treatment plan, medications, and discharge instructions Outcome: Progressing [facility] 09-24-2024 Nurse Note Pt's blood work attempted x2 this morning. Pt refusing anymore attempts at this time. [facility] 09-23-2024 Nurse Note Pt took 3 yellow colored rings off. This RN found them on the floor next to her bed. Placed in specimen cup with pt label on pt's bedside table. [facility] 09-23-2024 History and physical note Attending History and Physical Admit Date: 09/23/2024 PCP: Ria Longoria MD CHIEF COMPLAINT: FALL Reason for Admission: History Obtained From: pt and ER physician HISTORY OF PRESENT ILLNESS: IVAN is a 74 y.o. female with past medical history below who presents with chief complaint listed above. Pt had a witnessed mechanical fall at [facility], has a bruise on forehead. Pt reports [...] Restrictions Full code Inpatient consult to Geriatric Medicine--[facility]; fall OT eval and treat PT eval and treat Initiate Oxygen Therapy Protocol Admit to inpatient Initiate observation status Code status: Full Code Please forward a copy of this H&P to the patient's PCP. Thank you. Electronically signed by Lashon Sullivan MD 09/23/2024 2:57 PM [facility] 09-23-2024 Note Attending History an d Physical Admit Date: 09/23/2024 PCP: Ria Longoria MD CHIEF COMPLAINT: FALL Reason for Admission: History Obtained From: pt and ER physician HISTORY OF PRESENT ILLNESS: IVAN is a 74 y.o. female with past medical history below who presents with chief complaint listed above. Pt had a witnessed mechanical fall at [facility], has a bruise on forehead. Pt reports [...] CBC auto differ (more content not included)... [facility] 09-23-2024 Note Attending History an d Physical Admit Date: 09/23/2024 PCP: Ria Longoria MD CHIEF COMPLAINT: FALL Reason for Admission: History Obtained From: pt and ER physician HISTORY OF PRESENT ILLNESS: IVAN is a 74 y.o. female with past medical history below who presents with chief complaint listed above. Pt had a witnessed mechanical fall at [facility], has a bruise on forehead. Pt reports [...] CBC auto differ (more content not included)... [facility] 09-23-2024 History and physical note Attending History and Physical Admit Date: 09/23/2024 PCP: Ria Longoria MD CHIEF COMPLAINT: FALL Reason for Admission: History Obtained From: pt and ER physician HISTORY OF PRESENT ILLNESS: IVAN is a 74 y.o. female with past medical history below who presents with chief complaint listed above. Pt had a witnessed mechanical fall at [facility], has a bruise on forehead. Pt reports [...] Restrictions Full code Inpatient consult to Geriatric Medicine--[facility]; fall OT eval and treat PT eval and treat Initiate Oxygen Therapy Protocol Admit to inpatient Initiate observation status Code status: Full Code Please forward a copy of this H&P to the patient's PCP. Thank you. Electronically signed by Lashon Sullivan MD 09/23/2024 2:57 PM documented in this encounter [facility] 09-23-2024 Emergency department Note Gave report to SHA Butcher [facility] 09-23-2024 Emergency department Note Gave report to [...] Socioeconomic History Marital status: Social Drivers of [facility] Intimate Partner Violence: Not At Risk (09/23/2024) Humiliation, Afraid, Rape, and Kick questionnaire Fear of Current or Ex-Partner: No Emotionally Abused: No Physically Abused: No Sexually Abused: No SCREENINGS Bernice Coma Scale Best Eye Response: Spontaneous Best Verbal Response: Confused Best Motor Response: Follows commands Bernice Coma Scale Score: 14 PHYSICAL EXAM ED [...] Detected (*) Narrative: Methodology: Multiplex PCR The [employer] BCID panel can detect the following organisms: [...] - Normal ETHANOL IN SER/PLAS <10 Narrative: HEALTH AND SAFETY CONSULTANT depression is seen >100 mg/dL. NOTE: This [...] equal to 30 ng/mL Test performed by [employer] Competitive Immunoassay, measuring Total Vitamin D, not [...] Procedure Abnormality Status --------- ------ Legionella and Streptoco...[[id number]] Normal Final result Urine Hold Cup[[id number]] Please view results for these tests on the individual orders. C. DIFFICILE BY PCR WITH REFLEX TO EIA GASTROINTESTINAL PCR PANEL BLOOD TYPE AND SCREEN GEL ABO Grouping O Antibody Screen NEG Rh Type POS BASIC METABOLIC PANEL WITH MG REFLEX Narrative: The following orders were created for panel order Basic Metabolic Panel w/ Mg Reflex. Procedure Abnormality Status --------- ------ Basic metabolic panel[[id number]] Abnormal Final result Please view results for these tests on the individual orders. CONFIRMATORY ABO/RH ABO Grouping O Rh Type POS COMPREHENSIVE METABOLIC PANEL WITH MG REFLEX Narrative: The following orders were created for panel order Comprehensive Metabolic Panel w/ Mg Reflex. Procedure Abnormality Status --------- ------ Comprehensive metabolic ...[[id number]] Abnormal Final result Please view results for [...] 650 mg (650 mg Oral Given 09/24/24 05) Or acetaminophen (Tylenol) suppository 650 mg ( Rectal See Alternative 09/24/24 0555) ondansetron ODT (Zofran-ODT) disintegrating tablet 4 mg (4 mg Oral Given 09/24/24 151) Or ondansetron (Zofran) injection 4 mg ( [...] tablet 600 mg (600 mg Oral Given 09/25/24 0858) levothyroxine (Synthroid, Levoxyl) tablet 75 mcg (75 mcg Oral Given 09/25/24 0952) pravastatin (Pravachol) tablet 40 mg (40 mg Oral Given 09/24/24 2127) pantoprazole (ProtoNix) EC tablet 40 mg [...] sodium chloride 0.9 % 250 mL IVPB (ADD-Julian) (0 mg IntraVENous Stopped 09/23/24 1356) sodium [...] 09/25/2024 5:57 PM EST Emergency Department Encounter [facility] EMERGENCY DEPT Patient: Andre Blanca : 1950 [...] MD 09/23/24 1507 documented in this encounter [facility] 09-23-2024 Physician Emergency department Note EMERGENCY DEPARTMENT [...] Physically Abused: No Sexually Abused: No SCREENINGS Bernice Coma Scale Best Eye Response: Spontaneous Best Verbal Response: Confused Best Motor Response: Follows commands Kelley Coma Scale Score: 14 PHYSICAL EXAM ED Triage Vitals Temp Heart Rate Resp BP 09/23/24 1046 09/23/24 1045 09/23/24 1053 09/23/24 1047 37 C (98.6 F) 68 25 (!) 85/46 SpO2 Temp src Heart Rate Source Patient Position 02/10/25 1045 -- -- -- (!) 88 % [...] Detected (*) Narrative: Methodology: Multiplex PCR The [employer] BCID panel can detect the following organisms: [...] - Normal ETHANOL IN SER/PLAS <10 Narrative: HEALTH AND SAFETY CONSULTANT depression is seen >100 mg/dL. NOTE: This [...] equal to 30 ng/mL Test performed by [employer] Competitive Immunoassay, measuring Total Vitamin D, not [...] Procedure Abnormality Status --------- ------ Legionella and Streptoco...[[id number]] Normal Final result Urine Hold Cup[[id number]] Please view results for these tests on the individual orders. C. DIFFICILE BY PCR WITH REFLEX TO EIA GASTROINTESTINAL PCR PANEL BLOOD TYPE AND SCREEN GEL ABO Grouping O Antibody Screen NEG Rh Type POS BASIC METABOLIC PANEL WITH MG REFLEX Narrative: The following orders were created for panel order Basic Metabolic Panel w/ Mg Reflex. Procedure Abnormality Status --------- ------ Basic metabolic panel[[id number]] Abnormal Final result Please view results for these tests on the individual orders. CONFIRMATORY ABO/RH ABO Grouping O Rh Type POS COMPREHENSIVE METABOLIC PANEL WITH MG REFLEX Narrative: The following orders were created for panel order Comprehensive Metabolic Panel w/ Mg Reflex. Procedure Abnormality Status --------- ------ Comprehensive metabolic ...[[id number]] Abnormal Final result Please view results for [...] 4 mg ( IntraVENous See Alternative 09/24/24 151) polyethylene glycol (PEG) 3350 (Miralax) packet 17 [...] sodium chloride 0.9 % 250 mL IVPB (ADD-Julian) (0 mg IntraVENous Stopped 09/23/24 1356) sodium [...] Edmonds MD at 09/25/2024 5:57 PM EST [facility] 09-23-2024 Physician Emergency department Note Emergency Department Encounter [facility] EMERGENCY DEPT Patient: Andre Blanca : 1950 [...] dictating provider for clarification.) Muna Edmonds MD [facility] Muna Edmonds MD 09/23/24 1507 Muna Edmonds MD 09/23/24 1504 [facility] Work Phone: 06-18-2024 Miscellaneous Notes Ok to have Andre come back to discuss next steps with right hip, will discuss MRI. documented in this encounter [facility] 06-18-2024 Progress note Formatting of t his note might be different from the original. Ok to have Andre come back to discuss next steps with right hip, will discuss MRI. [facility] 09-13-2023 History of Presen t illness Narrative Images from the original note were not included. [facility]IC[facility] [address] [place] [address] Dept: [phone] Dept 09/13/2023 Chief Complaint Patient presents with [...] Medical History: Diagnosis Date Acute kidney failure ([facility]) Acute respiratory failure ([facility]) Acute venous embolism and thrombosis of deep vessels of distal lower extremity, unspecified laterality ([facility]) Aftercare following other joint replacement surgery Bipolar 1 disorder ([facility]) Cerebral artery occlusion Cerebral artery occlusion with cerebral infarction ([facility]) Chest pain COPD (chronic obstructive pulmonary disease) ([facility]) COVID-19 Depression Difficulty walking Displaced fracture of acromial process right shoulder squela DVT (deep venous thrombosis) ([facility]) Dysarthria and anarthria Dysphagia, oropharyngeal phase Fibromyalgia [...] 0 min Stress: Stress Concern Present (07/24/2023) Citizen Of [place] [employer] - Occupational Stress Questionnaire Feeling of Stress : Very much Social Connections: Unknown (07/24/2023) Social Connection and Isolation Panel [NHANES] Frequency of Communication with Friends and Family: Patient declined Frequency of Social Gatherings with Friends and Family: Patient declined Attends [employer] Services: Never Active Member of Clubs or [...] 90, IR 30, ER 40, with pain. [facility] exam: positive. +PF/DF/EHL. SILT distally. DP/PT [...] at 8:35 AM. documented in this encounter [facility] 05-31-2023 History of Presen t illness Narrative [facility] [place] [address] [place] [address] Dept: [phone] Dept 05/31/2023 Chief Complaint Patient presents with [...] 90, IR 30, ER 40, with pain. [facility] exam: positive. +PF/DF/EHL. SILT distally. DP/PT [...] at 1:22 PM. documented in this encounter [facility] 02-08-2023 History of Presen t illness Narrative [facility] [address] [facility] [address] [facility] [address] Dept: [phone] Dept 02/08/2023 Chief Complaint Patient presents with [...] Almas Laureano M.D. Hip and Knee Reconstruction [facility] 02/08/2023 at 1:20 PM. documented in this encounter [facility] 01-16-2023 Telephone encounter Note Spoke with Evelyn with Home care and gave advice per Abiola HAUSER TE response. [facility] 01-16-2023 Miscellaneous Notes Spoke with Evelyn with Home care and gave advice per Abiola HAUSER TE response. On and off throughout the entire and as needed for pain and swelling. Can go 20-30 minutes on, then off, every couple hours. Name of Caller: Glenis Contact Phone Number: [phone] Reason for call: Nurse Glenis asking for directives for Pt's Pyle Polar Ice Cube wrap for Pt's knee. Asking how many times per day it needs to be applied, how long, etc. Please call Glenis to advise. Office Name: Dr Laureano documented in this encounter [facility] 01-16-2023 Telephone encounter Note On and off throughout the entire and as needed for pain and swelling. Can go 20-30 minutes on, then off, every couple hours. [facility] 01-16-2023 Telephone encounter Note Name of Caller: Glenis Contact Phone Number: [phone] Reason for call: Nurse Glenis asking for directives for Pt's Pyle Polar Ice Cube wrap for Pt's knee. Asking how many times per day it needs to be applied, how long, etc. Please call Glenis to advise. Office Name: Dr Laureano [facility] 01-13-2023 History of Presen t illness Narrative [...] note were not included. Hospitalist Progress Note 01/13/2023 [phone]: Please page me ([phone]) for patient care issues. [phone]: Please page [facility] Hospitalist for any issues. Subjective: Admit Date: 01/12/2023 PCP: Kianna Izquierdo Room#: B1163/B1-885 A Interval History: No overnight issues. Denies chest pain, sob, abdominal pain, nausea, vomiting, diarrhea, constipation, fevers, or chills. Adult diet Regular @[id number]@ 24HR INTAKE/OUTPUT: Intake/Output Summary (Last 24 hours) at 01/13/2023 1120 Last data filed at 01/12/2023 1306 Gross per 24 hour Intake 500 ml Output 125 ml Net 375 ml Past Medical History: Past Medical History: Diagnosis Date Acute kidney failure (HCC) Acute respiratory failure (HCC) Acute venous embolism and thrombosis of deep vessels of distal lower extremity, unspecified laterality ([facility]) Aftercare following other joint replacement surgery Bipolar 1 disorder ([facility]) Cerebral artery occlusion Cerebral artery occlusion with cerebral infarction ([facility]) Chest pain COPD (chronic obstructive pulmonary disease) ([facility]) COVID-19 Depression Difficulty walking Displaced fracture of acromial process right shoulder squela DVT (deep venous thrombosis) ([facility]) Dysarthria and anarthria Dysphagia, oropharyngeal phase Fibromyalgia [...] fine. Patient okay for discharge back to F from medicine standpoint. Started on lovenox subcutaneous [...] MD Division of Hospitalist Medicine Inpatient Medical Services/[facility] PAGER: Epic chat Physical Therapy Facility/Department: [facility] Physical Therapy Daily Treatment Note NAME: nAdre Blanca : 1950 Date of Service: 01/13/2023 [...] past medical history of Acute kidney failure ([facility]), Acute respiratory failure ([facility]), Acute venous embolism and thrombosis of deep vessels of distal lower extremity, unspecified laterality ([facility]), Aftercare following other joint replacement surgery, Bipolar 1 disorder ([facility]), Cerebral artery occlusion, Cerebral artery occlusion with cerebral infarction ([facility]), Chest pain, COPD (chronic obstructive pulmonary disease) ([facility]), COVID-19, Depression, Difficulty walking, Displaced fracture of acromial process, DVT (deep venous thrombosis) ([facility]), Dysarthria and anarthria, Dysphagia, oropharyngeal phase, Fibromyalgia, [...] (1 ther act, 1 gait) Seda Bradford PTA Occupational Therapy Facility/Department: [facility] Occupational Therapy Treatment NAME: Andre Blanca : 1950 Date of Service: 01/13/2023 Discharge Recommendations: Senior Care Facility Assessment REQUIRES OT FOLLOW-UP: Yes Performance deficits / Impairments: Decreased ADL status, Decreased functional mobility , Decreased endurance, Decreased balance, Decreased strength Assessment: Pt tolerated session poor, limited heavily by pain. Pt completed supine to partial sit at EOB x4 today with Min A. 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 clerk automobile [employer] EOB and in partial sitting position, pt [...] past medical history of Acute kidney failure ([facility]), Acute respiratory failure ([facility]), Acute venous embolism and thrombosis of deep vessels of distal lower extremity, unspecified laterality ([facility]), Aftercare following other joint replacement surgery, Bipolar 1 disorder ([facility]), Cerebral artery occlusion, Cerebral artery occlusion with cerebral infarction ([facility]), Chest pain, COPD (chronic obstructive pulmonary disease) ([facility]), COVID-19, Depression, Difficulty walking, Displaced fracture of acromial process, DVT (deep venous thrombosis) ([facility]), Dysarthria and anarthria, Dysphagia, oropharyngeal phase, Fibromyalgia, [...] Daily Activity Raw Score: 19 ADL Inpatient [facility] G-Code Modifier: CK Goals Encounter Problems Encounter [...] by: Eleazar Altman MD Physical Therapy Facility/Department: [facility] 1W Physical Therapy Initial Evaluation NAME: [...] past medical history of Acute kidney failure ([facility]), Acute respiratory failure ([facility]), Acute venous embolism and thrombosis of deep vessels of distal lower extremity, unspecified laterality ([facility]), Aftercare following other joint replacement surgery, Bipolar 1 disorder ([facility]), Cerebral artery occlusion, Cerebral artery occlusion with cerebral infarction ([facility]), Chest pain, COPD (chronic obstructive pulmonary disease) ([facility]), COVID-19, Depression, Difficulty walking, Displaced fracture of acromial process, DVT (deep venous thrombosis) ([facility]), Dysarthria and anarthria, Dysphagia, oropharyngeal phase, Fibromyalgia, [...] Device: rollator Transfer Assistance: Needs assistance Active Cat Wagon Operator: No Additional Comments: 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 Objective Observation/Palpation Posture: Fair Observation: sx dressing [...] 1950 Date of Service: 01/12/2023 Discharge Recommendations: [facility] Care Facility Assessment REQUIRES OT FOLLOW-UP: Yes Performance deficits / Impairments: Decreased ADL status, Decreased functional mobility , Decreased endurance, Decreased balance, Decreased strength Assessment: Pt admitted to [facility] on 01/12 for an elective R TKA with Dr. Laureano. Pt is now WBAT with no forced flexion precautions. Prior to admission, pt was a alf resident of [facility]. Pt reports supervision-SBA for mobility and transfers [...] past medical history of Acute kidney failure ([facility]), Acute respiratory failure ([facility]), Acute venous embolism and thrombosis of deep vessels of distal lower extremity, unspecified laterality ([facility]), Aftercare following other joint replacement surgery, Bipolar 1 disorder ([facility]), Cerebral artery occlusion, Cerebral artery occlusion with cerebral infarction ([facility]), Chest pain, COPD (chronic obstructive pulmonary disease) ([facility]), COVID-19, Depression, Difficulty walking, Displaced fracture of acromial process, DVT (deep venous thrombosis) ([facility]), Dysarthria and anarthria, Dysphagia, oropharyngeal phase, Fibromyalgia, [...] Device: rollator Transfer Assistance: Needs assistance Active Cat Wagon Operator: No Additional Comments: Pt is a alf resident at the [facility]. Objective Gross Assessment: Yes AROM: Within functional [...] Jennifer Hernandez OT documented in this encounter [facility] 01-13-2023 Note Formatting of this n ote might be different from the original. Discharge med list and MAR information transmitted to return back to [facility] via [facility] per TCC request. [facility] 01-13-2023 Note Formatting of this n ote might be different from the original. Discharge med list and MAR information transmitted to return back to [facility] via [facility] per TCC request. [facility] 01-13-2023 Miscellaneous Notes Discharge med list and MAR information transmitted to return back to [facility] via [facility] per TCC request. Transportation arranged through [facility] by cot set for 1 pm. Notified RN and TCC of this via [employer] secure chat. SW remains available if any other needs or concerns arise. Sent updated notes to [facility] request. Await review and response regarding ability to accept. TCC notified. S/p R TKA PT rec return to ECF with PT and OT rec SNF. 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 Problem: Neurosensory [...] fall injury Outcome: Progressing Pt is a alf resident at [facility], 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 Response from [facility]: [facility] Alert: YES response from [facility] re: Referral [id number] for patient in [facility] [id number]: Yes, willing to accept patient LTC , she is currently on a bed hold I will get a Skilled Auth for her to return.... but will not delay her return... Referral placed to return back to [facility] per [facility] request. Await review and response regarding ability [...] anesthetic or surgical/operative complications. SPECIMENS: None COMPONENTS: Relay [employer] Attune CR femoral component size 5, tibial component size 7, 5 MS tibial polyethylene insert, 35mm patellar component. INTRAOPERATIVE FINDINGS: Intraoperative findings confirmed the radiographic findings of degenerative arthritis characterized by loss of articular cartilage, subchondral sclerosis and marginal osteophytes in all three compartments of the knee. TISSUE REMOVED OR ALTERED: Periarticular bone removed via standard resection. COMORBIDITIES: Acute kidney failure (HCC) Acute respiratory failure (HCC) Acute venous embolism and thrombosis of deep vessels of distal lower extremity, unspecified laterality (HCC) Aftercare following other joint replacement surgery Bipolar 1 disorder (HCC) Cerebral artery occlusion Cerebral artery occlusion with cerebral infarction (HCC) Chest pain COPD (chronic obstructive pulmonary disease) ([facility]) COVID-19 Depression Difficulty walking Displaced fracture of acromial process right shoulder squela DVT (deep venous thrombosis) ([facility]) Dysarthria and anarthria Dysphagia, oropharyngeal phase Fibromyalgia [...] seen and thoroughly evaluated by a perioperative manager medical affairs preoperatively and was optimized for surgical intervention. [...] the rotation dialed in appropriately by visualizing [place]'s line. Alignment holes drilled. The femoral four-in-one [...] were then assessed for symmetry with gap clerical car checker blocks, in both flexion and extension, [...] the recovery room. documented in this encounter [facility] 01-13-2023 Note Formatting of this n ote might be different from the original. Transportation arranged through [facility] by cot set for 1 pm. Notified RN and TCC of this via [employer] secure chat. SW remains available if any other needs or concerns arise. [facility] 01-13-2023 Note Formatting of this n ote might be different from the original. Transportation arranged through [facility] by cot set for 1 pm. Notified RN and TCC of this via [employer] secure chat. SW remains available if any other needs or concerns arise. [facility] 01-13-2023 Nurse Note Ambit pain pump discontinued per Anesthesia. Exparel block placed per anesthesia for better pain control. Pt tolerated procedure well. [facility] 01-13-2023 Nurse Note Ambit pain pump discontinued per Anesthesia. Exparel block placed per anesthesia for better pain control. Pt tolerated procedure well. POD #1 RTKA Patient resting in bed. She states pain has been intense. She is planning on returning to [facility] when able. She normally ambulates with a rollator at [facility]. Denies any questions at this time. documented in this encounter [facility] 01-13-2023 Nurse Note POD #1 RTKA Patient resting in bed. She states pain has been intense. She is planning on returning to [facility] when able. She normally ambulates with a rollator at facility. Denies any questions at this time. T [facility] 01-13-2023 Note Formatting of this n ote might be different from the original. Sent updated notes to [facility] via [facility] per [facility] request. Await review and response regarding ability to accept. TCC notified. T [facility] 01-13-2023 Note Formatting of this n ote might be different from the original. Sent updated notes to [facility] via [facility] per TCC request. Await review and response regarding ability to accept. TCC notified. T [facility] 01-13-2023 Note Formatting of this n ote might be different from the original. S/p R TKA PT rec return to ECF with PT and OT rec SNF. Pt is alf resident at [facility], can return once medically stable. T [facility] 01-13-2023 Note Formatting of this n ote might be different from the original. S/p R TKA PT rec return to ECF with PT and OT rec SNF. 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 T [facility] 01-13-2023 Plan of care note Problem: Neurosensory [...] Goal: Free from fall injury Outcome: Progressing [facility] 01-12-2023 Consult note Formatting of th is [...] vessels of distal lower extremity, unspecified laterality ([facility]) Aftercare following other joint replacement surgery Bipolar 1 disorder ([facility]) Cerebral artery occlusion Cerebral artery occlusion with cerebral infarction ([facility]) Chest pain COPD (chronic obstructive pulmonary disease) ([facility]) COVID-19 Depression Difficulty walking Displaced fracture of acromial process right shoulder squela DVT (deep venous thrombosis) ([facility]) Dysarthria and anarthria Dysphagia, oropharyngeal phase Fibromyalgia [...] as needed. cholecalciferol (Vitamin D-3) 1.25 MG (28449 UT) capsule Take by mouth. clopidogrel (Plavix) 75 MG tablet Take 75 mg by mouth in the morning. ergocalciferol (Vitamin D-2) 1.25 MG (97394 UT) capsule Take 50,000 Units by mouth [...] signed by @MEMDNR@ on @TDNR@ at @NOWNR@ [facility] 01-12-2023 Consult note Formatting of th is [...] other joint replacement surgery Bipolar 1 disorder ([facility]) Cerebral artery occlusion Cerebral artery occlusion with cerebral infarction ([facility]) Chest pain COPD (chronic obstructive pulmonary disease) ([facility]) COVID-19 Depression Difficulty walking Displaced fracture of acromial process right shoulder squela DVT (deep venous thrombosis) ([facility]) Dysarthria and anarthria Dysphagia, oropharyngeal phase Fibromyalgia [...] as needed. cholecalciferol (Vitamin D-3) 1.25 MG (82503 UT) capsule Take by mouth. clopidogrel (Plavix) 75 MG tablet Take 75 mg by mouth in the morning. ergocalciferol (Vitamin D-2) 1.25 MG (40228 UT) capsule Take 50,000 Units by mouth [...] @TDNR@ at @NOWNR@ documented in this encounter [facility] 01-12-2023 Note Formatting of this n ote is different from the original. Addendum created 01/12/23 1327 by FREDERICK Copeland CRNA Child order released for a procedure order, Clinical Note Signed, Intraprocedure Blocks edited, Orders acknowledged in Narrator, SmartForm saved [facility] 01-12-2023 Miscellaneous Notes Addendum created 01/12/23 1327 by FREDERICK Copeland CRNA Child order released for a procedure order, Clinical Note Signed, Intraprocedure Blocks edited, Orders acknowledged in Narrator, SmartForm saved Patient: Andre Blanca Procedure Summary Date: 01/12/23 Room / Location: [address] Operating Room Anesthesia Start: 1051 Anesthesia [...] has been met. documented in this encounter [facility] 01-12-2023 Anesthesiology procedure note Associated Order(s): Peripheral Block Peripheral Block Time Out: 01/12/2023 1:09 PM Patient location during procedure: post-op Start time: 01/12/2023 1:09 PM End time: 01/12/2023 1:22 PM Reason for block: at surgeon's request and post-op pain management Staffing Performed: GILLIAN Resident/ASSISTANT MANAGER PT: FREDERICK Copeland CRNA Preanesthetic Checklist Completed: patient identified, IV checked, site marked, risks and benefits discussed, surgical consent, monitors and equipment checked, pre-op evaluation and timeout performed Region: Lower Extremities Primary: Adductor Canal Peripheral Block Patient position: supine Prep: ChloraPrep Patient monitoring: heart rate, engine monitor, continuous pulse ox and continuous capnometry [...] during injection and Normal resistance with injectionMedications ejkINGCOiaijz-icblkrbyqzd-lqjtufyv ine (TAP) syringe - Injection 30 mL - 01/12/2023 1:09:00 PM [employer] Phone: 01-12-2023 Surgical operatio n note Associated Order(s): Peripheral Block Peripheral Block Time Out: 01/12/2023 1:09 PM Patient location during procedure: post-op Start time: 01/12/2023 1:09 PM End time: 01/12/2023 1:22 PM Reason for block: at surgeon's request and post-op pain management Staffing Performed: ASSISTANT MANAGER PT Resident/ASSISTANT MANAGER PT: FREDERICK Copeland CRNA Preanesthetic Checklist Completed: patient identified, IV checked, site marked, risks and benefits discussed, surgical consent, monitors and equipment checked, pre-op evaluation and timeout performed Region: Lower Extremities Primary: Adductor Canal Peripheral Block Patient position: supine Prep: ChloraPrep Patient monitoring: heart rate, engine monitor, continuous pulse ox and continuous capnometry [...] during injection and Normal resistance with injectionMedications dupXDRQWqssqo-mnogyhiltkl-zxdhhlsu ine (TAP) syringe - Injection 30 mL - 01/12/2023 1:09:00 PM Patient: Andre Blanca Procedure Summary Date: 01/12/23 Room / Location: [address] Operating Room Anesthesia Start: 1051 Anesthesia [...] Reason for block: primary anesthetic Staffing Performed: ASSISTANT MANAGER PT Resident/ASSISTANT MANAGER PT: FREDERICK Courtney CRNA Preanesthetic Checklist Completed: patient [...] Parathesia Patient: Andre Blanca Procedure Information Date/Time: 01/12/23 1200 Procedure: Right Total Knee Arthroplasty (Right: Knee) Location: [address] Operating Room Surgeons: Almas Laureano MD Relevant Problems Anesthesia (+) H/O TIA (transient ischemic attack) and stroke Endo (+) Hypothyroidism Pulmonary (+) COPD (chronic obstructive pulmonary disease) ([facility]) Past Medical History: Past Medical History: No date: Acute kidney failure ([facility]) No date: Acute respiratory failure ([facility]) No date: Acute venous embolism and thrombosis of deep vessels of distal lower extremity, unspecified laterality ([facility]) No date: Aftercare following other joint replacement surgery No date: Bipolar 1 disorder ([facility]) No date: Cerebral artery occlusion No date: Cerebral artery occlusion with cerebral infarction ([facility]) No date: Chest pain No date: COPD (chronic obstructive pulmonary disease) ([facility]) No date: COVID-19 No date: Depression No date: Difficulty walking No date: Displaced fracture of acromial process Comment: right shoulder squela No date: DVT (deep venous thrombosis) ([facility]) No date: Dysarthria and anarthria No date: [...] No significant changes documented in this encounter [facility] 01-12-2023 Note Formatting of this n ote is different from the original. Patient: Andre Blanca Procedure Summary Date: 01/12/23 Room / Location: [address] Operating Room Anesthesia Start: 1051 Anesthesia [...] once all PACU criteria has been met. [facility] 01-12-2023 Anesthesiology Postoperative evaluation and management note Patient: Andre Blanca Procedure Summary Date: 01/12/23 Room / Location: [address] Operating Room Anesthesia Start: 1051 Anesthesia Stop: 1307 Procedure: Right Total Knee Arthroplasty (Right: Knee) Diagnosis: Unilateral primary osteoarthritis, right knee (Unilateral primary osteoarthritis, right knee [M17.11]) Surgeons: Almas Luareano MD Responsible Provider: FREDERICK Courtney CRNA Anesthesia [...] opportunity for questions and acknowledgement of understanding. [facility] 01-12-2023 Procedure anesthe oly Narrative Procedure Name [...] (Carbocaine) 2 % injectio n 60 mg oiiODKXMyavom-xkrejsaqzoz-wnurvkxzvgn (T AP) syringe 30 mL lactated Ringer's [...] Paula Armstrong RN documented in this encounter [id number] Note* Care Coordination - Nikole Peralta RN - 01/12/2023 11:41 AM EDT Pt is a alf resident at [facility], 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 Response from facility: [facility] Alert: YES response from [facility] re: Referral [id number] for patient in [place] [address]: Yes, willing to accept patient LTC , she is currently on a bed hold I will get a Skilled Auth for her to return.... but will not delay her return... 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 Response from facility: [facility] Alert: YES response from [facility] re: Referral [id number] for patient in [place] [address]: Yes, willing to accept patient LTC , she is currently on a bed hold I will get a Skilled Auth for her to return.... but will not delay her return... [facility] [id number] Note* Care Coordination - Rivera Vo - 01/12/2023 11:24 AM EDT Referral placed to return back to [facility] request. Await review and response regarding ability to accept. TCC notified. [facility] [id number] Note* Care Coordination - Rivera Vo - 01/12/2023 11:24 AM EDT Referral placed to return back to [facility] via [facility] per TCC request. Await review and response regarding ability to accept. TCC notified. [facility] [id number] Anesthesiology procedure note* Anesthesia Procedure Notes - FREDERICK Courtney CRNA - 01/12/2023 10:52 AM EDTAssociated Order(s): Spinal Block Spinal Block Time Out: 01/12/2023 10:54 AM Patient location during procedure: OR Start time: 01/12/2023 10:55 AM End time: 01/12/2023 11:02 AM Reason for block: primary anesthetic Staffing Performed: ASSISTANT MANAGER PT Resident/ASSISTANT MANAGER PT: FREDERICK Courtney CRNA Preanesthetic Checklist Completed: patient [...] Free flow CSF. No Heme. No Parathesia [id number] Note* Op Note - Almas Laureano MD [...] via standard resection. COMORBIDITIES: Acute kidney failure (HCC) Acute respiratory failure (HCC) Acute venous embolism and thrombosis of deep vessels of distal lower extremity, unspecified laterality ([facility]) Aftercare following other joint replacement surgery Bipolar 1 disorder ([facility]) Cerebral artery occlusion Cerebral artery occlusion with cerebral infarction ([facility]) Chest pain COPD (chronic obstructive pulmonary disease) ([facility]) COVID-19 Depression Difficulty walking Displaced fracture of acromial process right shoulder squela DVT (deep venous thrombosis) ([facility]) Dysarthria and anarthria Dysphagia, oropharyngeal phase Fibromyalgia [...] seen and thoroughly evaluated by a perioperative manager medical affairs preoperatively and was optimized for surgical intervention. [...] the rotation dialed in appropriately by visualizing [place]'s line. Alignment holes drilled. The femoral four-in-one [...] were then assessed for symmetry with gap clerical car checker blocks, in both flexion and extension, [...] patient was transferred to the recovery room. [facility] [id number] Note* Op Note - Almas Laureano MD [...] anesthetic or surgical/operative complications. SPECIMENS: None COMPONENTS: [employer] Attune CR femoral component size 5, tibial component size 7, 5 MS tibial polyethylene insert, 35mm patellar component. INTRAOPERATIVE FINDINGS: Intraoperative findings confirmed the radiographic findings of degenerative arthritis characterized by loss of articular cartilage, subchondral sclerosis and marginal osteophytes in all three compartments of the knee. TISSUE REMOVED OR ALTERED: Periarticular bone removed via standard resection. COMORBIDITIES: Acute kidney failure (HCC) Acute respiratory failure (HCC) Acute venous embolism and thrombosis of deep vessels of distal lower extremity, unspecified laterality ([facility]) Aftercare following other joint replacement surgery Bipolar 1 disorder ([facility]) Cerebral artery occlusion Cerebral artery occlusion with cerebral infarction ([facility]) Chest pain COPD (chronic obstructive pulmonary disease) ([facility]) COVID-19 Depression Difficulty walking Displaced fracture of acromial process right shoulder squela DVT (deep venous thrombosis) ([facility]) Dysarthria and anarthria Dysphagia, oropharyngeal phase Fibromyalgia [...] seen and thoroughly evaluated by a perioperative manager medical affairs preoperatively and was optimized for surgical intervention. [...] the rotation dialed in appropriately by visualizing [employer]'s line. Alignment holes drilled. The femoral four-in-one [...] were then assessed for symmetry with gap clerical car checker blocks, in both flexion and extension, [...] patient was transferred to the recovery room. [facility] [id number] Anesthesiology Preoperative evaluation and management note* Anesthesia Preprocedure Evaluation - Michel Zambrano MD - 01/12/2023 9:58 AM EDT Patient: Andre Blanca Procedure Information Date/Time: 01/12/23 1200 Procedure: Right Total Knee Arthroplasty (Right: Knee) Location: [address] Operating Room Surgeons: Almas Laureano MD Relevant Problems Anesthesia (+) H/O TIA (transient ischemic attack) and stroke Endo (+) Hypothyroidism Pulmonary (+) COPD (chronic obstructive pulmonary disease) ([facility]) Past Medical History: Past Medical History: No date: Acute kidney failure ([facility]) No date: Acute respiratory failure ([facility]) No date: Acute venous embolism and thrombosis of deep vessels of distal lower extremity, unspecified laterality ([facility]) No date: Aftercare following other joint replacement surgery No date: Bipolar 1 disorder ([facility]) No date: Cerebral artery occlusion No date: Cerebral artery occlusion with cerebral infarction ([facility]) No date: Chest pain No date: COPD (chronic obstructive pulmonary disease) ([facility]) No date: COVID-19 No date: Depression No date: Difficulty walking No date: Displaced fracture of acromial process Comment: right shoulder squela No date: DVT (deep venous thrombosis) ([facility]) No date: Dysarthria and anarthria No date: [...] to ECG 07/07/2022 00:16:44 No significant changes [employer] Work Phone: 1(442) 753-715006-01-2023 History and physical note* Almas Laureano MD [...] Medical History: Diagnosis Date Acute kidney failure ([facility]) Acute respiratory failure ([facility]) Acute venous embolism and thrombosis of deep vessels of distal lower extremity, unspecified laterality ([facility]) Aftercare following other joint replacement surgery Bipolar 1 disorder ([facility]) Cerebral artery occlusion Cerebral artery occlusion with cerebral infarction ([facility]) Chest pain COPD (chronic obstructive pulmonary disease) ([facility]) COVID-19 Depression Difficulty walking Displaced fracture of acromial process right shoulder squela DVT (deep venous thrombosis) ([facility]) Dysarthria and anarthria Dysphagia, oropharyngeal phase Fibromyalgia [...] Diagnosis: Right knee osteoarthritis Plan Right TKA [employer] Work Phone: 1(458) 905-390706-01-2023 History and physical note* Almas Laureano MD [...] occlusion Cerebral artery occlusion with cerebral infarction ([facility]) Chest pain COPD (chronic obstructive pulmonary disease) ([facility]) COVID-19 Depression Difficulty walking Displaced fracture of acromial process right shoulder squela DVT (deep venous thrombosis) ([facility]) Dysarthria and anarthria Dysphagia, oropharyngeal phase Fibromyalgia [...] osteoarthritis Plan Right TKA documented in this [facility]30-2023 Hospital Discharge instructions* Discharge Instructions* Abiola Connolly PA-C - 01/10/2023 10:33 AM EDT Images from the original note were not included. [address] [address] Dept: [phone] Dr. Almas Laureano Adult Hip and Knee Reconstruction [phone] Total/Partial Knee Discharge Instruction Physical Therapy Physical [...] is made of hard metal and plastic. [place] will create a slight separation of the [...] are taking narcotic pain medicine such as [place], Percocet, Hydrocodone, Oxycodone. Question: How long will [...] Near syncope COPD (chronic obstructive pulmonary disease) (HCC) H/O TIA (transient ischemic attack) and stroke [...] Minimal assistance Toileting Minimal assistance Feeding Independent Dietary Assistant Independent Med Delivery yes Wound Care Documentation and Therapy: Wound/Incision 01/12/23 Incision Knee Anterior;Right (Active) Site Assessment Clean;Dry;Intact;Swelling 01/13/23 0330 Odor None 01/13/23 0015 Drainage Amount None 01/13/23 0330 Treatments Ice applied 01/13/23 0330 Primary Dressing Sterile dressing;Transparent film 01/13/23329 Dressing Status Clean, dry & intact 01/13/23 033 Number of days: 1 Elimination: Continence: Bowel: [...] Score: @READMISSIONRISKDETAILS@ Discharging to Facility/ Agency Name: [facility] Address: [address] [place] [address] Hours: Open 24 hours Dialysis Facility (if applicable) Name: Address: Dialysis Schedule: Phone: Fax: [facility] Professional signature: ICIAN SECTION Prognosis: good Condition at Discharge: stable Rehab Potential (if transferring to Rehab): good Recommended Labs or Other Treatments After Discharge: none Physician Certification: I certify the above information and transfer of Andre Blanca is necessary for the continuing treatment of the diagnosis listed and that she requires usp facility for less than 30 days. Update Admission H&P: No change in H&P PHYSICIAN SIGNATURE: documented in this encounterSUniversity Hospitals TriPoint Medical [id number] Telephone encounter Note* Telephone Encounter - Kwesi Sharpe MA - 08/16/2022 3:46 PM EST Contact for [place] [place]: [facility]hazio06[facility]-4412 Miscellaneous Notes* Telephone Encounter - Kwesi Sharpe MA - 08/16/2022 3:46 PM EST Contact for [place] [facility] [place]: * Telephone Encounter - Agatha Stone MA - 07/14/2022 10:05 AM EST OK per Dr. Jacobsen. Keep 07/19/ appt * Telephone Encounter - Agatha Stone MA - 07/12/2022 3:20 PM EST Called and spoke to Giana. He states he will be out of town that week. He is asking if a family friend Terri who is also director of the nursing facility could come with her? He is agreeable to Terir helping to make medical decisions for his mother. * Telephone Encounter - Jigna Lechuga - 07/12/2022 10:59 AM EST Please call patient's son and POA Giana back when you get a moment. He is wondering why he has to be present for upcoming appointment. [phone] * Telephone Encounter - Agtaha Stone MA - 07/12/2022 10:03 AM EST [...] 07/12/2022 9:34 AM EST Puma at the [facility] called in requesting an appointment. I offered [...] will call back. Please call her at [phone]. Appointment not scheduled as I was unsure where to add her on today documented in this encounterSUniversity Hospitals TriPoint Medical [id number] Telephone encounter Note* Telephone Encounter - Agatha Stone MA - 07/14/2022 10:05 AM EST OK per Dr. Jacobsen. Keep 07/19/ appt [facility] CenterBzrocy01-28-1308 Telephone encounter Note* Telephone Encounter - Agatha Stone MA - 07/12/2022 3:20 PM EST Called and spoke to Giana. He states he will be out of town that week. He is asking if a family friend Terri who is also director of the nursing facility could come with her? He is agreeable to Terri helping to make medical decisions for his mother. [place] [id number] Telephone encounter Note* Telephone Encounter - Jigna Lechuga - 07/12/2022 10:59 AM EST Please call patient's son and ABHIJEET Coats back when you get a moment. He is wondering why he has to be present for upcoming appointment. [phone] [place] [id number] Telephone encounter Note* Telephone Encounter - Agatha Stone MA - 07/12/2022 10:03 AM EST Spoke to Puma. Made appt for 07/19 Stressed the importance of needing a family member present at this appointment. Staff member is notsufficient. [address] [id number] Telephone encounter Note* Telephone Encounter - Agatha Stone MA - 07/12/2022 9:48 AM EST She needs an appointment with [facility]. A family member has to be present at this appointment [place] [id number] Telephone encounter Note* Telephone Encounter - Chioma Flanagan MA - 07/12/2022 9:34 AM EST Puma at the [facility] called in requesting an appointment. I offered [...] will call back. Please call her at [phone]. Appointment not scheduled as I was unsure where to add her on today [facility] History of Present illness Narrative* Gerardo Last RN - 06/05/2022 6:31 PM EDT Pt discharged to facility via ambulance. ROSALIO completed, IV removed. * Radha Moon APRN - ML - 06/05/2022 6:03 AM EDT Images from [...] Units Oral Weekly Shweta Carson APRN - MAIL HANDLER 50,000 Units at 06/03/22 1053 enoxaparin Sodium (LOVENOX) injection 30 mg 30 mg SubCUTAneous BID Earl Richardson PA-C 30 mg at 06/04/222119 [Held by provider] methocarbamol (ROBAXIN) tablet 500 mg 500 mg Oral TID Earl Richardson PA-C 500 mgat 06/02/22 1338 carBAMazepine (TEGRETOL) tablet 200 mg 200 mg Oral TID Earl Richardson PA-C 200 mg at 06/04/22 2119 venlafaxine (EFFEXOR XR) extended release capsule 37.5 mg 37.5 mg Oral Daily Earl Richardson PA-C 37.5 mg at 06/04/22 1037 albuterol (PROVENTIL) nebulizer solution 1.25 mg 1.25 mg Nebulization Q6H PRN Earl Richardson PA-C 1.25 mg at 06/02/22 220 naloxone (NARCAN) injection 0.4 mg 0.4 mg [...] day Earl Richardson PA-C 1,000 mg at 06/05/22 0519 senna (SENOKOT) tablet 8.6 mg 1 tablet Oral Daily PRN Earl Richardson PA-C bisacodyl (DULCOLAX) EC tablet 5 mg 5 mg Oral Daily Earl Richardson PA-C 5 mg at 06/04/222119 busPIRone (BUSPAR) tablet 10 mg 10 mg Oral TID ENEIDA LyleC 10 mg at 06/04/222118 fludrocortisone (FLORINEF) tablet 0.1 mg 0.1 mg Oral Daily Earl Dylan, PA-C 0.1 mg at 06/03/22757 levothyroxine (SYNTHROID) tablet 150 mcg 150 mcg Oral Daily Earl Dylan, PA-C 150 mcg at melatonin tablet 5 mg 5 mg Oral Daily Earl Dylan, PA-C 5 mg at 06/04/222118 midodrine (PROAMATINE) tablet 5 mg 5 mg Oral TID Earl Dylan, PA-C 5 mg at 06/04/222121 pantoprazole (PROTONIX) tablet 40 mg 40 mg Oral BID Earl Dylan, PA-C 40 mg at 06/04/222118 pravastatin (PRAVACHOL) tablet 40 mg 40 mg Oral Daily Earl Dylan, PA-C 40 mg at 06/04/22958 pregabalin (LYRICA) capsule 150 mg 150 mg Oral BID Earl Dylan, PA-C 150 mg at 06/04/222119 risperiDONE (RISPERDAL) tablet 0.5 mg 0.5 mg Oral BID Earl Dylan, PA-C 0.5 mg at 06/04/222120 traZODone (DESYREL) tablet 50 mg 50 mg Oral Nightly Earl Dylan, PA-C 50 mg at 06/04/222118 ARE THERE [...] Diagnostic Radiology ACCESSION EXAMDATE/TIME PROCEDURE ORDERING PROVIDER [id number] 05/30/2022 10:17 EDT CR Elbow 3+ Views Left [id number] -MARGARET CUEVAS CPT code 18713 Reason For Exam (CR Elbow 3+ Views [...] Diagnostic Radiology ACCESSION EXAMDATE/TIME PROCEDURE ORDERING PROVIDER [id number] 05/30/2022 10:17 EDT CR Femur 2+ Views Left n [id number] -MARGARET CUEVAS CPT code 06290 Reason For Exam (CR Femur 2+ Views [...] Tomography ACCESSION EXAM DATE/TIME PROCEDURE ORDERING PROVIDER [id number] 05/30/2022 16:[address] Head or Brain w/o [id number]-PHPSBPRADHA MOON Contrast CPT code 31039 Reason For Exam (CT Head or Brain [...] Tomography ACCESSION EXAM DATE/TIME PROCEDURE ORDERING PROVIDER [id number] 05/30/2022 09:[address] Head or Brain w/o [id number]-DJAXEREMM, LAURA Contrast CPT code 38763 Reason For Exam (CT Head or Brain [...] Tomography ACCESSION EXAM DATE/TIME PROCEDURE ORDERING PROVIDER [id number] 05/30/2022 09:[address] Spine Cervical w/o 602207 -ELICEO CAYLA Contrast CPT code 31287 Reason For Exam (CT Spine Cervical w/o [...] acute process. Report Dictated on Worksta tion: [id number] --- Final --- Dictated: 05/30/2022 10:58 am Dictating Physician: DO MCGUIRE ALFRED Signed Date and Time: 05/30/2022 11:00 am Signed by: DO MCGUIRE ALFRED Transcribed Date and Time: 05/30/2022 10:58 XR Tibia Fibula Bilateral Result Date: 05/30/2022 Patient Name: ANDRE BLANCA Diagnostic Radiology ACCESSION EXAMDATE/TIME PROCEDURE ORDERING PROVIDER [id number] 05/30/2022 19:27 EDT CR Tibia/Fibula 2 Views MD RUTH BLAKE Bilateral CPT code 33704 Reason For Exam (CR Tibia/Fibula 2 Views [...] Diagnostic Radiology ACCESSION EXAMDATE/TIME PROCEDURE ORDERING PROVIDER [id number] 05/30/2022 10:36 EDT CR Chest Portable [id number] -LALIT PICHARDO CPT code 79866 Reason For Exam (CR Chest Portable) fall, [...] Diagnostic Radiology ACCESSION EXAMDATE/TIME PROCEDURE ORDERING PROVIDER [id number] 05/30/2022 10:17 EDT CR Shoulder 2+ Views [id number] -MARGARET CUEVAS Left CPT code 17745 Reason For Exam (CR Shoulder 2+ Views [...] Diagnostic Radiology ACCESSION EXAMDATE/TIME PROCEDURE ORDERING PROVIDER [id number] 05/30/2022 10:36 EDT CR Pelvis 1 or 2 Views [id number] LYLE CPT code 78835 Reason For Exam (CR Pelvis 1 or [...] Hypoxia 06/05/2022 Yes I personally supervised the VACUUM CLEANER REPAIRER/PA-C in the evaluation and development of a [...] olecranon. Doing well. [facility]. Greater than 51% of the >= 25 minute total care time throughout the day (including chart review,care coordination, and xkff-ph-wtyf encounter) was spent discussing/counseling the patient/family regarding the care plan for Andre Blanca. I examined the patient independently and reviewed relevant data myself and may have done so in the context of team rounds. A full chart review was performed. Cayla Madrigal MD Division of Trauma Department of Surgery [facility] Pager: [phone] * Rand Olivarez, PT - 06/04/2022 12:33 PM EDT Physical Therapy Facility/Department: [facility] Physical Therapy Initial Assessment Name: Andre Blanca : 1950 Date of Service: 06/04/2022 Discharge Recommendations: Subacute/Senior Care Facility PT Equipment Recommendations Equipment Needed: (TBD) Patient Diagnosis(es): The primary encounter diagnosis was Closed displaced fracture of left femoral neck (HCC). Diagnoses of Syncope and collapse, Acute pain of left shoulder, and Left hip pain werealso pertinent to this visit. Past Medical History: has a past medical history of Bipolar 1 disorder ([facility]), Cerebral artery occlusion, COPD (chronic obstructive pulmonary [...] cognition Assessment: 71 y.o. female admitted to [facility] for fall, closed fracture of femur and [...] Ambulation Assistance: Independent Transfer Assistance: Independent Active Cat Wagon Operator: No Additional Comments: pt questionable historian Vision/Hearing [...] - Static: -;Fair Standing - Dynamic: Fair;- AM-PAC Score AM-PAC Inpatient Mobility Raw Score : 8 (06/04/221232) AM-PAC Inpatient T-Scale Score : 28.52 (06/04/221232) Mobility Inpatient CMS 0-100% Score: 86.62 (06/04/221232) Mobility Inpatient CMS G-Code Modifier : CM (06/04/221232) Goals Short [...] Time Individual Concurrent Group Co-treatment Time In 0910 Time Out 0933 Minutes 23 Timed Code Treatment Minutes: (Mod eval, 1 FA) This therapist was wearing an appropriate mask, goggles, and gloves for entire patient encounter. Rand Olivarez PT * Radha Moon APRN - ML - 06/04/2022 6:27 AM EDT Images from [...] Units Oral Weekly Shweta Carson APRN - MAIL HANDLER 50,000 Units at 06/03/22 1053 enoxaparin Sodium [...] 0.9 % sodium chloride infusion IntraVENous PRN ENEIDA LyleC ondansetron (ZOFRAN-ODT) disintegrating tablet 4 mg 4 mg Oral Q8H PRN CARLOS Lyle-C Or ondansetron (ZOFRAN) injection 4 mg 4 mg IntraVENous Q6H PRN CARLOS Lyle-C 4 mg at 06/03/22 1812 polyethylene glycol (GLYCOLAX) packet 17 g 17 g Oral Daily CARLOS Lyle-C 17 g at 06/03/22 0754 acetaminophen (TYLENOL) tablet 1,000 mg 1,000 mg Oral 3 times per day CARLOS Lyle-C 1,000 mg at 06/04/22 0608 senna (SENOKOT) tablet 8.6 mg 1 tablet Oral Daily PRN ENEIDA LyleC bisacodyl (DULCOLAX) EC tablet 5 mg 5 mg Oral Daily CARLOS Lyle-C 5 mg at 06/03/222006 busPIRone (BUSPAR) tablet 10 mg 10 mg Oral TID CARLOS Lyle-C 10 mg at 06/03/222005 fludrocortisone (FLORINEF) tablet 0.1 mg 0.1 mg Oral Daily Earl Richardson PA-C 0.1 mg at 06/03/22 0758 levothyroxine (SYNTHROID) tablet 150 mcg 150 mcg Oral Daily CARLOS Lyle-C 150 mcg at 608 melatonin tablet 5 mg 5 mg Oral Daily Earl Richardson PA-C 5 mg at 06/03/222005 midodrine (PROAMATINE) tablet 5 mg 5 mg Oral TID Earl Richardson PA-C 5 mg at 06/03/222006 pantoprazole (PROTONIX) tablet 40 mg 40 mg Oral BID Earl Richardson PA-C 40 mg at 06/03/222006 pravastatin (PRAVACHOL) tablet 40 mg 40 mg Oral Daily Earl Richardson PA-C 40 mg at 06/03/22 0755 pregabalin (LYRICA) capsule 150 mg 150 mg Oral BID CARLOS Lyle-C 150 mg at 06/03/222006 risperiDONE (RISPERDAL) tablet 0.5 mg 0.5 mg Oral BID Earl Richardson PA-C 0.5 mg at 06/03/222006 traZODone (DESYREL) tablet 50 mg 50 mg Oral Nightly Earl Richardson PA-C 50 mg at 06/03/222006 ARE THERE [...] Diagnostic Radiology ACCESSION EXAMDATE/TIME PROCEDURE ORDERING PROVIDER [id number] 05/30/2022 10:17 EDT CR Elbow 3+ Views Left [id number] MARGARET ASHRAF CPT code 72146 Reason For Exam (CR Elbow 3+ Views [...] Diagnostic Radiology ACCESSION EXAMDATE/TIME PROCEDURE ORDERING PROVIDER [id number] 05/30/2022 10:17 EDT CR Femur 2+ Views Left n [id number] MARGARET ASHRAF CPT code 21620 Reason For Exam (CR Femur 2+ Views [...] Tomography ACCESSION EXAM DATE/TIME PROCEDURE ORDERING PROVIDER [id number] 05/30/2022 16:[address] Head or Brain w/o [id number]-BXCHZSRADHA MOON Contrast CPT code 45235 Reason For Exam (CT Head or Brain [...] Tomography ACCESSION EXAM DATE/TIME PROCEDURE ORDERING PROVIDER [id number] 05/30/2022 09:[address] Head or Brain w/o 192594-QHPOHWHUN, CAYLA Contrast CPT code 56153 Reason For Exam (CT Head or Brain [...] Result Date: 05/30/2022 [id number] Computed Tomography ACCESSION EXAM DATE/TIME PROCEDURE ORDERING PROVIDER [id number] 05/30/2022 09:[address] Spine Cervical w/o 055969 -CAYLA MADRIGAL Contrast CPT code 52536 Reason For Exam (CT Spine Cervical w/o [...] acute process. Report Dictated on Worksta tion: [id number] --- Final --- Dictated: 05/30/2022 10:58 am Dictating Physician: DO MCGUIRE ALFRED Signed Date and Time: 05/30/2022 11:00 am Signed by: DO MCGUIRE ALFRED Transcribed Date and Time: 05/30/2022 10:58 XR Tibia Fibula Bilateral Result Date: 05/30/2022 [id number] Diagnostic Radiology ACCESSION EXAMDATE/TIME PROCEDURE ORDERING PROVIDER [id number] 05/30/2022 19:27 EDT CR Tibia/Fibula 2 Views MD FARAZ, ERLINDA Bilateral CPT code 96050 Reason For Exam (CR Tibia/Fibula 2 Views [...] Result Date: 05/30/2022 [id number] Diagnostic Radiology ACCESSION EXAMDATE/TIME PROCEDURE ORDERING PROVIDER [id number] 05/30/2022 10:36 EDT CR Chest Portable Cynthia HINTONMALATHILALIT LEON CPT code 56082 Reason For Exam (CR Chest Portable) fall, [...] Diagnostic Radiology ACCESSION EXAMDATE/TIME PROCEDURE ORDERING PROVIDER [id number] 05/30/2022 10:17 EDT CR Shoulder 2+ Views [id number] -MARGARET CUEVAS Left CPT code 66783 Reason For Exam (CR Shoulder 2+ Views [...] Diagnostic Radiology ACCESSION EXAMDATE/TIME PROCEDURE ORDERING PROVIDER [id number] 05/30/2022 10:36 EDT CR Pelvis 1 or 2 Views [id number] -LALIT PICHARDO CPT code 68318 Reason For Exam (CR Pelvis 1 or [...] deficiency 06/02/2022 Yes I personally supervised the VACUUM CLEANER REPAIRER/ANALISA in the evaluation and development of a [...] PT/OT recommending SNF, anticipate discharge back to [facility] once accepted. Greater than 51% of the >= 25 minute total care time throughout the day (including chart review,care coordination, and qidm-sl-tqoy encounter) was spent discussing/counseling the patient/family regarding the care plan for Andre Blanca. I examined the patient independently and reviewed relevant data myself and may have done so in the context of team rounds. A full chart review was performed. Cayla Madrigal MD Division of Trauma Department of Surgery [facility] Pager: [phone] * Earl Richardson PA-C - 06/03/2022 1:25 [...] weeks -d/c instructions in chart -Please page alterations sewer ortho resident with questions/concerns Spoke to patient [...] Orthopedic Surgery * Shweta Carson APRN - JOSÉ - 06/03/2022 11:31 AM EDT Images from the original note were not included. [facility] Inpatient Consult Service Admission Date: [...] for questions over the weekend please page alterations sewer provider,Dr. Apodaca Subjective: HPI 71 y.o. year-old female presented from facility ([facility]) for fall. Per review of H&P : unwitnessed fall at [facility], patient reportedly blacked out and woke up [...] slightly confused- thinks she is currently in [place]. PT eval pending, OT recommending SNF Review [...] only- states she thinks she is in [place] at time of visit, remains slightly confused [...] notes from last encounter, lab results, imaging * Jeannine Card PA-C - 06/03/2022 6:53 [...] Units Oral Weekly Shweta Carson APRN - MAIL HANDLER enoxaparin Sodium (LOVENOX) injection 30 mg 30 mg SubCUTAneous BID Earl Richardson PA-C 30 mg at 06/02/222049 [Held by provider] methocarbamol (ROBAXIN) tablet 500 mg 500 mg Oral TID ENEIDA LyleC 500 mgat 06/02/22 1338 HYDROmorphone (DILAUDID) injection 0.5 mg 0.5 mg IntraVENous Q3H PRN Earl Richardson PA-C Or HYDROmorphone (DILAUDID) injection 1 mg 1 mg IntraVENous Q3H PRN ENEIDA yLleC 1 mg at 06/02/22 0857 carBAMazepine (TEGRETOL) tablet 200 mg 200 mg Oral TID CARLOS Lyle-C 200 mg at 06/02/222049 venlafaxine (EFFEXOR XR) extended release capsule 37.5 mg 37.5 mg Oral Daily Earl Richardson PA-C 37.5 mg at 06/02/22 0846 albuterol (PROVENTIL) nebulizer solution 1.25 mg 1.25 mg Nebulization Q6H PRN ENEIDA LyleC 1.25 mg at 06/02/22 220 metoclopramide (REGLAN) injection 5 mg 5 mg IntraVENous BID Earl Richardson PA-C 5 mg at 06/02/22 205 naloxone (NARCAN) injection 0.4 mg 0.4 mg IntraVENous PRN Earl Richardson PA-C oxyCODONE (ROXICODONE) immediate release tablet 2.5 mg 2.5 mg Oral Q4H PRN Earl Richardson PA-C Or oxyCODONE (ROXICODONE) immediate release tablet 5 mg 5 mg Oral Q4H PRN Earl Richardson PA-C 5 mg at 06/03/22 0446 sodium chloride flush 0.9 % injection 5-40 mL 5-40 mL IntraVENous 2 times per day ENEIDA LyleC 10 mL at 06/02/222050 sodium chloride flush [...] Daily Earl Richardson PA-C 17 g at 06/02/22 0847 acetaminophen (TYLENOL) tablet 1,000 mg 1,000 mg Oral 3 times per day ENEIDA LyleC 1,000 mg at 06/03/22 0553 senna (SENOKOT) tablet 8.6 mg 1 tablet Oral Daily PRN Earl Richardson PA-C bisacodyl (DULCOLAX) EC tablet 5 mg 5 mg Oral Daily ENEIDA LyleC 5 mg at 06/02/222050 busPIRone (BUSPAR) tablet 10 mg 10 mg Oral TID Earl Richardson PA-C 10 mg at 06/02/222050 fludrocortisone (FLORINEF) tablet 0.1 mg 0.1 mg Oral Daily ENEIDA LyleC 0.1 mg at 06/02/22 0847 levothyroxine (SYNTHROID) tablet 150 mcg 150 mcg Oral Daily ENEIDA LyleC 150 mcg at melatonin tablet 5 mg [...] (37.2 C) Temporal 85 18 95 % 06/02/222 -- -- -- 95 16 98 % [...] Diagnostic Radiology ACCESSION EXAMDATE/TIME PROCEDURE ORDERING PROVIDER [id number] 05/30/2022 10:17 EDT CR Elbow 3+ Views Left [id number] MARGARET CUEVAS CPT code 22603 Reason For Exam (CR Elbow 3+ Views [...] Diagnostic Radiology ACCESSION EXAMDATE/TIME PROCEDURE ORDERING PROVIDER [id number] 05/30/2022 10:17 EDT CR Femur 2+ Views Left n [id number] -MARGARET CUEVAS CPT code 12723 Reason For Exam (CR Femur 2+ Views [...] Tomography ACCESSION EXAM DATE/TIME PROCEDURE ORDERING PROVIDER [id number] 05/30/2022 16:[address] Head or Brain w/o [id number]-DMYNJXRADHA MOON Contrast CPT code 61585 Reason For Exam (CT Head or Brain [...] Result Date: 05/30/2022 [id number] Computed Tomography ACCESSION EXAM DATE/TIME PROCEDURE ORDERING PROVIDER [id number] 05/30/2022 09:[address] Head or Brain w/o [id number], LAURA Contrast CPT code 54079 Reason For Exam (CT Head or Brain [...] Tomography ACCESSION EXAM DATE/TIME PROCEDURE ORDERING PROVIDER [id number] 05/30/2022 09:[address] Spine Cervical w/o 217490 -CAYLA MADRIGAL Contrast CPT code 38419 Reason For Exam (CT Spine Cervical w/o [...] acute process. Report Dictated on Worksta tion: [id number] --- Final --- Dictated: 05/30/2022 10:58 am Dictating Physician: DO MCGUIRE ALFRED Signed Date and Time: 05/30/2022 11:00 am Signed by: DO MCGUIRE ALFRED Transcribed Date and Time: 05/30/2022 10:58 XR Tibia Fibula Bilateral Result Date: 05/30/2022 Patient Name: ANDRE BLANCA Diagnostic Radiology ACCESSION EXAMDATE/TIME PROCEDURE ORDERING PROVIDER [id number] 05/30/2022 19:27 EDT CR Tibia/Fibula 2 Views MD FARAZ, ERLINDA Bilateral CPT code 26165 Reason For Exam (CR Tibia/Fibula 2 Views [...] Diagnostic Radiology ACCESSION EXAMDATE/TIME PROCEDURE ORDERING PROVIDER [id number] 05/30/2022 10:36 EDT CR Chest Portable [id number] -LALIT PICHARDO CPT code 19196 Reason For Exam (CR Chest Portable) fall, [...] Diagnostic Radiology ACCESSION EXAMDATE/TIME PROCEDURE ORDERING PROVIDER [id number] 05/30/2022 10:17 EDT CR Shoulder 2+ Views [id number] -CUEVAS MARAGRET Left CPT code 45081 Reason For Exam (CR Shoulder 2+ Views [...] Result Date: 05/30/2022 [id number] Diagnostic Radiology ACCESSION EXAMDATE/TIME PROCEDURE ORDERING PROVIDER [id number] 05/30/2022 10:36 EDT CR Pelvis 1 or 2 Views [id number] LYLE CPT code 34626 Reason For Exam (CR Pelvis 1 or [...] deficiency 06/02/2022 Yes I personally supervised the VACUUM CLEANER REPAIRER/PA-C in the evaluation and development of a [...] the day (including chart review,care coordination, and jpde-jb-aiir encounter) was spent discussing/counseling the patient/family regarding the care plan for Andre Blanca. I examined the patient independently and reviewed relevant data myself and may have done so in the context of team rounds. A full chart review was performed. Cayla Madrigal MD Division of Trauma Department of Surgery [facility] Pager: [phone] * Familia Esparza MD - 06/03/2022 6:50 [...] with questions * Shweta Carson APRN - MAIL HANDLER - 06/02/2022 3:49 PM EDT Images from the original note were not included. [facility] Inpatient Consult Service Admission Date: [...] 71 y.o. year-old female presented from facility ([facility]) for fall. Per review of H&P : unwitnessed fall at [facility], patient reportedly blacked out and woke up [...] 06/02/2022 10:29 AM EDT Occupational Therapy Facility/Department: [facility] Occupational Therapy Initial Assessment Name: Andre Blanca : 1950 Date of Service: 06/02/2022 Discharge Recommendations: Subacute/Senior Care Facility This provider wore a mask and [...] Independent (with rollator) Transfer Assistance: Independent Active Cat Wagon Operator: No Additional Comments: pt questionable historian Objective [...] RUE AROM : WFL G-Code OutComes Score AM-PAC Daily Activity Inpatient How much help for putting on and taking off regular lower body clothing?: Total How much help for Bathing?: Total How much help for Toileting?: Total How much help for putting on and taking off regular upper body clothing?: A Lot How much help for taking care of personal grooming?: A Little How much help for eating meals?: None AM-PAC Inpatient Daily Activity Raw Score: 12 AM-[facility] Inpatient ADL T-Scale Score : 30.6 ADL [...] Plan of Care supervision is transferred to [facility] Occupational Therapist. Goals and/or treatment plan was [...] Earl Richardson PA-C 200 mg at 06/01/22 204 venlafaxine (EFFEXOR XR) extended release capsule 37.5 mg 37.5 mg Oral Daily Earl Richardson PA-C 37.5 mg at 06/01/22 1504 albuterol (PROVENTIL) nebulizer solution 1.25 mg 1.25 mg Nebulization Q6H PRN Earl Richardson PA-C metoclopramide (REGLAN) injection 5 mg 5 mg IntraVENous BID Earl Richardson PA-C 5 mg at 06/01/22 204 naloxone (NARCAN) injection 0.4 mg 0.4 mg IntraVENous PRN Earl Richardson PA-C oxyCODONE (ROXICODONE) immediate release tablet 2.5 mg 2.5 mg Oral Q4H PRN Earl Richardson PA-C Or oxyCODONE (ROXICODONE) immediate release tablet 5 mg 5 mg Oral Q4H PRN Earl Richardson PA-C 5 mg at 06/02/22 0321 sodium chloride flush 0.9 % injection 5-40 mL 5-40 mL IntraVENous 2 times per day ENEIDA LyleC 10 mL at 06/01/222055 sodium chloride flush 0.9 % injection 5-40 mL 5-40 mL IntraVENous PRN CARLOS Lyle-C 0.9 % sodium chloride infusion IntraVENous PRN ENEIDA LyleC ondansetron (ZOFRAN-ODT) disintegrating tablet 4 mg 4 mg Oral Q8H PRN Earl Richardson PA-C Or ondansetron (ZOFRAN) injection 4 mg 4 mg IntraVENous Q6H PRN CARLOS Lyle-C 4 mg at 05/30/22 1127 polyethylene glycol (GLYCOLAX) packet 17 g 17 g Oral Daily CARLOS Lyle-C 17 g at 06/01/22 1500 acetaminophen (TYLENOL) tablet 1,000 mg 1,000 mg Oral 3 times per day CARLOS Lyle-C 1,000 mg at 06/02/22 0624 senna (SENOKOT) tablet 8.6 mg 1 tablet Oral Daily PRN Earl Richardson PA-C bisacodyl (DULCOLAX) EC tablet 5 mg 5 mg Oral Daily CARLOS Lyle-C 5 mg at 05/30/222108 busPIRone (BUSPAR) tablet 10 mg 10 mg Oral TID CARLOS Lyle-C 10 mg at 06/01/222038 fludrocortisone (FLORINEF) tablet 0.1 mg 0.1 mg Oral Daily CARLOS Lyle-C 0.1 mg at 06/01/22 150 levothyroxine (SYNTHROID) tablet 150 mcg 150 mcg Oral Daily CARLOS Lyle-C 150 mcg at 4 melatonin tablet 5 mg 5 mg Oral Daily CARLOS Lyle-C 5 mg at 06/01/222038 midodrine (PROAMATINE) tablet 5 mg 5 mg Oral TID CARLOS Lyle-C 5 mg at 06/01/222039 pantoprazole (PROTONIX) tablet 40 mg 40 mg Oral BID CARLOS Lyle-C 40 mg at 06/01/222038 pravastatin (PRAVACHOL) tablet 40 mg 40 mg Oral Daily CARLOS Lyle-C 40 mg at 06/01/22 1500 pregabalin (LYRICA) capsule 150 mg 150 mg Oral BID CARLOS Lyle-C 150 mg at 06/01/222039 risperiDONE (RISPERDAL) tablet 0.5 mg 0.5 mg Oral BID Earl Richardson, CARLOS-C 0.5 mg at 06/01/222039 traZODone (DESYREL) tablet 50 mg 50 mg Oral Nightly Earlviviana Richardson, PA-C 50 mg at 06/01/222038 ARE THERE [...] Diagnostic Radiology ACCESSION EXAMDATE/TIME PROCEDURE ORDERING PROVIDER [id number] 05/30/2022 10:17 EDT CR Elbow 3+ Views Left [id number] -MARGARET CUEVAS CPT code 78509 Reason For Exam (CR Elbow 3+ Views [...] Result Date: 05/30/2022 [id number] Radiology ACCESSION EXAMDATE/TIME PROCEDURE ORDERING PROVIDER [id number] 05/30/2022 10:17 EDT CR Femur 2+ Views Left n [id number] -MARGARET CUEVAS CPT code 38175 Reason For Exam (CR Femur 2+ Views [...] Result Date: 05/30/2022 [id number] Computed Tomography ACCESSION EXAM DATE/TIME PROCEDURE ORDERING PROVIDER [id number] 05/30/2022 16:[address] Head or Brain w/o [id number] MOON Contrast CPT code 71819 Reason For Exam (CT Head or Brain [...] Tomography ACCESSION EXAM DATE/TIME PROCEDURE ORDERING PROVIDER [id number] 05/30/2022 09:[address] Head or Brain w/o [id number]-[id number], LAURA Contrast CPT code 58337 Reason For Exam (CT Head or Brain [...] Dictated: 05/30/2022 10:49 am Dictating Physician: DO MCGIURE ALFRED Signed Dateand Time: 05/30/2022 10:56 am Signed by: DO MCGUIRE ALFRED Transcribed Date and Time: 05/30/2022 10:49 CT CERVICAL SPINE WO CONTRAST Result Date: 05/30/2022 Patient Name: ANDRE BLANCA Computed Tomography ACCESSION EXAM DATE/TIME PROCEDURE ORDERING PROVIDER [id number] 05/30/2022 09:[address] Spine Cervical w/o [id number] -CAYLA MADRIGAL Contrast CPT code 40357 Reason For Exam (CT Spine Cervical w/o [...] acute process. Report Dictated on Worksta tion: [id number] --- Final --- Dictated: 05/30/2022 10:58 am Dictating Physician: DO MCGUIRE ALFRED Signed Date and Time: 05/30/2022 11:00 am Signed by: DO MCGUIRE ALFRED Transcribed Date and Time: 05/30/2022 10:58 XR Tibia Fibula Bilateral Result Date: 05/30/2022 Patient Name: ANDRE BLANCA [facility]#: [id number] Diagnostic Radiology ACCESSION EXAMDATE/TIME PROCEDURE ORDERING PROVIDER [id number] 05/30/2022 19:27 EDT CR Tibia/Fibula 2 Views MD FARAZ, ERLINDA Bilateral CPT code 80898 Reason For Exam (CR Tibia/Fibula 2 Views [...] Result Date: 05/30/2022 [id number] Diagnostic Radiology ACCESSION EXAMDATE/TIME PROCEDURE ORDERING PROVIDER [id number] 05/30/2022 10:36 EDT CR Chest Portable [id number] -LALIT PICHARDO CPT code 52802 Reason For Exam (CR Chest Portable) fall, [...] Result Date: 05/30/2022 Patient Name: ANDRE BLANCA [facility]#: [id number] Diagnostic Radiology ACCESSION EXAMDATE/TIME PROCEDURE ORDERING PROVIDER [id number] 05/30/2022 10:17 EDT CR Shoulder 2+ Views [id number] -MARGARET CUEVAS Left CPT code 83587 Reason For Exam (CR Shoulder 2+ Views [...] Diagnostic Radiology ACCESSION EXAMDATE/TIME PROCEDURE ORDERING PROVIDER [id number] 05/30/2022 10:36 EDT CR Pelvis 1 or 2 Views [id number] NarenDAXMALATHICAROLYNLALIT CPT code 51487 Reason For Exam (CR Pelvis 1 or [...] deficiency 06/02/2022 Yes I personally supervised the VACUUM CLEANER REPAIRER/PA-C in the evaluation and development of a [...] the day (including chart review,care coordination, and lhgy-zz-tssc encounter) was spent discussing/counseling the patient/family regarding the care plan for Andre Blanca. I examined the patient independently and reviewed relevant data myself and may have done so in the context of team rounds. A full chart review was performed. 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 Chart reviewed. Patient diet advanced. Monitor tolerance to diet. Patient to be monitored and followed by the diet animal laboratory technician. Dietitian available upon request. TESSIE Smith [...] after surgery. Cecy Rust OTR/L * Shweta Carson APRN - JOSÉ - 06/01/2022 8:50 AM EDT Images from the original note were not included. [facility] Inpatient Consult Service Admission Date: [...] in this older adult - from facility- [facility]- discussed with geriatric pharmacist, Ladan Fosnight- MAR from facility requested for further review, but did have med list. Medication recommendations as below: - Agree with holding dicyclomine as it can further contribute to confusion and falls. Metoclopramide opposes activity of dicyclomine- recommend to decrease dose to 5mg BID. - Venlafaxine XR 37.5mg daily [employer] dose restarted - Agree with change to Carbamezapine 200 mg regular release TID for now- awaiting MAR from facilityfor verification of TID dosing. Consider check of carbamazepine level as gait disturbances can occur at high levels Follow-up: 1-2 days Subjective: HPI 71 y.o. year-old female presented from facility ([facility] for fall. Per review of H&P : unwitnessed fall at [facility], patient reportedly blacked out and woke up [...] she does know that she is at [facility] and here for a fall, she denies [...] eGFR 87.5 >60 mL/min EGFR IF NonAfrican [place]ayan 75.5 >60 mL/min Calcium 8.7 8.4 - [...] Nightly Gillian Sykes MD 50 mg at 05/30/22 2109 ARE THERE PERTINENT UPDATES TO PAST,FAMILY, OR SOCIAL HISTORY?: No Subjective: Patient feels like she is "going crazy". States she does not feel like herself. [place] dogs barking in the room next door [...] Temporal (!) 105 18 (!) 69 % 05/31/22 2140 104/64 (!) 96.7 F (35.9 C) Temporal 97 18 -- 05/31/225 120/68 -- -- 90 18 93 % 05/31/22 2100 113/67 97.7 F (36.5 C) Temporal 88 15 92 % 05/31/222044 (!) 140/68 -- -- 96 20 91 % 05/31/222029 119/62 -- -- 88 (!) 8 96 % 05/31/22 2015 112/68 -- -- 90 15 94 % [...] Date 06/01/22 0000 - 06/01/22 2359 Shift 9307-1813 1233-5567 6421-4180 24 Hour Total INTAKE Shift Total(mL/kg) OUTPUT Urine(mL/kg/hr) 500 500 Shift Total(mL/kg) 500(5.7) 500(5.7) Weight (kg) 88.5 88.5 88.5 88.5 Last BM: [employer] Diet: NPO for OR PHYSICAL: Physical Exam [...] Diagnostic Radiology ACCESSION EXAMDATE/TIME PROCEDURE ORDERING PROVIDER [id number] 05/30/2022 10:17 EDT CR Elbow 3+ Views Left [id number] -MARGARET CUEVAS CPT code 55371 Reason For Exam (CR Elbow 3+ Views [...] Diagnostic Radiology ACCESSION EXAMDATE/TIME PROCEDURE ORDERING PROVIDER [id number] 05/30/2022 10:17 EDT CR Femur 2+ Views Left n [id number] -CUEVASDARRIUS COOKLEY CPT code 21643 Reason For Exam (CR Femur 2+ Views [...] Tomography ACCESSION EXAM DATE/TIME PROCEDURE ORDERING PROVIDER [id number] 05/30/2022 16:[address] Head or Brain w/o 804037-WGJDOORADHA MOON Contrast CPT code 39615 Reason For Exam (CT Head or Brain [...] Tomography ACCESSION EXAM DATE/TIME PROCEDURE ORDERING PROVIDER [id number] 05/30/2022 09:[address] Head or Brain w/o 241026-BXMPOZZHL, LAURA Contrast CPT code 91212 Reason For Exam (CT Head or Brain [...] Result Date: 05/30/2022 [id number] Computed Tomography ACCESSION EXAM DATE/TIME PROCEDURE ORDERING PROVIDER [id number] 05/30/2022 09:[address] Spine Cervical w/o 248601 -ELICEO CAYLA Contrast CPT code 33343 Reason For Exam (CT Spine Cervical w/o [...] acute process. Report Dictated on Worksta tion: [id number] --- Final --- Dictated: 05/30/2022 10:58 am Dictating Physician: DO MCGUIRE ALFRED Signed Date and Time: 05/30/2022 11:00 am Signed by: DO MCGUIRE ALFRED Transcribed Date and Time: 05/30/2022 10:58 XR Tibia Fibula Bilateral Result Date: 05/30/2022 Patient Name: ANDRE BLANCA [facility]#: [id number] Diagnostic Radiology ACCESSION EXAMDATE/TIME PROCEDURE ORDERING PROVIDER [id number] 05/30/2022 19:27 EDT CR Tibia/Fibula 2 Views MD FARAZ, ERLINDA Bilateral CPT code 25292 Reason For Exam (CR Tibia/Fibula 2 Views [...] Diagnostic Radiology ACCESSION EXAMDATE/TIME PROCEDURE ORDERING PROVIDER [id number] 05/30/2022 10:36 EDT CR Chest Portable [id number] -DAXMALATHICAROLYNLALIT CPT code 72830 Reason For Exam (CR Chest Portable) fall, [...] Diagnostic Radiology ACCESSION EXAMDATE/TIME PROCEDURE ORDERING PROVIDER [id number] 05/30/2022 10:17 EDT CR Shoulder 2+ Views [id number] -MARGARET CUEVAS Left CPT code 65066 Reason For Exam (CR Shoulder 2+ Views [...] Diagnostic Radiology ACCESSION EXAMDATE/TIME PROCEDURE ORDERING PROVIDER [id number] 05/30/2022 10:36 EDT CR Pelvis 1 or 2 Views [id number] LYLE CPT code 16430 Reason For Exam (CR Pelvis 1 or [...] deficiency 06/02/2022 Yes I personally supervised the VACUUM CLEANER REPAIRER/PA-C in the evaluation and development of a [...] the day (including chart review,care coordination, and okax-sa-qsno encounter) was spent discussing/counseling the patient/family regarding the care plan for Andre Blanca. I examined the patient independently and reviewed relevant data myself and may have done so in the context of team rounds. A full chart review was performed. 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 Ordered labs, lab drawn at [id number]. Noticed expressive aphasia. Provider notified again . 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 Gillian Sykes MD Orthopaedic Surgery, PGY-3 * Radha Moon APRN - ELECTRICIAN TECHNICIAN - 05/31/2022 6:29 AM EDT Images from [...] mg Oral TID Radha Moon APRN - ELECTRICIAN TECHNICIAN lactated ringers infusion IntraVENous Continuous Radha Moon APRN - ELECTRICIAN TECHNICIAN sodium chloride flush 0.9 % injection 5-40 mL 5-40 mL IntraVENous 2 times per day Radha Moon APRN - ELECTRICIAN TECHNICIAN 10 mL at 05/30/22 2111 sodium chloride flush 0.9 % injection 5-40 mL 5-40 mL IntraVENous PRN Radha Moon APRN - ELECTRICIAN TECHNICIAN 0.9 % sodium chloride infusion IntraVENous PRN Radha Moon APRN - ELECTRICIAN TECHNICIAN ondansetron (ZOFRAN-ODT) disintegrating tablet 4 mg 4 mg Oral Q8H PRN aRdha Moon APRN - ELECTRICIAN TECHNICIAN Or ondansetron (ZOFRAN) injection 4 mg 4 mg IntraVENous Q6H PRN Radha Moon APRN - ELECTRICIAN TECHNICIAN 4 mg at 05/30/22 1127 polyethylene glycol (GLYCOLAX) packet 17 g 17 g Oral Daily Radha Moon APRN - ELECTRICIAN TECHNICIAN 17 g at 05/30/22 1508 acetaminophen (TYLENOL) tablet 1,000 mg 1,000 mg Oral 3 times per day Radha Moon APRN - ELECTRICIAN TECHNICIAN 1,000 mg at 05/31/22 0537 oxyCODONE (ROXICODONE) immediate release tablet 2.5 mg 2.5 mg Oral Q4H PRN Radha Moon APRN - ELECTRICIAN TECHNICIAN Or oxyCODONE (ROXICODONE) immediate release tablet 5 mg 5 mg Oral Q4H PRN Radha Moon APRN - ELECTRICIAN TECHNICIAN 5 mg at 05/31/22 0537 HYDROmorphone (DILAUDID) injection 0.25 mg 0.25 mg IntraVENous Q3H PRN Radha Moon APRN - ELECTRICIAN TECHNICIAN Or HYDROmorphone (DILAUDID) injection 0.5 mg 0.5 mg IntraVENous Q3H PRN Radha Moon APRN - ELECTRICIAN TECHNICIAN 0.5 mg at 05/31/22 0255 senna (SENOKOT) tablet 8.6 mg 1 tablet Oral Daily PRN Radha Moon APRN - ELECTRICIAN TECHNICIAN bisacodyl (DULCOLAX) EC tablet 5 mg 5 mg Oral Daily Radha Moon, VACUUM CLEANER REPAIRER - ELECTRICIAN TECHNICIAN 5 mg at 05/30/222108 busPIRone (BUSPAR) tablet 10 mg 10 mg Oral TID Radha Moon, VACUUM CLEANER REPAIRER - ELECTRICIAN TECHNICIAN 10 mg at 05/30/222108 carBAMazepine (CARBATROL) extended release capsule 200 mg 200 mg Oral BID Radha Moon VACUUM CLEANER REPAIRER - ELECTRICIAN TECHNICIAN 200 mg at 05/30/222109 fludrocortisone (FLORINEF) tablet 0.1 mg 0.1 mg Oral Daily Radha Moon VACUUM CLEANER REPAIRER - ELECTRICIAN TECHNICIAN 0.1 mg at 05/30/22 1508 levothyroxine (SYNTHROID) tablet 150 mcg 150 mcg Oral Daily Radha Moon, VACUUM CLEANER REPAIRER - ELECTRICIAN TECHNICIAN 150 mcg at 05/30/22 1507 melatonin tablet 5 mg 5 mg Oral Daily Radha Moon VACUUM CLEANER REPAIRER - ELECTRICIAN TECHNICIAN midodrine (PROAMATINE) tablet 5 mg 5 mg Oral TID Radha Moon APRN - ELECTRICIAN TECHNICIAN 5 mg at 05/30/222108 pantoprazole (PROTONIX) tablet 40 mg 40 mg Oral BID Radha Moon VACUUM CLEANER REPAIRER - ELECTRICIAN TECHNICIAN 40 mg at 05/30/222108 pravastatin (PRAVACHOL) tablet 40 mg 40 mg Oral Daily Radha Moon VACUUM CLEANER REPAIRER - ELECTRICIAN TECHNICIAN 40 mg at 05/30/22 150 pregabalin (LYRICA) capsule 150 mg 150 mg Oral BID Radha Moon VACUUM CLEANER REPAIRER - ELECTRICIAN TECHNICIAN 150 mg at 05/30/222108 risperiDONE (RISPERDAL) tablet 0.5 mg 0.5 mg Oral BID Radha Moon VACUUM CLEANER REPAIRER - ELECTRICIAN TECHNICIAN 0.5 mg at 05/30/222110 traZODone (DESYREL) tablet 50 mg 50 mg Oral Nightly Radha Moon VACUUM CLEANER REPAIRER - ELECTRICIAN TECHNICIAN 50 mg at 05/30/222108 venlafaxine (EFFEXOR XR) extended release capsule 75 mg 75 mg Oral Daily Radha Moon, VACUUM CLEANER REPAIRER - ELECTRICIAN TECHNICIAN 75 mg at 05/30/22 1512 metoclopramide (REGLAN) injection 10 mg 10 mg IntraVENous Q6H Radha Moon APRN - ELECTRICIAN TECHNICIAN 10 mg at 05/31/22 0255 ARE THERE [...] m) 195 lb (88.5 kg) Last BM: [employer] Diet: NPO for OR PHYSICAL: Physical Exam [...] Result Date: 05/30/2022 [id number] Diagnostic Radiology ACCESSION EXAMDATE/TIME PROCEDURE ORDERING PROVIDER [id number] 05/30/2022 10:17 EDT CR Elbow 3+ Views Left [id number] CAMARA CPT code 44668 Reason For Exam (CR Elbow 3+ Views [...] Result Date: 05/30/2022 [facility] [id number] Diagnostic Radiology ACCESSION EXAMDATE/TIME PROCEDURE ORDERING PROVIDER [id number] 05/30/2022 10:17 EDT CR Femur 2+ Views Left n [id number] CAMARA CPT code 45086 Reason For Exam (CR Femur 2+ Views [...] Tomography ACCESSION EXAM DATE/TIME PROCEDURE ORDERING PROVIDER [id number] 05/30/2022 16:[address] Head or Brain w/o [id number]-ZHKHKO, RADHA Contrast CPT code 57844 Reason For Exam (CT Head or Brain [...] Tomography ACCESSION EXAM DATE/TIME PROCEDURE ORDERING PROVIDER [id number] 05/30/2022 09:[address] Head or Brain w/o 847838-AXZGQNVYA, CAYLA Contrast CPT code 05452 Reason For Exam (CT Head or Brain [...] Result Date: 05/30/2022 [id number] Computed Tomography ACCESSION EXAM DATE/TIME PROCEDURE ORDERING PROVIDER [id number] 05/30/2022 09:[address] Spine Cervical w/o 716100 -CRANKSHAW, CAYLA Contrast CPT code 53773 Reason For Exam (CT Spine Cervical w/o [...] acute process. Report Dictated on Worksta tion: [id number] --- Final --- Dictated: 05/30/2022 10:58 am Dictating Physician: DO MCGUIRE ALFRED Signed Date and Time: 05/30/2022 11:00 am Signed by: DO MCGUIRE ALFRED Transcribed Date and Time: 05/30/2022 10:58 XR Tibia Fibula Bilateral Result Date: 05/30/2022 Patient Name: ANDRE BLANCA Diagnostic Radiology ACCESSION EXAMDATE/TIME PROCEDURE ORDERING PROVIDER [id number] 05/30/2022 19:27 EDT CR Tibia/Fibula 2 Views MD FARAZ, ERLINDA Bilateral CPT code 39931 Reason For Exam (CR Tibia/Fibula 2 Views [...] Diagnostic Radiology ACCESSION EXAMDATE/TIME PROCEDURE ORDERING PROVIDER [id number] 05/30/2022 10:36 EDT CR Chest Portable LALIT RECIO CPT code 79304 Reason For Exam (CR Chest Portable) fall, [...] Diagnostic Radiology ACCESSION EXAMDATE/TIME PROCEDURE ORDERING PROVIDER [id number] 05/30/2022 10:17 EDT CR Shoulder 2+ Views [id number] -CUEVAS MARGARET Left CPT code 08336 Reason For Exam (CR Shoulder 2+ Views [...] Diagnostic Radiology ACCESSION EXAMDATE/TIME PROCEDURE ORDERING PROVIDER [id number] 05/30/2022 10:36 EDT CR Pelvis 1 or 2 Views [id number] -LALIT PICHARDO CPT code 05804 Reason For Exam (CR Pelvis 1 or [...] Polypharmacy 05/31/2022 Yes I personally supervised the FREDERICK/ANALISA in [...] the day (including chart review,care coordination, and wqxt-yy-tvui encounter) was spent discussing/counseling the patient/family regarding the care plan for Andre Blanca. I examined the patient independently and reviewed relevant data myself and may have done so in the context of team rounds. A full chart review was performed. Cayla Madrigal MD Division of Trauma Department of Surgery [facility] Pager: [phone] * FREDERICK Meeks NP - 05/30/2022 12:59 PM EDT At patient bedside. No c-spine tenderness upon palpation, no numbness or tingling in extremities, full ROM without pain. C-collar cleared as per [facility] Trauma guidelines. documented in this encounterSUMMA Work Phone: [phone]) 732-797910-23-2022 Note Attestation signed by Cayla Madrigal MD [...] Hypoxia 06/05/2022 Yes I personally supervised the VACUUM CLEANER REPAIRER/ANALISA in the evaluation and development of a [...] MD Division of Trauma Department of Surgery [facility] Pager: [phone] Department of Trauma / Critical Care Discharge [...] she was able to be discharged to [facility] on 06/05 in good condition. Consultations: IP CONSULT TO ORTHOPEDIC SURGERY IP CONSULT TO GERIATRICS IP CONSULT TO PALLIATIVE CARE PCP: Kianna Izquierdo MD Recommended Follow-ups: Schedule an appointment with Dr. Neto Jacobsen MD as soon as possible for a visit in 2 week(s) Specialty: Orthopedic Surgery Post operative follow up [address] [facility] [address] [facility] [address] Schedule an appointment with [facility] Trauma as soon as possible for a visit in 2 week(s) Specialty: Trauma Surgery [address] [facility] [address] [facility] [id number] Treatments and Procedures with outcomes: Labs: Data [...] 09:38 AM INR 1.0 (more content not included)...[facility]10-23-2022 Hospital course Narrative* Radha Moon APRN - ML - 06/05/2022 12:05 PM EDT Images from [...] she was able to be discharged to [facility] on 06/05 in good condition. Consultations: IP CONSULT TO ORTHOPEDIC SURGERY IP CONSULT TO GERIATRICS IP CONSULT TO PALLIATIVE CARE PCP: Kianna Izquierdo MD Recommended Follow-ups: Schedule an appointment with Dr. Neto Jacobsen MD as soon as possible for a visit in 2 week(s) Specialty: Orthopedic Surgery Post operative follow up 1 [facility] [address] [facility] [address] Schedule an appointment with [facility] Trauma as soon as possible for a visit in 2 week(s) Specialty: Trauma Surgery [address] [place] [address] [address] [facility] [address] Treatments and Procedures with outcomes: Labs: Data [...] Diagnostic Radiology ACCESSION EXAMDATE/TIME PROCEDURE ORDERING PROVIDER [id number] 05/30/2022 10:17 EDT CR Elbow 3+ Views Left [id number] -MARGARET CUEVAS CPT code 72171 Reason For Exam (CR Elbow 3+ Views [...] Diagnostic Radiology ACCESSION EXAMDATE/TIME PROCEDURE ORDERING PROVIDER [id number] 05/30/2022 10:17 EDT CR Femur 2+ Views Left n [id number] -CUEVAS MARGARET CPT code 77675 Reason For Exam (CR Femur 2+ Views [...] Diagnostic Radiology ACCESSION EXAMDATE/TIME PROCEDURE ORDERING PROVIDER [id number] 05/31/2022 23:52 EDT CR Foot Complete 3+ [id number], Views Left KORTNIE CPT code 22020 Reason For Exam (CR Foot Complete 3+ [...] Tomography ACCESSION EXAM DATE/TIME PROCEDURE ORDERING PROVIDER [id number] 05/30/2022 16:[address] Head or Brain w/o 104793-[id number], RADHA Contrast CPT code 36431 Reason For Exam (CT Head or Brain [...] Tomography ACCESSION EXAM DATE/TIME PROCEDURE ORDERING PROVIDER [id number] 05/30/2022 09:[address] Head or Brain w/o [id number], CAYLA Contrast CPT code 70326 Reason For Exam (CT Head or Brain [...] Result Date: 05/30/2022 [id number] Computed Tomography ACCESSION EXAM DATE/TIME PROCEDURE ORDERING PROVIDER [id number] 05/30/2022 09:[address] Spine Cervical w/o [id number] -CRANKSHAW, CAYLA Contrast CPT code 12821 Reason For Exam (CT Spine Cervical w/o [...] acute process. Report Dictated on Worksta tion: [id number] --- Final --- Dictated: 05/30/2022 10:58 am Dictating Physician: DO MCGUIRE ALFRED Signed Date and Time: 05/30/2022 11:00 am Signed by: DO MCGUIRE ALFRED Transcribed Date and Time: 05/30/2022 10:58 XR Tibia Fibula Bilateral Result Date: 05/30/2022 Patient Name: ANDRE BLANCA Diagnostic Radiology ACCESSION EXAMDATE/TIME PROCEDURE ORDERING PROVIDER [id number] 05/30/2022 19:27 EDT CR Tibia/Fibula 2 Views MD FARAZ, ERLINDA Bilateral CPT code 22599 Reason For Exam (CR Tibia/Fibula 2 Views [...] Diagnostic Radiology ACCESSION EXAMDATE/TIME PROCEDURE ORDERING PROVIDER [id number] 05/30/2022 10:36 EDT CR Chest Portable Cynthia LALIT AVENDAÑO CPT code 74758 Reason For Exam (CR Chest Portable) fall, [...] THOMAS Transcribed Date and Time: 05/30/2022 10:29 DUP LOWER EXTREMITY VENOUS BILATERAL Result Date: 06/02/2022 [facility] Lower Extremity Venous Duplex Report Patient [place] : 1950 Study 06/02/20 Name: Andre (71yrs) Date: Age: 71 Account: [id number] Gender: F Loc: 6118 BP: Ordering Physician: Radha Moon [employer]: Liliana Mejia RVT Interpreting Physician: Kwesi Gooden MD Location: [facility] Indications: Lower extremity pain and swelling [...] supine position. Images were obtained using a ReviewPro E10s vascular ultrasound machine. Venous flow and imaging: [...] Diagnostic Radiology ACCESSION EXAMDATE/TIME PROCEDURE ORDERING PROVIDER [id number] 05/30/2022 10:17 EDT CR Shoulder 2+ Views [id number] -MARGARET CUEVAS Left CPT code 92176 Reason For Exam (CR Shoulder 2+ Views [...] Diagnostic Radiology ACCESSION EXAMDATE/TIME PROCEDURE ORDERING PROVIDER [id number] 05/31/2022 20:59 EDT CR Pelvis 1 or 2 Views [id number] -GILLIAN SYKES CPT code 46863 Reason For Exam (CR Pelvis 1 or [...] Diagnostic Radiology ACCESSION EXAMDATE/TIME PROCEDURE ORDERING PROVIDER [id number] 05/30/2022 10:36 EDT CR Pelvis 1 or 2 Views [id number] LYLE CPT code 13184 Reason For Exam (CR Pelvis 1 or [...] Outpatient: None Disposition: She was discharged to care home Discharge Medications: She did have significant changes [...] up to 7 days. Vitamin D (Ergocalciferol) 87928 units Caps Take 50,000 Units by mouth [...] Sodium 30 MG/0.3ML injection Vitamin D (Ergocalciferol) 28323 units Caps Discharge Condition: Physical Exam at [...] Hypoxia 06/05/2022 Yes I personally supervised the VACUUM CLEANER REPAIRER/ANALISA in the evaluation and development of a [...] MD Division of Trauma Department of Surgery [facility] Pager: [phone] documented in this [employer] Work Phone: 1(228) 415-350710-18-2022 Hospital Discharge instructions* Discharge Instructions* Earl Richardson [...] Izquierdo MD Discharging Nurse: Discharging Hospital Unit/Room#: 6118/[id number] Discharging Unit Phone Number: Emergency Contact: No [...] Assisted Dressing Assisted Toileting Dependent Feeding Independent Dietary Assistant Assisted Med Delivery whole Wound Care Documentation and Therapy: Incision 05/31/22 Hip Anterior;Left (Active) Dressing Status Clean;Dry;Intact 06/03/22 0803 Dressing/Treatment Silver dressing 06/03/22 0803 Closure Other (Comment) 05/31/222139 Margins Other (Comment) 05/31/222139 Incision Assessment Other (Comment) 05/31/22 214 Drainage Amount None 06/03/22 0803 Odor None 06/03/22 0803 Kanwal-incision Assessment Intact 06/03/22 0803 Number of days: 2 Incision 06/01/22 Elbow Anterior;Left (Active) Dressing Status Clean;Dry;Intact 06/03/22 0803 Dressing/Treatment Jerardo wrap;Splint 06/03/22 0803 Drainage Amount None 06/03/22 0803 Odor None 06/03/22 0803 Kanwal-incision Assessment Intact 06/03/22 0803 Number of days: 2 Elimination: Continence: Bowel: [...] Readmission: 18 Discharging to Facility/ Agency Name: Jamel Hayes Address: [address] [place] [address] Fax: Dialysis Facility (if applicable) Name: Address: Dialysis Schedule: Phone: Fax: [facility] Professional signature: PHYSICIAN SECTION Prognosis: Good Condition at Discharge: Stable Rehab Potential (if transferring to Rehab): Good Recommended Labs or Other Treatments After Discharge: None Physician Certification: I certify the above information and transfer of Andre Blanca is necessary for the continuing treatment of the diagnosis listed and that she requires Senior Care Facility for less 30 days. Update Admission H&P: No change in H&P PHYSICIAN SIGNATURE: [facility] this [facility] Work Phone: 1(932) 156-224906-08-2022 History of Present illness Narrative* FREDERICK Tilley CNP - 01/19/2022 3:30 PM EDT Reviewed recent orthostatic VS and ortho stasis resolved OK for DC to facility Reviewed UA: no UTI Nola Morrison APRN, [facility] Medicine * Derek Ann Marie Grullon OT - 01/19/2022 9:57 AM EDT Occupational Therapy Facility/Department: [address] Occupational Therapy Initial Assessment Name: Andre Blanca : 1950 Date of Service: 01/19/2022 Having reviewed the treatment plan and goals for this patient, I certify that the plan of care below is medically necessary and appropriate. Discharge Recommendations: Residential Care with OT OT Equipment Recommendations Equipment Needed: No (TBD at next level of care) Patient Diagnosis(es): The encounter diagnosis was Status post reverse total replacement of left shoulder. Past Medical History: has a past medical history of Bipolar 1 disorder ([facility]), Cerebral artery occlusion with cerebral infarction ([facility]), COPD (chronic obstructive pulmonary disease) ([facility]), Depression,DVT (deep venous thrombosis) ([facility]), Fibromyalgia, Hyperlipidemia, Hypothyroid, IBS (irritable bowelsyndrome), MDD [...] Independent (with rollator) Transfer Assistance: Independent Active Cat Wagon Operator: No Occupation: Retired Additional Comments: Pt from [...] quad AROM: Grossly decreased, non-functional (RUE WFL, AUNG unable to formally assess d/t no AROM [...] requires increased assist this date to don hospital gown d/t increased pain at this time. Activity [...] Group Co-treatment Time In 840 Time Out 926 Minutes 46 Timed Code Treatment Minutes: 31 Minutes (ADL x2) Derek Grullon OT * Nola Morrison APRN - MAIL HANDLER - 01/19/2022 9:37 AM EDT Images from the original note were not included. Hospitalist Progress Note 01/19/2022 9:37 AM [phone]: Please page me ([phone]) or perfect serve me for patient care issues. [phone]: Please page [facility] night Hospitalist for any issues. Subjective: Admit [...] RDW 15.5* PLT 244 BMP: Recent Labs 01/19/22414 NA 136 K 3.7 CL 102 CO2 [...] of Hospitalist Medicine Inpatient Medical Services PAGER: [phone] * Familia Esparza MD - 01/19/2022 9:03 AM EDT Images from the original note were not included. [place] [address] Dept: [phone] Loc: [phone] Orthopedic Progress Note Name: Andre Blanca Date:01/19/2022 Attending:Kim Muhammad MD Subjective No events o/n. Pain controlled, though mildly sore. No acute issues Objective Vitals: Vitals: 01/18/228 01/18/22 2340 01/19/22 0406 01/19/22 0728 BP: 130/88 [...] instructions in AVS -Ortho 1 * Seda Bradford PTA - 01/19/2022 8:11 AM EDT Physical Therapy Facility/Department: [address] Daily Treatment Note Name: Andre Blanca : 1950 Date of Service: 01/19/2022 Discharge Recommendations: Subacute/Senior Care Facility Patient Diagnosis(es): The encounter diagnosis was [...] (1 ther act, 1 gait) Seda Bradford PTA * Maia Hernandez PT - 01/18/2022 1:48 PM EDT Physical Therapy Facility/Department: [address] Physical Therapy Initial Assessment Name: Andre Blanca : 1950 Date of Service: 01/18/2022 Having reviewed the treatment plan and goals for this patient, I certify that the plan of care below is medically necessary and appropriate. Discharge Recommendations: Subacute/Senior Care Facility PT Equipment Recommendations Equipment Needed: No [...] for transfers and Ruby for ambulation with HOSPICE VOLUNTEER. Pt demos decreased balance and decreased safety [...] Independent (with rollator) Transfer Assistance: Independent Active Cat Wagon Operator: No Occupation: Retired Additional Comments: Pt from [...] stand with RUE support on EOB and HOSPICE VOLUNTEER given in static standing. Some unsteadiness in [...] Fair;+ Standing - Dynamic: Fair;- AM-PAC Score [facility] Inpatient Mobility Raw Score : 13 (01/18/221345) [facility] Inpatient T-Scale Score : 36.74 (01/18/221345) Mobility Inpatient CMS 0-100% Score: 64.91 (01/18/221345) Mobility Inpatient [facility] G-Code Modifier : CL (01/18/221345) Goals Short [...] 1300 Time Out 1315 Minutes 15 Maia Hernandez PT * Lacy Gonsalves RN - 01/18/2022 12:36 PM EDT Report to [facility] [place] via bed Sleeping at intervals easily arouses No family here to update Pt will call from room to update who she desires documented in this [facility] Work Phone: [phone]) 107-910606-08-2022 Hospital Discharge instructions* Discharge Instr - ROSALIO* [...] directive for healthcare treatment Durable power of claims attorney for health care;Living will -- Adult Children Giana -- Admitting Physician: Kim Muhammad MD PCP: Kianna Izquierdo MD Discharging Nurse: Spencer Brush Discharging Hospital Unit/Room#: 168/1681 Discharging Unit Emergency Contact: Extended Emergency Contact [...] Problem List Diagnosis Code Bipolar 1 disorder ([facility]) F31.9 COPD (chronic obstructive pulmonary disease) ([facility]) J44.9 H/O TIA (transient ischemic attack) and [...] Assisted Dressing Assisted Toileting Assisted Feeding Independent Dietary Assistant Independent Med Delivery whole Wound Care Documentation and Therapy: Incision 01/18/22 Shoulder Left (Active) Dressing Status Clean;Dry;Intact 01/19/22 0744 Dressing/Treatment Silver dressing;Other (comment);Ice applied/Cryotherapy 01/19/22 0744 Incision Assessment Other (Comment) 01/19/22 0744 Drainage [...] applicable) Name: Address: Dialysis Schedule: Phone: Fax: [facility] Professional signature: {Esignature:[id number]} PHYSICIAN SECTION Prognosis: {Prognosis:8779231702} Condition at Discharge: { Patient Condition:210189179} Rehab Potential (if transferring to Rehab): {Prognosis:9489375936} Recommended Labs or Other Treatments After Discharge: Physician Certification: I certify the above information and transfer of Andre Blanca is necessary for the continuing treatment of the diagnosis listed and that she requires {Admit to Appropriate Level of Care:55957} for {GREATER/LESS:164442626} 30 days. Update Admission H&P: {CHP DME Changes in HandP:160727545} PHYSICIAN SIGNATURE: {Esignature:516266765} * Additional Instructions* Nurys Leong PA - [...] You can also call (generic nurse) or [phone] and page Acute Pain Service alterations sewer for further questions or concerns. documented in this [employer] Work Phone: 1(867) 718-906805-27-2022 NoteDepartment of Trauma / Critical Care Discharge [...] PATIENT: Andre Blanca STUDY DATE: 01/05/2022 [facility]#: [id number] : 1950 AGE: 71 HT/WT: 170.2 cm (67 93 kg (204.6 in) lb) GENDER: F BP: 158 / 74 LOCATION: [facility] PATIENT Inpatient main STATUS: *ORDERING PHYSICIAN: * Ben Cochran MD *READING PHYSICIAN: * Aj, *HISTOLOGY SPECIALIST: * Genaro Camacho [facility] INDICATIONS: Recurrent syncope; labile bp. CONCLUSIONS SUMMARY: [...] archived for permanent (more content not included)... [facility] [employer] SystemEvaluation note* Diagnosis Chronic left shoulder pain Pain in joint, shoulder region documented in this encounter [facility] Work Phone: Evaluation noteNo assessment information available [facility] Work Phone: Evaluation note* Diagnosis Status post reverse total replacement of left shoulder- Primary Left rotator cuff tear arthropathy documented in this encounter [facility] Work Phone: Evaluation note* Diagnosis Glenohumeral arthritis, left S/P reverse total shoulder arthroplasty, left documented in this encounter [employer] Work Phone: Evaluation note* Diagnosis Left shoulder pain, unspecified chronicity [facility] Work Phone: Evaluation note* Diagnosis Arthritis of knee, right Unspecified arthropathy, lower leg documented in this encounter [employer] Work Phone: Evaluation note* Diagnosis Closed displaced fracture [...] deficiency Hypoxia Hypoxemia documented in this encounter [facility] Work Phone: Evaluation note* Diagnosis Right knee pain, unspecified chronicity- Primary documented in this encounter [facility] [employer] GroupEvaluation note* Diagnosis Right knee pain, unspecified chronicity documented in this encounter [facility] [employer] note* Diagnosis Primary osteoarthritis of right knee- Primary Primary osteoarthritis of right knee Arthritis of knee, right documented in this encounter [facility] [employer] note* Diagnosis S/P total knee arthroplasty, right- Primary documented in this encounter [facility] [employer] note* Diagnosis Primary osteoarthritis of right knee S/P total knee arthroplasty, right [facility]* Diagnosis S/P total knee arthroplasty, right [facility]* Diagnosis S/P total knee arthroplasty, right [facility]* Diagnosis Status post total right knee replacement Primary osteoarthritis of right knee [facility]* Diagnosis Status post total right knee replacement- Primary Primary osteoarthritis of right knee [facility]* Diagnosis Right hip pain- Primary Pain in joint, pelvic region and thigh [facility]* Diagnosis Right hip pain Pain in joint, pelvic region and thigh [facility]* Diagnosis Right hip pain Pain in joint, pelvic region and thigh [facility]* Diagnosis Right hip pain Pain in joint, pelvic region and thigh Avascular necrosis of bone of hip, right (HCC) [facility]* Diagnosis Pneumonia due to organism- Primary Pneumonia due to other specified organism Pneumonia due to organism Pneumonia due to other specified organism Fall, initial encounter Neuropathy Mononeuritis of unspecified site Pneumonia due to infectious agent Unspecified infectious and parasitic diseases [facility]* Diagnosis Spondylolysis, lumbosacral- Primary Congenital spondylolysis, lumbosacral region Sacroiliac dysfunction Nonallopathic lesion of sacral region, not elsewhere classified Lumbar pain Lumbago [facility]* Diagnosis Lumbar pain Lumbago documented in this encounter [facility]* Attachments The following attachments cannot be sent through Care Everywhere. * Hip Bursitis Exercises ([place]) [facility] (narrative)No reason for referral information availableWWVUMedicine [facility] Work Phone: Reason for visit Narrative* Imaging (Routine) - Closed Specialty Diagnoses / Procedures Referred By Ksenia t Referred To Contact Radiology Diagnoses Right hip pain Avascular necrosis of bone of hip, right (HCC) Procedures MR hip right Almas Avina MD [address] [place] [address] [address] [place] [address] Phone: tel: fax: Referral ID Status Reason Start Date Expiration Date Visits Re quested Visits Authorized [id number] Closed 01/12/2024 01/11/2025 1 1 [facility] Health Summary Purpose Family History No Family History Records FoundNo Family History Records FoundNo Family History Records FoundNo Family History Records FoundNo Family History Records FoundNo Family History Records FoundNo Family History Records FoundNo Family History Records FoundNo Family History Records Found Advance Directives No Advanced Directives Records FoundDocuments on File Type Date Recorded Patient Denier Control Operator Expl anation ACP-Advance Directive 11/17/2020 12:00 AM Documents on File Type Date Recorded Patient Denier Control Operator Expl anation ACP-Do Not Resuscitate 01/12/2022 11:50 [...] Documents on File Type Date Recorded Patient Denier Control Operator Expl anation ACP-Advance Directive 01/21/2022 9:23 AM ACP-Do Not Resuscitate 01/12/2022 11:50 AM ACP-Advance Directive 12/27/2021 Documents on File Type Date Recorded Patient Denier Control Operator Expl anation ACP-Advance Directive 05/30/2022 Latest Code Status on File Code Status Date Activated Date Inactivated Comments Full Code 05/30/2022 11:06 AM Documents on File Type Date Recorded Patient Denier Control Operator Expl anation Advance Directives and Living Will 01/18/2022 DNR (Do Not Resuscitate) 01/04/2022 Latest Code Status on File Code Status Date Activated Date Inactivated Comments Full Code 07/07/2022 3:47 AM 07/07/2022 6:38 PM Documents on File Type Date Recorded Patient Denier Control Operator Expl anation Advance Directives and Living Will [...] Documents on File Type Date Recorded Patient Denier Control Operator Expl anation Advance Directives and Livin g [...] Documents on File Type Date Recorded Patient Denier Control Operator Expl anation Advance Directives and Livin g [...] Documents on File Type Date Recorded Patient Denier Control Operator Expl anation Advance Directives and Living Will [...] Complaint and Reason for Visit Chief Complaint RESIDENTIAL LABWORK RESIDENTIAL LABWORK RESIDENTIAL BLOOD WORK Chief Complaint RESIDENTIAL LABWORK RESIDENTIAL LABWORK RESIDENTIAL BLOOD WORK LABWORK LABWORK Chief Complaint RESIDENTIAL LABWORK RESIDENTIAL BLOOD WORK LABWORK LABWORK Chief Complaint LABWORK LABWORK LABWORK RESIDENTIAL LAB WORK Chief Complaint LABWORK LABWORK RESIDENTIAL LAB WORK RESIDENTIAL LABWORK Chief Complaint RESIDENTIAL LAB WOR K RESIDENTIAL LABWORK LABWORK Chief Complaint RESIDENTIAL LAB WOR K RESIDENTIAL LABWORK LABWORK RESIDENTIAL LABWORK RESIDENTIAL LABWORK Chief Complaint RESIDENTIAL LABWORK RESIDENTIAL LABWORK LABWORK LABWORK LABWORK Chief Complaint RESIDENTIAL LABWORK RESIDENTIAL LABWORK LABWORK LABWORK LABWORK RESIDENTIAL LAB WORK Chief Complaint RESIDENTIAL LABWORK RESIDENTIAL LABWORK LABWORK LABWORK LABWORK RESIDENTIAL LABWORK RESIDENTIAL LAB WORK Chief Complaint LABWORK LABWORK LABWORK RESIDENTIAL LABWORK RESIDENTIAL LAB WORK LABWORK RESIDENTIAL LABWORK Chief Complaint LABWORK RESIDENTIAL LABWORK RESIDENTIAL LAB WORK LABWORK RESIDENTIAL LABWORK LABWORK Chief Complaint LABWORK RESIDENTIAL LABWORK RESIDENTIAL LAB WORK LABWORK RESIDENTIAL LABWORK LABWORK LABWORK Chief Complaint LABWORK RESIDENTIAL LABWORK RESIDENTIAL LAB WORK LABWORK RESIDENTIAL LABWORK LABWORK LABWORK RESIDENTIAL LAB WORK Chief Complaint LABWORK RESIDENTIAL LABWORK LABWORK LABWORK RESIDENTIAL LAB WORK RESIDENTIAL LABWORK RESIDENTIAL LABWORK Chief Complaint LABWORK RESIDENTIAL LABWORK LABWORK LABWORK RESIDENTIAL LAB WORK RESIDENTIAL LABWORK RESIDENTIAL LABWORK RESIDENTIAL LABWORK RESIDENTIAL LAB WORK Chief Complaint LABWORK LABWORK RESIDENTIAL LAB WORK RESIDENTIAL LABWORK RESIDENTIAL LABWORK RESIDENTIAL LABWORK RESIDENTIAL LAB WORK LABWORK Chief Complaint RESIDENTIAL LABWORK RESIDENTIAL LABWORK RESIDENTIAL LABWORK RESIDENTIAL LAB WORK LABWORK RESIDENTIAL LAB WORK RESIDENTIAL LAB WORK Chief Complaint LABWORK RESIDENTIAL LAB WORK RESIDENTIAL LAB WORK RESIDENTIAL LAB WORK Chief Complaint RESIDENTIAL LAB WOR K RESIDENTIAL LABWORK Chief Complaint RESIDENTIAL LAB WOR K RESIDENTIAL LABWORK RESIDENTIAL LABWORK LABWORK Chief Complaint RESIDENTIAL LAB WOR K RESIDENTIAL LABWORK RESIDENTIAL LABWORK LABWORK LABWORK Chief Complaint RESIDENTIAL LAB WOR K RESIDENTIAL LABWORK RESIDENTIAL LABWORK LABWORK LABWORK RESIDENTIAL LAB WORK Chief Complaint LABWORK RESIDENTIAL LAB WORK RESIDENTIAL LAB WORK Chief Complaint Admit Date LABWORK July 08, 2024 5:00am LABWORK July 29, 2024 5:00am LABWORK September 30, 2024 5:00am Reason for Referral Specialty Diagnoses / Procedures Referred By Ksenia t Referred To Contact General Surgery: Trauma/ Critical Care / Trauma Surgery Diagnoses Fall at home, initial encounter Radha Moon, FREDERICK - ELECTRICIAN TECHNICIAN [address] [place] [address] [facility]fl Spi Trauma [address] [place] [address] Referral ID Status Reason Start Date Expiration Date V isits Requested Visits Authorized [id number] Open Specialty Services Required 06/05/2022 06/05/2023 1 1 Scheduling Instructions [facility] Trauma Surgery- Jessika Collins MD [address], [address] [place] [address] Comments The patient can be scheduled with any member of the group, including the provider with the first available appointments. Specialty Diagnoses / Procedures Referred By Contac t Referred To Contact Physical Therapy Diagnoses Status post total right knee replacement Primary osteoarthritis of right knee Procedures IA OFFICE/OUTPATIENT NEW HIGH MDM 60-74 MINUTES Abiola Connolly PA-C [address] [facility] [address] [place] [address] Referral ID Status Reason Start Date Expiration Date Visits Requested Visits Authorized [id number] Pending Review Eval and Treat 3 11/29/2023 99 99 Specialty Diagnoses / Procedures Referred By Contac t Referred To Contact Radiology Diagnoses Right hip pain Procedures MR hip right wo Almas Laureano MD [address] [facility] [address] [place] [address] Referral ID Status Reason Start Date Expiration Date V isits Requested Visits Authorized [id number] Pending Review 09/13/2023 09/12/2024 1 1 Additional Source Comments INFORMATION SOURCE (unrecogn ized section and content) DATE CREATED AUTHOR 08/20/2020 [employer] ([place]) DATE CREATED AUTHOR AUTHOR'S ORGANIZ ATION 11/08/2020 [facility] Fabiana Rick DATE CREATED AUTHOR AUTHOR'S ORGANIZ ATION 05/25/2022 [...] SHS DATE CREATED AUTHOR AUTHOR'S ORGANIZ ATION 06/26/2025 [facility] Goals (unrecognized section and content) Goals [...] Date End Da te Ergocalciferol (VITAMIN D) 29851 units CAPS Take 50,000 Units by mouth [...] Reason: Patient/family refused)2037 (Given - Provider: Sawyer Beal, SHA) 014 (Not Given - Provider: Sawyer Beal RN - Reason: Patient/family refused - Comment: Pt stated previously to please not wake her up if she is sleeping)08 (Given - Provider: Spencer Brush LPN)131 (Given - Provider: Shelby Vidal RN)194 (Due) albuterol sulfate HFA (PROVENTIL;VENTOLIN;PROAIR) 108 (90 [...] RN) 08 (Given - Provider: Spencer Brush LPN)131 (Given - Provider: Shelby Vidal RN)2100 (Due) carBAMazepine (TEGRETOL) tablet 200 mg 200 mg, Oral, 3 TIMES DAILY, First dose on Mon01/18/22 at 1615, Until Discontinued 1655 (Not Given - Provider: Spnecer Brush LPN - Reason: Medication not available)2041 (Given - Provider: Sawyer Beal RN) 08 (Given - Provider: Spencer Brush LPN)131 (Given - Provider: Shelby Vidal RN)2100 (Due) ceFAZolin (ANCEF) 2000 mg in dextrose 4 % 100 mL IVPB (premix) (COMPLETED) 2,000 mg, IntraVENous, [employer] TO O.R., 1 dose, On Mon01/18/22 at 0700, Antimicrobial Indications: Surgical Prophylaxis, Administer within 1 hour prior to incision. Recommend to repeat in 3-4 hours after initial dose if still intra-op., Pre-op (day of surgery) 08 (Given by Other Clinician - Provider: Lacy Gonsalves RN - Comment: sales 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 gave in or) ceFAZolin (ANCEF) 2000 mg [...] Brush LPN - Reason: Medication not available) 08 (Given - Provider: Spencer Brush LPN) levothyroxine (SYNTHROID) tablet 175 mcg 175 mcg, Oral, DAILY, First dose on Mon01/18/22 at 1615, Until Discontinued, Tube feeding (TF) interaction, obtain physician order to manage, recommend holding TF for 30 minutes before and after dose. 0620 (Not Given - Provider: Sawyer Beal RN - Reason: Other - Comment: duplicate order)06 (Given - Provider: Sawyer Beal RN) methylPREDNISolone sodium (SOLU-MEDROL) injection 125 mg 125 mg, IntraVENous, ONCE, On Mon01/18/22 at 1800, For 1 dose 1800 (Due) metoclopramide (REGLAN) injection 10 mg 10 mg, IntraVENous, EVERY 6 HOURS, First dose on Mon01/18/22 at 1800, Until Discontinued 1800 (Due) 0013 (Given - Provider: Sawyer Beal RN)06 (Given - Provider: Sawyer Beal RN)1315 (Given - Provider: Shelby Vidal RN)184 (Not Given - Provider: Shelby Vidal RN - Reason: Loss of IV access) midodrine (PROAMATINE) tablet 5 mg 5 mg, Oral, 3 TIMES DAILY, First dose on Mon01/18/22 at 1800, Until Discontinued, Do not give after 1800 or within 4 hrs of bedtime. 1655 (Not Given - Provider: Spencer Brush LPN - Reason: Medication not available) 0813 (Given - Provider: Spencer Brush LPN)131 (Given - Provider: Shelby Vidal RN)173 (Given - Provider: Spencer Brush LPN) mometasone-formoterol (DULERA) 200-5 MCG/ACT inhaler 2 puff 2 puff, Inhalation, 2 TIMES DAILY, First dose on Mon01/18/22 at 2000, Until Discontinued, Rinse mouth out with water (without swallowing) after every dose. 2213 (Not Given - Provider: Vicente Mcdowell RCP - Reason: Patient/family refused) 09 (Given - Provider: Neville Santo RCP)1999 (Due) [...] First dose on Mon01/18/22 at 2100, Until Discontinued, For Line Patency: Peripheral IV [...] RN) 0816 (Given - Provider: Spencer Brush LPN)2100 (Due) traZODone (DESYREL) tablet 50 mg 50 mg, Oral, NIGHTLY, First dose on Mon01/18/22 at 2100, Until Discontinued 2040 (Given - Provider: Sawyer Beal RN) 2100 (Due) venlafaxine (EFFEXOR XR) extended release capsule 37.5 mg 37.5 mg, Oral, DAILY, First dose on Mon01/18/22 at 1615, Until Discontinued, Do not crush or break. 1655 (Not Given - Provider: Spencer Brush [...] 0013 (Given - Provid er: Sawyer Beal RN)405 (Given - Provider: Sawyer Beal RN) ondansetron (ZOFRAN) injection 4 mg(Linked Group 1) 4 mg, IntraVENous, EVERY 6 HOURS PRN, Starting on Mon01/18/22 at 1318, Until Discontinued, Nausea, Vomiting, Administer if oral route cannot be used., Post-op ondansetron (ZOFRAN) tablet 4 mg 4 mg, Oral, EVERY 6 HOURS PRN, Starting on Mon01/18/22 at 1544, Until Discontinued, Nausea, Vomiting 405 (Given - Provid er: Sawyer Beal RN) [...] Severe (7-10) 2038 (Given - Provider: Sawyer Beal, RN) 1314 (Given - Provider: Shelby Vidal [...] Mckeon LPN)141 (Given - Provider: Maria D Quinonez, SHA)2005 (Given - Provider: Susan Weeks RN) 06 (Given - Provider: Urvashi Garza RN)1428 (Given - Provider: Gerardo Last RN)2118 (Given - Provider: Juan Manuel Santos, RN) 05 (Given - Provider: Juan Manuel Santos RN)1415 (Given - Provider: Gerardo Last RN)2199 (Due) [...] dose on Mon05/30/22 at 1400, Until Discontinued 075 (Given - Provider: Lisha Harrington RN)141 (Given - Provider: Maria D Quinonez RN)2005 (Given - Provider: Susan Weeks RN) 09 (Given - Provider: Gerardo Last RN)1428 (Given - Provider: Gerardo Last RN)2118 (Given - Provider: Juan Manuel Santos RN) 08 (Given - Provider: Gerardo Last RN)1415 (Given - Provider: Gerardo Last RN)2099 (Due) carBAMazepine (TEGRETOL) tablet 200 mg 200 mg, Oral, 3 TIMES DAILY, First dose on Mon05/31/22 at 1400, Until Discontinued 075 (Given - Provider: Lisha Harrington RN)141 (Given - Provider: Maria D Quinonez RN)2005 (Given - Provider: Susan Weeks RN) 09 (Given - Provider: Gerardo Last RN)1428 (Given - Provider: Gerardo Last RN)2118 (Given - Provider: Juan Manuel Santos RN) 08 (Given - Provider: Gerardo Last RN)1415 (Given - Provider: Gerardo Last RN)2099 (Due) enoxaparin Sodium (LOVENOX) injection 30 mg 30 mg, SubCUTAneous, 2 TIMES DAILY, First dose on Mon06/01/22 at 2100, Until Discontinued, Indication of Use: Prophylaxis-DVT/PE 0754 (Given - Provider: Lisha Harrington, RN)2005 (Given - Provider: Susan Weeks, RN) 09 (Given - Provider: Gerardo Last, RN)2119 (Given - Provider: Juan Manuel Santos, RN) 812 (Given - Provider: Gerardo Last RN)2099 (Due) fludrocortisone (FLORINEF) tablet 0.1 mg 0.1 mg, Oral, DAILY, First dose on Mon05/30/22 at 1330, Until Discontinued 075 (Given - Provider: Lisha Harrington RN) 09 (Not Given - Provider: Gerardo Last, SHA - Reason: Patient/family refused) 08 (Given - Provider: Gerardo Last, RN) levothyroxine (SYNTHROID) tablet 150 mcg 150 mcg, Oral, DAILY, First dose on Mon05/30/22 at 1330, Until Discontinued, Tube feeding (TF) interaction, obtain physician order to manage, recommend holding TF for 30 minutes before and after dose. 0553 (Given - Provider: Walter Mckeon LPN) 0608 (Given - Provider: Urvashi Garza RN) 05 (Given - Provider: Juan Manuel Santos, SHA) melatonin tablet 5 mg 5 mg, Oral, DAILY, First dose on Mon05/30/22 at 1330, Until Discontinued 2005 (Given - Provider: Susan Weeks, RN) 2118 (Given - Provider: Juan Manuel Santos, SHA) 2099 (Due) methocarbamol (ROBAXIN) tablet 500 mg [...] modification) on Mon05/31/22 at 2100, Until Discontinued 0754 (Given - Provider: Lisha Harrington RN) midodrine (PROAMATINE) tablet 5 mg 5 mg, Oral, 3 TIMES DAILY, First dose on Mon05/30/22 at 1400, Until Discontinued, Do not give after 1800 or within 4 hrs of bedtime. 0754 (Given - Provider: Lisha Harrington RN)1412 (Given - Provider: Maria D Quinonez RN)2006 (Given - Provider: Susan Weeks RN) 1000 (Given - Provider: Gerardo Last RN)1429 (Given - Provider: Gerardo Last RN)2122 (Given - Provider: Juan Manuel Santos, SHA) 0813 (Given - Provider: Gerardo Last RN)141 (Given - Provider: Gerardo Last RN)2100 (Due) pantoprazole (PROTONIX) tablet 40 mg 40 mg, Oral, 2 times daily, First dose on Mon05/30/22 at 1345, Until Discontinued, Do not crush or break. 0754 (Given - Provider: Lisha Harrington RN)2006 (Given - Provider: Susan Weeks RN) 0959 (Given - Provider: Gerardo Last RN)211 (Given - Provider: Juan Manuel Santos, SHA) 0813 (Given - Provider: Gerardo Last RN)2100 (Due) polyethylene glycol (GLYCOLAX) packet 17 g 17 g, Oral, DAILY, First dose on Mon05/30/22 at 1115, Until Discontinued, Stir and dissolve one packet of powder (17 g) in any 4 to 8 ounces of beverage (cold, hot or room temperature) then drink 0754 (Given - Provider: Lisha Harrington RN) 0959 (Not Given - Provider: Gerardo Last RN - Reason: Patient/family refused) 0812 (Not Given - Provider: Gerardo Last RN - Reason: Contraindicated) pravastatin (PRAVACHOL) tablet 40 mg 40 mg, Oral, DAILY, First dose on Mon05/30/22 at 1330, Until Discontinued 0755 (Given - Provider: Lisha Harrington RN) 09 (Given - Provider: Gerardo Last RN) 08 (Given - Provider: Gerardo Last RN) pregabalin (LYRICA) capsule 150 mg 150 mg, Oral, 2 TIMES DAILY, First dose on Mon05/30/22 at 1345, Until Discontinued 0755 (Given - Provider: Lisha Harrington RN)2006 (Given - Provider: Susan Weeks, SHA) 09 (Given - Provider: Gerardo Last RN)2119 (Given - Provider: Juan Manuel Santos, SHA) 08 (Given - Provider: Gerardo Last RN)2100 (Due) risperiDONE (RISPERDAL) tablet 0.5 mg 0.5 mg, Oral, 2 TIMES DAILY, First dose on Mon05/30/22 at 1330, Until Discontinued 0754 (Given - Provider: Lisha Harrington RN)2006 (Given - Provider: Susan Weeks, SHA) 999 (Given - Provider: Gerardo Last RN)2120 (Given - Provider: Juan Manuel Santos, SHA) 08 (Given - Provider: Gerardo Last RN)2100 [...] mL/lumen 0759 (Given - Provider: Lisha Harrington RN)230 (Not Given - Provider: Susan Weeks RN - Reason: IV Fluid Infusing) 1000 (Given - Provider: Gerardo Last, RN)2120 (Given - Provider: Juan Manuel Santos, RN) 08 (Given - Provider: Gerardo Last RN)2099 (Due) traZODone (DESYREL) tablet 50 mg 50 mg, Oral, NIGHTLY, First dose on Mon05/30/22 at 2100, Until Discontinued 2006 (Given - Provider: Susan Weeks RN) 2118 (Given - Provider: Juan Manuel Santos, SHA) 2099 (Due) venlafaxine (EFFEXOR XR) extended release capsule [...] used. 181 (Given - Provider: Lisha Harrington, RN) ondansetron (ZOFRAN-ODT) disintegrating tablet 4 mg(Linked Group 1) 4 mg, Oral, EVERY 8 HOURS PRN, Starting on Mon05/30/22 at 1101, Until Discontinued, Nausea, Vomiting 181 (See Alternative - Provider: Lisha Harrington, SHA) oxyCODONE (ROXICODONE) immediate release tablet 2.5 mg(Linked Group 2) 2.5 mg, Oral, EVERY 4 HOURS PRN, Starting on Mon05/31/22 at 1424, Until Discontinued, Pain Moderate (4-6) 0446 (See Alternative - Provider: Walter Mckeon LPN)1412 (See Alternative - Provider: Maria D Quinonez RN)2006 (See Alternative - Provider: Susan Weeks RN) 147 (See Alternative - Provider: Donell Singh RN)0604 (See Alternative - Provider: Urvashi Garza, SHA)1008 (See Alternative - Provider: Gerardo Last, SHA) oxyCODONE (ROXICODONE) immediate release tablet 5 mg(Linked Group 2) 5 mg, Oral, EVERY 4 HOURS PRN, Starting on Mon05/31/22 at 1424, Until Discontinued, Pain Severe (7-10) 0446 (Given - Provider: Walter Mckeon LPN)1412 (Given - Provider: Maria D Quinonez RN)2006 (Given - Provider: Susan Weeks RN) 147 (Given - Provider: Donell Singh RN)0604 (Given [...] or cirrhosis. 1030 (Given - Provider: Paula Armstrong, SHA) busPIRone (Buspar) tablet 10 mg 10 mg, Oral, 3 times daily, First dose on Fariha 01/12/23 at 1700 1700 (Not Given - Provider: Shelby Vidal, RN - Reason: Medication not available)2023 (Given - Provider: Andre Mijares RN) 0815 (Given - Provider: Marjorie Carrillo RN)1440 (Given - Provider: Marjorie Carrillo RN) carBAMazepine (TEGretol) tablet 200 mg 200 mg, Oral, 3 times daily, First dose on Fariha 01/12/23 at 1700 1700 (Not Given - Provider: Shelby Vidal RN - Reason: Medication not available)2023 (Given - Provider: Andre Mijares RN) 08 (Given - Provider: Marjorie Carrillo RN)1440 (Given [...] Indication (Select all that apply): Surgical Prophylaxis 110 (Given - Provider: Isabel Howe APRN - ASSISTANT MANAGER PT) ceFAZolin Sodium 2,000 mg in sodium chloride [...] 1700, For 2 doses, Phase II/On Unit 173 (Given - Provider: Shelby Vidal RN) 11 (Given - Provider: Andre Mijares, SHA) enoxaparin (Lovenox) syringe 40 mg 40 mg, SubCUTAneous, Daily, First dose on Mon01/13/23 at 0900, For 15 days, Phase II/On Unit, Begin morning of POD 1 , Indication of Use: Prophylaxis-DVT/PE, Indications: Prophylaxis of Venous Thromboembolism 08 (Given - Provider: Marjorie Carrillo RN) famotidine (Pepcid) tablet 20 mg 20 mg, Oral, 2 times daily, First dose on Mon01/12/23 at 2100, Phase II/On Unit 2025 (Given - Provider: Andre Mijares, SHA) 0816 (Given - Provider: Marjorie Carrillo RN) famotidine (Pepcid) tablet 20 mg (COMPLETED) 20 mg, Oral, Once, On Mon01/12/23 at 1000, For 1 dose, Preprocedure 1030 (Given - Provider: Paula Armstrong, SHA) fludrocortisone (Florinef) tablet 0.1 mg 0.1 mg, Oral, Daily, First dose on Mon01/12/23 at 1700 1700 (Not Given - Provider: Sehlby Vidal RN - Reason: Medication not available) 0816 (Given - Provider: Marjorie Carrillo RN) levothyroxine (Synthroid, Levoxyl) tablet 150 mcg 150 mcg, Oral, Daily, First dose on Mon01/12/23 at 1800, Tube feeding (TF) interaction, obtain physician order to manage, recommend holding TF for 30 minutes before and after dose. 1800 (Not Given - Provider: Shelby Vidal RN - Reason: Contraindicated - Comment: pt took at home) 15 (Given - Provider: Marjorie Carrillo RN) Melatonin capsule 10 mg 10 mg, Oral, Nightly, First dose on Mon01/12/23 at 2100 2023 (Given - Provider: Andre Mijares, SHA) midodrine (Proamatine) tablet 5 mg 5 mg, Oral, 3 times daily, First dose on Mon01/12/23 at 1700 1700 (Not Given - Provider: Shelby Vidal RN - Reason: Medication not available)2099 (Not Given - Provider: Andre Mijares RN - Reason: Patient/family refused) 0816 (Given - Provider: Marjorie Carrillo, RN)1440 (Given - Provider: Marjorie Carrillo, RN) mirtazapine (Remeron) tablet 15 mg 15 mg, Oral, Daily, First dose on Fariha 01/12/23 at 1702024 (Given - Provider: Andre Mijares RN) Nozin Nasal Voucher Examiner Popswab 2 Swab (COMPLETED) 2 Swab (1 Package), Topical, Once, On Fariha 01/12/23 at 1000, For 1 dose, Preprocedure, Flip [...] after use. 1000 (Given - Provider: Paula Armstrong RN) pravastatin (Pravachol) tablet 40 mg 40 mg, Oral, Daily, First dose on Fariha 01/12/23 at 1702023 (Given - Provider: Andre Mijares, SHA) 0816 (Given - Provider: Marjorie Carrillo, RN) pregabalin (Lyrica) capsule 150 mg 150 mg, Oral, 2 times daily, First dose on Fariha 01/12/23 at 2099 2025 (Given - Provider: Andre Mijares, SHA) 0816 (Given - Provider: Marjorie Carrillo, RN) risperiDONE (RisperDAL) tablet 0.5 mg 0.5 mg, Oral, 2 times daily, First dose on Fariha 01/12/23 at 2099 2025 (Given - Provider: Andre Mijares, SHA) 0816 (Given - Provider: Marjorie Carrillo, RN) [...] day), First dose on Fariha 01/12/23 at 2100, Phase II/On Unit 2052 (Given - Provider: Andre Mijares RN) 0816 (Given - Provider: Marjorie Carrillo RN) traMADol (Ultram) tablet 50 mg 50 mg, Oral, Every 6 hours, First dose on Fariha 01/12/23 at 1530, Phase II/On Unit, Patient may refuse medication if they feel they do not need it. 1603 (Given - Provider: Shelby Vidal RN)203 (Given - Provider: Andre Mijares RN) 0314 (Given - Provider: Andre Mijares RN)0830 (Given - Provider: Marjorie Carrillo RN)1449 (Given - Provider: Marjorie Carrillo RN) traZODone (Desyrel) tablet 50 mg 50 mg, Oral, Nightly, First dose on Fariha 01/12/23 at 2100 2023 (Given - Provider: Andre Mijares RN) venlafaxine XR (Effexor XR) 24 hr [...] Armstrong RN)1051 (Continued by Anesthesia - Provider: Isabel Howe APRN - ASSISTANT MANAGER PT)1306 (Stopped - Provider: Isabel Howe, VACUUM CLEANER REPAIRER - ASSISTANT MANAGER PT) lactated Ringer's infusion (CANCELED) 125 mL/hr, IntraVENous, Continuous, Starting on Fariha 01/12/23 at 1315, Recovery (only) 1315 (New Bag - Provider: Bernard Lujan, RN)1544 (Stopped - Provider: Shelby Vidal, RN) ropivacaine (Naropin) 0.2 % elastomeric infusion 500 mL 500 mL, Infiltration, at 4 mL/hr, Continuous, Starting on Fariha 01/12/23 at 1315, Laterality: Right bolus-4ml. 30min lockout 1315 (New Bag - Provider: Bernard Lujan RN) sodium chloride 0.9 % infusion 125 mL/hr, IntraVENous, Continuous, Starting on Fariha 01/12/23 at 1530, Phase II/On Unit 1608 (New Bag - Provider: Shelby Vidal, RN) PRN Medication Order 01/11/2023 01/12/2023 01/13/2023 [...] hour of each other unless specifically ordered. 173 (See Alternative - Provider: Shelby Vidal RN)2158 [...] hour of each other unless specifically ordered. 173 (Given - Provider: Shelby Vidal RN)2158 (Given - Provider: Andre Mijares RN) HYDROmorphone [...] from blister pack until just before administering. 08 (Given - Provid er: Marjorie Carrillo RN) [...] Galina Nieves RN)2124 (Given - Provider: Anders Shahid, RN) 0900 (Given - Provider: Galina Nieves RN)1337 (Given - Provider: Galina Nieves RN)2031 (Given - Provider: Jose Roberto Samaniego RN) 0930 (Given - Provider: Galina Nieves RN)1329 (Given - Provider: Galina Nieves, RN) carBAMazepine (TEGretol) tablet 200 mg 200 mg, Oral, 3 times daily, First dose on Mon09/23/24 at 1700 0952 (Given - Provider: Galina Nieves RN)1805 (Given - Provider: Galina Nieves RN)2124 (Given - Provider: Anders Shahid, RN) 0838 (Given - Provider: Galina Nieves RN)1316 (Given - Provider: Galina Nieves RN)2031 (Given - Provider: Jose Roberto Samaniego RN) 0931 (Given - Provider: Galina Nieves RN)1330 (Given - Provider: Galina Nieves, RN) cefTRIAXone (Rocephin) 1,000 mg in sodium chloride 0.9 % 50 mL IVPB Mini-Bag Plus (CANCELED) 1,000 mg, IntraVENous, at 100 mL/hr, Administer over 30 Minutes, Every 24 hours, First dose on Mon09/24/24 at 1200, Mini-Bag Plus bag, Suspected Indication (Select all that apply): Pneumonia (CAP) 1205 (New Bag - Provider: Galina Fear, RN)1235 (Stopped - Provider: Galina Nieves RN) 1229 (New Bag - Provider: Galina Nieves RN)1259 (Stopped - Provider: Galina Nieves RN) clopidogrel (Plavix) tablet 75 mg 75 mg, Oral, Daily, First dose on Mon09/23/24 at 1700 0858 (Given - Provider: Galina Nieves RN) 0837 (Given - Provider: Galina Nieves, RN) 0930 (Given - Provider: Galina Nieves RN) enoxaparin (Lovenox) syringe 40 mg 40 mg, SubCUTAneous, Every 24 hours, First dose on Mon09/23/24 at 1600, Indication of Use: Prophylaxis-DVT/PE 1539 (Given - Provider: Galina Nieves RN) 1500 (Given - Provider: Galina Nieves RN) 1600 (Canceled Entry - Provider: Automatic Discharge Provider - Comment: Automatically canceled at discontinue of medication order) fludrocortisone (Florinef) tablet 0.1 mg 0.1 mg, Oral, Daily, First dose on Mon09/23/24 at 1700 0952 (Given - Provider: Galina Nieves RN) 0839 (Given - Provider: Galina Nieves RN) 0932 (Given - Provider: Galina Nieves RN) folic acid (Folvite) tablet 1 mg [...] split. 0858 (Given - Provider: Galina Nieves RN)4 (Given - Provider: Anders Shahid RN) 0837 (Given - Provider: Galina Nieves RN)2031 (Given - Provider: Jose Roberto Samaniego RN) 0930 (Given - Provider: Galina Nieves, RN) ipratropium-albuterol (Duo-Neb) 0.5-2.5 mg/3 mL nebulizer solution 3 mL 3 mL, Nebulization, 3 times daily, First dose on Mon09/23/24 at 2000 0757 (Given - Provider: Paula Tomlin)1317 (Given - Provider: Paula Tomlin)2037 (Given - Provider: Yaa Matthews RCP) 1003 (Given - Provider: Salome Hodge, RODRIGO)1320 (Given - Provider: Salome Hodge RRT) 0000 (Given - Provider: Miguel Moon, RODRIGO)0920 (Given - Provider: Paula Tomlin)1315 (Given - [...] Nieves RN) 0502 (Given - Provider: Anders Shahid, RN)1459 (Given - Provider: Galina Nieves RN) [...] Nightly, First dose on Mon09/23/24 at 2100 2124 (Given - Provider: Anders Shahid, RN) 2032 (Given - Provider: Jose Roberto Samaniego, RN) pregabalin (Lyrica) capsule 150 mg 150 mg, Oral, 2 times daily, First dose on Mon09/24/24 at 2100 0858 (Given - Provider: Galina Nieves RN)212 (Given - Provider: Anders Shahid, RN) 0837 (Given - Provider: Galina Nieves RN)2032 (Given - Provider: Jose Roberto Samaniego RN) 0930 (Given - Provider: Galina Nieves RN) risperiDONE (RisperDAL) tablet 0.5 mg 0.5 mg, Oral, 2 times daily, First dose on Mon09/24/24 at 2100, Indications: bipolar one disorder 0859 (Given - Provider: Galina Nieves RN)2123 (Given - Provider: Anders Shahid, RN) 0839 (Given - Provider: Galina Nieves RN)2032 (Given - Provider: Jose Roberto Samaniego RN) 0931 (Given - Provider: Galina Nieves [...] 24 hours. 1337 (See Alternative - Provider: Galina Nieves RN)2159 (See Alternative - Provider: Jose [...] Nieves RN)1033 (See Alternative - Provider: Galina Fear, RN) polyethylene glycol (PEG) 3350 (Miralax) packet 17 g 17 g, Oral, Daily PRN, constipation, Starting on Mon09/23/24 at 1456, 1st line for treatment of constipation - give scheduled if no bowel movement in past 24 hours. stomahesive in petrolatum (ET Mix) Topical, PRN, dry skin, Starting on Fariha 09/26/24 at 0913 1231 (Given - Provider: Galina Nieves, RN) Linked Groups Order Group 1: acetaminophen [...] Status Dates Kianna Izquierdo Attending Provider Active Magazine Filler Relationship Specialty Start Date End Date Kianna Izquierdo MD PCP - General Internal Medicine 08/25/20 Magazine Filler Relationship Specialty Start Date End Date Kianna Izquierdo MD PCP - General Internal Medicine 08/25/20 Magazine Filler Relationship Specialty Start Date End Date Kianna Izquierdo MD PCP - General Internal Medicine 08/25/20 Magazine Filler Relationship Specialty Start Date End Date Kianna Izquierdo MD PCP - General Internal Medicine 08/25/20 Magazine Filler Relationship Specialty Start Date End Date iKanna Izquierdo MD PCP - General Internal Medicine 08/25/20 Magazine Filler Relationship Specialty Start Date End Date Kianna Izquierdo MD [address] [place], [place] [phone] PCP - General Internal Medicine 05/30/22 Magazine Filler Relationship Specialty Start Date End Date Kianna Izquierdo [address] [place] [phone] PCP - General 05/30/22 Kianna Izquierdo [address] [place] [phone] 05/30/22 Magazine Filler Relationship Specialty Start Date End Date Kianna Izquierdo[address] [place] [phone] PCP - General 05/30/22 Kianna Izquierdo [address] [place] [phone] 05/30/22 Magazine Filler Relationship Specialty Start Date End Date Kianna Izquierdo [address] [place] [phone] PCP - General 05/30/22 Kianna Izquierdo [address] [place] [phone] 05/30/22 Aaron Negro RN Nurse Navigator Orthopedic Surgery 12/22/2204/14/23 Magazine Filler Relationship Specialty Start Date End Date Kianna Izquierdo [address] [place] [phone] PCP - General 05/30/22 Kianna Izquierdo [address] [place] [phone] 05/30/22 Aaron Negro RN Nurse Navigator Orthopedic Surgery 12/22/2204/14/23 Magazine Filler Relationship Specialty Start Date End Date Kianna Izquierdo [address] [place] [phone] PCP - General 05/30/22 Kianna Izquierdo [address] [place] [phone] 05/30/22 Aaron Negro RN Nurse Navigator Orthopedic Surgery 12/22/2204/14/23 Almas Laureano MD [facility] [address] [place] [id number] Orthopedic Surgery 01/13/23 04/14/23 Magazine Filler Relationship Specialty Start Date End Date Kianna Izquierdo [address] [facility] [address] [place] [phone] PCP - General 05/30/22 Kianna Izquierdo [address] [place] [phone] 05/30/22 Aaron Negro RN Nurse Navigator Orthopedic Surgery 12/22/2204/14/23 Almas Laureano MD [address] [facility] [address] [place], [place] [phone] Orthopedic Surgery 01/13/23 04/14/23 Magazine Filler Relationship Specialty Start Date End Date Kianna Izquierdo [address] [place] [phone] PCP - General 05/30/22 Kianna Izquierdo [address] [place] [phone] 05/30/22 Aaron Negro RN Nurse Navigator Orthopedic Surgery 12/22/2204/14/23 Almas Laureano MD [address] [facility] [address] [place], [place] [phone] Orthopedic Surgery 01/13/23 04/14/23 Magazine Filler Relationship Specialty Start Date End Date Kianna Izquierdo [address] [place] [phone] PCP - General 05/30/22 Kianna Izquierdo [address] [place] [phone] 05/30/22 Aaorn Negro RN Nurse Navigator Orthopedic Surgery 12/22/2204/14/23 Almas Laureano MD [address] [facility] [address] [place] [address] Orthopedic Surgery 01/13/23 04/14/23 Magazine Filler Relationship Specialty Start Date End Date Kianna Izquierdo [address] [place] [phone] PCP - General 05/30/22 Kianna Izquierdo [address] [place] [phone] 05/30/22 Aaron Negro RN Nurse Navigator Orthopedic Surgery 12/22/2204/14/23 Almas Laureano MD [address] [facility] [address] [place] [address] Orthopedic Surgery 01/13/23 04/14/23 Magazine Filler Relationship Specialty Start Date End Date Kianna Izquierdo [address] [place] [phone] PCP - General 05/30/22 Kianna Izquierdo [address] [place] [phone] 05/30/22 Magazine Filler Relationship Specialty Start Date End Date Kianna Izquierdo [address] [place] [phone] PCP - General 05/30/22 Kianna Izquierdo [address] [place] [phone] 05/30/22 Magazine Filler Relationship Specialty Start Date End Date Kianna Izquierdo [address] [place] [phone] PCP - General 05/30/22 Kianna Izquierdo [address] [place] [phone] 05/30/22 Magazine Filler Relationship Specialty Start Date End Date Kianna Izquierdo [address] [place] [phone] PCP - General 05/30/22 Kianna Izquierdo [address] [place] [phone] 05/30/22 Magazine Filler Relationship Specialty Start Date End Date Kianna Izquierdo [address] [place], [place] [phone] PCP - General 05/30/22 Kianna Izquierdo [address] [place] [phone] 05/30/22 Magazine Filler Relationship Specialty Start Date End Date Kianna Izquierdo [address] [place] [phone] PCP - General 05/30/22 Kianna Izquierdo [address] [place] [address] 05/30/22 Magazine Filler Relationship Specialty Start Date End Date Kianna Izquierdo [address] [place] [phone] PCP - General 05/30/22 Kianna Izquierdo [address] [place] [address] 05/30/22 Magazine Filler Relationship Specialty Start Date End Date Ria Longoria MD [address] [place] [phone] PCP - General Hospitalist 09/23/24 Team Status: [...] September 30, 2024 End: September 30, 2024 Magazine Filler Relationship Specialty Start Date End Date Ria Longoria MD [address] [place] [phone] PCP - General Hospitalist 09/23/24 Kianna Izquierdo [address] [place] [phone] 09/23/24 Kianna Izquierdo [address] [place] [phone] 05/30/22 Magazine Filler Relationship Specialty Start Date End Date Ria Longoria MD [address] [place] [phone] PCP - General Hospitalist 09/23/24 Kianna Izquierdo [address] [place] [address] 09/23/24 Kianna Izquierdo [address] [place] [address] 05/30/22 Reason for Visit (unrecogniz ed section and content) Reason Comments Fall Pt found down this a m in facility brought in by EMS.. Team Specialty Diagnoses / Procedures Referred By Ksenia cordova Referred To Contact Diagnoses Unilateral primary osteoarthritis, right knee Unilateral primary osteoarthritis, right knee [M17.11] Procedures IA ARTHRP KNE CONDYLE&PLATU MEDIAL&LAT COMPARTMENTS Right Total Knee Arthroplasty Almas Laureano MD [address] [facility] [address] [place] [address] [facility] [address] [place] [address] Referral ID Status Reason Start Date Expiration Date Visits Re quested Visits Authorized [id number] 1 Reason Onset Date Comments Advice Only 01/16/2023 Reason Comments Post-op IPO: Rt TKA . 3 Reason Comments Follow-up Rt TKA . Reason Comments Follow-up FU right hip Specialty Diagnoses / Procedures Referred By Ksenia cordova Referred To Contact Radiology Diagnoses Right hip pain Procedures MR hip right wo Almas Laureano [facility] [address] [place] [address] Referral ID Status Reason Start Date Expiration Date V isits Requested Visits Authorized [id number] Authorized 09/13/2023 09/12/2024 1 1 Reason Onset [...] Procedures j18.9 Lashon Sullivan MD [address] [place] [address] Phone: tel: fax: [facility] Observation Unit [address] [place] [phone] Phone: tel: Referral ID Status Reason Start Date Expiration Date Visits Re quested Visits Authorized [id number] 1 1 Reason Comments Follow-up Low Back [...] BE BASED ON THE PRIMARY CLINICAL RECORDS. [employer] provides no warranty or guarantee of the accuracy or completeness of information in this document.
[2025-07-07 08:17] LABS: Hematocrit 38.0 % (37-47); Hemoglobin 12.5 g/dL (12.0-15.0); Mean Corp Hgb Conc 32.9 g/dL (32-36); Mean Corpuscular Volume 95.2 fL (81-99); Mean Platelet Vol. 10.7 fl (6.2-12.0); Platelet Count 217 K/mm3 (150-450); RBC Distribution Width CV 12.8 % (11.6-14.6); RBC Distribution Width SD 45.2 fl (35.1-43.9); Red Blood Count 3.99 M/mm3 (4.2-5.4); White Blood Count 6.6 K/mm3 (4.4-11.0)
[2025-07-07 08:30] LABS: Magnesium 2.2 mg/dL (1.5-2.2)
[2025-07-07 08:31] LABS: Anion Gap 10 (5-15); BUN 11 mg/dL (4-19); BUN/Creat Ratio 14.6 RATIO (10-20); Calcium,Total 9.0 mg/dL (7.6-11.0); Carbon Dioxide 27.0 mmol/L (21.0-32.0); Chloride 103 mmol/L (98-108); Glucose 91 mg/dL (70-99); Potassium 4.0 mmol/L (3.3-5.1)
== END ==
LOC: OLS.SANC 05:00
PROVIDERS: Visit Provider Internal Medicine
DX: J44.9 Chronic obstructive pulmonary disease, unspecified (principal); E03.9 Hypothyroidism, unspecified; E83.42 Hypomagnesemia
CPT/HCPCS: 36415; 80048; 83735; 85027

== ENCOUNTER → 2025-07-25 05:00 | Outpatient (REF) | payer MEDICARE, MEDICAID, SELFPAY ==
--- OUTSIDE RECORDS SUMMARY | 2025-07-25 04:19 | XMS RPT_ITS | CCD ---
Author Organization [facility] Care Team Providers Care Hardboard Grinder Name Role Phone Kianna Izquierdo Primary Care [...] Almas Unavailable Kianna Izquierdo Primary Care Provider [phone] Kianna Izquierdo Unavailable Ria Longoria MD Primary Care Provider [phone] IRA LONGORIA Primary Care Unavailable LASHON SULLIVAN Admitting [...] Katsavictor m OLS, Kianna Attending Unavailable Ramon SALVAODR, Kianna Attending Unavailable Ramon SALVADOR, Kianna Attending [...] 21 Nausea And Vomiting [facility] Work Phone: [phone] (20 sources) SUMAtriptan Drug Allergy 10-06-19 [...] (12 sources) salicylamide Drug Allergy 07-23-20 23 [facility] (5 sources) Sulfonamides (Antibiotic) Propensity to adverse reactions 09-23-19 25 [facility] [employer] NEGATED: Highlighted row has been ruled out! [...] mouth once cholecalciferol (Vitamin D-3) 1.25 MG (44867 UT) capsule Indications: Vitamin D Deficiency Take by mouth. Active take 1 tablet by mouth every we k cholecalciferol (Vitamin D3) 1.25 MG (61245 UT) tablet Take 50,000 Units by mouth 1 (one) time per week. Active cholecalciferol (Vitamin D-3) 1.25 MG (64308 UT) capsule Indications: Vitamin D Deficiency Take by mouth. 0 Active cholecalciferol (Vitamin D-3) 1.25 MG (53826 UT) capsule Take by mouth. 0 Active Cholecalciferol (VITAMIN D3) 1.25 MG (42315 UT) CAPS Take by mouth once a [...] every week ergocalciferol (Vitamin D-2) 1.25 MG (87908 UT) capsule Take 50,000 Units by mouth 1 (one) time per week. 0 06/10/2022 Active Start: 06-10-2022 take 1 capsule by mo uth every week Ergocalciferol (VITAMIN D) 07001 units CAPS Take 50,000 Units by mouth once a week 5 capsule 0 06/10/2022 Active Start: 06-03-2022 vitamin D (ERG OCALCIFEROL) capsule 50,000 Units Start: 01-21-2022 take 07492 [IU] by m outh every week 50,000 [...] as needed (anxiety). 0 07/25/2023 Active sennosides, prison 8.6 mg oral tablet (1 source) Start: [...] sodium chloride 0.9 % 250 mL IVPB (ADD-Atwood) (2 sources) Start: 09-23-2024 End: 09-23-2024 500 mg, IntraVENous, Administer over 60 Minutes, Once, On Mon09/23/24 at 1135, For 1 dose, ADD-Atwood bag, Suspected Indication (Select all that apply): [...] 01-12-2023 End: 01-12-2023 dexAMETHasone (Decadron) inj ection zfjKYSTJylehd-hxcubatznsd-qz inephrine (TAP) syringe (1 source) Start: 01-12-2023 End: 01-12-2023 dccTARJHzjwur-upjlhtclznd-iy inephrine (TAP) syringe diphenhydrAMINE (BENADryl) tablet/capsule 25 [...] docusate sodium 50 mg / elizabeth osides, prison 8.6 mg oral tablet (2 sources) Start: [...] sources) Start: 01-12-2023 End: 01-12-2023 Nozin Nasal Ship Keeper Popswab 2 Swab levothyroxine sodium 0.075 mg [...] 10 mg by mouth at bedtime G CLOSING MANAGER MELATONIN PO Take 10 mg by mouth [...] (Pressors) 1 MG/10ML injection polyethylene glycol 3350 94585 mg powder for oral solution (3 sources) [...] Start: 01-12-2023 End: 01-13-2023 5-250 mL/hr, IntraVENous, CA N, if patient receiving piggyback infusions and [...] 09-27-2024 Topical, PRN, dry skin, Starting on [facility] 09/26/24 at 0913 therapeutic multivitamin-mine rals (Theragran-M) tablet (2 sources) End: 09-27-2024 take 1 tablet by mouth once daily therapeutic multivitamin-production miner als (Theragran-M) tablet Take 1 tablet [...] 02-25-2025 02-25-2025 Episodic Other aftercare (4 sources) 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/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 platelets; Translations: [shelter (current) use of 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/anti platelets] Onset: 01-18-2022 Episodic Other aftercare (2 sources) Encounter for palliative care; Translations: [Encounter for palliative care] Onset: 05-30-2022 Episodic Other aftercare (2 sources) rat exterminator (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) use of inhaled steroids; Translations: [shelter (current) use of inhaled steroids] Onset: 05-30-2022 Episodic Other aftercare (2 sources) rat exterminator (current) use of systemic steroids; Translations: [shelter (current) use of systemic steroids] Onset: 05-30-2022 Episodic Other aftercare (2 sources) shelter (current) use of opiate analgesic; Translations: [shelter (current) use of opiate analgesic] Onset: 05-30-2022 Episodic Other aftercare (4 sources) Other fci (current) drug therapy; Translations: [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, [address] Calcium [Mass/Vol] 9.1 mg/dL Normal 7.6-11.0 [facility] Comment on above: Order Comment: 104-2 Performed By: #### L 501.7900, L501.9520 #### [facility] [address] [place], [address] Chloride [Moles/Vol] 104 mmol/L Normal 98-108 [facility] Comment on above: Order Comment: 104-2 Performed By: #### L 501.7900, L501.9520 #### [facility] [address] [place], [address] CO2 [Moles/Vol] 29.7 mmol/L Normal 21.0-32.0 [facility] Comment on above: Order Comment: 104-2 Performed By: #### L 501.7900, L501.9520 #### [facility] [address] [place], [address] Creatinine [Mass/Vol] 0.68 mg/dL Low 0.70-1.20 [facility] Comment on above: Order Comment: 104-2 Performed By: #### L 501.7900, L501.9520 #### [facility] [address] [place], [address] GAP 8 Normal 5-15 [facility] Comment on above: Order Comment: 104-2 Performed By: #### L 501.7900, L501.9520 #### [facility] [address] [place], [address] GFR/1.73 sq M.predicted among non-blacks MDRD (S/P/Bld) [Vol rate/Area] 91 mL/min/{1.73_m2} Normal >60 [facility] Comment on above: Order Comment: 104-2 Result Comment: mL/m in/1.73m2 CKD-EPI Creatinine Equation (2020) Performed By: #### L 501.7900, L501.9520 #### [facility] [address] [place], [address] Glucose [Mass/Vol] 85 mg/dL Normal 70-99 [facility] Comment on above: Order Comment: 104-2 Performed By: #### L 501.7900, L501.9520 #### [facility] [address] [place], [address] Potassium [Moles/Vol] 3.3 mmol/L Normal 3.3-5.1 [facility] Comment on above: Order Comment: 104-2 Performed By: #### L 501.7900, L501.9520 #### [facility] [address] [place], [address] Sodium [Moles/Vol] 142 mmol/L Normal 133-145 [facility] Comment on above: Order Comment: 104-2 Performed By: #### L 501.7900, L501.9520 #### [facility] [address] [place], [address] Urea nitrogen [Mass/Vol] 9 mg/dL Normal 4-19 [facility] Comment on above: Order Comment: 104-2 Performed By: #### L 501.7900, L501.9520 #### [facility] [address] [place], [address] CBC-Complete Blood Cnt No Di ffon 06-25-2025 Erythrocyte distribution width (RBC) [Ratio] 13.1 % Normal 11.6-14.6 [facility] Comment on above: Order Comment: 104-2 Performed By: #### L 501.7900, L501.9520 #### [facility] [address] [place], [address] Hematocrit (Bld) [Volume fraction] 34.2 % Low 37-47 [facility] Comment on above: Order Comment: 104-2 Performed By: #### L 501.7900, L501.9520 #### [facility] [address] [place], [address] Hemoglobin (Bld) [Mass/Vol] 11.6 g/dL Low 12.0-15.0 [facility] Comment on above: Order Comment: 104-2 Performed By: #### L 501.7900, L501.9520 #### [facility] [address] [place], [address] MCH (RBC) [Entitic mass] 31.3 pg Normal 27.0-32.0 [facility] Comment on above: Order Comment: 104-2 Performed By: #### L 501.7900, L501.9520 #### [facility] [address] [place], [address] MCHC (RBC) [Mass/Vol] 33.9 g/dL Normal 32-36 [facility] Comment on above: Order Comment: 104-2 Performed By: #### L 501.7900, L501.9520 #### [facility] [address] [place], [address] MCV (RBC) [Entitic vol] 92.2 fL Normal 81-99 [facility] Comment on above: Order Comment: 104-2 Performed By: #### L 501.7900, L501.9520 #### [facility] [address] [place], [address] Platelet mean volume (Bld) [Entitic vol] 10.3 fL Normal 6.2-12.0 [facility] Comment on above: Order Comment: 104-2 Performed By: #### L 501.7900, L501.9520 #### [facility] [address] [place], [address] Platelets (Bld) [#/Vol] 200 10*3/uL Normal 150-450 [facility] Comment on above: Order Comment: 104-2 Performed By: #### L 501.7900, L501.9520 #### [facility] [address] [place], [address] RBC (Bld) [#/Vol] 3.71 10*6/uL Low 4.2-5.4 [facility] Comment on above: Order Comment: 104-2 Performed By: #### L 501.7900, [id number] #### [facility] [address] [place], [address] RDW SD 44.5 fl High 35.1-43.9 [facility] Comment on above: Order Comment: 104-2 Performed By: #### L 501.7900, [id number] #### [facility] [address] [place], [address] WBC (Bld) [#/Vol] 5.0 10*3/uL Normal 4.4-11.0 [facility] Comment on above: Order Comment: 104-2 Performed By: #### L 501.7900, L501.9520 #### [facility] [address] [place], [address] Carbamazepine (Tegretol)on 1 08-25-2024 CARBAMAZEPINE 7.6 ug/mL Normal 4.0-12.0 [facility] Comment on above: Order Comment: 104-2 Performed By: #### L 501.7900, L501.9520 #### [facility] [address] [place], [address] Lipid Profileon 06-25-2025 CHOL:HDL 3.18 Normal [facility] Comment on above: Order Comment: 104-2 Performed By: #### L 501.7900, [id number] #### [facility] [address] [place], [address] Cholesterol [Mass/Vol] 141 mg/dL Normal <=200 [facility] Comment on above: Order Comment: 104-2 Result Comment: Chol esterol level, Desirable <200 mg/dL Borderline high cholesterol 200-239 mg/dL High cholesterol >=240 mg/dL Recommendations of the NCEP Adult Treatment Panel for the following risk-cutoff thresholds for the [place] Filipino population. Performed By: #### L 501.7900, L501.9520 #### [facility] [address] [place], [address] Cholesterol in HDL [Mass/Vol] 44 mg/dL Normal [facility] Comment on above: Order Comment: 104-2 Result Comment: Sandra onal Cholesterol Education Program (NCEP) guidelines: <40 mg/dL: Low HDL-cholesterol (major risk factor for CHD) >= 60 mg/dL: High HDL-cholesterol (negative risk factor for CHD) HDL-cholesterol is affected by a number of factors, e.g. smoking, exercise, hormones, sex and age. Performed By: #### L 501.7900, L501.9520 #### [facility] [address] [place], [address] Cholesterol in LDL [Mass/Vol] 81 mg/dL Normal [facility] Comment on above: Order Comment: 104-2 Result Comment: Bord aebjbv=683-576 mg/dL Higher Cbrj=131 mg/dL or greater Fishman Equation 2020 for LDL-C Performed By: #### L 501.7900, L501.9520 #### [facility] [address] [place], [address] Cholesterol in VLDL [Mass/Vol] 16 mg/dL Normal 5-40 [facility] Comment on above: Order Comment: 104-2 Performed By: #### L 501.7900, L501.9520 #### [facility] [address] [place], [address] Triglyceride [Mass/Vol] 82 mg/dL Normal [facility] Comment on above: Order Comment: 104-2 Result Comment: The drugs N-Acetylcysteine and Metamizole may falsely depress this assay. Normal range: <150 mg/dL Borderline High: 150-199 mg/dL High: 200-499 mg/dL Very High: >500 mg/dL Performed By: #### L 501.7900, L501.9520 #### [facility] [address] [place], [address] Thyroid Stim Hormone (TSH)on 06-25-2025 TSH 0.399 uIU/mL Normal 0.300-4.200 [facility] Comment on above: Order Comment: 104-2 Performed By: #### L 501.7900, L501.9520 #### [facility] [address] [place], [address] Carbamazepine (Tegretol)on 1 CARBAMAZEPINE 6.1 ug/mL Normal 4.0-12.0 [facility] Comment on above: Order Comment: 104-2 Performed By: #### L 501.7900, L501.9520 #### [facility] [address] [place], [address] Thyroid Stim Hormone (TSH)on 05-14-2025 TSH 6.900 uIU/mL High 0.300-4.200 [facility] Comment on above: Order Comment: 104-2 Performed By: #### L 501.7900, L501.9520 #### [facility] [address] [place], [address] Carbamazepine (Tegretol)on 0 05-09-2025 CARBAMAZEPINE 5.1 ug/mL Normal 4.0-12.0 [facility] Comment on above: Order Comment: 104-2 Performed By: #### L 501.9520, L501.7900 #### [facility] [address] [place], [address] Thyroid Stim Hormone (TSH)on 05-09-2025 TSH 4.720 uIU/mL High 0.300-4.200 [facility] Comment on above: Order Comment: 104-2 Performed By: #### L 501.9520, L501.7900 #### [facility] [address] [place], [address] Urine Cultureon 04-27-2025 URC #2 Below infection level. Urine Culture Proteus mirabilis Nichols Count 25,000-50,000 Mixed Gram Positive Organisms Mixed [...] TMP SMX Islt LELA <=20 S Normal [facility] Comment on above: Performed By: #### L 400.0001, M100.2200 #### [facility] [address] [place], [address] Urinalysis, Completeon 04-25 AMORPHOUS 4+ URATE Normal [facility] Comment on above: Order Comment: CLEAN CATCH Performed By: #### L 400.0001, M100.2200 #### [facility] [address] [place], [address] RBC 0-5 SEEN Normal 0-5 [facility] Comment on above: Order Comment: CLEAN CATCH Performed By: #### L 400.0001, M100.2200 #### [facility] [address] [place], [address] WBC 50-100 SEEN Normal 0-5 [facility] Comment on above: Order Comment: CLEAN CATCH Performed By: #### L 400.0001, M100.2200 #### [facility] [address] [place], [address] BACTERIA 0 SEEN Normal None Seen [facility] Comment on above: Order Comment: CLEAN CATCH Performed By: #### L 400.0001, M100.2200 #### [facility] [address] [place], [address] EPI,SQUAMOUS 0 SEEN Normal 5-10 [facility] Comment on above: Order Comment: CLEAN CATCH Performed By: #### L 400.0001, M100.2200 #### [facility] [address] [place], [address] Mucus Ql (Urine sed) 0 SEEN Normal [facility] Comment on above: Order Comment: CLEAN CATCH Performed By: #### L 400.0001, M100.2200 #### [facility] [address] [place], [address] Office Visiton 02-25-2025 Follow-up visit [id number] Andre Blanca 1950 F Date Provider Department Center 02/25/2025 [id number]-[id number] ESPINOZA [facility] SM WAD None Family History Problem Relation Age of Onset Emphysema Father Alcohol abuse Mother Family Status - Relation Status Age at Father Mother Level of Service:56526 CA OFFICE/OUTPATIENT NEW LOW MDM 30 MINUTES Reason for Visit and Comments: Follow-up [205372] - Low Back Pain Normal [facility] Progress Noteon 02-25-2025 Progress Note [facility] [address] [place] [address] [place] [address] Dept: [phone] Dept Chief Complaint Patient presents with Follow-up [...] exercises given. and an outside facility - residential. -Written patient information provided in the AVS. -Reasons to call or return discussed (more content not included)... Normal [facility] Basic Metabolic Profile (BMP )on 09-30-2024 BUN/CRE 11.1 RATIO Normal 10-20 [facility] Comment on above: Order Comment: 104-2 Performed By: #### L 100.0500, L500.2500 #### [facility] [address] [place], [address] CA,Total 9.1 mg/dL Normal 8.5-10.1 [facility] Comment on above: Order Comment: 104-2 Performed By: #### L 100.0500, L500.2500 #### [facility] [address] [place], [address] Chloride [Moles/Vol] 100 mmol/L Normal 98-107 [facility] Comment on above: Order Comment: 104-2 Performed By: #### L 100.0500, L500.2500 #### [facility] [address] [place], [address] CO2 [Moles/Vol] 33.0 mmol/L High 21.0-32.0 [facility] Comment on above: Order Comment: 104-2 Performed By: #### L 100.0500, L500.2500 #### [facility] [address] [place], [address] Creatinine [Mass/Vol] 0.63 mg/dL Normal 0.55-1.02 [facility] Comment on above: Order Comment: 104-2 Result Comment: The validity of the calculated GFR GFRAA in patients over 70 years has not been determined. Clinical correlation is essential. Performed By: #### L 100.0500, L500.2500 #### [facility] [address] [place], [address] EST GFR - AA 118 mL/min Normal >60 [facility] Comment on above: Order Comment: 104-2 Result Comment: Afri can Filipino GFR Calc Performed By: #### L 100.0500, L500.2500 #### [facility] [address] [place], [address] GAP 6 Normal 5-15 [facility] Comment on above: Order Comment: 104-2 Performed By: #### L 100.0500, L500.2500 #### [facility] [address] [place], [address] GFR/1.73 sq M.predicted among non-blacks MDRD (S/P/Bld) [Vol rate/Area] 98 mL/min/{1.73_m2} Normal >60 [facility] Comment on above: Order Comment: 104-2 Result Comment: Non- GFR Calc Performed By: #### L 100.0500, L500.2500 #### [facility] [address] [place], [address] Glucose [Mass/Vol] 111 mg/dL High 74-106 [facility] Comment on above: Order Comment: 104-2 Result Comment: Fast ing Glucose result from 100 to 125 mg/dL suggests IMPAIRED HOMEOSTASIS per A.D.A. criteria. Performed By: #### L 100.0500, L500.2500 #### [facility] [address] [place], [address] Potassium [Moles/Vol] 3.0 mmol/L Low 3.5-5.1 [facility] Comment on above: Order Comment: 104-2 Result Comment: Slig ht Hemolysis, Result may be falsely increased. Performed By: #### L 100.0500, L500.2500 #### [facility] [address] [place], [address] Sodium [Moles/Vol] 139 mmol/L Normal 136-145 [facility] Comment on above: Order Comment: 104-2 Performed By: #### L 100.0500, L500.2500 #### [facility] [address] [place], [address] Urea nitrogen [Mass/Vol] 7 mg/dL Normal 7-18 [facility] Comment on above: Order Comment: 104-2 Performed By: #### L 100.0500, L500.2500 #### [facility] [address] [place], [address] Blood urea nitrogen (BUN)/cr eatinine ratioOrdered By: Kianna Izquierdo on 09-30-2024 Urea nitrogen/Creatinine [Mass ratio] 11.1 mg/mg 10-20 [facility] CBC-Complete Blood Cnt No Di ffon 09-30-2024 Erythrocyte distribution width (RBC) [Ratio] 12.9 % Normal 11.6-14.6 [facility] Comment on above: Order Comment: 104-2 Performed By: #### L 100.0500, L500.2500 #### [facility] [address] [place], [address] Hematocrit (Bld) [Volume fraction] 36.4 % Low 37-47 [facility] Comment on above: Order Comment: 104-2 Performed By: #### L 100.0500, L500.2500 #### [facility] [address] [place], [address] Hemoglobin (Bld) [Mass/Vol] 11.3 g/dL Low 12.0-15.0 [facility] Comment on above: Order Comment: 104-2 Performed By: #### L 100.0500, L500.2500 #### [facility] [address] [place], [address] MCH (RBC) [Entitic mass] 30.0 pg Normal 27.0-32.0 [facility] Comment on above: Order Comment: 104-2 Performed By: #### L 100.0500, L500.2500 #### [facility] [address] [place], [address] MCHC (RBC) [Mass/Vol] 31.0 g/dL Low 32-36 [facility] Comment on above: Order Comment: 104-2 Performed By: #### L 100.0500, L500.2500 #### [facility] [address] [place], [address] MCV (RBC) [Entitic vol] 96.6 fL Normal 81-99 [facility] Comment on above: Order Comment: 104-2 Performed By: #### L 100.0500, L500.2500 #### [facility] [address] [place], [address] Platelet mean volume (Bld) [Entitic vol] 9.6 fL Normal 6.2-12.0 [facility] Comment on above: Order Comment: 104-2 Performed By: #### L 100.0500, L500.2500 #### [facility] [address] [place], [address] Platelets (Bld) [#/Vol] 381 10*3/uL Normal 150-450 [facility] Comment on above: Order Comment: 104-2 Performed By: #### L 100.0500, L500.2500 #### [facility] [address] [place], [address] RBC (Bld) [#/Vol] 3.77 10*6/uL Low 4.2-5.4 [facility] Comment on above: Order Comment: 104-2 Performed By: #### L 100.0500, L500.2500 #### [facility] [address] [place], [address] RDW SD 46.2 fl High 35.1-43.9 [facility] Comment on above: Order Comment: 104-2 Performed By: #### L 100.0500, L500.2500 #### [facility] [address] [place], [place], [address] WBC (Bld) [#/Vol] 8.1 10*3/uL Normal 4.4-11.0 [facility] Comment on above: Order Comment: 104-2 Performed By: #### L 100.0500, L500.2500 #### [facility] [address] [place], [place], [address] Carbon dioxide measurementOr dered By: Kianna Izquierdo on 09-30-2024 CO2 [Moles/Vol] 33.0 mmol/L High 21.0-32.0 [facility] Chloride measurementOrdered By: Kianna Izquierdo on 09-30-2024 Chloride [Moles/Vol] 100 mmol/L 98-107 [facility] Erythrocyte distribution wid th ratioOrdered By: Kianna Izquierdo on 09-30-2024 Erythrocyte distribution width (RBC) [Ratio] 12.9 % 11.6-14.6 [facility] Erythrocyte distribution wid th standard deviationOrdered By: Kianna Izquierdo on 09-30-2024 Erythrocyte distribution width (RBC) [Entitic vol] 46.2 fL High 35.1-43.9 [facility] Estimated glomerular filtrat ion rate (GFR) AmericanOrdered By: Kianna Izquierdo on 09-30-2024 Estimated GFR (MDRD) Amer 118 mL/min >60 [facility] Comment on above: GFR Calc Glomerular filtration rate ( GFR) estimationOrdered By: Kianna Izquierdo on 09-30-2024 Estimated GFR (MDRD) Non-Af Amer 98 mL/min >60 [facility] Comment on above: Non- GFR Calc Glucose measurementOrdered B y: Kianna Izquierdo on 09-30-2024 Glucose [Mass/Vol] 111 mg/dL High 74-106 [facility] Comment on above: Fasting Glucose resu lt from 100 to 125 mg/dL suggests IMPAIRED HOMEOSTASIS per A.D.A. criteria. Hematocrit Auto (Bld) [Volum e fraction]Ordered By: Kianna Izquierdo on 09-30-2024 Hematocrit (Bld) [Volume fraction] 36.4 % Low 37-47 [facility] Hemoglobin measurementOrdere d By: Kianna Izquierdo on 09-30-2024 Hemoglobin (Bld) [Mass/Vol] 11.3 g/dL Low 12.0-15.0 [facility] MCV (mean corpuscular volume ) determinationOrdered By: Kianna Izquierdo on 09-30-2024 MCV (RBC) [Entitic vol] 96.6 fL 81-99 [facility] Mean corpuscular hemoglobin (MCH) determinationOrdered By: Kianna Izquierdo on 09-30-2024 MCH (RBC) [Entitic mass] 30.0 pg 27.0-32.0 [facility] Mean corpuscular hemoglobin concentration (MCHC) determinationOrdered By: Kianna Izquierdo on 09-30-2024 MCHC (RBC) [Mass/Vol] 31.0 g/dL Low 32-36 [facility] Mean platelet volume determi nationOrdered By: Kianna Izquierdo on 09-30-2024 Platelet mean volume (Bld) [Entitic vol] 9.6 fL 6.2-12.0 [facility] Platelet countOrdered By: Doc Deras on 09-30-2024 Platelets (Bld) [#/Vol] 381 10*3/uL 150-450 [facility] Potassium measurementOrdered By: Kianna Izquierdo on 09-30-2024 Potassium [Moles/Vol] 3.0 mmol/L Low 3.5-5.1 [facility] Comment on above: Slight Hemolysis, Re sult may be falsely increased. RBC Auto (Bld) [#/Vol]Ordere d By: Kianna Izquierdo on 09-30-2024 RBC (Bld) [#/Vol] 3.77 10*6/uL Low 4.2-5.4 [facility] Serum anion gap measurementO rdered By: Kianna Izquierdo on 09-30-2024 Anion gap [Moles/Vol] 6 mmol/L 5-15 [facility] Serum or plasma calcium carlie urement (mass/volume)Ordered By: Kianna Izquierdo on 09-30-2024 Calcium [Mass/Vol] 9.1 mg/dL 8.5-10.1 [facility] Serum or plasma creatinine m easurement (mass/volume)Ordered By: Kianna Izquierdo on 09-30-2024 Creatinine [Mass/Vol] 0.63 mg/dL 0.55-1.02 [facility] Comment on above: The validity of the calculated GFR & GFRAA in patients over 70 years has not been determined. Clinical correlation is essential. Serum or plasma urea nitroge n measurement (mass/volume)Ordered By: Kianna Izquierdo on 09-30-2024 Urea nitrogen [Mass/Vol] 7 mg/dL 7-18 [facility] Sodium levelOrdered By: Manpreet Izquierdo on 09-30-2024 Sodium [Moles/Vol] 139 mmol/L 136-145 [facility] White blood cell (WBC) count Ordered By: Kianna Izquierdo on 09-30-2024 WBC (Bld) [#/Vol] 8.1 10*3/uL 4.4-11.0 [facility] 30on 09-27-2024 30 Problem: Pain - Adul [...] Goal: Assess Nutritional Intake Outcome: Progressing Normal [facility] [id number] 09-27-2024 [id number] Auth approved. TCC messaged attending to place orders, RN and SW to make aware of DC today. Discharge order placed. ROSALIO completed. TC tasked RADIO REPAIR TEACHER to set up transport. Transport set up for 3:00 pm. TCC notified RN and national secretary of time. TCC updated pt at bedside of DC and time and possible cost of transport. Pt verbalized understanding. TCC spoke to son via phone call to update and time. RADIO REPAIR TEACHER notified facility. TCC tasked RADIO REPAIR TEACHER to transmit discharge ordrers to SNF. Pt does not need PASR as she is a return to same facility. Discharge date updated and milestones completed. Pt will be transported to [facility] via ambulance transport today at 3:[address] [facility] [id number] Confirmed pickup chip e of 3 pm by transport company Miki castellano [employer] at phone number . Location of facility drop off is [facility]. [facility], TCC Betzaida Andrade notified on secure chat. [facility] [id number] MAR & Discharge med list transmitted to [facility] via [facility] per TCC request. [facility] [phone] Transport requested in Roundtrip. Awaiting time confirmation. [facility] Nursing Noteon 09-27-2024 Nursing Note Patient IV taken out . Patient discharged off unit in stable condition via private vehicle. [facility] 30on 09-26-2024 30 Problem: Pain - [...] on admission and per policy Avoid shearing [facility] [id number] 09-26-2024 [id number] TCC updated SNF that plan to start auth today. TCC tasked Rosanna to start auth for [facility] [place]. Auth pending. TCC will follow for auth. Normal [facility] BASIC METABOLIC PANELon 09-14 Anion gap [Moles/Vol] 9 mmol/L Normal 3-13 [facility] Comment on above: Performed By: #### L AB15, [id number] ####[employer]: STAR DE LA ROSA ([phone])[facility])[address] [place] [address] Calcium [Mass/Vol] 8.8 mg/dL Normal 8.8-10.0 [facility] Comment on above: Performed By: #### L AB15, [id number] ####[employer]: STAR DE LA ROSA ([id number])[facility])[address] [place] [address] Chloride [Moles/Vol] 103 mmol/L Normal 98-107 [facility] Comment on above: Performed By: #### L AB15, [id number] ####[employer]: STAR DE LA ROSA ([phone])[facility])[address] [place] [address] CO2 [Moles/Vol] 29 mmol/L Normal 23-31 [facility] Comment on above: Performed By: #### L AB15, [id number] ####[employer]: STAR DE LA ROSA ([phone])[facility])[address] [place] [address] Creatinine [Mass/Vol] 0.68 mg/dL Normal 0.57-1.11 [facility] Comment on above: Performed By: #### L AB15, [id number] ####[employer]: STAR DE LA ROSA ([phone])[facility])[address] [place] [address] GLOMERULAR FILTRATION RATE ML/MIN/1.73 SQ M.PREDICTED >90.0 Normal >60.0 [facility] Comment on above: Result Comment: Calc ulation based on the Chronic Kidney Disease Epidemiology Collaboration (CKD-EPI) equation refit without adjustment for race Performed By: #### L AB15, [id number] ####[employer]: STAR DE LA ROSA ([id number])[address] Glucose [Mass/Vol] 116 mg/dL High 82-115 [facility] Comment on above: Performed By: #### L AB15, [id number] ####[employer]: STAR DE LA ROSA ([phone])[facility])[address] [place] [address] Potassium [Moles/Vol] 3.5 mmol/L Normal 3.5-5.1 [facility] Comment on above: Result Comment: [facility] potassium values may be up to 0.5 mmol/L lower than serum values. Performed By: #### L AB15, [id number] ####[employer]: STAR DE LA ROSA ([id number])[address] Sodium [Moles/Vol] 141 mmol/L Normal 136-145 [facility] Comment on above: Performed By: #### L AB15, [id number] ####[employer]: STAR DE LA ROSA ([phone])[address] Urea nitrogen [Mass/Vol] 6 mg/dL Low 9-23 [facility] Comment on above: Performed By: #### L AB15, [id number] ####[employer]: STAR DE LA ROSA ([phone])[address] Bacteria identified Aer cx N om (Lower resp)Ordered By: Marjorie Whittington on 09-26-2024 Gram Stain Result Rare Epithelial cell s per low power field [facility] Gram Stain Result Many Polymorphonucle ar leukocytes per low power field [facility] Gram Stain Result No organisms seen [facility] Bacteria identified Cx Nom ( Bld)Ordered By: Mukund Fox on 09-26-2024 Interpretation and review of laboratory results Abnormal [facility] Blood Collection Sit e: Right Wrist [facility] Basic metabolic 1998 panelon 09-26-2024 Anion gap [Moles/Vol] 9 mmol/L 3 - 13 mmol/L [facility] Calcium [Mass/Vol] 8.8 mg/dL 8.8 - 10. 0 mg/dL [facility] Chloride [Moles/Vol] 103 mmol/L 98 - 10 7 mmol/L [facility] CO2 [Moles/Vol] 29 mmol/L 23 - 31 mmol/L [facility] Creatinine [Mass/Vol] 0.68 mg/dL 0.57 - 1.11 mg/dL [facility] GFR/1.73 sq M.predicted (S/P/Bld) [Vol rate/Area] - PINF [facility] Comment on above: Calculation based on the Chronic Kidney Disease Epidemiology Collaboration (CKD-EPI) equation refit without adjustment for race Glucose [Mass/Vol] 116 mg/dL High 82 - 115 mg/dL [facility] Interpretation and review of laboratory results Abnormal [facility] Potassium [Moles/Vol] 3.5 mmol/L 3.5 - 5.1 mmol/L [facility] Comment on above: Plasma potassium holland ues may be up to 0.5 mmol/L lower than serum values. Sodium [Moles/Vol] 141 mmol/L 136 - 145 mmol/L [facility] Urea nitrogen [Mass/Vol] 6 mg/dL Low 9 - 23 mg/dL [facility] CBC W Auto Differential pane l (Bld)on 09-26-2024 Basophils (Bld) [#/Vol] 0.1 10*3/uL 0.0 - 0.2 10*3/uL [facility] Basophils/100 WBC (Bld) 1.1 % 0.0 - 2.0 % [facility] Eosinophils (Bld) [#/Vol] 0.3 10*3/uL 0.0 - 0.5 10*3/uL [facility] Eosinophils/100 WBC (Bld) 3 % 0.0 - 6.0 % [facility] Erythrocyte distribution width (RBC) [Ratio] 13.2 % 11.5 - 15.0 % [facility] Hematocrit (Bld) [Volume fraction] 33 % Low 35.0 - 47.0 % [facility] Hemoglobin (Bld) [Mass/Vol] 11.1 g/dL Low 11.7 - 16.0 g/dL [facility] Immature granulocytes (Bld) [#/Vol] 0.2 10*3/uL High NINF - 0.1 10*3/uL [facility] Immature granulocytes/100 WBC (Bld) 1.7 % 0.0 - 2.0 % [facility] Interpretation and review of laboratory results Abnormal [facility] Lymphocytes (Bld) [#/Vol] 1.4 10*3/uL 1.0 - 4.3 10*3/uL [facility] Lymphocytes/100 WBC (Bld) 13.8 % Low 15.0 - 45.0 % [facility] MCH (RBC) [Entitic mass] 30.9 pg 26.0 - 34.0 pg [facility] MCHC (RBC) [Mass/Vol] 33.6 % 30.5 - 36.0 % [facility] MCV (RBC) [Entitic vol] 91.9 fL 77.0 - 99.0 fL [facility] Monocytes (Bld) [#/Vol] 1.2 10*3/uL High 0.0 - 0.9 10*3/uL [facility] Monocytes/100 WBC (Bld) 11 % 5.0 - 13.0 % [facility] Neutrophils (Bld) [#/Vol] 7.3 10*3/uL 1.8 - 7.5 10*3/uL [facility] Neutrophils/100 WBC (Bld) 69.4 % 38.0 - 82.0 % [facility] Nucleated RBC/100 WBC (Bld) [Ratio] 0 % [facility] Platelet mean volume (Bld) [Entitic vol] 10.1 fL 9.0 - 12.7 fL [facility] Platelets (Bld) [#/Vol] 294 10*3/uL 140 - 440 10*3/uL [facility] RBC (Bld) [#/Vol] 3.59 10*6/uL Low 3.80 - 5.2 0 10*6/uL [facility] WBC (Bld) [#/Vol] 10.5 10*3/uL 3.6 - 10.7 10*3/uL [facility] CBC WITH AUTO DIFFERENTIALon 09-26-2024 Basophils (Bld) [#/Vol] 0.1 10*3/uL Normal 0.0-0.2 [facility] Comment on above: Performed By: #### L [id number] ####[employer]: STAR DE LA ROSA ([id number])[facility])[address] [place] [address] Basophils/100 WBC (Bld) 1.1 % Normal 0.0-2.0 [facility] Comment on above: Performed By: #### L [id number] ####[employer]: STAR DE LA ROSA ([id number])[facility])[address] [place] [address] Eosinophils (Bld) [#/Vol] 0.3 10*3/uL Normal 0.0-0.5 [facility] Comment on above: Performed By: #### L [id number] ####[employer]: STAR DE LA ROSA ([phone])[facility])[address] [place] [address] Eosinophils/100 WBC (Bld) 3.0 % Normal 0.0-6.0 [facility] Comment on above: Performed By: #### L [id number] ####[employer]: STAR DE LA ROSA ([id number])[facility])[address] [place] [address] Erythrocyte distribution width (RBC) [Ratio] 13.2 % Normal 11.5-15.0 [facility] Comment on above: Performed By: #### L [id number] ####[employer]: STAR DE LA ROSA ([phone])[facility])[address] [place] [address] Hematocrit (Bld) [Volume fraction] 33.0 % Low 35.0-47.0 [facility] Comment on above: Performed By: #### L [id number] ####[employer]: STAR DE LA ROSA ([phone])[facility])[address] [place] [address] Hemoglobin (Bld) [Mass/Vol] 11.1 g/dL Low 11.7-16.0 [facility] Comment on above: Performed By: #### L [id number] ####[employer]: STAR [id number])[facility])[address] [place] [address] IMMATURE GRANS % 1.7 % Normal 0.0-2.0 [facility] Comment on above: Performed By: #### L [id number] ####[employer]: STAR DE LA ROSA ([phone])[facility])[address] [place] [address] IMMATURE GRANS ABSOLUTE 0.2 10*3/uL High <0.1 [facility] Comment on above: Performed By: #### L [id number] ####[employer]: STAR DE LA ROSA ([phone])[facility])[address] [place] [address] Lymphocytes (Bld) [#/Vol] 1.4 10*3/uL Normal 1.0-4.3 [facility] Comment on above: Performed By: #### L [id number] ####[employer]: STAR DE LA ROSA ([id number])[facility])[address] [place] [address] Lymphocytes/100 WBC (Bld) 13.8 % Low 15.0-45.0 [facility] Comment on above: Performed By: #### L [id number] ####[employer]: STAR DE LA ROSA ([id number])[facility])[address] [place] [address] MCH (RBC) [Entitic mass] 30.9 pg Normal 26.0-34.0 [facility] Comment on above: Performed By: #### L [id number] ####[employer]: STAR DE LA ROSA ([phone])[facility])[address] [place] [address] MCHC 33.6 % Normal 30.5-36.0 [facility] Comment on above: Performed By: #### L [id number] ####[employer]: STAR DE LA ROSA ([phone])[facility])[address] [place] [address] MCV (RBC) [Entitic vol] 91.9 fL Normal 77.0-99.0 [facility] Comment on above: Performed By: #### L [id number] ####[employer]: STAR DE LA ROSA ([phone])[facility])[address] [place] [address] Monocytes (Bld) [#/Vol] 1.2 10*3/uL High 0.0-0.9 [facility] Comment on above: Performed By: #### L [id number] ####[employer]: STAR DE LA ROSA ([phone])[facility] ([facility])[address] [place] [address] Monocytes/100 WBC (Bld) 11.0 % Normal 5.0-13.0 [facility] Comment on above: Performed By: #### L [id number] ####[employer]: STAR DE LA ROSA ([phone])[facility])[address] [place] [address] NEUTROPHILS ABSOLUTE 7.3 10*3/uL Normal 1.8-7.5 [facility] Comment on above: Performed By: #### L [id number] ####[employer]: STAR DE LA ROSA ([phone])[facility])[address] [place] [address] Neutrophils/100 WBC (Bld) 69.4 % Normal 38.0-82.0 [facility] Comment on above: Performed By: #### L [id number] ####[employer]: STAR DE LA ROSA ([id number])[facility] ([facility])[address] [place] [address] NRBC 0.0 /100 WBCs Normal 0.0-2.0 [facility] Comment on above: Performed By: #### L [id number] ####[employer]: STAR DE LA ROSA ([id number])[facility])[address] [place] [address] Platelet mean volume (Bld) [Entitic vol] 10.1 fL Normal 9.0-12.7 [facility] Comment on above: Performed By: #### L [id number] ####[employer]: STAR DE LA ROSA ([phone])[facility] ([facility])[address] [place] [address] Platelets (Bld) [#/Vol] 294 10*3/uL Normal 140-440 [facility] Comment on above: Performed By: #### L [id number] ####[employer]: STAR DE LA ROSA ([phone])[facility] ([facility])[address] [place] [address] RBC (Bld) [#/Vol] 3.59 10*6/uL Low 3.80-5.20 [facility] Comment on above: Performed By: #### L [id number] ####[employer]: STAR DE LA ROSA ([id number])[facility] ([facility])[address] [place] [address] WBC (Bld) [#/Vol] 10.5 10*3/uL Normal 3.6-10.7 [facility] Comment on above: Performed By: #### L [id number] ####[employer]: STAR DE LA ROSA ([phone])[facility] ([facility])[address] [place] [address] Laboratory - Chemistry and C hemistry - challengeon 09-26-2024 Magnesium [Mass/Vol] 1.6 mg/dL 1.6 - 2 .6 mg/dL [facility] Laboratory - Microbiology an d Antimicrobial susceptibilityOrdered By: Mukund Fox on 09-26-2024 Bacteria identified Cx Nom (Bld) Staphylococcus epidermidis Critically abnormal [facility] Comment on above: Contamination likely unless additional blood culture sets are found to be positive with the same organism. This is an edited result. Previous organism was Gram-positive cocci on 09/24/2024 at 0802 EST. Laboratory - Microbiology an d Antimicrobial susceptibilityOrdered By: Marjorie Whittington on 09-26-2024 Bacteria identified Aer cx Nom (Lower resp) Few respiratory sena present. [facility] MAGNESIUMon 09-26-2024 Magnesium [Mass/Vol] 1.6 mg/dL Normal 1.6-2.6 [facility] Comment on above: Result Comment: KAMILLA Gill COMMENTS: Higher values can be expected in females during menses. Performed By: #### L AB15, [id number] ####[employer]: STAR DE LA ROSA ([phone])[facility] ([place] [address] [place] Magnesium [Mass/Vol]on 09-26 Interpretation and review of laboratory results Normal [facility] Higher values can be expected in females during menses. [facility] No Panel Informationon 09-26 [facility] Nursing Noteon 09-26-2024 Nursing Note Wound Care [...] verbalized understanding. Prevention Measures in place, including: [place] sheet with pillows in place, Bilateral) foam [...] or concerns. Kimmy Alexandre, RN, BSN Normal [facility] Progress Noteon 09-26-2024 Progress Note [facility] Medical [facility] Geriatric Medicine Inpatient Consult Service Admission [...] review of chart, plan to return to [facility] [place] Bipolar disorder - per facility is followed by in house psych team at [facility] - see medication recommendations as below, significant polypharmacy- on several psych medications, would benefit from psychiatry input for ability to limit her pill burden Polypharmacy - Per nurse Carli at [facility] on 09/24- patient is reported to [...] of continuation of both Seroquel and Risperdal fci - Tizanidine 2mg BID- unclear indication for this, would recommend attempts at gradual dose reduction vs changing to PRN - Pregabalin 150mg BID- restarted - Vistaril 25mg BID- OK to continue to hold at this time, 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 alternative fci- due to anticholinergic effects may further contribute [...] she knows that she is currently at [facility] Therapy recommendations Seen by PT/OT today- both [...] (97.4 ?F) (Temporal) Resp 16 Ht 5' 6.5 (1.689 m) Wt 182 lb 1.6 oz [...] (Buspar) tablet (more content not included)... Normal [facility] [id number] 09-25-2024 [id number] Attending wanting pt to return SNF LOC if possible, PT recommending SNF. [facility] [place] will take pt back SNF LOC. Pt is agreeable to this. Per attending, okay to star auth. No PASR needed as pt is a return to same facility. TCC tasked PT and OT to see for updated notes. TCC will follow for notes to start auth. Normal [facility] BASIC METABOLIC PANELon 09-14 Anion gap [Moles/Vol] 8 mmol/L Normal 3-13 [facility] Comment on above: Performed By: #### L [id number] ####[employer]: SOFIE BARAJAS ([id number])[facility] ([facility])[address] [place] [address]#### LAB15, LAB69, [id number], [id number] ####[employer]: STAR DE LA ROSA ([id number])[facility] ([facility])[address] [place] [address] Calcium [Mass/Vol] 8.9 mg/dL Normal 8.8-10.0 [facility] Comment on above: Performed By: #### L [id number] ####[employer]: SOFIE BARAJAS ([phone])[facility] ([facility])[address] [place] [address]#### LAB15, LAB69, [id number], [id number] ####[employer]: STAR DE LA ROSA ([id number])[facility] ([facility])[address] [place] [address] Chloride [Moles/Vol] 103 mmol/L Normal 98-107 [facility] Comment on above: Performed By: #### L [id number] ####[employer]: SOFIE BARAJAS ([id number])[facility] ([facility])[address] [place] [address] [place]#### LAB15, LAB69, [id number], [id number] ####[employer]: STAR DE LA ROSA ([id number])[facility] ([facility])[address] [place] [address] CO2 [Moles/Vol] 27 mmol/L Normal 23-31 [facility] Comment on above: Performed By: #### L [id number] ####[employer]: SOFIE BARAJAS ([id number])[facility] ([facility])[address]#### LAB15, LAB69, [id number], [id number] ####[employer]: STAR DE LA ROSA ([phone])[facility] ([facility])[address] [place] [address] Creatinine [Mass/Vol] 0.65 mg/dL Normal 0.57-1.11 [facility] Comment on above: Performed By: #### L [id number] ####[employer]: SOFIE BARAJAS ([phone])[facility] ([facility])[address] [place] [address]#### LAB15, LAB69, [id number], [id number] ####[employer]: STAR DE LA ROSA ([phone])[facility])[address] [place] [address] GLOMERULAR FILTRATION RATE ML/MIN/1.73 SQ M.PREDICTED >90.0 Normal >60.0 [facility] Comment on above: Result Comment: Calc ulation based on the Chronic Kidney Disease Epidemiology Collaboration (CKD-EPI) equation refit without adjustment for race Performed By: #### L [id number] ####[employer]: SOFIE BARAJAS ([phone])[facility] ([facility])[address]#### LAB15, LAB69, [id number], [id number] ####[employer]: STAR DE LA ROSA ([phone])[facility])[address] [place] [address] Glucose [Mass/Vol] 99 mg/dL Normal 82-115 [facility] Comment on above: Performed By: #### L [id number] ####[employer]: SOFIE BARAJAS ([phone])[facility] ([facility])[address] [place] [address]#### LAB15, LAB69, [id number], [id number] ####[employer]: STAR DE LA ROSA ([phone])[facility])[address] [place] [address] Potassium [Moles/Vol] 3.5 mmol/L Normal 3.5-5.1 [facility] Comment on above: Result Comment: [facility] potassium values may be up to 0.5 mmol/L lower than serum values. Performed By: #### L [id number] ####[employer]: SOFIE BARAJAS ([phone])[facility] ([facility])[address] [place] [address]#### LAB15, LAB69, [id number], [id number] ####[employer]: STAR DE LA ROSA ([id number])[facility])[address] [place] [address] Sodium [Moles/Vol] 138 mmol/L Normal 136-145 [facility] Comment on above: Performed By: #### L [id number] ####[employer]: SOFIE BARAJAS ([id number])[facility] ([facility])[address] [place] [address]#### LAB15, LAB69, [id number], [id number] ####[employer]: STAR DE LA ROSA ([id number])[facility])[address] [place] [address] Urea nitrogen [Mass/Vol] 9 mg/dL Normal 9-23 [facility] Comment on above: Performed By: #### L [id number] ####[employer] Helicopter: SOFIE BARAJAS ([phone])[facility] ([facility])[address] [place] [address]#### LAB15, LAB69, [id number], [id number] ####[employer] Helicopter: STAR DE LA ROSA ([phone])[facility] [place] [address] Basic metabolic 1998 panelon 02-12-2025 Anion gap [Moles/Vol] 8 mmol/L 3 - 13 mmol/L [facility] Calcium [Mass/Vol] 8.9 mg/dL 8.8 - 10. 0 mg/dL [facility] Chloride [Moles/Vol] 103 mmol/L 98 - 10 7 mmol/L [facility] CO2 [Moles/Vol] 27 mmol/L 23 - 31 mmol/L [facility] Creatinine [Mass/Vol] 0.65 mg/dL 0.57 - 1.11 mg/dL [facility] GFR/1.73 sq M.predicted (S/P/Bld) [Vol rate/Area] - PINF [facility] Comment on above: Calculation based on the Chronic Kidney Disease Epidemiology Collaboration (CKD-EPI) equation refit without adjustment for race Glucose [Mass/Vol] 99 mg/dL 82 - 115 mg/dL [facility] Interpretation and review of laboratory results Normal [facility] Potassium [Moles/Vol] 3.5 mmol/L 3.5 - 5.1 mmol/L [facility] Comment on above: Plasma potassium holland ues may be up to 0.5 mmol/L lower than serum values. Sodium [Moles/Vol] 138 mmol/L 136 - 145 mmol/L [facility] Urea nitrogen [Mass/Vol] 9 mg/dL 9 - 23 mg/dL [facility] C. DIFFICILE BY PCR WITH REF NICK TO EIAon 09-25-2024 C. DIFFICILE BY PCR WITH REFLEX TO EIA C. DIFFICILE TOXIN PCR Reference Not Detected Not Detected ORDER COMMENTS: C. difficile infection is unlikely to be present. Methodology: Real-time PCR Normal [facility] Comment on above: Performed By: #### L [id number], [id number] ####[employer] Hel[employer]: STAR DE LA ROSA ([phone])[facility] ([facility] C. difficile toxin genes KAMLA +probe Ql (Stl)on 09-25-2024 C. difficile toxin B tcdB gene KAMLA+probe Ql (Stl) Not detected Not Detected [facility] Interpretation and review of laboratory results Normal [facility] C. difficile infecti on is unlikely to be present. Methodology: Real-time PCR [facility] CBC W Auto Differential pane l (Bld)on 09-25-2024 Basophils (Bld) [#/Vol] 0.1 10*3/uL 0.0 - 0.2 10*3/uL [facility] Basophils/100 WBC (Bld) 0.5 % 0.0 - 2.0 % [facility] Eosinophils (Bld) [#/Vol] 0.2 10*3/uL 0.0 - 0.5 10*3/uL [facility] Eosinophils/100 WBC (Bld) 1.7 % 0.0 - 6.0 % [facility] Erythrocyte distribution width (RBC) [Ratio] 12.8 % 11.5 - 15.0 % [facility] Hematocrit (Bld) [Volume fraction] 34.6 % Low 35.0 - 47.0 % [facility] Hemoglobin (Bld) [Mass/Vol] 11 g/dL Low 11.7 - 16.0 g/dL [facility] Immature granulocytes (Bld) [#/Vol] 0.1 10*3/uL High NINF - 0.1 10*3/uL [facility] Immature granulocytes/100 WBC (Bld) 0.7 % 0.0 - 2.0 % [facility] Interpretation and review of laboratory results Abnormal [facility] Lymphocytes (Bld) [#/Vol] 1.3 10*3/uL 1.0 - 4.3 10*3/uL [facility] Lymphocytes/100 WBC (Bld) 11.1 % Low 15.0 - 45.0 % [facility] MCH (RBC) [Entitic mass] 30.2 pg 26.0 - 34.0 pg [facility] MCHC (RBC) [Mass/Vol] 31.8 % 30.5 - 36.0 % [facility] MCV (RBC) [Entitic vol] 95.1 fL 77.0 - 99.0 fL [facility] Monocytes (Bld) [#/Vol] 1.2 10*3/uL High 0.0 - 0.9 10*3/uL [facility] Monocytes/100 WBC (Bld) 9.7 % 5.0 - 13.0 % [facility] Neutrophils (Bld) [#/Vol] 9.2 10*3/uL High 1.8 - 7.5 10*3/uL [facility] Neutrophils/100 WBC (Bld) 76.3 % 38.0 - 82.0 % [facility] Nucleated RBC/100 WBC (Bld) [Ratio] 0 % [facility] Platelet mean volume (Bld) [Entitic vol] 10.3 fL 9.0 - 12.7 fL [facility] Platelets (Bld) [#/Vol] 246 10*3/uL 140 - 440 10*3/uL [facility] RBC (Bld) [#/Vol] 3.64 10*6/uL Low 3.80 - 5.2 0 10*6/uL [facility] WBC (Bld) [#/Vol] 12 10*3/uL High 3.6 - 10.7 10*3/uL [facility] CBC WITH AUTO DIFFERENTIALon 09-25-2024 Basophils (Bld) [#/Vol] 0.1 10*3/uL Normal 0.0-0.2 [facility] Comment on above: Performed By: #### L [id number] ####[employer] Hel[employer]: STAR DE LA ROSA ([phone])[facility])[address] [place] [address] Basophils/100 WBC (Bld) 0.5 % Normal 0.0-2.0 [facility] Comment on above: Performed By: #### L [id number] ####[employer] Hel[employer]: STAR DE LA ROSA ([phone])[facility])[address] [place] [address] Eosinophils (Bld) [#/Vol] 0.2 10*3/uL Normal 0.0-0.5 [facility] Comment on above: Performed By: #### L [id number] ####[employer] Helicopter: STAR DE LA ROSA ([phone])[facility])[address] [place] [address] Eosinophils/100 WBC (Bld) 1.7 % Normal 0.0-6.0 [facility] Comment on above: Performed By: #### L [id number] ####[employer] Helicopter: STAR DE LA ROSA ([phone])[facility])[address] [place] [address] Erythrocyte distribution width (RBC) [Ratio] 12.8 % Normal 11.5-15.0 [facility] Comment on above: Performed By: #### L [id number] ####[employer] Helicopter: STAR DE LA ROSA ([phone])[address] Hematocrit (Bld) [Volume fraction] 34.6 % Low 35.0-47.0 [facility] Comment on above: Performed By: #### L [id number] ####[employer] Helicopter: STAR DE LA ROSA ([phone])[facility])[address] [place] [address] Hemoglobin (Bld) [Mass/Vol] 11.0 g/dL Low 11.7-16.0 [facility] Comment on above: Performed By: #### L [id number] ####[employer] Helicopter: STAR DE LA ROSA ([phone])[address] IMMATURE GRANS % 0.7 % Normal 0.0-2.0 [facility] Comment on above: Performed By: #### L [id number] ####[employer] Hel[employer]opter: STAR DE LA ROSA ([phone])[address] IMMATURE GRANS ABSOLUTE 0.1 10*3/uL High <0.1 [facility] Comment on above: Performed By: #### L [id number] ####[employer] Helicopter: STAR DE LA ROSA ([phone])[facility])[address] [place] [address] Lymphocytes (Bld) [#/Vol] 1.3 10*3/uL Normal 1.0-4.3 [facility] Comment on above: Performed By: #### L [id number] ####[employer] Helicopter: STAR DE LA ROSA ([phone])[address] Lymphocytes/100 WBC (Bld) 11.1 % Low 15.0-45.0 [facility] Comment on above: Performed By: #### L [id number] ####[employer] Helicopter: STAR DE LA ROSA ([phone])[facility])[address] [place] [address] MCH (RBC) [Entitic mass] 30.2 pg Normal 26.0-34.0 [facility] Comment on above: Performed By: #### L [id number] ####[employer] Helicopter: STAR DE LA ROSA ([phone])[facility])[address] [place] [address] MCHC 31.8 % Normal 30.5-36.0 [facility] Comment on above: Performed By: #### L [id number] ####[employer] Helicopter: STAR DE LA ROSA ([phone])[facility])[address] [place] [address] MCV (RBC) [Entitic vol] 95.1 fL Normal 77.0-99.0 [facility] Comment on above: Performed By: #### L [id number] ####[employer] Helicopter: STAR DE LA ROSA ([phone])[facility] ([facility])[address] [place] [address] Monocytes (Bld) [#/Vol] 1.2 10*3/uL High 0.0-0.9 [facility] Comment on above: Performed By: #### L [id number] ####[employer] Helicopter: STAR DE LA ROSA ([phone])[facility])[address] [place] [address] Monocytes/100 WBC (Bld) 9.7 % Normal 5.0-13.0 [facility] Comment on above: Performed By: #### L [id number] ####[employer] Helicopter: STAR DE LA ROSA ([phone])[facility])[address] [place] [address] NEUTROPHILS ABSOLUTE 9.2 10*3/uL High 1.8-7.5 [facility] Comment on above: Performed By: #### L [id number] ####[employer] Helicopter: STAR DE LA ROSA ([phone])[facility])[address] [place] [address] Neutrophils/100 WBC (Bld) 76.3 % Normal 38.0-82.0 [facility] Comment on above: Performed By: #### L [id number] ####[employer] Helicopter: STAR DE LA ROSA ([phone])[facility] ([facility])[address] [place] [address] NRBC 0.0 /100 WBCs Normal 0.0-2.0 [facility] Comment on above: Performed By: #### L [id number] ####[employer] Helicopter: STAR DE LA ROSA ([phone])[facility] ([facility])[address] [place] [address] Platelet mean volume (Bld) [Entitic vol] 10.3 fL Normal 9.0-12.7 [facility] Comment on above: Performed By: #### L [id number] ####[employer] Helicopter: STAR DE LA ROSA ([phone])[facility] ([facility])[address] [place] [address] Platelets (Bld) [#/Vol] 246 10*3/uL Normal 140-440 [facility] Comment on above: Performed By: #### L [id number] ####[employer] Helicopter: STAR DE LA ROSA ([phone])[facility] ([facility])[address] [place] [address] RBC (Bld) [#/Vol] 3.64 10*6/uL Low 3.80-5.20 [facility] Comment on above: Performed By: #### L [id number] ####[employer] Helicopter: STAR DE LA ROSA ([phone])[facility] ([facility])[address] [place] [address] WBC (Bld) [#/Vol] 12.0 10*3/uL High 3.6-10.7 [facility] Comment on above: Performed By: #### L [id number] ####[employer] Helicopter: STAR DE LA ROSA ([phone])[facility] ([facility])[address] [place] [address] Cobalamin (Vitamin B12) [Mas s/Vol]on 09-25-2024 Interpretation and review of laboratory results Normal [facility] FOLATEon 09-25-2024 FOLATE RESULT 16.3 ng/mL Normal 7.0-31.4 [facility] Comment on above: Performed By: #### L [id number] ####[employer] Helicopter: SOFIE BARAJAS ([phone])[facility] ([facility])[address] [place] [address]#### LAB15, LAB69, [id number], [id number] ####[employer] Helicopter: STAR DE LA ROSA ([phone])[facility])[address] [place] [address] Folate [Mass/Vol]on 09-25-19 Interpretation and review of laboratory results Normal [facility] GASTROINTESTINAL PCR PANELon 09-25-2024 GASTROINTESTINAL PCR PANEL [...] Norovirus specific assay. Methodology: Multiplex PCR Normal [facility] Comment on above: Performed By: #### L [id number], [id number] ####[employer] Helicopter: STAR DE LA ROSA ([phone])[facility] ([facility])[address] [place] [address] Gastrointestinal pathogens p perry KAMLA+probe (Stl)Ordered By: Delia Diez on 09-25-2024 Adenovirus F 40/41 Not detected Not Detected [facility] Astrovirus Not detected Not Detected [facility] Campylobacter Not detected Not Detected [facility] Cryptosporidium Not detected Not Detected [facility] Cyclospora cayetanensis Not detected Not Detect ed [facility] Entamoeba histolytica Not detected Not Detected [facility] Enterotoxigenic E coli (ETEC) Not detected Not Detected [facility] Giardia lamblia Not detected Not Detected [facility] Interpretation and review of laboratory results Normal [facility] Norovirus GI/GII Not detected Not Detected [facility] Plesiomonas shigelloides Not detected Not Detected [facility] Rotavirus A Not detected Not Detected [facility] Salmonella Not detected Not Detected [facility] Sapovirus Not detected Not Detected [facility] Shiga toxin-producing E coli (STEC) Not detected Not Detected [facility] Shigella/Enteroinvasive E coli (EIEC) Not detected Not Detected [facility] Vibrio cholerae Not detected Not Detected [facility] Vibrio species Not detected Not Detected [facility] Yersinia enterocolitica Not detected Not Detect ed [facility] A positive Norovirus result on the [facility] GI panel should be interpreted in the context of the patient's history and clinical picture. If results are not consistent, result should be confirmed with a Norovirus specific assay. Methodology: Multiplex PCR [facility] - Chemistry and C hemistry - challengeon 09-25-2024 Cobalamin (Vitamin B12) [Mass/Vol] 602 pg/mL 213 - 816 pg/mL [facility] Folate [Mass/Vol] 16.3 ng/mL 7.0 - 31.4 ng/mL [facility] TSH Qn 0.57 m[IU]/L [facility] Magnesium [Mass/Vol] 1.5 mg/dL Low 1.6 - 2 .6 mg/dL [facility] - Drug toxicology on 09-25-2024 carBAMazepine [Mass/Vol] 11.6 ug/mL 4.0 - 12.0 ug/mL [facility] - Microbiology an d Antimicrobial susceptibilityon 09-25-2024 M. pneumoniae IgM IA Qn (S) 0.29 U/L NINF - 0.76 U/L [facility] Comment on above: INTERPRETIVE INFORMA TION: Mycoplasma [...] more than 12 months post-infection. Performed By: [facility] [address] [place] [address] Linotype Operator: Troy Bateman MD, PhD CLIA Number: [id number] MAGNESIUMon 09-25-2024 Magnesium [Mass/Vol] 1.5 mg/dL Low 1.6-2.6 [facility] Comment on above: Result Comment: KAMILLA Gill COMMENTS: Higher values can be expected in females during menses. Performed By: #### L [id number] ####[employer]: SOFIE BARAJAS ([phone])[facility] ([facility])[address] [place] [address]#### LAB15, LAB69, [id number], [id number] ####[employer] Helicopter: STAR DE LA ROSA ([phone])[facility] ([facility])[address] [place] [address] Magnesium [Mass/Vol]on 09-25 Interpretation and review of laboratory results Abnormal [facility] Higher values can be expected in females during menses. [facility] No Panel Informationon 09-25 [facility] Interpretation and review of laboratory results Normal [facility] Carbamazepine concentrations above 15 ug/mL are often associated with toxicity [facility] Progress Noteon 09-25-2024 Progress Note [facility] Geriatric Medicine Inpatient Consult Service [...] followed by in house psych team at [facility] - see medication recommendations as below, significant polypharmacy- on several psych medications, would benefit from psychiatry input for ability to limit her pill burden Hypothyroidism - TSH within normal limits - 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, currently ordered 75mcg, please adjust dose if appropriate- defer management to primary team Polypharmacy - I personally called and spoke with nurse Boyce at [facility] on 09/24 to review medications- reported [...] of continuation of both Seroquel and Risperdal fci - Tizanidine 2mg BID- unclear indication for this, would recommend attempts at gradual dose reduction vs changing to PRN - Pregabalin 150mg BID- restarted - Vistaril 25mg BID- OK to continue to hold at this time, 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 alternative fci- due to anticholinergic effects may further contribute [...] (98 ?F) (Temporal) Resp 18 Ht 5' 7 (1.702 m) Wt 180 lb (81.6 kg) SpO2 95% BMI 28.19 kg/m? Intake/Output Summary (Last 24 hours) at 09/25/2024 1537 Last data filed at 09/25/2024 1259 Gross per 24 hour Intake 150 ml Output -- Net 150 ml Wt Readings from Last 4 Encounters: 09/23/24 180 lb (81.6 kg) Current Facil (more content not included)... Normal [facility] Progress Note PHYSICAL THERAPY [facility] Treatment Note Name/MRN: Andre Blanca ([id number]) Date of : 1950 Age: 74 y.o. Room/Bed: E5-515/E5-515 A Discharge Recommendation: Long-Term Facility Equipment Needed: No Prior Level of [...] act x1, gait x1) Walter Bermeo, PT [facility] Progress Note .Nutrition rescreen completed. Patient referred to the Dietitian. Poor po intake.Madelyn Jacobsen DT Normal [facility] THYROID STIMULATING HORMONEo n 09-25-2024 THYROID STIMULATING HORMONE 0.57 uIU/mL Normal 0.35-4.94 [facility] Comment on above: Performed By: #### L [id number] ####[employer]: SOFIE BARAJAS ([phone])[facility] ([facility])[address]#### LAB15, LAB69, [id number], [id number] ####[employer] Helicopter: STAR DE LA ROSA ([phone])[facility] ([facility])[address] [place] [address] TSH Qnon 09-25-2024 Interpretation and review of laboratory results Normal [facility] VITAMIN B12on 09-25-2024 Cobalamin (Vitamin B12) [Mass/Vol] 602 pg/mL Normal 213-816 [facility] Comment on above: Performed By: #### L [id number] ####[employer]: SOFIE BARAJAS ([phone])[facility] ([facility])[address] [place] [address]#### LAB15, LAB69, [id number], [id number] ####[employer] Hel[employer]: STAR DE LA ROSA ([phone])[facility] ([facility])[address] [place] [address] 25-hydroxyvitamin D3 [Mass/V ol]on 09-24-2024 Interpretation and review of laboratory results Normal [facility] Target concentration : 30 - 40 ng/mL; toxicity seen at concentrations >100 ng/mL Therapy is based on measurement of Total 25-OHD with the following classification levels: Less than 20 ng/mL: Indicative of Vit D deficiency 20-30 ng/mL: Suggests Vit D insufficiency Optimal: Greater than or equal to 30 ng/mL Test performed by [employer] [facility] Competitive Immunoassay, measuring Total Vitamin D, not individual fractions. [facility] 30on 09-24-2024 30 Problem: Pain - Adul [...] is maintained or improved Outcome: Progressing Normal [facility] 30 Problem: Pain - Adul t Goal: Verbalizes/displays adequate comfort level or baseline comfort level Outcome: Progressing Problem: Safety - Adult Goal: Free from fall injury Outcome: Progressing Problem: Knowledge Deficit Goal: Patient/family/caregiv er demonstrates understanding of disease process, treatment plan, medications, and discharge instructions Outcome: Progressing Normal [facility] [id number] 09-24-2024 [id number] TCC completed chart review. 1 blood culture positive and 1 in process, will follow. PO azithromycin and IV rocephin. 3 L of O2-baseline from facility. Wound care consulted. Geriatrics consulted. PT and OT evals pending. Stool studies ordered, GI and c-diff rule out now. Pt is from [place] [facility]. TCC spoke to pt at bedside, she is agreeable to return. TCC spoke to son Giana via phone call to update of DC plan. TCC tasked RADIO REPAIR TEACHER to make a LT return referral. TCC will follow for facility response. Normal [facility] BLOOD TYPE AND SCREEN GELon 09-24-2024 ABO GROUPING O Normal [facility] Comment on above: Order Comment: Don't collect this lab until patient identity is updated. Performed By: #### L [id number] ####[employer]: STAR DE LA ROSA ([phone])[facility] BLOOD [facility])[address] [place] [address] RH TYPE IN BLOOD Positive Normal [facility] Comment on above: Order Comment: Don't collect this lab until patient identity is updated. Performed By: #### L [id number] ####[employer]: STAR DE LA ROSA ([phone])[facility] BLOOD [facility] ([facility])[address] [place] [address] Blood type and Crossmatch pa bita (Bld)on 09-24-2024 ABO group Nom (Bld) O [facility] Blood group antibody screen GEL Ql Negative [facility] D Ag Ql (RBC) Positive [facility] CARBAMAZEPINEon 09-24-2024 CARBAMAZEPINE 11.6 ug/mL Normal 4.0-12.0 [facility] Comment on above: Result Comment: KAMILLA Gill COMMENTS: Use existing specimen Carbamazepine concentrations above 15 ug/mL are often associated with toxicity Performed By: #### L [id number], [id number] ####[employer]: STAR DE LA ROSA ([phone])[facility] ([facility])[address] [place] [address] CBC W Auto Differential pane l (Bld)on 09-24-2024 Basophils (Bld) [#/Vol] 0 10*3/uL 0.0 - 0.2 10*3/uL [facility] Basophils/100 WBC (Bld) 0.3 % 0.0 - 2.0 % [facility] Eosinophils (Bld) [#/Vol] 0.1 10*3/uL 0.0 - 0.5 10*3/uL [facility] Eosinophils/100 WBC (Bld) 0.4 % 0.0 - 6.0 % [facility] Erythrocyte distribution width (RBC) [Ratio] 12.9 % 11.5 - 15.0 % [facility] Hematocrit (Bld) [Volume fraction] 33.3 % Low 35.0 - 47.0 % [facility] Hemoglobin (Bld) [Mass/Vol] 11 g/dL Low 11.7 - 16.0 g/dL [facility] [employer] Immature granulocytes (Bld) [#/Vol] 0.1 10*3/uL High NINF - 0.1 10*3/uL [facility] Immature granulocytes/100 WBC (Bld) 0.5 % 0.0 - 2.0 % [facility] Interpretation and review of laboratory results Abnormal [facility] Lymphocytes (Bld) [#/Vol] 0.9 10*3/uL Low 1.0 - 4.3 10*3/uL [facility] Lymphocytes/100 WBC (Bld) 7.7 % Low 15.0 - 45.0 % [facility] MCH (RBC) [Entitic mass] 30.5 pg 26.0 - 34.0 pg [facility] MCHC (RBC) [Mass/Vol] 33 % 30.5 - 36.0 % [facility] MCV (RBC) [Entitic vol] 92.2 fL 77.0 - 99.0 fL [facility] Monocytes (Bld) [#/Vol] 0.9 10*3/uL 0.0 - 0.9 10*3/uL [facility] Monocytes/100 WBC (Bld) 7.9 % 5.0 - 13.0 % [facility] Neutrophils (Bld) [#/Vol] 9.8 10*3/uL High 1.8 - 7.5 10*3/uL [facility] Neutrophils/100 WBC (Bld) 83.2 % High 38.0 - 82.0 % [facility] Nucleated RBC/100 WBC (Bld) [Ratio] 0 % [facility] Platelet mean volume (Bld) [Entitic vol] 10.3 fL 9.0 - 12.7 fL [facility] Platelets (Bld) [#/Vol] 220 10*3/uL 140 - 440 10*3/uL [facility] RBC (Bld) [#/Vol] 3.61 10*6/uL Low 3.80 - 5.2 0 10*6/uL [facility] WBC (Bld) [#/Vol] 11.8 10*3/uL High 3.6 - 10.7 10*3/uL [facility] CBC WITH AUTO DIFFERENTIALon 09-24-2024 Basophils (Bld) [#/Vol] 0.0 10*3/uL Normal 0.0-0.2 [facility] Comment on above: Performed By: #### L [id number] ####[employer]: STAR DE LA ROSA ([phone])[facility])[address] [place] [address] Basophils/100 WBC (Bld) 0.3 % Normal 0.0-2.0 [facility] Comment on above: Performed By: #### L [id number] ####[employer]: STAR DE LA ROSA ([phone])[facility] ([facility])[address] [place] [address] [place] Eosinophils (Bld) [#/Vol] 0.1 10*3/uL Normal 0.0-0.5 [facility] Comment on above: Performed By: #### L [id number] ####[employer]: STAR DE LA ROSA ([phone])[facility] ([facility])[address] [place] [address] [place] Eosinophils/100 WBC (Bld) 0.4 % Normal 0.0-6.0 [facility] Comment on above: Performed By: #### L [id number] ####[employer]: STAR DE LA ROSA ([phone])[facility])[address] [place] [address] Erythrocyte distribution width (RBC) [Ratio] 12.9 % Normal 11.5-15.0 [facility] Comment on above: Performed By: #### L [id number] ####[employer]: STAR DE LA ROSA ([phone])[address] Hematocrit (Bld) [Volume fraction] 33.3 % Low 35.0-47.0 [facility] Comment on above: Performed By: #### L [id number] ####[employer]: STAR DE LA ROSA ([phone])[address] Hemoglobin (Bld) [Mass/Vol] 11.0 g/dL Low 11.7-16.0 [facility] Comment on above: Performed By: #### L [id number] ####[employer]: STAR DE LA ROSA ([phone])[address] IMMATURE GRANS % 0.5 % Normal 0.0-2.0 [facility] Comment on above: Performed By: #### L [id number] ####[employer]: STAR DE LA ROSA ([phone])[address] IMMATURE GRANS ABSOLUTE 0.1 10*3/uL High <0.1 [facility] Comment on above: Performed By: #### L [id number] ####[employer]: STAR DE LA ROSA ([phone])[facility])[address] [place] [address] Lymphocytes (Bld) [#/Vol] 0.9 10*3/uL Low 1.0-4.3 [facility] Comment on above: Performed By: #### L [id number] ####[employer]: STAR DE LA ROSA ([phone])[facility])[address] [place] [address] Lymphocytes/100 WBC (Bld) 7.7 % Low 15.0-45.0 [facility] Comment on above: Performed By: #### L [id number] ####[employer]: STAR DE LA ROSA ([phone])[facility])[address] [place] [address] MCH (RBC) [Entitic mass] 30.5 pg Normal 26.0-34.0 [facility] Comment on above: Performed By: #### L [id number] ####[employer]: STAR DE LA ROSA ([phone])[facility])[address] [place] [address] MCHC 33.0 % Normal 30.5-36.0 [facility] Comment on above: Performed By: #### L [id number] ####[employer]: STAR DE LA ROSA ([phone])[facility] ([facility])[address] [place] [address] MCV (RBC) [Entitic vol] 92.2 fL Normal 77.0-99.0 [facility] Comment on above: Performed By: #### L [id number] ####[employer]: STAR DE LA ROSA ([phone])[facility])[address] [place] [address] Monocytes (Bld) [#/Vol] 0.9 10*3/uL Normal 0.0-0.9 [facility] Comment on above: Performed By: #### L [id number] ####[employer]: STAR DE LA ROSA ([phone])[facility])[address] [place] [address] Monocytes/100 WBC (Bld) 7.9 % Normal 5.0-13.0 [facility] Comment on above: Performed By: #### L [id number] ####[employer]: STAR [id number])[facility])[address] [place] [address] NEUTROPHILS ABSOLUTE 9.8 10*3/uL High 1.8-7.5 [facility] Comment on above: Performed By: #### L [id number] ####[employer]: STAR DE LA ROSA ([phone])[facility] ([facility])[address] [place] [address] Neutrophils/100 WBC (Bld) 83.2 % High 38.0-82.0 [facility] Comment on above: Performed By: #### L [id number] ####[employer]: STAR DE LA ROSA ([phone])[facility] ([facility])[address] [place] [address] NRBC 0.0 /100 WBCs Normal 0.0-2.0 [facility] Comment on above: Performed By: #### L [id number] ####[employer]: STAR DE LA ROSA ([phone])[facility] ([facility])[address] [place] [address] Platelet mean volume (Bld) [Entitic vol] 10.3 fL Normal 9.0-12.7 [facility] Comment on above: Performed By: #### L [id number] ####[employer]: STAR DE LA ROSA ([phone])[facility] ([facility])[address] [place] [address] Platelets (Bld) [#/Vol] 220 10*3/uL Normal 140-440 [facility] Comment on above: Performed By: #### L [id number] ####[employer]: TSAR DE LA ROSA ([phone])[facility] ([facility])[address] [place] [address] RBC (Bld) [#/Vol] 3.61 10*6/uL Low 3.80-5.20 [facility] Comment on above: Performed By: #### L [id number] ####[employer]: STAR DE LA ROSA ([phone])[facility] ([facility])[address] [place] [address] [place] WBC (Bld) [#/Vol] 11.8 10*3/uL High 3.6-10.7 [facility] Comment on above: Performed By: #### L [id number] ####[employer]: STAR DE LA ROSA ([phone])[facility] ([facility])[address] [place] [address] COMPREHENSIVE METABOLIC PANE Jay 09-24-2024 Albumin [Mass/Vol] 2.4 g/dL Low 3.4-4.8 [facility] Comment on above: Performed By: #### L AB17, [id number] ####[employer]: STAR DE LA ROSA ([phone])[facility] ([facility])[address] [place] [address] ALP [Catalytic activity/Vol] 104 U/L Normal 40-150 [facility] Comment on above: Performed By: #### L [id number], [id number] ####[employer]: STAR DE LA ROSA ([phone])[facility] ([facility])[address] [place] [address] ALT [Catalytic activity/Vol] 10 U/L Normal <30 [facility] Comment on above: Performed By: #### L [id number], [id number] ####[employer]: STAR DE LA ROSA ([phone])[facility] ([facility])[address] [place] [address] Anion gap [Moles/Vol] 11 mmol/L Normal 3-13 [facility] Comment on above: Performed By: #### L [id number], [id number] ####[employer]: STAR DE LA ROSA ([phone])[facility] ([facility])[address] [place] [address] AST [Catalytic activity/Vol] 31 U/L Normal <34 [facility] Comment on above: Performed By: #### L [id number], [id number] ####[employer]: STAR DE LA ROSA ([phone])[facility])[address] [place] [address] Bilirubin [Mass/Vol] 0.5 mg/dL Normal <1.2 [facility] Comment on above: Performed By: #### L AB17, [id number] ####[employer]: STAR DE LA ROSA ([phone])[facility])[address] [place] [address] [place] Calcium [Mass/Vol] 8.8 mg/dL Normal 8.8-10.0 [facility] Comment on above: Performed By: #### L [id number], [id number] ####[employer]: STAR DE LA ROSA ([phone])[facility])[address] [place] [address] [place] Chloride [Moles/Vol] 102 mmol/L Normal 98-107 [facility] Comment on above: Performed By: #### L [id number], [id number] ####[employer]: STAR DE LA ROSA ([phone])[facility])[address] [place] [address] [place] CO2 [Moles/Vol] 25 mmol/L Normal 23-31 [facility] Comment on above: Performed By: #### L [id number], [id number] ####[employer]: STAR DE LA ROSA ([phone])[facility])[address] [place] [address] [place] Creatinine [Mass/Vol] 0.76 mg/dL Normal 0.57-1.11 [facility] Comment on above: Performed By: #### L [id number], [id number] ####[employer]: STAR DE LA ROSA ([phone])[facility] ([facility])[address] [place] [address] [place] GLOMERULAR FILTRATION RATE ML/MIN/1.73 SQ M.PREDICTED 81.8 mL/min/1.73m*2 Normal >60.0 [facility] Comment on above: Result Comment: Calc ulation based on the Chronic Kidney Disease Epidemiology Collaboration (CKD-EPI) equation refit without adjustment for race Performed By: #### L AB17, [id number] ####[employer]: STAR DE LA ROSA ([phone])[facility])[address] [place] [address] [place] Glucose [Mass/Vol] 127 mg/dL High 82-115 [facility] Comment on above: Performed By: #### L AB17, [id number] ####[employer]: STAR DE LA ROSA ([phone])[facility])[address] [place] [address] Potassium [Moles/Vol] 3.3 mmol/L Low 3.5-5.1 [facility] Comment on above: Result Comment: [facility] potassium values may be up to 0.5 mmol/L lower than serum values. Performed By: #### L AB17, [id number] ####[employer]: STAR DE LA ROSA ([phone])[facility] ([facility])[address] [place] [address] Protein [Mass/Vol] 6.8 g/dL Normal 6.4-8.3 [facility] Comment on above: Performed By: #### L AB17, [id number] ####[employer]: STAR DE LA ROSA ([phone])[facility] ([facility])[address] [place] [address] Sodium [Moles/Vol] 138 mmol/L Normal 136-145 [facility] Comment on above: Performed By: #### L [id number], [id number] ####[employer]: STAR DE LA ROSA ([phone])[facility])[address] [place] [address] Urea nitrogen [Mass/Vol] 11 mg/dL Normal 9-23 [facility] Comment on above: Performed By: #### L AB17, [id number] ####[employer]: STAR DE LA ROSA ([phone])[facility])[address] [place] [address] Comprehensive metabolic 1998 panelon 09-24-2024 Albumin [Mass/Vol] 2.4 g/dL Low 3.4 - 4.8 g/dL [facility] ALP [Catalytic activity/Vol] 104 U/L 40 - 150 U/L [facility] ALT [Catalytic activity/Vol] 10 U/L NINF - 30 U/L [facility] Anion gap [Moles/Vol] 11 mmol/L 3 - 13 mmol/L [facility] AST [Catalytic activity/Vol] 31 U/L NINF - 34 U/L [facility] Bilirubin [Mass/Vol] 0.5 mg/dL NINF - 1.2 mg/dL [facility] Calcium [Mass/Vol] 8.8 mg/dL 8.8 - 10. 0 mg/dL [facility] Chloride [Moles/Vol] 102 mmol/L 98 - 10 7 mmol/L [facility] CO2 [Moles/Vol] 25 mmol/L 23 - 31 mmol/L [facility] Creatinine [Mass/Vol] 0.76 mg/dL 0.57 - 1.11 mg/dL [facility] GFR/1.73 sq M.predicted (S/P/Bld) [Vol rate/Area] 81.8 mL/min - PINF [facility] Comment on above: Calculation based on the Chronic Kidney Disease Epidemiology Collaboration (CKD-EPI) equation refit without adjustment for race Glucose [Mass/Vol] 127 mg/dL High 82 - 115 mg/dL [facility] Interpretation and review of laboratory results Abnormal [facility] Potassium [Moles/Vol] 3.3 mmol/L Low 3.5 - 5.1 mmol/L [facility] Comment on above: Plasma potassium holland ues may be up to 0.5 mmol/L lower than serum values. Protein [Mass/Vol] 6.8 g/dL 6.4 - 8.3 g/dL [facility] Sodium [Moles/Vol] 138 mmol/L 136 - 145 mmol/L [facility] Urea nitrogen [Mass/Vol] 11 mg/dL 9 - 23 mg/dL [facility] Consulton 09-24-2024 Consult [facility] Geriatric Medicine Inpatient Consult Service [...] followed by in house psych team at [facility] - see medication recommendations as below, significant polypharmacy- on several psych medications - recommend consultation to psychiatry for further recommendations to reduce current medication burden as able Hypothyroidism - agree with check of TSH - 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, currently ordered 75mcg, please adjust dose if appropriate- defer management to primary team Polypharmacy - I personally called and spoke with nurse Boyce at [facility] to review medications- reported to be [...] hold at this time, 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[employer]- due to anticholinergic effects may further contribute [...] eat much breakfast Spoke with nurseCarli at [facility], [facility] patient with anxiety, medication review as above, patient follows with an in house psychiatric mental health nurse Allergies Allergen Reactions Aspirin Butorphanol Hydromorphone Ibuprofen Oxycodone Prochlorperazine Salicylamide Sulfa Antibiotics Sumatriptan Current Facility-Administered Medications: acetaminophen (Tylenol) tablet 650 mg, 650 mg, Oral, q6h PRN, 650 mg at 09/24/24 0555 OR acetaminophen (Tylenol) suppository 650 mg, 650 mg, Rectal, q6h PRN, Lashon Sullivan MD busPIRone (Buspar) tablet 10 mg, 10 mg, Oral, TID, Shweta Carson APRN - ASW/ASUW [employer] carBAMazepine (TEGretol) tablet 200 mg, 200 mg, [...] mg at (more content not included)... Normal [facility] Laboratory - Chemistry and C hemistry - challengeon 09-24-2024 25-hydroxyvitamin D3 [Mass/Vol] 40 ng/mL 20 - PINF ng/mL [facility] Magnesium [Mass/Vol] 1.5 mg/dL Low 1.6 - 2 .6 mg/dL [facility] MAGNESIUMon 09-24-2024 Magnesium [Mass/Vol] 1.5 mg/dL Low 1.6-2.6 [facility] Comment on above: Result Comment: KAMILLA R COMMENTS: Higher values can be expected in females during menses. Performed By: #### L AB17, [id number] ####[employer]: STAR DE LA ROSA ([phone])[facility] ([facility] MYCOPLASMA PNEUMONIAE ANTIBO DY, IGMon 09-24-2024 MYCOPLASMA PNEUMO, IGM AB 0.29 U/L Normal <=0.76 [facility] Comment on above: Result Comment: INTE RPRETIVE [...] more than 12 months post-infection. Performed By: [facility] [address] [place] [address] Linotype Operator: Troy Bateman MD, PhD CLIA Number: [id number] Performed By: #### L [id number] ####[facility] ([facility])[address] [place] [address] [facility] Magnesium [Mass/Vol]on 09-24 Interpretation and review of laboratory results Abnormal [facility] Higher values can be expected in females during menses. [facility] No Panel InformationOrdered By: Madelyn Augustin on 09-24-2024 Interpretation and review of laboratory results Abnormal [facility] mecA/C (MRSE/MRSL) Detected Abnormal Not Detected [facility] Staphylococcus epidermidis Detected Abnormal Not Detected [facility] Methodology: Multipl ex PCR [employer] BCID panel can detect the following organisms: [...] IMP, KPC, NDM, OXA-48-like, VIM, and mcr-1. [facility] Nursing Noteon 09-24-2024 Nursing Note Wound Care consulted for Pressure Injury Prevention. Pt's Rakan score= 18 on 09/24 Pt's pressure points assessed. Pt's Heels, Buttocks/coccyx, Back, Elbows, Occiput and ears all intact. MASD noted to gluteal cleft. Prevention Measures in place, including: [place] sheet with pillows/wedges, Foam heel protectors (obtained and applied), Heels elevated off bed on pillows, Zinc/Moisture Barrier ointment, Waffle chair cushion (obtained for pt). Skin Care precaution order set in place. Dietitian consult N/A, nutrition subscore of 3. PT/OT consult in place. Will continue to follow pt. Please Voicera for any questions or concerns. Damari Wharton RN Normal [facility] Nursing Note Pt's blood work attempted x2 this morning. Pt refusing anymore attempts at this time. Normal [facility] RESPIRATORY CULTURE AND STAI Non 09-24-2024 RESPIRATORY CULTURE AND STAIN RESPIRATORY CULTURE Reference Few respiratory sena present. GRAM STAIN RESULT Reference Rare Epithelial cells per low power field Many Polymorphonuclear leukocytes per low power field No organisms seen [ S = SUSCEPTIBLE R = RESISTANT I = INTERMEDIATE S-DD = Susceptible-dose dependent NS = Non-susceptible NO = No Interpretation ] Normal [facility] Comment on above: Performed By: #### L [id number] ####[employer]: STAR DE LA ROSA ([phone])[facility] ([facility] Respiratory pathogens DNA an d RNA panel KAMLA+non-probe (Nph)on 09-24-2024 Adenovirus Not detected Not Detected [facility] B. pertussis DNA KAMLA+probe Ql (Unsp spec) Not detected Not Detected [facility] Bordetella parapertussis Not detected Not Detected [facility] Chlamydia pneumoniae Not detected Not Detected [facility] Coronavirus 229E Not detected Not Detected [facility] Coronavirus HKU1 Not detected Not Detected [facility] Coronavirus NL63 Detected Abnormal Not Detected [facility] Coronavirus OC43 Not detected Not Detected [facility] FLUAV RNA KAMLA+non-probe Ql (Nph) Not detected Not Detected [facility] FLUBV RNA KAMLA+non-probe Ql (Nph) Not detected Not Detected [facility] Human Metapneumovirus Not detected Not Detected [facility] Human Rhinovirus/Enterovirus Not detected Not Detected [facility] Interpretation and review of laboratory results Abnormal [facility] Mycoplasma pneumoniae Not detected Not Detected [facility] Parainfluenza 1 Not detected Not Detected [facility] Parainfluenza 2 Not detected Not Detected [facility] Parainfluenza 3 Not detected Not Detected [facility] Parainfluenza 4 Not detected Not Detected [facility] Respiratory Syncytial Virus Not detected Not Detected [facility] SARS-CoV-2 (COVID-19) RNA KAMLA+non-probe Ql (Nph) Not detected Not Detected [facility] Methodology: Multipl ex PCR [facility] VITAMIN D DEFICIENCY SCREENI NG (VIT D 25)on 09-24-2024 VIT D 25-OH, TOTAL 40 ng/mL Normal >20 [facility] Comment on above: Result Comment: ORDE R COMMENTS: Target concentration: 30 - 40 ng/mL; toxicity seen at concentrations >100 ng/mL Therapy is based on measurement of Total 25-OHD with the following classification levels: Less than 20 ng/mL: Indicative of Vit D deficiency 20-30 ng/mL: Suggests Vit D insufficiency Optimal: Greater than or equal to 30 ng/mL Test performed by [employer] Competitive Immunoassay, measuring Total Vitamin D, not individual fractions. Performed By: #### L AB21, [id number] ####[employer]: STAR DE LA ROSA ([phone])[facility] ([facility])[address] [place] [address] ABO and Rh group Confirm Nom (Bld)on 09-23-2024 ABO group Nom (Bld) O [facility] D Ag Ql (RBC) Positive [facility] BASIC METABOLIC PANELon 09-14 Anion gap [Moles/Vol] 7 mmol/L Normal 3-13 [facility] Comment on above: Performed By: #### L AB113, LAB46, LAB15, [id number], [id number] ####[employer]: STAR DE LA ROSA ([phone])[facility] ([facility])[address] [place] [address] Calcium [Mass/Vol] 8.6 mg/dL Low 8.8-10.0 [facility] Comment on above: Performed By: #### L AB113, LAB46, LAB15, [id number], [id number] ####[employer]: STAR DE LA ROSA ([phone])[facility] ([facility])[address] [place] [address] [place] Chloride [Moles/Vol] 98 mmol/L Normal 98-107 [facility] Comment on above: Performed By: #### L AB113, LAB46, LAB15, [id number], [id number] ####[employer]: STAR DE LA ROSA ([phone])[facility] ([facility])[address] [place] [address] [place] CO2 [Moles/Vol] 28 mmol/L Normal 23-31 [facility] Comment on above: Performed By: #### L AB113, LAB46, LAB15, [id number], [id number] ####[employer]: STAR DE LA ROSA ([phone])[facility])[address] [place] [address] [place] Creatinine [Mass/Vol] 1.14 mg/dL High 0.57-1.11 [facility] Comment on above: Performed By: #### L AB113, LAB46, LAB15, [id number], [id number] ####[employer]: STAR DE LA ROSA ([phone])[facility])[address] [place] [address] [place] GLOMERULAR FILTRATION RATE ML/MIN/1.73 SQ M.PREDICTED 50.3 mL/min/1.73m*2 Low >60.0 [facility] Comment on above: Result Comment: Calc ulation based on the Chronic Kidney Disease Epidemiology Collaboration (CKD-EPI) equation refit without adjustment for race Performed By: #### L AB113, LAB46, LAB15, [id number], [id number] ####[employer]: STAR DE LA ROSA ([phone])[facility])[address] [place] [address] Glucose [Mass/Vol] 148 mg/dL High 82-115 [facility] Comment on above: Performed By: #### [place]ion AB113, LAB46, LAB15, [id number], [id number] ####[employer]: STAR DE LA ROSA ([phone])[address] Potassium [Moles/Vol] 3.9 mmol/L Normal 3.5-5.1 [facility] Comment on above: Result Comment: [facility] potassium values may be up to 0.5 mmol/L lower than serum values. Performed By: #### L AB113, LAB46, LAB15, [id number], [id number] ####[employer]: STAR ED LA ROSA ([phone])[facility] [facility])[address] [place] [address] [place] Sodium [Moles/Vol] 133 mmol/L Low 136-145 [facility] Comment on above: Performed By: #### L [id number], LAB46, LAB15, [id number], [id number] ####[employer]: STAR DE LA ROSA ([phone])[facility])[address] [place] [address] [place] Urea nitrogen [Mass/Vol] 23 mg/dL Normal 9-23 [facility] Comment on above: Performed By: #### L [id number], LAB46, LAB15, [id number], [id number] ####[employer]: STAR D ELA ROSA ([phone])[facility])[address] [place] [address] BLOOD CULTUREon 09-23-2024 Bacteria identified Cx Nom [...] Non-susceptible NO = No Interpretation ] Normal [facility] Comment on above: Performed By: #### L [id number], [id number] #### [employer]: STAR DE LA ROSA ([phone]) [facility]) [address] [place] [address] Performed By: #### L [id number], [id number] ####[employer]: STAR DE LA ROSA ([phone])[address] Bacteria identified Cx Nom (Bld) BLOOD CULTURE Reference No growth at 5 days ORDER COMMENTS: Blood Collection Site: Right Forearm [ S = SUSCEPTIBLE R = RESISTANT I = INTERMEDIATE S-DD = Susceptible-dose dependent NS = Non-susceptible NO = No Interpretation ] Normal [facility] Comment on above: Performed By: #### L [id number] ####[employer]: STAR DE LA ROSA ([phone])[address] BLOOD CULTURE IDENTIFICATION - AEROBICon 09-23-2024 BLOOD CULTURE IDENTIFICATION - AEROBIC STAPHYLOCOCCUS EPIDERMIDIS, BLOOD (A) Reference Detected Not Detected MECA/C METHICILLIN RESISTANCE, BLOOD (A) Reference Detected Not Detected ORDER COMMENTS: (A) Methodology: Multiplex PCR [employer] BCID panel can detect the following organisms: [...] IMP, KPC, NDM, OXA-48-like, VIM, and mcr-1. Normal [facility] Comment on above: Performed By: #### L [id number], [id number] #### [employer]: STAR DE LA ROSA ([phone]) [facility] ([facility]) [address] [place] [address] Performed By: #### L [id number], [id number] ####[employer]: STAR DE LA ROSA ([phone])[facility] ([facility])[address] [place] [address] BLOOD TYPE AND SCREEN GELon 09-23-[address] [facility] Comment on above: Performed By: #### L [id number] ####[employer]: STAR DE LA ROSA ([phone])[facility] ([facility])[address] [place] [address] RH TYPE IN BLOOD Positive [facility] Comment on above: Performed By: #### L [id number] ####[employer]: STAR DE LA ROSA ([phone])[facility] ([facility])[address] [place] [address] Basic Metabolic Profile (BMP )on 09-23-2024 BUN Normal 7-18 [facility] Comment on above: Order Comment: 104-2 Result Comment: UTO X2 Performed By: #### L [id number], L501.9520 #### [facility] [address] [place], [address] BUN/CRE Normal 10-20 [facility] Comment on above: Order Comment: 104-2 Result Comment: UTO X2 Performed By: #### L [id number], L501.9520 #### [facility] [address] [place], [address] CA,Total Normal 8.5-10.1 [facility] Comment on above: Order Comment: -2 Result Comment: UTO X2 Performed By: #### L [id number], [id number] #### [facility] [address] [place], [address] CL Normal 98-107 [facility] Comment on above: Order Comment: -2 Result Comment: UTO X2 Performed By: #### L [id number], [id number] #### [facility] [address] [place], [address] CO2 Normal 21.0-32.0 [facility] Comment on above: Order Comment: -2 Result Comment: UTO X2 Performed By: #### L [id number], [id number] #### [facility] [address] [place], [address] CREAT,SERUM Normal 0.55-1.02 [facility] Comment on above: Order Comment: 104-2 Result Comment: UTO X2 Performed By: #### L [id number], [id number] #### [facility] [address] [place], [address] EST GFR Normal >60 [facility] Comment on above: Order Comment: 104-2 Result Comment: UTO X2 Performed By: #### L [id number], [id number] #### [facility] [address] [place], [address] EST GFR - AA Normal >60 [facility] Comment on above: Order Comment: 104-2 Result Comment: UTO X2 Performed By: #### L [id number], [id number] #### [facility] [address] [place], [address] GAP Normal 5-15 [facility] Comment on above: Order Comment: 104-2 Result Comment: UTO X2 Performed By: #### L [id number], [id number] #### [facility] [address] [place], [address] GLU Normal 74-106 [facility] Comment on above: Order Comment: 104-2 Result Comment: UTO X2 Performed By: #### L [id number], [id number] #### [facility] [address] [place], [address] Potassium Normal 3.5-5.1 [facility] Comment on above: Order Comment: 104-2 Result Comment: UTO X2 Performed By: #### L [id number], [id number] #### [facility] [address] [place], [address] Basic Metabolic Profile (BMP) Normal 136-145 [facility] Comment on above: Order Comment: 104-2 Result Comment: UTO X2 Performed By: #### L [id number], [id number] #### [facility] [address] [place], [address] Basic metabolic 1998 panelon 09-23-2024 Anion gap [Moles/Vol] 7 mmol/L 3 - 13 mmol/L [facility] [employer] Calcium [Mass/Vol] 8.6 mg/dL Low 8.8 - 10. 0 mg/dL [facility] [employer] Chloride [Moles/Vol] 98 mmol/L 98 - 10 7 mmol/L [facility] [employer] CO2 [Moles/Vol] 28 mmol/L 23 - 31 mmol/L [facility] Creatinine [Mass/Vol] 1.14 mg/dL High 0.57 - 1.11 mg/dL [facility] GFR/1.73 sq M.predicted (S/P/Bld) [Vol rate/Area] 50.3 mL/min Low - PINF [facility] Comment on above: Calculation based on the Chronic Kidney Disease Epidemiology Collaboration (CKD-EPI) equation refit without adjustment for race Glucose [Mass/Vol] 148 mg/dL High 82 - 115 mg/dL [facility] Potassium [Moles/Vol] 3.9 mmol/L 3.5 - 5.1 mmol/L [facility] Comment on above: Plasma potassium holland ues may be up to 0.5 mmol/L lower than serum values. Sodium [Moles/Vol] 133 mmol/L Low 136 - 145 mmol/L [facility] Urea nitrogen [Mass/Vol] 23 mg/dL 9 - 23 mg/dL [facility] Blood type and Crossmatch pa bita (Bld)on 09-23-2024 ABO group Nom (Bld) O [facility] Blood group antibody screen GEL Ql Negative [facility] D Ag Ql (RBC) Positive [facility] CBC W Auto Differential pane l (Bld)on 09-23-2024 Basophils (Bld) [#/Vol] 0.1 10*3/uL 0.0 - 0.2 10*3/uL [facility] Basophils/100 WBC (Bld) 0.4 % 0.0 - 2.0 % [facility] Eosinophils (Bld) [#/Vol] 0.1 10*3/uL 0.0 - 0.5 10*3/uL [facility] Eosinophils/100 WBC (Bld) 0.6 % 0.0 - 6.0 % [facility] Erythrocyte distribution width (RBC) [Ratio] 12.9 % 11.5 - 15.0 % [facility] Hematocrit (Bld) [Volume fraction] 35.5 % 35.0 - 47.0 % [facility] Hemoglobin (Bld) [Mass/Vol] 11.7 g/dL 11.7 - 16.0 g/dL [facility] Immature granulocytes (Bld) [#/Vol] 0.1 10*3/uL High NINF - 0.1 10*3/uL [facility] Immature granulocytes/100 WBC (Bld) 0.5 % 0.0 - 2.0 % [facility] [employer] Interpretation and review of laboratory results Abnormal [facility] [employer] Lymphocytes (Bld) [#/Vol] 0.7 10*3/uL Low 1.0 - 4.3 10*3/uL [facility] [employer] Lymphocytes/100 WBC (Bld) 6 % Low 15.0 - 45.0 % [facility] MCH (RBC) [Entitic mass] 30.8 pg 26.0 - 34.0 pg [facility] MCHC (RBC) [Mass/Vol] 33 % 30.5 - 36.0 % [facility] MCV (RBC) [Entitic vol] 93.4 fL 77.0 - 99.0 fL [facility] [employer] Monocytes (Bld) [#/Vol] 1.2 10*3/uL High 0.0 - 0.9 10*3/uL [facility] Monocytes/100 WBC (Bld) 10.3 % 5.0 - 13.0 % [facility] [employer] Neutrophils (Bld) [#/Vol] 9.5 10*3/uL High 1.8 - 7.5 10*3/uL [facility] Neutrophils/100 WBC (Bld) 82.2 % High 38.0 - 82.0 % [facility] [employer] Nucleated RBC/100 WBC (Bld) [Ratio] 0 % [facility] [employer] Platelet mean volume (Bld) [Entitic vol] 10.6 fL 9.0 - 12.7 fL [facility] Platelets (Bld) [#/Vol] 209 10*3/uL 140 - 440 10*3/uL [facility] RBC (Bld) [#/Vol] 3.8 10*6/uL 3.80 - 5.2 0 10*6/uL [facility] WBC (Bld) [#/Vol] 11.6 10*3/uL High 3.6 - 10.7 10*3/uL [facility] CBC WITH AUTO DIFFERENTIALon 09-23-2024 Basophils (Bld) [#/Vol] 0.1 10*3/uL Normal 0.0-0.2 [facility] Comment on above: Performed By: #### L [id number] ####[employer]: STAR DE LA ROSA ([phone])[facility] ([address] Basophils/100 WBC (Bld) 0.4 % Normal 0.0-2.0 [facility] Comment on above: Performed By: #### L [id number] ####[employer]: STAR DE LA ROSA ([phone])[facility])[address] [place] [address] Eosinophils (Bld) [#/Vol] 0.1 10*3/uL Normal 0.0-0.5 [facility] Comment on above: Performed By: #### L [id number] ####[employer]: STAR DE LA ROSA ([phone])[facility])[address] [place] [address] Eosinophils/100 WBC (Bld) 0.6 % Normal 0.0-6.0 [facility] Comment on above: Performed By: #### L [id number] ####[employer]: STAR DE LA ROSA ([phone])[facility])[address] [place] [address] Erythrocyte distribution width (RBC) [Ratio] 12.9 % Normal 11.5-15.0 [facility] Comment on above: Performed By: #### L [id number] ####[employer]: STAR DE LA ROSA ([phone])[facility])[address] [place] [address] Hematocrit (Bld) [Volume fraction] 35.5 % Normal 35.0-47.0 [facility] Comment on above: Performed By: #### L [id number] ####[employer]: STAR DE LA ROSA ([phone])[facility])[address] [place] [address] Hemoglobin (Bld) [Mass/Vol] 11.7 g/dL Normal 11.7-16.0 [facility] Comment on above: Performed By: #### L [id number] ####[employer]: STAR DE LA ROSA ([phone])[facility])[address] [place] [address] IMMATURE GRANS % 0.5 % Normal 0.0-2.0 [facility] Comment on above: Performed By: #### L [id number] ####[employer]: STAR DE LA ROSA ([phone])[address] IMMATURE GRANS ABSOLUTE 0.1 10*3/uL High <0.1 [facility] Comment on above: Performed By: #### L [id number] ####[employer]: STAR DE LA ROSA ([phone])[facility])[address] [place] [address] Lymphocytes (Bld) [#/Vol] 0.7 10*3/uL Low 1.0-4.3 [facility] Comment on above: Performed By: #### L [id number] ####[employer]: STAR DE LA ROSA ([phone])[address] Lymphocytes/100 WBC (Bld) 6.0 % Low 15.0-45.0 [facility] Comment on above: Performed By: #### L [id number] ####[employer]: STAR DE LA ROSA ([phone])[address] MCH (RBC) [Entitic mass] 30.8 pg Normal 26.0-34.0 [facility] Comment on above: Performed By: #### L [id number] ####[employer]: STAR DE LA ROSA ([phone])[address] MCHC 33.0 % Normal 30.5-36.0 [facility] Comment on above: Performed By: #### L [id number] ####[employer]: STAR DE LA ROSA ([phone])[address] MCV (RBC) [Entitic vol] 93.4 fL Normal 77.0-99.0 [facility] Comment on above: Performed By: #### L [id number] ####[employer]: STAR [phone])[facility] ([facility])[address] [place] [address] Monocytes (Bld) [#/Vol] 1.2 10*3/uL High 0.0-0.9 [facility] Comment on above: Performed By: #### L [id number] ####[employer]: STAR DE LA ROSA ([phone])[facility] ([facility])[address] [place] [address] Monocytes/100 WBC (Bld) 10.3 % Normal 5.0-13.0 [facility] Comment on above: Performed By: #### L [id number] ####[employer]: STAR DE LA ROSA ([phone])[facility] ([facility])[address] [place] [address] NEUTROPHILS ABSOLUTE 9.5 10*3/uL High 1.8-7.5 [facility] Comment on above: Performed By: #### L [id number] ####[employer]: STAR DE LA ROSA ([phone])[facility] ([facility])[address] [place] [address] Neutrophils/100 WBC (Bld) 82.2 % High 38.0-82.0 [facility] Comment on above: Performed By: #### L [id number] ####[employer]: STAR DE LA ROSA ([phone])[facility] ([facility])[address] [place] [address] NRBC 0.0 /100 WBCs Normal 0.0-2.0 [facility] Comment on above: Performed By: #### L [id number] ####[employer]: STAR DE LA ROSA ([phone])[facility] ([facility])[address] [place] [address] Platelet mean volume (Bld) [Entitic vol] 10.6 fL Normal 9.0-12.7 [facility] Comment on above: Performed By: #### L [id number] ####[employer]: STAR DE LA ROSA ([phone])[facility] ([facility])[address] [place] [address] [place] Platelets (Bld) [#/Vol] 209 10*3/uL Normal 140-440 [facility] Comment on above: Performed By: #### L [id number] ####[employer]: STAR DE LA ROSA ([phone])[facility] ([facility])[address] [place] [address] RBC (Bld) [#/Vol] 3.80 10*6/uL Normal 3.80-5.20 [facility] Comment on above: Performed By: #### L [id number] ####[employer]: STAR DE LA ROSA ([phone])[facility] ([facility])[address] [place] [address] WBC (Bld) [#/Vol] 11.6 10*3/uL High 3.6-10.7 [facility] Comment on above: Performed By: #### L [id number] ####[employer]: STAR DE LA ROSA ([phone])[facility])[address] [place] [address] CBC-Complete Blood Cnt No Di ffon 09-23-2024 HCT Normal 37-47 [facility] Comment on above: Order Comment: 104-2 Result Comment: UTO X2 Performed By: #### L [id number], [id number] #### [facility] [address] [place], [address] HGB Normal 12.0-15.0 [facility] Comment on above: Order Comment: 104-2 Result Comment: UTO X2 Performed By: #### L 501.7900, [id number] #### [facility] [address] [place], [address] MCH Normal 27.0-32.0 [facility] Comment on above: Order Comment: 104-2 Result Comment: UTO X2 Performed By: #### L 501.7900, [id number] #### [facility] [address] [place], [address] MCHC Normal 32-36 [facility] Comment on above: Order Comment: 104-2 Result Comment: UTO X2 Performed By: #### L 501.7900, L501.20 #### [facility] [address] [place], [address] MCV Normal 81-99 [facility] Comment on above: Order Comment: 104-2 Result Comment: UTO X2 Performed By: #### L 501.7900, [id number] #### [facility] [address] [place], [address] PLT Normal 150-450 [facility] Comment on above: Order Comment: -2 Result Comment: UTO X2 Performed By: #### L 501.7900, [id number] #### [facility] [address] [place], [address] RBC Normal 4.2-5.4 [facility] Comment on above: Order Comment: 104-2 Result Comment: UTO X2 Performed By: #### L 501.7900, [id number] #### [facility] [address] [place], [address] RDW CV Normal 11.6-14.6 [facility] Comment on above: Order Comment: 104-2 Result Comment: UTO X2 Performed By: #### L 501.7900, [id number] #### [facility] [address] [place], [address] RDW SD Normal 35.1-43.9 [facility] Comment on above: Order Comment: 104-2 Result Comment: UTO X2 Performed By: #### L 501.7900, [id number] #### [facility] [address] [place], [address] WBC Normal 4.4-11.0 [facility] Comment on above: Order Comment: -2 Result Comment: UTO X2 Performed By: #### L 501.7900, L501.9520 #### [facility] [place], [address] CT CERVICAL SPINE WO IV CONT Wilmer 09-23-2024 CT CERVICAL SPINE WO IV CONTRAST [facility] 1950 [id number] Exam Date/Time: 09/23/2024 11:10 Procedure: CT CERVICAL [...] MD Electronically Signed Date/Time: 09/23/2024 11:31 AM [facility] CT CHEST WO IV CONTRASTon CT CHEST WO IV CONTRAST Patient Name: IVAN WHEAT : 1950 [facility]#: [id number] Exam Date/Time: 09/23/2024 11:10 Procedure: CT CHEST [...] Signed Date/Time: 09/23/2024 11:31 AM EST Normal [facility] CT Cervical spine WO rhiannon ton 09-23-2024 Patient Name: IVAN WHEAT : [...] siphons and distal vertebral arteries is noted. [facility] Olya Kang MD - 09/23/2024 Patient Name: IVAN WHEAT : 1950 [facility]#: [id number] Exam Date/Time: 09/23/2024 11:10 Procedure: CT CERVICAL [...] Electronically Signed Date/Time: 09/23/2024 11:31 AM EST [facility] CT Chest WO contraston 09-23 Patient Name: [...] siphons and distal vertebral arteries is noted. [facility] Olya Kang MD - 09/23/2024 [facility] 1950 [id number] Exam Date/Time: 09/23/2024 11:10 Procedure: CT CHEST [...] Electronically Signed Date/Time: 09/23/2024 11:31 AM EST [facility] CT HEAD WO IV CONTRASTon CT HEAD WO IV CONTRAST Patient Name: IVAN WHEAT : 1950 [facility]#: [id number] Exam Date/Time: 09/23/2024 11:10 Procedure: CT HEAD [...] Signed Date/Time: 09/23/2024 11:31 AM EST Normal [facility] CT Head WO contraston 2024 Patient Name: [...] siphons and distal vertebral arteries is noted. [facility] Olya Kang MD - 09/23/2024 Patient Name: IVAN WHEAT : 1950 [facility]#: [id number] Exam Date/Time: 09/23/2024 11:10 Procedure: CT HEAD [...] MD Electronically Signed Date/Time: 09/23/2024 11:31 AM [facility] ED Nursing Noteon 09-23-2024 ED Nursing Note Gave report to SHA Chan [facility] ED Provider Noteon ED Provider Note Emergency Department Encounter [facility] EMERGENCY DEPT Patient: Andre Blanca : [...] for clarification.) Muna Edmonds MD Acute Care [facility] Muna Edmonds MD 09/23/24 1507 Muna Edmonds MD 09/23/[address] [facility] ED Provider Note EMERGENCY DEPARTMENT ENCOUNTER [...] Physically Abused: No Sexually Abused: No SCREENINGS [place] Coma Scale Best Eye Response: Spontaneous Best Verbal Response: Confused Best Motor Response: Follows commands [place] Coma Scale Score: 14 PHYSICAL EXAM ED [...] CT or (more content not included)... Normal [facility] ETHANOLon 09-23-2024 ETHANOL IN SER/PLAS <10 Normal <10 [facility] Comment on above: Result Comment: KAMILLA Gill COMMENTS: DRESS CUTTER depression is seen >100 mg/dL. NOTE: This result is for medical treatment only. Analysis performed using non-forensic procedures. Performed By: #### L [id number], LAB46, LAB15, [id number], [id number] ####[employer]: STAR DE LA ROSA ([phone])[address] Ethanol (Bld) [Mass/Vol]on 0 09-23-2024 Ethanol [Mass/Vol] mg/dL NINF - 10 mg/dL [facility] DRESS CUTTER depression is se en >100 mg/dL. NOTE: This result is for medical treatment only. Analysis performed using non-forensic procedures. [facility] LACTIC ACID WITH REFLEXon Lactate [Moles/Vol] 1.3 mmol/L Normal 0.5-2.2 [facility] Comment on above: Performed By: #### L [id number] ####[employer]: STAR DE LA ROSA ([phone])[facility] ([facility])[address] [place] [address] LEGIONELLA AND STREPTOCOCCUS URINE ANTIGENon 09-23-2024 LEGIONELLA AND STREPTOCOCCUS URINE ANTIGEN LEGIONELLA PNEUMOPHILA URINE ANTIGEN Reference Not Detected Not Detected STREPTOCOCCUS PNEUMONIAE URINE ANTIGEN Reference Not Detected Not Detected ORDER COMMENTS: Methodology: Lateral flow enzyme immunoassay This assay is approved for detection of antigens to Streptococcus pneumoniae and Legionella pneumophila serogroup 1; however, other L. pneumophila serogroups may also be detected. Normal [facility] Comment on above: Performed By: #### L [id number] ####[employer]: STAR DE LA ROSA ([phone])[facility] ([facility])[address] [place] [address] Laboratory - Chemistry and C hemistry - challengeon 09-23-2024 Procalcitonin [Mass/Vol] 0.18 ng/mL High NINF - 0.07 ng/mL [facility] Lactate [Moles/Vol] 1.3 mmol/L 0.5 - 2. 2 mmol/L [facility] Magnesium [Mass/Vol] 1.5 mg/dL Low 1.6 - 2 .6 mg/dL [facility] Laboratory - Coagulationon 0 09-23-2024 aPTT Coag (PPP) [Time] 29.8 s 20.0 - 30.5 s [facility] INR Coag (PPP) [Relative time] 1.2 {INR} High 0.9 - 1.1 [facility] Comment on above: Recommended Anticoag ulant Therapy: [...] 12.9 s High 9.0 - 12.[address] [facility] Laboratory - Microbiology an d Antimicrobial susceptibilityon 09-23-2024 FLUAV RNA KAMLA+probe Ql (Resp) Not detected Not Detected [facility] FLUBV RNA KAMLA+probe Ql (Resp) Not detected Not Detected [facility] RSV RNA KAMLA+probe Ql (Resp) Not detected Not Detected [facility] SARS-CoV-2 (COVID-19) RNA KAMLA+probe Ql (Resp) Not detected Not Detected [facility] [employer] MAGNESIUMon 09-23-2024 Magnesium [Mass/Vol] 1.5 mg/dL Low 1.6-2.6 [facility] [employer] [facility] Comment on above: Result Comment: KAMILLA R COMMENTS: Higher values can be expected in females during menses. Performed By: #### L AB113, LAB46, LAB15, [id number], [id number] ####[employer]: STAR DE LA ROSA ([phone])[facility] ([facility])[address] [place] [address] Magnesium [Mass/Vol]on 09-23 Higher values can be expected in females during menses. [facility] No Panel InformationOrdered By: Nidia Peters on 09-23-2024 Interpretation and review of laboratory results Normal [facility] Legionella pneumophila Ag Not detected Not Detected [facility] Streptococcus pneumoniae Ag Not detected Not Detected [facility] Methodology: Lateral flow enzyme immunoassay This assay is approved for detection of antigens to Streptococcus pneumoniae and Legionella pneumophila serogroup 1; however, other L. pneumophila serogroups may also be detected. [facility] [employer] No Panel Informationon 09-23 Impression: Likely chronic [...] MD Electronically Signed Date/Time: 09/23/2024 11:31 AM [facility] RADIOLOGY SYSTEM Interpretation and review of laboratory results Normal [facility] Interpretation and review of laboratory results Abnormal [facility] Interpretation and review of laboratory results Abnormal [facility] Radiology Study observation (narrative) [facility] No Panel InformationOrdered By: Olya Kang on 09-23-2024 [facility] Work Phone: Nursing Noteon 09-23-2024 Nursing Note Pt took 3 yellow colored rings off. This RN found them on the floor next to her bed. Placed in specimen cup with pt label on pt's bedside table. Normal [facility] PHOSPHORUSon 09-23-2024 Phosphate [Mass/Vol] 2.5 mg/dL Normal 2.3-4.7 [facility] Comment on above: Performed By: #### L [id number], LAB46, LAB15, [id number], [id number] ####[employer]: STAR DE LA ROSA ([phone])[address] PROCALCITONIN TESTon 025 PROCALCITONIN 0.18 ng/mL High <0.07 [facility] Comment on above: Result Comment: ORDE R COMMENTS: PCT <0.50 = Low risk of severe sepsis and/or septic shock. PCT >2.00 = High risk of severe sepsis and/or septic shock. Performed By: #### L AB113, LAB46, LAB15, [id number], [id number] ####[employer]: STAR DE LA ROSA ([phone])[facility])[address] [place] [address] PROTIME AND APTTon aPTT Coag (Bld) [Time] 29.8 s Normal 20.0-30.5 [facility] Comment on above: Performed By: #### L [id number] ####[employer]: STAR DE LA ROSA ([phone])[facility] ([facility])[address] [place] [address] INR Coag (PPP) [Relative time] 1.2 {INR} High 0.9-1.1 [facility] Comment on above: Result Comment: Que mmended [...] prevent Myocardial Infarction Performed By: #### L [id number] ####[employer]: STAR DE LA ROSA ([phone])[facility] ([facility])[address] [place] [address] PT Coag (PPP) [Time] 12.9 s High 9.0-12.0 [facility] Comment on above: Performed By: #### L [id number] ####[employer]: STAR DE LA ROSA ([phone])[facility] ([facility])[address] [place] [address] [place] Phosphate [Moles/Vol]on 09-14 Phosphate [Mass/Vol] 2.5 mg/dL 2.3 - 4 .7 mg/dL [facility] Procalcitonin [Mass/Vol]on 09-23-2024 Interpretation and review of laboratory results Abnormal [facility] PCT <0.50 = Low risk of severe sepsis and/or septic shock. PCT >2.00 = High risk of severe sepsis and/or septic shock. [facility] RESPIRATORY PATHOGENS PANEL BY PCRon 09-23-2024 RESPIRATORY [...] Detected ORDER COMMENTS: Methodology: Multiplex PCR Normal [facility] Comment on above: Performed By: #### L [id number], [id number] ####[employer]: STAR DE LA ROSA ([phone])[address] SARS-COV-2, FLU A/B, AND RSV COMBOon 09-23-2024 SARS-CoV-2 (COVID-19) RNA KAMLA+probe Ql (Unsp spec) SARS-COV-2 Reference Not Detected Not Detected RESPIRATORY SYNCYTIAL VIRUS Reference Not Detected Not Detected INFLUENZA A (CEPHEID) Reference Not Detected Not Detected INFLUENZA B (CEPHEID) Reference Not Detected Not Detected ORDER COMMENTS: Methodology: real-time, RT-PCR [facility] Comment on above: Performed By: #### L [id number], [id number] ####[employer]: STAR DE LA ROSA ([phone])[facility])[address] [place] [address] SARS-CoV-2, Flu A/B, and RSV Comboon 09-23-2024 Interpretation and review of laboratory results Normal [facility] Methodology: real-time, RT-PCR [facility] XR Chest Single viewon 09-23 Coarsening of the interstitial lung markings is likely chronic. Blunting of the right costophrenic angle may represent atelectasis, infiltrate, and/or pleural effusion. Follow-up to clearing is recommended. Report Dictated on Electronically Signed By: Troy Rubin MD Electronically Signed Date/Time: 09/23/2024 11:11 AM EST [facility] Patient Name: IVAN WHEAT : 1950 [...] spine. Left shoulder arthroplasty is incompletely visualized. [facility] Troy Rubin MD - 09/23/2024 Patient [...] MD Electronically Signed Date/Time: 09/23/2024 11:11 AM [facility] Radiology Study observation (narrative) [facility] XR Chest Single viewOrdered By: Troy Rubin on 09-23-2024 [facility] XR Pelvis 1 or 2 Viewson 1. No acute fracture or dislocation. 2. Osteitis pubis. Report Dictated on Electronically Signed By: Praneeth Roberts MD Electronically Signed Date/Time: 09/23/2024 11:24 AM [facility] [employer] Patient Name: IVAN WHEAT : 1950 [...] normal limits. No significant soft tissue abnormality. [facility] Nikolas Roberts MD - 09/23/2024 [...] Electronically Signed Date/Time: 09/23/2024 11:24 AM EST [facility] Radiology Study observation (narrative) [facility] XR Pelvis 1 or 2 ViewsOrdere d By: Nikolas Roberts on 09-23-2024 [facility] Work Phone: [id number] DOrdered By: Jarod Izquierdo on 07-29-2024 Vitamin D 25-Hydroxy 34.2 ng/mL [facility] Comment on above: Vitamin D 25(OH) Sta tus Range Deficiency <20 ng/mL (50nmol/L) Insufficiency 20 - 30 ng/mL (50 - 75 nmol/L) Sufficiency 30 - 100 ng/mL (75 - 250 nmol/L) Toxicity >100 ng/mL (>250 nmol/L) Vitamin D,25 Hydroxyon 07-29 Vitamin D 25-OH 34.2 ng/mL Normal [facility] Comment on above: Order Comment: 104-2 Result Comment: Elise min D 25(OH) Status Range Deficiency <20 ng/mL (50nmol/L) Insufficiency 20 - 30 ng/mL (50 - 75 nmol/L) Sufficiency 30 - 100 ng/mL (75 - 250 nmol/L) Toxicity >100 ng/mL (>250 nmol/L) Performed By: #### L 501.7900, L501.9520 #### [facility] [address] [place], [address] Automated blood erythrocyte countOrdered By: Kianna Izquierdo on 07-08-2024 RBC (Bld) [#/Vol] 4.36 10*6/uL Normal 4.2-5.4 [facility] Comment on above: Order Comment: 408-1 Performed By: #### L 500.2500, L100.0500 #### [facility] [address] [place], [address] Automated blood hematocrit ( percentage)Ordered By: Kianna Izquierdo on 07-08-2024 Hematocrit (Bld) [Volume fraction] 41.4 % Normal 37-47 [facility] Comment on above: Order Comment: 408-1 Performed By: #### L 500.2500, L100.0500 #### [facility] [address] [place], [address] Basic Metabolic Profile (BMP )on 07-08-2024 BUN/CRE 14.0 RATIO Normal 10-20 [facility] Comment on above: Order Comment: 408-1 Performed By: #### L 500.2500, L100.0500 #### [facility] [address] [place], [address] CA,Total 8.6 mg/dL Normal 8.5-10.1 [facility] Comment on above: Order Comment: 408-1 Performed By: #### L 500.2500, L100.0500 #### [facility] [address] [place], [address] EST GFR - AA 92 mL/min Normal >60 [facility] Comment on above: Order Comment: 408-1 Result Comment: Afri can Filipino GFR Calc Performed By: #### L 500.2500, L100.0500 #### [facility] [address] [place], [address] GAP 3 Low 5-15 [facility] Comment on above: Order Comment: 408-1 Performed By: #### L 500.2500, L100.0500 #### [facility] [address] [place], [address] GFR/1.73 sq M.predicted among non-blacks MDRD (S/P/Bld) [Vol rate/Area] 76 mL/min/{1.73_m2} Normal >60 [facility] Comment on above: Order Comment: Result Comment: Non- GFR Calc Performed By: #### L 500.2500, L100.0500 #### [facility] [address] [place], [address] Blood urea nitrogen (BUN)/cr eatinine ratioOrdered By: Kianna Izquierdo on 07-08-2024 Urea nitrogen/Creatinine [Mass ratio] 14.0 mg/mg 10- [facility] CBC-Complete Blood Cnt No Di ffon 07-08-2024 RDW SD 46.4 fl High 35.1-43.9 [facility] Comment on above: Order Comment: Performed By: #### L 500.2500, L100.0500 #### [facility] [address] [place], [address] Carbon dioxide measurementOr dered By: Kianna Izquierdo on 07-08-2024 CO2 [Moles/Vol] 28.0 mmol/L Normal 21.0-32.0 [facility] Comment on above: Order Comment: Performed By: #### L 500.2500, L100.0500 #### [facility] [address] [place], [address] Chloride measurementOrdered By: Kianna Izquierdo on 07-08-2024 Chloride [Moles/Vol] 108 mmol/L High 98-107 [facility] Comment on above: Order Comment: Performed By: #### L 500.2500, L100.0500 #### [facility] [address] [place], [address] Erythrocyte distribution wid th ratioOrdered By: Kianna Izquierdo on 07-08-2024 Erythrocyte distribution width (RBC) [Ratio] 13.2 % Normal 11.6-14.6 [facility] Comment on above: Order Comment: Performed By: #### L 500.2500, L100.0500 #### [facility] [address] [place], [address] Erythrocyte distribution wid th standard deviationOrdered By: Kianna Izquierdo on 07-08-2024 Erythrocyte distribution width (RBC) [Entitic vol] 46.4 fL High 35.1-43.9 [facility] Estimated glomerular filtrat ion rate (GFR) AmericanOrdered By: Kianna Izquierdo on 07-08-2024 Estimated GFR (MDRD) Amer 92 mL/min >60 [facility] Comment on above: GFR Calc Glomerular filtration rate ( GFR) estimationOrdered By: Kianna Izquierdo on 07-08-2024 Estimated GFR (MDRD) Non-Af Amer 76 mL/min >60 [facility] Comment on above: Non- GFR Calc Glucose measurementOrdered B y: Kianna Izquierdo on 07-08-2024 Glucose [Mass/Vol] 92 mg/dL Normal 74-106 [facility] Comment on above: Order Comment: Performed By: #### L 500.2500, L100.0500 #### [facility] [address] [place], [address] Hemoglobin measurementOrdere d By: Kianna Izquierdo on 07-08-2024 Hemoglobin (Bld) [Mass/Vol] 13.6 g/dL Normal 12.0-15.0 [facility] Comment on above: Order Comment: - Performed By: #### L 500.2500, L100.0500 #### [facility] [address] [place], [address] MCV (mean corpuscular volume ) determinationOrdered By: Kianna Izquierdo on 07-08-2024 MCV (RBC) [Entitic vol] 95.0 fL Normal 81-99 [facility] Comment on above: Order Comment: - Performed By: #### L 500.2500, L100.0500 #### [facility] [address] [place], [address] Mean corpuscular hemoglobin (MCH) determinationOrdered By: Kianna Izquierdo on 07-08-2024 MCH (RBC) [Entitic mass] 31.2 pg Normal 27.0-32.0 [facility] Comment on above: Order Comment: Performed By: #### L 500.2500, L100.0500 #### [facility] [address] [place], [address] Mean corpuscular hemoglobin concentration (MCHC) determinationOrdered By: Kianna Izquierdo on 07-08-2024 MCHC (RBC) [Mass/Vol] 32.9 g/dL Normal 32-36 [facility] Comment on above: Order Comment: Performed By: #### L 500.2500, L100.0500 #### [facility] [address] [place], [address] Mean platelet volume determi nationOrdered By: Kianna Izquierdo on 07-08-2024 Platelet mean volume (Bld) [Entitic vol] 10.3 fL Normal 6.2-12.0 [facility] Comment on above: Order Comment: Performed By: #### L 500.2500, L100.0500 #### [facility] [address] [place], [address] Platelet countOrdered By: Doc Deras on 07-08-2024 Platelets (Bld) [#/Vol] 196 10*3/uL Normal 150-450 [facility] Comment on above: Order Comment: Performed By: #### L 500.2500, L100.0500 #### [facility] [address] [place], [address] Potassium measurementOrdered By: Kianna Izquierdo on 07-08-2024 Potassium [Moles/Vol] 4.1 mmol/L Normal 3.5-5.1 [facility] Comment on above: Slight Hemolysis, Re sult may be falsely increased. Order Comment: 408-1 Result Comment: Slig ht Hemolysis, Result may be falsely increased. Performed By: #### L 500.2500, L100.0500 #### [facility] [address] [place], [address] Serum anion gap measurementO rdered By: Kianna Izquierdo on 07-08-2024 Anion gap [Moles/Vol] 3 mmol/L Low 5-15 [facility] Serum or plasma calcium carlie urement (mass/volume)Ordered By: Kianna Izquierdo on 07-08-2024 Calcium [Mass/Vol] 8.6 mg/dL 8.5-10.1 [facility] Serum or plasma creatinine m easurement (mass/volume)Ordered By: Kianna Izquierdo on 07-08-2024 Creatinine [Mass/Vol] 0.79 mg/dL Normal 0.55-1.02 [facility] Comment on above: The validity of the calculated GFR & GFRAA in patients over 70 years has not been determined. Clinical correlation is essential. Order Comment: 408-1 Result Comment: The validity of the calculated GFR GFRAA in patients over 70 years has not been determined. Clinical correlation is essential. Performed By: #### L 500.2500, L100.0500 #### [facility] [address] [place], [address] Serum or plasma urea nitroge n measurement (mass/volume)Ordered By: Kianna Izquierdo on 07-08-2024 Urea nitrogen [Mass/Vol] 11 mg/dL Normal 7-18 [facility] Comment on above: Order Comment: 408-1 Performed By: #### L 500.2500, L100.0500 #### [facility] [address] [place], [address] Sodium levelOrdered By: Manpreet Izquierdo on 07-08-2024 Sodium [Moles/Vol] 139 mmol/L Normal 136-145 [facility] Comment on above: Order Comment: 408-1 Performed By: #### L 500.2500, L100.0500 #### [facility] [address] [place], [place], [address] White blood cell (WBC) count Ordered By: Kianna Izquierdo on 07-08-2024 WBC (Bld) [#/Vol] 9.1 10*3/uL Normal 4.4-11.0 [facility] Comment on above: Order Comment: 408-1 Performed By: #### L 500.2500, L100.0500 #### [facility] [address] [place], [place], [address] MR Chest WO contraston 06-18 Moderate right hip osteoarthritis. The anterior superior labrum of the right hip also appears torn. No avascular necrosis. Left hip hemiarthroplasty with associated susceptibility artifact. Report Dictated on Electronically Signed By: Olya Kang MD Electronically Signed Date/Time: 06/18/2024 3:25 PM [facility] [employer] Patient Name: ANDRE BLANCA DOB: 1950 Exam Date/Time: 06/18/2024 11:01 Procedure: MR [...] unremarkable. The pelvic contents are grossly unremarkable. [facility] Olya Kang MD - 06/18/2024 [facility] Name: [facility]: 1950 [id number] Exam Date/Time: 06/18/2024 11:01 Procedure: MR HIP [...] Electronically Signed Date/Time: 06/18/2024 3:25 PM EST [facility] Radiology Study observation (narrative) [facility] [employer] MR Chest WO contrastOrdered By: Olya Kang on 06-18-2024 [facility] [employer] Work Phone: Progress Noteon 06-18-2024 Progress Note Ok to have Andre come back to discuss next steps with right hip, will discuss MRI. Normal [facility] Basophil percentageOrdered B y: Kianna Izquierdo on 10-24-2023 Bilirubin [Mass/Vol] 0.20 mg/dL 0.20-1.00 [facility] Comment on above: For patients on eltr ombopag therapy, use of Dimension [place] TBIL is not recommended. Chloride [Moles/Vol] 106 mmol/L 98-107 [facility] Cholesterol [Mass/Vol] 174 mg/dL <200 [facility] Comment on above: <200 mg/dL Desirable 200-240 mg/dL Borderline >240 mg/dL High Risk Glucose [Mass/Vol] 89 mg/dL 74-106 [facility] Hemoglobin (Bld) [Mass/Vol] 12.8 g/dL 12.0-15.0 [facility] Potassium [Moles/Vol] 4.5 mmol/L 3.5-5.1 [facility] Protein [Mass/Vol] 7.2 g/dL 6.4-8.2 [facility] Sodium [Moles/Vol] 140 mmol/L 136-145 [facility] Triglyceride [Mass/Vol] 348 mg/dL <199 [facility] Comment on above: The drugs N-Acetylcy steine and Metamizole may falsely depress this assay.Serum Triglycerides Reference Interval Normal <150 mg/dL Borderline high 150 - 199 mg/dL High 200 - 499 mg/dL Very High > or = 500 mg/dL WBC (Bld) [#/Vol] 8.2 10*3/uL 4.4-11.0 [facility] Determination of erythrocyte mean corpuscular volume (MCV)Ordered By: Kianna Izquierdo on 10-24-2023 MCV (RBC) [Entitic vol] 93.1 fL 81-99 [facility] Erythrocyte distribution wid th ratioOrdered By: Kianna Izquierdo on 10-24-2023 Erythrocyte distribution width (RBC) [Ratio] 12.9 % 11.6-14.6 [facility] Erythrocyte distribution wid th standard deviationOrdered By: Kianna Izquierdo on 10-24-2023 Erythrocyte distribution width (RBC) [Entitic vol] 44.2 fL 35.1-43.9 [facility] Hematocrit Auto (Bld) [Volum e fraction]Ordered By: Kianna Izquierdo on 10-24-2023 Hematocrit (Bld) [Volume fraction] 40.2 % 37-47 [facility] - Chemistry and C hemistry - challengeOrdered By: Kianna Izquierdo on 10-24-2023 Albumin/Globulin [Mass ratio] 0.8 {ratio} 0.9-2.4 [facility] ALP [Catalytic activity/Vol] 142 U/L 45-117 [facility] ALT [Catalytic activity/Vol] 19 U/L 13-56 [facility] Cholesterol in HDL [Mass/Vol] 38 mg/dL >40 [facility] Comment on above: The drugs N-Acetylcy steine and Metamizole may falsely depress this assay. Reference Range HDL <40 mg/dL Low HDL Cholesterol HDL >or= 60 mg/dL High HDL Cholesterol Cholesterol in LDL [Mass/Vol] 66 mg/dL 0-130 [facility] CO2 [Moles/Vol] 33.0 mmol/L 21.0-32.0 [facility] Globulin (S) [Mass/Vol] 4.1 g/dL 2.2-4.2 [facility] Urea nitrogen/Creatinine [Mass ratio] 12.7 mg/mg 10-20 [facility] - Hematology and Cell countsOrdered By: Kianna Izquierdo on 10-24-2023 MCH (RBC) [Entitic mass] 29.6 pg 27.0-32.0 [facility] MCHC (RBC) [Mass/Vol] 31.8 g/dL 32-36 [facility] Platelet mean volume (Bld) [Entitic vol] 10.2 fL 6.2-12.0 [facility] Platelets (Bld) [#/Vol] 269 10*3/uL 150-450 [facility] No Panel InformationOrdered By: Kianna Izquierdo on 10-24-2023 Estimated GFR (MDRD) Amer 92 mL/min >60 [facility] Comment on above: GFR Calc Estimated GFR (MDRD) Non-Af Amer 76 mL/min >60 [facility] Comment on above: Non- GFR Calc VLDL Cholesterol 70 mg/dL 5-40 [facility] RBC Auto (Bld) [#/Vol]Ordere d By: Kianna Izquierdo on 10-24-2023 RBC (Bld) [#/Vol] 4.32 10*6/uL 4.2-5.4 [facility] Serum or plasma calcium carlie urement (mass/volume)Ordered By: Kianna Izquierdo on 10-24-2023 Calcium [Mass/Vol] 9.1 mg/dL 8.5-10.1 [facility] Serum or plasma creatinine m easurement (mass/volume)Ordered By: Kianna Izquierdo on 10-24-2023 Creatinine [Mass/Vol] 0.79 mg/dL 0.55-1.02 [facility] Comment on above: The validity of the calculated GFR & GFRAA in patients over 70 years has not been determined. Clinical correlation is essential. Serum or plasma urea nitroge n measurement (mass/volume)Ordered By: Kianna Izquierdo on 10-24-2023 Urea nitrogen [Mass/Vol] 10 mg/dL 7-18 [facility] Thin prep Papanicolaou smear with manual screeningOrdered By: Kianna Izquierdo on 10-24-2023 Thin prep Papanicolaou smear with manual screening 3.1 g/dL 3.2-5.0 [facility] Thin prep Papanicolaou smear with manual screening 23 U/L 15-37 [facility] Thin prep Papanicolaou smear with manual screening 1 5-15 [facility] No Panel InformationOrdered By: Kianna Izquierdo on 08-10-2023 Carbamazepine (Tegretol) Level 11.1 ug/mL 4.0-12.0 [facility] No Panel InformationOrdered By: Kianna Izquierdo on 07-31-2023 Vitamin D 25-Hydroxy 52.8 ng/mL [facility] Comment on above: Vitamin D 25(OH) Sta tus Range Deficiency <20 ng/mL (50nmol/L) Insufficiency 20 - 30 ng/mL (50 - 75 nmol/L) Sufficiency 30 - 100 ng/mL (75 - 250 nmol/L) Toxicity >100 ng/mL (>250 nmol/L) Basophil percentageOrdered B y: Kianna Izquierdo on 06-26-2023 Basophil percentage 10-25 SEEN /hpf 0-5 [facility] Bilirubin Test strip Ql (U)O rdered By: Kianna Izquierdo on 06-26-2023 Bilirubin Ql (U) Negative Negative [facility] Culture, urineOrdered By: Doc Deras on 06-26-2023 Bacteria identified Cx Nom (U) Escherichia coli [facility] Ketones Test strip Ql (U)Ord ered By: Kianna Izquierdo on 06-26-2023 Ketones Ql (U) Negative Negative [facility] Mucus LM Ql (Urine sed)Order ed By: Kianna Izquierdo on 06-26-2023 Mucus Ql (Urine sed) 0 SEEN /hpf [facility] Nitrite Test strip Ql (U)Ord ered By: Kianna Izquierdo on 06-26-2023 Nitrite Ql (U) Negative Negative [facility] Protein Test strip Ql (U)Ord ered By: Kianna Izquierdo on 06-26-2023 Protein Ql (U) 15 mg/dl Negative [facility] Squamous epithelial cells de tection in urine sediment by light microscopyOrdered By: Kianna Izquierdo on 06-26-2023 Epithelial cells.squamous LM Ql (Urine sed) 0 SEEN /hpf 5-10 [facility] Urine blood detectionOrdered By: Kianna Izquierdo on 06-26-2023 RBC Ql (U) Negative Negative [facility] RBC Ql (U) 0 SEEN /hpf 0-5 [facility] Urine clarityOrdered By: Apple Izquierdo on 06-26-2023 Clarity (U) Sl. Cloudy Clear [facility] Urine color determinationOrd ered By: Kianna Izquierdo on 06-26-2023 Color (U) Yellow Yellow [facility] Urine glucose detectionOrder ed By: Kianna Izquierdo on 06-26-2023 Glucose Ql (U) Normal mg/dl Normal [facility] Urine leukocyte esterase det ection by dipstickOrdered By: Kianna Izquierdo on 06-26-2023 Leukocyte esterase Test strip Ql (U) 100 /ul Negative [facility] Urine pHOrdered By: Kianna reynolds on 06-26-2023 pH (U) 5.0 [pH] 5.0 - 8.0 [facility] Urine sediment bacteria coun t by microscopy (number/high power field)Ordered By: Kianna Izquierdo on 06-26-2023 Bacteria LM.HPF (Urine sed) [#/Area] 2 /[HPF] None Seen [facility] Urine specific gravity measu rementOrdered By: Kianna Izquierdo on 06-26-2023 Specific gravity (U) [Rel density] 1.015 1.002-1.030 [facility] Urobilinogen Auto test strip Ql (U)Ordered By: Kianna Izquierdo on 06-26-2023 Urobilinogen Ql (U) Normal mg/dl Normal [facility] Bilirubin Test strip Ql (U)O rdered By: Kianna Izquierdo on 06-20-2023 Bilirubin Ql (U) Negative Negative [facility] Culture, urineOrdered By: Doc Deras on 06-20-2023 Bacteria identified Cx Nom (U) Escherichia coli [facility] Ketones Test strip Ql (U)Ord ered By: Kianna Izquierdo on 06-20-2023 Ketones Ql (U) Negative Negative [facility] Nitrite Test strip Ql (U)Ord ered By: Kianna Izquierdo on 06-20-2023 Nitrite Ql (U) Negative Negative [facility] Protein Test strip Ql (U)Ord ered By: Kianna Izquierdo on 06-20-2023 Protein Ql (U) 15 mg/dl Negative [facility] Urine blood detectionOrdered By: Kianna Izquierdo on 06-20-2023 RBC Ql (U) Negative Negative [facility] Urine clarityOrdered By: Apple Izquierdo on 06-20-2023 Clarity (U) Clear Clear [facility] Urine color determinationOrd ered By: Kianna Izquierdo on 06-20-2023 Color (U) Yellow Yellow [facility] Urine glucose detectionOrder ed By: Kianna Izquierdo on 06-20-2023 Glucose Ql (U) Normal mg/dl Normal [facility] Urine leukocyte esterase det ection by dipstickOrdered By: Kianna Izquierdo on 06-20-2023 Leukocyte esterase Test strip Ql (U) 500 /ul Negative [facility] Urine pHOrdered By: Kianna reynolds on 06-20-2023 pH (U) 6.0 [pH] 5.0 - 8.0 [facility] Urine specific gravity measu rementOrdered By: Kianna Izquierdo on 06-20-2023 Specific gravity (U) [Rel density] 1.015 1.002-1.030 [facility] Urobilinogen Auto test strip Ql (U)Ordered By: Kianna Izquierdo on 06-20-2023 Urobilinogen Ql (U) Normal mg/dl Normal [facility] Erythrocyte sedimentation ra teOrdered By: Kianna Izquierdo on 06-01-2023 ESR (Bld) [Velocity] 8 mm/h 0-30 [facility] No Panel Informationon 06-01 Normal appearance of the patient's right total knee arthroplasty. Moderate osteoarthritis of the medial compartment of the left knee. Report Dictated on Electronically Signed By: Troy Rubin MD Electronically Signed Date/Time: 06/01/2023 8:30 AM EDT [facility] Patient Name: ANDRE BLANCA : 1950 [...] the right knee. Soft tissues are unremarkable. [facility] Troy Rubin MD - 06/01/2023 Patient [...] Electronically Signed Date/Time: 06/01/2023 8:30 AM EDT [facility] No Panel InformationOrdered By: Troy Rubin on 06-01-2023 [facility] Work Phone: Serum or plasma C reactive p rotein measurement (mass/volume)Ordered By: Kianna Izquierdo on 06-01-2023 CRP [Mass/Vol] 10.20 mg/L 0.0-3.0 [facility] Comment on above: C-Reactive Protein ( CRP) provides useful information for thediagnosis, therapy and monitoring of inflammatory processesand associated diseases. For the evaluation of Relative Riskfor Cardiovascular Disease, a High Sensitivity CRP (HSCRP)should be ordered. XR Knee - right 1 or 2 Views on 06-01-2023 Patient Name: ANDRE BLANCA : 1950 Exam [...] the right knee. Soft tissues are unremarkable. [facility] Troy Rubin MD - 06/01/2023 [...] Electronically Signed Date/Time: 06/01/2023 8:30 AM EDT [facility] No Panel Informationon 05-31 Radiology Study observation (narrative) [facility] [employer] Basophil percentageOrdered B y: Kianna Izquierdo on 04-25-2023 Cholesterol [Mass/Vol] 141 mg/dL <200 [facility] Comment on above: <200 mg/dL Desirable 200-240 mg/dL Borderline >240 mg/dL High Risk Triglyceride [Mass/Vol] 84 mg/dL <199 [facility] Comment on above: The drugs N-Acetylcy steine and Metamizole may falsely depress this assay.Serum Triglycerides Reference Interval Normal <150 mg/dL Borderline high 150 - 199 mg/dL High 200 - 499 mg/dL Very High > or = 500 mg/dL Serum or plasma cholesterol in HDL measurement (mass/volume)Ordered By: Kianna Izquierdo on 04-25-2023 Cholesterol in HDL [Mass/Vol] 44 mg/dL >40 [facility] Comment on above: The drugs N-Acetylcy steine and Metamizole may falsely depress this assay. Reference Range HDL <40 mg/dL Low HDL Cholesterol HDL >or= 60 mg/dL High HDL Cholesterol Serum or plasma cholesterol in VLDL measurement (mass/volume)Ordered By: Kianna Izquierdo on 04-25-2023 Cholesterol in VLDL [Mass/Vol] 17 mg/dL 5-40 [facility] Serum or plasma low density lipoprotein (LDL) cholesterol measurement (mass/volume)Ordered By: Kianna Izquierdo on 04-25-2023 Cholesterol in LDL [Mass/Vol] 80 mg/dL 0-130 [facility] No Panel Informationon 02-08 1. Right knee edema. 2. 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 3. Sizable right knee joint effusion. Report Dictated on Electronically Signed By: Ajay Oden Electronically Signed Date/Time: 02/08/2023 3:12 PM EDT [facility] Patient Name: ANDRE BLANCA DOB: 1950 Exam [...] The bone mineralization is within normal limits. [facility] Ajay Oden MD - 02/08/2023 [...] Electronically Signed Date/Time: 02/08/2023 3:12 PM EDT [facility] [employer] Radiology Study observation (narrative) [facility] No Panel InformationOrdered By: Ajay Oden on 02-08-2023 [facility] Work Phone: XR Knee - right 1 or 2 Views on 02-08-2023 Patient Name: ANDRE BLANCA : 1950 Exam [...] The bone mineralization is within normal limits. [facility] Ajay Oden MD - 02/08/2023 [...] Electronically Signed Date/Time: 02/08/2023 3:12 PM EDT [facility] No Panel InformationOrdered By: Kianna Izquierdo on 02-06-2023 Miscellaneous Test See comment [facility] Comment on above: TEST RESULTS LIMITSC arbamazepine(Tegretol), S 7.9 ug/mL 4.0-12.0 In conjunction with other antiepileptic drugs Therapeutic 4.0 - 8.0 Toxicity 9.0 - 12.0 Carbamazepine alone Therapeutic 8.0 - 12.0 Detection Limit = 2.0 <2.0 indicates None Detected TESTING PERFORMED AT [facility]. ORIGINAL REPORT ON FILE IN LAB CONTAINS ADDITIONAL TEST SITE INFORMATION. No Panel InformationOrdered By: Kianna Izquierdo on 01-31-2023 Miscellaneous Test See comment [facility] Comment on above: TEST RESULT LIMITSCa rbamazepine(Tegretol), [...] [Moles/Vol] 6 mmol/L 3 - 13 mmol/L [facility] Calcium [Mass/Vol] 8.5 mg/dL 8.4 - 10. 4 mg/dL [facility] Chloride [Moles/Vol] 101 mmol/L 98 - 10 7 mmol/L [facility] CO2 [Moles/Vol] 29 mmol/L 22 - 30 mmol/L [facility] Creatinine [Mass/Vol] 0.62 mg/dL 0.52 - 1.04 mg/dL [facility] GFR/1.73 sq M.predicted MDRD (S/P/Bld) [Vol rate/Area] - PINF [facility] Comment on above: Calculation based on the Chronic Kidney Disease Epidemiology Collaboration (CKD-EPI) equation refit without adjustment for race Glucose [Mass/Vol] 150 mg/dL High 70 - 100 mg/dL [facility] Interpretation and review of laboratory results Abnormal [facility] Potassium [Moles/Vol] 3.9 mmol/L 3.5 - 5.1 mmol/L [facility] Sodium [Moles/Vol] 136 mmol/L 135 - 145 mmol/L [facility] Urea nitrogen [Mass/Vol] 11 mg/dL 7 - 17 mg/dL [facility] Hemoglobin (Bld) [Mass/Vol]O rdered By: Mukund Buchanan on 01-13-2023 Hematocrit (Bld) [Volume fraction] 33.6 % Low 35.0 - 47.0 % [facility] Interpretation and review of laboratory results Abnormal [facility] Laboratory - Hematology and Cell countsOrdered By: Mukund Buchanan on 01-13-2023 Hemoglobin (Bld) [Mass/Vol] 10.9 g/dL Low 11.7 - 16.0 g/dL [facility] No Panel InformationOrdered By: Jose Reynoso on 01-13-2023 P [place] 64 degrees [employer] Phone: CA Interval 212 ms [employer] Phone: QRS [place] 78 degrees [employer] Phone: QRSD Interval 136 ms [employer] Phone: QT Interval 436 ms [employer] Phone: QTC Interval 471 ms [employer] Phone: T Wave [place] 14 degrees [employer] Phone: [employer] Phone: No Panel Informationon 01-13 SINUS RHYTHM RIGHT BUNDLE BRANCH BLOCK Electronically Signed On 01-13-2023 11:09:43 EDT by Jose [employer] [facility], Jose Jeff MD - 01/13/2023 IMPRESSION: SINUS RHYTHM RIGHT BUNDLE BRANCH BLOCK Electronically Signed On 01-13-2023 11:09:43 EDT by Jose [employer] Vital signsOrdered By: Erica clarke [employer] on 01-13-2023 Heart rate 70 /min bpm [employer] Phone: Peripheral Blockon 3 FREDERICK Copeland CRNA 01/12/2023 1:26 PM Peripheral Block Time Out: 01/12/2023 1:09 PM Patient location during procedure: post-op Start time: 01/12/2023 1:09 PM End time: 01/12/2023 1:22 PM Reason for block: at surgeon's request and post-op pain management Staffing Performed: BISTRO SERVER Resident/BISTRO SERVER: FREDERICK Copeland CRNA Preanesthetic Checklist Completed: patient identified, IV checked, site marked, risks and benefits discussed, surgical consent, monitors and equipment checked, pre-op evaluation and timeout performed Region: Lower Extremities Primary: Adductor Canal Peripheral Block Patient position: supine Prep: ChloraPrep Patient monitoring: heart rate, library monitor, continuous pulse ox and continuous capnometry [...] Injection 30 mL - 01/12/2023 1:09:00 PM [facility] Spinal Blockon 01-12-2023 FREDERICK Courtney CRNA 01/12/2023 11:02 AM Spinal Block Time Out: 01/12/2023 10:54 AM Patient location during procedure: OR Start time: 01/12/2023 10:55 AM End time: 01/12/2023 11:02 AM Reason for block: primary anesthetic Staffing Performed: BISTRO SERVER Resident/BISTRO SERVER: FREDERICK Courtney CRNA Preanesthetic Checklist Completed: patient [...] Free flow CSF. No Heme. No Parathesia [facility] Basophil percentageOrdered B y: Kianna Izquierdo on 01-04-2023 Chloride [Moles/Vol] 105 mmol/L 98-107 [facility] Glucose [Mass/Vol] 93 mg/dL 74-106 [facility] Potassium [Moles/Vol] 3.6 mmol/L 3.5-5.1 [facility] Sodium [Moles/Vol] 143 mmol/L 136-145 [facility] Laboratory - Chemistry and C hemistry - challengeOrdered By: Kianna Izquierdo on 01-04-2023 CO2 [Moles/Vol] 31.0 mmol/L 21.0-32.0 [facility] Urea nitrogen/Creatinine [Mass ratio] 15.7 mg/mg 10-20 [facility] No Panel InformationOrdered By: Kianna Izquierdo on 01-04-2023 Estimated GFR (MDRD) Amer 106 mL/min >60 [facility] Comment on above: GFR Calc Estimated GFR (MDRD) Non-Af Amer 87 mL/min >60 [facility] Comment on above: Non- GFR Calc Serum or plasma calcium carlie urement (mass/volume)Ordered By: Kianna Izquierdo on 01-04-2023 Calcium [Mass/Vol] 8.8 mg/dL 8.5-10.1 [facility] Serum or plasma creatinine m easurement (mass/volume)Ordered By: Kianna Izquierdo on 01-04-2023 Creatinine [Mass/Vol] 0.70 mg/dL 0.55-1.02 [facility] Comment on above: The validity of the calculated GFR & GFRAA in patients over 70 years has not been determined. Clinical correlation is essential. Serum or plasma urea nitroge n measurement (mass/volume)Ordered By: Kianna Izquierdo on 01-04-2023 Urea nitrogen [Mass/Vol] 11 mg/dL 02-28 [facility] Thin prep Papanicolaou smear with manual screeningOrdered By: Kianna Izquierdo on 01-04-2023 Thin prep Papanicolaou smear with manual screening 7 - [facility] Basophil percentageOrdered B y: Kianna Izquierdo on 12-26-2022 Bilirubin [Mass/Vol] 0.20 mg/dL 0.20-1.00 [facility] Comment on above: For patients on eltr ombopag therapy, use of Dimension [place] TBIL is not recommended. Chloride [Moles/Vol] 105 mmol/L 98-107 [facility] Glucose [Mass/Vol] 93 mg/dL 74-106 [facility] Potassium [Moles/Vol] 3.5 mmol/L 3.5-5.1 [facility] Protein [Mass/Vol] 6.5 g/dL 6.4-8.2 [facility] Sodium [Moles/Vol] 143 mmol/L 136-145 [facility] WBC (Bld) [#/Vol] 7.2 10*3/uL 4.4-11.0 [facility] Blood erythrocytes count (nu mber/volume)Ordered By: Kianna Izquierdo on 12-26-2022 RBC (Bld) [#/Vol] 3.96 10*6/uL 4.2-5.4 [facility] Blood hemoglobin measurement (mass/volume)Ordered By: Kianna Izquierdo on 12-26-2022 Hemoglobin (Bld) [Mass/Vol] 11.2 g/dL 12.0-15.0 [facility] Blood platelet mean volumeOr dered By: Kianna Izquierdo on 12-26-2022 Platelet mean volume (Bld) [Entitic vol] 10.2 fL 6.2-12.0 [facility] Determination of erythrocyte mean corpuscular volume (MCV)Ordered By: Kianna Izquierdo on 12-26-2022 MCV (RBC) [Entitic vol] 91.2 fL 81-99 [facility] Hematocrit Auto (Bld) [Volum e fraction]Ordered By: Kianna Izquierdo on 12-26-2022 Hematocrit (Bld) [Volume fraction] 36.1 % 37-47 [facility] Laboratory - Chemistry and C hemistry - challengeOrdered By: Kianna Izquierdo on 12-26-2022 ALP [Catalytic activity/Vol] 124 U/L 45-117 [facility] ALT [Catalytic activity/Vol] 18 U/L 13-56 [facility] CO2 [Moles/Vol] 32.0 mmol/L 21.0-32.0 [facility] Globulin (S) [Mass/Vol] 3.6 g/dL 2.2-4.2 [facility] Urea nitrogen/Creatinine [Mass ratio] 15.9 mg/mg 10-20 [facility] - Hematology and Cell countsOrdered By: Kianna Izquierdo on 12-26-2022 Erythrocyte distribution width (RBC) [Entitic vol] 48.0 fL 35.1-43.9 [facility] Erythrocyte distribution width (RBC) [Ratio] 14.2 % 11.6-14.6 [facility] MCH (RBC) [Entitic mass] 28.3 pg 27.0-32.0 [facility] MCHC Auto (RBC) [Mass/Vol]Or dered By: Kianna Izquierdo on 12-26-2022 MCHC (RBC) [Mass/Vol] 31.0 g/dL 32-36 [facility] No Panel InformationOrdered By: Kianna Izquierdo on 12-26-2022 Estimated GFR (MDRD) Amer 106 mL/min >60 [facility] Comment on above: GFR Calc Estimated GFR (MDRD) Non-Af Amer 88 mL/min >60 [facility] Comment on above: Non- GFR Calc Platelets bldOrdered By: Apple Izquierdo on 12-26-2022 Platelets (Bld) [#/Vol] 241 10*3/uL 150-450 [facility] Serum or plasma albumin carlie urement (mass/volume)Ordered By: Kianna Izquierdo on 12-26-2022 Albumin [Mass/Vol] 2.9 g/dL 3.2-5.0 [facility] Serum or plasma albumin/glob ulin mass ratioOrdered By: Kianna Izquierdo on 12-26-2022 Albumin/Globulin [Mass ratio] 0.8 {ratio} 0.9-2.4 [facility] Serum or plasma calcium carlie urement (mass/volume)Ordered By: Kianna Izquierdo on 12-26-2022 Calcium [Mass/Vol] 8.3 mg/dL 8.5-10.1 [facility] Serum or plasma creatinine m easurement (mass/volume)Ordered By: Kianna Izquierdo on 12-26-2022 Creatinine [Mass/Vol] 0.69 mg/dL 0.55-1.02 [facility] Comment on above: The validity of the calculated GFR & GFRAA in patients over 70 years has not been determined. Clinical correlation is essential. Serum or plasma urea nitroge n measurement (mass/volume)Ordered By: Kianna Izquierdo on 12-26-2022 Urea nitrogen [Mass/Vol] 11 mg/dL 7-18 [facility] Thin prep Papanicolaou smear with manual screeningOrdered By: Kianna Izquierdo on 12-26-2022 Thin prep Papanicolaou smear with manual screening 17 U/L 15-37 [facility] Thin prep Papanicolaou smear with manual screening 6 5-15 [facility] Basophil percentageOrdered B y: Kianna Izquierdo on 12-19-2022 Chloride [Moles/Vol] 106 mmol/L 98-107 [facility] Glucose [Mass/Vol] 83 mg/dL 74-106 [facility] Potassium [Moles/Vol] 4.0 mmol/L 3.5-5.1 [facility] Sodium [Moles/Vol] 145 mmol/L 136-145 [facility] WBC (Bld) [#/Vol] 6.9 10*3/uL 4.4-11.0 [facility] Blood erythrocytes count (nu mber/volume)Ordered By: Kianna Izquierdo on 12-19-2022 RBC (Bld) [#/Vol] 3.81 10*6/uL 4.2-5.4 [facility] Blood hemoglobin measurement (mass/volume)Ordered By: Kianna Izquierdo on 12-19-2022 Hemoglobin (Bld) [Mass/Vol] 11.0 g/dL 12.0-15.0 [facility] Blood platelet mean volumeOr dered By: Kianna Izquierdo on 12-19-2022 Platelet mean volume (Bld) [Entitic vol] 10.8 fL 6.2-12.0 [facility] Determination of erythrocyte mean corpuscular volume (MCV)Ordered By: Kianna Izquierdo on 12-19-2022 MCV (RBC) [Entitic vol] 92.1 fL 81-99 [facility] Hematocrit Auto (Bld) [Volum e fraction]Ordered By: Kianna Izquierdo on 12-19-2022 Hematocrit (Bld) [Volume fraction] 35.1 % 37-47 [facility] - Chemistry and C hemistry - challengeOrdered By: Kianna Izquierdo on 12-19-2022 CO2 [Moles/Vol] 33.0 mmol/L 21.0-32.0 [facility] Urea nitrogen/Creatinine [Mass ratio] 14.1 mg/mg 10-20 [facility] - Hematology and Cell countsOrdered By: Kianna Izquierdo on 12-19-2022 Erythrocyte distribution width (RBC) [Entitic vol] 49.1 fL 35.1-43.9 [facility] Erythrocyte distribution width (RBC) [Ratio] 14.6 % 11.6-14.6 [facility] MCH (RBC) [Entitic mass] 28.9 pg 27.0-32.0 [facility] MCHC Auto (RBC) [Mass/Vol]Or dered By: Kianna Izquierdo on 12-19-2022 MCHC (RBC) [Mass/Vol] 31.3 g/dL 32-36 [facility] No Panel InformationOrdered By: Kianna Izquierdo on 12-19-2022 Estimated GFR (MDRD) Amer 93 mL/min >60 [facility] Comment on above: GFR Calc Estimated GFR (MDRD) Non-Af Amer 77 mL/min >60 [facility] Comment on above: Non- GFR Calc Platelets bldOrdered By: Apple Izquierdo on 12-19-2022 Platelets (Bld) [#/Vol] 261 10*3/uL 150-450 [facility] Serum or plasma calcium carlie urement (mass/volume)Ordered By: Kianna Izquierdo on 12-19-2022 Calcium [Mass/Vol] 8.8 mg/dL 8.5-10.1 [facility] Serum or plasma creatinine m easurement (mass/volume)Ordered By: Kianna Izquierdo on 12-19-2022 Creatinine [Mass/Vol] 0.78 mg/dL 0.55-1.02 [facility] Comment on above: The validity of the calculated GFR & GFRAA in patients over 70 years has not been determined. Clinical correlation is essential. Serum or plasma urea nitroge n measurement (mass/volume)Ordered By: Kianna Izquierdo on 12-19-2022 Urea nitrogen [Mass/Vol] 11 mg/dL 7-18 [facility] Thin prep Papanicolaou smear with manual screeningOrdered By: Kianna Izquierdo on 12-19-2022 Thin prep Papanicolaou smear with manual screening 6 5-15 [facility] Basophil percentageOrdered B y: Kianna Izquierdo on 12-01-2022 Chloride [Moles/Vol] 105 mmol/L 98-107 [facility] Glucose [Mass/Vol] 89 mg/dL 74-106 [facility] Potassium [Moles/Vol] 3.8 mmol/L 3.5-5.1 [facility] Sodium [Moles/Vol] 140 mmol/L 136-145 [facility] Laboratory - Chemistry and C hemistry - challengeOrdered By: Kianna Izquierdo on 12-01-2022 CO2 [Moles/Vol] 34.0 mmol/L 21.0-32.0 [facility] Urea nitrogen/Creatinine [Mass ratio] 16.0 mg/mg - [facility] No Panel InformationOrdered By: Kianna Izquierdo on 12-01-2022 Estimated GFR (MDRD) Amer 88 mL/min >60 [facility] Comment on above: GFR Calc Estimated GFR (MDRD) Non-Af Amer 73 mL/min >60 [facility] Comment on above: Non- GFR Calc Serum or plasma calcium carlie urement (mass/volume)Ordered By: Kianna Izquierdo on 12-01-2022 Calcium [Mass/Vol] 8.8 mg/dL 8.5-10.1 [facility] Serum or plasma creatinine m easurement (mass/volume)Ordered By: Kianna Izquierdo on 12-01-2022 Creatinine [Mass/Vol] 0.82 mg/dL 0.55-1.02 [facility] Comment on above: The validity of the calculated GFR & GFRAA in patients over 70 years has not been determined. Clinical correlation is essential. Serum or plasma urea nitroge n measurement (mass/volume)Ordered By: Kianna Izquierdo on 12-01-2022 Urea nitrogen [Mass/Vol] 13 mg/dL 7-18 [facility] Thin prep Papanicolaou smear with manual screeningOrdered By: Kianna Izquierdo on 12-01-2022 Thin prep Papanicolaou smear with manual screening 1 5-15 [facility] Basophil percentageOrdered B y: Kianna Izquierdo on 11-24-2022 Chloride [Moles/Vol] 105 mmol/L 98-107 [facility] Glucose [Mass/Vol] 82 mg/dL 74-106 [facility] Potassium [Moles/Vol] 3.3 mmol/L 3.5-5.1 [facility] Sodium [Moles/Vol] 143 mmol/L 136-145 [facility] WBC (Bld) [#/Vol] 7.0 10*3/uL 4.4-11.0 [facility] Blood erythrocytes count (nu mber/volume)Ordered By: Kianna Izquierdo on 11-24-2022 RBC (Bld) [#/Vol] 3.73 10*6/uL 4.2-5.4 [facility] Blood hemoglobin measurement (mass/volume)Ordered By: Kianna Izquierdo on 11-24-2022 Hemoglobin (Bld) [Mass/Vol] 10.5 g/dL 12.0-15.0 [facility] Blood platelet mean volumeOr dered By: Kianna Izquierdo on 11-24-2022 Platelet mean volume (Bld) [Entitic vol] 10.1 fL 6.2-12.0 [facility] Determination of erythrocyte mean corpuscular volume (MCV)Ordered By: Kianna Izquierdo on 11-24-2022 MCV (RBC) [Entitic vol] 89.0 fL 81-99 [facility] Hematocrit Auto (Bld) [Volum e fraction]Ordered By: Kianna Izquierdo on 11-24-2022 Hematocrit (Bld) [Volume fraction] 33.2 % 37-47 [facility] - Chemistry and C hemistry - challengeOrdered By: Kianna Izquierdo on 11-24-2022 CO2 [Moles/Vol] 33.0 mmol/L 21.0-32.0 [facility] Urea nitrogen/Creatinine [Mass ratio] 12.9 mg/mg 10-20 [facility] - Hematology and Cell countsOrdered By: Kianna Izquierdo on 11-24-2022 Erythrocyte distribution width (RBC) [Entitic vol] 50.9 fL 35.1-43.9 [facility] Erythrocyte distribution width (RBC) [Ratio] 15.5 % 11.6-14.6 [facility] MCH (RBC) [Entitic mass] 28.2 pg 27.0-32.0 [facility] [Mass/Vol]Or dered By: Kianna Izquierdo on 11-24-2022 MCHC (RBC) [Mass/Vol] 31.6 g/dL 32-36 [facility] No Panel InformationOrdered By: Kianna Izquierdo on 11-24-2022 Estimated GFR (MDRD) Amer 121 mL/min >60 [facility] Comment on above: GFR Calc Estimated GFR (MDRD) Non-Af Amer 100 mL/min >60 [facility] Comment on above: Non- GFR Calc Platelets bldOrdered By: Pet viviana Izquierdo on 11-24-2022 Platelets (Bld) [#/Vol] 259 10*3/uL 150-450 [facility] Serum or plasma calcium carlie urement (mass/volume)Ordered By: Kianna Izquierdo on 11-24-2022 Calcium [Mass/Vol] 8.8 mg/dL 8.5-10.1 [facility] Serum or plasma creatinine m easurement (mass/volume)Ordered By: Kianna Izquierdo on 11-24-2022 Creatinine [Mass/Vol] 0.62 mg/dL 0.55-1.02 [facility] Comment on above: The validity of the calculated GFR & GFRAA in patients over 70 years has not been determined. Clinical correlation is essential. Serum or plasma urea nitroge n measurement (mass/volume)Ordered By: Kianna Izquierdo on 11-24-2022 Urea nitrogen [Mass/Vol] 8 mg/dL 7-18 [facility] Thin prep Papanicolaou smear with manual screeningOrdered By: Kianna Izquierdo on 11-24-2022 Thin prep Papanicolaou smear with manual screening 5 5-15 [facility] Basophil percentageOrdered B y: Kianna Izquierdo on 11-17-2022 Chloride [Moles/Vol] 103 mmol/L 98-107 [facility] Glucose [Mass/Vol] 127 mg/dL 74-106 [facility] Comment on above: Fasting Glucose resu lt greater than or equal to 126 mg/dL suggests DIABETES MELLITUS per A.D.A. criteria. Potassium [Moles/Vol] 3.4 mmol/L 3.5-5.1 [facility] Sodium [Moles/Vol] 141 mmol/L 136-145 [facility] WBC (Bld) [#/Vol] 6.0 10*3/uL 4.4-11.0 [facility] Blood erythrocytes count (nu mber/volume)Ordered By: Kianna Izquierdo on 11-17-2022 RBC (Bld) [#/Vol] 3.76 10*6/uL 4.2-5.4 [facility] Blood hemoglobin measurement (mass/volume)Ordered By: Kianna Izquierdo on 11-17-2022 Hemoglobin (Bld) [Mass/Vol] 10.5 g/dL 12.0-15.0 [facility] Blood platelet mean volumeOr dered By: Kianna Izquierdo on 11-17-2022 Platelet mean volume (Bld) [Entitic vol] 10.2 fL 6.2-12.0 [facility] Determination of erythrocyte mean corpuscular volume (MCV)Ordered By: Kianna Izquierdo on 11-17-2022 MCV (RBC) [Entitic vol] 90.2 fL 81-99 [facility] Hematocrit Auto (Bld) [Volum e fraction]Ordered By: Kianna Izquierdo on 11-17-2022 Hematocrit (Bld) [Volume fraction] 33.9 % 37-47 [facility] - Chemistry and C hemistry - challengeOrdered By: Kianna Izquierdo on 11-17-2022 CO2 [Moles/Vol] 35.0 mmol/L 21.0-32.0 [facility] Urea nitrogen/Creatinine [Mass ratio] 12.2 mg/mg 10-20 [facility] - Hematology and Cell countsOrdered By: Kianna Izquierdo on 11-17-2022 Erythrocyte distribution width (RBC) [Entitic vol] 51.2 fL 35.1-43.9 [facility] Erythrocyte distribution width (RBC) [Ratio] 15.5 % 11.6-14.6 [facility] MCH (RBC) [Entitic mass] 27.9 pg 27.0-32.0 [facility] MCHC Auto (RBC) [Mass/Vol]Or dered By: Kianna Izquierdo on 11-17-2022 MCHC (RBC) [Mass/Vol] 31.0 g/dL 32-36 [facility] No Panel InformationOrdered By: Kianna Izquierdo on 11-17-2022 Estimated GFR (MDRD) Amer 113 mL/min >60 [facility] Comment on above: GFR Calc Estimated GFR (MDRD) Non-Af Amer 94 mL/min >60 [facility] Comment on above: Non- GFR Calc Platelets bldOrdered By: Apple Izquierdo on 11-17-2022 Platelets (Bld) [#/Vol] 249 10*3/uL 150-450 [facility] Serum or plasma calcium carlie urement (mass/volume)Ordered By: Kianna Izquierdo on 11-17-2022 Calcium [Mass/Vol] 8.6 mg/dL 8.5-10.1 [facility] Serum or plasma creatinine m easurement (mass/volume)Ordered By: Kianna Izquierdo on 11-17-2022 Creatinine [Mass/Vol] 0.66 mg/dL 0.55-1.02 [facility] Comment on above: The validity of the calculated GFR & GFRAA in patients over 69 years has not been determined. Clinical correlation is essential. Serum or plasma urea nitroge n measurement (mass/volume)Ordered By: Kianna Izquierdo on 11-17-2022 Urea nitrogen [Mass/Vol] 8 mg/dL 7-18 [facility] Thin prep Papanicolaou smear with manual screeningOrdered By: Kianna Izquierdo on 11-17-2022 Thin prep Papanicolaou smear with manual screening 3 5-15 [facility] Basophil percentageOrdered B y: Kianna Izquierdo on 10-19-2022 Chloride [Moles/Vol] 108 mmol/L 98-107 [facility] Glucose [Mass/Vol] 116 mg/dL 74-106 [facility] Comment on above: Fasting Glucose resu lt from 100 to 125 mg/dL suggests IMPAIRED HOMEOSTASIS per A.D.A. criteria. Potassium [Moles/Vol] 3.9 mmol/L 3.5-5.1 [facility] Sodium [Moles/Vol] 144 mmol/L 136-145 [facility] Laboratory - Chemistry and C hemistry - challengeOrdered By: Kianna Izquierdo on 10-19-2022 CO2 [Moles/Vol] 29.0 mmol/L 21.0-32.0 [facility] Urea nitrogen/Creatinine [Mass ratio] 17.0 mg/mg 10-20 [facility] No Panel InformationOrdered By: Kianna Izquierdo on 10-19-2022 Estimated GFR (MDRD) Amer 95 mL/min >60 [facility] Comment on above: GFR Calc Estimated GFR (MDRD) Non-Af Amer 79 mL/min >60 [facility] Comment on above: Non- GFR Calc Thyroid Stimulating Hormone (TSH) < 0.01 uIU/mL 0.358-3.74 [facility] Serum or plasma calcium carlie urement (mass/volume)Ordered By: Kianna Izquierdo on 10-19-2022 Calcium [Mass/Vol] 8.4 mg/dL 8.5-10.1 [facility] Serum or plasma creatinine m easurement (mass/volume)Ordered By: Kianna Izquierdo on 10-19-2022 Creatinine [Mass/Vol] 0.77 mg/dL 0.55-1.02 [facility] Comment on above: The validity of the calculated GFR & GFRAA in patients over 70 years has not been determined. Clinical correlation is essential. Serum or plasma urea nitroge n measurement (mass/volume)Ordered By: Kianna Izquierdo on 10-19-2022 Urea nitrogen [Mass/Vol] 13 mg/dL 7-18 [facility] Thin prep Papanicolaou smear with manual screeningOrdered By: Kianna Izquierdo on 10-19-2022 Thin prep Papanicolaou smear with manual screening 7 5-15 [facility] Basophil percentageOrdered B y: Kianna Izquierdo on 10-17-2022 Chloride [Moles/Vol] 105 mmol/L 98-107 [facility] Glucose [Mass/Vol] 121 mg/dL 74-106 [facility] Comment on above: Fasting Glucose resu lt from 100 to 125 mg/dL suggests IMPAIRED HOMEOSTASIS per A.D.A. criteria. Potassium [Moles/Vol] 3.0 mmol/L 3.5-5.1 [facility] Sodium [Moles/Vol] 143 mmol/L 136-145 [facility] WBC (Bld) [#/Vol] 6.5 10*3/uL 4.4-11.0 [facility] Blood erythrocytes count (nu mber/volume)Ordered By: Kianna Izquierdo on 10-17-2022 RBC (Bld) [#/Vol] 3.90 10*6/uL 4.2-5.4 [facility] Blood hemoglobin measurement (mass/volume)Ordered By: Kianna Izquierdo on 10-17-2022 Hemoglobin (Bld) [Mass/Vol] 10.4 g/dL 12.0-15.0 [facility] Blood platelet mean volumeOr dered By: Kianna Izquierdo on 10-17-2022 Platelet mean volume (Bld) [Entitic vol] 10.4 fL 6.2-12.0 [facility] Determination of erythrocyte mean corpuscular volume (MCV)Ordered By: Kianna Izquierdo on 10-17-2022 MCV (RBC) [Entitic vol] 88.7 fL 81-99 [facility] Hematocrit Auto (Bld) [Volum e fraction]Ordered By: Kianna Izquierdo on 10-17-2022 Hematocrit (Bld) [Volume fraction] 34.6 % 37-47 [facility] Laboratory - Chemistry and C hemistry - challengeOrdered By: Kianna Izquierdo on 10-17-2022 CO2 [Moles/Vol] 31.0 mmol/L 21.0-32.0 [facility] Urea nitrogen/Creatinine [Mass ratio] 10.0 mg/mg 10-20 [facility] Laboratory - Hematology and Cell countsOrdered By: Kianna Izquierdo on 10-17-2022 Erythrocyte distribution width (RBC) [Entitic vol] 52.4 fL 35.1-43.9 [facility] Erythrocyte distribution width (RBC) [Ratio] 16.2 % 11.6-14.6 [facility] MCH (RBC) [Entitic mass] 26.7 pg 27.0-32.0 [facility] MCHC Auto (RBC) [Mass/Vol]Or dered By: Kianna Izquierdo on 10-17-2022 MCHC (RBC) [Mass/Vol] 30.1 g/dL 32-36 [facility] No Panel InformationOrdered By: Kianna Izquierdo on 10-17-2022 Estimated GFR (MDRD) Amer 126 mL/min >60 [facility] Comment on above: GFR Calc Estimated GFR (MDRD) Non-Af Amer 105 mL/min >60 [facility] Comment on above: Non- GFR Calc Platelets bldOrdered By: Apple Izquierdo on 10-17-2022 Platelets (Bld) [#/Vol] 251 10*3/uL 150-450 [facility] Serum or plasma calcium carlie urement (mass/volume)Ordered By: Kianna Izquierdo on 10-17-2022 Calcium [Mass/Vol] 8.5 mg/dL 8.5-10.1 [facility] Serum or plasma creatinine m easurement (mass/volume)Ordered By: Kianna Izquierdo on 10-17-2022 Creatinine [Mass/Vol] 0.60 mg/dL 0.55-1.02 [facility] Comment on above: The validity of the calculated GFR & GFRAA in patients over 70 years has not been determined. Clinical correlation is essential. Serum or plasma urea nitroge n measurement (mass/volume)Ordered By: Kianna Izquierdo on 10-17-2022 Urea nitrogen [Mass/Vol] 6 mg/dL 7-18 [facility] Thin prep Papanicolaou smear with manual screeningOrdered By: Kianna Izquierdo on 10-17-2022 Thin prep Papanicolaou smear with manual screening 7 5-15 [facility] Basophil percentageOrdered B y: Kianna Izquierdo on 09-26-2022 Chloride [Moles/Vol] 106 mmol/L 98-107 [facility] Glucose [Mass/Vol] 92 mg/dL 74-106 [facility] Potassium [Moles/Vol] 3.7 mmol/L 3.5-5.1 [facility] Sodium [Moles/Vol] 141 mmol/L 136-145 [facility] Laboratory - Chemistry and C hemistry - challengeOrdered By: Kianna Izquierdo on 09-26-2022 CO2 [Moles/Vol] 29.0 mmol/L 21.0-32.0 [facility] Urea nitrogen/Creatinine [Mass ratio] 12.5 mg/mg 10-20 [facility] No Panel InformationOrdered By: Kianna Izquierdo on 09-26-2022 Estimated GFR (MDRD) Amer 102 mL/min >60 [facility] Comment on above: GFR Calc Estimated GFR (MDRD) Non-Af Amer 85 mL/min >60 [facility] Comment on above: Non- GFR Calc Serum or plasma calcium carlie urement (mass/volume)Ordered By: Kianna Izquierdo on 09-26-2022 Calcium [Mass/Vol] 8.5 mg/dL 8.5-10.1 [facility] Serum or plasma creatinine m easurement (mass/volume)Ordered By: Kianna Izquierdo on 09-26-2022 Creatinine [Mass/Vol] 0.72 mg/dL 0.55-1.02 [facility] Comment on above: The validity of the calculated GFR & GFRAA in patients over 70 years has not been determined. Clinical correlation is essential. Serum or plasma urea nitroge n measurement (mass/volume)Ordered By: Kianna Izquierdo on 09-26-2022 Urea nitrogen [Mass/Vol] 9 mg/dL 7-18 [facility] Thin prep Papanicolaou smear with manual screeningOrdered By: Kianna Izquierdo on 09-26-2022 Thin prep Papanicolaou smear with manual screening 6 5-15 [facility] Clostridium difficile detect ion by polymerase chain reactionOrdered By: Kianna Izquierdo on 09-20-2022 C. difficile DNA KAMLA+probe Ql (Unsp spec) [facility] Basophil percentageOrdered B y: Kianna Izquierdo on 09-19-2022 Chloride [Moles/Vol] 107 mmol/L 98-107 [facility] Glucose [Mass/Vol] 100 mg/dL 74-106 [facility] Comment on above: Fasting Glucose resu lt from 100 to 125 mg/dL suggests IMPAIRED HOMEOSTASIS per A.D.A. criteria. Potassium [Moles/Vol] 3.4 mmol/L 3.5-5.1 [facility] Sodium [Moles/Vol] 145 mmol/L 136-145 [facility] WBC (Bld) [#/Vol] 7.5 10*3/uL 4.4-11.0 [facility] Blood erythrocytes count (nu mber/volume)Ordered By: Kianna Izquierdo on 09-19-2022 RBC (Bld) [#/Vol] 4.01 10*6/uL 4.2-5.4 [facility] Blood hemoglobin measurement (mass/volume)Ordered By: Kianna Izquierdo on 09-19-2022 Hemoglobin (Bld) [Mass/Vol] 10.6 g/dL 12.0-15.0 [facility] Blood platelet mean volumeOr dered By: Kianna Izquierdo on 09-19-2022 Platelet mean volume (Bld) [Entitic vol] 10.3 fL 6.2-12.0 [facility] Determination of erythrocyte mean corpuscular volume (MCV)Ordered By: Kianna Izquierdo on 09-19-2022 MCV (RBC) [Entitic vol] 83.8 fL 81-99 [facility] Hematocrit Auto (Bld) [Volum e fraction]Ordered By: Kianna Izquierdo on 09-19-2022 Hematocrit (Bld) [Volume fraction] 33.6 % 37-47 [facility] Laboratory - Chemistry and C hemistry - challengeOrdered By: Kianna Izquierdo on 09-19-2022 CO2 [Moles/Vol] 31.0 mmol/L 21.0-32.0 [facility] Urea nitrogen/Creatinine [Mass ratio] 12.5 mg/mg 10-20 [facility] Laboratory - Hematology and Cell countsOrdered By: Kianna Izquierdo on 09-19-2022 Erythrocyte distribution width (RBC) [Entitic vol] 51.5 fL 35.1-43.9 [facility] Erythrocyte distribution width (RBC) [Ratio] 16.9 % 11.6-14.6 [facility] MCH (RBC) [Entitic mass] 26.4 pg 27.0-32.0 [facility] MCHC Auto (RBC) [Mass/Vol]Or dered By: Kianna Izquierdo on 09-19-2022 MCHC (RBC) [Mass/Vol] 31.5 g/dL 32-36 [facility] No Panel InformationOrdered By: Kianna Izquierdo on 09-19-2022 Estimated GFR (MDRD) Amer 117 mL/min >60 [facility] Comment on above: GFR Calc Estimated GFR (MDRD) Non-Af Amer 97 mL/min >60 [facility] Comment on above: Non- GFR Calc Platelets bldOrdered By: Apple Izquierdo on 09-19-2022 Platelets (Bld) [#/Vol] 261 10*3/uL 150-450 [facility] Serum or plasma calcium carlie urement (mass/volume)Ordered By: Kianna Izquierdo on 09-19-2022 Calcium [Mass/Vol] 8.9 mg/dL 8.5-10.1 [facility] Serum or plasma creatinine m easurement (mass/volume)Ordered By: Kianna Izquierdo on 09-19-2022 Creatinine [Mass/Vol] 0.64 mg/dL 0.55-1.02 [facility] Comment on above: The validity of the calculated GFR & GFRAA in patients over 70 years has not been determined. Clinical correlation is essential. Serum or plasma urea nitroge n measurement (mass/volume)Ordered By: Kianna Izquierdo on 09-19-2022 Urea nitrogen [Mass/Vol] 8 mg/dL 7-18 [facility] Thin prep Papanicolaou smear with manual screeningOrdered By: Kianna Izquierdo on 09-19-2022 Thin prep Papanicolaou smear with manual screening 7 5-15 [facility] Basophil percentageOrdered B y: Kianna Izquierdo on 08-18-2022 Chloride [Moles/Vol] 108 mmol/L 98-107 [facility] Glucose [Mass/Vol] 88 mg/dL 74-106 [facility] Potassium [Moles/Vol] 3.8 mmol/L 3.5-5.1 [facility] Sodium [Moles/Vol] 143 mmol/L 136-145 [facility] WBC (Bld) [#/Vol] 6.8 10*3/uL 4.4-11.0 [facility] Blood erythrocytes count (nu mber/volume)Ordered By: Kianna Izquierdo on 08-18-2022 RBC (Bld) [#/Vol] 3.98 10*6/uL 4.2-5.4 [facility] Blood hemoglobin measurement (mass/volume)Ordered By: Kianna Izquierdo on 08-18-2022 Hemoglobin (Bld) [Mass/Vol] 10.1 g/dL 12.0-15.0 [facility] Blood platelet mean volumeOr dered By: Kianna Izquierdo on 08-18-2022 Platelet mean volume (Bld) [Entitic vol] 10.1 fL 6.2-12.0 [facility] Determination of erythrocyte mean corpuscular volume (MCV)Ordered By: Kianna Izquierdo on 08-18-2022 MCV (RBC) [Entitic vol] 87.4 fL 81-99 [facility] Hematocrit Auto (Bld) [Volum e fraction]Ordered By: Kianna Izquierdo on 08-18-2022 Hematocrit (Bld) [Volume fraction] 34.8 % 37-47 [facility] Laboratory - Chemistry and C hemistry - challengeOrdered By: Kianna Izquierdo on 08-18-2022 CO2 [Moles/Vol] 31.0 mmol/L 21.0-32.0 [facility] Urea nitrogen/Creatinine [Mass ratio] 12.0 mg/mg 10-20 [facility] - Hematology and Cell countsOrdered By: Kianna Izquierdo on 08-18-2022 Erythrocyte distribution width (RBC) [Entitic vol] 50.2 fL 35.1-43.9 [facility] Erythrocyte distribution width (RBC) [Ratio] 15.9 % 11.6-14.6 [facility] MCH (RBC) [Entitic mass] 25.4 pg 27.0-32.0 [facility] MCHC Auto (RBC) [Mass/Vol]Or dered By: Kianna Izquierdo on 08-18-2022 MCHC (RBC) [Mass/Vol] 29.0 g/dL 32-36 [facility] No Panel InformationOrdered By: Kianna Izquierdo on 08-18-2022 Estimated GFR (MDRD) Amer 131 mL/min >60 [facility] Comment on above: GFR Calc Estimated GFR (MDRD) Non-Af Amer 108 mL/min >60 [facility] Comment on above: Non- GFR Calc Platelets bldOrdered By: Apple Izquierdo on 08-18-2022 Platelets (Bld) [#/Vol] 317 10*3/uL 150-450 [facility] Serum or plasma calcium carlie urement (mass/volume)Ordered By: Kianna Izquierdo on 08-18-2022 Calcium [Mass/Vol] 8.7 mg/dL 8.5-10.1 [facility] Serum or plasma creatinine m easurement (mass/volume)Ordered By: Kianna Izquierdo on 08-18-2022 Creatinine [Mass/Vol] 0.58 mg/dL 0.55-1.02 [facility] Comment on above: The validity of the calculated GFR & GFRAA in patients over 70 years has not been determined. Clinical correlation is essential. Serum or plasma urea nitroge n measurement (mass/volume)Ordered By: Kianna Izquierdo on 08-18-2022 Urea nitrogen [Mass/Vol] 7 mg/dL 7-18 [facility] Thin prep Papanicolaou smear with manual screeningOrdered By: Kianna Izquierdo on 08-18-2022 Thin prep Papanicolaou smear with manual screening 4 5-15 [facility] Basophil percentageOrdered B y: Kianna Izquierdo on 08-16-2022 Chloride [Moles/Vol] 105 mmol/L 98-107 [facility] Glucose [Mass/Vol] 99 mg/dL 74-106 [facility] Potassium [Moles/Vol] 3.1 mmol/L 3.5-5.1 [facility] Sodium [Moles/Vol] 143 mmol/L 136-145 [facility] WBC (Bld) [#/Vol] 6.7 10*3/uL 4.4-11.0 [facility] Blood erythrocytes count (nu mber/volume)Ordered By: Kianna Izquierdo on 08-16-2022 RBC (Bld) [#/Vol] 3.94 10*6/uL 4.2-5.4 [facility] Blood hemoglobin measurement (mass/volume)Ordered By: Kianna Izquierdo on 08-16-2022 Hemoglobin (Bld) [Mass/Vol] 10.1 g/dL 12.0-15.0 [facility] Blood platelet mean volumeOr dered By: Kianna Izquierdo on 08-16-2022 Platelet mean volume (Bld) [Entitic vol] 10.0 fL 6.2-12.0 [facility] Determination of erythrocyte mean corpuscular volume (MCV)Ordered By: Kianna Izquierdo on 08-16-2022 MCV (RBC) [Entitic vol] 84.5 fL 81-99 [facility] Hematocrit Auto (Bld) [Volum e fraction]Ordered By: Kianna Izquierdo on 08-16-2022 Hematocrit (Bld) [Volume fraction] 33.3 % 37-47 [facility] - Chemistry and C hemistry - challengeOrdered By: Kianna Izquierdo on 08-16-2022 CO2 [Moles/Vol] 30.0 mmol/L 21.0-32.0 [facility] Urea nitrogen/Creatinine [Mass ratio] 13.5 mg/mg 10-20 [facility] - Hematology and Cell countsOrdered By: Kianna Izquierdo on 08-16-2022 Erythrocyte distribution width (RBC) [Entitic vol] 47.9 fL 35.1-43.9 [facility] Erythrocyte distribution width (RBC) [Ratio] 15.6 % 11.6-14.6 [facility] MCH (RBC) [Entitic mass] 25.6 pg 27.0-32.0 [facility] MCHC Auto (RBC) [Mass/Vol]Or dered By: Kianna Izquierdo on 08-16-2022 MCHC (RBC) [Mass/Vol] 30.3 g/dL 32-36 [facility] No Panel InformationOrdered By: Kianna Izquierdo on 08-16-2022 Estimated GFR (MDRD) Amer 127 mL/min >60 [facility] Comment on above: GFR Calc Estimated GFR (MDRD) Non-Af Amer 105 mL/min >60 [facility] Comment on above: Non- GFR Calc Platelets bldOrdered By: Apple Izquierdo on 08-16-2022 Platelets (Bld) [#/Vol] 303 10*3/uL 150-450 [facility] Serum or plasma calcium carlie urement (mass/volume)Ordered By: Kianna Izquierdo on 08-16-2022 Calcium [Mass/Vol] 8.5 mg/dL 8.5-10.1 [facility] Serum or plasma creatinine m easurement (mass/volume)Ordered By: Kianna Izquierdo on 08-16-2022 Creatinine [Mass/Vol] 0.59 mg/dL 0.55-1.02 [facility] Comment on above: The validity of the calculated GFR & GFRAA in patients over 70 years has not been determined. Clinical correlation is essential. Serum or plasma urea nitroge n measurement (mass/volume)Ordered By: Kianna Izquierdo on 08-16-2022 Urea nitrogen [Mass/Vol] 8 mg/dL 7-18 [facility] Thin prep Papanicolaou smear with manual screeningOrdered By: Kinana Izquierdo on 08-16-2022 Thin prep Papanicolaou smear with manual screening 8 5-15 [facility] No Panel InformationOrdered By: Kianna Izquierdo on 08-03-2022 Vitamin D 25-Hydroxy 41.8 ng/mL [facility] Comment on above: Vitamin D 25(OH) Sta tus Range Deficiency <20 ng/mL (50nmol/L) Insufficiency 20 - 30 ng/mL (50 - 75 nmol/L) Sufficiency 30 - 100 ng/mL (75 - 250 nmol/L) Toxicity >100 ng/mL (>250 nmol/L) Basophil percentageOrdered B y: Kianna Izquierdo on 07-04-2022 Chloride [Moles/Vol] 104 mmol/L 98-107 [facility] Glucose [Mass/Vol] 98 mg/dL 74-106 [facility] Potassium [Moles/Vol] 4.0 mmol/L 3.5-5.1 [facility] Sodium [Moles/Vol] 140 mmol/L 136-145 [facility] WBC (Bld) [#/Vol] 6.5 10*3/uL 4.4-11.0 [facility] Blood erythrocytes count (nu mber/volume)Ordered By: Kianna Izquierdo on 07-04-2022 RBC (Bld) [#/Vol] 3.87 10*6/uL 4.2-5.4 [facility] Blood hemoglobin measurement (mass/volume)Ordered By: Kianna Izquierdo on 07-04-2022 Hemoglobin (Bld) [Mass/Vol] 10.4 g/dL 12.0-15.0 [facility] Blood platelet mean volumeOr dered By: Kianna Izquierdo on 07-04-2022 Platelet mean volume (Bld) [Entitic vol] 10.1 fL 6.2-12.0 [facility] Determination of erythrocyte mean corpuscular volume (MCV)Ordered By: Kianna Izquierdo on 07-04-2022 MCV (RBC) [Entitic vol] 88.9 fL 81-99 [facility] Hematocrit Auto (Bld) [Volum e fraction]Ordered By: Kianna Izquierdo on 07-04-2022 Hematocrit (Bld) [Volume fraction] 34.4 % 37-47 [facility] - Chemistry and C hemistry - challengeOrdered By: Kianna Izquierdo on 07-04-2022 CO2 [Moles/Vol] 32.0 mmol/L 21.0-32.0 [facility] Urea nitrogen/Creatinine [Mass ratio] 11.0 mg/mg 10-20 [facility] - Hematology and Cell countsOrdered By: Kianna Izquierdo on 07-04-2022 Erythrocyte distribution width (RBC) [Entitic vol] 47.1 fL 35.1-43.9 [facility] Erythrocyte distribution width (RBC) [Ratio] 14.6 % 11.6-14.6 [facility] MCH (RBC) [Entitic mass] 26.9 pg 27.0-32.0 [facility] MCHC Auto (RBC) [Mass/Vol]Or dered By: Kianna Izquierdo on 07-04-2022 MCHC (RBC) [Mass/Vol] 30.2 g/dL 32-36 [facility] No Panel InformationOrdered By: Kianna Izquierdo on 07-04-2022 Estimated GFR (MDRD) Amer 118 mL/min >60 [facility] Comment on above: GFR Calc Estimated GFR (MDRD) Non-Af Amer 98 mL/min >60 [facility] Comment on above: Non- GFR Calc Platelets bldOrdered By: Apple Izquierdo on 07-04-2022 Platelets (Bld) [#/Vol] 365 10*3/uL 150-450 [facility] Serum or plasma calcium carlie urement (mass/volume)Ordered By: Kianna Izquierdo on 07-04-2022 Calcium [Mass/Vol] 8.9 mg/dL 8.5-10.1 [facility] Serum or plasma creatinine m easurement (mass/volume)Ordered By: Kianna Izquierdo on 07-04-2022 Creatinine [Mass/Vol] 0.63 mg/dL 0.55-1.02 [facility] Comment on above: The validity of the calculated GFR & GFRAA in patients over 70 years has not been determined. Clinical correlation is essential. Serum or plasma urea nitroge n measurement (mass/volume)Ordered By: Kianna Izquierdo on 07-04-2022 Urea nitrogen [Mass/Vol] 7 mg/dL 7-18 [facility] Thin prep Papanicolaou smear with manual screeningOrdered By: Kianna Izquierdo on 07-04-2022 Thin prep Papanicolaou smear with manual screening 4 5-15 [facility] Basophil percentageOrdered B y: Kianna Izquierdo on 06-27-2022 Chloride [Moles/Vol] 101 mmol/L 98-107 [facility] Cholesterol [Mass/Vol] 140 mg/dL <200 [facility] Comment on above: <200 mg/dL Desirable 200-240 mg/dL Borderline >240 mg/dL High Risk Glucose [Mass/Vol] 100 mg/dL 74-106 [facility] Comment on above: Fasting Glucose resu lt from 100 to 125 mg/dL suggests IMPAIRED HOMEOSTASIS per A.D.A. criteria. Potassium [Moles/Vol] 3.3 mmol/L 3.5-5.1 [facility] Sodium [Moles/Vol] 140 mmol/L 136-145 [facility] Triglyceride [Mass/Vol] 117 mg/dL <199 [facility] Comment on above: The drugs N-Acetylcy steine and Metamizole may falsely depress this assay.Serum Triglycerides Reference Interval Normal <150 mg/dL Borderline high 150 - 199 mg/dL High 200 - 499 mg/dL Very High > or = 500 mg/dL WBC (Bld) [#/Vol] 7.5 10*3/uL 4.4-11.0 [facility] Blood erythrocytes count (nu mber/volume)Ordered By: Kianna Izquierdo on 06-27-2022 RBC (Bld) [#/Vol] 3.81 10*6/uL 4.2-5.4 [facility] Blood hemoglobin measurement (mass/volume)Ordered By: Kianna Izquierdo on 06-27-2022 Hemoglobin (Bld) [Mass/Vol] 10.1 g/dL 12.0-15.0 [facility] Blood platelet mean volumeOr dered By: Kianna Izquierdo on 06-27-2022 Platelet mean volume (Bld) [Entitic vol] 10.1 fL 6.2-12.0 [facility] Determination of erythrocyte mean corpuscular volume (MCV)Ordered By: Kianna Izquierdo on 06-27-2022 MCV (RBC) [Entitic vol] 89.2 fL 81-99 [facility] Hematocrit Auto (Bld) [Volum e fraction]Ordered By: Kianna Izquierdo on 06-27-2022 Hematocrit (Bld) [Volume fraction] 34.0 % 37-47 [facility] - Chemistry and C hemistry - challengeOrdered By: Kianna Izquierdo on 06-27-2022 CO2 [Moles/Vol] 31.0 mmol/L 21.0-32.0 [facility] Urea nitrogen/Creatinine [Mass ratio] 10.7 mg/mg 10-20 [facility] - Hematology and Cell countsOrdered By: Kianna Izquierdo on 06-27-2022 Erythrocyte distribution width (RBC) [Entitic vol] 47.3 fL 35.1-43.9 [facility] Erythrocyte distribution width (RBC) [Ratio] 14.7 % 11.6-14.6 [facility] MCH (RBC) [Entitic mass] 26.5 pg 27.0-32.0 [facility] MCHC Auto (RBC) [Mass/Vol]Or dered By: Kianna Izquierdo on 06-27-2022 MCHC (RBC) [Mass/Vol] 29.7 g/dL 32-36 [facility] No Panel InformationOrdered By: Kianna Izquierdo on 06-27-2022 Estimated GFR (MDRD) Amer 98 mL/min >60 [facility] Comment on above: GFR Calc Estimated GFR (MDRD) Non-Af Amer 81 mL/min >60 [facility] Comment on above: Non- GFR Calc Platelets bldOrdered By: Apple Izquierdo on 06-27-2022 Platelets (Bld) [#/Vol] 354 10*3/uL 150-450 [facility] Serum or plasma calcium carlie urement (mass/volume)Ordered By: Kianna Izquierdo on 06-27-2022 Calcium [Mass/Vol] 8.6 mg/dL 8.5-10.1 [facility] Serum or plasma cholesterol in HDL measurement (mass/volume)Ordered By: Kianna Izquierdo on 06-27-2022 Cholesterol in HDL [Mass/Vol] 34 mg/dL >40 [facility] Comment on above: The drugs N-Acetylcy steine and Metamizole may falsely depress this assay. Reference Range HDL <40 mg/dL Low HDL Cholesterol HDL >or= 60 mg/dL High HDL Cholesterol Serum or plasma cholesterol in VLDL measurement (mass/volume)Ordered By: Kianna Izquierdo on 06-27-2022 Cholesterol in VLDL [Mass/Vol] 23 mg/dL 5-40 [facility] Serum or plasma creatinine m easurement (mass/volume)Ordered By: Kianna Izquierdo on 06-27-2022 Creatinine [Mass/Vol] 0.75 mg/dL 0.55-1.02 [facility] Comment on above: The validity of the calculated GFR & GFRAA in patients over 70 years has not been determined. Clinical correlation is essential. Serum or plasma low density lipoprotein (LDL) cholesterol measurement (mass/volume)Ordered By: Kianna Izquierdo on 06-27-2022 Cholesterol in LDL [Mass/Vol] 83 mg/dL 0-130 [facility] Serum or plasma urea nitroge n measurement (mass/volume)Ordered By: Kianna Izquierdo on 06-27-2022 Urea nitrogen [Mass/Vol] 8 mg/dL 7-18 [facility] Thin prep Papanicolaou smear with manual screeningOrdered By: Kianna Izquierdo on 06-27-2022 Thin prep Papanicolaou smear with manual screening 8 5-15 [facility] 36on 06-21-2022 36 Kellee from the [place] at [place] called back to check on status of getting pt scheduled for visit if needed. Advised that XR were ordered to be done by 06/15/22 at facility and sent to use for review. She is checking to see if XR were done and sent over to provider for review and will call back on , 06/23/22 with an update. Normal [facility] Basophil percentageOrdered B y: Kianna Izquierdo on 06-13-2022 Chloride [Moles/Vol] 102 mmol/L 98-107 [facility] Glucose [Mass/Vol] 102 mg/dL 74-106 [facility] Comment on above: Fasting Glucose resu lt from 100 to 125 mg/dL suggests IMPAIRED HOMEOSTASIS per A.D.A. criteria. Potassium [Moles/Vol] 3.7 mmol/L 3.5-5.1 [facility] Sodium [Moles/Vol] 140 mmol/L 136-145 [facility] WBC (Bld) [#/Vol] 10.4 10*3/uL 4.4-11.0 [facility] Blood erythrocytes count (nu mber/volume)Ordered By: Kianna Izquierdo on 06-13-2022 RBC (Bld) [#/Vol] 3.35 10*6/uL 4.2-5.4 [facility] Blood hemoglobin measurement (mass/volume)Ordered By: Kianna Izquierdo on 06-13-2022 Hemoglobin (Bld) [Mass/Vol] 9.3 g/dL 12.0-15.0 [facility] Blood platelet mean volumeOr dered By: Kianna Izquierdo on 06-13-2022 Platelet mean volume (Bld) [Entitic vol] 9.5 fL 6.2-12.0 [facility] Determination of erythrocyte mean corpuscular volume (MCV)Ordered By: Kianna Izquierdo on 06-13-2022 MCV (RBC) [Entitic vol] 90.7 fL 81-99 [facility] Hematocrit Auto (Bld) [Volum e fraction]Ordered By: Kianna Izquierdo on 06-13-2022 Hematocrit (Bld) [Volume fraction] 30.4 % 37-47 [facility] - Chemistry and C hemistry - challengeOrdered By: Kianna Izquierdo on 06-13-2022 CO2 [Moles/Vol] 32.0 mmol/L 21.0-32.0 [facility] Urea nitrogen/Creatinine [Mass ratio] 9.7 mg/mg 10-20 [facility] - Hematology and Cell countsOrdered By: Kianna Izquierdo on 06-13-2022 Erythrocyte distribution width (RBC) [Entitic vol] 51.8 fL 35.1-43.9 [facility] Erythrocyte distribution width (RBC) [Ratio] 15.6 % 11.6-14.6 [facility] MCH (RBC) [Entitic mass] 27.8 pg 27.0-32.0 [facility] MCHC Auto (RBC) [Mass/Vol]Or dered By: Kianna Izquierdo on 06-13-2022 MCHC (RBC) [Mass/Vol] 30.6 g/dL 32-36 [facility] No Panel InformationOrdered By: Kianna Izquierdo on 06-13-2022 Estimated GFR (MDRD) Amer 121 mL/min >60 [facility] Comment on above: GFR Calc Estimated GFR (MDRD) Non-Af Amer 100 mL/min >60 [facility] Comment on above: Non- GFR Calc Platelets bldOrdered By: Apple Izquierdo on 06-13-2022 Platelets (Bld) [#/Vol] 624 10*3/uL 150-450 [facility] Serum or plasma calcium carlie urement (mass/volume)Ordered By: Kianna Izquierdo on 06-13-2022 Calcium [Mass/Vol] 8.7 mg/dL 8.5-10.1 [facility] Serum or plasma creatinine m easurement (mass/volume)Ordered By: Kianna Izquierdo on 06-13-2022 Creatinine [Mass/Vol] 0.62 mg/dL 0.55-1.02 [facility] Comment on above: The validity of the calculated GFR & GFRAA in patients over 70 years has not been determined. Clinical correlation is essential. Serum or plasma urea nitroge n measurement (mass/volume)Ordered By: Kianna Izquierdo on 06-13-2022 Urea nitrogen [Mass/Vol] 6 mg/dL 7-18 [facility] Thin prep Papanicolaou smear with manual screeningOrdered By: Kianna Izquierdo on 06-13-2022 Thin prep Papanicolaou smear with manual screening 6 5-15 [facility] Basophil percentageOrdered B y: Kianna Izquierdo on 06-09-2022 Chloride [Moles/Vol] 101 mmol/L 98-107 [facility] Glucose [Mass/Vol] 111 mg/dL 74-106 [facility] Comment on above: Fasting Glucose resu lt from 100 to 125 mg/dL suggests IMPAIRED HOMEOSTASIS per A.D.A. criteria. Potassium [Moles/Vol] 3.1 mmol/L 3.5-5.1 [facility] Sodium [Moles/Vol] 139 mmol/L 136-145 [facility] WBC (Bld) [#/Vol] 11.4 10*3/uL 4.4-11.0 [facility] Blood erythrocytes count (nu mber/volume)Ordered By: Kianna Izquierdo on 06-09-2022 RBC (Bld) [#/Vol] 3.30 10*6/uL 4.2-5.4 [facility] Blood hemoglobin measurement (mass/volume)Ordered By: Kianna Izquierdo on 06-09-2022 Hemoglobin (Bld) [Mass/Vol] 9.2 g/dL 12.0-15.0 [facility] Blood platelet mean volumeOr dered By: Kianna Izquierdo on 06-09-2022 Platelet mean volume (Bld) [Entitic vol] 9.9 fL 6.2-12.0 [facility] Determination of erythrocyte mean corpuscular volume (MCV)Ordered By: Kianna Izquierdo on 06-09-2022 MCV (RBC) [Entitic vol] 89.7 fL 81-99 [facility] Hematocrit Auto (Bld) [Volum e fraction]Ordered By: Kianna Izquierdo on 06-09-2022 Hematocrit (Bld) [Volume fraction] 29.6 % 37-47 [facility] - Chemistry and C hemistry - challengeOrdered By: Kianna Izquierdo on 06-09-2022 CO2 [Moles/Vol] 33.0 mmol/L 21.0-32.0 [facility] Urea nitrogen/Creatinine [Mass ratio] 12.0 mg/mg 10-20 [facility] - Hematology and Cell countsOrdered By: Kianna Izquierdo on 06-09-2022 Erythrocyte distribution width (RBC) [Entitic vol] 50.8 fL 35.1-43.9 [facility] Erythrocyte distribution width (RBC) [Ratio] 15.5 % 11.6-14.6 [facility] MCH (RBC) [Entitic mass] 27.9 pg 27.0-32.0 [facility] MCHC Auto (RBC) [Mass/Vol]Or dered By: Kianna Izquierdo on 06-09-2022 MCHC (RBC) [Mass/Vol] 31.1 g/dL 32-36 [facility] No Panel InformationOrdered By: Kianna Izquierdo on 06-09-2022 Estimated GFR (MDRD) Amer 130 mL/min >60 [facility] Comment on above: GFR Calc Estimated GFR (MDRD) Non-Af Amer 108 mL/min >60 [facility] Comment on above: Non- GFR Calc Platelets bldOrdered By: Pet er Ramon on 06-09-2022 Platelets (Bld) [#/Vol] 502 10*3/uL 150-450 [facility] Serum or plasma calcium carlie urement (mass/volume)Ordered By: Kianna Izquierdo on 06-09-2022 Calcium [Mass/Vol] 8.2 mg/dL 8.5-10.1 [facility] Serum or plasma creatinine m easurement (mass/volume)Ordered By: Kianna Izquierdo on 06-09-2022 Creatinine [Mass/Vol] 0.58 mg/dL 0.55-1.02 [facility] Comment on above: The validity of the calculated GFR & GFRAA in patients over 70 years has not been determined. Clinical correlation is essential. Serum or plasma urea nitroge n measurement (mass/volume)Ordered By: Kianna Izquierdo on 06-09-2022 Urea nitrogen [Mass/Vol] 7 mg/dL 7-18 [facility] Thin prep Papanicolaou smear with manual screeningOrdered By: Kianna Izquierdo on 06-09-2022 Thin prep Papanicolaou smear with manual screening 5 5-15 [facility] COVID-19on 06-05-2022 SARS-CoV-2 (COVID-19) RNA KAMLA+probe Ql (Unsp spec) Not detected Not Detected [facility] Comment on above: Not Detected. Expected result: Not Detected _ Method: Real-time, RT-PCR Negative results do not preclude SARS-CoV-2 infection and should not be used as the sole basis for treatment or other patient management decisions. This assay was developed by [employer] and distributed under an Emergency Use Authorization (EUA) granted by the FDA for the qualitative detection of SARS-CoV-2 nucleic acid. Provider and patient fact sheets can be found at https://www..gov/media/556333/download and https://www.BenchPrep.gov/media/222321/download. Test Performed by [facility] [employer] [facility], [address] [place] [id number] [place] [address] [id number] 06-05-2022 SARS-CoV-2 (COVID-19) RNA KAMLA+probe Ql (Unsp spec) SARS-CoV-2 --> Status: F Not Detected. Expected result: Not Detected _ Method: Real-time, RT-PCR Negative results do not preclude SARS-CoV-2 infection and should not be used as the sole basis for treatment or other patient management decisions. This assay was developed by [employer] and distributed under an Emergency Use Authorization (EUA) granted by the FDA for the qualitative detection of SARS-CoV-2 nucleic acid. Provider and patient fact sheets can be found at https://www..gov/EyeNetra pio/207726/download and https://www.BenchPrep.gov/ar pio/020798/download. Expected result: Not Detected _ Method: Real-time, RT-PCR Negative results do not preclude SARS-CoV-2 infection and should not be used as the sole basis for treatment or other patient management decisions. This assay was developed by [employer] and distributed under an Emergency Use Authorization (EUA) granted by the FDA for the qualitative detection of SARS-CoV-2 nucleic acid. Provider and patient fact sheets can be found at https://www..gov/EyeNetra pio/615132/download and https://www.BenchPrep.gov/ar pio/431317/download. Normal [facility] Comment on above: Performed By: #### B MP3, PT/AP, HEMOG, TROPN, LACT3, ETOH4 #### [facility] [employer] [address] [address] Basic Metabolic Panelon 05-15 Anion gap [Moles/Vol] 1 mmol/L Low 3-13 [facility] Comment on above: Performed By: #### B MP3, PT/AP, HEMOG, TROPN, LACT3, ETOH4 #### [facility] [address] [place], [place] Calcium [Mass/Vol] 8.2 mg/dL Low 8.4-10.4 [facility] Comment on above: Performed By: #### B MP3, PT/AP, HEMOG, TROPN, LACT3, ETOH4 #### [facility] [address] [place], [place] CO2 [Moles/Vol] 35 mmol/L High 22-30 [facility] Comment on above: Performed By: #### B MP3, PT/AP, HEMOG, TROPN, LACT3, ETOH4 #### [place] [address] [place], [place] Glucose [Mass/Vol] 145 mg/dL High 70-100 [facility] Comment on above: Performed By: #### B MP3, PT/AP, HEMOG, TROPN, LACT3, ETOH4 #### [place] [address] [address] [place] Urea nitrogen [Mass/Vol] 14 mg/dL Normal 9-20 [facility] Comment on above: Performed By: #### B MP3, PT/AP, HEMOG, TROPN, LACT3, ETOH4 #### [place] [place] [address] [address] [place], [place] Creatinine [Mass/Vol] 0.66 mg/dL Normal 0.52-1.25 [facility] Comment on above: Performed By: #### B MP3, PT/AP, HEMOG, TROPN, LACT3, ETOH4 #### [place] [address] [address] [place], [place] GFR/1.73 sq M.predicted among blacks MDRD (S/P/Bld) [Vol rate/Area] mL/min/{1.73_m2} Normal >60 [facility] Comment on above: Performed By: #### B MP3, PT/AP, HEMOG, TROPN, LACT3, ETOH4 #### [place] [address] [address] [place], [place] GFR/1.73 sq M.predicted among non-blacks MDRD (S/P/Bld) [Vol rate/Area] 87.7 mL/min/{1.73_m2} Normal >60 [facility] Comment on above: Result Comment: KDIG [...] MP3, PT/AP, HEMOG, TROPN, LACT3, ETOH4 #### [address] Chloride [Moles/Vol] 101 mmol/L Normal 98-107 [facility] Comment on above: Performed By: #### B MP3, PT/AP, HEMOG, TROPN, LACT3, ETOH4 #### [address] Potassium [Moles/Vol] 3.5 mmol/L Normal 3.5-5.1 [facility] Comment on above: Performed By: #### B MP3, PT/AP, HEMOG, TROPN, LACT3, ETOH4 #### [address] Sodium [Moles/Vol] 138 mmol/L Normal 135-145 [facility] Comment on above: Performed By: #### B MP3, PT/AP, HEMOG, TROPN, LACT3, ETOH4 #### [address] Anion gap [Moles/Vol] 1 mmol/L Low 3 - 13 mmol/L [facility] Calcium [Mass/Vol] 8.2 mg/dL Low 8.4 - 10. 4 mg/dL [facility] Chloride [Moles/Vol] 101 mmol/L 98 - 10 7 mmol/L [facility] CO2 [Moles/Vol] 35 mmol/L High 22 - 30 mmol/L [facility] Creatinine [Mass/Vol] 0.66 mg/dL 0.52 - 1.25 mg/dL [facility] eGFR mL/min 60 - P INF mL/min [facility] EGFR IF NonAfrican Filipino 87.7 mL/min 60 - PINF mL/min [facility] [...] 145 mg/dL High 70 - 100 mg/dL [facility] Interpretation and review of laboratory results Abnormal [facility] Potassium [Moles/Vol] 3.5 mmol/L 3.5 - 5.1 mmol/L [facility] Sodium [Moles/Vol] 138 mmol/L 135 - 145 mmol/L [facility] Urea nitrogen (BldV) [Mass/Vol] 14 mg/dL 9 - 20 mg/dL [facility] Test Performed by [employer] [address] LAB [facility] CBC with Auto Differentialon 06-03-2022 Absolute Baso [...] - 10.7 10*3/uL [facility] Test Performed by [employer] [facility], [address] [place] [address] [facility] Hemogram w/ Autodiffon 06-03 Abs Baso Cnt 0.1 10*3/uL Normal 0.0-0.2 [facility] Comment on above: Performed By: #### B MP3, HEMDF #### [facility] [address] [place] [address] Abs Neutrophile Cnt 7.8 10*3/uL High 1.8-7.0 [facility] Comment on above: Performed By: #### B MP3, HEMDF #### [facility] [address] [place] [address] Basophils/100 WBC (Bld) 0.8 % Normal 0.0-2.0 [facility] Comment on above: Performed By: #### B MP3, HEMDF #### [facility] [address] [place] [address] Eosinophils (Bld) [#/Vol] 0.5 10*3/uL Normal 0.0-0.5 [facility] Comment on above: Performed By: #### B MP3, HEMDF #### [facility] [address] [place] [address] Eosinophils/100 WBC (Bld) 4.5 % Normal 1.0-6.0 [facility] Comment on above: Performed By: #### B MP3, HEMDF #### [facility] [address] [place] [address] Erythrocyte distribution width (RBC) [Ratio] 15.8 % High 11.5-14.5 [facility] Comment on above: Performed By: #### B MP3, HEMDF #### [facility] [address] [place] [address] Granulocytes/100 WBC (Bld) 75.6 % Normal 40.0-80.0 [facility] Comment on above: Performed By: #### B MP3, HEMDF #### [facility] [address] [place] [address] Hematocrit (Bld) [Volume fraction] 25.4 % Low 35.0-47.0 [facility] Comment on above: Performed By: #### B MP3, HEMDF #### [facility] [address] [place] Hemoglobin (Bld) [Mass/Vol] 8.3 g/dL Low 11.7-16.0 [facility] Comment on above: Performed By: #### B MP3, HEMDF #### [place] [address] [address] [place], [place] Lymphocytes (Bld) [#/Vol] 1.3 10*3/uL Normal 1.0-4.3 [facility] Comment on above: Performed By: #### B MP3, HEMDF #### [place] [address] [address] [place], [place] Lymphocytes/100 WBC (Bld) 12.3 % Low 20.0-40.0 [facility] Comment on above: Performed By: #### B MP3, HEMDF #### [place] [address] [address] [place], [place] MCH (RBC) [Entitic mass] 28.1 pg Normal 26.0-34.0 [facility] Comment on above: Performed By: #### B MP3, HEMDF #### [place] [address] [address] [place] MCHC 32.6 % Normal 32.0-36.0 [facility] Comment on above: Performed By: #### B MP3, HEMDF #### [place] [address] [address] [place] MCV (RBC) [Entitic vol] 86.3 fL Normal 79.0-98.0 [facility] Comment on above: Performed By: #### B MP3, HEMDF #### [place] [address] [address] [place] Monocytes (Bld) [#/Vol] 0.7 10*3/uL Normal 0.0-0.8 [facility] Comment on above: Performed By: #### B MP3, HEMDF #### [place] [address] [address] [place] Monocytes/100 WBC (Bld) 6.8 % Normal 2.0-10.0 [facility] Comment on above: Performed By: #### B MP3, HEMDF #### [facility] [address] [place] Platelet mean volume (Bld) [Entitic vol] 8.1 fL Normal 7.4-12.4 [facility] Comment on above: Result Comment: MPV is a calculated measurement using platelet volume ratio. Performed By: #### B MP3, HEMDF #### [facility] [address] [place] Platelets (Bld) [#/Vol] 249 10*3/uL Normal 140-440 [facility] Comment on above: Performed By: #### B MP3, HEMDF #### [facility] [address] [place] [address] RBC (Bld) [#/Vol] 2.95 10*6/uL Low 3.80-5.20 [facility] Comment on above: Performed By: #### B MP3, HEMDF #### [facility] [address] [place] WBC (Bld) [#/Vol] 10.3 10*3/uL Normal 3.6-10.7 [facility] Comment on above: Performed By: #### B MP3, HEMDF #### [facility] [address] VL DUP LOWER EXTREMITY VENOU S BILATERALon 06-02-2022 [facility] ----- Lower Extremity Venous Duplex Report Patient [place], : 1950 Study 06/02/2022 Name: Andre (71yrs) Date: Age: 71 Account: [id number] Gender: F Loc: 6118 BP: Ordering Physician: Radha Moon Poultry Hatchery Manager: MARISSA JohnsT Interpreting Physician: Kwesi Gooden MD ----- Location: [facility] ----- Indications: Lower extremity pain and [...] supine position. Images were obtained using a [employer] vascular ultrasound machine. ----- Venous flow and [...] [facility] Kwesi Gooden MD - 06/02/2022 [facility] ----- Lower Extremity Venous Duplex Report Patient [place] : 1950 Study 06/02/2022 Name: Andre (71yrs) Date: Age: 71 Account: [id number] Gender: F Loc: 6118 BP: Ordering Physician: Radha Moon Poultry Hatchery Manager: MARISSA JohnsT Interpreting Physician: Kwesi Gooden MD ----- Location: [facility] ----- Indications: Lower extremity pain and [...] supine position. Images were obtained using a [employer] vascular ultrasound machine. ----- Venous flow and [...] + + + (more content not included)... [employer] Work Phone: Radiology Study observation (narrative) [employer] Phone: VL DUP LOWER EXTREMITY VENOU S BILATERALOrdered By: Kwesi Gooden on 06-02-2022 [employer] Phone: VL Venous Duplex US Lower Ex t Bilateralon 06-02-2022 VL Venous Duplex US Lower Ext Bilateral Patient Name: ANDRE BLANCA Ultrasound ACCESSION EXAM DATE/TIME PROCEDURE ORDERING PROVIDER [id number] 06/02/2022 10:59 EDT VL Venous Duplex US [id number] -RADHA MOON Lower Ext Bilateral CPT code 92331 Reason For Exam (VL Venous Duplex US Lower Ext Bilateral) edema [facility] ----- Lower Extremity Venous Duplex Report Patient [place] : 1950 Study 06/02/2022 Name: Andre (71yrs) Date: Age: 71 Account: [id number] Gender: F Loc: 6118 BP: Ordering Physician: Radha Moon Poultry Hatchery Manager: Liliana Mejia RVT Interpreting Physician: Kwesi Gooden MD ----- Location: [facility] ----- Indications: Lower extremity pain and [...] supine position. Images were obtained using a [employer] vascular ultrasound machine. ----- Ultrasound Report Venous [...] ------+ ------+ (more content not included)... Normal [facility] Basic Metabolic Panelon 10- Calcium [Mass/Vol] 8.7 mg/dL Normal 8.4-10.4 [facility] Comment on above: Performed By: #### H HERNÁN, BMP3M, LACT3 #### [facility] [employer] [facility] [address] [place], [place] Anion gap [Moles/Vol] 4 mmol/L Normal 3-13 [facility] Comment on above: Performed By: #### H HERNÁN, BMP3M, LACT3 #### [facility] [employer] [facility] [address] [place], [place] CO2 [Moles/Vol] 31 mmol/L High 22-30 [facility] Comment on above: Performed By: #### H EMOG, BMP3M, LACT3 #### [facility] [employer] [facility] [address] [place], [place] Creatinine [Mass/Vol] 0.78 mg/dL Normal 0.52-1.25 [facility] Comment on above: Performed By: #### H EMOPraveen, BMP3M, LACT3 #### [facility] [employer] [facility] [address] [place], [place] GFR/1.73 sq M.predicted among blacks MDRD (S/P/Bld) [Vol rate/Area] 87.5 mL/min/{1.73_m2} Normal >60 [facility] Comment on above: Performed By: #### H EMOPraveen, BMP3M, LACT3 #### [facility] [address] [place] [address] GFR/1.73 sq M.predicted among non-blacks MDRD (S/P/Bld) [Vol rate/Area] 75.5 mL/min/{1.73_m2} Normal >60 [facility] Comment on above: Result Comment: KDIG [...] By: #### H EMOG, BMP3M, LACT3 #### [facility] [address] [place] Glucose [Mass/Vol] 155 mg/dL High 70-100 [facility] Comment on above: Performed By: #### H EMOG, BMP3M, LACT3 #### [facility] [address] [place] [address] Urea nitrogen [Mass/Vol] 14 mg/dL Normal 9-20 [facility] Comment on above: Performed By: #### H EMOG, BMP3M, LACT3 #### [facility] [address] [place] [address] Chloride [Moles/Vol] 102 mmol/L Normal 98-107 [facility] Comment on above: Performed By: #### H EMOG, BMP3M, LACT3 #### [facility] [address] [place] [address] Potassium [Moles/Vol] 4.1 mmol/L Normal 3.5-5.1 [facility] Comment on above: Performed By: #### H EMOG, BMP3M, LACT3 #### [facility] [employer] [facility] [address] [place] [address] Sodium [Moles/Vol] 137 mmol/L Normal 135-145 [facility] Comment on above: Performed By: #### H EMOG, BMP3M, LACT3 #### [facility] [employer] [facility] [address] [place] [address] Basic Metabolic Panel w/ Ref nick to MGon 06-01-2022 Anion gap [Moles/Vol] 4 mmol/L 3 - 13 mmol/L [facility] Work Phone: Calcium [Mass/Vol] 8.7 mg/dL 8.4 - 10. 4 mg/dL [facility] Work Phone: Chloride [Moles/Vol] 102 mmol/L 98 - 10 7 mmol/L [facility] Work Phone: CO2 [Moles/Vol] 31 mmol/L High 22 - 30 mmol/L [facility] Work Phone: Creatinine [Mass/Vol] 0.78 mg/dL 0.52 - 1.25 mg/dL [facility] Work Phone: EGFR IF NonAfrican Filipino 75.5 mL/min 60 - PINF mL/min [facility] Work Phone: Comment on above: KDIGO guidelines [...] rate/Area] 87.5 mL/min/{1.73_m2} 60 - PINF mL/min [employer] Phone: Glucose [Mass/Vol] 155 mg/dL High 70 - 100 mg/dL [employer] Work Phone: Interpretation and review of laboratory results Abnormal [employer] Work Phone: [phone] Potassium [Moles/Vol] 4.1 mmol/L 3.5 - 5.1 mmol/L [employer] Work Phone: Sodium [Moles/Vol] 137 mmol/L 135 - 145 mmol/L [employer] Phone: Urea nitrogen (BldV) [Mass/Vol] 14 mg/dL 9 - 20 mg/dL [employer] Phone: Test Performed by [id number] [place], [place] [address] [place] [facility] Work Phone: CBCon 06-01-2022 Hematocrit (Bld) [Volume fraction] 30.0 % Low 35.0 - 47.0 % [facility] Phone: Hemoglobin (Bld) [Mass/Vol] 9.6 g/dL Low 11.7 - 16.0 g/dL [employer] Phone: Interpretation and review of laboratory results Abnormal [employer] Phone: MCH (RBC) [Entitic mass] 27.0 pg 26.0 - 34.0 pg [facility] Phone: [phone] MCHC (RBC) [Mass/Vol] 32.0 % 32.0 - 36.0 % [employer] Phone: MCV (RBC) [Entitic vol] 84.4 fL 79.0 - 98.0 fL [employer] Phone: Platelet distribution width (Bld) [Ratio] 15.4 % High 11.5 - 14.5 % [employer] Phone: [phone] Platelet mean volume (Bld) [Entitic vol] 8.1 fL 7.4 - 12.4 fL [employer] Work Phone: Comment on above: MPV is a calculated measurement using platelet volume ratio. Platelets (Bld) [#/Vol] 256 10*3/uL 140 - 440 10*3/uL [employer] Work Phone: RBC (Bld) [#/Vol] 3.55 10*6/uL Low 3.80 - 5.2 0 10*6/uL [employer] Work Phone: [phone] WBC (Bld) [#/Vol] 12.2 10*3/uL High 3.6 - 10.7 10*3/uL [employer] Work Phone: Test Performed by [employer], [address] [place] [address] [facility] [employer] Work Phone: CR Foot Complete 3+ Views Le fton 06-01-2022 CR Foot Complete 3+ Views Left Patient Name: ANDRE BLANCA Diagnostic Radiology ACCESSION EXAM DATE/TIME PROCEDURE ORDERING PROVIDER [id number] 05/31/2022 23:52 EDT CR Foot Complete 3+ [id number] -LUIS, Carleen Left KORTNIE CPT code 50871 Reason For Exam (CR Foot Complete 3+ [...] Transcribed Date and Time: 05/31/2022 11:51 Normal [facility] Hemogramon 06-01-2022 Erythrocyte distribution width (RBC) [Ratio] 15.4 % High 11.5-14.5 [facility] Comment on above: Performed By: #### H EMOG, BMP3M, LACT3 #### [address] [address] [place], [place] Hematocrit (Bld) [Volume fraction] 30.0 % Low 35.0-47.0 [facility] Comment on above: Performed By: #### H EMOG, BMP3M, LACT3 #### [address] Hemoglobin (Bld) [Mass/Vol] 9.6 g/dL Low 11.7-16.0 [facility] Comment on above: Performed By: #### H EMOG, BMP3M, LACT3 #### [address] MCH (RBC) [Entitic mass] 27.0 pg Normal 26.0-34.0 [facility] Comment on above: Performed By: #### H EMOG, BMP3M, LACT3 #### [address] MCHC 32.0 % Normal 32.0-36.0 [facility] Comment on above: Performed By: #### H EMOG, BMP3M, LACT3 #### [address] MCV (RBC) [Entitic vol] 84.4 fL Normal 79.0-98.0 [facility] Comment on above: Performed By: #### H EMOG, BMP3M, LACT3 #### [address] Platelet mean volume (Bld) [Entitic vol] 8.1 fL Normal 7.4-12.4 [facility] Comment on above: Result Comment: MPV is a calculated measurement using platelet volume ratio. Performed By: #### H EMOG, BMP3M, LACT3 #### [address] [address] [place] [address] Platelets (Bld) [#/Vol] 256 10*3/uL Normal 140-440 [facility] Comment on above: Performed By: #### H EMOG, BMP3M, LACT3 #### [address] [address] [place] [address] RBC (Bld) [#/Vol] 3.55 10*6/uL Low 3.80-5.20 [facility] Comment on above: Performed By: #### H EMOG, BMP3M, LACT3 #### [address] WBC (Bld) [#/Vol] 12.2 10*3/uL High 3.6-10.7 [facility] Comment on above: Performed By: #### H EMOG, BMP3M, LACT3 #### [address] [address] [place] [address] Lactic Acidon 06-01-2022 Lactate [Moles/Vol] 1.6 mmol/L Normal 0.7-2.0 [facility] Comment on above: Performed By: #### H EMOG, BMP3M, LACT3 #### [address] [address] Lactate [Moles/Vol] 1.6 mmol/L 0.7 - 2. 0 mmol/L [facility] Work Phone: Test Performed by [id number] [place] [address] LAB [facility] Work Phone: OPERATIVE REPORTon 2 Ordered by an unspecified provider. [facility] Op Noteon 06-01-2022 Op Note [facility] [address] [facility] [address] Dept: [phone] Loc: [phone] Operative Report Patient Name: Andre Blanca Date of : 1950 Date of Surgery: 06/01/22 Pre-operative diagnosis: Left olecranon fracture Post-operative diagnosis: Same Procedure(s): Open reduction internal fixation of left olecranon fracture (CPT 08073) Surgeon: Neto Jacobsen M.D. Compensation Vice President(s): Derek Love M.D. and Geronimo Rodriguez M.D. [...] as well as medical complications such as [place], stroke, PE, DVT, and even . Pt [...] Jacobsen MD at 06/01/22, 11:35 AM Normal [facility] Vit D 25-OH, Totalon 022 Vit D 25-OH, Total 18 ng/mL Low 30-100 [facility] Comment on above: Result Comment: Ther apy is based on measurement of Total 25-OHD with the following classification levels: Less than 20 ng/mL: Indicative of Vit D deficiency 20-30 ng/mL: Suggests Vit D insufficiency Optimal: Greater than or equal to 30 ng/mL Test performed by [employer] [facility] Competitive Immunoassay, measuring Total Vitamin D, not individual fractions. Performed By: #### B MP3, PT/AP, HEMOG, TROPN, LACT3, ETOH4 #### [address] [address] Vitamin D 25 Hydroxyon 06-01 Interpretation and review of laboratory results Abnormal [facility] Vit D, 25-Hydroxy 18 ng/mL Low 30 - 100 ng/mL [facility] Comment on above: Therapy is based on measurement of Total 25-OHD with the following classification levels: Less than 20 ng/mL: Indicative of Vit D deficiency 20-30 ng/mL: Suggests Vit D insufficiency Optimal: Greater than or equal to 30 ng/mL Test performed by [facility] Competitive Immunoassay, measuring Total Vitamin D, not individual fractions. Test Performed by [facility] [employer] [facility], [address] [place], [address] LAB [facility] Basic Metabolic Panelon 05-14 Anion gap [Moles/Vol] 7 mmol/L Normal 3-13 [facility] Comment on above: Performed By: #### B MP3, PT/AP, HEMOG, TROPN, LACT3, ETOH4 #### [address] [address] [place], [place] Calcium [Mass/Vol] 8.7 mg/dL Normal 8.4-10.4 [facility] Comment on above: Performed By: #### B MP3, PT/AP, HEMOG, TROPN, LACT3, ETOH4 #### [address] [address] [place], [place] CO2 [Moles/Vol] 29 mmol/L Normal 22-30 [facility] Comment on above: Performed By: #### B MP3, PT/AP, HEMOG, TROPN, LACT3, ETOH4 #### [address] [address] [place], [place] Creatinine [Mass/Vol] 0.63 mg/dL Normal 0.52-1.25 [facility] Comment on above: Performed By: #### B MP3, PT/AP, HEMOG, TROPN, LACT3, ETOH4 #### [address] [address] [place], [place] GFR/1.73 sq M.predicted among blacks MDRD (S/P/Bld) [Vol rate/Area] mL/min/{1.73_m2} Normal >60 [facility] Comment on above: Performed By: #### B MP3, PT/AP, HEMOG, TROPN, LACT3, ETOH4 #### [address] [address] [place], [place] GFR/1.73 sq M.predicted among non-blacks MDRD (S/P/Bld) [Vol rate/Area] 89.0 mL/min/{1.73_m2} Normal >60 [facility] Comment on above: Result Comment: KDIG [...] MP3, PT/AP, HEMOG, TROPN, LACT3, ETOH4 #### [address] Glucose [Mass/Vol] 112 mg/dL High 70-100 [facility] Comment on above: Performed By: #### B MP3, PT/AP, HEMOG, TROPN, LACT3, ETOH4 #### [address] Urea nitrogen [Mass/Vol] 11 mg/dL Normal 9-20 [facility] Comment on above: Performed By: #### B MP3, PT/AP, HEMOG, TROPN, LACT3, ETOH4 #### [address] Potassium [Moles/Vol] 3.8 mmol/L Normal 3.5-5.1 [facility] Comment on above: Performed By: #### B MP3, PT/AP, HEMOG, TROPN, LACT3, ETOH4 #### [address] Sodium [Moles/Vol] 139 mmol/L Normal 135-145 [facility] Comment on above: Performed By: #### B MP3, PT/AP, HEMOG, TROPN, LACT3, ETOH4 #### [address] Chloride [Moles/Vol] 102 mmol/L Normal 98-107 [facility] Comment on above: Performed By: #### B MP3, PT/AP, HEMOG, TROPN, LACT3, ETOH4 #### [address] [address] Basic Metabolic Panel w/ Ref nick to [...] P INF mL/min [facility] EGFR IF NonAfrican Filipino 89.0 mL/min 60 - PINF mL/min [facility] [...] 112 mg/dL High 70 - 100 mg/dL [facility] Interpretation and review of laboratory results Abnormal [facility] Potassium [Moles/Vol] 3.8 mmol/L 3.5 - 5.1 mmol/L [facility] Sodium [Moles/Vol] 139 mmol/L 135 - 145 mmol/L [facility] Urea nitrogen (BldV) [Mass/Vol] 11 mg/dL 9 - 20 mg/dL [facility] Test Performed by [facility] [employer] [facility], [address] [place] [id number] [facility] CBC with Auto Differentialon 05-31-2022 [...] 3.93 10*6/uL 3.80 - 5.2 0 10*6/uL [facility] WBC (Bld) [#/Vol] 11.7 10*3/uL High 3.6 - 10.7 10*3/uL [facility] Test Performed by [facility], [address] [place] [address] [facility] CR Pelvis 1 or 2 Viewson CR Pelvis 1 or 2 Views Patient Name: ANDRE BLANCA Diagnostic Radiology ACCESSION EXAM DATE/TIME PROCEDURE ORDERING PROVIDER [id number] 05/31/2022 20:59 EDT CR Pelvis 1 or 2 Views [id number] -GILLIAN SYKES CPT code 53607 Reason For Exam (CR Pelvis 1 or [...] Transcribed Date and Time: 05/31/2022 8:53 Normal [facility] Hemogram w/ Autodiffon 05-31 Abs Baso Cnt 0.0 10*3/uL Normal 0.0-0.2 [facility] Comment on above: Performed By: #### B MP3, PT/AP, HEMOG, TROPN, LACT3, ETOH4 #### [address] [address] Abs Neutrophile Cnt 9.3 10*3/uL High 1.8-7.0 [facility] Comment on above: Performed By: #### B MP3, PT/AP, HEMOG, TROPN, LACT3, ETOH4 #### [address] [address] [place], [place] Basophils/100 WBC (Bld) 0.4 % Normal 0.0-2.0 [facility] Comment on above: Performed By: #### B MP3, PT/AP, HEMOG, TROPN, LACT3, ETOH4 #### [address] [address] [place], [place] Eosinophils (Bld) [#/Vol] 0.3 10*3/uL Normal 0.0-0.5 [facility] Comment on above: Performed By: #### B MP3, PT/AP, HEMOG, TROPN, LACT3, ETOH4 #### [address] [address] [place], [place] Eosinophils/100 WBC (Bld) 2.3 % Normal 1.0-6.0 [facility] Comment on above: Performed By: #### B MP3, PT/AP, HEMOG, TROPN, LACT3, ETOH4 #### [address] [address] [place], [place] Erythrocyte distribution width (RBC) [Ratio] 15.4 % High 11.5-14.5 [facility] Comment on above: Performed By: #### B MP3, PT/AP, HEMOG, TROPN, LACT3, ETOH4 #### [address] Granulocytes/100 WBC (Bld) 79.6 % Normal 40.0-80.0 [facility] Comment on above: Performed By: #### B MP3, PT/AP, HEMOG, TROPN, LACT3, ETOH4 #### [address] Hematocrit (Bld) [Volume fraction] 33.6 % Low 35.0-47.0 [facility] Comment on above: Performed By: #### B MP3, PT/AP, HEMOG, TROPN, LACT3, ETOH4 #### [address] [address] [place], [place] Hemoglobin (Bld) [Mass/Vol] 10.9 g/dL Low 11.7-16.0 [facility] Comment on above: Performed By: #### B MP3, PT/AP, HEMOG, TROPN, LACT3, ETOH4 #### [address] [address] [place] Lymphocytes (Bld) [#/Vol] 1.3 10*3/uL Normal 1.0-4.3 [facility] Comment on above: Performed By: #### B MP3, PT/AP, HEMOG, TROPN, LACT3, ETOH4 #### [address] Lymphocytes/100 WBC (Bld) 11.2 % Low 20.0-40.0 [facility] Comment on above: Performed By: #### B MP3, PT/AP, HEMOG, TROPN, LACT3, ETOH4 #### [address] [address] [place], [place] MCH (RBC) [Entitic mass] 27.8 pg Normal 26.0-34.0 [facility] Comment on above: Performed By: #### B MP3, PT/AP, HEMOG, TROPN, LACT3, ETOH4 #### [address] [address] [place] MCHC 32.4 % Normal 32.0-36.0 [facility] Comment on above: Performed By: #### B MP3, PT/AP, HEMOG, TROPN, LACT3, ETOH4 #### [address] [address] [place], [place] MCV (RBC) [Entitic vol] 85.7 fL Normal 79.0-98.0 [facility] Comment on above: Performed By: #### B MP3, PT/AP, HEMOG, TROPN, LACT3, ETOH4 #### [address] [address] [place], [place] Monocytes (Bld) [#/Vol] 0.8 10*3/uL Normal 0.0-0.8 [facility] Comment on above: Performed By: #### B MP3, PT/AP, HEMOG, TROPN, LACT3, ETOH4 #### [facility] [address] [place], [place] Monocytes/100 WBC (Bld) 6.5 % Normal 2.0-10.0 [facility] Comment on above: Performed By: #### B MP3, PT/AP, HEMOG, TROPN, LACT3, ETOH4 #### [facility] [address] [place], [place] Platelet mean volume (Bld) [Entitic vol] 7.9 fL Normal 7.4-12.4 [facility] Comment on above: Result Comment: MPV is a calculated measurement using platelet volume ratio. Performed By: #### B MP3, PT/AP, HEMOG, TROPN, LACT3, ETOH4 #### [address] [address] [place], [place] Platelets (Bld) [#/Vol] 253 10*3/uL Normal 140-440 [facility] Comment on above: Performed By: #### B MP3, PT/AP, HEMOG, TROPN, LACT3, ETOH4 #### [address] [address] [place] RBC (Bld) [#/Vol] 3.93 10*6/uL Normal 3.80-5.20 [facility] Comment on above: Performed By: #### B MP3, PT/AP, HEMOG, TROPN, LACT3, ETOH4 #### [address] [address] [place] WBC (Bld) [#/Vol] 11.7 10*3/uL High 3.6-10.7 [facility] Comment on above: Performed By: #### B MP3, PT/AP, HEMOG, TROPN, LACT3, ETOH4 #### [address] [address] [place], [place] Op Noteon 05-31-2022 Op Note Operative [...] to normal structures that can lead to fci problems of pain or dysfunction, wound healing [...] patient's ASA was verified by the nurse plate worker helper and the anesthesia staff. Fire risk was [...] the gluteus medius was visualized and a [place] retractor was placed underneath this muscle belly. [...] placed within (more content not included)... Normal [facility] XR FOOT LEFT (MIN 3 VIEWS)on 05-31-2022 Patient Name: ANDRE BLANCA Diagnostic Radiology ACCESSION EXAM DATE/TIME PROCEDURE ORDERING PROVIDER [id number] 05/31/2022 23:52 EDT CR Foot Complete 3+ [id number] -BROSCHINSKY, Views Left KORTNIE CPT code 51161 Reason For Exam (CR Foot Complete 3+ [...] WENDELL Transcribed Date and Time: 05/31/2022 11:51 [facility] Luis Ochoa MD - 05/31/2022 [id number] Radiology ACCESSION EXAM DATE/TIME PROCEDURE ORDERING PROVIDER [id number] 05/31/2022 23:52 EDT CR Foot Complete 3+ [id number] -BROSCHINSKY, Views Left KORTNIE CPT code 68032 Reason For Exam (CR Foot Complete 3+ [...] Radiology ACCESSION EXAM DATE/TIME PROCEDURE ORDERING PROVIDER [id number] 05/31/2022 20:59 EDT CR Pelvis 1 or 2 Views [id number] -GILLIAN SYKES CPT code 11172 Reason For Exam (CR Pelvis 1 or [...] Transcribed Date and Time: 05/31/2022 8:53 [facility] Troy Rubin MD - 05/31/2022 Patient Name: ANDRE BLANCA Diagnostic Radiology ACCESSION EXAM DATE/TIME PROCEDURE ORDERING PROVIDER [id number] 05/31/2022 20:59 EDT CR Pelvis 1 or 2 Views [id number] -GILLIAN SYKES CPT code 50749 Reason For Exam (CR Pelvis 1 or [...] R Transcribed Date and Time: 05/31/2022 8:53 [facility] Work Phone: Radiology Study observation (narrative) [facility] Work Phone: XR PELVIS (1-2 VW)Ordered By : Troy Rubin on 05-31-2022 [facility] Work Phone: Basic Metabolic Panelon 05-14 Anion gap [Moles/Vol] 5 mmol/L Normal 3-13 [facility] Comment on above: Performed By: #### B MP3, PT/AP, HEMOG, TROPN, LACT3, ETOH4 #### [facility] [address] [place] [address] Calcium [Mass/Vol] 8.8 mg/dL Normal 8.4-10.4 [facility] Comment on above: Performed By: #### B MP3, PT/AP, HEMOG, TROPN, LACT3, ETOH4 #### [facility] [address] [place] [address] CO2 [Moles/Vol] 33 mmol/L High 22-30 [facility] Comment on above: Performed By: #### B MP3, PT/AP, HEMOG, TROPN, LACT3, ETOH4 #### [address] [address] [place], [place] Glucose [Mass/Vol] 149 mg/dL High 70-100 [facility] Comment on above: Performed By: #### B MP3, PT/AP, HEMOG, TROPN, LACT3, ETOH4 #### [address] [address] [place], [place] Urea nitrogen [Mass/Vol] 9 mg/dL Normal 9-20 [facility] Comment on above: Performed By: #### B MP3, PT/AP, HEMOG, TROPN, LACT3, ETOH4 #### [address] [address] [place], [place] Creatinine [Mass/Vol] 0.76 mg/dL Normal 0.52-1.25 [facility] Comment on above: Performed By: #### B MP3, PT/AP, HEMOG, TROPN, LACT3, ETOH4 #### [address] [address] [place], [place] GFR/1.73 sq M.predicted among blacks MDRD (S/P/Bld) [Vol rate/Area] mL/min/{1.73_m2} Normal >60 [facility] Comment on above: Performed By: #### B MP3, PT/AP, HEMOG, TROPN, LACT3, ETOH4 #### [address] [address] [place], [place] GFR/1.73 sq M.predicted among non-blacks MDRD (S/P/Bld) [Vol rate/Area] 77.9 mL/min/{1.73_m2} Normal >60 [facility] Comment on above: Result Comment: KDIG [...] MP3, PT/AP, HEMOG, TROPN, LACT3, ETOH4 #### [address] [address] [place], [place] Potassium [Moles/Vol] 3.6 mmol/L Normal 3.5-5.1 [facility] Comment on above: Performed By: #### B MP3, PT/AP, HEMOG, TROPN, LACT3, ETOH4 #### [address] [address] [place], [place] Sodium [Moles/Vol] 141 mmol/L Normal 135-145 [facility] Comment on above: Performed By: #### B MP3, PT/AP, HEMOG, TROPN, LACT3, ETOH4 #### [address] Chloride [Moles/Vol] 103 mmol/L Normal 98-107 [facility] Comment on above: Performed By: #### B MP3, PT/AP, HEMOG, TROPN, LACT3, ETOH4 #### [address] [address] [place], [place] Anion gap [Moles/Vol] 5 mmol/L 3 - 13 mmol/L [facility] Calcium [Mass/Vol] 8.8 mg/dL 8.4 - 10. 4 mg/dL [facility] Chloride [Moles/Vol] 103 mmol/L 98 - 10 7 mmol/L [facility] CO2 [Moles/Vol] 33 mmol/L High 22 - 30 mmol/L [facility] Creatinine [Mass/Vol] 0.76 mg/dL 0.52 - 1.25 mg/dL [facility] eGFR mL/min 60 - P INF mL/min [facility] EGFR IF NonAfrican Filipino 77.9 mL/min 60 - PINF mL/min [facility] [...] - 10.7 10*3/uL [facility] Test Performed by [id number] [place] [address] LAB [facility] CR Chest Portableon 05-30-20 CR Chest Portable Patient Name: ANDRE BLANCA Diagnostic Radiology ACCESSION EXAM DATE/TIME PROCEDURE ORDERING PROVIDER [id number] 05/30/2022 10:36 EDT CR Chest Portable [id number] -LALIT PICHARDO CPT code 51367 Reason For Exam (CR Chest Portable) fall, [...] Transcribed Date and Time: 05/30/2022 10:29 Normal [facility] CR Elbow 3+ Views Lefton CR Elbow 3+ Views Left Patient Name: ANDRE BLANCA Diagnostic Radiology ACCESSION EXAM DATE/TIME PROCEDURE ORDERING PROVIDER [id number] 05/30/2022 10:17 EDT CR Elbow 3+ Views Left [id number] -MARGARET CUEVAS CPT code 22931 Reason For Exam (CR Elbow 3+ Views [...] Transcribed Date and Time: 05/30/2022 10:22 Normal [facility] CR Femur 2+ Views Lefton CR Femur 2+ Views Left Patient Name: ANDRE BLANCA Diagnostic Radiology ACCESSION EXAM DATE/TIME PROCEDURE ORDERING PROVIDER [id number] 05/30/2022 10:17 EDT CR Femur 2+ Views Left n [id number] -MARGARET CUEVAS CPT code 81685 Reason For Exam (CR Femur 2+ Views [...] Transcribed Date and Time: 05/30/2022 10:24 Normal [facility] CR Pelvis 1 or 2 Viewson CR Pelvis 1 or 2 Views Patient Name: ANDRE BLANCA Diagnostic Radiology ACCESSION EXAM DATE/TIME PROCEDURE ORDERING PROVIDER [id number] 05/30/2022 10:36 EDT CR Pelvis 1 or 2 Views [id number] LALIT AVENDAÑO CPT code 88675 Reason For Exam (CR Pelvis 1 or [...] THOMAS Transcribed Date and Time: 05/30/2022 10:24 [facility] CR Shoulder 2+ Views Lefton 05-30-2022 CR Shoulder 2+ Views Left Patient Name: ANDRE BLANCA Diagnostic Radiology ACCESSION EXAM DATE/TIME PROCEDURE ORDERING PROVIDER [id number] 05/30/2022 10:17 EDT CR Shoulder 2+ Views [id number] -CUEVASMARGARET COOK Left CPT code 23288 Reason For Exam (CR Shoulder 2+ Views [...] Transcribed Date and Time: 05/30/2022 10:28 Normal [facility] CR Tibia/Fibula 2 Views Abundio santa 05-30-2022 CR Tibia/Fibula 2 Views Bilateral Patient Name: ANDRE BLANCA Diagnostic Radiology ACCESSION EXAM DATE/TIME PROCEDURE ORDERING PROVIDER [id number] 05/30/2022 19:27 EDT CR Tibia/Fibula 2 Views MD FARAZ, ERLINDA Bilateral CPT code 88501 Reason For Exam (CR Tibia/Fibula 2 Views [...] Transcribed Date and Time: 05/30/2022 7:12 Normal [facility] CT CERVICAL SPINE WO CONTRAS Ton 05-30-2022 Patient Name: ANDRE BLANCA Computed Tomography ACCESSION EXAM DATE/TIME PROCEDURE ORDERING PROVIDER [id number] 05/30/2022 09:[address] Spine Cervical w/o 246046 -CAYLA MADRIGAL Contrast CPT code 90276 Reason For Exam (CT Spine Cervical w/o [...] ALFRED Transcribed Date and Time: 05/30/2022 10:58 [facility] Aidan Mcguire DO - 05/30/2022 Patient Name: ANDRE BLANCA Computed Tomography ACCESSION EXAM DATE/TIME PROCEDURE ORDERING PROVIDER [id number] 05/30/2022 09:[address] Spine Cervical w/o 291636 -CAYLA MADRIGAL Contrast CPT code 80564 Reason For Exam (CT Spine Cervical w/o [...] ALFRED Transcribed Date and Time: 05/30/2022 10:58 [facility] Work Phone: [facility] Work Phone: CT HEAD WO CONTRASTon 2021 [facility]: [id number] Computed Tomography ACCESSION EXAM DATE/TIME PROCEDURE ORDERING PROVIDER [id number] 05/30/2022 09:[address] Head or Brain w/o 573786 -CRANKSHAW, CAYLA Contrast CPT code 80174 Reason For Exam (CT Head or Brain [...] ALFRED Transcribed Date and Time: 05/30/2022 10:49 [facility] Aidan Mcguire DO - 05/30/2022 Patient [facility]: [id number] Computed Tomography ACCESSION EXAM DATE/TIME PROCEDURE ORDERING PROVIDER [id number] 05/30/2022 09:[address] Head or Brain w/o 914400 -CRANKSHAW, CAYLA Contrast CPT code 45930 Reason For Exam (CT Head or Brain [...] Brain w/o Contrast Patient [facility]: [id number] Computed Tomography ACCESSION EXAM DATE/TIME PROCEDURE ORDERING PROVIDER [id number] 05/30/2022 16:[address] Head or Brain w/o 928841 -RADHA MOON Contrast CPT code 82304 Reason For Exam (CT Head or Brain [...] Transcribed Date and Time: 05/30/2022 5:06 Normal [facility] CT Head or Brain w/o Contrast Patient [facility]: [id number] Computed Tomography ACCESSION EXAM DATE/TIME PROCEDURE ORDERING PROVIDER [id number] 05/30/2022 09:[address] Head or Brain w/o 317937 -CAYLA MADRIGAL Contrast CPT code 79093 Reason For Exam (CT Head or Brain [...] Transcribed Date and Time: 05/30/2022 10:49 Normal [facility] CT Spine Cervical w/o Katie weeks 05-30-2022 CT Spine Cervical w/o Contrast Patient [facility]: [id number] Computed Tomography ACCESSION EXAM DATE/TIME PROCEDURE ORDERING PROVIDER [id number] 05/30/2022 09:[address] Spine Cervical w/o 228909 -CAYLA MADRIGAL Contrast CPT code 23690 Reason For Exam (CT Spine Cervical w/o [...] Transcribed Date and Time: 05/30/2022 10:58 Normal [facility] CT head without contraston 1 Patient Name: ANDRE BLANCA Computed Tomography ACCESSION EXAM DATE/TIME PROCEDURE ORDERING PROVIDER [id number] 05/30/2022 16:[address] Head or Brain w/o 804208 -RADHA MOON Contrast CPT code 07903 Reason For Exam (CT Head or Brain [...] WENDELL Transcribed Date and Time: 05/30/2022 5:06 [facility] Luis Schaffer MD - 05/30/2022 Patient Name: ANDRE BLANCA Computed Tomography ACCESSION EXAM DATE/TIME PROCEDURE ORDERING PROVIDER [id number] 05/30/2022 16:[address] Head or Brain w/o 229405 -RADHA MOON Contrast CPT code 50376 Reason For Exam (CT Head or Brain [...] WENDELL Transcribed Date and Time: 05/30/2022 5:06 [employer] Work Phone: CT head without contrastOrde red By: Luis Ochoa on 05-30-2022 [employer] Work Phone: ED Provider Noteon ED Provider [...] she got up and shortly after ambulating everything went black she landed on her left side and [...] EXAM DATE/ (more content not included)... Normal [facility] ED Provider Note Emergency Department Encounter [...] ED course/MDM: I, Dr. Decker, am the pill coater of record. 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1950 Requested By: KWESI DECKER Order Number: [id number] Reading MD: Kwesi Decker Measurements Intervals [place] Rate: 76 P: 70 CA: 202 QRS: 90 QRSD: 133 T: 34 QT: 405 QTc: 455 Interpretive Statements Sinus rhythm Right bundle branch block No previous EKG for comparison Electronically Signed On 05-30-2022 14:34:14 EDT by Kwesi Decker [facility] Result, Unknown Provider - 05/30/2022 [facility] Test Date: 2022-05-30 Pat Name: ANDRE BLANCA Department: 1AER Room: [facility] Gender: F Drill Shar[employer]er 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: 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 : 1950 Requested By: KWESI DECKER Order Number: [id number] Reading MD: Kwesi Decker Measurements Intervals [place] Rate: 76 P: 70 CA: 202 QRS: 90 QRSD: 133 T: 34 QT: 405 QTc: 455 Interpretive Statements Sinus rhythm Right bundle branch block No previous EKG for comparison Electronically Signed On 05-30-2022 14:34:14 EDT by Kwesi Decker [facility] Work Phone: EKG 12 Lead - Chest PainOrde red By: Unknown Result on 05-30-2022 [facility] Ethanolon 05-30-2022 Ethanol Lvl <0.010 0.000 - 0.010 g/dL [facility] Comment on above: NOTE: This result is for medical treatment only. Analysis performed using non-forensic procedures. Ethanol Serum/Plasmaon 05-30 Ethanol-Serum/Plasma < 0.010 Normal 0.000-0.010 [facility] Comment on above: Result Comment: NOTE : This result is for medical treatment only. Analysis performed using non-forensic procedures. Performed By: #### B MP3, PT/AP, HEMOG, TROPN, LACT3, ETOH4 #### [facility] [employer] [address] [place] [address] Hemogramon 05-30-2022 Erythrocyte distribution width (RBC) [Ratio] 15.8 % High 11.5-14.5 [facility] Comment on above: Performed By: #### B MP3, PT/AP, HEMOG, TROPN, LACT3, ETOH4 #### [facility] [employer] [address] [place], [place] Hematocrit (Bld) [Volume fraction] 36.3 % Normal 35.0-47.0 [facility] Comment on above: Performed By: #### B MP3, PT/AP, HEMOG, TROPN, LACT3, ETOH4 #### [facility] [address] [place], [place] Hemoglobin (Bld) [Mass/Vol] 11.6 g/dL Low 11.7-16.0 [facility] Comment on above: Performed By: #### B MP3, PT/AP, HEMOG, TROPN, LACT3, ETOH4 #### [address] MCH (RBC) [Entitic mass] 27.1 pg Normal 26.0-34.0 [facility] Comment on above: Performed By: #### B MP3, PT/AP, HEMOG, TROPN, LACT3, ETOH4 #### [address] [address] [place], [place] MCHC 31.8 % Low 32.0-36.0 [facility] Comment on above: Performed By: #### B MP3, PT/AP, HEMOG, TROPN, LACT3, ETOH4 #### [address] MCV (RBC) [Entitic vol] 85.2 fL Normal 79.0-98.0 [facility] Comment on above: Performed By: #### B MP3, PT/AP, HEMOG, TROPN, LACT3, ETOH4 #### [address] Platelet mean volume (Bld) [Entitic vol] 7.4 fL Normal 7.4-12.4 [facility] Comment on above: Result Comment: MPV is a calculated measurement using platelet volume ratio. Performed By: #### B MP3, PT/AP, HEMOG, TROPN, LACT3, ETOH4 #### [address] Platelets (Bld) [#/Vol] 246 10*3/uL Normal 140-440 [facility] Comment on above: Performed By: #### B MP3, PT/AP, HEMOG, TROPN, LACT3, ETOH4 #### [address] [address] [place], [place] RBC (Bld) [#/Vol] 4.27 10*6/uL Normal 3.80-5.20 [facility] Comment on above: Performed By: #### B MP3, PT/AP, HEMOG, TROPN, LACT3, ETOH4 #### [address] [address] [address] [place] WBC (Bld) [#/Vol] 8.2 10*3/uL Normal 3.6-10.7 [facility] Comment on above: Performed By: #### B MP3, PT/AP, HEMOG, TROPN, LACT3, ETOH4 #### [address] [address] [place], [place] Lactic Acidon 05-30-2022 Lactate [Moles/Vol] 1.3 mmol/L Normal 0.7-2.0 [facility] Comment on above: Performed By: #### B MP3, PT/AP, HEMOG, TROPN, LACT3, ETOH4 #### [address] [address] [place], [place] Lactate [Moles/Vol] 1.3 mmol/L 0.7 - 2. 0 mmol/L [facility] Test Performed by [id number] [place] [address] LAB [facility] No Panel Informationon 05-30 Radiology Study observation (narrative) [facility] Work Phone: Test Performed by [id number] [place] [address] Radiology Study observation (narrative) [facility] Work Phone: Protime AND APTTon aPTT Coag (Bld) [Time] 27.1 s Normal 20.0-30.5 [facility] Comment on above: Result Comment: NOTE : The therapeutic time for Heparin anticoagulation, based on Xa activity inhibition, is an APTT of 46-80 seconds. Performed By: #### B MP3, PT/AP, HEMOG, TROPN, LACT3, ETOH4 #### [address] INR 1.0 Normal 0.9-1.1 [facility] Comment on above: Result Comment: Que [...] MP3, PT/AP, HEMOG, TROPN, LACT3, ETOH4 #### [address] PT Coag (PPP) [Time] 10.7 s Normal 9.0-12.0 [facility] Comment on above: Result Comment: . Performed By: #### B MP3, PT/AP, HEMOG, TROPN, LACT3, ETOH4 #### [address] Protime/INR & PTTon 10-17-20 22 aPTT Coag (Bld) [Time] 27.1 s 20.0 - 30.5 s [facility] Comment on above: NOTE: The therapeuti c time for Heparin anticoagulation, based on Xa activity inhibition, is an APTT of 46-80 seconds. INR Coag (Bld) [Relative time] 1.0 {INR} [facility] Comment on above: Recommended Anticoag [...] Comment on above: . Test Performed by [id number] [place] [address] LAB [facility] TS GELon 05-30-2022 TS GEL ABO Group: O Rh, Gel: POS Antibody Screen Gel: NEG Normal [facility] Comment on above: Performed By: #### B MP3, PT/AP, HEMOG, TROPN, LACT3, ETOH4 #### [address] [phone] TYPE AND SCREENon 05-30-2022 ABO Grouping [facility] Rh Type Positive [facility] Test Performed by [id number] [place] [address] LAB [facility] Troponinon 05-30-2022 Troponin I.cardiac [Mass/Vol] ng/mL 0.000 - 0.034 ng/mL [facility] Comment on above: . Test Performed by [facility], [address] [place] [id number] [place] [address] LAB [facility] Troponin Ion 05-30-2022 Troponin I.cardiac [Mass/Vol] ng/mL Normal 0.000-0.034 [facility] Comment on above: Result Comment: . Performed By: #### B MP3, PT/AP, HEMOG, TROPN, LACT3, ETOH4 #### [address] [phone] XR CHEST PORTABLEon 05-30-20 Patient Name: ANDRE BLANCA Diagnostic Radiology ACCESSION EXAM DATE/TIME PROCEDURE ORDERING PROVIDER [id number] 05/30/2022 10:36 EDT CR Chest Portable [id number] [address] CPT code 28082 Reason For Exam (CR Chest Portable) fall, [...] THOMAS Transcribed Date and Time: 05/30/2022 10:29 [facility] Michel Iglesias M D - 05/30/2022 Patient Name: ANDRE BLANCA Diagnostic Radiology ACCESSION EXAM DATE/TIME PROCEDURE ORDERING PROVIDER [id number] 05/30/2022 10:36 EDT CR Chest Portable [id number] -LALIT PICHARDO CPT code 47772 Reason For Exam (CR Chest Portable) fall, [...] THOMAS Transcribed Date and Time: 05/30/2022 10:29 [facility] Work Phone: [facility] Work Phone: XR ELBOW LEFT (MIN 3 VIEWS)o n 05-30-2022 Patient Name: ANDRE BLANCA Diagnostic Radiology ACCESSION EXAM DATE/TIME PROCEDURE ORDERING PROVIDER [id number] 05/30/2022 10:17 EDT CR Elbow 3+ Views Left Marshall SneedCUEVAS MARGARET CPT code 57677 Reason For Exam (CR Elbow 3+ Views [...] THOMAS Transcribed Date and Time: 05/30/2022 10:22 [facility] Michel Iglesias, M D - 05/30/2022 [id number] ACCESSION EXAM DATE/TIME PROCEDURE ORDERING PROVIDER [id number] 05/30/2022 10:17 EDT CR Elbow 3+ Views Left [id number] MARGARET ASHRAF CPT code 06063 Reason For Exam (CR Elbow 3+ Views [...] Radiology ACCESSION EXAM DATE/TIME PROCEDURE ORDERING PROVIDER [id number] 05/30/2022 10:17 EDT CR Femur 2+ Views Left n [id number] CAMARA CPT code 81081 Reason For Exam (CR Femur 2+ Views [...] THOMAS Transcribed Date and Time: 05/30/2022 10:24 [facility] Michel Iglesias M D - 05/30/2022 Patient Name: ANDRE BLANCA Diagnostic Radiology ACCESSION EXAM DATE/TIME PROCEDURE ORDERING PROVIDER [id number] 05/30/2022 10:17 EDT CR Femur 2+ Views Left n [id number] GOMEZ CPT code 19321 Reason For Exam (CR Femur 2+ Views [...] PELVIS (1-2 VW)on [facility]: [id number]iology ACCESSION EXAM DATE/TIME PROCEDURE ORDERING PROVIDER [id number] 05/30/2022 10:36 EDT CR Pelvis 1 or 2 Views [id number] -LALIT PICHARDO CPT code 46854 Reason For Exam (CR Pelvis 1 or [...] THOMAS Transcribed Date and Time: 05/30/2022 10:24 [facility] Michel gIlesias M D - 05/30/2022 Patient Name: ANDRE BLANCA Diagnostic Radiology ACCESSION EXAM DATE/TIME PROCEDURE ORDERING PROVIDER [id number] 05/30/2022 10:36 EDT CR Pelvis 1 or 2 Views [id number] -LALIT PICHARDO CPT code 53923 Reason For Exam (CR Pelvis 1 or [...] 2 VWon 05-14 Patient Name: ANDRE BLANCA Diagnostic Radiology ACCESSION EXAM DATE/TIME PROCEDURE ORDERING PROVIDER [id number] 05/30/2022 10:17 EDT CR Shoulder 2+ Views [id number] -MARGARET CUEVAS Left CPT code 57339 Reason For Exam (CR Shoulder 2+ Views [...] THOMAS Transcribed Date and Time: 05/30/2022 10:28 [facility] Michel Iglesias M D - 05/30/2022 Patient Name: ANDRE BLANCA Diagnostic Radiology ACCESSION EXAM DATE/TIME PROCEDURE ORDERING PROVIDER [id number] 05/30/2022 10:17 EDT CR Shoulder 2+ Views [id number] -MARGARET CUEVAS Left CPT code 49719 Reason For Exam (CR Shoulder 2+ Views [...] THOMAS Transcribed Date and Time: 05/30/2022 10:28 [facility] Work Phone: XR Shoulder Left 2 VWOrdered By: Michel Iglesias on 05-30-2022 [facility] Work Phone: XR Tibia Fibula Bilateralon 05-30-2022 Patient Name: ANDRE BLANCA Diagnostic Radiology ACCESSION EXAM DATE/TIME PROCEDURE ORDERING PROVIDER [id number] 05/30/2022 19:27 EDT CR Tibia/Fibula 2 Views MD RUTH BLAKE Bilateral CPT code 08304 Reason For Exam (CR Tibia/Fibula 2 Views [...] NICHOLAS Transcribed Date and Time: 05/30/2022 7:12 [facility] Estevan Hicks MD - 05/30/2022 Patient Name: ANDRE BLANCA Diagnostic Radiology ACCESSION EXAM DATE/TIME PROCEDURE ORDERING PROVIDER [id number] 05/30/2022 19:27 EDT CR Tibia/Fibula 2 Views MD RUTH BLAKE Bilateral CPT code 03002 Reason For Exam (CR Tibia/Fibula 2 Views Bilateral) Bilateral leg pain Report EXAMINATION: Bilateral tibia and fibula CLINICAL INDICATION: Bilateral leg pain TECHNIQUE: AP and lateral radiographs of the bilateral tibia/fibula COMPARISON: None FINDINGS: No fracture or dislocation. Degenerative changes are present in the bilateral knees, greater on the right. No soft tissue swelling. Report Dictated on Workstation: [email or web address] --- Final --- Dictated: 05/30/2022 7:12 pm [...] Radiology ACCESSION EXAM DATE/TIME PROCEDURE ORDERING PROVIDER [id number] 05/18/2022 10:40 EDT CR Knee 1 or 2 Views [id number] -ABIOLA CONNOLLY Right CPT code 51909 Reason For Exam (CR Knee 1 or [...] Transcribed Date and Time: 05/18/2022 4:32 Normal [facility] CR Knee Standing Bilateralon 05-18-2022 CR Knee Standing Bilateral Patient Name: ANDRE BLANCA Diagnostic Radiology ACCESSION EXAM DATE/TIME PROCEDURE ORDERING PROVIDER [id number] 05/18/2022 10:45 EDT CR Knee Standing AP [id number] -ABIOLA CONNOLLY Bilateral CPT code 31029 Reason For Exam (CR Knee Standing AP [...] Transcribed Date and Time: 05/18/2022 4:32 Normal [facility] No Panel Informationon 05-18 Radiology Study observation (narrative) [facility] Work Phone: XR KNEE BILATERAL STANDINGon 05-18-2022 Patient Name: ANDRE BLANCA Diagnostic Radiology ACCESSION EXAM DATE/TIME PROCEDURE ORDERING PROVIDER [id number] 05/18/2022 10:45 EDT CR Knee Standing AP [id number] -ABIOLA CONNOLLY Bilateral CPT code 22920 Reason For Exam (CR Knee Standing AP [...] R Transcribed Date and Time: 05/18/2022 4:32 [facility] Troy Rubin MD - 05/18/2022 Patient Name: ANDRE BLANCA Diagnostic Radiology ACCESSION EXAM DATE/TIME PROCEDURE ORDERING PROVIDER [id number] 05/18/2022 10:45 EDT CR Knee Standing AP [id number] -ABIOLA CONNOLLY Bilateral CPT code 41380 Reason For Exam (CR Knee Standing AP [...] R Transcribed Date and Time: 05/18/2022 4:32 [facility] Work Phone: [facility] Work Phone: XR KNEE RIGHT (1-2 VIEWS)on 05-18-2022 Patient Name: ANDRE BLANCA Diagnostic Radiology ACCESSION EXAM DATE/TIME PROCEDURE ORDERING PROVIDER [id number] 05/18/2022 10:40 EDT CR Knee 1 or 2 Views [id number] -ABIOLA CONNOLLY Right CPT code 10053 Reason For Exam (CR Knee 1 or [...] R Transcribed Date and Time: 05/18/2022 4:32 [facility] Troy Rubin MD - 05/18/2022 Patient Name: ANDRE BLANCA Diagnostic Radiology ACCESSION EXAM DATE/TIME PROCEDURE ORDERING PROVIDER [id number] 05/18/2022 10:40 EDT CR Knee 1 or 2 Views [id number] -ABIOLA CONNOLLY Right CPT code 21563 Reason For Exam (CR Knee 1 or [...] R Transcribed Date and Time: 05/18/2022 4:32 [facility] Work Phone: XR KNEE RIGHT (1-2 VIEWS)Ord ered By: Troy Rubin on 05-18-2022 [facility] Work Phone: CR Shoulder 2+ Views Lefton 05-05-2022 CR Shoulder 2+ Views Left [facility]: [id number] Radiology ACCESSION EXAM DATE/TIME PROCEDURE ORDERING PROVIDER [id number] 05/05/2022 10:01 EDT CR Shoulder 2+ Views [id number] -BACKER, Left JUDAISM CPT code 94979 Reason For Exam (CR Shoulder 2+ Views [...] Transcribed Date and Time: 05/06/2022 4:30 Normal [facility] Basophil percentageon 2021 Chloride [Moles/Vol] 105 mmol/L 98-107 [facility] Work Phone: Glucose [Mass/Vol] 110 mg/dL 74-106 [facility] Work Phone: Comment on above: Fasting Glucose resu lt from 100 to 125 mg/dL suggests IMPAIRED HOMEOSTASIS per A.D.A. criteria. Potassium [Moles/Vol] 3.1 mmol/L 3.5-5.1 [facility] Work Phone: Sodium [Moles/Vol] 143 mmol/L 136-145 [facility] Work Phone: WBC (Bld) [#/Vol] 5.5 10*3/uL 4.4-11.0 [facility] Work Phone: Blood erythrocytes count (nu mber/volume)on 04-25-2022 RBC (Bld) [#/Vol] 3.80 10*6/uL 4.2-5.4 [facility] Work Phone: Blood hemoglobin measurement (mass/volume)on 04-25-2022 Hemoglobin (Bld) [Mass/Vol] 10.8 g/dL 12.0-15.0 [facility] Work Phone: Blood platelet mean volumeon 04-25-2022 Platelet mean volume (Bld) [Entitic vol] 10.2 fL 6.2-12.0 [facility] Work Phone: Determination of erythrocyte mean corpuscular volume (MCV)on 04-25-2022 MCV (RBC) [Entitic vol] 88.9 fL 81-99 [facility] Work Phone: Hematocrit Auto (Bld) [Volum e fraction]on 04-25-2022 Hematocrit (Bld) [Volume fraction] 33.8 % 37-47 [facility] Work Phone: Laboratory - Chemistry and C hemistry - challengeon 04-25-2022 CO2 [Moles/Vol] 32.0 mmol/L 21.0-32.0 [facility] Work Phone: Urea nitrogen/Creatinine [Mass ratio] 10.6 mg/mg 10-20 [facility] Work Phone: Laboratory - Hematology and Cell countson 04-25-2022 Erythrocyte distribution width (RBC) [Entitic vol] 45.5 fL 35.1-43.9 [facility] Work Phone: Erythrocyte distribution width (RBC) [Ratio] 14.0 % 11.6-14.6 [facility] Work Phone: MCH (RBC) [Entitic mass] 28.4 pg 27.0-32.0 [facility] Work Phone: MCHC Auto (RBC) [Mass/Vol]on 04-25-2022 MCHC (RBC) [Mass/Vol] 32.0 g/dL 32-36 [facility] Work Phone: No Panel Informationon 04-25 Estimated GFR (MDRD) Amer 113 mL/min >60 [facility] Work Phone: Comment on above: GFR Calc Estimated GFR (MDRD) Non-Af Amer 94 mL/min >60 [facility] Work Phone: [phone] Comment on above: Non- GFR Calc Platelets bldon 04-25-2022 Platelets (Bld) [#/Vol] 260 10*3/uL 150-450 [facility] Work Phone: Serum or plasma calcium carlie urement (mass/volume)on 04-25-2022 Calcium [Mass/Vol] 8.7 mg/dL 8.5-10.1 [facility] Work Phone: Serum or plasma creatinine m easurement (mass/volume)on 04-25-2022 Creatinine [Mass/Vol] 0.66 mg/dL 0.55-1.02 [facility] Work Phone: Comment on above: The validity of the calculated GFR & GFRAA in patients over 70 years has not been determined. Clinical correlation is essential. Serum or plasma urea nitroge n measurement (mass/volume)on 04-25-2022 Urea nitrogen [Mass/Vol] 7 mg/dL 7-18 [facility] Work Phone: Thin prep Papanicolaou smear with manual screeningon 04-25-2022 Thin prep Papanicolaou smear with manual screening 6 5-15 [facility] Work Phone: No Panel Informationon 03-25 Thyroid Stimulating Hormone (TSH) 0.01 uIU/mL 0.358-3.74 [facility] Work Phone: Whole blood hemoglobin A1c/t otal hemoglobin ratio (mass fraction)on 03-25-2022 HbA1c (Bld) [Mass fraction] 5.4 % 3.8-5.6 [facility] Work Phone: Comment on above: Normal < 5.7 % Predi abetic 5.7 - 6.4 % Diabetic >or= 6.5 % Please note range changes. Absolute lymphocyte counton 03-14-2022 Lymphocytes Auto (Unsp spec) [#/Vol] 1.95 10*3/uL 0.83-4.51 [facility] Work Phone: Basophil percentageon 2021 Basophils/100 WBC (Bld) 1.1 % 0-1 [facility] Work Phone: Eosinophils/100 WBC (Bld) 4.7 % 0-5 [facility] Work Phone: Neutrophils (Bld) [#/Vol] 3.4 10*3/uL 2.0-7.7 [facility] Work Phone: Neutrophils/100 WBC (Bld) 55.3 % 47-70 [facility] Work Phone: WBC (Bld) [#/Vol] 6.2 10*3/uL 4.4-11.0 [facility] Work Phone: Blood erythrocytes count (nu mber/volume)on 03-14-2022 RBC (Bld) [#/Vol] 4.05 10*6/uL 4.2-5.4 [facility] Work Phone: [phone] Blood hemoglobin measurement (mass/volume)on 03-14-2022 Hemoglobin (Bld) [Mass/Vol] 11.7 g/dL 12.0-15.0 [facility] Work Phone: Blood lymphocytes/100 leukoc yteson 03-14-2022 Lymphocytes/100 WBC (Bld) 31.6 % 19-41 [facility] Work Phone: Blood monocytes/100 leukocyt eson 03-14-2022 Monocytes/100 WBC (Bld) 7.0 % 0-10 [facility] Work Phone: Blood platelet mean volumeon 03-14-2022 Platelet mean volume (Bld) [Entitic vol] 10.1 fL 6.2-12.0 [facility] Work Phone: Determination of erythrocyte mean corpuscular volume (MCV)on 03-14-2022 MCV (RBC) [Entitic vol] 90.4 fL 81-99 [facility] Work Phone: Hematocrit Auto (Bld) [Volum e fraction]on 03-14-2022 Hematocrit (Bld) [Volume fraction] 36.6 % 37-47 [facility] Work Phone: Laboratory - Hematology and Cell countson 03-14-2022 Erythrocyte distribution width (RBC) [Entitic vol] 44.3 fL 35.1-43.9 [facility] Work Phone: [phone] Erythrocyte distribution width (RBC) [Ratio] 13.3 % 11.6-14.6 [facility] Work Phone: Immature granulocytes/100 WBC (Bld) 0.300 % 0.0-0.9 [facility] Work Phone: Comment on above: IG% - Immature Granu locytes (promyelocytes, myelocytes and metamyelocytes) > 1% indicates that a LEFT SHIFT is Present. MCH (RBC) [Entitic mass] 28.9 pg 27.0-32.0 [facility] Work Phone: Nucleated RBC/100 WBC (Bld) [Ratio] 0 % 0-5 [facility] Work Phone: MCHC Auto (RBC) [Mass/Vol]on 03-14-2022 MCHC (RBC) [Mass/Vol] 32.0 g/dL 32-36 [facility] Work Phone: Platelets bldon 03-14-2022 Platelets (Bld) [#/Vol] 292 10*3/uL 150-450 [facility] Work Phone: CR Shoulder 2+ Views Lefton 03-03-2022 CR Shoulder 2+ Views Left [facility]: [id number]iology ACCESSION EXAM DATE/TIME PROCEDURE ORDERING PROVIDER [id number] 03/03/2022 09:30 EDT CR Shoulder 2+ Views ANALISA LEONG, NURYS Rubio Left CPT code 80511 Reason For Exam (CR Shoulder 2+ Views [...] Transcribed Date and Time: 03/04/2022 12:30 Normal [facility] CBCOrdered By: Marjorie Carrillo on 01-19-2022 Hematocrit (Bld) [Volume fraction] 32.9 % Low 35.0 - 47.0 % [facility] Hemoglobin (Bld) [Mass/Vol] 10.6 g/dL Low 11.7 - 16.0 g/dL [facility] Interpretation and review of laboratory [...] 11.3 10*3/uL High 3.6 - 10.7 10*3/uL [facility] CBCon 01-19-2022 Test Performed by [facility], [address] LAB Comp Metabolic Panelon 01-19 Calcium [Mass/Vol] 8.4 mg/dL Normal 8.4-10.4 [facility] Comment on above: Performed By: #### Ana Rosa JIM CMP3 #### [facility] [address] [place] [address] ALP [Catalytic activity/Vol] 114 U/L Normal 38-126 [facility] Comment on above: Performed By: #### Ana Rosa JIM CMP3 #### [facility] [address] [place] [address] ALT [Catalytic activity/Vol] 9 U/L Normal 0-34 [facility] Comment on above: Result Comment: The ALT test is performed by an updated assay method. Please note that the reference intervals have been changed and are now sex specific. Performed By: #### Ana Rosa JIM CMP3 #### [facility] [address] [place] [address] Anion gap [Moles/Vol] 6 mmol/L Normal 3-13 [facility] Comment on above: Performed By: #### Ana Rosa JIM CMP3 #### [facility] [address] [place] [address] AST [Catalytic activity/Vol] 27 U/L Normal 15-46 [facility] Comment on above: Performed By: #### Ana Rosa JIM CMP3 #### [facility] [address] [place] [address] Bilirubin [Mass/Vol] 0.5 mg/dL Normal 0.2-1.3 [facility] Comment on above: Performed By: #### Ana Rosa JIM CMP3 #### [facility] [address] [place] [address] CO2 [Moles/Vol] 27 mmol/L Normal 22-30 [facility] Comment on above: Performed By: #### Ana Rosa JIM CMP3 #### [facility] [address] [place] [address] Creatinine [Mass/Vol] 0.76 mg/dL Normal 0.52-1.25 [facility] Comment on above: Performed By: #### Ana Rosa JIM CMP3 #### [facility] [address] [place] [address] GFR/1.73 sq M.predicted among blacks MDRD (S/P/Bld) [Vol rate/Area] mL/min/{1.73_m2} Normal >60 [facility] Comment on above: Performed By: #### Ana Rosa JIM CMP3 #### [facility] [employer] [facility] [address] [place] [address] GFR/1.73 sq M.predicted among non-blacks MDRD (S/P/Bld) [Vol rate/Area] 78.1 mL/min/{1.73_m2} Normal >60 [facility] Comment on above: Result Comment: KDIG [...] renal tubular creatinine secretion. Performed By: #### Ana Rosa JIM CMP3 #### [employer] [address] [place] [address] Glucose [Mass/Vol] 116 mg/dL High 70-100 [facility] Comment on above: Performed By: #### H JEWEL JIM3 #### [employer] [facility] [address] [place] [address] Protein [Mass/Vol] 6.5 g/dL Normal 6.3-8.2 [facility] Comment on above: Performed By: #### H JEWEL JIM3 #### [employer] [facility] [address] [place] [address] Urea nitrogen [Mass/Vol] 11 mg/dL Normal 9-20 [facility] Comment on above: Performed By: #### Ana Rosa JIM CMP3 #### [facility] [address] [place] [address] Potassium [Moles/Vol] 3.7 mmol/L Normal 3.5-5.1 [facility] Comment on above: Performed By: #### H HERNÁN CMP3 #### [facility] [address] [place] [address] Albumin [Mass/Vol] 3.4 g/dL Low 3.5-5.0 [facility] Comment on above: Performed By: #### H HERNÁN CMP3 #### [facility] [address] [place] [address] Chloride [Moles/Vol] 102 mmol/L Normal 98-107 [facility] Comment on above: Performed By: #### H HERNÁN CMP3 #### [facility] [address] [place] [address] Sodium [Moles/Vol] 136 mmol/L Normal 135-145 [facility] Comment on above: Performed By: #### H HERNÁN CMP3 #### [facility] [address] [place] [address] Complete Urinalysison 2021 Appearance (U) Clear Normal Clear [facility] Comment on above: Result Comment: . Performed By: #### C UA2 #### [facility] [address] [place] [address] Bacteria Few Abnormal Negative [facility] Comment on above: Result Comment: . Performed By: #### C UA2 #### [facility] [address] [place] [address] Bilirubin,Urine Negative Normal Negative [facility] Comment on above: Result Comment: . Performed By: #### C UA2 #### [facility] [address] [place] [address] Cast, Hyaline 6 - 10 Abnormal Negative [facility] Comment on above: Result Comment: . Performed By: #### C UA2 #### [facility] [address] [place] [address] Color (U) Yellow Normal Lt. Yellow [facility] Comment on above: Result Comment: . Performed By: #### C UA2 #### [facility] [address] [place] [place] [address] Glucose Ql (U) Normal Normal Normal (<70) [facility] Comment on above: Result Comment: . Performed By: #### C UA2 #### [facility] [address] [place] [address] Ketone,Urine Negative Normal Negative [facility] Comment on above: Result Comment: . Performed By: #### C UA2 #### [facility] [address] [place] [address] Leukocytes,Urine Negative Normal Negative [facility] Comment on above: Result Comment: . Performed By: #### C UA2 #### [facility] [address] [place] [address] Mucous Threads Few Normal Negative [facility] Comment on above: Result Comment: . Performed By: #### C UA2 #### [facility] [address] [place] [address] Nitrites,Urine Negative Normal Negative [facility] Comment on above: Result Comment: . Performed By: #### C UA2 #### [facility] [address] [place] [address] Occult Blood,Urine Negative Normal Negative [facility] Comment on above: Result Comment: . Performed By: #### C UA2 #### [facility] [address] [place] [address] pH,Urine 5.5 Normal 5.0-8.0 [facility] Comment on above: Result Comment: . Performed By: #### C UA2 #### [facility] [address] [place] [address] Protein (U) [Mass/Vol] 10 mg/dL Abnormal Negative [facility] Comment on above: Result Comment: . Performed By: #### C UA2 #### [facility] [address] [place] [address] RBC, Urine 0 - 2 Normal 0-2 [facility] Comment on above: Result Comment: . Performed By: #### C UA2 #### [facility] [address] [place] [address] Specific [place],Urine 1.023 Normal 1.005 - 1.030 [facility] Comment on above: Result Comment: . Performed By: #### C UA2 #### [facility] [address] [place] [address] Squamous Epithelial 3 - 5 Normal 3-5 [facility] Comment on above: Result Comment: . Performed By: #### C UA2 #### [facility] [address] [place] [address] Urobilinogen,Urine Normal Normal Normal (0-1) [facility] Comment on above: Result Comment: . Performed By: #### C UA2 #### [facility] [address] [place] [address] WBC, Urine 3 - 5 Normal 0-5 [facility] Comment on above: Result Comment: . Performed By: #### C UA2 #### [facility] [address] [place] [address] Comprehensive Metabolic Pane jay 01-19-2022 Albumin [Mass/Vol] 3.4 g/dL Low 3.5 - 5.0 g/dL [employer] Work Phone: [phone] ALP (Bld) [Catalytic activity/Vol] 114 U/L 38 - 126 U/L [facility] Work Phone: [phone] ALT [Catalytic activity/Vol] 9 U/L 0 - 34 U/L [facility] Work Phone: [phone] Comment on above: The ALT test is perf ormed by an updated assay method. Please note that the reference intervals have been changed and are now sex specific. Anion gap [Moles/Vol] 6 mmol/L 3 - 13 mmol/L [facility] Work Phone: [phone] AST [Catalytic activity/Vol] 27 U/L 15 - 46 U/L [employer] Work Phone: [phone] Bilirubin [Mass/Vol] 0.5 mg/dL 0.2 - 1 .3 mg/dL [facility] Work Phone: [phone] Calcium [Mass/Vol] 8.4 mg/dL 8.4 - 10. 4 mg/dL [facility] Work Phone: [phone] Chloride [Moles/Vol] 102 mmol/L 98 - 10 7 mmol/L [facility] Work Phone: [phone] CO2 [Moles/Vol] 27 mmol/L 22 - 30 mmol/L [facility] Work Phone: Creatinine [Mass/Vol] 0.76 mg/dL 0.52 - 1.25 mg/dL [facility] Work Phone: [phone] EGFR IF NonAfrican Filipino 78.1 mL/min >60 [facility] Work Phone: [phone] Comment on above: KDIGO guidelines pro [...] fraction] 6.5 g/dL 6.3 - 8.2 g/dL [facility] Work Phone: GFR/1.73 sq M.predicted among blacks MDRD (S/P/Bld) [Vol rate/Area] mL/min/{1.73_m2} >60 mL/min [facility] Work Phone: [phone] Glucose [Mass/Vol] 116 mg/dL High 70 - 100 mg/dL [facility] Work Phone: [phone] Interpretation and review of laboratory results Abnormal [facility] Work Phone: [phone] Potassium [Moles/Vol] 3.7 mmol/L 3.5 - 5.1 mmol/L [facility] Work Phone: [phone] Sodium [Moles/Vol] 136 mmol/L 135 - 145 mmol/L [facility] Work Phone: [phone] Urea nitrogen (BldV) [Mass/Vol] 11 mg/dL 9 - 20 mg/dL [facility] Work Phone: Test Performed by [facility], [address] [place] [address] [facility] Work Phone: Hemogramon 01-19-2022 Erythrocyte distribution width (RBC) [Ratio] 15.5 % High 11.5-14.5 [facility] Comment on above: Performed By: #### Ana Rosa JIM CMP3 #### [facility] [address] [place] [address] Hematocrit (Bld) [Volume fraction] 32.9 % Low 35.0-47.0 [facility] Comment on above: Performed By: #### Ana Rosa JIM CMP3 #### [facility] [address] [place] [address] Hemoglobin (Bld) [Mass/Vol] 10.6 g/dL Low 11.7-16.0 [facility] Comment on above: Performed By: #### Ana Rosa JIM CMP3 #### [facility] [address] [place] [address] MCH (RBC) [Entitic mass] 28.2 pg Normal 26.0-34.0 [facility] Comment on above: Performed By: #### Ana Rosa JIM CMP3 #### [facility] [address] [place] [address] MCHC 32.2 % Normal 32.0-36.0 [facility] Comment on above: Performed By: #### Ana Rosa JIM CMP3 #### [facility] [address] [place] [address] MCV (RBC) [Entitic vol] 87.5 fL Normal 79.0-98.0 [facility] Comment on above: Performed By: #### Ana Rosa JIM CMP3 #### [facility] [address] [place] [address] Platelet mean volume (Bld) [Entitic vol] 8.1 fL Normal 7.4-12.4 [facility] Comment on above: Result Comment: MPV is a calculated measurement using platelet volume ratio. Performed By: #### Ana Rosa JIM CMP3 #### [facility] [address] [place] [address] Platelets (Bld) [#/Vol] 244 10*3/uL Normal 140-440 [facility] Comment on above: Performed By: #### H JEWEL JIM3 #### [facility] [address] [place] [address] RBC (Bld) [#/Vol] 3.75 10*6/uL Low 3.80-5.20 [facility] Comment on above: Performed By: #### H JEWEL JIM3 #### [facility] [address] [place] [address] WBC (Bld) [#/Vol] 11.3 10*3/uL High 3.6-10.7 [facility] Comment on above: Performed By: #### H JEWEL JIM3 #### [facility] [address] [place] [address] Urinalysison 01-19-2022 Appearance (U) Clear Clear NA [...] /[HPF] [facility] Comment on above: . Specific [place], Urine 1.023 S [facility] Comment on above: . Squam Epithel, UA 3-5 3 - 5 /[HPF] [facility] Comment on above: . Urobilinogen, Urine Normal Normal ( 0-1) mg/dL [facility] Comment on above: . WBC, UA 3-5 0 - 5 /[HPF] [facility] Comment on above: . Test Performed by [facility], [address] [place] [address] LAB [facility] CR Shoulder 2+ Views Lefton 01-18-2022 CR Shoulder 2+ Views Left Patient Name: ANDRE BLANCA Diagnostic Radiology ACCESSION EXAM DATE/TIME PROCEDURE ORDERING PROVIDER [id number] 01/18/2022 12:12 EDT CR Shoulder 2+ Views MILTON FAMILIA Left CPT code 12520 Reason For Exam (CR Shoulder 2+ Views Left) PACU post-op rTSA Report Left shoulder three views HISTORY: Postoperative Left shoulder prosthesis. The alignment is anatomic. No evidence of a fracture. Report Dictated on Final Dictating Physician: MD YUN MALAY Signed Date and Time: 01/18/2022 1:58 pm Signed by: MD YUN MALAY Transcribed Date and Time: 01/18/2022 1:59 Normal [facility] OPERATIVE REPORTon Ordered by an unspecified provider. [facility] Op Noteon 01-18-[address] [facility] [address] [place] [address] Dept: [phone] Loc: [phone] Operative Report Patient Name: Andre Blanca Date of : 1950 Date of Surgery: 01/18/22 Location: [facility] Preoperative Diagnosis: LEFT shoulder rotator cuff tear [...] patient's ASA was verified by the nurse plate worker helper and the anesthesia staff. Fire risk was [...] procedure w (more content not included)... Normal [facility] XR Shoulder Left 2 VWon 06-0 Patient Name: ANDRE BLANCA Diagnostic Radiology ACCESSION EXAM DATE/TIME PROCEDURE ORDERING PROVIDER [id number] 01/18/2022 12:12 EDT CR Shoulder 2+ Views MILTON, FAMILIA Left CPT code 79026 Reason For Exam (CR Shoulder 2+ Views Left) PACU post-op rTSA Report Left shoulder three views HISTORY: Postoperative Left shoulder prosthesis. The alignment is anatomic. No evidence of a fracture. Report Dictated on --- Final --- Dictating Physician: MD YUN MALAY Signed Date and Time: 01/18/2022 1:58 pm Signed by: MD YUN MALAY Transcribed Date and Time: 01/18/2022 1:59 [facility] Darrel Yun MD - 01/18/2022 Patient Name: ANDRE BLANCA Diagnostic Radiology ACCESSION EXAM DATE/TIME PROCEDURE ORDERING PROVIDER [id number] 01/18/2022 12:12 EDT CR Shoulder 2+ Views MILTON, FAMILIA Left CPT code 88342 Reason For Exam (CR Shoulder 2+ Views Left) PACU post-op rTSA Report Left shoulder three views HISTORY: Postoperative Left shoulder prosthesis. The alignment is anatomic. No evidence of a fracture. Report Dictated on --- Final --- Dictating Physician: MD YUN MALAY Signed Date and Time: 01/18/2022 1:58 pm Signed by: MD YUN MALAY Transcribed Date and Time: 01/18/2022 1:59 [facility] Work Phone: Radiology Study observation (narrative) [facility] Work Phone: XR Shoulder Left 2 VWOrdered By: Darrel Yun on 01-18-2022 [facility] Work Phone: Basophil percentageon 2021 Chloride [Moles/Vol] 106 mmol/L 98-107 [facility] Work Phone: Glucose [Mass/Vol] 62 mg/dL 74-106 [facility] Work Phone: Potassium [Moles/Vol] 3.6 mmol/L 3.5-5.1 [facility] Work Phone: Sodium [Moles/Vol] 140 mmol/L 136-145 [facility] Work Phone: WBC (Bld) [#/Vol] 6.5 10*3/uL 4.4-11.0 [facility] Work Phone: Blood erythrocytes count (nu mber/volume)on 01-17-2022 RBC (Bld) [#/Vol] 3.92 10*6/uL 4.2-5.4 [facility] Work Phone: Blood hemoglobin measurement (mass/volume)on 01-17-2022 Hemoglobin (Bld) [Mass/Vol] 11.2 g/dL 12.0-15.0 [facility] Work Phone: Blood platelet mean volumeon 01-17-2022 Platelet mean volume (Bld) [Entitic vol] 9.9 fL 6.2-12.0 [facility] Work Phone: Determination of erythrocyte mean corpuscular volume (MCV)on 01-17-2022 MCV (RBC) [Entitic vol] 89.5 fL 81-99 [facility] Work Phone: Hematocrit Auto (Bld) [Volum e fraction]on 01-17-2022 Hematocrit (Bld) [Volume fraction] 35.1 % 37-47 [facility] Work Phone: INR in Blood by Coagulation assayon 01-17-2022 INR Coag (Bld) [Relative time] 1.0 {INR} [facility] Work Phone: Laboratory - Chemistry and C hemistry - challengeon 01-17-2022 CO2 [Moles/Vol] 29.0 mmol/L 21.0-32.0 [facility] Work Phone: Urea nitrogen/Creatinine [Mass ratio] 11.8 mg/mg 10-20 [facility] Work Phone: Laboratory - Coagulationon 0 01-17-2022 PT Coag (PPP) [Time] 12.7 s 11.7-14.9 [facility] Work Phone: Laboratory - Hematology and Cell countson 01-17-2022 Erythrocyte distribution width (RBC) [Entitic vol] 45.7 fL 35.1-43.9 [facility] Work Phone: Erythrocyte distribution width (RBC) [Ratio] 14.1 % 11.6-14.6 [facility] Work Phone: MCH (RBC) [Entitic mass] 28.6 pg 27.0-32.0 [facility] Work Phone: MCHC Auto (RBC) [Mass/Vol]on 01-17-2022 MCHC (RBC) [Mass/Vol] 31.9 g/dL 32-36 [facility] Work Phone: No Panel Informationon 01-17 Estimated GFR (MDRD) Amer 110 mL/min >60 [facility] Work Phone: Comment on above: GFR Calc Estimated GFR (MDRD) Non-Af Amer 91 mL/min >60 [facility] Work Phone: Comment on above: Non- GFR Calc Platelets bldon 01-17-2022 Platelets (Bld) [#/Vol] 263 10*3/uL 150-450 [facility] Work Phone: Serum or plasma calcium carlie urement (mass/volume)on 01-17-2022 Calcium [Mass/Vol] 8.5 mg/dL 8.5-10.1 [facility] Work Phone: Serum or plasma creatinine m easurement (mass/volume)on 01-17-2022 Creatinine [Mass/Vol] 0.68 mg/dL 0.55-1.02 [facility] Work Phone: Comment on above: The validity of the calculated GFR & GFRAA in patients over 70 years has not been determined. Clinical correlation is essential. Serum or plasma urea nitroge n measurement (mass/volume)on 01-17-2022 Urea nitrogen [Mass/Vol] 8 mg/dL 7-18 [facility] Work Phone: Thin prep Papanicolaou smear with manual screeningon 01-17-2022 Thin prep Papanicolaou smear with manual screening 5 5-15 [facility] Work Phone: Vit D 25-OH, Totalon 022 Vit D 25-OH, Total 27 ng/mL Low 30-100 [facility] Comment on above: Result Comment: Ther apy is based on measurement of Total 25-OHD with the following classification levels: Less than 20 ng/mL: Indicative of Vit D deficiency 20-30 ng/mL: Suggests Vit D insufficiency Optimal: Greater than or equal to 30 ng/mL Test performed by [employer] Immunoassay, measuring Total Vitamin D, not individual fractions. Performed By: #### B 12 #### [facility] [address] [place], [place] #### [id number] #### [facility] [address] [place] [address] Vitamin B12on 01-06-2022 Cobalamin (Vitamin B12) [Mass/Vol] 355 pg/mL Normal 239-931 [facility] Comment on above: Performed By: #### B 12 #### [facility] [address] [place], [place] #### [id number] #### [facility] [address] [place] [address] Add on test from HISon 01-05 Add on test from HIS Rejected Normal [facility] Comment on above: Result Comment: No s pecimen available for addon. need ylt specimen for vit d. b12 has already been ordered. 01/05/2022 12:31 Performed By: #### A DDON #### [facility] [address] [place] Add on test from HIS Rejected Normal [facility] Comment on above: Result Comment: need s a yellow top for vitamin D Performed By: #### A DDON #### [facility] [address] [place], [place] CT Head or Brain w/o Contras ton 01-05-2022 CT Head or Brain w/o Contrast Patient Name: ANDRE BLANCA Computed Tomography ACCESSION EXAM DATE/TIME PROCEDURE ORDERING PROVIDER [id number] 01/04/2022 23:[address] Head or Brain w/o BRANDON YEAGER PETER J Contrast CPT code 32244 Reason For Exam (CT Head or Brain [...] Transcribed Date and Time: 01/05/2022 5:34 Normal [facility] Comp Panel with Mg Reflexon 01-05-2022 ALP [Catalytic activity/Vol] 143 U/L High 38-126 [facility] Comment on above: Performed By: #### C MP3M, TSH5, HEMDF, B12 #### [place] [address] [place], [place] ALT [Catalytic activity/Vol] 12 U/L Normal 0-34 [facility] Comment on above: Result Comment: The ALT test is performed by an updated assay method. Please note that the reference intervals have been changed and are now sex specific. Performed By: #### C MP3M, TSH5, HEMDF, B12 #### [facility] [address] AST [Catalytic activity/Vol] 28 U/L Normal 15-46 [facility] Comment on above: Performed By: #### C MP3M, TSH5, HEMDF, B12 #### [facility] [address] [place], [place] Bilirubin [Mass/Vol] 0.2 mg/dL Normal 0.2-1.3 [facility] Comment on above: Performed By: #### C MP3M, TSH5, HEMDF, B12 #### [address] [address] Calcium [Mass/Vol] 8.7 mg/dL Normal 8.4-10.4 [facility] Comment on above: Performed By: #### C MP3M, TSH5, HEMDF, B12 #### [address] [address] Creatinine [Mass/Vol] 1.23 mg/dL Normal 0.52-1.25 [facility] Comment on above: Performed By: #### C MP3M, TSH5, HEMDF, B12 #### [address] [address] GFR/1.73 sq M.predicted among blacks MDRD (S/P/Bld) [Vol rate/Area] 50.6 mL/min/{1.73_m2} Abnormal >60 [facility] Comment on above: Performed By: #### C MP3M, TSH5, HEMDF, B12 #### [address] [address] GFR/1.73 sq M.predicted among non-blacks MDRD (S/P/Bld) [Vol rate/Area] 43.6 mL/min/{1.73_m2} Abnormal >60 [facility] Comment on above: Result Comment: KDIG [...] #### C MP3M, TSH5, HEMDF, B12 #### [address] [place] [address] Glucose [Mass/Vol] 116 mg/dL High 70-100 [facility] Comment on above: Performed By: #### C MP3M, TSH5, HEMDF, B12 #### [facility] [address] [place] [address] Protein [Mass/Vol] 7.1 g/dL Normal 6.3-8.2 [facility] Comment on above: Performed By: #### C MP3M, TSH5, HEMDF, B12 #### [place] [address] [place] [address] Urea nitrogen [Mass/Vol] 13 mg/dL Normal 9-20 [facility] Comment on above: Performed By: #### C MP3M, TSH5, HEMDF, B12 #### [place] [address] [place] [address] Anion gap [Moles/Vol] 11 mmol/L Normal 3-13 [facility] Comment on above: Performed By: #### C MP3M, TSH5, HEMDF, B12 #### [place] [address] [place] [address] CO2 [Moles/Vol] 24 mmol/L Normal 22-30 [facility] Comment on above: Performed By: #### C MP3M, TSH5, HEMDF, B12 #### [place] [address] [place] [address] Albumin [Mass/Vol] 3.9 g/dL Normal 3.5-5.0 [facility] Comment on above: Performed By: #### C MP3M, TSH5, HEMDF, B12 #### [place] [address] [place] [address] Potassium [Moles/Vol] 3.8 mmol/L Normal 3.5-5.1 [facility] Comment on above: Performed By: #### C MP3M, TSH5, HEMDF, B12 #### [place] [address] [place] [address] Chloride [Moles/Vol] 103 mmol/L Normal 98-107 [facility] Comment on above: Performed By: #### C MP3M, TSH5, HEMDF, B12 #### [facility] [address] [place] [address] Sodium [Moles/Vol] 138 mmol/L Normal 135-145 [facility] Comment on above: Performed By: #### C MP3M, TSH5, HEMDF, B12 #### [facility] [address] [place] [address] Echo Complete w/wo Contrasto n 01-05-2022 Echo Complete w/wo Contrast Patient Name: ANDRE BLANCA Ultrasound ACCESSION EXAM DATE/TIME PROCEDURE ORDERING PROVIDER [id number] 01/05/2022 11:40 EDT Echo Complete w/wo BEN COCHRAN Reason For Exam (Echo Complete w/wo Contrast) Recurrent syncope; labile BP Addendum TRANSTHORACIC ECHOCARDIOGRAM (AMENDED REPORT ) PATIENT: Andre Blanca STUDY DATE: 01/05/2022 Lila : 1950 AGE: 71 HT/WT: 170.2 cm (67 93 kg (204.6 in) lb) GENDER: F BP: 158 / 74 LOCATION: [facility] PATIENT Inpatient main STATUS: *ORDERING PHYSICIAN: * Ben Cochran MD *READING PHYSICIAN: * Aj, *SECURITIES ANALYST: * Genaro Camacho [facility] ----- INDICATIONS: Recurrent syncope; labile bp. ----- [...] mm Hg (more content not included)... Normal [facility] Hemogram w/ Autodiffon 01-05 Abs Baso Cnt 0.1 10*3/uL Normal 0.0-0.2 [facility] Comment on above: Performed By: #### C MP3M, TSH5, HEMDF, B12 #### [facility] [email or web address] [address] [place] [address] Abs Neutrophile Cnt 6.4 10*3/uL Normal 1.8-7.0 [facility] Comment on above: Performed By: #### C MP3M, TSH5, HEMDF, B12 #### [facility] [employer] [facility] [address] [place] [address] Basophils/100 WBC (Bld) 1.1 % Normal 0.0-2.0 [facility] Comment on above: Performed By: #### C MP3M, TSH5, HEMDF, B12 #### [facility] [employer] [facility] [address] [place] [address] Eosinophils (Bld) [#/Vol] 0.5 10*3/uL Normal 0.0-0.5 [facility] Comment on above: Performed By: #### C MP3M, TSH5, HEMDF, B12 #### [place] [address] [address] [place] Eosinophils/100 WBC (Bld) 4.9 % Normal 1.0-6.0 [facility] Comment on above: Performed By: #### C MP3M, TSH5, HEMDF, B12 #### [place] [address] [address] [place] Erythrocyte distribution width (RBC) [Ratio] 15.1 % High 11.5-14.5 [facility] Comment on above: Performed By: #### C MP3M, TSH5, HEMDF, B12 #### [place] [address] [address] [place] Granulocytes/100 WBC (Bld) 62.5 % Normal 40.0-80.0 [facility] Comment on above: Performed By: #### C MP3M, TSH5, HEMDF, B12 #### [place] [address] [address] [place] Hematocrit (Bld) [Volume fraction] 38.6 % Normal 35.0-47.0 [facility] Comment on above: Performed By: #### C MP3M, TSH5, HEMDF, B12 #### [place] [address] [address] [place] Hemoglobin (Bld) [Mass/Vol] 12.5 g/dL Normal 11.7-16.0 [facility] Comment on above: Performed By: #### C MP3M, TSH5, HEMDF, B12 #### [place] [address] [address] [place] Lymphocytes (Bld) [#/Vol] 2.5 10*3/uL Normal 1.0-4.3 [facility] Comment on above: Performed By: #### C MP3M, TSH5, HEMDF, B12 #### [place] [address] [address] [place] Lymphocytes/100 WBC (Bld) 24.5 % Normal 20.0-40.0 [facility] Comment on above: Performed By: #### C MP3M, TSH5, HEMDF, B12 #### [facility] [address] [place] MCH (RBC) [Entitic mass] 28.1 pg Normal 26.0-34.0 [facility] Comment on above: Performed By: #### C MP3M, TSH5, HEMDF, B12 #### [place] [address] [address] [place] MCHC 32.3 % Normal 32.0-36.0 [facility] Comment on above: Performed By: #### C MP3M, TSH5, HEMDF, B12 #### [place] [address] [address] [place] MCV (RBC) [Entitic vol] 87.1 fL Normal 79.0-98.0 [facility] Comment on above: Performed By: #### C MP3M, TSH5, HEMDF, B12 #### [place] [address] [address] [place] Monocytes (Bld) [#/Vol] 0.7 10*3/uL Normal 0.0-0.8 [facility] Comment on above: Performed By: #### C MP3M, TSH5, HEMDF, B12 #### [place] [address] [address] [place] Monocytes/100 WBC (Bld) 7.0 % Normal 2.0-10.0 [facility] Comment on above: Performed By: #### C MP3M, TSH5, HEMDF, B12 #### [place] [address] [address] [place] Platelet mean volume (Bld) [Entitic vol] 8.2 fL Normal 7.4-12.4 [facility] Comment on above: Result Comment: MPV is a calculated measurement using platelet volume ratio. Performed By: #### C MP3M, TSH5, HEMDF, B12 #### [place] [address] [address] [place] Platelets (Bld) [#/Vol] 292 10*3/uL Normal 140-440 [facility] Comment on above: Performed By: #### C MP3M, TSH5, HEMDF, B12 #### [facility] [address] [place] RBC (Bld) [#/Vol] 4.43 10*6/uL Normal 3.80-5.20 [facility] Comment on above: Performed By: #### C MP3M, TSH5, HEMDF, B12 #### [place] [address] [address] [place] WBC (Bld) [#/Vol] 10.3 10*3/uL Normal 3.6-10.7 [facility] Comment on above: Performed By: #### C MP3M, TSH5, HEMDF, B12 #### [place] [address] [address] [place] SARS-CoV-2 Antigenon 022 SARS-CoV-2 Antigen Negative Normal Negative [facility] Comment on above: Result Comment: A negative result does not rule out the possibility of SARS-CoV-2 infection. NAAT-based methods should be considered for symptomatic patients presenting greater than seven days after onset of symptoms. Method: Lateral flow immunoassay. Fact sheets for healthcare providers and patients can be found at the following sites: https://www.fda.gov/media/280616/download https://www.fda.gov/media/807874/download Performed By: #### C OVAG #### [place] [address] [address] [address] [place], [place] Thyroid Stim. Hormoneon - Thyroid Stim. Hormone < 0.015 Low 0.465-4.680 [facility] Comment on above: Performed By: #### C MP3M, TSH5, HEMDF, B12 #### [place] [address] [address] [place], [place] Vit D 25-OH, Totalon 022 Vit D 25-OH, Total 42 ng/mL Normal 30-100 [facility] Comment on above: Result Comment: Ther apy is based on measurement of Total 25-OHD with the following classification levels: Less than 20 ng/mL: Indicative of Vit D deficiency 20-30 ng/mL: Suggests Vit D insufficiency Optimal: Greater than or equal to 30 ng/mL Test performed by [employer] Competitive Immunoassay, measuring Total Vitamin D, not individual fractions. Performed By: #### V D25H ####[facility] [place] [address] Vitamin B12on 01-05-2022 Cobalamin (Vitamin B12) [Mass/Vol] 400 pg/mL Normal 239-931 [facility] Comment on above: Performed By: #### C MP3M, TSH5, HEMDF, B12 ####[facility] [place] [address] Basic Metabolic Panelon 12-13 Anion gap [Moles/Vol] 7 mmol/L Normal 3-13 [facility] Comment on above: Performed By: #### T ROPN, LACT3, PT/AP, ETOH4, BMP3, HEMOG ####[facility] [place] [address] Calcium [Mass/Vol] 8.6 mg/dL Normal 8.4-10.4 [facility] Comment on above: Performed By: #### T ROPN, LACT3, PT/AP, ETOH4, BMP3, HEMOG ####[facility] [place] [address] CO2 [Moles/Vol] 26 mmol/L Normal 22-30 [facility] Comment on above: Performed By: #### T ROPN, LACT3, PT/AP, ETOH4, BMP3, HEMOG ####[facility] [place] [address] Glucose [Mass/Vol] 104 mg/dL High 70-100 [facility] Comment on above: Performed By: #### T ROPN, LACT3, PT/AP, ETOH4, BMP3, HEMOG ####[facility] [place] [address] Urea nitrogen [Mass/Vol] 11 mg/dL Normal 9-20 [facility] Comment on above: Performed By: #### T ROPN, LACT3, PT/AP, ETOH4, BMP3, HEMOG ####[facility] [place], [place] Creatinine [Mass/Vol] 1.12 mg/dL Normal 0.52-1.25 [facility] Comment on above: Performed By: #### T ROPN, LACT3, PT/AP, ETOH4, BMP3, HEMOG ####[place] [address] [place], [place] GFR/1.73 sq M.predicted among blacks MDRD (S/P/Bld) [Vol rate/Area] 56.6 mL/min/{1.73_m2} Abnormal >60 [facility] Comment on above: Performed By: #### T ROPN, LACT3, PT/AP, ETOH4, BMP3, HEMOG ####[place] [address] [place], [place] GFR/1.73 sq M.predicted among non-blacks MDRD (S/P/Bld) [Vol rate/Area] 48.9 mL/min/{1.73_m2} Abnormal >60 [facility] Comment on above: Result Comment: KDIG [...] T ROPN, LACT3, PT/AP, ETOH4, BMP3, HEMOG ####[place] [address] [place], [place] Chloride [Moles/Vol] 104 mmol/L Normal 98-107 [facility] Comment on above: Performed By: #### T ROPN, LACT3, PT/AP, ETOH4, BMP3, HEMOG ####[place] [address] [place] [address] Potassium [Moles/Vol] 3.7 mmol/L Normal 3.5-5.1 [facility] Comment on above: Result Comment: Slig htly hemolysed, interpret with caution. Performed By: #### T ROPN, LACT3, PT/AP, ETOH4, BMP3, HEMOG ####[facility] [place] [address] Sodium [Moles/Vol] 137 mmol/L Normal 135-145 [facility] Comment on above: Performed By: #### T ROPN, LACT3, PT/AP, ETOH4, BMP3, HEMOG ####[place] [address] [place] [address] CR Chest Portableon 01-05-20 22 CR Chest Portable Patient Name: ANDRE BLANCA Diagnostic Radiology ACCESSION EXAM DATE/TIME PROCEDURE ORDERING PROVIDER [id number] 01/04/2022 11:28 EDT CR Chest Portable JESSIKA COLLINS CPT code 28528 Reason For Exam (CR Chest Portable) chest [...] Transcribed Date and Time: 01/04/2022 11:35 Normal [facility] CR Elbow 3+ Views Righton CR Elbow 3+ Views Right Patient Name: ANDRE BLANCA Diagnostic Radiology ACCESSION EXAM DATE/TIME PROCEDURE ORDERING PROVIDER [id number] 01/04/2022 11:52 EDT CR Elbow 3+ Views Right [id number] GERONIMO ESPINOSA CPT code 33640 Reason For Exam (CR Elbow 3+ Views [...] Transcribed Date and Time: 01/04/2022 12:06 Normal [facility] CR Femur 2+ Views Righton CR Femur 2+ Views Right Patient Name: ANDRE BLANCA Diagnostic Radiology ACCESSION EXAM DATE/TIME PROCEDURE ORDERING PROVIDER [id number] 01/04/2022 11:52 EDT CR Femur 2+ Views Right [id number] GERONIMO ESPINOSA n CPT code 19626 Reason For Exam (CR Femur 2+ Views [...] Transcribed Date and Time: 01/04/2022 12:05 Normal [facility] CR Pelvis 1 or 2 Viewson CR Pelvis 1 or 2 Views Patient Name: ANDRE BLANCA Diagnostic Radiology ACCESSION EXAM DATE/TIME PROCEDURE ORDERING PROVIDER [id number] 01/04/2022 11:28 EDT CR Pelvis 1 or 2 Views JESSIKA COLLINS CPT code 35882 Reason For Exam (CR Pelvis 1 or [...] Transcribed Date and Time: 01/04/2022 11:34 Normal [facility] CR Spine Cervical 2 or 3 Vie wson 01-04-2022 CR Spine Cervical 2 or 3 Views Patient Name: ANDRE BLANCA Diagnostic Radiology ACCESSION EXAM DATE/TIME PROCEDURE ORDERING PROVIDER [id number] 01/04/2022 13:47 EDT CR Spine Cervical 2 or 3 [id number] -GERONIMO RODRIGUEZ Views CPT code 71943 Reason For Exam (CR Spine Cervical 2 [...] Transcribed Date and Time: 01/04/2022 2:05 Normal [facility] CT Head or Brain w/o Contras ton 01-04-2022 CT Head or Brain w/o Contrast Patient Name: ANDRE BLANCA Computed Tomography ACCESSION EXAM DATE/TIME PROCEDURE ORDERING PROVIDER [id number] 01/04/2022 11:[address] Head or Brain w/o JESSIKA COLLINS Contrast CPT code 72432 Reason For Exam (CT Head or Brain [...] Transcribed Date and Time: 01/04/2022 11:54 Normal [facility] CT Spine Cervical w/o Contra ston 01-04-2022 CT Spine Cervical w/o Contrast [facility]: [id number] ACCESSION EXAM DATE/TIME PROCEDURE ORDERING PROVIDER [id number] 01/04/2022 11:[address] Spine Cervical w/o JESSIKA COLLINS Contrast CPT code 19726 Reason For Exam (CT Spine Cervical w/o [...] Transcribed Date and Time: 01/04/2022 11:56 Normal [facility] ED Provider Noteon ED Provider Note [...] MG TABLET CHOLECALCIFEROL (VITAMIN D3) 1.25 MG (95048 UT) CAPS Take by mouth once a [...] Alcohol use: (more content not included)... Normal [facility] Ethanol Serum/Plasmaon 01-04 Ethanol-Serum/Plasma < 0.010 Normal 0.000-0.010 [facility] Comment on above: Result Comment: NOTE : This result is for medical treatment only. Analysis performed using non-forensic procedures. Performed By: #### T ROPN, LACT3, PT/AP, ETOH4, BMP3, HEMOG ####[place] [address] [place] [address] Hemogramon 01-04-2022 Erythrocyte distribution width (RBC) [Ratio] 15.1 % High 11.5-14.5 [facility] Comment on above: Performed By: #### T ROPN, LACT3, PT/AP, ETOH4, BMP3, HEMOG ####[place] [address] [place], [place] Hematocrit (Bld) [Volume fraction] 36.8 % Normal 35.0-47.0 [facility] Comment on above: Performed By: #### T ROPN, LACT3, PT/AP, ETOH4, BMP3, HEMOG ####[place] [address] [place], [place] Hemoglobin (Bld) [Mass/Vol] 12.0 g/dL Normal 11.7-16.0 [facility] Comment on above: Performed By: #### T ROPN, LACT3, PT/AP, ETOH4, BMP3, HEMOG ####[place] [address] [place], [place] MCH (RBC) [Entitic mass] 28.3 pg Normal 26.0-34.0 [facility] Comment on above: Performed By: #### T ROPN, LACT3, PT/AP, ETOH4, BMP3, HEMOG ####[place] [place], [place] MCHC 32.5 % Normal 32.0-36.0 [facility] Comment on above: Performed By: #### T ROPN, LACT3, PT/AP, ETOH4, BMP3, HEMOG ####[place] [address] [place], [place] MCV (RBC) [Entitic vol] 87.0 fL Normal 79.0-98.0 [facility] Comment on above: Performed By: #### T ROPN, LACT3, PT/AP, ETOH4, BMP3, HEMOG ####[place] [place], [place] Platelet mean volume (Bld) [Entitic vol] 8.0 fL Normal 7.4-12.4 [facility] Comment on above: Result Comment: MPV is a calculated measurement using platelet volume ratio. Performed By: #### T ROPN, LACT3, PT/AP, ETOH4, BMP3, HEMOG ####[place] [place], [place] Platelets (Bld) [#/Vol] 303 10*3/uL Normal 140-440 [facility] Comment on above: Performed By: #### T ROPN, LACT3, PT/AP, ETOH4, BMP3, HEMOG ####[place] [place], [place] RBC (Bld) [#/Vol] 4.23 10*6/uL Normal 3.80-5.20 [facility] Comment on above: Performed By: #### T ROPN, LACT3, PT/AP, ETOH4, BMP3, HEMOG ####[place] [address] [place], [place] WBC (Bld) [#/Vol] 6.4 10*3/uL Normal 3.6-10.7 [facility] Comment on above: Performed By: #### T ROPN, LACT3, PT/AP, ETOH4, BMP3, HEMOG ####[address] Lactic Acidon 01-04-2022 Lactate [Moles/Vol] 1.9 mmol/L Normal 0.7-2.0 [facility] Comment on above: Performed By: #### T ROPN, LACT3, PT/AP, ETOH4, BMP3, HEMOG ####[place] [address] [place], [place] Protime AND APTTon aPTT Coag (Bld) [Time] 28.5 s Normal 20.0-30.5 [facility] Comment on above: Result Comment: NOTE : The therapeutic time for Heparin anticoagulation, based on Xa activity inhibition, is an APTT of 46-80 seconds. Performed By: #### T ROPN, LACT3, PT/AP, ETOH4, BMP3, HEMOG ####[place] [place], [place] INR 1.1 Normal 0.9-1.1 [facility] Comment on above: Result Comment: Que [...] T ROPN, LACT3, PT/AP, ETOH4, BMP3, HEMOG ####[place] [address] [place], [place] PT Coag (PPP) [Time] 11.4 s Normal 9.0-12.0 [facility] Comment on above: Result Comment: . Performed By: #### T ROPN, LACT3, PT/AP, ETOH4, BMP3, HEMOG ####[place] [address] [employer], [place] TS GELon 01-04-2022 TS GEL ABO Group: O Rh, Gel: POS Antibody Screen Gel: NEG Normal [facility] Comment on above: Performed By: #### T SGL ####[facility] Troponin Ion 01-04-2022 Troponin I.cardiac [Mass/Vol] ng/mL Normal 0.000-0.034 [facility] Comment on above: Result Comment: . Performed By: #### T ROPN, LACT3, PT/AP, ETOH4, BMP3, HEMOG ####[place] [address] [employer] [employer], [place] CT Up Ext w/o Contrast Lefto n 12-27-2021 CT Up Ext w/o Contrast Left [facility]: [id number] Comput[facility] Tomography ACCESSION EXAM DATE/TIME PROCEDURE ORDERING PROVIDER [id number] 12/27/2021 14:[address] Up Ext w/o Contrast MD JB, KIM Hager Left CPT code 10518 Reason For Exam (CT Up Ext w/o [...] Transcribed Date and Time: 12/27/2021 3:32 Normal [facility] Basophil percentageon 2021 Cholesterol [Mass/Vol] 124 mg/dL <200 [facility] Work Phone: Comment on above: <200 mg/dL Desirable 200-240 mg/dL Borderline >240 mg/dL High Risk Triglyceride [Mass/Vol] 154 mg/dL <199 [facility] Work Phone: Comment on above: The drugs N-Acetylcy steine and Metamizole may falsely depress this assay.Serum Triglycerides Reference Interval Normal <150 mg/dL Borderline high 150 - 199 mg/dL High 200 - 499 mg/dL Very High > or = 500 mg/dL Serum or plasma cholesterol in HDL measurement (mass/volume)on 12-20-2021 Cholesterol in HDL [Mass/Vol] 33 mg/dL >40 [facility] Work Phone: Comment on above: The drugs N-Acetylcy steine and Metamizole may falsely depress this assay. Reference Range HDL <40 mg/dL Low HDL Cholesterol HDL >or= 60 mg/dL High HDL Cholesterol Serum or plasma cholesterol in VLDL measurement (mass/volume)on 12-20-2021 Cholesterol in VLDL [Mass/Vol] 31 mg/dL 5-40 [facility] Work Phone: Serum or plasma low density lipoprotein (LDL) cholesterol measurement (mass/volume)on 12-20-2021 Cholesterol in LDL [Mass/Vol] 60 mg/dL 0-130 [facility] Work Phone: Absolute lymphocyte counton 12-13-2021 Lymphocytes Auto (Unsp spec) [#/Vol] 2.07 10*3/uL 0.83-4.51 [facility] Work Phone: Basophil percentageon 2021 Basophils/100 WBC (Bld) 1.3 % 0-1 [facility] Work Phone: Chloride [Moles/Vol] 107 mmol/L 98-107 [facility] Work Phone: Eosinophils/100 WBC (Bld) 5.3 % 0-5 [facility] Work Phone: Glucose [Mass/Vol] 96 mg/dL 74-106 [facility] Work Phone: Neutrophils (Bld) [#/Vol] 4.1 10*3/uL 2.0-7.7 [facility] Work Phone: [phone] Neutrophils/100 WBC (Bld) 57.1 % 47-70 [facility] Work Phone: Potassium [Moles/Vol] 4.0 mmol/L 3.5-5.1 [facility] Work Phone: Comment on above: Moderate Hemolysis, Result may be falsely increased. Sodium [Moles/Vol] 137 mmol/L 136-145 [facility] Work Phone: [phone] WBC (Bld) [#/Vol] 7.2 10*3/uL 4.4-11.0 [facility] Work Phone: Blood erythrocytes count (nu mber/volume)on 12-13-2021 RBC (Bld) [#/Vol] 4.23 10*6/uL 4.2-5.4 [facility]: Blood hemoglobin measurement (mass/volume)on 12-13-2021 Hemoglobin (Bld) [Mass/Vol] 12.0 g/dL 12.0-15.0 [facility] Work Phone: Blood lymphocytes/100 leukoc yteson 12-13-2021 Lymphocytes/100 WBC (Bld) 28.9 % 19-41 [facility] Work Phone: Blood monocytes/100 leukocyt eson 12-13-2021 Monocytes/100 WBC (Bld) 7.1 % 0-10 [facility] Work Phone: Blood platelet mean volumeon 12-13-2021 Platelet mean volume (Bld) [Entitic vol] 10.2 fL 6.2-12.0 [facility] Work Phone: Determination of erythrocyte mean corpuscular volume (MCV)on 12-13-2021 MCV (RBC) [Entitic vol] 94.6 fL 81-99 [facility] Work Phone: Hematocrit Auto (Bld) [Volum e fraction]on 12-13-2021 Hematocrit (Bld) [Volume fraction] 40.0 % 37-47 [facility] Work Phone: Laboratory - Chemistry and C hemistry - challengeon 12-13-2021 CO2 [Moles/Vol] 24.0 mmol/L 21.0-32.0 [facility] Work Phone: Urea nitrogen/Creatinine [Mass ratio] 18.7 mg/mg 10-20 [facility] Work Phone: Laboratory - Hematology and Cell countson 12-13-2021 Erythrocyte distribution width (RBC) [Entitic vol] 46.8 fL 35.1-43.9 [facility] Work Phone: Erythrocyte distribution width (RBC) [Ratio] 13.5 % 11.6-14.6 [facility] Work Phone: Immature granulocytes/100 WBC (Bld) 0.300 % 0.0-0.9 [facility] Work Phone: Comment on above: IG% - Immature Granu locytes (promyelocytes, myelocytes and metamyelocytes) > 1% indicates that a LEFT SHIFT is Present. MCH (RBC) [Entitic mass] 28.4 pg 27.0-32.0 [facility] Work Phone: Nucleated RBC/100 WBC (Bld) [Ratio] 0 % 0-5 [facility] Work Phone: MCHC Auto (RBC) [Mass/Vol]on 12-13-2021 MCHC (RBC) [Mass/Vol] 30.0 g/dL 32-36 [facility] Work Phone: No Panel Informationon 12-13 Estimated GFR (MDRD) Amer 98 mL/min >60 [facility] Work Phone: Comment on above: GFR Calc Estimated GFR (MDRD) Non-Af Amer 81 mL/min >60 [facility] Work Phone: Comment on above: Non- GFR Calc Platelets bldon 12-13-2021 Platelets (Bld) [#/Vol] 258 10*3/uL 150-450 [facility] Work Phone: Serum or plasma calcium carlie urement (mass/volume)on 12-13-2021 Calcium [Mass/Vol] 8.8 mg/dL 8.5-10.1 [facility] Work Phone: Serum or plasma creatinine m easurement (mass/volume)on 12-13-2021 Creatinine [Mass/Vol] 0.75 mg/dL 0.55-1.02 [facility] Work Phone: Comment on above: The validity of the calculated GFR & GFRAA in patients over 70 years has not been determined. Clinical correlation is essential. Serum or plasma urea nitroge n measurement (mass/volume)on 12-13-2021 Urea nitrogen [Mass/Vol] 14 mg/dL 7-18 [facility] Work Phone: Thin prep Papanicolaou smear with manual screeningon 12-13-2021 Thin prep Papanicolaou smear with manual screening 6 5-15 [facility] Work Phone: Basophil percentageon 2021 Bilirubin [Mass/Vol] 0.20 mg/dL 0.20-1.00 [facility] Work Phone: Comment on above: For patients on eltr ombopag therapy, use of Dimension [place]ickley TBIL is not recommended. Chloride [Moles/Vol] 106 mmol/L 98-107 [facility] Work Phone: Glucose [Mass/Vol] 115 mg/dL 74-106 [facility] Work Phone: Comment on above: Fasting Glucose resu lt from 100 to 125 mg/dL suggests IMPAIRED HOMEOSTASIS per A.D.A. criteria. Potassium [Moles/Vol] 3.1 mmol/L 3.5-5.1 [facility] Work Phone: Protein [Mass/Vol] 6.4 g/dL 6.4-8.2 [facility] Work Phone: Sodium [Moles/Vol] 142 mmol/L 136-145 [facility] Work Phone: WBC (Bld) [#/Vol] 7.3 10*3/uL 4.4-11.0 [facility] Work Phone: Blood erythrocytes count (nu mber/volume)on 11-29-2021 RBC (Bld) [#/Vol] 3.88 10*6/uL 4.2-5.4 [facility] Work Phone: Blood hemoglobin measurement (mass/volume)on 11-29-2021 Hemoglobin (Bld) [Mass/Vol] 11.0 g/dL 12.0-15.0 [facility] Work Phone: Blood platelet mean volumeon 11-29-2021 Platelet mean volume (Bld) [Entitic vol] 10.3 fL 6.2-12.0 [facility] Work Phone: Determination of erythrocyte mean corpuscular volume (MCV)on 11-29-2021 MCV (RBC) [Entitic vol] 88.7 fL 81-99 [facility] Work Phone: Direct bilirubinon 2 Bilirubin.direct [Mass/Vol] 0.09 mg/dL 0.00-0.30 [facility] Work Phone: Hematocrit Auto (Bld) [Volum e fraction]on 11-29-2021 Hematocrit (Bld) [Volume fraction] 34.4 % 37-47 [facility] Work Phone: Laboratory - Chemistry and C hemistry - challengeon 11-29-2021 ALP [Catalytic activity/Vol] 128 U/L 45-117 [facility] Work Phone: ALT [Catalytic activity/Vol] 14 U/L 13-56 [facility] Work Phone: CO2 [Moles/Vol] 31.0 mmol/L 21.0-32.0 [facility] Work Phone: Globulin (S) [Mass/Vol] 3.7 g/dL 2.2-4.2 [facility] Work Phone: Urea nitrogen/Creatinine [Mass ratio] 10.8 mg/mg 10-20 [facility] Work Phone: Laboratory - Hematology and Cell countson 11-29-2021 Erythrocyte distribution width (RBC) [Entitic vol] 42.3 fL 35.1-43.9 [facility] Work Phone: Erythrocyte distribution width (RBC) [Ratio] 13.1 % 11.6-14.6 [facility] Work Phone: MCH (RBC) [Entitic mass] 28.4 pg 27.0-32.0 [facility] Work Phone: MCHC Auto (RBC) [Mass/Vol]on 11-29-2021 MCHC (RBC) [Mass/Vol] 32.0 g/dL 32-36 [facility] Work Phone: No Panel Informationon 11-29 Carbamazepine (Tegretol) Level 9.6 ug/mL 4.0-12.0 [facility] Work Phone: Estimated GFR (MDRD) Amer 99 mL/min >60 [facility] Work Phone: Comment on above: GFR Calc Estimated GFR (MDRD) Non-Af Amer 81 mL/min >60 [facility] Work Phone: Comment on above: Non- GFR Calc Platelets bldon 11-29-2021 Platelets (Bld) [#/Vol] 277 10*3/uL 150-450 [facility] Work Phone: Serum or plasma albumin carlie urement (mass/volume)on 11-29-2021 Albumin [Mass/Vol] 2.7 g/dL 3.2-5.0 [facility] Work Phone: Serum or plasma albumin/glob ulin mass ratioon 11-29-2021 Albumin/Globulin [Mass ratio] 0.7 {ratio} 0.9-2.4 [facility] Work Phone: Serum or plasma calcium carlie urement (mass/volume)on 11-29-2021 Calcium [Mass/Vol] 8.2 mg/dL 8.5-10.1 [facility] Work Phone: Serum or plasma creatinine m easurement (mass/volume)on 11-29-2021 Creatinine [Mass/Vol] 0.74 mg/dL 0.55-1.02 [facility] Work Phone: Comment on above: The validity of the calculated GFR & GFRAA in patients over 70 years has not been determined. Clinical correlation is essential. Serum or plasma urea nitroge n measurement (mass/volume)on 11-29-2021 Urea nitrogen [Mass/Vol] 8 mg/dL 7-18 [facility] Work Phone: Thin prep Papanicolaou smear with manual screeningon 11-29-2021 Thin prep Papanicolaou smear with manual screening 13 U/L 15-37 [facility] Work Phone: Thin prep Papanicolaou smear with manual screening 5 5-15 [facility] Work Phone: Basophil percentageon 2021 Chloride [Moles/Vol] 106 mmol/L 98-107 [facility]: Glucose [Mass/Vol] 89 mg/dL 74-106 [facility] Work Phone: Potassium [Moles/Vol] 3.7 mmol/L 3.5-5.1 [facility] Work Phone: Sodium [Moles/Vol] 141 mmol/L 136-145 [facility] Work Phone: WBC (Bld) [#/Vol] 6.9 10*3/uL 4.4-11.0 [facility] Work Phone: Blood erythrocytes count (nu mber/volume)on 11-05-2021 RBC (Bld) [#/Vol] 4.16 10*6/uL 4.2-5.4 [facility] Work Phone: Blood hemoglobin measurement (mass/volume)on 11-05-2021 Hemoglobin (Bld) [Mass/Vol] 12.3 g/dL 12.0-15.0 [facility] Work Phone: Blood platelet mean volumeon 11-05-2021 Platelet mean volume (Bld) [Entitic vol] 10.2 fL 6.2-12.0 [facility] Work Phone: Determination of erythrocyte mean corpuscular volume (MCV)on 11-05-2021 MCV (RBC) [Entitic vol] 89.9 fL 81-99 [facility] Work Phone: Hematocrit Auto (Bld) [Volum e fraction]on 11-05-2021 Hematocrit (Bld) [Volume fraction] 37.4 % 37-47 [facility] Work Phone: Laboratory - Chemistry and C hemistry - challengeon 11-05-2021 CO2 [Moles/Vol] 32.0 mmol/L 21.0-32.0 [facility] Work Phone: Urea nitrogen/Creatinine [Mass ratio] 7.3 mg/mg 10-20 [facility] Work Phone: Laboratory - Hematology and Cell countson 11-05-2021 Erythrocyte distribution width (RBC) [Entitic vol] 42.3 fL 35.1-43.9 [facility] Work Phone: Erythrocyte distribution width (RBC) [Ratio] 12.8 % 11.6-14.6 [facility] Work Phone: MCH (RBC) [Entitic mass] 29.6 pg 27.0-32.0 [facility] Work Phone: MCHC Auto (RBC) [Mass/Vol]on 11-05-2021 MCHC (RBC) [Mass/Vol] 32.9 g/dL 32-36 [facility] Work Phone: No Panel Informationon 11-05 Estimated GFR (MDRD) Amer 87 mL/min >60 [facility] Work Phone: Comment on above: GFR Calc Estimated GFR (MDRD) Non-Af Amer 72 mL/min >60 [facility] Work Phone: Comment on above: Non- GFR Calc Platelets bldon 11-05-2021 Platelets (Bld) [#/Vol] 294 10*3/uL 150-450 [facility] Work Phone: Serum or plasma calcium carlie urement (mass/volume)on 11-05-2021 Calcium [Mass/Vol] 8.6 mg/dL 8.5-10.1 [facility] Work Phone: Serum or plasma creatinine m easurement (mass/volume)on 11-05-2021 Creatinine [Mass/Vol] 0.83 mg/dL 0.55-1.02 [facility] Work Phone: Comment on above: The validity of the calculated GFR & GFRAA in patients over 70 years has not been determined. Clinical correlation is essential. Serum or plasma urea nitroge n measurement (mass/volume)on 11-05-2021 Urea nitrogen [Mass/Vol] 6 mg/dL 7-18 [facility] Work Phone: Thin prep Papanicolaou smear with manual screeningon 11-05-2021 Thin prep Papanicolaou smear with manual screening 3 5-15 [facility] Work Phone: Basophil percentageon 2021 Bilirubin [Mass/Vol] 0.20 mg/dL 0.20-1.00 [facility] Work Phone: Comment on above: For patients on eltr ombopag therapy, use of Dimension [place] TBIL is not recommended. Protein [Mass/Vol] 6.8 g/dL 6.4-8.2 [facility] Work Phone: WBC (Bld) [#/Vol] 5.9 10*3/uL 4.4-11.0 [facility] Work Phone: Blood erythrocytes count (nu mber/volume)on 09-24-2021 RBC (Bld) [#/Vol] 3.96 10*6/uL 4.2-5.4 [facility] Work Phone: Blood hemoglobin measurement (mass/volume)on 09-24-2021 Hemoglobin (Bld) [Mass/Vol] 11.6 g/dL 12.0-15.0 [facility] Work Phone: Blood platelet mean volumeon 09-24-2021 Platelet mean volume (Bld) [Entitic vol] 10.2 fL 6.2-12.0 [facility] Work Phone: Determination of erythrocyte mean corpuscular volume (MCV)on 09-24-2021 MCV (RBC) [Entitic vol] 89.9 fL 81-99 [facility] Work Phone: Direct bilirubinon 2 Bilirubin.direct [Mass/Vol] 0.10 mg/dL 0.00-0.30 [facility] Work Phone: Hematocrit Auto (Bld) [Volum e fraction]on 09-24-2021 Hematocrit (Bld) [Volume fraction] 35.6 % 37-47 [facility] Work Phone: Laboratory - Chemistry and C hemistry - challengeon 09-24-2021 ALP [Catalytic activity/Vol] 132 U/L 45-117 [facility] Work Phone: ALT [Catalytic activity/Vol] 15 U/L 13-56 [facility] Work Phone: Globulin (S) [Mass/Vol] 3.9 g/dL 2.2-4.2 [facility] Work Phone: Laboratory - Hematology and Cell countson 09-24-2021 Erythrocyte distribution width (RBC) [Entitic vol] 48.8 fL 35.1-43.9 [facility] Work Phone: Erythrocyte distribution width (RBC) [Ratio] 14.6 % 11.6-14.6 [facility] Work Phone: MCH (RBC) [Entitic mass] 29.3 pg 27.0-32.0 [facility] Work Phone: MCHC Auto (RBC) [Mass/Vol]on 09-24-2021 MCHC (RBC) [Mass/Vol] 32.6 g/dL 32-36 [facility] Work Phone: No Panel Informationon 09-24 Carbamazepine (Tegretol) Level 9.7 ug/mL 4.0-12.0 [facility] Work Phone: Platelets bldon 09-24-2021 Platelets (Bld) [#/Vol] 268 10*3/uL 150-450 [facility] Work Phone: Serum or plasma albumin carlie urement (mass/volume)on 09-24-2021 Albumin [Mass/Vol] 2.9 g/dL 3.2-5.0 [facility] Work Phone: Thin prep Papanicolaou smear with manual screeningon 09-24-2021 Thin prep Papanicolaou smear with manual screening 20 U/L 15-37 [facility] Work Phone: XR Shoulder Left 2 VWOrdered By: Opal Espinoza on 12-07-2020 Patient Name: ANDRE BLANCA Diagnostic Radiology ACCESSION EXAM DATE/TIME PROCEDURE ORDERING PROVIDER [id number] 12/07/2020 09:55 EDT CR Shoulder 2+ Views OPAL ESPINOZA Left CPT code 49069 Reason For Exam (CR Shoulder 2+ Views [...] Time: 12/07/2020 10:16 [facility] Work Phone: Scott, [facility] Incoming Radiology Results From [facility] - 12/07/2020 10:16 AM EDT Patient Name: ANDRE BLANCA Diagnostic Radiology ACCESSION EXAM DATE/TIME PROCEDURE ORDERING PROVIDER [id number] 12/07/2020 09:55 EDT CR Shoulder 2+ Views OPAL ESPINOZA Left CPT code 51464 Reason For Exam (CR Shoulder 2+ Views [...] ANTHONY Transcribed Date and Time: 12/07/2020 10:16 [facility] Work Phone: Complete PFT Study Pre and P ost Bronchodilatoron 11-17-2020 Name: ANDRE BLANCA PatientID: [id number] Gender: Female Birthdate: 1950 Study Date: 11/17/2020 11:01:34 A Age: 70 Race: White or Height: 67.0 in, 170.2 cm Weight: 214.0 lbs, 97.3 kg Smoke Status: Quit Pack Years: 62.Tbco Prod: Cigarettes Ordering Physician: [id number] Interpreting Physician: [id number] Drill Sharpener Operator: DIRK Testing Location: [facility] Diagnosis: COPD Spirometry Units Pred PreDrug Pre%Pred Post Post%Pred %Change FVC L,btps 3.34 1.97 59. 1.82 55. -7. FEV1 L,btps 2.53 1.40 55. 1.30 52. -7. FEV1/FVC (%) % 76. 71. 94. 72. 94. 1. ZXP31-89% L/s 2.03 0.89 44. 0.85 42. -5. [...] /MIP cmH2O -77.83 PEmax /MEP cmH2O 97.10 DESCRIPTIVE CATALOG LIBRARIAN NOTES Good Patient effort. Consistent results. Best [...] was instructed and dispensed. Tests to perform: [id number] - FULL PFT STUDY WITH BRONCHODILATOR PHYSICIAN [...] trapping. 5. Diffusion capacity is moderately reduced. [facility] Work Phone: Scott, [employer] Incoming Cardiology Results From [facility] - 11/17/2020 12:08 PM EDT Name: ANDRE BLANCA PatientID: [id number] Gender: Female Birthdate: 1950 Study Date: 11/17/2020 11:01:34 A Age: 70 Race: White or Height: 67.0 in, 170.2 cm Weight: 214.0 lbs, 97.3 kg Smoke Status: Quit Pack Years: 62.Tbco Prod: Cigarettes Ordering Physician: [id number] Interpreting Physician: [id number] Drill Sharpener Operator: DIRK Testing Location: [facility] Diagnosis: COPD Spirometry Units Pred PreDrug Pre%Pred Post Post%Pred %Change FVC L,btps 3.34 1.97 59. 1.82 55. -7. FEV1 L,btps 2.53 1.40 55. 1.30 52. -7. FEV1/FVC (%) % 76. 71. 94. 72. 94. 1. VKN08-51% L/s 2.03 0.89 44. 0.85 42. -5. [...] /MIP cmH2O -77.83 PEmax /MEP cmH2O 97.10 DESCRIPTIVE CATALOG LIBRARIAN NOTES Good Patient effort. Consistent results. Best [...] was instructed and dispensed. Tests to perform: [id number] - FULL PFT STUDY WITH BRONCHODILATOR PHYSICIAN [...] trapping. 5. Diffusion capacity is moderately reduced. [employer] Work Phone: DISCH.SUMon 08-21-2020 [facility] Patient Name: ANDRE BLANCA [address] Date of : [address] [place] [address] Unit Number: [id number] Discharge Summary Patient Status: DIS IN Attending [...] an ... For Providers: Tori Walters [address] [place] [address] Pulmonary In Four-Six ... For Providers: Yamileth Corbin ASW/ASUW TACTICAL AIR CONTROLLER [address] [place] [address] Condition: Improved Disposition Long-Term Facility Phys Discharge Time Incur(Min) 31 CC: Tori Walters Disclaimer This dictation was created using voice recognition software. Phonetic and/or minor grammatical errors may exist. eSign Date and Time Estevan Bauer DO Verified/Reviewed by 09/02/20 0730 Normal [facility] GLUCOSE METERon 08-21-2020 Glucose [Mass/Vol] 134 mg/dL High 85-125 [facility] Glucose [Mass/Vol] 137 mg/dL High 85-125 [facility] 08-21-2020 OT Progress Note Normal [facility] OTPN Occupational Therapy Inpatient Treatment Note Medical Diagnosis: Acute hypoxemic respiratory failure, Syncope, pneumonia, hypothyroidism OCCUPATIONAL PROFILE AND HISTORY Demographics: Age: 70Y Gender: Female Primary Language: Rwandan Preferred Language: Rwandan Referring Service/Team: Medicine Rehabilitation Precautions/Restrictio ns: 4L via NC, puree / nectar diet Patient Report: IM OK, HUNGRY Patient/Caregiver Goals: None stated Pain: Patient currently [...] bed mobility including supine to sit, rolling, [facility] PATIENT NAME: ANDRE BLANCA [facility] Dr. Andrea MEDICAL REC #: [id number] [place] [address] ADMIT DATE: 07/27/20 SERVICE DATE: 08/21/20 Occupational [...] treatment goal(s): 5x a wk until d/c [facility] PATIENT NAME: ANDRE BLANCA [facility] Dr. Andrea MEDICAL REC #: [id number] [place] [address] ADMIT DATE: 07/27/20 SERVICE DATE: 08/21/20 Occupational [...] contact the Acute Therapy Department at extension [phone] Communication to Nursing: No updates at this time. Location of Patient at End of Therapy Session: In chair, chair alarm in place, call light within reach Services: Total Billed: 38 minutes (Timed: 38, Untimed: 0) 23.00 Timed: [71477] ADL-HOME MANAGEMENT EA 15 MIN 15.00 Timed: [73573] THER ACTIVITIES / 15 MIN 0.00 Untimed: [] OT Treatment General ORDER Signed by: SIMONA LLAMAS/Asuncion 08/21/2020 08:35:38 - CoSigned By: ANNIE MEZA/Asuncion 08/21/2020 12:19:11 PM [facility] PATIENT NAME: ANDRE BLANCA Dr. Andrea MEDICAL REC #: [id number] [place] [address] ADMIT DATE: 07/27/20 SERVICE DATE: 08/21/20 Occupational Therapy Progress Note ATTENDING PHY: Marta Horvath DO Normal [facility] PROG.PSYCHon 08-21-2020 PROG.PSYCH [facility] Patient Name: ANDRE [address] Date of : [address] [place], [place] [address] Unit Number: [id number] Progress Note-Psych Patient Status: DIS IN Attending [...] Milind Gates MD Verified/Reviewed by 08/24/20 0743 [facility] Progress Note-Psych [facility] PTPNon 08-21-2020 PT Progress Note [facility] PTPN Physical Therapy Inpatient Treatment Note Medical Diagnosis: 1. Acute hypoxemia respiratory failure 2. Syncope 3. Hypothyroidism multiple rib fxs Demographics: Age: 70Y Gender: Female Primary Language: Rwandan Preferred Language: Rwandan Rehabilitation Precautions/Restrictio ns: 4L via NC, puree / nectar diet SUBJECTIVE Patient Report: When am I going home? Patient/Caregiver Goals: None stated Pain: Patient currently [...] = 39.45 and G-Code Modifier = CK [facility] PATIENT NAME: ANDRE BLANCA [facility] Dr. Andrea MEDICAL REC #: [id number] [place] [address] ADMIT DATE: 07/27/20 SERVICE DATE: 08/21/20 Physical Therapy Progress Note ATTENDING PHY: Marta Horvath DO Vital Signs: SpO2 94% [...] contact the Acute Therapy Department at extension [phone] Location of Patient at End of Therapy Session: In chair, chair alarm in place, call light within reach Services: Total Billed: 24 minutes (Timed: 24, Untimed: 0) 24.00 Timed: [95311] GAIT TRAIN EA 15 MIN 0.00 Untimed: [] PT Treatment- General ORDER Signed by: RENALDO BENAVIDES, 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 08/21/2020 13:44:52 [facility] PATIENT NAME: ANDRE BLANCA [facility] Dr. Andrea MEDICAL REC #: [id number] [place] [address] ADMIT DATE: 07/27/20 SERVICE DATE: 08/21/20 Physical Therapy Progress Note ATTENDING PHY: Marta Horvath DO - CoSigned By: Alivia Patel, PT 08/21/2020 3:20:20 PM [facility] PATIENT NAME: ANDRE BLANCA [facility] Dr. Andrea MEDICAL REC #: [id number] [place] [address] ADMIT DATE: 07/27/20 SERVICE DATE: 08/21/20 Physical Therapy Progress Note ATTENDING PHY: Marta Horvath DO Normal [facility] [place] GLUCOSE METERon 08-20-2020 Glucose [Mass/Vol] 119 mg/dL Normal 85-125 [facility] [place] Glucose [Mass/Vol] 103 mg/dL Normal 85-125 [facility] [place] Glucose [Mass/Vol] 154 mg/dL High 85-125 [facility] Glucose [Mass/Vol] 150 mg/dL High 85-125 [facility] [place] OTPNon 08-20-2020 OT Progress Note Normal [facility] OTPN Occupational Therapy Inpatient Treatment Note Medical Diagnosis: Acute hypoxemic respiratory failure, Syncope, pneumonia, hypothyroidism OCCUPATIONAL PROFILE AND HISTORY Demographics: Age: 70Y Gender: Female Primary Language: Rwandan Preferred Language: Rwandan Referring Service/Team: Medicine Rehabilitation Precautions/Restrictio ns: 4L via NC, puree / nectar diet Patient Report: IM SORKAREN, I WENT IN MY PANTS Patient/Caregiver Goals: None stated Pain: Patient currently [...] and G-Code Modifier = CK Functional Mobility: [facility] PATIENT NAME: ANDRE BLANCA [facility] Dr. Andrea MEDICAL REC #: [id number] [place] [address] ADMIT DATE: 07/27/20 SERVICE DATE: 08/20/20 Occupational [...] treatment goal(s): 5x a wk until d/c [facility] PATIENT NAME: ANDRE BLANCA [address] MEDICAL REC #: [id number] [place] [address] ADMIT DATE: 07/27/20 SERVICE DATE: 08/20/20 Occupational [...] contact the Acute Therapy Department at extension [phone] Communication to Nursing: No updates at this time. Location of Patient at End of Therapy Session: In chair, chair alarm in place, call light within reach Services: Total Billed: 39 minutes (Timed: 39, Untimed: 0) 24.00 Timed: [95685] ADL-HOME MANAGEMENT EA 15 MIN 15.00 Timed: [76970] THER ACTIVITIES / 15 MIN 0.00 Untimed: [] OT Treatment General ORDER Signed by: SIMONA LLAMAS/Asuncion 08/20/2020 11:31:01 - CoSigned By: ANNIE MEZA/Asuncion 08/20/2020 12:57:10 PM [facility] PATIENT NAME: ANDRE BLANCA [address] MEDICAL REC #: [id number] [place] [address] ADMIT DATE: 07/27/20 SERVICE DATE: 08/20/20 Occupational Therapy Progress Note ATTENDING PHY: Marta Horvath DO Normal [facility] PBNP TESTon 08-20-2020 Natriuretic peptide B (Bld) [Mass/Vol] 134 pg/mL Normal 0-450 [facility] Comment on above: Order Comment: Maciel joe: Ramiro Performed By: #### L 200.06592 #### [facility] [address] [place] [address] PROG IMSon 08-20-2020 PROG [facility] Patient Name: ANDRE BLANCA [address] [facility] [address] Date of : [address] [address] Unit Number: [id number] Progress Note-Hospitalist Patient Status: ADM IN Attending [...] Normal affect. Diagnostic Data: Lab 24hr (CBC/BMP Fishbone) 08/20/20 1157: SARS-CoV-2 [...] statin. 10. History of ischemic stroke On MonAug 19, 2020 ESTEVAN BAUER wrote Continue statin. Patient should be on aspirin for secondary stroke prevention. We will review medications. Statement of Attestation Continue weaning oxygen as tolerated. Patient is currently on 3 L nasal cannula. Awaiting approval to be discharged to [facility] facility for rehab. I confirm that I have evaluated the patient, reviewed the history and physical, medications, diagnostic results, physical exam, assessment and plan of care of the patient. Disclaimer This dictation was created using voice recognition software. Phonetic and/or minor grammatical errors may exist. eSign Date and Time Estevan Bauer DO Verified/Reviewed by 08/20/20 1427 [facility] Progress Note-Hospitalist [facility] PROG.PULMon [facility]-20-2020 [facility] Name: ANDRE [address]CA[address] Date of : [address] [place] [id number] Unit Number: [id number] Progress Note-Pulmonology Patient Status: ADM IN Attending [...] 08/20 699 B/P Mean 79 08/18 0607 IandO 24 Hour Summary 08/20 0000 [...] 08/18 09 AC 08/20 (PLAVIX TAB) PO 0913 Enoxaparin [...] 08/04 for worsening hypoxemia and transfer to [facility] on 08/18. ASSESSMENT: - Acute Hypoxemic and [...] Loera with patient's son on 08/11. - [place] [facility]CC[facility] will sign off. Please reconsult if needed. Disclaimer This dictation was created using voice recognition software. Phonetic and/or minor grammatical errors may exist. eSign Date and Time Marge Beckman DO Verified/Reviewed by 08/20/20 1303 [facility] Progress Note-Pulmonology [facility] PTPNon 08-20-2020 PT Progress Note [facility] PTPN Physical Therapy Inpatient Treatment Note Medical Diagnosis: 1. Acute hypoxemia respiratory failure 2. Syncope 3. Hypothyroidism multiple rib fxs Demographics: Age: 70Y Gender: Female Primary Language: Rwandan Preferred Language: Rwandan Rehabilitation Precautions/Restrictio ns: 4L via NC, puree / nectar diet SUBJECTIVE Patient Report: I'm sitting here. Everything (when asked if in any pain and what hurts) Patient/Caregiver Goals: None stated Pain: Patient unable [...] Bed to Chair: A little help needed [facility] PATIENT NAME: ANDRE BLANCA [facility] Dr[address] Andrea MEDICAL REC #: [id number] [place] [address] ADMIT DATE: 07/27/20 SERVICE DATE: 08/20/20 Physical [...] contact the Acute Therapy Department at extension [phone] [facility] PATIENT NAME: ANDRE BLANCA [facility] Dr[address] Andrea MEDICAL REC #: [id number] [place] [address] ADMIT DATE: 07/27/20 SERVICE DATE: 08/20/20 Physical Therapy Progress Note ATTENDING DAMIAN: Marta Horvath DO Location of Patient at End of Therapy Session: In chair, chair alarm in place, call light within reach Services: Total Billed: 24 minutes (Timed: 24, Untimed: 0) 24.00 Timed: [95428] THER ACTIVITIES / 15 MIN 0.00 Untimed: [] PT Treatment- General ORDER Signed by: RENALDO BENAVIDES, 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 08/20/2020 13:52:13 - CoSigned By: SINDHU MONTANEZ, PT 08/20/2020 4:07:52 PM [facility] PATIENT NAME: [facility] [address] Andrea MEDICAL REC #: [id number] [place] [address] ADMIT DATE: 07/27/20 SERVICE DATE: 08/20/20 Physical Therapy Progress Note ATTENDING PHY: Marta Horvath DO Normal [facility] [id number] 08-20-2020 SARS-CoV-2 Negative Normal Negative [facility] Comment on above: Order Comment: Maciel [...] BY KEYON HENNESSY Performed By: #### M 150.64862, M150.49496 #### [facility] [address] [place] [address] ABGPon 08-19-2020 ABG BE 10.6 MML/L High -2.0-2.0 [facility] Comment on above: Order Comment: Maciel s: M Performed By: #### L 200.57671 #### [facility] [address] [place] [address] ABG COHBA 0.3 % Normal 0-10 [facility] Comment on above: Order Comment: Campu s: M Performed By: #### L 200.38117 #### [facility] [address] [facility] [place] [address] ABG HCO3 37.1 MMOL/L High 22-26 [facility] Comment on above: Order Comment: Campu s: M Performed By: #### L 200.34193 #### [facility] [address] [facility] [place] [address] ABG MET 0.3 % Low 0.4-1.5 [facility] Comment on above: Order Comment: Campu s: M Performed By: #### L 200.93401 #### [facility] [place] [address] ABG O2 CAPACITY 12.4 mL/dL Normal [facility] Comment on above: Order Comment: Campu s: M Performed By: #### L 200.96345 #### [facility] [address] [facility] [place] [address] ABG O2 CONTENT 12.0 mL/dL Low 15.7-21.6 [facility] Comment on above: Order Comment: Campu s: M Performed By: #### L 200.62080 #### [facility] [facility] [place] [address] ABG O2HB SAT 93.8 % Normal 90-100 [facility] Comment on above: Order Comment: Campu s: M Performed By: #### L 200.79693 #### [facility] [address] [place] [address] ABG PCO2 61.9 MMHG Critically high 35-45 [facility] Comment on above: Order Comment: Campu s: M Result Comment: CRIT ICAL VALUE(S) VERIFIED AND HAND DELIVERED TO AND READ BACK BY GEE DALTON AT 0047 08/19/20 BY LORENA CRABTREE Performed By: #### L 200.51755 #### [facility] [address] [place] [address] ABG PH 7.40 Normal 7.35-7.45 [facility] Comment on above: Order Comment: Campu s: M Performed By: #### L 200.41694 #### [facility] [address] [place] [address] ABG PO2 78 MMHG Low 80-100 [facility] Comment on above: Order Comment: Campu s: M Performed By: #### L 200.77905 #### [facility] [address] [place] [address] DOUG TEST Positive Normal [facility] Comment on above: Order Comment: Campu s: M Performed By: #### L 200.34591 #### [facility] [address] [place] [address] aPTT Coag (Bld) [Time] 37.0 C Normal [facility] Comment on above: Order Comment: Campu s: M Performed By: #### L 200.71691 #### [facility] [address] [place] [address] EQUIPMENT NASAL CANNULA Normal [facility] Comment on above: Order Comment: Campu s: M Performed By: #### L 200.45264 #### [facility] [address] [place], [place] [address] Hemoglobin (Bld) [Mass/Vol] 9.0 g/dL Low 10-16 [facility] Comment on above: Order Comment: Campu s: M Performed By: #### L 200.52523 #### [facility] [address] [place] [address] Hemoglobin (Bld) [Mass/Vol] 5.6 % High 0-5 [facility] Comment on above: Order Comment: Campu s: M Performed By: #### L 200.75375 #### [facility] [address] [place] [address] [place] [address] LITERFLOW 5.00 L/M Normal [facility] Comment on above: Order Comment: Campu s: M Performed By: #### L 200.78395 #### [facility] [address] [facility] [place] [address] Oxygen saturation in Blood 95 % Normal [facility] Comment on above: Order Comment: Campu s: M Performed By: #### L 200.00707 #### [facility] [address] [facility] [place] [address] SAMPLE SITE L RADIAL Normal [facility] Comment on above: Order Comment: Campu s: M Performed By: #### L .06236 #### [facility] [address] [facility] [place] [address] SAMPLE TYPE ARTERIAL Normal [facility] Comment on above: Order Comment: Campu s: M Performed By: #### L 200.66517 #### [facility] [address] [place] [address] BMPon 08-19-2020 Anion gap [Moles/Vol] 3 mmol/L Low 5-16 [facility] Comment on above: Order Comment: Campu s: M Performed By: #### L 500.24706, L500.07856, L500.95994, L500.68820 ####[facility] [id number] [place], [place] [address]Xs# [phone] Calcium [Mass/Vol] 8.5 mg/dL Normal 8.5-10.5 [facility] Comment on above: Order Comment: Campu s: M Result Comment: NOTE NEW NORMAL RANGE DUE TO REAGENT CHANGE Performed By: #### L 500.55750, L500.13667, L500.12826, L500.08498 ####[facility] [id number] [place], [place] [address]Cj# [phone] Chloride [Moles/Vol] 100 mmol/L Normal 98-107 [facility] Comment on above: Order Comment: Abundiou s: M Performed By: #### L 500.08365, L500.05424, L500.91147, L500.74768 ####[facility] [id number] [place], [place] [address]Rs# [phone] CO2 [Moles/Vol] 37.0 mmol/L High 21-32 [facility] Comment on above: Order Comment: Campu s: M Performed By: #### L 500.58198, L500.72622, L500.73570, L500.61223 ####[facility] [id number] [place], [place] [address]Bh# [phone] Creatinine [Mass/Vol] 0.66 mg/dL Normal 0.510-0.950 [facility] Comment on above: Order Comment: Abundiou s: M Result Comment: Geraldine ents receiving either N-Acetylcysteine (NAC) or Metamizole prior to venipuncture, may have falsely depressed results. Performed By: #### L 500.34033, L500.61289, L500.56373, L500.76436 ####[facility] [id number] [place], [place] [address]Rp# [phone] Glucose [Mass/Vol] 148 mg/dL High 70-100 [facility] Comment on above: Order Comment: Abundiou s: M Result Comment: 70-1 00- Normal Fasting; 100-125 Impaired Fasting; greater than 126 on more than one result- Diabetes. ADA guidelines. Results may be falsely elevated after the administration of Sulfapyridine. Results may be falsely depressed after the administration of Sulfasalazine. Performed By: #### L 500.99320, L500.18410, L500.56721, L500.31062 ####[facility] [id number] [place], [place] [address]Ml# [phone] Potassium [Moles/Vol] 4.0 mmol/L Normal 3.5-5.1 [facility] Comment on above: Order Comment: Abundiou s: M Result Comment: Slig ht Hemolysis, Result may be affected. Performed By: #### L 500.66646, L500.47305, L500.45589, L500.71948 ####[facility] [id number] [place], [place] [address]Kg# [phone] Sodium [Moles/Vol] 140 mmol/L Normal 136-145 [facility] Comment on above: Order Comment: Campu s: M Performed By: #### L 500.61482, L500.95184, L500.03428, L500.56377 ####[facility] [id number] [place], [place] [address]Pe# [phone] Urea nitrogen [Mass/Vol] 8 mg/dL Normal 7-26 [facility] Comment on above: Order Comment: Campu s: M Performed By: #### L 500.28247, L500.75294, L500.31268, L500.08232 ####[facility] [id number] [place] [address]Ly# [phone] Urea nitrogen/Creatinine [Mass ratio] 12 mg/mg Low 15-24 [facility] Comment on above: Order Comment: Campu s: M Performed By: #### L 500.43053, L500.27304, L500.47138, L500.65319 ####[facility] [id number] [place], [place] [address]Vk# [phone] CBC W/DIFFon 08-19-2020 BASO ABS 0.10 K/CU MM Normal 0-0.2 [facility] Comment on above: Order Comment: Campu s: M Performed By: #### L 200.85186 ####[facility] [id number] [place] [address]Iy# [phone] Basophils/100 WBC (Bld) 1.2 % Normal 0-[address] [facility] Comment on above: Order Comment: Campu s: M Performed By: #### L 200.94262 ####[facility] [id number] [place] [address]Tn# [phone] EOS ABS 0.30 K/CU MM Normal 0-0.5 [facility] [place] Comment on above: Order Comment: Campu s: M Performed By: #### L 200.74534 ####[facility] [id number] [place], [place] [address]Un# [phone] Eosinophils/100 WBC (Bld) 4.4 % Normal 0-5 [facility] [place] Comment on above: Order Comment: Campu s: M Performed By: #### L 200.59092 ####[address] [address]Wo# [phone] Erythrocyte distribution width (RBC) [Ratio] 15.9 % High 11-14.5 [facility] Comment on above: Order Comment: Campu s: M Performed By: #### L 200.19483 ####[address] [address]Bw# [phone] Hematocrit (Bld) [Volume fraction] 26.9 % Low 35.0-47.0 [facility] [place] Comment on above: Order Comment: Campu s: M Performed By: #### L 200.70455 ####[address] [address]Wm# [phone] Hemoglobin (Bld) [Mass/Vol] 8.0 g/dL Low 11.5-15.5 [facility] [place] Comment on above: Order Comment: Campu s: M Performed By: #### L 200.07840 ####[facility] [id number] [place] [address]Ng# [phone] IMMATR GRAN ABS 0.10 K/CU MM Normal Less than 2 [facility] [place] Comment on above: Order Comment: Campu s: M Performed By: #### L 200.99343 ####[facility] [id number] [place] [address]Lo# [phone] IMMATURE GRAN % 0.8 % Normal Less than 2 [facility] [place] Comment on above: Order Comment: Campu s: M Performed By: #### L 200.28057 ####[facility] [id number] [place], [place] [address]Bq# [phone] Lymphocytes (Bld) [#/Vol] 1.50 K/CU MM Normal 0.9-4.4 [facility] Comment on above: Order Comment: Campu s: M Performed By: #### L 200.03512 ####[facility] [id number] [place] [address]Su# [phone] Lymphocytes/100 WBC (Bld) 23.1 % Normal 20-40 [facility] Comment on above: Order Comment: Campu s: M Performed By: #### L 200.79267 ####[address] [address]Ce# [phone] MCHC (RBC) [Mass/Vol] 29.7 g/dL Low 32.0-36.0 [facility] Comment on above: Order Comment: Campu s: M Performed By: #### L 200.13284 ####[facility] [id number] [place] [address]Pn# [phone] MCV (RBC) [Entitic vol] 98.2 fL Normal 80.0-99.0 [facility] Comment on above: Order Comment: Campu s: M Performed By: #### L 200.20586 ####[facility] [id number] [place] [address]Ar# [phone] MONO ABS 0.50 K/CU MM Normal 0.1-1.1 [facility] Comment on above: Order Comment: Campu s: M Performed By: #### L 200.90514 ####[address] [address]Rp# [phone] Monocytes/100 WBC (Bld) 7.8 % Normal 2-[address] [facility] Comment on above: Order Comment: Campu s: M Performed By: #### L 200.92448 ####[facility] [id number] [place] [address]Iy# [phone] NEUTROPHIL ABS 4.10 K/CU MM Normal 2.0-8.3 [facility] Comment on above: Order Comment: Campu s: M Performed By: #### L 200.73533 ####[facility] [id number] [place], [place] [address]Jg# [phone] Neutrophils/100 WBC (Bld) 62.7 % Normal 45-75 [facility] Comment on above: Order Comment: Campu s: M Performed By: #### L 200.01162 ####[facility] [id number] [place], [place] [address]Fg# [phone] Nucleated RBC/100 WBC (Bld) [Ratio] 0.0 % Normal Less than 1 [facility] Comment on above: Order Comment: Campu s: M Performed By: #### L 200.54838 ####[place] [address]Ph# [phone] Platelet mean volume (Bld) [Entitic vol] 10.2 fL Normal 9.4-12.4 [facility] Comment on above: Order Comment: Campu s: M Performed By: #### L 200.71198 ####[facility] [id number] [place], [place] [address]Mp# [phone] Platelets (Bld) [#/Vol] 425 K/CU MM Normal 150-450 [facility] Comment on above: Order Comment: Campu s: M Performed By: #### L 200.14837 ####[facility] [id number] [place] [address]Ub# [phone] RBC (Bld) [#/Vol] 2.74 M/CU MM Low 3.90-5.30 [facility] Comment on above: Order Comment: Campu s: M Performed By: #### L 200.07244 ####[facility] [id number] [place] [address]Vv# [phone] WBC (Bld) [#/Vol] 6.6 K/CUMM Normal 4.5-11.0 [facility] [place] Comment on above: Order Comment: Campu s: M Performed By: #### L 200.36941 ####[facility] [id number] [place], [place] [address]Yb# [phone] GFR ESTon 08-19-2020 IF AMER Greater than 60 Normal [facility] Comment [facility] above: Order Comment: Campu s: M Performed By: #### L 500.63197, L500.88196, L500.59654, L500.20701 ####[facility] [id number] [place], [place] [address]No# [phone] IF non-AFR AMER Greater than 60 Normal [facility] Comment on above: Order Comment: Campu s: M Performed By: #### L 500.53681, L500.84200, L500.49981, L500.66663 ####[facility] [id number] [place], [place] [address]Qb# [phone] GLUCOSE METERon 08-19-2020 Glucose [Mass/Vol] 149 mg/dL High 85-125 [facility] [place] Glucose [Mass/Vol] 121 mg/dL Normal 85-125 [facility] [place] Glucose [Mass/Vol] 118 mg/dL Normal 85-125 [facility] [place] Glucose [Mass/Vol] 155 mg/dL High 85-125 [facility] [place] Glucose [Mass/Vol] 115 mg/dL Normal 85-125 [facility] [place] Glucose [Mass/Vol] 149 mg/dL High 85-125 [facility] [place] MAGNESIUMon 08-19-2020 Magnesium [Mass/Vol] 1.9 MG/CL Normal 1.6-2.6 [facility] Comment on above: Order Comment: Campu s: M Performed By: #### L 500.08122, L500.86452, L500.43992, L500.44285 ####[facility] [id number] [place], [place] [address]Ww# [phone] OTPNon 08-19-2020 OT Progress Note Normal [facility] [place] OTPN Occupational Therapy Inpatient Treatment Note Medical Diagnosis: Acute hypoxemic respiratory failure, Syncope, pneumonia, hypothyroidism OCCUPATIONAL PROFILE AND HISTORY Demographics: Age: 70Y Gender: Female Primary Language: Rwandan Preferred Language: Rwandan Referring Service/Team: Medicine Rehabilitation Precautions/Restrictio ns: 4L via NC, puree / nectar diet Patient Report: IM HUNGRY. Patient/Caregiver Goals: Can I have some ice? Pain: Patient currently without complaints of pain. [...] and G-Code Modifier = CK Functional Mobility: [facility] PATIENT NAME: ANDRE BLANCA [facility] Dr. Andrea MEDICAL REC #: [id number] [place] [address] ADMIT DATE: 07/27/20 SERVICE DATE: 08/19/20 Occupational [...] care discharge, the following is currently recommended: [facility] PATIENT NAME: ANDRE BLANCA [facility] Dr. Andrea MEDICAL REC #: [id number] [place] [address] ADMIT DATE: 07/27/20 SERVICE DATE: 08/19/20 Occupational Therapy Progress Note ATTENDING PHY: Marta Horvath DO Inpatient Occupational Therapy, LESS THAN 60 minutes per day. Equipment Recommended: TBD Recommended Consults: None currently. Development of Plan of Care: Patient participated in plan of care development today. If there are any questions regarding this service, please contact the Acute Therapy Department at extension [phone] Communication to Nursing: No updates at this time. Location of Patient at End of Therapy Session: In chair, call light within reach telesitter Services: Total Billed: 23 minutes (Timed: 23, Untimed: 0) 23.00 Timed: [46874] ADL-HOME MANAGEMENT EA 15 MIN 0.00 Untimed: [] OT Treatment General ORDER Signed by: ROSEANNA LLAMAS 08/19/2020 11:57:19 - CoSigned By: Cayla Rios OT 08/19/2020 3:53:45 PM [facility] PATIENT NAME: ANDRE BLANCA [facility] Dr. Andrea MEDICAL REC #: [id number] [place] [address] ADMIT DATE: 07/27/20 SERVICE DATE: 08/19/20 Occupational Therapy Progress Note ATTENDING PHY: Marta Horvath DO Normal [facility] PBNPon 08-19-2020 Natriuretic peptide B (Bld) [Mass/Vol] 134 pg/mL Normal 0-900 [facility] ([place]) Comment on above: Result Comment: NT-p roBNP results of less than 300 pg/mL effectively rules out acute congestive heart failure with 99% negative predictive value. Performed By: #### P BNP #### [facility] [address] [place] [address] PHOSon 08-19-2020 Phosphate [Mass/Vol] 4.40 mg/dL Normal 2.5-4.9 [facility] Comment on above: Order Comment: Maciel s: M Result Comment: Elev ated m-protein (paraprotein) levels in the serum may be exhibited in patients with monoclonal gammopathies, causing falsely elevated inorganic phosphorus results. Performed By: #### L 500.25382, L500.83262, L500.06614, L500.07681 ####[facility] [id number] [place], [place] [address]Tv# [phone] PROG [facility] 08-19-2020 PROG [facility] Patient Name: ANDRE BLANCA [address] [facility] Date of : [address] [place], [place] [address] Unit Number: [id number] Progress Note-Hospitalist Patient Status: ADM IN Attending [...] Resp 24 08/19 1115 B/P Mean 79 05 0607 Physical Exam Physical Examination Notes General: [...] Normal affect. Diagnostic Data: Lab 24hr (CBC/BMP Fishbone) 08/19/20 1158: Whole Bld Glucose 118 08/19/20 0755: Whole Bld Glucose 155 H 08/19/20 0516: Twm-W-Anhcntrserf Pept Pending 08/19/20 0516: [Embedded Image Not [...] time. Disposition according to case management is [facility]. I confirm that I have evaluated the patient, reviewed the history and physical, medications, diagnostic results, physical exam, assessment and plan of care of the patient. Disclaimer This dictation was created using voice recognition software. Phonetic and/or minor grammatical errors may exist. eSign Date and Time Estevan Bauer DO Verified/Reviewed by 08/19/20 1409 [facility] Progress Note-Hospitalist [facility] G [facility] Patient Name: ANDRE BLANCA [address] Date of : [address] [place], [place] [address] Unit Number: [id number] Progress Note-Hospitalist Patient Status: ADM IN Attending [...] eSign Date and Time Estevan Bauer DO Normal [facility] Progress Note-Hospitalist Normal [facility] PROG.PSYCHon 08-19-2020 PROG.PSYCH [facility] Patient Name: ANDRE BLANCA [address] Date of : [address] [place], [place] [address] Unit Number: [id number] Progress Note-Psych Patient Status: DIS IN Attending Doctor: Marta Horvath DO Service Date: 08/19/20812 Progress Note - PSYCH Subjective: (2 ROS [...] 08/17 1330 AC 08/18 (TEGRETOL TAB.CHEW) PO 181 Clopidogrel Bisulfate 75 MG QDAY 08/18 0900 [...] Milind Gates MD Verified/Reviewed by 08/24/20 0743 [facility] [place] Progress Note-Psych Normal [facility] PROG.PULMon 08-19-2020 PROG.PULM [facility] Patient Name: ANDRE BLANCA [address] Date of : [address] [place] [address] Unit Number: [id number] Progress Note-Pulmonology Patient Status: ADM IN Attending [...] 08/17 2199 AC 08/18 (PRAVACHOL TAB) PO 215 Pregabalin 150 MG BID 08/17 2099 AC 08/18 (LYRICA CAP) PO 2152 Quetiapine Fumarate 100 MG QHS 08/08 2200 AC 08/18 (SEROQUEL TAB) TUBE 215 Risperidone 3 MG BID 08/17 2100 AC [...] 538 Lab Results: Lab 24hr (CBC/BMP Fishbone) 08/19/20 0755: Whole Bld Glucose 155 H 08/19/20 0516: Dzb-E-Yzhebpltlan Pept Pending 08/19/20 0516: [Embedded Image Not [...] 08/04 for worsening hypoxemia and transfer to [facility] on 08/18. ASSESSMENT: - Acute Hypoxemic and [...] ATTESTATION: Patient individually seen/examined. Agree with the CLOSING MANAGER's notes, assessment and plan. My evaluation and treatment plan is reflected by the addendum in the above note. Collaborating Physician: Marge Beckman DO Disclaimer This dictation was created using voice recognition software. Phonetic and/or minor grammatical errors may exist. eSign Date and Time Marge Beckman DO Verified/Reviewed by 08/19/20 1343 Yamileth Corbin CNP [facility] Progress Note-Pulmonology [facility] PTPN 08-19-2020 PT Progress Note [facility] PTPN Physical Therapy Inpatient Treatment Note Medical Diagnosis: 1. Acute hypoxemia respiratory failure 2. Syncope 3. Hypothyroidism multiple rib fx Demographics: Age: 70Y Gender: Female Primary Language: Rwandan Preferred Language: Rwandan Rehabilitation Precautions/Restrictio ns: 4L via NC, puree [...] = 39.45 and G-Code Modifier = CK [facility] PATIENT NAME: ANDRE BLANCA [address] [facility] [address] Andrea MEDICAL REC #: [id number] [place] [address] ADMIT DATE: 07/27/20 SERVICE DATE: 08/19/20 Physical [...] contact the Acute Therapy Department at extension [phone] Location of Patient at End of Therapy Session: In chair, chair alarm in place, call light within reach Tele sitter on [facility] PATIENT NAME: ANDRE BLANCA Traci [place] MEDICAL REC #: [id number] [place] [address] ADMIT DATE: 07/27/20 SERVICE DATE: 08/19/20 Physical Therapy Progress Note ATTENDING PHY: Marta Horvath DO Services: Total Billed: 24 minutes (Timed: 24, Untimed: 0) 24.00 Timed: [78969] THER ACTIVITIES / 15 MIN 0.00 Untimed: [] PT Treatment- General ORDER Signed by: RENALDO BENAVIDES, 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 08/19/2020 15:25:26 - CoSigned By: Kiki Cheung, PT 08/19/2020 3:39:16 PM [facility] PATIENT NAME: ANDRE BLANCA Traci [place] MEDICAL REC #: [id number] [place] [address] ADMIT DATE: 07/27/20 SERVICE DATE: 08/19/20 Physical Therapy Progress Note ATTENDING PHY: Marta Horvath DO Normal [facility] 08-18-2020 Anion gap [Moles/Vol] 3 mmol/L Low 5-16 [facility] [place] Comment on above: Order Comment: Campu s: M Performed By: #### L 500.39872, L500.54587, L500.56866, L500.31482 ####[facility] [id number] [place], [place] [address]Pl# [phone] Calcium [Mass/Vol] 8.7 mg/dL Normal 8.5-10.5 [facility] Comment on above: Order Comment: Campu s: M Result Comment: NOTE NEW NORMAL RANGE DUE TO REAGENT CHANGE Performed By: #### L 500.71466, L500.90269, L500.69874, L500.30469 ####[facility] [id number] [place], [place] [address]Ga# [phone] Chloride [Moles/Vol] 98 mmol/L Normal 98-107 [facility] Comment on above: Order Comment: Campu s: M Performed By: #### L 500.85608, L500.89384, L500.78740, L500.59870 ####[facility] [id number] [place], [place] [address]Gn# [phone] CO2 [Moles/Vol] 40.0 mmol/L High 21-32 [facility] Comment on above: Order Comment: Campu s: M Performed By: #### L 500.51297, L500.06428, L500.82699, L500.47501 ####[facility] [id number] [place], [place] [address]Rj# [phone] Creatinine [Mass/Vol] 0.58 mg/dL Normal 0.510-0.950 [facility] [place] Comment on above: Order Comment: Campu s: M Result Comment: Geraldine ents receiving either N-Acetylcysteine (NAC) or Metamizole prior to venipuncture, may have falsely depressed results. Performed By: #### L 500.43159, L500.84542, L500.50619, L500.38508 ####[facility] [id number] [place] [address]Wf# [phone] Glucose [Mass/Vol] 146 mg/dL High 70-100 [facility] Comment on above: Order Comment: Campu s: M Result Comment: 70-1 00- Normal Fasting; 100-125 Impaired Fasting; greater than 126 on more than one result- Diabetes. ADA guidelines. Results may be falsely elevated after the administration of Sulfapyridine. Results may be falsely depressed after the administration of Sulfasalazine. Performed By: #### L 500.58082, L500.81096, L500.41326, L500.35974 ####[facility] [id number] [place] [address]Uz# [phone] Potassium [Moles/Vol] 3.9 mmol/L Normal 3.5-5.1 [facility] [place] Comment on above: Order Comment: Campu s: M Performed By: #### L 500.34195, L500.85810, L500.48894, L500.60787 ####[facility] [id number] [place] [address]Oe# [phone] Sodium [Moles/Vol] 139 mmol/L Normal 136-145 [facility] Comment on above: Order Comment: Campu s: M Performed By: #### L 500.33564, L500.25875, L500.82797, L500.43290 ####[facility] [id number] [place] [address]Uk# [phone] Urea nitrogen [Mass/Vol] 9 mg/dL Normal 7-26 [facility] Comment on above: Order Comment: Campu s: M Performed By: #### L 500.61521, L500.76584, L500.87885, L500.77290 ####[facility] [id number] [place] [address]Ap# [phone] Urea nitrogen/Creatinine [Mass ratio] 15 mg/mg Normal 15-24 [facility] Comment on above: Order Comment: Campu s: M Performed By: #### L 500.84275, L500.41878, L500.50195, L500.85121 ####[facility] [id number] [place], [place] [address]Vb# [phone] CBC W/DIFFon 08-18-2020 BASO ABS 0.10 K/CU MM Normal 0-0.2 [facility] Comment on above: Order Comment: Campu s: M Performed By: #### L 200.14893 ####[facility] [id number] [place], [place] [address]Ph# [phone] Basophils/100 WBC (Bld) 0.8 % Normal 0-[address] [facility] Comment on above: Order Comment: Campu s: M Performed By: #### L 200.17663 ####[address] [address]Jv# [phone] EOS ABS 0.30 K/CU MM Normal 0-0.5 [facility] Comment on above: Order Comment: Campu s: M Performed By: #### L 200.81666 ####[facility] [id number] [place] [address]Pz# [phone] Eosinophils/100 WBC (Bld) 3.7 % Normal 0-5 [facility] Comment on above: Order Comment: Campu s: M Performed By: #### L 200.82448 ####[facility] [id number] [place] [address]Xs# [phone] Erythrocyte distribution width (RBC) [Ratio] 15.7 % High 11-14.5 [facility] Comment on above: Order Comment: Campu s: M Performed By: #### L 200.24903 ####[facility] [id number] [place] [address]Kw# [phone] Hematocrit (Bld) [Volume fraction] 25.6 % Low 35.0-47.0 [facility] Comment on above: Order Comment: Campu s: M Performed By: #### L 200.14632 ####[facility] [id number] [place] [address]Dg# [phone] Hemoglobin (Bld) [Mass/Vol] 7.8 g/dL Low 11.5-15.5 [facility] [place] Comment on above: Order Comment: Campu s: M Performed By: #### L 200.15766 ####[facility] [id number] [place], [place] [address]Qn# [phone] IMMATR GRAN ABS 0.10 K/CU MM Normal Less than 2 [facility] [place] Comment on above: Order Comment: Campu s: M Performed By: #### L 200.21517 ####[place] [address]Ph# [phone] IMMATURE GRAN % 1.0 % Normal Less than 2 [facility] [place] Comment on above: Order Comment: Campu s: M Performed By: #### L 200.24900 ####[place] [address]Ph# [phone] Lymphocytes (Bld) [#/Vol] 1.30 K/CU MM Normal 0.9-4.4 [facility] [place] Comment on above: Order Comment: Campu s: M Performed By: #### L 200.98053 ####[facility] [id number] [place], [place] [address]Ph# [phone] Lymphocytes/100 WBC (Bld) 16.8 % Low 20-40 [facility] Comment on above: Order Comment: Campu s: M Performed By: #### L 200.87362 ####[facility] [id number] [place], [place] [address]Ph# [phone] MCHC (RBC) [Mass/Vol] 30.5 g/dL Low 32.0-36.0 [facility] [place] Comment on above: Order Comment: Campu s: M Performed By: #### L 200.27836 ####[facility] [id number] [place], [place] [address]Ph# [phone] MCV (RBC) [Entitic vol] 95.9 fL Normal 80.0-99.0 [facility] [place] Comment on above: Order Comment: Campu s: M Performed By: #### L 200.39917 ####[facility] [id number] [place], [place] [address]Xd# [phone] MONO ABS 0.60 K/CU MM Normal 0.1-1.1 [facility] Comment on above: Order Comment: Campu s: M Performed By: #### L 200.87036 ####[facility] [id number] [place], [place] [address]Ph# [phone] Monocytes/100 WBC (Bld) 7.5 % Normal 2-[address] [facility] Comment on above: Order Comment: Campu s: M Performed By: #### L 200.20049 ####[address] [address]Sr# [phone] NEUTROPHIL ABS 5.50 K/CU MM Normal 2.0-8.3 [facility] Comment on above: Order Comment: Campu s: M Performed By: #### L 200.04772 ####[facility] [id number] [place] [address]Mf# [phone] Neutrophils/100 WBC (Bld) 70.2 % Normal 45-75 [facility] Comment on above: Order Comment: Campu s: M Performed By: #### L 200.44424 ####[facility] [id number] [place] [address]Uy# [phone] Nucleated RBC/100 WBC (Bld) [Ratio] 0.0 % Normal Less than 1 [facility] Comment on above: Order Comment: Campu s: M Performed By: #### L 200.34548 ####[facility] [id number] [place] [address]Go# [phone] Platelet mean volume (Bld) [Entitic vol] 10.5 fL Normal 9.4-12.4 [facility] Comment on above: Order Comment: Campu s: M Performed By: #### L 200.49193 ####[facility] [id number] [place], [place] [address]Ej# [phone] Platelets (Bld) [#/Vol] 394 K/CU MM Normal 150-450 [facility] Comment on above: Order Comment: Campu s: M Performed By: #### L 200.09781 ####[facility] [id number] [place], [place] [address]Wv# [phone] RBC (Bld) [#/Vol] 2.67 M/CU MM Low 3.90-5.30 [facility] Comment on above: Order Comment: Campu s: M Performed By: #### L 200.48857 ####[facility] [id number] [place], [place] [address]Tm# [phone] WBC (Bld) [#/Vol] 7.9 K/CUMM Normal 4.5-11.0 [facility] Comment on above: Order Comment: Campu s: M Performed By: #### L 200.18109 ####[facility] [id number] [place], [place] [address]Cy# [phone] DIET.[facility] 08-18-[address] Patient Name: ANDRE BLANCA [address] [facility] [address] Date of : [address] [place] [address] Unit Number: [id number] Nutrition Assessments Patient Status: ADM IN Attending [...] day, 17 calories/kg current weight determined using [place] x 1.1. Current Estimated Protein Needs 104 [...] 08/08/20: Pt was following a regular diet 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 and was not using any oral nutrition [...] 235.7# Weight this admission ranged: 226.6-235.7# Per [facility] Weight History: 02/2019: 223.6-234.5# BMI Criteria: >/= 40 Morbidly Obese Weight Changes: 1-2% in 1 week (1.7% loss x 1 week ) Minutes of Medical Nutrition Therapy: 30 Minutes Disclaimer This dictation was created using voice recognition software. Phonetic and/or minor grammatical errors may exist. eSign Date and Time Stefanie Lopez Verified/Reviewed by 08/18/20 1300 Normal [facility] Assessments [facility] 08-18-2020 IF AMER Greater than 60 Normal [facility] Comment on above: Order Comment: Maciel Rubio Minimal Draw: Y Performed By: #### L 500.62194, L500.49116 #### [facility] [address] [place] [address] IF non-AFR AMER Greater than 60 [facility] Comment on above: Order Comment: Maciel Rubio Minimal Draw: Y Performed By: #### L 500.47687, L500.13416 #### [facility] LABORATORY [address] [place] [address] GLUCOSE METERon 08-18-2020 Glucose [Mass/Vol] 93 mg/dL Normal 85-125 [facility] Glucose [Mass/Vol] 98 mg/dL Normal 85-125 [facility] Glucose [Mass/Vol] 131 mg/dL High 85-125 [facility] Glucose [Mass/Vol] 120 mg/dL Normal 85-125 [facility] MAGNESIUMon 08-18-2020 Magnesium [Mass/Vol] 2.0 MG/CL Normal 1.6-2.6 [facility] Comment on above: Order Comment: Campu s: M Minimal Draw: Y Performed By: #### L 500.70051, L500.65003 #### [facility] LABORATORY [address] [place] [address] OTPNon 08-18-2020 OT Progress Note Normal [facility] OTPN Occupational Therapy Inpatient Treatment Note Medical Diagnosis: Acute hypoxemic respiratory failure, Syncope, pneumonia, hypothyroidism OCCUPATIONAL PROFILE AND HISTORY Demographics: Age: 70Y Gender: Female Primary Language: Rwandan Preferred Language: Rwandan Referring Service/Team: Cardiology Rehabilitation Precautions/Restrictio ns: , 2L via NC puree / nectar diet Patient Report: IM OK Patient/Caregiver Goals: I want something to eat. Pain: Patient currently without complaints of pain. [...] bed mobility including supine to sit, rolling, [facility] PATIENT NAME: ANDRE BLANCA [facility] Dr. Andrea MEDICAL REC #: [id number] [place] [address] ADMIT DATE: 07/27/20 SERVICE DATE: 08/18/20 Occupational [...] D/C Occupational Therapy treatment is to include: [facility] PATIENT NAME: ANDRE BLANCA [address] Andrea MEDICAL REC #: [id number] [place] [address] ADMIT DATE: 07/27/20 SERVICE DATE: 08/18/20 Occupational [...] contact the Acute Therapy Department at extension [phone] Communication to Nursing: No updates at this time. Location of Patient at End of Therapy Session: In chair, chair alarm in place, call light within reach Services: Total Billed: 39 minutes (Timed: 39, Untimed: 0) 24.00 Timed: [59255] ADL-HOME MANAGEMENT EA 15 MIN 15.00 Timed: [47263] THER ACTIVITIES / 15 MIN 0.00 Untimed: [] OT Treatment General ORDER Signed by: ROSEANNA LLAMAS 08/18/2020 11:13:06 - CoSigned By: KASEY MINAYA 08/18/2020 1:22:30 PM [facility] PATIENT NAME: ANDRE BLANCA Traci Andrea MEDICAL REC #: [id number] [place] [address] ADMIT DATE: 07/27/20 SERVICE DATE: 08/18/20 Occupational Therapy Progress Note ATTENDING PHY: Marta Horvath DO Normal [facility] 08-18-2020 Phosphate [Mass/Vol] 4.50 mg/dL Normal 2.5-4.9 [facility] Comment on above: Order Comment: Abundiou s: M Minimal Draw: Y Result Comment: Elev ated m-protein (paraprotein) levels in the serum may be exhibited in patients with monoclonal gammopathies, causing falsely elevated inorganic phosphorus results. Performed By: #### L 500.21989, L500.48876 #### [facility] LABORATORY [facility] [place] [address] PROG [facility] 08-18-2020 PROG [facility] Patient Name: ANDRE BLANCA [address] [facility] [address] Date of : [address] [address] Unit Number: [id number] Progress Note-Hospitalist Patient Status: ADM IN Attending Doctor: Marta Horvath DO Service Date: 08/18/201905 Chief Complaint Chief [...] medical floor to continue with her therapies. financial planner is consulted in the event that [...] Time Tila Guan MD Verified/Reviewed by 08/18/201937 [facility] Progress Note-Hospitalist [facility]: ANDRE BLANCA [address] Date of : [address] [address] Unit Number: [id number] Progress Note-Front Office Manager Patient Status: ADM IN Attending Doctor: Marta Horvath DO Service Date: 08/18/2046 Progress Note-Front Office Manager Subjective Subjective: Some confusion this morning, but goes in and out of her mentation with good lucid moments . Pulling on her kaiser and would like to get that removed. Objective Vital Signs: Vital Signs (Last) Result Date Time Pulse Ox 89 08/18 0607 B/P 115/56 08/18 06 B/P Mean 79 08/18 606 O2 Delivery NASAL CANNULA 08/18 606 O2 Flow Rate 4 08/18 606 Temp 97.8 08/18 606 Pulse 81 08/18 606 Resp 20 08/18 606 IandO 24 Hour Summary 08/18 0000 Intake [...] 08/09 0700 AC 08/18 (SYNTHROID TAB) PO 06 Loperamide HCl 2 MG PRN PRN 08/04 193 AC 08/17 (IMODIUM AD ORAL TUBE 0851 [...] 08/17 2100 AC 08/17 (RISPERDAL TAB) PO 1958 Sodium Chloride See Dose Q24H 08/06 0900 [...] 12.6 08/11 538 Doug Test Cancelled 08/16 0500 Sodium (136 - 148 mmol/L) 147 08/11 538 Potassium (3.5 - 5.0 MMOL/L) 3.2 L 08/11 538 Glucose (60 - 80 MG/DL) 174 H 08/11 538 Lactate Cancelled 08/16 0500 Patient Equipment Cancelled 08/16 0500 Liter Flow (L/M) 45.00 08/11 538 FiO2 [...] Marge Beckman DO Verified/Reviewed by 08/18/20 0902 [facility] Progress Note-Front Office Manager [facility] PTPNon 08-18-2020 PT Progress Note [facility] PTPN Physical Therapy Inpatient Treatment Note Medical Diagnosis: 1. Acute hypoxemic respiratory failure 2. Syncope 3. Hypothyroidism multiple rib fxs Demographics: Age: 70Y Gender: Female Primary Language: Rwandan Preferred Language: Rwandan Rehabilitation Precautions/Restrictio ns: 4L via NC, puree / nectar diet SUBJECTIVE Patient Report: I need a drink. Patient/Caregiver Goals: Can I have some ice? Pain: Patient currently without complaints of pain. [...] with Railing: A lot of help needed [facility] PATIENT NAME: ANDRE BLANCA [facility] Dr. Andrea MEDICAL REC #: [id number] [place] [address] ADMIT DATE: 07/27/20 SERVICE DATE: 08/18/20 Physical [...] day. Recommended Equipment: None issued this visit. [facility] PATIENT NAME: ANDRE BLANCA [facility] Dr. Andrea MEDICAL REC #: [id number] [place] [address] ADMIT DATE: 07/27/20 SERVICE DATE: 08/18/20 Physical Therapy Progress Note ATTENDING DAMIAN: Marta Horvath DO Recommended Consults: None currently. Development of Plan of Care: There was no change to plan of care today. If there are any questions regarding this service, please contact the Acute Therapy Department at extension [phone] Location of Patient at End of Therapy Session: In bed, bed alarm in place, call light within reach Services: Total Billed: 44 minutes (Timed: 44, Untimed: 0) 34.00 Timed: [02270] THER ACTIVITIES / 15 MIN 10.00 Timed: [47219] THERAPEUTIC EXERCISE EA 15 MIN 0.00 Untimed: [] PT Treatment- General ORDER Signed by: Alivia Cifuentes, 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 08/18/2020 15:00:21 - CoSigned By: Alivia Patel, PT 08/18/2020 4:03:23 PM [facility] PATIENT NAME: ANDRE BLANCA [facility] Dr. Andrea MEDICAL REC #: [id number] [place] [address] ADMIT DATE: 07/27/20 SERVICE DATE: 08/18/20 Physical Therapy Progress Note ATTENDING PHY: Marta Horvath DO Normal [facility] ASSISTANT FINANCE MANAGER Progress Note [facility] Speech/Language Pathology Inpatient Treatment Note Medical Diagnosis: Acute hypoxemic respiratory failure Demographics: Age: 70Y Gender: Female Primary Language: Rwandan Preferred Language: Rwandan Referring Service/Team: Medicine Rehabilitation Precautions/Restrictio ns: 2L via NC, puree / nectar diet SUBJECTIVE Patient Report: I'm ok Patient/Caregiver Goals: Can I have some ice? Pain: Patient currently without complaints of pain. OBJECTIVE General Observation: Pt was alert and cooperative. Pt sitting up in recliner eating pureed/nectar lunch. Pt's speech was garbled with several intelligible phrases. Swallowing: Pureed diet with nectar thick liquids Cognition: Not assessed Communication: Patient displays the following communication impairments: Most of speech was unintelligible with several intelligible phrases Functional Status: Pureed/[place] Interventions: Swallowing: Pt was consuming pureed/nectar thick liquid lunch when ASSISTANT FINANCE MANAGER entered room. Pt had mildly increased oral [...] mechanical soft diet with thin liquids without [facility] PATIENT NAME: ANDRE BLANCA [facility] Dr. Andrea MEDICAL REC #: [id number] [place] [address] ADMIT DATE: 07/27/20 SERVICE DATE: 08/18/20 Speech-Language [...] contact the Acute Therapy Department at extension [phone] Communication to Nursing: No updates at this time. Services: Total Billed: 45 minutes (Timed: 0, Untimed: 45) 0.00 Untimed: [] Speech Treatment ORDER 45.00 Untimed: [23759] SWALLOWING DYSFUNCT [place] Signed by: LIZABETH RITCHIE 08/18/2020 13:02:16 [facility] PATIENT NAME: ANDRE BLANCA [facility] Dr. Andrea MEDICAL REC #: [id number] [place] [address] ADMIT DATE: 07/27/20 SERVICE DATE: 08/18/20 Speech-Language Progress Note ATTENDING PHY: Marta Horvath DO Normal [facility] CBC W/DIFFon 08-17-2020 BASO ABS 0.10 K/CU MM Normal 0-0.2 [facility] Comment on above: Order Comment: Abundiou s: M Minimal Draw: Y Performed By: #### L 500.88880, L500.62258 #### [facility] LABORATORY [address] [place] [address] Basophils/100 WBC (Bld) 0.7 % Normal 0-2 [facility] Comment on above: Order Comment: Abundiou s: M Minimal Draw: Y Performed By: #### L 500.47326, L500.54200 #### [facility] LABORATORY [address] [place] [address] EOS ABS 0.30 K/CU MM Normal 0-0.5 [facility] Comment on above: Order Comment: Campu s: M Minimal Draw: Y Performed By: #### L 500.67412, L500.91654 #### [facility] LABORATORY [address] [place], [place] [address] Eosinophils/100 WBC (Bld) 3.7 % Normal 0-5 [facility] Comment on above: Order Comment: Abundiou s: M Minimal Draw: Y Performed By: #### L 500.35389, L500.52724 #### [facility] LABORATORY [address] [place], [place] [address] Erythrocyte distribution width (RBC) [Ratio] 15.5 % High 11-14.5 [facility] Comment on above: Order Comment: Abundiou s: M Minimal Draw: Y Performed By: #### L 500.46398, L500.29091 #### [facility] LAB[facility]ATORY [address] [place] [address] Hematocrit (Bld) [Volume fraction] 24.4 % Low 35.0-47.0 [facility] Comment on above: Order Comment: Abundiou s: M Minimal Draw: Y Performed By: #### L 500.70077, L500.02511 #### [facility] LAB[facility]ATORY [address] [place] [address] Hemoglobin (Bld) [Mass/Vol] 7.6 g/dL Low 11.5-15.5 [facility] Comment on above: Order Comment: Abundiou s: M Minimal Draw: Y Performed By: #### L 500.58183, L500.59696 #### [facility] LABORATORY [address] [place] [address] IMMATR GRAN ABS 0.10 K/CU MM Normal Less than 2 [facility] Comment on above: Order Comment: Abundiou s: M Minimal Draw: Y Performed By: #### L 500.47504, L500.25921 #### [facility]ATORY [address] [place] [address] IMMATURE GRAN % 1.0 % Normal Less than 2 [facility] Comment on above: Order Comment: Abundiou s: M Minimal Draw: Y Performed By: #### L 500.23318, L500.68392 #### [facility] LABORATORY [address] [place] [address] Lymphocytes (Bld) [#/Vol] 1.20 K/CU MM Normal 0.9-4.4 [facility] Comment on above: Order Comment: Abundiou s: M Minimal Draw: Y Performed By: #### L 500.80719, L500.71264 #### [facility] LABORATORY [address] [place] [address] Lymphocytes/100 WBC (Bld) 13.5 % Low 20-40 [facility] Comment on above: Order Comment: Abundiou s: M Minimal Draw: Y Performed By: #### L 500.44105, L500.40769 #### [facility] LABORATORY [address] [place] [address] MCHC (RBC) [Mass/Vol] 31.1 g/dL Low 32.0-36.0 [facility] Comment on above: Order Comment: Abundiou s: M Minimal Draw: Y Performed By: #### L 500.65204, L500.57343 #### [facility] LAB[facility]ATORY [address] [place] [address] MCV (RBC) [Entitic vol] 94.2 fL Normal 80.0-99.0 [facility] Comment on above: Order Comment: Abundiou s: M Minimal Draw: Y Performed By: #### L 500.62436, L500.80341 #### [facility] LAB[facility]ATORY [address] [place] [address] MONO ABS 0.70 K/CU MM Normal 0.1-1.1 [facility] Comment on above: Order Comment: Abundiou s: M Minimal Draw: Y Performed By: #### L 500.61769, L500.84298 #### [facility] LAB[facility]ORY [address] [place] [address] Monocytes/100 WBC (Bld) 7.5 % Normal 2-10 [facility] Comment on above: Order Comment: Abundiou s: M Minimal Draw: Y Performed By: #### L 500.39173, L500.15633 #### [facility] LABORATORY [address] [place] [address] NEUTROPHIL ABS 6.60 K/CU MM Normal 2.0-8.3 [facility] Comment on above: Order Comment: Campu s: M Minimal Draw: Y Performed By: #### L 500.35500, L500.70103 #### [facility] LAB[facility]ATORY [address] [place] [address] Neutrophils/100 WBC (Bld) 73.6 % Normal 45-75 [facility] Comment on above: Order Comment: Campu s: M Minimal Draw: Y Performed By: #### L 500.48115, L500.23264 #### [facility]ORY [address] [place] [address] Nucleated RBC/100 WBC (Bld) [Ratio] 0.0 % Normal Less than 1 [facility] Comment on above: Order Comment: Campu s: M Minimal Draw: Y Performed By: #### L 500.43968, L500.30905 #### [facility] LAB[facility]ATORY [address] [place] [address] Platelet mean volume (Bld) [Entitic vol] 11.0 fL Normal 9.4-12.4 [facility] Comment on above: Order Comment: Campu s: M Minimal Draw: Y Performed By: #### L 500.69123, L500.19611 #### [facility] LAB[facility]ATORY [address] [place] [address] Platelets (Bld) [#/Vol] 350 K/CU MM Normal 150-450 [facility] Comment on above: Order Comment: Campu s: M Minimal Draw: Y Performed By: #### L 500.61717, L500.74020 #### [facility] LABORATORY [address] [place], [place] [address] RBC (Bld) [#/Vol] 2.59 M/CU MM Low 3.90-5.30 [facility] Comment on above: Order Comment: Campu s: M Minimal Draw: Y Performed By: #### L 500.74321, L500.69709 #### [facility]ORY [address] [place] [address] WBC (Bld) [#/Vol] 9.0 K/CUMM Normal 4.5-11.0 [facility] Comment on above: Order Comment: Campu s: M Minimal Draw: Y Performed By: #### L 500.81085, L500.81914 #### [facility] [address] [place] [address] CMPon 08-17-2020 Albumin [Mass/Vol] 1.9 g/dL Low 3.2-5.0 [facility] Comment on above: Order Comment: Campu s: M Minimal Draw: Y Performed By: #### L 500.22476, L500.13727 #### [facility]ORY [address] [place] [address] Albumin/Globulin [Mass ratio] 0.5 {ratio} Low 0.8-2.0 [facility] Comment on above: Order Comment: Campu s: M Minimal Draw: Y Performed By: #### L 500.60016, L500.13217 #### [facility] LAB[facility]ORY [address] [place] [address] ALK PHOS 112 U/L Normal 45-117 [facility] Comment on above: Order Comment: Campu s: M Minimal Draw: Y Performed By: #### L 500.21911, L500.97070 #### [facility] LABORATORY [address] [place], [place] [address] ALT [Catalytic activity/Vol] 19 U/L Normal 13-61 [facility] Comment on above: Order Comment: Campu s: M Minimal Draw: Y Result Comment: RESU LTS MAY BE FALSELY DEPRESSED AFTER THE ADMINISTRATION OF SULFASALAZINE AND/OR SULFAPYRIDINE. Performed By: #### L 500.50952, L500.49400 #### [facility] LAB[facility]ATORY [address] [place] [address] Anion gap [Moles/Vol] 3 mmol/L Low 5-16 [facility] Comment on above: Order Comment: Campu s: M Minimal Draw: Y Performed By: #### L 500.05555, L500.61730 #### [facility] LABORATORY [address] [place] [address] BILI TOTAL 0.20 MG/DL Normal 0.2-1.0 [facility] Comment on above: Order Comment: Campu s: M Minimal Draw: Y Performed By: #### L 500.44939, L500.76684 #### [facility] [address] [place] [address] Calcium [Mass/Vol] 8.6 mg/dL Normal 8.5-10.5 [facility] Comment on above: Order Comment: Campu s: M Minimal Draw: Y Result Comment: NOTE NEW NORMAL RANGE DUE TO REAGENT CHANGE Performed By: #### L 500.80247, L500.73605 #### [facility] [address] [place] [address] Chloride [Moles/Vol] 98 mmol/L Normal 98-107 [facility] Comment on above: Order Comment: Campu s: M Minimal Draw: Y Performed By: #### L 500.16569, L500.42614 #### [facility] LABORATORY [address] [place] [address] CO2 [Moles/Vol] 39.0 mmol/L High 21-32 [facility] Comment on above: Order Comment: Campu s: M Minimal Draw: Y Performed By: #### L 500.85002, L500.59090 #### [facility] [address] [place] [address] Creatinine [Mass/Vol] 0.57 mg/dL Normal 0.510-0.950 [facility] Comment on above: Order Comment: Campu s: M Minimal Draw: Y Result Comment: Geraldine ents receiving either N-Acetylcysteine (NAC) or Metamizole prior to venipuncture, may have falsely depressed results. Performed By: #### L 500.98956, L500.73013 #### [facility] LAB[facility] [place] [address] Globulin (S) [Mass/Vol] 4.0 g/dL Normal 2.2-4.[address] [facility] Comment on above: Order Comment: Abundiou s: M Minimal Draw: Y Performed By: #### L 500.53924, L500.74178 #### [facility] [address] [place] [address] Glucose [Mass/Vol] 131 mg/dL High 70-100 [facility] Comment on above: Order Comment: Abundiou s: M Minimal Draw: Y Result Comment: 70-1 00- Normal Fasting; 100-125 Impaired Fasting; greater than 126 on more than one result- Diabetes. ADA guidelines. Results may be falsely elevated after the administration of Sulfapyridine. Results may be falsely depressed after the administration of Sulfasalazine. Performed By: #### L 500.73182, L500.14317 #### [facility] LAB[facility] [address] [place] [address] Potassium [Moles/Vol] 3.9 mmol/L Normal 3.5-5.1 [facility] Comment on above: Order Comment: Abundiou s: M Minimal Draw: Y Performed By: #### L 500.42927, L500.52686 #### [facility] [address] [place] [address] Protein [Mass/Vol] 5.9 g/dL Low 6.0-8.5 [facility] Comment on above: Order Comment: Abundiou s: M Minimal Draw: Y Performed By: #### L 500.56974, L500.88230 #### [facility] [address] [place] [address] SGOT (AST) 21 U/L Normal 8-34 [facility] Comment on above: Order Comment: Abundiou s: M Minimal Draw: Y Result Comment: RESU LTS MAY BE FALSELY DEPRESSED AFTER THE ADMINISTRATION OF SULFASALAZINE AND/OR SULFAPYRIDINE. Performed By: #### L 500.47660, L500.88414 #### [facility] [address] [place] [address] Sodium [Moles/Vol] 138 mmol/L Normal 136-145 [facility] Comment on above: Order Comment: Campu s: M Minimal Draw: Y Performed By: #### L 500.46547, L500.74643 #### [facility] LABOR[facility]ORY [address] [place], [place] [address] Urea nitrogen [Mass/Vol] 10 mg/dL Normal 7-26 [facility] Comment on above: Order Comment: Campu s: M Minimal Draw: Y Performed By: #### L 500.02144, L500.60578 #### [facility] LAB[facility] [address] [place], [place] [address] Urea nitrogen/Creatinine [Mass ratio] 18 mg/mg Normal 15-24 [facility] Comment on above: Order Comment: Campu s: M Minimal Draw: Y Performed By: #### L 500.33597, L500.87031 #### [facility] LAB[facility]ORY [address] [place] [address] GFR ESTon 08-17-2020 IF AMER Greater than 60 Normal [facility] Comment on above: Order Comment: Campu s: M Minimal Draw: Y Performed By: #### L 500.13832, L500.25875 #### [facility] [address] [place] [address]281 IF non-AFR AMER Greater than 60 Normal [facility] Comment on above: Order Comment: Campu s: M Minimal Draw: Y Performed By: #### L 500.14494, L500.31358 #### [facility] [address] [place] [address] GLUCOSE METERon 08-17-2020 Glucose [Mass/Vol] 121 mg/dL Normal 85-125 [facility] [place] Glucose [Mass/Vol] 169 mg/dL High 85-125 [facility] MAGNESIUMon 08-17-2020 Magnesium [Mass/Vol] 2.1 MG/CL Normal 1.6-2.6 [facility] Comment on above: Order Comment: Abundiou s: M What is the source? URINE Performed By: #### M 150.08561, M150.58879 #### [facility] [address] [place] [address] PROG.INTENon 08-17-2020 [facility] Patient Name: ANDRE BLANCA [address] [facility] [address] Date of : [address] [place], [place] [address] Unit Number: [id number] Progress Note-Front Office Manager Patient Status: ADM IN Attending Doctor: Marta Horvath DO Service Date: 08/17/20 1505 Progress Note-Front Office Manager Subjective Subjective: Patient examined chart reviewed. Patient [...] Intake Total 1617 Output Total 3653 Balance -6 Intake, Oral 210 Intake, Tube 1407 Feeding [...] 1335 Clopidogrel Bisulfate 75 MG QDAY 08/05 09 [...] 0538 Heparin Sodium See Dose Q24H 08/06 09 AC 08/17 (Porcine) Insts (1) IV 0534 [...] 538 Lab Results: Lab 24hr (CBC/BMP Fishbone) 08/17/20 1039: Whole Bld Glucose 169 H [...] and Former Tobacco Abuse presented to [facility] emergency department on 07/27 secondary to Syncope [...] #7/7) for aspiration pneumonia, watch off antibiotics. 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 Patient spent time at the [facility] according to son, that is the facility [...] ATTESTATION: Patient individually seen/examined. Agree with the CLOSING MANAGER's notes, assessment and plan. Continue diuresis, currently down to 4 L of NC. Able to tolerate modified diet as well. CCT 35 mins Collaborating Physician: Marge Beckman DO Disclaimer This dictation was created using voice recognition software. Phonetic and/or minor grammatical errors may exist. eSign Date and Time Marge Beckman DO Verified/Reviewed by 08/17/20 1542 Jamaal Thompson CNP [facility] Progress Note-Front Office Manager [facility] PROG.PSYCHon 08-17-2020 PROG.PSYCH [facility] Patient Name: ANDRE BLANCA [address] Date of : [address] [place] [address] Unit Number: [id number] Progress Note-Psych Patient Status: DIS IN Attending Doctor: Marta Horvath DO Service Date: 08/17/20 0849 Progress Note - PSYCH Subjective: (2 ROS minimum) She says she slept well. She also says that she is hungry, sleepy and has had diarrhea. Objective: General appearance is alert. She is oriented to person says that she is in [facility] and the year is 2011. Concentration is [...] Milind Gates MD Verified/Reviewed by 08/24/20 0743 [facility] Progress Note-Psych [facility] 08-17-2020 PT Progress Note [facility] PTPN Physical Therapy Inpatient Treatment Note Medical Diagnosis: 1. Acute hypoxemic respiratory failure 2. Syncope 3. Hypothyroidism multiple rib fxs Demographics: Age: 70Y Gender: Female Primary Language: Rwandan Preferred Language: Rwandan Rehabilitation Precautions/Restrictio ns: restraints, 6L via NC SUBJECTIVE Patient Report: Pt. pleasant easily agreeable to therapy, pleasantly confused; oriented to person, place, time but rambling at times with no significant conversation but will respond appropriately 50% of the time when redirected Patient/Caregiver Goals: I want something to eat. Pain: Patient currently without complaints of pain. [...] with Railing: A lot of help needed [facility] PATIENT NAME: ANDRE BLANCA [facility] Dr. Andrea MEDICAL REC #: [id number] [place] [address] ADMIT DATE: 07/27/20 SERVICE DATE: 08/17/20 Physical [...] as patient buckled with standing and reported I just feel like the lights went out, notified Azucena DALTON, vital sigsn monitored continuously [...] no change to plan of care today. [facility] PATIENT NAME: ANDRE BLANCA [facility] Dr. nAdrea MEDICAL REC #: [id number] [place] [address] ADMIT DATE: 07/27/20 SERVICE DATE: 08/17/20 Physical Therapy Progress Note ATTENDING DAMIAN: Marta Horvath DO If there are any questions regarding this service, please contact the Acute Therapy Department at extension [phone] Location of Patient at End of Therapy Session: In chair, chair alarm in place, call light within reach 2 point wrist restraints reapplied Services: Total Billed: 25 minutes (Timed: 25, Untimed: 0) 10.00 Timed: [10325] THER ACTIVITIES / 15 MIN 15.00 Timed: [08385] THERAPEUTIC EXERCISE EA 15 MIN 0.00 Untimed: [] PT Treatment- General ORDER Signed by: Ioana Holden, 08/17/2020 15:19:34 [facility] PATIENT NAME: ANDRE BLANCA [facility] Dr. Andrea MEDICAL REC #: [id number] [place] [address] ADMIT DATE: 07/27/20 SERVICE DATE: 08/17/20 Physical Therapy Progress Note ATTENDING PHY: Marta Horvath DO [facility] ASSISTANT FINANCE MANAGER Progress Note [facility] Speech/Language Pathology Inpatient Treatment Note Medical Diagnosis: Acute hypoxemic respiratory failure Demographics: Age: 70Y Gender: Female Primary Language: Rwandan Preferred Language: Rwandan Referring Service/Team: Cardiology Rehabilitation Precautions/Restrictio ns: NG tube, restraints, high flow NC, SUBJECTIVE Patient Report: Pt was very pleasant, eager to eat. I'd like to take a nap after I get something to eat. Patient/Caregiver Goals: I want something to eat. Pain: Patient currently without complaints of pain. OBJECTIVE General Observation: Pt was awake and alert, very pleasant and cooperative. Pt told ASSISTANT FINANCE MANAGER that she had dysphagia prior to admit from her previous stroke. She said she would sometimes choke on solid foods. Nursing called ST dept for a swallow re-assessment as he hoped [...] (x1 via spoon), and pudding, fed by ASSISTANT FINANCE MANAGER. Pt had mildly increased a-p movement with all consistencies. Mild lingual pumping noted. Pt appeared to have rapid loss of oral control and pharyngeal discoordination with thin liquids as an immediate reflexive cough response occured after the swallow. With the initial sip of nectar liquid via spoon, pt coughed x1. However, multiple subsequent trials of nectar liquid via [facility] PATIENT NAME: ANDRE BLANCA [facility] Dr. Andrea MEDICAL REC #: [id number] [place] [address] ADMIT DATE: 07/27/20 SERVICE DATE: 08/17/20 Speech-Language [...] possible MBS pending patient progress; pt education [facility] PATIENT NAME: ANDRE BLANCA [facility] Dr. Andrea MEDICAL REC #: [id number] [place] [address] ADMIT DATE: 07/27/20 SERVICE DATE: 08/17/20 Speech-Language Progress Note ATTENDING GIRISHY: Marta Horvath DO Recommended Speech/Language Pathology Therapy [...] contact the Acute Therapy Department at extension [phone] Communication to Nursing: Puree, nectar liquids, meds crushed in puree, 100% assistance Location of Patient at End of Therapy Session: In bed, bed alarm in place, call light within reach Services: Total Billed: 45 minutes (Timed: 0, Untimed: 45) 0.00 Untimed: [] Speech Treatment ORDER 45.00 Untimed: [04898] SWALLOWING DYSFUNCT TX Signed by: LIZABETH GOMES 08/17/2020 10:36:22 [facility] PATIENT NAME: ANDRE BLANCA [address] [place] [address] Dr. Andrea MEDICAL REC #: [id number] [place] [address] ADMIT DATE: 07/27/20 SERVICE DATE: 08/17/20 Speech-Language Progress Note ATTENDING PHY: Marta Horvath DO Normal [facility] CBC W/DIFFon 08-16-2020 BASO ABS 0.10 K/CU MM Normal 0-0.2 [facility] Comment on above: Order Comment: Maciel s: M What is the source? URINE Performed By: #### M 150.04247, M150.34692 #### [facility] [address] [place] [address]8314 Basophils/100 WBC (Bld) 0.7 % Normal 0-[address] [facility] Comment on above: Order Comment: Maciel s: M What is the source? URINE Performed By: #### M 150.67534, M150.80973 #### [facility] [address] [place] [address] 34779 EOS ABS 0.40 K/CU MM Normal 0-0.5 [facility] Comment on above: Order Comment: Campu s: M What is the source? URINE Performed By: #### M 150.33552, M150.33144 #### [facility] [place] [address] Eosinophils/100 WBC (Bld) 4.1 % Normal 0-5 [facility] Comment on above: Order Comment: Campu s: M What is the source? URINE Performed By: #### M 150.52480, M150.07256 #### [facility] [address] [place] [address]60 Erythrocyte distribution width (RBC) [Ratio] 15.8 % High 11-14.5 [facility] Comment on above: Order Comment: Campu s: M What is the source? URINE Performed By: #### M 150.55965, M150.83279 #### [facility] [address] [place] [address] 35500 Hematocrit (Bld) [Volume fraction] 26.5 % Low 35.0-47.0 [facility] Comment on above: Order Comment: Campu s: M What is the source? URINE Performed By: #### M 150.88194, M150.57077 #### [facility] [address] [place] [address] 97774 Hemoglobin (Bld) [Mass/Vol] 8.0 g/dL Low 11.5-15.5 [facility] Comment on above: Order Comment: Campu s: M What is the source? URINE Performed By: #### M 150.31392, M150.87836 #### [facility] [address] [place] [address] IMMATR GRAN ABS 0.10 K/CU MM Normal Less than 2 [facility] Comment on above: Order Comment: Campu s: M What is the source? URINE Performed By: #### M 150.43938, M150.07968 #### [facility] [address] [place] [address] 75841 IMMATURE GRAN % 1.0 % Normal Less than 2 [facility] Comment on above: Order Comment: Campu s: M What is the source? URINE Performed By: #### M 150.50491, M150.68669 #### [facility] [address] [place] [address] Lymphocytes (Bld) [#/Vol] 1.30 K/CU MM Normal 0.9-4.4 [facility] Comment on above: Order Comment: Campu s: M What is the source? URINE Performed By: #### M 150.57232, M150.71601 #### [facility] [address] [place] [address] 49544 Lymphocytes/100 WBC (Bld) 13.6 % Low 20-40 [facility] Comment on above: Order Comment: Campu s: M What is the source? URINE Performed By: #### M 150.01598, M150.08616 #### [facility] [address] [place] [address] 07669 MCHC (RBC) [Mass/Vol] 30.2 g/dL Low 32.0-36.0 [facility] Comment on above: Order Comment: Campu s: M What is the source? URINE Performed By: #### M 150.75408, M150.82491 #### [facility] [address] [place] [address] 65936 MCV (RBC) [Entitic vol] 97.1 fL Normal 80.0-99.0 [facility] Comment on above: Order Comment: Campu s: M What is the source? URINE Performed By: #### M 150.31661, M150.24594 #### [facility] [address] [place] [address] 98259 MONO ABS 0.70 K/CU MM Normal 0.1-1.1 [facility] Comment on above: Order Comment: Campu s: M What is the source? URINE Performed By: #### M 150.62565, M150.13228 #### [facility] [address] [place] [address] Monocytes/100 WBC (Bld) 7.4 % Normal 2-[address] [facility] Comment on above: Order Comment: Campu s: M What is the source? URINE Performed By: #### M 150.57457, M150.94587 #### [facility] [place] [address] NEUTROPHIL ABS 6.70 K/CU MM Normal 2.0-8.3 [facility] Comment on above: Order Comment: Campu s: M What is the source? URINE Performed By: #### M 150.80645, M150.02276 #### [facility] [address] [place] [address] 89191 Neutrophils/100 WBC (Bld) 73.2 % Normal 45-75 [facility] Comment on above: Order Comment: Campu s: M What is the source? URINE Performed By: #### M 150.64670, M150.22046 #### [facility] [address] [place] [address] 13427 Nucleated RBC/100 WBC (Bld) [Ratio] 0.0 % Normal Less than 1 [facility] Comment on above: Order Comment: Campu s: M What is the source? URINE Performed By: #### M 150.35491, M150.89307 #### [facility] [place] [address] Platelet mean volume (Bld) [Entitic vol] 10.9 fL Normal 9.4-12.4 [facility] Comment on above: Order Comment: Campu s: M What is the source? URINE Performed By: #### M 150.42583, M150.06345 #### [facility] [address] [place] [address] Platelets (Bld) [#/Vol] 301 K/CU MM Normal 150-450 [facility] Comment on above: Order Comment: Campu s: M What is the source? URINE Performed By: #### M 150.86151, M150.67338 #### [facility] [address] [place] [address] RBC (Bld) [#/Vol] 2.73 M/CU MM Low 3.90-5.30 [facility] Comment on above: Order Comment: Campu s: M What is the source? URINE Performed By: #### M 150.55648, M150.98667 #### [facility] [place] [address] WBC (Bld) [#/Vol] 9.2 K/CUMM Normal 4.5-11.0 [facility] Comment on above: Order Comment: Campu s: M What is the source? URINE Performed By: #### M 150.57603, M150.85036 #### [facility] [address] [place] [address] 76110 CMPon 08-16-2020 Albumin [Mass/Vol] 1.9 g/dL Low 3.2-5.0 [facility] Comment on above: Order Comment: Campu s: M Performed By: #### L 200.49482 #### [facility] [address] [place] [address] 23731 Albumin/Globulin [Mass ratio] 0.5 {ratio} Low 0.8-2.0 [facility] Comment on above: Order Comment: Campu s: M Performed By: #### L 200.21697 #### [facility] [address] [place] [address] 49065 ALK PHOS 129 U/L High 45-117 [facility] Comment on above: Order Comment: Campu s: M Performed By: #### L 200.25461 #### [facility] [address] [place] [address] ALT [Catalytic activity/Vol] 22 U/L Normal 13-61 [facility] Comment on above: Order Comment: Campu s: M Result Comment: RESU LTS MAY BE FALSELY DEPRESSED AFTER THE ADMINISTRATION OF SULFASALAZINE AND/OR SULFAPYRIDINE. Performed By: #### L 200.87660 #### [facility] [address] [place] [address] Anion gap [Moles/Vol] 4 mmol/L Low 5-16 [facility] Comment on above: Order Comment: Campu s: M Performed By: #### L 200.53326 #### [facility] [address] [place] [address] BILI TOTAL 0.20 MG/DL Normal 0.2-1.0 [facility] Comment on above: Order Comment: Campu s: M Performed By: #### L 200.13976 #### [facility] [address] [place] [address] Calcium [Mass/Vol] 8.6 mg/dL Normal 8.5-10.5 [facility] Comment on above: Order Comment: Campu s: M Result Comment: NOTE NEW NORMAL RANGE DUE TO REAGENT CHANGE Performed By: #### L 200.65651 #### [facility] [place] [address] Chloride [Moles/Vol] 98 mmol/L Normal 98-107 [facility] Comment on above: Order Comment: Campu s: M Performed By: #### L 200.60860 #### [facility] [place] [address] CO2 [Moles/Vol] 38.0 mmol/L High 21-32 [facility] Comment on above: Order Comment: Campu s: M Performed By: #### L 200.37099 #### [facility] [address] [place], [place] [address] Creatinine [Mass/Vol] 0.61 mg/dL Normal 0.510-0.950 [facility] Comment on above: Order Comment: Campu s: M Result Comment: Geraldine ents receiving either N-Acetylcysteine (NAC) or Metamizole prior to venipuncture, may have falsely depressed results. Performed By: #### L 200.61035 #### [facility] [address] [place] [address] Globulin (S) [Mass/Vol] 3.8 g/dL Normal 2.2-4.2 [facility] Comment on above: Order Comment: Campu s: M Performed By: #### L 200.08202 #### [facility] [address] [place] [address] Glucose [Mass/Vol] 158 mg/dL High 70-100 [facility] Comment on above: Order Comment: Campu s: M Result Comment: 70-1 00- Normal Fasting; 100-125 Impaired Fasting; greater than 126 on more than one result- Diabetes. ADA guidelines. Results may be falsely elevated after the administration of Sulfapyridine. Results may be falsely depressed after the administration of Sulfasalazine. Performed By: #### L 200.50340 #### [facility] [address] [place] [address] Potassium [Moles/Vol] 4.0 mmol/L Normal 3.5-5.1 [facility] Comment on above: Order Comment: Campu s: M Performed By: #### L 200.26860 #### [facility] [address] [place] [address]33 Protein [Mass/Vol] 5.7 g/dL Low 6.0-8.5 [facility] Comment on above: Order Comment: Campu s: M Performed By: #### L 200.60795 #### [facility] [address] [place] [address] SGOT (AST) 25 U/L Normal 8-34 [facility] Comment on above: Order Comment: Campu s: M Result Comment: RESU LTS MAY BE FALSELY DEPRESSED AFTER THE ADMINISTRATION OF SULFASALAZINE AND/OR SULFAPYRIDINE. Performed By: #### L 200.21591 #### [facility] [address] [place] [address] Sodium [Moles/Vol] 139 mmol/L Normal 136-145 [facility] Comment on above: Order Comment: Campu s: M Performed By: #### L 200.38173 #### [facility] [address] [place] [address] Urea nitrogen [Mass/Vol] 11 mg/dL Normal 7-26 [facility] Comment on above: Order Comment: Campu s: M Performed By: #### L 200.68913 #### [facility] [address] [place], [place] [address] Urea nitrogen/Creatinine [Mass ratio] 18 mg/mg Normal 15-24 [facility] Comment on above: Order Comment: Campu s: M Performed By: #### L 200.21342 #### [facility] [address] [place] [address] GFR ESTon 08-16-2020 IF AMER Greater than 60 Normal [facility] Comment on above: Order Comment: Campu s: M Performed By: #### L 200.45537 #### [facility] [address] [place] [address] IF non-AFR AMER Greater than 60 Normal [facility] Comment on above: Order Comment: Campu s: M Performed By: #### L 200.51453 #### [facility] [address] [place] [address] GLUCOSE METERon 08-16-2020 Glucose [Mass/Vol] 128 mg/dL High 85-125 [facility] Glucose [Mass/Vol] 129 mg/dL High 85-125 [facility] Glucose [Mass/Vol] 168 mg/dL High 85-125 [facility]OG [facility] 08-16-2020 PROG [facility] Patient Name: ANDRE BLANCA [address] Date of : [address] [place] [address] Unit Number: [id number] Progress Note-Hospitalist Patient Status: ADM IN Attending Doctor: Marta Horvath DO Service Date: 08/16/20 09 Chief Complaint Chief Complaint Syncope Subjective S: (2 ROS minimum) Not seen, chart reviewed. Objective (ROS) Nursing Vitals Vital Signs (Last) Result Date Time Pulse Ox 90 08/16 817 O2 Delivery NASAL CANNULA 08/16 817 O2 Flow Rate 6L 08/16 0818 B/P 124/58 08/16 0810 B/P Mean 84 08/16 0810 Temp 98.6 08/16 0810 Pulse 86 08/16 0810 Resp 24 08/16 0810 Diagnostic Data: Lab 24hr (CBC/BMP [facility]) 08/16/20 0536: [Embedded Image Not Available] Anion [...] and Time Tila Guan MD Verified/Reviewed by 08/16/2018 [facility] Progress Note-Hospitalist [facility] PROG.[facility]ocael 08-16-2020 PROG.[facility] Patient Name: ANDRE BLANCA [address] Date of : 48 [place], [place] [address] Unit Number: [id number] Progress Note-Front Office Manager Patient Status: ADM IN Attending Doctor: Marta Horvath DO Service Date: 08/16/20815 Progress Note-Front Office Manager Subjective Subjective: Attempts to to wean high [...] 1753 Clopidogrel Bisulfate 75 MG QDAY 08/05 09 AC 08/15 (PLAVIX TAB) TUBE 0925 Dexmedetomidine [...] 2112 Menthol/Methyl 1 APPL BIDPRN PRN 07/28 003 AC 08/15 Salicylate TP 2048 (MIHIR ALVAREZ [...] Report Impression - Status: SIGNED Entered: 08/14/2020 3585 IMPRESSION: The tip of the OG tube is in the mid to distal stomach. Impression By: JASON PATIÑO M.D. 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 Patient spent time at the [facility] according to son, that is the facility [...] Time Jayesh Loera MD Verified/Reviewed by 08/16/20818 [facility] Progress Note-Front Office Manager [facility] 08-15-2020 Anion gap [Moles/Vol] 3 mmol/L Low 5-16 [facility] Comment on above: Order Comment: Campu s: M Performed By: #### L 500.70391, L500.82813, L500.60324 ####[facility] [id number] [place], [place] [address]Sw# [phone] Calcium [Mass/Vol] 8.1 mg/dL Low 8.5-10.5 [facility] Comment on above: Order Comment: Campu s: M Result Comment: NOTE NEW NORMAL RANGE DUE TO REAGENT CHANGE Performed By: #### L 500.81770, L500.09395, L500.17274 ####[facility] [id number] [place], [place] [address]Qj# [phone] Chloride [Moles/Vol] 99 mmol/L Normal 98-107 [facility] Comment on above: Order Comment: Campu s: M Performed By: #### L 500.93968, L500.46062, L500.44927 ####[facility] [id number] [place], [place] [address]Xu# [phone] CO2 [Moles/Vol] 40.0 mmol/L High 21-32 [facility] Comment on above: Order Comment: Campu s: M Performed By: #### L 500.00751, L500.55223, L500.29353 ####[facility] [id number] [place], [place] [address]Tk# [phone] Creatinine [Mass/Vol] 0.62 mg/dL Normal 0.510-0.950 [facility] Comment on above: Order Comment: Campu s: M Result Comment: Geraldine ents receiving either N-Acetylcysteine (NAC) or Metamizole prior to venipuncture, may have falsely depressed results. Performed By: #### L 500.95572, L500.05464, L500.64863 ####[facility] [id number] [place], [place] [address]Cr# [phone] Glucose [Mass/Vol] 177 mg/dL High 70-100 [facility] Comment on above: Order Comment: Campu s: M Result Comment: 70-1 00- Normal Fasting; 100-125 Impaired Fasting; greater than 126 on more than one result- Diabetes. ADA guidelines. Results may be falsely elevated after the administration of Sulfapyridine. Results may be falsely depressed after the administration of Sulfasalazine. Performed By: #### L 500.00851, L500.08876, L500.73310 ####[facility] [id number] [place], [place] [address]If# [phone] Potassium [Moles/Vol] 4.0 mmol/L Normal 3.5-5.1 [facility] Comment on above: Order Comment: Campu s: M Performed By: #### L 500.47929, L500.32219, L500.78355 ####[facility] [id number] [place], [place] [address]Ne# [phone] Sodium [Moles/Vol] 139 mmol/L Normal 136-145 [facility] Comment on above: Order Comment: Campu s: M Performed By: #### L 500.12344, L500.45944, L500.09168 ####[facility] [id number] [place], [place] [address]Lv# [phone] Urea nitrogen [Mass/Vol] 12 mg/dL Normal 7-26 [facility] Comment on above: Order Comment: Campu s: M Performed By: #### L 500.39058, L500.34435, L500.31307 ####[facility] [id number] [place], [place] [address]Ll# [phone] Urea nitrogen/Creatinine [Mass ratio] 19 mg/mg Normal 15-24 [facility] Comment on above: Order Comment: Campu s: M Performed By: #### L 500.75549, L500.43632, L500.86840 ####[facility] [id number] [place], [place] [address]Yo# [phone] CBC W/DIFFon 08-15-2020 BASO ABS 0.00 K/CU MM Normal 0-0.2 [facility] Comment on above: Order Comment: Campu s: M What is the source? URINE Performed By: #### M 150.90557, M150.54339 #### [facility] [place] [address] Basophils/100 WBC (Bld) 0.4 % Normal 0-[address] [facility] Comment on above: Order Comment: Campu s: M What is the source? URINE Performed By: #### M 150.79578, M150.80216 #### [facility] [address] [place] [address] 22296 EOS ABS 0.30 K/CU MM Normal 0-0.5 [facility] Comment on above: Order Comment: Campu s: M What is the source? URINE Performed By: #### M 150.62930, M150.53759 #### [facility] [address] [place] [address] 23983 Eosinophils/100 WBC (Bld) 3.0 % Normal 0-5 [facility] Comment on above: Order Comment: Campu s: M What is the source? URINE Performed By: #### M 150.60624, M150.89640 #### [facility] [address] [place] [address] Erythrocyte distribution width (RBC) [Ratio] 15.6 % High 11-14.5 [facility] Comment on above: Order Comment: Abundiou s: M What is the source? URINE Performed By: #### M 150.78037, M150.65459 #### [facility] [address] [place] [address] Hematocrit (Bld) [Volume fraction] 25.2 % Low 35.0-47.0 [facility] Comment on above: Order Comment: Abundiou s: M What is the source? URINE Performed By: #### M 150.86260, M150.36592 #### [facility] [address] [place] [address] 36582 Hemoglobin (Bld) [Mass/Vol] 7.6 g/dL Low 11.5-15.5 [facility] Comment on above: Order Comment: Campu s: M What is the source? URINE Performed By: #### M 150.93837, M150.42076 #### [facility] [address] [place] [address] 07456 IMMATR GRAN ABS 0.10 K/CU MM Normal Less than 2 [facility] Comment on above: Order Comment: Campu s: M What is the source? URINE Performed By: #### M 150.38522, M150.65063 #### [facility] [address] [place] [address] 97216 IMMATURE GRAN % 1.3 % Normal Less than 2 [facility] Comment on above: Order Comment: Abudniou s: M What is the source? URINE Performed By: #### M 150.63528, M150.73036 #### [facility] [address] [place] [address] 68655 Lymphocytes (Bld) [#/Vol] 0.90 K/CU MM Normal 0.9-4.4 [facility] Comment on above: Order Comment: Campu s: M What is the source? URINE Performed By: #### M 150.14396, M150.89296 #### [facility] [address] [place] [address] 88947 Lymphocytes/100 WBC (Bld) 9.0 % Low 20-40 [facility] Comment on above: Order Comment: Campu s: M What is the source? URINE Performed By: #### M 150.19050, M150.52272 #### [facility] [address] [place] [address] 30290 MCHC (RBC) [Mass/Vol] 30.2 g/dL Low 32.0-36.0 [facility] Comment on above: Order Comment: Campu s: M What is the source? URINE Performed By: #### M 150.25525, M150.50822 #### [facility] [address] [place] [address] 63603 MCV (RBC) [Entitic vol] 97.3 fL Normal 80.0-99.0 [facility] Comment on above: Order Comment: Campu s: M What is the source? URINE Performed By: #### M 150.82160, M150.16202 #### [facility] [address] [place] [address] 74346 MONO ABS 0.60 K/CU MM Normal 0.1-1.1 [facility] Comment on above: Order Comment: Campu s: M What is the source? URINE Performed By: #### M 150.69755, M150.18686 #### [facility] [address] [place] [address] 20832 Monocytes/100 WBC (Bld) 5.7 % Normal 2-[address] [facility] Comment on above: Order Comment: Campu s: M What is the source? URINE Performed By: #### M 150.90491, M150.57038 #### [facility] [address] [place] [address] NEUTROPHIL ABS 8.30 K/CU MM Normal 2.0-8.3 [facility] Comment on above: Order Comment: Campu s: M What is the source? URINE Performed By: #### M 150.91681, M150.35262 #### [facility] [place] [address] Neutrophils/100 WBC (Bld) 80.6 % High 45-75 [facility] Comment on above: Order Comment: Campu s: M What is the source? URINE Performed By: #### M 150.99031, M150.14911 #### [facility] [address] [place] [address] 78535 Nucleated RBC/100 WBC (Bld) [Ratio] 0.0 % Normal Less than 1 [facility] Comment on above: Order Comment: Campu s: M What is the source? URINE Performed By: #### M 150.96789, M150.79227 #### [facility] [address] [place] [address] 12177 Platelet mean volume (Bld) [Entitic vol] 11.1 fL Normal 9.4-12.4 [facility] Comment on above: Order Comment: Campu s: M What is the source? URINE Performed By: #### M 150.61710, M150.75290 #### [facility] [address] [place] [address] 46025 Platelets (Bld) [#/Vol] 245 K/CU MM Normal 150-450 [facility] Comment on above: Order Comment: Campu s: M What is the source? URINE Performed By: #### M 150.96046, M150.14861 #### [facility] [address] [place] [address] RBC (Bld) [#/Vol] 2.59 M/CU MM Low 3.90-5.30 [facility] Comment on above: Order Comment: Campu s: M What is the source? URINE Performed By: #### M 150.40332, M150.45111 #### [facility] [address] [place] [address] 42557 WBC (Bld) [#/Vol] 10.2 K/CUMM Normal 4.5-11.0 [facility] Comment on above: Order Comment: Campu s: M What is the source? URINE Performed By: #### M 150.43121, M150.57592 #### [facility] [place] [address] GFR ESTon 08-15-2020 IF AMER Greater than 60 Normal [facility] Comment on above: Order Comment: Campu s: M Performed By: #### L 500.67495, L500.00449, L500.05589 ####[facility] [id number] [place] [address] 46878Ur# [phone] IF non-AFR AMER Greater than 60 Normal [facility] Comment on above: Order Comment: Campu s: M Performed By: #### L 500.80959, L500.15069, L500.94155 ####[facility] [id number] [place], [place] [address]It# [phone] MAGNESIUMon 08-15-2020 Magnesium [Mass/Vol] 1.7 MG/CL Normal 1.6-2.6 [facility] Comment on above: Order Comment: Campu s: M Performed By: #### L 500.20969, L500.93101, L500.92978 ####[facility] [id number] [place] [address] 714[address]Qo# [phone] PROG IMSon 08-15-2020 PROG [facility] Patient Name: ANDRE BLANCA [facility] [facility] Date of : [address] [address] Unit Number: [id number] Progress Note-Hospitalist Patient Status: ADM IN Attending [...] Time Tila Guan MD Verified/Reviewed by 08/15/201858 [facility] Progress Note-Hospitalist [facility] PROG.[facility]ocael [facility]: ANDRE BLANCA [address] Date of : [address] [address] Unit Number: [id number] Progress Note-Front Office Manager Patient Status: ADM IN Attending Doctor: Marta Horvath DO Service Date: 08/15/20 075 Progress Note-Front Office Manager Subjective Subjective: Still requiring high flow oxygen [...] TUBE 1608 Carbamazepine 200 MG TIDWM 08/05 08 AC 08/14 (TEGRETOL TAB) TUBE 1608 Clopidogrel [...] 08/07 09 AC 08/15 (HALDOL AMP) IV 0531 Heparin Sodium See Dose Q24H 08/06 0900 AC 08/14 (Porcine) Insts (1) IV 0848 (HEP-LOCK *10*UNITS/ ML IV D.SYR.PF) Heparin Sodium See Dose PRN PRN 08/05 1500 AC (Porcine) Insts (2) IV (HEP-LOCK *10*UNITS/ ML IV D.SYR.PF) Levothyroxine Sodium 0.125 MG QDAYAC 08/09 07 AC 08/15 (SYNTHROID TAB) PO 0533 Loperamide [...] Pravastatin Sodium 40 MG QHS 08/040 AC 08/14 (PRAVACHOL TAB) TUBE 2028 Pregabalin [...] and Former Tobacco Abuse presented to [facility] emergency department on 07/27 secondary to Syncope [...] 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 Patient spent time at the [facility] according to son, that is the facility [...] Jayesh Loera MD Verified/Reviewed by 08/15/20 0800 Normal [facility] Neal Progress Note-Front Office Manager Normal [facility] Neal Painting 08-15-2020 ASSISTANT FINANCE MANAGER Assessment Report Normal [facility] Speech/Language Pathology Inpatient Clinical Swallow Evaluation Medical Diagnosis: Acute hypoxemic respiratory failure Therapy Diagnosis: Rank Code Description 1 R13.10 Dysphagia, unspecified Demographics: Age: 70Y Gender: Female Primary Language: Rwandan Preferred Language: Rwandan Referring Service/Team: Medicine Past Medical History: PMHx: [...] Illness 70-year-old female, primary care through the [facility], past medical history CVA, hypothyroidism, COPD not on home oxygen, recurrent syncopal episodes in the past that she states have been worked up by her physicians at the [facility], testing done at the [facility] and here at [facility], concluding that she has low blood pressure. 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 Andrea MEDICAL REC #: [id number] [place] [address] ADMIT DATE: 07/27/20 SERVICE DATE: 08/15/20 Speech-Language [...] risk for aspiration/laryngeal penetration at this time. [facility] PATIENT NAME: ANDRE BLANCA [facility] Dr. Andrea MEDICAL REC #: [id number] [place] [address] ADMIT DATE: 07/27/20 SERVICE DATE: 08/15/20 Speech-Language [...] contact the Acute Therapy Department at extension [phone] Communication to Nursing: Explained results/recommendation s to nursing after [facility] MEDICAL REC #: [id number] [place] [address] ADMIT DATE: 07/27/20 SERVICE DATE: 08/15/20 Speech-Language Assessment Report ATTENDING PHY: Marta Horvath DO session. Location of Patient at End of Therapy Session: In chair, call light within reach restraints in place Services: Total Billed: 45 minutes (Timed: 0, Untimed: 45) 45.00 Untimed: [78920] BDSIDE SWALLOW EVAL 0.00 Untimed: [] Speech Treatment ORDER 0.00 Untimed: [] SPEECH THERAPY CONSULT Signed by: LIZABETH Taylor 08/15/2020 13:35:38 [facility] PAT[facility] MEDICAL REC #: [id number] [place] [address] ADMIT DATE: 07/27/20 SERVICE DATE: 08/15/20 Speech-Language Assessment Report ATTENDING PHY: Marta Horvath DO Normal [facility] 08-14-2020 Anion gap [Moles/Vol] 3 mmol/L Low 5-16 [facility] Comment on above: Order Comment: Campu s: M Performed By: #### L 500.33753, L500.07263, L500.12565 ####[facility] [id number] [place], [place] [address]Cq# [phone] Calcium [Mass/Vol] 8.3 mg/dL Low 8.5-10.5 [facility] Comment on above: Order Comment: Campu s: M Result Comment: NOTE NEW NORMAL RANGE DUE TO REAGENT CHANGE Performed By: #### L 500.18192, L500.11979, L500.33320 ####[facility] [id number] [place], [place] [address]Tq# [phone] Chloride [Moles/Vol] 99 mmol/L Normal 98-107 [facility] Comment on above: Order Comment: Campu s: M Performed By: #### L 500.71244, L500.67646, L500.91969 ####[facility] [id number] [place], [place] [address]Qk# [phone] CO2 [Moles/Vol] 38.0 mmol/L High 21-32 [facility] Comment on above: Order Comment: Campu s: M Performed By: #### L 500.88532, L500.60911, L500.95411 ####[facility] [id number] [place], [place] [address]Ci# [phone] Creatinine [Mass/Vol] 0.61 mg/dL Normal 0.510-0.950 [facility] Comment on above: Order Comment: Campu s: M Result Comment: Geraldine ents receiving either N-Acetylcysteine (NAC) or Metamizole prior to venipuncture, may have falsely depressed results. Performed By: #### L 500.09051, L500.53376, L500.55050 ####[facility] [id number] [place], [place] [address]Dv# [phone] Glucose [Mass/Vol] 171 mg/dL High 70-100 [facility] Comment on above: Order Comment: Campu s: M Result Comment: 70-1 00- Normal Fasting; 100-125 Impaired Fasting; greater than 126 on more than one result- Diabetes. ADA guidelines. Results may be falsely elevated after the administration of Sulfapyridine. Results may be falsely depressed after the administration of Sulfasalazine. Performed By: #### L 500.20321, L500.74385, L500.76585 ####[facility] [id number] [place], [place] [address]Vb# [phone] Potassium [Moles/Vol] 4.2 mmol/L Normal 3.5-5.1 [facility] Comment on above: Order Comment: Campu s: M Performed By: #### L 500.00477, L500.82035, L500.94550 ####[facility] [id number] [place], [place] [address]Xx# [phone] Sodium [Moles/Vol] 139 mmol/L Normal 136-145 [facility] Comment on above: Order Comment: Campu s: M Performed By: #### L 500.85548, L500.04919, L500.90812 ####[facility] [id number] [place], [place] [address]Qt# [phone] Urea nitrogen [Mass/Vol] 11 mg/dL Normal 7-26 [facility] Comment on above: Order Comment: Campu s: M Performed By: #### L 500.61302, L500.11390, L500.38334 ####[facility] [id number] [place], [place] [address]Lo# [phone] Urea nitrogen/Creatinine [Mass ratio] 18 mg/mg Normal 15-24 [facility] Comment on above: Order Comment: Campu s: M Performed By: #### L 500.59273, L500.72274, L500.50353 ####[facility] [id number] [place], [place] [address]Om# [phone] CBC W/DIFFon 08-14-2020 BASO ABS 0.10 K/CU MM Normal 0-0.2 [facility] Comment on above: Order Comment: Campu s: M Performed By: #### L 200.96654 ####[facility] [id number] [place], [place] [address]Mk# [phone] Basophils/100 WBC (Bld) 0.4 % Normal 0-2 [facility] Comment on above: Order Comment: Campu s: M Performed By: #### L 200.60798 ####[facility] [id number] [place] [address]Tm# [phone] EOS ABS 0.40 K/CU MM Normal 0-0.5 [facility] Comment on above: Order Comment: Campu s: M Performed By: #### L 200.64106 ####[address] [place], [place] [address]Rk# [phone] Eosinophils/100 WBC (Bld) 3.7 % Normal 0-5 [facility] Comment on above: Order Comment: Campu s: M Performed By: #### L 200.15727 ####[facility] [id number] [place] [address]Xq# [phone] Erythrocyte distribution width (RBC) [Ratio] 15.9 % High 11-14.5 [facility] Comment on above: Order Comment: Campu s: M Performed By: #### L 200.32303 ####[facility] [id number] [place] [address]Yu# [phone] Hematocrit (Bld) [Volume fraction] 27.9 % Low 35.0-47.0 [facility] Comment on above: Order Comment: Campu s: M Performed By: #### L 200.38479 ####[facility] [id number] [place] [address]Xm# [phone] Hemoglobin (Bld) [Mass/Vol] 8.4 g/dL Low 11.5-15.5 [facility] Comment on above: Order Comment: Campu s: M Performed By: #### L 200.85521 ####[facility] [id number] [place], [place] [address]Bv# [phone] IMMATR GRAN ABS 0.20 K/CU MM Normal Less than 2 [facility] Comment on above: Order Comment: Campu s: M Performed By: #### L 200.79136 ####[address] [place], [place] [address]Rp# [phone] IMMATURE GRAN % 2.1 % Normal Less than 2 [facility] Comment on above: Order Comment: Campu s: M Performed By: #### L 200.66837 ####[address] [address]Ph# [phone] Lymphocytes (Bld) [#/Vol] 1.20 K/CU MM Normal 0.9-4.4 [facility] Comment on above: Order Comment: Campu s: M Performed By: #### L 200.36700 ####[address] [address]Ph# [phone] Lymphocytes/100 WBC (Bld) 10.7 % Low 20-40 [facility] Comment on above: Order Comment: Campu s: M Performed By: #### L 200.44784 ####[address] [address]Ph# [phone] MCHC (RBC) [Mass/Vol] 30.1 g/dL Low 32.0-36.0 [facility] Comment on above: Order Comment: Campu s: M Performed By: #### L 200.61356 ####[facility] [id number] [place] [address]Yw# [phone] MCV (RBC) [Entitic vol] 97.9 fL Normal 80.0-99.0 [facility] Comment on above: Order Comment: Campu s: M Performed By: #### L 200.89509 ####[facility] [id number] [place] [address]Kg# [phone] MONO ABS 0.70 K/CU MM Normal 0.1-1.1 [facility] Comment on above: Order Comment: Campu s: M Performed By: #### L 200.51994 ####[facility] [id number] [place], [place] [address]In# [phone] Monocytes/100 WBC (Bld) 5.9 % Normal 2-[address] [facility] Comment on above: Order Comment: Campu s: M Performed By: #### L 200.32760 ####[facility] [id number] [place] [address]Wx# [phone] NEUTROPHIL ABS 8.70 K/CU MM High 2.0-8.3 [facility] Comment on above: Order Comment: Campu s: M Performed By: #### L 200.55683 ####[address] [address]Yb# [phone] Neutrophils/100 WBC (Bld) 77.2 % High 45-75 [facility] Comment on above: Order Comment: Campu s: M Performed By: #### L 200.98089 ####[facility] [id number] [place] [address]Cs# [phone] Nucleated RBC/100 WBC (Bld) [Ratio] 0.0 % Normal Less than 1 [facility] Comment on above: Order Comment: Campu s: M Performed By: #### L 200.75736 ####[facility] [id number] [place], [place] [address]Ph# [phone] Platelet mean volume (Bld) [Entitic vol] 11.0 fL Normal 9.4-12.4 [facility] Comment on above: Order Comment: Campu s: M Performed By: #### L 200.18069 ####[facility] [id number] [place], [place] [address]Tx# [phone] Platelets (Bld) [#/Vol] 259 K/CU MM Normal 150-450 [facility] Comment on above: Order Comment: Campu s: M Performed By: #### L 200.75795 ####[facility] [id number] [place], [place] [address]Hu# [phone] RBC (Bld) [#/Vol] 2.85 M/CU MM Low 3.90-5.30 [facility] Comment on above: Order Comment: Campu s: M Performed By: #### L 200.61532 ####[facility] [id number] [place] [address]Dz# [phone] WBC (Bld) [#/Vol] 11.2 K/CUMM High 4.5-11.0 [facility] Comment on above: Order Comment: Campu s: M Performed By: #### L 200.21488 ####[facility] [id number] [place] [address]Xd# [phone] GFR ESTon 08-14-2020 IF AMER Greater than 60 Normal [facility] Comment on above: Order Comment: Campu s: M Performed By: #### L 500.89689, L500.22121, L500.55440 ####[facility] [id number] [place] [address]Vu# [phone] IF non-AFR AMER Greater than 60 Normal [facility] Comment on above: Order Comment: Campu s: M Performed By: #### L 500.72254, L500.52102, L500.57697 ####[facility] [id number] [place], [place] [address]Qx# [phone] MAGNESIUMon 08-14-2020 Magnesium [Mass/Vol] 1.6 MG/CL Normal 1.6-2.6 [facility] Comment on above: Order Comment: Campu s: M Performed By: #### L 500.82401, L500.94520, L500.70750 ####[facility] [id number] [place] [address]Nf# [phone] OTPNon 08-14-2020 OT Progress Note Normal [facility] OTPN Occupational Therapy Inpatient Treatment Note Medical Diagnosis: Acute hypoxemic respiratory failure, Syncope, pneumonia, hypothyroidism OCCUPATIONAL PROFILE AND HISTORY Demographics: Age: 70Y Gender: Female Primary Language: Rwandan Preferred Language: Rwandan Referring Service/Team: Cardiology Rehabilitation Precautions/Restrictio ns: NG tube, SOFT WRIST restraints, 50L high flow NC, Patient Report: REALLY, I WAS PLAYING BALL Patient/Caregiver Goals: None stated Pain: Patient unable [...] and G-Code Modifier = CN Functional Mobility: [facility] PATIENT NAME: ANDRE BLANCA [facility] Dr. Andrea MEDICAL REC #: [id number] [place] [address] ADMIT DATE: 07/27/20 SERVICE DATE: 08/14/20 Occupational [...] 2 persons. No equipment was used. 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 Andrea MEDICAL REC #: [id number] [place] [address] ADMIT DATE: 07/27/20 SERVICE DATE: 08/14/20 Occupational [...] contact the Acute Therapy Department at extension [phone] Communication to Nursing: No updates at this time. Location of Patient at End of Therapy Session: In chair, call light within reach Services: Total Billed: 38 minutes (Timed: 38, Untimed: 0) 23.00 Timed: [95941] ADL-HOME MANAGEMENT EA 15 MIN 15.00 Timed: [03790] THERAPEUTIC EXERCISE EA 15 MIN 0.00 Untimed: [] OT Treatment General ORDER Signed by: ROSEANNA LLAMAS 08/14/2020 14:51:22 - CoSigned By: KASEY MEZA 08/14/2020 3:42:39 PM [facility] PATIENT NAME: ANDRE BLANCA Dr. Andrea MEDICAL REC #: [id number] [place] [address] ADMIT DATE: 07/27/20 SERVICE DATE: 08/14/20 Occupational Therapy Progress Note ATTENDING PHY: Marta Horvath DO [facility] 08-14-2020 [facility] Patient Name: ANDRE BLANCA [facility] Date of : [address] [place], [place] [address] Unit Number: [id number] Progress Note-Hospitalist Patient Status: ADM IN Attending [...] confusion noted Diagnostic Data: Lab 24hr (CBC/BMP [facility]) 08/14/20 0451: [Embedded Image Not Available] Anion [...] count down to 11 today On Wed :p Aug 12, 2020 DELIA ADAM wrote Patient completed course of antibiotics with Unasyn for treatment of aspiration pneumonia. White blood cell count was down to 13.8 today. She is afebrile. Pulmonology is following On Tue :Aug 11, 2020 DELIA ADAM wrote Patient was under treatment for aspiration. Has been on Unasyn for antibiotic coverage. White blood cell count down to 15.7 today. Chest x-ray was repeated this morning and interstitial and alveolar opacities remain bilaterally without significant change per the radiologist read. On Mon 12:Aug 10, 2020 DELIA ADAM wrote Pulmonology/critical care [...] to the prior previous study. On Fariha :Aug 13, 2020 DELIA ADAM wrote Patient continues to have high oxygen needs. Most recent chest x-ray from 1229 was read as no significant interval change. Plan to repeat chest x-ray in a.m. On Wed 2:p Aug 12, 2020 DELIA ADAM wrote Patient [...] TASHI thought to be resolved On Fariha :a Aug 13, 2020 DELIA ADAM wrote Creatinine 0.56 on last check. TASHI currently thought to be resolved On Mon:Aug 12, 2020 DELIA ADAM wrote TASHI thought to be resolved creatinine 0.59 on last check On MonAug 11, 2020 DELIA ADAM wrote Patient with previous TASHI with creatinine up to 4.24, creatinine now 0.67 on last check. TASHI thought to be resolved On Mon:Aug 10, 2020 DELIA ADAM wrote TASHI thought to be improved, creatinine 0.72 on last check On Sun :p Aug 09, 2020 DELIA ADAM wrote TASHI [...] patient currently on tube feeds On Fariha 11:30a Aug 13, 2020 DELIA [...] to 65%. Patient had received fluids On Mon:Aug 10, 2020 DELIA ADAM wrote No current [...] in a.m. On Mon 12:Aug 10, 2020 DELIA ADAM wrote Potassium level [...] Delia Adam MD Verified/Reviewed by 08/14/20 1600 [facility] Progress Note-Hospitalist [facility] PROG.Rocael 08-14-2020 PROG.[facility] Patient Name: ANDRE BLANCA [address] Date of : [address] [place], [place] [address] Unit Number: [id number] Progress Note-Front Office Manager Patient Status: ADM IN Attending Doctor: Marta Horvath DO Service Date: 08/14/20 0725 Progress Note-Front Office Manager Subjective Subjective: Patient in bed. 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 Patient spent time at the [facility] according to son, that is the facility [...] Time Jayesh Loera MD Verified/Reviewed by 08/14/20 3683 [facility] Progress Note-Front Office Manager [facility] PTPNon 08-14-2020 PT Progress Note [facility] PTPN Physical Therapy Inpatient Treatment Note Medical Diagnosis: 1. Acute hypoxemic respiratory failure 2. Syncope 3. Hypothyroidism multiple rib fxs Demographics: Age: 70Y Gender: Female Primary Language: Rwandan Preferred Language: Rwandan Rehabilitation Precautions/Restrictio ns: NG tube, 4-point restraints, high flow NC, SUBJECTIVE Patient Report: I have to go to the bathroom. Pt continues w/ confusion, repeating herself. Oriented to self and medical building. Patient/Caregiver Goals: None stated Pain: Patient currently [...] G-Code Modifier = CK Vital Signs: Vitals: [facility] PATIENT NAME: ANDRE BLANCA [facility] Dr. Andrea MEDICAL REC #: [id number] [place] [address] ADMIT DATE: 07/27/20 SERVICE DATE: 08/14/20 Physical Therapy Progress Note ATTENDING PHY: Marta Horvath DO Oxygen Saturation: 88 % Interventions: Therapeutic Activities: Functional transfers and standing balance for BSC use as noted. Seated HEP x10 w/ cues for completion: APMARY, HARIS orellana. Pain Reassessment: No significant change in pain [...] contact the Acute Therapy Department at extension [phone] Location of Patient at End of Therapy Session: In chair, chair alarm in place, call light within reach [facility] PATIENT NAME: ANDRE BLANCA [facility] Dr. Andrea MEDICAL REC #: [id number] [place] [address] ADMIT DATE: 07/27/20 SERVICE DATE: 08/14/20 Physical Therapy Progress Note ATTENDING PHY: Marta Horvath DO Services: Total Billed: 25 minutes (Timed: 25, Untimed: 0) 25.00 Timed: [48447] THER ACTIVITIES / 15 MIN 0.00 Untimed: [] PT Treatment- General ORDER Signed by: Michel Cooper, 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 08/14/2020 16:20:50 - CoSigned By: SINDHU MONTANEZ, PT 08/14/2020 5:28:16 PM [facility] PATIENT NAME: ANDRE BLANCA [address] [facility] Dr. Andrea MEDICAL REC #: [id number] [place] [address] ADMIT DATE: 07/27/20 SERVICE DATE: 08/14/20 Physical Therapy Progress Note ATTENDING PHY: Marta Horvath DO Normal [facility] CBC W/DIFFon 08-13-2020 EOS ABS 0.55 K/CU MM High 0-0.5 [facility] Comment on above: Order Comment: Campu s: M Performed By: #### L 200.92343 #### [facility] [address] [place] [address] Eosinophils/100 WBC (Bld) 5.0 % Normal 0-5 [facility] Comment on above: Order Comment: Campu s: M Performed By: #### L 200.68390 #### [facility] [address] [place] [address] HYPO 2+ Normal [facility] Comment on above: Order Comment: Campu s: M Performed By: #### L 200.26217 #### [facility] [address] [place] [address] Lymphocytes (Bld) [#/Vol] 0.99 K/CU MM Normal 0.9-4.4 [facility] Comment on above: Order Comment: Campu s: M Performed By: #### L 200.34061 #### [facility] [address] [place], [place] [address] Lymphocytes/100 WBC (Bld) 9.0 % Low 20-40 [facility] Comment on above: Order Comment: Campu s: M Performed By: #### L 200.15679 #### [facility] [address] [place], [place] [address] MONO ABS 0.22 K/CU MM Normal 0.1-1.1 [facility] Comment on above: Order Comment: Campu s: M Performed By: #### L 200.33627 #### [facility] [address] [place] [address] Monocytes/100 WBC (Bld) 2.0 % Normal 2-[address] [facility] Comment on above: Order Comment: Campu s: M Performed By: #### L 200.50262 #### [facility] [address] [place] [address] NEUTROPHIL ABS 9.24 K/CU MM High 2.0-8.3 [facility] Comment on above: Order Comment: Campu s: M Performed By: #### L 200.52468 #### [facility] [address] [place] [address] Neutrophils/100 WBC (Bld) 84.0 % High 45-75 [facility] Comment on above: Order Comment: Campu s: M Performed By: #### L 200.95533 #### [facility] [address] [place] [address] Platelets (Bld) [#/Vol] ADEQUATE Normal M [facility] Comment on above: Order Comment: Campu s: M Performed By: #### L 200.35568 #### [facility] [address] [place] [address] PLT MORPH LARGE FORMS NOTED Normal [facility] Comment on above: Order Comment: Campu s: M Performed By: #### L 200.97163 #### [facility] [address] [place] [address] POLY 1+ Normal [facility] Comment on above: Order Comment: Campu s: M Performed By: #### L 200.31178 #### [facility] [address] [place] [address] Erythrocyte distribution width (RBC) [Ratio] 15.9 % High 11-14.5 [facility] Comment on above: Order Comment: Campu s: M Performed By: #### L 200.55973 #### [facility] [address] [place] [address] Hematocrit (Bld) [Volume fraction] 27.0 % Low 35.0-47.0 [facility] Comment on above: Order Comment: Campu s: M Performed By: #### L 200.57110 #### [facility] [address] [place] [address] Hemoglobin (Bld) [Mass/Vol] 8.2 g/dL Low 11.5-15.5 [facility] Comment on above: Order Comment: Campu s: M Performed By: #### L 200.04101 #### [facility] [address] [place] [address] MCHC (RBC) [Mass/Vol] 30.4 g/dL Low 32.0-36.0 [facility] Comment on above: Order Comment: Campu s: M Performed By: #### L 200.23357 #### [facility] [address] [place] [address] MCV (RBC) [Entitic vol] 98.9 fL Normal 80.0-99.0 [facility] Comment on above: Order Comment: Campu s: M Performed By: #### L 200.28411 #### [facility] [address] [place] [address] Nucleated RBC/100 WBC (Bld) [Ratio] 0.0 % Normal Less than 1 [facility] Comment on above: Order Comment: Campu s: M Performed By: #### L 200.48007 #### [facility] [address] [place] [address] Platelet mean volume (Bld) [Entitic vol] 11.5 fL Normal 9.4-12.4 [facility] Comment on above: Order Comment: Campu s: M Performed By: #### L 200.17492 #### [facility] [address] [address] Platelets (Bld) [#/Vol] 195 K/CU MM Normal 150-450 [facility] Comment on above: Order Comment: Campu s: M Performed By: #### L 200.62988 #### [facility] [address] [place] [address] RBC (Bld) [#/Vol] 2.73 M/CU MM Low 3.90-5.30 [facility] Comment on above: Order Comment: Campu s: M Performed By: #### L 200.19600 #### [facility] [address] [place] [address] WBC (Bld) [#/Vol] 11.0 K/CUMM Normal 4.5-11.0 [facility] Comment on above: Order Comment: Campu s: M Performed By: #### L 200.65632 #### [facility] [address] [place], [place] [address] CMPon 08-13-2020 Albumin [Mass/Vol] 1.8 g/dL Low 3.2-5.0 [facility] Comment on above: Order Comment: Campu s: M Performed By: #### L 500.93988, L500.54888 ####[facility] [id number] [place], [place] [address]Ru# [phone] Albumin/Globulin [Mass ratio] 0.5 {ratio} Low 0.8-2.0 [facility] Comment on above: Order Comment: Campu s: M Performed By: #### L 500.77857, L500.42807 ####[facility] [id number] [place], [place] [address]Ph# [phone] ALK PHOS 170 U/L High 45-117 [facility] Comment on above: Order Comment: Campu s: M Performed By: #### L 500.84507, L500.57803 ####[facility] [id number] [place], [place] [address]Io# [phone] ALT [Catalytic activity/Vol] 29 U/L Normal 13-61 [facility] Comment on above: Order Comment: Campu s: M Result Comment: RESU LTS MAY BE FALSELY DEPRESSED AFTER THE ADMINISTRATION OF SULFASALAZINE AND/OR SULFAPYRIDINE. Performed By: #### L 500.35738, L500.10095 ####[facility] [id number] [place], [place] [address]Rq# [phone] Anion gap [Moles/Vol] 3 mmol/L Low 5-16 [facility] Comment on above: Order Comment: Campu s: M Performed By: #### L 500.73010, L500.95934 ####[facility] [id number] [place], [place] [address]Xu# [phone] BILI TOTAL 0.30 MG/DL Normal 0.2-1.0 [facility] Comment on above: Order Comment: Campu s: M Performed By: #### L 500.69264, L500.50598 ####[facility] [id number] [place], [place] [address]Af# [phone] Calcium [Mass/Vol] 8.0 mg/dL Low 8.5-10.5 [facility] Comment on above: Order Comment: Campu s: M Result Comment: NOTE NEW NORMAL RANGE DUE TO REAGENT CHANGE Performed By: #### L 500.26185, L500.42138 ####[facility] [id number] [place], [place] [address]Xq# [phone] Chloride [Moles/Vol] 102 mmol/L Normal 98-107 [facility] Comment on above: Order Comment: Campu s: M Performed By: #### L 500.81083, L500.79055 ####[facility] [id number] [place], [place] [address]Nn# [phone] CO2 [Moles/Vol] 40.0 mmol/L High 21-32 [facility] Comment on above: Order Comment: Campu s: M Performed By: #### L 500.55653, L500.67412 ####[facility] [id number] [place], [place] [address]Io# [phone] Creatinine [Mass/Vol] 0.56 mg/dL Normal 0.510-0.950 [facility] Comment on above: Order Comment: Campu s: M Result Comment: Geraldine ents receiving either N-Acetylcysteine (NAC) or Metamizole prior to venipuncture, may have falsely depressed results. Performed By: #### L 500.07559, L500.86596 ####[facility] [id number] [place], [place] [address]Nv# [phone] Globulin (S) [Mass/Vol] 3.4 g/dL Normal 2.2-4.2 [facility] Comment on above: Order Comment: Campu s: M Performed By: #### L 500.27075, L500.78906 ####[facility] [id number] [place], [place] [address]Zb# [phone] Glucose [Mass/Vol] 185 mg/dL High 70-100 [facility] Comment on above: Order Comment: Campu s: M Result Comment: 70-1 00- Normal Fasting; 100-125 Impaired Fasting; greater than 126 on more than one result- Diabetes. ADA guidelines. Results may be falsely elevated after the administration of Sulfapyridine. Results may be falsely depressed after the administration of Sulfasalazine. Performed By: #### L 500.96773, L500.69583 ####[facility] [id number] [place], [place] [address]Dp# [phone] Potassium [Moles/Vol] 3.4 mmol/L Low 3.5-5.1 [facility] Comment on above: Order Comment: Campu s: M Performed By: #### L 500.94289, L500.28019 ####[facility] [id number] [place], [place] [address]Th# [phone] Protein [Mass/Vol] 5.2 g/dL Low 6.0-8.5 [facility] Comment on above: Order Comment: Campu s: M Performed By: #### L 500.96613, L500.03262 ####[facility] [id number] [place], [place] [address]Ba# [phone] SGOT (AST) 43 U/L High 8-34 [facility] Comment on above: Order Comment: Campu s: M Result Comment: RESU LTS MAY BE FALSELY DEPRESSED AFTER THE ADMINISTRATION OF SULFASALAZINE AND/OR SULFAPYRIDINE. Performed By: #### L 500.11704, L500.65416 ####[facility] [id number] [place], [place] [address]Tj# [phone] Sodium [Moles/Vol] 144 mmol/L Normal 136-145 [facility] Comment on above: Order Comment: Campu s: M Performed By: #### L 500.78204, L500.00405 ####[facility] [id number] [place], [place] [address]Da# [phone] Urea nitrogen [Mass/Vol] 11 mg/dL Normal 7-26 [facility] Comment on above: Order Comment: Campu s: M Performed By: #### L 500.64992, L500.12858 ####[facility] [id number] [place], [place] [address]Ar# [phone] Urea nitrogen/Creatinine [Mass ratio] 20 mg/mg Normal 15-24 [facility] Comment on above: Order Comment: Campu s: M Performed By: #### L 500.33009, L500.72412 ####[facility] [id number] [place], [place] [address]Lc# [phone] GFR ESTon 08-13-2020 IF AMER Greater than 60 Normal [facility] Comment on above: Order Comment: Campu s: M Performed By: #### L 500.51710, L500.29855 ####[facility] [id number] [place], [place] [address]Tq# [phone] IF non-AFR AMER Greater than 60 Normal [facility] Comment on above: Order Comment: Campu s: M Performed By: #### L 500.08331, L500.30767 ####[facility] [id number] [place], [place] [address]Lw# [phone] OTPNon 08-13-2020 OT Progress Note Normal [facility] OTPN Occupational Therapy Inpatient Treatment Note Medical Diagnosis: Acute hypoxemic respiratory failure, Syncope, pneumonia, hypothyroidism OCCUPATIONAL PROFILE AND HISTORY Demographics: Age: 70Y Gender: Female Primary Language: Rwandan Preferred Language: Rwandan Referring Service/Team: Cardiology Rehabilitation Precautions/Restrictio ns: NG tube, 4-point restraints, high flow NC, Patient Report: IM LEAVING, IM GOING, IM GOING PATIENT NON SENSICAL TALKING TO HERSELF Patient/Caregiver [...] CN Functional Mobility: Bed Mobility: Not assessed. [facility] PATIENT NAME: ANDRE BLANCA [facility] Dr. Andrea MEDICAL REC #: [id number] [place] [address] ADMIT DATE: 07/27/20 SERVICE DATE: 08/13/20 Occupational Therapy Progress Note ATTENDING GIRISHY: Marta Horvath DO Transfers: Transfers not assessed. [...] regarding this service, please contact the Acute [facility] PATIENT NAME: ANDRE BLANCA Dr. Andrea MEDICAL REC #: [id number] [place] [address] ADMIT DATE: 07/27/20 SERVICE DATE: 08/13/20 Occupational Therapy Progress Note ATTENDING PHY: Marta Horvath DO Therapy Department at extension [phone] Communication to Nursing: No updates at this time. Location of Patient at End of Therapy Session: In chair, call light within reach Services: Total Billed: 13 minutes (Timed: 13, Untimed: 0) 13.00 Timed: [20895] THERAPEUTIC EXERCISE EA 15 MIN 0.00 Untimed: [] OT Treatment General ORDER Signed by: ROSEANNA LLAMAS 08/13/2020 13:57:25 - CoSigned By: Cayla Rios OT 08/13/2020 4:08:33 PM [facility] PATIENT NAME: ANDRE BLANCA Dr. Andrea MEDICAL REC #: [id number] [place] [address] ADMIT DATE: 07/27/20 SERVICE DATE: 08/13/20 Occupational Therapy Progress Note ATTENDING PHY: Marta Horvath DO Normal [facility] ANDRE BLANCA [facility] [place] [place] Date of : [address] [place], [place] [address] Unit Number: [id number] Progress Note-Hospitalist Patient Status: ADM IN Attending [...] confusion noted Diagnostic Data: Lab 24hr (CBC/BMP [facility]) 08/13/20 0500: [Embedded Image Not Available] Anion [...] level in a.m. On MonAug 10, 2020 DELAI ADAM wrote Potassium level somewhat better overall [...] Delia Adam MD Verified/Reviewed by 08/13/20 1130 [facility] Progress Note-Hospitalist [facility] PROGZoran 08-13-2020 PROG.[facility] Patient Name: ANDRE BLANCA [address] Date of : [address] [address] Unit Number: [id number] Progress Note-Front Office Manager Patient Status: ADM IN Attending Doctor: Marta Horvath DO Service Date: 08/13/20 0748 Progress Note-Front Office Manager Subjective Subjective: Patient answering questions about self. Patient weaned off Precedex yesterday. Patient remains on high flow oxygen. 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 Patient spent time at the [facility] according to son, that is the facility [...] Jayesh Loera MD Verified/Reviewed by 08/13/20 0750 [facility] [address] [facility]Front Office [facility]-13-2020 PROG.PSYCH [facility] Patient Name: ANDRE BLANCA [address] [place] Date of : [address] [address] Unit Number: [id number] Progress Note-Psych Patient Status: DIS IN Attending Doctor: Marta Horvath DO Service Date: 08/13/20 0812 Progress Note - PSYCH Subjective: (2 ROS minimum) She says she is happy and anxious and worried. She says she slept through most of the night. Objective: General appearance is alert. She is oriented to person, 2020, and says she is in [place] in a medical facility. She feels happy, [...] 08/09 2200 AC 08/12 (MELATONIN TAB) TUBE 210 Menthol/Methyl [...] TUBE 2102 Quetiapine Fumarate 100 MG QHS 08/08 2200 AC 08/12 (SEROQUEL TAB) TUBE 2103 Risperidone 3 MG BID 08/09 2100 AC [...] Milind Gates MD Verified/Reviewed by 08/24/20 0743 [facility] Progress Note-Psych Normal [facility] PTPNon 08-13-2020 PT Progress Note [facility] PTPN Physical Therapy Inpatient Treatment Note Medical Diagnosis: 1. Acute hypoxemic respiratory failure 2. Syncope 3. Hypothyroidism multiple rib fxs Demographics: Age: 70Y Gender: Female Primary Language: Rwandan Preferred Language: Rwandan Rehabilitation Precautions/Restrictio ns: NG tube, 4-point restraints, high flow NC, SUBJECTIVE Patient Report: I remember you, you're doctor Jerry. Pt exhibiting confusion, but able to follow [...] Hospital Room: A lot of help needed [facility] PATIENT NAME: ANDRE BLANCA [facility] Dr. Andrea MEDICAL REC #: [id number] [place] [address] ADMIT DATE: 07/27/20 SERVICE DATE: 08/13/20 Physical [...] contact the Acute Therapy Department at extension [phone] [facility] MEDICAL REC #: [id number] [place] [address] ADMIT DATE: 07/27/20 SERVICE DATE: 08/13/20 Physical Therapy Progress Note ATTENDING PHY: Marta Horvath DO Location of Patient at End of Therapy Session: In chair, chair alarm in place, call light within reach Services: Total Billed: 30 minutes (Timed: 30, Untimed: 0) 30.00 Timed: [45377] GAIT TRAIN EA 15 MIN 0.00 Untimed: [] PT Treatment- General ORDER Signed by: Michel Cooper PTA 08/13/2020 13:26:12 - CoSigned By: Ioana Holden 08/13/2020 3:49:29 PM [facility] PAT[facility]: [facility] MEDICAL REC #: [id number] [place] [address] ADMIT DATE: 07/27/20 SERVICE DATE: 08/13/20 Physical Therapy Progress Note ATTENDING PHY: Marta Horvath DO [facility] Anion gap [Moles/Vol] 3 mmol/L Low 5-16 [facility] Comment on above: Order Comment: Maciel Rubio Performed By: #### L 500.12767, L500.69191, L500.05767, L500.67208 ####[facility] [id number] [place], [place] [address]Js# [phone] Calcium [Mass/Vol] 7.9 mg/dL Low 8.5-10.5 [facility] Comment on above: Order Comment: Campu s: M Result Comment: NOTE NEW NORMAL RANGE DUE TO REAGENT CHANGE Performed By: #### L 500.24152, L500.15168, L500.97303, L500.82876 ####[facility] [id number] [place], [place] [address]Kx# [phone] Chloride [Moles/Vol] 110 mmol/L High 98-107 [facility] Comment on above: Order Comment: Campu s: M Performed By: #### L 500.91914, L500.97578, L500.44366, L500.00945 ####[facility] [id number] [place], [place] [address]Zy# [phone] CO2 [Moles/Vol] 36.0 mmol/L High 21-32 [facility] Comment on above: Order Comment: Campu s: M Performed By: #### L 500.23298, L500.16960, L500.03390, L500.39353 ####[facility] [id number] [place], [place] [address]Uy# [phone] Creatinine [Mass/Vol] 0.59 mg/dL Normal 0.510-0.950 [facility] Comment on above: Order Comment: Campu s: M Result Comment: Geraldine ents receiving either N-Acetylcysteine (NAC) or Metamizole prior to venipuncture, may have falsely depressed results. Performed By: #### L 500.40308, L500.60620, L500.89067, L500.53475 ####[facility] [id number] [place], [place] [address]Ma# [phone] Glucose [Mass/Vol] 163 mg/dL High 70-100 [facility] Comment on above: Order Comment: Campu s: M Result Comment: 70-1 00- Normal Fasting; 100-125 Impaired Fasting; greater than 126 on more than one result- Diabetes. ADA guidelines. Results may be falsely elevated after the administration of Sulfapyridine. Results may be falsely depressed after the administration of Sulfasalazine. Performed By: #### L 500.80299, L500.03404, L500.71842, L500.24730 ####[facility] [id number] [place], [place] [address]Go# [phone] Potassium [Moles/Vol] 3.3 mmol/L Low 3.5-5.1 [facility] Comment on above: Order Comment: Campu s: M Performed By: #### L 500.29716, L500.14558, L500.71441, L500.30684 ####[address] [address]Ri# [phone] Sodium [Moles/Vol] 149 mmol/L High 136-145 [facility] Comment on above: Order Comment: Campu s: M Performed By: #### L 500.40475, L500.28659, L500.84772, L500.99639 ####[address] [address]Xl# [phone] Urea nitrogen [Mass/Vol] 13 mg/dL Normal 7-26 [facility] Comment on above: Order Comment: Campu s: M Performed By: #### L 500.74154, L500.57447, L500.04676, L500.42766 ####[address] [address]Ej# [phone] Urea nitrogen/Creatinine [Mass ratio] 22 mg/mg Normal 15-24 [facility] Comment on above: Order Comment: Campu s: M Performed By: #### L 500.24218, L500.00217, L500.16411, L500.25200 ####[address] [address]By# [phone] CBC W/DIFFon 08-12-2020 BAND ABS 0.14 K/CU MM Normal [facility] Comment on above: Order Comment: Campu s: M Performed By: #### L 200.23575 ####[facility] [id number] [place] [address]Ph# [phone] Band form neutrophils/100 WBC (Bld) 1.0 % Normal 0-7 [facility] Comment on above: Order Comment: Campu s: M Performed By: #### L 200.25076 ####[facility] [id number] [place] [address]Xb# [phone] EOS ABS 0.97 K/CU MM High 0-0.5 [facility] Comment on above: Order Comment: Campu s: M Performed By: #### L 200.89345 ####[place] [address]Ph# [phone] Eosinophils/100 WBC (Bld) 7.0 % High 0-5 [facility] Comment on above: Order Comment: Campu s: M Performed By: #### L 200.29436 ####[facility] [id number] [place], [place] [address]Ph# [phone] HYPO 2+ Normal [facility] Comment on above: Order Comment: Campu s: M Performed By: #### L 200.03025 ####[facility] [id number] [place], [place] [address]Ph# [phone] Lymphocytes (Bld) [#/Vol] 0.83 K/CU MM Low 0.9-4.4 [facility] Comment on above: Order Comment: Campu s: M Performed By: #### L 200.03111 ####[facility] [id number] [place], [place] [address]Ph# [phone] Lymphocytes/100 WBC (Bld) 6.0 % Low 20-40 [facility] Comment on above: Order Comment: Campu s: M Performed By: #### L 200.99081 ####[facility] [id number] [place], [place] [address]Ph# [phone] META % 1.0 % Normal [facility] Comment on above: Order Comment: Campu s: M Performed By: #### L 200.25867 ####[facility] [id number] [place], [place] [address]Ux# [phone] META ABS 0.14 K/CU MM Normal [facility] Comment on above: Order Comment: Campu s: M Performed By: #### L 200.60997 ####[facility] [id number] [place] [address]Kh# [phone] MONO ABS 0.28 K/CU MM Normal 0.1-1.1 [facility] Comment on above: Order Comment: Campu s: M Performed By: #### L 200.69324 ####[place] [address]Ph# [phone] Monocytes/100 WBC (Bld) 2.0 % Normal 2-10 M [facility] [facility] Comment on above: Order Comment: Campu s: M Performed By: #### L 200.36408 ####[place] [id number]# [phone] MYELO ABS 0.28 K/CU MM Normal [facility] Comment on above: Order Comment: Campu s: M Performed By: #### L 200.41230 ####[facility] [id number] [place] [address] 05388Sm# [phone] MYELOCYTE % 2.0 % Normal [facility] Comment on above: Order Comment: Campu s: M Performed By: #### L 200.53624 ####[facility] [id number] [place], [place] [address]Ph# [phone] NEUTROPHIL ABS 11.18 K/CU MM High 2.0-8.3 [facility] Comment on above: Order Comment: Campu s: M Performed By: #### L 200.54428 ####[facility] [id number] [place] [address] 99[address]Eb# [phone] Neutrophils/100 WBC (Bld) 81.0 % High 45-75 [facility] [place] Comment on above: Order Comment: Campu s: M Performed By: #### L 200.68843 ####[facility] [id number] [place], [place] [address]Wh# [phone] Platelets (Bld) [#/Vol] ADEQUATE Normal [facility] Comment on above: Order Comment: Campu s: M Performed By: #### L 200.21229 ####[facility] [id number] [place], [place] [address]Sn# [phone] PLT MORPH LARGE FORMS NOTED Normal [facility] Comment on above: Order Comment: Campu s: M Performed By: #### L 200.32792 ####[facility] [id number] [place] [address] 475[address]Ks# [phone] POLY 1+ Normal [facility] Comment on above: Order Comment: Campu s: M Performed By: #### L 200.82621 ####[facility] [id number] [place], [place] [address]Ph# [phone] TOXIC GRAN PRESENT Normal [facility] Comment on above: Order Comment: Campu s: M Performed By: #### L 200.85535 ####[facility] [id number] [place] [address]Fv# [phone] Erythrocyte distribution width (RBC) [Ratio] 15.9 % High 11-14.5 [facility] Comment on above: Order Comment: Campu s: M Performed By: #### L 200.59304 ####[facility] [id number] [place], [place] [address]Pk# [phone] Hematocrit (Bld) [Volume fraction] 27.2 % Low 35.0-47.0 [facility] Comment on above: Order Comment: Campu s: M Performed By: #### L 200.62798 ####[facility] [id number] [place], [place] [address]Ja# [phone] Hemoglobin (Bld) [Mass/Vol] 8.3 g/dL Low 11.5-15.5 [facility] Comment on above: Order Comment: Campu s: M Performed By: #### L 200.33576 ####[facility] [id number] [place], [place] [address]Nz# [phone] MCHC (RBC) [Mass/Vol] 30.5 g/dL Low 32.0-36.0 [facility] Comment on above: Order Comment: Campu s: M Performed By: #### L 200.84669 ####[facility] [id number] [place] [address]Vm# [phone] MCV (RBC) [Entitic vol] 97.5 fL Normal 80.0-99.[address] [facility] Comment on above: Order Comment: Campu s: M Performed By: #### L 200.75314 ####[facility] [id number] [place] [address] 226[address]Re# [phone] Nucleated RBC/100 WBC (Bld) [Ratio] 0.1 % Normal Less than 1 [facility] Comment on above: Order Comment: Campu s: M Performed By: #### L 200.99486 ####[facility] [id number] [place] [address] 75[address]Fc# [phone] Platelet mean volume (Bld) [Entitic vol] 11.9 fL Normal 9.4-12.4 [facility] Comment on above: Order Comment: Campu s: M Performed By: #### L 200.26467 ####[facility] [id number] [place] [address]Oj# [phone] Platelets (Bld) [#/Vol] 174 K/CU MM Normal 150-450 [facility] Comment on above: Order Comment: Campu s: M Performed By: #### L 200.24059 ####[facility] [id number] [place] [address]Ex# [phone] RBC (Bld) [#/Vol] 2.79 M/CU MM Low 3.90-5.30 [facility] Comment on above: Order Comment: Campu s: M Performed By: #### L 200.83564 ####[facility] [id number] [place], [place] [address]Pa# [phone] WBC (Bld) [#/Vol] 13.8 K/CUMM High 4.5-11.0 [facility] Comment on above: Order Comment: Maciel s: M Performed By: #### L 200.84735 ####[facility] [id number] [place], [place] [address]Zz# [phone] CONS.PSYCHon 08-12-2020 CONS.PSYCH [facility] Patient Name: ANDRE BLANCA [address] [facility] Date of : [address] [place], [place] [address] Unit Number: [id number] CONSULTATION-PSYCH Patient Status: DIS IN Attending Doctor: [...] She apparently has been going to the [place] clinic. She has been sleeping poorly at [...] Rate 40L75% 08/12 700 Pulse 97 08/12 700 Resp 18 08/12 700 Temp 99.0 08/12 0530 Mental Status Exam This is a tired looking woman who is pleasant and cooperative and answers questions as well as she can. Physical strength has been decreased. She is oriented to person but says it is September 1927 and she is in [place]. At times in the hospital she has [...] GASTON URIBE on 04/16/17 195 Last Action: Reviewed on 08/04/201617 by GLORIA [...] her. She has a son up in [place] who visits once a month. She denies [...] Milind Gates MD Verified/Reviewed by 08/24/20 0743 [facility] CONSULTATION-PSYCH [facility] [place] GFR ESTon 08-12-2020 IF AMER Greater than 60 [facility] Comment on above: Order Comment: Campu s: M Performed By: #### L 500.84765, L500.23921, L500.03623, L500.28499 ####[facility] [id number] [place], [place] [address]Bs# [phone] IF non-AFR AMER Greater than 60 [facility] Comment on above: Order Comment: Campu s: M Performed By: #### L 500.12931, L500.64470, L500.38820, L500.24120 ####[facility] [id number] [place], [place] [address]Rn# [phone] IONIZED CAon 08-12-2020 IONIZED CA 1.03 MMOL/L Low 1.16-1.32 [facility] Comment on above: Order Comment: Campu s: M Performed By: #### L 200.45692 #### [facility] LABORATORY [address] [place] [address] MAGNESIUMon 08-12-2020 Magnesium [Mass/Vol] 1.6 MG/CL Normal 1.6-2.6 [facility] Comment on above: Order Comment: Campu s: M Performed By: #### L 500.48911, L500.00329, L500.93750, L500.42516 ####[facility] [id number] [place], [place] [address]Ze# [phone] OTPNon 08-12-2020 OT Progress Note Normal [facility] OTPN Occupational Therapy Inpatient Missed Visit Note Location: Bedside. Attempted to visit patient for therapy, but was unable for the following reasons: Patient is unable to arouse. Clinical Reason sleeping in chair Return Plan: Will return as soon as possible for another attempt. If there are any questions regarding this service, please contact the Acute Therapy Department at extension [phone] Services: Total Billed: 0 minutes (Timed: 0, Untimed: 0) 0.00 Untimed: [] OT Treatment General ORDER Signed by: SIMONA LLAMAS/Asuncion 08/12/2020 14:07:10 - CoSigned By: VASHTI Montejo OTR/Asuncion 08/12/2020 3:55:22 PM [facility] PATIENT NAME: ANDRE BLANCA [facility] Dr. Andrea MEDICAL REC #: [id number] [place] [address] ADMIT DATE: 07/27/20 SERVICE DATE: 08/12/20 Occupational Therapy Progress Note ATTENDING PHY: Marta Horvath DO Normal [facility] PHOSon 08-12-2020 Phosphate [Mass/Vol] 2.50 mg/dL Normal 2.5-4.9 [facility] Comment on above: Order Comment: Campu s: M Result Comment: Elev ated m-protein (paraprotein) levels in the serum may be exhibited in patients with monoclonal gammopathies, causing falsely elevated inorganic phosphorus results. Performed By: #### L 500.60180, L500.56659, L500.49447, L500.92510 ####[facility] [id number] [place], [place] [address]Cf# [phone] PROG [facility] 08-12-2020 PROG [facility] Patient Name: ANDRE BLANCA [address] [facility] Date of : [address] [place] [address] Unit Number: [id number] Progress Note-Hospitalist Patient Status: ADM IN Attending [...] Diagnostic Data: Lab 24hr (CBC/BMP Fishbone) 08/12/20 0409: Ionized [...] Delia Adam MD Verified/Reviewed by 08/12/20 1422 [facility] Progress Note-Hospitalist [facility] PROG.INTEStacey 08-12-2020 PROG.[facility] Patient Name: ANDRE BLANCA [address] Date of : [address] [place] [address] Unit Number: [id number] Progress Note-Front Office Manager Patient Status: ADM IN Attending Doctor: Marta Horvath DO Service Date: 08/12/20 0751 Progress Note-Front Office Manager Subjective Subjective: Patient still on high flow oxygen at this time. Patient is delirious, but seems a little more oriented today. Objective Vital Signs: Vital Signs (Last) Result Date Time Pulse Ox 99 08/12 0700 B/P 127/69 08/12 0700 B/P Mean 83 08/12 0700 O2 Delivery HIGH FLOW NC 08/12 0700 O2 Flow Rate 40L75% 08/12 0700 Pulse 97 08/12 0700 Resp 18 08/12 [...] Status Admin Acetaminophen 500 MG Q6HPRN PRN 08/040 AC 08/12 (TYLENOL ORAL LIQ) TUBE 0437 [...] 08/11 1200 AC 08/11 (MIRALAX PACKT) TUBE 121 Pravastatin Sodium 40 MG QHS 08/04 2200 [...] Recent Impressions (48H) RADIOLOGY - PORTABLE CHEST 08/110 Report Impression - Status: SIGNED Entered: 08/11/2020735 IMPRESSION: No significant interval change. 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 Patient spent time at the [facility] according to son, that is the facility [...] Jayesh Loera MD Verified/Reviewed by 08/12/20 0755 [facility] Progress Note-Front Office Manager [facility] PTPNon 08-12-2020 PT Progress Note [facility] PTPN Physical Therapy Inpatient Treatment Note Medical Diagnosis: 1. Acute hypoxemic respiratory failure 2. Syncope 3. Hypothyroidism multiple rib fxs Demographics: Age: 70Y Gender: Female Primary Language: Rwandan Preferred Language: [facility] [facility] Precautions/Restrictio ns: NG tube, 4-point restraints, high flow NC, SUBJECTIVE Patient Report: I'm okay Confusion noted. Repeating words and talking to herself in room. Patient/Caregiver Goals: None stated Pain: Patient currently without complaints of pain. OBJECTIVE General Observation: Nursing okayed session. Pt in bed, lethargic and mumbling unintelligibly to herself. Oriented to self and hospital. Difficulty following commands. Functional Activities After Today's Session: Transfers: Mod A x2 for supine > sit, assist for LEs/trunk and scooting to EOB, pt required max cuing to sequence movements to assist w/ transfers. Fair sitting balance on EOB, CGA. Patient transferred sit to/from stand requiring moderate assistance of 1 person. 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 Curb Negotiation: Not assessed. [facility] PATIENT NAME: ANDRE BLANCA [facility] Dr. Andrea MEDICAL REC #: [id number] [place] [id number] ADMIT DATE: 07/27/20 SERVICE DATE: 08/12/20 Physical [...] to include: gait, transfes, endurance, balance, safety [facility] PATIENT NAME: ANDRE BLANCA Dr. Andrea MEDICAL REC #: [id number] [place] [address] ADMIT DATE: 07/27/20 SERVICE DATE: 08/12/20 Physical [...] contact the Acute Therapy Department at extension [phone] Location of Patient at End of Therapy Session: In chair, chair alarm in place, call light within reach Services: Total Billed: 38 minutes (Timed: 38, Untimed: 0) 38.00 Timed: [29756] THER ACTIVITIES / 15 MIN 0.00 Untimed: [] PT Treatment- General ORDER Signed by: Michel Cooper PTA 08/12/2020 13:20:17 - CoSigned By: Ioana Holden 08/12/2020 2:00:39 PM [facility] PATIENT NAME: ANDRE BLANCA Dr. Andrea MEDICAL REC #: [id number] [place] [address] ADMIT DATE: 07/27/20 SERVICE DATE: 08/12/20 Physical Therapy Progress Note ATTENDING PHY: Marta Horvath DO Normal [facility] STOOL PANEL GIon 08-12-2020 ADENOVIRUS PCR NOT DETECTED Normal NOTDETECTED [facility] Comment on above: Order Comment: Abundiou s: MSPECIMEN SOURCE: STOOL Performed By: #### L 780.43300 ####[facility] [id number] [place], [place] [address]Es# [phone] ASTROVIRUS PCR NOT DETECTED Normal NOTDETECTED [facility] [place] Comment on above: Order Comment: Campu s: MSPECIMEN SOURCE: STOOL Result Comment: Viru s, bacteria, and parasite nucleic acid may persist in vivo independently of organism viability. Additionally, some organisms may be carried asymptomatically. Detection of organism targets does not imply that the corresponding organisms are infections or are the causative agents for clinical symptoms. Performed By: #### L 780.54083 ####[facility] [id number] [place], [place] [address]Yh# [phone] CAMPY NOT DETECTED Normal NOTDETECTED [facility] [place] Comment on above: Order Comment: Campu s: MSPECIMEN SOURCE: STOOL Performed By: #### L 780.08500 ####[facility] [id number] [place] [address]Pd# [phone] CRYPTOSPORIDIUM NOT DETECTED Normal NOTDETECTED [facility] [place] Comment on above: Order Comment: Campu s: MSPECIMEN SOURCE: STOOL Performed By: #### L 780.45680 ####[facility] [id number] [place] [address] 17[address]Ur# [phone] CYCLOSPORA PCR NOT DETECTED Normal NOTDETECTED [facility] [place] Comment on above: Order Comment: Campu s: MSPECIMEN SOURCE: STOOL Performed By: #### L 780.05109 ####[facility] [id number] [place] [address]Qb# [phone] E.COLI O157 PCR NOT DETECTED Normal NOTDETECTED [facility] [place] Comment on above: Order Comment: Campu s: MSPECIMEN SOURCE: STOOL Performed By: #### L 780.84991 ####[facility] [id number] [place] [address]Ac# [phone] E.HISTOLYTICA NOT DETECTED Normal NOTDETECTED [facility] [place] Comment on above: Order Comment: Campu s: MSPECIMEN SOURCE: STOOL Performed By: #### L 780.28839 ####[facility] [id number] [place], [place] [address]Pe# [phone] EAEC E COLI PCR NOT DETECTED Normal NOTDETECTED [facility] [place] Comment on above: Order Comment: Campu s: MSPECIMEN SOURCE: STOOL Performed By: #### L 780.24559 ####[facility] [id number] [place], [place] [address]Jt# [phone] EPEC E COLI PCR NOT DETECTED Normal NOTDETECTED [facility] [place] Comment on above: Order Comment: Campu s: MSPECIMEN SOURCE: STOOL Performed By: #### L 780.53454 ####[facility] [id number] [place], [place] [address]Pw# [phone] ETEC E.COLI PCR NOT DETECTED Normal NOTDETECTED [facility] [place] Comment on above: Order Comment: Campu s: MSPECIMEN SOURCE: STOOL Performed By: #### L 780.80866 ####[facility] [id number] [place] [address]Ik# [phone] GIARDIA CARTER PCR NOT DETECTED Normal NOTDETECTED [facility] [place] Comment on above: Order Comment: Abundiou s: MSPECIMEN SOURCE: STOOL Performed By: #### L 780.00233 ####[facility] [id number] [place], [place] [address]Qh# [phone] NOROVIRUS PCR NOT DETECTED Normal NOTDETECTED [facility] [place] Comment on above: Order Comment: Abundiou s: MSPECIMEN SOURCE: STOOL Performed By: #### L 780.13227 ####[facility] [id number] [place], [place] [address]Qs# [phone] PLESIOMONAS PCR NOT DETECTED Normal NOTDETECTED [facility] [place] Comment on above: Order Comment: Abundiou s: MSPECIMEN SOURCE: STOOL Performed By: #### L 780.31989 ####[facility] [id number] [place], [place] [address]Hh# [phone] ROTAVIRUS A PCR NOT DETECTED Normal NOTDETECTED [facility] [place] Comment on above: Order Comment: Campu s: MSPECIMEN SOURCE: STOOL Performed By: #### L 780.22104 ####[facility] [id number] [place], [place] [address]Rw# [phone] SALMONELLA PCR NOT DETECTED Normal NOTDETECTED [facility] [place] Comment on above: Order Comment: Campu s: MSPECIMEN SOURCE: STOOL Performed By: #### L 780.58966 ####[facility] [id number] [place] [address]Xw# [phone] SAPOVIRUS PCR NOT DETECTED Normal NOTDETECTED [facility] [place] Comment on above: Order Comment: Campu s: MSPECIMEN SOURCE: STOOL Performed By: #### L 780.01505 ####[facility] [id number] [place] [address] 347[address]Om# [phone] SHIGATOXIN ECOL NOT DETECTED Normal NOTDETECTED [facility] [place] Comment on above: Order Comment: Campu s: MSPECIMEN SOURCE: STOOL Performed By: #### L 780.96800 ####[facility] [id number] [place] [address]Vn# [phone] SHIGELLA/EIEC NOT DETECTED Normal NOTDETECTED [facility] [place] Comment on above: Order Comment: Campu s: MSPECIMEN SOURCE: STOOL Performed By: #### L 780.73989 ####[facility] [id number] [place], [place] [address]Fn# [phone] V CHOLERAE PCR NOT DETECTED Normal NOTDETECTED [facility] [place] Comment on above: Order Comment: Campu s: MSPECIMEN SOURCE: STOOL Performed By: #### L 780.80072 ####[facility] [id number] [place] [address] 237[address]Oz# [phone] VIBRIO PCR NOT DETECTED Normal NOTDETECTED [facility] [place] Comment on above: Order Comment: Campu s: MSPECIMEN SOURCE: STOOL Performed By: #### L 780.71407 ####[facility] [id number] [place] [address]Bv# [phone] YERSINIA PCR NOT DETECTED Normal NOTDETECTED [facility] Comment on above: Order Comment: Campu s: MSPECIMEN SOURCE: STOOL Performed By: #### L 780.95726 ####[facility] [id number] [place] [address]Ph# [phone] ABGPEGLAon 08-11-2020 ABG BE 7.0 MML/L High -2.0-2.0 [facility] Comment on above: Order Comment: Campu s: MCKENNA BLOOD GAS? YPatient's Anticoagulant? UNKNOWN Performed By: #### L 100.11655 ####[facility] [id number] [place], [place] [address]Ph# [phone] ABG COHBA 0.2 % Normal 0-10 [facility] Comment on above: Order Comment: Campu s: MCKENNA BLOOD GAS? YPatient's Anticoagulant? UNKNOWN Performed By: #### L 100.44073 ####[facility] [id number] [place], [place] [address]Ph# [phone] ABG GLU 174 MG/DL High 60-80 [facility] Comment on above: Order Comment: Campu s: MCKENNA BLOOD GAS? YPatient's Anticoagulant? UNKNOWN Performed By: #### L 100.81010 ####[facility] [id number] [place] [address]Ph# [phone] ABG HCO3 32.5 MMOL/L High 22-26 [facility] Comment on above: Order Comment: Campu s: MCKENNA BLOOD GAS? YPatient's Anticoagulant? UNKNOWN Performed By: #### L 100.86995 ####[facility] [id number] [place] [address]Ph# [phone] ABG MET 0.3 % Low 0.4-1.5 [facility] Comment on above: Order Comment: Campu s: MCKENNA BLOOD GAS? YPatient's Anticoagulant? UNKNOWN Performed By: #### L 100.62054 ####[facility] [id number] [place], [place] [address]Ds# [phone] ABG O2 CAPACITY 12.6 mL/dL Normal [facility] Comment on above: Order Comment: Campu s: MCKENNA BLOOD GAS? YPatient's Anticoagulant? UNKNOWN Performed By: #### L 100.83182 ####[facility] [id number] [place], [place] [address]Dp# [phone] ABG O2 CONTENT 11.9 mL/dL Low 15.7-21.6 [facility] Comment on above: Order Comment: Campu s: MCKENNA BLOOD GAS? YPatient's Anticoagulant? UNKNOWN Performed By: #### L 100.76769 ####[facility] [id number] [place] [address]Xx# [phone] ABG O2HB SAT 92.7 % Normal 90-100 [facility] Comment on above: Order Comment: Campu s: MCKENNA BLOOD GAS? YPatient's Anticoagulant? UNKNOWN Performed By: #### L 100.53647 ####[facility] [id number] [place] [address]Iy# [phone] ABG PCO2 52.4 MMHG High 35-45 [facility] [place] Comment on above: Order Comment: Campu s: MCKENNA BLOOD GAS? YPatient's Anticoagulant? UNKNOWN Performed By: #### L 100.61431 ####[facility] [id number] [place] [address]Zy# [phone] ABG PH 7.41 Normal 7.35-7.45 [facility] Comment on above: Order Comment: Campu s: MCKENNA BLOOD GAS? YPatient's Anticoagulant? UNKNOWN Performed By: #### L 100.40504 ####[facility] [id number] [place] [address]Ik# [phone] ABG PO2 71 MMHG Low 80-100 [facility] Comment on above: Order Comment: Campu s: MCKENNA BLOOD GAS? YPatient's Anticoagulant? UNKNOWN Performed By: #### L 100.71667 ####[facility] [id number] [place] [address]Ip# [phone] DOUG TEST Positive Normal [facility] Comment on above: Order Comment: Campu s: MCKENNA BLOOD GAS? YPatient's Anticoagulant? UNKNOWN Performed By: #### L 100.69138 ####[facility] [id number] [place] [address]Ph# [phone] aPTT Coag (Bld) [Time] 37.2 C Normal [facility] Comment on above: Order Comment: Campu s: MCKENNA BLOOD GAS? YPatient's Anticoagulant? UNKNOWN Performed By: #### L 100.60743 ####[facility] [id number] [place], [place] [address]Ph# [phone] EQUIPMENT HIGH FLOW CANNULA Normal [facility] Comment on above: Order Comment: Campu s: MCKENNA BLOOD GAS? YPatient's Anticoagulant? UNKNOWN Performed By: #### L 100.79929 ####[facility] [id number] [place], [place] [address]Ph# [phone] FIO2 52 % Normal [facility] Comment on above: Order Comment: Campu s: MCKENNA BLOOD GAS? YPatient's Anticoagulant? UNKNOWN Performed By: #### L 100.91362 ####[facility] [id number] [place], [place] [address]Ph# [phone] Hemoglobin (Bld) [Mass/Vol] 6.8 % High 0-5 [facility] Comment on above: Order Comment: Campu s: MCKENNA BLOOD GAS? YPatient's Anticoagulant? UNKNOWN Performed By: #### L 100.48676 ####[facility] [id number] [place], [place] [address]Uk# [phone] Hemoglobin (Bld) [Mass/Vol] 9.1 g/dL Low 10-16 [facility] Comment on above: Order Comment: Campu s: MCKENNA BLOOD GAS? YPatient's Anticoagulant? UNKNOWN Performed By: #### L 100.57647 ####[facility] [id number] [place] [address]Ph# [phone] IONIZED CA 1.10 MMOL/L Low 1.13-1.32 [facility] Comment on above: Order Comment: Campu s: MCKENNA BLOOD GAS? YPatient's Anticoagulant? UNKNOWN Performed By: #### L 100.11294 ####[facility] [id number] [place], [place] [address]Da# [phone] LACTATE BLOOD 0.94 MMOL/L Normal 0.40-2.00 [facility] Comment on above: Order Comment: Campu s: MCKENNA BLOOD GAS? YPatient's Anticoagulant? UNKNOWN Performed By: #### L 100.73420 ####[facility] [id number] [place] [id number]# [phone] LITERFLOW 45.00 L/M [facility] Comment on above: Order Comment: Campu s: MCKENNA BLOOD GAS? YPatient's Anticoagulant? UNKNOWN Performed By: #### L 100.45770 ####[facility] [id number] [place], [place] [address]Ph# [phone] Oxygen saturation in Blood 94 % [facility] Comment on above: Order Comment: Campu s: MCKENNA BLOOD GAS? YPatient's Anticoagulant? UNKNOWN Performed By: #### L 100.32171 ####[facility] [id number] [place], [place] [address]Lf# [phone] Potassium [Moles/Vol] 3.2 mmol/L Low 3.5-5.0 [facility] Comment on above: Order Comment: Campu s: MCKENNA BLOOD GAS? YPatient's Anticoagulant? UNKNOWN Performed By: #### L 100.63746 ####[facility] [id number] [place], [place] [address]Wd# [phone] SAMPLE SITE L RADIAL Normal [facility] Comment on above: Order Comment: Campu s: MCKENNA BLOOD GAS? YPatient's Anticoagulant? UNKNOWN Performed By: #### L 100.72485 ####[facility] [id number] [place], [place] [address]Yn# [phone] SAMPLE TYPE ARTERIAL Normal [facility] Comment on above: Order Comment: Campu s: MCKENNA BLOOD GAS? YPatient's Anticoagulant? UNKNOWN Performed By: #### L 100.06252 ####[facility] [id number] [place], [place] [address]Ph# [phone] Sodium [Moles/Vol] 147 mmol/L Normal 136-148 [facility] Comment on above: Order Comment: Campu s: MCKENNA BLOOD GAS? YPatient's Anticoagulant? UNKNOWN Performed By: #### L 100.99156 ####[facility] [id number] [place] [address]# [phone] CBC W/DIFFon 08-11-2020 BAND ABS 0.94 K/CU MM Normal [facility] Comment on above: Order Comment: Campu s: M Performed By: #### L 200.47804 ####[facility] [id number] [place] [address]# [phone] Band form neutrophils/100 WBC (Bld) 6.0 % Normal 0-7 [facility] Comment on above: Order Comment: Campu s: M Performed By: #### L 200.78302 ####[facility] [id number] [place], [place] [address]Ph# [phone] EOS ABS 0.94 K/CU MM High 0-0.5 [facility] Comment on above: Order Comment: Campu s: M Performed By: #### L 200.08725 ####[facility] [id number] [place], [place] [address]Ph# [phone] Eosinophils/100 WBC (Bld) 6.0 % High 0-5 [facility] Comment on above: Order Comment: Campu s: M Performed By: #### L 200.57289 ####[facility] [id number] [place], [place] [address]Ph# [phone] HYPO 1+ Normal [facility] Comment on above: Order Comment: Campu s: M Performed By: #### L 200.34135 ####[facility] [id number] [place] [address]Ph# [phone] Lymphocytes (Bld) [#/Vol] 0.31 K/CU MM Low 0.9-4.4 [facility] Comment on above: Order Comment: Campu s: M Performed By: #### L 200.44067 ####[place] [address]Ph# [phone] Lymphocytes/100 WBC (Bld) 2.0 % Low 20-40 [facility] Comment on above: Order Comment: Campu s: M Performed By: #### L 200.96124 ####[place] [address]Ph# [phone] META % 1.0 % Normal [facility] Comment on above: Order Comment: Campu s: M Performed By: #### L 200.44519 ####[place] [address]Ph# [phone] META ABS 0.16 K/CU MM Normal [facility] Comment on above: Order Comment: Campu s: M Performed By: #### L 200.97583 ####[place] [address]Ph# [phone] MONO ABS 0.63 K/CU MM Normal 0.1-1.1 [facility] Comment on above: Order Comment: Campu s: M Performed By: #### L 200.09541 ####[facility] [id number] [place], [place] [address]Ph# [phone] Monocytes/100 WBC (Bld) 4.0 % Normal 2-10 M [facility] Comment on above: Order Comment: Campu s: M Performed By: #### L 200.88267 ####[facility] [id number] [place], [place] [address]Ph# [phone] MYELO ABS 0.16 K/CU MM Normal [facility] Comment on above: Order Comment: Campu s: M Performed By: #### L 200.60220 ####[facility] [id number] [place], [place] [address]Dz# [phone] MYELOCYTE % 1.0 % Normal [facility] Comment on above: Order Comment: Campu s: M Performed By: #### L 200.46331 ####[facility] [id number] [place], [place] [address]Rf# [phone] NEUTROPHIL ABS 12.56 K/CU MM High 2.0-8.3 [facility] Comment on above: Order Comment: Campu s: M Performed By: #### L 200.58670 ####[facility] [id number] [place] [address]Dd# [phone] Neutrophils/100 WBC (Bld) 80.0 % High 45-75 [facility] Comment on above: Order Comment: Campu s: M Performed By: #### L 200.68780 ####[facility] [id number] [place], [place] [address]Ph# [phone] Platelets (Bld) [#/Vol] ADEQUATE [facility] Comment on above: Order Comment: Campu s: M Performed By: #### L 200.86774 ####[facility] [id number] [place] [address]Hy# [phone] PLT MORPH LARGE FORMS NOTED Normal [facility] Comment on above: Order Comment: Campu s: M Performed By: #### L 200.48216 ####[facility] [id number] [place] [address]Km# [phone] POLY 1+ Normal [facility] Comment on above: Order Comment: Campu s: M Performed By: #### L 200.81366 ####[facility] [id number] [place], [place] [address]Ug# [phone] TOXIC GRAN PRESENT Normal [facility] Comment on above: Order Comment: Campu s: M Performed By: #### L 200.70796 ####[facility] [id number] [place], [place] [address]Ed# [phone] Erythrocyte distribution width (RBC) [Ratio] 16.0 % High 11-14.5 [facility] Comment on above: Order Comment: Campu s: M Performed By: #### L 200.75260 ####[address] [address]Id# [phone] Hematocrit (Bld) [Volume fraction] 26.1 % Low 35.0-47.0 [facility] Comment on above: Order Comment: Campu s: M Performed By: #### L 200.98623 ####[address] [address]Ph# [phone] Hemoglobin (Bld) [Mass/Vol] 8.0 g/dL Low 11.5-15.5 [facility] Comment on above: Order Comment: Campu s: M Performed By: #### L 200.09791 ####[address] [address]Th# [phone] MCHC (RBC) [Mass/Vol] 30.7 g/dL Low 32.0-36.0 [facility] Comment on above: Order Comment: Campu s: M Performed By: #### L 200.30699 ####[address] [address]Tk# [phone] MCV (RBC) [Entitic vol] 96.3 fL Normal 80.0-99.0 [facility] Comment on above: Order Comment: Campu s: M Performed By: #### L 200.32761 ####[facility] [id number] [place] [address]Na# [phone] Nucleated RBC/100 WBC (Bld) [Ratio] 0.0 % Normal Less than 1 [facility] Comment on above: Order Comment: Campu s: M Performed By: #### L 200.61744 ####[facility] [id number] [place] [address]Ko# [phone] Platelet mean volume (Bld) [Entitic vol] 12.0 fL Normal 9.4-12.4 [facility] Comment on above: Order Comment: Campu s: M Performed By: #### L 200.90253 ####[facility] [id number] [place], [place] [address]Mb# [phone] Platelets (Bld) [#/Vol] 174 K/CU MM Normal 150-450 [facility] Comment on above: Order Comment: Campu s: M Performed By: #### L 200.90812 ####[facility] [id number] [place], [place] [address]Aj# [phone] RBC (Bld) [#/Vol] 2.71 M/CU MM Low 3.90-5.30 [facility] Comment on above: Order Comment: Campu s: M Performed By: #### L 200.63916 ####[facility] [id number] [place], [place] [address]Ll# [phone] WBC (Bld) [#/Vol] 15.7 K/CUMM High 4.5-11.0 [facility] Comment on above: Order Comment: Campu s: M Performed By: #### L 200.69047 ####[facility] [id number] [place], [place] [address]Yc# [phone] CMPon 08-11-2020 Albumin [Mass/Vol] 1.9 g/dL Low 3.2-5.0 [facility] Comment on above: Order Comment: Campu s: M Minimal Draw: Y Performed By: #### L 500.84005, L500.35013 #### [facility] [place] [address] Albumin/Globulin [Mass ratio] 0.6 {ratio} Low 0.8-2.0 [facility] Comment on above: Order Comment: Campu s: M Minimal Draw: Y Performed By: #### L 500.22966, L500.89793 #### [facility] [place] [address] ALK PHOS 123 U/L High 45-117 [facility] Comment on above: Order Comment: Campu s: M Minimal Draw: Y Performed By: #### L 500.60627, L500.27792 #### [facility] [place] [address] ALT [Catalytic activity/Vol] 19 U/L Normal 13-61 [facility] Comment on above: Order Comment: Campu s: M Minimal Draw: Y Result Comment: RESU LTS MAY BE FALSELY DEPRESSED AFTER THE ADMINISTRATION OF SULFASALAZINE AND/OR SULFAPYRIDINE. Performed By: #### L 500.64314, L500.05581 #### [facility] [address] [place] [address] Anion gap [Moles/Vol] 5 mmol/L Normal 5-16 [facility] Comment on above: Order Comment: Campu s: M Minimal Draw: Y Performed By: #### L 500.24800, L500.66824 #### [facility] [address] [place] [address] BILI TOTAL 0.30 MG/DL Normal 0.2-1.0 [facility] Comment on above: Order Comment: Campu s: M Minimal Draw: Y Performed By: #### L 500.19830, L500.96576 #### [facility] [address] [place] [address] Calcium [Mass/Vol] 8.0 mg/dL Low 8.5-10.5 [facility] Comment on above: Order Comment: Campu s: M Minimal Draw: Y Result Comment: NOTE NEW NORMAL RANGE DUE TO REAGENT CHANGE Performed By: #### L 500.39293, L500.07590 #### [facility] [place] [address] Chloride [Moles/Vol] 114 mmol/L High 98-107 [facility] Comment on above: Order Comment: Campu s: M Minimal Draw: Y Performed By: #### L 500.63722, L500.65043 #### [facility] [address] [place] [address] CO2 [Moles/Vol] 34.0 mmol/L High 21-32 [facility] Comment on above: Order Comment: Campu s: M Minimal Draw: Y Performed By: #### L 500.31178, L500.09452 #### [facility] [address] [place] [address] Creatinine [Mass/Vol] 0.67 mg/dL Normal 0.510-0.950 [facility] Comment on above: Order Comment: Campu s: M Minimal Draw: Y Result Comment: Geraldine ents receiving either N-Acetylcysteine (NAC) or Metamizole prior to venipuncture, may have falsely depressed results. Performed By: #### L 500.61866, L500.78150 #### [facility] [address] [place] [address] Globulin (S) [Mass/Vol] 3.2 g/dL Normal 2.2-4.2 [facility] Comment on above: Order Comment: Campu s: M Minimal Draw: Y Performed By: #### L 500.28520, L500.96479 #### [facility] [address] [place] [address] Glucose [Mass/Vol] 173 mg/dL High 70-100 [facility] Comment on above: Order Comment: Campu s: M Minimal Draw: Y Result Comment: 70-1 00- Normal Fasting; 100-125 Impaired Fasting; greater than 126 on more than one result- Diabetes. ADA guidelines. Results may be falsely elevated after the administration of Sulfapyridine. Results may be falsely depressed after the administration of Sulfasalazine. Performed By: #### L 500.22395, L500.69278 #### [facility] [address] [place], [place] [address] Potassium [Moles/Vol] 3.4 mmol/L Low 3.5-5.1 [facility] Comment on above: Order Comment: Campu s: M Minimal Draw: Y Performed By: #### L 500.01170, L500.11193 #### [facility] [place] [address] Protein [Mass/Vol] 5.1 g/dL Low 6.0-8.5 [facility] Comment on above: Order Comment: Campu s: M Minimal Draw: Y Performed By: #### L 500.86072, L500.76377 #### [facility] [address] [place] [address] SGOT (AST) 26 U/L Normal 8-34 [facility] Comment on above: Order Comment: Campu s: M Minimal Draw: Y Result Comment: RESU LTS MAY BE FALSELY DEPRESSED AFTER THE ADMINISTRATION OF SULFASALAZINE AND/OR SULFAPYRIDINE. Performed By: #### L 500.69029, L500.40802 #### [facility] [address] [place] [address] Sodium [Moles/Vol] 153 mmol/L High 136-145 [facility] Comment on above: Order Comment: Campu s: M Minimal Draw: Y Performed By: #### L 500.37726, L500.61761 #### [facility] [address] [place] [address] Urea nitrogen [Mass/Vol] 18 mg/dL Normal 7-26 [facility] Comment on above: Order Comment: Campu s: M Minimal Draw: Y Performed By: #### L 500.09524, L500.20534 #### [facility] [address] [place], [place] [address] Urea nitrogen/Creatinine [Mass ratio] 27 mg/mg High 15-24 [facility] Comment on above: Order Comment: Campu s: M Minimal Draw: Y Performed By: #### L 500.58070, L500.88812 #### [facility] [address] [place] [address] GFR ESTon 08-11-2020 IF AMER Greater than 60 Normal [facility] Comment on above: Order Comment: Abundiou s: M Minimal Draw: Y Performed By: #### L 500.28436, L500.24789 #### [facility] [address] [place] [address] IF non-AFR AMER Greater than 60 Normal [facility] Comment on above: Order Comment: Abundiou s: M Minimal Draw: Y Performed By: #### L 500.34602, L500.31637 #### [facility] [address] [place] [address] PROG [facility] 08-11-2020 PROG [facility] Patient Name: ANDRE BLANCA [address] [place] [address] NW Date of : [address] [place] [address] Unit Number: [id number] Progress Note-Hospitalist Patient Status: ADM IN Attending [...] significant change per the radiologist read. On MonAug 10, 2020 DELIA ADAM wrote Pulmonology/critical care [...] Delia Adam MD Verified/Reviewed by 08/11/20 1330 [facility] Progress Note-Hospitalist [facility] Name: ANDRE BLANCA [address] Date of : [address] [address] Unit Number: [id number] Progress Note-Front Office Manager Patient Status: ADM IN Attending Doctor: Marta Horvath DO Service Date: 08/11/20 1248 Progress Note-Front Office Manager Subjective Subjective: Pleasantly confuse, alert and oriented [...] 1930 AC 08/11 (TYLENOL ORAL LIQ) TUBE 0923 [...] 08/05 08 AC 08/11 (BUSPAR TAB) TUBE 1126 Carbamazepine [...] QHS 08/090 AC 08/10 (MELATONIN TAB) TUBE 2142 Menthol/Methyl [...] Pravastatin Sodium 40 MG QHS 08/040 AC 08/10 (PRAVACHOL TAB) TUBE 2143 Pregabalin [...] ischemic change. No acute abnormalities. Impression By: JSAON PATIÑO M.D. RADIOLOGY - PORTABLE CHEST 08/10 [...] and Former Tobacco Abuse presented to [facility] emergency department on 07/27 secondary to Syncope [...] Ag/SARS-CoV-2 negative. 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 Patient spent time at the [facility] according to son, that is the facility that she met her . * History of multiple falls in the past. * F/E/N: HL fluids/replete lytes as needed /c/w TFs * GI/DVT Prophylaxis: PO nexium/Lovenox * CODE STATUS: DNR Comfort [employer] arrest, discussed with son Giana Blanca, area code [phone]. Did also discuss if patient is functionally [...] Verified/Reviewed by 08/11/20 1711 Trina Johnson CNP [facility] Progress Note-Front Office Manager [facility] PTPNon 08-11-2020 PT Progress Note [facility] PTPN Physical Therapy Inpatient Missed Visit Note Attempted to visit patient for therapy, but was unable for the following reasons: Clinical Reason Pt. remains in 4-point restraints, per RN received Cristiano this a.m.; unable to participate in therapy this date. Will continue to follow. Return Plan: Will return as soon as possible for another attempt. If there are any questions regarding this service, please contact the Acute Therapy Department at extension [phone] Services: Total Billed: 0 minutes (Timed: 0, Untimed: 0) 0.00 Untimed: [] PT Treatment- General ORDER Signed by: Ioana Holden, 08/11/2020 12:15:09 [facility] PATIENT NAME: ANDRE BLANCA [facility] Dr. Andrea MEDICAL REC #: [id number] [place] [address] ADMIT DATE: 07/27/20 SERVICE DATE: 08/11/20 Physical Therapy Progress Note ATTENDING PHY: Marta Horvath DO [facility] 08-10-2020 Anion gap [Moles/Vol] 5 mmol/L Normal 5-16 [facility] Comment on above: Order Comment: Campu s: M Performed By: #### L 500.65351, L500.20991, L500.34714, L500.86922 ####[facility] [id number] [place], [place] [address]El# [phone] Calcium [Mass/Vol] 7.7 mg/dL Low 8.5-10.5 [facility] Comment on above: Order Comment: Campu s: M Result Comment: NOTE NEW NORMAL RANGE DUE TO REAGENT CHANGE Performed By: #### L 500.63808, L500.06713, L500.32480, L500.99908 ####[facility] [id number] [place], [place] [address]Jj# [phone] Chloride [Moles/Vol] 116 mmol/L High 98-107 [facility] Comment on above: Order Comment: Abundiou s: M Performed By: #### L 500.73815, L500.31503, L500.17302, L500.56752 ####[facility] [id number] [place], [place] [address]Ub# [phone] CO2 [Moles/Vol] 32.0 mmol/L Normal 21-32 [facility] Comment on above: Order Comment: Abundiou s: M Performed By: #### L 500.47514, L500.71790, L500.77830, L500.32956 ####[facility] [id number] [place], [place] [address]Dn# [phone] Creatinine [Mass/Vol] 0.72 mg/dL Normal 0.510-0.950 [facility] Comment on above: Order Comment: Abundiou s: M Result Comment: Geraldine ents receiving either N-Acetylcysteine (NAC) or Metamizole prior to venipuncture, may have falsely depressed results. Performed By: #### L 500.97070, L500.12520, L500.51704, L500.73502 ####[facility] [id number] [place], [place] [address]Vt# [phone] Glucose [Mass/Vol] 186 mg/dL High 70-100 [facility] Comment on above: Order Comment: Abundiou s: M Result Comment: 70-1 00- Normal Fasting; 100-125 Impaired Fasting; greater than 126 on more than one result- Diabetes. ADA guidelines. Results may be falsely elevated after the administration of Sulfapyridine. Results may be falsely depressed after the administration of Sulfasalazine. Performed By: #### L 500.12958, L500.13425, L500.93902, L500.38351 ####[facility] [id number] [place], [place] [address]Bz# [phone] Potassium [Moles/Vol] 3.5 mmol/L Normal 3.5-5.1 [facility] Comment on above: Order Comment: Campu s: M Performed By: #### L 500.49109, L500.30327, L500.68724, L500.28024 ####[facility] [id number] [place], [place] [address]Gr# [phone] Sodium [Moles/Vol] 153 mmol/L High 136-145 [facility] Comment on above: Order Comment: Campu s: M Performed By: #### L 500.40280, L500.10978, L500.59416, L500.09115 ####[facility] [id number] [place], [place] [address]Mi# [phone] Urea nitrogen [Mass/Vol] 19 mg/dL Normal 7-26 [facility] Comment on above: Order Comment: Campu s: M Performed By: #### L 500.40377, L500.46873, L500.25468, L500.61178 ####[facility] [id number] [place], [place] [address]Je# [phone] Urea nitrogen/Creatinine [Mass ratio] 26 mg/mg High 15-24 [facility] Comment on above: Order Comment: Campu s: M Performed By: #### L 500.02923, L500.23968, L500.02790, L500.86923 ####[facility] [id number] [place], [place] [address]Yc# [phone] CBC W/DIFFon 08-10-2020 EOS ABS 0.56 K/CU MM High 0-0.5 [facility] Comment on above: Order Comment: Campu s: M Performed By: #### L 200.93872 #### [facility] [place] [address] Eosinophils/100 WBC (Bld) 3.0 % Normal 0-5 [facility] Comment on above: Order Comment: Campu s: M Performed By: #### L 200.80934 #### [facility] [address] [place], [place] [address] HYPO 1+ Normal [facility] Comment on above: Order Comment: Campu s: M Performed By: #### L 200.22078 #### [facility] [address] [place] [address] Lymphocytes (Bld) [#/Vol] 1.50 K/CU MM Normal 0.9-4.4 [facility] Comment on above: Order Comment: Campu s: M Performed By: #### L 200.47737 #### [facility] [address] [place] [address] Lymphocytes/100 WBC (Bld) 8.0 % Low 20-40 [facility] Comment on above: Order Comment: Campu s: M Performed By: #### L 200.45007 #### [facility] [address] [place] [address] META % 2.0 % Normal [facility] Comment on above: Order Comment: Campu s: M Performed By: #### L 200.97645 #### [facility] [address] [place] [address] META ABS 0.37 K/CU MM Normal [facility] Comment on above: Order Comment: Campu s: M Performed By: #### L 200.05227 #### [facility] [address] [place] [address] MONO ABS 0.19 K/CU MM Normal 0.1-1.1 [facility] Comment on above: Order Comment: Campu s: M Performed By: #### L 200.07689 #### [facility] [address] [place] [address] Monocytes/100 WBC (Bld) 1.0 % Low 2-[address] [facility] Comment on above: Order Comment: Campu s: M Performed By: #### L 200.91845 #### [facility] [address] [place] [address] MYELO ABS 0.19 K/CU MM Normal [facility] Comment on above: Order Comment: Campu s: M Performed By: #### L 200.60954 #### [facility] [address] [place] [address] MYELOCYTE % 1.0 % Normal [facility] Comment on above: Order Comment: Campu s: M Performed By: #### L 200.82954 #### [facility] [address] [place] [address] NEUTROPHIL ABS 15.90 K/CU MM High 2.0-8.3 [facility] Comment on above: Order Comment: Campu s: M Performed By: #### L 200.19489 #### [facility] [address] [place] [address] Neutrophils/100 WBC (Bld) 85.0 % High 45-75 [facility] Comment on above: Order Comment: Campu s: M Performed By: #### L 200.59723 #### [facility] [address] [place] [address] Platelets (Bld) [#/Vol] ADEQUATE Normal [facility] Comment on above: Order Comment: Campu s: M Performed By: #### L 200.78086 #### [facility] [facility] [address] [place] [address] POLY 1+ Normal [facility] Comment on above: Order Comment: Campu s: M Performed By: #### L 200.53332 #### [facility] [address] [place], [place] [address] Erythrocyte distribution width (RBC) [Ratio] 15.6 % High 11-14.5 [facility] Comment on above: Order Comment: Campu s: M Performed By: #### L 200.09664 #### [facility] [address] [place] [address] Hematocrit (Bld) [Volume fraction] 28.2 % Low 35.0-47.0 [facility] Comment on above: Order Comment: Campu s: M Performed By: #### L 200.39221 #### [facility] [address] [place] [address] Hemoglobin (Bld) [Mass/Vol] 8.8 g/dL Low 11.5-15.5 [facility] Comment on above: Order Comment: Campu s: M Performed By: #### L 200.58181 #### [facility] [address] [place] [address] MCHC (RBC) [Mass/Vol] 31.2 g/dL Low 32.0-36.0 [facility] Comment on above: Order Comment: Campu s: M Performed By: #### L 200.42516 #### [facility] [address] [place] [address] MCV (RBC) [Entitic vol] 94.9 fL Normal 80.0-99.[address] [facility] Comment on above: Order Comment: Campu s: M Performed By: #### L 200.78995 #### [facility] [address] [place] [address] Nucleated RBC/100 WBC (Bld) [Ratio] 0.0 % Normal Less than 1 [facility] Comment on above: Order Comment: Campu s: M Performed By: #### L 200.32814 #### [facility] [address] [place] [address] Platelet mean volume (Bld) [Entitic vol] 11.6 fL Normal 9.4-12.4 [facility] Comment on above: Order Comment: Campu s: M Performed By: #### L 200.15900 #### [facility] [address] [place] [address] Platelets (Bld) [#/Vol] 183 K/CU MM Normal 150-450 [facility] Comment on above: Order Comment: Campu s: M Performed By: #### L 200.63369 #### [facility] [address] [place] [address] RBC (Bld) [#/Vol] 2.97 M/CU MM Low 3.90-5.30 [facility] Comment on above: Order Comment: Campu s: M Performed By: #### L 200.95680 #### [facility] [place] [address] WBC (Bld) [#/Vol] 18.7 K/CUMM High 4.5-11.0 [facility] Comment on above: Order Comment: Campu s: M Performed By: #### L 200.91549 #### [facility] [place] [address] GFR ESTon 08-10-2020 IF AMER Greater than 60 Normal [facility] Comment on above: Order Comment: Campu s: M Performed By: #### L 500.82558, L500.84985, L500.93117, L500.41225 ####[facility] [id number] [place], [place] [address]Zt# [phone] IF non-AFR AMER Greater than 60 Normal [facility] Comment on above: Order Comment: Campu s: M Performed By: #### L 500.80266, L500.37422, L500.81691, L500.88940 ####[facility] [id number] [place], [place] [address]Aj# [phone] IONIZED CAon 08-10-2020 IONIZED CA 1.08 MMOL/L Low 1.16-1.32 [facility] Comment on above: Order Comment: Campu s: M Performed By: #### L 200.31874 #### [facility] [address] [place] [address] MAGNESIUMon 08-10-2020 Magnesium [Mass/Vol] 2.3 MG/CL Normal 1.6-2.6 [facility] Comment on above: Order Comment: Maciel s: Ramiro Performed By: #### L 500.21327, L500.34166, L500.56687, L500.19144 ####[facility] [id number] [place], [place] [address]Fr# [phone] OTPNon 08-10-2020 OT Progress Note Normal [facility] OTPN Occupational Therapy Inpatient Treatment Note Medical Diagnosis: Acute hypoxemic respiratory failure, Syncope, pneumonia, hypothyroidism OCCUPATIONAL PROFILE AND HISTORY Demographics: Age: 70Y Gender: Female Primary Language: Rwandan Preferred Language: Rwandan Referring Service/Team: Medicine Rehabilitation Precautions/Restrictio ns: fall risk NG tube, 4-point restraints, high flow NC, bed/chair alarm Patient Report: Pt initially agreeable to therapy stating yes when asked if she wanted to participate. [...] bed mobility including supine to sit, rolling, [facility] PATIENT NAME: ANDRE BLANCA [facility] Dr. Andrea MEDICAL REC #: [id number] [place] [address] ADMIT DATE: 07/27/20 SERVICE DATE: 08/10/20 Occupational [...] FOR FOLLOW THROUGH - Not Met: ongoing [facility] PATIENT NAME: ANDRE BLANCA [facility] Dr. Andrea MEDICAL REC #: [id number] [place] [address] ADMIT DATE: 07/27/20 SERVICE DATE: 08/10/20 Occupational [...] contact the Acute Therapy Department at extension [phone] Communication to Nursing: No updates at this time. Location of Patient at End of Therapy Session: In bed, bed alarm in place, call light within reach Services: Total Billed: 15 minutes (Timed: 15, Untimed: 0) 15.00 Timed: [08225] THER ACTIVITIES / 15 MIN 0.00 Untimed: [] OT Treatment General ORDER Signed by: KASEY Bryant 08/10/2020 12:29:24 [facility] PATIENT NAME: ANDRE BLANCA [facility] Dr. Andrea MEDICAL REC #: [id number] [place] [address] ADMIT DATE: 07/27/20 SERVICE DATE: 08/10/20 Occupational Therapy Progress Note ATTENDING PHY: Marta Horvath DO Normal [facility] PHOSon 08-10-2020 Phosphate [Mass/Vol] 3.00 mg/dL Normal 2.5-4.9 [facility] Comment on above: Order Comment: Campu s: M Result Comment: Elev ated m-protein (paraprotein) levels in the serum may be exhibited in patients with monoclonal gammopathies, causing falsely elevated inorganic phosphorus results. Performed By: #### L 500.45224, L500.11260, L500.44183, L500.08004 ####[facility] [id number] [place] [id number]# [phone] PROG [facility] 08-10-2020 PROG [facility] Patient Name: ANDRE BLANCA [facility] Date of : [address], [place] [address] Unit Number: [id number] Progress Note-Hospitalist Patient Status: ADM IN Attending [...] Platelet Estimate ADEQUATE, Polychromasia 1+, Hypochromasia 1+ 08/09/20 2382: Specimen Type ARTERIAL, Sample Site R RADIAL, [...] Will increase free water flushes On Sun :Aug 09, 2020 DELIA ADAM wrote Sodium level 151 on last check and was increasing. Adding free water with tube feeds Disclaimer This dictation was created using voice recognition software. Phonetic and/or minor grammatical errors may exist. eSign Date and Time Delia Adam MD Verified/Reviewed by 08/10/20 1230 [facility] Progress Note-Hospitalist [facility] PR[facility]10-[facility] Name: ANDRE BLANCA [address] Date of : [address] [place] [address] Unit Number: [id number] Progress Note-Front Office Manager Patient Status: ADM IN Attending Doctor: Marta Horvath DO Service Date: 08/10/20 1012 Progress Note-Front Office Manager Subjective Subjective: Patient states having nausea, shortness [...] AC 08/10 Sulbactam Sodium IV 08/11 1759 5331 (UNASYN VIAL) Sodium Chloride 100 ML (Sodium Chloride 0.9%) Budesonide 0.5 MG BID 08/04 2100 AC 08/10 (PULMOCORT 0.5MG/2ML INH 0747 INH.NEB) Buspirone HCl 20 MG TIDWM 08/05 0800 AC 08/10 (BUSPAR TAB) TUBE 0819 Carbamazepine 200 MG TIDWM 08/05 08 AC 08/10 (TEGRETOL TAB) TUBE 08 Clopidogrel Bisulfate 75 MG QDAY 08/05 0900 AC 08/10 (PLAVIX TAB) TUBE 0819 Dexmedetomidine HCl 400 MCG TITRATE(SEE HSAUNA VFS) 08/07 1330 AC 08/10 (PRECEDEX VIAL) [...] and Former Tobacco Abuse presented to [facility] emergency department on 07/27 secondary to Syncope [...] 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 Patient spent time at the [facility] according to son, that is the facility [...] Jayesh Loera MD Verified/Reviewed by 08/10/20 1017 [facility] Progress Note-Front Office Manager [facility] PT Progress Note [facility] PTPN Physical Therapy Inpatient Treatment Note Medical Diagnosis: 1. Acute hypoxemic respiratory failure 2. Syncope 3. Hypothyroidism multiple rib fxs Demographics: Age: 70Y Gender: Female Primary Language: Rwandan Preferred Language: Rwandan Rehabilitation Precautions/Restrictio ns: NG tube, 4-point restraints, [...] bpm Respiratory Rate: 20 breaths per minute [facility] PATIENT NAME: ANDRE BLANCA [facility] Dr. Andrea MEDICAL REC #: [id number] [place] [address] ADMIT DATE: 07/27/20 SERVICE DATE: 08/10/20 Physical [...] contact the Acute Therapy Department at extension [phone] [facility] PATIENT NAME: ANDRE BLANCA Traci Andrea MEDICAL REC #: [id number] [place] [address] ADMIT DATE: 07/27/20 SERVICE DATE: 08/10/20 Physical Therapy Progress Note ATTENDING PHY: Marta Horvath DO Location of Patient at End of Therapy Session: In bed, bed alarm in place, call light within reach Services: Total Billed: 15 minutes (Timed: 15, Untimed: 0) 15.00 Timed: [34514] THER ACTIVITIES / 15 MIN 0.00 Untimed: [] PT Treatment- General ORDER Signed by: Ioana Holden, 08/10/2020 11:40:28 [facility] PATIENT NAME: ANDRE BLANCA Dr. Andrea MEDICAL REC #: [id number] [place] [address] ADMIT DATE: 07/27/20 SERVICE DATE: 08/10/20 Physical Therapy Progress Note ATTENDING PHY: Marta Horvath DO [facility] 08-09-2020 ABG BE 1.8 MML/L Normal -2.0-2.0 [facility] Comment on above: Order Comment: Abundiou s: M Minimal Draw: Y Performed By: #### L 500.08254, L500.26505 #### [facility] [place] [address] ABG COHBA 0.3 % Normal 0-10 [facility] Comment on above: Order Comment: Abundiou s: M Minimal Draw: Y Performed By: #### L 500.49027, L500.97504 #### [facility] [address] [place], [place] [address] ABG GLU 178 MG/DL High 60-80 [facility] Comment on above: Order Comment: Abundiou s: M Minimal Draw: Y Performed By: #### L 500.15002, L500.15822 #### [facility] [address] [place] [address] ABG HCO3 25.3 MMOL/L Normal 22-26 [facility] Comment on above: Order Comment: Abundiou s: M Minimal Draw: Y Performed By: #### L 500.31326, L500.15569 #### [facility] [address] [place], [place] [address] ABG MET 0.3 % Low 0.4-1.5 [facility] Comment on above: Order Comment: Abundiou s: M Minimal Draw: Y Performed By: #### L 500.03119, L500.90834 #### [facility] [address] [place] [address] ABG O2 CAPACITY 14.2 mL/dL Normal [facility] Comment on above: Order Comment: Abundiou s: M Minimal Draw: Y Performed By: #### L 500.69988, L500.86164 #### [facility] [address] [place] [address] ABG O2 CONTENT 13.3 mL/dL Low 15.7-21.6 [facility] Comment on above: Order Comment: Maciel s: M Minimal Draw: Y Performed By: #### L 500.44629, L500.97643 #### [facility] [place] [address] ABG O2HB SAT 91.7 % Normal 90-100 [facility] Comment on above: Order Comment: Maciel s: M Minimal Draw: Y Performed By: #### L 500.25714, L500.75939 #### [facility] [address] [place] [address] ABG PCO2 37.7 MMHG Normal 35-45 [facility] Comment on above: Order Comment: Maciel s: M Minimal Draw: Y Performed By: #### L 500.36976, L500.67453 #### [facility] [address] [place] [address] ABG PH 7.45 Normal 7.35-7.45 [facility] Comment on above: Order Comment: Maciel s: M Minimal Draw: Y Performed By: #### L 500.96050, L500.31049 #### [facility] [address] [place] [address] ABG PO2 68 MMHG Low 80-100 [facility] Comment on above: Order Comment: Maciel s: M Minimal Draw: Y Performed By: #### L 500.72204, L500.07867 #### [facility] [address] [place] [address] DOUG TEST Positive Normal [facility] Comment on above: Order Comment: Maciel s: M Minimal Draw: Y Performed By: #### L 500.78744, L500.17131 #### [facility] [address] [place] [address] aPTT Coag (Bld) [Time] 38.4 C Normal [facility] Comment on above: Order Comment: Maciel s: M Minimal Draw: Y Performed By: #### L 500.34136, L500.45639 #### [facility] [address] [place] [address] EQUIPMENT HIGH FLOW CANNULA Normal [facility] Comment on above: Order Comment: Abundiou s: M Minimal Draw: Y Performed By: #### L 500.60122, L500.27844 #### [facility] [address] [place], [place] [address] FIO2 45 % Normal [facility] Comment on above: Order Comment: Maciel s: M Minimal Draw: Y Performed By: #### L 500.65893, L500.70703 #### [facility] [address] [place] [address] Hemoglobin (Bld) [Mass/Vol] 7.7 % High 0-5 [facility] Comment on above: Order Comment: Maciel s: M Minimal Draw: Y Performed By: #### L 500.73417, L500.26194 #### [facility] [address] [place] [address] Hemoglobin (Bld) [Mass/Vol] 10.3 g/dL Normal 10-16 [facility] Comment on above: Order Comment: Abundiou s: M Minimal Draw: Y Performed By: #### L 500.32501, L500.54199 #### [facility] [address] [place] [address] IONIZED CA 1.07 MMOL/L Low 1.13-1.32 [facility] Comment on above: Order Comment: Maciel s: M Minimal Draw: Y Performed By: #### L 500.57443, L500.72965 #### [facility] [address] [place] [address] LACTATE BLOOD 1.58 MMOL/L Normal 0.40-2.00 [facility] Comment on above: Order Comment: Campu s: M Minimal Draw: Y Performed By: #### L 500.52906, L500.76479 #### [facility] [address] [place] [address] LITERFLOW 40.00 L/M Normal [facility] Comment on above: Order Comment: Campu s: M Minimal Draw: Y Performed By: #### L 500.28818, L500.70651 #### [facility] [facility] [place] [address] Oxygen saturation in Blood 89 % Normal [facility] Comment on above: Order Comment: Campu s: M Minimal Draw: Y Performed By: #### L 500.44566, L500.19154 #### [facility] [address] [place] [address] Potassium [Moles/Vol] 3.3 mmol/L Low 3.5-5.0 [facility] Comment on above: Order Comment: Abundiou s: M Minimal Draw: Y Performed By: #### L 500.25764, L500.71769 #### [facility] [address] [place] [address] SAMPLE SITE R RADIAL Normal [facility] Comment on above: Order Comment: Campu s: M Minimal Draw: Y Performed By: #### L 500.50353, L500.02425 #### [facility] [address] [place] [address], [place] [address] SAMPLE TYPE ARTERIAL Normal [facility] Comment on above: Order Comment: Campu s: M Minimal Draw: Y Performed By: #### L 500.77682, L500.40807 #### [facility] [facility] [place] [address] Sodium [Moles/Vol] 151 mmol/L High 136-148 [facility] Comment on above: Order Comment: Campu s: M Minimal Draw: Y Performed By: #### L 500.17366, L500.01634 #### [facility] [address] [place] [address] BMPon 08-09-2020 Anion gap [Moles/Vol] 8 mmol/L Normal 5-16 [facility] Comment on above: Order Comment: Campu s: M Performed By: #### L 500.92038, L500.38573, L500.81914, L500.53673 ####[facility] [id number] [place], [place] [address]Ft# [phone] Calcium [Mass/Vol] 8.1 mg/dL Low 8.5-10.5 [facility] Comment on above: Order Comment: Campu s: M Result Comment: NOTE NEW NORMAL RANGE DUE TO REAGENT CHANGE Performed By: #### L 500.91199, L500.31411, L500.92221, L500.00574 ####[facility] [id number] [place], [place] [address]Iq# [phone] Chloride [Moles/Vol] 116 mmol/L High 98-107 [facility] Comment on above: Order Comment: Campu s: M Performed By: #### L 500.11025, L500.30593, L500.35031, L500.26317 ####[facility] [id number] [place], [place] [address]Dr# [phone] CO2 [Moles/Vol] 27.0 mmol/L Normal [facility] Comment on above: Order Comment: Campu s: M Performed By: #### L 500.18801, L500.03859, L500.38498, L500.32037 ####[facility] [id number] [place], [place] [address]Ys# [phone] Creatinine [Mass/Vol] 0.76 mg/dL Normal 0.510-0.950 [facility] Comment on above: Order Comment: Campu s: M Result Comment: Geraldine ents receiving either N-Acetylcysteine (NAC) or Metamizole prior to venipuncture, may have falsely depressed results. Performed By: #### L 500.50383, L500.30361, L500.05267, L500.07161 ####[facility] [id number] [place], [place] [address]Cc# [phone] Glucose [Mass/Vol] 150 mg/dL High 70-100 [facility] Comment on above: Order Comment: Campu s: M Result Comment: 70-1 00- Normal Fasting; 100-125 Impaired Fasting; greater than 126 on more than one result- Diabetes. ADA guidelines. Results may be falsely elevated after the administration of Sulfapyridine. Results may be falsely depressed after the administration of Sulfasalazine. Performed By: #### L 500.71881, L500.19450, L500.34731, L500.92072 ####[facility] [id number] [place], [place] [address]Ab# [phone] Potassium [Moles/Vol] 3.8 mmol/L Normal 3.5-5.1 [facility] Comment on above: Order Comment: Campu s: M Performed By: #### L 500.16653, L500.63826, L500.01509, L500.51365 ####[facility] [id number] [place], [place] [address]Tn# [phone] Sodium [Moles/Vol] 151 mmol/L High 136-145 [facility] Comment on above: Order Comment: Campu s: M Performed By: #### L 500.66670, L500.10641, L500.82882, L500.61049 ####[facility] [id number] [place], [place] [address]Oi# [phone] Urea nitrogen [Mass/Vol] 21 mg/dL Normal 7-26 [facility] Comment on above: Order Comment: Campu s: M Performed By: #### L 500.20505, L500.73428, L500.70897, L500.16236 ####[facility] [id number] [place], [place] [address]Ry# [phone] Urea nitrogen/Creatinine [Mass ratio] 27 mg/mg High 15-24 [facility] Comment on above: Order Comment: Campu s: M Performed By: #### L 500.27945, L500.29280, L500.41508, L500.34723 ####[facility] [id number] [place], [place] [address]Ff# [phone] CBC W/DIFFon 08-09-2020 BAND ABS 2.87 K/CU MM Normal [facility] Comment on above: Order Comment: Campu s: M What is the source? URINE Performed By: #### M 150.07737, M150.41506 #### [facility] [address] [place] [address] Band form neutrophils/100 WBC (Bld) 15.0 % High 0-7 [facility] Comment on above: Order Comment: Campu s: M What is the source? URINE Performed By: #### M 150.14757, M150.38433 #### [facility] [address] [place] [address] BASO ABS 0.19 K/CU MM Normal 0-0.2 [facility] Comment on above: Order Comment: Campu s: M What is the source? URINE Performed By: #### M 150.22664, M150.98766 #### [facility] [place] [address] Basophils/100 WBC (Bld) 1.0 % Normal 0-2 [facility] Comment on above: Order Comment: Campu s: M What is the source? URINE Performed By: #### M 150.41094, M150.87302 #### [facility] [place] [address] EOS ABS 0.38 K/CU MM Normal 0-0.5 [facility] Comment on above: Order Comment: Campu s: M What is the source? URINE Performed By: #### M 150.09096, M150.74087 #### [facility] [address] [place] [address] Eosinophils/100 WBC (Bld) 2.0 % Normal 0-5 [facility] Comment on above: Order Comment: Campu s: M What is the source? URINE Performed By: #### M 150.02021, M150.29939 #### [facility] [address] [place] [address] HYPO 1+ Normal [facility] Comment on above: Order Comment: Campu s: M What is the source? URINE Performed By: #### M 150.78014, M150.75773 #### [facility] [address] [place] [address] Lymphocytes (Bld) [#/Vol] 0.57 K/CU MM Low 0.9-4.4 [facility] Comment on above: Order Comment: Campu s: M What is the source? URINE Performed By: #### M 150.31430, M150.39656 #### [facility] [place] [address] Lymphocytes/100 WBC (Bld) 3.0 % Low 20-40 [facility] Comment on above: Order Comment: Campu s: M What is the source? URINE Performed By: #### M 150.89309, M150.83267 #### [facility] [address] [place] [address] META % 1.0 % Normal [facility] Comment on above: Order Comment: Campu s: M What is the source? URINE Performed By: #### M 150.47057, M150.24869 #### [facility] [address] [place] [address] META ABS 0.19 K/CU MM Normal [facility] Comment on above: Order Comment: Campu s: M What is the source? URINE Performed By: #### M 150.47761, M150.54958 #### [facility] [address] [place] [address] MONO ABS 2.48 K/CU MM High 0.1-1.1 [facility] Comment on above: Order Comment: Campu s: M What is the source? URINE Performed By: #### M 150.39152, M150.22951 #### [facility] [address] [place], [place] [address] Monocytes/100 WBC (Bld) 13.0 % High 2-[address] [facility] Comment on above: Order Comment: Campu s: M What is the source? URINE Performed By: #### M 150.10056, M150.21085 #### [facility] [address] [place] [address] MYELO ABS 0.19 K/CU MM Normal [facility] Comment on above: Order Comment: Campu s: M What is the source? URINE Performed By: #### M 150.11789, M150.69486 #### [facility] [address] [place] [address] MYELOCYTE % 1.0 % Normal [facility] Comment on above: Order Comment: Campu s: M What is the source? URINE Performed By: #### M 150.80626, M150.65934 #### [facility] [address] [place] [address] NEUTROPHIL ABS 12.22 K/CU MM High 2.0-8.3 [facility] Comment on above: Order Comment: Campu s: M What is the source? URINE Performed By: #### M 150.59499, M150.02935 #### [facility] [address] [place] [address] Neutrophils/100 WBC (Bld) 64.0 % Normal 45-75 [facility] Comment on above: Order Comment: Campu s: M What is the source? URINE Performed By: #### M 150.66886, M150.53487 #### [facility] [address] [place] [address] Platelets (Bld) [#/Vol] ADEQUATE Normal M [facility] Comment on above: Order Comment: Campu s: M What is the source? URINE Performed By: #### M 150.94797, M150.39274 #### [facility] [address] [place], [place] [address] POLY 1+ Normal [facility] Comment on above: Order Comment: Campu s: M What is the source? URINE Performed By: #### M 150.29280, M150.38288 #### [facility] [address] [place] [address] Erythrocyte distribution width (RBC) [Ratio] 15.3 % High 11-14.5 [facility] Comment on above: Order Comment: Campu s: M What is the source? URINE Performed By: #### M 150.82902, M150.68557 #### [facility] [address] [place] [address]255 Hematocrit (Bld) [Volume fraction] 27.9 % Low 35.0-47.0 [facility] Comment on above: Order Comment: Campu s: M What is the source? URINE Performed By: #### M 150.27477, M150.45044 #### [facility] [address] [place] [address] 61342 Hemoglobin (Bld) [Mass/Vol] 8.8 g/dL Low 11.5-15.5 [facility] Comment on above: Order Comment: Campu s: M What is the source? URINE Performed By: #### M 150.36077, M150.71152 #### [facility] [address] [place] [address] MCHC (RBC) [Mass/Vol] 31.5 g/dL Low 32.0-36.0 [facility] Comment on above: Order Comment: Campu s: M What is the source? URINE Performed By: #### M 150.48329, M150.60183 #### [facility] [place] [address] MCV (RBC) [Entitic vol] 93.6 fL Normal 80.0-99.[address] [facility] Comment on above: Order Comment: Campu s: M What is the source? URINE Performed By: #### M 150.40852, M150.77574 #### [facility] [address] [place] [address] 27963 Nucleated RBC/100 WBC (Bld) [Ratio] 0.0 % Normal Less than 1 [facility] Comment on above: Order Comment: Campu s: M What is the source? URINE Performed By: #### M 150.81179, M150.39863 #### [facility] [address] [place] [address] 60835 Platelet mean volume (Bld) [Entitic vol] 11.6 fL Normal 9.4-12.4 [facility] Comment on above: Order Comment: Campu s: M What is the source? URINE Performed By: #### M 150.26057, M150.98755 #### [facility] [address] [place] [address] 34542 Platelets (Bld) [#/Vol] 189 K/CU MM Normal 150-450 [facility] Comment on above: Order Comment: Campu s: M What is the source? URINE Performed By: #### M 150.63577, M150.86971 #### [facility] [address] [place] [address] 19051 RBC (Bld) [#/Vol] 2.98 M/CU MM Low 3.90-5.30 [facility] Comment on above: Order Comment: Campu s: M What is the source? URINE Performed By: #### M 150.31410, M150.82391 #### [facility] [address] [place] [address] WBC (Bld) [#/Vol] 19.1 K/CUMM High 4.5-11.0 [facility] Comment on above: Order Comment: Campu s: M What is the source? URINE Performed By: #### M 150.56677, M150.80235 #### [facility] [address] [place] [address] GFR ESTon 08-09-2020 IF AMER Greater than 60 Normal [facility] Comment on above: Order Comment: Campu s: M Performed By: #### L 500.92064, L500.27506, L500.41621, L500.05139 ####[facility] [id number] [place], [place] [address]Ph# [phone] IF non-AFR AMER Greater than 60 Normal [facility] Comment on above: Order Comment: Campu s: M Performed By: #### L 500.40606, L500.31187, L500.64923, L500.36815 ####[facility] [id number] [place], [place] [address]Az# [phone] IONIZED CAon 08-09-2020 IONIZED CA 1.12 MMOL/L Low 1.16-1.32 [facility] Comment on above: Order Comment: Campu s: M Performed By: #### L 550.79081 ####[facility] [id number] [place], [place] [address]Pk# [phone] MAGNESIUMon 08-09-2020 Magnesium [Mass/Vol] 1.6 MG/CL Normal 1.6-2.6 [facility] Comment on above: Order Comment: Campu s: M Performed By: #### L 500.29003, L500.12489, L500.14926, L500.68853 ####[facility] [id number] [place], [place] [address]Mk# [phone] PHOSon 08-09-2020 Phosphate [Mass/Vol] 1.70 mg/dL Low 2.5-4.9 [facility] Comment on above: Order Comment: Maciel s: M Result Comment: Elev ated m-protein (paraprotein) levels in the serum may be exhibited in patients with monoclonal gammopathies, causing falsely elevated inorganic phosphorus results. Performed By: #### L 500.05769, L500.10677, L500.52500, L500.00481 ####[facility] [id number] [place], [place] [address]Fa# [phone] PROG [facility] 08-09-2020 PROG [facility] Patient Name: ANDRE BLANCA [address] [facility] [address] Date of : [address] [address] Unit Number: [id number] Progress Note-Hospitalist Patient Status: ADM IN Attending [...] confusion noted Diagnostic Data: Lab 24hr (CBC/BMP [facility]) 08/09/20 0445: Ionized Calcium 1.12 L 08/09/20 [...] Delia Adam MD Verified/Reviewed by 08/09/20 1321 [facility] Progress Note-Hospitalist [facility] PROG.Rocael 08-09-2020 PROG.ASHKAN [facility] Patient [facility]: [facility] Date of : [address] [address] Unit Number: [id number] Progress Note-Front Office Manager Patient Status: ADM IN Attending Doctor: Marta Horvath DO Service Date: 08/09/20 1042 Progress Note-Front Office Manager Subjective Subjective: still confused , breathing appears better, but still on high flow O2 Objective Vital Signs: Vital Signs (Last) Result Date Time Pulse Ox 93 08/09 0600 B/P 121/56 08/09 0600 B/P Mean 80 08/09 06 O2 Delivery HIGH FLOW NC 12/27 0600 O2 Flow Rate 50L60% 08/09 0600 Pulse 89 08/09 0600 Resp 19 08/09 [...] 2100 AC 08/04 (ZOFRAN VIAL) IV 2127 Phenobarbital Sodium 100 MG TIDPRN PRN 08/09 [...] and Former Tobacco Abuse presented to [facility] emergency department on 07/27 secondary to Syncope [...] Morris Alonso MD Verified/Reviewed by 08/09/20 1046 [facility] Progress Note-Front Office Manager [facility] 08-09-2020 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 Andrea MEDICAL REC #: [id number] [place] [address] ADMIT DATE: 07/27/20 SERVICE DATE: 08/09/20 Speech-Language Progress Note ATTENDING PHY: Mart[facility] Hor[facility]ath [facility] Anion gap [Moles/Vol] 11 mmol/L Normal 5-16 [facility] Comment on above: Order Comment: Maciel s: Ramiro Minimal Draw: Y Performed By: #### L 500.08856, L500.65880 #### [facility] [address] [place] [address] Calcium [Mass/Vol] 8.0 mg/dL Low 8.5-10.5 [facility] Comment on above: Order Comment: Abundiou s: M Minimal Draw: Y Result Comment: NOTE NEW NORMAL RANGE DUE TO REAGENT CHANGE Performed By: #### L 500.01907, L500.43022 #### [facility] [address] [place] [address] Chloride [Moles/Vol] 114 mmol/L High 98-107 [facility] Comment on above: Order Comment: Abundiou s: M Minimal Draw: Y Performed By: #### L 500.35189, L500.70473 #### [facility] [address] [place] [address] CO2 [Moles/Vol] 24.0 mmol/L Normal 21-32 [facility] Comment on above: Order Comment: Abundiou s: M Minimal Draw: Y Performed By: #### L 500.68460, L500.81446 #### [facility] [address] [place] [address] Creatinine [Mass/Vol] 0.76 mg/dL Normal 0.510-0.950 [facility] Comment on above: Order Comment: Abundiou s: M Minimal Draw: Y Result Comment: Geraldine ents receiving either N-Acetylcysteine (NAC) or Metamizole prior to venipuncture, may have falsely depressed results. Performed By: #### L 500.83998, L500.11579 #### [facility] [address] [place] [address] Glucose [Mass/Vol] 136 mg/dL High 70-100 [facility] Comment on above: Order Comment: Abundiou s: M Minimal Draw: Y Result Comment: 70-1 00- Normal Fasting; 100-125 Impaired Fasting; greater than 126 on more than one result- Diabetes. ADA guidelines. Results may be falsely elevated after the administration of Sulfapyridine. Results may be falsely depressed after the administration of Sulfasalazine. Performed By: #### L 500.68916, L500.12511 #### [facility] [address] [place] [address] Potassium [Moles/Vol] 3.4 mmol/L Low 3.5-5.1 [facility] Comment on above: Order Comment: Campu s: M Minimal Draw: Y Performed By: #### L 500.84550, L500.40932 #### [facility] [address] [place] [address] Sodium [Moles/Vol] 149 mmol/L High 136-145 [facility] Comment on above: Order Comment: Campu s: M Minimal Draw: Y Performed By: #### L 500.26436, L500.59906 #### [facility] [address] [place] [address] Urea nitrogen [Mass/Vol] 20 mg/dL Normal 7-26 [facility] Comment on above: Order Comment: Campu s: M Minimal Draw: Y Performed By: #### L 500.25497, L500.61032 #### [facility] [address] [place] [address] Urea nitrogen/Creatinine [Mass ratio] 26 mg/mg High 15-24 [facility] Comment on above: Order Comment: Campu s: M Minimal Draw: Y Performed By: #### L 500.33876, L500.70717 #### [facility] [address] [place] [address] CBC W/DIFFon 08-08-2020 BASO ABS 0.10 K/CU MM Normal 0-0.2 [facility] Comment on above: Order Comment: Campu s: M Performed By: #### L 200.72892 #### [facility] [address] [place] [address] Basophils/100 WBC (Bld) 0.4 % Normal 0-[address] [facility] Comment on above: Order Comment: Campu s: M Performed By: #### L 200.35147 #### [facility] [address] [place] [address] EOS ABS 0.10 K/CU MM Normal 0-0.5 [facility] Comment on above: Order Comment: Campu s: M Performed By: #### L 200.82053 #### [facility] [address] [place] [address] Eosinophils/100 WBC (Bld) 0.5 % Normal 0-5 [facility] Comment on above: Order Comment: Campu s: M Performed By: #### L 200.14398 #### [facility] [address] [place] [address] Erythrocyte distribution width (RBC) [Ratio] 14.9 % High 11-14.5 [facility] Comment on above: Order Comment: Campu s: M Performed By: #### L 200.01844 #### [facility] [address] [place] [address] Hematocrit (Bld) [Volume fraction] 27.8 % Low 35.0-47.0 [facility] Comment on above: Order Comment: Campu s: M Performed By: #### L 200.83060 #### [facility] [address] [place] [address] Hemoglobin (Bld) [Mass/Vol] 8.7 g/dL Low 11.5-15.5 [facility] Comment on above: Order Comment: Campu s: M Result Comment: Repe ated and verified. Performed By: #### L 200.13059 #### [facility] [address] [place] [address] IMMATR GRAN ABS 0.90 K/CU MM Normal Less than 2 [facility] Comment on above: Order Comment: Campu s: M Performed By: #### L 200.40933 #### [facility] [address] [place] [address] IMMATURE GRAN % 4.6 % Normal Less than 2 [facility] Comment on above: Order Comment: Campu s: M Performed By: #### L 200.32604 #### [facility] [address] [place], [place] [address] Lymphocytes (Bld) [#/Vol] 1.20 K/CU MM Normal 0.9-4.4 [facility] Comment on above: Order Comment: Campu s: M Performed By: #### L 200.58702 #### [facility] [address] [place] [address] Lymphocytes/100 WBC (Bld) 6.2 % Low 20-40 [facility] Comment on above: Order Comment: Campu s: M Performed By: #### L 200.30339 #### [facility] [address] [place] [address] MCHC (RBC) [Mass/Vol] 31.3 g/dL Low 32.0-36.0 [facility] Comment on above: Order Comment: Campu s: M Performed By: #### L 200.34590 #### [facility] [address] [place] [address] MCV (RBC) [Entitic vol] 94.6 fL Normal 80.0-99.[address] [facility] Comment on above: Order Comment: Campu s: M Performed By: #### L 200.70222 #### [facility] [address] [place] [address] MONO ABS 1.50 K/CU MM High 0.1-1.1 [facility] Comment on above: Order Comment: Campu s: M Performed By: #### L 200.19826 #### [facility] [address] [place], [place] [address] Monocytes/100 WBC (Bld) 7.9 % Normal 2-[address] [facility] Comment on above: Order Comment: Campu s: M Performed By: #### L 200.51184 #### [facility] [address] [place] [address] NEUTROPHIL ABS 15.00 K/CU MM High 2.0-8.3 [facility] Comment on above: Order Comment: Campu s: M Performed By: #### L 200.30837 #### [facility] [address] [place] [address] Neutrophils/100 WBC (Bld) 80.4 % High 45-75 [facility] Comment on above: Order Comment: Campu s: M Performed By: #### L 200.47561 #### [facility] [address] [place] [address] Nucleated RBC/100 WBC (Bld) [Ratio] 0.0 % Normal Less than 1 [facility] Comment on above: Order Comment: Campu s: M Performed By: #### L 200.38100 #### [facility] [address] [place] [address] Platelet mean volume (Bld) [Entitic vol] 11.4 fL Normal 9.4-12.4 [facility] Comment on above: Order Comment: Campu s: M Performed By: #### L 200.81261 #### [facility] [address] [place] [address] Platelets (Bld) [#/Vol] 198 K/CU MM Normal 150-450 [facility] Comment on above: Order Comment: Campu s: M Performed By: #### L 200.50007 #### [facility] [address] [place] [address] RBC (Bld) [#/Vol] 2.94 M/CU MM Low 3.90-5.30 [facility] Comment on above: Order Comment: Campu s: M Performed By: #### L 200.33846 #### [facility] [address] [place] [address] WBC (Bld) [#/Vol] 18.7 K/CUMM High 4.5-11.0 [facility] Comment on above: Order Comment: Maciel joe: Ramiro Performed By: #### L 200.03581 #### [facility] [address] [place] [address] DIET.[facility] 08-08-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 Comment on above: Order Comment: Maciel s: M Minimal Draw: Y Performed By: #### L 500.68842, L500.22963 #### [facility] [address] [place] [address] IF non-AFR AMER Greater than 60 [facility] Comment on above: Order Comment: Maciel s: M Minimal Draw: Y Performed By: #### L 500.87717, L500.57255 #### [facility] [address] [place] [address] PROG [facility] 08-08-2020 PROG [facility] Patient Name: ANDRE BLANCA [address] [place] [address] Date of : [address] [address] Unit Number: [id number] Progress Note-Hospitalist Patient Status: ADM IN Attending Doctor: Marta Horvath DO Service Date: 08/08/20 152 Chief Complaint Chief Complaint Syncope Subjective S: (2 ROS minimum) Patient was thought to be a poor historian. Knew her name and that she was in [place] but could not tell me that she [...] Appearance Clear, Urine pH 5.0, Ur Specific [place] 1.026, Urine Protein 100, Urine Glucose (UA) [...] Appearance Cancelled, Urine pH Cancelled, Ur Specific [place] Cancelled, Urine Protein Cancelled, Urine Glucose (UA) [...] Delia Adam MD Verified/Reviewed by 08/08/20 1542 [facility] Progress Note-Hospitalist [facility] PR[facility] Name: ANDRE BLANCA [address] Date of : [address] [place], [place] [address] Unit Number: [id number] Progress Note-Front Office Manager Patient Status: ADM IN Attending Doctor: Marta Horvath DO Service Date: 08/08/20 0949 Progress Note-Front Office Manager Subjective Subjective: still w sig encephalopathy requiring precedex still requiring high flow O2 Objective Vital Signs: Vital Signs (Last) Result Date Time Pulse Ox 92 08/08 0730 O2 Delivery HIGH FLOW NC 08/08 730 O2 Flow Rate 55% 08/08 730 Temp 100.1 08/08 0648 B/P 140/69 08/08 0600 B/P Mean 99 08/08 06 Pulse 112 08/08 06 Resp 43 08/08 600 IandO 24 Hour Summary 08/08 0000 Intake [...] 1800 AC 08/08 Sulbactam Sodium IV 08/11 175 0530 (UNASYN VIAL) Sodium Chloride 100 ML (Sodium Chloride 0.9%) Budesonide 0.5 MG BID 08/04 2100 AC 08/08 (PULMOCORT 0.5MG/2ML INH 0746 INH.NEB) Buspirone HCl 20 MG TIDWM 08/05 08 AC 08/08 (BUSPAR TAB) TUBE 0834 Carbamazepine 200 MG TIDWM 08/05 0800 AC 08/08 (TEGRETOL TAB) TUBE 0838 Clopidogrel Bisulfate 75 MG QDAY 08/05 09 AC 08/08 (PLAVIX TAB) TUBE 0834 Dexmedetomidine HCl 400 MCG TITRATE(SEE SHAUNA VFS) 08/07 1330 AC 08/08 (PRECEDEX VIAL) IV 0913 Sodium Chloride 96 ML (Sodium Chloride 0.9%) Enoxaparin Sodium 40 MG QDAY 07/28 09 AC 08/08 (LOVENOX D.SYR) SC 0834 Esomeprazole [...] PATIÑO M.D. RADIOLOGY - PORTABLE CHEST 08/08 4990 Report Impression - Status: SIGNED Entered: 08/08/2020 0752 IMPRESSION: Worsening appearance of the lungs. Impression By: KOSTA CABRERA M.D. Lab Results: Lab 24hr (CBC/BMP Fishbone) 08/08/20 0840: Urine Color Yellow, Urine Appearance Clear, Urine pH 5.0, Ur Specific [place] 1.026, Urine Protein 100, Urine Glucose (UA) [...] and Former Tobacco Abuse presented to [facility] emergency department on 07/27 secondary to Syncope [...] Morris Alonso MD Verified/Reviewed by 08/08/20 0954 Normal [facility] Progress Note-Front Office Manager [facility] RESP/SPUT CULTon 08-08-2020 RESP/SPUT CULT This report has been cancelled [facility] Comment on above: Order Comment: Cance lled via OE: Unable to Obtain Test UA COMPLETEon 08-08-2020 UA LK ESTERASE 25 Normal NEGATIVE [facility] Comment on above: Order Comment: Maciel s: M What is the source? URINE Performed By: #### M 150.30622, M150.64972 #### [facility] [place] [address] UA WBC 36 WBC/HPF High 0-5 [facility] Comment on above: Order Comment: Maciel s: M What is the source? URINE Performed By: #### M 150.40097, M150.50918 #### [facility] [address] [place] [address] Color (U) Yellow Normal [facility] Comment on above: Order Comment: Campu s: M What is the source? URINE Performed By: #### M 150.94361, M150.77257 #### [facility] [place] [address] Glucose (U) [Mass/Vol] 50 mg/dL Normal NORMAL [facility] Comment on above: Order Comment: Campu s: M What is the source? URINE Performed By: #### M 150.44558, M150.98003 #### [facility] [address] [place] [address] HYALINE CAST 1 /LPF Normal 0-1 [facility] Comment on above: Order Comment: Campu s: M What is the source? URINE Performed By: #### M 150.95176, M150.09074 #### [facility] [address] [place] [address] Mucus Ql (Urine sed) TRACE Normal NEGATIVE [facility] Comment on above: Order Comment: Campu s: M What is the source? URINE Performed By: #### M 150.98925, M150.68151 #### [facility] [place] [address] SQUAMOUS EPIS 0 EPI/HPF Normal 0-5 [facility] Comment on above: Order Comment: Campu s: M What is the source? URINE Performed By: #### M 150.10789, M150.56489 #### [facility] [place] [address] UA APPEARANCE Clear Normal CLEAR [facility] Comment on above: Order Comment: Campu s: M What is the source? URINE Performed By: #### M 150.53330, M150.84811 #### [facility] [place] [address] UA BACTERIA NONE Normal NONE [facility] Comment on above: Order Comment: Campu s: M What is the source? URINE Performed By: #### M 150.48686, M150.72095 #### [facility] [address] [place] [address] UA BILIRUBIN Negative Normal NEGATIVE [facility] Comment on above: Order Comment: Campu s: M What is the source? URINE Performed By: #### M 150.42220, M150.97269 #### [facility] [address] [place] [address] UA BLOOD LARGE Normal NEGATIVE [facility] Comment on above: Order Comment: Campu s: M What is the source? URINE Performed By: #### M 150.11023, M150.90951 #### [facility] [address] [place] [address] UA KETONE 80 Normal NEGATIVE [facility] Comment on above: Order Comment: Campu s: M What is the source? URINE Performed By: #### M 150.90373, M150.35656 #### [facility] [address] [place] [address] UA NITRITE Negative Normal NEGATIVE [facility] Comment on above: Order Comment: Campu s: M What is the source? URINE Performed By: #### M 150.77270, M150.88080 #### [facility] [address] [place] [address] UA PH 5.0 Normal 5-6 [facility] Comment on above: Order Comment: Campu s: M What is the source? URINE Performed By: #### M 150.00080, M150.08835 #### [facility] [address] [place] [address] UA PROTEIN 100 Normal NEGATIVE [facility] Comment on above: Order Comment: Campu s: M What is the source? URINE Performed By: #### M 150.30899, M150.91851 #### [facility] [address] [place] [address] UA RBC 432 RBC/HPF High 0-3 [facility] Comment on above: Order Comment: Campu s: M What is the source? URINE Performed By: #### M 150.78439, M150.72305 #### [facility] [address] [place] [address] UA SPEC GRAV 1.026 Normal 1.005-1.030 [facility] Comment on above: Order Comment: Campu s: M What is the source? URINE Performed By: #### M 150.59899, M150.31225 #### [facility] [place] [address] UA UROBILINOGEN Negative Normal NORMAL [facility] Comment on above: Order Comment: Campu s: M What is the source? URINE Performed By: #### M 150.62136, M150.90446 #### [facility] [place] [address] BMPon 08-07-2020 Anion gap [Moles/Vol] 9 mmol/L Normal 5-16 [facility] Comment on above: Order Comment: Campu s: MMinimal Draw: Y Performed By: #### L 500.72979, L500.74844 ####[facility] [id number] [place], [place] [address]Ox# [phone] Calcium [Mass/Vol] 7.6 mg/dL Low 8.5-10.5 [facility] Comment on above: Order Comment: Campu s: MMinimal Draw: Y Result Comment: NOTE NEW NORMAL RANGE DUE TO REAGENT CHANGE Performed By: #### L 500.49927, L500.06017 ####[facility] [id number] [place], [place] [address]Gc# [phone] Chloride [Moles/Vol] 110 mmol/L High 98-107 [facility] Comment on above: Order Comment: Campu s: MMinimal Draw: Y Performed By: #### L 500.18846, L500.59211 ####[facility] [id number] [place], [place] [address]Fs# [phone] CO2 [Moles/Vol] 26.0 mmol/L Normal 21-32 [facility] Comment on above: Order Comment: Campu s: MMinimal Draw: Y Performed By: #### L 500.48056, L500.19399 ####[facility] [id number] [place], [place] [address]Ph# [phone] Creatinine [Mass/Vol] 0.81 mg/dL Normal 0.510-0.950 [facility] Comment on above: Order Comment: Campu s: MMinimal Draw: Y Result Comment: Geraldine ents receiving either N-Acetylcysteine (NAC) or Metamizole prior to venipuncture, may have falsely depressed results. Performed By: #### L 500.06253, L500.82260 ####[facility] [id number] [place], [place] [address]Rh# [phone] Glucose [Mass/Vol] 148 mg/dL High 70-100 [facility] Comment on above: Order Comment: Campu s: MMinimal Draw: Y Result Comment: 70-1 00- Normal Fasting; 100-125 Impaired Fasting; greater than 126 on more than one result- Diabetes. ADA guidelines. Results may be falsely elevated after the administration of Sulfapyridine. Results may be falsely depressed after the administration of Sulfasalazine. Performed By: #### L 500.98256, L500.20066 ####[facility] [id number] [place], [place] [address]Aa# [phone] Potassium [Moles/Vol] 3.4 mmol/L Low 3.5-5.1 [facility] Comment on above: Order Comment: Campu s: MMinimal Draw: Y Performed By: #### L 500.62296, L500.56478 ####[facility] [id number] [place], [place] [address]Pd# [phone] Sodium [Moles/Vol] 145 mmol/L Normal 136-145 [facility] Comment on above: Order Comment: Campu s: MMinimal Draw: Y Performed By: #### L 500.68713, L500.66590 ####[facility] [id number] [place], [place] [address]Dx# [phone] Urea nitrogen [Mass/Vol] 21 mg/dL Normal 7-26 [facility] Comment on above: Order Comment: Campu s: MMinimal Draw: Y Performed By: #### L 500.66189, L500.87449 ####[facility] [id number] [place], [place] [address]Kd# [phone] Urea nitrogen/Creatinine [Mass ratio] 26 mg/mg High 15-24 [facility] Comment on above: Order Comment: Campu s: MMinimal Draw: Y Performed By: #### L 500.13764, L500.05545 ####[facility] [id number] [place] [address]Zq# [phone] GFR ESTon 08-07-2020 IF AMER Greater than 60 Normal [facility] Comment on above: Order Comment: Campu s: MMinimal Draw: Y Performed By: #### L 500.52892, L500.43573 ####[facility] [id number] [place], [place] [address]Sr# [phone] IF non-AFR AMER Greater than 60 Normal [facility] Comment on above: Order Comment: Campu s: MMinimal Draw: Y Performed By: #### L 500.30573, L500.52894 ####[facility] [id number] [place], [place] [address]Vd# [phone] PROG IMS 08-07-2020 PROG [facility] Patient Name: ANDRE BLANCA [address] [facility] [address] Date of : [address] [address] Unit Number: [id number] Progress Note-Hospitalist Patient Status: ADM IN Attending Doctor: Marta Horvath DO Service Date: 08/07/20 1534 Chief Complaint Chief Complaint Syncope Patient is a 70-year-old female with past medical history significant for CVA, hypothyroidism, COPD not on home oxygen, recurrent syncopal episodes presented to [facility] after a syncopal episode. Patient also reported [...] rash noticed. Diagnostic Data: Lab 24hr (CBC/BMP Luz) 08/07/20 0450: [Embedded Image Not Available] Anion [...] Gloria Saxena MD Verified/Reviewed by 08/07/20 1537 [facility] Progress Note-Hospitalist [facility] PROG.Rocael 08-07-2020 PROG.ASHKAN [facility] Patient Name: ANDRE BLANCA [address] Date of : [address] [place], [place] [address] Unit Number: [id number] Progress Note-Front Office Manager Patient Status: ADM IN Attending Doctor: Marta Horvath DO Service Date: 08/07/20 0857 Progress Note-Front Office Manager Subjective Subjective: still confused, pulling out NGs still on high flow O2 Objective Vital Signs: Vital Signs (Last) Result Date Time Pulse Ox 97 08/07 652 B/P 127/56 08/07 652 B/P Mean 81 08/07 652 O2 Delivery HIGH FLOW NC 08/07 652 O2 Flow Rate 60% 08/07 652 Pulse 71 08/07 652 Resp 18 08/07 652 Temp 98.6 08/07 06 IandO 24 Hour Summary 08/07 0000 Intake [...] TUBE 0844 Carbamazepine 200 MG TIDWM 08/05 08 AC 08/07 (TEGRETOL TAB) TUBE 0843 Clopidogrel Bisulfate 75 MG QDAY 08/05 09 AC 08/07 (PLAVIX TAB) TUBE 0844 Dexmedetomidine HCl 400 MCG TITRATE(SEE SHAUNA VFS) 08/06 2100 AC 08/07 (PRECEDEX VIAL) IV 0558 Sodium Chloride 96 ML (Sodium Chloride 0.9%) Enoxaparin Sodium 40 MG QDAY 07/28 0900 AC 08/07 (LOVENOX D.SYR) SC 0845 Esomeprazole [...] and Former Tobacco Abuse presented to [facility] emergency department on 07/27 secondary to Syncope [...] Morris Alonso MD Verified/Reviewed by 08/07/20 0900 [facility] Progress Note-Front Office Manager [facility] 08-07-2020 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 Andrea MEDICAL REC #: [id number] [place] [address] ADMIT DATE: 07/27/20 SERVICE DATE: 08/07/20 Speech-Language Progress Note ATTENDING PHY: Marta Horvath DO Normal [facility] BMPon 08-06-2020 Anion gap [Moles/Vol] 5 mmol/L Normal 5-16 [facility] Comment on above: Order Comment: Campu s: M What is the source? URINE Performed By: #### M 150.97860, M150.24673 #### [facility] [place] [address] Calcium [Mass/Vol] 8.3 mg/dL Low 8.5-10.5 [facility] Comment on above: Order Comment: Campu s: M What is the source? URINE Result Comment: NOTE NEW NORMAL RANGE DUE TO REAGENT CHANGE Performed By: #### M 150.68939, M150.20339 #### [facility] [place] [address] Chloride [Moles/Vol] 108 mmol/L High 98-107 [facility] Comment on above: Order Comment: Campu s: M What is the source? URINE Performed By: #### M 150.98764, M150.53121 #### [facility] [address] [place] [address] CO2 [Moles/Vol] 28.0 mmol/L Normal 21-32 [facility] Comment on above: Order Comment: Campu s: M What is the source? URINE Performed By: #### M 150.48806, M150.43671 #### [facility] [address] [place] [address] Creatinine [Mass/Vol] 1.06 mg/dL High 0.510-0.950 [facility] Comment on above: Order Comment: Maciel s: M What is the source? URINE Result Comment: Geraldine ents receiving either N-Acetylcysteine (NAC) or Metamizole prior to venipuncture, may have falsely depressed results. Performed By: #### M 150.43920, M150.73396 #### [facility] [address] [place] [address] Glucose [Mass/Vol] 109 mg/dL High 70-100 [facility] Comment on above: Order Comment: Maciel s: M What is the source? URINE Result Comment: 70-1 00- Normal Fasting; 100-125 Impaired Fasting; greater than 126 on more than one result- Diabetes. ADA guidelines. Results may be falsely elevated after the administration of Sulfapyridine. Results may be falsely depressed after the administration of Sulfasalazine. Performed By: #### M 150.48073, M150.68687 #### [facility] [address] [place] [address] Potassium [Moles/Vol] 3.2 mmol/L Low 3.5-5.1 [facility] Comment on above: Order Comment: Maciel s: M What is the source? URINE Performed By: #### M 150.08478, M150.17678 #### [facility] [address] [place] [address] Sodium [Moles/Vol] 141 mmol/L Normal 136-145 [facility] Comment on above: Order Comment: Maciel s: M What is the source? URINE Performed By: #### M 150.88440, M150.19201 #### [facility] [address] [place] [address] Urea nitrogen [Mass/Vol] 36 mg/dL High 7-26 [facility] Comment on above: Order Comment: Abundiou s: M What is the source? URINE Performed By: #### M 150.41062, M150.59972 #### [facility] [address] [place] [address] Urea nitrogen/Creatinine [Mass ratio] 34 mg/mg High - [facility] Comment on above: Order Comment: Abundiou s: M What is the source? URINE Performed By: #### M 150.53191, M150.16025 #### [facility] [address] [place] [address] GFR ESTon 08-06-2020 IF AMER Greater than 60 Normal [facility] Comment on above: Order Comment: Campu s: M What is the source? URINE Performed By: #### M 150.57521, M150.73544 #### [facility] [address] [place] [address] IF non-AFR AMER 51 Normal [facility] Comment on above: Order Comment: Abundiou s: M What is the source? URINE Performed By: #### M 150.94159, M150.77108 #### [facility] [address] [place] [address] PROG [facility] 08-06-2020 PROG [facility] Patient Name: ANDRE BLANCA [address] [place] [address] NW Date of : [address] [address] Unit Number: [id number] Progress Note-Hospitalist Patient Status: ADM IN Attending Doctor: Marta Hrovath DO Service Date: 08/06/20 1723 Chief Complaint Chief Complaint Syncope Patient is a 70-year-old female with past medical history significant for CVA, hypothyroidism, COPD not on home oxygen, recurrent syncopal episodes presented to [facility] after a syncopal episode. Patient also reported [...] rash noticed. Diagnostic Data: Lab 24hr (CBC/BMP [facility]) 08/06/20 0749: [Embedded Image Not Available] Anion [...] Gloria Saxena MD Verified/Reviewed by 08/06/20 1727 [facility] Progress Note-Hospitalist [facility] PROG.Rocael 08-06-2020 PROG.[facility] Patient Name: ANDRE BLANCA [address] Date of : [address] [address] Unit Number: [id number] Progress Note-Front Office Manager Patient Status: ADM IN Attending Doctor: Marta Horvath DO Service Date: 08/06/20 1015 Progress Note-Front Office Manager Subjective Subjective: MS better, but still confused breathing is better Objective Vital Signs: Vital Signs (Last) Result Date Time Pulse Ox 92 08/06 700 B/P 117/57 08/06 700 B/P Mean 82 08/06 700 O2 Delivery [...] 1930 AC 08/05 (TYLENOL ORAL LIQ) TUBE 220 Albuterol Sulfate 2.5 MG Q6HPRN PRN 07/28 0030 AC (VENTOLIN/PROVENTIL INH 2.5MG/3ML INH.NEB) Albuterol/Ipratropium 3 ML Q4HRT 08/04 2030 AC 08/06 (DUONEB 0.5-3 MG/3 INH 0819 ML INH.NEB) Albuterol/Ipratropium 3 ML Q2HPRN PRN 07/28 0100 AC (DUONEB 0.5-3 MG/3 INH ML INH.NEB) Ampicillin Sodium/ 3 GM Q12H@18 08/04 1800 AC 08/06 Sulbactam Sodium IV 08/11 1759 0611 (UNASYN VIAL) Sodium Chloride 100 ML (Sodium [...] QHS 08/040 AC 08/05 (MELATONIN TAB) TUBE 220 Menthol/Methyl 1 APPL BIDPRN PRN 07/28 0030 AC 07/29 Salicylate TP 221 (MIHIR ALVAREZ T.CREAM) Ondansetron HCl 4 MG BIDPRN PRN 08/04 1930 AC (ZOFRAN TAB) TUBE Ondansetron HCl 4 MG Q6HPRN PRN 07/27 2100 AC 08/04 (ZOFRAN VIAL) IV 212 Pravastatin Sodium 40 MG QHS 08/04 2200 AC 08/05 (PRAVACHOL TAB) TUBE 220 Pregabalin 150 MG BID 08/04 2100 AC [...] and Former Tobacco Abuse presented to [facility] emergency department on 07/27 secondary to Syncope [...] Alonso MD Verified/Reviewed by 08/06/20 1017 Normal [facility] Progress Note-Front Office Manager Normal [facility] BMPon 08-05-2020 Anion gap [Moles/Vol] 6 mmol/L Normal 5-16 [facility] Comment on above: Order Comment: Abundiou s: M Minimal Draw: Y Performed By: #### L 500.38947, L500.36364 #### [facility] [address] [place] [address] Calcium [Mass/Vol] 8.6 mg/dL Normal 8.5-10.5 [facility] Comment on above: Order Comment: Abundiou s: M Minimal Draw: Y Result Comment: NOTE NEW NORMAL RANGE DUE TO REAGENT CHANGE Performed By: #### L 500.54238, L500.50089 #### [facility] [address] [place] [address] Chloride [Moles/Vol] 104 mmol/L Normal 98-107 [facility] Comment on above: Order Comment: Abundiou s: M Minimal Draw: Y Performed By: #### L 500.99921, L500.17861 #### [facility] [address] [place] [address] CO2 [Moles/Vol] 28.0 mmol/L Normal 21-32 [facility] Comment on above: Order Comment: Campu s: M Minimal Draw: Y Performed By: #### L 500.63589, L500.53794 #### [facility] [address] [place] [address] Creatinine [Mass/Vol] 2.01 mg/dL High 0.510-0.950 [facility] Comment on above: Order Comment: Campu s: M Minimal Draw: Y Result Comment: Geraldine ents receiving either N-Acetylcysteine (NAC) or Metamizole prior to venipuncture, may have falsely depressed results. Performed By: #### L 500.07853, L5.84398 #### [facility] [address] [place] [address] Glucose [Mass/Vol] 132 mg/dL High 70-100 [facility] Comment on above: Order Comment: Abundiou s: M Minimal Draw: Y Result Comment: 70-1 00- Normal Fasting; 100-125 Impaired Fasting; greater than 126 on more than one result- Diabetes. ADA guidelines. Results may be falsely elevated after the administration of Sulfapyridine. Results may be falsely depressed after the administration of Sulfasalazine. Performed By: #### L 500.42883, L500.66502 #### [facility] [address] [place] [address] Potassium [Moles/Vol] 3.6 mmol/L Normal 3.5-5.1 [facility] Comment on above: Order Comment: Campu s: M Minimal Draw: Y Performed By: #### L 500.67119, L500.79201 #### [facility] [address] [place] [address] Sodium [Moles/Vol] 138 mmol/L Normal 136-145 [facility] Comment on above: Order Comment: Campu s: M Minimal Draw: Y Performed By: #### L 500.55240, L500.00745 #### [facility] [address] [place] [address], [place] [address] Urea nitrogen [Mass/Vol] 54 mg/dL High 7-26 [facility] Comment on above: Order Comment: Campu s: M Minimal Draw: Y Performed By: #### L 500.31161, L500.00085 #### [facility] [address] [place] [address] Urea nitrogen/Creatinine [Mass ratio] 27 mg/mg High 15-24 [facility] Comment on above: Order Comment: Campu s: M Minimal Draw: Y Performed By: #### L 500.28241, L500.70058 #### [facility] [address] [place] [address] Anion gap [Moles/Vol] 8 mmol/L Normal 5-16 [facility] Comment on above: Order Comment: Campu s: M Performed By: #### L 200.90687 #### [facility] [address] [place] [address] Calcium [Mass/Vol] 9.1 mg/dL Normal 8.5-10.5 [facility] Comment on above: Order Comment: Campu s: M Result Comment: NOTE NEW NORMAL RANGE DUE TO REAGENT CHANGE Performed By: #### L 200.16267 #### [facility] [address] [place] [address] Chloride [Moles/Vol] 98 mmol/L Normal 98-107 [facility] Comment on above: Order Comment: Campu s: M Performed By: #### L 200.97729 #### [facility] [address] [place] [address] CO2 [Moles/Vol] 28.0 mmol/L Normal 21-32 [facility] Comment on above: Order Comment: Campu s: M Performed By: #### L 200.41036 #### [facility] [address] [place] [address] Creatinine [Mass/Vol] 3.19 mg/dL High 0.510-0.950 [facility] Comment on above: Order Comment: Abundiou s: M Result Comment: Geraldine ents receiving either N-Acetylcysteine (NAC) or Metamizole prior to venipuncture, may have falsely depressed results. Performed By: #### L 200.43020 #### [facility] [address] [place] [address] Glucose [Mass/Vol] 138 mg/dL High 70-100 [facility] Comment on above: Order Comment: Campu s: M Result Comment: 70-1 00- Normal Fasting; 100-125 Impaired Fasting; greater than 126 on more than one result- Diabetes. ADA guidelines. Results may be falsely elevated after the administration of Sulfapyridine. Results may be falsely depressed after the administration of Sulfasalazine. Performed By: #### L 200.60792 #### [facility] [address] [place] [address] Potassium [Moles/Vol] 3.9 mmol/L Normal 3.5-5.1 [facility] Comment on above: Order Comment: Abundiou s: M Result Comment: Slig ht Hemolysis, Result may be affected. Performed By: #### L 200.54057 #### [facility] [place] [address] Sodium [Moles/Vol] 134 mmol/L Low 136-145 [facility] Comment on above: Order Comment: Campu s: M Performed By: #### L 200.00349 #### [facility] [place] [address] Urea nitrogen [Mass/Vol] 60 mg/dL High 7-26 [facility] Comment on above: Order Comment: Campu s: M Performed By: #### L 200.76383 #### [facility] [address] [place] [address] Urea nitrogen/Creatinine [Mass ratio] 19 mg/mg Normal 15-24 [facility] Comment on above: Order Comment: Campu s: M Performed By: #### L 200.57664 #### [facility] [place] [address] CBC W/DIFFon 08-05-2020 BASO ABS 0.10 K/CU MM Normal 0-0.2 [facility] Comment on above: Order Comment: Campu s: M What is the source? URINE Performed By: #### M 150.50234, M150.03610 #### [facility] [address] [place] [address] Basophils/100 WBC (Bld) 0.4 % Normal 0-[address] [facility] Comment on above: Order Comment: Campu s: M What is the source? URINE Performed By: #### M 150.72122, M150.65439 #### [facility] [address] [place] [address] EOS ABS 0.10 K/CU MM Normal 0-0.5 [facility] Comment on above: Order Comment: Campu s: M What is the source? URINE Performed By: #### M 150.43349, M150.67932 #### [facility] [place] [address] Eosinophils/100 WBC (Bld) 0.6 % Normal 0-5 [facility] Comment on above: Order Comment: Campu s: M What is the source? URINE Performed By: #### M 150.98696, M150.68251 #### [facility] [place] [address] Erythrocyte distribution width (RBC) [Ratio] 14.2 % Normal 11-14.5 [facility] Comment on above: Order Comment: Campu s: M What is the source? URINE Performed By: #### M 150.54005, M150.06880 #### [facility] [address] [place], [place] [address] Hematocrit (Bld) [Volume fraction] 35.6 % Normal 35.0-47.0 [facility] Comment on above: Order Comment: Campu s: M What is the source? URINE Performed By: #### M 150.36162, M150.32002 #### [facility] [address] [place] [address] Hemoglobin (Bld) [Mass/Vol] 11.6 g/dL Normal 11.5-15.5 [facility] Comment on above: Order Comment: Campu s: M What is the source? URINE Performed By: #### M 150.10157, M150.74057 #### [facility] [address] [place] [address]3479 IMMATR GRAN ABS 0.10 K/CU MM Normal Less than 2 [facility] Comment on above: Order Comment: Campu s: M What is the source? URINE Performed By: #### M 150.22438, M150.83110 #### [facility] [address] [place] [address] IMMATURE GRAN % 0.4 % Normal Less than 2 [facility] Comment on above: Order Comment: Campu s: M What is the source? URINE Performed By: #### M 150.44454, M150.91571 #### [facility] [address] [place] [address]13 Lymphocytes (Bld) [#/Vol] 1.20 K/CU MM Normal 0.9-4.4 [facility] Comment on above: Order Comment: Campu s: M What is the source? URINE Performed By: #### M 150.39571, M150.39757 #### [facility] [address] [place] [address] 77144 Lymphocytes/100 WBC (Bld) 9.9 % Low 20-40 [facility] Comment on above: Order Comment: Campu s: M What is the source? URINE Performed By: #### M 150.05892, M150.31753 #### [facility] [address] [place] [address] 78150 MCHC (RBC) [Mass/Vol] 32.6 g/dL Normal 32.0-36.0 [facility] Comment on above: Order Comment: Campu s: M What is the source? URINE Performed By: #### M 150.99583, M150.60866 #### [facility] [address] [place], [place] [address] MCV (RBC) [Entitic vol] 90.1 fL Normal 80.0-99.0 [facility] Comment on above: Order Comment: Campu s: M What is the source? URINE Performed By: #### M 150.25158, M150.55989 #### [facility] [address] [place], [place] [address] MONO ABS 1.00 K/CU MM Normal 0.1-1.1 [facility] Comment on above: Order Comment: Campu s: M What is the source? URINE Performed By: #### M 150.35156, M150.30666 #### [facility] [address] [place] [address] Monocytes/100 WBC (Bld) 8.2 % Normal 2-[address] [facility] Comment on above: Order Comment: Campu s: M What is the source? URINE Performed By: #### M 150.39614, M150.20707 #### [facility] [address] [place] [address]472 NEUTROPHIL ABS 9.40 K/CU MM High 2.0-8.3 [facility] Comment on above: Order Comment: Campu s: M What is the source? URINE Performed By: #### M 150.44223, M150.96542 #### [facility] [address] [place] [address] 49137 Neutrophils/100 WBC (Bld) 80.5 % High 45-75 [facility] Comment on above: Order Comment: Campu s: M What is the source? URINE Performed By: #### M 150.55648, M150.28850 #### [facility] [address] [place] [address] Nucleated RBC/100 WBC (Bld) [Ratio] 0.0 % Normal Less than 1 [facility] Comment on above: Order Comment: Campu s: M What is the source? URINE Performed By: #### M 150.78671, M150.09128 #### [facility] [address] [place] [address] 36395 Platelet mean volume (Bld) [Entitic vol] 11.0 fL Normal 9.4-12.4 [facility] Comment on above: Order Comment: Campu s: M What is the source? URINE Performed By: #### M 150.27245, M150.69057 #### [facility] [address] [place] [address] Platelets (Bld) [#/Vol] 264 K/CU MM Normal 150-450 [facility] Comment on above: Order Comment: Campu s: M What is the source? URINE Performed By: #### M 150.14908, M150.01665 #### [facility] [place] [address] RBC (Bld) [#/Vol] 3.95 M/CU MM Normal 3.90-5.30 [facility] Comment on above: Order Comment: Campu s: M What is the source? URINE Performed By: #### M 150.24425, M150.38943 #### [facility] [address] [place] [address] WBC (Bld) [#/Vol] 11.7 K/CUMM High 4.5-11.0 [facility] Comment on above: Order Comment: Campu s: M What is the source? URINE Performed By: #### M 150.22574, M150.90373 #### [facility] [address] [place] [address] GFR ESTon 08-05-2020 IF AMER 30 Normal [facility] Comment on above: Order Comment: Campu s: M Minimal Draw: Y Performed By: #### L 500.50336, L500.66643 #### [facility] [address] [place], [place] [address] IF non-AFR AMER 24 [facility] Comment on above: Order Comment: Campu s: M Minimal Draw: Y Performed By: #### L 500.94471, L500.80412 #### [facility] [address] [place] [address] IF AMER 17 [facility] Comment on above: Order Comment: Campu s: M Performed By: #### L 200.15255 #### [facility] [address] [place] [address] IF non-AFR AMER 14 [facility] Comment on above: Order Comment: Campu s: M Performed By: #### L 200.06679 #### [facility] [address] [place] [address] MAGNESIUMon 08-05-2020 Magnesium [Mass/Vol] 1.8 MG/CL Normal 1.6-2.6 [facility] Comment on above: Order Comment: Campu s: M Performed By: #### L 200.07119 #### [facility] [address] [place], [place] [address] OTPNon 08-05-2020 OT Progress Note Normal [facility] OTPN Occupational Therapy Inpatient Treatment Note Medical Diagnosis: Acute hypoxemic respiratory failure, Syncope, pneumonia, hypothyroidism OCCUPATIONAL PROFILE AND HISTORY Demographics: Age: 70Y Gender: Female Primary Language: Rwandan Preferred Language: Rwandan Referring Service/Team: Medicine Rehabilitation Precautions/Restrictio ns: monitor BP fall risk HFNC Bilateral wrist restraints NPO, NG tube bed/chair alarm Patient Report: I want to take thsese off in reference to wrist restraints. Pt oriented [...] Upper Body Clothing: A little help needed [facility] PATIENT NAME: ANDRE BLANCA [facility] Dr. Andrea MEDICAL REC #: [id number] [place] [address] ADMIT DATE: 07/27/20 SERVICE DATE: 08/05/20 Occupational Therapy Progress Note ATTENDING DAMIAN: Marta Horvath DO Grooming: A little help [...] UP TO 10 MIN AT A TIME [facility] PATIENT NAME: ANDRE BLANCA [facility] Dr. Andrea MEDICAL REC #: [id number] [place] [address] ADMIT DATE: 07/27/20 SERVICE DATE: 08/05/20 Occupational Therapy Progress Note ATTENDING GIRISHY: Marta Horvath DO W/ MINIMAL TO NO [...] contact the Acute Therapy Department at extension [phone] Communication to Nursing: No updates at this time. Location of Patient at End of Therapy Session: In bed, bed alarm in place, call light within reach Services: Total Billed: 25 minutes (Timed: 25, Untimed: 0) 25.00 Timed: [64837] ADL-HOME MANAGEMENT EA 15 MIN 0.00 Untimed: [] OT Treatment General ORDER Signed by: KASEY Bryant 08/05/2020 16:53:57 [facility] PATIENT NAME: ANDRE BLANCA [address] [place] [address] Dr. Andrea MEDICAL REC #: [id number] [place] [address] ADMIT DATE: 07/27/20 SERVICE DATE: 08/05/20 Occupational Therapy Progress Note ATTENDING PHY: Marta Horvath DO Normal [facility] PHOSon 08-05-2020 Phosphate [Mass/Vol] 3.50 mg/dL Normal 2.5-4.9 [facility] Comment on above: Order Comment: Maciel s: Ramiro Minimal Draw: Y Result Comment: Elev ated m-protein (paraprotein) levels in the serum may be exhibited in patients with monoclonal gammopathies, causing falsely elevated inorganic phosphorus results. Performed By: #### L 500.14317, L500.51535 #### [facility] [address] [place] [address] [facility]: ANDRE BLANCA [address] Date of : [address] Unit Number: [id number] Progress Note-Hospitalist Patient Status: ADM IN Attending Doctor: Marta Horvath DO Service Date: 08/05/20 1601 Chief Complaint Chief Complaint Syncope Patient is a 70-year-old female with past medical history significant for CVA, hypothyroidism, COPD not on home oxygen, recurrent syncopal episodes presented to [facility] after a syncopal episode. Patient also reported [...] rash noticed. Diagnostic Data: Lab 24hr (CBC[facility]BMP [facility] 08/05/20 1535: Sodium Pending, Potassium Pending, Chloride [...] Gloria Saxena MD Verified/Reviewed by 08/05/20 1610 [facility] Progress Note-Hospitalist [facility] PROG.Rocael 08-05-2020 PROG.[facility] Patient Name: ANDRE BLANCA [address] Date of : [address] [place] [address] Unit Number: [id number] Progress Note-Front Office Manager Patient Status: ADM IN Attending Doctor: Marta Horvath DO Service Date: 08/05/20 0947 Progress Note-Front Office Manager Subjective Subjective: NG placed last evening, > 2 liters output still on high flow MS still compromised Objective Vital Signs: Vital Signs (Last) Result Date Time Pulse Ox 97 08/05 0700 B/P 105/60 08/05 0700 B/P Mean 77 08/05 0700 O2 Delivery HIGH FLOW NC 08/05 07 O2 Flow Rate 35L 08/05 0700 Pulse 92 08/05 0700 Resp 13 08/05 0700 Temp 98.6 08/05 0400 IandO 24 Hour [...] 1800 AC 08/05 Sulbactam Sodium IV 08/11 175 0559 (UNASYN VIAL) Sodium Chloride 100 ML (Sodium Chloride 0.9%) Budesonide 0.5 MG BID 08/04 2100 AC 08/05 (PULMOCORT 0.5MG/2ML INH 0920 INH.NEB) Buspirone HCl 20 MG TIDWM 08/05 08 AC (BUSPAR TAB) TUBE Carbamazepine 200 MG TIDWM 08/05 0800 AC (TEGRETOL TAB) TUBE Clopidogrel Bisulfate 75 MG QDAY 08/05 09 AC (PLAVIX TAB) TUBE Enoxaparin Sodium 40 [...] PRN 07/28 30 AC 07/29 Salicylate TP 2216 (MIHIR ALVAREZ T.CREAM) Ondansetron HCl 4 MG [...] 1622: Phosphorus 6.90 H, Magnesium 1.8 08/04/20 162: Ionized Calcium 0.97 L 08/04/20 1520: [Embedded [...] and Former Tobacco Abuse presented to [facility] emergency department on 07/27 secondary to Syncope [...] Morris Alonso MD Verified/Reviewed by 08/05/20 0951 [facility] Progress Note-Front Office Manager [facility] PTPNon 08-05-2020 PT Progress Note [facility] PTPN Physical Therapy Inpatient Treatment Note Medical Diagnosis: 1. Acute hypoxemic respiratory failure 2. Syncope 3. Hypothyroidism Demographics: Age: 70Y Gender: Female Primary Language: Rwandan Preferred Language: Rwandan Rehabilitation Precautions/Restrictio ns: NG tube, wrist restraints, high flow O2 SUBJECTIVE Patient Report: I don't know (when asked how she was feeling) Patient/Caregiver [...] reps of standing marches, heel raises, and [facility] PATIENT NAME: ANDRE BLANCA [facility] Dr. Andrea MEDICAL REC #: [id number] [place] [address] ADMIT DATE: 07/27/20 SERVICE DATE: 08/05/20 Physical [...] contact the Acute Therapy Department at extension [phone] Location of Patient at End of Therapy Session: In bed, bed alarm in place, call light within reach Services: Total Billed: 25 minutes (Timed: 25, Untimed: 0) [facility] MEDICAL REC #: [id number] [place] [address] ADMIT DATE: 07/27/20 SERVICE DATE: 08/05/20 Physical Therapy Progress Note ATTENDING PHY: Marta Horvath DO 25.00 Timed: [73182] THER ACTIVITIES / 15 MIN 0.00 Untimed: [] PT Treatment- General ORDER Signed by: Brianna Guy PT 08/05/2020 16:47:01 [facility] PAT[facility]: [facility] MEDICAL REC #: [id number] [place] [address] ADMIT DATE: 07/27/20 SERVICE DATE: 08/05/20 Physical Therapy Progress Note ATTENDING PHY: Marta Horvath DO [facility] ASSISTANT FINANCE MANAGER Progress Note Normal [facility] Speech/Language Pathology Inpatient Missed Visit Note Location: [...] contact the Acute Therapy Department at extension [phone] Signed by: LIAZBETH Taylor 08/05/2020 15:38:32 [facility] PATIENT NAME: ANDRE BLANCA [facility] Dr. Andrea MEDICAL REC #: [id number] [place] [id number] ADMIT DATE: 07/27/20 SERVICE DATE: 08/05/20 Speech-Language Progress Note ATTENDING PHY: Marta Horvath DO Normal [facility] UR EOS SMEARon 08-05-2020 UR EOS SMEAR Normal NONE SEEN [facility] Comment on above: Order Comment: Campu s: MMinimal Draw: Y Result Comment: 0 EO SINOPHILS PER 25 WBCs Performed By: #### L 600.18948 ####[id number] [place], [place] [address]Bk# [phone] ABGPon 08-04-2020 ABG BE 4.8 MML/L High -2.0-2.0 [facility] Comment on above: Order Comment: Campu s: MPatient's Anticoagulant? UNKNOWN Performed By: #### L 100.02525 ####[facility] [id number] [place], [place] [address]Mo# [phone] ABG COHBA 1.0 % Normal 0-10 [facility] Comment on above: Order Comment: Campu s: MPatient's Anticoagulant? UNKNOWN Performed By: #### L 100.42540 ####[facility] [id number] [place], [place] [address]Fu# [phone] ABG HCO3 30.2 MMOL/L High 22-26 [facility] Comment on above: Order Comment: Campu s: MPatient's Anticoagulant? UNKNOWN Performed By: #### L 100.43628 ####[facility] [id number] [place], [place] [address]Bj# [phone] ABG MET 0.0 % Low 0.4-1.5 [facility] Comment on above: Order Comment: Campu s: MPatient's Anticoagulant? UNKNOWN Performed By: #### L 100.27321 ####[facility] [id number] [place], [place] [address]Or# [phone] ABG O2 CAPACITY 20.1 mL/dL Normal [facility] Comment on above: Order Comment: Campu s: MPatient's Anticoagulant? UNKNOWN Performed By: #### L 100.89810 ####[facility] [id number] [place], [place] [address]Cb# [phone] ABG O2 CONTENT 17.0 mL/dL Normal 15.7-21.6 [facility] Comment on above: Order Comment: Campu s: MPatient's Anticoagulant? UNKNOWN Performed By: #### L 100.13319 ####[facility] [id number] [place], [place] [address]Cj# [phone] ABG O2HB SAT 83.0 % Critically low 90-100 [facility] Comment on above: Order Comment: Campu s: MPatient's Anticoagulant? UNKNOWN Result Comment: CRIT ICAL VALUE(S) VERIFIED AND CALLED TO AND READ BACK BY Betty HARPER RN AT 0010 08/04/20 BY BEVERLEY FLORES Performed By: #### L 100.88138 ####[facility] [id number] [place], [place] [address]Ab# [phone] ABG PCO2 47.5 MMHG High 35-45 [facility] Comment on above: Order Comment: Campu s: MPatient's Anticoagulant? UNKNOWN Performed By: #### L 100.21269 ####[facility] [id number] [place], [place] [address]Pe# [phone] ABG PH 7.42 Normal 7.35-7.45 [facility] Comment on above: Order Comment: Campu s: MPatient's Anticoagulant? UNKNOWN Performed By: #### L 100.95276 ####[facility] [id number] [place], [place] [address]Jl# [phone] ABG PO2 49 MMHG Critically low 80-100 [facility] Comment on above: Order Comment: Campu s: MPatient's Anticoagulant? UNKNOWN Result Comment: CRIT ICAL VALUE(S) VERIFIED AND CALLED TO AND READ BACK BY Betty HARPER RN AT 0010 08/04/20 BY BEVERLEY FLORES Performed By: #### L 100.68208 ####[facility] [id number] [place], [place] [address]Bl# [phone] DOUG TEST Positive Normal [facility] Comment on above: Order Comment: Campu s: MPatient's Anticoagulant? UNKNOWN Performed By: #### L 100.77354 ####[facility] [id number] [place], [place] [address]Re# [phone] aPTT Coag (Bld) [Time] 37.0 C Normal [facility] Comment on above: Order Comment: Campu s: MPatient's Anticoagulant? UNKNOWN Performed By: #### L 100.95800 ####[facility] [id number] [place], [place] [address]Yd# [phone] EQUIPMENT HIGH FLOW CANNULA Normal [facility] Comment on above: Order Comment: Campu s: MPatient's Anticoagulant? UNKNOWN Performed By: #### L 100.62376 ####[facility] [id number] [place], [place] [address]Ir# [phone] Hemoglobin (Bld) [Mass/Vol] 16.0 % Critically high 0-5 [facility] Comment on above: Order Comment: Campu s: MPatient's Anticoagulant? UNKNOWN Performed By: #### L 100.44302 ####[facility] [id number] [place], [place] [address]Oa# [phone] Hemoglobin (Bld) [Mass/Vol] 14.6 g/dL Normal 10-16 [facility] Comment on above: Order Comment: Campu s: MPatient's Anticoagulant? UNKNOWN Performed By: #### L 100.97789 ####[facility] [id number] [place], [place] [address]Pk# [phone] LITERFLOW 15.00 L/M Normal [facility] Comment on above: Order Comment: Campu s: MPatient's Anticoagulant? UNKNOWN Performed By: #### L 100.15852 ####[facility] [id number] [place], [place] [address]Py# [phone] Oxygen saturation in Blood 84 % Normal [facility] Comment on above: Order Comment: Campu s: MPatient's Anticoagulant? UNKNOWN Performed By: #### L 100.99741 ####[facility] [id number] [place], [place] [address]Vj# [phone] SAMPLE SITE L RADIAL Normal [facility] Comment on above: Order Comment: Campu s: MPatient's Anticoagulant? UNKNOWN Performed By: #### L 100.08865 ####[facility] [id number] [place], [place] [address]Fh# [phone] SAMPLE TYPE ARTERIAL Normal [facility] Comment on above: Order Comment: Campu s: MPatient's Anticoagulant? UNKNOWN Performed By: #### L 100.80095 ####[facility] [id number] [place], [place] [address]Pd# [phone] AMYon 08-04-2020 STAR 56 U/L Normal 25-115 [facility] Comment on above: Order Comment: Campu s: M Performed By: #### L 500.38970, L500.66082 ####[facility] [id number] [place], [place] [address]Yd# [phone] BMPon 08-04-2020 Anion gap [Moles/Vol] 11 mmol/L Normal 5-16 [facility] Comment on above: Order Comment: Campu s: MMinimal Draw: Y Performed By: #### L 500.41542, L500.95223 ####[facility] [id number] [place], [place] [address]Yc# [phone] Calcium [Mass/Vol] 8.8 mg/dL Normal 8.5-10.5 [facility] Comment on above: Order Comment: Campu s: MMinimal Draw: Y Result Comment: NOTE NEW NORMAL RANGE DUE TO REAGENT CHANGE Performed By: #### L 500.23218, L500.73973 ####[facility] [id number] [place], [place] [address]Bu# [phone] Chloride [Moles/Vol] 90 mmol/L Low 98-107 [facility] Comment on above: Order Comment: Campu s: MMinimal Draw: Y Performed By: #### L 500.17640, L500.27134 ####[facility] [id number] [place], [place] [address]Jv# [phone] CO2 [Moles/Vol] 29.0 mmol/L Normal 21-32 [facility] Comment on above: Order Comment: Campu s: MMinimal Draw: Y Performed By: #### L 500.43778, L500.34214 ####[facility] [id number] [place] [address]Al# [phone] Creatinine [Mass/Vol] 4.24 mg/dL High 0.510-0.950 [facility] Comment on above: Order Comment: Campu s: MMinimal Draw: Y Result Comment: Geraldine ents receiving either N-Acetylcysteine (NAC) or Metamizole prior to venipuncture, may have falsely depressed results. Performed By: #### L 500.76456, L500.39976 ####[facility] [id number] [place], [place] [address]Fu# [phone] Glucose [Mass/Vol] 178 mg/dL High 70-100 [facility] Comment on above: Order Comment: Campu s: MMinimal Draw: Y Result Comment: 70-1 00- Normal Fasting; 100-125 Impaired Fasting; greater than 126 on more than one result- Diabetes. ADA guidelines. Results may be falsely elevated after the administration of Sulfapyridine. Results may be falsely depressed after the administration of Sulfasalazine. Performed By: #### L 500.69857, L500.68291 ####[facility] [id number] [place], [place] [address]Wx# [phone] Potassium [Moles/Vol] 3.9 mmol/L Normal 3.5-5.1 [facility] Comment on above: Order Comment: Campu s: MMinimal Draw: Y Performed By: #### L 500.18411, L500.32483 ####[facility] [id number] [place], [place] [address]Sh# [phone] Sodium [Moles/Vol] 130 mmol/L Low 136-145 [facility] Comment on above: Order Comment: Campu s: MMinimal Draw: Y Performed By: #### L 500.46041, L500.28531 ####[facility] [id number] [place] [address]Zt# [phone] Urea nitrogen [Mass/Vol] 54 mg/dL High 7-26 [facility] Comment on above: Order Comment: Campu s: MMinimal Draw: Y Performed By: #### L 500.62465, L500.63970 ####[facility] [id number] [place] [address]Sw# [phone] Urea nitrogen/Creatinine [Mass ratio] 13 mg/mg Low 15-24 [facility] Comment on above: Order Comment: Campu s: MMinimal Draw: Y Performed By: #### L 500.71125, L500.40142 ####[facility] [id number] [place] [address]Sm# [phone] CBC W/DIFFon 08-04-2020 BASO ABS 0.10 K/CU MM Normal 0-0.2 [facility] Comment on above: Order Comment: Campu s: MMinimal Draw: Y Performed By: #### L 200.50075 ####[facility] [id number] [place] [address]Qk# [phone] Basophils/100 WBC (Bld) 0.4 % Normal 0-[address] [facility] Comment on above: Order Comment: Campu s: MMinimal Draw: Y Performed By: #### L 200.85821 ####[facility] [id number] [place], [place] [address]Ph# [phone] EOS ABS 0.10 K/CU MM Normal 0-0.5 [facility] [place] Comment on above: Order Comment: Campu s: MMinimal Draw: Y Performed By: #### L 200.72423 ####[address] [address]St# [phone] Eosinophils/100 WBC (Bld) 0.9 % Normal 0-5 [facility] [place] Comment on above: Order Comment: Campu s: MMinimal Draw: Y Performed By: #### L 200.61204 ####[place] [address]Ph# [phone] Erythrocyte distribution width (RBC) [Ratio] 14.1 % Normal 11-14.5 [facility] [place] Comment on above: Order Comment: Campu s: MMinimal Draw: Y Performed By: #### L 200.44841 ####[place] [address]Ph# [phone] Hematocrit (Bld) [Volume fraction] 43.7 % Normal 35.0-47.0 [facility] Comment on above: Order Comment: Campu s: MMinimal Draw: Y Performed By: #### L 200.19417 ####[address] [address]Wi# [phone] Hemoglobin (Bld) [Mass/Vol] 14.0 g/dL Normal 11.5-15.5 [facility] [place] Comment on above: Order Comment: Campu s: MMinimal Draw: Y Performed By: #### L 200.39992 ####[facility] [id number] [place], [place] [address]Ph# [phone] IMMATR GRAN ABS 0.00 K/CU MM Normal Less than 2 [facility] Comment on above: Order Comment: Campu s: MMinimal Draw: Y Performed By: #### L 200.88981 ####[facility] [id number] [place], [place] [address]Ph# [phone] IMMATURE GRAN % 0.3 % Normal Less than 2 [facility] Comment on above: Order Comment: Campu s: MMinimal Draw: Y Performed By: #### L 200.19677 ####[facility] [id number] [place] [address]Ph# [phone] Lymphocytes (Bld) [#/Vol] 0.80 K/CU MM Low 0.9-4.4 [facility] Comment on above: Order Comment: Campu s: MMinimal Draw: Y Performed By: #### L 200.52054 ####[place] [address]Ph# [phone] Lymphocytes/100 WBC (Bld) 6.5 % Low 20-40 [facility] Comment on above: Order Comment: Campu s: MMinimal Draw: Y Performed By: #### L 200.35197 ####[facility] [id number] [place], [place] [address]Ph# [phone] MCHC (RBC) [Mass/Vol] 32.0 g/dL Normal 32.0-36.0 [facility] Comment on above: Order Comment: Campu s: MMinimal Draw: Y Performed By: #### L 200.92171 ####[place] [address]Ph# [phone] MCV (RBC) [Entitic vol] 91.2 fL Normal 80.0-99.[address] [facility] Comment on above: Order Comment: Campu s: MMinimal Draw: Y Performed By: #### L 200.09701 ####[facility] [id number] [place], [place] [address]Ph# [phone] MONO ABS 0.90 K/CU MM Normal 0.1-1.1 [facility] Comment on above: Order Comment: Campu s: MMinimal Draw: Y Performed By: #### L 200.79146 ####[facility] [id number] [place], [place] [address]Ph# [phone] Monocytes/100 WBC (Bld) 6.9 % Normal 2-10 [facility] Comment on above: Order Comment: Campu s: MMinimal Draw: Y Performed By: #### L 200.74120 ####[facility] [id number] [place], [place] [address]Nh# [phone] NEUTROPHIL ABS 10.90 K/CU MM High 2.0-8.3 [facility] Comment on above: Order Comment: Campu s: MMinimal Draw: Y Performed By: #### L 200.34108 ####[facility] [id number] [place], [place] [address]Ph# [phone] Neutrophils/100 WBC (Bld) 85.0 % High 45-75 [facility] Comment on above: Order Comment: Campu s: MMinimal Draw: Y Performed By: #### L 200.95315 ####[facility] [id number] [place], [place] [address]Ph# [phone] Nucleated RBC/100 WBC (Bld) [Ratio] 0.0 % Normal Less than 1 [facility] Comment on above: Order Comment: Campu s: MMinimal Draw: Y Performed By: #### L 200.18813 ####[facility] [id number] [place] [address]Wt# [phone] Platelet mean volume (Bld) [Entitic vol] 11.0 fL Normal 9.4-12.4 [facility] Comment on above: Order Comment: Campu s: MMinimal Draw: Y Performed By: #### L 200.77259 ####[facility] [id number] [place] [address]Vb# [phone] Platelets (Bld) [#/Vol] 377 K/CU MM Normal 150-450 [facility] Comment on above: Order Comment: Campu s: MMinimal Draw: Y Performed By: #### L 200.80196 ####[facility] [id number] [place], [place] [address]Ph# [phone] RBC (Bld) [#/Vol] 4.79 M/CU MM Normal 3.90-5.30 [facility] Comment on above: Order Comment: Campu s: MMinimal Draw: Y Performed By: #### L 200.75586 ####[facility] [id number] [place], [place] [address]Da# [phone] WBC (Bld) [#/Vol] 12.9 K/CUMM High 4.5-11.0 [facility] Comment on above: Order Comment: Campu s: MMinimal Draw: Y Performed By: #### L 200.42889 ####[facility] [id number] [place], [place] [address]Ya# [phone] CONS.INTENon 08-04-2020 CONS.INTEN [facility] Patient Name: ANDRE BLANCA [address] [facility] [address] Date of : [address] [place] [address] Unit Number: [id number] Consultation-Intensivi st Patient Status: ADM IN Attending Doctor: Marta Horvath DO Service Date: 08/04/20 6619 History of Present Illness Referring Physician Gloria Saxena MD Consulted Provider Morris Alonso MD Source of Information Patient Reason for Consult Acute Hypoxic Respiratory Failure History of Present Illness 70 y/o with PMHx of COPD, HFpEF, CVA, and Former Tobacco Abuse presented to [facility] emergency department on 07/27 secondary to Syncope [...] URIBE on 04/16/171952 Last Action: Reviewed on 08/04/20 1618 by GLORIA SAXENA Albuterol Sulfate (Proair Hfa [...] GASTON URIBE on 04/16/17 195 Last Action: Reviewed on 08/04/201617 by GLORIA SAXENA Pravastatin Sodium* (Pravachol 40MG Tab*) 40 MG TABLET 40 MG PO QHS, Ref 0 (Reported) Entered as Reported by COSME GARCIA on 02/22/19 161 Last Action: Reviewed on 08/04/201617 by GLORIA SAXENA Pregabalin* (Lyrica Cap*) 150 MG CAPSULE 150 MG PO BID, Ref 0 (Reported) Entered as Reported by CSOME GARCIA on 02/22/19 161 Last Action: Reviewed on 08/04/201617 by GLORIA SAXENA Risperidone* (Risperdal 3MG Tab*) 3 MG TABLET 3 MG PO BID, Ref 0 (Reported) Entered as Reported by COSME GARCIA on 07/12/19 1612 Last Action: Reviewed on 08/04/20 1618 by GLORIA SAXENA Inpatient Medications Medications Current [...] 0939 Levothyroxine Sodium 0.125 MG QDAYAC 07/28 07 AC 08/04 (SYNTHROID TAB) PO 0602 Loperamide HCl 2 MG PRN PRN 07/28 1200 AC 07/29 (IMODIUM CAP) PO 2026 Melatonin 3 MG QHS 07/28 100 AC 08/03 (MELATONIN TAB) PO 2004 Menthol/Methyl [...] and Former Tobacco Abuse presented to [facility] emergency department on 07/27 secondary to Syncope [...] errors may exist. eSign Date and Time YifanSabrina M ASW/ASUW TACTICAL AIR CONTROLLER Verified/Reviewed by 08/05/20 0716 Morris Alonso MD [facility] Consultation-Intensivis t [facility] GFR ESTon 08-04-2020 IF AMER 12 [facility] Comment on above: Order Comment: Campu s: MMinimal Draw: Y Performed By: #### L 500.20882, L500.50860 ####[facility] [id number] [place], [place] [address]Vk# [phone] IF non-AFR AMER 10 [facility] Comment on above: Order Comment: Campu s: MMinimal Draw: Y Performed By: #### L 500.07644, L500.53938 ####[facility] [id number] [place], [place] [address]Zd# [phone] IONIZED CAon 08-04-2020 IONIZED CA 0.97 MMOL/L Low 1.16-1.32 [facility] Comment on above: Order Comment: Campu s: M Performed By: #### L 550.52009 #### [facility] [address] [place] [address] LACTIC ACIDon 08-04-2020 Lactate [Moles/Vol] 1.14 mmol/L Normal 0.40-2.00 [facility] Comment on above: Order Comment: Campu s: M Performed By: #### L 200.12313 #### [facility] [address] [facility] [place] [address] LIPASEon 08-04-2020 Lipase [Catalytic activity/Vol] 24 U/L Normal 12-60 [facility] Comment on above: Order Comment: Campu s: M Result Comment: Slig ht Hemolysis, Result may be affected. NOTE NEW NORMAL RANGE DUE TO REAGENT CHANGE Performed By: #### L 500.84117, L500.28923 ####[facility] [id number] [place], [place] [address]Me# [phone] MAGNESIUMon 08-04-2020 Magnesium [Mass/Vol] 1.8 MG/CL Normal 1.6-2.6 [facility] Comment on above: Order Comment: Campu s: M Performed By: #### L 500.54761, L500.32600 ####[facility] [id number] [place], [place] [address]Hx# [phone] PHOSon 08-04-2020 Phosphate [Mass/Vol] 6.90 mg/dL High 2.5-4.9 [facility] Comment on above: Order Comment: Campu s: M What is the source? URINE Result Comment: Elev ated m-protein (paraprotein) levels in the serum may be exhibited in patients with monoclonal gammopathies, causing falsely elevated inorganic phosphorus results. Performed By: #### M 150.03413, M150.29695 #### [facility] [address] [place], [place] [address] PROG IMS 08-04-2020 PROG [facility] Patient Name: ANDRE BLANCA [address] [facility] [address] Date of : [address] [place] [address] Unit Number: [id number] Progress Note-Hospitalist Patient Status: ADM IN Attending Doctor: Marta Horvath DO Service Date: 08/04/20 7193 Chief Complaint Chief Complaint Syncope Patient is a 70-year-old female with past medical history significant for CVA, hypothyroidism, COPD not on home oxygen, recurrent syncopal episodes presented to [facility] after a syncopal episode. Patient also reported [...] rash noticed. Diagnostic Data: Lab 24hr (CBC/BMP [facility]) 08/04/20 1622: Phosphorus 6.90 H, Magnesium 1.8 [...] Time Gloria Saxena MD Verified/Reviewed by 08/04/20 7195 [facility] Progress Note-Hospitalist [facility] PTPNon 08-04-2020 PT Progress Note [facility] PTPN Physical Therapy Inpatient Treatment Note Medical Diagnosis: 1. Acute hypoxemia respiratory failure 2. Syncope 3. Hypothyroidism Demographics: Age: 70Y Gender: Female Primary Language: Rwandan Preferred Language: Rwandan Rehabilitation Precautions/Restrictio ns: monitor BP fall risk 02 to maintain stats SUBJECTIVE Patient Report: I don;t know (when asked how she was feeling) Patient/Caregiver [...] No updates required at this time. ASSESSMENT [facility] PATIENT NAME: ANDRE BLANCA [facility] [address] Andrea MEDICAL REC #: [id number] [place] [address] ADMIT DATE: 07/27/20 SERVICE DATE: 08/04/20 Physical Therapy Progress Note ATTENDING DAMIAN: Marta Horvath DO Response to Visit: Limited [...] contact the Acute Therapy Department at extension [phone] Location of Patient at End of Therapy Session: In bed, bed alarm in place, call light within reach Services: Total Billed: 17 minutes (Timed: 17, Untimed: 0) 17.00 Timed: [00282] THERAPEUTIC EXERCISE EA 15 MIN 0.00 Untimed: [] PT Treatment- General ORDER Signed by: RENALDO BENAVIDES, 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 08/04/2020 16:33:33 - CoSigned By: Brianna Guy, PT 08/04/2020 5:19:11 PM [facility] PATIENT NAME: ANDRE BLANCA [facility] [address] Andrea MEDICAL REC #: [id number] [place] [address] ADMIT DATE: 07/27/20 SERVICE DATE: 08/04/20 Physical Therapy Progress Note ATTENDING PHY: [facility]ath [facility] ASSISTANT FINANCE MANAGER Assessment Report Normal [facility] Speech/Language Pathology Inpatient Clinical Swallow Evaluation Medical Diagnosis: Acute hypoxemic respiratory failure Therapy Diagnosis: Rank Code Description 1 R13.10 Dysphagia, unspecified Demographics: Age: 70Y Gender: Female Primary Language: Rwandan Preferred Language: Rwandan Referring Service/Team: Medicine Past Medical History: PMHx: [...] Illness 70-year-old female, primary care through the [facility], past medical history CVA, hypothyroidism, COPD not on home oxygen, recurrent syncopal episodes in the past that she states have been worked up by her physicians at the [facility], testing done at the [facility] and here at [facility], concluding that she has low blood pressure. She does not feel like her syncopal [...] historian and seems to be reliable historian. [facility] PATIENT NAME: ANDRE BLANCA [facility] [address] Andrea MEDICAL REC #: [id number] [place] [address] ADMIT DATE: 07/27/20 SERVICE DATE: 08/04/20 Speech-Language Assessment Report ATTENDING GIRISHY: Marta Horvath DO 08/04/2020: recent chest xray [...] PO trials due to not being hungry/nauseated [facility] PATIENT NAME: ANDRE BLANCA [facility] [address] Andrea MEDICAL REC #: [id number] [place] [id number] ADMIT DATE: 07/27/20 SERVICE DATE: 08/04/20 Speech-Language Assessment Report ATTENDING DAMIAN: Marta Horvath DO Compensatory Strategies: Not tested. [...] status during a meal or snack with ASSISTANT FINANCE MANAGER. PLAN Treatment Frequency, Duration and Interventions: Speech/Language [...] Unclear if the pt comprehended this POC [facility] PATIENT NAME: ANDRE BLANCA Dr. Andrea MEDICAL REC #: [id number] [place] [address] ADMIT DATE: 07/27/20 SERVICE DATE: 08/04/20 Speech-Language Assessment Report ATTENDING PHY: Marta Horvath DO If there are any questions regarding this service, please contact the Acute Therapy Department at extension [phone] Communication to Nursing: No updates at this time. Location of Patient at End of Therapy Session: In bed, bed alarm in place, call light within reach Services: Total Billed: 45 minutes (Timed: 0, Untimed: 45) 45.00 Untimed: [25905] BDSIDE SWALLOW EVAL 0.00 Untimed: [] Speech Treatment ORDER Signed by: LIZABETH Jack 08/04/2020 11:27:19 [facility] PATIENT NAME: ANDRE BLANCA Dr. Andrea MEDICAL REC #: [id number] [place] [address] ADMIT DATE: 07/27/20 SERVICE DATE: 08/04/20 Speech-Language Assessment Report ATTENDING PHY: Marta Horvath DO Normal [facility] UA COMPLETEon 08-04-2020 Color (U) Alma Normal [facility] Comment on above: Order Comment: Maciel s: M What is the source? URINE Performed By: #### M 150.11415, M150.30314 #### [facility] [address] [id number] Glucose (U) [Mass/Vol] Negative Normal NORMAL [facility] Comment on above: Order Comment: Maciel s: M What is the source? URINE Performed By: #### M 150.56066, M150.51024 #### [facility] [address] [place] [address] HYALINE CAST 38 /LPF High 0-1 [facility] Comment on above: Order Comment: Campu s: M What is the source? URINE Performed By: #### M 150.17841, M150.62369 #### [facility] [address] [place] [address] Mucus Ql (Urine sed) TRACE Normal NEGATIVE [facility] Comment on above: Order Comment: Campu s: M What is the source? URINE Performed By: #### M 150.06390, M150.81489 #### [facility] [address] [place] [address] SQUAMOUS EPIS 0 EPI/HPF Normal 0-5 [facility] Comment on above: Order Comment: Campu s: M What is the source? URINE Performed By: #### M 150.05422, M150.57945 #### [facility] [address] [place] [address] UA APPEARANCE Hazy Normal CLEAR [facility] Comment on above: Order Comment: Campu s: M What is the source? URINE Performed By: #### M 150.41531, M150.44062 #### [facility] [address] [place] [address] UA BACTERIA TRACE Normal NONE [facility] Comment on above: Order Comment: Campu s: M What is the source? URINE Performed By: #### M 150.82974, M150.58786 #### [facility] [address] [place] [address] UA BILIRUBIN Negative Normal NEGATIVE [facility] Comment on above: Order Comment: Campu s: M What is the source? URINE Performed By: #### M 150.19526, M150.45472 #### [facility] [address] [place] [address] UA BLOOD Negative Normal NEGATIVE [facility] Comment on above: Order Comment: Campu s: M What is the source? URINE Performed By: #### M 150.49505, M150.91204 #### [facility] [address] [facility] [place] [address] UA KETONE Negative Normal NEGATIVE [facility] Comment on above: Order Comment: Campu s: M What is the source? URINE Performed By: #### M 150.61695, M150.69810 #### [facility] [address] [place] [address] UA LK ESTERASE Negative Normal NEGATIVE [facility] Comment on above: Order Comment: Abundiou s: M What is the source? URINE Performed By: #### M 150.91430, M150.96574 #### [facility] [address] [place] [address] UA NITRITE Negative Normal NEGATIVE [facility] Comment on above: Order Comment: Abundiou s: M What is the source? URINE Performed By: #### M 150.40351, M150.87583 #### [facility] [address] [place] [address] UA PH 5.0 Normal 5-6 [facility] Comment on above: Order Comment: Campu s: M What is the source? URINE Performed By: #### M 150.08957, M150.53906 #### [facility] [address] [facility] [place] [address] UA PROTEIN 30 Normal NEGATIVE [facility] Comment on above: Order Comment: Abundiou s: M What is the source? URINE Performed By: #### M 150.68854, M150.89097 #### [facility] [address] [place] [address] UA RBC 1 RBC/HPF Normal 0-3 [facility] Comment on above: Order Comment: Abundiou s: M What is the source? URINE Performed By: #### M 150.44181, M150.93979 #### [facility] [address] [place] [address] UA SPEC GRAV 1.028 Normal 1.005-1.030 [facility] Comment on above: Order Comment: Abundiou s: M What is the source? URINE Performed By: #### M 150.06207, M150.64166 #### [facility] [address] [place] [address] UA UROBILINOGEN Negative Normal NORMAL [facility] Comment on above: Order Comment: Abundiou s: M What is the source? URINE Performed By: #### M 150.28135, M150.85357 #### [facility] [address] [place] [address] UA WBC 1 WBC/HPF Normal 0-5 [facility] Comment on above: Order Comment: Abundiou s: M What is the source? URINE Performed By: #### M 150.48051, M150.33159 #### [facility] [address] [place] [address] OTPNon 08-03-2020 OT Progress Note Normal [facility] OTPN Occupational Therapy Inpatient Treatment Note Medical Diagnosis: Acute hypoxemic respiratory failure, Syncope, pneumonia, hypothyroidism OCCUPATIONAL PROFILE AND HISTORY Demographics: Age: 70Y Gender: Female Primary Language: Rwandan Preferred Language: Rwandan Referring Service/Team: Medicine Rehabilitation Precautions/Restrictio ns: monitor BP, fall risk, bed chair alarm Patient Report: Pt confused at times. I feel really nauseated Pt agreeable to [...] bed mobility including supine to sit, rolling, [facility] PATIENT NAME: ANDRE BLANCA [facility] [address] Andrea MEDICAL REC #: [id number] [place] [address] ADMIT DATE: 07/27/20 SERVICE DATE: 08/03/20 Occupational Therapy Progress Note ATTENDING GIRISHY: Marta Horvath DO scooting. requiring minimal assistance. [...] AROUND THE HOUSE - Not Met ongoing [facility] PATIENT NAME: ANDRE BLANCA [facility] [address] Andrea MEDICAL REC #: [id number] [place] [address] ADMIT DATE: 07/27/20 SERVICE DATE: 08/03/20 Occupational [...] contact the Acute Therapy Department at extension [phone] Communication to Nursing: No updates at this time. Location of Patient at End of Therapy Session: In chair, chair alarm in place, call light within reach Services: Total Billed: 25 minutes (Timed: 25, Untimed: 0) 25.00 Timed: [07406] ADL-HOME MANAGEMENT EA 15 MIN 0.00 Untimed: [] OT Treatment General ORDER Signed by: VASHTI Montejo OTR/Asuncion 08/03/2020 14:41:25 [facility] PATIENT NAME: ANDRE BLANCA [facility] [address] Andrea MEDICAL REC #: [id number] [place] [address] ADMIT DATE: 07/27/20 SERVICE DATE: 08/03/20 Occupational Therapy Progress Note ATTENDING PHY: Marta Horvath DO [facility]: [facility] [address] Date of : [address] [address] Unit Number: [id number] Progress Note-Hospitalist Patient Status: ADM IN Attending Doctor: Marta Horvath DO Service Date: 08/03/20 1728 Chief Complaint Chief Complaint Syncope Patient is a 70-year-old female with past medical history significant for CVA, hypothyroidism, COPD not on home oxygen, recurrent syncopal episodes presented to [facility] after a syncopal episode. Patient also reported [...] Time Gloria Saxena MD Verified/Reviewed by 08/03/20 8882 [facility] Progress Note-Hospitalist [facility] PTPNon 08-03-2020 PT Progress Note [facility] PTPN Physical Therapy Inpatient Treatment Note Medical Diagnosis: 1. Acute hypoxemia respiratory failure 2. Syncope 3. Hypothyroidism Demographics: Age: 70Y Gender: Female Primary Language: Rwandan Preferred Language: Rwandan Rehabilitation Precautions/Restrictio ns: monitor BP fall risk SUBJECTIVE Patient Report: I can't eat makes me want to throw up. Pt c/o nausea and dizziness. Patient/Caregiver Goals: [...] x several trials w/ MIN A w/ LEs buckling slightly and pt wanting to sit [...] Activities: Bed mobility, sitting and standing balance, [facility] PATIENT NAME: ANDRE BLANCA [facility] [address] Andrea MEDICAL REC #: [id number] [place] [address] ADMIT DATE: 07/27/20 SERVICE DATE: 08/03/20 Physical [...] contact the Acute Therapy Department at extension [phone] Location of Patient at End of Therapy Session: In chair, chair alarm in place, call light within reach Services: Total Billed: 28 minutes (Timed: 28, Untimed: 0) [facility] MEDICAL REC #: [id number] [place] [address] ADMIT DATE: 07/27/20 SERVICE DATE: 08/03/20 Physical Therapy Progress Note ATTENDING PHY: Marta Horvath DO 28.00 Timed: [86618] THER ACTIVITIES / 15 MIN 0.00 Untimed: [] PT Treatment- General ORDER Signed by: RENALDO BENAVIDES PTA 08/03/2020 14:47:11 - CoSigned By: Jason Toth PT, DPT 08/03/2020 2:48:36 PM [facility] MEDICAL REC #: [id number] [place] [address] ADMIT DATE: 07/27/20 SERVICE DATE: 08/03/20 Physical Therapy Progress Note ATTENDING PHY: Marta Horvath DO Normal [facility] Name: ANDRE BLANCA [facility] [place] [address] Date of : [address] [place], [place] [address] Unit Number: [id number] Progress Note-Hospitalist Patient Status: ADM IN Attending Doctor: Marta Horvath DO Service Date: 08/02/20 1517 Chief Complaint Chief Complaint Syncope Patient is a 70-year-old female with past medical history significant for CVA, hypothyroidism, COPD not on home oxygen, recurrent syncopal episodes presented to [facility] after a syncopal episode. Patient also reported [...] is aware that she is going to residential, pending placement at this time. Objective (ROS) [...] Gloria Saxena MD Verified/Reviewed by 08/02/20 1518 [facility] Progress Note-Hospitalist [facility] 08-01-2020 PR[facility] Patient Name: ANDRE BLANCA [address] Date of : [address] [address] Unit Number: [id number] Progress Note-Hospitalist Patient Status: ADM IN Attending Doctor: Marta Horvath DO Service Date: 08/01/20 175 Chief Complaint Chief Complaint Syncope Patient is a 70-year-old female with past medical history significant for CVA, hypothyroidism, COPD not on home oxygen, recurrent syncopal episodes presented to [facility] after a syncopal episode. Patient also reported [...] Ox 93 08/01 1551 B/P 117/55 08/01 155 O2 Delivery NASAL CANNULA 08/01 1551 O2 Flow Rate 3L 08/01 1551 Temp 98.2 08/01 155 Pulse 87 08/01 155 Resp 20 08/01 155 Physical Exam Physical Examination Notes General: Pt [...] Gloria Saxena MD Verified/Reviewed by 08/01/20 1800 [facility] Progress Note-Hospitalist [facility] OTon 07-31-2020 OT Progress Note [facility] OT Occupational Therapy Inpatient Treatment Note Medical Diagnosis: 1. Acute hypoxemic respiratory failure 2. Syncope OCCUPATIONAL PROFILE AND HISTORY Demographics: Age: 70Y Gender: Female Primary Language: Rwandan Preferred Language: Rwandan Referring Service/Team: Medicine Rehabilitation Precautions/Restrictio ns: monitor BP fall risk Patient Report: Pt was pleasant and agreeable to therapy, some moderate confusion noted at times but pt was Ox 4. Pt attempting to wrap her call light in BP cuff upon arrival stating this goes in here somehow but I dont know how When asked if she knew what either [...] needed Toileting: A lot of help needed [facility] PATIENT NAME: ANDRE BLANCA [facility] [address] Andrea MEDICAL REC #: [id number] [place] [address] ADMIT DATE: 07/27/20 SERVICE DATE: 07/31/20 Occupational [...] STRENGTH/PULMONARY ENDURANCE TO DO ADL PROJECTED WHILE [facility] PATIENT NAME: ANDRE BLANCA [facility] [address] Andrea MEDICAL REC #: [id number] [place] [address] ADMIT DATE: 07/27/20 SERVICE DATE: 07/31/20 Occupational Therapy Progress Note ATTENDING PHY: Kian,Marta M DO MAINTAINING O2 SATS ABOVE 92 - [...] contact the Acute Therapy Department at extension [phone] Communication to Nursing: No updates at this time. Location of Patient at End of Therapy Session: In chair, call light within reach Services: Total Billed: 25 minutes (Timed: 25, Untimed: 0) 25.00 Timed: [93618] ADL-HOME MANAGEMENT EA 15 MIN 0.00 Untimed: [] OT Treatment General ORDER Signed by: SIMONA Olmstead 07/31/2020 15:41:11 - CoSigned By: VASHTI Montejo OTR/Asuncion 07/31/2020 3:51:03 PM [facility] PATIENT NAME: ANDRE BLANCA [facility] [address] Andrea MEDICAL REC #: [id number] [place] [address] ADMIT DATE: 07/27/20 SERVICE DATE: 07/31/20 Occupational Therapy Progress Note ATTENDING PHY: Marta Horvath DO Normal [facility] [address] 07-31-2020 [facility] Patient Name: ANDRE BLANCA [address] Date of : [address] [address] Unit Number: [id number] Progress Note-Hospitalist Patient Status: ADM IN Attending Doctor: Marta Horvath DO Service Date: 07/31/20 1550 Chief Complaint Chief Complaint Syncope Patient is a 70-year-old female with past medical history significant for CVA, hypothyroidism, COPD not on home oxygen, recurrent syncopal episodes presented to [facility] after a syncopal episode. Patient also reported [...] Gloria Saxena MD Verified/Reviewed by 07/31/20 1552 [facility]ist [facility] PT Progress Note [facility] PTPN Physical Therapy Inpatient Treatment Note Medical Diagnosis: 1. Acute hypoxemic respiratory failure 2. Syncope 3. Hypothyroidism Demographics: Age: 70Y Gender: Female Primary Language: Rwandan Preferred Language: Rwandan Rehabilitation Precautions/Restrictio ns: monitor BP fall risk [...] Modifier = CK Vital Signs: Not assessed. [facility] PATIENT NAME: ANDRE BLANCA [facility] [address] Andrea MEDICAL REC #: [id number] [place] [address] ADMIT DATE: 07/27/20 SERVICE DATE: 07/31/20 Physical [...] Physical Therapy, LESS THAN 60 minutes per [facility] PATIENT NAME: ANDRE BLANCA [facility] [address] Andrea MEDICAL REC #: [id number] [place] [address] ADMIT DATE: 07/27/20 SERVICE DATE: 07/31/20 Physical Therapy Progress Note ATTENDING DAMIAN: Marta Horvath. Recommended Equipment: None issued this visit. Recommended Consults: None currently. Development of Plan of Care: There was no change to plan of care today. If there are any questions regarding this service, please contact the Acute Therapy Department at extension [phone] Location of Patient at End of Therapy Session: In chair, call light within reach Services: Total Billed: 30 minutes (Timed: 30, Untimed: 0) 10.00 Timed: [87016] THER ACTIVITIES / 15 MIN 20.00 Timed: [42337] THERAPEUTIC EXERCISE EA 15 MIN 0.00 Untimed: [] PT Treatment- General ORDER Signed by: Kiki Cheung PT 07/31/2020 15:34:50 [facility] PATIENT NAME: ANDRE BALNCA [facility] Dr. Andrea MEDICAL REC #: [id number] [place] [address] ADMIT DATE: 07/27/20 SERVICE DATE: 07/31/20 Physical Therapy Progress Note ATTENDING PHY: Marta Horvath DO Normal [facility] BMPon 07-30-2020 Anion gap [Moles/Vol] 5 mmol/L Normal 5-16 [facility] Comment on above: Order Comment: Abundiou s: M Minimal Draw: Y Performed By: #### L 500.04144, L500.00183 #### [facility] [address] [place] [address] Calcium [Mass/Vol] 9.2 mg/dL Normal 8.5-10.5 [facility] Comment on above: Order Comment: Abunidou s: M Minimal Draw: Y Result Comment: NOTE NEW NORMAL RANGE DUE TO REAGENT CHANGE Performed By: #### L 500.31590, L500.17223 #### [facility] [address] [place], [place] [address] Chloride [Moles/Vol] 105 mmol/L Normal 98-107 [facility] Comment on above: Order Comment: Campu s: M Minimal Draw: Y Performed By: #### L 500.16811, L500.61855 #### [facility] [address] [place] [address] CO2 [Moles/Vol] 30.0 mmol/L Normal 21-32 [facility] Comment on above: Order Comment: Campu s: M Minimal Draw: Y Performed By: #### L 500.96196, L500.02624 #### [facility] [address] [place] [address] Creatinine [Mass/Vol] 0.94 mg/dL Normal 0.510-0.950 [facility] Comment on above: Order Comment: Maciel s: M Minimal Draw: Y Result Comment: Geraldine ents receiving either N-Acetylcysteine (NAC) or Metamizole prior to venipuncture, may have falsely depressed results. Performed By: #### L 500.67846, L500.84182 #### [facility] [address] [place] [address] Glucose [Mass/Vol] 136 mg/dL High 70-100 [facility] Comment on above: Order Comment: Maciel joe: Ramiro Minimal Draw: Y Result Comment: 70-1 00- Normal Fasting; 100-125 Impaired Fasting; greater than 126 on more than one result- Diabetes. ADA guidelines. Results may be falsely elevated after the administration of Sulfapyridine. Results may be falsely depressed after the administration of Sulfasalazine. Performed By: #### L 500.06199, L500.38427 #### [facility] [address] [place] [address] Potassium [Moles/Vol] 3.8 mmol/L Normal 3.5-5.1 [facility] Comment on above: Order Comment: Maciel s: M Minimal Draw: Y Result Comment: Slig ht Hemolysis, Result may be affected. Performed By: #### L 500.98789, L500.62419 #### [facility] [address] [place] [address] Sodium [Moles/Vol] 140 mmol/L Normal 136-145 [facility] Comment on above: Order Comment: Maciel s: M Minimal Draw: Y Performed By: #### L 500.30271, L500.70256 #### [facility] [place] [address] Urea nitrogen [Mass/Vol] 10 mg/dL Normal 7-26 [facility] Comment on above: Order Comment: Abundiou s: M Minimal Draw: Y Performed By: #### L 500.37643, L500.87267 #### [facility] [address] [place], [place] [address] Urea nitrogen/Creatinine [Mass ratio] 11 mg/mg Low 15-24 [facility] Comment on above: Order Comment: Abundiou s: M Minimal Draw: Y Performed By: #### L 500.64364, L500.10237 #### [facility] [address] [place] [address] GFR ESTon 07-30-2020 IF AMER Greater than 60 Normal [facility] Comment on above: Order Comment: Abundiou s: M Minimal Draw: Y Performed By: #### L 500.96601, L500.86879 #### [facility] [address] [place] [address] IF non-AFR AMER 59 Normal [facility] Comment on above: Order Comment: Abundiou s: M Minimal Draw: Y Performed By: #### L 500.92097, L500.68476 #### [facility] [address] [place], [place] [address] OTPNon 07-30-2020 OT Progress Note Normal [facility] OTPN Occupational Therapy Inpatient Treatment Note Medical Diagnosis: 1. Acute hypoxemic respiratory failure 2. Syncope OCCUPATIONAL PROFILE AND HISTORY Demographics: Age: 70Y Gender: Female Primary Language: Rwandan Preferred Language: Rwandan Referring Service/Team: Medicine Rehabilitation Precautions/Restrictio ns: monitor BP fall risk Patient Report: Pt was pleasant and agreeable to therapy My knees are bad, i cant stand or walk very good Patient/Caregiver Goals: Go home Pain: Patient currently [...] needed Eating a Meal: No help needed [facility] PATIENT NAME: ANDRE BLANCA0 [facility] Dr. Andrea MEDICAL REC #: [id number] [place] [address] ADMIT DATE: 07/27/20 SERVICE DATE: 07/30/20 Occupational [...] I SELF CARE - Not Met: Ongoing [facility] PATIENT NAME: ANDRE BLANCA [facility] Dr. Andrea MEDICAL REC #: [id number] [place] [address] ADMIT DATE: 07/27/20 SERVICE DATE: 07/30/20 Occupational [...] contact the Acute Therapy Department at extension [phone] Communication to Nursing: No updates at this time. Location of Patient at End of Therapy Session: Left in care of transport team Services: Total Billed: 24 minutes (Timed: 24, Untimed: 0) 14.00 Timed: [08008] ADL-HOME MANAGEMENT EA 15 MIN 10.00 Timed: [71255] THERAPEUTIC EXERCISE EA 15 MIN 0.00 Untimed: [] OT Treatment General ORDER Signed by: SIMONA Olmstead 07/30/2020 13:43:37 - CoSigned By: KASEY MINAYA 07/30/2020 2:26:48 PM [facility] MEDICAL REC #: [id number] [place] [address] ADMIT DATE: 07/27/20 SERVICE DATE: 07/30/20 Occupational Therapy Progress Note ATTENDING PHY: Marta Horvath DO [facility] [place] [place] 07-30-2020 PROG [facility] Patient Name: ANDRE BLANCA [facility] ([place], [place] [place] Date of : [address] [place] [address] Unit Number: [id number] Progress Note-Hospitalist Patient Status: ADM IN Attending Doctor: Marta Horvath DO Service Date: 07/30/20 1501 Chief Complaint Chief Complaint Syncope Patient is a 70-year-old female with past medical history significant for CVA, hypothyroidism, COPD not on home oxygen, recurrent syncopal episodes presented to [facility] after a syncopal episode. 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 Acute hypoxemic respiratory failure 2. Syncope 3. Hypothyroidism Demographics: Age: 70Y Gender: Female Primary Language: Rwandan Preferred Language: Rwandan Rehabilitation Precautions/Restrictio ns: monitor BP fall risk SUBJECTIVE Patient Report: I can barely move I am so weak. Good luck getting me up to the chair. Dandy is gone so I can leave Monday. Patient/Caregiver Goals: Go home Pain: Patient currently [...] to Chair: A lot of help needed [facility] PATIENT NAME: ANDRE BLANCA [facility] Dr. Andrea MEDICAL REC #: [id number] [place] [address] ADMIT DATE: 07/27/20 SERVICE DATE: 07/30/20 Physical Therapy Progress Note ATTENDING DAMIAN: Marta [...] no change to plan of care today. [facility] PATIENT NAME: ANDRE BLANCA Traci Andrea MEDICAL REC #: [id number] [place] [address] ADMIT DATE: 07/27/20 SERVICE DATE: 07/30/20 Physical Therapy Progress Note ATTENDING GIRISHY: Marta Horvath DO If there are any questions regarding this service, please contact the Acute Therapy Department at extension [phone] Location of Patient at End of Therapy Session: In chair, call light within reach Services: Total Billed: 29 minutes (Timed: 29, Untimed: 0) 29.00 Timed: [94444] GAIT TRAIN EA 15 MIN 0.00 Untimed: [] PT Treatment- General ORDER Signed by: RENALDO BENAVIDES, 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 07/30/2020 12:21:52 - CoSigned By: Alivia Patel, PT 07/30/2020 3:10:43 PM [facility] PATIENT NAME: ANDRE BLANCA Traci Andrea MEDICAL REC #: [id number] [place] [address] ADMIT DATE: 07/27/20 SERVICE DATE: 07/30/20 Physical Therapy Progress Note ATTENDING PHY: Marta Horvath DO Normal [facility] BMPon 07-29-2020 Anion gap [Moles/Vol] 4 mmol/L Low -16 [facility] Comment on above: Order Comment: Campu s: M What is the source? URINE Performed By: #### M 150.92714, M150.43233 #### [facility] [address] [place] [address] Calcium [Mass/Vol] 8.9 mg/dL Normal 8.5-10.5 [facility] Comment on above: Order Comment: Campu s: M What is the source? URINE Result Comment: NOTE NEW NORMAL RANGE DUE TO REAGENT CHANGE Performed By: #### M 150.37969, M150.42382 #### [facility] [address] [place] [address] Chloride [Moles/Vol] 106 mmol/L Normal 98-107 [facility] Comment on above: Order Comment: Campu s: M What is the source? URINE Performed By: #### M 150.25590, M150.81118 #### [facility] [place] [address] CO2 [Moles/Vol] 30.0 mmol/L Normal 21-32 [facility] Comment on above: Order Comment: Campu s: M What is the source? URINE Performed By: #### M 150.16391, M150.86848 #### [facility] [place] [address] Creatinine [Mass/Vol] 1.07 mg/dL High 0.510-0.950 [facility] Comment on above: Order Comment: Campu s: M What is the source? URINE Result Comment: Geraldine ents receiving either N-Acetylcysteine (NAC) or Metamizole prior to venipuncture, may have falsely depressed results. Performed By: #### M 150.59274, M150.03922 #### [facility] [address] [place] [address] Glucose [Mass/Vol] 110 mg/dL High 70-100 [facility] Comment on above: Order Comment: Campu s: M What is the source? URINE Result Comment: 70-1 00- Normal Fasting; 100-125 Impaired Fasting; greater than 126 on more than one result- Diabetes. ADA guidelines. Results may be falsely elevated after the administration of Sulfapyridine. Results may be falsely depressed after the administration of Sulfasalazine. Performed By: #### M 150.39066, M150.46874 #### [facility] [address] [place] [address] Potassium [Moles/Vol] 3.5 mmol/L Normal 3.5-5.1 [facility] Comment on above: Order Comment: Campu s: M What is the source? URINE Performed By: #### M 150.55650, M150.78018 #### [facility] [address] [place] [address] Sodium [Moles/Vol] 140 mmol/L Normal 136-145 [facility] Comment on above: Order Comment: Campu s: M What is the source? URINE Performed By: #### M 150.30661, M150.51462 #### [facility] [place] [address] Urea nitrogen [Mass/Vol] 12 mg/dL Normal 7-26 [facility] Comment on above: Order Comment: Campu s: M What is the source? URINE Performed By: #### M 150.17315, M150.85905 #### [facility] [place] [address] Urea nitrogen/Creatinine [Mass ratio] 11 mg/mg Low 15-24 [facility] Comment on above: Order Comment: Campu s: M What is the source? URINE Performed By: #### M 150.72037, M150.49522 #### [facility] [address] [place] [address] CBC W/DIFFon 07-29-2020 BASO ABS 0.10 K/CU MM Normal 0-0.2 [facility] Comment on above: Order Comment: Campu s: M Minimal Draw: Y Performed By: #### L 500.86097, L500.98046 #### [facility] [address] [place] [address] Basophils/100 WBC (Bld) 1.0 % Normal 0-[address] [facility] Comment on above: Order Comment: Campu s: M Minimal Draw: Y Performed By: #### L 500.58292, L500.56887 #### [facility] [address] [place] [address] EOS ABS 0.30 K/CU MM Normal 0-0.5 [facility] Comment on above: Order Comment: Campu s: M Minimal Draw: Y Performed By: #### L 500.88758, L500.35061 #### [facility] [address] [place] [address] Eosinophils/100 WBC (Bld) 3.3 % Normal 0-5 [facility] Comment on above: Order Comment: Campu s: M Minimal Draw: Y Performed By: #### L 500.91844, L500.43565 #### [facility] [address] [place], [place] [address] Erythrocyte distribution width (RBC) [Ratio] 14.3 % Normal 11-14.5 [facility] Comment on above: Order Comment: Campu s: M Minimal Draw: Y Performed By: #### L 500.91677, L500.46677 #### [facility] [address] [place], [place] [address] Hematocrit (Bld) [Volume fraction] 33.4 % Low 35.0-47.0 [facility] Comment on above: Order Comment: Abundiou s: M Minimal Draw: Y Performed By: #### L 500.60573, L500.27095 #### [facility] [address] [place] [address] Hemoglobin (Bld) [Mass/Vol] 10.7 g/dL Low 11.5-15.5 [facility] Comment on above: Order Comment: Abundiou s: M Minimal Draw: Y Result Comment: Repe ated and verified. Performed By: #### L 500.54985, L500.93324 #### [facility] [address] [place] [address] IMMATR GRAN ABS 0.00 K/CU MM Normal Less than 2 [facility] Comment on above: Order Comment: Abundiou s: M Minimal Draw: Y Performed By: #### L 500.84117, L500.48873 #### [facility] [address] [place] [address] IMMATURE GRAN % 0.3 % Normal Less than 2 [facility] Comment on above: Order Comment: Abundiou s: M Minimal Draw: Y Performed By: #### L 500.53461, L500.24539 #### [facility] [address] [place] [address] Lymphocytes (Bld) [#/Vol] 1.70 K/CU MM Normal 0.9-4.4 [facility] Comment on above: Order Comment: Abundiou s: M Minimal Draw: Y Performed By: #### L 500.99542, L500.13649 #### [facility] [address] [place] [address] Lymphocytes/100 WBC (Bld) 21.9 % Normal 20-40 [facility] Comment on above: Order Comment: Abundiou s: M Minimal Draw: Y Performed By: #### L 500.81955, L500.70299 #### [facility] [address] [place] [address] MCHC (RBC) [Mass/Vol] 32.0 g/dL Normal 32.0-36.0 [facility] Comment on above: Order Comment: Campu s: M Minimal Draw: Y Performed By: #### L 500.93676, L500.07730 #### [facility] [address] [place] [address] MCV (RBC) [Entitic vol] 93.8 fL Normal 80.0-99.0 [facility] Comment on above: Order Comment: Campu s: M Minimal Draw: Y Performed By: #### L 500.93201, L500.15063 #### [facility] [address] [place] [address] MONO ABS 0.50 K/CU MM Normal 0.1-1.1 [facility] Comment on above: Order Comment: Campu s: M Minimal Draw: Y Performed By: #### L 500.88679, L500.14931 #### [facility] [address] [place] [address] Monocytes/100 WBC (Bld) 6.4 % Normal 2-10 [facility] Comment on above: Order Comment: Campu s: M Minimal Draw: Y Performed By: #### L 500.98580, L500.83016 #### [facility] [address] [place] [address] NEUTROPHIL ABS 5.30 K/CU MM Normal 2.0-8.3 [facility] Comment on above: Order Comment: Campu s: M Minimal Draw: Y Performed By: #### L 500.77998, L500.13631 #### [facility] [address] [place] [address] Neutrophils/100 WBC (Bld) 67.1 % Normal 45-75 [facility] Comment on above: Order Comment: Campu s: M Minimal Draw: Y Performed By: #### L 500.63818, L500.36000 #### [facility] [address] [place], [place] [address] Nucleated RBC/100 WBC (Bld) [Ratio] 0.0 % Normal Less than 1 [facility] Comment on above: Order Comment: Campu s: M Minimal Draw: Y Performed By: #### L 500.11156, L500.49758 #### [facility] [address] [place] [address] Platelet mean volume (Bld) [Entitic vol] 10.4 fL Normal 9.4-12.4 [facility] Comment on above: Order Comment: Campu s: M Minimal Draw: Y Performed By: #### L 500.01598, L500.92594 #### [facility] [address] [place] [address] Platelets (Bld) [#/Vol] 200 K/CU MM Normal 150-450 [facility] Comment on above: Order Comment: Campu s: M Minimal Draw: Y Performed By: #### L 500.40147, L500.68236 #### [facility] [address] [place] [address] RBC (Bld) [#/Vol] 3.56 M/CU MM Low 3.90-5.30 [facility] Comment on above: Order Comment: Campu s: M Minimal Draw: Y Performed By: #### L 500.08199, L500.25207 #### [facility] [address] [place], [place] [address] WBC (Bld) [#/Vol] 7.9 K/CUMM Normal 4.5-11.0 [facility] Comment on above: Order Comment: Campu s: M Minimal Draw: Y Performed By: #### L 500.44079, L500.01359 #### [facility] [address] [place], [place] [address] GFR ESTon 12-16-2020 IF AMER Greater than 60 Normal [facility] Comment on above: Order Comment: Campu s: M What is the source? URINE Performed By: #### M 150.43376, M150.94344 #### [facility] [address] [place] [address] IF non-AFR AMER 51 Normal [facility] Comment on above: Order Comment: Campu s: M What is the source? URINE Performed By: #### M 150.26753, M150.66808 #### [facility] [address] [place] [address] LEGIONELLA ANTIon 07-29-2020 LEGIONELLA ANTI LEGIONELLA ANTIGEN NEGATIVE FOR LEGIONELLA PNEUMOPHILA SEROGROUP 1 ANTIGEN Normal [facility] Comment on above: Order Comment: Campu s: M What is the source? URINE Performed By: #### M 150.62774, M150.06858 #### [facility] [place] [address] LEGIONELLA ANTI This report has been cancelled [facility] Comment on above: Order Comment: Abundiou s: M What is the source? URINE OTPNon 07-29-2020 OT Progress Note Normal [facility] OTPN Occupational Therapy Inpatient Missed Visit [...] contact the Acute Therapy Department at extension [phone] Services: Total Billed: 0 minutes (Timed: 0, Untimed: 0) 0.00 Untimed: [] OT Treatment General ORDER Signed by: KASEY MINAYA 07/29/2020 14:52:33 [facility] PATIENT NAME: ANDRE BLANCA [facility] Dr. Andrea MEDICAL REC #: [id number] [place] [address] ADMIT DATE: 07/27/20 SERVICE DATE: 07/29/20 Occupational Therapy Progress Note ATTENDING PHY: Marta Horvath DO Normal [facility] PNEUMO ANTIGENon 07-29-2020 PNEUMO ANTIGEN S PNEUMONIAE ANTIGEN PRESUMPTIVE NEGATIVE FOR STREP PNEUMONIAE ANTIGEN [facility] Comment on above: Order Comment: Maciel s: M What is the source? URINE Performed By: #### M 150.71563, M150.09871 #### [facility] [address] [place] [address]# [phone] PNEUMO ANTIGEN This report has been cancelled [facility] Comment on above: Order Comment: Maciel s: M What is the source? URINE PROG IMS 07-29-2020 PROG [facility]: [facility] Date of : [address] [place] [address] Unit Number: [id number] Progress Note-Hospitalist Patient Status: ADM IN Attending Doctor: Marta Horvath DO Service Date: 07/29/20 0959 Chief Complaint Chief Complaint Syncope Patient is a 70-year-old female with past medical history significant for CVA, hypothyroidism, COPD not on home oxygen, recurrent syncopal episodes presented to [facility] after a syncopal episode. Patient also reported [...] Result Date Time Pulse Ox 87 07/29 750 B/P 113/53 07/29 750 Temp 97.6 07/29 075 Pulse 82 07/29 0750 Resp 16 07/29 [...] rash noticed. Diagnostic Data: Lab 24hr (CBC/BMP [facility]) 07/29/20 0526: [Embedded Image Not Available] Anion [...] Time Gloria Saxena MD Verified/Reviewed by 07/29/[address] [place] [address] [facility] PT Progress Note [facility] PTPN Physical Therapy Inpatient Missed Visit Note Attempted to visit patient for therapy, but was unable for the following reasons: Patient refused treatment. Fatigued. I am worn out, I can't do anything else right now. Encouraged AP hourly for DVT prevention and up to chair later w;/ staff assistance. Return Plan: Will return as soon as possible for another attempt. If there are any questions regarding this service, please contact the Acute Therapy Department at extension [phone] Services: Total Billed: 0 minutes (Timed: 0, Untimed: 0) 0.00 Untimed: [] PT Treatment- General ORDER Signed by: RENALDO BENAVIDES, 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 07/29/2020 16:28:14 - CoSigned By: JARAD SMALLS, PT 07/29/2020 4:32:10 PM [facility] PATIENT NAME: ANDRE BLANCA [facility] Dr. Andrea MEDICAL REC #: [id number] [place] [address] ADMIT DATE: 07/27/20 SERVICE DATE: 07/29/20 Physical Therapy Progress Note ATTENDING PHY: Marta Horvath DO Normal [facility] RESP/SPUT CULTon 07-29-2020 RESP/SPUT CULT This report has been cancelled [facility] Comment on above: Order Comment: Maciel s: M What is the source? URINE D-DIMERon 07-28-2020 D-DIMER 660.0 ng/mlFEU High 0-590 [facility] Comment on above: Order Comment: Maciel [...] confirmatory diagnostic marker. Performed By: #### L 500.64157, L500.63047 #### [facility]# [phone] Jolanta 07-28-2020 EMERGENCY PHYSICIAN REPORT This is a preliminary report only, as the practitioner review and authentication has not occurred. [facility] ER PHYSICIAN ASSESSMENT RECORDS : FlexChartData Event Time: 07/27/2020 18:30 Status: Signed [facility] Andre Blanca [[id number]] Attending Physician 70 / F / 1950 Chart (V2b) Chart created at 07/27/2020 17:51 by Juan Manuel Skelton Chart closed at 07/27/2020 17:55 Entry in Emergency Department at 07/27/2020 13:46 Patient Name: Andre Blanca Record Number: [id number] Date: 07/27/2020 17:51 Entered Department at: 07/27/2020 13:46 Patient Seen at: 07/27/2020 14:32 Decision to Admit at: 07/27/2020 17:55 Historian: EMS and Patient PCP: [facility] Chief Complaint:SYCOPE. trauma stand [...] Onset; Quality: Aching and Dull; Severity: maximum [facility] PATIENT NAME: ANDRE BLANCA [address] [facility] [address] Andrea MEDICAL REC #: [id number] [place] [address] EMERGENCY DEPARTMENT REPORT EMERGENCY DEPARTMENT PHYSICIAN Moderate, [...] Non-tender and Soft Back: Non-tender Neurological: No [facility] PATIENT NAME: ANDRE BLANCA [facility] Dr. Andrea MEDICAL REC #: [id number] [place] [address] EMERGENCY DEPARTMENT REPORT EMERGENCY DEPARTMENT PHYSICIAN Gross [...] Juan Manuel Skelton MD 07/27/2020 2:10 PM [facility] PATIENT NAME: ANDRE BLANCA [facility] Dr. Andrea MEDICAL REC #: [id number] [place] [address] EMERGENCY DEPARTMENT REPORT EMERGENCY DEPARTMENT PHYSICIAN CT [...] scattered along the jugular chains. There is [facility] PATIENT NAME: ANDRE BLANCA [facility] Dr. Andrea MEDICAL REC #: [id number] [place] [address] EMERGENCY DEPARTMENT REPORT EMERGENCY DEPARTMENT PHYSICIAN no neck mass or fluid collection.. IMPRESSION: No acute osseous abnormality. Multilevel degenerative disk disease and facet arthropathy Dictated by Linux System Engineer: Jennifer Cobb DO Reviewed and Signed by: Kwesi Houston MD ---- Electronic Signature on File ---- Signed By: Kwesi Houston MD [email or web address] Dictated: 07/27/2020 3:00 PM Signed: 07/27/2020 3:22 [...] obtained the posterior fossa with 5 mm [facility] PATIENT NAME: ANDRE BLANCA Dr. Andrea MEDICAL REC #: [id number] [place] [address] EMERGENCY DEPARTMENT REPORT EMERGENCY DEPARTMENT PHYSICIAN thick [...] age-related and chronic ischemic changes. Dictated by Linux System Engineer: Jennifer Cobb DO Reviewed and Signed by: Kwesi Houston MD ---- Electronic Signature on File ---- Signed By: Kwesi Houston MD [facility] PATIENT NAME: ANDRE BLANCA Dr. Andrea MEDICAL REC #: [id number] [place] [address] EMERGENCY DEPARTMENT REPORT EMERGENCY DEPARTMENT PHYSICIAN [email or web address] Dictated: 07/27/2020 2:55 PM Signed: 07/27/2020 [...] lung base, possible atelectasis versus early pneumonia. [facility] PATIENT NAME: ANDRE BLANCA [facility] Dr. Andrea MEDICAL REC #: [id number] [place] [address] EMERGENCY DEPARTMENT REPORT EMERGENCY DEPARTMENT PHYSICIAN Dictated by Linux System Engineer: Jennifer Cobb DO Reviewed and Signed by: [...] 1. Acute exacerbation of COPD with hypoxia [facility] PATIENT NAME: ANDRE BLANCA [address] [facility] [address] Andrea MEDICAL REC #: [id number] [place] [address] EMERGENCY DEPARTMENT REPORT EMERGENCY DEPARTMENT PHYSICIAN 2. 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 Andrea MEDICAL REC #: [id number] [place] [address] EMERGENCY DEPARTMENT REPORT EMERGENCY DEPARTMENT PHYSICIAN : 1950 Age: 70 yr Account No: [id number] Registration Date: 13:46 07/27/2020 Address: [address] Address: [place] [address] REGISTRATION ED Number: [id number] Marital Status: W Financial Class: FEDP TRIAGE Priority: 2 - Emergent Complaint: Syncope Stated Complaint: SYCOPE. trauma stand by. ambulatory. Arrival Date: 07/27/2020 13:46 Triage Date: 07/27/2020 13:47 Mode of Arrival: Ambulance WC: N Language: Rwandan Transport: [facility] BED E37 In: 07/27/2020 13:49:13 07/27/2020 13:49:13 JLTA E37 (Removed From) Out: 07/27/2020 22:50:14 07/27/2020 22:50:14 K[facility] Emergency Medical Service Provider Contact: 07/27/2020 13:47:31 EMS End: [facility] PATIENT NAME: ANDRE BLANCA [facility] Dr. Andrea MEDICAL REC #: [id number] [place] [address] EMERGENCY DEPARTMENT REPORT EMERGENCY DEPARTMENT PHYSICIAN SHA CHUNG Provider Contact: 07/27/2020 14:01:38 LMSB End: MD Juan Manuel Skelton Provider Contact: 07/27/2020 14:32:08 MWH End: SHA BALLESTEROS Provider Contact: 07/27/2020 15:40:20 [...] Illness: Irritable Bowel Syndrome 07/27/2020 13:49 JLTA [facility] PATIENT NAME: ANDRE BLANCAnadia Andrea MEDICAL REC #: [id number] [place] [address] EMERGENCY DEPARTMENT REPORT EMERGENCY DEPARTMENT PHYSICIAN Illness: Migraines 07/27/2020 13:49 JLTA Illness: *Family History of CA 07/27/2020 13:49 JLTA Illness: *Family History of CAD 07/27/2020 13:49 JLTA Illness: *Family History of CVA 07/27/2020 13:49 JLTA Illness: *Family History of HTN 07/27/2020 13:49 JLTA PAST SURGERY HIST Surgery: Hysterectomy-198907/27/2020 13:49 JLTA Surgery: R ARM SURGERY 07/27/2020 [...] Pneumonia Vaccine-yes 07/27/2020 13:49 JLTA NURSING ASSESSMENT [facility] PATIENT NAME: ANDRE BLANCA Traci Andrea MEDICAL REC #: [id number] [place] [address] EMERGENCY DEPARTMENT REPORT EMERGENCY DEPARTMENT PHYSICIAN Respiratory [...] Activation - 2. Trauma Standby Called @ 0759 07/27/2020 15:24 LMSB 07/27/2020 17:47 Physician Call - Dr. IGLESIAS called at 1716 07/27/2020 17:48 VLB [facility] PATIENT NAME: ANDRE BLANCA [facility] Dr. Andrea MEDICAL REC #: [id number] [place] [address] EMERGENCY DEPARTMENT REPORT EMERGENCY DEPARTMENT PHYSICIAN 07/27/2020 [...] KTDA ORDERS Admit patient 07/27/2020 18:08 N/A [facility] PATIENT NAME: ANDRE BLANCA [facility] Dr. Andrea MEDICAL REC #: [id number] [place] [address] EMERGENCY DEPARTMENT REPORT EMERGENCY DEPARTMENT PHYSICIAN Ordered: [...] Manuel Skelton Noted Time: 07/27/2020 16:13 KTDA [employer] ARCHITECT ORDER: GFRP 07/27/2020 15:32 None Ordered: 07/27/2020 [...] Time: 07/27/2020 18:37 By Juan Manuel Skelton [facility] PATIENT NAME: ANDRE BLANCA [facility] Dr. Andrea MEDICAL REC #: [id number] [place] [address] EMERGENCY DEPARTMENT REPORT EMERGENCY DEPARTMENT PHYSICIAN Noted [...] By Juan Manuel Skelton Cancelled: 07/27/2020 15:17 MW Cancelled Reason: Wrong patient Consult Psych Triage 07/27/2020 15:17 N/A Ordered: 07/27/2020 15:15 By Juan Manuel Skelton [facility] PATIENT NAME: ANDRE BLANCA Traci Andrea MEDICAL REC #: [id number] [place] [address] EMERGENCY DEPARTMENT REPORT EMERGENCY DEPARTMENT PHYSICIAN Cancelled: 07/27/2020 15:17 MW Cancelled Reason: Wrong patient DISCHARGE Diagnosis: Acute [...] PRESCRIPTIONS CHARGES SIGNATURE Juan Manuel Skelton MD [facility] JOSELIN GILBERTStyleFeeder [facility] BHARAT CHUNG RN LMSB JAMAAL HAWKINS [facility] PATIENT NAME: ANDRE BLANCA [facility] Dr. Andrea MEDICAL REC #: [id number] [place] [address] EMERGENCY DEPARTMENT REPORT EMERGENCY DEPARTMENT PHYSICIAN Normal [facility] 07-28-2020 Albumin [Mass/Vol] 3.7 g/dL Normal 3.2-5.0 [facility] Comment on above: Order Comment: Campu s: M Performed By: #### L 500.53375 ####[facility] [id number] [place], [place] [address]Kn# [phone] Albumin/Globulin [Mass ratio] 1.2 {ratio} Normal 0.8-2.0 [facility] Comment on above: Order Comment: Campu s: M Performed By: #### L 500.81588 ####[facility] [id number] [place], [place] [address]Gq# [phone] ALK PHOS 132 U/L High 45-117 [facility] Comment on above: Order Comment: Campu s: M Performed By: #### L 500.07088 ####[facility] [id number] [place], [place] [address]Hk# [phone] ALT [Catalytic activity/Vol] 9 U/L Low 13-61 [facility] Comment on above: Order Comment: Campu s: M Result Comment: RESU LTS MAY BE FALSELY DEPRESSED AFTER THE ADMINISTRATION OF SULFASALAZINE AND/OR SULFAPYRIDINE. Performed By: #### L 500.02522 ####[facility] [id number] [place] [address]Pc# [phone] BILI DIRECT 0.2 MG/DL Normal 0.00-0.36 [facility] Comment on above: Order Comment: Campu s: M Result Comment: NOTE NEW NORMAL RANGE DUE TO REAGENT CHANGE Performed By: #### L 500.11380 ####[facility] [id number] [place], [place] [address]Sw# [phone] BILI TOTAL 0.50 MG/DL Normal 0.2-1.0 [facility] Comment on above: Order Comment: Campu s: M Performed By: #### L 500.80973 ####[facility] [id number] [place], [place] [address]Jl# [phone] Globulin (S) [Mass/Vol] 3.1 g/dL Normal 2.2-4.2 [facility] Comment on above: Order Comment: Campu s: M Performed By: #### L 500.50962 ####[facility] [id number] [place], [place] [address]Md# [phone] Protein [Mass/Vol] 6.8 g/dL Normal 6.0-8.5 [facility] Comment on above: Order Comment: Maciel s: M Performed By: #### L 500.10670 ####[facility] [id number] [place], [place] [address]Wi# [phone] SGOT (AST) 19 U/L Normal 8-34 [facility] Comment on above: Order Comment: Campu s: M Result Comment: RESU LTS MAY BE FALSELY DEPRESSED AFTER THE ADMINISTRATION OF SULFASALAZINE AND/OR SULFAPYRIDINE. Performed By: #### L 500.60064 ####[facility] [id number] [place], [place] [address]Xl# [phone] OTARon 07-28-2020 OT Assessment Report Normal [facility] OTAR Occupational Therapy Inpatient Evaluation Medical Diagnosis: 1. Acute hypoxemic respiratory failure 2. Syncope OCCUPATIONAL PROFILE AND HISTORY Therapy Diagnosis: Rank Code Description 1 Z74.1 Need for assistance with personal care 2 R06.02 Shortness of breath 3 R26.81 Unsteadiness on feet 4 R55 Syncope and collapse Demographics: Age: 70Y Gender: Female Primary Language: Rwandan Preferred Language: Rwandan Referring Service/Team: Medicine Past Medical History: PMHx: Chronic COPD, Hx CVA prior without deficits but prior had L sided weakness, Hypothyroidism, Hx Migraines, Bipolar Disorder, IBS, Obesity. Past Surgical History Hysterectomy, appendectomy, right upper extremity surgery, cholecystectomy. History of Present Illness: 07/27/20 Additional Information: Chief Complaint/Present Illness: Syncope History of Present Illness 70-year-old female, primary care through the [facility], past medical history CVA, hypothyroidism, COPD not on home oxygen, recurrent syncopal episodes in the past that she states have been worked up by her physicians at the [facility], testing done at the [facility] and here at [facility], concluding that she has low blood pressure. She does not feel like her syncopal [...] shows normal sinus rhythm with right bundle [facility] PATIENT NAME: ANDRE BLANCA [facility] Dr. Andrea MEDICAL REC #: [id number] [place] [address] ADMIT DATE: 07/27/20 SERVICE DATE: 07/28/20 Occupational Therapy Assessment ATTENDING GIRISHY: Marta Horvath DO branch block which is [...] assistance from another person to complete activities. 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 SHE WAS HAVING AIDE COME 5 DAYS A WK FOR 2 HOURS A DAY TO ASSIST W/ HOUSEWORK BUT AIDE GOT ANOTHER JOB AND THEY HAVE NOT REPLACED HER WITH ANYONE ELSE. Patient/Caregiver Goals: Patient's functional goals: BE ABLE TO MANAGE AT HOME W/O FALLING [facility] PATIENT NAME: ANDRE BLANCA [facility] Dr. Andrea MEDICAL REC #: [id number] [place] [address] ADMIT DATE: 07/27/20 SERVICE DATE: 07/28/20 Occupational Therapy Assessment ATTENDING GIRISHY: Marta Horvath DO Pain: Patient currently has [...] FLOOR. 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 Andrea MEDICAL REC #: [id number] [place] [address] ADMIT DATE: 07/27/20 SERVICE DATE: 07/28/20 Occupational [...] care. Safety. Respiratory function. Functional activities/mobility. Equipment. [facility] PATIENT NAME: ANDRE BLANCA [address] [facility] Dr. Andrea MEDICAL REC #: [id number] [place] [address] ADMIT DATE: 07/27/20 SERVICE DATE: 07/28/20 Occupational [...] should be able to return home w/ C OT if dizziness and low BP can [...] Patient participated in plan of care development [facility] PATIENT NAME: ANDRE BLANCA [facility] Dr. Andrea MEDICAL REC #: [id number] [place] [address] ADMIT DATE: 07/27/20 SERVICE DATE: 07/28/20 Occupational Therapy Assessment ATTENDING DAMIAN: Marta Horvath DO today. If there are any questions regarding this service, please contact the Acute Therapy Department at extension [phone] CARE WILL BE TRANSFERRED TO THE (CHOICE OF ACUTE OR REHAB) OCCUPATIONAL THERAPIST Communication to Nursing: No updates at this time. Location of Patient at End of Therapy Session: In bed, without bed alarm, call light within reach Services: Total Billed: 0 minutes (Timed: 0, Untimed: 0) 0.00 Untimed: [50409] OT-EVALUATION LOW COMPLEXITY 0.00 Untimed: [] OT Evaluation ORDER 0.00 Untimed: [] OT Treatment General ORDER Signed by: KASEY MINAYA 07/28/2020 15:43:51 [facility] PATIENT NAME: ANDRE BLANCA Dr. Andrea MEDICAL REC #: [id number] [place] [address] ADMIT DATE: 07/27/20 SERVICE DATE: 07/28/20 Occupational Therapy Assessment ATTENDING PHY: Marta Horvath DO [facility] OTon 07-28-2020 OT Progress Note [facility] Occupational Therapy Inpatient Missed Visit Note Location: Bedside. Attempted to visit patient for therapy, but was unable for the following reasons: Testing: off the unit at cardiac diagnostics Return Plan: Will return as soon as possible for another attempt. If there are any questions regarding this service, please contact the Acute Therapy Department at extension [phone] Signed by: KASEY MINAYA 07/28/2020 13:48:54 [facility] PATIENT NAME: ANDRE BLANCA Dr. Andrea MEDICAL REC #: [id number] [place] [address] ADMIT DATE: 07/27/20 SERVICE DATE: 07/28/20 Occupational Therapy Progress Note ATTENDING PHY: Marta Horvath DO [facility] PROG [facility] 07-28-2020 PROG [facility] Patient Name: ANDRE BLANCA [facility] [place] [address] Date of : [address] [place], [place] [address] Unit Number: [id number] Progress Note-Hospitalist Patient Status: ADM IN Attending [...] Ox 89 07/28 1058 B/P 91/38 07/28 105 O2 Delivery NASAL CANNULA 07/28 1058 O2 Flow Rate 2 07/28 105 Temp 98.1 07/28 1058 Pulse 83 07/28 1058 Resp 14 07/28 1058 General Appearance elderly, obese Physical Exam Neurological / Psychiatric Alert, Orientation X1, Orientation X2, Orientation X3, Affect Normal Respiratory Normal Breathing Effort, Clear Lungs Cardiovascular Heart RRR, No M / R / G Gastrointestinal Normal Bowel Sounds, Non Tender Skin Warm / Dry Diagnostic Data: Lab 24hr (CBC/BMP [facility]) 07/28/20 0542: TSH, Ultra Sensitive 68.605 H [...] Sindhu Briscoe DO Verified/Reviewed by 07/28/20 1441 Normal [facility] Progress Note-Hospitalist [facility] PTARon 07-28-2020 PT Assessment Report Normal [facility] PTAR Physical Therapy Inpatient Evaluation Medical Diagnosis: 1. Acute hypoxemic respiratory failure 2. Syncope 3. Hypothyroidism Therapy Diagnosis: Rank Code Description 1 R26 Abnormalities of gait and mobility 2 R53.1 Weakness Demographics: Age: 70Y Gender: Female Primary Language: Rwandan Preferred Language: Rwandan Referring Service/Team: Medicine Past Medical History: Chronic [...] Information: 70-year-old female, primary care through the [facility], past medical history CVA, hypothyroidism, COPD not on home oxygen, recurrent syncopal episodes in the past that she states have been worked up by her physicians at the [facility], testing done at the [facility] and here at [facility], concluding that she has low blood pressure. She does not feel like her syncopal episode correlate to any activity. Today she had a syncopal episode when she was standing up to go use the restroom. Over the last 5 to 6 days she has developed viral symptoms of diarrhea, shortness of breath, decreased appetite, headache, sore throat, myalgias. ED vitals temperature 98.1, heart rate 91, respiratory rate 22, blood pressure [facility] PATIENT NAME: ANDRE BLANCA [facility] Dr. Andrea MEDICAL REC #: [id number] [place] [address] ADMIT DATE: 07/27/20 SERVICE DATE: 07/28/20 Physical Therapy Assessment Report ATTENDING PHY: Marta Horvath DO 127/66, SPO2 95% room [...] canes, rollator Social History: Marital Status: W [facility] PATIENT NAME: ANDRE BLANCA [facility] Dr. Andrea MEDICAL REC #: [id number] [place] [address] ADMIT DATE: 07/27/20 SERVICE DATE: 07/28/20 Physical Therapy Assessment Report ATTENDING DAMIAN: Marta Horvath DO Children: 2 Reside: 1 [...] and G-Code Modifier = CK Vital Signs: [facility] PATIENT NAME: ANDRE BLANCA [facility] Dr. Andrea MEDICAL REC #: [id number] [place] [address] ADMIT DATE: 07/27/20 SERVICE DATE: 07/28/20 Physical Therapy Assessment Report ATTENDING DAMIAN: Marta Horvath DO Not assessed. Interventions: Evaluation [...] Rolling walker. . Recommended Consults: None currently. [facility] PATIENT NAME: ANDRE BLANCA [facility] Dr. Andrea MEDICAL REC #: [id number] [place] [address] ADMIT DATE: 07/27/20 SERVICE DATE: 07/28/20 Physical Therapy Assessment Report ATTENDING PHY: Marta Horvath DO Development of Plan of Care: Patient participated in plan of care development today. If there are any questions regarding this service, please contact the Acute Therapy Department at extension [phone] Location of Patient at End of Therapy Session: In chair, call light within reach Services: Total Billed: 0 minutes (Timed: 0, Untimed: 0) 0.00 Untimed: [29519] PT-EVALUATION MOD COMPLEX 0.00 Untimed: [] PT Evaluation ORDER 0.00 Untimed: [] PT Treatment- General ORDER Signed by: SINDHU MONTANEZ PT 07/28/2020 16:23:52 [facility] PATIENT NAME: ANDRE BLANCA [facility] Dr. Andrea MEDICAL REC #: [id number] [place] [address] ADMIT DATE: 07/27/20 SERVICE DATE: 07/28/20 Physical Therapy Assessment Report ATTENDING PHY: Marta Horvath DO Normal [facility] THY FUNC TESTSon 07-28-2020 T3 UP 33.4 % Normal 30-39 [facility] Comment on above: Order Comment: Maciel s: M Minimal Draw: Y Performed By: #### L 500.57569, L500.18706 #### [facility] [address] [place] [address] T4 [Mass/Vol] 4.8 ug/dL Normal 4.8-13.9 [facility] Comment on above: Order Comment: Maciel joe: Ramiro Minimal Draw: Y Result Comment: RESU LTS MAY BE FALSELY ELEVATED AFTER THE ADMINISTRATION OF SULFASALAZINE. Performed By: #### L 500.71705, L500.61576 #### [facility] [address] [place] [address] TROPONIN Ion 07-28-2020 Troponin I.cardiac [Mass/Vol] 2.5 ng/mL Normal 0-34 [facility] Comment on above: Order Comment: Maciel joe: Ramiro Result Comment: NOTE NEW NORMAL RANGE DUE TO REAGENT CHANGE This assay uses different antibodies than our current assay, and assays, even by the same business representative may recognize different regions of the antibody and cannot be used interchangeably. Expect results of this assay to run higher than the previous assay. Performed By: #### L 200.30897 #### [facility] [address] [place] [address] TSHon 07-28-2020 TSH Qn 68.605 UIU/ML High 0.358-3.740 [facility] Comment on above: Order Comment: Campu s: M What is the source? URINE Result Comment: 3rd generation ultra sensitive TSH Performed By: #### M 150.17600, M150.92550 #### [facility] [address] [place] [address]# [phone] ABDOMEN OR KUBon 07-27-2020 ABDOMEN OR KUB [...] File ---- Signed By: Dimitrios Cabrera MD [email or web address] Dictated: 08/05/2020 10:41 AM Signed: 08/05/2020 10:42 AM Reported By: DIMITRIOS CABRERA M.D. Signed By: DIMITRIOS CABRERA M.D. [facility] ABDOMEN OR KUB History: Enteric tub [...] the mid to distal stomach. Dictated by Linux System Engineer: Almas Jimenez DO Reviewed and Signed by: Dipesh Patiño MD FACR ---- Electronic Signature on File ---- Signed By: Dipesh Patiño MD FACR [email or web address] Dictated: 08/14/2020 5:38 PM Signed: 08/14/2020 5:41 PM Reported By: DIPESH PATIÑO M.D. Signed By: DIPESH PATIÑO M.D. [facility] [place] ABDOMEN OR KUB ABDOMEN OR KUB Ordering [...] File ---- Signed By: Dipesh Patiño MD [facility] [email or web address] Dictated: 08/06/2020 12:56 PM Signed: 08/06/2020 12:57 PM Reported By: DIPESH PATIÑO M.D. Signed By: DIPESH PATIÑO M.D. [facility] [place] ABDOMEN OR KUB ABDOMEN OR KUB Ordering [...] File ---- Signed By: Dimitrios Cabrera MD [email or web address] Dictated: 08/04/2020 5:19 PM Signed: 08/04/2020 5:22 PM Reported By: DIMITRIOS CABRERA M.D. Signed By: DIMITRIOS CABRERA M.D. Normal [facility] BMPon 07-27-2020 Anion gap [Moles/Vol] 9 mmol/L Normal 5-16 [facility] Comment on above: Order Comment: Campu s: M Performed By: #### L 200.35378 #### [facility] [address] [place] [address] Calcium [Mass/Vol] 9.7 mg/dL Normal 8.5-10.5 [facility] Comment on above: Order Comment: Campu s: M Result Comment: NOTE NEW NORMAL RANGE DUE TO REAGENT CHANGE Performed By: #### L 200.26518 #### [facility] [address] [place] [address] Chloride [Moles/Vol] 105 mmol/L Normal 98-107 [facility] Comment on above: Order Comment: Campu s: M Performed By: #### L 200.14924 #### [facility] [place] [address] CO2 [Moles/Vol] 26.0 mmol/L Normal 21-32 [facility] Comment on above: Order Comment: Campu s: M Performed By: #### L 200.86904 #### [facility] [place] [address] Creatinine [Mass/Vol] 1.06 mg/dL High 0.510-0.950 [facility] Comment on above: Order Comment: Campu s: M Result Comment: Geraldine ents receiving either N-Acetylcysteine (NAC) or Metamizole prior to venipuncture, may have falsely depressed results. Performed By: #### L 200.17583 #### [facility] [place] [address] Glucose [Mass/Vol] 136 mg/dL High 70-100 [facility] Comment on above: Order Comment: Campu s: M Result Comment: 70-1 00- Normal Fasting; 100-125 Impaired Fasting; greater than 126 on more than one result- Diabetes. ADA guidelines. Results may be falsely elevated after the administration of Sulfapyridine. Results may be falsely depressed after the administration of Sulfasalazine. Performed By: #### L 200.17292 #### [facility] [address] [place], [place] [address] Potassium [Moles/Vol] 3.9 mmol/L Normal 3.5-5.1 [facility] Comment on above: Order Comment: Campu s: M Result Comment: Slig ht Hemolysis, Result may be affected. Performed By: #### L [id number] #### [facility] [address] [place] [address] Sodium [Moles/Vol] 140 mmol/L Normal 136-145 [facility] Comment on above: Order Comment: Campu s: M Performed By: #### L 200.77246 #### [facility] [address] [place] [address] Urea nitrogen [Mass/Vol] 11 mg/dL Normal 7-26 [facility] Comment on above: Order Comment: Campu s: M Performed By: #### L 200.64628 #### [facility] [address] [place] [address] Urea nitrogen/Creatinine [Mass ratio] 10 mg/mg Low 15-24 [facility] Comment on above: Order Comment: Campu s: M Performed By: #### L 200.10246 #### [facility] [address] [place] [address] CBC W/DIFFon 07-27-2020 BASO ABS 0.10 K/CU MM Normal 0-0.2 [facility] Comment on above: Order Comment: Campu s: M Performed By: #### L 200.60029 #### [facility] [address] [place] [address] Basophils/100 WBC (Bld) 0.8 % Normal 0-[address] [facility] Comment on above: Order Comment: Campu s: M Performed By: #### L 200.17625 #### [facility] [address] [place] [address] EOS ABS 0.20 K/CU MM Normal 0-0.5 [facility] Comment on above: Order Comment: Campu s: M Performed By: #### L 200.82995 #### [facility] [address] [place] [address] Eosinophils/100 WBC (Bld) 2.3 % Normal 0-5 [facility] Comment on above: Order Comment: Campu s: M Performed By: #### L 200.61709 #### [facility] [address] [place] [address] Erythrocyte distribution width (RBC) [Ratio] 14.2 % Normal 11-14.5 [facility] Comment on above: Order Comment: Campu s: M Performed By: #### L 200.03499 #### [facility] [address] [place] [address] Hematocrit (Bld) [Volume fraction] 42.1 % Normal 35.0-47.0 [facility] Comment on above: Order Comment: Campu s: M Performed By: #### L 200.28118 #### [facility] [address] [place] [address] Hemoglobin (Bld) [Mass/Vol] 13.9 g/dL Normal 11.5-15.5 [facility] Comment on above: Order Comment: Campu s: M Performed By: #### L 200.95647 #### [facility] [address] [place] [address] IMMATR GRAN ABS 0.00 K/CU MM Normal Less than 2 [facility] Comment on above: Order Comment: Campu s: M Performed By: #### L 200.08585 #### [facility] [address] [place] [address] IMMATURE GRAN % 0.3 % Normal Less than 2 [facility] Comment on above: Order Comment: Campu s: M Performed By: #### L [id number] #### [facility] [address] [place] [address] Lymphocytes (Bld) [#/Vol] 1.40 K/CU MM Normal 0.9-4.4 [facility] Comment on above: Order Comment: Campu s: M Performed By: #### L 200.54859 #### [facility] [address] [place] [address] Lymphocytes/100 WBC (Bld) 14.1 % Low 20-40 [facility] Comment on above: Order Comment: Campu s: M Performed By: #### L 200.05997 #### [facility] [address] [place] [address] MCHC (RBC) [Mass/Vol] 33.0 g/dL Normal 32.0-36.0 [facility] Comment on above: Order Comment: Campu s: M Performed By: #### L 200.91264 #### [facility] [address] [place] [address] MCV (RBC) [Entitic vol] 89.0 fL Normal 80.0-99.0 [facility] Comment on above: Order Comment: Campu s: M Performed By: #### L 200.52261 #### [facility] [address] [place] [address] MONO ABS 0.60 K/CU MM Normal 0.1-1.1 [facility] Comment on above: Order Comment: Campu s: M Performed By: #### L 200.51335 #### [facility] [address] [place] [address] Monocytes/100 WBC (Bld) 6.2 % Normal 2-[address] [facility] Comment on above: Order Comment: Campu s: M Performed By: #### L 200.12242 #### [facility] [address] [place], [place] [id number] NEUTROPHIL ABS 7.60 K/CU MM Normal 2.0-8.3 [facility] Comment on above: Order Comment: Campu s: M Performed By: #### L 200.43022 #### [facility] [address] [place] [address] Neutrophils/100 WBC (Bld) 76.3 % High 45-75 [facility] Comment on above: Order Comment: Campu s: M Performed By: #### L 200.87180 #### [facility] [address] [place] [address] Nucleated RBC/100 WBC (Bld) [Ratio] 0.0 % Normal Less than 1 [facility] Comment on above: Order Comment: Campu s: M Performed By: #### L 200.36983 #### [facility] [address] [place] [address] Platelet mean volume (Bld) [Entitic vol] 10.2 fL Normal 9.4-12.4 [facility] Comment on above: Order Comment: Campu s: M Performed By: #### L 200.90521 #### [facility] [address] [place] [address] Platelets (Bld) [#/Vol] 265 K/CU MM Normal 150-450 [facility] Comment on above: Order Comment: Campu s: M Performed By: #### L 200.58641 #### [facility] [address] [place], [place] [address] RBC (Bld) [#/Vol] 4.73 M/CU MM Normal 3.90-5.30 [facility] Comment on above: Order Comment: Campu s: M Performed By: #### L 200.10339 #### [facility] [address] [place] [address] WBC (Bld) [#/Vol] 10.0 K/CUMM Normal 4.5-11.0 [facility] Comment on above: Order Comment: Abundiou s: M Performed By: #### L 200.59417 #### [facility] [address] [place] [address] CDLECHOon 07-27-2020 CDLECHO [id number] IN ECHOCARD ECHOCARDIOGRAM [address] [place] [address] Noninvasive Cardiac Diagnostics Adult Echocardiogram Report Name: ANDRE BLANCA Study Date: 07/28/2020 01:53 PM BP: 123/74 mmHg Patient Location: [id number]: : 1950 Gender: Female Height: 67 in Age: 70 yrs Ethnicity: [place] Weight: 235 lb Accession No. [id number] No. [id number] Reason For Study: SYNCOPE BSA: 2.2 m2 [...] left atrial size is normal. Right Atrium: [facility] PATIENT NAME: ANDRE BLANCA [address] [place] [address] Dr. Andrea MEDICAL REC #: [id number] [place] [address] ADMIT DATE: 07/27/20 DISCHARGE DATE: ATTENDING PHY: [...] LA/Ao: 1.2 EF(MOD-sp4):SI(MOD-sp4 ): LA ESV Index [facility] PATIENT NAME: BLANCA,JEANETTEBetty Andrea MEDICAL REC #: [id number] [place] [address] ADMIT DATE: 07/27/20 DISCHARGE DATE: ATTENDING PHY: [...] l/min CI(LVOT): 2.1 l/min/m2 SI(LVOT): 28.3 ml/m2 [facility] PATIENT NAME: ANDRE BLANCA [facility] Dr. Andrea MEDICAL REC #: [id number] [place] [address] ADMIT DATE: 07/27/20 DISCHARGE DATE: ATTENDING PHY: [...] WALTERS Performed By: 18 CC: Marta Horvath [facility] MEDICAL REC #: [id number] [place] [address] ADMIT DATE: 07/27/20 DISCHARGE DATE: ATTENDING PHY: Marta Horvath DO ECHOCARDIOGRAM REPORT Normal [facility] ECHOCARDIOGRAM REPORT Normal [facility] CT CERVICAL SP. W/O CONon CT CERVICAL [...] disk disease and facet arthropathy Dictated by Linux System Engineer: Jennifer Cobb DO Reviewed and Signed by: Kwesi Houston MD ---- Electronic Signature on File ---- Signed By: Kwesi Houston MD [email or web address] Dictated: 07/27/2020 3:00 PM Signed: 07/27/2020 3:22 PM Reported By: KWESI HOUSTON M.D. Signed By: KWESI HOUSTON M.D. [facility] CT HEAD/BRAIN W/O CONon 07-14 CT [...] File ---- Signed By: Dipesh Patiño MD [facility] [email or web address] Dictated: 08/10/2020 7:43 AM Signed: 08/10/2020 7:46 AM Reported By: DIPESH PATIÑO M.D. Signed By: DIPESH PATIÑO M.D. [facility] CT HEAD/BRAIN W/O CON CT HEAD/BRAIN [...] age-related and chronic ischemic changes. Dictated by Linux System Engineer: Jennifer Cobb DO Reviewed and Signed by: Kwesi Houston MD ---- Electronic Signature on File ---- Signed By: Kwesi Houston MD [email or web address] Dictated: 07/27/2020 2:55 PM Signed: 07/27/2020 3:18 PM Reported By: KWESI HOUSTON M.D. Signed By: KWESI HOUSTON M.D. [facility] GFR ESTon 07-27-2020 IF AMER Greater than 60 [facility] Comment on above: Order Comment: Maciel s: M Performed By: #### L [id number] #### [facility] [address] [place] [address] IF non-AFR AMER 51 Normal [facility] Comment on above: Order Comment: Maciel joe: Ramiro Performed By: #### L [id number] #### [facility] [place] [address] HP.IMS.ADMon 07-27-2020 Admission-H&P Normal [facility] HP.IMS.ADM [facility] Patient Name: ANDRE BLANCA [address] [facility] [address] Date of : 48 [place], [place] [address] Unit Number: [id number] Admission-HandP Patient Status: ADM IN Attending Doctor: Marta Horvath DO Service Date: 07/27/201820 History of Present Illness Chief Complaint/Present Illness: Syncope History of Present Illness 70-year-old female, primary care through the [facility], past medical history CVA, hypothyroidism, COPD not on home oxygen, recurrent syncopal episodes in the past that she states have been worked up by her physicians at the [facility], testing done at the [facility] and here at [facility], concluding that she has low blood pressure. She does not feel like her syncopal [...] as Reported by GASTON URIBE on 04/16/17 1950 Last Action: Continued on 07/28/2011 by MARTA HORVATH Ondansetron HCl* (Zofran 4MG Tab*) 4 MG TABLET 4 MG PO BIDPRN PRN NAUSEA, Ref 0 ( Reported) Entered as Reported by GASTON URIBE on 10/24/18 131 Last Action: Continued on 07/28/2011 by MARTA [...] Physician Last Action: Discontinued on 07/27/202305 by CHRISITANO FRAUSTO Ergocalciferol (Vitamin D2) (Vitamin D 50,000 [...] Report Impression - Status: SIGNED Entered: 07/27/2020 1314 IMPRESSION: No acute intracranial abnormality. Stable age-related [...] that she has syncopal episodes to a low blood pressure. Her last echocardiogram in [facility] for review is from February 2019 demonstrating [...] exist. eSign Date and Time Marta Horvath DO Verified/Reviewed by 07/28/20 0044 [facility] PORTABLE CHESTon 07-27-2020 PORTABLE CHEST EXAMINATION: [...] GARCIA MD Signed By: KWESI GARCIA MD [facility] PORTABLE CHEST PORTABLE CHEST Ordering Physician: [...] File ---- Signed By: Aaron Burkett MD [email or web address] Dictated: 08/11/2020 7:29 AM Signed: 08/11/2020 7:30 AM Reported By: AARON BURKETT M.D. Signed By: AAORN BURKETT M.D. [facility] PORTABLE CHEST PORTABLE CHEST Ordering Physician: [...] File ---- Signed By: Dimitrios Cabrera MD [email or web address] Dictated: 08/08/2020 7:44 AM Signed: 08/08/2020 7:46 AM Reported By: DIMITRIOS CABRERA M.D. Signed By: DIMITRIOS CABRERA M.D. [facility] PORTABLE CHEST PORTABLE CHEST Ordering Physician: [...] File ---- Signed By: Kwesi Houston MD [email or web address] Dictated: 08/09/2020 7:14 AM Signed: 08/09/2020 7:14 AM Reported By: KWESI HOUSTON M.D. Signed By: KWESI HOUSTON M.D. [facility] PORTABLE CHEST PORTABLE CHEST Ordering Physician: [...] ---- Signed By: Dipesh Patiño MD FACR [email or web address] Dictated: 08/14/2020 7:35 AM Signed: 08/14/2020 7:36 AM Reported By: DIPESH PATIÑO M.D. Signed By: DIPESH PATIÑO M.D. [facility] PORTABLE CHEST PORTABLE CHEST Ordering Physician: [...] File ---- Signed By: Aaron Burkett MD [email or web address] Dictated: 08/10/2020 7:07 AM Signed: 08/10/2020 7:08 AM Reported By: AARON BURKETT M.D. Signed By: AARON BURKETT M.D. [facility] PORTABLE CHEST PORTABLE CHEST Ordering Physician: [...] possible atelectasis versus early pneumonia. Dictated by Linux System Engineer: Jennifer Cobb DO Reviewed and Signed by: Laz Funk MD ---- Electronic Signature on File ---- Signed By: Laz Funk MD [email or web address] Dictated: 07/27/2020 4:58 PM Signed: 07/27/2020 5:07 PM Reported By: LAZ FUNK M.D. Signed By: LAZ FUKN M.D. Normal [facility] SARS-COV-2 PCRon 07-27-2020 SARS-COV-2 PCR NOT DETECTED Normal NOT DETECTD [facility] Comment on above: Order Comment: Maciel jeo: Ramiro Result Comment: RESU LTS CALLED TO [facility] AT 201507/27/20 BY LAKESHA RENEE Negative [...] performed by PCR. Performed By: #### L [id number] ####[facility] [address] [place], [place] [address]Fs# [phone] SHOULDER MIN 2 VWS RTon 07-14 SHOULDER [...] HOUSTON M.D. Signed By: KWESI HOUSTON M.D. [facility] Vital Signs Date Time Vital Sign Value Performing Clinician Faci lity 02-25-2025 15:07-0400 Body height 168.9 cm Opal Espinoza MD Work Phone: [facility] [employer] 02-25-2025 15:07-0400 Body mass index (BMI) [Ratio] 28.94 kg/m2 Opal Espinoza MD Work Phone: [facility] [employer] 02-25-2025 15:07-0400 Body weight 82.56 kg Opal Espinoza MD Work Phone: [facility] 02-25-2025 15:07-0400 Diastolic blood pressure 79 mm[Hg] Opal Espinoza MD Work Phone: [facility] [employer] 02-25-2025 15:07-0400 Heart rate 70 /min Opal Espinoza MD Work Phone: [facility] [employer] 02-25-2025 15:07-0400 Systolic blood pressure 118 mm[Hg] Opal Espinoza MD Work Phone: [facility] [employer] 09-27-2024 13:15-0500 Heart rate 84 /min Muna Edmonds MD Work Phone: [facility] [employer] 09-27-2024 13:15-0500 Respiratory rate 18 /min Muna Edmonds MD Work Phone: [facility] [employer] 09-27-2024 13:15-0500 SaO2% (BldA) [Mass fraction] 95 % Muna Edmonds MD Work Phone: [employer] 09-27-2024 09:22-0500 Diastolic blood pressure 83 mm[Hg] Muna Edmonds MD Work Phone: [employer] [facility] [employer] 09-27-2024 09:22-0500 Systolic blood pressure 126 mm[Hg] Muna Edmonds MD Work Phone: [facility] [employer] 09-27-2024 08:36-0500 Body temperature 97.39 [degF] Muna Edmonds MD Work Phone: [facility] [employer] 09-26-2024 10:48-0500 Body height 168.9 cm Muna Edmonds MD Work Phone: [facility] [employer] 09-25-2024 21:30-0500 Body mass index (BMI) [Ratio] 28.95 kg/m2 Muna Edmonds MD Work Phone: [employer] [facility] [employer] 09-25-2024 21:30-0500 Body weight 82.6 kg Muna Edmonds MD Work Phone: [facility] [employer] 09-13-2023 08:32-0500 Body height 170.2 cm Almas Laureano MD Work Phone: [facility] [employer] 09-13-2023 08:32-0500 Body mass index (BMI) [Ratio] 28.19 kg/m2 Almas Laureano MD Work Phone: [facility] [employer] 09-13-2023 08:32-0500 Body weight 81.65 kg Almas Laureano MD Work Phone: [facility] [employer] 05-31-2023 13:21-0400 Body height 170.2 cm Almas Laureano MD Work Phone: [facility] [employer] 05-31-2023 13:21-0400 Body mass index (BMI) [Ratio] 28.19 kg/m2 Almas Laureano MD Work Phone: [facility] [employer] 05-31-2023 13:21-0400 Body weight 81.65 kg Almas Laureano MD Work Phone: [facility] [employer] 02-08-2023 13:12-0400 Body height 170.2 cm Abiola Danielleo PA-C Work Phone: [facility] [employer] 02-08-2023 13:12-0400 Body mass index (BMI) [Ratio] 28.19 kg/m2 Abiola Danielleo PA-C Work Phone: [facility] [employer] 02-08-2023 13:120400 Body weight 81.65 kg Abiola Danielleo PA-C Work Phone: [facility] [employer] 01-13-2023 11:34-0400 Body temperature 98.4 [degF] Almas Laureano MD Work Phone: [facility] [employer] 01-13-2023 11:34-0400 Diastolic blood pressure 47 mm[Hg] Almas Laureano MD Work Phone: [facility] [employer] 01-13-2023 11:34-0400 Heart rate 97 /min Almas Laureano MD Work Phone: [facility] [employer] 01-13-2023 11:34-0400 Respiratory rate 18 /min Almsa Laureano MD Work Phone: [facility] [employer] 01-13-2023 11:34-0400 SaO2% (BldA) [Mass fraction] 92 % Almas Laureano MD Work Phone: [facility] [employer] 01-13-2023 11:34-0400 Systolic blood pressure 96 mm[Hg] Almas Laureano MD Work Phone: [facility] [employer] 06-05-2022 04:29-0400 Body temperature 98.01 [degF] Kwesi Decker DO Work Phone: [facility] 06-05-2022 04:29-0400 Diastolic blood pressure 82 mm[Hg] Kwesi Decker DO Work Phone: [facility] 06-05-2022 04:29-0400 Heart rate 84 /min Kwesi Decker DO Work Phone: [employer] 06-05-2022 04:29-0400 Respiratory rate 16 /min Kwesi [employer] Work Phone: [employer] 06-05-2022 04:29-0400 SaO2% (BldA) [Mass fraction] 92 % Kwesi [employer] Work Phone: [employer] 06-05-2022 04:29-0400 Systolic blood pressure 114 mm[Hg] Kwesi [employer] Work Phone: [employer] 05-30-2022 10:22-0400 Body height 170.2 cm Kwesi [employer] Work Phone: [employer] 05-30-2022 10:22-0400 Body mass index (BMI) [Ratio] 30.54 kg/m2 Kwesi [employer] Work Phone: [employer] 05-30-2022 10:22-0400 Body weight 88.45 kg Kwesi [employer] Work Phone: [employer] 01-19-2022 15:10-0400 Diastolic blood pressure 69 mm[Hg] Kim Muhammad MD Work Phone: [employer] 01-19-2022 15:10-0400 Heart rate 110 /min Kim Muhammad MD Work Phone: [employer] 01-19-2022 15:10-0400 SaO2% (BldA) [Mass fraction] 95 % Kim Muhammad MD Work Phone: [employer] 01-19-2022 15:10-0400 Systolic blood pressure 129 mm[Hg] Kim Muhammad MD Work Phone: [employer] 01-19-2022 15:06-0400 Body temperature 98.4 [degF] Kim Muhammad MD Work Phone: [employer] 01-19-2022 15:06-0400 Respiratory rate 16 /min Kim Muhammad MD Work Phone: [employer] 01-18-2022 06:53-0400 Body height 170.2 cm Kim Muhammad MD Work Phone: [facility] 01-18-2022 06:53-0400 Body mass index (BMI) [Ratio] 33.67 kg/m2 Kim Muhammad MD Work Phone: [facility] 01-18-2022 06:53-0400 Body weight 97.52 kg Kim Muhammad MD Work Phone: [facility] 11-17-2020 11:01-0400 Pulse (Heart Rate) 54 /min Jayesh BARAJAS Work Phone: 11-17-2020 11:01-0400 Pulse Oximetry 96 % Jayesh BARAJAS Work Phone: 11-17-2020 11:01-0400 Respiratory Rate 18 /min Jayesh BARAJAS Work Phone: Encounters Encounter Date Encounter Type Care Provider Facility Start: 06-25-2025 ambulatory Kianna SALVADOR Faci lity:[facility] Start: 05-19-2025 ambulatory Kianna SALVADOR Faci lity:[facility] Start: 05-14-2025 ambulatory Kianna SALVADOR Faci lity:[facility] Start: 05-09-2025 End: 05-09-2025 ambulatory Kianna SALVADOR Facility:[facility] Start: 04-24-2025 ambulatory Amaury pedroza MADELEINE Facility:[facility] Start: 02-25-2025 End: 02-25-2025 ambulatory OPAL ESPINOZA [facility] Start: 02-25-2025 End: 02-25-2025 Office outpatient new 30 minutes Opal Espinoza MD Work Phone: [facility] Comment on above: Spondylolysis, lumbo sacral (Primary Dx); Sacroiliac dysfunction; Lumbar pain Start: 02-25-2025 End: 02-25-2025 Subsequent hospital visit by physician Opal Espinoza MD Work Phone: [facility] Comment on above: Lumbar pain Start: 09-30-2024 End: 09-30-2024 ambulatory Kianna SALVADOR [facility] Work Phone: Start: 09-30-2024 End: 09-30-2024 Departed Referred Kianna [facility] Start: 09-30-2024 End: 09-30-2024 ambulatory Kianna Ramon SALVADOR Facility:[facility] Start: 09-23-2024 End: 09-27-2024 ambulatory [facility] Start: 09-23-2024 End: 09-27-2024 Emergency department patient visit Muna Edmonds MD Work Phone: [facility] Observ[facility] Unit [facility] Comment on above: Pneumonia due to org anism (Primary Dx); Fall, initial encounter; Neuropathy Start: 07-29-2024 ambulatory Kianna Ramon SALVADOR Faci lity:[facility] Start: 07-29-2024 Registered Referred Kianna [facility] Start: 07-08-2024 End: 07-08-2024 Departed Referred Kianna Izquierdo Jamel [facility] Start: 07-08-2024 End: 07-08-2024 ambulatory Kianna Srivictor m SALVADOR Facility:[facility] Start: 06-18-2024 End: 06-18-2024 Subsequent hospital visit by physician Almas Laureano MD Work Phone: [facility] Comment on above: Right hip pain; Avascular necrosis of bone of hip, right (HCC) Start: 06-18-2024 End: 06-18-2024 ambulatory [facility] Start: 11-24-2023 End: 11-24-2023 Subsequent hospital visit by physician Almas Laureano MD Work Phone: [facility] Comment on above: Canceled (Patient: S chedule Conflict) Start: 10-24-2023 End: 10-24-2023 ambulatory [facility] Work Phone: Start: 10-24-2023 End: 10-24-2023 [facility] Start: 09-13-2023 End: 09-13-2023 Office outpatient visit 15 minutes Almas Laureano MD Work Phone: [facility] Comment on above: Right hip pain Start: 09-13-2023 End: 09-13-2023 Subsequent hospital visit by physician Jaimee Ramírez PA-C [facility] Phone: [facility] Comment on above: Right hip pain Start: 09-11-2023 Orders Only Jaimee Louis Work Phone: [facility] Comment on above: Right hip pain (Prim adi Dx) Start: 08-10-2023 End: 08-10-2023 ambulatory [facility] Work Phone: Start: 08-10-2023 End: 08-10-2023 Departed Referred [facility] Start: 08-10-2023 Registered Referred [facility] Start: 07-31-2023 End: 07-31-2023 ambulatory [facility] Work Phone: Start: 07-31-2023 End: 07-31-2023 Departed Referred [facility] Start: 06-26-2023 End: 06-26-2023 ambulatory [facility] Work Phone: Start: 06-26-2023 End: 06-26-2023 Departed Referred [facility] Start: 06-26-2023 Registered Referred [facility] Start: 06-20-2023 End: 06-20-2023 ambulatory [facility] Work Phone: Start: 06-20-2023 End: 06-20-2023 Departed Referred [facility] Start: 06-02-2023 Orders Only Abiola Connolly PA-C Work Phone: [facility] Comment on above: Status post total ri ght knee replacement (Primary Dx); Primary osteoarthritis of right knee Start: 06-01-2023 End: 06-01-2023 ambulatory [facility] Work Phone: Start: 06-01-2023 End: 06-01-2023 Departed Referred [facility] [employer] Start: 05-31-2023 End: 05-31-2023 Office outpatient visit 15 minutes Almas Laureano MD Work Phone: [facility] Comment on above: Status post total ri ght knee replacement; Primary osteoarthritis of right knee Start: 05-31-2023 End: 05-31-2023 Subsequent hospital visit by physician Abiola Connolly PA-C Work Phone: [facility] Comment on above: S/P total knee arthr oplasty, right Start: 04-25-2023 End: 04-25-2023 [facility] Work Phone: Start: 04-25-2023 End: 04-25-2023 Departed Referred [facility] Start: 02-08-2023 End: 02-08-2023 Postop follow up visit related to original px Abiola Connolly PA-C Work Phone: [facility] Comment on above: Primary osteoarthrit is of right knee; S/P total knee arthroplasty, right Start: 02-08-2023 End: 02-08-2023 Subsequent hospital visit by physician Abiola Connolly PA-C Work Phone: [facility] Comment on above: S/P total knee arthr oplasty, right Start: 02-06-2023 End: 02-06-2023 ambulatory [facility] Work Phone: Start: 02-06-2023 End: 02-06-2023 Departed Referred [facility] Start: 02-01-2023 Orders Only Abiola MONIQUEC Work Phone: [facility] Comment on above: S/P total knee arthr oplasty, right (Primary Dx) Start: 01-31-2023 Registered Referred [facility] Work Phone: Start: 01-16-2023 Telephone encounter Almas Laureano MD Work Phone: [facility] Comment on above: Advice Only Start: 01-12-2023 End: 01-12-2023 Anesthesia consultation Michel Zambrano MD Work Phone: [facility] Start: 01-12-2023 End: 01-13-2023 Subsequent hospital visit by physician Almas Laureano MD Work Phone: [address] Comment on above: Primary osteoarthrit is of right knee (Primary Dx) Start: 01-04-2023 End: 01-04-2023 ambulatory [facility] Work Phone: Start: 01-04-2023 End: 01-04-2023 Departed Referred [facility] Start: 01-04-2023 Registered Referred [facility] Start: 12-26-2022 End: 12-26-2022 ambulatory [facility] Work Phone: Start: 12-26-2022 End: 12-26-2022 Departed Referred [facility] Start: 12-22-2022 ambulatory Abiola Loliso PA-C Work Phone: [facility] Start: 12-19-2022 End: 12-19-2022 Departed Referred [facility] Start: 12-19-2022 Registered Referred [facility] [employer] Start: 12-14-2022 End: 12-14-2022 Subsequent hospital visit by physician Enriqueta Spence Exam Room 1 [facility] Gerardo Comment on above: Right knee pain, uns pecified chronicity Start: 12-12-2022 Orders Only Abiola Connolly PA-C Work Phone: [facility] Comment on above: Right knee pain, uns pecified chronicity (Primary Dx) Start: 12-01-2022 End: 12-01-2022 ambulatory [facility] Work Phone: Start: 12-01-2022 End: 12-01-[address] [facility] [place] [facility] Start: 12-01-2022 [facility] [place] [facility] Start: 11-24-2022 End: 11-24-[address] [facility] [place] [facility] Start: 11-24-2022 [facility]istered [facility] Start: 11-17-2022 End: 11-17-2022 ambulatory [facility] Work Phone: Start: 11-17-2022 End: 11-17-[address] [facility] [place] [facility] Start: 11-17-2022 Registered [facility] [place] [facility] Start: 10-19-2022 End: 10-19-2022 ambulatory [facility] Work Phone: Start: 10-19-2022 End: 10-19-[address] [facility] Start: 10-19-2022 Registered [facility] [place] [facility] Start: 10-17-2022 End: 10-17-2022 ambulatory [facility] Work Phone: Start: 10-17-2022 End: 10-17-[address] [facility] Start: 10-17-2022 Registered [facility] [place] [facility] Start: 09-26-2022 End: 09-26-2022 ambulatory [facility] Work Phone: Start: 09-26-2022 End: 09-26-[address] [facility] [place] [facility] Start: 09-19-2022 End: 09-19-[address] [facility] [place] [facility] Start: 08-18-2022 End: 08-18-2022 ambulatory [facility] Work Phone: Start: 08-18-2022 End: 08-18-2022 [facility]ed [facility] Start: 08-18-2022 [facility] Start: 08-16-2022 End: 08-16-2022 ambulatory [facility] Work Phone: Start: 08-16-2022 End: 08-16-2022 Departed Referred [facility] Start: 08-16-2022 Registered Referred [facility] [place] [facility] Start: 08-03-2022 End: 08-03-2022 ambulatory [facility] Work Phone: Start: 08-03-2022 End: 08-03-2022 Departed Referred [facility] [place] [facility] Start: 07-12-2022 Telephone encounter Neto duque MD Work Phone: [facility] [place] Comment on above: OTHER Start: 07-04-2022 Registered Referred [facility] Start: 06-27-2022 Registered Referred [facility] [facility] Start: 06-13-2022 End: 06-13-2022 ambulatory [facility] Work Phone: Start: 06-13-2022 End: 06-13-2022 Departed Referred [facility] [place] [facility] Start: 06-13-2022 Registered Referred [facility] [place] [facility] Start: 06-09-2022 End: 06-09-2022 ambulatory [facility] Work Phone: Start: 06-09-2022 End: 06-09-2022 Departed Referred [facility] [place] [facility] Start: 05-30-2022 End: 06-05-2022 Evaluation and management of inpatient Kwesi A Jabour DO Work Phone: [facility] [employer] Comment on above: Closed displaced fra cture of left femoral neck (HCC) (Primary Dx); Syncope and collapse; Acute pain of left shoulder; Left hip pain; Acute traumatic pain; Fall at home, initial encounter Start: 05-18-2022 [facility] Start: 05-18-2022 End: 05-18-2022 Subsequent hospital visit by physician Abiola Connolly PA-C Work Phone: [facility] Comment on above: Arthritis of knee, r ight Start: 05-05-2022 ambulatory Kianna Frankvictor [facility] Start: 05-05-2022 End: 05-05-2022 Subsequent hospital visit by physician Osmin Segovia PA-C Work Phone: [employer] [facility] Comment on above: Left shoulder pain, unspecified chronicity Start: 04-28-2022 ambulatory [facility] Start: 04-28-2022 End: 04-28-2022 Subsequent hospital visit by physician Osmin Segovia PA-C Work Phone: [facility] [place] Start: 04-25-2022 End: 04-25-2022 ambulatory [facility] Work Phone: Start: 04-25-2022 End: 04-25-2022 Departed Referred [facility] Start: 03-25-2022 End: 03-25-2022 ambulatory [facility] Work Phone: Start: 03-25-2022 End: 03-25-2022 Departed Referred [facility] Start: 03-25-2022 Registered Referred [facility] [employer] Start: 03-14-2022 End: 03-14-2022 ambulatory [facility] Work Phone: Start: 03-14-2022 End: 03-14-2022 Departed Referred [facility] Start: 03-03-2022 ambulatory [facility] Start: 03-03-2022 End: 03-03-2022 Subsequent hospital visit by physician Nurys GONZALEZ Work Phone: [facility] [place] [facility] Comment on above: Glenohumeral arthrit is, left; S/P reverse total shoulder arthroplasty, left Start: 01-18-2022 End: 01-19-2022 ambulatory [facility] Start: 01-18-2022 End: 01-19-2022 Subsequent hospital visit by physician Kim Muhammad MD Work Phone: [facility] [address] [place] Comment on above: 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 [employer] Start: 01-13-2022 ambulatory [facility] Start: 01-11-2022 [facility] Start: 01-06-2022 End: 01-07-2022 Evaluation and management of inpatient [facility] Start: 12-27-2021 ambulatory [facility] [facility] Start: 12-20-2021 End: 12-20-2021 Departed Referred [facility] Start: 12-20-2021 Registered Referred [facility] [employer] Start: 12-13-2021 End: 12-13-2021 Departed Referred [facility] Start: 12-13-2021 Registered Referred [facility] [employer] Start: 11-29-2021 End: 11-29-2021 Departed Referred [facility] Start: 11-05-2021 End: 11-05-2021 Departed Referred [facility] Start: 11-05-2021 Registered Referred [facility] [employer] Start: 09-24-2021 Registered Referred [facility] [employer] Start: 12-25-2020 End: 12-25-2020 Subsequent hospital visit by physician Jayesh Loera MD Work Phone: [facility] Comment on above: Arrived [...] total Dennis Davies DO Work Phone: Start: 09-25-2024 Iadna-dna/rna gi pth gn multiplex probe tq 08-07 Dennis Davies DO Work Phone: Start: 09-25-2024 Inf agent det nuclei c acid clostridium amp probe Dennis Hartleyodi DO Work Phone: Start: 09-25-2024 Thyrotropin [Units/v olume] in Serum or Plasma Muna Edmonds MD Work Phone: Start: 09-25-2024 Basic metabolic pane l calcium total Dennis Davies DO Work Phone: Start: 09-24-2024 Smr prim src gram/gi emsa stain bct fungi/cell Dennis Davies DO Work Phone: Start: 09-24-2024 Antibody screen RONIT LONGORIA Comment on above: Order Comment: Don't collect this lab until patient identity is updated. Performed By: #### L [id number] ####[employer]: STAR DE LA ROSA ([id number])[facility] ([facility])[address] [place] [address] Start: 09-24-2024 Comprehensive metabo lic panel Lashon Sullivan MD Work Phone: Start: 09-24-2024 End: 09-24-2024 Drug assay carbamazepine total Shweta Carson DOPE MAINTENANCE WORKER - ASW/ASUW TACTICAL AIR CONTROLLER Work Phone: Start: 09-23-2024 Iaadiadoo not otherw [...] on above: Performed By: #### L [id number] ####[employer]: STAR DE LA ROSA ([id number])[facility] ([facility])[address] [place] [address] Start: 09-23-2024 ABO and Rh group [Ty [...] Start: 01-12-2023 Peripheral block anesthesia Delia Uribe DOPE MAINTENANCE WORKER - BISTRO SERVER Work Phone: Start: 01-12-2023 Spinal anesthesia Binh Howe DOPE MAINTENANCE WORKER - BISTRO SERVER Start: 01-12-2023 End: 01-12-2023 Arthrp kne condyle&platu medial&lat compartments Almas Laureano MD Work Phone: Start: 01-12-2023 Ecg routine ecg w/le ast 12 lds trcg only w/o i&r Abiola Connolly PA-C Work Phone: Start: 06-05-2022 COVID-19 Radha batista DOPE MAINTENANCE WORKER - CLOSING MANAGER Work Phone: Start: 06-03-2022 Basic metabolic pane [...] REFLEX TO MG FOR LOW K Radha Red DOPE MAINTENANCE WORKER - CLOSING MANAGER Work Phone: Start: 05-31-2022 Blood count complete auto&auto difrntl wbc Radha Red DOPE MAINTENANCE WORKER - CLOSING MANAGER Work Phone: Start: 05-30-2022 Radiologic examinati on tibia & fibula 2 views Erlinda Ruth MD Work Phone: Start: 05-30-2022 Ct head/brain w/o co ntrast material Radha Red DOPE MAINTENANCE WORKER - CLOSING MANAGER Work Phone: Start: 05-30-2022 Radiologic exam ches t single view Lalit Pichardo DO Work Phone: Start: 05-30-2022 Antibody screen Kwesi Decker DO Work Phone: Start: 05-30-2022 End: 05-30-2022 Radex elbow complete minimum 3 views Margaret Cuevas DOPE MAINTENANCE WORKER - ASW/ASUW TACTICAL AIR CONTROLLER Work Phone: Start: 05-30-2022 Ecg routine ecg [...] et rgnt auto w/o microscopy Nola Morrison DOPE MAINTENANCE WORKER - ASW/ASUW TACTICAL AIR CONTROLLER Work Phone: Start: 01-19-2022 Comprehensive metabo lic panel Amaury Moreira MD Work Phone: Start: 01-18-2022 OPERATIVE REPORT Physic portia Generic Start: 01-18-2022 Radex shoulder compl ete minimum 2 views Familia Esparza MD Work Phone: Start: 12-07-2020 Radex shoulder compl ete minimum 2 views Opal Esipnoza MD Work Phone: Start: 11-17-2020 Brncdilat rspse spmt ry pre&post-brncdilat admn Jayesh Loera Work Phone: Start: 07-27-2020 Ecg routine ecg w/le ast 12 lds i&r only Clostridium difficil e detection Plan of Treatment Date Care Activity Detail Author Start: 07-23-2033 DTaP/Tdap/Td Vaccine s (2 - Td or Tdap) DTaP/Tdap/Td Vaccines (2 - Td or Tdap) [facility] Start: 07-25-2028 Lipid panel Lipid Panel [facility] Start: 09-25-2025 Thyroid stimulating hormone measurement TSH Level [facility] Start: 04-14-2025 Influenza vaccination Influenza Vacc ine (#1) [facility] Start: 03-12-2025 End: 03-12-2025 Patient encounter procedure 03/12/2025 3:15 PM EDT [facility] [address] [place] [address] [place] [address] Almas Laureano MD [address] [facility] [address] [place] [address] [facility] Start: 02-24-2025 End: 02-24-2026 XR Lumbar spine Views W flexion and W extension XR lumbar spine 4-5 view Imaging Routine Lumbar pain Expected: 02/24/2025, Expires: 02/24/2026 [facility] Work Phone: Comment on above: Expected: 02/24/2025 , Expires: 02/24/2026 Start: 08-14-2024 Medicare Advantage Annual Wellness Visit Medicare Advantage Annual Wellness Visit [facility] Start: 07-25-2024 Diabetes mellitus screening Diabetes Screening [facility] Start: 07-23-2024 Thyroid stimulating hormone measurement TSH Level [facility] Start: 2024 RSV Immunization for Adults (1 - 1-dose 75+ series) RSV Immunization for Adults (1 - 1-dose 75+ series) [facility] Start: 04-14-2024 COVID-19 Vaccine ( season) COVID-19 Vaccine ( season) [facility] Start: 04-14-2024 COVID-19 Vaccine ( season) COVID-19 Vaccine ( season) [facility] Start: 04-14-2024 Influenza vaccination [facility] Start: 12-22-2023 End: 12-22-2023 Patient encounter procedure 12/22/2023 11:00 AM EDT Appointment [facility] [address] [place] [address] Almas Laureano MD [address] [facility] [address] [place] [address] [facility] [address] Start: 09-13-2023 End: 09-13-2024 MR Chest WO contrast MR hip right wo Imaging Routine Right hip pain Expected: 09/13/2023, Expires: 09/13/2024 [employer] Work Phone: Comment on above: Expected: 09/13/2023 , Expires: 09/13/2024 Start: 09-13-2023 End: 09-13-2023 Patient encounter procedure 09/13/2023 9:00 AM EST Office Visit [facility] [place] [address] Almas Laureano MD [address] [place], [place] [phone] [facility] Start: 09-11-2023 End: 09-11-2024 XR Hip - right 3 Views XR hip right 2 or 3 views Imaging Routine Right hip pain Expected: 09/11/2023, Expires: 09/11/2024 [employer] Work Phone: Comment on above: Expected: 09/11/2023 , Expires: 09/11/2024 Start: 08-30-2023 End: 08-30-2023 Patient encounter procedure 08/30/2023 1:45 PM EST Office Visit [facility] [address] [place] [address] [place] [address] Almas Laureano MD [address] [place] [address] [facility] Start: 08-14-2023 Medicare Advantage Annual Wellness Visit Medicare Advantage Annual Wellness Visit [facility] Start: 05-31-2023 End: 05-31-2024 C reactive protein [Mass/volume] in Serum or Plasma C-reactive protein Lab Routine Status post total right knee replacement Primary osteoarthritis of right knee Expected: 05/31/2023 (Approximate), Expires: 05/31/2024 [facility] Comment on above: Expected: 05/31/2023 (Approximate), Expires: 05/31/2024 Start: 05-31-2023 End: 05-31-2024 Erythrocyte sedimentation rate Sedimentation rate, automated Lab Routine Status post total right knee replacement Primary osteoarthritis of right knee Expected: 05/31/2023 (Approximate), Expires: 05/31/2024 [facility] Work Phone: Comment on above: Expected: 05/31/2023 (Approximate), Expires: 05/31/2024 Start: 05-17-2023 End: 05-17-2023 Patient encounter procedure 05/17/2023 9:00 AM EDT Office Visit [facility] [address] [place] [address] [place] [phone] Almas Laureano MD [address] [facility] [address] [place], [place] [id number] [facility] Start: 04-14-2023 COVID-19 Vaccine ( season) COVID-19 Vaccine ( season) [facility] Start: 04-14-2023 Influenza vaccination [facility] Start: 02-08-2023 End: 02-08-2023 Patient encounter procedure 02/08/2023 1:00 PM EDT Office Visit [facility] [address] [facility] [address] [place] [phone] Abiola Connolly PA-C [address] [facility] [address] [place], [place] [id number] [facility] Start: 02-01-2023 End: 02-02-2024 XR Knee - right 1 or 2 Views XR knee 1 or 2 views right Imaging Routine S/P total knee arthroplasty, right Expected: 02/01/2023, Expires: 02/02/2024 [facility] Comment on above: Expected: 02/01/2023 , Expires: 02/02/2024 Start: 02-01-2023 End: 02-02-2024 XR knees anteroposterior standing bilateral XR knees anteroposterior standing bilateral Imaging Routine S/P total knee arthroplasty, right Expected: 02/01/2023, Expires: 02/02/2024 [facility] [employer] [facility] Work Phone: Comment on above: Expected: 02/01/2023 , Expires: 02/02/2024 Start: 01-12-2023 End: 01-12-2023 Admission to same day surgery center 01/12/2023 Surgery Procedural Almas Laureano MD [address] [facility] [address] [place] [address] Right Total Knee Arthroplasty [83459 (CPT )] [facility] Comment on above: Right Total Knee Art hroplasty [76870 (CPT )] Start: 01-12-2023 End: 01-12-2023 Arthrp kne condyle&platu medial&lat compartments [facility] Operating Room Start: 01-12-2023 Subsequent hospital visit by physician 01/12/2023 Hospital Encounter Procedural Almas Laureano MD [address] [facility] [address] [place] [address] [facility] Start: 01-05-2023 End: 01-05-2023 Admission to establishment 01/05/2023 Pre-Admission Testing Pre-Admission Testing [facility] Pre-Admit Testing Start: 12-14-2022 End: 12-14-2022 Patient encounter procedure 12/14/2022 Office Visit Orthopedic Surgery Almas Laureano MD [address] [facility] [address] [place] [address] [facility] Start: 12-12-2022 End: 12-13-2023 XR Knee - right 1 or 2 Views XR knee 1 or 2 views right Imaging Routine Right knee pain, unspecified chronicity Expected: 12/12/2022, Expires: 12/13/2023 [facility] Comment on above: Expected: 12/12/2022 , Expires: 12/13/2023 Start: 12-12-2022 End: 12-13-2023 XR knees anteroposterior standing bilateral XR knees anteroposterior standing bilateral Imaging Routine Right knee pain, unspecified chronicity Expected: 12/12/2022, Expires: 12/13/2023 [facility] Work Phone: Comment on above: Expected: 12/12/2022 , Expires: 12/13/2023 Start: 08-17-2022 End: 08-17-2022 Patient encounter procedure 08/17/2022 Office Visit Orthopedic Surgery Almas Laureano MD [address] [facility] [address] [place], [place] [phone] [facility] Start: 06-01-2022 Annual Wellness Visi t (AWV) Annual Wellness Visit (AWV) [facility] Start: 05-18-2022 End: 05-18-2022 Patient encounter procedure 05/18/2022 Office Visit Orthopedic Surgery Almas Laureano MD [address] [facility] [address] [place], [place] [address] [facility] [place] Start: 05-18-2022 End: 05-18-2022 Nursing evaluation of patient and report 05/18/2022 Nurse Only Orthopedic Surgery [facility] Start: 05-05-2022 End: 05-05-2022 Patient encounter procedure 05/05/2022 Office Visit Orthopedic Surgery Kim Muhammad MD [address] [facility] [address] [place] [address] [facility] [place] Start: 05-05-2022 End: 05-05-2022 Nursing evaluation of patient and report 05/05/2022 Nurse Only Orthopedic Surgery [facility] Start: 04-28-2022 End: 04-28-2022 Patient encounter procedure 04/28/2022 Office Visit Orthopedic Surgery Kim Muhammad MD [address] [facility] [address] [place] [address] [facility] [place] Start: 04-28-2022 End: 04-28-2022 Nursing evaluation of patient and report 04/28/2022 Nurse Only Orthopedic Surgery [facility] [place] Start: 04-14-2022 Influenza vaccination S [facility] Start: 03-14-2022 Influenza vaccination Flu vaccine (# 1) [facility] Start: 01-27-2022 COVID-19 Vaccine (4 - Booster for Pfizer series) COVID-19 Vaccine (4 - Booster for Pfizer series) [facility] Start: 01-27-2022 COVID-19 Vaccine (4 - Pfizer series) COVID-19 Vaccine (4 - Pfizer series) [facility] Start: 01-24-2022 End: 01-24-2022 Patient encounter procedure 01/24/2022 Office Visit Orthopedic Surgery Nurys Leong PA [address] [facility] [address] [place] [address] [facility] [place] Start: 01-24-2022 End: 01-24-2022 Nursing evaluation of patient and report 01/24/2022 Nurse Only Orthopedic Surgery [facility] [place] Start: 11-27-2021 DTaP/Tdap/Td vaccine (2 - Tdap) DTaP/Tdap/Td vaccine (2 - Tdap) [facility] Start: 04-14-2021 Influenza vaccination Flu vacc ine (Season Ended) [facility] Work Phone: Start: 01-24-2021 Annual Wellness Visi t (AWV) Annual Wellness Visit (AWV) [facility] Start: 01-18-2021 End: 01-18-2021 Patient encounter procedure 01/18/2021 Office Visit Sports Medicine [facility] Start: 12-03-2020 End: 12-03-2020 Office Visit 12/03/2020 Office Visit Sports Medicine Sid Camarena MD [address] [facility] [address] [place] [address] [phone] [facility] [place] Start: 10-04-2020 Annual Wellness Visi t (AWV) Annual Wellness Visit (AWV) [facility] Work Phone: Start: 09-30-2020 COVID-19 Vaccine (2 - Pfizer 2-dose series) COVID-19 Vaccine (2 - Pfizer 2-dose series) [facility] Work Phone: Start: 2014 Pneumococcal 65+ yea rs Vaccine (1 - PCV) Pneumococcal 65+ years Vaccine (1 - PCV) [facility] Start: 2014 Pneumococcal 65+ yea rs Vaccine (1 of 1 - PPSV23) Pneumococcal 65+ years Vaccine (1 of 1 - PPSV23) [facility] Work Phone: Start: 2009 RSV Immunization age d 60 or older (1 - 1-dose 60+ series) RSV Immunization aged 60 or older (1 - 1-dose 60+ series) [facility] Start: 2009 RSV Immunization for Adults (1 - Risk 60-74 years 1-dose series) RSV Immunization for Adults (1 - Risk 60-74 years 1-dose series) [facility] Start: 2004 Screening for osteoporosis DEXA (modify frequency per FRAX score) [facility] Start: 1999 Pneumococcal Vaccine : 50+ Years (1 of 1 - PCV) Pneumococcal Vaccine: 50+ Years (1 of 1 - PCV) [facility] Start: 1999 Screening for malign ant neoplasm of breast Breast cancer screen [facility] Start: 1999 Screening for malign ant neoplasm of colon Colon cancer screen colonoscopy [facility] Work Phone: Start: 1999 Shingles Vaccine (1 of 2) Shingles Vaccine (1 of 2) [facility] Start: 1999 Zoster Vaccines (1 of 2) Zoster Vacc kesha (1 of 2) [facility] Start: 1994 Screening for malign ant neoplasm of colon [facility] Start: 1989 Screening for malign ant neoplasm of breast Mammogram [facility] Start: 1968 DTaP/Tdap/Td vaccine (1 - Tdap) DTaP/Tdap/Td vaccine (1 - Tdap) [facility] Start: 1968 DTaP/Tdap/Td Vaccine s (1 - Tdap) DTaP/Tdap/Td Vaccines (1 - Tdap) [facility] Start: 1968 Pneumococcal Vaccine : 50+ Years (1 of 2 - PCV) Pneumococcal Vaccine: 50+ Years (1 of 2 - PCV) [facility] Start: 1967 Diabetes mellitus screening Diabetes Screening [facility] Start: 1967 Hepatitis C screening [facility] Start: 1961 Depression Monitoring Depression Mon itoring [facility] Start: 1961 Depression Screen Depression Screen [facility] Start: 1961 Depression Screening Depression Scre ening [facility] Start: 1961 Depresssion Monitoring Depresssion M onitoring [facility] Start: 1959 Lipid panel [facility] Start: 1955 Pneumococcal Vaccine : 65+ Years (1 - PCV) Pneumococcal Vaccine: 65+ Years (1 - PCV) [facility] Start: 1955 Pneumococcal Vaccine : 65+ Years (1 of 2 - PCV) Pneumococcal Vaccine: 65+ Years (1 of 2 - PCV) [facility] Start: 1949 COVID-19 Vaccine (#1) COVID-19 Vacci ne (#1) [facility] Start: 1949 Annual Wellness Visi t (AWV) Annual Wellness Visit (AWV) [facility] Start: 1949 Hepatitis B Vaccines (1 of 3 - 3-dose series) Hepatitis B Vaccines (1 of 3 - 3-dose series) [facility] Start: 1949 Hepatitis C screening Hepatitis C sc reen [facility] Work Phone: Start: 1949 Lipid panel Lipid Panel [facility] Start: 1949 Medicare Advantage Annual Wellness Visit (AWV) Medicare Advantage Annual Wellness Visit (AWV) [facility] Start: 1949 Screening for malign ant neoplasm of colon [facility] Start: 1949 Screening for osteoporosis Bone Density Scan [facility] Start: 1949 Thyroid stimulating hormone measurement TSH Level [facility] Bacteria identified in Blood by Culture Blood culture Site #1 - Suspected Infection Microbiology STAT 09/23/2024 11:06 AM EST [employer] End: 06-01-2022 Basic metabolic 2000 panel - Serum or Plasma Basic Metabolic Panel Lab Routine Tomorrow AM for 1 Occurrences starting 06/01/2022 until 06/01/2022 [employer] Work Phone: Comment on above: Tomorrow AM for 1 Oc currences starting 06/01/2022 until 06/01/2022 Basic metabolic 2000 panel - Serum or Plasma Basic Metabolic Panel Lab Routine 06/01/2022 1:41 AM EDT [employer] Work Phone: End: 01-19-2022 CBC panel - Blood by Automated count CBC Lab Routine Tomorrow AM for 1 Occurrences starting 01/19/2022 until 01/19/2022 [employer] Work Phone: Comment on above: Tomorrow AM for 1 Oc currences starting 01/19/2022 until 01/19/2022 CBC panel - Blood by Automated count CBC Lab Routine 01/19/2022 4:15 AM EDT [facility] [employer] [facility] Work Phone: End: 06-01-2022 CBC panel - Blood by Automated count CBC Lab Timed Tomorrow AM for 1 Occurrences starting 06/01/2022 until 06/01/2022 [employer] Work Phone: Comment on above: Tomorrow AM for 1 Oc currences starting 06/01/2022 until 06/01/2022 CBC panel - Blood by Automated count CBC Lab Timed 06/01/2022 1:41 AM EDT [employer] Work Phone: End: 06-01-2022 FL Greater Than 1 Hour [employer] Work Phone: Comment on above: Once for 1 Occurrenc es starting 06/01/2022 until 06/01/2022 End: 06-01-2022 Intermittent pulse oximetry Pulse Oximetry Spot Check Respiratory Care Routine One Time for 1 Occurrences starting 06/01/2022 until 06/01/2022 [employer] Work Phone: Comment on above: One Time for 1 Occur rences starting 06/01/2022 until 06/01/2022 End: 09-23-2024 Legionella and Streptococcus Urine Antigen [employer] Work Phone: Comment on above: Once (Lab) for 1 Occ urrences starting 09/23/2024 until 09/23/2024 OUTSIDE PROCEDURE SCAN OUTSIDE P ROCEDURE SCAN Procedures Ordered: 11/23/2023 [employer] Comment on above: Ordered: 11/23/2023 Oxygen therapy [Mini mum Data Set] Initiate Oxygen Therapy Protocol Respiratory Care Routine As Needed until discontinued starting 01/18/2022 [employer] [facility] Work Phone: Comment on above: As Needed until disc ontinued starting 01/18/2022 Oxygen therapy [Mini mum Data Set] Initiate Oxygen Therapy Protocol Respiratory Care Routine As Needed until discontinued starting 05/30/2022 [employer] Work Phone: Comment on above: As Needed until disc ontinued starting 05/30/2022 End: 05-30-2022 Troponin I.cardiac [Mass/volume] in Serum or Plasma Troponin Lab Timed One Time for 1 Occurrences starting 05/30/2022 until 05/30/2022 [employer] Phone: Comment on above: One Time for 1 Occur rences starting 05/30/2022 until 05/30/2022 End: 05-30-2022 Urinalysis Urinalysis Lab STAT Once for 1 Occurrences starting 05/30/2022 until 05/30/2022 [employer] Work Phone: Comment on above: Once for 1 Occurrenc es starting 05/30/2022 until 05/30/2022 End: 05-30-2022 Urine Drug Screen Urine Drug Screen Lab STAT Once for 1 Occurrences starting 05/30/2022 until 05/30/2022 [employer] Work Phone: Comment on above: Once for 1 Occurrenc es starting 05/30/2022 until 05/30/2022 End: 09-23-2024 Urine Hold Cup Urine Hold Cup Lab Timed Once for 1 Occurrences starting 09/23/2024 until 09/23/2024 [employer] Comment on above: Once for 1 Occurrenc es starting 09/23/2024 until 09/23/2024 End: 09-23-2024 US TRAUMA FAST POCUS [employer] Work Phone: Comment on above: Once for 1 Occurrenc es starting 09/23/2024 until 09/23/2024 VL DUP LOWER EXTREMI TY VENOUS BILATERAL VL DUP LOWER EXTREMITY VENOUS BILATERAL Imaging Routine Every Mo,Th until discontinued starting 06/02/2022, 1 completed [employer] Work Phone: Comment on above: Every Mo,Th until di scontinued starting 06/02/2022, 1 completed End: 09-13-2023 XR Hip - right 3 Views [employer] Work Phone: Comment on above: Once for 1 Occurrenc es starting 09/13/2023 until 09/13/2023 End: 12-14-2022 XR Knee - right 1 or 2 Views [employer] Comment on above: Once for 1 Occurrenc es starting 12/14/2022 until 12/14/2022 End: 01-12-2023 XR Knee - right 1 or 2 Views [employer] Work Phone: Comment on above: Once for 1 Occurrenc es starting 01/12/2023 until 01/12/2023 End: 12-14-2022 XR knees anteroposterior standing bilateral [employer] Work Phone: Comment on above: Once for 1 Occurrenc es starting 12/14/2022 until 12/14/2022 End: 02-25-2025 XR Lumbar spine Views W flexion and W extension [employer] Comment on above: Once for 1 Occurrenc es starting 02/25/2025 until 02/25/2025 End: 03-03-2022 XR Shoulder Left 2 VW [facility] Work Phone: Comment on above: 1 Occurrences starti ng 03/03/2022 until 03/03/2022 End: 05-05-2022 XR Shoulder Left 2 VW [employer] [facility] Work Phone: Comment on above: 1 Occurrences starti ng 05/05/2022 until 05/05/2022 Immunizations Immunization Date Immunization Notes Care Provider [place] valentin 07-23-2023 tetanus toxoid, redu dina diphtheria toxoid, and acellular pertussis vaccine, adsorbed Jaimee Ramírez PA-C Work Phone: [facility] [employer] 12-02-2021 Covid-19, Pfizer Gra y Top, Do Not Dilute, (Age 12 Y+), Im, L Abiola Mohsen HAUESR Work Phone: [employer] 06-03-2021 Pfizer SARS-CoV-2 Vaccination Abiola Escobarnarcisa GONZALEZNarenMissy Work Phone: [facility] [employer] 09-09-2020 Pfizer SARS-CoV-2 Vaccination Abiola Connolly CARLOSMabel Work Phone: [facility] [employer] 06-02-2016 influenza virus vacc ine, unspecified formulation Abiola Mohsen HAUSER Work Phone: [facility] [employer] Payers Date Payer Category Payer Self-pay [id number] 2024 Unknown [id number] 2023 Medicare HMO [id number] 2023 Unknown [id number] 2022 Medicare 2020 Medicaid [id number] 2020 Medicaid [id number] [id number] 2016 Medicare MEDICARE MEDICAR E PART A AND B [id number] 2016-Present [phone] [place] [address] [id number] [id number] 1949 Unknown [id number] 2.16.840.1.659322.3.579.2.8 1949 Unknown [id number] 2..840.1.278346.3.579.2. 1949 Unknown [id number] 2.16.840.1.988452.3.579.2. 1949 Unknown [id number] 2.840.1.171211.3.579.2. 1949 Unknown [id number] 2.840.1.924588.3.579.2 1949 Unknown [id number] 2.840.1.715493.3.579.2 1949 Unknown [id number] 2.840.1.629549.3.579.2 1949 Unknown [id number] 2.840.1.912963.3.579.2 1949 Unknown [id number] 2.840.1.134082.3.579.2 1949 Unknown [id number] 2.840.1.535788.3.579.2 1949 Unknown [id number] 2.840.1.819749.3.579.2.66 Unknown Unknown [id number] 2.840.1.857764.3.579.2.462 Unknown [id number] 2.16.840.1.555076.3.579.2.462 Unknown [id number] 2.16.840.1.669096.3.579.2.462 Unknown [id number] 2.16.840.1.055541.3.579.2.462 Unknown [id number] 2.16.840.1.953740.3.579.2.462 Unknown [id number] 2.16.840.1.314761.3.579.2.462 Unknown [id number] 2.16.840.1.201836.3.579.2.462 Unknown [id number] 2.16.840.1.883571.3.579.2.462 Social History Date Type Detail Facility Start: 10-06-2020 End: 03-03-2022 Tobacco smoking status NHIS Former smoker [employer] Phone: Start: 10-06-2020 End: 07-19-2022 Tobacco use and exposure Never used [employer] Phone: Start: 10-06-2020 End: 02-25-2025 Alcohol intake Ex-drinker (finding) [employer] Phone: Start: 1950 Sex Assigned At Not on file [facility] [employer] Work Phone: Start: 1950 Sex Assigned At Female [facility] End: 08-14-2011 History of tobacco use Current smoker [employer] Phone: Start: 01-08-2022 End: 02-08-2023 Exposure to SARS-CoV-2 (event) Not sure [employer] Phone: End: 08-14-2011 History of tobacco use Cigarette Smoker [employer] [facility] Start: 07-19-2022 [facility] [employer] Start: 07-06-2022 History SDOH Alcohol Frequency 1 [facility] [employer] [employer] Start: 07-06-2022 History SDOH Alcohol Std Drinks 0 [facility] [employer] Start: 07-06-2022 End: 07-24-2023 History of Social function [facility] [employer] [employer] Start: 07-06-2022 End: 07-24-2023 Alcohol Use Disorder Identification Test - Consumption [AUDIT-C] [facility] How often to you hav e a drink containing alcohol? Never [facility] How many standard dr inks containing alcohol do you have on a typical day? Patient does not drink [facility] Do you belong to any clubs or organizations such as rastafari groups, unions, fraternal or athletic groups, or school groups? No [facility] [employer] Do you feel stress - tense, restless, nervous, or anxious, or unable to sleep at night because your mind is troubled all the time - these days [OSQ] Very much [employer] (I/We) worried wheth er (my/our) food would run out before (I/we) got money to buy more. Never true [employer] Start: 03-14-2022 End: 10-18-2024 Sex Female (finding) [employer] NEGATED: Highlighted rowStart: NINF History of tobacco use Passive smoker [facility] [employer] Medical Equipment Procedure Code Equipment Code Equipment Origin al Text Equipment Identifier Dates Cement Bone Simp nick P Full - [id number] ()[id number], [id number] FDA Start: 01-12-2023 Attune Knee Syst em Tibial Insert Fixed Bearing Medial Stabilized Size 5 Right ()[id number] FDA Start: 01-12-2023 Patella Dome Med Attune 35mm - [id number] ()[id number] FDA Start: 01-12-2023 Attune Femoral Cruciate Retaining Size 5 Right Cemented ()[id number] FDA Start: 01-12-2023 Base Tib Cement Attune Fb Sz7 - [id number] ()[id number], [id number] FDA Start: 01-12-2023 Clinical Notes 01-07-2022 to 02-25-2025 Opal Espinoza MD - 02/25/2025 2:45 PM EDTPatient Elizabeth Nieves, SHA - 09/27/2024 3:48 PM Pritesh Nieves, SHA - 09/27/2024 3:48 PM Diogo Alexandre RN - 09/26/2024 10:00 AM EST Note Date & Type Note Facility 02-25-2025 History of Presen t illness Narrative Images from the original note were not included. [facility] [address] [place] [address] [place] [address] Dept: [phone] Dept Chief Complaint Patient presents with Follow-up [...] exercises given. and an outside facility - residential. -Written patient information provided in the AVS. -Reasons to call or return discussed with patient, including signs of worsening nerve dysfunction. -Will see back in ~6 weeks. No follow-ups on file. Opal Espinoza MD 02/25/2025 3:06 PM Please note that portions of this note may have been completed with voice recognition software. Documentation reviewed prior to signing but minor errors in supervisor prop making may have occurred. documented in this encounter [facility] 02-25-2025 Instructions Opal Espinoza MD - 02/25/2025 2:45 PM EDT Images from the original note were not included. documented in this encounter [facility] 09-27-2024 Nurse Note Patient IV taken out. Patient discharged off unit in stable condition via private vehicle. [facility] 09-27-2024 Nurse Note Patient IV taken out. [...] verbalized understanding. Prevention Measures in place, including: [place] sheet with pillows in place, Bilateral) foam [...] gluteal cleft. Prevention Measures in place, including: [place] sheet with pillows/wedges, Foam heel protectors (obtained [...] pt's bedside table. documented in this encounter [facility] 09-27-2024 Note Formatting of this n ote might be different from the original. Auth approved. TCC messaged attending to place orders, RN and SW to make aware of DC today. Discharge order placed. ROSALIO completed. TC tasked [employer] REPAIR TEACH[employer] to set up transport. Transport set up for 3:00 pm. TCC notified RN and national secretary of time. TCC updated pt at bedside of DC and time and possible cost of transport. Pt verbalized understanding. TCC spoke to son via phone call to update and time. [employer] REPAIR TEACH[employer] notified facility. TCC tasked [employer]IO REPAIR TEACH[employer] to transmit discharge ordrers to SNF. Pt does not need PASR as she is a return to same facility. Discharge date updated and milestones completed. Pt will be transported to [facility] via ambulance transport today at 3:00 pm. [facility] 09-27-2024 Note Formatting of this n ote might be different from the original. Auth approved. TCC messaged attending to place orders, RN and SW to make aware of DC today. Discharge order placed. ROSALIO completed. TC tasked [employer] REPAIR TEACH[employer] to set up transport. Transport set up for 3:00 pm. TCC notified RN and national secretary of time. TCC updated pt at bedside of DC and time and possible cost of transport. Pt verbalized understanding. TCC spoke to son via phone call to update and time. [employer] REPA[employer] notified facility. TCC tasked RADIO REPAIR TEACHER to transmit discharge ordrers to SNF. Pt does not need PASR as she is a return to same facility. Discharge date updated and milestones completed. Pt will be transported to [facility] via ambulance transport today at 3:00 pm. [facility] 09-27-2024 Miscellaneous Notes Auth approved. TCC messaged attending to place orders, RN and SW to make aware of DC today. Discharge order placed. ROSALIO completed. TC tasked [employer]IO REPAIR TE[employer]ER to set up transport. Transport set up for 3:00 pm. TCC notified RN and national secretary of time. TCC updated pt at bedside of DC and time and possible cost of transport. Pt verbalized understanding. TCC spoke to son via phone call to update and time. RADIO REPAIR TEACHER notified facility. [facility] tasked [facility] to transmit discharge ordrers to SNF. Pt does not need PASR as she is a return to same facility. Discharge date updated and milestones completed. Pt will be transported to [facility] via ambulance transport today at 3:00 pm. Confirmed pickup time of 3 pm by transport company [employer] at phone number . Location of facility drop off is [facility]. [facility], [facility] Betzaida Andrade notified on secure chat. MAR & Discharge med list transmitted to [facility] per [facility] request. Transport requested in [facility]. Awaiting time [...] TCC tasked Rosanna to start auth for [facility]. Auth pending. TCC will follow for auth. [...] SNF LOC if possible, PT recommending SNF. [facility] will take pt back SNF LOC. Pt [...] or improved Outcome: Progressing [facility]erral placed [facility] [...] c-diff rule out now. Pt is from [facility]. TCC spoke to pt at bedside, she is agreeable to return. TCC spoke to son Giana via phone call to update of DC plan. TCC tasked RADIO REPAIR TEACHER to make a LTC return referral. TCC will follow for facility response. Problem: Pain - Adult Goal: Verbalizes/displays adequate comfort level or baseline comfort level Outcome: Progressing Problem: Safety - Adult Goal: Free from fall injury Outcome: Progressing Problem: Knowledge Deficit Goal: Patient/family/caregiver demonstrates understanding of disease process, treatment plan, medications, and discharge instructions Outcome: Progressing documented in this encounter [facility] 09-27-2024 Note Formatting of this n ote might be different from the original. Confirmed pickup time of 3 pm by transport [employer] at phone number . Location of facility drop off is [facility]. Facility notified via [facility], TCC Betzaida Andrade notified on secure chat. [facility] 09-27-2024 Note Formatting of this n ote might be different from the original. Confirmed pickup time of 3 pm by transport [employer] at phone number . Location of facility drop off is [facility]. Facility notified via [facility], TCC Betzaida Andrade notified on secure chat. [facility] 09-27-2024 Note Formatting of this n ote might be different from the original. MAR & Discharge med list transmitted to [facility] via [facility] per TCC request. [facility] 09-27-2024 Note Formatting of this n ote might be different from the original. MAR & Discharge med list transmitted to [facility] via [facility] per TCC request. [facility] 09-27-2024 Note Formatting of this n ote might be different from the original. Transport requested in [employer]. Awaiting time confirmation. [facility] 09-27-2024 Note Formatting of this n ote might be different from the original. Transport requested in [employer]. Awaiting time confirmation. [facility] 09-27-2024 Note Hospitalist Discharg e Summary Andre [...] now Question: Diet type Answer: Regular 09/23/24 4086 Activity: as tolerated Recommended Outpatient Tests: CBC and BMP in 3 days Disposition: Patient discharged in stable condition to SNF . Greater than 31 minutes spent discharging the patient and coming up with patient discharge plan. Vitals: BP 126/83 Pulse 86 Temp 36.3 ?C (97.4 ?F) (Temporal) Resp 18 Ht 5' 6.5 (1.689 m) Wt 182 lb 1.6 oz [...] Commonly known as: ZyrTEC cholecalciferol 1.25 MG (28239 UT) tablet Commonly known as: Vitamin D3 [...] your nurse o (more content not included)... [facility] 09-27-2024 Hospital course Narrative Hospitalist Discharge Summary [...] now Question: Diet type Answer: Regular 09/23/24 1042 Activity: as tolerated Recommended Outpatient Tests: CBC and BMP in 3 days Disposition: Patient discharged in stable condition to SNF . Greater than 31 minutes spent discharging the patient and coming up with patient discharge plan. Vitals: BP 126/83 Pulse 86 Temp 36.3 C (97.4 F) (Temporal) Resp 18 Ht 5' 6.5 (1.689 m) Wt 182 lb 1.6 oz [...] Commonly known as: ZyrTEC cholecalciferol 1.25 MG (53154 UT) tablet Commonly known as: Vitamin D3 [...] capsule Recommended Follow-up: Ria Longoria MD [address] [facility] [address] Follow up in 1 week(s) Complexity of Follow up: [] Moderate Complexity: follow up within 7-14 calendar days (59043) [x] Severe Complexity: follow up within 7 calendar days (75666) Follow up Testing, Pending results or Referrals [...] frame. Signed: Dennis Davies DO Division of [facility] Medicine Inpatient Medical Services/[facility] 09/27/2024, 10:07 AM documented in this encounter [facility] 09-27-2024 Note Hospitalist Progress Note Subjective: Admit Date: 09/23/2024 PCP: Ria Longoria MD Room#: [id number] A Chief Complaint Patient presents with Fall Fall and hit head on floor. c/o R hip pain. Baseline Aox3, per EMS Aox1-2. Takes plavix and has been feeling ill lately. Brief Hospital course: Presented after a fall. Pt had a witnessed mechanical fall at [facility], has a bruise on forehead. Pt reports [...] PROT 6.8 PT/INR: No results for input(s): PROTIME, INR in the last 72 hours. CARDIAC ENZYMES: No results for input(s): TROPONINI in the last 72 hours. Procalcitonin: No results found for: PROCAL COVID-19 PCR: No results for input(s): COVID19 in the last 72 hours. Objective: Vitals: BP 126/83 Pulse 86 Temp 36.3 ?C (97.4 ?F) (Temporal) Resp 18 Ht 5' 6.5 (1.689 m) Wt 182 lb 1.6 oz [...] Emergency Contact: Giana Blanca Mobile Relation: Son Bag Cutter needed? No Dennis Davies DO Division of Hospital Medicine Inpatient Medical Services/[facility] 09-27-2024 Note Hospitalist Progress Note Subjective: Admit Date: 09/23/2024 PCP: Ria Longoria MD Room#: [id number] A Chief Complaint Patient presents with Fall Fall and hit head on floor. c/o R hip pain. Baseline Aox3, per EMS Aox1-2. Takes plavix and has been feeling ill lately. Brief Hospital course: Presented after a fall. Pt had a witnessed mechanical fall at [facility], has a bruise on forehead. Pt reports [...] PROT 6.8 PT/INR: No results for input(s): PROTIME, INR in the last 72 hours. CARDIAC ENZYMES: No results for input(s): TROPONINI in the last 72 hours. Procalcitonin: No results found for: PROCAL COVID-19 PCR: No results for input(s): COVID19 in the last 72 hours. Objective: Vitals: BP 126/83 Pulse 86 Temp 36.3 ?C (97.4 ?F) (Temporal) Resp 18 Ht 5' 6.5 (1.689 m) Wt 182 lb 1.6 oz [...] Emergency Contact: Giana Blanca Mobile Relation: Son Bag Cutter needed? No Dennis Davies DO Division of [facility] Medicine Inpatient Medical Services/[facility] 09-27-2024 History of Presen t illness Narrative Hospitalist Progress Note Subjective: Admit Date: 09/23/2024 PCP: Ria Longoria MD Room#: N7-789/E5-072 A Chief Complaint Patient presents with Fall Fall and hit head on floor. c/o R hip pain. Baseline Aox3, per EMS Aox1-2. Takes plavix and has been feeling ill lately. Brief Hospital course: Presented after a fall. Pt had a witnessed mechanical fall at [facility], has a bruise on forehead. Pt reports [...] PROT 6.8 PT/INR: No results for input(s): PROTIME, INR in the last 72 hours. CARDIAC ENZYMES: No results for input(s): TROPONINI in the last 72 hours. Procalcitonin: No results found for: PROCAL COVID-19 PCR: No results for input(s): COVID19 in the last 72 hours. Objective: Vitals: BP 126/83 Pulse 86 Temp 36.3 C (97.4 F) (Temporal) Resp 18 Ht 5' 6.5 (1.689 m) Wt 182 lb 1.6 oz [...] Emergency Contact: Giana Blanca Mobile Relation: Son Bag Cutter needed? No Dennis Davies DO Division of Hospital Medicine Inpatient Medical Services/[facility] Inpatient Consult Service Admission Date:09/23/2024 [...] review of chart, plan to return to [facility] Bipolar disorder - per facility is followed by in house psych team at [facility] - see medication recommendations as below, significant polypharmacy- on several psych medications, would benefit from psychiatry input for ability to limit her pill burden Polypharmacy - Per nurse Carli at [facility] on 09/24- patient is reported to [...] of continuation of both Seroquel and Risperdal fci - Tizanidine 2mg BID- unclear indication for this, would recommend attempts at gradual dose reduction vs changing to PRN - Pregabalin 150mg BID- restarted - Vistaril 25mg BID- OK to continue to hold at this time, 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marine oil terminal- due to anticholinergic effects may further contribute [...] she knows that she is currently at [facility] Therapy recommendations Seen by PT/OT today- both [...] (97.4 F) (Temporal) Resp 16 Ht 5' 6.5 (1.689 m) Wt 182 lb 1.6 oz [...] mg, 10 mg, Oral, TID, Shweta Carson, DOPE MAINTENANCE WORKER - ASW/ASUW TACTICAL AIR CONTROLLER, 10 mg at 09/26/24 1337 carBAMazepine (TEGretol) [...] tablet 0.5 mg, 0.5 mg, Oral, BID, Shweta Carson APRN - JOSÉ, 0.5 mg at 09/26/24 0839 senna-docusate sodium (Senokot-S) 8.6-50 MG tablet 2 tablet, 2 tablet, Oral, Daily, Lashon Sullivan MD, 2 tablet at 09/25/24 0873 stomahesive in petrolatum (ET Mix), , Topical, [...] TSH 0.57 09/25/2024 No components found for: B12 Lab Results Component Value Date VITD25 40 [...] Pt had a [facility] fall [facility], has a bruise on forehead. Pt reports [...] PROT 6.8 PT/INR: No results for input(s): PROTIME, INR [...] (97.4 F) (Temporal) Resp 20 Ht 5' 6.5 (1.689 m) Wt 182 lb 1.6 oz [...] Emergency Contact: Giana Blanca Mobile Relation: Son Bag Cutter needed? 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, pt CBW 182# bedscale on 09/25, was 180# no method on 09/23 presentation, per EPIC review --> very limited history/nothing recent, noted 05/30/22: 195#) Body Fat Loss: No significant body fat loss Muscle Mass Loss: No significant muscle mass loss Fluid Accumulation: No significant fluid accumulation Splicing Technician Strength: Not Performed Nutrition Assessment: pt with PMH significant for bipolar disorder, DVT, hypothyroidism, TIA, COPD, COVID-19, depression, dysphagia, fibromyalgia, HLD, IBS, obesity and RAULITO (per merge chart) who presented to [facility] on 09/23/24 from facility s/p [...] is impacting appetite, [facility] reported pt with baseline anxiety and follows with in house psychiatric mental health nurse, Geriatrics noted significant polypharmacy- on several psych medications and recommended psychiatry input for ability to limit her pill burden (consult has not been placed), noted 09/24 pt with complaints of loose stools- CDiff and GI panel sent and negative, pt seen by PT/OT with d/c to [facility] recs. In terms of nutrition pt has been receiving a Regular Diet since 09/23, PO intakes in flowsheets reviewed --> 09/23: 1-25% D, 09/24: 1-25% B and refused L/D, RD received consultant dietitian referral for poor intake, at time of assessment pt with breakfast tray in front of her, she states that she tried to eat some but it was cold, RD offered to heat it up but pt requesting a new Rw[place] muffin and rico- RD called room service to provide, pt states that her appetite is poor because her food was cold, pt denies food allergies, denies chewing/swallowing issues, per review of paper chart at [facility] pt was ordered a regular diet, regular textures/thin liquids, RD offered ONS to which pt replies 'they tried to make me drink those before and they are terrible', RD offered Ensure Clear and Magic Cup instead and pt continues to refuse ONS initiation despite encouragement, pt denies that she has had any 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 Estimated Daily Nutrient Needs: Energy Requirements Based On: Kcal/kg Weight Used for Energy Requirements: [place] Weight for Energy Calculation (kg): 60.2 kg Total Energy Requirements (kcals/day): 1505-1806kcals/day Weight Used for Protein Requirements: [place] Weight in Kg Used for Protein Requirements: 60.2 kg Estimated Total Protein (g/day): 60-72gm pro/day Estimated Daily Total Fluid (ml/day): per MD recommendations Nutrition Related Findings: Lives with: Other (Comment) (shelter care facility) Orientation Level: Oriented to person, [...] Ordered Anthropometric Measures: Height: 168.9 cm (5' 6.5) Current Body Weight: 82.6 kg (182 lb) (bedscale 09/25) Weight Source: Bed Scale Admission Body Weight: 81.6 kg (180 lb) (no method 09/23) Usual Body Weight: (per EPIC review --> very limited history/nothing recent, noted 05/30/22: 195#, pt unsure of UBW but denies weight loss 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) [place] Body Weight (lbs) (Calculated): 133 lbs [place] Body Weight (Kg) (Calculated): 60 kg % [place] Body Weight (Calculated): 136.8 % BMI (kg/m2) [...] determine Guerda Ventura RD Contact: available via WeStudy.In chat or *[phone] [facility] Inpatient Consult Service Admission Date:09/23/2024 [...] followed by in house psych team at [facility] - see medication recommendations as below, significant polypharmacy- on several psych medications, would benefit from psychiatry input for ability to limit her pill burden Hypothyroidism - TSH within normal limits - 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, currently ordered 75mcg, please adjust dose if appropriate- defer management to primary team Polypharmacy - I personally called and spoke with nurse Boyce at [facility] on 09/24 to review medications- reported [...] of continuation of both Seroquel and Risperdal fci - Tizanidine 2mg BID- unclear indication for this, would recommend attempts at gradual dose reduction vs changing to PRN - Pregabalin 150mg BID- restarted - Vistaril 25mg BID- OK to continue to hold at this time, 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marine oil terminal- due to anticholinergic effects may further contribute [...] (98 F) (Temporal) Resp 18 Ht 5' 7 (1.702 m) Wt 180 lb (81.6 kg) [...] mg, 10 mg, Oral, TID, Shweta Carson, DOPE MAINTENANCE WORKER - ASW/ASUW TACTICAL AIR CONTROLLER, 10 mg at 09/25/24 1401 carBAMazepine (TEGretol) tablet 200 mg, 200 mg, Oral, TID, Lashon Sullivan MD, 200 mg at 09/25/24 0952 cefTRIAXone (Rocephin) 1,000 mg in sodium chloride 0.9 % 50 mL IVPB Mini-Bag Plus, 1,000 mg, IntraVENous, q24h, Lashon Sullivan MD, Stopped at 09/25/24 1235 clopidogrel (Plavix) tablet 75 mg, 75 mg, Oral, Daily, aLshon Sullivan MD, 75 mg at 09/25/24 0858 [...] Nightly, Lashon Sullivan MD, 40 mg at 09/24/247 pregabalin (Lyrica) capsule 150 mg, 150 mg, [...] TSH 0.57 09/25/2024 No components found for: B12 Lab Results Component Value Date VITD25 40 09/24/2024 Reviewed: active problem list, medication list, allergies, notes from last encounter, lab results, imaging Images from the original note were not included. PHYSICAL THERAPY [facility] Treatment Note Name/MRN: Andre Blanca ([id number]) Date of : 1950 Age: 74 y.o. Room/Bed: E5515/[facility] Discharge Recommendation: Long-Term Facility Equipment Needed: No Prior Level of [...] Mobility Raw Score (No Stairs) : 15 -[facility] Goals Patient Stated Goal: to return [...] original note were not included. OCCUPATIONAL THERAPY [facility] Initial Evaluation Name/MRN: Andre Blanca ([id number]) Evaluation Date: 09/25/2024 Date of : 1950 Admission Date: 09/23/2024 10:34 AM Age: 74 y.o. Room/Bed: E5-515/E5-515 A Discharge Recommendation: Long-Term Facility Assessment IMPRESSION: Pt would benefit from [...] Social/Functional History Patient admitted from SNF. - [facility] Assistive Equipment: rollator Prior Level of Function [...] Daily Activity Raw Score: 13 ADL Inpatient [facility] G-Code Modifier: CL Plan Pt would benefit [...] of Care supervision is transferred to a [facility] Therapy Services Occupational Therapist. Goals and/or treatment [...] Pt had a witnessed mechanical fall [facility], has a bruise on forehead. Pt reports [...] 1.2* CARDIAC ENZYMES: No results for input(s): TROPONINI in the last 72 hours. Procalcitonin: Lab Results Component Value Date PROCAL 0.18 (H) 09/23/2024 COVID-19 PCR: No results for input(s): COVID19 in the last 72 hours. Objective: Vitals: BP 136/64 (BP Location: Right arm, Patient Position: Sitting) Pulse 80 Temp 36.7 C (98 F) (Temporal) Resp 18 Ht 5' 7 (1.702 m) Wt 180 lb (81.6 kg) [...] Emergency Contact: Giana Blanca Mobile Relation: Son Bag Cutter needed? No Dennis Davies DO Division of Hospital Medicine Inpatient Medical Services/[facility] .Nutrition rescreen completed. Patient referred to the Dietitian. Poor po intake.TESSIE Sanchez Hospitalist Progress Note Subjective: Admit Date: 09/23/2024 PCP: Ria Longoria MD Room#: C7-408/R2-975 A Chief Complaint Patient presents with Fall [...] ANIONGAP 7 LIVER PROFILE:No results for input(s): AST, ALT, BILITOT, ALKPHOS, PROT in the last 72 hours. No lab exists for component: LABALBU PT/INR: Recent Labs 09/23/24 1048 PROTIME 12.9* INR 1.2* CARDIAC ENZYMES: No results for input(s): TROPONINI in the last 72 hours. Procalcitonin: Lab Results Component Value Date PROCAL 0.18 (H) 09/23/2024 COVID-19 PCR: No results for input(s): COVID19 in the last 72 hours. Objective: Vitals: BP 117/66 (BP Location: Right arm, Patient Position: Lying) Pulse 82 Temp 36.6 C (97.9 F) (Temporal) Resp 16 Ht 5' 7 (1.702 m) Wt 180 lb (81.6 kg) [...] Emergency Contact: Giana Blanca Mobile Relation: Son Bag Cutter needed? No Dennis Davies DO Division of [facility] Medicine Inpatient Medical Services/[facility] Images from the original note were not included. PHYSICAL THERAPY [facility] Initial Evaluation Name/MRN: Andre Blanca ([id number]) Evaluation Date: 09/24/2024 Date of : 1950 Admission Date: 09/23/2024 10:34 AM Age: 74 y.o. Room[facility]: [facility] A Discharge Recommendation: Long-Term Facility Equipment Needed: No Assessment IMPRESSION: 74 y/o female admitted to [facility] 09/23/2024 s/p fall at ECF. Pt [...] Stair climbing assessed?: No ([facility] AM-PAC Inpatient Mobility Raw Score (No Stairs) : 15 JH-HLM -HLM Score: Walked 25 ft or more (i.e. [...] of Care supervision is transferred to a [facility] Therapy Services Physical Therapist. Goals and/or treatment plan was established in collaboration with patient/family/other representatives. documented in this encounter [facility] 09-27-2024 Plan of care note Problem: Pain [...] Interventions Goal: Assess Nutritional Intake Outcome: Progressing [facility] 09-26-2024 Note Formatting of this n ote might be different from the original. TCC updated [facility] that plan to start auth today. TCC tasked Rosanna to start auth for [facility]. Auth pending. TCC will follow for auth. [facility] 09-26-2024 Note Formatting of this n ote might be different from the original. TCC updated SNF that plan to start auth today. TCC tasked Rosanna to start auth for [facility]. Auth pending. TCC will follow for auth. [facility] 09-26-2024 Note Hospitalist Progress Note Subjective: Admit Date: 09/23/2024 PCP: Ria Longoria MD Room#: E5515/E5515 A Chief Complaint Patient presents with Fall Fall and hit head on floor. c/o R hip pain. Baseline Aox3, per EMS Aox1-2. Takes plavix and has been feeling ill lately. Brief Hospital course: Presented after a fall. Pt had a witnessed mechanical fall at [facility], has a bruise on forehead. Pt reports [...] PROT 6.8 PT/INR: No results for input(s): PROTIME, INR [...] (97.4 ?F) (Temporal) Resp 20 Ht 5' 6.5 (1.689 m) Wt 182 lb 1.6 oz [...] Emergency Contact: Giana Blanca Mobile Relation: Son Bag Cutter needed? No Dennis Davies DO Division of Hospital Medicine Inpatient Medical Services/[facility] 09-26-2024 Note Hospitalist Progress Note Subjective: Admit Date: 09/23/2024 PCP: Ria Longoria MD Room#: E5-515/E5-515 A Chief Complaint Patient presents with Fall Fall and hit head on floor. c/o R hip pain. Baseline Aox3, per EMS Aox1-2. Takes plavix and has been feeling ill lately. Brief Hospital course: Presented after a fall. Pt had a witnessed mechanical fall at [facility], has a bruise on forehead. Pt reports [...] PROT 6.8 PT/INR: No results for input(s): PROTIME, INR [...] (97.4 ?F) (Temporal) Resp 20 Ht 5' 6.5 (1.689 m) Wt 182 lb 1.6 oz [...] Emergency Contact: Giana Blanca Mobile Relation: Son Bag Cutter needed? 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, pt CBW 182# bedscale on 09/25, was 180# no method on 09/23 presentation, per EPIC review --> very limited history/nothing recent, noted 05/30/22: 195#) Body Fat Loss: No significant body fat loss Muscle Mass Loss: No significant muscle mass loss Fluid Accumulation: No significant fluid accumulation Splicing Technician Strength: Not Performed Nutrition Assessment: pt with PMH significant for bipolar disorder, DVT, hypothyroidism, TIA, COPD, COVID-19, depression, dysphagia, fibromyalgia, HLD, IBS, obesity and RAULITO (per merge chart) who presented to [facility] on 09/23/24 from facility s/p [...] is impacting appetite, pt RN from facility ([facility] [place]) reported pt with baseline anxiety and follows with in house psychiatric mental health nurse, Geriatrics noted significant polypharmacy- on several psych [...] 1-25% B and refused L/D, RD received consultant dietitian referral for poor intake, at time of assessment pt with breakfast tray in front of her, she states that she tried to eat some but it was cold, RD offered to heat it up but pt requesting a new Rw[place]an muffin and rico- RD called room service to provide, pt states that her appetite is poor because her food was cold, pt denies food allergies, denies chewing/swallowing issues, per review of paper chart at [facility] pt was ordered a regular diet, regular textures/thin liquids, RD offered ONS to which pt replies 'they tried to make me drink those before and they are terrible', RD offered Ensure Clear and Magic Cupinstead and pt continues to refuse ONS initiation despite encouragement, pt denies that she has had any 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, pt CBW 182# bedscale on 09/25, was 180# no method on 09/23 presentation, per EPIC review --> very limited history/nothing recent, noted 05/30/22: 195#) Body Fat Loss: No significant body fat loss Muscle Mass Loss: No significant muscle mass loss Fluid Accumulation: No significant fluid accumulation Splicing Technician Strength: Not Performed Nutrition Assessment: pt with PMH significant for bipolar disorder, DVT, hypothyroidism, TIA, COPD, COVID-19, depression, dysphagia, fibromyalgia, HLD, IBS, obesity and RAULITO (per merge chart) who presented to [facility] on 09/23/24 from facility s/p [...] is impacting appetite, [facility] reported pt with baseline anxiety and follows with in house psychiatric mental health nurse, Geriatrics noted significant polypharmacy- on several psych [...] 1-25% B and refused L/D, RD received consultant dietitian referral for poor intake, at time of assessment pt with breakfast tray in front of her, she states that she tried to eat some but it was cold, RD offered to heat it up but pt requesting a new [place]wandan muffin and rico- RD called room service to provide, pt states that her appetite is poor because her food was cold, pt denies food allergies, denies chewing/swallowing issues, per review of paper chart at [facility] pt was ordered a regular diet, regular textures/thin liquids, RD offered ONS to which pt replies 'they tried to make me drink those before and they are terrible', RD offered Ensure Clear and Magic Cupinstead and pt continues to refuse ONS initiation despite encouragement, pt denies that she has had any 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 [facility] 09-26-2024 Nurse Note Wound Care consulted for [...] verbalized understanding. Prevention Measures in place, including: [place] sheet with pillows in place, Bilateral) foam [...] questions or concerns. Kimmy Alexandre RN, BSN [facility] 09-26-2024 Plan of care note Problem: Pain - Adult Goal: Verbalizes/displays adequate comfort level or baseline comfort level Outcome: Progressing Flowsheets (Taken 09/26/2024 6394) Verbalizes/displays adequate comfort level or baseline comfort [...] on admission and per policy Avoid shearing [facility] 09-25-2024 Hospital Discharg e instructions Dennis Davies DO - 09/25/2024 12:48 PM EST As tolerated Galina Nieves RN - 09/25/2024 12:48 PM EST Images from the original note were not included. Continuity of Care Form Patient Name: Andre Blanca : 1950 Admit date: 09/23/2024 Discharge date: 09/27/2024 Code Status Order: Full Code Advance Directives: N Admitting Physician: Lashon Sullivan MD PCP: Ria Longoria MD Discharging Nurse: [facility] Unit/Room#: E5-515/E5-515 A Discharging Unit Emergency Contact: Extended Emergency Contact Information Primary Emergency Contact: Giana Blanca Mobile Relation: Son Bag Cutter needed? 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 Independent Med Delivery no Wound Care Documentation [...] Date: 09/23/2024 Discharging to Facility/ Agency Name: [facility] Address:[address] [place] [address] [facility] [address] Corporate Affairs Manager/Fire Prevention Captain signature: ICIAN SECTION Name: Andre Blanca Prognosis: excellent Condition at Discharge: stable Rehab Potential (if transferring to Rehab): excellent Recommended Labs or Other Treatments After Discharge: CBC and BMP in 3 days The individual is being admitted to a nursing facility directly from an [facility] or a unit of a [facility] that is not operated by or licensed by [facility] under section 5119.14 or 5160-3-15.1 5 The individual requires the level of services provided by a nursing facility for the condition for which he or she was treated in the hospital and, Physician Certification: I certify the above information and transfer of Andre Blanca is necessary for the continuing treatment of the diagnosis listed and that she requires fdc facility for less than 30 days. Update Admission H&P: No change in H&P PHYSICIAN SIGNATURE: documented in this encounter [facility] 09-25-2024 Note OCCUPATIONAL THERAPY [facility] Initial Evaluation Name/MRN: Andre Blanca ([id number]) Evaluation Date: 09/25/2024 Date of : 1950 Admission Date: 09/23/2024 10:34 AM Age: 74 y.o. Room/Bed: E5-515/E5-515 A Discharge Recommendation: Long-Term Facility Assessment IMPRESSION: Pt would benefit from [...] Social/Functional History Patient admitted from SNF. - [facility] Assistive Equipment: rollator Prior Level of Function [...] of Care supervision is transferred to a [facility] Therapy Services Occupational Therapist. Goals and/or treatment plan was established in collaboration with patient/family/other representatives. Yu Spear MS, OTR/L [facility] 09-25-2024 Note OCCUPATIONAL THERAPY [facility] Initial Evaluation Name/MRN: Andre Blanca ([id number]) Evaluation Date: 09/25/2024 Date of : 1950 Admission Date: 09/23/2024 10:34 AM Age: 74 y.o. Room/Bed: E5-515/E5515 A Discharge Recommendation: Long-Term Facility Assessment IMPRESSION: Pt would benefit from [...] Social/Functional History Patient admitted from SNF. - [facility] Assistive Equipment: rollator Prior Level of [...] of Care supervision is transferred to a [facility] Therapy Services Occupational Therapist. Goals and/or treatment plan was established in collaboration with patient/family/other representatives. Yu Spear MS, OTR/L [facility] 09-25-2024 Note Hospitalist Progress Note Subjective: Admit [...] 1.2* CARDIAC ENZYMES: No results for input(s): TROPONINI in the last 72 hours. Procalcitonin: Lab Results Component Value Date PROCAL 0.18 (H) 09/23/2024 COVID-19 PCR: No results for input(s): COVID19 in the last 72 hours. Objective: Vitals: BP 136/64 (BP Location: Right arm, Patient Position: Sitting) Pulse 80 Temp 36.7 ?C (98 ?F) (Temporal) Resp 18 Ht 5' 7 (1.702 m) Wt 180 lb (81.6 kg) [...] Emergency Contact: Giana Blanca Mobile Relation: Son Bag Cutter needed? No Dennis Davies DO Division of [facility] Medicine Inpatient Medical Services/[facility] 09-25-2024 Note Hospitalist Progress Note Subjective: Admit Date: 09/23/2024 PCP: Ria Longoria MD Room#: E5-685/E5-938 A Chief Complaint Patient presents with Fall Fall and hit head on floor. c/o R hip pain. Baseline Aox3, per EMS Aox1-2. Takes plavix and has been feeling ill lately. Brief Hospital course: Presented after a fall. Pt had a witnessed mechanical fall at [facility], has a bruise on forehead. Pt reports [...] 1.2* CARDIAC ENZYMES: No results for input(s): TROPONINI in the last 72 hours. Procalcitonin: Lab Results Component Value Date PROCAL 0.18 (H) 09/23/2024 COVID-19 PCR: No results for input(s): COVID19 in the last 72 hours. Objective: Vitals: BP 136/64 (BP Location: Right arm, Patient Position: Sitting) Pulse 80 Temp 36.7 ?C (98 ?F) (Temporal) Resp 18 Ht 5' 7 (1.702 m) Wt 180 lb (81.6 kg) [...] Emergency Contact: Giana Blanca Mobile Relation: Son Bag Cutter needed? No Dennis Davies DO Division of [facility] Medicine Inpatient Medical Services/[facility] 09-25-2024 Note Formatting of this n ote might be different from the original. Attending wanting pt to return SNF LOC if possible, PT recommending SNF. [facility] will take pt back SNF LOC. Pt is agreeable to this. Per attending, okay to star auth. No PASR needed as pt is a return to same facility. TCC tasked PT and OT to see for updated notes. TCC will follow for notes to start auth. [facility] 09-25-2024 Note Formatting of this n ote might be different from the original. Attending wanting pt to return SNF LOC if possible, PT recommending SNF. [facility] will take pt back SNF LOC. Pt is agreeable to this. Per attending, okay to star auth. No PASR needed as pt is a return to same facility. TCC tasked PT and OT to see for updated notes. TCC will follow for notes to start auth. [facility] 09-24-2024 Plan of care note Problem: Pain [...] integrity is maintained or improved Outcome: Progressing [facility]OS[facility] 09-24-2024 Note Hospitalist Progress Note Subjective: Admit Date: 09/23/2024 PCP: Ria Longoria MD Room#: E5-508/E5508 A Chief Complaint Patient presents with Fall Fall and hit head on floor. c/o R hip pain. Baseline Aox3, per EMS Aox1-2. Takes plavix and has been feeling ill lately. Brief Hospital course: Presented after a fall. Pt had a witnessed mechanical fall at [facility], has a bruise on forehead. Pt reports [...] ANIONGAP 7 LIVER PROFILE:No results for input(s): AST, ALT, BILITOT, ALKPHOS, PROT in the last 72 hours. No lab exists for component: LABALBU PT/INR: Recent Labs 09/23/24 1048 PROTIME 12.9* INR 1.2* CARDIAC ENZYMES: No results for input(s): TROPONINI in the last 72 hours. Procalcitonin: Lab Results Component Value Date PROCAL 0.18 (H) 09/23/2024 COVID-19 PCR: No results for input(s): COVID19 in the last 72 hours. Objective: Vitals: BP 117/66 (BP Location: Right arm, Patient Position: Lying) Pulse 82 Temp 36.6 ?C (97.9 ?F) (Temporal) Resp 16 Ht 5' 7 (1.702 m) Wt 180 lb (81.6 kg) [...] Emergency Contact: Giana Blanca Mobile Relation: Son Bag Cutter needed? No Dennis Davies DO Division of Hospital Medicine Inpatient Medical Services/[facility] 09-24-2024 Note Hospitalist Progress Note Subjective: Admit Date: 09/23/2024 PCP: Ria Longoria MD Room#: J0-995/E7-447 A Chief Complaint Patient presents with Fall Fall and hit head on floor. c/o R hip pain. Baseline Aox3, per EMS Aox1-2. Takes plavix and has been feeling ill lately. Brief Hospital course: Presented after a fall. Pt had a witnessed mechanical fall at [facility], has a bruise on forehead. Pt reports [...] ANIONGAP 7 LIVER PROFILE:No results for input(s): AST, ALT, BILITOT, ALKPHOS, PROT in the last 72 hours. No lab exists for component: LABALBU PT/INR: Recent Labs 09/23/24 1048 PROTIME 12.9* INR 1.2* CARDIAC ENZYMES: No results for input(s): TROPONINI in the last 72 hours. Procalcitonin: Lab Results Component Value Date PROCAL 0.18 (H) 09/23/2024 COVID-19 PCR: No results for input(s): COVID19 in the last 72 hours. Objective: Vitals: BP 117/66 (BP Location: Right arm, Patient Position: Lying) Pulse 82 Temp 36.6 ?C (97.9 ?F) (Temporal) Resp 16 Ht 5' 7 (1.702 m) Wt 180 lb (81.6 kg) [...] Emergency Contact: Giana Blanca Mobile Relation: Son Bag Cutter needed? No Dennis Davies DO Division of Hospital Medicine Inpatient Medical Services/[facility] 09-24-2024 Note Formatting of this n ote might be different from the original. Referral placed to [facility] via [facility] per TCC request. Await review and response regarding ability to accept. TCC notified. [facility] 09-24-2024 Note Formatting of this n ote might be different from the original. Referral placed to [facility] via [facility] per TCC request. Await review and response regarding ability to accept. TCC notified. [facility] 09-24-2024 Note Referral placed to [facility] via [facility] per TCC request. Await review and response regarding ability to accept. TCC notified. [facility] 09-24-2024 Note Referral placed to [facility] via [facility] per TCC request. Await review and response regarding ability to accept. TCC notified. [facility] 09-24-2024 Note Formatting of this n ote might be different from the original. TCC completed chart review. 1 blood culture positive and 1 in process, will follow. PO azithromycin and IV rocephin. 3 L of O2-baseline from facility. Wound care consulted. Geriatrics consulted. PT and OT evals pending. Stool studies ordered, GI and c-diff rule out now. Pt is from [facility]. TCC spoke to pt at bedside, she is agreeable to return. TCC spoke to son Giana via phone call to update of DC plan. TCC tasked RADIO REPAIR TEACHER to make a [facility] return referral. TCC will follow for facility response. [facility] [employer] 09-24-2024 Note Formatting of this n ote might be different from the original. TCC completed chart review. 1 blood culture positive and 1 in process, will follow. PO azithromycin and IV rocephin. 3 L of O2-baseline from facility. Wound care consulted. Geriatrics consulted. PT and OT evals pending. Stool studies ordered, GI and c-diff rule out now. Pt is from [facility]. TCC spoke to pt at bedside, she is agreeable to return. TCC spoke to son Giana via phone call to update of DC plan. TCC tasked RADIO REPAIR TEACHER to make a [facility] return referral. TCC will follow for facility response. [facility] [employer] [employer] 09-24-2024 Note PHYSICAL THERAPY [facility] Initial Evaluation Name/MRN: Andre Blanca ([id number]) Evaluation Date: 09/24/2024 Date of : 1950 Admission Date: 09/23/2024 10:34 AM Age: 74 y.o. Room/Bed: [facility] A Discharge Recommendation: Long-Term Facility Equipment Needed: No Assessment IMPRESSION: 74 y/o female admitted to [facility] 09/23/2024 s/p fall at ECF. Pt [...] Raw Score (No Stairs) : 15 [facility] Score: Walked 25 ft or more [...] to return to (more content not included)... [facility] 09-24-2024 Note PHYSICAL THERAPY [facility] Initial Evaluation Name/MRN: Andre Blanca ([id number]) Evaluation Date: 09/24/2024 Date of : 1950 Admission Date: 09/23/2024 10:34 AM Age: 74 y.o. Room/Bed: E5-508/E5508 A Discharge Recommendation: Long-Term Facility Equipment Needed: No Assessment IMPRESSION: 74 y/o female admitted to [facility] 09/23/2024 s/p fall at ECF. Pt [...] Rec SNF level therapies upon return to EC due to significatn decline from baseline level [...] Raw Score (No Stairs) : 15 [facility] Score: Walked 25 ft or more [...] to return to (more content not included)... 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, currently ordered 75mcg, please adjust dose if appropriate- defer management to primary team Polypharmacy - I personally called and spoke with nurse Boyce at [facility] to review medications- reported to be [...] hold at this time, 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 alternative fci- due to anticholinergic effects may further contribute [...] eat much breakfast Spoke with nurseCarli at [facility], [facility] patient with anxiety, medication review as above, patient follows with an in house psychiatric mental health nurse Allergies Allergen Reactions Aspirin Butorphanol Hydromorphone Ibuprofen Oxycodone Prochlorperazine Salicylamide Sulfa Antibiotics Sumatriptan Current Facility-Administered Medications: acetaminophen (Tylenol) tablet 650 mg, 650 mg, Oral, q6h PRN, 650 mg at 09/24/24 0555 OR acetaminophen (Tylenol) suppository 650 mg, 650 mg, Rectal, q6h PRN, Lashon Sullivan MD busPIRone (Buspar) tablet 10 mg, 10 mg, Oral, TID, Shweta Carson, DOPE MAINTENANCE WORKER - ASW/[employer]UW TACTICAL AIR CONTROLLER carBAMazepine (TEGretol) tablet 200 mg, 200 mg, [...] Lashon Sullivan MD, 40 mg at 09/23/24 6407 fludrocortisone (Florinef) tablet 0.1 mg, 0.1 mg, [...] mg, 150 mg, Oral, BID, Shweta Carson, DOPE MAINTENANCE WORKER - ASW/ASUW TACTICAL AIR CONTROLLER senna-docusate sodium (Senokot-S) 8.6-50 MG tablet 2 tablet, 2 tablet, Oral, Daily, Lashon Sullivan MD No past medical history on file. No past surgical history on file. Social History Social History Tobacco Use Smoking status: Not on file Smokeless tobacco: Not on file Substance Use Topics Alcohol use: Not on file Social History Social History Narrative Not on file Patient Currently Lives: at [facility] Level of Family Support: son Community [...] (97.9 F) (Temporal) Resp 16 Ht 5' 7 (1.702 m) Wt 180 lb (81.6 kg) [...] Detected Not Detected No results found for: TSH No components found for: B12 No results found for: VITD25 Reviewed: active problem list, medication list, allergies, notes from last encounter, lab results, imaging [facility] 09-24-2024 Consult note Associated Order (s): IP CONSULT TO GERIATRICS [facility] Inpatient Consult Service Admission Date:09/23/2024 [...] followed by in house psych team at [facility] - see medication recommendations as below, significant polypharmacy- on several psych medications - recommend consultation to psychiatry for further recommendations to reduce current medication burden as able Hypothyroidism - agree with check of TSH - 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, currently ordered 75mcg, please adjust dose if appropriate- defer management to primary team Polypharmacy - I personally called and spoke with nurse Boyce at [facility] to review medications- reported to be [...] hold at this time, 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 alternative fci- due to anticholinergic effects may further contribute [...] eat much breakfast Spoke with nurseCarli at [facility], [facility] patient with anxiety, medication review as above, patient follows with an in house psychiatric mental health nurse Allergies Allergen Reactions Aspirin Butorphanol Hydromorphone Ibuprofen [...] mg, 150 mg, Oral, BID, Shweta Carson, DOPE MAINTENANCE WORKER - ASW/ASUW TACTICAL AIR CONTROLLER senna-docusate sodium (Senokot-S) 8.6-50 MG tablet 2 tablet, 2 tablet, Oral, Daily, Lashon Sullivan MD No past medical history on file. No past surgical history on file. Social History Social History Tobacco Use Smoking status: Not on file Smokeless tobacco: Not on file Substance Use Topics Alcohol use: Not on file Social History Social History Narrative Not on file Patient Currently Lives: at [facility] Level of Family Support: son Community [...] (97.9 F) (Temporal) Resp 16 Ht 5' 7 (1.702 m) Wt 180 lb (81.6 kg) [...] Detected Not Detected No results found for: TSH No components found for: B12 No results found for: VITD25 Reviewed: active problem list, medication list, allergies, notes from last encounter, lab results, imaging documented in this encounter [facility] 09-24-2024 Nurse Note Wound Care consulted for Pressure Injury Prevention. Pt's Rakan score= 18 on 09/24 Pt's pressure points assessed. Pt's Heels, Buttocks/coccyx, Back, Elbows, Occiput and ears all intact. MASD noted to gluteal cleft. Prevention Measures in place, including: [place] sheet with pillows/wedges, Foam heel protectors (obtained and applied), Heels elevated off bed on pillows, Zinc/Moisture Barrier ointment, Waffle chair cushion (obtained for pt). Skin Care precaution order set in place. Dietitian consult N/A, nutrition subscore of 3. PT/OT consult in place. Will continue to follow pt. Please [employer] for any questions or concerns. Damari Wharton RN [facility] 09-24-2024 Plan of care note Problem: Pain - Adult Goal: Verbalizes/displays adequate comfort level or baseline comfort level Outcome: Progressing Problem: Safety - Adult Goal: Free from fall injury Outcome: Progressing Problem: Knowledge Deficit Goal: Patient/family/caregiver demonstrates understanding of disease process, treatment plan, medications, and discharge instructions Outcome: Progressing [facility] [employer] 09-24-2024 Nurse Note Pt's blood work attempted x2 this morning. Pt refusing anymore attempts at this time. [email or web address] [facility] [employer] 09-23-2024 Nurse Note Pt took 3 yellow colored rings off. This RN found them on the floor next to her bed. Placed in specimen cup with pt label on pt's bedside table. [employer] [employer] 09-23-2024 History and physical note Attending History and Physical Admit Date: 09/23/2024 PCP: Ria Longoria MD CHIEF COMPLAINT: FALL Reason for Admission: History Obtained From: pt and ER physician HISTORY OF PRESENT ILLNESS: IVAN is a 74 y.o. female with past medical history below who presents with chief complaint listed above. Pt had a witnessed mechanical fall at [facility], has a bruise on forehead. Pt reports [...] C (98.6 F) Resp 18 Ht 5' 7 (1.702 m) Wt 180 lb (81.6 kg) [...] ANIONGAP 7 LIVER PROFILE:No results for input(s): AST, ALT, BILITOT, ALKPHOS, PROT in the last 72 hours. No lab exists for component: LABALBU PT/INR: Recent Labs 09/23/24 1048 PROTIME 12.9* INR 1.2* CARDIAC ENZYMES: No results for input(s): TROPONINI in the last 72 hours. Procalcitonin: Lab [...] Full code Inpatient consult to Geriatric Medicine--[facility]; fall OT eval and treat PT eval and treat Initiate Oxygen Therapy Protocol Admit to inpatient Initiate observation status Code status: Full Code Please forward a copy of this H&P to the patient's PCP. Thank you. Electronically signed by Lashon Sullivan MD 09/23/2024 2:57 PM [facility] 09-23-2024 Note Attending History an d Physical Admit Date: 09/23/2024 PCP: Ria Longoria MD CHIEF COMPLAINT: FALL Reason for Admission: History Obtained From: pt and ER physician HISTORY OF PRESENT ILLNESS: IVAN is a 74 y.o. female with past medical history below who presents with chief complaint listed above. Pt had a witnessed mechanical fall at [facility], has a bruise on forehead. Pt reports [...] ?C (98.6 ?F) Resp 18 Ht 5' 7 (1.702 m) Wt 180 lb (81.6 kg) [...] ANIONGAP 7 LIVER PROFILE:No results for input(s): AST, ALT, BILITOT, ALKPHOS, PROT in the last 72 hours. No lab exists for component: LABALBU PT/INR: Recent Labs 09/23/24 1048 PROTIME 12.9* INR 1.2* CARDIAC ENZYMES: No results for input(s): TROPONINI in the last 72 hours. Procalcitonin: Lab [...] CBC auto differ (more content not included)... [facility] 09-23-2024 Note Attending History an d Physical Admit Date: 09/23/2024 PCP: Ria Longoria MD CHIEF COMPLAINT: FALL Reason for Admission: History Obtained From: pt and ER physician HISTORY OF PRESENT ILLNESS: IVAN is a 74 y.o. female with past medical history below who presents with chief complaint listed above. Pt had a witnessed mechanical fall at [facility], has a bruise on forehead. Pt reports [...] ?C (98.6 ?F) Resp 18 Ht 5' 7 (1.702 m) Wt 180 lb (81.6 kg) [...] ANIONGAP 7 LIVER PROFILE:No results for input(s): AST, ALT, BILITOT, ALKPHOS, PROT in the last 72 hours. No lab exists for component: LABALBU PT/INR: Recent Labs 09/23/24 1048 PROTIME 12.9* INR 1.2* CARDIAC ENZYMES: No results for input(s): TROPONINI in the last 72 hours. Procalcitonin: Lab [...] CBC auto differ (more content not included)... [facility] 09-23-2024 History and physical note Attending History and Physical Admit Date: 09/23/2024 PCP: Ria Longoria MD CHIEF COMPLAINT: FALL Reason for Admission: History Obtained From: pt and ER physician HISTORY OF PRESENT ILLNESS: IVAN is a 74 y.o. female with past medical history below who presents with chief complaint listed above. Pt had a witnessed mechanical fall at [facility], has a bruise on forehead. Pt reports [...] C (98.6 F) Resp 18 Ht 5' 7 (1.702 m) Wt 180 lb (81.6 kg) [...] ANIONGAP 7 LIVER PROFILE:No results for input(s): AST, ALT, BILITOT, ALKPHOS, PROT in the last 72 hours. No lab exists for component: LABALBU PT/INR: Recent Labs 09/23/24 1048 PROTIME 12.9* INR 1.2* CARDIAC ENZYMES: No results for input(s): TROPONINI in the last 72 hours. Procalcitonin: Lab [...] Full code Inpatient consult to Geriatric Medicine--[facility]; fall OT eval and treat PT eval and treat Initiate Oxygen Therapy Protocol Admit to inpatient Initiate observation status Code status: Full Code Please forward a copy of this H&P to the patient's PCP. Thank you. Electronically signed by Lashon Sullivan MD 09/23/2024 2:57 PM documented in this encounter [facility] 09-23-2024 Emergency department Note Gave report to SHA Butcher [facility] 09-23-2024 Emergency department Note Gave report to [...] Physically Abused: No Sexually Abused: No SCREENINGS [place] Coma Scale Best Eye Response: Spontaneous Best Verbal Response: Confused Best Motor Response: Follows commands [place] Coma Scale Score: 14 PHYSICAL EXAM ED [...] Detected (*) Narrative: Methodology: Multiplex PCR The [employer] BCID panel can detect the following organisms: [...] - Normal ETHANOL IN SER/PLAS <10 Narrative: DRESS CUTTER depression is seen >100 mg/dL. NOTE: This [...] equal to 30 ng/mL Test performed by [employer] [facility] Competitive Immunoassay, measuring Total Vitamin D, not [...] Procedure Abnormality Status --------- ------ Legionella and Streptoco...[[id number]] Normal Final result Urine Hold Cup[[id number]] Please view results for these tests on the individual orders. C. DIFFICILE BY PCR WITH REFLEX TO EIA GASTROINTESTINAL PCR PANEL BLOOD TYPE AND SCREEN GEL ABO Grouping O Antibody Screen NEG Rh Type POS BASIC METABOLIC PANEL WITH MG REFLEX Narrative: The following orders were created for panel order Basic Metabolic Panel w/ Mg Reflex. Procedure Abnormality Status --------- ------ Basic metabolic panel[[id number]] Abnormal Final result Please view results for these tests on the individual orders. CONFIRMATORY ABO/RH ABO Grouping O Rh Type POS COMPREHENSIVE METABOLIC PANEL WITH MG REFLEX Narrative: The following orders were created for panel order Comprehensive Metabolic Panel w/ Mg Reflex. Procedure Abnormality Status --------- ------ Comprehensive metabolic ...[[id number]] Abnormal Final result Please view results for [...] sodium chloride 0.9 % 250 mL IVPB (ADD-[facility]) (0 mg IntraVENous Stopped 09/23/24 1356) sodium [...] for clarification.) Muna Edmonds MD Acute Care [facility] Muna Edmonds MD 09/23/24 1507 Muna Edmonds MD 09/23/24 1507 documented in this encounter [facility] 09-23-2024 Physician Emergency department Note EMERGENCY DEPARTMENT [...] Socioeconomic History Marital status: Social D[employer] of [employer] Intimate Partner Violence: Not At Risk (09/23/2024) Humiliation, Afraid, Rape, and Kick questionnaire Fear of Current or Ex-Partner: No Emotionally Abused: No Physically Abused: No Sexually Abused: No SCREENINGS [place] Coma Scale Best Eye Response: Spontaneous Best Verbal Response: Confused Best Motor Response: Follows commands [place] Coma Scale Score: 14 PHYSICAL EXAM ED [...] Detected (*) Narrative: Methodology: Multiplex PCR The [employer] panel can detect the following organisms: E. [...] - Normal ETHANOL IN SER/PLAS <10 Narrative: DRESS CUTTER depression is seen >100 mg/dL. NOTE: This [...] equal to 30 ng/mL Test performed by [employer] [facility] Competitive Immunoassay, measuring Total Vitamin D, not [...] Procedure Abnormality Status --------- ------ Legionella and Streptoco...[[id number]] Normal Final result Urine Hold Cup[[id number]] Please view results for these tests on the individual orders. C. DIFFICILE BY PCR WITH REFLEX TO EIA GASTROINTESTINAL PCR PANEL BLOOD TYPE AND SCREEN GEL ABO Grouping O Antibody Screen NEG Rh Type POS BASIC METABOLIC PANEL WITH MG REFLEX Narrative: The following orders were created for panel order Basic Metabolic Panel w/ Mg Reflex. Procedure Abnormality Status --------- ------ Basic metabolic panel[[id number]] Abnormal Final result Please view results for these tests on the individual orders. CONFIRMATORY ABO/RH ABO Grouping O Rh Type POS COMPREHENSIVE METABOLIC PANEL WITH MG REFLEX Narrative: The following orders were created for panel order Comprehensive Metabolic Panel w/ Mg Reflex. Procedure Abnormality Status --------- ------ Comprehensive metabolic ...[[id number]] Abnormal Final result Please view results for [...] sodium chloride 0.9 % 250 mL IVPB (ADD-[place]) (0 mg IntraVENous Stopped 09/23/24 1356) sodium [...] Edmonds MD at 09/25/2024 5:57 PM EST [employer] 09-23-2024 Physician Emergency department Note Emergency Department Encounter [facility] EMERGENCY DEPT Patient: Andre Blanca : [...] 09/23/24 1507 Muna Edmonds MD 09/23/24 1507 [employer] Phone: 06-18-2024 Miscellaneous Notes Ok to have Andre come back to discuss next steps with right hip, will discuss MRI. documented in this encounter [facility] 06-18-2024 Progress note Formatting of t his note might be different from the original. Ok to have Andre come back to discuss next steps with right hip, will discuss MRI. [facility] 09-13-2023 History of Presen t illness Narrative Images from the original note were not included. [facility] [address] [place] [address] Dept: [phone] Dept 09/13/2023 Chief Complaint Patient presents with [...] Medical History: Diagnosis Date Acute kidney failure ([facility]) Acute respiratory failure ([facility]) Acute venous embolism and thrombosis of deep vessels of distal lower extremity, unspecified laterality ([facility]) Aftercare following other joint replacement surgery Bipolar 1 disorder ([facility]) Cerebral artery occlusion Cerebral artery occlusion with cerebral infarction ([facility]) Chest pain COPD (chronic obstructive pulmonary disease) ([facility]) COVID-19 Depression Difficulty walking Displaced fracture of acromial process right shoulder squela DVT (deep venous thrombosis) ([facility]) Dysarthria and anarthria Dysphagia, oropharyngeal phase Fibromyalgia [...] 0 min Stress: Stress Concern Present (07/24/2023) [employer] [place] [employer] - Occupational Stress Questionnaire Feeling of Stress : Very much Social Connections: Unknown (07/24/2023) Social Connection and Isolation Panel [NHANES] Frequency of Communication with Friends and Family: Patient declined Frequency of Social Gatherings with Friends and Family: Patient declined Attends Catholic Services: Never Active Member of Clubs or [...] Sumatriptan Nausea And Vomiting Objective: Ht 5' 7 (1.702 m) Wt 180 lb (81.6 kg) [...] 90, IR 30, ER 40, with pain. [facility] exam: positive. +PF/DF/EHL. SILT distally. DP/PT palpable. [...] at 8:35 AM. documented in this encounter [facility] 05-31-2023 History of Presen t illness Narrative [facility] [address] [place] [address] Dept: [phone] Dept 05/31/2023 Chief Complaint Patient presents with Follow-up Rt TKA 01.12.2023 Subjective: Andre is approximately 4 month(s) out [...] Neurological: Negative for weakness. Objective: Ht 5' 7 (1.702 m) Wt 180 lb (81.6 kg) [...] 30, ER 40, with pain. [facility] exam: positive. +PF/DF/EHL. SILT distally. DP/PT [...] at 1:22 PM. documented in this encounter [facility] 02-08-2023 History of Presen t illness Narrative [facility] [address] [facility] [address] Dept: [phone] Dept 02/08/2023 Chief Complaint Patient presents with [...] Neurological: Negative for weakness. Objective: Ht 5' 7 (1.702 m) Wt 180 lb (81.6 kg) [...] instructions were reviewed. Electronically signed by Abiola oCnnolly PA-C to Almas Laureano M.D. Hip and Knee Reconstruction [facility] 02/08/2023 at 1:20 PM. documented in this encounter [facility] 01-16-2023 Telephone encounter Note Spoke with Evelyn with Home care and gave advice per Abiola GÓMEZ response. [facility] 01-16-2023 Miscellaneous Notes Spoke with Evelyn with Home care and gave advice per Abiola GÓMEZ response. On and off throughout the entire and as needed for pain and swelling. Can go 20-30 minutes on, then off, every couple hours. Name of Caller: Glenis Contact Phone Number: [phone] Reason for call: Nurse Glenis asking for directives for Pt's Pyle Polar Ice Cube wrap for Pt's knee. Asking how many times per day it needs to be applied, how long, etc. Please call Glenis to advise. Office Name: Dr Laureano documented in this encounter [facility] 01-16-2023 Telephone encounter Note On and off throughout the entire and as needed for pain and swelling. Can go 20-30 minutes on, then off, every couple hours. T [facility] 01-16-2023 Telephone encounter Note Name of Caller: Glenis Contact Phone Number: [phone] Reason for call: Nurse Glenis asking for directives for Pt's Pyle Polar Ice Cube wrap for Pt's knee. Asking how many times per day it needs to be applied, how long, etc. Please call Glenis to advise. Office Name: Dr Laureano T [facility] 01-13-2023 History of Presen t illness Narrative [...] note were not included. Hospitalist Progress Note 01/13/[id number]: Please page me ([phone]) for patient care issues. [id number]: Please page [facility] night Hospitalist for any issues. Subjective: Admit Date: 01/12/2023 PCP: Kianna Izquierdo Room#: B1-163/B1-163 A Interval History: No overnight issues. Denies chest pain, sob, abdominal pain, nausea, vomiting, diarrhea, constipation, fevers, or chills. Adult diet Regular @WVKZ1VYFFXL@ 24HR INTAKE/OUTPUT: Intake/Output Summary (Last 24 hours) [...] MD Division of Hospitalist Medicine Inpatient Medical Services/[facility] PAGER: transOMIC chat Physical Therapy Facility/Department: [facility] Physical Therapy Daily Treatment Note NAME: Andre [...] occlusion, Cerebral artery occlusion with cerebral infarction (HCC), Chest pain, COPD (chronic obstructive pulmonary disease) ([facility]), COVID-19, Depression, Difficulty walking, Displaced fracture of acromial process, DVT (deep venous thrombosis) ([facility]), Dysarthria and anarthria, Dysphagia, oropharyngeal phase, Fibromyalgia, [...] (1 ther act, 1 gait) Seda Bradford, ODELL Occupational Therapy Facility/Department: [facility] Occupational Therapy Treatment NAME: Andre Blanca : 1950 Date of Service: 01/13/2023 Discharge Recommendations: Long-Term Facility Assessment REQUIRES OT FOLLOW-UP: Yes Performance deficits / Impairments: Decreased ADL status, Decreased functional mobility , Decreased endurance, Decreased balance, Decreased strength Assessment: Pt tolerated session poor, limited heavily by pain. Pt completed supine to partial sit at EOB x4 today with Min A. Once pt BLE family nurse EOB and in partial sitting position, pt [...] past medical history of Acute kidney failure ([facility]), Acute respiratory failure ([facility]), Acute venous embolism and thrombosis of deep vessels of distal lower extremity, unspecified laterality ([facility]), Aftercare following other joint replacement surgery, Bipolar 1 disorder ([facility]), Cerebral artery occlusion, Cerebral artery occlusion with cerebral infarction ([facility]), Chest pain, COPD (chronic obstructive pulmonary disease) ([facility]), COVID-19, Depression, Difficulty walking, Displaced fracture of acromial process, DVT (deep venous thrombosis) ([facility]), Dysarthria and anarthria, Dysphagia, oropharyngeal phase, Fibromyalgia, [...] Hip and Knee Reconstruction Service Patient Name: Ander Blanca Date of : 1950 Date: 01/13/23 [...] by: Eleazar Altman MD Physical Therapy Facility/Department: [facility] Physical Therapy Initial Evaluation NAME: Andre [...] past medical history of Acute kidney failure ([facility]), Acute respiratory failure ([facility]), Acute venous embolism and thrombosis of deep vessels of distal lower extremity, unspecified laterality ([facility]), Aftercare following other joint replacement surgery, Bipolar 1 disorder ([facility]), Cerebral artery occlusion, Cerebral artery occlusion with cerebral infarction ([facility]), Chest pain, COPD (chronic obstructive pulmonary disease) ([facility]), COVID-19, Depression, Difficulty walking, Displaced fracture of acromial process, DVT (deep venous thrombosis) ([facility]), Dysarthria and anarthria, Dysphagia, oropharyngeal phase, Fibromyalgia, [...] Device: rollator Transfer Assistance: Needs assistance Active Tread Builder: No Additional Comments: 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 Objective Observation/Palpation Posture: Fair Observation: sx [...] 1950 Date of Service: 01/12/2023 Discharge Recommendations: Long-Term Facility Assessment REQUIRES OT FOLLOW-UP: Yes Performance deficits / Impairments: Decreased ADL status, Decreased functional mobility , Decreased endurance, Decreased balance, Decreased strength Assessment: Pt admitted to [facility] on 01/12 for an elective R TKA with Dr. Laureano. Pt is now WBAT with no forced flexion precautions. 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 Pt reports supervision-SBA for mobility and [...] past medical history of Acute kidney failure ([facility]), Acute respiratory failure ([facility]), Acute venous embolism and thrombosis of deep vessels of distal lower extremity, unspecified laterality ([facility]), Aftercare following other joint replacement surgery, Bipolar 1 disorder ([facility]), Cerebral artery occlusion, Cerebral artery occlusion with cerebral infarction ([facility]), Chest pain, COPD (chronic obstructive pulmonary disease) ([facility]), COVID-19, Depression, Difficulty walking, Displaced fracture of acromial process, DVT (deep venous thrombosis) ([facility]), Dysarthria and anarthria, Dysphagia, oropharyngeal phase, Fibromyalgia, [...] Device: rollator Transfer Assistance: Needs assistance Active Tread Builder: No Additional Comments: 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 Objective Gross Assessment: Yes AROM: Within [...] Daily Activity Raw Score: 19 ADL Inpatient [facility] G-Code Modifier: CK Goals Encounter Problems Encounter [...] Jennifer Hernandez OT documented in this encounter [facility] 01-13-2023 Note Formatting of this n ote might be different from the original. Discharge med list and MAR information transmitted to return back to [facility] via [facility] per TCC request. [facility] 01-13-2023 Note Formatting of this n ote might be different from the original. Discharge med list and MAR information transmitted to return back to [facility] via [facility] per TCC request. [facility] 01-13-2023 Miscellaneous Notes Discharge med list and MAR information transmitted to return back to [facility] via [facility] per TCC request. Transportation arranged through [facility] by cot set for 1 pm. Notified RN and TCC of this via transOMIC secure chat. SW remains available if any other needs or concerns arise. Sent updated notes to [facility] via [facility] per TCC request. Await review and response regarding ability to accept. TCC notified. S/p R TKA PT rec return to [facility] with PT and OT rec SNF. Pt is fci resident at [facility], can return once medically stable. 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 Response from facility: [facility] Alert: YES response from [facility] re: Referral [id number] for patient in [id number]: Yes, willing to accept patient LTC , she is currently on a bed hold I will get a Skilled Auth for her to return.... but will not delay her return... Referral placed to return back to [facility] via [facility] per TCC [...] via standard resection. COMORBIDITIES: Acute kidney failure ([facility]) Acute respiratory failure ([facility]) Acute venous embolism and thrombosis of deep vessels of distal lower extremity, unspecified laterality ([facility]) Aftercare following other joint replacement surgery Bipolar 1 disorder ([facility]) Cerebral artery occlusion Cerebral artery occlusion with cerebral infarction ([facility]) Chest pain COPD (chronic obstructive pulmonary disease) ([facility]) COVID-19 Depression Difficulty walking Displaced fracture of acromial process right shoulder squela DVT (deep venous thrombosis) ([facility]) Dysarthria and anarthria Dysphagia, oropharyngeal phase Fibromyalgia [...] seen and thoroughly evaluated by a perioperative medical collector preoperatively and was optimized for surgical intervention. [...] the rotation dialed in appropriately by visualizing [place]'s line. Alignment holes drilled. The femoral four-in-one [...] were then assessed for symmetry with gap template checker blocks, in both flexion and extension, [...] the recovery room. documented in this encounter [facility] 01-13-2023 Note Formatting of this n ote might be different from the original. Transportation arranged through [facility] by cot set for 1 pm. Notified RN and TCC of this via sendwithus chat. SW remains available if any other needs or concerns arise. [facility] 01-13-2023 Note Formatting of this n ote might be different from the original. Transportation arranged through [facility] by cot set for 1 pm. Notified RN and TCC of this via [employer]. SW remains available if any other needs or concerns arise. [facility] 01-13-2023 Nurse Note Ambit pain pump discontinued per Anesthesia. Exparel block placed per anesthesia for better pain control. Pt tolerated procedure well. [facility] 01-13-2023 Nurse Note Ambit pain pump discontinued per Anesthesia. Exparel block placed per anesthesia for better pain control. Pt tolerated procedure well. POD #1 RTKA Patient resting in bed. She states pain has been intense. She is planning on returning to [facility] when able. She normally ambulates with a rollator at facility. Denies any questions at this time. documented in this encounter [facility] 01-13-2023 Nurse Note POD #1 RTKA Patient resting in bed. She states pain has been intense. She is planning on returning to [facility] when able. She normally ambulates with a rollator at facility. Denies any questions at this time. [facility] 01-13-2023 Note Formatting of this n ote might be different from the original. [facility]. Await review and response regarding ability to accept. TCC notified. [facility] 01-13-2023 Note Formatting of this n ote might be different from the original. [facility]. Await review and response regarding ability to accept. TCC notified. [facility] 01-13-2023 Note Formatting of this n ote might be different from the original. S/p R TKA [facility] and [facility]. 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 T [facility] 01-13-2023 Note Formatting of this n ote might be different from the original. S/p R TKA PT rec return to ECF with PT and OT rec SNF. Pt is fci resident at [facility], can return once medically stable. T [facility] 01-13-2023 Plan of care note Problem: Neurosensory [...] Free from fall injury Outcome: Progressing T [facility] 01-12-2023 Consult note Formatting of th is [...] Acute kidney failure (HCC) Acute respiratory failure ([facility]) Acute venous embolism and thrombosis of deep vessels of distal lower extremity, unspecified laterality ([facility]) Aftercare following other joint replacement surgery Bipolar 1 disorder ([facility]) Cerebral artery occlusion Cerebral artery occlusion with cerebral infarction ([facility]) Chest pain COPD (chronic obstructive pulmonary disease) ([facility]) COVID-19 Depression Difficulty walking Displaced fracture of acromial process right shoulder squela DVT (deep venous thrombosis) ([facility]) Dysarthria and anarthria Dysphagia, oropharyngeal phase Fibromyalgia [...] as needed. cholecalciferol (Vitamin D-3) 1.25 MG (49928 UT) capsule Take by mouth. clopidogrel (Plavix) 75 MG tablet Take 75 mg by mouth in the morning. ergocalciferol (Vitamin D-2) 1.25 MG (16798 UT) capsule Take 50,000 Units by mouth [...] patient's PCP. Thank you. Electronically signed by @ABRILDNR@ on @TDNR@ at @NOWNR@ [facility] 01-12-2023 Consult note Formatting of th is [...] vessels of distal lower extremity, unspecified laterality ([facility]) Aftercare following other joint replacement surgery Bipolar 1 disorder ([facility]) Cerebral artery occlusion Cerebral artery occlusion with cerebral infarction ([facility]) Chest pain COPD (chronic obstructive pulmonary disease) ([facility]) COVID-19 Depression Difficulty walking Displaced fracture of acromial process right shoulder squela DVT (deep venous thrombosis) ([facility]) Dysarthria and anarthria Dysphagia, oropharyngeal phase Fibromyalgia [...] as needed. cholecalciferol (Vitamin D-3) 1.25 MG (90614 UT) capsule Take by mouth. clopidogrel (Plavix) 75 MG tablet Take 75 mg by mouth in the morning. ergocalciferol (Vitamin D-2) 1.25 MG (19139 UT) capsule Take 50,000 Units by mouth [...] @TDNR@ at @NOWNR@ documented in this encounter [facility] 01-12-2023 Note Formatting of this n ote is different from the original. Addendum created 01/12/23 1327 by Delia Uribe APRN - BISTRO SERVER Child order released for a procedure order, Clinical Note Signed, Intraprocedure Blocks edited, Orders acknowledged in Narrator, SmartForm saved [facility] 01-12-2023 Miscellaneous Notes Addendum created 01/12/23 1327 by FREDERICK Copeland CRNA Child order released for a procedure order, Clinical Note Signed, Intraprocedure Blocks edited, Orders acknowledged in Narrator, SmartForm saved Patient: Andre Blanca Procedure Summary Date: 01/12/23 Room / Location: [address] Operating Room Anesthesia Start: 1051 Anesthesia [...] has been met. documented in this encounter [facility] 01-12-2023 Anesthesiology procedure note Associated Order(s): Peripheral Block Peripheral Block Time Out: 01/12/2023 1:09 PM Patient location during procedure: post-op Start time: 01/12/2023 1:09 PM End time: 01/12/2023 1:22 PM Reason for block: at surgeon's request and post-op pain management Staffing Performed: GILLIAN Resident/BISTRO SERVER: FREDERICK Copeland CRNA Preanesthetic Checklist Completed: patient identified, IV checked, site marked, risks and benefits discussed, surgical consent, monitors and equipment checked, pre-op evaluation and timeout performed Region: Lower Extremities Primary: Adductor Canal Peripheral Block Patient position: supine Prep: ChloraPrep Patient monitoring: heart rate, library monitor, continuous pulse ox and continuous capnometry [...] during injection and Normal resistance with injectionMedications eoeLYCKKncpwg-jcixeqinnku-fdlahnhe ine (TAP) syringe - Injection 30 mL - 01/12/2023 1:09:00 PM [facility] [employer] Work Phone: 01-12-2023 Surgical operatio n note Associated Order(s): Peripheral Block Peripheral Block Time Out: 01/12/2023 1:09 PM Patient location during procedure: post-op Start time: 01/12/2023 1:09 PM End time: 01/12/2023 1:22 PM Reason for block: at surgeon's request and post-op pain management Staffing Performed: GILLIAN Resident/BISTRO SERVER: FREDERICK Copeland CRNA Preanesthetic Checklist Completed: patient identified, IV checked, site marked, risks and benefits discussed, surgical consent, monitors and equipment checked, pre-op evaluation and timeout performed Region: Lower Extremities Primary: Adductor Canal Peripheral Block Patient position: supine Prep: ChloraPrep Patient monitoring: heart rate, library monitor, continuous pulse ox and continuous capnometry [...] during injection and Normal resistance with injectionMedications nteIKAITdigbp-oyntjabeqta-gwvgnnqa ine (TAP) syringe - Injection 30 mL - 01/12/2023 1:09:00 PM Patient: Andre Blanca Procedure Summary Date: 01/12/23 Room / Location: [address] Operating Room Anesthesia Start: 1051 Anesthesia [...] Reason for block: primary anesthetic Staffing Performed: BISTRO SERVER Resident/BISTRO SERVER: FREDERICK Courtney CRNA Preanesthetic Checklist Completed: patient [...] Right Total Knee Arthroplasty (Right: Knee) Location: [address] Operating Room Surgeons: Almas Laureano MD Relevant Problems Anesthesia (+) H/O TIA (transient ischemic attack) and stroke Endo (+) Hypothyroidism Pulmonary (+) COPD (chronic obstructive pulmonary disease) ([facility]) Past Medical History: Past Medical History: No date: Acute kidney failure ([facility]) No date: Acute respiratory failure ([facility]) No date: Acute venous embolism and thrombosis of deep vessels of distal lower extremity, unspecified laterality ([facility]) No date: Aftercare following other joint replacement surgery No date: Bipolar 1 disorder ([facility]) No date: Cerebral artery occlusion No date: Cerebral artery occlusion with cerebral infarction ([facility]) No date: Chest pain No date: COPD (chronic obstructive pulmonary disease) ([facility]) No date: COVID-19 No date: Depression No date: Difficulty walking No date: Displaced fracture of acromial process Comment: right shoulder squela No date: DVT (deep venous thrombosis) ([facility]) No date: Dysarthria and anarthria No date: [...] No significant changes documented in this encounter [facility] 01-12-2023 Note Formatting of this n ote is different from the original. Patient: Andre Blanca Procedure Summary Date: 01/12/23 Room / Location: [address] Operating Room Anesthesia Start: 105 Anesthesia [...] once all PACU criteria has been met. [facility] 01-12-2023 Anesthesiology Postoperative evaluation and management note Patient: Andre Blanca Procedure Summary Date: 01/12/23 Room / Location: [address] Operating Room Anesthesia Start: 1050 Anesthesia [...] opportunity for questions and acknowledgement of understanding. T [facility] 01-12-2023 Procedure anesthe oly Narrative Procedure Name Responsible Anesthesiologist Anesthesia Start Time Anesthesia Stop Time Right Total Knee Arthroplasty (Right: Knee) Michel Zambrano MD 01/12/23 1051 06/01/23 1307 Events Date Time Event Comment 01/12/2023 [...] (Carbocaine) 2 % injectio n 60 mg jbpGJCWFqyrrx-mbcqlnmlane-hiibbmqxqzn (T AP) syringe 30 mL lactated Ringer's [...] Paula Armstrong RN documented in this encounter [id number] Note* Care Coordination - Nikole Peralta RN - 01/12/2023 11:41 AM EDT 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 Response from facility: [facility] Alert: YES response from [facility] re: Referral [id number] for patient in [facility]-4213: Yes, willing to accept patient LTC , she is currently on a bed hold I will get a Skilled Auth for her to return.... but will not delay her return... 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 Response from facility: [facility] Alert: YES response from [facility] re: Referral [id number] for patient in [facility]-4213: Yes, willing to accept patient LTC , she is currently on a bed hold I will get a Skilled Auth for her to return.... but will not delay her return... [id number] Note* Care Coordination - Rivera Vo - 01/12/2023 11:24 AM EDT Referral placed to return back to [facility] via [facility] per TCC request. Await review and response regarding ability to accept. TCC notified. [id number] Note* Care Coordination - Rivera Vo - 01/12/2023 11:24 AM EDT Referral placed to return back to [facility] via [facility] per TCC request. Await review and response regarding ability to accept. TCC notified. [id number] Anesthesiology procedure note* Anesthesia Procedure Notes - FREDERICK Courtney CRNA - 01/12/2023 10:52 AM EDTAssociated Order(s): Spinal Block Spinal Block Time Out: 01/12/2023 10:54 AM Patient location during procedure: OR Start time: 01/12/2023 10:55 AM End time: 01/12/2023 11:02 AM Reason for block: primary anesthetic Staffing Performed: BISTRO SERVER Resident/BISTRO SERVER: FREDERICK Courtney CRNA Preanesthetic Checklist Completed: patient [...] Free flow CSF. No Heme. No Parathesia [id number] Note* Op Note - Almas Laureano MD [...] via standard resection. COMORBIDITIES: Acute kidney failure ([facility]) Acute respiratory failure ([facility]) Acute venous embolism and thrombosis of deep vessels of distal lower extremity, unspecified laterality ([facility]) Aftercare following other joint replacement surgery Bipolar 1 disorder ([facility]) Cerebral artery occlusion Cerebral artery occlusion with cerebral infarction ([facility]) Chest pain COPD (chronic obstructive pulmonary disease) ([facility]) COVID-19 Depression Difficulty walking Displaced fracture of acromial process right shoulder squela DVT (deep venous thrombosis) ([facility]) Dysarthria and anarthria Dysphagia, oropharyngeal phase Fibromyalgia [...] seen and thoroughly evaluated by a perioperative medical collector preoperatively and was optimized for surgical intervention. [...] the rotation dialed in appropriately by visualizing Chris's line. Alignment holes drilled. The femoral four-in-one [...] were then assessed for symmetry with gap template checker blocks, in both flexion and extension, [...] patient was transferred to the recovery room. [facility] [id number] Note* Op Note - Almas Laureano MD [...] via standard resection. COMORBIDITIES: Acute kidney failure ([facility]) Acute respiratory failure ([facility]) Acute venous embolism and thrombosis of deep vessels of distal lower extremity, unspecified laterality ([facility]) Aftercare following other joint replacement surgery Bipolar 1 disorder ([facility]) Cerebral artery occlusion Cerebral artery occlusion with cerebral infarction ([facility]) Chest pain COPD (chronic obstructive pulmonary disease) ([facility]) COVID-19 Depression Difficulty walking Displaced fracture of acromial process right shoulder squela DVT (deep venous thrombosis) ([facility]) Dysarthria and anarthria Dysphagia, oropharyngeal phase Fibromyalgia [...] seen and thoroughly evaluated by a perioperative medical collector preoperatively and was optimized for surgical intervention. [...] the rotation dialed in appropriately by visualizing Chris's line. Alignment holes drilled. The femoral four-in-one [...] were then assessed for symmetry with gap template checker blocks, in both flexion and extension, [...] patient was transferred to the recovery room. [facility] [id number] Anesthesiology Preoperative evaluation and management note* Anesthesia Preprocedure Evaluation - Michel Zambrano MD - 01/12/2023 9:58 AM EDT Patient: Andre Blanca Procedure Information Date/Time: 01/12/231199 Procedure: Right Total Knee Arthroplasty (Right: Knee) Location: [address] Operating Room Surgeons: Almas Laureano MD Relevant Problems Anesthesia (+) H/O TIA (transient ischemic attack) and stroke Endo (+) Hypothyroidism Pulmonary (+) COPD (chronic obstructive pulmonary disease) ([facility]) Past Medical History: Past Medical History: No date: Acute kidney failure ([facility]) No date: Acute respiratory failure ([facility]) No date: Acute venous embolism and thrombosis of deep vessels of distal lower extremity, unspecified laterality ([facility]) No date: Aftercare following other joint replacement surgery No date: Bipolar 1 disorder ([facility]) No date: Cerebral artery occlusion No date: Cerebral artery occlusion with cerebral infarction ([facility]) No date: Chest pain No date: COPD (chronic obstructive pulmonary disease) ([facility]) No date: COVID-19 No date: Depression No date: Difficulty walking No date: Displaced fracture of acromial process Comment: right shoulder squela No date: DVT (deep venous thrombosis) ([facility]) No date: Dysarthria and anarthria No date: [...] to ECG 07/07/2022 00:16:44 No significant changes [employer] Work Phone: 1(703) 396-241706-01-2023 History and physical note* Almas Laureano MD [...] occlusion Cerebral artery occlusion with cerebral infarction ([facility]) Chest pain COPD (chronic obstructive pulmonary disease) ([facility]) COVID-19 Depression Difficulty walking Displaced fracture of acromial process right shoulder squela DVT (deep venous thrombosis) ([facility]) Dysarthria and anarthria Dysphagia, oropharyngeal phase Fibromyalgia [...] Diagnosis: Right knee osteoarthritis Plan Right TKA [employer] Work Phone: 1(266) 182-563006-01-2023 History and physical note* Almas Laureano MD [...] Chest pain COPD (chronic obstructive pulmonary disease) ([facility]) COVID-19 Depression Difficulty walking Displaced fracture of acromial process right shoulder squela DVT (deep venous thrombosis) ([facility]) Dysarthria and anarthria Dysphagia, oropharyngeal phase Fibromyalgia [...] osteoarthritis Plan Right TKA documented in this [facility]05-30-2023 Hospital Discharge instructions* Discharge Instructions* Abiola Connolly PA-C - 01/10/2023 10:33 AM EDT Images from the original note were not included. [facility] OR [address] [place] [id number] Dept: [phone] Dr. Almas Laureano Adult Hip and Knee Reconstruction [phone] Total/Partial Knee Discharge Instruction Physical Therapy Physical [...] is made of hard metal and plastic. [place] will create a slight separation of the [...] are taking narcotic pain medicine such as [place], Percocet, Hydrocodone, Oxycodone. Question: How long will [...] Contact Information Primary Emergency Contact: Giana Blanca [place] Relation: Child Past Surgical History: Past Surgical [...] Near syncope COPD (chronic obstructive pulmonary disease) ([facility]) H/O TIA (transient ischemic attack) and stroke [...] Minimal assistance Toileting Minimal assistance Feeding Independent Visual Effects Editor Independent Med Delivery yes Wound Care Documentation [...] Score: @READMISSIONRISKDETAILS@ Discharging to Facility/ Agency Name: [facility] Address: [address], [place] [address] Hours: Open 24 hours Dialysis Facility (if applicable) Name: Address: Dialysis Schedule: Phone: Fax: Corporate Affairs Manager/Fire Prevention Captain signature: ICIAN SECTION Prognosis: good Condition at Discharge: stable Rehab Potential (if transferring to Rehab): good Recommended Labs or Other Treatments After Discharge: none Physician Certification: I certify the above information and transfer of Andre Blanca is necessary for the continuing treatment of the diagnosis listed and that she requires fdc facility for less than 30 days. Update Admission H&P: No change in H&P PHYSICIAN SIGNATURE: documented in this encounterSMcKitrick HospitalZbticl25-30-8681 Telephone encounter Note* Telephone Encounter - Kwesi Sharpe MA - 08/16/2022 3:46 PM EST Contact for [facility]: [facility]Temurl00-01-4465 Miscellaneous Notes* Telephone Encounter - Kwesi Sharpe MA - 08/16/2022 3:46 PM EST Contact for [facility]: * Telephone Encounter - Agatha Stone [...] has to be present for upcoming appointment. [phone] * Telephone Encounter - Agatha Stone MA [...] 07/12/2022 9:34 AM EST Puma at the [facility] called in requesting an appointment. I [...] will call back. Please call her at [phone]. Appointment not scheduled as I was unsure where to add her on today documented in this [facility]12-01-2022 Telephone encounter Note* Telephone Encounter - Agatha Stone MA - 07/14/2022 10:05 AM EST OK per Dr. Jacobsen. Keep 07/19/ appt [facility]Mmajgh89-12-1587 Telephone encounter Note* Telephone Encounter - Agatha Stone MA - 07/12/2022 3:20 PM EST Called and spoke to Giana. He states he will be out of town that week. He is asking if a family friend Terri who is also director of the nursing facility could come with her? He is agreeable to Terri helping to make medical decisions for his mother. [place] [id number] Telephone encounter Note* Telephone Encounter - Jigna Lechuga - 07/12/2022 10:59 AM EST Please call patient's son and POA Giana back when you get a moment. He is wondering why he has to be present for upcoming appointment. [phone] [place] [id number] Telephone encounter Note* Telephone Encounter - Agatha Stone MA - 07/12/2022 10:03 AM EST Spoke to Puma. Made appt for 07/19 Stressed the importance of needing a family member present at this appointment. Staff member is notsufficient. [place] [id number] Telephone encounter Note* Telephone Encounter - Agatha Stone MA - 07/12/2022 9:48 AM EST She needs an appointment with [facility]. A family member has to be present at this appointment [employer]11-29-2022 Telephone encounter Note* Telephone Encounter - Chioma Flanagan MA - 07/12/2022 9:34 AM EST Puma at the [facility] called in requesting an appointment. I [...] will call back. Please call her at [phone]. Appointment not scheduled as I was unsure where to add her on today [employer]10-23-2022 History of Present illness Narrative* Gerardo Last [...] Units Oral Weekly Shweta Carson APRN - ASW/ASUW TACTICAL AIR CONTROLLER 50,000 Units at 06/03/22 1053 enoxaparin Sodium [...] TID Earl Richardson PA-C 10 mg at 06/04/222118 fludrocortisone (FLORINEF) [...] TID Earl Richardson PA-C 5 mg at 06/04/222121 pantoprazole (PROTONIX) [...] Diagnostic Radiology ACCESSION EXAMDATE/TIME PROCEDURE ORDERING PROVIDER [id number] 05/30/2022 10:17 EDT CR Elbow 3+ Views Left [id number] -CUEVASMARGARET COOK CPT code 95239 Reason For Exam (CR Elbow 3+ Views [...] Diagnostic Radiology ACCESSION EXAMDATE/TIME PROCEDURE ORDERING PROVIDER [id number] 05/30/2022 10:17 EDT CR Femur 2+ Views Left n [id number] -MARGARET CUEVAS CPT code 06512 Reason For Exam (CR Femur 2+ Views [...] Tomography ACCESSION EXAM DATE/TIME PROCEDURE ORDERING PROVIDER [id number] 05/30/2022 16:[address] Head or Brain w/o [id number]-[id number], RADHA Contrast CPT code 30050 Reason For Exam (CT Head or Brain [...] Tomography ACCESSION EXAM DATE/TIME PROCEDURE ORDERING PROVIDER [id number] 05/30/2022 09:[address] Head or Brain w/o 308287-MATPSOXMN CAYLA Contrast CPT code 16298 Reason For Exam (CT Head or Brain [...] Tomography ACCESSION EXAM DATE/TIME PROCEDURE ORDERING PROVIDER [id number] 05/30/2022 09:[address] Spine Cervical w/o 301800 -CAYLA MADRIGAL Contrast CPT code 92132 Reason For Exam (CT Spine Cervical w/o [...] acute process. Report Dictated on Worksta tion: [id number] --- Final --- Dictated: 05/30/2022 10:58 am Dictating Physician: DO MCGUIRE ALFRED Signed Date and Time: 05/30/2022 11:00 am Signed by: DO MCGUIRE ALFRED Transcribed Date and Time: 05/30/2022 10:58 XR Tibia Fibula Bilateral Result Date: 05/30/2022 Patient Name: ANDRE BLANCA Diagnostic Radiology ACCESSION EXAMDATE/TIME PROCEDURE ORDERING PROVIDER [id number] 05/30/2022 19:27 EDT CR Tibia/Fibula 2 Views MD FARAZ, ERLINDA Bilateral CPT code 82844 Reason For Exam (CR Tibia/Fibula 2 Views [...] Diagnostic Radiology ACCESSION EXAMDATE/TIME PROCEDURE ORDERING PROVIDER [id number] 05/30/2022 10:36 EDT CR Chest Portable Cynthia LALIT AVENDAÑO CPT code 33628 Reason For Exam (CR Chest Portable) fall, [...] Diagnostic Radiology ACCESSION EXAMDATE/TIME PROCEDURE ORDERING PROVIDER [id number] 05/30/2022 10:17 EDT CR Shoulder 2+ Views [id number] -MARGARET CUEVAS Left CPT code 24597 Reason For Exam (CR Shoulder 2+ Views [...] Diagnostic Radiology ACCESSION EXAMDATE/TIME PROCEDURE ORDERING PROVIDER [id number] 05/30/2022 10:36 EDT CR Pelvis 1 or 2 Views [id number] -LALIT PICHARDO CPT code 18447 Reason For Exam (CR Pelvis 1 or [...] Hypoxia 06/05/2022 Yes I personally supervised the DOPE MAINTENANCE WORKER/ANALISA in the evaluation and development of a [...] olecranon. Doing well. Anticipate discharge back to [facility] today. Greater than 51% of the >= 25 minute total care time throughout the day (including chart review,care coordination, and ckcm-xm-okjk encounter) was spent discussing/counseling the patient/family regarding the care plan for Andre Blanca. I examined the patient independently and reviewed relevant data myself and may have done so in the context of team rounds. A full chart review was performed. Cayla Madrigal MD Division of Trauma Department of Surgery [facility] Pager: [phone] * Rand Olivarez, PT - 06/04/2022 12:33 PM EDT Physical Therapy Facility/Department: [facility] H6 TELEMETRY Physical Therapy Initial Assessment Name: Andre Blanca : 1950 Date of Service: 06/04/2022 Discharge Recommendations: Subacute/Long-Term Facility PT Equipment Recommendations Equipment Needed: (TBD) [...] cognition Assessment: 71 y.o. female admitted to [facility] for fall, closed fracture of femur [...] Ambulation Assistance: Independent Transfer Assistance: Independent Active Tread Builder: No Additional Comments: pt questionable historian Vision/Hearing [...] -;Fair Standing - Dynamic: Fair;- AM-PAC Score [facility] Inpatient Mobility Raw Score : 8 (06/04/22 123) [facility] Inpatient T-Scale Score : 28.52 (06/04/221232) Mobility Inpatient CMS 0-100% Score: 86.62 (06/04/221232) Mobility Inpatient [facility] G-Code Modifier : CM (06/04/221232) Goals Short [...] Minutes 23 Timed Code Treatment Minutes: (Mod lori, 1 FA) This therapist was wearing an appropriate mask, goggles, and gloves for entire patient encounter. Rand Olivarez PT * Radha Moon APRN - CLOSING MANAGER - 06/04/2022 6:27 AM EDT Images from [...] Units Oral Weekly Shweta Carson APRN - ASW/ASUW TACTICAL AIR CONTROLLER 50,000 Units at 06/03/22 1053 enoxaparin Sodium [...] Daily Earl Dylan, PA-C 0.1 mg at 06/03/22 075 levothyroxine (SYNTHROID) tablet 150 mcg 150 mcg [...] 40 mg 40 mg Oral Daily Earl Dyaln, PA-C 40 mg at 06/03/22754 pregabalin (LYRICA) [...] Diagnostic Radiology ACCESSION EXAMDATE/TIME PROCEDURE ORDERING PROVIDER [id number] 05/30/2022 10:17 EDT CR Elbow 3+ Views Left [id number] -MARGARET CUEVAS CPT code 89195 Reason For Exam (CR Elbow 3+ Views [...] Diagnostic Radiology ACCESSION EXAMDATE/TIME PROCEDURE ORDERING PROVIDER [id number] 05/30/2022 10:17 EDT CR Femur 2+ Views Left n [id number] -MARGARET CUEVAS CPT code 41895 Reason For Exam (CR Femur 2+ Views [...] Tomography ACCESSION EXAM DATE/TIME PROCEDURE ORDERING PROVIDER [id number] 05/30/2022 16:[address] Head or Brain w/o 698189-RUSOIVRADHA MOON Contrast CPT code 71319 Reason For Exam (CT Head or Brain [...] Tomography ACCESSION EXAM DATE/TIME PROCEDURE ORDERING PROVIDER [id number] 05/30/2022 09:[address] Head or Brain w/o [id number]-[id number], LAURA Contrast CPT code 86464 Reason For Exam (CT Head or Brain [...] Tomography ACCESSION EXAM DATE/TIME PROCEDURE ORDERING PROVIDER [id number] 05/30/2022 09:[address] Spine Cervical w/o 169365 -CAYLA MADRIGAL Contrast CPT code 88628 Reason For Exam (CT Spine Cervical w/o [...] acute process. Report Dictated on Worksta tion: [id number] --- Final --- Dictated: 05/30/2022 10:58 am Dictating Physician: DO MCGUIRE ALFRED Signed Date and Time: 05/30/2022 11:00 am Signed by: DO MCGUIRE ALFRED Transcribed Date and Time: 05/30/2022 10:58 XR Tibia Fibula Bilateral Result Date: 05/30/2022 Patient Name: ANDRE BLANCA Diagnostic Radiology ACCESSION EXAMDATE/TIME PROCEDURE ORDERING PROVIDER [id number] 05/30/2022 19:27 EDT CR Tibia/Fibula 2 Views MD FARAZ, ERLINDA Bilateral CPT code 94647 Reason For Exam (CR Tibia/Fibula 2 Views [...] Dictated: 05/30/2022 7:12 pm Dictating Physician: MD FABIOLA ESTEVAN Signed Date and Time: 05/30/2022 7:15 pm Signed by: MD HICKS NICHOLAS Transcribed Date and Time: 05/30/2022 7:12 XR CHEST PORTABLE Result Date: 05/30/2022 Patient Name: ANDRE BLANCA Diagnostic Radiology ACCESSION EXAMDATE/TIME PROCEDURE ORDERING PROVIDER [id number] 05/30/2022 10:36 EDT CR Chest Portable [id number] -LALIT PICHARDO CPT code 62900 Reason For Exam (CR Chest Portable) fall, [...] Diagnostic Radiology ACCESSION EXAMDATE/TIME PROCEDURE ORDERING PROVIDER [id number] 05/30/2022 10:17 EDT CR Shoulder 2+ Views [id number] -MARGARET CUEVAS Left CPT code 36885 Reason For Exam (CR Shoulder 2+ Views [...] Diagnostic Radiology ACCESSION EXAMDATE/TIME PROCEDURE ORDERING PROVIDER [id number] 05/30/2022 10:36 EDT CR Pelvis 1 or 2 Views [id number] -KYLEELALIT CPT code 09257 Reason For Exam (CR Pelvis 1 or [...] PT/OT recommending SNF, anticipate discharge back to [facility] once accepted. Greater than 51% of the >= 25 minute total care time throughout the day (including chart review,care coordination, and bttv-ve-ydwo encounter) was spent discussing/counseling the patient/family regarding the care plan for Andre Blanca. I examined the patient independently and reviewed relevant data myself and may have done so in the context of team rounds. A full chart review was performed. Cayla Madrigal MD Division of Trauma Department of Surgery [facility] Pager: [phone] * Earl Richardson PA-C - 06/03/2022 1:25 [...] weeks -d/c instructions in chart -Please page machine repair person ortho resident with questions/concerns Spoke to patient [...] Orthopedic Surgery * Shweta Carson APRN - ASW/ASUW TACTICAL AIR CONTROLLER - 06/03/2022 11:31 AM EDT Images from the original note were not included. [facility] Inpatient Consult Service Admission Date: [...] for questions over the weekend please page machine repair person provider,Dr. Apodaca Subjective: HPI 71 y.o. year-old female presented from facility ([facility]) for fall. Per review of H&P : [facility], patient reportedly blacked out and woke up on the floor, takes Plavix. CT head was negative for ICH, XR L elbow with mildy displaced and mildy comminuted acute olecranonfracture and XR L femur with acute left femoral neck fracture Ortho surgery consulted: plan for OR for [...] slightly confused- thinks she is currently in [place]. PT eval pending, OT recommending SNF Review [...] (37.2 C) (Temporal) Resp 18 Ht 5' 7 (1.702 m) Wt 195 lb(88.5 kg) SpO2 [...] only- states she thinks she is in [place] at time of visit, remains slightly confused [...] PRN Earl Richardson PA-C 1.25 mg at 06/02/222200 metoclopramide (REGLAN) injection 5 mg 5 mg [...] Earl Dylan, PA-C 5 mg at 06/02/222050 busPIRone (BUSPAR) [...] Result Date: 05/30/2022 [id number] Radiology ACCESSION EXAMDATE/TIME PROCEDURE ORDERING PROVIDER [id number] 05/30/2022 10:17 EDT CR Elbow 3+ Views Left [id number] -CUEVASMARGARET CPT code 06880 Reason For Exam (CR Elbow 3+ Views [...] Diagnostic Radiology ACCESSION EXAMDATE/TIME PROCEDURE ORDERING PROVIDER [id number] 05/30/2022 10:17 EDT CR Femur 2+ Views Left n [id number] -MARGARET CUEVAS CPT code 80667 Reason For Exam (CR Femur 2+ Views [...] Tomography ACCESSION EXAM DATE/TIME PROCEDURE ORDERING PROVIDER [id number] 05/30/2022 16:[address] Head or Brain w/o 759572-[id number], RADHA Contrast CPT code 34177 Reason For Exam (CT Head or Brain [...] Tomography ACCESSION EXAM DATE/TIME PROCEDURE ORDERING PROVIDER [id number] 05/30/2022 09:[address] Head or Brain w/o 338561-QQUOVOAVJ, CAYLA Contrast CPT code 64431 Reason For Exam (CT Head or Brain [...] Result Date: 05/30/2022 [id number] Computed Tomography ACCESSION EXAM DATE/TIME PROCEDURE ORDERING PROVIDER [id number] 05/30/2022 09:[address] Spine Cervical w/o [id number] -CAYLA MADRIGAL Contrast CPT code 95686 Reason For Exam (CT Spine Cervical w/o [...] acute process. Report Dictated on Worksta tion: [id number] --- Final --- Dictated: 05/30/2022 10:58 am Dictating Physician: DO MCGUIRE ALFRED Signed Date and Time: 05/30/2022 11:00 am Signed by: DO MCGUIRE ALFRED Transcribed Date and Time: 05/30/2022 10:58 XR Tibia Fibula Bilateral Result Date: 05/30/2022 [id number] Diagnostic Radiology ACCESSION EXAMDATE/TIME PROCEDURE ORDERING PROVIDER [id number] 05/30/2022 19:27 EDT CR Tibia/Fibula 2 Views MD FARAZ, ERLINDA Bilateral CPT code 15307 Reason For Exam (CR Tibia/Fibula 2 Views [...] Result Date: 05/30/2022 [id number]iology ACCESSION EXAMDATE/TIME PROCEDURE ORDERING PROVIDER [id number] 05/30/2022 10:36 EDT CR Chest Portable [id number] -DAXMALATHILALIT LEON CPT code 59902 Reason For Exam (CR Chest Portable) fall, [...] Diagnostic Radiology ACCESSION EXAMDATE/TIME PROCEDURE ORDERING PROVIDER [id number] 05/30/2022 10:17 EDT CR Shoulder 2+ Views [id number] -MARGARET CUEVAS Left CPT code 07599 Reason For Exam (CR Shoulder 2+ Views [...] Diagnostic Radiology ACCESSION EXAMDATE/TIME PROCEDURE ORDERING PROVIDER [id number] 05/30/2022 10:36 EDT CR Pelvis 1 or 2 Views [id number] -LALIT PICHARDO CPT code 56274 Reason For Exam (CR Pelvis 1 or [...] the day (including chart review,care coordination, and boer-kr-yhpg encounter) was spent discussing/counseling the patient/family regarding the care plan for Andre Blanca. I examined the patient independently and reviewed relevant data myself and may have done so in the context of team rounds. A full chart review was performed. Cayla Madrigal MD Division of Trauma Department of Surgery [facility] Pager: [phone] * Familia Esparza MD - 06/03/2022 6:50 AM EDT Department of Orthopedic Surgery Progress Note SUBJECTIVE: Confused this morning but still able to follow commands. In some pain OBJECTIVE: General: in no acute distress VITALS: BP (!) 119/49 Pulse 85 Temp 99 F (37.2 C) (Temporal) Resp 18 Ht 5' 7 (1.702 m) Wt 195 lb (88.5 kg) [...] from the original note were not included. [facility] Inpatient Consult Service Admission Date: [...] multifactorial: pain, sedating medications, post operative status \ - assess and treat for pain first [...] 71 y.o. year-old female presented from facility ([facility]) for fall. Per review of H&P : [facility], patient reportedly blacked out and woke up on the floor, takes Plavix. CT head was negative for ICH, XR L elbow with mildy displaced and mildy comminuted acute olecranonfracture and XR L femur with acute left femoral neck fracture Ortho surgery consulted: plan for OR for [...] (36.5 C) (Temporal) Resp 16 Ht 5' 7 (1.702 m) Wt 195lb (88.5 kg) SpO2 [...] 06/02/2022 10:29 AM EDT Occupational Therapy Facility/Department: [facility] Occupational Therapy Initial Assessment Name: Andre Blanca : 1950 Date of Service: 06/02/2022 Discharge Recommendations: Subacute/Long-Term Facility This provider wore a mask and [...] Independent (with rollator) Transfer Assistance: Independent Active Tread Builder: No Additional Comments: pt questionable historian Objective [...] RUE AROM : WFL G-Code OutComes Score AM-[facility] Daily Activity Inpatient How much help for putting on and taking off regular lower body clothing?: Total How much help for Bathing?: Total How much help for Toileting?: Total How much help for putting on and taking off regular upper body clothing?: A Lot How much help for taking care of personal grooming?: A Little How much help for eating meals?: None AM-[facility] Inpatient Daily Activity Raw Score: 12 AM-[facility] Inpatient ADL T-Scale Score : 30.6 ADL [...] [facility]. Goals and/or treatment plan was [...] Oral TID CARLOS Lyle-C 200 mg at 06/01/22 2040 venlafaxine (EFFEXOR [...] TID Earl Richardson PA-C 10 mg at 06/01/222038 fludrocortisone (FLORINEF) tablet [...] She is no longer anxious or feeling loopylike yesterday. She is a and o x3. [...] Diagnostic Radiology ACCESSION EXAMDATE/TIME PROCEDURE ORDERING PROVIDER [id number] 05/30/2022 10:17 EDT CR Elbow 3+ Views Left [id number] -MARAGRET CUEVAS CPT code 54556 Reason For Exam (CR Elbow 3+ Views [...] Diagnostic Radiology ACCESSION EXAMDATE/TIME PROCEDURE ORDERING PROVIDER [id number] 05/30/2022 10:17 EDT CR Femur 2+ Views Left n [id number] -MARGARET CUEVAS CPT code 62547 Reason For Exam (CR Femur 2+ Views [...] Tomography ACCESSION EXAM DATE/TIME PROCEDURE ORDERING PROVIDER [id number] 05/30/2022 16:[address] Head or Brain w/o [id number]-IMAUBGRADHA MOON Contrast CPT code 20211 Reason For Exam (CT Head or Brain [...] Result Date: 05/30/2022 [id number] Computed Tomography ACCESSION EXAM DATE/TIME PROCEDURE ORDERING PROVIDER [id number] 05/30/2022 09:[address] Head or Brain w/o [id number]-BWYROGLHY, LAURA Contrast CPT code 71138 Reason For Exam (CT Head or Brain [...] Tomography ACCESSION EXAM DATE/TIME PROCEDURE ORDERING PROVIDER [id number] 05/30/2022 09:[address] Spine Cervical w/o [id number] -CAYLA MADRIGAL Contrast CPT code 26719 Reason For Exam (CT Spine Cervical w/o [...] acute process. Report Dictated on Worksta tion: [id number] --- Final --- Dictated: 05/30/2022 10:58 am Dictating Physician: DO MCGUIRE ALFRED Signed Date and Time: 05/30/2022 11:00 am Signed by: DO MCGUIRE ALFRED Transcribed Date and Time: 05/30/2022 10:58 XR Tibia Fibula Bilateral Result Date: 05/30/2022 Patient Name: ANDRE BLANCA Diagnostic Radiology ACCESSION EXAMDATE/TIME PROCEDURE ORDERING PROVIDER [id number] 05/30/2022 19:27 EDT CR Tibia/Fibula 2 Views MD FARAZ, ERLINDA Bilateral CPT code 82412 Reason For Exam (CR Tibia/Fibula 2 Views [...] Diagnostic Radiology ACCESSION EXAMDATE/TIME PROCEDURE ORDERING PROVIDER [id number] 05/30/2022 10:36 EDT CR Chest Portable Cynthia LALIT AVENDAÑO CPT code 50499 Reason For Exam (CR Chest Portable) fall, [...] Diagnostic Radiology ACCESSION EXAMDATE/TIME PROCEDURE ORDERING PROVIDER [id number] 05/30/2022 10:17 EDT CR Shoulder 2+ Views [id number] -MARGARET CUEVAS Left CPT code 03428 Reason For Exam (CR Shoulder 2+ Views [...] Diagnostic Radiology ACCESSION EXAMDATE/TIME PROCEDURE ORDERING PROVIDER [id number] 05/30/2022 10:36 EDT CR Pelvis 1 or 2 Views [id number] -LALIT PICHARDO CPT code 69693 Reason For Exam (CR Pelvis 1 or [...] deficiency 06/02/2022 Yes I personally supervised the DOPE MAINTENANCE WORKER/ANALISA in the evaluation and development of a [...] the day (including chart review,care coordination, and xwah-mr-ktyu encounter) was spent discussing/counseling the patient/family regarding the care plan for Andre Blanca. I examined the patient independently and reviewed relevant data myself and may have done so in the context of team rounds. A full chart review was performed. Cayla Madrigal MD Division of Trauma Department of Surgery [facility] Pager: [phone] * Delia Barnett MD - 06/02/2022 6:51 AM EDT Department of Orthopedic Surgery Progress Note SUBJECTIVE: no issues overnight, pain controlled. A little confused this morning but able to converse OBJECTIVE: General: in no acute distress VITALS: BP (!) 130/55 Pulse 82 Temp 97.2 F (36.2 C) (Temporal) Resp 18 Ht 5' 7 (1.702 m) Wt 195 lb (88.5 kg) [...] weeks -d/c instructions in chart -Please page machine repair person ortho resident with questions/concerns Delia Barnett MD Orthopaedic Surgery, PGY3 [facility] [phone] * Terri Felton - 06/01/2022 2:46 PM EDT Nutrition rescreen completed. Chart reviewed. Patient diet advanced. Monitor tolerance to diet. Patient to be monitored and followed by the diet radiation protection technician. Dietitian available upon request. TESSIE Smith * Bel Champion RN - 06/01/2022 12:05 PM EDT Report received from Nano DALTON * Ccey Rust OT - 06/01/2022 8:56 AM EDT Occupational Therapy Hold OT eval and treat order received. Pt S/P L hemiarthroplasty on 05/31 but pt returning to surgery today for ORIF L olecranon. Will hold OT eval until after surgery. Cecy Rust OTR/L * Shwtea Carson, DOPE MAINTENANCE WORKER - ASW/ASUW TACTICAL AIR CONTROLLER - 06/01/2022 8:50 AM EDT Images from the original note were not included. [facility] Inpatient Consult Service Admission Date: [...] in this older adult - from facility- [facility]- discussed with geriatric pharmacist, Ladan Mejia- MAR from facility requested for further review, but did have med list. Medication recommendations as below: - Agree with holding dicyclomine as it can further contribute to confusion and falls. Metoclopramide opposes activity of dicyclomine- recommend to decrease dose to 5mg BID. - Venlafaxine XR 37.5mg daily 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 dose restarted - Agree with change to Carbamezapine 200 mg regular release TID for now- awaiting MAR from facilityfor verification of TID dosing. Consider check of carbamazepine level as gait disturbances can occur at high levels Follow-up: 1-2 days Subjective: HPI 71 y.o. year-old female [facility]. Per review of H&P : [facility], patient reportedly blacked out and woke up on the floor, takes Plavix. CT head was negative for ICH, XR L elbow with mildy displaced and mildy comminuted acute olecranonfracture and XR L femur with acute left femoral neck fracture Ortho surgery consulted: plan for OR for [...] early this morning had some documentation of aphasia and seeing spiders on the wall Per [...] (36.1 C) (Temporal) Resp 18 Ht 5' 7 (1.702 m) Wt 195 lb (88.5 kg) [...] eGFR 87.5 >60 mL/min EGFR IF NonAfrican Filipino 75.5 >60 mL/min Calcium 8.7 8.4 - [...] Therapy Pt chart reviewed. Per ortho note OR 06/01 for ORIF left olecranon fracture. Will follow and attempt post-surgery. Rand Olivarez [...] No Subjective: Patient feels like she is going crazy. States she does not feel like herself. [place] dogs barking in the room next door [...] 125/62 -- -- 92 15 99 % 05/31/221955 127/61 98.3 F (36.8 C) Temporal 93 [...] Date 06/01/22 0000 - 06/01/22 2359 Shift 4945-0794 7664-6111 7609-1097 24 Hour Total INTAKE Shift Total(mL/kg) OUTPUT Urine(mL/kg/hr) 500 500 Shift Total(mL/kg) 500(5.7) 500(5.7) Weight (kg) 88.5 88.5 88.5 88.5 Last BM: 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 Diet: NPO for OR PHYSICAL: Physical Exam [...] Diagnostic Radiology ACCESSION EXAMDATE/TIME PROCEDURE ORDERING PROVIDER [id number] 05/30/2022 10:17 EDT CR Elbow 3+ Views Left [id number] -CUEVASDARRIUS COOKLEY CPT code 37272 Reason For Exam (CR Elbow 3+ Views [...] Diagnostic Radiology ACCESSION EXAMDATE/TIME PROCEDURE ORDERING PROVIDER [id number] 05/30/2022 10:17 EDT CR Femur 2+ Views Left n [id number] -CUEVAS MARGARET CPT code 95109 Reason For Exam (CR Femur 2+ Views [...] Result Date: 05/30/2022 [id number] Computed Tomography ACCESSION EXAM DATE/TIME PROCEDURE ORDERING PROVIDER [id number] 05/30/2022 16:[address] Head or Brain w/o 388085-SVNWNMRADHA MOON Contrast CPT code 42608 Reason For Exam (CT Head or Brain [...] Result Date: 05/30/2022 [id number] Computed Tomography ACCESSION EXAM DATE/TIME PROCEDURE ORDERING PROVIDER [id number] 05/30/2022 09:[address] Head or Brain w/o 904701-SHHWBXNSI, CAYLA Contrast CPT code 76716 Reason For Exam (CT Head or Brain [...] Result Date: 05/30/2022 [id number] Computed Tomography ACCESSION EXAM DATE/TIME PROCEDURE ORDERING PROVIDER [id number] 05/30/2022 09:[address] Spine Cervical w/o 071287 -CAYLA MADRIGAL Contrast CPT code 97267 Reason For Exam (CT Spine Cervical w/o [...] acute process. Report Dictated on Worksta tion: [id number] --- Final --- Dictated: 05/30/2022 10:58 am Dictating Physician: DO MCGUIRE ALFRED Signed Date and Time: 05/30/2022 11:00 am Signed by: DO MCGUIRE ALFRED Transcribed Date and Time: 05/30/2022 10:58 XR Tibia Fibula Bilateral Result Date: 05/30/2022 Patient Name: ANDRE BLANCA Diagnostic Radiology ACCESSION EXAMDATE/TIME PROCEDURE ORDERING PROVIDER [id number] 05/30/2022 19:27 EDT CR Tibia/Fibula 2 Views MD FARAZ, ERLINDA Bilateral CPT code 47024 Reason For Exam (CR Tibia/Fibula 2 Views [...] Diagnostic Radiology ACCESSION EXAMDATE/TIME PROCEDURE ORDERING PROVIDER [id number] 05/30/2022 10:36 EDT CR Chest Portable LALIT RECIO CPT code 15288 Reason For Exam (CR Chest Portable) fall, [...] Diagnostic Radiology ACCESSION EXAMDATE/TIME PROCEDURE ORDERING PROVIDER [id number] 05/30/2022 10:17 EDT CR Shoulder 2+ Views [id number] -MARGARET CUEVAS Left CPT code 81350 Reason For Exam (CR Shoulder 2+ Views [...] Diagnostic Radiology ACCESSION EXAMDATE/TIME PROCEDURE ORDERING PROVIDER [id number] 05/30/2022 10:36 EDT CR Pelvis 1 or 2 Views [id number] -LALIT PICHARDO CPT code 67065 Reason For Exam (CR Pelvis 1 or [...] the day (including chart review,care coordination, and fzgv-vi-pdwe encounter) was spent discussing/counseling the patient/family regarding the care plan for Andre Blanca. I examined the patient independently and reviewed relevant data myself and may have done so in the context of team rounds. A full chart review was performed. Cayla Madrigal MD Division of Trauma Department of Surgery [facility] Pager: [phone] * Gillian Sykes MD - 06/01/2022 5:56 [...] (36.1 C) (Temporal) Resp 18 Ht 5' 7 (1.702 m) Wt 195 lb (88.5 kg) [...] assessments PT/OT Ortho to follow, please page machine repair person resident with questions/concerns Gillian Syeks MD Orthopaedic Surgery, PGY-3 * Urvashi Garza [...] to anesthesia. Ordered labs, lab drawn at [id number]. Noticed expressive aphasia. Provider notified again . [...] floor, however was not oriented, repeatedly saying doctor and not following commands (11:00pm). Patient was [...] (36 C) (Temporal) Resp 16 Ht 5' 7 (1.702 m) Wt 195 lb (88.5 kg) [...] management per medicine -Ortho to follow, page machine repair person resident with questions/concerns Gillian Sykes MD Orthopaedic [...] mg 500 mg Oral TID Radha Moon DOPE MAINTENANCE WORKER - CLOSING MANAGER lactated ringers infusion IntraVENous Continuous Radha Moon APRN - CLOSING MANAGER sodium chloride flush 0.9 % injection 5-40 mL 5-40 mL IntraVENous 2 times per day Radha Moon APRN - CLOSING MANAGER 10 mL at 05/30/222110 sodium chloride flush 0.9 % injection 5-40 mL 5-40 mL IntraVENous PRN Radha Moon DOPE MAINTENANCE WORKER - CLOSING MANAGER 0.9 % sodium chloride infusion IntraVENous PRN Radha Moon DOPE MAINTENANCE WORKER - CLOSING MANAGER ondansetron (ZOFRAN-ODT) disintegrating tablet 4 mg 4 mg Oral Q8H PRN Radha Moon APRN - CLOSING MANAGER Or ondansetron (ZOFRAN) injection 4 mg 4 mg IntraVENous Q6H PRN Radha Moon APRN - CLOSING MANAGER 4 mg at 05/30/22 1127 polyethylene glycol (GLYCOLAX) packet 17 g 17 g Oral Daily Radha Moon DOPE MAINTENANCE WORKER - CLOSING MANAGER 17 g at 05/30/22 1508 acetaminophen (TYLENOL) tablet 1,000 mg 1,000 mg Oral 3 times per day Radha Moon APRN - CLOSING MANAGER 1,000 mg at 05/31/22 0537 oxyCODONE (ROXICODONE) immediate release tablet 2.5 mg 2.5 mg Oral Q4H PRN Radha Moon DOPE MAINTENANCE WORKER - CLOSING MANAGER Or oxyCODONE (ROXICODONE) immediate release tablet 5 mg 5 mg Oral Q4H PRN Radha Moon, DOPE MAINTENANCE WORKER - CLOSING MANAGER 5 mg at 05/31/22 0537 HYDROmorphone (DILAUDID) injection 0.25 mg 0.25 mg IntraVENous Q3H PRN Radha Moon DOPE MAINTENANCE WORKER - CLOSING MANAGER Or HYDROmorphone (DILAUDID) injection 0.5 mg 0.5 mg IntraVENous Q3H PRN Radha Moon, DOPE MAINTENANCE WORKER - CLOSING MANAGER 0.5 mg at 05/31/22 0255 senna (SENOKOT) tablet 8.6 mg 1 tablet Oral Daily PRN Radha Moon DOPE MAINTENANCE WORKER - CLOSING MANAGER bisacodyl (DULCOLAX) EC tablet 5 mg 5 mg Oral Daily Radha Moon, DOPE MAINTENANCE WORKER - CLOSING MANAGER 5 mg at 05/30/222108 busPIRone (BUSPAR) tablet 10 mg 10 mg Oral TID Radha Moon, DOPE MAINTENANCE WORKER - CLOSING MANAGER 10 mg at 05/30/222108 carBAMazepine (CARBATROL) extended release capsule 200 mg 200 mg Oral BID Radha Moon, DOPE MAINTENANCE WORKER - CLOSING MANAGER 200 mg at 05/30/222109 fludrocortisone (FLORINEF) tablet 0.1 mg 0.1 mg Oral Daily Radha Moon, DOPE MAINTENANCE WORKER - CLOSING MANAGER 0.1 mg at 05/30/22 150 levothyroxine (SYNTHROID) tablet 150 mcg 150 mcg Oral Daily Radha Moon, DOPE MAINTENANCE WORKER - CLOSING MANAGER 150 mcg at 05/30/22 150 melatonin tablet 5 mg 5 mg Oral Daily Radha Moon, DOPE MAINTENANCE WORKER - CLOSING MANAGER midodrine (PROAMATINE) tablet 5 mg 5 mg Oral TID Radha Moon DOPE MAINTENANCE WORKER - CLOSING MANAGER 5 mg at 05/30/222108 pantoprazole (PROTONIX) tablet 40 mg 40 mg Oral BID Radha Moon, DOPE MAINTENANCE WORKER - CLOSING MANAGER 40 mg at 05/30/222108 pravastatin (PRAVACHOL) tablet 40 mg 40 mg Oral Daily Radha Moon, DOPE MAINTENANCE WORKER - CLOSING MANAGER 40 mg at 05/30/22 1507 pregabalin (LYRICA) capsule 150 mg 150 mg Oral BID Radha Moon, DOPE MAINTENANCE WORKER - CLOSING MANAGER 150 mg at 05/30/222108 risperiDONE (RISPERDAL) tablet 0.5 mg 0.5 mg Oral BID Radha Moon, DOPE MAINTENANCE WORKER - CLOSING MANAGER 0.5 mg at 05/30/222110 traZODone (DESYREL) tablet 50 mg 50 mg Oral Nightly Radha Moon, DOPE MAINTENANCE WORKER - CLOSING MANAGER 50 mg at 05/30/222108 venlafaxine (EFFEXOR XR) extended release capsule 75 mg 75 mg Oral Daily Radha Moon, DOPE MAINTENANCE WORKER - CLOSING MANAGER 75 mg at 05/30/22 151 metoclopramide (REGLAN) injection 10 mg 10 mg IntraVENous Q6H Radha Moon, DOPE MAINTENANCE WORKER - CLOSING MANAGER 10 mg at 05/31/22 0255 ARE THERE [...] C) Oral 72 17 94 % 5' 7 (1.702 m) 195 lb (88.5 kg) Last BM: 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 Diet: NPO for OR PHYSICAL: Physical Exam [...] Diagnostic Radiology ACCESSION EXAMDATE/TIME PROCEDURE ORDERING PROVIDER [id number] 05/30/2022 10:17 EDT CR Elbow 3+ Views Left [id number] -MARGARET CUEVAS CPT code 17539 Reason For Exam (CR Elbow 3+ Views [...] Result Date: 05/30/2022 [id number] Diagnostic Radiology ACCESSION EXAMDATE/TIME PROCEDURE ORDERING PROVIDER [id number] 05/30/2022 10:17 EDT CR Femur 2+ Views Left n [id number] -MARGARET CUEVAS CPT code 44166 Reason For Exam (CR Femur 2+ Views [...] Result Date: 05/30/2022 Patient Name: ANDRE BLANCA [facility]#: [id number] Computed Tomography ACCESSION EXAM DATE/TIME PROCEDURE ORDERING PROVIDER [id number] 05/30/2022 16:[address] Head or Brain w/o 436233-BLKMEXRADHA MOON Contrast CPT code 10127 Reason For Exam (CT Head or Brain [...] Tomography ACCESSION EXAM DATE/TIME PROCEDURE ORDERING PROVIDER [id number] 05/30/2022 09:[address] Head or Brain w/o 647517-OMHSDIKAK, LAURA Contrast CPT code 06041 Reason For Exam (CT Head or Brain [...] Tomography ACCESSION EXAM DATE/TIME PROCEDURE ORDERING PROVIDER [id number] 05/30/2022 09:[address] Spine Cervical w/o 851471 -CAYLA MADRIGAL Contrast CPT code 81112 Reason For Exam (CT Spine Cervical w/o [...] acute process. Report Dictated on Worksta tion: [id number] --- Final --- Dictated: 05/30/2022 10:58 am Dictating Physician: DO MCGUIRE ALFRED Signed Date and Time: 05/30/2022 11:00 am Signed by: DO MCGUIRE ALFRED Transcribed Date and Time: 05/30/2022 10:58 XR Tibia Fibula Bilateral Result Date: 05/30/2022 Patient Name: ANDRE BLANCA [facility]#: [id number] Diagnostic Radiology ACCESSION EXAMDATE/TIME PROCEDURE ORDERING PROVIDER [id number] 05/30/2022 19:27 EDT CR Tibia/Fibula 2 Views MD FARAZ, ERLINDA Bilateral CPT code 52276 Reason For Exam (CR Tibia/Fibula 2 Views [...] Result Date: 05/30/2022 [id number] Diagnostic Radiology ACCESSION EXAMDATE/TIME PROCEDURE ORDERING PROVIDER [id number] 05/30/2022 10:36 EDT CR Chest Portable [id number] -LALIT PICHARDO CPT code 70973 Reason For Exam (CR Chest Portable) fall, [...] Result Date: 05/30/2022 [id number] Diagnostic Radiology ACCESSION EXAMDATE/TIME PROCEDURE ORDERING PROVIDER [id number] 05/30/2022 10:17 EDT CR Shoulder 2+ Views [id number] -MARGARET CUEVAS Left CPT code 88763 Reason For Exam (CR Shoulder 2+ Views [...] Diagnostic Radiology ACCESSION EXAMDATE/TIME PROCEDURE ORDERING PROVIDER [id number] 05/30/2022 10:36 EDT CR Pelvis 1 or 2 Views [id number] -DAXMALATHICAROLYNLALIT CPT code 90135 Reason For Exam (CR Pelvis 1 or [...] Polypharmacy 05/31/2022 Yes I personally supervised the DOPE MAINTENANCE WORKER/ANALISA in the evaluation and development of a [...] the day (including chart review,care coordination, and qnnn-om-owkd encounter) was spent discussing/counseling the patient/family regarding the care plan for Andre Blanca. I examined the patient independently and reviewed relevant data myself and may have done so in the context of team rounds. A full chart review was performed. Cayla Madrigal MD Division of Trauma Department of Surgery [facility] Pager: [phone] * FREDERICK Meeks NP - 05/30/2022 12:59 PM EDT At patient bedside. No c-spine tenderness upon palpation, no numbness or tingling in extremities, full ROM without pain. C-collar cleared as per [facility] guidelines. documented in this [facility] Work Phone: 1(454) 709-673310-23-2022 Note Attestation signed by Cayla Madrigal MD [...] MD Division of Trauma Department of Surgery [facility] Pager: [phone] Department of Trauma / Critical Care Discharge [...] she was able to be discharged to [facility] on 06/05 in good condition. Consultations: IP CONSULT TO ORTHOPEDIC SURGERY IP CONSULT TO GERIATRICS IP CONSULT TO PALLIATIVE CARE PCP: Kianna Izquierdo MD Recommended Follow-ups: Schedule an appointment with Dr. Neto Jacobsen MD as soon as possible for a visit in 2 week(s) Specialty: Orthopedic Surgery Post operative follow up [address] [facility] [address] [facility] [address] Schedule an appointment with [facility] as soon as possible for a visit in 2 week(s) Specialty: Trauma Surgery [address] [place] [address] [facility] [id number] Treatments and Procedures with outcomes: Labs: Data [...] 09:38 AM INR 1.0 (more content not included)...[facility]10-23-2022 Hospital course Narrative* Radha Mono, DOPE MAINTENANCE WORKER - CLOSING MANAGER - 06/05/2022 12:05 PM EDT Images from [...] she was able to be discharged to [facility] on 06/05 in good condition. Consultations: IP CONSULT TO ORTHOPEDIC SURGERY IP CONSULT TO GERIATRICS IP CONSULT TO PALLIATIVE CARE PCP: Kianna Izquierdo MD Recommended Follow-ups: Schedule an appointment with Dr. Neto Jacobsen MD as soon as possible for a visit in 2 week(s) Specialty: Orthopedic Surgery Post operative follow up [address] [facility] [address] [facility] [address] Schedule an appointment with [facility] Trauma as soon as possible for a visit in 2 week(s) Specialty: Trauma Surgery [address] [place] [address] [facility] [id number] Treatments and Procedures with outcomes: Labs: Data [...] Diagnostic Radiology ACCESSION EXAMDATE/TIME PROCEDURE ORDERING PROVIDER [id number] 05/30/2022 10:17 EDT CR Elbow 3+ Views Left [id number] -MARGARET CUEVAS CPT code 42829 Reason For Exam (CR Elbow 3+ Views [...] Diagnostic Radiology ACCESSION EXAMDATE/TIME PROCEDURE ORDERING PROVIDER [id number] 05/30/2022 10:17 EDT CR Femur 2+ Views Left n [id number] -MARGARET CUEVAS CPT code 96548 Reason For Exam (CR Femur 2+ Views [...] Diagnostic Radiology ACCESSION EXAMDATE/TIME PROCEDURE ORDERING PROVIDER [id number] 05/31/2022 23:52 EDT CR Foot Complete 3+ [id number], Views Left KORTNIE CPT code 05454 Reason For Exam (CR Foot Complete 3+ [...] Tomography ACCESSION EXAM DATE/TIME PROCEDURE ORDERING PROVIDER [id number] 05/30/2022 16:[address] Head or Brain w/o 894195-RLKMQORADHA MOON Contrast CPT code 78727 Reason For Exam (CT Head or Brain [...] Tomography ACCESSION EXAM DATE/TIME PROCEDURE ORDERING PROVIDER [id number] 05/30/2022 09:[address] Head or Brain w/o 089152-OFDIABYUF, LAURA Contrast CPT code 03289 Reason For Exam (CT Head or Brain [...] CONTRAST Result Date: 05/30/2022 Patient Name: ANDRE BLANCAN: [id number] Computed Tomography ACCESSION EXAM DATE/TIME PROCEDURE ORDERING PROVIDER [id number] 05/30/2022 09:[address] Spine Cervical w/o 109846 -CAYLA MADRIGAL Contrast CPT code 42014 Reason For Exam (CT Spine Cervical w/o [...] acute process. Report Dictated on Worksta tion: [id number] --- Final --- Dictated: 05/30/2022 10:58 am Dictating Physician: DO MCGUIRE ALFRED Signed Date and Time: 05/30/2022 11:00 am Signed by: DO MCGUIRE ALFRED Transcribed Date and Time: 05/30/2022 10:58 XR Tibia Fibula Bilateral Result Date: 05/30/2022 Patient Name: ANDRE BLANCA Diagnostic Radiology ACCESSION EXAMDATE/TIME PROCEDURE ORDERING PROVIDER [id number] 05/30/2022 19:27 EDT CR Tibia/Fibula 2 Views MD FARAZ, ERLINDA Bilateral CPT code 69608 Reason For Exam (CR Tibia/Fibula 2 Views [...] Diagnostic Radiology ACCESSION EXAMDATE/TIME PROCEDURE ORDERING PROVIDER [id number] 05/30/2022 10:36 EDT CR Chest Portable [id number] -LALIT PICHARDO CPT code 95469 Reason For Exam (CR Chest Portable) fall, [...] LOWER EXTREMITY VENOUS BILATERAL Result Date: 06/02/2022 [facility] Lower Extremity Venous Duplex Report Patient [place] : 1950 Study 06/02/20 Name: Andre (71yrs) Date: Age: 71 Account: [id number] Gender: F Loc: 6118 BP: Ordering Physician: Radha Moon Poultry Hatchery Manager: Liliana Mejia T Interpreting Physician: Kwesi Gooden MD Location: [facility] Indications: Lower extremity pain and swelling [...] supine position. Images were obtained using a Sonar.mes vascular ultrasound machine. Venous flow and imaging: [...] Diagnostic Radiology ACCESSION EXAMDATE/TIME PROCEDURE ORDERING PROVIDER [id number] 05/30/2022 10:17 EDT CR Shoulder 2+ Views [id number] -MARGARET CUEVAS Left CPT code 35123 Reason For Exam (CR Shoulder 2+ Views [...] Diagnostic Radiology ACCESSION EXAMDATE/TIME PROCEDURE ORDERING PROVIDER [id number] 05/31/2022 20:59 EDT CR Pelvis 1 or 2 Views [id number] -GILLIAN SYKES CPT code 31542 Reason For Exam (CR Pelvis 1 or [...] Diagnostic Radiology ACCESSION EXAMDATE/TIME PROCEDURE ORDERING PROVIDER [id number] 05/30/2022 10:36 EDT CR Pelvis 1 or 2 Views [id number] -LALIT PICHARDO CPT code 78961 Reason For Exam (CR Pelvis 1 or [...] Outpatient: None Disposition: She was discharged to residential Discharge Medications: She did have significant changes [...] up to 7 days. Vitamin D (Ergocalciferol) 90174 units Caps Take 50,000 Units by mouth [...] Sodium 30 MG/0.3ML injection Vitamin D (Ergocalciferol) 19248 units Caps Discharge Condition: Physical Exam at the time of discharge: Please refer to the Progress note on day of discharge for a detailed [...] MD Division of Trauma Department of Surgery [facility] Pager: [phone] documented in this encounter[facility] Work Phone: 1(565) 414-919910-18-2022 Hospital Discharge instructions* Discharge Instructions* Earl Richardson [...] Izquierdo MD Discharging Nurse: Discharging Hospital Unit/Room#: [id number] Discharging Unit Phone Number: Emergency Contact: No [...] (37.2 C) (Temporal) Resp 18 Ht 5' 7 (1.702 m) Wt 195 lb (88.5 kg) SpO2 95% BMI 30.54 kg/m Last documented pain score (0-10 scale): Pain Level: 8 Last Weight: Wt Readings from Last 1 Encounters: 05/30/22 195 lb (88.5 kg) Mental Status: disoriented, oriented, and forgetfulness IV Access: - None Nursing Mobility/ADLs: Walking Assisted Transfer Assisted Bathing Assisted Dressing Assisted Toileting Dependent Feeding Independent Visual Effects Editor Assisted Med Delivery whole Wound Care Documentation [...] Readmission: 18 Discharging to Facility/ Agency Name: [facility] Address: [address] [place] [address] Fax: Dialysis Facility (if applicable) Name: Address: Dialysis Schedule: Phone: Fax: Corporate Affairs Manager/Fire Prevention Captain signature: PHYSICIAN SECTION Prognosis: Good Condition at Discharge: Stable Rehab Potential (if transferring to Rehab): Good Recommended Labs or Other Treatments After Discharge: None Physician Certification: I certify the above information and transfer of Andre Blanca is necessary for the continuing treatment of the diagnosis listed and that she requires Long-Term Facility for less 30 days. Update Admission H&P: No change in H&P PHYSICIAN SIGNATURE: documented in this [facility] Work Phone: 1(573) 222-635506-08-2022 History of Present illness Narrative* FREDEIRCK Tilley CNP - 01/19/2022 3:30 PM EDT Reviewed recent orthostatic VS and ortho stasis resolved OK for DC to facility Reviewed UA: no UTI Nola Morrison APRN, [facility] Medicine * Derek Grullon OT - 01/19/2022 9:57 AM EDT Occupational Therapy Facility/Department: [address] Occupational Therapy Initial Assessment Name: Andre Blanca : 1950 Date of Service: 01/19/2022 Having reviewed the treatment plan and goals for this patient, I certify that the plan of care below is medically necessary and appropriate. 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 Past Medical History: has a past medical history of Bipolar 1 disorder ([facility]), Cerebral artery occlusion with cerebral infarction ([facility]), COPD (chronic obstructive pulmonary disease) ([facility]), Depression,DVT (deep venous thrombosis) ([facility]), Fibromyalgia, Hyperlipidemia, Hypothyroid, IBS (irritable bowelsyndrome), MDD [...] increased L shoulder pain this date at 9/10 Social/Functional History Social/Functional History Type of Home: [...] Independent (with rollator) Transfer Assistance: Independent Active Tread Builder: No Occupation: Retired Additional Comments: Pt from [...] decreased, non-functional (RUE WFL > +3/5 noted, LUE unable to formally assessd/t NWB) ADL Feeding: [...] Treatment Minutes: 31 Minutes (ADL x2) Derek Grullon, OT * Nola Morrison APRN - ASW/ASUW TACTICAL AIR CONTROLLER - 01/19/2022 9:37 AM EDT Images from the original note were not included. Hospitalist Progress Note 01/19/2022 9:37 AM [phone]: Please page me ([phone]) or perfect serve me for patient care issues. [phone]: Please page IMS night Hospitalist for any issues. Subjective: Admit Date: 01/18/2022 PCP: Kianna Izquierdo MD Room#: 839/1680 Admitting Synopsis: Andre is a 71 y.o. [...] (36.8 C) (Temporal) Resp 17 Ht 5' 7 (1.702 m) Wt 215 lb (97.5 kg) [...] of Hospitalist Medicine Inpatient Medical Services PAGER: [phone] * Familia Esparza MD - 01/19/2022 9:03 AM EDT Images from the original note were not included. [facility] [address] [address] Dept: [phone] Loc: [phone] Orthopedic Progress Note Name: Andre Blanca Date:01/19/2022 [...] 01/19/2022 8:11 AM EDT Physical Therapy Facility/Department: [address] Daily Treatment Note Name: Andre Blanca : 1950 Date of Service: 01/19/2022 Discharge Recommendations: Subacute/Long-Term Facility Patient Diagnosis(es): The encounter diagnosis was [...] of 2 reps B LE AM-PAC Score AM-[facility] Inpatient Mobility Raw Score : 16 (01/19/22755) [...] 01/18/2022 1:48 PM EDT Physical Therapy Facility/Department: [address] Physical Therapy Initial Assessment Name: Andre Blanca : 1950 Date of Service: 01/18/2022 Having reviewed the treatment plan and goals for this patient, I certify that the plan of care below is medically necessary and appropriate. Discharge Recommendations: Subacute/Long-Term Facility PT Equipment Recommendations Equipment Needed: No Other: tbd Patient Diagnosis(es): There were no encounter diagnoses. Past Medical History: has a past medical history of Bipolar 1 disorder (HCC), Cerebral artery occlusion with cerebral infarction (HCC), COPD (chronic obstructive pulmonary disease) ([facility]), Depression,DVT (deep venous thrombosis) (HCC), Fibromyalgia, Hyperlipidemia, [...] for transfers and Ruby for ambulation with BRADLEY LINEBACKER CREWMEMBER. Pt demos decreased balance and decreased safety [...] Independent (with rollator) Transfer Assistance: Independent Active Tread Builder: No Occupation: Retired Additional Comments: Pt from [...] stand with RUE support on EOB and BRADLEY LINEBACKER CREWMEMBER given in static standing. Some unsteadiness in [...] Inpatient Mobility Raw Score : 13 (01/18/22 1346) AM-PAC Inpatient T-Scale Score : 36.74 (06/07/22 1346) Mobility Inpatient CMS 0-100% Score: 64.91 (01/18/221345) Mobility Inpatient CMS G-Code Modifier : CL [...] PM EDT Report to spencer dalton To chula via bed Sleeping at intervals easily arouses No family here to update Pt will call from room to update who she desires documented in this [facility] Work Phone: [phone]) [phone] Hospital Discharge instructions* Discharge Instr - ROSALIO* [...] directive for healthcare treatment Durable power of supervisor specialty plant for health care;Living will -- Adult Children Giana -- Admitting Physician: Kim Muhammad MD PCP: Kianna Izquierdo MD Discharging Nurse: Spencer Brush Discharging Hospital Unit/Room#: [phone] Discharging Unit Emergency Contact: Extended Emergency Contact [...] Problem List Diagnosis Code Bipolar 1 disorder ([facility]) F31.9 COPD (chronic obstructive pulmonary disease) ([facility]) J44.9 H/O TIA (transient ischemic attack) and [...] (36.8 C) (Temporal) Resp 17 Ht 5' 7 (1.702 m) Wt 215 lb (97.5 kg) SpO2 94% BMI 33.67 kg/m Last documented pain score (0-10 scale): Pain Level: 5 Last Weight: Wt Readings from Last 1 Encounters: 01/18/22 215 lb (97.5 kg) Mental Status: oriented and alert IV Access: - None Nursing Mobility/ADLs: Walking Independent Transfer Independent Bathing Assisted Dressing Assisted Toileting Assisted Feeding Independent Visual Effects Editor Independent Med Delivery whole Wound Care Documentation and Therapy: Incision 01/18/22 Shoulder Left (Active) Dressing Status Clean;Dry;Intact 01/19/22 07 Dressing/Treatment Silver dressing;Other (comment);Ice applied/Cryotherapy 01/19/22 07 Incision Assessment Other (Comment) 01/19/22 07 Drainage Amount None 01/19/22 0744 Odor None [...] applicable) Name: Address: Dialysis Schedule: Phone: Fax: Corporate Affairs Manager/Fire Prevention Captain signature: {Esignature:[id number]} PHYSICIAN SECTION Prognosis: {Prognosis:0569182666} Condition at Discharge: { Patient Condition:441076843} Rehab Potential (if transferring to Rehab): {Prognosis:7799114522} Recommended Labs or Other Treatments After Discharge: Physician Certification: I certify the above information and transfer of Andre Blanca is necessary for the continuing treatment of the diagnosis listed and that she requires {Admit to Appropriate Level of Care:87200} for {GREATER/LESS:763453874} 30 days. Update Admission H&P: {CHP DME Changes in HandP:006318920} PHYSICIAN SIGNATURE: {Esignature:089582487} * Additional Instructions* Nurys Leong PA - [...] You can also call (generic nurse) or [phone] and page Acute Pain Service machine repair person for further questions or concerns. [facility] this [facility] Work Phone: 1(150) [phone] NoteDepartment of Trauma / Critical Care Discharge [...] GENDER: F BP: 158 / 74 LOCATION: [facility] PATIENT Inpatient main STATUS: *ORDERING PHYSICIAN: * Ben Cochran MD *READING PHYSICIAN: * Aj, *SECURITIES ANALYST: * Genaro Camacho [facility] INDICATIONS: Recurrent syncope; labile bp. CONCLUSIONS SUMMARY: [...] archived for permanent (more content not included)... [employer] SystemEvaluation note* Diagnosis Chronic left shoulder pain Pain in joint, shoulder region documented in this encounter [facility] Work Phone: Evaluation noteNo assessment information available [facility] Work Phone: Evaluation note* Diagnosis Status post reverse total replacement of left shoulder- Primary Left rotator cuff tear arthropathy documented in this encounter [facility] Work Phone: Evaluation note* Diagnosis Glenohumeral arthritis, left S/P reverse total shoulder arthroplasty, left documented in this encounter [facility] Work Phone: Evaluation note* Diagnosis Left shoulder pain, unspecified chronicity documented in this encounter [facility] Work Phone: Evaluation note* Diagnosis Arthritis of knee, right Unspecified arthropathy, lower leg documented in this encounter [facility] Work Phone: Evaluation note* Diagnosis Closed displaced [...] deficiency Hypoxia Hypoxemia documented in this encounter [facility] Work Phone: Evaluation note* Diagnosis Right knee pain, unspecified chronicity- Primary [facility] Diagnosis Right knee pain, unspecified chronicity [facility]* Diagnosis Primary osteoarthritis of right knee- Primary Primary osteoarthritis of right knee Arthritis of knee, right [facility]* Diagnosis S/P total knee arthroplasty, right- Primary [facility]* Diagnosis Primary osteoarthritis of right knee S/P total knee arthroplasty, right [facility]* Diagnosis S/P total knee arthroplasty, right [facility]* Diagnosis S/P total knee arthroplasty, right [facility]* Diagnosis Status post total right knee replacement Primary osteoarthritis of right knee [facility]* Diagnosis Status post total right knee replacement- Primary Primary osteoarthritis of right knee [facility]* Diagnosis Right hip pain- Primary Pain in joint, pelvic region and thigh [facility]* Diagnosis Right hip pain Pain in joint, pelvic region and thigh documented [facility]* Diagnosis Right hip pain Pain in joint, pelvic region and thigh documented [facility]* Diagnosis Right hip pain Pain in joint, pelvic region and thigh Avascular necrosis of bone of hip, right (HCC) [facility]* Diagnosis Pneumonia due to organism- Primary Pneumonia due to other specified organism Pneumonia due to organism Pneumonia due to other specified organism Fall, initial encounter Neuropathy Mononeuritis of unspecified site Pneumonia due to infectious agent Unspecified infectious and parasitic diseases documented [facility]* Diagnosis Spondylolysis, lumbosacral- Primary Congenital spondylolysis, lumbosacral region Sacroiliac dysfunction Nonallopathic lesion of sacral region, not elsewhere classified Lumbar pain Lumbago documented [facility]* Diagnosis Lumbar pain Lumbago [facility]* Attachments The following attachments cannot be sent through Care Everywhere. * Hip Bursitis Exercises (Rwandan) [facility] for [facility] (narrative)No reason for referral information availableWWright-[facility] Work Phone: Reason for visit Narrative* Imaging (Routine) - Closed Specialty Diagnoses / Procedures Referred By Ksenia cordova Referred To Contact Radiology Diagnoses Right hip pain Avascular necrosis of bone of hip, right (HCC) Procedures MR hip right wo Almas Laureano MD [address] [facility] [address] [place] [address] Phone: tel: fax: Referral ID Status Reason Start Date Expiration Date Visits Re quested Visits Authorized [id number] Closed 01/12/2024 01/11/2025 1 1 [facility] Summary Purpose Family History No Family History Records FoundNo Family History Records FoundNo Family History Records FoundNo Family History Records FoundNo Family History Records FoundNo Family History Records FoundNo Family History Records FoundNo Family History Records FoundNo Family History Records Found Advance Directives No Advanced Directives Records FoundDocuments on File Type Date Recorded Patient Locomotive Switch Operator Expl anation ACP-Advance Directive 11/17/2020 12:00 AM Documents on File Type Date Recorded Patient Locomotive Switch Operator Expl anation ACP-Do Not Resuscitate 01/12/2022 [...] Documents on File Type Date Recorded Patient Locomotive Switch Operator Expl anation ACP-Advance Directive 01/21/2022 9:23 AM ACP-Do Not Resuscitate 01/12/2022 11:50 AM ACP-Advance Directive 12/27/2021 Documents on File Type Date Recorded Patient Locomotive Switch Operator Expl anation ACP-Advance Directive 05/30/2022 Latest Code Status on File Code Status Date Activated Date Inactivated Comments Full Code 05/30/2022 11:06 AM Documents on File Type Date Recorded Patient Locomotive Switch Operator Expl anation Advance Directives and Living Will 01/18/2022 DNR (Do Not Resuscitate) 01/04/2022 Latest Code Status on File Code Status Date Activated Date Inactivated Comments Full Code 07/07/2022 3:47 AM 07/07/2022 6:38 PM Documents on File Type Date Recorded Patient Locomotive Switch Operator Expl anation Advance Directives and Living [...] Documents on File Type Date Recorded Patient Locomotive Switch Operator Expl anation Advance Directives and Livin [...] Documents on File Type Date Recorded Patient Locomotive Switch Operator Expl anation Advance Directives and Livin [...] Documents on File Type Date Recorded Patient Locomotive Switch Operator Expl anation Advance Directives and Living [...] home, initial encounter Radha Moon, FREDERICK - CLOSING MANAGER [address] [place] [address] [facility] Trauma [address] [facility] [address] [place] [address] Referral ID Status Reason Start Date Expiration Date V isits Requested Visits Authorized [id number] Open Specialty Services Required 06/05/2022 06/05/2023 1 1 Scheduling Instructions [facility] Trauma Surgery- Jessika Collins MD [address], [address] [place] [address] Comments The patient can be scheduled with any member of the group, including the provider with the first available appointments. Specialty Diagnoses / Procedures Referred By Contac t Referred To Contact Physical Therapy Diagnoses Status post total right knee replacement Primary osteoarthritis of right knee Procedures CA OFFICE/OUTPATIENT NEW HIGH MDM 60-74 MINUTES Abiola Connolly PA-C [address] [facility] [address] [place] [address] Referral ID Status Reason Start Date Expiration Date Visits Requested Visits Authorized [id number] Pending Review Eval and Treat 3 11/29/2023 99 99 Specialty Diagnoses / Procedures Referred By Contac t Referred To Contact Radiology Diagnoses Right hip pain Procedures MR hip right wo Almas Laureano MD [address] [facility] [address] [place] [address] Referral ID Status Reason Start Date Expiration Date V isits Requested Visits Authorized [id number] Pending Review 09/13/2023 09/12/2024 1 1 Additional Source Comments INFORMATION SOURCE (unrecogn ized section and content) DATE CREATED AUTHOR 08/20/2020 [facility] ([place]) DATE CREATED AUTHOR AUTHOR'S ORGANIZ ATION 11/08/2020 [facility] [place] DATE CREATED AUTHOR AUTHOR'S ORGANIZ ATION 05/25/2022 [...] DATE CREATED AUTHOR AUTHOR'S ORGANIZ ATION 06/26/2025 [facility] Goals (unrecognized section and content) Goals may [...] Date End Da te Ergocalciferol (VITAMIN D) 44677 units CAPS Take 50,000 Units by mouth [...] refused)2037 (Given - Provider: Sawyer Beal RN) 014 (Not Given - Provider: Sawyer Beal RN - Reason: Patient/family refused - Comment: Pt stated previously to please not wake her up if she is sleeping)0813 (Given - Provider: Spencer Brush LPN)131 (Given - Provider: Shelby Vidal RN)1944 (Due) albuterol sulfate HFA (PROVENTIL;VENTOLIN;PROAIR) 108 (90 [...] Santo RCP)131 (Given - Provider: Neville Santo RCP)170 (Due)2100 (Due) busPIRone (BUSPAR) tablet 10 mg 10 mg, Oral, 3 TIMES DAILY, First dose on Mon01/18/22 at 1615, Until Discontinued 1655 (Not Given - Provider: Spencer Brush LPN - Reason: Medication not available)2041 (Given - Provider: Sawyer Beal RN) 0813 (Given - Provider: Spencer Brush LPN)131 (Given - Provider: Shelby Vidal RN)2100 (Due) carBAMazepine (TEGRETOL) tablet 200 mg 200 mg, Oral, 3 TIMES DAILY, First dose on Mon01/18/22 at 1615, Until Discontinued 1655 (Not Given - Provider: Spencer Brush LPN - Reason: Medication not available)2041 (Given - Provider: Sawyer Beal RN) 0813 (Given - Provider: Spencer Brush LPN)131 (Given - Provider: Shelby Vidal RN)2100 (Due) ceFAZolin (ANCEF) 2000 mg in dextrose 4 % 100 mL IVPB (premix) (COMPLETED) 2,000 mg, IntraVENous, CHIEF RADIOLOGIC TECHNOLOGIST TO O.R., 1 dose, On Mon01/18/22 at 0700, Antimicrobial Indications: Surgical Prophylaxis, Administer within 1 hour prior to incision. Recommend to repeat in 3-4 hours after initial dose if still intra-op., Pre-op (day of surgery) 0802 (Given by Other Clinician - Provider: Lacy Gonsalves RN - Comment: tile and mottle supervisor gave in or) ceFAZolin (ANCEF) 2000 mg [...] Brush LPN - Reason: Medication not available) 14 (Given - Provider: Spencer Brush LPN) sodium [...] 2040 (Given - Provider: Sawyer Beal RN) 2099 (Due) venlafaxine (EFFEXOR XR) extended release [...] 2038 (Given - Provider: Sawyer Beal RN) 0013 (Given - Provider: Sawyer Beal RN) metoclopramide [...] D Quinonez, SHA)2005 (Given - Provider: Susan Weeks, SHA) 06 (Given - Provider: Urvashi Garza RN)142 (Given - Provider: Gerardo Last RN)2118 (Given - Provider: Juan Manuel Santos, SHA) 05 (Given - Provider: Juan Manuel Santos RN)1415 (Given - Provider: Gerardo Last RN)2199 (Due) bisacodyl (DULCOLAX) EC tablet 5 mg 5 mg, Oral, DAILY, First dose on Mon05/30/22 at 2200, Until Discontinued, Do not crush or break. 2006 (Given - Provider: Susan Weeks, SHA) 2119 (Given - Provider: Juan Manuel Santos, RN) 2199 (Due) busPIRone (BUSPAR) tablet 10 mg 10 mg, Oral, 3 TIMES DAILY, First dose on Mon05/30/22 at 1400, Until Discontinued 0755 (Given - Provider: Lisha Harrington RN)141 (Given - Provider: Maria D Quinonez, SHA)2005 (Given - Provider: Susan Weeks, RN) 0959 (Given - Provider: Gerardo Last RN)142 (Given - Provider: Gerardo Last RN)2118 (Given - Provider: Juan Manuel Santos RN) 08 (Given - Provider: Gerardo Last RN)141 (Given - Provider: Gerardo Last RN)2100 (Due) carBAMazepine (TEGRETOL) tablet 200 mg 200 mg, Oral, 3 TIMES DAILY, First dose on Mon05/31/22 at 1400, Until Discontinued 0755 (Given - Provider: Lisha Harrington RN)1412 (Given - Provider: Maria D Quinonez RN)2005 (Given - Provider: Susan Weeks, SHA) 0959 (Given - Provider: Gerardo Last RN)142 (Given - Provider: Gerardo Last RN)211 (Given - Provider: Juan Manuel Santos, SHA) 08 (Given - Provider: Gerardo Last RN)141 (Given - Provider: Gerardo Last RN)2100 (Due) enoxaparin Sodium (LOVENOX) injection 30 mg 30 mg, SubCUTAneous, 2 TIMES DAILY, First dose on Mon06/01/22 at 2100, Until Discontinued, Indication of Use: Prophylaxis-DVT/PE 0754 (Given - Provider: Lisha Harrington RN)2005 (Given - Provider: Susan Weeks, SHA) 0959 (Given - Provider: Gerardo Last RN)212 (Given - Provider: Juan Manuel Santos, SHA) 08 (Given - Provider: Gerardo Last, SHA)2100 (Due) fludrocortisone (FLORINEF) tablet 0.1 mg 0.1 mg, Oral, DAILY, First dose on Mon05/30/22 at 1330, Until Discontinued 075 (Given - Provider: Lisha Harrington RN) 0959 (Not Given - Provider: Gerardo Last RN - Reason: Patient/family refused) 08 (Given - Provider: Gerardo Last RN) levothyroxine (SYNTHROID) tablet 150 mcg 150 [...] 2118 (Given - Provider: Juan Manuel Santos, RN) 2099 (Due) methocarbamol (ROBAXIN) tablet 500 [...] D Quinonez RN)2006 (Given - Provider: Susan Weeks, RN) 999 (Given - Provider: Gerardo Last, RN)142 (Given - Provider: Gerardo Last, RN)2121 (Given - Provider: Juan Manuel Santos, RN) 08 (Given - Provider: Gerardo Last, RN)141 (Given - Provider: Gerardo Last, SHA)2099 (Due) pantoprazole (PROTONIX) tablet 40 mg 40 mg, Oral, 2 times daily, First dose on Mon05/30/22 at 1345, Until Discontinued, Do not crush or break. 0754 (Given - Provider: Lisha Harrington RN)2006 (Given - Provider: Susan Weeks RN) 09 (Given - Provider: Gerardo Last, SHA)2118 (Given - Provider: Juan Manuel Santos, RN) [...] dose on Mon05/30/22 at 1345, Until Discontinued 075 (Given - Provider: Lisha Harrington RN)2006 (Given - Provider: Susan Weeks RN) 09 (Given - Provider: Gerardo Last RN)2119 (Given - Provider: Juan Manuel Santos, SHA) 08 (Given - Provider: Gerardo Last RN)2100 (Due) risperiDONE (RISPERDAL) tablet 0.5 mg 0.5 mg, Oral, 2 TIMES DAILY, First dose on Mon05/30/22 at 1330, Until Discontinued 075 (Given - Provider: Lisha Harrington RN)2006 (Given - Provider: Susan Weeks RN) 999 (Given - Provider: Gerardo Last [...] Last RN)212 (Given - Provider: Juan Manuel Santos, SHA) 0814 (Given - Provider: Gerardo Last, RN)2100 (Due) traZODone (DESYREL) tablet 50 mg 50 mg, Oral, NIGHTLY, First dose on Mon05/30/22 at 2100, Until Discontinued 2006 (Given - Provider: Susan Weeks, SHA) 2118 (Given - Provider: Juan Manuel Santos, SHA) 2100 (Due) venlafaxine (EFFEXOR XR) extended release capsule 37.5 mg 37.5 mg, Oral, DAILY, First dose (after last modification) on Mon06/01/22 at 0900, Until Discontinued, Do not crush or break. 0758 (Given - Provider: Lisha Harrington RN) 1037 (Given - Provider: Gerardo Last RN) 0817 (Given - Provider: Gerardo Last, SHA) vitamin D (ERGOCALCIFEROL) capsule 50,000 Units 50,000 [...] SHA)2007 (See Alternative - Provider: Susan Weeks, RN) 0148 (See Alternative - Provider: Donell Singh, RN)0604 (See Alternative - Provider: Urvashi Garza, RN)1008 (See Alternative - Provider: Gerardo Last RN) oxyCODONE (ROXICODONE) immediate release tablet 5 mg(Linked Group 2) 5 mg, Oral, EVERY 4 HOURS PRN, Starting on Mon05/31/22 at 1424, Until Discontinued, Pain Severe (7-10) 0446 (Given - Provider: Walter Mckeon LPN)1412 (Given - Provider: Maria D Quinonez, RN)2006 (Given - Provider: Susan Weeks, RN) 0148 (Given - Provider: Donell Singh, RN)0604 (Given - Provider: Urvashi Garza, SHA)1008 [...] (Given - Provider: Isabel Howe APRN - BISTRO SERVER) ceFAZolin Sodium 2,000 mg in sodium chloride [...] Venous Thromboembolism 0815 (Given - Provider: Marjorie Carrillo RN) famotidine [...] dose, Preprocedure 1030 (Given - Provider: Paula Armstrong RN) fludrocortisone (Florinef) tablet 0.1 mg 0.1 mg, Oral, Daily, First dose on Fariha 01/12/23 at 1700 1700 (Not Given - Provider: Shelby Vidal RN - Reason: Medication not available) 0816 (Given - Provider: Marjorie Ross, RN) levothyroxine (Synthroid, Levoxyl) tablet 150 mcg [...] at 1700 2024 (Given - Provider: Andre Mijares RN) Nozin Nasal Ship Keeper Popswab 2 Swab (COMPLETED) 2 Swab (1 [...] First dose on Fariha 01/12/23 at 1700 2023 (Given - Provider: Andre Mijares RN) 0816 (Given - Provider: Marjorie Carrillo RN) pregabalin (Lyrica) capsule 150 mg 150 mg, Oral, 2 times daily, First dose on Fariha 01/12/23 at 2099 2025 (Given - Provider: Andre Mijares RN) 0816 (Given - Provider: Marjorie Carrillo RN) risperiDONE (RisperDAL) tablet 0.5 mg 0.5 mg, Oral, 2 times daily, First dose on Fariha 01/12/23 at 2099 2025 (Given - Provider: Andre Mijares RN) 0816 (Given - Provider: Marjorie Carrillo RN) ropivacaine (Naropin) 5 MG/ML 15 mL, [...] at 2099 2023 (Given - Provider: Andre Mijares RN) [...] Armstrong RN)1051 (Continued by Anesthesia - Provider: FREDERIKC Courtney CRNA)1306 (Stopped - Provider: FREDERICK Courtney [...] not necessary. 1030 (Given - Provider: Paula Armstrong RN) bisacodyl (Dulcolax) EC tablet 5 mg 5 [...] ordered. 1734 (Given - Provider: Shelby Vidal RN)2158 (Given [...] therapy medications. 1321 (Given - Provider: Chaparro Lujan, SHA)1353 (Given - Provider: Chaparro Lujan RN) ondansetron [...] Vidal RN) 0014 (Given - Provider: Andre Mijares, SHA)0558 (Given - Provider: Andre Mijares RN)1258 (See Alternative - Provider: Jamaal Fenton LPN) oxyCODONE (Roxicodone) immediate release tablet 5 mg(Linked Group 4) 5 mg, Oral, Every 4 hours PRN, moderate pain (4-6), Starting on Fariha 01/12/23 at 1529, Phase II/On Unit 1834 (See Alternative - Provider: Shelby Vidal, RN) 0014 (See Alternative - Provider: Andre Mijares, SHA)0558 (See Alternative - Provider: Andre Mijares, SHA)1258 (Given - Provider: Jamaal Fenton LPN) oxyCODONE [...] irrigation solution (CANCELED) As needed, Starting on Afriha 01/12/23 at 1100, Intraprocedure 1059 (Given - [...] Nieves RN)1337 (Given - Provider: Galina Nieves RN)203 (Given [...] Nieves RN)1316 (Given - Provider: Galina Nieves, RN)2032 (Given - Provider: Jose Roberto Samaniego RN) 0931 (Given - Provider: Galina Nieves RN)1330 (Given - Provider: Galina Nieves RN) cefTRIAXone (Rocephin) 1,000 mg in sodium chloride 0.9 % 50 mL IVPB Mini-Bag Plus (CANCELED) 1,000 mg, IntraVENous, at 100 mL/hr, Administer over 30 Minutes, Every 24 hours, First dose on Mon09/24/24 at 1200, Mini-Bag Plus bag, Suspected Indication (Select all that apply): Pneumonia (CAP) 1205 (New Bag - Provider: Galina Nieves RN)1235 (Stopped - Provider: Galina Nieves RN) 1229 (New Bag - Provider: Galina Nieves, RN)1259 (Stopped - Provider: Galina Nieves, RN) clopidogrel (Plavix) tablet 75 mg 75 mg, Oral, Daily, First dose on Mon09/23/24 at 1700 0858 (Given - Provider: Galina Nieves RN) 0837 (Given - Provider: Galina Nieves RN) 0930 (Given - Provider: Galina Nieves RN) enoxaparin (Lovenox) syringe 40 mg 40 mg, SubCUTAneous, Every 24 hours, First dose on Mon09/23/24 at 1600, Indication of Use: Prophylaxis-DVT/PE 1539 (Given - Provider: Galina Nieves, RN) 1500 (Given - Provider: Galina Nieves, RN) 1600 (Canceled Entry - Provider: Automatic Discharge Provider - Comment: Automatically canceled at discontinue of medication order) fludrocortisone (Florinef) tablet 0.1 mg 0.1 mg, Oral, Daily, First dose on Mon09/23/24 at 1700 0952 (Given - Provider: Galina Nieves RN) 0839 (Given - Provider: Galina Nieves, [...] Matthews RCP) 1003 (Given - Provider: Salome Hodge RRT)1320 (Given - Provider: Salome Hodge RRT) 0000 [...] Galina Nieves RN)2123 (Given - Provider: Anders Shahid RN) 0837 [...] Samaniego, RN) 0931 (Given - Provider: Galina Nieves, RN) senna-docusate sodium (Senokot-S) 8.6-50 MG tablet [...] than 100.4 F (38 C), Starting on 09/23/24 at 1456, Maximum dose of acetaminophen is [...] 6 hours PRN, nausea, vomiting, Starting on 09/23/24 at 1456, 1st Line. Give IV if patient is unable to take orally. If inadequate response within 60 minutes, proceed to next-line agent or contact provider if no further options ordered. 0441 (Given - Provid er: Keron J Bourbon, RN)1013 (See Alternative - Provider: Galina Nieves [...] Status Dates Kianna Izquierdo Attending Provider Active Hardboard Grinder Relationship Specialty Start Date End Date Kianna Izquierdo MD PCP - General Internal Medicine 08/25/20 Hardboard Grinder Relationship Specialty Start Date End Date Kianna Izquierdo MD PCP - General Internal Medicine 08/25/20 Hardboard Grinder Relationship Specialty Start Date End Date Kianna Izquierdo MD PCP - General Internal Medicine 08/25/20 Hardboard Grinder Relationship Specialty Start Date End Date Kianna Izquierdo MD PCP - General Internal Medicine 08/25/20 Hardboard Grinder Relationship Specialty Start Date End Date Kianna Izquierdo MD PCP - General Internal Medicine 08/25/20 Hardboard Grinder Relationship Specialty Start Date End Date Kianna Izquierdo MD [address] [facility] [address] [place] [address] PCP - General Internal Medicine 05/30/22 Hardboard Grinder Relationship Specialty Start Date End Date Kianna Izquierdo [address] [place] [phone] PCP - General 05/30/22 Kianna Izquierdo [address] [place] [phone] 05/30/22 Hardboard Grinder Relationship Specialty Start Date End Date Kianna Izquierdo [address] [place] [phone] PCP - General 05/30/22 Kianna Izquierdo [address] [place] [phone] 05/30/22 Hardboard Grinder Relationship Specialty Start Date End Date Kianna Izquierdo [address] [place] [phone] PCP - General 05/30/22 Kianna Izquierdo [address] [place] [phone] 05/30/22 Aaron Negro RN Nurse Navigator Orthopedic Surgery 12/22/2204/14/23 Hardboard Grinder Relationship Specialty Start Date End Date Kianna Izquierdo [address] [place] [phone] PCP - General 05/30/22 Kianna Izquierdo [address] [place] [phone] 05/30/22 Aaron Negro RN Nurse Navigator Orthopedic Surgery 12/22/2204/14/23 Hardboard Grinder Relationship Specialty Start Date End Date Kianna Izquierdo [address] [place] [phone] PCP - General 05/30/22 Kianna Izquierdo [address] [place] [phone] 05/30/22 Aaron Negro RN Nurse Navigator Orthopedic Surgery 12/22/2204/14/23 Almas Laureano MD [address] [facility] [address] [place] [address] Orthopedic Surgery 01/13/23 04/14/23 Hardboard Grinder Relationship Specialty Start Date End Date Kianna Izquierdo [address] [place] [phone] PCP - General 05/30/22 Kianna Izquierdo [address] [place] [phone] 05/30/22 Aaron Negro RN Nurse Navigator Orthopedic Surgery 12/22/2204/14/23 Almas Laureano MD [address] [facility] [address] [place] [address] Orthopedic Surgery 01/13/23 04/14/23 Hardboard Grinder Relationship Specialty Start Date End Date Kianna Izquierdo [address] [place] [phone] PCP - General 05/30/22 Kianna Izquierdo [address] [place] [phone] 05/30/22 Aaron Negro RN Nurse Navigator Orthopedic Surgery 12/22/2204/14/23 Almas Laureano MD [address] [facility] [address] [place] [address] Orthopedic Surgery 01/13/23 04/14/23 Hardboard Grinder Relationship Specialty Start Date End Date Kianna Izquierdo [address] [place] [phone] PCP - General 05/30/22 Kianna Izquierdo [address] [place] [address] 05/30/22 Aaron Negro, SHA Nurse Navigator Orthopedic Surgery 12/22/2204/14/23 Almas Laureano MD [address] [facility] [address] [place] [address] Orthopedic Surgery 01/13/23 04/14/23 Hardboard Grinder Relationship Specialty Start Date End Date Kianna Izquierdo [address] [place] [phone] PCP - General 05/30/22 Kianna Izquierdo [address] [place] [address] 05/30/22 Aaron Negro, SHA Nurse Navigator Orthopedic Surgery 12/22/2204/14/23 Almas Laureano MD [address] [facility] [address] [place], [place] [address] Orthopedic Surgery 01/13/23 04/14/23 Hardboard Grinder Relationship Specialty Start Date End Date Kianna Izquierdo [address] [place] [phone] PCP - General 05/30/22 Kianna Izquierdo [address] [place] [phone] 05/30/22 Hardboard Grinder Relationship Specialty Start Date End Date Kianna Izquierdo [address] [place] [phone] PCP - General 05/30/22 Kianna Izquierdo [address] [place] [phone] 05/30/22 Hardboard Grinder Relationship Specialty Start Date End Date Kianna Izquierdo [address] [place] [phone] PCP - General 05/30/22 Kianna Izquierdo [address] [place] [phone] 05/30/22 Hardboard Grinder Relationship Specialty Start Date End Date Kianna Izquierdo [address] [place] [phone] PCP - General 05/30/22 Kianna Izquierdo [address] [place] [address] 05/30/22 Hardboard Grinder Relationship Specialty Start Date End Date Kianna Izquierdo [address] [place] [phone] PCP - General 05/30/22 Kianna Izquierdo [address] [place] [address] 05/30/22 Hardboard Grinder Relationship Specialty Start Date End Date Kianna Izquierdo [address] [place] [phone] PCP - General 05/30/22 Kianna Izquierdo [address] [place] [address] 05/30/22 Hardboard Grinder Relationship Specialty Start Date End Date Kianna Izquierdo [address] [place] [phone] PCP - General 05/30/22 Kianna Izquierdo [address] [place] [address] 05/30/22 Hardboard Grinder Relationship Specialty Start Date End Date Ria Longoria MD [address] [place] [phone] PCP - General Hospitalist 09/23/24 Team Status: [...] September 30, 2024 End: September 30, 2024 Hardboard Grinder Relationship Specialty Start Date End Date Ria Longoria MD [address] [place] [phone] PCP - General Hospitalist 09/23/24 Kianna Izquierdo [address] [place] [phone] 09/23/24 Kianna Izquierdo [address] [place] [address] 05/30/22 Hardboard Grinder Relationship Specialty Start Date End Date Ria Longoria MD [address] [place] [phone] PCP - General Hospitalist 09/23/24 Kianna Izquierdo [address] [place] [address] 09/23/24 Kianna Izquierdo [address] [place] [address] 05/30/22 Reason for Visit (unrecogniz ed section and content) Reason Comments Fall Pt found down this a m in facility brought in by EMS.. Team Specialty Diagnoses / Procedures Referred By Contalice t Referred To Contact Diagnoses Unilateral primary osteoarthritis, right knee Unilateral primary osteoarthritis, right knee [M17.11] Procedures CA ARTHRP KNE CONDYLE&PLATU MEDIAL&LAT COMPARTMENTS Right Total Knee Arthroplasty Almas Laureano MD [address] [facility] [address] [place] [address] [facility] [address] [place] [address] Referral ID Status Reason Start Date Expiration Date Visits Re quested Visits Authorized [id number] 1 1 Reason Onset Date Comments Advice Only 01/16/2023 Reason Comments Post-op IPO: Rt TKA 3 Reason Comments Follow-up Rt TKA . Reason Comments Follow-up FU right hip Specialty Diagnoses / Procedures Referred By Ksenia cordova Referred To Contact Radiology Diagnoses Right hip pain Procedures MR hip right wo Almas Laureano MD [address] [facility] [address] [place] [address] Referral ID Status Reason Start Date Expiration Date V isits Requested Visits Authorized [id number] Authorized 09/13/2023 09/12/2024 1 1 Reason Onset Date Comments OTHER 07/12/2022 Reason Comments Fall Fall and hit head on floor. c/o R hip pain. Baseline Aox3, per EMS Aox1-2. Takes plavix and has been feeling ill lately. Specialty Diagnoses / Procedures Referred By Ksenia cordova Referred To Contact Diagnoses Pneumonia due to organism Pneumonia due to infectious agent Procedures [id number] Lashon Sullivan MD [address] [place] [address] Phone: tel: fax: [facility] Observation Unit [address] [place] [phone] Phone: tel: Referral ID Status Reason Start Date Expiration Date Visits Re quested Visits Authorized [id number] 1 1 Reason Comments Follow-up Low Back [...] BE BASED ON THE PRIMARY CLINICAL RECORDS. [employer] provides no warranty or guarantee of the accuracy or completeness of information in this document.
[2025-07-25 07:38] LABS: Hematocrit 34.1 % (37-47); Hemoglobin 11.1 g/dL (12.0-15.0); Mean Corp Hgb Conc 32.6 g/dL (32-36); Mean Corpuscular Volume 95.3 fL (81-99); Mean Platelet Vol. 10.0 fl (6.2-12.0); Platelet Count 221 K/mm3 (150-450); RBC Distribution Width CV 12.4 % (11.6-14.6); RBC Distribution Width SD 43.6 fl (35.1-43.9); Red Blood Count 3.58 M/mm3 (4.2-5.4); White Blood Count 5.4 K/mm3 (4.4-11.0)
[2025-07-25 08:00] LABS: Anion Gap 9 (5-15); BUN 13 mg/dL (4-19); BUN/Creat Ratio 19.3 RATIO (10-20); Calcium,Total 8.6 mg/dL (7.6-11.0); Carbon Dioxide 27.6 mmol/L (21.0-32.0); Chloride 106 mmol/L (98-108); Glucose 87 mg/dL (70-99); Magnesium 1.8 mg/dL (1.5-2.2); Potassium 3.4 mmol/L (3.3-5.1)
== END ==
LOC: OLS.SANC 05:00
PROVIDERS: Visit Provider Internal Medicine
DX: E78.5 Hyperlipidemia, unspecified (principal); E83.42 Hypomagnesemia; N17.9 Acute kidney failure, unspecified; E87.6 Hypokalemia
CPT/HCPCS: 36415; 80048; 83735; 85027